=== PATIENT | male | born 1940 | race Caucasian/White ===

== ENCOUNTER 2018-06-17 09:38 | Inpatient (IN) | payer MEDICARE, OTHER ==
[~2018-06-17] VITALS: Ht 170.2 cm; Wt 83.5 kg
--- OUTSIDE RECORDS SUMMARY | ~2018-06-17 | XMS | Encounter Summary ---
Demographics + + + | Address | [address] | | | [place] [address] | + + + | Home Phone | | + + + | Preferred Language | Unknown | + + + | Marital Status | Unknown | + + + | Yazidi Affiliation | PRO | + + + | Race | White | + + + | Ethnic Group | Not or | + + + Author + + + | Author | [facility] | + + + | Organization | [facility] | + + + | Address | Unknown | + + + | Phone | Unavailable | + + + Support + + +---------+ + | Name | Relationship | Address | Phone | + + +---------+ + | FATUMA MAS | ECON | Unknown | | + + +---------+ + Care Team Providers + +------+ + | Care Bolt Header Name | Role | Phone | + +------+ + | Gilberto Estrada MD | PCP | | + +------+ + Encounter Details +--------+ + + + + | Date | Type | Department | Care Team | Description | +--------+ + + + + | 06/12/ | Anesthesia | 6A Intra [facility] | Princess Ward MD | | | 2018 | Event | [facility] | [address] | | | | | Admitting Desk | [facility] | | | | | Located on the [address] | [place], [place] | | | | | floor [address] | [address] | | | | | [facility] | [phone] | | | | | [place], [place] | | | | | | [address] | | | +--------+ + + + + Anesthesia Record + + + + + | Procedure Name | Responsible | Anesthesia Start | Anesthesia Stop Time | | | Anesthesiologist | Time | | + + + + + | KNEE INCISION AND | | | | | DRAINAGE WITH | | | | | ANTIBIOTIC SPACER | | | | | PLACEMENT (Right ) | | | | + + + + + +----+---+ + + | Da | T | Event | Comment | | te | i | | | | | m | | | | | e | | | +----+---+ + + | 08 | 1 | Quick Note | Wrong patient MRN (patient has 2 MRN/charts). Case was done under | | /1 | 4 | | another posting with correct patient MRN/chart. | | 7/ | 5 | | | | 20 | 0 | | | | 18 | | | | +----+---+ + + +------+ | Meds | +------+ + + + No medications | on file. | + + + + + | No agents on file. | + + + + | No blood administrations on file. | + + +--------+ + +---------+ | Type | Details | Placement | Removal | +--------+ + +---------+ | Wound | 06/11/18; 2229; Yes; Left; | 06/11/182229 by | | | | Medial; leg; Ulceration | Chichi Mackey | | | | | FLY | | +--------+ + +---------+ | Incisi | 06/12/18; 1414; [place]; Right; | 06/12/18 1414 by | | | on | knee | Lauren Vega RN | | +--------+ + +---------+ | PICC - | 06/16/18; 1450; Frances Boo RN; | 06/16/18 1450 by | | | | Valved; Right; Arm; Basilic; 4 | Christina March RN | | | Single | Fr; 1:Purple; Yes; [email or web address] | | | | Lumen | | | | +--------+ + +---------+ in this encounter Social History + +-------+ [...] as of this encounter Plan of Treatment +--------+---------+ + + + | Date | Type | Specialty | Care Team | Description | +--------+---------+ + + + | 07/23/ | Office | Orthopedics | Sandoval Hyde, | | | 2017 | Visit | | [address] | | | | | | [address] | | | | | | [place], [place] | | | | | | [address] | | | | | | [phone] | | | | | | | | +--------+---------+ + + + as of this encounter Visit Diagnoses Not on filein this encounter"
--- OUTSIDE RECORDS SUMMARY | ~2018-06-17 | XMS | Encounter Summary ---
Demographics + + + | Address | [address] | | | [place] [address] | + + + | Home Phone [...] Team Providers + +------+ + | Care Continuing Education Specialist Name | Role | Phone | + +------+ + | Gilma Culver MD | PCP | | + +------+ [...] 06/12/ | Surgery | 6A Intra Op [facility] | Sandoval Hyde, | RIGHT KNEE I&D, POLY | | 2017 | | [facility] | MD [address] | EXCHANGE MICRO x 7 | | | | Admitting Desk | [facility] | PATH x 2 | | | | Located on the | [place], [place] | | | | | floor [address] | [address] | | | | | [facility] | [phone] | | | | | [place], [place] | | | | | | [address] | | | +--------+---------+ + + + [...] + + + as of this encounter Last Filed Vital Signs + + + + | Vital Sign | Reading | Time Taken | + + + + | Blood Pressure | 119/47 | 06/17/2018 10:02 AM PDT | + + + + | Pulse | 76 | 06/17/2018 10:02 AM PDT | + + + + | Temperature | 36.7 C (98.1 F) | 06/17/2018 3:48 AM PDT | + + + + | Respiratory Rate | 14 | 06/17/2018 3:48 AM PDT | + + + + | Oxygen Saturation | 99% | 06/17/2018 10:02 AM PDT | + + + + | Inhaled Oxygen | - | - | | Concentration | | | + + + + | Weight | 89.9 kg (198 lb 3.2 | 06/17/2018 7:35 AM PDT | | | oz) | | + + + + | Height | 170.2 cm (5' 7") | 06/12/2018 9:33 PM PDT | + + + + | Body Mass Index | 31.04 | 06/17/2018 7:35 AM PDT | + + + + in this encounter Functional Status + + [...] + + + as of this encounter Discharge Summaries Zack Mahmood MD - 06/16/2018 5:49 PM PDTFormatting of this note may be different from the original. Clinical Hospitalist Discharge Summary PCP: Gilma Culver MD Author: Zack Mahmood MD Discharging Physician: Zack Mahmood MD Admission Date: 06/11/2018 Discharge Date: [...] polyethylene exchange on 06/12/18 Reason For Admission: Duane Mas is a 78 y.o. 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 He will F/U with Dr. Hyde (orthopedic surgery) on 07/23/18 at 10:40am. ID will arran ge a follow-up appointment for that day as well. He has been receiving Tylenol #3 for pain c ontrol with excellent response. He will continue PT/OT at [facility] swing bed unit. Per orthopedic surgery, [...] superior vena cava Consultants: Orthopedic surgery- Dr. Sandoval Hyde ID- Dr. Ishaan Villalobos Outstanding labs/studies: none Code Status: Full POLST completed: no Core Measures: Diagnosis of CHF: Yes. Patient is not on an OMID-I/ARB because of renal og lure. Patient is [...] I-CAPS 280-10-2 mg Cap Generic drug: antiox.mv no.[id number] Take 1 capsule by mouth once daily. [...] (Non-Steroidal Anti-Inflammatory Drug) Renal Failure Avoid per Health Promotion Manager recommendations Sulfa (Sulfonamide Antibiotics) Rash Vital Signs [...] for after-discharge care Discharge Destination IP [facility] . Specialty: Acute Care Hospital Contact information [address] [place] [address] [place] Location: [facility] swing bed unit Appointments: Dr. Hyde on 07/23/18 at 10:40am. The discharge note was forwarded to the PCP for review. Discharging Physician: Zack Mahmood MD Suggested CPT: 33487 Discharge Management > 30 minute I spent more than 35 minutes gryj-cc-uapy with the patient of which 70% was spent counselin g the patient about plans for discharge and F/U with ortho and ID, and coordinating care wit h nursing, ortho, ID and case management. in this encounter Discharge Instructions Padmini Magaña RN - 06/17/2018Patient Education Materials: AVS Additional Instructions: None Discharge Nurse: PADMINI MAGAÑA RN Date: 06/17/2018 Discharge Time: 10:58 AM in this encounter Medications at Time of Discharge + + + +---------+ + + | Medication | Sig. | Disp. | Refills | Start | End Date [...] | Take 1 tablet by | | | | | | acetaminophen-codein | mouth every six | | | | | | e 300-30 mg oral | hours as needed. | | | | | | tablet | | | | | | + + + +---------+ + + | allopurinol 300 mg | Take 150 mg by mouth | | | | | | oral tablet | once daily. | | | | | + + + +---------+ + + | allopurinol 300 mg | Take 300 mg by mouth | | | | | | oral tablet | once daily. | | | | | + + + +---------+ + + | antiox.mv | Take 1 capsule by | | | | | | no.[id number] | mouth once daily. | | | | | | (I-CAPS) 280-10-2 | | | | | | | mg oral capsule | | | | | | + + + +---------+ + + | carvedilol 12.5 mg | Take 12.5 mg by | | | | | | oral tablet | mouth two times | | | | | | | daily. Administer | | | | | | | with food. | | | | | + + + +---------+ + + | carvedilol 12.5 mg | Take 12.5 mg by | | | | | | oral tablet | mouth two times | | | | | | | daily. Administer | | | | | | | with food. | | | | | + + + +---------+ + + | ceFAZolin | Inject 2,000 mg into | 180 g | 1 | 06/17/20 | | | injection recon | the vein (IV) every | | | 18 | 8 | | solnIndications: | eight hours. To be | | | | | | bone/joint infection | admixed per infusion | | | | | | | pharmacy standard | | | | | | | policy and/or | | | | | | | procedure. | | | | | | | Indications: | | | | | | | bone/joint infection | | | | | + + + +---------+ + + | cephALEXin 500 mg | Take 500 mg by mouth | | | | | | oral capsule | every six hours. | | | | | + + + +---------+ + + | cholecalciferol | Take 1,000 Units by | | | | | | (Vitamin D3) 1,000 | mouth once daily. | | | | | | unit oral tablet | | | | | | + + + +---------+ + + | colchicine 0.6 mg | Take 0.6 mg by mouth | | | | | | oral tablet | two times daily. | | | | | + + + +---------+ + + | colchicine 0.6 mg | Take 0.6 mg by mouth | | | | | | oral tablet | once daily as | | | | | | | needed (gout flare). | | | | | | | | | | | | + + + +---------+ + + | doxycycline | Take 100 mg by mouth | | | | | | hyclate 100 mg oral | every twelve hours. | | | | | | tablet | (Pharmacist to | | | | | | | substitute salt form | | | | | | | as needed) | | | | | + + + +---------+ + + | eplerenone 25 mg | Take 12.5 mg by | | | | | | oral tablet | mouth once daily. | | | | | + + + +---------+ + + | | Inhale 1 puff two | | | | | | fluticasone-salmeter | times daily. | | | | | | ol 250-50 mcg/dose | | | | | | | inhalation blister | | | | | | | with device | | | | | | + + + +---------+ + + | folic acid 0.4 mg | Take 400 mcg by | | | | | | oral tablet | mouth once daily. | | | | | + + + +---------+ + + | folic acid 0.4 mg | Take 400 mcg by | | | | | | oral tablet | mouth once daily. | | | | | + + + +---------+ + + | glimepiride 4 mg | Take 4 mg by mouth | | | | | | oral tablet | once daily with | | | | | | | breakfast. | | | | | + + + +---------+ + + | glimepiride 4 mg | Take 4 mg by mouth | | | | | | oral tablet | once daily with | | | | | | | breakfast. | | | | | + + [...] Thrombosis | | | | | | Deep Vein | Prevention | | | | | | Thrombosis | | | | | | | Prevention | | | | | | + + + +---------+ + + | isosorbide | Take 60 mg by mouth | | | | | | mononitrate CR 60 mg | once daily. | | | | | | oral tablet | | | | | | | extended release 24 | | | | | | | hr | | | | | | + + + +---------+ + + | magnesium oxide | Take 400 mg by mouth | | | | | | 400 mg oral tablet | once daily. | | | | | + + + +---------+ + + | magnesium oxide | Take 400 mg by mouth | | | | | | 400 mg oral tablet | once daily. | | | | | + + + +---------+ + + | metFORMIN 500 mg | Take 500 mg by mouth | | | | | | oral tablet | two times daily. | | | | | + + + +---------+ + + | metFORMIN SR 500 | Take 1,000 mg by | | | | | | mg oral tablet | mouth two times | | | | | | extended release 24 | daily with meals. | | | | | | hr | Administer with | | | | | | | evening meal. | | | | | + + + +---------+ + + | methotrexate 2.5 | Take 15 mg by mouth | | | | | | mg oral tablet | every seven days. | | | | | + + + +---------+ + + | methotrexate 2.5 | Take 2.5 mg by mouth | | | | | | mg oral tablet | every seven days. | | | | | + + + +---------+ + + | multivitamin oral | Take 1 tablet by | | | | | | tablet | mouth once daily. | | | | | + + + +---------+ + + | mupirocin 2 % | three times daily. | | | | | | topical ointment | Apply to affected | | | | | | | area. | | | | | + + + +---------+ + + | niacin 500 mg oral | Take 500 mg by mouth | | | | | | tablet | once daily in the | | | | | | | evening. | | | | | + + + +---------+ + + | Niacinamide 500 mg | Take 1 tablet by | | | | | | oral tablet | mouth three times | | | | | | | daily. | | | | | + + + +---------+ + + | omega | Take by mouth. | | | | | | 2-gnx-lhl-fish oil | | | | | | | (FISH OIL) | | | | | | | 100-160-1,000 mg | | | | | | | oral capsule | | | | | | + + + +---------+ + + | omega-3 fatty | Take 1 capsule by | | | | | | acids (FISH OIL | mouth once daily. | | | | | | ORAL) | | | | | | + + + +---------+ + + | senna-docusate | Take 1 tablet by | 60 | 0 | 06/16/20 | | | 8.6-50 mg oral | mouth two times | tablet | | 18 | | | tablet | daily. | | | | | + + + +---------+ + + | simvastatin 40 mg | Take 40 mg by mouth | | | | | | oral tablet | once daily in the | | | | | | | evening. | | | | | + + + +---------+ + + | torsemide 20 mg | Take 20 mg by mouth | | | | | | oral tablet | once daily. | | | | | + + + +---------+ + + | torsemide 20 mg | Take 20 mg by mouth | | | | | | oral tablet | two times daily. | | | | | + + + +---------+ + + | triamcinolone | Apply to affected | | | | | | acetonide 0.1 % [...] Take 2.5 mg by mouth | | | | | | oral tablet | once daily. | | | | | + + + +---------+ + + | warfarin 2.5 mg | Take 2 tablets by | | | | | | oral tablet | mouth every | | | | | | | Friday. Take 1 | | | | | | | tablet by mouth all | | | | | | | other days of the | | | | | | | week. | | | | | + + + +---------+ + + as of this encounter Progress Notes Elias Soriano MD - 06/17/2018 7:56 AM PDTFormatting of this note may be different from the original. 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 Orthopaedic Procedure(s) & Date(s): 06/13/2018 1. Right knee arthrotomy with drainage for infection and polyethylene exchange 2. Application TINO disposible negative pressure wound therapy dressing right knee [id number] Subjective: Doing ok overall. No CP/SOB. Tolerating [...] refill < 2 seconds Assessment & Plan: Duane Mas is a 78 y.o.M with the orthopaedic diagnoses and procedures listed above. Today's specific concerns include: Recovering well. PICC placed yesterday. ID final recs for 6 weeks of IV ceftriaxone. Dispo: Plan to DC today to SNF in [place]. SNF can pull sutures at 2 weeks from operat kai date (June 27 is 2 weeks post op). Plan to return to Dr. Hyde' clinic 6 weeks an d also have ID clinic visit on that day. Appreciate [facility] and ID help in managing this [...] knee at that time. Elias Soriano MD [facility] Department of Orthopaedics and Rehabilitation PGY-1 Pager [phone] Zack Mahmood MD - 06/16/2018 4:42 PM PDTFormatting of this note may be different from the original. HOSPITALIST INPATIENT PROGRESS NOTE Author: Zack Mahmood MD PCP: Gilma Culver MD Hospital Day:5 24h Events: Changed from [...] lower superior vena cava Assessment and plan: Duane Mas is a 78 y.o. 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 systolic heart failure (EF 45%) [...] eta afua, statin, aldosterone antagonist, without recent OMID inbitor / ARB use given prog ressive [...] Dispo: Anticipate discharge tomorrow to [facility] bed unit if renal function is s table Code status: Full code Diet: Regular diet Prophy: warfarin and heparin Zack Mahmood MD Bed Control Specialistpainting department supervisor Clinical Hospitalist and Medicine Teaching Services [facility] Pager [phone] Suggested CPT: 67906 Subsequent Visit Detailed/High complexity 35 min I spent 37 minutes ouhs-kx-hkho with the patient of which 78% was spent counseling the kassy ent about his infection, kidneys and heart and talking about discharge plans, and in coordin ation of care with nursing, pharmacy and case management. Elias Soriano MD - 06/16/2018 9:24 AM PDTFormatting of this note may be different from the original. 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 Orthopaedic Procedure(s) & Date(s): 06/13/2018 1. Right knee arthrotomy with drainage for infection and polyethylene exchange 2. Application TINO disposible negative pressure wound therapy dressing right knee [id number] Subjective: Doing ok overall. No CP/SOB. Tolerating [...] neuropathy baseline "whole foot is numb" (per massiel chris). Unchanged sensation to deep/superficial peroneal, lateral/medial plantar distributio ns Vascular: digits warm & well perfused, capillary refill < 2 seconds Assessment & Plan: Duane Mas is a 78 y.o.M with the [...] to home as t ransporting back to [place] may present the patient and family undo hardship. 6. Dressings/Drains: Pulled yesterday? 7. Dispo/Discharge: Anticipate discharge to SNF in next 1-3 days if all criteria met. 8. Follow-up: Please call the clinic to make a follow up appointment in approximately 2 wee ks with ORTHO TRAUMA & FRACTURE, . AP and lateral of R knee at that time. Elias Soriano MD [facility] Department of Orthopaedics and Rehabilitation PGY-1 Pager [phone] Tanvir Ayala - 06/16/2018 8:20 AM PDTFormatting of this note may be different from the natalia ginal. INPATIENT INFECTIOUS DISEASE PROGRESS NOTE ID TEAM: B Patient: Duane Mas PCP: Gilma Culver MD Author: Tanvir Ayala Date of Admission: [...] three and a half hours away from [place]. At this time, we are unsur e of his ability to follow up with an OPAT clinic or if there is a provider near [place], where the patient resides. 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 This patient was staffed [facility] Dr. Villalobos, who agrees with the above assessment and plan unless otherwise documented. Tanvir Ayala, [facility] P SUBJECTIVE Interval Events: No acute events overnight S: patient reports he is feeling well this morning. States he was able to meet with a director case and had decided to go to a [...] 5 mg 5 mg oral QPM Stephan Mercado MD - 06/15/2018 8:18 AM PDTFormatting of this note may be different from the original. HOSPITALIST INPATIENT PROGRESS NOTE Author: Dona Mercado MD PCP: Gilma Culver MD Hospital Day:4 ID:This is an 78 [...] beta afua, statin, aldosterone antagonist, without recent OMID inb itor / ARB use given progressive renal dysfunction. Also uses torsemide 20 mg bid at home. W ill likely need to restart diuretics once patient begins taking in more PO. - Lift Na/fluid restriction today - daily weights, strict I/Os - hold diuretics for now (torsemide, spironolactone) - cont carvedilol 12.5 mg bid - no OMID/ARB given renal dysfunction #DM2 - Non-insulin dependent. [...] Dona Mercado MD Division of Hospital Medicine [facility] Pager [phone] I spent more than 35 minutes njis-wq-jnud with the patient of which greater than 50% was sp ent counseling the patient or in coordination of care. Sisi Pablo, AGACNP - 06/15/2018 7:40 AM PDTFormatting of this note may be different from the original. 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 Orthopaedic Procedure(s) & Date(s): 06/13/2018 1. Right knee arthrotomy with drainage for infection and polyethylene exchange 2. Application TINO disposible negative pressure wound therapy dressing right knee [id number] Subjective: Doing ok overall, not too much pain in right knee. Looking forward to getting insulation board back tender to home, "My wants to [...] neuropathy baseline "whole foot is numb" (per massiel chris) Vascular: digits warm & well perfused, capillary refill < 2 seconds Assessment & Plan: Duane Mas is a 78 y.o.M with the [...] to home as t ransporting back to [place] may present the patient and family undo hardship. 6. Dressings/Drains: Continue drain 7. Dispo/Discharge: Anticipate discharge to SNF in next 1-3 days if all criteria met. 8. Follow-up: Please call the clinic to make a follow up appointment in approximately 2 wee ks with ORTHO TRAUMA & FRACTURE, . AP and lateral of R knee at that time. Sisi Pablo, [facility] Orthopaedic Trauma Surgery Pager [phone] Stephan Mercado MD - 06/14/2018 8:59 AM PDTFormatting of this note may be different from the original. HOSPITALIST INPATIENT PROGRESS NOTE Author: Dona Mercado MD PCP: Gilma Culver MD Hospital Day:3 ID:This is an 78 [...] afua, statin, aldosterone antagon ist, without recent OMID inbitor / ARB use given progressive renal dysfunction. Also uses tor semide 20 mg bid at home. Will likely need to restart diuretics once patient begins taking i n more PO. - Na/fluid restriction, daily weights, strict I/Os - no diuretics for now (torsemide, spironolactone) - cont carvedilol 12.5 mg bid - no OMID/ARB given renal dysfunction #DM2 - Non-insulin dependent. [...] Dona Mercado MD Division of Hospital Medicine [facility] Pager [phone] I spent more than 35 minutes [id number] with the patient of which greater than 50% was sp ent counseling the patient or in coordination of care. Serenity Pleitez MD - 06/14/2018 8:53 AM PDTFormatting of this note may be different fro m the original. 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 Orthopaedic Procedure(s) & Date(s): 06/13/2018 1. Right knee arthrotomy with drainage for infection and polyethylene exchange 2. Application TINO disposible negative pressure wound therapy dressing right knee [id number] Subjective: Pain improving in R knee. Objective: [...] refill < 2 seconds Assessment & Plan: Duane Mas is a 78 y.o.M with the [...] a follow [facility] 2 [facility] with ORTHO TRAUMA & FRACTURE, . AP and lateral of R knee at that time. SERENITY PLEITEZ MD Pager [phone] Stephan Mercado MD - 06/13/2018 9:51 AM PDTFormatting of this note may be different from the original. HOSPITALIST INPATIENT PROGRESS NOTE Author: Dona Mercado MD PCP: Gilma Culver MD Hospital Day:2 ID: This is an [...] beta afua, statin, aldosterone antagonist, without recent OMID inbi tor / ARB use given progressive renal dysfunction. Also uses torsemide 20 mg bid at home. Wi ll likely need to restart diuretics once patient begins taking in more PO. - Na/fluid restriction, daily weights, strict I/Os - no diuretics for now (torsemide, spironolactone) - cont carvedilol 12.5 mg bid - no OMID/ARB given renal dysfunction #DM2 - Non-insulin dependent. [...] Dona Mercado MD Division of Hospital Medicine [facility] Pager [phone] I spent more than 35 minutes xmrt-rk-kzno with the patient of which greater than 50% was sp ent counseling the patient or in coordination of care. Serenity Pleitez MD - 06/13/2018 8:20 AM PDTFormatting of this note may be different fro m the original. 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 Orthopaedic Procedure(s) & Date(s): 06/13/2018 1. Right knee arthrotomy with drainage for infection and polyethylene exchange 2. Application TINO disposible negative pressure wound therapy dressing right knee [id number] Subjective: Painful in R knee today, but [...] refill < 2 seconds Assessment & Plan: Duane Mas is a 78 y.o.M with the [...] lateral of R knee at that time. SERENITY PLEITEZ MD Pager [phone] Stephan Mercado MD - 06/12/2018 1:24 PM PDTFormatting of this note may be different from the original. HOSPITALIST INPATIENT PROGRESS NOTE Author: Dona Mercado MD PCP: Gilma Culver MD Hospital Day:1 ID: This is an [...] well. Ready for surgery today. Current Medications: [DEC Hold] dextrose 5%-NaCl 0.45% IV infusion, 50 mL/hr, intravenous, CONTINUOUS [DEC Hold] dextrose 50 % in water IV 25 mL, 25 mL, intravenous, PRN [DEC Hold] glucagon (GLUCAGEN) injection 1 mg, 1 mg, intramuscular, PRN [DEC Hold] glucose chewable tablet 16 g, 16 g, oral, PRN [DEC Hold] insulin lispro (HUMALOG) injection, , subcutaneous, [...] beta afua, statin, aldosterone antagonist, without recent OMID inbi tor / ARB use given progressive renal dysfunction. Also uses torsemide 20 mg bid at home. - Na/fluid restriction, daily weights, strict I/Os - no diuretics for now - cont carvedilol 12.5 mg bid - hold spironolactone for now - no OMID/ARB given renal dysfunction #DM2 - Non-insulin dependent. [...] Dona Mercado MD Division of Hospital Medicine [facility] Pager [phone] I spent more than 35 minutes [id number]-kz-[id number] with the patient of which greater than 50% was sp ent counseling the patient or in coordination of care. in this encounter Plan of Treatment +--------+---------+ + + + | Date | Type | Specialty | Care Team | Description | +--------+---------+ + + + | 07/23/ | Office | Orthopedics | Sandoval Hyde, | | | 2019 | Visit | | [address] | | | | | | [address] | | | | | | [place], [place] | | | | | | [address] | | | | | | [phone] | | | | | | | | +--------+---------+ + + + + +--------+ + + | Name | Priori | Associated Diagnoses | Date/Time | | | ty | | | + +--------+ + + | CULTURE, BLOOD BACTI & YEAST | Urgent | | 06/11/2018 10:29 PM | | | | | PDT | + +--------+ + + | CULTURE, BLOOD BACTI & YEAST | Urgent | | 06/11/2018 10:29 PM | | | | | PDT | + +--------+ + + | CULTURE, BLOOD BACTI & YEAST [facility] | Urgent | | 06/11/2018 10:29 PM | | | | | PDT | + +--------+ + + | CULTURE, BLOOD BACTI & YEAST [facility] | Urgent | | 06/11/2018 10:29 PM | | | | | PDT | + +--------+ + + | TYPE AND SCREEN | Urgent | | 06/12/2018 10:23 PM | | | | | PDT | + +--------+ + + | CULTURE, BODY FLUID | Urgent | | 06/12/2018 1:43 PM | | | | | PDT | + +--------+ + + | CULTURE, TISSUE-PROSTHETIC JOINT | Routin | | 06/12/2018 1:54 PM | | INFECTION AER AND MARIELOS | e | | PDT | + +--------+ + + | CULTURE, TISSUE-PROSTHETIC JOINT | Routin | | 06/12/2018 1:54 PM | | INFECTION AER AND MARIELOS | e | | PDT | + +--------+ + + | CULTURE, TISSUE-PROSTHETIC JOINT | Routin | | 06/12/2018 1:54 PM | | INFECTION AER AND MARIELOS | e | | PDT | + +--------+ + + | CULTURE, TISSUE-PROSTHETIC JOINT | Routin | | 06/12/2018 1:54 PM | | INFECTION AER AND MARIELOS | e | | PDT | + +--------+ + + | CULTURE, TISSUE-PROSTHETIC JOINT | Routin | | 06/12/2018 1:54 PM | | INFECTION AER AND MARIELOS | e | | PDT | + +--------+ + + + +--------+ + + | Name | Priori | Associated Diagnoses | Order Schedule | | | ty | | | + +--------+ + + | CULTURE, BLOOD BACTI & YEAST | Urgent | | One Time for 1 | | | | | Occurrences starting | | | | | 06/11/2018 until | | | | | 06/11/2018 | + +--------+ + + | CULTURE, BLOOD BACTI & YEAST | Urgent | | One Time for 1 | | | | | Occurrences starting | | | | | 06/11/2018 until | | | | | 06/11/2018 | + +--------+ + + | TYPE AND SCREEN | Urgent | | One Time for 1 | | | | | Occurrences starting | | | | | 06/12/2018 until | | | | | 06/12/2018 | + +--------+ + + | ANTIBODY SCREEN | Urgent | | Once for 1 | | | | | Occurrences starting | | | | | 06/12/2018 until | | | | | 06/12/2018 | + +--------+ + + | BASIC METABOLIC SET (NA, K, CL, | Routin | | Daily, default to | | TCO2, BUN, CR, GLU, CA) | e | | 0500. until | | | | | discontinued | | | | | starting 06/15/2018, | | | | | 3 completed | + +--------+ + + | INR | Routin | | Daily, default to | | | e | | 0500. until | | | | | discontinued | | | | | starting 06/16/2018, | | | | | 2 completed | + +--------+ + + | X-RAY PORTABLE CHEST PICC LINE | Routin | | As Needed for 3 | | CHECK | e | | Occurrences starting | | | | | 06/15/2018 | + +--------+ + + as of this encounter Procedures + +--------+ + + + | Procedure Name | Priori | Date/Time | Associated Diagnosis | Comments | | | ty | | | | + +--------+ + + + | KNEE INCISION AND | Urgent | 06/12/2018 | RIGHT KNEE | | | DRAINAGE WITH | | 2:15 PM | PROSTHETIC JOINT | | | ANTIBIOTIC SPACER | Surgic | PDT | INFECTION | | | PLACEMENT | al | | | | + +--------+ + + + in this encounter Results CAPILLARY BLOOD GLUCOSE (NO CHG), POC (06/17/2018 8:59 AM) + +---------+ + | Component | Value | Ref Range | + +---------+ + | BLOOD GLUCOSE, POC | 135 (H) | 70 - 99 mg/dL | + +---------+ + + + + | Specimen | Performing Laboratory | + + + | | [facility], POINT OF CARE TESTS [address] | | | [place] [address] | + + + INR (06/17/2018 3:59 AM) + + + + | Component | Value | Ref Range | + + + + | INR | 1.78 (H) | 0.90 - 1.20 INR | + + + + + + + | Specimen | Performing Laboratory | + + + | Blood | [facility], CORE [address] | | | [place] [address] | + + + + + | Narrative | + + | INR Therapeutic ranges for full anticoagulation: INR for Venous | | Thromboembolism (2.0 - 3.0) INR INR for most patients with | | mech. valves (2.5 - 3.5) INR | + + BASIC METABOLIC SET (NA, K, CL, TCO2, BUN, CR, GLU, CA) (06/17/2018 3:59 AM) + + + + | Component | Value | Ref Range | + + + + | GLUCOSE, PLASMA | 154 (H) | 70 - 99 mg/dL | | (LAB) | | | + + + + | BUN, PLASMA (LAB) | 40 (H) | 6 - 20 mg/dL | + + + + | CREATININE PLASMA | 1.73 (H) | 0.70 - 1.30 mg/dL | | (LAB) | | | + + + + | EGFR - | 46 (L) | >60 mL/min | | PARAGUAYAN | | | + + + + | EGFR NON | 38 (L) | >60 mL/min | | -PARAGUAYAN | | | + + + + | SODIUM, PLASMA (LAB) | 138 | 136 - 145 mmol/L | + + + + | POTASSIUM, PLASMA | 4.0 | 3.4 - 5.0 mmol/L | | (LAB) | | | + + + + | CHLORIDE, PLASMA | 101 | 97 - 108 mmol/L | | (LAB) | | | + + + + | TOTAL CO2, PLASMA | 32 | 21 - 32 mmol/L | | (LAB) | | | + + + + | CALCIUM, PLASMA | 8.5 (L) | 8.6 - 10.2 mg/dL | | (LAB) | | | + + + + | ANION GAP | 5 | 4 - 11 mmol/L | + + + + | POTASSIUM CMNT | No Hemo | | + + + + + + + | Specimen | Performing Laboratory | + + + | Blood | [facility], CORE [address] | | | [place] [address] | + + + + + | Narrative | + + | GFR is estimated using the MDRD equation recommended by the National Kidney Disease | | Education Program. Estimated GFR Interpretive Information: <60 mL/min/1.73 sq | | m Chronic Kidney Disease <15 mL/min/1.73 sq | | m Kidney Failure Estimated GFR greater that 60 mL/min/1.73 | | sq m is of limited clinical value. The MDRD equation is not valid in the following | | situations: - Patients under 18 years of age - Severe malnutrition or obesity - | | Vegetarian diet - Rapidly changing kidney function - Amputees, paraplegics, or other | | muscle-wasting diseses | + + CAPILLARY BLOOD GLUCOSE (NO CHG), POC (06/16/2018 11:20 PM) + +---------+ + | Component | Value | Ref Range | + +---------+ + | BLOOD GLUCOSE, POC | 204 (H) | 70 - 99 mg/dL | + +---------+ + + + + | Specimen | Performing Laboratory | + + + | | [facility], POINT OF CARE TESTS [address] | | | [place] [address] | + + + CAPILLARY BLOOD GLUCOSE (NO CHG), POC (06/16/2018 6:31 PM) + +---------+ + | Component | Value | Ref Range | + +---------+ + | BLOOD GLUCOSE, POC | 284 (H) | 70 - 99 mg/dL | + +---------+ + + + + | Specimen | Performing Laboratory | + + + | | [facility], POINT OF CARE TESTS [address] | | | [place] [address] | + + + X-RAY PORTABLE CHEST 1 VIEW (06/16/2018 4:29 PM) + + + | Specimen | Performing Laboratory | + + + | | [facility] VOICE RECOGNITION 2 | + + + + + | Narrative | + + | EXAM: SC CHEST 1 VIEW HISTORY: PICC placement. Prosthetic knee infection. | | COMPARISON: None. FINDINGS: Right upper extremity PICC is obscured by pacer | | leads although tip is likely in the mid or lower superior vena cava.. Dual lead | | pacemaker is in place over the left chest with intact leads. Sternotomy wires are | | intact. The cardiomediastinal contour is normal. Minimal bibasilar | | atelectasis/scarring evident. There is blunting of both costophrenic angles, either | | pleural fluid or thickening. There is no pneumothorax. IMPRESSION: Right upper | | extremity PICC obscured by pacer leads with tip in either the mid or lower superior vena | | cava. I have personally reviewed the images and, if necessary, edited the report. I | | agree with the report as now presented. Final signature: Woody Ortez MD | | 06/16/2018 4:43 PM Preliminary: Claribel Byrnes MD Dictation initiated: Claribel Byrnes MD 06/16/2018 4:27 PM | + + + + | Procedure Note | + + | Service Account, [employer] Res In Interface - 06/16/2018 4:44 PM PDT EXAM: SC CHEST 1 | | VIEW HISTORY: PICC [...] MD 06/16/2018 4:27 PM | + + PICC LINE (06/16/2018 3:40 PM) + + | Narrative | + + | Alina Mayberry RN 06/16/2018 3:44 PM PICC LINE Performed by: CRISTINA | | ALINA Authorized by: ZACK MAHMOOD PICC/Midline Insertion Procedure Note | | Indications:Administration IV fluids and meds, Antibiotics and Frequent lab draws | | Procedure location: Unit:[facility] Room: 14 Providers: Attending name: Attending | | physically present: No PICC Nurse name: Alina Fair RN BSN VAT Assisted by | | Christina March RN BSN VAT Pre-Procedure Consent: written consent obtained Consent | | given by: Patient Patient identity confirmed per protocol: Yes Team Pause: | | Immediatly prior to the procedure a pause per protocol was called. A pause verifies | | correct patient, procedure, equipment, system support specialist and site/side marked as required. | | CLABSI Prevention Bundle: Skin preparation: Chloraprep Protective | | barrier: Cap, Mask, Hand scrub, Gown, Gloves and Full body drape. Cap and mask | | worn by assistive personnel.Sterile Ultrasound techniques (sterile gel, and sterile | | probe cover) used Dressing: Dressing applied prior | | of removal of full barrier drape and hemostatic agent applied Procedure Details | | Patient was placed in appropriate position The vascular anatomy was identified by | | Ultrasound Guidance.wire through the needle, introducer over the wire, then catheter | | through the introducer Tip was placed using TLS (Tip Locating System) and TPS (Tip | | Positioning System). . A non-tunneled PICC Single lumen 4 Fr was placed in the | | Right Arm area Basilic vein. Catheter lot number: [id number] with a length of 55 cm | | was selected and trimmed 14 to a remaining length of 41 cm All ports | | aspirated for blood and flushed with saline Procedure comments: Vessel diameter | | measured without tourniquet at 0.45cm Upper arm measured 10cm above the AC at 30.5cm | | Power-injectable line: yes Attempts 1 attempt(s) were made Complications None | | PICC catheter tip location Chest radiograph ordered to verify placement and Line | | verified by radiograph Adjustments made after chest film obtained: None External | | measurement of catheter exposed: 0 cm. PICC catheter tip location: Distal SVC | | Estimated blood loss: <10mL | + + VAT: PICC INSERTION W/US (06/16/2018 2:15 PM) + + | Narrative | + + | See procedure note. | + + CAPILLARY BLOOD GLUCOSE (NO CHG), POC (06/16/2018 9:03 AM) + +---------+ + | Component | Value | Ref Range | + +---------+ + | BLOOD GLUCOSE, POC | 123 (H) | 70 - 99 mg/dL | + +---------+ + + + + | Specimen | Performing Laboratory | + + + | | [facility] TEST[facility] [address] | | | [place] [address] | + + + INR (06/16/2018 4:23 AM) + + + + | Component | Value | Ref Range | + + + + | INR | 1.51 (H) | 0.90 - 1.20 INR | + + + + + + + | Specimen | Performing Laboratory | + + + | Blood | [facility], CORE [address] | | | [place] [address] | + + + + + | Narrative | + + | INR Therapeutic ranges for full anticoagulation: INR for Venous | | Thromboembolism (2.0 - 3.0) INR INR for most patients with | | mech. valves (2.5 - 3.5) INR | + + BASIC METABOLIC SET (NA, K, CL, TCO2, BUN, CR, GLU, CA) (06/16/2018 4:23 AM) + + + + | Component | Value | Ref Range | + + + + | GLUCOSE, PLASMA | 122 (H) | 70 - 99 mg/dL | | (LAB) | | | + + + + | BUN, PLASMA (LAB) | 45 (H) | 6 - 20 mg/dL | + + + + | CREATININE PLASMA | 2.03 (H) | 0.70 - 1.30 mg/dL | | (LAB) | | | + + + + | EGFR - | 38 (L) | >60 mL/min | | PARAGUAYAN | | | + + + + | EGFR NON | 32 (L) | >60 mL/min | | -PARAGUAYAN | | | + + + + | SODIUM, PLASMA (LAB) | 135 (L) | 136 - 145 mmol/L | + + + + | POTASSIUM, PLASMA | 3.7 | 3.4 - 5.0 mmol/L | | (LAB) | | | + + + + | CHLORIDE, PLASMA | 99 | 97 - 108 mmol/L | | (LAB) | | | + + + + | TOTAL CO2, PLASMA | 32 | 21 - 32 mmol/L | | (LAB) | | | + + + + | CALCIUM, PLASMA | 8.2 (L) | 8.6 - 10.2 mg/dL | | (LAB) | | | + + + + | ANION GAP | 4 | 4 - 11 mmol/L | + + + + | POTASSIUM CMNT | No Hemo | | + + + + + + + | Specimen | Performing Laboratory | + + + | Blood | [facility], CORE [address] | | | [place] [address] | + + + + + | Narrative | + + | GFR is estimated using the MDRD equation recommended by the National Kidney Disease | | Education Program. Estimated GFR Interpretive Information: <60 mL/min/1.73 sq | | m Chronic Kidney Disease <15 mL/min/1.73 sq | | m Kidney Failure Estimated GFR greater that 60 mL/min/1.73 | | sq m is of limited clinical value. The MDRD equation is not valid in the following | | situations: - Patients under 18 years of age - Severe malnutrition or obesity - | | Vegetarian diet - Rapidly changing kidney function - Amputees, paraplegics, or other | | muscle-wasting diseses | + + CAPILLARY BLOOD GLUCOSE (NO CHG), POC (06/15/2018 10:26 PM) + +---------+ + | Component | Value | Ref Range | + +---------+ + | BLOOD GLUCOSE, POC | 208 (H) | 70 - 99 mg/dL | + +---------+ + + + + | Specimen | Performing Laboratory | + + + | | [facility], POINT OF CARE TESTS [address] | | | [place] [address] | + + + CAPILLARY BLOOD GLUCOSE (NO CHG), POC (06/15/2018 6:52 PM) + +---------+ + | Component | Value | Ref Range | + +---------+ + | BLOOD GLUCOSE, POC | 264 (H) | 70 - 99 mg/dL | + +---------+ + + + + | Specimen | Performing Laboratory | + + + | | [facility] POINT [facility] CARE TESTS [address] | | | [place] [address] | + + + CAPILLARY BLOOD GLUCOSE (NO CHG), POC (06/15/2018 9:29 AM) + +---------+ + | Component | Value | Ref Range | + +---------+ + | BLOOD GLUCOSE, POC | 134 (H) | 70 - 99 mg/dL | + +---------+ + + + + | Specimen | Performing Laboratory | + + + | | [facility], POINT OF CARE TESTS [address] | | | [place] [address] | + + + CBC AND AUTO DIFF (06/15/2018 7:04 AM) + + + + | Component | Value | Ref Range | + + + + | WHITE CELL COUNT | 10.00 | 3.50 - 10.80 K/cu mm | + + + + | RED CELL COUNT | 3.10 (L) | 4.50 - 6.00 M/cu mm | + + + + | HEMOGLOBIN | 9.5 (L) | 13.5 - 17.5 g/dL | + + + + | HEMATOCRIT | 28.8 (L) | 41.0 - 53.0 % | + + + + | MCV | 92.9 | 80.0 - 100.0 fL | + + + + | MCHC | 33.0 | 32.0 - 36.0 g/dL | + + + + | RDW SD | 61.3 (H) | 35.1 - 46.3 fL | + + + + | PLATELET COUNT | 216 | 150 - 400 K/cu mm | + + + + | MPV | 9.4 (L) | 9.7 - 12.3 fL | + + + + | NRBC% | 0.0 | 0.0 - 0.3 % | + + + + | NRBC# | 0.00 | 0.00 - 0.02 K/cu mm | + + + + | NEUTROPHIL % | 66.7 | 50.0 - 70.0 % | + + + + | LYMPHOCYTE % | 21.4 | 18.0 - 42.0 % | + + + + | MONOCYTE % | 10.5 (H) | 3.5 - 9.0 % | + + + + | EOS % | 0.7 (L) | 1.0 - 3.0 % | + + + + | BASO % | 0.2 | 0.0 - 2.0 % | + + + + | IG% | 0.5Comment: Increased immature granulocytes | 0.0 - 1.0 % | | | (IG) define a left shift. Immature | | | | granulocytes (IG) are an automated count of | | | | metamyelocytes, myelocytes and | | | | promyelocytes. Bands are not included in | | | | the IG count. Bands are included in the | | | | neutrophil count. | | + + + + | NEUTROPHIL # | 6.67 | 1.80 - 7.70 K/cu mm | + + + + | LYMPHOCYTE # | 2.14 | 1.00 - 4.80 K/cu mm | + + + + | MONOCYTE # | 1.05 (H) | 0.10 - 0.90 K/cu mm | + + + + | EOS # | 0.07 | 0.00 - 0.50 K/cu mm | + + + + | BASO # | 0.02 | 0.00 - 0.10 K/cu mm | + + + + | IG# | 0.05 | 0.00 - 0.10 K/cu mm | + + + + + + + | Specimen | Performing Laboratory | + + + | Blood | [facility], CORE [address] | | | [place] [address] | + + + + + | Narrative | + + | New pediatric reference ranges for Lymphocyte % in effect April 09, 2018. New | | reference ranges for MCV, MCHC, PLT, IG% and IG# effective 03/05/2018 Increased | | immature granulocytes (IG) define a left shift. Immature granulocytes (IG) are an | | automated count of metamyelocytes, myelocytes and promyelocytes. Bands are not included | | in the IG count. Bands are included in the neutrophil count. | + + CBC, WITH DIFFERENTIAL (06/15/2018 7:04 AM) + + + | Specimen | Performing Laboratory | + + + | Blood | | + + + + + | Narrative | + + | The following orders were created for panel order CBC, WITH DIFFERENTIAL. | | Procedure | | Abnormality Status | | --------- | | ------ CBC AND AUTO | | DIFF[[id number]] Abnormal Final | | result Please view results for these tests on the | | individual orders. | + + BASIC METABOLIC SET (NA, K, CL, TCO2, BUN, CR, GLU, CA) (06/15/2018 7:04 AM) + + + + | Component | Value | Ref Range | + + + + | GLUCOSE, PLASMA | 118 (H) | 70 - 99 mg/dL | | (LAB) | | | + + + + | BUN, PLASMA (LAB) | 44 (H) | 6 - 20 mg/dL | + + + + | CREATININE PLASMA | 2.10 (H) | 0.70 - 1.30 mg/dL | | (LAB) | | | + + + + | EGFR - | 37 (L) | >60 mL/min | | PARAGUAYAN | | | + + + + | EGFR NON | 31 (L) | >60 mL/min | | -PARAGUAYAN | | | + + + + | SODIUM, PLASMA (LAB) | 135 (L) | 136 - 145 mmol/L | + + + + | POTASSIUM, PLASMA | 4.0 | 3.4 - 5.0 mmol/L | | (LAB) | | | + + + + | CHLORIDE, PLASMA | 97 | 97 - 108 mmol/L | | (LAB) | | | + + + + | TOTAL CO2, PLASMA | 29 | 21 - 32 mmol/L | | (LAB) | | | + + + + | CALCIUM, PLASMA | 8.2 (L) | 8.6 - 10.2 mg/dL | | (LAB) | | | + + + + | ANION GAP | 9 | 4 - 11 mmol/L | + + + + | POTASSIUM CMNT | No Hemo | | + + + + + + + | Specimen | Performing Laboratory | + + + | Blood | [facility], CORE [address] | | | [place] [address] | + + + + + | Narrative | + + | GFR is estimated using the MDRD equation recommended by the National Kidney Disease | | Education Program. Estimated GFR Interpretive Information: <60 mL/min/1.73 sq | | m Chronic Kidney Disease <15 mL/min/1.73 sq | | m Kidney Failure Estimated GFR greater that 60 mL/min/1.73 | | sq m is of limited clinical value. The MDRD equation is not valid in the following | | situations: - Patients under 18 years of age - Severe malnutrition or obesity - | | Vegetarian diet - Rapidly changing kidney function - Amputees, paraplegics, or other | | muscle-wasting diseses | + + EOSINOPHILS, URINE (SPOT) (06/15/2018 6:49 AM) + +-------+ + | Component | Value | Ref Range | + +-------+ + | URINE EOSINOPHILS | <1 | <1 % | + +-------+ + + + + | Specimen | Performing Laboratory | + + + | Urine | [facility], CORE [address] [place] [address] | | | [place] [address] | + + + UREA NITROGEN, URINE (06/15/2018 6:49 AM) + +--------+ + | Component | Value | Ref Range | + +--------+ + | UREA NITRO CONC UR | 743 | mg/dL | + +--------+ + | URINE INTERVAL | Random | | + +--------+ + | URINE VOLUME | Spot | | + +--------+ + + + + | Specimen | Performing Laboratory | + + + | Urine | [facility], CORE [address] | | | [place] [address] | + + + + + | Narrative | + + | Reference range based on 24 hour collection time. Patient results are calculated | | from actual collection time. | + + CREATININE, URINE (06/15/2018 6:49 AM) + +--------+ + | Component | Value | Ref Range | + +--------+ + | CREATININE CONC UR | 269.00 | mg/dL | + +--------+ + | URINE INTERVAL | Random | | + +--------+ + | URINE VOLUME | Spot | | + +--------+ + + + + | Specimen | Performing Laboratory | + + + | Urine | [facility], CORE [address] | | | [facility] [address] | + + + + + | Narrative | + + | Reference range based on 24 hour collection time. Patient results are calculated | | from actual collection time. | + + SODIUM TOTAL, URINE (06/15/2018 6:49 AM) + +--------+ + | Component | Value | Ref Range | + +--------+ + | SODIUM CONC URINE | 5 | mmol/L | + +--------+ + | URINE INTERVAL | Random | | + +--------+ + | URINE VOLUME | Spot | | + +--------+ + + + + | Specimen | Performing Laboratory | + + + | Urine | [facility], CORE [address] | | | [place] [address] | + + + + + | Narrative | + + | Reference range based on 24 hour collection time. Patient results are calculated | | from actual collection time. | + + CARDIOLOGY (06/15/2018)CAPILLARY BLOOD GLUCOSE (NO CHG), POC (06/14/2018 9:30 PM) + +---------+ + | Component | Value | Ref Range | + +---------+ + | BLOOD GLUCOSE, POC | 203 (H) | 70 - 99 mg/dL | + +---------+ + + + + | Specimen | Performing Laboratory | + + + | | [facility], POINT OF CARE TESTS [address] | | | [place] [address] | + + + BASIC METABOLIC SET (NA, K, CL, TCO2, BUN, CR, GLU, CA) (06/14/2018 6:00 PM) + + + + | Component | Value | Ref Range | + + + + | GLUCOSE, PLASMA | 192 (H) | 70 - 99 mg/dL | | (LAB) | | | + + + + | BUN, PLASMA (LAB) | 38 (H) | 6 - 20 mg/dL | + + + + | CREATININE PLASMA | 2.17 (H) | 0.70 - 1.30 mg/dL | | (LAB) | | | + + + + | EGFR - | 36 (L) | >60 mL/min | | PARAGUAYAN | | | + + + + | EGFR NON | 29 (L) | >60 mL/min | | -PARAGUAYAN | | | + + + + | SODIUM, PLASMA (LAB) | 135 (L) | 136 - 145 mmol/L | + + + + | POTASSIUM, PLASMA | 4.1 | 3.4 - 5.0 mmol/L | | (LAB) | | | + + + + | CHLORIDE, PLASMA | 97 | 97 - 108 mmol/L | | (LAB) | | | + + + + | TOTAL CO2, PLASMA | 34 (H) | 21 - 32 mmol/L | | (LAB) | | | + + + + | CALCIUM, PLASMA | 8.0 (L) | 8.6 - 10.2 mg/dL | | (LAB) | | | + + + + | ANION GAP | 4 | 4 - 11 mmol/L | + + + + | POTASSIUM CMNT | No Hemo | | + + + + + + + | Specimen | Performing Laboratory | + + + | Blood | [facility], CORE [address] | | | [place] [address] | + + + + + | Narrative | + + | Please draw vancomycin trough immediately prior to 18:00 dose on 06/14/18. Hold dose | | until Pharmacist confirms level is appropriate. Page [phone] or [phone] with | | questions. Thank you. GFR is estimated using the MDRD equation recommended by the | | National Kidney Disease Education Program. Estimated GFR Interpretive Information: | | <60 mL/min/1.73 sq m Chronic Kidney Disease <15 mL/min/1.73 | | sq m Kidney Failure Estimated GFR greater that 60 | | mL/min/1.73 sq m is of limited clinical value. The MDRD equation is not valid in the | | following situations: - Patients under 18 years of age - Severe malnutrition or | | obesity - Vegetarian diet - Rapidly changing kidney function - Amputees, paraplegics, | | or other muscle-wasting diseses | + + INR (06/14/2018 6:00 PM) + + + + | Component | Value | Ref Range | + + + + | INR | 1.44 (H) | 0.90 - 1.20 INR | + + + + + + + | Specimen | Performing Laboratory | + + + | Blood | [facility], [address]ORE [address] | | | [place] [address] | + + + + + | Narrative | + + | INR Therapeutic ranges for full anticoagulation: INR for Venous | | Thromboembolism (2.0 - 3.0) INR INR for most patients with | | mech. valves (2.5 - 3.5) INR | + + VANCOMYCIN, TROUGH (06/14/2018 6:00 PM) + +-------+ + | Component | Value | Ref Range | + +-------+ + | VANCOMYCIN, TROUGH | 12.9 | 10.0 - 20.0 ug/mL | + +-------+ + + + + | Specimen | Performing Laboratory | + + + | Blood | [facility], [address] | | | [place] [address] | + + + + + | Narrative | + + | Please draw vancomycin trough immediately prior to 18:00 dose on 06/14/18. Hold dose | | until Pharmacist confirms level is appropriate. Page [phone] or [phone] with | | questions. Thank you. | + + CAPILLARY BLOOD GLUCOSE (NO CHG), POC (06/14/2018 3:38 PM) + +---------+ + | Component | Value | Ref Range | + +---------+ + | BLOOD GLUCOSE, POC | 216 (H) | 70 - 99 mg/dL | + +---------+ + + + + | Specimen | Performing Laboratory | + + + | | [facility], POINT OF CARE TESTS [address] | | | [place] [address] | + + + CAPILLARY BLOOD GLUCOSE (NO CHG), POC (06/14/2018 9:52 AM) + +--------+ + | Component | Value | Ref Range | + +--------+ + | BLOOD GLUCOSE, POC | 59 (L) | 70 - 99 mg/dL | + +--------+ + + + + | Specimen | Performing Laboratory | + + + | | [facility], POINT OF CARE TESTS [address] | | | [place] [address] | + + + CBC (HEMOGRAM) ONLY (06/14/2018 5:24 AM) + + + + | Component | Value | Ref Range | + + + + | WHITE CELL COUNT | 12.05 (H) | 3.50 - 10.80 K/cu mm | + + + + | RED CELL COUNT | 3.23 (L) | 4.50 - 6.00 M/cu mm | + + + + | HEMOGLOBIN | 9.9 (L) | 13.5 - 17.5 g/dL | + + + + | HEMATOCRIT | 30.1 (L) | 41.0 - 53.0 % | + + + + | MCV | 93.2 | 80.0 - 100.0 fL | + + + + | MCHC | 32.9 | 32.0 - 36.0 g/dL | + + + + | RDW SD | 61.1 (H) | 35.1 - 46.3 fL | + + + + | PLATELET COUNT | 186 | 150 - 400 K/cu mm | + + + + | MPV | 9.4 (L) | 9.7 - 12.3 fL | + + + + | NRBC% | 0.0 | 0.0 - 0.3 % | + + + + | NRBC# | 0.00 | 0.00 - 0.02 K/cu mm | + + + + + + + | Specimen | Performing Laboratory | + + + | Blood | [facility], [address] | | | [place] [address] | + + + + + | Narrative | + + | New reference ranges for MCV, MCHC, PLT, IG% and IG# effective 03/05/2018 | + + CBC ONLY (06/14/2018 5:24 AM) + + + | Specimen | Performing Laboratory | + + + | Blood | | + + + + + | Narrative | + + | The following orders were created for panel order CBC ONLY. | | Procedure | | Abnormality Status | | --------- | | ------ CBC (HEMOGRAM) | | ONLY[[id number]] Abnormal Final | | result Please view results for these tests on the | | individual orders. | + + COMPLETE METABOLIC SET (NA,K,CL,CO2,BUN,CREAT,GLUC,CA,AST,ALT,BILI TOTAL,ALK PHOS,ALB,PROT TOTAL) (06/14/2018 5:24 AM) + + + + | Component | Value | Ref Range | + + + + | GLUCOSE, PLASMA | 81 | 70 - 99 mg/dL | | (LAB) | | | + + + + | BUN, PLASMA (LAB) | 23 (H) | 6 - 20 mg/dL | + + + + | CREATININE PLASMA | 2.08 (H) | 0.70 - 1.30 mg/dL | | (LAB) | | | + + + + | EGFR - | 37 (L) | >60 mL/min | | [facility] | | | + + + + | EGFR NON | 31 (L) | >60 mL/min | | -[facility]AN | | | + + + + | SODIUM, PLASMA (LAB) | 136 | 136 - 145 mmol/L | + + + + | POTASSIUM, PLASMA | 3.6 | 3.4 - 5.0 mmol/L | | (LAB) | | | + + + + | CHLORIDE, PLASMA | 98 | 97 - 108 mmol/L | | (LAB) | | | + + + + | TOTAL CO2, PLASMA | 34 (H) | 21 - 32 mmol/L | | (LAB) | | | + + + + | CALCIUM, PLASMA | 8.0 (L) | 8.6 - 10.2 mg/dL | | (LAB) | | | + + + + | CALCIUM(ALB | 9.5 | 8.6 - 10.2 mg/dL | | CORRECTED) | | | + + + + | BILIRUBIN TOTAL | 0.9 | 0.3 - 1.2 mg/dL | + + + + | TOTAL PROTEIN, | 6.0 (L) | 6.4 - 8.2 g/dL | | PLASMA (LAB) | | | + + + + | ALBUMIN, PLASMA | 2.1 (L) | 3.5 - 4.7 g/dL | | (LAB) | | | + + + + | ALK PHOS | 42 (L) | 56 - 119 U/L | + + + + | AST(SGOT) | 26 | <=41 U/L | + + + + | ALT (SGPT) | 29 | <=60 U/L | + + + + | ANION GAP | 4 | 4 - 11 mmol/L | + + + + | ANION GAP(ALB | 8 | 4 - 11 mmol/L | | CORRECTED) | | | + + + + | POTASSIUM CMNT | No Hemo | | + + + + | BILI T CMNT | No Hemo | | + + + + | AST CMNT | No Hemo | | + + + + + + + | Specimen | Performing Laboratory | + + + | Blood | [facility], [place] [address] [place] [address] | | | [place] [id number] | + + + + + | Narrative | + + | GFR is estimated using the MDRD equation recommended by the National Kidney Disease | | Education Program. Estimated GFR Interpretive Information: <60 mL/min/1.73 sq | | m Chronic Kidney Disease <15 mL/min/1.73 sq | | m Kidney Failure Estimated GFR greater that 60 mL/min/1.73 | | sq m is of limited clinical value. The MDRD equation is not valid in the following | | situations: - Patients under 18 years of age - Severe malnutrition or obesity - | | Vegetarian diet - Rapidly changing kidney function - Amputees, paraplegics, or other | | muscle-wasting diseses | + + CAPILLARY BLOOD GLUCOSE (NO CHG), POC (06/13/2018 9:36 PM) + +---------+ + | Component | Value | Ref Range | + +---------+ + | BLOOD GLUCOSE, POC | 162 (H) | 70 - 99 mg/dL | + +---------+ + + + + | Specimen | Performing Laboratory | + + + | | [facility], POINT OF CARE TESTS [address] | | | [place] [address] | + + + CAPILLARY BLOOD GLUCOSE (NO CHG), POC (06/13/2018 5:21 PM) + +---------+ + | Component | Value | Ref Range | + +---------+ + | BLOOD GLUCOSE, POC | 139 (H) | 70 - 99 mg/dL | + +---------+ + + + + | Specimen | Performing Laboratory | + + + | | [facility], POINT OF CARE TESTS [address] | | | [place] [address] | + + + CAPILLARY BLOOD GLUCOSE (NO CHG), POC (06/13/2018 1:32 PM) + +---------+ + | Component | Value | Ref Range | + +---------+ + | BLOOD GLUCOSE, POC | 130 (H) | 70 - 99 mg/dL | + +---------+ + + + + | Specimen | Performing Laboratory | + + + | | [facility], POINT OF CARE TESTS [address] | | | [place] [address] | + + + 12 LEAD ECG (06/13/2018 10:28 AM) + + + + | Component | Value | Ref Range | + + + + | VENTRICULAR RATE | 95 | bpm | + + + + | ATRIAL RATE | 96 | ms | + + + + | P-R INTERVAL | 211 | ms | + + + + | P AXIS | 58 | deg | + + + + | QRS DURATION | 149 | ms | + + + + | QT | 339 | ms | + + + + | QTCB | 428 | ms | + + + + | R AXIS | 168 | deg | + + + + | T AXIS | -70 | deg | + + + + | ECG IMPRESSION | Sinus rhythm | | + + + + | ECG IMPRESSION | Ventricular premature complex | | + + + + | ECG IMPRESSION | Borderline prolonged SC interval | | + + + + | ECG IMPRESSION | Right bundle branch block | | + + + + | ECG IMPRESSION | Inferior infarct, age indeterminate- | | | | ABNORMAL ECG - | | + + + + | ECG IMPRESSION | Electronically signed by: SHAI SILVA | | | | 06-13-2018 11:04:56 | | + + + + + + + | Specimen | Performing Laboratory | + + + | | [facility] [address] [place] [address] | | | [place] [address] | + + + CAPILLARY BLOOD GLUCOSE (NO CHG), POC (06/13/2018 8:17 AM) + +-------+ + | Component | Value | Ref Range | + +-------+ + | BLOOD GLUCOSE, POC | 86 | 70 - 99 mg/dL | + +-------+ + + + + | Specimen | Performing Laboratory | + + + | | [facility], POINT OF CARE TESTS [address] | | | [place] [address] | + + + CBC (HEMOGRAM) ONLY (06/13/2018 4:36 AM) + + + + | Component | Value | Ref Range | + + + + | WHITE CELL COUNT | 11.11 (H) | 3.50 - 10.80 K/cu mm | + + + + | RED CELL COUNT | 3.80 (L) | 4.50 - 6.00 M/cu mm | + + + + | HEMOGLOBIN | 11.7 (L) | 13.5 - 17.5 g/dL | + + + + | HEMATOCRIT | 35.2 (L) | 41.0 - 53.0 % | + + + + | MCV | 92.6 | 80.0 - 100.0 fL | + + + + | MCHC | 33.2 | 32.0 - 36.0 g/dL | + + + + | RDW SD | 62.4 (H) | 35.1 - 46.3 fL | + + + + | PLATELET COUNT | 136 (L) | 150 - 400 K/cu mm | + + + + | MPV | 9.9 | 9.7 - 12.3 fL | + + + + | NRBC% | 0.0 | 0.0 - 0.3 % | + + + + | NRBC# | 0.00 | 0.00 - 0.02 K/cu mm | + + + + + + + | Specimen | Performing Laboratory | + + + | Blood | [facility] [place] [address] | | | [place] [address] | + + + + + | Narrative | + + | New reference ranges for MCV, MCHC, PLT, IG% and IG# effective 03/05/2018 | + + CBC ONLY (06/13/2018 4:36 AM) + + + | Specimen | Performing Laboratory | + + + | Blood | | + + + + + | Narrative | + + | The following orders were created for panel order CBC ONLY. | | Procedure | | Abnormality Status | | --------- | | ------ CBC (HEMOGRAM) | | ONLY[[id number]] Abnormal Final | | result Please view results for these tests on the | | individual orders. | + + COMPLETE METABOLIC SET (NA,K,CL,CO2,BUN,CREAT,GLUC,CA,AST,ALT,BILI TOTAL,ALK PHOS,ALB,PROT TOTAL) (06/13/2018 4:36 AM) + + + + | Component | Value | Ref Range | + + + + | GLUCOSE, PLASMA | 94 | 70 - 99 mg/dL | | (LAB) | | | + + + + | BUN, PLASMA (LAB) | 27 (H) | 6 - 20 mg/dL | + + + + | CREATININE PLASMA | 1.66 (H) | 0.70 - 1.30 mg/dL | | (LAB) | | | + + + + | EGFR - | 48 (L) | >60 mL/min | | PARAGUAYAN | | | + + + + | EGFR NON | 40 (L) | >60 mL/min | | -PARAGUAYAN | | | + + + + | SODIUM, PLASMA (LAB) | 136 | 136 - 145 mmol/L | + + + + | POTASSIUM, PLASMA | 4.4 | 3.4 - 5.0 mmol/L | | (LAB) | | | + + + + | CHLORIDE, PLASMA | 103 | 97 - 108 mmol/L | | (LAB) | | | + + + + | TOTAL CO2, PLASMA | 25 | 21 - 32 mmol/L | | (LAB) | | | + + + + | CALCIUM, PLASMA | 8.2 (L) | 8.6 - 10.2 mg/dL | | (LAB) | | | + + + + | CALCIUM(ALB | 9.6 | 8.6 - 10.2 mg/dL | | CORRECTED) | | | + + + + | BILIRUBIN TOTAL | 1.1 | 0.3 - 1.2 mg/dL | + + + + | TOTAL PROTEIN, | 6.6 | 6.4 - 8.2 g/dL | | PLASMA (LAB) | | | + + + + | ALBUMIN, PLASMA | 2.3 (L) | 3.5 - 4.7 g/dL | | (LAB) | | | + + + + | ALK PHOS | 44 (L) | 56 - 119 U/L | + + + + | AST(SGOT) | 60 (H) | <=41 U/L | + + + + | ALT (SGPT) | 48 | <=60 U/L | + + + + | ANION GAP | 8 | 4 - 11 mmol/L | + + + + | ANION GAP(ALB | 12 (H) | 4 - 11 mmol/L | | CORRECTED) | | | + + + + | POTASSIUM CMNT | Sl Hemo | | + + + + | AST CMNT | Sl Hemo | | + + + + + + + | Specimen | Performing Laboratory | + + + | Blood | [facility], CORE [address] | | | [place] [address] | + + + + + | Narrative | + + | Sample hemolyzed. Results for K, Total Bili, Direct Bili, AST, LDH, or HDL may be | | inaccurate. Refer to comment under test result. GFR is estimated using the MDRD | | equation recommended by the National Kidney Disease Education Program. Estimated GFR | | Interpretive Information: <60 mL/min/1.73 sq m Chronic | | Kidney Disease <15 mL/min/1.73 sq m Kidney Failure | | Estimated GFR greater that 60 mL/min/1.73 sq m is of limited clinical value. The | | MDRD equation is not valid in the following situations: - Patients under 18 years of | | age - Severe malnutrition or obesity - Vegetarian diet - Rapidly changing kidney | | function - Amputees, paraplegics, or other muscle-wasting diseses | + + MAGNESIUM, PLASMA (06/12/2018 10:24 PM) + +-------+ + | Component | Value | Ref Range | + +-------+ + | MAGNESIUM,PLASMA | 1.8 | 1.6 - 2.6 mg/dL | + +-------+ + + + + | Specimen | Performing Laboratory | + + + | Blood | [facility], CORE [address] | | | [place] [address] | + + + + + | Narrative | + + | Reference range change effective 06/10/17. | + + COMPLETE METABOLIC SET (NA,K,CL,CO2,BUN,CREAT,GLUC,CA,AST,ALT,BILI TOTAL,ALK PHOS,ALB,PROT TOTAL) (06/12/2018 10:24 PM) + + + + | Component | Value | Ref Range | + + + + | GLUCOSE, PLASMA | 136 (H) | 70 - 99 mg/dL | | (LAB) | | | + + + + | BUN, PLASMA (LAB) | 28 (H) | 6 - 20 mg/dL | + + + + | CREATININE PLASMA | 1.55 (H) | 0.70 - 1.30 mg/dL | | (LAB) | | | + + + + | EGFR - | 52 (L) | >60 mL/min | | PARAGUAYAN | | | + + + + | EGFR NON | 43 (L) | >60 mL/min | | -PARAGUAYAN | | | + + + + | SODIUM, PLASMA (LAB) | 139 | 136 - 145 mmol/L | + + + + | POTASSIUM, PLASMA | 3.7 | 3.4 - 5.0 mmol/L | | (LAB) | | | + + + + | CHLORIDE, PLASMA | 100 | 97 - 108 mmol/L | | (LAB) | | | + + + + | TOTAL CO2, PLASMA | 33 (H) | 21 - 32 mmol/L | | (LAB) | | | + + + + | CALCIUM, PLASMA | 8.6 | 8.6 - 10.2 mg/dL | | (LAB) | | | + + + + | CALCIUM(ALB | 9.7 | 8.6 - 10.2 mg/dL | | CORRECTED) | | | + + + + | BILIRUBIN TOTAL | 1.0 | 0.3 - 1.2 mg/dL | + + + + | TOTAL PROTEIN, | 6.9 | 6.4 - 8.2 g/dL | | PLASMA (LAB) | | | + + + + | ALBUMIN, PLASMA | 2.6 (L) | 3.5 - 4.7 g/dL | | (LAB) | | | + + + + | ALK PHOS | 48 (L) | 56 - 119 U/L | + + + + | AST(SGOT) | 40 | <=41 U/L | + + + + | ALT (SGPT) | 52 | <=60 U/L | + + + + | ANION GAP | 6 | 4 - 11 mmol/L | + + + + | ANION GAP(ALB | 9 | 4 - 11 mmol/L | | CORRECTED) | | | + + + + | POTASSIUM CMNT | No Hemo | | + + + + | BILI T CMNT | No Hemo | | + + + + | AST CMNT | No Hemo | | + + + + + + + | Specimen | Performing Laboratory | + + + | Blood | [facility], CORE [address] | | | [place] [address] | + + + + + | Narrative | + + | GFR is estimated using the MDRD equation recommended by the National Kidney Disease | | Education Program. Estimated GFR Interpretive Information: <60 mL/min/1.73 sq | | m Chronic Kidney Disease <15 mL/min/1.73 sq | | m Kidney Failure Estimated GFR greater that 60 mL/min/1.73 | | sq m is of limited clinical value. The MDRD equation is not valid in the following | | situations: - Patients under 18 years of age - Severe malnutrition or obesity - | | Vegetarian diet - Rapidly changing kidney function - Amputees, paraplegics, or other | | muscle-wasting diseses | + + CONFIRMATORY ABO/RH (06/12/2018 10:23 PM) + + + + | Component | Value | Ref Range | + + + + | ABO Group | A | | + + + + | Rh Type | Positive | | + + + + + + + | Specimen | Performing Laboratory | + + + | Blood | [facility], [facility] [address] [place] [address] | | | [place] [address] | + + + ANTIBODY SCREEN (06/12/2018 10:23 PM) + + + + | Component | Value | Ref Range | + + + + | Antibody Screen | Negative | | + + + + + + + | Specimen | Performing Laboratory | + + + | Blood | [facility], [facility]ICINE [address] [place] [address] | | | [place] [address] | + + + CBC (HEMOGRAM) ONLY (06/12/2018 10:23 PM) + + + + | Component | Value | Ref Range | + + + + | WHITE CELL COUNT | 11.67 (H) | 3.50 - 10.80 K/cu mm | + + + + | RED CELL COUNT | 3.64 (L) | 4.50 - 6.00 M/cu mm | + + + + | HEMOGLOBIN | 11.4 (L) | 13.5 - 17.5 g/dL | + + + + | HEMATOCRIT | 34.2 (L) | 41.0 - 53.0 % | + + + + | MCV | 94.0 | 80.0 - 100.0 fL | + + + + | MCHC | 33.3 | 32.0 - 36.0 g/dL | + + + + | RDW SD | 63.3 (H) | 35.1 - 46.3 fL | + + + + | PLATELET COUNT | 216 | 150 - 400 K/cu mm | + + + + | MPV | 9.3 (L) | 9.7 - 12.3 fL | + + + + | NRBC% | 0.0 | 0.0 - 0.3 % | + + + + | NRBC# | 0.00 | 0.00 - 0.02 K/cu mm | + + + + + + + | Specimen | Performing Laboratory | + + + | Blood | [facility], CORE [address] | | | [place] [address] | + + + + + | Narrative | + + | New reference ranges for MCV, MCHC, PLT, IG% and IG# effective 03/05/2018 | + + ABO & RH TYPE (06/12/2018 10:23 PM) + + + + | Component | Value | Ref Range | + + + + | ABO Group | A | | + + + + | Rh Type | Positive | | + + + + + + + | Specimen | Performing Laboratory | + + + | Blood | [facility], [facility]SF[facility] MEDICINE [address] | | | [place] [address] | + + + CBC ONLY (06/12/2018 10:23 PM) + + + | Specimen | Performing Laboratory | + + + | Blood | | + + + + + | Narrative | + + | The following orders were created for panel order CBC ONLY. | | Procedure | | Abnormality Status | | --------- | | ------ CBC (HEMOGRAM) | | ONLY[[id number]] Abnormal Final | | result Please view results for these tests on the | | individual orders. | + + INR (06/12/2018 10:23 PM) + + + + | Component | Value | Ref Range | + + + + | INR | 1.42 (H) | 0.90 - 1.20 INR | + + + + + + + | Specimen | Performing Laboratory | + + + | Blood | [facility], CORE [address] | | | [place] [address] | + + + + + | Narrative | + + | INR Therapeutic ranges for full anticoagulation: INR for Venous | | Thromboembolism (2.0 - 3.0) INR INR for most patients with | | mech. valves (2.5 - 3.5) INR | + + PROCEDURE NOTE (06/12/2018 10:09 PM)CAPILLARY BLOOD GLUCOSE (NO CHG), POC (06/12/2018 9:41 PM) + +---------+ + | Component | Value | Ref Range | + +---------+ + | BLOOD GLUCOSE, POC | 120 (H) | 70 - 99 mg/dL | + +---------+ + + + + | Specimen | Performing Laboratory | + + + | | [facility], POINT OF CARE TESTS [address] | | | [place] [address] | + + + COMPLETE METABOLIC SET (NA,K,CL,CO2,BUN,CREAT,GLUC,CA,AST,ALT,BILI TOTAL,ALK PHOS,ALB,PROT TOTAL) (06/12/2018 4:27 PM) + + + + | Component | Value | Ref Range | + + + + | GLUCOSE, PLASMA | 127 (H) | 70 - 99 mg/dL | | (LAB) | | | + + + + | BUN, PLASMA (LAB) | 30 (H) | 6 - 20 mg/dL | + + + + | CREATININE PLASMA | 1.63 (H) | 0.70 - 1.30 mg/dL | | (LAB) | | | + + + + | EGFR - | 50 (L) | >60 mL/min | | PARAGUAYAN | | | + + + + | EGFR NON | 41 (L) | >60 mL/min | | -PARAGUAYAN | | | + + + + | SODIUM, PLASMA (LAB) | 138 | 136 - 145 mmol/L | + + + + | POTASSIUM, PLASMA | 3.6 | 3.4 - 5.0 mmol/L | | (LAB) | | | + + + + | CHLORIDE, PLASMA | 100 | 97 - 108 mmol/L | | (LAB) | | | + + + + | TOTAL CO2, PLASMA | 34 (H) | 21 - 32 mmol/L | | (LAB) | | | + + + + | CALCIUM, PLASMA | 8.6 | 8.6 - 10.2 mg/dL | | (LAB) | | | + + + + | CALCIUM(ALB | 9.8 | 8.6 - 10.2 mg/dL | | CORRECTED) | | | + + + + | BILIRUBIN TOTAL | 1.0 | 0.3 - 1.2 mg/dL | + + + + | TOTAL PROTEIN, | 7.0 | 6.4 - 8.2 g/dL | | PLASMA (LAB) | | | + + + + | ALBUMIN, PLASMA | 2.5 (L) | 3.5 - 4.7 g/dL | | (LAB) | | | + + + + | ALK PHOS | 46 (L) | 56 - 119 U/L | + + + + | AST(SGOT) | 46 (H) | <=41 U/L | + + + + | ALT (SGPT) | 57 | <=60 U/L | + + + + | ANION GAP | 4 | 4 - 11 mmol/L | + + + + | ANION GAP(ALB | 7 | 4 - 11 mmol/L | | CORRECTED) | | | + + + + | POTASSIUM CMNT | No Hemo | | + + + + | BILI T CMNT | No Hemo | | + + + + | AST CMNT | No Hemo | | + + + + + + + | Specimen | Performing Laboratory | + + + | Blood | [facility], CORE [address] | | | [place] [address] | + + + + + | Narrative | + + | GFR is estimated using the MDRD equation recommended by the National Kidney Disease | | Education Program. Estimated GFR Interpretive Information: <60 mL/min/1.73 sq | | m Chronic Kidney Disease <15 mL/min/1.73 sq | | m Kidney Failure Estimated GFR greater that 60 mL/min/1.73 | | sq m is of limited clinical value. The MDRD equation is not valid in the following | | situations: - Patients under 18 years of age - Severe malnutrition or obesity - | | Vegetarian diet - Rapidly changing kidney function - Amputees, paraplegics, or other | | muscle-wasting diseses | + + PHOSPHORUS, PLASMA (06/12/2018 4:27 PM) + +-------+ + | Component | Value | Ref Range | + +-------+ + | PHOSPHORUS, PLASMA | 3.7 | 2.4 - 4.7 mg/dL | | (LAB) | | | + +-------+ + + + + | Specimen | Performing Laboratory | + + + | Blood | [facility], CORE [address] | | | [place] [address] | + + + CAPILLARY BLOOD GLUCOSE (NO CHG), POC (06/12/2018 3:40 PM) + +---------+ + | Component | Value | Ref Range | + +---------+ + | BLOOD GLUCOSE, POC | 130 (H) | 70 - 99 mg/dL | + +---------+ + + + + | Specimen | Performing Laboratory | + + + | | [facility], POINT OF CARE TESTS 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 | | Postoperative Diagnosis: same Procedures Performed: 1. Right knee arthrotomy | | with drainage for infection and polyethylene exchange 2. Application TINO disposible | | negative pressure wound therapy dressing right knee [id number] Anesthesia: General | | endotracheal anesthesia. Implants: excahgned alisha triathalon poly size 15, 13mm | | EBL: 50 Complications: None Specimens: 6 cultures, 1 path Indication For | | Procedure: Solo Alves was transferred to [facility] for sepsis after previosuly having | | been treated with a right total knee. He ws medically unstable and transferred to | | the medical service. An apsirate was positive. I would recommend returning to | | the operating room for poly exchange and debridement. We discussed the procedure, | | alternatives, risks at length with the patient and family and answered all their | | questions to their satisfaction. A consent form was signed and leg marked. | | Procedure In Detail: The patient was identified in the preoperative holding area by | | name, date, medical record number, and was transported to the operating room and | | transferred to the operating table where general endotracheal anesthesia was | | induced without difficulty. We then prepped and draped his right lower extremity in | | the usual sterile fashion. At this time, a time-out procedure was undertaken during | | which he was identified and the consent form was reviewed as well as the site marking. | | It was verified that he had received his preoperative antibiotics as well as the | | placement of a pneumatic compression device in his right lower extremity, which was on | | and working. Everyone in the room was in agreement that the correct side, site, and | | procedure were to take place and the procedure began. After the placement of the | | tourniquet, his incisions were then marked out and we began with the typical medial | | parapatellar arthrotomy incision. We followed along the medial cortex of the patella. | | A skin incision was made with a 15 blade scalpel and dissection was carried down to | | the level of the knee capsule with electrocautery. An arthrotomy was made in the | | medial parapatellar knee. Grossly purlent tissue was encounteered. A standrad | | set of ortho biopsies were obtained. The arhtrotomy was extended such that a finger | | could be place about the knee to break up loculations in the suprapatellar pouch, | | medial and lateral gutters and notch of the knee. The femoral and tibial | | componenets of the toal kne were stable. synoviuim was excised as completely as | | possible. AN osteotome was used to remove the poly liner. The back of the knee | | was then debrided. The knee was lavaged with 6 liters of sterile saline. A | | betadine wash was performed. The knee was then flexed and a new alisha triathalon | | CR poly, size 5 with 13mm height was implnated into the tibial baseplate. IT was | | stable. The knee was much cleanere appearing at this point. The knee was lavaged | | with 10 l of sterile saline under gravity drainage. A drain was placed in the | | knee. The knee casule was closed with 0 vicryl suture, and skin closed with 2-0 | | Biosyn and 3-0 nylon. Due to the risk of postop hematoma and drainage a TINO | | disopsible negative pressure dressing was applied over the incision. This measured | | 10x30 cm. Sticky drapes were placed around the incision to protect the skin. | | Sticky drapes were applied over this. Suction was applied and held | | appropriately. Suction will be set postoperatively to 100 mm Hg. The vac should | | be removed in approximately 7 days. Sterile Webril was then wrapped, as well as a | | large Omid wrap. He was then awoken from anesthesia and transported back to the | | postanesthesia care unit. Postoperative Plan: The patient be full weightbearing | | on his right lower extremity He will follow up in approximately 2-3 weeks with | | Licha Luna for wound inspection in clinic. At that visit he should have xrays | | ap/lateral of the right knee. He can have his sutures removed. He will be on likely | | PICC line IV antibiotics. He can start physical therapy for knee motion at the | | two week postop visit. In accordance with medicare guidelines I was present for | | the critical portion of the procedure. Sandoval Hyde MD | | ADDENDUM: (06/17/2018): The date listed above is incorrect. The correct date | | of surgery was 06/12/2018. The remainder of the operative note is correct as it | | stands. Sandoval Hyde MD, MPH [place] [facility], Dept. of Orthopaedics | | [facility] [address] | | [place] [address] [email or web address] | + + CAPILLARY BLOOD GLUCOSE (NO CHG), POC (06/12/2018 2:42 PM) + +---------+ + | Component | Value | Ref Range | + +---------+ + | BLOOD GLUCOSE, POC | 134 (H) | 70 - 99 mg/dL | + +---------+ + + + + | Specimen | Performing Laboratory | + + + | | [facility], POINT OF CARE TESTS [address] | | | [place] [address] | + + + CAPILLARY BLOOD GLUCOSE (NO CHG), POC (06/12/2018 2:08 PM) + +--------+ + | Component | Value | Ref Range | + +--------+ + | BLOOD GLUCOSE, POC | 68 (L) | 70 - 99 mg/dL | + +--------+ + + + + | Specimen | Performing Laboratory | + + + | | [facility], POINT OF CARE TESTS [address] | | | [place] [address] | + + + SURGICAL PATHOLOGY (06/12/2018 1:53 PM) + + + + | Component | Value | Ref Range | + + + + | Clinical History | RIGHT KNEE PROSTHETIC JOINT INFECTION | | + + + + | Final Pathologic | A. Soft tissue, right knee, biopsy: | | | Diagnosis | Fibrous soft tissue and skeletal muscle, | | | | negative for significant acute inflammation | | | | B. Knee, infected right total knee | | | | polyethylene: Medical hardware (gross | | | | only) Case seen by:Christina Singletary MD | | | | | | | | | | | | Surgical Pathology FellowIsaac Witt MD, | | | | PhD | | | | | | | | Pathologist My electronic signature | | | | indicates that I have personally reviewed | | | | all diagnostic slides, the gross and/or | | | | microscopic portion of this report and | | | | formulated the final diagnosis. | | + + + + | Gross Description | Received are 2 specimens fresh in | | | | containers labeled with the patient's name | | | | (initials GR) and medical record number | | | | [id number]. A. Knee, right knee r/o | | | | infection: Received labeled "right knee | | | | rule out infection | | | | | | | | 1" is a 2.1 x 0.9 x 0.5 cm oh | | | | | | | | white soft tissue fragment. Specimen is | | | | submitted entirely in A1. B. Knee, infected | | | | right total knee polyethylene: Received | | | | labeled "infected right total knee | | | | polyethylene | | | | | | | | 2 is a plastic white orthopedic medical | | | | device (7.5 x 5.0 x 1.9 cm) serial #[id number] | | | | | | | | G | | | | | | | | 513. There is an associated 5.5 cm bent | | | | metal pin. Submitted for gross diagnosis | | | | only. () | | + + + + | ANCILLARY | Analyte specific reagents are used in many | | | INFORMATION | laboratory tests necessary for standard | | | | medical care. This test was developed and | | | | its performance characteristics determined | | | | by [facility] [employer]. It has not been | | | | cleared or approved by the US Food and Drug | | | | Administration (FDA). FDA does not | | | | require this test to go through premarket | | | | FDA review. This test is used for clinical | | | | purposes. It should not be regarded as | | | | investigational or for research. This | | | | laboratory is certified under the Clinical | | | | Laboratory Improvement Amendments (CLIA) as | | | | qualified to perform high complexity | | | | clinical laboratory testing. | | + + + + + + + | Specimen | Performing Laboratory | + + + | Tissue - Knee | [facility] DEPARTMENT OF PATHOLOGY [address] | | | [place] [address] | + + + CAPILLARY BLOOD GLUCOSE (NO CHG), POC (06/12/2018 10:53 AM) + +-------+ + | Component | Value | Ref Range | + +-------+ + | BLOOD GLUCOSE, POC | 91 | 70 - 99 mg/dL | + +-------+ + + + + | Specimen | Performing Laboratory | + + + | | [facility] [address] | | | [place] [address] | + + + CAPILLARY BLOOD GLUCOSE (NO CHG), POC (06/12/2018 9:24 AM) + +-------+ + | Component | Value | Ref Range | + +-------+ + | BLOOD GLUCOSE, POC | 85 | 70 - 99 mg/dL | + +-------+ + + + + | Specimen | Performing Laboratory | + + + | | [facility], POINT OF CARE TESTS [address] | | | [place] [address] | + + + CAPILLARY BLOOD GLUCOSE (NO CHG), POC (06/12/2018 9:02 AM) + +--------+ + | Component | Value | Ref Range | + +--------+ + | BLOOD GLUCOSE, POC | 61 (L) | 70 - 99 mg/dL | + +--------+ + + + + | Specimen | Performing Laboratory | + + + | | [facility], POINT OF CARE TESTS [address] | | | [place] [address] | + + + CARDIOLOGY (06/12/2018)X-RAY KNEE 2 VIEWS RIGHT (06/11/2018 6:58 PM) + + + | Specimen | Performing Laboratory | + + + | | [facility] RADIOLOGY VOICE RECOGNITION 2 | + + + + + | Narrative | + + | EXAM: KNEE 2 VIEWS RIGHT HISTORY: knee pain. History of gout. Total knee | | arthroplasty in 2012. 2 weeks of knee pain. Concern for septic prosthetic knee with | | arthrocentesis at outside hospital today demonstrating fluid white blood cell count | | 78,000 with 95% neutrophils; no crystals. COMPARISON: None available. FINDINGS: | | Total knee arthroplasty is noted. 1.5 mm of lucency is seen along the anterior | | aspect of the femoral component. No lucency at the tibial component is identified. | | Heterogeneous lytic and sclerotic appearance of the patella with calcification of the | | quadriceps and patellar tendons. No acute fracture identified. Kd-Stieda lesion | | noted. Mild osteopenia of the femur and patella adjacent to the arthroplasties. Moderate | | suprapatellar joint effusion. Calcified atherosclerotic disease. Moderate soft tissue | | swelling. IMPRESSION: Moderate suprapatellar joint effusion, representing known | | septic effusion given recent aspiration. Discussed with Dr. Valle at time of dictation. | | Lytic and sclerotic appearance to the patella. Comparison with prior radiographs | | would be helpful to determine chronicity if there is concern for osteomyelitis; | | radiograph is insensitive for acute osteomyelitis. Moderate soft tissue swelling. | | I have personally reviewed the images and, if necessary, edited the report. I agree | | with the report as now presented. Final signature: Riky Lewis MD 06/11/2018 | | 8:30 PM Preliminary: Riky Lewis MD Dictation initiated: Riky Lewis | | 06/11/2018 8:14 PM | + + + + | Procedure Note [...] MD 06/11/2018 8:14 PM | + + CBC AND AUTO DIFF (06/11/2018 6:12 PM) + + + + | Component | Value | Ref Range | + + + + | WHITE CELL COUNT | 9.95 | 3.50 - 10.80 K/cu mm | + + + + | RED CELL COUNT | 3.44 (L) | 4.50 - 6.00 M/cu mm | + + + + | HEMOGLOBIN | 10.8 (L) | 13.5 - 17.5 g/dL | + + + + | HEMATOCRIT | 31.7 (L) | 41.0 - 53.0 % | + + + + | MCV | 92.2 | 80.0 - 100.0 fL | + + + + | MCHC | 34.1 | 32.0 - 36.0 g/dL | + + + + | RDW SD | 62.1 (H) | 35.1 - 46.3 fL | + + + + | PLATELET COUNT | 188 | 150 - 400 K/cu mm | + + + + | MPV | 9.3 (L) | 9.7 - 12.3 fL | + + + + | NRBC% | 0.2 | 0.0 - 0.3 % | + + + + | NRBC# | 0.02 | 0.00 - 0.02 K/cu mm | + + + + | NEUTROPHIL % | 65.9 | 50.0 - 70.0 % | + + + + | LYMPHOCYTE % | 21.3 | 18.0 - 42.0 % | + + + + | MONOCYTE % | 11.4 (H) | 3.5 - 9.0 % | + + + + | EOS % | 0.3 (L) | 1.0 - 3.0 % | + + + + | BASO % | 0.3 | 0.0 - 2.0 % | + + + + | IG% | 0.8Comment: Increased immature granulocytes | 0.0 - 1.0 % | | | (IG) define a left shift. Immature | | | | granulocytes (IG) are an automated count of | | | | metamyelocytes, myelocytes and | | | | promyelocytes. Bands are not included in | | | | the IG count. Bands are included in the | | | | neutrophil count. | | + + + + | NEUTROPHIL # | 6.56 | 1.80 - 7.70 K/cu mm | + + + + | LYMPHOCYTE # | 2.12 | 1.00 - 4.80 K/cu mm | + + + + | MONOCYTE # | 1.13 (H) | 0.10 - 0.90 K/cu mm | + + + + | EOS # | 0.03 | 0.00 - 0.50 K/cu mm | + + + + | BASO # | 0.03 | 0.00 - 0.10 K/cu mm | + + + + | IG# | 0.08 | 0.00 - 0.10 K/cu mm | + + + + + + + | Specimen | Performing Laboratory | + + + | Blood | [facility], CORE [address] | | | [place] [address] | + + + + + | Narrative | + + | New pediatric reference ranges for Lymphocyte % in effect April 09, 2018. New | | reference ranges for MCV, MCHC, PLT, IG% and IG# effective 03/05/2018 Increased | | immature granulocytes (IG) define a left shift. Immature granulocytes (IG) are an | | automated count of metamyelocytes, myelocytes and promyelocytes. Bands are not included | | in the IG count. Bands are included in the neutrophil count. | + + RAINBOW HOLD TUBE - RED TOP (06/11/2018 6:12 PM) + + + | Specimen | Performing Laboratory | + + + | Blood | [facility], CORE [address] | | | [place] [address] | + + + BLOOD BANK HOLD TUBE - DON T PROCESS (06/11/2018 6:12 PM) + + + + | Component | Value | Ref Range | + + + + | SPECIMEN COLLECTED, | Sample received with adeq label/volume to | | | HELD | process | | + + + + + + + | Specimen | Performing Laboratory | + + + | Blood | [facility], TRANSFUSION MEDICINE [address] | | | [place] [address] | + + + RAINBOW HOLD TUBE - BLUE TOP (06/11/2018 6:12 PM) + + + | Specimen | Performing Laboratory | + + + | Blood | [facility], CORE [address] | | | [place] [address] | + + + COMPLETE METABOLIC SET (NA,K,CL,CO2,BUN,CREAT,GLUC,CA,AST,ALT,BILI TOTAL,ALK PHOS,ALB,PROT TOTAL) (06/11/2018 6:12 PM) + + + + | Component | Value | Ref Range | + + + + | GLUCOSE, PLASMA | 199 (H) | 70 - 99 mg/dL | | (LAB) | | | + + + + | BUN, PLASMA (LAB) | 37 (H) | 6 - 20 mg/dL | + + + + | CREATININE PLASMA | 2.01 (H) | 0.70 - 1.30 mg/dL | | (LAB) | | | + + + + | EGFR - | 39 (L) | >60 mL/min | | PARAGUAYAN | | | + + + + | EGFR NON | 32 (L) | >60 mL/min | | -PARAGUAYAN | | | + + + + | SODIUM, PLASMA (LAB) | 135 (L) | 136 - 145 mmol/L | + + + + | POTASSIUM, PLASMA | 3.8 | 3.4 - 5.0 mmol/L | | (LAB) | | | + + + + | CHLORIDE, PLASMA | 99 | 97 - 108 mmol/L | | (LAB) | | | + + + + | TOTAL CO2, PLASMA | 31 | 21 - 32 mmol/L | | (LAB) | | | + + + + | CALCIUM, PLASMA | 8.5 (L) | 8.6 - 10.2 mg/dL | | (LAB) | | | + + + + | CALCIUM(ALB | 9.5 | 8.6 - 10.2 mg/dL | | CORRECTED) | | | + + + + | BILIRUBIN TOTAL | 0.7 | 0.3 - 1.2 mg/dL | + + + + | TOTAL PROTEIN, | 7.3 | 6.4 - 8.2 g/dL | | PLASMA (LAB) | | | + + + + | ALBUMIN, PLASMA | 2.8 (L) | 3.5 - 4.7 g/dL | | (LAB) | | | + + + + | ALK PHOS | 51 (L) | 56 - 119 U/L | + + + + | AST(SGOT) | 49 (H) | <=41 U/L | + + + + | ALT (SGPT) | 65 (H) | <=60 U/L | + + + + | ANION GAP | 5 | 4 - 11 mmol/L | + + + + | ANION GAP(ALB | 8 | 4 - 11 mmol/L | | CORRECTED) | | | + + + + | POTASSIUM CMNT | No Hemo | | + + + + | BILI T CMNT | No Hemo | | + + + + | AST CMNT | No Hemo | | + + + + + + + | Specimen | Performing Laboratory | + + + | Blood | [facility], CORE [address] [place] [address] | | | [place] [address] | + + + + + | Narrative | + + | GFR is estimated using the MDRD equation recommended by the National Kidney Disease | | Education Program. Estimated GFR Interpretive Information: <60 mL/min/1.73 sq | | m Chronic Kidney Disease <15 mL/min/1.73 sq | | m Kidney Failure Estimated GFR greater that 60 mL/min/1.73 | | sq m is of limited clinical value. The MDRD equation is not valid in the following | | situations: - Patients under 18 years of age - Severe malnutrition or obesity - | | Vegetarian diet - Rapidly changing kidney function - Amputees, paraplegics, or other | | muscle-wasting diseses | + + CBC, WITH DIFFERENTIAL (06/11/2018 6:12 PM) + + + | Specimen | Performing Laboratory | + + + | Blood | | + + + + + | Narrative | + + | The following orders were created for panel order CBC, WITH DIFFERENTIAL. | | Procedure | | Abnormality Status | | --------- | | ------ CBC AND AUTO | | DIFF[[id number]] Abnormal Final | | result Please view results for these tests on the | | individual orders. | + + APTT (ACT. PART. THROMBO TIME) (06/11/2018 6:12 PM) + + + + | Component | Value | Ref Range | + + + + | APTT | 36.5 (H) | 26.0 - 36.0 seconds | + + + + + + + | Specimen | Performing Laboratory | + + + | Blood | [facility], CORE [address] | | | [place] [address] | + + + + + | Narrative | + + | APTT values for monitoring heparin therapy may be affected by specimens | | processed >1 hour after collection. APTT Therapeutic | | Range: (75 - 120) sec Heparin levels of | | 0.35 - 0.7 U/mL | + + INR (06/11/2018 6:12 PM) + + + + | Component | Value | Ref Range | + + + + | INR | 1.31 (H) | 0.90 - 1.20 INR | + + + + + + + | Specimen | Performing Laboratory | + + + | Blood | [facility], CORE [address] | | | [place] [address] | + + + + + | Narrative | + + | INR Therapeutic ranges for full anticoagulation: INR for Venous | | Thromboembolism (2.0 - 3.0) INR INR for most patients with | | mech. valves (2.5 - 3.5) INR | + + C-REACTIVE PROTEIN (06/11/2018 6:12 PM) + + + + | Component | Value | Ref Range | + + + + | C-REACTIVE PROTEIN | 143.0 (H) | <10.0 mg/L | + + + + + + + | Specimen | Performing Laboratory | + + + | Blood | [facility], CORE [address] | | | [place] [address] | + + + + + | Narrative | + + | New method, new reference range and new reporting units as of 03/30/2014. | + + SEDIMENTATION RATE (06/11/2018 6:12 PM) + +--------+ + | Component | Value | Ref Range | + +--------+ + | SEDIMENTATION RATE | 87 (H) | 0 - 20 mm/hr | + +--------+ + + + + | Specimen | Performing Laboratory | + + + | Blood | [facility], CORE [address] | | | [place] [address] | + + + + + | Narrative | + + | Conditions such as cold agglutinins, anemia, hemolysis, icterus or lipemia may affect | | sedimentation rate. | + + ED INFORMATION EXCHANGE (06/11/2018 6:04 PM) + + + | Specimen | Performing Laboratory | + + + | | [employer] [address] [place] [address] | + + + + + | Narrative | + + | [id number] This patient has registered at the [facility] and | | [facility] Emergency Department For more information visit: | | [email or web address] Security | | Events No recent Security Events currently on file ED Care Guidelines There are | | currently no ED Care Guidelines in DANIEL for this patient. Please check your facility's | | medical records system. Recent Emergency Department Visit Summary Admit Date | | Facility City State Type Major Type Diagnoses or Chief Complaint Jun 11, 2018 [place] | | [facility] [place] Emergency Emergency 10,800. REF | | Recent Inpatient Visit Summary No recorded inpatient visits. E.D. Visit | | Count (12 mo.) Facility Visits [facility] 1 Total 1 | | Note: Visits indicate total known visits. PDMP Report Rx Details (6 Mo.) Fill | | Date Drug Description Qty. Prescriber CS MED 2018-04-28 ACETAMINOPHEN-COD #3 TABLET 60 | | GILMA CULVER MD 3 9 2018-03-02 ACETAMINOPHEN-COD #3 TABLET 60 LOLI STEVENS MD 3 | | 9 2018-01-27 ACETAMINOPHEN-COD #3 TABLET 60 LOLI STEVENS MD 3 9 Rx Summary (12 | | Mo.) Metric Count CS II-V Rx 7 CS-II Rx 0 Quantity Dispensed 420 Unique | | Prescribers 2 Unique Pharmacies 1 Benzos 0 Opioids 7 Long Acting Opioids 0 | | The above information is provided for the sole purpose of patient treatment. Use of | | this information beyond the terms of Data Sharing Memorandum of Understanding and | | License Agreement is prohibited. In certain cases not all visits may be represented. | | Consult the aforementioned facilities for additional information. 2018 [employer] | | [employer] - [place], [place] - [email or web address] | + + + + | Procedure Note | + + | Service Account, Rtf Results Inbound - 06/11/2018 6:06 PM PDT Formatting of this | | note may be different from the original.[id number] patient has | | registered at the [facility] Emergency Department For more | | information visit: | | [email or web address] Security | | EventsNo recent Security Events currently on fileED Care GuidelinesThere are currently | | no ED Care Guidelines in DANIEL for this patient. Please check your facility's medical | | records system.Recent Emergency Department Visit SummaryAdmit Date Facility [facility] State | | Type Major Type Diagnoses or Chief Complaint Jun 11, 2018 [facility] | | [facility] [place] Emergency Emergency 10,800. REF Recent Inpatient Visit | | SummaryNo recorded inpatient visits. E.D. Visit Count (12 mo.)Facility Visits [place] | | [facility] 1 Total 1 Note: Visits indicate total known visits. PDMP | | ReportRx Details (6 Mo.)Fill Date Drug Description Qty. Prescriber CS MED 2018-04-28 | | ACETAMINOPHEN-COD #3 TABLET 60 GILMA CULVER MD 3 9 2018-03-02 ACETAMINOPHEN-COD #3 | [...] | | aforementioned facilities for additional information. 2018 [employer] | | [employer] - [place], [place] - [email or web address] | |Facility Visits | |[facility] 1 | |Total 1 | |Note: Visits indicate total known visits. | | | |PDMP Report | |Rx Details (6 Mo.) | |Fill Date Drug Description Qty. Prescriber CS MED | |2018-04-28 ACETAMINOPHEN-COD #3 TABLET 60 GILMA CULVER MD 3 9 | |2018-03-02 ACETAMINOPHEN-COD #3 [...] the aforementioned facilities for additional information. | |2018 [employer] - [place], [place] - [email or web address] | + + in this encounter Visit Diagnoses Not on filein this encounter Admitting Diagnoses + + | Diagnosis | + + | Pyogenic arthritis of right knee joint, due to unspecified organism (HCC) | + + | RIGHT KNEE PROSTHETIC JOINT INFECTION | + + Administered Medications + +--------+ + +------+------+ | Medication Order | MAR | Action | Dose | Rate | Site | | | Action | Date | | | | + +--------+ + +------+------+ | acetaminophen-codeine (TYLENOL | Given | | 1 tablet | | | | #3) 300-30 mg 1 tablet 1 tablet, | | 8 15:57 | | | | | oral, EVERY 6 HOURS NEEDED, | | PDT | | | | | Starting 06/13/18 at 1822, | | | | | | | Until Discontinued, moderate pain | | | | | | + +--------+ + +------+------+ +-------+ + +---+---+ | Given | | 1 tablet | | | | | 8 22:06 | | | | | | PDT | | | | +-------+ + +---+---+ | Given | | 1 tablet | | | | | 8 03:56 | | | | | | PDT | | | | +-------+ + +---+---+ +---+---+ | | | +---+---+ + +-------+ +--------+---+---+ | allopurinol (ZYLOPRIM) tablet | Given | | 300 mg | | | | 300 mg 300 mg, oral, DAILY, | | 8 09:53 | | | | | First dose on 06/14/18 at | | PDT | | | | | 1000, Until Discontinued | | | | | | + +-------+ +--------+---+---+ +-------+ +--------+---+---+ | Given | | 300 mg | | | | | 8 09:46 | | | | | | PDT | | | | +-------+ +--------+---+---+ | Given | | 300 mg | | | | | 8 09:59 | | | | | | PDT | | | | +-------+ +--------+---+---+ +---+---+ | | | +---+---+ + +-------+ +---------+---+---+ | carvedilol (COREG) tablet 12.5 | Given | | 12.5 mg | | | | mg 12.5 mg, oral, TWICE DAILY, | | 8 09:47 | | | | | First dose on Fri06/12/18 at | | PDT | | | | | 2145, Until Discontinued | | | | | | + +-------+ +---------+---+---+ +-------+ +---------+---+---+ | Given | | 12.5 mg | | | | | 8 21:37 | | | | | | PDT | | | | +-------+ +---------+---+---+ | Given | | 12.5 mg | | | | | 8 10:02 | | | | | | PDT | | | | +-------+ +---------+---+---+ +---+---+ | | | +---+---+ + +---------+ +-----+---+---+ | ceFAZolin IV 2 gram in dextrose | New Bag | | 2 g | | | | (RTU) 2 g, intravenous, EVERY 8 | | 8 23:31 | | | | | HOURS, First dose on Fri06/17/18 | | PDT | | | | | at 0000, Until Discontinued | | | | | | + +---------+ +-----+---+---+ +---------+ +-----+---+---+ | New Bag | | 2 g | | | | | 8 08:04 | | | | | | PDT | | | | +---------+ +-----+---+---+ +---+---+ | | | +---+---+ + +-------+ +--------+---+---+ | cholecalciferol (Vitamin D3) | Given | | 1,000 | | | | (VITAMIN D-3) tablet 1,000 Units | | 8 09:53 | Units | | | | 1,000 Units, oral, DAILY, First | | PDT | | | | | dose on 06/13/18 at 0900, | | | | | | | Until Discontinued | | | | | | + +-------+ +--------+---+---+ +-------+ +--------+---+---+ | Given | | 1,000 | | | | | 8 09:47 | Units | | | | | PDT | | | | +-------+ +--------+---+---+ | Given | | 1,000 | | | | | 8 09:59 | Units | | | | | PDT | | | | +-------+ +--------+---+---+ + +---+ | | | + +---+ | dextrose 50 % in water IV 25 mL | | | 25 mL, intravenous, NEEDED, | | | Starting Zandra 06/11/18 at 2306, | | | Until Discontinued, CBG less than | | | 70 mg/dL if patient unable to | | | take PO, per Adult Hypoglycemia | | | Protocol | | + +---+ | | | + +---+ + +-------+ +---------+---+---+ | fluticasone (FLONASE) 50 | Given | | 1 spray | | | | mcg/actuation nasal spray 1 spray | | 8 18:32 | | | | | 1 spray, both nostrils, TWICE | | PDT | | | | | DAILY NEEDED, Starting Sat | | | | | | | 06/13/18 at 1821, Until | | | | | | | Discontinued, allergy symptoms | | | | | | + +-------+ +---------+---+---+ +---+---+ | | | +---+---+ + +-------+ +--------+---+---+ | folic acid (FOLVITE) tablet 0.4 | Given | | 0.4 mg | | | | mg 0.4 mg (400 mcg), oral, | | 8 09:53 | | | | | DAILY, First dose on 06/13/18 | | PDT | | | | | at 0900, Until Discontinued | | | | | | + +-------+ +--------+---+---+ +-------+ +--------+---+---+ | Given | | 0.4 mg | | | | | 8 09:47 | | | | | | PDT | | | | +-------+ +--------+---+---+ | Given | | 0.4 mg | | | | | 8 09:59 | | | | | | PDT | | | | +-------+ +--------+---+---+ + +---+ | | | + +---+ | glucagon (GLUCAGEN) injection 1 | | | mg 1 mg, intramuscular, | | | NEEDED, Starting [facility] 06/11/18 at | | | 2306, Until Discontinued, CBG | | | less than 70 mg/dL per Adult | | | Hypoglycemia Protocol | | + +---+ | | | + +---+ | glucose chewable tablet 16 g | | | 16 g, oral, NEEDED, Starting | | | Zandra 06/11/18 at 2306, Until | | | Discontinued, CBG less than 70 | | | mg/dL per Adult Hypoglycemia | | | Protocol | | + +---+ | | | + +---+ + +-------+ +--------+---+---------+ | heparin, porcine (PF) injection | Given | | 5,000 | | Abdomen | | 5,000 Units 5,000 Units, | | 8 15:57 | Units | | | | subcutaneous, EVERY 8 HOURS, | | PDT | | | | | First dose on 06/13/18 at | | | | | | | 1400, Until Discontinued | | | | | | + +-------+ +--------+---+---------+ +-------+ +--------+---+---------+ | Given | | 5,000 | | Abdomen | | | 8 22:06 | Units | | | | | PDT | | | | +-------+ +--------+---+---------+ | Given | | 5,000 | | Abdomen | | | 8 05:33 | Units | | | | | PDT | | | | +-------+ +--------+---+---------+ +---+---+ | | | +---+---+ + +-------+ +---------+---+ + | insulin lispro (HUMALOG) | Given | | 2 Units | | Left Arm | | injection subcutaneous, WITH | | 8 22:32 | | | | | MEALS AND BEDTIME, First dose on | | PDT | | | | | 06/12/18 at 0800, Until | | | | | | | Discontinued | | | | | | + +-------+ +---------+---+ + +-------+ +---------+---+--------+ | Given | | 6 Units | | Right | | | 8 18:38 | | | Arm | | | PDT | | | | +-------+ +---------+---+--------+ | Given | | 2 Units | | Right | | | 8 23:23 | | | Arm | | | PDT | | | | +-------+ +---------+---+--------+ +---+---+ | | | +---+---+ + +-------+ + +---+---+ | multivitamin (THERA VITAMIN) 1 | Given | | 1 tablet | | | | tablet 1 tablet, oral, DAILY, | | 8 09:49 | | | | | First dose on 06/13/18 at | | PDT | | | | | 0900, Until Discontinued | | | | | | + +-------+ + +---+---+ +-------+ + +---+---+ | Given | | 1 tablet | | | | | 8 09:47 | | | | | | PDT | | | | +-------+ + +---+---+ | Given | | 1 tablet | | | | | 8 09:59 | | | | | | PDT | | | | +-------+ + +---+---+ +---+---+ | | | +---+---+ + +-------+ +------+---+---+ | polyethylene glycol (MIRALAX) | Given | | 17 g | | | | packet 17 g 17 g, oral, THREE | | 8 23:41 | | | | | TIMES DAILY NEEDED, Starting | | PDT | | | | | Fri06/12/18 at 2131, Until | | | | | | | Discontinued, 1st line - for no | | | | | | | BM for 2 days | | | | | | + +-------+ +------+---+---+ +---+---+ | | | +---+---+ + +-------+ + +---+---+ | senna-docusate (SENOKOT S) | Given | | 1 tablet | | | | 8.6-50 mg 1 tablet 1 tablet, | | 8 09:47 | | | | | oral, TWICE DAILY, First dose on | | PDT | | | | | Fri06/12/18 at 2145, Until | | | | | | | Discontinued | | | | | | + +-------+ + +---+---+ +-------+ + +---+---+ | Given | | 1 tablet | | | | | 8 21:37 | | | | | | PDT | | | | +-------+ + +---+---+ | Given | | 1 tablet | | | | | 8 09:59 | | | | | | PDT | | | | +-------+ + +---+---+ +---+---+ | | | +---+---+ + +-------+ +-------+---+---+ | torsemide (DEMADEX) tablet 20 | Given | | 20 mg | | | | mg 20 mg, oral, TWICE DAILY | | 8 17:36 | | | | | (DIURETIC), First dose on Fri | | PDT | | | | | 06/16/18 at 1700, Until | | | | | | | Discontinued | | | | | | + +-------+ +-------+---+---+ +-------+ +-------+---+---+ | Given | | 20 mg | | | | | 8 08:04 | | | | | | PDT | | | | +-------+ +-------+---+---+ +---+---+ | | | +---+---+ + +-------+ +--------+---+---+ | warfarin (COUMADIN) tablet 2.5 | Given | | 2.5 mg | | | | mg 2.5 mg, oral, EVERY EVENING, | | 8 21:37 | | | | | First dose on Fri06/16/18 at | | PDT | | | | | 2100, Until Discontinued | | | | | | + +-------+ +--------+---+---+ +---+---+ | | | +---+---+ in this encounter
--- OUTSIDE RECORDS SUMMARY | ~2018-06-17 | XMS | Encounter Summary ---
Demographics + + + | Address | [address] | | | [place] [address] | + + + | Home Phone | | + + + | Preferred Language | Unknown | + + + | Marital Status | | + + + | Caodaism Affiliation | 1077 | + + + | Race | Unknown | + + + | Ethnic Group | Unknown | + + + Author + + + | Author | [facility] [employer] | + + + | Organization | [facility] | + + + | Address | Unknown | + + + | Phone | Unavailable | + + + Support + + +---------+ + | Name | Relationship | Address | Phone | + + +---------+ + | Beth Mas | ECON | Unknown | | + + +---------+ + Care Team Providers + +------+ + | Care Optimization Engineer Name | Role | Phone | + +------+ + | Cesar Christopher MD | PCP | | + +------+ + Encounter Details +--------+ + + + + | Date | Type | Department | Care Team | Description | +--------+ + + + + | 05/20/ | Lab | [facility] | Judith Zhang | Essential | | 2018 | Requisition | [address] | I, Cell Room Supervisor | hypertension with | | | | [place] [address] | | goal blood pressure | | | | [phone] | | less than 130/85; | | [...] [address] | | | | | | [place] [address] | | | | | | [phone] | | | | | | | [...] + + + | [facility] | [address] | [place] [address] | [phone] | | LABORATORY | [address]vd[address] | | [...] | + + + + + | [facility] | [address] | [place] [address] | [phone] | | LABORATORY | Blvd. | | [...] | + + + + + | [facility] | [address] | [place] [address] | [phone] | | LABORATORY | Blvd. | | [...] + + + + + | Specific [place], [place] | 1.008 | 1.002 - 1.030 [...] + + + | [facility] | [address] | [place] [address] | [phone] | | LABORATORY | Blvd. | | [...] + + + | [facility] | [address] | [place] [address] | [phone] | | LABORATORY | Blvd. | | [...] | [address] | [place] [address] | [phone] | | LABORATORY | Blvd. | | [...] + + + | [facility] | [address] | [place] [address] | [phone] | | LABORATORY | Blvd. | | [...] (H) | 0.70 - 1.30 mg/dL | [facility] | | | | | LABORATORY | + + + + + | CALCIUM | 9.4 | 8.5 - 10.5 mg/dL | [facility] | | | | | LABORATORY | + + + + + | Albumin | 3.6 | 3.3 - 4.8 g/dL | [facility] | | | | | LABORATORY | + + + + + | PHOSPHORUS | 2.8 | 2.3 - 4.8 mg/dL | [facility] | | | | | LABORATORY | + + + + + | EGFR | 37 (L)Comment: GFR <60: | >60 mL/min/1.73_m2 | [facility] [employer] [facility] | | | CHRONIC KIDNEY DISEASE, | [...] | | | | using the MDRD IDKY | | | | | traceable equation. | | | + + + + + + + | Specimen | + + | Blood | + + + + + + + | Performing | Address | City/State/Zipcode | Phone Number | | Organization | | | | + + + + + | [facility] | [address] | [place] [address] | [phone] | | LABORATORY | [address] | | [...]
--- OUTSIDE RECORDS SUMMARY | ~2018-06-17 | XMS | Encounter Summary ---
Demographics + + + | Address | [address] | | | [place] [address] | + + + | Home Phone [...] Team Providers + +------+ + | Care Archeology Faculty Member Name | Role | Phone | + +------+ + | Gilberto Estrada MD | PCP | | + +------+ + Encounter Details +--------+ + + + + | Date | Type | Department | Care Team | Description | +--------+ + + + + | 06/12/ | Procedure | [facility]A Intra [facility] | | | | 2017 | Pass | [facility] | | | | | | Admitting Desk | | | | | | Located on the 9th | | | | | | floor [address] | | | | | | [facility] | | | | | | [place], [place] | | | | | | [address] | | | +--------+ + + + [...] | 07/23/ | Office | Orthopedics | [place], | | | 2017 | Visit | | [address] | | | | | | [address] | | | | | | [place], [place] | | | | | | [address] | | | | | | [phone] | | | | | | | | +--------+---------+ + + + as of this encounter Visit Diagnoses Not on filein this encounter"
--- OUTSIDE RECORDS SUMMARY | ~2018-06-17 | XMS | Encounter Summary ---
Demographics + + + | Address | [address] | | | [place] [address] | + + + | Home Phone | | + + + | Preferred Language | Unknown | + + + | Marital Status | | + + + | Confucianism Affiliation | 1077 | + + + | Race | Unknown | + + + | Ethnic Group | Unknown | + + + Author + + + | Author | [facility] [employer] | + + + | Organization | [facility] | + + + | Address | Unknown | + + + | Phone | Unavailable | + + + Support + + +---------+ + | Name | Relationship | Address | Phone | + + +---------+ + | Beth Mas | ECON | Unknown | | + + +---------+ + Care Team Providers + +------+ + | Care Optics Engineer Name | Role | Phone | + +------+ + | Cesar Christopher MD | PCP | | + +------+ + Encounter Details +--------+---------+ + + + | Date | Type | Department | Care Team | Description | +--------+---------+ + + + | 05/26/ | Office | [facility] | Mikal Calix MD | CKD (chronic kidney | | 2018 | Visit | [address] | [address] | disease), stage III | | | | [address] | [address] [place], [place] | (Primary Dx); | | | | [place] [address] | [address] | Bilateral leg edema; | | | | [phone] | | Type 2 diabetes | | | | | | mellitus without | | | | | | complication, | | | | | | without long-term | | | | | | current use of | | | | | | insulin (HCC); | | | | | | Secondary | | | | | | hyperparathyroidism | | | | | | (HCC) | +--------+---------+ + + + Social History [...] + + + | Blood Pressure | 113/65 | 05/26/2018 11:25 AM PDT | + + + + | Pulse | 80 | 05/26/2018 11:25 AM PDT | + + + + | Temperature | 36.4 C (97.5 F) | 05/26/2018 11:25 AM PDT | + + + + | Respiratory Rate | - | - | + + + + | Oxygen Saturation | 97% | 05/26/2018 11:25 AM PDT | + + + + | Inhaled Oxygen | - | - | | Concentration | | | + + + + | Weight | 89 kg (196 lb 4.8 | 05/26/2018 11:25 AM PDT | | | oz) | | + + + + | Height | 170.2 cm (5' 7") | 05/26/2018 11:25 AM PDT | + + + + | Body Mass Index | 30.74 | 05/26/2018 11:25 AM PDT | + + + + in this encounter Instructions Patient Instructions - Mikal Calix MD - 05/26/2018 11:10 AM PDTDiscussions/Recommendatio ns: I discussed today with Mr. Mas the meaning of his CKD & recent GFR decline and the int eraction of that with his hemodynamics. I stressed the importance of keeping his BP & BG controlled and avoiding getting dehydra dilcia if we are to have a chance at helping preserve his renal function; however, he knows champ t in the setting of his chronic heart failure, he needs to be very careful with over-hydrati on. He showed good understanding. I gave him instructions on how to chart his blood pressure in the appropriate manner at home. He is to call us if they fall outside of the optimal provided range. He will bring his sphygmomanometer for validation once a year. He will strictly abide by a low salt diet and will avoid all kinds of NSAIDs for analges ia. Also: I will not change any of his vasoactive meds today. He will report back to me his home BP readings if they fall outside of the optimal provi ded range. At that time, I will decide whether any change to his vasoactive regimen is warra nted. I asked him to elevate his legs for 1 hour twice a day. He knows that he still needs to be active and ambulatory carefully as possible. He will F/U with the Cardiology team closely. He will continue to F/U with your office regularly. He will have a RFP, Magnesium, CBC, intact PTH, urinalysis, Urine total fdcgeig-li-gqpfp inine ratio before he comes back in 4 months.in this encounter Progress Notes Mikal Calix MD - 05/26/2018 11:10 AM PDTFormatting of this note may be different from th e original. Patient Active Problem List Diagnosis CAD (coronary artery disease) Essential hypertension with goal blood pressure less than 130/85 Hyperlipidemia DVT (deep venous thrombosis) Type 2 diabetes mellitus without complication (HCC) Sleep apnea, obstructive Pacemaker Venous insufficiency of both lower extremities Skin lesions, generalized Morbid obesity due to excess calories (HCC) History of gout Type 2 diabetes mellitus without complication, without long-term current use of insulin (HCC) CKD (chronic kidney disease), stage III Bilateral leg edema Dear Dr Estrada: I saw your patient Mr. Mas in the office today. As you are familiar with his case, I oleg l not state his past history in detail. Briefly, he is a 78 y.o. male patient with past his tory as delineated above. he is here to be evaluated for a recent decline in his GFR. In , his sCr & eGFR were 1.73 & 38; in 03/2017: 1.6 & 42; in 08/2017: 1.86 & 35; 12/2017: 2.1 & 31. He tells me he's had acute bronchitis/pharyngitis since 10/2017. He was on 2 diffe rent Abx courses; the latest of which ended in late 11/2017. The patient has history of hypertension since ~1997, Diabetes Mellitus since ~1997; his BG and BP control has been reportedly adequate; he denies any history of prolonged exposure t o NSAIDs or recent exposure to known nephrotoxins. he denies any recurrent nephrolithiasis o r pyelonephritis. he tells me that he's had no history of urinary retention, gross hematuria or dysuria. he has mild urge incontinence symptoms. No symptoms of UTI. No history of frequ ency, nocturia, weak urinary stream, hesitancy, intermittence, incomplete emptying or urgenc y; he has 1-2 times nightly nocturia. No history of passing kidney stones. he has no foamy urine either. his baseline Creatinine is TBD. There is no family history of renal genetic d iseases such as PKD. he says that he feels 'good ' today. he denies any blurred vision tinnitus, headache, feve r, chills, or cough. No nausea, vomiting, abdominal pain, diarrhea, melena, or hematochezia . He has postural dizziness; no LOC; no falls. No chest pain, palpitation, loss of consciou sness, orthopnea, paroxysmal nocturnal dyspnea; but he has MATUTE, chronic, for which he F/U's with your office & with the Cardiology team; he has chronic leg edema. 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 The following portions of the patient's history were reviewed and updated as appropriate: a llergies, current medications, past medical history, past social history, past surgical hist ory, family history and problem list. *I also reviewed with him the report of his U/S from 02/2018, showing no evidence of any si gnificant renal anatomic abnormalities. As in History of Present Illness & in Assessment. All the pertinent systems were reviewed a nd were otherwise negative. Current Outpatient Prescriptions Medication Sig Dispense Refill acetaminophen-codeine (TYLENOL #3) 300-30 MG per tablet Take by mouth every 4 (four) h ours as needed for Pain. allopurinol (ZYLOPRIM) 300 MG tablet Take 300 mg by mouth daily. carvedilol (COREG) 12.5 MG tablet TAKE ONE TABLET BY MOUTH TWICE DAILY 180 tablet 2 cholecalciferol (VITAMIN D-3) 1000 UNITS tablet Take 1,000 Units by mouth daily. colchicine 0.6 MG tablet Take 0.6 mg by mouth daily as needed. Doxycycline Monohydrate 150 MG CAPS Take 100 mg by mouth 2 (two) times daily. eplerenone (INSPRA) 25 MG tablet Take 0.5 tablets by mouth daily. 30 tablet 6 folic acid (FOLVITE) 400 MCG tablet Take 400 mcg by mouth daily. glimepiride (AMARYL) 4 MG tablet Take 4 mg by mouth every morning before breakfast. isosorbide mononitrate (IMDUR) 60 MG 24 hr tablet Take 1 tablet by mouth daily. 90 tabl et 3 magnesium oxide (MAG-OX) 400 MG tablet Take 1 tablet by mouth daily. 30 tablet 2 metFORMIN (GLUCOPHAGE) 500 MG tablet Take 500 mg by mouth 2 (two) times daily with meal s. Multiple Vitamins-Minerals (EYE VITAMINS) CAPS Take 1 tablet by mouth. nystatin-triamcinolone (MYCOLOG) ointment Apply topically 2 (two) times daily as neede d. Corona-3 Fatty Acids (FISH OIL) 1200 MG CAPS Take 1,200 mg by mouth 2 (two) times daily. simvastatin (ZOCOR) 40 MG tablet Take 40 mg by mouth nightly. torsemide (DEMADEX) 20 MG tablet Take 20 mg by mouth 2 (two) times daily. warfarin (COUMADIN) 2.5 MG tablet Take 2.5 mg by mouth daily. Dr. Christopher regulates PTs No current facility-administered medications for this visit. Physical Exam: BP 113/65 (BP Location: Left upper arm, Patient Position: Sitting) | Pulse 80 | Temp 97.5 F (36.4 C) (Temporal) | Ht 1.702 m (5' 7") | Wt 89 kg (196 lb 4.8 oz) | SpO2 97% | BMI 30.74 kg/m General appearance: Pleasant, not in acute distress. Neck: Supple without tracheal deviation or jugular venous distension. Head and ENT: Head is atraumatic. The oropharynx is without erythema or thrush. Eyes: Anicteric. The extraocular muscle movements are normal. Lungs: Clear to auscultation bilaterally. There are no wheezes. Heart: Regular rate and rhythm without any rub, gallop. No murmur. Abdominal exam: Obese. Soft and nontender with normal bowel sounds. Midline ventral + an u mbilical hernia noted. Musculoskeletal: No costovertebral angle tenderness bilaterally. Extremities: Warm to touch with 1+ leg edema. There is no cyanosis. Skin: There are no rashes, petechiae, or ecchymosis. But he has changes of stasis dermatit is in the lower legs. Neurological: Awake, alert, and oriented to time, place, and person. Normal gross motor po wer. There is no asterixis. Psychiatric: The patient s behavior is normal. Judgment and thought content are normal. Lab Results Component Value Date BUN 40 (H) 05/20/2018 CREATININE 1.8 (H) 05/20/2018 EGFR 37 (L) 05/20/2018 NA 141 05/20/2018 K 3.6 05/20/2018 CL 98 (L) 05/20/2018 CO2 35 (H) 05/20/2018 CA 9.4 05/20/2018 PHOS 2.8 05/20/2018 MG 2.3 05/20/2018 ALB 3.6 05/20/2018 HGB 13.3 05/20/2018 URICACID 5.0 02/12/2018 WBC 5.91 05/20/2018 HCT 38.5 (L) 05/20/2018 LABPROT 0.163 05/20/2018 [id number] 01/12/2018 Assessment: Mr. Mas is a 78 y.o. male patient with stage III CKD on a background of diabetes & hypert ension. The most likely pathology here is that of diabetic nephropathy +/- hypertensive neph rosclerosis/arteriolosclerosis. RENAL FUNCTION: Better vs 12/2017. His GFR was lower in 12/2017, likely in the setting of a lingering URI + the use of Abx then BLOOD PRESSURE: Acceptable given his chronic HF BLOOD SUGAR: Reports it controlled ELECTROLYTES: Acceptable; but he has a mild met alkalosis (from a bout of diarrhea that w as limited on the day before lab day) ANEMIA: none VITAMIN D: To be checked thru your office PARATHYROID HORMONE: Mildly up URIC ACID: ok PROTEINURIA: Very mild now URINALYSIS: No UTI or hematuria VOLUME STATUS: Euvolumic. Discussions/Recommendations: I discussed today with Mr. Mas the meaning of his CKD & recent GFR decline and the int eraction of that with his hemodynamics. I stressed the importance of keeping his BP & BG controlled and avoiding getting dehydra dilcia if we are to have a chance at helping preserve his renal function; however, he knows champ t in the setting of his chronic heart failure, he needs to be very careful with over-hydrati on. He showed good understanding. I gave him instructions on how to chart his blood pressure in the appropriate manner at home. He is to call us if they fall outside of the optimal provided range. He will bring his sphygmomanometer for validation once a year. He will strictly abide by a low salt diet and will avoid all kinds of NSAIDs for analges ia. Also: I will not change any of his vasoactive meds today. He will report back to me his home BP readings if they fall outside of the optimal provi ded range. At that time, I will decide whether any change to his vasoactive regimen is warrshruti nthugo. I asked him to elevate his legs for 1 hour twice a day. He knows that he still needs to be active and ambulatory carefully as possible. He will F/U with the Cardiology team closely. He will continue to F/U with your office regularly. He will have a RFP, Magnesium, CBC, intact PTH, urinalysis, Urine total jxlfman-th-xlefp inine ratio before he comes back in 4 months. 15 minutes of this 25-minute visit was spent in education and counseling. Thank you Dr Estrada for the opportunity to see this patient in F/U today. Please do not he sitate to call me at any time with questions or concerns. Truly yours, MD KATYA KraftP RADHA LOPEZ in this encounter Plan of Treatment +--------+ + + + + | Date | Type | Specialty | Care Team | Description | +--------+ + + + + | 07/22/ | Documentati | Cardiology | | | | 2017 | on Only | | | | +--------+ + + + + | 09/24/ | Office | Nephrology | Gutierrez Prado, | | | 2017 | Visit | | [address] | | | | | | [address] | | | | | | [place] [address] | | | | | | [phone] | | | | | | | [...] Stage III (moderate) | + + | Bilateral leg edema | + + | Edema | + + | Type 2 diabetes mellitus without complication, without long-term current use of insulin | | (HCC) | + + | Secondary hyperparathyroidism (HCC) | + + | Secondary hyperparathyroidism (of renal origin) | + +
--- OUTSIDE RECORDS SUMMARY | ~2018-06-17 | XMS | Encounter Summary ---
Demographics + + + | Address | [address] | | | [place] [address] | + + + | Home Phone | | + + + | Preferred Language | Unknown | + + + | Marital Status | | + + + | Restoration Affiliation | 1077 | + + + | Race | Unknown | + + + | Ethnic Group | Unknown | + + + Author + + + | Author | [facility] [employer] | + + + | Organization | [facility] [employer] [facility] | + + + | Address | Unknown | + + + | Phone | Unavailable | + + + Support + + +---------+ + | Name | Relationship | Address | Phone | + + +---------+ + | Beth Mas | ECON | Unknown | | + + +---------+ + Care Team Providers + +------+ + | Care Prototype Assembler Electronics Name | Role | Phone | + +------+ + | Cesar Christopher MD | PCP | | + +------+ + Encounter Details +--------+ + + + + | Date | Type | Department | Care Team | Description | +--------+ + + + + | 04/27/ | Telephone | [facility] | [address] | | | 2017 | | [facility] [place] | | | | | | [address] | | | | | | [place] | | | | | | [address] | | | | | | [phone] | | | +--------+ + + + [...] | | | | | [place] [address] | | | | | | [phone] | | | | | | | | +--------+ + + + + | 10/21/ | Documentati | Cardiology | | | | 2018 | on Only | | | | +--------+ + + + + as of this encounter Visit Diagnoses Not on filein this encounter"
--- OUTSIDE RECORDS SUMMARY | ~2018-06-17 | XMS | Encounter Summary ---
Demographics + + + | Address | [address] | | | [place] [address] | + + + | Home Phone | | + + + | Preferred Language | Unknown | + + + | Marital Status | Unknown | + + + | Shinto Affiliation | PRO | + + + | Race | White | + + + | Ethnic Group | Not or | + + + Author + + + | Author | [facility] | + + + | Organization | [facility] | + + + | Address | Unknown | + + + | Phone | Unavailable | + + + Support + + +---------+ + | Name | Relationship | Address | Phone | + + +---------+ + | FATUMA MAS | ECON | Unknown | | + + +---------+ + Care Team Providers + +------+ + | Care Tank Pumper Name | Role | Phone | + +------+ + | Gilberto Estrada MD | PCP | | + +------+ + Encounter Details +--------+---------+ + + + | Date | Type | Department | Care Team | Description | +--------+---------+ + + + | 06/12/ | Surgery | 6A Intra Op [facility] | [place], | RIGHT KNEE I&D, | | 2017 | | [facility] | [address] | POSSIBLE COMPONENT | | | | Admitting Desk | [facility] | EXCHANGE, POSSIBLE | | | | Located on the | [facility] [place] | REVISION | | | | floor [address] | [address] | | | | | [facility] | [phone] | | | | | [place], [place] | | | | | | [address] | | | +--------+---------+ + + + [...] + + + as of this encounter Medications at Time [...] by | | | | | | [id number] | mouth once daily. | | | [...] mouth. | | | | | | [id number]-[id number]-fish oil | | | | | | [...] +---------+ + + as of this encounter Plan of Treatment +--------+---------+ + + + | Date | Type | Specialty | Care Team | Description | +--------+---------+ + + + | 07/23/ | Office | Orthopedics | [place], | | | 2017 | Visit | | [address] | | | | | | [address] | | | | | | [place], [place] | | | | | | [address] | | | | | | [phone] | | | | | | | [...] | | DRAINAGE WITH | ve | 11:10 AM | PROSTHETIC JOINT | | | ANTIBIOTIC SPACER | Surgic | PDT | INFECTION | | | PLACEMENT | al | | | | + +--------+ + + + in this encounter Visit Diagnoses Not on filein this encounter Admitting Diagnoses + + | Diagnosis | + + | RIGHT KNEE PROSTHETIC JOINT INFECTION | + +"
--- OUTSIDE RECORDS SUMMARY | ~2018-06-17 | XMS | Clinical Summary ---
Demographics + + + | Address | [address] | | | [place] [address] | + + + | Home Phone | | + + + | Preferred Language | Unknown | + + + | Marital Status | | + + + | Holiness Affiliation | 1077 | + + + | Race | Unknown | + + + | Ethnic Group | Unknown | + + + Author + + + | Author | [facility] | + + + | Organization | [facility] | + + + | Address | Unknown | + + + | Phone | Unavailable | + + + Support + + +---------+ + | Name | Relationship | Address | Phone | + + +---------+ + | Beth Mas | ECON | Unknown | | + + +---------+ + Care Team Providers + +------+ + | Care Lead Principal Technical Architect Name | Role | Phone | [...] | | | + + +--------+---------+------+------+-------+ | Black Diamond-3 Fatty | Take 1,200 mg by | [...] + | Overview: He is seen a vineyard worker because of generalized | | skin lesions [...] + + | Overview: 1. Pulse generator: Stylect. Model number [id number], | | serial number [id number]. Placed because of symptomatic sinus | | [...] block.2. RV | | lead: Medtronic, model #041915, serial number [id number]. RA | | lead: Medtronic, model #256264, serial number [id number]. This | | is an Medtronic MRI [...] is planning to | | go to [place] after . He is on warfarin at [...] distal | | inferior-apical ischemia, LVEF 53%.[employer], | | 10/10/2016: sinus rhythm, with frequent PVC's, no VT, however, | | 1st degree AVB, 2nd degree AVB (Type 1 and 2), 3.5sec asystole, | | bundle branch block.ECG, 09/12/2016: sinus rhythm, 78bpm, 1st | | degree AVB, old inferior IN, RBBB/LAFB. | + + + + + [...] | 2017 | Requisition | | I, Vba Programmer | hypertension with | | | | [...] [address] | | | | | | [place] [address] | | | | | | [phone] | | | | | | | [...] | Rhythm | | | | | [address] | | Mikal Ha MD | | [...] | Rhythm | | | | | [address] | | Mikal Ha MD | | | | | | / | | | Manage | | | | | | | | ment | | | | | | + +--------+-------+ +--------+--------+--------+ | Advis[address] Dr Mri | Pacema | Chest | MEDTRONIC [...] | | 2017 | -500 | | [id number]: Qty: 1 on | | | | | | /[id number] | | 09/07/2013 by Aris, | | | | | | 500 | | Drew Napoles MD | | | | | | /[id number] | + +--------+-------+ +--------+--------+--------+ | Patella Triathlon 38mm 11mm | | | | | 04/25/ | 5551-G | | Height - [id number]: | | | | | 2017 | [...] | | 2017 | -402 | | [id number]: Qty: 1 on | | | | [...] - | | | | | | /[id number] | | [id number]: Qty: 1 on | | | | | | 001 | | 09/07/2013 by Aris, | | | | | | /[id number] | | Drew Napoles MD | | | | | | 1 | + +--------+-------+ +--------+--------+--------+ | Insert Tibial Triathlon Cs Sz | | | | | 01/23/ | 5531-G | | 5 13mm - [id number]: | | | | | 2017 | [...] + + + | [facility] | [address] | [place] [address] | [phone] | | LABORATORY | Blvd. | | [...] + + + | [facility] | [address] | [place] [address] | [phone] | | LABORATORY | Blvd. | | [...] + + + | [facility] | [address] | [place] [address] | [phone] | | LABORATORY | Blvd. | | [...] + + + + + | Specific [place], [place] | 1.008 | 1.002 - 1.030 [...] | [address] | [place] [address] | [phone] | | LABORATORY | Blvd. | | [...] + + + | [facility] | [address] | [place] [address] | [phone] | | LABORATORY | Blvd. | | [...] + + + | [facility] | [address] | [place] [address] | [phone] | | LABORATORY | Blvd. | | [...] + + + | [facility] | [address] | [place] [address] | [phone] | | LABORATORY | Blvd. | | [...] 9.4 | 8.5 - 10.5 mg/dL | [facility] | | | | | LABORATORY | + + + + + | Albumin | 3.6 | 3.3 - 4.8 g/dL | [facility] | | | | | LABORATORY | + + + + + | PHOSPHORUS | 2.8 | 2.3 - 4.8 mg/dL | [facility] | | | | | LABORATORY | + + + + + | EGFR | 37 (L)Comment: GFR <60: | >60 mL/min/1.73_m2 | [facility] | | | CHRONIC KIDNEY DISEASE, | [...] + + + | [facility] | [address] | [place] [address] | [phone] | | LABORATORY | Blvd. | | [...] +------+-------+ + | MEDICARE | MEDICA | [id number] | | | [address] | | | [place] | | | | [place] [address] | | | IP-OP | | | | | + +--------+ +------+-------+ + | CIGNA | CIGNA | [id number] | | | | | | - [...] | + +--------+ +--------+ + + | MAXWELL,JÚNIOR L | Person | Self [birth year] | Home: | [address] | | | al/Fam | | [phone] | [phone] [place] [address] | | | afshan | | | [phone] | | + +--------+ +--------+ + +
--- OUTSIDE RECORDS SUMMARY | ~2018-06-17 | XMS | Encounter Summary ---
Demographics + + + | Address | [address] | | | [place] [address] | + + + | Home Phone | | + + + | Preferred Language | Unknown | + + + | Marital Status | | + + + | Yazdanism Affiliation | 1077 | + + + | Race | Unknown | + + + | Ethnic Group | Unknown | + + + Author + + + | Author | [facility] | + + + | Organization | [facility] | + + + | Address | Unknown | + + + | Phone | Unavailable | + + + Support + + +---------+ + | Name | Relationship | Address | Phone | + + +---------+ + | Bteh Mas | ECON | Unknown | | + + +---------+ + Care Team Providers + +------+ + | Care Viscosity Worker Name | Role | Phone | [...] Other (Blood | | 2017 | | [address] | | Pressure Check) | | | | [address] | | | | | | [place] [address] | | | | | | [phone] | | | +--------+ + + + [...] | | | | | [place] [address] | | | | | | [phone] | | | | | | | | +--------+ + + + + | 10/21/ | Documentati | Cardiology | | | | 2017 | on Only | | | | +--------+ + + + + as of this encounter Visit Diagnoses Not on filein this encounter"
--- OUTSIDE RECORDS SUMMARY | ~2018-06-17 | XMS | Encounter Summary ---
Demographics + + + | Address | [address] | | | [place] [address] | + + + | Home Phone [...] Team Providers + +------+ + | Care Central Office Worker Name | Role | Phone | [...] | | | | | associated | [address] | | | | | | with | [address] | | | | | | internal | [address] | | | | | | right knee | [place], [place] | | | | | | prosthesis, | [address] | | | | | | subsequent | Phone: | | | | | | encounter | [phone] | | | | | | Procedures | Fax: | | | | | | OCCUPATIONAL | [phone] | | | | | | THERAPY [...] | | | | | associated | [address] | | | | | | with | [address] | | | | | | internal | Mary Norris | | | | | | right knee | [place], [place] | | | | | | prosthesis, | [address] | | | | | | subsequent | Phone: | | | | | | encounter | [phone] | | | | | | Procedures | Fax: | | | | | | PHYSICAL | [phone] | | | | | | THERAPY [...] | | | [address] | [address] | | | 06/17/ | | [place] [address] | [place], [place] | | | 2018 | | [phone] | [address] | | | | | | [phone] | | | | | | | | | | | | Edyta Demarco MD | | | | | | [address] | | | | | | [address] | | | | | | [facility] [place] | | | | | | [address] | | | | | | [phone] | | | | | | | | | | | | Dean Ugarte MD | | | | | | [address] | | | | | | [address] [facility], | | | | | | [place] [address] | | | | | | [phone] | | | | | | | | | | | | [place] Mercado MD | | | | | | Flaquita Valverde | | | | | | MD Xavier Walton, | | | | | | MD Hugh [address] | | | | | | [address] | | | | | | [place], [place] | | | | | | [address] | | | | | | [phone] | | | | | | | | | | | | Ann Mahmood MD | | | | | | [address] | | | | | | [address] | | | | | | [place], [place] | | | | | | [address] | | | | | | [phone] | | | | | | | [...] (s/p PCI x3, CABG x2) complicated by laboratory engineer erich systolic heart failure (EF 45%) [...] excellent response. He will continue PT/OT at [facility] swing bed unit. Per orthopedic surgery, [...] I-CAPS 280-10-2 mg Cap Generic drug: antiox.mv no.74-mags5e-hrgofek2e-jjx-ldn Take 1 capsule by mouth once daily. [...] (Non-Steroidal Anti-Inflammatory Drug) Renal Failure Avoid per Floorleader recommendations Sulfa (Sulfonamide Antibiotics) Rash Vital Signs [...] for after-discharge care Discharge Destination IP [facility] . Specialty: Acute Care Hospital Contact information [address] [place] [address] [place] Location: [facility] swing bed unit Appointments: Dr. Hyde on 07/23/18 at 10:40am. The discharge note was forwarded to the PCP for review. Discharging Physician: Ann Mahmood MD Suggested CPT: 03514 Discharge Management > 30 minute I spent more than 35 minutes ijgz-ru-upwz with the patient of which 70% was [...] by | | | | | | no.50-vtkf0o-ioezeix5i-ugy-tve | mouth once daily. | | | [...] mouth. | | | | | | 1-msx-fqc-fish oil | | | | | | [...] tablet by | 60 | 0 | 08/21/20 | | | 8.6-50 mg oral | [...] negative pressure wound therapy dressing right knee [id number] Subjective: Doing ok overall. No CP/SOB. Tolerating [...] < 2 seconds Assessment & Plan: Duane Chace is a 78 y.o.M with the orthopaedic diagnoses and procedures listed above. Today's specific concerns include: Recovering well. PICC placed yesterday. ID final recs for 6 weeks of IV ceftriaxone. Dispo: Plan to DC today to SNF in [place]. SNF can pull sutures at 2 weeks from operat kai date (June 27 is 2 weeks post op). Plan to return to Dr. Hyde' clinic 6 weeks an d also have ID clinic visit on that day. Appreciate [facility] and ID help in managing this [...] knee at that time. Elias Soriano MD [facility] Department of Orthopaedics and Rehabilitation PGY-1 Pager [phone] Ann Mahmood MD - 06/16/2018 4:42 PM [...] (s/p PCI x3, CABG x2) complicated by laboratory engineer erich systolic heart failure (EF 45%) [...] mg daily Dispo: Anticipate discharge tomorrow to [facility] bed unit if renal function is s table Code status: Full code Diet: Regular diet Prophy: warfarin and heparin Ann Mahmood MD Car Fillermixologist Clinical Hospitalist and Medicine Teaching Services [facility] Pager [phone] Suggested CPT: 88896 Subsequent Visit Detailed/High complexity 35 min I spent 37 minutes bdxc-qm-ftgh with the patient of which 78% was [...] negative pressure wound therapy dressing right knee [id number] Subjective: Doing ok overall. No CP/SOB. Tolerating [...] to home as t ransporting back to [place] may present the patient and family undo hardship. 6. Dressings/Drains: Pulled yesterday? 7. Dispo/Discharge: Anticipate discharge to SNF in next 1-3 days if all criteria met. 8. Follow-up: Please call the clinic to make a follow up appointment in approximately 2 wee ks with ORTHO TRAUMA & FRACTURE, . AP and lateral of R knee at that time. Elias Soriano MD [facility] Department of Orthopaedics and Rehabilitation PGY-1 Pager [phone] Tanvir Ayala - 06/16/2018 8:20 AM PDTFormatting [...] three and a half hours away from [place]. At this time, we are unsur e of his ability to follow up with an OPAT clinic or if there is a provider near [place], where the patient resides. 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 This patient was staffed [facility] Dr. Villalobos, who agrees with the above assessment and plan unless otherwise documented. EVERARDO Edouard P SUBJECTIVE Interval Events: No acute events [...] Outs: Intake/Output Summary (Last 24 hours) at 08/20/18 0818 Last data filed at 06/15/18 0646 [...] (or 3 results): Recent Labs 06/12/18 1627 06/12/184 06/14/18 0524 06/14/18 1800 06/15/18 0704 NA [...] 72 hours (or 3 results) Recent Labs 06/12/184 06/13/18 0436 06/14/18 0524 AST 40 60* [...] Dona Mercado MD Division of Hospital Medicine [facility] Pager [phone] I spent more than 35 minutes usft-ce-typw with the patient of which greater than [...] negative pressure wound therapy dressing right knee [id number] Subjective: Doing ok overall, not too much pain in right knee. Looking forward to getting tube backer to home, "My wants to get back [...] to home as t ransporting back to [place] may present the patient and family undo hardship. 6. Dressings/Drains: Continue drain 7. Dispo/Discharge: Anticipate discharge to SNF in next 1-3 days if all criteria met. 8. Follow-up: Please call the clinic to make a follow up appointment in approximately 2 wee ks with ORTHO TRAUMA & FRACTURE, . AP and lateral of R knee at that time. Sisi Pablo, [facility] Orthopaedic Trauma Surgery Pager [phone] Stephan Mercado MD - 06/14/2018 8:59 AM [...] 72 hours (or 3 results) Recent Labs 06/12/184 06/13/18 0436 06/14/18 0524 AST 40 60* [...] Andrichard Mercado MD Division of Hospital Medicine [facility] Pager [phone] I spent more than 35 minutes dofn-jp-lumc with the patient of which greater than [...] negative pressure wound therapy dressing right knee [id number] Subjective: Pain improving in R knee. Objective: [...] at that time. SEBAS PLEITEZ MD Pager [phone] Stephan Mercado MD - 06/13/2018 9:51 AM [...] 72 hours (or 3 results) Recent Labs 08/16181106/12/18222206/13/18 0436 WBC 9.95 11.67* 11.11* HB 10.8* 11.4* 11.7* HCT 31.7* 34.2* 35.2* PLT 188 216 136* NEUTROPERC 65.9 -- -- LYMPHPERC 21.3 -- -- MONOPERC 11.4* -- -- BASOPERC 0.3 -- -- EOSPERC 0.3* -- -- Chemistries last 72 Hours (or 3 results): Recent Labs 06/12/18162606/12/18222306/13/18 0436 NA 138 139 136 K 3.6 [...] Andrichard Mercado MD Division of Hospital Medicine [facility] Pager [phone] I spent more than 35 minutes bhdi-pu-hvsy with the patient of which greater than [...] negative pressure wound therapy dressing right knee [id number] Subjective: Painful in R knee today, but [...] at that time. SEBAS PLEITEZ MD Pager [phone] Stephan Mercado MD - 06/12/2018 1:24 PM [...] Dona Mercado MD Division of Hospital Medicine [facility] Pager [phone] I spent more than 35 minutes mzkn-mq-sosw with the patient of which greater than 50% was sp ent counseling the patient or in coordination of care. in this encounter Plan of Treatment +--------+---------+ + + + | Date | Type | Specialty | Care Team | Description | +--------+---------+ + + + | 07/23/ | Office | Orthopedics | Sandoval Hyde, | | | 2017 | Visit | | [address] | | | | | | [address] | | | | | | [place], [place] | | | | | | [address] | | | | | | [phone] | | | | | | | [...] LOZADA, POINT OF CARE TESTS [address] | | | [place] [address] | + + + INR (06/17/2018 3:59 AM) + + + + | Component | Value | Ref Range | + + + + | INR | 1.78 (H) | 0.90 - 1.20 INR | + + + + + + + | Specimen | Performing Laboratory | + + + | Blood | [facility], CORE [address] | | | [place] [address] | + + + + + | [...] 46 (L) | >60 mL/min | | CONGOLESE | | | + + + + | EGFR NON | 38 (L) | >60 mL/min | | -CONGOLESE | | | + + + + [...] | + + + | Blood | [facility], CORE [address] | | | [place] [address] | + + + + + | [...] Laboratory | + + + | | [facility] DARSHANA [facility]TON, POINT OF CARE TESTS [address] | | | [place] [address] | + + + CAPILLARY BLOOD GLUCOSE [...] WHITNEY LOZADA POINT OF CARE TESTS [address] | | | [place] [address] | + + + X-RAY PORTABLE CHEST 1 VIEW (06/16/2018 4:29 PM) + + + | Specimen | Performing Laboratory | + + + | | [facility] RADIOLOGY VOICE RECOGNITION 2 | + + + + + | Narrative | + + | EXAM: ME CHEST 1 VIEW HISTORY: PICC placement. Prosthetic [...] Preliminary: Claribel Byrnes MD Dictation initiated: Claribel | Skye Byrnes MD 06/16/2018 4:27 PM | + + + + | Procedure Note | + + | Service Account, [email or web address] Res In Interface - 06/16/2018 4:44 PM PDT EXAM: ME CHEST 1 | | VIEW HISTORY: PICC [...] + | Narrative | + + | Frances Mayberry RN 06/16/2018 3:44 PM PICC LINE Performed by: CRISTINA | | FRANCES Authorized by: ANN MAHMOOD PICC/Midline Insertion Procedure Note | | Indications:Administration IV fluids and meds, Antibiotics and Frequent lab draws | | Procedure location: Unit:9 V Room: 14 Providers: Attending name: Attending | | physically present: No PICC Nurse name: Frances Manjula QUILTER FIXER VAT Assisted by | | Christina March QUILTER FIXER VAT Pre-Procedure Consent: written consent obtained Consent | | given by: Patient Patient identity confirmed per protocol: Yes Team Pause: | | Immediatly prior to the procedure a pause per protocol was called. A pause verifies | | correct patient, procedure, equipment, learning support specialist and site/side marked as required. [...] Arm area Basilic vein. Catheter lot number: [id number] with a length of 55 cm | [...] Laboratory | + + + | | [facility] DARSHANA LOZADA, POINT OF CARE TESTS [address] | | | [place] [address] | + + + INR (06/16/2018 4:23 AM) + + + + | Component | Value | Ref Range | + + + + | INR | 1.51 (H) | 0.90 - 1.20 INR | + + + + + + + | Specimen | Performing Laboratory | + + + | Blood | [facility], CORE [address] | | | [place] [address] | + + + + + | [...] 38 (L) | >60 mL/min | | CONGOLESE | | | + + + + | EGFR NON | 32 (L) | >60 mL/min | | -CONGOLESE | | | + + + + [...] | + + + | Blood | [facility], CORE [address] | | | [place] [address] | + + + + + | [...] + + + | | [facility] [place], POINT OF CARE TESTS [address] | | | [place] [address] | + + + CAPILLARY BLOOD GLUCOSE (NO CHG), POC (06/15/2018 6:52 PM) + +---------+ + | Component | Value | Ref Range | + +---------+ + | BLOOD GLUCOSE, POC | 264 (H) | 70 - 99 mg/dL | + +---------+ + + + + | Specimen | Performing Laboratory | + + + | | [facility] BERNAAM MILTON, POINT OF CARE TESTS [address] | | | [facility] [address] | + + + CAPILLARY BLOOD GLUCOSE [...] LOZADA POINT OF CARE TESTS [address] | | | [place] [address] | + + + CBC AND AUTO [...] | + + + | Blood | [facility], [address] | | | [place] [address] | + + + + + | [...] | ------ CBC AND AUTO | | DIFF[[id number]] Abnormal Final | | result Please view [...] 37 (L) | >60 mL/min | | CONGOLESE | | | + + + + | EGFR NON | 31 (L) | >60 mL/min | | -CONGOLESE | | | + + + + [...] | + + + | Blood | [facility], CORE [address] | | | [place] [address] | + + + + + | [...] | + + + | Urine | [facility], CORE [address] [facility] | | | [place] [address] | + + + UREA NITROGEN, URINE [...] | + + + | Urine | [facility], CORE [address] | | | [place] [address] | + + + + + | [...] | + + + | Urine | [facility], CORE [address] | | | [place] [address] | + + + + + | [...] | + + + | Urine | [facility], CORE [address] | | | [place] [address] | + + + + + | [...] Laboratory | + + + | | [facility], POINT OF CARE TESTS [address] | | | [place] [address] | + + + BASIC METABOLIC SET [...] 36 (L) | >60 mL/min | | CONGOLESE | | | + + + + | EGFR NON | 29 (L) | >60 mL/min | | -CONGOLESE | | | + + + + [...] | + + + | Blood | [facility], CORE [address] | | | [place] [address] | + + + + + | Narrative | + + | Please draw vancomycin trough immediately prior to 18:00 dose on 06/14/18. Hold dose | | until Pharmacist confirms level is appropriate. Page [phone] or call [phone] with | | questions. Thank you. GFR [...] | + + + | Blood | [facility], CORE [address] | | | [place] [address] | + + + + + | [...] | + + + | Blood | [facility], CORE [facility] | | | [place] [address] | + + + + + | Narrative | + + | Please draw vancomycin trough immediately prior to 18:00 dose on 06/14/18. Hold dose | | until Pharmacist confirms level is appropriate. Page [phone] or [phone] with | | questions. Thank you. | + + CAPILLARY BLOOD GLUCOSE (NO CHG), POC (06/14/2018 3:38 PM) + +---------+ + | Component | Value | Ref Range | + +---------+ + | BLOOD GLUCOSE, POC | 216 (H) | 70 - 99 mg/dL | + +---------+ + + + + | Specimen | Performing Laboratory | + + + | | [facility], POINT OF CARE TESTS [address] | | | [place] [address] | + + + CAPILLARY BLOOD GLUCOSE (NO CHG), POC (06/14/2018 9:52 AM) + +--------+ + | Component | Value | Ref Range | + +--------+ + | BLOOD GLUCOSE, POC | 59 (L) | 70 - 99 mg/dL | + +--------+ + + + + | Specimen | Performing Laboratory | + + + | | [facility] DARSHANA [facility]TON, POINT OF CARE TESTS [address] | | | [place] [address] | + + + CBC (HEMOGRAM) ONLY [...] | + + + | Blood | [facility], CORE [address] [place] [address] | | | [place] [address] | + + + + + | [...] | | ------ CBC (HEMOGRAM) | | ONLY[[id number]] Abnormal Final | | result Please view [...] 37 (L) | >60 mL/min | | CONGOLESE | | | + + + + | EGFR NON | 31 (L) | >60 mL/min | | -CONGOLESE | | | + + + + [...] | + + + | Blood | [facility], CORE [address] | | | [place] [address] | + + + + + | [...] Laboratory | + + + | | [facility], POINT OF CARE TESTS [address] | | | [place] [address] | + + + CAPILLARY BLOOD GLUCOSE [...] LOZADA POINT OF CARE TESTS [address] | | | [place] [address] | + + + CAPILLARY BLOOD GLUCOSE [...] LOZADA, POINT OF CARE TESTS [address] | | | [place] [address] | + + + 12 LEAD ECG [...] + | ECG IMPRESSION | Borderline prolonged ME interval | | + + + + [...] Laboratory | + + + | | [facility] [address] [place] [address] | | | [place] [address] | + + + CAPILLARY BLOOD GLUCOSE [...] LOZADA, POINT OF CARE TESTS [address] | | | [place] [address] | + + + CBC (HEMOGRAM) ONLY [...] | + + + | Blood | [facility], CORE [address] [facility] | | | [place] [address] | + + + + + | [...] | | ------ CBC (HEMOGRAM) | | ONLY[[id number]] Abnormal Final | | result Please view [...] 48 (L) | >60 mL/min | | CONGOLESE | | | + + + + | EGFR NON | 40 (L) | >60 mL/min | | -CONGOLESE | | | + + + + [...] | + + + | Blood | [facility], CORE [address] | | | [place] [address] | + + + + + | [...] | + + + | Blood | [facility], CORE [address] [place] [address] | | | [facility] [address] | + + + + + | [...] 52 (L) | >60 mL/min | | CONGOLESE | | | + + + + | EGFR NON | 43 (L) | >60 mL/min | | -CONGOLESE | | | + + + + [...] | + + + | Blood | [facility], [facility] [address] | | | [place] [address] | + + + + + | [...] | + + + | Blood | [facility], TRANSF[facility]ION MEDICINE [address] [facility] | | | [place] [address] | + + + ANTIBODY SCREEN (06/12/2018 10:23 PM) + + + + | Component | Value | Ref Range | + + + + | Antibody Screen | Negative | | + + + + + + + | Specimen | Performing Laboratory | + + + | Blood | [facility], TRANSF[facility]ION MEDICINE [address] [facility] | | | [place] [address] | + + + CBC (HEMOGRAM) ONLY [...] | + + + | Blood | [facility], CORE [address] [place] [address] | | | [facility] [place] [address] | + + + + + | [...] | + + + | Blood | [facility], TRANSFUSION MEDICINE [address] [place] [address] | | | [place] [address] | + + + CBC ONLY (06/12/2018 10:23 PM) + + + | Specimen | Performing Laboratory | + + + | Blood | | + + + + + | Narrative | + + | The following orders were created for panel order CBC ONLY. | | Procedure | | Abnormality Status | | --------- | | ------ CBC (HEMOGRAM) | | ONLY[[id number]] Abnormal Final | | result Please view [...] | + + + | Blood | [facility], CORE [address] | | | [place] [address] | + + + + + | [...] LOZADA, POINT OF CARE TESTS [address] | | | [place] [address] | + + + COMPLETE METABOLIC SET [...] 50 (L) | >60 mL/min | | CONGOLESE | | | + + + + | EGFR NON | 41 (L) | >60 mL/min | | -CONGOLESE | | | + + + + [...] | + + + | Blood | [facility], CORE [address] | | | [place] [address] | + + + + + | [...] | + + + | Blood | [facility], CORE [address] | | | [place] [address] | + + + CAPILLARY BLOOD GLUCOSE [...] LOZADA POINT OF CARE TESTS [address] | | | [place] [address] | + + + PROCEDURE NOTE (06/12/2018 2:57 PM) + + | Narrative | + + | Sandoval Hyde MD 06/17/2018 2:15 PM Date of Service: 08/01/2015 | | Attending Surgeon: Sandoval Hyde MD Squeegee Finisher(s): mesfin thompson MD | | Preoperative Diagnosis: 1. right total knee prosthetic joint infection. | | Postoperative Diagnosis: same Procedures Performed: 1. Right knee arthrotomy | | with drainage for infection and polyethylene exchange 2. Application TINO disposible | | negative pressure wound therapy dressing right knee [id number] Anesthesia: General | | endotracheal anesthesia. Implants: excahgned alisha triathalon poly size 15, 13mm | | EBL: 50 Complications: None Specimens: 6 cultures, 1 path Indication For | | Procedure: Solo Alves was transferred to [facility] for sepsis after previosuly having | | [...] as well as a | | large Daija wrap. He was then awoken [...] | | stands. Sandoval Hyde MD, MPH Varitype Operator, Dept. of Orthopaedics | | [facility] [address] | | [place] [address] [email or web address] | + + CAPILLARY BLOOD GLUCOSE (NO CHG), POC (06/12/2018 2:42 PM) + +---------+ + | Component | Value | Ref Range | + +---------+ + | BLOOD GLUCOSE, POC | 134 (H) | 70 - 99 mg/dL | + +---------+ + + + + | Specimen | Performing Laboratory | + + + | | [facility], POINT OF CARE TESTS [address] | | | [place] [address] | + + + CAPILLARY BLOOD GLUCOSE (NO CHG), POC (06/12/2018 2:08 PM) + +--------+ + | Component | Value | Ref Range | + +--------+ + | BLOOD GLUCOSE, POC | 68 (L) | 70 - 99 mg/dL | + +--------+ + + + + | Specimen | Performing Laboratory | + + + | | [facility], POINT OF CARE TESTS [address] | | | [place] [address] | + + + SURGICAL PATHOLOGY (06/12/2018 [...] medical record number | | | | [id number]. A. Knee, right knee r/o | | [...] gross diagnosis | | | | only. (EH) | | + + + + | ANCILLARY | Analyte specific reagents are used in many | | | INFORMATION | laboratory tests necessary for standard | | | | medical care. This test was developed and | | | | its performance characteristics determined | | | | by [employer]. It has not been | | | [...] + + | Tissue - Knee | [facility] DEPARTMENT OF PATHOLOGY [address] | | | [place] [address] | + + + CAPILLARY BLOOD GLUCOSE [...] LOZADA, POINT OF CARE TESTS [address] | | | [place] [address] | + + + CAPILLARY BLOOD GLUCOSE (NO CHG), POC (06/12/2018 9:24 AM) + +-------+ + | Component | Value | Ref Range | + +-------+ + | BLOOD GLUCOSE, POC | 85 | 70 - 99 mg/dL | + +-------+ + + + + | Specimen | Performing Laboratory | + + + | | [facility], POINT OF CARE TESTS [address] | | | [place] [address] | + + + CAPILLARY BLOOD GLUCOSE (NO CHG), POC (06/12/2018 9:02 AM) + +--------+ + | Component | Value | Ref Range | + +--------+ + | BLOOD GLUCOSE, POC | 61 (L) | 70 - 99 mg/dL | + +--------+ + + + + | Specimen | Performing Laboratory | + + + | | [facility], POINT OF CARE TESTS [address] | | | [place] [address] | + + + CARDIOLOGY (06/12/2018)X-RAY KNEE 2 VIEWS RIGHT (06/11/2018 6:58 PM) + + + | Specimen | Performing Laboratory | + + + | | [facility] RADIOLOGY VOICE RECOGNITION 2 | + + + + + | Narrative | + + | EXAM: KNEE 2 VIEWS RIGHT HISTORY: knee pain. History of gout. Total knee | | arthroplasty in 2013. 2 weeks of knee [...] | + + + | Blood | [facility], CORE [address] [place] [address] RD | | | [place] [address] | + + + + + | [...] | + + + | Blood | [facility], CORE [address] | | | [place] [address] | + + + BLOOD BANK HOLD [...] | + + + | Blood | [facility], TRANSFUSION MEDICINE [address] | | | [place] [address] | + + + RAINBOW HOLD TUBE - BLUE TOP (06/11/2018 6:12 PM) + + + | Specimen | Performing Laboratory | + + + | Blood | [facility], CORE [address] [place] [address] | | | [place] [address] | + + + COMPLETE METABOLIC SET [...] 39 (L) | >60 mL/min | | CONGOLESE | | | + + + + | EGFR NON | 32 (L) | >60 mL/min | | -CONGOLESE | | | + + + + [...] | + + + | Blood | [facility], CORE [address] [facility] [address] | | | [place] [address] | + + + + + | [...] | ------ CBC AND AUTO | | DIFF[[id number]] Abnormal Final | | result Please view [...] | + + + | Blood | [facility], CORE [address] | | | [place] [address] | + + + + + | [...] | + + + | Blood | [facility], CORE [address] | | | [place] [address] | + + + + + | [...] | + + + | Blood | [facility], [facility] [address] | | | [place] [address] | + + + + + | [...] | + + + | Blood | [facility], CORE [address] | | | [place] [address] | + + + + + | Narrative | + + | Conditions such as cold agglutinins, anemia, hemolysis, icterus or lipemia may affect | | sedimentation rate. | + + ED INFORMATION EXCHANGE (06/11/2018 6:04 PM) + + + | Specimen | Performing Laboratory | + + + | | [facility] [address] | | | [address] [place] [address] | + + + + + | Narrative | + + | [id number] This patient has registered at the [facility] and | | [facility] Emergency Department For more information visit: | | [email or web address] Security | | Events No recent Security Events currently on file ED Care Guidelines There are | | currently no ED Care Guidelines in DANIEL for this patient. Please check your facility's | | medical records system. Recent Emergency Department Visit Summary Admit Date | | Facility City State Type Major Type Diagnoses or Chief Complaint Jun 11, 2018 [place] | | [facility] [place] Emergency Emergency 10,800. REF | | Recent Inpatient Visit Summary No recorded inpatient visits. E.D. Visit | | Count (12 mo.) Facility Visits [facility] 1 Total 1 | | Note: Visits indicate total known visits. PDMP Report Rx Details (6 Mo.) Fill | | Date Drug Description Qty. Prescriber MED 2018-04-28 ACETAMINOPHEN-COD #3 TABLET 60 | [...] for additional information. 2018 [employer] | | [facility] - [place], [place] - [email or web address] | + + + + | Procedure Note | + + | Service Account, Rtf Results Inbound - 06/11/2018 6:06 PM PDT Formatting of this | | note may be different from the original.[id number] patient has | | registered at the [facility] Emergency Department For more | | information visit: | | [email or web address] Security | | EventsNo recent Security Events currently on fileED Care GuidelinesThere are currently | | no ED Care Guidelines in DANIEL for this patient. Please check your facility's medical | | records system.Recent Emergency Department Visit SummaryAdmit Date Facility [facility] | | Type Major Type Diagnoses or Chief Complaint Jun 11, 2018 [facility] | | [facility] [place] Emergency Emergency 10,800. REF Recent Inpatient Visit | | SummaryNo recorded inpatient visits. E.D. Visit Count (12 mo.)Facility Visits [place] | | [facility] 1 Total 1 Note: Visits indicate total known visits. PDMP | | ReportRx Details (6 Mo.)Fill Date Drug Description Qty. Prescriber CS MED 2018-04-28 | | ACETAMINOPHEN-COD #3 TABLET 60 GILMA CULVER MD 3 2018-03-02 ACETAMINOPHEN-COD #3 | | TABLET 60 LOLI STEVENS MD 3 2018-01-27 ACETAMINOPHEN-COD #3 TABLET 60 LOLI STEVENS [...] | aforementioned facilities for additional information. 2018 [employer] | | [facility], [place] - [email or web address] | |Facility Visits | |[facility] 1 | |Total 1 | |Note: [...] aforementioned facilities for additional information. | |2018 [facility] 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 | [...] mg, intramuscular, | | | NEEDED, Starting [facility] 06/11/18 at | | | 2306, Until [...] | | | | | Fri06/12/18 at 0800, Until | | | | [...] +-------+ +--------+---+---+ +---+---+ | | | +---+---+ +---+ | | +---+ + +--------+ +--------+------+------+ | Medication Order | MAR | Action | Dose | Rate | Site | | | Action | Date | | | | + +--------+ +--------+------+------+ | allopurinol (ZYLOPRIM) tablet | Given | | 300 mg | | | | 300 mg 300 mg, oral, DAILY, | | 8 13:16 | | | | | First dose on 06/13/18 at | | PDT | | | | | 1200, Until Discontinued | | | | | | + +--------+ +--------+------+------+ +---+---+ | | | +---+---+ + +---------+ +-----+---+---+ | ceFAZolin IV 2 gram in dextrose | New Bag | | 2 g | | | | (RTU) 2 g, intravenous, EVERY 8 | | 8 22:29 | | | | | HOURS, First dose on 06/15/18 | | PDT | | | | [...] +-----+-------+---+ +---+---+ | | | +---+---+ + +-------+ [...] +-------+ +------+---+---+ +-------+ +------+---+---+ | Given | | 5 mg | | | | | 8 20:54 | | | | | | PDT | | | | +-------+ +------+---+---+ +---+---+ | | | +---+---+ in this encounter
--- OUTSIDE RECORDS SUMMARY | ~2018-06-17 | XMS | Encounter Summary ---
Demographics + + + | Address | [address] | | | [place] [address] | + + + | Home Phone [...] Team Providers + +------+ + | Care Technical Coordinator Name | Role | Phone | [...] Diseases at [facility] | RN [address] | (OPAT); Infectious | | | | Floor [address] | [facility] | disease | | | | [facility] | [place], [place] | | | | | Mailcode: L457 | [address] | | | | | [facility] | | | | | | [place], [place] | | | | | | [address] | | | | | | [phone] | | | +--------+ + + + [...] [address] | | | | | | [place] | | | | | | [address] | | | | | | [phone] | | | | | | | | +--------+---------+ + + + as of this encounter Visit Diagnoses Not on filein this encounter"
--- OUTSIDE RECORDS SUMMARY | ~2018-06-17 | XMS | Encounter Summary ---
Demographics + + + | Address | [address] | | | [place] [address] | + + + | Home Phone [...] Author + + + | Author | [facility] | + + + | Organization | [facility] | + + + | Address | Unknown | + + + | Phone | Unavailable | + + + Support + + +---------+ + | Name | Relationship | Address | Phone | + + +---------+ + | FATUMA MAS | ECON | Unknown | | + + +---------+ + Care Team Providers + +------+ + | Care Coal Picker Name | Role | Phone | + [...] | | | | | [place], | | | | | | [place] [address] | | | +--------+--------+ + + + [...] [address] | | | | | | [place], [place] | | | | | | [address] | | | | | | [phone] | | | | | | | | +--------+---------+ + + + as of this encounter Visit Diagnoses Not on filein this encounter"
--- OUTSIDE RECORDS SUMMARY | ~2018-06-17 | XMS | Encounter Summary ---
Demographics + + + | Address | [address] | | | [place] [address] | + + + | Home Phone [...] Team Providers + +------+ + | Care Wound Treatment Rn Name | Role | Phone | + +------+ + | Gilberto Estrada MD | PCP | | + +------+ + Encounter Details +--------+ + + + + | Date | Type | Department | Care Team | Description | +--------+ + + + + | 06/12/ | Procedure | 6A Intra Op [facility] | | | | 2017 | Pass | [facility] | | | | | | Admitting Desk | | | | | | Located on the 9th | | | | | | floor [address] [facility] | | | | | | [facility] | | | | | | [place], [place] | | | | | | [address] | | | +--------+ + + + [...] Rd | | | | | | [place], [place] | | | | | | [address] | | | | | | [phone] | | | | | | | | +--------+---------+ + + + as of this encounter Visit Diagnoses Not on filein this encounter"
--- OUTSIDE RECORDS SUMMARY | ~2018-06-17 | XMS | Encounter Summary ---
Demographics + + + | Address | [address] | | | [place] [address] | + + + | Home Phone [...] Providers + +------+ + | Care Chief Operating Officer Name | Role | Phone | [...] | | | [address] | [facility] | | | | | [facility] | [place], [place] | | | | | [place] [address] | [address] | | | | | [phone] | [phone] | | | | | | | [...] by | | | | | | [id number] | mouth once daily. | | | [...] mouth. | | | | | | 0-oxl-xmn-fish oil | | | | | | [...] | | 2017 | Visit | | [address] | | | | | | [address] | | | | | | [place], [place] | | | | | | [address] | | | | | | [phone] | | | | | | | [...]
--- OUTSIDE RECORDS SUMMARY | ~2018-06-17 | XMS | Clinical Summary ---
Demographics + + + | Address | [address] | | | [place] [address] | + + + | Home Phone [...] Team Providers + +------+ + | Care Secondary Teacher Name | Role | Phone | [...] | 07/22/2017 | + + + | [facility] current use of anticoagulant - COUMADIN | 07/22/2017 | + + + | Beta Blockers - Daily Use | 07/22/2017 | + + + | Diabetes mellitus, type II - ORAL Control | 07/22/2017 | + + + | Wisio-ub-Fxrryt lying flat | 07/22/2017 | + + [...] +--------+ +---------+ | CIGNA | CIGNA | [phone] | Indemn | [phone] | | | | MDCR | | ity | [phone] | | | | SUPPLE | | | | | | | MENT | | | | | | | SOLUTI | | | | | | | ONS | | | | | + +--------+ +--------+ +---------+ | MEDICARE | MEDICA | [id number] | Medica | [phone] | | | RE | | [...] | Self | [birth year] Home: | [address] | | | al/Fam | | 1940 | [phone] | [place] [address] | | | afshan | | | [address] | | + +--------+ +--------+ + +
--- OUTSIDE RECORDS SUMMARY | ~2018-06-17 | XMS | Encounter Summary ---
Demographics + + + | Address | [address] | | | [place] [address] | + + + | Home Phone [...] + +------+ + | Care Provider Network Manager Name | Role | Phone | [...] | | | 2018 | Event | [facility] | [address] [facility] | | | | | Admitting Desk | [facility] | | | | | Located on the 9 | [place], [place] | | | | | floor [address] [place] [address] | [address] | | | | | [facility] | [phone] | | | | | [place], [place] | | | | | | [address] | | | +--------+ + + + [...] Line | Standard; Left; 20g; 06/12/18; | STOCK PITCHER | | | | 1617; Per order | | | +--------+ + + + | Periph | 06/12/18; 1323; Right; Wrist; 20 | 06/12/18 1323 by | 06/14/181999 by | | eral | g; 06/14/181999 | Robel Page, | Gabriel Zapata RN | | IV | | STOCK PITCHER | | +--------+ + + + | [...] | 2017 | Visit | | [address] | | | | | | [address] | | | | | | [place], [place] | | | | | | [address] | | | | | | [phone] | | | | | | | | +--------+---------+ + + + as of this encounter Results ANE ART LINE (06/12/2018 1:52 PM) + + | Narrative | + + | Robel Page CRNA 06/12/2018 1:57 PM Procedure ART LINE Procedure | | Information Inserted: Before Induction 5 minutes to perform. Type Catheter: Arrow kit | | Indications: Beat to beat blood pressure monitoring Location Performed: [place] | | Informed Consent: Included in anesthesia consent Protective Barrier: Cap, Mask and | | Sterile Gloves Skin Prep: Chloraprep Draped: Partially draped Anesthesia Method: | | Local infiltration w/lidocaine Insertion side: Left Access device: 20g Line | | secured by:Dressing Applied and StatLock Assessment Number of attempts: 1st | | Complications: None Assessment: Catheter connected to pressure line and flushed, | | catheter manually flushed, Tolerated procedure well and Perfusion checked distal to | | catheter Attending physically present Attending Name: PRINCESS WARD Performed by | | AGUSTIN VELEZ Name: ROBEL PAGE Performed by Laureen GRAHAM. | + + ANE LMA (06/12/2018 1:48 PM) + + | Narrative | + + | Robel Page CRNA 06/12/2018 1:52 PM Procedure Reason for Intubation: | | For surgical procedure, Location Performed: [place] , Patient was preoxygenated Mask | | Ventilation Grade 1 - Ventilated by mask ETT SGA Atraumatic Placement: Yes | | LMA Type: Air-Q LMA Size: 4.5LMA Size: 4.5 LMA positive for Etco2 Breath | | Sounds Auscultated: Bilateral and equal Narrative Attending physically present | | Performed by Laureen GRAHAM. | + + in this encounter Visit [...] | | | | Starting 06/12/18 at 1255, | | | | | | | Until 06/12/18 [...] 12:05 | | | | | Starting Fri06/12/18 at 1205, | | PDT | | [...] 14:30 | | | | | Starting Fri06/12/18 at 1430, | | PDT | | | | | Until Fri06/12/18 at 1529 | | | | | | + +-------+ +------+---+---+ +---+---+ | | | +---+---+ + +-------+ +---------+---+---+ | PHENYLEPHrine 100 mcg/mL IV | Given | | 100 mcg | | | | syringe INTRAPROCEDURE PRN, | | 8 13:21 | | | | | Starting Fri06/12/18 at 1318, | | PDT | | [...]
--- OUTSIDE RECORDS SUMMARY | ~2018-06-17 | XMS | Encounter Summary ---
Demographics + + + | Address | [address] | | | [place] [address] | + + + | Home Phone | | + + + | Preferred Language | Unknown | + + + | Marital Status | | + + + | Alevism Affiliation | 1077 | + + + | Race | Unknown | + + + | Ethnic Group | Unknown | + + + Author + + + | Author | [facility] [facility] | + + + | Organization | [facility] [facility] | + + + | Address | Unknown | + + + | Phone | Unavailable | + + + Support + + +---------+ + | Name | Relationship | Address | Phone | + + +---------+ + | Beth Mas | ECON | Unknown | | + + +---------+ + Care Team Providers + +------+ + | Care Lead Recreation Assistant Name | Role | Phone | [...] | | | | | [place] [address] | | | | | | [phone] | | | +--------+ + + + [...] [address] | | | | | | [place] [address] | | | | | | [phone] | | | | | | | [...] of | | | | | insulin ([facility]) CKD | | | | | (chronic kidney | | | | | disease), stage III | | | | | Secondary | | | | | hyperparathyroidism | | | | | ([facility]) | | + +--------+ + + | [...] | hyperparathyroidism | | | | | ([facility]) | | + +--------+ + + | [...]
--- OUTSIDE RECORDS SUMMARY | ~2018-06-17 | XMS | Clinical Summary ---
Demographics + + + | Address | [address] | | | [place] [address] | + + + | Home Phone [...] Team Providers + +------+ + | Care Tree Inspector Name | Role | Phone | + +------+ + | Gilma Culver MD | PP | | + +------+ + Source Comments WHITNEY is fully live on both [facility] Ambulatory and [facility] InPatient.[facility] Allergies + + + + + + | Active Allergy | Reactions | Severity | Noted | Comments | | | | | Date | | + + + + + + | Nsaids | Renal Failure | High | 06/14/20 | Avoid per | | (Non-Steroidal | | | 18 | Social Worker Assistant | | Anti-Inflammatory | | | | [...] | | | | Activ | | 6-qbm-irw-fish oil | | | | | | e | | (FISH OIL) | | | | | | | | 100-160-1,000 mg | | | | | | | | oral capsule | | | | | | | + + + +---------+------+------+-------+ | antiox.mv | Take 1 capsule by | | | | | Activ | | no.34-ptod1x-[id number]-xnj-kjl | mouth once daily. | | | [...] | | + + + +---------+------+------+-------+ | ceFAZolin | Inject 2,000 mg into | 180 g | 1 | 08/2 | 09/2 | Activ | | injection recon | the vein (IV) every | | | 2/ | / | e | | solnIndications: | eight hours. 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 | | | OSA12. Gout | | [...] | | | placement | | | 2015, | | | Afib, HLD, | | [...] | | | St[facility] | | | [facility] | | | swing bed | | [...] | | Anemia: Ac | | | aniak to | | | subacute, | | [...] | History of | | | DVT: Wall | | | ked DVT in | [...] | | | Encounters: | | | 06/15/18 | | | 84.1 kg | | | (185 lb 6.5 | | | oz) | | | Pertinent | | | Findings:La | | | bs at | | | discharge: | | | sodium 138, | | | potassium | | | 4, | | | creatinine | | | 1.73INR | | | 1.78Micro: | | | 8/ Knee | | | cx: Staph | [...] | SR 500 mg | | | [id number] | | | y known as: | [...] | CR 60 mg | | | Ol99Sozshra | | | y known as: | [...] | | IP ST | | | [facility] . | | | Specialty: | | | Acute | | | Care | | | HospitalCon | | | tact | | | information | | | [address] | | | [address] | | | n [place] | | | [address] | | | [phone] | | | [place] | | | Location: | | | [facility] | [facility] | | | swing bed | | | unitAppoint | | | ments: | | | Friess on | | | 07/23/18 at | | | 10:40am. | | | The | | | discharge | | | note was | | | forwarded | | | to the PCP | | | for review. | | | | | | Discharging | | | Physician: | | | Zack | | | MD Timoteo | | | Suggested | | | CPT: 23266 | | | Discharge | | | [...] | 06/11/ | Emergency | | Sandoval Hyde, | | | 2017 | | | MD | | +--------+ +---+ +-----+ | 06/11/ | Intake | | | N/A | | 2017 | | | | | +--------+ +---+ [...] + + + + Plan of Treatment +--------+---------+ + + + | Date | Type | Specialty | Care Team | Description | +--------+---------+ + + + | 07/23/ | Office | | Sandoval Hyde, | | | 2018 | Visit | | [address] | | | | | | [address] | | | | | | [place], [place] | | | | | | [address] | | | | | | [phone] | | | | | | | | +--------+---------+ + + + + + + + [...] Right: | MARIALUISA | | 11/26/ | 1130-G | | 13mm Implanted: Qty: 1 on [...] time period is included. + +---------+ + | Component | Value | Ref Range | + +---------+ + | BLOOD GLUCOSE, POC | 135 (H) | 70 - 99 mg/dL | + +---------+ + + + + | Specimen | Performing Laboratory | + + + | | [facility], POINT OF CARE TESTS [address] | | | [place] [address] | + + + INR (06/17/2018 3:59 AM)Only the most recent of 5 results within the time period is includ ed. + + + + | Component | Value | Ref Range | + + + + | INR | 1.78 (H) | 0.90 - 1.20 INR | + + + + + + + | Specimen | Performing Laboratory | + + + | Blood | [facility], CORE [address] | | | [place] [address] | + + + + + | [...] period is included. + + + + | Component | [...] 46 (L) | >60 mL/min | | ENGLISH | | | + + + + | EGFR NON | 38 (L) | >60 mL/min | | -ENGLISH | | | + + + + [...] | + + + | Blood | [facility], CORE [address] | | | [place] [address] | + + + + + | [...] | | muscle-wasting diseses | + + X-RAY PORTABLE CHEST 1 VIEW (06/16/2018 4:29 PM) + + + | Specimen | Performing Laboratory | + + + | | [facility] VOICE RECOGNITION 2 | + + + + + | Narrative | + + | EXAM: KS CHEST 1 VIEW HISTORY: PICC placement. Prosthetic [...] Note | + + | Service Account, AnibalJLGOV Res In Interface - 06/16/2018 4:44 PM PDT EXAM: KS CHEST 1 | | VIEW HISTORY: PICC [...] Frequent lab draws | | Procedure location: Unit:[facility] Room: 14 Providers: Attending name: [...] verifies | | correct patient, procedure, equipment, net application support specialist and site/side marked as required. [...] Arm area Basilic vein. Catheter lot number: [id number] with a length of 55 cm | [...] | See procedure note. | + + CBC AND AUTO DIFF (06/15/2018 7:04 AM)Only the most recent of 2 results within the time ajay espinal is included. + + + + | Component | [...] | + + + | Blood | [facility], CORE [address] [address] | | | [place] [address] | + + + + + | [...] + + CBC, WITH DIFFERENTIAL (06/15/2018 7:04 AM)Only the most recent of 2 results within the ti me period is included. + + + | Specimen | Performing Laboratory | + + + | Blood | | + + + + + | Narrative | + + | The following orders were created for panel order CBC, WITH DIFFERENTIAL. | | Procedure | | Abnormality Status | | --------- | | ------ CBC AND AUTO | | DIFF[[id number]] Abnormal Final | | result Please view results for these tests on the | | individual orders. | + + SODIUM TOTAL, URINE (06/15/2018 [...] | + + + | Urine | [facility], CORE [address] | | | [place] [address] | + + + + + | Narrative | + + | Reference range based on 24 hour collection time. Patient results are calculated | | from actual collection time. | + + EOSINOPHILS, URINE (SPOT) (06/15/2018 6:49 AM) + +-------+ + | Component | Value | Ref Range | + +-------+ + | URINE EOSINOPHILS | <1 | <1 % | + +-------+ + + + + | Specimen | Performing Laboratory | + + + | Urine | [facility], CORE [address] [facility] | | | [place] [address] | + + + UREA NITROGEN, URINE [...] + + + | Urine | [facility], CORE [address] [place] [address] | | | [place] [address] | + + + + + | [...] | + + + | Urine | [facility], [place] [address] | | | [place] [address] | + + + + + | Narrative | + + | Reference range based on 24 hour collection time. Patient results are calculated | | from actual collection time. | + + CARDIOLOGY (06/15/2018)Only the most recent of 2 results within the time period is included .VANCOMYCIN, TROUGH (06/14/2018 6:00 PM) + +-------+ + | Component | Value | Ref Range | + +-------+ + | VANCOMYCIN, TROUGH | 12.9 | 10.0 - 20.0 ug/mL | + +-------+ + + + + | Specimen | Performing Laboratory | + + + | Blood | [facility], CORE [address] | | | [place] [address] | + + + + + | Narrative | + + | Please draw vancomycin trough immediately prior to 18:00 dose on 06/14/18. Hold dose | | until Pharmacist confirms level is appropriate. Page [phone] or [phone] with | | questions. Thank you. | + + CBC (HEMOGRAM) ONLY (06/14/2018 5:24 AM)Only the most recent of 3 results within the time period is included. + + + + | Component | [...] | + + + | Blood | [facility], CORE [address] | | | [place] [address] | + + + + + | Narrative | + + | New reference ranges for MCV, MCHC, PLT, IG% and IG# effective 03/05/2018 | + + COMPLETE METABOLIC SET (NA,K,CL,CO2,BUN,CREAT,GLUC,CA,AST,ALT,BILI TOTAL,ALK PHOS,ALB,PROT TOTAL) (06/14/2018 5:24 AM)Only the most recent of 5 results within the time period is incl uded. + + + + | Component | [...] 37 (L) | >60 mL/min | | ENGLISH | | | + + + + | EGFR NON | 31 (L) | >60 mL/min | | -ENGLISH | | | + + + + [...] | + + + | Blood | [facility], CORE [address] | | | [place] [address] | + + + + + | [...] | | muscle-wasting diseses | + + CBC ONLY (06/14/2018 5:24 AM)Only the most recent of 3 results within the time period is i ncluded. + + + | Specimen | Performing Laboratory | + + + | Blood | | + + + + + | Narrative | + + | The following orders were created for panel order CBC ONLY. | | Procedure | | Abnormality Status | | --------- | | ------ CBC (HEMOGRAM) | | ONLY[[id number]] Abnormal Final | | result Please view results for these tests on the | | individual orders. | + + 12 LEAD ECG (06/13/2018 10:28 [...] + | ECG IMPRESSION | Borderline prolonged KS interval | | + + + + [...] Laboratory | + + + | | [facility] [address] [place] [address] | | | [place] [address] | + + + MAGNESIUM, PLASMA (06/12/2018 10:24 PM) + +-------+ + | Component | Value | Ref Range | + +-------+ + | MAGNESIUM,PLASMA | 1.8 | 1.6 - 2.6 mg/dL | + +-------+ + + + + | Specimen | Performing Laboratory | + + + | Blood | [facility], CORE [address] [address] | | | [place] [address] | + + + + + | Narrative | + + | Reference range change effective 06/10/17. | + + CONFIRMATORY ABO/RH (06/12/2018 10:23 PM) + + + + | Component | Value | Ref Range | + + + + | ABO Group | A | | + + + + | Rh Type | Positive | | + + + + + + + | Specimen | Performing Laboratory | + + + | Blood | [facility], TRANSFUSION MEDICINE [address] | | | [place] [address] | + + + ANTIBODY SCREEN (06/12/2018 10:23 PM) + + + + | Component | Value | Ref Range | + + + + | Antibody Screen | Negative | | + + + + + + + | Specimen | Performing Laboratory | + + + | Blood | [facility], TRANSFUSION MEDICINE [address] | | | [place] [address] | + + + ABO & RH TYPE (06/12/2018 10:23 PM) + + + + | Component | Value | Ref Range | + + + + | ABO Group | A | | + + + + | Rh Type | Positive | | + + + + + + + | Specimen | Performing Laboratory | + + + | Blood | [facility], TRANSFUSION MEDICINE [address] [place] [address] | | | [place] [address] | + + + PROCEDURE NOTE (06/12/2018 10:09 PM)Only the most recent of 2 results within the time perio d is included.PHOSPHORUS, PLASMA (06/12/2018 4:27 PM) + +-------+ + | Component | Value | Ref Range | + +-------+ + | PHOSPHORUS, PLASMA | 3.7 | 2.4 - 4.7 mg/dL | | (LAB) | | | + +-------+ + + + + | Specimen | Performing Laboratory | + + + | Blood | [facility], CORE [address] [facility] | | | [place] [address] | + + + SURGICAL PATHOLOGY (06/12/2018 [...] | | | only) Case seen by:Christina Signletary MD | | | | | | [...] medical record number | | | | [id number]. A. Knee, right knee r/o | | [...] characteristics determined | | | | by [facility]. It has not been | | | [...] + + | Tissue - Knee | [facility] DEPARTMENT OF PATHOLOGY [address] | | | [place] [address] | + + + ANE ART LINE (06/12/2018 [...] Performed by Laureen GRAHAM. | + + X-RAY KNEE 2 VIEWS RIGHT (06/11/2018 6:58 PM) + + + | Specimen | Performing Laboratory | + + + | | [facility] RAD[facility] VOICE RECOGNITION 2 | + + [...] MD 06/11/2018 8:14 PM | + + RAINBOW HOLD TUBE - RED TOP (06/11/2018 6:12 PM) + + + | Specimen | Performing Laboratory | + + + | Blood | [facility], CORE [address] | | | [place] [address] | + + + RAINBOW HOLD TUBE - BLUE TOP (06/11/2018 6:12 PM) + + + | Specimen | Performing Laboratory | + + + | Blood | [facility], CORE [address] | | | [place] [address] | + + + BLOOD BANK HOLD [...] | + + + | Blood | [facility], TRANSFUSION MEDICINE [address] | | | [place] [address] | + + + C-REACTIVE PROTEIN (06/11/2018 6:12 PM) + + + + | Component | Value | Ref Range | + + + + | C-REACTIVE PROTEIN | 143.0 (H) | <10.0 mg/L | + + + + + + + | Specimen | Performing Laboratory | + + + | Blood | [facility], CORE [address] [facility] [address] | | | [place] [address] | + + + + + | Narrative | + + | New method, new reference range and new reporting units as of 03/30/2014. | + + APTT (ACT. PART. THROMBO TIME) (06/11/2018 6:12 PM) + + + + | Component | Value | Ref Range | + + + + | APTT | 36.5 (H) | 26.0 - 36.0 seconds | + + + + + + + | Specimen | Performing Laboratory | + + + | Blood | [facility], CORE [address] | | | [place] [address] | + + + + + | Narrative | + + | APTT values for monitoring heparin therapy may be affected by specimens | | processed >1 hour after collection. APTT Therapeutic | | Range: (75 - 120) sec Heparin levels of | | 0.35 - 0.7 U/mL | + + SEDIMENTATION RATE (06/11/2018 6:12 PM) + +--------+ + | Component | Value | Ref Range | + +--------+ + | SEDIMENTATION RATE | 87 (H) | 0 - 20 mm/hr | + +--------+ + + + + | Specimen | Performing Laboratory | + + + | Blood | [facility], CORE [address] [facility] | | | [place] [address] | + + + + + | Narrative | + + | Conditions such as cold agglutinins, anemia, hemolysis, icterus or lipemia may affect | | sedimentation rate. | + + ED INFORMATION EXCHANGE (06/11/2018 6:04 PM) + + + | Specimen | Performing Laboratory | + + + | | [facility] [address] | | | [address] [place] [address] | + + + + + | Narrative | + + | [id number] This patient has registered at the [facility] and | [facility] Emergency Department For more information visit: | | [email or web address] Security | | Events No recent Security Events currently on file ED Care Guidelines There are | | currently no ED Care Guidelines in DANIEL for this patient. Please check your facility's | | medical records system. Recent Emergency Department Visit Summary Admit Date | | Facility City State Type Major Type Diagnoses or Chief Complaint Jun 11, 2018 [facility] | | [facility] [place] Emergency Emergency 10,800. REF | | Recent Inpatient Visit Summary No recorded inpatient visits. E.D. Visit | | Count (12 mo.) Facility Visits [facility] 1 Total 1 | | Note: Visits [...] for additional information. 2018 [employer] | | [employer]. - [place], [place] - [email or web address] | + + + + | Procedure Note | + + | Service Account, Rtf Results Inbound - 06/11/2018 6:06 PM PDT Formatting of this | | note may be different from the original.[id number] patient has | | registered at the [facility] [place] Emergency Department For more | | information visit: | | [email or web address] Security | | EventsNo recent Security Events currently on fileED Care GuidelinesThere are currently | | no ED Care Guidelines in DANIEL for this patient. Please check your facility's medical | | records system.Recent Emergency Department Visit SummaryAdmit Date Facility [facility] State | | Type Major Type Diagnoses or Chief Complaint Jun 11, 2018 [facility] | | [facility] [place] Emergency Emergency 10,800. REF Recent Inpatient Visit | | SummaryNo recorded inpatient visits. E.D. Visit Count (12 mo[address] [facility] | | [facility] 1 Total 1 Note: Visits indicate [...] | aforementioned facilities for additional information. 2018 [employer] | | [employer]. - [place], [place] - [email or web address] | |Facility Visits | |[facility] 1 | |Total 1 | |Note: Visits [...] aforementioned facilities for additional information. | |2018 [employer] - [place], [place] - [email or web address] | + + from Last 3 Months Insurance [...] | MEDICA | xxxxxxxxxxx | Medica | [phone] | [address] | | | RE A & | | re | [phone] | [place] [address] | | | B | | | [...] | Self | [birth year] | Home: | [address] | | | al/Jamin | | 1940 | [phone] | [place] [address] | | | afshan | | | [address] | | + +--------+ +--------+ + +
[~2018-06-17 09:38] MED LIST: ALLOPURINOL300 MG PO; AMARYL4 MG PO; CARVEDILOL3.125 MG PO; COLCRYS0.6 MG PO; COUMADIN2.5 MG PO; FISH OIL 1,0001 EAC3 PO; FOLIC ACID1 MG PO; ICAPS TABLET1 EACH PO; ISOSORBIDE MONO30 MG PO; LASIX20 MG PO; METFORMIN HCL500 MG PO; METOLAZONE2.5 MG PO; POTASSIUM CHLO10 MEQ PO; VITAMIN D1000 UNIT PO; ZOCOR40 MG PO
[2018-06-18] MEDS ORDERED: WARFARIN SODIUM5 MG PO (08:42)
[2018-06-18] MEDS ORDERED: DULCOLAX10 MG PR (09:14)
[2018-06-18] MEDS ORDERED: COREG12.5 MG PO (09:15)
[2018-06-18] MEDS ORDERED: FLONASE ALLERG9.9 ML NAS (09:19)
[2018-06-18] MEDS ORDERED: FOLIC ACID0.4 MG PO (09:20)
[2018-06-18] MEDS ORDERED: DAILY MULTIPLE1 EACH PO (10:38)
[2018-06-18] MEDS ORDERED: MIRALAX17 GM PO (10:39)
[2018-06-18] MEDS ORDERED: SENNA-DOCUSATE1 EAC1 PO (10:40)
[2018-06-18] MEDS ORDERED: DEMADEX20 MG PO (10:41)
[2018-06-18] MEDS ORDERED: ISOSORBIDE MONO60 MG PO (11:08)
[2018-06-18] MEDS ORDERED: MAG-OXIDE400 MG PO (11:09)
[2018-06-18] MEDS ORDERED: METHOTREXATE2.5 MG PO (11:10)
[2018-06-18] MEDS ORDERED: ADVAIR 250-501 EACH INH (11:14)
[2018-06-18] MEDS ORDERED: KLOR-CON M1010 MEQ PO (14:02)
[2018-06-18] MEDS ORDERED: COZAAR50 MG PO (14:04)
[2018-06-18] MEDS ORDERED: NIACIN500 M3 PO (14:06)
[2018-06-18] MEDS ORDERED: TYLENOL WITH C1 EACH PO (14:09)
--- NOTE | 2018-06-22 13:52 | EKG ---
[facility] [address] [place] [address] Signed Sinus rhythm with 1st degree AV block Left axis deviation Right bundle branch block T wave abnormality, consider lateral ischemia Abnormal ECG No previous ECGs available Confirmed by JENNIFER PACHECO MD ([id number]) on 06/22/2018 1:51:50 PM Electronically Signed By: JENNIFER PACHECO MD 06/22/18 1352 PATIENT NAME: MAXWELLJÚNIOR Electrocardiogram DATE OF : 36 PHYSICIAN: JENNIFER PACHECO MD REPORT #: [id number] REPORT IS CONFIDENTIAL AND NOT TO BE RELEASED WITHOUT AUTHORIZATION
[2018-06-23] MEDS ORDERED: LOSARTAN POTASS50 MG PO (09:41)
[2018-06-26] MEDS ORDERED: CEFAZOLIN2 GM/20 M1 IV (09:55)
== END 2018-06-26 12:10 | disposition home or self-care (01) | DRG 560 ==
LOC: MS 09:38
PROVIDERS: ADMIT Student in an Organized Health Care Education/Training Program
DX: T84.53XA Infection and inflammatory reaction due to internal right knee prosthesis, initial encounter (principal); I13.0 Hypertensive heart and chronic kidney disease with heart failure and stage 1 through stage 4 chronic kidney disease, or unspecified chronic kidney disease; I50.22 Chronic systolic (congestive) heart failure; I25.10 Atherosclerotic heart disease of native coronary artery without angina pectoris; M06.9 Rheumatoid arthritis, unspecified; N18.3 Chronic kidney disease, stage 3 (moderate); I25.5 Ischemic cardiomyopathy; E78.5 Hyperlipidemia, unspecified; M10.9 Gout, unspecified; E11.22 Type 2 diabetes mellitus with diabetic chronic kidney disease; I48.91 Unspecified atrial fibrillation; T46.6X5A Adverse effect of antihyperlipidemic and antiarteriosclerotic drugs, initial encounter; Z79.4 Long term (current) use of insulin; Z79.01 Long term (current) use of anticoagulants; Z86.718 Personal history of other venous thrombosis and embolism
CPT/HCPCS: 36415; 80053; 85025; 85610; 93005; 93010; 97032; 97110; 97116; 97163; 97165; 97530; 97535; J0690; J1644; J1815

== ENCOUNTER 2018-07-13 22:14 | Emergency (ER) | payer MEDICARE, OTHER ==
[~2018-07-13] VITALS: Ht 170.2 cm; Wt 88.0 kg
--- OUTSIDE RECORDS SUMMARY | ~2018-07-13 | XMS | Encounter Summary ---
Demographics + + + | Address | [address] | | | [place] [address] | + + + | Home Phone | | + + + | Preferred Language | Unknown | + + + | Marital Status | | + + + | Islam Affiliation | 1077 | + + + | Race | Unknown | + + + | Ethnic Group | Unknown | + + + Author + + + | Author | [facility] | + + + | Organization | [facility] | + + + | Address | Unknown | + + + | Phone | Unavailable | + + + Support + + +---------+ + | Name | Relationship | Address | Phone | + + +---------+ + | Beth Mas | ECON | Unknown | | + + +---------+ + Care Team Providers + +------+ + | Care Instruments Sales Representative Name | Role | Phone | + +------+ + | Cesar Christopher MD | PCP | | + +------+ + Encounter Details +--------+ + + + + | Date | Type | Department | Care Team | Description | +--------+ + + + + | 05/20/ | Lab | [facility] | Judith Zhnag | Essential | | 2018 | Requisition | [address] | I, 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 Instructor | hypertension with | | | | [place] [address] | | goal blood pressure | | | | [phone] | | less than 130/85; | | | | | | Type 2 diabetes | | | | | | mellitus without | | | | | | complication, | | | | | | without long-term | | | | | | current use of | | | | | | insulin (HCC); CKD | | | | | | (chronic kidney | | | | | | disease), stage III; | | | | | | Mixed | | | | | | hyperlipidemia | +--------+ + + + + Social History + +-------+ +--------+ + | Tobacco Use | Types | Packs/Day | Years | Date | | | | | Used | | + +-------+ +--------+ + | Former Smoker | Pipe | | 40 | Quit: 10/27/1997 | + +-------+ +--------+ + + +---+---+---+ | Smokeless Tobacco: | | | | | Never Used | | | | + +---+---+---+ + + +---------+ + | Alcohol Use | Drinks/We | oz/Week | Comments | | | ek | | | + + +---------+ + | Yes | 0 | 0.0 | rarely | | | Standard | | | | | drinks or | | | | | | | | | | equivalen | | | | | t | | | + + +---------+ + + + + | Sex Assigned at | Date Recorded | | | | + + + | Not on file | | + + + as of this encounter Plan of Treatment +--------+ + + + + | Date | Type | Specialty | Care Team | Description | +--------+ + + + + | 07/22/ | Documentati | Cardiology | | | | 2018 | on Only | | | | +--------+ + + + + | 09/24/ | Office | Nephrology | Gutierrez Prado, | | | 2018 | Visit | | [address] | | | | | | [address] | | | | | | [place] [address] | | | | | | [phone] | | | | | | | | +--------+ + + + + | 10/21/ | Documentati | Cardiology | | | | 2017 | on Only | | | | +--------+ + + + + as of this encounter Procedures + +--------+ + + + | Procedure Name | Priori | Date/Time | Associated Diagnosis | Comments | | | ty | | | | + +--------+ + + + | PROTEIN / CREATININE | Routin | 05/20/2018 | [facility] | Results for this | | RATIO, URINE | e | 8:42 AM | hypertension with | procedure are in the | | | | PDT | goal blood pressure | results section. | | | | | less than 130/85 | | | | | | Type 2 diabetes | | | | | | mellitus without | | | | | | complication, | | | | | | without long-term | | | | | | current use of | | | | | | insulin (HCC) CKD | | | | | | (chronic kidney | | | | | | disease), stage III | | | | | | Mixed | | | | | | hyperlipidemia | | + +--------+ + + + | PROTEIN, URINE, | Routin | 05/20/2018 | | Results for this | | RANDOM | e | 8:42 AM | | procedure are in the | | | | PDT | | results section. | + +--------+ + + + | CREATININE, URINE, | Routin | 05/20/2018 | | Results for this | | RANDOM | e | 8:42 AM | | procedure are in the | | | | PDT | | results section. | + +--------+ + + + | URINALYSIS (REFLEX | Routin | 05/20/2018 | [facility] | Results for this | | TO MICRO) | e | 8:41 AM | hypertension with | procedure are in the | | | | PDT | goal blood pressure | results section. | | | | | less than 130/85 | | | | | | Type 2 diabetes | | | | | | mellitus without | | | | | | complication, | | | | | | without long-term | | | | | | current use of | | | | | | insulin (HCC) CKD | | | | | | (chronic kidney | | | | | | disease), stage III | | | | | | Mixed | | | | | | hyperlipidemia | | + +--------+ + + + | CBC W/AUTO DIFF | Routin | 05/20/2018 | [facility] | Results for this | | (REFLEX TO MANUAL) | e | 8:21 AM | hypertension with | procedure are in the | | | | PDT | goal blood pressure | results section. | | | | | less than 130/85 | | | | | | Type 2 diabetes | | | | | | mellitus without | | | | | | complication, | | | | | | without long-term | | | | | | current use of | | | | | | insulin (HCC) CKD | | | | | | (chronic kidney | | | | | | disease), stage III | | | | | | Mixed | | | | | | hyperlipidemia | | + +--------+ + + + | PTH INTACT NO | Routin | 05/20/2018 | [facility] | Results for this | | CALCIUM | e | 8:21 AM | hypertension with | procedure are in the | | | | PDT | goal blood pressure | results section. | | | | | less than 130/85 | | | | | | Type 2 diabetes | | | | | | mellitus without | | | | | | complication, | | | | | | without long-term | | | | | | current use of | | | | | | insulin (HCC) CKD | | | | | | (chronic kidney | | | | | | disease), stage III | | | | | | Mixed | | | | | | hyperlipidemia | | + +--------+ + + + | MAGNESIUM | Routin | 05/20/2018 | Essential | Results for this | | | e | 8:21 AM | hypertension with | procedure are in the | | | | PDT | goal blood pressure | results section. | | | | | less than 130/85 | | | | | | Type 2 diabetes | | | | | | mellitus without | | | | | | complication, | | | | | | without long-term | | | | | | current use of | | | | | | insulin (HCC) CKD | | | | | | (chronic kidney | | | | | | disease), stage III | | | | | | Mixed | | | | | | hyperlipidemia | | + +--------+ + + + | RENAL FUNCTION PANEL | Routin | 05/20/2018 | [facility] | Results for this | | | e | 8:21 AM | hypertension with | procedure are in the | | | | PDT | goal blood pressure | results section. | | | | | less than 130/85 | | | | | | Type 2 diabetes | | | | | | mellitus without | | | | | | complication, | | | | | | without long-term | | | | | | current use of | | | | | | insulin (HCC) CKD | | | | | | (chronic kidney | | | | | | disease), stage III | | | | | | Mixed | | | | | | hyperlipidemia | | + +--------+ + + + in this encounter Results Protein, urine, random (05/20/2018 8:42 AM) + + + + + | Component | Value | Ref Range | Performed At | + + + + + | UR PROTEIN,RANDOM | 7Comment: NO NORMAL | mg/dL | [facility] | | | [facility] | | LABORATORY | + + + + + + + + + + | Performing | Address | City/State/Zipcode | Phone Number | | Organization | | | | + + + + + | [facility] | [address] | [place] [address] | [phone] | | LABORATORY | [address] | | | + + + + + Creatinine, urine, random (05/20/2018 8:42 AM) + + + + + | Component | Value | Ref Range | Performed At | + + + + + | UR CREAT,RANDOM | 43.0Comment: NO NORMAL | mg/dL | [facility] | | | [facility] | | LABORATORY | + + + + + + + + + + | Performing | Address | City/State/Zipcode | Phone Number | | Organization | | | | + + + + + | [facility] | [address] | [place] [address] | [phone] | | LABORATORY | [address] | | | + + + + + Protein / creatinine ratio, urine (05/20/2018 8:42 AM) + +-------+ + + | Component | Value | Ref Range | Performed At | + +-------+ + + | UR | 0.163 | | [facility] | | PROTEIN/CREATININE | | | LABORATORY | + +-------+ + + + + | Specimen | + + | Urine - Urine, | | Unspecified Source | + + + + + + + | Performing | Address | City/State/Zipcode | Phone Number | | Organization | | | | + + + + + | [facility] | [address] | [place] [address] | [phone] | | LABORATORY | [address] | | | + + + + + Urinalysis (reflex to micro) (05/20/2018 8:41 AM) + + + + + | Component | Value | Ref Range | Performed At | + + + + + | COLOR UA | YELLOW | | [facility] | | | | | LABORATORY | + + + + + | CLARITY | CLEAR | | [facility] | | | | | LABORATORY | + + + + + | Specific [place], UA | 1.008 | 1.002 - 1.030 | [facility] | | | | | LABORATORY | + + + + + | LEUKOCYTE ESTERASE | NEGATIVEComment: | NEG^NEGATIVE | [facility] | | | | | LABORATORY | + + + + + | NITRITE | NEGATIVE | NEG^NEGATIVE | [facility] | | | | | LABORATORY | + + + + + | UROBILINOGEN | NORMAL | <1.1 mg/dL | [facility] | | | | | LABORATORY | + + + + + | PROTEIN | NEGATIVE | NEG^NEGATIVE mg/dL | [facility] | | | | | LABORATORY | + + + + + | PH,URINE | 5.0 | 5.0 - 8.0 | [facility] | | | | | LABORATORY | + + + + + | BLOOD | NEGATIVE | NEG^NEGATIVE | [facility] | | | | | LABORATORY | + + + + + | KETONES | NEGATIVE | NEG^NEGATIVE mg/dL | [facility] | | | | | LABORATORY | + + + + + | BILIRUBIN | NEGATIVE | NEG^NEGATIVE | [facility] | | | | | LABORATORY | + + + + + | GLUCOSE | NEGATIVE | NEG^NEGATIVE mg/dL | [facility] | | | | | LABORATORY | + + + + + + + | Specimen | + + | Urine | + + + + + + + | Performing | Address | City/State/Zipcode | Phone Number | | Organization | | | | + + + + + | [facility] | [address] | [place] [address] | [phone] | | LABORATORY | [address] | | | + + + + + PTH intact no calcium (05/20/2018 8:21 AM) + + + + + | Component | Value | Ref Range | Performed At | + + + + + | PTH INTACT NO | 115.6 (H) | 12 - 88 pg/mL | [facility] | | CALCIUM | | | LABORATORY | + + + + + + + | Specimen | + + | Blood | + + + + + + + | Performing | Address | City/State/Zipcode | Phone Number | | Organization | | | | + + + + + | [facility] | [address] | [place] [address] | [phone] | | LABORATORY | [address] | | | + + + + + CBC W/Auto Diff (Reflex to Manual) (05/20/2018 8:21 AM) + + + + + | Component | Value | Ref Range | Performed At | + + + + + | WBC | 5.91 | 3.80 - 11.00 10*3/uL | [facility] | | | | | LABORATORY | + + + + + | RBC | 4.19 (L) | 4.20 - 5.70 10*6/uL | [facility] | | | | | LABORATORY | + + + + + | HGB | 13.3 | 13.2 - 17.0 g/dL | [facility] | | | | | LABORATORY | + + + + + | HCT | 38.5 (L) | 39.0 - 50.0 % | [facility] | | | | | LABORATORY | + + + + + | MCV | 91.9 | 80.0 - 100.0 fL | [facility] | | | | | LABORATORY | + + + + + | MCH | 31.7 | 27.0 - 34.0 pg | [facility] | | | | | LABORATORY | + + + + + | MCHC | 34.5 | 32.0 - 35.5 g/dL | [facility] | | | | | LABORATORY | + + + + + | RDW SD | 67.4 (H) | 37 - 53 fL | [facility] | | | | | LABORATORY | + + + + + | PLT | 139 (L) | 150 - 400 10*3/uL | [facility] | | | | | LABORATORY | + + + + + | MPV | 8.4 | fL | [facility] | | | | | LABORATORY | + + + + + | DIFF TYPE | AUTOMATED | | [facility] | | | | | LABORATORY | + + + + + | NEUTROPHILS | 62.45 | % | [facility] | | | | | LABORATORY | + + + + + | LYMPHOCYTES | 25.07 | % | [facility] | | | | | LABORATORY | + + + + + | MONOCYTES | 7.50 | % | [facility] | | | | | LABORATORY | + + + + + | EOSINOPHILS | 4.01 | % | [facility] | | | | | LABORATORY | + + + + + | BASOPHILS | 0.97 | % | [facility] | | | | | LABORATORY | + + + + + | NEUTROPHILS ABS | 3.69 | 1.90 - 7.40 10*3/uL | [facility] | | | | | LABORATORY | + + + + + | LYMPHOCYTES ABS | 1.48 | 1.00 - 3.90 10*3/uL | [facility] | | | | | LABORATORY | + + + + + | MONOCYTES ABS | 0.44 | 0.00 - 0.80 10*3/uL | [facility] | | | | | LABORATORY | + + + + + | EOSINOPHILS ABS | 0.24 | 0.00 - 0.50 10*3/uL | [facility] | | | | | LABORATORY | + + + + + | BASOPHILS ABS | 0.06 | 0.00 - 0.10 10*3/uL | [facility] | | | | | LABORATORY | + + + + + | MORPHOLOGY | 3+ | | [facility] | | | | | LABORATORY | + + + + + | MORPHOLOGY | ANISO | | [facility] | | | | | LABORATORY | + + + + + + + | Specimen | + + | Blood | + + + + + + + | Performing | Address | City/State/Zipcode | Phone Number | | Organization | | | | + + + + + | [facility] | [address] | [place] [address] | [phone] | | LABORATORY | [address] | | | + + + + + Magnesium (05/20/2018 8:21 AM) + +-------+ + + | Component | Value | Ref Range | Performed At | + +-------+ + + | MAGNESIUM | 2.3 | 1.7 - 2.4 mg/dL | [facility] | | | | | LABORATORY | + +-------+ + + + + | Specimen | + + | Blood | + + + + + + + | Performing | Address | City/State/Zipcode | Phone Number | | Organization | | | | + + + + + | [facility] | [address] | [place] [address] | [phone] | | LABORATORY | [address] | | | + + + + + Renal function panel (05/20/2018 8:21 AM) + + + + + | Component | Value | Ref Range | Performed At | + + + + + | SODIUM | 141 | 135 - 145 mmol/L | [facility] | | | | | LABORATORY | + + + + + | POTASSIUM | 3.6 | 3.5 - 4.9 mmol/L | [facility] | | | | | LABORATORY | + + + + + | CHLORIDE | 98 (L) | 99 - 109 mmol/L | [facility] | | | | | LABORATORY | + + + + + | CO2 | 35 (H) | 23 - 32 mmol/L | [facility] | | | | | LABORATORY | + + + + + | ANION GAP AGAP | 12 | 5 - 20 mmol/L | [facility] | | | | | LABORATORY | + + + + + | GLUCOSE | 173 (H) | 65 - 99 mg/dL | [facility] | | | | | LABORATORY | + + + + + | BUN | 40 (H) | 8 - 25 mg/dL | [facility] | | | | | LABORATORY | + + + + + | CREATININE | 1.8 (H) | 0.70 - 1.30 mg/dL | [facility] | | | | | LABORATORY | + + + + + | CALCIUM | 9.4 | 8.5 - 10.5 mg/dL | [facility] | | | | | LABORATORY | + + + + + | Albumin | 3.6 | 3.3 - 4.8 g/dL | [facility] | | | | | LABORATORY | + + + + + | PHOSPHORUS | 2.8 | 2.3 - 4.8 mg/dL | [facility] | | | | | LABORATORY | + + + + + | EGFR | 37 (L)Comment: GFR <60: | >60 mL/min/1.73_m2 | [facility] | | | CHRONIC KIDNEY DISEASE, | | LABORATORY | | | IF FOUND OVER A 3 MONTH | | | | | PERIOD. GFR <15: KIDNEY | | | | | FAILURE. FOR | | | | | AMERICANS, MULTIPLY THE | | | | | CALCULATED GFR BY 1.210. | | | | | This eGFR is calculated | | | | | using the MDRD IDUT | | | | | traceable equation. | | | + + + + + + + | Specimen | + + | Blood | + + + + + + + | Performing | Address | City/State/Zipcode | Phone Number | | Organization | | | | + + + + + | [facility] | [address] | [place] [address] | [phone] | | LABORATORY | [address] | | | + + + + + in this encounter Visit Diagnoses + + | Diagnosis | + + | Essential hypertension with goal blood pressure less than 130/85 | + + | Type 2 diabetes mellitus without complication, without long-term current use of insulin | | (HCC) | + + | CKD (chronic kidney disease), stage III | + + | Chronic kidney disease, Stage III (moderate) | + + | Mixed hyperlipidemia | + +"
--- OUTSIDE RECORDS SUMMARY | ~2018-07-13 | XMS | Encounter Summary ---
Demographics + + + | Address | [address] | | | [place] [address] | + + + | Home Phone | | + + + | Preferred Language | Unknown | + + + | Marital Status | Unknown | + + + | Sabianist Affiliation | PRO | + + + | Race | White | + + + | Ethnic Group | Not or | + + + Author + + + | Author | [facility] | + + + | Organization | [facility] | + + + | Address | Unknown | + + + | Phone | Unavailable | + + + Support + + +---------+ + | Name | Relationship | Address | Phone | + + +---------+ + | FATUMA MAS | ECON | Unknown | | + + +---------+ + Care Team Providers + +------+ + | Care Director Fraud Name | Role | Phone | + +------+ + | Gilberto Estrada MD | PCP | | + +------+ + Reason for Visit + + + | Reason | Comments | + + + | Laboratory Test | | | Result Abnormal | | + + + Encounter Details +--------+ + + + + | Date | Type | Department | Care Team | Description | +--------+ + + + + | 07/03/ | Documentati | Infectious | Abril Shields, | Laboratory Test | | 2018 | on | Diseases at [facility] | [address] [facility] [address] | Result Abnormal | | | | Floor [address] | [facility] | | | | | [facility] | [place], [place] | | | | | Mailcode: [id number] | [address] | | | | | [facility] | [phone] | | | | | [place], [place] | | | | | | [address] | | | | | | [phone] | | | +--------+ + + + [...] | | + + +---------+ + | No | | | | + + +---------+ + + + + | Sex Assigned at | Date Recorded | | | | + + + | Not on file | | + + + as of this encounter Functional Status + [...] | | | + + + + as of this encounter Plan of Treatment +--------+ + + + + | Date | Type | Specialty | Care Team | Description | +--------+ + + + + | 07/14/ | Appointment | Radiology | [place], | | | 2017 | | | [address] | | | | | | [address] | | | | | | [place] | | | | | | [address] | | | | | | [phone] | | | | | | | | +--------+ + + + + | 07/15/ | Office | Infectious Disease | Abril Shields, | | | 2017 | Visit | | [facility] [address] [address] | | | | | | [address] | | | | | | [place] | | | | | | [address] | | | | | | [phone] | | | | | | | | +--------+ + + + + as of this encounter Visit Diagnoses Not on filein this encounter"
--- OUTSIDE RECORDS SUMMARY | ~2018-07-13 | XMS | Encounter Summary ---
Demographics + + + | Address | [address] | | | [place] [address] | + + + | Home Phone | | + + + | Preferred Language | Unknown | + + + | Marital Status | | + + + | Yarsani Affiliation | 1077 | + + + | Race | Unknown | + + + | Ethnic Group | Unknown | + + + Author + + + | Author | [facility] | + + + | Organization | [facility] | + + + | Address | Unknown | + + + | Phone | Unavailable | + + + Support + + +---------+ + | Name | Relationship | Address | Phone | + + +---------+ + | Beth Mas | ECON | Unknown | | + + +---------+ + Care Team Providers + +------+ + | Care Senior Merchandiser Name | Role | Phone | + +------+ + | Cesar Christopher MD | PCP | | + +------+ + Encounter Details +--------+ + + + + | Date | Type | Department | Care Team | Description | +--------+ + + + + | 04/27/ | Telephone | [facility] | [facility] | | | 2017 | | [facility] [place] | | | | | | [address] | | | | | | [place] | | | | | | [address] | | | | | | [phone] | | | +--------+ + + + [...] | 2018 | Visit | | [facility] | | | | | | [address] | | | | | | [place] [address] | | | | | | [phone] | | | | | | | | +--------+ + + + + | 10/21/ | Documentati | Cardiology | | | | 2018 | on Only | | | | +--------+ + + + + as of this encounter Visit Diagnoses Not on filein this encounter"
--- OUTSIDE RECORDS SUMMARY | ~2018-07-13 | XMS | Encounter Summary ---
Demographics + + + | Address | [address] | | | [place] [address] | + + + | Home Phone | | + + + | Preferred Language | Unknown | + + + | Marital Status | Unknown | + + + | Yazidism Affiliation | PRO | + + + | Race | White | + + + | Ethnic Group | Not or | + + + Author + + + | Author | [facility] | + + + | Organization | [facility] | + + + | Address | Unknown | + + + | Phone | Unavailable | + + + Support + + +---------+ + | Name | Relationship | Address | Phone | + + +---------+ + | FATUAM MAS | ECON | Unknown | | + + +---------+ + Care Team Providers + +------+ + | Care Concrete Mixer Truck Driver Name | Role | Phone | + [...] | 2018 | Event | [facility] | [address] [facility] | | | | | Admitting Desk | [facility] | | | | | Located on the 9 | [place], [place] | | | | | floor [address] [place] [address] | [address] | | | | | [facility] | [phone] | | | | | [place], [place] | | | | | | [address] | | | +--------+ + + + + Anesthesia Record + + + + + | Procedure Name | Responsible | Anesthesia Start | Anesthesia Stop Time | | | Anesthesiologist | Time | | + + + + + | KNEE INCISION AND | Sen Jameson | 06/12/18 1301 | 06/12/18 1536 | | DRAINAGE WITH | MD Dean | | | | ANTIBIOTIC SPACER | | | | | PLACEMENT (Right | | | | | Knee) [...] +----+---+ + + | | 1 | Pause | | | | 3 | | [...] + + | Incisi | 06/12/18; 1414; Barrett; Right; | 06/12/18 1414 by | | | on | knee | Lauren Vega RN | | +--------+ + + + | Periph | 06/11/18; 1812; Right; | 06/11/181812 by | 06/15/181838 by | | eral | Antecubital; 20 g; 06/15/18; | Birgit Gomez RN | Padmini Magaña RN | | IV | 1839; Occluded | | | +--------+ + + + | Periph | 06/11/18; 1816; Right; | 06/11/18 1816 by | 06/17/18 105 by | | eral | Antecubital; 20 g; Positive; | Jesenia Miller, | Padmini Magaña RN | | IV | 06/17/18; 1058 | RN | | +--------+ + + + | Arteri | 06/12/18; 0112 (created via | 06/12/18 011 by | 06/12/18 161 by | | al | procedure documentation); | Robel Page, | Kelli Bain RN | | Line | Standard; Left; 20g; 06/12/18; | TRIMMER AND REINFORCER | | | | 1617; Per order | | | +--------+ + + + | Periph | 06/12/18; 1323; Right; Wrist; 20 | 06/12/18 1323 by | 06/14/181999 by | | eral | g; 06/14/181999 | Robel Page, | Gabriel Zapata RN | | IV | | [employer]MER [employer] REINFORCER | | +--------+ + + + | Drain | 06/12/18; 1422; Barrett AGUILAR; | 06/12/18 1422 by | 06/16/18 0000 by | | | Hemovac; Right; knee; 06/16/18; | Lauren Vega RN | Padmini Magaña RN | | | No longer present | | | +--------+ + + + in this encounter Social History + +-------+ [...] Radiology | Sandoval Hyde, | | | 2018 | | | [address] | | | | | | [address] | | | | | | [place], [place] | | | | | | [address] | | | | | | [phone] | | | | | | | | +--------+ + + + + | 07/15/ | Office | Infectious Disease | Abril Shields, | | | 2017 | Visit | | [address] [facility] | | | | | | [address] | | | | | | [facility] [place] | | | | | | [address] | | | | | | [phone] | | | | | | | | +--------+ + + + + as of this encounter Results LAZARO DALLAS (06/12/2018 1:52 PM) + + + | Narrative | Performed At | + + + Skye Page CRNA 06/12/2018 1:57 PM Procedure ART | | | LINE Procedure Information Inserted: Before Induction 5 [...] | StatLock Assessment Number of attempts: 1st | | | Complications: None Assessment: Catheter connected to pressure line | | | and flushed, catheter manually flushed, Tolerated procedure well and | | | Perfusion checked distal to catheter Attending physically present | | | Attending Name: PRINCESS WARD Performed by AGUSTIN VELEZ Name: | | | ROBEL PAGE Performed by Laureen GRAHAM. | | + + + ANE LMA (06/12/2018 1:48 PM) + + + | Narrative | Performed At | + + + | Robel Page CRNA 06/12/2018 1:52 PM Procedure | | | Reason for Intubation: For surgical procedure, Location Performed: [place] | | | , Patient was preoxygenated Mask Ventilation Grade 1 - Ventilated | | | by mask ETT SGA Atraumatic Placement: Yes LMA Type: | | | Air-Q LMA Size: 4.5LMA Size: 4.5 LMA positive for | | | Etco2 Breath Sounds Auscultated: Bilateral and equal Narrative | | | Attending physically present Performed by Laureen GRAHAM. | | + + + in this encounter Visit Diagnoses Not on filein this encounter Administered Medications + +--------+ +-------+------+------+ | Medication Order | MAR | Action | Dose | Rate | Site | | | Action | Date | | | | + +--------+ +-------+------+------+ | bupivacaine (PF) | Given | | 20 mL | | | | (MARCAINE,SENSORCAINE-MPF) | | 8 12:55 | | | | | injection INTRAPROCEDURE PRN, | | PDT | | | | | Starting Fri06/12/18 at 1255, | | | | | | | Until 8/17/18 at 1529 | | | | | | + +--------+ +-------+------+------+ +---+---+ | | | +---+---+ + +-------+ + +---+---+ | ceFAZolin (ANCEF) injection | Given | | 2,000 mg | | | | INTRAPROCEDURE PRN, Starting Fri | | 8 14:01 | | | | | 06/12/18 at 1401, Until Fri | | PDT | | | | | 06/12/18 at 1529 | | | | | | + +-------+ + +---+---+ +---+---+ | | | +---+---+ + +-------+ +--------+---+---+ | dextrose in water injection | Given | | 12.5 g | | | | INTRAPROCEDURE PRN, Starting Fri | | 8 14:11 | | | | | 06/12/18 at 1411, Until Fri | | PDT | | | | | 06/12/18 at 1529 | | | | | | + +-------+ +--------+---+---+ +---+---+ | | | +---+---+ + +-------+ +--------+---+---+ | fentaNYL (SUBLIMAZE) injection | Given | | 25 mcg | | | | intravenous, INTRAPROCEDURE PRN, | | 8 12:45 | | | | | Starting 06/12/18 at 1245, | | PDT | | | | | Until 06/12/18 at 1529 | | | | | | + +-------+ +--------+---+---+ +-------+ +--------+---+---+ | Given | | 75 mcg | | | | | 8 13:21 | | | | | | PDT | | | | +-------+ +--------+---+---+ | Given | | 50 mcg | | | | | 8 13:59 | | | | | | PDT | | | | +-------+ +--------+---+---+ +---+---+ | | | +---+---+ + +---------+ +---+---+---+ | lactated Ringers IV | New Bag | | | | | | INTRAPROCEDURE CONTINUOUS PRN, | | 8 12:05 | | | | | Starting 06/12/18 at 1205, | | PDT | | | | | Until 06/12/18 at 1529 | | | | | | + +---------+ +---+---+---+ + + +---+---+---+ | given by anesthesiology | | | | | | | 8 14:30 | | | | | | PDT | | | | + + +---+---+---+ +---+---+ | | | +---+---+ + +-------+ +-------+---+---+ | lidocaine PF (XYLOCAINE MPF) 20 | Given | | 60 mg | | | | mg/mL (2 %) injection | | 8 13:18 | | | | | INTRAPROCEDURE PRN, Starting Fri | | PDT | | | | | 06/12/18 at 1318, Until Fri | | | | | | | 06/12/18 at 1529 | | | | | | + +-------+ +-------+---+---+ +---+---+ | | | +---+---+ + +-------+ +------+---+---+ | ondansetron (ZOFRAN) injection | Given | | 4 mg | | | | intravenous, INTRAPROCEDURE PRN, | | 8 14:30 | | | | | Starting 06/12/18 at 1430, | | PDT | | | | | Until 06/12/18 at 1529 | | | | | | + +-------+ +------+---+---+ +---+---+ | | | +---+---+ + +-------+ +---------+---+---+ | PHENYLEPHrine 100 mcg/mL IV | Given | | 100 mcg | | | | syringe INTRAPROCEDURE PRN, | | 8 13:21 | | | | | Starting 06/12/18 at 1318, | | PDT | | | | | Until 06/12/18 at 1529 | | | | | | + +-------+ +---------+---+---+ +-------+ +---------+---+---+ | Given | | 100 mcg | | | | | 8 13:28 | | | | | | PDT | | | | +-------+ +---------+---+---+ | Given | | 50 mcg | | | | | 8 14:48 | | | | | | PDT | | | | +-------+ +---------+---+---+ +---+---+ | | | +---+---+ + +---------+ +--------+---+---+ | propofol (DIPRIVAN) 200 mg | New Bag | | 100 mg | | | | intravenous, INTRAPROCEDURE | | 8 13:18 | | | | | CONTINUOUS PRN, Starting Fri | | PDT | | | | | 06/12/18 at 1318, Until Fri | | | | | | | 06/12/18 at 1529 | | | | | | + +---------+ +--------+---+---+ +---+---+ | | | +---+---+ in this encounter"
--- OUTSIDE RECORDS SUMMARY | ~2018-07-13 | XMS | Encounter Summary ---
Demographics + + + | Address | [address] | | | [place] [address] | + + + | Home Phone | | + + + | Preferred Language | Unknown | + + + | Marital Status | | + + + | Alevism Affiliation | 1077 | + + + | Race | Unknown | + + + | Ethnic Group | Unknown | + + + Author + + + | Author | [facility] | + + + | Organization | [facility] | + + + | Address | Unknown | + + + | Phone | Unavailable | + + + Support + + +---------+ + | Name | Relationship | Address | Phone | + + +---------+ + | Beth Mas | ECON | Unknown | | + + +---------+ + Care Team Providers + +------+ + | Care Embedded Software Test Engineer Name | Role | Phone | + +------+ + | Cesar Christopher MD | PCP | | + +------+ + Encounter Details +--------+ + + + + | Date | Type | Department | Care Team | Description | +--------+ + + + + | 05/26/ | Telephone | [facility] | Carmelita Hernandez CMA | | | 2017 | | [place] [address] | | | | | | [address] | | | | | | [place] [address] | | | | | | [phone] | | | +--------+ + + + [...] [address] | | | | | | [place] [address] | | | | | | [phone] | | | | | | | | +--------+ + + + + | 10/21/ | Documentati | Cardiology | | | | 2017 | on Only | | | | +--------+ + + + + + +--------+ + + | Name | Priori | Associated Diagnoses | Order Schedule | | | ty | | | + +--------+ + + | Renal function panel | Routin | Mixed | Expected: | | | e | hyperlipidemia Type | 09/14/2018, Expires: | | | | 2 diabetes mellitus | 05/26/2019 | | | | without | | | | | complication, | | | | | without long-term | | | | | current use of | | | | | insulin (HCC) CKD | | | | | (chronic kidney | | | | | disease), stage III | | | | | Secondary | | | | | hyperparathyroidism | | | | | (HCC) | | + +--------+ + + | Magnesium | Routin | Mixed | Expected: | | | e | hyperlipidemia Type | 09/14/2018, Expires: | | | | 2 diabetes mellitus | 05/26/2019 | | | | without | | | | | complication, | | | | | without long-term | | | | | current use of | | | | | insulin ([facility]) CKD | | | | | (chronic kidney | | | | | disease), stage III | | | | | Secondary | | | | | hyperparathyroidism | | | | | ([facility]) | | + +--------+ + + | CBC W/Auto Diff (Reflex to | Routin | Mixed | Expected: | | Manual) | e | hyperlipidemia Type | 09/14/2018, Expires: | | | | 2 diabetes mellitus | 05/26/2019 | | | | without | | | | | complication, | | | | | without long-term | | | | | current use of | | | | | insulin (HCC) CKD | | | | | (chronic kidney | | | | | disease), stage III | | | | | Secondary | | | | | hyperparathyroidism | | | | | ([facility]) | | + +--------+ + + | PTH intact no calcium | Routin | Mixed | Expected: | | | e | hyperlipidemia Type | 09/14/2018, Expires: | | | | 2 diabetes mellitus | 05/26/2019 | | | | without | | | | | complication, | | | | | without long-term | | | | | current use of | | | | | insulin (HCC) CKD | | | | | (chronic kidney | | | | | disease), stage III | | | | | Secondary | | | | | hyperparathyroidism | | | | | (HCC) | | + +--------+ + + | Urinalysis (reflex to micro) | Routin | Mixed | Expected: | | | e | hyperlipidemia Type | 09/14/2018, Expires: | | | | 2 diabetes mellitus | 05/26/2019 | | | | without | | | | | complication, | | | | | without long-term | | | | | current use of | | | | | insulin (HCC) CKD | | | | | (chronic kidney | | | | | disease), stage III | | | | | Secondary | | | | | hyperparathyroidism | | | | | (HCC) | | + +--------+ + + | Protein / creatinine ratio, urine | Routin | Mixed | Expected: | | | e | hyperlipidemia Type | 09/14/2018, Expires: | | | | 2 diabetes mellitus | 05/26/2019 | | | | without | | | | | complication, | | | | | without long-term | | | | | current use of | | | | | insulin (HCC) CKD | | | | | (chronic kidney | | | | | disease), stage III | | | | | Secondary | | | | | hyperparathyroidism | | | | | (HCC) | | + +--------+ + + as of this encounter Visit Diagnoses + + | Diagnosis | + + | CKD (chronic kidney disease), stage III - Primary | + + | Chronic kidney disease, Stage III (moderate) | + + | Mixed hyperlipidemia | + + | Type 2 diabetes mellitus without complication, without long-term current use of insulin | | (HCC) | + + | Secondary hyperparathyroidism (HCC) | + + | Secondary hyperparathyroidism (of renal origin) | + +"
--- OUTSIDE RECORDS SUMMARY | ~2018-07-13 | XMS | Encounter Summary ---
Demographics + + + | Address | [address] | | | [place] [address] | + + + | Home Phone | | + + + | Preferred Language | Unknown | + + + | Marital Status | Unknown | + + + | Confucianism Affiliation | PRO | + + + | Race | White | + + + | Ethnic Group | Not or | + + + Author + + + | Author | [facility] | + + + | Organization | [facility] | + + + | Address | Unknown | + + + | Phone | Unavailable | + + + Support + + +---------+ + | Name | Relationship | Address | Phone | + + +---------+ + | FATUMA MAS | ECON | Unknown | | + + +---------+ + Care Team Providers + +------+ + | Care Auto Wheel Alignment Specialist Name | Role | Phone | + +------+ + | Gilberto Estrada MD | PCP | | + +------+ + Encounter Details +--------+--------+ + + + | Date | Type | Department | Care Team | Description | +--------+--------+ + + + | 06/11/ | Intake | Transfer Center | | N/A | | 2018 | | [address] | | | | | | [place], | | | | | | [place] [address] | | | +--------+--------+ + + + [...] | | | 2017 | | | [address] | | | | | | [address] | | | | | | [place], [place] | | | | | | [address] | | | | | | [phone] | | | | | | | | +--------+ + + + + | 07/15/ | Office | Infectious Disease | Abril Shields, | | | 2017 | Visit | | [address] | | | | | | [address] | | | | | | [place] | | | | | | [address] | | | | | | [phone] | | | | | | | | +--------+ + + + + as of this encounter Visit Diagnoses Not on filein this encounter"
--- OUTSIDE RECORDS SUMMARY | ~2018-07-13 | XMS | Encounter Summary ---
Demographics + + + | Address | [address] | | | [place] [address] | + + + | Home Phone [...] Author + + + | Author | [facility] | + + + | Organization | [facility] | + + + | Address | Unknown | + + + | Phone | Unavailable | + + + Support + + +---------+ + | Name | Relationship | Address | Phone | + + +---------+ + | FATUMA MAS | ECON | Unknown | | + + +---------+ + Care Team Providers + +------+ + | Care Warehouse Hand Name | Role | Phone | + +------+ + | Gilberto Estrada MD | PCP | | + +------+ + Encounter Details +--------+ + + + + | Date | Type | Department | Care Team | Description | +--------+ + + + + | 06/12/ | Procedure | 6A Intra [facility] | | | | 2017 | Pass | [facility] | | | | | | Admitting Desk | | | | | | Located on the 9th | | | | | | floor [address] [facility] | | | | | | [facility] | | | | | | [place], [place] | | | | | | [address] | | | +--------+ + + + [...] [address] | | | | | | [facility] [place] | | | | | | [address] | | | | | | [phone] | | | | | | | | +--------+ + + + + | 07/15/ | Office | Infectious Disease | Abril Shields, | | | 2017 | Visit | | MD [address] | | | | | | [address] | | | | | | [facility] [place] | | | | | | [address] | | | | | | [phone] | | | | | | | | +--------+ + + + + as of this encounter Visit Diagnoses Not on filein this encounter"
--- OUTSIDE RECORDS SUMMARY | ~2018-07-13 | XMS | Encounter Summary ---
Demographics + + + | Address | [address] | | | [place] [address] | + + + | Home Phone | | + + + | Preferred Language | Unknown | + + + | Marital Status | Unknown | + + + | Orthodox Affiliation | PRO | + + + [...] Team Providers + +------+ + | Care Operations Manager Name | Role | Phone | + +------+ + | Gilberto Estrada MD | PCP | | + +------+ + Reason for Visit + + + | Reason | Comments | + + + | Transitional Care | | | Management | | + + + | Infectious disease | | + + + Encounter Details +--------+ + + + + | Date | Type | Department | Care Team | Description | +--------+ + + + + | 09/05/ | Telephone | Infectious | Celia Hawthorne, RN | Transitional Care | | 2018 | | Diseases at [facility] | [address] | Management; | | | | Floor [address] | [facility] | Infectious disease | | | | [facility] | [place], [place] | | | | | Mailcode: L457 | [address] | | | | | [facility] | [phone] | | | | | [place], [place] | | | | | | [address] | | | | | | [phone] | | | +--------+ + + + [...] Rd | | | | | | [facility] [place] | | | | | | [address] | | | | | | [phone] | | | | | | | | +--------+ + + + + | 07/15/ | Office | Infectious Disease | Abril Shields, | | | 2017 | Visit | | MD [address] | | | | | | [address] | | | | | | [place], [place] | | | | | | [address] | | | | | | [phone] | | | | | | | | +--------+ + + + + as of this encounter Visit Diagnoses Not on filein this encounter"
--- OUTSIDE RECORDS SUMMARY | ~2018-07-13 | XMS | Encounter Summary ---
Demographics + + + | Address | [address] | | | [place] [address] | + + + | Home Phone [...] Author + + + | Author | [facility] | + + + | Organization | [facility] | + + + | Address | Unknown | + + + | Phone | Unavailable | + + + Support + + +---------+ + | Name | Relationship | Address | Phone | + + +---------+ + | FATUMA MAS | ECON | Unknown | | + + +---------+ + Care Team Providers + +------+ + | Care Telecommunications Field Technician Name | Role | Phone | + +------+ + | Gilberto Estrada MD | PCP | | + +------+ + Reason for Visit + + + | Reason | Comments | + + + | RN Care Management | correct cefazolin orders | + + + Encounter Details +--------+ + + + + | Date | Type | Department | Care Team | Description | +--------+ + + + + | 07/02/ | Documentati | Infectious | Jaye Winchester, | RN Care Management | | 2018 | on | [facility] at [facility] | RN [address] | (correct cefazolin | | | | Floor [address] | [facility] [address] | orders) | | | | [facility] | [place], [place] | | | | | Mailcode: L457 | [address] | | | | | [facility] | | | | | | [place], [place] | | | | | | [address] | | | | | | [phone] | | | +--------+ + + + [...] Rd | | | | | | [place], [place] | | | | | | [address] | | | | | | [phone] | | | | | | | | +--------+ + + + + | 07/15/ | Office | Infectious Disease | Abril Shields, | | | 2017 | Visit | | MD [address] | | | | | | [address] | | | | | | [place], [place] | | | | | | [address] | | | | | | [phone] | | | | | | | | +--------+ + + + + as of this encounter Visit Diagnoses + + | Diagnosis | + + | Infection associated with internal right knee prosthesis, subsequent encounter | + +"
--- OUTSIDE RECORDS SUMMARY | ~2018-07-13 | XMS | Encounter Summary ---
Demographics + + + | Address | [address] | | | [place] [address] | + + + | Home Phone [...] Author + + + | Author | [facility] | + + + | Organization | [facility] | + + + | Address | Unknown | + + + | Phone | Unavailable | + + + Support + + +---------+ + | Name | Relationship | Address | Phone | + + +---------+ + | FATUMA MAS | ECON | Unknown | | + + +---------+ + Care Team Providers + +------+ + | Care Watershed Coordinator Name | Role | Phone | + +------+ + | Gilberto Estrada MD | PCP | | + +------+ + Reason for Visit + + + | Reason | Comments | + + + | Transitional Care | [facility] | | Management | | + + + | Infectious disease | | + + + Encounter Details +--------+ + + + + | Date | Type | Department | Care Team | Description | +--------+ + + + + | 06/24/ | Telephone | Infectious | Ranulfo Jaye, | Transitional Care | | 2018 | | Diseases at [facility] | RN [address] | Management ([facility]); | | | | Floor [address] | [facility] | Infectious disease | | | | [facility] | [place], [place] | | | | | Mailcode: L457 | [address] | | | | | [facility] | | | | | | [place], [place] | | | | | | [address] | | | | | | [phone] | | | +--------+ + + + [...] Rd | | | | | | [facility] [place] | | | | | | [address] | | | | | | [phone] | | | | | | | | +--------+ + + + + | 07/15/ | Office | Infectious Disease | Abril Shields, | | | 2017 | Visit | | MD [address] | | | | | | [address] | | | | | | [place], [place] | | | | | | [address] | | | | | | [phone] | | | | | | | | +--------+ + + + + as of this encounter Visit Diagnoses Not on filein this encounter"
--- OUTSIDE RECORDS SUMMARY | ~2018-07-13 | XMS | Encounter Summary ---
Demographics + + + | Address | [address] | | | [place] [address] | + + + | Home Phone [...] Team Providers + +------+ + | Care Instrumentation Technician Name | Role | Phone | [...] | Floor [address] | [facility] | Infectious disease | | | | [facility] | [place], [place] | | | | | Mailcode: L457 | [address] | | | | | [facility] | [phone] | | | | | [place], [place] | | | | | | [address] | | | | | | [phone] | | | +--------+ + + + [...] Rd | | | | | | [facility] [place] | | | | | | [address] | | | | | | [phone] | | | | | | | | +--------+ + + + + | 07/15/ | Office | Infectious Disease | Abril Shields, | | | 2017 | Visit | | MD [address] | | | | | | [address] | | | | | | [place], [place] | | | | | | [address] | | | | | | [phone] | | | | | | | | +--------+ + + + + as of this encounter Visit Diagnoses Not on filein this encounter"
--- OUTSIDE RECORDS SUMMARY | ~2018-07-13 | XMS | Encounter Summary ---
Demographics + + + | Address | [address] | | | [place] [address] | + + + | Home Phone | | + + + | Preferred Language | Unknown | + + + | Marital Status | | + + + | Synagogue Affiliation | 1077 | + + + | Race | Unknown | + + + | Ethnic Group | Unknown | + + + Author + + + | Author | [facility] | + + + | Organization | [facility] | + + + | Address | Unknown | + + + | Phone | Unavailable | + + + Support + + +---------+ + | Name | Relationship | Address | Phone | + + +---------+ + | Beth Mas | ECON | Unknown | | + + +---------+ + Care Team Providers + +------+ + | Care Metal Bed Assembler Name | Role | Phone | + +------+ + | Cesar Christopher MD | PCP | | + +------+ + Reason for Visit +--------+ + | Reason | Comments | +--------+ + | Other | Blood Pressure Check | +--------+ + Encounter Details +--------+ + + + + | Date | Type | Department | Care Team | Description | +--------+ + + + + | 05/20/ | Telephone | [facility] | Carmelita Hernandez CMA | Other (Blood | | 2017 | | [place] [address] | | Pressure Check) | | | | [address] | | | | | | [place] [address] | | | | | | [phone] | | | +--------+ + + + [...] | 09/24/ | Office | Nephrology | [place], Gutierrez, | | | 2018 | Visit | | [address] | | | | | | [address] | | | | | | [place] [address] | | | | | | [phone] | | | | | | | | +--------+ + + + + | 10/21/ | Documentati | Cardiology | | | | 2017 | on Only | | | | +--------+ + + + + as of this encounter Visit Diagnoses Not on filein this encounter"
--- OUTSIDE RECORDS SUMMARY | ~2018-07-13 | XMS | Clinical Summary ---
Demographics + + + | Address | [address] | | | [place] [address] | + + + | Home Phone | | + + + | Preferred Language | Unknown | + + + | Marital Status | | + + + | Latter-Day Affiliation | 1077 | + + + | Race | Unknown | + + + | Ethnic Group | Unknown | + + + Author + + + | Author | [facility] | + + + | Organization | [facility] | + + + | Address | Unknown | + + + | Phone | Unavailable | + + + Support + + +---------+ + | Name | Relationship | Address | Phone | + + +---------+ + | Beth Mas | ECON | Unknown | | + + +---------+ + Care Team Providers + +------+ + | Care Fleshing Machine Operator Name | Role | Phone | + +------+ + | Cesar Christopher MD | PP | | + +------+ + Allergies + + + + + + | Active Allergy | Reactions | Severity | Noted | Comments | | | | | Date | | + + + + + + | Sulfa Antibiotics | Hives | High | 09/03/20 | | | | | | 13 | | + + + + + + Current Medications + + +--------+---------+------+------+-------+ | Prescription | Sig. | Disp. | Refills | Star | End | Statu | | | | | | t | Date | s | | | | | | Date | | | + + +--------+---------+------+------+-------+ | allopurinol | Take 300 mg by mouth | | | | | Activ | | (ZYLOPRIM) 300 MG | daily. | | | | | e | | tablet | | | | | | | + + +--------+---------+------+------+-------+ | metFORMIN | Take 500 mg by mouth | | | | | Activ | | (GLUCOPHAGE) 500 MG | 2 (two) times daily | | | | | e | | tablet | with meals. | | | | | | + + +--------+---------+------+------+-------+ | colchicine 0.6 MG | Take 0.6 mg by mouth | | | | | Activ | | tablet | daily as needed. | | | | | e | + + +--------+---------+------+------+-------+ | simvastatin | Take 40 mg by mouth | | | | | Activ | | (ZOCOR) 40 MG tablet | nightly. | | | | | e | + + +--------+---------+------+------+-------+ | | Apply topically 2 | | | | | Activ | | nystatin-triamcinolo | (two) times daily as | | | | | e | | ne (MYCOLOG) | needed. | | | | | | | ointment | | | | | | | + + +--------+---------+------+------+-------+ | warfarin | Take 2.5 mg by mouth | | | | | Activ | | (COUMADIN) 2.5 MG | daily. Dr. Christopher | | | | | e | | tablet | regulates PTs | | | | | | + + +--------+---------+------+------+-------+ | cholecalciferol | Take 1,000 Units by | | | | | Activ | | (VITAMIN D-3) 1000 | mouth daily. | | | | | e | | UNITS tablet | | | | | | | + + +--------+---------+------+------+-------+ | folic acid | Take 400 mcg by | | | | | Activ | | (FOLVITE) 400 MCG | mouth daily. | | | | | e | | tablet | | | | | | | + + +--------+---------+------+------+-------+ | Freedom-3 Fatty | Take 1,200 mg by | | | | | Activ | | Acids (FISH OIL) | mouth 2 (two) times | | | | | e | | 1200 MG CAPS | daily. | | | | | | + + +--------+---------+------+------+-------+ | glimepiride | Take 4 mg by mouth | | | | | Activ | | (AMARYL) 4 MG tablet | every morning before | | | | | e | | | breakfast. | | | | | | + + +--------+---------+------+------+-------+ | Multiple | Take 1 tablet by | | | | | Activ | | Vitamins-Minerals | mouth. | | | | | e | | (EYE VITAMINS) CAPS | | | | | | | + + +--------+---------+------+------+-------+ | magnesium oxide | Take 1 tablet by | 30 | 2 | 02/1 | | Activ | | (MAG-OX) 400 MG | mouth daily. | tablet | | 3/20 | | e | | tablet | | | | 17 | | | + + +--------+---------+------+------+-------+ | | Take by mouth every | | | | | Activ | | acetaminophen-codein | 4 (four) hours as | | | | | e | | e (TYLENOL #3) | needed for Pain. | | | | | | | 300-30 MG per tablet | | | | | | | + + +--------+---------+------+------+-------+ | Doxycycline | Take 100 mg by mouth | | | | | Activ | | Monohydrate 150 MG | 2 (two) times | | | | | e | | CAPS | daily. | | | | | | + + +--------+---------+------+------+-------+ | eplerenone | Take 0.5 tablets by | 30 | 6 | 07/2 | | Activ | | (INSPRA) 25 MG | mouth daily. | tablet | | 6/20 | | e | | tablet | | | | 17 | | | + + +--------+---------+------+------+-------+ | torsemide | Take 20 mg by mouth | | | | | Activ | | (DEMADEX) 20 MG | 2 (two) times daily. | | | | | e | | tablet | | | | | | | + + +--------+---------+------+------+-------+ | isosorbide | Take 1 tablet by | 90 | 3 | 04/1 | | Activ | | mononitrate (IMDUR) | mouth daily. | tablet | | 0/20 | | e | | 60 MG 24 hr tablet | | | | 18 | | | + + +--------+---------+------+------+-------+ | carvedilol (COREG) | TAKE ONE TABLET BY | 180 | 2 | 04/0 | | Activ | | 12.5 MG tablet | MOUTH TWICE DAILY | tablet | | 20 | | e | | | | | | 18 | | | + + +--------+---------+------+------+-------+ Active Problems + + + | Problem | Noted Date | + + + | Secondary hyperparathyroidism (HCC) | 05/26/2018 | + + + | CKD (chronic kidney disease), stage III | 02/23/2018 | + + + | Bilateral leg edema | 02/23/2018 | + + + | History of gout | 02/09/2017 | + + + + + | Overview: He is on allopurinol 300 mg per day. Also on | | colchicine as needed. | + + + + + | Type 2 diabetes mellitus without complication, without long-term | 02/09/2017 | | current use of insulin (HCC) | | + + + + + | Overview: On metformin and glimepramide. | + + + + + | Venous insufficiency of both lower extremities | 01/31/2017 | + + + + + | Overview: He has chronic venous insufficiency with venous | | stasis bilaterally. On high-dose diuretics and feeling very | | thirsty. Clinically seems to be dehydrated. Last Assessment & | | Plan: Use Omid wraps for the lower extremities bilaterally. | | Decrease Lasix to 20 mg per day and stop metalazone and | | potassium. Add spironolactone 12.5 mg per day. Hold Lasix for one | | day | + + + + + | Skin lesions, generalized | 01/31/2017 | + + + + + | Overview: He is seen a church history teacher because of generalized | | skin lesions that start with redness and then form a blister and | | then a blood blister. Now on doxycycline. | + + + + + | Morbid obesity due to excess calories (HCC) | 01/31/2017 | + + + + + | Last Assessment & Plan: Weight loss of 1-2 pounds per week | | was encouraged. | + + + + + | Pacemaker | 01/24/2017 | + + + + + | Overview: 1. Pulse generator: [employer]. Model number [id number], | | serial number [id number]. Placed because of symptomatic sinus | | [...] block.2. RV | | lead: Medtronic, model #753042, serial number [id number]. RA | | lead: Medtronic, model #609496, serial number [id number]. This | | is an Medtronic MRI compatible pacemaker. Placed in September | | 2015. Dr Ha.01/13/2018Changes this session: A. Amp increased | | to 1.00v from 0.75v, and upper sensor rate was decreased to 115 | | BPM from 130 BPM.AVWB OCCURRED AT 100 bpm today. Last Assessment | | & Plan: The right ventricular lead is not working properly | | because of markedly elevated pacing threshold of 0.5 ms at 8 V. | | The RV lead was programmed to 8 V and 1.2 ms today which is the | | highest output that can be achieved. AV wencheback occurred at | | 100 bpm. The device was programmed to an AAIR pacing mode with | | managed ventricular pacing algorithm. The atrial pacing threshold | | today was excellent (0.2 ms at 0.75 V). It was left at 0.75 V at | | 0.6 ms.I think the risks of change out [...] | + + + + + | Sleep apnea, obstructive | 11/25/2016 | + + + + + | Overview: He snores loudly. Sleeps in a chair (has done that | | for 10 years). A sleep study has apparently been ordered but he | | has not gotten it done yet. He does not want to take CPAP and | | has no intentions of doing that. Last Assessment & Plan: I | | encouraged him to get the sleep study done REGINA. | + + + + + | DVT (deep venous thrombosis) | 10/13/2014 | + + + + + | Last Assessment & Plan: Hx DVT, right leg, chronic venous | | insufficiency. On warfarin, managed by PCP.Arterial US, lower | | Ext, 10/09/2015: TDS, calcification of trifurcation vessels, | | mild-moderate disease in upper vessels. | + + + + + | Type 2 diabetes mellitus without complication (HCC) | 10/13/2014 | + + + + + | Last Assessment & Plan: DM2, managed by PCP. | + + + + + | CAD (coronary artery disease) | 10/12/2013 | + + + + [...] fraction was 53%.January 13, 2018: He is asymptomatic. Last | | Assessment & Plan: 2V-CAD, Hx [...] is planning to | | go to [place] after . He is on warfarin at [...] distal | | inferior-apical ischemia, LVEF 53%.[employer] [facility], | | 10/10/2016: sinus rhythm, with frequent PVC's, no VT, however, | | 1st degree AVB, 2nd degree AVB (Type 1 and 2), 3.5sec asystole, | | bundle branch block.ECG, 09/12/2016: sinus rhythm, 78bpm, 1st | | degree AVB, old inferior OR, RBBB/LAFB. | + + + + + | Hyperlipidemia | 10/12/2013 | + + + + + | Overview: On statin therapy (simvastatin 40 mg per day). | | Last Assessment & Plan: Hyperlipidemia, at goal, continue [...] ESR: | | 18 | + + Resolved Problems + + + + | Problem | Noted | Resolved | | | Date | Date | + + + + | Essential hypertension with goal blood pressure less than 130/85 | 10/12/20 | | | | 13 | 8 | + + + + + + | Overview: On losartan 50 mg per day and carvedilol 6.25 mg | | bid. Mild LV systolic dysfunction with ejection fraction 45-55 | | percent on various studies.01/13/2018Blood pressure log revealed a | | systolic rate between 110-120. Current therapy will be | | continued. Last Assessment & Plan: He has some orthostatic | | hypotension intermittently. Have asked him to change losartan to | | 50 mg at bedtime and to increase the carvedilol to 12.5 mg bid. | | Stop metalazone since he seems to be dry, and decrease Lasix from | | 80 to 20 mg per day. Stop potassium and use low-dose | | spironolactone, starting with 12.5 g per day, since he has | | diabetes. This plan was discussed with Dr. Rothman. | + + Encounters +--------+ + + + + | Date | Type | Specialty | Care Team | Description | +--------+ + + + + | 05/26/ | Office | | Mikal Calix MD | CKD (chronic kidney | | 2018 | Visit | | | disease), stage III | | | | | | (Primary Dx); | | | | | | Bilateral leg edema; | | | | | | Type [...] | | | | | (HCC) | +--------+ + + + + | 05/26/ | Telephone | | Carmelita Hernandez CMA | | | 2017 | | | | | +--------+ + + + + | 05/20/ | Telephone | | Carmelita Hernandez CMA | Other (Blood | | 2017 | | | | Pressure Check) | +--------+ + + + + | 05/20/ | Lab | | Judith Zhang | Essential | | 2017 | Requisition | | I, Accounting Coordinator | hypertension with | | | | | | goal blood pressure | | | | | | less than 130/85; | | [...] hyperlipidemia | +--------+ + + + + | 04/27/ | Telephone | | Su Méndez | | | 2017 | | | | | +--------+ + [...] 82) | | + +------+ + + Social [...] + | Respiratory Rate | 18 | 12/09/2016 2:48 PM PST | + + + + | Oxygen [...] AM PDT | + + + + Plan of Treatment +--------+ + + + + | Date | Type | Specialty | Care Team | Description | +--------+ + + + + | 07/22/ | Documentati | | | | | 2017 | on Only | | | | +--------+ + + + + | 09/24/ | Office | | Gutierrez Prado, | | | 2017 | Visit | | [address] | | | | | | [address] | | | | | | [address] | | | | | | [phone] | | | | | | | | +--------+ + + + + | 10/21/ | Documentati | | | | | 2017 | on Only | | | | +--------+ + + + + + + + + + | Health Maintenance | Due Date | Last Done | Comments | + + + + + | Diabetic Eye Exam | | | | | | 8 | | | + + + + + | Diabetic Foot Exam | | | | | | 8 | | | + + + + + | Microalbumin | | | | | Screening | 8 | | | + + + + + | Vaccine: | | | | | Dtap/Tdap/Td (1 - | 7 | | | | Tdap) | | | | + + + + + | Vaccine: Zoster (1 | | | | | of 2) | 8 | | | + + + + + | Vaccine: | | | | | Pneumococcal 65+ | 3 | | | | Low/Medium Risk (1 | | | | | of 2 - PCV13) | | | | + + + + + | Vaccine: Influenza | | | | | (#1) | 8 | | | + + + + + | Hemoglobin A1c | | 01/12/2018, 09/03/2013 | | | | 8 | | | + + + + + Implants + +--------+-------+ +--------+--------+--------+ | Implanted | Type | Area | Manufacture | Device | Expira | Model | | | | | r | | tion | / | | | | | | Identi | Date | Serial | | | | | | fier | | / Lot | + +--------+-------+ +--------+--------+--------+ | Capsurefix | Cardia | Heart | MEDTRONIC - | | | [id number] | | Nov-10/24/2016Implanted: | c | | MEDT | | | /[id number] | | Qty: 1 on 10/24/2016 by | Rhythm | | | | | [id number] | | Mikal Ha MD | | | | | | / | | | Manage | | | | | | | | ment | | | | | | + +--------+-------+ +--------+--------+--------+ | Capsurefix | Cardia | Heart | MEDTRONIC - | | | [id number] | | Novus-10/24/2016Implanted: | c | | MEDT | | | /[id number] | | Qty: 1 on 10/24/2016 by | Rhythm | | | | | [id number] | | Mikal Ha MD | | | | | | / | | | Manage | | | | | | | | ment | | | | | | + +--------+-------+ +--------+--------+--------+ | Advisa Mri | Pacema | Chest | MEDTRONIC - | | | [id number] | | Surescan-10/24/2016Implanted: | ker | | MEDT | | | | | Qty: 1 on 10/24/2016 by | | | | | | /[id number] | | Mikal Ha MD | | | | | | [id number] | | | | | | | | / | + +--------+-------+ +--------+--------+--------+ | Tibial Baseplate Triathlon | | | | | 05/25/ | [id number] | | Cemented Sz 5 - | | | | | 2017 | -500 | | [id number]: Qty: 1 on | | | | | | /[id number] | | 09/07/2013 by Aris, | | | | | | 500 | | Drew Napoles MD | | | | | | /[id number] | + +--------+-------+ +--------+--------+--------+ | Patella Triathlon 38mm 11mm | | | | | 04/25/ | 5551-G | | Height - [id number]: | | | | | 2017 | -381 | | Qty: 1 on 09/07/2013 by | | | | | | /[id number] | | Drew Hurst MD | | | | | | 381 | | | | | | | | /[id number] | + +--------+-------+ +--------+--------+--------+ | Femoral Comp Triathlon Cr | | | | | 02/23/ | 5517-F | | Beaded Sz 4 Rt - | | | | | 2017 | -402 | | [id number]: Qty: 1 on | | | | | | /[id number] | | 09/07/2013 by Aris, | | | | | | 402 | | Drew Napoles MD | | | | | | /[id number] | + +--------+-------+ +--------+--------+--------+ | Cement Bone Antibiotic | | | | | 09/25/ | 6197-9 | | Tobramycin Simplex P 150mg | | | | | 2013 | -001 | | [id number] Single Pk - | | | | | | /[id number] | | [id number]: Qty: 1 on | | | | | | 001 | | 09/07/2013 by Aris, | | | | | | /[id number] | | Drew Napoles MD | | | | | | 1 | + +--------+-------+ +--------+--------+--------+ | Insert Tibial Triathlon Cs Sz | | | | | 01/23/ | 5531-G | | 5 13mm - [id number]: | | | | | 2017 | -513 | | Qty: 1 on 09/07/2013 by | | | | | | /[id number] | | Drew Hurst MD | | | | | | 513 | | | | | | | | /[id number] | | | | | | | | 0 | + +--------+-------+ +--------+--------+--------+ Procedures + +--------+ + + + [...] | | + +--------+ + + + from Last 3 Months Results Protein / creatinine ratio, urine (05/20/2018 8:42 [...] + + + | [facility] | [address] | [place] [address] | [phone] | | LABORATORY | [address] | | | + + + + + Protein, urine, random (05/20/2018 8:42 AM) + [...] | + + + + + | [facility] | [address] | [place] [address] | [phone] | | LABORATORY | [address]vd[address] | | [...] + + + | [facility] | [address] | [place] [address] | [phone] | | LABORATORY | Blvd[address] | | [...] + + + + + | Specific [place], UA | 1.008 | 1.002 - 1.030 [...] + + + | [facility] | [address] | [place] [address] | [phone] | | LABORATORY | Blvd[address] | | [...] + + + | [facility] | [address] | [place] [address] | [phone] | | LABORATORY | Blvd[address] | | [...] + + + | [facility] | [address] | [place] [address] | [phone] | | LABORATORY | Blvd[address] | | [...] + + + + | [facility] | [address] | [place] [address] | [phone] | | LABORATORY | [address] | | [...] (H) | 0.70 - 1.30 mg/dL | [facility] | | | | | LABORATORY | + + + + + | CALCIUM | 9.4 | 8.5 - 10.5 mg/dL | [facility] | | | | | LABORATORY | + + + + + | Albumin | 3.6 | 3.3 - 4.8 g/dL | [facility] | | | | | LABORATORY | + + + + + | PHOSPHORUS | 2.8 | 2.3 - 4.8 mg/dL | [facility] | | | | | LABORATORY | + + + + + | EGFR | 37 (L)Comment: GFR <60: | >60 mL/min/1.73_m2 | [facility] | | | CHRONIC KIDNEY DISEASE, | [...] MDRD IDMS | | | | | traceable equation. | | | + + + + + + + | Specimen | + + | Blood | + + + + + + + | Performing | Address | City/State/Zipcode | Phone Number | | Organization | | | | + + + + + | [facility] | [address] | [place] [address] | [phone] | | LABORATORY | [place] | | | + + + + + from Last 3 Months Insurance + +--------+ +------+-------+ + | Payer | Benefi | Subscriber | Type | Phone | Address | | | t Plan | ID | | | | | | / | | | | | | | Group | | | | | + +--------+ +------+-------+ + | MEDICARE | MEDICA | [id number] | | | [address] | | | [place] | | | | [place] [id number] | | | IP-OP | | | | | + +--------+ +------+-------+ + | CIGNA | CIGNA | [id number] | | | | | | - | | | | | | | GENERI | | | | | | | C | | | | | + +--------+ +------+-------+ + + +--------+ +--------+ + + | Guarantor Name | Accoun | Relation to | Date | Phone | Billing Address | | | t Type | Patient | of | | | | | | | | | | + +--------+ +--------+ + + | JÚNIOR MAS | Person | Self | [birth year] | Home: | [address] | | | al/Fam | | 1940 | [phone] | [place] [address] | | | afshan | | | [phone] | | + +--------+ +--------+ + +
--- OUTSIDE RECORDS SUMMARY | ~2018-07-13 | XMS | Encounter Summary ---
Demographics + + + | Address | [address] | | | [place] [address] | + + + | Home Phone [...] Providers + +------+ + | Care Top Icer Name | Role | Phone | + [...] | | | 2018 | Event | [facility] | [address] [facility] | | | | | Admitting Desk | [facility] | | | | | Located on the 9 | [place], [place] | | | | | floor [address] [place] [address] | [address] | | | | | [facility] | [phone] | | | | | [place], [place] | | | | | | [address] | | | +--------+ + + + [...] Line | Standard; Left; 20g; 06/12/18; | RN MENTAL HEALTH | | | | 1617; Per order | | | +--------+ + + + | Periph | 06/12/18; 1323; Right; Wrist; 20 | 06/12/18 1323 by | 06/14/181999 by | | eral | g; 06/14/181999 | Robel Page, | Gabriel Zapata RN | | IV | | RN MENTAL HEALTH | | +--------+ + + + | [...] Rd | | | | | | [place], [place] | | | | | | [address] | | | | | | [phone] | | | | | | | | +--------+ + + + + | 07/15/ | Office | Infectious Disease | Abril Shields, | | | 2017 | Visit | | [address] [facility] | | | | | | [address] | | | | | | [facility] [place] | | | | | | [address] | | | | | | [phone] | | | | | | | [...]
--- OUTSIDE RECORDS SUMMARY | ~2018-07-13 | XMS | Encounter Summary ---
Demographics + + + | Address | [address] | | | [place] [address] | + + + | Home Phone [...] Author + + + | Author | [facility] | + + + | Organization | [facility] | + + + | Address | Unknown | + + + | Phone | Unavailable | + + + Support + + +---------+ + | Name | Relationship | Address | Phone | + + +---------+ + | FATUMA MAS | ECON | Unknown | | + + +---------+ + Care Team Providers + +------+ + | Care Rotor Pilot Name | Role | Phone | + [...] I&D, POLY | | 2017 | | [facility] | MD [address] | EXCHANGE MICRO x 7 | | | | Admitting Desk | [facility] | PATH x 2 | | | | Located on the | [place], [place] | | | | | floor [address] | [address] | | | | | [facility] | [phone] | | | | | [place], [place] | | | | | | [address] | | | +--------+---------+ + + + [...] + as of this encounter Discharge Summaries Ann Mahmood MD - 06/16/2018 5:49 PM PDTFormatting of this note may be different from the original. Clinical Hospitalist Discharge Summary PCP: Gilma Culver MD Author: Ann Mahmood MD Discharging Physician: [...] (s/p PCI x3, CABG x2) complicated by chrome cleaner erich systolic heart failure (EF 45%) due [...] excellent response. He will continue PT/OT at [facility] swing bed unit. Per orthopedic surgery, [...] CHF: Yes. Patient is not on an DAIJA-I/ARB because of renal og lure. Patient is [...] I-CAPS 280-10-2 mg Cap Generic drug: antiox.mv no.[id number]-[id number] Take 1 capsule by mouth once daily. [...] (Non-Steroidal Anti-Inflammatory Drug) Renal Failure Avoid per Produce Clerk recommendations Sulfa (Sulfonamide Antibiotics) Rash Vital Signs [...] information for after-discharge care [facility] . Specialty: Acute Care Hospital Contact information [address] [facility] [place] [address] [place] Location: [facility] swing bed unit Appointments: Dr. Hyde on 07/23/18 at 10:40am. The discharge note was forwarded to the PCP for review. Discharging Physician: Ann Mahmood MD Suggested CPT: 75982 Discharge Management > 30 minute I spent more than 35 minutes rwpa-xv-syyz with the patient of which 70% was [...] by | | | | | | no.[id number] | mouth once daily. | | | [...] mouth. | | | | | | 5-mct-lco-fish oil | | | | | | [...] negative pressure wound therapy dressing right knee 48x50gm Subjective: Doing ok overall. No CP/SOB. Tolerating [...] Plan to DC today to SNF in [place]. SNF can pull sutures at 2 weeks from operat kai date (June 27 is 2 weeks post op). Plan to return to Dr. Hyde' clinic 6 weeks an d also have ID clinic visit on that day. Appreciate [facility] and ID help in managing this [...] time. Elias Soriano MD [facility] Department of Orthopaedics and Rehabilitation PGY-1 Pager [phone] Ann Mahmood MD - 06/16/2018 4:42 PM PDTFormatting of this note may be different from the original. 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, and chronic venous insufficiency, w abiola was admitted from the ED to the [...] eta afua, statin, aldosterone antagonist, without recent DAIJA inbitor / ARB use given prog ressive [...] mg daily Dispo: Anticipate discharge tomorrow to [facility] swing bed unit if renal function is s table Code status: Full code Diet: Regular diet Prophy: warfarin and heparin Ann Mahmood MD Java Lead Engineerband maker Clinical Hospitalist and Medicine Teaching Services [facility] Pager [phone] Suggested CPT: 05989 Subsequent Visit Detailed/High complexity 35 min I spent 37 minutes bpcw-ln-jhks with the patient of which 78% was [...] negative pressure wound therapy dressing right knee [id number] Subjective: Doing ok overall. No CP/SOB. Tolerating [...] to home as t ransporting back to [place] may present the patient and family undo hardship. 6. Dressings/Drains: Pulled yesterday? 7. Dispo/Discharge: Anticipate discharge to SNF in next 1-3 days if all criteria met. 8. Follow-up: Please call the clinic to make a follow up appointment in approximately 2 wee dc with ORTHO TRAUMA & FRACTURE, . AP and lateral of R knee at that time. Elias Soriano MD [facility] Department of Orthopaedics and Rehabilitation PGY-1 Pager [phone] Tanvir Ayala - 06/16/2018 8:20 AM PDTFormatting of this note may be different from the natalia benjie. INPATIENT INFECTIOUS DISEASE PROGRESS NOTE ID TEAM: [...] three and a half hours away from [place]. At this time, we are unsur e of his ability to follow up with an OPAT clinic or if there is a provider near [place], where the patient resides. 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 This patient was staffed [facility] Dr. Villalobos, who agrees with the above assessment and plan unless otherwise documented. Tanvir Ayala, [facility] P SUBJECTIVE Interval Events: No acute events overnight S: patient reports he is feeling well this morning. States he was able to meet with a correctional casework specialist and had decided to go to a [...] beta afua, statin, aldosterone antagonist, without recent DAIJA inb itor / ARB use given progressive renal dysfunction. Also uses torsemide 20 mg bid at home. W ill likely need to restart diuretics once patient begins taking in more PO. - Lift Na/fluid restriction today - daily weights, strict I/Os - hold diuretics for now (torsemide, spironolactone) - cont carvedilol 12.5 mg bid - no DAIJA/ARB given renal dysfunction #DM2 - Non-insulin dependent. [...] MD Division of Hospital Medicine [facility] Pager [phone] I spent more than 35 minutes onqd-ox-qiqa with the patient of which greater than 50% was sp ent counseling the patient or in coordination of care. Sisi Pabol, AGACNP - 06/15/2018 7:40 AM PDTFormatting of this note may be different from the original. 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 Orthopaedic Procedure(s) & Date(s): 06/13/2018 1. Right knee arthrotomy with drainage for infection and polyethylene exchange 2. Application TINO disposible negative pressure wound therapy dressing right knee [id number] Subjective: Doing ok overall, not too much pain in right knee. Looking forward to getting backbreaker to home, "My wants to get back [...] final ID recs and PICC placement Appreciate [facility] and ID help in managing this [...] to home as t ransporting back to [place] may present the patient and family undo hardship. 6. Dressings/Drains: Continue drain 7. Dispo/Discharge: Anticipate discharge to SNF in next 1-3 days if all criteria met. 8. Follow-up: Please call the clinic to make a follow up appointment in approximately 2 wee ks with ORTHO TRAUMA & FRACTURE, . AP and lateral of R knee at that time. Sisi Pablo, [facility] Orthopaedic Trauma Surgery Pager [phone] Stephan Mercado MD - 06/14/2018 8:59 AM [...] 72 hours (or 3 results) Recent Labs 06/12/18222306/13/18 0436 06/14/18 0524 AST 40 60* 26 [...] afua, statin, aldosterone antagon ist, without recent DAIJA inbitor / ARB use given progressive renal dysfunction. Also uses tor semide 20 mg bid at home. Will likely need to restart diuretics once patient begins taking i n more PO. - Na/fluid restriction, daily weights, strict I/Os - no diuretics for now (torsemide, spironolactone) - cont carvedilol 12.5 mg bid - no DAIJA/ARB given renal dysfunction #DM2 - Non-insulin dependent. [...] MD Division of Hospital Medicine [facility] Pager [phone] I spent more than 35 minutes tudk-qg-vvnd with the patient of which greater than 50% was sp ent counseling the patient or in coordination of care. Sebas Pleitez MD - 06/14/2018 8:53 AM PDTFormatting [...] negative pressure wound therapy dressing right knee [id number] Subjective: Pain improving in R knee. Objective: [...] at that time. SEBAS PLEITEZ MD Pager [phone] Stephan Mercado MD - 06/13/2018 9:51 AM [...] Hours (or 3 results): Recent Labs 06/12/18 16206/12/18 2224 06/13/18 0436 NA 138 139 136 K 3.6 3.7 4.4 CL 100 100 103 BICARB 34* 33* 25 BUN 30* 28* 27* CR 1.63* 1.55* 1.66* CA 8.6 8.6 8.2* MG -- 1.8 -- PO4 3.7 -- -- Liver panel last 72 hours (or 3 results) Recent Labs 06/12/18 16206/12/18 2224 06/13/18 0436 AST 46* 40 60* [...] beta afua, statin, aldosterone antagonist, without recent DAIJA inbi tor / ARB use given progressive renal dysfunction. Also uses torsemide 20 mg bid at home. Wi ll likely need to restart diuretics once patient begins taking in more PO. - Na/fluid restriction, daily weights, strict I/Os - no diuretics for now (torsemide, spironolactone) - cont carvedilol 12.5 mg bid - no DAIJA/ARB given renal dysfunction #DM2 - Non-insulin dependent. [...] MD Division of Hospital Medicine [facility] Pager [phone] I spent more than 35 minutes kuqj-ka-amaw with the patient of which greater than 50% was sp ent counseling the patient or in coordination of care. Sebas Pleitez MD - 06/13/2018 8:20 AM PDTFormatting [...] negative pressure wound therapy dressing right knee [id number] Subjective: Painful in R knee today, but [...] at that time. SEBAS PLEITEZ MD Pager [phone] Stephan Mercado MD - 06/12/2018 1:24 PM [...] DM2 (a1c 6.2), CKD (baseline Cr ~1.7), ESUN, severe cervical stenosis, hx of DVT 2013 [...] beta afua, statin, aldosterone antagonist, without recent DAIJA inbi tor / ARB use given progressive renal dysfunction. Also uses torsemide 20 mg bid at home. - Na/fluid restriction, daily weights, strict I/Os - no diuretics for now - cont carvedilol 12.5 mg bid - hold spironolactone for now - no DAIJA/ARB given renal dysfunction #DM2 - Non-insulin dependent. [...] MD Division of Hospital Medicine [facility] Pager [phone] I spent more than 35 minutes fngk-jr-fzrb with the patient of which greater than 50% was sp ent counseling the patient or in coordination of care. in this encounter Plan of Treatment +--------+ + + + + | Date | Type | Specialty | Care Team | Description | +--------+ + + + + | 07/14/ | Appointment | Radiology | Sandoval Hyde, | | | 2017 | | | [address] | | | | | | [address] | | | | | | [place], [place] | | | | | | [address] | | | | | | [phone] | | | | | | | | +--------+ + + + + | 07/15/ | Office | Infectious Disease | Abril Shields, | | | 2017 | Visit | | [address] [facility] | | | | | | [address] | | | | | | [place], [place] | | | | | | [address] | | | | | | [phone] | | | | | | | | +--------+ + + + + + +--------+ + + | Name | Priori | Associated Diagnoses | Date/Time | | | ty | | | + +--------+ + + | TYPE AND SCREEN | Urgent | | 06/12/2018 10:23 PM | | | | | PDT | + +--------+ + + + +--------+ + + | Name | Priori | Associated Diagnoses | Order Schedule | | | ty | | | + +--------+ + + | TYPE [...] | 06/12/2018 | + +--------+ + + as of [...] section. | + +--------+ + + + in this encounter Results CAPILLARY BLOOD GLUCOSE (NO CHG), POC (06/17/2018 8:59 AM) + +---------+ + + | Component | Value | Ref Range | Performed At | + +---------+ + + | BLOOD GLUCOSE, POC | 135 (H) | 70 - 99 mg/dL | [facility] | | | | | [facility] | | | | | CARE TESTS | + +---------+ + + + + + + + | Performing | Address | City/State/Zipcode | Phone Number | | Organization | | | | + + + + + | [facility] | [address] | [place], [place] | | | [facility] | [address] | [address] | | | TESTS | | | | + + + + + INR (06/17/2018 3:59 AM) + + + + + | Component | Value | Ref Range | Performed At | + + + + + | INR | 1.78 (H) | 0.90 - 1.20 INR | [facility] | | | | | SERVICES, CORE | + + + + + + + | Specimen | + + | Blood - Blood | + + + + + | Narrative | Performed At | + + + | INR Therapeutic ranges for full anticoagulation: INR for | [facility] | | Venous Thromboembolism (2.0 - 3.0) INR INR | LABORATORY | | for most patients with mech. valves (2.5 - 3.5) INR | [facility] | + + + + + + + + | Performing | Address | City/State/Zipcode | Phone Number | | Organization | | | | + + + + + | [facility] | [address] | [place] [address] | | | SERVICES, [facility] | [address] | | | + + + + + BASIC METABOLIC SET (NA, K, CL, TCO2, BUN, CR, GLU, CA) (06/17/2018 3:59 AM) + + + + + | Component | Value | Ref Range | Performed At | + + + + + | GLUCOSE, PLASMA | 154 (H) | 70 - 99 mg/dL | [facility] | | (LAB) | | | SERVICES, CORE | + + + + + | BUN, PLASMA (LAB) | 40 (H) | 6 - 20 mg/dL | [facility] | | | | | SERVICES, CORE | + + + + + | CREATININE PLASMA | 1.73 (H) | 0.70 - 1.30 mg/dL | [facility] | | (LAB) | | | SERVICES, CORE | + + + + + | EGFR - | 46 (L) | >60 mL/min | [facility] | | DUTCH | | | SERVICES, CORE | + + + + + | EGFR NON | 38 (L) | >60 mL/min | [facility] | | -DUTCH | | | SERVICES, CORE | + + + + + | SODIUM, PLASMA (LAB) | 138 | 136 - 145 mmol/L | [facility] | | | | | SERVICES, CORE | + + + + + | POTASSIUM, PLASMA | 4.0 | 3.4 - 5.0 mmol/L | [facility] | | (LAB) | | | SERVICES, CORE | + + + + + | CHLORIDE, PLASMA | 101 | 97 - 108 mmol/L | [facility] | | (LAB) | | | SERVICES, CORE | + + + + + | TOTAL CO2, PLASMA | 32 | 21 - 32 mmol/L | [facility] | | (LAB) | | | SERVICES, CORE | + + + + + | CALCIUM, PLASMA | 8.5 (L) | 8.6 - 10.2 mg/dL | [facility] | | (LAB) | | | SERVICES, CORE | + + + + + | ANION GAP | 5 | 4 - 11 mmol/L | [facility] | | | | | SERVICES, CORE | + + + + + | POTASSIUM CMNT | No Hemo | | [facility] | | | | | SERVICES, CORE | + + + + + + + | Specimen | + + | Blood - Blood | + + + + + | Narrative | Performed At | + + + | GFR is estimated using the MDRD equation recommended by the | [facility] | | National Kidney Disease Education Program. Estimated GFR | LABORATORY | | Interpretive Information: <60 mL/min/1.73 sq | SERVICES, CORE | | m Chronic Kidney Disease <15 mL/min/1.73 | | | sq m Kidney Failure Estimated GFR greater | | | that 60 mL/min/1.73 sq m is of limited clinical value. The MDRD | | | equation is not valid in the following situations: - Patients under | | | 18 years of age - Severe malnutrition or obesity - Vegetarian diet | | | - Rapidly changing kidney function - Amputees, paraplegics, or other | | | muscle-wasting diseses | | + + + + + + + + | Performing | Address | City/State/Zipcode | Phone Number | | Organization | | | | + + + + + | [facility] | [address] | [place] [address] | | | SERVICES, CORE | [address] | | | + + + + + CAPILLARY BLOOD GLUCOSE (NO CHG), POC (06/16/2018 11:20 PM) + +---------+ + + | Component | Value | Ref Range | Performed At | + +---------+ + + | BLOOD GLUCOSE, POC | 204 (H) | 70 - 99 mg/dL | [facility] | | | | | [facility] | | | | | CARE TESTS | + +---------+ + + + + + + + | Performing | Address | City/State/Zipcode | Phone Number | | Organization | | | | + + + + + | [facility] | [address] | [place], [place] | | | [facility] | [address] | [address] | | | TESTS | | | | + + + + + CAPILLARY BLOOD GLUCOSE (NO CHG), POC (06/16/2018 6:31 PM) + +---------+ + + | Component | Value | Ref Range | Performed At | + +---------+ + + | BLOOD GLUCOSE, POC | 284 (H) | 70 - 99 mg/dL | [facility] | | | | | [facility] | | | | | CARE TESTS | + +---------+ + + + + + + + | Performing | Address | City/State/Zipcode | Phone Number | | Organization | | | | + + + + + | [facility] | [address] | [place], [place] | | | [facility] | [address] | [phone] | | | TESTS | | | | + + + + + X-RAY PORTABLE CHEST 1 VIEW (06/16/2018 4:29 PM) + + + | Narrative | Performed At | + + + | EXAM: CA CHEST 1 VIEW HISTORY: PICC placement. Prosthetic [...] Pérez 06/16/2018 4:43 PM Preliminary: Claribel Byrnes | | | Dictation initiated: Claribel Byrnes MD 06/16/2018 4:27 | | | PM | | + + + + + | Procedure Note | + + | Service Account, [facility] - 06/16/2018 4:44 PM PDT EXAM: CA CHEST 1 | | VIEW HISTORY: PICC [...] +---------+ + + PICC LINE (06/16/2018 3:40 PM) + + + | Narrative | Performed At | + + + | Frances Evans RN 06/16/2018 3:44 PM PICC LINE Performed | | | by: FRANCES EVANS Authorized by: ANN MAHMOOD PICC/Stacey | | | Insertion Procedure Note Indications:Administration IV fluids and | | | meds, Antibiotics and Frequent lab draws Procedure location: | | | Unit:9 KPV Room: 14 Providers: Attending name: Attending | [...] | | | correct patient, procedure, equipment, shipping support clerk and site/side | | | marked as required. CLABSI Prevention Bundle: Skin | | | preparation: Chloraprep Protective barrier: Cap, Mask, | | | Hand scrub, Gown, Gloves and Full body drape. Cap and mask worn by | | | assistive personnel.Sterile Ultrasound techniques (sterile gel, and | | | sterile probe cover) used | | | Dressing: Dressing applied prior of | | | removal of full barrier drape and hemostatic agent applied | | | Procedure Details Patient was placed in appropriate position The | | | vascular anatomy was identified by Ultrasound Guidance.wire through | | | the needle, introducer over the wire, then catheter through the | | | introducer Tip was placed using TLS (Tip Locating System) and TPS | | | (Tip Positioning System). . A non-tunneled PICC Single lumen 4 | | | Fr was placed in the Right Arm area Basilic vein. Catheter lot | | | number: [id number] with a length of 55 cm was selected and trimmed | | | 14 to a remaining length of 41 cm All ports aspirated for | | | blood and flushed with saline Procedure comments: Vessel diameter | | | measured without tourniquet at 0.45cm Upper arm measured 10cm above | | | the AC at 30.5cm Power-injectable line: yes Attempts 1 attempt(s) | | | were made Complications None PICC catheter tip location Chest | | | radiograph ordered to verify placement and Line verified by | | | radiograph Adjustments made after chest film obtained: None External | | | measurement of catheter exposed: 0 cm. PICC catheter tip location: | | | Distal SVC Estimated blood loss: <10mL | | + + + VAT: PICC INSERTION W/US (06/16/2018 2:15 PM) + + + | Narrative | Performed At | + + + | See procedure note. | | + + + CAPILLARY BLOOD GLUCOSE (NO CHG), POC (06/16/2018 9:03 AM) + +---------+ + + | Component | Value | Ref Range | Performed At | + +---------+ + + | BLOOD GLUCOSE, POC | 123 (H) | 70 - 99 mg/dL | [facility] | | | | | [facility] | | | | | CARE TESTS | + +---------+ + + + + + + + | Performing | Address | City/State/Zipcode | Phone Number | | Organization | | | | + + + + + | [facility] | [address] | [place], [place] | | | [facility] | [address] | [address] | | | TESTS | | | | + + + + + INR (06/16/2018 4:23 AM) + + + + + | Component | Value | Ref Range | Performed At | + + + + + | INR | 1.51 (H) | 0.90 - 1.20 INR | [facility] | | | | | SERVICES, CORE | + + + + + + + | Specimen | + + | Blood - Blood | + + + + + | Narrative | Performed At | + + + | INR Therapeutic ranges for full anticoagulation: INR for | [facility] | | Venous Thromboembolism (2.0 - 3.0) INR INR | LABORATORY | | for most patients with mech. valves (2.5 - 3.5) INR | [facility] | + + + + + + + + | Performing | Address | City/State/Zipcode | Phone Number | | Organization | | | | + + + + + | [facility] | [address] | [place] [address] | | | [facility] | [address] | | | + + + + + BASIC METABOLIC SET (NA, K, CL, TCO2, BUN, CR, GLU, CA) (06/16/2018 4:23 AM) + + + + + | Component | Value | Ref Range | Performed At | + + + + + | GLUCOSE, PLASMA | 122 (H) | 70 - 99 mg/dL | [facility] | | (LAB) | | | SERVICES, CORE | + + + + + | BUN, PLASMA (LAB) | 45 (H) | 6 - 20 mg/dL | [facility] | | | | | SERVICES, CORE | + + + + + | CREATININE PLASMA | 2.03 (H) | 0.70 - 1.30 mg/dL | [facility] | | (LAB) | | | SERVICES, CORE | + + + + + | EGFR - | 38 (L) | >60 mL/min | [facility] | | DUTCH | | | SERVICES, CORE | + + + + + | EGFR NON | 32 (L) | >60 mL/min | [facility] | | -DUTCH | | | SERVICES, CORE | + + + + + | SODIUM, PLASMA (LAB) | 135 (L) | 136 - 145 mmol/L | [facility] | | | | | SERVICES, CORE | + + + + + | POTASSIUM, PLASMA | 3.7 | 3.4 - 5.0 mmol/L | [facility] | | (LAB) | | | SERVICES, CORE | + + + + + | CHLORIDE, PLASMA | 99 | 97 - 108 mmol/L | [facility] | | (LAB) | | | SERVICES, CORE | + + + + + | TOTAL CO2, PLASMA | 32 | 21 - 32 mmol/L | [facility] | | (LAB) | | | SERVICES, CORE | + + + + + | CALCIUM, PLASMA | 8.2 (L) | 8.6 - 10.2 mg/dL | [facility] | | (LAB) | | | SERVICES, CORE | + + + + + | ANION GAP | 4 | 4 - 11 mmol/L | [facility] | | | | | SERVICES, CORE | + + + + + | POTASSIUM CMNT | No Hemo | | [facility] | | | | | SERVICES, CORE | + + + + + + + | Specimen | + + | Blood - Blood | + + + + + | Narrative | Performed At | + + + | GFR is estimated using the MDRD equation recommended by the | [facility] | | National Kidney Disease Education Program. Estimated GFR | LABORATORY | | Interpretive Information: <60 mL/min/1.73 sq | SERVICES, CORE | | m Chronic Kidney Disease <15 mL/min/1.73 | | | sq m Kidney Failure Estimated GFR greater | | | that 60 mL/min/1.73 sq m is of limited clinical value. The MDRD | | | equation is not valid in the following situations: - Patients under | | | 18 years of age - Severe malnutrition or obesity - Vegetarian diet | | | - Rapidly changing kidney function - Amputees, paraplegics, or other | | | muscle-wasting diseses | | + + + + + + + + | Performing | Address | City/State/Zipcode | Phone Number | | Organization | | | | + + + + + | [facility] | [address] | [place] [address] | | | SERVICES, CORE | [address] | | | + + + + + CAPILLARY BLOOD GLUCOSE (NO CHG), POC (06/15/2018 10:26 PM) + +---------+ + + | Component | Value | Ref Range | Performed At | + +---------+ + + | BLOOD GLUCOSE, POC | 208 (H) | 70 - 99 mg/dL | [facility] | | | | | [facility] | | | | | CARE TESTS | + +---------+ + + + + + + + | Performing | Address | City/State/Zipcode | Phone Number | | Organization | | | | + + + + + | [facility] | [address] | [place], [place] | | | [facility] CARE | [facility] | [phone] | | | TESTS | | | | + + + + + CAPILLARY BLOOD GLUCOSE (NO CHG), POC (06/15/2018 6:52 PM) + +---------+ + + | Component | Value | Ref Range | Performed At | + +---------+ + + | BLOOD GLUCOSE, POC | 264 (H) | 70 - 99 mg/dL | [facility] | | | | | [facility] | | | | | CARE TESTS | + +---------+ + + + + + + + | Performing | Address | City/State/Zipcode | Phone Number | | Organization | | | | + + + + + | [facility] | [address] | [place], [place] | | | [facility] | [facility] | [phone] | | | TESTS | | | | + + + + + CAPILLARY BLOOD GLUCOSE (NO CHG), POC (06/15/2018 9:29 AM) + +---------+ + + | Component | Value | Ref Range | Performed At | + +---------+ + + | BLOOD GLUCOSE, POC | 134 (H) | 70 - 99 mg/dL | [facility] | | | | | [facility] | | | | | CARE TESTS | + +---------+ + + + + + + + | Performing | Address | City/State/Zipcode | Phone Number | | Organization | | | | + + + + + | [facility] | [address] [address] | [place], [place] | | | [facility] | [address] | [address] | | | TESTS | | | | + + + + + CBC AND AUTO DIFF (06/15/2018 7:04 AM) + + + + + | Component | Value | Ref Range | Performed At | + + + + + | WHITE CELL COUNT | 10.00 | 3.50 - 10.80 K/cu mm | [facility] | | | | | SERVICES, CORE | + + + + + | RED CELL COUNT | 3.10 (L) | 4.50 - 6.00 M/cu mm | [facility] | | | | | SERVICES, CORE | + + + + + | HEMOGLOBIN | 9.5 (L) | 13.5 - 17.5 g/dL | [facility] | | | | | SERVICES, CORE | + + + + + | HEMATOCRIT | 28.8 (L) | 41.0 - 53.0 % | [facility] | | | | | SERVICES, CORE | + + + + + | MCV | 92.9 | 80.0 - 100.0 fL | [facility] | | | | | SERVICES, CORE | + + + + + | MCHC | 33.0 | 32.0 - 36.0 g/dL | [facility] | | | | | SERVICES, CORE | + + + + + | RDW SD | 61.3 (H) | 35.1 - 46.3 fL | [facility] | | | | | SERVICES, CORE | + + + + + | PLATELET COUNT | 216 | 150 - 400 K/cu mm | [facility] | | | | | SERVICES, CORE | + + + + + | MPV | 9.4 (L) | 9.7 - 12.3 fL | [facility] | | | | | SERVICES, CORE | + + + + + | NRBC% | 0.0 | 0.0 - 0.3 % | [facility] | | | | | SERVICES, CORE | + + + + + | NRBC# | 0.00 | 0.00 - 0.02 K/cu mm | [facility] | | | | | SERVICES, CORE | + + + + + | NEUTROPHIL % | 66.7 | 50.0 - 70.0 % | [facility] | | | | | SERVICES, CORE | + + + + + | LYMPHOCYTE % | 21.4 | 18.0 - 42.0 % | [facility] | | | | | SERVICES, CORE | + + + + + | MONOCYTE % | 10.5 (H) | 3.5 - 9.0 % | [facility] | | | | | SERVICES, CORE | + + + + + | EOS % | 0.7 (L) | 1.0 - 3.0 % | [facility] | | | | | SERVICES, CORE | + + + + + | BASO % | 0.2 | 0.0 - 2.0 % | [facility] | | | | | SERVICES, CORE | + + + + + | IG% | 0.5Comment: Increased | 0.0 - 1.0 % | [facility] | | | immature granulocytes | | SERVICES, CORE | | | (IG) define a left | | | | | shift. Immature | | | | | granulocytes (IG) are an | | | | | automated count of | | | | | metamyelocytes, | | | | | myelocytes and | | | | | promyelocytes. Bands | | | | | are not included in the | | | | | IG count. Bands are | | | | | included in the | | | | | neutrophil count. | | | + + + + + | NEUTROPHIL # | 6.67 | 1.80 - 7.70 K/cu mm | [facility] | | | | | SERVICES, CORE | + + + + + | LYMPHOCYTE # | 2.14 | 1.00 - 4.80 K/cu mm | [facility] | | | | | SERVICES, CORE | + + + + + | MONOCYTE # | 1.05 (H) | 0.10 - 0.90 K/cu mm | [facility] | | | | | SERVICES, CORE | + + + + + | EOS # | 0.07 | 0.00 - 0.50 K/cu mm | [facility] | | | | | SERVICES, CORE | + + + + + | BASO # | 0.02 | 0.00 - 0.10 K/cu mm | [facility] | | | | | SERVICES, CORE | + + + + + | IG# | 0.05 | 0.00 - 0.10 K/cu mm | [facility] | | | | | SERVICES, CORE | + + + + + + + | Specimen | + + | Blood - Blood | + + + + + | [...] | + + + + + | [facility] | [address] | [place] [address] | | | SERVICES, CORE | [address] | | | + + + + + BASIC METABOLIC SET (NA, K, CL, TCO2, BUN, CR, GLU, CA) (06/15/2018 7:04 AM) + + + + + | Component | Value | Ref Range | Performed At | + + + + + | GLUCOSE, PLASMA | 118 (H) | 70 - 99 mg/dL | [facility] | | (LAB) | | | STEF, CORE | + + + + + | BUN, PLASMA (LAB) | 44 (H) | 6 - 20 mg/dL | [facility] | | | | | SERVICES, CORE | + + + + + | CREATININE PLASMA | 2.10 (H) | 0.70 - 1.30 mg/dL | [facility] | | (LAB) | | | STEF, CORE | + + + + + | EGFR - | 37 (L) | >60 mL/min | [facility] | | DUTCH | | | STEF, [facility] | + + + + + | EGFR NON | 31 (L) | >60 mL/min | [facility] | | -DUTCH | | | STEF, CORE | + + + + + | SODIUM, PLASMA (LAB) | 135 (L) | 136 - 145 mmol/L | [facility] | | | | | SERVICES, CORE | + + + + + | POTASSIUM, PLASMA | 4.0 | 3.4 - 5.0 mmol/L | [facility] | | (LAB) | | | SERVICES, CORE | + + + + + | CHLORIDE, PLASMA | 97 | 97 - 108 mmol/L | [facility] | | (LAB) | | | SERVICES, CORE | + + + + + | TOTAL CO2, PLASMA | 29 | 21 - 32 mmol/L | [facility] | | (LAB) | | | SERVICES, CORE | + + + + + | CALCIUM, PLASMA | 8.2 (L) | 8.6 - 10.2 mg/dL | [facility] | | (LAB) | | | SERVICES, CORE | + + + + + | ANION GAP | 9 | 4 - 11 mmol/L | [facility] | | | | | SERVICES, CORE | + + + + + | POTASSIUM CMNT | No Hemo | | [facility] | | | | | SERVICES, CORE | + + + + + + + | Specimen | + + | Blood - Blood | + + + + + | Narrative | Performed At | + + + | GFR is estimated using the MDRD equation recommended by the | [facility] | | National Kidney Disease Education Program. Estimated GFR | LABORATORY | | Interpretive Information: <60 mL/min/1.73 sq | SERVICES, CORE | | m Chronic Kidney Disease <15 mL/min/1.73 | | | sq m Kidney Failure Estimated GFR greater | | | that 60 mL/min/1.73 sq m is of limited clinical value. The MDRD | | | equation is not valid in the following situations: - Patients under | | | 18 years of age - Severe malnutrition or obesity - Vegetarian diet | | | - Rapidly changing kidney function - Amputees, paraplegics, or other | | | muscle-wasting diseses | | + + + + + + + + | Performing | Address | City/State/Zipcode | Phone Number | | Organization | | | | + + + + + | [facility] | [address] | [place] [address] | | | K[facility] FINCH | [address] | | | + + + + + EOSINOPHILS, URINE (SPOT) (06/15/2018 6:49 AM) + +-------+ + + | Component | Value | Ref Range | Performed At | + +-------+ + + | URINE EOSINOPHILS | <1 | <1 % | [facility] | | | | | SERVICES, CORE | + +-------+ + + + + | Specimen | + + | Urine - Urine | + + + + + + + | Performing | Address | City/State/Zipcode | Phone Number | | Organization | | | | + + + + + | [facility] | [address] | [place] [address] | | | KAREEM FINCH | [address] | | | + + + + + UREA NITROGEN, URINE (06/15/2018 6:49 AM) + +--------+ + + | Component | Value | Ref Range | Performed At | + +--------+ + + | UREA NITRO CONC UR | 743 | mg/dL | [facility] | | | | | SERVICES, CORE | + +--------+ + + | URINE INTERVAL | Random | | [facility] | | | | | SERVICES, CORE | + +--------+ + + | URINE VOLUME | Spot | | [facility] | | | | | SERVICES, CORE | + +--------+ + + + + | Specimen | + + | Urine - Urine | + + + + + | [...] [facility] | [address] | [place] [address] | | | SERVICESKAREEM | [address] | | | + + + + + CREATININE, URINE (06/15/2018 6:49 AM) + +--------+ + + | Component | Value | Ref Range | Performed At | + +--------+ + + | CREATININE CONC UR | 269.00 | mg/dL | [facility] | | | | | SERVICES, CORE | + +--------+ + + | URINE INTERVAL | Random | | [facility] | | | | | SERVICES, CORE | + +--------+ + + | URINE VOLUME | Spot | | [facility] | | | | | SERVICES, CORE | + +--------+ + + + + | Specimen | + + | Urine - Urine | + + + + + | [...] | + + + + + | [facility] | [address] | [place] [address] | | | KAREEM FINCH | [address] | | | + + + + + SODIUM TOTAL, URINE (06/15/2018 6:49 AM) + +--------+ + + | Component | Value | Ref Range | Performed At | + +--------+ + + | SODIUM CONC URINE | 5 | mmol/L | [facility] | | | | | [facility] | + +--------+ + + | URINE INTERVAL | Random | | [facility] | | | | | SERVICES, CORE | + +--------+ + + | URINE VOLUME | Spot | | [facility] | | | | | SERVICES, CORE | + +--------+ + + + + | Specimen | + + | Urine - Urine | + + + + + | [...] | + + + + + | [facility] | [address] | [place] [address] | | | SERVICES, CORE | [address] | | | + + + + + CARDIOLOGY (06/15/2018) + + + | Narrative | Performed At | + + + | | | + + + CAPILLARY BLOOD GLUCOSE (NO CHG), POC (06/14/2018 9:30 PM) + +---------+ + + | Component | Value | Ref Range | Performed At | + +---------+ + + | BLOOD GLUCOSE, POC | 203 (H) | 70 - 99 mg/dL | [facility] | | | | | [facility] | | | | | [facility]ARE TESTS | + +---------+ + + + + + + + | Performing | Address | City/State/Zipcode | Phone Number | | Organization | | | | + + + + + | [facility] | [address] | [place], [place] | | | [facility] | [address] | [address] | | | TESTS | | | | + + + + + BASIC METABOLIC SET (NA, K, CL, TCO2, BUN, CR, GLU, CA) (06/14/2018 6:00 PM) + + + + + | Component | Value | Ref Range | Performed At | + + + + + | GLUCOSE, PLASMA | 192 (H) | 70 - 99 mg/dL | [facility] | | (LAB) | | | SERVICES, CORE | + + + + + | BUN, PLASMA (LAB) | 38 (H) | 6 - 20 mg/dL | [facility] | | | | | SERVICES, CORE | + + + + + | CREATININE PLASMA | 2.17 (H) | 0.70 - 1.30 mg/dL | [facility] | | (LAB) | | | SERVICES, CORE | + + + + + | EGFR - | 36 (L) | >60 mL/min | [facility] | | DUTCH | | | SERVICES, CORE | + + + + + | EGFR NON | 29 (L) | >60 mL/min | [facility] | | -DUTCH | | | SERVICES, CORE | + + + + + | SODIUM, PLASMA (LAB) | 135 (L) | 136 - 145 mmol/L | [facility] | | | | | SERVICES, CORE | + + + + + | POTASSIUM, PLASMA | 4.1 | 3.4 - 5.0 mmol/L | [facility] | | (LAB) | | | SERVICES, CORE | + + + + + | CHLORIDE, PLASMA | 97 | 97 - 108 mmol/L | [facility] | | (LAB) | | | SERVICES, CORE | + + + + + | TOTAL CO2, PLASMA | 34 (H) | 21 - 32 mmol/L | [facility] | | (LAB) | | | SERVICES, CORE | + + + + + | CALCIUM, PLASMA | 8.0 (L) | 8.6 - 10.2 mg/dL | [facility] | | (LAB) | | | SERVICES, CORE | + + + + + | ANION GAP | 4 | 4 - 11 mmol/L | [facility] | | | | | SERVICES, CORE | + + + + + | POTASSIUM CMNT | No Hemo | | [facility] | | | | | SERVICES, CORE | + + + + + + + | Specimen | + + | Blood - Blood | + + + + + | Narrative | Performed At | + + + | Please draw vancomycin trough immediately prior to 18:00 dose on | [facility] | | 06/14/18. Hold dose until Pharmacist confirms level is appropriate. | LABORATORY | | Page [phone] or [phone] with questions. Thank you. GFR is | SERVICES, CORE | | estimated using the MDRD equation recommended by the National Kidney | | | Disease Education Program. Estimated GFR Interpretive Information: | | | <60 mL/min/1.73 sq m Chronic Kidney | | | Disease <15 mL/min/1.73 sq m Kidney | | | Failure Estimated GFR greater that 60 mL/min/1.73 sq m is of limited | | | clinical value. The MDRD equation is not valid in the following | | | situations: - Patients under 18 years of age - Severe malnutrition | | | or obesity - Vegetarian diet - Rapidly changing kidney function - | | | Amputees, paraplegics, or other muscle-wasting diseses | | + + + + + + + + | Performing | Address | City/State/Zipcode | Phone Number | | Organization | | | | + + + + + | [facility] | [address] | [place] [address] | | | KAREEM FINCH | [address] | | | + + + + + INR (06/14/2018 6:00 PM) + + + + + | Component | Value | Ref Range | Performed At | + + + + + | INR | 1.44 (H) | 0.90 - 1.20 INR | [facility] | | | | | SERVICES, CORE | + + + + + + + | Specimen | + + | Blood - Blood | + + + + + | Narrative | Performed At | + + + | INR Therapeutic ranges for full anticoagulation: INR for | [facility] | | Venous Thromboembolism (2.0 - 3.0) INR INR | LABORATORY | | for most patients with mech. valves (2.5 - 3.5) INR | SERVICES, CORE | + + + + + + + + | Performing | Address | City/State/Zipcode | Phone Number | | Organization | | | | + + + + + | [facility] | [address] | [place] [address] | | | SERVICES, CORE | [address] | | | + + + + + VANCOMYCIN, TROUGH (06/14/2018 6:00 PM) + +-------+ + + | Component | Value | Ref Range | Performed At | + +-------+ + + | VANCOMYCIN, TROUGH | 12.9 | 10.0 - 20.0 ug/mL | [facility] | | | | | SERVICES, CORE | + +-------+ + + + + | Specimen | + + | Blood - Blood | + + + + + | Narrative | Performed At | + + + | Please draw vancomycin trough immediately prior to 18:00 dose on | [facility] | | 06/14/18. Hold dose until Pharmacist confirms level is appropriate. | LABORATORY | | Page [phone] or [phone] with questions. Thank you. | SERVICES, CORE | + + + + + + + + | Performing | Address | City/State/Zipcode | Phone Number | | Organization | | | | + + + + + | [facility] | [address] | [place] [address] | | | SERVICES, CORE | [address] | | | + + + + + CAPILLARY BLOOD GLUCOSE (NO CHG), POC (06/14/2018 3:38 PM) + +---------+ + + | Component | Value | Ref Range | Performed At | + +---------+ + + | BLOOD GLUCOSE, POC | 216 (H) | 70 - 99 mg/dL | [facility] | | | | | [facility] | | | | | CARE TESTS | + +---------+ + + + + + + + | Performing | Address | City/State/Zipcode | Phone Number | | Organization | | | | + + + + + | [facility] | [address] | [place], [place] | | | [facility] | [address] | [address] | | | TESTS | | | | + + + + + CAPILLARY BLOOD GLUCOSE (NO CHG), POC (06/14/2018 9:52 AM) + +--------+ + + | Component | Value | Ref Range | Performed At | + +--------+ + + | BLOOD GLUCOSE, POC | 59 (L) | 70 - 99 mg/dL | [facility] | | | | | [facility] | | | | | CARE TESTS | + +--------+ + + + + + + + | Performing | Address | City/State/Zipcode | Phone Number | | Organization | | | | + + + + + | [facility] | [address] | [place], [place] | | | [facility] | [address] | [address] | | | TESTS | | | | + + + + + CBC (HEMOGRAM) ONLY (06/14/2018 5:24 AM) + + + + + | Component | Value | Ref Range | Performed At | + + + + + | WHITE CELL COUNT | 12.05 (H) | 3.50 - 10.80 K/cu mm | [facility] | | | | | SERVICES CORE | + + + + + | RED CELL COUNT | 3.23 (L) | 4.50 - 6.00 M/cu mm | [facility] | | | | | SERVICES, CORE | + + + + + | HEMOGLOBIN | 9.9 (L) | 13.5 - 17.5 g/dL | [facility] | | | | | SERVICES, CORE | + + + + + | HEMATOCRIT | 30.1 (L) | 41.0 - 53.0 % | [facility] | | | | | SERVICES, CORE | + + + + + | MCV | 93.2 | 80.0 - 100.0 fL | [facility] | | | | | SERVICES, CORE | + + + + + | MCHC | 32.9 | 32.0 - 36.0 g/dL | [facility] | | | | | SERVICES, CORE | + + + + + | RDW SD | 61.1 (H) | 35.1 - 46.3 fL | [facility] | | | | | SERVICES, CORE | + + + + + | PLATELET COUNT | 186 | 150 - 400 K/cu mm | [facility] | | | | | SERVICES, CORE | + + + + + | MPV | 9.4 (L) | 9.7 - 12.3 fL | [facility] | | | | | SERVICES, CORE | + + + + + | NRBC% | 0.0 | 0.0 - 0.3 % | [facility] | | | | | SERVICES, CORE | + + + + + | NRBC# | 0.00 | 0.00 - 0.02 K/cu mm | [facility] | | | | | SERVICES, CORE | + + + + + + + | Specimen | + + | Blood - Blood | + + + + + | [...] + + + + + | [facility] | [address] | [place] [address] | | | KAREEM FINCH | [address] | | | + + + + + COMPLETE METABOLIC SET (NA,K,CL,CO2,BUN,CREAT,GLUC,CA,AST,ALT,BILI TOTAL,ALK PHOS,ALB,PROT TOTAL) (06/14/2018 5:24 AM) + + + + + | Component | Value | Ref Range | Performed At | + + + + + | GLUCOSE, PLASMA | 81 | 70 - 99 mg/dL | [facility] | | (LAB) | | | SERVICES, CORE | + + + + + | BUN, PLASMA (LAB) | 23 (H) | 6 - 20 mg/dL | [facility] | | | | | SERVICES, CORE | + + + + + | CREATININE PLASMA | 2.08 (H) | 0.70 - 1.30 mg/dL | [facility] | | (LAB) | | | SERVICES, CORE | + + + + + | EGFR - | 37 (L) | >60 mL/min | [facility] | | DUTCH | | | SERVICES, CORE | + + + + + | EGFR NON | 31 (L) | >60 mL/min | [facility] | | -DUTCH | | | SERVICES, CORE | + + + + + | SODIUM, PLASMA (LAB) | 136 | 136 - 145 mmol/L | [facility] | | | | | SERVICES, CORE | + + + + + | POTASSIUM, PLASMA | 3.6 | 3.4 - 5.0 mmol/L | [facility] | | (LAB) | | | SERVICES, CORE | + + + + + | CHLORIDE, PLASMA | 98 | 97 - 108 mmol/L | [facility] | | (LAB) | | | SERVICES, CORE | + + + + + | TOTAL CO2, PLASMA | 34 (H) | 21 - 32 mmol/L | [facility] | | (LAB) | | | SERVICES, CORE | + + + + + | CALCIUM, PLASMA | 8.0 (L) | 8.6 - 10.2 mg/dL | [facility] | | (LAB) | | | SERVICES, CORE | + + + + + | CALCIUM(ALB | 9.5 | 8.6 - 10.2 mg/dL | [facility] | | CORRECTED) | | | SERVICES, CORE | + + + + + | BILIRUBIN TOTAL | 0.9 | 0.3 - 1.2 mg/dL | [facility] | | | | | SERVICES, CORE | + + + + + | TOTAL PROTEIN, | 6.0 (L) | 6.4 - 8.2 g/dL | [facility] | | PLASMA (LAB) | | | SERVICES, CORE | + + + + + | ALBUMIN, PLASMA | 2.1 (L) | 3.5 - 4.7 g/dL | [facility] | | (LAB) | | | SERVICES, CORE | + + + + + | ALK PHOS | 42 (L) | 56 - 119 U/L | [facility] | | | | | SERVICES, CORE | + + + + + | AST(SGOT) | 26 | <=41 U/L | [facility] | | | | | SERVICES, CORE | + + + + + | ALT (SGPT) | 29 | <=60 U/L | [facility] | | | | | SERVICES, CORE | + + + + + | ANION GAP | 4 | 4 - 11 mmol/L | [facility] | | | | | SERVICES, CORE | + + + + + | ANION GAP(ALB | 8 | 4 - 11 mmol/L | [facility] | | CORRECTED) | | | SERVICES, CORE | + + + + + | POTASSIUM CMNT | No Hemo | | [facility] | | | | | SERVICES, CORE | + + + + + | YAMILA Faustin CMNT | No Hemo | | [facility] | | | | | SERVICES, CORE | + + + + + | AST CMNT | No Hemo | | [facility] | | | | | SERVICES, CORE | + + + + + + + | Specimen | + + | Blood - Blood | + + + + + | Narrative | Performed At | + + + | GFR is estimated using the MDRD equation recommended by the | [facility] | | National Kidney Disease Education Program. Estimated GFR | LABORATORY | | Interpretive Information: <60 mL/min/1.73 sq | SERVICES, CORE | | m Chronic Kidney Disease <15 mL/min/1.73 | | | sq m Kidney Failure Estimated GFR greater | | | that 60 mL/min/1.73 sq m is of limited clinical value. The MDRD | | | equation is not valid in the following situations: - Patients under | | | 18 years of age - Severe malnutrition or obesity - Vegetarian diet | | | - Rapidly changing kidney function - Amputees, paraplegics, or other | | | muscle-wasting diseses | | + + + + + + + + | Performing | Address | City/State/Zipcode | Phone Number | | Organization | | | | + + + + + | [facility] | [address] | [place] [address] | | | SERVICES, CORE | [address] | | | + + + + + CAPILLARY BLOOD GLUCOSE (NO CHG), POC (06/13/2018 9:36 PM) + +---------+ + + | Component | Value | Ref Range | Performed At | + +---------+ + + | BLOOD GLUCOSE, POC | 162 (H) | 70 - 99 mg/dL | [facility] | | | | | [facility] | | | | | CARE TESTS | + +---------+ + + + + + + + | Performing | Address | City/State/Zipcode | Phone Number | | Organization | | | | + + + + + | [facility] | [address] | [place], [place] | | | [facility] | [address] | [address] | | | TESTS | | | | + + + + + CAPILLARY BLOOD GLUCOSE (NO CHG), POC (06/13/2018 5:21 PM) + +---------+ + + | Component | Value | Ref Range | Performed At | + +---------+ + + | BLOOD GLUCOSE, POC | 139 (H) | 70 - 99 mg/dL | [facility] | | | | | [facility] | | | | | CARE TESTS | + +---------+ + + + + + + + | Performing | Address | City/State/Zipcode | Phone Number | | Organization | | | | + + + + + | [facility] | [address] | [place], [place] | | | [facility] | [facility] | [address] | | | TESTS | | | | + + + + + CAPILLARY BLOOD GLUCOSE (NO CHG), POC (06/13/2018 1:32 PM) + +---------+ + + | Component | Value | Ref Range | Performed At | + +---------+ + + | BLOOD GLUCOSE, POC | 130 (H) | 70 - 99 mg/dL | [facility] | | | | | [facility] | | | | | CARE TESTS | + +---------+ + + + + + + + | Performing | Address | City/State/Zipcode | Phone Number | | Organization | | | | + + + + + | [facility] | [address] | [place], [place] | | | [facility] | [address] | [address] | | | TESTS | | | | + + + + + 12 LEAD ECG (06/13/2018 10:28 AM) + + + + + | Component | Value | Ref Range | Performed At | + + + + + | VENTRICULAR RATE | 95 | bpm | [facility] | | | | | [facility]IOLOG[facility] | + + + + + | ATRIAL RATE | 96 | ms | [facility] | | | | | [facility]OLOG[facility] | + + + + + | P-R INTERVAL | 211 | ms | [facility] | | | | | [facility]ARD[facility]OLOG[facility] | + + + + + | P AXIS | 58 | deg | [facility] | | | | | [facility]ARDIOLOG[facility] | + + + + + | QRS DURATION | 149 | ms | [facility] | | | | | [facility]ARDIOLOG[facility] | + + + + + | QT | 339 | ms | [facility] | | | | | [facility]ARDIOLOGY | + + + + + | QTCB | 428 | ms | [facility] | | | | | [facility]ARDIOLOGY | + + + + + | R AXIS | 168 | deg | [facility] | | | | | [facility]ARDIOLOGY | + + + + + | T AXIS | -70 | deg | [facility] | | | | | CARDIOLOGY | + + + + + | ECG IMPRESSION | Sinus rhythm | | [facility] | | | | | CARDIOLOGY | + + + + + | ECG IMPRESSION | Ventricular premature | | [facility] | | | complex | | CARDIOLOGY | + + + + + | ECG IMPRESSION | Borderline prolonged CA | | [facility] | | | interval | | CARDIOLOGY | + + + + + | ECG IMPRESSION | Right bundle branch | | [facility] | | | block | | CARDIOLOGY | + + + + + | ECG IMPRESSION | Inferior infarct, age | | [facility] | | | indeterminate- ABNORMAL | | CARDIOLOGY | | | ECG - | | | + + + + + | ECG IMPRESSION | Electronically signed | | [facility] | | | by: SHAI SILVA | | CARDIOLOGY | | | 06-13-2018 11:04:56 | | | + + + + + + + + | Narrative | Performed At | + + + | | | + + + + + + + + | Performing | Address | City/State/Zipcode | Phone Number | | Organization | | | | + + + + + | [facility] | [address] | [place], [place] | | | CARDIOLOGY | [address] | [address] | | + + + + + CAPILLARY BLOOD GLUCOSE (NO CHG), POC (06/13/2018 8:17 AM) + +-------+ + + | Component | Value | Ref Range | Performed At | + +-------+ + + | BLOOD GLUCOSE, POC | 86 | 70 - 99 mg/dL | [facility] | | | | | [facility] | | | | | CARE TESTS | + +-------+ + + + + + + + | Performing | Address | City/State/Zipcode | Phone Number | | Organization | | | | + + + + + | [facility] | [address] | [place], [place] | | | [facility] | [facility] | [address] | | | TESTS | | | | + + + + + CBC (HEMOGRAM) ONLY (06/13/2018 4:36 AM) + + + + + | Component | Value | Ref Range | Performed At | + + + + + | WHITE CELL COUNT | 11.11 (H) | 3.50 - 10.80 K/cu mm | [facility] | | | | | SERVICES, CORE | + + + + + | RED CELL COUNT | 3.80 (L) | 4.50 - 6.00 M/cu mm | [facility] | | | | | SERVICES, CORE | + + + + + | HEMOGLOBIN | 11.7 (L) | 13.5 - 17.5 g/dL | [facility] | | | | | SERVICES, CORE | + + + + + | HEMATOCRIT | 35.2 (L) | 41.0 - 53.0 % | [facility] | | | | | SERVICES, CORE | + + + + + | MCV | 92.6 | 80.0 - 100.0 fL | [facility] | | | | | SERVICES, CORE | + + + + + | MCHC | 33.2 | 32.0 - 36.0 g/dL | [facility] | | | | | SERVICES, CORE | + + + + + | RDW SD | 62.4 (H) | 35.1 - 46.3 fL | [facility] | | | | | SERVICES, CORE | + + + + + | PLATELET COUNT | 136 (L) | 150 - 400 K/cu mm | [facility] | | | | | SERVICES, CORE | + + + + + | MPV | 9.9 | 9.7 - 12.3 fL | [facility] | | | | | SERVICES, CORE | + + + + + | NRBC% | 0.0 | 0.0 - 0.3 % | [facility] | | | | | SERVICES, CORE | + + + + + | NRBC# | 0.00 | 0.00 - 0.02 K/cu mm | [facility] | | | | | SERVICES, CORE | + + + + + + + | Specimen | + + | Blood - Blood | + + + + + | Narrative | Performed At | + + + | New reference ranges for MCV, MCHC, PLT, IG% and IG# effective | [facility] | | 03/05/2018 | LABORATORY | | | SERVICES, CORE | + + + + + + + + | Performing | Address | City/State/Zipcode | Phone Number | | Organization | | | | + + + + + | [facility] | [address] | [place] [address] | | | SERVICES, CORE | [address] | | | + + + + + COMPLETE METABOLIC SET (NA,K,CL,CO2,BUN,CREAT,GLUC,CA,AST,ALT,BILI TOTAL,ALK PHOS,ALB,PROT TOTAL) (06/13/2018 4:36 AM) + + + + + | Component | Value | Ref Range | Performed At | + + + + + | GLUCOSE, PLASMA | 94 | 70 - 99 mg/dL | [facility] | | (LAB) | | | SERVICES, CORE | + + + + + | BUN, PLASMA (LAB) | 27 (H) | 6 - 20 mg/dL | [facility] | | | | | SERVICES, CORE | + + + + + | CREATININE PLASMA | 1.66 (H) | 0.70 - 1.30 mg/dL | [facility] | | (LAB) | | | STEF, CORE | + + + + + | EGFR - | 48 (L) | >60 mL/min | [facility] | | DUTCH | | | STEF, CORE | + + + + + | EGFR NON | 40 (L) | >60 mL/min | [facility] | | -DUTCH | | | SERVICES, CORE | + + + + + | SODIUM, PLASMA (LAB) | 136 | 136 - 145 mmol/L | [facility] | | | | | SERVICES, CORE | + + + + + | POTASSIUM, PLASMA | 4.4 | 3.4 - 5.0 mmol/L | [facility] | | (LAB) | | | SERVICES, CORE | + + + + + | CHLORIDE, PLASMA | 103 | 97 - 108 mmol/L | [facility] | | (LAB) | | | SERVICES, CORE | + + + + + | TOTAL CO2, PLASMA | 25 | 21 - 32 mmol/L | [facility] | | (LAB) | | | SERVICES, CORE | + + + + + | CALCIUM, PLASMA | 8.2 (L) | 8.6 - 10.2 mg/dL | [facility] | | (LAB) | | | SERVICES, CORE | + + + + + | CALCIUM(ALB | 9.6 | 8.6 - 10.2 mg/dL | [facility] | | CORRECTED) | | | SERVICES, CORE | + + + + + | BILIRUBIN TOTAL | 1.1 | 0.3 - 1.2 mg/dL | [facility] | | | | | SERVICES, CORE | + + + + + | TOTAL PROTEIN, | 6.6 | 6.4 - 8.2 g/dL | [facility] | | PLASMA (LAB) | | | SERVICES, CORE | + + + + + | ALBUMIN, PLASMA | 2.3 (L) | 3.5 - 4.7 g/dL | [facility] | | (LAB) | | | SERVICES, CORE | + + + + + | ALK PHOS | 44 (L) | 56 - 119 U/L | [facility] | | | | | SERVICES, CORE | + + + + + | AST(SGOT) | 60 (H) | <=41 U/L | [facility] | | | | | SERVICES, CORE | + + + + + | ALT (SGPT) | 48 | <=60 U/L | [facility] | | | | | SERVICES, CORE | + + + + + | ANION GAP | 8 | 4 - 11 mmol/L | [facility] | | | | | SERVICES, CORE | + + + + + | ANION GAP(ALB | 12 (H) | 4 - 11 mmol/L | [facility] | | CORRECTED) | | | SERVICES, CORE | + + + + + | POTASSIUM CMNT | Sl Hemo | | [facility] | | | | | SERVICES, CORE | + + + + + | AST CMNT | Sl Hemo | | [facility] | | | | | SERVICES, CORE | + + + + + + + | Specimen | + + | Blood - Blood | + + + + + | [...] | Information: <60 mL/min/1.73 sq m Chronic | | | Kidney Disease <15 mL/min/1.73 sq m | [...] | + + + + + | [facility] | [address] | [place] [address] | | | SERVICES, [facility] | [address] | | | + + + + + MAGNESIUM, PLASMA (06/12/2018 10:24 PM) + +-------+ + + | Component | Value | Ref Range | Performed At | + +-------+ + + | MAGNESIUM,PLASMA | 1.8 | 1.6 - 2.6 mg/dL | [facility] | | | | | SERVICES, CORE | + +-------+ + + + + | Specimen | + + | Blood - Blood | + + + + + | [...] + + + | [facility] | [address] | [place] [address] | | | SERVICES, CORE | [address] | | | + + + + + COMPLETE METABOLIC SET (NA,K,CL,CO2,BUN,CREAT,GLUC,CA,AST,ALT,BILI TOTAL,ALK PHOS,ALB,PROT TOTAL) (06/12/2018 10:24 PM) + + + + + | Component | Value | Ref Range | Performed At | + + + + + | GLUCOSE, PLASMA | 136 (H) | 70 - 99 mg/dL | [facility] | | (LAB) | | | SERVICES, CORE | + + + + + | BUN, PLASMA (LAB) | 28 (H) | 6 - 20 mg/dL | [facility] | | | | | SERVICES, CORE | + + + + + | CREATININE PLASMA | 1.55 (H) | 0.70 - 1.30 mg/dL | [facility] | | (LAB) | | | SERVICES, CORE | + + + + + | EGFR - | 52 (L) | >60 mL/min | [facility] | | DUTCH | | | SERVICES, CORE | + + + + + | EGFR NON | 43 (L) | >60 mL/min | [facility] | | -DUTCH | | | STEF, CORE | + + + + + | SODIUM, PLASMA (LAB) | 139 | 136 - 145 mmol/L | [facility] | | | | | SERVICES, CORE | + + + + + | POTASSIUM, PLASMA | 3.7 | 3.4 - 5.0 mmol/L | [facility] | | (LAB) | | | SERVICES, CORE | + + + + + | CHLORIDE, PLASMA | 100 | 97 - 108 mmol/L | [facility] | | (LAB) | | | SERVICES, CORE | + + + + + | TOTAL CO2, PLASMA | 33 (H) | 21 - 32 mmol/L | [facility] | | (LAB) | | | SERVICES, CORE | + + + + + | CALCIUM, PLASMA | 8.6 | 8.6 - 10.2 mg/dL | [facility] | | (LAB) | | | SERVICES, CORE | + + + + + | CALCIUM(ALB | 9.7 | 8.6 - 10.2 mg/dL | [facility] | | CORRECTED) | | | SERVICES, CORE | + + + + + | BILIRUBIN TOTAL | 1.0 | 0.3 - 1.2 mg/dL | [facility] | | | | | SERVICES, CORE | + + + + + | TOTAL PROTEIN, | 6.9 | 6.4 - 8.2 g/dL | [facility] | | PLASMA (LAB) | | | SERVICES, CORE | + + + + + | ALBUMIN, PLASMA | 2.6 (L) | 3.5 - 4.7 g/dL | [facility] | | (LAB) | | | SERVICES, CORE | + + + + + | ALK PHOS | 48 (L) | 56 - 119 U/L | [facility] | | | | | SERVICES, CORE | + + + + + | AST(SGOT) | 40 | <=41 U/L | [facility] | | | | | SERVICES, CORE | + + + + + | ALT (SGPT) | 52 | <=60 U/L | [facility] | | | | | SERVICES, CORE | + + + + + | ANION GAP | 6 | 4 - 11 mmol/L | [facility] | | | | | SERVICES, CORE | + + + + + | ANION GAP(ALB | 9 | 4 - 11 mmol/L | [facility] | | CORRECTED) | | | SERVICES, CORE | + + + + + | POTASSIUM CMNT | No Hemo | | [facility] | | | | | SERVICES, CORE | + + + + + | BILI T CMNT | No Hemo | | [facility] | | | | | SERVICES, CORE | + + + + + | AST CMNT | No Hemo | | [facility] | | | | | SERVICES, CORE | + + + + + + + | Specimen | + + | Blood - Blood | + + + + + | Narrative | Performed At | + + + | GFR is estimated using the MDRD equation recommended by the | [facility] | | National Kidney Disease Education Program. Estimated GFR | LABORATORY | | Interpretive Information: <60 mL/min/1.73 sq | SERVICES, CORE | | m Chronic Kidney Disease <15 mL/min/1.73 | | | sq m Kidney Failure Estimated GFR greater | | | that 60 mL/min/1.73 sq m is of limited clinical value. The MDRD | | | equation is not valid in the following situations: - Patients under | | | 18 years of age - Severe malnutrition or obesity - Vegetarian diet | | | - Rapidly changing kidney function - Amputees, paraplegics, or other | | | muscle-wasting diseses | | + + + + + + + + | Performing | Address | City/State/Zipcode | Phone Number | | Organization | | | | + + + + + | [facility] | [address] | [place] [address] | | | SERVICES, CORE | [address] | | | + + + + + CONFIRMATORY ABO/RH (06/12/2018 10:23 PM) + + + + + | Component | Value | Ref Range | Performed At | + + + + + | ABO Group | A | | [facility] | | | | | SERVICES, | | | | | TRANSFUSION | | | | | MEDICINE | + + + + + | Rh Type | Positive | | [facility] | | | | | SERVICES, | | | | | TRANSFUSION | | | | | MEDICINE | + + + + + + + | Specimen | + + | Blood - Blood | + + + + + + + | Performing | Address | City/State/Zipcode | Phone Number | | Organization | | | | + + + + + | [facility] | [address] | [place] [address] | | | SERVICES, | [address] | | | | TRANSFUSION MEDICINE | | | | + + + + + ANTIBODY SCREEN (06/12/2018 10:23 PM) + + + + + | Component | Value | Ref Range | Performed At | + + + + + | Antibody Screen | Negative | | [facility] | | | | | SERVICES, | | | | | TRANSFUSION | | | | | MEDICINE | + + + + + + + | Specimen | + + | Blood - Blood | + + + + + + + | Performing | Address | City/State/Zipcode | Phone Number | | Organization | | | | + + + + + | [facility] | [address] | [place] [address] | | | SERVICES, | [address] | | | | TRANSFUSION MEDICINE | | | | + + + + + CBC (HEMOGRAM) ONLY (06/12/2018 10:23 PM) + + + + + | Component | Value | Ref Range | Performed At | + + + + + | WHITE CELL COUNT | 11.67 (H) | 3.50 - 10.80 K/cu mm | [facility] | | | | | SERVICES, CORE | + + + + + | RED CELL COUNT | 3.64 (L) | 4.50 - 6.00 M/cu mm | [facility] | | | | | SERVICES, CORE | + + + + + | HEMOGLOBIN | 11.4 (L) | 13.5 - 17.5 g/dL | [facility] | | | | | SERVICES, CORE | + + + + + | HEMATOCRIT | 34.2 (L) | 41.0 - 53.0 % | [facility] | | | | | SERVICES, CORE | + + + + + | MCV | 94.0 | 80.0 - 100.0 fL | [facility] | | | | | SERVICES, CORE | + + + + + | MCHC | 33.3 | 32.0 - 36.0 g/dL | [facility] | | | | | SERVICES, CORE | + + + + + | RDW SD | 63.3 (H) | 35.1 - 46.3 fL | [facility] | | | | | SERVICES, CORE | + + + + + | PLATELET COUNT | 216 | 150 - 400 K/cu mm | [facility] | | | | | SERVICES, CORE | + + + + + | MPV | 9.3 (L) | 9.7 - 12.3 fL | [facility] | | | | | SERVICES, CORE | + + + + + | NRBC% | 0.0 | 0.0 - 0.3 % | [facility] | | | | | SERVICES, CORE | + + + + + | NRBC# | 0.00 | 0.00 - 0.02 K/cu mm | [facility] | | | | | SERVICES, CORE | + + + + + + + | Specimen | + + | Blood - Blood | + + + + + | [...] | + + + + + | [facility] | [address] | [place] [address] | | | KAREEM [facility] | [address] | | | + + + + + ABO & RH TYPE (06/12/2018 10:23 PM) + + + + + | Component | Value | Ref Range | Performed At | + + + + + | ABO Group | A | | [facility] | | | | | SERVICES, | | | | | TRANSFUSION | | | | | MEDICINE | + + + + + | Rh Type | Positive | | [facility] | | | | | SERVICES, | | | | | TRANSFUSION | | | | | MEDICINE | + + + + + + + | Specimen | + + | Blood - Blood | + + + + + + + | Performing | Address | City/State/Zipcode | Phone Number | | Organization | | | | + + + + + | [facility] | [address] | [place] [id number] | | | SERVICES, | [address] | | | | TRANSFUSION MEDICINE | | | | + + + + + INR (06/12/2018 10:23 PM) + + + + + | Component | Value | Ref Range | Performed At | + + + + + | INR | 1.42 (H) | 0.90 - 1.20 INR | [facility] | | | | | STEF, CORE | + + + + + + + | Specimen | + + | Blood - Blood | + + + + + | Narrative | Performed At | + + + | INR Therapeutic ranges for full anticoagulation: INR for | [facility] | | Venous Thromboembolism (2.0 - 3.0) INR INR | LABORATORY | | for most patients with mech. valves (2.5 - 3.5) INR | [facility] | + + + + + + + + | Performing | Address | City/State/Zipcode | Phone Number | | Organization | | | | + + + + + | [facility] | [address] | [place] [address] | | | SERVICES, K[place] | [address] | | | + + + + + PROCEDURE NOTE (06/12/2018 10:09 PM)CAPILLARY BLOOD GLUCOSE (NO CHG), POC (06/12/2018 9:41 PM) + +---------+ + + | Component | Value | Ref Range | Performed At | + +---------+ + + | BLOOD GLUCOSE, POC | 120 (H) | 70 - 99 mg/dL | [facility] | | | | | [place] [facility] | | | | | CARE TESTS | + +---------+ + + + + + + + | Performing | Address | City/State/Zipcode | Phone Number | | Organization | | | | + + + + + | [facility] | [address] | [place], [place] | | | OP[facility]IA [facility]ADA OF [facility] | [address] | [address] | | | TESTS | | | | + + + + + COMPLETE METABOLIC SET (NA,K,CL,CO2,BUN,CREAT,GLUC,CA,AST,ALT,BILI TOTAL,ALK PHOS,ALB,PROT TOTAL) (06/12/2018 4:27 PM) + + + + + | Component | Value | Ref Range | Performed At | + + + + + | GLUCOSE, PLASMA | 127 (H) | 70 - 99 mg/dL | [facility] | | (LAB) | | | SERVICES, CORE | + + + + + | BUN, PLASMA (LAB) | 30 (H) | 6 - 20 mg/dL | [facility] | | | | | SERVICES, CORE | + + + + + | CREATININE PLASMA | 1.63 (H) | 0.70 - 1.30 mg/dL | [facility] | | (LAB) | | | SERVICES, CORE | + + + + + | EGFR - | 50 (L) | >60 mL/min | [facility] | | DUTCH | | | SERVICES, CORE | + + + + + | EGFR NON | 41 (L) | >60 mL/min | [facility] | | -DUTCH | | | SERVICES, CORE | + + + + + | SODIUM, PLASMA (LAB) | 138 | 136 - 145 mmol/L | [facility] | | | | | SERVICES, CORE | + + + + + | POTASSIUM, PLASMA | 3.6 | 3.4 - 5.0 mmol/L | [facility] | | (LAB) | | | SERVICES, CORE | + + + + + | CHLORIDE, PLASMA | 100 | 97 - 108 mmol/L | [facility] | | (LAB) | | | SERVICES, CORE | + + + + + | TOTAL CO2, PLASMA | 34 (H) | 21 - 32 mmol/L | [facility] | | (LAB) | | | SERVICES, CORE | + + + + + | CALCIUM, PLASMA | 8.6 | 8.6 - 10.2 mg/dL | [facility] | | (LAB) | | | SERVICES, CORE | + + + + + | CALCIUM(ALB | 9.8 | 8.6 - 10.2 mg/dL | [facility] | | CORRECTED) | | | SERVICES, CORE | + + + + + | BILIRUBIN TOTAL | 1.0 | 0.3 - 1.2 mg/dL | [facility] | | | | | SERVICES, CORE | + + + + + | TOTAL PROTEIN, | 7.0 | 6.4 - 8.2 g/dL | [facility] | | PLASMA (LAB) | | | SERVICES, CORE | + + + + + | ALBUMIN, PLASMA | 2.5 (L) | 3.5 - 4.7 g/dL | [facility] | | (LAB) | | | SERVICES, CORE | + + + + + | ALK PHOS | 46 (L) | 56 - 119 U/L | [facility] | | | | | SERVICES, CORE | + + + + + | AST(SGOT) | 46 (H) | <=41 U/L | [facility] | | | | | SERVICES, CORE | + + + + + | ALT (SGPT) | 57 | <=60 U/L | [facility] | | | | | SERVICES, CORE | + + + + + | ANION GAP | 4 | 4 - 11 mmol/L | [facility] | | | | | SERVICES, CORE | + + + + + | ANION GAP(ALB | 7 | 4 - 11 mmol/L | [facility] | | CORRECTED) | | | SERVICES, CORE | + + + + + | POTASSIUM CMNT | No Hemo | | [facility] | | | | | SERVICES, CORE | + + + + + | BILI T CMNT | No Hemo | | [facility] | | | | | SERVICES, CORE | + + + + + | AST CMNT | No Hemo | | [facility] | | | | | SERVICES, CORE | + + + + + + + | Specimen | + + | Blood - Blood | + + + + + | Narrative | Performed At | + + + | GFR is estimated using the MDRD equation recommended by the | [facility] | | National Kidney Disease Education Program. Estimated GFR | LABORATORY | | Interpretive Information: <60 mL/min/1.73 sq | SERVICES, CORE | | m Chronic Kidney Disease <15 mL/min/1.73 | | | sq m Kidney Failure Estimated GFR greater | | | that 60 mL/min/1.73 sq m is of limited clinical value. The MDRD | | | equation is not valid in the following situations: - Patients under | | | 18 years of age - Severe malnutrition or obesity - Vegetarian diet | | | - Rapidly changing kidney function - Amputees, paraplegics, or other | | | muscle-wasting diseses | | + + + + + + + + | Performing | Address | City/State/Zipcode | Phone Number | | Organization | | | | + + + + + | [facility] | [address] | [place] [address] | | | SERVICES, K[place] | [address] | | | + + + + + PHOSPHORUS, PLASMA (06/12/2018 4:27 PM) + +-------+ + + | Component | Value | Ref Range | Performed At | + +-------+ + + | PHOSPHORUS, PLASMA | 3.7 | 2.4 - 4.7 mg/dL | [facility] | | (LAB) | | | SERVICES, CORE | + +-------+ + + + + | Specimen | + + | Blood - Blood | + + + + + + + | Performing | Address | City/State/Zipcode | Phone Number | | Organization | | | | + + + + + | [facility] | [address] | [place] [address] | | | SERVICES, CORE | [address] | | | + + + + + CAPILLARY BLOOD GLUCOSE (NO CHG), POC (06/12/2018 3:40 PM) + +---------+ + + | Component | Value | Ref Range | Performed At | + +---------+ + + | BLOOD GLUCOSE, POC | 130 (H) | 70 - 99 mg/dL | [facility] | | | | | [facility] OF | | | | | CARE TESTS | + +---------+ + + + + + + + | Performing | Address | City/State/Zipcode | Phone Number | | Organization | | | | + + + + + | [facility] | [address] | [place], [place] | | | KIERRA COMSTOCK OF [facility] | [address] | [phone] | | | TESTS | | | | + + + + + PROCEDURE NOTE (06/12/2018 2:57 PM) + + + | Narrative | Performed At | + + + | Sandoval Hyde MD 06/17/2018 2:15 PM Date of Service: | | | 08/01/2015 Attending Surgeon: Sandoval Hyde MD | | | Commercial Drafter(s): mesfin thompson MD Preoperative Diagnosis: 1. 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 Postoperative Diagnosis: | | | same Procedures Performed: 1. Right knee arthrotomy with | | | drainage for infection and polyethylene exchange 2. Application | | | TINO disposible negative pressure wound therapy dressing right knee | | | [id number] Anesthesia: General endotracheal anesthesia. | | | Implants: excahgned alisha triathalon poly size 15, 13mm EBL: 50 | | | Complications: None Specimens: 6 cultures, 1 path | | | Indication For Procedure: Solo Alves was transferred to [facility] for | | | sepsis after previosuly having been treated with a right total | | | knee. He ws medically unstable and transferred to the medical | | | service. An apsirate was positive. I would recommend | | | returning to the operating room for poly exchange and | | | debridement. We discussed the procedure, alternatives, risks at | | | length with the patient and family and answered all their questions | | | to their satisfaction. A consent form was signed and leg marked. | | | Procedure In Detail: The patient was identified in the | | | preoperative holding area by name, date, medical record | | | number, and was transported to the operating room and transferred to | | | the operating table where general endotracheal anesthesia was | | | induced without difficulty. We then prepped and draped his right | | | lower extremity in the usual sterile fashion. At this time, a | | | time-out procedure was undertaken during which he was identified and | | | the consent form was reviewed as well as the site marking. It was | | | verified that he had received his preoperative antibiotics as well | | | as the placement of a pneumatic compression device in his right | | | lower extremity, which was on and working. Everyone in the room was | | | in agreement that the correct side, site, and procedure were to take | | | place and the procedure began. After the placement of the | | | tourniquet, his incisions were then marked out and we began with the | | | typical medial parapatellar arthrotomy incision. We followed along | | | the medial cortex of the patella. A skin incision was made with a 15 | | | blade scalpel and dissection was carried down to the level of the | | | knee capsule with electrocautery. An arthrotomy was made in the | | | medial parapatellar knee. Grossly purlent tissue was | | | encounteered. A standrad set of ortho biopsies were | | | obtained. The arhtrotomy was extended such that a finger could be | | | place about the knee to break up loculations in the suprapatellar | | | pouch, medial and lateral gutters and notch of the knee. The | | | femoral and tibial componenets of the toal [...] wash was performed. The knee was then | | | flexed and a new alisha triathalon CR poly, size 5 with 13mm height | | | was implnated into the tibial baseplate. IT was stable. The | | | knee was much cleanere appearing at this point. The knee was | | | lavaged with 10 l of sterile saline under gravity drainage. A | | | drain was placed in the knee. The knee casule was closed with 0 | | | vicryl suture, and skin closed with 2-0 Biosyn and 3-0 nylon. | | | Due to the risk of postop hematoma and drainage a TINO disopsible | | | negative pressure dressing was applied over the incision. This | | | measured 10x30 cm. Sticky drapes were placed around the incision | | | to protect the skin. Sticky drapes were applied over this. | | | Suction was applied and held appropriately. Suction will be set | | | postoperatively to 100 mm Hg. The vac should be removed in | | | approximately 7 days. Sterile Webril was then wrapped, as well as | | | a large Daija wrap. He was then awoken from anesthesia and | | | transported back to the postanesthesia care unit. Postoperative | | | Plan: The patient be full weightbearing on his right lower | | | extremity He will follow up in approximately 2-3 weeks with Licha | | | Jeremy for wound inspection in clinic. At that visit he should | | | have xrays ap/lateral of the right knee. He can have his sutures | | | removed. He will be on likely PICC line IV antibiotics. He | | | can start physical therapy for knee motion at the two week postop | | | visit. In accordance with medicare guidelines I was present | | | for the critical portion of the procedure. Sandoval Hyde MD | | | ADDENDUM: (06/17/2018): The date listed above is | | | incorrect. The correct date of surgery was 06/12/2018. The | | | remainder of the operative note is correct as it stands. | | | Sandoval Hyde MD, MPH Latin Teacher, Dept. of Orthopaedics | | | [address] | | | [address] [address] | | | [email or web address] | | + + + CAPILLARY BLOOD GLUCOSE (NO CHG), POC (06/12/2018 2:42 PM) + +---------+ + + | Component | Value | Ref Range | Performed At | + +---------+ + + | BLOOD GLUCOSE, POC | 134 (H) | 70 - 99 mg/dL | [facility] | | | | | [place] [facility] | | | | | CARE TESTS | + +---------+ + + + + + + + | Performing | Address | City/State/Zipcode | Phone Number | | Organization | | | | + + + + + | [facility] | [address] | [place], [place] | | | [facility] | [address] | [phone] | | | TESTS | | | | + + + + + CAPILLARY BLOOD GLUCOSE (NO CHG), POC (06/12/2018 2:08 PM) + +--------+ + + | Component | Value | Ref Range | Performed At | + +--------+ + + | BLOOD GLUCOSE, POC | 68 (L) | 70 - 99 mg/dL | [facility] | | | | | OP[facility]IA LOZADA OF | | | | | CARE TESTS | + +--------+ + + + + + + + | Performing | Address | City/State/Zipcode | Phone Number | | Organization | | | | + + + + + | [facility] | [address] | [place], [place] | | | [facility] | [address] | [address] | | | TESTS | | | | + + + + + CULTURE, TISSUE-PROSTHETIC JOINT INFECTION AER AND MARIELOS (06/12/2018 1:54 PM) + + + + + | Component | Value | Ref Range | Performed At | + + + + + | CULTURE RESULT | Staphylococcus | | [facility] | | | epidermidis (A) | | [facility] - | | | | | [place] | + + + + + + + | Specimen | + + | Tissue - Knee - | | right | + + + + + | [...] + | [facility] | [address] | [place] [address] | | | [facility] | | | | + + + + + CULTURE, TISSUE-PROSTHETIC JOINT INFECTION [facility] AND MARIELOS (06/12/2018 1:54 PM) + + + + + | Component | Value | Ref Range | Performed At | + + + + + | CULTURE RESULT | Staphylococcus | | [facility] | | | epidermidis (A) | | [facility] - | | | | | [place] | + + + + + + + | Specimen | + + | Tissue - Knee - | | right | + + + + + | [...] + | [facility] | [address] | [place] [address] | | | [place] | | | | + + + + + CULTURE, TISSUE-PROSTHETIC JOINT INFECTION [facility] AND MARIELOS (06/12/2018 1:54 PM) + + + + + | Component | Value | Ref Range | Performed At | + + + + + | CULTURE RESULT | Staphylococcus | | [facility] | | | epidermidis (A) | | [facility] - | | | | | [place] | + + + + + + + | Specimen | + + | Tissue - Knee - | | right | + + + + + | [...] + | [facility] | [address] | [place] [address] | | | [place] | | | | + + + + + CULTURE, TISSUE-PROSTHETIC JOINT INFECTION [facility]ER AND MARIELOS (06/12/2018 1:54 PM) + + + + + | Component | Value | Ref Range | Performed At | + + + + + | CULTURE RESULT | Staphylococcus | | [facility] | | | epidermidis (A) | | [facility] - | | | | | [place] | + + + + + + + | Specimen | + + | Tissue - Knee - | | right | + + + + + | Narrative | Performed At | + + + | Culture Report: Staphylococcus epidermidis Refer to culture | [facility] - | | collected on 06/12/18 at 1:54 PM for susceptibilities Unable to | [facility] - | | continue culture for Propionibacterium due to growth of other | [facility] | | organsims. Gram Stain: No squamous epithelial cells Many | | | polymorphonuclear cells No organisms seen | | + + + + + + + + | Performing | Address | City/State/Zipcode | Phone Number | | Organization | | | | + + + + + | [facility] | [address] | [place] [address] | | | [place] | | | | + + + + + CULTURE, TISSUE-PROSTHETIC JOINT INFECTION [facility] (06/12/2018 1:54 PM) + + + + + | Component | Value | Ref Range | Performed At | + + + + + | CULTURE RESULT | Staphylococcus | | [facility] | | epidermidis (A) | | [facility] - | | | | | [place] | + + + + + + + | Specimen | + + | Tissue - Knee - | | right | + + + + + | Narrative | Performed At | + + + | Culture Report: Staphylococcus epidermidis Refer to culture | [facility] | | collected on 06/12/18 at 1:54 PM for susceptibilities Unable to | [facility] | | continue culture for Propionibacterium due to growth of other | [facility] | | organsims. Gram Stain: No squamous epithelial cells Rare | | | polymorphonuclear cells No organisms seen | | + + + + + + + + | Performing | Address | City/State/Zipcode | Phone Number | | Organization | | | | + + + + + | [facility] | [address] | [place] [address] | | | [place] | | | | + + + + + SURGICAL PATHOLOGY (06/12/2018 1:53 PM) + + + + + | Component | Value | Ref Range | Performed At | + + + + + | Clinical History | RIGHT KNEE PROSTHETIC | | [facility] | | | JOINT INFECTION | | OF PATHOLOGY | + + + + + | Final Pathologic | A. Soft tissue, right | | [facility] | | Diagnosis | knee, biopsy: Fibrous | | OF PATHOLOGY | | | soft tissue and skeletal | | | | | muscle, negative for | | | | | significant acute | | | | | inflammationB. Knee, | | | | | infected right total | | | | | knee polyethylene: | | | | | Medical hardware (gross | | | | | only)Case seen by:Christina | | | | | MD Gemini | | | | | | | | | | Surgical Pathology | | | | | FellowIsaac Witt MD, | | | | | PhD | | | | | | | | | | PathologistMy | | | | | electronic signature | | | | | indicates that I have | | | | | personally reviewed all | | | | | diagnostic slides, the | | | | | gross and/or microscopic | | | | | portion of this report | | | | | and formulated the final | | | | | diagnosis. | | | + + + + + | Gross Description | Received are 2 specimens | | [facility] | | | fresh in containers | | OF PATHOLOGY | | | labeled with the | | | | | patient's name (initials | | | | | GR) and medical record | | | | | number [id number]. Knee, | | | | | right knee r/o | | | | | infection: Received | | | | | labeled "right knee rule | | | | | out infection | | | | | | | | | | 1" is a 2.1 x 0.9 x 0.5 | | | | | cm oh | | | | | | | | | | white soft tissue | | | | | fragment. Specimen is | | | | | submitted entirely in | | | | | A1.B. Knee, infected | | | | | right total knee | | | | | polyethylene: Received | | | | | labeled "infected right | | | | | total knee | | | | | polyethylene | | | | | | | | | | 2 is a plastic white | | | | | orthopedic medical | | | | | device (7.5 x 5.0 x 1.9 | | | | | cm) serial #[id number] | | | | | | | | | | G | | | | | | | | | | 513. There is an | | | | | associated 5.5 cm bent | | | | | metal pin. Submitted for | | | | | gross diagnosis | | | | | only.(EH) | | | + + + + + | ANCILLARY | Analyte specific | | [facility] | | INFORMATION | reagents are used in | | OF PATHOLOGY | | | many laboratory tests | | | | | necessary for standard | | | | | medical care. This test | | | | | was developed and its | | | | | performance | | | | | characteristics | | | | | determined by [facility] | | | | | laboratories. It has | | | | | not been cleared or | | | | | approved by the US Food | | | | | and Drug Administration | | | | | (FDA). FDA does not | | | | | require this test to go | | | | | through premarket FDA | | | | | review. This test is | | | | | used for clinical | | | | | purposes. It should not | | | | | be regarded as | | | | | investigational or for | | | | | research. This | | | | | laboratory is certified | | | | | under the Clinical | | | | | Laboratory Improvement | | | | | Amendments (CLIA) as | | | | | qualified to perform | | | | | high complexity clinical | | | | | laboratory testing. | | | + + + + + + + | Specimen | + + | Tissue - Knee | + + + + + + + | Performing | Address | City/State/Zipcode | Phone Number | | Organization | | | | + + + + + | [facility] | [address] | [place] [address] | | | PATHOLOGY | [address] | | | + + + + + CULTURE, BODY FLUID (06/12/2018 1:43 PM) + + + + + | Component | Value | Ref Range | Performed At | + + + + + | CULTURE RESULT | Staphylococcus | | [facility] | | | epidermidis (A) | | [facility] - | | | | | [place] | + + + + + + + | Specimen | + + | Fluid - Knee | + + + + + | [...] + | [facility] - | [address] | [place] [address] | | | [place] | | | | + + + + + CAPILLARY BLOOD GLUCOSE (NO CHG), POC (06/12/2018 10:53 AM) + +-------+ + + | Component | Value | Ref Range | Performed At | + +-------+ + + | BLOOD GLUCOSE, POC | 91 | 70 - 99 mg/dL | [facility] | | | | | [facility] | | | | | CARE TESTS | + +-------+ + + + + + + + | Performing | Address | City/State/Zipcode | Phone Number | | Organization | | | | + + + + + | [facility] | [address] | [place], [place] | | | [facility] OF CARE | [address] | [address] | | | TESTS | | | | + + + + + CAPILLARY BLOOD GLUCOSE (NO CHG), POC (06/12/2018 9:24 AM) + +-------+ + + | Component | Value | Ref Range | Performed At | + +-------+ + + | BLOOD GLUCOSE, POC | 85 | 70 - 99 mg/dL | [facility] | | | | | [facility] | | | | | CARE TESTS | + +-------+ + + + + + + + | Performing | Address | City/State/Zipcode | Phone Number | | Organization | | | | + + + + + | [facility] | [address] | [place], [place] | | | [facility] | [facility] | [address] | | | TESTS | | | | + + + + + CAPILLARY BLOOD GLUCOSE (NO CHG), POC (06/12/2018 9:02 AM) + +--------+ + + | Component | Value | Ref Range | Performed At | + +--------+ + + | BLOOD GLUCOSE, POC | 61 (L) | 70 - 99 mg/dL | [facility] | | | | | [facility] | | | | | CARE TESTS | + +--------+ + + + + + + + | Performing | Address | City/State/Zipcode | Phone Number | | Organization | | | | + + + + + | [facility] | [address] | [place], [place] | | | [facility] OF [facility] | [address] | [address] | | | TESTS | | | | + + + + + CARDIOLOGY (06/12/2018) + + + | Narrative | Performed At | + + + | | | + + + CULTURE, BLOOD BACTI & YEAST [facility] (06/11/2018 10:29 PM) + + + + + | Component | Value | Ref Range | Performed At | + + + + + | CULTURE RESULT | Final Report:No Bacteria | | [facility] | | | or Yeast isolated at 5 | | SERVICES, [facility] | | | days. | | | + + + + + + + | Specimen | + + | Blood | + + + + + + + | Performing | Address | City/State/Zipcode | Phone Number | | Organization | | | | + + + + + | [facility] | [address] | [place] [address] | | | SERVICES, CORE | [address] | | | + + + + + CULTURE, BLOOD BACTI & YEAST [facility] (06/11/2018 10:29 PM) + + + + + | Component | Value | Ref Range | Performed At | + + + + + | CULTURE RESULT | Final Report:No Bacteria | | [facility] | | | or Yeast isolated at 5 | | [facility] | | | days. | | | + + + + + + + | Specimen | + + | Blood - Hand - right | + + + + + + + | Performing | Address | City/State/Zipcode | Phone Number | | Organization | | | | + + + + + | [facility] | [address] | [place] [address] | | | SERVICES, CORE | [address] | | | + + + + + X-RAY KNEE 2 VIEWS RIGHT (06/11/2018 6:58 PM) + + + | Narrative | Performed At | + + + | EXAM: KNEE 2 VIEWS RIGHT HISTORY: knee pain. History of gout. | [facility] | | Total knee arthroplasty in 2013. 2 weeks of knee pain. Concern for [...] Riky Lewis MD 06/11/2018 8:30 PM | | | Preliminary: Riky Lewis MD Dictation initiated: Riky Beltre | | | MD Joshua 06/11/2018 8:14 PM | | + + + + + | Procedure Note | + + | Service Account, [facility] - 06/11/2018 8:31 PM PDT [...] (06/11/2018 6:12 PM) + + + + + | Component | Value | Ref Range | Performed At | + + + + + | WHITE CELL COUNT | 9.95 | 3.50 - 10.80 K/cu mm | [facility] | | | | | SERVICES, CORE | + + + + + | RED CELL COUNT | 3.44 (L) | 4.50 - 6.00 M/cu mm | [facility] | | | | | SERVICES, CORE | + + + + + | HEMOGLOBIN | 10.8 (L) | 13.5 - 17.5 g/dL | [facility] | | | | | SERVICES, CORE | + + + + + | HEMATOCRIT | 31.7 (L) | 41.0 - 53.0 % | [facility] | | | | | SERVICES, CORE | + + + + + | MCV | 92.2 | 80.0 - 100.0 fL | [facility] | | | | | SERVICES, CORE | + + + + + | MCHC | 34.1 | 32.0 - 36.0 g/dL | [facility] | | | | | SERVICES, CORE | + + + + + | RDW SD | 62.1 (H) | 35.1 - 46.3 fL | [facility] | | | | | SERVICES, CORE | + + + + + | PLATELET COUNT | 188 | 150 - 400 K/cu mm | [facility] | | | | | SERVICES, CORE | + + + + + | MPV | 9.3 (L) | 9.7 - 12.3 fL | [facility] | | | | | SERVICES, CORE | + + + + + | NRBC% | 0.2 | 0.0 - 0.3 % | [facility] | | | | | SERVICES, CORE | + + + + + | NRBC# | 0.02 | 0.00 - 0.02 K/cu mm | [facility] | | | | | SERVICES, CORE | + + + + + | NEUTROPHIL % | 65.9 | 50.0 - 70.0 % | [facility] | | | | | SERVICES, CORE | + + + + + | LYMPHOCYTE % | 21.3 | 18.0 - 42.0 % | [facility] | | | | | SERVICES, CORE | + + + + + | MONOCYTE % | 11.4 (H) | 3.5 - 9.0 % | [facility] | | | | | SERVICES, CORE | + + + + + | EOS % | 0.3 (L) | 1.0 - 3.0 % | [facility] | | | | | SERVICES, CORE | + + + + + | BASO % | 0.3 | 0.0 - 2.0 % | [facility] | | | | | SERVICES, CORE | + + + + + | IG% | 0.8Comment: Increased | 0.0 - 1.0 % | [facility] | | | immature granulocytes | | SERVICES, CORE | | | (IG) define a left | | | | | shift. Immature | | | | | granulocytes (IG) are an | | | | | automated count of | | | | | metamyelocytes, | | | | | myelocytes and | | | | | promyelocytes. Bands | | | | | are not included in the | | | | | IG count. Bands are | | | | | included in the | | | | | neutrophil count. | | | + + + + + | NEUTROPHIL # | 6.56 | 1.80 - 7.70 K/cu mm | [facility] | | | | | SERVICES, CORE | + + + + + | LYMPHOCYTE # | 2.12 | 1.00 - 4.80 K/cu mm | [facility] | | | | | SERVICES, CORE | + + + + + | MONOCYTE # | 1.13 (H) | 0.10 - 0.90 K/cu mm | [facility] | | | | | SERVICES, CORE | + + + + + | EOS # | 0.03 | 0.00 - 0.50 K/cu mm | [facility] | | | | | SERVICES, CORE | + + + + + | BASO # | 0.03 | 0.00 - 0.10 K/cu mm | [facility] | | | | | SERVICES, CORE | + + + + + | IG# | 0.08 | 0.00 - 0.10 K/cu mm | [facility] | | | | | SERVICES, CORE | + + + + + + + | Specimen | + + | Blood - Blood | + + + + + | [...] | + + + + + | [facility] | [address] | [place] [address] | | | SERVICES, CORE | [address] | | | + + + + + RAINBOW HOLD TUBE - RED TOP (06/11/2018 6:12 PM) + + | Specimen | + + | Blood | + + + + + + + | Performing | Address | City/State/Zipcode | Phone Number | | Organization | | | | + + + + + | [facility] | [address] | [place] [address] | | | SERVICES, CORE | [address] | | | + + + + + BLOOD BANK HOLD TUBE - DON T PROCESS (06/11/2018 6:12 PM) + + + + + | Component | Value | Ref Range | Performed At | + + + + + | SPECIMEN COLLECTED, | Sample received with | | [facility] | | HELD | adeq label/volume to | | SERVICES, | | | process | | TRANSFUSION | | | | | MEDICINE | + + + + + + + | Specimen | + + | Blood - Blood | + + + + + + + | Performing | Address | City/State/Zipcode | Phone Number | | Organization | | | | + + + + + | [facility] | [address] | [place] [address] | | | SERVICES, | [address] | | | | TRANSFUSION MEDICINE | | | | + + + + + RAINBOW HOLD TUBE - BLUE TOP (06/11/2018 6:12 PM) + + | Specimen | + + | Blood | + + + + + + + | Performing | Address | City/State/Zipcode | Phone Number | | Organization | | | | + + + + + | [facility] | [address] | [place] [address] | | | SERVICES, CORE | [address] | | | + + + + + COMPLETE METABOLIC SET (NA,K,CL,CO2,BUN,CREAT,GLUC,CA,AST,ALT,BILI TOTAL,ALK PHOS,ALB,PROT TOTAL) (06/11/2018 6:12 PM) + + + + + | Component | Value | Ref Range | Performed At | + + + + + | GLUCOSE, PLASMA | 199 (H) | 70 - 99 mg/dL | [facility] | | (LAB) | | | [facility] | + + + + + | BUN, PLASMA (LAB) | 37 (H) | 6 - 20 mg/dL | [facility] | | | | | SERVICES, CORE | + + + + + | CREATININE PLASMA | 2.01 (H) | 0.70 - 1.30 mg/dL | [facility] | | (LAB) | | | STEF, [facility] | + + + + + | EGFR - | 39 (L) | >60 mL/min | [facility] | | DUTCH | | | STEF, [facility] | + + + + + | EGFR NON | 32 (L) | >60 mL/min | [facility] | | -DUTCH | | | [facility], [facility] | + + + + + | SODIUM, PLASMA (LAB) | 135 (L) | 136 - 145 mmol/L | [facility] | | | | | SERVICES, [facility] | + + + + + | POTASSIUM, PLASMA | 3.8 | 3.4 - 5.0 mmol/L | [facility] | | (LAB) | | | SERVICES, CORE | + + + + + | CHLORIDE, PLASMA | 99 | 97 - 108 mmol/L | [facility] | | (LAB) | | | SERVICES, CORE | + + + + + | TOTAL CO2, PLASMA | 31 | 21 - 32 mmol/L | [facility] | | (LAB) | | | SERVICES, CORE | + + + + + | CALCIUM, PLASMA | 8.5 (L) | 8.6 - 10.2 mg/dL | [facility] | | (LAB) | | | SERVICES, CORE | + + + + + | CALCIUM(ALB | 9.5 | 8.6 - 10.2 mg/dL | [facility] | | CORRECTED) | | | SERVICES, CORE | + + + + + | BILIRUBIN TOTAL | 0.7 | 0.3 - 1.2 mg/dL | [facility] | | | | | SERVICES, CORE | + + + + + | TOTAL PROTEIN, | 7.3 | 6.4 - 8.2 g/dL | [facility] | | PLASMA (LAB) | | | SERVICES, CORE | + + + + + | ALBUMIN, PLASMA | 2.8 (L) | 3.5 - 4.7 g/dL | [facility] | | (LAB) | | | SERVICES, CORE | + + + + + | ALK PHOS | 51 (L) | 56 - 119 U/L | [facility] | | | | | SERVICES, CORE | + + + + + | AST(SGOT) | 49 (H) | <=41 U/L | [facility] | | | | | SERVICES, CORE | + + + + + | ALT (SGPT) | 65 (H) | <=60 U/L | [facility] | | | | | SERVICES, CORE | + + + + + | ANION GAP | 5 | 4 - 11 mmol/L | [facility] | | | | | SERVICES, CORE | + + + + + | ANION GAP(ALB | 8 | 4 - 11 mmol/L | [facility] | | CORRECTED) | | | SERVICES, CORE | + + + + + | POTASSIUM CMNT | No Hemo | | [facility] | | | | | SERVICES, CORE | + + + + + | BILI T CMNT | No Hemo | | [facility] | | | | | SERVICES, CORE | + + + + + | AST CMNT | No Hemo | | [facility] | | | | | SERVICES, CORE | + + + + + + + | Specimen | + + | Blood - Blood | + + + + + | Narrative | Performed At | + + + | GFR is estimated using the MDRD equation recommended by the | [facility] | | National Kidney Disease Education Program. Estimated GFR | LABORATORY | | Interpretive Information: <60 mL/min/1.73 sq | [facility], CORE | | m Chronic Kidney Disease <15 mL/min/1.73 | | | sq m Kidney Failure Estimated GFR greater | | | that 60 mL/min/1.73 sq m is of limited clinical value. The MDRD | | | equation is not valid in the following situations: - Patients under | | | 18 years of age - Severe malnutrition or obesity - Vegetarian diet | | | - Rapidly changing kidney function - Amputees, paraplegics, or other | | | muscle-wasting diseses | | + + + + + + + + | Performing | Address | City/State/Zipcode | Phone Number | | Organization | | | | + + + + + | [facility] | [address] | [place] [address] | | | [facility] | [address] | | | + + + + + APTT (ACT. PART. THROMBO TIME) (06/11/2018 6:12 PM) + + + + + | Component | Value | Ref Range | Performed At | + + + + + | APTT | 36.5 (H) | 26.0 - 36.0 seconds | [facility] | | | | | SERVICES, CORE | + + + + + + + | Specimen | + + | Blood - Blood | + + + + + | Narrative | Performed At | + + + | APTT values for monitoring heparin therapy may be affected by | [facility] | | specimens processed >1 hour after collection. APTT Therapeutic | LABORATORY | | Range: (75 - 120) sec | [facility] | | Heparin levels of 0.35 - 0.7 U/mL | | + + + + + + + + | Performing | Address | City/State/Zipcode | Phone Number | | Organization | | | | + + + + + | [facility] | [address] | [place] [address] | | | [facility] | [address] | | | + + + + + INR (06/11/2018 6:12 PM) + + + + + | Component | Value | Ref Range | Performed At | + + + + + | INR | 1.31 (H) | 0.90 - 1.20 INR | [facility] | | | | | SERVICES, CORE | + + + + + + + | Specimen | + + | Blood - Blood | + + + + + | Narrative | Performed At | + + + | INR Therapeutic ranges for full anticoagulation: INR for | [facility] | | Venous Thromboembolism (2.0 - 3.0) INR INR | LABORATORY | | for most patients with mech. valves (2.5 - 3.5) INR | SERVICES, CORE | + + + + + + + + | Performing | Address | City/State/Zipcode | Phone Number | | Organization | | | | + + + + + | [facility] | [address] | [place] [address] | | | SERVICES, CORE | [address] | | | + + + + + C-REACTIVE PROTEIN (06/11/2018 6:12 PM) + + + + + | Component | Value | Ref Range | Performed At | + + + + + | C-REACTIVE PROTEIN | 143.0 (H) | <10.0 mg/L | [facility] | | | | | SERVICES, CORE | + + + + + + + | Specimen | + + | Blood - Blood | + + + + + | Narrative | Performed At | + + + | New method, new reference range and new reporting units as of | [facility] | | 03/30/2014. | LABORATORY | | | SERVICES, CORE | + + + + + + + + | Performing | Address | City/State/Zipcode | Phone Number | | Organization | | | | + + + + + | [facility] | [address] | [place] [address] | | | SERVICES, K[facility] | [address] | | | + + + + + SEDIMENTATION RATE (06/11/2018 6:12 PM) + +--------+ + + | Component | Value | Ref Range | Performed At | + +--------+ + + | SEDIMENTATION RATE | 87 (H) | 0 - 20 mm/hr | [facility] | | | | | SERVICES, CORE | + +--------+ + + + + | Specimen | + + | Blood - Blood | + + + + + | [...] | + + + + + | [facility] | [address] | [place] [address] | | | STEF, KAREEM | [address] | | | + + + + + ED INFORMATION EXCHANGE (06/11/2018 6:04 PM) + + + | Narrative | Performed At | + + + | [id number] This patient has registered at the [place] | COLLECTIVE | | [facility] [place] [facility] For more | MEDICAL | | information visit: | TECH[employer]OLOGIES | | [id number] | | | 35ffec Security Events No [...] Complaint Aug | | | 2017 [facility] [place] Emergency | | | Emergency 10,800. REF Recent Inpatient Visit | | | Summary No recorded inpatient visits. E.D. Visit Count (12 mo.) | | | Facility Visits [facility] 1 Total 1 | | | Note: Visits indicate total known visits. PDMP Report Rx | | | Details (6 Mo.) Fill Date Drug Description Qty. Prescriber CS MED | | | 2018-04-28 ACETAMINOPHEN-COD #3 TABLET 60 GILMA CULVER MD 3 9 | | | 2018-03-02 [...] | | facilities for additional information. 2018 [employer] | | | [employer] - [place], [place] - | | | [email or web address] | | + + + + + | Procedure Note | + + | Service Account, Rtf Results Inbound - 06/11/2018 6:06 PM PDT Formatting of this | | note may be different from the original.[id number] patient has | | registered at the [facility] [place] [facility] For more | | information visit: | | [email or web address] Security | | EventsNo recent Security Events currently on fileED Care GuidelinesThere are currently | | no ED Care Guidelines in [place] for this patient. Please check your facility's medical | | records system.Recent Emergency Department Visit SummaryAdmit Date Facility [facility] State | | Type Major Type Diagnoses or Chief Complaint Jun 11, 2018 [facility] | | [facility] [place] Emergency Emergency 10,800. REF Recent Inpatient Visit | | SummaryNo recorded inpatient visits. E.D. Visit Count (12 mo.)Facility Visits [place] | | [facility] 1 Total 1 Note: Visits [...] | aforementioned facilities for additional information. 2018 [employer] | | [employer] [facility], [place] - [email or web address] | |Facility Visits | |[facility] [...] aforementioned facilities for additional information. | |2018 [employer] - [place], [place] - [email or web address] | + + + + + + + | Performing | Address | City/State/Zipcode | Phone Number | | Organization | | | | + + + + + | [facility] | [address], | [place], [place] | [phone] | | TECHNOLOGIES | [address] | [address] | | + + + + + [...] | | | HOURS, First dose on 06/17/18 | | PDT | | | | [...] | | Zandra 06/11/18 at 2306, Until Fri | | | 06/17/18 at 1718, CBG [...]
--- OUTSIDE RECORDS SUMMARY | ~2018-07-13 | XMS | Encounter Summary ---
Demographics + + + | Address | [address] | | | [place] [address] | + + + | Home Phone [...] Team Providers + +------+ + | Care Plastics Plater Name | Role | Phone | + +------+ + | Gilberto Estrada MD | PCP | | + +------+ + Encounter Details +--------+ + + + + | Date | Type | Department | Care Team | Description | +--------+ + + + + | 06/26/ | Telephone | Infectious | Abril Shields S, | | | 2018 | | Diseases at [facility] | [address] | | | | | Floor [address] | [facility] | | | | | [facility] | [place], [place] | | | | | Mailcode: L457 | [address] | | | | | [facility] | [phone] | | | | | [place], [place] | | | | | | [address] | | | | | | [phone] | | | +--------+ + + + [...] | | 2017 | | | [address] [facility] | | | | | | [facility] | | | | | | [place], [place] | | | | | | [address] | | | | | | [phone] | | | | | | | | +--------+ + + + + | 07/15/ | Office | Infectious Disease | Abril Shields, | | | 2017 | Visit | | [address] | | | | | | [address] | | | | | | [place], [place] | | | | | | [address] | | | | | | [phone] | | | | | | | | +--------+ + + + + as of this encounter Visit Diagnoses + + | Diagnosis | + + | Infection associated with internal right knee prosthesis, subsequent encounter - Primary | + +"
--- OUTSIDE RECORDS SUMMARY | ~2018-07-13 | XMS | Encounter Summary ---
Demographics + + + | Address | [address] | | | [place] [address] | + + + | Home Phone [...] Team Providers + +------+ + | Care Child Care Associate Name | Role | Phone | [...] | Floor [address] | [facility] | | | | | [facility] | [place], [place] | | | | | Mailcode: [address]457 | [address] | | | | | [facility] | [phone] | | | | | [place], [place] | | | | | | [address] | | | | | | [phone] | | | +--------+ + + + [...] | | 2017 | | | [address] [facility] | | | | | | [address] | | | | | | [place], [place] | | | | | | [address] | | | | | | [phone] | | | | | | | | +--------+ + + + + | 07/15/ | Office | Infectious Disease | Abril Shields, | | | 2017 | Visit | | [address] | | | | | | [address] | | | | | | [place], [place] | | | | | | [address] | | | | | | [phone] | | | | | | | | +--------+ + + + + as of this encounter Visit Diagnoses Not on filein this encounter"
--- OUTSIDE RECORDS SUMMARY | ~2018-07-13 | XMS | Encounter Summary ---
Demographics + + + | Address | [address] | | | [place] [address] | + + + | Home Phone | | + + + | Preferred Language | Unknown | + + + | Marital Status | | + + + | Faith Affiliation | 1077 | + + + | Race | Unknown | + + + | Ethnic Group | Unknown | + + + Author + + + | Author | [facility] [employer] [facility] | + + + | Organization | [facility] | + + + | Address | Unknown | + + + | Phone | Unavailable | + + + Support + + +---------+ + | Name | Relationship | Address | Phone | + + +---------+ + | Beth Mas | ECON | Unknown | | + + +---------+ + Care Team Providers + +------+ + | Care Bull Bucker Name | Role | Phone | + [...] disease), stage III | | | | [address] | [address] [place], [place] | (Primary Dx); | | | | [place] [id number] | [id number] | Bilateral leg edema; | | | | [phone] | | Type 2 diabetes | | [...] Magnesium, CBC, intact PTH, urinalysis, Urine total vlajpwc-oy-lkwkk inine ratio before he comes back in [...] 2 (two) times daily as neede d. [facility]-3 Fatty Acids (FISH OIL) 1200 MG CAPS [...] HCT 38.5 (L) 05/20/2018 LABPROT 0.163 05/20/2018 [id number] 01/12/2018 Assessment: Mr. Mas is a [...] Magnesium, CBC, intact PTH, urinalysis, Urine total agefpum-gl-frndi inine ratio before he comes back in [...] [address] | | | | | | [place] [address] | | | | | | [phone] | | | | | | | [...]
--- OUTSIDE RECORDS SUMMARY | ~2018-07-13 | XMS | Encounter Summary ---
Demographics + + + | Address | [address] | | | [place] [address] | + + + | Home Phone | | + + + | Preferred Language | Unknown | + + + | Marital Status | Unknown | + + + | Sabianism Affiliation | PRO | + + + [...] Team Providers + +------+ + | Care Washhouse Worker Name | Role | Phone | + +------+ + | Gilberto Estrada MD | PCP | | + +------+ + Reason for Visit + + + | Reason | Comments | + + + | RN Care Management | Resumed care at home post DC from [facility] | + + + | Infectious disease | | + + + Encounter Details +--------+ + + + + | Date | Type | Department | Care Team | Description | +--------+ + + + + | 07/09/ | Telephone | Infectious | Jaye Winchester, | RN Care Management | | 2018 | | [facility] at [facility] | RN [address] | (Resumed care at | | | | Floor [address] | [facility] | home post DC from | | | | [facility] | [place], [place] | [facility]); | | | | Mailcode: [id number] | [id number] | Infectious disease | | | | [facility] | | | | | | [place], [place] | | | | | | [address] | | | | | | [phone] | | | +--------+ + + + [...] Rd | | | | | | [facility] [place] | | | | | | [address] | | | | | | [phone] | | | | | | | | +--------+ + + + + | 07/15/ | Office | Infectious Disease | Abril Shields, | | | 2017 | Visit | | MD Roslyn Jerome | | | | | | [address] | | | | | | [place], [place] | | | | | | [address] | | | | | | [phone] | | | | | | | | +--------+ + + + + as of this encounter Visit Diagnoses Not on filein this encounter"
--- OUTSIDE RECORDS SUMMARY | ~2018-07-13 | XMS | Encounter Summary ---
Demographics + + + | Address | [address] | | | [place] [address] | + + + | Home Phone | | + + + | Preferred Language | Unknown | + + + | Marital Status | | + + + | Spiritism Affiliation | 1077 | + + + | Race | Unknown | + + + | Ethnic Group | Unknown | + + + Author + + + | Author | [facility] | + + + | Organization | [facility] | + + + | Address | Unknown | + + + | Phone | Unavailable | + + + Support + + +---------+ + | Name | Relationship | Address | Phone | + + +---------+ + | Beth Mas | ECON | Unknown | | + + +---------+ + Care Team Providers + +------+ + | Care Switch Engineer Name | Role | Phone | + +------+ + | Cesar Christopher MD | PCP | | + +------+ + Encounter Details +--------+ + + + + | Date | Type | Department | Care Team | Description | +--------+ + + + + | 04/27/ | Telephone | [facility] | [facility] | | | 2017 | | [facility] [place] | | | | | | [address] | | | | | | [place] | | | | | | [address] | | | | | | [phone] | | | +--------+ + + + [...] | | | | | [place] [address] | | | | | | [phone] | | | | | | | | +--------+ + + + + | 10/21/ | Documentati | Cardiology | | | | 2018 | on Only | | | | +--------+ + + + + as of this encounter Visit Diagnoses Not on filein this encounter"
--- OUTSIDE RECORDS SUMMARY | ~2018-07-13 | XMS | Clinical Summary ---
Demographics + + + | Address | [address] | | | [place] [address] | + + + | Home Phone | | + + + | Preferred Language | Unknown | + + + | Marital Status | | + + + | Restorationist Affiliation | 1076 | + + + | Race | Unknown | + + + | Ethnic Group | Unknown | + + + Author + + + | Author | [facility] | | | and [facility] | + + + | Organization | [facility] | | | and [place] | + + + | Address | Unknown | + + + | Phone | Unavailable | + + + Support + + +---------+ + | Name | Relationship | Address | Phone | + + +---------+ + | Beth [place] | ECON | Unknown | | + + +---------+ + | LARRY HAWK | ECON | Unknown | | + + +---------+ + Care Team Providers + +------+ + | Care Concession Stand Attendant Name | Role | Phone | + +------+ + | Erin Forrester MD | PP | | + +------+ + Allergies + + + + + + | Active Allergy | Reactions | Severity | Noted | Comments | | | | | Date | | + + + + + + | Sulfa Antibiotics | | | 07/21/20 | | | | | | 17 | | + + + + + + Current Medications + + +-------+---------+------+------+-------+ | Prescription | Sig. | Disp. | Refills | Star | End | Statu | | | | | | t | Date | s | | | | | | Date | | | + + +-------+---------+------+------+-------+ | | Take 1 tablet by | | | | | Activ | | acetaminophen-codein | mouth every 4 hours | | | | | e | | e (TYLENOL #2) | as needed for Pain. | | | | | | | 300-15 MG per tablet | | | | | | | + + +-------+---------+------+------+-------+ | allopurinol | Take 300 mg by mouth | | | | | Activ | | (ZYLOPRIM) 300 mg | Daily. | | | | | e | | tablet | | | | | | | + + +-------+---------+------+------+-------+ | cholecalciferol | Take 1,000 Units by | | | | | Activ | | (VITAMIN D-3) 1000 | mouth Daily. | | | | | e | | units TABS | | | | | | | + + +-------+---------+------+------+-------+ | folic acid | Take 400 mcg by | | | | | Activ | | (FOLVITE) 400 MCG | mouth Daily. | | | | | e | | tablet | | | | | | | + + +-------+---------+------+------+-------+ | glimepiride | Take 4 mg by mouth | | | | | Activ | | (AMARYL) 4 mg tablet | every morning | | | | | e | | | (before breakfast). | | | | | | + + +-------+---------+------+------+-------+ | isosorbide | Take 60 mg by mouth | | | | | Activ | | mononitrate (IMDUR) | Daily. | | | | | e | | 60 mg ER tablet | | | | | | | + + +-------+---------+------+------+-------+ | losartan (COZAAR) | Take 50 mg by mouth | | | | | Activ | | 50 mg tablet | Daily. | | | | | e | + + +-------+---------+------+------+-------+ | metFORMIN | Take 500 mg by mouth | | | | | Activ | | (GLUCOPHAGE) 500 mg | Daily. | | | | | e | | tablet | | | | | | | + + +-------+---------+------+------+-------+ | metOLazone | Take 2.5 mg by mouth | | | | | Activ | | (ZAROXOLYN) 2.5 mg | Daily. | | | | | e | | tablet | | | | | | | + + +-------+---------+------+------+-------+ | Multiple | Take 1 tablet by | | | | | Activ | | Vitamins-Minerals | mouth Daily. | | | | | e | | (ADULT MULTIVITAMIN | | | | | | | | WITH MINERALS/IRON) | | | | | | | | TABS | | | | | | | + + +-------+---------+------+------+-------+ | | Apply topically | | | | | Activ | | nystatin-triamcinolo | Twice daily as | | | | | e | | ne (MYCOLOG II) | needed. | | | | | | | ointment | | | | | | | + + +-------+---------+------+------+-------+ | fish oil 1,000 mg | Take 1,200 mg by | | | | | Activ | | capsule | mouth 2 times daily. | | | | | e | + + +-------+---------+------+------+-------+ | simvastatin | Take 40 mg by mouth | | | | | Activ | | (ZOCOR) 40 mg tablet | nightly. | | | | | e | + + +-------+---------+------+------+-------+ | warfarin | Take 2.5 mg by mouth | | | | | Activ | | (COUMADIN) 2.5 mg | Daily. | | | | | e | | tablet | | | | | | | + + +-------+---------+------+------+-------+ | carvedilol (COREG) | Take 6.25 mg by | | | | | Activ | | 6.25 mg tablet | mouth 2 times daily | | | | | e | | | (with breakfast & | | | | | | | | dinner). | | | | | | + + +-------+---------+------+------+-------+ | furosemide (LASIX) | Take 40 mg by mouth | | | | | Activ | | 40 mg tablet | 2 times daily. | | | | | e | + + +-------+---------+------+------+-------+ | magnesium oxide | Take 400 mg by mouth | | | | | Activ | | (MAG-OX) 400 mg | Daily. | | | | | e | | tablet | | | | | | | + + +-------+---------+------+------+-------+ | potassium chloride | Take 20 mEq by mouth | | | | | Activ | | (K-DUR) 20 mEq ER | 2 times daily. | | | | | e | | tablet | | | | | | | + + +-------+---------+------+------+-------+ Active Problems + + + | Problem | Noted Date | + + + | SEUN (obstructive sleep apnea) | 07/22/2017 | + + + | Ankylosing spondylitis (HCC) | 07/22/2017 | + + + | Dysphagia | 07/22/2017 [...] | 07/22/2017 | + + + | custodial current use of anticoagulant - COUMADIN | 07/22/2017 | + + + | Beta Blockers - Daily Use | 07/22/2017 | + + + | Diabetes mellitus, type II - ORAL Control | 07/22/2017 | + + + | Wchmj-sd-Romfvn lying flat | 07/22/2017 | + + + Social History + +-------+ [...] | Blood Pressure | 108/56 | 07/31/2017 1300 PDT | + + + + | Pulse | 64 | 07/31/2017 1300 PDT | + + + + | Temperature | 37.4 C (99.3 F) | 07/31/2017 1239 PDT | + + + + | Respiratory Rate | 13 | 07/31/20171299 PDT | + + + + | Oxygen Saturation | 95% | 07/31/2017 1300 PDT | + + + + | Inhaled Oxygen | - | - | | Concentration | | | + + + + | Weight | 97.1 kg (214 lb) | 07/31/20171124 PDT | + + + + | Height | 172.7 cm (5' 8") | 07/31/20171124 PDT | + + + + | Body Mass Index | 32.54 | 07/31/20171124 PDT | + + + + Plan [...] | | + + + + + Results Not on filefrom Last 3 Months Insurance + +--------+ +--------+ +---------+ | Payer | Benefi | Subscriber | Type | Phone | Address | | | t Plan | ID | | | | | | / | | | | | | | Group | | | | | + +--------+ +--------+ +---------+ | CIGNA | CIGNA | [id number] | Indemn | [phone] | | | | MDCR | | ity | [id number] | | | | SUPPLE | | | | | | | MENT | | | | | | | SOLUTI | | | | | | | ONS | | | | | + +--------+ +--------+ +---------+ | MEDICARE | MEDICA | [id number] | Medica | [phone] | | | | RE | | re | [phone] | | | | PART A | | | | | | | AND B | | | | | + +--------+ +--------+ +---------+ + +--------+ +--------+ + + | Guarantor Name | Accoun | Relation to | Date | Phone | Billing Address | | | t Type | Patient | of | | | | | | | | | | + +--------+ +--------+ + + | JÚNIOR MAS | Person | Self [birth year] Home: | [address] | | | al/Fam | | 1940 | [phone] | [place] [address] | | | afshan | | | [phone] | | + +--------+ +--------+ + +
--- OUTSIDE RECORDS SUMMARY | ~2018-07-13 | XMS | Encounter Summary ---
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 | Ann Napoles MD | | | | | | associated | [address] | | | | | | with | [address] | | | | | | internal | [address] | | | | | | right knee | [place], [place] | | | | | | prosthesis, | [address] | | | | | | subsequent | Phone: | | | | | | encounter | [phone] | | | | | | Procedures | Fax: | | | | | | OCCUPATIONAL | [phone] | | | | | | THERAPY | | | | | | | REFERRAL | | | + +--------+ + + + + Physical Therapy (Routine) + +--------+ + + + + | Status | Reason | Specialty | Diagnoses / | Referred By | Referred To | | | | | Procedures | Contact | Contact | + +--------+ + + + + | New Request | | Physical | Diagnoses | Timoteo, | | | | | 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 | Ann Napoles MD | | | | | | associated | [address] | | | | | | with | [address] | | | | | | internal | [address] | | | | | | right knee | [place], [place] | | | | | | prosthesis, | [id number] | | | | | | subsequent | Phone: | | | | | | encounter | [phone] | | | | | | Procedures | Fax: | | | | | | PHYSICAL | [phone] | | | | | | THERAPY | | | | | | | REFERRAL | | | + +--------+ + + + + Reason for Visit [...] + + | 06/11/ | Hospital | [facility] [address] | Sandra Valle MD | | | 2018 - | Encounter | [address] | [address] | | | | | [place] [place] | [address] | | | 06/17/ | | [place] [address] | [place], [place] | | | 2018 | | [phone] | [address] | | | | | | [phone] | | | | | | | | | | | | Edyta Demarco MD | | | | | | [address] | | | | | | [address] | | | | | | [facility], [place] | | | | | | [address] | | | | | | [phone] | | | | | | | | | | | | Dean Ugarte MD | | | | | | [address] | | | | | | [address] [facility], | | | | | | [place] [address] | | | | | | [phone] | | | | | | | | | | | | Stephan Mercado MD | | | | | | Flaquita Valverde | | | | | | MD Xavier Walton, | | | | | | MD Hugh [address] | | | | | | [address] | | | | | | [place], [place] | | | | | | [address] | | | | | | [phone] | | | | | | | | | | | | Ann Mahmood MD | | | | | | [address] | | | | | | [address] | | | | | | [place], [place] | | | | | | [address] | | | | | | [phone] | | | | | | | [...] (s/p PCI x3, CABG x2) complicated by health administrator erich systolic heart failure (EF 45%) due [...] excellent response. He will continue PT/OT at [facility] swing bed unit. Per orthopedic surgery, stitches [...] I-CAPS 280-10-2 mg Cap Generic drug: antiox.mv no.[id number]-vpi Take 1 capsule by mouth once daily. [...] (Non-Steroidal Anti-Inflammatory Drug) Renal Failure Avoid per Unit Director recommendations Sulfa (Sulfonamide Antibiotics) Rash Vital Signs [...] for after-discharge care Discharge Destination IP [facility] . Specialty: Acute Care Hospital Contact information [address] [place] [address] [place] Location: [facility] swing bed unit Appointments: Dr. Hyde on 07/23/18 at 10:40am. The discharge note was forwarded to the PCP for review. Discharging Physician: Ann Mahmood MD Suggested CPT: 10559 Discharge Management > 30 minute I spent more than 35 minutes prhv-db-tfsl with the patient of which 70% was [...] by | | | | | | no.[id number]-jgd-eol | mouth once daily. | | | [...] mouth. | | | | | | 7-mtm-rns-fish oil | | | | | | [...] negative pressure wound therapy dressing right knee [id number] Subjective: Doing ok overall. No CP/SOB. Tolerating [...] Plan to DC today to SNF in [place]. SNF can pull sutures at 2 weeks from operat kai date (June 27 is 2 weeks post op). Plan to return to Dr. Hyde' clinic 6 weeks an d also have ID clinic visit on that day. Appreciate [facility] and ID help in managing this [...] that time. Elias Soriano MD [facility] Department of Orthopaedics and Rehabilitation PGY-1 Pager [phone] Ann Mahmood MD - 06/16/2018 4:42 PM [...] (s/p PCI x3, CABG x2) complicated by health administrator erich systolic heart failure (EF 45%) due [...] mg daily Dispo: Anticipate discharge tomorrow to [facility] bed unit if renal function is s table Code status: Full code Diet: Regular diet Prophy: warfarin and heparin Ann Mahmood MD [employer] Manufacturing Technicianlead esthetician Clinical Hospitalist and Medicine Teaching Services [facility] Pager [phone] Suggested CPT: 41806 Subsequent Visit Detailed/High complexity 35 min I spent 37 minutes vgjl-es-jcjv with the patient of which 78% was [...] negative pressure wound therapy dressing right knee [id number] Subjective: Doing ok overall. No CP/SOB. Tolerating [...] to home as t ransporting back to [place] may present the patient and family undo hardship. 6. Dressings/Drains: Pulled yesterday? 7. Dispo/Discharge: Anticipate discharge to SNF in next 1-3 days if all criteria met. 8. Follow-up: Please call the clinic to make a follow up appointment in approximately 2 wee ks with ORTHO TRAUMA & FRACTURE, . AP and lateral of R knee at that time. Elias Soriano MD [facility] Department of Orthopaedics and Rehabilitation PGY-1 Pager [phone] Tanvir Ayala - 06/16/2018 8:20 AM PDTFormatting [...] three and a half hours away from [place]. At this time, we are unsur e of his ability to follow up with an OPAT clinic or if there is a provider near [place], where the patient resides. 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 This patient was [facility]ed [facility] Villalobos, who agrees with the above assessment and plan unless otherwise documented. Tanvir Ayala, [facility] P SUBJECTIVE Interval Events: No acute events overnight S: patient reports he is feeling well this morning. States he was able to meet with a sample case porter and had decided to go to a [...] MD Division of Hospital Medicine [facility] Pager [phone] I spent more than 35 minutes wmjf-rd-wxvp with the patient of which greater than 50% was sp ent counseling the patient or in coordination of care. Sisi Pablo [facility] - 06/15/2018 7:40 AM PDTFormatting of this note may be different from the original. 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 Orthopaedic Procedure(s) & Date(s): 06/13/2018 1. Right knee arthrotomy with drainage for infection and polyethylene exchange 2. Application TINO disposible negative pressure wound therapy dressing right knee [id number] Subjective: Doing ok overall, not too much pain in right knee. Looking forward to getting back winder to home, "My wants to get back [...] to home as t ransporting back to [place] may present the patient and family undo hardship. 6. Dressings/Drains: Continue drain 7. Dispo/Discharge: Anticipate discharge to SNF in next 1-3 days if all criteria met. 8. Follow-up: Please call the clinic to make a follow up appointment in approximately 2 wee nd with ORTHO TRAUMA & FRACTURE, . AP and lateral of R knee at that time. Sisi Pablo, [facility] Orthopaedic Trauma Surgery Pager [phone] Stephan Mercado MD - 06/14/2018 8:59 AM [...] MD Division of Hospital Medicine [facility] Pager [phone] I spent more than 35 minutes fofw-om-yfjf with the patient of which greater than [...] negative pressure wound therapy dressing right knee [id number] Subjective: Pain improving in R knee. Objective: [...] at that time. SEBAS PLEITEZ MD Pager [phone] Stephan Mercado MD - 06/13/2018 9:51 AM [...] MD Division of Hospital Medicine [facility] Pager [phone] I spent more than 35 minutes rnwp-jr-jvek with the patient of which greater than [...] negative pressure wound therapy dressing right knee [id number] Subjective: Painful in R knee today, but [...] at that time. SEBAS PLEITEZ MD Pager [phone] Stephan Mercado MD - 06/12/2018 1:24 PM [...] MD Division of Hospital Medicine [facility] Pager [phone] I spent more than 35 minutes inxn-lf-ahkd with the patient of which greater than [...] Rd | | | | | | [place], [place] | | | | | | [address] | | | | | | [phone] | | | | | | | | +--------+ + + + + | 07/15/ | Office | Infectious Disease | Abril Shields, | | | 2017 | Visit | | [address] | | | | | | [address] | | | | | | [place], [place] | | | | | | [address] | | | | | | [phone] | | | | | | | [...] organism | | | | | | ([facility]) | | + +--------+ + + + [...] organism | | | | | | ([facility]) | | + +--------+ + + + [...] organism | | | | | | ([facility]) | | + +--------+ + + + [...] organism | | | | | | ([facility]) | | + +--------+ + + + [...] + + + + + | [facility] | [address] | [place], [place] | | | [place] [facility] | [address] | [address] | | | TESTS | | | | + + + + + INR (06/17/2018 3:59 AM) + + + + + | Component | Value | Ref Range | Performed At | + + + + + | INR | 1.78 (H) | 0.90 - 1.20 INR | [facility] | | | | | SERVICES, [...] [facility] | [address] | [place] [address] | | | SERVICES, CORE | [address] [...] LABORATORY | | (LAB) | | | [facility], CORE | + + + + + | EGFR - | 46 (L) | >60 mL/min | [facility] | | [place] | | | STEF, CORE | + + + + + | EGFR NON | 38 (L) | >60 mL/min | [facility] | | -[place] | | | STEF, [facility] [place] | + + + + + | [...] POTASSIUM CMNT | No Hemo | | [facility] | | | | | SERVICES, [...] | + + + + + | [facility] | [address] | [place] [address] | | | SERVICES, KARE[place] | [address] | | | + + + + + CAPILLARY BLOOD GLUCOSE (NO CHG), POC (06/16/2018 11:20 PM) + +---------+ + + | Component | Value | Ref Range | Performed At | + +---------+ + + | BLOOD GLUCOSE, POC | 204 (H) | 70 - 99 mg/dL | [facility] | | | | | [facility] OF | | | | | CARE TESTS | + +---------+ + + + + + + + | Performing | Address | City/State/Zipcode | Phone Number | | Organization | | | | + + + + + | [facility] | [address] | [place] | | | [place]INT OF CARE | [address] | [address] | | | TESTS | | | [...] + | [facility] | [address] | [place], [place] | | | [place]ARE | [address] | [address] | | | TESTS | | | | + + + + + X-RAY PORTABLE CHEST 1 VIEW (06/16/2018 4:29 PM) + + + | Narrative | Performed At | + + + | EXAM: LA CHEST 1 VIEW HISTORY: PICC placement. Prosthetic [...] | MD Pérez 06/16/2018 4:43 PM Preliminary: Skye Frye | Dictation initiated: Claribel Byrnes MD 06/16/2018 4:27 | | | PM | | + + + + + | Procedure Note | + + | Service Account, Radiant Res In Interface - 06/16/2018 4:44 PM PDT EXAM: LA CHEST 1 | | VIEW HISTORY: PICC [...] | | | correct patient, procedure, equipment, biomedical equipment support specialist and site/side | | | marked as [...] vein. Catheter lot | | | number: [id number] with a length of 55 cm was [...] - [facility] | [address] | [place], [place] | | | [place] CARE | [address] | [address] | | | TESTS | | | | + + + + + INR (06/16/2018 4:23 AM) + + + + + | Component | Value | Ref Range | Performed At | + + + + + | INR | 1.51 (H) | 0.90 - 1.20 INR | [facility] | | | | | SERVICES, [...] [facility] | [address] | [place] [address] | | | SERVICES, CORE | [address] [...] >60 mL/min | [facility] | | [place] | | | STEF, [facility] [place] | + + + + + | EGFR NON | 32 (L) | >60 mL/min | [facility] | | -[place] | | | STEF, CORE | + + + + + | SODIUM, PLASMA (LAB) | 135 (L) | 136 - 145 mmol/L | [facility] | | | | | STEF, [...] POTASSIUM CMNT | No Hemo | | [facility] | | | | | SERVICES, CORE | + + + + + + + | Specimen | + + | Blood - Blood | + + + + + | Narrative | Performed At | + + + | GFR is estimated using the MDRD equation recommended by the | [facility] | | National Kidney Disease Education [...] | + + + + + | [facility] | [address] | [place] [address] | | | SERVICES, CORE | [address]ARY [...] [place] | | | | | [facility] OL[facility]ADA OF | | | | | CARE TESTS | + +---------+ + + + + + + + | Performing | Address | City/State/Zipcode | Phone Number | | Organization | | | | + + + + + | [facility] | [address] | [place], [place] | | | [place]ARE | [address] | [address] | | | TESTS | | | [...] [facility] | [address] | [place], [place] | | | [place], POINT OF CARE | [address] | [address] | | | TESTS | | | [...] [facility] | [address] | [place], [place] | | | [place] [facility] | [address] | [address] | | | TESTS | | | | + + + + + CBC AND AUTO DIFF (06/15/2018 7:04 AM) + + + + + | Component | Value | Ref Range | Performed At | + + + + + | WHITE CELL COUNT | 10.00 | 3.50 - 10.80 K/cu mm | [facility] | | | | | SERVICES, [...] (H) | 35.1 - 46.3 fL | [facility] | | | | | SERVICES, [...] (L) | 1.0 - 3.0 % | [facility] | | | | | SERVICES, CORE | + + + + + | BASO % | 0.2 | 0.0 - 2.0 % | [facility] | | | | | SERVICES, CORE | + + + + + | IG% | 0.5Comment: Increased | 0.0 - 1.0 % | [facility] | | | immature granulocytes | [...] | + + + + + | [facility] | [address] | [place] [address] | | | SERVICES, CORE | [address] [...] >60 mL/min | [facility] | | [place] | | | SERVICES, CORE | + + + + + | EGFR NON | 31 (L) | >60 mL/min | [facility] | | -[place] | | | SERVICES, CORE | + [...] | + + + + + | [facility] | [address] | [place] [address] | | | SERVICES, CORE | [address] | | | + + + + + EOSINOPHILS, URINE (SPOT) (06/15/2018 6:49 AM) + +-------+ + + | Component | Value | Ref Range | Performed At | + +-------+ + + | URINE EOSINOPHILS | <1 | <1 % | [facility] | | | | | SERVICES, CORE | + +-------+ + + + + | Specimen | + + | Urine - Urine | + + + + + + + | Performing | Address | City/State/Zipcode | Phone Number | | Organization | | | | + + + + + | [facility] | [address] | [place] [address] | | | KAREEM FINCH | [address]ARY [...] | + + + + + | [facility] | [address] | [place] [address] | | | SERVICES, CORE | [address] | | | + + + + + CREATININE, URINE (06/15/2018 6:49 AM) + +--------+ + + | Component | Value | Ref Range | Performed At | + +--------+ + + | CREATININE CONC UR | 269.00 | mg/dL | [facility] | | | | | SERVICES, CORE | + +--------+ + + | URINE INTERVAL | Random | | [facility] | | | | | SERVICES, CORE | + +--------+ + + | URINE VOLUME | Spot | | [facility] | | | | | SERVICES, [...] | + + + + + | [facility] | [address] | [place] [address] | | | KAREEM FINCH | [address]ARY [...] [facility] | [address] | [place] [address] | | | KAREEM FINCH | [address]ARY [...] [facility] | [address] | [place], [place] | | | [place]INT OF CARE | [address] | [address] | | | TESTS | | | [...] >60 mL/min | [facility] | | [place] | | | STEF CORE | + + + + + | EGFR NON | 29 (L) | >60 mL/min | [facility] | | -[place] | | | SERVICES, CORE | + [...] (L) | 8.6 - 10.2 mg/dL | [facility] | | (LAB) | | | SERVICES, CORE | + + + + + | ANION GAP | 4 | 4 - 11 mmol/L | [facility] | | | | | SERVICES, CORE | + + + + + | POTASSIUM CMNT | No Hemo | | [facility] | | | | | SERVICES, [...] is appropriate. | LABORATORY | | Page [phone] or [phone] with questions. Thank you. GFR is | [...] | + + + + + | [facility] | [address] | [place] [address] | | | SERVICES, CORE | [address] | | | + + + + + INR (06/14/2018 6:00 PM) + + + + + | Component | Value | Ref Range | Performed At | + + + + + | INR | 1.44 (H) | 0.90 - 1.20 INR | [facility] | | | | | SERVICES, [...] [facility] | [address] | [place] [address] | | | SERVICES, KAREEM | [address] | | | + + + + + VANCOMYCIN, TROUGH (06/14/2018 6:00 PM) + +-------+ + + | Component | Value | Ref Range | Performed At | + +-------+ + + | VANCOMYCIN, TROUGH | 12.9 | 10.0 - 20.0 ug/mL | [facility] | | | | | SERVICES, [...] is appropriate. | LABORATORY | | Page [phone] or call [phone] with questions. Thank you. | K[facility] FINCH | + + + + + + + + | Performing | Address | City/State/Zipcode | Phone Number | | Organization | | | | + + + + + | [facility] | [address] | [place] [address] | | | KAREEM FINCH | [address]ARY [...] + + + | [facility] | [address] | [place], [place] | | | [place]INT OF CARE | [address] | [address] | | | TESTS | | | [...] [facility] | [address] | [place], [place] | | | [place] [facility] | [address] | [address] | | | TESTS | | | | + + + + + CBC (HEMOGRAM) ONLY (06/14/2018 5:24 AM) + + + + + | Component | Value | Ref Range | Performed At | + + + + + | WHITE CELL COUNT | 12.05 (H) | 3.50 - 10.80 K/cu mm | [facility] | | | | | SERVICES, CORE | + + + + + | RED CELL COUNT | 3.23 (L) | 4.50 - 6.00 M/cu mm | [facility] | | | | | SERVICES, CORE | + + + + + | HEMOGLOBIN | 9.9 (L) | 13.5 - 17.5 g/dL | [facility] | | | | | SERVICES, CORE | + + + + + | HEMATOCRIT | 30.1 (L) | 41.0 - 53.0 % | [facility] | | | | | SERVICES, CORE | + + + + + | MCV | 93.2 | 80.0 - 100.0 fL | [facility] | | | | | SERVICES, CORE | + + + + + | MCHC | 32.9 | 32.0 - 36.0 g/dL | [facility] | | | | | SERVICES, [...] MCHC, PLT, IG% and IG# effective | [facility] | | 03/05/2018 | LABORATORY | | | SERVICES, CORE | + + + + + + + + | Performing | Address | City/State/Zipcode | Phone Number | | Organization | | | | + + + + + | [facility] | [address] | [place] [address] | | | SERVICES, CORE | [address] [...] (H) | 6 - 20 mg/dL | [facility] | | | | | SERVICES, CORE | + + + + + | CREATININE PLASMA | 2.08 (H) | 0.70 - 1.30 mg/dL | [facility] | | (LAB) | | | SERVICES, CORE | + + + + + | EGFR - | 37 (L) | >60 mL/min | [facility] | | [place] | | | STEF, CORE | + + + + + | EGFR NON | 31 (L) | >60 mL/min | [facility] | | -[place] | | | [facility] [place] [place] | + + + + + | [...] | + + + + + | LUDYI T CMNT | No Hemo | | [facility] | | | | | SERVICES, CORE | + + + + + | AST CMNT | No Hemo | | [facility] | | | | | SERVICES, CORE | + + + + + + + | Specimen | + + | Blood - Blood | + + + + + | Narrative | Performed At | + + + | GFR is estimated using the MDRD equation recommended by the | [facility] | | National Kidney Disease Education [...] | + + + + + | [facility] | [address] | [place] [address] | | | SERVICES, KAREEM | [address] | | | + + + + + CAPILLARY BLOOD GLUCOSE (NO CHG), POC (06/13/2018 9:36 PM) + +---------+ + + | Component | Value | Ref Range | Performed At | + +---------+ + + | BLOOD GLUCOSE, POC | 162 (H) | 70 - 99 mg/dL | [facility] | | | | | [facility] LO[facility] OF | | | | | CARE TESTS | + +---------+ + + + + + + + | Performing | Address | City/State/Zipcode | Phone Number | | Organization | | | | + + + + + | [facility] | [address] | [place], [place] | | | OPHELIA LOZADA OF CARE | [address] | [address] | | | TESTS | | | [...] [facility] | [address] | [place], [place] | | | ROSARIO LOZADA | [facility] | [address] | | | TESTS | | | [...] - [facility] | [address] | [place], [place] | | | [place]INT OF CARE | [address] | [address] | | | TESTS | | | [...] + | ECG IMPRESSION | Borderline prolonged LA | | [facility] | | [...] ECG IMPRESSION | Electronically signed | | [facility] | | | by: SHAI [...] DEPT OF | [address] | [place], [place] | | | CARDIOLOGY | [address] | [address] | | + + + + + [...] [facility] | [address] | [place], [place] | | | [place]INT OF CARE | [address] | [address] | | | TESTS | | | [...] 92.6 | 80.0 - 100.0 fL | [facility] | | | | | SERVICES, [...] 9.9 | 9.7 - 12.3 fL | [facility] | | | | | SERVICES, [...] + | [facility] | [address] | [place] [address] | | | KAREEM FINCH | [address]ARY [...] >60 mL/min | [facility] | | [place] | | | SERVICES, CORE | + + + + + | EGFR NON | 40 (L) | >60 mL/min | [facility] | | -[place] | | | SERVICES, CORE | + [...] LABORATORY | | CORRECTED) | | | [facility], CORE | + + + + + [...] | + + + + + | [facility] | [address] | [place] [address] | | | SERVICES, CORE | [address] | | | + + + + + MAGNESIUM, PLASMA (06/12/2018 10:24 PM) + +-------+ + + | Component | Value | Ref Range | Performed At | + +-------+ + + | MAGNESIUM,PLASMA | 1.8 | 1.6 - 2.6 mg/dL | [facility] | | | | | KAREEM FINCH | + +-------+ + + + + [...] [facility] | [address] | [place] [address] | | | SERVICES, KAREEM | [address]ARY [...] >60 mL/min | [facility] | | [place] | | | SERVICES, CORE | + + + + + | EGFR NON | 43 (L) | >60 mL/min | [facility] | | -[place] | | | SERVICES, CORE | + [...] LABORATORY | | CORRECTED) | | | [facility] [place] [place] | + + + + + | [...] | + + + + + | LUDYI Roxie CMNT | No Hemo | | [facility] [...] | + + + + + | [facility] | [address] | [place] [address] | | | SERVICES, CORE | [address] | | | + + + + + CONFIRMATORY ABO/RH (06/12/2018 10:23 PM) + + + + + | Component | Value | Ref Range | Performed At | + + + + + | ABO Group | A | | [facility] | | | | | SERVICES, [...] [facility] | [address] | [place] [address] | | | SERVICES, | [address] | | | | TRANSFUSION MEDICINE | | | | + + + + + ANTIBODY SCREEN (06/12/2018 10:23 PM) + + + + + | Component | Value | Ref Range | Performed At | + + + + + | Antibody Screen | Negative | | [facility] | | | [...] [facility] | [address] | [place] [address] | | | SERVICES, | [address] | | | | TRANSFUSION MEDICINE | | | | + + + + + CBC (HEMOGRAM) ONLY (06/12/2018 10:23 PM) + + + + + | Component | Value | Ref Range | Performed At | + + + + + | WHITE CELL COUNT | 11.67 (H) | 3.50 - 10.80 K/cu mm | [facility] | | | | | SERVICES, [...] [facility] | [address] | [place] [address] | | | SERVICES, CORE | MARY [...] | + + + + + | [facility] | [address] | [place] [address] | | | SERVICES, | [address] | | | | TRANSFUSION MEDICINE | | | | + + + + + INR (06/12/2018 10:23 PM) + + + + + | Component | Value | Ref Range | Performed At | + + + + + | INR | 1.42 (H) | 0.90 - 1.20 INR | [facility] | | | | | SERVICES, [...] | + + + + + | [facility] | [address] | [place] [address] | | | SERVICES, CORE | MARY [...] [place] | [address] | [place], [place] | | | [place], POINT OF CARE | [address] | [address] | | | TESTS | | | [...] [facility] | | | | | STEF, CORE | + + + + + | CREATININE PLASMA | 1.63 (H) | 0.70 - 1.30 mg/dL | [facility] | | (LAB) | | | STEF, CORE | + + + + + | EGFR - | 50 (L) | >60 mL/min | [facility] | | [place] | | | STEF, CORE | + + + + + | EGFR NON | 41 (L) | >60 mL/min | [facility] | | -[place] | | | STEF, CORE | + [...] 1.0 | 0.3 - 1.2 mg/dL | [facility] | | | | | SERVICES, CORE | + + + + + | TOTAL PROTEIN, | 7.0 | 6.4 - 8.2 g/dL | [facility] | | PLASMA (LAB) | | | [facility], CORE | + + + + + | ALBUMIN, PLASMA | 2.5 (L) | 3.5 - 4.7 g/dL | [facility] | | (LAB) | | | [...] | + + + + + | [facility] | [address] | [place] [address] | | | STEF, KAREEM | [address] | | | + + + + + PHOSPHORUS, PLASMA (06/12/2018 4:27 PM) + +-------+ + + | Component | Value | Ref Range | Performed At | + +-------+ + + | PHOSPHORUS, PLASMA | 3.7 | 2.4 - 4.7 mg/dL | [facility] | | (LAB) | | | KAREEM FINCH | + +-------+ + + + + | Specimen | + + | Blood - Blood | + + + + + + + | Performing | Address | City/State/Zipcode | Phone Number | | Organization | | | | + + + + + | [facility] | [address] | [place] [address] | | | SERVICES, CORE | MARY [...] [place] | [address] | [place], [place] | | | [place] POINT OF CARE | [address] | [address] | | | TESTS | | | | + + + + + PROCEDURE NOTE (06/12/2018 2:57 PM) + + + | Narrative | Performed At | + + + | Sandoval Hyde MD 06/17/2018 2:15 PM Date of Service: | | | 08/01/2015 Attending Surgeon: Sandoval Hyde MD | | | Housing Assistant Property Manager(s): mesfin [email or web address] MD Preoperative Diagnosis: 1. 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 Postoperative Diagnosis: | | | same Procedures Performed: 1. Right knee arthrotomy with | | | drainage for infection and polyethylene exchange 2. Application | | | TINO disposible negative pressure wound therapy dressing right knee | | | [id number] Anesthesia: General endotracheal anesthesia. | | | Implants: excahgned alisha triathalon poly size 15, 13mm EBL: 50 | | | Complications: None Specimens: 6 cultures, 1 path | | | Indication For Procedure: Solo Alves was transferred to [facility] for | | | sepsis after previosuly [...] | | | Sandoval Hyde MD, MPH [employer] [employer], Dept. of Orthopaedics | | | [address] | | | [facility] [place] [address] | | | [email or web address] | | + + + CAPILLARY BLOOD [...] [facility] | [address] | [place], [place] | | | [place] POINT OF CARE | [facility] | [address] | | | TESTS | | | [...] + + + + | [facility] | [address] | [place] | | | [place] POINT OF CARE | [address] | [address] | | | TESTS | | | [...] Propionibacterium due to growth of other | [facility] | | organsims. Gram Stain: No squamous epithelial cells Moderate | | | polymorphonuclear cells No organisms seen | | + + + + + + + + | Performing | Address | City/State/Zipcode | Phone Number | | Organization | | | | + + + + + | [facility] | [address] | [place] [address] | | | [place] | | | | + + + [...] Propionibacterium due to growth of other | [place] | | organsims. Gram Stain: No squamous epithelial cells No | | | polymorphonuclear cells No organisms seen | | + + + + + + + + | Performing | Address | City/State/Zipcode | Phone Number | | Organization | | | | + + + + + | [facility] | [address] | [place] [address] | | | [facility] | | | | + + + + + CULTURE, TISSUE-PROSTHETIC JOINT INFECTION [facility] (06/12/2018 1:54 PM) + + + + + | Component | Value | Ref Range | Performed At | + + + + + | CULTURE RESULT | Staphylococcus | | [facility] | | | epidermidis (A) | | [facility] - | | | | | [place] | + + + + + + [...] + | [facility] - | [address] | [place] [address] | | | [place] | | | [...] Propionibacterium due to growth of other | [place] | | organsims. Gram Stain: No squamous epithelial cells Many | | | polymorphonuclear cells No organisms seen | | + + + + + + + + | Performing | Address | City/State/Zipcode | Phone Number | | Organization | | | | + + + + + | [facility] | [address] | [place] [address] | | | [place] | | | [...] | + + + + + | [facility] - | [address] | [place] [address] | | | [place] | | | | + + + + + SURGICAL PATHOLOGY (06/12/2018 1:53 PM) + + + + + | Component | Value | Ref Range | Performed At | + + + + + | Clinical History | RIGHT KNEE PROSTHETIC | | [facility] | | | JOINT INFECTION | | OF PATHOLOGY | + + + + + | Final Pathologic | A. Soft tissue, right | | [facility] | | Diagnosis | knee, biopsy: [...] | Received are 2 specimens | | [facility] | | | fresh in containers | | OF PATHOLOGY | | | labeled with the | | | | | patient's name (initials | | | | | GR) and medical record | | | | | number [id number].A. Knee, | | | | | right [...] | ANCILLARY | Analyte specific | | [facility] | | INFORMATION | reagents are [...] | | | | | determined by [facility] | | | | | laboratories. It [...] | + + + + + | [facility] | [address] | [place] [address] | | | PATHOLOGY | [address] [...] | + + + + + | [facility] - | [address] | [place] [address] | | | [place] | | | [...] [facility] | [address] | [place], [place] | | | OPHELIA LOZADA OF CARE | [address] | [address] | | | TESTS | | | [...] [facility] | [address] | [place], [place] | | | [place] POINT OF CARE | [address] | [address] | | | TESTS | | | [...] [facility] | [address] | [place], [place] | | | OPHELIA LOZADA OF [place] | [address] | [address] | | | TESTS | | | | + + + + + CARDIOLOGY (06/12/2018) + + + | Narrative | Performed At | + + + | | | + + + CULTURE, BLOOD BACTI & YEAST [facility] (06/11/2018 10:29 PM) + + + + + | Component | Value | Ref Range | Performed At | + + + + + | CULTURE RESULT | Final Report:No Bacteria | | [facility] | | | or Yeast isolated at 5 | | SERVICES, CORE | | | days. | | | + + + + + + + | Specimen | + + | Blood | + + + + + + + | Performing | Address | City/State/Zipcode | Phone Number | | Organization | | | | + + + + + | [facility] | [address] | [place] [address] | | | KAREEM FINCH | [address] | | | + + + + + CULTURE, BLOOD BACTI & YEAST [facility] (06/11/2018 10:29 PM) + + + + + | Component | Value | Ref Range | Performed At | + + + + + | CULTURE RESULT | Final Report:No Bacteria | | [facility] | | | or Yeast isolated at 5 | | SERVICES CORE | | | days. | | | + + + + + + + | Specimen | + + | Blood - Hand - right | + + + + + + + | Performing | Address | City/State/Zipcode | Phone Number | | Organization | | | | + + + + + | [facility] | [address] | [place] [address] | | | SERVICES, CORE | MARY [...] | 3.50 - 10.80 K/cu mm | [facility] | | | | | SERVICES, [...] (H) | 35.1 - 46.3 fL | [facility] | | | | | SERVICES, CORE | + + + + + | PLATELET COUNT | 188 | 150 - 400 K/cu mm | [facility] | | | | | SERVICES, CORE | + + + + + | MPV | 9.3 (L) | 9.7 - 12.3 fL | [facility] | | | | | SERVICES, CORE | + + + + + | NRBC% | 0.2 | 0.0 - 0.3 % | [facility] | | | | | SERVICES, CORE | + + + + + | NRBC# | 0.02 | 0.00 - 0.02 K/cu mm | [facility] | | | | | SERVICES, [...] (L) | 1.0 - 3.0 % | [facility] | | | | | SERVICES, CORE | + + + + + | BASO % | 0.3 | 0.0 - 2.0 % | [facility] | | | | | SERVICES, CORE | + + + + + | IG% | 0.8Comment: Increased | 0.0 - 1.0 % | [facility] | | | immature granulocytes | [...] | + + + + + | [facility] | [address] | [place] [address] | | | SERVICES, CORE | MARY [...] | + + + + + | [facility] | [address] | [place] [address] | | | SERVICES, CORE | [address] | | | + + + + + BLOOD BANK HOLD TUBE - DON T PROCESS (06/11/2018 6:12 PM) + + + + + | Component | Value | Ref Range | Performed At | + + + + + | SPECIMEN COLLECTED, | Sample received with | | [facility] | | HELD | tyree label/volume to | | SERVICES, | | [...] [facility] | [address] | [place] [address] | | | SERVICES, | [address] [...] | + + + + + | [facility] | [address] | [place] [address] | | | SERVICES, KAREEM | [address] | | | + + + [...] >60 mL/min | [facility] | | [place] | | | SERVICES, CORE | + + + + + | EGFR NON | 32 (L) | >60 mL/min | [facility] | | -[place] | | | STEF, CORE | + [...] AST CMNT | No Hemo | | [facility] | | | | | SERVICES, [...] | + + + + + | [facility] | [address] | [place] [address] | | | SERVICES, CORE | [address] | | | + + + + + APTT (ACT. PART. THROMBO TIME) (06/11/2018 6:12 PM) + + + + + | Component | Value | Ref Range | Performed At | + + + + + | APTT | 36.5 (H) | 26.0 - 36.0 seconds | [facility] | | | | | KAREEM [...] | Range: (75 - 120) sec | SERVICES, CORE | | Heparin levels of 0.35 - 0.7 U/mL | | + + + + + + + + | Performing | Address | City/State/Zipcode | Phone Number | | Organization | | | | + + + + + | [facility] | [address] | [place] [address] | | | SERVICES, KAREEM | [address] | | | + + + + + INR (06/11/2018 6:12 PM) + + + + + | Component | Value | Ref Range | Performed At | + + + + + | INR | 1.31 (H) | 0.90 - 1.20 INR | [facility] | | | | | STEF, [...] + | [facility] | [address] | [place] [address] | | | SERVICES, KAREEM | [address] | | | + + + + + C-REACTIVE PROTEIN (06/11/2018 6:12 PM) + + + + + | Component | Value | Ref Range | Performed At | + + + + + | C-REACTIVE PROTEIN | 143.0 (H) | <10.0 mg/L | [facility] | | | | | SERVICES, CORE | + + + + + + + | Specimen | + + | Blood - Blood | + + + + + | Narrative | Performed At | + + + | New method, new reference range and new reporting units as of | [facility] | | 03/30/2014. | [facility]ORATORY | | | KAREEM [address] | + + + + + + + + | Performing | Address | City/State/Zipcode | Phone Number | | Organization | | | | + + + + + | [facility] | [address] | [place] [address] | | | SERVICES, KAREEM | [address] | | | + + + + + SEDIMENTATION RATE (06/11/2018 6:12 PM) + +--------+ + + | Component | Value | Ref Range | Performed At | + +--------+ + + | SEDIMENTATION RATE | 87 (H) | 0 - 20 mm/hr | [facility] | | | | [...] | + + + + + | [facility] | [address] | [place] [address] | | | SERVICES, CORE | [address] | | | + + + + + ED INFORMATION EXCHANGE (06/11/2018 6:04 PM) + + + | Narrative | Performed At | + + + | [id number] This patient has registered at the [place] | [facility] | | [facility] Emergency Department For more | MEDICAL | | information visit: | TECHNOLOGIES | | [email or web address] | | | 35ffec Security Events No [...] Type Major Type Diagnoses or Chief Complaint May | | | 2017 [facility] [place] Emergency | | | Emergency 10,800. REF Recent Inpatient Visit | | | Summary No recorded inpatient visits. E.D. Visit Count (12 mo.) | | | Facility Visits [facility] 1 Total 1 | | | [...] | | facilities for additional information. 2018 [facility] | | | [facility] - [place], [place] - | | | [email or web address] | | + + + + + | Procedure Note | + + | Service Account, Rtf Results Inbound - 06/11/2018 6:06 PM PDT Formatting of this | | note may be different from the original.[id number] patient has | | registered at the [facility] Emergency Department For more | | information visit: | | [email or web address] Security | | EventsNo recent Security Events currently on fileED Care GuidelinesThere are currently | | no ED Care Guidelines in DANIEL for this patient. Please check your facility's medical | | records system.Recent Emergency Department Visit SummaryAdmit Date Facility [facility] | | Type Major Type Diagnoses or Chief Complaint Jun 11, 2018 [facility] | | [facility] [place] Emergency Emergency 10,800. REF Recent Inpatient Visit | | SummaryNo recorded inpatient visits. E.D. Visit Count (12 mo.)Facility Visits [place] | | [facility] 1 Total 1 Note: Visits indicate total [...] | aforementioned facilities for additional information. 2018 [email or web address] | | [facility] - [place], [place] - [email or web address] | |Facility Visits | |[facility] 1 | |Total 1 | |Note: [...] aforementioned facilities for additional information. | |2018 [facility] - [place], [place] - [email or web address] | + + + + + + + | Performing | Address | City/State/Zipcode | Phone Number | | Organization | | | | + + + + + | [facility] | [address], | [place], [place] | [phone] | | TECHNOLOGIES | [address] | [address] | | + + + + + [...] angina pectoris | + + | Hypertension | + + | Unspecified essential hypertension | + + | Ischemic cardiomyopathy | + + | Other specified forms of chronic ischemic heart disease | + + | Systolic heart failure (HCC) | + + | Obstructive sleep apnea | + + | Obstructive sleep apnea (adult) (pediatric) | + + | Atrial fibrillation (HCC) | + + | Atrial fibrillation | + + | Hyperlipidemia | + + | Other and unspecified hyperlipidemia | + + | Heart block | + + | Conduction disorder, unspecified | + + | Pacemaker-dependent due to [place] cardiac rhythm insufficient to support life | + + | 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) | + + | Type II or unspecified type diabetes mellitus without mention of complication, not | | stated as uncontrolled | + + | Morbid obesity (HCC) | + + | Morbid obesity | + + | CKD (chronic kidney disease), stage III | + + | Chronic kidney disease, Stage III (moderate) | + + | 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 (HCC) | + + | Chronic anticoagulation | + + | Encounter for long-term (current) use of anticoagulants | + + | Encounter for long-term (current) use of antibiotics | + + Admitting Diagnoses + + | Diagnosis | [...] 300 mg, oral, DAILY, | | 8 13:16 | | | | | First dose on 06/13/18 at | | PDT | | | | | 1200, [...] g, intravenous, EVERY 8 | | 8 22:29 | | | | | HOURS, First dose on Fri06/15/18 | | PDT | | | | | at 2200, Until Discontinued | | | | | | + +---------+ +-----+---+---+ +---------+ +-----+-------+---+ | New Bag | | 2 g | 200 | | | | 8 06:05 | | mL/hr | | | | PDT | | | | +---------+ +-----+-------+---+ | New Bag | | 2 g | | | | | 8 15:57 | | | | | | PDT | | | | +---------+ +-----+-------+---+ [...] fentaNYL (SUBLIMAZE) injection | Given | | 50 mcg | | | | 50 mcg 50 mcg, intravenous, | | 8 15:52 | | | | | POSTPROCEDURE PRN, 4 doses, | | PDT | | | | [...] 06/11/18 at | | | 2306, Until 06/17/18 at 1718, | | | CBG less [...] +--------+---+---+ | HYDROmorphone (DILAUDID) | Given | | 0.2 mg | | | | injection 0.2-0.5 mg 0.2-0.5 mg, | | 8 17:45 | | | | | intravenous, POSTPROCEDURE PRN, | | PDT | | | | | Starting Fri06/12/18 at 1403, | | | | | | | Until Fri06/12/18 at 2127, | | | | | | | moderate pain while in Phase I | | | | | | | Recovery | | | | | | + +-------+ +--------+---+---+ +-------+ +--------+---+---+ | Given | | 0.3 mg | | | | | 8 17:57 | | | | | | PDT | | | | +-------+ +--------+---+---+ | Given | | 0.5 mg | | | | | 8 18:15 | | | | | | PDT [...] +---------+---+--------+ +---+---+ | | | +---+---+ + +---------+ +--------+---+---+ | lactated Ringers IV 500 mL, | New Bag | | 500 mL | | | | intravenous, ONCE, 1 dose, Mon | | 8 09:54 | | | | | 06/15/18 at 0930 | | PDT | | | | + +---------+ [...] | | +---+---+ + +-------+ +--------+---+---+ | oxyCODONE (immediate release) | Given | | 2.5 mg | | | | (ROXICODONE) tablet 2.5-5 mg | | 8 21:51 | | | | | 2.5-5 mg, oral, EVERY 6 HOURS | | PDT | | | | | NEEDED, Starting 06/12/18 at | | | | | | | 1618, Until 06/13/18 at 1823, | | | | | | | severe pain | | | | | | + +-------+ +--------+---+---+ +-------+ +------+---+---+ | Given | | 5 mg | | | | | 8 04:05 | | | | | | PDT | | | | +-------+ +------+---+---+ +---+---+ | | | +---+---+ + +---------+ +---------+---+---+ | piperacillin-tazobactam (ZOSYN) | New Bag | | 3.375 g | | | | IV (minibag+) 3.375 g 3.375 g, | | 8 04:06 | | | | | intravenous, EVERY 8 HOURS, First | | PDT | | | | | dose on 06/13/18 at 0400, | | | | | | | Until Discontinued | | | | | | + +---------+ +---------+---+---+ +---------+ +---------+---+---+ | New Bag | | 3.375 g | | | | | 8 13:16 | | | | | | PDT | | | | +---------+ +---------+---+---+ +---+---+ | | | +---+---+ + +---------+ +-------+---+---+ | piperacillin-tazobactam (ZOSYN) | New Bag | | 4.5 g | | | | IV (minibag+) 4.5 g 4.5 g, | | 8 22:19 | | | | | intravenous, ONCE, 1 dose, Fri | | PDT | | | [...] simvastatin (ZOCOR) tablet 40 | Given | | 40 mg | | | | mg 40 mg, oral, EVERY EVENING, | | 8 21:51 | | | | | First dose on Fri06/12/18 at | | PDT | | | | | 2145, Until Discontinued | | | | | | + +-------+ +-------+---+---+ +-------+ +-------+---+---+ | Given | | 40 mg | | | | | 8 21:43 | | | | | | PDT [...] (VANCOCIN) IV 1,000 | New Bag | | 1,000 mg | | | | mg 1,000 mg, intravenous, ONCE, | | 8 22:58 | | | | | 1 dose, 06/12/18 at 2300 | | PDT | | | | + +---------+ + +---+---+ +---+---+ | | | +---+---+ + +---------+ + +---+---+ | vancomycin (VANCOCIN) IV 1,250 | New Bag | | 1,250 mg | | | | mg 1,250 mg, intravenous, EVERY | | 8 18:06 | | | | | 24 HOURS, First dose on Sat | | PDT | | | | | 06/13/18 at 1800, Until | | | | | | | Discontinued | | | | | | + +---------+ + +---+---+ +---------+ + +---+---+ | New Bag | | 1,250 mg | | | | | 8 18:55 | | | | | | PDT | | | | +---------+ + +---+---+ +---+---+ | | | +---+---+ + +-------+ +--------+---+---+ | warfarin (COUMADIN) tablet 2.5 | Given | | 2.5 mg | | | | mg 2.5 mg, oral, EVERY EVENING, | | 8 21:37 | | | | | First dose on 06/16/18 at | | PDT | | | | | 2100, Until Discontinued | | | | | | + +-------+ +--------+---+---+ +---+---+ | | | +---+---+ + +-------+ +------+---+---+ | warfarin (COUMADIN) tablet 5 mg | Given | | 5 mg | | | | 5 mg, oral, EVERY EVENING, | | 8 21:38 | | | | | First dose on 06/14/18 at | | PDT | | | | | 2100, Until Discontinued | | | | | | + +-------+ +------+---+---+ +-------+ +------+---+---+ | Given | 06/15/ | 5 mg | | | | | 8 20:54 | | | | | | PDT | | | | +-------+ +------+---+---+ +---+---+ | | | +---+---+ in this encounter
--- OUTSIDE RECORDS SUMMARY | ~2018-07-13 | XMS | Clinical Summary ---
Demographics + + + | Address | [address] | | | [place] [address] | + + + | Home Phone [...] Team Providers + +------+ + | Care Fence Erector Supervisor Name | Role | Phone | + +------+ + | Gilma Culver MD | PP | | + +------+ + Source Comments [facility] is fully live on both [facility] and [facility] Allergies + + + + + + | Active Allergy | Reactions | Severity | Noted | Comments | | | | | Date | | + + + + + + | Nsaids | Renal Failure | High | 06/14/20 | Avoid per | | (Non-Steroidal | | | 18 | Electric Switch Tester | | Anti-Inflammatory | | | | [...] + + + Current Medications + + + +---------+------+------+-------+ | Prescription | Sig. | Disp. | Refills | Star | End | Statu | | | | | | t | Date | s | | | | | | Date | | | + + + +---------+------+------+-------+ | torsemide 20 mg | Take 20 mg by mouth | | | | | Activ | | oral tablet | two times daily. | | | | | e | + + + +---------+------+------+-------+ | carvedilol 12.5 mg | Take 12.5 mg by | | | | | Activ | | oral tablet | mouth two times | | | | | e | | | daily. Administer | | | | | | | | with food. | | | | | | + + + +---------+------+------+-------+ | allopurinol 300 mg | Take 300 mg by mouth | | | | | Activ | | oral tablet | once daily. | | | | | e | + + + +---------+------+------+-------+ | colchicine 0.6 mg | Take 0.6 mg by mouth | | | | | Activ | | oral tablet | once daily as | | | | | e | | | needed (gout flare). | | | | | | | | | | | | | | + + + +---------+------+------+-------+ | warfarin 2.5 mg | Take 2 tablets by | | | | | Activ | | oral tablet | mouth every | | | | | e | | | Friday. Take 1 | | | | | | | | tablet by mouth all | | | | | | | | other days of the | | | | | | | | week. | | | | | | + + + +---------+------+------+-------+ | cholecalciferol | Take 1,000 Units by | | | | | Activ | | (Vitamin D3) 1,000 | mouth once daily. | | | | | e | | unit oral tablet | | | | | | | + + + +---------+------+------+-------+ | folic acid 0.4 mg | Take 400 mcg by | | | | | Activ | | oral tablet | mouth once daily. | | | | | e | + + + +---------+------+------+-------+ | multivitamin oral | Take 1 tablet by | | | | | Activ | | tablet | mouth once daily. | | | | | e | + + + +---------+------+------+-------+ | magnesium oxide | Take 400 mg by mouth | | | | | Activ | | 400 mg oral tablet | once daily. | | | | | e | + + + +---------+------+------+-------+ | | Take 1 tablet by | | | | | Activ | | acetaminophen-codein | mouth every six | | | | | e | | e 300-30 mg oral | hours as needed. | | | | | | | tablet | | | | | | | + + + +---------+------+------+-------+ | | Inhale 1 puff two | | | | | Activ | | fluticasone-salmeter | times daily. | | | | | e | | ol 250-50 mcg/dose | | | | | | | | inhalation blister | | | | | | | | with device | | | | | | | + + + +---------+------+------+-------+ | allopurinol 300 mg | Take 150 mg by mouth | | | | | Activ | | oral tablet | once daily. | | | | | e | + + + +---------+------+------+-------+ | carvedilol 12.5 mg | Take 12.5 mg by | | | | | Activ | | oral tablet | mouth two times | | | | | e | | | daily. Administer | | | | | | | | with food. | | | | | | + + + +---------+------+------+-------+ | colchicine 0.6 mg | Take 0.6 mg by mouth | | | | | Activ | | oral tablet | two times daily. | | | | | e | + + + +---------+------+------+-------+ | warfarin 2.5 mg | Take 2.5 mg by mouth | | | | | Activ | | oral tablet | once daily. | | | | | e | + + + +---------+------+------+-------+ | doxycycline | Take 100 mg by mouth | | | | | Activ | | hyclate 100 mg oral | every twelve hours. | | | | | e | | tablet | (Pharmacist to | | | | | | | | substitute salt form | | | | | | | | as needed) | | | | | | + + + +---------+------+------+-------+ | folic acid 0.4 mg | Take 400 mcg by | | | | | Activ | | oral tablet | mouth once daily. | | | | | e | + + + +---------+------+------+-------+ | glimepiride 4 mg | Take 4 mg by mouth | | | | | Activ | | oral tablet | once daily with | | | | | e | | | breakfast. | | | | | | + + + +---------+------+------+-------+ | isosorbide | Take 60 mg by mouth | | | | | Activ | | mononitrate CR 60 mg | once daily. | | | | | e | | oral tablet | | | | | | | | extended release 24 | | | | | | | | hr | | | | | | | + + + +---------+------+------+-------+ | cephALEXin 500 mg | Take 500 mg by mouth | | | | | Activ | | oral capsule | every six hours. | | | | | e | + + + +---------+------+------+-------+ | magnesium oxide | Take 400 mg by mouth | | | | | Activ | | 400 mg oral tablet | once daily. | | | | | e | + + + +---------+------+------+-------+ | metFORMIN 500 mg | Take 500 mg by mouth | | | | | Activ | | oral tablet | two times daily. | | | | | e | + + + +---------+------+------+-------+ | methotrexate 2.5 | Take 2.5 mg by mouth | | | | | Activ | | mg oral tablet | every seven days. | | | | | e | + + + +---------+------+------+-------+ | mupirocin 2 % | three times daily. | | | | | Activ | | topical ointment | Apply to affected | | | | | e | | | area. | | | | | | + + + +---------+------+------+-------+ | niacin 500 mg oral | Take 500 mg by mouth | | | | | Activ | | tablet | once daily in the | | | | | e | | | evening. | | | | | | + + + +---------+------+------+-------+ | torsemide 20 mg | Take 20 mg by mouth | | | | | Activ | | oral tablet | once daily. | | | | | e | + + + +---------+------+------+-------+ | triamcinolone | Apply to affected | | | | | Activ | | acetonide 0.1 % | area three times | | | | | e | | topical cream | daily. Apply thin | | | | | | | | film to affected | | | | | | | | areas. | | | | | | + + + +---------+------+------+-------+ | omega | Take by mouth. | | | | | Activ | | 0-awe-bpp-fish oil | | | | | | e | | (FISH OIL) | | | | | | | | 100-160-1,000 mg | | | | | | | | oral capsule | | | | | | | + + + +---------+------+------+-------+ | antiox.mv | Take 1 capsule by | | | | | Activ | | no.09-[id number]-tzy-dln | mouth once daily. | | | | | e | | (I-CAPS) 280-10-2 | | | | | | | | mg oral capsule | | | | | | | + + + +---------+------+------+-------+ | omega-3 fatty | Take 1 capsule by | | | | | Activ | | acids (FISH OIL | mouth once daily. | | | | | e | | ORAL) | | | | | | | + + + +---------+------+------+-------+ | glimepiride 4 mg | Take 4 mg by mouth | | | | | Activ | | oral tablet | once daily with | | | | | e | | | breakfast. | | | | | | + + + +---------+------+------+-------+ | Niacinamide 500 mg | Take 1 tablet by | | | | | Activ | | oral tablet | mouth three times | | | | | e | | | daily. | | | | | | + + + +---------+------+------+-------+ | methotrexate 2.5 | Take 15 mg by mouth | | | | | Activ | | mg oral tablet | every seven days. | | | | | e | + + + +---------+------+------+-------+ | metFORMIN SR 500 | Take 1,000 mg by | | | | | Activ | | mg oral tablet | mouth two times | | | | | e | | extended release 24 | daily with meals. | | | | | | | hr | Administer with | | | | | | | | evening meal. | | | | | | + + + +---------+------+------+-------+ | | Take 1 tablet by | 30 | 0 | 08/2 | | Activ | | acetaminophen-codein | mouth every six | tablet | | 1/20 | | e | | e 300-30 mg oral | hours as needed for | | | 18 | | | | tablet | severe pain. | | | | | | + + + +---------+------+------+-------+ | senna-docusate | Take 1 tablet by | 60 | 0 | 08/2 | | Activ | | 8.6-50 mg oral | mouth two times | tablet | | 1/20 | | e | | tablet | daily. | | | 18 | | | + + + +---------+------+------+-------+ | simvastatin 40 mg | Take 40 mg by mouth | | | | | Activ | | oral tablet | once daily in the | | | | | e | | | evening. | | | | | | + + + +---------+------+------+-------+ | eplerenone 25 mg | Take 12.5 mg by | | | | | Activ | | oral tablet | mouth once daily. | | | | | e | + + + +---------+------+------+-------+ | ceFAZolin | Inject 2,000 mg into | 138 g | 0 | 09/0 | 09/2 | Activ | | injection recon | the vein (IV) every | | | 03/15 | 06/15 | e | | solnIndications: | eight hours for 23 | | | 18 | 18 | | | bone/joint infection | days. To be admixed | | | | | | | | per infusion | | | | | | | | pharmacy standard | | | | | | | | policy and/or | | | | | | | | procedure. | | | | | | | | Indications: | | | | | | | | bone/joint infection | | | | | | + + + +---------+------+------+-------+ | heparin | Inject 0.5 mL under | 6 each | 0 | 08/2 | 082 | Expir | | sodium,porcine/PF | the skin (SUBC) | | | 12/16 | 02/13 | ed | | (HEPARIN, PORCINE | every eight hours | | | 18 | 18 | | | (PF)) 5,000 unit/0.5 | for 2 days. 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) | 06/16/2018 | + + + | Pyogenic arthritis of right knee joint, due to unspecified | 06/12/2018 | | organism (HCC) | | + + + | Pyogenic arthritis of right knee joint (HCC) | 06/11/2018 | + + + | Coronary artery disease involving coronary bypass graft without | 06/11/2018 | | angina pectoris | | + + + | Hypertension | 06/11/2018 | + + + | Ischemic cardiomyopathy | 06/11/2018 | + + + | Systolic heart failure (HCC) | 06/11/2018 | + + + | Obstructive sleep apnea | 06/11/2018 | + + + | Atrial fibrillation (HCC) | 06/11/2018 | + + + | Hyperlipidemia | 06/11/2018 | + + + | Heart block | 06/11/2018 | + + + | 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 to | 06/11/2018 | | support life | | + + + | 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); | | | | | | Infectious disease | +--------+ + + + + | 07/08/ | Documentati | | Abril Shields, | | | 2017 | on | | MD | | +--------+ + + + + | 07/03/ | Documentati | | Abril Shields, | Laboratory Test | | 2017 | on | | MD | Result Abnormal | +--------+ + + + + | 07/02/ | Documentati | | Jaye Winchester, | RN Care Management | | 2017 | on | | RN | (correct cefazolin | | | | | | orders) | +--------+ + + + + | 07/01/ | Telephone | | Celia Hawthorne RN | Transitional Care | | 2017 | | | | Management; | | | | | | Infectious disease | +--------+ + + + + | 06/26/ | Telephone | | Abril Shields, | | | 2017 | | | MD | | +--------+ + + + + | 06/24/ | Telephone | | Jaye Winchester, | Transitional Care | | 2017 | | | RN | Management (OPAT); | | | | | | Infectious disease | +--------+ + + + + | 06/17/ | Documentati | | Jaye Winchester, | RN Care Management | | 2017 | on | | RN | (OPAT); Infectious | | | | | | disease | +--------+ + + + + | 06/12/ | Procedure | | | | | 2017 | Pass | | | | +--------+ + + + + | 06/12/ | Surgery | | Sandoval Hyde, | RIGHT KNEE I&D, | | 2017 | | | MD | POSSIBLE COMPONENT | | | | | | EXCHANGE, POSSIBLE | | | | | | REVISION | +--------+ + + + + | 06/12/ | Anesthesia | | Princess Ward MD | | | 2017 | Event | | | | +--------+ + + + + | 06/12/ | Procedure | | | | | 2018 | Pass | | | | +--------+ + + + + | 06/12/ | Surgery | | Sandoval Hyde, | RIGHT KNEE I&D, POLY | | 2017 | | | MD | EXCHANGE MICRO x 7 | | | | | | PATH x 2 | +--------+ + + + + | 06/11/ | Hospital | | Sandra Valle MD | | | 2018 - | Encounter | | Edyta Demarco, | | | | | | Dean Naik, | | | 06/17/ | | | Stephan Pimentel | | | 2017 | | | MD Nicolle Perdomo, | | | | | | Flaquita Walton MD | | | | | | Hugh Park MD | | | | | | Ann Mahmood, | | | | | | MD | | +--------+ + + + + +---+ + | | Discharge | | | Summaries | | | - Timoteo, | | | Ann Napoles, | | | MD - | | | 06/16/2018 | | | 5:49 PM | | | PDT | | | Formatting | | | of this | | | note may be | | | different | | | from the | | | original.Cl | | | inical | | | Hospitalist | | | Discharge | | | SummaryPCP: | | | Gilma | | | MD Sean | | | Author: | | | Ann | | | Timoteo, | | | MDDischargi | | | ng | | | Physician: | | | Ann | | | MD Timoteo | | | Admission | | | Date: | | | 06/11/2018 | | | Discharge | | | Date: | | | 06/17/2018 | | | Diagnoses | | | Principal | | | Final | | | Diagnosis: | | | 1. Right | | | prosthetic | | | knee joint | | | infection2. 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 Acute on | | | chronic | | | kidney | | | injury | | | stage III4. | | | Chronic | | | systolic | | | heart | | | failure5. | | | Ischemic | | | cardiomyopa | | | thy6. | | | Diabetes | | | mellitus | | | type 27. | | | Normocytic | | | anemia8. | | | Bilateral | | | lower | | | extremity | | | edema9. | | | History of | | | DVT10. | | | Coronary | | | artery | | | zbmitpm12. | | | OSA12. Gout | | | | | | Procedures: | | | Procedures | | | 1. Right | | | knee | | | washout | | | with | | | polyethylen | | | e exchange | | | on 06/12/18 | | | Reason For | | | Admission: | | | Júnior | | | Chace is a | | | 78 y.o. | | | Male with | | | history of | | | CAD (s/p | | | PCI x3, | | | CABG x2) | | | complicated | | | by chronic | | | systolic | | | heart | | | failure (EF | | | 45%) due | | | to ICM, | | | sinus node | | | dysfunction | | | s/p | | | pacemaker | | | placement | | | 2016, | | | Afib, HLD, | | | DM2 (a1c | | | 6.2), CKD | | | stage III | | | (baseline | | | Cr ~1.7), | | | SEUN, severe | | | cervical | | | stenosis, | | | prior DVT, | | | R knee OA | | | s/p total | | | knee | | | replacement | | | 2012, and | | | chronic | | | venous | | | insufficien | | | cy, who was | | | admitted | | | from the ED | | | to the | | | medicine | | | service on | | | 06/11/2018 | | | for | | | management | | | of a | | | prosthetic | | | right knee | | | joint | | | infection | | | s/p washout | | | and | | | polyethylen | | | e exchange. 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 | | | Cultures | | | grew Staph | | | epidermidis | | | . Per ID, | | | he was | | | transitione | | | d from | | | vancomycin | | | to | | | cefazolin | | | on 06/16 | | | with plans | | | for an 6 | | | week course | | | of | | | therapy. | | | Treatment | | | failure is | | | possible | | | due to | | | retained | | | hardware | | | and the | | | patient | | | understands | | | that he | | | may still | | | require | | | repeat | | | surgery. | | | PICC was | | | placed 06/16 | | | for | | | antibiotic | | | administrat | | | ion. He | | | will F/U | | | with Dr. | | | Friess | | | (orthopedic | | | surgery) | | | on 07/23/18 | | | at 10:40am. | | | ID will | | | arrange a | | | follow-up | | | appointment | | | for that | | | day as | | | well. He | | | has been | | | receiving | | | Tylenol #3 | | | for pain | | | control | | | with | | | excellent | | | response. | | | He will | | | continue | | | PT[facility]OT [facility] | | [facility] | | | [facility]. Per | | | orthopedic | | | surgery, | | | stitches in | | | his knee | | | can be | | | removed in | | | 2 weeks | | | after | | | surgery | | | (06/26/18). | | | # Acute on | | | chronic | | | kidney | | | injury | | | stage III: | | | He likely | | | has CKD | | | stage III | | | with a | | | baseline | | | creatinine | | | of 1.7. His | | | creatinine | | | had been | | | back to | | | baseline | | | before | | | acutely | | | rising to | | | 2.17. Urine | | | sodium is | | | 5 with FENa | | | <1%, | | | suggesting | | | prerenal | | | injury - | | | likely | | | either | | | intravascul | | | ar | | | hypovolemia | | | or | | | cardiorenal | | | . He | | | received a | | | fluid bolus | | | with | | | modest | | | improvement | | | . He was | | | restarted | | | on | | | torsemide | | | on 06/16 and | | | his renal | | | function | | | returned to | | | baseline. | | | He will | | | need repeat | | | labs at | | | the end of | | | this week | | | to ensure | | | stability. | | | # | | | Chronic | | | systolic | | | heart | | | failure# | | | Ischemic | | | cardiomyopa | | | thy:He has | | | chronic | | | systolic | | | heart | | | failure | | | secondary | | | to ischemic | | | | | | cardiomyopa | | | thy. He was | | | continued | | | on his home | | | | | | carvedilol, | | | but | | | torsemide, | | | isosorbide | | | and | | | eplerenone | | | were held | | | due to ALVINO | | | and low | | | blood | | | pressures. | | | He was | | | restarted | | | on | | | torsemide | | | prior to | | | discharge. | | | It appears | | | that he was | | | previously | | | on | | | losartan, | | | but may not | | | be able to | | | tolerate | | | this | | | medication | | | going | | | forward. He | | | was | | | restarted | | | on | | | eplerenone | | | 12.5mg | | | daily at | | | discharge. | | | # | | | Diabetes | | | mellitus | | | type 2: | | | Non-insulin | | | dependent | | | diabetes. | | | He uses | | | metformin | | | and | | | glimepiride | | | at home. | | | Hemoglobin | | | A1c 6.2 | | | suggesting | | | good | | | control at | | | home. These | | | oral | | | agents were | | | held in | | | the | | | hospital | | | and | | | restarted | | | at | | | discharge. | | | # | | | Normocytic | | | Anemia: Ac | | | stevie to | | | subacute, | | | mild, | | | normocytic. | | | Suspect | | | anemia of | | | inflammatio | | | n. His Hgb | | | remained | | | stable. # | | | Bilateral | | | LE edema: | | | He had | | | evidence of | | | chronic | | | venous | | | insufficien | | | cy and may | | | have some | | | degree of | | | chronic | | | edema | | | related to | | | heart | | | failure. | | | Compression | | | wraps were | | | continued. | | | # | | | History of | | | DVT: [place] | | | ked DVT in | | | 2012, but | | | he has been | | | on | | | warfarin | | | since that | | | time. Held | | | for | | | surgery. | | | Unclear if | | | there is | | | an | | | additional | | | indication | | | for | | | warfarin as | | | provoked | | | DVT would | | | have only | | | required | | | 3-6 months | | | of therapy. | | | There was | | | some chart | | | history of | | | Afib, so | | | perhaps | | | that is the | | | | | | indication. | | | ECG here | | | showed | | | sinus | | | rhythm. | | | Restarted | | | warfarin | | | this | | | admission | | | and bridged | | | with | | | subcutaneou | | | s heparin | | | to prevent | | | blood clots | | | after | | | surgery. | | | Will defer | | | need for | | | long-term | | | therapy to | | | PCP. # | | | CAD: Stable | | | with no | | | evidence of | | | acute | | | ischemia. | | | He was | | | restarted | | | on his home | | | | | | simvastasti | | | n. # | | | SEUN: Nonco | | | mpliant | | | with | | | BiPAP. # | | | Gout: No | | | evidence of | | | an acute | | | gout flare. | | | He was | | | continued | | | on | | | allopurinol | | | 300 mg | | | daily. | | | Discharge | | | physical | | | examVital | | | Signs at | | | discharge:B | | | P: 105/55 | | | | | | (06/16/18 | | | 1551) | | | Pulse: 89 | | | | | | (06/16/18 | | | 1551) | | | Resp: 16 | | | | | | (06/16/18 | | | 0226) | | | Weight: | | | 84.1 kg | | | (185 lb 6.5 | | | oz) | | | (new bed | | | since | | | yesterday) | | | | | | (06/15/18 | | | 0630) Body | | | mass index | | | is 29.04 | | | kg/m .Gene | | | ral: Awake, | | | alert and | | | oriented. | | | NAD. | | | Well-appear | | | ing. | | | Sitting up | | | in a | | | chairNeck: | | | JVP 2cm | | | above the | | | clavicle | | | sitting | | | upright | | | with | | | HJRCardiova | | | scular: | | | RRR, nl | | | S1/S2, no | | | murmursResp | | | iratory: A | | | few | | | crackles, | | | greatest in | | | the | | | basesAbdome | | | n: +BS, | | | soft, | | | non-tender, | | | | | | non-distend | | | ed. Ext: | | | warm, | | | pulses | | | present. | | | Chronic | | | venous | | | stasis with | | | 1+ | | | edemaSkin: | | | no rashes | | | or | | | lesionsMusc | | | ulo: Right | | | knee with | | | bandaged | | | incision | | | and wound | | | vac in | | | place. No | | | drainsDisch | | | arge | | | weight: Wt | | | Readings | | | from Last 1 | | | | | | Encounters: | | | 06/15/ | | | 84.1 kg | | | (185 lb 6.5 | | | oz) | | | Pertinent | | | Findings:[place] | | | bs at | | | discharge: | | | sodium 138, | | | potassium | | | 4, | | | creatinine | | | 1.73INR | | | 1.78Micro: | | | 06/12 Knee | | | cx: Staph | | | epidermidis | | | Imaging: | | | CXR today: | | | Right upper | | | extremity | | | PICC | | | obscured by | | | pacer | | | leads with | | | tip in | | | either the | | | mid or | | | lower | | | superior | | | vena | | | cavaConsult | | | ants: | | | Orthopedic | | | surgery- | | | Dr. Nick | | | FriessID- | | | Dr. Quiros | | | CurlinOutst | | | anding | | | labs/studie | | | s: none | | | Code | | | Status: | | | FullPOLST | | | completed: | | | noCore | | | Measures: | | | Diagnosis | | | of CHF: | | | Yes. | | | Patient is | | | not on an | | | DAIJA-I/ARB | | | because of | | | renal | | | failure. | | | Patient is | | | on a | | | beta-blocke | | | r at | | | discharge. | | | Medication | | | List | | | START | | | taking | | | these | | | medications | | | ceFAZolin | | | | | | SolrCommonl | | | y known as: | | | | | | ANCEFInject | | | 2,000 mg | | | into the | | | vein (IV) | | | every eight | | | hours. To | | | be admixed | | | per | | | infusion | | | pharmacy | | | standard | | | policy | | | and/or | | | procedure. | | | Indications | | | : | | | bone/joint | | | infection | | | heparin, | | | porcine | | | (PF) 5,000 | | | unit/0.5 mL | | | SolnInject | | | 0.5 mL | | | under the | | | skin (SUBC) | | | every | | | eight hours | | | for 2 | | | days. | | | Indications | | | : Deep Vein | | | Thrombosis | | | Prevention | | | | | | senna-docus | | | ate 8.6-50 | | | mg | | | TabCommonly | | | known as: | | | SENOKOT | | | STake 1 | | | tablet by | | | mouth two | | | times | | | daily. | | | CHANGE how | | | you take | | | these | | | medications | | | | | | acetaminoph | | | en-codeine | | | 300-30 mg | | | TabCommonly | | | known as: | | | TYLENOL | | | #3Take 1 | | | tablet by | | | mouth every | | | six hours | | | as needed | | | for severe | | | pain.What | | | changed: | | | when to | | | take this | | | CONTINUE | | | taking | | | these | | | medications | | | | | | allopurinol | | | 300 mg | | | TabCommonly | | | known as: | | | | | | ZYLOPRIMTak | | | e 300 mg by | | | mouth once | | | daily. | | | carvedilol | | | 12.5 mg | | | TabCommonly | | | known as: | | | COREGTake | | | 12.5 mg by | | | mouth two | | | times | | | daily. | | | Administer | | | with food. | | | cholecalcif | | | fernanda | | | (Vitamin | | | D3) 1,000 | | | unit | | | TabCommonly | | | known as: | | | VITAMIN | | | D-3Take | | | 1,000 Units | | | by mouth | | | once daily. | | | colchicine | | | 0.6 mg | | | TabTake 0.6 | | | mg by | | | mouth once | | | daily as | | | needed | | | (gout | | | flare). | | | eplerenone | | | 25 mg | | | TabCommonly | | | known as: | | | INSPRATake | | | 12.5 mg by | | | mouth once | | | daily. | | | FISH OIL | | | ORALTake 1 | | | capsule by | | | mouth once | | | daily. | | | folic acid | | | 0.4 mg | | | TabCommonly | | | known as: | | | | | | FOLVITETake | | | 400 mcg by | | | mouth once | | | daily. | | | glimepiride | | | 4 mg | | | TabCommonly | | | known as: | | | AMARYLTake | | | 4 mg by | | | mouth once | | | daily with | | | breakfast. | | | I-CAPS | | | 280-10-2 mg | | | CapGeneric | | | drug: | | | antiox.mv | | | no.10-omeg3 | | | s-lut-zeaTa | | | ke 1 | | | capsule by | | | mouth once | | | daily. | | | magnesium | | | oxide 400 | | | mg | | | TabCommonly | | | known as: | | | MAG-OXTake | | | 400 mg by | | | mouth once | | | daily. | | | metFORMIN | | | SR 500 mg | | | [id number] | | | y known as: | | | | | | GLUCOPHAGE | | | XRTake | | | 1,000 mg by | | | mouth two | | | times daily | | | with | | | meals. | | | Administer | | | with | | | evening | | | meal. | | | methotrexat | | | e 2.5 mg | | | TabTake 15 | | | mg by mouth | | | every | | | seven days. | | | | | | multivitami | | | n | | | TabCommonly | | | known as: | | | THERA | | | VITAMINTake | | | 1 tablet | | | by mouth | | | once daily. | | | | | | Niacinamide | | | 500 mg | | | TabTake 1 | | | tablet by | | | mouth three | | | times | | | daily. | | | simvastatin | | | 40 mg | | | TabCommonly | | | known as: | | | ZOCORTake | | | 40 mg by | | | mouth once | | | daily in | | | the | | | evening. | | | torsemide | | | 20 mg | | | TabCommonly | | | known as: | | | | | | DEMADEXTake | | | 20 mg by | | | mouth two | | | times | | | daily. | | | warfarin | | | 2.5 mg | | | TabCommonly | | | known as: | | | | | | COUMADINTak | | | e 2 tablets | | | by mouth | | | every | | | Friday. | | | Take 1 | | | tablet by | | | mouth all | | | other days | | | of the | | | week. STOP | | | taking | | | these | | | medications | | | | | | isosorbide | | | mononitrate | | | CR 60 mg | | | [id number] | | | y known as: | | | IMDUR | | | losartan 50 | | | mg | | | TabCommonly | | | known as: | | | COZAAR | | | potassium | | | chloride SR | | | 10 mEq | | | TbtqCommonl | | | y known as: | | | K-DUR | | | Rationale | | | for | | | Medication | | | Changes: | | | Stopped his | | | home ISMN | | | and | | | losartan | | | due to low | | | blood | | | pressures | | | and issues | | | with | | | AKIStarted | | | cefazolin | | | for | | | treatment | | | of his | | | infectionAl | | | lergies: | | | Allergies | | | Allergen | | | Reactions | | | | | | Nsaids | | | (Non-Steroi | | | trish | | | Anti-Inflam | | | matory | | | Drug) Renal | | | Failure | | | Avoid per | | | Nephrologis | | | t | | | recommendat | | | ions | | | Sulfa | | | (Sulfonamid | | | e | | | Antibiotics | | | ) Rash | | | Vital Signs | | | Per policy | | | PPD for | | | Facility | | | Administer | | | PPD upon | | | arrival | | | Weigh | | | Patient | | | Daily Weigh | | | yourself | | | daily and | | | keep a | | | record of | | | your | | | weight. | | | Diet | | | Regular | | | Regular | | | diet- There | | | are no | | | restriction | | | s to your | | | diet. You | | | may eat or | | | drink | | | whatever | | | you prefer, | | | though | | | healthy | | | food | | | choices are | | | | | | recommended | | | . Activity | | | No | | | activity | | | restriction | | | s Contact | | | | | | information | | | for | | | after-disch | | | arge care | | | Discharge | | | Destination | | | IP ST | | | [facility] | | | Specialty: | | | Acute | | | Care | | | [facility] | | | tact | | | information | | | [address] | | | [address] | | | n [place] | | | [address] | | | [phone] | | | [place] | | | Location: | | | [facility] | | | swing bed | | | unitAppoint | | | ments: Dr. | | | Friess on | | | 07/23/18 at | | | 10:40am. | | | The | | | discharge | | | note was | | | forwarded | | | to the PCP | | | for review. | | | | | | Discharging | | | Physician: | | | Ann | | | MD Timoteo | | | Suggested | | | CPT: 32992 | | | Discharge | | | Management | | | > 30 | | | minuteI | | | spent more | | | than 35 | | | minutes | | | face-to-fac | | | e with the | | | patient of | | | which 70% | | | was spent | | | counseling | | | the patient | | | about | | | plans for | | | discharge | | | and F/U | | | with ortho | | | and ID, and | | | | | | coordinatin | | | g care with | | | nursing, | | | ortho, ID | | | and case | | | management. | +---+ + +--------+ +---+ +-----+ | 06/11/ | Anesthesia | | Princess Ward MD | | | 2018 | Event | | | | +--------+ +---+ +-----+ | 06/11/ | Emergency | | Sandoval Hyed, | | | 2018 | | | | | +--------+ +---+ +-----+ | 06/11/ | Intake | | | N/A | | 2018 | | | | | +--------+ +---+ +-----+ from Last 3 Months Social History + +-------+ +--------+------+ | Tobacco [...] + + | 07/14/ | Appointment | | Sandoval Hyde, | | | 2017 | | | MD [facility] | | | | | | [address] | | | | | | [place], [place] | | | | | | [address] | | | | | | [phone] | | | | | | | | +--------+ + + + + | 07/15/ | Office | | Abril Shields, | | | 2017 | Visit | | MD [facility] | | | | | | [address] | | | | | | [place], [place] | | | | | | [address] | | | | | | [phone] | | | | | | | | +--------+ + + + + + + + + + | Health Maintenance | Due Date | Last Done | Comments | + + + + + | Pneumococcal (Adult) | | 07/24/2009 | | | (2 of 2 - PCV13) | 0 | | | + + + + + | INFLUENZA VACCINE | | 09/10/2016, 08/17/2014, | | | (FLU SHOT) | 8 | 07/08/2009 | | + + + + + Implants + +------+--------+ +--------+--------+--------+ | Implanted | Type | Area | Manufacture | Device | Expira | Model | | | | | r | | tion | / | | | | | | Identi | Date | Serial | | | | | | fier | | / Lot | + +------+--------+ +--------+--------+--------+ | Tibial Bearing Insert Size 5 | | Right: | MARIALUISA | | 11/26/ | [id number] | | 13mm Implanted: Qty: 1 on | | Knee | | | 2019 | -51 / | | 06/12/2018 by Sandoval Hyde | | | | | | | | M, MD | | | | | | /[id number] | | | | | | | | 3 | + +------+--------+ +--------+--------+--------+ Procedures + +--------+ + + + [...] | + +--------+ + + + | LAZARO PNB SS | Routin | 06/12/2018 | | | | | e | 12:59 PM | | | | | | PDT | | | + +--------+ + + + +---+--------+ | | | | | Proced | | | ure | | | Note - | | | | | | Janneth | | | l, | | | Jovan | | | t | | | Willia | | | m, MD | | | - | | | 08/17/ | | | 2018 | | | [...] | | | t | | | JANNETH | | | L, | | | [...] images | | | . | +---+--------+ + +--------+ + + + | KNEE [...] + + from Last 3 Months Results CAPILLARY BLOOD GLUCOSE (NO CHG), POC (06/17/2018 8:59 AM)Only the most recent of 21 resul ts within the time period is included. + +---------+ + + | Component | [...] | [facility] | [address] | [place], [place] | | | [facility] | [address] | [address] | | | TESTS | | | | + + + + + INR (06/17/2018 3:59 AM)Only the most recent of 5 results within the time period is includ ed. + + + + + | Component | Value | Ref Range | Performed At | + + + + + | INR | 1.78 (H) | 0.90 - 1.20 INR | [facility] | | | | | SERVICES, CORE | + + + + + + + | Specimen | + + | Blood - Blood | + + + + + | Narrative | Performed At | + + + | INR Therapeutic ranges for full anticoagulation: INR for | [facility] | | Venous Thromboembolism (2.0 - 3.0) INR INR | LABORATORY | | for most patients with mech. valves (2.5 - 3.5) INR | STEF, CORE | + + + + + + + + | Performing | Address | City/State/Zipcode | Phone Number | | Organization | | | | + + + + + | [facility] | [address] | [place] [address] | | | SERVICES, CORE | [address] | | | + + + + + BASIC METABOLIC SET (NA, K, CL, TCO2, BUN, CR, GLU, CA) (06/17/2018 3:59 AM)Only the most recent of 4 results within the time period is included. + + + + + | Component [...] [facility] | | | | | STEF CORE | + + + + + | CREATININE PLASMA | 1.73 (H) | 0.70 - 1.30 mg/dL | [facility] | | (LAB) | | | SERVICES, CORE | + + + + + | EGFR - | 46 (L) | >60 mL/min | [facility] | | [facility] | | | STEF, CORE | + + + + + | EGFR NON | 38 (L) | >60 mL/min | [facility] | | -[facility] | | | SERVICES, CORE | + [...] (L) | 8.6 - 10.2 mg/dL | [facility] | | (LAB) | | | SERVICES, CORE | + + + + + | ANION GAP | 5 | 4 - 11 mmol/L | [facility] | | | | | SERVICES, CORE | + + + + + | POTASSIUM CMNT | No Hemo | | [facility] | | | | | SERVICES, [...] | + + + + + | [facility] | [address] | [place] [address] | | | SERVICES, [facility] | [address] | | | + + + + + X-RAY PORTABLE CHEST 1 VIEW (06/16/2018 4:29 PM) + + + | Narrative | Performed At | + + + | EXAM: [place] CHEST 1 VIEW HISTORY: PICC placement. Prosthetic [...] 06/16/2018 4:43 PM Preliminary: Skye Frye | | Dictation initiated: Claribel Byrnes MD 06/16/2018 4:27 | | | PM | | + + + + + | Procedure Note | + + | Service Account, Radiant Res In Interface - 06/16/2018 4:44 PM PDT EXAM: [place] CHEST 1 | | VIEW HISTORY: PICC [...] | | | correct patient, procedure, equipment, student support services director and site/side | | | marked as [...] vein. Catheter lot | | | number: [id number] with a length of 55 cm was [...] procedure note. | | + + + CBC AND AUTO DIFF (06/15/2018 7:04 AM)Only the most recent of 2 results within the time ajay espinal is included. + + + + + | Component | Value | Ref Range | Performed At | + + + + + | WHITE CELL COUNT | 10.00 | 3.50 - 10.80 K/cu mm | [facility] | | | | | SERVICES, CORE | + + + + + | RED CELL COUNT | 3.10 (L) | 4.50 - 6.00 M/cu mm | [facility] | | | | | SERVICES, CORE | + + + + + | HEMOGLOBIN | 9.5 (L) | 13.5 - 17.5 g/dL | [facility] | | | | | SERVICES, CORE | + + + + + | HEMATOCRIT | 28.8 (L) | 41.0 - 53.0 % | [facility] | | | | | SERVICES, [...] (H) | 35.1 - 46.3 fL | [facility] | | | | | SERVICES, CORE | + + + + + | PLATELET COUNT | 216 | 150 - 400 K/cu mm | [facility] | | | | | SERVICES, CORE | + + + + + | MPV | 9.4 (L) | 9.7 - 12.3 fL | [facility] | | | | | SERVICES, [...] (L) | 1.0 - 3.0 % | [facility] | | | | | SERVICES, CORE | + + + + + | BASO % | 0.2 | 0.0 - 2.0 % | [facility] | | | | | SERVICES, CORE | + + + + + | IG% | 0.5Comment: Increased | 0.0 - 1.0 % | [facility] | | | immature granulocytes | [...] | 0.00 - 0.10 K/cu mm | [facility] | | | | | SERVICES, CORE | + + + + + | IG# | 0.05 | 0.00 - 0.10 K/cu mm | [facility] | | | | [...] | + + + + + | [facility] | [address] | [place] [address] | | | SERVICES, CORE | [address] [...] + + | [facility] | [address] | [place] [address] | | | KAREEM FINCH | [address] [...] [facility] | [address] | [place] [address] | | | KAREEM FINCH | [address] | | | + + + + + UREA NITROGEN, URINE (06/15/2018 6:49 AM) + +--------+ + + | Component | Value | Ref Range | Performed At | + +--------+ + + | UREA NITRO CONC UR | 743 | mg/dL | [facility] | | | | | STEF CORE | + +--------+ + + | URINE INTERVAL | Random | | [facility] | | | | | STEF, CORE | + +--------+ + + | [...] + + | [facility] | [address] | [place] [address] | | | SERVICESKAREEM | [address] | | | + [...] | + + + + + | [facility] | [address] | [place] [address] | | | SERVICES, CORE | [address] | | | + + + + + CARDIOLOGY (06/15/2018)Only the most recent of 2 results within the time period is included . + + + | Narrative | Performed At | + + + | | | + + + VANCOMYCIN, TROUGH (06/14/2018 6:00 PM) + +-------+ + + | Component | Value | Ref Range | Performed At | + +-------+ + + | VANCOMYCIN, TROUGH | 12.9 | 10.0 - 20.0 ug/mL | [facility] | | | | | SERVICES, [...] is appropriate. | LABORATORY | | Page [phone] or [phone] with questions. Thank you. | KAREEM FINCH | + + + + + + + + | Performing | Address | City/State/Zipcode | Phone Number | | Organization | | | | + + + + + | [facility] | [address] | [place] [address] | | | KAREEM FINCH | [address] | | | + + + + + CBC (HEMOGRAM) ONLY (06/14/2018 5:24 AM)Only the most recent of 3 results within the time period is included. + + + + + | Component | Value | Ref Range | Performed At | + + + + + | WHITE CELL COUNT | 12.05 (H) | 3.50 - 10.80 K/cu mm | [facility] | | | | | SERVICES CORE | + + + + + | RED CELL COUNT | 3.23 (L) | 4.50 - 6.00 M/cu mm | [facility] | | | | | SERVICES, [...] (L) | 9.7 - 12.3 fL | [facility] | | | | | SERVICES, CORE | + + + + + | NRBC% | 0.0 | 0.0 - 0.3 % | [facility] | | | | | SERVICES, CORE | + + + + + | NRBC# | 0.00 | 0.00 - 0.02 K/cu mm | [facility] | | | | | SERVICES, [...] [facility] | [address] | [place] [address] | | | KAREEM FINCH | [address] | | | + + + + + COMPLETE METABOLIC SET (NA,K,CL,CO2,BUN,CREAT,GLUC,CA,AST,ALT,BILI TOTAL,ALK PHOS,ALB,PROT TOTAL) (06/14/2018 5:24 AM)Only the most recent of 5 results within the time period is incl uded. + + + + + | Component [...] >60 mL/min | [facility] | | [facility] | | | SERVICES, CORE | + + + + + | EGFR NON | 31 (L) | >60 mL/min | [facility] | | -[facility] | | | SERVICES, CORE | + [...] + + | [facility] | [address] | [place] [address] | | | SERVICES, CORE | [address] [...] + | ECG IMPRESSION | Borderline prolonged [place] | | [facility] | | [...] + + + + + | [facility] | [address] | [place], [place] | | | CARDIOLOGY | [address] | [address] | | + + + + + MAGNESIUM, PLASMA (06/12/2018 10:24 PM) + +-------+ + + | Component | Value | Ref Range | Performed At | + +-------+ + + | MAGNESIUM,PLASMA | 1.8 | 1.6 - 2.6 mg/dL | [facility] | | | | | SERVICES, [...] | + + + + + | [facility] | [address] | [place] [address] | | | SERVICES, CORE | [address] | | | + + + + + CONFIRMATORY ABO/RH (06/12/2018 10:23 PM) + + + + + | Component | Value | Ref Range | Performed At | + + + + + | ABO Group | A | | [facility] | | | | | SERVICES, [...] [facility] | [address] | [place] [address] | | | SERVICES, | [address] | | | | TRANSFUSION MEDICINE | | | | + + + + + ANTIBODY SCREEN (06/12/2018 10:23 PM) + + + + + | Component | Value | Ref Range | Performed At | + + + + + | Antibody Screen | Negative | | [facility] | | | | | SERVICES, [...] | + + + + + | [facility] | [address] | [place] [address] | | | SERVICES, | [address] [...] | + + + + + | [facility] | [address] | [place] [address] | | | SERVICES, | [address] | | | | TRANSFUSION MEDICINE | | | | + + + + + PROCEDURE NOTE (06/12/2018 10:09 PM)PHOSPHORUS, PLASMA (06/12/2018 4:27 PM) + +-------+ + + | Component | Value | Ref Range | Performed At | + +-------+ + + | PHOSPHORUS, PLASMA | 3.7 | 2.4 - 4.7 mg/dL | [facility] | | (LAB) | | | SERVICES, CORE | + +-------+ + + + + | Specimen | + + | Blood - Blood | + + + + + + + | Performing | Address | City/State/Zipcode | Phone Number | | Organization | | | | + + + + + | [facility] | [address] | [place] [address] | | | SERVICES, CORE | [address] | | | + + + + + PROCEDURE NOTE (06/12/2018 2:57 PM) + + + | Narrative | Performed At | + + + | Sandoval Hyde MD 06/17/2018 2:15 PM Date of Service: | | | 08/01/2015 Attending Surgeon: Sandoval Hyde MD | | | Electrical Lineworker(s): mesfin thompson MD Preoperative Diagnosis: 1. 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 Postoperative Diagnosis: | | | same Procedures Performed: 1. Right knee arthrotomy with | | | drainage for infection and polyethylene exchange 2. Application | | | TINO disposible negative pressure wound therapy dressing right knee | | | [id number] Anesthesia: General endotracheal anesthesia. | | | Implants: excahgned marialuisa triathalon poly size 15, 13mm EBL: 50 | | | Complications: None Specimens: 6 cultures, 1 path | | | Indication For Procedure: Solo Alves was transferred to [facility] for | | | sepsis after previosuly [...] | | | flexed and a new marialuisa triathalon CR poly, size 5 with 13mm [...] risk of postop hematoma and drainage a TION disopsible | | | negative pressure dressing [...] | | | Sandoval Hyde MD, MPH Evp, Dept. of Orthopaedics | | | [address] | | | [facility] [place] [address] | | | [email or web address] | | + + + CULTURE, TISSUE-PROSTHETIC JOINT INFECTION AER AND MARIELOS (06/12/2018 1:54 PM)Only the most r ecent of 5 results within the time period is included. + + + + + | Component [...] | + + + + + | [facility] - | [address] | [place] [address] | | | [place] | | | | + + + + + SURGICAL PATHOLOGY (06/12/2018 1:53 PM) + + + + + | Component | Value | Ref Range | Performed At | + + + + + | Clinical History | RIGHT KNEE PROSTHETIC | | [facility] | | | JOINT INFECTION | | OF PATHOLOGY | + + + + + | Final Pathologic | A. Soft tissue, right | | [facility] | | Diagnosis | knee, biopsy: [...] | Received are 2 specimens | | [facility] | | | fresh in containers | | OF PATHOLOGY | | | labeled with the | | | | | patient's name (initials | | | | | GR) and medical record | | | | | number [id number].A. Knee, | | | | | right [...] | ANCILLARY | Analyte specific | | [facility] | | INFORMATION | reagents are [...] | | | | | determined by [facility] | | | | | laboratories. It [...] | + + + + + | [facility] | [address] | [place] [address] | | | PATHOLOGY | [address] | | | + + + + + ANE ART LINE (06/12/2018 1:52 PM) + + + | Narrative | Performed At | + + + | Addie Page CRNA 06/12/2018 1:57 PM Procedure ART [...] by AGUSTIN VELEZ Name: | | | ADDIE PAGE Performed by Laureen GRAHAM. | | + + + ANE LMA (06/12/2018 1:48 PM) + + + | Narrative | Performed At | + + + | Addie Page CRNA 06/12/2018 1:52 PM Procedure | [...] Laureen GRAHAM. | | + + + CULTURE, BODY FLUID (06/12/2018 [...] | + + + + + | [facility] - | [address] | [place] [address] | | | [place] | | | | + + + + + CULTURE, BLOOD BACTI & YEAST [facility] (06/11/2018 10:29 PM)Only the most recent of 2 results wi thin the time period is included. + + + + + | Component | Value | Ref Range | Performed At | + + + + + | CULTURE RESULT | Final Report:No Bacteria | | [facility] | | | or Yeast isolated [...] | + + + + + | [facility] | [address] | [place] [address] | | | STEF, KAREEM | [address] [...] | | | + +---------+ + + RAINBOW HOLD TUBE - RED TOP (06/11/2018 6:12 PM) + + | Specimen | + + | Blood | + + + + + + + | Performing | Address | City/State/Zipcode | Phone Number | | Organization | | | | + + + + + | [facility] | [address] | [place] [address] | | | KAREEM FINCH | [address] [...] | + + + + + | [facility] | [address] | [place] [address] | | | SERVICES, CORE | [address] | | | + + + + + BLOOD BANK HOLD TUBE - DON T PROCESS (06/11/2018 6:12 PM) + + + + + | Component | Value | Ref Range | Performed At | + + + + + | SPECIMEN COLLECTED, | Sample received with | | [facility] | | HELD | adeq label/volume [...] [facility] | [address] | [place] [address] | | | SERVICES, | [address] | | | | TRANSFUSION MEDICINE | | | | + + + + + C-REACTIVE PROTEIN (06/11/2018 6:12 PM) + + + + + | Component | Value | Ref Range | Performed At | + + + + + | C-REACTIVE PROTEIN | 143.0 (H) | <10.0 mg/L | [facility] | | | | | SERVICES, CORE | + + + + + + + | Specimen | + + | Blood - Blood | + + + + + | Narrative | Performed At | + + + | New method, new reference range and new reporting units as of | [facility] | | 03/30/2014. | LABORATORY | | | SERVICESKAREEM | + + + + + + + + | Performing | Address | City/State/Zipcode | Phone Number | | Organization | | | | + + + + + | [facility] | [address] | [place] [address] | | | SERVICES, KAREEM | [address] | | | + + + + + APTT (ACT. PART. THROMBO TIME) (06/11/2018 6:12 PM) + + + + + | Component | Value | Ref Range | Performed At | + + + + + | APTT | 36.5 (H) | 26.0 - 36.0 seconds | [facility] | | | | | SERVICES, [...] + + | [facility] | [address] | [place] [address] | | | KAREEM FINCH | [address] [...] | + + + + + | [facility] | [address] | [place] [address] | | | SERVICES, CORE | [address] | | | + + + + + ED INFORMATION EXCHANGE (06/11/2018 6:04 PM) + + + | Narrative | Performed At | + + + | [id number] This patient has registered at the [place] | [facility] | | [facility] Emergency Department For more | MEDICAL | | information visit: | TECH[employer]OLOGIES | | [email or web address] | | | 35ffec Security Events No [...] | | facilities for additional information. 2018 [facility] | | | [employer]. [place], [place] - | | | | | + + + + + | Procedure Note | + + | Service Account, Rtf Results Inbound - 06/11/2018 6:06 PM PDT Formatting of this | | note may be different from the original.[id number] patient has | | registered at the [facility] Emergency Department For more | | information visit: | | [email or web address] Security | | EventsNo recent Security Events currently on fileED Care GuidelinesThere are currently | | no ED Care Guidelines in [place]ANI[place] for this patient. Please check your facility's medical | | records system.Recent Emergency Department Visit SummaryAdmit Date Facility [facility] State | | Type Major Type Diagnoses or Chief Complaint Jun 11, 2018 [facility] | | [facility]. [place] Emergency Emergency 10,800. REF Recent Inpatient Visit | | SummaryNo recorded inpatient visits. E.D. Visit Count (12 mo.)Facility Visits [place] | | [facility] 1 Total 1 Note: Visits [...] | aforementioned facilities for additional information. 2018 [employer] | | [employer]. - [place], [place] - [email or web address] | |Facility Visits | |[facility] [...] aforementioned facilities for additional information. | |2018 [facility] - [place], [place] - [email or web address] | + + + + + + + | Performing | Address | City/State/Zipcode | Phone Number | | Organization | | | | + + + + + | [facility] | [address], | [place], [place] | [phone] | | [employer] | [address] | [address] | | + + + + + from Last 3 Months Insurance + +--------+ +--------+ + + | Payer | Benefi | Subscriber | Type | Phone | Address | | | t Plan | ID | | | | | | / | | | | | | | Group | | | | | + +--------+ +--------+ + + | MEDICARE | MEDICA | xxxxxxxxxxx | Medica | [phone]- | [address] | | | RE A & | | re | [phone] | [place] [address] | | | B | | | | | + +--------+ +--------+ + + | COMMERCIAL GROUP | COMMER | xxxxxxxxxx | Indemn | | | | | CIAL | | ity | | | | | GROUP | | | | | + +--------+ +--------+ + + + +--------+ +--------+ + + | Guarantor Name | Accoun | Relation to | Date | Phone | Billing Address | | | t Type | Patient | of | | | | | | | | | | + +--------+ +--------+ + + | JÚNIOR MAS | Person | Self [birth year] Home: | [address] | | | al/Fam | | 1940 | [phone] | [place] [address] | | | afshan | | | [phone] | | + +--------+ +--------+ + +
--- OUTSIDE RECORDS SUMMARY | ~2018-07-13 | XMS | Encounter Summary ---
Demographics + + + | Address | [address] | | | [place] [address] | + + + | Home Phone | | + + + | Preferred Language | Unknown | + + + | Marital Status | Unknown | + + + | Synagogue Affiliation | PRO | + + + [...] Team Providers + +------+ + | Care Bolter Helper Name | Role | Phone | [...] | Floor [address] | [facility] [address] | orders) | | | | [facility] | [place], [place] | | | | | Mailcode: [id number] | [address] | | | | | [facility] | | | | | | [place], [place] | | | | | | [address] | | | | | | [phone] | | | +--------+ + + + [...] Rd | | | | | | [place], [place] | | | | | | [address] | | | | | | [phone] | | | | | | | | +--------+ + + + + | 07/15/ | Office | Infectious Disease | Abril Shields, | | | 2017 | Visit | | MD Roslyn Jerome | | | | | | [address] | | | | | | [place], [place] | | | | | | [address] | | | | | | [phone] | | | | | | | | +--------+ + + + + as of this encounter Visit Diagnoses + + | Diagnosis | + + | Infection associated with internal right knee prosthesis, subsequent encounter | + +"
--- OUTSIDE RECORDS SUMMARY | ~2018-07-13 | XMS | Encounter Summary ---
Demographics + + + | Address | [address] | | | [place] [address] | + + + | Home Phone [...] Team Providers + +------+ + | Care Grooving Lathe Tender Name | Role | Phone | + +------+ + | Gilberto Estrada MD | PCP | | + +------+ + Encounter Details +--------+ + + + + | Date | Type | Department | Care Team | Description | +--------+ + + + + | 06/12/ | Procedure | 6A Intra Op [facility] | | | | 2017 | Pass | [facility] | | | | | | Admitting Desk | | | | | | Located on the 9th | | | | | | floor [address] [facility] | | | | | | [facility] | | | | | | [place], [place] | | | | | | [address] | | | +--------+ + + + [...] Rd | | | | | | [facility] [place] | | | | | | [address] | | | | | | [phone] | | | | | | | | +--------+ + + + + | 07/15/ | Office | Infectious Disease | Abril Shields, | | | 2017 | Visit | | MD Roslyn Jerome | | | | | | [address] | | | | | | [facility] [place] | | | | | | [address] | | | | | | [phone] | | | | | | | | +--------+ + + + + as of this encounter Visit Diagnoses Not on filein this encounter"
--- OUTSIDE RECORDS SUMMARY | ~2018-07-13 | XMS | Encounter Summary ---
Demographics + + + | Address | [address] | | | [place] [address] | + + + | Home Phone [...] + +------+ + | Care Professor Of Business Administration Name | Role | Phone | + +------+ + | Gilberto Estrada MD | PCP | | + +------+ + Encounter Details +--------+ + + + + | Date | Type | Department | Care Team | Description | +--------+ + + + + | 06/11/ | Emergency | [facility] | Sandoval Hyde, | | | 2017 | | Department [address] | [address] | | | | | [address] | [facility] | | | | | [facility] | [place], [place] | | | | | [place] [address] | [address] | | | | | [phone] | [phone] | | | | | | | [...] by | | | | | | [id number]-tep | mouth once daily. | | | [...] mouth. | | | | | | 0-lwo-zda-fish oil | | | | | | [...] Rd | | | | | | [place] | | | | | | [address] | | | | | | [phone] | | | | | | | | +--------+ + + + + | 07/15/ | Office | Infectious Disease | Abril Shields, | | | 2017 | Visit | | MD Roslyn Jerome | | | | | | [address] | | | | | | [place], [place] | | | | | | [address] | | | | | | [phone] | | | | | | | [...]
--- OUTSIDE RECORDS SUMMARY | ~2018-07-13 | XMS | Encounter Summary ---
Demographics + + + | Address | [address] | | | [place] [address] | + + + | Home Phone | | + + + | Preferred Language | Unknown | + + + | Marital Status | | + + + | Rastafari Affiliation | 1077 | + + + | Race | Unknown | + + + | Ethnic Group | Unknown | + + + Author + + + | Author | [facility] [employer] | + + + | Organization | [facility] | + + + | Address | Unknown | + + + | Phone | Unavailable | + + + Support + + +---------+ + | Name | Relationship | Address | Phone | + + +---------+ + | Beth Mas | ECON | Unknown | | + + +---------+ + Care Team Providers + +------+ + | Care Receiving Coordinator Name | Role | Phone | [...] | | | | | [place] [address] | | | | | | [phone] | | | +--------+ + + + [...] [address] | | | | | | [place] [address] | | | | | | [phone] | | | | | | | [...] of | | | | | insulin ([facility]) CKD | | | | | (chronic kidney | | | | | disease), stage III | | | | | Secondary | | | | | hyperparathyroidism | | | | | ([facility]) | | + +--------+ + + [...] | hyperparathyroidism | | | | | ([facility]) | | + +--------+ + + [...]
--- OUTSIDE RECORDS SUMMARY | ~2018-07-13 | XMS | Encounter Summary ---
Demographics + + + | Address | [address] | | | [place] [address] | + + + | Home Phone [...] Team Providers + +------+ + | Care Hired Help Name | Role | Phone | + +------+ + | Gilberto Estrada MD | PCP | | + +------+ + Encounter Details +--------+---------+ + + + | Date | Type | Department | Care Team | Description | +--------+---------+ + + + | 06/12/ | Surgery | 6A Intra Op [facility] | Sandoval Hyde, | RIGHT KNEE I&D, | | 2017 | | [facility] | [address] | POSSIBLE COMPONENT | | | | Admitting Desk | [facility] | EXCHANGE, POSSIBLE | | | | Located on the | [facility] [place] | REVISION | | | | floor [address] [facility] | [address] | | | | | [facility] | [phone] | | | | | [place], [place] | | | | | | [address] | | | +--------+---------+ + + + [...] by | | | | | | no.[id number]-lrm-fzc | mouth once daily. | | | [...] mouth. | | | | | | 5-iox-pnv-fish oil | | | | | | [...] Rd | | | | | | [place], [place] | | | | | | [address] | | | | | | [phone] | | | | | | | | +--------+ + + + + | 07/15/ | Office | Infectious Disease | Abril Shields, | | | 2017 | Visit | | MD Roslyn Jerome | | | | | | [address] | | | | | | [place], [place] | | | | | | [address] | | | | | | [phone] | | | | | | | [...]
--- OUTSIDE RECORDS SUMMARY | ~2018-07-13 | XMS | Encounter Summary ---
Demographics + + + | Address | [address] | | | [place] [address] | + + + | Home Phone | | + + + | Preferred Language | Unknown | + + + | Marital Status | | + + + | Lutheran Affiliation | 1077 | + + + | Race | Unknown | + + + | Ethnic Group | Unknown | + + + Author + + + | Author | [facility] [employer] | + + + | Organization | [facility] | + + + | Address | Unknown | + + + | Phone | Unavailable | + + + Support + + +---------+ + | Name | Relationship | Address | Phone | + + +---------+ + | Beth Mas | ECON | Unknown | | + + +---------+ + Care Team Providers + +------+ + | Care Circulation Manager Name | Role | Phone | [...] disease), stage III | | | | [facility] [address] | [address] [place], [place] | (Primary Dx); | | | | [place] [address] | [address] | Bilateral leg edema; | | | | [phone] | | Type 2 diabetes | | [...] Magnesium, CBC, intact PTH, urinalysis, Urine total stmdkma-hx-ybmhu inine ratio before he comes back in [...] 2 (two) times daily as neede d. [place]-3 Fatty Acids (FISH OIL) 1200 MG CAPS [...] HCT 38.5 (L) 05/20/2018 LABPROT 0.163 05/20/2018 [id number] 32 01/12/2018 Assessment: Mr. Mas is a [...] Magnesium, CBC, intact PTH, urinalysis, Urine total pcqfern-dd-trkbt inine ratio before he comes back in [...] [address] | | | | | | [place] [address] | | | | | | [phone] | | | | | | | [...]
--- OUTSIDE RECORDS SUMMARY | ~2018-07-13 | XMS | Encounter Summary ---
Demographics + + + | Address | [address] | | | [place] [address] | + + + | Home Phone [...] Team Providers + +------+ + | Care Brooch Maker Novelty Name | Role | Phone | + +------+ + | Gilberto Estrada MD | PCP | | + +------+ + Encounter Details +--------+ + + + + | Date | Type | Department | Care Team | Description | +--------+ + + + + | 06/11/ | Emergency | [facility] Emergency | Sandoval Hyde, | | | 2017 | | Department [address] | [address] | | | | | [address] | [facility] | | | | | [facility] | [place], [place] | | | | | [place] [address] | [address] | | | | | [phone] | [phone] | | | | | | | [...] by | | | | | | no.[id number]-pai | mouth once daily. | | | [...] mouth. | | | | | | 2-pje-lkz-fish oil | | | | | | [...] Rd | | | | | | [place] | | | | | | [address] | | | | | | [phone] | | | | | | | | +--------+ + + + + | 07/15/ | Office | Infectious Disease | Abril Shields, | | | 2017 | Visit | | MD Roslyn Jerome | | | | | | [address] | | | | | | [place], [place] | | | | | | [address] | | | | | | [phone] | | | | | | | [...]
--- OUTSIDE RECORDS SUMMARY | ~2018-07-13 | XMS | Encounter Summary ---
Demographics + + + | Address | [address] | | | [place] [address] | + + + | Home Phone | | + + + | Preferred Language | Unknown | + + + | Marital Status | | + + + | Muslim Affiliation | 1077 | + + + | Race | Unknown | + + + | Ethnic Group | Unknown | + + + Author + + + | Author | [facility] [employer] | + + + | Organization | [facility] | + + + | Address | Unknown | + + + | Phone | Unavailable | + + + Support + + +---------+ + | Name | Relationship | Address | Phone | + + +---------+ + | Beth Mas | ECON | Unknown | | + + +---------+ + Care Team Providers + +------+ + | Care Track Layer Name | Role | Phone | + [...] Other (Blood | | 2017 | | [address] | | Pressure Check) | | | | [address] | | | | | | [place] [address] | | | | | | [phone] | | | +--------+ + + + [...] | | | | | [place] [address] | | | | | | [phone] | | | | | | | | +--------+ + + + + | 10/21/ | Documentati | Cardiology | | | | 2017 | on Only | | | | +--------+ + + + + as of this encounter Visit Diagnoses Not on filein this encounter"
--- OUTSIDE RECORDS SUMMARY | ~2018-07-13 | XMS | Encounter Summary ---
Demographics + + + | Address | [address] | | | [place] [address] | + + + | Home Phone [...] Team Providers + +------+ + | Care Computing Tutor Name | Role | Phone | + [...] | | | | | [place], | | | | | | [place] [address] | | | +--------+--------+ + + + [...] Rd | | | | | | [place], [place] | | | | | | [address] | | | | | | [phone] | | | | | | | | +--------+ + + + + | 07/15/ | Office | Infectious Disease | Abril Shields, | | | 2017 | Visit | | [address] | | | | | | [address] | | | | | | [place] | | | | | | [address] | | | | | | [phone] | | | | | | | | +--------+ + + + + as of this encounter Visit Diagnoses Not on filein this encounter"
--- OUTSIDE RECORDS SUMMARY | ~2018-07-13 | XMS | Encounter Summary ---
Demographics + + + | Address | [address] | | | [place] [address] | + + + | Home Phone [...] Team Providers + +------+ + | Care Showroom Executive Director Name | Role | Phone | [...] | Floor [address] | [facility] | disease | | | | [facility] | [place], [place] | | | | | Mailcode: [id number] | [address] | | | | | [facility] | | | | | | [place], [place] | | | | | | [address] | | | | | | [phone] | | | +--------+ + + + [...] Rd | | | | | | [place], [place] | | | | | | [address] | | | | | | [phone] | | | | | | | | +--------+ + + + + | 07/15/ | Office | Infectious Disease | Abril Shields, | | | 2017 | Visit | | MD Roslyn Jerome | | | | | | [address] | | | | | | [place], [place] | | | | | | [address] | | | | | | [phone] | | | | | | | | +--------+ + + + + as of this encounter Visit Diagnoses Not on filein this encounter"
--- OUTSIDE RECORDS SUMMARY | ~2018-07-13 | XMS | Encounter Summary ---
Demographics + + + | Address | [address] | | | [place] [address] | + + + | Home Phone [...] Team Providers + +------+ + | Care Er Medical Technician Name | Role | Phone | [...] | Diseases at [facility] | [address] [facility] | Result Abnormal | | | | Floor [address] | [facility] | | | | | [facility] | [place], [place] | | | | | Mailcode: [id number] | [address] | | | | | [facility] [place] | [phone] | | | | | [place], [place] | | | | | | [address] | | | | | | [phone] | | | +--------+ + + + [...] Rd | | | | | | [place] | | | | | | [address] | | | | | | [phone] | | | | | | | | +--------+ + + + + | 07/15/ | Office | Infectious Disease | Abril Shields, | | | 2017 | Visit | | MD Roslyn Jerome | | | | | | [address] | | | | | | [place] | | | | | | [address] | | | | | | [phone] | | | | | | | | +--------+ + + + + as of this encounter Visit Diagnoses Not on filein this encounter"
--- OUTSIDE RECORDS SUMMARY | ~2018-07-13 | XMS | Encounter Summary ---
Demographics + + + | Address | [address] | | | [place] [address] | + + + | Home Phone | | + + + | Preferred Language | Unknown | + + + | Marital Status | | + + + | Tenriism Affiliation | 1077 | + + + | Race | Unknown | + + + | Ethnic Group | Unknown | + + + Author + + + | Author | [facility] [employer] | + + + | Organization | [facility] [employer] [facility] | + + + | Address | Unknown | + + + | Phone | Unavailable | + + + Support + + +---------+ + | Name | Relationship | Address | Phone | + + +---------+ + | Beth Mas | ECON | Unknown | | + + +---------+ + Care Team Providers + +------+ + | Care Observer Helper Name | Role | Phone | [...] Requisition | [address] | I, Roll Changer | hypertension with | | | | [place] [address] | | goal blood pressure | | | | [phone] | | less than 130/85; | | [...] [address] | | | | | | [place] [address] | | | | | | [phone] | | | | | | | [...] + + + | [facility] | [address] | [place] [address] | [phone] | | LABORATORY | [address] | | [...] | + + + + + | [facility] | [address] | [place] [address] | [phone] | | LABORATORY | [address]vd[address] | | [...] + + + | [facility] | [address] | [place] [address] | [phone] | | LABORATORY | [address]vd[address] | | [...] + + + + + | Specific [place], [place] | 1.008 | 1.002 - 1.030 [...] + + + | [facility] | [address] | [place] [address] | [phone] | | LABORATORY | [address]vd[address] | | [...] + + + | [facility] | [address] | [place] [address] | [phone] | | LABORATORY | Blvd[address] | | [...] | [address] | [place] [address] | [phone] | | LABORATORY | Blvd. | | [...] + + + | [facility] | [address] | [place] [address] | [phone] | | LABORATORY | Blvd[address] | | [...] (H) | 0.70 - 1.30 mg/dL | [facility] | | | | | LABORATORY | + + + + + | CALCIUM | 9.4 | 8.5 - 10.5 mg/dL | [facility] | | | | | LABORATORY | + + + + + | Albumin | 3.6 | 3.3 - 4.8 g/dL | [facility] | | | | | LABORATORY | + + + + + | PHOSPHORUS | 2.8 | 2.3 - 4.8 mg/dL | [facility] | | | | | LABORATORY | + + + + + | EGFR | 37 (L)Comment: GFR <60: | >60 mL/min/1.73_m2 | [employer] | | | CHRONIC KIDNEY DISEASE, | [...] | | | | using the MDRD IDSC | | | | | traceable equation. | | | + + + + + + + | Specimen | + + | Blood | + + + + + + + | Performing | Address | City/State/Zipcode | Phone Number | | Organization | | | | + + + + + | [facility] | [address] | [place] [address] | [phone] | | LABORATORY | [place] | | [...]
--- OUTSIDE RECORDS SUMMARY | ~2018-07-13 | XMS | Encounter Summary ---
Demographics + + + | Address | [address] | | | [place] [address] | + + + | Home Phone [...] Team Providers + +------+ + | Care Efficiency Analyst Name | Role | Phone | [...] | | | | | associated | [address] | | | | | | with | [address] | | | | | | internal | Mary Alexis | | | | | | right knee | [place], [place] | | | | | | prosthesis, | [address] | | | | | | subsequent | Phone: | | | | | | encounter | [phone] | | | | | | Procedures | Fax: | | | | | | OCCUPATIONAL | [phone] | | | | | | THERAPY [...] | | | | | associated | [address] | | | | | | with | [address] | | | | | | internal | Mary Alexis | | | | | | right knee | [place], [place] | | | | | | prosthesis, | [address] | | | | | | subsequent | Phone: | | | | | | encounter | [phone] | | | | | | Procedures | Fax: | | | | | | PHYSICAL | [phone] | | | | | | THERAPY [...] 2018 - | Encounter | [address] | [address] | | | | | [place] | [address] | | | 06/17/ | | [place] [address] | [place], [place] | | | 2018 | | [phone] | [address] | | | | | | [phone] | | | | | | | | | | | | Edyta Demarco MD | | | | | | [address] | | | | | | [address] | | | | | | [facility], [place] | | | | | | [address] | | | | | | [phone] | | | | | | | | | | | | Dean Ugarte MD | | | | | | [address] | | | | | | [address] 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 He will continue PT/OT at [facility] swing bed unit. Per orthopedic [...] I-CAPS 280-10-2 mg Cap Generic drug: antiox.mv no.[id number]-ajh-rzn Take 1 capsule by mouth once daily. [...] (Non-Steroidal Anti-Inflammatory Drug) Renal Failure Avoid per Explosives Mixer Operator recommendations Sulfa (Sulfonamide Antibiotics) Rash Vital [...] information for after-discharge care Discharge Destination IP [facility] . Specialty: Acute Care Hospital Contact information [address] [place] [address] [place] Location: [facility] swing bed unit Appointments: Dr. Hyde on 07/23/18 at 10:40am. The discharge note was forwarded to the PCP for review. Discharging Physician: Ann Mahmood MD Suggested CPT: 11550 Discharge Management > 30 minute I spent more than 35 minutes afza-bw-wpbl with the patient of which 70% was [...] by | | | | | | no.[id number]-xzn | mouth once daily. | | | [...] mouth. | | | | | | 3-kzq-kri-fish oil | | | | | | [...] negative pressure wound therapy dressing right knee [id number] Subjective: Doing ok overall. No CP/SOB. Tolerating [...] Plan to DC today to SNF in [place]. SNF can pull sutures at 2 weeks from operat kai date (June 27 is 2 weeks post op). Plan to return to Dr. Hyde' clinic 6 weeks an d also have ID clinic visit on that day. Appreciate [facility] and ID help in managing [...] that time. 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 No CP/SOB. Tolerating [...] to home as t ransporting back to [place] may present the patient and family undo hardship. 6. Dressings/Drains: Pulled yesterday? 7. Dispo/Discharge: Anticipate discharge to SNF in next 1-3 days if all criteria met. 8. Follow-up: Please call the clinic to make a follow up appointment in approximately 2 wee ks with ORTHO TRAUMA & FRACTURE, . AP and lateral of R knee at that time. Elias Soriano MD [facility] Department of Orthopaedics and Rehabilitation PGY-1 Pager [phone] Tanvir Ayala - 06/16/2018 8:20 AM PDTFormatting [...] three and a half hours away from [place]. At this time, we are unsur e of his ability to follow up with an OPAT clinic or if there is a provider near [place], where the patient resides. 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 This patient was staffed [facility] Villalobos, who agrees with the above assessment and plan unless otherwise documented. Tanvir Ayala, [facility] P SUBJECTIVE Interval Events: No acute events overnight S: patient reports he is feeling well this morning. States he was able to meet with a case resolution specialist and had decided to go to [...] MD Division of Hospital Medicine [facility] Pager [phone] I spent more than 35 minutes yhoi-vy-xtjb with the patient of which greater than 50% was sp ent counseling the patient or in coordination of care. Sisi Pablo [facility] - 06/15/2018 7:40 AM PDTFormatting of this note may be different from the original. 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 Orthopaedic Procedure(s) & Date(s): 06/13/2018 1. Right knee arthrotomy with drainage for infection and polyethylene exchange 2. Application TINO disposible negative pressure wound therapy dressing right knee [id number] Subjective: Doing ok overall, not too much pain in right knee. Looking forward to getting manager background to home, "My wants to get back [...] to home as t ransporting back to [place] may present the patient and family undo hardship. 6. Dressings/Drains: Continue drain 7. Dispo/Discharge: Anticipate discharge to SNF in next 1-3 days if all criteria met. 8. Follow-up: Please call the clinic to make a follow up appointment in approximately 2 wee mi with ORTHO TRAUMA & FRACTURE, . AP and lateral of R knee at that time. Sisi Pablo, [facility] Orthopaedic Trauma Surgery Pager [phone] Stephan Mercado MD - 06/14/2018 8:59 AM [...] MD Division of Hospital Medicine [facility] Pager [phone] I spent more than 35 minutes hcso-gt-afmk with the patient of which greater than [...] negative pressure wound therapy dressing right knee [id number] Subjective: Pain improving in R knee. Objective: [...] at that time. SEBAS PLEITEZ MD Pager [phone] Stephan Mercado MD - 06/13/2018 9:51 AM [...] MD Division of Hospital Medicine [facility] Pager [phone] I spent more than 35 minutes wmak-xn-xnbu with the patient of which greater than [...] negative pressure wound therapy dressing right knee [id number] Subjective: Painful in R knee today, but [...] at that time. SEBAS PLEITEZ MD Pager [phone] Stephan Mercado MD - 06/12/2018 1:24 PM [...] MD Division of Hospital Medicine [facility] Pager [phone] I spent more than 35 minutes qjyp-cs-ebjj with the patient of which greater than [...] Rd | | | | | | [place], [place] | | | | | | [address] | | | | | | [phone] | | | | | | | | +--------+ + + + + | 07/15/ | Office | Infectious Disease | Abril Shields, | | | 2017 | Visit | | [address] | | | | | | [address] | | | | | | [place], [place] | | | | | | [address] | | | | | | [phone] | | | | | | | [...] | | | | | ([facility]) | | + +--------+ + + [...] | | | | | ([facility]) | | + +--------+ + + [...] | | | | | ([facility]) | | + +--------+ + + [...] | | | | | ([facility]) | | + +--------+ + + [...] [place] | [address] | [place], [place] | | | [place] OF [facility] | [address] | [address] | | | TESTS | | | | + + + + + INR (06/17/2018 3:59 AM) + + + + + | Component | Value | Ref Range | Performed At | + + + + + | INR | 1.78 (H) | 0.90 - 1.20 INR | [facility] | | | | | [...] [facility] | [address] | [place] [address] | | | SERVICES, CORE | [address] [...] LABORATORY | | (LAB) | | | [facility], CORE | + + + + + | EGFR - | 46 (L) | >60 mL/min | [facility] | | [address] | | | STEF, CORE | + + + + + | EGFR NON | 38 (L) | >60 mL/min | [facility] | | -[place] | | | STEF, [facility] | + + + + + | [...] POTASSIUM CMNT | No Hemo | | [facility] | | | | | [...] + + + + | [facility] | [address] | [place] [address] | | | SERVICES, KAREEM | MARY [...] [place] | [address] | [place] | | | [place] POINT OF CARE | [address] | [address] | | | TESTS | | | [...] - [place] | [address] | [place], [place] | | | [place] POINT OF CARE | [address] | [address] | | | TESTS | | | | + + + + + X-RAY PORTABLE CHEST 1 VIEW (06/16/2018 4:29 PM) + + + | Narrative | Performed At | + + + | EXAM: DE CHEST 1 VIEW HISTORY: PICC placement. Prosthetic [...] Interface - 06/16/2018 4:44 PM PDT EXAM: DE CHEST 1 | | VIEW HISTORY: PICC [...] | | | correct patient, procedure, equipment, ict support technicians and site/side | | | marked as [...] vein. Catheter lot | | | number: [id number] with a length of 55 cm was [...] - DARSHANA | [address] | [place], [place] | | | [place] POINT OF CARE | [address] | [address] | | | TESTS | | | | + + + + + INR (06/16/2018 4:23 AM) + + + + + | Component | Value | Ref Range | Performed At | + + + + + | INR | 1.51 (H) | 0.90 - 1.20 INR | [facility] | | | | | [...] [facility] | [address] | [place] [address] | | | SERVICES, CORE | PARK [...] >60 mL/min | [facility] | | [address] | | | STEF, [facility] | + + + + + | EGFR NON | 32 (L) | >60 mL/min | [facility] | | -[place] | | | STEF, CORE | + [...] POTASSIUM CMNT | No Hemo | | [facility] | | | | | SERVICES, CORE | + + + + + + + | Specimen | + + | Blood - Blood | + + + + + | Narrative | Performed At | + + + | GFR is estimated using the MDRD equation recommended by the | [facility] | | National Kidney Disease [...] + + + + | [facility] | [address] | [place] [address] | | | SERVICES, CORE | MARY [...] [place] | [address] | [place] | | | [place] POINT OF CARE | [address] | [address] | | | TESTS | | | [...] [place] | [address] | [place], [place] | | | [place], POINT OF CARE | [address] | [address] | | | TESTS | | | [...] DARSHANA | [address] | [place] | | | [place] [facility] | [address] | [address] | | | TESTS | | | | + + + + + CBC AND AUTO DIFF (06/15/2018 7:04 AM) + + + + + | Component | Value | Ref Range | Performed At | + + + + + | WHITE CELL COUNT | 10.00 | 3.50 - 10.80 K/cu mm | [facility] | | | | | [...] (H) | 35.1 - 46.3 fL | [facility] | | | | | SERVICES, [...] (L) | 1.0 - 3.0 % | [facility] | | | | | SERVICES, CORE | + + + + + | BASO % | 0.2 | 0.0 - 2.0 % | [facility] | | | | | SERVICES, CORE | + + + + + | IG% | 0.5Comment: Increased | 0.0 - 1.0 % | [facility] | | | immature granulocytes | [...] + + + | [facility] | [address] | [place] [address] | | | SERVICES, CORE | MARY [...] >60 mL/min | [facility] | | [place] | | | SERVICES, CORE | + + + + + | EGFR NON | 31 (L) | >60 mL/min | [facility] | | -[place] | | | SERVICES, CORE | + [...] | + + + + + | [facility] | [address] | [place] [address] | | | SERVICES, CORE | [address] | | | + + + + + EOSINOPHILS, URINE (SPOT) (06/15/2018 6:49 AM) + +-------+ + + | Component | Value | Ref Range | Performed At | + +-------+ + + | URINE EOSINOPHILS | <1 | <1 % | [facility] | | | | | SERVICES, CORE | + +-------+ + + + + | Specimen | + + | Urine - Urine | + + + + + + + | Performing | Address | City/State/Zipcode | Phone Number | | Organization | | | | + + + + + | [facility] | [address] | [place] [address] | | | KAREEM FIN[address] | MARY [...] + + + + | [facility] | [address] | [place] [address] | | | SERVICES, CORE | [address] | | | + + + + + CREATININE, URINE (06/15/2018 6:49 AM) + +--------+ + + | Component | Value | Ref Range | Performed At | + +--------+ + + | CREATININE CONC UR | 269.00 | mg/dL | [facility] | | | | | SERVICES, CORE | + +--------+ + + | URINE INTERVAL | Random | | [facility] | | | | | SERVICES, CORE | + +--------+ + + | URINE VOLUME | Spot | | [facility] | | | | | [...] + + + | [facility] | [address] | [place] [address] | | | KAREEM FINCH | MARY [...] [facility] | [address] | [place] [address] | | | KAREEM FINCH | MARY [...] [place] | [address] | [place], [place] | | | [place] POINT OF CARE | [address] | [address] | | | TESTS | | | [...] >60 mL/min | [facility] | | [address] | | | STEF CORE | + + + + + | EGFR NON | 29 (L) | >60 mL/min | [facility] | | -[place] | | | SERVICES, CORE | + [...] (L) | 8.6 - 10.2 mg/dL | [facility] | | (LAB) | | | SERVICES, CORE | + + + + + | ANION GAP | 4 | 4 - 11 mmol/L | [facility] | | | | | SERVICES, CORE | + + + + + | POTASSIUM CMNT | No Hemo | | [facility] | | | | | [...] is appropriate. | LABORATORY | | Page [phone] or [phone] with questions. Thank you. GFR is | [...] | + + + + + | [facility] | [address] | [place] [address] | | | SERVICES, CORE | PARK [...] [facility] | [address] | [place] [address] | | | SERVICES, KAREEM | [address] | | | + + + + + VANCOMYCIN, TROUGH (06/14/2018 6:00 PM) + +-------+ + + | Component | Value | Ref Range | Performed At | + +-------+ + + | VANCOMYCIN, TROUGH | 12.9 | 10.0 - 20.0 ug/mL | [facility] | | | | | [...] is appropriate. | LABORATORY | | Page [phone] or [phone] with questions. Thank you. | KAREEM FINCH | + + + + + + + + | Performing | Address | City/State/Zipcode | Phone Number | | Organization | | | | + + + + + | [facility] | [address] | [place] [address] | | | KAREEM FINCH | MARY [...] + + + | [facility] [place] | [address] | [place] | | | [place] POINT OF CARE | [address] | [address] | | | TESTS | | | [...] D[place] | [address] | [place] | | | [place] [facility] | [address] | [address] | | | TESTS | | | | + + + + + CBC (HEMOGRAM) ONLY (06/14/2018 5:24 AM) + + + + + | Component | Value | Ref Range | Performed At | + + + + + | WHITE CELL COUNT | 12.05 (H) | 3.50 - 10.80 K/cu mm | [facility] | | | | | SERVICES, CORE | + + + + + | RED CELL COUNT | 3.23 (L) | 4.50 - 6.00 M/cu mm | [facility] | | | | | SERVICES, CORE | + + + + + | HEMOGLOBIN | 9.9 (L) | 13.5 - 17.5 g/dL | [facility] | | | | | SERVICES, CORE | + + + + + | HEMATOCRIT | 30.1 (L) | 41.0 - 53.0 % | [facility] | | | | | SERVICES, CORE | + + + + + | MCV | 93.2 | 80.0 - 100.0 fL | [facility] | | | | | SERVICES, CORE | + + + + + | MCHC | 32.9 | 32.0 - 36.0 g/dL | [facility] | | | | | SERVICES, [...] [facility] | [address] | [place] [address] | | | SERVICES, CORE | [address] [...] (H) | 6 - 20 mg/dL | [facility] | | | | | SERVICES, CORE | + + + + + | CREATININE PLASMA | 2.08 (H) | 0.70 - 1.30 mg/dL | [facility] | | (LAB) | | | SERVICES, CORE | + + + + + | EGFR - | 37 (L) | >60 mL/min | [facility] | | [address] | | | STEF, CORE | + + + + + | EGFR NON | 31 (L) | >60 mL/min | [facility] | | -[place] | | | [facility] | + + + + + | [...] AST CMNT | No Hemo | | [facility] | | | | | SERVICES, CORE | + + + + + + + | Specimen | + + | Blood - Blood | + + + + + | Narrative | Performed At | + + + | GFR is estimated using the MDRD equation recommended by the | [facility] | | National Kidney Disease [...] + + + + | [facility] | [address] | [place] [address] | | | SERVICES, KAREEM | MARY [...] [place] | [address] | [place], [place] | | | OP[place]IA LOZADA OF CARE | [address] | [address] | | | TESTS | | | [...] [place] | [address] | [place] | | | ROSARIO LOZADA | [facility] | [address] | | | TESTS | | | [...] - DARSHANA | [address] | [place], [place] | | | [place] POINT OF CARE | [address] | [address] | | | TESTS | | | [...] + | ECG IMPRESSION | Borderline prolonged DE | | [facility] | | [...] DEPT OF | [address] | [place], [place] | | | CARDIOLOGY | [address] | [address] | | + + + + + [...] DARSHANA | [address] | [place], [place] | | | [place] POINT OF CARE | [address] | [address] | | | TESTS | | | [...] 92.6 | 80.0 - 100.0 fL | [facility] | | | | | SERVICES, [...] 9.9 | 9.7 - 12.3 fL | [facility] | | | | | [...] [facility] | [address] | [place] [address] | | | KAREEM FINCH | MARY [...] >60 mL/min | [facility] | | [address] | | | SERVICES, CORE | + + + + + | EGFR NON | 40 (L) | >60 mL/min | [facility] | | -[place] | | | SERVICES, CORE | + [...] LABORATORY | | CORRECTED) | | | [facility], CORE | + + + + [...] | + + + + + | [facility] | [address] | [place] [address] | | | SERVICES, CORE | [address] | | | + + + + + MAGNESIUM, PLASMA (06/12/2018 10:24 PM) + +-------+ + + | Component | Value | Ref Range | Performed At | + +-------+ + + | MAGNESIUM,PLASMA | 1.8 | 1.6 - 2.6 mg/dL | [facility] | | | | | KAREEM [...] [facility] | [address] | [place] [address] | | | SERVICES, KAREEM | MARY [...] >60 mL/min | [facility] | | [address] | | | SERVICES, CORE | + + + + + | EGFR NON | 43 (L) | >60 mL/min | [facility] | | -[place] | | | SERVICES, CORE | + [...] LABORATORY | | CORRECTED) | | | [facility] | + + + + + | [...] | + + + + + | [facility] | [address] | [place] [address] | | | SERVICES, CORE | [address] | | | + + + + + CONFIRMATORY ABO/RH (06/12/2018 10:23 PM) + + + + + | Component | Value | Ref Range | Performed At | + + + + + | [facility] Group | A | | [facility] | | | | | SERVICES, [...] [facility] | [address] | [place] [address] | | | SERVICES, | [address] [...] [facility] | [address] | [place] [address] | | | SERVICES, | [address] | | | | TRANSFUSION MEDICINE | | | | + + + + + CBC (HEMOGRAM) ONLY (06/12/2018 10:23 PM) + + + + + | Component | Value | Ref Range | Performed At | + + + + + | WHITE CELL COUNT | 11.67 (H) | 3.50 - 10.80 K/cu mm | [facility] | | | | | SERVICES, [...] [facility] | [address] | [place] [address] | | | SERVICES, CORE | MARY [...] | + + + + + | [facility] | [address] | [place] [address] | | | SERVICES, | [address] | | | | TRANSFUSION MEDICINE | | | | + + + + + INR (06/12/2018 10:23 PM) + + + + + | Component | Value | Ref Range | Performed At | + + + + + | INR | 1.42 (H) | 0.90 - 1.20 INR | [facility] | | | | | [...] + + + + | [facility] | [address] | [place] [address] | | | SERVICES, CORE | MARY [...] [place] | [address] | [place], [place] | | | [place], POINT OF CARE | [address] | [address] | | | TESTS | | | [...] >60 mL/min | [facility] | | [address] | | | STEF, CORE | + + + + + | EGFR NON | 41 (L) | >60 mL/min | [facility] | | -[place] | | | STEF, CORE | + [...] 1.0 | 0.3 - 1.2 mg/dL | [facility] | | | | | SERVICES, CORE | + + + + + | TOTAL PROTEIN, | 7.0 | 6.4 - 8.2 g/dL | [facility] | | PLASMA (LAB) | | | [facility], CORE | + + + + + | ALBUMIN, PLASMA | 2.5 (L) | 3.5 - 4.7 g/dL | [facility] | | (LAB) | | [...] | Interpretive Information: <60 mL/min/1.73 sq | [facility], CORE | | m Chronic Kidney [...] + + + | [facility] | [address] | [place] [address] | | | STEF, KAREEM | [address] | | | + + + + + PHOSPHORUS, PLASMA (06/12/2018 4:27 PM) + +-------+ + + | Component | Value | Ref Range | Performed At | + +-------+ + + | PHOSPHORUS, PLASMA | 3.7 | 2.4 - 4.7 mg/dL | [facility] | | (LAB) | | | KAREEM FINCH | + +-------+ + + + + | Specimen | + + | Blood - Blood | + + + + + + + | Performing | Address | City/State/Zipcode | Phone Number | | Organization | | | | + + + + + | [facility] | [address] | [place] [address] | | | SERVICES, CORE | MARY [...] [place] | [address] | [place], [place] | | | [facility] | [address] | [address] | | | TESTS | | | | + + + + + PROCEDURE NOTE (06/12/2018 2:57 PM) + + + | Narrative | Performed At | + + + | Sandoval Hyde MD 06/17/2018 2:15 PM Date of Service: | | | 08/01/2015 Attending Surgeon: Sandoval Hyde MD | | | Mobile Tester(s): mesfin thompson MD Preoperative Diagnosis: 1. 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 Postoperative Diagnosis: | | | same Procedures Performed: 1. Right knee arthrotomy with | | | drainage for infection and polyethylene exchange 2. Application | | | TINO disposible negative pressure wound therapy dressing right knee | | | [id number] Anesthesia: General endotracheal anesthesia. | | | Implants: excahgned alisha triathalon poly size 15, 13mm EBL: 50 | | | Complications: None Specimens: 6 cultures, 1 path | | | Indication For Procedure: Solo Alves was transferred to [facility] for | | | sepsis after [...] | | | Sandoval Hyde MD, MPH Section [employer], Dept. of Orthopaedics | | | [address] | | | [facility] [place] [address] | | | [email or web address] [...] [place] | [address] | [place], [place] | | | [facility] | [facility] | [address] | | | TESTS | | | [...] [place] | [address] | [place] | | | [facility] | [address] | [address] | | | TESTS | | | [...] + | [facility] - | [address] | [place] [address] | | | [place] | | | | + + + [...] Propionibacterium due to growth of other | [place] | | organsims. Gram Stain: No squamous epithelial cells No | | | polymorphonuclear cells No organisms seen | | + + + + + + + + | Performing | Address | City/State/Zipcode | Phone Number | | Organization | | | | + + + + + | [facility] - | [address] | [place] [address] | | | [facility] | | | | + + + [...] + | [facility] - | [address] | [place] [address] | | | [place] | | | [...] Propionibacterium due to growth of other | [place] | | organsims. Gram Stain: No squamous epithelial cells Many | | | polymorphonuclear cells No organisms seen | | + + + + + + + + | Performing | Address | City/State/Zipcode | Phone Number | | Organization | | | | + + + + + | [facility] - | [address] | [place] [address] | | | [place] | | | [...] | + + + + + | [facility] - | [address] | [place] [address] | | | [place] | | | | + + + [...] | A. Soft tissue, right | | [facility] | | Diagnosis | knee, biopsy: [...] | Received are 2 specimens | | [facility] | | | fresh in containers | | OF PATHOLOGY | | | labeled with the | | | | | patient's name (initials | | | | | GR) and medical record | | | | | number [id number]. Knee, | | | | | right [...] | ANCILLARY | Analyte specific | | [facility] | | INFORMATION | reagents [...] | | | | | determined by [facility] | | | | | laboratories. [...] + + + + + | [facility] | [address] | [place] [address] | | | PATHOLOGY | [address] [...] | + + + + + | [facility] - | [address] | [place] [address] | | | [place] | | | [...] [facility] | [address] | [place], [place] | | | [facility] | [address] | [address] | | | TESTS | | | [...] [place] | [address] | [place] | | | [facility] | [address] | [address] | | | TESTS | | | [...] [place] | [address] | [place], [place] | | | [facility] | [address] | [address] | | | TESTS | | | | + + + + + CARDIOLOGY (06/12/2018) + + + | Narrative | Performed At | + + + | | | + + + CULTURE, BLOOD BACTI & YEAST [facility] (06/11/2018 10:29 PM) + + + + + | Component | Value | Ref Range | Performed At | + + + + + | CULTURE RESULT | Final Report:No Bacteria | | [facility] | | | or Yeast [...] + + + | [facility] | [address] | [place] [address] | | | [facility] | [address] | | | + [...] + + + + | [facility] | [address] | [place] [address] | | | SERVICES, CORE | MARY [...] | 3.50 - 10.80 K/cu mm | [facility] | | | | | [...] (H) | 35.1 - 46.3 fL | [facility] | | | | | SERVICES, CORE | + + + + + | PLATELET COUNT | 188 | 150 - 400 K/cu mm | [facility] | | | | | SERVICES, CORE | + + + + + | MPV | 9.3 (L) | 9.7 - 12.3 fL | [facility] | | | | | SERVICES, CORE | + + + + + | NRBC% | 0.2 | 0.0 - 0.3 % | [facility] | | | | | SERVICES, CORE | + + + + + | NRBC# | 0.02 | 0.00 - 0.02 K/cu mm | [facility] | | | | | [...] (L) | 1.0 - 3.0 % | [facility] | | | | | SERVICES, CORE | + + + + + | BASO % | 0.3 | 0.0 - 2.0 % | [facility] | | | | | SERVICES, CORE | + + + + + | IG% | 0.8Comment: Increased | 0.0 - 1.0 % | [facility] | | | immature granulocytes | [...] + + + | [facility] | [address] | [place] [address] | | | SERVICES, CORE | MARY [...] + + + + | [facility] | [address] | [place] [address] | | | SERVICES, CORE | MARY [...] [facility] | [address] | [place] [address] | | | SERVICES, | [address] [...] + + + + | [facility] | [address] | [place] [address] | | | SERVICES, KARE[place] | MARY [...] >60 mL/min | [facility] | | [place] | | | SERVICES, CORE | + + + + + | EGFR NON | 32 (L) | >60 mL/min | [facility] | | -[place] | | | STEF, CORE | + [...] AST CMNT | No Hemo | | [facility] | | | | | SERVICES, [...] + + + | [facility] | [address] | [place] [address] | | | SERVICES, CORE | [address] | | | + + + + + APTT (ACT. PART. THROMBO TIME) (06/11/2018 6:12 PM) + + + + + | Component | Value | Ref Range | Performed At | + + + + + | APTT | 36.5 (H) | 26.0 - 36.0 seconds | [facility] | | | | | KAREEM [...] | + + + + + | [facility] | [address] | [place] [address] | | | SERVICES, KAREEM | [address] [...] + | [facility] | [address] | [place] [address] | | | SERVICES, KAREEM | [address] | | | + + + + + C-REACTIVE PROTEIN (06/11/2018 6:12 PM) + + + + + | Component | Value | Ref Range | Performed At | + + + + + | C-REACTIVE PROTEIN | 143.0 (H) | <10.0 mg/L | [facility] | | | | | [...] + + + | [facility] | [address] | [place] [address] | | | SERVICES, KAREEM | [address] [...] + + + + | [facility] | [address] | [place] [address] | | | SERVICES, CORE | [address] | | | + + + + + ED INFORMATION EXCHANGE (06/11/2018 6:04 PM) + + + | Narrative | Performed At | + + + | [id number] This patient has registered at the [place] | [facility] | | [facility] Emergency Department For more | MEDICAL | | information visit: | [employer]OLOG[employer] | | [email or web address] | | | 35ffec Security Events No [...] Chief Complaint May | | | 2017 [facility] [place] Emergency | | | Emergency 10,800. REF Recent Inpatient Visit | | | Summary No recorded inpatient visits. E.D. Visit Count (12 mo.) | | | Facility Visits [facility] 1 Total 1 | | | [...] | | facilities for additional information. 2018 [facility] | | | [email or web address] - [place], [place] - | | | [email or web address] | | + + + + + | Procedure Note | + + | Service Account, Rtf Results Inbound - 06/11/2018 6:06 PM PDT Formatting of this | | note may be different from the original.[id number] patient has | | registered at the [facility] Emergency Department For more | | information visit: | | [email or web address] | | EventsNo recent Security Events currently on fileED Care GuidelinesThere are currently | | no ED Care Guidelines in [place]ANI[place] for this patient. Please check your facility's medical | | records system.Recent Emergency Department Visit SummaryAdmit Date Facility [facility] | | Type Major Type Diagnoses or Chief Complaint Jun 11, 2018 [facility] | | [facility] [place] Emergency Emergency 10,800. REF Recent Inpatient Visit | | SummaryNo recorded inpatient visits. E.D. Visit Count (12 mo.)Facility Visits [place] | | [facility] 1 [...] | aforementioned facilities for additional information. 2018 [employer] | | [email or web address] - [place], [place] - [email or web address] | |Facility Visits | |[facility] 1 | |Total 1 | |Note: [...] aforementioned facilities for additional information. | |2018 [employer] - [place], [place] - [email or web address] | + + + + + + + | Performing | Address | City/State/Zipcode | Phone Number | | Organization | | | | + + + + + | [facility] | [address], | [place], [place] | [phone] | | TECH[employer] | [address] | [address] | | + + + + + [...] | + + | Pacemaker-dependent due to [place] cardiac rhythm insufficient to support life | [...]
--- OUTSIDE RECORDS SUMMARY | ~2018-07-13 | XMS | Encounter Summary ---
Demographics + + + | Address | [address] | | | [place] [address] | + + + | Home Phone [...] Team Providers + +------+ + | Care Missile And Missile Checkout Technician Name | Role | Phone | [...] | | | 2018 | Event | [facility] | [address] | | | | | Admitting Desk | [facility] | | | | | Located on the 9 | [place], [place] | | | | | floor [address] | [address] | | | | | [facility] | [phone] | | | | | | | | | | | [address] | | | +--------+ + + + [...] | | Single | Fr; 1:Purple; Yes; [id number] | | | | Lumen | | [...] Rd | | | | | | | | | | | | [address] | | | | | | [phone] | | | | | | | | +--------+ + + + + | 07/15/ | Office | Infectious Disease | Abril Shields, | | | 2017 | Visit | | MD Roslyn Jermoe | | | | | | [address] | | | | | | [facility] [place] | | | | | | [address] | | | | | | [phone] | | | | | | | | +--------+ + + + + as of this encounter Visit Diagnoses Not on filein this encounter"
--- OUTSIDE RECORDS SUMMARY | ~2018-07-13 | XMS | Encounter Summary ---
Demographics + + + | Address | [address] | | | [place] [address] | + + + | Home Phone | | + + + | Preferred Language | Unknown | + + + | Marital Status | Unknown | + + + | Protestant Affiliation | PRO | + + + [...] Team Providers + +------+ + | Care Yard Switcher Name | Role | Phone | + [...] I&D, POLY | | 2017 | | [facility] | MD [address] | EXCHANGE MICRO x 7 | | | | Admitting Desk | [facility] | PATH x 2 | | | | Located on the | [place], [place] | | | | | floor [address] | [address] | | | | | [facility] | [phone] | | | | | [place], [place] | | | | | | [address] | | | +--------+---------+ + + + [...] (s/p PCI x3, CABG x2) complicated by event specialist erich systolic heart failure (EF 45%) [...] excellent response. He will continue PT/OT at [facility] swing bed unit. Per orthopedic surgery, stitches [...] CHF: Yes. Patient is not on an ADIJA-I/ARB because of renal og lure. Patient is [...] I-CAPS 280-10-2 mg Cap Generic drug: antiox.mv no.70-pwte7a-kybvbxb5m-fay-poh Take 1 capsule by mouth once daily. [...] (Non-Steroidal Anti-Inflammatory Drug) Renal Failure Avoid per Graphics Programmer recommendations Sulfa (Sulfonamide Antibiotics) Rash Vital Signs [...] information for after-discharge care Discharge Destination IP [facility] . Specialty: Acute Care Hospital Contact information [address] [facility] [place] [address] [place] Location: [facility] swing bed unit Appointments: Dr. Hyde on 07/23/18 at 10:40am. The discharge note was forwarded to the PCP for review. Discharging Physician: Ann Mahmood MD Suggested CPT: 97287 Discharge Management > 30 minute I spent more than 35 minutes iocg-nw-eluk with the patient of which 70% was [...] by | | | | | | no.79-lnel7l-vimpppx1h-bft-iqh | mouth once daily. | | | [...] mouth. | | | | | | 5-fbg-fim-fish oil | | | | | | [...] negative pressure wound therapy dressing right knee [id number] Subjective: Doing ok overall. No CP/SOB. Tolerating [...] Plan to DC today to SNF in [place]. SNF can pull sutures at 2 weeks from operat kai date (June 27 is 2 weeks post op). Plan to return to Dr. Hyde' clinic 6 weeks an d also have ID clinic visit on that day. Appreciate [facility] and ID help in managing this [...] knee at that time. Elias Soriano MD [facility] Department of Orthopaedics and Rehabilitation PGY-1 Pager [phone] Ann Mahmood MD - 06/16/2018 4:42 PM [...] (s/p PCI x3, CABG x2) complicated by event specialist erich systolic heart failure (EF 45%) [...] mg daily Dispo: Anticipate discharge tomorrow to [facility] swing bed unit if renal function is s table Code status: Full code Diet: Regular diet Prophy: warfarin and heparin Ann Mahmood MD Admitting Interviewerprocurement internship Clinical Hospitalist and Medicine Teaching Services [facility] Pager [phone] Suggested CPT: 88478 Subsequent Visit Detailed/High complexity 35 min I spent 37 minutes iuqg-yb-jztl with the patient of which 78% was [...] negative pressure wound therapy dressing right knee [id number] Subjective: Doing ok overall. No CP/SOB. Tolerating [...] to home as t ransporting back to [place] may present the patient and family undo hardship. 6. Dressings/Drains: Pulled yesterday? 7. Dispo/Discharge: Anticipate discharge to SNF in next 1-3 days if all criteria met. 8. Follow-up: Please call the clinic to make a follow up appointment in approximately 2 wee dc with ORTHO TRAUMA & FRACTURE, . AP and lateral of R knee at that time. Elias Soriano MD [facility] Department of Orthopaedics and Rehabilitation PGY-1 Pager [phone] Tanvir Ayala - 06/16/2018 8:20 AM PDTFormatting [...] three and a half hours away from [place]. At this time, we are unsur e of his ability to follow up with an OPAT clinic or if there is a provider near [place], where the patient resides. 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 This patient was staffed [facility] Dr. Villalobos, who agrees with the above assessment and plan unless otherwise documented. Tanvir Ayala, [facility] P SUBJECTIVE Interval Events: No acute events overnight S: patient reports he is feeling well this morning. States he was able to meet with a pillowcase cleaner and had decided to go to a [...] Dona Mercado MD Division of Hospital Medicine [facility] Pager [phone] I spent more than 35 minutes afnl-sn-dijl with the patient of which greater than [...] negative pressure wound therapy dressing right knee [id number] Subjective: Doing ok overall, not too much pain in right knee. 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 6. Dressings/Drains: Continue drain 7. Dispo/Discharge: Anticipate discharge to SNF in next 1-3 days if all criteria met. 8. Follow-up: Please call the clinic to make a follow up appointment in approximately 2 wee ks with ORTHO TRAUMA & FRACTURE, . AP and lateral of R knee at that time. Sisi Pablo, [facility] Orthopaedic Trauma Surgery Pager [phone] Stephan Mercado MD - 06/14/2018 8:59 AM [...] Dona Mercado MD Division of Hospital Medicine [facility] Pager [phone] I spent more than 35 minutes arik-yh-cqyk with the patient of which greater than [...] negative pressure wound therapy dressing right knee [id number] Subjective: Pain improving in R knee. Objective: [...] at that time. SEBAS PLEITEZ MD Pager [phone] Stephan Mercado MD - 06/13/2018 9:51 AM [...] Dona Mercado MD Division of Hospital Medicine [facility] Pager [phone] I spent more than 35 minutes vpls-jk-abne with the patient of which greater than [...] negative pressure wound therapy dressing right knee 11w20af Subjective: Painful in R knee today, but [...] at that time. SEBAS PLEITEZ MD Pager [phone] Stephan Mercado MD - 06/12/2018 1:24 PM [...] Dona Mercado MD Division of Hospital Medicine [facility] Pager [phone] I spent more than 35 minutes sjgs-ee-lukk with the patient of which greater than 50% was sp ent counseling the patient or in coordination of care. in this encounter Plan of Treatment +--------+ + + + + | Date | Type | Specialty | Care Team | Description | +--------+ + + + + | 07/14/ | Appointment | Radiology | Sandvoal Hyde, | | | 2019 | | | [address] | | | | | | [address] | | | | | | [place], [place] | | | | | | [address] | | | | | | [phone] | | | | | | | | +--------+ + + + + | 07/15/ | Office | Infectious Disease | Abril Shields, | | | 2017 | Visit | | [address] [facility] | | | | | | [address] | | | | | | [place], [place] | | | | | | [address] | | | | | | [phone] | | | | | | | [...] | | | | | ([facility]) | | + +--------+ + + [...] + + + | [facility] | [address] | [place], [place] | | | KIERRA OPHELIA OF [facility] | [address] | [address] | | | TESTS | | | [...] + | [facility] | [address] | [place] [address] | | | SERVICES, KAREEM | [address] | | | + + + [...] >60 mL/min | [facility] | | SPANISH | | | SERVICES, CORE | + + + + + | EGFR NON | 38 (L) | >60 mL/min | [facility] | | -SPANISH | | | SERVICES, CORE | + [...] | + + + + + | [facility] | [address] | [place] [address] | | | SERVICES, CORE | DANI [...] [place] | [address] | [place], [place] | | | KIERRA POINT OF CARE | [address] | [address] | | | TESTS | | | [...] [facility] | [address] | [place], [place] | | | OPHELIA LOZADA OF CHRIS | [address] | [address] | | | TESTS | | | | + + + + + X-RAY PORTABLE CHEST 1 VIEW (06/16/2018 4:29 PM) + + + | Narrative | Performed At | + + + | EXAM: [place] CHEST 1 VIEW HISTORY: PICC placement. Prosthetic [...] Note | + + | Service Account, FX Bridge In Interface - 06/16/2018 4:44 PM PDT EXAM: [place] CHEST 1 | | VIEW HISTORY: PICC [...] | | correct patient, procedure, equipment, support manager and site/side | | | [...] vein. Catheter lot | | | number: [id number] with a length of 55 cm was [...] [facility] | [address] | [place], [place] | | | KIERRA POINT OF CARE | [address] | [address] | | | TESTS | | | [...] [facility] | [address] | [place] [address] | | | KAREEM FINCH | DANI [...] >60 mL/min | [facility] | | SPANISH | | | SERVICES, CORE | + + + + + | EGFR NON | 32 (L) | >60 mL/min | [facility] | | -SPANISH | | | SERVICES, CORE | + [...] | + + + + + | [facility] | [address] | [place] [address] | | | SERVICES, CORE | DANI [...] [place] | [address] | [place], [place] | | | OPHELIA LOZADA OF CARE | [facility] | [address] | | | TESTS | | | [...] [place] | [address] | [place], [place] | | | KIERRA POINT OF CARE | [facility] | [address] | | | TESTS | | | [...] D[facility] | [address] | [place], [place] | | | KIERRA POINT OF CARE | [address] | [address] | | | TESTS | | | [...] 92.9 | 80.0 - 100.0 fL | [facility] | | | | | SERVICES, [...] | + + + + + | [facility] | [address] | [place] [address] | | | SERVICES, CORE | DANI [...] >60 mL/min | [facility] | | SPANISH | | | STEF, [facility] | + + + + + | EGFR NON | 31 (L) | >60 mL/min | [facility] | | -SPANISH | | | STEF, CORE | + [...] | [facility] | [address] | [place] [address] | | | KAREEM FINCH | DANI [...] [facility] | [address] | [place] [address] | | | KAREEM FINCH | [address] [...] [facility] | [address] | [place] [address] | | | SERVICESKAREEM | [address] [...] | + + + + + | [facility] | [address] | [place] [address] | | | KAREEM FINCH | [address] [...] | + + + + + | [facility] | [address] | [place] [address] | | | SERVICES, CORE | DANI [...] [place] | [address] | [place], [place] | | | KIERRA OSNABROCK OF [facility] | [address] | [address] | | | TESTS | | | [...] >60 mL/min | [facility] | | SPANISH | | | SERVICES, CORE | + + + + + | EGFR NON | 29 (L) | >60 mL/min | [facility] | | -SPANISH | | | SERVICES, CORE | + [...] immediately prior to 18:00 dose on | [facility] | | 06/14/18. Hold dose until Pharmacist confirms level is appropriate. | LABORATORY | | Page [phone] or [phone] with questions. Thank you. GFR is | [...] | + + + + + | [facility] | [address] | [place] [address] | | | KAREEM FINCH | DANI [...] ranges for full anticoagulation: INR for | [facility] | | Venous Thromboembolism (2.0 - 3.0) INR INR | LABORATORY | | for most patients with mech. valves (2.5 - 3.5) INR | SERVICES, CORE | + + + + + + + + | Performing | Address | City/State/Zipcode | Phone Number | | Organization | | | | + + + + + | [facility] | [address] | [place] [address] | | | SERVICES, CORE | DANI [...] is appropriate. | LABORATORY | | Page [phone] or call [phone] with questions. Thank you. | SERVICES, CORE | + + + + + + + + | Performing | Address | City/State/Zipcode | Phone Number | | Organization | | | | + + + + + | [facility] | [address] | [place] [address] | | | SERVICES, CORE | [address] [...] [place] | [address] | [place], [place] | | | KIERRA POINT OF CARE | [address] | [address] | | | TESTS | | | [...] DARSHANA | [address] | [place], [place] | | | KIERRA POINT OF CARE | [address] | [address] | | | TESTS | | | [...] 93.2 | 80.0 - 100.0 fL | [facility] | | | | | SERVICES, CORE | + + + + + | MCHC | 32.9 | 32.0 - 36.0 g/dL | [facility] | | | | | SERVICES, CORE | + + + + + | RDW SD | 61.1 (H) | 35.1 - 46.3 fL | [facility] | | | | | SERVICES, [...] 0.0 | 0.0 - 0.3 % | [facility] | | | | | SERVICES, CORE | + + + + + | NRBC# | 0.00 | 0.00 - 0.02 K/cu mm | [facility] | | | | | SERVICES, [...] [facility] | [address] | [place] [address] | | | KAREEM FINCH | DANI [...] >60 mL/min | [facility] | | SPANISH | | | SERVICES, CORE | + + + + + | EGFR NON | 31 (L) | >60 mL/min | [facility] | | -SPANISH | | | SERVICES, CORE | + [...] | + + + + + | [facility] | [address] | [place] [address] | | | SERVICES, CORE | PARK [...] [place] | | | | | LUCIA LOZDAA | | | | | CARE TESTS | + +---------+ + + + + + + + | Performing | Address | City/State/Zipcode | Phone Number | | Organization | | | | + + + + + | [facility] | [address] | [place], [place] | | | OPHELIA LOZADA OF CARE | [address] | [address] | | | TESTS | | | [...] [place] | [address] | [place], [place] | | | KIERRA POINT OF CARE | [facility] | [address] | | | TESTS | | | [...] [facility] | [address] | [place], [place] | | | KIERRA POINT OF CARE | [address] | [address] | | | TESTS | | | [...] + | ECG IMPRESSION | Borderline prolonged [place] | | [facility] | | [...] + | [facility] | [address] [facility] [facility] | [place], [place] | | | CARDIOLOGY | [address] | [address] | | + + + + + [...] [facility] | [address] | [place], [place] | | | OPHELIA LOZADA OF [facility] | [facility] | [address] | | | TESTS | | | [...] (H) | 35.1 - 46.3 fL | [facility] | | | | | SERVICES, CORE | + + + + + | PLATELET COUNT | 136 (L) | 150 - 400 K/cu mm | [facility] | | | | | SERVICES, CORE | + + + + + | MPV | 9.9 | 9.7 - 12.3 fL | [facility] | | | | | SERVICES, CORE | + + + + + | NRBC% | 0.0 | 0.0 - 0.3 % | [facility] | | | | | SERVICES, [...] | + + + + + | [facility] | [address] | [place] [address] | | | SERVICES, CORE | [address] [...] >60 mL/min | [facility] | | SPANISH | | | STEF, CORE | + + + + + | EGFR NON | 40 (L) | >60 mL/min | [facility] | | -SPANISH | | | SERVICES, CORE | + [...] | + + + + + | [facility] | [address] | [place] [address] | | | SERVICES, [facility] | [address] | | | + [...] | [facility] | [address] | [place] [address] | | | SERVICES, CORE | [address] [...] >60 mL/min | [facility] | | SPANISH | | | SERVICES, CORE | + + + + + | EGFR NON | 43 (L) | >60 mL/min | [facility] | | -SPANISH | | | STEF, CORE | + [...] [facility] | [address] | [place] [address] | | | SERVICES, CORE | DANI [...] | + + + + + | [facility] | [address] | [place] [address] | | | SERVICES, | [address] | | | | TRANSFUSION MEDICINE | | | | + + + + + ANTIBODY SCREEN (06/12/2018 10:23 PM) + + + + + | Component | Value | Ref Range | Performed At | + + + + + | Antibody Screen | Negative | | [facility] | | | | | SERVICES, [...] | + + + + + | [facility] | [address] | [place] [address] | | | SERVICES, | [address] [...] | 4.50 - 6.00 M/cu mm | [facility] | | | | | SERVICES, [...] (H) | 35.1 - 46.3 fL | [facility] | | | | | SERVICES, [...] | + + + + + | [facility] | [address] | [place] [address] | | | KAREEM FINCH | DANI [...] [facility] | [address] | [place] [id number] | | | SERVICES, | [address] [...] + + + | [facility] | [address] | [place] [address] | | | SERVICES, KAREME | [address] | | | + [...] + + | [facility] | [address] | [place], [place] | | | OPHELIA LOZADA OF [facility] | [address] | [address] | | | TESTS | | | [...] >60 mL/min | [facility] | | SPANISH | | | SERVICES, CORE | + + + + + | EGFR NON | 41 (L) | >60 mL/min | [facility] | | -SPANISH | | | SERVICES, CORE | + [...] | + + + + + | [facility] | [address] | [place] [address] | | | SERVICES, KAREEM | [address] | | | + + + + + PHOSPHORUS, PLASMA (06/12/2018 4:27 PM) + +-------+ + + | Component | Value | Ref Range | Performed At | + +-------+ + + | PHOSPHORUS, PLASMA | 3.7 | 2.4 - 4.7 mg/dL | [facility] | | (LAB) | | | SERVICES, CORE | + +-------+ + + + + | Specimen | + + | Blood - Blood | + + + + + + + | Performing | Address | City/State/Zipcode | Phone Number | | Organization | | | | + + + + + | [facility] | [address] | [place] [address] | | | SERVICES, CORE | PARK [...] + | [facility] | [address] [address] | [place], [place] | | | KIERRA OSNABROCK OF [facility] | [address] | [address] | | | TESTS | | | | + + + + + PROCEDURE NOTE (06/12/2018 2:57 PM) + + + | Narrative | Performed At | + + + | Sandoval Hyde MD 06/17/2018 2:15 PM Date of Service: | | | 08/01/2015 Attending Surgeon: Sandoval Hyde MD | | | Federal Agent(s): mesfin thompson MD Preoperative Diagnosis: 1. 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 Postoperative Diagnosis: | | | same Procedures Performed: 1. Right knee arthrotomy with | | | drainage for infection and polyethylene exchange 2. Application | | | TINO disposible negative pressure wound therapy dressing right knee | | | [id number] Anesthesia: General endotracheal anesthesia. | | | [...] follow up in approximately 2-3 weeks with [facility] | | | Jeremy for wound inspection [...] | | | Sandoval Hyde MD, MPH Table Worker, Dept. of Orthopaedics | | | [address] | | | [address] [address] | | | [email or web address] | | + + + CAPILLARY BLOOD [...] [facility] | [address] | [place], [place] | | | KIRERA POINT OF CARE | [address] | [address] | | | TESTS | | | [...] [facility] | [address] | [place], [place] | | | KIERRA POINT OF CARE | [address] | [address] | | | TESTS | | | [...] + | [facility] | [address] [place] [address] | [place] [address] | | | [facility] | | | | + + + [...] + | [facility] | [address] | [place] [address] | | | [place] | | | [...] + | [facility] | [address] | [place] [address] | | | [place] | | | | + + + [...] Propionibacterium due to growth of other | [place] | | organsims. Gram Stain: No squamous epithelial cells Many | | | polymorphonuclear cells No organisms seen | | + + + + + + + + | Performing | Address | City/State/Zipcode | Phone Number | | Organization | | | | + + + + + | [facility] | [address] | [place] [address] | | | [place] | | | [...] Propionibacterium due to growth of other | [facility] | | organsims. Gram Stain: No squamous epithelial cells Rare | | | polymorphonuclear cells No organisms seen | | + + + + + + + + | Performing | Address | City/State/Zipcode | Phone Number | | Organization | | | | + + + + + | [facility] | [address] | [place] [address] | | | [place] | | | [...] record | | | | | number [id number]. Knee, | | | | | right [...] | + + + + + | [facility] | [address] | [place] [address] | | | PATHOLOGY | [address] [...] AIRPORT - | | | | | [place] | + + + + + + [...] + | [facility] | [address] | [place] [address] | | | [place] | | | | + + + [...] [facility] | [address] | [place], [place] | | | OPHELIA LOZADA OF CARE | [address] | [address] | | | TESTS | | | [...] [facility] | [address] | [place], [place] | | | KIERRA POINT OF CARE | [facility] | [address] | | | TESTS | | | [...] [place] | [address] | [place], [place] | | | OPHELIA LOZADA OF [facility] | [address] | [address] | | | TESTS | | | [...] RESULT | Final Report:No Bacteria | | [facility] | | | or Yeast isolated at 5 | | SERVICES, [facility] | | | days. | | | + + + + + + + | Specimen | + + | Blood | + + + + + + + | Performing | Address | City/State/Zipcode | Phone Number | | Organization | | | | + + + + + | [facility] | [address] | [place] [address] | | | SERVICES, CORE | DANI [...] | + + + + + | [facility] | [address] | [place] [address] | | | SERVICES, CORE | [address] [...] Note | + + | Service Account, FX Bridge In Interface - 06/11/2018 8:31 PM PDT [...] 92.2 | 80.0 - 100.0 fL | [facility] | | | | | SERVICES, [...] 0.2 | 0.0 - 0.3 % | [facility] | | | | | SERVICES, [...] | 0.00 - 0.50 K/cu mm | [facility] | | | | | SERVICES, [...] | + + + + + | [facility] | [address] | [place] [address] | | | SERVICES, CORE | DANI [...] [facility]STITUTE [facility] | [address] | [place] [address] | | | SERVICES, CORE | PARK [...] | + + + + + | [facility] | [address] | [place] [address] | | | SERVICES, | [address] [...] [facility] | [address] | [place] [address] | | | SERVICES, CORE | PARK [...] | | (LAB) | | | STEF, [facility] | + + + + + | EGFR - | 39 (L) | >60 mL/min | [facility] | | SPANISH | | | STEF, [facility] | + + + + + | EGFR NON | 32 (L) | >60 mL/min | [facility] | | -SPANISH | | | [facility], [facility] | + + + + + | SODIUM, PLASMA (LAB) | 135 (L) | 136 - 145 mmol/L | [facility] | | | | | SERVICES, [facility] | + + + + + | [...] | Interpretive Information: <60 mL/min/1.73 sq | [facility], CORE | | m Chronic [...] | + + + + + | [facility] | [address] | [place] [address] | | | KAREEM FINCH | DANI [...] [facility]STITUTE [facility] | [address] | [place] [address] | | | KAREEM FINCH | DANI [...] | + + + + + | [facility] | [address] | [place] [address] | | | SERVICES, CORE | PARK [...] | + + + + + | [facility] | [address] | [place] [address] | | | SERVICES, KAREEM | [address] | | | + + + + + SEDIMENTATION RATE (06/11/2018 6:12 PM) + +--------+ + + | Component | Value | Ref Range | Performed At | + +--------+ + + | SEDIMENTATION RATE | 87 (H) | 0 - 20 mm/hr | [facility] | | | | | SERVICES, [...] | + + + + + | [facility] | [address] | [place] [address] | | | STEF, KAREEM | [address] | | | + + + + + ED INFORMATION EXCHANGE (06/11/2018 6:04 PM) + + + | Narrative | Performed At | + + + | [id number] This patient has registered at the [place] | COLLECTIVE | | [facility] [place] [facility] For more | MEDICAL | | information visit: | TECHNOLOGIES | | [email or web address] | | | 35ffec Security Events No [...] Chief Complaint Aug | | | 2017 [facility] [place] Emergency | | | Emergency [phone]. REF Recent Inpatient Visit | | | Summary No recorded inpatient visits. E.D. Visit Count (12 mo.) | | | Facility Visits [facility] 1 Total 1 | [...] | | facilities for additional information. 2018 117go | | | [email or web address] - [place], [place] - | | | [email or web address] | | + + + + + | Procedure Note | + + | Service Account, Rtf Results Inbound - 06/11/2018 6:06 PM PDT Formatting of this | | note may be different from the original.[id number] patient has | | registered at the [facility] [place] [facility] For more | | information visit: | | [email or web address] Security | | EventsNo recent Security Events currently on fileED Care GuidelinesThere are currently | | no ED Care Guidelines in DANIEL for this patient. Please check your facility's medical | | records system.Recent Emergency Department Visit SummaryAdmit Date Facility [facility] State | | Type Major Type Diagnoses or Chief Complaint Jun 11, 2018 [facility] | | [facility]. [place] Emergency Emergency 10,800. REF Recent Inpatient Visit | | SummaryNo recorded inpatient visits. E.D. Visit Count (12 mo.)Facility Visits [place] | | [facility] [...] | aforementioned facilities for additional information. 2018 117go | | [employer], [place] - [email or web address] | |Facility Visits | |[facility] 1 | |Total 1 [...] aforementioned facilities for additional information. | |2018 [employer] - [place], [place] - [email or web address] | + + + + + + + | Performing | Address | City/State/Zipcode | Phone Number | | Organization | | | | + + + + + | [employer] | [address], | [place], [place] | [phone] | | [employer] | [address] | [address] | | + + + + + [...] mg, intramuscular, | | | NEEDED, Starting [facility] 06/11/18 at | | | 2306, Until [...]
--- OUTSIDE RECORDS SUMMARY | ~2018-07-13 | XMS | Clinical Summary ---
Demographics + + + | Address | [address] | | | [place] [address] | + + + | Home Phone | | + + + | Preferred Language | Unknown | + + + | Marital Status | | + + + | Congregation Affiliation | 1077 | + + + | Race | Unknown | + + + | Ethnic Group | Unknown | + + + Author + + + | Author | [employer] | + + + | Organization | [facility] [employer] | + + + | Address | Unknown | + + + | Phone | Unavailable | + + + Support + + +---------+ + | Name | Relationship | Address | Phone | + + +---------+ + | Beth Mas | ECON | Unknown | | + + +---------+ + Care Team Providers + +------+ + | Care Life Insurance Sales Name | Role | Phone | + [...] | | | + + +--------+---------+------+------+-------+ | [place]-3 Fatty | Take 1,200 mg by | [...] + | Overview: He is seen a beauty culturist because of generalized | | skin lesions [...] + + | Overview: 1. Pulse generator: [employer]. Model number [id number], | | serial number [id number]. Placed because of symptomatic sinus | | [...] block.2. RV | | lead: Medtronic, model #610472, serial number [id number]. RA | | lead: Medtronic, model #394944, serial number [id number]. This | | is an Medtronic MRI [...] is planning to | | go to [place] after . 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 | + + + + + [...] | 2017 | Requisition | | I, Ordering Machine Operator | hypertension with | | | | [...] [address] | | | | | | [place] [address] | | | | | | [phone] | | | | | | | [...] | Rhythm | | | | | [address] | | Mikal Ha MD | | [...] | Rhythm | | | | | [address] | | Mikal Ha MD | | [...] | | 2017 | -500 | | [id number]: Qty: 1 on | | | | | | /[id number] | | 09/07/2013 by Aris, | | | | | | 500 | | Drew Napoles MD | | | | | | /[id number] | + +--------+-------+ +--------+--------+--------+ | Patella Triathlon 38mm 11mm | | | | | 04/25/ | 5551-G | | Height - [id number]: | | | | | 2017 | [...] | | 2017 | -402 | | [id number]: Qty: 1 on | | | | [...] - | | | | | | /[id number] | | [id number]: Qty: 1 on | | | | | | 001 | | 09/07/2013 by Aris, | | | | | | /[id number] | | Drew Napoles MD | | | | | | 1 | + +--------+-------+ +--------+--------+--------+ | Insert Tibial Triathlon Cs Sz | | | | | 01/23/ | 5531-G | | 5 13mm - [id number]: | | | | | 2017 | [...] | [address] | [place] [address] | [phone] | | LABORATORY | Blvd. | | [...] | + + + + + | [facility] | [address] | [place] [address] | [phone] | | LABORATORY | Blvd. | | [...] [facility] | [address] | [place] [address] | [phone] | | LABORATORY | Blvd. | | [...] + + + + + | Specific [place], UA | 1.008 | 1.002 - 1.030 [...] | [address] | [place] [address] | [phone] | | LABORATORY | Blvd. | | [...] [facility] | [address] | [place] [address] | [phone] | | LABORATORY | Blvd. | | [...] [facility] | [address] | [place] [address] | [phone] | | LABORATORY | Blvd. | | [...] + + + + | [facility] | [address] | [place] [address] | [phone] | | LABORATORY | Blvd. | | [...] 9.4 | 8.5 - 10.5 mg/dL | [facility] | | | | | LABORATORY | + + + + + | Albumin | 3.6 | 3.3 - 4.8 g/dL | [facility] | | | | | LABORATORY | + + + + + | PHOSPHORUS | 2.8 | 2.3 - 4.8 mg/dL | [facility] | | | | | LABORATORY | + + + + + | EGFR | 37 (L)Comment: GFR <60: | >60 mL/min/1.73_m2 | [facility] | | | CHRONIC KIDNEY DISEASE, | [...] [facility] | [address] | [place] [address] | [phone] | | LABORATORY | [place] | | [...] +------+-------+ + | MEDICARE | MEDICA | [id number] | | | [address] | | | RE | | | | [place] [address] | | | IP-OP | | | | | + +--------+ +------+-------+ + | CIGNA | CIGNA | [id number] | | | | | | - [...] | Self | [birth year] | Home: | [address] | | | al/Fam | | 1940 | [phone] | [place] [address] | | | afshan | | | [phone] | | + +--------+ +--------+ + +
--- OUTSIDE RECORDS SUMMARY | ~2018-07-13 | XMS | Encounter Summary ---
Demographics + + + | Address | [address] | | | [place] [address] | + + + | Home Phone [...] Team Providers + +------+ + | Care Gwot Ia/Ilo Intelligence Support Name | Role | Phone | + +------+ + | Gilberto Estrada MD | PCP | | + +------+ + Encounter Details +--------+ + + + + | Date | Type | Department | Care Team | Description | +--------+ + + + + | 06/12/ | Procedure | 6A Intra Op [facility] | | | | 2017 | Pass | [facility] | | | | | | Admitting Desk | | | | | | Located on the 9th | | | | | | floor [address] [facility] | | | | | | [facility] | | | | | | [place], [place] | | | | | | [address] | | | +--------+ + + + [...] | | | | | | [facility] [place] | | | | | | [address] | | | | | | [phone] | | | | | | | | +--------+ + + + + | 07/15/ | Office | Infectious Disease | Abril Shields, | | | 2017 | Visit | | MD Roslyn Jerome | | | | | | [address] | | | | | | [facility] [place] | | | | | | [address] | | | | | | [phone] | | | | | | | | +--------+ + + + + as of this encounter Visit Diagnoses Not on filein this encounter"
--- OUTSIDE RECORDS SUMMARY | ~2018-07-13 | XMS | Encounter Summary ---
Demographics + + + | Address | [address] | | | [place] [address] | + + + | Home Phone [...] Team Providers + +------+ + | Care Pressure Dispatcher Name | Role | Phone | [...] | | 2018 | | Diseases at [facility] 3rd | RN [address] | Management (OPAT); | | | | Floor [address] | [facility] | Infectious disease | | | | [facility] | [place], [place] | | | | | Mailcode: L457 | [address] | | | | | [facility] | | | | | | [place], [place] | | | | | | [address] | | | | | | [phone] | | | +--------+ + + + [...] Rd | | | | | | [facility] [place] | | | | | | [address] | | | | | | [phone] | | | | | | | | +--------+ + + + + | 07/15/ | Office | Infectious Disease | Abril Shields, | | | 2017 | Visit | | MD Roslyn Jerome | | | | | | [address] | | | | | | [place], [place] | | | | | | [address] | | | | | | [phone] | | | | | | | | +--------+ + + + + as of this encounter Visit Diagnoses Not on filein this encounter"
--- OUTSIDE RECORDS SUMMARY | ~2018-07-13 | XMS | Encounter Summary ---
Demographics + + + | Address | [address] | | | [place] [address] | + + + | Home Phone [...] Providers + +------+ + | Care High School Foreign Language Teacher Name | Role | Phone | [...] KNEE I&D, | | 2017 | | [facility] | [address] | POSSIBLE COMPONENT | | | | Admitting Desk | [facility] | EXCHANGE, POSSIBLE | | | | Located on the | [facility] [place] | REVISION | | | | floor [address] [facility] | [address] | | | | | [facility] | [phone] | | | | | [place], [place] | | | | | | [address] | | | +--------+---------+ + + + [...] by | | | | | | no.41-sibg0m-hkfdjyq5f-viv-kpt | mouth once daily. | | | [...] mouth. | | | | | | 8-tzj-rqe-fish oil | | | | | | [...] Rd | | | | | | [place], [place] | | | | | | [address] | | | | | | [phone] | | | | | | | | +--------+ + + + + | 07/15/ | Office | Infectious Disease | Abril Shields, | | | 2017 | Visit | | MD Roslyn Jerome | | | | | | [address] | | | | | | [place], [place] | | | | | | [address] | | | | | | [phone] | | | | | | | [...]
--- OUTSIDE RECORDS SUMMARY | ~2018-07-13 | XMS | Clinical Summary ---
Demographics + + + | Address | [address] | | | [place] [address] | + + + | Home Phone | | + + + | Preferred Language | Unknown | + + + | Marital Status | | + + + | Evangelical Affiliation | 1076 | + + + [...] Team Providers + +------+ + | Care Molasses Feed Mixer Name | Role | Phone | [...] | 07/22/2017 | + + + | snf current use of anticoagulant - COUMADIN | 07/22/2017 | + + + | Beta Blockers - Daily Use | 07/22/2017 | + + + | Diabetes mellitus, type II - ORAL Control | 07/22/2017 | + + + | Gozsy-ad-Kyfibf lying flat | 07/22/2017 | + + [...] +--------+ +---------+ | CIGNA | CIGNA | [id number] | Indemn | [phone] | | | | MDCR | | ity | 3211 | | | | SUPPLE | | | | | | | MENT | | | | | | | SOLUTI | | | | | | | ONS | | | | | + +--------+ +--------+ +---------+ | MEDICARE | MEDICA | [id number] | Medica | +1- | | | [...] | Self | [birth year] | Home: | [address] | | | al/Fam | | 1940 | [phone] | [place] [address] | | | afshan | | | [phone] | | + +--------+ +--------+ + +
--- OUTSIDE RECORDS SUMMARY | ~2018-07-13 | XMS | Encounter Summary ---
Demographics + + + | Address | [address] | | | [place] [address] | + + + | Home Phone [...] Team Providers + +------+ + | Care Hydroelectric Mechanic Name | Role | Phone | [...] | | | 2018 | Event | [facility] | [address] | | | | | Admitting Desk | [facility] | | | | | Located on the 9 | [place], [place] | | | | | floor [address] | [address] | | | | | [facility] | [phone] | | | | | [place], [place] | | | | | | [address] | | | +--------+ + + + [...] | | Single | Fr; 1:Purple; Yes; [id number] | | | | Lumen | | [...] Rd | | | | | | [place], [place] | | | | | | [address] | | | | | | [phone] | | | | | | | | +--------+ + + + + | 07/15/ | Office | Infectious Disease | Abril Shields, | | | 2017 | Visit | | MD Roslyn Jerome | | | | | | [address] | | | | | | [facility] [place] | | | | | | [address] | | | | | | [phone] | | | | | | | | +--------+ + + + + as of this encounter Visit Diagnoses Not on filein this encounter"
--- OUTSIDE RECORDS SUMMARY | ~2018-07-13 | XMS | Encounter Summary ---
Demographics + + + | Address | [address] | | | [place] [address] | + + + | Home Phone [...] Providers + +------+ + | Care Oil Field Worker Name | Role | Phone | + +------+ + | Gilberto Estrada MD | PCP | | + +------+ + Encounter Details +--------+ + + + + | Date | Type | Department | Care Team | Description | +--------+ + + + + | 06/12/ | Procedure | 6A Intra Op [facility] | | | | 2017 | Pass | [facility] | | | | | | Admitting Desk | | | | | | Located on the 9th | | | | | | floor [address] [facility] | | | | | | [facility] | | | | | | [place], [place] | | | | | | [address] | | | +--------+ + + + [...] [place] | | | | | | [address] | | | | | | [phone] | | | | | | | | +--------+ + + + + | 07/15/ | Office | Infectious Disease | Abril Shields, | | | 2017 | Visit | | MD Roslyn Jerome | | | | | | [address] | | | | | | [facility] [place] | | | | | | [address] | | | | | | [phone] | | | | | | | | +--------+ + + + + as of this encounter Visit Diagnoses Not on filein this encounter"
--- OUTSIDE RECORDS SUMMARY | ~2018-07-13 | XMS | Encounter Summary ---
Demographics + + + | Address | [address] | | | [place] [address] | + + + | Home Phone [...] Team Providers + +------+ + | Care Book Critic Name | Role | Phone | + [...] | Floor [address] | [facility] | | | | | [facility] | [place], [place] | | | | | Mailcode: L457 | [address] | | | | | [facility] | [phone] | | | | | [place], [place] | | | | | | [address] | | | | | | [phone] | | | +--------+ + + + [...] | 2017 | | | [address] [facility] | | | | | | [facility] | | | | | | [place], [place] | | | | | | [address] | | | | | | [phone] | | | | | | | | +--------+ + + + + | 07/15/ | Office | Infectious Disease | Abril Shields, | | | 2017 | Visit | | [address] | | | | | | [address] | | | | | | [place], [place] | | | | | | [address] | | | | | | [phone] | | | | | | | | +--------+ + + + + as of this encounter Visit Diagnoses + + | Diagnosis | + + | Infection associated with internal right knee prosthesis, subsequent encounter - Primary | + +"
--- OUTSIDE RECORDS SUMMARY | ~2018-07-13 | XMS | Clinical Summary ---
Demographics + + + | Address | [address] | | | [place] [address] | + + + | Home Phone [...] Team Providers + +------+ + | Care Feeder Operator Automatic Name | Role | Phone | + +------+ + | Gilma Culver MD | PP | | + +------+ + Source Comments [facility] is fully live on both [facility] and [facility] InPatient.[facility] Allergies + + + + + + | Active Allergy | Reactions | Severity | Noted | Comments | | | | | Date | | + + + + + + | Nsaids | Renal Failure | High | 06/14/20 | Avoid per | | (Non-Steroidal | | | 18 | Compounding Scaler | | Anti-Inflammatory | | | | [...] | | | | Activ | | 7-htj-iep-fish oil | | | | | | e | | (FISH OIL) | | | | | | | | 100-160-1,000 mg | | | | | | | | oral capsule | | | | | | | + + + +---------+------+------+-------+ | antiox.mv | Take 1 capsule by | | | | | Activ | | no.23-lbht5j-sbnnffo6h-pef-dxn | mouth once daily. 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 | | | OSA12. Gout | | [...] | History of | | | DVT: [place] | | | ked DVT in | [...] | SR 500 mg | | | Ae39Bkyrebl | | | y known as: | [...] | CR 60 mg | | | Lj72Agxebyu | | | y known as: | [...] | | [address] | | | n [place] | | | [address] | | | [phone] | | | [...] | | Suggested | | | CPT: 99173 | | | Discharge | | | [...] Rd | | | | | | [place], [place] | | | | | | [address] | | | | | | [phone] | | | | | | | | +--------+ + + + + | 07/15/ | Office | | Abril Shields, | | | 2017 | Visit | | MD Roslyn Jerome | | | | | | [address] | | | | | | [place], [place] | | | | | | [address] | | | | | | [phone] | | | | | | | [...] [facility] | [address] | [place], [place] | | | [facility] | [address] | [address] | | | TESTS | | | | + + + + + INR (06/17/2018 3:59 AM)Only the most recent of 5 results within the time period is includ ed. + + + + + | Component | Value | Ref Range | Performed At | + + + + + | INR | 1.78 (H) | 0.90 - 1.20 INR | [facility] | | | | | SERVICES, CORE | + + + + + + + | Specimen | + + | Blood - Blood | + + + + + | Narrative | Performed At | + + + | INR Therapeutic ranges for full anticoagulation: INR for | [facility] | | Venous Thromboembolism (2.0 - 3.0) INR INR | LABORATORY | | for most patients with mech. valves (2.5 - 3.5) INR | STEF, CORE | + + + + + + + + | Performing | Address | City/State/Zipcode | Phone Number | | Organization | | | | + + + + + | [facility] | [address] | [place] [address] | | | SERVICES, CORE | DANI [...] >60 mL/min | [facility] | | NIUEAN | | | STEF, CORE | + + + + + | EGFR NON | 38 (L) | >60 mL/min | [facility] | | -NIUEAN | | | SERVICES, CORE | + [...] (L) | 8.6 - 10.2 mg/dL | [facility] | | (LAB) | | | SERVICES, CORE | + + + + + | ANION GAP | 5 | 4 - 11 mmol/L | [facility] | | | | | SERVICES, CORE | + + + + + | POTASSIUM CMNT | No Hemo | | [facility] | | | | | SERVICES, [...] + + + + + | [facility] | [address] | [place] [address] | | | SERVICES, [facility] | [address] | | | + + + + + X-RAY PORTABLE CHEST 1 VIEW (06/16/2018 4:29 PM) + + + | Narrative | Performed At | + + + | EXAM: AL CHEST 1 VIEW HISTORY: PICC placement. Prosthetic [...] Interface - 06/16/2018 4:44 PM PDT EXAM: AL CHEST 1 | | VIEW HISTORY: PICC [...] | | | correct patient, procedure, equipment, health support specialist and site/side | | | [...] vein. Catheter lot | | | number: [id number] with a length of 55 cm was [...] | 3.50 - 10.80 K/cu mm | [facility] | | | | | SERVICES, CORE | + + + + + | RED CELL COUNT | 3.10 (L) | 4.50 - 6.00 M/cu mm | [facility] | | | | | SERVICES, CORE | + + + + + | HEMOGLOBIN | 9.5 (L) | 13.5 - 17.5 g/dL | [facility] | | | | | SERVICES, CORE | + + + + + | HEMATOCRIT | 28.8 (L) | 41.0 - 53.0 % | [facility] | | | | | SERVICES, [...] (H) | 35.1 - 46.3 fL | [facility] | | | | | SERVICES, CORE | + + + + + | PLATELET COUNT | 216 | 150 - 400 K/cu mm | [facility] | | | | | SERVICES, CORE | + + + + + | MPV | 9.4 (L) | 9.7 - 12.3 fL | [facility] | | | | | SERVICES, [...] (L) | 1.0 - 3.0 % | [facility] | | | | | SERVICES, CORE | + + + + + | BASO % | 0.2 | 0.0 - 2.0 % | [facility] | | | | | SERVICES, CORE | + + + + + | IG% | 0.5Comment: Increased | 0.0 - 1.0 % | [facility] | | | immature granulocytes | [...] | 0.00 - 0.10 K/cu mm | [facility] | | | | | SERVICES, [...] + + + + + | [facility] | [address] | [place] [address] | | | SERVICES, CORE | [address] [...] [facility] | [address] | [place] [address] | | | KAREEM FINCH | [address] [...] [facility] | [address] | [place] [address] | | | KAREEM FINCH | DANI [...] [facility] | [address] | [place] [address] | | | SERVICESKAREEM | [address] [...] | + + + + + | [facility] | [address] | [place] [address] | | | SERVICES, CORE | DANI [...] 12.9 | 10.0 - 20.0 ug/mL | [facility] | | | | | SERVICES, [...] is appropriate. | LABORATORY | | Page [phone] or [phone] with questions. Thank you. | KAREEM FINCH | + + + + + + + + | Performing | Address | City/State/Zipcode | Phone Number | | Organization | | | | + + + + + | [facility] | [address] | [place] [address] | | | KAREEM FINCH | DANI [...] | 3.50 - 10.80 K/cu mm | [facility] | | | | | SERVICES CORE | + + + + + | RED CELL COUNT | 3.23 (L) | 4.50 - 6.00 M/cu mm | [facility] | | | | | SERVICES, [...] (L) | 9.7 - 12.3 fL | [facility] | | | | | SERVICES, CORE | + + + + + | NRBC% | 0.0 | 0.0 - 0.3 % | [facility] | | | | | SERVICES, CORE | + + + + + | NRBC# | 0.00 | 0.00 - 0.02 K/cu mm | [facility] | | | | | SERVICES, [...] [facility] | [address] | [place] [address] | | | KAREEM FINCH | DANI [...] >60 mL/min | [facility] | | NIUEAN | | | SERVICES, CORE | + + + + + | EGFR NON | 31 (L) | >60 mL/min | [facility] | | -NIUEAN | | | SERVICES, CORE | + [...] + + | [facility] | [address] [address] | [place] [address] | | | SERVICES, CORE | DANI [...] + | ECG IMPRESSION | Borderline prolonged AL | | [facility] | | [...] DEPT OF | [address] | [place], [place] | | | CARDIOLOGY | [address] | [address] | | + + + + + MAGNESIUM, PLASMA (06/12/2018 10:24 PM) + +-------+ + + | Component | Value | Ref Range | Performed At | + +-------+ + + | MAGNESIUM,PLASMA | 1.8 | 1.6 - 2.6 mg/dL | [facility] | | | | | SERVICES, [...] | + + + + + | [facility] | [address] | [place] [address] | | | SERVICES, CORE | [address] | | | + + + + + CONFIRMATORY ABO/RH (06/12/2018 10:23 PM) + + + + + | Component | Value | Ref Range | Performed At | + + + + + | [facility] | A | | [facility] | | | | | SERVICES, [...] [facility] | [address] | [place] [address] | | | SERVICES, | [address] | | | | TRANSFUSION MEDICINE | | | | + + + + + ANTIBODY SCREEN (06/12/2018 10:23 PM) + + + + + | Component | Value | Ref Range | Performed At | + + + + + | Antibody Screen | Negative | | [facility] | | | | | SERVICES, [...] | + + + + + | [facility] | [address] | [place] [address] | | | SERVICES, | [address] [...] | + + + + + | [facility] | [address] | [place] [address] | | | SERVICES, | [address] [...] | + + + + + | [facility] | [address] | [place] [address] | | | SERVICES, CORE | [address] | | | + + + + + PROCEDURE NOTE (06/12/2018 2:57 PM) + + + | Narrative | Performed At | + + + | Sandoval Hyde MD 06/17/2018 2:15 PM Date of Service: | | | 08/01/2015 Attending Surgeon: Sandoval Hyde MD | | | Messaging Architect(s): mesfin thompson MD Preoperative Diagnosis: 1. 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 Postoperative Diagnosis: | | | same Procedures Performed: 1. Right knee arthrotomy with | | | drainage for infection and polyethylene exchange 2. Application | | | TINO disposible negative pressure wound therapy dressing right knee | | | [id number] Anesthesia: General endotracheal anesthesia. | | | Implants: excahgned marialuisa triathalon poly size 15, 13mm EBL: 50 | | | Complications: None Specimens: 6 cultures, 1 path | | | Indication For Procedure: Solo Alves was transferred to [facility] for | | | sepsis after previosuly [...] | | | Sandoval Hyde MD, MPH [facility], Dept. of Orthopaedics | | | [address] | | | [facility] [place] [address] | | | [email or web address] | | + + + CULTURE, TISSUE-PROSTHETIC [...] | + + + + + | [facility] - | [address] | [place] [address] | | | [place] | | | | + + + + + SURGICAL PATHOLOGY (06/12/2018 1:53 PM) + + + + + | Component | Value | Ref Range | Performed At | + + + + + | Clinical History | RIGHT KNEE PROSTHETIC | | [facility] | | | JOINT INFECTION | | OF PATHOLOGY | + + + + + | Final Pathologic | A. Soft tissue, right | | [facility] | | Diagnosis | knee, biopsy: [...] | Received are 2 specimens | | [facility] | | | fresh in containers | | OF PATHOLOGY | | | labeled with the | | | | | patient's name (initials | | | | | GR) and medical record | | | | | number [id number].A. Knee, | | | | | right [...] | ANCILLARY | Analyte specific | | [facility] | | INFORMATION | reagents are [...] | | | | | determined by [facility] | | | | | laboratories. It [...] | + + + + + | [facility] | [address] | [place] [address] | | | PATHOLOGY | [address] [...] | + + + + + | [facility] - | [address] | [place] [address] | | | [place] | | | | + + + + + CULTURE, BLOOD BACTI & YEAST [facility] (06/11/2018 10:29 PM)Only the most recent of 2 results wi thin the time period is included. + + + + + | Component | Value | Ref Range | Performed At | + + + + + | CULTURE RESULT | Final Report:No Bacteria | | [facility] | | | or Yeast isolated [...] | + + + + + | [facility] | [address] | [place] [address] | | | STEF, KAREEM | [address]ANI [...] [facility] | [address] | [place] [address] | | | AKREEM FINCH | [address] | | | + + + + + RAINBOW HOLD TUBE - BLUE TOP (06/11/2018 6:12 PM) + + | Specimen | + + | Blood | + + + + + + + | Performing | Address | City/State/Zipcode | Phone Number | | Organization | | | | + + + + + | [facility] | [address] | [place] [address] | | | SERVICES, CORE | [address] | | | + + + + + BLOOD BANK HOLD TUBE - DON T PROCESS (06/11/2018 6:12 PM) + + + + + | Component | Value | Ref Range | Performed At | + + + + + | SPECIMEN COLLECTED, | Sample received with | | [facility] | | HELD | adeq label/volume [...] [facility] | [address] | [place] [address] | | | SERVICES, | [address] | | | | TRANSFUSION MEDICINE | | | | + + + + + C-REACTIVE PROTEIN (06/11/2018 6:12 PM) + + + + + | Component | Value | Ref Range | Performed At | + + + + + | C-REACTIVE PROTEIN | 143.0 (H) | <10.0 mg/L | [facility] | | | | | SERVICES, [...] + + + + + | [facility] | [address] [facility] | [place] [address] | | | SERVICES, KAREEM | [address] | | | + + + + + APTT (ACT. PART. THROMBO TIME) (06/11/2018 6:12 PM) + + + + + | Component | Value | Ref Range | Performed At | + + + + + | APTT | 36.5 (H) | 26.0 - 36.0 seconds | [facility] | | | | | SERVICES, [...] + + | [facility] | [address] [facility] [address] | [place] [address] | | | KAREEM FINCH | [address] [...] | + + + + + | [facility] | [address] [address] | [place] [address] | | | SERVICES, CORE | [address] | | | + + + + + ED INFORMATION EXCHANGE (06/11/2018 6:04 PM) + + + | Narrative | Performed At | + + + | [id number] This patient has registered at the [place] | [facility] | | [facility] Emergency Department For more | MEDICAL | | information visit: | TECH[employer]OLOGIES | | [email or web address] | | | 35ffec Security Events No [...] | | facilities for additional information. 2018 [facility] | | | [employer]. [place], [place] - | | | | | + + + + + | Procedure Note | + + | Service Account, Rtf Results Inbound - 06/11/2018 6:06 PM PDT Formatting of this | | note may be different from the original.[id number] patient has | | registered at the [facility] Emergency Department For more | | information visit: | | [email or web address] Security | | EventsNo recent Security Events currently on fileED Care GuidelinesThere are currently | | no ED Care Guidelines in DANI[place] for this patient. Please check your facility's medical | | records system.Recent Emergency Department Visit SummaryAdmit Date Facility [facility] | | Type Major Type Diagnoses or Chief Complaint Jun 11, 2018 [facility] | | [facility]. [place] Emergency Emergency 10,800. REF Recent Inpatient Visit | | SummaryNo recorded inpatient visits. E.D. Visit Count (12 mo.)Facility Visits [place] | | [facility] 1 Total [...] | aforementioned facilities for additional information. 2018 [employer] | | [employer]. - [place], [place] - [email or web address] | |Facility Visits | |[facility] [...] aforementioned facilities for additional information. | |2018 [employer]. - [place], [place] - [email or web address] | + + + + + + + | Performing | Address | City/State/Zipcode | Phone Number | | Organization | | | | + + + + + | [employer] | [address], | [place], [place] | [phone] | | [employer] | [address] | [address] | | + + + + + [...] | re | [address] | [place] [address] | | | B | | | [...] | Self | [birth year] Home: | [address] | | | al/Fam | | 1940 | [phone] | [place] [address] | | | afshan | | | [address] | | + +--------+ +--------+ + +
--- OUTSIDE RECORDS SUMMARY | ~2018-07-13 | XMS | Encounter Summary ---
Demographics + + + | Address | [address] | | | [place] [address] | + + + | Home Phone [...] Providers + +------+ + | Care Process Worker Name | Role | Phone | [...] | Floor [address] | [facility] | home post DC from | | | | [facility] | [place], [place] | [facility]); | | | | Mailcode: [id number] | [address] | Infectious disease | | | | [facility] [place] | | | | | | [place], [place] | | | | | | [address] | | | | | | [phone] | | | +--------+ + + + [...] Rd | | | | | | [facility] [place] | | | | | | [address] | | | | | | [phone] | | | | | | | | +--------+ + + + + | 07/15/ | Office | Infectious Disease | Abril Shields, | | | 2017 | Visit | | MD Roslyn Jerome | | | | | | [address] | | | | | | [place], [place] | | | | | | [address] | | | | | | [phone] | | | | | | | | +--------+ + + + + as of this encounter Visit Diagnoses Not on filein this encounter"
--- OUTSIDE RECORDS SUMMARY | ~2018-07-13 | XMS | Encounter Summary ---
Demographics + + + | Address | [address] | | | [place] [address] | + + + | Home Phone [...] Providers + +------+ + | Care Inspector Elevators Name | Role | Phone | + [...] | Floor [address] | [facility] | | | | | [facility] | [place], [place] | | | | | Mailcode: [id number] | [address] | | | | | [facility] [place] | [phone] | | | | | [place], [place] | | | | | | [address] | | | | | | [phone] | | | +--------+ + + + [...] | | 2017 | | | [address] [facility] | | | | | | [address] | | | | | | [place], [place] | | | | | | [address] | | | | | | [phone] | | | | | | | | +--------+ + + + + | 07/15/ | Office | Infectious Disease | Abril Shields, | | | 2017 | Visit | | [address] | | | | | | [address] | | | | | | [place], [place] | | | | | | [address] | | | | | | [phone] | | | | | | | | +--------+ + + + + as of this encounter Visit Diagnoses Not on filein this encounter"
--- OUTSIDE RECORDS SUMMARY | ~2018-07-13 | XMS | Encounter Summary ---
Demographics + + + | Address | [address] | | | [place] [address] | + + + | Home Phone [...] Team Providers + +------+ + | Care Asset Manager Name | Role | Phone | [...] | Floor [address] | [facility] | disease | | | | [facility] | [place], [place] | | | | | Mailcode: L457 | [address] | | | | | [facility] | | | | | | [place], [place] | | | | | | [address] | | | | | | [phone] | | | +--------+ + + + [...] Rd | | | | | | [place], [place] | | | | | | [address] | | | | | | [phone] | | | | | | | | +--------+ + + + + | 07/15/ | Office | Infectious Disease | Abril Shields, | | | 2017 | Visit | | MD Roslyn Jerome | | | | | | [address] | | | | | | [place], [place] | | | | | | [address] | | | | | | [phone] | | | | | | | | +--------+ + + + + as of this encounter Visit Diagnoses Not on filein this encounter"
[~2018-07-13 22:14] MED LIST changes: +ADVAIR 250-501 EACH INH; +CEFAZOLIN2 GM/20 M1 IV; +COREG12.5 MG PO; +COZAAR50 MG PO; +DAILY MULTIPLE1 EACH PO; +DEMADEX20 MG PO; +DULCOLAX10 MG PR; +FLONASE ALLERG9.9 ML NAS; +FOLIC ACID0.4 MG PO; +ISOSORBIDE MONO60 MG PO; +KLOR-CON M1010 MEQ PO; +LOSARTAN POTASS50 MG PO; +MAG-OXIDE400 MG PO; +METHOTREXATE2.5 MG PO; +METOPROLOL SUCC25 MG PO; +MIRALAX17 GM PO; +NIACIN500 M3 PO; +SENNA-DOCUSATE1 EAC1 PO; +TYLENOL WITH C1 EACH PO; +WARFARIN SODIUM5 MG PO
--- OUTSIDE RECORDS SUMMARY | 2018-07-13 22:18 | XMS ---
PreManage Notification: JÚNIOR ARREOLA Security Shipping Specialist Events No recent Security Events currently on file CRITERIA MET - [facility] - 2 Visits in 30 Days CARE PROVIDERS GILMA CULVER [facility] 07/03/2018-Current PHONE: [phone] Jameson Christopher MD Primary Care Current PHONE: Unknown tomeka Case or Programmer Analyst Current PHONE: Unknown Glenna has no Care Guidelines for this patient. E.D. VISIT COUNT (12 MO.) 1 [facility] 2 MARVIN Serrano TOTAL 3 NOTE: Visits indicate total known visits. ED/UCC VISIT TRACKING (12 MO.) 07/13/2018 22:14 [facility] [place] TYPE: Emergency COMPLAINT: - PIKE PROBLEM 07/02/2018 11:49 [facility] [place] TYPE: Emergency COMPLAINT: - BLOOD SUGAR PROBLEM 06/11/2018 18:18 [facility] TYPE: Emergency DIAGNOSES: 23312. REF [id number]. Pyogenic arthritis, unspecified INPATIENT VISIT TRACKING (12 MO.) 06/11/2018 18:18 [facility] TYPE: Inpatient DIAGNOSES: 55653. Pyogenic arthritis, unspecified 74905. Infection and inflammatory reaction due to internal right knee prosthesis, subsequent encounter [email or web address]
== END 2018-07-13 22:56 | disposition home or self-care (01) ==
LOC: ED 22:14
DX: T82.898A Other specified complication of vascular prosthetic devices, implants and grafts, initial encounter (principal); E11.9 Type 2 diabetes mellitus without complications; I11.0 Hypertensive heart disease with heart failure; I50.9 Heart failure, unspecified; Z88.2 Allergy status to sulfonamides; Z79.899 Other long term (current) drug therapy
CPT/HCPCS: 99283

== ENCOUNTER 2020-06-19 18:28 | Emergency (ER) | payer MEDICARE, OTHER ==
[~2020-06-19] VITALS: Ht 170.2 cm; Wt 88.3 kg
--- OUTSIDE RECORDS SUMMARY | ~2020-06-19 | XMS | Encounter Summary ---
Demographics + + + | Address | [address] | | | [place] [address] | + + + | Home Phone | | + + + | Preferred Language | Unknown | + + + | Marital Status | Unknown | + + + | Restorationist Affiliation | PRO | + + + | Race | White | + + + | Ethnic Group | Not or | + + + Author + + + | Author | [facility] | + + + | Organization | [facility] | + + + | Address | Unknown | + + + | Phone | Unavailable | + + + Support + + +---------+ + | Name | Relationship | Address | Phone | + + +---------+ + | Beth Mas | ECON | Unknown | | + + +---------+ + Care Team Providers + +------+ + | Care Roll Forming Machine Set Up Mechanic Name | Role | Phone | + +------+ + | Gilberto Estrada MD | PCP | | + +------+ + Encounter Details +--------+ + + + + | Date | Type | Department | Care Team | Description | +--------+ + + + + | 07/21/ | Documentati | Infectious | Abril Shields, | | | 2018 | on | Diseases at [facility] | [address] | | | | | [address] | [address] | | | | | Loop Physician[facility] | [place], [place] | | | | | [place], [facility] floor | [address] | | | | | [place], [place] | [phone] | | | | | [address] | | | | | | [phone] | | | +--------+ + + + [...]
--- OUTSIDE RECORDS SUMMARY | ~2020-06-19 | XMS | Encounter Summary ---
Demographics + + + | Address | [address] | | | [place] [address] | + + + | Home Phone | | + + + | Preferred Language | Unknown | + + + | Marital Status | | + + + | Restoration Affiliation | 1077 | + + + | Race | White | + + + | Ethnic Group | Not or | + + + Author + + + | Author | [facility] | | | and [place] | + + + | Organization | [facility] | | [...] Team Providers + +------+ + | Care Judicial Clerk Name | Role | Phone | + +------+ + | Erin Forrester MD | PCP | | + +------+ + Encounter Details +--------+ + + + + | Date | Type | Department | Care Team | Description | +--------+ + + + + | 12/06/ | Orders Only | [facility] | Conversion | | | 2017 | | CARDIOLOGY [facility] | Transaction, | | | | | [address] | Provider Unknown | | | | | [place] | [phone] | | | | | [address] | | | | | | [phone] | | | +--------+ + + + [...] | +--------+ + + + + | 06/21/ | Procedure | Cardiology | | | [...] + + | MAGNESIUM | Routin | 12/06/2016 | | Results for this | | | e | 9:53 AM | | procedure are in the | | | | PST | | results section. | + +--------+ + + + | COMPREHENSIVE | Routin | 12/06/2016 | | Results for this | | METABOLIC PANEL | e | 9:53 AM | | procedure are in the | | | | PST | | results section. | + +--------+ + + + documented in this encounter Results Magnesium (12/06/2016 9:53 AM PST) + +-------+ + + + | Component | Value | Ref Range | Performed | Pathologist | | | | | At | Signature | + +-------+ + + + | Magnesium | 1.7 | 1.7 - 2.5 mg/dL | EXTERNAL | | | | [...] + +---------+ + + Comprehensive Metabolic Panel (12/06/2016 9:53 AM PST) + + + + + + | Component | Value | Ref Range | Performed | Pathologist | | | | | At | Signature | + + + + + + | Glucose, | 114 (A) | 70 - 100 mg/dL | EXTERNAL | | | Fasting | | | LAB | | + + + + + + | BUN | 36 (A) | 6 - 23 mg/dL | EXTERNAL | | | | | | LAB | | + + + + + + | Creatinine | 1.36 (A) | 0.70 - 1.18 | EXTERNAL | | | | | mg/dL | LAB | | + + + + + + | BUN/Creatin | 26.5 | 6.0 - 28.6 | EXTERNAL | | | ine Ratio | | | LAB | | + + + + + + | Calcium | 9.0 | 8.4 - 10.2 | EXTERNAL | | | | | mg/dL | LAB | | + + + + + + | Protein, | 6.8 | 6.0 - 8.0 g/dL | EXTERNAL | | | Total | | | LAB | | + + + + + + | Albumin | 4.0 | 3.5 - 5.0 | EXTERNAL | | | | | | LAB | | + + + + + + | Globulin | 2.8 | 1.8 - 3.5 | EXTERNAL | | | | | | LAB | | + + + + + + | A/G Ratio | 1.4 | 1.1 - 2.4 | EXTERNAL | | | | | | LAB | | + + + + + + | Bilirubin | 0.9 | 0.0 - 1.2 mg/dL | EXTERNAL | | | Total | | | LAB | | + + + + + + | ALP, | 46 | 31 - 120 | EXTERNAL | | | External | | | LAB | | + + + + + + | ALT | 17 | 7 - 52 U/L | EXTERNAL | | | | | | LAB | | + + + + + + | AST | 19 | 13 - 39 U/L | EXTERNAL [...] + + + + | Cl | 97 | 95 - 112 mmol/L | EXTERNAL | | | | | | LAB | | + + + + + + | CO2 | 34 (A) | 19 - 31 mmol/L | EXTERNAL | | | | | | LAB | | + + + + + + | Anion Gap | 13.8 | 7 - 21 mmol/L | EXTERNAL | | | | | | LAB | | + + + + + + | Estimated | 51 (A) | 60 mg/dL | EXTERNAL | [...]
--- OUTSIDE RECORDS SUMMARY | ~2020-06-19 | XMS | Encounter Summary ---
Demographics + + + | Address | [address] | | | [place] [address] | + + + | Home Phone | | + + + | Preferred Language | Unknown | + + + | Marital Status | | + + + | Restorationism Affiliation | 1077 | + + + | Race | White | + + + | Ethnic Group | Not or | + + + Author + + + | Author | [facility] | | | and [place] | + + + | Organization | [facility] | | [...] Team Providers + +------+ + | Care Service Parts Coordinator Name | Role | Phone | + +------+ + | Erin Forrester MD | PCP | | + +------+ + Encounter Details +--------+ + + + + | Date | Type | Department | Care Team | Description | +--------+ + + + + | 11/18/ | Orders Only | [facility] | Mikal Calix MD | | | 2019 | | [address] | [address] [facility] | | | | | [address] | [address] [facility] | | | | | [address] | [address] | | | | | [phone] | | | +--------+ + + + [...] + + | PROTEIN/CREATININE | Routin | 11/18/2018 | | Results for this | | RATIO, URINE | e | 8:01 AM | | procedure are in the | | | | PST | | results section. | + +--------+ + + + | PROTEIN, URINE, | Routin | 11/18/2018 | | Results for this | | RANDOM | e | 8:01 AM | | procedure are in the | | | | PST | | results section. | + +--------+ + + + | CREATININE, URINE, | Routin | 11/18/2018 | | Results for this | | RANDOM | e | 8:01 AM | | procedure are in the | | | | PST | | results section. | + +--------+ + + + | URINALYSIS WITH | Routin | 11/18/2018 | | Results for this | | MICROSCOPIC IF | e | 8:00 AM | | procedure are in the | | INDICATED | | PST | | results section. | + +--------+ + + + | EXTERNAL LAB: CBC | Routin | 11/18/2018 | | Results for this | | | e | 7:57 AM | | procedure are in the | | | | PST | | results section. | + +--------+ + + + | PARATHYROID HORMONE, | Routin | 11/18/2018 | | Results for this | | INTACT | e | 7:57 AM | | procedure are in the | | | | PST | | results section. | + +--------+ + + + | MAGNESIUM | Routin | 11/18/2018 | | Results for this | | | e | 7:57 AM | | procedure are in the | | | | PST | | results section. | + +--------+ + + + | RENAL FUNCTION PANEL | Routin | 11/18/2018 | | Results for this | | | e | 7:57 AM | | procedure are in the | | | | PST | | results section. | + +--------+ + + + documented in this encounter Results Protein/Creatinine Ratio, Urine (11/18/2018 8:01 AM PST) + +-------+ + + + | Component | Value | Ref Range | Performed | Pathologist | | | | | At | Signature | + +-------+ + + + | Protein/Cre | 0.200 | | EXTERNAL | | | at Ratio | | | LAB | | + +-------+ + + + + + | Specimen | + + | Urine specimen | | (specimen) | + + + +---------+ + + | Performing | Address | City/State/Zipcode | Phone Number | | Organization | | | | + +---------+ + + | EXTERNAL LAB | | | | + +---------+ + + Protein, Urine, Random (11/18/2018 8:01 AM PST) + + + + + + | Component | Value | Ref Range | Performed | Pathologist | | | | | At | Signature | + + + + + + | Protein, | 11Comment: NO NORMAL | mg/dL | EXTERNAL | | | Urine | RANGE ESTABLISHED | | LAB | | + + + + + + + + | Specimen | + + | | + + + +---------+ + + | Performing | Address | City/State/Zipcode | Phone Number | | Organization | | | | + +---------+ + + | EXTERNAL LAB | | | | + +---------+ + + Creatinine, Urine, Random (11/18/2018 8:01 AM PST) + + + + + + | Component | Value | Ref Range | Performed | Pathologist | | | | | At | Signature | + + + + + + | Creatinine, | 55.0Comment: NO NORMAL | mg/dL | EXTERNAL | | | Urine | RANGE ESTABLISHED | | LAB | | + + + + + + + + | Specimen | + + | | + + + +---------+ + + | Performing | Address | City/State/Zipcode | Phone Number | | Organization | | | | + +---------+ + + | EXTERNAL LAB | | | | + +---------+ + + Urinalysis with Microscopic if Indicated (11/18/2018 8:00 AM PST) + + + + + + | Component | Value | Ref Range | Performed | Pathologist | | | | | At | Signature | + + + + + + | Color | YELLOW | | EXTERNAL | | | | | | LAB | | + + + + + + | Clarity, | CLEAR | | EXTERNAL | | | Urine | | | LAB | | + + + + + + | Specific | 1.009 | 1.002 - 1.030 | EXTERNAL | | | [place], | | | LAB | | | Urine | | | | | + + + + + + | Leukocyte | NEGATIVEComment: | | EXTERNAL | | | Esterase, | | | LAB | | | Urine | | | | | + + + + + + | Nitrite, | NEGATIVE | | EXTERNAL | | | Urine | | | LAB | | + + + + + + | Urobilinoge | NORMAL | mg/dL | EXTERNAL | | | n, Urine | | | LAB | | + + + + + + | Protein, | NEGATIVE | mg/dL | EXTERNAL | | | Urine | | | LAB | | + + + + + + | pH, Urine | 5.0 | 5.0 - 8.0 | EXTERNAL | | | | | | LAB | | + + + + + + | Blood, | NEGATIVE | | EXTERNAL | | | Urine | | | LAB | | + + + + + + | Ketones | NEGATIVE | mg/dL | EXTERNAL | | | | | | LAB | | + + + + + + | Bilirubin, | NEGATIVE | | EXTERNAL | | | Urine | | | LAB | | + + + + + + | Glucose, | 50 (A) | mg/dL | EXTERNAL | | | Urine | [...] + +---------+ + + External Lab: CBC (11/18/2018 7:57 AM PST) + + + + + + | Component | Value | Ref Range | Performed | Pathologist | | | | | At | Signature | + + + + + + | WBC | 7.32 | 3.80 - 11.00 | EXTERNAL | | | | | 10*3/uL | LAB | | + + + + + + | Non- | 4.42 | 4.20 - 5.70 | EXTERNAL | | | Red Blood | | 10*6/uL | LAB | | | Cells | | | | | | Counted | | | | | + + + + + + | Hemoglobin | 12.9 (L) | 13.2 - 17.0 | EXTERNAL | | | | | g/dL | LAB | | + + + + + + | Hematocrit, | 39.5 | 39.0 - 50.0 % | EXTERNAL | | | POC | | | LAB | | + + + + + + | MCV | 89.5 | 80.0 - 100.0 fL | EXTERNAL | | | | | | LAB | | + + + + + + | MCH | 29.1 | 27.0 - 34.0 pg | EXTERNAL | | | | | | LAB | | + + + + + + | MCHC | 32.5 | 32.0 - 35.5 | EXTERNAL | | | | | g/dL | LAB | | + + + + + + | RDW-CV | 52.9 | 37 - 53 fL | EXTERNAL | | | | | | LAB | | + + + + + + | Platelet | 154 | 150 - 400 | EXTERNAL | | | Count | | 10*3/uL | LAB | | | Plasma | | | | | + + + + + + | MPV | 8.2 | fL | EXTERNAL | | | | | | LAB | | + + + + + + | Differentia | AUTOMATED | | EXTERNAL | | | l Type | | | LAB | | + + + + + + | % Segmented | 61.07 | % | EXTERNAL | | | | | | LAB | | | Neutrophils | | | | | + + + + + + | % | 24.74 | % | EXTERNAL | | | Lymphocytes | | | LAB | | + + + + + + | % Monocytes | 8.78 | % | EXTERNAL | | | | | | LAB | | + + + + + + | % | 4.67 | % | EXTERNAL | | | Eosinophils | | | LAB | | + + + + + + | % Basophils | 0.74 | % | EXTERNAL | | | | | | LAB | | + + + + + + | Absolute | 4.47 | 1.90 - 7.40 | EXTERNAL | | | Segmented | | 10*3/uL | LAB | | | Neutrophils | | | | | + + + + + + | Absolute | 1.81 | 1.00 - 3.90 | EXTERNAL | | | Lymphocytes | | 10*3/uL | LAB | | + + + + + + | Absolute | 0.64 | 0.00 - 0.80 | EXTERNAL | | | Monocytes | | 10*3/uL | LAB | | + + + + + + | Absolute | 0.34 | 0.00 - 0.50 | EXTERNAL | | | Eosinophils | | 10*3/uL | LAB | | + + + + + + | Absolute | 0.05 | 0.00 - 0.10 | EXTERNAL | | | Basophils | | 10*3/uL | LAB | | + + + + + + + + | Specimen | + + | Blood specimen | | (specimen) | + + + +---------+ + + | Performing | Address | City/State/Zipcode | Phone Number | | Organization | | | | + +---------+ + + | EXTERNAL LAB | | | | + +---------+ + + Parathyroid Hormone, Intact (11/18/2018 7:57 AM PST) + + + + + + | Component | Value | Ref Range | Performed | Pathologist | | | | | At | Signature | + + + + + + | PTH INTACT | 157.6 (H) | 12 - 88 pg/mL | EXTERNAL | | | | | [...] | | | + +---------+ + + Magnesium (11/18/2018 7:57 AM PST) + +-------+ + + + | Component | Value | Ref Range | Performed | Pathologist | | | | | At | Signature | + +-------+ + + + | Magnesium | 2.3 | 1.7 - 2.4 mg/dL | EXTERNAL | | | | [...] | | | + +---------+ + + Renal Function Panel (11/18/2018 7:57 AM PST) + + + + + + | Component | Value | Ref Range | Performed | Pathologist | | | | | At | Signature | + + + + + + | Na | 140 | 135 - 145 | EXTERNAL | | | | | mmol/L | LAB | | + + + + + + | K | 3.9 | 3.5 - 4.9 | EXTERNAL | | | | | mmol/L | LAB | | + + + + + + | Cl | 97 (L) | 99 - 109 mmol/L | EXTERNAL | | | | | | LAB | | + + + + + + | CO2 | 35 (H) | 23 - 32 mmol/L | EXTERNAL | | | | | | LAB | | + + + + + + | Anion Gap | 12 | 5 - 20 mmol/L | EXTERNAL | | | | | | LAB | | + + + + + + | Glucose, | 276 (H) | 65 - 99 mg/dL | EXTERNAL | | | Fasting | | | LAB | | + + + + + + | BUN | 52 (H) | 8 - 25 mg/dL | EXTERNAL | | | | | | LAB | | + + + + + + | Creatinine | 2.8 (H) | 0.70 - 1.30 | EXTERNAL | | | | | mg/dL | LAB | | + + + + + + | Calcium | 8.8 | 8.5 - 10.5 | EXTERNAL | | | | | mg/dL | LAB | | + + + + + + | Albumin | 3.6 | 3.3 - 4.8 g/dL | EXTERNAL | | | | | | LAB | | + + + + + + | PHOSPHORUS | 4.1 | 2.3 - 4.8 mg/dL | EXTERNAL | | | | [...] | | | | using the MDRD IDND | | | | | | traceable [...]
--- OUTSIDE RECORDS SUMMARY | ~2020-06-19 | XMS | Encounter Summary ---
Demographics + + + | Address | [address] | | | [place] [address] | + + + | Home Phone | | + + + | Preferred Language | Unknown | + + + | Marital Status | Unknown | + + + | Quaker Affiliation | PRO | + + + | Race | White | + + + | Ethnic Group | Not or | + + + Author + + + | Author | [facility] | + + + | Organization | [facility] | + + + | Address | Unknown | + + + | Phone | Unavailable | + + + Support + + +---------+ + | Name | Relationship | Address | Phone | + + +---------+ + | Beth Mas | ECON | Unknown | | + + +---------+ + Care Team Providers + +------+ + | Care Senior Scheduler Name | Role | Phone | + +------+ + | Gilberto Estrada MD | PCP | | + +------+ + Encounter Details +--------+ + + + + | Date | Type | Department | Care Team | Description | +--------+ + + + + | 06/12/ | Procedure | [id number] | | | | 2017 | Pass | [facility] | | | | | | [facility] | | | | | [facility] Ad[facility] | | | | | | Desk Located on the | | | | | | 9th floor | | | | | | [place], [place] | | | | | | [address] | | | +--------+ + + + [...]
--- OUTSIDE RECORDS SUMMARY | ~2020-06-19 | XMS | Encounter Summary ---
Demographics + + + | Address | [address] | | | [place] [address] | + + + | Home Phone | | + + + | Preferred Language | Unknown | + + + | Marital Status | Unknown | + + + | Catholic Affiliation | PRO | + + + | Race | White | + + + | Ethnic Group | Not or | + + + Author + + + | Author | [facility] | + + + | Organization | [facility] | + + + | Address | Unknown | + + + | Phone | Unavailable | + + + Support + + +---------+ + | Name | Relationship | Address | Phone | + + +---------+ + | Beth Mas | ECON | Unknown | | + + +---------+ + Care Team Providers + +------+ + | Care Senior Dynamics Crm Developer Name | Role | Phone | + [...] Surgery | 6A Intra Op 3181 | Ghassan Sherman, | RIGHT KNEE I&D, POLY | | 2017 | | [address] | [address] | EXCHANGE MICRO x 7 | | | | Rd [facility] | [place], [place] | PATH x 2 | | | | Hospital Admitting | [address] | | | | | Desk Located on the | [phone] | | | | | 9th floor | | | | | | [place], [place] | | | | | | [address] | | | +--------+---------+ + + + [...] of DVT 10. Coronary artery disease 11. ESUN 12. Gout Procedures: Procedures 1. Right knee washout with polyethylene exchange on 06/12/18 Reason For Admission: Júnior Mas is a 78 y.o. Male with history of CAD (s/p PCI x3, CABG x2) complicated by nursing program chair erich systolic heart failure (EF 45%) due to ICM, sinus node dysfunction s/p pacemaker placeme nt 2016, Afib,HLD, DM2 (a1c 6.2), CKD stage III (baseline Cr ~1.7), ESUN, severe cervical s tenosis, prior DVT, R [...] excellent response. He will continue PT/OT at [facility] swing bed unit. Per orthopedic surgery, stitches [...] breakfast. I-CAPS 280-10-2 mg Cap Generic drug: antiox.mv no.38-tpky6z-wuohwzm4c-lov-pwc Take 1 capsule by mouth once daily. [...] (Non-Steroidal Anti-Inflammatory Drug) Renal Failure Avoid per [employer] recommendations Sulfa (Sulfonamide Antibiotics) Rash Vital Signs [...] information for after-discharge care Discharge Destination IP [facility] . Specialty: Acute Care Hospital Contact information [address] [place] [id number] [place] Location: [facility] swing bed unit Appointments: Dr. Sherman on 07/23/18 at 10:40am. The discharge note was forwarded to the PCP for review. Discharging Physician: Ann Mahmood MD Suggested CPT: 21808 Discharge Management > 30 minute I spent more than 35 minutes benx-bs-scwv with the patient of which 70% was [...] | | 0 | | | | no.09-tenv9v-djahvfa8a-ocu-xey | mouth once daily. | | | [...] this note might be different from wojciech hernandez. Orthopaedic Surgery Progress Note Date: 06/17/2018 Hospital Day: 6 Orthopaedic Attending: Ghassan Sherman MD Diagnosis(es): Right total knee prosthetic joint infection. Orthopaedic Procedure(s) & Date(s): 06/13/2018 1. Right knee arthrotomy with drainage for infection and polyethylene exchange 2. Application TINO disposible negative pressure wound therapy dressing right knee [id number] Subjective: Doing ok overall. No CP/SOB. Tolerating [...] Plan to DC today to SNF in [place]. SNF can pull sutures at 2 weeks from operat kai date (June 27 is 2 weeks post op). Plan to return to Dr. Sherman' clinic 6 weeks an d also have ID clinic visit on that day. Appreciate [facility] and ID help in managing this complex [...] knee at that time. Elias Soriano MD [facility] Department of Orthopaedics and Rehabilitation PGY-1 Pager [phone] Ann Vang MD - 4:42 PM PDT [...] (s/p PCI x3, CABG x2) complicated by nursing program chair erich systolic heart failure (EF 45%) due [...] mg daily Dispo: Anticipate discharge tomorrow to [facility] bed unit if renal function is s table Code status: Full code Diet: Regular diet Prophy: warfarin and heparin Ann Mahmood MD Groundskeeperconsultant internship Clinical Hospitalist and Medicine Teaching Services [facility] Pager [phone] Suggested CPT: 15621 Subsequent Visit Detailed/High complexity 35 min I spent 37 minutes agqu-jy-oxsf with the patient of which 78% was [...] negative pressure wound therapy dressing right knee [id number] Subjective: Doing ok overall. No CP/SOB. Tolerating [...] to home as t ransporting back to [place] may present the patient and family undo hardship. 6. Dressings/Drains: Pulled yesterday? 7. Dispo/Discharge: Anticipate discharge to SNF in next 1-3 days if all criteria met. 8. Follow-up: Please call the clinic to make a follow up appointment in approximately 2 wee ks with ORTHO TRAUMA & FRACTURE, . AP and lateral of R knee at that time. Elias Soriano MD [facility] Department of Orthopaedics and Rehabilitation PGY-1 Pager [phone] atel, Tanvir - 06/16/2018 8:20 AM PDT [...] three and a half hours away from [place]. At this time, we are unsur e of his ability to follow up with an OPAT clinic or if there is a provider near [place], where the patient resides. 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 This patient was staffed [facility] Dr. Villalobos, who agrees with the above assessment and plan unless otherwise documented. Tanvir Ayala, [facility] P SUBJECTIVE Interval Events: No acute events overnight S: patient reports he is feeling well this morning. States he was able to meet with a spring encaser and had decided to go to a [...] knee replacement 2012, and chronic venous insufficien , who was admitted from the ED [...] Intake/Output Summary (Last 24 hours) at 06/15/18 0818 Last data filed at 06/15/18 0646 Gross [...] 72 hours (or 3 results) Recent Labs 06/13/1843506/14/18 0524 06/15/18 0704 WBC 11.11* 12.05* 10.00 HB 11.7* 9.9* 9.5* HCT 35.2* 30.1* 28.8* PLT 136* 186 216 NEUTROPERC -- -- 66.7 LYMPHPERC -- -- 21.4 MONOPERC -- -- 10.5* BASOPERC -- -- 0.2 EOSPERC -- -- 0.7* Chemistries last 72 Hours (or 3 results): Recent Labs 06/12/18 16206/12/18222306/14/18 0524 06/14/18 1800 06/15/18 0704 NA 138 [...] 72 hours (or 3 results) Recent Labs 06/12/18222306/13/186 06/14/18 0524 AST 40 60* 26 ALT [...] Dona Mercado MD Division of Hospital Medicine [facility] Pager [phone] I spent more than 35 minutes mjbr-pj-jzqw with the patient of which greater than 50% was sp ent counseling the patient or in coordination of care. FaheemSisi A IZABELANP - 06/15/2018 7:40 AM PDT Orthopaedic Surgery Progress Note Date: 06/15/2018 Hospital Day: 4 Orthopaedic Attending: Ghassan Sherman MD Diagnosis(es): Right total knee prosthetic joint infection. Orthopaedic Procedure(s) & Date(s): 06/13/2018 1. Right knee arthrotomy with drainage for infection and polyethylene exchange 2. Application TINO disposible negative pressure wound therapy dressing right knee [id number] Subjective: Doing ok overall, not too much pain in right knee. Looking forward to getting playback operator to home, "My wants to get back [...] to home as t ransporting back to [place] may present the patient and family undo hardship. 6. Dressings/Drains: Continue drain 7. Dispo/Discharge: Anticipate discharge to SNF in next 1-3 days if all criteria met. 8. Follow-up: Please call the clinic to make a follow up appointment in approximately 2 wee ks with ORTHO TRAUMA & FRACTURE, . AP and lateral of R knee at that time. JATIN Dent Orthopaedic Trauma Surgery Pager [phone] Stephan Aguirre MD - 06/14/2018 8:59 AM [...] Dona Mercado MD Division of Hospital Medicine [facility] Pager [phone] I spent more than 35 minutes nbgn-ok-qnyt with the patient of which greater than [...] negative pressure wound therapy dressing right knee [id number] Subjective: Pain improving in R knee. Objective: [...] at that time. SEBAS PLEITEZ MD Pager [phone] tephan Mercado M D - 06/13/2018 9:51 AM PDT [...] Hours (or 3 results): Recent Labs 06/12/18 16206/12/18222306/13/18 0436 NA 138 139 136 K 3.6 3.7 4.4 CL 100 100 103 BICARB 34* 33* 25 BUN 30* 28* 27* CR 1.63* 1.55* 1.66* CA 8.6 8.6 8.2* MG -- 1.8 -- PO4 3.7 -- -- Liver panel last 72 hours (or 3 results) Recent Labs 06/12/18162606/12/18222306/13/18 0436 AST 46* 40 60* ALT 57 [...] sinus node dysfunction s/p pacemaker place ment 2016, Afib, HLD, DM2 (a1c 6.2), CKD (baseline Cr ~1.7), SEUN, severe cervical stenosis, hx of DVT 2014 now on chronic AC, R knee OA [...] anticipated date of discharge at this time Andrichard Mercado MD Division of Hospital Medicine [facility] Pager [phone] I spent more than 35 minutes pqcs-fr-ldnv with the patient of which greater than [...] negative pressure wound therapy dressing right knee [id number] Subjective: Painful in R knee today, but [...] at that time. SEBAS PLEITEZ MD Pager [phone] Stephan Aguirre M D - 06/12/2018 1:24 [...] 0.45% IV infusion, 50 mL/hr, intravenous, CONTINUOUS [MAR Hold] dextrose 50 % in water IV 25 mL, 25 mL, intravenous, PRN [MAR Hold] glucagon (GLUCAGEN) injection 1 mg, 1 mg, intramuscular, PRN [MAR Hold] glucose chewable tablet 16 g, 16 [...] anticipated date of discharge at this time Andrichard Mercado MD Division of Hospital Medicine [facility] Pager [phone] I spent more than 35 minutes pdrm-us-aktp with the patient of which greater than [...] Mellitus, Severe Right Knee Oste oarthritis requiring 2013 Total Knee Replacement who has suffered from [...] total arthroplasty. Nika martinez was referred to [facility] for joint revision, and presented emergently to [facility] ED from [facility] ([place], [place]). Prior to presentation patient states that [...] IV (baseline cr 1.8-2.0), has had prior ID, no CVA. For his right lower extremity [...] mild distal inferior-apical ischemia, LVEF 53%. -10/2015 [facility] with 90% ostial first diagonal, 85% ostial second diagonal, occluded stent of proximal RCA with left to right coronary collaterals, Patent SVG to LAD Ischemic Cardiomyopathy c/b Chronic Systolic Heart Failure and Diastolic Heart Failure -10/2015 [facility] with EF 45% and inferiobasal akinesia Obstructive [...] po daily Carvedilol 12.5mg po daily -Y Tennga-3 fatty acid 1,200mg po bid Acetaminophen-codeine po [...] the Social Hx as appropriate. Lives in [place], [place], Greater than 40 PYH tobacco use, [...] 3 results) - Refreshable Recent Labs 06/11/181811 NA 135* K 3.8 CL 99 BICARB 31 BUN 37* EGFRAFRICAN 39* CR 2.01* GLU 199* CA 8.5* 05/20/2018 BMP: CO2 35, cr 1.8, Ca 9.4, phos 2.8 Liver Tests: Last 72 hours (or 3 results) Recent Labs 06/11/181811 AST 49* ALT 65* TBILI 0.7 AP [...] cardiomyopathy and chronic systolic heart failure (2015 E F 45%), Chronic anticoagulation with warfarin after 2013 DVT, Sinus Node Dysfunction s/p 2015 Medtronic Pacemaker Placement, Non-Insulin Dependent Diabetes Mellitus, Severe Right Kn ee Osteoarthritis requiring 2012 Total Knee Replacement who presents to [facility] with septic arthritis of right knee and 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 medicine service with orthopedic sugery service consulting. [...] on going soft tisuse infection. -would consult leather dresser for enhanced nutrition in post-operative period Non-Insulin [...] as unclear why patient was placed on mcc anticoagulation after prior provoked DVT. Dean Ugarte MD Clinical Hospitalist Services [facility] Pager [phone] 06/11/2018 10:44 PM [facility] DEPARTMENT: Hosp ([facility]) - [phone] Place of Service: [facility] [id number] Date of Service: 07/25/2016 [facility] [id number] Modifiers:GC Resident Involved: No Service: PRIMARY HOSPITALIST Suggested CPT: 77378 Initial Visit Comp/High Complexity 70 min I [...] Antibiotics and Frequent lab draws Procedure location: Unit:[facility] Room: 14 Providers: Attending name: Attending physically present: No PICC Nurse name: Frances Fair RN BSN VAT Assisted by Christina March RN BSN VAT Pre-Procedure Consent: written consent obtained Consent given by: Patient Patient identity confirmed per protocol: Yes Team Pause: Immediatly prior to the procedure a pause per protocol was called. A pause veri fies correct patient, procedure, equipment, support team member and site/side marked as required. CLABSI Prevention [...] area Basilic vein. Cat heter lot number: [id number] with a length of 55 cm was [...] Service: 08/01/2015 Attending Surgeon: Ghassan Sherman MD Sap Ppm Consultant(s): mesfin thompson MD Preoperative Diagnosis: 1. right total knee prosthetic joint infection. Postoperative Diagnosis: same Procedures Performed: 1. Right knee arthrotomy with drainage for infection and polyethylene exchange 2. Application TNIO disposible negative pressure wound therapy dressing right knee [id number] Anesthesia: General endotracheal anesthesia. Implants: excahgned alisha triathalon poly size 15, 13mm EBL: 50 Complications: None Specimens: 6 cultures, 1 path Indication For Procedure: Solo Alves was transferred to [facility] for sepsis after previosuly having been treated with a right total knee. He ws medically unstable and transferred to [facility] medical service. An apsirate was positive. [...] Patricia wrap. He was then awoken from [facility] and transported back to the postanesthesia care [...] as it stands. Ghassan Sherman MD, MPH Calculation Reviewer, Dept. of Orthopaedics [address] [place] [address] [email or web address] mented in this encounter Consult Notes [...] patient will need to follow up at [facility] on July 23 with orthopedics. During t hat time,we will cooridnate so that he may follow up with ID/OPAT in regards to his treatmen t. He will be discharged to [facility] to receive inpatient therapy and OPAT. 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 at [facility]. If patient is discharged fr om there, [...] the primary team. This patient was staffed [facility] Dr. Villalobos, who agrees with the above assessment and plan unless otherwise documented. Tanvir Ayala, [facility] P SUBJECTIVE Interval Events: No acute events [...] 07/24/18 to be continued via OPAT at [facility] Microbiology Data: Source Date Results Tissue cultures [...] tablet allopurinol 300 mg oral tablet antiox.mv no.82-nrbr7n-pzixxuw1j-hjw-eit (I-CAPS) 280-10-2 mg oral capsule carvedilol 12.5 [...] oral tablet warfarin 2.5 mg oral tablet ashard Jacob - 06/17 6:54 AM PDT Pharmacy Services: [...] Anticoagulation Clinic/Provider: New PCP Dr. Don Estrada ([phone]) Date INR Warfarin Dose 06/17/2018 1.78 2.5 [...] make recommendations. Please page clinical ph armacist (#[phone]) or call central inpatient pharmacy ([phone]) with questions. Rashard Jacob Pharm. D. Candidate Associated attestation - Mary Wade [facility] - 06/17/2018 11:14 AM PDT--I have reviewed the note written by pharmacy technician assistant Rashard Jacob and I agree with the content and his plan for warfarin on this patient. Thank you, Mary Mauro [facility]. Pager [phone] Wade Mary [facility] - 06/16/2018 1:26 PM PDTFormatting [...] Anticoagulation Clinic/Provider: new PCP Dr. Don Estrada ([phone]) Date INR Warfarin Dose 06/16/2018 1.51 2.5mg [...] make recommendations. Please page clinical ph armacist (#[phone]) or call central inpatient pharmacy ([phone]) with questions. Thank you for consult, Mary Wade [facility]. Pager [phone] Trish Blankenship MD - 10:46 AM PDTAssociated Order(s): IP CONSULT TO INFECTIOUS DISEASESFormatting of thi s note might be different from the original. [facility] Infectious Diseases OPAT Referral for Discharge Planning Team B: OPAT RN Jaye Young, Office: [phone], Pager: [phone] ID Diagnosis: PJI Antibiotic agent and dosing: [...] provider (pt has an ortho appointment 10:40 ) Delineator: For all patients requiring IV antibiotic therapy, please route your OPAT [place] n of Care Note (.CMOPAT) to [facility] "p OPAT/Infectious Diseases clinic" Pool at discharge. Ple ase communicate to primary team that you will be notifying Infectious Diseases of the OPAT P quin of Care. Rashard Prince - 06/15/2018 11:10 AM PDT Pharmacy Services: [...] and make recommendations. Please page clinical pharmacist (#[phone]) or call central inpatient pharmacy ([phone]) with questions. Subjective/Objective: Allergies: Nsaids (non-steroidal anti-inflammatory [...] by his new PCP Don Estrada MD ([phone]). The patient reports Dr Estrada wanted him to stopped warfarin but he was later told by another p herb to restart it recently (patient could not remember which provider had him restart th erapy). Currently unclear whether the patient needs to continue chronic therapy or not, he w ill follow-up with his PCP after discharge Assessment/Plan: Added to top of note Rashard Bell D. 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 We will discuss [facility] OPAT vs outside providers. Formalized recs pending Recommendations were communicated directly to the primary team. This patient was staffed [facility] Dr. Villalobos, who agrees with the above assessment and plan unless otherwise documented. Thank you for the consult, we will follow along with you. Tanvir EVERARDO Ayala P SUBJECTIVE HPI: Júnior Mas is a 78 y.o. gentleman with a past medical history significant for coronary art arvind disease (s/p PCI x3 and 2000 CABG x2) c/b ischemic cardiomyopathy and chronic systolic h eart failure (2015 EF 45%), Chronic anticoagulation with warfarin after 2013 DVT, Sinus Node Dysfunction s/p 09/2016 Medtronic Pacemaker Placement, Non-Insulin Dependent Diabetes Caryli tus, Severe Right Knee Osteoarthritis requiring 2012 Total Knee Replacement , who presented with [...] arthritis. The patient was then transferred from [place] to [facility] for fu rther evaluation. While here, imaging [...] hypertension Past Surgical History: R TKA in 2012 11/2 chronic osteoarthritis Washout on 06/12/2017 Prior Medications: Prescriptions Prior to Admission Medication Sig Dispense Refill acetaminophen-codeine 300-30 mg oral tablet Take 1 tablet by mouth twice daily as neede d for severe pain. allopurinol 300 mg oral tablet Take 300 mg by mouth once daily. antiox. no.10-rqbs1y-hvlrtvi5o-aeg-ped (I-CAPS) 280-10-2 mg oral capsule Take 1 [...] mouth every Friday. Take 1 tablet by mo uth all other days of the week. Current [...] (Non-Steroidal Anti-Inflammatory Drug) Renal Failure Avoid per [employer] recommendations Sulfa (Sulfonamide Antibiotics) Rash Social History [...] Value Date CRP 143.0 06/11/2018 Microbiology Data: 06/12 tissue cultures x 5 positive for staphylococcus [...] couns eling and/or coordination of care. Ishaan Villaloobs MD Division of Infectious DiseasesBarstow, Ramon, PharmD - 06/14/2018 7:36 PM PDT Pharmacy [...] lab draw. - Please page clinical pharmacist (#[phone]) or call central inpatient pharmacy ([phone]) wit h questions. Subjective/Objective: Júnior Mas, a [...] CULTURE, TISSUE-PROSTHETIC JOINT INFECTION AER AND MARIELOS [[id number]] (Abnormal) KP LAB Collec dilcia: 06/12/18 1354 Lab Status: Preliminary result Specimen: Tissue from Knee - right Updated: 06/14/18 1344 CULTURE RESULT LAB Staphylococcus epidermidis (A) Ref Range: Narrative: Culture Report: Staphylococcus epidermidis Gram Stain: No squamous epithelial cells Rare polymorphonuclear cells No organisms seen Thank you, Ramon Mercado, PharmD, [facility] Clinical Pharmacist alickn, Torey Adame rmD - 06/14/2018 11:41 AM [...] and make recommendations. Please page clinical pharmacist (#[phone]) or call central inpatient pharmacy ([phone]) with questions. Subjective/Objective: Júnior Mas, a 78 [...] by his new PCP Don Estrada MD ([phone]). The patient reports Dr Estrada wanted him [...] you for the consult, Evgeny Akers PharmD, [facility] Pager [phone] Evgeny Robles PharmD - 06/13/2018 8:41 AM [...] on stable regimen. Please page clinical pharmacist (#[phone]) or call central inpatient pharmacy ([phone]) with q uestions. Subjective/Objective: Indication: infectious disorder of joint Therapy start date: 06/12/18 Anticipated duration: TBD Goal trough: ~15 mg/L Urine output: unavailable for most of the past 24 hours Renal function: stable , current SCr 1.66 (Baseline SCr 1.6-1.8) Actual body weight: Weight: 86.7 kg (191 lb 1.6 oz) (06/13/18 5668) Pertinent cultures/sensitivities: 06/12/18 blood and tissue cultures - in process Thank you for the consult, Evgeny Akers PharmD, [facility] Pager [phone] Harley Echols MD - 06/11/2018 7:27 PM PDT [facility] [place] DEPARTMENT OF ORTHOPAEDICS & REHABILITATION HISTORY & PHYSICAL EXAMINATION Patient: Júnior Mas Encounter Date: 06/11/2018 Attending Physician: Maral Leon MD HISTORY OF PRESENT ILLNESS: Júnior Mas is a 78 year old male with CHF, gout, CAD with prior ID, DMII, HTN who presents with 2 weeks of progressive right knee pain, stiffness, fevers and malaise. He had his tota l knee arthroplasty done in [address] Hurst at [facility] for advance d DJD. He's had no problems with his knee replacement until 2 weeks ago. Denies any trauma, recent infection, colonoscopy or dental procedure. He has chronic venous stasis with blister formation on the RLE. He denies any pain or complaints elsewhere. He presents as a transfer from an [facility] where there was a concern for a septic prost hetic knee. ESR was 112, CRP 159 and WBC count of 8. An arthrocentesis was performed today w hich demonstrated 78K WBC (95% PMN), 90K RBCs, no crystal and no organisms seen with culture s pending. He was transferred to [facility] for further management of a septic prosthetic knee. Implants: [employer] Triathlon Total Knee System 1. Size 4 [...] consented and added on to the OR ryan edu. Admitted to hospitalist service; keep NPO. PLAN: Disposition: admit to clinical hospitalist service Surgery: yes, I&D with staged revision tomorrow Diet: npo effective now Further Imaging: no additional at this time Supervision: Plan has been discussed with Dr. Leon. Follow up:Please call the clinic to make a follow up appointment in approximately [address] [facility] ORTHO TRAUMA & FRACTURE, The orthopaedics consult pager is #[phone], please call with questions. Harley Weaver MD Resident Department of Orthopaedics Pager [phone] [facility] Department of Orthopaedics & Rehabilitation [phone] [facility] Mail Code: OP31 [facility] [id number] Associated attestation - Ghassan Sherman MD - [...] call me for questions. GHASSAN SHERMAN MD [facility] [phone] [address] [id number] [place] [address] documented in this encounter ED Notes Carla Diaz RN - 06/12/2018 10:50 AM PDTSBAR given to RN in PACU. Carla Carvajal RN - 06/12/2018 9:29 AM P DTMD paged regarding low CBG. 9:2 9 AM Carla Carvajal RN - 06/12/2018 9:05 AM PDTPt given one 4 oz juice. Pt AOx4. Will recheck in 15 mins arla Argueta RN - 06/12/2018 8:58 AM PDTMD scott called back and acknowledged page. No furt her orders. Will get in touch with Ortho to confirm plan of care Carla Carvajal RN - 06/12/2018 8:55 AM PDTMD pa ged regarding plan of care. Carla Carvajal RN - 06/12/2018 7:59 AM PDTI have assumed care of this patient. DAREN Cadet RN Chichi Knott RN - 06/12/2018 7:25 AM PDTI have relinquished care of this patient to Edilma saucedo RN. Huseyin Landrum MD - 06/12/2018 7:04 AM PDTFormatting of this note might be different from the orig inal. IPAS(S) Handoff Note I received sign-out and accepted care of this patient from the departing resident and kirill ding at 7:04 AM. Please see the [...] (H) 0.70 - 1.30 mg/dL EGFR - NAMIBIAN 39 (L) >60 mL/min EGFR NON -NAMIBIAN 32 (L) >60 mL/min SODIUM, PLASMA (LAB) [...] RAVI MD P DT Associated attestation - Dayna Valverde MD - 06/13/2018 10:04 PM Deonte [...] Neuro, Cards/tele and Res p assessment): A&Ox4, 2 right knee pain, VSS, lung sounds clear. [...] documentatio n in the provider SBAR note. Мария Camp RN - 06/11/2018 10:20 PM PDTRN Admission/Transfer Note [...] BILL in OBS unit. report called? yes Chichi Sanchez RN - 06/11/2018 10:10 PM PDTI have assumed care of this patient. I received SBAR report pawan Hsieh RN. Patient transported to unit via stretcher and moved from stretcher to bed wit h 2 assist. Patient oriented to call light and bed controls. Bed in low locked position; marycruz l light within patient reach. Gilma Siegel - 06/11/2018 8:22 PM PDTFormatting of this [...] 95 Temp: 37.1 C 36.7 C Resp: 16 16 SpO2: 97% 96% Gen: NAD, alert and [...] was previously worked up by orthopedic jennifero linda as outpatient who completed labs and arthrocentesis [...] of this patient. Report from Lo Acosta Sandra Mcrae MD - 06/11/2018 6:35 PM PDT ED Individual Provider Note, Sandra Valle MD: HPI Mr. Mas is an 78-yo M w/ hx of CAD, congestive heart failure, non-insulin dependent diabe jed mellitus, hypertension, who p/w right knee pain x 2 weeks associated with fever up to 10 1F. He has a history of a right total knee replacement in 2013 done in [facility]. Right k nee also became more swollen at that time, though without any warmth or redness. Pain worse with any movement and better at rest. He was evaluated by his PCP and started on coumadin for question of DVT, though RLE ultraso und was negative. Seen by Dr. René Yen (orthopedics) in [place] 06/09 with the following labs. 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 Laboratory and imaging results including ESR, CRP were reviewed and interpreted, and notabl e for the following: - significantly elevated ESR and CRP - arthrocentesis at [place] with 79,000 WBCs The patient received the following in the emergency department (including medications, inte rventions, consultations, and reassessments): - orthopedics consultation, plan for OR tomorrow Given this, patient required admission for further care. We spoke to [facility] service, who accepted patient to their [...] Information: Patient discharging to swing bed at [facility] in [facility]. Reviewed DC to SNF AVS with patient and family, all questions answered, reinforced fo llow up appointments per AVS. PICC line in RUE with dressing CDI at discharge. TINO dressing CDI with green light flashing at discharge. Telephone report given to FLY Vanegas at [facility] at 1125. Transportation provided by family in private vehicle. Patient dischar ged in stable condition with all belongings. Discharge Nurse: PADMINI MAGAÑA RN andoff - Galina Varela RN - 06/16/2018 11:09 PM PDTNursing Handoff Patient Daily Goal: rest (06/16/18 0945) Patient Specific Preferences: When asked if pt moves while he is in a recliner, he states " no, once I'm there I stay", education provided on importance of repositioning for pressure i njury prevention even in recliner chair. (06/15/18 0940) [facility] IP NURSE HANDOFF: [facility] hospital course events: [...] njury prevention even in recliner chair. (06/15/18 0768) [facility] IP NURSE HANDOFF: [facility] hospital course events: [...] 1L and 2L. MD restarted torsemide this evening. Mild crackles in [...] bed tomorrow pending renal function lan of Candace Anthony RN - 06/16/2018 2:52 PM PDTProblem: Case Management Goals Goal: Discharge Needs Met Case Management OPAT Plan of Care: [facility] hospital discharge date: 06/17/2018 This patient will be followed for all post hospital OPAT care needs by: [facility] OPAT/[facility], ; IV antibiotic orders were provided to: Other vendor facility, Name: [facility] Sw[facility] ng Bed, , , Attn: Emily or Blue, Vascular Access proce deepthi note faxed to facility Parenteral supportive orders for labs and vascular access care were provided to: Same as yesika lopez Other details pertinent to OPAT Plan of care: n/a Candace Maldonado RN, 06/16/2018 2:52 PM: lan of Fuad Corona Toi Joyelle - 06/16/2018 10:24 AM PDTFormatting of this [...] throughout session other than pt and therapist: rehabilitation tech Current unit: 9k Brief Hospital Course:Júnior Mas [...] with FWW: minimum assist, 15 feet with rehabilitation tech stand by assist and follow ing with wheelchair. Chair to chair transfer front wheeled walker and minimum assist Pt left up in recliner chair, call light/urinal and belongings all in reach. [facility] BASIC MOBILITY Difficulty turning over in bed [...] to do/total assistance - Total/Dependen t Assist [facility] Basic Mobility Total Score 14 Interpretation of [facility] Short Form - Basic Mobility: CMS Modifier [...] care Equipment recommendations: to be determined . Umm Joy, BRICE [id number] andoff - Emily Covarrubias RN - 06/16/2018 [...] njury prevention even in recliner chair. (06/15/18 5809) [facility] IP NURSE HANDOFF: [facility] hospital course events: [...] As evidenced by: Poor intake tonight from 0137-6601 despite encouragement. He states that his water [...] SNF in 1-2 days andoff - Marek Magaña, RN - 06/15/2018 5:43 PM PDTNursing Handoff [...] njury prevention even in recliner chair. (06/15/18 0995) [facility] IP NURSE HANDOFF: [facility] hospital course events: [...] progress walking with PT LAST TIME MOBILIZED: BS around 184 PAIN: T-3 Q6H last at 09. ORDER FOLLOW-UP: - Poor appetite- encourage meals. -meds with applesauce (whole) -ween from oxygen as able -strict I and O -daily weight EDUCATION NEEDS: Ongoing D/C PLAN: TBD - likely to SNF in 1-2 days lan of Care - Umm Joy - 06/15/2018 1:02 PM [...] throughout session other than pt and therapist: rehabilitation tech and student observer Current unit: 9k Brief Hospital Course: Júnior Mas is a [...] cell phone and water all in reach. [facility] BASIC MOBILITY Difficulty turning over in bed [...] to do/total assistance - Total/Dependen t Assist [facility] Basic Mobility Total Score 9 Interpretation of [facility] Short Form - Basic Mobility: CMS Modifier [...] Equipment recommendations: to be determined [place] [id number] andoff - Maria Dolores Gurrola RN - [...] njury prevention even in recliner chair. (06/15/18 5217) [facility] IP NURSE HANDOFF: [facility] hospital course events: [...] at EOB finishing breakfast with family at [facility]. Recliner found and placed in room for [...] nutrient distribution type or amount Nutrition Assessment: cylinder steamer received. Pt does not like food here, [...] intake Following, Ivana Mendez, MS, RD, LD, [facility] Pager #: [phone] Comments: Júnior Mas is a 78 y.o. 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 At change of shift 1529, ordered peaches and m eatloaf- cbg 215. [...] encourage meals. Monitor UOP- no ouput from 6212-1465. [facility] notified- BMS ordered. encourage fluids. MOBILITY: 2pa [...] RN - 06/14/2018 2:13 PM PDTNursing Handoff [place] IP NURSE HANDOFF: [facility] hospital course events: [...] D/C PLAN: lan of Care - Adrianna Lazar PT - 06/14/2018 1:34 PM PDT Physical Therapy Evaluation and Treatment [id number] [facility] Day: 3 Date of : 1940 Start [...] than therapist and pt: patient and son; PABLO eddy sted with mobility portion of session. Consulted/Discussed patient's [...] going down ramp) Vision/Hearing: hearing aids (very [place]; states he refuses hearing aids) Patient / Family Goal: patient will not state; patient : For patient to return home. Language: Hebrew. Barriers: Very [place], not fully attentive. Pain: "lots"; refuses to quantify despite repeated requests from PT. Vital signs: Patient denies dizziness, denies nausea. O2 sats 97% before and after activit y on 1L O2. Cognitive Screen Level of alertness: lethargic. Orientation: Oriented to self, location. Not fully aware of situation. Stated it was Zandra (it's Friday), 1917 later stated 1817. Quality [...] assist after focus on m idline. PT, PRODUCTION STAGE MANAGER and patient encourage patient to get up to a chair, with assistance, patient r efused 4 times. Outcome Measure(s): 5 Time Sit to Stand: unable. >15 seconds predicts recurrent fallers [facility] BASIC MOBILITY Difficulty turning over in bed [...] to do/total assistance - Total/Dependen t Assist [facility] Basic Mobility Total Score 9 Interpretation of [facility] Short Form - Basic Mobility: CMS Modifier [...] underestimate Ended session: Patient supine in bed. PRODUCTION STAGE MANAGER attending to patient. ASSESSMENT: Patient presents s/p [...] goals. Goals discussed and agreed upon with Júnior and family. This patient has good rehabilitation [...] Patient will score 20 >/= 24/24 on AM-PAC Basic Mobility outcomes measure upon discharge. Outcome: [...] Consulted with: patient nurse re: recommendations Adrianna Costello, PT Should this patient discharge from the hospital prior to the next physical therapy treatmen t, this note shall serve as the discharge summary. Gabriel Morales RN - 06/14/2018 2:37 AM PDTNursing Handoff [facility] IP NURSE HANDOFF: [facility] hospital course events: [...] RN - 06/13/2018 1:32 AM PDTNursing Handoff [facility] IP NURSE HANDOFF: [facility] hospital course events: [...] O -daily weight EDUCATION NEEDS: D/C PLAN: andoff - Saige Rivera RN - 06/12/2018 8:36 [facility] Criteria (Stable For Transfer): [...] information: see anesthesia record Functional Epidural: No METAL RIVET MACHINE OPERATOR: No Respiratory: RR: 17, O2 Sat: 98 %, O2 Delivery: Nasal cannula Breath Sounds: WDL Except (SEUN - not diagnosed) TAYLOR: LLL: RUL: RLL: SEUN No Comment: none Cardiac: BP: 113/47 HR: 94 GI: Nausea/Vomiting Status: No Signs/Symptoms: Interventions: Assessment: Comments: toleratingPO : Last void: at 1900 Contact Name: Beth Contact Number: [phone] Family contacted: Yes Comment:updated family Belongings:none in [facility] - Rahel Shaw RN - 06/12/2018 1:22 [...] in the provider note. Sandra Valle MD [facility] ransfer Note - Arnie Busby ANP - 06/11/2018 3:19 PM PDT Call from Dr. Eric Yen, [place] [facility] Pt with hx of CHF with significant fluid retention, right knee replacement, chronic leg ulc ers has infected total knee. Presented to clinic today with right knee swelling and pain. Right knee aspirate today: 79k white cells Markedly elevated CRP and sed rate Temp 99.4, vitals stable and normal Spoke with [facility] orthopedic surgeon Dr. Leon who advised transfer to [facility] ED Pt coming now via POV [facility] Rita Sandhu - 06/11/2018 3:19 PM PDTPt with post procedure infection, R total knee. Connected ref with ROCAEL Sanders. [facility] Rita Barker - 06/11/2018 2:09 PM PDTRef previously consulted [facility] ortho Dr. Maral Leon who advised PT to come to [facility] ED. Advised Dr. Yen to call ED [...] | | results section. | | AND MRAIELOS | | | | | + +--------+ [...] + + + | [facility] | [address] | [place], [place] | | | OP[facility]IA LOZADA OF CARE | [address] | [address] | | | TESTS | | | [...] + + + + + | [facility] | [address] | [place] [address] | | | SERVICES, CORE | [address] | | | + + + [...] | | | LABORATORY | | | NAMIBIAN | | | SERVICES, | | | [...] + + + + + | [facility] | [address] | [place] [address] | | | SERVICES, CORE | [address] | | | + + + [...] [facility] | [address] | [place], [place] | | | OPHELIA LOZADA OF FUAD | [address] | [address] | | | TESTS | | | [...] | [facility] | [address] | [place], [place] | | | [facility] | [address] | [address] | | | TESTS | | | | + + + + + X-RAY PORTABLE CHEST 1 VIEW (06/16/2018 4:29 PM PDT) + + | Specimen | + + | | + + + + + | Narrative | Performed At | + + + | EXAM: VA CHEST 1 VIEW HISTORY: PICC placement. Prosthetic [...] Service Account, Radiant Res In Interface - 06/16/2018 4:44 PM PDT EXAM: VA CHEST 1 | | VIEW HISTORY: PICC [...] draws Procedure location: | | | Unit:9 [facility] Room: 14 Providers: Attending name: Attending | | | physically present: No PICC Nurse name: Frances Fair RN BSN | | | VAT Assisted by Christina March RN BSN VAT Pre-Procedure Consent: | | | written consent obtained Consent given by: Patient Patient | | | identity confirmed per protocol: Yes Team Pause: Immediatly prior to | | | the procedure a pause per protocol was called. A pause verifies | | | correct patient, procedure, equipment, support team member and site/side | | | marked as [...] | area Basilic vein. Catheter lot number: [id number] with a length of 55 | | [...] | [facility] | [address] | [place], [place] | | | [facility] OF CARE | [address] | [address] | | | TESTS | | | [...] + + + + + | [facility] | [address] | [place] [address] | | | SERVICES, CORE | [address] | | | + + + [...] | | | LABORATORY | | | NAMIBIAN | | | SERVICES, | | | [...] + + + + + | [facility] | [address] | [place] [address] | | | SERVICES, CORE | [address] | | | + + + [...] [facility] | [address] | [place], [place] | | | [facility] LO[facility] OF CARE | [address] | [address] | | | TESTS | | | [...] [facility] | [address] | [place], [place] | | | OP[facility] LO[facility] OF CARE | [address] | [address] | | | TESTS | | | [...] (H) | 70 - 99 mg/dL | [facility] - | | | GLUCOSE, | | [...] | [facility] | [address] | [place], [place] | | | [facility] CARE | [address] | [address] | | | TESTS | | | [...] ranges for Lymphocyte % in effect April 09, | [facility] | | 2018. New reference [...] | + + + + + | [facility] | [address] | [place] [address] | | | SERVICES, CORE | [address] | | | + + + [...] | | | LABORATORY | | | NAMIBIAN | | | SERVICES, | | | [...] | + + + + + | [facility] [employer] | [address] | [place] [address] | | | SERVICES, CORE | [address] | | | + + + [...] + | [facility] | [address] | [place] [address] | | | SERVICES, CORE | [address] [...] + | [facility] | [address] | [place] [address] | | | SERVICES, CORE | [address] [...] + + + + + | [facility] | [address] | [place] [address] | | | SERVICES, CORE | [address] [...] + | [facility] | [address] | [place] [address] | | | KAREEM FINCH | [address] | | | + + + [...] | [facility] | [address] | [place], [place] | | | [facility] | [facility] | [address] | | | TESTS | | | [...] | | | LABORATORY | | | NAMIBIAN | | | SERVICES, | | | [...] is appropriate. | LABORATORY | | Page [phone] or call [phone] with questions. Thank you. GFR is | [...] | + + + + + | [facility] [employer] | [address] | [place] [address] | | | SERVICES, CORE | [address] | | | + + + + [...] | + + + + + | [facility] | [address] | [place] [address] | | | SERVICES, KAREEM | [address] | | | + + + [...] is appropriate. | LABORATORY | | Page [phone] or [phone] with questions. Thank you. | SERVICES, CORE | + + + + + + + + | Performing | Address | City/State/Zipcode | Phone Number | | Organization | | | | + + + + + | [facility] | [address] | [place] [address] | | | SERVICES, KAREEM | [address] [...] [facility] | [address] | [place], [place] | | | [facility] LOZADA OF CARE | [address] | [address] | | | TESTS | | | [...] [facility] | [address] | [place], [place] | | | [facility] | [address] | [address] | | | TESTS | | | [...] | + + + + + | [facility] | [address] | [place] [address] | | | SERVICES, CORE | [address] | | | + + + [...] | | | LABORATORY | | | NAMIBIAN | | | SERVICES, | | | [...] + + + + + | [facility] | [address] | [place] [address] | | | KAREEM FINCH | [address] | | | + + + [...] [facility] | [address] | [place], [place] | | | [facility]ARE | [address] | [address] | | | TESTS | | | [...] (H) | 70 - 99 mg/dL | [place] - | | | GLUCOSE, | | [...] | [facility] | [address] | [place], [place] | | | [facility] | [address] | [address] | | | TESTS | | | [...] [facility] | [address] | [place], [place] | | | [facility] OF CARE | [address] | [address] | | | TESTS | | | [...] + + | ECG | Borderline prolonged VA | | [facility] | | | [...] | + + + + + | [facility] | [address] | [place], [place] | | | CARDIOLOGY | [address] | [address] | | + + + + + [...] | | | POC | | | [facility] | | | | | | [...] [facility] | [address] | [place], [place] | | | [facility] | [facility] | [address] | | | TESTS | | | [...] + + + + + | [facility] | [address] | [place] [address] | | | SERVICES, CORE | [address] [...] | | | LABORATORY | | | NAMIBIAN | | | SERVICES, | | | [...] | + + + + + | [facility] [employer] | [address] | [place] [address] | | | SERVICES, CORE | [address] | | | + + + + + MAGNESIUM, PLASMA (06/12/2018 10:24 PM PDT) + +-------+ + + + | Component | Value | Ref Range | Performed | Pathologist | | | | | At | Signature | + +-------+ + + + | MAGNESIUM,P | 1.8 | 1.6 - 2.6 mg/dL | [facility] | | | LASMA | | | [...] | Reference range change effective 06/10/17. | [facility] | | | LABORATORY | | | SERVICES, CORE | + + + + + + + + | Performing | Address | City/State/Zipcode | Phone Number | | Organization | | | | + + + + + | [facility] | [address] | [place] [address] | | | SERVICES, CORE | [address] | | | + + + [...] | | | LABORATORY | | | NAMIBIAN | | | SERVICES, | | | [...] + + + + + | [facility] | [address] | [place] [address] | | | SERVICES, CORE | [address] [...] + | [facility] | [address] | [place] [address] | | | SERVICES, | [address] [...] | + + + + + | [facility] | [address] | [place] [address] | | | SERVICES, | [address] | | | | TRANSFUSION MEDICINE [...] MCHC, PLT, IG% and IG# effective | [facility] | | 03/05/2018 | LABORATORY | | | [facility] | + + + + + + + + | Performing | Address | City/State/Zipcode | Phone Number | | Organization | | | | + + + + + | [facility] | [address] | [place] [address] | | | KAREEM FINCH | [address] | | | + [...] + | [facility] | [address] | [place] [address] | | | SERVICES, | [address] [...] | + + + + + | [facility] | [address] | [place] [address] | | | SERVICES, CORE | [address] | | | + + + [...] (H) | 70 - 99 mg/dL | [facility] - | | | GLUCOSE, | | [...] + + | [facility] | [address] | [place], [place] | | | [facility] | [address] | [address] | | | TESTS | | | [...] | | | LABORATORY | | | NAMIBIAN | | | SERVICES, | | | [...] + + + + + | [facility] | [address] | [place] [address] | | | KAREEM FINCH | [address] | | | + + + [...] | + + + + + | [facility] | [address] | [place] [address] | | | SERVICES, CORE | [address] | | | + + + + + CAPILLARY BLOOD GLUCOSE (NO CHG), POC (06/12/2018 3:40 PM PDT) + +---------+ + + + | Component | Value | Ref Range | Performed | Pathologist | | | | | At | Signature | + +---------+ + + + | BLOOD | 130 (H) | 70 - 99 mg/dL | [facility] - | | | GLUCOSE, | | [...] | [facility] | [address] | [place], [place] | | | [facility] | [address] | [address] | | | TESTS | | | | + + + + + PROCEDURE NOTE (06/12/2018 2:57 PM PDT) + + + | Narrative | Performed At | + + + | Ghassan Sherman MD 06/17/2018 2:15 PM Date of Service: | | | 08/01/2015 Attending Surgeon: Ghassan Sherman MD | | | Sap Ppm Consultant(s): mesfin thompson MD Preoperative Diagnosis: 1. 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 Postoperative Diagnosis: | | | same Procedures Performed: 1. Right knee arthrotomy with | | | drainage for infection and polyethylene exchange 2. Application | | | TINO disposible negative pressure wound therapy dressing right knee | | | [id number] Anesthesia: General endotracheal anesthesia. | | | Implants: excahgned alisha triathalon poly size 15, 13mm EBL: 50 | | | Complications: None Specimens: 6 cultures, 1 path Indication | | | For Procedure: Solo Alves was transferred to [facility] for sepsis | | | after previosuly [...] of the | | | procedure. Ghassan Sherman MD ADDENDUM: (06/17/2018): The | | | date listed above is incorrect. The correct date of surgery was | | | 06/12/2018. The remainder of the operative note is correct as it | | | stands. Ghassan Sherman MD, MPH Calculation Reviewer, Dept. of | | | Orthopaedics [place] [address] [address] | | | [address]. [address] [place] [address] | | | [email or web address] | | + + + CAPILLARY BLOOD [...] [facility] | [address] | [place], [place] | | | [facility] LO[facility] OF CARE | [address] | [address] | | | TESTS | | | [...] | [facility] | [address] | [place], [place] | | | [facility] OF [facility] | [address] | [address] | | | TESTS | | | [...] - | | | | | | [place] | | + + + + + [...] Propionibacterium due to growth of other | [facility] | | organsims. Gram Stain: No squamous epithelial cells Moderate | | | polymorphonuclear cells No organisms seen | | + + + + + + + + | Performing | Address | City/State/Zipcode | Phone Number | | Organization | | | | + + + + + | [facility] | [address] | [place] [address] | | | [place] | | | [...] + | [facility] | [address] | [place] [address] | | | [place] | | | [...] + | [facility] | [address] | [place] [address] | | | [place] | | | [...] + | [facility] | [address] | [place] [address] | | | [place] | | | [...] | + + + + + | [facility] | [address] | [place] [address] | | | [place] | | | [...] Pathology | | | | | | FellowTerjuana Witt MD, | | | | | [...] | | | | | | number [id number]. Knee, | | | | | | right knee r/o | | | | | | infection: Received | | | | | | labeled "right knee rule | | | | | | out infection | | | | | | | | | | | | 1" is a 2.1 x 0.9 x 0.5 | | | | | | cm ho | | | | | | | [...] | + + + + + | [facility] | [address] | [place] [address] | | | PATHOLOGY | [address] [...] - | | | | | | [place] | | + + + + + [...] + | [facility] | [address] | [place] [address] | | | [place] | | | | + + + [...] [facility] | [address] | [place], [place] | | | [facility] OF CARE | [facility] | [address] | | | TESTS | | | [...] [facility] | [address] | [place], [place] | | | [facility] OF CARE | [facility] | [address] | | | TESTS | | | [...] | [facility] | [address] | [place], [place] | | | [facility] | [address] | [address] | | | TESTS | | | | + + + + + CARDIOLOGY (06/12/2018 12:00 AM PDT) + + + | Narrative | Performed At | + + + | | | + + + CULTURE, BLOOD BACTI & YEAST [facility] (06/11/2018 10:29 PM PDT) + + + [...] | + + + + + | [facility] | [address] | [place] [address] | | | SERVICES, CORE | [address] | | | + + + [...] + | [facility] | [address] | [place] [address] | | | STEF, CORE | [address] | | | [...] Note | + + | Service Account, Codi Res In Interface - 06/11/2018 8:31 PM [...] ranges for Lymphocyte % in effect April 09, | [facility] | | 2017. New reference ranges for MCV, MCHC, PLT, [...] | + + + + + | [facility] | [address] | [place] [address] | | | SERVICES, CORE | [address] [...] + + + + + | [facility] | [address] | [place] [address] | | | SERVICES, CORE | [address] | | | + + + [...] | + + + + + | [facility] | [address] | [place] [address] | | | STEF | [address] | | | | TRANSFUSION MEDICINE | [...] | + + + + + | [facility] | [address] | [place] [address] | | | KAREEM FINCH | [address] | | | + + + [...] | | | LABORATORY | | | NAMIBIAN | | | SERVICES, | | | [...] the MDRD equation recommended by the | [facility] | | National Kidney Disease Education Program. [...] + | [facility] | [address] | [place] [address] | | | SERVICES, CORE | [address] | | | + + + + + APTT (ACT. PART. THROMBO TIME) (06/11/2018 6:12 PM PDT) + + + + + + | Component | Value | Ref Range | Performed | Pathologist | | | | | At | Signature | + + + + + + | APTT | 36.5 (H) | 26.0 - 36.0 | [facility] | | | | | seconds | [...] Range: (75 - 120) sec Heparin | SERVICES, CORE | | levels of 0.35 - 0.7 U/mL | | + + + + + + + + | Performing | Address | City/State/Zipcode | Phone Number | | Organization | | | | + + + + + | [facility] | [address] | [place] [address] | | | SERVICES, CORE | [address] [...] (H) | 0.90 - 1.20 INR | [facility] | | | | | | LABORATORY [...] + | [facility] | [address] | [place] [address] | | | SERVICES, CORE | [address] [...] + | [facility] | [address] | [place] [address] | | | SERVICES, CORE | [address] [...] sedimentation rate. | LABORATORY | | | KAREEM FINCH | + + + + + + + + | Performing | Address | City/State/Zipcode | Phone Number | | Organization | | | | + + + + + | [facility] | [address] | [place] [address] | | | SERVICES, KAREEM | [address] | | | + + + + + ED INFORMATION EXCHANGE (06/11/2018 6:04 PM PDT) + + | Specimen | + + | | + + + + + | Narrative | Performed At | + + + | [id number] This patient has registered at the [place] | [facility] | | [facility] Emergency Department For more | MEDICAL | | information visit: | TECHNOLOGIES | | [email or web address] | | | 35ffec Security Events No [...] Chief Complaint Aug | | | 2017 [facility] [place] Emergency | | | Emergency 10,800. REF Recent Inpatient Visit | | | Summary No recorded inpatient visits. E.D. Visit Count (12 mo.) | | | Facility Visits [facility] 1 Total 1 | | | Note: [...] | | facilities for additional information. 2018 [employer] | | | [employer]. - [place], [place] - | | | [email or web address] | | + + + + + | Procedure Note | + + | Service Account, Rtf Results Inbound - 06/11/2018 6:06 PM PDT Formatting of this | | note might be different from the original.DANIEL?NOTIFICATION?06/11/2018 18:04?MAXWELL | | JÚNIOR? patient has registered at the [facility] [employer] | | [place] [facility] For more information visit: | | [email or web address] Security | | EventsNo recent Security Events currently on fileED Care GuidelinesThere are currently | | no ED Care Guidelines in DANIEL for this patient. Please check your facility's medical | | records system.Recent Emergency Department Visit SummaryAdmit Date Facility [facility] State | | Type Major Type Diagnoses or Chief Complaint Jun 11, 2018 [facility] | | [facility] Emergency Emergency 10,800. REF Recent Inpatient Visit | | SummaryNo recorded inpatient visits. E.D. Visit Count (12 mo.)Facility Visits [place] | | [facility] 1 Total 1 Note: Visits indicate total known visits. PDMP | | ReportRx Details (6 Mo.)Fill Date Drug Description Qty. Prescriber CS MED 2018-04-28 | | ACETAMINOPHEN-COD #3 TABLET 60 GILMA ESTRADA MD 3 9 2018-03-02 ACETAMINOPHEN-COD #3 | | TABLET 60 LOLI STEVENS MD 3 9 2018-01-27 ACETAMINOPHEN-COD #3 TABLET 60 LOLI STEVENS, | | 3 9 Rx Summary (12 [...] aforementioned facilities for additional information. ? 2018 [employer] | | [employer]. [facility], [place] - [email or web address] | |Facility Visits | |[facility] 1 | |Total 1 | |Note: Visits [...] facilities for additional information. | |? 2018 [employer] - [place], [place] - [email or web address] | + + + + + + + | Performing | Address | City/State/Zipcode | Phone Number | | Organization | | | | + + + + + | [facility] | [address] | [place], [place] | [phone] | | TECHNOLOGIES | [address] | [address] | | + + + + + [...] 06/11/18 at 2306, | | | Until 06/17/18 at 1718, CBG | | | less than 70 mg/dL if patient | | | unable to take PO, per Adult | | | Hypoglycemia Protocol | | + +---+ | | | + +---+ + +-------+ +---------+---+---+ | fluticasone (FLONASE) 50 [...] mg, intramuscular, | | | NEEDED, Starting Zandra 06/11/18 at | | | 2306, Until Fri06/17/18 at 1718, | | | CBG less than 70 mg/dL per Adult | | | Hypoglycemia Protocol | | + +---+ | | | + +---+ | glucose chewable tablet 16 g | | | 16 g, oral, NEEDED, Starting | | | [facility] 06/11/18 at 2306, Until Wed | | [...] + +---+---+ | | | +---+---+ + +-------+ [...] AM PDT | | | | | 06/12/18 at 2145, Until | | | | [...] +-------+ +--------+---+---+ +---+---+ | | | +---+---+ documented in this encounter
--- OUTSIDE RECORDS SUMMARY | ~2020-06-19 | XMS | Encounter Summary ---
Demographics + + + | Address | [address] | | | [place] [address] | + + + | Home Phone | | + + + | Preferred Language | Unknown | + + + | Marital Status | Unknown | + + + | Buddhist Affiliation | PRO | + + + | Race | White | + + + | Ethnic Group | Not or | + + + Author + + + | Author | [facility] | + + + | Organization | [facility] | + + + | Address | Unknown | + + + | Phone | Unavailable | + + + Support + + +---------+ + | Name | Relationship | Address | Phone | + + +---------+ + | Beth Mas | ECON | Unknown | | + + +---------+ + Care Team Providers + +------+ + | Care Desulfurizer Hand Name | Role | Phone | + +------+ + | Gilberto Estrada MD | PCP | | + +------+ + Reason for Visit + +--------+ + | Reason | Onset | Comments | | | Date | | + +--------+ + | Transitional Care | 06/24/ | OPAT | | Management | 2017 | | + +--------+ + | Infectious disease | 06/24/ | | | | 2018 | | + +--------+ + Encounter Details +--------+ + + + + | Date | Type | Department | Care Team | Description | +--------+ + + + + | 06/24/ | Telephone | Infectious | Jaye Winchester, | Transitional Care | | 2018 | | Diseases at [facility] | RN [address] | Management (OPAT); | | | | [address] | [address] | Infectious disease | | | | [address] | [place], [place] | | | | | [address], [address]rd floor | [address] | | | | | [place], [place] | [phone] | | | | | [address] | | | | | | [phone] | | | +--------+ + + + [...] this encounter Miscellaneous Notes Telephone Encounter - Jaye Winchester RN - 06/24/2018 9:43 AM [facility] check in - Transitional Care Management Note ASSESSMENT Spoke with nurse Aguilera at [facility] at [phone]. Verified fax number: [phone] She stated that infusions of Cefazolin 2gm IV have been administered a s scheduled at 0600/1400/2200. Denies any s/s of complication of infection, PICC problems or medication adverse reactions. PICC dressing change done on Tuesdays and labs drawn on . Confirmed follow up appointment on Next Appointment in [facility] INFECT DIS 3 [facility] is on 07/22/18 at 12:00 pm with Abril Shields MD. Verified patient's OPAT medications are accurately listed in current medication list. I have no concerns at this time. PLAN Continue cefazolin q8hrs. Continue weekly labs and PICC dressing changes. Keep follow up appointment as scheduled with Dr. Shields on 07/22/18. Encouraged nurse to call with any questions or concerns with IV abx or PICC line. She has n esa. Will fax updated lab orders to include CRP to [phone]. NURSING OUTCOME EVALUATION Previous nursing concern(s): no previous concern(s). The primary barriers to care identified are: None I believe this patient's NURSING STABILITY is Moderately Stable. During this encounter, patient/caregiver verbalizes or demonstrates understanding of educat ion provided. PERCENT OF NURSE'S TIME DEDICATED TO PATIENT CARE I spent 50% of time on patient/caregiver education And 50% of time on medication management RESULTS OF NURSING INTERVENTIONS Interventions during this encounter resulted in call completed without provider involvement Jaye Winchester RN [facility] INFECTIOUS DISEASE [facility] INFECTIOUS DISEASES AT [facility] 3RD FLOOR [address] [place] [address] documented in this en counter Plan of Treatment Not on filedocumented as of this encounter Visit Diagnoses Not on filedocumented in this encounter"
--- OUTSIDE RECORDS SUMMARY | ~2020-06-19 | XMS | Encounter Summary ---
Demographics + + + | Address | [address] | | | [place] [address] | + + + | Home Phone | | + + + | Preferred Language | Unknown | + + + | Marital Status | | + + + | Spiritism Affiliation | [phone] | + + + | Race | White | + + + | Ethnic Group | Not or | + + + Author + + + | Author | [facility] | | | and [place] | + + + | Organization | [facility] | | | [...] Team Providers + +------+ + | Care Emergency Manager Name | Role | Phone | + +------+ + PCP | Unavailable | + +------+ + Encounter Details +--------+ + + + + | Date | Type | Department | Care Team | Description | +--------+ + + + + | 09/17/ | Hospital | [facility] | Zay Francis, | | | 1996 - | Encounter | [facility] | [address] | | | | | CARDIAC TELEMETRY | HÉCTOR BROOKS | | | 09/21/ | | [address] | [place] [address] | | | 1998 | | [place] | [phone] | | | | | [address] | | | | | | [phone] | | | +--------+ + + + [...]
--- OUTSIDE RECORDS SUMMARY | ~2020-06-19 | XMS | Encounter Summary ---
Demographics + + + | Address | [address] | | | [place] [address] | + + + | Home Phone [...] Team Providers + +------+ + | Care Booster Station Operator Name | Role | Phone | [...]
--- OUTSIDE RECORDS SUMMARY | ~2020-06-19 | XMS | Encounter Summary ---
Demographics + + + | Address | [address] | | | [place] [address] | + + + | Home Phone | | + + + | Preferred Language | Unknown | + + + | Marital Status | Unknown | + + + | Yarsanism Affiliation | PRO | + + + [...] Team Providers + +------+ + | Care Fretted Instrument Maker Hand Name | Role | Phone | + +------+ + | Gilberto Estrada MD | PCP | | + +------+ + Reason for Visit + + + | Reason | Comments | + + + | RN Care Management | OPAT | + + + | Infectious disease | | + + + Encounter Details +--------+ + + + + | Date | Type | Department | Care Team | Description | +--------+ + + + + | 06/17/ | Documentati | Infectious | Jaye Winchester, | RN Care Management | | 2018 | on | Diseases at [facility] | RN [address] | (OPAT); Infectious | | | | [address] | [address] | disease | | | | [address] | [place], [place] | | | | | Pavilion, 3rd floor | [address] | | | | | [place], [place] | [phone] | | | | | [address] | | | | | | [phone] | | | +--------+ + + + [...] this encounter Miscellaneous Notes Telephone Encounter - Saige Cottrell Ma - 06/24/2018 12:16 PM PDTThis [facility] system of care. Please contact [facility] ID at phone: [phone]; fa x: [phone] with any questions or concerns regarding this patient's infectious disease t reatment plan. elephone Encounter - Cortney Carr, RN - 06/24/2018 10:58 AM Kristen Shields: JOCELYN regarding OPAT appointment. ID MAs: Please add patient to lab list. Cortney Villafana, RN elephone Encounter - Layne Huang - 06/24/2018 9:39 AM PDTAn appointment has been arranged as follows: Next Appointment in [facility] INFECT DIS 3 [facility] is on 07/22/18 at 12:00 pm with Abril Shields MD. Transportation Notes: Scheduled w/ pt's who will help w/ transportation. She stated sh e is fine w/ coming to [place] twice in a week as there were unsuccessful attempts at setti ng up joint appt. Care Coordination issues needing clarification: none when asked. elephone Encounter - Layne Huang - 06/18/2018 4:10 PM PDTDr. Rinkuwilliam only sees pts at [facility] on '. Could a provide r see the pt as a joint on , 07/23? elephone Encounter - Jaye Winchester RN - 06/17/2018 1:05 PM PDTFormatting o f this note might be different from the original. 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, , Fax: Line & Lab Provider: " Line Type: Single-Lumen PICC (Comment: Valved Right Arm Basilic ) Line Placed (date): 06/16/18 Discharge Service: Internal Medicine Discharge Service Provider: Ann Mahmood MD Consult Service: Orthopedic Transport Rn: Sandoval Hyde MD Notes: Follow Up: ID clinic 07/23 with any available provider (pt has an ortho appointment 1 0:40 same day) Special considerations: Cefazolin dose may need to be adjusted based on renal function. Multiple blood cultures from 06/11 tissue from knee on 06/12 pending. All other cultures final. elephone Encounter - Jaye Winchester RN - 06/17/2018 12:21 PM PDTLast ID Consult Recs: Date of Service: 06/17/18 Tanvir Ayala Assessment: Mr. 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 He is now s/p I&D and polyethylene linie r exchange with hardware retention. Clinically, the patient is improving upon administration of IV antibiotics, and will likely require 6 weeks of IV Cefazolin from the date of his I&D (06/12). It was discussed with the patient the possibility of treatment failure given the on e-stage partial revision and retained hardware. At this time, the patient has been cleared for discharge. It was discussed with the family that the patient will need to follow up at [facility] on July 23 with orthopedics. During t hat time,we will cooridnate so that he may follow up with ID/OPAT in regards to his treatmen t. He will be discharged to [facility] to receive inpatient therapy and OPAT. Recommendations: 1. Change Cefazolin 2g IV q8 hours, with renal adjustments as required 2. Tentative duration of Cefazolin will be 6 weeks from the time of surgery (SOT: 06/12 - [place] T: 07/24) 3. Discussed with patient that OPAT can cont. at [facility]. If patient is discharged fr om there, his family is available to administer his abx therapy. 4. Patient has follow up appt on 07/24 with orthopedics. We will plan to coordinate an ID vi sit during that time. 5. Infectious Disease will sign-off at this time. Thank you for the consult. If there any q uestions are concerns, please re-consult as required documented in this en counter Plan of Treatment Not on filedocumented as of this encounter Visit Diagnoses Not on filedocumented in this encounter
--- OUTSIDE RECORDS SUMMARY | ~2020-06-19 | XMS | Encounter Summary ---
Demographics + + + | Address | [address] | | | [place] [address] | + + + | Home Phone [...] + + | Author | [facility] | | | and [place] | + + + | Organization | [facility] | | | and [...] Team Providers + +------+ + | Care Carrier Loader Name | Role | Phone | + +------+ + | Erin Forrester MD | PCP | | + +------+ + Encounter Details +--------+ + + + + | Date | Type | Department | Care Team | Description | +--------+ + + + + | 03/08/ | Orders Only | [facility] | Conversion | | | 2019 | | NEPHROLOGY [facility] | Transaction, | | | | | [address] | Provider Unknown | | | | | [address] | [phone] | | | | | [address] | | | | | | [phone] | | | +--------+ + + + [...] | EXTERNAL LAB: CBC | Routin | 03/08/2019 | | Results for this | | | e | 1:40 PM | | procedure are in the | | | | PDT | | results section. | + +--------+ + + + | PROTEIN/CREATININE | Routin | 03/08/2019 | | Results for this | | RATIO, URINE | e | 1:40 PM | | procedure are in the | | | | PDT | | results section. | + +--------+ + + + | BASIC METABOLIC | Routin | 03/08/2019 | | Results for this | | PANEL | e | 1:40 PM | | procedure are in the | | | | PDT | | results section. | + +--------+ + + + documented in this encounter Results Protein/Creatinine Ratio, Urine (03/08/2019 1:40 PM PDT) + +-------+ + + + | Component | Value | Ref Range | Performed | Pathologist | | | | | At | Signature | + +-------+ + + + | Protein/Cre | 0.212 | 0 - 0.325 | EXTERNAL | | | at Ratio [...] + +---------+ + + External Lab: CBC (03/08/2019 1:40 PM PDT) + + + + + + | Component | Value | Ref Range | Performed | Pathologist | | | | | At | Signature | + + + + + + | WBC | 8.7 | 4.5 - 11.0 10 | EXTERNAL | | | | | | LAB | | + + + + + + | Non- | 4.6 | 4.2 - 6.2 10 | EXTERNAL | | | Red Blood | | | LAB | | | Cells | | | | | | Counted | | | | | + + + + + + | Hemoglobin | 14.1 | 13.5 - 17.5 | EXTERNAL | | | | | g/dL | LAB | | + + + + + + | Hematocrit, | 41.3 | 40.0 - 50.0 % | EXTERNAL | | | POC | | | LAB | | + + + + + + | MCV | 89.8 | 80 - 100 fL | EXTERNAL | | | | | | LAB | | + + + + + + | MCH | 30.7 | 25 - 34 pg | EXTERNAL | | | | | | LAB | | + + + + + + | MCHC | 34.2 | 32.0 - 36.0 | EXTERNAL | | | | | g/dL | LAB | | + + + + + + | Platelet | 127 (A) | 150 - 450 K/ L | EXTERNAL | | | Count | | | LAB | | | Plasma | | | | | + + + + + + | RDW-CV | 17.4 (A) | 11.5 - 15.5 % | EXTERNAL | | | | [...] + + + | % Segmented | 75.3 (A) | 40 - 70 % | EXTERNAL | | | | | | LAB | | | Neutrophils | | | | | + + + + + + | % | 17.3 (A) | 25 - 45 % | EXTERNAL | | | Lymphocytes | | | LAB | | + + + + + + | % Monocytes | 6.4 | 0 - 10 % | EXTERNAL | | | | | | LAB | | + + + + + + | % | 0.7 | 0 - 3 % | EXTERNAL | | | Eosinophils | | | LAB | | + + + + + + | % Basophils | 0.3 | 0 - 3 % | EXTERNAL | | | | | | LAB | | + + + + + + | Absolute | 6.5 | 1.8 - 7.7 / L | EXTERNAL | | | Segmented | | | LAB | | | Neutrophils | | | | | + + + + + + | Absolute | 1.5 | 1.0 - 4.8 / L | EXTERNAL | | | Lymphocytes | | | LAB | | + + + + + + | Absolute | 0.6 | 0.0 - 0.8 / L | EXTERNAL | | | Monocytes | | | LAB | | + + + + + + | Absolute | 0.1 | 0.0 - 0.45 / L | EXTERNAL | | | Eosinophils | | | LAB | | + + + + + + | Absolute | 0.0 | 0.0 - 0.20 / L | EXTERNAL | | | [...] + +---------+ + + Basic Metabolic Panel (03/08/2019 1:40 PM PDT) + + + + + + | Component | Value | Ref Range | Performed | Pathologist | | | | | At | Signature | + + + + + + | Glucose, | 237 (A) | 84 - 110 mg/dL | EXTERNAL | | | Fasting | | | LAB | | + + + + + + | BUN | 39 (A) | 8.4 - 21 mg/dL | EXTERNAL | | | | | | LAB | | + + + + + + | Creatinine | 2.40 (A) | 0.64 - 1.27 | EXTERNAL | | | | | mg/dL | LAB | | + + + + + + | BUN/Creatin | | | EXTERNAL | | | ine Ratio | | | LAB | | + + + + + + | Calcium | 9.3 | 8.4 - 10.8 | EXTERNAL | | | | | mg/dL | LAB | | + + + + + + | Na | 141 | 136 - 145 | EXTERNAL | | | | | mmol/L | LAB | | + + + + + + | K | 3.7 | 3.5 - 4.5 | EXTERNAL | | | | | mmol/L | LAB | | + + + + + + | Cl | 97 (A) | 98 - 107 mmol/L | EXTERNAL | | | | | | LAB | | + + + + + + | CO2 | 33 (A) | 22 - 32 mmol/L | EXTERNAL | | | | | | LAB | | + + + + + + | Anion Gap | 11.0 | 5 - 12 mmol/L | EXTERNAL | | | | | | LAB | | + + + + + + | Estimated | 26 (A) | 60 - 140 mg/dL | EXTERNAL | | | GFR [...]
--- OUTSIDE RECORDS SUMMARY | ~2020-06-19 | XMS | Encounter Summary ---
Demographics + + + | Address | [address] | | | [place] [address] | + + + | Home Phone | | + + + | Preferred Language | Unknown | + + + | Marital Status | | + + + | Rastafari Affiliation | 1077 | + + + [...] Team Providers + +------+ + | Care Band Builder Name | Role | Phone | + +------+ + PCP | Unavailable | + +------+ + Encounter Details +--------+ + + + + | Date | Type | Department | Care Team | Description | +--------+ + + + + | 10/08/ | Hospital | [facility] | Olaf Nicole | | | 1998 - | Encounter | [facility] | MD [address] | | | | | CARDIAC TELEMETRY | [address] | | | 10/09/ | | [address] | [place] [address] | | | 2000 | | [address] | [phone] | | | | | [address] | | | | | | [phone] | | | +--------+ + + + [...]
--- OUTSIDE RECORDS SUMMARY | ~2020-06-19 | XMS | Encounter Summary ---
Demographics + + + | Address | [address] | | | [place] [address] | + + + | Home Phone | | + + + | Preferred Language | Unknown | + + + | Marital Status | | + + + | Caodaism Affiliation | 1077 | + + + | Race | White | + + + | Ethnic Group | Not or | + + + Author + + + | Author | [facility] | | | and [place] | + + + | Organization | [facility] | | | [...] Team Providers + +------+ + | Care Sports Reporter Name | Role | Phone | + [...] 2019 | | [address] | STAFF MINE WARFARE OFFICER [address] | | | | | [address] [address] | [place] | | | | | [address] | [place] | | | | | [phone] | [address] | | | | | | [phone] | | | | | | | [...]
--- OUTSIDE RECORDS SUMMARY | ~2020-06-19 | XMS | Encounter Summary ---
Demographics + + + | Address | [address] | | | [place] [address] | + + + | Home Phone | | + + + | Preferred Language | Unknown | + + + | Marital Status | | + + + | Judaism Affiliation | 1077 | + + + [...] Team Providers + +------+ + | Care Heat Sealing Machine Operator Name | Role | Phone | + +------+ + PCP | Unavailable | + +------+ + Encounter Details +--------+ + + + + | Date | Type | Department | Care Team | Description | +--------+ + + + + | 10/12/ | Hospital | [facility] | Olaf Nicole | | | 1997 - | Encounter | [facility] | MD [address] | | | | | CARDIAC TRANSPLANT | [address] | | | 10/13/ | | [address] | [place] [address] | | | 1999 | | [address] [address] | [phone] | | | | | [address] | | | | | | [phone] | | | +--------+ + + + [...]
--- OUTSIDE RECORDS SUMMARY | ~2020-06-19 | XMS | Encounter Summary ---
Demographics + + + | Address | [address] | | | [place] [address] | + + + | Home Phone | | + + + | Preferred Language | Unknown | + + + | Marital Status | Unknown | + + + | Mormon Affiliation | PRO | + + + | Race | White | + + + | Ethnic Group | Not or | + + + Author + + + | Author | [facility] | + + + | Organization | [facility] | + + + | Address | Unknown | + + + | Phone | Unavailable | + + + Support + + +---------+ + | Name | Relationship | Address | Phone | + + +---------+ + | Beth Mas | ECON | Unknown | | + + +---------+ + Care Team Providers + +------+ + | Care Manufacturing Engineer Name | Role | Phone | [...] | | | | [address] | [place], [place] | chronicity (Primary | | | | [address] | [address] | Dx); Infection | | | | [place], [place] | [phone] | associated with | | | | [address] | | internal right knee | | | | [phone] | | prosthesis, | | | | [...] Ghassan Sherman MD - 07/14/2018 1:25 PM [facility] 06/12/18 Right TKA [...] tknee ap/laterall GHASSAN SHERMAN MD [facility] [place] [address] [place] [address] No orders of the defined [...]
--- OUTSIDE RECORDS SUMMARY | ~2020-06-19 | XMS | Encounter Summary ---
Demographics + + + | Address | [address] | | | [place] [address] | + + + | Home Phone | | + + + | Preferred Language | Unknown | + + + | Marital Status | | + + + | Adventist Affiliation | 1077 | + + + | Race | White | + + + | Ethnic Group | Not or | + + + Author + + + | Author | [facility] | | | and [place] | + + + | Organization | [facility] | | | [...] Team Providers + +------+ + | Care Clinical Provider Trainer Name | Role | Phone | + +------+ + | Erin Forrester MD | PCP | | + +------+ + Encounter Details +--------+ + + + + | Date | Type | Department | Care Team | Description | +--------+ + + + + | 06/08/ | Orders Only | [facility] | Conversion | | | 2019 | | NEPRHOLOGY [place] | Transaction, | | | | | [address] | Provider Unknown | | | | | [address] | [phone] | | | | | [address] | | | | | | [phone] | | | +--------+ + + + [...] | EXTERNAL LAB: CBC | Routin | 06/08/2019 | | Results for this | | | e | 3:33 PM | | procedure are in the | | | | PDT | | results section. | + +--------+ + + + | PROTEIN/CREATININE | Routin | 06/08/2019 | | Results for this | | RATIO, URINE | e | 3:33 PM | | procedure are in the | | | | PDT | | results section. | + +--------+ + + + | URIC ACID | Routin | 06/08/2019 | | Results for this | | | e | 3:33 PM | | procedure are in the | | | | PDT | | results section. | + +--------+ + + + | MAGNESIUM | Routin | 06/08/2019 | | Results for this | | | e | 3:33 PM | | procedure are in the | | | | PDT | | results section. | + +--------+ + + + | RENAL FUNCTION PANEL | Routin | 06/08/2019 | | Results for this | | | e | 3:33 PM | | procedure are in the | | | | PDT | | results section. | + +--------+ + + + documented in this encounter Results Protein/Creatinine Ratio, Urine (06/08/2019 3:33 PM PDT) + +-------+ + + + | Component | Value | Ref Range | Performed | Pathologist | | | | | At | Signature | + +-------+ + + + | Protein/Cre | 121.0 | 0 - 150 | EXTERNAL | | | at Ratio [...] + +---------+ + + External Lab: CBC (06/08/2019 3:33 PM PDT) + + + + + + | Component | Value | Ref Range | Performed | Pathologist | | | | | At | Signature | + + + + + + | WBC | 7.3 | 4.5 - 11.0 10 | EXTERNAL | | | | | | LAB | | + + + + + + | Non- | 4.51 | 4.3 - 5.7 10 | EXTERNAL [...] + + + + | Hematocrit, | 39.4 (A) | 41 - 50 % | EXTERNAL | | | POC | | | LAB | | + + + + + + | MCV | 87.4 | 81 - 99 fL | EXTERNAL | | | | | | LAB | | + + + + + + | MCH | 30 | 27 - 33 pg | EXTERNAL | | | | | | LAB | | + + + + + + | MCHC | 34 | 30 - 36 g/dL | EXTERNAL | | | | | | LAB | | + + + + + + | Platelet | 134 (A) | 140 - 440 K/?L | EXTERNAL | | | Count | | | LAB | | | Plasma | | | | | + + + + + + | RDW-CV | 15.9 (A) | 10.5 - 15.0 % | [...] + + + | % Segmented | 62.4 | 39 - 80 % | EXTERNAL | | | | | | LAB | | | Neutrophils | | | | | + + + + + + | % | 26.0 | 24 - 44 % | EXTERNAL | | | Lymphocytes | | | LAB | | + + + + + + | % Monocytes | 8.7 | 0 - 12 % | EXTERNAL | | | | | | LAB | | + + + + + + | % | 2.4 | 0 - 6 % | EXTERNAL | | | Eosinophils | | | LAB | | + + + + + + | % Basophils | 0.5 | 0 - 2 % | EXTERNAL | | | | | | LAB | | + + + + + + | Absolute | | /?L | EXTERNAL | | | Segmented | | | LAB | | | Neutrophils | | | | | + + + + + + | Absolute | | /?L | EXTERNAL | | | Lymphocytes | | | LAB | | + + + + + + | Absolute | | /?L | EXTERNAL | | | Monocytes | | | LAB | | + + + + + + | Absolute | | /?L | EXTERNAL | | | Eosinophils | | | LAB | | + + + + + + | Absolute | | /?L | EXTERNAL | | | Basophils | [...] | + +---------+ + + Uric Acid (06/08/2019 3:33 PM PDT) + +---------+ + + + | Component | Value | Ref Range | Performed | Pathologist | | | | | At | Signature | + +---------+ + + + | Uric Acid | 9.5 (A) | 4.4 - 7.6 | EXTERNAL | [...] | | + +---------+ + + Magnesium (06/08/2019 3:33 PM PDT) + +-------+ + + + | Component | Value | Ref Range | Performed | Pathologist | | | | | At | Signature | + +-------+ + + + | Magnesium | 2.1 | 1.7 - 2.5 mg/dL | EXTERNAL [...] + +---------+ + + Renal Function Panel (06/08/2019 3:33 PM PDT) + + + + + + | Component | Value | Ref Range | Performed | Pathologist | | | | | At | Signature | + + + + + + | Glucose, | 241 (A) | 70 - 100 mg/dL | EXTERNAL | | | Fasting | | | LAB | | + + + + + + | BUN | 44 (A) | 6 - 23 mg/dL | EXTERNAL | | | | | | LAB | | + + + + + + | Creatinine | 2.11 (A) | 0.70 - 1.11 | EXTERNAL | | | | | mg/dL | LAB | | + + + + + + | PHOSPHORUS | 3.3 | 2.5 - 5.0 mg/dL | EXTERNAL | | | | | | LAB | | + + + + + + | Albumin | 3.9 | 3.5 - 5.0 | EXTERNAL | | | | | | LAB | | + + + + + + | Na | 140 | 132 - 143 | EXTERNAL | | | | | mmol/L | LAB | | + + + + + + | K | 4.0 | 3.6 - 5.1 | EXTERNAL | | | | | mmol/L | LAB | | + + + + + + | Cl | 100 | 95 - 112 mmol/L | EXTERNAL | | | | | | LAB | | + + + + + + | CO2 | 31 | 19 - 31 mmol/L | EXTERNAL | | | | | | LAB | | + + + + + + | Anion Gap | 13.0 | 7 - 21 mmol/L | EXTERNAL | | | | | | LAB | | + + + + + + | eGFR, | | | EXTERNAL | | | non- | | | LAB | | | [place] | | | | | + + + + + + | Phosphorus, | | | EXTERNAL | | | Inorganic | | | LAB | | + + + + + + | BUN/Creatin | 20.9 | 6.0 - 28.6 | EXTERNAL | | | ine Ratio | | | LAB | | + + + + + + | Calcium | 8.9 | 8.56 - 10.3 | EXTERNAL | | | | | mg/dL | LAB | | + + + + + + | Estimated | 30 (A) | 60 - 140 mg/dL | [...]
--- OUTSIDE RECORDS SUMMARY | ~2020-06-19 | XMS | Encounter Summary ---
Demographics + + + | Address | [address] | | | [place] [address] | + + + | Home Phone | | + + + | Preferred Language | Unknown | + + + | Marital Status | Unknown | + + + | Islam Affiliation | PRO | + + + [...] Team Providers + +------+ + | Care Jewel Corner Brushing Machine Operator Name | Role | Phone [...] | | | | and | | [address] | | | | | inflammatory | | [address] | | | | | reaction | | [address] [place], | | | | | due to | | [place] | | | | | internal | | [address] | | | | | right knee | | Phone: | | | | | prosthesis, | | [phone] | | | | | initial | | Fax: | | | | | encounter | | [phone] | +--------+--------+ + + + + Encounter Details +--------+---------+ + + + | Date | Type | Department | Care Team | Description | +--------+---------+ + + + | 08/18/ | Office | Infectious | Abril Shields, | Infection associated | | 2018 | Visit | [facility] | [address] | with internal right | | | | [address] [place] | [address] | knee prosthesis, | | | | Loop Physician's | [facility] [place] | subsequent encounter | | | | [place], 3rd floor | [address] | (Primary Dx); Long | | | | [place], [place] | [phone] | term (current) use | | | | [address] | | of antibiotics | | | | [phone] | | | +--------+---------+ + + + [...] + + + | Blood Pressure | 123/65 | 08/18/2018 12:08 PM | | | | | PDT | | + + + + + | Pulse | 92 | 08/18/2018 12:08 PM | | | | | PDT | | + + + + + | Temperature | 36.6 C (97.9 F) | 08/18/2018 12:08 PM | | | | | PDT | | + + + + + | Respiratory Rate | - | - | | + + + + + | Oxygen Saturation | 99% | 08/18/2018 12:08 PM | | | | | PDT | | + + + + + | Inhaled Oxygen | - | - | | | Concentration | | | | + + + + + | Weight | 82.3 kg (181 lb 6.4 | 08/18/2018 12:08 PM | | | | oz) | PDT | | + + + + + | Height | 172.7 cm (5' 8") | 08/18/2018 12:08 PM | | | | | PDT | | + + + + + | Body Mass Index | 27.58 | 08/18/2018 12:08 PM | | | | | PDT [...] Instructions Patient Instructions Abril Shields MD - 08/18/2018 12:00 PM PDTPlease review your medi cations with Dr. Estrada at your next appointment with him. documented in this encounter Progress Notes Abril Shields MD - 08/18/2018 12:00 PM PDTFormatting of this note might be different f rom the original. Reason for visit: follow-up R knee PJI S: Mr. Mas presents for routine follow-up of ADELA R knee PJI now on suppressive cephalexin . Following his last visit with me, the area of redness at the superior aspect of his incisi on worsened and grew Pseudomonas on cx of drainage per report from Dr. Estrada. He completed a course of fluoroquinolone and this has since resolved. He denies n/v/d on cephalexin. His LE edema is now much better than it was and he is back on torsemide. ROS: as above Current Outpatient Prescriptions: acetaminophen-codeine 300-30 mg oral tablet, Take 1 table t by mouth every six hours as needed for severe pain. (Patient taking differently: Take 1 ta blet by mouth twice daily as needed for severe pain. ), Disp: 30 tablet, Rfl: 0 ALLOPURINOL ORAL, Take by mouth., Disp: , Rfl: antiox. no.38-[id number]-vmf (I-CAPS) 280-10-2 mg oral capsule, Take 1 capsule by mouth o nce daily., Disp: , Rfl: cephALEXin 500 mg oral capsule, Take 1 capsule by mouth every eight hours. Indications: bon e/joint infection, Disp: 90 capsule, Rfl: 3 cholecalciferol (Vitamin D3) 1,000 unit oral tablet, [...] Rfl: glipiZIDE 10 mg oral tablet, Take 10 mg by mouth once daily., Disp: , Rfl: LUTEIN-ZEAXANTHIN ORAL, Take by mouth., Disp: , Rfl: magnesium oxide 400 mg oral tablet, Take 400 mg by mouth once daily., Disp: , Rfl: multivitamin oral tablet, Take 1 tablet by mouth once daily., Disp: , Rfl: niacin 500 mg oral tablet, Take 500 mg by mouth once daily in the evening., Disp: , Rfl: Niacinamide 500 mg oral tablet, Take 1 tablet by mouth three times daily., Disp: , Rfl: omega-3 fatty acids (FISH OIL ORAL), Take by mouth two times daily., Disp: , Rfl: potassium chloride SR 10 mEq oral capsule, extended release, Take 20 mEq by mouth two times daily., Disp: , Rfl: senna-docusate 8.6-50 mg oral tablet, Take 1 tablet by mouth two times daily., Disp: 60 tab let, Rfl: 0 simvastatin 40 mg oral tablet, Take 40 mg by mouth once daily in the evening., Disp: , Rfl: torsemide 20 mg oral tablet, Take 20 [...] the week., Disp: , Rfl: Filed Vitals: 08/18/2018 12:08 PM Height: 1.727 m (5' 8") Weight: 82.3 kg (181 lb 6.4 oz) BP: 123/65 Pulse: 92 Temp: 36.6 C (97.9 F) TempSrc: Forehead SpO2: 99% PainSc: 0 - Zero BMI: 27.58 kg/(m^2) Gen: NAD, well-appearing, sitting in chair Skin: see Media tab; ~1cm scab at superior aspect of R knee incision without erythema or dr jesus manuel; faint erythema over anterior knee cap without increased warmth or fluctuance; law erythematous skin changes over both shins Ext: wwp Lungs/chest: respirations nonlabored Labs: 07/22 WBC 6.5 07/20 Cr 2.22, high-sens CRP 24 (ref 0.01-3.0) Assessment: 78yo man with a h/o CAD s/p CABG, ICM, sinus node dysfunction s/p PM, afib, DM, CKD, DVT on chronic anticoagulation, chronic venous insufficiency and 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 He is currently tolerating cephalexin well. Will need monitoring of scabbed area at superior aspect of knee incision. Recommendations: 1. Continue cephalexin 500mg PO TID; plan for indefinite suppressive therapy as tolerated 2. Counseled pt on risk of C diff; he should call ID if he develops diarrhea >/=3 times in a day; if he develops f/c/s, redness, drainage or opening of his incision or other concernin g sxs he should contact ortho and ID 3. Reviewed medication bottles with pt for medication reconciliation; recommended pt review his medications with his PCP given discrepancies with pill bottles and most recent Epic med list 4. RTC in coordination with next ortho appt; if no ortho follow-up needed, will contact pt' s PCP to discuss possibility of following chronic suppressive antibiotics locally Abril Shields MD Infectious Diseases [phone] documented in this encounter Plan of Treatment Not on filedocumented as of this encounter Visit Diagnoses + + | Diagnosis | + + | Infection associated with internal right knee prosthesis, subsequent encounter - | | Primary | + + | emt intermediate (current) use of antibiotics | + + documented in this encounter
--- OUTSIDE RECORDS SUMMARY | ~2020-06-19 | XMS | Encounter Summary ---
Demographics + + + | Address | [address] | | | [place] [address] | + + + | Home Phone | | + + + | Preferred Language | Unknown | + + + | Marital Status | Unknown | + + + | Cheondoism Affiliation | PRO | + + + [...] Team Providers + +------+ + | Care Preschool Disability Teacher Name | Role | Phone | + +------+ + | Gilberto Estrada MD | PCP | | + +------+ + Encounter Details +--------+ + + + + | Date | Type | Department | Care Team | Description | +--------+ + + + + | 06/12/ | Anesthesia | 6A Intra Op [id number] | Princess Ward MD | | | 2018 | Event | [address] [facility] | [address] | | | | | Jr [facility] | [facility] | | | | | Hospital Admitting | [place], [place] | | | | | Desk Located on the | [address] | | | | | 9th floor | [phone] | | | | | [place], [place] | | | | | | [address] | | | +--------+ + + + + Anesthesia Record + + + + + | Procedure Name | Responsible | Anesthesia Start | Anesthesia Stop Time | | | Anesthesiologist | Time | | + + + + + | RIGHT KNEE I&D, | | | | | POSSIBLE COMPONENT | | | | | EXCHANGE, POSSIBLE | | | | | REVISION (Right ) | | | | + [...] +--------+ + +---------+ | Wound | 06/11/18; 2230; Yes; Left; | 06/11/182229 by | | | | Medial; leg; Ulceration | Chichi Mackey, | | | | | RN | | +--------+ + +---------+ | Incisi | 06/12/18; 1414; [place]; Right; | 06/12/18 1414 by | | | on | knee | Lauren Vega RN | | +--------+ + +---------+ documented in this encounter Social History + [...] documented as of this encounter Miscellaneous Notes PMC/ANE PreOp Note - Princess Ward MD - 06/12/2018 10:09 AM PDTROS: HPI: Please see patient's other for more information. R TKA 2013 Cardiovascular: Cath October 2015: 70% proximal LAD [...] sinus node dysfunction)/ICD Type: Implant able Pacemaker Renal: renal failure Type: CKD Endo: Diabetes: Endocrine Other Parathyroid: hyperparathyroidism Heme/Onc: On warfarin for h/o DVT documented in this en counter Plan of Treatment Not on filedocumented as of this encounter Visit Diagnoses Not on filedocumented in this encounter"
--- OUTSIDE RECORDS SUMMARY | ~2020-06-19 | XMS | Encounter Summary ---
Demographics + + + | Address | [address] | | | [place] [address] | + + + | Home Phone | | + + + | Preferred Language | Unknown | + + + | Marital Status | | + + + | Evangelical Affiliation | 1077 | + + + [...] Team Providers + +------+ + | Care Receiving Specialist Name | Role | Phone | + +------+ + PCP | Unavailable | + +------+ + Encounter Details +--------+ + + + + | Date | Type | Department | Care Team | Description | +--------+ + + + + | 05/18/ | Hospital | [facility] | Olaf Nicole | | | 2000 - | Encounter | HEART MED CTR | MD [address] | | | | | CARDIAC TRANSPLANT | [address] | | | 05/19/ | | [address] | [place] [address] | | | 2000 | | [address] | [phone] | | | | | [address] | | | | | | [phone] | | | +--------+ + + + [...]
--- OUTSIDE RECORDS SUMMARY | ~2020-06-19 | XMS | Encounter Summary ---
Demographics + + + | Address | [address] | | | [place] [address] | + + + | Home Phone [...] Author + + + | Author | [facility] | + + + | Organization | [facility] | + + + | Address | Unknown | + + + | Phone | Unavailable | + + + Support + + +---------+ + | Name | Relationship | Address | Phone | + + +---------+ + | Beth Mas | ECON | Unknown | | + + +---------+ + Care Team Providers + +------+ + | Care Gluer And Slicer Hand Name | Role | Phone | [...] | | | [address] | [facility] | | | | | Loop Physician's | [place], [place] | | | | | [place], [address] [place] [address] | [address] | | | | | [place], [place] | [phone] | | | | | [address] | | | | | | [phone] | | | +--------+ + + + [...] received orders. Confirmed with RN KARLA at [facility] that they will pull patient's [...]
--- OUTSIDE RECORDS SUMMARY | ~2020-06-19 | XMS | Encounter Summary ---
Demographics + + + | Address | [address] | | | [place] [address] | + + + | Home Phone [...] Providers + +------+ + | Care Surgical Garment Inspector Name | Role | Phone | + [...] Provider Unknown | | | | | [place] | | | | | | [address] | (Fax) | | | | | [phone] | | | +--------+ + + + [...] | Procedure Note | + + | Rocky Jonathan Alvarez - 06/09/2019 11:43 PM PDT This is a non-reportable procedure | | without a radiologist report and isused for image storage only | + + documented in this encounter Visit Diagnoses + + | Diagnosis | + + | Pain Generalized pain | + + documented in this encounter"
--- OUTSIDE RECORDS SUMMARY | ~2020-06-19 | XMS | Encounter Summary ---
Demographics + + + | Address | [address] | | | [place] [address] | + + + | Home Phone | | + + + | Preferred Language | Unknown | + + + | Marital Status | | + + + | Congregation Affiliation | 1077 | + + + | Race | White | + + + | Ethnic Group | Not or | + + + Author + + + | Author | [facility] | | | and [place] | + + + | Organization | [facility] | | | [...] Team Providers + +------+ + | Care Software Quality Automation Engineer Name | Role | Phone | + +------+ + | Erin Forrester MD | PCP | | + +------+ + Encounter Details +--------+ + + + + | Date | Type | Department | Care Team | Description | +--------+ + + + + | 02/12/ | Orders Only | [facility] | Mikal Calix MD | | | 2018 | | NEPRHOLOGY [place] | [address] | | | | | [address] | [address] [place], [place] | | | | | [address] [place], [place] | [address] | | | | | [address] | | | | | | [phone] | | | +--------+ + + + [...] + +---------+ + + External Lab: CBC (02/12/2018 12:00 AM PDT) + + + [...]
--- OUTSIDE RECORDS SUMMARY | ~2020-06-19 | XMS | Encounter Summary ---
Demographics + + + | Address | [address] | | | [place] [address] | + + + | Home Phone [...] Team Providers + +------+ + | Care Flow Floor Attendant Name | Role | Phone | + +------+ + | Erin Forrester MD | PCP | | + +------+ + Encounter Details +--------+ + + + + | Date | Type | Department | Care Team | Description | +--------+ + + + + | 10/09/ | Orders Only | [facility] | Robel Ricci | | | 2014 | | CARDIOLOGY [place] | [address] | | | | | [place] [address] | [address] | | | | | [address] | [place] [address] | | | | | [address] | [phone] | | | | | [phone] | | | +--------+ + + + [...] | with evidence of 1-49% stenosis. Right CAUSTIC PLANT WORKER: The right common femoral | | | [...] patent with evidence of 1-49% stenosis. Left CAUSTIC PLANT WORKER: | | | The left common femoral [...] GOPAL PS: 82.62 cm/s | | | CAUSTIC PLANT WORKER AC: 28 deg CAUSTIC PLANT WORKER AC: 39 deg CAUSTIC PLANT WORKER PS: 82.56 cm/s CAUSTIC PLANT WORKER PS: | | | 91.14 cm/s NADIYA [...] | | cm/s Pop PS: 66.08 cm/s BOTTOM LOADER AC: 60 deg BOTTOM LOADER AC: 54 deg | | | BOTTOM LOADER PS: 104.11 cm/s BOTTOM LOADER PS: 70.22 cm/s SFA AC: 60 deg [...] AO | | | mid-dist: 1.83 cm Make Ready Mechanic: MANDEEP Authenticated by: | | | Betina Falk MD Report Date/Time: -- | | | [id number] | | + + + + + | Procedure Note | + + | Rocky, Rad Conversion - 06/17/2019 11:57 PM PDT Patient Name: Carolyn MAS of | | : 1940 Performing Physician: Betina Falk | | INDICATIONS C | | laudication, peripheral arterial [...] with evidence of 1-49% | | stenosis.Right CAUSTIC PLANT WORKER: The right common femoral artery is patent [...] patent with evidence of 1-49% stenosis. Left CAUSTIC PLANT WORKER: The | | left common femoral artery [...] | | 0.92 cmAO mid-dist: 1.83 cm Make Ready Mechanic: DHAuthenticated by: Abdelazim Hashim | | MDReport Date/Time: -[id number] IMPRESSION: 1. This was a technically | [...] medial calcification of the trifurcation vessels. | |CAUSTIC PLANT WORKER AC: 39 deg | |CAUSTIC PLANT WORKER PS: 82.56 cm/s | |CAUSTIC PLANT WORKER PS: 91.14 cm/s | |NADIYA AC: 60 [...] cm/s | |Pop PS: 66.08 cm/s | |BOTTOM LOADER AC: 60 deg | |BOTTOM LOADER AC: 54 deg | |BOTTOM LOADER PS: 104.11 cm/s | |BOTTOM LOADER PS: 70.22 cm/s | |SFA AC: 60 [...] |AO mid-dist: 1.83 cm | | | |Make Ready Mechanic: MANDEEP | |Authenticated by: Betina Falk MD | |Report Date/Time: -- [id number] | | | |IMPRESSION: | |1. This [...]
--- OUTSIDE RECORDS SUMMARY | ~2020-06-19 | XMS | Encounter Summary ---
Demographics + + + | Address | [address] | | | [place] [address] | + + + | Home Phone | | + + + | Preferred Language | Unknown | + + + | Marital Status | | + + + | Buddhism Affiliation | 1077 | + + + [...] Team Providers + +------+ + | Care Yarn Cleaner Name | Role | Phone | + [...] | | | | | | | MO | | | | | | | ESOPHAGOGAST | | | | | | | RODUODENOSCO | | | | | | | PY TRANSORAL | | | | | | | DIAGNOSTIC | | | | | | | MO EGD | | | | | | | BALLOON | | | | | | | DILATION | | | | | | | ESOPHAGUS | | | | | | | <30 MM DIAM | | | | | | | MO | | | | | | | [...] + + | 07/31/ | Hospital | [facility] | Willow Colin MD | | | 2017 | Encounter | MED CTR MP INTRA OP | [address] | | | | | [address] | [address] [place], | | | | | [place] | [place] [address] | | | | | [address] | [phone] | | | | | [phone] | | | +--------+ + + + [...] fluids. 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 makeup editor omeprazole at [place], [place]. documented in this encounter Medications at [...] Electronically signed Willow Colin MD 07/31/2017 14:06 [facility] 2:1 1 PM PDTOp Note - [...] ST. | [address] | [place], [place] | [phone] | | [facility] | | [address] | | | - LABORATORY | | [...] Negative for Helicobacter pylori with HE stain. [facility]:caw:C2NR GROSS | | | DESCRIPTION: A. The [...] technical and professional components were performed by [employer] | | | Check, [address] [place] [address] | | | (Structural Metal Worker: Don Morrell D.O.; [facility]#: [id number]). | | | Diagnostician: Gavin Michaud MD [...] ONCE PRN, Wheezing, | | | Starting [facility] 07/31/17 at 1242, | | | For [...]
--- OUTSIDE RECORDS SUMMARY | ~2020-06-19 | XMS | Encounter Summary ---
Demographics + + + | Address | [address] | | | [place] [address] | + + + | Home Phone [...] Team Providers + +------+ + | Care Circular Head Saw Operator Name | Role | Phone | [...] [address] | | | | | [address] | [address] | | | | | Loop Physician[address] | [place], [place] | | | | | [place], [facility] hospital floor | [address] | | | | | [place], [place] | [phone] | | | | | [address] | | | | | | [phone] | | | +--------+ + + + [...]
--- OUTSIDE RECORDS SUMMARY | ~2020-06-19 | XMS | Encounter Summary ---
Demographics + + + | Address | [address] | | | [place] [address] | + + + | Home Phone | | + + + | Preferred Language | Unknown | + + + | Marital Status | Unknown | + + + | Hindu Affiliation | PRO | + + + [...] Team Providers + +------+ + | Care Securities Sales Associate Name | Role | Phone | + [...] | | | | and | | [address] | | | | | inflammatory | | [address] | | | | | reaction | | Rd [place], | | | | | due to | | [place] | | | | | internal | | [address] | | | | | right knee | | Phone: | | | | | prosthesis, | | [phone] | | | | | initial | | Fax: | | | | | encounter | | [phone] | +--------+--------+ + + + + Encounter [...] | | | [address] | [facility] | joint, subsequent | | | | Loop Physician's | [place], [place] | encounter (Primary | | | | [place], 3rd floor | [address] | Dx); [facility] | | | | [place], [place] | [phone] | (current) use of | | | | [address] | | antibiotics | | | | [phone] | | | +--------+---------+ + + + [...] ), Disp: 30 tablet, Rfl: 0 antiox. no.13-adrw2l-ievnwsd2s-dag-jti (I-CAPS) 280-10-2 mg oral capsule, Take 1 [...] Pt has no other follow-up needed at [facility] at this time so will contact his PCP to see if continued prescribing of cephalexin can be managed locally Abril Shields MD Infectious Diseases documented in this encounter Plan of Treatment Not on filedocumented as of this encounter Visit Diagnoses + + | Diagnosis | + + | Infection of prosthetic knee joint, subsequent encounter - Primary | + + | [facility] (current) use of antibiotics | + + documented in this encounter"
--- OUTSIDE RECORDS SUMMARY | ~2020-06-19 | XMS | Encounter Summary ---
Demographics + + + | Address | [address] | | | [place] [address] | + + + | Home Phone | | + + + | Preferred Language | Unknown | + + + | Marital Status | Unknown | + + + | Scientology Affiliation | PRO | + + + [...] Providers + +------+ + | Care Tank Setter Helper Name | Role | Phone | [...] floor | | | | | | [place], [place] | | | | | | [address] | | | +--------+ + + + [...]
--- OUTSIDE RECORDS SUMMARY | ~2020-06-19 | XMS | Encounter Summary ---
Demographics + + + | Address | [address] | | | [place] [address] | + + + | Home Phone [...] Team Providers + +------+ + | Care Real Estate Loan Processor Name | Role | Phone | [...] [address] | | | | | | [facility] | | | | | | and Healing, | | | | | | Building [address], 5th | | | | | | Floor [place], [place] | | | | | | [address] | | | | | | [phone] | | | +--------+ + + + [...] Dear | | | | | | [place]: In | | | | | | [...] [address] | [place] [address] | | | DERMATOPATHOLOGY | [address] | | | + + + + + | [facility] | [address] | [place] [address] | | | DERMATOPATHOLOGY | [address] | | | + + + + + documented in this encounter Visit Diagnoses Not on filedocumented in this encounter"
--- OUTSIDE RECORDS SUMMARY | ~2020-06-19 | XMS | Encounter Summary ---
Demographics + + + | Address | [address] | | | [place] [address] | + + + | Home Phone [...] Team Providers + +------+ + | Care Certified Novell Engineer Name | Role | Phone | [...] 2017 | Encounter | at [facility] | [address] | | | | | [address] | [place], [place] | | | | | [facility] [address] | [address] | | | | | [place], [place] | [phone] | | | | | [address] | | | | | | [phone] | | | +--------+ + + + [...] | | 0 | | | | no.58-ummk3h-bycftys2m-aem-fwx | mouth once daily. | | | [...]
--- OUTSIDE RECORDS SUMMARY | ~2020-06-19 | XMS | Encounter Summary ---
Demographics + + + | Address | [address] | | | [place] [address] | + + + | Home Phone | | + + + | Preferred Language | Unknown | + + + | Marital Status | | + + + | Samaritan Affiliation | 1077 | + + + | Race | White | + + + | Ethnic Group | Not or | + + + Author + + + | Author | [facility] | | | and [place] | + + + | Organization | [facility] | | | [...] Team Providers + +------+ + | Care Construction Safety Consultant Name | Role | Phone | + +------+ + PCP | Unavailable | + +------+ + Encounter Details +--------+ + + + + | Date | Type | Department | Care Team | Description | +--------+ + + + + | 09/29/ | Hospital | [facility] | Zeb Giang | | | 2000 - | Encounter | HEART MED CTR | [address] [place] | | | | | CARDIAC TELEMETRY | [address] [place], [place] | | | 10/04/ | | [address] | [address] | | | 2000 | | [place] | | | | | | [address] | | | | | | [phone] | | | +--------+ + + + [...]
--- OUTSIDE RECORDS SUMMARY | ~2020-06-19 | XMS | Encounter Summary ---
Demographics + + + | Address | [address] | | | [place] [address] | + + + | Home Phone | | + + + | Preferred Language | Unknown | + + + | Marital Status | | + + + | Druze Affiliation | 1077 | + + + [...] Team Providers + +------+ + | Care Founder And President Name | Role | Phone | [...] | [address] | [address] [facility] | | | | | [place] | [address] | | | | | [address] | [address] | | | | | [phone] | | | +--------+ + + + [...] - 1.030 | EXTERNAL | | | [place], | | | LAB | | | [...]
--- OUTSIDE RECORDS SUMMARY | ~2020-06-19 | XMS | Encounter Summary ---
Demographics + + + | Address | [address] | | | [place] [address] | + + + | Home Phone | | + + + | Preferred Language | Unknown | + + + | Marital Status | | + + + | Anglican Affiliation | 1077 | + + + | Race | White | + + + | Ethnic Group | Not or | + + + Author + + + | Author | [facility] | | | and [place] | + + + | Organization | [facility] | | | [...] Team Providers + +------+ + | Care Dictating Machine Transcriber Name | Role | Phone | + +------+ + | Erin Forrester MD | PCP | | + +------+ + Encounter Details +--------+ + + + + | Date | Type | Department | Care Team | Description | +--------+ + + + + | 01/12/ | Orders Only | [facility] | Conversion | | | 2017 | | NEPHROLOGY [place] | Transaction, | | | | | [address] | Provider Unknown | | | | | [address] | [phone] | | | | | [address] | | | | | | [phone] | | | +--------+ + + + [...] - 1.030 | EXTERNAL | | | [place], | | | LAB | | | [...]
--- OUTSIDE RECORDS SUMMARY | ~2020-06-19 | XMS | Encounter Summary ---
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 No signs of bleeding were noted upon dis continuation of TR band. Pt given discharge paperwork however left this behind. Pt VSS. P t denies pain. Pt discharged to home with spouse. onver zoe Transaction, Provider Unknown - 10/31/2015 1:58 PM PST Progress Notes by Allan Julio RPH at 10/31/15 5425 Author: Allan Julio RPH Service: (none) Author Type: Pharmacist Filed: 10/31/15 2486 Date of Service: 10/31/151357 Status: Signed Audio Visual Collections Coordinator: lAlan Julio RPH (Pharmacist) Renal Dosing Monitoring: Duane [...] Date of Service: 10/31/15 1102 Status: Signed Audio Visual Collections Coordinator: Alex Villegas MD (Physician) [facility] Service: Cardiology Pre-Operative History & Physical Interval [...] 1133 Note Time: 10/18/15 0950 Status: Signed Audio Visual Collections Coordinator: Robel Ricci DO (Physician) Expand All Collapse [...] current dose (simvastatin). DVT (deep venous thrombosis) ([facility]) Hx DVT, right leg, chronic venous insufficiency. On warfarin, managed by PCP. Arterial US, lower Ext, 10/09/2015: TDS, calcification of trifurcation vessels, mild-modera te disease in upper vessels. Diabetes mellitus, type 2 ([facility]) DM2, managed by PCP. F/U with TITA [...] 2 (two) times daily as need ed. 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
--- OUTSIDE RECORDS SUMMARY | ~2020-06-19 | XMS | Clinical Summary ---
Demographics + + + | Address | [address] | | | [place] [address] | + + + | Home Phone [...] Team Providers + +------+ + | Care Feather Cutting Machine Feeder Name | Role | Phone | + [...] + + +---------+------+------+-------+ | nystatin | nystatin [id number] | | 0 | | | Activ [...] | | + + + +---------+------+------+-------+ | Madison-3 Fatty | Madison 3 | | 0 | | | Activ | | Acids (OMEGA 3 PO) | | | | | | e | + + + +---------+------+------+-------+ | Madison-3 Fatty | Take by mouth two | [...] | | + + + +---------+------+------+-------+ | Madison-3 Fatty | Take 1,200 mg by | [...] + + + | 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 Pulse generator: Bazaart. Model number [id number], | | serial number [id number]. Placed because of symptomatic sinus | | [...] block.2. RV | | lead: Medtronic, model #334674, serial number [id number]. RA | | lead: Medtronic, model #099401, serial number [id number]. This | | is an Medtronic MRI [...] is planning to | | go to [place] after [place]. 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 | + + Family History + [...] + | Med Mgmt: eGFR | | 08/13/20 | | | | 0 | 19, [...] | | 2017 | -500 | | [id number]: Qty: 1 on | | | | | | /[id number] | | 09/07/2013 by Aris, | | | | | | 500 | | Drew Mendoza MD | | | | | | /[id number] | + +------+------+ +--------+--------+--------+ | Patella Triathlon 38mm 11mm | | | | | 04/25/ | 5551-G | | Height - [id number]: | | | | | 2017 | [...] | | 2017 | -402 | | [id number]: Qty: 1 on | | | | [...] - | | | | | | /76100 | | [id number]: Qty: 1 on | | | | | | 001 | | 09/07/2013 by Aris, | | | | | | /[id number] | | Drew Mendoza MD | | | | | | 1 | + +------+------+ +--------+--------+--------+ | Insert Tibial Ricardo Rivers | | | | | 01/23/ | 5531-G | | 5 13mm - [id number]: | | | | | 2017 | [...] +--------+ +---------+--------+ | CIGNA | CIGNA | [id number] | 10/27/19 | [phone] | | Indemn [...] +--------+ +---------+--------+ | MEDICARE | MEDICA | [id number] | 01/26/20 | [phone] | | Medica | | | RE | | 15-Pre | 5 | | re | | | PART A | | sent | | | | | | AND B | | | | | | + +--------+ +--------+ +---------+--------+ | MEDICARE | MEDICA | [id number] | 04/26/20 | [phone] | | Medica | | | RE | | 03-Pre | 5 | | re | | | PART A | | sent | | | | | | AND B | | | | | | + +--------+ +--------+ +---------+--------+ | CIGNA | CIGNA | [id number] | 10/27/19 | [phone] | | Indemn [...] Person | Self | [birth year] | | [address] | | | al/Fam | | 1940 | [phone] | [place] [address] | | | afshan | | | 4 (Home) | | + +--------+ +--------+ + + | Duane Mas | Person | Self | [birth year] | | [address] | | | al/Fam | | 1940 | [phone] | [place] [address] | | | afshan | | | 4 (Home) | | + +--------+ +--------+ + + Advance Directives + + + + + | Type | Date Recorded | Patient | Explanation | | | | Construction Safety Consultant | | + + + + + | Power of | | | | | Childcare Worker | | | | + + + + + | Advance | 07/31/2017 10:59 | | | | Directive | AM | | | + + + + +
--- OUTSIDE RECORDS SUMMARY | ~2020-06-19 | XMS | Encounter Summary ---
Demographics + + + | Address | [address] | | | [place] [address] | + + + | Home Phone [...] Team Providers + +------+ + | Care Woodyard Operator Name | Role | Phone | [...] [address] | | | | | [address] | [address] | | | | | Loop Physician's | [place], [place] | | | | | [place] floor | [address] | | | | | [place], [place] | [phone] | | | | | [address] | | | | | | [phone] | | | +--------+ + + + [...]
--- OUTSIDE RECORDS SUMMARY | ~2020-06-19 | XMS | Encounter Summary ---
Demographics + + + | Address | [address] | | | [place] [address] | + + + | Home Phone | | + + + | Preferred Language | Unknown | + + + | Marital Status | Unknown | + + + | Scientologist Affiliation | PRO | + + + [...] Providers + +------+ + | Care Electronic Prepress Operator Name | Role | Phone | + +------+ + | Gilberto Estrada MD | PCP | | + +------+ + Reason for Visit + +--------+ + | Reason | Onset | Comments | | | Date | | + +--------+ + | RN Care Management | 07/09/ | Resumed care at home post DC from [place] | | | 2017 | | + [...] at | | | | [address] [facility] [address] | [facility] | home post DC from | | | | Loop Physician[address] | [place], [place] | [facility]); | | | | [place], 3rd floor | [address] | Infectious disease | | | | [place], [place] | [phone] | | | | | [address] | | | | | | [phone] | | | +--------+ + + + [...] RN - 07/09/2018 2:39 PM Luca, from [facility] , called to inform us that the patient was DC'd from [facility] yesterday and is back on service [...]
--- OUTSIDE RECORDS SUMMARY | ~2020-06-19 | XMS | Encounter Summary ---
Demographics + + + | Address | [address] | | | [place] [address] | + + + | Home Phone | | + + + | Preferred Language | Unknown | + + + | Marital Status | | + + + | Confucianist Affiliation | 1077 | + + + | Race | White | + + + | Ethnic Group | Not or | + + + Author + + + | Author | [facility] | | | and [place] | + + + | Organization | [facility] | | | [...] Team Providers + +------+ + | Care Index Editor Name | Role | Phone | + [...] | | | | | | | IA | | | | | | | ESOPHAGOGAST | | | | | | | RODUODENOSCO | | | | | | | PY TRANSORAL | | | | | | | DIAGNOSTIC | | | | | | | IA EGD | | | | | | | TRANSORAL | | | | | | | BIOPSY | | | | | | | SINGLE/MULTI | | | | | | | PLE IA EGD | | | | | | | BALLOON | | | | | | | DILATION | | | | | | | ESOPHAGUS | | | | | | | <30 MM DIAM | | | | | | | IA | | | | | | | [...] | 02/10/ | Hospital | [facility] | Willow Colin MD | | | 2019 | Encounter | MED CTR MP INTRA OP | [address] | | | | | [address] | [address] [place], | | | | | [place] | [place] [address] | | | | | [address] | [phone] | | | | | [phone] | | | +--------+ + + + [...] You can't be awakened Date Last Reviewed: 08/13/201619991559-2077 [employer]. [address] [place] [address]. All righ ts reserved. This information is [...] you take. This includes prescription medicines, o mjb-ceg-fikmsya medicines, herbs, vitamins, and other supplements. Be [...] icine to relax you. The procedure takes kklbr07xfbpuxq. It does not cause trouble breath ing. [...] Black, tarry, or bloodystools Date Last Reviewed: 04/26/201619993427-8850 [employer]. [address] [place] [address], [place] [address]. All righ ts reserved. This information is [...] prescription medicines Herbs, vitamins, and other supplements Wpbd-bwp-smlyrgy medicines such as aspirin or ibuprofen Street [...] heart or lung disease Date Last Reviewed: 05/27/201719996518-4317 [employer]. [address] [place] [address]. All righ ts reserved. This information is [...] by: Willow Colin MD, 02/10/2019 13:00 [facility] signed by Willow Colin [...] | + + + + + | [address] | [address] [facility] | [place] [address] | [phone] | | [address] | | | [...] ST. | [address] | [place], [place] | [phone] | | [facility] | | [address] | | | - LABORATORY | | | | + + + + + Surgical Pathology Exam (02/10/2019 12:00 AM PDT) + + | Specimen | + + | | + + + + + | Narrative | Performed At | + + + | SPECIMEN(S): A GASTRIC BIOPSY SPECIMEN SOURCE: [facility] | [facility] | | BIOPSY CLINICAL HISTORY: R13.10 [...] technical and professional components were performed by [employer] | | | [employer], [address] [place] [address] | | | (Ribbon Hand: Don Morrell D.O.; CLIA#: [id number]). | | | Diagnostician: Gely Cerna MD [...]
--- OUTSIDE RECORDS SUMMARY | ~2020-06-19 | XMS | Encounter Summary ---
Demographics + + + | Address | [address] | | | [place] [address] | + + + | Home Phone | | + + + | Preferred Language | Unknown | + + + | Marital Status | Unknown | + + + | Latter-Day Affiliation | PRO | + + + [...] Team Providers + +------+ + | Care Mussel Farmer Name | Role | Phone | + [...] | | | | | [place], | | | | | | [place] [address] | | | +--------+--------+ + + + [...]
--- OUTSIDE RECORDS SUMMARY | ~2020-06-19 | XMS | Encounter Summary ---
Demographics + + + | Address | [address] | | | [place] [address] | + + + | Home Phone [...] Team Providers + +------+ + | Care Network Programmer Name | Role | Phone | + [...]
--- OUTSIDE RECORDS SUMMARY | ~2020-06-19 | XMS | Encounter Summary ---
Demographics + + + | Address | [address] | | | [place] [address] | + + + | Home Phone | | + + + | Preferred Language | Unknown | + + + | Marital Status | Unknown | + + + | Mandaeism Affiliation | PRO | + + + | Race | White | + + + | Ethnic Group | Not or | + + + Author + + + | Author | [facility] | + + + | Organization | [facility] | + + + | Address | Unknown | + + + | Phone | Unavailable | + + + Support + + +---------+ + | Name | Relationship | Address | Phone | + + +---------+ + | Beth Mas | ECON | Unknown | | + + +---------+ + Care Team Providers + +------+ + | Care Diploma Pharmacy Technician Name | Role | Phone | [...] PPV | RN [address] | (correct cefazolin | | | | [address] | [facility] [address] | orders) | | | | Loop Physician's | [place], [place] | | | | | [place], [facility] floor | [address] | | | | | [place], [place] | [phone] | | | | | [address] | | | | | | [phone] | | | +--------+ + + + [...] Telephone Encounter - Jaye Winchester RN - 07/02/2018 10:26 AM PDTCoram pharmacist Rosalind cedeñoed to clarify cefazolin dose. Orders sent with correct dosing of 2gm q8. Jaye Winchester RN documented in this en counter Plan of Treatment Not on filedocumented as of this encounter Visit Diagnoses + + | Diagnosis | + + | Infection associated with internal right knee prosthesis, subsequent encounter | + + documented in this encounter"
--- OUTSIDE RECORDS SUMMARY | ~2020-06-19 | XMS | Encounter Summary ---
Demographics + + + | Address | [address] | | | [place] [address] | + + + | Home Phone [...] +------+ + | Care Associate Professor Of Geology Name | Role | Phone | + [...] | | | | | [address] [facility] | | | | | | [place] | | | | | | [address] | | | | | | | [...] | DERMATOPATH | | | MNT) | [address] CLIN[address] | | OLOGY | | | [...] + + + + + | [facility] DEPARTMENT | [address] | [place] [address] | | | PATHOLOGY | [address] | | | + + + + + | [facility] | [address] | [place] [address] | | | DERMATOPATHOLOGY | [address] | | | + + + + + documented in this encounter Visit Diagnoses Not on filedocumented in this encounter"
--- OUTSIDE RECORDS SUMMARY | ~2020-06-19 | XMS | Encounter Summary ---
Demographics + + + | Address | [address] | | | [place] [address] | + + + | Home Phone | | + + + | Preferred Language | Unknown | + + + | Marital Status | | + + + | Shinto Affiliation | 1077 | + + + [...] Providers + +------+ + | Care Production [place] Name | Role | Phone | + [...] + + | 09/29/ | Telephone | [facility] | Kristie De Los Santos ANP | Patient Concerns | | 2019 | | CARDIOLOGY [place] | [address] | | | | | [address] | [place], [place] | | | | | [place], [place] | [address] | | | | | [address] | | | | | | [phone] | | | +--------+ + + + [...]
--- OUTSIDE RECORDS SUMMARY | ~2020-06-19 | XMS | Encounter Summary ---
Demographics + + + | Address | [address] | | | [place] [address] | + + + | Home Phone [...] Team Providers + +------+ + | Care Turner In Name | Role | Phone | + [...] [facility] | | | | | | [facility] | | | | | | and Healing, | | | | | | Building [address]th | | | | | | Floor [place], [place] | | | | | | [address] | | | | | | [phone] | | | +--------+ + + + [...] [facility] | [address] | [place] [address] | | | DERMATOPATHOLOGY | [address] | | | + + + + + | [facility] | Mary [address] | [place] [address] | | | DERMATOPATHOLOGY | [address] | | | + + + + + documented in this encounter Visit Diagnoses Not on filedocumented in this encounter"
--- OUTSIDE RECORDS SUMMARY | ~2020-06-19 | XMS | Encounter Summary ---
Demographics + + + | Address | [address] | | | [place] [address] | + + + | Home Phone [...] Team Providers + +------+ + | Care Applications Consultant Name | Role | Phone | + +------+ + | Erin Forrester MD | PCP | | + +------+ + Encounter Details +--------+ + + + + | Date | Type | Department | Care Team | Description | +--------+ + + + + | 10/09/ | Orders Only | [facility] | Robel Ricci | | | 2014 | | CARDIOLOGY [place]ON | [address] | | | | | NUC MED [address] | Kiran Chou | | | | | KIRAN [address]ALLO | [place] [address] [address] | | | | | [place], [place] | [phone] | | | | | [address] | | | | | | [phone] | | | +--------+ + + + [...] Performed At | + + + | [facility] CARDIOLOGY Nuclear Lexiscan Stress Test [...] Hidalgo Conversion - 06/17/2019 11:57 PM PDT [facility] | | Lexiscan Stress Test History:75 Year [...]
--- OUTSIDE RECORDS SUMMARY | ~2020-06-19 | XMS | Encounter Summary ---
Demographics + + + | Address | [address] | | | [place] [address] | + + + | Home Phone [...] Providers + +------+ + | Care Senior Instrumentation Engineer Name | Role | Phone | + +------+ + PCP | Unavailable | + +------+ + Encounter Details +--------+ + + + + | Date | Type | Department | Care Team | Description | +--------+ + + + + | 09/07/ | Hospital | [facility] | Drew Hurst | | | 2012 - | Encounter | C[facility] SUR[facility] [address] | [address] | | | | | [address] | [address] | | | 09/09/ | [facility] | [place] [address] [address] | | | 2012 | | [address] | [phone] | | | | | [phone] | | | +--------+ + + + [...] Summaries by Drew Hurst MD at 09/09/13 1305 Author: Drew Hurst MD Service: Orthopedic Surgery Author Type: Physician Filed: 09/09/13 0941 Date of Service: 09/09/13 0939 Status: Signed Marine Oiler: Drew Hurst MD (Physician) [facility] Service: Orthopedic Surgery Discharge Summary Date of Admission: 09/07/2013 Date of Discharge: 09/09/2013 Discharge Physician: DREW HURST MD Treatment Team: Admitting Provider: Drew Hurst MD Discharge Diagnoses: Active Problems: * No active hospital problems. * Resolved Problems: * No resolved hospital problems. * Procedures: Procedure(s) with comments: KNEE - TOTAL - alsiha component alisha navigation HOSPITAL COURSE: Pt was [...] - TOTAL; Surgeon: Drew Hurst MD; Location: [facility] MAIN OR; Servic e: Orthopedics; [...] up: 7-10 days with Drew Hurst MD (physician assistant Alison Tompkins) [facility] [address] [place] [id number] . 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 All discharge instructions to includ e medications and appointments reviewed with patient and his . Prescriptions given to wi fe. PIV removed, catheter intact, bandage applied. All questions answered. onver zoe Transaction, Provider Unknown - 09/09/2013 11:37 AM PST Case Management by Rita Borja RN at 09/09/13 399 Author: Rita Borja RN Service: (none) Author Type: Registered Nurse Filed: 09/09/13 1138 Date of Service: 09/09/131136 Status: Signed Marine Oiler: Rita Borja RN (Registered Nurse) HEMANT Iqbal [...] Date of Service: 09/09/13 1032 Status: Signed Marine Oiler: Marta Lopez RN (Registered Nurse) CHF education completed with patient and his , packet given to patient. All questions a nswered onver zoe Transaction, Provider Unknown - 09/09/2013 10:10 AM PST Progress Notes by Shayla Hennessy LPN at 09/09/13 1010 Author: Shayla Hennessy LPN Service: (none) Author Type: Registered Nurse Filed: 09/09/13 1010 Date of Service: 09/09/13 1010 Status: Signed Marine Oiler: Shayla Hennessy LPN (Registered Nurse) Visited with pt this am regarding warfarin education. [facility]. Pt has no questions regarding warfarin at this time. onver zoe Transaction, Provider Unknown - 09/09/2013 9:55 AM PST Progress Notes by Irina Cooley PTA at 09/09/13 0955 Author: Irina Cooley PTA Service: (none) Author Type: Garment Finisher Filed: 09/09/13 1310 Date of Service: 09/09/13 0955 Status: Signed Marine Oiler: Irina Cooley PTA (Garment Finisher) 09/09/13 0955 PT Last Visit PT Received [...] 09/09/13938 Date of Service: 09/09/13937 Status: Signed Marine Oiler: Drew Hurst MD (Physician) Subjective: Post-Operative Day: [...] Will get INR checked on Friday in [place]. DREW HURST MD 09/09/2013 9:38 AM onversio n Transaction, Provider Unknown - 09/08/2013 1:16 PM PSTFormatting of this note might be di fferent from the original. Progress Notes by Ale Yee RD, CDE at 09/08/13 1316 Author: Ale Yee RD, VEDA Service: (none) Author Type: Moving Consultant Filed: 09/08/13 8175 Date of Service: 09/08/131315 Status: Signed Marine Oiler: Ale Yee RD, CDE (Moving Consultant) Met with pt and spouse. Reports he [...] and metformin. Ale Yee RD, MPH, CDE, Moving Consultant 09/08/2013 1:39 PM onver zoe Transaction, Provider Unknown - 09/08/2013 12:35 PM PST Progress Notes by Mireya Hoyos PT at 09/08/13 1235 Author: Mireya Hoyos PT Service: (none) Author Type: Physical Therapist Filed: 09/08/13 1410 Date of Service: 09/08/13 1235 Status: Signed Marine Oiler: Mireya Hoyos PT (Physical Therapist) 09/08/13 1235 PT Last Visit PT Received On 09/08/13 Reason for Treatment Knee replacement Requires PT Follow Up Yes Follow up PT Only? No Assistance Required 1 person Memorial Designer Needed No Precautions LE Precaution(s) RLE (WBAT [...] exercise: Marching, LAQ, Heel raises, Glut squeezes: [id number] Standing exercise: Marching, Hip Abd, Hip ext: [id number] Patients actively encouraged each other throughout activities [...] Orthopedic Surgery Author Type: Physician Filed: 09/08/13 1149 Date of Service: 09/08/13 1143 Status: Signed Marine Oiler: Drew Hurst MD (Physician) Subjective: Post-Operative Day: [...] Author: ABBIE Delgado Service: (none) Author Type: Hospital Aide Filed: 09/08/1347 Date of Service: 09/08/13845 Status: Signed Marine Oiler: ABBIE Delgado (Hospital Aide) CM met with pt for discharge planning. Pt is 73 years old and lives with his in a 2-le alan home with a ramp at the main entrance. Pt has a lqrg-uh-wkfuhc. Pt owns a walker. Pt's w mike will assist with his daily living activities including personal hygiene, grooming, dress ing, feeding, cooking, transportation and ambulation. Pt had no resource concerns at this ti me. CM will continue to follow as needed. Discharge Plan: Home. Eric Sanabria TRAP PULLER 09/08/13 0846 Discharge Planning Evaluation Admitting Diagnosis [...] 8:35 AM PST Progress Notes by Mireya oHyos PT at 09/08/13 0809 Author: Mireya Hoyos PT Service: (none) Author Type: Physical Therapist Filed: 09/08/13 3376 Date of Service: 09/08/13 0852 Status: Signed Marine Oiler: Mireya Hoyos PT (Physical Therapist) 09/08/13 0865 PT Last Visit PT Received On 09/08/13 Reason for Treatment Knee replacement Requires PT Follow Up Yes Follow up PT Only? No Assistance Required 1 person Memorial Designer Needed No Precautions LE Precaution(s) RLE (WBAT [...] 09/07/132032 Date of Service: 09/07/132030 Status: Signed Marine Oiler: Jeimy Ayala RN (Registered Nurse) Spoke with [...] 161 Date of Service: 09/07/131610 Status: Signed Marine Oiler: ILSA Wallace (Occupational Therapist) 09/07/13 1343 Plan Requires OT Follow Up Unavailable (Pt with PT ) Pt unavailable upon OT arrival. Plan to re-attempt evaluation/treatment as census permits ILSA Wallace 09/07/2013 onver zoe Transaction, Provider Unknown - 09/07/2013 1:25 PM PST Progress Notes by Gilberto Carl, PT at 09/07/13 1325 Author: Gilberto Carl PT Service: (none) Author Type: Physical Therapist Filed: 09/07/13 6778 Date of Service: 09/07/13 1325 Status: Signed Marine Oiler: Gilberto Carl PT (Physical Therapist) 09/07/13 1325 PT Last Visit PT Received On 09/07/13 Reason for Treatment Knee replacement Requires PT Follow Up Yes PT Eval/Reassessment Date 09/07/13 Memorial Designer Needed No Precautions LE Precaution(s) RLE (WBAT) [...] chair with back Prior Function Level of [place] Modified independent with functional mobility (Pt used SPC prior to sx) Lives With Spouse Employment Retired for age ([employer] full-time) RUE Assessment RUE Assessment WFL (rotator [...] Follow Up Yes PT Eval/Reassessment Date 09/07/13 Memorial Designer Needed No Precautions LE Precaution(s) RLE (WBAT) [...] Toilet seat raised;Shower chair with back onver zeo Transaction, Provider Unknown - 09/07/2013 12:57 PM PST Progress Notes by Shelly Rojo RPH at 09/07/13 1257 Author: Shelly Rojo RPH Service: (none) Author Type: Pharmacist Filed: 09/07/13 1257 Date of Service: 09/07/13 1257 Status: Signed Marine Oiler: Shelly Rojo RPH (Pharmacist) Renal Dosing Monitoring: [...] H&P by Drew Hurst MD at 09/06/13 4011 Author: Drew Hurst MD Service: Orthopedic Surgery Author Type: Physician Filed: 09/06/13 0576 Date of Service: 09/06/131624 Status: Signed Marine Oiler: Drew Hurst MD (Physician) Subjective: Patient is [...] Patient has been treat ed conservatively with fjaz-hwe-olauszk NSAIDs and activity modification. Patient currently rates [...] 12:36 PM PST Plan of Care by eJimy Ayala RN at 09/07/13 1231 Author: Jeimy Ayala RN Service: (none) Author Type: Registered Nurse Filed: 09/07/13 1232 Date of Service: 09/07/131235 Status: Signed Marine Oiler: Jeimy Ayala RN (Registered Nurse) Problem: Safety [...] 1001 Date of Service: 09/07/13957 Status: Signed Marine Oiler: Drew Hurst MD (Physician) [facility] Service: Orthopedic Surgery Operative Report PREOPERATIVE DIAGNOSIS: right knee DJD POSTOPERATIVE DIAGNOSIS: right knee DJD PROCEDURE: right total knee arthroplasty with navigation SURGEON: Drew Hurst MD TIMBER FRAMER HELPER: Kaur Del Angel MD ANESTHESIA: General ANESTHESIOLOGIST: Gopal AGUILAR FLUIDS: 1500cc ESTIMATED BLOOD LOSS: minimal TOURNIQUET TIME: 90 min Right thigh URINE OUTPUT: 250cc COMPLICATIONS: none IMPLANTS: [place] Triathlon Total Knee system 1- Size 4 [...] cutting block and made my cuts: anterior, county administrator ior, anterior chamfer, and posterior chamfer. I removed the bony fragments, then placed a l aminar rn private duty in the flexion gap and removed the [...] of three liters sterile saline with pulse director employee safety and health. There was no patellar maltracking. Floseal was [...] extubated. The patient was placed back to [facility] bed, and taken to the recovery room in stable condition. All counts were correct. There were no complications. DREW HURST MD 09/07/2013 9:58 AM dogenesis smith in this encounter Plan of Treatment [...]
--- OUTSIDE RECORDS SUMMARY | ~2020-06-19 | XMS | Encounter Summary ---
Demographics + + + | Address | [address] | | | [place] [address] | + + + | Home Phone [...] Providers + +------+ + | Care Manager Medical Writing Name | Role | Phone | + [...] | | | | JOSE Arreaga | [place], [place] | chronicity (Primary | | | | [address] | [address] | Dx) | | | | [place], [place] | [phone] | | | | | [address] | | | | | | [phone] | | | +--------+---------+ + + + [...] might be different fr om the original. [facility] Today's date: 08/18/18 Date [...] as listed. GHASSAN SHERMAN MD ORTHOPAEDICS AT [address] [place] [phone] Orders Placed This Encounter X-RAY KNEE 2 [...]
--- OUTSIDE RECORDS SUMMARY | ~2020-06-19 | XMS | Encounter Summary ---
Demographics + + + | Address | [address] | | | [place] [address] | + + + | Home Phone [...] Team Providers + +------+ + | Care Reporter Anchor Name | Role | Phone | + +------+ + | Gilberto Estrada MD | PCP | | + +------+ + Encounter Details +--------+ + + + + | Date | Type | Department | Care Team | Description | +--------+ + + + + | 06/11/ | Emergency | [facility] Emergency | [place], | | | 2017 | | Department [address] | [address] | | | | | [address] | [place], [place] | | | | | [facility] | [address] | | | | | [place], [place] | [phone] | | | | | [address] | | | | | | [phone] | | | +--------+ + + + [...] | | 0 | | | | [id number] | mouth once daily. | | | [...]
--- OUTSIDE RECORDS SUMMARY | ~2020-06-19 | XMS | Encounter Summary ---
Demographics + + + | Address | [address] | | | [place] [address] | + + + | Home Phone [...] Team Providers + +------+ + | Care Vascular Technologist Name | Role | Phone | [...] | | | | [facility] | [place], [place] | | | | | [place], 3rd floor | [address] | | | | | [place], [place] | [phone] | | | | | [address] | | | | | | [phone] | | | +--------+ + + + [...]
--- OUTSIDE RECORDS SUMMARY | ~2020-06-19 | XMS | Encounter Summary ---
Demographics + + + | Address | [address] | | | [place] [address] | + + + | Home Phone [...] Team Providers + +------+ + | Care Memorial Marker Designer Name | Role | Phone | + [...] | | | | | | | [place] | | | | | | | ESOPHAGOGAST | | | | | | | RODUODENOSCO | | | | | | | PY TRANSORAL | | | | | | | DIAGNOSTIC | | | | | | | VA EGD | | | | | | | TRANSORAL | | | | | | | BIOPSY | | | | | | | SINGLE/MULTI | | | | | | | PLE VA EGD | | | | | | | BALLOON | | | | | | | DILATION | | | | | | | ESOPHAGUS | | | | | | | <30 MM DIAM | | | | | | | [place] | | | | | | | [...] | | | | | [address] | [address] [place] | | | | | [place] | [address] | | | | | [address] | [phone] | | | | | [phone] | | | +--------+ + + + [...] explained and consent obtained. Patient transported to [facility], | | | 7 | | Monitors [...] 02/10/19 1400 by | | eral | [id number] catheter system; | Neyda Johnson RN | [...] Duane L Maxwell 78 y.o. male 1940 [id number] Procedure(s) EGD WITH DILITATION (N/A Mouth) Cooperates? [...] signed by Thang Sarmiento MD 02/10/2019 14:13 [facility] nesthesia Preprocedure Evaluation - Thang Sarmiento MD - 2018 7:36 AM PDT ANESTHESIA PREANESTHESIA EVALUATION Duane Mas 78 y.o. 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 (+) congestive heart failure. . Pulmonary [...] Diabetes mellitus, type II - ORAL Control Kmyho-yu-Htudze lying flat DAIJA II Inhibitors - Daily Use Chronic renal insufficiency, stage 4 (severe) . Electronically Signed by: Thang Sarmiento MD ESi date/time: 02/10/2019 7:36 documented in [facility] s encounter Miscellaneous Notes Addendum Note - Thang Sarmiento MD - 02/10/2019 2:50 PM PDTFormatting of this note mi ght be different from the original. Addendum created 02/10/19 5700 by Thang Sarmiento MD SmartForm saved documented [...] | | | | Intravenous, PRN, Starting Fri | | 19 1:25 | | | [...]
--- OUTSIDE RECORDS SUMMARY | ~2020-06-19 | XMS | Encounter Summary ---
Demographics + + + | Address | [address] | | | [place] [address] | + + + | Home Phone [...] Team Providers + +------+ + | Care Burrer Operator Name | Role | Phone | [...] + + | 07/29/ | Telephone | [facility] | Britni Alcazar RN | Follow-up (Call to | | 2018 | | CARDIOLOGY [facility] | | schedule follow up | | | | [address] | | appt. ) | | | | [place] | | | | | | [address] | | | | | | [phone] | | | +--------+ + + + [...]
--- OUTSIDE RECORDS SUMMARY | ~2020-06-19 | XMS | Encounter Summary ---
Demographics + + + | Address | [address] | | | [place] [address] | + + + | Home Phone [...] Author + + + | Author | [facility] | + + + | Organization | [facility] | + + + | Address | Unknown | + + + | Phone | Unavailable | + + + Support + + +---------+ + | Name | Relationship | Address | Phone | + + +---------+ + | Beth Mas | ECON | Unknown | | + + +---------+ + Care Team Providers + +------+ + | Care Canal Superintendent Name | Role | Phone | + [...] | | | | [facility] | [place], [place] | | | | | [place], [facility] floor | [address] | | | | | [place], [place] | [phone] | | | | | [address] | | | | | | [phone] | | | +--------+--------+ + + + [...]
--- OUTSIDE RECORDS SUMMARY | ~2020-06-19 | XMS | Encounter Summary ---
Demographics + + + | Address | [address] | | | [place] [address] | + + + | Home Phone [...] Team Providers + +------+ + | Care Trimming Operator Name | Role | Phone | [...] [address] | | | | | [address] | [address] | | | | | [address] [facility] | [place], [place] | | | | | [place], [facility] floor | [address] | | | | | [place], [place] | [phone] | | | | | [address] | | | | | | [phone] | | | +--------+ + + + [...]
--- OUTSIDE RECORDS SUMMARY | ~2020-06-19 | XMS | Encounter Summary ---
Demographics + + + | Address | [address] | | | [place] [address] | + + + | Home Phone | | + + + | Preferred Language | Unknown | + + + | Marital Status | Unknown | + + + | Pentecostalism Affiliation | PRO | + + + [...] Team Providers + +------+ + | Care Raw Scales Operator Name | Role | Phone | [...]
--- OUTSIDE RECORDS SUMMARY | ~2020-06-19 | XMS | Encounter Summary ---
Demographics + + + | Address | [address] | | | [place] [address] | + + + | Home Phone [...] Team Providers + +------+ + | Care Swing Frame Grinder Operator Name | Role | Phone | [...] | | | | | associated | [address] | | | | | | with | [address] | | | | | | internal | Mary Norris | | | | | | right knee | [place], [place] | | | | | | prosthesis, | [address] | | | | | | subsequent | Phone: | | | | | | encounter | [phone] | | | | | | Procedures | Fax: | | | | | | OCCUPATIONAL | [phone] | | | | | | THERAPY [...] | | | | | associated | [address] | | | | | | with | [address] | | | | | | internal | Mary Norris | | | | | | right knee | [place], [place] | | | | | | prosthesis, | [address] | | | | | | subsequent | Phone: | | | | | | encounter | [phone] | | | | | | Procedures | Fax: | | | | | | PHYSICAL | [phone] | | | | | | THERAPY [...] + + | 06/11/ | Hospital | [facility] [address] | Sandra Valle MD | | | 2018 - | Encounter | [address] | [address] | | | | | [place], | [address] | | | 06/17/ | | [place] [address] | [place], [place] | | | 2018 | | [phone] | [address] | | | | | | [phone] | | | | | | | | | | | | Edyta Demarco MD | | | | | | [address] | | | | | | [address] | | | | | | [place], [place] | | | | | | [address] | | | | | | [phone] | | | | | | | | | | | | Dean Ugarte MD | | | | | | [address] | | | | | | [address] [place], | | | | | | [place] [address] | | | | | | [phone] | | | | | | | | | | | | Stephan Mercado MD | | | | | | [address] | | | | | | [address] | | | | | | [place], [place] | | | | | | [address] | | | | | | [phone] | | | | | | | | | | | | Dayan Valverde, | | | | | | [address] | | | | | | [address] | | | | | | [place], [place] | | | | | | [address] | | | | | | [phone] | | | | | | | | | | | | Hugh Park MD | | | | | | [address] | | | | | | [place], | | | | | | [place] [address] | | | | | | [phone] | | | | | | | | | | | | Ann Mahmood MD | | | | | | [address] | | | | | | [address] | | | | | | [place], [place] | | | | | | [address] | | | | | | [phone] | | | | | | | [...] (s/p PCI x3, CABG x2) complicated by cushion padder erich systolic heart failure (EF 45%) due [...] excellent response. He will continue PT/OT at [facility] swing bed unit. Per orthopedic [...] I-CAPS 280-10-2 mg Cap Generic drug: antiox. no.59-onzp5i-vurmjny9n-tuv-zsu Take 1 capsule by mouth once daily. [...] (Non-Steroidal Anti-Inflammatory Drug) Renal Failure Avoid per Drier Tender Naphthalene recommendations Sulfa (Sulfonamide Antibiotics) Rash Vital Signs [...] . Specialty: Acute Care Hospital Contact information [address] [facility] [address] [place] Location: [facility] swing bed unit Appointments: Dr. Sherman on 07/23/18 at 10:40am. The discharge note was forwarded to the PCP for review. Discharging Physician: Ann Mahmood MD Suggested CPT: 95267 Discharge Management > 30 minute I spent more than 35 minutes dclh-fq-eetq with the patient of which 70% was [...] | | 0 | | | | no.25-mmvo6u-ixringu2m-upt-mjn | mouth once daily. | | | [...] negative pressure wound therapy dressing right knee [id number] Subjective: Doing ok overall. No CP/SOB. Tolerating [...] Plan to DC today to SNF in [place]. SNF can pull sutures at 2 weeks from operat kai date (June 27 is 2 weeks post op). Plan to return to Dr. Sherman' clinic 6 weeks an d also have ID clinic visit on that day. Appreciate [facility] and ID help in managing this [...] knee at that time. Elias Soriano MD [facility] Department of Orthopaedics and Rehabilitation PGY-1 Pager [phone] Ann Vang MD - 4:42 PM PDT HOSPITALIST INPATIENT PROGRESS NOTE Author: Ann Mahmood MD PCP: Gilam Estrada MD Hospital Day:5 24h Events: Changed [...] (s/p PCI x3, CABG x2) complicated by cushion padder erich systolic heart failure (EF 45%) due [...] mg daily Dispo: Anticipate discharge tomorrow to [facility] bed unit if renal function is s table Code status: Full code Diet: Regular diet Prophy: warfarin and heparin Ann Mahmood MD [employer] Naturalistrobotic machine tender production Clinical Hospitalist and Medicine Teaching Services [facility] Pager [phone] Suggested CPT: 02510 Subsequent Visit Detailed/High complexity 35 min I spent 37 minutes sqbj-ra-hsdc with the patient of which 78% was [...] negative pressure wound therapy dressing right knee [id number] Subjective: Doing ok overall. No CP/SOB. Tolerating [...] refill < 2 seconds Assessment & Plan: Júinor Mas is a 78 y.o.M with the [...] to home as t ransporting back to [place] may present the patient and family undo hardship. 6. Dressings/Drains: Pulled yesterday? 7. Dispo/Discharge: Anticipate discharge to SNF in next 1-3 days if all criteria met. 8. Follow-up: Please call the clinic to make a follow up appointment in approximately 2 wee ks with ORTHO TRAUMA & FRACTURE, . AP and lateral of R knee at that time. Elias Soriano MD [facility] Department of Orthopaedics and Rehabilitation PGY-1 Pager [phone] atel, Tanvir - 06/16/2018 8:20 AM PDT [...] three and a half hours away from [place]. At this time, we are unsur e of his ability to follow up with an OPAT clinic or if there is a provider near [place], where the patient resides. 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 This patient was staffed [facility] Villalobos, who agrees with the above assessment and plan unless otherwise documented. Tanvir [facility] P SUBJECTIVE Interval Events: No acute events overnight S: patient reports he is feeling well this morning. States he was able to meet with a case packer and had decided to go to a [...] Dona Mercado MD Division of Hospital Medicine [facility] Pager [phone] I spent more than 35 minutes mafv-qd-wwei with the patient of which greater than [...] negative pressure wound therapy dressing right knee [id number] Subjective: Doing ok overall, not too much pain in right knee. Looking forward to getting rounding and backing machine operator to home, "My wants to get [...] neuropathy baseline "whole foot is numb" (per roceal chris) Vascular: digits warm & well perfused, [...] to home as t ransporting back to [place] may present the patient and family undo hardship. 6. Dressings/Drains: Continue drain 7. Dispo/Discharge: Anticipate discharge to SNF in next 1-3 days if all criteria met. 8. Follow-up: Please call the clinic to make a follow up appointment in approximately 2 wee ks with ORTHO TRAUMA & FRACTURE, . AP and lateral of R knee at that time. Sisi Pablo [facility] Orthopaedic Trauma Surgery Pager [phone] Stephan Aguirre MD - 06/14/2018 8:59 AM [...] Dona Mercado MD Division of Hospital Medicine [facility] Pager [phone] I spent more than 35 minutes vgml-oj-fojg with the patient of which greater than [...] negative pressure wound therapy dressing right knee [id number] Subjective: Pain improving in R knee. Objective: [...] [facility] & FRACTURE, . AP and lateral of R knee at that time. SEBAS PLEITEZ MD Pager [phone] Stephan Aguirre M D - 06/13/2018 9:51 [...] Dona Mercado MD Division of Hospital Medicine [facility] Pager [phone] I spent more than 35 minutes brtk-wm-knyz with the patient of which greater than [...] negative pressure wound therapy dressing right knee [id number] Subjective: Painful in R knee today, but [...] [facility] & FRACTURE, . AP and lateral of R knee at that time. SEBAS PLEITEZ MD Pager [phone] Stephan Aguirre M D - 06/12/2018 1:24 [...] Dona Mercado MD Division of Hospital Medicine [facility] Pager [phone] I spent more than 35 minutes fdwj-tm-vhhx with the patient of which greater than [...] total arthroplasty. Nika martinez was referred to [facility] for joint revision, and presented emergently to [facility] ED from [facility] ([place], [place]). Prior to presentation patient states that [...] IV (baseline cr 1.8-2.0), has had prior MD, no CVA. For his right lower extremity [...] inferior-apical ischemia, LVEF 53%. -10/2015 [facility] with 90% ostial first diagonal, 85% ostial second diagonal, occluded stent of proximal RCA with left to right coronary collaterals, Patent SVG to LAD Ischemic Cardiomyopathy c/b Chronic Systolic Heart Failure and Diastolic Heart Failure -10/2015 [facility] with EF 45% and inferiobasal akinesia Obstructive [...] po daily Carvedilol 12.5mg po daily -Y [place]-3 fatty acid 1,200mg po bid Acetaminophen-codeine po [...] the Social Hx as appropriate. 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 -would consult alarm mechanism adjuster for enhanced nutrition in post-operative period [...] unclear why patient was placed on superintendent marine oil terminal anticoagulation after prior provoked DVT. Dean Ugarte MD Clinical Hospitalist Services [facility] Pager [phone] 06/11/2018 10:44 PM [facility] DEPARTMENT: Hosp ([facility]) - [phone] Place of Service: Date of Service: 07/25/2016 [facility] [phone] Modifiers:GC Resident Involved: No Service: PRIMARY HOSPITALIST Suggested CPT: 13975 Initial Visit Comp/High Complexity 70 min I [...] and Frequent lab draws Procedure location: Unit:[facility] Room: 14 Providers: Attending name: Attending physically present: No PICC Nurse name: Frances Fair RN BSN VAT Assisted by Christina March RN BSN VAT Pre-Procedure Consent: written consent obtained Consent given by: Patient Patient identity confirmed per protocol: Yes Team Pause: Immediatly prior to the procedure a pause per protocol was called. A pause veri fies correct patient, procedure, equipment, bioinformatics support specialist and site/side marked as required. CLABSI Prevention [...] area Basilic vein. Cat heter lot number: [id number] with a length of 55 cm was [...] Service: 08/01/2015 Attending Surgeon: Ghassan Sherman MD Entry Level Web Developer(s): mesfin thompson MD Preoperative Diagnosis: 1. right total knee prosthetic joint infection. Postoperative Diagnosis: same Procedures Performed: 1. Right knee arthrotomy with drainage for infection and polyethylene exchange 2. Application TINO disposible negative pressure wound therapy dressing right knee [id number] Anesthesia: General endotracheal anesthesia. Implants: excahgned alisha triathalon poly size 15, 13mm EBL: 50 Complications: None Specimens: 6 cultures, 1 path Indication For Procedure: Solo Alves was transferred to [facility] for sepsis after previosuly having been treated with a right total knee. He ws medically unstable and transferred to [facility] medical service. An apsirate was positive. [...] Patricia wrap. He was then aw[facility] from [facility] and transported back to the postanesthesia [...] as it stands. Ghassan Sherman MD, MPH Guard Lieutenant, [place] [address] [email or web address] docu mented in this encounter [...] patient will need to follow up at [facility] on July 23 with orthopedics. During t hat time,we will cooridnate so that he may follow up with ID/OPAT in regards to his treatmen t. He will be discharged to [facility] to receive inpatient therapy and OPAT. 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 at [facility]. If patient is discharged fr [...] the primary team. This patient was staffed [facility]. Villalobos, who agrees with the above assessment and plan unless otherwise documented. Tanvir [facility] P SUBJECTIVE Interval Events: No [...] tablet allopurinol 300 mg oral tablet antiox.mv no.59-pgsn3k-lseyefc2r-kfl-vac (I-CAPS) 280-10-2 mg oral capsule carvedilol 12.5 [...] Anticoagulation Clinic/Provider: New PCP Dr. Don Estrada ([phone]) Date INR Warfarin Dose 06/17/2018 1.78 2.5 [...] make recommendations. Please page clinical ph armacist (#[phone]) or call central inpatient pharmacy ([phone]) with questions. Rashard Jacob Pharm. D. Candidate Associated attestation - Mary Wade [facility] - 06/17/2018 11:14 AM PDT--I have reviewed the note written by pharmacy account director Rashard Jacob and I agree with the content and his plan for warfarin on this patient. Thank you, Mary Wade [facility]. Pager [phone] Mary Wade [facility] - 06/16/2018 1:26 PM PDTFormatting [...] Anticoagulation Clinic/Provider: new PCP Dr. Don Estrada ([phone]) Date INR Warfarin Dose 06/16/2018 1.51 2.5mg [...] make recommendations. Please page clinical ph armacist (#[phone]) or call central inpatient pharmacy ([phone]) with questions. Thank you for consult, Mary Wade [facility]. Pager [phone] Trish Blankenship MD - 10:46 AM PDTAssociated Order(s): IP CONSULT TO INFECTIOUS DISEASESFormatting of [facility] s note might be different from the original. [facility] Infectious Diseases OPAT Referral for Discharge Planning Team B: OPAT RN Jaye Winchester, Office: [phone], Pager: [phone] ID Diagnosis: PJI Antibiotic agent and dosing: [...] has an ortho appointment 10:40 sa day) Clinical Pharmacy Specialist: For all patients requiring IV antibiotic therapy, please route your OPAT [place] n of Care Note (.CMOPAT) to [facility] "p OPAT/Infectious Diseases clinic" Pool at [...] and make recommendations. Please page clinical pharmacist (#[phone]) or call central inpatient pharmacy ([phone]) with questions. Subjective/Objective: Allergies: Nsaids (non-steroidal anti-inflammatory [...] by his new PCP Don Estrada MD ([phone]). The patient reports Dr Estrada wanted him [...] Carrington. 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 We will discuss [facility] OPAT vs outside providers. Formalized recs pending Recommendations were communicated directly to the primary team. This patient was staffed [facility] Villalobos, who agrees with the above assessment and plan unless otherwise documented. Thank you for the consult, we will follow along with you. Tanvir [facility] P SUBJECTIVE HPI: Júnior Mas is [...] arthritis. The patient was then transferred from [place] to [facility] for fu rther evaluation. While here, [...] 300 mg by mouth once daily. antiox. no.84-fypl0q-iscrchp5s-ihx-qhg (I-CAPS) 280-10-2 mg oral capsule Take 1 [...] mouth every Friday. Take 1 tablet by [facility] all other days of the week. Current [...] (Non-Steroidal Anti-Inflammatory Drug) Renal Failure Avoid per Drier Tender Naphthalene recommendations Sulfa (Sulfonamide Antibiotics) Rash Social History [...] assessment and plan, and I have documen dilcai any additions or exceptions. Mr. Mas is [...] care. Ishaan Villalobos MD [facility], PharmD - 06/14/2018 7:36 PM PDT [...] lab draw. - Please page clinical pharmacist (#[phone]) or call central inpatient pharmacy ([phone]) wit h questions. Subjective/Objective: Júnior aMs, a 78yo male on empiric vancomycin IV. [...] CULTURE, TISSUE-PROSTHETIC JOINT INFECTION AER AND MARIELOS [[id number]] (Abnormal) [facility] Collec dilcia: 06/12/18 1354 Lab Status: Preliminary result Specimen: Tissue from Knee - right Updated: 06/14/18 1344 CULTURE RESULT [facility] Staphylococcus epidermidis (A) Ref Range: Narrative: Culture Report: Staphylococcus epidermidis Gram Stain: No squamous epithelial cells Rare polymorphonuclear cells No organisms seen Thank you, Ramon Mercado, PharmD, [facility] Clinical Pharmacist elphine, Torey Adame [...] and make recommendations. Please page clinical pharmacist (#[phone]) or call central inpatient pharmacy ([phone]) with questions. Subjective/Objective: Júnior Mas, a 78 [...] by his new PCP Don Estrada MD ([phone]). The patient reports Dr Estrada wanted him [...] you for the consult, Evgeny Akers PharmD, [facility] Pager [phone] Evgeny Robles PharmD - 06/13/2018 8:41 AM [...] on stable regimen. Please page clinical pharmacist (#[phone]) or call central inpatient pharmacy ([phone]) with q uestions. Subjective/Objective: Indication: infectious disorder of joint Therapy start date: 06/12/18 Anticipated duration: TBD Goal trough: ~15 mg/L Urine output: unavailable for most of the past 24 hours Renal function: stable , current SCr 1.66 (Baseline SCr 1.6-1.8) Actual body weight: Weight: 86.7 kg (191 lb 1.6 oz) (06/13/18 4933) Pertinent cultures/sensitivities: 06/12/18 blood and tissue cultures - in process Thank you for the consult, Evgeny Akers PharmD, [facility] Pager [phone] Harley Echols MD - 06/11/2018 7:27 PM PDT [facility] DEPARTMENT OF ORTHOPAEDICS & REHABILITATION HISTORY & PHYSICAL EXAMINATION Patient: Júnior Mas Encounter Date: 06/11/2018 Attending Physician: Maral Leon MD HISTORY OF PRESENT ILLNESS: Júnior Mas is a 78 year old male with CHF, gout, CAD with prior MD, DMII, HTN who presents with 2 weeks of progressive right knee pain, stiffness, fevers and malaise. He had his tota l knee arthroplasty done in [address] Hurst at [facility] for advance d DJD. He's had [...] culture s pending. He was transferred to [facility] for further management of a septic prosthetic knee. Implants: [place] Triathlon Total Knee System 1. Size 4 [...] up appointment in approximately 2 [facility] ORTHO TRAUMA & FRACTURE, The orthopaedics consult pager is [phone], please call with questions. Harley Weaver MD Resident Department of Orthopaedics Pager [phone] [facility] Department of Orthopaedics & Rehabilitation [phone] [facility] Mail Code: OP31 [facility] [address] Associated attestation - Ghassan hSerman MD - 06/12/2018 2:57 PM PDTORTHO STAFF [...] call me for questions. GHASSAN SHERMAN MD [facility] [address] [address] [place] [address] documented in this encounter ED [...] (H) 0.70 - 1.30 mg/dL EGFR - CYMRO 39 (L) >60 mL/min EGFR NON -CYMRO 32 (L) >60 mL/min SODIUM, PLASMA (LAB) [...] total knee replacement in 2012 done in [facility]. Right k nee also became more swollen at that time, though without any warmth or redness. Pain worse with any movement and better at rest. He was evaluated by his PCP and started on coumadin for question of DVT, though RLE ultraso und was negative. Seen by Dr. René Yen (orthopedics) in [place] 06/09 with the following labs. 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 Laboratory and imaging results including ESR, CRP were reviewed and interpreted, and notabl e for the following: - significantly elevated ESR and CRP - arthrocentesis at [place] with 79,000 WBCs The patient received the [...] Information: Patient discharging to swing bed at [facility] in [facility]. Reviewed DC to SNF AVS with patient and family, all questions answered, reinforced fo llow up appointments per AVS. PICC line in RUE with dressing CDI at discharge. TINO dressing CDI with green light flashing at discharge. Telephone report given to FLY Vanegas at [facility] facility at 1125. Transportation provided by family in private vehicle. Patient dischar taye in stable condition with all belongings. Discharge Nurse: PADMINI MAGAÑA RN andoff - Galina Varela RN - 06/16/2018 11:09 PM PDTNursing Handoff Patient Daily Goal: rest (06/16/18 6545) Patient Specific Preferences: When asked if pt moves while he is in a recliner, he states " no, once I'm there I stay", education provided on importance of repositioning for pressure i njury prevention even in recliner chair. (06/15/18 3698) [facility] IP NURSE HANDOFF: [facility] course [...] njury prevention even in recliner chair. (06/15/18 4812) [facility] IP NURSE HANDOFF: [facility] hospital course [...] Met Case Management OPAT Plan of Care: [facility] hospital discharge date: 06/17/2018 This patient will be followed for all post hospital OPAT care needs by: [facility] OPAT/Infectiou s Diseases Clinic, ; IV antibiotic orders were provided to: Other vendor facility, Name: [facility] Swi ng Bed, , , Attn: [...] throughout session other than pt and therapist: prevocational/rehabilitation counselor Current unit: 9k Brief Hospital Course:Júnior Mas [...] with FWW: minimum assist, 15 feet with prevocational/rehabilitation counselor stand by assist and follow ing with wheelchair. Chair to chair transfer front wheeled walker and minimum assist Pt left up in recliner chair, call light/urinal and belongings all in reach. [facility] BASIC MOBILITY Difficulty turning over in [...] to do/total assistance - Total/Dependen t Assist [facility] Basic Mobility Total Score 14 Interpretation of [facility] Short Form - Basic Mobility: CMS [...] recommendations: to be determined . BRICE Blount 14120 andoff - Emily Covarrubias RN - 06/16/2018 [...] prevention even in recliner chair. (06/15/18 0953) [facility] IP NURSE HANDOFF: [facility] hospital course [...] As evidenced by: Poor intake tonight from 2141-3395 despite encouragement. He states that his water [...] njury prevention even in recliner chair. (06/15/18 5117) [facility] IP NURSE HANDOFF: [facility] hospital course [...] throughout session other than pt and therapist: prevocational/rehabilitation counselor and student observer Current unit: 9k [facility] Hospital Course: Júnior Mas is a [...] cell phone and water all in reach. [facility] BASIC MOBILITY Difficulty turning over in [...] to do/total assistance - Total/Dependen t Assist [facility] Basic Mobility Total Score 9 Interpretation of [facility] Short Form - Basic Mobility: CMS [...] Equipment recommendations: to be determined BRICE Blount [address] andoff - Maria Dolores Gurrola RN - [...] njury prevention even in recliner chair. (06/15/18 3428) [facility] IP NURSE HANDOFF: [facility] course [...] nutrient distribution type or amount Nutrition Assessment: rounding and backing machine operator received. Pt does not like [...] Mendez, MS, RD, LD, CNSC Pager #: [phone] Comments: Júnior Mas is a 78 y.o. 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 al medicine service with orthopedic sugery [...] 29.04 kg/m2 AdjBW: 71.5 kg Estimated needs: 9898-6449 kcal/day (25-30 kcal/kg AdjBW); 72-107 g protein/day (1-1.5 g/kg AdjBW) [place] - Justus Zapata, RN - 06/15/2018 3:49 AM PDTNursing Handoff [facility] IP NURSE HANDOFF: [facility] hospital course [...] RN - 06/14/2018 5:38 PM PDTNursing Handoff [facility] IP NURSE HANDOFF: [facility] hospital course [...] encourage meals. Monitor UOP- no ouput from 7915-2277. CHS notified- BMS ordered. encourage fluids. MOBILITY: [...] RN - 06/14/2018 2:13 PM PDTNursing Handoff [facility] IP NURSE HANDOFF: [facility] hospital course [...] PM PDT Physical Therapy Evaluation and Treatment [id number] JÚNIOR MAS [place] Day: 3 Date of : 1940 [...] than therapist and pt: patient and son; REGISTERED NURSE NURSERY surjit hylton with mobility portion of session. [...] going down ramp) Vision/Hearing: hearing aids (very ELIM IRA; states he refuses hearing aids) Patient / Family Goal: patient will not state; patient : For patient to return home. Language: Israeli. Barriers: Very ELIM IRA, not fully attentive. Pain: "lots"; refuses to [...] assist after focus on m idline. PT, REGISTERED NURSE NURSERY and patient encourage patient to get up to a chair, with assistance, patient r efused 4 times. Outcome Measure(s): 5 Time Sit to Stand: unable. >15 seconds predicts recurrent fallers [facility] BASIC MOBILITY Difficulty turning over in [...] to do/total assistance - Total/Dependen t Assist [facility] Basic Mobility Total Score 9 Interpretation of [facility] Short Form - Basic Mobility: CMS [...] underestimate Ended session: Patient supine in bed. REGISTERED NURSE NURSERY attending to patient. ASSESSMENT: Patient presents s/p [...] Patient will score 20 >/= 24/24 on AM-[facility] Basic Mobility outcomes measure upon discharge. [...] RN - 06/14/2018 2:37 AM PDTNursing Handoff [facility] IP NURSE HANDOFF: [facility] hospital course [...] RN - 06/13/2018 1:32 AM PDTNursing Handoff [facility] IP NURSE HANDOFF: [facility] hospital course [...] information: see anesthesia record Functional Epidural: No RECRUITMENT INTERN: No Respiratory: RR: 17, O2 Sat: 98 %, O2 Delivery: Nasal cannula Breath Sounds: WDL Except (SEUN - not diagnosed) TAYLOR: LLL: RUL: RLL: SEUN No Comment: none Cardiac: BP: 113/47 HR: 94 GI: Nausea/Vomiting Status: No Signs/Symptoms: Interventions: Assessment: Comments: toleratingPO : Last void: at 1900 Contact Name: Beth Contact Number: [phone] Family contacted: Yes Comment:updated family Belongings:none in PACU [facility] - Rahle Shaw RN - 06/12/2018 1:22 AM PDTTCRN [...] in the provider note. Sandra Valle MD [employer] ransfer Note - Arnie Busby ANP - 06/11/2018 3:19 PM PDT Call from Dr. Eric Yen, [facility] Pt with hx of CHF with significant fluid retention, right knee replacement, chronic leg ulc ers has infected total knee. Presented to clinic today with right knee swelling and pain. Right knee aspirate today: 79k white cells Markedly elevated CRP and sed rate Temp 99.4, vitals stable and normal Spoke with [facility] orthopedic surgeon Dr. Leon who advised transfer to [facility] ED Pt coming now via POV [facility] Rita Alex - 06/11/2018 3:19 PM PDTPt with post procedure infection, R total knee. Connected ref with ROCAEL Sanders. [facility] Rita Barker - 06/11/2018 2:09 PM PDTRef previously consulted [facility] ortho Dr. Maral Leon who advised PT to come to [facility] ED. Advised Dr. Yen to call [...] organism | | | | | | ([facility]) | | + +--------+ + + [...] organism | | | | | | ([facility]) | | + +--------+ + + [...] organism | | | | | | ([facility]) | | + +--------+ + + [...] - DARSHANA | [address] | [place], [place] | | | KIERRA POINT OF CARE | [address] | [address] | | | TESTS | | | [...] [facility] | [address] | [place] [address] | | | SERVICES, CORE | PARK [...] | | | LABORATORY | | | CYMRO | | | SERVICES, | | | [...] the MDRD equation recommended by the | [facility] | | National Kidney Disease Education [...] | + + + + + | [facility] | [address] [facility] | [place] [address] | | | SERVICES, CORE | MARY [...] [facility] | [address] | [place], [place] | | | OPHELIA LOZADA OF CARE | [facility] | [address] | | | TESTS | | | [...] [facility] | [address] | [place], [place] | | | KIERRA POINT OF CARE | [address] | [address] | | | TESTS | | | | + + + + + X-RAY PORTABLE CHEST 1 VIEW (06/16/2018 4:29 PM PDT) + + | Specimen | + + | | + + + + + | Narrative | Performed At | + + + | EXAM: CT CHEST 1 VIEW HISTORY: PICC placement. Prosthetic [...] Note | + + | Service Account, Netli In Interface - 06/16/2018 4:44 PM PDT EXAM: CT CHEST 1 | | VIEW HISTORY: PICC [...] necessary, edited the report. I agree with [facility] report as now presented. | | [...] draws Procedure location: | | | Unit:9 [facility] Room: 14 Providers: Attending name: Attending | | | physically present: No PICC Nurse name: Frances Fair CUT TO LENGTH OPERATOR | | | VAT Assisted by Christina March RN BSN VAT Pre-Procedure Consent: | | | written consent obtained Consent given by: Patient Patient | | | identity confirmed per protocol: Yes Team Pause: Immediatly prior to | | | the procedure a pause per protocol was called. A pause verifies | | | correct patient, procedure, equipment, bioinformatics support specialist and site/side | | | [...] | area Basilic vein. Catheter lot number: [id number] with a length of 55 | | [...] - BERNAAM | [address] | [place], [place] | | | KIERRA POINT OF CARE | [address] | [address] | | | TESTS | | | [...] [facility] | [address] | [place] [address] | | | SERVICES, CORE | PARK [...] | | | LABORATORY | | | CYMRO | | | SERVICES, | | | [...] | + + + + + | [facility] | [address] | [place] [address] | | | SERVICES, KAREEM | MARY [...] (H) | 70 - 99 mg/dL | [facility] - | | | GLUCOSE, | [...] [place] | [address] | [place], [place] | | | OPHELIA LOZADA OF FUAD | [facility] | [address] | | | TESTS | | | [...] [place] | [address] | [place], [place] | | | OPHELIA LOZADA OF FUAD | [address] | [address] | | | TESTS | | | [...] D[facility]SHANA | [address] | [place], [place] | | | KIERRA [facility] | [facility] | [address] | | | TESTS | | | [...] | + + + + + | [facility] | [address] | [place] [address] | | | SERVICES, CORE | MARY [...] | | | LABORATORY | | | CYMRO | | | SERVICES, | | | [...] | + + + + + | [facility] | [address] | [place] [address] | | | SERVICES, CORE | PARK [...] | + + + + + | [facility] | [address] | [place] [address] | | | SERVICES, CORE | PARK [...] [facility] | [address] | [place] [address] | | | KAREEM FINCH | MARY [...] [facility] | [address] | [place] [address] | | | SERVICES, CORE | PARK [...] | + + + + + | [facility] | [address] | [place] [address] | | | SERVICES, CORE | MARY [...] + + + + | [facility] | [address] | [place], [place] | | | [facility] | [address] | [address] | | | TESTS | | | [...] | | | LABORATORY | | | CYMRO | | | SERVICES, | | | [...] is appropriate. | LABORATORY | | Page [phone] or call [phone] with questions. Thank you. GFR is | [...] | + + + + + | [facility] | [address] | [place] [address] | | | SERVICES, CORE | PARK [...] | + + + + + | [facility] | [address] | [place] [address] | | | SERVICES, CORE | PARK [...] is appropriate. | LABORATORY | | Page [phone] or call [phone] with questions. Thank you. | SERVICES, CORE | + + + + + + + + | Performing | Address | City/State/Zipcode | Phone Number | | Organization | | | | + + + + + | [facility] | [address] | [place] [address] | | | SERVICES, CORE | MARY [...] (H) | 70 - 99 mg/dL | [facility] - | | | GLUCOSE, | [...] [place] | [address] | [place], [place] | | | OPHELIA LOZADA OF CARE | [address] | [address] | | | TESTS | | | [...] MARQU[facility] | [address] | [place], [place] | | | OPHELIA LOZADA OF CARE | [address] | [address] | | | TESTS | | | [...] [facility] | [address] | [place] [address] | | | SERVICES, CORE | PARK [...] | | | LABORATORY | | | CYMRO | | | SERVICES, | | | [...] | + + + + + | [facility] | [address] | [place] [address] | | | SERVICES, CORE | PARK [...] [place] | [address] | [place], [place] | | | OPHELIA LOZADA OF FUAD | [facility] | [address] | | | TESTS | | | [...] BER[place]AM | [address] | [place], [place] | | | OPHELIA LOZADA OF CARE | [facility] | [address] | | | TESTS | | | [...] (H) | 70 - 99 mg/dL | [facility] - | | | GLUCOSE, | [...] [place] | [address] | [place], [place] | | | OPHELIA LOZADA OF CARE | [address] | [address] | | | TESTS | | | [...] + + | ECG | Borderline prolonged CT | | [facility] | | | [...] DEPT OF | [address] | [place], [place] | | | CARDIOLOGY | [address] | [address] | | + + + + + [...] + + + | [facility] | [address] | [place], [place] | | | KIERRA POINT OF CARE | [address] | [address] | | | TESTS | | | [...] | + + + + + | [facility] | [address] | [place] [address] | | | SERVICES, CORE | PARK [...] | | | LABORATORY | | | CYMRO | | | SERVICES, | | | [...] | + + + + + | [facility] | [address] | [place] [address] | | | SERVICES, CORE | [address] | | | + + + + + MAGNESIUM, PLASMA (06/12/2018 10:24 PM PDT) + +-------+ + + + | Component | Value | Ref Range | Performed | Pathologist | | | | | At | Signature | + +-------+ + + + | MAGNESIUM,P | 1.8 | 1.6 - 2.6 mg/dL | [facility] | | | LASMA | | | [...] [facility] | [address] | [place] [address] | | | SERVICES, KAREEM | MARY [...] | | | LABORATORY | | | CYMRO | | | SERVICES, | | | [...] the MDRD equation recommended by the | [facility] | | National Kidney Disease Education Program. [...] [facility] | [address] | [place] [address] | | | SERVICES, CORE | MARY [...] | + + + + + | [facility] | [address] | [place] [address] | | | SERVICES, | [address] [...] [facility] | [address] | [place] [address] | | | SERVICES, | [address] [...] [facility] | [address] | [place] [address] | | | SERVICES, CORE | PARK [...] [facility] | [address] | [place] [address] | | | SERVICES, | [address] [...] | + + + + + | [facility] | [address] | [place] [address] | | | KAREEM FINCH | MARY [...] [facility] | [address] | [place], [place] | | | KIERRA POINT OF CARE | [address] | [address] | | | TESTS | | | [...] | | | LABORATORY | | | CYMRO | | | SERVICES, | | | [...] [facility] | [address] | [place] [address] | | | SERVICES, CORE | PARK [...] | + + + + + | [facility] | [address] | [place] [address] | | | SERVICES, KAREEM | PARK [...] + | [facility] | [address] [facility] | [place], [place] | | | KIERRA [facility] | [address] | [address] | | | TESTS | | | | + + + + + PROCEDURE NOTE (06/12/2018 2:57 PM PDT) + + + | Narrative | Performed At | + + + | Ghassan Sherman MD 06/17/2018 2:15 PM Date of Service: | | | 08/01/2015 Attending Surgeon: Ghassan Sherman MD | | | Entry Level Web Developer(s): mesfin thompson MD Preoperative Diagnosis: 1. 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 Postoperative Diagnosis: | | | same Procedures Performed: 1. Right knee arthrotomy with | | | drainage for infection and polyethylene exchange 2. Application | | | TINO disposible negative pressure wound therapy dressing right knee | | | [id number] Anesthesia: General endotracheal anesthesia. | | | Implants: excahgned alisha triathalon poly size 15, 13mm EBL: 50 | | | Complications: None Specimens: 6 cultures, 1 path Indication | | | For Procedure: Solo Alves was transferred to [facility] for sepsis | | | after [...] | | stands. Ghassan Sherman MD, MPH Guard Lieutenant, Dept. of | | | Orthopaedics [facility] [address] | | | [address]ic[address]. [address] [place] [address] | | | [email or web address] | | + + + CAPILLARY BLOOD GLUCOSE (NO CHG), POC (06/12/2018 2:42 PM PDT) + +---------+ + + + | Component | Value | Ref Range | Performed | Pathologist | | | | | At | Signature | + +---------+ + + + | BLOOD | 134 (H) | 70 - 99 mg/dL | [facility] - | | | GLUCOSE, | [...] [place] | [address] | [place], [place] | | | OPHELIA LOZADA OF CARE | [address] | [address] | | | TESTS | | | [...] D[facility]NA | [address] | [place], [place] | | | OPHELIA LOZADA OF FUAD | [address] | [address] | | | TESTS | | | [...] Propionibacterium due to growth of other | [facility] | | organsims. Gram Stain: No squamous epithelial cells Moderate | | | polymorphonuclear cells No organisms seen | | + + + + + + + + | Performing | Address | City/State/Zipcode | Phone Number | | Organization | | | | + + + + + | [facility] | [address] | [place] [address] | | | [place] | | | [...] - | | | | | | [facility] | | + + + [...] Propionibacterium due to growth of other | [place] | | organsims. Gram Stain: No squamous epithelial cells No | | | polymorphonuclear cells No organisms seen | | + + + + + + + + | Performing | Address | City/State/Zipcode | Phone Number | | Organization | | | | + + + + + | [facility] | [address] | [place] [address] | | | [place] | | | [...] - | | | | | | [place] | | + + + + + [...] + | [facility] - | [address] | [place] [address] | | | [place] | | | | + + + [...] - | | | | | | [facility] | | + + + [...] | + + + + + | [facility] - | [address] | [place] [address] | | | [place] | | | | + + + [...] | + + + + + | [facility] - | [address] | [place] [address] | | | [place] | | | | + + + [...] | | | | | | number [phone].A. Knee, | | | | | | [...] | + + + + + | [facility] | [address] | [place] [address] | | | PATHOLOGY | [address] [...] | + + + + + | [facility] - | [address] | [place] [address] | | | [place] | | | | + + + [...] [place] | [address] | [place], [place] | | | OPHELIA LOZADA OF CARE | [address] | [address] | | | TESTS | | | [...] [facility] | [address] | [place], [place] | | | KIERRA POINT OF CARE | [address] | [address] | | | TESTS | | | [...] + + | [facility] | [address] [facility] [address] | [place], [place] | | | [facility] | [address] | [address] | | | TESTS | | | [...] [facility] | [address] | [place] [address] | | | SERVICES, KAREEM | PARK [...] | + + + + + | [facility] | [address] | [place] [address] | | | SERVICES, CORE | MARY [...] | + + + + + | [email or web address] | [address] | [place] [address] | | | SERVICES, CORE | MARY [...] [facility] | [address] | [place] [address] | | | SERVICES, CORE | PARK [...] | + + + + + | [facility] | [address] | [place] [address] | | | SERVICES, | [address] [...] | + + + + + | [facility] | [address] [facility] | [place] [address] | | | SERVICES, CORE | MARY [...] | | | LABORATORY | | | CYMRO | | | SERVICES, | | | [...] | + + + + + | [facility] | [address] [facility] | [place] [address] | | | SERVICES, CORE | MARY [...] | + + + + + | [facility] | [address] [facility] | [place] [address] | | | KAREEM FINCH | MARY [...] | + + + + + | [facility] | [address] | [place] [address] | | | SERVICES, KAREEM | MARY [...] | + + + + + | [facility] | [address] | [place] [address] | | | SERVICES, CORE | PARK [...] | + + + + + | [facility] | [address] | [place] [address] | | | SERVICES, CORE | [address] | | | + + + + + ED INFORMATION EXCHANGE (06/11/2018 6:04 PM PDT) + + | Specimen | + + | | + + + + + | Narrative | Performed At | + + + | [id number] This patient has registered at the [place] | [facility] | | [facility] For more | MEDICAL | | information visit: | TECHNOLOGIES | | [email or web address] | | | 35ffec Security Events No [...] Chief Complaint Aug | | | 2017 [facility] [place] Emergency | | | Emergency 10,800. REF Recent Inpatient Visit | | | Summary No recorded inpatient visits. E.D. Visit Count (12 mo.) | | | Facility Visits [facility] 1 Total 1 | | [...] | | facilities for additional information. 2018 [employer] | | | [employer] - [place], [place] - | | | [email or web address] | | + + + + + | Procedure Note | + + | Service Account, Rtf Results Inbound - 06/11/2018 6:06 PM PDT Formatting of this | | note might be different from the original.DANIEL?NOTIFICATION?06/11/2018 18:04?MAXWELL, | | JÚNIOR? patient has registered at the [facility] | | [place] [facility] For more information visit: | | [email or web address] | | EventsNo recent Security Events currently on fileED Care GuidelinesThere are currently | | no ED Care Guidelines in DANIEL for this patient. Please check your facility's medical | | records system.Recent Emergency Department Visit SummaryAdmit Date Facility [facility] | | Type Major Type Diagnoses or Chief Complaint Jun 11, 2018 [facility] | | [facility] [place] Emergency Emergency 10,800. REF Recent Inpatient Visit | | SummaryNo recorded inpatient visits. E.D. Visit Count (12 mo.)Facility Visits [place] | | [facility] 1 Total 1 Note: Visits indicate total [...] aforementioned facilities for additional information. ? 2018 [employer] | | [employer] - [place], [place] - [email or web address] | |Facility Visits | |[facility] 1 | |Total 1 | [...] facilities for additional information. | |? 2018 [employer]. 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
--- OUTSIDE RECORDS SUMMARY | ~2020-06-19 | XMS | Encounter Summary ---
Demographics + + + | Address | [address] | | | [place] [address] | + + + | Home Phone [...] Team Providers + +------+ + | Care Commissary Assistant Name | Role | Phone | [...] | | | | Loop [facility] | [place], [place] | | | | | [place], [facility] floor | [address] | | | | | [place], [place] | [phone] | | | | | [address] | | | | | | [phone] | | | +--------+ + + + [...] PSTDr. Dimitri Sidhu, pt's de ntist in [place], called stating pt is having burning sensation in his mouth. Dr. Sidhu i nquired about which medication should be presciribd that won't interfere with Keflex. He can be reached at: [phone] [email or web address] signed by Layne Huang at 10/07/2018 5:01 PM PSTdocumented in this encounter Plan of Treatment Not on filedocumented as of this encounter Visit Diagnoses Not on filedocumented in this encounter"
--- OUTSIDE RECORDS SUMMARY | ~2020-06-19 | XMS | Encounter Summary ---
Demographics + + + | Address | [address] | | | [place] [address] | + + + | Home Phone | | + + + | Preferred Language | Unknown | + + + | Marital Status | Unknown | + + + | Episcopal Affiliation | PRO | + + + [...] + +------+ + | Care Embedded Software Manager Name | Role | Phone | [...] | | | | and | | [address] | | | | | inflammatory | | [place] [address] | | | | | reaction | | [address] [place], | | | | | due to | | [place] | | | | | internal | | [address] | | | | | right knee | | Phone: | | | | | prosthesis, | | [phone] | | | | | initial | | Fax: | | | | | encounter | | [phone] | +--------+--------+ + + + + Encounter [...] | | | | Loop [facility] | [facility] [place] | subsequent encounter | | | | [place], 3rd floor | [address] | (Primary Dx); Long | | | | [place], [place] | [phone] | term (current) use | | | | [address] | | of antibiotics | | | | [phone] | | | +--------+---------+ + + + [...] he was briefly hospitalized since discharge from [facility] for ALVINO. Cr now back at [...] mouth once daily., Disp: , Rfl: antiox. 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
--- OUTSIDE RECORDS SUMMARY | ~2020-06-19 | XMS | Encounter Summary ---
Demographics + + + | Address | [address] | | | [place] [address] | + + + | Home Phone [...] Team Providers + +------+ + | Care Broadcast Supervisor Name | Role | Phone | [...] | | | | Loop Physician[facility] | [place], [place] | | | | | Pavilion, 3rd floor | [address] | | | | | [place], [place] | [phone] | | | | | [address] | | | | | | [phone] | | | +--------+ + + + [...] 07/27/2018 9:17 AM PDTSpoke with Cierra fernando [facility] [phone] and she confirmed that the patient's PICC line is being pulled t his morning. I will call back to for confirmation this afternoon. documented in this encounter Plan of Treatment Not on filedocumented as of this encounter Visit Diagnoses Not on filedocumented in this encounter"
--- OUTSIDE RECORDS SUMMARY | ~2020-06-19 | XMS | Encounter Summary ---
Demographics + + + | Address | [address] | | | [place] [address] | + + + | Home Phone [...] Team Providers + +------+ + | Care Lime Mixer Name | Role | Phone | [...] | | | | Loop Physician's | [place], [place] | | | | | [place], [facility] floor | [address] | | | | | [place], [place] | [phone] | | | | | [address] | | | | | | [phone] | | | +--------+ + + + [...] that the patient has been admitted to [facility] as of yesterday. He is in [...]
--- OUTSIDE RECORDS SUMMARY | ~2020-06-19 | XMS | Encounter Summary ---
Demographics + + + | Address | [address] | | | [place] [address] | + + + | Home Phone [...] Team Providers + +------+ + | Care Ophthalmic Assistant Name | Role | Phone | [...] | | | | Loop Physician's | [place], [place] | | | | | [place], [facility], [place] floor | [address] | | | | | [place], [place] | [phone] | | | | | [address] | | | | | | [phone] | | | +--------+--------+ + + + [...]
--- OUTSIDE RECORDS SUMMARY | ~2020-06-19 | XMS | Encounter Summary ---
Demographics + + + | Address | [address] | | | [place] [address] | + + + | Home Phone | | + + + | Preferred Language | Unknown | + + + | Marital Status | | + + + | Pentecostal Affiliation | 1077 | + + + | Race | White | + + + | Ethnic Group | Not or | + + + Author + + + | Author | [facility] | | | and [place] | + + + | Organization | [facility] | | [...] Providers + +------+ + | Care Drop Clipper Name | Role | Phone | + [...] 02/08/ | [facility] | [facility] | Willow Colin MD | | | 2019 | Encounter | MED CTR OR PRE OP | [address] | | | | | [address] | [address], | | | | | [place] [address] | [place] [address] | | | | | [phone] | [phone] | | | | | | | [...] | | | Oral Anticoagulation | | [place] | | | | Range: 2.0 [...] + + | [facility] | [address] | [place] | [phone] | | [facility] | | [address] | | | - LABORATORY | | [...] ONCE PRN, | | | Wheezing, Starting Fri02/08/19 at | | | 1516, For 1 [...] glucose < 50, | | | Starting Fri02/08/19 at 1516, | | | Repeat in [...] | mL/hr | | | CONTINUOUS, Starting 4/15/19 | | PM PDT | | | | | at 1545, TKO., Pre-op | | | | | | + +---------+ +---+-------+---+ +---+---+ | | | +---+---+ documented in this encounter
--- OUTSIDE RECORDS SUMMARY | ~2020-06-19 | XMS | Clinical Summary ---
Demographics + + + | Address | [address] | | | [place] [address] | + + + | Home Phone [...] Team Providers + +------+ + | Care Hydrogen Treater Name | Role | Phone | + +------+ + | Gilberto Estrada MD | PCP | | + +------+ + Source Comments WHITNEY is fully live on both [facility] Ambulatory and [facility] InPatient.Count Includes [facility] Allergies + + + + + + | Active Allergy | Reactions | Severity | Noted | Comments | | | | | Date | | + + + + + + | Nsaids | Renal Failure | High | 06/14/20 | Avoid per | | (Non-Steroidal | | | 18 | Stone Rigger | | Anti-Inflammatory | | | | [...] 0 | | | Activ | | no.[id number] | mouth once daily. 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 to | 06/11/2018 | [...] Right: | MARIALUISA | | 11/26/ | 6930-[id number] | | 13mm Implanted: Qty: 1 on | | Knee | | | 2019 | -51 / | | 06/12/2018 by Sandoval Hyde | | | | | | | | MD Leanne at [facility] RE[facility] | | | | | [...] + +--------+ | MEDICARE | MEDICA | [id number] | 01/26/20 | [phone] | [address] | Medica | | | RE A & | | 15-Pre | 1 | [phone] | re | | | B | | sent | | [place] | | | | | | | | [phone] | | + +--------+ +--------+ + +--------+ | COMMERCIAL GROUP | COMMER | [id number] | 10/27/19 | | | Indemn | [...] Person | Self | [birth year] | | [address] | | | al/Jamin | | 1940 | [phone] | [place] [address] | | | afshan | | | [...]
--- OUTSIDE RECORDS SUMMARY | ~2020-06-19 | XMS | Encounter Summary ---
Demographics + + + | Address | [address] | | | [place] [address] | + + + | Home Phone | | + + + | Preferred Language | Unknown | + + + | Marital Status | | + + + | Gnosticism Affiliation | 1077 | + + + | Race | White | + + + | Ethnic Group | Not or | + + + Author + + + | Author | [facility] | | | and [place] | + + + | Organization | [facility] | | [...] Team Providers + +------+ + | Care Slurry Man Name | Role | Phone | + [...] | | | | | | | ID | | | | | | | ESOPHAGOGAST | | | | | | | RODUODENOSCO | | | | | | | PY TRANSORAL | | | | | | | DIAGNOSTIC | | | | | | | ID EGD | | | | | | | BALLOON | | | | | | | DILATION | | | | | | | ESOPHAGUS | | | | | | | <30 MM DIAM | | | | | | | ID | | | | | | | [...] + + | 07/31/ | Surgery | [facility] | Willow Colin MD | EGD with Dilation | | 2017 | | MED CTR MP INTRA OP | [address] | | | | | [address] | [address], | | | | | [place], [place] | [place] [address] | | | | | [address] | [phone] | | | | | [phone] | | | +--------+---------+ + + + [...] fluids. 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 operations support representative omeprazole at [place]. documented in this encounter Medications at [...] Electronically signed Willow Colin MD 07/31/2017 14:06 [facility] 2:1 1 PM PDTOp Note - Willow [...] [address] | [place] | [phone] | | [facility] | | [address] | | | - LABORATORY | | [...] Negative for Helicobacter pylori with HE stain. [facility]:caw:[id number] GROSS | | | DESCRIPTION: A. [...] technical and professional components were performed by [employer] | | | [place], [address] [place] [address] | | | (Outpatient Clerk: Don Morrell D.O.; [facility]#: [id number]). | | | Diagnostician: Gavin Michaud MD [...]
--- OUTSIDE RECORDS SUMMARY | ~2020-06-19 | XMS | Encounter Summary ---
Demographics + + + | Address | [address] | | | [place] [address] | + + + | Home Phone [...] Team Providers + +------+ + | Care Fish And Wildlife Technician Name | Role | Phone | [...] | | | | Loop Physician's | [place], [place] | | | | | [place], [facility] floor | [address] | | | | | [place], [place] | [phone] | | | | | [address] | | | | | | [phone] | | | +--------+--------+ + + + [...]
--- OUTSIDE RECORDS SUMMARY | ~2020-06-19 | XMS | Encounter Summary ---
Demographics + + + | Address | [address] | | | [place] [address] | + + + | Home Phone [...] Team Providers + +------+ + | Care Rock Lather Name | Role | Phone | + [...] | | | | | [address] | [place] | | | | | [place] | [address] | | | | | [address] | | | | | | [phone] | | | +--------+ + + + [...] 1300 by | | eral | Hand; ofez-kbx-cwulrt catheter | Fred Mendoza RN | Fred [...] EVALUATION Duane Mas 77 y.o. male 1940 [id number] Procedure(s) EGD with Dilation (N/A Mouth) Cooperates? [...] by Ld Corado MD 07/31/2017 12:[address] [facility] signed by Ld Corado MD at 02/2017 12:45 PM PDTAnesthesia Preprocedure Evaluation - Ld Corado MD - 07/30/2017 11: 41 AM PDT ANESTHESIA PREANESTHESIA EVALUATION Duane aMs 77 y.o. male 1940 [id number] Procedure(s): EGD with Dilation (N/A Mouth) Medical [...] | propofol (DIPRIVAN) injection | Given | 07/31/20 | 20 mg | | | | Intravenous, PRN, Starting Zandra | | 17 12:32 | | | | | 07/31/17 at 1228, Anesthesia | | PM PDT | | | | | Intra-op | | | | | | + +-------+ +-------+---+---+ +-------+ +-------+---+---+ | Given | 10/20 | 20 mg | | | | | 17 12:30 | | | | | | PM PDT | | | | +-------+ +-------+---+---+ | Given | 20 | 70 mg | | | | | 17 12:28 | | | | | | PM PDT | | | | +-------+ +-------+---+---+ +---+---+ | | | +---+---+ documented in this encounter"
--- OUTSIDE RECORDS SUMMARY | ~2020-06-19 | XMS | Encounter Summary ---
Demographics + + + | Address | [address] | | | [place] [address] | + + + | Home Phone [...] Team Providers + +------+ + | Care Forest Fire Lookout Name | Role | Phone | + +------+ + PCP | Unavailable | + +------+ + Encounter Details +--------+ + + + + | Date | Type | Department | Care Team | Description | +--------+ + + + + | 10/25/ | Emergency | [facility] | Syed Winchester | Fever, unspecified | | 2016 | | MEDICAL CENTER | DO Don [address] | fever cause; | | | | EMERGENCY CENTER | [address] | Leukocytosis, | | | | [address] | [place] | unspecified type | | | | [facility] [place] | [address] | | | | | [address] | [phone] | | | | | [phone] | | | +--------+ + + + [...] 0313 Date of Service: 10/25/162035 Status: Signed Glue Maker: Syed Winchester DO (Physician) [facility] Department of Emergency Medicine 8:37 PM History [...] - TOTAL; Surgeon: Drew Hurst MD; Location: [facility] [place]; Serv e: Orthopedics; Laterality: Right; [...] (two) times daily as needed. Historical Provider [place]-3 Fatty Acids (FISH OIL) 1200 MG CAPS [...] 10:40 PM Discussed case with Dr. Ha, Drapery Inspector, who requests that the patient be st [...] Date/Time Urinalysis (reflex to microscopic/reflex to culture) [[id number]] (Abnormal) Collected: 10/25/162218 Order Status: Completed Specimen Information: Urine, Clean Catch Updated: 10/25/16 22 34 COLOR UA YELLOW CLARITY CLEAR Specific [place], UA 1.020 1.002 - 1.030 LEUKOCYTE ESTERASE NEGATIVE NEGATIVE NITRITE NEGATIVE NEGATIVE UROBILINOGEN NORMAL <1.1 mg/dL PROTEIN NEGATIVE NEGATIVE mg/dL PH,URINE 5.0 5.0 - 8.0 BLOOD NEGATIVE NEGATIVE KETONES NEGATIVE NEGATIVE mg/dL BILIRUBIN NEGATIVE NEGATIVE GLUCOSE 50 (A) NEGATIVE mg/dL Influenza Antigen [[id number]] Collected: 10/25/162104 Order Status: Completed Specimen Information: Nasopharyngeal from Nasopharyngeal Cultur e Updated: 10/25/162141 INFLUENZA A NEGATIVE NEGATIVE INFLUENZA B NEGATIVE NEGATIVE Complete Metabolic Panel [[id number]] (Abnormal) Collected: 10/25/162102 Order Status: Completed Specimen [...] (L) >60 mL/min/1.73m2 CBC w Auto Diff [[id number]] (Abnormal) Collected: 10/25/162102 Order Status: Completed Specimen [...] fol low up and evaluation [address] [facility][note 2] [address] Tita Christopher MD Call in 1 week As needed for further follow up and evaluation [address] [facility] [address] [place] [phone] [facility] Emergency Department If symptoms worsen [address] [facility] [address] Discharge Medications: Discharge Medication List as of [...] Rocky, Rad Conversion - 06/10/2019 6:48 PM PDT JÚNIOR [id number] yearsXR CHEST | | 2 VIEW FRONTAL AND VEHEZXR6810/25/2016 10:32 PM INDICATION: Fever. TECHNIQUE: 2 views [...] EXTERNAL | | | | performed at [facility];[address] | | LAB | | | | [address];[place] | | | | | | [address] | | | | + + + + + + | Clarity, | CLEARComment: Testing | | EXTERNAL | | | Urine | performed at [facility];[address] | | LAB | | | | [address];[place] | | | | | | [address] | | | | + + + + + + | Specific | 1.020Comment: Testing | 1.002 - 1.030 | EXTERNAL | | | [place], | performed at [facility];[address] | | LAB | | | Urine | [address];[place] | | | | | | [address] | | | | + + + + + + | Leukocyte | NEGATIVEComment: Testing | | EXTERNAL | | | Esterase, | performed at [facility];[address] | | LAB | | | Urine | [address];[place] | | | | | | [address] | | | | + + + + + + | Nitrite, | NEGATIVEComment: Testing | | EXTERNAL | | | Urine | performed at [facility];[address] | | LAB | | | | [address];[place] | | | | | | [address] | | | | + + + + + + | Urobilinoge | NORMALComment: Testing | mg/dL | EXTERNAL | | | n, Urine | performed at [facility];[address] | | LAB | | | | [address];[place] | | | | | | [address] | | | | + + + + + + | Protein, | NEGATIVEComment: Testing | mg/dL | EXTERNAL | | | Urine | performed at [facility];[address] | | LAB | | | | [address];[place] | | | | | | [address] | | | | + + + + + + | pH, Urine | 5.0Comment: Testing | 5.0 - 8.0 | EXTERNAL | | | | performed at [facility];[address] | | LAB | | | | [address];[place] | | | | | | [address] | | | | + + + + + + | Blood, | NEGATIVEComment: Testing | | EXTERNAL | | | Urine | performed at [facility];[address] | | LAB | | | | [address];[place] | | | | | | [address] | | | | + + + + + + | Ketones | NEGATIVEComment: Testing | mg/dL | EXTERNAL | | | | performed at [facility];[address] | | LAB | | | | [address];[place] | | | | | | [address] | | | | + + + + + + | Bilirubin, | NEGATIVEComment: Testing | | EXTERNAL | | | Urine | performed at [facility];[address] | | LAB | | | | [address];[place] | | | | | | [address] | | | | + + + + + + | Glucose, | 50 (A)Comment: Testing | mg/dL | EXTERNAL | | | Urine | performed at [facility];[address] | | LAB | | | | [address];[place] | | | | | | [address] | | | | + + + [...] | performed by ICA Testing performed at [facility];[address] [place] [address];[place], [place] | | | [address] INFLUENZA B NEGATIVE | | | Testing performed by ICA Testing performed at [facility];[address] | | | [facility];[place] [address] | | + + + + +---------+ + + | Performing | Address | City/State/Zipcode | Phone Number | | Organization | | | | + +---------+ + + | EXTERNAL LAB | | | | + +---------+ + + External Lab: [facility] (10/25/2016 9:03 PM PST) + + + + + + | Component | Value | Ref Range | Performed | Pathologist | | | | | At | Signature | + + + + + + | WBC | 12.07 (H)Comment: | 3.80 - 11.00 | EXTERNAL | | | | Testing performed at | K/uL | LAB | | | | [facility];[address];[place] [address] | | | | + + + + + + | Non- | 5.15Comment: Testing | 4.20 - 5.70 | EXTERNAL | | | Red Blood | performed at [facility];[address] | M/uL | LAB | | | Cells | [address];[place] | | | | | Counted | [address] | | | | + + + + + + | Hemoglobin | 15.7Comment: Testing | 13.2 - 17.0 | EXTERNAL | | | | performed at [facility];[address] | g/dL | LAB | | | | [address];[place] | | | | | | [address] | | | | + + + + + + | Hematocrit, | 46.2Comment: Testing | 39.0 - 50.0 % | EXTERNAL | | | POC | performed at [facility];[address] | | LAB | | | | [address];[place] | | | | | | [address] | | | | + + + + + + | MCV | 89.6Comment: Testing | 80.0 - 100.0 fl | EXTERNAL | | | | performed at [facility];[address] | | LAB | | | | [address];[place] | | | | | | [address] | | | | + + + + + + | MCH | 30.4Comment: Testing | 27.0 - 34.0 pg | EXTERNAL | | | | performed at [facility];[address] | | LAB | | | | [address];[place] | | | | | | [address] | | | | + + + + + + | MCHC | 33.9Comment: Testing | 32.0 - 35.5 | EXTERNAL | | | | performed at [facility];888 | g/dL | LAB | | | | [address];[place] | | | | | | [address] | | | | + + + + + + | RDW-CV | 48.1Comment: Testing | 37 - 53 fl | EXTERNAL | | | | performed at [facility];[address] | | LAB | | | | [address];[place] | | | | | | [address] | | | | + + + + + + | Platelet | 99 (L)Comment: Testing | 150 - 400 K/uL | EXTERNAL | | | Count | performed at [facility];[address] | | LAB | | | Plasma | [address];[place] | | | | | | [address] | | | | + + + + + + | MPV | 8.7Comment: Testing | fl | EXTERNAL | | | | performed at [facility];[address] | | LAB | | | | [address];[place] | | | | | | [address] | | | | + + + + + + | Differentia | AUTOMATEDComment: | | EXTERNAL | | | l Type | Testing performed at | | LAB | | | | [facility];[address];[place] [address] | | | | + + + + + + | % Segmented | 83.01Comment: Testing | % | EXTERNAL | | | | performed at [facility];[address] | | LAB | | | Neutrophils | [address];[place] | | | | | | [address] | | | | + + + + + + | % | 8.29Comment: Testing | % | EXTERNAL | | | Lymphocytes | performed at [facility];[address] | | LAB | | | | [address];[place] | | | | | | [address] | | | | + + + + + + | % Monocytes | 7.46Comment: Testing | % | EXTERNAL | | | | performed at [facility];[address] | | LAB | | | | [address] | | | | | | [address] | | | | + + + + + + | % | 0.85Comment: Testing | % | EXTERNAL | | | Eosinophils | performed at [facility];[address] | | LAB | | | | [address];[place] | | | | | | [address] | | | | + + + + + + | % Basophils | 0.39Comment: Testing | % | EXTERNAL | | | | performed at [facility];[address] | | LAB | | | | [address];[place] | | | | | | [address] | | | | + + + + + + | Absolute | 10.02 (H)Comment: | 1.90 - 7.40 | EXTERNAL | | | Segmented | Testing performed at | K/uL | LAB | | | Neutrophils | [facility];[address];[place] [address] | | | | + + + + + + | Absolute | 1.00Comment: Testing | 1.00 - 3.90 | EXTERNAL | | | Lymphocytes | performed at [facility];[address] | K/uL | LAB | | | | [address];[place] | | | | | | [address] | | | | + + + + + + | Absolute | 0.90 (H)Comment: Testing | 0.00 - 0.80 | EXTERNAL | | | Monocytes | performed at [facility];[address] | K/uL | LAB | | | | [address];[place] | | | | | | [address] | | | | + + + + + + | Absolute | 0.10Comment: Testing | 0.00 - 0.50 | EXTERNAL | | | Eosinophils | performed at [facility];[address] | K/uL | LAB | | | | [address];[place] | | | | | | [address] | | | | + + + + + + | Absolute | 0.05Comment: Testing | 0.00 - 0.10 | EXTERNAL | | | Basophils | performed at [facility];[address] | K/uL | LAB | | | | [address];[place], [place] | | | | | | [address] | | | | + + + [...] EXTERNAL | | | | performed at [facility];888 | mmol/L | LAB | | | | [address];[place] | | | | | | [address] | | | | + + + + + + | K | 3.6Comment: Testing | 3.5 - 4.9 | EXTERNAL | | | | performed at [facility];[address] | mmol/L | LAB | | | | [address];[place] | | | | | | [address] | | | | + + + + + + | Cl | 95 (L)Comment: Testing | 99 - 109 mmol/L | EXTERNAL | | | | performed at [facility];[address] | | LAB | | | | [address];[place] | | | | | | [address] | | | | + + + + + + | CO2 | 29Comment: Testing | 23 - 32 mmol/L | EXTERNAL | | | | performed at [facility];[address] | | LAB | | | | [address];[place] | | | | | | [address] | | | | + + + + + + | Anion Gap | 17Comment: Testing | 5 - 20 mmol/L | EXTERNAL | | | | performed at [facility];[address] | | LAB | | | | [address] | | | | | | [address] | | | | + + + + + + | Glucose, | 117 (H)Comment: Testing | 65 - 99 mg/dL | EXTERNAL | | | Fasting | performed at [facility];[address] | | LAB | | | | [address] | | | | | | [address] | | | | + + + + + + | BUN | 25Comment: Testing | 8 - 25 mg/dL | EXTERNAL | | | | performed at [facility];[address] | | LAB | | | | [address];[place] | | | | | | [address] | | | | + + + + + + | Creatinine | 1.6 (H)Comment: Testing | 0.70 - 1.30 | EXTERNAL | | | | performed at [facility];888 | mg/dL | LAB | | | | [address];[place] | | | | | | [address] | | | | + + + + + + | BUN/Creatin | 16Comment: Testing | | EXTERNAL | | | ine Ratio | performed at [facility];[address] | | LAB | | | | [address];[place] | | | | | | [address] | | | | + + + + + + | Calcium | 8.4 (L)Comment: Testing | 8.5 - 10.5 | EXTERNAL | | | | performed at [facility];888 | mg/dL | LAB | | | | [address];[place] | | | | | | [address] | | | | + + + + + + | Protein, | 7.7Comment: Testing | 6.3 - 8.2 g/dL | EXTERNAL | | | Total | performed at [facility];[address] | | LAB | | | | [address];[place] | | | | | | [address] | | | | + + + + + + | Albumin | 3.5Comment: Testing | 3.3 - 4.8 g/dL | EXTERNAL | | | | performed at [facility];[address] | | LAB | | | | [address];[place] | | | | | | [id number] | | | | + + + + + + | Globulin | 4.2Comment: Testing | 1.3 - 4.9 g/dL | EXTERNAL | | | | performed at [facility] [place];[address] | | LAB | | | | [address];[place] | | | | | | [id number] | | | | + + + + + + | A/G Ratio | 0.8 (L)Comment: Testing | 1.0 - 2.4 | EXTERNAL | | | | performed at [facility] [place];[address] | | LAB | | | | [address];[place] | | | | | | [address] | | | | + + + + + + | Bilirubin | 1.4Comment: Testing | 0.1 - 1.5 mg/dL | EXTERNAL | | | Total | performed at [facility] [place];[address] | | LAB | | | | [address];[place] | | | | | | [address] | | | | + + + + + + | ALP, | 52Comment: Testing | 35 - 115 U/L | EXTERNAL | | | External | performed at [facility] [place];[address] | | LAB | | | | [address];[place] | | | | | | [address] | | | | + + + + + + | AST | 24Comment: Testing | 10 - 45 U/L | EXTERNAL | | | | performed at [facility] [place];[address] | | LAB | | | | [address];[place] | | | | | | [address] | | | | + + + + + + | ALT | 23Comment: Testing | 10 - 65 U/L | EXTERNAL | | | | performed at [facility] [place];[address] | | LAB | | | | [address];[place] | | | | | | [address] | | | | + + + [...] | | | | | | at [facility] [place];[address] | | | | | | [address];[place] [phone] | | | | + + + [...]
--- OUTSIDE RECORDS SUMMARY | ~2020-06-19 | XMS | Encounter Summary ---
Demographics + + + | Address | [address] | | | [place] [address] | + + + | Home Phone | | + + + | Preferred Language | Unknown | + + + | Marital Status | | + + + | Taoist Affiliation | 1077 | + + + | Race | White | + + + | Ethnic Group | Not or | + + + Author + + + | Author | [facility] | | | and [place] | + + + | Organization | [facility] | | [...] Team Providers + +------+ + | Care Injection Molding Machine Operator Name | Role | Phone [...] + + | 12/08/ | Telephone | [facility] | Kristie De Los Santos ANP | Device Check | | 2020 | | [facility] [place] | [address] | | | | | [address] | [place], [place] | | | | | [place], [place] | [address] | | | | | [address] | | | | | | [phone] | | | +--------+ + + + [...] 2019. Device: Medtronic pacemaker [facility] Plan of Treatment +--------+ [...]
--- OUTSIDE RECORDS SUMMARY | ~2020-06-19 | XMS | Encounter Summary ---
Demographics + + + | Address | [address] | | | [place] [address] | + + + | Home Phone [...] Team Providers + +------+ + | Care Gold Plater Name | Role | Phone | [...] | | | | Loop Phys[facility] | [place], [place] | | | | | [place], [facility] floor | [address] | | | | | [place], [place] | [phone] | | | | | [address] | | | | | | [phone] | | | +--------+ + + + [...] [place], FLY - 06/30/2018 2:09 PM [facility] and was informed that the patient left their facility on 06/26/18 because he met h is PT needs. We were not notified. Pt is now under the care of [facility] P [phone] F [phone] and [facility] P [phone] F [phone]. I called and spoke to Joslyn at [facility]. She stated that the patient had his PICC dress ing changed today but that they have not drawn labs as they do not have orders yet. She also said that [facility] is providing the IV cefazolin. I called Diana and spoke to Jaquelin, who said that this patient is not on service with them. She recommended calling the [facility] office in [place]. I called and spoke to Rosalind, pharmacist at [place] office who confirmed that they have the p atient on their service. Abx/PMSO have been faxed to both [facility] and [facility]. Jaye [place] RN elephone Encounter - [...]
--- OUTSIDE RECORDS SUMMARY | ~2020-06-19 | XMS | Encounter Summary ---
Demographics + + + | Address | [address] | | | [place] [address] | + + + | Home Phone | | + + + | Preferred Language | Unknown | + + + | Marital Status | | + + + | Samaritan Affiliation | 1077 | + + + | Race | White | + + + | Ethnic Group | Not or | + + + Author + + + | Author | [facility] | | | and [place] | + + + | Organization | [facility] | | | [...] Team Providers + +------+ + | Care Mergers And Acquisitions Manager Name | Role | Phone | + +------+ + PCP | Unavailable | + +------+ + Encounter Details +--------+ + + + + | Date | Type | Department | Care Team | Description | +--------+ + + + + | 10/24/ | Hospital | [facility] | Conversion | Asystole ([facility]) | | 2016 - | Encounter | MEDICAL CENTER | Transaction, | | | | | CLINICAL DECISION | Provider Unknown | | | 10/25/ | | [address] [facility] | | | | 2016 | | [place] | | | | | | [address] | Robel Ricci Ken | | | | | [phone] | MD [address] | | | | | | [address] | | | | | | [place] [address] | | | | | | [phone] | | | | | | | [...] 1742 Date of Service: 10/25/16956 Status: Signed Press Clipper: Mikal Ha MD (Physician) [facility] Service: Cardiology Discharge Summary Date [...] Date of Service: 10/24/16 1631 Status: Signed Press Clipper: Ariana Johnson RN (Registered Nurse) Arm sling applied to left arm. docume nted in this encounter H&P Notes Mikal Ha - 10/24/2016 1:01 PM PST H&P by Mikal Ha MD at 10/24/16 1301 Author: Mikal Ha MD Service: Cardiology Author Type: Physician Filed: 10/24/16 1301 Date of Service: 10/24/16 1301 Status: Signed Press Clipper: Mikal Ha MD (Physician) [facility] Service: Cardiology Pre-Operative History & [...] this, however is planning to go to [place] after . He is on warf mustapha [...] mild distal inferior-apical ischemia, LVEF 53%. 14-Day Ingredient Handler, 10/10/2016: sinus rhythm, with frequent PVC's, no VT, however, 1st degree AVB, 2nd degree AVB (Type 1 and 2), 3.5sec asystole, bundle branch block. ECG, 09/12/2016: sinus rhythm, 78bpm, 1st degree AVB, old inferior IN, RBBB/LAFB. Essential hypertension Hypertension, controlled, continue current [...] this, however is planning to go to [place] after . He is on warfarin at [...] topically 2 (two) times daily as needed. [place]-3 Fatty Acids (FISH OIL) 1200 MG CAPS [...] (none) Author Type: Registered Nurse Filed: 10/25/16 1026 Date of Service: 10/25/16 1027 Status: Signed Press Clipper: Amy Broderick RN (Registered Nurse) Daily care [...] 10/24/162316 Date of Service: 10/24/162316 Status: Signed Press Clipper: Erick Ramos RN (Registered Nurse) No falls [...] 10/24/162315 Date of Service: 10/24/162315 Status: Signed Press Clipper: Erick Ramos RN (Registered Nurse) Daily care [...] Rad Conversion - 06/10/2019 6:48 PM PDT HISTORY:Device [...] | + + | Jonathan Hidalgo - 06/16/2019 3:00 PM PDT This Point [...] | | | Fingerstick | performed at [facility];[address] | | LAB | | | | [address];[place], [place] | | | | | | [address] | | | | + + + + + + + + | Specimen | + + | | + + + +---------+ + + | Performing | Address | City/State/Zipcode | Phone Number | | Organization | | | | + +---------+ + + | EXTERNAL LAB | | | | + +---------+ + + MRSA NAAT (10/24/2016 1:00 PM PST) + + | Specimen | + + | | + + + + + | Narrative | Performed At | + + + | SOURCE NARES(NOSE) | EXTERNAL LAB | | Testing performed at [facility];[address] [place] [address];[place] [address] MRSA PCR | | | NEGATIVE Testing performed at | | | [address];[place] [address] | | + + + + +---------+ [...] | | | | | performed at [facility] | | | | | | [facility] [facility];[place], [place] | | | | | | [address] | | | | + + + [...] EXTERNAL | | | | performed at [facility];[address] | K/uL | LAB | | | | [address];[place] | | | | | | [address] | | | | + + + + + + | Non- | 5.01Comment: Testing | 4.20 - 5.70 | EXTERNAL | | | Red Blood | performed at [facility];[address] | M/uL | LAB | | | Cells | [address];[place] | | | | | Counted | [address] | | | | + + + + + + | Hemoglobin | 15.0Comment: Testing | 13.2 - 17.0 | EXTERNAL | | | | performed at [facility];888 | g/dL | LAB | | | | [address];[place] | | | | | | [address] | | | | + + + + + + | Hematocrit, | 44.8Comment: Testing | 39.0 - 50.0 % | EXTERNAL | | | POC | performed at [facility];[address] | | LAB | | | | [address];[place] | | | | | | [address] | | | | + + + + + + | MCV | 89.6Comment: Testing | 80.0 - 100.0 fl | EXTERNAL | | | | performed at [facility];[address] | | LAB | | | | [address];[place] | | | | | | [address] | | | | + + + + + + | MCH | 29.9Comment: Testing | 27.0 - 34.0 pg | EXTERNAL | | | | performed at [facility];[address] | | LAB | | | | [address];[place] | | | | | | [address] | | | | + + + + + + | MCHC | 33.4Comment: Testing | 32.0 - 35.5 | EXTERNAL | | | | performed at [facility];888 | g/dL | LAB | | | | [address];[place] | | | | | | [address] | | | | + + + + + + | RDW-CV | 50.3Comment: Testing | 37 - 53 fl | EXTERNAL | | | | performed at [facility];[address] | | LAB | | | | [address];[place] | | | | | | [address] | | | | + + + + + + | Platelet | 111 (L)Comment: Testing | 150 - 400 K/uL | EXTERNAL | | | Count | performed at [facility];[address] | | LAB | | | Plasma | [address];[place] | | | | | | [address] | | | | + + + + + + | MPV | 9.1Comment: Testing | fl | EXTERNAL | | | | performed at [facility];[address] | | LAB | | | | [address];[place] | | | | | | [address] | | | | + + + + + + | Differentia | AUTOMATEDComment: | | EXTERNAL | | | l Type | Testing performed at | | LAB | | | | [facility];[address];[place] [address] | | | | + + + + + + | % Segmented | 63.78Comment: Testing | % | EXTERNAL | | | | performed at [facility];[address] | | LAB | | | Neutrophils | [address];[place] | | | | | | [address] | | | | + + + + + + | % | 24.36Comment: Testing | % | EXTERNAL | | | Lymphocytes | performed at [facility];[address] | | LAB | | | | [address];[place] | | | | | | [address] | | | | + + + + + + | % Monocytes | 8.57Comment: Testing | % | EXTERNAL | | | | performed at [facility];[address] | | LAB | | | | [address];[place] | | | | | | [address] | | | | + + + + + + | % | 2.68Comment: Testing | % | EXTERNAL | | | Eosinophils | performed at [facility];[address] | | LAB | | | | [address];[place] | | | | | | [address] | | | | + + + + + + | % Basophils | 0.61Comment: Testing | % | EXTERNAL | | | | performed at [facility];[address] | | LAB | | | | [address];[place] | | | | | | [address] | | | | + + + + + + | Absolute | 5.19Comment: Testing | 1.90 - 7.40 | EXTERNAL | | | Segmented | performed at [facility];[address] | K/uL | LAB | | | Neutrophils | [address];[place] | | | | | | [address] | | | | + + + + + + | Absolute | 1.98Comment: Testing | 1.00 - 3.90 | EXTERNAL | | | Lymphocytes | performed at [facility];[address] | K/uL | LAB | | | | [address];[place] | | | | | | [address] | | | | + + + + + + | Absolute | 0.70Comment: Testing | 0.00 - 0.80 | EXTERNAL | | | Monocytes | performed at [facility];[address] | K/uL | LAB | | | | [address];[place] | | | | | | [address] | | | | + + + + + + | Absolute | 0.22Comment: Testing | 0.00 - 0.50 | EXTERNAL | | | Eosinophils | performed at [facility];[address] | K/uL | LAB | | | | [address];[place] | | | | | | [address] | | | | + + + + + + | Absolute | 0.05Comment: Testing | 0.00 - 0.10 | EXTERNAL | | | Basophils | performed at [facility];[address] | K/uL | LAB | | | | [address];[place] | | | | | | [address] | | | | + + + [...] EXTERNAL | | | | performed at [facility];888 | mmol/L | LAB | | | | [address];[place] | | | | | | [address] | | | | + + + + + + | K | 3.9Comment: Testing | 3.5 - 4.9 | EXTERNAL | | | | performed at [facility];888 | mmol/L | LAB | | | | [address];[place] | | | | | | [address] | | | | + + + + + + | Cl | 103Comment: Testing | 99 - 109 mmol/L | EXTERNAL | | | | performed at [facility];[address] | | LAB | | | | [address];[place] | | | | | | [address] | | | | + + + + + + | CO2 | 32Comment: Testing | 23 - 32 mmol/L | EXTERNAL | | | | performed at [facility];[address] | | LAB | | | | [address];[place] | | | | | | [address] | | | | + + + + + + | Anion Gap | 9Comment: Testing | 5 - 20 mmol/L | EXTERNAL | | | | performed at [facility];[address] | | LAB | | | | [address];[place] | | | | | | [address] | | | | + + + + + + | Glucose, | 121 (H)Comment: Testing | 65 - 99 mg/dL | EXTERNAL | | | Fasting | performed at [facility];[address] | | LAB | | | | [address];[place] | | | | | | [address] | | | | + + + + + + | BUN | 24Comment: Testing | 8 - 25 mg/dL | EXTERNAL | | | | performed at [facility];[address] | | LAB | | | | [address];[place] | | | | | | [address] | | | | + + + + + + | Creatinine | 1.2Comment: Testing | 0.70 - 1.30 | EXTERNAL | | | | performed at [facility];888 | mg/dL | LAB | | | | [address];[place] | | | | | | [address] | | | | + + + + + + | BUN/Creatin | 20Comment: Testing | | EXTERNAL | | | ine Ratio | performed at [facility];[address] | | LAB | | | | [address];[place] | | | | | | [address] | | | | + + + + + + | Calcium | 8.7Comment: Testing | 8.5 - 10.5 | EXTERNAL | | | | performed at [facility];888 | mg/dL | LAB | | | | [address];[place] | | | | | | [address] | | | | + + + [...] | | | | | | at [facility];[address] [place] [address] | | | | | | [facility];[place] [address] | | | | + + + [...]
--- OUTSIDE RECORDS SUMMARY | ~2020-06-19 | XMS | Encounter Summary ---
Demographics + + + | Address | [address] | | | [place] [address] | + + + | Home Phone [...] Team Providers + +------+ + | Care Carpentry Teacher Name | Role | Phone | + +------+ + PCP | Unavailable | + +------+ + Encounter Details +--------+ + + + + | Date | Type | Department | Care Team | Description | +--------+ + + + + | 09/12/ | Hospital | [facility] | Olaf Nicole | | | 1997 - | Encounter | [facility] | MD [address] | | | | | CARDIAC TELEMETRY | [address] | | | 09/14/ | | [address] | [place] [address] | | | 1999 | | [place] | [phone] | | | | | [address] | | | | | | [phone] | | | +--------+ + + + [...]
--- OUTSIDE RECORDS SUMMARY | ~2020-06-19 | XMS | Encounter Summary ---
Demographics + + + | Address | [address] | | | [place] [address] | + + + | Home Phone [...] Providers + +------+ + | Care Service Center Supervisor Name | Role | Phone | + +------+ + PCP | Unavailable | + +------+ + Encounter Details +--------+ + + + + | Date | Type | Department | Care Team | Description | +--------+ + + + + | 09/16/ | Hospital | [facility] | Olaf Nicole | | | 2000 | Encounter | [facility] | MD [address] | | | | | GENERIC CONV DEPT | [address] | | | | | [address] | [place] [address] | | | | | [place] | [phone] | | | | | [address] | | | | | | [phone] | | | +--------+ + + + [...]
--- OUTSIDE RECORDS SUMMARY | ~2020-06-19 | XMS | Encounter Summary ---
Demographics + + + | Address | [address] | | | [place] [address] | + + + | Home Phone [...] Providers + +------+ + | Care Social Media Assistant Name | Role | Phone | + +------+ + PCP | Unavailable | + +------+ + Encounter Details +--------+ + + + + | Date | Type | Department | Care Team | Description | +--------+ + + + + | 05/02/ | [facility] | [facility] | Olaf [place] | | | 2000 - | Encounter | [facility] | MD Amy [address] | | | | | CARDIAC TRANSPLANT | [address] | | | 05/03/ | | [address] | [place] [address] | | | 2000 | | [place] | [phone] | | | | | [address] | | | | | | [phone] | | | +--------+ + + + [...]
--- OUTSIDE RECORDS SUMMARY | ~2020-06-19 | XMS | Encounter Summary ---
Demographics + + + | Address | [address] | | | [place] [address] | + + + | Home Phone [...] Team Providers + +------+ + | Care Regulatory Affairs Portfolio Leader Name | Role | Phone | + [...] ALEX HANDY | | | | | [facility] | [place] [address] | | | | | [address] | [phone] | | | | | [phone] | | | +--------+ + + + [...] TR Vmax: | | | 2.03 m/s Osd Clerk: CAROLYN Authenticated by: López Rothman | | | Report Date/Time: 08-07-2017 17:18:39 | | + + + + + | Procedure Note | + + | Jonathan Hidalgo Conversion - 06/17/2019 6:59 PM PDT Patient Name: [...] cmLVIDd: 5.53 cmLVPWd: 0.81 cmLVOT Area: 3.93 qi8NDPE Diam: 2.23 | | cm%FS: 24.16 %EF(Teich): 47.55 %ESV(Teich): 78.38 mlLVIDs: 4.19 cmSV(Teich): | | 71.06 mlRVIDd: 3.43 cmLVEF MOD A2C: 47.07 %SV MOD A2C: 71.24 mlLVEDV MOD A2C: | | 151.33 mlLVLd A2C: 8.47 cmLVEDV MOD A4C: 149.39 mlLVLd A4C: 8.40 cmLVESV MOD A2C: | | 80.08 mlLVLs A2C: 6.93 cmLAESV(A-L): 51.54 mlLAESV Index (A-L): 24.66 ml/m2LAAs | | A2C: 14.93 mg2YFIHP A-L A2C: 40.51 mlLALs A2C: 4.67 cmLAAs A4C: 18.74 dc0AZZPK | | A-L A4C: 64.72 mlLALs A4C: 4.60 cmRAAs: 18.61 we2JHKOE A-L: 72.61 mlRAESV MOD: | | 64.47 mlRALs: 4.04 cmTAPSE: 1.97 cmAV maxP.48 mmHgAV meanP.71 mmHgAV | | Vmax: 1.27 m/Nikita Vmean: 0.91 m/Nikita VTI: 27.28 cmAVA Vmax: 2.66 cm2AVA (VTI): | | 2.84 js0VSVE Vmax: 0.00 cm2/m2AVAI (VTI): 0.00 cm2/m2LVOT maxP.96 mmHgLVOT | | meanP.79 mmHgLVSI Dopp: 37.08 ml/m2LVSV Dopp: 77.51 mlLVOT Vmax: 0.86 | | m/sLVOT Vmean: 0.64 m/sLVOT VTI: 19.68 cmMV A Tramaine: 0.83 m/sMV DecT: 148.14 msMV | | E Traamine: 0.67 m/sMV E/A Ratio: 0.81MV PHT: 42.96 msMVA By PHT: 5.12 ug5Asqiju e': | | 0.05 m/sSeptal E/e': 11.72Lateral e': 0.10 m/sLateral E/e': 6.21RAP: 5 | | mmHgRVSP: 21.63 mmHgTR maxP.63 mmHgTR Vmax: 2.03 m/s Osd Clerk: | | DBSAuthenticated by: López [facility] Date/Time: 08-07-2017 17:18:39 IMPRESSION: | | 1. [...] |TR Vmax: 2.03 m/s | | | |Osd Clerk: DBS | |Authenticated by: López Rothman [...]
--- OUTSIDE RECORDS SUMMARY | ~2020-06-19 | XMS | Encounter Summary ---
Demographics + + + | Address | [address] | | | [place] [address] | + + + | Home Phone [...] [facility] [place] | | | and [place] | + [...] Team Providers + +------+ + | Care Desktop Publishing Associate Name | Role | Phone | + +------+ + PCP | Unavailable | + +------+ + Encounter Details +--------+ + + + + | Date | Type | Department | Care Team | Description | +--------+ + + + + | 09/03/ | Hospital | [facility] | Conversion | | | 2012 | Encounter | CENTER [facility] | Transaction, | | | | | CLINIC [address] | Provider Unknown | | | | | [place], [place] | | | | | | [address] | (Fax) | | | | | [phone] | | | +--------+ + + + [...] 09/03/131419 Date of Service: 09/03/131419 Status: Signed Scheduling Clerk: Manasa Andrade RN (Registered Nurse) Uses abimael Usman giordano in this encounter Plan of Treatment [...] EXTERNAL LAB | | Testing performed at [facility];[address];[place] [address] MRSA PCR | | | NEGATIVE Testing performed at | | | [facility];[address];[place] [address] | | + + + + +---------+ + + | Performing | Address | City/State/Zipcode | Phone Number | | Organization | | | | + +---------+ + + | EXTERNAL LAB | | | | + +---------+ + + documented in this encounter Visit Diagnoses Not on filedocumented in this encounter"
--- OUTSIDE RECORDS SUMMARY | ~2020-06-19 | XMS | Encounter Summary ---
Demographics + + + | Address | [address] | | | [place] [address] | + + + | Home Phone [...] Team Providers + +------+ + | Care Nipple Maker Name | Role | Phone | [...] 2017 | Encounter | at [facility] | [address] | | | | | [address] | [place], [place] | | | | | [facility] [address] | [address] | | | | | [place], [place] | [phone] | | | | | [address] | | | | | | [phone] | | | +--------+ + + + [...] | | 0 | | | | no.51-otct1c-iovzjam2i-dun-mxh | mouth once daily. | | | [...]
--- OUTSIDE RECORDS SUMMARY | ~2020-06-19 | XMS | Encounter Summary ---
Demographics + + + | Address | [address] | | | [place] [address] | + + + | Home Phone [...] Team Providers + +------+ + | Care Radio Engineer Name | Role | Phone | [...] | | | | | | PLE TX EGD | | | | | [...] + + | 02/10/ | Surgery | [facility] | Willow Colin MD | EGD WITH DILITATION | | 2019 | | MED CTR [facility] OP | [address] | | | | | [address] | [address] [place], | | | | | [place] | [place] [address] | | | | | [address] | [phone] | | | | | [phone] | | | +--------+---------+ + + + [...] You can't be awakened Date Last Reviewed: 08/13/201619992691-9918 [employer]. [address] [place] [address]. All [facility] ts reserved. This information is not [...] you take. This includes prescription medicines, o fng-mqy-xiijmov medicines, herbs, vitamins, and other supplements. Be [...] icine to relax you. The procedure takes busmn82nzjumrj. It does not cause trouble breath ing. [...] Black, tarry, or bloodystools Date Last Reviewed: 04/26/201619990522-6282 [employer]. [address] [place] [address], [place] [address]. All righ ts reserved. This information is [...] prescription medicines Herbs, vitamins, and other supplements Eoii-jdn-nuyktgq medicines such as aspirin or ibuprofen Street [...] heart or lung disease Date Last Reviewed: 05/27/201719993198-2816 [employer]. [address] [place] [address]. All righ ts reserved. This information is [...] signed by: Willow Colin MD, 02/10/2019 13:00 [facility] signed by Willow Colin MD at [...] + + | Instrument | | | [facility] | | | ID | | | [facility] | | | | | | CORE [...] + + | [address] | [address] [place] | [place] [address] | [phone] | | [facility] | | | [...] [address] | [place] | [phone] | | [facility] | | [address] | | | - LABORATORY | | | | + + + + + Surgical Pathology Exam (02/10/2019 12:00 AM PDT) + + | Specimen | + + | | + + + + + | Narrative | Performed At | + + + | SPECIMEN(S): A GASTRIC BIOPSY SPECIMEN SOURCE: [facility] | | BIOPSY CLINICAL HISTORY: R13.10 [...] technical and professional components were performed by [employer] | | | [employer], [address] [place] [address] | | | (Senior Java Data Architect: Don Morrell D.O.; IA#: [id number]). | | | Diagnostician: Gely Cerna MD Pathologist Electronically | | | Signed 02/12/2019 | | + + + + +---------+ + + | Performing | Address | City/State/[facility] | Phone Number | | Organization [...]
--- OUTSIDE RECORDS SUMMARY | ~2020-06-19 | XMS | Encounter Summary ---
Demographics + + + | Address | [address] | | | [place] [address] | + + + | Home Phone [...] Team Providers + +------+ + | Care Refuse Collector Name | Role | Phone | + [...] [address] | | | | | [address] | [address] | | | | | Loop Physician's | [place], [place] | | | | | [place], [facility] floor | [address] | | | | | [place], [place] | [phone] | | | | | [address] | | | | | | [phone] | | | +--------+ + + + [...]
--- OUTSIDE RECORDS SUMMARY | ~2020-06-19 | XMS | Encounter Summary ---
Demographics + + + | Address | [address] | | | [place] [address] | + + + | Home Phone [...] Team Providers + +------+ + | Care Online Marketing Strategist Name | Role | Phone | [...] | | | | | [facility] | [address] | | | | | Hospital Admitting | | | | | | Desk Located on the | [address] | | | | | 9th floor | [phone] | | | | | [facility] [place] | | | | | | [address] | Princess Ward MD | | | | | | [address] | | | | | | [place], | | | | | | [place] [address] | | | | | | [phone] | | | | | | | [...] Line | Standard; Left; 20g; 06/12/18; | HOUSING DIRECTOR | | | | 1617; Per order | | | +--------+ + + + | Periph | 06/12/18; 1323; Right; Wrist; 20 | 06/12/18 1323 by | 06/14/181999 by | | eral | g; 06/14/18; 1999 | Robel Page, | Gabriel Zapata RN | | IV | | HOUSING DIRECTOR | | +--------+ + + + | [...] be different from the original. Duane Mas [id number] Allergies Allergen Reactions Sulfa (Sulfonamide Antibiotics) Rash [...] e different from the original. Duane Crabtreede [id number] Allergies Allergen Reactions Sulfa (Sulfonamide Antibiotics) Rash [...] 06/11/2018 No results found for: RATE, ATRIALRATE, TN, QRS, QT, QTC, PAXIS, RAXIS, TAXIS, EKGDX [...]
--- OUTSIDE RECORDS SUMMARY | ~2020-06-19 | XMS | Encounter Summary ---
Demographics + + + | Address | [address] | | | [place] [address] | + + + | Home Phone [...] Providers + +------+ + | Care Switch Tender Name | Role | Phone | [...] | 2018 | | PADMINI Hernandez | [address] | POSSIBLE COMPONENT | | | | Rd [facility] Main | [facility] [place] | EXCHANGE, POSSIBLE | | | | Hospital Admitting | [address] | REVISION | | | | Desk Located on the | [phone] | | | | | 9th floor | | | | | | [place], [place] | | | | | | [address] | | | +--------+---------+ + + + [...] | | 0 | | | | [id number] | mouth once daily. | | | [...] who advised PT to come to [facility] ED. Advised Dr. Yen to call [...]
--- OUTSIDE RECORDS SUMMARY | ~2020-06-19 | XMS | Encounter Summary ---
Demographics + + + | Address | [address] | | | [place] [address] | + + + | Home Phone [...] Team Providers + +------+ + | Care Vision Specialist Name | Role | Phone | + +------+ + | Erin Forrester MD | PCP | | + +------+ + Encounter Details +--------+ + + + + | Date | Type | Department | Care Team | Description | +--------+ + + + + | 09/12/ | Orders Only | [facility] | Robel Ricci | | | 2015 | | CARDIOLOGY AARON | MD [address] | | | | | [address] | [address] | | | | | [address] | [place] [address] | | | | | [address] | [phone] | | | | | [phone] | | | +--------+ + + + [...] | | | | | by [facility] Read Only, | | | | | | [facility] ([id number]), | | | | | | restaurant expeditor Demetri Norton | | | | | | ([id number]) on 10/08/2016 | | | | | | 8:28:04 AM | | | | + + + + + + + + | Specimen | + + | | + + + + + | Narrative | Performed At | + + + | Historically converted procedure from [facility] | EXTERNAL LAB | + + + + +---------+ + + | Performing | Address | City/State/Zipcode | Phone Number | | Organization | | | | + +---------+ + + | EXTERNAL LAB | | | | + +---------+ + + documented in this encounter Visit Diagnoses Not on filedocumented in this encounter"
--- OUTSIDE RECORDS SUMMARY | ~2020-06-19 | XMS | Encounter Summary ---
Demographics + + + | Address | [address] | | | [place] [address] | + + + | Home Phone [...] Team Providers + +------+ + | Care Line Out Man Name | Role | Phone | [...] | | | | | [address] | [address] | | | | | [address] | [place] [address] | | | | | [address] | [phone] | | | | | [phone] | | | +--------+ + + + [...] EVALUATION Duane Mas 78 y.o. male 1940 [id number] Procedure(s): EGD DIL (N/A Mouth) Medical,anesthesia, drug, allergy histories reviewed, NPO status verified. ECG reviewed. Labs reviewed. (+) perioperative beta-afau/statin given/taken. . Review of Systems / Med History Anesthesia History EGD in 2017 - did well with TIVA. 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 (+) congestive heart failure. . Pulmonary [...]
--- OUTSIDE RECORDS SUMMARY | ~2020-06-19 | XMS | Encounter Summary ---
Demographics + + + | Address | [address] | | | [place] [address] | + + + | Home Phone [...] + + + | Author | [facility] | | | and [place] | + + + | Organization | [facility] | | | [...] Team Providers + +------+ + | Care Tactical Air Control Party Name | Role | Phone | + [...] + + | 03/01/ | Telephone | [facility] | Kristie De Los Santos ANP | Device Check | | 2020 | | CARDIOLOGY HARDIN | [address] | | | | | [address] | [place], [place] | | | | | [place], [place] | [address] | | | | | [address] | | | | | | [phone] | | | +--------+ + + + [...]
--- OUTSIDE RECORDS SUMMARY | ~2020-06-19 | XMS | Encounter Summary ---
Demographics + + + | Address | [address] | | | [place] [address] | + + + | Home Phone [...] Providers + +------+ + | Care Clinical Account Specialist Name | Role | Phone | [...] [id number] | | | | | | [facility] | | | | | | and Healing, | | | | | | Building [address], [address]th | | | | | | Floor [place], [place] | | | | | | [address] | | | | | | [phone] | | | +--------+ + + + [...] punch | | | | | | [id number]-qye skin, | | | | | | [...] [facility] | [address] | [place] | | | DERMATOPATHOLOGY | [address] | | | + + + + + | [facility] | [address] | [place] [address] | | | DERMATOPATHOLOGY | [address] | | | + + + + + documented in this encounter Visit Diagnoses + + | Diagnosis | + + | Other specified dermatitis | + + documented in this encounter
--- OUTSIDE RECORDS SUMMARY | ~2020-06-19 | XMS | Encounter Summary ---
Demographics + + + | Address | [address] | | | [place] [address] | + + + | Home Phone [...] Providers + +------+ + | Care Direct Marketing Analyst Name | Role | Phone | [...] | | | | [facility] | [place], [place] | | | | | Pavilion, 3rd floor | [address] | | | | | [place], [place] | [phone] | | | | | [address] | | | | | | [phone] | | | +--------+ + + + [...] Celia Hawthorne RN - 07/01/[address] [facility] check in - Transitional Care Management Note ASSESSMENT Spoke with Beth Mas, of patient who is , at [phone]. Beth stated that infusi ons of cefazolin [...] without provider involvement . CELIA HAWTHORNE RN [facility] INFECTIOUS DISEASE PPV INFECTIOUS DISEASES AT [facility] 3RD FLOOR [address] [facility] [place] [address] documented in this enc ounter Plan of Treatment Not on filedocumented as of this encounter Visit Diagnoses Not on filedocumented in this encounter"
--- OUTSIDE RECORDS SUMMARY | ~2020-06-19 | XMS | Encounter Summary ---
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 | 2 diabetes mellitus | | | | [address] [place], [place] | [place] [address] | without | | | | [address] | | complications (HCC); | | | | [phone] | | Chronic kidney | | | [...]
[~2020-06-19 18:28] MED LIST changes: +CIPROFLOXACIN250 MG PO; +DULCOLAX5 MG PO; +GLIPIZIDE10 MG PO; +KEFLEX500 MG PO; +LUTEIN 15 MG S1 EACH PO; +MEDROL2 MG PO; +MEDROL4 M1 PO; +TORSEMIDE20 MG PO; -VITAMIN D1000 UNIT PO; +VITAMIN D3125 MC2 PO
== END 2020-06-19 22:35 | disposition home or self-care (01) ==
LOC: ED 18:28
DX: R50.9 Fever, unspecified (principal); I11.0 Hypertensive heart disease with heart failure; I50.9 Heart failure, unspecified; I25.2 Old myocardial infarction; E11.9 Type 2 diabetes mellitus without complications; Z87.891 Personal history of nicotine dependence; Z88.2 Allergy status to sulfonamides; Z79.899 Other long term (current) drug therapy
CPT/HCPCS: 71045; 80053; 81001; 83605; 85025; 96360; 99284-25; J7030

== ENCOUNTER 2020-06-27 20:49 | Emergency (ER) | payer MEDICARE, OTHER ==
[~2020-06-27] VITALS: Ht 170.2 cm; Wt 81.8 kg
--- OUTSIDE RECORDS SUMMARY | ~2020-06-27 | XMS | Encounter Summary ---
Demographics + + + | Address | [address] | | | [place] [address] | + + + | Home Phone | | + + + | Preferred Language | Unknown | + + + | Marital Status | | + + + | [employer] Affiliation | 1077 | + + + | Race | White | + + + | Ethnic Group | Not or | + + + Author + + + | Author | [facility] | | | and [place] | + + + | Organization | [facility] | | | [...] Team Providers + +------+ + | Care Boning Room Worker Name | Role | Phone | + +------+ + PCP | Unavailable | + +------+ + Encounter Details +--------+ + + + + | Date | Type | Department | Care Team | Description | +--------+ + + + + | 10/24/ | Hospital | [facility] | Conversion | [facility] ([facility]) | | 2016 - | Encounter | MEDICAL CENTER | Transaction, | | | | | CLINICAL DECISION | Provider Unknown | | | 10/25/ | | [address] [facility] | | | | 2016 | | [place] | | | | | | [address] | Robel Ricci Ken | | | | | [phone] | MD [address] | | | | | | [address] | | | | | | [place] [address] | | | | | | [phone] | | | | | | | | +--------+ + + + + Social History + +-------+ +--------+------+ | Tobacco Use | Types | Packs/Day | Years | Date | | | | | Used | | + +-------+ +--------+------+ | Never Assessed | | | | | + +-------+ +--------+------+ + + + | Sex Assigned at | Date Recorded | | | | + + + | Not on file | | + + + documented as of this encounter Last Filed Vital Signs + + + + + | Vital Sign | Reading | Time Taken | Comments | + + + + + | Blood Pressure | 121/62 | 10/25/2016 7:40 AM | | | | | PST | | + + + + + | Pulse | 73 | 10/25/2016 7:40 AM | | | | | PST | | + + + + + | Temperature | 36.3 C (97.4 F) | 10/25/2016 7:40 AM | | | | | PST | | + + + + + | Respiratory Rate | 18 | 10/25/2016 7:40 AM | | | | | PST | | + + + + + | Oxygen Saturation | - | - | | + + + + + | Inhaled Oxygen | - | - | | | Concentration | | | | + + + + + | Weight | 99.8 kg (220 lb) | 10/25/2016 7:40 AM | | | | | PST | | + + + + + | Height | 172.7 cm (5' 8") | 10/25/2016 7:40 AM | | | | | PST | | + + + + + | Body Mass Index | 33.45 | 10/25/2016 7:40 AM | | | | | PST | | + + + + + documented in this encounter Discharge Summaries Mikal Ha - 10/25/2016 9:57 AM PST Discharge Summaries by Mikal Ha MD at 10/25/16956 Author: Mikal Ha MD Service: Cardiology Author Type: Physician Filed: 10/25/16 1742 Date of Service: 10/25/16956 Status: Signed Marina Porter: Mikal Ha MD (Physician) [facility] Service: Cardiology Discharge Summary Date of Admission: 10/24/2016 Date of Discharge: 10/25/2016 Discharge Physician: Mikal Ha MD PROCEDURES: Insertion of dual chamber permanent MRI compatible pacemaker, Medtronic unit. HOSPITAL COURSE: Mr. Mas is a 76 years old gentleman who was referred by Dr. Ricci for implantation of dual -chamber pacemaker for symptomatic bradycardia with dizziness and lightheadedness. Monitor s howed the a few episodes of possible more than 3.5 seconds. He had successful implantation of dual-chamber MRI compatible Medtronic pacemaker. He was observed overnight without complications. Next morning chest x-ray showed good position of the pacemaker without complications. Inter rogation of the pacemaker showed satisfactory results. He was discharged in stable condition. DISCHARGE EXAM Vital Signs: BP 121/62 mmHg | Pulse 73 | Temp(Src) 97.4 F (36.3 C) (Oral) | Resp 18 | Ht 1.727 m (5' 8") | Wt 99.791 kg (220 lb) | BMI 33.46 kg/m2 | SpO2 94% HEENT: No xanthelasmas. Extraocular movements were intact. No jaundice. NECK: no JVD, lymphadenopathy. Trachea is at midline. Thyroid is not palpable. CARDIAC: There is normal S1 and S2. No added sounds, murmurs, gallop, or rub. CHEST: Normal bilateral symmetrical chest excursion. Good bilateral air entry with bilatera l basilar crackles, improved with cough. ABDOMEN: Soft and lax. No tenderness. No palpable organs. Active bowel sounds. EXTREMITIES: No lower extremities edema. NEURO: Alert and oriented times three with no focal deficit. Cranial nerves are grossly no rmal. SKIN: No bruises or rash. DATA: Recent Labs Lab 10/24/16 1300 NA 140 K 3.9 CO2 32 BUN 24 CREATININE 1.2 No results for input(s): CKTOTAL, CKMB, CKMBINDEX, TROPONINI in the last 168 hours. Recent Labs Lab 10/24/16 1300 WBC 8.14 HGB 15.0 HCT 44.8 MCV 89.6 PLT 111* PLAN: Follow-up in the clinic in 2 weeks for wound check. Establish care with the pacemaker clinic. DISCHARGE MEDICATIONS: Medication List CONTINUE taking these medications acetaminophen-codeine 300-15 MG per tablet Refills: 0 Commonly known as: TYLENOL #2 allopurinol 300 MG tablet Refills: 0 Commonly known as: ZYLOPRIM carvedilol 3.125 MG tablet Refills: 0 Commonly known as: COREG cholecalciferol 1000 UNITS tablet Refills: 0 Commonly known as: VITAMIN D-3 colchicine 0.6 MG tablet Refills: 0 EYE VITAMINS Caps Refills: 0 Fish Oil 1200 MG Caps Refills: 0 folic acid 400 MCG tablet Refills: 0 Commonly known as: FOLVITE furosemide 20 MG tablet Refills: 0 Commonly known as: LASIX glimepiride 4 MG tablet Refills: 0 Commonly known as: AMARYL isosorbide mononitrate 60 MG 24 hr tablet QTY: 90 tablet Refills: 3 Commonly known as: IMDUR Take 1 tablet by mouth daily. losartan 50 MG tablet QTY: 90 tablet Refills: 3 Commonly known as: COZAAR Take 1 tablet by mouth daily. metFORMIN 500 MG tablet Refills: 0 Commonly known as: GLUCOPHAGE metolazone 2.5 MG tablet QTY: 90 tablet Refills: 3 Commonly known as: ZAROXOLYN Take 1 tablet by mouth daily. nystatin-triamcinolone ointment Refills: 0 Commonly known as: MYCOLOG potassium chloride 10 MEQ tablet Refills: 0 Commonly known as: K-DUR simvastatin 40 MG tablet Refills: 0 Commonly known as: ZOCOR warfarin 2.5 MG tablet Refills: 0 Commonly known as: COUMADIN Disposition: Home Condition: Stable Code Status: Full Code Discharge took 20 minutes, to include final examination, discussion of admission, and prepa ration of prescriptions, instructions for on-going care, follow-up and documentation of disc harge summary. Mikal Ha MD 10/25/2016 documented in this encount er Progress Notes Conversion Transaction, Provider Unknown - 10/24/2016 4:31 PM PSTFormatting of this note m ight be different from the original. Progress Notes by Ariana Johnson RN at 10/24/16 1631 Author: Ariana Johnson RN Service: Cardiac, Thoracic, and Vascular Surgery Author Typ e: Registered Nurse Filed: 10/24/16 1632 Date of Service: 10/24/16 1631 Status: Signed Marina Porter: Ariana Johnson RN (Registered Nurse) Arm sling applied to left arm. docume nted in this encounter H&P Notes Mikal Ha - 10/24/2016 1:01 PM PST H&P by Mikal Ha MD at 10/24/16 1301 Author: Mikal Ha MD Service: Cardiology Author Type: Physician Filed: 10/24/16 1301 Date of Service: 10/24/16 1301 Status: Signed Marina Porter: Mikal Ha MD (Physician) [facility] Service: Cardiology Pre-Operative History & Physical Interval Update There have been no significant clinical changes since the completion of the above H&P. Moderate Sedation Presedation Assessment completed. ASA Classification: ASA 2: Patient with a mild systemic disease Mikal Ha MD 10/24/2016 *CORE MEASURES REMINDER: If the patient has a known or suspected infection prior to surger y, please add diagnosis to the problem list (consider: Infection 136.9). Duane Martina [address] 1940 Date of Service: 10/16/2016 Chief Complaint: Chief Complaint Patient presents with Results Assessment/Plan ASSESSMENT/PLAN: CAD (coronary artery disease) 2V-CAD, Hx PCI/stent, Hx CABG, LVEF 50-60%. 76yo WM, reporting 2 episodes o f lightheadedness, associated with a slow heart rate, in the 30s. Both times, he was sitti ng at his computer, felt lightheaded, used his pulse oximeter to assess his pulse, both time s reading in the 30's. These episodes are brief, no syncope. He remains modestly active, a dmits chronic stable angina with shortness of breath, but there is no significant orthopnea or PND, no chest discomfort at rest. His angina appears to be stable. Denies any palpita tions. Denies any new visual disturbances, dysarthria, dysphasia, lateralizing signs or sy mptoms. No significant bleeding or bruising. ECG shows the trifascicular block, not a ne w finding. Cardiac event monitor reveal 2 episodes of pauses, 3.5sec. Pacemaker recommen ded, he is open to this, however is planning to go to [place] after . He is on warf mustapha at this time, and also on carvedilol. We discussed a possibility of delaying his emelyn el vs having a pacemaker and plantation delayed. He has not had a syncopal episode, electe d to suspend his carvedilol for now, and allow him to travel. Up on his return, will suspe nd his warfarin and schedule him for pacemaker implantation, after which the carvedilol can be resumed. If he has any worsening of his symptoms, he is to seek medical attention immed iately. Hx CAB, CABG*2 (SVG to LAD, SVG to PDA). Hx PCI/stent: stents*3 prior to CABG (specifics unknown). Hx Pacemaker/ICD: no Last Cath, 10/31/2015: left main OK, 70% prox-LAD, 90% osteal D1, 85% osteal D2, 40% ramus, L Cx/OM's OK, prox-RCA occ (previous stent), extensive L->R collaterals. SVG to LAD patent, SVG to RCA occluded. LVEF 45%, infero-basal akinesis. Last Echo, 01/23/2012: LV enlarged, LVEF 45-50%, mild LAE, trace MR, trace TR. Last stress test, 10/09/2015: Lexiscan, mild distal inferior-apical ischemia, LVEF 53%. [employer], 10/10/2016: sinus rhythm, with frequent PVC's, no VT, however, 1st degree AVB, 2nd degree AVB (Type 1 and 2), 3.5sec asystole, bundle branch block. ECG, 09/12/2016: sinus rhythm, 78bpm, 1st degree AVB, old inferior ID, RBBB/LAFB. Essential hypertension Hypertension, controlled, continue current meds, at current dose (furosemide, losartan, met olazone). Hyperlipidemia Hyperlipidemia, at goal, continue current meds at current dose (simvastatin). Labs review ed with patient. Lab, 09/23/2016: T Chol: 105, LDL-Chol: 36, HDL-Chol: 40, Tri Liver enzymes NML, K: 4.1, BUN/Cr: 2 30/1.4 (GFR 50), glu: 126 TSH: 2.24, HgbA1c: 6.5, WBC: 7.3, H/ H: 14.9/45.4, plt: 114, ESR: 18 DVT (deep venous thrombosis) (HCC) Hx DVT, right leg, chronic venous insufficiency. On warfarin, managed by PCP. Arterial US, lower Ext, 10/09/2015: TDS, calcification of trifurcation vessels, mild-modera te disease in upper vessels. Type 2 diabetes mellitus without complication (HCC) DM2, managed by PCP. F/U with TITA CHRISTOPHER, RTC Return in about 1 month (around 11/16/2016), or if symptoms worsen or fail to improve.. SUBJECTIVE: 76yo WM, reporting 2 episodes of lightheadedness, associated with a slow heart rate, in the 30s. Both times, he was sitting at his computer, felt lightheaded, used his pulse oximete r to assess his pulse, both times reading in the 30's. These episodes are brief, no syncop e. He remains modestly active, admits chronic stable angina with shortness of breath, but th ere is no significant orthopnea or PND, no chest discomfort at rest. His angina appears to be stable. Denies any palpitations. Denies any new visual disturbances, dysarthria, dys phasia, lateralizing signs or symptoms. No significant bleeding or bruising. ECG shows t he trifascicular block, not a new finding. Cardiac event monitor reveal 2 episodes of paus es, 3.5sec. Pacemaker recommended, he is open to this, however is planning to go to [place] after . He is on warfarin at this time, and also on carvedilol. We discussed a possibility of delaying his travel vs having a pacemaker and plantation delayed. He has no t had a syncopal episode, elected to suspend his carvedilol for now, and allow him to travel . Up on his return, will suspend his warfarin and schedule him for pacemaker implantation, after which the carvedilol can be resumed. If he has any worsening of his symptoms, he is to seek medical attention immediately. Allergies Allergen Reactions Sulfa Antibiotics Hives Encounter Medications Outpatient Encounter Prescriptions as of 10/16/2016 Medication Sig Dispense Refill acetaminophen-codeine (TYLENOL #2) 300-15 MG per tablet Take 1 tablet by mouth ever y 4 (four) hours as needed. allopurinol (ZYLOPRIM) 300 MG tablet Take 300 mg by mouth daily. betamethasone dipropionate (DIPROLENE) 0.05 % cream Apply topically 2 (two) times daily as needed. cholecalciferol (VITAMIN D-3) 1000 UNITS tablet Take 1,000 Units by mouth daily. colchicine 0.6 MG tablet Take 0.6 mg by mouth daily as needed. folic acid (FOLVITE) 400 MCG tablet Take 400 mcg by mouth daily. furosemide (LASIX) 20 MG tablet Take 20 mg by mouth daily. glimepiride (AMARYL) 4 MG tablet Take 4 mg by mouth every morning before breakfast. isosorbide mononitrate (IMDUR) 60 MG 24 hr tablet Take 1 tablet by mouth daily. 9 0 tablet 3 losartan (COZAAR) 50 MG tablet Take 1 tablet by mouth daily. 90 tablet 3 metFORMIN (GLUCOPHAGE) 500 MG tablet Take 500 mg by mouth Before eavning meal. metolazone (ZAROXOLYN) 2.5 MG tablet Take 1 tablet by mouth daily. 90 tablet 3 nystatin-triamcinolone (MYCOLOG) ointment Apply topically 2 (two) times daily as needed. [place]-3 Fatty Acids (FISH OIL) 1200 MG CAPS Take 1,200 mg by mouth 2 (two) times da afshan. potassium chloride (K-DUR) 10 MEQ tablet Take 10 mEq by mouth 2 (two) times daily. simvastatin (ZOCOR) 40 MG tablet Take 40 mg by mouth nightly. warfarin (COUMADIN) 2.5 MG tablet Take 2.5 mg by mouth daily. Dr. Christopher regulates PT s [DISCONTINUED] carvedilol (COREG) 3.125 MG tablet Take 3.125 mg by mouth 2 (two) ti mes daily with meals. No facility-administered encounter medications on file as of 10/16/2016. Social History Substance Use Topics Smoking status: Former Smoker -- 40 years Types: Pipe Quit date: 10/27/1997 Smokeless tobacco: Never Used Alcohol Use: 0.0 oz/week 0 Standard drinks or equivalent per week Comment: rarely Review of Systems Constitutional: Negative for fever. HENT: Negative for nosebleeds. Eyes: Negative for blurred vision and double vision. Respiratory: Positive for shortness of breath. Negative for cough, hemoptysis, sputum produ ction and wheezing. Cardiovascular: Positive for claudication. Negative for chest pain. Gastrointestinal: Negative for heartburn, nausea, vomiting, abdominal pain, diarrhea, const ipation, blood in stool and melena. Genitourinary: Negative for dysuria and hematuria. Musculoskeletal: Negative for myalgias. Skin: Negative for rash. Neurological: Negative for dizziness, tingling, sensory change, speech change, focal weakne ss, seizures, loss of consciousness, weakness and headaches. Endo/Heme/Allergies: Does not bruise/bleed easily. Psychiatric/Behavioral: Negative for depression. The following portions of the patient's history were reviewed and updated as appropriate: a llergies, current medications, past family history, past medical history, past social histor y, past surgical history and problem list. OBJECTIVE: Vitals Filed Vitals: 10/16/16 1410 BP: 126/50 Pulse: 82 Resp: 18 Height: 1.702 m (5' 7") Weight: 102.694 kg (226 lb 6.4 oz) SpO2: 95% Physical Exam Constitutional: He is oriented to person, place, and time and well-developed, well-nourishe d, and in no distress. Eyes: EOM are normal. Neck: No JVD present. Cardiovascular: Normal rate, regular rhythm, S1 normal, S2 normal and intact distal pulses. No extrasystoles are present. PMI is not displaced. Exam reveals no S3, no S4 and no friction rub. No murmur heard. No systolic murmur is present No diastolic murmur is present Pulses: Carotid pulses are 2+ on the right side, and 2+ on the left side. Radial pulses are 2+ on the right side, and 2+ on the left side. Femoral pulses are 2+ on the right side, and 2+ on the left side. Dorsalis pedis pulses are 1+ on the right side, and 1+ on the left side. Posterior tibial pulses are 1+ on the right side, and 1+ on the left side. Pulmonary/Chest: No respiratory distress. He has no wheezes. He has no rales. He exhibits n o tenderness. Sternotomy healed, no crepitus. Abdominal: Bowel sounds are normal. He exhibits no distension and no mass. There is no tend erness. Musculoskeletal: He exhibits edema (1+ PTE, eugene, with stasis changes. Left leg donor. ). 1 plus edema with stasis changes both legs Neurological: He is alert and oriented to person, place, and time. Skin: Skin is warm and dry. No bruising, no ecchymosis and no rash noted. No cyanosis. Nail s show no clubbing. This note prepared with voice recognition software, if any questions concerning spelling an d/or grammar, please call. Negro Winter documented in this encount er Miscellaneous Notes Plan of Care - Conversion Transaction, Provider Unknown - 10/25/2016 10:27 AM PST Plan of Care by Amy Broderick RN at 10/25/16 1027 Author: Amy Broderick RN Service: (none) Author Type: Registered Nurse Filed: 10/25/16 1020 Date of Service: 10/25/16 1027 Status: Signed Marina Porter: Amy Broderick RN (Registered Nurse) Daily care needs are met Completed Patient's discharge needs are met Completed Patient will remain free of falls: Low Risk ([place] 25-50) Completed Patient's pain/discomfort is manageable Completed Demonstrates ability to cope with hospitalization/illness Completed Collaborate with patient/family/caregiver to identify patient specific goals for this hospi talization Completed No falls during hospitalization Completed Patient will be injury free during hospitalization Completed Charlotte Broderick RN 10/25/2016 10:28 AM lan o f Care - Conversion Transaction, Provider Unknown - 10/24/2016 11:17 PM PSTFormatting of thi s note might be different from the original. Plan of Care by Erick Ramos RN at 10/24/162316 Author: Erick Ramos RN Service: (none) Author Type: Registered Nurse Filed: 10/24/162316 Date of Service: 10/24/162316 Status: Signed Marina Porter: Erick Ramos RN (Registered Nurse) No falls during hospitalization Progressing Patient remain free of falls: Standard Risk ([place] 0-24) Progressing Patient will remain free of falls: Low Risk ([place] 25-50) Progressing Patient will remain free from falls: High Risk ([place] 51+) Progressing lan o f Care - Conversion Transaction, Provider Unknown - 10/24/2016 11:16 PM PSTFormatting of thi s note might be different from the original. Plan of Care by Erick Ramos RN at 10/24/162315 Author: Erick Ramos RN Service: (none) Author Type: Registered Nurse Filed: 10/24/162315 Date of Service: 10/24/162315 Status: Signed Marina Porter: Erick aRmos RN (Registered Nurse) Daily care needs are met Progressing Patient's discharge needs are met Progressing Patient's pain/discomfort is manageable Progressing Demonstrates ability to cope with hospitalization/illness Progressing Collaborate with patient/family/caregiver to identify patient specific goals for this hospi talization Progressing Patient will be injury free during hospitalization Progressing docume nted in this encounter Plan of Treatment +--------+ + [...] | + +--------+ + + + | XR CHEST 2 VIEWS | Routin | 10/25/2016 | | Results for this | | | e | 6:45 AM | | procedure are in the | | | | PST | | results section. | + +--------+ + + + | CV VASCULAR | Routin | 10/24/2016 | | Results for this | | PROCEDURE | e | 4:36 PM | | procedure are in the | | | | PST | | results section. | + +--------+ + + + | POC GLUCOSE | Routin | 10/24/2016 | | Results for this | | | e | 1:01 PM | | procedure are in the | | | | PST | | results section. | + +--------+ + + + | EXTERNAL LAB: CBC | Routin | 10/24/2016 | | Results for this | | | e | 1:00 PM | | procedure are in the | | | | PST | | results section. | + +--------+ + + + | MRSA NAAT | Timed | 10/24/2016 | | Results for this | | | | 1:00 PM | | procedure are in the | | | | PST | | results section. | + +--------+ + + + | PROTIME INR | Routin | 10/24/2016 | | Results for this | | | e | 1:00 PM | | procedure are in the | | | | PST | | results section. | + +--------+ + + + | BASIC METABOLIC | Routin | 10/24/2016 | | Results for this | | PANEL | e | 1:00 PM | | procedure are in the | | | | PST | | results section. | + +--------+ + + + documented in this encounter Results XR Chest 2 Vws (10/25/2016 6:45 AM PST) + + | Specimen | + + | | + + + + + | Impressions | Performed At | + + + | 1. Sequential pacer placement over the left chest wall with leads | | | to the right atrium and ventricle in appropriate position. 2. No | | | pneumothorax. 3. Probable subpleural fat bilateral mid to lower | | | lung zones laterally. 4. Fusion of most of the thoracic spine. | | | Correlate to exclude ankylosing spondylitis. | | + + + + + + | Narrative | Performed At | + + + | HISTORY: Device placement. Question pneumothorax. COMPARISON: | | | None. TECHNIQUE: PA and lateral films of the chest. FINDINGS: | | | Median sternotomy. Heart size is normal. Pleural thickening along | | | the lateral mid to lower lung zones bilaterally probably due to | | | subpleural fat. No pneumothorax. Heart size is normal. Minimal strandy | | | change on the lateral film posteriorly probably due to mild | | | atelectasis in the medial lung bases. There is fusion of most of the | | | thoracic spine. Correlate for ankylosing spondylitis. | | + + + + + | Procedure Note | + + | Jonathan Hidalgo Conversion - 06/10/2019 6:48 PM PDT HISTORY:Device placement. Question | | pneumothorax. COMPARISON:None. TECHNIQUE:PA and lateral films of the chest. | | FINDINGS:Median sternotomy. Heart size is normal. Pleural thickening along the lateral | | mid to lower lung zones bilaterally probably due to subpleural fat. No pneumothorax. | | Heart size is normal. Minimal strandy change on the lateral film posteriorly probably | | due to mild atelectasis in the medial lung bases. There is fusion of most of the | | thoracic spine. Correlate for ankylosing spondylitis. IMPRESSION: 1. Sequential pacer | | placement over the left chest wall with leads to the right atrium and ventricle in | | appropriate position.2. No pneumothorax.3. Probable subpleural fat bilateral mid to | | lower lung zones laterally.4. Fusion of most of the thoracic spine. Correlate to | | exclude ankylosing spondylitis. | | 7:32 AM | |to mild atelectasis in the medial lung bases. There is fusion of most of the thoracic spine . Correlate for ankylosing spondylitis. | | | |IMPRESSION: | |1. Sequential pacer placement over the left chest wall with leads to the right atrium and ventricle in appropriate position. | |2. No pneumothorax. | |3. Probable subpleural fat bilateral mid to lower lung zones laterally. | |4. Fusion of most of the thoracic spine. Correlate to exclude ankylosing spondylitis. | | | | | + + CV VASCULAR PROCEDURE (10/24/2016 4:36 PM PST) + + | Specimen | + + | | + + + + + | Narrative | Performed At | + + + | This Point of Care (POC) ultrasound image has been reviewed and | | | interpreted by the physician identified as the performing physician in | | | the associated interpretation and report. | | + + + + + | Procedure Note | + + | Jonathan Hidalgo Conversion - 06/16/2019 3:00 PM PDT This Point of Care (POC) ultrasound | | image has been reviewed andinterpreted by the physician identified as the performing | | physician in theassociated interpretation and report. | | | + + POC Glucose (10/24/2016 1:01 PM PST) + + + + + + | Component | Value | Ref Range | Performed | Pathologist | | | | | At | Signature | + + + + + + | Glucose, | 114 (H)Comment: Testing | 65 - 99 mg/dL | EXTERNAL | | | Fingerstick | performed at [facility];[address] | | LAB | | | | [address];[place], [place] | | | | | | [address] | | | | + + + + + + + + | Specimen | + + | | + + + +---------+ + + | Performing | Address | City/State/Zipcode | Phone Number | | Organization | | | | + +---------+ + + | EXTERNAL LAB | | | | + +---------+ + + [facility] (10/24/2016 1:00 PM PST) + + | Specimen | + + | | + + + + + | Narrative | Performed At | + + + | [facility](NOSE) | EXTERNAL LAB | | Testing performed at [facility];[address] [place] [address];[place] [address] MRSA PCR | | | NEGATIVE Testing performed at | | | [facility];[address] [place] [address];[place] [address] | | + + + + +---------+ + + | Performing | Address | City/State/Zipcode | Phone Number | | Organization | | | | + +---------+ + + | EXTERNAL LAB | | | | + +---------+ + + Protime INR (10/24/2016 1:00 PM PST) + + + + + + | Component | Value | Ref Range | Performed | Pathologist | | | | | At | Signature | + + + + + + | INR | 1.1Comment: REFERENCE | | EXTERNAL | | | | RANGE:0.9 - 1.2 | | LAB | | | | NON-ANTICOAGULATED2.0 | | | | | | - 3.0 ALL OTHER | | | | | | THERAPEUTIC | | | | | | INDICATIONS2.5 - 3.5 | | | | | | MECHANICAL HEART VALVES, | | | | | | RECURRENT OR SYSTEMIC | | | | | | EMBOLISMTesting | | | | | | performed at [facility] | | | | | | [address];[place], [place] | | | | | | [address] | | | | + + + + + + + + | Specimen | + + | Blood specimen | | (specimen) | + + + +---------+ + + | Performing | Address | City/State/Zipcode | Phone Number | | Organization | | | | + +---------+ + + | EXTERNAL LAB | | | | + +---------+ + + External Lab: CBC (10/24/2016 1:00 PM PST) + + + + + + | Component | Value | Ref Range | Performed | Pathologist | | | | | At | Signature | + + + + + + | WBC | 8.14Comment: Testing | 3.80 - 11.00 | EXTERNAL | | | | performed at [facility];888 | K/uL | LAB | | | | [address];[place] | | | | | | [address] | | | | + + + + + + | Non- | 5.01Comment: Testing | 4.20 - 5.70 | EXTERNAL | | | Red Blood | performed at [facility];888 | M/uL | LAB | | | Cells | [address];[place] | | | | | Counted | [address] | | | | + + + + + + | Hemoglobin | 15.0Comment: Testing | 13.2 - 17.0 | EXTERNAL | | | | performed at [facility];888 | g/dL | LAB | | | | [address];[place] | | | | | | [address] | | | | + + + + + + | Hematocrit, | 44.8Comment: Testing | 39.0 - 50.0 % | EXTERNAL | | | POC | performed at [facility];[address] | | LAB | | | | [address];[place] | | | | | | [address] | | | | + + + + + + | MCV | 89.6Comment: Testing | 80.0 - 100.0 fl | EXTERNAL | | | | performed at [facility];888 | | LAB | | | | [address];[place] | | | | | | [address] | | | | + + + + + + | MCH | 29.9Comment: Testing | 27.0 - 34.0 pg | EXTERNAL | | | | performed at [facility];[address] | | LAB | | | | [address];[place] | | | | | | [address] | | | | + + + + + + | MCHC | 33.4Comment: Testing | 32.0 - 35.5 | EXTERNAL | | | | performed at [facility];888 | g/dL | LAB | | | | [address];[place] | | | | | | [address] | | | | + + + + + + | RDW-CV | 50.3Comment: Testing | 37 - 53 fl | EXTERNAL | | | | performed at [facility];[address] | | LAB | | | | [address];[place] | | | | | | [address] | | | | + + + + + + | Platelet | 111 (L)Comment: Testing | 150 - 400 K/uL | EXTERNAL | | | Count | performed at [facility];888 | | LAB | | | Plasma | [address];[place] | | | | | | [address] | | | | + + + + + + | MPV | 9.1Comment: Testing | fl | EXTERNAL | | | | performed at [facility];[address] | | LAB | | | | [address];[place] | | | | | | [address] | | | | + + + + + + | Differentia | AUTOMATEDComment: | | EXTERNAL | | | l Type | Testing performed at | | LAB | | | | KM;[address] | [address];[place] [address] | | | | + + + + + + | % Segmented | 63.78Comment: Testing | % | EXTERNAL | | | | performed at [facility];888 | | LAB | | | Neutrophils | [address];[place] | | | | | | [address] | | | | + + + + + + | % | 24.36Comment: Testing | % | EXTERNAL | | | Lymphocytes | performed at [facility];888 | | LAB | | | | [address];[place] | | | | | | [address] | | | | + + + + + + | % Monocytes | 8.57Comment: Testing | % | EXTERNAL | | | | performed at [facility];[address] | | LAB | | | | [address];[place] | | | | | | [address] | | | | + + + + + + | % | 2.68Comment: Testing | % | EXTERNAL | | | Eosinophils | performed at [facility];[address] | | LAB | | | | [address];[place] | | | | | | [address] | | | | + + + + + + | % Basophils | 0.61Comment: Testing | % | EXTERNAL | | | | performed at [facility];[address] | | LAB | | | | [address];[place] | | | | | | [address] | | | | + + + + + + | Absolute | 5.19Comment: Testing | 1.90 - 7.40 | EXTERNAL | | | Segmented | performed at [facility];888 | K/uL | LAB | | | Neutrophils | [address];[place] | | | | | | [address] | | | | + + + + + + | Absolute | 1.98Comment: Testing | 1.00 - 3.90 | EXTERNAL | | | Lymphocytes | performed at [facility];888 | K/uL | LAB | | | | [address];[place] | | | | | | [address] | | | | + + + + + + | Absolute | 0.70Comment: Testing | 0.00 - 0.80 | EXTERNAL | | | Monocytes | performed at [facility];888 | K/uL | LAB | | | | [address];[place] | | | | | | [address] | | | | + + + + + + | Absolute | 0.22Comment: Testing | 0.00 - 0.50 | EXTERNAL | | | Eosinophils | performed at [facility];888 | K/uL | LAB | | | | [address];[place] | | | | | | [address] | | | | + + + + + + | Absolute | 0.05Comment: Testing | 0.00 - 0.10 | EXTERNAL | | | Basophils | performed at [facility];888 | K/uL | LAB | | | | [address];[place] | | | | | | [address] | | | | + + + + + + + + | Specimen | + + | Blood specimen | | (specimen) | + + + +---------+ + + | Performing | Address | City/State/Zipcode | Phone Number | | Organization | | | | + +---------+ + + | EXTERNAL LAB | | | | + +---------+ + + Basic Metabolic Panel (10/24/2016 1:00 PM PST) + + + + + + | Component | Value | Ref Range | Performed | Pathologist | | | | | At | Signature | + + + + + + | Na | 140Comment: Testing | 135 - 145 | EXTERNAL | | | | performed at [facility];888 | mmol/L | LAB | | | | [address];[place] | | | | | | [address] | | | | + + + + + + | K | 3.9Comment: Testing | 3.5 - 4.9 | EXTERNAL | | | | performed at [facility];888 | mmol/L | LAB | | | | [address];[place] | | | | | | [address] | | | | + + + + + + | Cl | 103Comment: Testing | 99 - 109 mmol/L | EXTERNAL | | | | performed at [facility];[address] | | LAB | | | | [address];[place] | | | | | | [address] | | | | + + + + + + | CO2 | 32Comment: Testing | 23 - 32 mmol/L | EXTERNAL | | | | performed at [facility];[address] | | LAB | | | | [address];[place] | | | | | | [address] | | | | + + + + + + | Anion Gap | 9Comment: Testing | 5 - 20 mmol/L | EXTERNAL | | | | performed at [facility];[address] | | LAB | | | | [address] | | | | | | [address] | | | | + + + + + + | Glucose, | 121 (H)Comment: Testing | 65 - 99 mg/dL | EXTERNAL | | | Fasting | performed at [facility];[address] | | LAB | | | | [address];[place] | | | | | | [address] | | | | + + + + + + | BUN | 24Comment: Testing | 8 - 25 mg/dL | EXTERNAL | | | | performed at [facility];[address] | | LAB | | | | [address];[place] | | | | | | [address] | | | | + + + + + + | Creatinine | 1.2Comment: Testing | 0.70 - 1.30 | EXTERNAL | | | | performed at [facility];888 | mg/dL | LAB | | | | [address];[place] | | | | | | [address] | | | | + + + + + + | BUN/Creatin | 20Comment: Testing | | EXTERNAL | | | ine Ratio | performed at [facility];[address] | | LAB | | | | [address];[place] | | | | | | [address] | | | | + + + + + + | Calcium | 8.7Comment: Testing | 8.5 - 10.5 | EXTERNAL | | | | performed at [facility];888 | mg/dL | LAB | | | | [address];[place] | | | | | | [address] | | | | + + + + + + | Estimated | >60Comment: GFR <60: | mL/min/1.73m2 | EXTERNAL | | | GFR | CHRONIC KIDNEY DISEASE, | | LAB | | | | IF FOUND OVER A 3 MONTH | | | | | | PERIOD.GFR <15: KIDNEY | | | | | | FAILURE.FOR | | | | | | AMERICANS, MULTIPLY THE | | | | | | CALCULATED GFR BY | | | | | | 1.210.Testing performed | | | | | | at [facility];[address] [place] [address] | | | | | | [facility];[place] [address] | | | | + + + [...] + documented in this encounter Visit Diagnoses + + | Diagnosis | + + | Asystole (HCC) Cardiac arrest | + + documented in this encounter
--- OUTSIDE RECORDS SUMMARY | ~2020-06-27 | XMS | Encounter Summary ---
Demographics + + + | Address | [address] | | | [place] [address] | + + + | Home Phone | | + + + | Preferred Language | Unknown | + + + | Marital Status | Unknown | + + + | Tenriism Affiliation | PRO | + + + | Race | White | + + + | Ethnic Group | Not or | + + + Author + + + | Author | [facility] | + + + | Organization | [facility] | + + + | Address | Unknown | + + + | Phone | Unavailable | + + + Support + + +---------+ + | Name | Relationship | Address | Phone | + + +---------+ + | Beth Mas | ECON | Unknown | | + + +---------+ + Care Team Providers + +------+ + | Care Engineer Soils Name | Role | Phone | + +------+ + PCP | Unavailable | + +------+ + Encounter Details +--------+ + + + + | Date | Type | Department | Care Team | Description | +--------+ + + + + | 09/15/ | Results | NON-[facility] | Deni Hernandez V, | | | 2008 | Only | Department | [facility] | | | | | | [facility] Derm[facility]ology | | | | | | [address] [facility] | | | | | | [place] | | | | | | [id number] | | | | | | | [...] | + +--------+ + + + | DERMATOPATHOLOGY(WET | Routin | 09/15/2009 | | Results for this | | [facility]) | e | | | procedure are in the | | | | | | results section. | + +--------+ + + + documented in this encounter Results DERMATOPATHOLOGY(WET [place]) (09/15/2009) + + + + + + | Component | Value | Ref Range | Performed | Pathologist | | | | | At | Signature | + + + + + + | DERMATOPATH | SOURCE OF SPECIMEN:A | | [facility] | | | OLOGY(WET | FIRST TISSUE LEVEL IV | | DERMATOPATH | | | MNT) | [id number] CLINICAL | | OLOGY | | | | DESCRIPTION:Punch, 6mm, | | | | | | rt. abdomen; 6 x 5 mm | | | | | | variegated blue and | | | | | | brown semi-firmpapule; | | | | | | R/O melanoma vs vascular | | | | | | neoplasm. GROSS | | | | | | DESCRIPTION:Rt. abdomen. | | | | | | The specimen is | | | | | | received in formalin, | | | | | | labeled rt. abdomen,with | | | | | | the patient's name and | | | | | | consists of a oh and | | | | | | black punch | | | | | | biopsymeasuring 0.6 x | | | | | | 0.9 cm. The specimen | | | | | | is bisected and entirely | | | | | | submitted inone | | | | | | cassette. | | | | | | MICROSCOPIC | | | | | | DESCRIPTION:There is a | | | | | | small and well | | | | | | circumscribed papular | | | | | | neoplasm characterized | | | | | | by aproliferation of | | | | | | thin-walled moderately | | | | | | large endothelial-lined | | | | | | vessels,many of them | | | | | | filled with red cells. | | | | | | There is adnexal | | | | | | epithelia | | | | | | partiallyencircled some | | | | | | of the vessels as well | | | | | | as hyperkeratosis. | | | | | | | | | | | | DIAGNOSIS:ANGIOKERATOMA. | | | | | | CRW:emr09/20/09 | | | | | | My electronic | | | | | | signature indicates that | | | | | | I have personally | | | | | | reviewed alldiagnostic | | | | | | slides, the gross and/or | | | | | | microscopic portion of | | | | | | thisreport and | | | | | | formulated the final | | | | | | diagnosis. | | | | | | Rendering Diagnostician: | | | | | | Jeff Romero Jr., | | | | | | | | | | | | Yesii | | | | | | melida Signed 09/20/2009 | | | | + + + + + + + + | Specimen | + + | Other | + + + + + + + | Performing | Address | City/State/Zipcode | Phone Number | | Organization | | | | + + + + + | [facility] | [address] | [place] [address] | | | PATHOLOGY | [address] | | | + + + + + | [facility] | [address] | [place] [address] | | | DERMATOPATHOLOGY | [address] | | | + + + + + documented in this encounter Visit Diagnoses Not on filedocumented in this encounter"
--- OUTSIDE RECORDS SUMMARY | ~2020-06-27 | XMS | Encounter Summary ---
Demographics + + + | Address | [address] | | | [place] [address] | + + + | Home Phone | | + + + | Preferred Language | Unknown | + + + | Marital Status | | + + + | Baptism Affiliation | 1077 | + + + | Race | White | + + + | Ethnic Group | Not or | + + + Author + + + | Author | [facility] | | | and [place] | + + + | Organization | [facility] | | | [...] Team Providers + +------+ + | Care Lot Attendant Name | Role | Phone | + +------+ + PCP | Unavailable | + +------+ + Encounter Details +--------+ + + + + | Date | Type | Department | Care Team | Description | +--------+ + + + + | 09/12/ | Hospital | [facility] | Olaf Nicole | | | [facility] - | Encounter | [facility] | MD [address] | | | | | CARDIAC TELEMETRY | [address] | | | 09/14/ | | [address] | [place] [address] | | | 1999 | | [place] | [phone] | | | | | [address] | | | | | | [phone] | | | +--------+ + + + [...]
--- OUTSIDE RECORDS SUMMARY | ~2020-06-27 | XMS | Encounter Summary ---
Demographics + + + | Address | [address] | | | [place] [address] | + + + | Home Phone | | + + + | Preferred Language | Unknown | + + + | Marital Status | Unknown | + + + | Presybeterian Affiliation | PRO | + + + | Race | White | + + + | Ethnic Group | Not or | + + + Author + + + | Author | [facility] | + + + | Organization | [facility] | + + + | Address | Unknown | + + + | Phone | Unavailable | + + + Support + + +---------+ + | Name | Relationship | Address | Phone | + + +---------+ + | Beth Mas | ECON | Unknown | | + + +---------+ + Care Team Providers + +------+ + | Care Air Lift Operator Name | Role | Phone | + +------+ + | Gilberto Estrada MD | PCP | | + +------+ + Encounter Details +--------+ + + + + | Date | Type | Department | Care Team | Description | +--------+ + + + + | 02/20/ | Documentati | NON[facility] | Unknown . | | | 2020 | on | Department | | | +--------+ + + + [...]
--- OUTSIDE RECORDS SUMMARY | ~2020-06-27 | XMS | Encounter Summary ---
Demographics + + + | Address | [address] | | | [place] [address] | + + + | Home Phone | | + + + | Preferred Language | Unknown | + + + | Marital Status | | + + + | Muslim Affiliation | 1077 | + + + | Race | White | + + + | Ethnic Group | Not or | + + + Author + + + | Author | [facility] | | | and [place] | + + + | Organization | [facility] | | | and [...] Team Providers + +------+ + | Care Lens Mold Setter Name | Role | Phone | + +------+ + | Erin Forrester MD | PCP | | + +------+ + Encounter Details +--------+ + + + + | Date | Type | Department | Care Team | Description | +--------+ + + + + | 10/09/ | Orders Only | [facility] | Robel Ricci | | | 2014 | | CARDIOLOGY [place] | [address] | | | | | [facility] [address] | [address] | | | | | [address] | [place] [address] | | | | | [place], [place] | [phone] | | | | | [address] | | | | | | [phone] | | | +--------+ + + + [...] Performed At | + + + | [facility] CARDIOLOGY Nuclear Lexiscan Stress Test [...] [place], Rad Conversion - 06/17/2019 11:57 PM [facility] | | Lexiscan Stress Test History:75 Year [...]
--- OUTSIDE RECORDS SUMMARY | ~2020-06-27 | XMS | Encounter Summary ---
Demographics + + + | Address | [address] | | | [place] [address] | + + + | Home Phone | | + + + | Preferred Language | Unknown | + + + | Marital Status | | + + + | Jain Affiliation | 1077 | + + + | Race | White | + + + | Ethnic Group | Not or | + + + Author + + + | Author | [facility] | | | and [place] | + + + | Organization | [facility] | | | and [...] Team Providers + +------+ + | Care Policy Service Coordinator Name | Role | Phone | + +------+ + | Erin Forrester MD | PCP | | + +------+ + Reason for Visit + +--------+ + | Reason | Onset | Comments | | | Date | | + +--------+ + | Follow-up | 07/29/ | Call to schedule follow up appt. | | | 2018 | | + +--------+ + Encounter Details +--------+ + + + + | Date | Type | Department | Care Team | Description | +--------+ + + + + | 07/29/ | Telephone | [facility] | Britni Alcazar RN | Follow-up (Call to | | 2018 | | CARDIOLOGY [place] | | schedule follow up | | | | [address] | | appt. ) | | | | [place] | | | | | | [address] | | | | | | [phone] | | | +--------+ + + + [...] this encounter Miscellaneous Notes Telephone Encounter - Britni Alcazar RN - 07/29/2019 3:54 PM PDTCalled patient at home to schedule in patient appointment with Dr. Gupta or Kristie De Los Santos. Have not seen patient in offic e since 12/2017. Patient answered and scheduled for 09/02/19 with Kristie De Los Santos for follow up an d pacemaker check in office. Patient agreeable to plan. documented in this enc ounter Plan of [...]
--- OUTSIDE RECORDS SUMMARY | ~2020-06-27 | XMS | Encounter Summary ---
Demographics + + + | Address | [address] | | | [place] [address] | + + + | Home Phone | | + + + | Preferred Language | Unknown | + + + | Marital Status | | + + + | Tenriism Affiliation | 1077 | + + + | Race | White | + + + | Ethnic Group | Not or | + + + Author + + + | Author | [facility] | | | and [place] | + + + | Organization | [facility] | | [...] Team Providers + +------+ + | Care Armature And Rotor Winder Name | Role | Phone | + [...] | [address] | [address] [facility] | | | | | [place] | [address] [facility] | | | | | [address] | [address] | | | | | [phone] | | | +--------+ + + + [...] - 1.030 | EXTERNAL | | | [place], | | | LAB | | | [...] | | | | using the MDRD IDMS | | | | | | traceable [...]
--- OUTSIDE RECORDS SUMMARY | ~2020-06-27 | XMS | Encounter Summary ---
Demographics + + + | Address | [address] | | | [place] [address] | + + + | Home Phone | | + + + | Preferred Language | Unknown | + + + | Marital Status | | + + + | Bahai Affiliation | 1077 | + + + | Race | White | + + + | Ethnic Group | Not or | + + + Author + + + | Author | [facility] | | | and [place] | + + + | Organization | [facility] | | [...] Team Providers + +------+ + | Care Diesel Mechanic Helper Name | Role | Phone | + +------+ + | Erin Forrester MD | PCP | | + +------+ + Reason for Visit + +--------+ + | Reason | Onset | Comments | | | Date | | + +--------+ + | Device Check | 03/01/ | | | | 2020 | | + +--------+ + Encounter Details +--------+ + + + + | Date | Type | Department | Care Team | Description | +--------+ + + + + | 03/01/ | Telephone | [facility] | Kristie De Los Santos ANP | Device Check | | 2020 | | CARDIOLOGY [place] | [address] | | | | | [address] | [place], [place] | | | | | [place], [place] | [address] | | | | | [address] | | | | | | [phone] | | | +--------+ + + + [...] this encounter Miscellaneous Notes Telephone Encounter - June Tarango V - 03/01/2020 10:11 AM PDTLeft message for patient to reschedule device check in February. documented in this encounter Plan of Treatment +--------+ [...]
--- OUTSIDE RECORDS SUMMARY | ~2020-06-27 | XMS | Encounter Summary ---
Demographics + + + | Address | [address] | | | [place] [address] | + + + | Home Phone | | + + + | Preferred Language | Unknown | + + + | Marital Status | | + + + | Taoist Affiliation | 1077 | + + + | Race | White | + + + | Ethnic Group | Not or | + + + Author + + + | Author | [facility] | | | and [place] | + + + | Organization | [facility] | | | [...] Team Providers + +------+ + | Care Document Imaging Manager Name | Role | Phone | + +------+ + PCP | Unavailable | + +------+ + Encounter Details +--------+ + + + + | Date | Type | Department | Care Team | Description | +--------+ + + + + | 10/25/ | Emergency | [facility] | Syed Winchester | Fever, unspecified | | 2016 | | MEDICAL CENTER | DO [address] | fever cause; | | | | EMERGENCY CENTER | [address] | Leukocytosis, | | | | [address] | [place] | unspecified type | | | | [facility] [place] | [address] | | | | | [address] | [phone] | | | | | [phone] | | | +--------+ + + + [...] + + + | Blood Pressure | 131/60 | 10/25/2016 10:55 PM | | | | | PST | | + + + + + | Pulse | 99 | 10/25/2016 10:55 PM | | | | | PST | | + + + + + | Temperature | 38.6 C (101.5 F) | 10/25/2016 10:55 PM | | | | | PST | | + + + + + | Respiratory Rate | 16 | 10/25/2016 10:55 PM | | | | | PST | | + + + + + | Oxygen Saturation | - | - | | + + + + + | Inhaled Oxygen | - | - | | | Concentration | | | | + + + + + | Weight | - | - | | + + + + + | Height | - | - | | + + + + + | Body Mass Index | - | - | | + + + + + documented in this encounter ED Notes Syed Winchester DO - 10/25/2016 8:36 PM PSTFormatting of this note might be differen t from the original. ED Provider Notes by Syed Winchester DO at 10/25/162035 Author: Syed Winchester DO Service: Emergency Department Author Type: Physician Filed: 10/26/16 0313 Date of Service: 10/25/162035 Status: Signed Consultant Nurse: Syed Winchester DO (Physician) [facility] Department of Emergency Medicine 8:37 PM History of Present Illness Patient Identification Júnior Mas is a 76 y.o. male. Patient information was obtained from patient. History/Exam limitations: none. Patient presented to the Emergency Department by: Car History of Presenting Illness The patient is a 76 y.o. male presenting with Chief Complaint Patient presents with Fever- 9 Weeks To 72 Years "it was right at 100" Diarrhea Post-op Problem pacemaker placed yesterday Location- General Onset- Today Duration- Constant Severity/Character- Moderate Worse with- Nothing reported Better with- Nothing reported Radiation- None Denies- nausea, emesis, chest pain Admits- diarrhea (3 episodes), dry mouth, lightheadedness, shortness of breath Context-76 year old male presents to the ED with chief complaint of fever. Patient was disc harged from the hospital this morning, he had a pacemaker placed yesterday because his heart would skip beats up to 6 seconds.Patient reports that the fever was 100 F at home. He took 3 Tylenol around noon with temporary relief. PCP: TITA CHRISTOPHER Specialists: Past Medical History Diagnosis Date Atrial fibrillation (HCC) Chronic kidney disease Other chronic pain CHF (congestive heart failure) (HCC) Coronary artery disease Deep vein thrombosis (DVT) (HCC) Diabetes mellitus type II Hyperlipidemia Hypertension Joint pain Old myocardial infarction Neuromuscular disorder (HCC) Unspecified visual disturbance Other specified forms of chronic ischemic heart disease Arthritis Past Surgical History Procedure Laterality Date Abdominal surgery Coronary artery bypass graft Cardiac catheterization Cataract extraction Colonoscopy Eye surgery Tonsillectomy Appendectomy Sinus surgery Vasectomy Knee surgery Right 09/07/2013 Procedure: KNEE - TOTAL; Surgeon: Drew Hurst MD; Location: [facility] OR; Serv e: Orthopedics; Laterality: Right; alisha component alisha navigation Prior to Admission medications Medication Sig Start Date End Date Taking? Authorizing Provider acetaminophen-codeine (TYLENOL #2) 300-15 MG per tablet Take 1 tablet by mouth every 4 (fou r) hours as needed. Historical Provider allopurinol (ZYLOPRIM) 300 MG tablet Take 300 mg by mouth daily. Historical Provider carvedilol (COREG) 3.125 MG tablet Take 3.125 mg by mouth 2 (two) times daily with meals. Historical Provider cholecalciferol (VITAMIN D-3) 1000 UNITS tablet Take 1,000 Units by mouth daily. Histori marycruz Provider colchicine 0.6 MG tablet Take 0.6 mg by mouth daily as needed. Historical Provider folic acid (FOLVITE) 400 MCG tablet Take 400 mcg by mouth daily. Historical Provider furosemide (LASIX) 20 MG tablet Take 20 mg by mouth daily. Historical Provider glimepiride (AMARYL) 4 MG tablet Take 4 mg by mouth every morning before breakfast. Hist orical Provider isosorbide mononitrate (IMDUR) 60 MG 24 hr tablet Take 1 tablet by mouth daily. 10/18/15 Robel Ricci DO losartan (COZAAR) 50 MG tablet Take 1 tablet by mouth daily. 10/19/14 Mikal Ha MD metFORMIN (GLUCOPHAGE) 500 MG tablet Take 500 mg by mouth Before eavning meal. Historica l Provider metolazone (ZAROXOLYN) 2.5 MG tablet Take 1 tablet by mouth daily. 09/16/16 09/16/17 Luis Eduardo Ricci DO Multiple Vitamins-Minerals (EYE VITAMINS) CAPS Take 1 tablet by mouth. Historical Provid er nystatin-triamcinolone (MYCOLOG) ointment Apply topically 2 (two) times daily as needed. Historical Provider [place]-3 Fatty Acids (FISH OIL) 1200 MG CAPS Take 1,200 mg by mouth 2 (two) times daily. Historical Provider potassium chloride (K-DUR) 10 MEQ tablet Take 10 mEq by mouth 2 (two) times daily. Histo rical Provider simvastatin (ZOCOR) 40 MG tablet Take 40 mg by mouth nightly. Historical Provider warfarin (COUMADIN) 2.5 MG tablet Take 2.5 mg by mouth daily. Dr. Christopher regulates PTs His torical Provider Allergies Allergen Reactions Sulfa Antibiotics Hives Social History Social History Marital Status: Spouse Name: N/A Number of Children: N/A Years of Education: N/A Occupational History [employer] Social History Main Topics Smoking status: Former Smoker -- 40 years Types: Pipe Quit date: 10/27/1997 Smokeless tobacco: Never Used Alcohol Use: 0.0 oz/week 0 Standard drinks or equivalent per week Comment: rarely Drug Use: No Sexual Activity: Not on file Other Topics Concern Not on file Social History Narrative Family History Problem Relation Age of Onset Heart disease Mother I have personally reviewed the social history, pertinent history has been addressed. Review of Systems Constitutional: Positive for fever Negative for chills Eyes: Negative for vision changes Nose: Negative for congestion, nosebleeds Throat: Positive for dry mouth Negative for sore throat CV/Resp: Positive for shortness of breath Negative for chest pain, cough GI: Positive for diarrhea Negative for abdominal pain, nausea, vomiting : Negative for urinary problems Musculoskeletal: Negative for back pain, joint pain Skin: Negative for rash Neuro/Psych: Positive for lightheadedness Negative for headache Endo/heme/Lymph: Negative for swollen lymph nodes, easy bruising Physical Exam BP 133/62 mmHg | Pulse 102 | Temp(Src) 99.6 F (37.6 C) (Oral) | Resp 16 | SpO2 91% Vital signs interpretation: Tachycardic, otherwise within normal limits. Pulse Oximetry interpretation: Hypoxemic General: Alert, in no apparent distress Eyes: Normal inspection, pupils equal and round, non-icteric ENT: Ears normal Nose normal Moist mucous membranes Oropharynx clear Neck: Normal inspection Supple Cardiovasc: Rate and rhythm normal No murmurs 2+ pulses all 4 extremities Respiratory: Breath sounds normal bilaterally No rales, wheezing or rhonchi Abdomen: Soft, non-tender, non-distended No guarding or rebound No peritoneal sign Genitourinary: Deferred Rectal exam: Deferred Back: Normal inspection Extremities: No swelling or redness Skin: Color normal Warm and dry No rash Neuro: Alert, no AMS No gross motor/sensory deficits Moving all extremities Medical Decision Making and Emergency Department Course ED Department Course 76 y.o. male presents to the ED with a chief complaints of fever. Patient had a pacemaker placed yesterday and was discharged this morning. Will get labs, CXR, and reevaluate the pat ient. Review of vitals BP 133/62 mmHg | Pulse 102 | Temp(Src) 99.6 F (37.6 C) (Oral) | Resp 1 6 | SpO2 91% 9:51 PM Labs reviewed. Influenza swab is negative. Results are otherwise unremarkable. 10:30 PM CXR imaging reviewed. CXR is unremarkable. 10:36 PM Patient reevaluation. 10:40 PM Discussed case with Dr. aH, Digitizer Operator, who requests that the patient be st arted on antibiotics and can continue with outpatient follow up. 10:42 PM Patient is stable and feeling better at this time. I discussed all ED results and my clinical impression with the patient. Patient is ready for discharge. I advised patient t o follow up with a PCP and we discussed the emergent signs and symptoms that would necessita te a return to ED. The patient understands and agrees with the plan. All questions and branden rns addressed. Will discharge home with Rx for Levaquin. DDx: I considered meningitis, pharyngitis, otitis, UTI, gastroenteritis, bronchitis, pneumo kristen, viral URI, cellulitis, appendicitis, bacteremia, among others in my differential and wo rkup. Pt with fever, labs show mild leukocytosis started on abx and d/c'd home. Records Reviewed Old medical records. Nursing notes. Laboratory Evaluation Results Procedure Component Value Ref Range Date/Time Urinalysis (reflex to microscopic/reflex to culture) [[id number]] (Abnormal) Collected: 10/25/162218 Order Status: Completed Specimen Information: Urine, Clean Catch Updated: 10/25/16 22 34 COLOR UA YELLOW CLARITY CLEAR Specific [place], UA 1.020 1.002 - 1.030 LEUKOCYTE ESTERASE NEGATIVE NEGATIVE NITRITE NEGATIVE NEGATIVE UROBILINOGEN NORMAL <1.1 mg/dL PROTEIN NEGATIVE NEGATIVE mg/dL PH,URINE 5.0 5.0 - 8.0 BLOOD NEGATIVE NEGATIVE KETONES NEGATIVE NEGATIVE mg/dL BILIRUBIN NEGATIVE NEGATIVE GLUCOSE 50 (A) NEGATIVE mg/dL Influenza Antigen [[id number]] Collected: 10/25/162104 Order Status: Completed Specimen Information: Nasopharyngeal from Nasopharyngeal Cultur e Updated: 10/25/162141 INFLUENZA A NEGATIVE NEGATIVE INFLUENZA B NEGATIVE NEGATIVE Complete Metabolic Panel [[id number]] (Abnormal) Collected: 10/25/162102 Order Status: Completed Specimen Information: Blood Updated: 10/25/162132 SODIUM 138 135 - 145 mmol/L POTASSIUM 3.6 3.5 - 4.9 mmol/L CHLORIDE 95 (L) 99 - 109 mmol/L CO2 29 23 - 32 mmol/L ANION GAP AGAP 17 5 - 20 mmol/L GLUCOSE 117 (H) 65 - 99 mg/dL BUN 25 8 - 25 mg/dL CREATININE 1.6 (H) 0.70 - 1.30 mg/dL BUN/CREAT 16 CALCIUM 8.4 (L) 8.5 - 10.5 mg/dL TOTAL PROTEIN 7.7 6.3 - 8.2 g/dL Albumin 3.5 3.3 - 4.8 g/dL GLOBULIN 4.2 1.3 - 4.9 g/dL A/G 0.8 (L) 1.0 - 2.4 TBIL 1.4 0.1 - 1.5 mg/dL ALK PHOS 52 35 - 115 U/L AST 24 10 - 45 U/L ALT 23 10 - 65 U/L EGFR 45 (L) >60 mL/min/1.73m2 CBC w Auto Diff [[id number]] (Abnormal) Collected: 10/25/162102 Order Status: Completed Specimen Information: Blood Updated: 10/25/162115 WBC 12.07 (H) 3.80 - 11.00 K/uL RBC 5.15 4.20 - 5.70 M/uL HGB 15.7 13.2 - 17.0 g/dL HCT 46.2 39.0 - 50.0 % MCV 89.6 80.0 - 100.0 fl MCH 30.4 27.0 - 34.0 pg MCHC 33.9 32.0 - 35.5 g/dL RDW SD 48.1 37 - 53 fl PLT 99 (L) 150 - 400 K/uL MPV 8.7 fl DIFF TYPE AUTOMATED NEUTROPHILS 83.01 % LYMPHOCYTES 8.29 % MONOCYTES 7.46 % EOSINOPHILS 0.85 % BASOPHILS 0.39 % NEUTROPHILS ABS 10.02 (H) 1.90 - 7.40 K/uL LYMPHOCYTES ABS 1.00 1.00 - 3.90 K/uL MONOCYTES ABS 0.90 (H) 0.00 - 0.80 K/uL EOSINOPHILS ABS 0.10 0.00 - 0.50 K/uL BASOPHILS ABS 0.05 0.00 - 0.10 K/uL I personally reviewed the lab results and they have been posted to the chart. Pertinent po sitive and negative findings have been addressed appropriately and I have discussed any abno rmal labs with the patient. Radiology and EKG Evaluation Imaging Results XR Chest PA and Lateral (Final result) Result time: 10/25/16 22:35:50 Final result by Rad Results In [place] (10/25/16 22:35:50) Impression: 1. No acute cardiopulmonary process noted. Narrative: JNÚIOR MAS 1940 76 years XR CHEST 2 VIEW FRONTAL AND LATERAL 10/25/2016 10:32 PM INDICATION: Fever. TECHNIQUE: 2 views COMPARISON: Chest x-rays 10/15/2016 at 6:40 AM FINDINGS: Pacemaker generator seen overlying the left upper lung. The visualized lungs rui ear clear. Cardiomediastinal silhouette appears unremarkable. No pleural effusion seen. 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 ED Diagnoses Final diagnoses Fever, unspecified fever cause History of recent surgery Leukocytosis, unspecified type Disposition: ED Disposition Orders Discharge Condition at discharge: Stable Follow-up Information Follow up With Details Comments Contact Info Mikal Ha MD Call On Friday to schedule the next available appointment for further fol low up and evaluation [address] [facility] [address] Tita Christopher MD Call in 1 week As needed for further follow up and evaluation [address] [facility] [address] [place] [id number] [facility] Emergency Department If symptoms worsen [address] [facility] [address] Discharge Medications: Discharge Medication List as of 10/25/2016 10:57 PM START taking these medications Details levofloxacin (LEVAQUIN) 750 MG tablet Take 1 tablet by mouth daily., Starting 10/25/2016, U ntil Fri11/01/16, Print Procedures Additional Documentation Procedures Attending Note: Documentation assistance provided by Ktahy Hernandez (Scribe). Information recorded by the scribe has been reviewed and validated by me. I frieda lombardo with its contents. DO Syed Eaton DO 10/26/16 0313 documented in t his encounter Plan of Treatment +--------+ + + [...] for this | | | e | 10:32 PM | | procedure are in the | | | | PST | | results section. | + +--------+ + + + | URINALYSIS, REFLEX | Routin | 10/25/2016 | | Results for this | | MICROSCOPIC AND/OR | e | 10:19 PM | | procedure are in the | | CULTURE | | PST | | results section. | + +--------+ + + + | INFLUENZA A AND B | STAT | 10/25/2016 | | Results for this | | [place], [place] | | 9:05 PM | | procedure are in the | | | | PST | | results section. | + +--------+ + + + | EXTERNAL LAB: CBC | Routin | 10/25/2016 | | Results for this | | | e | 9:03 PM | | procedure are in the | | | | PST | | results section. | + +--------+ + + + | COMPREHENSIVE | Routin | 10/25/2016 | | Results for this | | METABOLIC PANEL | e | 9:03 PM | | procedure are in the | | | | PST | | results section. | + +--------+ + + + documented in this encounter Results XR Chest 2 Vws (10/25/2016 10:32 PM PST) + + | Specimen | + + | | + + + + + | Impressions | Performed At | + + + | 1. No acute cardiopulmonary process noted. Electronically | | | signed by David Sosa MD on 10/25/2016 10:35 PM | | + + + + + + | Narrative | Performed At | + + + | JÚNIOR MAS 1940 76 years XR CHEST 2 VIEW FRONTAL AND | | | LATERAL 10/25/2016 10:32 PM INDICATION: Fever. TECHNIQUE: 2 | | | views COMPARISON: Chest x-rays 10/15/2016 at 6:40 AM FINDINGS: | | | Pacemaker generator seen overlying the left upper lung. The | | | visualized lungs appear clear. Cardiomediastinal silhouette appears | | | unremarkable. No pleural effusion seen. Potential ankylosis involving | | | the thoracic spine. | | + + + + + | Procedure Note | + + | [place], Rad Conversion - 06/10/2019 6:48 PM TOMMIE [id number] yearsXR CHEST | | 2 VIEW FRONTAL AND [id number]/25/2016 10:32 PM INDICATION: Fever. TECHNIQUE: 2 views | | COMPARISON: Chest x-rays 10/15/2016 at 6:40 AM FINDINGS: Pacemaker generator seen | | overlying the left upper lung. The visualized lungs appear clear. Cardiomediastinal | | silhouette appears unremarkable. No pleural effusion seen. Potential ankylosis involving | | the thoracic spine. IMPRESSION: 1. No acute cardiopulmonary process noted. | | | | | |TECHNIQUE: 2 views | | | |COMPARISON: Chest x-rays 10/15/2016 at 6:40 AM | | | |FINDINGS: Pacemaker generator seen overlying the left upper lung. The visualized lungs rui ear clear. Cardiomediastinal silhouette appears unremarkable. No pleural effusion seen. 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 | | | |IMPRESSION: | |1. No acute cardiopulmonary process noted. | | | | | + + Urinalysis, Reflex Microscopic and/or Culture (10/25/2016 10:19 PM PST) + + + + + + | Component | Value | Ref Range | Performed | Pathologist | | | | | At | Signature | + + + + + + | Color | YELLOWComment: Testing | | EXTERNAL | | | | performed at [facility];[address] | | LAB | | | | [address];[place] | | | | | | [address] | | | | + + + + + + | Clarity, | CLEARComment: Testing | | EXTERNAL | | | Urine | performed at [facility];[address] | | LAB | | | | [address];[place] | | | | | | [address] | | | | + + + + + + | Specific | 1.020Comment: Testing | 1.002 - 1.030 | EXTERNAL | | | [place], | performed at [facility];[address] | | LAB | | | Urine | [address];[place] | | | | | | [address] | | | | + + + + + + | Leukocyte | NEGATIVEComment: Testing | | EXTERNAL | | | Esterase, | performed at [facility];[address] | | LAB | | | Urine | [address];[place] | | | | | | [address] | | | | + + + + + + | Nitrite, | NEGATIVEComment: Testing | | EXTERNAL | | | Urine | performed at [facility];[address] | | LAB | | | | [address];[place] | | | | | | [address] | | | | + + + + + + | Urobilinoge | NORMALComment: Testing | mg/dL | EXTERNAL | | | n, Urine | performed at [facility];[address] | | LAB | | | | [address];[place] | | | | | | [address] | | | | + + + + + + | Protein, | NEGATIVEComment: Testing | mg/dL | EXTERNAL | | | Urine | performed at [facility];[address] | | LAB | | | | [address];[place] | | | | | | [address] | | | | + + + + + + | pH, Urine | 5.0Comment: Testing | 5.0 - 8.0 | EXTERNAL | | | | performed at [facility];[address] | | LAB | | | | [address];[place] | | | | | | [address] | | | | + + + + + + | Blood, | NEGATIVEComment: Testing | | EXTERNAL | | | Urine | performed at [facility];[address] | | LAB | | | | [address];[place] | | | | | | [address] | | | | + + + + + + | Ketones | NEGATIVEComment: Testing | mg/dL | EXTERNAL | | | | performed at [facility];[address] | | LAB | | | | [address];[place] | | | | | | [address] | | | | + + + + + + | Bilirubin, | NEGATIVEComment: Testing | | EXTERNAL | | | Urine | performed at [facility];[address] | | LAB | | | | [address];[place] | | | | | | [address] | | | | + + + + + + | Glucose, | 50 (A)Comment: Testing | mg/dL | EXTERNAL | | | Urine | performed at [facility];[address] | | LAB | | | | [address];[place] | | | | | | [address] | | | | + + + + + + + + | Specimen | + + | | + + + +---------+ + + | Performing | Address | City/State/Zipcode | Phone Number | | Organization | | | | + +---------+ + + | EXTERNAL LAB | | | | + +---------+ + + Influenza A and B YANET Mcneal (10/25/2016 9:05 PM PST) + + | Specimen | + + | | + + + + + | Narrative | Performed At | + + + | INFLUENZA A NEGATIVE Testing | EXTERNAL LAB | | performed by [facility] Testing performed at [facility];[address] [facility];[place], [place] | | | [address] INFLUENZA B NEGATIVE | | | Testing performed by [facility] Testing performed at [facility];[address] [facility] | | | [facility];[place] [address] | | + + + + +---------+ + + | Performing | Address | City/State/Zipcode | Phone Number | | Organization | | | | + +---------+ + + | EXTERNAL LAB | | | | + +---------+ + + External Lab: CBC (10/25/2016 9:03 PM PST) + + + + + + | Component | Value | Ref Range | Performed | Pathologist | | | | | At | Signature | + + + + + + | WBC | 12.07 (H)Comment: | 3.80 - 11.00 | EXTERNAL | | | | Testing performed at | K/uL | LAB | | | | [place];[address];[place] [address] | | | | + + + + + + | Non- | 5.15Comment: Testing | 4.20 - 5.70 | EXTERNAL | | | Red Blood | performed at [facility];[address] | M/uL | LAB | | | Cells | [address];[place] | | | | | Counted | [address] | | | | + + + + + + | Hemoglobin | 15.7Comment: Testing | 13.2 - 17.0 | EXTERNAL | | | | performed at [facility];[address] | g/dL | LAB | | | | [address];[place] | | | | | | [address] | | | | + + + + + + | Hematocrit, | 46.2Comment: Testing | 39.0 - 50.0 % | EXTERNAL | | | POC | performed at [facility];[address] | | LAB | | | | [address];[place] | | | | | | [address] | | | | + + + + + + | MCV | 89.6Comment: Testing | 80.0 - 100.0 fl | EXTERNAL | | | | performed at [facility];[address] | | LAB | | | | [address];[place] | | | | | | [address] | | | | + + + + + + | MCH | 30.4Comment: Testing | 27.0 - 34.0 pg | EXTERNAL | | | | performed at [facility];[address] | | LAB | | | | [address];[place] | | | | | | [address] | | | | + + + + + + | MCHC | 33.9Comment: Testing | 32.0 - 35.5 | EXTERNAL | | | | performed at [facility];[address] | g/dL | LAB | | | | [address];[place] | | | | | | [address] | | | | + + + + + + | RDW-CV | 48.1Comment: Testing | 37 - 53 fl | EXTERNAL | | | | performed at [facility];[address] | | LAB | | | | [address];[place] | | | | | | [address] | | | | + + + + + + | Platelet | 99 (L)Comment: Testing | 150 - 400 K/uL | EXTERNAL | | | Count | performed at [facility];[address] | | LAB | | | Plasma | [address];[place] | | | | | | [address] | | | | + + + + + + | MPV | 8.7Comment: Testing | fl | EXTERNAL | | | | performed at [facility];[address] | | LAB | | | | [address];[place] | | | | | | [address] | | | | + + + + + + | Differentia | AUTOMATEDComment: | | EXTERNAL | | | l Type | Testing performed at | | LAB | | | | [facility];[address];[place] [address] | | | | + + + + + + | % Segmented | 83.01Comment: Testing | % | EXTERNAL | | | | performed at [facility];[address] | | LAB | | | Neutrophils | [address];[place] | | | | | | [address] | | | | + + + + + + | % | 8.29Comment: Testing | % | EXTERNAL | | | Lymphocytes | performed at [facility];[address] | | LAB | | | | [address];[place] | | | | | | [address] | | | | + + + + + + | % Monocytes | 7.46Comment: Testing | % | EXTERNAL | | | | performed at [facility];[address] | | LAB | | | | [address];[place] | | | | | | [address] | | | | + + + + + + | % | 0.85Comment: Testing | % | EXTERNAL | | | Eosinophils | performed at [facility];[address] | | LAB | | | | [address];[place] | | | | | | [address] | | | | + + + + + + | % Basophils | 0.39Comment: Testing | % | EXTERNAL | | | | performed at [facility];[address] | | LAB | | | | [address];[place] | | | | | | [address] | | | | + + + + + + | Absolute | 10.02 (H)Comment: | 1.90 - 7.40 | EXTERNAL | | | Segmented | Testing performed at | K/uL | LAB | | | Neutrophils | [facility];[address];[place] [address] | | | | + + + + + + | Absolute | 1.00Comment: Testing | 1.00 - 3.90 | EXTERNAL | | | Lymphocytes | performed at [facility];[address] | K/uL | LAB | | | | [address];[place] | | | | | | [address] | | | | + + + + + + | Absolute | 0.90 (H)Comment: Testing | 0.00 - 0.80 | EXTERNAL | | | Monocytes | performed at [facility];[address] | K/uL | LAB | | | | [address];[place] | | | | | | [address] | | | | + + + + + + | Absolute | 0.10Comment: Testing | 0.00 - 0.50 | EXTERNAL | | | Eosinophils | performed at [facility];[address] | K/uL | LAB | | | | [address];[place] | | | | | | [address] | | | | + + + + + + | Absolute | 0.05Comment: Testing | 0.00 - 0.10 | EXTERNAL | | | Basophils | performed at [facility];888 | K/uL | LAB | | | | [address];[place] | | | | | | [address] | | | | + + + [...] + +---------+ + + Comprehensive Metabolic Panel (10/25/2016 9:03 PM PST) + + + + + + | Component | Value | Ref Range | Performed | Pathologist | | | | | At | Signature | + + + + + + | Na | 138Comment: Testing | 135 - 145 | EXTERNAL | | | | performed at [facility];888 | mmol/L | LAB | | | | [address];[place] | | | | | | [address] | | | | + + + + + + | K | 3.6Comment: Testing | 3.5 - 4.9 | EXTERNAL | | | | performed at [facility];888 | mmol/L | LAB | | | | [address];[place] | | | | | | [address] | | | | + + + + + + | Cl | 95 (L)Comment: Testing | 99 - 109 mmol/L | EXTERNAL | | | | performed at [facility];[address] | | LAB | | | | [address];[place] | | | | | | [address] | | | | + + + + + + | CO2 | 29Comment: Testing | 23 - 32 mmol/L | EXTERNAL | | | | performed at [facility];[address] | | LAB | | | | [address];[place] | | | | | | [address] | | | | + + + + + + | Anion Gap | 17Comment: Testing | 5 - 20 mmol/L | EXTERNAL | | | | performed at [facility];[address] | | LAB | | | | [address];[place] | | | | | | [address] | | | | + + + + + + | Glucose, | 117 (H)Comment: Testing | 65 - 99 mg/dL | EXTERNAL | | | Fasting | performed at [facility];[address] | | LAB | | | | [address];[place] | | | | | | [address] | | | | + + + + + + | BUN | 25Comment: Testing | 8 - 25 mg/dL | EXTERNAL | | | | performed at [facility];[address] | | LAB | | | | [address];[place] | | | | | | [address] | | | | + + + + + + | Creatinine | 1.6 (H)Comment: Testing | 0.70 - 1.30 | EXTERNAL | | | | performed at [facility];888 | mg/dL | LAB | | | | [address];[place] | | | | | | [address] | | | | + + + + + + | BUN/Creatin | 16Comment: Testing | | EXTERNAL | | | ine Ratio | performed at [facility];[address] | | LAB | | | | [address];[place] | | | | | | [address] | | | | + + + + + + | Calcium | 8.4 (L)Comment: Testing | 8.5 - 10.5 | EXTERNAL | | | | performed at [facility];888 | mg/dL | LAB | | | | [address];[place] | | | | | | [address] | | | | + + + + + + | Protein, | 7.7Comment: Testing | 6.3 - 8.2 g/dL | EXTERNAL | | | Total | performed at [facility];[address] | | LAB | | | | [address];[place] | | | | | | [address] | | | | + + + + + + | Albumin | 3.5Comment: Testing | 3.3 - 4.8 g/dL | EXTERNAL | | | | performed at [facility];[address] | | LAB | | | | [address];[place] | | | | | | [address] | | | | + + + + + + | Globulin | 4.2Comment: Testing | 1.3 - 4.9 g/dL | EXTERNAL | | | | performed at [facility];[address] | | LAB | | | | [address];[place] | | | | | | [address] | | | | + + + + + + | A/G Ratio | 0.8 (L)Comment: Testing | 1.0 - 2.4 | EXTERNAL | | | | performed at [facility];[address] | | LAB | | | | [address];[place] | | | | | | [address] | | | | + + + + + + | Bilirubin | 1.4Comment: Testing | 0.1 - 1.5 mg/dL | EXTERNAL | | | Total | performed at [facility];[address] | | LAB | | | | [address];[place] | | | | | | [address] | | | | + + + + + + | ALP, | 52Comment: Testing | 35 - 115 U/L | EXTERNAL | | | External | performed at [facility];[address] | | LAB | | | | [address];[place] | | | | | | [address] | | | | + + + + + + | AST | 24Comment: Testing | 10 - 45 U/L | EXTERNAL | | | | performed at [facility];[address] | | LAB | | | | [address];[place] | | | | | | [address] | | | | + + + + + + | ALT | 23Comment: Testing | 10 - 65 U/L | EXTERNAL | | | | performed at [facility];[address] | | LAB | | | | [address];[place] | | | | | | [address] | | | | + + + + + + | Estimated | 45 (L)Comment: GFR <60: | mL/min/1.73m2 | EXTERNAL | [...] | | | | | | at [facility];[address];[place] [address] | | | | + + + [...] + | Diagnosis | + + | Fever, unspecified fever cause | + + | Leukocytosis, unspecified type | + + documented in this encounter
--- OUTSIDE RECORDS SUMMARY | ~2020-06-27 | XMS | Encounter Summary ---
Demographics + + + | Address | [address] | | | [place] [address] | + + + | Home Phone [...] Author + + + | Author | [facility] | + + + | Organization | [facility] | + + + | Address | Unknown | + + + | Phone | Unavailable | + + + Support + + +---------+ + | Name | Relationship | Address | Phone | + + +---------+ + | Beth Mas | ECON | Unknown | | + + +---------+ + Care Team Providers + +------+ + | Care Yacht Builder Name | Role | Phone | + [...] floor | | | | | | [place], [place] | | | | | | [address] | | | +--------+ + + + [...]
--- OUTSIDE RECORDS SUMMARY | ~2020-06-27 | XMS | Encounter Summary ---
Demographics + + + | Address | [address] | | | [place] [address] | + + + | Home Phone | | + + + | Preferred Language | Unknown | + + + | Marital Status | Unknown | + + + | Temple Affiliation | PRO | + + + [...] Team Providers + +------+ + | Care Silk Screen Printer Helper Name | Role | Phone | [...] | at [facility] | [address] | | | | | [address] | [place], [place] | | | | | [facility] [address] | [address] | | | | | [place], [place] | [phone] | | | | | [address] | | | | | | [phone] | | | +--------+ + + + [...] | | 0 | | | | [id number] | mouth once daily. | | | [...]
--- OUTSIDE RECORDS SUMMARY | ~2020-06-27 | XMS | Encounter Summary ---
Demographics + + + | Address | [address] | | | [place] [address] | + + + | Home Phone [...] Team Providers + +------+ + | Care Histotechnologist Supervisor Name | Role | Phone | + [...] | 2018 | | PADMINI Hernandez | [address] | POSSIBLE COMPONENT | | | | Rd [facility] Main | [facility] [place] | EXCHANGE, POSSIBLE | | | | Hospital Admitting | [address] | REVISION | | | | Desk Located on the | [phone] | | | | | 9th floor | | | | | | [place], [place] | | | | | | [address] | | | +--------+---------+ + + + [...] | | 0 | | | | [id number] | mouth once daily. | | | [...] Leon who advised PT to come to [facility] ED. Advised Dr. Yen to [...]
--- OUTSIDE RECORDS SUMMARY | ~2020-06-27 | XMS | Encounter Summary ---
Demographics + + + | Address | [address] | | | [place] [address] | + + + | Home Phone | | + + + | Preferred Language | Unknown | + + + | Marital Status | | + + + | Anabaptist Affiliation | 1077 | + + + | Race | White | + + + | Ethnic Group | Not or | + + + Author + + + | Author | [facility] | | | and [place] | + + + | Organization | [facility] | | | and [...] Team Providers + +------+ + | Care Graduate Student Instructor Name | Role | Phone | + +------+ + PCP | Unavailable | + +------+ + Encounter Details +--------+ + + + + | Date | Type | Department | Care Team | Description | +--------+ + + + + | 10/31/ | Hospital | [facility] | Conversion | 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 No signs of bleeding were noted upon dis continuation of TR band. Pt given discharge paperwork however left this behind. Pt VSS. P t denies pain. Pt discharged to home with spouse. onver zoe Transaction, Provider Unknown - 10/31/2015 1:58 PM PST Progress Notes by Allan Julio RPH at 10/31/15 0398 Author: Allan Julio RPH Service: (none) Author Type: Pharmacist Filed: 10/31/15 7104 Date of Service: 10/31/151357 Status: Signed Tattoo Artist: Allan Julio RPH (Pharmacist) Renal Dosing Monitoring: [...] Date of Service: 10/31/15 1102 Status: Signed Tattoo Artist: Alex Villegas MD (Physician) [facility] Service: Cardiology Pre-Operative History & Physical Interval [...] 1133 Note Time: 10/18/15 0950 Status: Signed Tattoo Artist: Robel Ricci DO (Physician) Expand All Collapse [...] current dose (simvastatin). DVT (deep venous thrombosis) ([facility]) Hx DVT, right leg, chronic venous insufficiency. On warfarin, managed by PCP. Arterial US, lower Ext, 10/09/2015: TDS, calcification of trifurcation vessels, mild-modera te disease in upper vessels. Diabetes mellitus, type 2 ([facility]) DM2, managed by PCP. F/U with TITA [...] 2 (two) times daily as need ed. 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
--- OUTSIDE RECORDS SUMMARY | ~2020-06-27 | XMS | Encounter Summary ---
Demographics + + + | Address | [address] | | | [place] [address] | + + + | Home Phone | | + + + | Preferred Language | Unknown | + + + | Marital Status | Unknown | + + + | Roman Catholic Affiliation | PRO | + + + | Race | White | + + + | Ethnic Group | Not or | + + + Author + + + | Author | [facility] | + + + | Organization | [facility] | + + + | Address | Unknown | + + + | Phone | Unavailable | + + + Support + + +---------+ + | Name | Relationship | Address | Phone | + + +---------+ + | Beth Mas | ECON | Unknown | | + + +---------+ + Care Team Providers + +------+ + | Care Surgical Consultant Name | Role | Phone | + +------+ + | Gilberto Estrada MD | PCP | | + +------+ + Reason for Visit + +--------+ + | Reason | Onset | Comments | | | Date | | + +--------+ + | Refill Request | 04/12/ | | | | 2019 | | + +--------+ + Encounter Details +--------+--------+ + + + | Date | Type | Department | Care Team | Description | +--------+--------+ + + + | 04/12/ | Refill | Infectious | Sukerman, Abril S, | Refill Request | | 2019 | | [facility] at [facility] | MD [address] | | | | | [address] | [address] | | | | | Loop Physician's | [place], [place] | | | | | [place] floor | [address] | | | | | [place], [place] | [phone] | | | | | [address] | | | | | | [phone] | | | +--------+--------+ + + + [...]
--- OUTSIDE RECORDS SUMMARY | ~2020-06-27 | XMS | Encounter Summary ---
Demographics + + + | Address | [address] | | | [place] [address] | + + + | Home Phone | | + + + | Preferred Language | Unknown | + + + | Marital Status | | + + + | Yazidi Affiliation | 1077 | + + + [...] Team Providers + +------+ + | Care Speech Language Pathologist Travel Name | Role | Phone | + +------+ + | Erin Forrester MD | PCP | | + +------+ + Encounter Details +--------+ + + + + | Date | Type | Department | Care Team | Description | +--------+ + + + + | 03/08/ | Orders Only | [facility] | Conversion | | | 2019 | | [facility]PHR[facility] | Transaction, | | | | | [address] | Provider Unknown | | | | | [address] | [phone] | | | | | [address] | | | | | | [phone] | | | +--------+ + + + [...]
--- OUTSIDE RECORDS SUMMARY | ~2020-06-27 | XMS | Encounter Summary ---
Demographics + + + | Address | [address] | | | [place] [address] | + + + | Home Phone [...] Author | [facility] | + + + | Organization | [facility] | + + + | Address | Unknown | + + + | Phone | Unavailable | + + + Support + + +---------+ + | Name | Relationship | Address | Phone | + + +---------+ + | Beth Mas | ECON | Unknown | | + + +---------+ + Care Team Providers + +------+ + | Care Hearing Health Technician Name | Role | Phone | [...] pain, | | 2018 | Visit | [facility] [address] | MD [address] | unspecified | | | | [address] | [place], [place] | chronicity (Primary | | | | [address] | [address] | Dx) | | | | [place], [place] | [phone] | | | | | [address] | | | | | | [phone] | | | +--------+---------+ + + + [...] might be different fr om the original. [facility] Today's date: [...] listed. GHASSAN SHERMAN MD ORTHOPAEDICS AT [address] [place] [phone] Orders Placed This Encounter X-RAY KNEE 2 [...]
--- OUTSIDE RECORDS SUMMARY | ~2020-06-27 | XMS | Encounter Summary ---
Demographics + + + | Address | [address] | | | [place] [address] | + + + | Home Phone | | + + + | Preferred Language | Unknown | + + + | Marital Status | Unknown | + + + | Methodist Affiliation | PRO | + + + | Race | White | + + + | Ethnic Group | Not or | + + + Author + + + | Author | [facility] | + + + | Organization | [facility] | + + + | Address | Unknown | + + + | Phone | Unavailable | + + + Support + + +---------+ + | Name | Relationship | Address | Phone | + + +---------+ + | Beth Mas | ECON | Unknown | | + + +---------+ + Care Team Providers + +------+ + | Care Bindery Machine Tender Name | Role | Phone [...] | | | | | associated | [address] | | | | | | with | [address] | | | | | | internal | Mary Norris | | | | | | right knee | [place], [place] | | | | | | prosthesis, | [address] | | | | | | subsequent | Phone: | | | | | | encounter | [phone] | | | | | | Procedures | Fax: | | | | | | OCCUPATIONAL | [phone] | | | | | | THERAPY [...] | | | | | associated | [address] | | | | | | with | [address] | | | | | | internal | Mary Norris | | | | | | right knee | [place], [place] | | | | | | prosthesis, | [address] | | | | | | subsequent | Phone: | | | | | | encounter | [phone] | | | | | | Procedures | Fax: | | | | | | PHYSICAL | [phone] | | | | | | THERAPY [...] + + | 06/11/ | Hospital | [facility] [address] | Sandra Valle MD | | | 2018 - | Encounter | [address] | [address] | | | | | [place], | [address] | | | 06/17/ | | [place] [address] | [place], [place] | | | 2018 | | [phone] | [phone] | | | | | | [phone] | | | | | | | | | | | | Edyta Demarco MD | | | | | | [address] | | | | | | [address] | | | | | | [place], [place] | | | | | | [address] | | | | | | [phone] | | | | | | | | | | | | Dean Ugarte MD | | | | | | [address] | | | | | | [address] [place], | | | | | | [place] [address] | | | | | | [phone] | | | | | | | | | | | | Stephan Mercado MD | | | | | | [address] | | | | | | [address] | | | | | | [place], [place] | | | | | | [address] | | | | | | [phone] | | | | | | | | | | | | Dayan Valverde, | | | | | | [address] | | | | | | [address] | | | | | | [place], [place] | | | | | | [address] | | | | | | [phone] | | | | | | | | | | | | Hugh Park MD | | | | | | [address] | | | | | | [place], | | | | | | [place] [address] | | | | | | [phone] | | | | | | | | | | | | Ann Mahmood MD | | | | | | [address] | | | | | | [address] | | | | | | [place], [place] | | | | | | [address] | | | | | | [phone] | | | | | | | [...] (s/p PCI x3, CABG x2) complicated by product delivery specialist erich systolic heart failure (EF 45%) due [...] excellent response. He will continue PT/OT at [facility] swing bed unit. Per orthopedic surgery, [...] I-CAPS 280-10-2 mg Cap Generic drug: antiox. no.59-wdab2s-dabnxxv1m-pxb-ree Take 1 capsule by mouth once daily. [...] (Non-Steroidal Anti-Inflammatory Drug) Renal Failure Avoid per Denier Control Operator recommendations Sulfa (Sulfonamide Antibiotics) Rash Vital [...] information for after-discharge care Discharge Destination IP [place] [facility] . Specialty: Acute Care Hospital Contact information [address] [facility] [address] ID Location: [facility] swing bed unit Appointments: Dr. Sherman on 07/23/18 at 10:40am. The discharge note was forwarded to the PCP for review. Discharging Physician: Ann Mahmood MD Suggested CPT: 48779 Discharge Management > 30 minute I spent more than 35 minutes mcdr-tz-ozag with the patient of which 70% was [...] | | 0 | | | | no.77-ceha3i-lbqleel9z-nsf-tzj | mouth once daily. | | | [...] negative pressure wound therapy dressing right knee [id number] Subjective: Doing ok overall. No CP/SOB. Tolerating [...] Plan to DC today to SNF in [place]. SNF can pull sutures at 2 weeks from operat kai date (June 27 is 2 weeks post op). Plan to return to Dr. Sherman' clinic 6 weeks an d also have ID clinic visit on that day. Appreciate [facility] and ID help in managing this complex [...] knee at that time. Elias Soriano MD [facility] Department of Orthopaedics and Rehabilitation PGY-1 Pager [phone] Ann Vang MD - 4:42 PM PDT [...] (s/p PCI x3, CABG x2) complicated by product delivery specialist erich systolic heart failure (EF 45%) due [...] mg daily Dispo: Anticipate discharge tomorrow to [facility] bed unit if renal function is s table Code status: Full code Diet: Regular diet Prophy: warfarin and heparin Ann Mahmood MD Living Supervisorfur nailer Clinical Hospitalist and Medicine Teaching Services [facility] Pager [phone] Suggested CPT: 38527 Subsequent Visit Detailed/High complexity 35 min I spent 37 minutes vjqm-wu-mdbf with the patient of which 78% was [...] negative pressure wound therapy dressing right knee [id number] Subjective: Doing ok overall. No CP/SOB. Tolerating [...] to home as t ransporting back to [place] may present the patient and family undo hardship. 6. Dressings/Drains: Pulled yesterday? 7. Dispo/Discharge: Anticipate discharge to SNF in next 1-3 days if all criteria met. 8. Follow-up: Please call the clinic to make a follow up appointment in approximately 2 wee ks with ORTHO TRAUMA & FRACTURE, . AP and lateral of R knee at that time. Elias Soriano MD [facility] Department of Orthopaedics and Rehabilitation PGY-1 Pager [phone] atel, Tanvir - 06/16/2018 8:20 AM PDT [...] three and a half hours away from [place]. At this time, we are unsur e of his ability to follow up with an OPAT clinic or if there is a provider near [place], where the patient resides. 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 This patient was staffed [facility] Dr. Villalobos, who agrees with the above assessment and plan unless otherwise documented. Tanvir Ayala [facility] P SUBJECTIVE Interval Events: No acute events overnight S: patient reports he is feeling well this morning. States he was able to meet with a caseworker and had decided to go to [...] Dona Mercado MD Division of Hospital Medicine [facility] Pager [phone] I spent more than 35 minutes janb-yj-mrud with the patient of which greater than [...] negative pressure wound therapy dressing right knee [id number] Subjective: Doing ok overall, not too much pain in right knee. Looking forward to getting cloth washer back tender to home, "My wants to get back [...] to home as t ransporting back to [place] may present the patient and family undo hardship. 6. Dressings/Drains: Continue drain 7. Dispo/Discharge: Anticipate discharge to SNF in next 1-3 days if all criteria met. 8. Follow-up: Please call the clinic to make a follow up appointment in approximately 2 wee ks with ORTHO TRAUMA & FRACTURE, . AP and lateral of R knee at that time. Sisi Pablo [facility] Orthopaedic Trauma Surgery Pager [phone] Stepahn Aguirre MD - 06/14/2018 8:59 AM PDT [...] Dona Mercado MD Division of Hospital Medicine [facility] Pager [phone] I spent more than 35 minutes zdrr-br-vqpa with the patient of which greater than [...] negative pressure wound therapy dressing right knee [id number] Subjective: Pain improving in R knee. Objective: [...] a follow up appointment in approximately 2 [facility] with ORTHO TRAUMA & FRACTURE, . AP and lateral of R knee at that time. SEBAS PLEITEZ MD Pager [phone] Stephan Aguirre M D - 06/13/2018 9:51 [...] Dona Mercado MD Division of Hospital Medicine [facility] Pager [phone] I spent more than 35 minutes bzxq-hj-laby with the patient of which greater than [...] negative pressure wound therapy dressing right knee [id number] Subjective: Painful in R knee today, but [...] a follow up appointment in approximately 2 [facility] with ORTHO TRAUMA & FRACTURE, . AP and lateral of R knee at that time. SEBAS PLEITEZ MD Pager [phone] Stephan Aguirre M D - 06/12/2018 1:24 [...] Dona Mercado MD Division of Hospital Medicine [facility] Pager [phone] I spent more than 35 minutes dose-km-gycb with the patient of which greater than [...] total arthroplasty. Nika martinez was referred to [facility] for joint revision, and presented emergently to [facility] ED from [facility] ([place], [place]). Prior to presentation patient states that [...] IV (baseline cr 1.8-2.0), has had prior UT, no CVA. For his right lower extremity [...] mild distal inferior-apical ischemia, LVEF 53%. -10/2015 [facility] with 90% ostial first diagonal, 85% ostial second diagonal, occluded stent of proximal RCA with left to right coronary collaterals, Patent SVG to LAD Ischemic Cardiomyopathy c/b Chronic Systolic Heart Failure and Diastolic Heart Failure -10/2015 [facility] with EF 45% and inferiobasal akinesia [...] po daily Carvedilol 12.5mg po daily -Y [place]-3 fatty acid 1,200mg po bid Acetaminophen-codeine po [...] the Social Hx as appropriate. 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 -would consult shipping associate for enhanced nutrition in post-operative period Non-Insulin [...] as unclear why patient was placed on exterminator termite anticoagulation after prior provoked DVT. Dean Ugarte MD Clinical Hospitalist Services [facility] Pager [phone] 06/11/2018 10:44 PM [facility] DEPARTMENT: Hosp ([facility]) - [id number] Place of Service: Date of Service: 07/25/2016 [facility] [id number] Modifiers:GC Resident Involved: No Service: PRIMARY HOSPITALIST Suggested CPT: 87777 Initial Visit Comp/High Complexity 70 min I [...] Antibiotics and Frequent lab draws Procedure location: Unit:[facility] Room: 14 Providers: Attending name: Attending physically present: No PICC Nurse name: Frances Fair RN BSN VAT Assisted by Christina March RN BSN VAT Pre-Procedure Consent: written consent obtained Consent given by: Patient Patient identity confirmed per protocol: Yes Team Pause: Immediatly prior to the procedure a pause per protocol was called. A pause veri fies correct patient, procedure, equipment, therapeutic support staff and site/side marked as required. CLABSI Prevention [...] area Basilic vein. Cat heter lot number: [id number] with a length of 55 cm was [...] Service: 08/01/2015 Attending Surgeon: Ghassan Sherman MD Process Control Programmer(s): mesfin thompson MD Preoperative Diagnosis: 1. right total knee prosthetic joint infection. Postoperative Diagnosis: same Procedures Performed: 1. Right knee arthrotomy with drainage for infection and polyethylene exchange 2. Application TINO disposible negative pressure wound therapy dressing right knee [id number] Anesthesia: General endotracheal anesthesia. Implants: excahgned alisha triathalon poly size 15, 13mm EBL: 50 Complications: None Specimens: 6 cultures, 1 path Indication For Procedure: Solo Alves was transferred to [facility] for sepsis after previosuly having been treated with a right total knee. He ws medically unstable and transferred to [facility] medical service. An apsirate was positive. [...] Patricia wrap. He was then awoken from [facility] and transported back to the postanesthesia care [...] as it stands. Ghassan Sherman MD, MPH Geophysical E Logger, [place] [address] [email or web address] mented in this encounter Consult Notes [...] patient will need to follow up at [facility] on July 23 with orthopedics. During t hat time,we will cooridnate so that he may follow up with ID/OPAT in regards to his treatmen t. He will be discharged to [facility] to receive inpatient therapy and OPAT. 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 at [facility]. If patient is discharged fr om [...] the primary team. This patient was staffed [facility] Villalobos, who agrees with the above assessment and plan unless otherwise documented. Tanvir Ayala [facility] P SUBJECTIVE Interval Events: No acute [...] 07/24/18 to be continued via OPAT at [facility] Microbiology Data: Source Date Results [...] tablet allopurinol 300 mg oral tablet antiox.mv no.02-iiof1y-uchlewf6b-wrl-tdt (I-CAPS) 280-10-2 mg oral capsule carvedilol 12.5 [...] Anticoagulation Clinic/Provider: New PCP Dr. Don Estrada ([phone]) Date INR Warfarin Dose 06/17/2018 1.78 2.5 [...] make recommendations. Please page clinical ph armacist (#[phone]) or call central inpatient pharmacy ([phone]) with questions. Rashard Jacob Pharm. D. Candidate Associated attestation - Mary Wade [facility] - 06/17/2018 11:14 AM PDT--I have reviewed the note written by pharmacy operations manager Rashard Jacob and I agree with the content and his plan for warfarin on this patient. Thank you, Mary Wade [facility]. Pager [phone] Mary Wade [facility] - 06/16/2018 1:26 PM [...] Anticoagulation Clinic/Provider: new PCP Dr. Don Estrada ([phone]) Date INR Warfarin Dose 06/16/2018 1.51 2.5mg [...] make recommendations. Please page clinical ph armacist (#[phone]) or call central inpatient pharmacy ([phone]) with questions. Thank you for consult, Mary Wade [facility]. Pager [phone] Trish Blankenship MD - 10:46 AM PDTAssociated Order(s): IP CONSULT TO INFECTIOUS DISEASESFormatting of [facility] note might be different from the original. [facility] Infectious Diseases OPAT Referral for Discharge Planning Team B: OPAT RN Jaye Winchester, Office: [phone], Pager: [phone] ID Diagnosis: PJI Antibiotic agent and dosing: [...] has an ortho appointment 10:40 sa day) Wireless Store Manager: For all patients requiring IV antibiotic therapy, please route your OPAT [place] n of Care Note (.CMOPAT) to [facility] "p OPAT/Infectious Diseases clinic" Pool at discharge. [...] and make recommendations. Please page clinical pharmacist (#[phone]) or call central inpatient pharmacy ([phone]) with questions. Subjective/Objective: Allergies: Nsaids (non-steroidal anti-inflammatory [...] by his new PCP Don Estrada MD ([phone]). 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 We will discuss [facility] OPAT vs outside providers. Formalized recs pending Recommendations were communicated directly to the primary team. This patient was staffed [facility] Dr[facility] Villalobos, who agrees with the above assessment and plan unless otherwise documented. Thank you for the consult, we will follow along with you. Tanvir Ayala [facility] P SUBJECTIVE HPI: Júnior Mas is [...] arthritis. The patient was then transferred from [place] to [facility] for fu rther evaluation. While here, imaging [...] 300 mg by mouth once daily. antiox. no.35-fjjh7v-xndybqs8f-wxm-xxh (I-CAPS) 280-10-2 mg oral capsule Take 1 [...] mouth every Friday. Take 1 tablet by [facility] all other days of the week. Current [...] (Non-Steroidal Anti-Inflammatory Drug) Renal Failure Avoid per Denier Control Operator recommendations Sulfa (Sulfonamide Antibiotics) Rash Social [...] care. Ishaan Villalobos MD [facility], PharmD - 06/14/2018 7:36 PM [...] lab draw. - Please page clinical pharmacist (#[phone]) or call central inpatient pharmacy ([phone]) wit h questions. Subjective/Objective: Júnior Mas, a [...] CULTURE, TISSUE-PROSTHETIC JOINT INFECTION AER AND MARIELOS [[id number]] (Abnormal) [facility] Collec dilcia: 06/12/18 1354 Lab Status: Preliminary result Specimen: Tissue from Knee - right Updated: 06/14/18 1344 CULTURE RESULT [facility] Staphylococcus epidermidis (A) Ref Range: Narrative: Culture Report: Staphylococcus epidermidis Gram Stain: No squamous epithelial cells Rare polymorphonuclear cells No organisms seen Thank you, Ramon Mercado, PharmD, [facility] Clinical Pharmacist elphine, Torey Adame [...] and make recommendations. Please page clinical pharmacist (#[phone]) or call central inpatient pharmacy ([phone]) with questions. Subjective/Objective: Júnior Mas, a 78 [...] by his new PCP Don Estrada MD ([phone]). The patient reports Dr Estrada wanted him [...] you for the consult, Evgeny Akers PharmD, [facility] Pager [phone] Evgeny Robles PharmD - 06/13/2018 8:41 AM [...] on stable regimen. Please page clinical pharmacist (#[phone]) or call central inpatient pharmacy ([phone]) with q uestions. Subjective/Objective: Indication: infectious disorder of joint Therapy start date: 06/12/18 Anticipated duration: TBD Goal trough: ~15 mg/L Urine output: unavailable for most of the past 24 hours Renal function: stable , current SCr 1.66 (Baseline SCr 1.6-1.8) Actual body weight: Weight: 86.7 kg (191 lb 1.6 oz) (06/13/18 8520) Pertinent cultures/sensitivities: 06/12/18 blood and tissue cultures - in process Thank you for the consult, Evgeny Akers PharmD, [facility] Pager [phone] Harley Echols MD - 06/11/2018 7:27 PM PDT REPLACED BY [facility] DEPARTMENT OF ORTHOPAEDICS & REHABILITATION HISTORY & PHYSICAL EXAMINATION Patient: Júnior Mas Encounter Date: 06/11/2018 Attending Physician: Maral Leon MD HISTORY OF PRESENT ILLNESS: Júnior Mas is a 78 year old male with CHF, gout, CAD with prior UT, DMII, HTN who presents with 2 weeks of progressive right knee pain, stiffness, fevers and malaise. He had his tota l knee arthroplasty done in [address] Hurst at [facility] for advance d DJD. He's had [...] culture s pending. He was transferred to [facility] for further management of a septic prosthetic knee. Implants: Slovan Triathlon Total Knee System 1. Size 4 [...] consented and added on to the [place] [facility] edu. Admitted to hospitalist service; keep NPO. PLAN: Disposition: admit to clinical hospitalist service Surgery: yes, I&D with staged revision tomorrow Diet: npo effective now Further Imaging: no additional at this time Supervision: Plan has been discussed with Dr. Leon. Follow up:Please call the clinic to make a follow up appointment in approximately 2 weeks w [facility] ORTHO TRAUMA & FRACTURE, The orthopaedics consult pager is #[phone], please call with questions. Harley Weaver MD Resident Department of Orthopaedics Pager [phone] [facility] Department of Orthopaedics & Rehabilitation [address] Mail Code: OP31 [facility] [id number] Associated attestation - Ghassan Sherman MD - [...] call me for questions. GHASSAN SHERMAN MD [facility] [address] [id number] [place] [address] documented in this encounter ED [...] (H) 0.70 - 1.30 mg/dL EGFR - EMIRATI 39 (L) >60 mL/min EGFR NON -EMIRATI 32 (L) >60 mL/min SODIUM, PLASMA (LAB) [...] total knee replacement in 2012 done in [facility]. Right k nee also became more swollen at that time, though without any warmth or redness. Pain worse with any movement and better at rest. He was evaluated by his PCP and started on coumadin for question of DVT, though RLE ultraso und was negative. Seen by Dr. René Yen (orthopedics) in [place] 06/09 with the following labs. - WBC [...] 06/11/2018 Heart block 06/11/2018 Pacemaker-dependent due to [place] cardiac rhythm insufficient to support life 8 [...] exam, work-up with his orthopedic surgeon and [place], he has a right knee prosthetic joint infection. Laboratory and imaging results including ESR, CRP were reviewed and interpreted, and notabl e for the following: - significantly elevated ESR and CRP - arthrocentesis at [place] with 79,000 WBCs The patient received the following in the emergency department (including medications, inte rventions, consultations, and reassessments): - orthopedics consultation, plan for [place] tomorrow Given this, patient required admission for further care. We spoke to the [facility] ist service, who accepted patient to their [...] Information: Patient discharging to swing bed at [facility] in [facility]. Reviewed DC to SNF AVS with patient and family, all questions answered, reinforced fo llow up appointments per AVS. PICC line in RUE with dressing CDI at discharge. TINO dressing CDI with green light flashing at discharge. Telephone report given to FLY Vanegas at [facility] facility at 1125. Transportation provided by family in private vehicle. Patient dischar taye in stable condition with all belongings. Discharge Nurse: PADMINI MAGAÑA RN andoff - Galina Varela RN - 06/16/2018 11:09 PM PDTNursing Handoff Patient Daily Goal: rest (06/16/18 1545) Patient Specific Preferences: When asked if pt moves while he is in a recliner, he states " no, once I'm there I stay", education provided on importance of repositioning for pressure i njury prevention even in recliner chair. (06/15/18 2962) [facility] IP NURSE HANDOFF: [facility] hospital course events: [...] njury prevention even in recliner chair. (06/15/18 2006) [facility] IP NURSE HANDOFF: [facility] hospital course events: [...] Met Case Management OPAT Plan of Care: [facility] hospital discharge date: 06/17/2018 This patient will be followed for all post hospital OPAT care needs by: [facility] OPAT/Infectiou s Diseases Clinic, ; IV antibiotic orders were provided to: Other vendor facility, Name: [facility] Sw[facility], , , Attn: Emily Mcarthur, Vascular Access proce deepthi note faxed to facility Parenteral supportive orders for labs and vascular access care were provided to: Same as yesika lopez Other details pertinent to OPAT Plan of care: n/a Candace Maldonado RN, 06/16/2018 2:52 PM: lan of [facility] - Umm oJy - 06/16/2018 10:24 AM PDTFormatting of this [...] throughout session other than pt and therapist: rn cardiac rehab Current unit: 9k Brief Hospital Course:Júnior Mas [...] with FWW: minimum assist, 15 feet with rn cardiac rehab stand by assist and follow ing with wheelchair. Chair to chair transfer front wheeled walker and minimum assist Pt left up in recliner chair, call light/urinal and belongings all in reach. [facility] Difficulty turning over in bed [...] to do/total assistance - Total/Dependen t Assist [facility] Basic Mobility Total Score 14 Interpretation of [facility] Short Form - Basic Mobility: CMS Modifier [...] recommendations: to be determined . BRICE Blount 30557 andoff - Emily Covarrubias RN - 06/16/2018 [...] prevention even in recliner chair. (06/15/18 0953) [facility] IP NURSE HANDOFF: [facility] hospital course events: [...] As evidenced by: Poor intake tonight from 9064-1901 despite encouragement. He states that his water [...] njury prevention even in recliner chair. (06/15/18 7547) [facility] IP NURSE HANDOFF: [facility] hospital course events: [...] throughout session other than pt and therapist: rn cardiac rehab and student observer Current unit: 9k [facility] Hospital Course: Júnior Mas is a [...] cell phone and water all in reach. [facility] BASIC MOBILITY Difficulty turning over in bed [...] to do/total assistance - Total/Dependen t Assist [facility] Basic Mobility Total Score 9 Interpretation of [facility] Short Form - Basic Mobility: CMS Modifier [...] Equipment recommendations: to be determined BRICE Blount 88684 andoff - Maria Dolores Gurrola RN - [...] njury prevention even in recliner chair. (06/15/18 4840) [facility] IP NURSE HANDOFF: [facility] hospital course events: [...] nutrient distribution type or amount Nutrition Assessment: marketing services specialist received. Pt does not like food here, [...] Mendez, MS, RD, LD, CNSC Pager #: [phone] Comments: Júnior Mas is a 78 y.o. 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 Monitor UOP- no ouput from 7517-1855. CHS notified- BMS ordered. encourage fluids. MOBILITY: [...] RN - 06/14/2018 2:13 PM PDTNursing Handoff [facility] IP NURSE HANDOFF: [facility] hospital course events: [...] PM PDT Physical Therapy Evaluation and Treatment [id number] JÚNIOR MAS [facility] Day: 3 Date of : [...] than therapist and pt: patient and son; SHOT HOLE DRILLER surjit hylton with mobility portion of session. [...] going down ramp) Vision/Hearing: hearing aids (very CREEK; states he refuses hearing aids) Patient / Family Goal: patient will not state; patient : For patient to return home. Language: Malaysian. Barriers: Very [place], not fully attentive. Pain: "lots"; refuses [...] assist after focus on m idline. PT, SHOT HOLE DRILLER and patient encourage patient to get up to a chair, with assistance, patient r efused 4 times. Outcome Measure(s): 5 Time Sit to Stand: unable. >15 seconds predicts recurrent fallers [facility] BASIC MOBILITY Difficulty turning over in bed [...] to do/total assistance - Total/Dependen t Assist [facility] Basic Mobility Total Score 9 Interpretation of [facility] Short Form - Basic Mobility: CMS Modifier [...] underestimate Ended session: Patient supine in bed. SHOT HOLE DRILLER attending to patient. ASSESSMENT: Patient presents s/p [...] Patient will score 20 >/= 24/24 on [facility] Basic Mobility outcomes measure upon discharge. [...] RN - 06/14/2018 2:37 AM PDTNursing Handoff [facility] IP NURSE HANDOFF: [facility] hospital course events: [...] RN - 06/13/2018 1:32 AM PDTNursing Handoff [facility] IP NURSE HANDOFF: [facility] hospital course events: [...] information: see anesthesia record Functional Epidural: No ANALYTIC PROGRAMMER: No Respiratory: RR: 17, O2 Sat: 98 %, O2 Delivery: Nasal cannula Breath Sounds: WDL Except (SEUN - not diagnosed) TAYLOR: LLL: RUL: RLL: SEUN No Comment: none Cardiac: BP: 113/47 HR: 94 GI: Nausea/Vomiting Status: No Signs/Symptoms: Interventions: Assessment: Comments: toleratingPO : Last void: at 1900 Contact Name: Beth Contact Number: [phone] Family contacted: Yes Comment:updated family Belongings:none in [...] in the provider note. Sandra Valle MD [facility] [employer] ransfer Note - Arnie Busby ANP - 06/11/2018 3:19 PM PDT Call from Dr. Eric eYn, [facility] Pt with hx of CHF with significant fluid retention, right knee replacement, chronic leg ulc ers has infected total knee. Presented to clinic today with right knee swelling and pain. Right knee aspirate today: 79k white cells Markedly elevated CRP and sed rate Temp 99.4, vitals stable and normal Spoke with [facility] orthopedic surgeon Dr. Leon who advised transfer to [facility] ED [facility] Rita Alex - 06/11/2018 3:19 PM PDTPt with post procedure infection, R total knee. Connected ref with ROCAEL Sanders. [facility] Rita Barker - 06/11/2018 2:09 PM PDTRef previously [facility] Dr. Maral Leon who advised PT to come to [facility] ED. Advised Dr. Yen to call ED [...] organism | | | | | | ([facility]) | | + +--------+ + + [...] organism | | | | | | ([facility]) | | + +--------+ + + [...] organism | | | | | | ([facility]) | | + +--------+ + + [...] - DARSHANA | [address] | [place], [place] | | | KIERRA POINT OF CARE | [address] | [address] | | | TESTS | | | [...] [facility] | [address] | [place] [address] | | | SERVICES, CORE | PARK [...] | | | LABORATORY | | | EMIRATI | | | SERVICES, | | | [...] the MDRD equation recommended by the | [facility] | | National Kidney Disease Education Program. [...] + + + + + | [facility] | [address] [facility] | [place] [address] | | | SERVICES, CORE | MARY [...] [facility] | [address] | [place], [place] | | | OPHELIA LOZADA OF CARE | [facility] | [address] | | | TESTS | | | [...] [place] | [address] | [place], [place] | | | KIERRA POINT OF CARE | [address] | [address] | | | TESTS | | | | + + + + + X-RAY PORTABLE CHEST 1 VIEW (06/16/2018 4:29 PM PDT) + + | Specimen | + + | | + + + + + | Narrative | Performed At | + + + | EXAM: DC CHEST 1 VIEW HISTORY: PICC placement. Prosthetic [...] Note | + + | Service Account, Med[employer] In Interface - 06/16/2018 4:44 PM PDT EXAM: DC CHEST 1 | | VIEW HISTORY: PICC [...] necessary, edited the report. I agree with [facility] report as now presented. | [...] draws Procedure location: | | | Unit:9 [facility] Room: 14 Providers: Attending name: Attending | | | physically present: No PICC Nurse name: Frances Fair LEASING SPECIALIST | | | VAT Assisted by Christina March RN BSN VAT Pre-Procedure Consent: | | | written consent obtained Consent given by: Patient Patient | | | identity confirmed per protocol: Yes Team Pause: Immediatly prior to | | | the procedure a pause per protocol was called. A pause verifies | | | correct patient, procedure, equipment, therapeutic support staff and site/side | | | marked as [...] | area Basilic vein. Catheter lot number: [id number] with a length of 55 | | [...] - BERNAAM | [address] | [place], [place] | | | KIERRA POINT OF CARE | [address] | [address] | | | TESTS | | | [...] [facility] | [address] | [place] [address] | | | SERVICES, CORE | PARK [...] | | | LABORATORY | | | EMIRATI | | | SERVICES, | | | [...] + + + + + | [facility] | [address] | [place] [address] | | | SERVICES, KAREEM | MARY [...] (H) | 70 - 99 mg/dL | [facility] - | | | GLUCOSE, | | [...] MARQUAM | [address] | [place], [place] | | | OPHELIA LOZADA OF FUAD | [facility] | [address] | | | TESTS | | | [...] [place] | [address] | [place], [place] | | | OPHELIA LOZADA OF FUAD | [address] | [address] | | | TESTS | | | [...] DARSHANA | [address] | [place], [place] | | | KIERRA [facility] | [facility] | [address] | | | TESTS | | | [...] + + + + + | [facility] | [address] | [place] [address] | | | SERVICES, CORE | MARY [...] | | | LABORATORY | | | EMIRATI | | | SERVICES, | | | [...] + + + + + | [facility] | [address] | [place] [address] | | | SERVICES, CORE | PARK [...] | + + + + + | [employer] [facility] | [address] | [place] [address] | | | SERVICES, CORE | PARK [...] [facility] | [address] | [place] [address] | | | KAREEM FINCH | MARY [...] [facility] | [address] | [place] [address] | | | SERVICES, CORE | PARK [...] | + + + + + | [facility] | [address] | [place] [address] | | | SERVICES, CORE | MARY [...] - DARSHANA | [address] | [place], [place] | | | [facility] | [address] | [address] | | | TESTS | | | [...] | | | LABORATORY | | | EMIRATI | | | SERVICES, | | | [...] is appropriate. | LABORATORY | | Page [phone] or [phone] with questions. Thank you. GFR is | [...] + + + + + | [facility] | [address] | [place] [address] | | | SERVICES, CORE | PARK [...] + + + + + | [facility] | [address] | [place] [address] | | | SERVICES, CORE | PARK [...] is appropriate. | LABORATORY | | Page [phone] or call [phone] with questions. Thank you. | SERVICES, CORE | + + + + + + + + | Performing | Address | City/State/Zipcode | Phone Number | | Organization | | | | + + + + + | [facility] | [address] | [place] [address] | | | SERVICES, CORE | [address] | | | + + + + + CAPILLARY BLOOD GLUCOSE (NO CHG), POC (06/14/2018 3:38 PM PDT) + +---------+ + + + | Component | Value | Ref Range | Performed | Pathologist | | | | | At | Signature | + +---------+ + + + | BLOOD | 216 (H) | 70 - 99 mg/dL | [facility] - | | | GLUCOSE, | | [...] [place] | [address] | [place], [place] | | | OPHELIA LOZADA OF CARE | [address] | [address] | | | TESTS | | | [...] MARQUAM | [address] | [place], [place] | | | OPHELIA LOZADA OF CARE | [address] | [address] | | | TESTS | | | [...] [facility] | [address] | [place] [address] | | | SERVICES, CORE | PARK [...] | | | LABORATORY | | | EMIRATI | | | SERVICES, | | | [...] + + + + + | [facility] | [address] | [place] [address] | | | SERVICES, CORE | PARK [...] | WH[facility]NEY [place] | [address] | [place], [place] | | | OPHELIA LOZADA OF FUAD | [facility] | [address] | | | TESTS | | | [...] BERNAAM | [address] | [place], [place] | | | OPHELIA LOZADA OF CARE | [facility] | [address] | | | TESTS | | | [...] (H) | 70 - 99 mg/dL | [facility] - | | | GLUCOSE, | | [...] + | WH[facility]NEY [place] | [address] | [place], [place] | | | OPHELIA LOZADA OF CARE | [address] | [address] | | | TESTS | | | [...] + + | ECG | Borderline prolonged DC | | [facility] | | | [...] DEPT OF | [address] | [place], [place] | | | CARDIOLOGY | [address] | [address] | | + + + + + [...] + + + | [facility] [place] | [address] | [place], [place] | | | KIERRA POINT OF CARE | [address] | [address] | | | TESTS | | | [...] + + + + + | [facility] | [address] | [place] [address] | | | SERVICES, CORE | PARK [...] | | | LABORATORY | | | EMIRATI | | | SERVICES, | | | [...] + + + + + | [facility] | [address] | [place] [address] | | | SERVICES, CORE | [address] | | | + + + + + MAGNESIUM, PLASMA (06/12/2018 10:24 PM PDT) + +-------+ + + + | Component | Value | Ref Range | Performed | Pathologist | | | | | At | Signature | + +-------+ + + + | MAGNESIUM,P | 1.8 | 1.6 - 2.6 mg/dL | [facility] | | | LASMA | | | [...] [facility] | [address] | [place] [address] | | | SERVICES, KAREEM | MARY [...] | | | LABORATORY | | | EMIRATI | | | SERVICES, | | | [...] the MDRD equation recommended by the | [facility] | | National Kidney Disease Education Program. [...] [facility] | [address] | [place] [address] | | | SERVICES, CORE | MARY [...] | + + + + + | [facility] | [address] | [place] [address] | | | SERVICES, | [address] [...] [facility] | [address] | [place] [address] | | | SERVICES, | [address] [...] [facility] | [address] | [place] [address] | | | SERVICES, CORE | PARK [...] [facility] | [address] | [place] [address] | | | SERVICES, | [address] [...] + + + + + | [facility] | [address] | [place] [address] | | | KAREEM FINCH | MARY [...] DARSHANA | [address] | [place], [place] | | | KIERRA POINT OF CARE | [address] | [address] | | | TESTS | | | [...] | | | LABORATORY | | | EMIRATI | | | SERVICES, | | | [...] [facility] | [address] | [place] [address] | | | SERVICES, CORE | PARK [...] | + + + + + | [facility] | [address] | [place] [address] | | | SERVICES, KAREEM | PARK [...] [facility] | [address] [facility] | [place], [place] | | | KIERRA [facility] | [address] | [address] | | | TESTS | | | | + + + + + PROCEDURE NOTE (06/12/2018 2:57 PM PDT) + + + | Narrative | Performed At | + + + | Ghassan Sherman MD 06/17/2018 2:15 PM Date of Service: | | | 08/01/2015 Attending Surgeon: Ghassan Sherman MD | | | Process Control Programmer(s): mesfin thompson MD Preoperative Diagnosis: 1. 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 Postoperative Diagnosis: | | | same Procedures Performed: 1. Right knee arthrotomy with | | | drainage for infection and polyethylene exchange 2. Application | | | TINO disposible negative pressure wound therapy dressing right knee | | | 40t85st Anesthesia: General endotracheal anesthesia. | | | Implants: excahgned alisha triathalon poly size 15, 13mm EBL: 50 | | | Complications: None Specimens: 6 cultures, 1 path Indication | | | For Procedure: Solo Alves was transferred to [facility] for sepsis | | | after previosuly [...] | | stands. Ghassan Sherman MD, MPH Geophysical E Logger, Dept. of | | | Orthopaedics [facility] [address] | | | Maricel [address]. [address] [place] [address] | | | [email or web address] | | + + + CAPILLARY BLOOD GLUCOSE (NO CHG), POC (06/12/2018 2:42 PM PDT) + +---------+ + + + | Component | Value | Ref Range | Performed | Pathologist | | | | | At | Signature | + +---------+ + + + | BLOOD | 134 (H) | 70 - 99 mg/dL | [facility] - | | | GLUCOSE, | | [...] [place] | [address] | [place], [place] | | | OPHELIA LOZADA OF CARE | [address] | [address] | | | TESTS | | | [...] D[facility]SHANA | [address] | [place], [place] | | | OPHELIA LOZADA OF FUAD | [address] | [address] | | | TESTS | | | [...] Propionibacterium due to growth of other | [facility] | | organsims. Gram Stain: No squamous epithelial cells Moderate | | | polymorphonuclear cells No organisms seen | | + + + + + + + + | Performing | Address | City/State/Zipcode | Phone Number | | Organization | | | | + + + + + | [facility] | [address] | [place] [address] | | | [place] | | | [...] - | | | | | | [facility] | | + + + + + [...] Propionibacterium due to growth of other | [place] | | organsims. Gram Stain: No squamous epithelial cells No | | | polymorphonuclear cells No organisms seen | | + + + + + + + + | Performing | Address | City/State/Zipcode | Phone Number | | Organization | | | | + + + + + | [facility] | [address] | [place] [address] | | | [place] | | | [...] - | | | | | | [place] | | + + + + + [...] + | [facility] | [address] | [place] [address] | | | [place] | | | | + + + [...] - | | | | | | [facility] | | + + + + + [...] | + + + + + | [facility] - | [address] | [place] [address] | | | [place] | | | | + + + [...] | + + + + + | [facility] - | [address] | [place] [address] | | | [place] | | | | + + + [...] | | | | | | number [phone].A. Knee, | | | | | | [...] | + + + + + | [facility] | [address] | [place] [address] | | | PATHOLOGY | [address] [...] | + + + + + | [facility] - | [address] | [place] [address] | | | [place] | | | | + + + [...] [place] | [address] | [place], [place] | | | OPHELIA LOZADA OF CARE | [address] | [address] | | | TESTS | | | [...] [facility] | [address] | [place], [place] | | | KIERRA POINT OF CARE | [address] | [address] | | | TESTS | | | [...] + + | [facility] [place] | [address] [facility] [address] | [place], [place] | | | [facility] | [address] | [address] | | | TESTS | | | [...] [facility] | [address] | [place] [address] | | | SERVICES, KAREEM | PARK [...] | + + + + + | [facility] | [address] | [place] [address] | | | SERVICES, CORE | MARY [...] | + + + + + | [facility] | [address] | [place] [address] | | | SERVICES, CORE | MARY [...] [facility] | [address] | [place] [address] | | | SERVICES, CORE | PARK [...] | + + + + + | [facility] | [address] | [place] [address] | | | SERVICES, | [address] [...] | + + + + + | [facility] | [address] [facility] | [place] [address] | | | SERVICES, CORE | MARY [...] | | | LABORATORY | | | EMIRATI | | | SERVICES, | | | [...] + + + + + | [facility] [employer] | [address] [facility] | [place] [address] | | | SERVICES, CORE | MARY [...] | + + + + + | [facility] | [address] [facility] | [place] [address] | | | KAREEM FINCH | MARY [...] + + + + + | [facility] | [address] | [place] [address] | | | SERVICES, KAREEM | MARY [...] + + + + + | [facility] | [address] | [place] [address] | | | SERVICES, CORE | PARK [...] | + + + + + | [employer] | [address] | [place] [address] | | | SERVICES, CORE | [address] | | | + + + + + ED INFORMATION EXCHANGE (06/11/2018 6:04 PM PDT) + + | Specimen | + + | | + + + + + | Narrative | Performed At | + + + | [id number] This patient has registered at the [facility] | [facility] | | [facility] Emergency Department For more | MEDICAL | | information visit: | TECH[employer]OLOGIES | | [email or web address] | | | 35ffec Security Events No [...] Chief Complaint Aug | | | 2017 [facility] [place] Emergency | | | Emergency 10,800. REF Recent Inpatient Visit | | | Summary No recorded inpatient visits. E.D. Visit Count (12 mo.) | | | Facility Visits [facility] 1 Total 1 | | | Note: [...] | | facilities for additional information. 2018 [employer] | | | [employer] - [place], [place] - | | | [email or web address] | | + + + + + | Procedure Note | + + | Service Account, Rtf Results Inbound - 06/11/2018 6:06 PM PDT Formatting of this | | note might be different from the original.DANIEL?NOTIFICATION?06/11/2018 18:04?CHACE, | | JÚNIOR? patient has registered at the [facility] | | [place] [facility] For more information visit: | | [email or web address] Security | | EventsNo recent Security Events currently on fileED Care GuidelinesThere are currently | | no ED Care Guidelines in DANIEL for this patient. Please check your facility's medical | | records system.Recent Emergency Department Visit SummaryAdmit Date [facility] | | Type Major Type Diagnoses or Chief Complaint Jun 11, 2018 [facility] | | [facility] [place] Emergency Emergency 10,800. REF Recent Inpatient Visit | | SummaryNo recorded inpatient visits. E.D. Visit Count (12 mo.)Facility Visits [facility] | | [facility] 1 Total 1 Note: Visits [...] aforementioned facilities for additional information. ? 2018 [employer] | | [employer] - [place], [place] - [email or web address] | |Facility Visits | |[facility] 1 | |Total 1 | |Note: Visits [...] facilities for additional information. | |? 2018 [employer] - [place], [place] - [email or web address] | + + + + + + + | Performing | Address | City/State/Zipcode | Phone Number | | Organization | | | | + + + + + | [facility] | [address] | [place], [place] | [phone] | | TE[employer] | [address] | [address] | | + + + + + [...] | + + | Pacemaker-dependent due to [place] cardiac rhythm insufficient to support life | [...] mg, intramuscular, | | | NEEDED, Starting [facility] 06/11/18 at | | | 2306, Until [...]
--- OUTSIDE RECORDS SUMMARY | ~2020-06-27 | XMS | Encounter Summary ---
Demographics + + + | Address | [address] | | | [place] [address] | + + + | Home Phone [...] Team Providers + +------+ + | Care Sample Prep Technician Name | Role | Phone | + +------+ + | Gilberto Estrada MD | PCP | | + +------+ + Encounter Details +--------+ + + + + | Date | Type | Department | Care Team | Description | +--------+ + + + + | 07/22/ | Documentati | Infectious | Abril Shields, | | | 2018 | on | Diseases at [facility] | [address] | | | | | [address] | [address] | | | | | Loop Physician's | [place], [place] | | | | | [place], [facility] floor | [address] | | | | | [place], [place] | [phone] | | | | | [address] | | | | | | [phone] | | | +--------+ + + + [...]
--- OUTSIDE RECORDS SUMMARY | ~2020-06-27 | XMS | Encounter Summary ---
Demographics + + + | Address | [address] | | | [place] [address] | + + + | Home Phone [...] Team Providers + +------+ + | Care Meatcutter Name | Role | Phone | + [...] | | | | | | | [place] | | | | | | | ESOPHAGOGAST | | | | | | | RODUODENOSCO | | | | | | | PY TRANSORAL | | | | | | | DIAGNOSTIC | | | | | | | [place] EGD | | | | | | | BALLOON | | | | | | | DILATION | | | | | | | ESOPHAGUS | | | | | | | <30 MM DIAM | | | | | | | [place] | | | | | | | [...] + + | 07/31/ | Hospital | [facility] | Willow Colin MD | | | 2017 | Encounter | [facility] | [address] | | | | | [address] | [address], | | | | | [place] | [place] [address] | | | | | [address] | [phone] | | | | | [phone] | | | +--------+ + + + [...] fluids. 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 documented in this encounter Medications at [...] Electronically signed Willow Colin MD 07/31/2017 14:06 [facility] 2:1 1 PM PDTOp Note - [...] (H) | 70 - 109 mg/dL | SIOBHANE | | | POC | | | [facility] | | | | [...] + | [facility] | [address] | [place] | [phone] | | [facility] | | [id number] | | | - LABORATORY | | [...] | | squamocolumnar junction. - Negative for Self's goblet cell | | | metaplasia or dysplasia. B. Stomach, biopsy: - Benign gastric | | | mucosa with patchy vascular congestion. - Negative for significant | | | inflammation, atrophy, intestinal metaplasia or dysplasia. - | | | Negative for Helicobacter pylori with HE stain. [facility] [place]:caw:[id number] GROSS | | | DESCRIPTION: A. The specimen, received in formalin, labeled | | | "Paul Mas," further designated "distal esophageal biopsies," consists | | | of two oh tissues, 0.2 and 0.4 cm. Submitted in (A1). B. The | | | specimen, received in formalin, labeled "Hernan Mas," further | | | designated "gastric biopsies," consists of three oh tissues averaging | | | 0.3 cm. Submitted in (B1). tn:NEFTALI: PERFORMING LABORATORY: The | | | technical and professional components were performed by [facility] | | | [facility] [employer], [address] [place] [address] | | | (Railroad Construction Director: Don Morrell D.O.; IA#: [id number]). | | | Diagnostician: Gavin Michaud MD Pathologist Electronically | | | Signed 08/01/2017 | | + + + + +---------+ + + | Performing | Address | City/State/Zipcode | Phone Number | | Organization | | | | + +---------+ + + | [facility] | | | | | [facility] [...] ONCE PRN, Wheezing, | | | Starting [facility] 07/31/17 at 1242, | | | For [...]
--- OUTSIDE RECORDS SUMMARY | ~2020-06-27 | XMS | Encounter Summary ---
Demographics + + + | Address | [address] | | | [place] [address] | + + + | Home Phone | | + + + | Preferred Language | Unknown | + + + | Marital Status | Unknown | + + + | Nondenominational Affiliation | PRO | + + + [...] Team Providers + +------+ + | Care Twist Tester Name | Role | Phone | [...] 2017 | | SW Justus Hernandez | [address] | EXCHANGE MICRO x 7 | | | | Rd [facility] | [place], [place] | PATH x 2 | | | | Hospital Admitting | [address] | | | | | Desk Located on the | [phone] | | | | | 9th floor | | | | | | [place], [place] | | | | | | [address] | | | +--------+---------+ + + + [...] (s/p PCI x3, CABG x2) 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 He will continue PT/OT at [facility] swing bed unit. Per orthopedic [...] I-CAPS 280-10-2 mg Cap Generic drug: antiox.mv no.67-atjf2h-pmmjybd9k-jrp-nun Take 1 capsule by mouth once daily. [...] (Non-Steroidal Anti-Inflammatory Drug) Renal Failure Avoid per Stress Analyst recommendations Sulfa (Sulfonamide Antibiotics) Rash Vital Signs [...] information for after-discharge care Discharge Destination IP [facility] . Specialty: Acute Care Hospital Contact information [address] [place] [id number] [place] Location: [facility] swing bed unit Appointments: Dr. Sherman on 07/23/18 at 10:40am. The discharge note was forwarded to the PCP for review. Discharging Physician: Ann Mahmood MD Suggested CPT: 65762 Discharge Management > 30 minute I spent more than 35 minutes zcva-fd-ldgl with the patient of which 70% was [...] | | 0 | | | | no.17-kkur1o-cepcdhc6l-nbt-frp | mouth once daily. | | | [...] negative pressure wound therapy dressing right knee [id number] Subjective: Doing ok overall. No CP/SOB. Tolerating [...] Plan to DC today to SNF in [place]. SNF can pull sutures at 2 weeks [...] knee at that time. 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 erich systolic heart failure (EF 45%) due [...] mg daily Dispo: Anticipate discharge tomorrow to [facility] bed unit if renal function is s table Code status: Full code Diet: Regular diet Prophy: warfarin and heparin Ann Mahmood MD Home Care Assistantvocational nurse lvn Clinical Hospitalist and Medicine Teaching Services [facility] Pager [phone] Suggested CPT: 92052 Subsequent Visit Detailed/High complexity 35 min I spent 37 minutes ugns-cw-sutm with the patient of which 78% was [...] negative pressure wound therapy dressing right knee [id number] Subjective: Doing ok overall. No CP/SOB. Tolerating [...] to home as t ransporting back to [place] may present the patient and family undo hardship. 6. Dressings/Drains: Pulled yesterday? 7. Dispo/Discharge: Anticipate discharge to SNF in next 1-3 days if all criteria met. 8. Follow-up: Please call the clinic to make a follow up appointment in approximately 2 wee ks with ORTHO TRAUMA & FRACTURE, . AP and lateral of R knee at that time. Elias Soriano MD [facility] Department of Orthopaedics and Rehabilitation PGY-1 Pager [phone] atel, Tanvir - 06/16/2018 8:20 AM PDT [...] three and a half hours away from [place]. At this time, we are unsur e of his ability to follow up with an OPAT clinic or if there is a provider near [place], where the patient resides. 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 This patient was staffed [facility] Dr. Villalobos, who agrees with the above assessment and plan unless otherwise documented. Tanvir Ayala, [facility] P SUBJECTIVE Interval Events: No acute events overnight S: patient reports he is feeling well this morning. States he was able to meet with a upper caser and had decided to go to [...] Dona Mercado MD Division of Hospital Medicine [facility] Pager [phone] I spent more than 35 minutes kggb-nn-celg with the patient of which greater than [...] negative pressure wound therapy dressing right knee [id number] Subjective: Doing ok overall, not too much pain in right knee. Looking forward to getting dry cans back tender to home, "My wants to [...] to home as t ransporting back to [place] may present the patient and family undo [...] time. JATIN Dent Orthopaedic Trauma Surgery Pager [phone] Stephan Aguirre MD - 06/14/2018 8:59 AM [...] Dona Mercado MD Division of Hospital Medicine [facility] Pager [phone] I spent more than 35 minutes cnfd-mk-uzwj with the patient of which greater than [...] negative pressure wound therapy dressing right knee [id number] Subjective: Pain improving in R knee. Objective: [...] at that time. SEBAS PLEITEZ MD Pager [phone] tephan Mercado M D - 06/13/2018 9:51 [...] Andrichard Mercado MD Division of Hospital Medicine [facility] Pager [phone] I spent more than 35 minutes coeo-lc-oycw with the patient of which greater than [...] negative pressure wound therapy dressing right knee [id number] Subjective: Painful in R knee today, but [...] at that time. SEBAS PLEITEZ MD Pager [phone] Stephan Aguirre M D - 06/12/2018 1:24 [...] Andrichard Mercado MD Division of Hospital Medicine [facility] Pager [phone] I spent more than 35 minutes rnjk-mm-aanl with the patient of which greater than [...] to [facility] ED from [facility] ([place], [place]). Prior to presentation patient states that [...] IV (baseline cr 1.8-2.0), has had prior [place], no CVA. For his right lower extremity [...] mild distal inferior-apical ischemia, LVEF 53%. -10/2015 [facility] with 90% ostial first diagonal, 85% ostial second diagonal, occluded stent of proximal RCA with left to right coronary collaterals, Patent SVG to LAD Ischemic Cardiomyopathy c/b Chronic Systolic Heart Failure and Diastolic Heart Failure -10/2015 [facility] with EF 45% and inferiobasal [...] po daily Carvedilol 12.5mg po daily -Y [place]-3 fatty acid 1,200mg po bid Acetaminophen-codeine po [...] the Social Hx as appropriate. 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 -would consult green meat packer for enhanced nutrition in post-operative period Non-Insulin [...] as unclear why patient was placed on penitentiary anticoagulation after prior provoked DVT. Dean Ugarte MD Clinical Hospitalist Services [facility] Pager [phone] 06/11/2018 10:44 PM [facility] DEPARTMENT: Hosp ([facility]) - [id number] Place of Service: [facility] [id number] Date of Service: 07/25/2016 [facility] [id number] Modifiers:GC Resident Involved: No Service: PRIMARY HOSPITALIST Suggested CPT: 26932 Initial Visit Comp/High Complexity 70 min I [...] Antibiotics and Frequent lab draws Procedure location: Unit:[facility] Room: 14 Providers: Attending name: Attending physically present: No PICC Nurse name: Frances Fair RN BSN VAT Assisted by Christina March RN BSN VAT Pre-Procedure Consent: written consent obtained Consent given by: Patient Patient identity confirmed per protocol: Yes Team Pause: Immediatly prior to the procedure a pause per protocol was called. A pause veri fies correct patient, procedure, equipment, clinical support tech and site/side marked as required. CLABSI Prevention [...] area Basilic vein. Cat heter lot number: [id number] with a length of 55 cm was [...] NOTEDate of Service: 08/01/2015 Attending Surgeon: Ghassan Sehrman MD Copper Flotation Operator(s): mesfin thompson MD Preoperative Diagnosis: 1. right total knee prosthetic joint infection. Postoperative Diagnosis: same Procedures Performed: 1. Right knee arthrotomy with drainage for infection and polyethylene exchange 2. Application TINO disposible negative pressure wound therapy dressing right knee [id number] Anesthesia: General endotracheal anesthesia. Implants: excahgned alisha triathalon poly size 15, 13mm EBL: 50 Complications: None Specimens: 6 cultures, 1 path Indication For Procedure: Solo Alves was transferred to [facility] for sepsis after previosuly having been treated with a right total knee. He ws medically unstable and transferred to [facility] medical service. An apsirate was positive. I [...] Patricia wrap. He was then awoken from [facility] and transported back to the [...] as it stands. Ghassan Sherman MD, MPH Sagger Filler, Dept. of Orthopaedics [address] [place] [address] [email or web address] docu mented in this encounter Consult Notes Tanvir Ayala - 06/17/2018 11:12 AM PDTFormatting of this note might be different from the o riginal. INPATIENT INFECTIOUS DISEASE PROGRESS NOTE ID TEAM: B Patient: Júnior Mas PCP: Gilma Estrada MD Author: aTnvir Ayala Date of Admission: 06/11/2018 Hospital Day: [...] treatmen t. He will be discharged to [facility] to receive inpatient therapy and OPAT. 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 at [facility]. If patient is discharged fr [...] the primary team. This patient was staffed [facility] Dr. Villalobos, who agrees with the above assessment and plan unless otherwise documented. Tanvir Ayala, [facility] P SUBJECTIVE Interval Events: No [...] 07/24/18 to be continued via OPAT at [facility] Microbiology Data: Source Date Results Tissue [...] tablet allopurinol 300 mg oral tablet antiox.mv no.11-tunz5w-fdhztue0s-jnp-rff (I-CAPS) 280-10-2 mg oral capsule carvedilol 12.5 [...] Anticoagulation Clinic/Provider: New PCP Dr. Don Estrada ([phone]) Date INR Warfarin Dose 06/17/2018 1.78 2.5 [...] make recommendations. Please page clinical ph armacist (#[phone]) or call central inpatient pharmacy ([phone]) with questions. Rashard Jacob Pharm. D. Candidate Associated attestation - Mary Wade [facility] - 06/17/2018 11:14 AM PDT--I have reviewed the note written by pharmacy intake technician Rashard Jacob and I agree with the content and his plan for warfarin on this patient. Thank you, Mary Mauro [facility]. Pager [phone] Wade Mary [facility] - 06/16/2018 1:26 PM PDTFormatting of this [...] Anticoagulation Clinic/Provider: new PCP Dr. Don Estrada ([phone]) Date INR Warfarin Dose 06/16/2018 1.51 2.5mg [...] make recommendations. Please page clinical ph armacist (#[phone]) or call central inpatient pharmacy ([phone]) with questions. Thank you for consult, Mary Wade [facility]. Pager [phone] Trish Blankenship MD - 10:46 AM PDTAssociated Order(s): IP CONSULT TO INFECTIOUS DISEASESFormatting of thi s note might be different from the original. [facility] Infectious Diseases OPAT Referral for Discharge Planning Team B: OPAT RN Jaye Young, Office: [phone], Pager: [phone] ID Diagnosis: PJI Antibiotic agent and dosing: [...] (pt has an ortho appointment 10:40 ) Public Service Representative: For all patients requiring IV antibiotic therapy, [...] and make recommendations. Please page clinical pharmacist (#[phone]) or call central inpatient pharmacy ([phone]) with questions. Subjective/Objective: Allergies: Nsaids (non-steroidal anti-inflammatory [...] by his new PCP Don Estrada MD ([phone]). The patient reports Dr Estrada wanted him [...] D. 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 This patient was staffed [facility] Dr. Villalobos, who agrees with [...] arthritis. The patient was then transferred from [place] to [facility] for fu [...] 300 mg by mouth once daily. antiox. no.86-cpeq6m-xemyghn9r-jig-knv (I-CAPS) 280-10-2 mg oral capsule Take 1 [...] (Non-Steroidal Anti-Inflammatory Drug) Renal Failure Avoid per Stress Analyst recommendations Sulfa (Sulfonamide Antibiotics) Rash Social History [...] care. Ishaan Villalobos MD Division of Infectious DiseasesDecatur, Ramon, PharmD - 06/14/2018 7:36 PM PDT [...] lab draw. - Please page clinical pharmacist (#[phone]) or call central inpatient pharmacy ([phone]) wit h questions. Subjective/Objective: Júnior Mas, a [...] CULTURE, TISSUE-PROSTHETIC JOINT INFECTION AER AND MARIELOS [[id number]] (Abnormal) KP LAB Collec dilcia: 06/12/18 1354 Lab Status: Preliminary result Specimen: Tissue from Knee - right Updated: 06/14/18 1344 CULTURE RESULT LAB Staphylococcus epidermidis (A) Ref Range: Narrative: Culture Report: Staphylococcus epidermidis Gram Stain: No squamous epithelial cells Rare polymorphonuclear cells No organisms seen Thank you, Ramon Mercado, PharmD, [facility] Clinical Pharmacist alickn, Torey Adame [...] and make recommendations. Please page clinical pharmacist (#[phone]) or call central inpatient pharmacy ([phone]) with questions. Subjective/Objective: Júnior Mas, a 78 [...] by his new PCP Don Estrada MD ([phone]). The patient reports Dr Estrada wanted him [...] you for the consult, Evgeny Akers PharmD, [facility] Pager [phone] Evgeny Robles PharmD - 06/13/2018 8:41 AM [...] on stable regimen. Please page clinical pharmacist (#[phone]) or call central inpatient pharmacy ([phone]) with q uestions. Subjective/Objective: Indication: infectious disorder of joint Therapy start date: 06/12/18 Anticipated duration: TBD Goal trough: ~15 mg/L Urine output: unavailable for most of the past 24 hours Renal function: stable , current SCr 1.66 (Baseline SCr 1.6-1.8) Actual body weight: Weight: 86.7 kg (191 lb 1.6 oz) (06/13/18 8298) Pertinent cultures/sensitivities: 06/12/18 blood and tissue cultures - in process Thank you for the consult, Evgeny Akers PharmD, [facility] Pager [phone] Harley Echols MD - 06/11/2018 7:27 PM PDT [facility] DEPARTMENT OF ORTHOPAEDICS & REHABILITATION HISTORY & PHYSICAL EXAMINATION Patient: Jnúior Mas Encounter Date: 06/11/2018 Attending Physician: Maral Leon MD HISTORY OF PRESENT ILLNESS: Júnior Mas is a 78 year old male with CHF, gout, CAD with prior IL, DMII, HTN who presents with 2 weeks of progressive right knee pain, stiffness, fevers and malaise. He had his tota l knee arthroplasty done in [address] Hurst at [facility] for advance d DJD. He's had no problems with his knee replacement until 2 weeks ago. Denies any trauma, recent infection, colonoscopy or dental procedure. He has chronic venous stasis with blister formation on the RLE. He denies any pain or complaints elsewhere. He presents as a transfer from an [facility] where there was a concern [...] management of a septic prosthetic knee. Implants: Hollister Triathlon Total Knee System 1. Size 4 [...] up appointment in approximately 2 weeks w [facility] ORTHO TRAUMA & FRACTURE, The orthopaedics consult pager is [phone], please call with questions. Harley Weaver MD Resident Department of Orthopaedics Pager [phone] [facility] [place] Department of Orthopaedics & Rehabilitation [address] Mail Code: OP31 [facility] [id number] Associated attestation - Ghassan Sherman MD - [...] SHERMAN MD [facility] [address] [id number]/[id number] [place] [address] documented in this encounter ED Notes Carla [...] (H) 0.70 - 1.30 mg/dL EGFR - YEMENI 39 (L) >60 mL/min EGFR NON -YEMENI 32 (L) >60 mL/min SODIUM, PLASMA (LAB) [...] report as now presented. Final sig nature: Rkiy Lewis MD 06/11/2018 8:30 PM Preliminary: Riky [...] total knee replacement in 2013 done in [facility]. Right k nee also became more swollen at that time, though without any warmth or redness. Pain worse with any movement and better at rest. He was evaluated by his PCP and started on coumadin for question of DVT, though RLE ultraso und was negative. Seen by Dr. René Yen (orthopedics) in [place] 06/09 with the following labs. 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 Laboratory and imaging results including ESR, CRP were reviewed and interpreted, and notabl e for the following: - significantly elevated ESR and CRP - arthrocentesis at [place] with 79,000 WBCs The patient received the following in the emergency department (including medications, inte rventions, consultations, and reassessments): - orthopedics consultation, plan for [place] tomorrow Given this, patient required admission for further care. We spoke to the [facility] ist service, who accepted patient [...] Information: Patient discharging to swing bed at [facility] in [facility]. Reviewed DC to SNF AVS with patient and family, all questions answered, reinforced fo llow up appointments per AVS. PICC line in RUE with dressing CDI at discharge. TINO dressing CDI with green light flashing at discharge. Telephone report given to FLY Vanegas at [facility] at [phone]. Transportation provided by family in [...] njury prevention even in recliner chair. (06/15/18 0985) [facility] IP NURSE HANDOFF: [...] njury prevention even in recliner chair. (06/15/18 6778) [facility] IP NURSE HANDOFF: [...] were provided to: Other vendor facility, Name: [facility] Swi ng Bed, , , [...] throughout session other than pt and therapist: clinical rehabilitation liaison Current unit: 9k Brief Hospital Course:Júnior Mas [...] with FWW: minimum assist, 15 feet with clinical rehabilitation liaison stand by assist and follow ing with wheelchair. Chair to chair transfer front wheeled walker and minimum assist Pt left up in recliner chair, call light/urinal and belongings all in reach. [facility] BASIC MOBILITY Difficulty turning over in bed [...] to do/total assistance - Total/Dependen t Assist [facility] Basic Mobility Total Score 14 Interpretation of [facility] Short Form - Basic Mobility: CMS Modifier [...] to be determined . Umm Joy, BRICE [id number] andoff - Emily Covarrubias RN - 06/16/2018 [...] njury prevention even in recliner chair. (06/15/18 7344) [facility] IP NURSE HANDOFF: [...] As evidenced by: Poor intake tonight from 5216-7112 despite encouragement. He states that his water [...] njury prevention even in recliner chair. (06/15/18 0976) [facility] IP NURSE HANDOFF: [...] throughout session other than pt and therapist: clinical rehabilitation liaison and student observer Current unit: 9k Brief [...] cell phone and water all in reach. [facility] BASIC MOBILITY Difficulty turning over in bed [...] to do/total assistance - Total/Dependen t Assist [facility] Basic Mobility Total Score 9 Interpretation of [facility] Short Form - Basic Mobility: CMS Modifier [...] Equipment recommendations: to be determined BRICE Blount [address] andoff - Maria Dolores Gurrola RN - [...] njury prevention even in recliner chair. (06/15/18 7155) [facility] IP NURSE HANDOFF: [...] at EOB finishing breakfast with family at [facility]. Recliner found and placed in room [...] nutrient distribution type or amount Nutrition Assessment: terra cotta roofer helper received. Pt does not like food here, [...] intake Following, Ivana Mendez, MS, RD, LD, [facility] Pager #: [phone] Comments: Júnior Mas is a 78 y.o. [...] 2012 Total Knee Replacement who presents to [facility] with septic a rthritis of [...] 29.04 kg/m2 AdjBW: 71.5 kg Estimated needs: 0514-5483 kcal/day (25-30 kcal/kg AdjBW); 72-107 g protein/day [...] encourage meals. Monitor UOP- no ouput from 9710-9898. [facility] notified- BMS ordered. encourage fluids. MOBILITY: 2pa [...] PM PDT Physical Therapy Evaluation and Treatment [id number] [facility] Day: 3 Date of : [...] going down ramp) Vision/Hearing: hearing aids (very EGEGIK; states he refuses hearing aids) Patient / Family Goal: patient will not state; patient : For patient to return home. Language: Portuguese. Barriers: Very EGEGIK, not fully attentive. Pain: "lots"; refuses to [...] assist after focus on m idline. PT, MEASURER and patient encourage patient to get up to a chair, with assistance, patient r efused 4 times. Outcome Measure(s): 5 Time Sit to Stand: unable. >15 seconds predicts recurrent fallers [facility] BASIC MOBILITY Difficulty turning over in bed [...] to do/total assistance - Total/Dependen t Assist [facility] Basic Mobility Total Score 9 Interpretation of [facility] Short Form - Basic Mobility: CMS Modifier [...] underestimate Ended session: Patient supine in bed. MEASURER attending to patient. ASSESSMENT: Patient presents s/p [...] Saige Rivera RN - 06/12/2018 8:36 PM [facility] (Stable For [...] information: see anesthesia record Functional Epidural: No MEDIA PLANNER / BUYER: No Respiratory: RR: 17, O2 Sat: 98 %, O2 Delivery: Nasal cannula Breath Sounds: WDL Except (SEUN - not diagnosed) TAYLOR: LLL: RUL: RLL: SEUN No Comment: none Cardiac: BP: 113/47 HR: 94 GI: Nausea/Vomiting Status: No Signs/Symptoms: Interventions: Assessment: Comments: toleratingPO : Last void: at 1900 Contact Name: Beth Contact Number: [phone] Family contacted: Yes Comment:updated family Belongings:[facility] in [facility] - Rahel Shaw RN - 06/12/2018 [...] in the provider note. Sandra Valle MD [facility] ransfer Note - Arnie Busby ANP - 06/11/2018 3:19 PM PDT Call from Dr. Eric Yen, [place] [facility] Pt with hx of CHF with [...] [facility]PITAL ED [facility] Rita Sandhu - 06/11/2018 3:19 PM PDTPt with post procedure infection, R total knee. Connected ref with ROCAEL Sanders. [facility] Rita Barker - 06/11/2018 2:09 PM PDTRef previously consulted [facility] ortho Dr. Maral Leon who [...] + + + | [facility] | [address] | [place], [place] | | | OPHELIA LOZADA OF CARE | [address] | [address] | | | TESTS | | | [...] | + + + + + | [facility] | [address] | [place] [address] | | | SERVICES, CORE | DANI [...] | | | LABORATORY | | | YEMENI | | | SERVICES, | | | [...] | + + + + + | [facility] | [address] | [place] [address] | | | SERVICES, CORE | DANI [...] DARSHANA | [address] | [place], [place] | | | OPHELIA LOZADA OF FUAD | [address] | [address] | | | TESTS | | | [...] [facility] | [address] | [place], [place] | | | KIERRA [place] OF [facility] | [address] | [address] | | | TESTS | | | | + + + + + X-RAY PORTABLE CHEST 1 VIEW (06/16/2018 4:29 PM PDT) + + | Specimen | + + | | + + + + + | Narrative | Performed At | + + + | EXAM: NV CHEST 1 VIEW HISTORY: PICC placement. Prosthetic [...] Interface - 06/16/2018 4:44 PM PDT EXAM: NV CHEST 1 | | VIEW HISTORY: PICC [...] draws Procedure location: | | | Unit:9 [facility] Room: 14 Providers: Attending name: Attending | [...] | | | correct patient, procedure, equipment, clinical support tech and site/side | | | marked as [...] | area Basilic vein. Catheter lot number: [id number] with a length of 55 | | [...] [facility] | [address] | [place], [place] | | | KIERRA POINT OF CARE | [address] | [address] | | | TESTS | | | [...] | + + + + + | [facility] | [address] [facility] | [place] [address] | | | SERVICES, CORE | DANI [...] | | | LABORATORY | | | YEMENI | | | SERVICES, | | | [...] | + + + + + | [facility] | [address] | [place] [address] | | | SERVICES, CORE | DANI [...] MARQU[facility] | [address] | [place], [place] | | | OPHELIA LOZADA OF CARE | [address] | [address] | | | TESTS | | | [...] DARSHANA | [address] | [place], [place] | | | OPHELIA LOZADA OF CARE | [address] | [address] | | | TESTS | | | [...] [facility] | [address] | [place], [place] | | | OPHELIA LOZADA OF CARE | [address] | [address] | | | TESTS | | | [...] [facility] | [address] [facility] | [place] [address] | | | SERVICES, CORE | DANI [...] | | | LABORATORY | | | YEMENI | | | SERVICES, | | | [...] + + | [facility] [facility] | [address] [facility] | [place] [address] | | | SERVICES, CORE | DANI [...] [facility] | [address] | [place] [address] | | | SERVICES, CORE | PARK [...] [facility] | [address] | [place] [address] | | | SERVICES, CORE | PARK [...] | + + + + + | [facility] | [address] [facility] | [place] [address] | | | SERVICES, CORE | [address]ARK [...] [facility] | [address] | [place] [address] | | | KAREEM FINCH | DANI [...] [facility] | [address] | [place], [place] | | | KIERRA POINT OF CARE | [facility] | [address] | | | TESTS | | | [...] | | | LABORATORY | | | YEMENI | | | SERVICES, | | | [...] is appropriate. | LABORATORY | | Page [phone] or call [phone] with questions. Thank you. GFR is | [...] + + | [facility] [employer] | [address] | [place] [address] | | | SERVICES, CORE | DANI [...] + + | [facility] | [address] [facility] | [place] [address] | | | SERVICES, KAREEM | DANI [...] is appropriate. | LABORATORY | | Page [phone] or call [phone] with questions. Thank you. | SERVICES, CORE | + + + + + + + + | Performing | Address | City/State/Zipcode | Phone Number | | Organization | | | | + + + + + | [facility] | [address] | [place] [address] | | | SERVICES, KAREEM | [address] [...] [facility] | [address] | [place], [place] | | | OPHELIA LOZADA OF CARE | [address] | [address] | | | TESTS | | | [...] DARSHANA | [address] | [place], [place] | | | [place] [facility] | [address] | [address] | | | TESTS | | | [...] [facility] | [address] [facility] | [place] [address] | | | SERVICES, CORE | DANI [...] | | | LABORATORY | | | YEMENI | | | SERVICES, | | | [...] | + + + + + | [facility] | [address] | [place] [address] | | | KAREEM FINCH | DANI [...] [facility] | [address] | [place], [place] | | | KIERRA POINT OF CARE | [address] | [address] | | | TESTS | | | [...] [facility] | [address] | [place], [place] | | | OPHELIA LOZADA OF [facility] | [address] | [address] | | | TESTS | | | [...] [facility] | [address] | [place], [place] | | | OPHELIA LOZADA OF CARE | [address] | [address] | | | TESTS | | | [...] + + | ECG | Borderline prolonged NV | | [facility] | | | [...] + + | [facility] DEPT OF | [address] | [place], [place] | | | CARDIOLOGY | [address] | [address] | | + + + + + [...] DARSHANA | [address] | [place], [place] | | | OPHELIA LOZADA OF CARE | [facility] | [address] | | | TESTS | | | [...] | + + + + + | [facility] | [address] [facility] | [place] [address] | | | SERVICES, CORE | [address] [...] | | | LABORATORY | | | YEMENI | | | SERVICES, | | | [...] + + | [facility] [employer] | [address] | [place] [address] | | | SERVICES, CORE | PARK [...] [facility] | [address] | [place] [address] | | | SERVICES, CORE | DANI [...] | | | LABORATORY | | | YEMENI | | | SERVICES, | | | [...] | + + + + + | [facility] | [address] | [place] [address] | | | SERVICES, CORE | [address] [...] [facility] | [address] | [place] [address] | | | SERVICES, | [address] [...] [facility] | [address] | [place] [address] | | | SERVICES, | [address] [...] [facility] | [address] | [place] [address] | | | KAREEM FINCH | [address] [...] [facility] | [address] | [place] [address] | | | SERVICES, | [address] [...] [facility] | [address] | [place] [address] | | | SERVICES, CORE | DANI [...] [facility] | [address] | [place], [place] | | | KIERRA POINT OF CARE | [address] | [address] | | | TESTS | | | [...] | | | LABORATORY | | | YEMENI | | | SERVICES, | | | [...] | + + + + + | [facility] | [address] | [place] [address] | | | KAREEM FINCH | DANI [...] [facility] | [address] | [place] [address] | | | SERVICES, CORE | DANI [...] [facility] | [address] | [place], [place] | | | OPHELIA LOZADA OF [facility] | [address] | [address] | | | TESTS | | | | + + + + + PROCEDURE NOTE (06/12/2018 2:57 PM PDT) + + + | Narrative | Performed At | + + + | Ghassan Sherman MD 06/17/2018 2:15 PM Date of Service: | | | 08/01/2015 Attending Surgeon: Ghassan Sherman MD | | | Copper Flotation Operator(s): mesfin thompson MD Preoperative Diagnosis: 1. 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 Postoperative Diagnosis: | | | same Procedures Performed: 1. Right knee arthrotomy with | | | drainage for infection and polyethylene exchange 2. Application | | | TINO disposible negative pressure wound therapy dressing right knee | | | [id number] Anesthesia: General endotracheal anesthesia. | | | [...] | | stands. Ghassan Sherman MD, MPH [facility], Dept. of | | | Orthopaedics [place] [address] [address] | | | Maricel [address]. [address] [place] [address] | | | [email or web address] | | + + [...] [facility] | [address] | [place], [place] | | | OPHELIA LOZADA OF CARE | [address] | [address] | | | TESTS | | | [...] [facility] | [address] | [place], [place] | | | OPHELIA LOZADA OF [facility] | [address] | [address] | | | TESTS | | | [...] - | | | | | | [place] | | + + + + + [...] Propionibacterium due to growth of other | [facility] | | organsims. Gram Stain: No squamous epithelial cells Moderate | | | polymorphonuclear cells No organisms seen | | + + + + + + + + | Performing | Address | City/State/Zipcode | Phone Number | | Organization | | | | + + + + + | [facility] | [address] | [place] [address] | | | [place] | | | [...] + | [facility] | [address] | [place] [address] | | | [place] | | | [...] + | [facility] | [address] | [place] [address] | | | [place] | | | [...] + | [facility] | [address] | [place] [address] | | | [place] | | | [...] | + + + + + | [facility] | [address] | [place] [address] | | | [place] | | | [...] | | | | | | number [phone].[id number]. Knee, | | | | | | [...] | + + + + + | [facility] | [address] | [place] [address] | | | PATHOLOGY | [address] [...] - | | | | | | [place] | | + + + + + [...] + | [facility] | [address] | [place] [address] | | | [place] | | | | + + + [...] [facility] | [address] | [place], [place] | | | OPHELIA LOZADA OF CARE | [facility] | [address] | | | TESTS | | | [...] [facility] | [address] | [place], [place] | | | OPHELIA LOZADA OF CARE | [facility] | [address] | | | TESTS | | | [...] [facility] | [address] | [place], [place] | | | KIERRA POINT OF CARE | [address] | [address] | | | TESTS | | | [...] [facility] | [address] | [place] [address] | | | SERVICES, CORE | DANI [...] [facility] | [address] | [place] [address] | | | STEF, CORE | [address] [...] Lewis MD | | Dictation initiated: Riky Leiws MD 06/11/2018 8:14 PM | |Moderate soft [...] [facility] | [address] | [place] [address] | | | SERVICES, CORE | PARK [...] | + + + + + | [facility] | [address] | [place] [address] | | | SERVICES, CORE | DANI [...] | + + + + + | [facility] | [address] | [place] [address] | | | STEF | DANI ALEXIS [...] | + + + + + | [facility] | [address] | [place] [address] | | | KAREEM FINCH | DANI [...] | | | LABORATORY | | | YEMENI | | | SERVICES, | | | [...] the MDRD equation recommended by the | [facility] | | National Kidney Disease Education Program. [...] [facility] | [address] | [place] [address] | | | SERVICES, CORE | DANI [...] 36.5 (H) | 26.0 - 36.0 | [facility] | | | | | seconds [...] | + + + + + | [facility] | [address] | [place] [address] | | | SERVICES, CORE | [address] [...] (H) | 0.90 - 1.20 INR | [facility] | | | | | | LABORATORY [...] [facility] | [address] | [place] [address] | | | SERVICES, CORE | [address] [...] [facility] | [address] | [place] [address] | | | SERVICES, CORE | [address] [...] [facility] | [address] | [place] [address] | | | SERVICES, KAREEM | [address] | | | + + + + + ED INFORMATION EXCHANGE (06/11/2018 6:04 PM PDT) + + | Specimen | + + | | + + + + + | Narrative | Performed At | + + + | [id number] This patient has registered at the [place] | [facility] | | [facility] Emergency Department For more | MEDICAL | | information visit: | TECH[employer]OLOGIES | | [email or web address] | | | 35ffec Security Events No [...] Complaint Aug | | | 2017 [facility] [place] Emergency | | | Emergency 10,800. REF Recent Inpatient Visit | | | Summary No recorded inpatient visits. E.D. Visit Count (12 mo.) | | | Facility Visits [facility] 1 Total 1 | | | [...] | | facilities for additional information. 2018 [employer] | | | Applico. - [place], [place] - | | | [email or web address] | | + + + + + | Procedure Note | + + | Service Account, Rtf Results Inbound - 06/11/2018 6:06 PM PDT Formatting of this | | note might be different from the original.DANIEL?NOTIFICATION?06/11/2018 18:04?CHACE | | JÚNIOR? patient has registered at the [facility] [place] | | [place] Emergency Department For more information visit: | | [email or web address] Security | | EventsNo recent Security Events currently on fileED Care GuidelinesThere are currently | | no ED Care Guidelines in DANIEL for this patient. Please check your facility's medical | | records system.Recent Emergency Department Visit SummaryAdmit Date Facility [facility] State | | Type Major Type Diagnoses or Chief Complaint Jun 11, 2018 [facility] | | [facility] Emergency Emergency 10,800. REF Recent Inpatient Visit | | SummaryNo recorded inpatient visits. E.D. Visit Count (12 mo.)Facility Visits [place] | | [facility] 1 Total 1 Note: Visits indicate [...] aforementioned facilities for additional information. ? 2018 [employer] | | Applico. [facility], [place] - [email or web address] | |Facility Visits | |[facility] 1 | |Total 1 | |Note: [...] facilities for additional information. | |? 2018 [employer] - [place], [place] - [email or web address] | + + + + + + + | Performing | Address | City/State/Zipcode | Phone Number | | Organization | | | | + + + + + | [facility] | [address] | [place], [place] | [phone] | | TECH[employer]OLOGIES | [address] | [address] | | + + + + + [...] g, oral, NEEDED, Starting | | | [facility] 06/11/18 at 2306, Until Wed | [...]
--- OUTSIDE RECORDS SUMMARY | ~2020-06-27 | XMS | Encounter Summary ---
Demographics + + + | Address | [address] | | | [place] [address] | + + + | Home Phone [...] Team Providers + +------+ + | Care Luggage Maker Name | Role | Phone | + +------+ + | Gilberto Estrada MD | PCP | | + +------+ + Reason for Visit + +--------+ + | Reason | Onset | Comments | | | Date | | + +--------+ + | Refill Request | 08/30/ | | | | 2019 | | + +--------+ + Encounter Details +--------+--------+ + + + | Date | Type | Department | Care Team | Description | +--------+--------+ + + + | 08/30/ | Refill | Infectious | Sukerman, Abril S, | Refill Request | | 2019 | | [facility] | MD [address] | | | | | [address] | [address] | | | | | [address] | [place], [place] | | | | | [place], rust floor | [address] | | | | | [place], [place] | [phone] | | | | | [address] | | | | | | [phone] | | | +--------+--------+ + + + [...]
--- OUTSIDE RECORDS SUMMARY | ~2020-06-27 | XMS | Encounter Summary ---
Demographics + + + | Address | [address] | | | [place] [address] | + + + | Home Phone [...] Team Providers + +------+ + | Care Administrative Aide Name | Role | Phone | + +------+ + | Erin Forrester MD | PCP | | + +------+ + Encounter Details +--------+ + + + + | Date | Type | Department | Care Team | Description | +--------+ + + + + | 02/12/ | Orders Only | [facility] | Mikal Calix MD | | | 2018 | | NEPRHOLOGY [place] | [address] | | | | | [address] | [address] [place], [place] | | | | | [address] [place], [place] | [address] | | | | | [address] | | | | | | [phone] | | | +--------+ + + + [...]
--- OUTSIDE RECORDS SUMMARY | ~2020-06-27 | XMS | Encounter Summary ---
Demographics + + + | Address | [address] | | | [place] [address] | + + + | Home Phone [...] + | Author | [facility] | | | and [place] | + + + | Organization | [facility] | | | and [...] Team Providers + +------+ + | Care Crude Unit Operator Name | Role | Phone | [...] | | | | | | | [place] | | | | | | | ESOPHAGOGAST | | | | | | | RODUODENOSCO | | | | | | | PY TRANSORAL | | | | | | | DIAGNOSTIC | | | | | | | NH EGD | | | | | | | BALLOON | | | | | | | DILATION | | | | | | | ESOPHAGUS | | | | | | | <30 MM DIAM | | | | | | | [place] | | | | | | | [...] + + | 07/31/ | Surgery | [facility] | Willow Colin MD | EGD with Dilation | | 2017 | | MED CTR [facility] INTRA OP | [address] | | | | | [address] | [address], | | | | | [place], [place] | [place] [address] | | | | | [address] | [phone] | | | | | [phone] | | | +--------+---------+ + + + [...] fluids. 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 inspection supervisor omeprazole at [place], [place]. documented in this encounter Medications at [...] Electronically signed Willow Colin MD 07/31/2017 14:06 [facility] 2:1 1 PM PDTOp Note - [...] [address] | [place] | [phone] | | [facility] | | [address] | | | - LABORATORY | | [...] Negative for Helicobacter pylori with HE stain. [facility]:caw:C2NR GROSS | | | DESCRIPTION: A. The specimen, received in formalin, labeled | | | "Chace, Shruti.," further designated "distal esophageal biopsies," consists | [...] technical and professional components were performed by [employer] | | | H?REL, [address] [place] [address] | | | (Hospice Liaison: Don Morrell D.O.; [facility]#: [id number]). | | | Diagnostician: Gavin Michaud MD [...]
--- OUTSIDE RECORDS SUMMARY | ~2020-06-27 | XMS | Encounter Summary ---
Demographics + + + | Address | [address] | | | [place] [address] | + + + | Home Phone | | + + + | Preferred Language | Unknown | + + + | Marital Status | Unknown | + + + | Jew Affiliation | PRO | + + + [...] Team Providers + +------+ + | Care Acquisition Consultant Name | Role | Phone | + +------+ + | Gilberto Estrada MD | PCP | | + +------+ + Encounter Details +--------+ + + + + | Date | Type | Department | Care Team | Description | +--------+ + + + + | 07/08/ | Documentati | Infectious | Abril Shields, | | | 2018 | on | [facility] | [address] | | | | | [address] | [address] | | | | | Loop Phys[address] | [place], [place] | | | | | [place], [facility] | [address] | | | | | [place], [place] | [phone] | | | | | [address] | | | | | | [phone] | | | +--------+ + + + [...]
--- OUTSIDE RECORDS SUMMARY | ~2020-06-27 | XMS | Encounter Summary ---
Demographics + + + | Address | [address] | | | [place] [address] | + + + | Home Phone [...] Team Providers + +------+ + | Care Half Sole Fitter Name | Role | Phone | + +------+ + PCP | Unavailable | + +------+ + Encounter Details +--------+ + + + + | Date | Type | Department | Care Team | Description | +--------+ + + + + | 05/18/ | Hospital | [facility] | Olaf Nicole | | | 1998 - | Encounter | [facility] | MD [address] | | | | | CARDIAC TRANSPLANT | [address] | | | 05/19/ | | [address] | [place] [address] | | | 2000 | | [place] | [phone] | | | | | [address] | | | | | | [phone] | | | +--------+ + + + [...]
--- OUTSIDE RECORDS SUMMARY | ~2020-06-27 | XMS | Clinical Summary ---
Demographics + + + | Address | [address] | | | [place] [address] | + + + | Home Phone [...] Author + + + | Author | [facility] | + + + | Organization | [facility] | + + + | Address | Unknown | + + + | Phone | Unavailable | + + + Support + + +---------+ + | Name | Relationship | Address | Phone | + + +---------+ + | Beth Mas | ECON | Unknown | | + + +---------+ + Care Team Providers + +------+ + | Care Mapping Technician Name | Role | Phone | + +------+ + | Gilberto Estrada MD | PCP | | + +------+ + Source Comments [facility] is fully live on both [facility] and [facility] InPatient.Pending Sale To [facility] Allergies + + + + + + | Active Allergy | Reactions | Severity | Noted | Comments | | | | | Date | | + + + + + + | Nsaids | Renal Failure | High | 06/14/20 | Avoid per | | (Non-Steroidal | | | 18 | Netezza Architect | | Anti-Inflammatory | | | | recommendations | | Drug) | | | | | + + + + + + | Sulfa (Sulfonamide | Rash | High | 06/11/20 | | | Antibiotics) | | | 18 | | + + + + + + | Sulfa (Sulfonamide | Rash | | 06/12/20 | | | Antibiotics) | | | 18 | | + + + + + + Medications + + + +---------+------+------+-------+ | Medication | Sig | Dispensed | Refills | Star | End | Statu | | | | | | t | Date | s | | | | | | Date | | | + + + +---------+------+------+-------+ | colchicine 0.6 mg | Take 0.6 mg by mouth | | 0 | | | Activ | | oral tablet | once daily as | | | | | e | | | needed (gout flare). | | | | | | | | | | | | | | + + + +---------+------+------+-------+ | cholecalciferol | Take 1,000 Units by | | 0 | | | Activ | | (Vitamin D3) 1,000 | mouth two times | | | | | e | | unit oral tablet | daily. | | | | | | + + + +---------+------+------+-------+ | folic acid 0.4 mg | Take 400 mcg by | | 0 | | | Activ | | oral tablet | mouth once daily. | | | | | e | + + + +---------+------+------+-------+ | magnesium oxide | Take 400 mg by mouth | | 0 | | | Activ | | 400 mg oral tablet | once daily. | | | | | e | + + + +---------+------+------+-------+ | | Inhale 1 puff two | | 0 | | | Activ | | fluticasone-salmeter | times daily. | | | | | e | | ol 250-50 mcg/dose | | | | | | | | inhalation blister | | | | | | | | with device | | | | | | | + + + +---------+------+------+-------+ | warfarin 2.5 mg | Take 2.5 mg by mouth | | 0 | | | Activ | | oral tablet | once daily. | | | | | e | + + + +---------+------+------+-------+ | triamcinolone | Apply to affected | | 0 | | | Activ | | acetonide 0.1 % | area three times | | | | | e | | topical cream | daily. Apply thin | | | | | | | | film to affected | | | | | | | | areas. | | | | | | + + + +---------+------+------+-------+ | antiox.mv | Take 1 capsule by | | 0 | | | Activ | | no.[id number]-[id number] | mouth once daily. | | | | | e | | (I-CAPS) 280-10-2 | | | | | | | | mg oral capsule | | | | | | | + + + +---------+------+------+-------+ | Niacinamide 500 mg | Take 1 tablet by | | 0 | | | Activ | | oral tablet | mouth two times | | | | | e | | | daily. | | | | | | + + + +---------+------+------+-------+ | | Take 1 tablet by | 30 | 0 | 08/ | | Activ | | acetaminophen-codein | mouth every six | tablet | | 11/15 | | e | | e 300-30 mg oral | hours as needed for | | | 18 | | | | tablet | severe pain. | | | | | | + + + +---------+------+------+-------+ +---+ + | | Additional | | | InformationPatient | | | taking differently: | | | 1 tablet oral TWICE | | | DAILY NEEDED, | | | severe pain, | | | Reported on | | | 08/18/2018 12:35 PM | +---+ + + + +---------+----+------+---+-------+ | senna-docusate | Take 1 tablet by | 60 | 0 | 08/2 | | Activ | | 8.6-50 mg oral | mouth two times | tablet | | 1/20 | | e | | tablet | daily. | | | 18 | | | + + +---------+----+------+---+-------+ | eplerenone 25 mg | Take 12.5 mg by | | 0 | | | Activ | | oral tablet | mouth once daily. | | | | | e | + + +---------+----+------+---+-------+ | torsemide 20 mg | Take 20 mg by mouth | | 0 | | | Activ | | oral tablet | two times daily. | | | | | e | + + +---------+----+------+---+-------+ | glipiZIDE 10 mg | Take 15 mg by mouth | | 0 | | | Activ | | oral | once daily. | | | | | e | | tabletIndications: | Indications: type 2 | | | | | | | type 2 diabetes | diabetes mellitus | | | | | | | mellitus | | | | | | | + + +---------+----+------+---+-------+ | potassium chloride | Take 20 mEq by mouth | | 0 | | | Activ | | SR 10 mEq oral | two times daily. | | | | | e | | capsule, extended | | | | | | | | release | | | | | | | + + +---------+----+------+---+-------+ | LUTEIN-ZEAXANTHIN | Take by mouth. | | 0 | | | Activ | | ORAL | | | | | | e | + + +---------+----+------+---+-------+ | cephALEXin 500 mg | Take 1 capsule by | 60 | 11 | 11/0 | | Activ | | oral | mouth two times | capsule | | 4/20 | | e | | capsuleIndications: | daily. Indications: | | | 19 | | | | bone/joint infection | bone/joint infection | | | | | | + + +---------+----+------+---+-------+ Active Problems + + + | Problem | Noted Date | + + + | Encounter for long-term (current) use of antibiotics | 06/17/2018 | + + + | Infection of prosthetic right knee joint | 06/16/2018 | + + + | Coronary artery disease involving coronary bypass graft without | 06/11/2018 | | angina pectoris | | + + + | Hypertension | 06/11/2018 | + + + | Ischemic cardiomyopathy | 06/11/2018 | + + + | Systolic heart failure | 06/11/2018 | + + + | Obstructive sleep apnea | 06/11/2018 | + + + | Atrial fibrillation | 06/11/2018 | + + + | Hyperlipidemia | 06/11/2018 | + + + | Heart block | 06/11/2018 | + + + | 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 | 06/11/2018 | | support life | | + + + | Non-insulin dependent type 2 diabetes mellitus | 06/11/2018 | + + + | Morbid obesity | 06/11/2018 | + + + | CKD (chronic kidney disease), stage III | 06/11/2018 | + + + | 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 | 06/11/2018 | + + + | Chronic anticoagulation | 06/11/2018 | + + + Resolved Problems + + + + | Problem | Noted | Resolved | | | Date | Date | + + + + | Pyogenic arthritis of right knee joint, due to unspecified | 06/12/20 | | | organism | 18 | 8 | + + + + | Pyogenic arthritis of right knee joint | 06/11/20 | | | | 18 | 8 | + + + + | Septic arthritis of knee, right | 06/11/20 | | | | 18 | 8 | + + + + Social History + [...] + + + + Plan of Treatment + + + + + | Health Maintenance | Due Date | Last | Comments | | | | Done | | + + + + + | Pneumococcal | | 07/24/20 | | | vaccination (2 of 2 | 0 | 09 | | | - PCV13) | | | | + + + + + | Influenza (Flu) | | 08/19/20 | | | vaccination (#1) | 9 | 18, | | | | | 08/07/20 | | | | | 17, | | | | | 09/10/20 | | | | | 16, | | | | | Addition | | | | | al | | | | | history | | | | | exists | | + + + + + Implants + +------+--------+ +--------+--------+--------+ | Implanted | Type | Area | Manufacture | Device | Shelf | Model | | | | | r | | Expira | / | | | | | | Identi | tion | Serial | | | | | | fier | Date | / Lot | + +------+--------+ +--------+--------+--------+ | Tibial Bearing Insert Size 5 | | Right: | MARIALUISA | | 11/26/ | [id number] | | 13mm Implanted: Qty: 1 on | | Knee | | | 2019 | -51 / | | 06/12/2018 by Sandoval Hyde | | | | | | | | MD Leanne at [facility] | | | | | | /[id number] | | LOC | | | | | | 3 | + +------+--------+ +--------+--------+--------+ Results Not on filefrom Last 3 Months Insurance + +--------+ +--------+ + +--------+ | Payer | Benefi | Subscriber | Effect | Phone | Address | Type | | | t Plan | ID | kai | | | | | | / | | Dates | | | | | | Group | | | | | | + +--------+ +--------+ + +--------+ | MEDICARE | MEDICA | [id number] | 01/26/20 | [phone] | [address] | Medica | | | RE A & | | 15-Pre | 1 | [phone] | re | | | B | | sent | | [place] | | | | | | | | [phone] | | + +--------+ +--------+ + +--------+ | COMMERCIAL GROUP | COMMER | [id number] | 10/27/19 | | | Indemn | | | CIAL | | 15-Pre | | | ity | | | GROUP | | sent | | | | + +--------+ +--------+ + +--------+ + +--------+ +--------+ + + | Guarantor Name | Accoun | Relation to | Date | Phone | Billing Address | | | t Type | Patient | of | | | | | | | | | | + +--------+ +--------+ + + | Duane Mas | Person | Self | [birth year] | [address] | | | al/Jamin | | 1940 | [phone] | [place] [address] | | | afshan | | | 4 (Home) | | + +--------+ +--------+ + + Advance Directives + + + + + | Code Status | Date | Date | Comments | | | Activated | Inactivated | | + + + + + | Full Code | 06/12/2018 | 06/17/2018 | | | | 9:31 PM | 5:23 PM | | + + + + +
--- OUTSIDE RECORDS SUMMARY | ~2020-06-27 | XMS | Encounter Summary ---
Demographics + + + | Address | [address] | | | [place] [address] | + + + | Home Phone | | + + + | Preferred Language | Unknown | + + + | Marital Status | | + + + | Yazidism Affiliation | 1077 | + + + | Race | White | + + + | Ethnic Group | Not or | + + + Author + + + | Author | [facility] | | | and [place] | + + + | Organization | [facility] | | | [...] + +------+ + | Care Public Relations Name | Role | Phone | + [...] + + | 12/08/ | Telephone | [facility] | Kristie De Los Santos ANP | Device Check | | 2020 | | CARDIOLOGY [place] | [address] | | | | | [address] | [place], [place] | | | | | [place], [place] | [address] | | | | | [address] | | | | | | [phone] | | | +--------+ + + + [...] 2019. Device: Medtronic pacemaker documented in this [facility] [place] [facility] Plan of Treatment +--------+ + + + [...]
--- OUTSIDE RECORDS SUMMARY | ~2020-06-27 | XMS | Encounter Summary ---
Demographics + + + | Address | [address] | | | [place] [address] | + + + | Home Phone [...] Team Providers + +------+ + | Care Union Organiser Name | Role | Phone | + +------+ + | Gilberto Estrada MD | PCP | | + +------+ + Encounter Details +--------+ + + + + | Date | Type | Department | Care Team | Description | +--------+ + + + + | 02/24/ | Documentati | [facility] | Unknown . | | | 2017 | on | Department | | | [...]
--- OUTSIDE RECORDS SUMMARY | ~2020-06-27 | XMS | Encounter Summary ---
Demographics + + + | Address | [address] | | | [place] [address] | + + + | Home Phone | | + + + | Preferred Language | Unknown | + + + | Marital Status | | + + + | Presybeterian Affiliation | 1077 | + + + | Race | White | + + + | Ethnic Group | Not or | + + + Author + + + | Author | [facility] | | | and [place] | + + + | Organization | [facility] | | [...] Team Providers + +------+ + | Care Poultry Pinner Name | Role | Phone | + [...] + + | 09/29/ | Telephone | [facility] | Kristie De Los Santos ANP | Patient Concerns | | 2019 | | CARDIOLOGY [place] | [address] | | | | | [address] | [place], [place] | | | | | [place], [place] | [address] | | | | | [address] | | | | | | [phone] | | | +--------+ + + + [...]
--- OUTSIDE RECORDS SUMMARY | ~2020-06-27 | XMS | Clinical Summary ---
Demographics + + + | Address | [address] | | | [place] [address] | + + + | Home Phone | | + + + | Preferred Language | Unknown | + + + | Marital Status | | + + + | Scientology Affiliation | 1077 | + + + [...] Team Providers + +------+ + | Care Academic Affairs Vice President Name | Role | Phone | + [...] + + +---------+------+------+-------+ | nystatin | nystatin [id number] | | 0 | | | Activ [...] | | + + + +---------+------+------+-------+ | Galloway-3 Fatty | Galloway 3 | | 0 | | | Activ | | Acids (OMEGA 3 PO) | | | | | | e | + + + +---------+------+------+-------+ | Galloway-3 Fatty | Take by mouth two | [...] | | + + + +---------+------+------+-------+ | Galloway-3 Fatty | Take 1,200 mg by | [...] + + + | 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 Pulse generator: ReTargeter. Model number [id number], | | serial number [id number]. Placed because of symptomatic sinus | | [...] block.2. RV | | lead: Medtronic, model #283534, serial number [id number]. RA | | lead: Medtronic, model #526886, serial number [id number]. This | | is an Medtronic MRI [...] is planning to | | go to [place] after [place]. 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 | + + Family History + [...] | | 2017 | -500 | | [id number]: Qty: 1 on | | | | | | /[id number] | | 09/07/2013 by Aris, | | | | | | 500 | | Drew Mendoza MD | | | | | | /[id number] | + +------+------+ +--------+--------+--------+ | Patella Triathlon 38mm 11mm | | | | | 04/25/ | 5551-G | | Height - [id number]: | | | | | 2017 | [...] | | 2017 | -402 | | [id number]: Qty: 1 on | | | | [...] - | | | | | | /[id number] | | [id number]: Qty: 1 on | | | | | | 001 | | 09/07/2013 by Aris, | | | | | | /[id number] | | Drew Mendoza MD | | | | | | 1 | + +------+------+ +--------+--------+--------+ | Insert Tibial Ricardo Rivers | | | | | 01/23/ | 5531-G | | 5 13mm - [id number]: | | | | | 2017 | [...] +--------+ +---------+--------+ | CIGNA | CIGNA | [id number] | 10/27/19 | [phone] | | Indemn [...] +--------+ +---------+--------+ | MEDICARE | MEDICA | [id number] | 01/26/20 | [phone] | | Medica | | | RE | | 15-Pre | 5 | | re | | | PART A | | sent | | | | | | AND B | | | | | | + +--------+ +--------+ +---------+--------+ | MEDICARE | MEDICA | [id number] | 04/26/20 | [phone] | | Medica | | | RE | | 03-Pre | 5 | | re | | | PART A | | sent | | | | | | AND B | | | | | | + +--------+ +--------+ +---------+--------+ | CIGNA | CIGNA | [id number] | 10/27/19 | [phone] | | Indemn [...] Person | Self | [birth year] | | [address] | | | al/Fam | | 1940 | [phone] | [place] [address] | | | afshan | | | 4 (Home) | | + +--------+ +--------+ + + | Duane Mas | Person | Self | [birth year] | | [address] | | | al/Fam | | 1940 | [phone] | [place] [address] | | | afshan | | | 4 (Home) | | + +--------+ +--------+ + + Advance Directives + + + + + | Type | Date Recorded | Patient | Explanation | | | | Drone Pilot | | + + + + + | Power of | | | | | Ranger Aide | | | | + + + + + | Advance | 07/31/2017 10:59 | | | | Directive | AM | | | + + + + +
--- OUTSIDE RECORDS SUMMARY | ~2020-06-27 | XMS | Encounter Summary ---
Demographics + + + | Address | [address] | | | [place] [address] | + + + | Home Phone [...] Team Providers + +------+ + | Care Cottage Parent Name | Role | Phone | + [...] | | | | [address] | [place], [place] | chronicity (Primary | | | | [address] | [address] | Dx); Infection | | | | [place], [place] | [phone] | associated with | | | | [address] | | internal right knee | | | | [phone] | | prosthesis, | | | | [...] Ghassan Sherman MD - 07/14/2018 1:25 PM [facility] 06/12/18 Right TKA [...] tknee ap/laterall GHASSAN SHERMAN MD [facility] [place] [address] [facility] [address] [place] [address] No orders of the defined [...]
--- OUTSIDE RECORDS SUMMARY | ~2020-06-27 | XMS | Encounter Summary ---
Demographics + + + | Address | [address] | | | [place] [address] | + + + | Home Phone [...] Author + + + | Author | [facility] | + + + | Organization | [facility] | + + + | Address | Unknown | + + + | Phone | Unavailable | + + + Support + + +---------+ + | Name | Relationship | Address | Phone | + + +---------+ + | Beth Mas | E[place] | Unknown | | + + +---------+ + Care Team Providers + +------+ + | Care Guest Services Attendant Name | Role | Phone | + +------+ + | Gilberto Estrada MD | PCP | | + +------+ + Encounter Details +--------+ + + + + | Date | Type | Department | Care Team | Description | +--------+ + + + + | 07/14/ | Hospital | Radiology/Imaging | Sandoval Hyde, | | | 2017 | Encounter | at [facility] | [address] | | | | | [address] | [place], [place] | | | | | [facility] [address] | [address] | | | | | [place], [place] | [phone] | | | | | [address] | | | | | | [phone] | | | +--------+ + + + [...] | | 0 | | | | [id number] | mouth once daily. | | | [...]
--- OUTSIDE RECORDS SUMMARY | ~2020-06-27 | XMS | Encounter Summary ---
Demographics + + + | Address | [address] | | | [place] [address] | + + + | Home Phone [...] Providers + +------+ + | Care Poultry Farm Laborer Name | Role | Phone | + +------+ + PCP | Unavailable | + +------+ + Encounter Details +--------+ + + + + | Date | Type | Department | Care Team | Description | +--------+ + + + + | 09/29/ | Hospital | [facility] | Zeb Giang | | | 2000 - | Encounter | [facility] | [address] [place] | | | | | CARDIAC TELEMETRY | [address] [place], [place] | | | 10/04/ | | [address] | [address] | | | 2000 | | [place] | | | | | | [address] | | | | | | [phone] | | | +--------+ + + + [...]
--- OUTSIDE RECORDS SUMMARY | ~2020-06-27 | XMS | Encounter Summary ---
Demographics + + + | Address | [address] | | | [place] [address] | + + + | Home Phone [...] + + + | Author | [facility] | | | and [place] | + + + | Organization | [facility] | | | and [...] Providers + +------+ + | Care Rn Coronary Care Unit Name | Role | Phone | + +------+ + PCP | Unavailable | + +------+ + Encounter Details +--------+ + + + + | Date | Type | Department | Care Team | Description | +--------+ + + + + | 09/03/ | Hospital | [facility] | Conversion | | | 2012 | Encounter | [facility] | Transaction, | | | | | CLINIC [address] | Provider Unknown | | | | | [place], [place] | | | | | | [address] | (Fax) | | | | | [phone] | | | +--------+ + + + [...] 09/03/131419 Date of Service: 09/03/131419 Status: Signed Cantilever Crane Operator: Manasa Andrade RN (Registered Nurse) Uses abimael [...] EXTERNAL LAB | | Testing performed at [facility];[address] [place] [address];[place] [address] MRSA PCR | | | NEGATIVE Testing performed at | | | [facility];[address] [place] [address];[place] [address] | | + + + + +---------+ + + | Performing | Address | City/State/Zipcode | Phone Number | | Organization | | | | + +---------+ + + | EXTERNAL LAB | | | | + +---------+ + + documented in this encounter Visit Diagnoses Not on filedocumented in this encounter"
--- OUTSIDE RECORDS SUMMARY | ~2020-06-27 | XMS | Encounter Summary ---
Demographics + + + | Address | [address] | | | [place] [address] | + + + | Home Phone [...] + + + | Author | [facility] | + + + | Organization | [facility] | + + + | Address | Unknown | + + + | Phone | Unavailable | + + + Support + + +---------+ + | Name | Relationship | Address | Phone | + + +---------+ + | Beth Mas | [place] | Unknown | | + + +---------+ + Care Team Providers + +------+ + | Care Credit And Collections Representative Name | Role | Phone | [...] [id number] | | | | | | [facility] | | | | | | and Healing, | | | | | | Building [address]th | | | | | | Floor [place], [place] | | | | | | [address] | | | | | | [phone] | | | +--------+ + + + [...] Dear | | | | | | [place]: [place] | | | | | | [...] [address] | [place] [address] | | | DERMATOPATHOLOGY | [address] | | | + + + + + | [facility] | Mailcode [address] | [place] [address] | | | DERMATOPATHOLOGY | [address] | | | + + + + + documented in this encounter Visit Diagnoses Not on filedocumented in this encounter"
--- OUTSIDE RECORDS SUMMARY | ~2020-06-27 | XMS | Encounter Summary ---
Demographics + + + | Address | [address] | | | [place] [address] | + + + | Home Phone [...] Providers + +------+ + | Care Technology Teacher Name | Role | Phone | + +------+ + PCP | Unavailable | + +------+ + Encounter Details +--------+ + + + + | Date | Type | Department | Care Team | Description | +--------+ + + + + | 05/02/ | [facility] | Olaf Nicole | | | 1998 - | Encounter | [facility]ART MED CTR | MD [address] | | | | | CARDIAC TRANSPLANT | [address] | | | 05/03/ | | [address] | [place] [address] | | | 1998 | | [place] | [phone] | | | | | [address] | | | | | | [phone] | | | +--------+ + + + [...]
--- OUTSIDE RECORDS SUMMARY | ~2020-06-27 | XMS | Encounter Summary ---
Demographics + + + | Address | [address] | | | [place] [address] | + + + | Home Phone | | + + + | Preferred Language | Unknown | + + + | Marital Status | Unknown | + + + | Oriental Orthodox Affiliation | PRO | + + [...] Team Providers + +------+ + | Care Cardboard Inserter Name | Role | Phone | + [...] 2017 | | [facility] | [address] | | | | | [address] | [address] | | | | | Loop Physician's | [place], [place] | | | | | [place], [facility] floor | [address] | | | | | [place], [place] | [phone] | | | | | [address] | | | | | | [phone] | | | +--------+ + + + [...] PSTDr. Dimitri Sidhu, pt's de ntist in [place], called stating pt is having burning sensation in his mouth. Dr. Sidhu i nquired about which medication should be presciribd that won't interfere with Keflex. He can be reached at: [phone] Idiodxqoxzcrix signed by Layne Huang at 10/07/2018 5:01 PM PSTdocumented in this encounter Plan of Treatment Not on filedocumented as of this encounter Visit Diagnoses Not on filedocumented in this encounter"
--- OUTSIDE RECORDS SUMMARY | ~2020-06-27 | XMS | Encounter Summary ---
Demographics + + + | Address | [address] | | | [place] [address] | + + + | Home Phone [...] + + + | Author | [facility] | | | and [place] | + + + | Organization | [facility] | | [...] Team Providers + +------+ + | Care Wax Pattern Repairer Name | Role | Phone | + +------+ + | Erin Forrester MD | PCP | | + +------+ + Encounter Details +--------+ + + + + | Date | Type | Department | Care Team | Description | +--------+ + + + + | 09/12/ | Orders Only | [facility] | Robel Ricci | | | 2015 | | CARDIOLOGY [place] | MD [address] | | | | | [address] | [address] | | | | | [address] | [place] [address] | | | | | [address] | [phone] | | | | | [phone] | | | +--------+ + + + [...] | | | | | by [facility] [place] Read Only, | | | | | | [facility] Kiran (502), | | | | | | staff editor Demetri Norton | | | | | | (253) on 10/08/2016 | | | | | | 8:28:04 AM | | | | + + + + + + + + | Specimen | + + | | + + + + + | Narrative | Performed At | + + + | Historically converted procedure from [facility] environment | EXTERNAL LAB | [...]
--- OUTSIDE RECORDS SUMMARY | ~2020-06-27 | XMS | Encounter Summary ---
Demographics + + + | Address | [address] | | | [place] [address] | + + + | Home Phone [...] Author + + + | Author | [facility] | + + + | Organization | [facility] | + + + | Address | Unknown | + + + | Phone | Unavailable | + + + Support + + +---------+ + | Name | Relationship | Address | Phone | + + +---------+ + | Beth Mas | ECON | Unknown | | + + +---------+ + Care Team Providers + +------+ + | Care Veterinary Radiologist Name | Role | Phone | + [...] [address]ADMINI Jerome | | | | | [address] | [address] | | | | | Loop Physician's | [place], [place] | | | | | [place], [facility] floor | [address] | | | | | [place], [place] | [phone] | | | | | [address] | | | | | | [phone] | | | +--------+ + + + [...]
--- OUTSIDE RECORDS SUMMARY | ~2020-06-27 | XMS | Encounter Summary ---
Demographics + + + | Address | [address] | | | [place] [address] | + + + | Home Phone | | + + + | Preferred Language | Unknown | + + + | Marital Status | Unknown | + + + | Zoroastrianism Affiliation | PRO | + + + [...] Providers + +------+ + | Care Insurance Auditor Name | Role | Phone | [...] | | | | and | | [address] | | | | | inflammatory | | [address] | | | | | reaction | | Rd [place], | | | | | due to | | [place] | | | | | internal | | [address] | | | | | right knee | | Phone: | | | | | prosthesis, | | [phone] | | | | | initial | | Fax: | | | | | encounter | | [phone] | +--------+--------+ + + + + Encounter [...] | | | [address] | [facility] | joint, subsequent | | | | Loop Physician's | [place], [place] | encounter (Primary | | | | [place], 3rd floor | [address] | Dx); detention | | | | [place], [place] | [phone] | (current) use of | | | | [address] | | antibiotics | | | | [phone] | | | +--------+---------+ + + + [...] ), Disp: 30 tablet, Rfl: 0 antiox. no.26-qsrc5g-hnppgwu2r-nvv-thv (I-CAPS) 280-10-2 mg oral capsule, Take 1 [...] Pt has no other follow-up needed at [facility] at this time so will contact his PCP to see if continued prescribing of cephalexin can be managed locally Abril Shields MD Infectious Diseases documented in this encounter Plan of Treatment Not on filedocumented as of this encounter Visit Diagnoses + + | Diagnosis | + + | Infection of prosthetic knee joint, subsequent encounter - Primary | + + | detention (current) use of antibiotics | + + documented in this encounter"
--- OUTSIDE RECORDS SUMMARY | ~2020-06-27 | XMS | Encounter Summary ---
Demographics + + + | Address | [address] | | | [place] [address] | + + + | Home Phone [...] Team Providers + +------+ + | Care Bleach Boiler Puller Name | Role | Phone | + [...] PADMINI Jerome | | | | | [address] | [address] | | | | | Loop Physician's | [place], [place] | | | | | [place], [facility] floor | [address] | | | | | [place], [place] | [phone] | | | | | [address] | | | | | | [phone] | | | +--------+ + + + [...]
--- OUTSIDE RECORDS SUMMARY | ~2020-06-27 | XMS | Encounter Summary ---
Demographics + + + | Address | [address] | | | [place] [address] | + + + | Home Phone [...] + + + | Author | [facility] | + + + | Organization | [facility] | + + + | Address | Unknown | + + + | Phone | Unavailable | + + + Support + + +---------+ + | Name | Relationship | Address | Phone | + + +---------+ + | Beth Mas | ECON | Unknown | | + + +---------+ + Care Team Providers + +------+ + | Care Forestry Fire Aid Name | Role | Phone | + [...] | | | | and | | [address] | | | | | inflammatory | | [address] | | | | | reaction | | Rd [place], | | | | | due to | | [place] | | | | | internal | | [address] | | | | | right knee | | Phone: | | | | | prosthesis, | | [phone] | | | | | initial | | Fax: | | | | | encounter | | [phone] | +--------+--------+ + + + + Encounter [...] | | | | Loop Physician's | [facility] [place] | subsequent encounter | | | | [place], 3rd floor | [address] | (Primary Dx); Long | | | | [place], [place] | [phone] | term (current) use | | | | [address] | | of antibiotics | | | | [phone] | | | +--------+---------+ + + + [...] he was briefly hospitalized since discharge from [facility] for ALVINO. Cr now back at [...] mouth once daily., Disp: , Rfl: antiox. no.89-phyj3s-uypabap8r-dov-duq (I-CAPS) 280-10-2 mg oral capsule, Take 1 [...] three times daily., Disp: , Rfl: omega 0-dwm-aul-fish oil (FISH OIL) 100-160-1,000 mg oral capsule, [...] prn Abril Shields MD Infectious Diseases [phone] documented in this encounter Plan of Treatment Not on filedocumented as of this encounter Visit Diagnoses + + | Diagnosis | + + | Infection associated with internal right knee prosthesis, subsequent encounter - | | Primary | + + | termite renewal inspector (current) use of antibiotics | + + documented in this encounter"
--- OUTSIDE RECORDS SUMMARY | ~2020-06-27 | XMS | Encounter Summary ---
Demographics + + + | Address | [address] | | | [place] [address] | + + + | Home Phone [...] Providers + +------+ + | Care Information Services Consultant Name | Role | Phone | [...] Provider Unknown | | | | | [place] | | | | | | [address] | (Fax) | | | | | [phone] | | | +--------+ + + + [...]
--- OUTSIDE RECORDS SUMMARY | ~2020-06-27 | XMS | Encounter Summary ---
Demographics + + + | Address | [address] | | | [place] [address] | + + + | Home Phone [...] Team Providers + +------+ + | Care Dipper Clock And Watch Hands Name | Role | Phone | + [...] | | | [address] | [facility] | | | | | Loop Physician's | [place], [place] | | | | | [place], [address] [place] [address] | [address] | | | | | [place], [place] | [phone] | | | | | [address] | | | | | | [phone] | | | +--------+ + + + [...] received orders. Confirmed with RN KARLA at [facility] that they will pull patient's [...]
--- OUTSIDE RECORDS SUMMARY | ~2020-06-27 | XMS | Encounter Summary ---
Demographics + + + | Address | [address] | | | [place] [address] | + + + | Home Phone | | + + + | Preferred Language | Unknown | + + + | Marital Status | Unknown | + + + | Episcopalian Affiliation | PRO | + + + [...] Providers + +------+ + | Care Rn Discharge Name | Role | Phone | + +------+ + | Gilberto Estrada MD | PCP | | + +------+ + Reason for Visit + +--------+ + | Reason | Onset | Comments | | | Date | | + +--------+ + | RN Care Management | 07/09/ | Resumed care at home post DC from [facility] | | | 2017 | | + [...] at | | | | [address] [facility] [address] | [facility] | home post DC from | | | | Loop Physician's | [place], [place] | [facility]); | | | | [place], 3rd floor | [address] | Infectious disease | | | | [place], [place] | [phone] | | | | | [address] | | | | | | [phone] | | | +--------+ + + + [...] RN - 07/09/2018 2:39 PM Luca, from [facility] , called to inform us that the patient was DC'd from [facility] yesterday and is back on service [...]
--- OUTSIDE RECORDS SUMMARY | ~2020-06-27 | XMS | Encounter Summary ---
Demographics + + + | Address | [address] | | | [place] [address] | + + + | Home Phone | | + + + | Preferred Language | Unknown | + + + | Marital Status | | + + + | Episcopal Affiliation | 1077 | + + + | Race | White | + + + | Ethnic Group | Not or | + + + Author + + + | Author | [facility] | | | and [place] | + + + | Organization | [facility] | | | and [...] Team Providers + +------+ + | Care Water Service Dispatcher Name | Role | Phone | + [...] | | | | | [address] | [address] | | | | | [place] | [place] [address] | | | | | [address] | [phone] | | | | | [phone] | | | +--------+ + + + [...] EVALUATION Duane Mas 78 y.o. male 1940 [id number] Procedure(s): EGD DIL (N/A Mouth) Medical,anesthesia, drug, allergy histories reviewed, NPO status verified. ECG reviewed. Labs reviewed. (+) perioperative beta-afua/statin given/taken. . Review of Systems / Med History Anesthesia History EGD in 2017 - did well with TIVA. Cardiovascular (+) orthopnea, pacemaker (Medtronic) (+) Dysrhythmias: (+) hypertension, (+) coronary fior ry disease (s/p PTCA and CABG) of [place] artery. (+) congestive heart failure. . Pulmonary [...]
--- OUTSIDE RECORDS SUMMARY | ~2020-06-27 | XMS | Encounter Summary ---
Demographics + + + | Address | [address] | | | [place] [address] | + + + | Home Phone [...] Team Providers + +------+ + | Care Green Chain Puller Name | Role | Phone | [...] ALEX [facility]Y | | | | | [facility] | [place] [address] | | | | | [address] | [phone] | | | | | [phone] | | | +--------+ + + + [...] m/s LVOT VTI: 19.68 cm MV A Tarmaine: 0.83 m/s MV DecT: | | | [...] TR Vmax: | | | 2.03 m/s Gate Agent: CAROLYN Authenticated by: López Rothman | | [...] cmLVIDd: 5.53 cmLVPWd: 0.81 cmLVOT Area: 3.93 [id number] Diam: 2.23 | | cm%FS: 24.16 %EF(Teich): 47.55 %ESV(Teich): 78.38 mlLVIDs: 4.19 cmSV(Teich): | | 71.06 mlRVIDd: 3.43 cmLVEF MOD A2C: 47.07 %SV MOD A2C: 71.24 mlLVEDV MOD A2C: | | 151.33 mlLVLd A2C: 8.47 cmLVEDV MOD A4C: 149.39 mlLVLd A4C: 8.40 cmLVESV MOD A2C: | | 80.08 mlLVLs A2C: 6.93 cmLAESV(A-L): 51.54 mlLAESV Index (A-L): 24.66 ml/m2LAAs | | A2C: 14.93 ul2AQBMV A-L A2C: 40.51 mlLALs A2C: 4.67 cmLAAs A4C: 18.74 [id number] | | A-L A4C: 64.72 mlLALs A4C: 4.60 cmRAAs: 18.61 [id number] A-L: 72.61 mlRAESV MOD: | | 64.47 mlRALs: 4.04 cmTAPSE: 1.97 cmAV maxP.48 mmHgAV meanP.71 mmHgAV | | Vmax: 1.27 m/Nikita Vmean: 0.91 m/Nikita VTI: 27.28 cmAVA Vmax: 2.66 cm2AVA (VTI): | | 2.84 [id number] Vmax: 0.00 cm2/m2AVAI (VTI): 0.00 cm2/m2LVOT maxP.96 mmHgLVOT | | meanP.79 mmHgLVSI Dopp: 37.08 ml/m2LVSV Dopp: 77.51 mlLVOT Vmax: 0.86 | | m/sLVOT Vmean: 0.64 m/sLVOT VTI: 19.68 cmMV A Tramaine: 0.83 m/sMV DecT: 148.14 msMV | | E Tramaine: 0.67 m/sMV E/A Ratio: 0.81MV PHT: 42.96 msMVA By PHT: 5.12 yr7Ajbtfr e': | | 0.05 m/sSeptal E/e': 11.72Lateral e': 0.10 m/sLateral E/e': 6.21RAP: 5 | | mmHgRVSP: 21.63 mmHgTR maxP.63 mmHgTR Vmax: 2.03 m/s Gate Agent: | | DBSAuthenticated by: López [facility] Date/Time: 08-07-2017 17:18:39 IMPRESSION: | [...] |TR Vmax: 2.03 m/s | | | |Gate Agent: DBS | |Authenticated by: López Rothman | [...]
--- OUTSIDE RECORDS SUMMARY | ~2020-06-27 | XMS | Encounter Summary ---
Demographics + + + | Address | [address] | | | [place] [address] | + + + | Home Phone [...] Team Providers + +------+ + | Care Division Chief Name | Role | Phone | + [...] | | | | | | | MS | | | | | | | ESOPHAGOGAST | | | | | | | RODUODENOSCO | | | | | | | PY TRANSORAL | | | | | | | DIAGNOSTIC | | | | | | | MS EGD | | | | | | | TRANSORAL | | | | | | | BIOPSY | | | | | | | SINGLE/MULTI | | | | | | | PLE MS EGD | | | | | | | BALLOON | | | | | | | DILATION | | | | | | | ESOPHAGUS | | | | | | | <30 MM DIAM | | | | | | | MS | | | | | | | [...] | | | | | [address] | [address] [place] | | | | | [place] | [address] | | | | | [address] | [phone] | | | | | [phone] | | | +--------+ + + + [...] explained and consent obtained. Patient transported to [facility], | | | 7 | | Monitors [...] 02/10/19 1400 by | | eral | tgsw-wev-ytcqur catheter system; | Neyda Johnson RN | [...] Duane L [place] 78 y.o. male 1940 [id number] Procedure(s) EGD WITH DILITATION (N/A Mouth) Cooperates? [...] signed by Thang Sarmiento MD 02/10/2019 14:13 [facility] nesthesia Preprocedure Evaluation - Thang Sarmiento MD - 2018 7:36 AM PDT ANESTHESIA PREANESTHESIA EVALUATION Duane Mas 78 y.o. 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 (+) congestive heart failure. . Pulmonary [...] situ - MEDTRONIC Class I, BMI 30-34.9 penitentiary current use of anticoagulant - COUMADIN Beta Blockers - Daily Use Diabetes mellitus, type II - ORAL Control Tznfv-kj-Zpuqrn lying flat DAIJA II Inhibitors - Daily Use Chronic renal insufficiency, stage 4 (severe) . Electronically Signed by: Thang Sarmiento MD ESi date/time: 02/10/2019 7:36 [facility] Miscellaneous Notes Addendum Note - Thang Sarmiento MD - 02/10/2019 2:50 PM PDTFormatting of this note mi ght be different from the original. Addendum created 02/10/19 2560 by Thang Sarmiento MD SmartForm saved documented [...]
--- OUTSIDE RECORDS SUMMARY | ~2020-06-27 | XMS | Encounter Summary ---
Demographics + + + | Address | [address] | | | [place] [address] | + + + | Home Phone [...] Team Providers + +------+ + | Care Vacuum Evaporation Operator Name | Role | Phone | [...] | | | | | [place], | | | | | | [place] [address] | | | +--------+--------+ + + + [...]
--- OUTSIDE RECORDS SUMMARY | ~2020-06-27 | XMS | Encounter Summary ---
Demographics + + + | Address | [address] | | | [place] [address] | + + + | Home Phone [...] + + + | Author | [facility] | | | and [place] | + + + | Organization | [facility] | | | [...] Providers + +------+ + | Care Director Index Name | Role | Phone | + +------+ + | Erin Forrester MD | PCP | | + +------+ + Encounter Details +--------+ + + + + | Date | Type | Department | Care Team | Description | +--------+ + + + + | 10/09/ | Orders Only | [facility] | Robel Ricci | | | 2014 | | CARDIOLOGY AARON | [address] | | | | | [place] [address] | [address] | | | | | [place] [address] | [place] [address] | | | | | [address] | [phone] | | | | | [phone] | | | +--------+ + + + [...] | with evidence of 1-49% stenosis. Right CLINICAL BIOSTATISTICIAN: The right common femoral | | | [...] patent with evidence of 1-49% stenosis. Left CLINICAL BIOSTATISTICIAN: | | | The left common femoral [...] GOPAL PS: 82.62 cm/s | | | CLINICAL BIOSTATISTICIAN AC: 28 deg CLINICAL BIOSTATISTICIAN AC: 39 deg CLINICAL BIOSTATISTICIAN PS: 82.56 cm/s CLINICAL BIOSTATISTICIAN PS: | | | 91.14 cm/s NADIYA [...] | | cm/s Pop PS: 66.08 cm/s DIRECTOR OF HOME HEALTH SERVICES AC: 60 deg DIRECTOR OF HOME HEALTH SERVICES AC: 54 deg | | | DIRECTOR OF HOME HEALTH SERVICES PS: 104.11 cm/s DIRECTOR OF HOME HEALTH SERVICES PS: 70.22 cm/s SFA AC: 60 deg [...] AO | | | mid-dist: 1.83 cm Director Of Religious Activities: MANDEEP Authenticated by: | | | Betina Falk MD Report Date/Time: -- | | | [id number] | | + + + + + [...] with evidence of 1-49% | | stenosis.Right CLINICAL BIOSTATISTICIAN: The right common femoral artery is patent [...] patent with evidence of 1-49% stenosis. Left CLINICAL BIOSTATISTICIAN: The | | left common femoral artery [...] | | 0.92 cmAO mid-dist: 1.83 cm Director Of Religious Activities: FEMIuthenticated by: Betina Falk | | MDReport Date/Time: -- [id number] IMPRESSION: 1. This was a technically | [...] medial calcification of the trifurcation vessels. | |CLINICAL BIOSTATISTICIAN AC: 39 deg | |CLINICAL BIOSTATISTICIAN PS: 82.56 cm/s | |CLINICAL BIOSTATISTICIAN PS: 91.14 cm/s | |NADIYA AC: 60 [...] cm/s | |Pop PS: 66.08 cm/s | |DIRECTOR OF HOME HEALTH SERVICES AC: 60 deg | |DIRECTOR OF HOME HEALTH SERVICES AC: 54 deg | |DIRECTOR OF HOME HEALTH SERVICES PS: 104.11 cm/s | |DIRECTOR OF HOME HEALTH SERVICES PS: 70.22 cm/s | |SFA AC: 60 [...] |AO mid-dist: 1.83 cm | | | |Director Of Religious Activities: MANDEEP | |Authenticated by: Betina Falk MD | |Report Date/Time: -- [id number]:26 | | | |IMPRESSION: | |1. This [...]
--- OUTSIDE RECORDS SUMMARY | ~2020-06-27 | XMS | Encounter Summary ---
Demographics + + + | Address | [address] | | | [place] [address] | + + + | Home Phone [...] Providers + +------+ + | Care Metal Sheet Roller Operator Name | Role | Phone | [...] | | | | Loop Physician's | [place], [place] | | | | | [place], [facility] floor | [address] | | | | | [place], [place] | [phone] | | | | | [address] | | | | | | [phone] | | | +--------+ + + + [...] [place], FLY - 06/30/2018 2:09 PM [facility] was informed that the patient left their facility on 06/26/18 because he met h is PT needs. We were not notified. Pt is now under the care of [facility] P [phone] F [phone] and [facility] P [phone] F [phone]. I called and spoke to Joslyn at [facility]. She stated that the patient had his PICC dress ing changed today but that they have not drawn labs as they do not have orders yet. She also said that [facility] is providing the IV cefazolin. I called [facility] and spoke to Jaquelin, who said that this patient is not on service with them. She recommended calling the [facility] office in [place]. I called and spoke to Rosalind, pharmacist at [place] office who confirmed that they have the p atient on their service. Abx/PMSO have been faxed to both [facility] and [facility]. Jaye [place] RN elephone Encounter - [...]
--- OUTSIDE RECORDS SUMMARY | ~2020-06-27 | XMS | Encounter Summary ---
Demographics + + + | Address | [address] | | | [place] [address] | + + + | Home Phone [...] Providers + +------+ + | Care Control Systems Engineer Name | Role | Phone | [...] | | | [address] | [facility] [address] | orders) | | | | Loop Physician's | [place], [place] | | | | | [place], [facility] floor | [address] | | | | | [place], [place] | [phone] | | | | | [address] | | | | | | [phone] | | | +--------+ + + + [...]
--- OUTSIDE RECORDS SUMMARY | ~2020-06-27 | XMS | Encounter Summary ---
Demographics + + + | Address | [address] | | | [place] [address] | + + + | Home Phone | | + + + | Preferred Language | Unknown | + + + | Marital Status | | + + + | Orthodoxy Affiliation | 1077 | + + + [...] Team Providers + +------+ + | Care Plating Operator Name | Role | Phone | [...] | | | | | | | [place] | | | | | | | ESOPHAGOGAST | | | | | | | RODUODENOSCO | | | | | | | PY TRANSORAL | | | | | | | DIAGNOSTIC | | | | | | | [place] EGD | | | | | | | TRANSORAL | | | | | | | BIOPSY | | | | | | | SINGLE/MULTI | | | | | | | PLE [place] EGD | | | | | | | BALLOON | | | | | | | DILATION | | | | | | | ESOPHAGUS | | | | | | | <30 MM DIAM | | | | | | | [place] | | | | | | | [...] + + | 02/10/ | Hospital | [facility] | Willow Colin MD | | | 2019 | Encounter | [facility] | [address] | | | | | [address] | [address] [place], | | | | | [place] | [place] [address] | | | | | [address] | [phone] | | | | | [phone] | | | +--------+ + + + [...] You can't be awakened Date Last Reviewed: 08/13/201619998493-9364 [employer]. [address] [place] [address]. All righ ts reserved. This information is [...] occurs when acid from your stomach flows shaed k up into the esophagus. Stomach acid [...] you take. This includes prescription medicines, o iin-wbc-sbuvksg medicines, herbs, vitamins, and other supplements. Be [...] icine to relax you. The procedure takes zsptm23fwvxecn. It does not cause trouble breath ing. [...] Black, tarry, or bloodystools Date Last Reviewed: 04/26/201619996533-0220 [employer]. [address] [place] [address], [place] [address]. All righ ts reserved. This information is [...] prescription medicines Herbs, vitamins, and other supplements Yqun-muz-iahhdmp medicines such as aspirin or ibuprofen Street [...] heart or lung disease Date Last Reviewed: 05/27/201719991672-1131 [employer]. [address] [place] [address]. All righ ts reserved. This information is [...] by: Willow Colin MD, 02/10/2019 13:00 [facility]ronically signed by Willow Colin MD at [...] + + + | [address] | [address] [place] [address] [place] | [place] [address] | [phone] | | [facility] | | | [...] + | [facility] | [address] | [place] | [phone] | | [facility] | | [address] | | | - LABORATORY | | [...] performed by [facility] | | | [facility]ostics, [address] [place] [address] | | | (Web Software Engineer: Don Morrell D.O.; IA#: [id number]). | | | Diagnostician: Gely Cerna MD [...]
--- OUTSIDE RECORDS SUMMARY | ~2020-06-27 | XMS | Encounter Summary ---
Demographics + + + | Address | [address] | | | [place] [address] | + + + | Home Phone | | + + + | Preferred Language | Unknown | + + + | Marital Status | | + + + | Adventism Affiliation | 1077 | + + + [...] Providers + +------+ + | Care Top Knitter Name | Role | Phone | + +------+ + PCP | Unavailable | + +------+ + Encounter Details +--------+ + + + + | Date | Type | Department | Care Team | Description | +--------+ + + + + | 09/07/ | Hospital | [facility] | Drew Hurst | | | 2012 - | Encounter | [facility] [address] | [address] | | | | | [address] | [address] | | | 09/09/ | [facility] | [address] [address] | | | 2012 | | [address] | [phone] | | | | | [phone] | | | +--------+ + + + [...] Summaries by Drew Hurst MD at 09/09/13 1709 Author: Drew Hurst MD Service: Orthopedic Surgery Author Type: Physician Filed: 09/09/13 0941 Date of Service: 09/09/13 0939 Status: Signed Mobile Phlebotomist: Drew Hurst MD (Physician) Located Within [facility] Service: Orthopedic Surgery Discharge Summary [...] - TOTAL; Surgeon: Drew Hurst MD; Location: [facility] MAIN OR; Servic e: Orthopedics; Laterality: [...] up: 7-10 days with Drew Hurst MD (learning support assistant Alison Tompkins) [facility] [address] [place] [address] . 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 All discharge instructions to includ e medications and appointments reviewed with patient and his . Prescriptions given to wi fe. PIV removed, catheter intact, bandage applied. All questions answered. onver zoe Transaction, Provider Unknown - 09/09/2013 11:37 AM PST Case Management by Rita Borja RN at 09/09/13 648 Author: Rita Borja RN Service: (none) Author Type: Registered Nurse Filed: 09/09/13 1138 Date of Service: 09/09/131136 Status: Signed Mobile Phlebotomist: Rita Borja RN (Registered Nurse) HEMANT Iqbal [...] Date of Service: 09/09/13 1032 Status: Signed Mobile Phlebotomist: Marta Lopez RN (Registered Nurse) CHF education completed with patient and his , packet given to patient. All questions a nswered onver zoe Transaction, Provider Unknown - 09/09/2013 10:10 AM PST Progress Notes by Shayla Hennessy LPN at 09/09/13 1010 Author: Shayla Hennessy LPN Service: (none) Author Type: Registered Nurse Filed: 09/09/13 1010 Date of Service: 09/09/13 1010 Status: Signed Mobile Phlebotomist: Shayla Hennessy LPN (Registered Nurse) Visited with pt this am regarding warfarin education. [facility]. Pt has no questions regarding warfarin at this time. onver zoe Transaction, Provider Unknown - 09/09/2013 9:55 AM PST Progress Notes by Irina Cooley PTA at 09/09/13 0955 Author: Irina Cooley PTA Service: (none) Author Type: Announcer Filed: 09/09/13 1310 Date of Service: 09/09/13 0955 Status: Signed Mobile Phlebotomist: Irina Cooley PTA (Announcer) 09/09/13 0955 PT Last Visit PT Received [...] 09/09/13938 Date of Service: 09/09/13937 Status: Signed Mobile Phlebotomist: Drew Hurst MD (Physician) Subjective: Post-Operative Day: [...] Will get INR checked on Friday in Christmas. DREW HURST MD 09/09/2013 9:38 AM onversio n Transaction, Provider Unknown - 09/08/2013 1:16 PM PSTFormatting of this note might be di fferent from the original. Progress Notes by Ale Yee RD, CDE at 09/08/13 1316 Author: Ale Yee RD, VEDA Service: (none) Author Type: Records And Information Manager Filed: 09/08/13 5568 Date of Service: 09/08/131315 Status: Signed Mobile Phlebotomist: Ale Yee RD, CDE (Records And Information Manager) Met with pt and spouse. Reports he [...] and metformin. Ale Yee RD, MPH, CDE, Records And Information Manager 09/08/2013 1:39 PM onver zoe Transaction, Provider Unknown - 09/08/2013 12:35 PM PST Progress Notes by Mireya Hoyos PT at 09/08/13 1235 Author: Mireya Hoyos PT Service: (none) Author Type: Physical Therapist Filed: 09/08/13 1410 Date of Service: 09/08/13 1235 Status: Signed Mobile Phlebotomist: Mireya Hoyos PT (Physical Therapist) 09/08/13 1235 PT Last Visit PT Received On 09/08/13 Reason for Treatment Knee replacement Requires PT Follow Up Yes Follow up PT Only? No Assistance Required 1 person Board Of Directors Needed No Precautions LE Precaution(s) RLE (WBAT [...] exercise: Marching, LAQ, Heel raises, Glut squeezes: [id number] Standing exercise: Marching, Hip Abd, Hip ext: [id number] Patients actively encouraged each other throughout activities [...] Orthopedic Surgery Author Type: Physician Filed: 09/08/13 114 Date of Service: 09/08/13 1143 Status: Signed Mobile Phlebotomist: Derw Hurst MD (Physician) Subjective: Post-Operative Day: 1 [...] Author: ABBIE Delgado Service: (none) Author Type: Education Courses Sales Representative Filed: 09/08/1347 Date of Service: 09/08/13845 Status: Signed Mobile Phlebotomist: ABBIE Delgado (Education Courses Sales Representative) CM met with pt for discharge planning. Pt is 73 years old and lives with his in a 2-le alan home with a ramp at the main entrance. Pt has a rkrr-un-erkgfv. Pt owns a walker. Pt's w mike will assist with his daily living activities including personal hygiene, grooming, dress ing, feeding, cooking, transportation and ambulation. Pt had no resource concerns at this ti me. CM will continue to follow as needed. Discharge Plan: Home. Eric Sanabria SCHEDULER MAINTENANCE 09/08/13 0846 Discharge Planning Evaluation Admitting Diagnosis [...] Notes by Mireya Hoyos PT at 09/08/13 0889 Author: Mireya Hoyos PT Service: (none) Author Type: Physical Therapist Filed: 09/08/13 2218 Date of Service: 09/08/13 0866 Status: Signed Mobile Phlebotomist: Mireya Hoyos PT (Physical Therapist) 09/08/13 0847 PT Last Visit PT Received On 09/08/13 Reason for Treatment Knee replacement Requires PT Follow Up Yes Follow up PT Only? No Assistance Required 1 person Board Of Directors Needed No Precautions LE Precaution(s) RLE (WBAT [...] 09/07/132032 Date of Service: 09/07/132030 Status: Signed Mobile Phlebotomist: Jeimy Ayala RN (Registered Nurse) Spoke with [...] 161 Date of Service: 09/07/131610 Status: Signed Mobile Phlebotomist: ILSA Wallace (Occupational Therapist) 09/07/13 1343 Plan Requires OT Follow Up Unavailable (Pt with PT ) Pt unavailable upon OT arrival. Plan to re-attempt evaluation/treatment as census permits ILSA Wallace 09/07/2013 onver zoe Transaction, Provider Unknown - 09/07/2013 1:25 PM PST Progress Notes by Gilberto Carl, PT at 09/07/13 1325 Author: Gilberto Carl PT Service: (none) Author Type: Physical Therapist Filed: 09/07/13 4983 Date of Service: 09/07/13 1325 Status: Signed Mobile Phlebotomist: Gilberto Carl PT (Physical Therapist) 09/07/13 1325 PT Last Visit PT Received On 09/07/13 Reason for Treatment Knee replacement Requires PT Follow Up Yes PT Eval/Reassessment Date 09/07/13 Board Of Directors Needed No Precautions LE Precaution(s) RLE (WBAT) [...] chair with back Prior Function Level of [place] Modified independent with functional mobility (Pt used SPC prior to sx) Lives With Spouse Employment Retired for age ([employer] full-time) RUE Assessment RUE Assessment WFL (rotator [...] Follow Up Yes PT Eval/Reassessment Date 09/07/13 Board Of Directors Needed No Precautions LE Precaution(s) RLE (WBAT) [...] Date of Service: 09/07/13 1257 Status: Signed Mobile Phlebotomist: Shelly Rojo RPH (Pharmacist) Renal Dosing Monitoring: [...] H&P by Drew Hurst MD at 09/06/13 0763 Author: Drew Hurst MD Service: Orthopedic Surgery Author Type: Physician Filed: 09/06/13 7145 Date of Service: 09/06/131624 Status: Signed Mobile Phlebotomist: Drew Hurst MD (Physician) Subjective: Patient is [...] Patient has been treat ed conservatively with yacp-ypm-mtnqwlx NSAIDs and activity modification. Patient currently rates [...] 1237 Date of Service: 09/07/131235 Status: Signed Mobile Phlebotomist: Jeimy Ayala RN (Registered Nurse) Problem: Safety [...] 1001 Date of Service: 09/07/13957 Status: Signed Mobile Phlebotomist: Drew Hurst MD (Physician) Located Within [facility] Service: Orthopedic Surgery Operative Report PREOPERATIVE DIAGNOSIS: right knee DJD POSTOPERATIVE DIAGNOSIS: right knee DJD PROCEDURE: right total knee arthroplasty with navigation SURGEON: Drew Hurst MD MAINTENANCE ENGINEER OIL FIELD: Kaur Del Angel MD ANESTHESIA: General ANESTHESIOLOGIST: Gopal AGUILAR FLUIDS: 1500cc ESTIMATED BLOOD LOSS: minimal TOURNIQUET TIME: 90 min Right thigh URINE OUTPUT: 250cc COMPLICATIONS: none IMPLANTS: [place] Triathlon Total Knee system 1- Size 4 [...] cutting block and made my cuts: anterior, firer kiln ior, anterior chamfer, and posterior chamfer. I removed the bony fragments, then placed a l aminar document controller in the flexion gap and removed the [...] of three liters sterile saline with pulse ballet soloist. There was no patellar maltracking. Floseal was [...] extubated. The [facility], and taken to the recovery [...]
--- OUTSIDE RECORDS SUMMARY | ~2020-06-27 | XMS | Encounter Summary ---
Demographics + + + | Address | [address] | | | [place] [address] | + + + | Home Phone [...] Providers + +------+ + | Care Community Service Officer Coordinator Name | Role | Phone | [...] | | | | | | | MT | | | | | | | ESOPHAGOGAST | | | | | | | RODUODENOSCO | | | | | | | PY TRANSORAL | | | | | | | DIAGNOSTIC | | | | | | | MT EGD | | | | | | | TRANSORAL | | | | | | | BIOPSY | | | | | | | SINGLE/MULTI | | | | | | | PLE MT EGD | | | | | | | BALLOON | | | | | | | DILATION | | | | | | | ESOPHAGUS | | | | | | | <30 MM DIAM | | | | | | | MT | | | | | | | [...] + + + | 02/08/ | [facility] | [facility] | Willow Colin MD | | | 2019 | Encounter | MED CTR OR PRE OP | [address] | | | | | [address] | [address] [place], | | | | | [place] [address] | [place] [address] | | | | | [phone] | [phone] | | | | | | | [...] encounter Miscellaneous Notes Sedation Documentation - Licha Aadir RN - 02/08/2019 4:39 PM PDTProcedure cancelled [...] [address] | [place] | [phone] | | [facility] | | [address] | | | - LABORATORY | | [...]
--- OUTSIDE RECORDS SUMMARY | ~2020-06-27 | XMS | Encounter Summary ---
Demographics + + + | Address | [address] | | | [place] [address] | + + + | Home Phone [...] Team Providers + +------+ + | Care Catshovel Driver Name | Role | Phone | [...] | | | | Loop Physician's | [place], [place] | | | | | Pavilion, 3rd floor | [address] | | | | | [place], [place] | [phone] | | | | | [address] | | | | | | [phone] | | | +--------+ + + + [...] Cottrell Ma - 06/24/2018 12:16 PM PDTThis [facility] into the [facility] system of care. Please contact [facility] ID at phone: [phone]; fa x: [phone] with any questions or concerns regarding this [...] sh e is fine w/ coming to [place] twice in a week as there were unsuccessful attempts at setti ng up joint appt. Care Coordination issues needing clarification: none when asked. elephone Encounter - Layne Huang - 06/18/2018 4:10 PM PDTDr. Rinkuwilliam only sees pts at [facility] on '. Could a provide r see the pt as a joint on , 07/23? elephone Encounter - Jaye Winchester RN - 06/17/2018 1:05 PM PDTFormatting o f this note might be different from the original. 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 During t hat time,we will cooridnate so that he may follow up with ID/OPAT in regards to his treatmen t. He will be discharged to [facility] to receive inpatient therapy and OPAT. Recommendations: 1. Change Cefazolin 2g IV q8 hours, with renal adjustments as required 2. Tentative duration of Cefazolin will be 6 weeks from the time of surgery (SOT: 06/12 - [place] T: 07/24) 3. Discussed with patient that OPAT can cont. at [facility]. If patient is discharged [...]
--- OUTSIDE RECORDS SUMMARY | ~2020-06-27 | XMS | Encounter Summary ---
Demographics + + + | Address | [address] | | | [place] [address] | + + + | Home Phone [...] Team Providers + +------+ + | Care Ultrasound Supervisor Name | Role | Phone | [...] | | | | Loop Physician[facility] | [place], [place] | | | | | [place], 3rd floor | [address] | | | | | [place], [place] | [phone] | | | | | [address] | | | | | | [phone] | | | +--------+ + + + [...]
--- OUTSIDE RECORDS SUMMARY | ~2020-06-27 | XMS | Encounter Summary ---
Demographics + + + | Address | [address] | | | [place] [address] | + + + | Home Phone [...] Team Providers + +------+ + | Care Truck Greaser Name | Role | Phone | + [...] 2019 | | [address] | [address] | | | | | [place] | [place] | | | | | [address] | [place] | | | | | [phone] | [address] | | | | | | [phone] | | | | | | | [...] | | | | using the MDRD IDPR | | | | | | traceable [...]
--- OUTSIDE RECORDS SUMMARY | ~2020-06-27 | XMS | Encounter Summary ---
Demographics + + + | Address | [address] | | | [place] [address] | + + + | Home Phone [...] Team Providers + +------+ + | Care Flight Reservations Manager Name | Role | Phone | [...] | | | | Loop Physician's | [place], [place] | | | | | Pavilion, 3rd floor | [address] | | | | | [place], [place] | [phone] | | | | | [address] | | | | | | [phone] | | | +--------+ + + + [...] Celia Hawthorne RN - 07/01/2018 1:36 PM [facility] check in - Transitional Care Management Note ASSESSMENT Spoke with Beth Mas, of patient who is , at [phone]. Beth stated that infusi ons of cefazolin [...] without provider involvement . CELIA HAWTHORNE RN [facility] INFECTIOUS DISEASE PPV INFECTIOUS DISEASES AT [facility] 3RD FLOOR [address] [facility] [place] [address] documented in this enc ounter Plan of Treatment Not on filedocumented as of this encounter Visit Diagnoses Not on filedocumented in this encounter"
--- OUTSIDE RECORDS SUMMARY | ~2020-06-27 | XMS | Encounter Summary ---
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
--- OUTSIDE RECORDS SUMMARY | ~2020-06-27 | XMS | Encounter Summary ---
Demographics + + + | Address | [address] | | | [place] [address] | + + + | Home Phone | | + + + | Preferred Language | Unknown | + + + | Marital Status | | + + + | Nondenominational Affiliation | 1077 | + + + | Race | White | + + + | Ethnic Group | Not or | + + + Author + + + | Author | [facility] | | | and [place] | + + + | Organization | [facility] | | | [...] Team Providers + +------+ + | Care Duty Officer Name | Role | Phone | [...] | | | | | [address] | [address] [place] | | | | | [place] | [address] | | | | | [address] | | | | | | [phone] | | | +--------+ + + + [...] 1300 by | | eral | Hand; owpm-hqr-nskemz catheter | Fred Mendoza RN | Ferd Mendoza RN | | IV | system; [...] EVALUATION Duane Mas 77 y.o. male 1940 [id number] Procedure(s) EGD with Dilation (N/A Mouth) Cooperates? [...] by Ld Corado MD 07/31/2017 12:45 [facility] signed by Ld Corado MD at 02/2017 12:45 PM PDTAnesthesia Preprocedure Evaluation - Ld Corado MD - 07/30/2017 11: 41 AM PDT ANESTHESIA PREANESTHESIA EVALUATION Duane Mas 77 y.o. male 1940 [id number] Procedure(s): EGD with Dilation (N/A Mouth) Medical [...]
--- OUTSIDE RECORDS SUMMARY | ~2020-06-27 | XMS | Encounter Summary ---
Demographics + + + | Address | [address] | | | [place] [address] | + + + | Home Phone [...] Team Providers + +------+ + | Care Dermatologist And Dermatopathologist Name | Role | Phone | + [...] Abnormal | | | | [address] | [address] | | | | | Loop Physician's | [place], [place] | | | | | [place], [facility] floor | [address] | | | | | [place], [place] | [phone] | | | | | [address] | | | | | | [phone] | | | +--------+ + + + [...] that the patient has been admitted to [facility] as of yesterday. He is in [...]
--- OUTSIDE RECORDS SUMMARY | ~2020-06-27 | XMS | Encounter Summary ---
Demographics + + + | Address | [address] | | | [place] [address] | + + + | Home Phone [...] Team Providers + +------+ + | Care Freight Router Name | Role | Phone | + [...] floor | | | | | | [place], [place] | | | | | | [address] | | | +--------+ + + + [...]
--- OUTSIDE RECORDS SUMMARY | ~2020-06-27 | XMS | Encounter Summary ---
Demographics + + + | Address | [address] | | | [place] [address] | + + + | Home Phone [...] Providers + +------+ + | Care Financial Administrator Name | Role | Phone | [...] | | | | Loop Phys[facility] | [place], [place] | | | | | [place], 3rd floor | [address] | | | | | [place], [place] | [phone] | | | | | [address] | | | | | | [phone] | | | +--------+ + + + [...] Jaye Winchester RN - 06/24/2018 9:43 AM [facility] check in - Transitional Care Management Note ASSESSMENT Spoke with nurse Aguilera at [facility] at [phone]. Verified fax number: [phone] She stated that infusions of Cefazolin 2gm [...] updated lab orders to include CRP to [phone]. NURSING OUTCOME EVALUATION Previous nursing concern(s): no [...] completed without provider involvement Jaye Winchester RN [facility] INFECTIOUS DISEASE PPV INFECTIOUS DISEASES AT [facility] 3RD FLOOR [address] [facility] [place] [address] documented in this en counter Plan of Treatment Not on filedocumented as of this encounter Visit Diagnoses Not on filedocumented in this encounter"
--- OUTSIDE RECORDS SUMMARY | ~2020-06-27 | XMS | Encounter Summary ---
Demographics + + + | Address | [address] | | | [place] [address] | + + + | Home Phone [...] Providers + +------+ + | Care Fur Designer Name | Role | Phone | [...] [address] | | | | | [address] | [address] | | | | | Loop Physician's | [place], [place] | | | | | [place], [facility] floor | [address] | | | | | [place], [place] | [phone] | | | | | [address] | | | | | | [phone] | | | +--------+ + + + [...]
--- OUTSIDE RECORDS SUMMARY | ~2020-06-27 | XMS | Encounter Summary ---
Demographics + + + | Address | [address] | | | [place] [address] | + + + | Home Phone [...] Team Providers + +------+ + | Care Natural Science Manager Name | Role | Phone | [...] + + | 02/10/ | Surgery | [facility] | Willow Colin MD | EGD WITH DILITATION | | 2019 | | MED CTR MP INTRA OP | [address] | | | | | [address] | [address] [place], | | | | | [place] | [place] [address] | | | | | [address] | [phone] | | | | | [phone] | | | +--------+---------+ + + + [...] You can't be awakened Date Last Reviewed: 08/13/201619999539-7291 [employer]. [address] [place] [address]. All [facility] ts reserved. This information is not [...] you take. This includes prescription medicines, o ovk-gnb-mqmfmks medicines, herbs, vitamins, and other supplements. Be [...] icine to relax you. The procedure takes thlho99egykzwc. It does not cause trouble breath ing. [...] Black, tarry, or bloodystools Date Last Reviewed: 04/26/201619991343-8027 [employer]. [address] [place] [address], [place] [address]. All righ ts reserved. This information is [...] prescription medicines Herbs, vitamins, and other supplements Gavn-sfr-dvjucch medicines such as aspirin or ibuprofen Street [...] heart or lung disease Date Last Reviewed: 05/27/201719996768-2060 [employer]. [address] [place] [address]. All righ ts reserved. This information is [...] signed by: Willow Colin MD, 02/10/2019 13:00 [facility] by Willow Colin MD at [...] Raciel Mccurdy | 0.9 - 1.2 | [facility] | | | | notified of result. [...] + + | [address] | [address] [facility] [address] | [place] [address] | [phone] | | [place] | | | [...] [address] | [place] | [phone] | | [facility] | | [address] | | | - LABORATORY | | [...] technical and professional components were performed by [employer] | | | Alerts, [address] [place] [address] | | | (Spine Supervisor: Don Morrell D.O.; [facility]#: [id number]). | | | Diagnostician: Gely Cerna MD [...]
--- OUTSIDE RECORDS SUMMARY | ~2020-06-27 | XMS | Encounter Summary ---
Demographics + + + | Address | [address] | | | [place] [address] | + + + | Home Phone [...] + +------+ + | Care Operating Room Assistant Name | Role | Phone | + +------+ + | Erin Forrester MD | PCP | | + +------+ + Encounter Details +--------+ + + + + | Date | Type | Department | Care Team | Description | +--------+ + + + + | 12/06/ | Orders Only | [facility] | Conversion | | | 2017 | | CARDIOLOGY [facility] | Transaction, | | | | | [address] | Provider Unknown | | | | | [place] | [phone] | | | | | [address] | | | | | | [phone] | | | +--------+ + + + [...]
--- OUTSIDE RECORDS SUMMARY | ~2020-06-27 | XMS | Encounter Summary ---
Demographics + + + | Address | [address] | | | [place] [address] | + + + | Home Phone | | + + + | Preferred Language | Unknown | + + + | Marital Status | | + + + | Catholic Affiliation | 1077 | + + + | Race | White | + + + | Ethnic Group | Not or | + + + Author + + + | Author | [facility] | | | and [place] | + + + | Organization | [facility] | | | [...] Team Providers + +------+ + | Care Platform Inspector Name | Role | Phone | + +------+ + | Erin Forrester MD | PCP | | + +------+ + Encounter Details +--------+ + + + + | Date | Type | Department | Care Team | Description | +--------+ + + + + | 06/08/ | Orders Only | [facility] | Conversion | | | 2019 | | NEPRHOLOGY [place] | Transaction, | | | | | [address] | Provider Unknown | | | | | [address] [place] | [phone] | | | | | [address] | | | | | | [phone] | | | +--------+ + + + [...] | | | LAB | | | Chinese | | | | | + + [...]
--- OUTSIDE RECORDS SUMMARY | ~2020-06-27 | XMS | Encounter Summary ---
Demographics + + + | Address | [address] | | | [place] [address] | + + + | Home Phone [...] Team Providers + +------+ + | Care Glue Specialty Supervisor Name | Role | Phone | [...] | | | | Loop Physician's | [place], [place] | | | | | Pavilion, 3rd floor | [address] | | | | | [place], [place] | [phone] | | | | | [address] | | | | | | [phone] | | | +--------+ + + + [...] 07/27/2018 9:17 AM PDTSpoke with Cierra fernando [facility] [phone] and she confirmed that the patient's PICC line is being pulled t his morning. I will call back to for confirmation this afternoon. documented in this encounter Plan of Treatment Not on filedocumented as of this encounter Visit Diagnoses Not on filedocumented in this encounter"
--- OUTSIDE RECORDS SUMMARY | ~2020-06-27 | XMS | Encounter Summary ---
Demographics + + + | Address | [address] | | | [place] [address] | + + + | Home Phone [...] Team Providers + +------+ + | Care Film Drying Machine Operator Name | Role | Phone [...] CH16D | | | | | | [facility] | | | | | | and Healing, | | | | | | Building [address], 5th | | | | | | Floor [place], [place] | | | | | | [address] | | | | | | [phone] | | | +--------+ + + + [...] punch | | | | | | savkvao-rici-acp skin, | | | | | | [...] [facility] | Mail[address] | [place] | | | DERMATOPATHOLOGY | [address] | | | + + + + + | [facility] | Mailcode [address] | [place] [address] | | | DERMATOPATHOLOGY | [address] | | | + + + + + documented in this encounter Visit Diagnoses + + | Diagnosis | + + | Other specified dermatitis | + + documented in this encounter
--- OUTSIDE RECORDS SUMMARY | ~2020-06-27 | XMS | Encounter Summary ---
Demographics + + + | Address | [address] | | | [place] [address] | + + + | Home Phone [...] Team Providers + +------+ + | Care Harp Action Assembler Name | Role | Phone | + +------+ + PCP | Unavailable | + +------+ + Encounter Details +--------+ + + + + | Date | Type | Department | Care Team | Description | +--------+ + + + + | 09/16/ | Hospital | [facility] | Olaf Nicole | | | 2000 | Encounter | [facility] MED CTR | MD Amy [address] | | | | | GENERIC CONV DEPT | [address] | | | | | [address] | [place] [address] | | | | | [place] | [phone] | | | | | [address] | | | | | | [phone] | | | +--------+ + + + [...]
--- OUTSIDE RECORDS SUMMARY | ~2020-06-27 | XMS | Encounter Summary ---
Demographics + + + | Address | [address] | | | [place] [address] | + + + | Home Phone [...] Team Providers + +------+ + | Care Eeg Technician Name | Role | Phone | + +------+ + | Gilberto Estrada MD | PCP | | + +------+ + Encounter Details +--------+ + + + + | Date | Type | Department | Care Team | Description | +--------+ + + + + | 06/11/ | Emergency | [facility] Emergency | [place], | | | 2017 | | Department [address] | [address] | | | | | [address] | [place], [place] | | | | | [facility] | [address] | | | | | [place], [place] | [phone] | | | | | [address] | | | | | | [phone] | | | +--------+ + + + [...] | | 0 | | | | [id number] | mouth once daily. | | | [...] Leon who advised PT to come to [facility] ED. Advised Dr. Yen to [...]
--- OUTSIDE RECORDS SUMMARY | ~2020-06-27 | XMS | Encounter Summary ---
Demographics + + + | Address | [address] | | | [place] [address] | + + + | Home Phone [...] Team Providers + +------+ + | Care Diversified Crops Ii Farmworker Name | Role | Phone | + [...]
--- OUTSIDE RECORDS SUMMARY | ~2020-06-27 | XMS | Encounter Summary ---
Demographics + + + | Address | [address] | | | [place] [address] | + + + | Home Phone [...] Team Providers + +------+ + | Care Landscape Photographer Name | Role | Phone | + +------+ + PCP | Unavailable | + +------+ + Encounter Details +--------+ + + + + | Date | Type | Department | Care Team | Description | +--------+ + + + + | 10/08/ | Hospital | [facility] | Olaf Nicole | | | 1998 - | Encounter | HEART MED CTR | MD [address] | | | | | CARDIAC TELEMETRY | [address] | | | 10/09/ | | [address] | [place] [address] | | | 1998 | | [place] | [phone] | | | | | [address] | | | | | | [phone] | | | +--------+ + + + [...]
--- OUTSIDE RECORDS SUMMARY | ~2020-06-27 | XMS | Encounter Summary ---
Demographics + + + | Address | [address] | | | [place] [address] | + + + | Home Phone [...] Providers + +------+ + | Care Sample Maker Original Name | Role | Phone | + [...] Jerome | | | | | Jr [facility] | [address] | | | | | Hospital Admitting | [place], [place] | | | | | Desk Located on the | [address] | | | | | 9th floor | [phone] | | | | | [facility] [place] | | | | | | [address] | Princess Ward MD | | | | | | [address] | | | | | | [place], | | | | | | [place] [address] | | | | | | [phone] | | | | | | | [...] Line | Standard; Left; 20g; 06/12/18; | SMALL BUSINESS CONSULTANT | | | | 1617; Per order | | | +--------+ + + + | Periph | 06/12/18; 1323; Right; Wrist; 20 | 06/12/18 1323 by | 06/14/181999 by | | eral | g; 06/14/18; 1999 | Robel Page, | Gabriel Zapata RN | | IV | | SMALL BUSINESS CONSULTANT | | +--------+ + + + | Drain | 06/12/18; 1422; Barrett AGUILAR; | 06/12/18 1422 by | 06/16/18 0000 by | | | Hemovac; Right; knee; 06/16/18; | Lauren eVga RN | Padmini Magaña RN | | [...] be different from the original. Duane Mas [id number] Allergies Allergen Reactions Sulfa (Sulfonamide Antibiotics) Rash [...] e different from the original. 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
--- OUTSIDE RECORDS SUMMARY | ~2020-06-27 | XMS | Encounter Summary ---
Demographics + + + | Address | [address] | | | [place] [address] | + + + | Home Phone [...] Team Providers + +------+ + | Care Lining Parts Sewer Name | Role | Phone | + [...] CH16D | | | | | | [facility] | | | | | | and Healing, | | | | | | Building 1, 5th | | | | | | Floor [place], [place] | | | | | | [address] | | | | | | [phone] | | | +--------+ + + + [...] [facility] | [address]andra [address] | [place] [address] | | | DERMATOPATHOLOGY | [address] | | | + + + + + | [facility] | Mary [address] | [place] [address] | | | DERMATOPATHOLOGY | [address] | | | + + + + + documented in this encounter Visit Diagnoses Not on filedocumented in this encounter"
--- OUTSIDE RECORDS SUMMARY | ~2020-06-27 | XMS | Encounter Summary ---
Demographics + + + | Address | [address] | | | [place] [address] | + + + | Home Phone [...] Team Providers + +------+ + | Care Dinkey Brakeman Name | Role | Phone | + [...] | 2018 | Event | [address] [facility] | [address] | | | | | Jr [facility] | [facility] | | | | | Hospital Admitting | [place], [place] | | | | | Desk Located on the | [address] | | | | | 9th floor | [phone] | | | | | [place], [place] | | | | | | [address] | | | +--------+ + + + [...]
--- OUTSIDE RECORDS SUMMARY | ~2020-06-27 | XMS | Encounter Summary ---
Demographics + + + | Address | [address] | | | [place] [address] | + + + | Home Phone | | + + + | Preferred Language | Unknown | + + + | Marital Status | | + + + | Druze Affiliation | 1077 | + + + | Race | White | + + + | Ethnic Group | Not or | + + + Author + + + | Author | [facility] | | | and [place] | + + + | Organization | [facility] | | [...] Team Providers + +------+ + | Care Picc Nurse Name | Role | Phone | + +------+ + PCP | Unavailable | + +------+ + Encounter Details +--------+ + + + + | Date | Type | Department | Care Team | Description | +--------+ + + + + | 10/12/ | Hospital | [facility] | Olaf Nicole | | | 1997 - | Encounter | HEART MED CTR | MD [address] | | | | | CARDIAC TRANSPLANT | [address] | | | 10/13/ | | [address] | [place] [address] | | | 1997 | | [place] | [phone] | | | | | [address] | | | | | | [phone] | | | +--------+ + + + [...]
--- OUTSIDE RECORDS SUMMARY | ~2020-06-27 | XMS | Encounter Summary ---
Demographics + + + | Address | [address] | | | [place] [address] | + + + | Home Phone [...] + + + | Author | [facility] | | | and [place] | + + + | Organization | [facility] | | | [...] Providers + +------+ + | Care Lead Project Manager Name | Role | Phone | + +------+ + | Erin Forrester MD | PCP | | + +------+ + Encounter Details +--------+ + + + + | Date | Type | Department | Care Team | Description | +--------+ + + + + | 01/12/ | Orders Only | [facility] | Conversion | | | 2017 | | NEPHROLOGY [place] | Transaction, | | | | | [address] | Provider Unknown | | | | | [address] | [phone] | | | | | [address] | | | | | | [phone] | | | +--------+ + + + [...] - 1.030 | EXTERNAL | | | [place], | | | LAB | | | [...]
--- OUTSIDE RECORDS SUMMARY | ~2020-06-27 | XMS | Encounter Summary ---
Demographics + + + | Address | [address] | | | [place] [address] | + + + | Home Phone [...] Team Providers + +------+ + | Care Purifying Plant Operator Name | Role | Phone | [...] | [address] | [address] [facility] | | | | | [place] | [address] [place] | | | | | [address] | [address] | | | | | [phone] | | | +--------+ + + + [...] - 1.030 | EXTERNAL | | | [place], | | | LAB | | | [...]
--- OUTSIDE RECORDS SUMMARY | ~2020-06-27 | XMS | Encounter Summary ---
Demographics + + + | Address | [address] | | | [place] [address] | + + + | Home Phone [...] Providers + +------+ + | Care Cardiology Manager Name | Role | Phone | + +------+ + PCP | Unavailable | + +------+ + Encounter Details +--------+ + + + + | Date | Type | Department | Care Team | Description | +--------+ + + + + | 09/17/ | Hospital | [facility] | Zay Francis, | | | 1996 - | Encounter | HEART MED CTR | [address] | | | | | CARDIAC TELEMETRY | [address] | | | 09/21/ | | [address] | [place] [address] | | | 1998 | | [place] | [phone] | | | | | [address] | | | | | | [phone] | | | +--------+ + + + [...]
--- OUTSIDE RECORDS SUMMARY | ~2020-06-27 | XMS | Encounter Summary ---
Demographics + + + | Address | [address] | | | [place] [address] | + + + | Home Phone [...] Team Providers + +------+ + | Care Art Psychotherapist Or Therapist Name | Role | Phone | [...] | | | | Loop Physician's | [place], [place] | | | | | [place], [facility] floor | [address] | | | | | [place], [place] | [phone] | | | | | [address] | | | | | | [phone] | | | +--------+--------+ + + + [...]
--- OUTSIDE RECORDS SUMMARY | ~2020-06-27 | XMS | Encounter Summary ---
Demographics + + + | Address | [address] | | | [place] [address] | + + + | Home Phone [...] Providers + +------+ + | Care Corporate Responsibility Officer Name | Role | Phone | [...] | | | | and | | [address] | | | | | inflammatory | | [address] | | | | | reaction | | [address] [place], | | | | | due to | | [place] | | | | | internal | | [address] | | | | | right knee | | Phone: | | | | | prosthesis, | | [phone] | | | | | initial | | Fax: | | | | | encounter | | [phone] | +--------+--------+ + + + + Encounter [...] | | | | Loop Physician's | [facility] [place] | subsequent encounter | | | | [place], 3rd floor | [address] | (Primary Dx); Long | | | | [place], [place] | [phone] | term (current) use | | | | [address] | | of antibiotics | | | | [phone] | | | +--------+---------+ + + + [...] Take by mouth., Disp: , Rfl: antiox. no.[id number] (I-CAPS) 280-10-2 mg oral capsule, Take 1 [...] locally Abril Shields MD Infectious Diseases [phone] documented in this encounter Plan of Treatment [...]
--- OUTSIDE RECORDS SUMMARY | 2020-06-27 20:52 | XMS ---
PreManage Notification: JÚNIOR ARREOLA Security Blockmason Events No recent Security Events currently on file CRITERIA MET - [facility] - 2 Visits in 30 Days CARE PROVIDERS GILMA CULVER [facility] 07/03/2018-Current PHONE: [phone] Glenna has no Care Guidelines for this patient. Alexis VISIT COUNT (12 MO.) 3 [facility] TOTAL 3 NOTE: Visits indicate total known visits. ED/UCC VISIT TRACKING (12 MO.) 06/27/2020 20:50 [facility] [place] TYPE: Emergency COMPLAINT: - POSSIBLE COVID 06/19/2020 18:29 [facility] [place] TYPE: Emergency COMPLAINT: - SOB/FEVER DIAGNOSES: - Old myocardial infarction - Other exterminator helper termite (current) drug therapy - Heart failure, unspecified - Personal history of nicotine dependence - Fever, unspecified - Hypertensive heart disease with heart failure - Type 2 diabetes mellitus without complications - Allergy status to sulfonamides status 12/19/2019 23:12 [facility] [place] TYPE: Emergency COMPLAINT: - CONSTIPATION/ FEVER/URINE PROBLEM INPATIENT VISIT TRACKING (12 MO.) 12/19/2019 23:13 [facility] [place] TYPE: Observation COMPLAINT: - UTI DIAGNOSES: - Personal history of nicotine dependence - ferry terminal agent (current) use of systemic steroids - MCC (current) use of oral hypoglycemic drugs - Personal history of other diseases of the circulatory system - Chronic kidney disease, unspecified - Unspecified staphylococcus as the cause of diseases classifie - ferry terminal agent (current) use of antibiotics - Heart failure, unspecified - Old myocardial infarction - Unspecified osteoarthritis, unspecified site - Hypertensive heart and chronic kidney disease with heart fail - Other mcc (current) drug therapy - Urinary tract infection, site not specified - Atherosclerotic heart disease of [place] coronary artery witho - Type 2 diabetes mellitus with diabetic chronic kidney disease - Allergy status to sulfonamides status - Infection and inflammatory reaction due to internal right kne [id number]
[2020-06-27] MEDS ORDERED: JANUVIA50 MG PO (22:06)
[2020-06-27] MEDS ORDERED: LUTEIN-ZEAXANT1 EAC1 PO (22:08)
[2020-06-27] MEDS ORDERED: VITAMIN C500 M5 PO (22:08)
[2020-06-27] MEDS ORDERED: VITAMIN B122500 MCG PO (22:09)
[2020-06-27] MEDS ORDERED: GLIPIZIDE10 MG PO (22:10)
[2020-06-27] MEDS ORDERED: NIACIN500 M1 PO (22:10)
[2020-06-27] MEDS ORDERED: KEFLEX500 MG PO (22:11)
[2020-06-27] MEDS ORDERED: MEDROL2 MG PO (22:12)
[2020-06-27] MEDS ORDERED: COLCHICINE0.6 M1 PO (22:13)
--- NOTE | 2020-06-28 10:30 | EKG ---
[facility] [address] [facility] [place] [address] Signed Sinus tachycardia with 1st degree AV block with premature atrial complexes with aberrant conduction Right bundle branch block Inferior infarct , age undetermined Abnormal ECG When compared with ECG of 20-JUN-2018 20:39, aberrant conduction is now present T wave inversion no longer evident in Anterolateral leads Confirmed by ANIBAL VARGAS DO ([id number]) on 06/28/2020 10:29:50 AM Electronically Signed By: ANIBAL VARGAS DO 06/28/20 1030 PATIENT NAME: JÚNIOR ARREOLA Electrocardiogram DATE OF : 36 PHYSICIAN: ANIBAL VARGAS DO REPORT #: [id number] REPORT IS CONFIDENTIAL AND NOT TO BE RELEASED WITHOUT AUTHORIZATION
--- NOTE | 2020-06-28 17:47 | PATH ---
[facility] [address] [place], [place] [address] Signed ORDERING PHYSICIAN: Benny Silver MD PATIENT NAME: JÚNIOR ARREOLA GENDER: M : 1940 SPECIMEN(S): CLINICAL HISTORY: Routine Pap Smear MOLECULAR PATHOLOGY RESULTS: SARS-CoV-2 DETECTED ADDITIONAL NOTES.: The Mereta Fusion SARS-CoV-2 Assay is a multiplex real-time PCR (RT-PCR) in vitro diagnostic test intended for the qualitative detection of RNA from SARS-CoV-2 from individuals who meet COVID-19 clinical and/or epidemiological criteria. In general, SARS-CoV-2 RNA can be detected during the acute phase of infection. Positive results indicate the presence of SARS-CoV-2 RNA. Clinical correlation with patient history and other diagnostic information is necessary to determine patient infection status. Positive results do not rule out bacterial infection or co-infection with other viruses. Negative results do not preclude SARS-CoV-2 infection and should not be used as the sole basis for patient management decisions. Negative results must be combined with other clinical observations, patient history, and epidemiological information. The Mereta Fusion SARS-CoV-2 Assay is not yet approved or cleared by the [place] FDA. When there are no FDA-approved or cleared tests available, and other criteria are met, FDA can make tests available under an emergency access mechanism called an Emergency Use Authorization (EUA). The EUA for this test is supported by the [place] of Health and Human Service's (HHS's) declaration that circumstances exist to justify the emergency use of in vitro diagnostics for the detection and/or diagnosis of the virus that causes COVID-19. This EUA will remain in effect for the duration of the COVID-19 declaration justifying emergency of IVDs, unless it is terminated or revoked by FDA, after which the test may no longer be used. The Mereta Fusion SARS-CoV-2 Assay is for use only under EUA in US laboratories certified under the Clinical Laboratory Improvement PATIENT NAME: JÚNIOR ARREOLA PATHOLOGY DATE OF : 36 REPORT #: [id number] PHYSICIAN: COLT MITCHELL PCP: GILMA CULVER MD REPORT IS CONFIDENTIAL AND NOT TO BE RELEASED WITHOUT AUTHORIZATION [address] [address] Signed Amendments of 1988 (CLIA) to perform high complexity tests. [facility] is certified under CLIA to perform high complexity clinical laboratory testing. PERFORMING LABORATORY.: Molecular testing was performed by [facility] [address] [place], [place] [address] [address] (Interface Engineer: Don Morrell D.O.; CLIA#: [id number]) Diagnostician: System Interface Pathologist Electronically Signed 06/28/2020 Copies: ~ PATIENT NAME: JÚNIOR ARREOLA PATHOLOGY DATE OF : 36 REPORT #: [id number] PHYSICIAN: COLT MITCHELL PCP: GILMA CULVER MD REPORT IS CONFIDENTIAL AND NOT TO BE RELEASED WITHOUT AUTHORIZATION
== END 2020-06-27 22:48 | disposition home or self-care (01) ==
LOC: ED 20:49
DX: U07.1 COVID-19 (principal); I11.0 Hypertensive heart disease with heart failure; I50.9 Heart failure, unspecified; I25.2 Old myocardial infarction; E11.9 Type 2 diabetes mellitus without complications; Z87.891 Personal history of nicotine dependence; Z79.899 Other long term (current) drug therapy
CPT/HCPCS: 71045; 80053; 81001; 85025; 93005; 93010; 96360; 99285-25; C9803; J7030

== ENCOUNTER 2020-06-30 12:47 | Emergency (ER) | payer MEDICARE, OTHER ==
[~2020-06-30] VITALS: Ht 170.2 cm; Wt 81.8 kg
--- OUTSIDE RECORDS SUMMARY | ~2020-06-30 | XMS | Encounter Summary ---
Demographics + + + | Address | [address] | | | [place] [address] | + + + | Home Phone | | + + + | Preferred Language | Unknown | + + + | Marital Status | | + + + | Sikhism Affiliation | [id number] | + + + | Race | White | + + + | Ethnic Group | Not or | + + + Author + + + | Author | [facility] | | | and [place] | + + + | Organization | [facility] | | | [...] Team Providers + +------+ + | Care High Climber Name | Role | Phone | + +------+ + | Erin Forrester MD | PCP | | + +------+ + Encounter Details +--------+ + + + + | Date | Type | Department | Care Team | Description | +--------+ + + + + | 10/09/ | Orders Only | [facility] | Robel Ricci | | | 2014 | | CARDIOLOGY [facility] | MD [address] | | | | | NUC MED [address] | Kir[address]ou | | | | | [address] | [address] [address] | | | | | [place], [place] | [phone] | | | | | [address] | | | | | | [phone] | | | +--------+ + + + [...] | + +--------+ + + + | NM NUCLEAR STRESS | Routin | 10/09/2015 | | Results for this | | TEST (PHARMACOLOGIC | e | 10:18 AM | | procedure are in the | | - VASODILATOR) | | PST | | results section. | + +--------+ + + + documented in this encounter Results NM Nuclear Stress Test (Vasodilator) (10/09/2015 10:18 AM PST) + + | Specimen | + + | | + + + + + | Impressions | Performed At | + + + | 1. Abnormal study. Mild distal inferior and apical ischemia. | | | LVEF 53 % 2. Stress ECG: Negative for Lexiscan-induced ischemia. | | | 3. No arrhythmias detected. 4. No Lexiscan induced chest pain. | | | 5. No previous test for comparison. | | + + + + + + | Narrative | Performed At | + + + | [facility] CARDIOLOGY Nuclear Lexiscan Stress Test History: | | | 75 Year old male being evaluated for coronary artery disease. | | | Rest Data: HR: 63 bpm BP: 98 /50 Baseline ECG: sinus rhythm, 1st | | | degree AVB, RBBB/LAFB. Stress Data: HR: 94 bpm BP: 111/40 | | | Reaction to Lexiscan: shortness of breath, chest tightness 6/10, | | | 1-2/10 Stress ECG: Negative for Lexiscan-induced ischemia. | | | Arrhythmias: none Myocardial Perfusion: Images are adequate for | | | interpretation. No significant RV or lung uptake A mild apical and | | | moderate inferior perfusion defect seen on the stress images, to a | | | lesser degree on the resting images. SSS: 11 SRS: 5 SDS: 6 TID: 1.09 | | | Gated Images: Rest EDV: 125 mL Rest ESV: 59 mL Rest EF: 53 % | | | Stress EDV: 134 mL Stress ESV: 63 mL Stress EF: 53 % No evidence of | | | regional wall motion abnormality Procedure: 12.0 mCi of 99m Tc | | | Myoview was given intravenously for rest images. 31.3 mCi of 99m Tc | | | Myoview was given intravenously for stress images at 0:35. Effective | | | Dose Equivalent 14.9 mSv The patient received 0.4mg Lexiscan | | | intravenously. | | + + + + + | Procedure Note | + + | Rocky, Rad Conversion - 06/17/2019 11:57 PM [facility] | | Lexiscan Stress Test History:75 Year old male being evaluated for coronary artery | | disease. Rest Data:HR: 63 bpm BP: 98 /50Baseline ECG: sinus rhythm, 1st degree AVB, | | RBBB/LAFB. Stress Data:HR: 94 bpm BP: 111/40Reaction to Lexiscan: shortness of breath, | | chest tightness 6/10, 1-2/10Stress ECG: Negative for Lexiscan-induced | | ischemia.Arrhythmias: none Myocardial Perfusion:Images are adequate for | | interpretation.No significant RV or lung uptakeA mild apical and moderate inferior | | perfusion defect seen on the stress images, to a lesser degree on the resting | | images.SSS: 11 SRS: 5 SDS: 6 TID: 1.09 Gated Images:Rest EDV: 125 mL Rest ESV: 59 mL | | Rest EF: 53 %Stress EDV: 134 mL Stress ESV: 63 mL Stress EF: 53 %No evidence of regional | | wall motion abnormality Procedure:12.0 mCi of 99m Tc Myoview was given intravenously | | for rest images.31.3 mCi of 99m Tc Myoview was given intravenously for stress images at | | 0:35.Effective Dose Equivalent 14.9 mSvThe patient received 0.4mg Lexiscan | | intravenously. IMPRESSION: 1. Abnormal study. Mild distal inferior and apical | | ischemia. LVEF 53 %2. Stress ECG: Negative for Lexiscan-induced ischemia.3. No | | arrhythmias detected.4. No Lexiscan induced chest pain.5. No previous test for | | comparison. | |Images are adequate for interpretation. | |No significant RV or lung uptake | |A mild apical and moderate inferior perfusion defect seen on the stress images, to a lesser degree on the resting images. | |SSS: 11 SRS: 5 SDS: 6 TID: 1.09 | | | |Gated Images: | |Rest EDV: 125 mL Rest ESV: 59 mL Rest EF: 53 % | |Stress EDV: 134 mL Stress ESV: 63 mL Stress EF: 53 % | |No evidence of regional wall motion abnormality | | | |Procedure: | |12.0 mCi of 99m Tc Myoview was given intravenously for rest images. | |31.3 mCi of 99m Tc Myoview was given intravenously for stress images at 0:35. | |Effective Dose Equivalent 14.9 mSv | |The patient received 0.4mg Lexiscan intravenously. | | | |IMPRESSION: | |1. Abnormal study. Mild distal inferior and apical ischemia. LVEF 53 % | |2. Stress ECG: Negative for Lexiscan-induced ischemia. | |3. No arrhythmias detected. | |4. No Lexiscan induced chest pain. | |5. No previous test for comparison. | | | | | + + documented in this encounter Visit Diagnoses Not on filedocumented in this encounter"
--- OUTSIDE RECORDS SUMMARY | ~2020-06-30 | XMS | Encounter Summary ---
Demographics + + + | Address | [address] | | | [place] [address] | + + + | Home Phone | | + + + | Preferred Language | Unknown | + + + | Marital Status | Unknown | + + + | Rastafarian Affiliation | PRO | + + + | Race | White | + + + | Ethnic Group | Not or | + + + Author + + + | Author | [facility] | + + + | Organization | [facility] | + + + | Address | Unknown | + + + | Phone | Unavailable | + + + Support + + +---------+ + | Name | Relationship | Address | Phone | + + +---------+ + | Beth Mas | ECON | Unknown | | + + +---------+ + Care Team Providers + +------+ + | Care Host And Hostess Name | Role | Phone | + +------+ + | Gilma Estrada MD | PCP | | + +------+ + Reason for Referral Occupational Therapy (Routine) +--------+--------+ + + + + | Status | Reason | Specialty | Diagnoses / | Referred By | Referred To | | | | | Procedures | Contact | Contact | +--------+--------+ + + + + | Closed | | Occupational | Diagnoses | [facility], | | | | | 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 | Ann Napoles MD | | | | | | associated | [address] | | | | | | with | [address] | | | | | | internal | [place] | | | | | | right knee | [place], [place] | | | | | | prosthesis, | [address] | | | | | | subsequent | Phone: | | | | | | encounter | [phone] | | | | | | Procedures | Fax: | | | | | | OCCUPATIONAL | [phone] | | | | | | THERAPY | | | | | | | REFERRAL | | | +--------+--------+ + + + + Physical Therapy (Routine) +--------+--------+ + + + + | Status | Reason | Specialty | Diagnoses / | Referred By | Referred To | | | | | Procedures | Contact | Contact | +--------+--------+ + + + + | Closed | | Physical | Diagnoses | [facility], | | | | | 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 | Ann Napoles MD | | | | | | associated | [address] | | | | | | with | [address] | | | | | | internal | [address] [place] | | | | | | right knee | [place], [place] | | | | | | prosthesis, | [address] | | | | | | subsequent | Phone: | | | | | | encounter | [phone] | | | | | | Procedures | Fax: | | | | | | PHYSICAL | [phone] | | | | | | THERAPY | | | | | | | REFERRAL | | | +--------+--------+ + + + + Reason for Visit + + + | Reason | Comments | + + + | Referral | | + + + | Knee Swelling | | + + + AUTH/CERT +--------+--------+ + + + + | Status | Reason | Specialty | Diagnoses / | Referred By | Referred To | | | | | Procedures | Contact | Contact | +--------+--------+ + + + + | | | | | | | +--------+--------+ + + + + Encounter Details +--------+ + + + + | Date | Type | Department | Care Team | Description | +--------+ + + + + | 06/11/ | Hospital | [facility] [address] | Sandra Valle MD | | | 2018 - | Encounter | [address] | [address] | | | | | [place], | [address] | | | 06/17/ | | [place] [address] | [place], [place] | | | 2018 | | [phone] | [address] | | | | | | [phone] | | | | | | | | | | | | Edyta Demarco MD | | | | | | [address] | | | | | | [address] | | | | | | [place], [place] | | | | | | [address] | | | | | | [phone] | | | | | | | | | | | | Dean Ugarte MD | | | | | | [address] | | | | | | [address] [place], | | | | | | [place] [address] | | | | | | [phone] | | | | | | | | | | | | Stephan Mercado MD | | | | | | [address] | | | | | | [address] | | | | | | [place], [place] | | | | | | [address] | | | | | | [phone] | | | | | | | | | | | | Dayan Valverde, | | | | | | [address] | | | | | | [address] | | | | | | [place], [place] | | | | | | [address] | | | | | | [phone] | | | | | | | | | | | | Hugh Park MD | | | | | | [address] | | | | | | [place], | | | | | | [place] [address] | | | | | | [phone] | | | | | | | | | | | | Ann Mahmood MD | | | | | | [address] | | | | | | [address] | | | | | | [place], [place] | | | | | | [address] | | | | | | [phone] | | | | | | | [...] + + + | Blood Pressure | 119/47 | 06/17/2018 10:02 AM | | | | | PDT | | + + + + + | Pulse | 76 | 06/17/2018 10:02 AM | | | | | PDT | | + + + + + | Temperature | 36.7 C (98.1 F) | 06/17/2018 3:48 AM | | | | | PDT | | + + + + + | Respiratory Rate | 14 | 06/17/2018 3:48 AM | | | | | PDT | | + + + + + | Oxygen Saturation | 99% | 06/17/2018 10:02 AM | | | | | PDT | | + + + + + | Inhaled Oxygen | - | - | | | Concentration | | | | + + + + + | Weight | 89.9 kg (198 lb 3.2 | 06/17/2018 7:35 AM | | | | oz) | PDT | | + + + + + | Height | 170.2 cm (5' 7") | 06/12/2018 9:33 PM | | | | | PDT | | + + + + + | Body Mass Index | 31.04 | 06/12/2018 9:33 PM | | | [...] + + documented as of this encounter Discharge Summaries Ann Mahmood MD - 06/16/2018 5:49 PM PDTFormatting of this note might be different fr om the original. Clinical Hospitalist Discharge Summary PCP: Gilma Estrada MD Author: Ann Mahmood MD Discharging Physician: Ann Mahmood MD Admission Date: 06/11/2018 Discharge Date: 06/17/2018 Diagnoses Principal Final Diagnosis: 1. Right prosthetic knee joint infection 2. 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 Acute on chronic kidney injury stage III 4. Chronic systolic heart failure 5. Ischemic cardiomyopathy 6. Diabetes mellitus type 2 7. Normocytic anemia 8. Bilateral lower extremity edema 9. History of DVT 10. Coronary artery disease 11. SEUN 12. Gout Procedures: Procedures 1. Right knee washout with polyethylene exchange on 06/12/18 Reason For Admission: Júnior Mas is a 78 y.o. Male with history of CAD (s/p PCI x3, CABG x2) complicated by coke burner erich systolic heart failure (EF 45%) due to ICM, sinus node dysfunction s/p pacemaker placeme nt 2015, Afib,HLD, DM2 (a1c 6.2), CKD stage III (baseline Cr ~1.7), SEUN, severe cervical s tenosis, prior DVT, R knee OA s/p total knee replacement 2012, and chronic venous insufficie ncy, who was admitted from the ED to the medicine service on 06/11/2018 for management of a p rosthetic right knee joint infection s/p washout and polyethylene exchange. Hospital Course: # Right prosthetic knee joint infection: # Patellar osteomyelitis due to Staph epidermidis: He presented with evidence of right knee infection and underwent right knee washout with po lyethylene exchange on 06/12 with retention of hardware. Cultures grew Staph epidermidis. Per ID, he was transitioned from vancomycin to cefazolin on 06/16 with plans for an 6 week cours e of therapy. Treatment failure is possible due to retained hardware and the patient underst ands that he may still require repeat surgery. PICC was placed 06/16 for antibiotic administr ation. He will F/U with Dr. Sherman (orthopedic surgery) on 07/23/18 at 10:40am. ID will arran ge a follow-up appointment for that day as well. He has been receiving Tylenol #3 for pain c ontrol with excellent response. He will continue PT/OT at [facility] swing bed unit. Per orthopedic surgery, stitches in his knee can be removed in 2 weeks after surgery (06/26/18). # Acute on chronic kidney injury stage III: He likely has CKD stage III with a baseline cre atinine of 1.7. His creatinine had been back to baseline before acutely rising to 2.17. Urin e sodium is 5 with FENa <1%, suggesting prerenal injury - likely either intravascular hypovo lemia or cardiorenal. He received a fluid bolus with modest improvement. He was restarted on torsemide on 06/16 and his renal function returned to baseline. He will need repeat labs at the end of this week to ensure stability. # Chronic systolic heart failure # Ischemic cardiomyopathy: He has chronic systolic heart failure secondary to ischemic cardiomyopathy. He was continue d on his home carvedilol, but torsemide, isosorbide and eplerenone were held due to ALVINO and low blood pressures. He was restarted on torsemide prior to discharge. It appears that he wa s previously on losartan, but may not be able to tolerate this medication going forward. He was restarted on eplerenone 12.5mg daily at discharge. # Diabetes mellitus type 2: Non-insulin dependent diabetes. He uses metformin and glimepiri de at home. Hemoglobin A1c 6.2 suggesting good control at home. These oral agents were held in the hospital and restarted at discharge. # Normocytic Anemia:Acute to subacute, mild, normocytic. Suspect anemia of inflammation. His Hgb remained stable. # Bilateral LE edema: He had evidence of chronic venous insufficiency and may have some deg ree of chronic edema related to heart failure. Compression wraps were continued. # History of DVT:Provoked DVT in 2012, but he has been on warfarin since that time. Held for surgery. Unclear if thereis an additional indication for warfarin as provoked DVT woul d have only required 3-6 months of therapy. There was some chart history of Afib, so perhaps that is the indication. ECG here showed sinus rhythm. Restartedwarfarin this admission an d bridged with subcutaneous heparin to prevent blood clots after surgery. Will defer need fo r long-term therapy to PCP. # CAD: Stable with no evidence of acute ischemia. He was restarted on his home simvastastin . # SEUN:Noncompliant with BiPAP. # Gout:No evidence of an acute gout flare. He was continued on allopurinol 300 mg daily. Discharge physical exam Vital Signs at discharge: BP: 105/55 (06/16/18 1551) Pulse: 89 (06/16/18 1551) Resp: 16 ( 0226) Weight: 84.1 kg (185 lb 6.5 oz) (new bed since yesterday) (06/15/18 06 30) Body mass index is 29.04 kg/m. General: Awake, alert and oriented. NAD. Well-appearing. Sitting up in a chair Neck: JVP 2cm above the clavicle sitting upright with HJR Cardiovascular: RRR, nl S1/S2, no murmurs Respiratory: A few crackles, greatest in the bases Abdomen: +BS, soft, non-tender, non-distended. Ext: warm, pulses present. Chronic venous stasis with 1+ edema Skin: no rashes or lesions Musculo: Right knee with bandaged incision and wound vac in place. No drains Discharge weight: Wt Readings from Last 1 Encounters: 06/15/18 84.1 kg (185 lb 6.5 oz) Pertinent Findings: Labs at discharge: sodium 138, potassium 4, creatinine 1.73 INR 1.78 Micro: 06/12 Knee cx: Staph epidermidis Imaging: CXR today: Right upper extremity PICC obscured by pacer leads with tip in either t he mid or lower superior vena cava Consultants: Orthopedic surgery- Dr. Ghassan Sherman ID- Dr. Ishaan Villalobos Outstanding labs/studies: none Code Status: Full POLST completed: no Core Measures: Diagnosis of CHF: Yes. Patient is not on an PATRICIA-I/ARB because of renal og lure. Patient is on a beta-afua at discharge. Medication List START taking these medications ceFAZolin Solr Commonly known as: ANCEF Inject 2,000 mg into the vein (IV) every eight hours. To be admixed per infusion pharmacy s tandard policy and/or procedure. Indications: bone/joint infection heparin, porcine (PF) 5,000 unit/0.5 mL Soln Inject 0.5 mL under the skin (SUBC) every eight hours for 2 days. Indications: Deep Vein Th rombosis Prevention senna-docusate 8.6-50 mg Tab Commonly known as: SENOKOT S Take 1 tablet by mouth two times daily. CHANGE how you take these medications acetaminophen-codeine 300-30 mg Tab Commonly known as: TYLENOL #3 Take 1 tablet by mouth every six hours as needed for severe pain. What changed: when to take this CONTINUE taking these medications allopurinol 300 mg Tab Commonly known as: ZYLOPRIM Take 300 mg by mouth once daily. carvedilol 12.5 mg Tab Commonly known as: COREG Take 12.5 mg by mouth two times daily. Administer with food. cholecalciferol (Vitamin D3) 1,000 unit Tab Commonly known as: VITAMIN D-3 Take 1,000 Units by mouth once daily. colchicine 0.6 mg Tab Take 0.6 mg by mouth once daily as needed (gout flare). eplerenone 25 mg Tab Commonly known as: INSPRA Take 12.5 mg by mouth once daily. FISH OIL ORAL Take 1 capsule by mouth once daily. folic acid 0.4 mg Tab Commonly known as: FOLVITE Take 400 mcg by mouth once daily. glimepiride 4 mg Tab Commonly known as: AMARYL Take 4 mg by mouth once daily with breakfast. I-CAPS 280-10-2 mg Cap Generic drug: antiox. [id number] Take 1 capsule by mouth once daily. magnesium oxide 400 mg Tab Commonly known as: MAG-OX Take 400 mg by mouth once daily. metFORMIN SR 500 mg Tb24 Commonly known as: GLUCOPHAGE XR Take 1,000 mg by mouth two times daily with meals. Administer with evening meal. methotrexate 2.5 mg Tab Take 15 mg by mouth every seven days. multivitamin Tab Commonly known as: THERA VITAMIN Take 1 tablet by mouth once daily. Niacinamide 500 mg Tab Take 1 tablet by mouth three times daily. simvastatin 40 mg Tab Commonly known as: ZOCOR Take 40 mg by mouth once daily in the evening. torsemide 20 mg Tab Commonly known as: DEMADEX Take 20 mg by mouth two times daily. warfarin 2.5 mg Tab Commonly known as: COUMADIN Take 2 tablets by mouth every Friday. Take 1 tablet by mouth all other days of the week. STOP taking these medications isosorbide mononitrate CR 60 mg Tb24 Commonly known as: IMDUR losartan 50 mg Tab Commonly known as: COZAAR potassium chloride SR 10 mEq Tbtq Commonly known as: K-DUR Rationale for Medication Changes: Stopped his home ISMN and losartan due to low blood pressures and issues with ALVINO Started cefazolin for treatment of his infection Allergies: Allergies Allergen Reactions Nsaids (Non-Steroidal Anti-Inflammatory Drug) Renal Failure Avoid per Frame Operator recommendations Sulfa (Sulfonamide Antibiotics) Rash Vital Signs Per policy PPD for Facility Administer PPD upon arrival Weigh Patient Daily Weigh yourself daily and keep a record of your weight. Diet Regular Regular diet- There are no restrictions to your diet. You may eat or drink whatever you pr efer, though healthy food choices are recommended. Activity No activity restrictions Contact information for after-discharge care Discharge Destination IP [facility] . Specialty: Acute Care Hospital Contact information [address] [facility] [address] [place] Location: [facility] [place] swing bed unit Appointments: Dr. Sherman on 07/23/18 at 10:40am. The discharge note was forwarded to the PCP for review. Discharging Physician: Ann Mahmood MD Suggested CPT: 73186 Discharge Management > 30 minute I spent more than 35 minutes [id number] with the patient of which 70% was spent counselin g the patient about plans for discharge and F/U with ortho and ID, and coordinating care wit h nursing, ortho, ID and case management. documented in this e ncounter Discharge Instructions Instructions Padmini Magaña RN - 06/17/2018Patient Education Materials: AVS Additional Instructions: None Discharge Nurse: PADMINI MAGAÑA RN Date: 06/17/2018 Discharge Time: 10:58 AM documented in this encounter Medications at Time of Discharge [...] | | 0 | | | | [id number] | mouth once daily. | | | [...] + + documented as of this encounter Progress Notes Elias Soriano MD - 06/17/2018 7:56 AM PDTFormatting of this note might be different from wojciech olivares original. Orthopaedic Surgery Progress Note Date: 06/17/2018 Hospital Day: 6 Orthopaedic Attending: Ghassan Sherman MD Diagnosis(es): Right total knee prosthetic joint infection. Orthopaedic Procedure(s) & Date(s): 06/13/2018 1. Right knee arthrotomy with drainage for infection and polyethylene exchange 2. Application TINO disposible negative pressure wound therapy dressing right knee [id number] Subjective: Doing ok overall. No CP/SOB. Tolerating PO. Up to bedside chair. Objective: 24 hour Vitals: Temp Av.5 C (97.7 F) Min: 36.2 C (97.2 F) Max: 36.7 C (98.1 F) Systolic (24hrs), Av , Min:91 , Max:116 Diastolic (24hrs), Av, Min:45, Max:63 Pulse Av.2 Min: 72 Max: 89 SpO2 Av.3 % Min: 96 % Max: 98 % Lab Results Component Value Date HCT 28.8 06/15/2018 HCT 30.1 06/14/2018 HCT 35.2 06/13/2018 Lab Results Component Value Date WBC 10.00 06/15/2018 HB 9.5 06/15/2018 HCT 28.8 06/15/2018 PLT 216 06/15/2018 MCV 92.9 06/15/2018 RDW 61.3 06/15/2018 Lab Results Component Value Date NA 138 06/17/2018 K 4.0 06/17/2018 CL 101 06/17/2018 BICARB 32 06/17/2018 BUN 40 06/17/2018 EGFRAFRICAN 46 06/17/2018 EGFRNONAFR 38 06/17/2018 CR 1.73 06/17/2018 GLU 154 06/17/2018 CA 8.5 06/17/2018 ANIONGAP 5 06/17/2018 ANIONALBCOR 8 06/14/2018 Intake/Output Summary (Last 24 hours) at 06/17/18 0756 Last data filed at 06/17/18 0430 Gross per 24 hour Intake 605 ml Output 1360 ml Net -755 ml Drains: 110ml/24hr Exam: General: appropriate, oriented RIGHT LOWER EXTREMITY: Inspection: Some strikethrough on TINO --No change from previous exam. TINO holding suctio n. Palpation: unremarkable Motor: fires tibialis anterior, fires gastrocsoleus complex, fires EHL, fires FHL, fire s quads, fires hamstrings Sensory: grossly intact to light touch, Unchanged sensation to deep/superficial peroneal , lateral/medial plantar distributions Vascular: digits warm & well perfused, capillary refill < 2 seconds Assessment & Plan: Júnior Mas is a 78 y.o.M with the orthopaedic diagnoses and procedures listed above. Today's specific concerns include: Recovering well. PICC placed yesterday. ID final recs for 6 weeks of IV ceftriaxone. Dispo: Plan to DC today to SNF in [place]. SNF can pull sutures at 2 weeks from operat kai date (June 27 is 2 weeks post op). Plan to return to Dr. Sherman' clinic 6 weeks an d also have ID clinic visit on that day. Appreciate [facility] and ID help in managing this complex patient. Care Protocol Items: 1. Activity: 1. Weight bearing: weight bearing as tolerated, right upper extremity 2. ROM: as tolerated, motion encouraged 2. VTE prophylaxis: high risk, warfarin, titrate to goal INR 2-3, with pharmacist consult, bridging with heparin 5000u SC TID until reaches therapeutic level, sequential compression d evices 3. Pain management: oral analgesia and IV analgesia, wean as possible 4. Antibiotics: IV ceftriaxone x 6 weeks per ID. 5. Special Concerns: None 6. Dressings/Drains: Drain pulled. TINO to remain on until battery falls off. 7. Dispo/Discharge: Dc today. 8. Follow-up: Please call the clinic to make a follow up appointment in approximately 6 we eks with ORTHO TRAUMA & FRACTURE, . AP and lateral of R knee at that time. Elias Soriano MD [facility] Department of Orthopaedics and Rehabilitation PGY-1 Pager [phone] Ann Vang MD - 4:42 PM PDT HOSPITALIST INPATIENT PROGRESS NOTE Author: Ann Mahmood MD PCP: Gilma Estrada MD Hospital Day:5 24h Events: Changed from vancomycin to cefazolin Subj: Feels pretty good. Finally got a bed bath today and feels much better. Noticed a alisia le difficulty breathing and chest congestion today. Feels all full of fluid. Current Medications: acetaminophen-codeine (TYLENOL #3) 300-30 mg 1 tablet, 1 tablet, oral, Q6H PRN allopurinol (ZYLOPRIM) tablet 300 mg, 300 mg, oral, DAILY bisacodyl (DULCOLAX) suppository 10 mg, 10 mg, rectal, DAILY PRN carvedilol (COREG) tablet 12.5 mg, 12.5 mg, oral, BID ceFAZolin IV 2 gram in dextrose (RTU), 2 g, intravenous, Q8H cholecalciferol (Vitamin D3) (VITAMIN D-3) tablet 1,000 Units, 1,000 Units, oral, DAILY dextrose 5%-NaCl 0.45% IV infusion, 50 mL/hr, intravenous, CONTINUOUS dextrose 50 % in water IV 25 mL, 25 mL, intravenous, PRN fluticasone (FLONASE) 50 mcg/actuation nasal spray 1 spray, 1 spray, both nostrils, BID PRN folic acid (FOLVITE) tablet 0.4 mg, 400 mcg, oral, DAILY glucagon (GLUCAGEN) injection 1 mg, 1 mg, intramuscular, PRN glucose chewable tablet 16 g, 16 g, oral, PRN heparin, porcine (PF) injection 5,000 Units, 5,000 Units, subcutaneous, Q8H insulin lispro (HUMALOG) injection, , subcutaneous, MEALS and HS multivitamin (THERA VITAMIN) 1 tablet, 1 tablet, oral, DAILY polyethylene glycol (MIRALAX) packet 17 g, 17 g, oral, TID PRN senna-docusate (SENOKOT S) 8.6-50 mg 1 tablet, 1 tablet, oral, BID torsemide (DEMADEX) tablet 20 mg, 20 mg, oral, BID ( and ) warfarin (COUMADIN) tablet 2.5 mg, 2.5 mg, oral, QPM Vitals: Last 24 hour min/max Temp: 36.2 C (97.2 F) Temp Min: 36.2 C (97.2 F) Max: 36.7 C (98.1 F) Heart Rate: 72 Pulse Min: 72 Max: 80 Resp: 16 Resp Min: 16 Max: 16 BP: 104/45 BP Min: 91/63 Max: 119/36 SpO2: 97 % SpO2 Min: 95 % Max: 97 % Body mass index is 29.04 kg/m. Ins and Outs: Intake/Output Summary (Last 24 hours) at 06/16/18 1642 Last data filed at 06/16/18 1400 Gross per 24 hour Intake 350 ml Output 570 ml Net -220 ml Exam: General: Awake, alert and oriented. NAD. Well-appearing. Sitting up in a chair Neck: JVP 2cm above the clavicle sitting upright with HJR Cardiovascular: RRR, nl S1/S2, no murmurs Respiratory: A few crackles, greatest in the bases Abdomen: +BS, soft, non-tender, non-distended. Ext: warm, pulses present. Chronic venous stasis with 1+ edema Skin: no rashes or lesions Musculo: Right knee with bandaged incision and wound vac in place. No drains Laboratory Interpretation: CBC with diff last 72 hours (or 3 results) Recent Labs 06/14/18 0524 06/15/18 0704 WBC 12.05* 10.00 HB 9.9* 9.5* HCT 30.1* 28.8* PLT 186 216 NEUTROPERC -- 66.7 LYMPHPERC -- 21.4 MONOPERC -- 10.5* BASOPERC -- 0.2 EOSPERC -- 0.7* Chemistries last 72 Hours (or 3 results): Recent Labs 06/14/18 1800 06/15/18 0704 06/16/18 0423 NA 135* 135* 135* K 4.1 4.0 3.7 CL 97 97 99 BICARB 34* 29 32 BUN 38* 44* 45* CR 2.17* 2.10* 2.03* CA 8.0* 8.2* 8.2* Liver panel last 72 hours (or 3 results) Recent Labs 06/14/18 0524 AST 26 ALT 29 TBILI 0.9 AP 42* ALB 2.1* TP 6.0* Micro: 06/12 Knee cx: Staph epidermidis Imaging: CXR today: Right upper extremity PICC obscured by pacer leads with tip in either t he mid or lower superior vena cava Assessment and plan: Júnior Mas is a 78 y.o. Male with history of CAD (s/p PCI x3, CABG x2) complicated by coke burner erich systolic heart failure (EF 45%) due to ICM, sinus node dysfunction s/p pacemaker placeme nt 2015, Afib,HLD, DM2 (a1c 6.2), CKD stage III (baseline Cr ~1.7), SEUN, severe cervical s tenosis, DVT, R knee OA s/p total knee replacement 2012, and chronic venous insufficiency, w ho was admitted from the ED to the medicine service on 06/11/2018 for management of a prosthe tic R knee joint infection s/p washout and polyethylene exchange. # Right prosthetic knee joint infection: # Patellar osteomyelitis due to Staph epidermidis: He underwent right knee washout with polyethylene exchange on 06/12 with retention of hardwa re. Cultures grew Staph epi. Per ID, he was transitioned from vancomycin to cefazolin with p lans for an 6 week course of therapy. Treatment failure is possible due to retained hardware and the patient understands that he may still require repeat surgery. PICC was placed today for antibiotic administration. -Cont cefazolin 2g IV q8hr (06/12-07/24)- pharmacy recommended q8 dosing due to CrCl -Cont Tylenol #3 1 tablet q6hr prn -Cont PT -Appreciate ID's assistance # Acute on chronic kidney injury stage III: He likely has CKD stage III with a baseline cre atinine of 1.7. His creatinine had been back to baseline before acutely rising to 2.17. Urin e sodium is 5 with FENa <1%, suggesting prerenal injury - likely either intravascular hypovo lemia or cardiorenal. He received a fluid bolus yesterday with modest improvement but his JV P is clearly elevated today. Will stop all IV fluids and restart his home torsemide. Will ne ed to monitor his creatinine closely. -Restart torsemide -Monitor creatinine closely with daily BMP # Chronic systolic heart failure # Ischemic cardiomyopathy: He has chronic systolic heart failure secondary to ICM. Patient is medically optimized on b eta afua, statin, aldosterone antagonist, without recent PATRICIA inbitor / ARB use given prog ressive renal dysfunction. He appears compensated but mildly volume overloaded today. Will r estart his home torsemide and monitor his renal function closely. -Restart torsemide 20mg BID -Cont carvedilol 12.5mg BID -Holding losartan -Holding spironolactone -Regular diet -Strict I/O's -daily weights # Diabetes Mellitus type 2: Non-insulin dependent diabetes. He uses metformin and glimepiri de at home. Hemoglobin A1c 6.2 suggesting good control at home. We are holding oral agents i n the hospital and covering with sliding scale. -Cont sliding scale insulin -Hold oral agents # Normocytic Anemia:Acute to subacute, mild, normocytic. Suspect anemia of inflammation. -Recheck CBC tomorrow # Bilateral LE edema: He has evidence of chronic venous insufficiency and may have some deg ree of chronic edema related to heart failure. -Cont compression wraps -Restart torsemide as above # History of DVT:Provoked DVT in 2012, but he has been on warfarin since that time. Held for surgery. Unclear if thereis an additional indication for warfarin as provoked DVT woul d have only required 3-6 months of therapy. There is some chart history of Afib, so perhaps that is the indication. ECG here shows sinus rhythm. Ortho not planning any additional proce dures so have restarted warfarin. Will defer need for long-term therapy to PCP. -Cont warfarin for INR 2-3 -Cont SC heparin (prophy dosing) until INR therapeutic -Daily INR # CAD: Stable with no evidence of acute ischemia. He does not appear to have been on either an aspirin or a statin as an outpatient. Will clarify with the patient and pharmacy tomorro w. # SEUN:Noncompliant with BiPAP. # Gout:No evidence of an acute gout flare. -Cont allopurinol 300 mg daily Dispo: Anticipate discharge tomorrow to [facility] bed [facility] if renal function is s table Code status: Full code Diet: Regular diet Prophy: warfarin and heparin Ann Mahmood MD [employer] Straightenercement finisher Clinical Hospitalist and Medicine Teaching Services [facility] Pager [phone] Suggested CPT: 12193 Subsequent Visit Detailed/High complexity 35 min I spent 37 minutes [id number] with the patient of which 78% was spent counseling the kassy ent about his infection, kidneys and heart and talking about discharge plans, and in coordin ation of care with nursing, pharmacy and case management. Elias Neville MD - 9:24 AM PDT Orthopaedic Surgery Progress Note Date: 06/16/2018 Hospital Day: 5 Orthopaedic Attending: Ghassan Sherman MD Diagnosis(es): Right total knee prosthetic joint infection. Orthopaedic Procedure(s) & Date(s): 06/13/2018 1. Right knee arthrotomy with drainage for infection and polyethylene exchange 2. Application TINO disposible negative pressure wound therapy dressing right knee [id number] Subjective: Doing ok overall. No CP/SOB. Tolerating PO. Up to bedside chair Objective: 24 hour Vitals: Temp Av.4 C (97.6 F) Min: 36.2 C (97.2 F) Max: 36.7 C (98.1 F) Systolic (24hrs), Av , Min:91 , Max:119 Diastolic (24hrs), Av, Min:36, Max:63 Pulse Av.5 Min: 72 Max: 80 SpO2 Av.3 % Min: 95 % Max: 97 % Lab Results Component Value Date HCT 28.8 06/15/2018 HCT 30.1 06/14/2018 HCT 35.2 06/13/2018 Lab Results Component Value Date WBC 10.00 06/15/2018 HB 9.5 06/15/2018 HCT 28.8 06/15/2018 PLT 216 06/15/2018 MCV 92.9 06/15/2018 RDW 61.3 06/15/2018 Lab Results Component Value Date NA 135 06/16/2018 K 3.7 06/16/2018 CL 99 06/16/2018 BICARB 32 06/16/2018 BUN 45 06/16/2018 EGFRAFRICAN 38 06/16/2018 EGFRNONAFR 32 06/16/2018 CR 2.03 06/16/2018 GLU 123 06/16/2018 CA 8.2 06/16/2018 ANIONGAP 4 06/16/2018 ANIONALBCOR 8 06/14/2018 Intake/Output Summary (Last 24 hours) at 06/16/18 0924 Last data filed at 06/16/18 0635 Gross per 24 hour Intake 525 ml Output 570 ml Net -45 ml Drains: 110ml/24hr Exam: General: appropriate, oriented RIGHT LOWER EXTREMITY: Inspection: Some strikethrough on TINO --minimal change from previous exam.. Holding sucti on. Hemovac no longer in place. Palpation: unremarkable Motor: fires tibialis anterior, fires gastrocsoleus complex, fires EHL, fires FHL, fire s quads, fires hamstrings Sensory: grossly intact to light touch, neuropathy baseline "whole foot is numb" (per rocael chris). Unchanged sensation to deep/superficial peroneal, lateral/medial plantar distributio ns Vascular: digits warm & well perfused, capillary refill < 2 seconds Assessment & Plan: Júnior Mas is a 78 y.o.M with the orthopaedic diagnoses and procedures listed above. Today's specific concerns include: Painful, but recovering well. Drain pulled yesterday. No one from orthopedic trauma team pulled yesterday, however, we were planning to pull today. Waiting for final ID recs and PICC placement Appreciate CHS and ID help in managing this complex patient. Care Protocol Items: 1. Activity: 1. Weight bearing: weight bearing as tolerated, right upper extremity 2. ROM: as tolerated, motion encouraged 2. VTE prophylaxis: high risk, warfarin, titrate to goal INR 2-3, with pharmacist consult, bridging with heparin 5000u SC TID until reaches therapeutic level, sequential compression d evices 3. Pain management: oral analgesia and IV analgesia, wean as possible 4. Antibiotics: vancomycin, until ID narrows 5. Special Concerns: Will ask ortho team if ok for patient to follow up closer to home as t ransporting back to [place] may present the patient and family undo hardship. 6. Dressings/Drains: Pulled yesterday? 7. Dispo/Discharge: Anticipate discharge to SNF in next 1-3 days if all criteria met. 8. Follow-up: Please call the clinic to make a follow up appointment in approximately 2 wee ks with ORTHO TRAUMA & FRACTURE, . AP and lateral of R knee at that time. Elias Soriano MD [facility] Department of Orthopaedics and Rehabilitation PGY-1 Pager [phone] atel, Tanvir - 06/16/2018 8:20 AM PDT INPATIENT INFECTIOUS DISEASE PROGRESS NOTE ID TEAM: B Patient: Júnior Mas PCP: Gilma Estrada MD Author: Tanvir Ayala Date of Admission: 06/11/2018 Hospital Day: 5 Chief Complaint: Pyogenic arthritis of right knee joint, due to unspecified organism (HCC) ASSESSMENT AND PLAN Assessment: Mr. 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 He is now s/p I&D and polyethylene lini er exchange with hardware retention. Clinically, the patient is improving upon administratio n of IV antibiotics, and will likely require 6 weeks of IV Cefazolin from the date of his I& D (06/12). It was discussed with the patient the possibility of treatment failure given the o ne-stage partial revision and retained hardware. The patient does live [place] half hours away from [place]. At this time, we are unsur e of his ability to follow up with an OPAT clinic or if there is a provider near [place], where the patient resides. If this is not feasible, we can consider home administration give n he has home support to accommodate this. If this is the case, he may benefit from Ceftriax one 2g q24hrs. Problem list: Principal Problem: Pyogenic arthritis of right knee joint, due to unspecified organism (HCC) Active Problems: Pyogenic arthritis of right knee joint (HCC) Coronary artery disease involving coronary bypass graft without angina pectoris Hypertension Ischemic cardiomyopathy Systolic heart failure (HCC) Obstructive sleep apnea Atrial fibrillation (HCC) Hyperlipidemia Heart block Pacemaker-dependent due to [place] cardiac rhythm insufficient to support life 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) Morbid obesity (HCC) CKD (chronic kidney disease), stage III 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 (HCC) Chronic anticoagulation Septic arthritis of knee, right (HCC) Recommendations: 1. Cont. Cefazolin 2g IV q12 hours, with renal adjustments as required 2. Tentative duration of Cefazolin will be 6 weeks from the time of surgery (06/12) 3. Discussed with patient that OPAT can cont. at his SNF. 4. If SNF is unable to administer Abx therapy q12 hours, can switch patient to ceftriaxone q24. Recommendations were communicated directly to the primary team. This [facility] Villalobos, who agrees with the above assessment and plan unless otherwise documented. Tanvir Ayala [facility] P SUBJECTIVE Interval Events: No acute events overnight S: patient reports he is feeling well this morning. States he was able to meet with a counter caser and had decided to go to a SNF while receiving antibiotics, much to his dismay. Denied: Fevers/Chills N/V/D Abdominal Pain SOB/Cough/Chest pain OBJECTIVE Physical exam: Last Vitals: BP 98/44 | Pulse 72 | Temp 36.7 C (98.1 F) | RR 16 | Ht 1.702 m (5' 7") | Wt 84.1 kg (185 lb 6.5 oz) | SpO2 95% | BMI 29.04 kg/(m^2) 24 Hour Vital Min/Max: Systolic (24hrs), Av , Min:98 , Max:119 Diastolic (24hrs), Av, Min:36, Max:55 Pulse Min: 72 Max: 90 Temp Min: 36.3 C (97.3 F) Max: 36.7 C (98.1 F) Resp Min: 16 Max: 16 SpO2 Min: 95 % Max: 97 % Intake/Output Summary (Last 24 hours) at 06/16/18 0820 Last data filed at 06/16/18 0635 Gross per 24 hour Intake 525 ml Output 570 ml Net -45 ml General: NAD, sitting in chair, eating breakfast HEENT: No scleral icterus, no conjunctival injection. Normal oral mucosa. Respiratory: Normal respiratory effort; clear to auscultation bilaterally; no wheezes, no c rackles. Cardiovascular: Regular Rhythm, normal rate; no murmurs; peripheral pulses are symmetric. GI: Soft,nontender, non-distended; normal bowel sounds. Extremities: Full ROM, no edema. Knee with bandaging covering incision. c/w/I. Pigtail drai n removed Lymph Nodes: no appreciable lymphadenopathy Skin: no rashes Neuro: Alert, oriented x 3, no focal neurological deficits Lines: peripherals IV x 1. PICC x 1 Antimicrobial Medications Antibiotics Start Date Stop Date Comments: Cefazolin 2g IV 06/12/18 06/12/18 Zosyn 4.5 g IV 06/12/18 06/13/18 Vancomycin 1 g IV 06/12/18 06/12/18 Vancomycin 1250 mg 06/13/18 06/15/18 Cefazolin 2g IV 06/15/18 Microbiology Data: Source Date Results Tissue cultures 06/12 X 5 positive for staphylococcus epidermidis Body fluid culture 06/12 body fluid cultures x 1 positive for s. Epidermidis Blood cultures 06/11 blood cultures x 2 NGTD New Imaging Since Last ID Note: None Laboratory Data: Recent Labs 06/11/18 1812 06/13/18 0436 06/14/18 0524 06/15/18 0704 WBC 9.95 < > 11.11* 12.05* 10.00 RBC 3.44* < > 3.80* 3.23* 3.10* HB 10.8* < > 11.7* 9.9* 9.5* HCT 31.7* < > 35.2* 30.1* 28.8* PLT 188 < > 136* 186 216 NEUTROPERC 65.9 -- -- -- 66.7 LYMPHPERC 21.3 -- -- -- 21.4 MONOPERC 11.4* -- -- -- 10.5* BASOPERC 0.3 -- -- -- 0.2 EOSPERC 0.3* -- -- -- 0.7* < > = values in this interval not displayed. Recent Labs 06/14/18 1800 06/15/18 0704 06/15/18 1852 06/15/18 2226 06/16/18 0423 NA 135* -- 135* -- -- -- 135* K 4.1 -- 4.0 -- -- -- 3.7 CL 97 -- 97 -- -- -- 99 BICARB 34* -- 29 -- -- -- 32 BUN 38* -- 44* -- -- -- 45* CR 2.17* -- 2.10* -- -- -- 2.03* GLU 192* < > 118* < > 264* 208* 122* CA 8.0* -- 8.2* -- -- -- 8.2* < > = values in this interval not displayed. Lab Results Lab Test Name Results Date/Time AST 26 06/14/18 ALT 29 06/14/18 AP 42 06/14/18 TBILI 0.9 06/14/18 TP 6.0 06/14/18 ALB 2.1 06/14/18 Lab Results Lab Test Name Results Date/Time APTT 36.5 06/11/18 Lab Results Lab Test Name Value Date ESR 87 06/11/2018 Lab Results Lab Test Name Value Date CRP 143.0 06/11/2018 Medications: Current Facility-Administered Medications Medication Dose Route Frequency acetaminophen-codeine (TYLENOL #3) 300-30 mg 1 tablet 1 tablet oral Q6H PRN allopurinol (ZYLOPRIM) tablet 300 mg 300 mg oral DAILY bisacodyl (DULCOLAX) suppository 10 mg 10 mg rectal DAILY PRN carvedilol (COREG) tablet 12.5 mg 12.5 mg oral BID ceFAZolin IV 2 gram in dextrose (RTU) 2 g intravenous Q8H cholecalciferol (Vitamin D3) (VITAMIN D-3) tablet 1,000 Units 1,000 Units oral DAILY dextrose 5%-NaCl 0.45% IV infusion 50 mL/hr intravenous CONTINUOUS dextrose 50 % in water IV 25 mL 25 mL intravenous PRN fluticasone (FLONASE) 50 mcg/actuation nasal spray 1 spray 1 spray both nostrils BID P RN folic acid (FOLVITE) tablet 0.4 mg 400 mcg oral DAILY glucagon (GLUCAGEN) injection 1 mg 1 mg intramuscular PRN glucose chewable tablet 16 g 16 g oral PRN heparin, porcine (PF) injection 5,000 Units 5,000 Units subcutaneous Q8H insulin lispro (HUMALOG) injection subcutaneous MEALS and HS multivitamin (THERA VITAMIN) 1 tablet 1 tablet oral DAILY polyethylene glycol (MIRALAX) packet 17 g 17 g oral TID PRN senna-docusate (SENOKOT S) 8.6-50 mg 1 tablet 1 tablet oral BID warfarin (COUMADIN) tablet 5 mg 5 mg oral QPM Stephan Aguirre MD - 06/15/2018 8:18 AM PDT HOSPITALIST INPATIENT PROGRESS NOTE Author: Dona Mercado MD PCP: Gilma Estrada MD Hospital Day:4 ID:This is an 78 y/o man with a history of CAD (s/p PCI x3, CABG x2) c/b ICM with chronic systolic heart failure (EF 45%), sinus node dysfunction s/p pacemaker placement 2015, Afib, HLD, DM2 (a1c 6.2), CKD (baseline Cr ~1.7), SEUN, severe cervical stenosis, hx of DVT 2013 now on chronic AC, R knee OA s/p total knee replacement 2012, and chronic venous insufficien cy, who was admitted from the ED to the medicine service on 06/11/2018 for management of a pr osthetic R knee joint infection (S epi), now s/p washout and polyethylene exchange. 24h Events: - urine output low yesterday with rising SCr Subj:Pt feels well today. Looking forward to continuing rehab and getting his strength ba ck. Does not like the food here. Current Medications: acetaminophen-codeine (TYLENOL #3) 300-30 mg 1 tablet, 1 tablet, oral, Q6H PRN allopurinol (ZYLOPRIM) tablet 300 mg, 300 mg, oral, DAILY bisacodyl (DULCOLAX) suppository 10 mg, 10 mg, rectal, DAILY PRN carvedilol (COREG) tablet 12.5 mg, 12.5 mg, oral, BID cholecalciferol (Vitamin D3) (VITAMIN D-3) tablet 1,000 Units, 1,000 Units, oral, DAILY dextrose 5%-NaCl 0.45% IV infusion, 50 mL/hr, intravenous, CONTINUOUS dextrose 50 % in water IV 25 mL, 25 mL, intravenous, PRN fluticasone (FLONASE) 50 mcg/actuation nasal spray 1 spray, 1 spray, both nostrils, BID PRN folic acid (FOLVITE) tablet 0.4 mg, 400 mcg, oral, DAILY glucagon (GLUCAGEN) injection 1 mg, 1 mg, intramuscular, PRN glucose chewable tablet 16 g, 16 g, oral, PRN heparin, porcine (PF) injection 5,000 Units, 5,000 Units, subcutaneous, Q8H insulin lispro (HUMALOG) injection, , subcutaneous, MEALS and HS multivitamin (THERA VITAMIN) 1 tablet, 1 tablet, oral, DAILY polyethylene glycol (MIRALAX) packet 17 g, 17 g, oral, TID PRN senna-docusate (SENOKOT S) 8.6-50 mg 1 tablet, 1 tablet, oral, BID vancomycin (VANCOCIN) IV 1,250 mg, 1,250 mg, intravenous, Q24H warfarin (COUMADIN) tablet 5 mg, 5 mg, oral, QPM Vitals: Last Vitals: BP 129/57 | Pulse 92 | Temp 36.8 C (98.2 F) | RR 16 | Ht 1.702 m (5' 7") | Wt 84.1 kg (185 lb 6.5 oz) | SpO2 96% | BMI 29.04 kg/(m^2) 24 Hour Vital Min/Max: Systolic (24hrs), Av , Min:113 , Max:131 Diastolic (24hrs), Av, Min:42, Max:57 Pulse Av.3 Min: 69 Max: 100 Temp Av.1 C (98.8 F) Min: 36.8 C (98.2 F) Max: 37.4 C (99.3 F) Resp Av.3 Min: 16 Max: 17 SpO2 Av.9 % Min: 90 % Max: 100 % Ins and Outs: Intake/Output Summary (Last 24 hours) at 06/15/18 08 Last data filed at 06/15/18 0646 Gross per 24 hour Intake 1428 ml Output 755 ml Net 673 ml Exam: General: Awake, alert and oriented. NAD Cardiovascular: normal rate, regular rhythm, distant heart sounds; JVP ~ 6-8 cm H2O with re spiratory variation Respiratory: CTAB anteriorly Abdomen: +BS, soft, non-tender, non-distended. No hepatosplenomegaly. Ext: warm, pulses present. Chronic venous stasis changes are present bilaterally with 1+ pitting edema Skin: R knee with overlying incision with wound vac and drain in place Basic Labs: CBC with diff last 72 hours (or 3 results) Recent Labs 06/13/18 0436 06/14/18 0524 06/15/18 0704 WBC 11.11* 12.05* 10.00 HB 11.7* 9.9* 9.5* HCT 35.2* 30.1* 28.8* PLT 136* 186 216 NEUTROPERC -- -- 66.7 LYMPHPERC -- -- 21.4 MONOPERC -- -- 10.5* BASOPERC -- -- 0.2 EOSPERC -- -- 0.7* Chemistries last 72 Hours (or 3 results): Recent Labs 06/12/18 1627 06/12/18 2224 06/14/18 0524 06/14/18 1800 06/15/18 0704 NA 138 139 < > 136 135* 135* K 3.6 3.7 < > 3.6 4.1 4.0 CL 100 100 < > 98 97 97 BICARB 34* 33* < > 34* 34* 29 BUN 30* 28* < > 23* 38* 44* CR 1.63* 1.55* < > 2.08* 2.17* 2.10* CA 8.6 8.6 < > 8.0* 8.0* 8.2* MG -- 1.8 -- -- -- -- PO4 3.7 -- -- -- -- -- < > = values in this interval not displayed. Liver panel last 72 hours (or 3 results) Recent Labs 06/12/18 2224 06/13/18 0436 06/14/18 0524 AST 40 60* 26 ALT 52 48 29 TBILI 1.0 1.1 0.9 AP 48* 44* 42* ALB 2.6* 2.3* 2.1* TP 6.9 6.6 6.0* Micro: Blood cx x2 (06/11): NGTD. Tissue cx (06/12): Staphylococcus epidermidis (no sensitivity data available yet) Imaging:No new. Assessment and plan:This is an 78 y/o man with a history of CAD (s/p PCI x3, CABG x2) c/b ICM with chronic systolic heart failure (EF 45%), sinus node dysfunction s/p pacemaker plac ement 2015, Afib,HLD, DM2 (a1c 6.2), CKD (baseline Cr ~1.7), SEUN, severe cervical stenosis , hx of DVT 2013 now on chronic AC, R knee OA s/p total knee replacement 2012, and chronic v enous insufficiency, who was admitted from the ED to the medicine service on 06/11/2018 for m anagement of a prosthetic R knee joint infection (S epi), now s/p washout and polyethylene e xchange. #R prosthetic knee joint infection - Now s/p right knee washout with polyethylene exchange on 06/12. Culture data showing Staph epi, no sensitivities yet. Will continue vancomycin for now pending culture data. Once we have that information we can talk to ID about optimal agen t and duration of therapy (anticipate 6 weeks of IV antibiotics from date of surgery [06/12]) . - follow-up sensitivity data - cont vanco for now - acetaminophen prn pain - oxycodone 2.5-5 mg PO q6H prn pain - PT - will need PICC placement prior to DC for long-term IV antibiotics #Kidney injury - Acute on chronic (baseline Cr ~1.7 best I can tell from [facility]). H ad been back to baseline, but another bump over past 2 days with decreasing urine output. Ur ine sodium is 5 with FENa <1%, suggesting prerenal injury - likely either intravascular hypo volemia or cardiorenal (we have been holding diuretics). On exam, JVP does not appear low, b ut it is not elevated either. And the patient has not had robust PO intake after surgery. Gi yayo these finding, I think intravascular hypovolemia is most likely. Will give a small bolus of crystalloid today and encourage PO intake. - encourage PO intake (will liberalize diet from diabetic [with fluid/Na restriction] to r egular) - 500 ml LR bolus today - daily BMP #Heart failure -Chronic systolic heart failure 2/2 ICM. Currently compensated. Patient is medically optimized on beta afua, statin, aldosterone antagonist, without recent PATRICIA inb itor / ARB use given progressive renal dysfunction. Also uses torsemide 20 mg bid at home. W ill likely need to restart diuretics once patient begins taking in more PO. - Lift Na/fluid restriction today - daily weights, strict I/Os - hold diuretics for now (torsemide, spironolactone) - cont carvedilol 12.5 mg bid - no PATRICIA/ARB given renal dysfunction #DM2 - Non-insulin dependent. Pt uses metformin and glimepiride at home. Hemoglobin a1c 6.2 suggesting good control at home. - liberalize diet to encourage PO intake - hold oral agents while inhouse - ISS (moderate) #Anemia -Acute to subacute, mild, normocytic. Suspect anemia of inflammation. - monitor #Bilateral LE edema- Chronic. Likely combination of heart failure and venous insufficienc y.Holding torsmide and lower extremity compression wraps after recent infections. - hold torsmide for now as per above - will likely need torestart prior to discharge - hold compression wraps in perioperative period, will likely n eed restart prior to discharge #Hx of DVT -Provoked (occurred at time of 2012 R TKA). Has been on warfarin since that ti me. Held for surgery. Unclear if there is an additional indication for warfarin as provoked DVT would have only required 3-6 months of therapy. There is some chart history of Afib, so perhaps that is the indication. ECG here shows sinus rhythm. Ortho not planning any addition al procedures so have restarted warfarin. Will defer need for long-term therapy to PCP. - warfarin for INR 2-3 - cont SC heparin (prophy dosing) until INR therapeutic - daily INR #CAD - Stable. - cont ASA, statin #SEUN -Noncompliant with BiPAP. #Gout -No acute concerns. - cont allopurinol 300 mg daily Diet:Regular to encourage PO intake (had been on diabetic diet with Na/fluid restriction) Prophy:SC hep + warfarin FEN/GI:no issues Lines:PIVs Code status: full Dispo:I think he will be medically ready for SNF in the next 24-72H. I have alerted CM. Dona Mercado MD Division of Hospital Medicine [facility] Pager [phone] I spent more than 35 minutes [id number] with the patient of which greater than 50% was sp ent counseling the patient or in coordination of care. Sisi Mayen A GACNP - 06/15/2018 7:40 AM PDT Orthopaedic Surgery Progress Note Date: 06/15/2018 Hospital Day: 4 Orthopaedic Attending: Ghassan Sherman MD Diagnosis(es): Right total knee prosthetic joint infection. Orthopaedic Procedure(s) & Date(s): 06/13/2018 1. Right knee arthrotomy with drainage for infection and polyethylene exchange 2. Application TINO disposible negative pressure wound therapy dressing right knee [id number] Subjective: Doing ok overall, not too much pain in right knee. 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, "My wants to get back home." Objective: 24 hour Vitals: Temp Av.1 C (98.8 F) Min: 36.8 C (98.2 F) Max: 37.4 C (99.3 F) Systolic (24hrs), Av , Min:113 , Max:131 Diastolic (24hrs), Av, Min:42, Max:57 Pulse Av.3 Min: 69 Max: 100 SpO2 Av.9 % Min: 90 % Max: 100 % Lab Results Component Value Date HCT 30.1 06/14/2018 HCT 35.2 06/13/2018 HCT 34.2 06/12/2018 Lab Results Component Value Date WBC 12.05 06/14/2018 HB 9.9 06/14/2018 HCT 30.1 06/14/2018 PLT 186 06/14/2018 MCV 93.2 06/14/2018 RDW 61.1 06/14/2018 Lab Results Component Value Date NA 135 06/15/2018 K 4.0 06/15/2018 CL 97 06/15/2018 BICARB 29 06/15/2018 BUN 44 06/15/2018 EGFRAFRICAN 37 06/15/2018 EGFRNONAFR 31 06/15/2018 CR 2.10 06/15/2018 GLU 118 06/15/2018 CA 8.2 06/15/2018 ANIONGAP 9 06/15/2018 ANIONALBCOR 8 06/14/2018 Intake/Output Summary (Last 24 hours) at 06/15/18 0741 Last data filed at 06/15/18 0646 Gross per 24 hour Intake 1428 ml Output 755 ml Net 673 ml Drains: 110ml/24hr Exam: General: appropriate, oriented RIGHT LOWER EXTREMITY: Inspection: Some strikethrough on TINO. Holding suction. Drain in place with serosanguinou s output. Palpation: unremarkable Motor: fires tibialis anterior, fires gastrocsoleus complex, fires EHL, fires FHL, fire s quads, fires hamstrings Sensory: grossly intact to light touch, neuropathy baseline "whole foot is numb" (per rocael chris) Vascular: digits warm & well perfused, capillary refill < 2 seconds Assessment & Plan: Júnior Mas is a 78 y.o.M with the orthopaedic diagnoses and procedures listed above. Today's specific concerns include: Painful, but recovering well. Will maintain drain another day. Patient should mobilize t kd with PT. Waiting for final ID recs and PICC placement Appreciate CHS and ID help in managing this complex patient. Care Protocol Items: 1. Activity: 1. Weight bearing: weight bearing as tolerated, right upper extremity 2. ROM: as tolerated, motion encouraged 2. VTE prophylaxis: high risk, warfarin, titrate to goal INR 2-3, with pharmacist consult, bridging with heparin 5000u SC TID until reaches therapeutic level, sequential compression d evices 3. Pain management: oral analgesia and IV analgesia, wean as possible 4. Antibiotics: vancomycin, until ID narrows 5. Special Concerns: Will ask ortho team if ok for patient to follow up closer to home as t ransporting back to [place] may present the patient and family undo hardship. 6. Dressings/Drains: Continue drain 7. Dispo/Discharge: Anticipate discharge to SNF in next 1-3 days if all criteria met. 8. Follow-up: Please call the clinic to make a follow up appointment in approximately 2 wee ks with ORTHO TRAUMA & FRACTURE, . AP and lateral of R knee at that time. Sisi Pablo [facility] Orthopaedic Trauma Surgery Pager [phone] Stephan Aguirre MD - 06/14/2018 8:59 AM PDT HOSPITALIST INPATIENT PROGRESS NOTE Author: Dona Mercado MD PCP: Gilma Estrada MD Hospital Day:3 ID:This is an 78 y/o man with a history of CAD (s/p PCI x3, CABG x2) c/b ICM with chronic systolic heart failure (EF 45%), sinus node dysfunction s/p pacemaker placement 2015, Afib, HLD, DM2 (a1c 6.2), CKD (baseline Cr ~1.7), SEUN, severe cervical stenosis, hx of DVT 2013 now on chronic AC, R knee OA s/p total knee replacement 2012, and chronic venous insufficien cy, who was admitted from the ED to the medicine service on 06/11/2018 for management of a se ptic prosthetic R knee joint. 24h Events: - Staph epi growing from intraop cultures - pip/marquez stopped, vancomycin continued Subj:Pain is well managed. No other issues. Current Medications: acetaminophen-codeine (TYLENOL #3) 300-30 mg 1 tablet, 1 tablet, oral, Q6H PRN allopurinol (ZYLOPRIM) tablet 300 mg, 300 mg, oral, DAILY bisacodyl (DULCOLAX) suppository 10 mg, 10 mg, rectal, DAILY PRN carvedilol (COREG) tablet 12.5 mg, 12.5 mg, oral, BID cholecalciferol (Vitamin D3) (VITAMIN D-3) tablet 1,000 Units, 1,000 Units, oral, DAILY dextrose 5%-NaCl 0.45% IV infusion, 50 mL/hr, intravenous, CONTINUOUS dextrose 50 % in water IV 25 mL, 25 mL, intravenous, PRN fluticasone (FLONASE) 50 mcg/actuation nasal spray 1 spray, 1 spray, both nostrils, BID PRN folic acid (FOLVITE) tablet 0.4 mg, 400 mcg, oral, DAILY glucagon (GLUCAGEN) injection 1 mg, 1 mg, intramuscular, PRN glucose chewable tablet 16 g, 16 g, oral, PRN heparin, porcine (PF) injection 5,000 Units, 5,000 Units, subcutaneous, Q8H insulin lispro (HUMALOG) injection, , subcutaneous, MEALS and HS multivitamin (THERA VITAMIN) 1 tablet, 1 tablet, oral, DAILY polyethylene glycol (MIRALAX) packet 17 g, 17 g, oral, TID PRN senna-docusate (SENOKOT S) 8.6-50 mg 1 tablet, 1 tablet, oral, BID simvastatin (ZOCOR) tablet 40 mg, 40 mg, oral, QPM vancomycin (VANCOCIN) IV 1,250 mg, 1,250 mg, intravenous, Q24H Vitals: Last Vitals: BP 118/51 | Pulse 90 | Temp 36.7 C (98.1 F) | RR 16 | Ht 1.702 m (5' 7") | Wt 94.2 kg (207 lb 10.8 oz) | SpO2 100% | BMI 32.53 kg/(m^2) 24 Hour Vital Min/Max: Systolic (24hrs), Av , Min:118 , Max:132 Diastolic (24hrs), Av, Min:48, Max:58 Pulse Av.2 Min: 87 Max: 100 Temp Av.9 C (98.5 F) Min: 36.7 C (98.1 F) Max: 37.3 C (99.1 F) Resp Av.3 Min: 16 Max: 18 SpO2 Av.5 % Min: 96 % Max: 100 % Ins and Outs: Intake/Output Summary (Last 24 hours) at 06/14/18 0859 Last data filed at 06/14/18 0446 Gross per 24 hour Intake 360 ml Output 715 ml Net -355 ml Exam: General: Awake, alert and oriented. NAD Cardiovascular: normal rate, regular rhythm, distant heart sounds; JVP ~ 12 cm H2O with res piratory variation Respiratory: CTAB anteriorly Abdomen: +BS, soft, non-tender, non-distended. No hepatosplenomegaly. Ext: warm, pulses present. Chronic venous stasis changes are present bilaterally with 1+ pitting edema Skin: R knee with overlying incision with wound vac and drain in place Basic Labs: CBC with diff last 72 hours (or 3 results) Recent Labs 06/11/18 1812 06/12/18 2223 06/13/18 0436 06/14/18 0524 WBC 9.95 11.67* 11.11* 12.05* HB 10.8* 11.4* 11.7* 9.9* HCT 31.7* 34.2* 35.2* 30.1* PLT 188 216 136* 186 NEUTROPERC 65.9 -- -- -- LYMPHPERC 21.3 -- -- -- MONOPERC 11.4* -- -- -- BASOPERC 0.3 -- -- -- EOSPERC 0.3* -- -- -- Chemistries last 72 Hours (or 3 results): Recent Labs 06/12/18 1627 06/12/18 2224 06/13/18 0436 06/14/18 0524 NA 138 139 136 136 K 3.6 3.7 4.4 3.6 CL 100 100 103 98 BICARB 34* 33* 25 34* BUN 30* 28* 27* 23* CR 1.63* 1.55* 1.66* 2.08* CA 8.6 8.6 8.2* 8.0* MG -- 1.8 -- -- PO4 3.7 -- -- -- Liver panel last 72 hours (or 3 results) Recent Labs 06/12/18 2224 06/13/18 0436 06/14/18 0524 AST 40 60* 26 ALT 52 48 29 TBILI 1.0 1.1 0.9 AP 48* 44* 42* ALB 2.6* 2.3* 2.1* TP 6.9 6.6 6.0* Micro: Blood cx x2 (06/11): In process. Imaging: X-ray R knee (06/11): IMPRESSION: Moderate suprapatellar joint effusion, representing known septic effusion given recent aspiration. Discussed with Dr. Valle at time of dictation. Assessment and plan:This is an 78 y/o man with a history of CAD (s/p PCI x3, CABG x2) c/b ICM with chronic systolic heart failure (EF 45%), sinus node dysfunction s/p pacemaker plac ement 2015, Afib,HLD, DM2 (a1c 6.2), CKD (baseline Cr ~1.7), SEUN, severe cervical stenosis , hx of DVT 2013 now on chronic AC, R knee OA s/p total knee replacement 2012, and chronic v enous insufficiency, who was admitted from the ED to the medicine service on 06/11/2018 for m anagement of a septic prosthetic R knee joint. #R knee arthritis - Acute, inflammatory, with 72K WBCs in synovial fluid. Now s/p right kne e washout with polyethylene exchange on 06/12. Culture data showing Staph epi, no sensitiviti es yet. Will continue vancomycin for now pending culture data. Once we have that information we can talk to ID about agent and duration of therapy (anticipate 6 weeks of IV antibiotics from date of surgery [06/12]). - follow-up sensitivity data - cont vanco for now - acetaminophen prn pain - oxycodone 2.5-5 mg PO q6H prn pain - PT - will need PICC placement prior to DC #Heart failure -Chronic systolic heart failure 2/2 ICM. Currently compensated, though JVP is trending up. Patient is medically optimized on beta afua, statin, aldosterone antagon ist, without recent PATRICIA inbitor / ARB use given progressive renal dysfunction. Also uses tor semide 20 mg bid at home. Will likely need to restart diuretics once patient begins taking i n more PO. - Na/fluid restriction, daily weights, strict I/Os - no diuretics for now (torsemide, spironolactone) - cont carvedilol 12.5 mg bid - no PATRICIA/ARB given renal dysfunction #DM2 - Non-insulin dependent. Pt uses metformin and glimepiride at home. Hemoglobin a1c 6.2 suggesting good control at home. - diabetic diet - hold oral agents while inhouse - ISS (moderate) #Kidney injury - Acute on chronic (baseline Cr ~1.7 best I can tell from [facility]where). H ad been back to baseline, but another bump this morning. Could be vanc related. Will monitor . - daily BMP #Anemia -Acute to subacute, mild, normocytic. Suspect anemia of inflammation. - monitor #Bilateral LE edema- Chronic. Likely combination of heart failure and venous insufficienc y.Holding torsmide and lower extremity compression wraps after recent infections. - hold torsmide in perioperative period - will likely need torestart prior to discharge - hold compression wraps in perioperative period, will likely n eed restart prior to discharge #Hx of DVT -Provoked (occurred at time of 2012 R TKA). Has been on warfarin since that ti me. Held for surgery. Unclear if there is an additional indication for warfarin as provoked DVT would have only required 3-6 months of therapy. There is some chart history of Afib, so perhaps that is the indication. ECG here shows sinus rhythm. Ortho not planning any addition al procedures so will restart warfarin and defer long-term therapy to PCP. - restart warfarin for INR 2-3 - cont SC heparin (prophy dosing) until INR therapeutic #CAD - Stable. - cont ASA, statin #SEUN -Noncompliant with BiPAP. #Gout -No acute concerns. - cont allopurinol 300 mg daily Diet:Diabetic diet with Na/fluid restriction Prophy:SC hep + warfarin FEN/GI:no issues Lines:PIVs Code status: full Dispo:no anticipated date of discharge at this time Dona Mercado MD Division of Hospital Medicine [facility] Pager [phone] I spent more than 35 minutes [id number] with the patient of which greater than 50% was sp ent counseling the patient or in coordination of care. Sebas Rodriguez M D - 06/14/2018 8:53 AM PDT Orthopaedic Surgery Progress Note Date: 06/14/2018 Hospital Day: 3 Orthopaedic Attending: Ghassan Sherman MD Diagnosis(es): Right total knee prosthetic joint infection. Orthopaedic Procedure(s) & Date(s): 06/13/2018 1. Right knee arthrotomy with drainage for infection and polyethylene exchange 2. Application TINO disposible negative pressure wound therapy dressing right knee [id number] Subjective: Pain improving in R knee. Objective: 24 hour Vitals: Temp Av.9 C (98.5 F) Min: 36.7 C (98.1 F) Max: 37.3 C (99.1 F) Systolic (24hrs), Av , Min:118 , Max:132 Diastolic (24hrs), Av, Min:48, Max:58 Pulse Av.2 Min: 87 Max: 100 SpO2 Av.5 % Min: 96 % Max: 100 % Lab Results Component Value Date HCT 30.1 06/14/2018 HCT 35.2 06/13/2018 HCT 34.2 06/12/2018 Lab Results Component Value Date WBC 12.05 06/14/2018 HB 9.9 06/14/2018 HCT 30.1 06/14/2018 PLT 186 06/14/2018 MCV 93.2 06/14/2018 RDW 61.1 06/14/2018 Lab Results Component Value Date NA 136 06/14/2018 K 3.6 06/14/2018 CL 98 06/14/2018 BICARB 34 06/14/2018 BUN 23 06/14/2018 EGFRAFRICAN 37 06/14/2018 EGFRNONAFR 31 06/14/2018 CR 2.08 06/14/2018 GLU 81 06/14/2018 CA 8.0 06/14/2018 ANIONGAP 4 06/14/2018 ANIONALBCOR 8 06/14/2018 Intake/Output Summary (Last 24 hours) at 06/14/18 0853 Last data filed at 06/14/18 0446 Gross per 24 hour Intake 360 ml Output 715 ml Net -355 ml Drains: 190 out overnight Exam: General: appropriate, oriented RIGHT LOWER EXTREMITY: Inspection: Some strikethrough on TINO. Holding suction. Drain in place with serosanguinou s output. Palpation: unremarkable Motor: fires tibialis anterior, fires gastrocsoleus complex, fires EHL, fires FHL, fire s quads, fires hamstrings Sensory: grossly intact to light touch, medial, lateral, dorsal, 1st dorsal web space, p lantar Vascular: digits warm & well perfused, capillary refill < 2 seconds Assessment & Plan: Júnior Mas is a 78 y.o.M with the orthopaedic diagnoses and procedures listed above. Today's specific concerns include: Painful, but recovering well. Will maintain drain today. Patient should mobilize today w ith PT. Cultures with GPC and staph epidermidis. Sensitivities pending. Care Protocol Items: 1. Activity: 1. Weight bearing: weight bearing as tolerated, right upper extremity 2. ROM: as tolerated, motion encouraged 2. VTE prophylaxis: high risk, lovenox SC 40mg daily or by weight, sequential compression d evices 3. Pain management: oral analgesia and IV analgesia, wean as possible 4. Antibiotics: vancomycin, until ID narrows 5. Special Concerns: 6. Dressings/Drains: Continue drain 7. Dispo/Discharge: Continue acute inpatient care 8. Follow-up: Please call the [facility], . AP and lateral of R knee at that time. SEBAS PLEITEZ MD Pager [phone] Stephan Aguirre M D - 06/13/2018 9:51 AM PDT HOSPITALIST INPATIENT PROGRESS NOTE Author: Dona Mercado MD PCP: Gilma Estrada MD Hospital Day:2 ID: This is an 78 y/o man with a history of CAD (s/p PCI x3, CABG x2) c/b ICM with chronic systolic heart failure (EF 45%), sinus node dysfunction s/p pacemaker placement 2015, Afib, HLD, DM2 (a1c 6.2), CKD (baseline Cr ~1.7), SEUN, severe cervical stenosis, hx of DVT 2013 no w on chronic AC, R knee OA s/p total knee replacement 2012, and chronic venous insufficiency , who was admitted from the ED to the medicine service on 06/11/2018 for management of a sept ic prosthetic R knee joint. 24h Events: - underwent right knee washout with polyethylene exchange - started on pip/marquez and vanco Subj: Pt has some pain around the R knee with movement. Well controlled with current pain r egimen. No new issues. Current Medications: acetaminophen (TYLENOL) tablet 650 mg, 650 mg, oral, Q6H PRN bisacodyl (DULCOLAX) suppository 10 mg, 10 mg, rectal, DAILY PRN carvedilol (COREG) tablet 12.5 mg, 12.5 mg, oral, BID cholecalciferol (Vitamin D3) (VITAMIN D-3) tablet 1,000 Units, 1,000 Units, oral, DAILY dextrose 5%-NaCl 0.45% IV infusion, 50 mL/hr, intravenous, CONTINUOUS dextrose 50 % in water IV 25 mL, 25 mL, intravenous, PRN folic acid (FOLVITE) tablet 0.4 mg, 400 mcg, oral, DAILY glucagon (GLUCAGEN) injection 1 mg, 1 mg, intramuscular, PRN glucose chewable tablet 16 g, 16 g, oral, PRN insulin lispro (HUMALOG) injection, , subcutaneous, MEALS and HS multivitamin (THERA VITAMIN) 1 tablet, 1 tablet, oral, DAILY oxyCODONE (immediate release) (ROXICODONE) tablet 2.5-5 mg, 2.5-5 mg, oral, Q6H PRN piperacillin-tazobactam (ZOSYN) IV (minibag+) 3.375 g, 3.375 g, intravenous, Q8H polyethylene glycol (MIRALAX) packet 17 g, 17 g, oral, TID PRN senna-docusate (SENOKOT S) 8.6-50 mg 1 tablet, 1 tablet, oral, BID simvastatin (ZOCOR) tablet 40 mg, 40 mg, oral, QPM vancomycin (VANCOCIN) IV 1,250 mg, 1,250 mg, intravenous, Q24H Vitals: Last Vitals: BP 139/63 | Pulse 170 | Temp 37.5 C (99.5 F) | RR 16 | Ht 1.702 m (5' 7") | Wt 86.7 kg (191 lb 1.6 oz) | SpO2 97% | BMI 29.93 kg/(m^2) 24 Hour Vital Min/Max: Systolic (24hrs), Av , Min:108 , Max:162 Diastolic (24hrs), Av, Min:47, Max:84 Pulse Av.2 Min: 77 Max: 170 Temp Av.2 C (98.9 F) Min: 36.6 C (97.9 F) Max: 37.7 C (99.9 F) Resp Av.4 Min: 11 Max: 31 SpO2 Av.3 % Min: 94 % Max: 100 % Ins and Outs: Intake/Output Summary (Last 24 hours) at 06/13/18 0951 Last data filed at 06/13/18 0843 Gross per 24 hour Intake 1625 ml Output 765 ml Net 860 ml Exam: General: Awake, alert and oriented. NAD Cardiovascular: normal rate, regular rhythm, distant heart sounds; JVP ~ 8 cmH2O with respi ratory variation Respiratory: CTAB anteriorly Abdomen: +BS, soft, non-tender, non-distended. No hepatosplenomegaly. Ext: warm, pulses present. Chronic venous stasis changes are present bilaterally with 1+ p itting edema Skin: R knee with overlying incision with wound vac and drain in place Basic Labs: CBC with diff last 72 hours (or 3 results) Recent Labs 06/11/18 1812 06/12/18 2223 06/13/18 0436 WBC 9.95 11.67* 11.11* HB 10.8* 11.4* 11.7* HCT 31.7* 34.2* 35.2* PLT 188 216 136* NEUTROPERC 65.9 -- -- LYMPHPERC 21.3 -- -- MONOPERC 11.4* -- -- BASOPERC 0.3 -- -- EOSPERC 0.3* -- -- Chemistries last 72 Hours (or 3 results): Recent Labs 06/12/18 1627 06/12/18 2224 06/13/18 0436 NA 138 139 136 K 3.6 3.7 4.4 CL 100 100 103 BICARB 34* 33* 25 BUN 30* 28* 27* CR 1.63* 1.55* 1.66* CA 8.6 8.6 8.2* MG -- 1.8 -- PO4 3.7 -- -- Liver panel last 72 hours (or 3 results) Recent Labs 06/12/18 1627 06/12/18 2224 06/13/18 0436 AST 46* 40 60* ALT 57 52 48 TBILI 1.0 1.0 1.1 AP 46* 48* 44* ALB 2.5* 2.6* 2.3* TP 7.0 6.9 6.6 Micro: Blood cx x2 (06/11): In process. Imaging: X-ray R knee (06/11): IMPRESSION: Moderate suprapatellar joint effusion, representing known septic effusion given recent aspiration. Discussed with Dr. Valle at time of dictation. Assessment and plan: This is an 78 y/o man with a history of CAD (s/p PCI x3, CABG x2) c/b ICM with chronic systolic heart failure (EF 45%), sinus node dysfunction s/p pacemaker place ment 2015, Afib, HLD, DM2 (a1c 6.2), CKD (baseline Cr ~1.7), SEUN, severe cervical stenosis, hx of DVT 2013 now on chronic AC, R knee OA s/p total knee replacement 2012, and chronic yayo ous insufficiency, who was admitted from the ED to the medicine service on 06/11/2018 for man agement of a septic prosthetic R knee joint. #R knee arthritis - Acute, inflammatory, with 72K WBCs in synovial fluid. Now s/p right kne e washout with polyethylene exchange. Culture data pending. Started on pip/marquez and vancomyci n following the procedure, which can be narrowed pending culture data. - follow-up outside records (synovial fluid Gram stain and culture) - follow-up intraoperative Gram stain and culture - cont pip/marquez + vanco for now, narrow when culture results return - acetaminophen prn pain - oxycodone 2.5-5 mg PO q6H prn pain #Heart failure - Chronic systolic heart failure 2/2 ICM. Currently compensated. Patient is medically optimized on beta afua, statin, aldosterone antagonist, without recent PATRICIA inbi tor / ARB use given progressive renal dysfunction. Also uses torsemide 20 mg bid at home. Wi ll likely need to restart diuretics once patient begins taking in more PO. - Na/fluid restriction, daily weights, strict I/Os - no diuretics for now (torsemide, spironolactone) - cont carvedilol 12.5 mg bid - no PATRICIA/ARB given renal dysfunction #DM2 - Non-insulin dependent. Pt uses metformin and glimepiride at home. Hemoglobin a1c 6.2 suggesting good control at home. - diabetic diet - hold oral agents while inhouse - ISS (moderate) #Kidney injury - Acute on chronic (baseline Cr ~1.7 best I can tell from [facility]where). N ow back to baseline. - daily BMP #Anemia - Acute to subacute, mild, normocytic. Suspect anemia of inflammation. - monitor #Bilateral LE edema - Chronic. Likely combination of heart failure and venous insufficiency .Holding torsmide and lower extremity compression wraps after recent infections. - hold torsmide in perioperative period - will likely need to restart prior to discharge - hold compression wraps in perioperative period, will likely need restart pr ior to discharge #Hx of DVT - Provoked (occurred at time of 2012 R TKA). Has been on warfarin since that chris e. Holding for surgery. Will discuss with PCP if there is an additional indication for warfa rin as provoked DVT would have only required 3-6 months of therapy. There is some chart hist ory of Afib, so perhaps that is the indication. ECG pending. Will clarify timing of restarti ng AC with ortho. - hold AC for now - discuss with PCP - ECG pending - discuss need for additional procedures/timing of restarting AC with ortho #CAD - Stable. - cont ASA, statin #SEUN - Noncompliant with BiPAP. #Gout - No acute concerns. - cont allopurinol (renally dosed) Diet: Diabetic diet with Na/fluid restriction Prophy: SC hep FEN/GI: no issues Lines: PIVs Code status: full Dispo: no anticipated date of discharge at this time Dona Mercado MD Division of Hospital Medicine [facility] Pager [phone] I spent more than 35 minutes [id number] with the patient of which greater than 50% was sp ent counseling the patient or in coordination of care. Sebas Rodriguez M D - 06/13/2018 8:20 AM PDT Orthopaedic Surgery Progress Note Date: 06/13/2018 Hospital Day: 2 Orthopaedic Attending: Ghassan Sherman MD Diagnosis(es): Right total knee prosthetic joint infection. Orthopaedic Procedure(s) & Date(s): 06/13/2018 1. Right knee arthrotomy with drainage for infection and polyethylene exchange 2. Application TINO disposible negative pressure wound therapy dressing right knee [id number] Subjective: Painful in R knee today, but overall doing well. Has not mobilized yet, but agr eeable to starting today. Objective: 24 hour Vitals: Temp Av.2 C (98.9 F) Min: 36.6 C (97.9 F) Max: 37.7 C (99.9 F) Systolic (24hrs), Av , Min:108 , Max:162 Diastolic (24hrs), Av, Min:47, Max:84 Pulse Av.2 Min: 77 Max: 170 SpO2 Av.3 % Min: 94 % Max: 100 % Lab Results Component Value Date HCT 35.2 06/13/2018 HCT 34.2 06/12/2018 HCT 31.7 06/11/2018 Lab Results Component Value Date WBC 11.11 06/13/2018 HB 11.7 06/13/2018 HCT 35.2 06/13/2018 PLT 136 06/13/2018 MCV 92.6 06/13/2018 RDW 62.4 06/13/2018 Lab Results Component Value Date NA 136 06/13/2018 K 4.4 06/13/2018 CL 103 06/13/2018 BICARB 25 06/13/2018 BUN 27 06/13/2018 EGFRAFRICAN 48 06/13/2018 EGFRNONAFR 40 06/13/2018 CR 1.66 06/13/2018 GLU 94 06/13/2018 CA 8.2 06/13/2018 ANIONGAP 8 06/13/2018 ANIONALBCOR 12 06/13/2018 Intake/Output Summary (Last 24 hours) at 06/13/18 0821 Last data filed at 06/13/18 0509 Gross per 24 hour Intake 1125 ml Output 765 ml Net 360 ml Drains: 190 out overnight Exam: General: appropriate, oriented RIGHT LOWER EXTREMITY: Inspection: Some strikethrough on TINO. Holding suction. Drain in place with serosanguinou s output. Palpation: unremarkable Motor: fires tibialis anterior, fires gastrocsoleus complex, fires EHL, fires FHL, fire s quads, fires hamstrings Sensory: grossly intact to light touch, medial, lateral, dorsal, 1st dorsal web space, p lantar Vascular: digits warm & well perfused, capillary refill < 2 seconds Assessment & Plan: Júnior Mas is a 78 y.o.M with the orthopaedic diagnoses and procedures listed above. Today's specific concerns include: Painful, but recovering well. Will maintain drain today. Patient should mobilize today w ith PT. Appears vancomycin was ordered as a "once" order in our postoperative orders. I continue d the vancomycin to Q12H until ID narrows antibiotic selection. Continue zosyn Care Protocol Items: 1. Activity: 1. Weight bearing: weight bearing as tolerated, right upper extremity 2. ROM: as tolerated, motion encouraged 2. VTE prophylaxis: high risk, lovenox SC 40mg daily or by weight, sequential compression d evices 3. Pain management: oral analgesia and IV analgesia, wean as possible 4. Antibiotics: vancomycin, piperacillin/tazobactam, until ID narrows 5. Special Concerns: 6. Dressings/Drains: Continue drain 7. Dispo/Discharge: Continue acute inpatient care 8. Follow-up: Please call the [facility], . AP and lateral of R knee at that time. SEBAS PLEITEZ MD Pager [phone] Stephan Aguirre M D - 06/12/2018 1:24 PM PDT HOSPITALIST INPATIENT PROGRESS NOTE Author: Dona Mercado MD PCP: Gilma Estrada MD Hospital Day:1 ID: This is an 78 y/o man with a history of CAD (s/p PCI x3, CABG x2) c/b ICM with chronic systolic heart failure (EF 45%), sinus node dysfunction s/p pacemaker placement 2016, Afib, HLD, DM2 (a1c 6.2), CKD (baseline Cr ~1.7), SEUN, severe cervical stenosis, hx of DVT 2013 no w on chronic AC, R knee OA s/p total knee replacement 2012, and chronic venous insufficiency , who was admitted from the ED to the medicine service on 06/11/2018 for management of a sept ic prosthetic R knee joint. 24h Events: - admitted - antibiotics held - taken to OR for washout procedure today Subj: Pt feels well. Ready for surgery today. Current Medications: [MAR Hold] dextrose 5%-NaCl 0.45% IV infusion, 50 mL/hr, intravenous, CONTINUOUS [DEC Hold] dextrose 50 % in water IV 25 mL, 25 mL, intravenous, PRN [DEC Hold] glucagon (GLUCAGEN) injection 1 mg, 1 mg, intramuscular, PRN [DEC Hold] glucose chewable tablet 16 g, 16 g, oral, PRN [MAR Hold] insulin lispro (HUMALOG) injection, , subcutaneous, MEALS and HS bupivacaine (PF) (MARCAINE,SENSORCAINE-MPF) injection, , , INTRAPROCEDURE PRN fentaNYL (SUBLIMAZE) injection, , intravenous, INTRAPROCEDURE PRN lactated Ringers IV, , , PRN Vitals: Last Vitals: BP 135/63 | Pulse 88 | Temp 36.7 C (98.1 F) | RR 16 | Wt 88.9 kg (196 lb) | SpO2 94% 24 Hour Vital Min/Max: Systolic (24hrs), Av , Min:114 , Max:140 Diastolic (24hrs), Av, Min:55, Max:72 Pulse Av.5 Min: 88 Max: 96 Temp Av.9 C (98.5 F) Min: 36.7 C (98.1 F) Max: 37.3 C (99.1 F) Resp Av.4 Min: 16 Max: 18 SpO2 Av.3 % Min: 93 % Max: 97 % Ins and Outs: Intake/Output Summary (Last 24 hours) at 06/12/18 1324 Last data filed at 06/12/18 0410 Gross per 24 hour Intake 0 ml Output 275 ml Net -275 ml Exam: General: Awake, alert and oriented. NAD Cardiovascular: normal rate, regular rhythm, distant heart sounds; JVP ~ 8 cmH2O Respiratory: CTAB anteriorly Abdomen: +BS, soft, non-tender, non-distended. No hepatosplenomegaly. Ext: warm, pulses present. Chronic venous stasis changes are present bilaterally with 1+ p itting edema Skin: R knee with overlying scar and increased warmth Basic Labs: No new. Micro: Blood cx x2 (06/11): In process. Imaging: X-ray R knee (06/11): IMPRESSION: Moderate suprapatellar joint effusion, representing known septic effusion given recent aspiration. Discussed with Dr. Valle at time of dictation. Assessment and plan: This is an 78 y/o man with a history of CAD (s/p PCI x3, CABG x2) c/b ICM with chronic systolic heart failure (EF 45%), sinus node dysfunction s/p pacemaker place ment 2015, Afib, HLD, DM2 (a1c 6.2), CKD (baseline Cr ~1.7), SEUN, severe cervical stenosis, hx of DVT 2013 now on chronic AC, R knee OA s/p total knee replacement 2012, and chronic yayo ous insufficiency, who was admitted from the ED to the medicine service on 06/11/2018 for man agement of a septic prosthetic R knee joint. #R knee arthritis - Acute, inflammatory, with 72K WBCs in synovial fluid. There may be asso ciated osteomyelitis based on imaging. It's not clear who aspirated the knee yesterday or wh ere the Gram stain (and culture) results are. I have asked for those records to be tracked d own. Going to OR now for washout (plus additional revision if necessary). Will obtain Gram s tain and culture from OR. Can start empiric antibiotics following the procedure or sooner if clinically indicated. - NPO for washout procedure today (and possibly additional procedures) - follow-up outside records request - Intraop patellar biopsy and synovial fluid Gram stain and culture - acetaminophen prn pain - oxycodone 2.5-5 mg PO q6H prn pain #Heart failure - Chronic systolic heart failure 2/2 ICM. Currently compensated. Patient is medically optimized on beta afua, statin, aldosterone antagonist, without recent PATRICIA inbi tor / ARB use given progressive renal dysfunction. Also uses torsemide 20 mg bid at home. - Na/fluid restriction, daily weights, strict I/Os - no diuretics for now - cont carvedilol 12.5 mg bid - hold spironolactone for now - no PATRICIA/ARB given renal dysfunction #DM2 - Non-insulin dependent. Pt uses metformin and glimepiride at home. Hemoglobin a1c 6.2 suggesting good control at home. - diabetic diet - hold oral agents while inhouse - ISS (moderate) #Kidney injury - Acute on chronic (baseline Cr ~1.7 best I can tell from [facility]where). A cute component likely related to active infection. - daily BMP #Anemia - Acute to subacute, mild, normocytic. Suspect anemia of inflammation. - monitor #Bilateral LE edema - Chronic. Likely combination of heart failure and venous insufficiency . Holding torsmide and lower extremity compression wraps after recent infections. - hold torsmide in perioperative period - will likely need to restart prior to discharge - hold compression wraps in perioperative period, will likely need restart prior to discha rge #Hx of DVT - Provoked (occurred at time of 2012 R TKA). Has been on warfarin since that chris e. Holding for surgery. Will discuss with PCP if there is an additional indication for warfa rin as provoked DVT would have only required 3-6 months of therapy. There is some chart hist ory of Afib, so perhaps that is the indication. There is no ECG here, will check one now. - hold AC for now - discuss with PCP - ECG #CAD - Stable. - cont ASA, statin #SEUN - Noncompliant with BiPAP. #Gout - No acute concerns. Allopurinol and colchicine held on admission. Would restart allo purinol as acute changes in serum uric acid (in either direction) could provoke a gout flare . - restart allopurinol (renally dosed) - OK to hold colchicine Diet: NPO for now (diabetic diet with Na/fluid restriction after OR) Prophy: holding for surgery FEN/GI: no issues Lines: PIVs Code status: full Dispo: no anticipated date of discharge at this time Dona Mercado MD Division of Hospital Medicine [facility] Pager [phone] I spent more than 35 minutes [id number] with the patient of which greater than 50% was sp ent counseling the patient or in coordination of care. documented in this e ncounter H&P Notes Dean Ugarte MD - 06/11/2018 8:40 PM PDTFormatting of this note might be different fro m the original. Internal Medicine History and Physical Attending Physician: Dean Ugarte MD Chief Complaint: Septic Arthritis of Right Knee HPI: Júnior Mas is a 78 y.o. male with pmh sig for coronary artery disease (s/p PCI x3 and 2000 CABG x2) c/b ischemic cardiomyopathy and chronic systolic heart failure (2015 EF 45%), Chronic anticoagulation with warfarin after 2013 DVT, Sinus Node Dysfunction s/p 09/2016 Me dtronic Pacemaker Placement, Non-Insulin Dependent Diabetes Mellitus, Severe Right Knee Oste oarthritis requiring 2012 Total Knee Replacement who has suffered from longstanding lower ex tremity edema, related venous stasis changes of lower extremities with skin tears and soft t issue infections. Patient's right lower extremity edema had been improving with localized w ound care and compressive dressings, prior to recent two weeks of worsening lower extremity and right knee edema associated with right knee warmth, subjective fevers and increasing rig ht lower extremity pain preventing patient from placing weight on affected knee. Patient re ceived 06/11 arthrocentesis by his outpatient orthopedist with 72,000 WBCs and aspiration of pustular material concerning for septic arthritis of prior right knee total arthroplasty. Nika martinez was referred to [facility] for joint revision, and presented emergently to [facility] ED from formerly [facility] ([place], [place]). Prior to presentation patient states that at baseline he can walk up flight of stairs with increased work of breathing after reaching the top, but no chest pain / pressure. He is not able to ambulate four city blocks due to increased work of breathing and lower extremity we akness. States that lower extremity pain is not primary barrier to increased ambulation. He denies chest pain / pressure, palpitations, increase in lower extremity edema or orthopnea. He has known CKD stage IV (baseline cr 1.8-2.0), has had prior OR, no CVA. For his right lower extremity discomfort, patient has taken acetaminophen-codeine 300-15mg tablets approximately one a day at max and has not used NSAIDs. His pain is currently well controlled at time of evaluation and he denies recent fever, chills, diaphoresis, confusion or altered mental status. Patient x-rays showing "Moderate suprapatellar joint effusion, wit h lytic and sclerotic patella concerning for osteomyelitis," and had not received medication s at time of admission to hospital medicine service for need of right knee total joint repla cement by orthopedic surgery team. Past Medical History: I have updated the Problem List with the patient's relevant diagnoses. Past Medical History Pyogenic arthritis of right knee joint (HCC) Hypertension Coronary Artery Disease -prior to 2000 - PCI with stent placement x3 (to proximal RCA) -2000 -CABG x2 (SVG to LAD, SVG to PDA -10/09/2015 stress test: mild distal inferior-apical ischemia, LVEF 53%. 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 No pertinent past surgical history. PCI with stent placement x3 - unclear date CABG x2 (SVG to LAD, SVG to PDA)- 2000 Medtronic Pacemaker Placement - 09/2016 Cataract Extraction Tonsillectomy Appendectomy Sinus Surgery VAsectomy 09/07/2013 - right total knee replacement Home Medications: I have obtained and documented the prior to admission medication list and it is accurate. None simvasatin 40mg po daily Eplerenone 12.5mg po daily Torsemide 20mg po bid - x Isosorbide mononitrate 60mg po daily Carvedilol 12.5mg po daily -Y [place]-3 fatty acid 1,200mg po bid Acetaminophen-codeine po q4h prn allopurinol 300mg daily colchicine 0.6mg po daily prn Metformin 500mg po bid Glimepiride 4mg po qd Warfarin 2.5mg po daily Cholecalciferol 1000mg po daily Folic acid 400mg po qd Multivitamin 1mg po daily Magnesium oxide 1 tablet po qd Allergies I have reviewed and updated the allergy list. Allergies Allergen Reactions Sulfa (Sulfonamide Antibiotics) Rash Social History I have updated the Social Hx as appropriate. Lives in [place], [place], Greater than 40 PYH tobacco use, pipe, no ETOH, or illicit substance use Family History I have updated the Family Hx as appropriate. Father - age 42 from accident Mother - at age 84 from heart disease Review of Systems: Review of Systems Constitutional: Negative for chills, fever, malaise/fatigue and weight loss. No history of complications from anesthesia / post operative nausea / vomiting HENT: Negative for hearing loss and sore throat. Eyes: Negative for double vision and photophobia. Respiratory: Negative for cough, shortness of breath and wheezing. Cardiovascular: Positive for leg swelling. Negative for chest pain, palpitations, orthopnea , claudication and PND. Gastrointestinal: Positive for diarrhea. Negative for abdominal pain, blood in stool, melen a, nausea and vomiting. Chronic loose stool on metformin Genitourinary: Negative for flank pain, frequency and urgency. Musculoskeletal: Positive for joint pain and neck pain. Negative for back pain, falls and m yalgias. Chronic cervical stenosis. Presentation for septic arthritis of right knee Skin: Positive for rash. Bilateral lower extremity venous stasis changes R>L Neurological: Negative for dizziness, sensory change, speech change, focal weakness, seizur es, loss of consciousness, weakness and headaches. Endo/Heme/Allergies: Bruises/bleeds easily. Warfarin use at time of admission Psychiatric/Behavioral: Negative for depression and substance abuse. ROS otherwise normal. Physical Exam: Last 24 hour min/max Temp: 36.7 C (98.1 F) Temp Min: 36.7 C (98.1 F) Max: 37.1 C (98.8 F) Heart Rate: (!) 95 Pulse Min: 95 Max: 96 Resp: 16 Resp Min: 16 Max: 16 BP: 125/70 BP Min: 125/70 Max: 140/55 SpO2: 96 % SpO2 Min: 96 % Max: 97 % There is no height or weight on file to calculate BMI. General Appearance: obese male, appears stated age, cooperative with examination HEENT: OP, mallampati 3, tounge midline, OP without exudate or erythema Neck: severe restriction of range of motion of neck to centimeters in all directions, JVP 4 cm above sternal notch Respiratory: Cardiovascular: Gastrointestinal: Lymphatic: Musculoskeletal: Skin: Neurologic: Psychiatric: Laboratory Interpretation: Chemistries: Last 72 Hours (or 3 results) - Refreshable Recent Labs 06/11/18 1812 NA 135* K 3.8 CL 99 BICARB 31 BUN 37* EGFRAFRICAN 39* CR 2.01* GLU 199* CA 8.5* 05/20/2018 BMP: CO2 35, cr 1.8, Ca 9.4, phos 2.8 Liver Tests: Last 72 hours (or 3 results) Recent Labs 06/11/18 181 AST 49* ALT 65* TBILI 0.7 AP 51* ALB 2.8* TP 7.3 CBC with diff last 72 hours (or 3 results) - Refreshable Recent Labs 06/11/181811 WBC 9.95 HB 10.8* HCT 31.7* PLT 188 NEUTROPERC 65.9 LYMPHPERC 21.3 MONOPERC 11.4* BASOPERC 0.3 EOSPERC 0.3* 06/11/2018 INR 1.31 05/20/2018 PTH: 115.6 01/12/2018 hemoglobin 6.2 Imaging Interpretation: 06/11/2018 Right Knee X-Rays: Moderate suprapatellar joint effusion, representing known septic effusion given recent aspi ration. Discussed with Dr. Valle at time of dictation. Lytic and sclerotic appearance to the patella. Comparison with prior radiographs would be h elpful to determine chronicity if there is concern for osteomyelitis; radiograph is insensit kai for acute osteomyelitis. Moderate soft tissue swelling. Cardiology Studies: 08/06/2017 Echocardiogram: 1. The left ventricle cavity size is normal in size, mild systolic impaired function EF 40- 45%, inferior and inferobasal hypokinesis. 2. The diastolic filling pattern indicates impaired relaxation consistent with mild dysfunc tion (Grade I). 3. The right ventricle is mildly enlarged with mildly impaired systolic function. 4. Mild degenerative changes in the aortic and mitral valves. 5. There is no pericardial effusion. Assessment: Júnior Mas is a 78 y.o. male with pmh sig for coronary artery disease (s/p PCI x3 and 2000 CABG x2) c/b ischemic cardiomyopathy and chronic systolic heart failure (2016 E F 45%), Chronic anticoagulation with warfarin after 2013 DVT, Sinus Node Dysfunction s/p 2015 Medtronic Pacemaker Placement, Non-Insulin Dependent Diabetes Mellitus, Severe Right Kn ee Osteoarthritis requiring 2012 Total Knee Replacement who presents to [facility] with septic arthritis of right knee and concern for patellar osteomyelitis at time of admission to [facility] medicine service with orthopedic sugery service consulting. I discussed patient's increased risk of morbidity / mortality in surgery. At this time pat ient appears to be optimized from cardiac perspective with ability to achieve 4 METs (abilit y to ambulate up flight of stairs). Despite his above expected exercise tolerance, his risk in surgery is still extremely high. I explicitly discussed patient's Perez risk of MACE 2. 8% and NSQIP risk of 11.7 risk for serious complications, with 1.5% risk of from surge ry with patient who has elected to continue to operating room, after assessment of risks / b enefits of revision without additional workup. Given Patient's severe cervical spinal steno sis and known cardiac risks, I would advocate for evaluation by anesthesia for peripheral sp inal block with conscious sedation over general anesthesia. Plan: Septic Right Total Knee Replacemenet Radiographic Concern for Patellar Osteomyelitis: Patient with high risk for soft tissue infection, Staph vs Strep, from right lower extremit y skin tear and soft tissue infection as precipitating event prior to septic arthritis of ri ght TKA. High clinical concern for osteomyelitis places subacute need for surgical interven tion. Will obtain blood cultures, pathology culture from expected 06/12 operative interventi on prior to involvement of ID and evaluation for broad spectrum antibiotics in hemodynamical ly stable patient. -hold on antibiotics in perioperative period -if patient with clinical decompensation would start vancomycin 20mg/kg x1 with additional doses by level via pharmacy -blood cultures x2 -please obtain biopsy from patella and right TKA for pathology / microbiology -awaiting 06/12 operative intervention -acetaminophen 650mg po q6h prn pain / fever, and oxycodone 2.5-5mg po q6h prn pain -appreciate orthopedics assistance with this complicated patient Cardiovascular Risk Assessment: Patient with ability to achieve 4 METS. Without concern for acute cardiac condition, and a ppears medically optimized with surgery of subacute need in setting of septic arthritis. Lal ve discussed patient's perioperative risk of MACE per above calculators and would suggest pr oceeding to surgery without additional cardiovascular workup per 2014 AHA/ACC guidelines wit h the following recommendations -Medications to continue in perioperative period: carvedilol 12.5mg po bid, isosorbide din itrate 60mg daily -Medications to hold in perioperative period: warfarin, omega 3 fatty acid, colchicine, ep lerenone, glimepiride, metformin, torsemide -Caitlyn-procedural Antibiotics: per primary team, no hx of prior MRSA to merit empiric use o f vancomycin prior to surgical intervention -please obtain biopsy specimens as above Severe Cervical Stenosis Patient with severe cervical stenosis, ability to move neck only few centimeters in all dir ections. Is high risk for complications with intubation and would have patient evaluated by anesthesia prior to procedure for utlity of spinal anesthesia with conscious sedation. -high risk for hyper-extension injury with placement of endotracheal tube meriting evaluati on by anesthesia prior to procedure. Obstructive Sleep Apnea Respiratory Alkalosis -Patient is higher risk for hypercarbic respiratory failure than average patient in post-op erative period given chronic obstructive sleep apnea and non-concordance with BiPAP. He tre uld closely be monitored for respiratory decompensation and transitioned to higher level of care if he has signs of respiratory decompensation in perioperative period -if with somnolence post-operatively would have low threshold for VBG and empiric trial of BiPAP Coronary Artery Disease c/b Ischemic Cardiomyopathy and Chronic Systolic Heart Failure (EF 45%) Patient with significant coronary artery disease history as above PCI x3, CABG x2 with rece nt ability to achieve 4 METs, no recent chest pain or clinical hypervolemia concerning for a ctive cardiac condition meriting delay of surgical intervention. Patient is medically optim ized on beta afua, statin, aldosterone antagonist, without recent PATRICIA inbitor / ARB use g iven progressive renal dysfunction -will continue carvedilol 12.5mg po bid in perioperative period -will hold eplerenone -PATRICIA inhibitor / ARB contraindicated in setting of renal dysfunction -OK To continue simvastatin 40mg in perioperative period Bilateral Lower Extremity Edema Protein-Calorie Malnutrition: Patient with longstanding lower extremity edema related to cardiovascular disease, and with likely contribution from on going soft tisuse infection. -would consult spinner fixer for enhanced nutrition in post-operative period Non-Insulin Dependent Diabetes Mellitus Patient with metformin, glimpeiride use at home, dysglycemia on admission likely related to acute infection. Recent hemoglobin A1C of 6.2 suggesting good control. -moderate dose SSI while inpatient -hold metformin / glimepiride for concern of lactic acidosis / hypoglycemia CKD stage IV Secondary Hyperparathyroidism Patient with CKD stage IV, secondary hyperparathyroidism in setting of active soft tissue i nfection, no evidence of sepsis. No current indication for calcium binder and calcium phos p roduct < 40 -bmp / phos daily -closely monitor intake and output -avoid nephrotoxic agents -renally dose medications Transaminitis AST and ALT in 40-60 range likely related to shock liver physiology in setting of septic ar thritis in patient with known systolic dysfunction. -treat infection as above Sinus Node Dysfunction Requiring use of Medtronic Pacemaker Known trifasicular heart block requiring placement of MRI compatable pacemaker. Recent 04/27 018 device check was normal Chronic Bilateral Lower Extremity Edema Venous Stasis Changes c/b Skin Tears and Recent Soft Tissue Infections: Bilateral lower extremity edmea likely related to systolic heart failure with R>L related t o recurrent infections. Holding torsmide and lower extremity compression wraps after recent infections. -hold torsmide in perioperative period -will likely need restart of this agent prior to discharge -hold compression wraps in perioperative period, will likely need restart prior to discharg e Chronic Medical Problems: 2013 Right Lower Extremity Provoked DVT on Chronic Anticoagulation with Warfarin: Unclear w hy patient has been continued on warfarin after DVT in post-operative period after 2012 righ t knee TKA. Would discuss with outpatient provider prior to restarting anticoagulation. Gout: no current indication for allopurinol, colchicine holding these medications on admiss ion F: PO Intake E: daily N: 2g Na, low potassium, low phosphorus, 2L volume restricted diet until midnight, then NPO for procedure PPX: SCDs on right lower extremity in perioperative period Code status: Full, confirmed with patient on admission Isolation: none, no hx of MRSA or MSSA Medication Reconciliation: completed by Dean Ugarte MD on admission Disposition: pending surgical intervention, high risk for need of rehabilitation at time of discharge, will need to review use of anticoagulation with patient's PCP prior to discharge as unclear why patient was placed on lobsterman anticoagulation after prior provoked DVT. Dean Ugarte MD Clinical Hospitalist Services [facility] Pager [phone] 06/11/2018 10:44 PM [facility] DEPARTMENT: Hosp ([facility]) - [id number] Place of Service: Date of Service: 07/25/2016 [facility] [id number] Modifiers:GC Resident Involved: No Service: PRIMARY HOSPITALIST Suggested CPT: 69085 Initial Visit Comp/High Complexity 70 min I spent 90 minutes in the care of this patient. Greater than 50% of the time was spent cou nseling and coordination of care, including discussing risk of surgery, management of antico agulation and diuretics with patient in perioperative period. documented in this en counter Procedure Notes Frances Mayberry RN - 06/16/2018 3:40 PM PDTAssociated Order(s): PICC LINE PICC LINE Performed by: FRANCES MAYBERRY Authorized by: ANN MAHMOOD PICC/Midline Insertion Procedure Note Indications:Administration IV fluids and meds, Antibiotics and Frequent lab draws Procedure location: Unit:[facility] Room: 14 Providers: Attending name: Attending physically present: No PICC Nurse name: Frances Fair RN BSN VAT Assisted by Christina March RN BSN VAT Pre-Procedure Consent: written consent obtained Consent given by: Patient Patient identity confirmed per protocol: Yes Team Pause: Immediatly prior to the procedure a pause per protocol was called. A pause veri fies correct patient, procedure, equipment, business support and site/side marked as required. CLABSI Prevention Bundle: Skin preparation: Chloraprep Protective barrier: Cap, Mask, Hand scrub, Gown, Gloves and Full body drape. Cap and mask worn by assistive personnel.Sterile Ultrasound techniques (sterile gel, and sterile probe c over) used Dressing: Dressing applied prior of removal of full barrier drape and hemost atic agent applied Procedure Details Patient was placed in appropriate position The vascular anatomy was identified by Ultrasound Guidance.wire through the needle, introdu cer over the wire, then catheter through the introducer Tip was placed using TLS (Tip Locati ng System) and TPS (Tip Positioning System). . A non-tunneled PICC Single lumen 4 Fr was placed in the Right Arm area Basilic vein. Cat heter lot number: [id number] with a length of 55 cm was selected and trimmed 14 to a remain ing length of 41 cm All ports aspirated for blood and flushed with saline Procedure comments: Vessel diameter measured without tourniquet at 0.45cm Upper arm measured 10cm above the AC at 30.5cm Power-injectable line: yes Attempts 1 attempt(s) were made Complications None PICC catheter tip location Chest radiograph ordered to verify placement and Line verified by radiograph Adjustments made after chest film obtained: None External measurement of catheter exposed: 0 cm. PICC catheter tip location: Distal SVC Estimated blood loss: <10mL Frances Fair RN BSN VAT 3:4 4 PM Ghassan Pineda MD - 06/12/2018 2:57 PM PDTAssociated Order(s): PROCEDURE NOTEDate of Service: 08/01/2015 Attending Surgeon: Ghassan Sherman MD Hand Sewer(s): mesfin thompson MD Preoperative Diagnosis: 1. right total knee prosthetic joint infection. Postoperative Diagnosis: same Procedures Performed: 1. Right knee arthrotomy with drainage for infection and polyethylene exchange 2. Application TINO disposible negative pressure wound therapy dressing right knee [id number] Anesthesia: General endotracheal anesthesia. Implants: excahgned alisha triathalon poly size 15, 13mm EBL: 50 Complications: None Specimens: 6 cultures, 1 path Indication For Procedure: Solo Alves was transferred to [facility] for sepsis after previosuly having been treated with a right total knee. He ws medically unstable and transferred to [facility] medical service. An apsirate was positive. I would recommend returning to the operatin g room for poly exchange and debridement. We discussed the procedure, alternatives, risks a t length with the patient and family and answered all their questions to their satisfaction. A consent form was signed and leg marked. Procedure In Detail: The patient was identified in the preoperative holding area by name, b irth date, medical record number, and was transported to the operating room and transferred to the operating table where general endotracheal anesthesia was induced without difficulty. We then prepped and draped his right lower extremity in the usual sterile fashion. At this time, a time-out procedure was undertaken during which he was identified and the consent fo rm was reviewed as well as the site marking. It was verified that he had received his preope rative antibiotics as well as the placement of a pneumatic compression device in his right l ower extremity, which was on and working. Everyone in the room was in agreement that the cor rect side, site, and procedure were to take place and the procedure began. After the placem ent of the tourniquet, his incisions were then marked out and we began with the typical medi al parapatellar arthrotomy incision. We followed along the medial cortex of the patella. A s kin incision was made with a 15 blade scalpel and dissection was carried down to the level o f the knee capsule with electrocautery. An arthrotomy was made in the medial parapatellar k nee. Grossly purlent tissue was encounteered. A standrad set of ortho biopsies were obtain ed. The arhtrotomy was extended such that a finger could be place about the knee to break u p loculations in the suprapatellar pouch, medial and lateral gutters and notch of the knee. The femoral and tibial componenets of the toal kne were stable. synoviuim was excised as c ompletely as possible. AN osteotome was used to remove the poly liner. The back of the kne e was then debrided. The knee was lavaged with 6 liters of sterile saline. A betadine wash was performed. The knee was then flexed and a new alisha triathalon CR poly, size 5 with 13mm height was implnated into the tibial baseplate. IT was stable. The knee was much vicky alf appearing at this point. The knee was lavaged with 10 l of sterile saline under gravit y drainage. A drain was placed in the knee. The knee casule was closed with 0 vicryl sutu re, and skin closed with 2-0 Biosyn and 3-0 nylon. Due to the risk of postop hematoma and drainage a TINO disopsible negative pressure dressin g was applied over the incision. This measured 10x30 cm. Sticky drapes were placed around t he incision to protect the skin. Sticky drapes were applied over this. Suction was applie d and held appropriately. Suction will be set postoperatively to 100 mm Hg. The vac should be removed in approximately 7 days. Sterile Webril was then wrapped, as well as a large Patricia wrap. He was then awoken from [facility] and transported back to the postanesthesia care unit. Postoperative Plan: The patient be full weightbearing on his right lower extremity He will follow up in approximately 2-3 weeks with Licha Luna for wound inspection in clinic. At that visit he should have xrays ap/lateral of the right knee. He can have his sutures remov ed. He will be on likely PICC line IV antibiotics. He can start physical therapy for knee motion at the two week postop visit. In accordance with medicare guidelines I was present for the critical portion of the proced ure. Ghassan Sherman MD ADDENDUM: (06/17/2018): The date listed above is incorrect. The correct date of surgery w as 06/12/2018. The remainder of the operative note is correct as it stands. Ghassan Sherman MD, MPH Repair Specialist, [place] [address] [email or web address] docu mented in this encounter Consult Notes Tanvir Ayala - 06/17/2018 11:12 AM PDTFormatting of this note might be different from the o riginal. INPATIENT INFECTIOUS DISEASE PROGRESS NOTE ID TEAM: B Patient: Júnior Mas PCP: Gilma Estrada MD Author: Tanvir Ayala Date of Admission: 06/11/2018 Hospital Day: 6 Chief Complaint: Pyogenic arthritis of right knee joint, due to unspecified organism (HCC) ASSESSMENT AND PLAN Assessment: Mr. 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 He is now s/p I&D and polyethylene li nier exchange with hardware retention. Clinically, the patient is improving upon administrat ion of IV antibiotics, and will likely require 6 weeks of IV Cefazolin from the date of his I&D (06/12). It was discussed with the patient the possibility of treatment failure given the one-stage partial revision and retained hardware. At this time, the patient has been cleared for discharge. It was discussed with the family that the patient will need to follow up at [facility] on July 23 with orthopedics. During t hat time,we will cooridnate so that he may follow up with ID/OPAT in regards to his treatmen t. He will be discharged to [facility] to receive inpatient therapy and OPAT. 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 Change Cefazolin 2gIV q8 hours, with renal adjustments as required 2. Tentative duration of Cefazolin will be 6 weeks from the time of surgery (SOT: 06/12 - EO T: 07/24) 3. Discussed with patient that OPAT can cont. at [facility]. If patient is discharged fr om there, his family is available to administer his abx therapy. 4. Patient has follow up appt on 07/24 with orthopedics. We will plan to coordinate an ID vi sit during that time. 5. Infectious Disease will sign-off at this time. Thank you for the consult. If there any q uestions are concerns, please re-consult as required Recommendations were communicated directly to the primary team. [facility] Villalobos, who agrees with the above assessment and plan unless otherwise documented. Tanvir Ayala [facility] P SUBJECTIVE Interval Events: No acute events overnight S: Patient reports he feels ready to go home and work on his therapy. No acute issues notes Denied: Fevers/Chills N/V/D Abdominal Pain SOB/Cough/Chest pain OBJECTIVE Physical exam: Last Vitals: BP 119/47 | Pulse 76 | Temp 36.7 C (98.1 F) | RR 14 | Ht 1.702 m (5' 7") | Wt 89.9 kg (198 lb 3.2 oz) | SpO2 99% | BMI 31.04 kg/(m^2) 24 Hour Vital Min/Max: Systolic (24hrs), Av , Min:101 , Max:119 Diastolic (24hrs), Av, Min:46, Max:55 Pulse Min: 72 Max: 89 Temp Min: 36.5 C (97.7 F) Max: 36.7 C (98.1 F) Resp Min: 14 Max: 15 SpO2 Min: 96 % Max: 99 % Intake/Output Summary (Last 24 hours) at 06/17/18 1114 Last data filed at 06/17/18 1002 Gross per 24 hour Intake 710 ml Output 2310 ml Net -1600 ml General: NAD, sitting in bedside chair, chatting with nurse HEENT: No scleral icterus, no conjunctival injection. Normal oral mucosa. Respiratory: Normal respiratory effort; clear to auscultation bilaterally; no wheezes, no c rackles. Cardiovascular: Regular Rhythm, normal rate; no murmurs; peripheral pulses are symmetric. GI: Soft,nontender, non-distended; normal bowel sounds. Extremities: Full ROM, no edema. R knee with bandage. Wound c/d/I. w.o drainage or erythema Lymph Nodes: no appreciable lymphadenopathy Skin: no rashes Neuro: Alert, oriented x 3, no focal neurological deficits Lines: PICC Antimicrobial Medications Antibiotics Start Date Stop Date Comments: Cefazolin 2g IV 06/12/18 06/12/18 Zosyn 4.5 g IV 06/12/18 06/13/18 Vancomycin 1 g IV 06/12/18 06/12/18 Vancomycin 1250 mg 06/13/18 06/15/18 Cefazolin 2g IV 06/15/18 07/24/18 to be continued via OPAT at [facility] Microbiology Data: Source Date Results Tissue cultures 06/12 X 5 positive for staphylococcus epidermidis Body fluid culture 06/12 body fluid cultures x 1 positive for s. Epidermidis Blood cultures 06/11 blood cultures x 2 NGTD New Imaging Since Last ID Note: None Laboratory Data: Recent Labs 06/11/18 1812 06/13/18 0436 06/14/18 0524 06/15/18 0704 WBC 9.95 < > 11.11* 12.05* 10.00 RBC 3.44* < > 3.80* 3.23* 3.10* HB 10.8* < > 11.7* 9.9* 9.5* HCT 31.7* < > 35.2* 30.1* 28.8* PLT 188 < > 136* 186 216 NEUTROPERC 65.9 -- -- -- 66.7 LYMPHPERC 21.3 -- -- -- 21.4 MONOPERC 11.4* -- -- -- 10.5* BASOPERC 0.3 -- -- -- 0.2 EOSPERC 0.3* -- -- -- 0.7* < > = values in this interval not displayed. Recent Labs 06/15/18 0704 06/16/18 0423 06/16/18 2320 06/17/18 0359 06/17/18 0859 NA 135* -- 135* -- -- 138 -- K 4.0 -- 3.7 -- -- 4.0 -- CL 97 -- 99 -- -- 101 -- BICARB 29 -- 32 -- -- 32 -- BUN 44* -- 45* -- -- 40* -- CR 2.10* -- 2.03* -- -- 1.73* -- GLU 118* < > 122* < > 204* 154* 135* CA 8.2* -- 8.2* -- -- 8.5* -- < > = values in this interval not displayed. Lab Results Lab Test Name Results Date/Time AST 26 06/14/18 ALT 29 06/14/18 AP 42 06/14/18 TBILI 0.9 06/14/18 TP 6.0 06/14/18 ALB 2.1 06/14/18 Lab Results Lab Test Name Results Date/Time APTT 36.5 06/11/18 Lab Results Lab Test Name Value Date ESR 87 06/11/2018 Lab Results Lab Test Name Value Date CRP 143.0 06/11/2018 Medications: Current Facility-Administered Medications Medication Dose Route Frequency acetaminophen-codeine (TYLENOL #3) 300-30 mg 1 tablet 1 tablet oral Q6H PRN allopurinol (ZYLOPRIM) tablet 300 mg 300 mg oral DAILY bisacodyl (DULCOLAX) suppository 10 mg 10 mg rectal DAILY PRN carvedilol (COREG) tablet 12.5 mg 12.5 mg oral BID ceFAZolin IV 2 gram in dextrose (RTU) 2 g intravenous Q8H cholecalciferol (Vitamin D3) (VITAMIN D-3) tablet 1,000 Units 1,000 Units oral DAILY dextrose 50 % in water IV 25 mL 25 mL intravenous PRN fluticasone (FLONASE) 50 mcg/actuation nasal spray 1 spray 1 spray both nostrils BID P RN folic acid (FOLVITE) tablet 0.4 mg 400 mcg oral DAILY glucagon (GLUCAGEN) injection 1 mg 1 mg intramuscular PRN glucose chewable tablet 16 g 16 g oral PRN heparin, porcine (PF) injection 5,000 Units 5,000 Units subcutaneous Q8H insulin lispro (HUMALOG) injection subcutaneous MEALS and HS multivitamin (THERA VITAMIN) 1 tablet 1 tablet oral DAILY polyethylene glycol (MIRALAX) packet 17 g 17 g oral TID PRN senna-docusate (SENOKOT S) 8.6-50 mg 1 tablet 1 tablet oral BID torsemide (DEMADEX) tablet 20 mg 20 mg oral BID ( and ) warfarin (COUMADIN) tablet 2.5 mg 2.5 mg oral QPM Current Inpatient Medications Medication acetaminophen-codeine 300-30 mg oral tablet allopurinol 300 mg oral tablet antiox.mv [id number] (I-CAPS) 280-10-2 mg oral capsule carvedilol 12.5 mg oral tablet ceFAZolin injection recon soln cholecalciferol (Vitamin D3) 1,000 unit oral tablet colchicine 0.6 mg oral tablet eplerenone 25 mg oral tablet folic acid 0.4 mg oral tablet glimepiride 4 mg oral tablet heparin sodium,porcine/PF (HEPARIN, PORCINE (PF)) 5,000 unit/0.5 mL injection solution magnesium oxide 400 mg oral tablet metFORMIN SR 500 mg oral tablet extended release 24 hr methotrexate 2.5 mg oral tablet multivitamin oral tablet Niacinamide 500 mg oral tablet omega-3 fatty acids (FISH OIL ORAL) senna-docusate 8.6-50 mg oral tablet simvastatin 40 mg oral tablet torsemide 20 mg oral tablet warfarin 2.5 mg oral tablet Rashard Prince - 06/17 6:54 AM PDT Pharmacy Services: Warfarin Anticoagulation Note - Indication: deep venous thrombosis - INR goal: 2-3 - Warfarin: 2.5 mg by mouth tonight at 2100 - Therapeutic bridging: DVT prophylaxis with heparin SC per treatment team - Patient education: Patient education/educational assessment documented in the patient edu cation activity this admission on 06/14/18 - Home Regimen: 5mg on Saturdays and 2.5mg on all other days of the week. - Anticoagulation Clinic/Provider: New PCP Dr. Don Estrada ([phone]) Date INR Warfarin Dose 06/17/2018 1.78 2.5 mg Monitoring - Drug interactions: Vancomycin may increase the risk of bleeding - Changes to diet: Yes - patient only eating about 15% of meals, as of 06/14/18 - Patient receiving continuous tube feedings: No - Bruising or bleeding report: None noted; 50 mL on 06/12/18 - Events affecting anticoagulation (vitamin K, FFP, PRBC administration): None INR (INR) Date Value Warfarin Dose 06/17/2018 1.78 (H) 2.5 mg scheduled 06/16/2018 1.51 (H) 2.5 mg 06/15/2018 -- 5 mg 06/14/2018 1.44 (H) 5 mg 06/12/2018 1.42 (H) None 06/11/2018 1.31 (H) None HEMOGLOBIN (g/dL) Date Value 06/15/2018 9.5 (L) 06/14/2018 9.9 (L) 06/13/2018 11.7 (L) HEMATOCRIT (%) Date Value 06/15/2018 28.8 (L) 06/14/2018 30.1 (L) 06/13/2018 35.2 (L) PLATELET COUNT (K/cu mm) Date Value 06/15/2018 216 06/14/2018 186 06/13/2018 136 (L) Current medications: acetaminophen-codeine (TYLENOL #3) 300-30 mg 1 tablet, 1 tablet, oral, Q6H PRN allopurinol (ZYLOPRIM) tablet 300 mg, 300 mg, oral, DAILY bisacodyl (DULCOLAX) suppository 10 mg, 10 mg, rectal, DAILY PRN carvedilol (COREG) tablet 12.5 mg, 12.5 mg, oral, BID ceFAZolin IV 2 gram in dextrose (RTU), 2 g, intravenous, Q8H cholecalciferol (Vitamin D3) (VITAMIN D-3) tablet 1,000 Units, 1,000 Units, oral, DAILY dextrose 50 % in water IV 25 mL, 25 mL, intravenous, PRN fluticasone (FLONASE) 50 mcg/actuation nasal spray 1 spray, 1 spray, both nostrils, BID PRN folic acid (FOLVITE) tablet 0.4 mg, 400 mcg, oral, DAILY glucagon (GLUCAGEN) injection 1 mg, 1 mg, intramuscular, PRN glucose chewable tablet 16 g, 16 g, oral, PRN heparin, porcine (PF) injection 5,000 Units, 5,000 Units, subcutaneous, Q8H insulin lispro (HUMALOG) injection, , subcutaneous, MEALS and HS multivitamin (THERA VITAMIN) 1 tablet, 1 tablet, oral, DAILY polyethylene glycol (MIRALAX) packet 17 g, 17 g, oral, TID PRN senna-docusate (SENOKOT S) 8.6-50 mg 1 tablet, 1 tablet, oral, BID torsemide (DEMADEX) tablet 20 mg, 20 mg, oral, BID ( and ) warfarin (COUMADIN) tablet 2.5 mg, 2.5 mg, oral, QPM Pharmacy Services will continue to follow and make recommendations. Please page clinical ph armacist [phone]) or call central inpatient pharmacy ([phone]) with questions. Rashard Jacob Pharm. D. Candidate Associated attestation - [facility] - 06/17/2018 11:14 AM PDT--I have reviewed the note written by pharmacy resident Rashard Jacob and I agree with the content and his plan for warfarin on this patient. Thank you, [facility]. Pager [phone] [facility] - 06/16/2018 1:26 PM PDTFormatting of this note might be different fro m the original. Pharmacy Services: Warfarin Anticoagulation Note - Indication: deep venous thrombosis - INR goal: 2-3 - Warfarin: 2.5 mg by mouth tonight at 2100 - Therapeutic bridging: DVT prophylaxis with heparin SC per treatment team - Patient education: Patient education/educational assessment documented in the patient edu cation activity this admission on 06/14/18 - Home Regimen: 5mg on Saturdays and 2.5mg on all other days of the week. - Anticoagulation Clinic/Provider: new PCP Dr. Don Estrada ([phone]) Date INR Warfarin Dose 06/16/2018 1.51 2.5mg Monitoring - Drug interactions: vancomycin may increase the risk of bleeding with warfarin - Changes to diet: Yes - patient only eating about 15% of meals - Patient receiving continuous tube feedings: No - Bruising or bleeding report: None noted - Events affecting anticoagulation (vitamin K, FFP, PRBC administration): None INR (INR) Date Value Warfarin dose 06/16/2018 1.51 (H) 2.5mg scheduled 06/15/2018 -- 5mg 06/14/2018 1.44 (H) 5mg 06/12/2018 1.42 (H) 06/11/2018 1.31 (H) HEMOGLOBIN (g/dL) Date Value 06/15/2018 9.5 (L) 06/14/2018 9.9 (L) 06/13/2018 11.7 (L) HEMATOCRIT (%) Date Value 06/15/2018 28.8 (L) 06/14/2018 30.1 (L) 06/13/2018 35.2 (L) PLATELET COUNT (K/cu mm) Date Value 06/15/2018 216 06/14/2018 186 06/13/2018 136 (L) Current medications: acetaminophen-codeine (TYLENOL #3) 300-30 mg 1 tablet, 1 tablet, oral, Q6H PRN allopurinol (ZYLOPRIM) tablet 300 mg, 300 mg, oral, DAILY bisacodyl (DULCOLAX) suppository 10 mg, 10 mg, rectal, DAILY PRN carvedilol (COREG) tablet 12.5 mg, 12.5 mg, oral, BID ceFAZolin IV 2 gram in dextrose (RTU), 2 g, intravenous, Q8H cholecalciferol (Vitamin D3) (VITAMIN D-3) tablet 1,000 Units, 1,000 Units, oral, DAILY dextrose 5%-NaCl 0.45% IV infusion, 50 mL/hr, intravenous, CONTINUOUS dextrose 50 % in water IV 25 mL, 25 mL, intravenous, PRN fluticasone (FLONASE) 50 mcg/actuation nasal spray 1 spray, 1 spray, both nostrils, BID PRN folic acid (FOLVITE) tablet 0.4 mg, 400 mcg, oral, DAILY glucagon (GLUCAGEN) injection 1 mg, 1 mg, intramuscular, PRN glucose chewable tablet 16 g, 16 g, oral, PRN heparin, porcine (PF) injection 5,000 Units, 5,000 Units, subcutaneous, Q8H insulin lispro (HUMALOG) injection, , subcutaneous, MEALS and HS multivitamin (THERA VITAMIN) 1 tablet, 1 tablet, oral, DAILY polyethylene glycol (MIRALAX) packet 17 g, 17 g, oral, TID PRN senna-docusate (SENOKOT S) 8.6-50 mg 1 tablet, 1 tablet, oral, BID warfarin (COUMADIN) tablet 5 mg, 5 mg, oral, QPM Pharmacy Services will continue to follow and make recommendations. Please page clinical ph armacist [phone]) or call central inpatient pharmacy ([phone]) with questions. Thank you for consult, [facility]. Pager [phone] Trish Blankenship MD - 10:46 AM PDTAssociated Order(s): IP CONSULT TO INFECTIOUS DISEASESFormatting of [facility] s note might be different from the original. [facility] Infectious Diseases OPAT Referral for Discharge Planning Team B: OPAT RN Jaye Winchester, Office: [phone], Pager: [phone] ID Diagnosis: PJI Antibiotic agent and dosing: Antimicrobials Antibiotic Dose, route, frequency Duration Effective Start Date Anticipated Stop Date date calculator Comments cefazolin 2g IV Q 8 h 6 weeks 06/12/18 07/24/18 Dose will have to be adjusted based on renal function OPAT labs: weekly CBC with Differential, CMP and CRP Potential safe infusion settings from ID perspective Yes: Home infusion Yes : Infusion center Yes : SNF Yes : LTACH Yes : In hospital N/A : Hemodialysis Barriers to safe OPAT: poor mobility Vascular Access: PICC (to be placed) Follow Up: ID clinic 07/23 with any available provider (pt has an ortho appointment 10:40 sa day) Cloth Classer: For all patients requiring IV antibiotic therapy, please route your OPAT [place] n of Care Note (.CMOPAT) to [facility] "p OPAT/Infectious Diseases clinic" Pool at discharge. Ple ase communicate to primary team that you will be notifying Infectious Diseases of the OPAT P quin of Care. GreyRashard davis - 06/15/2018 11:10 AM PDT Pharmacy Services: Warfarin Anticoagulation Note Assessment/Plan: Júnior Mas, a 78 year old male newly restarted on 06/14/18 on indefinite treatment with wa rfarin for deep venous thrombosis and vaguely documented history of atrial fibrillation with an INR target of 2-3 - INR is below the therapeutic range. Last INR of 1.44 was taken on 06/14/18. Received first dose of 5 mg @ 2100 on 06/14/18. Will continue current regimen until INR is therapeutic. - Warfarin: Continue warfarin regimen at dose of 5 mg tonight @ 2100 - Therapeutic Bridging: Continue SC heparin for DVT and Stroke prophylaxis until INR therap eutic. Discussed with primary treatment team, given historical DVT and unclear atrial fibril lation diagnosis do not feel patient warrants full therapeutic bridging at this time - Next INR ordered for tomorrow morning with labs - Monitor for signs and symptoms of bleeding - Patient Education: Patient education/educational assessment documented in the patient edu cation activity this admission on 06/14/18 - Pharmacy Services will continue to follow and make recommendations. Please page clinical pharmacist [phone]) or call central inpatient pharmacy ([phone]) with questions. Subjective/Objective: Allergies: Nsaids (non-steroidal anti-inflammatory drug) and Sulfa (sulfonamide antibiotics ) Diet: Reports changes to diet: Yes - patient reports minimal dietary intake this admission, breakfast yesterday was his first full meal, ate very little of his dinner Patient is receiving continuous tube feedings: No Bruising or bleeding report: None noted Labs: Hemoglobin/hematocrit/platelets:9.5/28.8/216 ALBUMIN, PLASMA (LAB) (g/dL) Date Value 06/14/2018 2.1 (L) CREATININE PLASMA (LAB) (mg/dL) Date Value 06/15/2018 2.10 (H) INR (INR) Date Value Warfarin Dose 06/15/2018 -- 5 mg Scheduled 06/14/2018 1.44 (H) 5 mg 06/12/2018 1.42 (H) None 06/11/2018 1.31 (H) None Current medications: acetaminophen-codeine (TYLENOL #3) 300-30 mg 1 tablet, 1 tablet, oral, Q6H PRN allopurinol (ZYLOPRIM) tablet 300 mg, 300 mg, oral, DAILY bisacodyl (DULCOLAX) suppository 10 mg, 10 mg, rectal, DAILY PRN carvedilol (COREG) tablet 12.5 mg, 12.5 mg, oral, BID cholecalciferol (Vitamin D3) (VITAMIN D-3) tablet 1,000 Units, 1,000 Units, oral, DAILY dextrose 5%-NaCl 0.45% IV infusion, 50 mL/hr, intravenous, CONTINUOUS dextrose 50 % in water IV 25 mL, 25 mL, intravenous, PRN fluticasone (FLONASE) 50 mcg/actuation nasal spray 1 spray, 1 spray, both nostrils, BID PRN folic acid (FOLVITE) tablet 0.4 mg, 400 mcg, oral, DAILY glucagon (GLUCAGEN) injection 1 mg, 1 mg, intramuscular, PRN glucose chewable tablet 16 g, 16 g, oral, PRN heparin, porcine (PF) injection 5,000 Units, 5,000 Units, subcutaneous, Q8H insulin lispro (HUMALOG) injection, , subcutaneous, MEALS and HS multivitamin (THERA VITAMIN) 1 tablet, 1 tablet, oral, DAILY polyethylene glycol (MIRALAX) packet 17 g, 17 g, oral, TID PRN senna-docusate (SENOKOT S) 8.6-50 mg 1 tablet, 1 tablet, oral, BID vancomycin (VANCOCIN) IV 1,250 mg, 1,250 mg, intravenous, Q24H warfarin (COUMADIN) tablet 5 mg, 5 mg, oral, QPM Patient reports missing warfarin doses: Yes - held 06/12-06/13 (last dose the morning of 06/11, note INR subtherapeutic at admission though) Current medication interactions: Yes - vancomycin may enhance the anticoagulation effects o f warfarin. All other interactions currently accounted for as chronic concomitant therapy. Events affecting anticoagulation (vitamin K, FFP, PRBC administration): None Other anticoagulants/anti-platelet agents: Yes - prophylactic SC heparin Home warfarin regimen: warfarin 5 mg on Friday and 2.5 mg all other days of the week per patient report. He is currently managed by his new PCP Don Estrada MD ([phone]). The patient reports Dr Estrada wanted him to stopped warfarin but he was later told by another nika estevez to restart it recently (patient could not remember which provider had him restart th erapy). Currently unclear whether the patient needs to continue chronic therapy or not, he w ill follow-up with his PCP after discharge Assessment/Plan: Added to top of note Rashard Carrington. Candidate Associated attestation - Iris Tavera [facility] - 06/15/2018 11:39 AM PDTI have reviewed and agree with the pharmacy resident's documentation and have documented any additions or exceptions. Thank You, Iris Tavera Pharm.D. Tanvir Ayala - 06/15/2018 11:05 AM PDTFormatting of this note might be different from the o riginal. INPATIENT INFECTIOUS DISEASE CONSULT NOTE Infectious Disease Team B Patient: Júnior Mas Room/Bed: 09/11 Requesting Provider: Sandra Valle MD at bedside 6:20 PM 06/11/18 DAYAN VALVERDE MD at bedside 7:04 AM 06/12/18 ID Attending Physician: Ishaan Villalobos MD PCP: Gilma Estrada MD Author: Tanvir Ayala Date of Admission: 06/11/2018 Hospital Day: 4 Date of Service: 06/15/2018 Chief Complaint/Reason for Consult: Septic Arthritis of the Right Knee/ R patellar osteomyelitis ASSESSMENT AND PLAN Assessment: Mr. 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 He is now s/p washout and polyethylene exchange (06/12), however he stil l has retained hardware. Considering his sensitivities, we recommend the patient be switched from vancomycin to cefazolin (renally adjusted dosing) for an estimated 6 weeks of therapy. We will follow inflammatory markers and clinical progression. Considered adding rifampin as additional agent to help treat for biofilm, but patient currently on warfarin for anticoagu lation, and this would increase risk of patient's chance of bleeding. 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 Please place picc line 2. Please d/c vancomycin 1250mg IV daily 3. Please start Cefazolin 2g IV q12 hours, with renal adjustments as required 4. Tentative duration of Cefazolin will be 6 weeks from the time of surgery (06/12) 5. Please discuss home infusion with case management 6. We will discuss [facility] vs outside providers. Formalized recs pending Recommendations were communicated directly to the primary team. This patient was staff[facility] Dr[facility] Villalobos, who agrees with the above assessment and plan unless otherwise documented. Thank you for the consult, we will follow along with you. Tanvir Ayala [facility] P SUBJECTIVE HPI: Júnior Mas is a 78 y.o. 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 He presented these symptoms to his outpatient orthopedist on 06/11 who then performed an art hrocentesis of his R Knee. This was found to have leukocytosis, with pustular aspiration con cerning for septic arthritis. The patient was then transferred from [place] to [facility] for fu rther evaluation. While here, imaging of his knee found findings concerning for patellar ost eomyelitis. Ortho evaluated the patient and performed a R knee arthrotomy with drainage and polyethylene exchange. A wound vac was also applied and no hardware was removed. Standard ti ssue cultures were obtained and grew Staphylococcus epidermidis. The patient was started on vancomycin 200mg/kg. Today, Mr. Mas states he is doing well. Has some tenderness at his right knee, but this i s now resolving. He would like to walk more. ROS: Patient reports no headache, nausea, vomiting, or diarrhea. Currently denies fever. Reports numbness of his legs. A 12-point ROS was performed and negative except as detailed above. PMH: Past Medical History: Diagnosis Date Congestive heart failure (HCC) Coronary atherosclerosis Diabetes mellitus (HCC) Essential hypertension Past [place] [address] chronic osteoarthritis Washout on 06/12/2017 Prior Medications: Prescriptions Prior to Admission Medication Sig Dispense Refill acetaminophen-codeine 300-30 mg oral tablet Take 1 tablet by mouth twice daily as neede d for severe pain. allopurinol 300 mg oral tablet Take 300 mg by mouth once daily. antiox. [id number] (I-CAPS) 280-10-2 mg oral capsule Take 1 capsule by mout h once daily. carvedilol 12.5 mg oral tablet Take 12.5 mg by mouth two times daily. Administer with f ood. cholecalciferol (Vitamin D3) 1,000 unit oral tablet Take 1,000 Units by mouth once russell y. colchicine 0.6 mg oral tablet Take 0.6 mg by mouth once daily as needed (gout flare). folic acid 0.4 mg oral tablet Take 400 mcg by mouth once daily. glimepiride 4 mg oral tablet Take 4 mg by mouth once daily with breakfast. isosorbide mononitrate CR 60 mg oral tablet extended release 24 hr Take 30 mg by mouth once daily. losartan 50 mg oral tablet Take 50 mg by mouth once daily. magnesium oxide 400 mg oral tablet Take 400 mg by mouth once daily. metFORMIN SR 500 mg oral tablet extended release 24 hr Take 1,000 mg by mouth two times daily with meals. Administer with evening meal. methotrexate 2.5 mg oral tablet Take 15 mg by mouth every seven days. multivitamin oral tablet Take 1 tablet by mouth once daily. Niacinamide 500 mg oral tablet Take 1 tablet by mouth three times daily. omega-3 fatty acids (FISH OIL ORAL) Take 1 capsule by mouth once daily. potassium chloride SR 10 mEq oral tablet,ER particles/crystals Take 20 mEq by mouth two times daily. torsemide 20 mg oral tablet Take 20 mg by mouth two times daily. warfarin 2.5 mg oral tablet Take 2 tablets by mouth every Friday. Take 1 tablet by [facility] all other days of the week. Current Medications: Current Facility-Administered Medications Medication Dose Route Frequency acetaminophen-codeine (TYLENOL #3) 300-30 mg 1 tablet 1 tablet oral Q6H PRN allopurinol (ZYLOPRIM) tablet 300 mg 300 mg oral DAILY bisacodyl (DULCOLAX) suppository 10 mg 10 mg rectal DAILY PRN carvedilol (COREG) tablet 12.5 mg 12.5 mg oral BID cholecalciferol (Vitamin D3) (VITAMIN D-3) tablet 1,000 Units 1,000 Units oral DAILY dextrose 5%-NaCl 0.45% IV infusion 50 mL/hr intravenous CONTINUOUS dextrose 50 % in water IV 25 mL 25 mL intravenous PRN fluticasone (FLONASE) 50 mcg/actuation nasal spray 1 spray 1 spray both nostrils BID P RN folic acid (FOLVITE) tablet 0.4 mg 400 mcg oral DAILY glucagon (GLUCAGEN) injection 1 mg 1 mg intramuscular PRN glucose chewable tablet 16 g 16 g oral PRN heparin, porcine (PF) injection 5,000 Units 5,000 Units subcutaneous Q8H insulin lispro (HUMALOG) injection subcutaneous MEALS and HS multivitamin (THERA VITAMIN) 1 tablet 1 tablet oral DAILY polyethylene glycol (MIRALAX) packet 17 g 17 g oral TID PRN senna-docusate (SENOKOT S) 8.6-50 mg 1 tablet 1 tablet oral BID vancomycin (VANCOCIN) IV 1,250 mg 1,250 mg intravenous Q24H warfarin (COUMADIN) tablet 5 mg 5 mg oral QPM Antimicrobial Medications Antibiotics Start Date Stop Date Comments: Cefazolin 2g IV 06/12/18 06/12/19 Zosyn 4.5 g IV 06/12/19 06/13/19 Vancomycin 1 g IV 06/12/19 06/12/19 Vancomycin 1250 mg 06/13/19 Allergies Allergies Allergen Reactions Nsaids (Non-Steroidal Anti-Inflammatory Drug) Renal Failure Avoid per Frame Operator recommendations Sulfa (Sulfonamide Antibiotics) Rash Social History Social History Substance Use Topics Smoking status: Never Smoker Smokeless tobacco: Never Used Alcohol use No Social History Narrative None on file Family History: No family history on file. OBJECTIVE Physical Exam: BP 110/55 | Pulse 90 | Temp 36.4 C (97.5 F) | RR 16 | Ht 1.702 m (5' 7") | Wt 84.1 kg ( 185 lb 6.5 oz) | SpO2 96% | BMI 29.04 kg/(m^2) Systolic (24hrs), Av , Min:110 , Max:131 Diastolic (24hrs), Av, Min:53, Max:57 Pulse Av.3 Min: 69 Max: 100 Temp Av C (98.6 F) Min: 36.4 C (97.5 F) Max: 37.4 C (99.3 F) Resp Av.2 Min: 16 Max: 17 SpO2 Av.2 % Min: 90 % Max: 100 % General Appearance: comfortable, NAD, laying in bed-side seat watching televison HEENT: EOMI, no conjunctival petechiae, no scleral icterus Neck: supple, no neck masses noted Lymph Nodes: no palpable lymphadenopathy of cervical, submandibular, or supraclavicular leland ins Respiratory: good respiratory effort; CTAB, no wheezes, crackles or rales Cardiovascular: regular rhythm; normal rate, no murmurs, no rubs Gastrointestinal: +BS, soft, non tender, non distended, no hepatosplenomegally Skin: Warm, well perfused, stasis dermatitis present on b/l LE Extremities: warm & well perfused, R knee edematous with wound vac in place: c/d/I. MARCOS in lateral thigh draining serosanguinous fluid Neurologic: Oriented to person, place, date and situation. Lines/drains: PIV x 2. MARCOS as above Data: Recent Labs 06/11/18 1812 06/13/18 0436 06/14/18 0524 06/15/18 0704 WBC 9.95 < > 11.11* 12.05* 10.00 RBC 3.44* < > 3.80* 3.23* 3.10* HB 10.8* < > 11.7* 9.9* 9.5* HCT 31.7* < > 35.2* 30.1* 28.8* PLT 188 < > 136* 186 216 NEUTROPERC 65.9 -- -- -- 66.7 LYMPHPERC 21.3 -- -- -- 21.4 MONOPERC 11.4* -- -- -- 10.5* BASOPERC 0.3 -- -- -- 0.2 EOSPERC 0.3* -- -- -- 0.7* < > = values in this interval not displayed. Recent Labs 06/14/18 0524 06/14/18 1800 06/14/18 2130 06/15/18 0704 06/15/18 0929 NA 136 -- 135* -- 135* -- K 3.6 -- 4.1 -- 4.0 -- CL 98 -- 97 -- 97 -- BICARB 34* -- 34* -- 29 -- BUN 23* -- 38* -- 44* -- CR 2.08* -- 2.17* -- 2.10* -- GLU 81 < > 192* 203* 118* 134* CA 8.0* -- 8.0* -- 8.2* -- < > = values in this interval not displayed. Recent Labs 06/12/18 2224 06/13/18 0436 06/14/18 0524 AST 40 60* 26 ALT 52 48 29 AP 48* 44* 42* TBILI 1.0 1.1 0.9 TP 6.9 6.6 6.0* ALB 2.6* 2.3* 2.1* Lab Results Lab Test Name Results Date/Time APTT 36.5 06/11/18 Lab Results Lab Test Name Value Date ESR 87 06/11/2018 Lab Results Lab Test Name Value Date CRP 143.0 06/11/2018 Microbiology Data: 8/17 tissue cultures x 5 positive for staphylococcus epidermidis 06/12 body fluid cultures x 1 positive for s. Epidermidis 06/11 blood cultures x 2 NGTD Imaging: R knee x-ray, 2 views: Lytic and sclerotic appearance to the patella with possible concern for osteomyelitis Associated attestation - Ishaan Villalobos MD - 06/16/2018 12:22 AM PDTINFECTIOUS DISEASES ATTENDING CONSULTATION NOTE I have examined the patient, reviewed the chart on 15-Jun-18, discussed the patient and hav e formulated the assessment and plan with the infectious diseases team. The consultation not e provided by medical student Tanvir Ayala reflect my assessment and plan, and I have documen dilcia any additions or exceptions. Mr. 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 He is now three days status post I&D, and polyethylene liner exchange wi th retention of hardware, and is clinically stable on antibiotics with mild local symptoms a nd no evidence of systemic infection. Agree with recommendations for six weeks of intravenou s antibiotic therapy with cefazolin as outlined. We have discussed with patient the possibil ity of treatment failure requiring repeat surgery, due to the one stage partial revision a pproach with presence of retained hardware. I have spent 60 minutes in management of this patient, including greater than 50% in couns eling and/or coordination of care. Ishaan Villalobos MD [facility], Pharm[facility] - 06/14/2018 7:36 PM PDT Pharmacy Services: Pharmacist-Dosed Vancomycin - Monitoring Note Assessment/Plan: - Vancomycin trough level was drawn at 1800 today, 06/14/18. Level was drawn approximately 2 4 hours after the first dose of 1250mg q24h (and initial dose of 1000mg given in OR). At 12. 9 mg/L, the level is within the therapeutic range for Right total knee prosthetic joint infe ction s/p drainage and polyethylene exchange 06/13 (goal ~15 mg/L). - Continue with current regimen of 1250 mg (13mg/kg) IV every 24 hours. Pharmacist will f ollow renal labs/urine output and reassess daily for need to recheck trough and place order when appropriate to assure correct timing of lab draw. - Please page clinical pharmacist [phone]) or call central inpatient pharmacy ([phone]) wit h questions. Subjective/Objective: Júnior Mas, a 78yo male on empiric vancomycin IV. Estimated Creatinine Clearance: 30mL/min Renal function: worsening UOP: ~900mL in last 24 hours Actual body weight: Weight: 94.2 kg (207 lb 10.8 oz) (06/14/18 0557) Labs: CREATININE PLASMA (mg/dL) Date Value 06/14/2018 2.17 (H) 06/14/2018 2.08 (H) 06/13/2018 1.66 (H) BUN, PLASMA (mg/dL) Date Value 06/14/2018 38 (H) 06/14/2018 23 (H) 06/13/2018 27 (H) WHITE CELL COUNT (K/cu mm) Date Value 06/14/2018 12.05 (H) 06/13/2018 11.11 (H) 06/12/2018 11.67 (H) VANCOMYCIN, TROUGH (ug/mL) Date Value 06/14/2018 12.9 Pertinent cultures/sensitivities: CULTURE, TISSUE-PROSTHETIC JOINT INFECTION AER AND MARIELOS [[id number]] (Abnormal) [facility] Collec dilcia: 06/12/18 1354 Lab Status: Preliminary result Specimen: Tissue from Knee - right Updated: 06/14/18 1344 CULTURE RESULT [facility] Staphylococcus epidermidis (A) Ref Range: Narrative: Culture Report: Staphylococcus epidermidis Gram Stain: No squamous epithelial cells Rare polymorphonuclear cells No organisms seen Thank you, Ramon Mercado, PharmD, [facility] Clinical Pharmacist elphine, Torey Adame rmD - 06/14/2018 11:41 AM PDT Pharmacy Services: Warfarin Anticoagulation Note Assessment/Plan: - Therapy Start Date: restarted home therapy on 06/14/18 - Indication: history of provoked deep venous thrombosis in 2013 and vaguely documented his tory of atrial fibrillation, continue until outpatient follow-up - Goal INR Range: 2-3 - Duration of Therapy: TBD - patient to follow-up with PCP regarding continued need for war farin - Latest INR: subtherapeutic at 1.42 today on 06/12/18 after missing several doses of warfar in. - Next INR ordered for tomorrow this evening with vancomycin trough - Warfarin Regimen: Recommend warfarin 5 mg by mouth tonight at 21:00. - Therapeutic Bridge: continue SC heparin for DVT and Stroke prophylaxis until INR therapeu tic. Discussed with primary treatment team, given historical DVT and unclear atrial fibrilla tion diagnosis do not feel patient warrants full therapeutic bridging at this time - Monitor for signs and symptoms of bleeding - Patient Education: Patient education/educational assessment documented in the patient edu cation activity this admission on 06/14/18. - Pharmacy Services will continue to follow and make recommendations. Please page clinical pharmacist [phone]) or call central inpatient pharmacy ([phone]) with questions. Subjective/Objective: Júnior Mas, a 78 year old male admitted 06/11/18 for septic prosthetic R knee joint. Diet: Reports changes to diet: Yes - patient reports minimal dietary intake this admission, breakfast today was his first full meal Patient is receiving continuous tube feedings: No Bruising or bleeding report: None noted Labs: ALBUMIN, PLASMA (LAB) (g/dL) Date Value 06/14/2018 2.1 (L) 06/13/2018 2.3 (L) 06/12/2018 2.6 (L) HEMATOCRIT (%) Date Value 06/14/2018 30.1 (L) 06/13/2018 35.2 (L) 06/12/2018 34.2 (L) HEMOGLOBIN (g/dL) Date Value 06/14/2018 9.9 (L) 06/13/2018 11.7 (L) 06/12/2018 11.4 (L) PLATELET COUNT (K/cu mm) Date Value 06/14/2018 186 06/13/2018 136 (L) 06/12/2018 216 INR (INR) Date Value 06/12/2018 1.42 (H) 06/11/2018 1.31 (H) Patient reports missing warfarin doses: Yes - held 06/12-06/13 (last dose the morning of 06/11, note INR subtherapeutic at admission though) Current medication interactions: Yes - vancomycin may enhance the anticoagulation effects o f warfarin. All other interactions currently accounted for as chronic concomitant therapy. Events affecting anticoagulation (vitamin K, FFP, PRBC administration): None Other anticoagulants/anti-platelet agents: Yes - prophylactic SC heparin Home warfarin regimen: warfarin 5 mg on Friday and 2.5 mg all other days of the week per patient report. He is currently managed by his new PCP Don Estrada MD ([phone]). The patient reports Dr Estrada wanted him to stopped warfarin but he was later told by another p rovider to restart it recently (patient could not remember which provider had him restart th erapy). Currently unclear whether the patient needs to continue chronic therapy or not, he w ill follow-up with his PCP after discharge. Assessment/Plan: Added to top of note Thank you for the consult, Evgeny Akers PharmD, [facility] Pager [phone] Evgeny Robles PharmD - 06/13/2018 8:41 AM PDTPharmacist Managed Vancomycin: Initial Therapy Note Assessment/Plan: - Start vancomyin 1250 mg (~15 mg/kg) IV every 24 hours. First dose to be given at 18:00 to day (~20 hours after 1000 mg dose given in OR yesterday). - Pharmacist will order a trough level prior to dose of vancomycin on 06/14/18. Monitor serum creatinine, BUN and urine output daily until stable regimen determined. Can d ecrease serum creatinine and BUN monitoring to weekly once on stable regimen. Please page clinical pharmacist [phone]) or call central inpatient pharmacy ([phone]) with q uestions. Subjective/Objective: Indication: infectious disorder of joint Therapy start date: 06/12/18 Anticipated duration: TBD Goal trough: ~15 mg/L Urine output: unavailable for most of the past 24 hours Renal function: stable , current SCr 1.66 (Baseline SCr 1.6-1.8) Actual body weight: Weight: 86.7 kg (191 lb 1.6 oz) (06/13/18 2407) Pertinent cultures/sensitivities: 06/12/18 blood and tissue cultures - in process Thank you for the consult, Evgeny Akers PharmD, [facility] Pager [phone] Harley Echols MD - 06/11/2018 7:27 PM PDT [facility] DEPARTMENT OF ORTHOPAEDICS & REHABILITATION HISTORY & PHYSICAL EXAMINATION Patient: Júnior Mas Encounter Date: 06/11/2018 Attending Physician: Maral Leon MD HISTORY OF PRESENT ILLNESS: Júnior Mas is a 78 year old male with CHF, gout, CAD with prior OR, DMII, HTN who presents with 2 weeks of progressive right knee pain, stiffness, fevers and malaise. He had his tota l knee arthroplasty done in [address] Hurst at [facility] for advance d DJD. He's had no problems with his knee replacement until 2 weeks ago. Denies any trauma, recent infection, colonoscopy or dental procedure. He has chronic venous stasis with blister formation on the RLE. He denies any pain or complaints elsewhere. He presents as a transfer from an [facility] hospital where there was a concern for a septic prost hetic knee. ESR was 112, CRP 159 and WBC count of 8. An arthrocentesis was performed today w hich demonstrated 78K WBC (95% PMN), 90K RBCs, no crystal and no organisms seen with culture s pending. He was transferred to [facility] for further management of a septic prosthetic knee. Implants: [employer] Triathlon Total Knee System 1. Size 4 beaded press fit femoral component 2. Size 5 tibial tray 3. Size 5x13mm tibial insert 4. Size 38 asymmetric polyethylene patellar button PAST MEDICAL HISTORY: No date: Congestive heart failure (HCC) No date: Coronary atherosclerosis No date: Diabetes mellitus (HCC) No date: Essential hypertension PAST SURGICAL HISTORY: No past surgical history on file. SOCIAL HISTORY: reports that he has never smoked. He has never used smokeless tobacco., reports that he d oes not drink alcohol., reports that he does not use drugs. MEDICATIONS: None ALLERGIES: is allergic to sulfa (sulfonamide antibiotics). FAMILY HISTORY: reviewed REVIEW OF SYSTEMS: A 10 point review of systems was completed and the pertinent positives and negatives are no dilcia above in the history of present illness. PHYSICAL EXAMINATION VITALS: Pulse: 96 BP: 140/55 Temp: 37.1 C (98.8 F) SpO2: 97 % Resp: 16 GENERAL: appropriate, oriented CARD/PULM: appropriate effort, not auscultated NECK: not in cervical collar PELVIS: not evaluated RIGHT LOWER EXTREMITY: Inspection: Midline incision over knee well healed, chronic venous stasis skin changes wit h ulcerations at mid tibia Palpation: Warm to touch around knee, TTP over lateral and medial tibial joint line ROM: full A/ROM ankle, foot, toes; passive flexion of knee to 80 degrees mildly painful Motor: fires tibialis anterior, fires gastrocsoleus complex, fires EHL, fires FHL, fire s quads, fires hamstrings, fires hip flexors Sensory: grossly intact to light touch, medial, lateral, dorsal, 1st dorsal web space, p lantar Vascular: digits warm & well perfused, capillary refill < 2 seconds Reflexes: not performed LABORATORY DATA: Lab Results Component Value Date/Time NA 135 (L) 06/11/2018 06:12 PM K 3.8 06/11/2018 06:12 PM CR 2.01 (H) 06/11/2018 06:12 PM HCT 31.7 (L) 06/11/2018 06:12 PM WBC 9.95 06/11/2018 06:12 PM PLT 188 06/11/2018 06:12 PM DIAGNOSTIC IMAGING: XR right knee, per my read demonstrate: small radiolucency at anterior femur along femoral component, no radiolucency around tibial component, no fracture appreciated, patella with ly tic lesions. ASSESSMENT: Júnior Mas is a 78 y.o. M with the following orthopaedic injuries/concerns: right knee pro sthetic joint infection. The patient is stable. ESR and CRP are both elevated and synovial f luids analysis is suggestive of infection with 78K WBC and no crystals seen. Given the tempo rality of surgery and infection being 5 years apart, the patient will likely need an I&D and staged revision of his right TKA. The has been marked, consented and added on to the OR [facility] edu. Admitted to hospitalist service; keep NPO. PLAN: Disposition: admit to clinical hospitalist service Surgery: yes, I&D with staged revision tomorrow Diet: npo effective now Further Imaging: no additional at this time Supervision: Plan has been discussed with Dr. Leon. Follow up:Please call the clinic to make a follow up appointment in approximately [address] [facility] ORTHO TRAUMA & FRACTURE, The orthopaedics consult pager is #[phone], please call with questions. Harley Weaver MD Resident Department of Orthopaedics Pager [phone] [facility] [place] Department of Orthopaedics & Rehabilitation [address] [facility] Mail Code: [id number] [facility] [id number] Associated attestation - Ghassan Sherman MD - 06/12/2018 2:57 PM PDTORTHO STAFF NOTE I have personally seen, examined, and performed and independent history and physical exam o n Júnior Mas today. I have discussed the findings with the orthopaedic trauma team resident s and agree with the full plan as detailed in the note above. Júnior Mas is a 78 y.o. male presents with an infected right TKA. We discussed this. On exam the right knee is painful with midl swelling. He has distal venous staris changes with an ulcer. This may be the source of the infection. His symptoms have been present for less than three weeks. He lal significant medical morbid ity to surgery. We discused options including antibiotics alone, I&D/poly exchange, single stage revision and two satage revision. I think given his medical issues and chronicity of infection perhaps he would be best served by an I&D with poly exchange. Full pARQ held. W ill proceed. I discussed the diagnosis, imaging studies, treatment plan and prognosis with the patient and resident. I have reviewed and the above note and agree with the plan. Please do not he sitate to call me for questions. GHASSAN SHERMAN MD [facility] [address] [id number] [place] [address] documented in this encounter ED Notes Carla Diaz RN - 06/12/2018 10:50 AM PDTSBAR given to RN in PACU. arla Diaz RN - 06/12/2018 9:29 AM P DTMD paged regarding low CBG. 9:2 9 AM PDTCarla Diaz RN - 06/12/2018 9:05 AM PDTPt given one 4 oz juice. Pt AOx4. Will recheck in 15 mins ndCarla moyer RN - 06/12/2018 8:58 AM PDTMD scott called back and acknowledged page. No furt her orders. Will get in touch with Ortho to confirm plan of care arla Diaz RN - 06/12/2018 8:55 AM PDTMD rankin geluis regarding plan of care. arla Diaz RN - 06/12/2018 7:59 AM PDTI have assumed care of this patient. SBAR from FLY Cadet hichi Harry RN - 06/12/2018 7:25 AM PDTI have relinquished care of this patient to Edilma saucedo RN. Huseyin Landrum MD - 06/12/2018 7:04 AM PDTFormatting of this note might be different from the orig inal. IPAS(S) Handoff Note I received sign-out and accepted care of this patient from the departing resident and atten ding at 7:04 AM. Please see the primary providers note for complete elements of the histo ry, physical exam, and ED course. Illness Severity: Stable Patient Summary: Most recent vital signs: BP 130/72 | Pulse 95 | Temp 37.3 C | RR 16 | Wt 88.9 kg (196 lb) | SpO2 96% Júnior Mas is a 78 y.o. male presented to the ED with R knee arthroplasty infection. Ld g for washout in AM and possible revision tomorrow. Boarding with Hospitalist. Lab and imaging results: Lab Results Results for orders placed or performed during the hospital encounter of 06/11/18 COMPLETE METABOLIC SET (NA,K,CL,CO2,BUN,CREAT,GLUC,CA,AST,ALT,BILI TOTAL,ALK PHOS,ALB,PROT TOTAL) Result Value Ref Range GLUCOSE, PLASMA (LAB) 199 (H) 70 - 99 mg/dL BUN, PLASMA (LAB) 37 (H) 6 - 20 mg/dL CREATININE PLASMA (LAB) 2.01 (H) 0.70 - 1.30 mg/dL EGFR - [place] 39 (L) >60 mL/min EGFR NON -[place] 32 (L) >60 mL/min SODIUM, PLASMA (LAB) 135 (L) 136 - 145 mmol/L POTASSIUM, PLASMA (LAB) 3.8 3.4 - 5.0 mmol/L CHLORIDE, PLASMA (LAB) 99 97 - 108 mmol/L TOTAL CO2, PLASMA (LAB) 31 21 - 32 mmol/L CALCIUM, PLASMA (LAB) 8.5 (L) 8.6 - 10.2 mg/dL CALCIUM(ALB CORRECTED) 9.5 8.6 - 10.2 mg/dL BILIRUBIN TOTAL 0.7 0.3 - 1.2 mg/dL TOTAL PROTEIN, PLASMA (LAB) 7.3 6.4 - 8.2 g/dL ALBUMIN, PLASMA (LAB) 2.8 (L) 3.5 - 4.7 g/dL ALK PHOS 51 (L) 56 - 119 U/L AST(SGOT) 49 (H) <=41 U/L ALT (SGPT) 65 (H) <=60 U/L ANION GAP 5 4 - 11 mmol/L ANION GAP(ALB CORRECTED) 8 4 - 11 mmol/L POTASSIUM CMNT No Hemo BILI T CMNT No Hemo AST CMNT No Hemo BLOOD BANK HOLD TUBE - DON T PROCESS Result Value Ref Range SPECIMEN COLLECTED, HELD Sample received with adeq label/volume to process SEDIMENTATION RATE Result Value Ref Range SEDIMENTATION RATE 87 (H) 0 - 20 mm/hr C-REACTIVE PROTEIN Result Value Ref Range C-REACTIVE PROTEIN 143.0 (H) <10.0 mg/L INR Result Value Ref Range INR 1.31 (H) 0.90 - 1.20 INR APTT (ACT. PART. THROMBO TIME) Result Value Ref Range APTT 36.5 (H) 26.0 - 36.0 seconds CBC AND AUTO DIFF Result Value Ref Range WHITE CELL COUNT 9.95 3.50 - 10.80 K/cu mm RED CELL COUNT 3.44 (L) 4.50 - 6.00 M/cu mm HEMOGLOBIN 10.8 (L) 13.5 - 17.5 g/dL HEMATOCRIT 31.7 (L) 41.0 - 53.0 % MCV 92.2 80.0 - 100.0 fL MCHC 34.1 32.0 - 36.0 g/dL RDW SD 62.1 (H) 35.1 - 46.3 fL PLATELET COUNT 188 150 - 400 K/cu mm MPV 9.3 (L) 9.7 - 12.3 fL NRBC% 0.2 0.0 - 0.3 % NRBC# 0.02 0.00 - 0.02 K/cu mm NEUTROPHIL % 65.9 50.0 - 70.0 % LYMPHOCYTE % 21.3 18.0 - 42.0 % MONOCYTE % 11.4 (H) 3.5 - 9.0 % EOS % 0.3 (L) 1.0 - 3.0 % BASO % 0.3 0.0 - 2.0 % IG% 0.8 0.0 - 1.0 % NEUTROPHIL # 6.56 1.80 - 7.70 K/cu mm LYMPHOCYTE # 2.12 1.00 - 4.80 K/cu mm MONOCYTE # 1.13 (H) 0.10 - 0.90 K/cu mm EOS # 0.03 0.00 - 0.50 K/cu mm BASO # 0.03 0.00 - 0.10 K/cu mm IG# 0.08 0.00 - 0.10 K/cu mm Imaging Results (last 24 hours) X-ray Knee 2 Views Right Result Date: 06/11/2018 EXAM: KNEE 2 VIEWS RIGHT HISTORY: knee pain. History of gout. Total knee arthroplasty in 2 013. 2 weeks of knee pain. Concern for septic prosthetic knee with arthrocentesis at outside hospital today demonstrating fluid white blood cell count 78,000 with 95% neutrophils; no c rystals. COMPARISON: None available. FINDINGS: Total knee arthroplasty is noted. 1.5 mm o f lucency is seen along the anterior aspect of the femoral component. No lucency at the tibi al component is identified. Heterogeneous lytic and sclerotic appearance of the patella with calcification of the quadriceps and patellar tendons. No acute fracture identified. Pellegr ini-Stieda lesion noted. Mild osteopenia of the femur and patella adjacent to the arthroplas ties. Moderate suprapatellar joint effusion. Calcified atherosclerotic disease. Moderate sof t tissue swelling. IMPRESSION: Moderate suprapatellar joint effusion, representing known s eptic effusion given recent aspiration. Discussed with Dr. Valle at time of dictation. Lytic and sclerotic appearance to the patella. Comparison with prior radiographs would be helpful to determine chronicity if there is concern for osteomyelitis; radiograph is insensitive fo r acute osteomyelitis. Moderate soft tissue swelling. I have personally reviewed the image s and, if necessary, edited the report. I agree with the report as now presented. Final sig nature: Riky Lewis MD 06/11/2018 8:30 PM Preliminary: Riky Lewis MD Dictation in itiated: Riky Lewis MD 06/11/2018 8:14 PM Action plan (To Do): - ntd ED Course Following Sign Out: No significant events throughout shift. SHAGGY RAVI MD P DT Associated attestation - Dayan Valverde MD - 06/13/2018 10:04 PM Deonte Valverde MD, Faculty Note: I received sign-out and accepted care of this patient from the preceding team. I continued to participate in the care of the patient and discussed the diagnosis, management, and inte rpretation of results with the resident, Dr. Ravi. I have reviewed and agree with the do cumentation in the provider note. Chichi Mackey RN - 06/12/2018 6:05 AM PDTED Nursing Handoff Report Primary focus of stay:Septic arthritis of prosthetic R Knee Pertinent physical findings (Focused assessment, Pain/discomfort, Neuro, Cards/tele and Res p assessment): A&Ox4, 2/10 right knee pain, VSS, lung sounds clear. PMH: right total knee re placement 5 years ago, DM, HTN. Patient presented to ED 06/11 for increased swelling in right knee.R knee aspirated outpatient and abnormal labs included: " ESR, CRP elevated, WBC 79K". Plan for OR for right knee hardware removal and washout. Patient concern (Primary reason for coming to the ED): right knee swelling Psych/social assessment & interventions: No pertinent issues noted. No interventions needed . Safety risks: fall risk Isolation status None Legal status: Voluntary Medical/psychosocial stability: Moderately Stable Transition concerns as related to stability: none Alarm parameter changes: none Care R/T comfort, hygiene, education (i.e., activity, environment, toileting, skin, ADLs, e tc.): Patient up with walker and one assist. Patient BLE red, 2+ edema with chronic ulcers. Orders to follow up on: none Anticipated/pending procedures or disposition: OR Education provided to the patient/family: Patient educated on plan of careElectronically si gned by Chichi Mackey RN at 06/12/2018 6:09 AM Chichi Sanchez RN - 018 4:10 AM PDTPatient assisted to toilet with walker. Call light within patient reach.Elec tronically signed by Chichi Mackey RN at 06/12/2018 4:16 AM Maribel Palencia MD - 06/11/2018 11:16 PM PDTIPAS(S) Handoff Note I received sign-out and accepted care of this patient from the departing resident and atten ding at 11:16 PM. Please see the primary providers note for complete elements of the hist ory, physical exam, and ED course. Illness Severity: Stable Patient Summary: Most recent vital signs: BP 124/55 | Pulse 95 | Temp 37.3 C | RR 16 | Wt 88.9 kg (196 lb) | SpO2 96% Júnior Mas is a 78 y.o. male presented to the ED with R knee arthroplasty infection. Ld huerta for washout in AM and possible revision tomorrow. Boarding with Hospitalist. Action plan (To Do): NTD ED Course Following Sign Out: There were no acute events during my shift. Patient was signed out to the on-coming team in stable condition. MARIBEL JANE MD T Associated attestation - Opal Pepper MD - 06/13/2018 4:20 PM Leanne Haywood Transfer of Care Attestation: Discussed the management with the resident. I have reviewed and agree with the documentatio n in the provider SBAR note. Zoë RN, Мария - 06/11/2018 10:20 PM PDTRN Admission/Transfer Note Reason for admission: Septic arthritis of prosthetic R Knee Pertinent physical findings (Focused assessment, Pain/discomfort, Neuro, Cards/tele and Res p assessment): Pt arrives as a referral c/o right knee pain x2 weeks, HX of right knee place ment x5 years ago. R knee aspirated outpatient and abnormal labs included: " ESR, CRP elevated, WBC 79K" Neuro: A&Ox4, calm and cooperative, agrees with plan of care, dinner ordered and consumed 1 00%, swallow adequate, stand by assist, leg bearing as tolerable, uses a urinal in bed. Skin/Musculoskeletal: R knee swollen, red, painful, pain currently 3/10, tolerable at this time, partial weight bearing, prefers right knee to be elevate with pillow. Stasis dermatiti s bilateral lower extremities. Resp: RR even and unlabored, lungs clear bilateral, O2 sat 96-98% RA. Cardiac: WNL, Edema bilateral, 2+, pulses palpable bilat Pertinent PMHx (See also Code Status, MAR, Results, Allergies, Medication reconciliation & Medical History): Allergies Sulfa PMHX: CAD, CHF, non insulin dependent DM, HTN Restrictions: Regular diet, NPO after midnight Psych/social assessment & interventions: Family involved in care, went home for the night Safety risks (Identify patient triggers/safety concerns & effective interventions): fall ri sk Isolation status: None Legal status: Voluntary Medical/psychosocial stability: Moderately Stable Transport/transitions concerns as related to stability: None Orders to follow up on: transfer to OBS until bed is ready, Surgery in the AM Belongings check: Completed; Unsecured Report called to: Ariana BILL in OBS unit. report called? yes hCichi Sanchez RN - 06/11/2018 10:10 PM PDTI have assumed care of this patient. I received SBAR report pawan Hsieh RN. Patient transported to unit via stretcher and moved from stretcher to bed wit h 2 assist. Patient oriented to call light and bed controls. Bed in low locked position; marycruz l light within patient reach. ilma Jacobo - 06/11/2018 8:22 PM PDTFormatting of this note might be differen t from the original. MEDICAL STUDENT EMERGENCY DEPARTMENT NOTE -- FOR EDUCATIONAL PURPOSES ONLY CC: R Knee pain x 2 weeks HPI: Júnior Mas is a 78 y.o. M with a PMH of CAD, CHF, DM2, and knee osteoarthritis s/p R total knee replacement 5 years ago who presents to the ED for R knee pain for 2 weeks. He lal s experienced worsening stiffness, pain, and fevers which prompted him to see his PCP 1 week ago, who subsequently referred him to his orthopedist who completed an arthrocentesis/labs on that showed elevated ESR, CRP, and synovial fluid with 78K WBC. He was subsequentl y sent here for treatment of presumed infection of his prosthetic knee. He usually ambulates independently but has been needing to use a walker in these last 2 weeks. Has chronic stasis dermatitis of his lower extremities with some ulcers, but has not notice d any recent infection or other illness. States his blood glucose runs ~120s. Last meal at 12 PM today. Last drink was water prior to presentation. PMH: Does not recall last echo or EF. Past Medical History: Diagnosis Date Congestive heart failure (HCC) Coronary atherosclerosis Diabetes mellitus (HCC) Essential hypertension Meds: No current facility-administered medications on file prior to encounter. No current outpatient prescriptions on file prior to encounter. All: Allergies Allergen Reactions Sulfa (Sulfonamide Antibiotics) Rash SH: PCP is Gilma Estrada MD. Never smoker, drinker, or drug user. FH: Noncontributory ROS: Eyes/vision: negative ENT: negative Neuro: negative CV: negative Resp: negative GI: +diarrhea : negative Psych: negative MSK: +knee pain/stiffness Heme: negative Infectious/allergic: +fevers Physical Exam: Filed Vitals: 06/11/2018 6:07 PM 06/11/2018 6:08 PM 06/11/2018 7:51 PM Weight: 88.9 kg (196 lb) BP: 140/55 125/70 Pulse: 96 95 Temp: 37.1 C 36.7 C Resp: SpO2: 97% 96% Gen: NAD, alert and oriented. Head: NCAT EENT: MMM Neck: Supple CV: RRR, no murmur Lungs: CTAB Abd: Obese, soft, NTND. NBS. Ext: Pressure dressing applied to R leg. R knee with well healed prepatellar surgical scar with no overlying erythema, crepitus, or masses. R knee joint has no obvious increased warmt h or erythema compared with left. No popliteal lymph nodes palpable. No lymphangitis evident . Skin: Stasis dermatitis/darkening of skin to distal lower extremities bilaterally. Small pr essure ulcer draining serosanguinous fluid on L larose with no purulence. Psych: Euthymic, appropriate. ED Course/Medical Decision-Making/Results: Patient triaged to 16/16 and nurses notes reviewed. The patient was staffed with Dr. Juancho huerta who was involved in all pertinent aspects of this case. Júnior Mas is a 78 y.o. M with a prosthetic R knee who presents for suspected R knee septi c arthritis. VS stable, he has been afebrile in the ED. He was previously worked up by orthopedic jennifero n as outpatient who completed labs and arthrocentesis concerning for septic arthritis in his R prosthetic knee. Source is difficult to ascertain, but bacteremia from chronic leg wounds are plausible. Diabetes is controlled with metformin only, and he states his sugars typical ly run ~120s and are under control. Low suspicion for sepsis or systemic infection at this t nisha. Cant rule out osteomyelitis at this time. Chemistry remarkable for elevated creatinine, BUN, ESR, CRP, and low albumin. Blood glucose elevated to 199. CBC remarkable for normal WBC 9.95, mild normocytic anemia. Knee X-rays remarkable for soft tissue swelling. No additional ED treatments were given. Orthopedic surgery and internal medicine was consulted who accepted the patient for admissi on. A: ALVINO Septic arthritis of prosthetic R knee P: Admit to internal medicine w/ orthopedic consult Patient expressed understanding 9: 28 AM Мария Chang RN - 06/11/2018 8:15 PM PDTDinner ordered Мария Chang RN - 06/11/2018 7:21 PM PDT I have assumed care of this patient. Report from Lo Acosta ang, Sandra Mack MD - 06/11/2018 6:35 PM PDT ED Individual Provider Note, Sandra Valle MD: HPI Mr. Mas is an 78-yo M w/ hx of CAD, congestive heart failure, non-insulin dependent diabe jed mellitus, hypertension, who p/w right knee pain x 2 weeks associated with fever up to 10 1F. He has a history of a right total knee replacement in 2012 done in [facility]. Right k nee also became more swollen at that time, though without any warmth or redness. Pain worse with any movement and better at rest. He was evaluated by his PCP and started on coumadin for question of DVT, though RLE ultraso und was negative. Seen by Dr. René Yen (orthopedics) in [place] 06/09 with the following labs. - WBC 8.6 - ESR 112 - CRP 159.1 - procalcitonin 0.14 Due to concern for a prosthetic joint infection, he went back today and had right knee arth rocentesis, with 72,000 WBCs. Subsequently transferred here for evaluation by orthopedics. PCP: Gilma Estrada MD Patient Active Problem List Diagnosis Date Noted Pyogenic arthritis of right knee joint, due to unspecified organism (HCC) 06/12/2018 Pyogenic arthritis of right knee joint (HCC) 06/11/2018 Coronary artery disease involving coronary bypass graft without angina pectoris 018 Hypertension 06/11/2018 Ischemic cardiomyopathy 06/11/2018 Systolic heart failure (HCC) 06/11/2018 Obstructive sleep apnea 06/11/2018 Atrial fibrillation (HCC) 06/11/2018 Hyperlipidemia 06/11/2018 Heart block 06/11/2018 Pacemaker-dependent due to [place] cardiac rhythm insufficient to support life 8 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) 06/11/2018 Morbid obesity (HCC) 06/11/2018 CKD (chronic kidney disease), stage III 06/11/2018 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 (HCC) 06/11/2018 Chronic anticoagulation 06/11/2018 Septic arthritis of knee, right (HCC) 06/11/2018 Past Medical History Diagnosis Date Congestive heart failure (HCC) Diabetes mellitus (HCC) Essential hypertension Coronary atherosclerosis Past Surgical History: - right total knee replacement - cataract surgery - PCI Medications Prior to Admission Medications Prescriptions Last Dose Informant Patient Reported? Taking? Isosorbide Dinitrate 40 mg oral capsule, extended release 06/11/2018 at Unknown time Yes Ye s Sig: Take 60 mg by mouth once daily. acetaminophen with codeine (ACETAMINOPHEN-CODEINE) 300-15 mg oral tablet 06/11/2018 at Unkno wn time Yes Yes Sig: Take 1 tablet by mouth every six hours as needed for severe pain. allopurinol 300 mg oral tablet 06/11/2018 at Unknown time Yes Yes Sig: Take 300 mg by mouth once daily. carvedilol 12.5 mg oral tablet 06/11/2018 at Unknown time Yes Yes Sig: Take 12.5 mg by mouth two times daily. Administer with food. cholecalciferol (Vitamin D3) 1,000 unit oral tablet 06/11/2018 at Unknown time Yes Yes Sig: Take 1,000 Units by mouth once daily. colchicine 0.6 mg oral tablet Within last 7 days at Unknown time Yes Yes Sig: Take 0.6 mg by mouth once daily as needed. eplerenone 25 mg oral tablet 06/11/2018 at Unknown time Yes Yes Sig: Take 12.5 mg by mouth once daily. folic acid 0.4 mg oral tablet 06/11/2018 at Unknown time Yes Yes Sig: Take 400 mcg by mouth once daily. glimepiride 0.5 mg oral tablet Within last 30 days at Unknown time Yes Yes Sig: Take by mouth once daily with breakfast. magnesium oxide 400 mg oral tablet 06/11/2018 at Unknown time Yes Yes Sig: Take 400 mg by mouth once daily. metFORMIN 500 mg oral tablet 06/11/2018 at Unknown time Yes Yes Sig: Take 1,000 mg by mouth two times daily. multivitamin oral tablet 06/11/2018 at Unknown time Yes Yes Sig: Take 1 tablet by mouth once daily. simvastatin 40 mg oral tablet 06/11/2018 at Unknown time Yes Yes Sig: Take 40 mg by mouth once daily in the evening. torsemide 20 mg oral tablet 06/11/2018 at Unknown time Yes Yes Sig: Take 20 mg by mouth two times daily. warfarin 2.5 mg oral tablet 06/11/2018 at Unknown time Yes Yes Sig: Take 2.5 mg by mouth once daily. Facility-Administered Medications: None Allergies Allergen Reactions Sulfa (Sulfonamide Antibiotics) Rash Social History reports that he has never used tobacco. He reports that he does not currently drink alcoh ol or use drugs. Family History: non-contributory Review of Systems Complete ROS performed and negative except as noted in HPI. ED Triage Vitals BP Temp Heart Rate Pulse - Plethysmograph Resp SpO2 06/11/18 1808 06/11/18 1808 06/11/18 1808 06/11/18 1951 06/11/18 1807 06/11/18 1808 (!) 140/55 37.1 C (!) 96 95 pulses/min 16 97 % Physical Exam Constitutional: He is oriented to person, place, and time. He appears well-developed and we ll-nourished. HENT: Head: Normocephalic and atraumatic. Mouth/Throat: Oropharynx is clear and moist. Eyes: Conjunctivae and EOM are normal. Neck: Normal range of motion. Neck supple. Cardiovascular: Normal rate, regular rhythm, normal heart sounds and intact distal pulses. Pulmonary/Chest: Effort normal and breath sounds normal. Abdominal: Soft. He exhibits no distension. There is no tenderness. There is no rebound and no guarding. Musculoskeletal: He exhibits edema and tenderness. Well-healed incision over anterior right knee, swelling of knee without warmth/erythema, pa in with passive/active ROM; chronic venous stasis changes of bilateral LEs Neurological: He is alert and oriented to person, place, and time. Skin: Skin is warm and dry. Psychiatric: He has a normal mood and affect. His behavior is normal. Nursing note and vitals reviewed. ED COURSE AND MEDICAL DECISION MAKING: Júnior Mas is a 78 y.o. male presenting with a right knee prosthetic joint infection The vitals and physical exam were notable for the following: swelling and tenderness of rig ht knee. A review of some of the patient s prior medical records was performed using chart review and Care Everywhere. Given the patient's history and exam, work-up with his orthopedic surgeon and [place], he has a right knee prosthetic joint infection. Laboratory and imaging results including ESR, CRP were reviewed and interpreted, and notabl e for the following: - significantly elevated ESR and CRP - arthrocentesis at [place] with 79,000 WBCs The patient received the following in the emergency department (including medications, inte rventions, consultations, and reassessments): - orthopedics consultation, plan for OR tomorrow Given this, patient required admission for further care. We spoke to the [facility] ist service, who accepted patient to their service. ED Medication Administration from 06/11/2018 1804 to 06/12/2018 1030 None Admit Requested: Jun 11, 2018 7:30 PM IMPRESSION: M00.9 Pyogenic arthritis of right knee joint, due to unspecified organism (HCC) PLAN, DISPOSITION AND FOLLOW-UP: Admit. To OR tomorrow. Current Discharge Medication List Birgit Viveros RN - 06/11/2018 6:07 PM PDTSee referral. Coming from orthopedist, c/o R knee swelling and pain s rosa May 27 - diagnostic tap showing 79K white cells, elevated CRP and ESR. Reports low grade fevers - 100F at home. Tdocumented in this encounter Miscellaneous Notes Plan of Care - Padmini Magaña RN - 06/17/2018 10:59 AM PDTNursing Discharge Note Discharge Date: 06/17/2018 Additional Discharge Information: Patient discharging to swing bed at [facility] in [facility]. Reviewed DC to SNF AVS with patient and family, all questions answered, reinforced fo llow up appointments per AVS. PICC line in RUE with dressing CDI at discharge. TINO dressing CDI with green light flashing at discharge. Telephone report given to FLY Vanegas at [facility] facility at 1125. Transportation provided by family in private vehicle. Patient dischar taye in stable condition with all belongings. Discharge Nurse: PADMINI MAGAÑA RN andoff - Galina Varela RN - 06/16/2018 11:09 PM PDTNursing Handoff Patient Daily Goal: rest (06/16/18 5645) Patient Specific Preferences: When asked if pt moves while he is in a recliner, he states " no, once I'm there I stay", education provided on importance of repositioning for pressure i njury prevention even in recliner chair. (06/15/18 1228) [facility] IP NURSE HANDOFF: Araujo hospital course events: 06/12 KNEE INCISION AND DRAINAGE WITH ANT IBIOTIC SPACER PLACEMENT - RIGHT KNEE I&D, POLY EXCHANGE History: DM 2, CHF, CAD, HTN COMFORT/ANXIETY/BEHAVIOR Patient/Family Target: Pt's pain will be controlled to allow for rest, mobilization. Progress to Target: Improving As evidenced by: Júnior continues with Tylenol #3, one tab PO Q6 PRN. He reported mild pain since while sit ting in the recliner, repositioning, and mobilization. RESTORATIVE MEASURES/SELF-MANAGEMENT Patient/Family Target: Pt will wean off of oxygen, back to baseline of maintaining sats >90% on RA. Progress to Target: No Change As evidenced by: Pt still requiring oxygen since surgery. Oxygen requirements fluctuate between 1L and 2L. MD restarted torsemide this yesterday. Mild crackles in bases. Cont to monitor. HEALTH PROMOTION Patient/Family Target: Increase PO intake. Bertrand will have a BM Progress to Target: No Change As evidenced by: Poor PO intake despite encouragement. He states that his water "goes stale so fast and do esn't taste good anymore" so it was refreshed frequently. Júnior stated nothing sounds good to eat or tastes good. He states he doesn't have much of an appetite. Family often brings fo od per Júnior's preference. Bertrand reports that he is unsure of his last BM but believes it was "last " (06/11). H is bowel tones are slow but he is passing gas and denies discomfort. Stool softener and Rios alax given. NURSING ASSESSMENT & RECOMMENDATIONS FORWARD Nursing Assessment of Patient Stability Risk: Moderately unstable Recommendations Forward: Monitor UOP- low urine output since surgery CHS notified- BMS ordered. encourage fluids. PICC in E is central and clear to use. MOBILITY: 1p FWW pivot MOBILITY PLAN:plan to progress walking with PT LAST TIME MOBILIZED: BSC and chair PAIN: T-3 Q6H, last @ 0530 ORDER FOLLOW-UP: - Poor appetite- encourage meals. -meds with applesauce (whole) -wean from oxygen as able -strict I and O -daily weight EDUCATION NEEDS: Ongoing D/C PLAN: Likely to swing bed tomorrow pending renal function andoff - Yesika Magaña RN - 06/16/2018 6:58 PM PDTNursing Handoff Patient Daily Goal: "To get in a recliner, thats what I live in at home." (06/15/18 0 953) Patient Specific Preferences: When asked if pt moves while he is in a recliner, he states " no, once I'm there I stay", education provided on importance of repositioning for pressure i njury prevention even in recliner chair. (06/15/18 8099) [facility] IP NURSE HANDOFF: [facility] hospital course events: 06/12 KNEE INCISION AND DRAINAGE WITH ANT IBIOTIC SPACER PLACEMENT - RIGHT KNEE I&D, POLY EXCHANGE History: DM 2, CHF, CAD, HTN COMFORT/ANXIETY/BEHAVIOR Patient/Family Target: Pt's pain will be controlled to allow for rest, mobilization. Progress to Target: Improving As evidenced by: Júnior continues with Tylenol #3, one tab PO Q6 PRN. He reported mild pain since while sit ting in the recliner, repositioning, and mobilization. RESTORATIVE MEASURES/SELF-MANAGEMENT Patient/Family Target: Pt will wean off of oxygen, back to baseline of maintaining sats >90% on RA. Progress to Target: No Change As evidenced by: Pt still requiring oxygen since surgery. Oxygen requirements fluctuate between 1L and 2L. restarted torsemide this evening. Mild crackles in bases. Cont to monitor. HEALTH PROMOTION Patient/Family Target: Increase PO intake. Progress to Target: No Change As evidenced by: Poor PO intake this shift despite encouragement. He states that his water "goes stale so fast and doesn't taste good anymore" so it was refreshed frequently. Júnior stated nothing s ounds good to eat or tastes good. He states he doesn't have much of an appetite. Family ofte n brings food per Júnior's preference. NURSING ASSESSMENT & RECOMMENDATIONS FORWARD Nursing Assessment of Patient Stability Risk: Moderately unstable Recommendations Forward: Monitor UOP- low urine output since surgery CHS notified- BMS ordered. encourage fluids. PICC placed today in RUE MOBILITY: 1p FWW pivot MOBILITY PLAN:plan to progress walking with PT LAST TIME MOBILIZED: BSC and chair around 1730 PAIN: T-3 Q6H, last @ 1600 ORDER FOLLOW-UP: - Poor appetite- encourage meals. -meds with applesauce (whole) -wean from oxygen as able -strict I and O -daily weight EDUCATION NEEDS: Ongoing D/C PLAN: Likely to swing bed tomorrow pending renal function lan of Care - Candace Gallegos RN - 06/16/2018 2:52 PM PDTProblem: Case Management Goals Goal: Discharge Needs Met Case Management OPAT Plan of Care: [facility] hospital discharge date: 06/17/2018 This patient will be followed for all post hospital OPAT care needs by: [facility] OPAT/[facility], ; IV antibiotic orders were provided to: Other vendor facility, Name: [facility], , , Attn: Emily Mcarthur, Vascular Access proce deepthi note faxed to facility Parenteral supportive orders for labs and vascular access care were provided to: Same as yesika lopez Other details pertinent to OPAT Plan of care: n/a Candace Maldonado RN, 06/16/2018 2:52 PM: lan of [place] - Umm Joy - 06/16/2018 10:24 AM PDTFormatting of this note might be different from the origin al. 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 (spoke with ortho team prior to session; no need for knee immobilizer). Subjective: pt agreeable to PT Pain: did not rate/10 Objective: Upon arrival to room pt found sitting in recliner Chair, not use the bed, sleep s in recliner at home. Sit to/from stand from recliner, wheelchair and bedside commode minimum assist Gait training with FWW: minimum assist, 15 feet with director of rehabilitative services stand by assist and follow ing with wheelchair. Chair to chair transfer front wheeled walker and minimum assist Pt left up in recliner chair, call light/urinal and belongings all in reach. [facility] BASIC MOBILITY Difficulty turning over in bed 3 - A Little - Minimal/Contact Guard Assist/Supervision Difficulty sitting/standing from chair w/ arms 3 - A Little - Minimal/Contact Guard Assist/ Suervision Difficulty moving from supine to sitting on edge of bed 2 - Alot - Maximum/Moderate Assista nce Help needed moving from /to chair/wheelchair 2 - Alot - Maximum/Moderate Assistance Help needed walking in hospital room 3 - A Little - Minimal/Contact Guard assist/Supervisio n Help needed climbing 3-5 steps w/railing 1 - Unable to do/total assistance - Total/Dependen t Assist [facility] Basic Mobility Total Score 14 Interpretation of [facility] Short Form - Basic Mobility: CMS Modifier (G-Code) Score (in points) % of Functional Impairment, Limitation, or Restriction CN 6 100% impaired, limited, restricted CM 7-9 At least 80%, but less than 100% impaired, limited, or restricted CL 10-14 At least 60%, but less than 80% impaired, limited, or restricted CK 15-19 At least 40%, but less than 60% impaired, limited, or restricted CJ 20-22 At least 20%, but less than 40% impaired, limited, or restricted CI 23 At least 1%, but less than 20% impaired, limited, or restricted CH 24 0% impaired, limited, or restricted Assessment: pt making gradual progress See care plan for goals. Updated Plan & Recommendations: Continue per plan of care toward goals progression of gait Frequency 6x per week Discharge Recommendations: 24 hour skilled care;Continued PT at next level of care Equipment recommendations: to be determined . BRICE Blount [id number] andoff - Emily Covarrubias RN - 06/16/2018 6:48 AM PDTNursing Handoff Patient Daily Goal: "To get in a recliner, thats what I live in at home." (06/15/18 0 953) Patient Specific Preferences: When asked if pt moves while he is in a recliner, he states " no, once I'm there I stay", education provided on importance of repositioning for pressure i njury prevention even in recliner chair. (06/15/18 0953) [facility] IP NURSE HANDOFF: [facility] hospital course events: 06/12 KNEE INCISION AND DRAINAGE WITH ANT IBIOTIC SPACER PLACEMENT - RIGHT KNEE I&D, POLY EXCHANGE History: DM 2, CHF, CAD, HTN COMFORT/ANXIETY/BEHAVIOR Patient/Family Target: Pt's pain will be controlled to allow for rest, mobilization. Progress to Target: Improving As evidenced by: Júnior started on Tylenol #3, one tab PO Q6 PRN. He reported mild pain since while sitting in the recliner, repositioning, and mobilization. RESTORATIVE MEASURES/SELF-MANAGEMENT Patient/Family Target: Pt will wean off of oxygen, back to baseline of maintaining sats >90% on RA. Progress to Target: No Change As evidenced by: Pt still requiring oxygen since surgery. Oxygen requirements fluctuate between 1L and 2L overnight depending on if pt is sleeping or not. At one point pt's oxygen went down to 70 pe rcent, needed to be on 3.5 L to get above 90 percent. Rayo AGUILAR had remote pulse ox ordered t o closely monitor pt. Pt also has slight wheezes inspiratory, encouraged IS and cough/ deep breathing. He remained on 1L NC tonight with saturations in the 90s. HEALTH PROMOTION Patient/Family Target: Increase PO intake. Progress to Target: Improving As evidenced by: Poor intake tonight from [id number] despite encouragement. He states that his water "goes stale so fast and doesn't taste good anymore" so it was refreshed frequently. Low UO continu es. Had CBG of 59 on 06/14 am. Júnior stated nothing sounds good to eat or tastes good. He state s he doesn't have much of an appetite. Nutrition consulted placed. NURSING ASSESSMENT & RECOMMENDATIONS FORWARD Nursing Assessment of Patient Stability Risk: Moderately unstable Recommendations Forward: Monitor UOP- low urine output since surgery CHS notified- BMS ordered. encourage fluids. [place] constance of 500 LR given yesterday per Dr. Mercado. MOBILITY: 1p FWW pivot MOBILITY PLAN:plan to progress walking with PT LAST TIME MOBILIZED: BSC around 0300 PAIN: T-3 Q6H ORDER FOLLOW-UP: - Poor appetite- encourage meals. -meds with applesauce (whole) -ween from oxygen as able -strict I and O -daily weight EDUCATION NEEDS: Ongoing D/C PLAN: TBD - likely to SNF in 1-2 days andoff - Marek Magaña RN - 06/15/2018 5:43 PM PDTNursing Handoff Patient Daily Goal: "To get in a recliner, thats what I live in at home." (06/15/18 0 953) Patient Specific Preferences: When asked if pt moves while he is in a recliner, he states " no, once I'm there I stay", education provided on importance of repositioning for pressure i njury prevention even in recliner chair. (06/15/18 1292) [facility] IP NURSE HANDOFF: [facility] hospital course events: 06/12 KNEE INCISION AND DRAINAGE WITH ANT IBIOTIC SPACER PLACEMENT - RIGHT KNEE I&D, POLY EXCHANGE History: DM 2, CHF, CAD, HTN COMFORT/ANXIETY/BEHAVIOR Patient/Family Target: Pt's pain will be controlled to allow him to get up to recliner today Progress to Target: Improving As evidenced by: Júnior started on Tylenol #3, one tab PO Q6 PRN. Received one dose at 1000, has denied maynor n since while sitting in the recliner. Per patient he will want another dose this evening. RESTORATIVE MEASURES/SELF-MANAGEMENT Patient/Family Target: Pt will ween off of oxygen, back to baseline of maintaining sats >90% on RA. Progress to Target: No Change As evidenced by: Pt still requiring oxygen since surgery. Oxygen requirements fluctuate between 1L and 2L overnight depending on if pt is sleeping or not. At one point pt's oxygen went down to 70 pe rcent, needed to be on 3.5 L to get above 90 percent. Rayo AGUILAR had remote pulse ox ordered t o closely monitor pt. Pt also has slight wheezes inspiratory, encouraged IS and cough/ deep breathing. HEALTH PROMOTION Patient/Family Target: Increase PO intake. Progress to Target: Improving As evidenced by: Had CBG of 59 on 8 am. Júnior stated nothing sounds good to eat or tastes good. He sta jed he doesn't have much of an appetite. Nutrition consulted placed. Family brought in food this evening. CBG check after he had already eaten, gave lower dose SSI as his CBGs have bee n lower when checked prior to meals. Monitor at HS check. NURSING ASSESSMENT & RECOMMENDATIONS FORWARD Nursing Assessment of Patient Stability Risk: Moderately unstable Recommendations Forward: Monitor UOP- low urine output since surgery CHS notified- BMS ordered. encourage fluids. [place] constance of 500 LR given today per Dr. Mercado. MOBILITY: 1p FWW pivot MOBILITY PLAN:plan to progress walking with PT LAST TIME MOBILIZED: BSC around 1845 PAIN: T-3 Q6H last at 0925. ORDER FOLLOW-UP: - Poor appetite- encourage meals. -meds with applesauce (whole) -ween from oxygen as able -strict I and O -daily weight EDUCATION NEEDS: Ongoing D/C PLAN: TBD - likely to SNF in 1-2 days lan of [facility] - Umm Joy - 06/15/2018 1:02 PM PDTFormatting of this note might be different from the orig inal. Physical Therapy 06/15/2018 1:02 PM Admitted on 06/11/2018, hospital day 4 Time in 1255 , time out 122 Patient was seen for a total of 24 minutes of direct one on one skilled physical therapy wh ich included 24 minutes of therapeutic activity Present throughout session other than pt and therapist: director of rehabilitative services and student observer Current unit: [facility] [place] Hospital Course: Júnior Mas is a 78 year old, who is s/p right knee arthrotomy with drainage for infection and polyethylene exchange, due to right total knee prosthetic joint infection, on 06/12/18 Relevant Precautions: Per Ghassan Sherman surgical note: full weightbearing on his right l ower extremity; can start physical therapy for knee motion at the two week postop visit. (s poke with ortho team prior to session; no need for knee immobilizer). Subjective: the pain will go up to 10 when I move Pain: 0/10 when not moving Objective: Upon arrival to room pt found reclined back in chair right lower extremity eleva dilcia on pillow and foot rest. assist pt in lowering chair to place feet on the floor. Sit exercise : moderate assist long arc quads right , dorsiflexion , platar flexion all x 1 0 Sit to/from stand minimum assist of 2 and front wheeled walker Pre-gait activity: static stand, steps forward/backwards right lower extremity x 10, left l ower extremity forward back x 5 the 2 steps forward and 2 steps back. Pt fatigued and ready to sit. Return to sitting and prior position, sequential compressio devices donned, pillow under ri ght lower extremity , call light, cell phone and water all in reach. [facility] BASIC MOBILITY Difficulty turning over in bed 2 - Alot - Maximum/Moderate Assistance Difficulty sitting/standing from chair w/ arms 2 - Alot - Maximum/Moderate Assistance Difficulty moving from supine to sitting on edge of bed 2 - Alot - Maximum/Moderate Assista nce Help needed moving from /to chair/wheelchair 1 - Unable to do/total assistance - total/Dep endent Assist Help needed walking in hospital room 1 - Unable to do/total assistance - Total/Dependent As sist Help needed climbing 3-5 steps w/railing 1 - Unable to do/total assistance - Total/Dependen t Assist [facility] Basic Mobility Total Score 9 Interpretation of [facility] Short Form - Basic Mobility: CMS Modifier (G-Code) Score (in points) % of Functional Impairment, Limitation, or Restriction CN 6 100% impaired, limited, restricted CM 7-9 At least 80%, but less than 100% impaired, limited, or restricted CL 10-14 At least 60%, but less than 80% impaired, limited, or restricted CK 15-19 At least 40%, but less than 60% impaired, limited, or restricted CJ 20-22 At least 20%, but less than 40% impaired, limited, or restricted CI 23 At least 1%, but less than 20% impaired, limited, or restricted CH 24 0% impaired, limited, or restricted Assessment: pt making gradual progress. Good participation today See care plan for goals. Updated Plan & Recommendations: Continue per plan of care toward goals gait Frequency 6x per week Discharge Recommendations: 24 hour skilled care;Continued PT at next level of care Equipment recommendations: to be determined BRICE Blount [id number] andoff - Maria Dolores Gurrola RN - 06/15/2018 11:11 AM PDTNursing Handoff Patient Daily Goal: "To get in a recliner, thats what I live in at home." (06/15/18 0 953) Patient Specific Preferences: When asked if pt moves while he is in a recliner, he states " no, once I'm there I stay", education provided on importance of repositioning for pressure i njury prevention even in recliner chair. (06/15/18 0722) [facility] IP NURSE HANDOFF: [facility] hospital course events: 06/12 KNEE INCISION AND DRAINAGE WITH ANT IBIOTIC SPACER PLACEMENT - RIGHT KNEE I&D, POLY EXCHANGE History: DM 2, CHF, CAD, HTN COMFORT/ANXIETY/BEHAVIOR Patient/Family Target: Pt's pain will be controlled to allow him to get up to recliner this AM. Progress to Target: Improving As evidenced by: Bertrand states "I've taken Tylenol 3s at home for over 10 years and they work just fine. Nayana mckeon has sat up to EOB twice this AM, currently at EOB finishing breakfast with family at bedsi de. Recliner found and placed in room for him to sit up in after he is done eating. RESTORATIVE MEASURES/SELF-MANAGEMENT Patient/Family Target: Pt will ween off of oxygen, back to baseline of maintaining sats >90% on RA. Progress to Target: No Change As evidenced by: Pt still requiring oxygen since surgery. Oxygen requirements fluctuate between 1L and 2L overnight depending on if pt is sleeping or not. At one point pt's oxygen went down to 70 pe rcent, needed to be on 3.5 L to get above 90 percent. Rayo AGUILAR had remote pulse ox ordered t o closely monitor pt. Pt also has slight wheezes inspiratory, encouraged IS and cough/ deep breathing. HEALTH PROMOTION Patient/Family Target: Increase PO intake. Progress to Target: Improving As evidenced by: Had CBG of 59 on 06/14 am. Júnior stated nothing sounds good to eat or tastes good. He sta jed he doesn't have much of an appetite. Nutrition consulted placed. Family brought in food this AM his CBG was 134, on moderate sliding scale, did well eating breakfast. NURSING ASSESSMENT & RECOMMENDATIONS FORWARD Nursing Assessment of Patient Stability Risk: Moderately unstable Recommendations Forward: Monitor UOP- low urine output since surgery CHS notified- BMS ordered. encourage fluids. [place] constance of 500 LR given now per Dr. Mercado. MOBILITY: 2pa to edge of bed. Stood and took a couple side steps. MOBILITY PLAN:plan to progress walking with PT LAST TIME MOBILIZED: at EOB 1030 PAIN: T-3 Q6H last at 0925. ORDER FOLLOW-UP: - Poor appetite- encourage meals. -meds with applesauce (whole) -ween from oxygen as able -strict I and O -daily weight EDUCATION NEEDS: D/C PLAN: TBD lan of Care - Ivana Mendez RD - 06/15/2018 11:11 AM PDTProblem: Nutrition Interventions Intervention: Food and nutrient distribution type or amount Nutrition Assessment: research instructor received. Pt does not like food here, but states his appetite is fine. He is on a consistent carbohydrate diet here, but states his has been bringing some food in for him. He does not think his PO or appetite is a concern right now. Noted pt is on HF list as well. He has a hx of CABG, HF (reduced EF in 2016). Pt states he does not currently monitor sodium very carefully, but has changed his diet a lot recently. H e states he has lost 40 lbs intentionally in the past year. Per chart review, he has previou sly followed a low sodium diet. Pt was having issues w/ IV, needing to move to chair, they d id not wish to review diet education at this time. Noted he is on warfarin, per chart this i s not a new med. Nutrition dx: Inadequate oral intake related to dislike of hospital food as evidenced by pt report Recs: - Continue current diet, may benefit from 2 gm Na restriction, but if he is not eating food provided here, this will not make a difference - Encourage po intake as tolerated - Can offer oral supplements prn - Continue MVI - Monitor lytes, replete prn - Bowel regimen prn Goal of nutrition care: To promote adequate po intake Following, Ivana Mendez, MS, RD, LD, CNSC Pager #: [phone] Comments: Júnior Mas is a 78 y.o. 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 Food allergies/intolerances: none noted Diet order: diabetic; PO: 15% of 1 meal yesterday, does not like the food here; his br ought him food from home Labs reviewed Pertinent Meds: 1000 units cholecalciferol, folic acid, MVI, senna, abx, warfarin GI: no BM documented Skin: rt knee incision, left medial leg ulceration Ht: 67" Admit Wt: 84.1 kg IBW: 67.3 kg BMI: 29.04 kg/m2 AdjBW: 71.5 kg Estimated needs: 3447-8637 kcal/day (25-30 kcal/kg AdjBW); 72-107 g protein/day (1-1.5 g/kg AdjBW) [place] - Justus Zapata, RN - 06/15/2018 3:49 AM PDTNursing Handoff [facility] IP NURSE HANDOFF: [facility] hospital course events: 06/12 KNEE INCISION AND DRAINAGE WITH ANT IBIOTIC SPACER PLACEMENT - RIGHT KNEE I&D, POLY EXCHANGE History: DM 2, CHF, CAD, HTN COMFORT/ANXIETY/BEHAVIOR Patient/Family Target: Pt's pain will be controlled to allow for sleep in between cares. Progress to Target: Improving As evidenced by: Pt states pain is tolerable at rest, Júnior has tylenol 3 Q6H available. None needed duri ng night. Sleeping in between cares. RESTORATIVE MEASURES/SELF-MANAGEMENT Patient/Family Target: Pt will ween off of oxygen, back to baseline of maintaining sats >90% on RA. Progress to Target: No Change As evidenced by: Pt still requiring oxygen since surgery. Oxygen requirements fluctuate between 1L and 2L overnight depending on if pt is sleeping or not. At one point pt's oxygen went down to 70 pe rcent, needed to be on 3.5 L to get above 90 percent. Rayo AGUILAR had remote pulse ox ordered t o closely monitor pt. Pt also has slight wheezes inspiratory, encouraged IS and cough/ deep breathing. HEALTH PROMOTION Patient/Family Target: Increase PO intake Progress to Target: Improving As evidenced by: Had CBG of 59 on 06/14 am. Júnior stated nothing sounds good to eat or tastes good. He sta jed he doesn't have much of an appetite. Nutrition consulted placed. NURSING ASSESSMENT & RECOMMENDATIONS FORWARD Nursing Assessment of Patient Stability Risk: Moderately unstable Recommendations Forward: Monitor UOP- low urine output since surgery CHS notified- BMS ordered. encourage fluids. MOBILITY: 2pa to edge of bed. Stood and took a couple side steps. MOBILITY PLAN:plan to progress walking with PT LAST TIME MOBILIZED: up to commode at 0630 PAIN: T-3 Q6H ORDER FOLLOW-UP: - Poor appetite- encourage meals. -meds with applesauce -ween from oxygen as able -strict I and O -daily weight EDUCATION NEEDS: D/C PLAN: TBD Lizette Kamara RN - 06/14/2018 5:38 PM PDTNursing Handoff [facility] IP NURSE HANDOFF: [facility] hospital course events: 06/12 KNEE INCISION AND DRAINAGE WITH ANT IBIOTIC SPACER PLACEMENT - RIGHT KNEE I&D, POLY EXCHANGE History: DM 2, CHF, CAD, HTN COMFORT/ANXIETY/BEHAVIOR Patient/Family Target: Pt's pain will be controlled to allow for sleep in between cares. Progress to Target: Improving As evidenced by: Pt states pain is tolerable at rest, Júnior has tylenol 3 Q6H available. None needed on d ayshift. Sleeping in between cares. HEALTH PROMOTION Patient/Family Target: Increase PO intake Progress to Target: Improving As evidenced by: Had CBG of 59 in am. Did not order lunch. At change of shift 0, ordered peaches and m eatloaf- cbg 215. Júnior stated nothing sounds good to eat or tastes good. He states he doesn 't have much of an appetite. Nutrition consulted placed. For dinner ate peachs, bite of vipul tloaf, OJ and half chicken soup brought in. NURSING ASSESSMENT & RECOMMENDATIONS FORWARD Nursing Assessment of Patient Stability Risk: Moderately unstable Recommendations Forward: Poor appetite- encourage meals. Monitor UOP- no ouput from 2145-3430. CHS notified- BMS ordered. encourage fluids. MOBILITY: 2pa to edge of bed. Stood and took a couple side steps. Dangled for dinner nging 1800 dose. -meds with applesauce -pt has been tachycardic in 100s MOBILITY PLAN:plan to progress walking with PT LAST TIME MOBILIZED: Sat EOB reported to have stood at EOB at 1730 PAIN: T-3 Q6H ORDER FOLLOW-UP: -strict I and O -daily weight EDUCATION NEEDS: D/C PLAN: TBD andoff - Nitesh Mccarthy RN - 06/14/2018 2:13 PM PDTNursing Handoff [facility] IP NURSE HANDOFF: [facility] hospital course events: 06/12 right knee I and D History: DM 2, CHF, CAD, HTN COMFORT/ANXIETY/BEHAVIOR Patient/Family Target: Pt's pain will be controlled to allow for sleep in between cares. Progress to Target: Improving As evidenced by: Pt states pain is tolerable at rest, Júnior has tylenol 3 Q6H available. None needed on d ayshift. Sleeping in between cares. NURSING ASSESSMENT & RECOMMENDATIONS FORWARD Nursing Assessment of Patient Stability Risk: Moderately unstable Recommendations Forward: MOBILITY: A struggle with 2 PA, sat EOB with PT. MOBILITY PLAN:plan to progress walking with PT LAST TIME MOBILIZED: Sat EOB reported to have stood at EOB at 0500 06/13 PAIN: T-3 Q6H ORDER FOLLOW-UP: Vanco trough before 1800 dose. Wait for Pharmacist to verify dose before h anging 1800 dose. -meds with applesauce -pt has been tachycardic in 100s -strict I and O -daily weight EDUCATION NEEDS: D/C PLAN: lan of Care - Adrianna Lazar, PT - 06/14/2018 1:34 PM PDT Physical Therapy Evaluation and Treatment [id number] JÚNIOR MAS [facility] Day: 3 Date of : 1940 Start of care: 06/14/2018 Attending Practitioner: Stephan Mercado MD Primary/Referral Diagnosis/ICD-9: M00.9 Pyogenic arthritis of right knee joint, due to unsp ecified organism (HCC) Insurance: Payor: MEDICARE / Plan: MEDICARE A & B / Product Type: Medicare / Service period from: 06/14/2018 to 09/12/2018 Time in: 1030 Time out: 1106 Patient status: Inpatient. Patient was seen for a total of 36 minutes of direct one on one skilled physical therapy wh ich included 10 minutes of therapeutic activity. Pt seen on 9K Individuals present for session other than therapist and pt: patient and son; [employer] WORKER surjit hylton with mobility portion of session. Consulted/Discussed patient's care with: patient nurse. Brief Hospital Course: Júnior Mas is a 78 year old, who is s/p right knee arthrotomy with drainage for infection and polyethylene exchange, due to right total knee prosthetic joint infection, on 06/12/18 Relevant Precautions: Per Ghassan Sherman surgical note: full weightbearing on his right l ower extremity; can start physical therapy for knee motion at the two week postop visit. (s poke with ortho team prior to session; no need for knee immobilizer). Indication for PT Evaluation: Instruction for safety with mobility following surgery or inj ury Past Medical History: Diagnosis Date Congestive heart failure (HCC) Coronary atherosclerosis Diabetes mellitus (HCC) Essential hypertension No past surgical history on file. Subjective: Initially refuses to participate with PT. Then agreeable. Refused to stand. Refused to get up to chair. Living Environment: Lives With: spouse Living Arrangements: house Home Accessibility: stairs to enter home;ramps present at home Number of Stairs To Enter Home: 2 (may use a ramp, but fell down ramp prior to admission ) Number of Stairs Within Home: 1 (into shower) Transportation Available: car;family or friend will provide Prior level of function: Bed Mobility/Transfers: independent Ambulation Skills: independent Transfer Skills: independent (using walker past few weeks due to LE pain) Stair Skills: Independent ADL Skills: independent Work/Leisure Activity: independent Equipment available at home: walker History of Falls: yes (fell prior to admission going down ramp) Vision/Hearing: hearing aids (very [place]; states he refuses hearing aids) Patient / Family Goal: patient will not state; patient : For patient to return home. Language: Chadian. Barriers: Very [place], not fully attentive. Pain: "lots"; refuses to quantify despite repeated requests from PT. Vital signs: Patient denies dizziness, denies nausea. O2 sats 97% before and after activit y on 1L O2. Cognitive Screen Level of alertness: lethargic. Orientation: Oriented to self, location. Not fully aware of situation. Stated it was Fri (it's Friday), 1917 later stated 1817. Quality of responses: delayed; not always appropriate. Command following: delayed; Able to follow 1 steps commands but not 2 steps commands. Judgment / safety awareness: Poor. Physical Assessment ROM: bilateral upper extremities WFL; left lower extremity WFL; right lower extremity limi dilcia knee flexion and extension otherwise WFL. Strength: Bilateral upper extremities 5/5. Left lower extremity 5/5. Right lower extremity difficult to assess due to patient pain: Able to wiggle toes, dorsif rose and plantar flex, poor quad set. Edema: right lower extremity. Skin Integrity: right lower extremity with bandage and patricia wrap over knee. Posture: increased thoracic kyphosis, forward head and rounded shoulders. Neurological Function Sensation: unable to assess as patient not following directions; denies numbness. Muscle Tone: impaired right lower extremity. Gross Motor: impaired right lower extremity. Fine Motor: not assessed. Balance: Sitting static: contact guard assist. Sitting dynamic: moderate assistance. Standing static: maximum assistance, with front wheeled walker, unable to reach full stand ing posture. Standing dynamic: unable. Mobility & Transfers: Supine to sit: maximum assistance of 2. Sit to supine: maximum assistance of 2. Sit to stand: maximum assistance of 2, with front wheeled walker, unable to reach full sta nding posture. Stand to sit: maximum assistance with front wheeled walker. Scoot: maximum assistance. Stand pivot transfer: unable. Gait: unable. Treatment and education provided this date: Educated on right lower extremity weight bearing, posture, safety, importance of mobility, use of front wheeled walker for sit to stand transfers. Sat at edge of bed, maximum assistance progressing to contact guard assist after focus on m idline. PT, [employer] WORKER and patient encourage patient to get up to a chair, with assistance, patient r efused 4 times. Outcome Measure(s): 5 Time Sit to Stand: unable. >15 seconds predicts recurrent fallers [facility] BASIC MOBILITY Difficulty turning over in bed 2 - Alot - Maximum/Moderate Assistance Difficulty sitting/standing from chair w/ arms 2 - Alot - Maximum/Moderate Assistance Difficulty moving from supine to sitting on edge of bed 2 - Alot - Maximum/Moderate Assista nce Help needed moving from /to chair/wheelchair 1 - Unable to do/total assistance - total/Dep endent Assist Help needed walking in hospital room 1 - Unable to do/total assistance - Total/Dependent As sist Help needed climbing 3-5 steps w/railing 1 - Unable to do/total assistance - Total/Dependen t Assist [facility] Basic Mobility Total Score 9 Interpretation of [facility] Short Form - Basic Mobility: CMS Modifier (G-Code) Score (in points) % of Functional Impairment, Limitation, or Restriction CN 6 100% impaired, limited, restricted CM 7-9 At least 80%, but less than 100% impaired, limited, or restricted CL 10-14 At least 60%, but less than 80% impaired, limited, or restricted CK 15-19 At least 40%, but less than 60% impaired, limited, or restricted CJ 20-22 At least 20%, but less than 40% impaired, limited, or restricted CI 23 At least 1%, but less than 20% impaired, limited, or restricted CH 24 0% impaired, limited, or restricted *This score not officially observed but is implied based on other components of patient's m obility and may be an underestimate Ended session: Patient supine in bed. [employer] WORKER attending to patient. ASSESSMENT: Patient presents s/p right knee arthrotomy with drainage for infection and poly ethylene exchange . Patient baseline level of function is independent, he was using a front wheeled walker the past few weeks due to right lower extremity pain. Additionally he fell d own the ramp at home prior to admission. Upon evaluation today, patient presents with confu zoe, limited cooperation, pain, and right lower extremity weakness. He is not fully orient to time or his current situation. He currently requires assistance with bed mobility. He was able to partially stand, with use of a front wheeled walker, with assist of 2 staff. He would benefit from skilled inpatient physical therapy services to address these impairments and maximize his independence and safety with functional mobility in order to facilitate a s afe return home. Personal factors/Comorbidities; High - 3 or more personal factors. Behavior: Impaired ability to follow commands and Unfocused affect Learning Factors: Cognitive, Coping skills, Appears anxious/dissociated, Ineffective listen ing, Impairment of eye/ear/speech, Difficulty answering conditions regarding treatment. Social Issues: Medical conditions and Housing situation impacts discharge Medical Conditions Impacting Care: Multiple co-morbidities, Geriatric, Cardiac, Obesity, Ph ysically deconditioned, Challenged integumentary system and Orthopedic Body Systems Elements: High - 4 or more elements Body structures & functions: Pain, Strength and Endurance Activity limitations: Impaired bed mobility, Impaired transfers, Impaired gait, Difficulty with stairs and Difficulty with activities of daily living Participation restrictions: Driving and Community activities. Clinical Presentation: High - Unstable: Pain response, Atypical presentation of condition, Expected slow progression of recovery and Rapid decline of current condition leading to hosp italization Clinical decision making: High Complexity: Multiple problems requiring prioritizing interve ntions Complexity: high Júnior's knowledge of disease process: Fair. The patient requires services that can be safely and effectively performed only by a qualif ied therapist to address the aforementioned and highlighted problems and goals. Goals discussed and agreed upon with Újnior and family. This patient has good rehabilitation potential to achieve stated goals and requires continu ed rehabilitation services, given the patient's medical condition is such that the skills of a therapist are required for monitoring and adjustment of interventions. PLAN: Bed mobility, gait and transfer training, balance training, stair training, therapeut ic exercises, patient and family education, ongoing discharge planning and durable medical e quipment evaluation as appropriate. Frequency: 6 times per week Duration: 2 week(s) Goals: Problem: PT Goals- Adult Goal: Functional Mobility Goal - Patient will be independent with supine to sit and sit to supine from a flat bed, no use of bed rails. - Patient will be modified independent sit to stand and stand to sit with front wheeled wal ker. - Patient will ambulate 50 ft modified independent with front wheeled walker. - Patient will safely ascend/descend 2 step(s) stand by assist with front wheeled walker. - Patient will be independent with therapeutic exercise program as prescribed by PT. - Patient will score 20 >/= 24/24 on [facility] Basic Mobility outcomes measure upon discharge. Outcome: Gradual progress toward goal Activity Recommendations for Nursing partners: *Nursing to re-assess per shift as needed.* - Lights on and curtains open during day hours. - Up to chair for meals or 3x/day with sling lift and 2 person assist. - Dangle at edge of bed, 2-3 times a day with assist of 2. DISCHARGE RECOMMENDATIONS: 24 hour skilled care;Continued PT at next level of care Consulted with: patient nurse re: recommendations Adrianna Costello PT Should this patient discharge from the hospital prior to the next physical therapy treatmen t, this note shall serve as the discharge summary. andoff - Gabriel Zapata RN - 06/14/2018 2:37 AM PDTNursing Handoff [facility] IP NURSE HANDOFF: Araujo hospital course events: 06/12 right knee I and D History: DM 2, CHF, CAD, HTN COMFORT/ANXIETY/BEHAVIOR Patient/Family Target: Pt's pain will be controlled to allow for sleep in between cares. Progress to Target: Improving As evidenced by: Pt states pain is tolerable at rest, taking tylenol 3 Q6H. Sleeping in between cares. NURSING ASSESSMENT & RECOMMENDATIONS FORWARD Nursing Assessment of Patient Stability Risk: Moderately unstable Recommendations Forward: MOBILITY: asst of 2, stood at EOB MOBILITY PLAN:plan to progress walking with PT LAST TIME MOBILIZED:stood at EOB at 0500 06/13 PAIN: 5 mg of oxycodone Q6H ORDER FOLLOW-UP: -meds with applesauce -pt has been tachycardic in 100s -strict I and O -daily weight EDUCATION NEEDS: D/C PLAN: Sa jessie Morales RN - 06/13/2018 1:32 AM PDTNursing Handoff [facility] IP NURSE HANDOFF: Araujo hospital course events: 06/12 right knee I and D History: DM 2, CHF, CAD, HTN COMFORT/ANXIETY/BEHAVIOR Patient/Family Target: Pt's pain will be controlled to allow for sleep in between cares. Progress to Target: Improving As evidenced by: Pt rating pain 8/10 when received from PACU. Medicated with 2.5 mg of oxycodone, sleeping upon reassessment. Pt wanted to increase to 5 mg with next administration, able to stand at bedside after, but had a large increase in pain. NURSING ASSESSMENT & RECOMMENDATIONS FORWARD Nursing Assessment of Patient Stability Risk: Moderately unstable Recommendations Forward: MOBILITY: asst of 2, stood at EOB MOBILITY PLAN:plan to progress walking with PT LAST TIME MOBILIZED:stood at EOB at 0500 PAIN: 5 mg of oxycodone Q6H ORDER FOLLOW-UP: -meds with applesauce -pt has been tachycardic in 100s -strict I and O -daily weight EDUCATION NEEDS: D/C PLAN: Saige Mata RN - 06/12/2018 8:36 PM PDTMegrant Phase I Discharge Criteria (Stable For Transfer): Yes Major deviations/events or pertinent findings of caitlyn-operative stay: hemovac, tino Anticipated post-op needs/devices/follow up: pain mgt * No Diagnosis Codes entered * Surgical Procedure Planned - Actual Procedure Performed: Procedure(s) with comments: KNEE INCISION AND DRAINAGE WITH ANTIBIOTIC SPACER PLACEMENT - RIGHT KNEE I&D, POLY EXCHANGE MICRO x 7 PATH x 2 Anesthesia: General Length of procedure: In Room/Out of Room: 2 Hr 25 Min 49 Sec Surgeon(s) and Role: * Ghassan Sherman MD - Primary OR positioning comments: see OR note Neuro: POSS Sedation Level: Slighty Drowsy Last pain medication given: Pain medication totals: none in PACU Additional pain medication information: see anesthesia record Functional Epidural: No FRONT MAN: No Respiratory: RR: 17, O2 Sat: 98 %, O2 Delivery: Nasal cannula Breath Sounds: WDL Except (SEUN - not diagnosed) TAYLOR: LLL: RUL: RLL: SEUN No Comment: none Cardiac: BP: 113/47 HR: 94 GI: Nausea/Vomiting Status: No Signs/Symptoms: Interventions: Assessment: Comments: toleratingPO : Last void: at 1900 Contact Name: Beth Contact Number: [phone] Family contacted: Yes Comment:updated family Belongings:none in PACU [facility] - Rahel Shaw RN - 06/12/2018 1:22 AM PDTTCRN screened for appropriateness of transfer [facility] if admission or extended OBS stay indicated. May meet clinical inclusion cr iteria but need for orthopedic service may limit options. TCRN to follow up with providers i n AM. D Teaching Not es - Sandra Valle MD - 06/11/2018 6:35 PM PDTSandra Valle MD, Faculty Note: I saw and evaluated the patient and discussed the diagnosis, management, and interpretation of results with the resident. I performed and confirmed the araujo portions of the service. I have reviewed and agree with the documentation in the provider note. Sandra Valle MD [facility] [employer] ransfer Note - Arnie Busby ANP - 06/11/2018 3:19 PM PDT Call from Dr. 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 Presented to clinic today with right knee swelling and pain. Right knee aspirate today: 79k white cells Markedly elevated CRP and sed rate Temp 99.4, vitals stable and normal Spoke with [facility] orthopedic surgeon Dr. Leon who advised transfer to [facility] ED [facility] Rita Alex - 06/11/2018 3:19 PM PDTPt with post procedure infection, R total knee. Connected ref with ROCA[facility] Sanders. [facility] Rita Barker - 06/11/2018 2:09 PM PDTRef previously [facility] ortho Dr[facility] Marla Leon who advised PT to come to [facility] ED. Advised Dr. Yen to call ED to give report when available. Dr. Yen is currently scrubbi ng in for surgery and unable to give report at this time. C/O Infected right knee total replacement. documented in this enc ounter Plan of Treatment Not on filedocumented as of this encounter Procedures + +--------+ + + + | Procedure Name | Priori | Date/Time | Associated Diagnosis | Comments | | | ty | | | | + +--------+ + + + | CAPILLARY BLOOD | Routin | 06/17/2018 | Infection | Results for this | | GLUCOSE (NO CHG), | e | 8:59 AM | associated with | procedure are in the | | POC | | PDT | internal right knee | results section. | | | | | prosthesis, | | | | | | subsequent encounter | | + +--------+ + + + | INR | Routin | 06/17/2018 | | Results for this | | | e | 3:59 AM | | procedure are in the | | | | PDT | | results section. | + +--------+ + + + | BASIC METABOLIC SET | Routin | 06/17/2018 | | Results for this | | (NA, K, CL, TCO2, | e | 3:59 AM | | procedure are in the | | BUN, CR, GLU, CA) | | PDT | | results section. | + +--------+ + + + | CAPILLARY BLOOD | Routin | 06/16/2018 | Infection | Results for this | | GLUCOSE (NO CHG), | e | 11:20 PM | associated with | procedure are in the | | POC | | PDT | internal right knee | results section. | | | | | prosthesis, | | | | | | subsequent encounter | | + +--------+ + + + | CAPILLARY BLOOD | Routin | 06/16/2018 | Infection | Results for this | | GLUCOSE (NO CHG), | e | 6:31 PM | associated with | procedure are in the | | POC | | PDT | internal right knee | results section. | | | | | prosthesis, | | | | | | subsequent encounter | | + +--------+ + + + | X-RAY PORTABLE CHEST | Urgent | 06/16/2018 | | Results for this | | 1 VIEW | | 4:29 PM | | procedure are in the | | | | PDT | | results section. | + +--------+ + + + | PICC LINE | Routin | 06/16/2018 | | Results for this | | | e | 3:40 PM | | procedure are in the | | | | PDT | | results section. | + +--------+ + + + | VAT: PICC INSERTION | Routin | 06/16/2018 | | Results for this | | W/US | e | 2:15 PM | | procedure are in the | | | | PDT | | results section. | + +--------+ + + + | CAPILLARY BLOOD | Routin | 06/16/2018 | Pyogenic arthritis | Results for this | | GLUCOSE (NO CHG), | e | 9:03 AM | of right knee | procedure are in the | | POC | | PDT | joint, due to | results section. | | | | | unspecified organism | | | | | | (HCC) | | + +--------+ + + + | INR | Routin | 06/16/2018 | | Results for this | | | e | 4:23 AM | | procedure are in the | | | | PDT | | results section. | + +--------+ + + + | BASIC METABOLIC SET | Routin | 06/16/2018 | | Results for this | | (NA, K, CL, TCO2, | e | 4:23 AM | | procedure are in the | | BUN, CR, GLU, CA) | | PDT | | results section. | + +--------+ + + + | CAPILLARY BLOOD | Routin | 06/15/2018 | Pyogenic arthritis | Results for this | | GLUCOSE (NO CHG), | e | 10:26 PM | of right knee | procedure are in the | | POC | | PDT | joint, due to | results section. | | | | | unspecified organism | | | | | | (HCC) | | + +--------+ + + + | CAPILLARY BLOOD | Routin | 06/15/2018 | Pyogenic arthritis | Results for this | | GLUCOSE (NO CHG), | e | 6:52 PM | of right knee | procedure are in the | | POC | | PDT | joint, due to | results section. | | | | | unspecified organism | | | | | | (HCC) | | + +--------+ + + + | CAPILLARY BLOOD | Routin | 06/15/2018 | Pyogenic arthritis | Results for this | | GLUCOSE (NO CHG), | e | 9:29 AM | of right knee | procedure are in the | | POC | | PDT | joint, due to | results section. | | | | | unspecified organism | | | | | | (HCC) | | + +--------+ + + + | CBC AND AUTO DIFF | Routin | 06/15/2018 | | Results for this | | | e | 7:04 AM | | procedure are in the | | | | PDT | | results section. | + +--------+ + + + | CBC, WITH | Routin | 06/15/2018 | | Results for this | | DIFFERENTIAL | e | 7:04 AM | | procedure are in the | | | | PDT | | results section. | + +--------+ + + + | BASIC METABOLIC SET | Routin | 06/15/2018 | | Results for this | | (NA, K, CL, TCO2, | e | 7:04 AM | | procedure are in the | | BUN, CR, GLU, CA) | | PDT | | results section. | + +--------+ + + + | SODIUM TOTAL, URINE | Routin | 06/15/2018 | | Results for this | | | e | 6:49 AM | | procedure are in the | | | | PDT | | results section. | + +--------+ + + + | EOSINOPHILS, URINE | Routin | 06/15/2018 | | Results for this | | (SPOT) | e | 6:49 AM | | procedure are in the | | | | PDT | | results section. | + +--------+ + + + | UREA NITROGEN, URINE | Routin | 06/15/2018 | | Results for this | | | e | 6:49 AM | | procedure are in the | | | | PDT | | results section. | + +--------+ + + + | CREATININE, URINE | Routin | 06/15/2018 | | Results for this | | | e | 6:49 AM | | procedure are in the | | | | PDT | | results section. | + +--------+ + + + | CARDIOLOGY | | 06/15/2018 | | Results for this | | | | 12:00 AM | | procedure are in the | | | | PDT | | results section. | + +--------+ + + + | CAPILLARY BLOOD | Routin | 06/14/2018 | Pyogenic arthritis | Results for this | | GLUCOSE (NO CHG), | e | 9:30 PM | of right knee | procedure are in the | | POC | | PDT | joint, due to | results section. | | | | | unspecified organism | | | | | | (HCC) | | + +--------+ + + + | INR | Routin | 06/14/2018 | | Results for this | | | e | 6:00 PM | | procedure are in the | | | | PDT | | results section. | + +--------+ + + + | VANCOMYCIN, TROUGH | Routin | 06/14/2018 | | Results for this | | | e | 6:00 PM | | procedure are in the | | | | PDT | | results section. | + +--------+ + + + | BASIC METABOLIC SET | Routin | 06/14/2018 | | Results for this | | (NA, K, CL, TCO2, | e | 6:00 PM | | procedure are in the | | BUN, CR, GLU, CA) | | PDT | | results section. | + +--------+ + + + | CAPILLARY BLOOD | Routin | 06/14/2018 | Pyogenic arthritis | Results for this | | GLUCOSE (NO CHG), | e | 3:38 PM | of right knee | procedure are in the | | POC | | PDT | joint, due to | results section. | | | | | unspecified organism | | | | | | (HCC) | | + +--------+ + + + | CAPILLARY BLOOD | Routin | 06/14/2018 | Pyogenic arthritis | Results for this | | GLUCOSE (NO CHG), | e | 9:52 AM | of right knee | procedure are in the | | POC | | PDT | joint, due to | results section. | | | | | unspecified organism | | | | | | (HCC) | | + +--------+ + + + | CBC (HEMOGRAM) ONLY | Urgent | 06/14/2018 | | Results for this | | | | 5:24 AM | | procedure are in the | | | | PDT | | results section. | + +--------+ + + + | COMPLETE METABOLIC | Urgent | 06/14/2018 | | Results for this | | SET | | 5:24 AM | | procedure are in the | | (NA,K,CL,CO2,BUN,CRE | | PDT | | results section. | | AT,GLUC,CA,AST,ALT,B | | | | | | ELSA TOTAL,ALK | | | | | | PHOS,ALB,PROT TOTAL) | | | | | + +--------+ + + + | CBC ONLY | Urgent | 06/14/2018 | | Results for this | | | | 5:24 AM | | procedure are in the | | | | PDT | | results section. | + +--------+ + + + | CAPILLARY BLOOD | Routin | 06/13/2018 | Pyogenic arthritis | Results for this | | GLUCOSE (NO CHG), | e | 9:36 PM | of right knee | procedure are in the | | POC | | PDT | joint, due to | results section. | | | | | unspecified organism | | | | | | (HCC) | | + +--------+ + + + | CAPILLARY BLOOD | Routin | 06/13/2018 | Pyogenic arthritis | Results for this | | GLUCOSE (NO CHG), | e | 5:21 PM | of right knee | procedure are in the | | POC | | PDT | joint, due to | results section. | | | | | unspecified organism | | | | | | (HCC) | | + +--------+ + + + | CAPILLARY BLOOD | Routin | 06/13/2018 | Pyogenic arthritis | Results for this | | GLUCOSE (NO CHG), | e | 1:32 PM | of right knee | procedure are in the | | POC | | PDT | joint, due to | results section. | | | | | unspecified organism | | | | | | ([facility]) | | + +--------+ + + + | 12 LEAD ECG | Routin | 06/13/2018 | | Results for this | | | e | 10:28 AM | | procedure are in the | | | | PDT | | results section. | + +--------+ + + + | CAPILLARY BLOOD | Routin | 06/13/2018 | Pyogenic arthritis | Results for this | | GLUCOSE (NO CHG), | e | 8:17 AM | of right knee | procedure are in the | | POC | | PDT | joint, due to | results section. | | | | | unspecified organism | | | | | | ([facility]) | | + +--------+ + + + | CBC (HEMOGRAM) ONLY | Urgent | 06/13/2018 | | Results for this | | | | 4:36 AM | | procedure are in the | | | | PDT | | results section. | + +--------+ + + + | COMPLETE METABOLIC | Urgent | 06/13/2018 | | Results for this | | SET | | 4:36 AM | | procedure are in the | | (NA,K,CL,CO2,BUN,CRE | | PDT | | results section. | | AT,GLUC,CA,AST,ALT,B | | | | | | ELSA TOTAL,ALK | | | | | | PHOS,ALB,PROT TOTAL) | | | | | + +--------+ + + + | CBC ONLY | Urgent | 06/13/2018 | | Results for this | | | | 4:36 AM | | procedure are in the | | | | PDT | | results section. | + +--------+ + + + | COMPLETE METABOLIC | Urgent | 06/12/2018 | | Results for this | | SET | | 10:24 PM | | procedure are in the | | (NA,K,CL,CO2,BUN,CRE | | PDT | | results section. | | AT,GLUC,CA,AST,ALT,B | | | | | | ELSA TOTAL,ALK | | | | | | PHOS,ALB,PROT TOTAL) | | | | | + +--------+ + + + | MAGNESIUM, PLASMA | Urgent | 06/12/2018 | | Results for this | | | | 10:24 PM | | procedure are in the | | | | PDT | | results section. | + +--------+ + + + | CBC (HEMOGRAM) ONLY | Urgent | 06/12/2018 | | Results for this | | | | 10:23 PM | | procedure are in the | | | | PDT | | results section. | + +--------+ + + + | CONFIRMATORY ABO/RH | Routin | 06/12/2018 | | Results for this | | | e | 10:23 PM | | procedure are in the | | | | PDT | | results section. | + +--------+ + + + | INR | Urgent | 06/12/2018 | | Results for this | | | | 10:23 PM | | procedure are in the | | | | PDT | | results section. | + +--------+ + + + | CBC ONLY | Urgent | 06/12/2018 | | Results for this | | | | 10:23 PM | | procedure are in the | | | | PDT | | results section. | + +--------+ + + + | ANTIBODY SCREEN | Routin | 06/12/2018 | | Results for this | | | e | 10:23 PM | | procedure are in the | | | | PDT | | results section. | + +--------+ + + + | TYPE AND SCREEN | Urgent | 06/12/2018 | | Results for this | | | | 10:23 PM | | procedure are in the | | | | PDT | | results section. | + +--------+ + + + | ABO & RH TYPE | Urgent | 06/12/2018 | | Results for this | | | | 10:23 PM | | procedure are in the | | | | PDT | | results section. | + +--------+ + + + | PROCEDURE NOTE | Routin | 06/12/2018 | | Results for this | | | e | 10:09 PM | | procedure are in the | | | | PDT | | results section. | + +--------+ + + + | CAPILLARY BLOOD | Routin | 06/12/2018 | Pyogenic arthritis | Results for this | | GLUCOSE (NO CHG), | e | 9:41 PM | of right knee | procedure are in the | | POC | | PDT | joint, due to | results section. | | | | | unspecified organism | | | | | | (HCC) | | + +--------+ + + + | COMPLETE METABOLIC | Urgent | 06/12/2018 | | Results for this | | SET | | 4:27 PM | | procedure are in the | | (NA,K,CL,CO2,BUN,CRE | | PDT | | results section. | | AT,GLUC,CA,AST,ALT,B | | | | | | ELSA TOTAL,ALK | | | | | | PHOS,ALB,PROT TOTAL) | | | | | + +--------+ + + + | PHOSPHORUS, PLASMA | Urgent | 06/12/2018 | | Results for this | | | | 4:27 PM | | procedure are in the | | | | PDT | | results section. | + +--------+ + + + | CAPILLARY BLOOD | Routin | 06/12/2018 | Pyogenic arthritis | Results for this | | GLUCOSE (NO CHG), | e | 3:40 PM | of right knee | procedure are in the | | POC | | PDT | joint, due to | results section. | | | | | unspecified organism | | | | | | (HCC) | | + +--------+ + + + | PROCEDURE NOTE | Routin | 06/12/2018 | | Results for this | | | e | 2:57 PM | | procedure are in the | | | | PDT | | results section. | + +--------+ + + + | CAPILLARY BLOOD | Routin | 06/12/2018 | Pyogenic arthritis | Results for this | | GLUCOSE (NO CHG), | e | 2:42 PM | of right knee | procedure are in the | | POC | | PDT | joint, due to | results section. | | | | | unspecified organism | | | | | | (HCC) | | + +--------+ + + + | CAPILLARY BLOOD | Routin | 06/12/2018 | Pyogenic arthritis | Results for this | | GLUCOSE (NO CHG), | e | 2:08 PM | of right knee | procedure are in the | | POC | | PDT | joint, due to | results section. | | | | | unspecified organism | | | | | | (HCC) | | + +--------+ + + + | CULTURE, | Routin | 06/12/2018 | | Results for this | | TISSUE-PROSTHETIC | e | 1:54 PM | | procedure are in the | | JOINT INFECTION AER | | PDT | | results section. | | AND [facility]IEL[facility] | | | | | + +--------+ + + + | CULTURE, | Routin | 06/12/2018 | | Results for this | | TISSUE-PROSTHETIC | e | 1:54 PM | | procedure are in the | | JOINT INFECTION AER | | PDT | | results section. | | AND [facility] | | | | | + +--------+ + + + | CULTURE, | Routin | 06/12/2018 | | Results for this | | TISSUE-PROSTHETIC | e | 1:54 PM | | procedure are in the | | JOINT INFECTION AER | | PDT | | results section. | | AND [facility] | | | | | + +--------+ + + + | CULTURE, | Routin | 06/12/2018 | | Results for this | | TISSUE-PROSTHETIC | e | 1:54 PM | | procedure are in the | | JOINT INFECTION AER | | PDT | | results section. | | AND [facility] | | | | | + +--------+ + + + | CULTURE, | Routin | 06/12/2018 | | Results for this | | TISSUE-PROSTHETIC | e | 1:54 PM | | procedure are in the | | JOINT INFECTION AER | | PDT | | results section. | | AND [facility] | | | | | + +--------+ + + + | SURGICAL PATHOLOGY | Routin | 06/12/2018 | | Results for this | | | e | 1:53 PM | | procedure are in the | | | | PDT | | results section. | + +--------+ + + + | CULTURE, BODY FLUID | Urgent | 06/12/2018 | | Results for this | | | | 1:43 PM | | procedure are in the | | | | PDT | | results section. | + +--------+ + + + | KNEE INCISION AND | Urgent | 06/12/2018 | RIGHT KNEE | | | DRAINAGE WITH | | 1:03 PM | PROSTHETIC JOINT | | | ANTIBIOTIC SPACER | Surgic | PDT | INFECTION | | | PLACEMENT | al | | | | + +--------+ + + + | CAPILLARY BLOOD | Routin | 06/12/2018 | Pyogenic arthritis | Results for this | | GLUCOSE (NO CHG), | e | 10:53 AM | of right knee | procedure are in the | | POC | | PDT | joint, due to | results section. | | | | | unspecified organism | | | | | | (HCC) | | + +--------+ + + + | CAPILLARY BLOOD | Routin | 06/12/2018 | Pyogenic arthritis | Results for this | | GLUCOSE (NO CHG), | e | 9:24 AM | of right knee | procedure are in the | | POC | | PDT | joint, due to | results section. | | | | | unspecified organism | | | | | | (HCC) | | + +--------+ + + + | CAPILLARY BLOOD | Routin | 06/12/2018 | Pyogenic arthritis | Results for this | | GLUCOSE (NO CHG), | e | 9:02 AM | of right knee | procedure are in the | | POC | | PDT | joint, due to | results section. | | | | | unspecified organism | | | | | | ([facility]) | | + +--------+ + + + | CARDIOLOGY | | 06/12/2018 | | Results for this | | | | 12:00 AM | | procedure are in the | | | | PDT | | results section. | + +--------+ + + + | CULTURE, BLOOD BACTI | Urgent | 06/11/2018 | | Results for this | | & YEAST [facility] | | 10:29 PM | | procedure are in the | | | | PDT | | results section. | + +--------+ + + + | CULTURE, BLOOD BACTI | Urgent | 06/11/2018 | | Results for this | | & YEAST [facility] | | 10:29 PM | | procedure are in the | | | | PDT | | results section. | + +--------+ + + + | CULTURE, BLOOD BACTI | Urgent | 06/11/2018 | | Results for this | | & YEAST | | 10:29 PM | | procedure are in the | | | | PDT | | results section. | + +--------+ + + + | CULTURE, BLOOD BACTI | Urgent | 06/11/2018 | | Results for this | | & YEAST | | 10:29 PM | | procedure are in the | | | | PDT | | results section. | + +--------+ + + + | X-RAY KNEE 2 VIEWS | Urgent | 06/11/2018 | | Results for this | | RIGHT | | 6:58 PM | | procedure are in the | | | | PDT | | results section. | + +--------+ + + + | RAINBOW HOLD TUBE - | Urgent | 06/11/2018 | | | | RED TOP | | 6:12 PM | | | | | | PDT | | | + +--------+ + + + | RAINBOW HOLD TUBE - | Urgent | 06/11/2018 | | | | BLUE TOP | | 6:12 PM | | | | | | PDT | | | + +--------+ + + + | CBC AND AUTO DIFF | Urgent | 06/11/2018 | | Results for this | | | | 6:12 PM | | procedure are in the | | | | PDT | | results section. | + +--------+ + + + | CBC, WITH | Urgent | 06/11/2018 | | Results for this | | DIFFERENTIAL | | 6:12 PM | | procedure are in the | | | | PDT | | results section. | + +--------+ + + + | COMPLETE METABOLIC | Urgent | 06/11/2018 | | Results for this | | SET | | 6:12 PM | | procedure are in the | | (NA,K,CL,CO2,BUN,CRE | | PDT | | results section. | | AT,GLUC,CA,AST,ALT,B | | | | | | ELSA TOTAL,ALK | | | | | | PHOS,ALB,PROT TOTAL) | | | | | + +--------+ + + + | BLOOD BANK HOLD TUBE | Urgent | 06/11/2018 | | Results for this | | - DON | | 6:12 PM | | procedure are in the | | | | PDT | | results section. | | T PROCESS | | | | | + +--------+ + + + | INR | Urgent | 06/11/2018 | | Results for this | | | | 6:12 PM | | procedure are in the | | | | PDT | | results section. | + +--------+ + + + | C-REACTIVE PROTEIN | Urgent | 06/11/2018 | | Results for this | | | | 6:12 PM | | procedure are in the | | | | PDT | | results section. | + +--------+ + + + | APTT (ACT. PART. | Urgent | 06/11/2018 | | Results for this | | THROMBO TIME) | | 6:12 PM | | procedure are in the | | | | PDT | | results section. | + +--------+ + + + | SEDIMENTATION RATE | Urgent | 06/11/2018 | | Results for this | | | | 6:12 PM | | procedure are in the | | | | PDT | | results section. | + +--------+ + + + | ED INFORMATION | Routin | 06/11/2018 | | Results for this | | EXCHANGE | e | 6:04 PM | | procedure are in the | | | | PDT | | results section. | + +--------+ + + + documented in this encounter Results CAPILLARY BLOOD GLUCOSE (NO CHG), POC (06/17/2018 8:59 AM PDT) + +---------+ + + + | Component | Value | Ref Range | Performed | Pathologist | | | | | At | Signature | + +---------+ + + + | BLOOD | 135 (H) | 70 - 99 mg/dL | [facility] | | | GLUCOSE, | | | [facility] | | | POC | | | [facility] | | | | | | OF CARE | | | | | | TESTS | | + +---------+ + + + + + | Specimen | + + | | + + + + + + + | Performing | Address | City/State/Zipcode | Phone Number | | Organization | | | | + + + + + | [facility] | [address] | [place], [place] | | | [facility] | [address] | [address] | | | TESTS | | | | + + + + + INR (06/17/2018 3:59 AM PDT) + + + + + + | Component | Value | Ref Range | Performed | Pathologist | | | | | At | Signature | + + + + + + | INR | 1.78 (H) | 0.90 - 1.20 INR | [facility] | | | | | | LABORATORY | | | | | | SERVICES, | | | | | | CORE | | + + + + + + + + | Specimen | + + | Blood - Blood | | (substance) | + + + + + | Narrative | Performed At | + + + | INR Therapeutic ranges for full anticoagulation: INR for | [facility] | | Venous Thromboembolism (2.0 - 3.0) INR INR for | LABORATORY | | most patients with mech. valves (2.5 - 3.5) INR | SERVICES, CORE | + + + + + + + + | Performing | Address | City/State/Zipcode | Phone Number | | Organization | | | | + + + + + | [facility] | [address] | [place] [address] | | | SERVICES, CORE | [address] | | | + + + + + BASIC METABOLIC SET (NA, K, CL, TCO2, BUN, CR, GLU, CA) (06/17/2018 3:59 AM PDT) + + + + + + | Component | Value | Ref Range | Performed | Pathologist | | | | | At | Signature | + + + + + + | GLUCOSE, | 154 (H) | 70 - 99 mg/dL | [facility] | | | PLASMA | | | LABORATORY | | | (LAB) | | | SERVICES, | | | | | | CORE | | + + + + + + | BUN, PLASMA | 40 (H) | 6 - 20 mg/dL | [facility] | | | (LAB) | | | LABORATORY | | | | | | SERVICES, | | | | | | CORE | | + + + + + + | CREATININE | 1.73 (H) | 0.70 - 1.30 | [facility] | | | PLASMA | | mg/dL | LABORATORY | | | (LAB) | | | SERVICES, | | | | | | CORE | | + + + + + + | EGFR | 46 (L) | >60 mL/min | [facility] | | | - | | | LABORATORY | | | [place] [employer] | | | SERVICES, | | | | | | CORE | | + + + + + + | EGFR NON | 38 (L) | >60 mL/min | [facility] | | | -[facility] | | | LABORATORY | | | [place] | | | SERVICES, | | | | | | CORE | | + + + + + + | SODIUM, | 138 | 136 - 145 | [facility] | | | PLASMA | | mmol/L | LABORATORY | | | (LAB) | | | SERVICES, | | | | | | CORE | | + + + + + + | POTASSIUM, | 4.0 | 3.4 - 5.0 | [facility] | | | PLASMA | | mmol/L | LABORATORY | | | (LAB) | | | SERVICES, | | | | | | CORE | | + + + + + + | CHLORIDE, | 101 | 97 - 108 mmol/L | [facility] | | | PLASMA | | | LABORATORY | | | (LAB) | | | SERVICES, | | | | | | CORE | | + + + + + + | TOTAL CO2, | 32 | 21 - 32 mmol/L | [facility] | | | PLASMA | | | LABORATORY | | | (LAB) | | | SERVICES, | | | | | | CORE | | + + + + + + | CALCIUM, | 8.5 (L) | 8.6 - 10.2 | [facility] | | | PLASMA | | mg/dL | LABORATORY | | | (LAB) | | | SERVICES, | | | | | | CORE | | + + + + + + | ANION GAP | 5 | 4 - 11 mmol/L | [facility] | | | | | | LABORATORY | | | | | | SERVICES, | | | | | | CORE | | + + + + + + | POTASSIUM | No Hemo | | [facility] | | | CMNT | | | LABORATORY | | | | | | SERVICES, | | | | | | CORE | | + + + + + + + + | Specimen | + + | Blood - Blood | | (substance) | + + + + + | Narrative | Performed At | + + + | GFR is estimated using the MDRD equation recommended by the | [facility] | | National Kidney Disease Education Program. Estimated GFR | LABORATORY | | Interpretive Information: <60 mL/min/1.73 sq m | SERVICES, CORE | | Chronic Kidney Disease <15 mL/min/1.73 sq m | | | Kidney Failure Estimated GFR greater that 60 mL/min/1.73 sq m is of | | | limited clinical value. The MDRD equation is not valid in the | | | following situations: - Patients under 18 years of age - Severe | | | malnutrition or obesity - Vegetarian diet - Rapidly changing kidney | | | function - Amputees, paraplegics, or other muscle-wasting diseses | | + + + + + + + + | Performing | Address | City/State/Zipcode | Phone Number | | Organization | | | | + + + + + | [facility] | [address] | [place] [address] | | | SERVICES, CORE | [address] | | | + + + + + CAPILLARY BLOOD GLUCOSE (NO CHG), POC (06/16/2018 11:20 PM PDT) + +---------+ + + + | Component | Value | Ref Range | Performed | Pathologist | | | | | At | Signature | + +---------+ + + + | BLOOD | 204 (H) | 70 - 99 mg/dL | [facility] | | | GLUCOSE, | | | [facility] | | | POC | | | [facility] | | | | | | OF CARE | | | | | | TESTS | | + +---------+ + + + + + | Specimen | + + | | + + + + + + + | Performing | Address | City/State/Zipcode | Phone Number | | Organization | | | | + + + + + | [facility] | [address] | [place], [place] | | | [facility] | [facility] | [address] | | | TESTS | | | | + + + + + CAPILLARY BLOOD GLUCOSE (NO CHG), POC (06/16/2018 6:31 PM PDT) + +---------+ + + + | Component | Value | Ref Range | Performed | Pathologist | | | | | At | Signature | + +---------+ + + + | BLOOD | 284 (H) | 70 - 99 mg/dL | [facility] - | | | GLUCOSE, | | | [facility] | | | POC | | | [facility] | | | | | | OF CARE | | | | | | TESTS | | + +---------+ + + + + + | Specimen | + + | | + + + + + + + | Performing | Address | City/State/Zipcode | Phone Number | | Organization | | | | + + + + + | [facility] | [address] | [place], [place] | | | [facility] | [address] | [phone] | | | TESTS | | | | + + + + + X-RAY PORTABLE CHEST 1 VIEW (06/16/2018 4:29 PM PDT) + + | Specimen | + + | | + + + + + | Narrative | Performed At | + + + | EXAM: [place] CHEST 1 VIEW HISTORY: PICC placement. 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 COMPARISON: None. FINDINGS: Right upper | RADIOLOGY VOICE | | extremity PICC is obscured by pacer leads although tip is likely in | RECOGNITION 2 | | the mid or lower superior vena cava.. Dual lead pacemaker is in place | | | over the left chest with intact leads. Sternotomy wires are intact. | | | The cardiomediastinal contour is normal. Minimal bibasilar | | | atelectasis/scarring evident. There is blunting of both costophrenic | | | angles, either pleural fluid or thickening. There is no pneumothorax. | | | IMPRESSION: Right upper extremity PICC obscured by pacer leads | | | with tip in either the mid or lower superior vena cava. I have | | | personally reviewed the images and, if necessary, edited the report. I | | | agree with the report as now presented. Final signature: Woody | | | MD Pérez 06/16/2018 4:43 PM Preliminary: Claribel Byrnes MD | | | Dictation initiated: Claribel Byrnes MD 06/16/2018 4:27 PM | | + + + + + | Procedure Note | + + | Service Account, [employer] In Interface - 06/16/2018 4:44 PM PDT EXAM: NH CHEST 1 | | VIEW HISTORY: PICC placement. Prosthetic knee infection. COMPARISON: None. FINDINGS: | | Right upper extremity PICC is obscured by pacer leads although tip is likely in the mid | | or lower superior vena cava.. Dual lead pacemaker is in place over the left chest with | | intact leads. Sternotomy wires are intact. The cardiomediastinal contour is normal. | | Minimal bibasilar atelectasis/scarring evident. There is blunting of both costophrenic | | angles, either pleural fluid or thickening. There is no pneumothorax. IMPRESSION: Right | | upper extremity PICC obscured by pacer leads with tip in either the mid or lower | | superior vena cava. I have personally reviewed the images and, if necessary, edited the | | report. I agree with the report as now presented. Final signature: Woody Ortez MD | | 06/16/2018 4:43 PM Preliminary: Claribel Byrnes MD Dictation initiated: Claribel Byrnes MD | | 06/16/2018 4:27 PM | |IMPRESSION: | | | |Right upper extremity PICC obscured by pacer leads with tip in either the mid or lower supe rior vena cava. | | | |I have personally reviewed the images and, if necessary, edited the report. I agree with [facility] report as now presented. | | | |Final signature: Woody Ortez MD 06/16/2018 4:43 PM | |Preliminary: Claribel Byrnes MD | |Dictation initiated: Claribel Byrnes MD 06/16/2018 4:27 PM | + + + +---------+ + + | Performing | Address | City/State/Zipcode | Phone Number | | Organization | | | | + +---------+ + + | [facility] | | | | | VOICE RECOGNITION 2 | | | | + +---------+ + + PICC LINE (06/16/2018 3:40 PM PDT) + + + | Narrative | Performed At | + + + | Frances Mayberry RN 06/16/2018 3:44 PM PICC LINE Performed | | | by: FRANCES MAYBERRY Authorized by: ANN MAHMOOD PICC/Stacey | | | Insertion Procedure Note Indications:Administration IV fluids and | | | meds, Antibiotics and Frequent lab draws Procedure location: | | | Unit:9 [facility] [place] Room: 14 Providers: Attending name: Attending | | | physically present: No PICC Nurse name: Frances Fair BI APPLICATION DEVELOPER | | | VAT Assisted by Christina March RN BSN VAT Pre-Procedure Consent: | | | written consent obtained Consent given by: Patient Patient | | | identity confirmed per protocol: Yes Team Pause: Immediatly prior to | | | the procedure a pause per protocol was called. A pause verifies | | | correct patient, procedure, equipment, business support and site/side | | | marked as required. CLABSI Prevention Bundle: Skin preparation: | | | Chloraprep Protective barrier: Cap, Mask, Hand scrub, Gown, | | | Gloves and Full body drape. Cap and mask worn by assistive | | | personnel.Sterile Ultrasound techniques (sterile gel, and sterile | | | probe cover) used Dressing: Dressing | | | applied prior of removal of full barrier drape and hemostatic agent | | | applied Procedure Details Patient was placed in appropriate | | | position The vascular anatomy was identified by Ultrasound | | | Guidance.wire through the needle, introducer over the wire, then | | | catheter through the introducer Tip was placed using TLS (Tip | | | Locating System) and TPS (Tip Positioning System). . A | | | non-tunneled PICC Single lumen 4 Fr was placed in the Right Arm | | | area Basilic vein. Catheter lot number: [id number] with a length of 55 | | | cm was selected and trimmed 14 to a remaining length of 41 cm | | | All ports aspirated for blood and flushed with saline Procedure | | | comments: Vessel diameter measured without tourniquet at 0.45cm Upper | | | arm measured 10cm above the AC at 30.5cm Power-injectable line: yes | | | Attempts 1 attempt(s) were made Complications None PICC | | | catheter tip location Chest radiograph ordered to verify placement | | | and Line verified by radiograph Adjustments made after chest film | | | obtained: None External measurement of catheter exposed: 0 cm. PICC | | | catheter tip location: Distal SVC Estimated blood loss: <10mL | | + + + VAT: PICC INSERTION W/US (06/16/2018 2:15 PM PDT) + + | Specimen | + + | | + + + + + | Narrative | Performed At | + + + | See procedure note. | | + + + CAPILLARY BLOOD GLUCOSE (NO CHG), POC (06/16/2018 9:03 AM PDT) + +---------+ + + + | Component | Value | Ref Range | Performed | Pathologist | | | | | At | Signature | + +---------+ + + + | BLOOD | 123 (H) | 70 - 99 mg/dL | [facility] - | | | GLUCOSE, | | | [facility] | | | POC | | | [facility] | | | | | | OF CARE | | | | | | TESTS | | + +---------+ + + + + + | Specimen | + + | | + + + + + + + | Performing | Address | City/State/Zipcode | Phone Number | | Organization | | | | + + + + + | [facility] | [address] | [place], [place] | | | [facility] | [address] | [phone] | | | TESTS | | | | + + + + + INR (06/16/2018 4:23 AM PDT) + + + + + + | Component | Value | Ref Range | Performed | Pathologist | | | | | At | Signature | + + + + + + | INR | 1.51 (H) | 0.90 - 1.20 INR | [facility] | | | | | | LABORATORY | | | | | | SERVICES, | | | | | | CORE | | + + + + + + + + | Specimen | + + | Blood - Blood | | (substance) | + + + + + | Narrative | Performed At | + + + | INR Therapeutic ranges for full anticoagulation: INR for | [facility] | | Venous Thromboembolism (2.0 - 3.0) INR INR for | LABORATORY | | most patients with mech. valves (2.5 - 3.5) INR | SERVICES, CORE | + + + + + + + + | Performing | Address | City/State/Zipcode | Phone Number | | Organization | | | | + + + + + | [facility] | [address] | [place] [address] | | | SERVICES, CORE | [address] | | | + + + + + BASIC METABOLIC SET (NA, K, CL, TCO2, BUN, CR, GLU, CA) (06/16/2018 4:23 AM PDT) + + + + + + | Component | Value | Ref Range | Performed | Pathologist | | | | | At | Signature | + + + + + + | GLUCOSE, | 122 (H) | 70 - 99 mg/dL | [facility] | | | PLASMA | | | LABORATORY | | | (LAB) | | | SERVICES, | | | | | | CORE | | + + + + + + | BUN, PLASMA | 45 (H) | 6 - 20 mg/dL | [facility] | | | (LAB) | | | LABORATORY | | | | | | SERVICES, | | | | | | CORE | | + + + + + + | CREATININE | 2.03 (H) | 0.70 - 1.30 | [facility] | | | PLASMA | | mg/dL | LABORATORY | | | (LAB) | | | SERVICES, | | | | | | CORE | | + + + + + + | EGFR | 38 (L) | >60 mL/min | [facility] | | | - | | | LABORATORY | | | [employer] [employer] | | | SERVICES, | | | | | | CORE | | + + + + + + | EGFR NON | 32 (L) | >60 mL/min | [facility] | | | -[facility] | | | LABORATORY | | | [place] | | | SERVICES, | | | | | | CORE | | + + + + + + | SODIUM, | 135 (L) | 136 - 145 | [facility] | | | PLASMA | | mmol/L | LABORATORY | | | (LAB) | | | SERVICES, | | | | | | CORE | | + + + + + + | POTASSIUM, | 3.7 | 3.4 - 5.0 | [facility] | | | PLASMA | | mmol/L | LABORATORY | | | (LAB) | | | SERVICES, | | | | | | CORE | | + + + + + + | CHLORIDE, | 99 | 97 - 108 mmol/L | [facility] | | | PLASMA | | | LABORATORY | | | (LAB) | | | SERVICES, | | | | | | CORE | | + + + + + + | TOTAL CO2, | 32 | 21 - 32 mmol/L | [facility] | | | PLASMA | | | LABORATORY | | | (LAB) | | | SERVICES, | | | | | | CORE | | + + + + + + | CALCIUM, | 8.2 (L) | 8.6 - 10.2 | [facility] | | | PLASMA | | mg/dL | LABORATORY | | | (LAB) | | | SERVICES, | | | | | | CORE | | + + + + + + | ANION GAP | 4 | 4 - 11 mmol/L | [facility] | | | | | | LABORATORY | | | | | | SERVICES, | | | | | | CORE | | + + + + + + | POTASSIUM | No Hemo | | [facility] | | | [facility] | | | LABORATORY | | | | | | SERVICES, | | | | | | CORE | | + + + + + + + + | Specimen | + + | Blood - Blood | | (substance) | + + + + + | Narrative | Performed At | + + + | GFR is estimated using the MDRD equation recommended by the | [facility] | | National Kidney Disease Education Program. Estimated GFR | LABORATORY | | Interpretive Information: <60 mL/min/1.73 sq m | SERVICES, CORE | | Chronic Kidney Disease <15 mL/min/1.73 sq m | | | Kidney Failure Estimated GFR greater that 60 mL/min/1.73 sq m is of | | | limited clinical value. The MDRD equation is not valid in the | | | following situations: - Patients under 18 years of age - Severe | | | malnutrition or obesity - Vegetarian diet - Rapidly changing kidney | | | function - Amputees, paraplegics, or other muscle-wasting diseses | | + + + + + + + + | Performing | Address | City/State/Zipcode | Phone Number | | Organization | | | | + + + + + | [facility] | [address] | [place] [address] | | | SERVICES, [place] | [address] | | | + + + + + CAPILLARY BLOOD GLUCOSE (NO CHG), POC (06/15/2018 10:26 PM PDT) + +---------+ + + + | Component | Value | Ref Range | Performed | Pathologist | | | | | At | Signature | + +---------+ + + + | BLOOD | 208 (H) | 70 - 99 mg/dL | [facility] - | | | GLUCOSE, | | | [place] | | | POC | | | OPHEL[facility] LO[facility] | | | | | | OF CARE | | | | | | TESTS | | + +---------+ + + + + + | Specimen | + + | | + + + + + + + | Performing | Address | City/State/Zipcode | Phone Number | | Organization | | | | + + + + + | [facility] | [address] | [place], [place] | | | OPHELIA LOZADA [facility] [place] | [facility] | [address] | | | TESTS | | | | + + + + + CAPILLARY BLOOD GLUCOSE (NO CHG), POC (06/15/2018 6:52 PM PDT) + +---------+ + + + | Component | Value | Ref Range | Performed | Pathologist | | | | | At | Signature | + +---------+ + + + | BLOOD | 264 (H) | 70 - 99 mg/dL | [facility] | | | GLUCOSE, | | | [place] | | | POC | | | [facility] | | | | | | OF CARE | | | | | | TESTS | | + +---------+ + + + + + | Specimen | + + | | + + + + + + + | Performing | Address | City/State/Zipcode | Phone Number | | Organization | | | | + + + + + | [facility] | [address] | [place], [place] | | | OP[facility] LOZADA [facility] [place] | [address] | [address] | | | TESTS | | | | + + + + + CAPILLARY BLOOD GLUCOSE (NO CHG), POC (06/15/2018 9:29 AM PDT) + +---------+ + + + | Component | Value | Ref Range | Performed | Pathologist | | | | | At | Signature | + +---------+ + + + | BLOOD | 134 (H) | 70 - 99 mg/dL | [facility] - | | | GLUCOSE, | | | [place] | | | POC | | | [place] | | | | | | OF CARE | | | | | | TESTS | | + +---------+ + + + + + | Specimen | + + | | + + + + + + + | Performing | Address | City/State/Zipcode | Phone Number | | Organization | | | | + + + + + | [facility] | [address] | [place], [place] | | | [facility] OF [facility] | [facility] | [address] | | | TESTS | | | | + + + + + CBC AND AUTO DIFF (06/15/2018 7:04 AM PDT) + + + + + + | Component | Value | Ref Range | Performed | Pathologist | | | | | At | Signature | + + + + + + | WHITE CELL | 10.00 | 3.50 - 10.80 | [facility] | | | COUNT | | K/cu mm | LABORATORY | | | | | | SERVICES, | | | | | | CORE | | + + + + + + | RED CELL | 3.10 (L) | 4.50 - 6.00 | [facility] | | | COUNT | | M/cu mm | LABORATORY | | | | | | SERVICES, | | | | | | CORE | | + + + + + + | HEMOGLOBIN | 9.5 (L) | 13.5 - 17.5 | [facility] | | | | | g/dL | LABORATORY | | | | | | SERVICES, | | | | | | CORE | | + + + + + + | HEMATOCRIT | 28.8 (L) | 41.0 - 53.0 % | [facility] | | | | | | LABORATORY | | | | | | SERVICES, | | | | | | CORE | | + + + + + + | MCV | 92.9 | 80.0 - 100.0 fL | [facility] | | | | | | LABORATORY | | | | | | SERVICES, | | | | | | CORE | | + + + + + + | MCHC | 33.0 | 32.0 - 36.0 | [facility] | | | | | g/dL | LABORATORY | | | | | | SERVICES, | | | | | | CORE | | + + + + + + | RDW SD | 61.3 (H) | 35.1 - 46.3 fL | [facility] | | | | | | LABORATORY | | | | | | SERVICES, | | | | | | CORE | | + + + + + + | PLATELET | 216 | 150 - 400 K/cu | [facility] | | | COUNT | | mm | LABORATORY | | | | | | SERVICES, | | | | | | CORE | | + + + + + + | MPV | 9.4 (L) | 9.7 - 12.3 fL | [facility] | | | | | | LABORATORY | | | | | | SERVICES, | | | | | | CORE | | + + + + + + | NRBC% | 0.0 | 0.0 - 0.3 % | [facility] | | | | | | LABORATORY | | | | | | SERVICES, | | | | | | CORE | | + + + + + + | NRBC# | 0.00 | 0.00 - 0.02 | [facility] | | | | | K/cu mm | LABORATORY | | | | | | SERVICES, | | | | | | CORE | | + + + + + + | NEUTROPHIL | 66.7 | 50.0 - 70.0 % | [facility] | | | % | | | LABORATORY | | | | | | SERVICES, | | | | | | CORE | | + + + + + + | LYMPHOCYTE | 21.4 | 18.0 - 42.0 % | [facility] | | | % | | | LABORATORY | | | | | | SERVICES, | | | | | | CORE | | + + + + + + | MONOCYTE % | 10.5 (H) | 3.5 - 9.0 % | [facility] | | | | | | LABORATORY | | | | | | SERVICES, | | | | | | CORE | | + + + + + + | EOS % | 0.7 (L) | 1.0 - 3.0 % | [facility] | | | | | | LABORATORY | | | | | | SERVICES, | | | | | | CORE | | + + + + + + | BASO % | 0.2 | 0.0 - 2.0 % | [facility] | | | | | | LABORATORY | | | | | | SERVICES, | | | | | | CORE | | + + + + + + | IG% | 0.5Comment: Increased | 0.0 - 1.0 % | [facility] | | | | immature granulocytes | | LABORATORY | | | | (IG) define a left | | SERVICES, | | | | shift. Immature | | CORE | | | | granulocytes (IG) are an | | | | | | automated count of | | | | | | metamyelocytes, | | | | | | myelocytes and | | | | | | promyelocytes. Bands | | | | | | are not included in the | | | | | | IG count. Bands are | | | | | | included in the | | | | | | neutrophil count. | | | | + + + + + + | NEUTROPHIL | 6.67 | 1.80 - 7.70 | [facility] | | | # | | K/cu mm | LABORATORY | | | | | | SERVICES, | | | | | | CORE | | + + + + + + | LYMPHOCYTE | 2.14 | 1.00 - 4.80 | [facility] | | | # | | K/cu mm | LABORATORY | | | | | | SERVICES, | | | | | | CORE | | + + + + + + | MONOCYTE # | 1.05 (H) | 0.10 - 0.90 | [facility] | | | | | K/cu mm | LABORATORY | | | | | | SERVICES, | | | | | | CORE | | + + + + + + | EOS # | 0.07 | 0.00 - 0.50 | [facility] | | | | | K/cu mm | LABORATORY | | | | | | SERVICES, | | | | | | CORE | | + + + + + + | BASO # | 0.02 | 0.00 - 0.10 | [facility] | | | | | K/cu mm | LABORATORY | | | | | | SERVICES, | | | | | | CORE | | + + + + + + | IG# | 0.05 | 0.00 - 0.10 | [facility] | | | | | K/cu mm | LABORATORY | | | | | | SERVICES, | | | | | | CORE | | + + + + + + + + | Specimen | + + | Blood - Blood | | (substance) | + + + + + | Narrative | Performed At | + + + | New pediatric reference ranges for Lymphocyte % in effect April 09 | [facility] | | 2018. New reference ranges for MCV, MCHC, PLT, IG% and IG# | LABORATORY | | effective 03/05/2018 Increased immature granulocytes (IG) define a | SERVICES, CORE | | left shift. Immature granulocytes (IG) are an automated count of | | | metamyelocytes, myelocytes and promyelocytes. Bands are not included | | | in the IG count. Bands are included in the neutrophil count. | | + + + + + + + + | Performing | Address | City/State/Zipcode | Phone Number | | Organization | | | | + + + + + | [facility] | [address] | [place] [address] | | | SERVICES, CORE | [address] | | | + + + + + BASIC METABOLIC SET (NA, K, CL, TCO2, BUN, CR, GLU, CA) (06/15/2018 7:04 AM PDT) + + + + + + | Component | Value | Ref Range | Performed | Pathologist | | | | | At | Signature | + + + + + + | GLUCOSE, | 118 (H) | 70 - 99 mg/dL | [facility] | | | PLASMA | | | LABORATORY | | | (LAB) | | | SERVICES, | | | | | | CORE | | + + + + + + | BUN, PLASMA | 44 (H) | 6 - 20 mg/dL | [facility] | | | (LAB) | | | LABORATORY | | | | | | SERVICES, | | | | | | CORE | | + + + + + + | CREATININE | 2.10 (H) | 0.70 - 1.30 | [facility] | | | PLASMA | | mg/dL | LABORATORY | | | (LAB) | | | SERVICES, | | | | | | CORE | | + + + + + + | EGFR | 37 (L) | >60 mL/min | [facility] | | | - | | | LABORATORY | | | [place] [employer] | | | SERVICES, | | | | | | CORE | | + + + + + + | EGFR NON | 31 (L) | >60 mL/min | [facility] | | | -[facility] | | | LABORATORY | | | [place] | | | SERVICES, | | | | | | CORE | | + + + + + + | SODIUM, | 135 (L) | 136 - 145 | [facility] | | | PLASMA | | mmol/L | LABORATORY | | | (LAB) | | | SERVICES, | | | | | | CORE | | + + + + + + | POTASSIUM, | 4.0 | 3.4 - 5.0 | [facility] | | | PLASMA | | mmol/L | LABORATORY | | | (LAB) | | | SERVICES, | | | | | | CORE | | + + + + + + | CHLORIDE, | 97 | 97 - 108 mmol/L | [facility] | | | PLASMA | | | LABORATORY | | | (LAB) | | | SERVICES, | | | | | | CORE | | + + + + + + | TOTAL CO2, | 29 | 21 - 32 mmol/L | [facility] | | | PLASMA | | | LABORATORY | | | (LAB) | | | SERVICES, | | | | | | CORE | | + + + + + + | CALCIUM, | 8.2 (L) | 8.6 - 10.2 | [facility] | | | PLASMA | | mg/dL | LABORATORY | | | (LAB) | | | SERVICES, | | | | | | CORE | | + + + + + + | ANION GAP | 9 | 4 - 11 mmol/L | [facility] | | | | | | LABORATORY | | | | | | SERVICES, | | | | | | CORE | | + + + + + + | POTASSIUM | No Hemo | | [facility] | | | CMNT | | | LABORATORY | | | | | | SERVICES, | | | | | | CORE | | + + + + + + + + | Specimen | + + | Blood - Blood | | (substance) | + + + + + | Narrative | Performed At | + + + | GFR is estimated using the MDRD equation recommended by the | [facility] | | National Kidney Disease Education Program. Estimated GFR | LABORATORY | | Interpretive Information: <60 mL/min/1.73 sq m | SERVICES, CORE | | Chronic Kidney Disease <15 mL/min/1.73 sq m | | | Kidney Failure Estimated GFR greater that 60 mL/min/1.73 sq m is of | | | limited clinical value. The MDRD equation is not valid in the | | | following situations: - Patients under 18 years of age - Severe | | | malnutrition or obesity - Vegetarian diet - Rapidly changing kidney | | | function - Amputees, paraplegics, or other muscle-wasting diseses | | + + + + + + + + | Performing | Address | City/State/Zipcode | Phone Number | | Organization | | | | + + + + + | [facility] | [address] | [place] [address] | | | SERVICES, CORE | [address] | | | + + + + + EOSINOPHILS, URINE (SPOT) (06/15/2018 6:49 AM PDT) + +-------+ + + + | Component | Value | Ref Range | Performed | Pathologist | | | | | At | Signature | + +-------+ + + + | URINE | <1 | <1 % | [facility] | | | EOSINOPHILS | | | LABORATORY | | | | | | SERVICES, | | | | | | CORE | | + +-------+ + + + + + | Specimen | + + | Urine - Urine | | (substance) | + + + + + + + | Performing | Address | City/State/Zipcode | Phone Number | | Organization | | | | + + + + + | [facility] | [address] | [place] [address] | | | SERVICES, CORE | [address] | | | + + + + + UREA NITROGEN, URINE (06/15/2018 6:49 AM PDT) + +--------+ + + + | Component | Value | Ref Range | Performed | Pathologist | | | | | At | Signature | + +--------+ + + + | UREA NITRO | 743 | mg/dL | [facility] | | | CONC UR | | | LABORATORY | | | | | | SERVICES, | | | | | | CORE | | + +--------+ + + + | URINE | Random | | [facility] | | | INTERVAL | | | LABORATORY | | | | | | SERVICES, | | | | | | CORE | | + +--------+ + + + | URINE | Spot | | [facility] | | | VOLUME | | | LABORATORY | | | | | | SERVICES, | | | | | | CORE | | + +--------+ + + + + + | Specimen | + + | Urine - Urine | | (substance) | + + + + + | Narrative | Performed At | + + + | Reference range based on 24 hour collection time. Patient results | [facility] | | are calculated from actual collection time. | LABORATORY | | | KAREEM FINCH | + + + + + + + + | Performing | Address | City/State/Zipcode | Phone Number | | Organization | | | | + + + + + | [facility] | [address] | [place] [address] | | | KAREEM FINCH | [address] | | | + + + + + CREATININE, URINE (06/15/2018 6:49 AM PDT) + +--------+ + + + | Component | Value | Ref Range | Performed | Pathologist | | | | | At | Signature | + +--------+ + + + | CREATININE | 269.00 | mg/dL | [facility] | | | CONC UR | | | LABORATORY | | | | | | SERVICES, | | | | | | CORE | | + +--------+ + + + | URINE | Random | | [facility] | | | INTERVAL | | | LABORATORY | | | | | | SERVICES, | | | | | | CORE | | + +--------+ + + + | URINE | Spot | | [facility] | | | VOLUME | | | LABORATORY | | | | | | SERVICES, | | | | | | CORE | | + +--------+ + + + + + | Specimen | + + | Urine - Urine | | (substance) | + + + + + | Narrative | Performed At | + + + | Reference range based on 24 hour collection time. Patient results | [facility] | | are calculated from actual collection time. | LABORATORY | | | SERVICES, CORE | + + + + + + + + | Performing | Address | City/State/Zipcode | Phone Number | | Organization | | | | + + + + + | [facility] | [address] | [place] [address] | | | SERVICES, CORE | [address] | | | + + + + + SODIUM TOTAL, URINE (06/15/2018 6:49 AM PDT) + +--------+ + + + | Component | Value | Ref Range | Performed | Pathologist | | | | | At | Signature | + +--------+ + + + | SODIUM CONC | 5 | mmol/L | [facility] | | | URINE | | | LABORATORY | | | | | | SERVICES, | | | | | | CORE | | + +--------+ + + + | URINE | Random | | [facility] | | | INTERVAL | | | LABORATORY | | | | | | SERVICES, | | | | | | CORE | | + +--------+ + + + | URINE | Spot | | [facility] | | | VOLUME | | | LABORATORY | | | | | | SERVICES, | | | | | | CORE | | + +--------+ + + + + + | Specimen | + + | Urine - Urine | | (substance) | + + + + + | Narrative | Performed At | + + + | Reference range based on 24 hour collection time. Patient results | [facility] | | are calculated from actual collection time. | LABORATORY | | | SERVICES, CORE | + + + + + + + + | Performing | Address | City/State/Zipcode | Phone Number | | Organization | | | | + + + + + | [facility] | [address] | [place] [address] | | | SERVICES, CORE | [address] | | | + + + + + CARDIOLOGY (06/15/2018 12:00 AM PDT) + + + | Narrative | Performed At | + + + | | | + + + CAPILLARY BLOOD GLUCOSE (NO CHG), POC (06/14/2018 9:30 PM PDT) + +---------+ + + + | Component | Value | Ref Range | Performed | Pathologist | | | | | At | Signature | + +---------+ + + + | BLOOD | 203 (H) | 70 - 99 mg/dL | [facility] - | | | GLUCOSE, | | | [place] | | | POC | | | [facility] | | | | | | OF CARE | | | | | | TESTS | | + +---------+ + + + + + | Specimen | + + | | + + + + + + + | Performing | Address | City/State/Zipcode | Phone Number | | Organization | | | | + + + + + | [facility] | [address] | [place], [place] | | | [place] [facility] | [address] | [address] | | | TESTS | | | | + + + + + BASIC METABOLIC SET (NA, K, CL, TCO2, BUN, CR, GLU, CA) (06/14/2018 6:00 PM PDT) + + + + + + | Component | Value | Ref Range | Performed | Pathologist | | | | | At | Signature | + + + + + + | GLUCOSE, | 192 (H) | 70 - 99 mg/dL | [facility] | | | PLASMA | | | LABORATORY | | | (LAB) | | | SERVICES, | | | | | | CORE | | + + + + + + | BUN, PLASMA | 38 (H) | 6 - 20 mg/dL | [facility] | | | (LAB) | | | LABORATORY | | | | | | SERVICES, | | | | | | CORE | | + + + + + + | CREATININE | 2.17 (H) | 0.70 - 1.30 | [facility] | | | PLASMA | | mg/dL | LABORATORY | | | (LAB) | | | SERVICES, | | | | | | CORE | | + + + + + + | EGFR | 36 (L) | >60 mL/min | [facility] | | | - | | | LABORATORY | | | [employer] [employer] | | | SERVICES, | | | | | | CORE | | + + + + + + | EGFR NON | 29 (L) | >60 mL/min | [facility] | | | -[facility] | | | LABORATORY | | | [place] | | | SERVICES, | | | | | | CORE | | + + + + + + | SODIUM, | 135 (L) | 136 - 145 | [facility] | | | PLASMA | | mmol/L | LABORATORY | | | (LAB) | | | SERVICES, | | | | | | CORE | | + + + + + + | POTASSIUM, | 4.1 | 3.4 - 5.0 | [facility] | | | PLASMA | | mmol/L | LABORATORY | | | (LAB) | | | SERVICES, | | | | | | CORE | | + + + + + + | CHLORIDE, | 97 | 97 - 108 mmol/L | [facility] | | | PLASMA | | | LABORATORY | | | (LAB) | | | SERVICES, | | | | | | CORE | | + + + + + + | TOTAL CO2, | 34 (H) | 21 - 32 mmol/L | [facility] | | | PLASMA | | | LABORATORY | | | (LAB) | | | SERVICES, | | | | | | CORE | | + + + + + + | CALCIUM, | 8.0 (L) | 8.6 - 10.2 | [facility] | | | PLASMA | | mg/dL | LABORATORY | | | (LAB) | | | SERVICES, | | | | | | CORE | | + + + + + + | ANION GAP | 4 | 4 - 11 mmol/L | [facility] | | | | | | LABORATORY | | | | | | SERVICES, | | | | | | CORE | | + + + + + + | POTASSIUM | No Hemo | | [facility] | | | CMNT | | | LABORATORY | | | | | | SERVICES, | | | | | | CORE | | + + + + + + + + | Specimen | + + | Blood - Blood | | (substance) | + + + + + | Narrative | Performed At | + + + | Please draw vancomycin trough immediately prior to 18:00 dose on | [facility] | | 06/14/18. Hold dose until Pharmacist confirms level is appropriate. | LABORATORY | | Page [phone] or [phone] with questions. Thank you. GFR is | SERVICES, CORE | | estimated using the MDRD equation recommended by the National Kidney | | | Disease Education Program. Estimated GFR Interpretive Information: | | | <60 mL/min/1.73 sq m Chronic Kidney Disease | | | <15 mL/min/1.73 sq m Kidney Failure Estimated | | | GFR greater that 60 mL/min/1.73 sq m is of limited clinical value. | | | The MDRD equation is not valid in the following situations: - | | | Patients under 18 years of age - Severe malnutrition or obesity - | | | Vegetarian diet - Rapidly changing kidney function - Amputees, | | | paraplegics, or other muscle-wasting diseses | | + + + + + + + + | Performing | Address | City/State/Zipcode | Phone Number | | Organization | | | | + + + + + | [facility] | [address] | [place] [address] | | | SERVICES, CORE | [address] | | | + + + + + INR (06/14/2018 6:00 PM PDT) + + + + + + | Component | Value | Ref Range | Performed | Pathologist | | | | | At | Signature | + + + + + + | INR | 1.44 (H) | 0.90 - 1.20 INR | [facility] | | | | | | LABORATORY | | | | | | SERVICES, | | | | | | CORE | | + + + + + + + + | Specimen | + + | Blood - Blood | | (substance) | + + + + + | Narrative | Performed At | + + + | INR Therapeutic ranges for full anticoagulation: INR for | [facility] | | Venous Thromboembolism (2.0 - 3.0) INR INR for | LABORATORY | | most patients with mech. valves (2.5 - 3.5) INR | SERVICES, CORE | + + + + + + + + | Performing | Address | City/State/Zipcode | Phone Number | | Organization | | | | + + + + + | [facility] | [address] | [place] [address] | | | SERVICES, CORE | [address] | | | + + + + + VANCOMYCIN, TROUGH (06/14/2018 6:00 PM PDT) + +-------+ + + + | Component | Value | Ref Range | Performed | Pathologist | | | | | At | Signature | + +-------+ + + + | VANCOMYCIN, | 12.9 | 10.0 - 20.0 | [facility] | | | TROUGH | | ug/mL | LABORATORY | | | | | | SERVICES, | | | | | | CORE | | + +-------+ + + + + + | Specimen | + + | Blood - Blood | | (substance) | + + + + + | Narrative | Performed At | + + + | Please draw vancomycin trough immediately prior to 18:00 dose on | [facility] | | 06/14/18. Hold dose until Pharmacist confirms level is appropriate. | LABORATORY | | Page [phone] or call [phone] with questions. Thank you. | SERVICES, CORE | + + + + + + + + | Performing | Address | City/State/Zipcode | Phone Number | | Organization | | | | + + + + + | [facility] | [address] | [place] [address] | | | SERVICES, CORE | [address] | | | + + + + + CAPILLARY BLOOD GLUCOSE (NO CHG), POC (06/14/2018 3:38 PM PDT) + +---------+ + + + | Component | Value | Ref Range | Performed | Pathologist | | | | | At | Signature | + +---------+ + + + | BLOOD | 216 (H) | 70 - 99 mg/dL | [facility] - | | | GLUCOSE, | | | [facility] | | | POC | | | [facility] | | | | | | OF CARE | | | | | | TESTS | | + +---------+ + + + + + | Specimen | + + | | + + + + + + + | Performing | Address | City/State/Zipcode | Phone Number | | Organization | | | | + + + + + | [facility] | [address] | [place], [place] | | | [facility] CARE | [address] | [address] | | | TESTS | | | | + + + + + CAPILLARY BLOOD GLUCOSE (NO CHG), POC (06/14/2018 9:52 AM PDT) + +--------+ + + + | Component | Value | Ref Range | Performed | Pathologist | | | | | At | Signature | + +--------+ + + + | BLOOD | 59 (L) | 70 - 99 mg/dL | [facility] - | | | GLUCOSE, | | | [facility] | | | POC | | | [facility] | | | | | | OF CARE | | | | | | TESTS | | + +--------+ + + + + + | Specimen | + + | | + + + + + + + | Performing | Address | City/State/Zipcode | Phone Number | | Organization | | | | + + + + + | [facility] | [address] | [place], [place] | | | [facility] CARE | [address] | [phone] | | | TESTS | | | | + + + + + CBC (HEMOGRAM) ONLY (06/14/2018 5:24 AM PDT) + + + + + + | Component | Value | Ref Range | Performed | Pathologist | | | | | At | Signature | + + + + + + | WHITE CELL | 12.05 (H) | 3.50 - 10.80 | [facility] | | | COUNT | | K/cu mm | LABORATORY | | | | | | SERVICES, | | | | | | CORE | | + + + + + + | RED CELL | 3.23 (L) | 4.50 - 6.00 | [facility] | | | COUNT | | M/cu mm | LABORATORY | | | | | | SERVICES, | | | | | | CORE | | + + + + + + | HEMOGLOBIN | 9.9 (L) | 13.5 - 17.5 | [facility] | | | | | g/dL | LABORATORY | | | | | | SERVICES, | | | | | | CORE | | + + + + + + | HEMATOCRIT | 30.1 (L) | 41.0 - 53.0 % | [facility] | | | | | | LABORATORY | | | | | | SERVICES, | | | | | | CORE | | + + + + + + | MCV | 93.2 | 80.0 - 100.0 fL | [facility] | | | | | | LABORATORY | | | | | | SERVICES, | | | | | | CORE | | + + + + + + | MCHC | 32.9 | 32.0 - 36.0 | [facility] | | | | | g/dL | LABORATORY | | | | | | SERVICES, | | | | | | CORE | | + + + + + + | RDW SD | 61.1 (H) | 35.1 - 46.3 fL | [facility] | | | | | | LABORATORY | | | | | | SERVICES, | | | | | | CORE | | + + + + + + | PLATELET | 186 | 150 - 400 K/cu | [facility] | | | COUNT | | mm | LABORATORY | | | | | | SERVICES, | | | | | | CORE | | + + + + + + | MPV | 9.4 (L) | 9.7 - 12.3 fL | [facility] | | | | | | LABORATORY | | | | | | SERVICES, | | | | | | CORE | | + + + + + + | NRBC% | 0.0 | 0.0 - 0.3 % | [facility] | | | | | | LABORATORY | | | | | | SERVICES, | | | | | | CORE | | + + + + + + | NRBC# | 0.00 | 0.00 - 0.02 | [facility] | | | | | K/cu mm | LABORATORY | | | | | | SERVICES, | | | | | | CORE | | + + + + + + + + | Specimen | + + | Blood - Blood | | (substance) | + + + + + | Narrative | Performed At | + + + | New reference ranges for MCV, MCHC, PLT, IG% and IG# effective | [facility] | | 03/05/2018 | LABORATORY | | | SERVICES, CORE | + + + + + + + + | Performing | Address | City/State/Zipcode | Phone Number | | Organization | | | | + + + + + | [facility] | [id number] | [place] [address] | | | SERVICES, CORE | [address] | | | + + + + + COMPLETE METABOLIC SET (NA,K,CL,CO2,BUN,CREAT,GLUC,CA,AST,ALT,BILI TOTAL,ALK PHOS,ALB,PROT TOTAL) (06/14/2018 5:24 AM PDT) + + + + + + | Component | Value | Ref Range | Performed | Pathologist | | | | | At | Signature | + + + + + + | GLUCOSE, | 81 | 70 - 99 mg/dL | [facility] | | | PLASMA | | | LABORATORY | | | (LAB) | | | SERVICES, | | | | | | CORE | | + + + + + + | BUN, PLASMA | 23 (H) | 6 - 20 mg/dL | [facility] | | | (LAB) | | | LABORATORY | | | | | | SERVICES, | | | | | | CORE | | + + + + + + | CREATININE | 2.08 (H) | 0.70 - 1.30 | [facility] | | | PLASMA | | mg/dL | LABORATORY | | | (LAB) | | | SERVICES, | | | | | | CORE | | + + + + + + | EGFR | 37 (L) | >60 mL/min | [facility] | | | - | | | LABORATORY | | | [employer] | | | SERVICES, | | | | | | CORE | | + + + + + + | EGFR NON | 31 (L) | >60 mL/min | [facility] | | | -[facility] | | | LABORATORY | | | [place] | | | SERVICES, | | | | | | CORE | | + + + + + + | SODIUM, | 136 | 136 - 145 | [facility] | | | PLASMA | | mmol/L | LABORATORY | | | (LAB) | | | SERVICES, | | | | | | CORE | | + + + + + + | POTASSIUM, | 3.6 | 3.4 - 5.0 | [facility] | | | PLASMA | | mmol/L | LABORATORY | | | (LAB) | | | SERVICES, | | | | | | CORE | | + + + + + + | CHLORIDE, | 98 | 97 - 108 mmol/L | [facility] | | | PLASMA | | | LABORATORY | | | (LAB) | | | SERVICES, | | | | | | CORE | | + + + + + + | TOTAL CO2, | 34 (H) | 21 - 32 mmol/L | [facility] | | | PLASMA | | | LABORATORY | | | (LAB) | | | SERVICES, | | | | | | CORE | | + + + + + + | CALCIUM, | 8.0 (L) | 8.6 - 10.2 | [facility] | | | PLASMA | | mg/dL | LABORATORY | | | (LAB) | | | SERVICES, | | | | | | CORE | | + + + + + + | CALCIUM(ALB | 9.5 | 8.6 - 10.2 | [facility] | | | CORRECTED) | | mg/dL | LABORATORY | | | | | | SERVICES, | | | | | | CORE | | + + + + + + | BILIRUBIN | 0.9 | 0.3 - 1.2 mg/dL | [facility] | | | TOTAL | | | LABORATORY | | | | | | SERVICES, | | | | | | CORE | | + + + + + + | TOTAL | 6.0 (L) | 6.4 - 8.2 g/dL | [facility] | | | PROTEIN, | | | LABORATORY | | | PLASMA | | | SERVICES, | | | (LAB) | | | CORE | | + + + + + + | ALBUMIN, | 2.1 (L) | 3.5 - 4.7 g/dL | [facility] | | | PLASMA | | | LABORATORY | | | (LAB) | | | SERVICES, | | | | | | CORE | | + + + + + + | ALK PHOS | 42 (L) | 56 - 119 U/L | [facility] | | | | | | LABORATORY | | | | | | SERVICES, | | | | | | CORE | | + + + + + + | AST(SGOT) | 26 | <=41 U/L | [facility] | | | | | | LABORATORY | | | | | | SERVICES, | | | | | | CORE | | + + + + + + | ALT (SGPT) | 29 | <=60 U/L | [facility] | | | | | | LABORATORY | | | | | | SERVICES, | | | | | | CORE | | + + + + + + | ANION GAP | 4 | 4 - 11 mmol/L | [facility] | | | | | | LABORATORY | | | | | | SERVICES, | | | | | | CORE | | + + + + + + | ANION | 8 | 4 - 11 mmol/L | [facility] | | | GAP(ALB | | | LABORATORY | | | CORRECTED) | | | SERVICES, | | | | | | CORE | | + + + + + + | POTASSIUM | No Hemo | | [facility] | | | CMNT | | | LABORATORY | | | | | | SERVICES, | | | | | | CORE | | + + + + + + | BILI T CMNT | No Hemo | | [facility] | | | | | | LABORATORY | | | | | | SERVICES, | | | | | | CORE | | + + + + + + | AST CMNT | No Hemo | | [facility] | | | | | | LABORATORY | | | | | | SERVICES, | | | | | | CORE | | + + + + + + + + | Specimen | + + | Blood - Blood | | (substance) | + + + + + | Narrative | Performed At | + + + | GFR is estimated using the MDRD equation recommended by the | [facility] | | National Kidney Disease Education Program. Estimated GFR | LABORATORY | | Interpretive Information: <60 mL/min/1.73 sq m | SERVICES, CORE | | Chronic Kidney Disease <15 mL/min/1.73 sq m | | | Kidney Failure Estimated GFR greater that 60 mL/min/1.73 sq m is of | | | limited clinical value. The MDRD equation is not valid in the | | | following situations: - Patients under 18 years of age - Severe | | | malnutrition or obesity - Vegetarian diet - Rapidly changing kidney | | | function - Amputees, paraplegics, or other muscle-wasting diseses | | + + + + + + + + | Performing | Address | City/State/Zipcode | Phone Number | | Organization | | | | + + + + + | [facility] | [address] | [place] [address] | | | SERVICES, CORE | [address] | | | + + + + + CAPILLARY BLOOD GLUCOSE (NO CHG), POC (06/13/2018 9:36 PM PDT) + +---------+ + + + | Component | Value | Ref Range | Performed | Pathologist | | | | | At | Signature | + +---------+ + + + | BLOOD | 162 (H) | 70 - 99 mg/dL | [facility] - | | | GLUCOSE, | | | [facility] | | | POC | | | [facility] | | | | | | OF CARE | | | | | | TESTS | | + +---------+ + + + + + | Specimen | + + | | + + + + + + + | Performing | Address | City/State/Zipcode | Phone Number | | Organization | | | | + + + + + | [facility] | [address] | [place], [place] | | | [facility] | [facility] | [address] | | | TESTS | | | | + + + + + CAPILLARY BLOOD GLUCOSE (NO CHG), POC (06/13/2018 5:21 PM PDT) + +---------+ + + + | Component | Value | Ref Range | Performed | Pathologist | | | | | At | Signature | + +---------+ + + + | BLOOD | 139 (H) | 70 - 99 mg/dL | [facility] - | | | GLUCOSE, | | | [facility] | | | POC | | | [place] | | | | | | OF CARE | | | | | | TESTS | | + +---------+ + + + + + | Specimen | + + | | + + + + + + + | Performing | Address | City/State/Zipcode | Phone Number | | Organization | | | | + + + + + | [facility] | [address] | [place], [place] | | | [facility] | [facility] | [address] | | | TESTS | | | | + + + + + CAPILLARY BLOOD GLUCOSE (NO CHG), POC (06/13/2018 1:32 PM PDT) + +---------+ + + + | Component | Value | Ref Range | Performed | Pathologist | | | | | At | Signature | + +---------+ + + + | BLOOD | 130 (H) | 70 - 99 mg/dL | [facility] - | | | GLUCOSE, | | | [place] | | | POC | | | [facility] | | | | | | OF CARE | | | | | | TESTS | | + +---------+ + + + + + | Specimen | + + | | + + + + + + + | Performing | Address | City/State/Zipcode | Phone Number | | Organization | | | | + + + + + | [facility] | [address] | [place], [place] | | | [facility] CARE | [address] | [address] | | | TESTS | | | | + + + + + 12 LEAD ECG (06/13/2018 10:28 AM PDT) + + + + + + | Component | Value | Ref Range | Performed | Pathologist | | | | | At | Signature | + + + + + + | VENTRICULAR | 95 | bpm | [facility] | | | RATE | | | OF | | | | | | CARDIOLOGY | | + + + + + + | ATRIAL RATE | 96 | ms | [facility] | | | | | | OF | | | | | | CARDIOLOGY | | + + + + + + | P-R | 211 | ms | [facility] | | | INTERVAL | | | OF | | | | | | CARDIOLOGY | | + + + + + + | P AXIS | 58 | deg | [facility] | | | | | | OF | | | | | | CARDIOLOGY | | + + + + + + | QRS | 149 | ms | [facility] | | | DURATION | | | OF | | | | | | CARDIOLOGY | | + + + + + + | QT | 339 | ms | [facility] | | | | | | OF | | | | | | CARDIOLOGY | | + + + + + + | QTC-BAZETT | 428 | ms | [facility] | | | | | | OF | | | | | | CARDIOLOGY | | + + + + + + | R AXIS | 168 | deg | [facility] | | | | | | OF | | | | | | CARDIOLOGY | | + + + + + + | T AXIS | -70 | deg | [facility] | | | | | | OF | | | | | | CARDIOLOGY | | + + + + + + | ECG | Sinus rhythm | | [facility] | | | IMPRESSION | | | OF | | | | | | CARDIOLOGY | | + + + + + + | ECG | Ventricular premature | | [facility] | | | IMPRESSION | complex | | OF | | | | | | CARDIOLOGY | | + + + + + + | ECG | Borderline prolonged NH | | [facility] | | | IMPRESSION | interval | | OF | | | | | | CARDIOLOGY | | + + + + + + | ECG | Right bundle branch | | [facility] | | | IMPRESSION | block | | OF | | | | | | CARDIOLOGY | | + + + + + + | ECG | Inferior infarct, age | | [facility] | | | IMPRESSION | indeterminate- ABNORMAL | | OF | | | | ECG - | | CARDIOLOGY | | + + + + + + | ECG | Electronically signed | | [facility] | | | IMPRESSION | by: SHAI SILVA | | OF | | | | 06-13-2018 11:04:56 | | CARDIOLOGY | | + + + + + [...] + + + + + | [facility] | [address] | [place], [place] | | | CARDIOLOGY | [address] | [address] | | + + + + + CAPILLARY BLOOD GLUCOSE (NO CHG), POC (06/13/2018 8:17 AM PDT) + +-------+ + + + | Component | Value | Ref Range | Performed | Pathologist | | | | | At | Signature | + +-------+ + + + | BLOOD | 86 | 70 - 99 mg/dL | [facility] - | | | GLUCOSE, | | | [facility] | | | POC | | | [facility] | | | | | | OF CARE | | | | | | TESTS | | + +-------+ + + + + + | Specimen | + + | | + + + + + + + | Performing | Address | City/State/Zipcode | Phone Number | | Organization | | | | + + + + + | [facility] | [address] | [place], [place] | | | [facility] CARE | [address] | [address] | | | TESTS | | | | + + + + + CBC (HEMOGRAM) ONLY (06/13/2018 4:36 AM PDT) + + + + + + | Component | Value | Ref Range | Performed | Pathologist | | | | | At | Signature | + + + + + + | WHITE CELL | 11.11 (H) | 3.50 - 10.80 | [facility] | | | COUNT | | K/cu mm | LABORATORY | | | | | | SERVICES, | | | | | | CORE | | + + + + + + | RED CELL | 3.80 (L) | 4.50 - 6.00 | [facility] | | | COUNT | | M/cu mm | LABORATORY | | | | | | SERVICES, | | | | | | CORE | | + + + + + + | HEMOGLOBIN | 11.7 (L) | 13.5 - 17.5 | [facility] | | | | | g/dL | LABORATORY | | | | | | SERVICES, | | | | | | CORE | | + + + + + + | HEMATOCRIT | 35.2 (L) | 41.0 - 53.0 % | [facility] | | | | | | LABORATORY | | | | | | SERVICES, | | | | | | CORE | | + + + + + + | MCV | 92.6 | 80.0 - 100.0 fL | [facility] | | | | | | LABORATORY | | | | | | SERVICES, | | | | | | CORE | | + + + + + + | MCHC | 33.2 | 32.0 - 36.0 | [facility] | | | | | g/dL | LABORATORY | | | | | | SERVICES, | | | | | | CORE | | + + + + + + | RDW SD | 62.4 (H) | 35.1 - 46.3 fL | [facility] | | | | | | LABORATORY | | | | | | SERVICES, | | | | | | CORE | | + + + + + + | PLATELET | 136 (L) | 150 - 400 K/cu | [facility] | | | COUNT | | mm | LABORATORY | | | | | | SERVICES, | | | | | | CORE | | + + + + + + | MPV | 9.9 | 9.7 - 12.3 fL | [facility] | | | | | | LABORATORY | | | | | | SERVICES, | | | | | | CORE | | + + + + + + | NRBC% | 0.0 | 0.0 - 0.3 % | [facility] | | | | | | LABORATORY | | | | | | SERVICES, | | | | | | CORE | | + + + + + + | NRBC# | 0.00 | 0.00 - 0.02 | [facility] | | | | | K/cu mm | LABORATORY | | | | | | SERVICES, | | | | | | CORE | | + + + + + + + + | Specimen | + + | Blood - Blood | | (substance) | + + + + + | Narrative | Performed At | + + + | New reference ranges for MCV, MCHC, PLT, IG% and IG# effective | [facility] | | 03/05/2018 | LABORATORY | | | SERVICES, CORE | + + + + + + + + | Performing | Address | City/State/Zipcode | Phone Number | | Organization | | | | + + + + + | [facility] | [address] | [place] [address] | | | SERVICES, CORE | [address] | | | + + + + + COMPLETE METABOLIC SET (NA,K,CL,CO2,BUN,CREAT,GLUC,CA,AST,ALT,BILI TOTAL,ALK PHOS,ALB,PROT TOTAL) (06/13/2018 4:36 AM PDT) + + + + + + | Component | Value | Ref Range | Performed | Pathologist | | | | | At | Signature | + + + + + + | GLUCOSE, | 94 | 70 - 99 mg/dL | [facility] | | | PLASMA | | | LABORATORY | | | (LAB) | | | SERVICES, | | | | | | CORE | | + + + + + + | BUN, PLASMA | 27 (H) | 6 - 20 mg/dL | [facility] | | | (LAB) | | | LABORATORY | | | | | | SERVICES, | | | | | | CORE | | + + + + + + | CREATININE | 1.66 (H) | 0.70 - 1.30 | [facility] | | | PLASMA | | mg/dL | LABORATORY | | | (LAB) | | | SERVICES, | | | | | | CORE | | + + + + + + | EGFR | 48 (L) | >60 mL/min | [facility] | | | - | | | LABORATORY | | | [employer] [employer] | | | SERVICES, | | | | | | CORE | | + + + + + + | EGFR NON | 40 (L) | >60 mL/min | [facility] | | | -[facility] | | | LABORATORY | | | [place] | | | SERVICES, | | | | | | CORE | | + + + + + + | SODIUM, | 136 | 136 - 145 | [facility] | | | PLASMA | | mmol/L | LABORATORY | | | (LAB) | | | SERVICES, | | | | | | CORE | | + + + + + + | POTASSIUM, | 4.4 | 3.4 - 5.0 | [facility] | | | PLASMA | | mmol/L | LABORATORY | | | (LAB) | | | SERVICES, | | | | | | CORE | | + + + + + + | CHLORIDE, | 103 | 97 - 108 mmol/L | [facility] | | | PLASMA | | | LABORATORY | | | (LAB) | | | SERVICES, | | | | | | CORE | | + + + + + + | TOTAL CO2, | 25 | 21 - 32 mmol/L | [facility] | | | PLASMA | | | LABORATORY | | | (LAB) | | | SERVICES, | | | | | | CORE | | + + + + + + | CALCIUM, | 8.2 (L) | 8.6 - 10.2 | [facility] | | | PLASMA | | mg/dL | LABORATORY | | | (LAB) | | | SERVICES, | | | | | | CORE | | + + + + + + | CALCIUM(ALB | 9.6 | 8.6 - 10.2 | [facility] | | | CORRECTED) | | mg/dL | LABORATORY | | | | | | SERVICES, | | | | | | CORE | | + + + + + + | BILIRUBIN | 1.1 | 0.3 - 1.2 mg/dL | [facility] | | | TOTAL | | | LABORATORY | | | | | | SERVICES, | | | | | | CORE | | + + + + + + | TOTAL | 6.6 | 6.4 - 8.2 g/dL | [facility] | | | PROTEIN, | | | LABORATORY | | | PLASMA | | | SERVICES, | | | (LAB) | | | CORE | | + + + + + + | ALBUMIN, | 2.3 (L) | 3.5 - 4.7 g/dL | [facility] | | | PLASMA | | | LABORATORY | | | (LAB) | | | SERVICES, | | | | | | CORE | | + + + + + + | ALK PHOS | 44 (L) | 56 - 119 U/L | [facility] | | | | | | LABORATORY | | | | | | SERVICES, | | | | | | CORE | | + + + + + + | AST(SGOT) | 60 (H) | <=41 U/L | [facility] | | | | | | LABORATORY | | | | | | SERVICES, | | | | | | CORE | | + + + + + + | ALT (SGPT) | 48 | <=60 U/L | [facility] | | | | | | LABORATORY | | | | | | SERVICES, | | | | | | CORE | | + + + + + + | ANION GAP | 8 | 4 - 11 mmol/L | [facility] | | | | | | LABORATORY | | | | | | SERVICES, | | | | | | CORE | | + + + + + + | ANION | 12 (H) | 4 - 11 mmol/L | [facility] | | | GAP(ALB | | | LABORATORY | | | CORRECTED) | | | SERVICES, | | | | | | CORE | | + + + + + + | POTASSIUM | Sl Hemo | | [facility] | | | CMNT | | | LABORATORY | | | | | | SERVICES, | | | | | | CORE | | + + + + + + | AST CMNT | Sl Hemo | | [facility] | | | | | | LABORATORY | | | | | | SERVICES, | | | | | | CORE | | + + + + + + + + | Specimen | + + | Blood - Blood | | (substance) | + + + + + | Narrative | Performed At | + + + | Sample hemolyzed. Results for K, Total Bili, Direct Bili, AST, | [facility] | | LDH, or HDL may be inaccurate. Refer to comment under test result. | LABORATORY | | GFR is estimated using the MDRD equation recommended by the National | SERVICES, CORE | | Kidney Disease Education Program. Estimated GFR Interpretive | | | Information: <60 mL/min/1.73 sq m Chronic Kidney | | | Disease <15 mL/min/1.73 sq m Kidney Failure | | | Estimated GFR greater that 60 mL/min/1.73 sq m is of limited clinical | | | value. The MDRD equation is not valid in the following situations: | | | - Patients under 18 years of age - Severe malnutrition or obesity | | | - Vegetarian diet - Rapidly changing kidney function - Amputees, | | | paraplegics, or other muscle-wasting diseses | | + + + + + + + + | Performing | Address | City/State/Zipcode | Phone Number | | Organization | | | | + + + + + | [facility] | [address] | [place] [address] | | | SERVICES, CORE | [address] | | | + + + + + MAGNESIUM, PLASMA (06/12/2018 10:24 PM PDT) + +-------+ + + + | Component | Value | Ref Range | Performed | Pathologist | | | | | At | Signature | + +-------+ + + + | MAGNESIUM,P | 1.8 | 1.6 - 2.6 mg/dL | [facility] | | | LASMA | | | LABORATORY | | | | | | STEF, | | | | | | CORE | | + +-------+ + + + + + | Specimen | + + | Blood - Blood | | (substance) | + + + + + | Narrative | Performed At | + + + | Reference range change effective 06/10/17. | [facility] | | | LABORATORY | | | KAREEM FINCH | + + + + + + + + | Performing | Address | City/State/Zipcode | Phone Number | | Organization | | | | + + + + + | [facility] | [address] | [place] [address] | | | SERVICES, KAREEM | [address] | | | + + + + + COMPLETE METABOLIC SET (NA,K,CL,CO2,BUN,CREAT,GLUC,CA,AST,ALT,BILI TOTAL,ALK PHOS,ALB,PROT TOTAL) (06/12/2018 10:24 PM PDT) + + + + + + | Component | Value | Ref Range | Performed | Pathologist | | | | | At | Signature | + + + + + + | GLUCOSE, | 136 (H) | 70 - 99 mg/dL | [facility] | | | PLASMA | | | LABORATORY | | | (LAB) | | | SERVICES, | | | | | | CORE | | + + + + + + | BUN, PLASMA | 28 (H) | 6 - 20 mg/dL | [facility] | | | (LAB) | | | LABORATORY | | | | | | SERVICES, | | | | | | CORE | | + + + + + + | CREATININE | 1.55 (H) | 0.70 - 1.30 | [facility] | | | PLASMA | | mg/dL | LABORATORY | | | (LAB) | | | SERVICES, | | | | | | CORE | | + + + + + + | EGFR | 52 (L) | >60 mL/min | [facility] | | | - | | | LABORATORY | | | [employer] [employer] | | | SERVICES, | | | | | | CORE | | + + + + + + | EGFR NON | 43 (L) | >60 mL/min | [facility] | | | -[facility] | | | LABORATORY | | | RICAN | | | SERVICES, | | | | | | CORE | | + + + + + + | SODIUM, | 139 | 136 - 145 | [facility] | | | PLASMA | | mmol/L | LABORATORY | | | (LAB) | | | SERVICES, | | | | | | CORE | | + + + + + + | POTASSIUM, | 3.7 | 3.4 - 5.0 | [facility] | | | PLASMA | | mmol/L | LABORATORY | | | (LAB) | | | SERVICES, | | | | | | CORE | | + + + + + + | CHLORIDE, | 100 | 97 - 108 mmol/L | [facility] | | | PLASMA | | | LABORATORY | | | (LAB) | | | SERVICES, | | | | | | CORE | | + + + + + + | TOTAL CO2, | 33 (H) | 21 - 32 mmol/L | [facility] | | | PLASMA | | | LABORATORY | | | (LAB) | | | SERVICES, | | | | | | CORE | | + + + + + + | CALCIUM, | 8.6 | 8.6 - 10.2 | [facility] | | | PLASMA | | mg/dL | LABORATORY | | | (LAB) | | | SERVICES, | | | | | | CORE | | + + + + + + | CALCIUM(ALB | 9.7 | 8.6 - 10.2 | [facility] | | | CORRECTED) | | mg/dL | LABORATORY | | | | | | SERVICES, | | | | | | CORE | | + + + + + + | BILIRUBIN | 1.0 | 0.3 - 1.2 mg/dL | [facility] | | | TOTAL | | | LABORATORY | | | | | | SERVICES, | | | | | | CORE | | + + + + + + | TOTAL | 6.9 | 6.4 - 8.2 g/dL | [facility] | | | PROTEIN, | | | LABORATORY | | | PLASMA | | | SERVICES, | | | (LAB) | | | CORE | | + + + + + + | ALBUMIN, | 2.6 (L) | 3.5 - 4.7 g/dL | [facility] | | | PLASMA | | | LABORATORY | | | (LAB) | | | SERVICES, | | | | | | CORE | | + + + + + + | ALK PHOS | 48 (L) | 56 - 119 U/L | [facility] | | | | | | LABORATORY | | | | | | SERVICES, | | | | | | CORE | | + + + + + + | AST(SGOT) | 40 | <=41 U/L | [facility] | | | | | | LABORATORY | | | | | | SERVICES, | | | | | | CORE | | + + + + + + | ALT (SGPT) | 52 | <=60 U/L | [facility] | | | | | | LABORATORY | | | | | | SERVICES, | | | | | | CORE | | + + + + + + | ANION GAP | 6 | 4 - 11 mmol/L | [facility] | | | | | | LABORATORY | | | | | | SERVICES, | | | | | | CORE | | + + + + + + | ANION | 9 | 4 - 11 mmol/L | [facility] | | | GAP(ALB | | | LABORATORY | | | CORRECTED) | | | SERVICES, | | | | | | CORE | | + + + + + + | POTASSIUM | No Hemo | | [facility] | | | CMNT | | | LABORATORY | | | | | | SERVICES, | | | | | | CORE | | + + + + + + | BILI T CMNT | No Hemo | | [facility] | | | | | | LABORATORY | | | | | | SERVICES, | | | | | | CORE | | + + + + + + | AST CMNT | No Hemo | | [facility] | | | | | | LABORATORY | | | | | | SERVICES, | | | | | | CORE | | + + + + + + + + | Specimen | + + | Blood - Blood | | (substance) | + + + + + | Narrative | Performed At | + + + | GFR is estimated using the MDRD equation recommended by the | [facility] | | National Kidney Disease Education Program. Estimated GFR | LABORATORY | | Interpretive Information: <60 mL/min/1.73 sq m | SERVICES, CORE | | Chronic Kidney Disease <15 mL/min/1.73 sq m | | | Kidney Failure Estimated GFR greater that 60 mL/min/1.73 sq m is of | | | limited clinical value. The MDRD equation is not valid in the | | | following situations: - Patients under 18 years of age - Severe | | | malnutrition or obesity - Vegetarian diet - Rapidly changing kidney | | | function - Amputees, paraplegics, or other muscle-wasting diseses | | + + + + + + + + | Performing | Address | City/State/Zipcode | Phone Number | | Organization | | | | + + + + + | [facility] | [address] | [place] [address] | | | SERVICES, CORE | [address] | | | + + + + + CONFIRMATORY ABO/RH (06/12/2018 10:23 PM PDT) + + + + + + | Component | Value | Ref Range | Performed | Pathologist | | | | | At | Signature | + + + + + + | ABO Group | A | | [facility] | | | | | | LABORATORY | | | | | | SERVICES, | | | | | | TRANSFUSION | | | | | | MEDICINE | | + + + + + + | Rh Type | Positive | | [facility] | | | | | | LABORATORY | | | | | | SERVICES, | | | | | | TRANSFUSION | | | | | | MEDICINE | | + + + + + + + + | Specimen | + + | Blood - Blood | | (substance) | + + + + + + + | Performing | Address | City/State/Zipcode | Phone Number | | Organization | | | | + + + + + | [facility] | [address] | [place] [address] | | | SERVICES, | [address] | | | | TRANSFUSION MEDICINE | | | | + + + + + ANTIBODY SCREEN (06/12/2018 10:23 PM PDT) + + + + + + | Component | Value | Ref Range | Performed | Pathologist | | | | | At | Signature | + + + + + + | Antibody | Negative | | [facility] | | | Screen | | | LABORATORY | | | | | | SERVICES, | | | | | | TRANSFUSION | | | | | | MEDICINE | | + + + + + + + + | Specimen | + + | Blood - Blood | | (substance) | + + + + + + + | Performing | Address | City/State/Zipcode | Phone Number | | Organization | | | | + + + + + | [facility] | [address] | [place] [address] | | | SERVICES, | [address] | | | | TRANSFUSION MEDICINE | | | | + + + + + CBC (HEMOGRAM) ONLY (06/12/2018 10:23 PM PDT) + + + + + + | Component | Value | Ref Range | Performed | Pathologist | | | | | At | Signature | + + + + + + | WHITE CELL | 11.67 (H) | 3.50 - 10.80 | [facility] | | | COUNT | | K/cu mm | LABORATORY | | | | | | SERVICES, | | | | | | CORE | | + + + + + + | RED CELL | 3.64 (L) | 4.50 - 6.00 | [facility] | | | COUNT | | M/cu mm | LABORATORY | | | | | | SERVICES, | | | | | | CORE | | + + + + + + | HEMOGLOBIN | 11.4 (L) | 13.5 - 17.5 | [facility] | | | | | g/dL | LABORATORY | | | | | | SERVICES, | | | | | | CORE | | + + + + + + | HEMATOCRIT | 34.2 (L) | 41.0 - 53.0 % | [facility] | | | | | | LABORATORY | | | | | | SERVICES, | | | | | | CORE | | + + + + + + | MCV | 94.0 | 80.0 - 100.0 fL | [facility] | | | | | | LABORATORY | | | | | | SERVICES, | | | | | | CORE | | + + + + + + | MCHC | 33.3 | 32.0 - 36.0 | [facility] | | | | | g/dL | LABORATORY | | | | | | SERVICES, | | | | | | CORE | | + + + + + + | RDW SD | 63.3 (H) | 35.1 - 46.3 fL | [facility] | | | | | | LABORATORY | | | | | | SERVICES, | | | | | | CORE | | + + + + + + | PLATELET | 216 | 150 - 400 K/cu | [facility] | | | COUNT | | mm | LABORATORY | | | | | | SERVICES, | | | | | | CORE | | + + + + + + | MPV | 9.3 (L) | 9.7 - 12.3 fL | [facility] | | | | | | LABORATORY | | | | | | SERVICES, | | | | | | CORE | | + + + + + + | NRBC% | 0.0 | 0.0 - 0.3 % | [facility] | | | | | | LABORATORY | | | | | | SERVICES, | | | | | | CORE | | + + + + + + | NRBC# | 0.00 | 0.00 - 0.02 | [facility] | | | | | K/cu mm | LABORATORY | | | | | | SERVICES, | | | | | | CORE | | + + + + + + + + | Specimen | + + | Blood - Blood | | (substance) | + + + + + | Narrative | Performed At | + + + | New reference ranges for MCV, MCHC, PLT, IG% and IG# effective | [facility] | | 03/05/2018 | LABORATORY | | | SERVICES, CORE | + + + + + + + + | Performing | Address | City/State/Zipcode | Phone Number | | Organization | | | | + + + + + | [facility] | [address] | [place] [address] | | | SERVICES, CORE | [address] | | | + + + + + ABO & RH TYPE (06/12/2018 10:23 PM PDT) + + + + + + | Component | Value | Ref Range | Performed | Pathologist | | | | | At | Signature | + + + + + + | ABO Group | A | | [facility] | | | | | | LABORATORY | | | | | | SERVICES, | | | | | | TRANSFUSION | | | | | | MEDICINE | | + + + + + + | Rh Type | Positive | | [facility] | | | | | | LABORATORY | | | | | | SERVICES, | | | | | | TRANSFUSION | | | | | | MEDICINE | | + + + + + + + + | Specimen | + + | Blood - Blood | | (substance) | + + + + + + + | Performing | Address | City/State/Zipcode | Phone Number | | Organization | | | | + + + + + | [facility] | [address] | [place] [address] | | | SERVICES, | [address] | | | | TRANSFUSION MEDICINE | | | | + + + + + INR (06/12/2018 10:23 PM PDT) + + + + + + | Component | Value | Ref Range | Performed | Pathologist | | | | | At | Signature | + + + + + + | INR | 1.42 (H) | 0.90 - 1.20 INR | [facility] | | | | | | LABORATORY | | | | | | SERVICES, | | | | | | CORE | | + + + + + + + + | Specimen | + + | Blood - Blood | | (substance) | + + + + + | Narrative | Performed At | + + + | INR Therapeutic ranges for full anticoagulation: INR for | [facility] | | Venous Thromboembolism (2.0 - 3.0) INR INR for | LABORATORY | | most patients with mech. valves (2.5 - 3.5) INR | [facility] | + + + + + + + + | Performing | Address | City/State/Zipcode | Phone Number | | Organization | | | | + + + + + | [facility] | [address] | [place] [address] | | | [facility] FIN[facility] | [address] | | | + + + + + PROCEDURE NOTE (06/12/2018 10:09 PM PDT)CAPILLARY BLOOD GLUCOSE (NO CHG), POC (06/12/2018 9:41 PM PDT) + +---------+ + + + | Component | Value | Ref Range | Performed | Pathologist | | | | | At | Signature | + +---------+ + + + | BLOOD | 120 (H) | 70 - 99 mg/dL | [facility] - | | | GLUCOSE, | | | [facility] | | | POC | | | [facility] | | | | | | OF CARE | | | | | | TESTS | | + +---------+ + + + + + | Specimen | + + | | + + + + + + + | Performing | Address | City/State/Zipcode | Phone Number | | Organization | | | | + + + + + | [facility] | [address] | [place], [place] | | | [facility] | [address] | [phone] | | | TESTS | | | | + + + + + COMPLETE METABOLIC SET (NA,K,CL,CO2,BUN,CREAT,GLUC,CA,AST,ALT,BILI TOTAL,ALK PHOS,ALB,PROT TOTAL) (06/12/2018 4:27 PM PDT) + + + + + + | Component | Value | Ref Range | Performed | Pathologist | | | | | At | Signature | + + + + + + | GLUCOSE, | 127 (H) | 70 - 99 mg/dL | [facility] | | | PLASMA | | | LABORATORY | | | (LAB) | | | SERVICES, | | | | | | CORE | | + + + + + + | BUN, PLASMA | 30 (H) | 6 - 20 mg/dL | [facility] | | | (LAB) | | | LABORATORY | | | | | | SERVICES, | | | | | | CORE | | + + + + + + | CREATININE | 1.63 (H) | 0.70 - 1.30 | [facility] | | | PLASMA | | mg/dL | LABORATORY | | | (LAB) | | | SERVICES, | | | | | | CORE | | + + + + + + | EGFR | 50 (L) | >60 mL/min | [facility] | | | - | | | LABORATORY | | | [place] | | | SERVICES, | | | | | | CORE | | + + + + + + | EGFR NON | 41 (L) | >60 mL/min | [facility] | | | -[facility] | | | LABORATORY | | | [place] | | | SERVICES, | | | | | | CORE | | + + + + + + | SODIUM, | 138 | 136 - 145 | [facility] | | | PLASMA | | mmol/L | LABORATORY | | | (LAB) | | | SERVICES, | | | | | | CORE | | + + + + + + | POTASSIUM, | 3.6 | 3.4 - 5.0 | [facility] | | | PLASMA | | mmol/L | LABORATORY | | | (LAB) | | | SERVICES, | | | | | | CORE | | + + + + + + | CHLORIDE, | 100 | 97 - 108 mmol/L | [facility] | | | PLASMA | | | LABORATORY | | | (LAB) | | | SERVICES, | | | | | | CORE | | + + + + + + | TOTAL CO2, | 34 (H) | 21 - 32 mmol/L | [facility] | | | PLASMA | | | LABORATORY | | | (LAB) | | | SERVICES, | | | | | | CORE | | + + + + + + | CALCIUM, | 8.6 | 8.6 - 10.2 | [facility] | | | PLASMA | | mg/dL | LABORATORY | | | (LAB) | | | SERVICES, | | | | | | CORE | | + + + + + + | CALCIUM(ALB | 9.8 | 8.6 - 10.2 | [facility] | | | CORRECTED) | | mg/dL | LABORATORY | | | | | | SERVICES, | | | | | | CORE | | + + + + + + | BILIRUBIN | 1.0 | 0.3 - 1.2 mg/dL | [facility] | | | TOTAL | | | LABORATORY | | | | | | SERVICES, | | | | | | CORE | | + + + + + + | TOTAL | 7.0 | 6.4 - 8.2 g/dL | [facility] | | | PROTEIN, | | | LABORATORY | | | PLASMA | | | SERVICES, | | | (LAB) | | | CORE | | + + + + + + | ALBUMIN, | 2.5 (L) | 3.5 - 4.7 g/dL | [facility] | | | PLASMA | | | LABORATORY | | | (LAB) | | | SERVICES, | | | | | | CORE | | + + + + + + | ALK PHOS | 46 (L) | 56 - 119 U/L | [facility] | | | | | | LABORATORY | | | | | | SERVICES, | | | | | | CORE | | + + + + + + | AST(SGOT) | 46 (H) | <=41 U/L | [facility] | | | | | | LABORATORY | | | | | | SERVICES, | | | | | | CORE | | + + + + + + | ALT (SGPT) | 57 | <=60 U/L | [facility] | | | | | | LABORATORY | | | | | | SERVICES, | | | | | | CORE | | + + + + + + | ANION GAP | 4 | 4 - 11 mmol/L | [facility] | | | | | | LABORATORY | | | | | | SERVICES, | | | | | | CORE | | + + + + + + | ANION | 7 | 4 - 11 mmol/L | [facility] | | | GAP(ALB | | | LABORATORY | | | CORRECTED) | | | SERVICES, | | | | | | CORE | | + + + + + + | POTASSIUM | No Hemo | | [facility] | | | CMNT | | | LABORATORY | | | | | | SERVICES, | | | | | | CORE | | + + + + + + | BILI T CMNT | No Hemo | | [facility] | | | | | | LABORATORY | | | | | | SERVICES, | | | | | | CORE | | + + + + + + | AST CMNT | No Hemo | | [facility] | | | | | | LABORATORY | | | | | | SERVICES, | | | | | | CORE | | + + + + + + + + | Specimen | + + | Blood - Blood | | (substance) | + + + + + | Narrative | Performed At | + + + | GFR is estimated using the MDRD equation recommended by the | [facility] | | National Kidney Disease Education Program. Estimated GFR | LABORATORY | | Interpretive Information: <60 mL/min/1.73 sq m | SERVICES, CORE | | Chronic Kidney Disease <15 mL/min/1.73 sq m | | | Kidney Failure Estimated GFR greater that 60 mL/min/1.73 sq m is of | | | limited clinical value. The MDRD equation is not valid in the | | | following situations: - Patients under 18 years of age - Severe | | | malnutrition or obesity - Vegetarian diet - Rapidly changing kidney | | | function - Amputees, paraplegics, or other muscle-wasting diseses | | + + + + + + + + | Performing | Address | City/State/Zipcode | Phone Number | | Organization | | | | + + + + + | [facility] | [address] | [place] [address] | | | SERVICES, CORE | [address] | | | + + + + + PHOSPHORUS, PLASMA (06/12/2018 4:27 PM PDT) + +-------+ + + + | Component | Value | Ref Range | Performed | Pathologist | | | | | At | Signature | + +-------+ + + + | PHOSPHORUS, | 3.7 | 2.4 - 4.7 mg/dL | [facility] | | | PLASMA | | | LABORATORY | | | (LAB) | | | SERVICES, | | | | | | CORE | | + +-------+ + + + + + | Specimen | + + | Blood - Blood | | (substance) | + + + + + + + | Performing | Address | City/State/Zipcode | Phone Number | | Organization | | | | + + + + + | [facility] | [phone] | [place] [address] | | | SERVICES, [place] | [address] | | | + + + + + CAPILLARY BLOOD GLUCOSE (NO CHG), POC (06/12/2018 3:40 PM PDT) + +---------+ + + + | Component | Value | Ref Range | Performed | Pathologist | | | | | At | Signature | + +---------+ + + + | BLOOD | 130 (H) | 70 - 99 mg/dL | [facility] - | | | GLUCOSE, | | | [place] | | | POC | | | [place] | | | | | | OF CARE | | | | | | TESTS | | + +---------+ + + + + + | Specimen | + + | | + + + + + + + | Performing | Address | City/State/Zipcode | Phone Number | | Organization | | | | + + + + + | [facility] | [address] | [place], [place] | | | [facility] | [address] | [address] | | | TESTS | | | | + + + + + PROCEDURE NOTE (06/12/2018 2:57 PM PDT) + + + | Narrative | Performed At | + + + | Ghassan Sherman MD 06/17/2018 2:15 PM Date of Service: | | | 08/01/2015 Attending Surgeon: Ghassan Sherman MD | | | Hand Sewer(s): mesfin thompson MD Preoperative Diagnosis: 1. 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 Postoperative Diagnosis: | | | same Procedures Performed: 1. Right knee arthrotomy with | | | drainage for infection and polyethylene exchange 2. Application | | | TINO disposible negative pressure wound therapy dressing right knee | | | [id number] Anesthesia: General endotracheal anesthesia. | | | Implants: excahgned alisha triathalon poly size 15, 13mm EBL: 50 | | | Complications: None Specimens: 6 cultures, 1 path Indication | | | For Procedure: Solo Alves was transferred to [facility] for sepsis | | | after previosuly having been treated with a right total knee. He | | | ws medically unstable and transferred to the medical service. An | | | apsirate was positive. I would recommend returning to the | | | operating room for poly exchange and debridement. We discussed the | | | procedure, alternatives, risks at length with the patient and | | | family and answered all their questions to their satisfaction. A | | | consent form was signed and leg marked. Procedure In Detail: | | | The patient was identified in the preoperative holding area by name, | | | date, medical record number, and was transported to the | | | operating room and transferred to the operating table where general | | | endotracheal anesthesia was induced without difficulty. We then | | | prepped and draped his right lower extremity in the usual sterile | | | fashion. At this time, a time-out procedure was undertaken during | | | which he was identified and the consent form was reviewed as well as | | | the site marking. It was verified that he had received his | | | preoperative antibiotics as well as the placement of a pneumatic | | | compression device in his right lower extremity, which was on and | | | working. Everyone in the room was in agreement that the correct | | | side, site, and procedure were to take place and the procedure | | | began. After the placement of the tourniquet, his incisions were | | | then marked out and we began with the typical medial parapatellar | | | arthrotomy incision. We followed along the medial cortex of the | | | patella. A skin incision was made with a 15 blade scalpel and | | | dissection was carried down to the level of the knee capsule with | | | electrocautery. An arthrotomy was made in the medial parapatellar | | | knee. Grossly purlent tissue was encounteered. A standrad set of | | | ortho biopsies were obtained. The arhtrotomy was extended such | | | that a finger could be place about the knee to break up loculations | | | in the suprapatellar pouch, medial and lateral gutters and notch of | | | the knee. The femoral and tibial componenets of the toal kne were | | | stable. synoviuim was excised as completely as possible. AN | | | osteotome was used to remove the poly liner. The back of the knee | | | was then debrided. The knee was lavaged with 6 liters of sterile | | | saline. A betadine wash was performed. The knee was then flexed | | | and a new alisha triathalon CR poly, size 5 with 13mm height was | | | implnated into the tibial baseplate. IT was stable. The knee was | | | much cleanere appearing at this point. The knee was lavaged with | | | 10 l of sterile saline under gravity drainage. A drain was placed | | | in the knee. The knee casule was closed with 0 vicryl suture, and | | | skin closed with 2-0 Biosyn and 3-0 nylon. Due to the risk | | | of postop hematoma and drainage a TINO disopsible negative pressure | | | dressing was applied over the incision. This measured 10x30 cm. | | | Sticky drapes were placed around the incision to protect the skin. | | | Sticky drapes were applied over this. Suction was applied and | | | held appropriately. Suction will be set postoperatively to 100 mm | | | Hg. The vac should be removed in approximately 7 days. | | | Sterile Webril was then wrapped, as well as a large Patricia wrap. He | | | was then awoken from anesthesia and transported back to the | | | postanesthesia care unit. Postoperative Plan: The patient be full | | | weightbearing on his right lower extremity He will follow up in | | | approximately 2-3 weeks with Licha Luna for wound inspection in | | | clinic. At that visit he should have xrays ap/lateral of the right | | | knee. He can have his sutures removed. He will be on likely PICC | | | line IV antibiotics. He can start physical therapy for knee | | | motion at the two week postop visit. In accordance with | | | medicare guidelines I was present for the critical portion of the | | | procedure. Ghassan Shreman MD ADDENDUM: (06/17/2018): The | | | date listed above is incorrect. The correct date of surgery was | | | 06/12/2018. The remainder of the operative note is correct as it | | | stands. Ghassan Sherman MD, MPH Repair Specialist, Dept. of | | | Orthopaedics [facility] [address] | | | [address]icel [address]. [address] [place] [id number] | | | [email or web address] | | + + + CAPILLARY BLOOD GLUCOSE (NO CHG), POC (06/12/2018 2:42 PM PDT) + +---------+ + + + | Component | Value | Ref Range | Performed | Pathologist | | | | | At | Signature | + +---------+ + + + | BLOOD | 134 (H) | 70 - 99 mg/dL | [facility] - | | | GLUCOSE, | | | [place] | | | POC | | | [facility] | | | | | | OF CARE | | | | | | TESTS | | + +---------+ + + + + + | Specimen | + + | | + + + + + + + | Performing | Address | City/State/Zipcode | Phone Number | | Organization | | | | + + + + + | [facility] | [address] | [place], [place] | | | [facility] [facility] CARE | [address] | [address] | | | TESTS | | | | + + + + + CAPILLARY BLOOD GLUCOSE (NO CHG), POC (06/12/2018 2:08 PM PDT) + +--------+ + + + | Component | Value | Ref Range | Performed | Pathologist | | | | | At | Signature | + +--------+ + + + | BLOOD | 68 (L) | 70 - 99 mg/dL | [facility] - | | | GLUCOSE, | | | [place] | | | POC | | | [facility] | | | | | | OF CARE | | | | | | TESTS | | + +--------+ + + + + + | Specimen | + + | | + + + + + + + | Performing | Address | City/State/Zipcode | Phone Number | | Organization | | | | + + + + + | [facility] | [address] | [place], [place] | | | [facility] [place] OF [facility] | [address] | [address] | | | TESTS | | | | + + + + + CULTURE, TISSUE-PROSTHETIC JOINT INFECTION [facility] (06/12/2018 1:54 PM PDT) + + + + + + | Component | Value | Ref Range | Performed | Pathologist | | | | | At | Signature | + + + + + + | CULTURE | Staphylococcus | | [facility] - | | | RESULT | epidermidis (A) | | [facility] - | | | | | | [place] | | + + + + + + + + | Specimen | + + | Tissue - Structure | | of right knee region | | (body structure) | + + + + + | Narrative | Performed At | + + + | Culture Report: Staphylococcus epidermidis Refer to culture | [facility] - | | collected on 06/12/18 at 1:54 PM for susceptibilities Unable to | [facility] - | | continue culture for Propionibacterium due to growth of other | [facility] | | organsims. Gram Stain: No squamous epithelial cells Moderate | | | polymorphonuclear cells No organisms seen | | + + + + + + + + | Performing | Address | City/State/Zipcode | Phone Number | | Organization | | | | + + + + + | [facility] | [address] | [place] [address] | | | [place] | | | | + + + + + CULTURE, TISSUE-PROSTHETIC JOINT INFECTION [facility] (06/12/2018 1:54 PM PDT) + + + + + + | Component | Value | Ref Range | Performed | Pathologist | | | | | At | Signature | + + + + + + | CULTURE | Staphylococcus | | [facility] - | | | RESULT | epidermidis (A) | | [facility] - | | | | | | [facility] | | + + + + + + + + | Specimen | + + | Tissue - Structure | | of right knee region | | (body structure) | + + + + + | Narrative | Performed At | + + + | Culture Report: Staphylococcus epidermidis Refer to culture | [facility] - | | collected on 06/12/18 at 1:54 PM for susceptibilities Unable to | [facility] - | | continue culture for Propionibacterium due to growth of other | [place] | | organsims. Gram Stain: No squamous epithelial cells No | | | polymorphonuclear cells No organisms seen | | + + + + + + + + | Performing | Address | City/State/Zipcode | Phone Number | | Organization | | | | + + + + + | [facility] | [address] | [place] [address] | | | [place] | | | | + + + + + CULTURE, TISSUE-PROSTHETIC JOINT INFECTION [facility] (06/12/2018 1:54 PM PDT) + + + + + + | Component | Value | Ref Range | Performed | Pathologist | | | | | At | Signature | + + + + + + | CULTURE | Staphylococcus | | [facility] - | | | RESULT | epidermidis (A) | | [facility] - | | | | | | [place] | | + + + + + + + + | Specimen | + + | Tissue - Structure | | of right knee region | | (body structure) | + + + + + | Narrative | Performed At | + + + | Culture Report: Staphylococcus epidermidis Unable to continue | [facility] - | | culture for Propionibacterium due to growth of other organsims. | [facility] - | | Gram Stain: No squamous epithelial cells Few polymorphonuclear | [place] | | cells No organisms seen | | + + + + + + + + | Organism | Antibiotic | Method | Susceptibility | + + + + + | Staphylococcus | Cefazolin | [place] | Sensitive | | epidermidis | | | | + + + + + | Staphylococcus | Clindamycin | [place] | Sensitive | | epidermidis | | | | + + + + + | Staphylococcus | Erythromycin | [place] | Sensitive | | epidermidis | | | | + + + + + | Staphylococcus | Oxacillin | [place] | Sensitive | | epidermidis | | | | + + + + + | Staphylococcus | Trimethoprim/Sulfa | [place] | Sensitive | | epidermidis | | | | + + + + + | Staphylococcus | Tetracycline | [place] | Resistant | | epidermidis | | | | + + + + + | Staphylococcus | Vancomycin | [place] | Sensitive | | epidermidis | | | | + + + + + + + + + + | Performing | Address | City/State/Zipcode | Phone Number | | Organization | | | | + + + + + | [facility] | [address] | [place] [address] | | | [place]PUBL[place] | | | | + + + + + CULTURE, TISSUE-PROSTHETIC JOINT INFECTION [facility] (06/12/2018 1:54 PM PDT) + + + + + + | Component | Value | Ref Range | Performed | Pathologist | | | | | At | Signature | + + + + + + | CULTURE | Staphylococcus | | [facility] - | | | RESULT | epidermidis (A) | | [facility] - | | | | | | [facility] | | + + + + + + + + | Specimen | + + | Tissue - Structure | | of right knee region | | (body structure) | + + + + + | Narrative | Performed At | + + + | Culture Report: Staphylococcus epidermidis Refer to culture | [facility] - | | collected on 06/12/18 at 1:54 PM for susceptibilities Unable to | [facility] - | | continue culture for Propionibacterium due to growth of other | [place] | | organsims. Gram Stain: No squamous epithelial cells Many | | | polymorphonuclear cells No organisms seen | | + + + + + + + + | Performing | Address | City/State/Zipcode | Phone Number | | Organization | | | | + + + + + | [facility] - | [address] | [place] [address] | | | [place]PUBLIC | | | | + + + + + CULTURE, TISSUE-PROSTHETIC JOINT INFECTION [facility]EL[facility] (06/12/2018 1:54 PM PDT) + + + + + + | Component | Value | Ref Range | Performed | Pathologist | | | | | At | Signature | + + + + + + | CULTURE | Staphylococcus | | [facility] - | | | RESULT | epidermidis (A) | | [facility] - | | | | | | [place] | | + + + + + + + + | Specimen | + + | Tissue - Structure | | of right knee region | | (body structure) | + + + + + | Narrative | Performed At | + + + | Culture Report: Staphylococcus epidermidis Refer to culture | [facility] - | | collected on 06/12/18 at 1:54 PM for susceptibilities Unable to | [facility] - | | continue culture for Propionibacterium due to growth of other | [place] | | organsims. Gram Stain: No squamous epithelial cells Rare | | | polymorphonuclear cells No organisms seen | | + + + + + + + + | Performing | Address | City/State/Zipcode | Phone Number | | Organization | | | | + + + + + | [facility] - | [address] | [place] [address] | | | REPUBLIC | | | | + + + + + SURGICAL PATHOLOGY (06/12/2018 1:53 PM PDT) + + + + + + | Component | Value | Ref Range | Performed | Pathologist | | | | | At | Signature | + + + + + + | Clinical | RIGHT KNEE PROSTHETIC | | [facility] | | | History | JOINT INFECTION | | DEPARTMENT | | | | | | OF | | | | | | PATHOLOGY | | + + + + + + | Final | A. Soft tissue, right | | [facility] | Electronically | | Pathologic | knee, biopsy: Fibrous | | DEPARTMENT | signed by Isaac | | Diagnosis | soft tissue and skeletal | | OF | Alexsander Witt MD | | | muscle, negative for | | PATHOLOGY | on 06/16/2018 at | | | significant acute | | | 4:19 PM | | | inflammationB. Knee, | | | | | | infected right total | | | | | | knee polyethylene: | | | | | | Medical hardware (gross | | | | | | only)Case seen by:Christina | | | | | | MD [facility] | | | | | | | | | | | | Surgical Pathology | | | | | | Scooter Witt MD, | | | | | | PhD | | | | | | | | | | | | PathologistMy | | | | | | electronic signature | | | | | | indicates that I have | | | | | | personally reviewed all | | | | | | diagnostic slides, the | | | | | | gross and/or microscopic | | | | | | portion of this report | | | | | | and formulated the final | | | | | | diagnosis. | | | | + + + + + + | Gross | Received are 2 specimens | | [facility] | | | Description | fresh in containers | | DEPARTMENT | | | | labeled with the | | OF | | | | patient's name (initials | | PATHOLOGY | | | | GR) and medical record | | | | | | number [id number]. Knee, | | | | | | right knee r/o | | | | | | infection: Received | | | | | | labeled "right knee rule | | | | | | out infection | | | | | | | | | | | | 1" is a 2.1 x 0.9 x 0.5 | | | | | | cm oh | | | | | | | | | | | | white soft tissue | | | | | | fragment. Specimen is | | | | | | submitted entirely in | | | | | | A1.B. Knee, infected | | | | | | right total knee | | | | | | polyethylene: Received | | | | | | labeled "infected right | | | | | | total knee | | | | | | polyethylene | | | | | | | | | | | | 2 is a plastic white | | | | | | orthopedic medical | | | | | | device (7.5 x 5.0 x 1.9 | | | | | | cm) serial #[id number] | | | | | | | | | | | | G | | | | | | | | | | | | 513. There is an | | | | | | associated 5.5 cm bent | | | | | | metal pin. Submitted for | | | | | | gross diagnosis | | | | | | only.(EH) | | | | + + + + + + | Ancillary | Analyte specific | | [facility] | | | Information | reagents are used in | | DEPARTMENT | | | | many laboratory tests | | OF | | | | necessary for standard | | PATHOLOGY | | | | medical care. This test | | | | | | was developed and its | | | | | | performance | | | | | | characteristics | | | | | | determined by [facility] | | | | | | laboratories. It has | | | | | | not been cleared or | | | | | | approved by the [place] Food | | | | | | and Drug Administration | | | | | | (FDA). FDA does not | | | | | | require this test to go | | | | | | through premarket FDA | | | | | | review. This test is | | | | | | used for clinical | | | | | | purposes. It should not | | | | | | be regarded as | | | | | | investigational or for | | | | | | research. This | | | | | | laboratory is certified | | | | | | under the Clinical | | | | | | Laboratory Improvement | | | | | | Amendments (CLIA) as | | | | | | qualified to perform | | | | | | high complexity clinical | | | | | | laboratory testing. | | | | + + + + + + + + | Specimen | + + | Tissue - Knee region | | structure (body | | structure) | + + | Tissue - Knee region | | structure (body | | structure) | + + + + + + + | Performing | Address | City/State/Zipcode | Phone Number | | Organization | | | | + + + + + | [facility] | [address] | [place] [address] | | | PATHOLOGY | [address] | | | + + + + + CULTURE, BODY FLUID (06/12/2018 1:43 PM PDT) + + + + + + | Component | Value | Ref Range | Performed | Pathologist | | | | | At | Signature | + + + + + + | CULTURE | Staphylococcus | | [facility] - | | | RESULT | epidermidis (A) | | [facility] - | | | | | | [place] | | + + + + + + + + | Specimen | + + | Fluid - Knee region | | structure (body | | structure) | + + + + + | Narrative | Performed At | + + + | Culture Report: Staphylococcus epidermidis No anaerobic | [facility] - | | organisms isolated | [facility] - | | | [place] | + + + + + + + + | Organism | Antibiotic | Method | Susceptibility | + + + + + | Staphylococcus | Cefazolin | [place] | Sensitive | | epidermidis | | | | + + + + + | Staphylococcus | Clindamycin | [place] | Sensitive | | epidermidis | | | | + + + + + | Staphylococcus | Erythromycin | [place] | Sensitive | | epidermidis | | | | + + + + + | Staphylococcus | Oxacillin | [place] | Sensitive | | epidermidis | | | | + + + + + | Staphylococcus | Trimethoprim/Sulfa | [place] | Sensitive | | epidermidis | | | | + + + + + | Staphylococcus | Tetracycline | [place] | Resistant | | epidermidis | | | | + + + + + | Staphylococcus | Vancomycin | [place] | Sensitive | | epidermidis | | | | + + + + + + + + + + | Performing | Address | City/State/Zipcode | Phone Number | | Organization | | | | + + + + + | [facility] - | [address] | [place] [address] | | | REPUBLIC | | | | + + + + + CAPILLARY BLOOD GLUCOSE (NO CHG), POC (06/12/2018 10:53 AM PDT) + +-------+ + + + | Component | Value | Ref Range | Performed | Pathologist | | | | | At | Signature | + +-------+ + + + | BLOOD | 91 | 70 - 99 mg/dL | [facility] - | | | GLUCOSE, | | | [place] | | | POC | | | [facility] | | | | | | OF CARE | | | | | | TESTS | | + +-------+ + + + + + | Specimen | + + | | + + + + + + + | Performing | Address | City/State/Zipcode | Phone Number | | Organization | | | | + + + + + | [facility] | [address] | [place] | | | [facility] OF CARE | [address] | [address] | | | TESTS | | | | + + + + + CAPILLARY BLOOD GLUCOSE (NO CHG), POC (06/12/2018 9:24 AM PDT) + +-------+ + + + | Component | Value | Ref Range | Performed | Pathologist | | | | | At | Signature | + +-------+ + + + | BLOOD | 85 | 70 - 99 mg/dL | [facility] - | | | GLUCOSE, | | | [place] | | | POC | | | [facility] | | | | | | OF CARE | | | | | | TESTS | | + +-------+ + + + + + | Specimen | + + | | + + + + + + + | Performing | Address | City/State/Zipcode | Phone Number | | Organization | | | | + + + + + | [facility] | [address] | [place], [place] | | | [facility] CARE | [address] | [phone] | | | TESTS | | | | + + + + + CAPILLARY BLOOD GLUCOSE (NO CHG), POC (06/12/2018 9:02 AM PDT) + +--------+ + + + | Component | Value | Ref Range | Performed | Pathologist | | | | | At | Signature | + +--------+ + + + | BLOOD | 61 (L) | 70 - 99 mg/dL | [facility] - | | | GLUCOSE, | | | [place] | | | POC | | | [facility] | | | | | | OF CARE | | | | | | TESTS | | + +--------+ + + + + + | Specimen | + + | | + + + + + + + | Performing | Address | City/State/Zipcode | Phone Number | | Organization | | | | + + + + + | [facility] | [address] | [place], [place] | | | [facility] | [address] | [address] | | | TESTS | | | | + + + + + CARDIOLOGY (06/12/2018 12:00 AM PDT) + + + | Narrative | Performed At | + + + | | | + + + CULTURE, BLOOD BACTI & YEAST [facility] (06/11/2018 10:29 PM PDT) + + + + + + | Component | Value | Ref Range | Performed | Pathologist | | | | | At | Signature | + + + + + + | CULTURE | Final Report:No Bacteria | | [facility] | | | RESULT | or Yeast isolated at 5 | | LABORATORY | | | | days. | | SERVICES, | | | | | | CORE | | + + + + + + + + | Specimen | + + | Blood | + + + + + + + | Performing | Address | City/State/Zipcode | Phone Number | | Organization | | | | + + + + + | [facility] | [address] | [place] [address] | | | SERVICES, [place] | [address] | | | + + + + + CULTURE, BLOOD BACTI & YEAST [facility] (06/11/2018 10:29 PM PDT) + + + + + + | Component | Value | Ref Range | Performed | Pathologist | | | | | At | Signature | + + + + + + | CULTURE | Final Report:No Bacteria | | [facility] | | | RESULT | or Yeast isolated at 5 | | LABORATORY | | | | days. | | SERVICES, | | | | | | CORE | | + + + + + + + + | Specimen | + + | Blood - Structure of | | right hand (body | | structure) | + + + + + + + | Performing | Address | City/State/Zipcode | Phone Number | | Organization | | | | + + + + + | [facility] | [address] | [place] [address] | | | SERVICES, CORE | [address] | | | + + + + + X-RAY KNEE 2 VIEWS RIGHT (06/11/2018 6:58 PM PDT) + + | Specimen | + + | | + + + + + | Narrative | Performed At | + + + | EXAM: KNEE 2 VIEWS RIGHT HISTORY: knee pain. History of gout. | [facility] | | Total knee arthroplasty in 2012. 2 weeks of knee pain. Concern for | RADIOLOGY VOICE | | septic prosthetic knee with arthrocentesis at outside hospital today | RECOGNITION 2 | | demonstrating fluid white blood cell count 78,000 with 95% | | | neutrophils; no crystals. COMPARISON: None available. | | | FINDINGS: Total knee arthroplasty is noted. 1.5 mm of lucency is | | | seen along the anterior aspect of the femoral component. No lucency at | | | the tibial component is identified. Heterogeneous lytic and sclerotic | | | appearance of the patella with calcification of the quadriceps and | | | patellar tendons. No acute fracture identified. Kd-Stieda | | | lesion noted. Mild osteopenia of the femur and patella adjacent to the | | | arthroplasties. Moderate suprapatellar joint effusion. Calcified | | | atherosclerotic disease. Moderate soft tissue swelling. | | | IMPRESSION: Moderate suprapatellar joint effusion, representing | | | known septic effusion given recent aspiration. Discussed with Dr. Valle | | | at time of dictation. Lytic and sclerotic appearance to the | | | patella. Comparison with prior radiographs would be helpful to | | | determine chronicity if there is concern for osteomyelitis; radiograph | | | is insensitive for acute osteomyelitis. Moderate soft tissue | | | swelling. I have personally reviewed the images and, if necessary, | | | edited the report. I agree with the report as now presented. | | | Final signature: Riky Lewis MD 06/11/2018 8:30 PM Preliminary: | | | Riky Lewis MD Dictation initiated: Riky Lewis MD | | | 06/11/2018 8:14 PM | | + + + + + | Procedure Note | + + | Service Account, Radiant Res In Interface - 06/11/2018 8:31 PM PDT EXAM: KNEE 2 | | VIEWS RIGHT HISTORY: knee pain. History of gout. Total knee arthroplasty in 2012. 2 | | weeks of knee pain. Concern for septic prosthetic knee with arthrocentesis at outside | | hospital today demonstrating fluid white blood cell count 78,000 with 95% neutrophils; | | no crystals. COMPARISON: None available. FINDINGS: Total knee arthroplasty is noted. 1.5 | | mm of lucency is seen along the anterior aspect of the femoral component. No lucency at | | the tibial component is identified. Heterogeneous lytic and sclerotic appearance of the | | patella with calcification of the quadriceps and patellar tendons. No acute fracture | | identified. Kd-Stieda lesion noted. Mild osteopenia of the femur and patella | | adjacent to the arthroplasties. Moderate suprapatellar joint effusion. Calcified | | atherosclerotic disease. Moderate soft tissue swelling. IMPRESSION: Moderate | | suprapatellar joint effusion, representing known septic effusion given recent | | aspiration. Discussed with Dr. Valle at time of dictation. Lytic and sclerotic appearance | | to the patella. Comparison with prior radiographs would be helpful to determine | | chronicity if there is concern for osteomyelitis; radiograph is insensitive for acute | | osteomyelitis. Moderate soft tissue swelling. I have personally reviewed the images and, | | if necessary, edited the report. I agree with the report as now presented. Final | | signature: Riky Lewis MD 06/11/2018 8:30 PM Preliminary: Riky Lewis MD | | Dictation initiated: Riky Lewis MD 06/11/2018 8:14 PM | |Moderate soft tissue swelling. | | | |I have personally reviewed the images and, if necessary, edited the report. I agree with th e report as now presented. | | | |Final signature: Riky Lewis MD 06/11/2018 8:30 PM | |Preliminary: Riky Lewis MD | |Dictation initiated: Riky Lewis MD 06/11/2018 8:14 PM | + + + +---------+ + + | Performing | Address | City/State/Zipcode | Phone Number | | Organization | | | | + +---------+ + + | [facility] | | | | | VOICE RECOGNITION 2 | | | | + +---------+ + + CBC AND AUTO DIFF (06/11/2018 6:12 PM PDT) + + + + + + | Component | Value | Ref Range | Performed | Pathologist | | | | | At | Signature | + + + + + + | WHITE CELL | 9.95 | 3.50 - 10.80 | [facility] | | | COUNT | | K/cu mm | LABORATORY | | | | | | SERVICES, | | | | | | CORE | | + + + + + + | RED CELL | 3.44 (L) | 4.50 - 6.00 | [facility] | | | COUNT | | M/cu mm | LABORATORY | | | | | | SERVICES, | | | | | | CORE | | + + + + + + | HEMOGLOBIN | 10.8 (L) | 13.5 - 17.5 | [facility] | | | | | g/dL | LABORATORY | | | | | | SERVICES, | | | | | | CORE | | + + + + + + | HEMATOCRIT | 31.7 (L) | 41.0 - 53.0 % | [facility] | | | | | | LABORATORY | | | | | | SERVICES, | | | | | | CORE | | + + + + + + | MCV | 92.2 | 80.0 - 100.0 fL | [facility] | | | | | | LABORATORY | | | | | | SERVICES, | | | | | | CORE | | + + + + + + | MCHC | 34.1 | 32.0 - 36.0 | [facility] | | | | | g/dL | LABORATORY | | | | | | SERVICES, | | | | | | CORE | | + + + + + + | RDW SD | 62.1 (H) | 35.1 - 46.3 fL | [facility] | | | | | | LABORATORY | | | | | | SERVICES, | | | | | | CORE | | + + + + + + | PLATELET | 188 | 150 - 400 K/cu | [facility] | | | COUNT | | mm | LABORATORY | | | | | | SERVICES, | | | | | | CORE | | + + + + + + | MPV | 9.3 (L) | 9.7 - 12.3 fL | [facility] | | | | | | LABORATORY | | | | | | SERVICES, | | | | | | CORE | | + + + + + + | NRBC% | 0.2 | 0.0 - 0.3 % | [facility] | | | | | | LABORATORY | | | | | | SERVICES, | | | | | | CORE | | + + + + + + | NRBC# | 0.02 | 0.00 - 0.02 | [facility] | | | | | K/cu mm | LABORATORY | | | | | | SERVICES, | | | | | | CORE | | + + + + + + | NEUTROPHIL | 65.9 | 50.0 - 70.0 % | [facility] | | | % | | | LABORATORY | | | | | | SERVICES, | | | | | | CORE | | + + + + + + | LYMPHOCYTE | 21.3 | 18.0 - 42.0 % | [facility] | | | % | | | LABORATORY | | | | | | SERVICES, | | | | | | CORE | | + + + + + + | MONOCYTE % | 11.4 (H) | 3.5 - 9.0 % | [facility] | | | | | | LABORATORY | | | | | | SERVICES, | | | | | | CORE | | + + + + + + | EOS % | 0.3 (L) | 1.0 - 3.0 % | [facility] | | | | | | LABORATORY | | | | | | SERVICES, | | | | | | CORE | | + + + + + + | BASO % | 0.3 | 0.0 - 2.0 % | [facility] | | | | | | LABORATORY | | | | | | SERVICES, | | | | | | CORE | | + + + + + + | IG% | 0.8Comment: Increased | 0.0 - 1.0 % | [facility] | | | | immature granulocytes | | LABORATORY | | | | (IG) define a left | | SERVICES, | | | | shift. Immature | | CORE | | | | granulocytes (IG) are an | | | | | | automated count of | | | | | | metamyelocytes, | | | | | | myelocytes and | | | | | | promyelocytes. Bands | | | | | | are not included in the | | | | | | IG count. Bands are | | | | | | included in the | | | | | | neutrophil count. | | | | + + + + + + | NEUTROPHIL | 6.56 | 1.80 - 7.70 | [facility] | | | # | | K/cu mm | LABORATORY | | | | | | SERVICES, | | | | | | CORE | | + + + + + + | LYMPHOCYTE | 2.12 | 1.00 - 4.80 | [facility] | | | # | | K/cu mm | LABORATORY | | | | | | SERVICES, | | | | | | CORE | | + + + + + + | MONOCYTE # | 1.13 (H) | 0.10 - 0.90 | [facility] | | | | | K/cu mm | LABORATORY | | | | | | SERVICES, | | | | | | CORE | | + + + + + + | EOS # | 0.03 | 0.00 - 0.50 | [facility] | | | | | K/cu mm | LABORATORY | | | | | | SERVICES, | | | | | | CORE | | + + + + + + | BASO # | 0.03 | 0.00 - 0.10 | [facility] | | | | | K/cu mm | LABORATORY | | | | | | SERVICES, | | | | | | CORE | | + + + + + + | IG# | 0.08 | 0.00 - 0.10 | [facility] | | | | | K/cu mm | LABORATORY | | | | | | SERVICES, | | | | | | CORE | | + + + + + + + + | Specimen | + + | Blood - Blood | | (substance) | + + + + + | Narrative | Performed At | + + + | New pediatric reference ranges for Lymphocyte % in effect April 09 | [facility] | | 2018. New reference ranges for MCV, MCHC, PLT, IG% and IG# | LABORATORY | | effective 03/05/2018 Increased immature granulocytes (IG) define a | SERVICES, CORE | | left shift. Immature granulocytes (IG) are an automated count of | | | metamyelocytes, myelocytes and promyelocytes. Bands are not included | | | in the IG count. Bands are included in the neutrophil count. | | + + + + + + + + | Performing | Address | City/State/Zipcode | Phone Number | | Organization | | | | + + + + + | [facility] | [address] | [place] [address] | | | SERVICES, CORE | [address] | | | + + + + + RAINBOW HOLD TUBE - RED TOP (06/11/2018 6:12 PM PDT) + + | Specimen | + + | Blood - Blood | | (substance) | + + + + + + + | Performing | Address | City/State/Zipcode | Phone Number | | Organization | | | | + + + + + | [facility] | [address] | [place] [address] | | | SERVICES, CORE | [address] | | | + + + + + BLOOD BANK HOLD TUBE - DON T PROCESS (06/11/2018 6:12 PM PDT) + + + + + + | Component | Value | Ref Range | Performed | Pathologist | | | | | At | Signature | + + + + + + | SPECIMEN | Sample received with | | [facility] | | | COLLECTED, | adeq label/volume to | | LABORATORY | | | HELD | process | | SERVICES, | | | | | | TRANSFUSION | | | | | | MEDICINE | | + + + + + + + + | Specimen | + + | Blood - Blood | | (substance) | + + + + + + + | Performing | Address | City/State/Zipcode | Phone Number | | Organization | | | | + + + + + | [facility] | [address] | [place] [address] | | | SERVICES, | [address] | | | | TRANSFUSION MEDICINE | | | | + + + + + RAINBOW HOLD TUBE - BLUE TOP (06/11/2018 6:12 PM PDT) + + | Specimen | + + | Blood - Blood | | (substance) | + + + + + + + | Performing | Address | City/State/Zipcode | Phone Number | | Organization | | | | + + + + + | [facility] | [address] | [place] [address] | | | SERVICES, CORE | [address] | | | + + + + + COMPLETE METABOLIC SET (NA,K,CL,CO2,BUN,CREAT,GLUC,CA,AST,ALT,BILI TOTAL,ALK PHOS,ALB,PROT TOTAL) (06/11/2018 6:12 PM PDT) + + + + + + | Component | Value | Ref Range | Performed | Pathologist | | | | | At | Signature | + + + + + + | GLUCOSE, | 199 (H) | 70 - 99 mg/dL | [facility] | | | PLASMA | | | LABORATORY | | | (LAB) | | | SERVICES, | | | | | | CORE | | + + + + + + | BUN, PLASMA | 37 (H) | 6 - 20 mg/dL | [facility] | | | (LAB) | | | LABORATORY | | | | | | SERVICES, | | | | | | CORE | | + + + + + + | CREATININE | 2.01 (H) | 0.70 - 1.30 | [facility] | | | PLASMA | | mg/dL | LABORATORY | | | (LAB) | | | SERVICES, | | | | | | CORE | | + + + + + + | EGFR | 39 (L) | >60 mL/min | [facility] | | | - | | | LABORATORY | | | [place] | | | SERVICES, | | | | | | CORE | | + + + + + + | EGFR NON | 32 (L) | >60 mL/min | [facility] | | | -MAYDA | | | LABORATORY | | | RICAN | | | SERVICES, | | | | | | CORE | | + + + + + + | SODIUM, | 135 (L) | 136 - 145 | [facility] | | | PLASMA | | mmol/L | LABORATORY | | | (LAB) | | | SERVICES, | | | | | | CORE | | + + + + + + | POTASSIUM, | 3.8 | 3.4 - 5.0 | [facility] | | | PLASMA | | mmol/L | LABORATORY | | | (LAB) | | | SERVICES, | | | | | | CORE | | + + + + + + | CHLORIDE, | 99 | 97 - 108 mmol/L | [facility] | | | PLASMA | | | LABORATORY | | | (LAB) | | | SERVICES, | | | | | | CORE | | + + + + + + | TOTAL CO2, | 31 | 21 - 32 mmol/L | [facility] | | | PLASMA | | | LABORATORY | | | (LAB) | | | SERVICES, | | | | | | CORE | | + + + + + + | CALCIUM, | 8.5 (L) | 8.6 - 10.2 | [facility] | | | PLASMA | | mg/dL | LABORATORY | | | (LAB) | | | SERVICES, | | | | | | CORE | | + + + + + + | CALCIUM(ALB | 9.5 | 8.6 - 10.2 | [facility] | | | CORRECTED) | | mg/dL | LABORATORY | | | | | | SERVICES, | | | | | | CORE | | + + + + + + | BILIRUBIN | 0.7 | 0.3 - 1.2 mg/dL | [facility] | | | TOTAL | | | LABORATORY | | | | | | SERVICES, | | | | | | CORE | | + + + + + + | TOTAL | 7.3 | 6.4 - 8.2 g/dL | [facility] | | | PROTEIN, | | | LABORATORY | | | PLASMA | | | SERVICES, | | | (LAB) | | | CORE | | + + + + + + | ALBUMIN, | 2.8 (L) | 3.5 - 4.7 g/dL | [facility] | | | PLASMA | | | LABORATORY | | | (LAB) | | | SERVICES, | | | | | | CORE | | + + + + + + | ALK PHOS | 51 (L) | 56 - 119 U/L | [facility] | | | | | | LABORATORY | | | | | | SERVICES, | | | | | | CORE | | + + + + + + | AST(SGOT) | 49 (H) | <=41 U/L | [facility] | | | | | | LABORATORY | | | | | | SERVICES, | | | | | | CORE | | + + + + + + | ALT (SGPT) | 65 (H) | <=60 U/L | [facility] | | | | | | LABORATORY | | | | | | SERVICES, | | | | | | CORE | | + + + + + + | ANION GAP | 5 | 4 - 11 mmol/L | [facility] | | | | | | LABORATORY | | | | | | SERVICES, | | | | | | CORE | | + + + + + + | ANION | 8 | 4 - 11 mmol/L | [facility] | | | GAP(ALB | | | LABORATORY | | | CORRECTED) | | | SERVICES, | | | | | | CORE | | + + + + + + | POTASSIUM | No Hemo | | [facility] | | | CMNT | | | LABORATORY | | | | | | SERVICES, | | | | | | CORE | | + + + + + + | BILI T CMNT | No Hemo | | [facility] | | | | | | LABORATORY | | | | | | SERVICES, | | | | | | CORE | | + + + + + + | AST CMNT | No Hemo | | [facility] | | | | | | LABORATORY | | | | | | SERVICES, | | | | | | CORE | | + + + + + + + + | Specimen | + + | Blood - Blood | | (substance) | + + + + + | Narrative | Performed At | + + + | GFR is estimated using the MDRD equation recommended by the | [facility] | | National Kidney Disease Education Program. Estimated GFR | LABORATORY | | Interpretive Information: <60 mL/min/1.73 sq m | SERVICES, CORE | | Chronic Kidney Disease <15 mL/min/1.73 sq m | | | Kidney Failure Estimated GFR greater that 60 mL/min/1.73 sq m is of | | | limited clinical value. The MDRD equation is not valid in the | | | following situations: - Patients under 18 years of age - Severe | | | malnutrition or obesity - Vegetarian diet - Rapidly changing kidney | | | function - Amputees, paraplegics, or other muscle-wasting diseses | | + + + + + + + + | Performing | Address | City/State/Zipcode | Phone Number | | Organization | | | | + + + + + | [facility] | [address] | [place] [address] | | | SERVICES, CORE | [address] | | | + + + + + APTT (ACT. PART. THROMBO TIME) (06/11/2018 6:12 PM PDT) + + + + + + | Component | Value | Ref Range | Performed | Pathologist | | | | | At | Signature | + + + + + + | APTT | 36.5 (H) | 26.0 - 36.0 | [facility] | | | | | seconds | LABORATORY | | | | | | SERVICES, | | | | | | CORE | | + + + + + + + + | Specimen | + + | Blood - Blood | | (substance) | + + + + + | Narrative | Performed At | + + + | APTT values for monitoring heparin therapy may be affected by | [facility] | | specimens processed >1 hour after collection. APTT Therapeutic | LABORATORY | | Range: (75 - 120) sec Heparin | STEF, CORE | | levels of 0.35 - 0.7 U/mL | | + + + + + + + + | Performing | Address | City/State/Zipcode | Phone Number | | Organization | | | | + + + + + | [facility] | [address] | [place] [address] | | | KAREEM FINCH | [address] | | | + + + + + INR (06/11/2018 6:12 PM PDT) + + + + + + | Component | Value | Ref Range | Performed | Pathologist | | | | | At | Signature | + + + + + + | INR | 1.31 (H) | 0.90 - 1.20 INR | [facility] | | | | | | LABORATORY | | | | | | SERVICES, | | | | | | CORE | | + + + + + + + + | Specimen | + + | Blood - Blood | | (substance) | + + + + + | Narrative | Performed At | + + + | INR Therapeutic ranges for full anticoagulation: INR for | [facility] | | Venous Thromboembolism (2.0 - 3.0) INR INR for | LABORATORY | | most patients with mech. valves (2.5 - 3.5) INR | STEF, KAREEM | + + + + + + + + | Performing | Address | City/State/Zipcode | Phone Number | | Organization | | | | + + + + + | [facility] | [address] | [place] [address] | | | SERVICES, KAREEM | [address] | | | + + + + + C-REACTIVE PROTEIN (06/11/2018 6:12 PM PDT) + + + + + + | Component | Value | Ref Range | Performed | Pathologist | | | | | At | Signature | + + + + + + | C-REACTIVE | 143.0 (H) | <10.0 mg/L | [facility] | | | PROTEIN | | | LABORATORY | | | | | | SERVICES, | | | | | | CORE | | + + + + + + + + | Specimen | + + | Blood - Blood | | (substance) | + + + + + | Narrative | Performed At | + + + | New method, new reference range and new reporting units as of | [facility] | | 03/30/2014. | LABORATORY | | | SERVICES, CORE | + + + + + + + + | Performing | Address | City/State/Zipcode | Phone Number | | Organization | | | | + + + + + | [facility] | [address] | [place] [address] | | | SERVICES, CORE | [address] | | | + + + + + SEDIMENTATION RATE (06/11/2018 6:12 PM PDT) + +--------+ + + + | Component | Value | Ref Range | Performed | Pathologist | | | | | At | Signature | + +--------+ + + + | SEDIMENTATI | 87 (H) | 0 - 20 mm/hr | [facility] | | | ON RATE | | | LABORATORY | | | | | | SERVICES, | | | | | | CORE | | + +--------+ + + + + + | Specimen | + + | Blood - Blood | | (substance) | + + + + + | Narrative | Performed At | + + + | Conditions such as cold agglutinins, anemia, hemolysis, icterus or | [facility] | | lipemia may affect sedimentation rate. | LABORATORY | | | SERVICES, CORE | + + + + + + + + | Performing | Address | City/State/Zipcode | Phone Number | | Organization | | | | + + + + + | [facility] | [address] | [place] [address] | | | SERVICES, CORE | [address] | | | + + + + + ED INFORMATION EXCHANGE (06/11/2018 6:04 PM PDT) + + | Specimen | + + | | + + + + + | Narrative | Performed At | + + + | [id number] This patient has registered at the [place] | [facility] | | [facility] Emergency Department For more | MEDICAL | | information visit: | [facility]OLOGIES | | [email or web address] | | | 35ffec Security Events No recent Security Events currently on file | | | ED Care Guidelines There are currently no ED Care Guidelines in | | | DANIEL for this patient. Please check your facility's medical records | | | system. Recent Emergency Department Visit Summary Admit Date | | | Facility City State Type Major Type Diagnoses or Chief Complaint Aug | | | 2017 [facility] [place] Emergency | | | Emergency 10,800. REF Recent Inpatient Visit | | | Summary No recorded inpatient visits. E.D. Visit Count (12 mo.) | | | Facility Visits [facility] 1 Total 1 | | | Note: Visits indicate total known visits. PDMP Report Rx | | | Details (6 Mo.) Fill Date Drug Description Qty. Prescriber CS MED | | | 2018-04-28 ACETAMINOPHEN-COD #3 TABLET 60 GILMA ESTRADA MD 3 9 | | | 2018-03-02 ACETAMINOPHEN-COD #3 TABLET 60 LOLI STEVENS MD 3 9 | | | 2018-01-27 ACETAMINOPHEN-COD #3 TABLET 60 LOLI STEVENS MD 3 9 Rx | | | Summary (12 Mo.) Metric Count CS II-V Rx 7 CS-II Rx 0 Quantity | | | Dispensed 420 Unique Prescribers 2 Unique Pharmacies 1 Benzos 0 | | | Opioids 7 Long Acting Opioids 0 The above information is | | | provided for the sole purpose of patient treatment. Use of this | | | information beyond the terms of Data Sharing Memorandum of | | | Understanding and License Agreement is prohibited. In certain cases | | | not all visits may be represented. Consult the aforementioned | | | facilities for additional information. 2018 [employer] | | | [facility]. - [place], [place] - | | | [email or web address] | | + + + + + | Procedure Note | + + | Service Account, Rtf Results Inbound - 06/11/2018 6:06 PM PDT Formatting of this | | note might be different from the original.DANIEL?NOTIFICATION?06/11/2018 18:04?CHACE, | | JÚNIOR? patient has registered at the [facility] | | [place] Emergency Department For more information visit: | | [email or web address] Security | | EventsNo recent Security Events currently on fileED Care GuidelinesThere are currently | | no ED Care Guidelines in DANIEL for this patient. Please check your facility's medical | | records system.Recent Emergency Department Visit SummaryAdmit Date Facility [facility] | | Type Major Type Diagnoses or Chief Complaint Jun 11, 2018 [facility] | | [facility] [place] Emergency Emergency 10,800. REF Recent Inpatient Visit | | SummaryNo recorded inpatient visits. E.D. Visit Count (12 mo.)Facility Visits [place] | | [facility] 1 Total 1 Note: Visits indicate total known visits. PDMP | | ReportRx Details (6 Mo.)Fill Date Drug Description Qty. Prescriber CS MED 2018-04-28 | | ACETAMINOPHEN-COD #3 TABLET 60 GILMA ESTRADA MD 3 9 2018-03-02 ACETAMINOPHEN-COD #3 | | TABLET 60 LOLI STEVENS MD 3 9 2018-01-27 ACETAMINOPHEN-COD #3 TABLET 60 LOLI STEVENS | | 3 9 Rx Summary (12 Mo.)Metric Count CS II-V Rx 7 CS-II Rx 0 Quantity Dispensed 420 | | [facility] Pres[facility] 2 Unique Pharmacies 1 Benzos 0 Opioids 7 Long Acting Opioids 0 The | | above information is provided for the sole purpose of patient treatment. Use of this | | information beyond the terms of Data Sharing Memorandum of Understanding and License | | Agreement is prohibited. In certain cases not all visits may be represented. Consult the | | aforementioned facilities for additional information. ? 2018 [employer] | | Layer. - [place], [place] - [email or web address] | |Facility Visits | |[facility] 1 | |Total 1 | |Note: Visits indicate total known visits. | | | |PDMP Report | |Rx Details (6 Mo.) | |Fill Date Drug Description Qty. Prescriber CS MED | |2018-04-28 ACETAMINOPHEN-COD #3 TABLET 60 GILMA ESTRADA MD 3 9 | |2018-03-02 ACETAMINOPHEN-COD #3 TABLET 60 LOLI STEVENS MD 3 9 | |2018-01-27 ACETAMINOPHEN-COD #3 TABLET 60 LOLI STEVENS MD 3 9 | | | |Rx Summary (12 Mo.) | |Metric Count | |CS II-V Rx 7 | |CS-II Rx 0 | |Quantity Dispensed 420 | |Unique Prescribers 2 | |Unique Pharmacies 1 | |Benzos 0 | |Opioids 7 | |Long Acting Opioids 0 | | | | | |The above information is provided for the sole purpose of patient treatment. Use of this in formation beyond the terms of Data Sharing Memorandum of Understanding and License Agreement is prohibited. In | |certain cases not all visits may be represented. Consult the aforementioned facilities for additional information. | |? 2018 [employer] - [place], [place] - [email or web address] | + + + + + + + | Performing | Address | City/State/Zipcode | Phone Number | | Organization | | | | + + + + + | [facility] | [address] | [place], [place] | [phone] | | TECHNOLOGIES | [address] | [address] | | + + + + + documented in this encounter Visit Diagnoses + + | Diagnosis | + + | Pyogenic arthritis of right knee joint, due to unspecified organism (HCC) - Primary | + + | Infection associated with internal right knee prosthesis, subsequent encounter | + + | Coronary artery disease involving coronary bypass graft without angina pectoris | + + | Hypertension Unspecified essential hypertension | + + | Ischemic cardiomyopathy Other specified forms of chronic ischemic heart disease | + + | Systolic heart failure (HCC) | + + | Obstructive sleep apnea Obstructive sleep apnea (adult) (pediatric) | + + | Atrial fibrillation (HCC) Atrial fibrillation | + + | Hyperlipidemia Other and unspecified hyperlipidemia | + + | Heart block Conduction disorder, unspecified | + + | Pacemaker-dependent due to [place] cardiac rhythm insufficient to support life | + + | 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) Type II or unspecified type | | diabetes mellitus without mention of complication, not stated as uncontrolled | + + | Morbid obesity (HCC) Morbid obesity | + + | CKD (chronic kidney disease), stage III (HCC) Chronic kidney disease, Stage III | | (moderate) | + + | 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 (HCC) | + + | Chronic anticoagulation Encounter for long-term (current) use of anticoagulants | + + | Encounter for long-term (current) use of antibiotics | + + documented in this encounter Administered Medications + +--------+ + +------+------+ | Medication Order | MAR | Action | Dose | Rate | Site | | | Action | Date | | | | + +--------+ + +------+------+ | acetaminophen-codeine (TYLENOL | Given | 06/17/20 | 1 tablet | | | | #3) 300-30 mg 1 tablet 1 tablet, | | 18 3:56 | | | | | oral, EVERY 6 HOURS NEEDED, | | AM PDT | | | | | Starting 06/13/18 at 1822, | | | | | | | Until 06/17/18 at 1718, | | | | | | | moderate pain | | | | | | + +--------+ + +------+------+ +-------+ + +---+---+ | Given | 06/16/20 | 1 tablet | | | | | 18 10:06 | | | | | | PM PDT | | | | +-------+ + +---+---+ | Given | 06/16/20 | 1 tablet | | | | | 18 3:57 | | | | | | PM PDT | | | | +-------+ + +---+---+ +---+---+ | | | +---+---+ + +-------+ +--------+---+---+ | allopurinol (ZYLOPRIM) tablet | Given | 06/13/20 | 300 mg | | | | 300 mg 300 mg, oral, DAILY, | | 18 1:16 | | | | | First dose on 06/13/18 at | | PM PDT | | | | | 1200, Until Discontinued | | | | | | + +-------+ +--------+---+---+ +---+---+ | | | +---+---+ + +-------+ +--------+---+---+ | allopurinol (ZYLOPRIM) tablet | Given | 06/17/20 | 300 mg | | | | 300 mg 300 mg, oral, DAILY, | | 18 9:59 | | | | | First dose (after last | | AM PDT | | | | | modification) on 06/14/18 at | | | | | | | 1000, Until Discontinued | | | | | | + +-------+ +--------+---+---+ +-------+ +--------+---+---+ | Given | 06/16/20 | 300 mg | | | | | 18 9:46 | | | | | | AM PDT | | | | +-------+ +--------+---+---+ | Given | 06/15/20 | 300 mg | | | | | 18 9:53 | | | | | | AM PDT | | | | +-------+ +--------+---+---+ +---+---+ | | | +---+---+ + +-------+ +---------+---+---+ | carvedilol (COREG) tablet 12.5 | Given | 06/17/20 | 12.5 mg | | | | mg 12.5 mg, oral, TWICE DAILY, | | 18 10:02 | | | | | First dose on Fri06/12/18 at | | AM PDT | | | | | 2145, Until Discontinued | | | | | | + +-------+ +---------+---+---+ +-------+ +---------+---+---+ | Given | 06/16/20 | 12.5 mg | | | | | 18 9:37 | | | | | | PM PDT | | | | +-------+ +---------+---+---+ | Given | 06/16/20 | 12.5 mg | | | | | 18 9:47 | | | | | | AM PDT | | | | +-------+ +---------+---+---+ +---+---+ | | | +---+---+ + +---------+ +-----+---+---+ | ceFAZolin IV 2 gram in dextrose | New Bag | 06/16/20 | 2 g | | | | (RTU) 2 g, intravenous, EVERY 8 | | 18 3:57 | | | | | HOURS, First dose on Fri06/15/18 | | PM PDT | | | | | at 2200, Until Discontinued | | | | | | + +---------+ +-----+---+---+ +---------+ +-----+-------+---+ | New Bag | 06/16/20 | 2 g | 200 | | | | 18 6:05 | | mL/hr | | | | AM PDT | | | | +---------+ +-----+-------+---+ | New Bag | 06/15/20 | 2 g | | | | | 18 10:29 | | | | | | PM PDT | | | | +---------+ +-----+-------+---+ +---+---+ | | | +---+---+ + +---------+ +-----+---+---+ | ceFAZolin IV 2 gram in dextrose | New Bag | 06/17/20 | 2 g | | | | (RTU) 2 g, intravenous, EVERY 8 | | 18 8:04 | | | | | HOURS, First dose (after last | | AM PDT | | | | | modification) on 06/17/18 at | | | | | | | 0000, Until Discontinued | | | | | | + +---------+ +-----+---+---+ +---------+ +-----+---+---+ | New Bag | 06/16/20 | 2 g | | | | | 18 11:31 | | | | | | PM PDT | | | | +---------+ +-----+---+---+ +---+---+ | | | +---+---+ + +-------+ +--------+---+---+ | cholecalciferol (Vitamin D3) | Given | 06/17/20 | 1,000 | | | | (VITAMIN D-3) tablet 1,000 Units | | 18 9:59 | Units | | | | 1,000 Units, oral, DAILY, First | | AM PDT | | | | | dose on 06/13/18 at 0900, | | | | | | | Until Discontinued | | | | | | + +-------+ +--------+---+---+ +-------+ +--------+---+---+ | Given | 06/16/20 | 1,000 | | | | | 18 9:47 | Units | | | | | AM PDT | | | | +-------+ +--------+---+---+ | Given | 06/15/20 | 1,000 | | | | | 18 9:53 | Units | | | | | AM PDT | | | | +-------+ +--------+---+---+ + +---+ | | | + +---+ | dextrose 50 % in water IV 25 mL | | | 25 mL, intravenous, NEEDED, | | | Starting [facility] 06/11/18 at 2306, | | | Until Fri06/17/18 at 1718, CBG | | | less than 70 mg/dL if patient | | | unable to take PO, per Adult | | | Hypoglycemia Protocol | | + +---+ | | | + +---+ + +-------+ +--------+---+---+ | fentaNYL (SUBLIMAZE) injection | Given | 06/12/20 | 50 mcg | | | | 50 mcg 50 mcg, intravenous, | | 18 3:52 | | | | | POSTPROCEDURE PRN, 4 doses, | | PM PDT | | | | | Starting Fri06/12/18 at 1403, | | | | | | | Until Fri06/12/18 at 2127, severe | | | | | | | pain while in Phase I Recovery | | | | | | + +-------+ +--------+---+---+ +---+---+ | | | +---+---+ + +-------+ +---------+---+---+ | fluticasone (FLONASE) 50 | Given | 06/13/20 | 1 spray | | | | mcg/actuation nasal spray 1 spray | | 18 6:32 | | | | | 1 spray, both nostrils, TWICE | | PM PDT | | | | | DAILY NEEDED, Starting Sat | | | | | | | 06/13/18 at 1821, Until Wed | | | | | | | 06/17/18 at 1718, allergy symptoms | | | | | | + +-------+ +---------+---+---+ +---+---+ | | | +---+---+ + +-------+ +--------+---+---+ | folic acid (FOLVITE) tablet 0.4 | Given | 06/17/20 | 0.4 mg | | | | mg 0.4 mg (400 mcg), oral, | | 18 9:59 | | | | | DAILY, First dose on 06/13/18 | | AM PDT | | | | | at 0900, Until Discontinued | | | | | | + +-------+ +--------+---+---+ +-------+ +--------+---+---+ | Given | 06/16/20 | 0.4 mg | | | | | 18 9:47 | | | | | | AM PDT | | | | +-------+ +--------+---+---+ | Given | 06/15/20 | 0.4 mg | | | | | 18 9:53 | | | | | | AM PDT | | | | +-------+ +--------+---+---+ + +---+ | | | + +---+ | glucagon (GLUCAGEN) injection 1 | | | mg 1 mg, intramuscular, | | | NEEDED, Starting [facility] 06/11/18 at | | | 2306, Until Fri06/17/18 at 1718, | | | CBG less than 70 mg/dL per Adult | | | Hypoglycemia Protocol | | + +---+ | | | + +---+ | glucose chewable tablet 16 g | | | 16 g, oral, NEEDED, Starting | | | Zandra 06/11/18 at 2306, Until Wed | | | 06/17/18 at 1718, CBG less than 70 | | | mg/dL per Adult Hypoglycemia | | | Protocol | | + +---+ | | | + +---+ + +-------+ +--------+---+---------+ | heparin, porcine (PF) injection | Given | 06/17/20 | 5,000 | | Abdomen | | 5,000 Units 5,000 Units, | | 18 5:33 | Units | | | | subcutaneous, EVERY 8 HOURS, | | AM PDT | | | | | First dose on 06/13/18 at | | | | | | | 1400, Until Discontinued | | | | | | + +-------+ +--------+---+---------+ +-------+ +--------+---+---------+ | Given | 06/16/20 | 5,000 | | Abdomen | | | 18 10:06 | Units | | | | | PM PDT | | | | +-------+ +--------+---+---------+ | Given | 06/16/20 | 5,000 | | Abdomen | | | 18 3:57 | Units | | | | | PM PDT | | | | +-------+ +--------+---+---------+ +---+---+ | | | +---+---+ + +-------+ +--------+---+---+ | HYDROmorphone (DILAUDID) | Given | 06/12/20 | 0.5 mg | | | | injection 0.2-0.5 mg 0.2-0.5 mg, | | 18 6:15 | | | | | intravenous, POSTPROCEDURE PRN, | | PM PDT | | | | | Starting Fri06/12/18 at 1403, | | | | | | | Until Fri06/12/18 at 2127, | | | | | | | moderate pain while in Phase I | | | | | | | Recovery | | | | | | + +-------+ +--------+---+---+ +-------+ +--------+---+---+ | Given | 06/12/20 | 0.3 mg | | | | | 18 5:57 | | | | | | PM PDT | | | | +-------+ +--------+---+---+ | Given | 06/12/20 | 0.2 mg | | | | | 18 5:45 | | | | | | PM PDT | | | | +-------+ +--------+---+---+ +---+---+ | | | +---+---+ + +-------+ +---------+---+--------+ | insulin lispro (HUMALOG) | Given | 06/16/20 | 2 Units | | Right | | injection subcutaneous, WITH | | 18 11:23 | | | Arm | | MEALS AND BEDTIME, First dose on | | PM PDT | | | | | 06/12/18 at 0800, Until | | | | | | | Discontinued | | | | | | + +-------+ +---------+---+--------+ +-------+ +---------+---+ + | Given | 06/16/20 | 6 Units | | Right | | | 18 6:38 | | | Arm | | | PM PDT | | | | +-------+ +---------+---+ + | Given | 06/15/20 | 2 Units | | Left Arm | | | 18 10:32 | | | | | | PM PDT | | | | +-------+ +---------+---+ + +---+---+ | | | +---+---+ + +---------+ +--------+---+---+ | lactated Ringers IV 500 mL, | New Bag | 06/15/20 | 500 mL | | | | intravenous, ONCE, 1 dose, Mon | | 18 9:54 | | | | | 06/15/18 at 0930 | | AM PDT | | | | + +---------+ +--------+---+---+ +---+---+ | | | +---+---+ + +-------+ + +---+---+ | multivitamin (THERA VITAMIN) 1 | Given | 06/17/20 | 1 tablet | | | | tablet 1 tablet, oral, DAILY, | | 18 9:59 | | | | | First dose on 06/13/18 at | | AM PDT | | | | | 0900, Until Discontinued | | | | | | + +-------+ + +---+---+ +-------+ + +---+---+ | Given | 06/16/20 | 1 tablet | | | | | 18 9:47 | | | | | | AM PDT | | | | +-------+ + +---+---+ | Given | 06/15/20 | 1 tablet | | | | | 18 9:49 | | | | | | AM PDT | | | | +-------+ + +---+---+ +---+---+ | | | +---+---+ + +-------+ +------+---+---+ | oxyCODONE (immediate release) | Given | 06/13/20 | 5 mg | | | | (ROXICODONE) tablet 2.5-5 mg | | 18 4:05 | | | | | 2.5-5 mg, oral, EVERY 6 HOURS | | AM PDT | | | | | NEEDED, Starting Fri06/12/18 at | | | | | | | 1618, Until 06/13/18 at 1823, | | | | | | | severe pain | | | | | | + +-------+ +------+---+---+ +-------+ +--------+---+---+ | Given | 06/12/20 | 2.5 mg | | | | | 18 9:51 | | | | | | PM PDT | | | | +-------+ +--------+---+---+ +---+---+ | | | +---+---+ + +---------+ +---------+---+---+ | piperacillin-tazobactam (ZOSYN) | New Bag | 06/13/20 | 3.375 g | | | | IV (minibag+) 3.375 g 3.375 g, | | 18 1:16 | | | | | intravenous, EVERY 8 HOURS, First | | PM PDT | | | | | dose (after last reorder) on Sat | | | | | | | 06/13/18 at 0400, Until | | | | | | | Discontinued | | | | | | + +---------+ +---------+---+---+ +---------+ +---------+---+---+ | New Bag | 06/13/20 | 3.375 g | | | | | 18 4:06 | | | | | | AM PDT | | | | +---------+ +---------+---+---+ +---+---+ | | | +---+---+ + +---------+ +-------+---+---+ | piperacillin-tazobactam (ZOSYN) | New Bag | 06/12/20 | 4.5 g | | | | IV (minibag+) 4.5 g 4.5 g, | | 18 10:19 | | | | | intravenous, ONCE, 1 dose, Fri | | PM PDT | | | | | 06/12/18 at 2145 | | | | | | + +---------+ +-------+---+---+ +---+---+ | | | +---+---+ + +-------+ +------+---+---+ | polyethylene glycol (MIRALAX) | Given | 06/16/20 | 17 g | | | | packet 17 g 17 g, oral, THREE | | 18 11:41 | | | | | TIMES DAILY NEEDED, Starting | | PM PDT | | | | | 06/12/18 at 2131, Until Wed | | | | | | | 06/17/18 at 1718, 1st line - for | | | | | | | no BM for 2 days | | | | | | + +-------+ +------+---+---+ +---+---+ | | | +---+---+ + +-------+ + +---+---+ | senna-docusate (SENOKOT S) | Given | 06/17/20 | 1 tablet | | | | 8.6-50 mg 1 tablet 1 tablet, | | 18 9:59 | | | | | oral, TWICE DAILY, First dose on | | AM PDT | | | | | Fri06/12/18 at 2145, Until | | | | | | | Discontinued | | | | | | + +-------+ + +---+---+ +-------+ + +---+---+ | Given | 06/16/20 | 1 tablet | | | | | 18 9:37 | | | | | | PM PDT | | | | +-------+ + +---+---+ | Given | 06/16/20 | 1 tablet | | | | | 18 9:47 | | | | | | AM PDT | | | | +-------+ + +---+---+ +---+---+ | | | +---+---+ + +-------+ +-------+---+---+ | simvastatin (ZOCOR) tablet 40 | Given | 06/13/20 | 40 mg | | | | mg 40 mg, oral, EVERY EVENING, | | 18 9:43 | | | | | First dose on Fri06/12/18 at | | PM PDT | | | | | 2145, Until Discontinued | | | | | | + +-------+ +-------+---+---+ +-------+ +-------+---+---+ | Given | 06/12/20 | 40 mg | | | | | 18 9:51 | | | | | | PM PDT | | | | +-------+ +-------+---+---+ +---+---+ | | | +---+---+ + +-------+ +-------+---+---+ | torsemide (DEMADEX) tablet 20 | Given | 06/17/20 | 20 mg | | | | mg 20 mg, oral, TWICE DAILY | | 18 8:04 | | | | | (DIURETIC), First dose on Fri | | AM PDT | | | | | 06/16/18 at 1700, Until | | | | | | | Discontinued | | | | | | + +-------+ +-------+---+---+ +-------+ +-------+---+---+ | Given | 06/16/20 | 20 mg | | | | | 18 5:36 | | | | | | PM PDT | | | | +-------+ +-------+---+---+ +---+---+ | | | +---+---+ + +---------+ + +---+---+ | vancomycin (VANCOCIN) IV 1,000 | New Bag | 06/12/20 | 1,000 mg | | | | mg 1,000 mg, intravenous, ONCE, | | 18 10:58 | | | | | 1 dose, [facility] 06/12/18 at 2300 | | PM PDT | | | | + +---------+ + +---+---+ +---+---+ | | | +---+---+ + +---------+ + +---+---+ | vancomycin (VANCOCIN) IV 1,250 | New Bag | 06/14/20 | 1,250 mg | | | | mg 1,250 mg, intravenous, EVERY | | 18 6:55 | | | | | 24 HOURS, First dose on Sat | | PM PDT | | | | | 06/13/18 at 1800, Until | | | | | | | Discontinued | | | | | | + +---------+ + +---+---+ +---------+ + +---+---+ | New Bag | 06/13/20 | 1,250 mg | | | | | 18 6:06 | | | | | | PM PDT | | | | +---------+ + +---+---+ +---+---+ | | | +---+---+ + +-------+ +--------+---+---+ | warfarin (COUMADIN) tablet 2.5 | Given | 06/16/20 | 2.5 mg | | | | mg 2.5 mg, oral, EVERY EVENING, | | 18 9:37 | | | | | First dose (after last | | PM PDT | | | | | modification) on Fri06/16/18 at | | | | | | | 2100, Until Discontinued | | | | | | + +-------+ +--------+---+---+ +---+---+ | | | +---+---+ + +-------+ +------+---+---+ | warfarin (COUMADIN) tablet 5 mg | Given | 06/15/20 | 5 mg | | | | 5 mg, oral, EVERY EVENING, | | 18 8:54 | | | | | First dose on Fri06/14/18 at | | PM PDT | | | | | 2100, Until Discontinued | | | | | | + +-------+ +------+---+---+ +-------+ +------+---+---+ | Given | 06/14/20 | 5 mg | | | | | 18 9:38 | | | | | | PM PDT | | | | +-------+ +------+---+---+ +---+---+ | | | +---+---+ documented in this encounter
--- OUTSIDE RECORDS SUMMARY | ~2020-06-30 | XMS | Encounter Summary ---
Demographics + + + | Address | [address] | | | [place] [address] | + + + | Home Phone | | + + + | Preferred Language | Unknown | + + + | Marital Status | | + + + | Restorationism Affiliation | 1077 | + + + | Race | White | + + + | Ethnic Group | Not or | + + + Author + + + | Author | [facility] | | | and [place] | + + + | Organization | [facility] | | | [...] Team Providers + +------+ + | Care Resident Care Manager Rn Name | Role | Phone | + [...] | | | | | | | Pacemaker | | | | | | | Dysphagia, | | | | | | | unspecified | | | | | | | type | | | | | | | [R13.10], | | | | | | | Pacemaker | | | | | | | [Z95.0] | | | | | | | Procedures | | | | | | | DE | | | | | | | ESOPHAGOGAST | | | | | | | RODUODENOSCO | | | | | | | PY TRANSORAL | | | | | | | DIAGNOSTIC | | | | | | | DE EGD | | | | | | | TRANSORAL | | | | | | | BIOPSY | | | | | | | SINGLE/MULTI | | | | | | | PLE DE EGD | | | | | | | BALLOON | | | | | | | DILATION | | | | | | | ESOPHAGUS | | | | | | | <30 MM DIAM | | | | | | | DE | | | | | | | ANESTHESIA | | | | | | | UPPER GI | | | | | | | ENDOSCOPIC | | | | | | | PX NOS EGD | | | | | | | WITH | | | | | | | DILITATION | | | +--------+--------+ + + + + Encounter Details +--------+---------+ + + + | Date | Type | Department | Care Team | Description | +--------+---------+ + + + | 02/10/ | Surgery | [facility] | Willow Colin MD | EGD WITH DILITATION | | 2019 | | [facility] | [address] | | | | | [address] | [address], | | | | | [place] | [place] [address] | | | | | [address] | [phone] | | | | | [phone] | | | +--------+---------+ + + + [...] + + + | Blood Pressure | 132/62 | 02/10/2019 12:32 PM | | | | | PDT | | + + + + + | Pulse | 90 | 02/10/2019 12:32 PM | | | | | PDT | | + + + + + | Temperature | 36.3 C (97.3 F) | 02/10/2019 12:32 PM | | | | | PDT | | + + + + + | Respiratory Rate | 16 | 02/10/2019 12:32 PM | | | | | PDT | | + + + + + | Oxygen Saturation | 94% | 02/10/2019 12:32 PM | | | | | PDT | | + + + + + | Inhaled Oxygen | - | - | | | Concentration | | | | + + + + + | Weight | 88.1 kg (194 lb 3.6 | 02/10/2019 12:32 PM | | | | oz) | PDT | | + + + + + | Height | 170.2 cm (5' 7") | 02/10/2019 12:32 PM | | | | | PDT | | + + + + + | Body Mass Index | 30.42 | 02/10/2019 12:32 PM | | | | | PDT | | + + + + + documented in this encounter Discharge Instructions Instructions Wanda Alvarez RN - 02/10/2019Formatting of this note might be different fro m the original. Recovery After Procedural Sedation (Adult) You have been given medicine by vein to make you sleep during your procedure. This may have included both a pain medicine and sleeping medicine. Most of the effects have worn off. But you may still have some drowsiness for the next 6 to 8 hours. Home care Follow these guidelines when you get home: For the next 8 hours, you should be watched by a responsible adult. This person should m matheus sure your condition is not getting worse. Don't drink any alcoholfor the next [address], operate dangerous machinery,make important business or personal decisions , or sign legal documentsduring the next 24 hours. Note: Your healthcare provider may tell you not to take any medicine by mouth for pain or s leep in the next 4 hours. These medicines may react with the medicines you were given in the hospital. This could cause a much stronger response than usual. Follow-up care Follow up with your healthcare provider if you are not alert and back to your usual level o f activity within 12 hours. When to seek medical advice Call your healthcare provider right away if any of these occur: Drowsiness gets worse Weakness or dizziness gets worse Repeated vomiting You can't be awakened Date Last Reviewed: 08/13/201619991714-7946 [employer]. [address] [place] [address]. All [facility] ts reserved. This information is not intended as a substitute for professional medical care. Always follow your healthcare professional's instructions. Esophageal Dilation A balloon dilator may be used to widen a stricture in the esophagus. Anesophageal dilation is a procedureused to widen a narrowed section of your esophagus. This is the tube that leads from your throat to your stomach. Narrowing (stricture) of the esophagus can cause problems. These include trouble swallowing. This sheet explains what to expect with esophageal dilation. Whyesophageal dilation is needed Several problems can be treated withesophageal dilation. They include: Peptic stricture.This is caused by reflux esophagitis. With this problem, the esophagu s is irritated by acid reflux (heartburn). This occurs when acid from your stomach flows shade k up into the esophagus. Stomach acid damages the lining of the esophagus. This leads to a b uildup of scar tissue. As a result, the esophagus is narrowed. Schatzki s ring.This is an abnormal ring of tissue. It forms where the esophagus godfrey ts the stomach. It can cause trouble swallowing. It can also cause food to get stuck in the esophagus. The cause of this condition is not known. Achalasia.This condition stops food and liquids from moving into your stomach from the esophagus. It affects the lower esophageal sphincter (LES). The LES is a muscular ring that opens (relaxes) when you swallow. With achalasia, the LES does not relax. This condition ca n also cause problems with peristalsis. This is the normal muscular action of the esophagus that moves food into the stomach. Eosinophilic esophagitis. This is a redness and swelling (inflammation) in the esophagus . It is caused by an environmental trigger such as a food allergy. It can lead to pain, trou ble swallowing, and strictures. Less common causes of stricture. Other causes of stricture include radiation treatment a nd cancer. Before you have esophageal dilation Tell your provider about any medicines you take. This includes prescription medicines, o lgl-uay-fjuhmzx medicines, herbs, vitamins, and other supplements. Be sure to mention aspiri n or any blood thinners you re taking. Let your provider know if you need to take antibiotics before dental procedures. You may need to take them beforeesophageal dilation as well. Tell your provider about any health conditions you have, such as heart or lung disease. Also mention any allergies to medicines. You ll need to have an empty stomach for the procedure. Follow your provider s instr uctions for not eating and drinking before the procedure. Arrange to have a family member or friend drive you home after the procedure. During the procedure You may be given local anesthesia to numb your throat. You ll also likely be given med icine to relax you. The procedure takes [id number]. It does not cause trouble breath ing. A tube called an endoscope (scope)is used. This is a narrow tube with a tiny light and camera at the end. The scope is inserted through your mouth and into your esophagus. It let s your provider see inside your esophagus. To help guide your provider, an imaging method ca lled fluoroscopy may also be used. This creates a moving X-ray image on a computer screen. Next, special tiny tools are carefully guided through your mouth and down into the esoph suly. Theywiden the stricture and are then removed. Different types of instruments are use d. The type used depends on the size and cause of the stricture. Types include: ? Balloon dilator.A tiny empty balloon is put into the stricture using an endoscope. The balloon is slowly filled with air. The air is removed from the balloon when the stricture is widened to the right size. Balloon dilators are used to treat many types of strictures. ? Guided wire dilator.A thin wire is eased down the esophagus. A small tube that s wide r on one end is guided down the wire. It is put into the stricture to stretch it. These dila tors are used to treat all kinds of strictures. ? Bougies.These are weighted, cone-shaped tubes. Starting with smaller cones, your provid er uses increasingly larger cones until the stricture is stretched the right amount. Bougies are often used to treat strictures that are simple (short, straight, and not very narrow). After the procedure You ll be watched closely until your provider says you re ready to go home. You ll need to have a friend or family member drive you home. You may have a sore throat for the rest of the day. You may have pain behind your breastbone for a short time afterwards. You can start drinking fluids again after the numbness in your throat goes away. You can resume eating thesame day or thenext day. Risks and possible complications Risks and possible complications for esophageal dilation include: Infection A tear or hole in the esophagus lining, causing bleeding and possibly needing surgery to fix Risks of anesthesia Follow-up You may need to have the procedure repeated one or more times. This depends on the cause an d extent of the narrowing. Repeat procedurescan allow the dilation to take place more slow ly. This reduces the risks of the procedure. If your stricture was caused by reflux esophagitis, you ll likely need to take medicine t o treat that condition. Your provider will tell you more. When to call your provider Call your healthcare provider right away if you have any of the following after the procedu re: Fever of 100.4F (38.0C) Chest pain Trouble swallowing Vomiting blood or material that looks like coffee grounds Bleeding Black, tarry, or bloodystools Date Last Reviewed: 04/26/201619997134-4939 [employer]. [address] [place] [address], [place] [address]. All righ ts reserved. This information is not intended as a substitute for professional medical care. Always follow your healthcare professional's instructions. Upper GI Endoscopy with Biopsy Upper GI endoscopy is a test that looks inside your upper GI (gastrointestinal) tract. This includes your food pipe (esophagus), stomach, and duodenum (the first part of your small in testine). The test is also known as EGD (esophagogastroduodenoscopy). It is done using a too l called an endoscope. This is a long, thin, flexible tube with a tiny camera at one end. Th e test helps find problems such as ulcers, infection, or growths.It can evaluate for jacquie c disease, gastritis, and esophagitis.During the test, tissue samples (biopsies) may be ta josh and studied for problems. With the aid of an endoscope, the doctor can view the inside of the upper GI tract and also take small tissue samples. Getting ready for your procedure Follow any instructions from your healthcare provider. Tell your healthcare provider about any medicines you are taking. You may need to stop taki ng all or some of these before the test. This includes: All prescription medicines Herbs, vitamins, and other supplements Mlqy-ofw-jiotzzx medicines such as aspirin or ibuprofen Street drugs Follow any directions you re given for not eating or drinking before the procedure. The day of the procedure The procedure takes about 20 minutes. You will go home the same day. Before the procedure begins: You may be given medicine to help you relax or sleep (sedation). This is given through an I V line placed in a vein in your arm or hand. Your throat may be numbed with a spray or liqui d. You will be given a small plastic guard to protect your teeth. During the procedure: You lie on your left side. The endoscope is placed in your mouth, and it moves down your throat. Air is used to expandyour GI tract so the lining can be seen more clearly. You may fee l pressure or mild pain from the air. The scope sends pictures of your GI tract to a computerscreen. The esophagus, stomach, and duodenum are viewed. Problems, such as bleeding, redness or swelling (inflammation), or growths may be seen. Using tools inserted through the endoscope, small samples of tissue can be taken. In some ca ses, small growths can be removed. The endoscope is then removed. After the procedure: The healthcare provider will talk with you afterward about the results. You ll rest until you can go home. Have an adult family member or friend drive you. Relax for the rest of the day. If you had a biopsy, the results will be ready in about 7 days. Recovering at home You ll likely feel drowsy after the test. A mild sore throat and mild gas and bloating ar e normal. Once home, follow any instructions you have been given. If you had sedation, do no t drive, operate machinery, or make major decisions until the next day. Call your healthcare provider if you have any of the following: Fever of 100.4F (38C) or higher, or as directed by your healthcare provider Chest pain Dark-colored stools Severe abdominal pain that doesn't go away when passing gas Sore throat that doesn t go away Trouble swallowing Vomiting, especially with blood Any other signs or symptoms indicated by your healthcare provider Follow-up If you had a biopsy, the results will be ready in about 7 days. Your healthcare provider wi ll talk with you about anymore testing or treatment that is needed. Risks and possible complications include: Sore throat or hoarseness Bloating Nausea Allergic reaction to the sedative or numbing medicine Bleeding during or after the procedure Too much bleeding from the biopsy site (if a biopsy is done) A hole or tear (perforation) in the lining of the digestive tract Inhaling food or fluid into the lungs (aspiration) Irregular heartbeat or cardiac arrest in someone with heart or lung disease Date Last Reviewed: 05/27/201719997212-2260 [employer]. [address] [place] [address]. All righ ts reserved. This information is not intended as a substitute for professional medical care. Always follow your healthcare professional's instructions. documented in this encounter Medications at Time of Discharge + + + +---------+ + + | Medication | Sig | Dispensed | Refills | Start | End Date | | | | | | Date | | + + + +---------+ + + | | Take 1 tablet by | | 0 | | | | acetaminophen-codein | mouth every 4 hours | | | | | | e (TYLENOL #2) | as needed for Pain. | | | | | | 300-15 MG per tablet | | | | | | + + + +---------+ + + | | acetaminophen 300 | | 0 | 06/16/20 | | | acetaminophen-codein | mg-codeine 30 mg | | | 18 | | | e (TYLENOL #3) | tablet Take 1 tablet | | | | | | 300-30 mg per tablet | every 6 hours by | | | | | | | oral route. not on | | | | | + + + +---------+ + + | | | | 0 | 11/26/19 | | | acetaminophen-codein | | | | 19 | | | e (TYLENOL #3) | | | | | | | 300-30 MG per tablet | | | | | | + + + +---------+ + + | | Take 1 tablet by | | 0 | | | | acetaminophen-codein | mouth every 4 hours | | | | | | e (TYLENOL #3) | as needed for Pain. | | | | | | 300-30 mg per tablet | | | | | | + + + +---------+ + + | allopurinol | Take 300 mg by mouth | | 0 | | | | (ZYLOPRIM) 300 mg | Daily. | | | | | | tablet | | | | | | + + + +---------+ + + | allopurinol | | | 0 | 09/08/20 | | | (ZYLOPRIM) 300 mg | | | | 18 | | | tablet | | | | | | + + + +---------+ + + | amoxicillin | | | 0 | 09/28/20 | | | (AMOXIL) 500 MG | | | | 18 | | | capsule | | | | | | + + + +---------+ + + | carvedilol (COREG) | TAKE ONE TABLET BY | | 0 | 02/03/20 | | | 12.5 mg tablet | MOUTH TWICE DAILY | | | 18 | | + + + +---------+ + + | carvedilol (COREG) | Take 6.25 mg by | | 0 | | | | 6.25 mg tablet | mouth 2 times daily | | | | | | | (with breakfast & | | | | | | | dinner). | | | | | + + + +---------+ + + | cephalexin | Take 500 mg by mouth | | 0 | | | | (KEFLEX) 500 mg | 2 times daily. | | | | | | capsule | | | | | | + + + +---------+ + + | cephalexin | | | 0 | 01/12/20 | | | (KEFLEX) 500 mg | | | | 19 | | | capsule | | | | | | + + + +---------+ + + | cephalexin | Take 1 capsule by | | 0 | // | | | (KEFLEX) 500 mg | mouth every eight | | | 19 | | | capsule | hours. Indications: | | | | | | | bone/joint infection | | | | | + + + +---------+ + + | cholecalciferol | Take 1,000 Units by | | 0 | | | | (VITAMIN D-3) 1000 | mouth Daily. | | | | | | units TABS | | | | | | + + + +---------+ + + | ciprofloxacin | | | 0 | 07/20/20 | | | (CIPRO) 250 mg | | | | 18 | | | tablet | | | | | | + + + +---------+ + + | docusate-senna | Take 1 tablet by | | 0 | 06/16/20 | | | (SENOKOT-S) 50-8.6 | mouth two times | | | 18 | | | mg per tablet | daily. | | | | | + + + +---------+ + + | eplerenone | Take 12.5 mg by | | 0 | 05/21/20 | | | (INSPRA) 25 mg | mouth once daily. | | | 17 | | | tablet | | | | | | + + + +---------+ + + | fish oil 1,000 mg | Take 1,200 mg by | | 0 | | | | capsule | mouth 2 times daily. | | | | | + + + +---------+ + + | folic acid | Take 400 mcg by | | 0 | | | | (FOLVITE) 400 MCG | mouth Daily. | | | | | | tablet | | | | | | + + + +---------+ + + | furosemide (LASIX) | Take 40 mg by mouth | | 0 | | | | 40 mg tablet | 2 times daily. | | | | | + + + +---------+ + + | glimepiride | Take 4 mg by mouth | | 0 | | | | (AMARYL) 4 mg tablet | every morning | | | | | | | (before breakfast). | | | | | + + + +---------+ + + | glipiZIDE | | | 0 | //20 | | | (GLUCOTROL) 10 MG | | | | 19 | | | tablet | | | | | | + + + +---------+ + + | glipiZIDE | | | 0 | 10/10/20 | | | (GLUCOTROL) 5 mg | | | | 18 | | | tablet | | | | | | + + + +---------+ + + | isosorbide | Take 60 mg by mouth | | 0 | | | | mononitrate (IMDUR) | Daily. | | | | | | 60 mg ER tablet | | | | | | + + + +---------+ + + | isosorbide | | | 0 | 07/25/20 | | | mononitrate 60 mg ER | | | | 18 | | | tablet | | | | | | + + + +---------+ + + | isosorbide | Take 1 tablet by | | 0 | 02/04/20 | | | mononitrate 60 mg ER | mouth daily. | | | 18 | | | tablet | | | | | | + + + +---------+ + + | losartan (COZAAR) | Take 50 mg by mouth | | 0 | | | | 50 mg tablet | Daily. | | | | | + + + +---------+ + + | losartan (COZAAR) | | | 0 | 09/08/20 | | | 50 mg tablet | | | | 18 | | + + + +---------+ + + | magnesium oxide | Take 400 mg by mouth | | 0 | | | | (MAG-OX) 400 mg | Daily. | | | | | | tablet | | | | | | + + + +---------+ + + | MEDROL 2 MG tablet | | | 0 | 01/29/20 | | | | | | | 19 | | + + + +---------+ + + | metFORMIN | Take 500 mg by mouth | | 0 | | | | (GLUCOPHAGE) 500 mg | Daily. | | | | | | tablet | | | | | | + + + +---------+ + + | methotrexate 2.5 | | | 0 | 12/01/19 | | | mg tablet | | | | 19 | | + + + +---------+ + + | methylPREDNISolone | Take 1 mg by mouth | | 0 | 01/29/20 | | | (MEDROL) 2 MG | daily. | | | 19 | | | tablet | | | | | | + + + +---------+ + + | methylPREDNISolone | | | 0 | 01/12/20 | | | (MEDROL) 4 mg | | | | 19 | | | tablet | | | | | | + + + +---------+ + + | metOLazone | Take 2.5 mg by mouth | | 0 | | | | (ZAROXOLYN) 2.5 mg | Daily. | | | | | | tablet | | | | | | + + + +---------+ + + | metoprolol | | | 0 | 02/01/20 | | | succinate | | | | 19 | | | (TOPROL-XL) 25 mg 24 | | | | | | | hr tablet | | | | | | + + + +---------+ + + | Multiple | Take 1 tablet by | | 0 | | | | Vitamins-Minerals | mouth Daily. | | | | | | (ADULT MULTIVITAMIN | | | | | | | WITH MINERALS/IRON) | | | | | | | TABS | | | | | | + + + +---------+ + + | nystatin | | | 0 | 09/29/20 | | | (MYCOSTATIN) 100,000 | | | | 18 | | | units/mL suspension | | | | | | + + + +---------+ + + | | Apply topically | | 0 | | | | nystatin-triamcinolo | Twice daily as | | | | | | ne (MYCOLOG II) | needed. | | | | | | ointment | | | | | | + + + +---------+ + + | omeprazole | | | 0 | 02/11/20 | | | (PRILOSEC) 20 mg | | | | 19 | | | capsule | | | | | | + + + +---------+ + + | potassium chloride | Take 20 mEq by mouth | | 0 | | | | (K-DUR) 20 mEq ER | 2 times daily. | | | | | | tablet | | | | | | + + + +---------+ + + | potassium chloride | | | 0 | 07/03/20 | | | (KLOR-CON) 10 mEq | | | | 18 | | | CR tablet | | | | | | + + + +---------+ + + | potassium chloride | | | 0 | 01/13/20 | | | (KLOR-CON) 10 MEQ | | | | 19 | | | ER tablet | | | | | | + + + +---------+ + + | potassium chloride | Take 10 mEq by mouth | | 0 | 11/19/19 | | | (KLOR-CON) 10 MEQ | daily. Pt is taking | | | 19 | | | ER tablet | 3 tablets daily. | | | | | + + + +---------+ + + | potassium chloride | | | 0 | 07/23/20 | | | 20 mEq CR tablet | | | | 18 | | + + + +---------+ + + | | | | 2 | 11/26/19 | | | promethazine-codeine | | | | 19 | | | (PHENERGAN WITH | | | | | | | CODEINE) 6.25-10 | | | | | | | mg/5 mL liquid | | | | | | + + + +---------+ + + | simvastatin | Take 40 mg by mouth | | 0 | | | | (ZOCOR) 40 mg tablet | nightly. | | | | | + + + +---------+ + + | torsemide | | | 0 | 12/19/19 | | | (DEMADEX) 20 mg | | | | 19 | | | tablet | | | | | | + + + +---------+ + + | torsemide | Take 1 tablet by | | 0 | 11/19/19 | | | (DEMADEX) 20 mg | mouth daily. | | | 19 | | | tablet | | | | | | + + + +---------+ + + | UNABLE TO FIND | | | 0 | 07/09/20 | | | | | | | 18 | | + + + +---------+ + + | UNABLE TO FIND | | | 0 | 07/16/20 | | | | | | | 18 | | + + + +---------+ + + | warfarin | Take 2.5 mg by mouth | | 0 | | | | (COUMADIN) 2.5 mg | Daily. | | | | | | tablet | | | | | | + + + +---------+ + + | warfarin | | | 0 | 02/01/20 | | | (COUMADIN) 2.5 mg | | | | 19 | | | tablet | | | | | | + + + +---------+ + + documented as of this encounter H&P Notes Willow Colin MD - 02/10/2019 12:59 PM PDTSURGICAL INTERIM HISTORY & PHYSICAL UPDATE Pt. Name/Age/: Duane Mas 78 y.o. 1940 Date of admission: 02/10/2019 The current H&P was reviewed. The patient was reexamined. Re-evaluation of the patient co nfirms the necessity for the scheduled procedure. No change has occurred in the patient s condition since the H&P was completed less than 30 days ago. VERIFICATION OF CONSENT (PARQ) The patient counseled regarding the procedure, its indications, risks, potential complicati ons and alternatives. Any questions were answered. Consent was obtained. Electronically signed by: Willow Colin MD, 02/10/2019 13:00 [facility] Willow Colin MD at 02/10 1:00 PM PDTdocumented in this encounter Miscellaneous Notes Op Note - Willow Colin MD - 02/10/2019 1:19 PM PDT PROCEDURE NOTE PATIENT: Duane Mas DATE OF : 1940 DATE OF PROCEDURE: 02/10/19 PROCEDURE PERFORMED: EGD with savory dilation And biopsy INDICATION: dysphagia ENDOSCOPIST: Cristi Thompson MD ANESTHESIA provided by Dr. Gilbert Sarmiento DESCRIPTION OF PROCEDURE: After the risks, benefits and alternatives of the procedure were thoroughly explained, info rmed consent was obtained. The Olympus upper endoscope was introduced through the oropharyn x, and advanced to the descending duodenum. The instrument was then slowly withdrawn as t he mucosa was fully examined. 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 LA Grade A Esophagitis. Z line was seen at 41 cm. T Multiple erosion in gastric body. Bi opsies were obtained from gastric body and antrum for H. pylori. Retroflexion shows normal view of the fundus and cardia. The duodenal bulb and descending duodenum appear normal. A 54 FR savory dilator was passed COMPLICATIONS: None. DIAGNOSTIC IMPRESSION: 1. 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 Gastric erosion 3. S/p savory dilation RECOMMENDATIONS: Omeprazole 20mg once a day Call Dr. Colin's office if you develop increasing abdominal pain, fever, or vomiting of bloo d after the procedure. REPEAT EXAM: if patient has recurrence of dysphagia CC: Dakota Estrada documented in this enc ounter Plan of Treatment +--------+ + + + [...] | + +--------+ + + + | EGD | | 02/10/2019 | Dysphagia, | | | | | 1:20 PM | unspecified type | | | | | PDT | Pacemaker | | + +--------+ + + + | POCT FINGERSTICK INR | STAT | 02/10/2019 | | Results for this | | | | 1:10 PM | | procedure are in the | | | | PDT | | results section. | + +--------+ + + + | POC GLUCOSE | Routin | 02/10/2019 | | Results for this | | | e | 12:46 PM | | procedure are in the | | | | PDT | | results section. | + +--------+ + + + | SURGICAL PATHOLOGY | Routin | 02/10/2019 | | Results for this | | EXAM | e | 12:00 AM | | procedure are in the | | | | PDT | | results section. | + +--------+ + + + documented in this encounter Results POC Fingerstick INR (02/10/2019 1:10 PM PDT) + + + + + + | Component | Value | Ref Range | Performed | Pathologist | | | | | At | Signature | + + + + + + | INR, POC | 1.5 (A)Comment: Raciel Mccurdy | 0.9 - 1.2 | [facility] | | | | notified of result. | | [facility] | | | | | | CORE | | | | | | LABORATORY | | + + + + + + | Instrument | | | [facility] | | | ID | | | [facility] | | | | | | CORE | | | | | | LABORATORY | | + + + + + + + + | Specimen | + + | Blood | + + + + + + + | Performing | Address | City/State/Zipcode | Phone Number | | Organization | | | | + + + + + | [facility] | [address] | [place] [address] | [phone] | | [facility] | | | | | LABORATORY | | | | + + + + + POC Glucose (02/10/2019 12:46 PM PDT) + +---------+ + + + | Component | Value | Ref Range | Performed | Pathologist | | | | | At | Signature | + +---------+ + + + | Glucose, | 196 (H) | 70 - 109 mg/dL | [facility] | [facility] | [facility] - | | | | | | LABORATORY | | + +---------+ + + + + + | Specimen | + + | Blood | + + + + + + + | Performing | Address | City/State/Zipcode | Phone Number | | Organization | | | | + + + + + | [facility] | [address] | [place] | [phone] | | [facility] | | [address] | | | - LABORATORY | | | | + + + + + Surgical Pathology Exam (02/10/2019 12:00 AM PDT) + + | Specimen | + + | | + + + + + | Narrative | Performed At | + + + | SPECIMEN(S): A GASTRIC BIOPSY SPECIMEN SOURCE: A. GASTRIC | [facility] | | BIOPSY CLINICAL HISTORY: R13.10 (dysphagia, unspecified). | [facility] | | MICROSCOPIC DESCRIPTION: Histologic sections of all submitted blocks | | | are examined by light microscopy. These findings, together with the | | | gross examination, support the pathologic diagnosis. 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 - Proton pump inhibitor effect suggestive of early | | | fundic gland polyps. - Negative for H. pylori on HE stain. | | | SWC:glc:C2NR GROSS DESCRIPTION: The specimen is received in | | | formalin, labeled and designated "Chace, gastric biopsy," and consists | | | of two fragments of oh soft tissue, both 0.6 cm and submitted | | | entirely in (A1). nz:NEFTALI:serafin PERFORMING LABORATORY: The | | | technical and professional components were performed by [email or web address] | | | [employer], [address] [place] [address] | | | (Underwater Hunter: Don Morrell D.O.; [facility]#: [id number]). | | | Diagnostician: Gely Cerna MD Pathologist Electronically | | | Signed 02/12/2019 | | + + + + +---------+ + + | Performing | Address | City/State/Zipcode | Phone Number | | Organization | | | | + +---------+ + + | [facility] | | | | | [facility] | | | | + +---------+ + + documented in this encounter Visit Diagnoses + + | Diagnosis | + + | Dysphagia, unspecified type | + + | Pacemaker Cardiac pacemaker in situ | + + documented in this encounter Administered Medications + +--------+---------+------+------+------+ | Medication Order | MAR | Action | Dose | Rate | Site | | | Action | Date | | | | + +--------+---------+------+------+------+ + +---+ | albuterol 2.5 mg/3 mL nebulizer | | | solution 2.5 mg 2.5 mg, | | | Nebulization, ONCE PRN, Wheezing, | | | Starting Fri02/10/19 at 1342, | | | For 1 dose, Notify anesthesia if | | | patient is wheezing and does not | | | have a history of asthma or COPD | | | or current smoking., | | | Recovery/Phase I | | + +---+ | | | + +---+ | albuterol 2.5 mg/3 mL nebulizer | | | solution 2.5 mg 2.5 mg, | | | Nebulization, ONCE PRN, Wheezing, | | | Starting Fri02/10/19 at 1342, | | | For 1 dose, Notify anesthesia if | | | patient is wheezing and does not | | | have a history of asthma or COPD | | | or current smoking., | | | Recovery/Phase I | | + +---+ | | | + +---+ | albuterol-ipratropium 2.5-0.5 | | | mg/3 mL nebulizer solution 3 mL | | | 3 mL, Nebulization, ONCE PRN, | | | Wheezing, Shortness of Breath, | | | Starting Fri02/10/19 at 1342, For | | | 1 dose, Recovery/Phase I | | + +---+ | | | + +---+ + +-------+ +---------+---+---+ | benzocaine (HURRICAINE) 20% | Given | 02/11/20 | 1 spray | | | | non-aerosol spray PRN, Starting | | 19 1:23 | | | | | Fri02/10/19 at 1323 | | PM PDT | | | | + +-------+ +---------+---+---+ + +---+ | | | + +---+ | dextrose 50% injection 12.5-25 | | | g 12.5-25 g, Intravenous, EVERY | | | 15 MIN PRN, Low Blood Sugar, For | | | hypoglycemia. Give 12.5g (25ml) | | | IV if blood glucose 50-69 | | | mg/dL. Give 25g (50ml) IV if | | | blood glucose < 50, Starting Wed | | | 02/10/19 at 1342, Give over 2 min. | | | Repeat in 15 min if blood | | | glucose remains < 70 mg/dL. | | | Repeat blood glucose in 30 min | | | once blood glucose > 70., | | | Recovery/Phase I | | + +---+ | | | + +---+ | ePHEDrine 50 mg/mL injection 5 | | | mg 5 mg, Intravenous, EVERY 5 | | | MIN PRN, if SBP <90., Starting | | | 02/10/19 at 1342, Hold if HR > | | | 100. Maximum total dose 20mg., | | | Recovery/Phase I | | + +---+ | | | + +---+ | fentaNYL (PF) injection 25-50 | | | mcg 25-50 mcg, Intravenous, | | | EVERY 5 MIN PRN, Pain, Starting | | | Fri02/10/19 at 1342, Maximum | | | total dose 250 mcg. PACU IV | | | Narcotic Priority: Only use | | | fentanyl for immediate post-op | | | pain (one dose) or breakthrough | | | pain when any other IV narcotics | | | ordered have been ineffective (if | | | ordered). If both morphine and | | | hydromorphone are ordered, use | | | morphine first, and use | | | hydromorphone if morphine | | | ineffective., Recovery/Phase I | | + +---+ | | | + +---+ + +---------+ +---+---+---+ | lactated ringers (LR) infusion | New Bag | 02/11/20 | | | | | at 100 mL/hr, Intravenous, | | 19 1:08 | | | | | CONTINUOUS, Starting Fri02/10/19 | | PM PDT | | | | | at 1300, Pre-op | | | | | | + +---------+ +---+---+---+ + +---+ | | | + +---+ | metoclopramide (REGLAN) 5 mg/mL | | | injection 10 mg 10 mg, | | | Intravenous, ONCE PRN, Nausea, | | | Vomiting, Starting 02/10/19 at | | | 1342, For 1 dose, Protect from | | | light., Recovery/Phase I | | + +---+ | | | + +---+ | ondansetron (ZOFRAN) injection | | | 4 mg 4 mg, Intravenous, ONCE | | | PRN, Nausea, Starting 02/10/19 | | | at 1342, For 1 dose, | | | Recovery/Phase I | | + +---+ | | | + +---+ | ondansetron (ZOFRAN) injection | | | 4 mg 4 mg, Intravenous, ONCE | | | PRN, Nausea, Starting 02/10/19 | | | at 1342, For 1 dose, | | | Recovery/Phase I | | + +---+ | | | + +---+ | promethazine (PHENERGAN) (IV | | | ONLY) injection 6.25 mg 6.25 mg, | | | Intravenous, EVERY 15 MIN PRN, | | | Nausea, Vomiting, Starting Wed | | | 02/10/19 at 1342, For 4 doses, | | | TAKE PRECAUTIONS WHEN | | | ADMINISTERING Dilute to 10-20mL | | | with NS. Give over 2-3 minutes | | | into large vein. Use ondansetron | | | first if both are ordered., | | | Recovery/Phase I | | + +---+ | | | + +---+ documented in this encounter
--- OUTSIDE RECORDS SUMMARY | ~2020-06-30 | XMS | Encounter Summary ---
Demographics + + + | Address | [address] | | | [place] [address] | + + + | Home Phone | | + + + | Preferred Language | Unknown | + + + | Marital Status | Unknown | + + + | Congregational Affiliation | PRO | + + + | Race | White | + + + | Ethnic Group | Not or | + + + Author + + + | Author | [facility] | + + + | Organization | [facility] | + + + | Address | Unknown | + + + | Phone | Unavailable | + + + Support + + +---------+ + | Name | Relationship | Address | Phone | + + +---------+ + | Beth Mas | ECON | Unknown | | + + +---------+ + Care Team Providers + +------+ + | Care Erp Pm Name | Role | Phone | + [...] P[address] | | | | | [address] | [address] | | | | | Loop Physician[address] | [place], [place] | | | | | [place], [facility] floor | [address] | | | | | [place], [place] | [phone] | | | | | [address] | | | | | | [phone] | | | +--------+ + + + [...]
--- OUTSIDE RECORDS SUMMARY | ~2020-06-30 | XMS | Encounter Summary ---
Demographics + + + | Address | [address] | | | [place] [address] | + + + | Home Phone | | + + + | Preferred Language | Unknown | + + + | Marital Status | Unknown | + + + | Yarsani Affiliation | PRO | + + + [...] Team Providers + +------+ + | Care Dental Ceramist Assistant Name | Role | Phone | + +------+ + | Gilberto Estrada MD | PCP | | + +------+ + Reason for Visit +---------+ + | Reason | Comments | +---------+ + | Post Op | Right knee arthotomy with drainage for infection and polyethylene | | | exchange | +---------+ + Encounter Details +--------+---------+ + + + | Date | Type | Department | Care Team | Description | +--------+---------+ + + + | 08/18/ | Office | Orthopaedics at | Ghassan Sherman, | Right knee pain, | | 2018 | Visit | [facility] [address] | MD [address] | unspecified | | | | [address] | [place], [place] | chronicity (Primary | | | | [address] | [address] | Dx) | | | | [place], [place] | [phone] | | | | | [address] | | | | | | [phone] | | | +--------+---------+ + + + [...] + + + | Blood Pressure | - | - | | + + + + + | Pulse | - | - | | + + + + + | Temperature | - | - | | + + + + + | Respiratory Rate | - | - | | + + + + + | Oxygen Saturation | - | - | | + + + + + | Inhaled Oxygen | - | - | | | Concentration | | | | + + + + + | Weight | 83 kg (183 lb) | 08/18/2018 3:20 PM | | | | | PDT | | + + + + + | Height | 172.7 cm (5' 8") | 08/18/2018 3:20 PM | | | | | PDT | | + + + + + | Body Mass Index | 27.83 | 08/18/2018 3:20 PM | | | [...] documented as of this encounter Progress Notes Veronica Ortega MD - 08/18/2018 4:05 PM PDTFormatting of this note might be different fr om the original. [facility] Orthopaedic Trauma Clinic Today's date: 08/18/18 Date of Surgery: 06/12/2018 Surgery performed: Right knee irrigation and debridement with poly exchange S:Mr. Duane Mas is a 78 year old male. he is now 2 month (s) since the aforementioned s urgery. Currently he is WBAT. Pain management consists of none. Patient states pain is 0 ou t of 10. He denies any pain at the knee. His IV antibiotics were discontinued approximately 2 weeks ago at 6 weeks postop. He is now on keflex. He reports that he has quit smoking. He has never used smokeless tobacco. Controlled Medications - Schedule II and III Medication Sig Dispense Refill OrderDate EndDate acetaminophen-codeine 300-30 mg oral tablet Take 1 tablet by mouth every six hours as n eeded for severe pain. 30 tablet 0 06/16/2018 ROS: he is not complaining of any syncope, chest pain, SOB, abdominal pain, nausea, bowel or bladder issues. O: Vitals: Ht 1.727 m (5' 8") | Wt 83 kg (183 lb) | BMI 27.83 kg/(m^2) General- Awake & alert male; No acute distress; Alert & oriented to person/place/time; Appr opriate pleasant affect Gait-normal RLE: knee ROM 0-110, incision well healed with small eschar at proximal most extent of inci zoe, no erythema XRAYS: My independent review of images shows intact total knee without lucency ASSESSMENT: Right knee pain, unspecified chronicity (primary encounter diagnosis) PLAN: Agree with continue abx suppression per ID. He can continue activity as tolerated. Di scussed signs and symptoms of recurrent infection. 1. Activity: As tolerated 2. Medication changes: None 3. F/U: As needed 4. Repeat pre clinic x-rays: None VERONICA ORTEGA MD I have seen the patient and performed and independent history and physical exam. I discuss ed the diagnosis, imaging studies, treatment plan and prognosis with the patient and residen t. I have reviewed and edited the above note and agree with the plan as listed. GHASSAN SHERMAN MD ORTHOPAEDICS AT [address] [place] [id number] Orders Placed This Encounter X-RAY KNEE 2 VIEWS RIGHT documented in this en counter Plan of Treatment Not on filedocumented as of this encounter Results X-RAY KNEE 2 VIEWS [...] Regan MD Dictation initiated: Song | | Skye Regan MD 08/18/2018 3:18 PM | | + + [...] unspecified chronicity - Primary | + + documented in this encounter
--- OUTSIDE RECORDS SUMMARY | ~2020-06-30 | XMS | Encounter Summary ---
Demographics + + + | Address | [address] | | | [place] [address] | + + + | Home Phone [...] + + + | Author | [facility] | + + + | Organization | [facility] | + + + | Address | Unknown | + + + | Phone | Unavailable | + + + Support + + +---------+ + | Name | Relationship | Address | Phone | + + +---------+ + | Beth Mas | ECON | Unknown | | + + +---------+ + Care Team Providers + +------+ + | Care Fall Intern Name | Role | Phone | + [...] | | | | and | | [address] | | | | | inflammatory | | [address] | | | | | reaction | | [address] [place], | | | | | due to | | [place] | | | | | internal | | [address] | | | | | right knee | | Phone: | | | | | prosthesis, | | [phone] | | | | | initial | | Fax: | | | | | encounter | | [phone] | +--------+--------+ + + + + Encounter [...] | | | | Loop Phys[facility] | [facility] [place] | subsequent encounter | | | | [place], 3rd floor | [address] | (Primary Dx); Long | | | | [place], [place] | [phone] | term (current) use | | | | [address] | | of antibiotics | | | | [phone] | | | +--------+---------+ + + + [...] he was briefly hospitalized since discharge from [facility] for ALVINO. Cr now back at prev [...] mouth once daily., Disp: , Rfl: antiox. 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
--- OUTSIDE RECORDS SUMMARY | ~2020-06-30 | XMS | Encounter Summary ---
Demographics + + + | Address | [address] | | | [place] [address] | + + + | Home Phone [...] Team Providers + +------+ + | Care Hammerer Helper Name | Role | Phone | + +------+ + | Erin Forrester MD | PCP | | + +------+ + Encounter Details +--------+ + + + + | Date | Type | Department | Care Team | Description | +--------+ + + + + | 03/08/ | Orders Only | [facility] | Conversion | | | 2019 | | NEPHROLOGY [place] | Transaction, | | | | | [address] | Provider Unknown | | | | | [address] | [phone] | | | | | [address] | | | | | | [phone] | | | +--------+ + + + [...]
--- OUTSIDE RECORDS SUMMARY | ~2020-06-30 | XMS | Encounter Summary ---
Demographics + + + | Address | [address] | | | [place] [address] | + + + | Home Phone [...] Team Providers + +------+ + | Care Underwriting Support Specialist Name | Role | Phone | [...] | 2018 | | P[address]I [address] | [address] | POSSIBLE COMPONENT | | | | Rd [facility] Main | [facility] [place] | EXCHANGE, POSSIBLE | | | | Hospital Admitting | [address] | REVISION | | | | Desk Located on the | [phone] | | | | | 9th floor | | | | | | [place], [place] | | | | | | [address] | | | +--------+---------+ + + + [...] | | 0 | | | | [id number] | mouth once daily. | | | [...] Leon who advised PT to come to [facility] ED. Advised Dr. Yen to [...]
--- OUTSIDE RECORDS SUMMARY | ~2020-06-30 | XMS | Encounter Summary ---
Demographics + + + | Address | [address] | | | [place] [address] | + + + | Home Phone | | + + + | Preferred Language | Unknown | + + + | Marital Status | Unknown | + + + | Caodaism Affiliation | PRO | + + + [...] Team Providers + +------+ + | Care Oil And Gas Specialist Name | Role | Phone | [...] | | | | Loop Physician's | [place], [place] | | | | | [place], [facility] floor | [address] | | | | | [place], [place] | [phone] | | | | | [address] | | | | | | [phone] | | | +--------+--------+ + + + [...]
--- OUTSIDE RECORDS SUMMARY | ~2020-06-30 | XMS | Encounter Summary ---
Demographics + + + | Address | [address] | | | [place] [address] | + + + | Home Phone [...] Author | [facility] | + + + | Organization | [facility] | + + + | Address | Unknown | + + + | Phone | Unavailable | + + + Support + + +---------+ + | Name | Relationship | Address | Phone | + + +---------+ + | Beth Mas | ECON | Unknown | | + + +---------+ + Care Team Providers + +------+ + | Care Merchant Mariner Name | Role | Phone | + [...] | | | | [address] | [place], [place] | chronicity (Primary | | | | [address] | [address] | Dx); Infection | | | | [place], [place] | [phone] | associated with | | | | [address] | | internal right knee | | | | [phone] | | prosthesis, | | | | [...] Ghassan Sherman MD - 07/14/2018 1:25 PM [facility] Orthopaedic Trauma Clinic 06/12/18 Right TKA [...] tknee ap/laterall GHASSAN SHERMAN MD ORTHOPAEDICS AT [place] [address] [address] [place] [address] No orders of the defined [...]
--- OUTSIDE RECORDS SUMMARY | ~2020-06-30 | XMS | Encounter Summary ---
Demographics + + + | Address | [address] | | | [place] [address] | + + + | Home Phone [...] Team Providers + +------+ + | Care Volunteer Firefighter Name | Role | Phone | + +------+ + | Erin Forrester MD | PCP | | + +------+ + Encounter Details +--------+ + + + + | Date | Type | Department | Care Team | Description | +--------+ + + + + | 10/09/ | Orders Only | [facility] | Robel Ricci | | | 2014 | | CARDIOLOGY [facility] | [address] | | | | | [place] [address] | [address] | | | | | [place] [address] | [place] [address] | | | | | [address] | [phone] | | | | | [phone] | | | +--------+ + + + [...] | with evidence of 1-49% stenosis. Right FLIGHT TEST DATA ACQUISITION TECHNICIAN: The right common femoral | | | [...] patent with evidence of 1-49% stenosis. Left FLIGHT TEST DATA ACQUISITION TECHNICIAN: | | | The left common femoral [...] GOPAL PS: 82.62 cm/s | | | FLIGHT TEST DATA ACQUISITION TECHNICIAN AC: 28 deg FLIGHT TEST DATA ACQUISITION TECHNICIAN AC: 39 deg FLIGHT TEST DATA ACQUISITION TECHNICIAN PS: 82.56 cm/s FLIGHT TEST DATA ACQUISITION TECHNICIAN PS: | | | 91.14 cm/s NADIYA [...] | | cm/s Pop PS: 66.08 cm/s ROTOPRINTER AC: 60 deg ROTOPRINTER AC: 54 deg | | | ROTOPRINTER PS: 104.11 cm/s ROTOPRINTER PS: 70.22 cm/s SFA AC: 60 deg [...] AO | | | mid-dist: 1.83 cm Office Manager Receptionist: MANDEEP Authenticated by: | | | Betina Falk MD Report Date/Time: -- | | | [id number]:26 | | + + + + + [...] with evidence of 1-49% | | stenosis.Right FLIGHT TEST DATA ACQUISITION TECHNICIAN: The right common femoral artery is patent [...] patent with evidence of 1-49% stenosis. Left FLIGHT TEST DATA ACQUISITION TECHNICIAN: The | | left common femoral artery [...] cm/Ricco dist: 83.77 cm/Ricco dist: 1.48 cmLt. NADIYA: 1.24 cmAO prox: 2.51 cmRt. NADIYA: | | 0.92 cmAO mid-dist: 1.83 cm Office Manager Receptionist: FEMIuthenticated by: Betina Falk | | MDReport Date/Time: -- [id number]:45:26 IMPRESSION: 1. This was a technically | [...] medial calcification of the trifurcation vessels. | |FLIGHT TEST DATA ACQUISITION TECHNICIAN AC: 39 deg | |FLIGHT TEST DATA ACQUISITION TECHNICIAN PS: 82.56 cm/s | |FLIGHT TEST DATA ACQUISITION TECHNICIAN PS: 91.14 cm/s | |NADIYA AC: 60 [...] cm/s | |Pop PS: 66.08 cm/s | |ROTOPRINTER AC: 60 deg | |ROTOPRINTER AC: 54 deg | |ROTOPRINTER PS: 104.11 cm/s | |ROTOPRINTER PS: 70.22 cm/s | |SFA AC: 60 [...] |AO mid-dist: 1.83 cm | | | |Office Manager Receptionist: MANDEEP | |Authenticated by: Betina Falk MD | |Report Date/Time: -- [id number]:45:26 | | | |IMPRESSION: | |1. This [...]
--- OUTSIDE RECORDS SUMMARY | ~2020-06-30 | XMS | Encounter Summary ---
Demographics + + + | Address | [address] | | | [place] [address] | + + + | Home Phone [...] + + | Author | [facility] | + + + | Organization | [facility] | + + + | Address | Unknown | + + + | Phone | Unavailable | + + + Support + + +---------+ + | Name | Relationship | Address | Phone | + + +---------+ + | Beth Mas | ECON | Unknown | | + + +---------+ + Care Team Providers + +------+ + | Care Acid Loader Name | Role | Phone | [...] | | | | | [address] [facility] | | | | | | [place] | | | | | | [address] | | | | | | | [...] | DERMATOPATH | | | MNT) | [address] CLINICAL | | OLOGY | | | [...] | + + + + + | [facility] DEPARTMENT | [address] | [place] [address] | | | PATHOLOGY | [address] | | | + + + + + | [facility] | [address] | [place] [address] | | | DERMATOPATHOLOGY | [address] | | | + + + + + documented in this encounter Visit Diagnoses Not on filedocumented in this encounter"
--- OUTSIDE RECORDS SUMMARY | ~2020-06-30 | XMS | Encounter Summary ---
Demographics + + + | Address | [address] | | | [place] [address] | + + + | Home Phone [...] + + + | Author | [facility] | | | and [place] | + + + | Organization | [facility] | | [...] Team Providers + +------+ + | Care Rope Cutter Name | Role | Phone | + [...] Provider Unknown | | | | | [place] | | | | | | [address] | (Fax) | | | | | [phone] | | | +--------+ + + + [...]
--- OUTSIDE RECORDS SUMMARY | ~2020-06-30 | XMS | Encounter Summary ---
Demographics + + + | Address | [address] | | | [place] [address] | + + + | Home Phone [...] Author + + + | Author | [facility] | + + + | Organization | [facility] | + + + | Address | Unknown | + + + | Phone | Unavailable | + + + Support + + +---------+ + | Name | Relationship | Address | Phone | + + +---------+ + | Beth Mas | ECON | Unknown | | + + +---------+ + Care Team Providers + +------+ + | Care Small Lot Operator Name | Role | Phone | + +------+ + | Gilberto Estrada MD | PCP | | + +------+ + Encounter Details +--------+ + + + + | Date | Type | Department | Care Team | Description | +--------+ + + + + | 06/11/ | Emergency | [facility] Emergency | [place], | | | 2017 | | Department [address] | [address] | | | | | [address] | [place], [place] | | | | | [facility] | [address] | | | | | [place], [place] | [phone] | | | | | [address] | | | | | | [phone] | | | +--------+ + + + [...] | | 0 | | | | [id number] | mouth once daily. | | | [...] Leon who advised PT to come to [facility] ED. Advised Dr. Yen to call ED [...]
--- OUTSIDE RECORDS SUMMARY | ~2020-06-30 | XMS | Encounter Summary ---
Demographics + + + | Address | [address] | | | [place] [address] | + + + | Home Phone | | + + + | Preferred Language | Unknown | + + + | Marital Status | | + + + | Mandaeism Affiliation | [id number] | + + + [...] Team Providers + +------+ + | Care Top Case Assembler Name | Role | Phone | + +------+ + | Erin Forrester MD | PCP | | + +------+ + Encounter Details +--------+ + + + + | Date | Type | Department | Care Team | Description | +--------+ + + + + | 06/08/ | Orders Only | [facility] | Conversion | | | 2019 | | NEPRHOLOGY [place] | Transaction, | | | | | [address] | Provider Unknown | | | | | [address] [place] | [phone] | | | | | [address] | | | | | | [phone] | | | +--------+ + + + [...] | | | LAB | | | Cuban | | | | | + + [...]
--- OUTSIDE RECORDS SUMMARY | ~2020-06-30 | XMS | Encounter Summary ---
Demographics + + + | Address | [address] | | | [place] [address] | + + + | Home Phone [...] Providers + +------+ + | Care Warehouse Driver Name | Role | Phone | + +------+ + | Gilberto Estrada MD | PCP | | + +------+ + Encounter Details +--------+ + + + + | Date | Type | Department | Care Team | Description | +--------+ + + + + | 08/18/ | Hospital | Radiology/Imaging | Sandoval Hyde, | | | 2017 | Encounter | at [facility] | [address] | | | | | [address] | [place], [place] | | | | | [facility] [address] | [address] | | | | | [place], [place] | [phone] | | | | | [address] | | | | | | [phone] | | | +--------+ + + + [...] | | 0 | | | | [id number] | mouth once daily. | | | [...]
--- OUTSIDE RECORDS SUMMARY | ~2020-06-30 | XMS | Encounter Summary ---
Demographics + + + | Address | [address] | | | [place] [address] | + + + | Home Phone | | + + + | Preferred Language | Unknown | + + + | Marital Status | | + + + | Scientologist Affiliation | [id number] | + + + [...] Providers + +------+ + | Care Sports Book Board Attendant Name | Role | Phone | + +------+ + PCP | Unavailable | + +------+ + Encounter Details +--------+ + + + + | Date | Type | Department | Care Team | Description | +--------+ + + + + | 09/07/ | Hospital | [facility] | Drew Hurst | | | 2012 - | Encounter | [facility] [address] | [address] | | | | | [address] | [address] | | | 09/09/ | | [facility] | [address] [address] | | | 2012 | | [address] | [phone] | | | | | [phone] | | | +--------+ + + + [...] Summaries by Drew Hurst MD at 09/09/13 1036 Author: Drew Hurst MD Service: Orthopedic Surgery Author Type: Physician Filed: 09/09/13 0941 Date of Service: 09/09/13 0939 Status: Signed Steam Shovelman: Drew Hurst MD (Physician) [facility] Service: Orthopedic Surgery Discharge Summary Date of [...] - TOTAL; Surgeon: Drew Hurst MD; Location: [facility] MAIN OR; Servic e: Orthopedics; [...] 7-10 days with Drew Hurst MD (assistant manager quality management Alison Tompkins) [facility] [address] [place] [phone] . 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 All discharge instructions to includ e medications and appointments reviewed with patient and his . Prescriptions given to wi fe. PIV removed, catheter intact, bandage applied. All questions answered. onver zoe Transaction, Provider Unknown - 09/09/2013 11:37 AM PST Case Management by Rita Borja RN at 09/09/13 556 Author: Rita Borja RN Service: (none) Author Type: Registered Nurse Filed: 09/09/13 1138 Date of Service: 09/09/131136 Status: Signed Steam Shovelman: Rita Borja RN (Registered Nurse) HEMANT Iqbal [...] Date of Service: 09/09/13 1032 Status: Signed Steam Shovelman: Marta Lopez RN (Registered Nurse) CHF education completed with patient and his , packet given to patient. All questions a nswered onver zoe Transaction, Provider Unknown - 09/09/2013 10:10 AM PST Progress Notes by Shayla Hennessy LPN at 09/09/13 1010 Author: Shayla Hennessy LPN Service: (none) Author Type: Registered Nurse Filed: 09/09/13 1010 Date of Service: 09/09/13 1010 Status: Signed Steam Shovelman: Shayla Hennessy LPN (Registered Nurse) Visited with pt this am regarding warfarin education. [facility]. Pt has no questions regarding warfarin at this time. onver zoe Transaction, Provider Unknown - 09/09/2013 9:55 AM PST Progress Notes by Irina Cooley PTA at 09/09/13 0955 Author: Irina Cooley PTA Service: (none) Author Type: Vice Investigator Filed: 09/09/13 1310 Date of Service: 09/09/13 0955 Status: Signed Steam Shovelman: Irina Cooley PTA (Vice Investigator) 09/09/13 0955 PT Last Visit PT Received [...] 09/09/13938 Date of Service: 09/09/13937 Status: Signed Steam Shovelman: Drew Hurst MD (Physician) Subjective: Post-Operative Day: [...] Will get INR checked on Friday in [place]. DREW HURST MD 09/09/2013 9:38 AM onversio n Transaction, Provider Unknown - 09/08/2013 1:16 PM PSTFormatting of this note might be di fferent from the original. Progress Notes by Ale Yee RD, CDE at 09/08/13 1316 Author: Ale Yee RD, VEDA Service: (none) Author Type: Supervisor Metal Furniture Fabrication Filed: 09/08/13 2110 Date of Service: 09/08/131315 Status: Signed Steam Shovelman: Ale Yee RD, CDE (Supervisor Metal Furniture Fabrication) Met with pt and spouse. Reports he [...] and metformin. Ale Yee RD, MPH, CDE, Supervisor Metal Furniture Fabrication 09/08/2013 1:39 PM onver zoe Transaction, Provider Unknown - 09/08/2013 12:35 PM PST Progress Notes by Mireya Hoyos PT at 09/08/13 1235 Author: Mireya Hoyos PT Service: (none) Author Type: Physical Therapist Filed: 09/08/13 1410 Date of Service: 09/08/13 1235 Status: Signed Steam Shovelman: Mireya Hoyos PT (Physical Therapist) 09/08/13 1235 PT Last Visit PT Received On 09/08/13 Reason for Treatment Knee replacement Requires PT Follow Up Yes Follow up PT Only? No Assistance Required 1 person Office Inspector Needed No Precautions LE Precaution(s) RLE (WBAT [...] exercise: Marching, LAQ, Heel raises, Glut squeezes: [id number] Standing exercise: Marching, Hip Abd, Hip ext: [id number] Patients actively encouraged each other throughout activities [...] Orthopedic Surgery Author Type: Physician Filed: 09/08/13 1145 Date of Service: 09/08/13 1143 Status: Signed Steam Shovelman: Drew Hurst MD (Physician) Subjective: Post-Operative Day: [...] Author: ABBIE Delgado Service: (none) Author Type: Costuming Supervisor Filed: 09/08/1347 Date of Service: 09/08/13845 Status: Signed Steam Shovelman: ABBIE Delgado (Costuming Supervisor) CM met with pt for discharge planning. Pt is 73 years old and lives with his in a 2-le alan home with a ramp at the main entrance. Pt has a [id number]. Pt owns a walker. Pt's w mike will assist with his daily living activities including personal hygiene, grooming, dress ing, feeding, cooking, transportation and ambulation. Pt had no resource concerns at this ti me. CM will continue to follow as needed. Discharge Plan: Home. Eric Sanabria CLINICAL APPLICATION CONSULTANT 09/08/13 0846 Discharge Planning Evaluation Admitting Diagnosis [...] Notes by Mireya Hoyos PT at 09/08/13 0836 Author: Mireya Hoyos PT Service: (none) Author Type: Physical Therapist Filed: 09/08/13 3886 Date of Service: 09/08/13 0875 Status: Signed Steam Shovelman: Mireya Hoyos PT (Physical Therapist) 09/08/13 0846 PT Last Visit PT Received On 09/08/13 Reason for Treatment Knee replacement Requires PT Follow Up Yes Follow up PT Only? No Assistance Required 1 person Office Inspector Needed No Precautions LE Precaution(s) RLE (WBAT [...] 09/07/132032 Date of Service: 09/07/132030 Status: Signed Steam Shovelman: Jeimy Ayala RN (Registered Nurse) Spoke with [...] 161 Date of Service: 09/07/131610 Status: Signed Steam Shovelman: ILSA Walalce (Occupational Therapist) 09/07/13 1343 Plan Requires OT Follow Up Unavailable (Pt with PT ) Pt unavailable upon OT arrival. Plan to re-attempt evaluation/treatment as census permits ILSA Wallace 09/07/2013 onver zoe Transaction, Provider Unknown - 09/07/2013 1:25 PM PST Progress Notes by Gilberto Carl, PT at 09/07/13 1325 Author: Gilberto Carl PT Service: (none) Author Type: Physical Therapist Filed: 09/07/13 6813 Date of Service: 09/07/13 1325 Status: Signed Steam Shovelman: Gilberto Carl PT (Physical Therapist) 09/07/13 1325 PT Last Visit PT Received On 09/07/13 Reason for Treatment Knee replacement Requires PT Follow Up Yes PT Eval/Reassessment Date 09/07/13 Office Inspector Needed No Precautions LE Precaution(s) RLE (WBAT) [...] chair with back Prior Function Level of Dent Modified independent with functional mobility (Pt used SPC prior to sx) Lives With Spouse Employment Retired for age ([employer] full-time) RUE Assessment RUE Assessment WFL (rotator [...] Follow Up Yes PT Eval/Reassessment Date 09/07/13 Office Inspector Needed No Precautions LE Precaution(s) RLE (WBAT) [...] Date of Service: 09/07/13 1257 Status: Signed Steam Shovelman: Shelly Rojo RPH (Pharmacist) Renal Dosing Monitoring: [...] H&P by Drew Hurst MD at 09/06/13 6172 Author: Drew Hurst MD Service: Orthopedic Surgery Author Type: Physician Filed: 09/06/13 1574 Date of Service: 09/06/131624 Status: Signed Steam Shovelman: Drew Hurst MD (Physician) Subjective: Patient is [...] Patient has been treat ed conservatively with [id number] NSAIDs and activity modification. Patient currently rates [...] Care by Jeimy Ayala RN at 09/07/13 1233 Author: Jeimy Ayala RN Service: (none) Author Type: Registered Nurse Filed: 09/07/13 1234 Date of Service: 09/07/131235 Status: Signed Steam Shovelman: Jeimy Ayala RN (Registered Nurse) Problem: Safety [...] 1001 Date of Service: 09/07/13957 Status: Signed Steam Shovelman: Drew Hurst MD (Physician) [facility] Service: Orthopedic Surgery Operative Report PREOPERATIVE DIAGNOSIS: right knee DJD POSTOPERATIVE DIAGNOSIS: right knee DJD PROCEDURE: right total knee arthroplasty with navigation SURGEON: Drew Hurst MD BUILDING SERVICES COORDINATOR: Kaur Del Angel MD ANESTHESIA: General ANESTHESIOLOGIST: Gopal AGUILAR FLUIDS: 1500cc ESTIMATED BLOOD LOSS: minimal TOURNIQUET TIME: 90 min Right thigh URINE OUTPUT: 250cc COMPLICATIONS: none IMPLANTS: Nuevo Triathlon Total Knee system 1- Size 4 [...] cutting block and made my cuts: anterior, environmental protection geologist ior, anterior chamfer, and posterior chamfer. I removed the bony fragments, then placed a l aminar irrigation installation specialist in the flexion gap and removed the [...] of three liters sterile saline with pulse vice president of manufacturing. There was no patellar maltracking. Floseal was [...] extubated. The patient was placed back to [facility] bed, and taken to the recovery room [...]
--- OUTSIDE RECORDS SUMMARY | ~2020-06-30 | XMS | Encounter Summary ---
Demographics + + + | Address | [address] | | | [place] [address] | + + + | Home Phone [...] Team Providers + +------+ + | Care Electronic Semiconductor Processor Name | Role | Phone | + +------+ + PCP | Unavailable | + +------+ + Encounter Details +--------+ + + + + | Date | Type | Department | Care Team | Description | +--------+ + + + + | 10/25/ | Emergency | [facility] | Syed Winchester | Fever, unspecified | | 2016 | | MEDICAL CENTER | DO Don [address] | fever cause; | | | | EMERGENCY CENTER | [address] | Leukocytosis, | | | | [address] | [place] | unspecified type | | | | [facility] [place] | [address] | | | | | [address] | [phone] | | | | | [phone] | | | +--------+ + + + [...] 0313 Date of Service: 10/25/162035 Status: Signed Prevention Specialist: Syed Winchester DO (Physician) [facility] Department of Emergency Medicine 8:37 [...] - TOTAL; Surgeon: Drew Hurst MD; Location: [facility] MAIN OR; Serv e: Orthopedics; Laterality: Right; [...] (two) times daily as needed. Historical Provider Ingalls-3 Fatty Acids (FISH OIL) 1200 MG CAPS [...] 10:40 PM Discuss[address] case with Dr. Ha, Music Engraver, who requests that the patient be st [...] Date/Time Urinalysis (reflex to microscopic/reflex to culture) [[id number]] (Abnormal) Collected: 10/25/162218 Order Status: Completed Specimen Information: Urine, Clean Catch Updated: 10/25/16 22 34 COLOR UA YELLOW CLARITY CLEAR Specific [place], UA 1.020 1.002 - 1.030 LEUKOCYTE ESTERASE NEGATIVE NEGATIVE NITRITE NEGATIVE NEGATIVE UROBILINOGEN NORMAL <1.1 mg/dL PROTEIN NEGATIVE NEGATIVE mg/dL PH,URINE 5.0 5.0 - 8.0 BLOOD NEGATIVE NEGATIVE KETONES NEGATIVE NEGATIVE mg/dL BILIRUBIN NEGATIVE NEGATIVE GLUCOSE 50 (A) NEGATIVE mg/dL Influenza Antigen [[id number]] Collected: 10/25/162104 Order Status: Completed Specimen Information: Nasopharyngeal from Nasopharyngeal Cultur e Updated: 10/25/162141 INFLUENZA A NEGATIVE NEGATIVE INFLUENZA B NEGATIVE NEGATIVE Complete Metabolic Panel [[id number]] (Abnormal) Collected: 10/25/162102 Order Status: Completed Specimen [...] (L) >60 mL/min/1.73m2 CBC w Auto Diff [[id number]] (Abnormal) Collected: 10/25/162102 Order Status: Completed Specimen [...] fol low up and evaluation [address] [facility] [address] Tita Christopher MD Call in 1 week As needed for further follow up and evaluation [address] [facility] [address] [place] [phone] [facility] Emergency Department If symptoms worsen [address] [facility] [address] Discharge Medications: Discharge Medication List as of [...] Rad Conversion - 06/10/2019 6:48 PM TOMMIE [id number] yearsXR CHEST | | 2 VIEW FRONTAL AND COUQILF6410/25/2016 10:32 PM INDICATION: Fever. TECHNIQUE: 2 views [...] | | | | performed at [facility];[address] | | LAB | | | | [address];[place] | | | | | | [address] | | | | + + + + + + | Clarity, | CLEARComment: Testing | | EXTERNAL | | | Urine | performed at [facility];[address] | | LAB | | | | [address];[place] | | | | | | [address] | | | | + + + + + + | Specific | 1.020Comment: Testing | 1.002 - 1.030 | EXTERNAL | | | [place], | performed at [facility];[address] | | LAB | | | Urine | [address];[place] | | | | | | [address] | | | | + + + + + + | Leukocyte | NEGATIVEComment: Testing | | EXTERNAL | | | Esterase, | performed at [facility];888 | | LAB | | | Urine | [address];[place] | | | | | | [address] | | | | + + + + + + | Nitrite, | NEGATIVEComment: Testing | | EXTERNAL | | | Urine | performed at [facility];[address] | | LAB | | | | [address];[place] | | | | | | [address] | | | | + + + + + + | Urobilinoge | NORMALComment: Testing | mg/dL | EXTERNAL | | | n, Urine | performed at [facility];[address] | | LAB | | | | [address] | | | | | | [address] | | | | + + + + + + | Protein, | NEGATIVEComment: Testing | mg/dL | EXTERNAL | | | Urine | performed at [facility];[address] | | LAB | | | | [address];[place] | | | | | | [address] | | | | + + + + + + | pH, Urine | 5.0Comment: Testing | 5.0 - 8.0 | EXTERNAL | | | | performed at [facility];[address] | | LAB | | | | [address];[place] | | | | | | [address] | | | | + + + + + + | Blood, | NEGATIVEComment: Testing | | EXTERNAL | | | Urine | performed at [facility];[address] | | LAB | | | | [address];[place] | | | | | | [address] | | | | + + + + + + | Ketones | NEGATIVEComment: Testing | mg/dL | EXTERNAL | | | | performed at [facility];[address] | | LAB | | | | [address];[place] | | | | | | [address] | | | | + + + + + + | Bilirubin, | NEGATIVEComment: Testing | | EXTERNAL | | | Urine | performed at [facility];[address] | | LAB | | | | [address];[place] | | | | | | [address] | | | | + + + + + + | Glucose, | 50 (A)Comment: Testing | mg/dL | EXTERNAL | | | Urine | performed at [facility];[address] | | LAB | | | | [address];[place] | | | | | | [address] | | | | + + + [...] | performed by ICA Testing performed at [facility];[address] [facility];[place], [place] | | | [address] INFLUENZA B NEGATIVE | | | Testing performed by [employer] Testing performed at [facility];[address] [facility] | | | [facility];[place] [address] | | + + + + +---------+ [...] | | | | | [address];[place] [address] | | | | + + + + + + | Non- | 5.15Comment: Testing | 4.20 - 5.70 | EXTERNAL | | | Red Blood | performed at [facility];888 | M/uL | LAB | | | Cells | [address];[place] | | | | | Counted | [address] | | | | + + + + + + | Hemoglobin | 15.7Comment: Testing | 13.2 - 17.0 | EXTERNAL | | | | performed at [facility];888 | g/dL | LAB | | | | [address];[place] | | | | | | [address] | | | | + + + + + + | Hematocrit, | 46.2Comment: Testing | 39.0 - 50.0 % | EXTERNAL | | | POC | performed at [facility];[address] | | LAB | | | | [address];[place] | | | | | | [address] | | | | + + + + + + | MCV | 89.6Comment: Testing | 80.0 - 100.0 fl | EXTERNAL | | | | performed at [facility];[address] | | LAB | | | | [address];[place] | | | | | | [address] | | | | + + + + + + | MCH | 30.4Comment: Testing | 27.0 - 34.0 pg | EXTERNAL | | | | performed at [facility];[address] | | LAB | | | | [address];[place] | | | | | | [address] | | | | + + + + + + | MCHC | 33.9Comment: Testing | 32.0 - 35.5 | EXTERNAL | | | | performed at [facility];888 | g/dL | LAB | | | | [address];[place] | | | | | | [address] | | | | + + + + + + | RDW-CV | 48.1Comment: Testing | 37 - 53 fl | EXTERNAL | | | | performed at [facility];[address] | | LAB | | | | [address];[place] | | | | | | [address] | | | | + + + + + + | Platelet | 99 (L)Comment: Testing | 150 - 400 K/uL | EXTERNAL | | | Count | performed at [facility];[address] | | LAB | | | Plasma | [address];[place] | | | | | | [address] | | | | + + + + + + | MPV | 8.7Comment: Testing | fl | EXTERNAL | | | | performed at [facility];[address] | | LAB | | | | [address];[place] | | | | | | [address] | | | | + + + + + + | Differentia | AUTOMATEDComment: | | EXTERNAL | | | l Type | Testing performed at | | LAB | | | | [facility];[address];[place] [address] | | | | + + + + + + | % Segmented | 83.01Comment: Testing | % | EXTERNAL | | | | performed at [facility];[address] | | LAB | | | Neutrophils | [address] | | | | | | [address] | | | | + + + + + + | % | 8.29Comment: Testing | % | EXTERNAL | | | Lymphocytes | performed at [facility];[address] | | LAB | | | | [address];[place] | | | | | | [address] | | | | + + + + + + | % Monocytes | 7.46Comment: Testing | % | EXTERNAL | | | | performed at [facility];[address] | | LAB | | | | [address];[place] | | | | | | [address] | | | | + + + + + + | % | 0.85Comment: Testing | % | EXTERNAL | | | Eosinophils | performed at [facility];[address] | | LAB | | | | [address];[place] | | | | | | [address] | | | | + + + + + + | % Basophils | 0.39Comment: Testing | % | EXTERNAL | | | | performed at [facility];[address] | | LAB | | | | [address];[place] | | | | | | [address] | | | | + + + + + + | Absolute | 10.02 (H)Comment: | 1.90 - 7.40 | EXTERNAL | | | Segmented | Testing performed at | K/uL | LAB | | | Neutrophils | [facility];[address];[place] [address] | | | | + + + + + + | Absolute | 1.00Comment: Testing | 1.00 - 3.90 | EXTERNAL | | | Lymphocytes | performed at [facility];888 | K/uL | LAB | | | | [address];[place] | | | | | | [address] | | | | + + + + + + | Absolute | 0.90 (H)Comment: Testing | 0.00 - 0.80 | EXTERNAL | | | Monocytes | performed at [facility];888 | K/uL | LAB | | | | [address];[place] | | | | | | [address] | | | | + + + + + + | Absolute | 0.10Comment: Testing | 0.00 - 0.50 | EXTERNAL | | | Eosinophils | performed at [facility];888 | K/uL | LAB | | | | [address];[place] | | | | | | [address] | | | | + + + + + + | Absolute | 0.05Comment: Testing | 0.00 - 0.10 | EXTERNAL | | | Basophils | performed at [facility];[address] | K/uL | LAB | | | | [address];[place] | | | | | | [address] | | | | + + + [...] | | | | performed at [facility];888 | mmol/L | LAB | | | | [address];[place] | | | | | | [address] | | | | + + + + + + | K | 3.6Comment: Testing | 3.5 - 4.9 | EXTERNAL | | | | performed at [facility];888 | mmol/L | LAB | | | | [address] | | | | | | [address] | | | | + + + + + + | Cl | 95 (L)Comment: Testing | 99 - 109 mmol/L | EXTERNAL | | | | performed at [facility];[address] | | LAB | | | | [address];[place] | | | | | | [address] | | | | + + + + + + | CO2 | 29Comment: Testing | 23 - 32 mmol/L | EXTERNAL | | | | performed at [facility];[address] | | LAB | | | | [address];[place] | | | | | | [address] | | | | + + + + + + | Anion Gap | 17Comment: Testing | 5 - 20 mmol/L | EXTERNAL | | | | performed at [facility];[address] | | LAB | | | | [address] | | | | | | [address] | | | | + + + + + + | Glucose, | 117 (H)Comment: Testing | 65 - 99 mg/dL | EXTERNAL | | | Fasting | performed at [facility];[address] | | LAB | | | | [address];[place] | | | | | | [address] | | | | + + + + + + | BUN | 25Comment: Testing | 8 - 25 mg/dL | EXTERNAL | | | | performed at [facility];[address] | | LAB | | | | [address];[place] | | | | | | [address] | | | | + + + + + + | Creatinine | 1.6 (H)Comment: Testing | 0.70 - 1.30 | EXTERNAL | | | | performed at [facility];888 | mg/dL | LAB | | | | [address];[place] | | | | | | [address] | | | | + + + + + + | BUN/Creatin | 16Comment: Testing | | EXTERNAL | | | ine Ratio | performed at [facility];[address] | | LAB | | | | [address];[place] | | | | | | [address] | | | | + + + + + + | Calcium | 8.4 (L)Comment: Testing | 8.5 - 10.5 | EXTERNAL | | | | performed at [facility];888 | mg/dL | LAB | | | | [address];[place] | | | | | | [address] | | | | + + + + + + | Protein, | 7.7Comment: Testing | 6.3 - 8.2 g/dL | EXTERNAL | | | Total | performed at [facility];[address] | | LAB | | | | [address];[place] | | | | | | [address] | | | | + + + + + + | Albumin | 3.5Comment: Testing | 3.3 - 4.8 g/dL | EXTERNAL | | | | performed at [facility];[address] | | LAB | | | | [address];[place] | | | | | | [address] | | | | + + + + + + | Globulin | 4.2Comment: Testing | 1.3 - 4.9 g/dL | EXTERNAL | | | | performed at [facility];[address] | | LAB | | | | [address] | | | | | | [address] | | | | + + + + + + | A/G Ratio | 0.8 (L)Comment: Testing | 1.0 - 2.4 | EXTERNAL | | | | performed at [facility];[address] | | LAB | | | | [address];[place] | | | | | | [address] | | | | + + + + + + | Bilirubin | 1.4Comment: Testing | 0.1 - 1.5 mg/dL | EXTERNAL | | | Total | performed at [facility];[address] | | LAB | | | | [address] | | | | | | [address] | | | | + + + + + + | ALP, | 52Comment: Testing | 35 - 115 U/L | EXTERNAL | | | External | performed at [facility];[address] | | LAB | | | | [address];[place] | | | | | | [address] | | | | + + + + + + | AST | 24Comment: Testing | 10 - 45 U/L | EXTERNAL | | | | performed at [facility];[address] | | LAB | | | | [address];[place] | | | | | | [phone] | | | | + + + + + + | ALT | 23Comment: Testing | 10 - 65 U/L | EXTERNAL | | | | performed at [facility];[address] | | LAB | | | | [address];[place] | | | | | | [phone] | | | | + + + [...] | | | | | at [facility];[address];[place] [address] | | | | + + + [...]
--- OUTSIDE RECORDS SUMMARY | ~2020-06-30 | XMS | Encounter Summary ---
Demographics + + + | Address | [address] | | | [place] [address] | + + + | Home Phone | | + + + | Preferred Language | Unknown | + + + | Marital Status | | + + + | Mandaeism Affiliation | 1077 | + + + | Race | White | + + + | Ethnic Group | Not or | + + + Author + + + | Author | [facility] | | | and [place] | + + + | Organization | [facility] | | [...] Team Providers + +------+ + | Care Permastone Installer Name | Role | Phone | + +------+ + PCP | Unavailable | + +------+ + Encounter Details +--------+ + + + + | Date | Type | Department | Care Team | Description | +--------+ + + + + | 05/02/ | Hospital | [facility] | Olaf Nicole | | | 1998 - | Encounter | [facility] | MD [address] | | | | | CARDIAC TRANSPLANT | [address] | | | 05/03/ | | [address] | [place] [address] | | | 2000 | | [place] | [phone] | | | | | [address] | | | | | | [phone] | | | +--------+ + + + [...]
--- OUTSIDE RECORDS SUMMARY | ~2020-06-30 | XMS | Encounter Summary ---
Demographics + + + | Address | [address] | | | [place] [address] | + + + | Home Phone [...] Team Providers + +------+ + | Care Barker Operator Name | Role | Phone | [...]
--- OUTSIDE RECORDS SUMMARY | ~2020-06-30 | XMS | Encounter Summary ---
Demographics + + + | Address | [address] | | | [place] [address] | + + + | Home Phone [...] Team Providers + +------+ + | Care Technology Integration Specialist Name | Role | Phone | [...] [address] | | | | | [address] | [address] | | | | | Loop Physician's | [place], [place] | | | | | [place], [facility] floor | [address] | | | | | [place], [place] | [phone] | | | | | [address] | | | | | | [phone] | | | +--------+ + + + [...]
--- OUTSIDE RECORDS SUMMARY | ~2020-06-30 | XMS | Encounter Summary ---
Demographics + + + | Address | [address] | | | [place] [address] | + + + | Home Phone | | + + + | Preferred Language | Unknown | + + + | Marital Status | | + + + | Rastafarian Affiliation | 1077 | + + + | Race | White | + + + | Ethnic Group | Not or | + + + Author + + + | Author | [facility] | | | and [place] | + + + | Organization | [facility] | | | [...] Team Providers + +------+ + | Care Contract Preparer Name | Role | Phone | + +------+ + | Erin Forrester MD | PCP | | + +------+ + Encounter Details +--------+ + + + + | Date | Type | Department | Care Team | Description | +--------+ + + + + | 08/06/ | Orders Only | [facility] | Christina Hurd | | | 2017 | | CONVERSION [address] | | | | | [address] | [address] | | | | | [facility] | [place] [address] | | | | | [address] | [phone] | | | | | [phone] | | | +--------+ + + + [...] + +--------+ + + + | [facility] INTERPRETATION | Routin | 08/06/2017 | | Results for this | | OF OUTSIDE FILMS | e | 10:50 AM | | procedure are in the | | | | PDT | | results section. | + +--------+ + + + documented in this encounter Results [facility] Interpretation of Outside Films (08/06/2017 10:50 AM PDT) + + | Specimen | + + | | + + + + + | Impressions | Performed At | + + + | 1. The left ventricle cavity size is normal in size, mild systolic | | | impaired function EF 40-45%, inferior and inferobasal hypokinesis. 2. | | | The diastolic filling pattern indicates impaired relaxation | | | consistent with mild dysfunction (Grade I). 3. The right ventricle is | | | mildly enlarged with mildly impaired systolic function. 4. Mild | | | degenerative changes in the aortic and mitral valves. 5. There is no | | | pericardial effusion. | | + + + + + + | Narrative | Performed At | + + + | Patient Name: JÚNIOR MAS Date of : 1940 | | | Performing Physician: López Rothman | | | | | | INDICATIONS cad s/p cabg, chf, pacemaker CONCLUSIONS | | | 1. The left ventricle cavity size is normal in size, | | | mild systolic impaired function EF 40-45%, inferior and inferobasal | | | hypokinesis. 2. The diastolic filling pattern indicates impaired | | | relaxation consistent with mild dysfunction (Grade I). 3. The right | | | ventricle is mildly enlarged with mildly impaired systolic function. | | | 4. Mild degenerative changes in the aortic and mitral valves. 5. | | | There is no pericardial effusion. FINDINGS -------- ECG rhythm: | | | Sinus rhythm. Study: A 2-dimensional transthoracic echocardiogram | | | with m-mode, spectral and color flow Doppler was perfomed. Study: | | | This was a technically adequate study. Left Ventricle: Overall left | | | ventricular systolic function is mild-moderately impaired with, an EF | | | between 40 - 45 %. Left Ventricle: The left ventricle cavity size is | | | normal. Left Ventricle: Left ventricular wall thickness is normal. | | | Left Ventricle: There is paradoxical/dysynergic septal motion | | | consistent with RV pacing. Left Ventricle: The diastolic filling | | | pattern indicates impaired relaxation consistent with mild dysfunction | | | (Grade I). Left Ventricle: Inferior and inferobasal segement | | | hypokinesis. Left Ventricle: Poor endocardial border definition | | | prevents accurate regional wall motion abnormality identification. | | | Right Ventricle: The right ventricle is mildly enlarged measuring | | | between 3.4 - 3.7 cm. Right Ventricle: The right ventricular systolic | | | function is mildly impaired. Right Ventricle: Pacer/ICD wire seen. | | | Left Atrium: The left atrium is normal in size. Right Atrium: The | | | right atrium is mildly enlarged. Right Atrium: Pacemaker wire seen in | | | the right atrial cavity. Aortic Valve: The aortic valve is | | | trileaflet. Aortic Valve: There is mild aortic valve sclerosis | | | without stenosis. Aortic Valve: There is no evidence of aortic | | | regurgitation. Aortic Valve: There is no evidence of aortic stenosis. | | | Mitral Valve: There is trace mitral regurgitation. Mitral Valve: | | | Mild mitral annular calcification present. Tricuspid Valve: The | | | tricuspid valve appears structurally normal. Tricuspid Valve: Trace | | | tricuspid regurgitation present. Tricuspid Valve: There is no | | | evidence of pulmonary hypertension. Tricuspid Valve: The right | | | ventricular systolic pressure (pulmonary artery systolic pressure), as | | | measured by Doppler, is 21.64mmHg. Pulmonic Valve: The pulmonic | | | valve was not well visualized. Pulmonic Valve: Trace pulmonic | | | regurgitation. Pulmonic Valve: Mild degenerative changes in the | | | aortic and mitral valves. Pericardium: There is no pericardial | | | effusion. Pericardium: No pleural effusion seen. IVC/Hepatic Veins: | | | The inferior vena cava is normal in size and collapses > 50 % with | | | sniff, indicating normal central venous pressures. Aorta: The aortic | | | root, ascending aorta are within normal dimensions. MEASUREMENTS | | | Ao asc: 2.91 cm Ao sinus: 2.[address] junct: | | | 2.88 cm LA Diam: 3.77 cm EDV(Teich): 149.44 ml IVSd: | | | 0.92 cm LVIDd: 5.53 cm LVPWd: 0.81 cm LVOT Area: 3.93 cm2 | | | LVOT Diam: 2.23 cm %FS: 24.16 % EF(Teich): 47.55 % | | | ESV(Teich): 78.38 ml LVIDs: 4.19 cm SV(Teich): 71.06 ml | | | RVIDd: 3.43 cm LVEF MOD A2C: 47.07 % SV MOD A2C: 71.24 ml | | | LVEDV MOD A2C: 151.33 ml LVLd A2C: 8.47 cm LVEDV MOD A4C: | | | 149.39 ml LVLd A4C: 8.40 cm LVESV MOD A2C: 80.08 ml LVLs A2C: | | | 6.93 cm LAESV(A-L): 51.54 ml LAESV Index (A-L): 24.66 | | | ml/m2 LAAs A2C: 14.93 cm2 LAESV A-L A2C: 40.51 ml LALs A2C: | | | 4.67 cm LAAs A4C: 18.74 cm2 LAESV A-L A4C: 64.72 ml LALs | | | A4C: 4.60 cm RAAs: 18.61 cm2 RAESV A-L: 72.61 ml RAESV | | | MOD: 64.47 ml RALs: 4.04 cm TAPSE: 1.97 cm AV maxPG: | | | 6.48 mmHg AV meanP.71 mmHg AV Vmax: 1.27 m/s AV Vmean: | | | 0.91 m/s AV VTI: 27.28 cm XUAN Vmax: 2.66 cm2 XUAN (VTI): | | | 2.84 cm2 AVAI Vmax: 0.00 cm2/m2 AVAI (VTI): 0.00 cm2/m2 LVOT | | | maxP.96 mmHg LVOT meanP.79 mmHg LVSI Dopp: 37.08 | | | ml/m2 LVSV Dopp: 77.51 ml LVOT Vmax: 0.86 m/s LVOT Vmean: | | | 0.64 m/s LVOT VTI: 19.68 cm MV A Tramaine: 0.83 m/s MV DecT: | | | 148.14 ms MV E Tramaine: 0.67 m/s MV E/A Ratio: 0.81 MV PHT: | | | 42.96 ms MVA By PHT: 5.12 cm2 Septal e': 0.05 m/s Septal | | | E/e': 11.72 Lateral e': 0.10 m/s Lateral E/e': 6.21 RAP: | | | 5 mmHg RVSP: 21.63 mmHg TR maxP.63 mmHg TR Vmax: | | | 2.03 m/s [address] Reporter: CAROLYN Authenticated by: López Rothman | | | Report Date/Time: 08-07-2017 17:18:39 | | + + + + + | Procedure Note | + + | Jonathan Hidalgo - 06/17/2019 6:59 PM PDT Patient Name: Carolyn MAS of | | : 1940 Performing Physician: López | | Stephan INDICATIONS------ | | -----cad s/p cabg, chf, pacemaker CONCLUSIONS 1. The left ventricle cavity | | size is normal in size, mild systolic impaired function EF 40-45%, inferior and | | inferobasal hypokinesis.2. The diastolic filling pattern indicates impaired relaxation | | consistent with mild dysfunction (Grade I).3. The right ventricle is mildly enlarged | | with mildly impaired systolic function.4. Mild degenerative changes in the aortic and | | mitral valves.5. There is no pericardial effusion. FINDINGS--------ECG rhythm: Sinus | | rhythm.Study: A 2-dimensional transthoracic echocardiogram with m-mode, spectral and | | color flow Doppler was perfomed.Study: This was a technically adequate study.Left | | Ventricle: Overall left ventricular systolic function is mild-moderately impaired with, | | an EF between 40 - 45 %.Left Ventricle: The left ventricle cavity size is normal.Left | | Ventricle: Left ventricular wall thickness is normal.Left Ventricle: There is | | paradoxical/dysynergic septal motion consistent with RV pacing.Left Ventricle: The | | diastolic filling pattern indicates impaired relaxation consistent with mild dysfunction | | (Grade I).Left Ventricle: Inferior and inferobasal segement hypokinesis.Left Ventricle: | | Poor endocardial border definition prevents accurate regional wall motion abnormality | | identification.Right Ventricle: The right ventricle is mildly enlarged measuring between | | 3.4 - 3.7 cm.Right Ventricle: The right ventricular systolic function is mildly | | impaired.Right Ventricle: Pacer/ICD wire seen.Left Atrium: The left atrium is normal in | | size.Right Atrium: The right atrium is mildly enlarged.Right Atrium: Pacemaker wire seen | | in the right atrial cavity.Aortic Valve: The aortic valve is trileaflet.Aortic Valve: | | There is mild aortic valve sclerosis without stenosis.Aortic Valve: There is no evidence | | of aortic regurgitation.Aortic Valve: There is no evidence of aortic stenosis.Mitral | | Valve: There is trace mitral regurgitation.Mitral Valve: Mild mitral annular | | calcification present.Tricuspid Valve: The tricuspid valve appears structurally | | normal.Tricuspid Valve: Trace tricuspid regurgitation present.Tricuspid Valve: There is | | no evidence of pulmonary hypertension.Tricuspid Valve: The right ventricular systolic | | pressure (pulmonary artery systolic pressure), as measured by Doppler, is | | 21.64mmHg.Pulmonic Valve: The pulmonic valve was not well visualized.Pulmonic Valve: | | Trace pulmonic regurgitation.Pulmonic Valve: Mild degenerative changes in the aortic | | and mitral valves.Pericardium: There is no pericardial effusion.Pericardium: No pleural | | effusion seen.IVC/Hepatic Veins: The inferior vena cava is normal in size and collapses | | > 50 % with sniff, indicating normal central venous pressures.Aorta: The aortic root, | | ascending aorta are within normal dimensions. MEASUREMENTS Ao asc: 2.91 | | cmAo sinus: 2.[address] junct: 2.88 cmLA Diam: 3.77 cmEDV(Teich): 149.44 | | mlIVSd: 0.92 cmLVIDd: 5.53 cmLVPWd: 0.81 cmLVOT Area: 3.93 [id number] Diam: 2.23 | | cm%FS: 24.16 %EF(Teich): 47.55 %ESV(Teich): 78.38 mlLVIDs: 4.19 cmSV(Teich): | | 71.06 mlRVIDd: 3.43 cmLVEF MOD A2C: 47.07 %SV MOD A2C: 71.24 mlLVEDV MOD A2C: | | 151.33 mlLVLd A2C: 8.47 cmLVEDV MOD A4C: 149.39 mlLVLd A4C: 8.40 cmLVESV MOD A2C: | | 80.08 mlLVLs A2C: 6.93 cmLAESV(A-L): 51.54 mlLAESV Index (A-L): 24.66 ml/m2LAAs | | A2C: 14.93 [id number] A-L A2C: 40.51 mlLALs A2C: 4.67 cmLAAs A4C: 18.74 [id number] | | A-L A4C: 64.72 mlLALs A4C: 4.60 cmRAAs: 18.61 [id number] A-L: 72.61 mlRAESV MOD: | | 64.47 mlRALs: 4.04 cmTAPSE: 1.97 cmAV maxP.48 mmHgAV meanP.71 mmHgAV | | Vmax: 1.27 m/Nikita Vmean: 0.91 m/Nikita VTI: 27.28 cmAVA Vmax: 2.66 cm2AVA (VTI): | | 2.84 [id number] Vmax: 0.00 cm2/m2AVAI (VTI): 0.00 cm2/m2LVOT maxP.96 mmHgLVOT | | meanP.79 mmHgLVSI Dopp: 37.08 ml/m2LVSV Dopp: 77.51 mlLVOT Vmax: 0.86 | | m/sLVOT Vmean: 0.64 m/sLVOT VTI: 19.68 cmMV A Tramaine: 0.83 m/sMV DecT: 148.14 msMV | | E Tramaine: 0.67 m/sMV E/A Ratio: 0.81MV PHT: 42.96 msMVA By PHT: 5.12 [id number] e': | | 0.05 m/sSeptal E/e': 11.72Lateral e': 0.10 m/sLateral E/e': 6.21RAP: 5 | | mmHgRVSP: 21.63 mmHgTR maxP.63 mmHgTR Vmax: 2.03 m/s [address] Reporter: | | DBSAuthenticated by: [facility] Date/Time: 08-07-2017 17:18:39 IMPRESSION: | | 1. The left ventricle cavity size is normal in size, mild systolic impaired function EF | | 40-45%, inferior and inferobasal hypokinesis.2. The diastolic filling pattern indicates | | impaired relaxation consistent with mild dysfunction (Grade I).3. The right ventricle is | | mildly enlarged with mildly impaired systolic function.4. Mild degenerative changes in | | the aortic and mitral valves.5. There is no pericardial effusion. | |Ao asc: 2.91 cm | |Ao sinus: 2.99 cm | |Ao st junct: 2.88 cm | |LA Diam: 3.77 cm | |EDV(Teich): 149.44 ml | |IVSd: 0.92 cm | |LVIDd: 5.53 cm | |LVPWd: 0.81 cm | |LVOT Area: 3.93 cm2 | |LVOT Diam: 2.23 cm | |%FS: 24.16 % | |EF(Teich): 47.55 % | |ESV(Teich): 78.38 ml | |LVIDs: 4.19 cm | |SV(Teich): 71.06 ml | |RVIDd: 3.43 cm | |LVEF MOD A2C: 47.07 % | |SV MOD A2C: 71.24 ml | |LVEDV MOD A2C: 151.33 ml | |LVLd A2C: 8.47 cm | |LVEDV MOD A4C: 149.39 ml | |LVLd A4C: 8.40 cm | |LVESV MOD A2C: 80.08 ml | |LVLs A2C: 6.93 cm | |LAESV(A-L): 51.54 ml | |LAESV Index (A-L): 24.66 ml/m2 | |LAAs A2C: 14.93 cm2 | |LAESV A-L A2C: 40.51 ml | |LALs A2C: 4.67 cm | |LAAs A4C: 18.74 cm2 | |LAESV A-L A4C: 64.72 ml | |LALs A4C: 4.60 cm | |RAAs: 18.61 cm2 | |RAESV A-L: 72.61 ml | |RAESV MOD: 64.47 ml | |RALs: 4.04 cm | |TAPSE: 1.97 cm | |AV maxP.48 mmHg | |AV meanP.71 mmHg | |AV Vmax: 1.27 m/s | |AV Vmean: 0.91 m/s | |AV VTI: 27.28 cm | |XUAN Vmax: 2.66 cm2 | |XUAN (VTI): 2.84 cm2 | |AVAI Vmax: 0.00 cm2/m2 | |AVAI (VTI): 0.00 cm2/m2 | |LVOT maxP.96 mmHg | |LVOT meanP.79 mmHg | |LVSI Dopp: 37.08 ml/m2 | |LVSV Dopp: 77.51 ml | |LVOT Vmax: 0.86 m/s | |LVOT Vmean: 0.64 m/s | |LVOT VTI: 19.68 cm | |MV A Tramaine: 0.83 m/s | |MV DecT: 148.14 ms | |MV E Tramaine: 0.67 m/s | |MV E/A Ratio: 0.81 | |MV PHT: 42.96 ms | |MVA By PHT: 5.12 cm2 | |Septal e': 0.05 m/s | |Septal E/e': 11.72 | |Lateral e': 0.10 m/s | |Lateral E/e': 6.21 | |RAP: 5 mmHg | |RVSP: 21.63 mmHg | |TR maxP.63 mmHg | |TR Vmax: 2.03 m/s | | | |Court Reporter: DBS | |Authenticated by: López Rothman | |Report Date/Time: 08-07-2017 17:18:39 | | | |IMPRESSION: | |1. The left ventricle cavity size is normal in size, mild systolic impaired function EF 40- 45%, inferior and inferobasal hypokinesis. | |2. The diastolic filling pattern indicates impaired relaxation consistent with mild dysfunc tion (Grade I). | |3. The right ventricle is mildly enlarged with mildly impaired systolic function. | |4. Mild degenerative changes in the aortic and mitral valves. | |5. There is no pericardial effusion. | + + documented in this encounter Visit Diagnoses Not on filedocumented in this encounter"
--- OUTSIDE RECORDS SUMMARY | ~2020-06-30 | XMS | Encounter Summary ---
Demographics + + + | Address | [address] | | | [place] [address] | + + + | Home Phone [...] Team Providers + +------+ + | Care Garment Patternmaker Name | Role | Phone | + [...] | [address] | [address] [facility] | | | | | [place] | [address] [facility] | | | | | [address] | [address] | | | | | [phone] | | | +--------+ + + + [...] - 1.030 | EXTERNAL | | | [place], | | | LAB | | | [...]
--- OUTSIDE RECORDS SUMMARY | ~2020-06-30 | XMS | Encounter Summary ---
Demographics + + + | Address | [address] | | | [place] [address] | + + + | Home Phone [...] Team Providers + +------+ + | Care Betting Agency Counter Clerk Name | Role | Phone | + +------+ + PCP | Unavailable | + +------+ + Encounter Details +--------+ + + + + | Date | Type | Department | Care Team | Description | +--------+ + + + + | 09/17/ | Hospital | [facility] | Zay Francis, | | | 1998 - | Encounter | [facility] | [address] | | | | | CARDIAC TELEMETRY | [address] | | | 09/21/ | | [address] | [place] [address] | | | 1998 | | [place] | [phone] | | | | | [address] | | | | | | [phone] | | | +--------+ + + + [...]
--- OUTSIDE RECORDS SUMMARY | ~2020-06-30 | XMS | Encounter Summary ---
Demographics + + + | Address | [address] | | | [place] [address] | + + + | Home Phone [...] + + + | Author | [facility] | + + + | Organization | [facility] | + + + | Address | Unknown | + + + | Phone | Unavailable | + + + Support + + +---------+ + | Name | Relationship | Address | Phone | + + +---------+ + | Beth Mas | E[place] | Unknown | | + + +---------+ + Care Team Providers + +------+ + | Care Grapple Operator Name | Role | Phone | [...] | | | | Loop Physician's | [place], [place] | | | | | [place], [facility] floor | [address] | | | | | [place], [place] | [phone] | | | | | [address] | | | | | | [phone] | | | +--------+ + + + [...] that the patient has been admitted to [facility] as of yesterday. He is in room [...]
--- OUTSIDE RECORDS SUMMARY | ~2020-06-30 | XMS | Encounter Summary ---
Demographics + + + | Address | [address] | | | [place] [address] | + + + | Home Phone [...] Providers + +------+ + | Care Public Safety Officer Name | Role | Phone | [...] | | | | | | | NM | | | | | | | ESOPHAGOGAST | | | | | | | RODUODENOSCO | | | | | | | PY TRANSORAL | | | | | | | DIAGNOSTIC | | | | | | | NM EGD | | | | | | | TRANSORAL | | | | | | | BIOPSY | | | | | | | SINGLE/MULTI | | | | | | | PLE NM EGD | | | | | | | BALLOON | | | | | | | DILATION | | | | | | | ESOPHAGUS | | | | | | | <30 MM DIAM | | | | | | | NM | | | | | | | [...] + + + + | 02/10/ | Hospital | [facility] | Willow Colin MD | | | 2019 | Encounter | [facility] | [address] | | | | | [address] | [address], | | | | | [place] | [place] [address] | | | | | [address] | [phone] | | | | | [phone] | | | +--------+ + + + [...] + + + | Blood Pressure | 133/87 | 02/10/2019 1:52 PM | | | | | PDT | | + + + + + | Pulse | 94 | 02/10/2019 1:52 PM | | | [...] + documented in this encounter Discharge Instructions Wanda Barakat RN - 02/10/2019Formatting of this note might [...] You can't be awakened Date Last Reviewed: 08/13/201619999484-0918 [employer] [address] [place] [address]. All righ ts reserved. This information is [...] you take. This includes prescription medicines, o uxd-ucx-gnhvgit medicines, herbs, vitamins, and other supplements. Be [...] icine to relax you. The procedure takes [id number]. It does not cause trouble breath ing. [...] throat goes away. You can resume eating the or thenex. Risks and possible complications Risks and possible [...] Black, tarry, or bloodystools Date Last Reviewed: 04/26/201619995718-8102 [employer] [address] [place] [address], [place] [address]. All righ ts reserved. This information is [...] are taking. You may need to stop billy ng all or some of these before the test. This includes: All prescription medicines Herbs, vitamins, and other supplements Rrpc-kuf-whugkpy medicines such as aspirin or ibuprofen Street [...] heart or lung disease Date Last Reviewed: 05/27/201719993877-8042 [employer] [address] [place] [address]. All righ ts reserved. This information is [...] | glipiZIDE | | | 0 | // | | | (GLUCOTROL) 10 MG | | | | 19 | | | tablet | | | | | | + + + +---------+ + + | glipiZIDE | | | 0 | /08/15 | | | (GLUCOTROL) 5 mg | [...] + documented as of this encounter H&P Willow Vicente MD - 02/10/2019 12:59 PM PDTSURGICAL INTERIM [...] by: Willow Colin MD, 02/10/2019 13:00 [facility] signed by Willow Colin MD at 02/10 [...] Raciel Mccurdy | 0.9 - 1.2 | [facility] | | | | notified of result. | | [facility] | | | | | | CORE | | | | | | LABORATORY | | + + + + + + | Instrument | | | [facility] | | | ID | | | [...] + + + | [facility] [address] | [address] [place] [address] NE | [place] [address] | [phone] | | [facility] | | | | | LABORATORY | | | | + + + + + POC Glucose (02/10/2019 12:46 PM PDT) + +---------+ + + + | Component | Value | Ref Range | Performed | Pathologist | | | | | At | Signature | + +---------+ + + + | Glucose, | 196 (H) | 70 - 109 mg/dL | [facility] | | | POC | | | [...] + | [facility] | [address] | [place] | [phone] | | [facility] | | [address] | | | - LABORATORY | | [...] technical and professional components were performed by [facility] | | | [facility], [address] [place] [address] | | | (Machine Adjuster Helper: Don Morrell D.O.; IA#: [id number]). | | | Diagnostician: Gely Cerna MD [...] + | Diagnosis | + + | Dysphagia - Primary Dysphagia, unspecified | + + | SEUN (obstructive sleep apnea) Obstructive sleep apnea (adult) (pediatric) | + + | Hypertension Unspecified essential hypertension | + + | GERD (gastroesophageal reflux disease) Esophageal reflux | + + | Diabetes mellitus, type II - ORAL Control Type II or unspecified type diabetes | | mellitus without mention of complication, not stated as uncontrolled | + + | Chronic renal insufficiency, stage 4 (severe) (HCC) | + + documented in this [...] Shortness of Breath, | | | Starting 02/10/19 at 1342, For | | | 1 [...] if SBP <90., Starting | | | Fri02/10/19 at 1342, Hold if HR > | [...] ONCE | | | PRN, Nausea, Starting Fri02/10/19 | | | at 1342, For 1 dose, | | | Recovery/Phase I | | + +---+ | | | + +---+ | ondansetron (ZOFRAN) injection | | | 4 mg 4 mg, Intravenous, ONCE | | | PRN, Nausea, Starting Fri02/10/19 | | | at 1342, For 1 [...]
--- OUTSIDE RECORDS SUMMARY | ~2020-06-30 | XMS | Encounter Summary ---
Demographics + + + | Address | [address] | | | [place] [address] | + + + | Home Phone [...] Team Providers + +------+ + | Care Faculty Dean Name | Role | Phone | [...]
--- OUTSIDE RECORDS SUMMARY | ~2020-06-30 | XMS | Encounter Summary ---
Demographics + + + | Address | [address] | | | [place] [address] | + + + | Home Phone [...] + + + | Author | [facility] | | | and [place] | + + + | Organization | [facility] | | | [...] Providers + +------+ + | Care Senior Product Development Scientist Name | Role | Phone | + [...] | | | | | | | [place] | | | | | | | ESOPHAGOGAST | | | | | | | RODUODENOSCO | | | | | | | PY TRANSORAL | | | | | | | DIAGNOSTIC | | | | | | | LA EGD | | | | | | | BALLOON | | | | | | | DILATION | | | | | | | ESOPHAGUS | | | | | | | <30 MM DIAM | | | | | | | [place] | | | | | | | [...] + + | 07/31/ | Surgery | [facility] | Willow Colin MD | EGD with Dilation | | 2017 | | [facility] | [address] | | | | | [address] | [address] [place], | | | | | [place], [place] | [place] [address] | | | | | [address] | [phone] | | | | | [phone] | | | +--------+---------+ + + + [...] fluids. 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 fiberglass pipe covering supervisor omeprazole at [place], [place]. documented in this encounter Medications at [...] Electronically signed Willow Colin MD 07/31/2017 14:06 [facility] 2:1 1 PM PDTOp Note - Willow [...] [address] | [place] | [phone] | | [facility] | | [address] | | | - LABORATORY | | [...] for Helicobacter pylori with HE stain. [facility]:caw:[id number] GROSS | | | DESCRIPTION: [...] technical and professional components were performed by [facility] [employer] | | | [employer], [address] [place] [address] | | | (Boat Washer: Don Morrell D.O.; [facility]#: [id number]). | | | Diagnostician: Gavin Michaud MD [...]
--- OUTSIDE RECORDS SUMMARY | ~2020-06-30 | XMS | Encounter Summary ---
Demographics + + + | Address | [address] | | | [place] [address] | + + + | Home Phone | | + + + | Preferred Language | Unknown | + + + | Marital Status | | + + + | Mormonism Affiliation | [id number] | + + + [...] + +------+ + | Care Business Continuity Management Director Name | Role | Phone [...] + + | 12/08/ | Telephone | [facility] | Kristie De Los Santos ANP | Device Check | | 2020 | | [facility] [place] | [address] | | | | | [address] | [address] [place], [place] | | | | | [place], [place] | [address] | | | | | [address] | | | | | | [phone] | | | +--------+ + + + [...] 2019. Device: Medtronic pacemaker [facility] Treatment +--------+ + + [...]
--- OUTSIDE RECORDS SUMMARY | ~2020-06-30 | XMS | Encounter Summary ---
Demographics + + + | Address | [address] | | | [place] [address] | + + + | Home Phone [...] Team Providers + +------+ + | Care Gizzard Skin Remover Name | Role | Phone | + [...] | | | | | | | [place] | | | | | | | ESOPHAGOGAST | | | | | | | RODUODENOSCO | | | | | | | PY TRANSORAL | | | | | | | DIAGNOSTIC | | | | | | | IN EGD | | | | | | | BALLOON | | | | | | | DILATION | | | | | | | ESOPHAGUS | | | | | | | <30 MM DIAM | | | | | | | IN | | | | | | [...] + + | 07/31/ | Hospital | [facility] | Willow Colin MD | | | 2017 | Encounter | [facility] | [address] | | | | | [address] | [address], | | | | | [place] | [place] [address] | | | | | [address] | [phone] | | | | | [phone] | | | +--------+ + + + [...] fluids. 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 documented in this encounter Medications at [...] Electronically signed Willow Colin MD 07/31/2017 14:06 [facility] 2:1 1 PM PDTOp Note - Willow [...] if patient has recurrence of dysphagia CC: Ceasr Christopher documented in this enc ounter Plan [...] + | [facility] | [address] | [place] | [phone] | | [facility] | | [address] | | | - LABORATORY | | [...] Negative for Helicobacter pylori with HE stain. [facility]:caw:C2NR GROSS | | | DESCRIPTION: [...] technical and professional components were performed by [employer] | | | [employer], [address] [place] [address] | | | (Artificial Teeth Inspector: Don Morrell D.O.; [place]#: [id number]). | | | Diagnostician: Gavin Michaud MD Pathologist Electronically | | | Signed 08/01/2017 | | + + + + +---------+ + + | Performing | Address | City/State/Zipcode | Phone Number | | Organization | | | | + +---------+ + + | [facility] | | | | | [facility] [...] ONCE PRN, Wheezing, | | | Starting [facility] 07/31/17 at 1242, | | [...]
--- OUTSIDE RECORDS SUMMARY | ~2020-06-30 | XMS | Encounter Summary ---
Demographics + + + | Address | [address] | | | [place] [address] | + + + | Home Phone | | + + + | Preferred Language | Unknown | + + + | Marital Status | Unknown | + + + | Lutheran Affiliation | PRO | + + + [...] Team Providers + +------+ + | Care Streetcar Repairer Helper Name | Role | Phone | [...]
--- OUTSIDE RECORDS SUMMARY | ~2020-06-30 | XMS | Encounter Summary ---
Demographics + + + | Address | [address] | | | [place] [address] | + + + | Home Phone [...] Team Providers + +------+ + | Care Densitometrist Name | Role | Phone | + [...] | | | | | | | [place] | | | | | | | ESOPHAGOGAST | | | | | | | RODUODENOSCO | | | | | | | PY TRANSORAL | | | | | | | DIAGNOSTIC | | | | | | | [place] EGD | | | | | | | BALLOON | | | | | | | DILATION | | | | | | | ESOPHAGUS | | | | | | | <30 MM DIAM | | | | | | | [place] | | | | | | | [...] | | | | | [address] | [address] | | | | | [place] | [address] | | | | | [address] | | | | | | [phone] | | | +--------+ + + + [...] [address] by | | eral | Hand; [id number] catheter | Fred Mendoza RN | Fred [...] different from the original. ANESTHESIA POSTANESTHESIA EVALUATION Daune Mas 77 y.o. male 1940 [id number] Procedure(s) EGD with Dilation (N/A Mouth) Cooperates? [...] by Ld Corado MD 07/31/2017 12:45 [facility] Ld Corado MD at 02/2017 12:45 PM PDTAnesthesia Preprocedure Evaluation - Ld Corado MD - 07/30/2017 11: 41 AM PDT ANESTHESIA PREANESTHESIA EVALUATION Duane Mas 77 y.o. male 1940 [id number] Procedure(s): EGD with Dilation (N/A Mouth) Medical [...]
--- OUTSIDE RECORDS SUMMARY | ~2020-06-30 | XMS | Encounter Summary ---
Demographics + + + | Address | [address] | | | [place] [address] | + + + | Home Phone | | + + + | Preferred Language | Unknown | + + + | Marital Status | Unknown | + + + | Sikhism Affiliation | PRO | + + + [...] Team Providers + +------+ + | Care Tableau Developer Name | Role | Phone | [...] 2017 | | SW Justus Hernandez | [address] | EXCHANGE MICRO x 7 | | | | Rd [facility] | [place], [place] | PATH x 2 | | | | Hospital Admitting | [address] | | | | | Desk Located on the | [phone] | | | | | 9th floor | | | | | | [place], [place] | | | | | | [address] | | | +--------+---------+ + + + [...] (s/p PCI x3, CABG x2) complicated by editor magazine erich systolic heart failure (EF 45%) due [...] excellent response. He will continue PT/OT at [facility] swing bed unit. Per orthopedic surgery, [...] I-CAPS 280-10-2 mg Cap Generic drug: antiox.mv no.10-frko2z-rrmllvh5p-uof-okj Take 1 capsule by mouth once daily. [...] (Non-Steroidal Anti-Inflammatory Drug) Renal Failure Avoid per Spot Welder recommendations Sulfa (Sulfonamide Antibiotics) Rash Vital Signs [...] for after-discharge care Discharge Destination IP [facility] . Specialty: Acute Care Hospital Contact information [address] [place] [id number] [place] Location: [facility] swing bed unit Appointments: Dr. Sherman on 07/23/18 at 10:40am. The discharge note was forwarded to the PCP for review. Discharging Physician: Ann Mahmood MD Suggested CPT: 23318 Discharge Management > 30 minute I spent more than 35 minutes bxws-ol-hwmd with the patient of which 70% was [...] | | 0 | | | | no.25-fwlk8m-evipedd0h-gyz-etm | mouth once daily. | | | [...] negative pressure wound therapy dressing right knee [id number] Subjective: Doing ok overall. No CP/SOB. Tolerating [...] Plan to DC today to SNF in [place]. SNF can pull sutures at 2 weeks from operat kai date (June 27 is 2 weeks post op). Plan to return to Dr. Sherman' clinic 6 weeks an d also have ID clinic visit on that day. Appreciate [facility] and ID help in managing this complex [...] at that time. Elias Soriano MD [facility] Department of Orthopaedics and Rehabilitation PGY-1 Pager [phone] Ann Vang MD - 4:42 PM PDT [...] (s/p PCI x3, CABG x2) complicated by editor magazine erich systolic heart failure (EF 45%) due [...] mg daily Dispo: Anticipate discharge tomorrow to [facility] bed unit if renal function is s table Code status: Full code Diet: Regular diet Prophy: warfarin and heparin Ann Mahmood MD Plunger Shovel Operatorastrophysics teacher Clinical Hospitalist and Medicine Teaching Services [facility] Pager [phone] Suggested CPT: 65303 Subsequent Visit Detailed/High complexity 35 min I spent 37 minutes yfpb-ww-pfol with the patient of which 78% was [...] negative pressure wound therapy dressing right knee [id number] Subjective: Doing ok overall. No CP/SOB. Tolerating [...] baseline "whole foot is numb" (per rocael chrsi). Unchanged sensation to deep/superficial peroneal, lateral/medial plantar [...] to home as t ransporting back to [place] may present the patient and family undo hardship. 6. Dressings/Drains: Pulled yesterday? 7. Dispo/Discharge: Anticipate discharge to SNF in next 1-3 days if all criteria met. 8. Follow-up: Please call the clinic to make a follow up appointment in approximately 2 wee ks with ORTHO TRAUMA & FRACTURE, . AP and lateral of R knee at that time. Elias Soriano MD [facility] Department of Orthopaedics and Rehabilitation PGY-1 Pager [phone] atel, Tanvir - 06/16/2018 8:20 AM PDT [...] three and a half hours away from [place]. At this time, we are unsur e of his ability to follow up with an OPAT clinic or if there is a provider near [place], where the patient resides. 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 This patient was [facility] Villalobos, who agrees with the above assessment and plan unless otherwise documented. Tanvir Ayala, [facility] P SUBJECTIVE Interval Events: No acute events overnight S: patient reports he is feeling well this morning. States he was able to meet with a shelter case manager and had decided to go [...] Mercado MD Division of Hospital Medicine [facility] Pager [phone] I spent more than 35 minutes gcgy-tq-jlfl with the patient of which greater than [...] negative pressure wound therapy dressing right knee [id number] Subjective: Doing ok overall, not too much pain in right knee. Looking forward to getting talkback host to home, "My wants to get back [...] to home as t ransporting back to [place] may present the patient and family undo [...] time. JATIN Dent Orthopaedic Trauma Surgery Pager [phone] Stephan Aguirre MD - 06/14/2018 8:59 AM [...] Dona Mercado MD Division of Hospital Medicine [facility] Pager [phone] I spent more than 35 minutes tsft-un-ywuk with the patient of which greater than [...] negative pressure wound therapy dressing right knee [id number] Subjective: Pain improving in R knee. Objective: [...] at that time. SEBAS PLEITEZ MD Pager [phone] tephan Mercado M D - 06/13/2018 9:51 [...] Andrichard Mercado MD Division of Hospital Medicine [facility] Pager [phone] I spent more than 35 minutes drqa-tg-mheb with the patient of which greater than [...] negative pressure wound therapy dressing right knee [id number] Subjective: Painful in R knee today, but [...] at that time. SEBAS PLEITEZ MD Pager [phone] Stephan Aguirre M D - 06/12/2018 1:24 [...] Andrichard Mercado MD Division of Hospital Medicine [facility] Pager [phone] I spent more than 35 minutes kmyl-dh-cgkp with the patient of which greater than [...] total arthroplasty. Nika martinez was referred to [facility] for joint revision, and presented emergently to [facility] ED from [facility] ([place], [place]). Prior to presentation patient states that [...] IV (baseline cr 1.8-2.0), has had prior IA, no CVA. For his right lower extremity [...] mild distal inferior-apical ischemia, LVEF 53%. -10/2015 [facility] with 90% ostial first diagonal, 85% ostial second diagonal, occluded stent of proximal RCA with left to right coronary collaterals, Patent SVG to LAD Ischemic Cardiomyopathy c/b Chronic Systolic Heart Failure and Diastolic Heart Failure -10/2015 [facility] with EF 45% and inferiobasal akinesia [...] po daily Carvedilol 12.5mg po daily -Y [place]-3 fatty acid 1,200mg po bid Acetaminophen-codeine po [...] the Social Hx as appropriate. Lives in [place], [place], Greater than 40 PYH tobacco use, [...] 2012 Total Knee Replacement who presents 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 -would consult grain sacker for enhanced nutrition in post-operative period Non-Insulin [...] DVT. Dean Ugarte MD Clinical Hospitalist Services [facility] Pager [phone] 06/11/2018 10:44 PM [facility] DEPARTMENT: Hosp ([facility]) - [phone] Place of Service: [facility] [id number] Date of Service: 07/25/2016 [facility] [id number] Modifiers:GC Resident Involved: No Service: PRIMARY HOSPITALIST Suggested CPT: 17084 Initial Visit Comp/High Complexity 70 min I [...] Frequent lab draws Procedure location: Unit:[facility] Room: 14 Providers: Attending name: Attending physically present: No PICC Nurse name: Frances Fair RN BSN VAT Assisted by Christina March RN BSN VAT Pre-Procedure Consent: written consent obtained Consent given by: Patient Patient identity confirmed per protocol: Yes Team Pause: Immediatly prior to the procedure a pause per protocol was called. A pause veri fies correct patient, procedure, equipment, administrative support assistant and site/side marked as required. CLABSI Prevention [...] area Basilic vein. 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 Postoperative Diagnosis: same Procedures Performed: 1. Right knee arthrotomy with drainage for infection and polyethylene exchange 2. Application TINO disposible negative pressure wound therapy dressing right knee [id number] Anesthesia: General endotracheal anesthesia. Implants: excahgned alisha triathalon poly size 15, 13mm EBL: 50 Complications: None Specimens: 6 cultures, 1 path Indication For Procedure: Solo Alves was transferred to [facility] for sepsis after previosuly having been treated with a right total knee. He ws medically unstable and transferred to [facility] medical service. An apsirate was positive. I [...] Patricia wrap. He was then [facility] and transported back to the postanesthesia [...] as it stands. Ghassan Sherman MD, MPH Grout Machine Operator, Dept. of Orthopaedics [address] [place] [address] [email or web address] docu mented in this encounter [...] patient will need to follow up at [facility] on July 23 with orthopedics. During t hat time,we will cooridnate so that he may follow up with ID/OPAT in regards to his treatmen t. He will be discharged to [facility] to receive inpatient therapy and OPAT. 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 at [facility]. If patient is discharged fr om [...] the primary team. This patient was [facility]ed [facility] [address] Villalobos, who agrees with the above assessment and plan unless otherwise documented. Tanvir Ayala, [facility] P SUBJECTIVE Interval Events: No acute [...] 07/24/18 to be continued via OPAT at [facility] Microbiology Data: Source Date Results [...] tablet allopurinol 300 mg oral tablet antiox.mv no.34-rnis2k-rlbnchy8r-cqm-zsi (I-CAPS) 280-10-2 mg oral capsule carvedilol 12.5 [...] Anticoagulation Clinic/Provider: New PCP Dr. Don Estrada ([phone]) Date INR Warfarin Dose 06/17/2018 1.78 2.5 [...] make recommendations. Please page clinical ph armacist (#[phone]) or call central inpatient pharmacy ([phone]) with questions. Rashard Jacob Pharm. D. Candidate Associated attestation - Mary Wade [facility] - 06/17/2018 11:14 AM PDT--I have reviewed the note written by compounding pharmacy technician Rashard Jacob and I agree with the content and his plan for warfarin on this patient. Thank you, Mary Mauro [facility]. Pager [phone] Wade Mary [facility] - 06/16/2018 1:26 PM PDTFormatting [...] Anticoagulation Clinic/Provider: new PCP Dr. Don Estrada ([phone]) Date INR Warfarin Dose 06/16/2018 1.51 2.5mg [...] make recommendations. Please page clinical ph armacist (#[phone]) or call central inpatient pharmacy ([phone]) with questions. Thank you for consult, Mary Wade [facility]. Pager [phone] Trish Blankenship MD - 10:46 AM PDTAssociated Order(s): IP CONSULT TO INFECTIOUS DISEASESFormatting of thi s note might be different from the original. [facility] Infectious Diseases OPAT Referral for Discharge Planning Team B: OPAT RN Jaye Young, Office: [phone], Pager: [phone] ID Diagnosis: PJI Antibiotic agent and dosing: [...] (pt has an ortho appointment 10:40 ) Rocket Propellant Plant Supervisor: For all patients requiring IV antibiotic therapy, please route your OPAT [place] n of Care Note (.CMOPAT) to [facility] "p OPAT/Infectious Diseases clinic" Pool at [...] and make recommendations. Please page clinical pharmacist (#[phone]) or call central inpatient pharmacy ([phone]) with questions. Subjective/Objective: Allergies: Nsaids (non-steroidal anti-inflammatory [...] by his new PCP Don Estrada MD ([phone]). The patient reports Dr Estrada wanted him [...] D. 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 We will discuss [facility] OPAT vs outside providers. Formalized recs pending Recommendations were communicated directly to the primary team. This patient was [facility]ed [facility] Vill[facility]os, who agrees with [...] arthritis. The patient was then transferred from [place] to [facility] for fu rther evaluation. While here, [...] 300 mg by mouth once daily. antiox. no.84-gkgr4g-jgzfsnj2w-pjw-fbw (I-CAPS) 280-10-2 mg oral capsule Take 1 [...] (Non-Steroidal Anti-Inflammatory Drug) Renal Failure Avoid per Spot Welder recommendations Sulfa (Sulfonamide Antibiotics) Rash Social History [...] documen dilcia any additions or exceptions. Mr. Msa is an 78-year-old male currently admitted for [...] care. Ishaan Villalobos MD Division of Infectious DiseasesRedding, Ramon, PharmD - 06/14/2018 7:36 PM PDT [...] lab draw. - Please page clinical pharmacist (#[phone]) or call central inpatient pharmacy ([phone]) wit h questions. Subjective/Objective: Júnior Mas, a [...] CULTURE, TISSUE-PROSTHETIC JOINT INFECTION AER AND MARIELOS [[id number]] (Abnormal) KP LAB Collec dilcia: 06/12/18 1354 Lab Status: Preliminary result Specimen: Tissue from Knee - right Updated: 06/14/18 1344 CULTURE RESULT LAB Staphylococcus epidermidis (A) Ref Range: Narrative: Culture Report: Staphylococcus epidermidis Gram Stain: No squamous epithelial cells Rare polymorphonuclear cells No organisms seen Thank you, Ramon Mercado, PharmD, [facility] Clinical Pharmacist alickn, Torey Adame rmD - [...] and make recommendations. Please page clinical pharmacist (#[phone]) or call central inpatient pharmacy ([phone]) with questions. Subjective/Objective: Júnior Mas, a 78 [...] by his new PCP Don Estrada MD ([phone]). The patient reports Dr Estrada wanted him [...] Akers PharmD, [facility] Pager [phone] Evgeny Robles PharmD - 06/13/2018 8:41 AM [...] on stable regimen. Please page clinical pharmacist (#[phone]) or call central inpatient pharmacy ([phone]) with q uestions. Subjective/Objective: Indication: infectious disorder of joint Therapy start date: 06/12/18 Anticipated duration: TBD Goal trough: ~15 mg/L Urine output: unavailable for most of the past 24 hours Renal function: stable , current SCr 1.66 (Baseline SCr 1.6-1.8) Actual body weight: Weight: 86.7 kg (191 lb 1.6 oz) (06/13/18 9008) Pertinent cultures/sensitivities: 06/12/18 blood and tissue cultures - in process Thank you for the consult, Evgeny Akers PharmD, [facility] Pager [phone] Harley Echols MD - 06/11/2018 7:27 PM PDT [facility] DEPARTMENT OF ORTHOPAEDICS & REHABILITATION HISTORY & PHYSICAL EXAMINATION Patient: Júnior Mas Encounter Date: 06/11/2018 Attending Physician: Maral Leon MD HISTORY OF PRESENT ILLNESS: Júnior Mas is a 78 year old male with CHF, gout, CAD with prior IA, DMII, HTN who presents with 2 weeks of progressive right knee pain, stiffness, fevers and malaise. He had his tota l knee arthroplasty done in [address] Hurst at [facility] for advance d DJD. He's had no problems with his knee replacement until 2 weeks ago. Denies any trauma, recent infection, colonoscopy or dental procedure. He has chronic venous stasis with blister formation on the RLE. He denies any pain or complaints elsewhere. He presents as a transfer from an [facility] where there was a concern for a septic prost hetic knee. ESR was 112, CRP 159 and WBC count of 8. An arthrocentesis was performed today w hich demonstrated 78K WBC (95% PMN), 90K RBCs, no crystal and no organisms seen with culture s pending. He was transferred to [facility] for further management of a septic prosthetic knee. Implants: [place] Triathlon Total Knee System 1. Size 4 [...] up appointment in approximately 2 weeks w [facility] ORTHO TRAUMA & FRACTURE, The orthopaedics consult pager is #[phone], please call with questions. Harley Weaver MD Resident Department of Orthopaedics Pager [phone] [facility] Department of Orthopaedics & Rehabilitation [phone] [facility] Mail Code: OP31 [facility] [id number] Associated attestation - Ghassan Sherman MD - [...] call me for questions. GHASSAN SHERMAN MD [facility] [address] [id number]/[id number] [place] [address] documented in this encounter ED Notes Carla [...] (H) 0.70 - 1.30 mg/dL EGFR - MARTINIQUAIS 39 (L) >60 mL/min EGFR NON -MARTINIQUAIS 32 (L) >60 mL/min SODIUM, PLASMA (LAB) [...] total knee replacement in 2013 done in [facility]. Right k nee also became more swollen at that time, though without any warmth or redness. Pain worse with any movement and better at rest. He was evaluated by his PCP and started on coumadin for question of DVT, though RLE ultraso und was negative. Seen by Dr. René Yen (orthopedics) in [place] 06/09 with the following labs. 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 Laboratory and imaging results including ESR, CRP were reviewed and interpreted, and notabl e for the following: - significantly elevated ESR and CRP - arthrocentesis at [place] with 79,000 WBCs The patient received the following in the emergency department (including medications, inte rventions, consultations, and reassessments): - orthopedics consultation, plan for [place] tomorrow Given this, patient required admission for further care. We spoke to the [facility] ist service, who accepted patient to [...] Information: Patient discharging to swing bed at [facility] in [facility]. Reviewed DC to SNF AVS with patient and family, all questions answered, reinforced fo llow up appointments per AVS. PICC line in RUE with dressing CDI at discharge. TINO dressing CDI with green light flashing at discharge. Telephone report given to FYL Vanegas at [facility] at 1125. Transportation provided by family [...] njury prevention even in recliner chair. (06/15/18 0946) [facility] IP NURSE HANDOFF: [facility] [...] njury prevention even in recliner chair. (06/15/18 6826) [facility] IP NURSE HANDOFF: [facility] hospital course [...] Met Case Management OPAT Plan of Care: [facility] hospital discharge date: 06/17/2018 This patient will be followed for all post hospital OPAT care needs by: [facility] OPAT/Infectiou s Diseases Clinic, ; IV antibiotic orders were provided to: Other vendor facility, Name: [facility], , , Attn: [...] throughout session other than pt and therapist: rehab nursing tech Current unit: 9k Brief Hospital Course:Júnior [...] with FWW: minimum assist, 15 feet with rehab nursing tech stand by assist and follow ing with wheelchair. Chair to chair transfer front wheeled walker and minimum assist Pt left up in recliner chair, call light/urinal and belongings all in reach. [facility] BASIC MOBILITY Difficulty turning over in [...] to do/total assistance - Total/Dependen t Assist [facility] Basic Mobility Total Score 14 Interpretation of [facility] Short Form - Basic Mobility: CMS [...] to be determined . Umm Joy, BRICE [id number] andoff - Emily Covarrubias RN - 06/16/2018 [...] njury prevention even in recliner chair. (06/15/18 9412) [facility] IP NURSE HANDOFF: [facility] hospital course [...] As evidenced by: Poor intake tonight from [id number] despite encouragement. He states that his water [...] njury prevention even in recliner chair. (06/15/18 0922) [facility] IP NURSE HANDOFF: [facility] course [...] throughout session other than pt and therapist: rehab nursing tech and student observer Current unit: 9k [...] cell phone and water all in reach. [facility] BASIC MOBILITY Difficulty turning over in [...] to do/total assistance - Total/Dependen t Assist [facility] Basic Mobility Total Score 9 Interpretation of [facility] Short Form - Basic Mobility: CMS [...] Equipment recommendations: to be determined [place] [id number] andoff - Maria Dolores Gurrola RN - [...] njury prevention even in recliner chair. (06/15/18 6855) [facility] IP NURSE HANDOFF: [facility] course [...] at EOB finishing breakfast with family at [facility]. Recliner found and placed in room [...] nutrient distribution type or amount Nutrition Assessment: parking inspector received. Pt does not like food here, [...] intake Following, Ivana Mendez, MS, RD, LD, [facility] Pager #: [phone] Comments: Júnior Mas is a 78 y.o. [...] 2012 Total Knee Replacement who presents to 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 Monitor UOP- no ouput from 3060-0152. [facility] notified- BMS ordered. encourage fluids. MOBILITY: 2pa [...] PM PDT Physical Therapy Evaluation and Treatment [id number] [facility] Day: 3 Date of : 1940 [...] going down ramp) Vision/Hearing: hearing aids (very CACHIL DEHE; states he refuses hearing aids) Patient / Family Goal: patient will not state; patient : For patient to return home. Language: Wolof. Barriers: Very CACHIL DEHE, not fully attentive. Pain: "lots"; refuses to [...] assist after focus on m idline. PT, INTERNAL GRINDER SET UP OPERATOR and patient encourage patient to get up to a chair, with assistance, patient r efused 4 times. Outcome Measure(s): 5 Time Sit to Stand: unable. >15 seconds predicts recurrent fallers [facility] BASIC MOBILITY Difficulty turning over in [...] to do/total assistance - Total/Dependen t Assist [facility] Basic Mobility Total Score 9 Interpretation of [facility] Short Form - Basic Mobility: CMS [...] underestimate Ended session: Patient supine in bed. INTERNAL GRINDER SET UP OPERATOR attending to patient. ASSESSMENT: Patient presents s/p [...] RN - 06/14/2018 2:37 AM PDTNursing Handoff [facility] IP NURSE HANDOFF: [facility] course [...] RN - 06/13/2018 1:32 AM PDTNursing Handoff [facility] IP NURSE HANDOFF: [facility] hospital course [...] Saige Rivera RN - 06/12/2018 8:36 PM [facility] Dis[facility] Criteria (Stable For [...] information: see anesthesia record Functional Epidural: No INFORMATION LEAD: No Respiratory: RR: 17, O2 Sat: 98 %, O2 Delivery: Nasal cannula Breath Sounds: WDL Except (SEUN - not diagnosed) TAYLOR: LLL: RUL: RLL: SEUN No Comment: none Cardiac: BP: 113/47 HR: 94 GI: Nausea/Vomiting Status: No Signs/Symptoms: Interventions: Assessment: Comments: toleratingPO : Last void: at 1900 Contact Name: Beth Contact Number: [phone] Family contacted: Yes Comment:updated family Belongings:[facility] Rahel Shaw RN - 06/12/2018 [...] in the provider note. Sandra Valle MD [facility] ransfer Note - Arnie Busby ANP - 06/11/2018 3:19 PM PDT Call from Dr. Eric Yen, [facility] Pt with hx of CHF with significant fluid retention, right knee replacement, chronic leg ulc ers has infected total knee. Presented to clinic today with right knee swelling and pain. Right knee aspirate today: 79k white cells Markedly elevated CRP and sed rate Temp 99.4, vitals stable and normal Spoke with [facility] orthopedic surgeon Dr. Leon who advised transfer to [facility] ED Pt coming now via POV [facility] Rita Sandhu - 06/11/2018 3:19 PM PDTPt with post procedure infection, R total knee. Connected ref with ROCAEL Sanders. [facility] Rita Barker - 06/11/2018 2:09 PM PDTRef [facility] ortho Dr. Maral Leon who advised PT to come to [facility] ED. Advised Dr. Yen to call [...] + + + | [facility] | [address] | [place], [place] | | | OPHELIA LOZADA OF CARE | [address] | [address] | | | TESTS | | | [...] | + + + + + | [facility] | [address] | [place] [address] | | | SERVICES, CORE | DANI [...] | | | LABORATORY | | | [place] | | | SERVICES, | | | [...] | + + + + + | [facility] | [address] | [place] [address] | | | SERVICES, CORE | DANI [...] [facility] | [address] | [place], [place] | | | OPHELIA LOZADA OF FUAD | [address] | [address] | | | TESTS | | | [...] [facility] | [address] | [place], [place] | | | KIERRA DICKSON OF [facility] | [address] | [address] | | | TESTS | | | [...] draws Procedure location: | | | Unit:9 [facility] Room: 14 Providers: Attending name: Attending [...] | | | correct patient, procedure, equipment, administrative support assistant and site/side | | | marked as [...] | area Basilic vein. Catheter lot number: [id number] with a length of 55 | | [...] [facility] | [address] | [place], [place] | | | KIERRA POINT OF CARE | [address] | [address] | | | TESTS | | | [...] | + + + + + | [facility] | [address] | [place] [address] | | | SERVICES, CORE | DANI [...] | | | LABORATORY | | | [place] | | | SERVICES, | | | [...] | + + + + + | [facility] | [address] | [place] [address] | | | SERVICES, CORE | DANI [...] [facility] | [address] | [place], [place] | | | OPHELIA LOZADA OF CARE | [address] | [address] | | | TESTS | | | [...] DARSHANA | [address] | [place], [place] | | | OPHELIA LOZADA OF CARE | [address] | [address] | | | TESTS | | | [...] (H) | 70 - 99 mg/dL | [facility] - | | | GLUCOSE, | [...] [facility] | [address] | [place], [place] | | | OPHELIA LOZADA OF CARE | [address] | [address] | | | TESTS | | | [...] | + + + + + | [facility]ATORY | [address] | [place] [address] | | | SERVICES, CORE | DANI [...] | | | LABORATORY | | | [place]IS | | | SERVICES, | | | [...] | + + + + + | [facility] | [address] | [place] [address] | | | SERVICES, CORE | DANI [...] [facility] | [address] | [place] [address] | | | SERVICES, CORE | PARK [...] [facility] | [address] | [place] [address] | | | SERVICES, CORE | PARK [...] | + + + + + | [facility] | [address] | [place] [address] | | | SERVICES, CORE | PARK [...] [facility] | [address] | [place] [address] | | | KAREEM FINCH | DANI [...] [facility] | [address] | [place], [place] | | | KIERRA POINT OF CARE | [facility] | [address] | | | TESTS | | | [...] | | | LABORATORY | | | [place] | | | SERVICES, | | | [...] is appropriate. | LABORATORY | | Page [phone] or call [phone] with questions. Thank you. GFR is | [...] | + + + + + | [facility] | [address] | [place] [address] | | | SERVICES, CORE | DANI [...] + + | [facility] | [address] | [place] [address] | | | SERVICES, KAREEM | DANI [...] is appropriate. | LABORATORY | | Page [phone] or call [phone] with questions. Thank you. | SERVICES, CORE | + + + + + + + + | Performing | Address | City/State/Zipcode | Phone Number | | Organization | | | | + + + + + | [facility] | [address] | [place] [address] | | | SERVICES, KAREEM | [address] [...] [facility] | [address] | [place], [place] | | | OPHELIA LOZADA OF CARE | [address] | [address] | | | TESTS | | | [...] DARSHANA | [address] | [place], [place] | | | [place] OF [facility] | [address] | [address] | | | TESTS | | | [...] | + + + + + | [facility] | [address] | [place] [address] | | | SERVICES, CORE | DANI [...] | | | LABORATORY | | | [place] | | | SERVICES, | | | [...] | + + + + + | [facility] | [address] | [place] [address] | | | KAREEM FINCH | DANI [...] [facility] | [address] | [place], [place] | | | KIERRA POINT OF CARE | [address] | [address] | | | TESTS | | | [...] [facility] | [address] | [place], [place] | | | OPHELIA LOZADA OF [facility] | [address] | [address] | | | TESTS | | | [...] [facility] | [address] | [place], [place] | | | OPHELIA LOZADA OF CARE | [address] | [address] | | | TESTS | | | [...] | + + + + + | [facility] DEPT OF | [address] | [place], [place] | | | CARDIOLOGY | [address] | [address] | | + + + + + [...] D[facility] | [address] | [place], [place] | | | OPHELIA LOZADA OF CARE | [facility] | [address] | | | TESTS | | | [...] | + + + + + | [facility] | [address] | [place] [address] | | | SERVICES, CORE | PARK [...] | | | LABORATORY | | | [place] | | | SERVICES, | | | [...] | + + + + + | [facility] | [address] | [place] [address] | | | SERVICES, CORE | PARK [...] | + + + + + | [facility] | [address] | [place] [address] | | | SERVICES, CORE | DANI [...] | | | LABORATORY | | | [place] | | | SERVICES, | | | [...] | + + + + + | [facility] | [address] | [place] [address] | | | SERVICES, CORE | PARK [...] [facility] | [address] | [place] [address] | | | SERVICES, | [address] [...] | + + + + + | [facility] | [address] | [place] [address] | | | SERVICES, | [address] [...] | + + + + + | [facility] | [address] | [place] [address] | | | KAREEM FINCH | [address] [...] [facility] | [address] | [place] [address] | | | SERVICES, | [address] [...] | + + + + + | [facility] | [address] | [place] [address] | | | SERVICES, CORE | DANI [...] (H) | 70 - 99 mg/dL | [facility] - | | | GLUCOSE, | [...] [facility] | [address] | [place], [place] | | | KIERRA POINT OF CARE | [address] | [address] | | | TESTS | | | [...] | | | LABORATORY | | | [place] | | | SERVICES, | | | [...] | + + + + + | [facility] | [address] | [place] [address] | | | KAREEM FINCH | DANI [...] | + + + + + | [facility] | [address] | [place] [address] | | | SERVICES, CORE | DANI [...] (H) | 70 - 99 mg/dL | [facility] - | | | GLUCOSE, | [...] [facility] | [address] | [place], [place] | | | OPHELIA LOZADA OF [facility] | [address] | [address] | | | TESTS | | | | + + + + + PROCEDURE NOTE (06/12/2018 2:57 PM PDT) + + + | Narrative | Performed At | + + + | Ghassan Sherman MD 06/17/2018 2:15 PM Date of Service: | | | 08/01/2015 Attending Surgeon: Ghassan Sherman MD | | | Scratcher(s): mesfin thompson MD Preoperative Diagnosis: 1. 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 Postoperative Diagnosis: | | | same Procedures Performed: 1. Right knee arthrotomy with | | | drainage for infection and polyethylene exchange 2. Application | | | TINO disposible negative pressure wound therapy dressing right knee | | | [id number] Anesthesia: General endotracheal anesthesia. | | | Implants: excahgned alisha triathalon poly size 15, 13mm EBL: 50 | | | Complications: None Specimens: 6 cultures, 1 path Indication | | | For Procedure: Solo Alves was transferred to [facility] for sepsis | | | after [...] | | stands. Ghassan Sherman MD, MPH Grout Machine Operator, Dept. of | | | Orthopaedics [place] [address] [address] | | | Maricel [address]. [address] [place] [address] | | | [email or web address] | | + + + [...] [facility] | [address] | [place], [place] | | | OPHELIA LOZADA OF CARE | [address] | [address] | | | TESTS | | | [...] [facility] | [address] | [place], [place] | | | OPHELIA LOZADA OF [facility] | [address] | [address] | | | TESTS | | | [...] - | | | | | | [place] | | + + + + + [...] Propionibacterium due to growth of other | [facility] | | organsims. Gram Stain: No squamous epithelial cells Moderate | | | polymorphonuclear cells No organisms seen | | + + + + + + + + | Performing | Address | City/State/Zipcode | Phone Number | | Organization | | | | + + + + + | [facility] | [address] | [place] [address] | | | [place] | | | [...] + | [facility] | [address] | [place] [address] | | | [place] | | | [...] + | [facility] | [address] | [place] [address] | | | [place] | | | [...] + | [facility] | [address] | [place] [address] | | | [place] | | | [...] | + + + + + | [facility] | [address] | [place] [address] | | | [place] | | | [...] | | | | | | number [phone].A. Knee, | | | | | | [...] + + + + + | [facility] | [address] | [place] [address] | | | PATHOLOGY | [address] [...] - | | | | | | [place] | | + + + + + [...] + | [facility] | [address] | [place] [address] | | | [place] | | | | + + + [...] [facility] | [address] | [place], [place] | | | OPHELIA LOZADA OF CARE | [facility] | [address] | | | TESTS | | | [...] [facility] | [address] | [place], [place] | | | OPHELIA LOZADA OF CARE | [facility] | [address] | | | TESTS | | | [...] [facility] | [address] | [place], [place] | | | KIERRA POINT OF CARE | [address] | [address] | | | TESTS | | | [...] | + + + + + | [facility] | [address] | [place] [address] | | | SERVICES, CORE | DANI [...] [facility] | [address] | [place] [address] | | | STEF, CORE | PARK [...] | + + + + + | [facility] | [address] | [place] [address] | | | SERVICES, CORE | PARK [...] | + + + + + | [facility] | [address] | [place] [address] | | | SERVICES, CORE | DANI [...] | + + + + + | [facility] | [address] | [place] [address] | | | STEF | DANI ALEXIS [...] | + + + + + | [facility] | [address] | [place] [address] | | | KAREEM FINCH | DANI [...] | | | LABORATORY | | | [place] | | | SERVICES, | | | [...] the MDRD equation recommended by the | [facility] | | National Kidney Disease Education Program. [...] [facility] | [address] | [place] [address] | | | SERVICES, CORE | DANI [...] 36.5 (H) | 26.0 - 36.0 | [facility] | | | | | seconds | [...] | + + + + + | [facility] | [address] | [place] [address] | | | SERVICES, CORE | [address] [...] (H) | 0.90 - 1.20 INR | [facility] | | | | | | LABORATORY [...] [facility] | [address] | [place] [address] | | | SERVICES, CORE | [address]ARK [...] [facility] | [address] | [place] [address] | | | SERVICES, CORE | PARK [...] [facility] | [address] | [place] [address] | | | SERVICES, KAREEM | [address] | | | + + + + + ED INFORMATION EXCHANGE (06/11/2018 6:04 PM PDT) + + | Specimen | + + | | + + + + + | Narrative | Performed At | + + + | [id number] This patient has registered at the [place] | [facility] | | [facility] Emergency Department For more | MEDICAL | | information visit: | TECHNOLOGIES | | [email or web address] | | | 35ffec Security Events No [...] Chief Complaint Aug | | | 2017 [facility] [place] Emergency | | | Emergency 10,800. REF Recent Inpatient Visit | | | Summary No recorded inpatient visits. E.D. Visit Count (12 mo.) | | | Facility Visits [facility] 1 Total 1 | | | [...] | | facilities for additional information. 2018 [employer] | | | Business Lab. - [place], [place] - | | | [email or web address] | | + + + + + | Procedure Note | + + | Service Account, Rtf Results Inbound - 06/11/2018 6:06 PM PDT Formatting of this | | note might be different from the original.DANIEL?NOTIFICATION?06/11/2018 18:04?CHACE | | JÚNIOR? patient has registered at the [facility] [employer] | | [facility] For more information visit: | | [email or web address] Security | | EventsNo recent Security Events currently on fileED Care GuidelinesThere are currently | | no ED Care Guidelines in DANIEL for this patient. Please check your facility's medical | | records system.Recent Emergency Department Visit SummaryAdmit Date Facility [facility] State | | Type Major Type Diagnoses or Chief Complaint Jun 11, 2018 [facility] | | [facility] Emergency Emergency 10,800. REF Recent Inpatient Visit | | SummaryNo recorded inpatient visits. E.D. Visit Count (12 mo.)Facility Visits [place] | | [facility] 1 Total 1 Note: Visits [...] aforementioned facilities for additional information. ? 2018 [employer] | | Business Lab. [facility], [place] - [email or web address] | |Facility Visits | |[facility] 1 | |Total 1 | |Note: [...] facilities for additional information. | |? 2018 [employer] - [place], [place] - [email or web address] | + + + + + + + | Performing | Address | City/State/Zipcode | Phone Number | | Organization | | | | + + + + + | [facility] | [address] | [place], [place] | [phone] | | TECHNOLOGIES | [address] | [address] | | + + + + + [...] oral, NEEDED, Starting | | | [facility] 06/11/18 at 2306, Until Wed | [...]
--- OUTSIDE RECORDS SUMMARY | ~2020-06-30 | XMS | Encounter Summary ---
Demographics + + + | Address | [address] | | | [place] [address] | + + + | Home Phone | | + + + | Preferred Language | Unknown | + + + | Marital Status | | + + + | Worship Affiliation | 1077 | + + + | Race | White | + + + | Ethnic Group | Not or | + + + Author + + + | Author | [facility] | | | and [place] | + + + | Organization | [facility] | [...] Team Providers + +------+ + | Care Department Sales Manager Name | Role | Phone | + +------+ + | Erin Forrester MD | PCP | | + +------+ + Encounter Details +--------+ + + + + | Date | Type | Department | Care Team | Description | +--------+ + + + + | 09/12/ | Orders Only | [facility] | Robel Ricci | | | 2015 | | CARDIOLOGY AARON | MD [address] | | | | | [address] | Kiran Singh [address] | | | | | [address] | [place] [address] | | | | | [address] | [phone] | | | | | [phone] | | | +--------+ + + + [...] | | | | | by ICA Buckner Read Only, | | | | | | ICA Kiran (502), | | | | | | legal editor Demetri Norton | | | | | | (253) on 10/08/2016 | | | | | | 8:28:04 AM | | | | + + + + + + + + | Specimen | + + | | + + + + + | Narrative | Performed At | + + + | Historically converted procedure from [facility] environment | EXTERNAL LAB | + + + + +---------+ + + | Performing | Address | City/State/Zipcode | Phone Number | | Organization | | | | + +---------+ + + | EXTERNAL LAB | | | | + +---------+ + + documented in this encounter Visit Diagnoses Not on filedocumented in this encounter"
--- OUTSIDE RECORDS SUMMARY | ~2020-06-30 | XMS | Encounter Summary ---
Demographics + + + | Address | [address] | | | [place] [address] | + + + | Home Phone [...] Providers + +------+ + | Care Director Of Land Acquisition Name | Role | Phone | + +------+ + | Erin Forrester MD | PCP | | + +------+ + Encounter Details +--------+ + + + + | Date | Type | Department | Care Team | Description | +--------+ + + + + | 12/06/ | Orders Only | [facility] | Conversion | | | 2017 | | CARDIOLOGY AARON | Transaction, | | | | | [address] | Provider Unknown | | | | | [address] | [phone] | | | | | [address] | | | | | | [phone] | | | +--------+ + + + [...]
--- OUTSIDE RECORDS SUMMARY | ~2020-06-30 | XMS | Encounter Summary ---
Demographics + + + | Address | [address] | | | [place] [address] | + + + | Home Phone [...] + + + | Author | [facility] | | | and [place] | + + + | Organization | [facility] | [...] Team Providers + +------+ + | Care Geophysical Prospecting Surveyor Name | Role | Phone | + +------+ + | Erin Forrester MD | PCP | | + +------+ + Encounter Details +--------+ + + + + | Date | Type | Department | Care Team | Description | +--------+ + + + + | 01/12/ | Orders Only | [facility] | Conversion | | | 2017 | | NEPHROLOGY [place] | Transaction, | | | | | [address] | Provider Unknown | | | | | [address] | [phone] | | | | | [address] | | | | | | [phone] | | | +--------+ + + + [...] - 1.030 | EXTERNAL | | | [place], | | | LAB | | | [...]
--- OUTSIDE RECORDS SUMMARY | ~2020-06-30 | XMS | Encounter Summary ---
Demographics + + + | Address | [address] | | | [place] [address] | + + + | Home Phone [...] Team Providers + +------+ + | Care Fan Blade Truer Name | Role | Phone | + [...] | | | | | | | MA | | | | | | | ESOPHAGOGAST | | | | | | | RODUODENOSCO | | | | | | | PY TRANSORAL | | | | | | | DIAGNOSTIC | | | | | | | MA EGD | | | | | | | TRANSORAL | | | | | | | BIOPSY | | | | | | | SINGLE/MULTI | | | | | | | PLE MA EGD | | | | | | | BALLOON | | | | | | | DILATION | | | | | | | ESOPHAGUS | | | | | | | <30 MM DIAM | | | | | | | MA | | | | | | | [...] + + + + | 02/08/ | [facility] | [facility] | Willow Colin MD | | | 2019 | Encounter | MED CTR OR PRE OP | [address] | | | | | [address] | [address], | | | | | [place] [address] | [place] [address] | | | | | [phone] | [phone] | | | | | | | [...] | cephalexin | | | 0 | /18/20 | | | (KEFLEX) 500 mg | | | | 19 | | | capsule | | | | | | + + + +---------+ + + | cephalexin | Take 1 capsule by | | 0 | //20 | | | (KEFLEX) 500 mg | [...] | ciprofloxacin | | | 0 | 07/20/ | | | (CIPRO) 250 mg | [...] [address] | [address] | [phone] | | [facility] | | [address] | | | - LABORATORY | | [...]
--- OUTSIDE RECORDS SUMMARY | ~2020-06-30 | XMS | Encounter Summary ---
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, | disease involving | | | | CLINICAL DECISION | Provider Unknown | coronary bypass | | | | [address] [facility] | | graft of tuscarora | | | | [place], [place] | (Fax) | heart with angina | | | | [phone] | Robel Ricci | pectoris ([facility]) | | | | [phone] | MD [address] | | | | | | [address] | | | | | | [place] [address] | | | | | | [phone] | | | | | | | [...] 10/31/151751 Date of Service: 10/31/151749 Status: Signed Side Laster: Karolyn Ronquillo RN (Registered Nurse) Pt discharged once discharge parameters were met. No signs of bleeding were noted upon dis continuation of TR band. Pt given discharge paperwork however left this behind. Pt VSS. P t denies pain. Pt discharged to home with spouse. onver zoe Transaction, Provider Unknown - 10/31/2015 1:58 PM PST Progress Notes by Allan Julio RPH at 10/31/15 9996 Author: Allan Julio RPH Service: (none) Author Type: Pharmacist Filed: 10/31/15 1002 Date of Service: 10/31/151357 Status: Signed Side Laster: Allan Julio RPH (Pharmacist) Renal Dosing Monitoring: [...] Date of Service: 10/31/15 1102 Status: Signed Side Laster: Alex Villegas MD (Physician) [facility] Service: Cardiology Pre-Operative History & Physical [...] 1133 Note Time: 10/18/15 0950 Status: Signed Side Laster: Robel Ricci DO (Physician) Expand All Collapse [...] DVT (deep venous thrombosis) ([facility]) Hx DVT, right leg, chronic venous insufficiency. On warfarin, managed by PCP. Arterial US, lower Ext, 10/09/2015: TDS, calcification of trifurcation vessels, mild-modera te disease in upper vessels. Diabetes mellitus, type 2 ([facility]) DM2, managed by PCP. F/U with TITA [...] 2 (two) times daily as need ed. 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
--- OUTSIDE RECORDS SUMMARY | ~2020-06-30 | XMS | Encounter Summary ---
Demographics + + + | Address | [address] | | | [place] [address] | + + + | Home Phone [...] Team Providers + +------+ + | Care Novelty Balloon Assembler And Packer Name | Role | Phone | + [...] | | | | and | | [address] | | | | | inflammatory | | [address] | | | | | reaction | | Rd [place], | | | | | due to | | [place] | | | | | internal | | [address] | | | | | right knee | | Phone: | | | | | prosthesis, | | [phone] | | | | | initial | | Fax: | | | | | encounter | | [phone] | +--------+--------+ + + + + Encounter [...] | | | [address] | [facility] | joint, subsequent | | | | Loop Physician's | [place], [place] | encounter (Primary | | | | [place], 3rd floor | [address] | Dx); [facility] | | | | [place], [place] | [phone] | (current) use of | | | | [address] | | antibiotics | | | | [phone] | | | +--------+---------+ + + + [...] ), Disp: 30 tablet, Rfl: 0 antiox. no.85-[id number]-[id number]-[id number]-rtl (I-CAPS) 280-10-2 mg oral capsule, Take 1 [...] Pt has no other follow-up needed at [facility] at this time so will contact his PCP to see if continued prescribing of cephalexin can be managed locally Abril Shields MD Infectious Diseases documented in this encounter Plan of Treatment Not on filedocumented as of this encounter Visit Diagnoses + + | Diagnosis | + + | Infection of prosthetic knee joint, subsequent encounter - Primary | + + | [facility] (current) use of antibiotics | + + documented in this encounter"
--- OUTSIDE RECORDS SUMMARY | ~2020-06-30 | XMS | Encounter Summary ---
Demographics + + + | Address | [address] | | | [place] [address] | + + + | Home Phone [...] Phone | + + +---------+ + | eBth Mas | ECON | Unknown | | + + +---------+ + Care Team Providers + +------+ + | Care Unemployment Examiner Name | Role | Phone | + +------+ + | Gilberto Estrada MD | PCP | | + +------+ + Reason for Visit + +--------+ + | Reason | Onset | Comments | | | Date | | + +--------+ + | RN Care Management | 07/09/ | Resumed care at home post DC from [facility] | | | 2017 | | + [...] at | | | | [address] | [facility] | home post DC from | | | | Loop Physician's | [place], [place] | [facility]); | | | | [place], 3rd floor | [address] | Infectious disease | | | | [place], [place] | [phone] | | | | | [address] | | | | | | [phone] | | | +--------+ + + + [...] encounter Miscellaneous Notes Telephone Encounter - Jaye Wicnhester RN - 07/09/2018 2:39 PM Luca, from [facility] , called to inform us that the patient was DC'd from [facility] yesterday and is back on service [...]
--- OUTSIDE RECORDS SUMMARY | ~2020-06-30 | XMS | Encounter Summary ---
Demographics + + + | Address | [address] | | | [place] [address] | + + + | Home Phone [...] Team Providers + +------+ + | Care Instructional Systems Specialist Name | Role | Phone | [...] | | | | Loop Physician's | [place], [place] | | | | | [place], [facility] floor | [address] | | | | | [place], [place] | [phone] | | | | | [address] | | | | | | [phone] | | | +--------+--------+ + + + [...]
--- OUTSIDE RECORDS SUMMARY | ~2020-06-30 | XMS | Encounter Summary ---
Demographics + + + | Address | [address] | | | [place] [address] | + + + | Home Phone [...] Providers + +------+ + | Care Diesel Crane Operator Name | Role | Phone | [...] | | | | | | | [place] | | | | | | | ESOPHAGOGAST | | | | | | | RODUODENOSCO | | | | | | | PY TRANSORAL | | | | | | | DIAGNOSTIC | | | | | | | NV EGD | | | | | | | TRANSORAL | | | | | | | BIOPSY | | | | | | | SINGLE/MULTI | | | | | | | PLE NV EGD | | | | | | | BALLOON | | | | | | | DILATION | | | | | | | ESOPHAGUS | | | | | | | <30 MM DIAM | | | | | | | [place] | | | | | | | [...] | | | | | [address] | [address] | | | | | [place] | [place] [address] | | | | | [address] | [phone] | | | | | [phone] | | | +--------+ + + + [...] EVALUATION Duane Mas 78 y.o. male 1940 [id number] Procedure(s): EGD DIL (N/A Mouth) Medical,anesthesia, drug, allergy histories reviewed, NPO status verified. ECG reviewed. Labs reviewed. (+) perioperative beta-afua/statin given/taken. . Review of Systems / Med History Anesthesia History EGD in 2017 - did well with TIVA. 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 (+) congestive heart failure. . Pulmonary [...]
--- OUTSIDE RECORDS SUMMARY | ~2020-06-30 | XMS | Encounter Summary ---
Demographics + + + | Address | [address] | | | [place] [address] | + + + | Home Phone [...] Team Providers + +------+ + | Care Baggage Screener Name | Role | Phone | + [...] | | | | Loop Phys[facility]'s | [place], [place] | | | | | [place], 3rd floor | [address] | | | | | [place], [place] | [phone] | | | | | [address] | | | | | | [phone] | | | +--------+ + + + [...]
--- OUTSIDE RECORDS SUMMARY | ~2020-06-30 | XMS | Encounter Summary ---
Demographics + + + | Address | [address] | | | [place] [address] | + + + | Home Phone [...] Providers + +------+ + | Care Outdoor Fitness Trainer Name | Role | Phone | [...] 2017 | Encounter | at [facility] | [address] | | | | | [address] | [place], [place] | | | | | [facility] [address] | [address] | | | | | [place], [place] | [phone] | | | | | [address] | | | | | | [phone] | | | +--------+ + + + [...] | | 0 | | | | no.77-[id number]-mghkoyq2r-[id number]-adg | mouth once daily. | | | [...]
--- OUTSIDE RECORDS SUMMARY | ~2020-06-30 | XMS | Encounter Summary ---
Demographics + + + | Address | [address] | | | [place] [address] | + + + | Home Phone [...] Team Providers + +------+ + | Care Impregnator Operator Name | Role | Phone | [...] [address] | | | | | [address] | [address] | | | | | Loop Physician's | [place], [place] | | | | | [place], [facility] floor | [address] | | | | | [place], [place] | [phone] | | | | | [address] | | | | | | [phone] | | | +--------+ + + + [...]
--- OUTSIDE RECORDS SUMMARY | ~2020-06-30 | XMS | Encounter Summary ---
Demographics + + + | Address | [address] | | | [place] [address] | + + + | Home Phone [...] Author + + + | Author | [facility] | + + + | Organization | [facility] | + + + | Address | Unknown | + + + | Phone | Unavailable | + + + Support + + +---------+ + | Name | Relationship | Address | Phone | + + +---------+ + | Beth Mas | ECON | Unknown | | + + +---------+ + Care Team Providers + +------+ + | Care Echocardiography Tech Name | Role | Phone | [...] | | | | Loop Physician's | [place], [place] | | | | | [place], [facility] floor | [address] | | | | | [place], [place] | [phone] | | | | | [address] | | | | | | [phone] | | | +--------+ + + + [...] [place], FLY - 06/30/2018 2:09 [facility] was informed that the patient left their facility on 06/26/18 because he met h is PT needs. We were not notified. Pt is now under the care of [facility] P [phone] F [phone] and [facility] P [phone] F [phone]. I called and spoke to Joslyn at [facility]. She stated that the patient had his PICC dress ing changed today but that they have not drawn labs as they do not have orders yet. She also said that [facility] is providing the IV cefazolin. I called Diana and spoke to Jaquelin, who said that this patient is not on service with them. She recommended calling the [facility] office in [place]. I called and spoke to Rosalind, pharmacist at [place] office who confirmed that they have the p atient on their service. Abx/PMSO have been faxed to both [facility] and [facility]. Jaye Winchester RN elephone Encounter - [...]
--- OUTSIDE RECORDS SUMMARY | ~2020-06-30 | XMS | Encounter Summary ---
Demographics + + + | Address | [address] | | | [place] [address] | + + + | Home Phone [...] Team Providers + +------+ + | Care Splitting Machine Operator Name | Role | Phone | + +------+ + PCP | Unavailable | + +------+ + Encounter Details +--------+ + + + + | Date | Type | Department | Care Team | Description | +--------+ + + + + | 10/08/ | Hospital | [facility] | Olaf Nicole | | | 1998 - | Encounter | [facility] MED CTR | MD [address] | | | | | CARDIAC TELEMETRY | [address] | | | 10/09/ | | [address] | [place] [address] | | | 2000 | | [place] | [phone] | | | | | [address] | | | | | | [phone] | | | +--------+ + + + [...]
--- OUTSIDE RECORDS SUMMARY | ~2020-06-30 | XMS | Encounter Summary ---
Demographics + + + | Address | [address] | | | [place] [address] | + + + | Home Phone | | + + + | Preferred Language | Unknown | + + + | Marital Status | Unknown | + + + | Mormonism Affiliation | PRO | + + + [...] Phone | + + +---------+ + | Beht Mas | ECON | Unknown | | + + +---------+ + Care Team Providers + +------+ + | Care Lathe Set Up Person Name | Role | Phone | [...] | | | | | [place], | | | | | | [place] [address] | | | +--------+--------+ + + + [...]
--- OUTSIDE RECORDS SUMMARY | ~2020-06-30 | XMS | Encounter Summary ---
Demographics + + + | Address | [address] | | | [place] [address] | + + + | Home Phone | | + + + | Preferred Language | Unknown | + + + | Marital Status | | + + + | Voodoo Affiliation | 1077 | + + + [...] Team Providers + +------+ + | Care Screen Printing Inspector Name | Role | Phone | + +------+ + | Erin Forrester MD | PCP | | + +------+ + Encounter Details +--------+ + + + + | Date | Type | Department | Care Team | Description | +--------+ + + + + | 02/12/ | Orders Only | [facility] | Mikal Calix MD | | | 2018 | | NEPRHOLOGY AARON | [address] | | | | | [address] | [address] [place], [place] | | | | | [address] [place], [place] | [address] | | | | | [address] | | | | | | [phone] | | | +--------+ + + + [...]
--- OUTSIDE RECORDS SUMMARY | ~2020-06-30 | XMS | Encounter Summary ---
Demographics + + + | Address | [address] | | | [place] [address] | + + + | Home Phone [...] Team Providers + +------+ + | Care Groundskeeper Porter Name | Role | Phone | + +------+ + PCP | Unavailable | + +------+ + Encounter Details +--------+ + + + + | Date | Type | Department | Care Team | Description | +--------+ + + + + | 12/30/ | Hospital | Dermatopathology | | | | 2016 | Encounter | [address] | | | | | | Mailcode: CH16D | | | | | | [facility] | | | | | | and Healing, | | | | | | Building [address], 5th | | | | | | Floor [place], [place] | | | | | | [address] | | | | | | [phone] | | | +--------+ + + + [...] [facility] | [address] | [place] [address] | | | DERMATOPATHOLOGY | [address] | | | + + + + + | [facility] | Mary [address] | [place] [address] | | | DERMATOPATHOLOGY | [address] | | | + + + + + documented in this encounter Visit Diagnoses Not on filedocumented in this encounter"
--- OUTSIDE RECORDS SUMMARY | ~2020-06-30 | XMS | Encounter Summary ---
Demographics + + + | Address | [address] | | | [place] [address] | + + + | Home Phone [...] Team Providers + +------+ + | Care Dub Room Engineer Name | Role | Phone | [...] [address] Jerome | | | | | [address] | [address] | | | | | Loop Physician's | [place], [place] | | | | | [place], [facility] floor | [address] | | | | | [place], [place] | [phone] | | | | | [address] | | | | | | [phone] | | | +--------+ + + + [...]
--- OUTSIDE RECORDS SUMMARY | ~2020-06-30 | XMS | Encounter Summary ---
Demographics + + + | Address | [address] | | | [place] [address] | + + + | Home Phone [...] + + + | Author | [facility] | + + + | Organization | [facility] | + + + | Address | Unknown | + + + | Phone | Unavailable | + + + Support + + +---------+ + | Name | Relationship | Address | Phone | + + +---------+ + | Beth Mas | ECON | Unknown | | + + +---------+ + Care Team Providers + +------+ + | Care Vp Integration Name | Role | Phone | + [...] | | | | Loop Physician's | [place], [place] | | | | | [place], [facility] floor | [address] | | | | | [place], [place] | [phone] | | | | | [address] | | | | | | [phone] | | | +--------+--------+ + + + [...]
--- OUTSIDE RECORDS SUMMARY | ~2020-06-30 | XMS | Encounter Summary ---
Demographics + + + | Address | [address] | | | [place] [address] | + + + | Home Phone | | + + + | Preferred Language | Unknown | + + + | Marital Status | | + + + | Christianity Affiliation | 1077 | + + + [...] Team Providers + +------+ + | Care Umbrella Repairer Name | Role | Phone | [...] | | | | | | PLE [facility] EGD | | | | | [...] | | | | | [address] | [address] [place] [address] | | | | | [place] | [address] | | | | | [address] | [phone] | | | | | [phone] | | | +--------+ + + + [...] explained and consent obtained. Patient transported to [facility], | | | 7 | [...] 02/10/19 1400 by | | eral | iigc-hzu-cfislz catheter system; | Neyda Johnson RN | [...] Duane L Maxwell 78 y.o. male 1940 [id number] Procedure(s) EGD WITH DILITATION (N/A Mouth) Cooperates? [...] signed by Thang Sarmiento MD 02/10/2019 14:13 [facility] nesthesia Preprocedure Evaluation - Thang Sarmiento MD - 2018 7:36 AM PDT ANESTHESIA PREANESTHESIA EVALUATION Duane Mas 78 y.o. 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 (+) congestive heart failure. . Pulmonary [...] situ - MEDTRONIC Class I, BMI 30-34.9 alf current use of anticoagulant - COUMADIN Beta Blockers - Daily Use Diabetes mellitus, type II - ORAL Control Mxtal-uy-Jlonaa lying flat DAIJA II Inhibitors - Daily Use Chronic renal insufficiency, stage 4 (severe) . Electronically Signed by: Thang Sarmiento MD ESi date/time: 02/10/2019 7:36 documented in [facility] s encounter Miscellaneous Notes Addendum Note - Thang Sarmiento MD - 02/10/2019 2:50 PM PDTFormatting of this note mi ght be different from the original. Addendum created 02/10/19 0530 by Thang Sarmiento MD SmartForm saved documented [...]
--- OUTSIDE RECORDS SUMMARY | ~2020-06-30 | XMS | Encounter Summary ---
Demographics + + + | Address | [address] | | | [place] [address] | + + + | Home Phone | | + + + | Preferred Language | Unknown | + + + | Marital Status | Unknown | + + + | Gnosticist Affiliation | PRO | + + + [...] Providers + +------+ + | Care Senior Internal Auditor Name | Role | Phone | [...] | | | | Loop Physician's | [place], [place] | | | | | Pavilion, 3rd floor | [address] | | | | | [place], [place] | [phone] | | | | | [address] | | | | | | [phone] | | | +--------+ + + + [...] Celia Hawthorne RN - 07/01/2018 1:36 PM [facility] check in - Transitional Care Management Note ASSESSMENT Spoke with Beth Mas, of patient who is , at [phone]. Beth stated that infusi ons of cefazolin [...] without provider involvement . CELIA HAWTHORNE RN [facility] INFECTIOUS DISEASE PPV INFECTIOUS DISEASES AT [facility] 3RD FLOOR [address] [place] [address] documented in this enc ounter Plan of Treatment Not on filedocumented as of this encounter Visit Diagnoses Not on filedocumented in this encounter"
--- OUTSIDE RECORDS SUMMARY | ~2020-06-30 | XMS | Encounter Summary ---
Demographics + + + | Address | [address] | | | [place] [address] | + + + | Home Phone [...] Providers + +------+ + | Care Supervisor Real Estate Office Name | Role | Phone | + [...] | 2018 | Event | [facility] | [address] | | | | | Jr [facility] | [facility] | | | | | Hospital Admitting | [place], [place] | | | | | Desk Located on the | [address] | | | | | 9th floor | [phone] | | | | | [place], [place] | | | | | | [address] | | | +--------+ + + + [...]
--- OUTSIDE RECORDS SUMMARY | ~2020-06-30 | XMS | Encounter Summary ---
Demographics + + + | Address | [address] | | | [place] [address] | + + + | Home Phone [...] Team Providers + +------+ + | Care Graphics Specialist Name | Role | Phone | [...] 2019 | | [address] | [address] | | | | | [place] [address] | [place] | | | | | [address] | [place] | | | | | [phone] | [address] | | | | | | [phone] | | | | | | | [...] | | | | using the MDRD IDOR | | | | | | traceable [...]
--- OUTSIDE RECORDS SUMMARY | ~2020-06-30 | XMS | Encounter Summary ---
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 | 2 diabetes mellitus | | | | [address] [place], [place] | [place] [address] | without | | | | [address] | | complications (HCC); | | | | [phone] | | Chronic kidney | | | [...]
--- OUTSIDE RECORDS SUMMARY | ~2020-06-30 | XMS | Encounter Summary ---
Demographics + + + | Address | [address] | | | [place] [address] | + + + | Home Phone [...] Team Providers + +------+ + | Care Driver Education Road Instructor Name | Role | Phone | [...] + + | 09/29/ | Telephone | [facility] | Kristie De Los Santos ANP | Patient Concerns | | 2019 | | CARDIOLOGY [place] | [address] | | | | | [address] | [place], [place] | | | | | [place], [place] | [address] | | | | | [address] | | | | | | [phone] | | | +--------+ + + + [...]
--- OUTSIDE RECORDS SUMMARY | ~2020-06-30 | XMS | Encounter Summary ---
Demographics + + + | Address | [address] | | | [place] [address] | + + + | Home Phone [...] Team Providers + +------+ + | Care Learning Coordinator Name | Role | Phone | [...] [place] | [facility] | | | | | Loop Physician's | [place], [place] | | | | | [place], [address] [place] [address] | [address] | | | | | [place], [place] | [phone] | | | | | [address] | | | | | | [phone] | | | +--------+ + + + [...] received orders. Confirmed with RN KARLA at [facility] alth that they will pull patient's [...]
--- OUTSIDE RECORDS SUMMARY | ~2020-06-30 | XMS | Encounter Summary ---
Demographics + + + | Address | [address] | | | [place] [address] | + + + | Home Phone [...] + + + | Author | [facility] | | | and [place] | + + + | Organization | [facility] | | [...] Team Providers + +------+ + | Care Van Owner Operator Name | Role | Phone | + +------+ + PCP | Unavailable | + +------+ + Encounter Details +--------+ + + + + | Date | Type | Department | Care Team | Description | +--------+ + + + + | 09/16/ | Hospital [facility] | Olaf Nicole | | | 2000 | Encounter | HEART MED CTR | [address] | | | | | GENERIC CONV DEPT | [address] | | | | | [address] | [place] [address] | | | | | [place] | [phone] | | | | | [address] | | | | | | [phone] | | | +--------+ + + + [...]
--- OUTSIDE RECORDS SUMMARY | ~2020-06-30 | XMS | Encounter Summary ---
Demographics + + + | Address | [address] | | | [place] [address] | + + + | Home Phone [...] Team Providers + +------+ + | Care Share Holder Name | Role | Phone | + +------+ + PCP | Unavailable | + +------+ + Encounter Details +--------+ + + + + | Date | Type | Department | Care Team | Description | +--------+ + + + + | 09[facility]12/ | Hospital [facility] | Olaf Nicole | | | 1997 - | Encounter | [facility] MED CTR | MD [address] [place] | | | | | CARDIAC TELEMETRY | [address] | | | 09/14/ | | [address] | [place] [address] | | | 1999 | | [place] | [phone] | | | | | [address] | | | | | | [phone] | | | +--------+ + + + [...]
--- OUTSIDE RECORDS SUMMARY | ~2020-06-30 | XMS | Encounter Summary ---
Demographics + + + | Address | [address] | | | [place] [address] | + + + | Home Phone | | + + + | Preferred Language | Unknown | + + + | Marital Status | Unknown | + + + | Denominational Affiliation | PRO | + + + [...] Providers + +------+ + | Care Warehouse Packer Name | Role | Phone | [...] | | | [address] | [facility] | orders) | | | | Loop Physician's | [place], [place] | | | | | [place], [facility] floor | [address] | | | | | [place], [place] | [phone] | | | | | [address] | | | | | | [phone] | | | +--------+ + + + [...]
--- OUTSIDE RECORDS SUMMARY | ~2020-06-30 | XMS | Encounter Summary ---
Demographics + + + | Address | [address] | | | [place] [address] | + + + | Home Phone [...] | [address] | [address] [facility] | | | | | [place] [address] | [address] | | | | | [address] | [address] | | | | | [phone] | | | +--------+ + + + [...] 1.030 | EXTERNAL | | | [place], | | | LAB | | | [...]
--- OUTSIDE RECORDS SUMMARY | ~2020-06-30 | XMS | Clinical Summary ---
Demographics + + + | Address | [address] | | | [place] [address] | + + + | Home Phone [...] Team Providers + +------+ + | Care Measuring Clerk Name | Role | Phone | [...] + + +---------+------+------+-------+ | nystatin | nystatin [id number] | | 0 | | | Activ [...] | | + + + +---------+------+------+-------+ | [place]-3 Fatty | [place] 3 | | 0 | | | Activ | | Acids (OMEGA 3 PO) | | | | | | e | + + + +---------+------+------+-------+ | [place]-3 Fatty | Take by mouth two | [...] | | + + + +---------+------+------+-------+ | [place]-3 Fatty | Take 1,200 mg by | [...] + + + | 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 Pulse generator: TVplus. Model number [id number], | | serial number [id number]. Placed because of symptomatic sinus | | [...] block.2. RV | | lead: Medtronic, model #859625, serial number [id number]. RA | | lead: Medtronic, model #538368, serial number [id number]. This | | is an Medtronic MRI [...] is planning to | | go to [place] after [place]. He is on warfarin at [...] distal | | inferior-apical ischemia, LVEF 53%.14-Day Physician Office Secretary, | | 10/10/2016: sinus rhythm, with frequent [...] | | 2017 | -500 | | [id number]: Qty: 1 on | | | | | | /[id number] | | 09/07/2013 by Aris, | | | | | | 500 | | Drew Mendoza MD | | | | | | /[id number] | + +------+------+ +--------+--------+--------+ | Patella Triathlon 38mm 11mm | | | | | 04/25/ | 5551-G | | Height - [id number]: | | | | | 2017 | [...] | | 2017 | -402 | | [id number]: Qty: 1 on | | | | [...] - | | | | | | /[id number] | | [id number]: Qty: 1 on | | | | | | 001 | | 09/07/2013 by Aris, | | | | | | /[id number] | | Drew Mendoza MD | | | | | | 1 | + +------+------+ +--------+--------+--------+ | Insert Tibial Ricardo Rivers | | | | | 01/23/ | 5531-G | | 5 13mm - [id number]: | | | | | 2017 | [...] +--------+ +---------+--------+ | CIGNA | CIGNA | [id number] | 10/27/19 | [phone] | | Indemn [...] +--------+ +---------+--------+ | MEDICARE | MEDICA | [id number] | 01/26/20 | [phone] | | Medica | | | RE | | 15-Pre | 5 | | re | | | PART A | | sent | | | | | | AND B | | | | | | + +--------+ +--------+ +---------+--------+ | MEDICARE | MEDICA | [id number] | 04/26/20 | [phone] | | Medica | | | RE | | 03-Pre | 5 | | re | | | PART A | | sent | | | | | | AND B | | | | | | + +--------+ +--------+ +---------+--------+ | CIGNA | CIGNA | [id number] | 10/27/19 | [phone] | | Indemn [...] Person | Self | [birth year] | [address] | | | al/Fam | | 1940 | [phone] | [place] [address] | | | afshan | | | 4 (Home) | | + +--------+ +--------+ + + | Duane Mas | Person | Self | [birth year] | | [address] | | | al/Fam | | 1940 | [phone] | [place] [address] | | | afshan | | | 4 (Home) | | + +--------+ +--------+ + + | Duane Mas | Person | Self | [birth year] | | [address] | | | al/Fam | | 1940 | [phone] | [place] [address] | | | afshan | | | 4 (Home) | | + +--------+ +--------+ + + Advance Directives + + + + + | Type | Date Recorded | Patient | Explanation | | | | Survey Technician | | + + + + + | Power of | | | | | Policy Writer | | | | + + + + + | Advance | 07/31/2017 10:59 | | | | Directive | AM | | | + + + + +
--- OUTSIDE RECORDS SUMMARY | ~2020-06-30 | XMS | Encounter Summary ---
Demographics + + + | Address | [address] | | | [place] [address] | + + + | Home Phone [...] Team Providers + +------+ + | Care Operating Room Manager Name | Role | Phone | [...] floor | | | | | | [place], [place] | | | | | | [address] | | | +--------+ + + + [...]
--- OUTSIDE RECORDS SUMMARY | ~2020-06-30 | XMS | Encounter Summary ---
Demographics + + + | Address | [address] | | | [place] [address] | + + + | Home Phone [...] Team Providers + +------+ + | Care Patient Navigator Name | Role | Phone | + +------+ + PCP | Unavailable | + +------+ + Encounter Details +--------+ + + + + | Date | Type | Department | Care Team | Description | +--------+ + + + + | 05/18/ | Hospital | [facility] | Olaf Nicole | | | 1998 - | Encounter | [facility] | MD Amy [address] | | | | | CARDIAC TRANSPLANT | [address] | | | 05/19/ | | [address] | [place] [address] | | | 2000 | | [place] | [phone] | | | | | [address] | | | | | | [phone] | | | +--------+ + + + [...]
--- OUTSIDE RECORDS SUMMARY | ~2020-06-30 | XMS | Encounter Summary ---
Demographics + + + | Address | [address] | | | [place] [address] | + + + | Home Phone [...] Team Providers + +------+ + | Care Marketing Information Coordinator Name | Role | Phone | + +------+ + PCP | Unavailable | + +------+ + Encounter Details +--------+ + + + + | Date | Type | Department | Care Team | Description | +--------+ + + + + | 10/24/ | Hospital | [facility] | Conversion | [facility] ([facility]) | | 2016 - | Encounter | MEDICAL CENTER | Transaction, | | | | | CLINICAL DECISION | Provider Unknown | | | 10/25/ | | [address] [facility] | | | | 2016 | | [place] | | | | | | [address] | Robel Ricci Ken | | | | | [phone] | MD [address] | | | | | | [address] | | | | | | [place] [address] | | | | | | [phone] | | | | | | | [...] 1742 Date of Service: 10/25/16956 Status: Signed Gaming Associate: Mikal Ha MD (Physician) [facility] Service: Cardiology Discharge Summary Date of Admission: [...] Date of Service: 10/24/16 1631 Status: Signed Gaming Associate: Ariana Johnson RN (Registered Nurse) Arm sling applied to left arm. docume nted in this encounter H&P Notes Mikal Ha - 10/24/2016 1:01 PM PST H&P by Mikal Ha MD at 10/24/16 1301 Author: Mikal Ha MD Service: Cardiology Author Type: Physician Filed: 10/24/16 1301 Date of Service: 10/24/16 1301 Status: Signed Gaming Associate: Mikal Ha MD (Physician) [facility] Service: Cardiology Pre-Operative History & [...] this, however is planning to go to [place] after . He is on warf mustapha [...] mild distal inferior-apical ischemia, LVEF 53%. 14-Day Forestry Pilot, 10/10/2016: sinus rhythm, with frequent PVC's, no VT, however, 1st degree AVB, 2nd degree AVB (Type 1 and 2), 3.5sec asystole, bundle branch block. ECG, 09/12/2016: sinus rhythm, 78bpm, 1st degree AVB, old inferior DC, RBBB/LAFB. Essential hypertension Hypertension, controlled, continue current [...] this, however is planning to go to [place] after . He is on warfarin at [...] topically 2 (two) times daily as needed. [place]-3 Fatty Acids (FISH OIL) 1200 MG CAPS [...] Date of Service: 10/25/16 1027 Status: Signed Gaming Associate: Amy Broderick RN (Registered Nurse) Daily care [...] 10/24/162316 Date of Service: 10/24/162316 Status: Signed Gaming Associate: Erick Ramos RN (Registered Nurse) No falls [...] 10/24/162315 Date of Service: 10/24/162315 Status: Signed Gaming Associate: Erick Ramos RN (Registered Nurse) Daily care [...] | | | Fingerstick | performed at [facility];[address] | | LAB | | | | [address];[place], [place] | | | | | | [address] | | | | + + + [...] EXTERNAL LAB | | Testing performed at [facility];[address] [place] [address];[place] [address] MRSA PCR | | | NEGATIVE Testing performed at | | | [facility];[address] [place] [address];[place] [address] | | + + + + +---------+ [...] | | | | | performed at [facility] | | | | | | [address];[place], [place] | | | | | | [address] | | | | + + + [...] EXTERNAL | | | | performed at [facility];[address] | K/uL | LAB | | | | [address];[place] | | | | | | [address] | | | | + + + + + + | Non- | 5.01Comment: Testing | 4.20 - 5.70 | EXTERNAL | | | Red Blood | performed at [facility];[address] | M/uL | LAB | | | Cells | [address];[place] | | | | | Counted | [address] | | | | + + + + + + | Hemoglobin | 15.0Comment: Testing | 13.2 - 17.0 | EXTERNAL | | | | performed at [facility];888 | g/dL | LAB | | | | [address];[place] | | | | | | [address] | | | | + + + + + + | Hematocrit, | 44.8Comment: Testing | 39.0 - 50.0 % | EXTERNAL | | | POC | performed at [facility];[address] | | LAB | | | | [address];[place] | | | | | | [address] | | | | + + + + + + | MCV | 89.6Comment: Testing | 80.0 - 100.0 fl | EXTERNAL | | | | performed at [facility];[address] | | LAB | | | | [address];[place] | | | | | | [address] | | | | + + + + + + | MCH | 29.9Comment: Testing | 27.0 - 34.0 pg | EXTERNAL | | | | performed at [facility];[address] | | LAB | | | | [address];[place] | | | | | | [address] | | | | + + + + + + | MCHC | 33.4Comment: Testing | 32.0 - 35.5 | EXTERNAL | | | | performed at [facility];888 | g/dL | LAB | | | | [address];[place] | | | | | | [address] | | | | + + + + + + | RDW-CV | 50.3Comment: Testing | 37 - 53 fl | EXTERNAL | | | | performed at [facility];[address] | | LAB | | | | [address];[place] | | | | | | [address] | | | | + + + + + + | Platelet | 111 (L)Comment: Testing | 150 - 400 K/uL | EXTERNAL | | | Count | performed at [facility];[address] | | LAB | | | Plasma | [address];[place] | | | | | | [address] | | | | + + + + + + | MPV | 9.1Comment: Testing | fl | EXTERNAL | | | | performed at [facility];[address] | | LAB | | | | [address];[place] | | | | | | [address] | | | | + + + + + + | Differentia | AUTOMATEDComment: | | EXTERNAL | | | l Type | Testing performed at | | LAB | | | | [place];[address] | [address];[place] [address] | | | | + + + + + + | % Segmented | 63.78Comment: Testing | % | EXTERNAL | | | | performed at [facility];[address] | | LAB | | | Neutrophils | [address];[place] | | | | | | [address] | | | | + + + + + + | % | 24.36Comment: Testing | % | EXTERNAL | | | Lymphocytes | performed at [facility];[address] | | LAB | | | | [address];[place] | | | | | | [address] | | | | + + + + + + | % Monocytes | 8.57Comment: Testing | % | EXTERNAL | | | | performed at [facility];[address] | | LAB | | | | [address];[place] | | | | | | [address] | | | | + + + + + + | % | 2.68Comment: Testing | % | EXTERNAL | | | Eosinophils | performed at [facility];[address] | | LAB | | | | [address];[place] | | | | | | [address] | | | | + + + + + + | % Basophils | 0.61Comment: Testing | % | EXTERNAL | | | | performed at [facility];[address] | | LAB | | | | [address];[place] | | | | | | [address] | | | | + + + + + + | Absolute | 5.19Comment: Testing | 1.90 - 7.40 | EXTERNAL | | | Segmented | performed at [facility];[address] | K/uL | LAB | | | Neutrophils | [address];[place] | | | | | | [address] | | | | + + + + + + | Absolute | 1.98Comment: Testing | 1.00 - 3.90 | EXTERNAL | | | Lymphocytes | performed at [facility];[address] | K/uL | LAB | | | | [address];[place] | | | | | | [address] | | | | + + + + + + | Absolute | 0.70Comment: Testing | 0.00 - 0.80 | EXTERNAL | | | Monocytes | performed at [facility];[address] | K/uL | LAB | | | | [address];[place] | | | | | | [address] | | | | + + + + + + | Absolute | 0.22Comment: Testing | 0.00 - 0.50 | EXTERNAL | | | Eosinophils | performed at [facility];[address] | K/uL | LAB | | | | [address];[place] | | | | | | [address] | | | | + + + + + + | Absolute | 0.05Comment: Testing | 0.00 - 0.10 | EXTERNAL | | | Basophils | performed at [facility];[address] | K/uL | LAB | | | | [address];[place] | | | | | | [address] | | | | + + + [...] EXTERNAL | | | | performed at [facility];[address] | mmol/L | LAB | | | | [address];[place] | | | | | | [address] | | | | + + + + + + | K | 3.9Comment: Testing | 3.5 - 4.9 | EXTERNAL | | | | performed at [facility];888 | mmol/L | LAB | | | | [address];[place] | | | | | | [address] | | | | + + + + + + | Cl | 103Comment: Testing | 99 - 109 mmol/L | EXTERNAL | | | | performed at [facility];[address] | | LAB | | | | [address];[place] | | | | | | [address] | | | | + + + + + + | CO2 | 32Comment: Testing | 23 - 32 mmol/L | EXTERNAL | | | | performed at [facility];[address] | | LAB | | | | [address];[place] | | | | | | [address] | | | | + + + + + + | Anion Gap | 9Comment: Testing | 5 - 20 mmol/L | EXTERNAL | | | | performed at [facility];[address] | | LAB | | | | [address];[place] | | | | | | [address] | | | | + + + + + + | Glucose, | 121 (H)Comment: Testing | 65 - 99 mg/dL | EXTERNAL | | | Fasting | performed at [facility];[address] | | LAB | | | | [address];[place] | | | | | | [address] | | | | + + + + + + | BUN | 24Comment: Testing | 8 - 25 mg/dL | EXTERNAL | | | | performed at [facility];[address] | | LAB | | | | [address];[place] | | | | | | [address] | | | | + + + + + + | Creatinine | 1.2Comment: Testing | 0.70 - 1.30 | EXTERNAL | | | | performed at [facility];[address] | mg/dL | LAB | | | | [address];[place] | | | | | | [address] | | | | + + + + + + | BUN/Creatin | 20Comment: Testing | | EXTERNAL | | | ine Ratio | performed at [facility];[address] | | LAB | | | | [address];[place] | | | | | | [address] | | | | + + + + + + | Calcium | 8.7Comment: Testing | 8.5 - 10.5 | EXTERNAL | | | | performed at [facility];888 | mg/dL | LAB | | | | [address];[place] | | | | | | [address] | | | | + + + [...] | | | | | | at [facility];[address] [place] [address] | | | | | | [facility];[place] [address] | | | | + + + [...]
--- OUTSIDE RECORDS SUMMARY | ~2020-06-30 | XMS | Encounter Summary ---
Demographics + + + | Address | [address] | | | [place] [address] | + + + | Home Phone [...] Providers + +------+ + | Care Senior Engineering Tech Name | Role | Phone | + +------+ + PCP | Unavailable | + +------+ + Encounter Details +--------+ + + + + | Date | Type | Department | Care Team | Description | +--------+ + + + + | 09/03/ | Hospital | [facility] | Conversion | | | 2012 | Encounter | [facility] | Transaction, | | | | | CLINIC [address] | Provider Unknown | | | | | [place], [place] | | | | | | [address] | (Fax) | | | | | [phone] | | | +--------+ + + + [...] 09/03/131419 Date of Service: 09/03/131419 Status: Signed Rug Clipper: Manasa Andrade RN (Registered Nurse) Uses abimael [...] EXTERNAL LAB | | Testing performed at [facility];[address] [place] [address];[place] [address] MRSA PCR | | | NEGATIVE Testing performed at | | | [facility];[address] [place] [address];[place] [address] | | + + + + +---------+ + + | Performing | Address | City/State/Zipcode | Phone Number | | Organization | | | | + +---------+ + + | EXTERNAL LAB | | | | + +---------+ + + documented in this encounter Visit Diagnoses Not on filedocumented in this encounter"
--- OUTSIDE RECORDS SUMMARY | ~2020-06-30 | XMS | Encounter Summary ---
Demographics + + + | Address | [address] | | | [place] [address] | + + + | Home Phone [...] Providers + +------+ + | Care Chief Juvenile Probation Officer Name | Role | Phone | [...] + + | 03/01/ | Telephone | [facility] | Kristie De Los Santos ANP | Device Check | | 2020 | | [facility] [place] | [address] | | | | | [address] | [place], [place] | | | | | [place], [place] | [address] | | | | | [address] | | | | | | [phone] | | | +--------+ + + + [...]
--- OUTSIDE RECORDS SUMMARY | ~2020-06-30 | XMS | Encounter Summary ---
Demographics + + + | Address | [address] | | | [place] [address] | + + + | Home Phone [...] Team Providers + +------+ + | Care Geologist Petroleum Name | Role | Phone | + [...] | | | | Loop Physician's | [place], [place] | | | | | Pavilion, 3rd floor | [address] | | | | | [place], [place] | [phone] | | | | | [address] | | | | | | [phone] | | | +--------+ + + + [...] Cottrell Ma - 06/24/2018 12:16 PM PDTThis [facility] into the [facility] system of care. Please contact [facility] ID at phone: [phone]; fa x: [phone] with any questions or concerns regarding this [...] sh e is fine w/ coming to [place] twice in a week as there were unsuccessful attempts at setti ng up joint appt. Care Coordination issues needing clarification: none when asked. elephone Encounter - Layne Huang - 06/18/2018 4:10 PM PDTDr. Rinukwilliam only sees pts at [facility] on '. Could a provide r see the pt as a joint on , 07/23? elephone Encounter - Jaye Winchester RN - 06/17/2018 1:05 PM PDTFormatting o f this note might be different from the original. 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 During t hat time,we will cooridnate so that he may follow up with ID/OPAT in regards to his treatmen t. He will be discharged to [facility] to receive inpatient therapy and OPAT. Recommendations: 1. Change Cefazolin 2g IV q8 hours, with renal adjustments as required 2. Tentative duration of Cefazolin will be 6 weeks from the time of surgery (SOT: 06/12 - [place] T: 07/24) 3. Discussed with patient that OPAT can cont. at [facility]. If patient is discharged fr [...]
--- OUTSIDE RECORDS SUMMARY | ~2020-06-30 | XMS | Encounter Summary ---
Demographics + + + | Address | [address] | | | [place] [address] | + + + | Home Phone [...] Providers + +------+ + | Care Retail Service Representative Name | Role | Phone | + +------+ + PCP | Unavailable | + +------+ + Encounter Details +--------+ + + + + | Date | Type | Department | Care Team | Description | +--------+ + + + + | 09/29/ | Hospital [facility] | Zeb Giang | | | [facility] - | Encounter | [facility] | [address] [place] | | | | | CARDIAC TELEMETRY | [address] [place], [place] | | | 10/04/ | | [address] | [address] | | | 2000 | | [place] | | | | | | [address] | | | | | | [phone] | | | +--------+ + + + [...]
--- OUTSIDE RECORDS SUMMARY | ~2020-06-30 | XMS | Encounter Summary ---
Demographics + + + | Address | [address] | | | [place] [address] | + + + | Home Phone [...] Team Providers + +------+ + | Care English As A Second Language Teacher Name | Role | Phone [...] floor | | | | | | [place], [place] | | | | | | [address] | | | +--------+ + + + [...]
--- OUTSIDE RECORDS SUMMARY | ~2020-06-30 | XMS | Encounter Summary ---
Demographics + + + | Address | [address] | | | [place] [address] | + + + | Home Phone [...] Team Providers + +------+ + | Care Automotive Professional Name | Role | Phone | [...] | | | | and | | [address] | | | | | inflammatory | | [address] | | | | | reaction | | [address] [place], | | | | | due to | | [place] | | | | | internal | | [address] | | | | | right knee | | Phone: | | | | | prosthesis, | | [phone] | | | | | initial | | Fax: | | | | | encounter | | [phone] | +--------+--------+ + + + + Encounter [...] | | | Loop Physician's | [facility] [place] | subsequent encounter | | | | [place], 3rd floor | [address] | (Primary Dx); Long | | | | [place], [place] | [phone] | term (current) use | | | | [address] | | of antibiotics | | | | [phone] | | | +--------+---------+ + + + [...] Take by mouth., Disp: , Rfl: antiox. no.[id number] (I-CAPS) 280-10-2 mg oral capsule, Take 1 [...] locally Abril Shields MD Infectious Diseases p [phone] documented in this encounter Plan of Treatment Not on filedocumented as of this encounter Visit Diagnoses + + | Diagnosis | + + | Infection associated with internal right knee prosthesis, subsequent encounter - | | Primary | + + | intermediate designer (current) use of antibiotics | + + documented in this encounter
--- OUTSIDE RECORDS SUMMARY | ~2020-06-30 | XMS | Encounter Summary ---
Demographics + + + | Address | [address] | | | [place] [address] | + + + | Home Phone [...] Team Providers + +------+ + | Care Tail Board Worker Name | Role | Phone | [...] Jerome | | | | | Jr [facility] | [address] | | | | | Hospital Admitting | [place], [place] | | | | | Desk Located on the | [address] | | | | | 9th floor | [phone] | | | | | [facility] [place] | | | | | | [address] | Princess Ward MD | | | | | | [address] | | | | | | [place], | | | | | | [place] [address] | | | | | | [phone] | | | | | | | [...] Line | Standard; Left; 20g; 06/12/18; | SLITTER CUT OFF OPERATOR | | | | 1617; Per order | | | +--------+ + + + | Periph | 06/12/18; 1323; Right; Wrist; 20 | 06/12/18 1323 by | 06/14/181999 by | | eral | g; 06/14/18; 1999 | Robel Page, | Gabriel Zapata RN | | IV | | SLITTER CUT OFF OPERATOR | | +--------+ + + + | [...] be different from the original. Duane Mas [id number] Allergies Allergen Reactions Sulfa (Sulfonamide Antibiotics) Rash [...] e different from the original. 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
--- OUTSIDE RECORDS SUMMARY | ~2020-06-30 | XMS | Encounter Summary ---
Demographics + + + | Address | [address] | | | [place] [address] | + + + | Home Phone [...] Team Providers + +------+ + | Care Drier Attendant Name | Role | Phone | [...] | | | | Loop [facility] | [place], [place] | | | | | [place], 3rd floor | [address] | | | | | [place], [place] | [phone] | | | | | [address] | | | | | | [phone] | | | +--------+ + + + [...] Jaye Winchester RN - 06/24/2018 9:43 AM [facility] check in - Transitional Care Management Note ASSESSMENT Spoke with nurse Aguilera at [facility] at [phone]. Verified fax number: [phone] She stated that infusions of Cefazolin 2gm [...] updated lab orders to include CRP to [phone]. NURSING OUTCOME EVALUATION Previous nursing concern(s): no [...] completed without provider involvement Jaye Winchester RN [facility] AT [facility] 3RD FLOOR [address] [place] [address] documented in this en counter Plan of Treatment Not on filedocumented as of this encounter Visit Diagnoses Not on filedocumented in this encounter"
--- OUTSIDE RECORDS SUMMARY | ~2020-06-30 | XMS | Encounter Summary ---
Demographics + + + | Address | [address] | | | [place] [address] | + + + | Home Phone [...] Team Providers + +------+ + | Care Mill Tender Second Operator Name | Role | Phone | [...] [address] | | | | | [address] | [address] | | | | | Loop [facility] | [place], [place] | | | | | [place], [facility] floor | [address] | | | | | [place], [place] | [phone] | | | | | [address] | | | | | | [phone] | | | +--------+ + + + [...]
--- OUTSIDE RECORDS SUMMARY | ~2020-06-30 | XMS | Encounter Summary ---
Demographics + + + | Address | [address] | | | [place] [address] | + + + | Home Phone [...] Team Providers + +------+ + | Care Workshop Manager Name | Role | Phone | [...] | | | | Loop [facility] | [place], [place] | | | | | Pavilion, 3rd floor | [address] | | | | | [place], [place] | [phone] | | | | | [address] | | | | | | [phone] | | | +--------+ + + + [...] 07/27/2018 9:17 AM PDTSpoke with Cierra fernando [facility] [phone] and she confirmed that the patient's PICC line is being pulled t his morning. I will call back to for confirmation this afternoon. documented in this encounter Plan of Treatment Not on filedocumented as of this encounter Visit Diagnoses Not on filedocumented in this encounter"
--- OUTSIDE RECORDS SUMMARY | ~2020-06-30 | XMS | Encounter Summary ---
Demographics + + + | Address | [address] | | | [place] [address] | + + + | Home Phone [...] Providers + +------+ + | Care Clinical Material Handler Name | Role | Phone | + +------+ + PCP | Unavailable | + +------+ + Encounter Details +--------+ + + + + | Date | Type | Department | Care Team | Description | +--------+ + + + + | 10/12/ | Hospital | [facility] | Olaf Nicole | | | 1997 - | Encounter | [facility] | MD Amy [address] | | | | | CARDIAC TRANSPLANT | [address] | | | 10/13/ | | [address] | [place] [id number] | | | 1999 | | [place] | [phone] | | | | | [address] | | | | | | [phone] | | | +--------+ + + + [...]
--- OUTSIDE RECORDS SUMMARY | ~2020-06-30 | XMS | Encounter Summary ---
Demographics + + + | Address | [address] | | | [place] [address] | + + + | Home Phone [...] Team Providers + +------+ + | Care Veterans' Counselor Name | Role | Phone | [...] [facility] | | | | | | [facility] | | | | | | and Healing, | | | | | | Building [address], 5th | | | | | | Floor [place], [place] | | | | | | [address] | | | | | | [phone] | | | +--------+ + + + [...] Dear | | | | | | [place]: In | | | | | | [...] [address]andra [address] | [place] [address] | | | DERMATOPATHOLOGY | [address] | | | + + + + + | [facility] | Mailcode [address] | [place] [address] | | | DERMATOPATHOLOGY | [address] | | | + + + + + documented in this encounter Visit Diagnoses Not on filedocumented in this encounter"
--- OUTSIDE RECORDS SUMMARY | ~2020-06-30 | XMS | Encounter Summary ---
Demographics + + + | Address | [address] | | | [place] [address] | + + + | Home Phone [...] Providers + +------+ + | Care Senior Quality Assurance Analyst Name | Role | Phone | [...] + + | 07/29/ | Telephone | [facility] | Britni Alcazar RN | Follow-up (Call to | | 2018 | | [facility] [place] | | schedule follow up | | | | [address] | | appt. ) | | | | [place] | | | | | | [address] | | | | | | [phone] | | | +--------+ + + + [...]
--- OUTSIDE RECORDS SUMMARY | ~2020-06-30 | XMS | Clinical Summary ---
Demographics + + + | Address | [address] | | | [place] [address] | + + + | Home Phone [...] Team Providers + +------+ + | Care Materials Handling Coordinator Name | Role | Phone | + +------+ + | Gilberto Estrada MD | PCP | | + +------+ + Source Comments WHITNEY is fully live on both [facility] Ambulatory and [facility] InPatient.[facility] Allergies + + + + + + | Active Allergy | Reactions | Severity | Noted | Comments | | | | | Date | | + + + + + + | Nsaids | Renal Failure | High | 06/14/20 | Avoid per | | (Non-Steroidal | | | 18 | Seed Mill Superintendent | | Anti-Inflammatory | | | | [...] 0 | | | Activ | | [id number] | mouth once daily. 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 to | 06/11/2018 | [...] Right: | MARIALUISA | | 11/26/ | [id number] | | 13mm Implanted: Qty: 1 on | | Knee | | | 2019 | -51 / | | 06/12/2018 by Sandoval Hyde | | | | | | | | MD Leanne at [facility] RE[facility] | | | | | | [...] + +--------+ | MEDICARE | MEDICA | [id number] | 01/26/20 | [phone] | [address] | Medica | | | RE A & | | 15-Pre | 1 | [phone] | re | | | B | | sent | | [place] [address] | | | | | | | | [phone] | | + +--------+ +--------+ + +--------+ | COMMERCIAL GROUP | COMMER | [id number] | 10/27/19 | | | Indemn | [...] Person | Self | [birth year] | [address] | | | al/Jamin | | 1940 | [phone] | [place] [address] | | | afshan | | | [...]
--- OUTSIDE RECORDS SUMMARY | ~2020-06-30 | XMS | Encounter Summary ---
Demographics + + + | Address | [address] | | | [place] [address] | + + + | Home Phone [...] Team Providers + +------+ + | Care Psychologist Clinical Name | Role | Phone | + [...] [facility] | | | | | | [facility] | | | | | | and Healing, | | | | | | Building [address], 5th | | | | | | Floor [place], [place] | | | | | | [address] | | | | | | [phone] | | | +--------+ + + + [...] punch | | | | | | [id number] skin, | | | | | | [...] [facility] | Mailcode [address] | [place] | | | DERMATOPATHOLOGY | [address] | | | + + + + + | [facility] | Mailcode [address] | [place] [address] | | | DERMATOPATHOLOGY | [address] | | | + + + + + documented in this encounter Visit Diagnoses + + | Diagnosis | + + | Other specified dermatitis | + + documented in this encounter
--- OUTSIDE RECORDS SUMMARY | ~2020-06-30 | XMS | Encounter Summary ---
Demographics + + + | Address | [address] | | | [place] [address] | + + + | Home Phone [...] Team Providers + +------+ + | Care Logistician Name | Role | Phone | + [...] 2017 | | [facility] at [facility] | [address] | | | | | [address] | [address] | | | | | Loop Physician's | [place], [place] | | | | | [place], [facility] floor | [address] | | | | | [place], [place] | [phone] | | | | | [address] | | | | | | [phone] | | | +--------+ + + + [...] PSTDr. Dimitri Sidhu, pt's de ntist in [place], called stating pt is having burning sensation in his mouth. Dr. Sidhu i nquired about which medication should be presciribd that won't interfere with Keflex. He can be reached at: [phone] [id number] signed by Layne Huang at 10/07/2018 5:01 PM PSTdocumented in this encounter Plan of Treatment Not on filedocumented as of this encounter Visit Diagnoses Not on filedocumented in this encounter"
[~2020-06-30 12:47] MED LIST changes: +COLCHICINE0.6 M1 PO; +JANUVIA50 MG PO; +LUTEIN-ZEAXANT1 EAC1 PO; +NIACIN500 M1 PO; +VITAMIN B122500 MCG PO; +VITAMIN C500 M5 PO
--- OUTSIDE RECORDS SUMMARY | 2020-06-30 12:50 | XMS ---
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 Alexis VISIT COUNT (12 MO.) 4 [facility] TOTAL 4 NOTE: Visits indicate total known visits. 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 - senior living (current) use of oral hypoglycemic drugs - Personal history of other diseases of the circulatory system - Chronic kidney disease, unspecified - Unspecified staphylococcus as the cause of diseases classifie - terminal 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 operator (current) use of antibiotics - Heart failure, unspecified - Old myocardial infarction - Unspecified osteoarthritis, unspecified site - Hypertensive heart and chronic kidney disease with heart fail - Other longterm (current) drug therapy - Urinary tract infection, site not specified - Atherosclerotic heart disease of [place] coronary artery witho - Type 2 diabetes mellitus with diabetic chronic kidney disease - Allergy status to sulfonamides status - Infection and inflammatory reaction due to internal right kne [email or web address]
[2020-06-30] MEDS ORDERED: ZITHROMAX250 MG PO (16:55)
--- NOTE | 2020-06-30 22:32 | EKG ---
[facility] [address] [facility] [place] [place] [address] Signed Sinus rhythm with frequent premature ventricular complexes Right bundle branch block Inferior infarct (cited on or before 27-JUN-2020) Abnormal ECG When compared with ECG of 27-JUN-2020 21:16, premature ventricular complexes are now present aberrant conduction is no longer present Nonspecific T wave abnormality now evident in Anterolateral leads QT has lengthened Confirmed by RONAL SMALLS MD ([id number]) on 06/30/2020 10:32:47 PM Electronically Signed By: RONAL SMALLS MD 06/30/20 2232 PATIENT NAME: JÚNIOR ARREOLA Electrocardiogram DATE OF : 36 PHYSICIAN: RONAL SMALLS MD REPORT #: [id number] REPORT IS CONFIDENTIAL AND NOT TO BE RELEASED WITHOUT AUTHORIZATION
== END 2020-06-30 17:45 | disposition home or self-care (01) ==
LOC: ED 12:47
DX: U07.1 COVID-19 (principal); J18.9 Pneumonia, unspecified organism; R05 Cough; E86.0 Dehydration; R06.02 Shortness of breath; R07.9 Chest pain, unspecified; E11.9 Type 2 diabetes mellitus without complications; I11.0 Hypertensive heart disease with heart failure; I50.9 Heart failure, unspecified; I25.2 Old myocardial infarction
CPT/HCPCS: 71045; 80048; 84484; 85025; 85610; 93005; 93010; 94640; 94664; 96360; 99284-25; J1100; J7030

== ENCOUNTER 2020-07-16 08:23 | Inpatient (IN) | payer MEDICARE, OTHER ==
[~2020-07-16] VITALS: Ht 170.2 cm; Wt 78.5 kg
--- NOTE | ~2020-07-16 | EKG ---
[facility] [address] [place], [place] [address] Draft EK completed, results pending confirmation PATIENT NAME: MAXWELLJÚNIOR Electrocardiogram DATE OF : 36 PHYSICIAN: PRELIMINARY REPORT #: [id number] REPORT IS CONFIDENTIAL AND NOT TO BE RELEASED WITHOUT AUTHORIZATION
--- OUTSIDE RECORDS SUMMARY | ~2020-07-16 | XMS | Encounter Summary ---
Demographics + + + | Address | [address] | | | [place] [address] | + + + | Home Phone | | + + + | Preferred Language | Unknown | + + + | Marital Status | Unknown | + + + | Worship Affiliation | PRO | + + + | Race | White | + + + | Ethnic Group | Not or | + + + Author + + + | Author | [facility] | + + + | Organization | [facility] | + + + | Address | Unknown | + + + | Phone | Unavailable | + + + Support + + +---------+ + | Name | Relationship | Address | Phone | + + +---------+ + | Beth Mas | ECON | Unknown | | + + +---------+ + Care Team Providers + +------+ + | Care Unix Consultant Name | Role | Phone | + +------+ + | Gilberto Estrada MD | PCP | | + +------+ + Reason for Visit + +--------+ + | Reason | Onset | Comments | | | Date | | + +--------+ + | RN Care Management | 07/27/ | | | | 2017 | | + +--------+ + | Infectious disease | 07/27/ | | | | 2017 | | + +--------+ + Encounter Details +--------+ + + + + | Date | Type | Department | Care Team | Description | +--------+ + + + + | 07/27/ | Telephone | Infectious | Celia Hawthorne, RN | RN Care Management; | | 2017 | | [facility] | [address] | Infectious disease | | | | [address] | [address] | | | | | Loop [facility]'s | [place], [place] | | | | | Pavilion, 3rd floor | [address] | | | | | [place], [place] | [phone] | | | | | [address] | | | | | | [phone] | | | +--------+ + + + [...] this encounter Miscellaneous Notes Telephone Encounter - Cortney Villafana RN - 07/29/2018 9:59 AM PDTConfirmed with Dave brewer Home Health nurse that PICC line was pulled 07/27/18. Cortney Villafana, RN el ephone Encounter - Celia Hawthorne RN - 07/27/2018 9:17 AM PDTSpoke with Cierra [facility]ernando [facility] [phone] and she confirmed that the patient's PICC line is being pulled t his morning. I will call back to for confirmation this afternoon. documented in this encounter Plan of Treatment Not on filedocumented as of this encounter Visit Diagnoses Not on filedocumented in this encounter"
--- OUTSIDE RECORDS SUMMARY | ~2020-07-16 | XMS | Encounter Summary ---
Demographics + + + | Address | [address] | | | [place] [address] | + + + | Home Phone | | + + + | Preferred Language | Unknown | + + + | Marital Status | | + + + | Holiness Affiliation | 1077 | + + + | Race | White | + + + | Ethnic Group | Not or | + + + Author + + + | Author | [facility] | | | and [place] | + + + | Organization | [facility] | | | and [...] Team Providers + +------+ + | Care Product Strategy Director Name | Role | Phone | + +------+ + | Erin Forrester MD | PCP | | + +------+ + Reason for Visit Auth/Cert +--------+--------+ + + + + | Status | Reason | Specialty | Diagnoses / | Referred By | Referred To | | | | | Procedures | Contact | Contact | +--------+--------+ + + + + | | | | Diagnoses | | | | | | | Dysphagia, | | | | | | | unspecified | | | | | | | type | | | | | | | Presence of | | | | | | | cardiac | | | | | | | pacemaker | | | | | | | Presence of | | | | | | | cardiac | | | | | | | pacemaker | | | | | | | [Z95.0]Dysph | | | | | | | agia, | | | | | | | unspecified | | | | | | | type | | | | | | | [R13.10] | | | | | | | Procedures | | | | | | | [place] | | | | | | | ESOPHAGOGAST | | | | | | | RODUODENOSCO | | | | | | | PY TRANSORAL | | | | | | | DIAGNOSTIC | | | | | | | AK EGD | | | | | | | BALLOON | | | | | | | DILATION | | | | | | | ESOPHAGUS | | | | | | | <30 MM DIAM | | | | | | | AK | | | | | | | LAP,ESOPHAGU | | | | | | | S,OTHER PROC | | | | | | | EGD with | | | | | | | Dilation | | | +--------+--------+ + + + + Encounter Details +--------+ + + + + | Date | Type | Department | Care Team | Description | +--------+ + + + + | 07/31/ | Anesthesia | [facility] | Ld Corado, | | | 2017 | Event | [facility] | [address] | | | | | [address] | [place] | | | | | [place] | [address] | | | | | [address] | | | | | | [phone] | | | +--------+ + + + + Anesthesia Record + + + + + | Procedure Name | Responsible | Anesthesia Start | Anesthesia Stop Time | | | Anesthesiologist | Time | | + + + + + | EGD with Dilation | Ld Corado MD | 07/31/17 1221 | 07/31/17 1240 | | (N/A Ann) | | | | + + + + + +----+---+ + + | Da | T | Event | Comment | | te | i | | | | | m | | | | | e | | | +----+---+ + + | 10 | 1 | | | | /0 | 2 | | | | 5/ | 1 | | | | 20 | 0 | | | | 17 | | | | +----+---+ + + | | 1 | An Checkout | Pre-use anesthesia machine/equipment checkout. | | | 2 | | | | | 1 | | | | | 3 | | | +----+---+ + + | | 1 | An Start | Reassessment prior to anesthesia induction/procedure. | | | 2 | | | | | 2 | | | | | 1 | | | +----+---+ + + | | 1 | AN | Per surgeon request | | | 2 | Antibiotic | | | | 2 | declined | | | | 2 | | | +----+---+ + + | | 1 | Pre-Procedu | | | | 2 | ral Timeout | | | | 2 | Completed | | | | 5 | | | +----+---+ + + | | 1 | An | | | | 2 | Induction | | | | 2 | | | | | 8 | | | +----+---+ + + | | 1 | First | | | | 2 | Inc/Proc St | | | | 2 | | | | | 9 | | | +----+---+ + + | | 1 | Breathing | | | | 2 | Spontaneous | | | | 2 | ly | | | | 9 | | | +----+---+ + + | | 1 | an stop | | | | 2 | data | | | | 3 | | | | | 7 | | | +----+---+ + + | | 1 | An Stop | Patient handed off to recovery nurse. | | | 4 | | | | | 0 | | | +----+---+ + + +------+ | Meds | +------+ + +--------+ | Name | Total | + +--------+ | lidocaine 2% | 100 mg | + +--------+ | propofol | 110 mg | + +--------+ | lactated ringers (LR) infusion | 400 mL | + +--------+ + + | Name | + + | O2 Flow Rate (L/Min) | + + + + | No blood administrations on file. | + + +--------+ + + + | Type | Details | Placement | Removal | +--------+ + + + | Periph | 07/31/17; 1155; Right; Proximal; | 07/31/17 1155 by | 07/31/17 1300 by | | eral | Hand; orxt-soy-jccyhq catheter | rFed Mendoza RN | Fred Mendoza RN | | IV | system; 20 gauge; topical | | | | | anesthetic spray applied, appears | | | | | comfortable; no longer | | | | | indicated; healing within | | | | | expectations; 07/31/17; 1300 | | | +--------+ + + + documented in this encounter Social History + +-------+ +--------+ + | [...] + + documented as of this encounter [place] Notes Anesthesia Postprocedure Evaluation - Ld Corado MD - 07/31/2017 12:45 PM PDTFormatti ng of this note might be different from the original. ANESTHESIA POSTANESTHESIA EVALUATION Duane Mas 77 y.o. male 1940 [id number] Procedure(s) EGD with Dilation (N/A Mouth) Cooperates? Yes Mental Status Performs simple tasks. Respiratory Satisfactory - Airway patent (self maintained). Cardiovascular Satisfactory - Blood pressure and heart rate acceptable Temperature Satisfactory Pain Satisfactory N/V Control Satisfactory Hydration Satisfactory - No signs of dehydration Complications None apparent Vitals: 07/31/17 1125 07/31/17 1239 BP: 115/57 104/55 Pulse: 72 64 Temp: 36.6 C (97.9 F) 37.4 C (99.3 F) Resp: 15 16 SpO2: 93% 95% Electronically signed by Ld Coardo MD 07/31/2017 12:45 [facility] CAR[facility]ron[facility] signed by Ld Corado MD at 02/2017 12:45 PM PDTAnesthesia Preprocedure Evaluation - Ld Corado MD - 07/30/2017 11: 41 AM PDT ANESTHESIA PREANESTHESIA EVALUATION Duane Mas 77 y.o. male 1940 [id number] Procedure(s): EGD with Dilation (N/A Mouth) Medical history, anesthesia, medications, allergy, NPO status verified histories reviewed. Labs reviewed. Review of Systems / Med History Cardiovascular (+) hypertension, CAD (s/p PTCA and CABG), CHF, pacemaker (Medtronic) Pulmonary (+) shortness of breath (Laying flat)(+) sleep apnea: known Endocrine (+) obesity: BMI (30-39) Other (+) arthritis (Ankylosing spondylitis), coagulopathy (Long-term coumadin) Physical Exam Airway MP II, TM >3 FB, Mouth opening <2 FB. Neck: limited ROM, extends <30 degrees. Dental Grossly normal except where noted below.; CV Rhythm regular. Rate Normal. (-) murmur. Pulm Clear to auscultation bilaterally. Neuro Grossly normal. Anesthesia Plan ASA 3 (CAD, SEUN, Ankylosing Spondylitis) Type: Total IV anesthesia and general. Induction: Intravenous. Potential problems: None anticipated, difficult airway. Monitors: Standard ASA monitors. Consent statement:Anesthetic plan, alternatives, risks and benefits discussed with patient. Risks discussed included (but were not limited to): perioperative CV events, sore throat, h eart problems, respiratory events, nausea, . Consenting person understands and agrees to proceed. PARQ. TIVA/IVGA w/ propofol.. documented in this en counter Plan of Treatment +--------+ + + + [...] + + documented as of this encounter Visit Diagnoses Not on filedocumented in this encounter Administered Medications + +--------+ +--------+------+------+ | Medication Order | MAR | Action | Dose | Rate | Site | | | Action | Date | | | | + +--------+ +--------+------+------+ | lidocaine (PF) 2% injection | Given | 07/31/20 | 100 mg | | | | Intravenous, PRN, Starting Zandra | | 17 12:28 | | | | | 07/31/17 at 1228, Anesthesia | | PM PDT | | | | | Intra-op | | | | | | + +--------+ +--------+------+------+ +---+---+ | | | +---+---+ + +-------+ +-------+---+---+ | propofol (DIPRIVAN) injection | Given | 07/31/ | 20 mg | | | | Intravenous, PRN, Starting Zandra | | 17 12:32 | | | | | 07/31/17 at 1228, Anesthesia | | PM PDT | | | | | Intra-op | | | | | | + +-------+ +-------+---+---+ +-------+ +-------+---+---+ | Given | 07/31/20 | 20 mg | | | | | 17 12:30 | | | | | | PM PDT | | | | +-------+ +-------+---+---+ | Given | 07/31/20 | 70 mg | | | | | 17 12:28 | | | | | | PM PDT | | | | +-------+ +-------+---+---+ +---+---+ | | | +---+---+ documented in this encounter"
--- OUTSIDE RECORDS SUMMARY | ~2020-07-16 | XMS | Encounter Summary ---
Demographics + + + | Address | [address] | | | [place] [address] | + + + | Home Phone | | + + + | Preferred Language | Unknown | + + + | Marital Status | | + + + | Church Affiliation | 1077 | + + + | Race | White | + + + | Ethnic Group | Not or | + + + Author + + + | Author | [facility] | | | and [place] | + + + | Organization | [facility] | | | and [...] Team Providers + +------+ + | Care Test Bore Helper Name | Role | Phone | + +------+ + | Erin Forrester MD | PCP | | + +------+ + Encounter Details +--------+ + + + + | Date | Type | Department | Care Team | Description | +--------+ + + + + | 02/12/ | Orders Only | [facility] | Mikal Calix MD | | | 2018 | | NEPRHOLOGY [place] | [address] | | | | | [address] | [address] [place], [place] | | | | | [address] [place], [place] | [address] | | | | | [address] | | | | | | [phone] | | | +--------+ + + + [...] + | URINALYSIS WITH | Routin | 02/19/2018 | | Results for this | | MICROSCOPIC IF | e | 12:00 AM | | procedure are in the | | INDICATED | | PDT | | results section. | + +--------+ + + + | EXTERNAL LAB: CBC | Routin | 02/12/2018 | | Results for this | | | e | 12:00 AM | | procedure are in the | | | | PDT | | results section. | + +--------+ + + + | PROTEIN/CREATININE | Routin | 02/12/2018 | | Results for this | | RATIO, URINE | e | 12:00 AM | | procedure are in the | | | | PDT | | results section. | + +--------+ + + + | URIC ACID | Routin | 02/12/2018 | | Results for this | | | e | 12:00 AM | | procedure are in the | | | | PDT | | results section. | + +--------+ + + + | BASIC METABOLIC | Routin | 02/12/2018 | | Results for this | | PANEL | e | 12:00 AM | | procedure are in the | | | | PDT | | results section. | + +--------+ + + + documented in this encounter Results Urinalysis with Microscopic if Indicated (02/19/2018 12:00 AM PDT) + + + + + + | Component | Value | Ref Range | Performed | Pathologist | | | | | At | Signature | + + + + + + | Color | Light Yellow | | EXTERNAL | | | | | | LAB | | + + + + + + | Clarity, | Clear | | EXTERNAL | | | Urine | | | LAB | | + + + + + + | Spec Grav, | 1.006 | 1.005 - 1.030 | EXTERNAL | | | Fluid | | | LAB | | + [...] + + + + + + | Total | neg | | EXTERNAL | | | Protein | | | LAB | | + [...] + + + + | Ketones | neg | | EXTERNAL | | | | | | LAB | | + + + + + + | Bilirubin, | Negative | | EXTERNAL | | | Urine | | | LAB | | + + + + + + | Glucose, | Comment: small | | EXTERNAL | | | Urine [...] | | | + +---------+ + + Protein/Creatinine Ratio, Urine (02/12/2018 12:00 AM PDT) + + + + + + | Component | Value | Ref Range | Performed | Pathologist | | | | | At | Signature | + + + + + + | Protein/Cre | Comment: not performed | | EXTERNAL | | | at Ratio | urine to total protein | | LAB | | | | verified repeat analysis | | | | + + + + + + + + | Specimen | + + | Urine specimen | | (specimen) | + + + + + | Narrative | Performed At | + + + | PROTEIN, URINE - <4 - 0.0 - 50.0 CREATININE, URINE - 31 | EXTERNAL LAB | + + + + +---------+ + + | Performing | Address | City/State/Zipcode | Phone Number | | Organization | | | | + +---------+ + + | EXTERNAL LAB | | | | + +---------+ + + External Lab: [facility] (02/12/2018 12:00 AM PDT) + + + + + + | Component | Value | Ref Range | Performed | Pathologist | | | | | At | Signature | + + + + + + | WBC | 7.1 | 4.5 - 11.0 10 | EXTERNAL | | | | | | LAB | | + + + + + + | Non- | 4.18 (A) | 4.3 - 5.7 10 | [...] + + + + | Hematocrit, | 40.1 (A) | 41 - 50 % | EXTERNAL | | | POC | | | LAB | | + + + + + + | MCV | 95.9 | 81 - 99 fL | EXTERNAL | | | | | | LAB | | + + + + + + | MCH | 32 | 27 - 33 pg | EXTERNAL | | | | | | LAB | | + + + + + + | MCHC | 33 | 30 - 36 g/dL | EXTERNAL | | | | | | LAB | | + + + + + + | Platelet | 128 (A) | 140 - 440 K/ L | EXTERNAL | | | Count | | | LAB | | | Plasma | | | | | + + + + + + | RDW-CV | 19.1 (A) | 10.5 - 15.0 % | [...] + + + | % Segmented | 60.7 | 39 - 80 % | EXTERNAL | | | | | | LAB | | | Neutrophils | | | | | + + + + + + | % | 24.6 | 24 - 44 % | EXTERNAL | | | Lymphocytes | | | LAB | | + + + + + + | % Monocytes | 12.0 | 0 - 12 % | EXTERNAL | | | | | | LAB | | + + + + + + | % | 1.9 | 0 - 6 % | EXTERNAL | | | Eosinophils | | | LAB | | + + + + + + | % Basophils | 0.8 | 0 - 2 % | EXTERNAL | | | | [...] | + +---------+ + + Uric Acid (02/12/2018 12:00 AM PDT) + +-------+ + + + | Component | Value | Ref Range | Performed | Pathologist | | | | | At | Signature | + +-------+ + + + | Uric Acid | 5.0 | 4.4 - 7.6 | EXTERNAL | [...] + +---------+ + + Basic Metabolic Panel (02/12/2018 12:00 AM PDT) + + + + + + | Component | Value | Ref Range | Performed | Pathologist | | | | | At | Signature | + + + + + + | Glucose, | 239 (A) | 70 - 100 mg/dL | EXTERNAL | | | Fasting | | | LAB | | + + + + + + | BUN | 38 (A) | 6 - 23 mg/dL | EXTERNAL | | | | | | LAB | | + + + + + + | Creatinine | 1.67 (A) | 0.70 - 1.18 | EXTERNAL | | | | | mg/dL | LAB | | + + + + + + | BUN/Creatin | 22.8 | 6.0 - 28.6 | EXTERNAL | | | ine Ratio | | | LAB | | + + + + + + | Calcium | 9.2 | 8.4 - 10.2 | EXTERNAL | | | | | mg/dL | LAB | | + + + + + + | Na | 140 | 132 - 143 | EXTERNAL | | | | | mmol/L | LAB | | + + + + + + | K | 3.8 | 3.6 - 5.1 | EXTERNAL | | | | | mmol/L | LAB | | + + + + + + | Cl | 96 | 95 - 112 mmol/L | EXTERNAL | | | | | | LAB | | + + + + + + | CO2 | 32 (A) | 19 - 31 mmol/L | EXTERNAL | | | | | | LAB | | + + + + + + | Anion Gap | 15.8 | 7 - 21 mmol/L | EXTERNAL | | | | | | LAB | | + + + + + + | Estimated | 40 | mg/dL | EXTERNAL | | | GFR [...]
--- OUTSIDE RECORDS SUMMARY | ~2020-07-16 | XMS | Encounter Summary ---
Demographics + + + | Address | [address] | | | [place] [address] | + + + | Home Phone | | + + + | Preferred Language | Unknown | + + + | Marital Status | Unknown | + + + | Rastafari Affiliation | PRO | + + + | Race | White | + + + | Ethnic Group | Not or | + + + Author + + + | Organization | Unknown | + + + | Address | Unknown | + + + | Phone | Unavailable | + + + Support + + +---------+ + | Name | Relationship | Address | Phone | + + +---------+ + | Beth Cheung ECON | Unknown | | + + +---------+ + Care Team Providers + +------+ + | Care Collar Padder Blindstitch Name | Role | Phone | + +------+ + | Gilberto Estrada MD | PCP | | + +------+ + Encounter Details +--------+--------+ + + + | Date | Type | Department | Care Team | Description | +--------+--------+ + + + | 04/27/ | Travel | | | | | 2019 | | | | | +--------+--------+ + + + Social History + +-------+ [...]
--- OUTSIDE RECORDS SUMMARY | ~2020-07-16 | XMS | Encounter Summary ---
Demographics + + + | Address | [address] | | | [place] [address] | + + + | Home Phone | | + + + | Preferred Language | Unknown | + + + | Marital Status | | + + + | Moravian Affiliation | 1077 | + + + | Race | White | + + + | Ethnic Group | Not or | + + + Author + + + | Author | [facility] | | | and [place] | + + + | Organization | [facility] | | | [...] Team Providers + +------+ + | Care Wind Turbine Service Technician Name | Role | Phone | + +------+ + | Erin Forrester MD | PCP | | + +------+ + Reason for Visit + +--------+ + | Reason | Onset | Comments | | | Date | | + +--------+ + | Device Check | 12/08/ | | | | 2020 | | + +--------+ + Encounter Details +--------+ + + + + | Date | Type | Department | Care Team | Description | +--------+ + + + + | 12/08/ | Telephone | [facility] | Kristie De Los Santos ANP | Device Check | | 2020 | | CARDIOLOGY [place] | [address] | | | | | [address] | [place], [place] | | | | | [place], [place] | [address] | | | | | [address] | | | | | | [phone] | | | +--------+ + + + [...] Telephone Encounter - June Tarango V - 12/08/2019 12:05 PM PSTLeft message for patient to schedule follow up with Kristie De Los Santos and device clinic. Patient no showed in August 2019. Device: Medtronic [facility] Plan of Treatment +--------+ + + + [...]
--- OUTSIDE RECORDS SUMMARY | ~2020-07-16 | XMS | Encounter Summary ---
Demographics + + + | Address | [address] | | | [place] [address] | + + + | Home Phone | | + + + | Preferred Language | Unknown | + + + | Marital Status | Unknown | + + + | Faith Affiliation | PRO | + + + | Race | White | + + + | Ethnic Group | Not or | + + + Author + + + | Author | [facility] | + + + | Organization | [facility] | + + + | Address | Unknown | + + + | Phone | Unavailable | + + + Support + + +---------+ + | Name | Relationship | Address | Phone | + + +---------+ + | Beth Mas | ECON | Unknown | | + + +---------+ + Care Team Providers + +------+ + | Care Earth Auger Operator Name | Role | Phone | [...] | | | | and | | [address] | | | | | inflammatory | | [place] [address] | | | | | reaction | | [address] [place], | | | | | due to | | [place] | | | | | internal | | [address] | | | | | right knee | | Phone: | | | | | prosthesis, | | [phone] | | | | | initial | | Fax: | | | | | encounter | | [phone] | +--------+--------+ + + + + Encounter [...] | | | | Loop Phys[facility] | [facility] [place] | subsequent encounter | | | | [place], [address] floor | [address] | (Primary Dx); Long | | | | [place], [place] | [phone] | term (current) use | | | | [address] | | of antibiotics | | | | [phone] | | | +--------+---------+ + + + [...] he was briefly hospitalized since discharge from [facility] for ALVINO. Cr now back at [...] mouth once daily., Disp: , Rfl: antiox. no.06-[id number]-[id number]-cyx-ctk (I-CAPS) 280-10-2 mg oral capsule, Take 1 [...] three times daily., Disp: , Rfl: omega 2-yxc-tol-fish oil (FISH OIL) 100-160-1,000 mg oral capsule, [...] prn Abril Shields MD Infectious Diseases p [phone] documented in this encounter Plan of Treatment Not on filedocumented as of this encounter Visit Diagnoses + + | Diagnosis | + + | Infection associated with internal right knee prosthesis, subsequent encounter - | | Primary | + + | manager intermediate (current) use of antibiotics | + + documented in this encounter"
--- OUTSIDE RECORDS SUMMARY | ~2020-07-16 | XMS | Encounter Summary ---
Demographics + + + | Address | [address] | | | [place] [address] | + + + | Home Phone | | + + + | Preferred Language | Unknown | + + + | Marital Status | | + + + | Protestant Affiliation | 1077 | + + + | Race | White | + + + | Ethnic Group | Not or | + + + Author + + + | Author | [facility] | | | and [place] | + + + | Organization | [facility] | | | and [...] Team Providers + +------+ + | Care Medical Biller/Coder Name | Role | Phone | + [...] | | | | | | | [place] | | | | | | | ESOPHAGOGAST | | | | | | | RODUODENOSCO | | | | | | | PY TRANSORAL | | | | | | | DIAGNOSTIC | | | | | | | CA EGD | | | | | | | TRANSORAL | | | | | | | BIOPSY | | | | | | | SINGLE/MULTI | | | | | | | PLE CA EGD | | | | | | | BALLOON | | | | | | | DILATION | | | | | | | ESOPHAGUS | | | | | | | <30 MM DIAM | | | | | | | [place] | | | | | | | [...] + + + + | 02/08/ | [facility] | [facility] | Willow Colin MD | | | 2019 | Encounter | MED CTR [facility] | [address] | | | | | [address] | [address], | | | | | [place] [address] | [place] [address] | | | | | [phone] | [phone] | | | | | | | [...] | Time | | seconds | [facility] | | | | | | MEDICAL [...] + + | [facility] | [address] | [place] | [phone] | | [facility] | | [address] | | | - LABORATORY | | [...]
--- OUTSIDE RECORDS SUMMARY | ~2020-07-16 | XMS | Encounter Summary ---
Demographics + + + | Address | [address] | | | [place] [address] | + + + | Home Phone | | + + + | Preferred Language | Unknown | + + + | Marital Status | | + + + | Jehovah'S Witness Affiliation | 1077 | + + + | Race | White | + + + | Ethnic Group | Not or | + + + Author + + + | Author | [facility] | | | and [place] | + + + | Organization | [facility] | | | [...] Providers + +------+ + | Care Medical Or Surgical Instrument Maker Name | Role | Phone | + +------+ + PCP | Unavailable | + +------+ + Encounter Details +--------+ + + + + | Date | Type | Department | Care Team | Description | +--------+ + + + + | 10/25/ | Emergency | [facility] | Syed Winchester | Fever, unspecified | | 2016 | | MEDICAL CENTER | DO Don [address] | fever cause; | | | | EMERGENCY CENTER | [address] | Leukocytosis, | | | | [address] | [place] | unspecified type | | | | [facility] [place] | [address] | | | | | [address] | [phone] | | | | | [phone] | | | +--------+ + + + [...] 0313 Date of Service: 10/25/162035 Status: Signed Slate Cutter Operator: Syed W[place] DO (Physician) [facility] Department of Emergency Medicine 8:37 PM History [...] - TOTAL; Surgeon: Drew Hurst MD; Location: [facility] MAIN OR; Serv e: Orthopedics; Laterality: Right; [...] 1 tablet by mouth daily. 10/18/15 Robel iRcci DO losartan (COZAAR) 50 MG tablet Take [...] (two) times daily as needed. Historical Provider [facility]-3 Fatty Acids (FISH OIL) 1200 MG CAPS [...] reevaluation. 10:40 PM Discussed case with Dr. Ha, Sales Expert, who requests that the patient be st [...] Date/Time Urinalysis (reflex to microscopic/reflex to culture) [[id number]] (Abnormal) Collected: 10/25/162218 Order Status: Completed Specimen Information: Urine, Clean Catch Updated: 10/25/16 22 34 COLOR UA YELLOW CLARITY CLEAR Specific [place], UA 1.020 1.002 - 1.030 LEUKOCYTE ESTERASE NEGATIVE NEGATIVE NITRITE NEGATIVE NEGATIVE UROBILINOGEN NORMAL <1.1 mg/dL PROTEIN NEGATIVE NEGATIVE mg/dL PH,URINE 5.0 5.0 - 8.0 BLOOD NEGATIVE NEGATIVE KETONES NEGATIVE NEGATIVE mg/dL BILIRUBIN NEGATIVE NEGATIVE GLUCOSE 50 (A) NEGATIVE mg/dL Influenza Antigen [[id number]] Collected: 10/25/162104 Order Status: Completed Specimen Information: Nasopharyngeal from Nasopharyngeal Cultur e Updated: 10/25/162141 INFLUENZA A NEGATIVE NEGATIVE INFLUENZA B NEGATIVE NEGATIVE Complete Metabolic Panel [[id number]] (Abnormal) Collected: 10/25/162102 Order Status: Completed Specimen [...] (L) >60 mL/min/1.73m2 CBC w Auto Diff [[id number]] (Abnormal) Collected: 10/25/162102 Order Status: Completed Specimen [...] 1. No acute cardiopulmonary process noted. Narrative: JÚNIOR MAS 1940 76 years XR CHEST [...] fol low up and evaluation [address] [facility] [address] Tita Christopher MD Call in 1 week As needed for further follow up and evaluation [address] [facility] [address] [place] [id number] [facility] Emergency Department If symptoms worsen [address] [facility] [address] Discharge Medications: Discharge Medication List as of 10/25/2016 10:57 PM START taking these medications Details levofloxacin (LEVAQUIN) 750 MG tablet Take 1 tablet by mouth daily., Starting 10/25/2016, U ntil Fri11/01/16, Print Procedures Additional Documentation Procedures Attending Note: Documentation assistance provided by Kathy Hernandez (Scribe). Information recorded by the scribe [...] Rad Conversion - 06/10/2019 6:48 PM TOMMIE [id number] yearsXR CHEST | | 2 VIEW FRONTAL AND JQBWKKH6710/25/2016 10:32 PM INDICATION: Fever. TECHNIQUE: 2 views [...] EXTERNAL | | | | performed at [facility];888 | | LAB | | | | [address];[place] | | | | | | [address] | | | | + + + + + + | Clarity, | CLEARComment: Testing | | EXTERNAL | | | Urine | performed at [facility];[address] | | LAB | | | | [address];[place] | | | | | | [address] | | | | + + + + + + | Specific | 1.020Comment: Testing | 1.002 - 1.030 | EXTERNAL | | | [place], | performed at [facility];[address] | | LAB | | | Urine | [address];[place] | | | | | | [address] | | | | + + + + + + | Leukocyte | NEGATIVEComment: Testing | | EXTERNAL | | | Esterase, | performed at [facility];888 | | LAB | | | Urine | [address];[place] | | | | | | [address] | | | | + + + + + + | Nitrite, | NEGATIVEComment: Testing | | EXTERNAL | | | Urine | performed at [facility];[address] | | LAB | | | | [address];[place] | | | | | | [address] | | | | + + + + + + | Urobilinoge | NORMALComment: Testing | mg/dL | EXTERNAL | | | n, Urine | performed at [facility];[address] | | LAB | | | | [address];[place] | | | | | | [address] | | | | + + + + + + | Protein, | NEGATIVEComment: Testing | mg/dL | EXTERNAL | | | Urine | performed at [facility];[address] | | LAB | | | | [address];[place] | | | | | | [address] | | | | + + + + + + | pH, Urine | 5.0Comment: Testing | 5.0 - 8.0 | EXTERNAL | | | | performed at [facility];[address] | | LAB | | | | [address];[place] | | | | | | [address] | | | | + + + + + + | Blood, | NEGATIVEComment: Testing | | EXTERNAL | | | Urine | performed at [facility];[address] | | LAB | | | | [address];[place] | | | | | | [address] | | | | + + + + + + | Ketones | NEGATIVEComment: Testing | mg/dL | EXTERNAL | | | | performed at [facility];[address] | | LAB | | | | [address];[place] | | | | | | [address] | | | | + + + + + + | Bilirubin, | NEGATIVEComment: Testing | | EXTERNAL | | | Urine | performed at [facility];[address] | | LAB | | | | [address];[place] | | | | | | [address] | | | | + + + + + + | Glucose, | 50 (A)Comment: Testing | mg/dL | EXTERNAL | | | Urine | performed at [facility];[address] | | LAB | | | | [address];[place] | | | | | | [address] | | | | + + + [...] | performed by ICA Testing performed at [facility];8 [facility];[place], [place] | | | [address] INFLUENZA B NEGATIVE | | | Testing performed by ICA Testing performed at [facility];8 [facility] | | | [facility];[place] [address] | | + + + + +---------+ [...] | | | | | [address];[place] [address] | | | | + + + + + + | Non- | 5.15Comment: Testing | 4.20 - 5.70 | EXTERNAL | | | Red Blood | performed at [facility];888 | M/uL | LAB | | | Cells | [address];[place] | | | | | Counted | [address] | | | | + + + + + + | Hemoglobin | 15.7Comment: Testing | 13.2 - 17.0 | EXTERNAL | | | | performed at [facility];888 | g/dL | LAB | | | | [address];[place] | | | | | | [address] | | | | + + + + + + | Hematocrit, | 46.2Comment: Testing | 39.0 - 50.0 % | EXTERNAL | | | POC | performed at [facility];[address] | | LAB | | | | [address];[place] | | | | | | [address] | | | | + + + + + + | MCV | 89.6Comment: Testing | 80.0 - 100.0 fl | EXTERNAL | | | | performed at [facility];[address] | | LAB | | | | [address];[place] | | | | | | [address] | | | | + + + + + + | MCH | 30.4Comment: Testing | 27.0 - 34.0 pg | EXTERNAL | | | | performed at [facility];[address] | | LAB | | | | [address];[place] | | | | | | [address] | | | | + + + + + + | MCHC | 33.9Comment: Testing | 32.0 - 35.5 | EXTERNAL | | | | performed at [facility];888 | g/dL | LAB | | | | [address];[place] | | | | | | [address] | | | | + + + + + + | RDW-CV | 48.1Comment: Testing | 37 - 53 fl | EXTERNAL | | | | performed at [facility];[address] | | LAB | | | | [address];[place] | | | | | | [address] | | | | + + + + + + | Platelet | 99 (L)Comment: Testing | 150 - 400 K/uL | EXTERNAL | | | Count | performed at [facility];[address] | | LAB | | | Plasma | [address];[place] | | | | | | [address] | | | | + + + + + + | MPV | 8.7Comment: Testing | fl | EXTERNAL | | | | performed at [facility];[address] | | LAB | | | | [address];[place] | | | | | | [address] | | | | + + + + + + | Differentia | AUTOMATEDComment: | | EXTERNAL | | | l Type | Testing performed at | | LAB | | | | [facility];[address];[place] [address] | | | | + + + + + + | % Segmented | 83.01Comment: Testing | % | EXTERNAL | | | | performed at [facility];[address] | | LAB | | | Neutrophils | [address];[place] | | | | | | [address] | | | | + + + + + + | % | 8.29Comment: Testing | % | EXTERNAL | | | Lymphocytes | performed at [facility];[address] | | LAB | | | | [address];[place] | | | | | | [address] | | | | + + + + + + | % Monocytes | 7.46Comment: Testing | % | EXTERNAL | | | | performed at [facility];[address] | | LAB | | | | [address];[place] | | | | | | [address] | | | | + + + + + + | % | 0.85Comment: Testing | % | EXTERNAL | | | Eosinophils | performed at [facility];[address] | | LAB | | | | [address];[place] | | | | | | [address] | | | | + + + + + + | % Basophils | 0.39Comment: Testing | % | EXTERNAL | | | | performed at [facility];[address] | | LAB | | | | [address];[place] | | | | | | [address] | | | | + + + + + + | Absolute | 10.02 (H)Comment: | 1.90 - 7.40 | EXTERNAL | | | Segmented | Testing performed at | K/uL | LAB | | | Neutrophils | [facility];[address] | [address];[place] [address] | | | | + + + + + + | Absolute | 1.00Comment: Testing | 1.00 - 3.90 | EXTERNAL | | | Lymphocytes | performed at [facility];888 | K/uL | LAB | | | | [address];[place] | | | | | | [address] | | | | + + + + + + | Absolute | 0.90 (H)Comment: Testing | 0.00 - 0.80 | EXTERNAL | | | Monocytes | performed at [facility];888 | K/uL | LAB | | | | [address];[place] | | | | | | [address] | | | | + + + + + + | Absolute | 0.10Comment: Testing | 0.00 - 0.50 | EXTERNAL | | | Eosinophils | performed at [facility];888 | K/uL | LAB | | | | [address];[place] | | | | | | [address] | | | | + + + + + + | Absolute | 0.05Comment: Testing | 0.00 - 0.10 | EXTERNAL | | | Basophils | performed at [facility];888 | K/uL | LAB | | | | [address];[place] | | | | | | [address] | | | | + + + [...] EXTERNAL | | | | performed at [facility];888 | mmol/L | LAB | | | | [address] | | | | | | [address] | | | | + + + + + + | K | 3.6Comment: Testing | 3.5 - 4.9 | EXTERNAL | | | | performed at [facility];888 | mmol/L | LAB | | | | [address];[place] | | | | | | [address] | | | | + + + + + + | Cl | 95 (L)Comment: Testing | 99 - 109 mmol/L | EXTERNAL | | | | performed at [facility];[address] | | LAB | | | | [address];[place] | | | | | | [address] | | | | + + + + + + | CO2 | 29Comment: Testing | 23 - 32 mmol/L | EXTERNAL | | | | performed at [facility];[address] | | LAB | | | | [address];[place] | | | | | | [address] | | | | + + + + + + | Anion Gap | 17Comment: Testing | 5 - 20 mmol/L | EXTERNAL | | | | performed at [facility];[address] | | LAB | | | | [address];[place] | | | | | | [address] | | | | + + + + + + | Glucose, | 117 (H)Comment: Testing | 65 - 99 mg/dL | EXTERNAL | | | Fasting | performed at [facility];[address] | | LAB | | | | [address] | | | | | | [address] | | | | + + + + + + | BUN | 25Comment: Testing | 8 - 25 mg/dL | EXTERNAL | | | | performed at [facility];[address] | | LAB | | | | [address];[place] | | | | | | [address] | | | | + + + + + + | Creatinine | 1.6 (H)Comment: Testing | 0.70 - 1.30 | EXTERNAL | | | | performed at [facility];888 | mg/dL | LAB | | | | [address];[place] | | | | | | [address] | | | | + + + + + + | BUN/Creatin | 16Comment: Testing | | EXTERNAL | | | ine Ratio | performed at [facility];[address] | | LAB | | | | [address];[place] | | | | | | [address] | | | | + + + + + + | Calcium | 8.4 (L)Comment: Testing | 8.5 - 10.5 | EXTERNAL | | | | performed at [facility];888 | mg/dL | LAB | | | | [address];[place] | | | | | | [address] | | | | + + + + + + | Protein, | 7.7Comment: Testing | 6.3 - 8.2 g/dL | EXTERNAL | | | Total | performed at [facility];[address] | | LAB | | | | [address];[place] | | | | | | [address] | | | | + + + + + + | Albumin | 3.5Comment: Testing | 3.3 - 4.8 g/dL | EXTERNAL | | | | performed at [facility];[address] | | LAB | | | | [address];[place] | | | | | | [address] | | | | + + + + + + | Globulin | 4.2Comment: Testing | 1.3 - 4.9 g/dL | EXTERNAL | | | | performed at [facility];[address] | | LAB | | | | [address];[place] | | | | | | [address] | | | | + + + + + + | A/G Ratio | 0.8 (L)Comment: Testing | 1.0 - 2.4 | EXTERNAL | | | | performed at [facility];[address] | | LAB | | | | [address];[place] | | | | | | [address] | | | | + + + + + + | Bilirubin | 1.4Comment: Testing | 0.1 - 1.5 mg/dL | EXTERNAL | | | Total | performed at [facility];[address] | | LAB | | | | [address];[place] | | | | | | [address] | | | | + + + + + + | ALP, | 52Comment: Testing | 35 - 115 U/L | EXTERNAL | | | External | performed at [facility];[address] | | LAB | | | | [address];[place] | | | | | | [address] | | | | + + + + + + | AST | 24Comment: Testing | 10 - 45 U/L | EXTERNAL | | | | performed at [facility];[address] | | LAB | | | | [address];[place] | | | | | | [address] | | | | + + + + + + | ALT | 23Comment: Testing | 10 - 65 U/L | EXTERNAL | | | | performed at [facility];[address] | | LAB | | | | [address];[place] | | | | | | [address] | | | | + + + [...] | | | | | | at [facility];[address];[place] [address] | | | | + + + [...]
--- OUTSIDE RECORDS SUMMARY | ~2020-07-16 | XMS | Encounter Summary ---
Demographics + + + | Address | [address] | | | [place] [address] | + + + | Home Phone | | + + + | Preferred Language | Unknown | + + + | Marital Status | Unknown | + + + | Jain Affiliation | PRO | + + + [...] Team Providers + +------+ + | Care Global Marketing Operations Manager Name | Role | Phone | [...] floor | | | | | | [place], [place] | | | | | | [address] | | | +--------+ + + + [...]
--- OUTSIDE RECORDS SUMMARY | ~2020-07-16 | XMS | Encounter Summary ---
Demographics + + + | Address | [address] | | | [place] [address] | + + + | Home Phone | | + + + | Preferred Language | Unknown | + + + | Marital Status | Unknown | + + + | Jainism Affiliation | PRO | + + + | Race | White | + + + | Ethnic Group | Not or | + + + Author + + + | Author | [facility] | + + + | Organization | [facility] | + + + | Address | Unknown | + + + | Phone | Unavailable | + + + Support + + +---------+ + | Name | Relationship | Address | Phone | + + +---------+ + | Beth Mas | ECON | Unknown | | + + +---------+ + Care Team Providers + +------+ + | Care Treasury Management Sales Consultant Name | Role | Phone | [...] floor | | | | | | [place], [place] | | | | | | [address] | | | +--------+ + + + [...]
--- OUTSIDE RECORDS SUMMARY | ~2020-07-16 | XMS | Encounter Summary ---
Demographics + + + | Address | [address] | | | [place] [address] | + + + | Home Phone | | + + + | Preferred Language | Unknown | + + + | Marital Status | Unknown | + + + | Samaritan Affiliation | PRO | + + + | Race | White | + + + | Ethnic Group | Not or | + + + Author + + + | Author | [facility] | + + + | Organization | [facility] | + + + | Address | Unknown | + + + | Phone | Unavailable | + + + Support + + +---------+ + | Name | Relationship | Address | Phone | + + +---------+ + | Beth Mas | ECON | Unknown | | + + +---------+ + Care Team Providers + +------+ + | Care Paper Cone Machine Tender Name | Role | Phone | + +------+ + | Gilberto Estrada MD | PCP | | + +------+ + Encounter Details +--------+ + + + + | Date | Type | Department | Care Team | Description | +--------+ + + + + | 10/07/ | Telephone | Infectious | Abril Shields S, | | | 2017 | | [facility] at [facility] | [address] | | | | | [address] | [address] | | | | | Loop Physician[address] | [place], [place] | | | | | [place], [facility] floor | [address] | | | | | [place], [place] | [phone] | | | | | [address] | | | | | | [phone] | | | +--------+ + + + [...] this encounter Miscellaneous Notes Telephone Encounter - Abril Shields MD - 10/07/2018 5:[address] Sidhu. He evaluated pt on 09/29 and pt noted burning sensation under his upper lip. No oral mucosal ulcers or evidence of thrush on exam at that time. Sxs have not improved despite 7d of nyst atin so thrush seems less likely. Unclear etiology of his sxs. Other infectious consideratio ns could be mild gingivostomatitis 2/2 HSV although I do not know if pt has any hx of HSV-1 and lack of ulcerative lesions argues against this. I have a low suspicion this is a direct side effect of cephalexin so wouldn't recommend stopping it or changing to alternate suppres sive antibiotic at this time. Suggested pt follow-up with his PCP since there is no clear de ntal etiology of these sxs. elephone Encounter - Layne Huang - 10/07/2018 4:[address] Dimitri Sidhu, pt's de ntist in [place], called stating pt is having burning sensation in his mouth. Dr. Sidhu i nquired about which medication should be presciribd that won't interfere with Keflex. He can be reached at: [phone] [email or web address] signed by Layne Huang at 10/07/2018 5:01 PM PSTdocumented in this encounter Plan of Treatment Not on filedocumented as of this encounter Visit Diagnoses Not on filedocumented in this encounter"
--- OUTSIDE RECORDS SUMMARY | ~2020-07-16 | XMS | Encounter Summary ---
Demographics + + + | Address | [address] | | | [place] [address] | + + + | Home Phone | | + + + | Preferred Language | Unknown | + + + | Marital Status | Unknown | + + + | Gnosticism Affiliation | PRO | + + + [...] Team Providers + +------+ + | Care Stone Setter Apprentice Name | Role | Phone | + [...] [address] | | | | | [address] | [address] | | | | | Loop Physician[address] | [place], [place] | | | | | [place], [facility] floor | [address] | | | | | [place], [place] | [phone] | | | | | [address] | | | | | | [phone] | | | +--------+ + + + [...]
--- OUTSIDE RECORDS SUMMARY | ~2020-07-16 | XMS | Encounter Summary ---
Demographics + + + | Address | [address] | | | [place] [address] | + + + | Home Phone | | + + + | Preferred Language | Unknown | + + + | Marital Status | | + + + | Lutheran Affiliation | 1077 | + + + | Race | White | + + + | Ethnic Group | Not or | + + + Author + + + | Author | [facility] | | | and [place] | + + + | Organization | [facility] | | [...] Team Providers + +------+ + | Care Direct Chill Casting Operator Name | Role | Phone | + +------+ + PCP | Unavailable | + +------+ + Encounter Details +--------+ + + + + | Date | Type | Department | Care Team | Description | +--------+ + + + + | 09/12/ | Hospital | [facility] | Olaf Nicole | | | 1997 - | Encounter | [facility] | MD [address] | | | | | CARDIAC TELEMETRY | [address] | | | 09/14/ | | [address] | [place] [address] | | | 1999 | | [place] | [phone] | | | | | [address] | | | | | | [phone] | | | +--------+ + + + [...]
--- OUTSIDE RECORDS SUMMARY | ~2020-07-16 | XMS | Encounter Summary ---
Demographics + + + | Address | [address] | | | [place] [address] | + + + | Home Phone | | + + + | Preferred Language | Unknown | + + + | Marital Status | | + + + | Latter Day Affiliation | 1077 | + + + | Race | White | + + + | Ethnic Group | Not or | + + + Author + + + | Author | [facility] | | | and [place] | + + + | Organization | [facility] | | | [...] Team Providers + +------+ + | Care Payroll Supervisor Name | Role | Phone | [...] + + | 09/29/ | Telephone | [facility] | Kristie De Los Santos ANP | Patient Concerns | | 2019 | | [facility] [place] | [address] | | | | | [address] | [place], [place] | | | | | [place], [place] | [address] | | | | | [address] | | | | | | [phone] | | | +--------+ + + + [...]
--- OUTSIDE RECORDS SUMMARY | ~2020-07-16 | XMS | Encounter Summary ---
Demographics + + + | Address | [address] | | | [place] [address] | + + + | Home Phone [...] + + + | Author | [facility] | | | and [place] | + + + | Organization | [facility] | | [...] Team Providers + +------+ + | Care Spares Scheduler Name | Role | Phone | + +------+ + PCP | Unavailable | + +------+ + Encounter Details +--------+ + + + + | Date | Type | Department | Care Team | Description | +--------+ + + + + | 09/03/ | Hospital | [facility] | Conversion | | | 2012 | Encounter | [facility] | Transaction, | | | | | CLINIC [address] | Provider Unknown | | | | | [place], [place] | | | | | | [address] | (Fax) | | | | | [phone] | | | +--------+ + + + [...] + + documented as of this encounter Procedure Notes Conversion Transaction, Provider Unknown - 09/03/2013 2:20 PM PSTFormatting of this note m ight be different from the original. Pre-Procedure Instructions by Manasa Andrade RN at 09/03/131419 Author: Manasa Andrade RN Service: (none) Author Type: Registered Nurse Filed: 09/03/131419 Date of Service: 09/03/131419 Status: Signed Mat Repairer: Manasa Andrade RN (Registered Nurse) Uses abimael IEdojae giordano in this encounter Plan of Treatment +--------+ [...] + + + | MRSA NAAT | STAT | 09/03/2013 | | Results for this | | | | 1:50 PM | | procedure are in the | | | | PST | | results section. | + +--------+ + + + documented in this encounter Results MRSA NAAT (09/03/2013 1:50 PM PST) + + | Specimen | + + | | + + + + + | Narrative | Performed At | + + + | [facility]) | EXTERNAL LAB | | [place] performed at [facility] [place] [place] [address];[place] [address] MRSA PCR | | | NEGATIVE Testing performed at | | | [facility] [place];[address] [place] [address];[place] [address] | | + + + + +---------+ + + | Performing | Address | City/State/Zipcode | Phone Number | | Organization | | | | + +---------+ + + | EXTERNAL LAB | | | | + +---------+ + + documented in this encounter Visit Diagnoses Not on filedocumented in this encounter"
--- OUTSIDE RECORDS SUMMARY | ~2020-07-16 | XMS | Encounter Summary ---
Demographics + + + | Address | [address] | | | [place] [address] | + + + | Home Phone | | + + + | Preferred Language | Unknown | + + + | Marital Status | Unknown | + + + | Confucianist Affiliation | PRO | + + + | Race | White | + + + | Ethnic Group | Not or | + + + Author + + + | Author | [facility] | + + + | Organization | [facility] | + + + | Address | Unknown | + + + | Phone | Unavailable | + + + Support + + +---------+ + | Name | Relationship | Address | Phone | + + +---------+ + | Beth Mas | ECON | Unknown | | + + +---------+ + Care Team Providers + +------+ + | Care Tubing Supervisor Name | Role | Phone | [...] | 2018 | | [address] Hernandez | [address] | POSSIBLE COMPONENT | | | | Rd [facility] Main | [facility] [place] | EXCHANGE, POSSIBLE | | | | Hospital Admitting | [address] | REVISION | | | | Desk Located on the | [phone] | | | | | 9th floor | | | | | | [place], [place] | | | | | | [address] | | | +--------+---------+ + + + [...] | | 0 | | | | [id number] | mouth once daily. | | | [...] Leon who advised PT to come to [facility] ED. Advised Dr. Yen to call ED [...]
--- OUTSIDE RECORDS SUMMARY | ~2020-07-16 | XMS | Encounter Summary ---
Demographics + + + | Address | [address] | | | [place] [address] | + + + | Home Phone | | + + + | Preferred Language | Unknown | + + + | Marital Status | | + + + | Presybeterian Affiliation | 1077 | + + + | Race | White | + + + | Ethnic Group | Not or | + + + Author + + + | Author | [facility] | | | and [place] | + + + | Organization | [facility] | | [...] Providers + +------+ + | Care Chief Information Security Officer Name | Role | Phone | + +------+ + PCP | Unavailable | + +------+ + Encounter Details +--------+ + + + + | Date | Type | Department | Care Team | Description | +--------+ + + + + | 10/08/ | Hospital | [facility] | Olaf Nicole | | | 1998 - | Encounter | [facility] | MD [address] | | | | | CARDIAC TELEMETRY | [address] | | | 10/09/ | | [address] | [place] [address] | | | 2000 | | [place] | [phone] | | | | | [address] | | | | | | [phone] | | | +--------+ + + + [...]
--- OUTSIDE RECORDS SUMMARY | ~2020-07-16 | XMS | Encounter Summary ---
Demographics + + + | Address | [address] | | | [place] [address] | + + + | Home Phone | | + + + | Preferred Language | Unknown | + + + | Marital Status | | + + + | Advent Affiliation | 1077 | + + + | Race | White | + + + | Ethnic Group | Not or | + + + Author + + + | Author | [facility] | | | and [place] | + + + | Organization | [facility] | | | [...] Team Providers + +------+ + | Care Fur Scraper Name | Role | Phone | + [...] | [address] | [address] [facility] | | | | | [place] | [address] | | | | | [address] | [address] | | | | | [phone] | | | +--------+ + + + [...] - 1.030 | EXTERNAL | | | [place], | | | LAB | | | [...]
--- OUTSIDE RECORDS SUMMARY | ~2020-07-16 | XMS | Encounter Summary ---
Demographics + + + | Address | [address] | | | [place] [address] | + + + | Home Phone | | + + + | Preferred Language | Unknown | + + + | Marital Status | | + + + | Worship Affiliation | 1077 | + + + | Race | White | + + + | Ethnic Group | Not or | + + + Author + + + | Author | [facility] | | | and [place] | + + + | Organization | [facility] | | [...] Team Providers + +------+ + | Care Drafting Technician Name | Role | Phone | + +------+ + PCP | Unavailable | + +------+ + Encounter Details +--------+ + + + + | Date | Type | Department | Care Team | Description | +--------+ + + + + | 09/29/ | Hospital | [facility] | Zeb Giang | | | 2000 - | Encounter | [facility] | [address] [place] | | | | | CARDIAC TELEMETRY | [address] [place], [place] | | | 10/04/ | | [address] | [address] | | | 2000 | | [place] | | | | | | [address] | | | | | | [phone] | | | +--------+ + + + [...]
--- OUTSIDE RECORDS SUMMARY | ~2020-07-16 | XMS | Encounter Summary ---
Demographics + + + | Address | [address] | | | [place] [address] | + + + | Home Phone [...] + + + | Author | [facility] | + + + | Organization | [facility] | + + + | Address | Unknown | + + + | Phone | Unavailable | + + + Support + + +---------+ + | Name | Relationship | Address | Phone | + + +---------+ + | Beth Msa | ECON | Unknown | | + + +---------+ + Care Team Providers + +------+ + | Care Public Speaking Instructor Name | Role | Phone | + +------+ + | Gilberto Estrada MD | PCP | | + +------+ + Reason for Visit + + + | Reason | Comments | + + + | Care Coordination | | + + + Encounter Details +--------+ + + + + | Date | Type | Department | Care Team | Description | +--------+ + + + + | 07/24/ | Documentati | Infectious | Abril Shields, | Care Coordination | | 2018 | on | [facility] at [facility] | [address] | | | | | [address] | [facility] | | | | | [facility] | [place], [place] | | | | | [place], [address] [place] [address] | [address] | | | | | [place], [place] | [phone] | | | | | [address] | | | | | | [phone] | | | +--------+ + + + [...] this encounter Miscellaneous Notes Telephone Encounter - Mary Ramey PharmD - 07/24/2018 1:49 PM PDTSpoke with patient a nd his about cephalexin prescription to begin once IV therapy is complete. Confirmed ap pointment scheduled with Dr. Shields on 08/18 and encouraged them to call with any further questions. LARA Arzola PharmD 1 :52 PM PDTTelephone Encounter - Cortney Villafana RN - 07/24/2018 12:49 PM PDTConfirmed with Steve Ortiz that they have received orders. Confirmed with RN KARLA at [facility] that they will pull patient's line this afternoon. Cortney Villafana RN el ephone Encounter - Abril Shields MD - 07/24/2018 10:00 AM PDTFaxed orders to dc cefazol in and remove PICC. Sent prescription for cephalexin 500mg TID for chronic oral suppression to pt's pharmacy. doc umented in this encounter Plan of Treatment Not on filedocumented as of this encounter Visit Diagnoses Not on filedocumented in this encounter"
--- OUTSIDE RECORDS SUMMARY | ~2020-07-16 | XMS | Clinical Summary ---
Demographics + + + | Address | [address] | | | [place] [address] | + + + | Home Phone | | + + + | Preferred Language | Unknown | + + + | Marital Status | | + + + | Orthodox Affiliation | 1077 | + + + [...] Team Providers + +------+ + | Care Foxing Painter Name | Role | Phone | + +------+ + | Erin Forrester MD | PCP | | + +------+ + Allergies + [...] 0 | | | Activ | | acetaminophen-codein | mouth every 4 hours | | | | | e | | e (TYLENOL #2) | as needed for Pain. | | | | | | | 300-15 MG per tablet | | | | | | | + + + +---------+------+------+-------+ | allopurinol | Take 300 mg by mouth | | 0 | | | Activ | | (ZYLOPRIM) 300 mg | Daily. | | | | | e | | tablet | | | | | | | + + + +---------+------+------+-------+ | cholecalciferol | Take 1,000 Units by | | 0 | | | Activ | | (VITAMIN D-3) 1000 | mouth Daily. | | | | | e | | units TABS | | | | | | | + + + +---------+------+------+-------+ | folic acid | Take 400 mcg by | | 0 | | | Activ | | (FOLVITE) 400 MCG | mouth Daily. | | | | | e | | tablet | | | | | | | + + + +---------+------+------+-------+ | glimepiride | Take 4 mg by mouth | | 0 | | | Activ | | (AMARYL) 4 mg tablet | every morning | | | | | e | | | (before breakfast). | | | | | | + + + +---------+------+------+-------+ | isosorbide | Take 60 mg by mouth | | 0 | | | Activ | | mononitrate (IMDUR) | Daily. | | | | | e | | 60 mg ER tablet | | | | | | | + + + +---------+------+------+-------+ | losartan (COZAAR) | Take 50 mg by mouth | | 0 | | | Activ | | 50 mg tablet | Daily. | | | | | e | + + + +---------+------+------+-------+ | metFORMIN | Take 500 mg by mouth | | 0 | | | Activ | | (GLUCOPHAGE) 500 mg | Daily. | | | | | e | | tablet | | | | | | | + + + +---------+------+------+-------+ | metOLazone | Take 2.5 mg by mouth | | 0 | | | Activ | | (ZAROXOLYN) 2.5 mg | Daily. | | | | | e | | tablet | | | | | | | + + + +---------+------+------+-------+ | Multiple | Take 1 tablet by | | 0 | | | Activ | | Vitamins-Minerals | mouth Daily. | | | | | e | | (ADULT MULTIVITAMIN | | | | | | | | WITH MINERALS/IRON) | | | | | | | | TABS | | | | | | | + + + +---------+------+------+-------+ | | Apply topically | | 0 | | | Activ | | nystatin-triamcinolo | Twice daily as | | | | | e | | ne (MYCOLOG II) | needed. | | | | | | | ointment | | | | | | | + + + +---------+------+------+-------+ | fish oil 1,000 mg | Take 1,200 mg by | | 0 | | | Activ | | capsule | mouth 2 times daily. | | | | | e | + + + +---------+------+------+-------+ | simvastatin | Take 40 mg by mouth | | 0 | | | Activ | | (ZOCOR) 40 mg tablet | nightly. | | | | | e | + + + +---------+------+------+-------+ | warfarin | Take 2.5 mg by mouth | | 0 | | | Activ | | (COUMADIN) 2.5 mg | Daily. | | | | | e | | tablet | | | | | | | + + + +---------+------+------+-------+ | carvedilol (COREG) | Take 6.25 mg by | | 0 | | | Activ | | 6.25 mg tablet | mouth 2 times daily | | | | | e | | | (with breakfast & | | | | | | | | dinner). | | | | | | + + + +---------+------+------+-------+ | furosemide (LASIX) | Take 40 mg by mouth | | 0 | | | Activ | | 40 mg tablet | 2 times daily. | | | | | e | + + + +---------+------+------+-------+ | magnesium oxide | Take 400 mg by mouth | | 0 | | | Activ | | (MAG-OX) 400 mg | Daily. | | | | | e | | tablet | | | | | | | + + + +---------+------+------+-------+ | potassium chloride | Take 20 mEq by mouth | | 0 | | | Activ | | (K-DUR) 20 mEq ER | [...] 0 | | | Activ | | acetaminophen-codein | mouth every 4 hours | | | | | e | | e (TYLENOL #3) | as needed for Pain. | | | | | | | 300-30 mg per tablet | | | | | | | + + + +---------+------+------+-------+ | | acetaminophen 300 | | 0 | 08/2 | | Activ | | acetaminophen-codein | mg-codeine 30 mg | | | 20 | | e | | e (TYLENOL #3) | tablet Take 1 tablet | | | 18 | | | | 300-30 mg per tablet | every 6 hours by | | | | | | | | oral route. not on | | | | | | + + + +---------+------+------+-------+ | | acetaminophen/codein | | 0 | | | Activ | | acetaminophen-codein | e #3 300-30 mgtabs | | | | | e | | e (TYLENOL #3) | | | | | | | | 300-30 mg per tablet | | | | | | | + + + +---------+------+------+-------+ | | acetaminophen/codein | | 0 | | | Activ | | acetaminophen-codein | e 300-30 mg tabs | | | | | e | | e (TYLENOL #3) | | | | | | | | 300-30 MG per tablet | | | | | | | + + + +---------+------+------+-------+ | | | | 0 | 01/3 | | Activ | | acetaminophen-codein | | | | 1/20 | | e | | e (TYLENOL #3) | | | | 19 | | | | 300-30 MG per tablet | | | | | | | + + + +---------+------+------+-------+ | | advair diskus 250-50 | | 0 | | | Activ | | fluticasone-salmeter | mcg/dose aepb | | | | | e | | ol (ADVAIR DISKUS) | | | | | | | | 250-50 mcg/puff | | | | | | | | diskus inhaler | | | | | | | + + + +---------+------+------+-------+ | allopurinol | allopurinol 300 mg | | 0 | | | Activ | | (ZYLOPRIM) 300 mg | tabs | | | | | e | | tablet | | | | | | | + + + +---------+------+------+-------+ | allopurinol | | | 0 | 11/1 | | Activ | | (ZYLOPRIM) 300 mg | | | | 3/20 | | e | | tablet | | | | 18 | | | + + + +---------+------+------+-------+ | ALLOPURINOL PO | Take by mouth. | | 0 | | | Activ | | | | | | | | e | + + + +---------+------+------+-------+ | amoxicillin | amoxicillin 500 mg | | 0 | | | Activ | | (AMOXIL) 500 MG | caps | | | | | e | | capsule | | | | | | | + + + +---------+------+------+-------+ | amoxicillin | | | 0 | 12/0 | | Activ | | (AMOXIL) 500 MG | | | | 3/20 | | e | | capsule | | | | 18 | | | + + + +---------+------+------+-------+ | | amoxicillin/clavulan | | 0 | | | Activ | | amoxicillin-clavulan | ate potassium | | | | | e | | ate (AUGMENTIN) | 875-125 mg tabs not | | | | | | | 875-125 mg per | on | | | | | | | tablet | | | | | | | + + + +---------+------+------+-------+ | azithromycin | azithromycin 250 mg | | 0 | | | Activ | | (ZITHROMAX) 250 mg | tabs not on | | | | | e | | tablet | | | | | | | + + + +---------+------+------+-------+ | carvedilol (COREG) | carvedilol 12.5 mg | | 0 | | | Activ | | 12.5 mg tablet | tabs | | | | | e | + + + +---------+------+------+-------+ | carvedilol (COREG) | carvedilol 3.125 mg | | 0 | | | Activ | | 3.125 mg tablet | tabs | | | | | e | + + + +---------+------+------+-------+ | UNABLE TO FIND | cefazolin sodium 1 | | 0 | | | Activ | | | gm solr | | | | | e | + + + +---------+------+------+-------+ | UNABLE TO FIND | | | 0 | 09/1 | | Activ | | | | | | 3/20 | | e | | | | | | 18 | | | + + + +---------+------+------+-------+ | UNABLE TO FIND | cefazolin sodium 10 | | 0 | | | Activ | | | gm solr | | | | | e | + + + +---------+------+------+-------+ | UNABLE TO FIND | | | 0 | 09/2 | | Activ | | | | | | 0/20 | | e | | | | | | 18 | | | + + + +---------+------+------+-------+ | cephalexin | cephalexin 500 mg | | 0 | | | Activ | | (KEFLEX) 500 mg | caps | | | | | e | | capsule | | | | | | | + + + +---------+------+------+-------+ | cephalexin | | | 0 | 03/1 | | Activ | | (KEFLEX) 500 mg | | | | 8/20 | | e | | capsule | | | | 19 | | | + + + +---------+------+------+-------+ | ciprofloxacin | ciprofloxacin hcl | | 0 | | | Activ | | (CIPRO) 250 mg | 250 mg tabs | | | | | e | | tablet | | | | | | | + + + +---------+------+------+-------+ | ciprofloxacin | | | 0 | 09/2 | | Activ | | (CIPRO) 250 mg | | | | 4/20 | | e | | tablet | | | | 18 | | | + + + +---------+------+------+-------+ | | Inhale into the | | 0 | | | Activ | | fluticasone-salmeter | lungs. | | | | | e | | ol (ADVAIR, WIXELA | | | | | | | | INHUB) 250-50 | | | | | | | | mcg/puff diskus | | | | | | | | inhaler | | | | | | | + + + +---------+------+------+-------+ | furosemide (LASIX) | furosemide 20 mg | | 0 | | | Activ | | 20 mg tablet | tabs | | | | | e | + + + +---------+------+------+-------+ | glimepiride | glimepiride 4 mg | | 0 | | | Activ | | (AMARYL) 4 mg tablet | tabs | | | | | e | + + + +---------+------+------+-------+ | glipiZIDE | glipizide 10 mg tabs | | 0 | | | Activ | | (GLUCOTROL) 10 MG | | | | | | e | | tablet | | | | | | | + + + +---------+------+------+-------+ | glipiZIDE | | | 0 | 03/2 | | Activ | | (GLUCOTROL) 10 MG | | | | 3/20 | | e | | tablet | | | | 19 | | | + + + +---------+------+------+-------+ | glipiZIDE | glipizide 5 mg tabs | | 0 | | | Activ | | (GLUCOTROL) 5 mg | | | | | | e | | tablet | | | | | | | + + + +---------+------+------+-------+ | glipiZIDE | | | 0 | 10/1 | | Activ | | (GLUCOTROL) 5 mg | | | | 0/20 | | e | | tablet | | | | 18 | | | + + + +---------+------+------+-------+ | glyBURIDE | glyburide 2.5 mg | | 0 | | | Activ | | (DIABETA) 2.5 mg | tabs | | | | | e | | tablet | | | | | | | + + + +---------+------+------+-------+ | Multiple | ICaps AREDS | | 0 | | | Activ | | Vitamins-Minerals | | | | | | e | | (ICAPS AREDS 2 PO) | | | | | | | + + + +---------+------+------+-------+ | isosorbide | isosorbide | | 0 | | | Activ | | mononitrate (IMDUR) | mononitrate er 30 mg | | | | | e | | 30 mg ER tablet | tb24 | | | | | | + + + +---------+------+------+-------+ | isosorbide | isosorbide | | 0 | | | Activ | | mononitrate 60 mg ER | mononitrate er 60 mg | | | | | e | | tablet | tb24 | | | | | | + + + +---------+------+------+-------+ | isosorbide | | | 0 | 09/2 | | Activ | | mononitrate 60 mg ER | | | | 9/20 | | e | | tablet | | | | 18 | | | + + + +---------+------+------+-------+ | losartan (COZAAR) | losartan potassium | | 0 | | | Activ | | 50 mg tablet | 50 mg tabs | | | | | e | + + + +---------+------+------+-------+ | losartan (COZAAR) | | | 0 | 11/1 | | Activ | | 50 mg tablet | | | | 3/20 | | e | | | | | | 18 | | | + + + +---------+------+------+-------+ | LUTEIN-ZEAXANTHIN | Take by mouth. | | 0 | | | Activ | | PO | | | | | | e | + + + +---------+------+------+-------+ | MEDROL 2 MG tablet | | | 0 | 04/0 | | Activ | | | | | | 4/20 | | e | | | | | | 19 | | | + + + +---------+------+------+-------+ | metFORMIN | metformin hcl er 500 | | 0 | | | Activ | | (GLUCOPHAGE-XR) 500 | mg tb24 | | | | | e | | mg 24 hr tablet | | | | | | | + + + +---------+------+------+-------+ | metFORMIN | metformin | | 0 | | | Activ | | (GLUCOPHAGE-XR) 500 | hydrochloride er 500 | | | | | e | | mg 24 hr tablet | mg tb24 | | | | | | + + + +---------+------+------+-------+ | methotrexate 2.5 | methotrexate 2.5 mg | | 0 | | | Activ | | mg tablet | tabs | | | | | e | + + + +---------+------+------+-------+ | methotrexate 2.5 | | | 0 | 02/0 | | Activ | | mg tablet | | | | 5/20 | | e | | | | | | 19 | | | + + + +---------+------+------+-------+ | methylPREDNISolone | methylprednisolone 4 | | 0 | | | Activ | | (MEDROL) 4 mg | mg tabs | | | | | e | | tablet | | | | | | | + + + +---------+------+------+-------+ | methylPREDNISolone | | | 0 | 03/1 | | Activ | | (MEDROL) 4 mg | | | | 8/20 | | e | | tablet | | | | 19 | | | + + + +---------+------+------+-------+ | metOLazone 2.5 mg | metolazone 2.5 mg | | 0 | | | Activ | | tablet | tabs | | | | | e | + + + +---------+------+------+-------+ | metoprolol | metoprolol succinate | | 0 | | | Activ | | succinate | er 25 mg tb24 | | | | | e | | (TOPROL-XL) 25 mg 24 | | | | | | | | hr tablet | | | | | | | + + + +---------+------+------+-------+ | metoprolol | | | 0 | 04/0 | | Activ | | succinate | | | | 7/20 | | e | | (TOPROL-XL) 25 mg 24 | | | | 19 | | | | hr tablet | | | | | | | + + + +---------+------+------+-------+ | Multiple | Take by mouth. | | 0 | | | Activ | | Vitamins-Minerals | | | | | | e | | (MULTIVITAMIN PO) | | | | | | | + + + +---------+------+------+-------+ | niacin 500 mg | Take by mouth. | | 0 | | | Activ | | tablet | | | | | | e | + + + +---------+------+------+-------+ | nystatin | nystatin [id number] | | 0 | | | Activ | | (MYCOSTATIN) 100,000 | unit/ml susp | | | | | e | | units/mL suspension | | | | | | | + + + +---------+------+------+-------+ | nystatin | | | 0 | 12/0 | | Activ | | (MYCOSTATIN) 100,000 | | | | 4/20 | | e | | units/mL suspension | | | | 18 | | | + + + +---------+------+------+-------+ | Grygla-3 Fatty | Grygla 3 | | 0 | | | Activ | | Acids (OMEGA 3 PO) | | | | | | e | + + + +---------+------+------+-------+ | Grygla-3 Fatty | Take by mouth two | | 0 | | | Activ | | Acids (FISH OIL PO) | times daily. | | | | | e | + + + +---------+------+------+-------+ | omeprazole | omeprazole 20 mg | | 0 | | | Activ | | (PRILOSEC) 20 mg | cpdr | | | | | e | | capsule | | | | | | | + + + +---------+------+------+-------+ | potassium chloride | potassium chloride | | 0 | | | Activ | | (KLOR-CON) 10 MEQ | cr 10 meq tbcr | | | | | e | | ER tablet | | | | | | | + + + +---------+------+------+-------+ | potassium chloride | | | 0 | 03/1 | | Activ | | (KLOR-CON) 10 MEQ | | | | 9/20 | | e | | ER tablet | | | | 19 | | | + + + +---------+------+------+-------+ | potassium chloride | potassium chloride | | 0 | | | Activ | | (KLOR-CON) 10 mEq | er 10 meq tbcr | | | | | e | | CR tablet | | | | | | | + + + +---------+------+------+-------+ | potassium chloride | | | 0 | 09/0 | | Activ | | (KLOR-CON) 10 mEq | | | | 7/20 | | e | | CR tablet | | | | 18 | | | + + + +---------+------+------+-------+ | potassium chloride | potassium chloride | | 0 | | | Activ | | 20 mEq CR tablet | er 20 meq tbcr | | | | | e | + + + +---------+------+------+-------+ | potassium chloride | | | 0 | 09/2 | | Activ | | 20 mEq CR tablet | | | | 7/20 | | e | | | | | | 18 | | | + + + +---------+------+------+-------+ | simvastatin | simvastatin 40 mg | | 0 | | | Activ | | (ZOCOR) 40 mg tablet | tabs | | | | | e | + + + +---------+------+------+-------+ | torsemide | torsemide 20 mg tabs | | 0 | | | Activ | | (DEMADEX) 20 mg | | | | | | e | | tablet | | | | | | | + + + +---------+------+------+-------+ | torsemide | | | 0 | 02/2 | | Activ | | (DEMADEX) 20 mg | | | | 3/20 | | e | | tablet | | | | 19 | | | + + + +---------+------+------+-------+ | Cholecalciferol | Vitamin D | | 0 | | | Activ | | (VITAMIN D PO) | | | | | | e | + + + +---------+------+------+-------+ | warfarin | warfarin sodium 2.5 | | 0 | | | Activ | | (COUMADIN) 2.5 mg | mg tabs | | | | | e | | tablet | | | | | | | + + + +---------+------+------+-------+ | warfarin | | | 0 | 04/0 | | Activ | | (COUMADIN) 2.5 mg | | | | 05/15 | | e | | tablet | | | | 19 | | | + + + +---------+------+------+-------+ | clotrimazole | clotrimazole 1 % | | 0 | | | Activ | | (LOTRIMIN) 1% cream | topical cream APPLY | | | | | e | | | TO THE AFFECTED AND | | | | | | | | SURROUNDING AREAS OF | | | | | | | | SKIN BY TOPICAL | | | | | | | | ROUTE 2 TIMES PER | | | | | | | | DAY IN THE MORNING | | | | | | | | AND EVENING not on | | | | | | + + + +---------+------+------+-------+ | colchicine | Colcrys 0.6 mg | | 0 | | | Activ | | (COLCRYS) 0.6 mg | tablet Take 1 tablet | | | | | e | | tablet | every day by oral | | | | | | | | route. prn | | | | | | + + + +---------+------+------+-------+ | DOCOSAHEXAENOIC | Take 1 capsule by | | 0 | | | Activ | | ACID PO | mouth once daily. | | | | | e | + + + +---------+------+------+-------+ | Doxycycline | Take 100 mg by mouth | | 0 | | | Activ | | Monohydrate 150 MG | 2 (two) times | | | | | e | | CAPS | daily. | | | | | | + + + +---------+------+------+-------+ | eplerenone | Take 12.5 mg by | | 0 | 07/2 | | Activ | | (INSPRA) 25 mg | mouth once daily. | | | 6/20 | | e | | tablet | | | | 17 | | | + + + +---------+------+------+-------+ | | Inhale 1 puff into | | 0 | | | Activ | | fluticasone-salmeter | the lungs 2 (two) | | | | | e | | ol (ADVAIRPREMAELA | times daily. | | | | | | | INHUB) 250-50 | | | | | | | | mcg/puff diskus | | | | | | | | inhaler | | | | | | | + + + +---------+------+------+-------+ | glipiZIDE | Take 10 mg by mouth | | 0 | | | Activ | | (GLUCOTROL) 10 MG | 2 (two) times daily | | | | | e | | tablet | before meals. | | | | | | + + + +---------+------+------+-------+ | methylPREDNISolone | Take 1 mg by mouth | | 0 | 04/0 | | Activ | | (MEDROL) 2 MG | daily. | | | 4/20 | | e | | tablet | | | | 19 | | | + + + +---------+------+------+-------+ | metoprolol | Take 25 mg by mouth | | 0 | | | Activ | | succinate (KAPSPARGO | daily. | | | | | e | | SPRINKLE) 25 mg ER | | | | | | | | capsule | | | | | | | + + + +---------+------+------+-------+ | niacinamide 500 MG | Take 500 mg by mouth | | 0 | | | Activ | | tablet | 2 (two) times daily | | | | | e | | | with meals. | | | | | | + + + +---------+------+------+-------+ | omeprazole | | | 0 | 04/1 | | Activ | | (PRILOSEC) 20 mg | | | | 05/15 | | e | | capsule | | | | 19 | | | + + + +---------+------+------+-------+ | potassium chloride | potassium chloride | | 0 | | | Activ | | (MICRO-K) 10 mEq CR | ER 10 mEq | | | | | e | | capsule | capsule,extended | | | | | | | | release Take 3 | | | | | | | | capsules every day | | | | | | | | by oral route. | | | | | | + + + +---------+------+------+-------+ | | | | 2 | 01/3 | | Activ | | promethazine-codeine | | | | 11/15 | | e | | (PHENERGAN WITH | | | | 19 | | | | CODEINE) 6.25-10 | | | | | | | | mg/5 mL liquid | | | | | | | + + + +---------+------+------+-------+ | docusate-senna | Take 1 tablet by | | 0 | 08/2 | | Activ | | (SENOKOT-S) 50-8.6 | mouth two times | | | 1/20 | | e | | mg per tablet | daily. | | | 18 | | | + + + +---------+------+------+-------+ | torsemide | Take 1 tablet by | | 0 | 01/2 | | Activ | | (DEMADEX) 20 mg | mouth daily. | | | 4/20 | | e | | tablet | | | | 19 | | | + + + +---------+------+------+-------+ | triamcinolone | Apply to affected | | 0 | | | Activ | | (KENALOG) 0.1% cream | area three times | | | | | e | | | daily. Apply thin | | | | | | | | film to affected | | | | | | | | areas. | | | | | | + + + +---------+------+------+-------+ | allopurinol | allopurinol 300 mg | | 0 | | | Activ | | (ZYLOPRIM) 300 mg | tablet Take 1 tablet | | | | | e | | tablet | every day by oral | | | | | | | | route. current | | | | | | + + + +---------+------+------+-------+ | carvedilol (COREG) | TAKE ONE TABLET BY | | 0 | 04/0 | | Activ | | 12.5 mg tablet | MOUTH TWICE DAILY | | | 9/20 | | e | | | | | | 18 | | | + + + +---------+------+------+-------+ | carvedilol (COREG) | carvedilol 3.125 mg | | 0 | | | Activ | | 3.125 mg tablet | tabs | | | | | e | + + + +---------+------+------+-------+ | cephalexin | Take 1 capsule by | | 0 | 03/1 | | Activ | | (KEFLEX) 500 mg | mouth every eight | | | 8/20 | | e | | capsule | hours. Indications: | | | 19 | | | | | bone/joint infection | | | | | | + + + +---------+------+------+-------+ | cholecalciferol | Take 1,000 Units by | | 0 | | | Activ | | (CHOLECALCIFEROL) | mouth once daily. | | | | | e | | 1000 units TABS | | | | | | | + + + +---------+------+------+-------+ | cholecalciferol | Take 1,000 Units by | | 0 | | | Activ | | (CHOLECALCIFEROL) | mouth daily. | | | | | e | | 1000 units TABS | | | | | | | + + + +---------+------+------+-------+ | folic acid 1 mg | folic acid 1 mg | | 0 | | | Activ | | tablet | tablet Take 1 tablet | | | | | e | | | every day by oral | | | | | | | | route. current | | | | | | + + + +---------+------+------+-------+ | furosemide (LASIX) | furosemide 20 mg | | 0 | | | Activ | | 20 mg tablet | tabs | | | | | e | + + + +---------+------+------+-------+ | glimepiride | glimepiride 4 mg | | 0 | | | Activ | | (AMARYL) 4 mg tablet | tablet Take 1 tablet | | | | | e | | | every day by oral | | | | | | | | route. current | | | | | | + + + +---------+------+------+-------+ | isosorbide | Take 1 tablet by | | 0 | 04/1 | | Activ | | mononitrate 60 mg ER | mouth daily. | | | 0/20 | | e | | tablet | | | | 18 | | | + + + +---------+------+------+-------+ | isosorbide | isosorbide | | 0 | | | Activ | | mononitrate (IMDUR) | mononitrate ER 30 mg | | | | | e | | 30 mg ER tablet | tablet,extended | | | | | | | | release 24 hr Take 1 | | | | | | | | tablet every day by | | | | | | | | oral route. | | | | | | + + + +---------+------+------+-------+ | losartan (COZAAR) | losartan potassium | | 0 | | | Activ | | 50 mg tablet | 50 mg tabs | | | | | e | + + + +---------+------+------+-------+ | metFORMIN | Take 500 mg by mouth | | 0 | | | Activ | | (GLUCOPHAGE) 500 mg | 2 (two) times daily | | | | | e | | tablet | with meals. | | | | | | + + + +---------+------+------+-------+ | metFORMIN | metformin ER 500 mg | | 0 | | | Activ | | (GLUMETZA) 500 MG 24 | 24 hr | | | | | e | | hr tablet | tablet,extended | | | | | | | | release Take 1 | | | | | | | | tablet every day by | | | | | | | | oral route. | | | | | | + + + +---------+------+------+-------+ | metOLazone 2.5 mg | metolazone 2.5 mg | | 0 | | | Activ | | tablet | tablet Take 1 tablet | | | | | e | | | every day by oral | | | | | | | | route. | | | | | | + + + +---------+------+------+-------+ | Multiple | Take 1 tablet by | | 0 | | | Activ | | Vitamins-Minerals | mouth. | | | | | e | | (EYE VITAMINS) CAPS | | | | | | | + + + +---------+------+------+-------+ | | Apply topically 2 | | 0 | | | Activ | | nystatin-triamcinolo | (two) times daily as | | | | | e | | ne (MYCOLOG II) | needed. | | | | | | | ointment | | | | | | | + + + +---------+------+------+-------+ | | nystatin-triamcinolo | | 0 | | | Activ | | nystatin-triamcinolo | ne 100,000 | | | | | e | | ne (MYCOLOG II) | unit/g-0.1 % topical | | | | | | | cream | cream APPLY TO THE | | | | | | | | AFFECTED AREA(S) BY | | | | | | | | TOPICAL ROUTE 2 | | | | | | | | TIMES PER DAY IN | | | | | | | | THEMORNING AND | | | | | | | | EVENING prn | | | | | | + + + +---------+------+------+-------+ | Grygla-3 Fatty | Take 1,200 mg by | | 0 | | | Activ | | Acids (FISH OIL) | mouth 2 (two) times | | | | | e | | 1200 MG CAPS | daily. | | | | | | + + + +---------+------+------+-------+ | potassium chloride | Take 10 mEq by mouth | | 0 | 01/2 | | Activ | | (KLOR-CON) 10 MEQ | daily. Pt is taking | | | 4/20 | | e | | ER tablet | 3 tablets daily. | | | 19 | | | + + + +---------+------+------+-------+ | simvastatin | simvastatin 40 mg | | 0 | | | Activ | | (ZOCOR) 40 mg tablet | tablet Take 1 tablet | | | | | e | | | every day by oral | | | | | | | | route. | | | | | | + + + +---------+------+------+-------+ | warfarin | Coumadin 2.5 mg | | 0 | | | Activ | | (COUMADIN) 2.5 mg | tablet Take 1 tablet | | | | | e | | tablet | every day by oral | | | | | | | | route. 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 Pulse generator: [employer]. Model number A2DR01, | | serial number [id number]. Placed because of symptomatic sinus | | [...] block.2. RV | | lead: Medtronic, model #047806, serial number [id number]. RA | | lead: Medtronic, model #046463, serial number [id number]. This | | is an Medtronic MRI compatible pacemaker. Placed in September | | 2016. Dr Ha.01/13/2018Changes this session: A. Amp increased [...] is planning to | | go to [place] after [place]. He is on warfarin at this time, [...] distal | | inferior-apical ischemia, LVEF 53%.[employer], | | 10/10/2016: sinus rhythm, with frequent PVC's, no VT, however, | | 1st degree AVB, 2nd degree AVB (Type 1 and 2), 3.5sec asystole, | | bundle branch block.ECG, 09/12/2016: sinus rhythm, 78bpm, 1st | | degree AVB, old inferior NV, RBBB/LAFB. | + + Family History + + +------+ + | [...] + + + | Blood Pressure | 130/70 | 03/10/2019 9:44 AM | | | | | PDT | | + + + + + | Pulse | 79 | 03/10/2019 9:44 AM | | | | | PDT | | + + + + + | Temperature | 36.3 C (97.3 F) | 02/10/2019 1:37 PM | | | | | PDT | | + + + + + | Respiratory Rate | 16 | 02/10/2019 1:52 PM | | | | | PDT | | + + + + + | Oxygen Saturation | 97% | 02/10/2019 1:52 PM | | | | | PDT | | + + + + + | Inhaled Oxygen | - | - | | | Concentration | | | | + + + + + | Weight | 87.8 kg (193 lb 8 | 03/10/2019 9:44 AM | | | | oz) | PDT | | + + + + + | Height | 170.2 cm (5' 7") | 02/10/2019 12:32 PM | | | | | PDT | | + + + + + | Body Mass Index | 30.31 | 02/10/2019 12:32 PM | | | [...] + + + + | Medication | 05/25/ | | | | Management | 8 [...] + + + + | Med Mgmt: ALT | | 01/13/20 | | | | 8 | 18, | | | | | 11/17/19 | | | | | 18, | | | | | 02/10/20 | | | | | 17, | | | | | Addition | | | | | al | | | | | history | | | | | exists | | + + + + + | Med Mgmt: AST | | 01/13/20 | | | | 8 | 18, | | | | | 11/17/19 | | | | | 18, | | | | | 12/06/19 | | | | | 17, | [...] + | Med Mgmt: INR | | 02/11/20 | | | | 9 | 19, | | | | | 02/09/20 | | | | | 19, | | | | | 10/24/20 | | | | | 16, | | | | | Addition | | | | | al | | | | | history | | | | | exists | | + + + + + | Adult Annual | | | | | Wellness Visit | 9 | | | + + + + + | Med Mgmt: Cr | | 06/08/20 | | | | 9 | 19, | | | | | 03/08/20 | | | | | 19, | | | | | 11/26/19 | | | | | 19, | | | | | Addition | | | | | al | | | | | history | | | | | exists | | + + + + + | Med Mgmt: HCT | | 06/08/20 | | | | 9 | 19, | | | | | 03/08/20 | | | | | 19, | | | | | 11/18/19 | | | | | 19, | | | | | Addition | | | | | al | | | | | history | | | | | exists | | + + + + + | Med Mgmt: HGB | | 06/08/20 | | | | 9 | 19, | | | | | 03/08/20 | | | | | 19, | | | | | 11/18/19 | | | | | 19, | | | | | Addition | | | | | al | | | | | history | | | | | exists | | + + + + + | Med Mgmt: PLT | | 06/08/20 | | | | 9 | 19, | | | | | 03/08/20 | | | | | 19, | | | | | 11/18/19 | | | | | 19, | | | | | Addition | | | | | al | | | | | history | | | | | exists | | + + + + + | Med Mgmt: RBC | | 06/08/20 | | | | 9 | 19, | | | | | 03/08/20 | | | | | 19, | | | | | 11/18/19 | | | | | 19, | | | | | Addition | | | | | al | | | | | history | | | | | exists | | + + + + + | Med Mgmt: WBC | | 06/08/20 | | | | 9 | 19, | | | | | 03/08/20 | | | | | 19, | | | | | 11/18/19 | | | | | 19, | | | | | Addition | | | | | al | | | | | history | | | | | exists | | + + + + + | Med Mgmt: K | | 06/08/20 | | | | 0 | 19, | | | | | 03/08/20 | | | | | 19, | | | | | 11/26/19 | | | | | 19, | | | | | Addition | | | | | al | | | | | history | | | | | exists | | + + + + + | Med Mgmt: Na | | 06/08/20 | | | | 0 | 19, | | | | | 03/08/20 | | | | | 19, | | | | | 11/26/19 | | | | | 19, | | | | | Addition | | | | | al | | | | | history | | | | | exists | | + + + + + | Med Mgmt: Uric Acid | | 06/08/20 | | | | 0 | 19, | | | | | 02/13/20 | | | | | 18, | | | | | 01/13/20 | | | | | 18 | | + + + + + | Med Mgmt: eGFR | | 06/08/20 | | | | 0 | 19, | | | | | 03/08/20 | | | | | 19, | | | | | 11/26/19 | | | | | 19, | | | | | Addition | [...] | | 2017 | -500 | | [id number]: Qty: 1 on | | | | | | /[id number] | | 09/07/2013 by Aris, | | | | | | 500 | | Drew Mendoza MD | | | | | | /[id number] | + +------+------+ +--------+--------+--------+ | Patella Triathlon 38mm 11mm | | | | | 04/25/ | 5551-G | | Height - [id number]: | | | | | 2017 | [...] | | 2017 | -402 | | [id number]: Qty: 1 on | | | | [...] - | | | | | | /[id number] | | [id number]: Qty: 1 on | | | | | | 001 | | 09/07/2013 by Aris, | | | | | | /[id number] | | Drew Mendoza MD | | | | | | 1 | + +------+------+ +--------+--------+--------+ | Insert Tibial Ricardo Rivers | | | | | 01/23/ | 5531-G | | 5 13mm - [id number]: | | | | | 2017 | -513 | | Qty: 1 on 09/07/2013 by | | | | | | /[id number] | | Drew Hurst MD | | | | | | 513 | | | | | | | | /[id number] | | | | | | | | 0 | + +------+------+ +--------+--------+--------+ Results Not on filefrom Last 3 Months Insurance + +--------+ +--------+ +---------+--------+ | Payer | Benefi | Subscriber | Effect | Phone | Address | Type | | | t Plan | ID | kai | | | | | | / | | Dates | | | | | | Group | | | | | | + +--------+ +--------+ +---------+--------+ | CIGNA | CIGNA | [id number] | 10/27/19 | [phone] | | Indemn [...] +--------+ +---------+--------+ | MEDICARE | MEDICA | [id number] | 01/26/20 | [phone] | | Medica | | | RE | | 15-Pre | 5 | | re | | | PART A | | sent | | | | | | AND B | | | | | | + +--------+ +--------+ +---------+--------+ | MEDICARE | MEDICA | [id number] | 04/26/20 | [phone] | | Medica | | | RE | | 03-Pre | 5 | | re | | | PART A | | sent | | | | | | AND B | | | | | | + +--------+ +--------+ +---------+--------+ | CIGNA | CIGNA | [id number] | 10/27/19 | [phone] | | Indemn [...] Person | Self | [birth year] | [address] | | | al/Fam | | 1940 | [phone] | [place] [address] | | | afshan | | | 4 (Home) | | + +--------+ +--------+ + + | Duane Mas | Person | Self [birth year] | | [address] | | | al/Fam | | 1940 | [phone] | [place] [address] | | | afshan | | | 4 (Home) | | + +--------+ +--------+ + + | Duane Mas | Person | Self | [birth year] | | [address] | | | al/Fam | | 1940 | [phone] | [place] [address] | | | afshan | | | 4 (Home) | | + +--------+ +--------+ + + Advance Directives + + + + + | Type | Date Recorded | Patient | Explanation | | | | Adjusto Writer Operator | | + + + + + | Power of | | | | | Cargo And Ramp Services Manager | | | | + + + + + | Advance | 07/31/2017 10:59 | | | | Directive | AM | | | + + + + +
--- OUTSIDE RECORDS SUMMARY | ~2020-07-16 | XMS | Encounter Summary ---
Demographics + + + | Address | [address] | | | [place] [address] | + + + | Home Phone | | + + + | Preferred Language | Unknown | + + + | Marital Status | | + + + | Jew Affiliation | 1077 | + + + | Race | White | + + + | Ethnic Group | Not or | + + + Author + + + | Author | [facility] | | | and [place] | + + + | Organization | [facility] | | | and [...] Team Providers + +------+ + | Care Assistant To The Dean Name | Role | Phone | + +------+ + PCP | Unavailable | + +------+ + Encounter Details +--------+ + + + + | Date | Type | Department | Care Team | Description | +--------+ + + + + | 09/07/ | Hospital [facility] | Drew Hurst | | | 2012 - | Encounter | [facility] [address] | [address] | | | | | [address] | [place] | | | 09/09/ | | [facility] | JANINA [place]OWERS [address] | | | 2012 | | [address] | [phone] | | | | | [phone] | | | +--------+ + + + [...] Summaries by Drew Hurst MD at 09/09/13 8493 Author: Drew Hurst MD Service: Orthopedic Surgery Author Type: Physician Filed: 09/09/13 0941 Date of Service: 09/09/13 0939 Status: Signed Correctional Nurse: Drew Hurst MD (Physician) [facility] Service: Orthopedic Surgery Discharge Summary Date of [...] - TOTAL; Surgeon: Drew Hurst MD; Location: [facility] MAIN OR; Servic e: Orthopedics; Laterality: Right; [...] up: 7-10 days with Drew Hurst MD (engineer third assistant Alison Tompkins) [facility] [address] [place] [address] . 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 All discharge instructions to includ e medications and appointments reviewed with patient and his . Prescriptions given to wi fe. PIV removed, catheter intact, bandage applied. All questions answered. onver zoe Transaction, Provider Unknown - 09/09/2013 11:37 AM PST Case Management by Rita Borja RN at 09/09/13 455 Author: Rita Borja RN Service: (none) Author Type: Registered Nurse Filed: 09/09/13 1138 Date of Service: 09/09/131136 Status: Signed Correctional Nurse: Rita Borja RN (Registered Nurse) HEMANT Iqbal [...] Date of Service: 09/09/13 1032 Status: Signed Correctional Nurse: Marta Lopez RN (Registered Nurse) CHF education completed with patient and his , packet given to patient. All questions a nswered onver zoe Transaction, Provider Unknown - 09/09/2013 10:10 AM PST Progress Notes by Shayla Hennessy LPN at 09/09/13 1010 Author: Shayla Hennessy LPN Service: (none) Author Type: Registered Nurse Filed: 09/09/13 1010 Date of Service: 09/09/13 1010 Status: Signed Correctional Nurse: Shayla Hennessy LPN (Registered Nurse) Visited with pt this am regarding warfarin education. [facility]. Pt has no questions regarding warfarin at this time. onver zoe Transaction, Provider Unknown - 09/09/2013 9:55 AM PST Progress Notes by Irina Cooley PTA at 09/09/13 0955 Author: Irina Cooley PTA Service: (none) Author Type: Mobile Device Developer Filed: 09/09/13 1310 Date of Service: 09/09/13 0955 Status: Signed Correctional Nurse: Irina Cooley PTA (Mobile Device Developer) 09/09/13 0955 PT Last Visit PT Received [...] 09/09/13938 Date of Service: 09/09/13937 Status: Signed Correctional Nurse: Drew uHrst MD (Physician) Subjective: Post-Operative Day: 2 Status [...] Will get INR checked on Friday in [place]. DREW HURST MD 09/09/2013 9:38 AM onversio n Transaction, Provider Unknown - 09/08/2013 1:16 PM PSTFormatting of this note might be di fferent from the original. Progress Notes by Ale Yee RD, CDE at 09/08/13 1316 Author: Ale Yee RD, VEDA Service: (none) Author Type: Learning And Development Analyst Filed: 09/08/13 3022 Date of Service: 09/08/131315 Status: Signed Correctional Nurse: Ale Yee RD, CDE (Learning And Development Analyst) Met with pt and spouse. Reports he [...] and metformin. Ale Yee RD, MPH, CDE, Learning And Development Analyst 09/08/2013 1:39 PM onver zoe Transaction, Provider Unknown - 09/08/2013 12:35 PM PST Progress Notes by Mireya Hoyos PT at 09/08/13 1235 Author: Mireya Hoyos PT Service: (none) Author Type: Physical Therapist Filed: 09/08/13 1410 Date of Service: 09/08/13 1235 Status: Signed Correctional Nurse: Mireya Hoyos PT (Physical Therapist) 09/08/13 1235 PT Last Visit PT Received On 09/08/13 Reason for Treatment Knee replacement Requires PT Follow Up Yes Follow up PT Only? No Assistance Required 1 person Cloth Desizing Range Tender Needed No Precautions LE Precaution(s) RLE (WBAT [...] exercise: Marching, LAQ, Heel raises, Glut squeezes: [id number] Standing exercise: Marching, Hip Abd, Hip ext: [id number] Patients actively encouraged each other throughout activities [...] Orthopedic Surgery Author Type: Physician Filed: 09/08/13 1140 Date of Service: 09/08/13 1143 Status: Signed Correctional Nurse: Drew Hurst MD (Physician) Subjective: Post-Operative Day: [...] Author: ABBIE Delgado Service: (none) Author Type: Plumber Gasfitter Filed: 09/08/1347 Date of Service: 09/08/13845 Status: Signed Correctional Nurse: ABBIE Delgado (Plumber Gasfitter) CM met with pt for discharge planning. Pt is 73 years old and lives with his in a 2-le alan home with a ramp at the main entrance. Pt has a [id number]-yxhoxi. Pt owns a walker. Pt's w mike will assist with his daily living activities including personal hygiene, grooming, dress ing, feeding, cooking, transportation and ambulation. Pt had no resource concerns at this ti me. CM will continue to follow as needed. Discharge Plan: Home. Eric Sanabria FIRE BEHAVIOR ANALYST 09/08/13 0846 Discharge Planning Evaluation Admitting Diagnosis [...] Notes by Mireya Hoyos PT at 09/08/13 0803 Author: Mireya Hoyos PT Service: (none) Author Type: Physical Therapist Filed: 09/08/13 9466 Date of Service: 09/08/13 0890 Status: Signed Correctional Nurse: Mireya Hoyos PT (Physical Therapist) 09/08/13 0875 PT Last Visit PT Received On 09/08/13 Reason for Treatment Knee replacement Requires PT Follow Up Yes Follow up PT Only? No Assistance Required 1 person Cloth Desizing Range Tender Needed No Precautions LE Precaution(s) RLE (WBAT [...] 09/07/132032 Date of Service: 09/07/132030 Status: Signed Correctional Nurse: Jeimy Ayala RN (Registered Nurse) Spoke with [...] 161 Date of Service: 09/07/131610 Status: Signed Correctional Nurse: ILSA Wallace (Occupational Therapist) 09/07/13 1343 Plan Requires OT Follow Up Unavailable (Pt with PT ) Pt unavailable upon OT arrival. Plan to re-attempt evaluation/treatment as census permits ILSA Wallace 09/07/2013 onver zoe Transaction, Provider Unknown - 09/07/2013 1:25 PM PST Progress Notes by Gilberto Carl, PT at 09/07/13 1325 Author: Gilberto Carl PT Service: (none) Author Type: Physical Therapist Filed: 09/07/13 2545 Date of Service: 09/07/13 1325 Status: Signed Correctional Nurse: Gilberto Carl PT (Physical Therapist) 09/07/13 1325 PT Last Visit PT Received On 09/07/13 Reason for Treatment Knee replacement Requires PT Follow Up Yes PT Eval/Reassessment Date 09/07/13 Cloth Desizing Range Tender Needed No Precautions LE Precaution(s) RLE (WBAT) [...] chair with back Prior Function Level of [place] Modified independent with functional mobility (Pt used SPC prior to sx) Lives With Spouse Employment Retired for age ([employer] full-time) RUE Assessment RUE Assessment WFL (rotator [...] Follow Up Yes PT Eval/Reassessment Date 09/07/13 Cloth Desizing Range Tender Needed No Precautions LE Precaution(s) RLE (WBAT) [...] Date of Service: 09/07/13 1257 Status: Signed Correctional Nurse: Shelly Rojo RPH (Pharmacist) Renal Dosing Monitoring: [...] H&P by Drew Hurst MD at 09/06/13 5171 Author: Drew Hurst MD Service: Orthopedic Surgery Author Type: Physician Filed: 09/06/13 9926 Date of Service: 09/06/131624 Status: Signed Correctional Nurse: Drew Hurst MD (Physician) Subjective: Patient is [...] Patient has been treat ed conservatively with buly-chc-wdikmrv NSAIDs and activity modification. Patient currently rates [...] Care by Jeimy Ayala RN at 09/07/13 1239 Author: Jeimy Ayala RN Service: (none) Author Type: Registered Nurse Filed: 09/07/13 1234 Date of Service: 09/07/131235 Status: Signed Correctional Nurse: Jeimy Ayala RN (Registered Nurse) Problem: Safety [...] 1001 Date of Service: 09/07/13957 Status: Signed Correctional Nurse: Drew Hurst MD (Physician) [facility] Service: Orthopedic Surgery Operative Report PREOPERATIVE DIAGNOSIS: right knee DJD POSTOPERATIVE DIAGNOSIS: right knee DJD PROCEDURE: right total knee arthroplasty with navigation SURGEON: Drew Hurst MD SBA BUSINESS DEVELOPMENT OFFICER: Kaur Del Angel MD ANESTHESIA: General ANESTHESIOLOGIST: Gopal AGUILAR FLUIDS: 1500cc ESTIMATED BLOOD LOSS: minimal TOURNIQUET TIME: 90 min Right thigh URINE OUTPUT: 250cc COMPLICATIONS: none IMPLANTS: [place] Triathlon Total Knee system 1- Size 4 [...] cutting block and made my cuts: anterior, acidity tester ior, anterior chamfer, and posterior chamfer. I removed the bony fragments, then placed a l aminar white shoe examiner in the flexion gap and removed the [...] of three liters sterile saline with pulse polo coach. There was no patellar maltracking. Floseal was [...] extubated. The patient was placed [facility] bed, and taken to the recovery room [...]
--- OUTSIDE RECORDS SUMMARY | ~2020-07-16 | XMS | Encounter Summary ---
Demographics + + + | Address | [address] | | | [place] [address] | + + + | Home Phone | | + + + | Preferred Language | Unknown | + + + | Marital Status | | + + + | Cheondoism Affiliation | 1077 | + + + | Race | White | + + + | Ethnic Group | Not or | + + + Author + + + | Author | [facility] | | | and [place] | + + + | Organization | [facility] | | | [...] Team Providers + +------+ + | Care Excellence Manager Name | Role | Phone | + +------+ + PCP | Unavailable | + +------+ + Encounter Details +--------+ + + + + | Date | Type | Department | Care Team | Description | +--------+ + + + + | 09/12/ | Hospital [facility] | Olaf Nicole | | | 1999 - | Encounter | [facility] | MD [address] | | | | | CARDIAC TELEMETRY | [address] | | | 09/14/ | | [address] | [place] [address] | | | 1999 | | [place] | [phone] | | | | | [address] | | | | | | [phone] | | | +--------+ + + + [...]
--- OUTSIDE RECORDS SUMMARY | ~2020-07-16 | XMS | Encounter Summary ---
Demographics + + + | Address | [address] | | | [place] [address] | + + + | Home Phone [...] Team Providers + +------+ + | Care Drop Tester Name | Role | Phone | + +------+ + | Gilberto Estrada MD | PCP | | + +------+ + Reason for Visit + +--------+ + | Reason | Onset | Comments | | | Date | | + +--------+ + | RN Care Management | 07/09/ | Resumed care at home post [facility] from [facility] | | | 2017 | | + +--------+ + | Infectious disease | 07/09/ | | | | 2018 | | + +--------+ + Encounter Details +--------+ + + + + | Date | Type | Department | Care Team | Description | +--------+ + + + + | 07/09/ | Telephone | Infectious | Jaye Winchester, | RN Care Management | | 2018 | | Diseases at [facility] | RN [address] | (Resumed care at | | | | [address] | [facility] | home post DC from | | | | [facility] | [place], [place] | [facility]); | | | | [place], 3rd floor | [address] | Infectious disease | | | | [place], [place] | [phone] | | | | | [address] | | | | | | [phone] | | | +--------+ + + + [...] Telephone Encounter - Jaye Winchester RN - 07/09/2018 2:39 PM Luca, from [facility] , called to inform us that the patient was DC'd from [facility] yesterday and is back on service with them. The frequency of cefazolin was changed to q12 hours due to increa sed kidney functions on q8 dosing. Dr. Shields is aware and is fine with this change. She w ill see the patient in clinic on the . No other changes to the plan need to be made. Jaye Winchester RN documented in this en counter Plan of Treatment Not on filedocumented as of this encounter Visit Diagnoses Not on filedocumented in this encounter"
--- OUTSIDE RECORDS SUMMARY | ~2020-07-16 | XMS | Encounter Summary ---
Demographics + + + | Address | [address] | | | [place] [address] | + + + | Home Phone | | + + + | Preferred Language | Unknown | + + + | Marital Status | Unknown | + + + | Baptist Affiliation | PRO | + + + [...] Providers + +------+ + | Care Title Department Manager Name | Role | Phone | [...] | | | | | [address] [facility] | | | | | | [place] | | | | | | [id number] | | | | | | | [...] | DERMATOPATH | | | MNT) | [address] CLINICAL | | OLOGY | | | [...] + + + + + | [facility] DEPARTMENT | [address] | [place] [address] | | | PATHOLOGY | [address] | | | + + + + + | [facility] | [address] | [place] [address] | | | DERMATOPATHOLOGY | [address] | | | + + + + + documented in this encounter Visit Diagnoses Not on filedocumented in this encounter"
--- OUTSIDE RECORDS SUMMARY | ~2020-07-16 | XMS | Encounter Summary ---
Demographics + + + | Address | [address] | | | [place] [address] | + + + | Home Phone [...] Team Providers + +------+ + | Care Burring Machine Operator Name | Role | Phone | + +------+ + | Gilberto Estrada MD | PCP | | + +------+ + Encounter Details +--------+ + + + + | Date | Type | Department | Care Team | Description | +--------+ + + + + | 06/11/ | Emergency | [facility] Emergency | [place], | | | 2017 | | Department [address] | [address] | | | | | [address] | [place], [place] | | | | | [facility] | [address] | | | | | [place], [place] | [phone] | | | | | [address] | | | | | | [phone] | | | +--------+ + + + [...] | | 0 | | | | [id number] | mouth once daily. | | | [...] Leon who advised PT to come to [facility] ED. Advised Dr. Yen to call [...]
--- OUTSIDE RECORDS SUMMARY | ~2020-07-16 | XMS | Encounter Summary ---
Demographics + + + | Address | [address] | | | [place] [address] | + + + | Home Phone [...] Team Providers + +------+ + | Care Center Consultant Name | Role | Phone | + +------+ + | Gilberto Estrada MD | PCP | | + +------+ + Encounter Details +--------+ + + + + | Date | Type | Department | Care Team | Description | +--------+ + + + + | 07/14/ | Hospital | Radiology/Imaging | [place], | | | 2017 | Encounter | at [facility] | [address] | | | | | [address] | [place], [place] | | | | | [facility] [address] | [address] | | | | | [place], [place] | [phone] | | | | | [address] | | | | | | [phone] | | | +--------+ + + + [...] | | 0 | | | | [id number] | mouth once daily. | | | [...] Dictation initiated: Patricia | | | MD Frnaces 07/14/2018 1:17 PM | | + + [...]
--- OUTSIDE RECORDS SUMMARY | ~2020-07-16 | XMS | Encounter Summary ---
Demographics + + + | Address | [address] | | | [place] [address] | + + + | Home Phone [...] Providers + +------+ + | Care Fur Stretcher Name | Role | Phone | + +------+ + | Erin Forrester MD | PCP | | + +------+ + Encounter Details +--------+ + + + + | Date | Type | Department | Care Team | Description | +--------+ + + + + | 09/12/ | Orders Only | [facility] | Robel Ricci | | | 2015 | | CARDIOLOGY [place] | MD [address] | | | | | [address] | [address] | | | | | [place] | [place] [address] | | | | | [address] | [phone] | | | | | [phone] | | | +--------+ + + + [...] | | | | | by ICA Furman Read Only, | | | | | | ICA Kiran (502), | | | | | | make up editor Demetri Norton | | | | | | (253) on 10/08/2016 | | | | | | 8:28:04 AM | | | | + + + + + + + + | Specimen | + + | | + + + + + | Narrative | Performed At | + + + | Historically converted procedure from [facility] environment | EXTERNAL LAB | + + + + +---------+ + + | Performing | Address | City/State/Zipcode | Phone Number | | Organization | | | | + +---------+ + + | EXTERNAL LAB | | | | + +---------+ + + documented in this encounter Visit Diagnoses Not on filedocumented in this encounter"
--- OUTSIDE RECORDS SUMMARY | ~2020-07-16 | XMS | Encounter Summary ---
Demographics + + + | Address | [address] | | | [place] [address] | + + + | Home Phone | | + + + | Preferred Language | Unknown | + + + | Marital Status | | + + + | Anglican Affiliation | 1077 | + + + | Race | White | + + + | Ethnic Group | Not or | + + + Author + + + | Author | [facility] | | | and [place] | + + + | Organization | [facility] | | [...] Team Providers + +------+ + | Care Echocardiographer Name | Role | Phone | + [...] 02/10/ | Anesthesia | JOSE RILEY | Domingo Manny | | | 2019 | Event | [facility] | MD [place] [address] | | | | | [address] | [address] | | | | | [address] [address] | [place] [address] | | | | | [address] | [phone] | | | | | [phone] | | | +--------+ + + + + Anesthesia Record + + + + + | Procedure Name | Responsible | Anesthesia Start | Anesthesia Stop Time | | | Anesthesiologist | Time | | + + + + + | EGD DIL (N/A Mouth) | | | | + + + + + + + | No events on file. | + + +------+ | Meds | +------+ + +-------+ | Name | Total | + +-------+ | lactated ringers (LR) infusion | 0 mL | + +-------+ + + | No agents on file. | + + + + | No blood administrations on file. | + + + + | No LDAs on file. | + + documented in this encounter Social [...] as of this encounter [place] Notes Anesthesia Preprocedure Evaluation - Manny Lane MD - 02/08/2019 4:34 PM PDTFor matting of this note might be different from the original. ANESTHESIA PREANESTHESIA EVALUATION Duane Mas 78 y.o. male 1940 [id number] Procedure(s): EGD DIL (N/A Mouth) Medical,anesthesia, drug, allergy histories reviewed, NPO status verified. ECG reviewed. Labs reviewed. (+) perioperative beta-afua/statin given/taken. . Review of Systems / Med History Anesthesia History EGD in 2017 - did well with TIVA. Cardiovascular (+) orthopnea, pacemaker (Medtronic) (+) Dysrhythmias: (+) hypertension, (+) coronary fior ry disease (s/p PTCA and CABG) of elim ira artery. (+) congestive heart failure. . Pulmonary (+) shortness of breath (Laying flat). (+) sleep apnea. (+) Sleep apnea history/interventio ns: known. Endocrine (+) obesity: BMI (30-39) (+) Diabetes: [...] Other Pacemaker in place Anesthesia Plan ASA 3 (CAD, CHF, SEUN, Pacemaker) Type: TIVA, general. Induction: Intravenous. Potential problems: None anticipated. Monitors: Standard ASA monitors. Consent statement:Anesthetic plan, alternatives, risks and benefits discussed with patient and spouse. Risks discussed included (but were not limited to): pain, respiratory events, voice injury, dental injury, perioperative CV events, sore throat, nausea, heart problems,. Consenting person understands and agrees to proceed . PARQ. All questions answered in pre-op area before proceeding to GI suite - agrees to plan of TI VA with possibility of advanced airway if clinically indicated. Risk of aspiration and hypoxia with endoscopy under TIVA explicitly discussed and patient d esires to proceed. Tolerated previous EGD with nasal canula, low threshold for POM mask. INR 1.8 today, just upper margin of desired level for Dr. Smyth. Patient aware of potential increased risk of dilation (as discussed with Dr. Smyth) and he wishes to proceed. UPDATE - JUST BEFORE PROCEDURE, DR. SMYTH DECIDING TO POST-PONE AND RESCHEDULE PATIENT FOR THIS COMING WED . Electronically Signed by: Manny Lane MD ESig date/time: 02/08/2019 16:33 documented in t his encounter Plan of [...]
--- OUTSIDE RECORDS SUMMARY | ~2020-07-16 | XMS | Encounter Summary ---
Demographics + + + | Address | [address] | | | [place] [address] | + + + | Home Phone [...] Team Providers + +------+ + | Care Rn Immunology Name | Role | Phone | + [...] | | | | | [address] | [address] | | | | | [address] | [place] [address] | | | | | [address] | [phone] | | | | | [phone] | | | +--------+ + + + [...] EVALUATION Duane Mas 78 y.o. male 1940 [id number] Procedure(s): EGD DIL (N/A Mouth) Medical,anesthesia, drug, allergy histories reviewed, NPO status verified. ECG reviewed. Labs reviewed. (+) perioperative beta-afua/statin given/taken. . Review of Systems / Med History Anesthesia History EGD in 2017 - did well with TIVA. Cardiovascular (+) orthopnea, pacemaker (Medtronic) (+) Dysrhythmias: (+) hypertension, (+) coronary fior ry disease (s/p PTCA and CABG) of [place] artery. (+) congestive heart failure. . Pulmonary [...]
--- OUTSIDE RECORDS SUMMARY | ~2020-07-16 | XMS | Encounter Summary ---
Demographics + + + | Address | [address] | | | [place] [address] | + + + | Home Phone | | + + + | Preferred Language | Unknown | + + + | Marital Status | Unknown | + + + | Buddhism Affiliation | PRO | + + + | Race | White | + + + | Ethnic Group | Not or | + + + Author + + + | Author | [facility] | + + + | Organization | [facility] | + + + | Address | Unknown | + + + | Phone | Unavailable | + + + Support + + +---------+ + | Name | Relationship | Address | Phone | + + +---------+ + | Beth Mas | ECON | Unknown | | + + +---------+ + Care Team Providers + +------+ + | Care Tunnel Worker Name | Role | Phone | [...] [address] | | | | | [address] | [address] | | | | | [address] | [place], [place] | | | | | [place], [facility] floor | [address] | | | | | [place], [place] | [phone] | | | | | [address] | | | | | | [phone] | | | +--------+ + + + [...]
--- OUTSIDE RECORDS SUMMARY | ~2020-07-16 | XMS | Encounter Summary ---
Demographics + + + | Address | [address] | | | [place] [address] | + + + | Home Phone [...] Team Providers + +------+ + | Care Naturalization Examiner Name | Role | Phone | + [...] [facility] | | | | | | [facility] | | | | | | and Healing, | | | | | | Building [address], [address]th | | | | | | Floor [place], [place] | | | | | | [address] | | | | | | [phone] | | | +--------+ + + + [...] Dear | | | | | | [place]: [place] | | | | | | [...] [address] | [place] [address] | | | DERMATOPATHOLOGY | [address] | | | + + + + + | [facility] | Mail[address] | [place] [address] | | | DERMATOPATHOLOGY | [address] | | | + + + + + documented in this encounter Visit Diagnoses Not on filedocumented in this encounter"
--- OUTSIDE RECORDS SUMMARY | ~2020-07-16 | XMS | Encounter Summary ---
Demographics + + + | Address | [address] | | | [place] [address] | + + + | Home Phone | | + + + | Preferred Language | Unknown | + + + | Marital Status | | + + + | Rastafari Affiliation | 1077 | + + + | Race | White | + + + | Ethnic Group | Not or | + + + Author + + + | Author | [facility] | | | and [place] | + + + | Organization | [facility] | | [...] Team Providers + +------+ + | Care Airport Ramp Agent Name | Role | Phone | + [...] | | | | | | MD | | | | | | | ESOPHAGOGAST | | | | | | | RODUODENOSCO | | | | | | | PY TRANSORAL | | | | | | | DIAGNOSTIC | | | | | | | MD EGD | | | | | | | BALLOON | | | | | | | DILATION | | | | | | | ESOPHAGUS | | | | | | | <30 MM DIAM | | | | | | | MD | | | | | | [...] + + | 07/31/ | Hospital | [facility] | Willow Colin MD | | | 2017 | Encounter | [facility] CTR [facility] | [address] | | | | | [address] | [address] [place], | | | | | [place] | [place] [address] | | | | | [address] | [phone] | | | | | [phone] | | | +--------+ + + + [...] fluids. 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 electronic page makeup system operator omeprazole at [place], [place]. documented in this encounter Medications at [...] Electronically signed Willow Colin MD 07/31/2017 14:06 [facility] 2:1 1 PM PDTOp Note - [...] + | [facility] | [address] | [place] | [phone] | | [facility] | | [address] | | | - LABORATORY | | [...] Negative for Helicobacter pylori with HE stain. [facility]:caw:[id number] GROSS | | | DESCRIPTION: [...] technical and professional components were performed by [employer] | | | [employer], [address] [place] [address] | | | (Caddie: Don Morrell D.O.; IA#: [id number]). | | | Diagnostician: Gavin Michaud MD Pathologist Electronically | | | Signed 08/01/2017 | | + + + + +---------+ + + | Performing | Address | City/State/Zipcode | Phone Number | | Organization | | | | + +---------+ + + | [facility] | | | | | [facility] [...] ONCE PRN, Wheezing, | | | Starting [facility] 07/31/17 at 1242, | | [...]
--- OUTSIDE RECORDS SUMMARY | ~2020-07-16 | XMS | Encounter Summary ---
Demographics + + + | Address | [address] | | | [place] [address] | + + + | Home Phone | | + + + | Preferred Language | Unknown | + + + | Marital Status | | + + + | Adventist Affiliation | 1077 | + + + | Race | White | + + + | Ethnic Group | Not or | + + + Author + + + | Author | [facility] | | | and [place] | + + + | Organization | [facility] | | [...] Team Providers + +------+ + | Care Digital Media Director Name | Role | Phone | [...] 2018 | | [address] | [address] [facility] | | | | | [place] | [address] | | | | | [address] | [address] | | | | | [phone] | | | +--------+ + + + [...] - 1.030 | EXTERNAL | | | [place], | | | LAB | | | [...]
--- OUTSIDE RECORDS SUMMARY | ~2020-07-16 | XMS | Encounter Summary ---
Demographics + + + | Address | [address] | | | [place] [address] | + + + | Home Phone [...] Team Providers + +------+ + | Care Button Clamper Name | Role | Phone | + +------+ + | Erin Forrester MD | PCP | | + +------+ + Encounter Details +--------+ + + + + | Date | Type | Department | Care Team | Description | +--------+ + + + + | 12/06/ | Orders Only | [facility] | Conversion | | | 2017 | | CARDIOLOGY [facility] | Transaction, | | | | | [address] | Provider Unknown | | | | | [place] | [phone] | | | | | [address] | | | | | | [phone] | | | +--------+ + + + [...]
--- OUTSIDE RECORDS SUMMARY | ~2020-07-16 | XMS | Encounter Summary ---
Demographics + + + | Address | [address] | | | [place] [address] | + + + | Home Phone [...] Team Providers + +------+ + | Care Control Technician Name | Role | Phone | [...] | | | | [address] | [place], [place] | | | | | [place], [facility] floor | [address] | | | | | [place], [place] | [phone] | | | | | [address] | | | | | | [phone] | | | +--------+--------+ + + + [...]
--- OUTSIDE RECORDS SUMMARY | ~2020-07-16 | XMS | Encounter Summary ---
Demographics + + + | Address | [address] | | | [place] [address] | + + + | Home Phone | | + + + | Preferred Language | Unknown | + + + | Marital Status | | + + + | Sabianist Affiliation | 1077 | + + + | Race | White | + + + | Ethnic Group | Not or | + + + Author + + + | Author | [facility] | | | and [place] | + + + | Organization | [facility] | | | [...] Team Providers + +------+ + | Care Cashier Assistant Name | Role | Phone | [...] 2019 | | [address] | BUILDING INSULATION SUPERVISOR [address] | | | | | [place] | [place] | | | | | [address] | [place] | | | | | [phone] | [address] | | | | | | [phone] | | | | | | | [...] | | | | using the MDRD IDMD | | | | | | traceable [...]
--- OUTSIDE RECORDS SUMMARY | ~2020-07-16 | XMS | Encounter Summary ---
Demographics + + + | Address | [address] | | | [place] [address] | + + + | Home Phone [...] + + + | Author | [facility] | | | and [place] | + + + | Organization | [facility] | | | [...] Team Providers + +------+ + | Care Can Technician Name | Role | Phone | [...] | | | | | | | NE | | | | | | | ESOPHAGOGAST | | | | | | | RODUODENOSCO | | | | | | | PY TRANSORAL | | | | | | | DIAGNOSTIC | | | | | | | NE EGD | | | | | | | TRANSORAL | | | | | | | BIOPSY | | | | | | | SINGLE/MULTI | | | | | | | PLE NE EGD | | | | | | | BALLOON | | | | | | | DILATION | | | | | | | ESOPHAGUS | | | | | | | <30 MM DIAM | | | | | | | NE | | | | | | | [...] + + + + | 02/08/ | [facility] | [facility] | Willow Colin MD | | | 2019 | Encounter | MED CTR [place] PRE OP | [address] | | | | | [address] | [address] [place], | | | | | [place] [address] | [place] [address] | | | | | [phone] | [phone] | | | | | | | [...] [address] | [place] | [phone] | | [facility] | | [address] | | | - LABORATORY | | [...]
--- OUTSIDE RECORDS SUMMARY | ~2020-07-16 | XMS | Encounter Summary ---
Demographics + + + | Address | [address] | | | [place] [address] | + + + | Home Phone | | + + + | Preferred Language | Unknown | + + + | Marital Status | | + + + | Oriental Orthodox Affiliation | 1077 | + + + | Race | White | + + + | Ethnic Group | Not or | + + + Author + + + | Author | [facility] | | | and [place] | + + + | Organization | [facility] | [...] Team Providers + +------+ + | Care Basket Patcher Name | Role | Phone | + +------+ + PCP | Unavailable | + +------+ + Encounter Details +--------+ + + + + | Date | Type | Department | Care Team | Description | +--------+ + + + + | 10/12/ | Hospital | [facility] | Olaf Nicole | | | 1997 - | Encounter | [facility] | MD [address] | | | | | CARDIAC TRANSPLANT | [address] | | | 10/13/ | | [address] | [place] [address] | | | 1997 | | [place] | [phone] | | | | | [address] | | | | | | [phone] | | | +--------+ + + + [...]
--- OUTSIDE RECORDS SUMMARY | ~2020-07-16 | XMS | Encounter Summary ---
Demographics + + + | Address | [address] | | | [place] [address] | + + + | Home Phone | | + + + | Preferred Language | Unknown | + + + | Marital Status | Unknown | + + + | Religion Affiliation | PRO | + + + | Race | White | + + + | Ethnic Group | Not or | + + + Author + + + | Author | [facility] | + + + | Organization | [facility] | + + + | Address | Unknown | + + + | Phone | Unavailable | + + + Support + + +---------+ + | Name | Relationship | Address | Phone | + + +---------+ + | Beth Mas | ECON | Unknown | | + + +---------+ + Care Team Providers + +------+ + | Care Stone Cutter Name | Role | Phone | [...] [address] | | | | | [address] | [address] | | | | | [address] | [place], [place] | | | | | [place], [facility] floor | [address] | | | | | [place], [place] | [phone] | | | | | [address] | | | | | | [phone] | | | +--------+ + + + [...]
--- OUTSIDE RECORDS SUMMARY | ~2020-07-16 | XMS | Encounter Summary ---
Demographics + + + | Address | [address] | | | [place] [address] | + + + | Home Phone | | + + + | Preferred Language | Unknown | + + + | Marital Status | Unknown | + + + | Advent Affiliation | PRO | + + + | Race | White | + + + | Ethnic Group | Not or | + + + Author + + + | Author | [facility] | + + + | Organization | [facility] | + + + | Address | Unknown | + + + | Phone | Unavailable | + + + Support + + +---------+ + | Name | Relationship | Address | Phone | + + +---------+ + | Beth Mas | ECON | Unknown | | + + +---------+ + Care Team Providers + +------+ + | Care Mortgage Assistant Name | Role | Phone | [...] [address] | | | | | [address] | [address] | | | | | [address] | [place], [place] | | | | | [place], [facility] floor | [address] | | | | | [place], [place] | [phone] | | | | | [address] | | | | | | [phone] | | | +--------+ + + + [...]
--- OUTSIDE RECORDS SUMMARY | ~2020-07-16 | XMS | Encounter Summary ---
Demographics + + + | Address | [address] | | | [place] [address] | + + + | Home Phone [...] + + + | Author | [facility] | | | and [place] | + + + | Organization | [facility] | | | [...] Team Providers + +------+ + | Care Theater Usher Name | Role | Phone | + +------+ + PCP | Unavailable | + +------+ + Encounter Details +--------+ + + + + | Date | Type | Department | Care Team | Description | +--------+ + + + + | 09/07/ | Hospital | [facility] | Drew Hurst | | | 2012 - | Encounter | [facility] [address] | [address] | | | | | [place] | [address] | | | 09/09/ | [facility] | [address] [address] | | | 2012 | | [address] | [phone] | | | | | [phone] | | | +--------+ + + + [...] Summaries by Drew Hurst MD at 09/09/13 4263 Author: Drew Hurst MD Service: Orthopedic Surgery Author Type: Physician Filed: 09/09/13 0941 Date of Service: 09/09/13 0939 Status: Signed Email Designer: Drew Hurst MD (Physician) [facility] Service: Orthopedic Surgery Discharge Summary [...] - TOTAL; Surgeon: Drew Hurst MD; Location: [facility] MAIN OR; Servic e: Orthopedics; [...] up: 7-10 days with Drew Hurst MD (acute care assistant Alison Tompkins) [facility] [address] [place] [id number] . 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 All discharge instructions to includ e medications and appointments reviewed with patient and his . Prescriptions given to wi fe. PIV removed, catheter intact, bandage applied. All questions answered. onver zoe Transaction, Provider Unknown - 09/09/2013 11:37 AM PST Case Management by Rita Borja RN at 09/09/13 153 Author: Rita Borja RN Service: (none) Author Type: Registered Nurse Filed: 09/09/13 1138 Date of Service: 09/09/131136 Status: Signed Email Designer: Rita Borja RN (Registered Nurse) HEMANT Iqbal [...] Date of Service: 09/09/13 1032 Status: Signed Email Designer: Marta Lopez RN (Registered Nurse) CHF education completed with patient and his , packet given to patient. All questions a nswered onver zoe Transaction, Provider Unknown - 09/09/2013 10:10 AM PST Progress Notes by Shayla Hennessy LPN at 09/09/13 1010 Author: Shayla Hennessy LPN Service: (none) Author Type: Registered Nurse Filed: 09/09/13 1010 Date of Service: 09/09/13 1010 Status: Signed Email Designer: Shayla Hennessy LPN (Registered Nurse) Visited with pt this am regarding warfarin education. [facility]. Pt has no questions regarding warfarin at this time. onver zoe Transaction, Provider Unknown - 09/09/2013 9:55 AM PST Progress Notes by Irina Cooley PTA at 09/09/13 0955 Author: Irina Cooley PTA Service: (none) Author Type: Dish Stacker Filed: 09/09/13 1310 Date of Service: 09/09/13 0955 Status: Signed Email Designer: Irina Cooley PTA (Dish Stacker) 09/09/13 0955 PT Last Visit PT Received [...] 09/09/13938 Date of Service: 09/09/13937 Status: Signed Email Designer: Drew Hurst MD (Physician) Subjective: Post-Operative Day: [...] Will get INR checked on Friday in [place]. DREW HURST MD 09/09/2013 9:38 AM onversio n Transaction, Provider Unknown - 09/08/2013 1:16 PM PSTFormatting of this note might be di fferent from the original. Progress Notes by Ale Yee RD, CDE at 09/08/13 1316 Author: Ale Yee RD, VEDA Service: (none) Author Type: Wholesale Loan Processor Filed: 09/08/13 2845 Date of Service: 09/08/131315 Status: Signed Email Designer: Ale Yee RD, CDE (Wholesale Loan Processor) Met with pt and spouse. Reports he [...] and metformin. Ale Yee RD, MPH, CDE, Wholesale Loan Processor 09/08/2013 1:39 PM onver zoe Transaction, Provider Unknown - 09/08/2013 12:35 PM PST Progress Notes by Mireya Hoyos PT at 09/08/13 1235 Author: Mireya Hoyos PT Service: (none) Author Type: Physical Therapist Filed: 09/08/13 1410 Date of Service: 09/08/13 1235 Status: Signed Email Designer: Mireya Hoyos PT (Physical Therapist) 09/08/13 1235 PT Last Visit PT Received On 09/08/13 Reason for Treatment Knee replacement Requires PT Follow Up Yes Follow up PT Only? No Assistance Required 1 person Epic Anesthesia Analyst Needed No Precautions LE Precaution(s) RLE (WBAT [...] exercise: Marching, LAQ, Heel raises, Glut squeezes: [id number] Standing exercise: Marching, Hip Abd, Hip ext: [id number] Patients actively encouraged each other throughout activities [...] Orthopedic Surgery Author Type: Physician Filed: 09/08/13 1146 Date of Service: 09/08/13 1143 Status: Signed Email Designer: Drew Hurst MD (Physician) Subjective: Post-Operative Day: [...] Author: ABBIE Delgado Service: (none) Author Type: Seat Cover Maker Filed: 09/08/1347 Date of Service: 09/08/13845 Status: Signed Email Designer: ABBIE Delgado (Seat Cover Maker) CM met with pt for discharge planning. Pt is 73 years old and lives with his in a 2-le alan home with a ramp at the main entrance. Pt has a [id number]. Pt owns a walker. Pt's w mike will assist with his daily living activities including personal hygiene, grooming, dress ing, feeding, cooking, transportation and ambulation. Pt had no resource concerns at this ti me. CM will continue to follow as needed. Discharge Plan: Home. Eric Sanabria CARDIAC REHABILITATION SPECIALIST 09/08/13 0846 Discharge Planning Evaluation Admitting Diagnosis [...] (none) Author Type: Physical Therapist Filed: 09/08/13 8379 Date of Service: 09/08/13 0861 Status: Signed Email Designer: Mireya Hoyos PT (Physical Therapist) 09/08/13 0833 PT Last Visit PT Received On 09/08/13 Reason for Treatment Knee replacement Requires PT Follow Up Yes Follow up PT Only? No Assistance Required 1 person Epic Anesthesia Analyst Needed No Precautions LE Precaution(s) RLE (WBAT [...] 09/07/132032 Date of Service: 09/07/132030 Status: Signed Email Designer: Jeimy Ayala RN (Registered Nurse) Spoke with [...] 161 Date of Service: 09/07/131610 Status: Signed Email Designer: ILSA Wallace (Occupational Therapist) 09/07/13 1343 Plan Requires OT Follow Up Unavailable (Pt with PT ) Pt unavailable upon OT arrival. Plan to re-attempt evaluation/treatment as census permits ILSA Wallace 09/07/2013 onver zoe Transaction, Provider Unknown - 09/07/2013 1:25 PM PST Progress Notes by Gilberto Carl, PT at 09/07/13 1325 Author: Gilberto Carl PT Service: (none) Author Type: Physical Therapist Filed: 09/07/13 8925 Date of Service: 09/07/13 1325 Status: Signed Email Designer: Gilberto Carl PT (Physical Therapist) 09/07/13 1325 PT Last Visit PT Received On 09/07/13 Reason for Treatment Knee replacement Requires PT Follow Up Yes PT Eval/Reassessment Date 09/07/13 Epic Anesthesia Analyst Needed No Precautions LE Precaution(s) RLE (WBAT) [...] chair with back Prior Function Level of [place] Modified independent with functional mobility (Pt used SPC prior to sx) Lives With Spouse Employment Retired for age ([employer] full-time) RUE Assessment RUE Assessment WFL (rotator [...] Follow Up Yes PT Eval/Reassessment Date 09/07/13 Epic Anesthesia Analyst Needed No Precautions LE Precaution(s) RLE (WBAT) [...] Date of Service: 09/07/13 1257 Status: Signed Email Designer: Shelly Rojo RPH (Pharmacist) Renal Dosing Monitoring: [...] H&P by Drew Hurst MD at 09/06/13 3899 Author: Drew Hurst MD Service: Orthopedic Surgery Author Type: Physician Filed: 09/06/13 9762 Date of Service: 09/06/131624 Status: Signed Email Designer: Drew Hurst MD (Physician) Subjective: Patient is [...] Patient has been treat ed conservatively with xayr-tdq-[id number] NSAIDs and activity modification. Patient currently rates [...] Care by Jeimy Ayala RN at 09/07/13 1234 Author: Jeimy Ayala RN Service: (none) Author Type: Registered Nurse Filed: 09/07/13 1230 Date of Service: 09/07/131235 Status: Signed Email Designer: Jeimy Ayala RN (Registered Nurse) Problem: Safety [...] 1001 Date of Service: 09/07/13957 Status: Signed Email Designer: Drew Hurst MD (Physician) [facility] Service: Orthopedic Surgery Operative Report PREOPERATIVE DIAGNOSIS: right knee DJD POSTOPERATIVE DIAGNOSIS: right knee DJD PROCEDURE: right total knee arthroplasty with navigation SURGEON: Drew Hurst MD INSTRUMENT MAKER AND REPAIRER: Kaur Del Angel MD ANESTHESIA: General ANESTHESIOLOGIST: Gopal AGUILAR FLUIDS: 1500cc ESTIMATED BLOOD LOSS: minimal TOURNIQUET TIME: 90 min Right thigh URINE OUTPUT: 250cc COMPLICATIONS: none IMPLANTS: [place] Triathlon Total Knee system 1- Size 4 [...] cutting block and made my cuts: anterior, stoneworker ior, anterior chamfer, and posterior chamfer. I removed the bony fragments, then placed a l aminar career guidance technician in the flexion gap and removed [...] of three liters sterile saline with pulse academic affairs specialist. There was no patellar maltracking. Floseal was [...] extubated. The patient was [facility], and taken to the recovery [...]
--- OUTSIDE RECORDS SUMMARY | ~2020-07-16 | XMS | Encounter Summary ---
Demographics + + + | Address | [address] | | | [place] [address] | + + + | Home Phone | | + + + | Preferred Language | Unknown | + + + | Marital Status | Unknown | + + + | Holiness Affiliation | PRO | + + + [...] Team Providers + +------+ + | Care Sludge Filtration Operator Name | Role | Phone | [...] floor | | | | | | [place], [place] | | | | | | [address] | | | +--------+ + + + [...]
--- OUTSIDE RECORDS SUMMARY | ~2020-07-16 | XMS | Encounter Summary ---
Demographics + + + | Address | [address] | | | [place] [address] | + + + | Home Phone [...] Team Providers + +------+ + | Care Cushion Gum Applicator Name | Role | Phone | + +------+ + PCP | Unavailable | + +------+ + Encounter Details +--------+ + + + + | Date | Type | Department | Care Team | Description | +--------+ + + + + | 10/24/ | Hospital | [facility] | Conversion | Asystole ([facility]) | | 2016 - | Encounter | MEDICAL CENTER | Transaction, | | | | | CLINICAL DECISION | Provider Unknown | | | 10/25/ | | [address] [facility] | | | | 2016 | | [place] | | | | | | [address] | Robel Ricci Ken | | | | | [phone] | MD [address] | | | | | | [address] | | | | | | [place] [address] | | | | | | [phone] | | | | | | | [...] 1742 Date of Service: 10/25/16956 Status: Signed Outside Cutter: Mikal Ha MD (Physician) [facility] Service: Cardiology Discharge Summary Date of [...] Date of Service: 10/24/16 1631 Status: Signed Outside Cutter: Ariana Johnson RN (Registered Nurse) Arm sling applied to left arm. docume nted in this encounter H&P Notes Mikal Ha - 10/24/2016 1:01 PM PST H&P by Mikal Ha MD at 10/24/16 1301 Author: Mikal Ha MD Service: Cardiology Author Type: Physician Filed: 10/24/16 1301 Date of Service: 10/24/16 1301 Status: Signed Outside Cutter: Mikal Ha MD (Physician) [facility] Service: Cardiology Pre-Operative History & Physical [...] this, however is planning to go to [place] after . He is on warf mustapha [...] mild distal inferior-apical ischemia, LVEF 53%. 14-Day Equipment Engineering Technician, 10/10/2016: sinus rhythm, with frequent PVC's, no VT, however, 1st degree AVB, 2nd degree AVB (Type 1 and 2), 3.5sec asystole, bundle branch block. ECG, 09/12/2016: sinus rhythm, 78bpm, 1st degree AVB, old inferior NE, RBBB/LAFB. Essential hypertension Hypertension, controlled, continue current [...] this, however is planning to go to [place] after . He is on warfarin at [...] topically 2 (two) times daily as needed. Turrell-3 Fatty Acids (FISH OIL) 1200 MG CAPS [...] (none) Author Type: Registered Nurse Filed: 10/25/16 1021 Date of Service: 10/25/16 1027 Status: Signed Outside Cutter: Amy Broderick RN (Registered Nurse) Daily care [...] 10/24/162316 Date of Service: 10/24/162316 Status: Signed Outside Cutter: Erick Ramos RN (Registered Nurse) No falls [...] 10/24/162315 Date of Service: 10/24/162315 Status: Signed Outside Cutter: Erick Ramos RN (Registered Nurse) Daily care [...] | | | Fingerstick | performed at [facility];[address] | | LAB | | | | [address];[place], [place] | | | | | | [address] | | | | + + + [...] EXTERNAL LAB | | Testing performed at [facility];[address] [place] [address];[place] [address] MRSA PCR | | | NEGATIVE Testing performed at | | | [facility];[address] [place] [address];[place] [address] | | + + + + +---------+ [...] | | | | | performed at [facility] | | | | | | [address];[place], [place] | | | | | | [address] | | | | + + + [...] EXTERNAL | | | | performed at [facility];[address] | K/uL | LAB | | | | [address];[place] | | | | | | [address] | | | | + + + + + + | Non- | 5.01Comment: Testing | 4.20 - 5.70 | EXTERNAL | | | Red Blood | performed at [facility];[address] | M/uL | LAB | | | Cells | [address];[place] | | | | | Counted | [address] | | | | + + + + + + | Hemoglobin | 15.0Comment: Testing | 13.2 - 17.0 | EXTERNAL | | | | performed at [facility];888 | g/dL | LAB | | | | [address];[place] | | | | | | [address] | | | | + + + + + + | Hematocrit, | 44.8Comment: Testing | 39.0 - 50.0 % | EXTERNAL | | | POC | performed at [facility];[address] | | LAB | | | | [address];[place] | | | | | | [address] | | | | + + + + + + | MCV | 89.6Comment: Testing | 80.0 - 100.0 fl | EXTERNAL | | | | performed at [facility];[address] | | LAB | | | | [address];[place] | | | | | | [address] | | | | + + + + + + | MCH | 29.9Comment: Testing | 27.0 - 34.0 pg | EXTERNAL | | | | performed at [facility];[address] | | LAB | | | | [address];[place] | | | | | | [address] | | | | + + + + + + | MCHC | 33.4Comment: Testing | 32.0 - 35.5 | EXTERNAL | | | | performed at [facility];888 | g/dL | LAB | | | | [address];[place] | | | | | | [address] | | | | + + + + + + | RDW-CV | 50.3Comment: Testing | 37 - 53 fl | EXTERNAL | | | | performed at [facility];[address] | | LAB | | | | [address];[place] | | | | | | [address] | | | | + + + + + + | Platelet | 111 (L)Comment: Testing | 150 - 400 K/uL | EXTERNAL | | | Count | performed at [facility];[address] | | LAB | | | Plasma | [address];[place] | | | | | | [address] | | | | + + + + + + | MPV | 9.1Comment: Testing | fl | EXTERNAL | | | | performed at [facility];[address] | | LAB | | | | [address];[place] | | | | | | [address] | | | | + + + + + + | Differentia | AUTOMATEDComment: | | EXTERNAL | | | l Type | Testing performed at | | LAB | | | | [address];[address];[place] [address] | | | | + + + + + + | % Segmented | 63.78Comment: Testing | % | EXTERNAL | | | | performed at [facility];[address] | | LAB | | | Neutrophils | [address];[place] | | | | | | [address] | | | | + + + + + + | % | 24.36Comment: Testing | % | EXTERNAL | | | Lymphocytes | performed at [facility];[address] | | LAB | | | | [address];[place] | | | | | | [address] | | | | + + + + + + | % Monocytes | 8.57Comment: Testing | % | EXTERNAL | | | | performed at [facility];[address] | | LAB | | | | [address];[place] | | | | | | [address] | | | | + + + + + + | % | 2.68Comment: Testing | % | EXTERNAL | | | Eosinophils | performed at [facility];[address] | | LAB | | | | [address];[place] | | | | | | [address] | | | | + + + + + + | % Basophils | 0.61Comment: Testing | % | EXTERNAL | | | | performed at [facility];[address] | | LAB | | | | [address];[place] | | | | | | [address] | | | | + + + + + + | Absolute | 5.19Comment: Testing | 1.90 - 7.40 | EXTERNAL | | | Segmented | performed at [facility];[address] | K/uL | LAB | | | Neutrophils | [address];[place] | | | | | | [address] | | | | + + + + + + | Absolute | 1.98Comment: Testing | 1.00 - 3.90 | EXTERNAL | | | Lymphocytes | performed at [facility];[address] | K/uL | LAB | | | | [address];[place] | | | | | | [address] | | | | + + + + + + | Absolute | 0.70Comment: Testing | 0.00 - 0.80 | EXTERNAL | | | Monocytes | performed at [facility];[address] | K/uL | LAB | | | | [address];[place] | | | | | | [address] | | | | + + + + + + | Absolute | 0.22Comment: Testing | 0.00 - 0.50 | EXTERNAL | | | Eosinophils | performed at [facility];[address] | K/uL | LAB | | | | [address];[place] | | | | | | [address] | | | | + + + + + + | Absolute | 0.05Comment: Testing | 0.00 - 0.10 | EXTERNAL | | | Basophils | performed at [facility];[address] | K/uL | LAB | | | | [address];[place] | | | | | | [address] | | | | + + + [...] EXTERNAL | | | | performed at [facility];888 | mmol/L | LAB | | | | [address];[place] | | | | | | [address] | | | | + + + + + + | K | 3.9Comment: Testing | 3.5 - 4.9 | EXTERNAL | | | | performed at [facility];[address] | mmol/L | LAB | | | | [address];[place] | | | | | | [address] | | | | + + + + + + | Cl | 103Comment: Testing | 99 - 109 mmol/L | EXTERNAL | | | | performed at [facility];[address] | | LAB | | | | [address];[place] | | | | | | [address] | | | | + + + + + + | CO2 | 32Comment: Testing | 23 - 32 mmol/L | EXTERNAL | | | | performed at [facility];[address] | | LAB | | | | [address];[place] | | | | | | [address] | | | | + + + + + + | Anion Gap | 9Comment: Testing | 5 - 20 mmol/L | EXTERNAL | | | | performed at [facility];[address] | | LAB | | | | [address];[place] | | | | | | [address] | | | | + + + + + + | Glucose, | 121 (H)Comment: Testing | 65 - 99 mg/dL | EXTERNAL | | | Fasting | performed at [facility];[address] | | LAB | | | | [address];[place] | | | | | | [address] | | | | + + + + + + | BUN | 24Comment: Testing | 8 - 25 mg/dL | EXTERNAL | | | | performed at [facility];[address] | | LAB | | | | [address];[place] | | | | | | [address] | | | | + + + + + + | Creatinine | 1.2Comment: Testing | 0.70 - 1.30 | EXTERNAL | | | | performed at [facility];[address] | mg/dL | LAB | | | | [address];[place] | | | | | | [address] | | | | + + + + + + | BUN/Creatin | 20Comment: Testing | | EXTERNAL | | | ine Ratio | performed at [facility];[address] | | LAB | | | | [address];[place] | | | | | | [address] | | | | + + + + + + | Calcium | 8.7Comment: Testing | 8.5 - 10.5 | EXTERNAL | | | | performed at [facility];[address] | mg/dL | LAB | | | | [address];[place] | | | | | | [address] | | | | + + + [...] | | | | | | at [facility];[address] [place] [address] | | | | | | [facility];[place] [address] | | | | + + + [...]
--- OUTSIDE RECORDS SUMMARY | ~2020-07-16 | XMS | Encounter Summary ---
Demographics + + + | Address | [address] | | | [place] [address] | + + + | Home Phone [...] Team Providers + +------+ + | Care Gang Mower Operator Name | Role | Phone | + +------+ + | Gilberto Estrada MD | PCP | | + +------+ + Encounter Details +--------+ + + + + | Date | Type | Department | Care Team | Description | +--------+ + + + + | 07/14/ | Documentati | Infectious | Abril Shields, | | | 2018 | on | Diseases at [facility] | [address] | | | | | [address] | [address] | | | | | Loop Physician[address] | [place], [place] | | | | | [place], [facility] floor | [address] | | | | | [place], [place] | [phone] | | | | | [address] | | | | | | [phone] | | | +--------+ + + + [...]
--- OUTSIDE RECORDS SUMMARY | ~2020-07-16 | XMS | Encounter Summary ---
Demographics + + + | Address | [address] | | | [place] [address] | + + + | Home Phone | | + + + | Preferred Language | Unknown | + + + | Marital Status | | + + + | Buddhist Affiliation | 1077 | + + + [...] Providers + +------+ + | Care Can Vacuum Tester Name | Role | Phone | + +------+ + | Erin Forrester MD | PCP | | + +------+ + Encounter Details +--------+ + + + + | Date | Type | Department | Care Team | Description | +--------+ + + + + | 01/12/ | Orders Only | [facility] | Conversion | | | 2017 | | NEPHROLOGY [place] | Transaction, | | | | | [address] | Provider Unknown | | | | | [address] | [phone] | | | | | [address] | | | | | | [phone] | | | +--------+ + + + [...] - 1.030 | EXTERNAL | | | [place], | | | LAB | | | [...]
--- OUTSIDE RECORDS SUMMARY | ~2020-07-16 | XMS | Encounter Summary ---
Demographics + + + | Address | [address] | | | [place] [address] | + + + | Home Phone [...] Team Providers + +------+ + | Care Curtain Hemmer Automatic Name | Role | Phone | [...] | | | | Loop Physician[address] | [place], [place] | | | | | [place], 3rd floor | [address] | | | | | [place], [place] | [phone] | | | | | [address] | | | | | | [phone] | | | +--------+ + + + [...] Jaye Winchester RN - 06/24/2018 9:43 AM [facility] check in - Transitional Care Management Note ASSESSMENT Spoke with nurse Aguilera at [facility] at [phone]. Verified fax number: [phone] She stated that infusions of Cefazolin 2gm [...] updated lab orders to include CRP to [phone]. NURSING OUTCOME EVALUATION Previous nursing concern(s): no [...] completed without provider involvement Jaye Winchester RN [facility] INFECTIOUS DISEASE [facility] INFECTIOUS DISEASES AT [facility] 3RD FLOOR [address] [facility] [place] [address] documented in this en counter Plan of Treatment Not on filedocumented as of this encounter Visit Diagnoses Not on filedocumented in this encounter"
--- OUTSIDE RECORDS SUMMARY | ~2020-07-16 | XMS | Encounter Summary ---
Demographics + + + | Address | [address] | | | [place] [address] | + + + | Home Phone | | + + + | Preferred Language | Unknown | + + + | Marital Status | Unknown | + + + | Bahai Affiliation | PRO | + + + [...] Team Providers + +------+ + | Care Shrub Planter Name | Role | Phone | + +------+ + | Gilberto Estrada MD | PCP | | + +------+ + Encounter Details +--------+--------+ + + + | Date | Type | Department | Care Team | Description | +--------+--------+ + + + | 06/11/ | Intake | Transfer Center | | | | 2018 | | [address] | | | | | | [place], | | | | | | [place] [address] | | | +--------+--------+ + + + [...]
--- OUTSIDE RECORDS SUMMARY | ~2020-07-16 | XMS | Encounter Summary ---
Demographics + + + | Address | [address] | | | [place] [address] | + + + | Home Phone [...] + + | Author | [facility] | + + + | Organization | [facility] | + + + | Address | Unknown | + + + | Phone | Unavailable | + + + Support + + +---------+ + | Name | Relationship | Address | Phone | + + +---------+ + | Beth Mas | ECON | Unknown | | + + +---------+ + Care Team Providers + +------+ + | Care Knowledge Architect Name | Role | Phone | + +------+ + | Gilberto Estrada MD | PCP | | + +------+ + Encounter Details +--------+ + + + + | Date | Type | Department | Care Team | Description | +--------+ + + + + | 06/11/ | Emergency | [facility] | [place], | | | 2017 | | Department [address] | [address] | | | | | [address] | [place], [place] | | | | | [facility] | [address] | | | | | [place], [place] | [phone] | | | | | [address] | | | | | | [phone] | | | +--------+ + + + [...] | | 0 | | | | [id number] | mouth once daily. | | | [...] Leon who advised PT to come to [facility] ED. Advised Dr. Yen to call [...]
--- OUTSIDE RECORDS SUMMARY | ~2020-07-16 | XMS | Encounter Summary ---
Demographics + + + | Address | [address] | | | [place] [address] | + + + | Home Phone [...] Team Providers + +------+ + | Care Veterinary Technician Name | Role | Phone | [...] | | | | | associated | [address] | | | | | | with | [address] | | | | | | internal | Mary Norris | | | | | | right knee | [place], [place] | | | | | | prosthesis, | [address] | | | | | | subsequent | Phone: | | | | | | encounter | [phone] | | | | | | Procedures | Fax: | | | | | | OCCUPATIONAL | [phone] | | | | | | THERAPY [...] | | | | | associated | [address] | | | | | | with | [address] | | | | | | internal | Mary Norris | | | | | | right knee | [place], [place] | | | | | | prosthesis, | [address] | | | | | | subsequent | Phone: | | | | | | encounter | [phone] | | | | | | Procedures | Fax: | | | | | | PHYSICAL | [phone] | | | | | | THERAPY [...] + + | 06/11/ | Hospital | [facility] [address] | Sandra Valle MD | | | 2018 - | Encounter | [address] | [address] | | | | | [place], | [address] | | | 06/17/ | | [place] [address] | [place], [place] | | | 2018 | | [phone] | [address] | | | | | | [phone] | | | | | | | | | | | | Edyta Demarco MD | | | | | | [address] | | | | | | [address] | | | | | | [place], [place] | | | | | | [address] | | | | | | [phone] | | | | | | | | | | | | Dean Ugarte MD | | | | | | [address] | | | | | | [address] [place], | | | | | | [place] [address] | | | | | | [phone] | | | | | | | | | | | | Stephan Mercado MD | | | | | | [address] | | | | | | [address] | | | | | | [place], [place] | | | | | | [address] | | | | | | [phone] | | | | | | | | | | | | Dayan Valverde, | | | | | | [address] | | | | | | [address] | | | | | | [place], [place] | | | | | | [address] | | | | | | [phone] | | | | | | | | | | | | Hugh Park MD | | | | | | [address] | | | | | | [place], | | | | | | [place] [address] | | | | | | [phone] | | | | | | | | | | | | Ann Mahmood MD | | | | | | [address] | | | | | | [address] | | | | | | [place], [place] | | | | | | [address] | | | | | | [phone] | | | | | | | [...] PCI x3, CABG x2) complicated by chronometer adjuster erich systolic heart failure (EF 45%) due [...] excellent response. He will continue PT/OT at [facility] swing bed unit. Per orthopedic surgery, stitches [...] I-CAPS 280-10-2 mg Cap Generic drug: antiox. no.77-iqns9y-ghmobgq6r-rxw-dcd Take 1 capsule by mouth once daily. [...] (Non-Steroidal Anti-Inflammatory Drug) Renal Failure Avoid per Md Psychiatry recommendations Sulfa (Sulfonamide Antibiotics) Rash Vital Signs [...] information for after-discharge care Discharge Destination IP [facility] . Specialty: Acute Care Hospital Contact information [address] [facility] [address] [place] Location: [facility] swing bed unit Appointments: Dr. Sherman on 07/23/18 at 10:40am. The discharge note was forwarded to the PCP for review. Discharging Physician: Ann Mahmood MD Suggested CPT: 37492 Discharge Management > 30 minute I spent more than 35 minutes zwlj-tu-wicd with the patient of which 70% was [...] | | 0 | | | | no.57-rdzh1q-imgmjjh5r-hml-yoo | mouth once daily. | | | [...] negative pressure wound therapy dressing right knee [id number] Subjective: Doing ok overall. No CP/SOB. Tolerating [...] Plan to DC today to SNF in [place]. SNF can pull sutures at 2 weeks from operat kai date (June 27 is 2 weeks post op). Plan to return to Dr. Sherman' clinic 6 weeks an d also have ID clinic visit on that day. Appreciate [facility] and ID help in managing this [...] knee at that time. Elias Soriano MD [facility] Department of Orthopaedics and Rehabilitation PGY-1 Pager [phone] Ann Vang MD - 4:42 PM PDT HOSPITALIST INPATIENT PROGRESS NOTE Author: Ann Mahmood MD PCP: Gilma Etsrada MD Hospital Day:5 24h Events: Changed from [...] PCI x3, CABG x2) complicated by chronometer adjuster erich systolic heart failure (EF 45%) due [...] mg daily Dispo: Anticipate discharge tomorrow to [facility] bed unit if renal function is s table Code status: Full code Diet: Regular diet Prophy: warfarin and heparin Ann Mahmood MD Business Development Specialistfruit receiver Clinical Hospitalist and Medicine Teaching Services [facility] Pager [phone] Suggested CPT: 42346 Subsequent Visit Detailed/High complexity 35 min I spent 37 minutes xuml-rh-gkzx with the patient of which 78% was [...] negative pressure wound therapy dressing right knee [id number] Subjective: Doing ok overall. No CP/SOB. Tolerating [...] to home as t ransporting back to [place] may present the patient and family undo hardship. 6. Dressings/Drains: Pulled yesterday? 7. Dispo/Discharge: Anticipate discharge to SNF in next 1-3 days if all criteria met. 8. Follow-up: Please call the clinic to make a follow up appointment in approximately 2 wee ks with ORTHO TRAUMA & FRACTURE, . AP and lateral of R knee at that time. Elias Soriano MD [facility] Department of Orthopaedics and Rehabilitation PGY-1 Pager [phone] atel, Tanvir - 06/16/2018 8:20 AM PDT [...] three and a half hours away from [place]. At this time, we are unsur e of his ability to follow up with an OPAT clinic or if there is a provider near [place], where the patient resides. 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 This patient was staffed [facility] Dr[facility] Villalobos, who agrees with the above assessment and plan unless otherwise documented. Tanvir Ayala [facility] P SUBJECTIVE Interval Events: No acute [...] beta afua, statin, aldosterone antagonist, without recent PATRICAI inb itor / ARB use given progressive [...] Dona Mercado MD Division of Hospital Medicine [facility] Pager [phone] I spent more than 35 minutes llpi-bs-sdvn with the patient of which greater than [...] negative pressure wound therapy dressing right knee [id number] Subjective: Doing ok overall, not too much pain in right knee. Looking forward to getting back feeder plywood layup line to home, "My wants to get back [...] to home as t ransporting back to [place] may present the patient and family undo hardship. 6. Dressings/Drains: Continue drain 7. Dispo/Discharge: Anticipate discharge to SNF in next 1-3 days if all criteria met. 8. Follow-up: Please call the clinic to make a follow up appointment in approximately 2 wee ks with ORTHO TRAUMA & FRACTURE, . AP and lateral of R knee at that time. Sisi Pablo [facility] Orthopaedic Trauma Surgery Pager [phone] Stephan Aguirre MD - 06/14/2018 8:59 AM [...] Dona Mercado MD Division of Hospital Medicine [facility] Pager [phone] I spent more than 35 minutes ytbj-zk-umou with the patient of which greater than [...] negative pressure wound therapy dressing right knee [id number] Subjective: Pain improving in R knee. Objective: [...] [facility], . AP and lateral of R knee at that time. SEBAS PLEITEZ MD Pager [phone] Stephan Aguirre M D - 06/13/2018 9:51 [...] Dona Mercado MD Division of Hospital Medicine [facility] Pager [phone] I spent more than 35 minutes uatj-fc-mjnc with the patient of which greater than [...] negative pressure wound therapy dressing right knee [id number] Subjective: Painful in R knee today, but [...] a [facility] F[facility]CT[facility], . AP and lateral of R knee at that time. SEBAS PLEITEZ MD Pager [phone] Stephan Aguirre M D - 06/12/2018 1:24 [...] Dona Mercado MD Division of Hospital Medicine [facility] Pager [phone] I spent more than 35 minutes upjz-aa-pwch with the patient of which greater than [...] total arthroplasty. Nika martinez was referred to [facility] for joint revision, and presented emergently to [facility] ED from [facility] ([place], [place]). Prior to presentation patient states that [...] IV (baseline cr 1.8-2.0), has had prior [place], no CVA. For his right lower extremity [...] distal inferior-apical ischemia, LVEF 53%. -10/2015 [facility] with 90% ostial first diagonal, 85% ostial second diagonal, occluded stent of proximal RCA with left to right coronary collaterals, Patent SVG to LAD Ischemic Cardiomyopathy c/b Chronic Systolic Heart Failure and Diastolic Heart Failure -10/2015 [facility] with EF 45% and inferiobasal akinesia [...] po daily Carvedilol 12.5mg po daily -Y Tilden-3 fatty acid 1,200mg po bid Acetaminophen-codeine po [...] the Social Hx as appropriate. 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 -would consult feed mill tender for enhanced nutrition in post-operative period Non-Insulin [...] as unclear why patient was placed on superintendent terminal anticoagulation after prior provoked DVT. Dean Ugarte MD Clinical Hospitalist Services [facility] Pager [phone] 06/11/2018 10:44 PM [facility] DEPARTMENT: Hosp ([facility]) - [phone] Place of Service: Date of Service: 07/25/2016 [facility] [phone] Modifiers:GC Resident Involved: No Service: PRIMARY HOSPITALIST Suggested CPT: 17451 Initial Visit Comp/High Complexity 70 min I [...] Antibiotics and Frequent lab draws Procedure location: Unit:[facility] Room: 14 Providers: Attending name: Attending physically present: No PICC Nurse name: Frances Fair RN BSN VAT Assisted by Christina March RN BSN VAT Pre-Procedure Consent: written consent obtained Consent given by: Patient Patient identity confirmed per protocol: Yes Team Pause: Immediatly prior to the procedure a pause per protocol was called. A pause veri fies correct patient, procedure, equipment, product support representative and site/side marked as required. CLABSI Prevention [...] area Basilic vein. Cat heter lot number: [id number] with a length of 55 cm was [...] Service: 08/01/2015 Attending Surgeon: Ghassan Sherman MD Supervisor Fertilizer(s): mesfin thompson MD Preoperative Diagnosis: 1. right total knee prosthetic joint infection. Postoperative Diagnosis: same Procedures Performed: 1. Right knee arthrotomy with drainage for infection and polyethylene exchange 2. Application TINO disposible negative pressure wound therapy dressing right knee [id number] Anesthesia: General endotracheal anesthesia. Implants: excahgned alisha triathalon poly size 15, 13mm EBL: 50 Complications: None Specimens: 6 cultures, 1 path Indication For Procedure: Solo Alves was transferred to [facility] for sepsis after previosuly having been treated with a right total knee. He ws medically unstable and transferred to [facility] medical service. An apsirate was positive. [...] Patricia wrap. He was then awoken from [facility] and transported back to the postanesthesia [...] as it stands. Ghassan Sherman MD, MPH Public Policy Mediator, [place] [address] [email or web address] in this encounter [...] patient will need to follow up at [facility] on July 23 with orthopedics. During t hat time,we will cooridnate so that he may follow up with ID/OPAT in regards to his treatmen t. He will be discharged to [facility] to receive inpatient therapy and OPAT. 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 at [facility]. If patient is discharged fr om there, [...] the primary team. This patient was staffed [facility] Dr. Villalobos, who agrees with the above assessment and plan unless otherwise documented. Tanvir Ayala [facility] P SUBJECTIVE Interval Events: No acute [...] 07/24/18 to be continued via OPAT at [facility] Microbiology Data: Source Date Results [...] tablet allopurinol 300 mg oral tablet antiox.mv no.31-ulxg0j-sgwfhte5s-pnq-jdu (I-CAPS) 280-10-2 mg oral capsule carvedilol 12.5 [...] Anticoagulation Clinic/Provider: New PCP Dr. Don Estrada ([phone]) Date INR Warfarin Dose 06/17/2018 1.78 2.5 [...] make recommendations. Please page clinical ph armacist (#[phone]) or call central inpatient pharmacy ([phone]) with questions. Rashard Jacob Pharm. D. Candidate Associated attestation - Mary Wade [facility] - 06/17/2018 11:14 AM PDT--I have reviewed the note written by compounding pharmacy technician Rashard Jacob and I agree with the content and his plan for warfarin on this patient. Thank you, Mary Wade [facility]. Pager [phone] Mary Wade [facility] - 06/16/2018 1:26 PM PDTFormatting of [...] Anticoagulation Clinic/Provider: new PCP Dr. Don Estrada ([phone]) Date INR Warfarin Dose 06/16/2018 1.51 2.5mg [...] make recommendations. Please page clinical ph armacist (#[phone]) or call central inpatient pharmacy ([phone]) with questions. Thank you for consult, Mary Wade [facility]. Pager [phone] Trish Blankenship MD - 10:46 AM PDTAssociated Order(s): IP CONSULT TO INFECTIOUS DISEASESFormatting of [facility] s note might be different from the original. [facility] Infectious Diseases OPAT Referral for Discharge Planning Team B: OPAT RN Jaye Winchester, Office: [phone], Pager: [phone] ID Diagnosis: PJI Antibiotic agent and dosing: [...] has an ortho appointment 10:40 sa day) Speed Reading Teacher: For all patients requiring IV antibiotic therapy, please route your OPAT [place] n of Care Note (.CMOPAT) to [facility] "p OPAT/Infectious Diseases clinic" Pool [...] and make recommendations. Please page clinical pharmacist (#[phone]) or call central inpatient pharmacy ([phone]) with questions. Subjective/Objective: Allergies: Nsaids (non-steroidal anti-inflammatory [...] by his new PCP Don Estrada MD ([phone]). The patient reports Dr Estrada wanted him [...] Carrington. 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 We will discuss [facility] OPAT vs outside providers. Formalized recs pending Recommendations were communicated directly to the primary team. This patient was staffed [facility] Dr[facility] Villalobos, who agrees with the above assessment and plan unless otherwise documented. Thank you for the consult, we will follow along with you. Tanvir Ayala [facility] P SUBJECTIVE HPI: Júnior Mas is [...] arthritis. The patient was then transferred from [place] to [facility] for fu rther evaluation. While [...] 300 mg by mouth once daily. antiox. no.33-syma3t-hvglojc5z-dob-vyk (I-CAPS) 280-10-2 mg oral capsule Take 1 [...] mouth every Friday. Take 1 tablet by [facility] all other days of the week. Current [...] (Non-Steroidal Anti-Inflammatory Drug) Renal Failure Avoid per Md Psychiatry recommendations Sulfa (Sulfonamide Antibiotics) Rash Social History [...] care. Ishaan Villalobos MD [facility], PharmD - 06/14/2018 7:36 PM PDT Pharmacy [...] lab draw. - Please page clinical pharmacist [phone]) or call central inpatient pharmacy ([phone]) wit h questions. Subjective/Objective: Júnior Mas, a [...] CULTURE, TISSUE-PROSTHETIC JOINT INFECTION AER AND MARIELOS [[id number]] (Abnormal) [facility] Collec dilcia: 06/12/18 1354 Lab Status: Preliminary result Specimen: Tissue from Knee - right Updated: 06/14/18 1344 CULTURE RESULT [facility] Staphylococcus epidermidis (A) Ref Range: Narrative: Culture Report: Staphylococcus epidermidis Gram Stain: No squamous epithelial cells Rare polymorphonuclear cells No organisms seen Thank you, Ramon Mercado, PharmD, [facility] Clinical Pharmacist elphine, Torey Adame rmD [...] and make recommendations. Please page clinical pharmacist (#[phone]) or call central inpatient pharmacy ([phone]) with questions. Subjective/Objective: Júnior Mas, a 78 [...] by his new PCP Don Estrada MD ([phone]). The patient reports Dr Estrada wanted him [...] consult, Evgeny Akers PharmD, [facility] Pager [phone] Evgeny Robles PharmD - 06/13/2018 8:41 AM [...] on stable regimen. Please page clinical pharmacist (#[phone]) or call central inpatient pharmacy ([phone]) with q uestions. Subjective/Objective: Indication: infectious disorder of joint Therapy start date: 06/12/18 Anticipated duration: TBD Goal trough: ~15 mg/L Urine output: unavailable for most of the past 24 hours Renal function: stable , current SCr 1.66 (Baseline SCr 1.6-1.8) Actual body weight: Weight: 86.7 kg (191 lb 1.6 oz) (06/13/18 2949) Pertinent cultures/sensitivities: 06/12/18 blood and tissue cultures - in process Thank you for the consult, Evgeny Akers PharmD, [facility] Pager [phone] Harley Echols MD - 06/11/2018 7:27 PM PDT [facility] DEPARTMENT OF ORTHOPAEDICS & REHABILITATION HISTORY & PHYSICAL EXAMINATION Patient: Júnior Mas Encounter Date: 06/11/2018 Attending Physician: Maral Leon MD HISTORY OF PRESENT ILLNESS: Júnior Mas is a 78 year old male with CHF, gout, CAD with prior WI, DMII, HTN who presents with 2 weeks of progressive right knee pain, stiffness, fevers and malaise. He had his tota l knee arthroplasty done in [address] Hurst at [facility] for advance d DJD. He's had no [...] culture s pending. He was transferred to [facility] for further management of a septic prosthetic knee. Implants: [employer] Triathlon Total Knee System 1. Size 4 [...] consented and added on to the [facility]. Admitted to hospitalist service; keep NPO. PLAN: Disposition: admit to clinical hospitalist service Surgery: yes, I&D with staged revision tomorrow Diet: npo effective now Further Imaging: no additional at this time Supervision: Plan has been discussed with Dr. Leon. Follow up:Please call the clinic to make a follow up appointment in approximately 2 weeks w [facility] ORTHO TRAUMA & FRACTURE, The orthopaedics consult pager is [phone], please call with questions. Harley Weaver MD Resident Department of Orthopaedics Pager [phone] [facility] Department of Orthopaedics & Rehabilitation [phone] [facility] Mail Code: OP31 [facility] [address] Associated attestation - Ghassan Sherman MD - [...] call me for questions. GHASSAN SHERMAN MD [facility] [address] [address] [place] [address] documented in this encounter ED [...] (H) 0.70 - 1.30 mg/dL EGFR - TURKISH 39 (L) >60 mL/min EGFR NON -TURKISH 32 (L) >60 mL/min SODIUM, PLASMA (LAB) [...] check: Completed; Unsecured Report called to: Ariana IBLL in OBS unit. report called? yes Chichi [...] total knee replacement in 2012 done in [facility]. Right k nee also became more swollen at that time, though without any warmth or redness. Pain worse with any movement and better at rest. He was evaluated by his PCP and started on coumadin for question of DVT, though RLE ultraso und was negative. Seen by Dr. René Yen (orthopedics) in [place] 06/09 with the following labs. - WBC [...] 06/11/2018 Heart block 06/11/2018 Pacemaker-dependent due to [place] cardiac rhythm insufficient to support life 8 [...] exam, work-up with his orthopedic surgeon and [place], he has a right knee prosthetic joint infection. Laboratory and imaging results including ESR, CRP were reviewed and interpreted, and notabl e for the following: - significantly elevated ESR and CRP - arthrocentesis at [place] with 79,000 WBCs The patient received the following in the emergency department (including medications, inte rventions, consultations, and reassessments): - orthopedics consultation, plan for OR tomorrow Given this, patient required admission for further care. We spoke to the [facility] ist service, who accepted patient to [...] Information: Patient discharging to swing bed at [facility] in [facility]. Reviewed DC to SNF AVS [...] PDTNursing Handoff Patient Daily Goal: rest (06/16/18 2645) Patient Specific Preferences: When asked if pt moves while he is in a recliner, he states " no, once I'm there I stay", education provided on importance of repositioning for pressure i njury prevention even in recliner chair. (06/15/18 8692) [facility] IP NURSE HANDOFF: [facility] [...] njury prevention even in recliner chair. (06/15/18 7140) [facility] IP NURSE HANDOFF: [facility] [...] Met Case Management OPAT Plan of Care: [facility] hospital discharge date: 06/17/2018 This patient will be followed for all post hospital OPAT care needs by: [facility] OPAT/Infectiou s Diseases Clinic, ; IV antibiotic orders were provided to: Other vendor facility, Name: [facility] Swi ng Bed, , , Attn: [...] session other than pt and therapist: rehabilitation psychologist Current unit: 9k Brief Hospital Course:Júnior Mas [...] FWW: minimum assist, 15 feet with rehabilitation psychologist stand by assist and follow ing with wheelchair. Chair to chair transfer front wheeled walker and minimum assist Pt left up in recliner chair, call light/urinal and belongings all in reach. [facility] BASIC MOBILITY Difficulty turning over in [...] to do/total assistance - Total/Dependen t Assist [facility] Basic Mobility Total Score 14 Interpretation of [facility] Short Form - Basic Mobility: CMS [...] recommendations: to be determined . BRICE Blount [address] andoff - Emily Covarrubias RN - 06/16/2018 [...] prevention even in recliner chair. (06/15/18 0953) [facility] IP NURSE HANDOFF: [facility] [...] As evidenced by: Poor intake tonight from 6469-2593 despite encouragement. He states that his water [...] njury prevention even in recliner chair. (06/15/18 4579) [facility] IP NURSE HANDOFF: [facility] [...] session other than pt and therapist: rehabilitation psychologist and student observer Current unit: 9k [facility] Course: Júnior Mas is a 78 [...] cell phone and water all in reach. [facility] BASIC MOBILITY Difficulty turning over in [...] to do/total assistance - Total/Dependen t Assist [facility] Basic Mobility Total Score 9 Interpretation of [facility] Short Form - Basic Mobility: CMS [...] Equipment recommendations: to be determined BRICE Blount [address] andoff - Maria Dolores Gurrola RN - [...] njury prevention even in recliner chair. (06/15/18 9934) [facility] IP NURSE HANDOFF: [facility] [...] nutrient distribution type or amount Nutrition Assessment: flatlock sewing machine operator received. Pt does not like food here, [...] Mendez, MS, RD, LD, CNSC Pager #: [phone] Comments: Júnior Msa is a 78 y.o. 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 Ryao AGUILAR had remote pulse ox ordered t [...] RN - 06/14/2018 5:38 PM PDTNursing Handoff [facility] IP NURSE HANDOFF: [facility] [...] encourage meals. Monitor UOP- no ouput from [id number]. CHS notified- BMS ordered. encourage fluids. MOBILITY: [...] RN - 06/14/2018 2:13 PM PDTNursing Handoff [facility] IP NURSE HANDOFF: [facility] [...] PM PDT Physical Therapy Evaluation and Treatment [id number] JÚNIOR MAS [facility] Day: 3 Date of : 1940 [...] than therapist and pt: patient and son; SPINNER OPEN END surjit hylton with mobility portion of session. [...] going down ramp) Vision/Hearing: hearing aids (very [place]; states he refuses hearing aids) Patient / Family Goal: patient will not state; patient : For patient to return home. Language: Eritrean. Barriers: Very [place], not fully attentive. Pain: "lots"; refuses to [...] assist after focus on m idline. PT, SPINNER OPEN END and patient encourage patient to get up to a chair, with assistance, patient r efused 4 times. Outcome Measure(s): 5 Time Sit to Stand: unable. >15 seconds predicts recurrent fallers [facility] BASIC MOBILITY Difficulty turning over in [...] to do/total assistance - Total/Dependen t Assist [facility] Basic Mobility Total Score 9 Interpretation of [facility] Short Form - Basic Mobility: CMS [...] underestimate Ended session: Patient supine in bed. SPINNER OPEN END attending to patient. ASSESSMENT: Patient presents s/p [...] 20 >/= 24/24 on [facility] Basic Mobility outcomes measure upon discharge. Outcome: [...] RN - 06/14/2018 2:37 AM PDTNursing Handoff [facility] IP NURSE HANDOFF: [facility] [...] RN - 06/13/2018 1:32 AM PDTNursing Handoff [facility] IP NURSE HANDOFF: [facility] [...] information: see anesthesia record Functional Epidural: No FINANCIAL SERVICES COUNSELOR: No Respiratory: RR: 17, O2 Sat: 98 %, O2 Delivery: Nasal cannula Breath Sounds: WDL Except (SEUN - not diagnosed) TAYLOR: LLL: RUL: RLL: SEUN No Comment: none Cardiac: BP: 113/47 HR: 94 GI: Nausea/Vomiting Status: No Signs/Symptoms: Interventions: Assessment: Comments: toleratingPO : Last void: at 1900 Contact Name: Beth Contact Number: [phone] Family contacted: Yes Comment:updated family Belongings:none in [...] in the provider note. Sandra Valle MD [facility] ransfer Note - Arnie Busby ANP - 06/11/2018 3:19 PM PDT Call from Dr. Eric Yen, [facility] Pt with hx of CHF with significant fluid retention, right knee replacement, chronic leg ulc ers has infected total knee. Presented to clinic today with right knee swelling and pain. Right knee aspirate today: 79k white cells Markedly elevated CRP and sed rate Temp 99.4, vitals stable and normal Spoke with [facility] orthopedic surgeon Dr. Leon who advised transfer to [facility] ED Pt coming [facility] Rita Alex - 06/11/2018 3:19 PM PDTPt with post procedure infection, R total knee. Connected ref with ROCA[facility] Sanders. [facility] Rita Barker - 06/11/2018 2:09 PM PDTRef [facility] ortho Dr. Maral Leon who advised [...] | | | | | | ([facility]) | | + +--------+ + [...] | | | | | | ([facility]) | | + +--------+ + [...] | | | | | | ([facility]) | | + +--------+ + [...] - D[facility]SHANA | [address] | [place], [place] | | | KIERRA POINT OF CARE | [address] | [address] | | | TESTS | | | [...] [facility] | [address] | [place] [address] | | | SERVICES, CORE | PARK [...] | | | LABORATORY | | | TURKISH | | | SERVICES, | | | [...] the MDRD equation recommended by the | [facility] | | National Kidney Disease [...] | + + + + + | [facility] | [address] [facility] [address] [facility] | [place] [address] | | | SERVICES, CORE | MARY [...] [facility] | [address] | [place], [place] | | | OPHELIA LOZADA OF CARE | [facility] | [address] | | | TESTS | | | [...] [facility] | [address] | [place], [place] | | | KIERRA POINT OF CARE | [address] | [address] | | | TESTS | | | | + + + + + X-RAY PORTABLE CHEST 1 VIEW (06/16/2018 4:29 PM PDT) + + | Specimen | + + | | + + + + + | Narrative | Performed At | + + + | EXAM: MS CHEST 1 VIEW HISTORY: PICC placement. Prosthetic [...] Note | + + | Service Account, [email or web address] - 06/16/2018 4:44 PM PDT EXAM: MS CHEST 1 | | VIEW HISTORY: PICC [...] necessary, edited the report. I agree with [facility] report as now presented. | | [...] draws Procedure location: | | | Unit:9 [facility] Room: 14 Providers: Attending name: Attending | | | physically present: No PICC Nurse name: Frances Fair CLINICAL DIETETIC TECHNICIAN | | | VAT Assisted by Christina March RN BSN VAT Pre-Procedure Consent: | | | written consent obtained Consent given by: Patient Patient | | | identity confirmed per protocol: Yes Team Pause: Immediatly prior to | | | the procedure a pause per protocol was called. A pause verifies | | | correct patient, procedure, equipment, product support representative and site/side | | | marked as [...] | area Basilic vein. Catheter lot number: [id number] with a length of 55 | | [...] - BERNAAM | [address] | [place], [place] | | | KIERRA POINT OF CARE | [address] | [address] | | | TESTS | | | [...] [facility] | [address] | [place] [address] | | | SERVICES, CORE | PARK [...] | | | LABORATORY | | | TURKISH | | | SERVICES, | | | [...] | + + + + + | [facility] | [address] | [place] [address] | | | SERVICES, KAREEM | MARY [...] (H) | 70 - 99 mg/dL | [facility] - | | | GLUCOSE, [...] [place] | [address] | [place], [place] | | | OPHELIA LOZADA OF FUAD | [facility] | [address] | | | TESTS | | | [...] [place] | [address] | [place], [place] | | | OPHELIA LOZADA OF FUAD | [address] | [address] | | | TESTS | | | [...] DARSHANA | [address] | [place], [place] | | | KIERRA [place] OF [facility] | [facility] | [address] | | | TESTS | | | [...] | + + + + + | [facility] | [address] | [place] [address] | | | SERVICES, CORE | MARY [...] | | | LABORATORY | | | TURKISH | | | SERVICES, | | | [...] | + + + + + | [facility] | [address] | [place] [address] | | | SERVICES, CORE | PARK [...] | + + + + + | [facility] | [address] | [place] [address] | | | SERVICES, CORE | PARK [...] [facility] | [address] | [place] [address] | | | KAREEM FINCH | MARY [...] [facility] | [address] | [place] [address] | | | SERVICES, CORE | PARK [...] | + + + + + | [facility] | [address] | [place] [address] | | | SERVICES, CORE | MARY [...] - DARSHANA | [address] | [place], [place] | | | K[place] POINT OF [facility] | [address] | [address] | | | TESTS | | | [...] | | | LABORATORY | | | TURKISH | | | SERVICES, | | | [...] is appropriate. | LABORATORY | | Page [phone] or call [phone] with questions. Thank you. GFR is | [...] | + + + + + | [facility] | [address] | [place] [address] | | | SERVICES, CORE | PARK [...] | + + + + + | [facility] | [address] | [place] [address] | | | SERVICES, CORE | PARK [...] is appropriate. | LABORATORY | | Page [phone] or [phone] with questions. Thank you. | SERVICES, CORE | + + + + + + + + | Performing | Address | City/State/Zipcode | Phone Number | | Organization | | | | + + + + + | [facility] | [address] | [place] [address] | | | SERVICES, CORE | MARY [...] (H) | 70 - 99 mg/dL | [facility] - | | | GLUCOSE, [...] [place] | [address] | [place], [place] | | | OPHELIA LOZADA OF CARE | [address] | [address] | | | TESTS | | | [...] [place] | [address] | [place], [place] | | | OPHELIA LOZADA OF CARE | [address] | [address] | | | TESTS | | | [...] [facility] | [address] | [place] [address] | | | SERVICES, CORE | PARK [...] | | | LABORATORY | | | TURKISH | | | SERVICES, | | | [...] | + + + + + | [facility] | [address] | [place] [address] | | | SERVICES, CORE | PARK [...] [place] | [address] | [place], [place] | | | OPHELIA LOZADA OF FUAD | [facility] | [address] | | | TESTS | | | [...] BERNAAM | [address] | [place], [place] | | | OPHELIA LOZADA OF CARE | [facility] | [address] | | | TESTS | | | [...] (H) | 70 - 99 mg/dL | [facility] - | | | GLUCOSE, [...] [place] | [address] | [place], [place] | | | OPHELIA LOZADA OF CARE | [address] | [address] | | | TESTS | | | [...] + + | ECG | Borderline prolonged MS | | [facility] | | | [...] DEPT OF | [address] | [place], [place] | | | CARDIOLOGY | [address] | [address] | | + + + + + [...] + + + | [facility] | [address] | [place], [place] | | | KIERRA POINT OF CARE | [address] | [address] | | | TESTS | | | [...] | + + + + + | [facility] | [address] | [place] [address] | | | SERVICES, CORE | PARK [...] | | | LABORATORY | | | TURKISH | | | SERVICES, | | | [...] | + + + + + | [facility] | [address] | [place] [address] | | | SERVICES, CORE | [address] | | | + + + + + MAGNESIUM, PLASMA (06/12/2018 10:24 PM PDT) + +-------+ + + + | Component | Value | Ref Range | Performed | Pathologist | | | | | At | Signature | + +-------+ + + + | MAGNESIUM,P | 1.8 | 1.6 - 2.6 mg/dL | [facility] | | | LASMA | | | [...] [facility] | [address] | [place] [address] | | | SERVICES, KAREEM | MARY [...] | | | LABORATORY | | | TURKISH | | | SERVICES, | | | [...] the MDRD equation recommended by the | [facility] | | National Kidney Disease Education Program. [...] [facility] | [address] | [place] [address] | | | SERVICES, CORE | MARY [...] | + + + + + | [facility] | [address] | [place] [address] | | | SERVICES, | [address] [...] [facility] | [address] | [place] [address] | | | SERVICES, | [address] [...] [facility] | [address] | [place] [address] | | | SERVICES, CORE | PARK [...] [facility] | [address] | [place] [address] | | | SERVICES, | [address] [...] | + + + + + | [facility] | [address] | [place] [address] | | | KAREEM FINCH | MARY [...] D[facility]SHANA | [address] | [place], [place] | | | KIERRA POINT OF CARE | [address] | [address] | | | TESTS | | | [...] | | | LABORATORY | | | TURKISH | | | SERVICES, | | | [...] [facility] | [address] | [place] [address] | | | SERVICES, CORE | PARK [...] | + + + + + | [facility] | [address] | [place] [address] | | | SERVICES, KAREEM | PARK [...] | [facility] | [address] [facility] | [place], [place] | | | KIERRA [place] OF [facility] | [address] | [address] | | | TESTS | | | | + + + + + PROCEDURE NOTE (06/12/2018 2:57 PM PDT) + + + | Narrative | Performed At | + + + | Ghassan Sherman MD 06/17/2018 2:15 PM Date of Service: | | | 08/01/2015 Attending Surgeon: Ghassan Sherman MD | | | Supervisor Fertilizer(s): mesfin thompson MD Preoperative Diagnosis: 1. 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 Postoperative Diagnosis: | | | same Procedures Performed: 1. Right knee arthrotomy with | | | drainage for infection and polyethylene exchange 2. Application | | | TINO disposible negative pressure wound therapy dressing right knee | | | [id number] Anesthesia: General endotracheal anesthesia. | | | Implants: excahgned alisha triathalon poly size 15, 13mm EBL: 50 | | | Complications: None Specimens: 6 cultures, 1 path Indication | | | For Procedure: Solo Alves was transferred to [facility] for sepsis | | | [...] | | stands. Ghassan Sherman MD, MPH Public Policy Mediator, Dept. of | | | Orthopaedics [facility] [address] | | | Maricel [address]. [address] [place] [address] | | | [email or web address] | | + + + CAPILLARY BLOOD GLUCOSE (NO CHG), POC (06/12/2018 2:42 PM PDT) + +---------+ + + + | Component | Value | Ref Range | Performed | Pathologist | | | | | At | Signature | + +---------+ + + + | BLOOD | 134 (H) | 70 - 99 mg/dL | [facility] - | | | GLUCOSE, [...] [facility] | [address] | [place], [place] | | | OPHELIA LOZADA OF CARE | [address] | [address] | | | TESTS | | | [...] D[facility]NA | [address] | [place], [place] | | | OPHELIA LOZADA OF FUAD | [address] | [address] | | | TESTS | | | [...] Propionibacterium due to growth of other | [facility] | | organsims. Gram Stain: No squamous epithelial cells Moderate | | | polymorphonuclear cells No organisms seen | | + + + + + + + + | Performing | Address | City/State/Zipcode | Phone Number | | Organization | | | | + + + + + | [facility] | [address] | [place] [address] | | | [place] | | | [...] - | | | | | | [facility] | | + + + + + [...] Propionibacterium due to growth of other | [place] | | organsims. Gram Stain: No squamous epithelial cells No | | | polymorphonuclear cells No organisms seen | | + + + + + + + + | Performing | Address | City/State/Zipcode | Phone Number | | Organization | | | | + + + + + | [facility] | [address] | [place] [address] | | | [place] | | | [...] - | | | | | | [place] | | + + + + + [...] + | [facility] | [address] | [place] [address] | | | [place] | | | | + + + [...] - | | | | | | [facility] | | + + + + + [...] | + + + + + | [facility] - | [address] | [place] [address] | | | [place] | | | | + + + [...] | + + + + + | [facility] - | [address] | [place] [address] | | | [place] | | | | + + + [...] | | | | | | number [phone].[id number]. Knee, | | | | | | [...] + + + + | [facility] | [address] | [place] [address] | | | PATHOLOGY | [address] [...] | + + + + + | [facility] - | [address] | [place] [address] | | | [place] | | | | + + + [...] [place] | [address] | [place], [place] | | | OPHELIA LOZADA OF CARE | [address] | [address] | | | TESTS | | | [...] [facility] | [address] | [place] | | | KIERRA POINT OF CARE | [address] | [address] | | | TESTS | | | [...] + + | [facility] | [address] [email or web address] [address] | [place] | | | IKERRA POINT OF [facility] | [address] | [address] | | | TESTS | | | [...] [facility] | [address] | [place] [address] | | | SERVICES, KAREEM | PARK [...] | + + + + + | [facility] | [address] | [place] [address] | | | SERVICES, CORE | MARY [...] | + + + + + | [facility] | [address] | [place] [address] | | | SERVICES, CORE | MARY [...] [facility] | [address] | [place] [address] | | | SERVICES, CORE | PARK [...] | + + + + + | [facility] | [address] | [place] [address] | | | SERVICES, | [address] [...] | + + + + + | [facility] | [address] [facility] | [place] [address] | | | SERVICES, CORE | MARY [...] | | | LABORATORY | | | TURKISH | | | SERVICES, | | | [...] | + + + + + | [facility] [place] | [address] [facility] | [place] [address] | | | SERVICES, CORE | MARY [...] | + + + + + | [facility] | [address] [facility] | [place] [address] | | | KAREEM FINCH | MARY [...] | + + + + + | [facility] | [address] | [place] [address] | | | SERVICES, KAREEM | MARY [...] | + + + + + | [facility] | [address] | [place] [address] | | | SERVICES, CORE | PARK [...] | + + + + + | [facility] | [address] | [place] [address] | | | SERVICES, CORE | [address] | | | + + + + + ED INFORMATION EXCHANGE (06/11/2018 6:04 PM PDT) + + | Specimen | + + | | + + + + + | Narrative | Performed At | + + + | [id number] This patient has registered at the [place] | [facility] | | [facility] Emergency Department For more | MEDICAL | | information visit: | TECHNOLOGIES | | [email or web address] | | | 35ffec Security Events No [...] Chief Complaint Aug | | | 2017 [facility] [place] Emergency | | | Emergency 10,800. REF Recent Inpatient Visit | | | Summary No recorded inpatient visits. E.D. Visit Count (12 mo.) | | | Facility Visits [facility] 1 Total 1 | | | Note: [...] | | facilities for additional information. 2018 [employer] | | | [employer] - [place], [place] - | | | [email or web address] | | + + + + + | Procedure Note | + + | Service Account, Rtf Results Inbound - 06/11/2018 6:06 PM PDT Formatting of this | | note might be different from the original.DANIEL?NOTIFICATION?06/11/2018 18:04?MAXWELL, | | JÚNIOR? patient has registered at the [facility] | | [place] Emergency Department For more information visit: | | [email or web address] Security | | EventsNo recent Security Events currently on fileED Care GuidelinesThere are currently | | no ED Care Guidelines in DANIEL for this patient. Please check your facility's medical | | records system.Recent Emergency Department Visit SummaryAdmit Date Facility [facility] | | Type Major Type Diagnoses or Chief Complaint Jun 11, 2018 [facility] | | [facility] [place] Emergency Emergency 10,800. REF Recent Inpatient Visit | | SummaryNo recorded inpatient visits. E.D. Visit Count (12 mo.)Facility Visits [place] | | [facility] 1 Total 1 Note: Visits [...] aforementioned facilities for additional information. ? 2018 [employer] | | [employer] - [place], [place] - [email or web address] | |Facility Visits | |[facility] 1 | |Total 1 | |Note: Visits [...] facilities for additional information. | |? 2018 [employer] - [place], [place] - [email or web address] | + + + + + + + | Performing | Address | City/State/Zipcode | Phone Number | | Organization | | | | + + + + + | [facility] | [address] | [place], [place] | [phone] | | TECHNOLOGIES | [address] | [address] | | + + + + + [...] | + + | Pacemaker-dependent due to [place] cardiac rhythm insufficient to support life | [...] mg, intramuscular, | | | NEEDED, Starting [facility] 06/11/18 at | | | 2306, [...]
--- OUTSIDE RECORDS SUMMARY | ~2020-07-16 | XMS | Encounter Summary ---
Demographics + + + | Address | [address] | | | [place] [address] | + + + | Home Phone | | + + + | Preferred Language | Unknown | + + + | Marital Status | | + + + | Restorationism Affiliation | 1077 | + + + | Race | White | + + + | Ethnic Group | Not or | + + + Author + + + | Author | [facility] | | | and [place] | + + + | Organization | [facility] | | | [...] Providers + +------+ + | Care Supervisor Endless Track Vehicle Name | Role | Phone | + +------+ + PCP | Unavailable | + +------+ + Encounter Details +--------+ + + + + | Date | Type | Department | Care Team | Description | +--------+ + + + + | 10/12/ | Hospital | [facility] | Olaf Nicole | | | 1997 - | Encounter | [facility] | MD [address] | | | | | CARDIAC TRANSPLANT | [address] | | | 10/13/ | | [address] | [place] [address] | | | 1999 | | [place] | [phone] | | | | | [address] | | | | | | [phone] | | | +--------+ + + + [...]
--- OUTSIDE RECORDS SUMMARY | ~2020-07-16 | XMS | Encounter Summary ---
Demographics + + + | Address | [address] | | | [place] [address] | + + + | Home Phone [...] + +------+ + | Care Community Health Worker Name | Role | Phone | [...]
--- OUTSIDE RECORDS SUMMARY | ~2020-07-16 | XMS | Encounter Summary ---
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
--- OUTSIDE RECORDS SUMMARY | ~2020-07-16 | XMS | Encounter Summary ---
Demographics + + + | Address | [address] | | | [place] [address] | + + + | Home Phone [...] Team Providers + +------+ + | Care Snailer Name | Role | Phone | + [...] ALEX HANDY | | | | | [facility] | [place] [address] | | | | | [address] | [phone] | | | | | [phone] | | | +--------+ + + + [...] TR Vmax: | | | 2.03 m/s Kennel Keeper: CAROLYN Authenticated by: López Rothman | | [...] cmLVIDd: 5.53 cmLVPWd: 0.81 cmLVOT Area: 3.93 di5THCC Diam: 2.23 | | cm%FS: 24.16 %EF(Teich): 47.55 %ESV(Teich): 78.38 mlLVIDs: 4.19 cmSV(Teich): | | 71.06 mlRVIDd: 3.43 cmLVEF MOD A2C: 47.07 %SV MOD A2C: 71.24 mlLVEDV MOD A2C: | | 151.33 mlLVLd A2C: 8.47 cmLVEDV MOD A4C: 149.39 mlLVLd A4C: 8.40 cmLVESV MOD A2C: | | 80.08 mlLVLs A2C: 6.93 cmLAESV(A-L): 51.54 mlLAESV Index (A-L): 24.66 ml/m2LAAs | | A2C: 14.93 [id number] A-L A2C: 40.51 mlLALs A2C: 4.67 cmLAAs A4C: 18.74 [id number] | | A-L A4C: 64.72 mlLALs A4C: 4.60 cmRAAs: 18.61 fi0KHDFV A-L: 72.61 mlRAESV MOD: | | 64.47 mlRALs: 4.04 cmTAPSE: 1.97 cmAV maxP.48 mmHgAV meanP.71 mmHgAV | | Vmax: 1.27 m/Nikita Vmean: 0.91 m/Nikita VTI: 27.28 cmAVA Vmax: 2.66 cm2AVA (VTI): | | 2.84 [id number] Vmax: 0.00 cm2/m2AVAI (VTI): 0.00 cm2/m2LVOT maxP.96 mmHgLVOT | | meanP.79 mmHgLVSI Dopp: 37.08 ml/m2LVSV Dopp: 77.51 mlLVOT Vmax: 0.86 | | m/sLVOT Vmean: 0.64 m/sLVOT VTI: 19.68 cmMV A Tramaine: 0.83 m/sMV DecT: 148.14 msMV | | E Tramaine: 0.67 m/sMV E/A Ratio: 0.81MV PHT: 42.96 msMVA By PHT: 5.12 jp0Aufiqo e': | | 0.05 m/sSeptal E/e': 11.72Lateral e': 0.10 m/sLateral E/e': 6.21RAP: 5 | | mmHgRVSP: 21.63 mmHgTR maxP.63 mmHgTR Vmax: 2.03 m/s Kennel Keeper: | | DBSAuthenticated by: López [facility] Date/Time: 08-07-2017 17:18:39 IMPRESSION: | | [...] |TR Vmax: 2.03 m/s | | | |Kennel Keeper: DBS | |Authenticated by: López Rothman | [...]
--- OUTSIDE RECORDS SUMMARY | ~2020-07-16 | XMS | Encounter Summary ---
Demographics + + + | Address | [address] | | | [place] [address] | + + + | Home Phone [...] + + + | Author | [facility] | | | and [place] | + + + | Organization | [facility] | | [...] Providers + +------+ + | Care Director Insurance Name | Role | Phone | + [...] | | | | | | | [place] | | | | | | | ESOPHAGOGAST | | | | | | | RODUODENOSCO | | | | | | | PY TRANSORAL | | | | | | | DIAGNOSTIC | | | | | | | [place] EGD | | | | | | | BALLOON | | | | | | | DILATION | | | | | | | ESOPHAGUS | | | | | | | <30 MM DIAM | | | | | | | [place] | | | | | | | [...] + + | 07/31/ | Hospital | [facility] | Willow Colin MD | | | 2017 | Encounter | [facility] | [address] | | | | | [address] | [address], | | | | | [place] | [place] [address] | | | | | [address] | [phone] | | | | | [phone] | | | +--------+ + + + [...] fluids. 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 documented in this encounter Medications at [...] Electronically signed Willow Colin MD 07/31/2017 14:06 [facility] 2:1 1 PM PDTOp Note - [...] + | [facility] | [address] | [place] | [phone] | | [facility] | | [address] | | | - LABORATORY | | [...] Negative for Helicobacter pylori with HE stain. [facility]:caw:C2NR GROSS | | | DESCRIPTION: A. [...] technical and professional components were performed by [employer] | | | [employer], [address] [place] [address] | | | (Inker And Opaquer: Don Morrell D.O.; IA#: [id number]). | | | Diagnostician: Gavin Michaud MD Pathologist Electronically | | | Signed 08/01/2017 | | + + + + +---------+ + + | Performing | Address | City/State/Zipcode | Phone Number | | Organization | | | | + +---------+ + + | [place] [facility] | | | | | [employer] [...] ONCE PRN, Wheezing, | | | Starting [facility] 07/31/17 at 1242, | | | [...]
--- OUTSIDE RECORDS SUMMARY | ~2020-07-16 | XMS | Clinical Summary ---
Demographics + + + | Address | [address] | | | [place] [address] | + + + | Home Phone [...] Team Providers + +------+ + | Care Flexographic Printing Press Operator Name | Role | Phone | [...] + + +---------+------+------+-------+ | nystatin | nystatin [id number] | | 0 | | | Activ [...] | | + + + +---------+------+------+-------+ | Maryknoll-3 Fatty | Maryknoll 3 | | 0 | | | Activ | | Acids (OMEGA 3 PO) | | | | | | e | + + + +---------+------+------+-------+ | Maryknoll-3 Fatty | Take by mouth two | [...] | | + + + +---------+------+------+-------+ | Maryknoll-3 Fatty | Take 1,200 mg by | [...] + + + | 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 Pulse generator: Akella. Model number [id number], | | serial number [id number]. Placed because of symptomatic sinus | | [...] block.2. RV | | lead: Medtronic, model #297303, serial number [id number]. RA | | lead: Medtronic, model #334815, serial number [id number]. This | | is an Medtronic MRI [...] planning to | | go to [place] after Si[place]. 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 | + + Family History + [...] | | 2017 | -500 | | [id number]: Qty: 1 on | | | | | | /[id number] | | 09/07/2013 by Aris, | | | | | | 500 | | Drew Mendoza MD | | | | | | /[id number] | + +------+------+ +--------+--------+--------+ | Patella Triathlon 38mm 11mm | | | | | 04/25/ | 5551-G | | Height - [id number]: | | | | | 2017 | [...] | | 2017 | -402 | | [id number]: Qty: 1 on | | | | [...] - | | | | | | /[id number] | | [id number]: Qty: 1 on | | | | | | 001 | | 09/07/2013 by Aris, | | | | | | /[id number] | | Drew Mendoza MD | | | | | | 1 | + +------+------+ +--------+--------+--------+ | Insert Tibial Ricardo Rivers | | | | | 01/23/ | 5531-G | | 5 13mm - [id number]: | | | | | 2017 | [...] +--------+ +---------+--------+ | CIGNA | CIGNA | [id number] | 10/27/19 | [phone] | | Indemn [...] +--------+ +---------+--------+ | MEDICARE | MEDICA | [id number] | 01/26/20 | [phone] | | Medica | | | RE | | 15-Pre | 5 | | re | | | PART A | | sent | | | | | | AND B | | | | | | + +--------+ +--------+ +---------+--------+ | MEDICARE | MEDICA | [id number] | 04/26/20 | [phone] | | Medica | | | RE | | 03-Pre | 5 | | re | | | PART A | | sent | | | | | | AND B | | | | | | + +--------+ +--------+ +---------+--------+ | CIGNA | CIGNA | [id number] | 10/27/19 | [phone] | | Indemn [...] Person | Self | [birth year] | | [address] | | | al/Fam | | 1940 | [phone] | [place] [address] | | | afshan | | | 4 (Home) | | + +--------+ +--------+ + + | Duane Mas | Person | Self [birth year] | | [address] | | | al/Fam | | 1940 | [phone] | [place] [address] | | | afshan | | | 4 (Home) | | + +--------+ +--------+ + + | Duane Mas | Person | Self | [birth year] | | [address] | | | al/Fam | | 1940 | [phone] | [place] [address] | | | afshan | | | 4 (Home) | | + +--------+ +--------+ + + Advance Directives + + + + + | Type | Date Recorded | Patient | Explanation | | | | Coppersmith Helper | | + + + + + | Power of | | | | | Lan/Wan Engineer | | | | + + + + + | Advance | 07/31/2017 10:59 | | | | Directive | AM | | | + + + + +
--- OUTSIDE RECORDS SUMMARY | ~2020-07-16 | XMS | Encounter Summary ---
Demographics + + + | Address | [address] | | | [place] [address] | + + + | Home Phone [...] Providers + +------+ + | Care Customs Compliance Analyst Name | Role | Phone | [...] 2017 | Encounter | at [facility] | [address] | | | | | [address] | [place], [place] | | | | | [facility] [address] | [address] | | | | | [place], [place] | [phone] | | | | | [address] | | | | | | [phone] | | | +--------+ + + + [...] | | 0 | | | | no.48-vdxf1p-eoxesxs1i-tao-zwe | mouth once daily. | | | [...] Daniels MD 07/14/2018 3:26 PM Dictation initiated: Patriica | | | MD Frances 07/14/2018 1:17 [...]
--- OUTSIDE RECORDS SUMMARY | ~2020-07-16 | XMS | Encounter Summary ---
Demographics + + + | Address | [address] | | | [place] [address] | + + + | Home Phone [...] + + + | Author | [facility] | + + + | Organization | [facility] | + + + | Address | Unknown | + + + | Phone | Unavailable | + + + Support + + +---------+ + | Name | Relationship | Address | Phone | + + +---------+ + | Beth Mas | ECON | Unknown | | + + +---------+ + Care Team Providers + +------+ + | Care Vaccinator Name | Role | Phone | + [...] [address] | | | | | [address] | [address] | | | | | Loop Physician[address] | [place], [place] | | | | | [place], [facility] floor | [address] | | | | | [place], [place] | [phone] | | | | | [address] | | | | | | [phone] | | | +--------+ + + + [...]
--- OUTSIDE RECORDS SUMMARY | ~2020-07-16 | XMS | Encounter Summary ---
Demographics + + + | Address | [address] | | | [place] [address] | + + + | Home Phone | | + + + | Preferred Language | Unknown | + + + | Marital Status | | + + + | Anabaptist Affiliation | 1077 | + + + | Race | White | + + + | Ethnic Group | Not or | + + + Author + + + | Author | [facility] | | | and [place] | + + + | Organization | [facility] | | | [...] Team Providers + +------+ + | Care Provider Network Analyst Name | Role | Phone | [...] + + | 12/08/ | Telephone | [facility] | Kristie De Los Santos ANP | Device Check | | 2020 | | CARDIOLOGY GU[facility] | [address] | | | | | [address] | [address] [place], [place] | | | | | [place], [place] | [address] | | | | | [address] | | | | | | [phone] | | | +--------+ + + + [...] 2019. Device: Medtronic pacemaker [facility] Plan of Treatment +--------+ + + [...]
--- OUTSIDE RECORDS SUMMARY | ~2020-07-16 | XMS | Encounter Summary ---
Demographics + + + | Address | [address] | | | [place] [address] | + + + | Home Phone | | + + + | Preferred Language | Unknown | + + + | Marital Status | Unknown | + + + | Judaism Affiliation | PRO | + + + [...] Providers + +------+ + | Care Public Health Administrator Name | Role | Phone | + [...]
--- OUTSIDE RECORDS SUMMARY | ~2020-07-16 | XMS | Encounter Summary ---
Demographics + + + | Address | [address] | | | [place] [address] | + + + | Home Phone [...] Team Providers + +------+ + | Care Lighting Adviser Name | Role | Phone | + [...] 2017 | | [facility] | [address] | | | | | [address] | [address] | | | | | Loop Physician[address] | [place], [place] | | | | | [place], rust floor | [address] | | | | | [place], [place] | [phone] | | | | | [address] | | | | | | [phone] | | | +--------+ + + + [...] PSTDr. Dimitri Sidhu, pt's de ntist in [place], called stating pt is having burning sensation in his mouth. Dr. Sidhu i nquired about which medication should be presciribd that won't interfere with Keflex. He can be reached at: [phone] Dvcmpsaerkswem signed by Layne Huang at 10/07/2018 5:01 PM PSTdocumented in this encounter Plan of Treatment Not on filedocumented as of this encounter Visit Diagnoses Not on filedocumented in this encounter"
--- OUTSIDE RECORDS SUMMARY | ~2020-07-16 | XMS | Encounter Summary ---
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
--- OUTSIDE RECORDS SUMMARY | ~2020-07-16 | XMS | Encounter Summary ---
Demographics + + + | Address | [address] | | | [place] [address] | + + + | Home Phone | | + + + | Preferred Language | Unknown | + + + | Marital Status | | + + + | Moravian Affiliation | 1077 | + + + | Race | White | + + + | Ethnic Group | Not or | + + + Author + + + | Author | [facility] | | | and [place] | + + + | Organization | [facility] | | [...] Team Providers + +------+ + | Care Steel Melter Name | Role | Phone | + [...] | | | | | | | [place] | | | | | | | ESOPHAGOGAST | | | | | | | RODUODENOSCO | | | | | | | PY TRANSORAL | | | | | | | DIAGNOSTIC | | | | | | | [place] EGD | | | | | | | TRANSORAL | | | | | | | BIOPSY | | | | | | | SINGLE/MULTI | | | | | | | PLE [place] EGD | | | | | | | BALLOON | | | | | | | DILATION | | | | | | | ESOPHAGUS | | | | | | | <30 MM DIAM | | | | | | | [place] | | | | | | [...] | | | | | [address] | [address] [place] | | | | | [place] | [address] | | | | | [address] | [phone] | | | | | [phone] | | | +--------+ + + + [...] 02/10/19 1400 by | | eral | psnt-lrn-rxfpev catheter system; | Neyda Johnson RN | [...] Duane L Maxwell 78 y.o. male 1940 [id number] Procedure(s) EGD WITH DILITATION (N/A Mouth) Cooperates? [...] signed by Thang Sarmiento MD 02/10/2019 14:13 [facility] nesthesia Preprocedure Evaluation - hTang Sarmiento MD - 2018 7:36 AM PDT ANESTHESIA PREANESTHESIA EVALUATION Duane Mas 78 y.o. 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 . Pulmonary [...] situ - MEDTRONIC Class I, BMI 30-34.9 halfway current use of anticoagulant - COUMADIN Beta Blockers - Daily Use Diabetes mellitus, type II - ORAL Control Yindz-rr-Cutdrx lying flat DAIJA II Inhibitors - Daily Use Chronic renal insufficiency, stage 4 (severe) . Electronically Signed by: Thang Sarmiento MD ESi date/time: 02/10/2019 7:36 documented in [facility] s encounter Miscellaneous Notes Addendum Note - Thang Sarmiento MD - 02/10/2019 2:50 PM PDTFormatting of this note mi ght be different from the original. Addendum created 02/10/19 2200 by Thang Sarmiento MD SmartForm saved documented [...]
--- OUTSIDE RECORDS SUMMARY | ~2020-07-16 | XMS | Encounter Summary ---
Demographics + + + | Address | [address] | | | [place] [address] | + + + | Home Phone [...] Team Providers + +------+ + | Care Flute Polisher Name | Role | Phone | + +------+ + PCP | Unavailable | + +------+ + Encounter Details +--------+ + + + + | Date | Type | Department | Care Team | Description | +--------+ + + + + | 09/16/ | Hospital | [facility] | Olaf Nicole | | | 2000 | Encounter | [facility] | MD Amy [address] | | | | | GENERIC CONV DEPT | [address] | | | | | [address] | [place] [address] | | | | | [place] | [phone] | | | | | [address] | | | | | | [phone] | | | +--------+ + + + [...]
--- OUTSIDE RECORDS SUMMARY | ~2020-07-16 | XMS | Encounter Summary ---
Demographics + + + | Address | [address] | | | [place] [address] | + + + | Home Phone [...] Providers + +------+ + | Care Assistant Credit Manager Name | Role | Phone | [...] | | | | | [place], | | | | | | [place] [address] | | | +--------+--------+ + + + [...]
--- OUTSIDE RECORDS SUMMARY | ~2020-07-16 | XMS | Encounter Summary ---
Demographics + + + | Address | [address] | | | [place] [address] | + + + | Home Phone [...] Team Providers + +------+ + | Care Capsule Inspector Name | Role | Phone | [...] | | | | Loop Physician[address] | [place], [place] | | | | | Pavilion, 3rd floor | [address] | | | | | [place], [place] | [phone] | | | | | [address] | | | | | | [phone] | | | +--------+ + + + [...] Cottrell Ma - 06/24/2018 12:16 PM PDTThis [facility] has been entered into the [facility] system of care. Please contact [facility] ID at phone: [phone]; fa x: [phone] with any questions or concerns regarding this [...] sh e is fine w/ coming to [place] twice in a week as there were unsuccessful attempts at setti ng up joint appt. Care Coordination issues needing clarification: none when asked. elephone Encounter - Layne Huang - 06/18/2018 4:10 [address] PDTDr. Rinkuwilliam only sees pts at [facility] on '. Could a provide r see the pt as a joint on , 07/23? elephone Encounter - Jaye Winchester RN - 06/17/2018 1:05 PM PDTFormatting o f this note might be different from the original. 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 During t hat time,we will cooridnate so that he may follow up with ID/OPAT in regards to his treatmen t. He will be discharged to [facility] to receive inpatient therapy and OPAT. Recommendations: 1. Change Cefazolin 2g IV q8 hours, with renal adjustments as required 2. Tentative duration of Cefazolin will be 6 weeks from the time of surgery (SOT: 06/12 - [place] T: 07/24) 3. Discussed with patient that OPAT can cont. at [facility]. If patient is discharged fr om [...]
--- OUTSIDE RECORDS SUMMARY | ~2020-07-16 | XMS | Encounter Summary ---
Demographics + + + | Address | [address] | | | [place] [address] | + + + | Home Phone | | + + + | Preferred Language | Unknown | + + + | Marital Status | | + + + | Muslim Affiliation | 1077 | + + + | Race | White | + + + | Ethnic Group | Not or | + + + Author + + + | Author | [facility] | | | and [place] | + + + | Organization | [facility] | | [...] Providers + +------+ + | Care Medical Transcription Name | Role | Phone | + [...] + + | 03/01/ | Telephone | [facility] | Kristie De Los Santos ANP | Device Check | | 2020 | | CARDIOLOGY [place] | [address] | | | | | [address] | [address] [place], [place] | | | | | [place], [place] | [address] | | | | | [address] | | | | | | [phone] | | | +--------+ + + + [...]
--- OUTSIDE RECORDS SUMMARY | ~2020-07-16 | XMS | Encounter Summary ---
Demographics + + + | Address | [address] | | | [place] [address] | + + + | Home Phone [...] Author + + + | Author | [facility] | + + + | Organization | [facility] | + + + | Address | Unknown | + + + | Phone | Unavailable | + + + Support + + +---------+ + | Name | Relationship | Address | Phone | + + +---------+ + | Beth Mas | ECON | Unknown | | + + +---------+ + Care Team Providers + +------+ + | Care Sewing Machine Repairer Name | Role | Phone | [...] [facility] | | | | | | [facility] | | | | | | and Healing, | | | | | | Building [address]th | | | | | | Floor [place], [place] | | | | | | [address] | | | | | | [phone] | | | +--------+ + + + [...] Yesii | | | | | | emlida Signed 01/07/2017 | | | | | [...] [facility] | [address] | [place] [address] | | | DERMATOPATHOLOGY | [address] | | | + + + + + | [facility] | Mary [address] | [place] [address] | | | DERMATOPATHOLOGY | [address] | | | + + + + + documented in this encounter Visit Diagnoses Not on filedocumented in this encounter"
--- OUTSIDE RECORDS SUMMARY | ~2020-07-16 | XMS | Encounter Summary ---
Demographics + + + | Address | [address] | | | [place] [address] | + + + | Home Phone [...] Providers + +------+ + | Care Global Transportation Manager Name | Role | Phone | [...]
--- OUTSIDE RECORDS SUMMARY | ~2020-07-16 | XMS | Encounter Summary ---
Demographics + + + | Address | [address] | | | [place] [address] | + + + | Home Phone | | + + + | Preferred Language | Unknown | + + + | Marital Status | | + + + | Scientology Affiliation | 1077 | + + + | Race | White | + + + | Ethnic Group | Not or | + + + Author + + + | Author | [facility] | | | and [place] | + + + | Organization | [facility] | | | [...] Providers + +------+ + | Care Production Or Plant Engineer Name | Role | Phone | [...] [address] | | | | | [facility] | [place] [address] | | | | | [address] | [phone] | | | | | [phone] | | | +--------+ + + + [...] TR Vmax: | | | 2.03 m/s Temporary Help Agency Referral Clerk: CAROLYN Authenticated by: López Rothman | | [...] cmLVIDd: 5.53 cmLVPWd: 0.81 cmLVOT Area: 3.93 yz0MKOP Diam: 2.23 | | cm%FS: 24.16 %EF(Teich): 47.55 %ESV(Teich): 78.38 mlLVIDs: 4.19 cmSV(Teich): | | 71.06 mlRVIDd: 3.43 cmLVEF MOD A2C: 47.07 %SV MOD A2C: 71.24 mlLVEDV MOD A2C: | | 151.33 mlLVLd A2C: 8.47 cmLVEDV MOD A4C: 149.39 mlLVLd A4C: 8.40 cmLVESV MOD A2C: | | 80.08 mlLVLs A2C: 6.93 cmLAESV(A-L): 51.54 mlLAESV Index (A-L): 24.66 ml/m2LAAs | | A2C: 14.93 [id number] A-L A2C: 40.51 mlLALs A2C: 4.67 cmLAAs A4C: 18.74 gz7VKFVG | | A-L A4C: 64.72 mlLALs A4C: 4.60 cmRAAs: 18.61 qr5PWXIE A-L: 72.61 mlRAESV MOD: | | 64.47 mlRALs: 4.04 cmTAPSE: 1.97 cmAV maxP.48 mmHgAV meanP.71 mmHgAV | | Vmax: 1.27 m/Nikita Vmean: 0.91 m/Nikita VTI: 27.28 cmAVA Vmax: 2.66 cm2AVA (VTI): | | 2.84 bq8OEHL Vmax: 0.00 cm2/m2AVAI (VTI): 0.00 cm2/m2LVOT maxP.96 mmHgLVOT | | meanP.79 mmHgLVSI Dopp: 37.08 ml/m2LVSV Dopp: 77.51 mlLVOT Vmax: 0.86 | | m/sLVOT Vmean: 0.64 m/sLVOT VTI: 19.68 cmMV A Tramaine: 0.83 m/sMV DecT: 148.14 msMV | | E Tramaine: 0.67 m/sMV E/A Ratio: 0.81MV PHT: 42.96 msMVA By PHT: 5.12 qk3Cjucdm e': | | 0.05 m/sSeptal E/e': 11.72Lateral e': 0.10 m/sLateral E/e': 6.21RAP: 5 | | mmHgRVSP: 21.63 mmHgTR maxP.63 mmHgTR Vmax: 2.03 m/s Temporary Help Agency Referral Clerk: | | DBSAuthenticated by: [facility] Date/Time: 08-07-2017 17:18:39 IMPRESSION: | | 1. [...] |TR Vmax: 2.03 m/s | | | |Temporary Help Agency Referral Clerk: DBS | |Authenticated by: López Rothman | [...]
--- OUTSIDE RECORDS SUMMARY | ~2020-07-16 | XMS | Encounter Summary ---
Demographics + + + | Address | [address] | | | [place] [address] | + + + | Home Phone [...] Team Providers + +------+ + | Care Hydraulic Press Servicer Name | Role | Phone | + +------+ + | Gilberto Estrada MD | PCP | | + +------+ + Reason for Visit + +--------+ + | Reason | Onset | Comments | | | Date | | + +--------+ + | RN Care Management | 07/09/ | Resumed care at home post DC from [facility] | | | 2017 | | + [...] at | | | | [address] | [facility] | home post DC from | | | | [facility] | [place], [place] | [facility]); | | | | [place], [address] floor | [address] | Infectious disease | | | | [place], [place] | [phone] | | | | | [address] | | | | | | [phone] | | | +--------+ + + + [...] RN - 07/09/2018 2:39 PM Luca, from [facility] , called to inform us that the patient was DC'd from [facility] yesterday and is back on service [...]
--- OUTSIDE RECORDS SUMMARY | ~2020-07-16 | XMS | Encounter Summary ---
Demographics + + + | Address | [address] | | | [place] [address] | + + + | Home Phone | | + + + | Preferred Language | Unknown | + + + | Marital Status | | + + + | Mu-Ism Affiliation | [id number] | + + + [...] + +------+ + | Care Director Of Primary Name | Role | Phone | + [...] + + | 03/01/ | Telephone | [facility] | Kristie De Los Santos ANP | Device Check | | 2020 | | [facility] [place] | [address] | | | | | [address] | [place], [place] | | | | | [place], [place] | [address] | | | | | [address] | | | | | | [phone] | | | +--------+ + + + [...]
--- OUTSIDE RECORDS SUMMARY | ~2020-07-16 | XMS | Encounter Summary ---
Demographics + + + | Address | [address] | | | [place] [address] | + + + | Home Phone [...] Team Providers + +------+ + | Care Apparatus Repair Mechanic Name | Role | Phone | [...] | | | | [facility] | [place], [place] | | | | | [place], [address] floor | [address] | | | | | [place], [place] | [phone] | | | | | [address] | | | | | | [phone] | | | +--------+ + + + [...]
--- OUTSIDE RECORDS SUMMARY | ~2020-07-16 | XMS | Encounter Summary ---
Demographics + + + | Address | [address] | | | [place] [address] | + + + | Home Phone [...] Providers + +------+ + | Care Plant Operations Engineer Name | Role | Phone | [...] 2017 | | SW Justus Hernandez | [address] | EXCHANGE MICRO x 7 | | | | Rd [facility] | [place], [place] | PATH x 2 | | | | Hospital Admitting | [address] | | | | | Desk Located on the | [phone] | | | | | 9th floor | | | | | | [place], [place] | | | | | | [address] | | | +--------+---------+ + + + [...] (s/p PCI x3, CABG x2) complicated by property portfolio officer erich systolic heart failure (EF 45%) due [...] excellent response. He will continue PT/OT at [facility] swing bed unit. Per orthopedic [...] I-CAPS 280-10-2 mg Cap Generic drug: antiox.mv no.49-myhw1c-ljapfzd8l-fuf-ixh Take 1 capsule by mouth once daily. [...] (Non-Steroidal Anti-Inflammatory Drug) Renal Failure Avoid per Molecular Biology Director recommendations Sulfa (Sulfonamide Antibiotics) Rash Vital [...] for after-discharge care Discharge Destination IP [facility] . Specialty: Acute Care Hospital Contact information [address] [place] [id number] [place] Location: [facility] swing bed unit Appointments: Dr. Sherman on 07/23/18 at 10:40am. The discharge note was forwarded to the PCP for review. Discharging Physician: Ann Mahmood MD Suggested CPT: 75918 Discharge Management > 30 minute I spent more than 35 minutes xedl-sz-ydey with the patient of which 70% was [...] | | 0 | | | | no.86-kjtb2y-fmzqvxn6w-inq-sxa | mouth once daily. | | | [...] negative pressure wound therapy dressing right knee [id number] Subjective: Doing ok overall. No CP/SOB. Tolerating [...] Plan to DC today to SNF in [place]. SNF can pull sutures at 2 weeks from operat kai date (June 27 is 2 weeks post op). Plan to return to Dr. Sherman' clinic 6 weeks an d also have ID clinic visit on that day. Appreciate [facility] and ID help in managing this complex [...] Elias Soriano MD [facility] Department of Orthopaedics and Rehabilitation PGY-1 Pager [phone] Ann Vang MD - 4:42 PM PDT [...] lower superior vena cava Assessment and plan: Júinor Mas is a 78 y.o. Male with history of CAD (s/p PCI x3, CABG x2) complicated by property portfolio officer erich systolic heart failure (EF 45%) due [...] mg daily Dispo: Anticipate discharge tomorrow to [facility] bed unit if renal function is s table Code status: Full code Diet: Regular diet Prophy: warfarin and heparin Ann Mahmood MD Creel Operatorgang bore operator Clinical Hospitalist and Medicine Teaching Services [facility] Pager [phone] Suggested CPT: 78337 Subsequent Visit Detailed/High complexity 35 min I spent 37 minutes cire-yd-uzez with the patient of which 78% was [...] negative pressure wound therapy dressing right knee [id number] Subjective: Doing ok overall. No CP/SOB. Tolerating [...] to home as t ransporting back to [place] may present the patient and family undo [...] Soriano MD [facility] Department of Orthopaedics and Rehabilitation PGY-1 Pager [phone] atel, Tanvir - 06/16/2018 8:20 AM PDT INPATIENT INFECTIOUS DISEASE PROGRESS NOTE ID TEAM: B Patient: Júnior Mas PCP: Gimla Estrada MD Author: Tanvir Ayala Date of [...] three and a half hours away from [place]. At this time, we are unsur e of his ability to follow up with an OPAT clinic or if there is a provider near [place], where the patient resides. 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 This patient was staffed [facility] Dr. Villalobos, who agrees with the above assessment and plan unless otherwise documented. Tanvir Ayala, [facility] P SUBJECTIVE Interval Events: No acute events overnight S: patient reports he is feeling well this morning. States he was able to meet with a patient case manager and had decided to go [...] Hospital Medicine [facility] Pager [phone] I spent more than 35 minutes lvaa-ca-zodt with the patient of which greater than [...] negative pressure wound therapy dressing right knee [id number] Subjective: Doing ok overall, not too much pain in right knee. Looking forward to getting netbackup administrator to home, "My wants to get back [...] to home as t ransporting back to [place] may present the patient and family undo [...] time. JATIN Dent Orthopaedic Trauma Surgery Pager [phone] Stephan Aguirre MD - 06/14/2018 8:59 AM [...] cont carvedilol 12.5 mg bid - no PATIRCIA/ARB given renal dysfunction #DM2 - Non-insulin dependent. [...] Dona Mercado MD Division of Hospital Medicine [facility] Pager [phone] I spent more than 35 minutes bqhm-bl-nmug with the patient of which greater than [...] negative pressure wound therapy dressing right knee [id number] Subjective: Pain improving in R knee. Objective: [...] at that time. SEBAS PLEITEZ MD Pager [phone] tephan Mercado M D - 06/13/2018 9:51 [...] Hospital Medicine [facility] Pager [phone] I spent more than 35 minutes asrv-cu-qqao with the patient of which greater than [...] negative pressure wound therapy dressing right knee [id number] Subjective: Painful in R knee today, but [...] at that time. SEBAS PLEITEZ MD Pager [phone] Stephan Aguirre M D - 06/12/2018 1:24 [...] Hospital Medicine [facility] Pager [phone] I spent more than 35 minutes wmbm-ct-awfc with the patient of which greater than [...] total arthroplasty. Nika martinez was referred to [facility] for joint revision, and presented emergently to [facility] ED from [facility] ([place], [place]). Prior to presentation patient states that [...] IV (baseline cr 1.8-2.0), has had prior KS, no CVA. For his right lower extremity [...] mild distal inferior-apical ischemia, LVEF 53%. -10/2015 [facility] with 90% ostial first diagonal, 85% ostial second diagonal, occluded stent of proximal RCA with left to right coronary collaterals, Patent SVG to LAD Ischemic Cardiomyopathy c/b Chronic Systolic Heart Failure and Diastolic Heart Failure -10/2015 [facility] with EF 45% and inferiobasal [...] po daily Carvedilol 12.5mg po daily -Y [place]-3 fatty acid 1,200mg po bid Acetaminophen-codeine po [...] the Social Hx as appropriate. Lives in [place], [place], Greater than 40 PYH tobacco [...] 2012 Total Knee Replacement who presents to [facility] with septic arthritis of right knee [...] on going soft tisuse infection. -would consult account adjuster for enhanced nutrition in post-operative period Non-Insulin [...] as unclear why patient was placed on longterm anticoagulation after prior provoked DVT. Dean Ugarte MD Clinical Hospitalist Services [facility] Pager [phone] 06/11/2018 10:44 PM [facility] DEPARTMENT: Hosp ([facility]) - [id number] Place of Service: [facility] [id number] Date of Service: 07/25/2016 [facility] [id number] Modifiers:GC Resident Involved: No Service: PRIMARY HOSPITALIST Suggested CPT: 86206 Initial Visit Comp/High Complexity 70 min I [...] Frequent lab draws Procedure location: Unit:[facility] Room: 14 Providers: Attending name: Attending [...] area Basilic vein. Cat heter lot number: [id number] with a length of 55 cm was [...] Fair RN BSN VAT 3:4 4 PM Ghassna Pineda MD - 06/12/2018 2:57 PM PDTAssociated Order(s): PROCEDURE NOTEDate of Service: 08/01/2015 Attending Surgeon: Ghassan Sherman MD Boom Master(s): mesfin thompson MD Preoperative Diagnosis: 1. right total knee prosthetic joint infection. Postoperative Diagnosis: same Procedures Performed: 1. Right knee arthrotomy with drainage for infection and polyethylene exchange 2. Application TINO disposible negative pressure wound therapy dressing right knee [id number] Anesthesia: General endotracheal anesthesia. Implants: excahgned alisha triathalon poly size 15, 13mm EBL: 50 Complications: None Specimens: 6 cultures, 1 path Indication For Procedure: Solo Alves was transferred to [facility] for sepsis after previosuly having been treated with a right total knee. He ws medically unstable and transferred to [facility] medical service. An apsirate was positive. I [...] Patricia wrap. He was then awoken from [facility] and transported back to the postanesthesia [...] as it stands. Ghassan Sherman MD, MPH [employer]er, Dept. of Orthopaedics [address] [place] [address] [email or web address] docu mented in this encounter Consult Notes [...] patient will need to follow up at [facility] on July 23 with orthopedics. During t hat time,we will cooridnate so that he may follow up with ID/OPAT in regards to his treatmen t. He will be discharged to [facility] to receive inpatient therapy and OPAT. 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 at [facility]. If patient is discharged fr [...] the primary team. This patient was staffed [facility] Dr. Villalobos, who agrees with the above assessment and plan unless otherwise documented. Tanvir Ayala, [facility] P SUBJECTIVE Interval Events: No acute [...] to be continued via OPAT at [facility] Microbiology Data: Source Date Results Tissue cultures [...] tablet allopurinol 300 mg oral tablet antiox.mv no.47-kxmk6y-dmxnddx2q-twe-gmn (I-CAPS) 280-10-2 mg oral capsule carvedilol 12.5 [...] Anticoagulation Clinic/Provider: New PCP Dr. Don Estrada ([phone]) Date INR Warfarin Dose 06/17/2018 1.78 2.5 [...] make recommendations. Please page clinical ph armacist (#[phone]) or call central inpatient pharmacy ([phone]) with questions. Rashard Jacob Pharm. D. Candidate Associated attestation - Mary Wade [facility] - 06/17/2018 11:14 AM PDT--I have reviewed the note written by pharmacy innovation assistant Rashard Jacob and I agree with the content and his plan for warfarin on this patient. Thank you, Mary Mauro [facility]. Pager [phone] Wade Mary [facility] - 06/16/2018 1:26 PM PDTFormatting of this [...] Anticoagulation Clinic/Provider: new PCP Dr. Don Estrada ([phone]) Date INR Warfarin Dose 06/16/2018 1.51 2.5mg [...] make recommendations. Please page clinical ph armacist (#[phone]) or call central inpatient pharmacy ([phone]) with questions. Thank you for consult, Mayr Wade [facility]. Pager [phone] Trish Blankenship MD - 10:46 AM PDTAssociated Order(s): IP CONSULT TO INFECTIOUS DISEASESFormatting of thi s note might be different from the original. [facility] Infectious Diseases OPAT Referral for Discharge Planning Team B: OPAT RN Jaye Young, Office: [phone], Pager: [phone] ID Diagnosis: PJI Antibiotic agent and dosing: [...] (pt has an ortho appointment 10:40 ) Boom Master: For all patients requiring IV antibiotic therapy, please route your OPAT [place] n of Care Note (.CMOPAT) to [facility] "p OPAT/Infectious Diseases clinic" Pool at discharge. [...] and make recommendations. Please page clinical pharmacist (#[phone]) or call central inpatient pharmacy ([phone]) with questions. Subjective/Objective: Allergies: Nsaids (non-steroidal anti-inflammatory [...] by his new PCP Don Estrada MD ([phone]). The patient reports Dr Estrada wanted him [...] D. 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 We will discuss [facility] OPAT vs outside providers. Formalized recs pending Recommendations were communicated directly to the primary team. This patient was staffed [facility] Dr. Villalobos, who agrees with the [...] arthritis. The patient was then transferred from [place] to [facility] for fu rther evaluation. While here, imaging [...] 300 mg by mouth once daily. antiox. no.51-salw3a-mdjwzbm8k-mtz-liz (I-CAPS) 280-10-2 mg oral capsule Take 1 [...] (Non-Steroidal Anti-Inflammatory Drug) Renal Failure Avoid per Molecular Biology Director recommendations Sulfa (Sulfonamide Antibiotics) Rash Social History [...] care. Ishaan Villalobos MD Division of Infectious DiseasesVesta, Ramon, PharmD - 06/14/2018 7:36 PM PDT [...] lab draw. - Please page clinical pharmacist (#[phone]) or call central inpatient pharmacy ([phone]) wit h questions. Subjective/Objective: Júnior Mas, a [...] CULTURE, TISSUE-PROSTHETIC JOINT INFECTION AER AND MARIELOS [[id number]] (Abnormal) KP LAB Collec dilcia: 06/12/18 1354 Lab Status: Preliminary result Specimen: Tissue from Knee - right Updated: 06/14/18 1344 CULTURE RESULT LAB Staphylococcus epidermidis (A) Ref Range: Narrative: Culture Report: Staphylococcus epidermidis Gram Stain: No squamous epithelial cells Rare polymorphonuclear cells No organisms seen Thank you, Ramon Mercado, PharmD, [facility] Clinical Pharmacist alickn, Torey Adame rmD - [...] and make recommendations. Please page clinical pharmacist (#[phone]) or call central inpatient pharmacy ([phone]) with questions. Subjective/Objective: Júnior Mas, a 78 [...] by his new PCP Don Estrada MD ([phone]). The patient reports Dr Estrada wanted him [...] you for the consult, Evgeny Akers PharmD, [facility] Pager [phone] Evgeny Robles PharmD - 06/13/2018 8:41 AM [...] on stable regimen. Please page clinical pharmacist (#[phone]) or call central inpatient pharmacy ([phone]) with q uestions. Subjective/Objective: Indication: infectious disorder of joint Therapy start date: 06/12/18 Anticipated duration: TBD Goal trough: ~15 mg/L Urine output: unavailable for most of the past 24 hours Renal function: stable , current SCr 1.66 (Baseline SCr 1.6-1.8) Actual body weight: Weight: 86.7 kg (191 lb 1.6 oz) (06/13/18 7788) Pertinent cultures/sensitivities: 06/12/18 blood and tissue cultures - in process Thank you for the consult, Evgeny Akers PharmD, [facility] Pager [phone] Harley Echols MD - 06/11/2018 7:27 PM PDT [facility] DEPARTMENT OF ORTHOPAEDICS & REHABILITATION HISTORY & PHYSICAL EXAMINATION Patient: Júnior Mas Encounter Date: 06/11/2018 Attending Physician: Maral Leon MD HISTORY OF PRESENT ILLNESS: Júnior Mas is a 78 year old male with CHF, gout, CAD with prior KS, DMII, HTN who presents with 2 weeks of progressive right knee pain, stiffness, fevers and malaise. He had his tota l knee arthroplasty done in [address] Hurst at [facility] for advance d DJD. He's had no problems with his knee replacement until 2 weeks ago. Denies any trauma, recent infection, colonoscopy or dental procedure. He has chronic venous stasis with blister formation on the RLE. He denies any pain or complaints elsewhere. He presents as a transfer from an [facility] hospital where there was a concern for a septic prost hetic knee. ESR was 112, CRP 159 and WBC count of 8. An arthrocentesis was performed today w hich demonstrated 78K WBC (95% PMN), 90K RBCs, no crystal and no organisms seen with culture s pending. He was transferred to [facility] for further management of a septic prosthetic knee. Implants: [place] Triathlon Total Knee System 1. Size 4 [...] up appointment in approximately 2 weeks w [facility] ORTHO TRAUMA & FRACTURE, The orthopaedics consult pager is #[phone], please call with questions. Harley Weaver MD Resident Department of Orthopaedics Pager [phone] [facility] Department of Orthopaedics & Rehabilitation [phone] [facility] Mail Code: OP31 [facility] [phone] Associated attestation - Ghassan Sherman MD - [...] call me for questions. GHASSAN SHERMAN MD [facility] [address] [address]/[id number] [place] [address] documented in this encounter ED Notes Carla [...] (H) 0.70 - 1.30 mg/dL EGFR - MACANESE 39 (L) >60 mL/min EGFR NON -MACANESE 32 (L) >60 mL/min SODIUM, PLASMA (LAB) [...] the ED with R knee arthroplasty infection. dL huerta for washout in AM and possible [...] total knee replacement in 2013 done in [facility]. Right k nee also became more swollen at that time, though without any warmth or redness. Pain worse with any movement and better at rest. He was evaluated by his PCP and started on coumadin for question of DVT, though RLE ultraso und was negative. Seen by Dr. René Yen (orthopedics) in [place] 06/09 with the following labs. - WBC [...] Heart block 06/11/2018 Pacemaker-dependent due to [place] cardiac rhythm insufficient to support life 8 [...] exam, work-up with his orthopedic surgeon and [place], he has a right knee prosthetic joint infection. Laboratory and imaging results including ESR, CRP were reviewed and interpreted, and notabl e for the following: - significantly elevated ESR and CRP - arthrocentesis at [place] with 79,000 WBCs The patient received the [...] Information: Patient discharging to swing bed at [facility] in [facility]. Reviewed DC to SNF AVS with patient and family, all questions answered, reinforced fo llow up appointments per AVS. PICC line in RUE with dressing CDI at discharge. TINO dressing CDI with green light flashing at discharge. [facility] Transportation provided by [...] prevention even in recliner chair. (06/15/18 0940) [facility] IP NURSE HANDOFF: [facility] course events: [...] njury prevention even in recliner chair. (06/15/18 7925) [facility] IP NURSE HANDOFF: [facility] hospital course events: [...] Met Case Management OPAT Plan of Care: [facility] hospital discharge date: 06/17/2018 This patient will be followed for all post hospital OPAT care needs by: [facility] OPAT/Infectiou s Diseases Clinic, ; IV antibiotic orders were provided to: Other vendor facility, Name: [facility] Swi ng Bed, , , [...] throughout session other than pt and therapist: rehabilitator Current unit: 9k Brief Hospital Course:Júnior Mas [...] with FWW: minimum assist, 15 feet with rehabilitator stand by assist and follow ing with wheelchair. Chair to chair transfer front wheeled walker and minimum assist Pt left up in recliner chair, call light/urinal and belongings all in reach. [facility] BASIC MOBILITY Difficulty turning over in bed [...] to do/total assistance - Total/Dependen t Assist [facility] Basic Mobility Total Score 14 Interpretation of [facility] Short Form - Basic Mobility: CMS Modifier [...] to be determined . Umm Joy, BRICE [id number] andoff - Emily Covarrubias RN - 06/16/2018 [...] njury prevention even in recliner chair. (06/15/18 5252) [facility] IP NURSE HANDOFF: [facility] hospital course events: [...] As evidenced by: Poor intake tonight from 4806-3729 despite encouragement. He states that his water [...] njury prevention even in recliner chair. (06/15/18 0972) [facility] IP NURSE HANDOFF: [facility] hospital course events: [...] throughout session other than pt and therapist: rehabilitator and student observer Current unit: 9k Brief [...] cell phone and water all in reach. [facility] BASIC MOBILITY Difficulty turning over in bed [...] to do/total assistance - Total/Dependen t Assist [facility] Basic Mobility Total Score 9 Interpretation of [facility] Short Form - Basic Mobility: CMS Modifier [...] Equipment recommendations: to be determined [place] Blount [id number] andoff - Maria Dolores Gurrola RN - [...] njury prevention even in recliner chair. (06/15/18 8851) [facility] IP NURSE HANDOFF: [facility] hospital course events: [...] at EOB finishing breakfast with family at [facility]. Recliner found and placed in [...] nutrient distribution type or amount Nutrition Assessment: core microarchitect received. Pt does not like food here, [...] intake Following, Ivana Mendez, MS, RD, LD, [facility] Pager #: [phone] Comments: Júnior Mas is a 78 y.o. 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 Monitor UOP- no ouput from 6089-0309. [facility] notified- BMS ordered. encourage fluids. MOBILITY: 2pa [...] PM PDT Physical Therapy Evaluation and Treatment [id number] [facility] Day: 3 Date [...] going down ramp) Vision/Hearing: hearing aids (very [place]; states he refuses hearing aids) Patient / Family Goal: patient will not state; patient : For patient to return home. Language: Urdu. Barriers: Very [place], not fully attentive. Pain: "lots"; refuses to [...] assist after focus on m idline. PT, PET CARE ASSOCIATE and patient encourage patient to get up to a chair, with assistance, patient r efused 4 times. Outcome Measure(s): 5 Time Sit to Stand: unable. >15 seconds predicts recurrent fallers [facility] BASIC MOBILITY Difficulty turning over in bed [...] to do/total assistance - Total/Dependen t Assist [facility] Basic Mobility Total Score 9 Interpretation of [facility] Short Form - Basic Mobility: CMS Modifier [...] underestimate Ended session: Patient supine in bed. PET CARE ASSOCIATE attending to patient. ASSESSMENT: Patient presents s/p [...] RN - 06/14/2018 2:37 AM PDTNursing Handoff [facility] IP NURSE HANDOFF: [facility] hospital course events: [...] RN - 06/13/2018 1:32 AM PDTNursing Handoff [facility] IP NURSE HANDOFF: [facility] hospital course events: [...] Saige Rivera RN - 06/12/2018 8:36 PM [facility] Discharge Criteria (Stable For Transfer): [...] information: see anesthesia record Functional Epidural: No OPERATIONS PROGRAM MANAGER: No Respiratory: RR: 17, O2 Sat: 98 %, O2 Delivery: Nasal cannula Breath Sounds: WDL Except (SEUN - not diagnosed) TAYLOR: LLL: RUL: RLL: SEUN No Comment: none Cardiac: BP: 113/47 HR: 94 GI: Nausea/Vomiting Status: No Signs/Symptoms: Interventions: Assessment: Comments: toleratingPO : Last void: at 1900 Contact Name: Beth Contact Number: [phone] Family contacted: Yes Comment:updated family Belongings:none in PACU [facility] - Rahel Shaw RN - 06/12/2018 [...] Valle MD [facility] ransfer Note - Arnie Busby ANP - 06/11/2018 3:19 PM PDT Call from Dr. Eric Yen, [facility] Pt with hx of CHF with significant fluid retention, right knee replacement, chronic leg ulc ers has infected total knee. Presented to clinic today with right knee swelling and pain. Right knee aspirate today: 79k white cells Markedly elevated CRP and sed rate Temp 99.4, vitals stable and normal Spoke with [facility] orthopedic surgeon Dr. Leon who advised transfer to [facility] ED Pt coming now via POV [facility] Rita Sandhu - 06/11/2018 3:19 PM PDTPt with post procedure infection, R total knee. Connected ref with ROCAEL Sanders. [facility] Rita Barker - 06/11/2018 2:09 PM PDTRef previously consulted [facility] ortho Dr. Maral Leon who advised PT to come to [facility] ED. Advised Dr. Yen to call ED [...] | + + + + + | [facility] | [address] | [place], [place] | | | OPHELIA LOZADA OF CARE | [address] | [address] | | | TESTS | | | [...] | + + + + + | [facility] | [address] | [place] [address] | | | SERVICES, CORE | DANI [...] | | | LABORATORY | | | MACANESE | | | SERVICES, | | | [...] | + + + + + | [facility] | [address] | [place] [address] | | | SERVICES, CORE | DANI [...] D[facility] | [address] | [place], [place] | | | OPHELIA LOZADA OF FUAD | [address] | [address] | | | TESTS | | | [...] [facility] | [address] | [place], [place] | | | KIERRA CLEMSON OF [facility] | [address] | [address] | | | TESTS | | | [...] draws Procedure location: | | | Unit:[facility] Room: 14 Providers: Attending name: Attending | [...] | area Basilic vein. Catheter lot number: [id number] with a length of 55 | | [...] [facility] | [address] | [place], [place] | | | KIERRA POINT OF CARE | [address] | [address] | | | TESTS | | | [...] | + + + + + | [facility] | [address] | [place] [address] | | | SERVICES, CORE | DANI [...] | | | LABORATORY | | | MACANESE | | | SERVICES, | | | [...] | + + + + + | [facility] | [address] | [place] [address] | | | SERVICES, CORE | DANI [...] [facility] | [address] | [place], [place] | | | OPHELIA LOZADA OF CARE | [address] | [address] | | | TESTS | | | [...] DARSHANA | [address] | [place], [place] | | | OPHELIA LOZADA OF CARE | [address] | [address] | | | TESTS | | | [...] (H) | 70 - 99 mg/dL | [facility] - | | | GLUCOSE, | | [...] [facility] | [address] | [place], [place] | | | OPHELIA LOZADA OF CARE | [address] | [address] | | | TESTS | | | [...] | + + + + + | [facility] | [address] | [place] [address] | | | SERVICES, CORE | DANI [...] | | | LABORATORY | | | MACANESE | | | SERVICES, | | | [...] | + + + + + | [facility] | [address] | [place] [address] | | | SERVICES, CORE | DANI [...] [facility] | [address] | [place] [address] | | | SERVICES, CORE | PARK [...] [facility] | [address] | [place] [address] | | | SERVICES, CORE | PARK [...] | + + + + + | [facility] | [address] | [place] [address] | | | SERVICES, CORE | PARK [...] [facility] | [address] | [place] [address] | | | KAREEM FINCH | DANI [...] [facility] | [address] | [place], [place] | | | KIERRA POINT OF CARE | [facility] | [address] | | | TESTS | | | [...] | | | LABORATORY | | | MACANESE | | | SERVICES, | | | [...] is appropriate. | LABORATORY | | Page [phone] or call [phone] with questions. Thank you. GFR is | [...] | + + + + + | [facility] | [address] | [place] [address] | | | SERVICES, CORE | DANI [...] + + | [facility] | [address] | [place] [address] | | | SERVICES, KAREEM | DANI [...] is appropriate. | LABORATORY | | Page [phone] or call [phone] with questions. Thank you. | SERVICES, CORE | + + + + + + + + | Performing | Address | City/State/Zipcode | Phone Number | | Organization | | | | + + + + + | [facility] | [address] | [place] [address] | | | SERVICES, KAREEM | [address] [...] [facility] | [address] | [place], [place] | | | OPHELIA LOZADA OF CARE | [address] | [address] | | | TESTS | | | [...] DARSHANA | [address] | [place], [place] | | | LINCOLN PARK POINT OF [facility] | [address] | [address] | | | TESTS | | | [...] | + + + + + | [facility] | [address] | [place] [address] | | | SERVICES, CORE | DANI [...] | | | LABORATORY | | | MACANESE | | | SERVICES, | | | [...] | + + + + + | [facility] | [address] | [place] [address] | | | KAREEM FINCH | DANI [...] [facility] | [address] | [place], [place] | | | KIERRA POINT OF CARE | [address] | [address] | | | TESTS | | | [...] [facility] | [address] | [place], [place] | | | OPHELIA LOZADA OF [facility] | [address] | [address] | | | TESTS | | | [...] [facility] | [address] | [place], [place] | | | OPHELIA LOZADA OF CARE | [address] | [address] | | | TESTS | | | [...] | + + + + + | [facility] | [address] | [place], [place] | | | CARDIOLOGY | [address] | [address] | | + + + + + [...] D[facility]SHANA | [address] | [place], [place] | | | OPHELIA LOZADA OF CARE | [facility] | [address] | | | TESTS | | | [...] | + + + + + | [facility] | [address] | [place] [address] | | | SERVICES, CORE | [address] [...] | | | LABORATORY | | | MACANESE | | | SERVICES, | | | [...] | + + + + + | [facility] | [address] | [place] [address] | | | SERVICES, CORE | PARK [...] | + + + + + | [facility] | [address] | [place] [address] | | | SERVICES, CORE | DANI [...] | | | LABORATORY | | | MACANESE | | | SERVICES, | | | [...] | + + + + + | [facility] | [address] | [place] [address] | | | SERVICES, CORE | PARK [...] + + | [facility] | [address] | [place] [address] | | | SERVICES, | [address] [...] | + + + + + | [facility] | [address] | [place] [address] | | | SERVICES, | [address] [...] | + + + + + | [facility] | [address] | [place] [address] | | | KAREEM FINCH | [address] [...] [facility] | [address] | [place] [address] | | | SERVICES, | [address] [...] | + + + + + | [facility] | [address] | [place] [address] | | | SERVICES, CORE | DANI [...] (H) | 70 - 99 mg/dL | [facility] - | | | GLUCOSE, | | [...] [facility] | [address] | [place], [place] | | | KIERRA POINT OF CARE | [address] | [address] | | | TESTS | | | [...] | | | LABORATORY | | | MACANESE | | | SERVICES, | | | [...] | + + + + + | [facility] | [address] | [place] [address] | | | KAREEM FINCH | DANI [...] | + + + + + | [facility] | [address] | [place] [address] | | | SERVICES, CORE | DANI [...] (H) | 70 - 99 mg/dL | [facility] - | | | GLUCOSE, | | [...] [facility] | [address] | [place], [place] | | | OPHELIA LOZADA OF [facility] | [address] | [address] | | | TESTS | | | | + + + + + PROCEDURE NOTE (06/12/2018 2:57 PM PDT) + + + | Narrative | Performed At | + + + | Ghassan Sherman MD 06/17/2018 2:15 PM Date of Service: | | | 08/01/2015 Attending Surgeon: Ghassan Sherman MD | | | Boom Master(s): mesfin thompson MD Preoperative Diagnosis: 1. 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 Postoperative Diagnosis: | | | same Procedures Performed: 1. Right knee arthrotomy with | | | drainage for infection and polyethylene exchange 2. Application | | | TINO disposible negative pressure wound therapy dressing right knee | | | [id number] Anesthesia: General endotracheal anesthesia. | | | Implants: excahgned alisha triathalon poly size 15, 13mm EBL: 50 | | | Complications: None Specimens: 6 cultures, 1 path Indication | | | For Procedure: Solo Alves was transferred to [facility] for sepsis | | | after previosuly [...] | | stands. Ghassan Sherman MD, MPH Mash Tub Cooker, Dept. of | | | Orthopaedics [place] [address] [address] | | | Maricel [address]aga. [address] [place] [address] | | | [email or web address] | | + + + CAPILLARY BLOOD [...] [facility] | [address] | [place], [place] | | | OPHELIA LOZADA OF CARE | [address] | [address] | | | TESTS | | | [...] [facility] | [address] | [place], [place] | | | OPHELIA LOZADA OF [facility] | [address] | [address] | | | TESTS | | | [...] - | | | | | | [place] | | + + + + + [...] due to growth of other | [facility] | | organsims. Gram Stain: No squamous epithelial cells Moderate | | | polymorphonuclear cells No organisms seen | | + + + + + + + + | Performing | Address | City/State/Zipcode | Phone Number | | Organization | | | | + + + + + | [facility] | [address] | [place] [address] | | | [place] | | | [...] + | [facility] | [address] | [place] [address] | | | [place] | | | [...] + | [facility] | [address] | [place] [address] | | | [place] | | | [...] + | [facility] | [address] | [place] [address] | | | [place] | | | [...] | + + + + + | [facility] | [address] | [place] [address] | | | [place] | | | [...] | | | | | | number [phone].A. Knee, | | | | | | [...] | + + + + + | [facility] | [address] | [place] [address] | | | PATHOLOGY | [address] [...] - | | | | | | [place] | | + + + + + [...] + | [facility] | [address] | [place] [address] | | | [place] | | | | + + + [...] [facility] | [address] | [place], [place] | | | OPHELIA LOZADA OF CARE | [facility] | [address] | | | TESTS | | | [...] [facility] | [address] | [place], [place] | | | OPHELIA LOZADA OF CARE | [facility] | [address] | | | TESTS | | | [...] [facility] | [address] | [place], [place] | | | KIERRA POINT OF CARE | [address] | [address] | | | TESTS | | | [...] | + + + + + | [facility] | [address] | [place] [address] | | | SERVICES, CORE | DANI [...] [facility] | [address] | [place] [address] | | | STEF, CORE | PARK [...] | + + + + + | [facility] | [address] | [place] [address] | | | SERVICES, CORE | PARK [...] | + + + + + | [facility] | [address] | [place] [address] | | | SERVICES, CORE | DANI [...] | + + + + + | [facility] | [address] | [place] [address] | | | STEF | DANI ALEXIS [...] | + + + + + | [facility] | [address] | [place] [address] | | | KAREEM FINCH | DANI [...] | | | LABORATORY | | | MACANESE | | | SERVICES, | | | [...] the MDRD equation recommended by the | [employer] | | National Kidney Disease Education Program. [...] [facility] | [address] | [place] [address] | | | SERVICES, CORE | DANI [...] 36.5 (H) | 26.0 - 36.0 | [facility] | | | | | seconds | [...] | + + + + + | [facility] | [address] | [place] [address] | | | SERVICES, CORE | [address] [...] (H) | 0.90 - 1.20 INR | [facility] | | | | | | LABORATORY [...] [facility] | [address] | [place] [address] | | | SERVICES, CORE | [address] [...] [facility] | [address] | [place] [address] | | | SERVICES, CORE | [address] [...] [facility] | [address] | [place] [address] | | | SERVICES, KAREEM | [address] | | | + + + + + ED INFORMATION EXCHANGE (06/11/2018 6:04 PM PDT) + + | Specimen | + + | | + + + + + | Narrative | Performed At | + + + | [id number] This patient has registered at the [place] | [facility] | | [facility] Emergency Department For more | MEDICAL | | information visit: | TECHNOLOGIES | | [email or web address] | | | 35ffec Security Events No [...] | 2017 [facility] [place] Emergency | | | Emergency 10,800. REF Recent Inpatient Visit | | | Summary No recorded inpatient visits. E.D. Visit Count (12 mo.) | | | Facility Visits [facility] 1 Total 1 | | | Note: [...] | | facilities for additional information. 2018 [employer] | | | [employer] - [place], [place] - | | | [email or web address] | | + + + + + | Procedure Note | + + | Service Account, Rtf Results Inbound - 06/11/2018 6:06 PM PDT Formatting of this | | note might be different from the original.DANIEL?NOTIFICATION?06/11/2018 18:04?MAXWELL | | JÚNIOR? patient has registered at the [facility] | | [place] Emergency Department For more information visit: | | [email or web address] Security | | EventsNo recent Security Events currently on fileED Care GuidelinesThere are currently | | no ED Care Guidelines in DANIEL for this patient. Please check your facility's medical | | records system.Recent Emergency Department Visit SummaryAdmit Date Facility [facility] State | | Type Major Type Diagnoses or Chief Complaint Jun 11, 2018 [facility] | | [facility] Emergency Emergency 10,800. REF Recent Inpatient Visit | | SummaryNo recorded inpatient visits. E.D. Visit Count (12 mo.)Facility Visits [place] | | [facility] 1 Total 1 Note: Visits [...] aforementioned facilities for additional information. ? 2018 [employer] | | [facility], [place] - [email or web address] | |Facility Visits | |[facility] 1 | |Total 1 | |Note: Visits [...] facilities for additional information. | |? 2018 [employer] - [place], [place] - [email or web address] | + + + + + + + | Performing | Address | City/State/Zipcode | Phone Number | | Organization | | | | + + + + + | [facility] | [address] | [place], [place] | [phone] | | TECHNOLOGIES | [address] | [address] | | + + + + + [...] g, oral, NEEDED, Starting | | | [facility] 06/11/18 at 2306, Until Wed | | [...]
--- OUTSIDE RECORDS SUMMARY | ~2020-07-16 | XMS | Encounter Summary ---
Demographics + + + | Address | [address] | | | [place] [address] | + + + | Home Phone [...] + + + | Author | [facility] | + + + | Organization | [facility] | + + + | Address | Unknown | + + + | Phone | Unavailable | + + + Support + + +---------+ + | Name | Relationship | Address | Phone | + + +---------+ + | Beth Mas | ECON | Unknown | | + + +---------+ + Care Team Providers + +------+ + | Care Interventional Sale Consultant Name | Role | Phone | [...] | 2018 | Event | [address] | [address] | | | | | Jr [facility] | [facility] | | | | | Hospital Admitting | [place], [place] | | | | | Desk Located on the | [address] | | | | | 9th floor | [phone] | | | | | [place], [place] | | | | | | [address] | | | +--------+ + + + [...]
--- OUTSIDE RECORDS SUMMARY | ~2020-07-16 | XMS | Encounter Summary ---
Demographics + + + | Address | [address] | | | [place] [address] | + + + | Home Phone [...] Team Providers + +------+ + | Care Electroneurodiagnostic Technologist Name | Role | Phone | + [...] | | | | | | | HI | | | | | | | ESOPHAGOGAST | | | | | | | RODUODENOSCO | | | | | | | PY TRANSORAL | | | | | | | DIAGNOSTIC | | | | | | | HI EGD | | | | | | | BALLOON | | | | | | | DILATION | | | | | | | ESOPHAGUS | | | | | | | <30 MM DIAM | | | | | | | HI | | | | | | | [...] + + | 07/31/ | Surgery | [facility] | Willow Colin MD | EGD with Dilation | | 2017 | | MED CTR MP INTRA OP | [address] | | | | | [address] | [address], | | | | | [place], [place] | [place] [address] | | | | | [address] | [phone] | | | | | [phone] | | | +--------+---------+ + + + [...] fluids. 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 primer supervisor omeprazole at [place]. documented in this encounter Medications at [...] Electronically signed Willow Colin MD 07/31/2017 14:06 [facility] 2:1 1 PM PDTOp Note - [...] [address] | [place] | [phone] | | [facility] | | [address] | | | - LABORATORY | | [...] Negative for Helicobacter pylori with HE stain. [facility]:caw:C2NR GROSS | | | DESCRIPTION: [...] technical and professional components were performed by [employer] | | | [employer], [address] [place] [address] | | | (Environmental Tech: Don Morrell D.O.; [facility]#: [id number]). | | | Diagnostician: Gavin Michaud MD [...]
--- OUTSIDE RECORDS SUMMARY | ~2020-07-16 | XMS | Encounter Summary ---
Demographics + + + | Address | [address] | | | [place] [address] | + + + | Home Phone [...] Team Providers + +------+ + | Care Combat Systems Operator Name | Role | Phone | + +------+ + PCP | Unavailable | + +------+ + Encounter Details +--------+ + + + + | Date | Type | Department | Care Team | Description | +--------+ + + + + | 09/16/ | Hospital | [facility] | Olaf Nicole | | | 2000 | Encounter | [facility] | MD [address] | | | | | GENERIC CONV DEPT | [address] | | | | | [address] | [place] [address] | | | | | [place] | [phone] | | | | | [address] | | | | | | [phone] | | | +--------+ + + + [...]
--- OUTSIDE RECORDS SUMMARY | ~2020-07-16 | XMS | Encounter Summary ---
Demographics + + + | Address | [address] | | | [place] [address] | + + + | Home Phone [...] Team Providers + +------+ + | Care Conveyor Weigher Operator Name | Role | Phone | [...] | | | | | | | SD | | | | | | | ESOPHAGOGAST | | | | | | | RODUODENOSCO | | | | | | | PY TRANSORAL | | | | | | | DIAGNOSTIC | | | | | | | SD EGD | | | | | | | TRANSORAL | | | | | | | BIOPSY | | | | | | | SINGLE/MULTI | | | | | | | PLE SD EGD | | | | | | | BALLOON | | | | | | | DILATION | | | | | | | ESOPHAGUS | | | | | | | <30 MM DIAM | | | | | | | SD | | | | | | | [...] | | | | | [address] | [address], | | | | | [place] | [place] [address] | | | | | [address] | [phone] | | | | | [phone] | | | +--------+---------+ + + + [...] You can't be awakened Date Last Reviewed: 08/13/201619991363-2651 [employer]. [address] [place] [address]. All [facility] ts reserved. This information is not [...] you take. This includes prescription medicines, o ukl-jlz-denixea medicines, herbs, vitamins, and other supplements. Be [...] icine to relax you. The procedure takes mbuis10nwytwwa. It does not cause trouble breath ing. [...] Black, tarry, or bloodystools Date Last Reviewed: 04/26/201619999763-5988 [employer]. [address] [place] [address], [place] [address]. All righ ts reserved. This information is [...] prescription medicines Herbs, vitamins, and other supplements Yxps-zbm-ixofouu medicines such as aspirin or ibuprofen Street [...] heart or lung disease Date Last Reviewed: 05/27/201719993246-1144 [employer]. [address] [place] [address]. All righ ts reserved. This information is [...] losartan (COZAAR) | | | 0 | 11/13/20 | | | 50 mg tablet | [...] signed by: Willow Colin MD, 02/10/2019 13:00 [facility] by Willow Colin MD [...] + + | [address] | [address] [facility] [address] | [place] [address] | [phone] | | [place] | | | [...] [address] | [place] | [phone] | | [facility] | | [address] | | | - LABORATORY | | [...] technical and professional components were performed by [employer] | | | [employer], [address] [place] [address] | | | (Cash Posting Clerk: Don Morrell D.O.; [facility]#: [id number]). | | | Diagnostician: Gely Cerna MD [...]
--- OUTSIDE RECORDS SUMMARY | ~2020-07-16 | XMS | Encounter Summary ---
Demographics + + + | Address | [address] | | | [place] [address] | + + + | Home Phone [...] Team Providers + +------+ + | Care Shoddy Mill Worker Name | Role | Phone | + +------+ + | Erin Forrester MD | PCP | | + +------+ + Encounter Details +--------+ + + + + | Date | Type | Department | Care Team | Description | +--------+ + + + + | 12/06/ | Orders Only | [facility] | Conversion | | | 2017 | | CARDIOLOGY [place] | Transaction, | | | | | [address] | Provider Unknown | | | | | [place] | [phone] | | | | | [address] | | | | | | [phone] | | | +--------+ + + + [...]
--- OUTSIDE RECORDS SUMMARY | ~2020-07-16 | XMS | Encounter Summary ---
Demographics + + + | Address | [address] | | | [place] [address] | + + + | Home Phone [...] Providers + +------+ + | Care Supervisor Fine Grading Name | Role | Phone | + [...] | | | | and | | [address] | | | | | inflammatory | | [address] | | | | | reaction | | [address] [place], | | | | | due to | | [place] | | | | | internal | | [address] | | | | | right knee | | Phone: | | | | | prosthesis, | | [phone] | | | | | initial | | Fax: | | | | | encounter | | [phone] | +--------+--------+ + + + + Encounter [...] | | | [address] | [facility] | joint, subsequent | | | | Loop Physician's | [place], [place] | encounter (Primary | | | | [place], 3rd floor | [address] | Dx); care home | | | | [place], [place] | [phone] | (current) use of | | | | [address] | | antibiotics | | | | [phone] | | | +--------+---------+ + + + [...] ), Disp: 30 tablet, Rfl: 0 antiox. no.97-vzch5j-rybqdhk2o-czu-bkh (I-CAPS) 280-10-2 mg oral capsule, Take 1 [...] Pt has no other follow-up needed at [facility] at this time so will contact his PCP to see if continued prescribing of cephalexin can be managed locally Abril Shields MD Infectious Diseases documented in this encounter Plan of Treatment Not on filedocumented as of this encounter Visit Diagnoses + + | Diagnosis | + + | Infection of prosthetic knee joint, subsequent encounter - Primary | + + | care home (current) use of antibiotics | + + documented in this encounter"
--- OUTSIDE RECORDS SUMMARY | ~2020-07-16 | XMS | Encounter Summary ---
Demographics + + + | Address | [address] | | | [place] [address] | + + + | Home Phone | | + + + | Preferred Language | Unknown | + + + | Marital Status | | + + + | Alevism Affiliation | 1077 | + + + | Race | White | + + + | Ethnic Group | Not or | + + + Author + + + | Author | [facility] | | | and [place] | + + + | Organization | [facility] | | [...] + +------+ + | Care Director Of Early Childhood Name | Role | Phone | + [...] + + | 09/29/ | Telephone | [facility] | Kristie De Los Santos ANP | Patient Concerns | | 2019 | | [facility] [place] | [address] | | | | | [address] | [place], [place] | | | | | [place], [place] | [address] | | | | | [address] | | | | | | [phone] | | | +--------+ + + + [...]
--- OUTSIDE RECORDS SUMMARY | ~2020-07-16 | XMS | Encounter Summary ---
Demographics + + + | Address | [address] | | | [place] [address] | + + + | Home Phone [...] Team Providers + +------+ + | Care Belly Packer Name | Role | Phone | + +------+ + | Gilebrto Estrada MD | PCP | | + [...] | | | | [facility] | [place], [place] | | | | | [place], 3rd floor | [address] | | | | | [place], [place] | [phone] | | | | | [address] | | | | | | [phone] | | | +--------+ + + + [...] Jaye Winchester RN - 06/24/2018 9:43 AM [facility] check in - Transitional Care Management Note ASSESSMENT Spoke with nurse Aguilera at [facility] at [phone]. Verified fax number: [phone] She stated that infusions of Cefazolin 2gm [...] updated lab orders to include CRP to [phone]. NURSING OUTCOME EVALUATION Previous nursing concern(s): no [...] CENTER INFECTIOUS DISEASE PPV INFECTIOUS DISEASES AT [facility] 3RD FLOOR [address] [place] [address] documented in this en counter Plan of Treatment Not on filedocumented as of this encounter Visit Diagnoses Not on filedocumented in this encounter"
--- OUTSIDE RECORDS SUMMARY | ~2020-07-16 | XMS | Encounter Summary ---
Demographics + + + | Address | [address] | | | [place] [address] | + + + | Home Phone [...] Team Providers + +------+ + | Care Delicatessen Manager Name | Role | Phone | [...] [address]ADMIN[address] | | | | | [address] | [address] | | | | | [facility] | [place], [place] | | | | | [place], [facility] floor | [address] | | | | | [place], [place] | [phone] | | | | | [address] | | | | | | [phone] | | | +--------+ + + + [...]
--- OUTSIDE RECORDS SUMMARY | ~2020-07-16 | XMS | Encounter Summary ---
Demographics + + + | Address | [address] | | | [place] [address] | + + + | Home Phone | | + + + | Preferred Language | Unknown | + + + | Marital Status | | + + + | Amish Affiliation | 1077 | + + + | Race | White | + + + | Ethnic Group | Not or | + + + Author + + + | Author | [facility] | | | and [place] | + + + | Organization | [facility] | | [...] Team Providers + +------+ + | Care College Sports Coach Name | Role | Phone | [...] + + | 02/10/ | Hospital | [facility] | Willow Colin MD | | | 2019 | Encounter | [facility] | [address] | | | | | [address] | [address] [place], | | | | | [place] | [place] [address] | | | | | [address] | [phone] | | | | | [phone] | | | +--------+ + + + [...] You can't be awakened Date Last Reviewed: 08/13/201619994600-0138 [employer] [place] [address]. All righ ts reserved. This information is [...] you take. This includes prescription medicines, o cxa-hwk-yplongu medicines, herbs, vitamins, and other supplements. Be [...] icine to relax you. The procedure takes [id number]. It does not cause trouble breath ing. [...] Black, tarry, or bloodystools Date Last Reviewed: 04/26/201619999980-4501 [employer] [address] [place] [address], [place] [address]. All righ ts reserved. This information is [...] prescription medicines Herbs, vitamins, and other supplements Plqi-dre-iudzlfa medicines such as aspirin or ibuprofen Street [...] heart or lung disease Date Last Reviewed: 05/27/201719998808-6441 [employer] [address] [place] [address]. All righ ts reserved. This information is [...] by: Willow Colin MD, 02/10/2019 13:00 [facility]ronically signed by Willow Colin MD at 02/10 [...] + + + | [address] | [address] [place] [address] NE | [place] [address] | [phone] | | [facility] | | | [...] + | [facility] | [address] | [place] | [phone] | | [facility] | | [address] | | | - LABORATORY | | [...] performed by [facility] | | | [facility], [address] [place] [address] | | | (And Taxi Instructor Bus Trolley: Don Morrell D.O.; IA#: [id number]). | | | Diagnostician: Gely Cerna MD [...]
--- OUTSIDE RECORDS SUMMARY | ~2020-07-16 | XMS | Encounter Summary ---
Demographics + + + | Address | [address] | | | [place] [address] | + + + | Home Phone [...] Team Providers + +------+ + | Care Access Lead Name | Role | Phone | + [...] | Office | Orthopaedics at | Ghassan hSerman, | Right knee pain, | | 2018 | Visit | [address] | [address] | unspecified | | | | [address] | [place], [place] | chronicity (Primary | | | | [address] | [address] | Dx); Infection | | | | [place], [place] | [phone] | associated with | | | | [address] | | internal right knee | | | | [phone] | | prosthesis, | | | | [...] Ghassan Sherman MD - 07/14/2018 1:25 PM [facility] 06/12/18 Right TKA I&D, [...] tknee ap/laterall GHASSAN SHERMAN MD OR[facility]OPAEDICS AT [place] [address] [facility] [address] [place] [address] No orders of the defined [...]
--- OUTSIDE RECORDS SUMMARY | ~2020-07-16 | XMS | Encounter Summary ---
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
--- OUTSIDE RECORDS SUMMARY | ~2020-07-16 | XMS | Encounter Summary ---
Demographics + + + | Address | [address] | | | [place] [address] | + + + | Home Phone [...] Providers + +------+ + | Care Manager Care Name | Role | Phone | + [...] [facility] | | | | | | [facility] | | | | | | and Healing, | | | | | | Building [address], 5th | | | | | | Floor [place], [place] | | | | | | [address] | | | | | | [phone] | | | +--------+ + + + [...] Dear | | | | | | [place]: In | | | | | | [...] [address] | [place] [address] | | | DERMATOPATHOLOGY | [address] | | | + + + + + | [facility] | Mail[address] | [place] [address] | | | DERMATOPATHOLOGY | [address] | | | + + + + + documented in this encounter Visit Diagnoses Not on filedocumented in this encounter"
--- OUTSIDE RECORDS SUMMARY | ~2020-07-16 | XMS | Encounter Summary ---
Demographics + + + | Address | [address] | | | [place] [address] | + + + | Home Phone | | + + + | Preferred Language | Unknown | + + + | Marital Status | | + + + | Confucianist Affiliation | 1077 | + + + | Race | White | + + + | Ethnic Group | Not or | + + + Author + + + | Author | [facility] | | | and [place] | + + + | Organization | [facility] | | [...] Team Providers + +------+ + | Care Fireworks Assembler Name | Role | Phone | + +------+ + | Erin Forrester MD | PCP | | + +------+ + Encounter Details +--------+ + + + + | Date | Type | Department | Care Team | Description | +--------+ + + + + | 02/12/ | Orders Only | [facility] | Mikal Calix MD | | | 2018 | | NEPRHOLOGY [place] | [address] | | | | | [address] | [address] [place], [place] | | | | | [address] [place], [place] | [address] | | | | | [address] | | | | | | [phone] | | | +--------+ + + + [...]
--- OUTSIDE RECORDS SUMMARY | ~2020-07-16 | XMS | Encounter Summary ---
Demographics + + + | Address | [address] | | | [place] [address] | + + + | Home Phone [...] Team Providers + +------+ + | Care Copy And Print Associate Name | Role | Phone | [...] 2019 | | [address] | SE[address]ATOR TEND[address] | | | | | [place] | [place] | | | | | [address] | [place] | | | | | [phone] | [address] | | | | | | [phone] | | | | | | | [...] | | | | using the MDRD IDNV | | | | | | traceable [...]
--- OUTSIDE RECORDS SUMMARY | ~2020-07-16 | XMS | Encounter Summary ---
Demographics + + + | Address | [address] | | | [place] [address] | + + + | Home Phone [...] Providers + +------+ + | Care Certified Forklift Operator Name | Role | Phone | [...] | | | Loop [facility] | [place], [place] | | | | | Pavilion, 3rd floor | [address] | | | | | [place], [place] | [phone] | | | | | [address] | | | | | | [phone] | | | +--------+ + + + [...] Celia Hawthorne RN - 07/01/2018 1:36 PM [facility] check in - Transitional Care Management Note ASSESSMENT Spoke with Beth Mas, of patient who is , at [phone]. Beth stated that infusi ons of cefazolin [...] without provider involvement . CELIA HAWTHORNE RN [facility] INFECTIOUS DISEASE PPV INFECTIOUS DISEASES AT [facility] 3RD FLOOR [address] [facility] [place] [address] documented in this enc ounter Plan of Treatment Not on filedocumented as of this encounter Visit Diagnoses Not on filedocumented in this encounter"
--- OUTSIDE RECORDS SUMMARY | ~2020-07-16 | XMS | Encounter Summary ---
Demographics + + + | Address | [address] | | | [place] [address] | + + + | Home Phone [...] Team Providers + +------+ + | Care Gypsum Block Setter Name | Role | Phone | [...] 2017 | | SW Justus Hernandez | [address] | EXCHANGE MICRO x 7 | | | | Rd [facility] | [place], [place] | PATH x 2 | | | | Hospital Admitting | [address] | | | | | Desk Located on the | [phone] | | | | | 9th floor | | | | | | [place], [place] | | | | | | [address] | | | +--------+---------+ + + + [...] (s/p PCI x3, CABG x2) complicated by trauma manager erich systolic heart failure (EF 45%) due [...] excellent response. He will continue PT/OT at [facility] swing bed unit. Per orthopedic [...] I-CAPS 280-10-2 mg Cap Generic drug: antiox.mv no.94-xhqo6o-eveyogn6k-ayk-hpc Take 1 capsule by mouth once daily. [...] (Non-Steroidal Anti-Inflammatory Drug) Renal Failure Avoid per Manager Unit recommendations Sulfa (Sulfonamide Antibiotics) Rash Vital Signs [...] information for after-discharge care Discharge Destination IP [facility] . Specialty: Acute Care Hospital Contact information [address] [place] [id number] [place] Location: [facility] swing bed unit Appointments: Dr. Sherman on 07/23/18 at 10:40am. The discharge note was forwarded to the PCP for review. Discharging Physician: Ann Mahmood MD Suggested CPT: 12526 Discharge Management > 30 minute I spent more than 35 minutes vsiw-nv-uywv with the patient of which 70% was [...] | | 0 | | | | no.10-opoz9b-xjavcxl2m-kth-cpt | mouth once daily. | | | [...] negative pressure wound therapy dressing right knee [id number] Subjective: Doing ok overall. No CP/SOB. Tolerating [...] Plan to DC today to SNF in [place]. SNF can pull sutures at 2 weeks from operat kai date (June 27 is 2 weeks post op). Plan to return to Dr. Sherman' clinic 6 weeks an d also have ID clinic visit on that day. Appreciate [facility] and ID help in managing this [...] Special Concerns: None 6. Dressings/Drains: Drain pulled. TION to remain on until battery falls off. 7. Dispo/Discharge: Dc today. 8. Follow-up: Please call the clinic to make a follow up appointment in approximately 6 we eks with ORTHO TRAUMA & FRACTURE, . AP and lateral of R knee at that time. Elias Soriano MD [facility] Department of Orthopaedics and Rehabilitation PGY-1 Pager [phone] Ann Vang MD - 4:42 PM PDT [...] (s/p PCI x3, CABG x2) complicated by trauma manager erich systolic heart failure (EF 45%) due [...] mg daily Dispo: Anticipate discharge tomorrow to [facility] bed unit if renal function is s table Code status: Full code Diet: Regular diet Prophy: warfarin and heparin Ann Mahmood MD Energy Raterassisted living coordinator Clinical Hospitalist and Medicine Teaching Services [facility] Pager [phone] Suggested CPT: 85031 Subsequent Visit Detailed/High complexity 35 min I spent 37 minutes snne-pw-lity with the patient of which 78% was [...] negative pressure wound therapy dressing right knee [id number] Subjective: Doing ok overall. No CP/SOB. Tolerating [...] to home as t ransporting back to [place] may present the patient and family undo hardship. 6. Dressings/Drains: Pulled yesterday? 7. Dispo/Discharge: Anticipate discharge to SNF in next 1-3 days if all criteria met. 8. Follow-up: Please call the clinic to make a follow up appointment in approximately 2 wee ks with ORTHO TRAUMA & FRACTURE, . AP and lateral of R knee at that time. Elias Soriano MD [facility] [place] Department of Orthopaedics and Rehabilitation PGY-1 Pager [phone] atel, Tanvir - 06/16/2018 8:20 AM PDT [...] three and a half hours away from [place]. At this time, we are unsur e of his ability to follow up with an OPAT clinic or if there is a provider near [place], where the patient resides. 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 This patient was staffed [facility] Dr. Villalobos, who agrees with the above assessment and plan unless otherwise documented. Tanvir Ayala, [facility] P SUBJECTIVE Interval Events: No acute events overnight S: patient reports he is feeling well this morning. States he was able to meet with a case technician and had decided to go to a [...] Dona Mercado MD Division of Hospital Medicine [facility] Pager [phone] I spent more than 35 minutes dcvd-rv-lkui with the patient of which greater than [...] negative pressure wound therapy dressing right knee [id number] Subjective: Doing ok overall, not too much pain in right knee. Looking forward to getting quarter backer to home, "My wants to get [...] to home as t ransporting back to [place] may present the patient and family undo [...] time. JATIN Dent Orthopaedic Trauma Surgery Pager [phone] Stephan Aguirre MD - 06/14/2018 8:59 AM [...] Dona Mercado MD Division of Hospital Medicine [facility] Pager [phone] I spent more than 35 minutes yhta-lf-kybd with the patient of which greater than [...] negative pressure wound therapy dressing right knee [id number] Subjective: Pain improving in R knee. Objective: [...] at that time. SEBAS PLEITEZ MD Pager [phone] tephan Mercado M D - 06/13/2018 9:51 [...] Andrichard Mercado MD Division of Hospital Medicine [facility] Pager [phone] I spent more than 35 minutes ltsy-ud-cleu with the patient of which greater than [...] negative pressure wound therapy dressing right knee [id number] Subjective: Painful in R knee today, but [...] at that time. SEBAS PLEITEZ MD Pager [phone] Stephan Aguirre M D - 06/12/2018 1:24 [...] Andrichard Mercado MD Division of Hospital Medicine [facility] Pager [phone] I spent more than 35 minutes fzes-rw-bdkz with the patient of which greater than [...] total arthroplasty. Nika martinez was referred to [facility] for joint revision, and presented emergently to [facility] ED from [facility] ([place], [place]). Prior to presentation patient states that [...] IV (baseline cr 1.8-2.0), has had prior MO, no CVA. For his right lower extremity [...] mild distal inferior-apical ischemia, LVEF 53%. -10/2015 [facility] with 90% ostial first diagonal, 85% ostial second diagonal, occluded stent of proximal RCA with left to right coronary collaterals, Patent SVG to LAD Ischemic Cardiomyopathy c/b Chronic Systolic Heart Failure and Diastolic Heart Failure -10/2015 [facility] with EF 45% and inferiobasal [...] po daily Carvedilol 12.5mg po daily -Y Bison-3 fatty acid 1,200mg po bid Acetaminophen-codeine po [...] the Social Hx as appropriate. Lives in [place], [place], Greater than 40 PYH tobacco use, [...] 2012 Total Knee Replacement who presents to [facility] 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 [...] on going soft tisuse infection. -would consult board of directors for enhanced nutrition in post-operative period Non-Insulin [...] as unclear why patient was placed on fci anticoagulation after prior provoked DVT. Dean Ugarte MD Clinical Hospitalist Services [facility] Pager [phone] 06/11/2018 10:44 PM [facility] DEPARTMENT: Hosp ([facility]) - [phone] Place of Service: [facility] [id number] Date of Service: 07/25/[address] [facility] [id number] Modifiers:GC Resident Involved: No Service: PRIMARY HOSPITALIST Suggested CPT: 01611 Initial Visit Comp/High Complexity 70 min I [...] Antibiotics and Frequent lab draws Procedure location: Unit:[facility] Room: 14 Providers: Attending name: Attending physically present: No PICC Nurse name: Frances Fair RN BSN VAT Assisted by Christina March RN BSN VAT Pre-Procedure Consent: written consent obtained Consent given by: Patient Patient identity confirmed per protocol: Yes Team Pause: Immediatly prior to the procedure a pause per protocol was called. A pause veri fies correct patient, procedure, equipment, behaviour support teacher and site/side marked as required. CLABSI Prevention [...] area Basilic vein. Cat heter lot number: [id number] with a length of 55 cm was [...] Service: 08/01/2015 Attending Surgeon: Ghassan Sherman MD Public Utilities Sales Representative(s): mesfin thompson MD Preoperative Diagnosis: 1. right total knee prosthetic joint infection. Postoperative Diagnosis: same Procedures Performed: 1. Right knee arthrotomy with drainage for infection and polyethylene exchange 2. Application TINO disposible negative pressure wound therapy dressing right knee [id number] Anesthesia: General endotracheal anesthesia. Implants: excahgned alisha triathalon poly size 15, 13mm EBL: 50 Complications: None Specimens: 6 cultures, 1 path Indication For Procedure: Solo Alves was transferred to [facility] for sepsis after previosuly having been treated with a right total knee. He ws medically unstable and transferred to [facility] medical service. An apsirate was positive. [...] Patricia wrap. He was then awoken from [facility] and transported back to the postanesthesia [...] as it stands. Ghassan Sherman MD, MPH Big Data Solutions Architect, Dept. of Orthopaedics [address] [place] [address] [email or web address] docu mented in this encounter Consult Notes [...] patient will need to follow up at [facility] on July 23 with orthopedics. During t hat time,we will cooridnate so that he may follow up with ID/OPAT in regards to his treatmen t. He will be discharged to [facility] to receive inpatient therapy and OPAT. 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 at [facility]. If patient is discharged fr [...] the primary team. This patient was staffed cook hospital Dr. Villalobos, who agrees with the above assessment and plan unless otherwise documented. Tanvir Ayala, [facility] P SUBJECTIVE Interval Events: No [...] to be continued via OPAT at [facility] Microbiology Data: Source Date Results Tissue [...] tablet allopurinol 300 mg oral tablet antiox.mv no.65-dvwk4z-gzxmqcb3t-tyr-ksm (I-CAPS) 280-10-2 mg oral capsule carvedilol 12.5 [...] Anticoagulation Clinic/Provider: New PCP Dr. Don Estrada ([phone]) Date INR Warfarin Dose 06/17/2018 1.78 2.5 [...] make recommendations. Please page clinical ph armacist (#[phone]) or call central inpatient pharmacy ([phone]) with questions. Rashard Jacob Pharm. D. Candidate Associated attestation - Mary Wade [facility] - 06/17/2018 11:14 AM PDT--I have reviewed the note written by pharmacy consultant Rashard Jacob and I agree with the content and his plan for warfarin on this patient. Thank you, Mary Mauro [facility]. Pager [phone] Wade Mary [facility] - [...] Anticoagulation Clinic/Provider: new PCP Dr. Don Estrada ([phone]) Date INR Warfarin Dose 06/16/2018 1.51 2.5mg [...] make recommendations. Please page clinical ph armacist (#[phone]) or call central inpatient pharmacy ([phone]) with questions. Thank you for consult, Mary Wade [facility]. Pager [phone] Trish Blankenship MD - 10:46 AM PDTAssociated Order(s): IP CONSULT TO INFECTIOUS DISEASESFormatting of thi s note might be different from the original. [facility] Infectious Diseases OPAT Referral for Discharge Planning Team B: OPAT RN Jaye Young, Office: [phone], Pager: [phone] ID Diagnosis: PJI Antibiotic agent and dosing: [...] (pt has an ortho appointment 10:40 ) Sample Cutter: For all patients requiring IV antibiotic therapy, please route your OPAT [place] n of Care Note (.CMOPAT) to [facility] "p OPAT/Infectious Diseases clinic" Pool at [...] and make recommendations. Please page clinical pharmacist (#[phone]) or call central inpatient pharmacy ([phone]) with questions. Subjective/Objective: Allergies: Nsaids (non-steroidal anti-inflammatory [...] by his new PCP Don Estrada MD ([phone]). The patient reports Dr Estrada wanted him [...] Bell D. 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 We will discuss [facility] OPAT vs outside providers. Formalized recs pending Recommendations were communicated directly to the primary team. This patient was staffed cook hospital Dr. Villalobos, who agrees with the [...] arthritis. The patient was then transferred from [place] to [facility] for fu rther evaluation. While here, [...] 300 mg by mouth once daily. antiox. no.00-vhpi7z-rjhugwn5s-wpd-cze (I-CAPS) 280-10-2 mg oral capsule Take 1 [...] (Non-Steroidal Anti-Inflammatory Drug) Renal Failure Avoid per Manager Unit recommendations Sulfa (Sulfonamide Antibiotics) Rash Social History [...] care. Ishaan Villalobos MD Division of Infectious DiseasesAlicia, Ramon, PharmD - 06/14/2018 7:36 PM PDT [...] lab draw. - Please page clinical pharmacist (#[phone]) or call central inpatient pharmacy ([phone]) wit h questions. Subjective/Objective: Júnior Mas, a [...] CULTURE, TISSUE-PROSTHETIC JOINT INFECTION AER AND MARIELOS [[id number]] (Abnormal) KP LAB Collec dilcia: 06/12/18 1354 Lab Status: Preliminary result Specimen: Tissue from Knee - right Updated: 06/14/18 1344 CULTURE RESULT LAB Staphylococcus epidermidis (A) Ref Range: Narrative: Culture Report: Staphylococcus epidermidis Gram Stain: No squamous epithelial cells Rare polymorphonuclear cells No organisms seen Thank you, Ramon Mercado, PharmD, [facility] Clinical Pharmacist alickn, Torey Adame [...] and make recommendations. Please page clinical pharmacist (#[phone]) or call central inpatient pharmacy ([phone]) with questions. Subjective/Objective: Júnior Mas, a 78 [...] by his new PCP Don Estrada MD ([phone]). The patient reports Dr Estrada wanted him [...] you for the consult, Evgeny Akers PharmD, [facility] Pager [phone] Evgeny Robles PharmD - 06/13/2018 8:41 AM [...] on stable regimen. Please page clinical pharmacist (#[phone]) or call central inpatient pharmacy ([phone]) with q uestions. Subjective/Objective: Indication: infectious disorder of joint Therapy start date: 06/12/18 Anticipated duration: TBD Goal trough: ~15 mg/L Urine output: unavailable for most of the past 24 hours Renal function: stable , current SCr 1.66 (Baseline SCr 1.6-1.8) Actual body weight: Weight: 86.7 kg (191 lb 1.6 oz) (06/13/18 8738) Pertinent cultures/sensitivities: 06/12/18 blood and tissue cultures - in process Thank you for the consult, Evgeny Akers PharmD, [facility] Pager [phone] Harley Echols MD - 06/11/2018 7:27 PM PDT [facility] [place] DEPARTMENT OF ORTHOPAEDICS & REHABILITATION HISTORY & PHYSICAL EXAMINATION Patient: Júnior Mas Encounter Date: 06/11/2018 Attending Physician: Maral Leon MD HISTORY OF PRESENT ILLNESS: Júnior Mas is a 78 year old male with CHF, gout, CAD with prior MO, DMII, HTN who presents with 2 weeks of progressive right knee pain, stiffness, fevers and malaise. He had his tota l knee arthroplasty done in [address] Hurst at [facility] for advance d DJD. He's had no problems with his knee replacement until 2 weeks ago. Denies any trauma, recent infection, colonoscopy or dental procedure. He has chronic venous stasis with blister formation on the RLE. He denies any pain or complaints elsewhere. He presents as a transfer from an [facility] hospital where there was a concern for a septic prost hetic knee. ESR was 112, CRP 159 and WBC count of 8. An arthrocentesis was performed today w hich demonstrated 78K WBC (95% PMN), 90K RBCs, no crystal and no organisms seen with culture s pending. He was transferred to [facility] for further management of a septic prosthetic knee. Implants: Ava Triathlon Total Knee System 1. Size 4 [...] up appointment in approximately 2 weeks w [facility] ORTHO TRAUMA & FRACTURE, The orthopaedics consult pager is #[phone], please call with questions. Harley Weaver MD Resident Department of Orthopaedics Pager [phone] [facility] [place] Department of Orthopaedics & Rehabilitation [phone] [facility] Mail Code: OP31 [facility] [address] Associated attestation - Ghassan Sherman MD - [...] call me for questions. GHASSAN SHERMAN MD [facility] [address] [address]/[id number] [place] [address] documented in this encounter ED Notes Carla [...] (H) 0.70 - 1.30 mg/dL EGFR - RWANDAN 39 (L) >60 mL/min EGFR NON -RWANDAN 32 (L) >60 mL/min SODIUM, PLASMA (LAB) [...] Seen by Dr. René Yen (orthopedics) in [place] 06/09 with the following labs. 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 Laboratory and imaging results including ESR, CRP were reviewed and interpreted, and notabl e for the following: - significantly elevated ESR and CRP - arthrocentesis at [place] with 79,000 WBCs The patient received the following in the emergency department (including medications, inte rventions, consultations, and reassessments): - orthopedics consultation, plan for [place] tomorrow Given this, patient required admission for further care. We spoke to the [facility] ist service, who accepted patient to [...] Information: Patient discharging to swing bed at [facility] in [facility]. Reviewed DC to SNF AVS with patient and family, all questions answered, reinforced fo llow up appointments per AVS. PICC line in RUE with dressing CDI at discharge. TINO dressing CDI with green light flashing at discharge. Telephone report given to FLY Vanegas at [facility] at 1125. Transportation provided by family in private vehicle. Patient dischar ged in stable condition with all belongings. Discharge Nurse: PADMINI MAGAÑA RN andoff - Galian Varela RN - 06/16/2018 11:09 PM PDTNursing Handoff Patient Daily Goal: rest (06/16/18 0945) Patient Specific Preferences: When asked if pt moves while he is in a recliner, he states " no, once I'm there I stay", education provided on importance of repositioning for pressure i njury prevention even in recliner chair. (06/15/18 0957) [facility] IP NURSE HANDOFF: [facility] [...] njury prevention even in recliner chair. (06/15/18 5216) [facility] IP NURSE HANDOFF: [facility] course [...] Met Case Management OPAT Plan of Care: [facility] hospital discharge date: 06/17/2018 This patient will be followed for all post hospital OPAT care needs by: [facility] OPAT/Infectiou s Diseases Clinic, ; IV antibiotic orders were provided to: Other vendor facility, Name: [facility] Swi ng Bed, , , Attn: [...] throughout session other than pt and therapist: cardiac rehabilitation program director Current unit: 9k Brief Hospital Course:Júnior Mas [...] with FWW: minimum assist, 15 feet with cardiac rehabilitation program director stand by assist and follow ing with wheelchair. Chair to chair transfer front wheeled walker and minimum assist Pt left up in recliner chair, call light/urinal and belongings all in reach. [facility] BASIC MOBILITY Difficulty turning over in [...] to do/total assistance - Total/Dependen t Assist [facility] Basic Mobility Total Score 14 Interpretation of [facility] Short Form - Basic Mobility: CMS [...] to be determined . Umm Joy, BRICE [id number] andoff - Emily Covarrubias RN - 06/16/2018 [...] njury prevention even in recliner chair. (06/15/18 0916) [facility] IP NURSE HANDOFF: [facility] course [...] As evidenced by: Poor intake tonight from 3296-6952 despite encouragement. He states that his water [...] njury prevention even in recliner chair. (06/15/18 0902) [facility] IP NURSE HANDOFF: [facility] [...] throughout session other than pt and therapist: cardiac rehabilitation program director and student observer Current unit: 9k Brief [...] cell phone and water all in reach. [facility] BASIC MOBILITY Difficulty turning over in [...] to do/total assistance - Total/Dependen t Assist [facility] Basic Mobility Total Score 9 Interpretation of [facility] Short Form - Basic Mobility: CMS [...] Equipment recommendations: to be determined BRICE Blount [id number] andoff - Maria Dolores Gurrola RN - [...] njury prevention even in recliner chair. (06/15/18 2283) [facility] IP NURSE HANDOFF: [facility] course [...] at EOB finishing breakfast with family at [facility]. Recliner found and placed in [...] nutrient distribution type or amount Nutrition Assessment: hot mill observer received. Pt does not like food here, [...] intake Following, Ivana Mendez, MS, RD, LD, [facility] Pager #: [phone] Comments: Júnior Mas is a 78 y.o. [...] 2012 Total Knee Replacement who presents to [facility] 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 IP NURSE HANDOFF: [facility] [...] RN - 06/14/2018 5:[address] [facility] IP NURSE HANDOFF: [facility] course [...] encourage meals. Monitor UOP- no ouput from 1346-7324. [facility] notified- BMS ordered. encourage fluids. MOBILITY: [...] PM PDT Physical Therapy Evaluation and Treatment [id number] [facility] Day: 3 Date of : 1940 [...] going down ramp) Vision/Hearing: hearing aids (very KOI; states he refuses hearing aids) Patient / Family Goal: patient will not state; patient : For patient to return home. Language: Japanese. Barriers: Very KOI, not fully attentive. Pain: "lots"; refuses to [...] assist after focus on m idline. PT, DIRECTOR OF PARTNERSHIPS and patient encourage patient to get up to a chair, with assistance, patient r efused 4 times. Outcome Measure(s): 5 Time Sit to Stand: unable. >15 seconds predicts recurrent fallers [facility] BASIC MOBILITY Difficulty turning over in [...] to do/total assistance - Total/Dependen t Assist [facility] Basic Mobility Total Score 9 Interpretation of [facility] Short Form - Basic Mobility: CMS [...] underestimate Ended session: Patient supine in bed. DIRECTOR OF PARTNERSHIPS attending to patient. ASSESSMENT: Patient presents s/p [...] RN - 06/14/2018 2:[address] [facility] IP NURSE HANDOFF: [facility] [...] RN - 06/13/2018 1:[address] [facility] IP NURSE HANDOFF: [facility] hospital course [...] information: see anesthesia record Functional Epidural: No STALLION MANAGER: No Respiratory: RR: 17, O2 Sat: 98 %, O2 Delivery: Nasal cannula Breath Sounds: WDL Except (SEUN - not diagnosed) TAYLOR: LLL: RUL: RLL: SEUN No Comment: none Cardiac: BP: 113/47 HR: 94 GI: Nausea/Vomiting Status: No Signs/Symptoms: Interventions: Assessment: Comments: toleratingPO : Last void: at 1900 Contact Name: Beth Contact Number: [phone] Family contacted: Yes Comment:updated family Belongings:none in PACU [facility] - Rahel Shaw RN - 06/12/2018 [...] in the provider note. Sandra Valle MD [facility] ransfer Note - Arnie Busby ANP - 06/11/2018 3:19 PM PDT Call from Dr. Eric Yen, [place] [facility] Pt with hx of CHF with significant fluid retention, right knee replacement, chronic leg ulc ers has infected total knee. Presented to clinic today with right knee swelling and pain. Right knee aspirate today: 79k white cells Markedly elevated CRP and sed rate Temp 99.4, vitals stable and normal Spoke with [facility] orthopedic surgeon Dr. Leon who advised transfer to [facility] ED Pt coming now via POV [facility] Rita Sandhu - 06/11/2018 3:19 PM PDTPt with post procedure infection, R total knee. Connected ref with ROCAEL Sanders. [facility] Rita Barker - 06/11/2018 2:09 PM PDTRef [facility]o Dr. Maral Leon who advised PT to come to [facility] ED. Advised Dr. Yen to [...] + + + | [facility] | [address] | [place], [place] | | | OPHELIA LOZADA OF CARE | [address] | [address] | | | TESTS | | | [...] | + + + + + | [facility] | [address] | [place] [address] | | | SERVICES, CORE | DANI [...] | | | LABORATORY | | | RWANDAN | | | SERVICES, | | | [...] | + + + + + | [facility] | [address] | [place] [address] | | | SERVICES, CORE | DANI [...] [facility] | [address] | [place], [place] | | | OPHELIA LOZADA OF FUAD | [address] | [address] | | | TESTS | | | [...] [facility] | [address] | [place], [place] | | | KIERRA GLEN JEAN OF [facility] | [address] | [address] | | | TESTS | | | | + + + + + X-RAY PORTABLE CHEST 1 VIEW (06/16/2018 4:29 PM PDT) + + | Specimen | + + | | + + + + + | Narrative | Performed At | + + + | EXAM: MA CHEST 1 VIEW HISTORY: PICC placement. Prosthetic [...] Interface - 06/16/2018 4:44 PM PDT EXAM: MA CHEST 1 | | VIEW HISTORY: PICC [...] draws Procedure location: | | | Unit:9 [facility] Room: 14 Providers: Attending name: Attending [...] | | | correct patient, procedure, equipment, behaviour support teacher and site/side | | | marked as [...] | area Basilic vein. Catheter lot number: [id number] with a length of 55 | | [...] [facility] | [address] | [place], [place] | | | KIERRA POINT OF CARE | [address] | [address] | | | TESTS | | | [...] | + + + + + | [facility] | [address] [facility] | [place] [address] | | | SERVICES, CORE | DANI [...] | | | LABORATORY | | | RWANDAN | | | SERVICES, | | | [...] | + + + + + | [facility] | [address] | [place] [address] | | | SERVICES, CORE | DANI [...] [facility] | [address] | [place], [place] | | | OPHELIA LOZADA OF CARE | [address] | [address] | | | TESTS | | | [...] DARSHANA | [address] | [place], [place] | | | OPHELIA LOZADA OF CARE | [address] | [address] | | | TESTS | | | [...] (H) | 70 - 99 mg/dL | [facility] - | | | GLUCOSE, | | | [facility] | | | POC | | | POHELIA LOZADA | | | | | | [...] [facility] | [address] | [place], [place] | | | OPHELIA LOZADA OF CARE | [address] | [address] | | | TESTS | | | [...] + + + + | [facility] | [address] [facility] | [place] [address] | | | SERVICES, CORE | DANI [...] | | | LABORATORY | | | RWANDAN | | | SERVICES, | | | [...] + + + + | [facility] Diligent Board Member Services | [address] [facility] | [place] [address] | | | SERVICES, CORE | DANI [...] [facility] | [address] | [place] [address] | | | SERVICES, CORE | PARK [...] [facility] | [address] | [place] [address] | | | SERVICES, CORE | PARK [...] | + + + + + | [facility] | [address] [facility] | [place] [address] | | | SERVICES, CORE | PARK [...] + + | [facility] | [address] | [place] [address] | | | KAREEM FINCH | DANI [...] [facility] | [address] | [place], [place] | | | KIERRA POINT OF CARE | [facility] | [address] | | | TESTS | | | [...] | | | LABORATORY | | | RWANDAN | | | SERVICES, | | | [...] is appropriate. | LABORATORY | | Page [phone] or call [phone] with questions. Thank you. GFR is | [...] + + + + | [facility] Diligent [facility] Member Services | [address] | [place] [address] | | | SERVICES, CORE | DANI [...] | [facility] | [address] [facility] | [place] [address] | | | SERVICES, KAREEM | DANI [...] is appropriate. | LABORATORY | | Page [phone] or call [phone] with questions. Thank you. | SERVICES, CORE | + + + + + + + + | Performing | Address | City/State/Zipcode | Phone Number | | Organization | | | | + + + + + | [facility] | [address] | [place] [address] | | | SERVICES, KAREEM | [address] [...] [facility] | [address] | [place], [place] | | | OPHELIA LOZADA OF CARE | [address] | [address] | | | TESTS | | | [...] DARSHANA | [address] | [place], [place] | | | [place]INT OF [facility] | [address] | [address] | | | TESTS | | | [...] + + + + | [facility] | [address] [facility] | [place] [address] | | | SERVICES, CORE | DANI [...] | | | LABORATORY | | | RWANDAN | | | SERVICES, | | | [...] | + + + + + | [facility] | [address] | [place] [address] | | | KAREEM FINCH | DANI [...] [facility] | [address] | [place], [place] | | | KIERRA POINT OF CARE | [address] | [address] | | | TESTS | | | [...] [facility] | [address] | [place], [place] | | | OPHELIA LOZADA OF [facility] | [address] | [address] | | | TESTS | | | [...] [facility] | [address] | [place], [place] | | | OPHELIA LOZADA OF CARE | [address] | [address] | | | TESTS | | | [...] + + | ECG | Borderline prolonged MA | | [facility] DE[facility] | | | [...] + + + + | [facility] DEPT OF | [address] | [place], [place] | | | CARDIOLOGY | [address] | [address] | | + + + + + [...] [facility] | [address] | [place], [place] | | | OPHELIA LOZADA OF CARE | [facility] | [address] | | | TESTS | | | [...] | + + + + + | [facility] | [address] [facility] | [place] [address] | | | SERVICES, CORE | [address]ARK [...] | | | LABORATORY | | | RWANDAN | | | SERVICES, | | | [...] + + + + | [facility] Diligent Board Member Services | [address] | [place] [address] | | | SERVICES, CORE | PARK [...] + + + + | [facility] | [address] | [place] [address] | | | SERVICES, CORE | DANI [...] | | | LABORATORY | | | RWANDAN | | | SERVICES, | | | [...] | + + + + + | [facility] | [address] | [place] [address] | | | SERVICES, CORE | PARK [...] [facility] | [address] | [place] [address] | | | SERVICES, | [address] [...] + + + + | [facility] | [address] | [place] [address] | | | SERVICES, | [address] [...] + + + + | [facility] | [address] | [place] [address] | | | KAREEM FINCH | [address] [...] [facility] | [address] | [place] [address] | | | SERVICES, | [address] [...] + + + + | [facility] | [address] | [place] [address] | | | SERVICES, CORE | DANI [...] (H) | 70 - 99 mg/dL | [facility] - | | | GLUCOSE, | [...] [facility] | [address] | [place], [place] | | | KIERRA POINT OF CARE | [address] | [address] | | | TESTS | | | [...] | | | LABORATORY | | | RWANDAN | | | SERVICES, | | | [...] | + + + + + | [facility] | [address] | [place] [address] | | | KAREEM FINCH | DANI [...] + + + + | [facility] | [address] | [place] [address] | | | SERVICES, CORE | DANI [...] (H) | 70 - 99 mg/dL | [facility] - | | | GLUCOSE, | [...] [facility] | [address] | [place], [place] | | | OPHELIA LOZADA OF [facility] | [address] | [address] | | | TESTS | | | | + + + + + PROCEDURE NOTE (06/12/2018 2:57 PM PDT) + + + | Narrative | Performed At | + + + | Ghassan Sherman MD 06/17/2018 2:15 PM Date of Service: | | | 08/01/2015 Attending Surgeon: Ghassan Sherman MD | | | Public Utilities Sales Representative(s): mesfin thompson MD Preoperative Diagnosis: 1. 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 Postoperative Diagnosis: | | | same Procedures Performed: 1. Right knee arthrotomy with | | | drainage for infection and polyethylene exchange 2. Application | | | TINO disposible negative pressure wound therapy dressing right knee | | | [id number] Anesthesia: General endotracheal anesthesia. | | | Implants: excahgned alisha triathalon poly size 15, 13mm EBL: 50 | | | Complications: None Specimens: 6 cultures, 1 path Indication | | | For Procedure: Solo Alves was transferred to [facility] for sepsis | | | after [...] | | stands. Ghassan Sherman MD, MPH Big Data Solutions Architect, Dept. of | | | Orthopaedics [place] [address] [address] | | | Maricel Ar[address]aga. [address] [place] [address] | | | [email or web address] | | + + + CAPILLARY BLOOD [...] [facility] | [address] | [place], [place] | | | OPHELIA LOZADA OF CARE | [address] | [address] | | | TESTS | | | [...] [facility] | [address] | [place], [place] | | | OPHELIA LOZADA OF [facility] | [address] | [address] | | | TESTS | | | [...] - | | | | | | [place] | | + + + + + [...] Propionibacterium due to growth of other | [email or web address] | | organsims. Gram Stain: No squamous epithelial cells Moderate | | | polymorphonuclear cells No organisms seen | | + + + + + + + + | Performing | Address | City/State/Zipcode | Phone Number | | Organization | | | | + + + + + | [facility] | [address] | [place] [address] | | | [place] | | | [...] + | [facility] | [address] | [place] [address] | | | [place] | | | [...] + | [facility] | [address] | [place] [address] | | | [place] | | | [...] + | [facility] | [address] | [place] [address] | | | [place] | | | [...] | + + + + + | [facility] | [address] | [place] [address] | | | [place] | | | [...] | | | | | | number [phone].[id number]. Knee, | | | | | | [...] | + + + + + | [facility] | [address] | [place] [address] | | | PATHOLOGY | [address] [...] - | | | | | | [place] | | + + + + + [...] + | [facility] | [address] | [place] [address] | | | [place] | | | | + + + [...] | | POC | | | OPHELIA LZOADA | | | | | | OF [...] [facility] | [address] | [place], [place] | | | OPHELIA LOZADA OF CARE | [facility] | [address] | | | TESTS | | | [...] [facility] | [address] | [place], [place] | | | OPHELIA LOZADA OF CARE | [facility] | [address] | | | TESTS | | | [...] [facility] | [address] | [place], [place] | | | KIERRA POINT OF CARE | [address] | [address] | | | TESTS | | | [...] + + + + | [facility] | [address] | [place] [address] | | | SERVICES, CORE | DANI [...] [facility] | [address] | [place] [address] | | | STEF, CORE | PARK [...] + + + + | [facility] | [address] | [place] [address] | | | SERVICES, CORE | PARK [...] | + + + + + | [facility] | [address] | [place] [address] | | | SERVICES, CORE | DANI [...] | + + + + + | [facility] | [address] | [place] [address] | | | STEF | DANI ALEXIS [...] | + + + + + | [facility] | [address] | [place] [address] | | | KAREEM FINCH | DANI [...] | | | LABORATORY | | | RWANDAN | | | SERVICES, | | | [...] the MDRD equation recommended by the | [facility] | | National Kidney Disease Education Program. [...] [facility] | [address] | [place] [address] | | | SERVICES, CORE | DANI [...] 36.5 (H) | 26.0 - 36.0 | [facility] | | | | | seconds [...] | + + + + + | [facility] | [address] | [place] [address] | | | SERVICES, CORE | [address] [...] (H) | 0.90 - 1.20 INR | [facility] | | | | | | LABORATORY [...] [facility] | [address] | [place] [address] | | | SERVICES, CORE | [address]ARK [...] [facility] | [address] | [place] [address] | | | SERVICES, CORE | PARK [...] [facility] | [address] | [place] [address] | | | SERVICES, KAREEM | [address] | | | + + + + + ED INFORMATION EXCHANGE (06/11/2018 6:04 PM PDT) + + | Specimen | + + | | + + + + + | Narrative | Performed At | + + + | [id number] This patient has registered at the [place] | [facility] | | [facility] Emergency Department For more | MEDICAL | | information visit: | TECHNOLOGIES | | [email or web address] | | | 35ffec Security Events No [...] Chief Complaint Aug | | | 2017 [facility] [place] Emergency | | | Emergency 10,800. REF Recent Inpatient Visit | | | Summary No recorded inpatient visits. E.D. Visit Count (12 mo.) | | | Facility Visits [facility] 1 Total 1 | | [...] | | facilities for additional information. 2018 [facility] | | | [facility] - [place], [place] - | | | [email or web address] | | + + + + + | Procedure Note | + + | Service Account, Rtf Results Inbound - 06/11/2018 6:06 PM PDT Formatting of this | | note might be different from the original.DANIEL?NOTIFICATION?06/11/2018 18:04?MAXWELL | | JÚNIOR? patient has registered at the [facility] | | [place] Emergency Department For more information visit: | | [email or web address] | | EventsNo recent Security Events currently on fileED Care GuidelinesThere are currently | | no ED Care Guidelines in DANIEL for this patient. Please check your facility's medical | | records system.Recent Emergency Department Visit SummaryAdmit Date Facility [facility] State | | Type Major Type Diagnoses or Chief Complaint Jun 11, 2018 [facility] | | [facility] Emergency Emergency 10,800. REF Recent Inpatient Visit | | SummaryNo recorded inpatient visits. E.D. Visit Count (12 mo.)Facility Visits [place] | | [facility] 1 Total 1 Note: Visits indicate [...] aforementioned facilities for additional information. ? 2018 [facility] | | [facility], [place] - [email or web address] | |Facility Visits | |[facility] 1 | |Total 1 | [...] facilities for additional information. | |? 2018 [employer] - [place], [place] - [email or web address] | + + + + + + + | Performing | Address | City/State/Zipcode | Phone Number | | Organization | | | | + + + + + | [facility] | [address] | [place], [place] | [phone] | | TECHNOLOGIES | [address] | [address] | | + + + + + [...] g, oral, NEEDED, Starting | | | [facility] 06/11/18 at 2306, Until Wed | [...]
--- OUTSIDE RECORDS SUMMARY | ~2020-07-16 | XMS | Encounter Summary ---
Demographics + + + | Address | [address] | | | [place] [address] | + + + | Home Phone [...] Team Providers + +------+ + | Care Quality Associate Name | Role | Phone | + +------+ + | Erin Forrester MD | PCP | | + +------+ + Encounter Details +--------+ + + + + | Date | Type | Department | Care Team | Description | +--------+ + + + + | 06/08/ | Orders Only | [facility] | Conversion | | | 2019 | | NEPRHOLOGY [place] | Transaction, | | | | | [address] | Provider Unknown | | | | | [address] [place] | [phone] | | | | | [address] | | | | | | [phone] | | | +--------+ + + + [...] | | | LAB | | | Indonesian | | | | | + + [...]
--- OUTSIDE RECORDS SUMMARY | ~2020-07-16 | XMS | Clinical Summary ---
Demographics + + + | Address | [address] | | | [place] [address] | + + + | Home Phone [...] Providers + +------+ + | Care Diesel Truck Mechanic Name | Role | Phone | + +------+ + | Gilberto Estrada MD | PCP | | + +------+ + Source Comments [facility] is fully live on both [facility] and [facility] InPatient.[facility] Allergies + + + + + + | Active Allergy | Reactions | Severity | Noted | Comments | | | | | Date | | + + + + + + | Nsaids | Renal Failure | High | 06/14/20 | Avoid per | | (Non-Steroidal | | | 18 | Wool Grower | | Anti-Inflammatory | | | | [...] 0 | | | Activ | | no.05-[id number]-[id number]-zhb-nqb | mouth once daily. 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 to | 06/11/2018 | [...] Right: | MARIALUISA | | 11/26/ | [id number] | | 13mm Implanted: Qty: 1 on | | Knee | | | 2019 | -513 / | | 06/12/2018 by Sandoval Hyde | | | | | | | | MD Leanne at [facility] REV | | | | | [...] + +--------+ | MEDICARE | MEDICA | [id number] | 01/26/20 | [phone] | [address] | [employer]ica | | | RE A & | | 15-Pre | 1 | [phone] | re | | | B | | sent | | [place] | | | | | | | | [phone] | | + +--------+ +--------+ + +--------+ | COMMERCIAL GROUP | COMMER | [id number] | 10/27/19 | | | Indemn | [...] Person | Self | [birth year] | [address] | | | al/Fam | | 1940 | [phone] | [place] [address] | | | afshan | | | [...]
--- OUTSIDE RECORDS SUMMARY | ~2020-07-16 | XMS | Encounter Summary ---
Demographics + + + | Address | [address] | | | [place] [address] | + + + | Home Phone [...] Providers + +------+ + | Care Garment Examiner Name | Role | Phone | [...] [facility] | | | | | | [facility] | | | | | | and Healing, | | | | | | Building [address]th | | | | | | Floor [place], [place] | | | | | | [address] | | | | | | [phone] | | | +--------+ + + + [...] punch | | | | | | tbtaxvb-qndt-bui skin, | | | | | | [...] [facility] | [address]code [address] | [place] | | | DERMATOPATHOLOGY | [address] | | | + + + + + | [facility] | Mailcode [address] | [place] [address] | | | DERMATOPATHOLOGY | [address] | | | + + + + + documented in this encounter Visit Diagnoses + + | Diagnosis | + + | Other specified dermatitis | + + documented in this encounter
--- OUTSIDE RECORDS SUMMARY | ~2020-07-16 | XMS | Encounter Summary ---
Demographics + + + | Address | [address] | | | [place] [address] | + + + | Home Phone [...] Team Providers + +------+ + | Care Pile Driving Nozzleman Name | Role | Phone | [...] | | | | | [address] | [place] | | | | | [place] | [address] | | | | | [address] | | | | | | [phone] | | | +--------+ + + + [...] [address] | | eral | Hand; hych-ofr-rmikgd catheter | Fred Mendoza RN | Fred [...] EVALUATION Duane Mas 77 y.o. male 1940 [id number] Procedure(s) EGD with Dilation (N/A Mouth) Cooperates? [...] by Ld Corado MD 07/31/2017 12:[address] [facility] Ld Corado MD at 02/2017 12:45 PM PDTAnesthesia Preprocedure Evaluation - Ld Corado MD - 07/30/2017 11: 41 AM PDT ANESTHESIA PREANESTHESIA EVALUATION Duane Mas 77 y.o. male 1940 [id number] Procedure(s): EGD with Dilation (N/A Mouth) Medical [...]
--- OUTSIDE RECORDS SUMMARY | ~2020-07-16 | XMS | Encounter Summary ---
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 No signs of bleeding were noted upon dis continuation of TR band. Pt given discharge paperwork however left this behind. Pt VSS. P t denies pain. Pt discharged to home with spouse. onver zoe Transaction, Provider Unknown - 10/31/2015 1:58 PM PST Progress Notes by Allan Julio RPH at 10/31/15 0818 Author: Allan Julio RPH Service: (none) Author Type: Pharmacist Filed: 10/31/15 2815 Date of Service: 10/31/151357 Status: Signed Surgery Nurse: Allan Julio RPH (Pharmacist) Renal Dosing Monitoring: [...] Date of Service: 10/31/15 1102 Status: Signed Surgery Nurse: Alex Villegas MD (Physician) [facility] Service: Cardiology Pre-Operative History & Physical [...] 1133 Note Time: 10/18/15 0950 Status: Signed Surgery Nurse: Robel Ricci DO (Physician) Expand All Collapse [...] 2 (two) times daily as need ed. [place]-3 Fatty Acids (FISH OIL) 1200 MG CAPS [...] | | | | | performed at 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
--- OUTSIDE RECORDS SUMMARY | ~2020-07-16 | XMS | Encounter Summary ---
Demographics + + + | Address | [address] | | | [place] [address] | + + + | Home Phone [...] Providers + +------+ + | Care Supervisor Lending Activities Name | Role | Phone | + [...] Jerome | | | | | Jr [facility] | [address] | | | | | Hospital Admitting | [place], [place] | | | | | Desk Located on the | [address] | | | | | 9th floor | [phone] | | | | | [facility] [place] | | | | | | [address] | Princess Ward MD | | | | | | [address] | | | | | | [place], | | | | | | [place] [address] | | | | | | [phone] | | | | | | | [...] Line | Standard; Left; 20g; 06/12/18; | HANDBOOK WRITER | | | | 1617; Per order | | | +--------+ + + + | Periph | 06/12/18; 1323; Right; Wrist; 20 | 06/12/18 1323 by | 06/14/181999 by | | eral | g; 06/14/18; 1999 | Robel Page, | Gabriel Zapata RN | | IV | | HANDBOOK WRITER | | +--------+ + + + | [...] be different from the original. Duane Mas [id number] Allergies Allergen Reactions Sulfa (Sulfonamide Antibiotics) Rash [...] e different from the original. 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
--- OUTSIDE RECORDS SUMMARY | ~2020-07-16 | XMS | Encounter Summary ---
Demographics + + + | Address | [address] | | | [place] [address] | + + + | Home Phone [...] Team Providers + +------+ + | Care Publisher Assistant Name | Role | Phone | [...] | | | | and | | [address] | | | | | inflammatory | | [address] | | | | | reaction | | [address] [place], | | | | | due to | | [place] | | | | | internal | | [address] | | | | | right knee | | Phone: | | | | | prosthesis, | | [phone] | | | | | initial | | Fax: | | | | | encounter | | [phone] | +--------+--------+ + + + + Encounter [...] | | | [place], 3rd floor | [address] | (Primary Dx); Long | | | | [place], [place] | [phone] | term (current) use | | | | [address] | | of antibiotics | | | | [phone] | | | +--------+---------+ + + + [...] Take by mouth., Disp: , Rfl: antiox. no.61-[id number]-[id number]-kta-tvr (I-CAPS) 280-10-2 mg oral capsule, Take 1 [...] locally Abril Shields MD Infectious Diseases p [phone] documented in this encounter Plan of Treatment Not on filedocumented as of this encounter Visit Diagnoses + + | Diagnosis | + + | Infection associated with internal right knee prosthesis, subsequent encounter - | | Primary | + + | termination clerk (current) use of antibiotics | + + documented in this encounter
--- OUTSIDE RECORDS SUMMARY | ~2020-07-16 | XMS | Encounter Summary ---
Demographics + + + | Address | [address] | | | [place] [address] | + + + | Home Phone [...] + + + | Author | [facility] | + + + | Organization | [facility] | + + + | Address | Unknown | + + + | Phone | Unavailable | + + + Support + + +---------+ + | Name | Relationship | Address | Phone | + + +---------+ + | Beth Mas | ECON | Unknown | | + + +---------+ + Care Team Providers + +------+ + | Care Web Sizer Name | Role | Phone | + [...] Jerome | | | | | Jr [facility] | [address] | | | | | Hospital Admitting | [place], [place] | | | | | Desk Located on the | [address] | | | | | 9th floor | [phone] | | | | | [facility] [place] | | | | | | [address] | Princess Ward MD | | | | | | [address] | | | | | | [place], | | | | | | [place] [address] | | | | | | [phone] | | | | | | | [...] Line | Standard; Left; 20g; 06/12/18; | STATE EPIDEMIOLOGIST | | | | 1617; Per order | | | +--------+ + + + | Periph | 06/12/18; 1323; Right; Wrist; 20 | 06/12/18 1323 by | 06/14/181999 by | | eral | g; 06/14/18; 1999 | Robel Page, | Gabriel Zapata RN | | IV | | STATE EPIDEMIOLOGIST | | +--------+ + + + | [...] be different from the original. Duane Mas [id number] Allergies Allergen Reactions Sulfa (Sulfonamide Antibiotics) Rash [...] e different from the original. 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
--- OUTSIDE RECORDS SUMMARY | ~2020-07-16 | XMS | Encounter Summary ---
Demographics + + + | Address | [address] | | | [place] [address] | + + + | Home Phone [...] Team Providers + +------+ + | Care Lance Crewmember/Mlrs Sergeant Name | Role | Phone | + [...] Provider Unknown | | | | | [place] | | | | | | [address] | (Fax) | | | | | [phone] | | | +--------+ + + + [...]
--- OUTSIDE RECORDS SUMMARY | ~2020-07-16 | XMS | Encounter Summary ---
Demographics + + + | Address | [address] | | | [place] [address] | + + + | Home Phone [...] Providers + +------+ + | Care Senior Geologist Name | Role | Phone | + +------+ + PCP | Unavailable | + +------+ + Encounter Details +--------+ + + + + | Date | Type | Department | Care Team | Description | +--------+ + + + + | 09/29/ | [facility] | Zeb Giang | | | 2000 - | Encounter | [facility] | [address] [place] | | | | | CARDIAC TELEMETRY | [address] [place] | | | 10/04/ | | [address] | [address] | | | 2000 | | [place] | | | | | | [address] | | | | | | [phone] | | | +--------+ + + + [...]
--- OUTSIDE RECORDS SUMMARY | ~2020-07-16 | XMS | Encounter Summary ---
Demographics + + + | Address | [address] | | | [place] [address] | + + + | Home Phone [...] Team Providers + +------+ + | Care Knurling Machine Tender Name | Role | Phone [...] | | | [address] | [facility] | | | | | Loop Physician's | [place], [place] | | | | | [place], [address] [place] [address] | [address] | | | | | [place], [place] | [phone] | | | | | [address] | | | | | | [phone] | | | +--------+ + + + [...] received orders. Confirmed with RN KARLA at [facility] He alth that they will pull [...]
--- OUTSIDE RECORDS SUMMARY | ~2020-07-16 | XMS | Encounter Summary ---
Demographics + + + | Address | [address] | | | [place] [address] | + + + | Home Phone | | + + + | Preferred Language | Unknown | + + + | Marital Status | | + + + | Taoism Affiliation | 1077 | + + + [...] Team Providers + +------+ + | Care Interior Design Program Chair Name | Role | Phone | + +------+ + PCP | Unavailable | + +------+ + Encounter Details +--------+ + + + + | Date | Type | Department | Care Team | Description | +--------+ + + + + | 10/08/ | Hospital | [facility] | Olaf Nicole | | | 1998 - | Encounter | HEART MED CTR | MD [address] | | | | | CARDIAC TELEMETRY | [address] | | | 10/09/ | | [address] | [place] [address] | | | 2000 | | [place] | [phone] | | | | | [address] | | | | | | [phone] | | | +--------+ + + + [...]
--- OUTSIDE RECORDS SUMMARY | ~2020-07-16 | XMS | Encounter Summary ---
Demographics + + + | Address | [address] | | | [place] [address] | + + + | Home Phone [...] Providers + +------+ + | Care Auto Customize Painter Name | Role | Phone | [...] | | | | Loop Physician's | [place], [place] | | | | | [place], [facility] floor | [address] | | | | | [place], [place] | [phone] | | | | | [address] | | | | | | [phone] | | | +--------+ + + + [...] that the patient has been admitted to [facility] as of yesterday. He is in [...]
--- OUTSIDE RECORDS SUMMARY | ~2020-07-16 | XMS | Encounter Summary ---
Demographics + + + | Address | [address] | | | [place] [address] | + + + | Home Phone [...] Team Providers + +------+ + | Care Diabetes Trainer Name | Role | Phone | [...] | | | Loop Physician's | [place], [place] | | | | | [place], [facility] floor | [address] | | | | | [place], [place] | [phone] | | | | | [address] | | | | | | [phone] | | | +--------+--------+ + + + [...]
--- OUTSIDE RECORDS SUMMARY | ~2020-07-16 | XMS | Encounter Summary ---
Demographics + + + | Address | [address] | | | [place] [address] | + + + | Home Phone [...] + + | Author | [facility] | | | and [place] | + + + | Organization | [facility] | | | [...] Team Providers + +------+ + | Care Car Washer Name | Role | Phone | [...] + + | 07/31/ | Surgery | [facility] | Willow Colin MD | EGD with Dilation | | 2017 | | MED CTR MP INTRA OP | [address] | | | | | [address] | [address] [place], | | | | | [place], [place] | [place] [address] | | | | | [address] | [phone] | | | | | [phone] | | | +--------+---------+ + + + [...] 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 superintendent tests omeprazole at [place], [place]. documented in this encounter Medications at [...] Electronically signed Willow Colin MD 07/31/2017 14:06 [facility] 2:1 1 PM PDTOp Note - [...] [address] | [place] | [phone] | | [facility] | | [address] | | | - LABORATORY | | [...] Negative for Helicobacter pylori with HE stain. [facility]:caw:[id number] GROSS | | | DESCRIPTION: [...] technical and professional components were performed by [employer] | | | [employer], [address] [place] [address] | | | (Grinding Machine Operator Automatic: Don Morrell D.O.; [facility]#: [id number]). | | | Diagnostician: Gavin Michaud MD [...]
--- OUTSIDE RECORDS SUMMARY | ~2020-07-16 | XMS | Encounter Summary ---
Demographics + + + | Address | [address] | | | [place] [address] | + + + | Home Phone [...] Team Providers + +------+ + | Care Form Builder Name | Role | Phone | [...] + + | 07/29/ | Telephone | [facility] | Britni Alcazar RN | Follow-up (Call to | | 2018 | | CARDIOLOGY [place] | | schedule follow up | | | | [address] | | appt. ) | | | | [place] | | | | | | [address] | | | | | | [phone] | | | +--------+ + + + [...]
--- OUTSIDE RECORDS SUMMARY | ~2020-07-16 | XMS | Encounter Summary ---
Demographics + + + | Address | [address] | | | [place] [address] | + + + | Home Phone [...] Team Providers + +------+ + | Care Chemical Process Analyst Name | Role | Phone | + +------+ + PCP | Unavailable | + +------+ + Encounter Details +--------+ + + + + | Date | Type | Department | Care Team | Description | +--------+ + + + + | 09/17/ | Hospital | [facility] | Zay Francis, | | | 1996 - | Encounter | HEART MED CTR | [address] | | | | | CARDIAC TELEMETRY | [address] [place] | | | 09/21/ | | [address] | [address] | | | 1998 | | [place] | [phone] | | | | | [address] | | | | | | [phone] | | | +--------+ + + + [...]
--- OUTSIDE RECORDS SUMMARY | ~2020-07-16 | XMS | Encounter Summary ---
Demographics + + + | Address | [address] | | | [place] [address] | + + + | Home Phone [...] Providers + +------+ + | Care Rubber Goods Inspector Tester Name | Role | Phone | [...] | 2018 | Visit | [facility] | MD [address] | unspecified | | | | [address] | [place], [place] | chronicity (Primary | | | | [address] | [address] | Dx) | | | | [place], [place] | [phone] | | | | | [address] | | | | | | [phone] | | | +--------+---------+ + + + [...] might be different fr om the original. [facility] Today's date: 08/18/18 [...] as listed. GHASSAN SHERMAN MD ORTHOPAEDICS AT [address] [place] [address] Orders Placed This Encounter X-RAY KNEE 2 [...]
--- OUTSIDE RECORDS SUMMARY | ~2020-07-16 | XMS | Encounter Summary ---
Demographics + + + | Address | [address] | | | [place] [address] | + + + | Home Phone [...] Team Providers + +------+ + | Care Licensing Worker Name | Role | Phone | + +------+ + PCP | Unavailable | + +------+ + Encounter Details +--------+ + + + + | Date | Type | Department | Care Team | Description | +--------+ + + + + | 05/02/ | [facility] | Olaf Nicole | | | 1998 - | Encounter | HEART MED CTR | MD [address] | | | | | CARDIAC TRANSPLANT | [address] | | | 05/03/ | | [address] | [place] [address] | | | 2000 | | [place] | [phone] | | | | | [address] | | | | | | [phone] | | | +--------+ + + + [...]
--- OUTSIDE RECORDS SUMMARY | ~2020-07-16 | XMS | Encounter Summary ---
Demographics + + + | Address | [address] | | | [place] [address] | + + + | Home Phone [...] Team Providers + +------+ + | Care Machine Heel Seat Laster Name | Role | Phone | + [...] | | | | Loop Physician's | [place], [place] | | | | | [place], [facility] floor | [address] | | | | | [place], [place] | [phone] | | | | | [address] | | | | | | [phone] | | | +--------+ + + + [...] that the patient has been admitted to [facility] as of yesterday. He is in [...]
--- OUTSIDE RECORDS SUMMARY | ~2020-07-16 | XMS | Encounter Summary ---
Demographics + + + | Address | [address] | | | [place] [address] | + + + | Home Phone [...] Team Providers + +------+ + | Care Eyeglass Lens Grinder Name | Role | Phone | + [...] | | | | Loop Physician's | [place], [place] | | | | | [place], [facility] floor | [address] | | | | | [place], [place] | [phone] | | | | | [address] | | | | | | [phone] | | | +--------+ + + + [...] [place], FLY - 06/30/2018 2:09 PM [facility] and was informed that the patient left their facility on 06/26/18 because he met h is PT needs. We were not notified. Pt is now under the care of [facility] [place] P [phone] F [phone] and [facility] P [phone] F [phone]. I called and spoke to Joslyn at [facility]. She stated that the patient had his PICC dress ing changed today but that they have not drawn labs as they do not have orders yet. She also said that [place] is providing the IV cefazolin. I called [facility] and spoke to Jaquelin, who said that this patient is not on service with them. She recommended calling the [place] office in [place]. I called and spoke to Rosalind, pharmacist at [place] office who confirmed that they have the p atient on their service. Abx/PMSO have been faxed to both [facility] and [facility]. Jaye [place] RN elephone Encounter - [...]
--- OUTSIDE RECORDS SUMMARY | ~2020-07-16 | XMS | Clinical Summary ---
Demographics + + + | Address | [address] | | | [place] [address] | + + + | Home Phone [...] Providers + +------+ + | Care Tableau Architect Name | Role | Phone | + +------+ + | Gilberto Estrada MD | PCP | | + +------+ + Source Comments WHITNEY is fully live on both [facility] Ambulatory and [facility] InPatient.[facility] Allergies + + + + + + | Active Allergy | Reactions | Severity | Noted | Comments | | | | | Date | | + + + + + + | Nsaids | Renal Failure | High | 06/14/20 | Avoid per | | (Non-Steroidal | | | 18 | Middleware Developer | | Anti-Inflammatory | | | | [...] 0 | | | Activ | | no.30-lsvp8a-mfzvkcp6k-bzd-aaz | mouth once daily. 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 | 06/11/2018 | [...] Right: | MARIALUISA | | 11/26/ | 1670-G | | 13mm Implanted: Qty: 1 on | | Knee | | | 2019 | -513 / | | 06/12/2018 by Snadoval [place] | | | | | | | | MD Leanne at [facility] RE[facility] | | | | | | [...] + +--------+ | MEDICARE | MEDICA | [id number] | 01/26/20 | [phone] | [address] | Medica | | | RE A & | | 15-Pre | 1 | [address] | re | | | B | | sent | | [place] | | | | | | | | [address] | | + +--------+ +--------+ + +--------+ | COMMERCIAL GROUP | COMMER | [id number] | 10/27/19 | | | Indemn | [...] Person | Self | [birth year] | [address] | | | al/Fam | | 1940 | [phone] | [place] [address] | | | afshan | | | [...]
--- OUTSIDE RECORDS SUMMARY | ~2020-07-16 | XMS | Encounter Summary ---
Demographics + + + | Address | [address] | | | [place] [address] | + + + | Home Phone [...] Team Providers + +------+ + | Care Permit Technician Name | Role | Phone | + +------+ + | Gilberto Estrada MD | PCP | | + +------+ + Encounter Details +--------+ + + + + | Date | Type | Department | Care Team | Description | +--------+ + + + + | 08/18/ | Hospital | Radiology/Imaging | [place], | | | 2017 | Encounter | at [facility] | [address] | | | | | [address] | [place], [place] | | | | | [facility] [address] | [address] | | | | | [place], [place] | [phone] | | | | | [address] | | | | | | [phone] | | | +--------+ + + + [...] | | 0 | | | | no.[id number]-pnk | mouth once daily. | | | [...]
--- OUTSIDE RECORDS SUMMARY | ~2020-07-16 | XMS | Encounter Summary ---
Demographics + + + | Address | [address] | | | [place] [address] | + + + | Home Phone [...] Team Providers + +------+ + | Care Skiver Sock Linings Name | Role | Phone | + +------+ + | Erin Forrester MD | PCP | | + +------+ + Encounter Details +--------+ + + + + | Date | Type | Department | Care Team | Description | +--------+ + + + + | 09/12/ | Orders Only | [facility] | Robel Ricci | | | 2015 | | CARDIOLOGY [place] | MD [address] | | | | | [address] | Kiran Singh F | | | | | [place] | [place] [address] | | | | | [address] | [phone] | | | | | [phone] | | | +--------+ + + + [...] | | | | | by [facility] Read Only, | | | | | [...]
--- OUTSIDE RECORDS SUMMARY | ~2020-07-16 | XMS | Encounter Summary ---
Demographics + + + | Address | [address] | | | [place] [address] | + + + | Home Phone [...] Team Providers + +------+ + | Care Burial Agent Name | Role | Phone | [...] | | [address] | [place] [address] | | | | | [place], [place] | [phone] | | | | | [address] | | | | | | [phone] | | | +--------+ + + + [...] Performed At | + + + | [facility] CARDIOLOGY Nuclear Lexiscan Stress Test History: [...] Rocky, Rad Conversion - 06/17/2019 11:57 PM [facility] | | Lexiscan Stress Test History:75 [...]
--- OUTSIDE RECORDS SUMMARY | ~2020-07-16 | XMS | Encounter Summary ---
Demographics + + + | Address | [address] | | | [place] [address] | + + + | Home Phone [...] Team Providers + +------+ + | Care Plan Checker Name | Role | Phone | + [...] + + | 07/29/ | Telephone | [facility] | Brinti Alcazar RN | Follow-up (Call to | | 2018 | | CARDIOLOGY [place] | | schedule follow up | | | | [address] | | appt. ) | | | | [place] | | | | | | [address] | | | | | | [phone] | | | +--------+ + + + [...]
--- OUTSIDE RECORDS SUMMARY | ~2020-07-16 | XMS | Encounter Summary ---
Demographics + + + | Address | [address] | | | [place] [address] | + + + | Home Phone [...] Team Providers + +------+ + | Care Family Law Legal Assistant Name | Role | Phone | [...] | 2018 | | [address] | [address] | POSSIBLE COMPONENT | | | | Rd [facility] Main | [facility] [place] | EXCHANGE, POSSIBLE | | | | Hospital Admitting | [address] | REVISION | | | | Desk Located on the | [phone] | | | | | 9th floor | | | | | | [place], [place] | | | | | | [address] | | | +--------+---------+ + + + [...] | | 0 | | | | no.67-[id number]-vpemmqr8w-byh-jld | mouth once daily. | | | [...] Leon who advised PT to come to [facility] ED. Advised Dr. Yen to call [...]
--- OUTSIDE RECORDS SUMMARY | ~2020-07-16 | XMS | Encounter Summary ---
Demographics + + + | Address | [address] | | | [place] [address] | + + + | Home Phone [...] Team Providers + +------+ + | Care Submersible Pilot Name | Role | Phone | [...] [facility] | | | | | | [facility] | | | | | | and Healing, | | | | | | Building [address], 5th | | | | | | Floor [place], [place] | | | | | | [address] | | | | | | [phone] | | | +--------+ + + + [...] punch | | | | | | bkgnbny-glvx-adi skin, | | | | | | [...] [facility] | Mail[address] | [place] | | | DERMATOPATHOLOGY | [address] | | | + + + + + | [facility] | Mailcode [address] | [place] [address] | | | DERMATOPATHOLOGY | [address] | | | + + + + + documented in this encounter Visit Diagnoses + + | Diagnosis | + + | Other specified dermatitis | + + documented in this encounter
--- OUTSIDE RECORDS SUMMARY | ~2020-07-16 | XMS | Encounter Summary ---
Demographics + + + | Address | [address] | | | [place] [address] | + + + | Home Phone [...] + + | Author | [facility] | | | and [place] | + + + | Organization | [facility] | | | and [...] Providers + +------+ + | Care Inspector Hairspring Truing Name | Role | Phone | + +------+ + PCP | Unavailable | + +------+ + Encounter Details +--------+ + + + + | Date | Type | Department | Care Team | Description | +--------+ + + + + | 10/25/ | Emergency | [facility] | Syed Winchester | Fever, unspecified | | 2016 | | MEDICAL CENTER | DO [address] | fever cause; | | | | EMERGENCY CENTER | [address] | Leukocytosis, | | | | [address] | [place] | unspecified type | | | | [facility] [place] | [address] | | | | | [address] | [phone] | | | | | [phone] | | | +--------+ + + + [...] 0313 Date of Service: 10/25/162035 Status: Signed Supervisor Scrap Preparation: Syed Winchester DO (Physician) [facility] Department of Emergency Medicine 8:37 PM [...] - TOTAL; Surgeon: Drew Hurst MD; Location: [facility] MAIN OR; Serv e: Orthopedics; [...] (two) times daily as needed. Historical Provider [place]-3 Fatty Acids (FISH OIL) 1200 MG CAPS [...] 10:40 PM Discuss[address] case with Dr. Ha, Cloth Reeler, who requests that the patient be st [...] Date/Time Urinalysis (reflex to microscopic/reflex to culture) [[id number]] (Abnormal) Collected: 10/25/162218 Order Status: Completed Specimen Information: Urine, Clean Catch Updated: 10/25/16 22 34 COLOR UA YELLOW CLARITY CLEAR Specific [place], UA 1.020 1.002 - 1.030 LEUKOCYTE ESTERASE NEGATIVE NEGATIVE NITRITE NEGATIVE NEGATIVE UROBILINOGEN NORMAL <1.1 mg/dL PROTEIN NEGATIVE NEGATIVE mg/dL PH,URINE 5.0 5.0 - 8.0 BLOOD NEGATIVE NEGATIVE KETONES NEGATIVE NEGATIVE mg/dL BILIRUBIN NEGATIVE NEGATIVE GLUCOSE 50 (A) NEGATIVE mg/dL Influenza Antigen [[id number]] Collected: 10/25/162104 Order Status: Completed Specimen Information: Nasopharyngeal from Nasopharyngeal Cultur e Updated: 10/25/162141 INFLUENZA A NEGATIVE NEGATIVE INFLUENZA B NEGATIVE NEGATIVE Complete Metabolic Panel [[id number]] (Abnormal) Collected: 10/25/162102 Order Status: Completed Specimen [...] (L) >60 mL/min/1.73m2 CBC w Auto Diff [[id number]] (Abnormal) Collected: 10/25/162102 Order Status: Completed Specimen [...] fol low up and evaluation [address] [facility] [address] Tita Christopher MD Call in 1 week As needed for further follow up and evaluation [address] [facility] [address] [place] [id number] [facility] Emergency Department If symptoms worsen [address] [facility] [address] Discharge Medications: Discharge Medication List as of [...] Rad Conversion - 06/10/2019 6:48 PM TOMMIE [id number] yearsXR CHEST | | 2 VIEW FRONTAL AND XPZFNVF0810/25/2016 10:32 PM INDICATION: Fever. TECHNIQUE: 2 views [...] EXTERNAL | | | | performed at [facility];888 | | LAB | | | | [address];[place] | | | | | | [address] | | | | + + + + + + | Clarity, | CLEARComment: Testing | | EXTERNAL | | | Urine | performed at [facility];[address] | | LAB | | | | [address];[place] | | | | | | [address] | | | | + + + + + + | Specific | 1.020Comment: Testing | 1.002 - 1.030 | EXTERNAL | | | [place], | performed at [facility];[address] | | LAB | | | Urine | [address];[place] | | | | | | [address] | | | | + + + + + + | Leukocyte | NEGATIVEComment: Testing | | EXTERNAL | | | Esterase, | performed at [facility];888 | | LAB | | | Urine | [address];[place] | | | | | | [address] | | | | + + + + + + | Nitrite, | NEGATIVEComment: Testing | | EXTERNAL | | | Urine | performed at [facility];[address] | | LAB | | | | [address];[place] | | | | | | [address] | | | | + + + + + + | Urobilinoge | NORMALComment: Testing | mg/dL | EXTERNAL | | | n, Urine | performed at [facility];[address] | | LAB | | | | [address];[place] | | | | | | [address] | | | | + + + + + + | Protein, | NEGATIVEComment: Testing | mg/dL | EXTERNAL | | | Urine | performed at [facility];[address] | | LAB | | | | [address];[place] | | | | | | [address] | | | | + + + + + + | pH, Urine | 5.0Comment: Testing | 5.0 - 8.0 | EXTERNAL | | | | performed at [facility];[address] | | LAB | | | | [address];[place] | | | | | | [address] | | | | + + + + + + | Blood, | NEGATIVEComment: Testing | | EXTERNAL | | | Urine | performed at [facility];[address] | | LAB | | | | [address];[place] | | | | | | [address] | | | | + + + + + + | Ketones | NEGATIVEComment: Testing | mg/dL | EXTERNAL | | | | performed at [facility];[address] | | LAB | | | | [address];[place] | | | | | | [address] | | | | + + + + + + | Bilirubin, | NEGATIVEComment: Testing | | EXTERNAL | | | Urine | performed at [facility];[address] | | LAB | | | | [address];[place] | | | | | | [address] | | | | + + + + + + | Glucose, | 50 (A)Comment: Testing | mg/dL | EXTERNAL | | | Urine | performed at [facility];[address] | | LAB | | | | [address];[place] | | | | | | [address] | | | | + + + [...] | performed by ICA Testing performed at [facility];[address] [facility];[place], [place] | | | [address] INFLUENZA B NEGATIVE | | | Testing performed by I[facility] Testing performed at [facility];[address] [facility] | | | [facility];[place] [address] | | + + + + +---------+ [...] | | | | | [address];[place] [address] | | | | + + + + + + | Non- | 5.15Comment: Testing | 4.20 - 5.70 | EXTERNAL | | | Red Blood | performed at [facility];888 | M/uL | LAB | | | Cells | [address];[place] | | | | | Counted | [address] | | | | + + + + + + | Hemoglobin | 15.7Comment: Testing | 13.2 - 17.0 | EXTERNAL | | | | performed at [facility];888 | g/dL | LAB | | | | [address];[place] | | | | | | [address] | | | | + + + + + + | Hematocrit, | 46.2Comment: Testing | 39.0 - 50.0 % | EXTERNAL | | | POC | performed at [facility];[address] | | LAB | | | | [address];[place] | | | | | | [address] | | | | + + + + + + | MCV | 89.6Comment: Testing | 80.0 - 100.0 fl | EXTERNAL | | | | performed at [facility];[address] | | LAB | | | | [address];[place] | | | | | | [address] | | | | + + + + + + | MCH | 30.4Comment: Testing | 27.0 - 34.0 pg | EXTERNAL | | | | performed at [facility];[address] | | LAB | | | | [address];[place] | | | | | | [address] | | | | + + + + + + | MCHC | 33.9Comment: Testing | 32.0 - 35.5 | EXTERNAL | | | | performed at [facility];888 | g/dL | LAB | | | | [address];[place] | | | | | | [address] | | | | + + + + + + | RDW-CV | 48.1Comment: Testing | 37 - 53 fl | EXTERNAL | | | | performed at [facility];[address] | | LAB | | | | [address];[place] | | | | | | [address] | | | | + + + + + + | Platelet | 99 (L)Comment: Testing | 150 - 400 K/uL | EXTERNAL | | | Count | performed at [facility];[address] | | LAB | | | Plasma | [address];[place] | | | | | | [address] | | | | + + + + + + | MPV | 8.7Comment: Testing | fl | EXTERNAL | | | | performed at [facility];[address] | | LAB | | | | [address];[place] | | | | | | [address] | | | | + + + + + + | Differentia | AUTOMATEDComment: | | EXTERNAL | | | l Type | Testing performed at | | LAB | | | | [facility];[address];[place] [address] | | | | + + + + + + | % Segmented | 83.01Comment: Testing | % | EXTERNAL | | | | performed at [facility];[address] | | LAB | | | Neutrophils | [address];[place] | | | | | | [address] | | | | + + + + + + | % | 8.29Comment: Testing | % | EXTERNAL | | | Lymphocytes | performed at [facility];[address] | | LAB | | | | [address];[place] | | | | | | [address] | | | | + + + + + + | % Monocytes | 7.46Comment: Testing | % | EXTERNAL | | | | performed at [facility];[address] | | LAB | | | | [address];[place] | | | | | | [address] | | | | + + + + + + | % | 0.85Comment: Testing | % | EXTERNAL | | | Eosinophils | performed at [facility];[address] | | LAB | | | | [address];[place] | | | | | | [address] | | | | + + + + + + | % Basophils | 0.39Comment: Testing | % | EXTERNAL | | | | performed at [facility];[address] | | LAB | | | | [address];[place] | | | | | | [address] | | | | + + + + + + | Absolute | 10.02 (H)Comment: | 1.90 - 7.40 | EXTERNAL | | | Segmented | Testing performed at | K/uL | LAB | | | Neutrophils | [facility];[address] | | | | | [address];[place] [address] | | | | + + + + + + | Absolute | 1.00Comment: Testing | 1.00 - 3.90 | EXTERNAL | | | Lymphocytes | performed at [facility];[address] | K/uL | LAB | | | | [address];[place] | | | | | | [address] | | | | + + + + + + | Absolute | 0.90 (H)Comment: Testing | 0.00 - 0.80 | EXTERNAL | | | Monocytes | performed at [facility];888 | K/uL | LAB | | | | [address];[place] | | | | | | [address] | | | | + + + + + + | Absolute | 0.10Comment: Testing | 0.00 - 0.50 | EXTERNAL | | | Eosinophils | performed at [facility];[address] | K/uL | LAB | | | | [address];[place] | | | | | | [address] | | | | + + + + + + | Absolute | 0.05Comment: Testing | 0.00 - 0.10 | EXTERNAL | | | Basophils | performed at [facility];[address] | K/uL | LAB | | | | [address];[place] | | | | | | [address] | | | | + + + [...] EXTERNAL | | | | performed at [facility];888 | mmol/L | LAB | | | | [address];[place] | | | | | | [address] | | | | + + + + + + | K | 3.6Comment: Testing | 3.5 - 4.9 | EXTERNAL | | | | performed at [facility];888 | mmol/L | LAB | | | | [address];[place] | | | | | | [address] | | | | + + + + + + | Cl | 95 (L)Comment: Testing | 99 - 109 mmol/L | EXTERNAL | | | | performed at [facility];[address] | | LAB | | | | [address];[place] | | | | | | [address] | | | | + + + + + + | CO2 | 29Comment: Testing | 23 - 32 mmol/L | EXTERNAL | | | | performed at [facility];[address] | | LAB | | | | [address];[place] | | | | | | [address] | | | | + + + + + + | Anion Gap | 17Comment: Testing | 5 - 20 mmol/L | EXTERNAL | | | | performed at [facility];[address] | | LAB | | | | [address];[place] | | | | | | [address] | | | | + + + + + + | Glucose, | 117 (H)Comment: Testing | 65 - 99 mg/dL | EXTERNAL | | | Fasting | performed at [facility];[address] | | LAB | | | | [address];[place] | | | | | | [address] | | | | + + + + + + | BUN | 25Comment: Testing | 8 - 25 mg/dL | EXTERNAL | | | | performed at [facility];[address] | | LAB | | | | [address];[place] | | | | | | [address] | | | | + + + + + + | Creatinine | 1.6 (H)Comment: Testing | 0.70 - 1.30 | EXTERNAL | | | | performed at [facility];888 | mg/dL | LAB | | | | [address];[place] | | | | | | [address] | | | | + + + + + + | BUN/Creatin | 16Comment: Testing | | EXTERNAL | | | ine Ratio | performed at [facility];[address] | | LAB | | | | [address];[place] | | | | | | [address] | | | | + + + + + + | Calcium | 8.4 (L)Comment: Testing | 8.5 - 10.5 | EXTERNAL | | | | performed at [facility];888 | mg/dL | LAB | | | | [address];[place] | | | | | | [address] | | | | + + + + + + | Protein, | 7.7Comment: Testing | 6.3 - 8.2 g/dL | EXTERNAL | | | Total | performed at [facility];[address] | | LAB | | | | [address];[place] | | | | | | [address] | | | | + + + + + + | Albumin | 3.5Comment: Testing | 3.3 - 4.8 g/dL | EXTERNAL | | | | performed at [facility];[address] | | LAB | | | | [address];[place] | | | | | | [address] | | | | + + + + + + | Globulin | 4.2Comment: Testing | 1.3 - 4.9 g/dL | EXTERNAL | | | | performed at [facility];[address] | | LAB | | | | [address];[place] | | | | | | [address] | | | | + + + + + + | A/G Ratio | 0.8 (L)Comment: Testing | 1.0 - 2.4 | EXTERNAL | | | | performed at [facility];[address] | | LAB | | | | [address];[place] | | | | | | [address] | | | | + + + + + + | Bilirubin | 1.4Comment: Testing | 0.1 - 1.5 mg/dL | EXTERNAL | | | Total | performed at [facility];[address] | | LAB | | | | [address];[place] | | | | | | [address] | | | | + + + + + + | ALP, | 52Comment: Testing | 35 - 115 U/L | EXTERNAL | | | External | performed at [facility];[address] | | LAB | | | | [address];[place] | | | | | | [address] | | | | + + + + + + | AST | 24Comment: Testing | 10 - 45 U/L | EXTERNAL | | | | performed at [facility];[address] | | LAB | | | | [address];[place] | | | | | | [address] | | | | + + + + + + | ALT | 23Comment: Testing | 10 - 65 U/L | EXTERNAL | | | | performed at [facility];[address] | | LAB | | | | [address];[place] | | | | | | [address] | | | | + + + [...] | | | | | | at [facility];[address];[place] [address] | | | | + + + [...]
--- OUTSIDE RECORDS SUMMARY | ~2020-07-16 | XMS | Encounter Summary ---
Demographics + + + | Address | [address] | | | [place] [address] | + + + | Home Phone [...] Providers + +------+ + | Care Credit Verifier Name | Role | Phone | + [...] PADMINI Jerome | | | | | [address] | [address] | | | | | Loop Physician[address] | [place], [place] | | | | | [place], [facility] floor | [address] | | | | | [place], [place] | [phone] | | | | | [address] | | | | | | [phone] | | | +--------+ + + + [...]
--- OUTSIDE RECORDS SUMMARY | ~2020-07-16 | XMS | Encounter Summary ---
Demographics + + + | Address | [address] | | | [place] [address] | + + + | Home Phone [...] Team Providers + +------+ + | Care Framework Developer Name | Role | Phone | [...] | | | | and | | [address] | | | | | inflammatory | | [address] | | | | | reaction | | [address] [place], | | | | | due to | | [place] | | | | | internal | | [address] | | | | | right knee | | Phone: | | | | | prosthesis, | | [phone] | | | | | initial | | Fax: | | | | | encounter | | [phone] | +--------+--------+ + + + + Encounter [...] | | | [place], [address] floor | [address] | (Primary Dx); Long | | | | [place], [place] | [phone] | term (current) use | | | | [address] | | of antibiotics | | | | [phone] | | | +--------+---------+ + + + [...] Take by mouth., Disp: , Rfl: antiox. no.[id number] (I-CAPS) 280-10-2 mg oral capsule, Take 1 [...] locally Abril Shields MD Infectious Diseases p [phone] documented in this encounter Plan of Treatment Not on filedocumented as of this encounter Visit Diagnoses + + | Diagnosis | + + | Infection associated with internal right knee prosthesis, subsequent encounter - | | Primary | + + | rodent exterminator (current) use of antibiotics | + + documented in this encounter
--- OUTSIDE RECORDS SUMMARY | ~2020-07-16 | XMS | Encounter Summary ---
Demographics + + + | Address | [address] | | | [place] [address] | + + + | Home Phone [...] Team Providers + +------+ + | Care Professional Golf Tournament Player Name | Role | Phone | + [...] | | | | and | | [address] | | | | | inflammatory | | [address] | | | | | reaction | | Rd [place], | | | | | due to | | [place] | | | | | internal | | [address] | | | | | right knee | | Phone: | | | | | prosthesis, | | [phone] | | | | | initial | | Fax: | | | | | encounter | | [phone] | +--------+--------+ + + + + Encounter [...] | | | [address] | [facility] | joint, subsequent | | | | Loop Physician's | [place], [place] | encounter (Primary | | | | [place], [address] floor | [address] | Dx); snf | | | | [place], [place] | [phone] | (current) use of | | | | [address] | | antibiotics | | | | [phone] | | | +--------+---------+ + + + [...] ), Disp: 30 tablet, Rfl: 0 antiox. no.39-[id number] (I-CAPS) 280-10-2 mg oral capsule, Take 1 [...] Pt has no other follow-up needed at [facility] at this time so will contact his PCP to see if continued prescribing of cephalexin can be managed locally Abril Shields MD Infectious Diseases documented in this encounter Plan of Treatment Not on filedocumented as of this encounter Visit Diagnoses + + | Diagnosis | + + | Infection of prosthetic knee joint, subsequent encounter - Primary | + + | snf (current) use of antibiotics | + + documented in this encounter"
--- OUTSIDE RECORDS SUMMARY | ~2020-07-16 | XMS | Encounter Summary ---
Demographics + + + | Address | [address] | | | [place] [address] | + + + | Home Phone [...] Providers + +------+ + | Care Senior Electrical Project Manager Name | Role | Phone [...] | [address] | [address] [facility] | | | | | [place] | [address] | | | | | [address] | [address] | | | | | [phone] | | | +--------+ + + + [...] - 1.030 | EXTERNAL | | | [place], | | | LAB | | | [...]
--- OUTSIDE RECORDS SUMMARY | ~2020-07-16 | XMS | Encounter Summary ---
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 No signs of bleeding were noted upon dis continuation of TR band. Pt given discharge paperwork however left this behind. Pt VSS. P t denies pain. Pt discharged to home with spouse. onver zoe Transaction, Provider Unknown - 10/31/2015 1:58 PM PST Progress Notes by Allan Julio RPH at 10/31/15 3572 Author: Allan Julio RPH Service: (none) Author Type: Pharmacist Filed: 10/31/15 2688 Date of Service: 10/31/151357 Status: Signed Home Office Claims Examiner: Allan Julio RPH (Pharmacist) Renal Dosing Monitoring: [...] Date of Service: 10/31/15 1102 Status: Signed Home Office Claims Examiner: Alex Villegas MD (Physician) [facility] Service: Cardiology Pre-Operative History & [...] 1133 Note Time: 10/18/15 0950 Status: Signed Home Office Claims Examiner: Robel Ricci DO (Physician) Expand All Collapse [...] current dose (simvastatin). DVT (deep venous thrombosis) ([facility]) Hx DVT, right leg, chronic venous insufficiency. On warfarin, managed by PCP. Arterial US, lower Ext, 10/09/2015: TDS, calcification of trifurcation vessels, mild-modera te disease in upper vessels. Diabetes mellitus, type 2 ([facility]) DM2, managed by PCP. F/U with [...] 2 (two) times daily as need ed. 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
--- OUTSIDE RECORDS SUMMARY | ~2020-07-16 | XMS | Encounter Summary ---
Demographics + + + | Address | [address] | | | [place] [address] | + + + | Home Phone [...] Team Providers + +------+ + | Care Record Librarian Name | Role | Phone | + [...] PADMINI Jerome | | | | | [address] | [address] | | | | | Loop Physician's | [place], [place] | | | | | [place], [facility] floor | [address] | | | | | [place], [place] | [phone] | | | | | [address] | | | | | | [phone] | | | +--------+ + + + [...]
--- OUTSIDE RECORDS SUMMARY | ~2020-07-16 | XMS | Encounter Summary ---
Demographics + + + | Address | [address] | | | [place] [address] | + + + | Home Phone [...] Team Providers + +------+ + | Care Pattern And Chain Maker Name | Role | Phone | + +------+ + PCP | Unavailable | + +------+ + Encounter Details +--------+ + + + + | Date | Type | Department | Care Team | Description | +--------+ + + + + | 09/17/ | Hospital | [facility] | Zay Francis, | | | 1998 - | Encounter | [facility] | [address] | | | | | CARDIAC TELEMETRY | [address] [place] | | | 09/21/ | | [address] | [address] | | | 1998 | | [place] | [phone] | | | | | [address] | | | | | | [phone] | | | +--------+ + + + [...]
--- OUTSIDE RECORDS SUMMARY | ~2020-07-16 | XMS | Encounter Summary ---
Demographics + + + | Address | [address] | | | [place] [address] | + + + | Home Phone [...] Providers + +------+ + | Care Human Resources Administrator Name | Role | Phone | [...]
--- OUTSIDE RECORDS SUMMARY | ~2020-07-16 | XMS | Encounter Summary ---
Demographics + + + | Address | [address] | | | [place] [address] | + + + | Home Phone [...] Team Providers + +------+ + | Care Compressed Yeast Supervisor Name | Role | Phone | + +------+ + | Erin Forrester MD | PCP | | + +------+ + Encounter Details +--------+ + + + + | Date | Type | Department | Care Team | Description | +--------+ + + + + | 06/08/ | Orders Only | [facility] | Conversion | | | 2019 | | [facility] [place] | Transaction, | | | | | [address] | Provider Unknown | | | | | [address] [place] | [phone] | | | | | [address] | | | | | | [phone] | | | +--------+ + + + [...] | | | LAB | | | [facility] | | | | | + + [...]
--- OUTSIDE RECORDS SUMMARY | ~2020-07-16 | XMS | Encounter Summary ---
Demographics + + + | Address | [address] | | | [place] [address] | + + + | Home Phone [...] Team Providers + +------+ + | Care Coremaking Machine Operator Name | Role | Phone [...] | | | | Loop Physician's | [place], [place] | | | | | [place], [facility] floor | [address] | | | | | [place], [place] | [phone] | | | | | [address] | | | | | | [phone] | | | +--------+ + + + [...] [place], FLY - 06/30/2018 2:09 PM [facility] was informed that the patient left their facility on 06/26/18 because he met h is PT needs. We were not notified. Pt is now under the care of [facility] P [phone] F [phone] and [facility] P [phone] F [phone]. I called and spoke to Joslyn at [facility]. She stated that the patient had his PICC dress ing changed today but that they have not drawn labs as they do not have orders yet. She also said that [facility] is providing the IV cefazolin. I called Diana and spoke to Jaquelin, who said that this patient is not on service with them. She recommended calling the [facility] office in [place]. I called and spoke to Rosalind, pharmacist at [place] office who confirmed that they have the p atient on their service. Abx/PMSO have been faxed to both [facility] and [facility]. Jaye [place] RN elephone Encounter - [...]
--- OUTSIDE RECORDS SUMMARY | ~2020-07-16 | XMS | Encounter Summary ---
Demographics + + + | Address | [address] | | | [place] [address] | + + + | Home Phone [...] Providers + +------+ + | Care Drop Forger Name | Role | Phone | + [...] | | | | | | PLE MO EGD | | | | | [...] | | | | | [address] [place] | | | | | [place] | [address] | | | | | [address] | [phone] | | | | | [phone] | | | +--------+ + + + + Anesthesia Record + + + + + | Procedure Name | Responsible | Anesthesia Start | Anesthesia Stop Time | | | Anesthesiologist | Time | | + + + + + | EGD WITH DILITATION | Thagn Sarmiento, | 02/10/19 1317 | 02/10/19 1337 [...] and consent obtained. Patient transported to [facility], | | | 7 | [...] 02/10/19 1400 by | | eral | srei-cpw-oteohp catheter system; | Neyda Johnson RN | [...] Duane L Maxwell 78 y.o. male 1940 [id number] Procedure(s) EGD WITH DILITATION (N/A Mouth) Cooperates? [...] signed by Thang Sarmiento MD 02/10/2019 14:13 [facility] nesthesia Preprocedure Evaluation - Thang Sarmiento MD - 2018 7:36 AM PDT ANESTHESIA PREANESTHESIA EVALUATION Duane Mas 78 y.o. 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 . Pulmonary [...] Diabetes mellitus, type II - ORAL Control Njpdn-qy-Fejdkj lying flat DAIJA II Inhibitors - Daily Use Chronic renal insufficiency, stage 4 (severe) . Electronically Signed by: Thang Sarmiento MD ESi date/time: 02/10/2019 7:36 documented in [facility] s encounter Miscellaneous Notes Addendum Note - Thang Sarmiento MD - 02/10/2019 2:50 PM PDTFormatting of this note mi ght be different from the original. Addendum created 02/10/19 4140 by Thang Sarmiento MD SmartForm saved documented [...]
--- OUTSIDE RECORDS SUMMARY | ~2020-07-16 | XMS | Encounter Summary ---
Demographics + + + | Address | [address] | | | [place] [address] | + + + | Home Phone [...] Team Providers + +------+ + | Care Transport Nurse Name | Role | Phone | + +------+ + | Erin Forrester MD | PCP | | + +------+ + Encounter Details +--------+ + + + + | Date | Type | Department | Care Team | Description | +--------+ + + + + | 10/09/ | Orders Only | [facility] | Robel Ricci | | | 2014 | | CARDIOLOGY AARON | [address] | | | | | [place] [address] | [address] | | | | | [place] | [place] [address] | | | | | [address] | [phone] | | | | | [phone] | | | +--------+ + + + [...] | with evidence of 1-49% stenosis. Right SAFETY DIRECTOR: The right common femoral | | | [...] patent with evidence of 1-49% stenosis. Left SAFETY DIRECTOR: | | | The left common femoral [...] GOPAL PS: 82.62 cm/s | | | SAFETY DIRECTOR AC: 28 deg SAFETY DIRECTOR AC: 39 deg SAFETY DIRECTOR PS: 82.56 cm/s SAFETY DIRECTOR PS: | | | 91.14 cm/s NADIYA [...] | | cm/s Pop PS: 66.08 cm/s POTATO SPOTTER AC: 60 deg POTATO SPOTTER AC: 54 deg | | | POTATO SPOTTER PS: 104.11 cm/s POTATO SPOTTER PS: 70.22 cm/s SFA AC: 60 deg [...] AO | | | mid-dist: 1.83 cm Head Buyer Tobacco: MANDEEP Authenticated by: | | | Betina Falk MD Report Date/Time: -- | | | [id number] | | + + + + + [...] with evidence of 1-49% | | stenosis.Right SAFETY DIRECTOR: The right common femoral artery is patent [...] patent with evidence of 1-49% stenosis. Left SAFETY DIRECTOR: The | | left common femoral artery [...] | | 0.92 cmAO mid-dist: 1.83 cm Head Buyer Tobacco: FEMIuthenticated by: Betina Falk | | MDReport Date/Time: -- [id number] IMPRESSION: 1. This was a technically | [...] medial calcification of the trifurcation vessels. | |SAFETY DIRECTOR AC: 39 deg | |SAFETY DIRECTOR PS: 82.56 cm/s | |SAFETY DIRECTOR PS: 91.14 cm/s | |NADIYA AC: 60 [...] cm/s | |Pop PS: 66.08 cm/s | |POTATO SPOTTER AC: 60 deg | |POTATO SPOTTER AC: 54 deg | |POTATO SPOTTER PS: 104.11 cm/s | |POTATO SPOTTER PS: 70.22 cm/s | |SFA AC: 60 [...] |AO mid-dist: 1.83 cm | | | |Head Buyer Tobacco: MANDEEP | |Authenticated by: Betina Falk MD | |Report Date/Time: -- [id number] | | | |IMPRESSION: | |1. This [...]
--- OUTSIDE RECORDS SUMMARY | ~2020-07-16 | XMS | Encounter Summary ---
Demographics + + + | Address | [address] | | | [place] [address] | + + + | Home Phone [...] Team Providers + +------+ + | Care Jar Capper Name | Role | Phone | + [...] | | | | Loop Physician's | [place], [place] | | | | | [place], [facility] floor | [address] | | | | | [place], [place] | [phone] | | | | | [address] | | | | | | [phone] | | | +--------+--------+ + + + [...]
--- OUTSIDE RECORDS SUMMARY | ~2020-07-16 | XMS | Encounter Summary ---
Demographics + + + | Address | [address] | | | [place] [address] | + + + | Home Phone [...] Team Providers + +------+ + | Care Ferry Engineer Name | Role | Phone | + +------+ + PCP | Unavailable | + +------+ + Encounter Details +--------+ + + + + | Date | Type | Department | Care Team | Description | +--------+ + + + + | 10/24/ | Hospital | [facility] | Conversion | Asystole ([facility]) | | 2016 - | Encounter | MEDICAL CENTER | Transaction, | | | | | CLINICAL DECISION | Provider Unknown | | | 10/25/ | | [address] [facility] | | | | 2016 | | [place] | | | | | | [address] | Robel Ricci Ken | | | | | [phone] | [address] | | | | | | [address] | | | | | | [place] [address] | | | | | | [phone] | | | | | | | [...] 1742 Date of Service: 10/25/16956 Status: Signed Process Eng: Mikal Ha MD (Physician) [facility] Service: Cardiology Discharge Summary Date of [...] Date of Service: 10/24/16 1631 Status: Signed Process Eng: Ariana Johnson RN (Registered Nurse) Arm sling applied to left arm. docume nted in this encounter H&P Notes Mikal Ha - 10/24/2016 1:01 PM PST H&P by Mikal Ha MD at 10/24/16 1301 Author: Mikal Ha MD Service: Cardiology Author Type: Physician Filed: 10/24/16 1301 Date of Service: 10/24/16 1301 Status: Signed Process Eng: Mikal Ha MD (Physician) [facility] Service: Cardiology Pre-Operative History & Physical [...] this, however is planning to go to [place] after . He is on warf mustapha [...] mild distal inferior-apical ischemia, LVEF 53%. 14-Day Service Restorer Emergency, 10/10/2016: sinus rhythm, with frequent PVC's, no VT, however, 1st degree AVB, 2nd degree AVB (Type 1 and 2), 3.5sec asystole, bundle branch block. 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 Essential hypertension Hypertension, controlled, continue current [...] this, however is planning to go to [place] after . He is on warfarin at [...] topically 2 (two) times daily as needed. Chacon-3 Fatty Acids (FISH OIL) 1200 MG CAPS [...] (none) Author Type: Registered Nurse Filed: 10/25/16 1025 Date of Service: 10/25/16 1027 Status: Signed Process Eng: Amy Broderick RN (Registered Nurse) Daily care [...] 10/24/162316 Date of Service: 10/24/162316 Status: Signed Process Eng: Erick Ramos RN (Registered Nurse) No falls [...] from the original. Plan of Care by rEick Ramos RN at 10/24/162315 Author: Erick Ramos RN Service: (none) Author Type: Registered Nurse Filed: 10/24/162315 Date of Service: 10/24/162315 Status: Signed Process Eng: Erick Ramos RN (Registered Nurse) Daily care [...] | | Fingerstick | performed at [facility];[address] | | LAB | | | | [address];[place], [place] | | | | | | [address] | | | | + + + + + + + + | Specimen | + + | | + + + +---------+ + + | Performing | Address | City/State/Zipcode | Phone Number | | Organization | | | | + +---------+ + + | EXTERNAL LAB | | | | + +---------+ + + CURTIS D ELA CRUZ (10/24/2016 1:00 PM PST) + + | Specimen | + + | | + + + + + | Narrative | Performed At | + + + | SOURCE NARES(NOSE) | EXTERNAL LAB | | Testing performed at [facility];[address] [place] [address];[place] [address] MRSA PCR | | | NEGATIVE Testing performed at | | | [facility];[address] [place] [address];[place] [address] | | + + + + +---------+ [...] | | | | performed at [facility] | | | | | | [address];[place], [place] | | | | | | [address] | | | | + + + [...] | | | | performed at [facility];[address] | K/uL | LAB | | | | [address];[place] | | | | | | [address] | | | | + + + + + + | Non- | 5.01Comment: Testing | 4.20 - 5.70 | EXTERNAL | | | Red Blood | performed at [facility];[address] | M/uL | LAB | | | Cells | [address];[place] | | | | | Counted | [address] | | | | + + + + + + | Hemoglobin | 15.0Comment: Testing | 13.2 - 17.0 | EXTERNAL | | | | performed at [facility];888 | g/dL | LAB | | | | [address];[place] | | | | | | [address] | | | | + + + + + + | Hematocrit, | 44.8Comment: Testing | 39.0 - 50.0 % | EXTERNAL | | | POC | performed at [facility];[address] | | LAB | | | | [address];[place] | | | | | | [address] | | | | + + + + + + | MCV | 89.6Comment: Testing | 80.0 - 100.0 fl | EXTERNAL | | | | performed at [facility];[address] | | LAB | | | | [address];[place] | | | | | | [address] | | | | + + + + + + | MCH | 29.9Comment: Testing | 27.0 - 34.0 pg | EXTERNAL | | | | performed at [facility];[address] | | LAB | | | | [address];[place] | | | | | | [address] | | | | + + + + + + | MCHC | 33.4Comment: Testing | 32.0 - 35.5 | EXTERNAL | | | | performed at [facility];888 | g/dL | LAB | | | | [address];[place] | | | | | | [address] | | | | + + + + + + | RDW-CV | 50.3Comment: Testing | 37 - 53 fl | EXTERNAL | | | | performed at [facility];[address] | | LAB | | | | [address];[place] | | | | | | [address] | | | | + + + + + + | Platelet | 111 (L)Comment: Testing | 150 - 400 K/uL | EXTERNAL | | | Count | performed at [facility];[address] | | LAB | | | Plasma | [address];[place] | | | | | | [address] | | | | + + + + + + | MPV | 9.1Comment: Testing | fl | EXTERNAL | | | | performed at [facility];[address] | | LAB | | | | [address];[place] | | | | | | [address] | | | | + + + + + + | Differentia | AUTOMATEDComment: | | EXTERNAL | | | l Type | Testing performed at | | LAB | | | | [place];[address];[place] [address] | | | | + + + + + + | % Segmented | 63.78Comment: Testing | % | EXTERNAL | | | | performed at [facility];[address] | | LAB | | | Neutrophils | [address];[place] | | | | | | [address] | | | | + + + + + + | % | 24.36Comment: Testing | % | EXTERNAL | | | Lymphocytes | performed at [facility];[address] | | LAB | | | | [address];[place] | | | | | | [address] | | | | + + + + + + | % Monocytes | 8.57Comment: Testing | % | EXTERNAL | | | | performed at [facility];[address] | | LAB | | | | [address];[place] | | | | | | [address] | | | | + + + + + + | % | 2.68Comment: Testing | % | EXTERNAL | | | Eosinophils | performed at [facility];[address] | | LAB | | | | [address];[place] | | | | | | [address] | | | | + + + + + + | % Basophils | 0.61Comment: Testing | % | EXTERNAL | | | | performed at [facility];[address] | | LAB | | | | [address];[place] | | | | | | [address] | | | | + + + + + + | Absolute | 5.19Comment: Testing | 1.90 - 7.40 | EXTERNAL | | | Segmented | performed at [facility];[address] | K/uL | LAB | | | Neutrophils | [address];[place] | | | | | | [address] | | | | + + + + + + | Absolute | 1.98Comment: Testing | 1.00 - 3.90 | EXTERNAL | | | Lymphocytes | performed at [facility];[address] | K/uL | LAB | | | | [address];[place] | | | | | | [address] | | | | + + + + + + | Absolute | 0.70Comment: Testing | 0.00 - 0.80 | EXTERNAL | | | Monocytes | performed at [facility];[address] | K/uL | LAB | | | | [address];[place] | | | | | | [address] | | | | + + + + + + | Absolute | 0.22Comment: Testing | 0.00 - 0.50 | EXTERNAL | | | Eosinophils | performed at [facility];[address] | K/uL | LAB | | | | [address];[place] | | | | | | [address] | | | | + + + + + + | Absolute | 0.05Comment: Testing | 0.00 - 0.10 | EXTERNAL | | | Basophils | performed at [facility];[address] | K/uL | LAB | | | | [address] | | | | | | [address] | | | | + + + [...] | | | | performed at [facility];888 | mmol/L | LAB | | | | [address];[place] | | | | | | [address] | | | | + + + + + + | K | 3.9Comment: Testing | 3.5 - 4.9 | EXTERNAL | | | | performed at [facility];888 | mmol/L | LAB | | | | [address];[place] | | | | | | [address] | | | | + + + + + + | Cl | 103Comment: Testing | 99 - 109 mmol/L | EXTERNAL | | | | performed at [facility];[address] | | LAB | | | | [address];[place] | | | | | | [address] | | | | + + + + + + | CO2 | 32Comment: Testing | 23 - 32 mmol/L | EXTERNAL | | | | performed at [facility];[address] | | LAB | | | | [address];[place] | | | | | | [address] | | | | + + + + + + | Anion Gap | 9Comment: Testing | 5 - 20 mmol/L | EXTERNAL | | | | performed at [facility];[address] | | LAB | | | | [address];[place] | | | | | | [address] | | | | + + + + + + | Glucose, | 121 (H)Comment: Testing | 65 - 99 mg/dL | EXTERNAL | | | Fasting | performed at [facility];[address] | | LAB | | | | [address];[place] | | | | | | [address] | | | | + + + + + + | BUN | 24Comment: Testing | 8 - 25 mg/dL | EXTERNAL | | | | performed at [facility];[address] | | LAB | | | | [address];[place] | | | | | | [address] | | | | + + + + + + | Creatinine | 1.2Comment: Testing | 0.70 - 1.30 | EXTERNAL | | | | performed at [facility];888 | mg/dL | LAB | | | | [address];[place] | | | | | | [address] | | | | + + + + + + | BUN/Creatin | 20Comment: Testing | | EXTERNAL | | | ine Ratio | performed at [facility];[address] | | LAB | | | | [address];[place] | | | | | | [address] | | | | + + + + + + | Calcium | 8.7Comment: Testing | 8.5 - 10.5 | EXTERNAL | | | | performed at [facility];888 | mg/dL | LAB | | | | [address];[place] | | | | | | [address] | | | | + + + [...] | | | | | at [facility];[address] [place] [address] | | | | | | [facility];[place] [address] | | | | + + + [...]
--- OUTSIDE RECORDS SUMMARY | ~2020-07-16 | XMS | Encounter Summary ---
Demographics + + + | Address | [address] | | | [place] [address] | + + + | Home Phone [...] Team Providers + +------+ + | Care Pizza Delivery Name | Role | Phone | + [...] | | | | Loop Physician's | [place], [place] | | | | | [place], [facility] floor | [address] | | | | | [place], [place] | [phone] | | | | | [address] | | | | | | [phone] | | | +--------+--------+ + + + [...]
--- OUTSIDE RECORDS SUMMARY | ~2020-07-16 | XMS | Encounter Summary ---
Demographics + + + | Address | [address] | | | [place] [address] | + + + | Home Phone [...] Team Providers + +------+ + | Care Pathology Lab Technician Name | Role | Phone | + +------+ + | Erin Forrester MD | PCP | | + +------+ + Encounter Details +--------+ + + + + | Date | Type | Department | Care Team | Description | +--------+ + + + + | 10/09/ | Orders Only | [facility] | Robel Ricci | | | 2014 | | CARDIOLOGY AARON | [address] | | | | | [place] [address] | [address] | | | | | [place] [address] | [place] [address] | | | | | [address] | [phone] | | | | | [phone] | | | +--------+ + + + [...] | with evidence of 1-49% stenosis. Right HOOKING MACHINE OPERATOR: The right common femoral | | | [...] patent with evidence of 1-49% stenosis. Left HOOKING MACHINE OPERATOR: | | | The left common femoral [...] GOPAL PS: 82.62 cm/s | | | HOOKING MACHINE OPERATOR AC: 28 deg HOOKING MACHINE OPERATOR AC: 39 deg HOOKING MACHINE OPERATOR PS: 82.56 cm/s HOOKING MACHINE OPERATOR PS: | | | 91.14 cm/s NADIYA [...] | | cm/s Pop PS: 66.08 cm/s NATUROPATHIC PHYSICIAN AC: 60 deg NATUROPATHIC PHYSICIAN AC: 54 deg | | | NATUROPATHIC PHYSICIAN PS: 104.11 cm/s NATUROPATHIC PHYSICIAN PS: 70.22 cm/s SFA AC: 60 deg [...] AO | | | mid-dist: 1.83 cm Treasury Management Sales Consultant: MANDEEP Authenticated by: | | | Betina Falk MD Report Date/Time: -- | | | [id number] | | + + + + + [...] with evidence of 1-49% | | stenosis.Right HOOKING MACHINE OPERATOR: The right common femoral artery is patent [...] patent with evidence of 1-49% stenosis. Left HOOKING MACHINE OPERATOR: The | | left common femoral artery [...] | | 0.92 cmAO mid-dist: 1.83 cm Treasury Management Sales Consultant: FEMIuthenticated by: Betina Falk | | MDReport Date/Time: -- [id number] IMPRESSION: 1. This was a technically | [...] medial calcification of the trifurcation vessels. | |HOOKING MACHINE OPERATOR AC: 39 deg | |HOOKING MACHINE OPERATOR PS: 82.56 cm/s | |HOOKING MACHINE OPERATOR PS: 91.14 cm/s | |NADIYA AC: 60 [...] cm/s | |Pop PS: 66.08 cm/s | |NATUROPATHIC PHYSICIAN AC: 60 deg | |NATUROPATHIC PHYSICIAN AC: 54 deg | |NATUROPATHIC PHYSICIAN PS: 104.11 cm/s | |NATUROPATHIC PHYSICIAN PS: 70.22 cm/s | |SFA AC: 60 [...] |AO mid-dist: 1.83 cm | | | |Treasury Management Sales Consultant: MANDEEP | |Authenticated by: Betina Falk MD | |Report Date/Time: -- [id number] | | | |IMPRESSION: | |1. This [...]
--- OUTSIDE RECORDS SUMMARY | ~2020-07-16 | XMS | Encounter Summary ---
Demographics + + + | Address | [address] | | | [place] [address] | + + + | Home Phone [...] Team Providers + +------+ + | Care Scrubber System Attendant Name | Role | Phone | + +------+ + | Erin Forrester MD | PCP | | + +------+ + Encounter Details +--------+ + + + + | Date | Type | Department | Care Team | Description | +--------+ + + + + | 03/08/ | Orders Only | [facility] | Conversion | | | 2019 | | NEPHROLOGY [place] | Transaction, | | | | | [address] | Provider Unknown | | | | | [address] | [phone] | | | | | [address] | | | | | | [phone] | | | +--------+ + + + [...]
--- OUTSIDE RECORDS SUMMARY | ~2020-07-16 | XMS | Encounter Summary ---
Demographics + + + | Address | [address] | | | [place] [address] | + + + | Home Phone [...] Team Providers + +------+ + | Care Front Facer Name | Role | Phone | + [...] | | | | Loop Physician's | [place], [place] | | | | | [place], [address] floor | [address] | | | | | [place], [place] | [phone] | | | | | [address] | | | | | | [phone] | | | +--------+ + + + [...]
--- OUTSIDE RECORDS SUMMARY | ~2020-07-16 | XMS | Encounter Summary ---
Demographics + + + | Address | [address] | | | [place] [address] | + + + | Home Phone [...] Team Providers + +------+ + | Care Process Treater Name | Role | Phone | [...] | | 2018 | Visit | [facility] [address] | MD [address] | unspecified | | | | [address] | [place], [place] | chronicity (Primary | | | | [address] | [address] | Dx) | | | | [place], [place] | [phone] | | | | | [address] | | | | | | [phone] | | | +--------+---------+ + + + [...] might be different fr om the original. [facility] Today's date: 08/18/18 [...] as listed. GHASSAN SHERMAN MD ORTHOPAEDICS AT [address] [place] [address] Orders Placed This Encounter X-RAY KNEE 2 [...]
--- OUTSIDE RECORDS SUMMARY | ~2020-07-16 | XMS | Encounter Summary ---
Demographics + + + | Address | [address] | | | [place] [address] | + + + | Home Phone [...] Team Providers + +------+ + | Care Opticianry Teacher Name | Role | Phone | [...] | | | | and | | [address] | | | | | inflammatory | | [address] | | | | | reaction | | [address] [place], | | | | | due to | | [place] | | | | | internal | | [address] | | | | | right knee | | Phone: | | | | | prosthesis, | | [phone] | | | | | initial | | Fax: | | | | | encounter | | [phone] | +--------+--------+ + + + + Encounter [...] | | | | Loop Physician's | [facility] [place] | subsequent encounter | | | | [place], [address] floor | [address] | (Primary Dx); Long | | | | [place], [place] | [phone] | term (current) use | | | | [address] | | of antibiotics | | | | [phone] | | | +--------+---------+ + + + [...] he was briefly hospitalized since discharge from [facility] for ALVINO. Cr now back at prev [...] mouth once daily., Disp: , Rfl: antiox. [id number] (I-CAPS) 280-10-2 mg oral capsule, Take 1 [...] three times daily., Disp: , Rfl: omega 2-iwo-wqx-fish oil (FISH OIL) 100-160-1,000 mg oral capsule, [...] prn Abril Shields MD Infectious Diseases p [phone] documented in this encounter Plan of Treatment Not on filedocumented as of this encounter Visit Diagnoses + + | Diagnosis | + + | Infection associated with internal right knee prosthesis, subsequent encounter - | | Primary | + + | director long term care (current) use of antibiotics | + + documented in this encounter"
--- OUTSIDE RECORDS SUMMARY | ~2020-07-16 | XMS | Encounter Summary ---
Demographics + + + | Address | [address] | | | [place] [address] | + + + | Home Phone [...] Team Providers + +------+ + | Care Reverberatory Furnace Supervisor Name | Role | Phone | + +------+ + | Erin Forrester MD | PCP | | + +------+ + Encounter Details +--------+ + + + + | Date | Type | Department | Care Team | Description | +--------+ + + + + | 10/09/ | Orders Only | [facility] | Robel Ricci | | | 2014 | | CARDIOLOGY AARON | MD [address] | | | | | NUC MED [address] | Kiran Chou | | | | | KIRAN DIALLO | [place] [address] | | | | | [place], [place] | [phone] | | | | | [address] | | | | | | [phone] | | | +--------+ + + + [...] Performed At | + + + | [facility] CARDIOLOGY Nuclear Lexiscan Stress Test History: [...] Rocky, Rad Conversion - 06/17/2019 11:57 PM [facility] | | Lexiscan Stress Test History:75 Year [...]
--- OUTSIDE RECORDS SUMMARY | ~2020-07-16 | XMS | Encounter Summary ---
Demographics + + + | Address | [address] | | | [place] [address] | + + + | Home Phone [...] Team Providers + +------+ + | Care It Software Engineer Name | Role | Phone | + +------+ + | Erin Forrester MD | PCP | | + +------+ + Encounter Details +--------+ + + + + | Date | Type | Department | Care Team | Description | +--------+ + + + + | 03/08/ | Orders Only | [facility] | Conversion | | | 2019 | | NEPHROLOGY RAMBO | Transaction, | | | | | [address] | Provider Unknown | | | | | [address] | [phone] | | | | | [address] | | | | | | [phone] | | | +--------+ + + + [...]
--- OUTSIDE RECORDS SUMMARY | ~2020-07-16 | XMS | Encounter Summary ---
Demographics + + + | Address | [address] | | | [place] [address] | + + + | Home Phone [...] Providers + +------+ + | Care Seed Sales Manager Name | Role | Phone [...] | 2018 | Event | [facility] | [address] | | | | | Jr [facility] | [facility] | | | | | Hospital Admitting | [place], [place] | | | | | Desk Located on the | [address] | | | | | 9th floor | [phone] | | | | | [place], [place] | | | | | | [address] | | | +--------+ + + + [...]
--- OUTSIDE RECORDS SUMMARY | ~2020-07-16 | XMS | Encounter Summary ---
Demographics + + + | Address | [address] | | | [place] [address] | + + + | Home Phone [...] Team Providers + +------+ + | Care Cnc Applications Engineer Name | Role | Phone | [...] | | | | Loop Phys[address] | [place], [place] | | | | | Pavilion, 3rd floor | [address] | | | | | [place], [place] | [phone] | | | | | [address] | | | | | | [phone] | | | +--------+ + + + [...] 07/27/2018 9:17 AM PDTSpoke with Cierra fernando [facility] [phone] and she confirmed that the patient's PICC line is being pulled t his morning. I will call back to for confirmation this afternoon. documented in this encounter Plan of Treatment Not on filedocumented as of this encounter Visit Diagnoses Not on filedocumented in this encounter"
--- OUTSIDE RECORDS SUMMARY | ~2020-07-16 | XMS | Encounter Summary ---
Demographics + + + | Address | [address] | | | [place] [address] | + + + | Home Phone [...] Providers + +------+ + | Care Clinical Genetics Laboratory Chief Name | Role | Phone | + +------+ + | Gilberto Estrada MD | PCP | | + +------+ + Encounter Details +--------+ + + + + | Date | Type | Department | Care Team | Description | +--------+ + + + + | 08/18/ | Hospital | Radiology/Imaging | Sandoval Hyde, | | | 2017 | Encounter | at [facility] | [address] | | | | | [address] | [place], [place] | | | | | [facility] [address] | [address] | | | | | [place], [place] | [phone] | | | | | [address] | | | | | | [phone] | | | +--------+ + + + [...] | | 0 | | | | [id number] | mouth once daily. | | | [...]
--- OUTSIDE RECORDS SUMMARY | ~2020-07-16 | XMS | Encounter Summary ---
Demographics + + + | Address | [address] | | | [place] [address] | + + + | Home Phone [...] Team Providers + +------+ + | Care Engineering Technical Writer Name | Role | Phone | + [...] [facility] | | | | | [address] | [address] | | | | | Loop Phys[address] | [place], [place] | | | | | [place], [facility] floor | [address] | | | | | [place], [place] | [phone] | | | | | [address] | | | | | | [phone] | | | +--------+ + + + [...]
--- OUTSIDE RECORDS SUMMARY | ~2020-07-16 | XMS | Encounter Summary ---
Demographics + + + | Address | [address] | | | [place] [address] | + + + | Home Phone [...] Team Providers + +------+ + | Care Tower Attendant Name | Role | Phone | + +------+ + | Erin Forrester MD | PCP | | + +------+ + Encounter Details +--------+ + + + + | Date | Type | Department | Care Team | Description | +--------+ + + + + | 01/12/ | Orders Only | [facility] | Conversion | | | 2017 | | NEPHROLOGY [place] | Transaction, | | | | | [address] | Provider Unknown | | | | | [address] | [phone] | | | | | [address] | | | | | | [phone] | | | +--------+ + + + [...] - 1.030 | EXTERNAL | | | [place], | | | LAB | | | [...]
--- OUTSIDE RECORDS SUMMARY | ~2020-07-16 | XMS | Encounter Summary ---
Demographics + + + | Address | [address] | | | [place] [address] | + + + | Home Phone [...] Team Providers + +------+ + | Care Grinder Set Up Operator Thread Name | Role | Phone | + [...] + + | 02/10/ | Hospital | [facility] | Willow Colin MD | | | 2019 | Encounter | [facility] | [address] | | | | | [address] | [address] [place], | | | | | [place] | [place] [address] | | | | | [address] | [phone] | | | | | [phone] | | | +--------+ + + + [...] You can't be awakened Date Last Reviewed: 08/13/201619993615-0582 [facility]. [address] [place] [address]. All righ ts reserved. This information is [...] you take. This includes prescription medicines, o ggv-muh-vqiezzo medicines, herbs, vitamins, and other supplements. Be [...] icine to relax you. The procedure takes yxyzr63aoamtea. It does not cause trouble breath ing. [...] Black, tarry, or bloodystools Date Last Reviewed: 04/26/201619992805-2133 [facility]. [address] [place] [address], [place] [address]. All righ ts reserved. This information is [...] prescription medicines Herbs, vitamins, and other supplements Ykrz-koz-ynhsvpf medicines such as aspirin or ibuprofen Street [...] heart or lung disease Date Last Reviewed: 05/27/201719993080-6935 [facility]. [address] [place] [address]. All righ ts reserved. This information is [...] by: Willow Colin MD, 02/10/2019 13:00 [facility] signed by Willow Colin MD at 02/10 [...] + + + | [address] | [address] [place] [address] NE | [place] [address] | [phone] | | [facility] | | | [...] + | [facility] | [address] | [place] | [phone] | | [facility] | | [address] | | | - LABORATORY | | [...] performed by [facility] | | | Diagnostics, [address] [place] [address] | | | (Color Artist: Don Morrell D.O.; IA#: [id number]). | | | Diagnostician: Gely Cerna MD [...]
--- OUTSIDE RECORDS SUMMARY | ~2020-07-16 | XMS | Encounter Summary ---
Demographics + + + | Address | [address] | | | [place] [address] | + + + | Home Phone [...] Team Providers + +------+ + | Care Squaring Machine Operator Name | Role | Phone [...] | | | [address] | [facility] [address] | orders) | | | | Loop Physician's | [place], [place] | | | | | [place], [facility] floor | [address] | | | | | [place], [place] | [phone] | | | | | [address] | | | | | | [phone] | | | +--------+ + + + [...] RN - 07/02/2018 10:26 AM PDTCoram pharmacist Rosalnid cedeñoed to clarify cefazolin dose. Orders sent [...]
--- OUTSIDE RECORDS SUMMARY | ~2020-07-16 | XMS | Encounter Summary ---
Demographics + + + | Address | [address] | | | [place] [address] | + + + | Home Phone [...] Providers + +------+ + | Care It Applications Developer Name | Role | Phone | [...] | | | | | [address] [facility] | | | | | | [place] | | | | | | [address] | | | | | | | [...] | DERMATOPATH | | | MNT) | [address] CLINICAL | | OLOGY | | | [...] | + + + + + | [facility] DEPARTMENT | [address] | [place] [address] | | | PATHOLOGY | [address] | | | + + + + + | [facility] | [address] | [place] [address] | | | DERMATOPATHOLOGY | [address] | | | + + + + + documented in this encounter Visit Diagnoses Not on filedocumented in this encounter"
--- OUTSIDE RECORDS SUMMARY | ~2020-07-16 | XMS | Encounter Summary ---
Demographics + + + | Address | [address] | | | [place] [address] | + + + | Home Phone [...] Providers + +------+ + | Care It Network Engineer Name | Role | Phone | + +------+ + PCP | Unavailable | + +------+ + Encounter Details +--------+ + + + + | Date | Type | Department | Care Team | Description | +--------+ + + + + | 09/03/ | Hospital | [facility] | Conversion | | | 2012 | Encounter | CENTER [facility] | Transaction, | | | | | CLINIC [address] | Provider Unknown | | | | | [place], [place] | | | | | | [address] | (Fax) | | | | | [phone] | | | +--------+ + + + [...] 09/03/131419 Date of Service: 09/03/131419 Status: Signed Clinical Team Lead: Manasa Andrade RN (Registered Nurse) Uses abimael [...] EXTERNAL LAB | | Testing performed at [facility];[address] [place] [address];[place] [address] MRSA PCR | | | NEGATIVE Testing performed at | | | [facility];[address] [place] [address];[place] [address] | | + + + + +---------+ + + | Performing | Address | City/State/Zipcode | Phone Number | | Organization | | | | + +---------+ + + | EXTERNAL LAB | | | | + +---------+ + + documented in this encounter Visit Diagnoses Not on filedocumented in this encounter"
--- OUTSIDE RECORDS SUMMARY | ~2020-07-16 | XMS | Encounter Summary ---
Demographics + + + | Address | [address] | | | [place] [address] | + + + | Home Phone [...] Providers + +------+ + | Care Supervisor Microfilm Duplicating Unit Name | Role | Phone | [...] | | | | Loop Physician's | [place], [place] | | | | | Pavilion, 3rd floor | [address] | | | | | [place], [place] | [phone] | | | | | [address] | | | | | | [phone] | | | +--------+ + + + [...] Celia Hawthorne RN - 07/01/2018 1:36 PM [facility] check in - Transitional Care Management Note ASSESSMENT Spoke with Beth Mas, of patient who is , at [phone]. Beth stated that infusi ons of cefazolin [...] without provider involvement . CELIA HAWTHORNE RN [facility] INFECTIOUS DISEASE PPV INFECTIOUS DISEASES AT [facility] 3RD FLOOR [address] [facility] [place] [address] documented in this enc ounter Plan of Treatment Not on filedocumented as of this encounter Visit Diagnoses Not on filedocumented in this encounter"
--- OUTSIDE RECORDS SUMMARY | ~2020-07-16 | XMS | Encounter Summary ---
Demographics + + + | Address | [address] | | | [place] [address] | + + + | Home Phone [...] Team Providers + +------+ + | Care Ladies' Locker Room Attendant Name | Role | Phone | [...]
--- OUTSIDE RECORDS SUMMARY | ~2020-07-16 | XMS | Encounter Summary ---
Demographics + + + | Address | [address] | | | [place] [address] | + + + | Home Phone [...] Providers + +------+ + | Care Production Supply Equipment Tender Name | Role | Phone | [...] | [address] | [address] [facility] | | | | | [place] | [address] [facility] | | | | | [address] | [address] | | | | | [phone] | | | +--------+ + + + [...] 1.030 | EXTERNAL | | | [place], | | | LAB | | | [...]
--- OUTSIDE RECORDS SUMMARY | ~2020-07-16 | XMS | Encounter Summary ---
Demographics + + + | Address | [address] | | | [place] [address] | + + + | Home Phone [...] Team Providers + +------+ + | Care Label Paster Name | Role | Phone | + [...] | | | | Loop Physician's | [place], [place] | | | | | Pavilion, 3rd floor | [address] | | | | | [place], [place] | [phone] | | | | | [address] | | | | | | [phone] | | | +--------+ + + + [...] Cottrell Ma - 06/24/2018 12:16 PM PDTThis [facility] into the [facility] system of care. Please contact [facility] ID at phone: [phone]; fa x: [phone] with any questions or concerns regarding this [...] sh e is fine w/ coming to [place] twice in a week as there were unsuccessful attempts at setti ng up joint appt. Care Coordination issues needing clarification: none when asked. elephone Encounter - Layne Huang - 06/18/2018 4:10 PM PDTDr. Rinkuwilliam only sees pts at [facility] on '. Could a provide r see the pt as a joint on , 07/23? elephone Encounter - Jaye Winchester RN - 06/17/2018 1:05 PM PDTFormatting o f this note might be different from the original. 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 During t hat time,we will cooridnate so that he may follow up with ID/OPAT in regards to his treatmen t. He will be discharged to [facility] to receive inpatient therapy and OPAT. Recommendations: 1. Change Cefazolin 2g IV q8 hours, with renal adjustments as required 2. Tentative duration of Cefazolin will be 6 weeks from the time of surgery (SOT: 06/12 - [place] T: 07/24) 3. Discussed with patient that OPAT can cont. at [facility]. If patient is discharged fr om there, [...]
--- OUTSIDE RECORDS SUMMARY | ~2020-07-16 | XMS | Encounter Summary ---
Demographics + + + | Address | [address] | | | [place] [address] | + + + | Home Phone [...] Team Providers + +------+ + | Care Scrap Dealer Name | Role | Phone | + [...] floor | | | | | | [place], [place] | | | | | | [address] | | | +--------+ + + + [...]
--- OUTSIDE RECORDS SUMMARY | ~2020-07-16 | XMS | Encounter Summary ---
Demographics + + + | Address | [address] | | | [place] [address] | + + + | Home Phone [...] Team Providers + +------+ + | Care Dehydrator Name | Role | Phone | + [...] [address] | | | | | | [facility] | | | | | | and Healing, | | | | | | Building [address], 5th | | | | | | Floor [place], [place] | | | | | | [address] | | | | | | [phone] | | | +--------+ + + + [...] [facility] | [address] | [place] [address] | | | DERMATOPATHOLOGY | [address] | | | + + + + + | [facility] | Mary [address] | [place] [address] | | | DERMATOPATHOLOGY | [address] | | | + + + + + documented in this encounter Visit Diagnoses Not on filedocumented in this encounter"
--- OUTSIDE RECORDS SUMMARY | ~2020-07-16 | XMS | Encounter Summary ---
Demographics + + + | Address | [address] | | | [place] [address] | + + + | Home Phone [...] Team Providers + +------+ + | Care Material Coordinator Name | Role | Phone | [...] | | | | | associated | [address] | | | | | | with | [address] | | | | | | internal | Mary Norris | | | | | | right knee | [place], [place] | | | | | | prosthesis, | [address] | | | | | | subsequent | Phone: | | | | | | encounter | [phone] | | | | | | Procedures | Fax: | | | | | | OCCUPATIONAL | [phone] | | | | | | THERAPY [...] | | | | | associated | [address] | | | | | | with | [address] | | | | | | internal | Mary Norris | | | | | | right knee | [place], [place] | | | | | | prosthesis, | [address] | | | | | | subsequent | Phone: | | | | | | encounter | [phone] | | | | | | Procedures | Fax: | | | | | | PHYSICAL | [phone] | | | | | | THERAPY [...] + + | 06/11/ | Hospital | [facility] [address] | Sandra Valle MD | | | 2018 - | Encounter | [address] | [address] | | | | | [place], | [address] | | | 06/17/ | | [place] [address] | [place], [place] | | | 2018 | | [phone] | [address] | | | | | | [phone] | | | | | | | | | | | | Edyta Demarco MD | | | | | | [address] | | | | | | [address] | | | | | | [place], [place] | | | | | | [address] | | | | | | [phone] | | | | | | | | | | | | Dean Ugarte MD | | | | | | [address] | | | | | | [address] [place], | | | | | | [place] [address] | | | | | | [phone] | | | | | | | | | | | | Stephan Mercado MD | | | | | | [address] | | | | | | [address] | | | | | | [place], [place] | | | | | | [address] | | | | | | [phone] | | | | | | | | | | | | Dayan Valverde, | | | | | | [address] | | | | | | [address] | | | | | | [place], [place] | | | | | | [address] | | | | | | [phone] | | | | | | | | | | | | Hugh Park MD | | | | | | [address] | | | | | | [place], | | | | | | [place] [address] | | | | | | [phone] | | | | | | | | | | | | Ann Mahmood MD | | | | | | [address] | | | | | | [address] | | | | | | [place], [place] | | | | | | [address] | | | | | | [phone] | | | | | | | [...] (s/p PCI x3, CABG x2) complicated by reed dipper erich systolic heart failure (EF 45%) due [...] excellent response. He will continue PT/OT at [facility] swing bed unit. Per orthopedic surgery, [...] I-CAPS 280-10-2 mg Cap Generic drug: antiox. no.49-ibnp8k-romrasn8w-ons-bch Take 1 capsule by mouth once daily. [...] (Non-Steroidal Anti-Inflammatory Drug) Renal Failure Avoid per Plate Mounter recommendations Sulfa (Sulfonamide Antibiotics) Rash Vital Signs [...] information for after-discharge care Discharge Destination IP [facility] . Specialty: Acute Care Hospital Contact information [address] [facility] [address] [place] Location: [facility] swing bed unit Appointments: Dr. Sherman on 07/23/18 at 10:40am. The discharge note was forwarded to the PCP for review. Discharging Physician: Ann Mahmood MD Suggested CPT: 28959 Discharge Management > 30 minute I spent more than 35 minutes rkxx-qs-rtmt with the patient of which 70% was [...] | | 0 | | | | no.76-kmba2a-fvjfcss8l-mwo-ygv | mouth once daily. | | | [...] negative pressure wound therapy dressing right knee [id number] Subjective: Doing ok overall. No CP/SOB. Tolerating [...] Plan to DC today to SNF in [place]. SNF can pull sutures at 2 weeks from operat kai date (June 27 is 2 weeks post op). Plan to return to Dr. Sherman' clinic 6 weeks an d also have ID clinic visit on that day. Appreciate [facility] and ID help in managing this [...] knee at that time. Elias Soriano MD [facility] Department of Orthopaedics and Rehabilitation PGY-1 Pager [phone] Ann Vang MD - 4:42 PM PDT [...] (s/p PCI x3, CABG x2) complicated by reed dipper erich systolic heart failure (EF 45%) due [...] mg daily Dispo: Anticipate discharge tomorrow to [facility] bed unit if renal function is s table Code status: Full code Diet: Regular diet Prophy: warfarin and heparin Ann Mahmood MD Strategy Execution Consultantmacaroni maker Clinical Hospitalist and Medicine Teaching Services [facility] [place] [place] Pager [phone] Suggested CPT: 11199 Subsequent Visit Detailed/High complexity 35 min I spent 37 minutes snzr-pq-mxjd with the patient of which 78% was [...] negative pressure wound therapy dressing right knee [id number] Subjective: Doing ok overall. No CP/SOB. Tolerating [...] to home as t ransporting back to [place] may present the patient and family undo hardship. 6. Dressings/Drains: Pulled yesterday? 7. Dispo/Discharge: Anticipate discharge to SNF in next 1-3 days if all criteria met. 8. Follow-up: Please call the clinic to make a follow up appointment in approximately 2 wee ks with ORTHO TRAUMA & FRACTURE, . AP and lateral of R knee at that time. Elias Soriano MD [facility] Department of Orthopaedics and Rehabilitation PGY-1 Pager [phone] atel, Tanvir - 06/16/2018 8:20 AM PDT INPATIENT INFECTIOUS DISEASE PROGRESS NOTE ID TEAM: B Patient: Júnior Mas PCP: Gilam Estrada MD Author: Tanvir Ayala Date of [...] three and a half hours away from [place]. At this time, we are unsur e of his ability to follow up with an OPAT clinic or if there is a provider near [place], where the patient resides. 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 This patient was staffed [facility] Dr. Villalobos, who agrees with the above assessment and plan unless otherwise documented. Tanvir Ayala [facility] P SUBJECTIVE Interval Events: No acute events overnight S: patient reports he is feeling well this morning. States he was able to meet with a clinical case manager and had decided to go [...] MD Division of Hospital Medicine [facility] Pager [phone] I spent more than 35 minutes ftrr-ml-oyin with the patient of which greater than [...] negative pressure wound therapy dressing right knee [id number] Subjective: Doing ok overall, not too much pain in right knee. Looking forward to getting back padder to home, "My wants to get back [...] to home as t ransporting back to [place] may present the patient and family undo hardship. 6. Dressings/Drains: Continue drain 7. Dispo/Discharge: Anticipate discharge to SNF in next 1-3 days if all criteria met. 8. Follow-up: Please call the clinic to make a follow up appointment in approximately 2 wee ks with ORTHO TRAUMA & FRACTURE, . AP and lateral of R knee at that time. Sisi Pablo [facility] Orthopaedic Trauma Surgery Pager [phone] Stephan Aguirre MD - 06/14/2018 8:59 AM [...] MD Division of Hospital Medicine [facility] [place] [place] Pager [phone] I spent more than 35 minutes vsiv-yw-tesm with the patient of which greater than [...] negative pressure wound therapy dressing right knee [id number] Subjective: Pain improving in R knee. Objective: [...] [facility] FRACTURE, . AP and lateral of R knee at that time. SEBAS PLEITEZ MD Pager [phone] Stephan Aguirre M D - 06/13/2018 9:51 [...] MD Division of Hospital Medicine [facility] Pager [phone] I spent more than 35 minutes gdrq-xv-autz with the patient of which greater than [...] negative pressure wound therapy dressing right knee [id number] Subjective: Painful in R knee today, but [...] a [facility] FRACTURE, . AP and lateral of R knee at that time. SEBAS PLEITEZ MD Pager [phone] Stephan Aguirre M D - 06/12/2018 1:24 [...] MD Division of Hospital Medicine [facility] Pager [phone] I spent more than 35 minutes gzmy-gp-pjqa with the patient of which greater than [...] total arthroplasty. Nika martinez was referred to [facility] for joint revision, and presented emergently to [facility] ED from [facility] ([place], [place]). Prior to presentation patient states that [...] IV (baseline cr 1.8-2.0), has had prior CT, no CVA. For his right lower extremity [...] 53%. -10/2015 [facility] with 90% ostial first diagonal, 85% ostial second diagonal, occluded stent of proximal RCA with left to right coronary collaterals, Patent SVG to LAD Ischemic Cardiomyopathy c/b Chronic Systolic Heart Failure and Diastolic Heart Failure -10/2015 [facility] with EF 45% and inferiobasal akinesia [...] po daily Carvedilol 12.5mg po daily -Y [place]-3 fatty acid 1,200mg po bid Acetaminophen-codeine po [...] the Social Hx as appropriate. Lives in [place], [place], Greater than 40 PYH tobacco use, [...] patellar osteomyelitis at [facility] with orthopedic sugery service consulting. [...] on going soft tisuse infection. -would consult pilot submersible for enhanced nutrition in post-operative period Non-Insulin [...] as unclear why patient was placed on buttermaker helper anticoagulation after prior provoked DVT. Dean Ugarte MD Clinical Hospitalist Services [facility] Pager [phone] 06/11/2018 10:44 PM [place] DEPARTMENT: Hosp ([facility]) - [id number] Place of Service: Date of Service: 07/25/2016 [facility] [id number] Modifiers:GC Resident Involved: No Service: PRIMARY HOSPITALIST Suggested CPT: 54641 Initial Visit Comp/High Complexity 70 min I [...] Antibiotics and Frequent lab draws Procedure location: Unit:[facility] Room: 14 Providers: Attending name: Attending physically present: No PICC Nurse name: Frances Fair RN BSN VAT Assisted by Christina March RN BSN VAT Pre-Procedure Consent: written consent obtained Consent given by: Patient Patient identity confirmed per protocol: Yes Team Pause: Immediatly prior to the procedure a pause per protocol was called. A pause veri fies correct patient, procedure, equipment, direct support professional caregiver and site/side marked as required. CLABSI Prevention [...] area Basilic vein. Cat heter lot number: [id number] with a length of 55 cm was [...] Service: 08/01/2015 Attending Surgeon: Ghassan Sherman MD Evaluation Engineer(s): mesfin thompson MD Preoperative Diagnosis: 1. right total knee prosthetic joint infection. Postoperative Diagnosis: same Procedures Performed: 1. Right knee arthrotomy with drainage for infection and polyethylene exchange 2. Application TINO disposible negative pressure wound therapy dressing right knee [id number] Anesthesia: General endotracheal anesthesia. Implants: excahgned alisha triathalon poly size 15, 13mm EBL: 50 Complications: None Specimens: 6 cultures, 1 path Indication For Procedure: Solo Alves was transferred to [facility] for sepsis after previosuly having been treated with a right total knee. He ws medically unstable and transferred to [facility]. An apsirate was positive. I [...] Patricia wrap. He was then awoken from [facility] and transported back to the postanesthesia care [...] as it stands. Ghassan Sherman MD, MPH Dental Practice Manager, [place] [address] [email or web address] docu mented in this encounter Consult [...] patient will need to follow up at [facility] on July 23 with orthopedics. During t hat time,we will cooridnate so that he may follow up with ID/OPAT in regards to his treatmen t. He will be discharged to [facility] to receive inpatient therapy and OPAT. 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 at [facility]. If patient is discharged fr om [...] primary team. This patient was staffed [facility] Dr. Villalobos, who agrees with the above assessment and plan unless otherwise documented. Tanvir Ayala [facility] P SUBJECTIVE Interval Events: No acute [...] continued via OPAT at [facility] Microbiology Data: Source Date Results Tissue [...] tablet allopurinol 300 mg oral tablet antiox.mv no.77-aykx9u-srmjrya7q-tsp-myi (I-CAPS) 280-10-2 mg oral capsule carvedilol 12.5 [...] Anticoagulation Clinic/Provider: New PCP Dr. Don Estrada ([phone]) Date INR Warfarin Dose 06/17/2018 1.78 2.5 [...] make recommendations. Please page clinical ph armacist (#[phone]) or call central inpatient pharmacy ([phone]) with questions. Rashard Jacob Pharm. D. Candidate Associated attestation - Mary Wade [facility] - 06/17/2018 11:14 AM PDT--I have reviewed the note written by retail pharmacy manager Rashard Jacob and I agree with the content and his plan for warfarin on this patient. Thank you, Mary Wade [facility]. Pager [phone] Mary Wade [facility] - 06/16/2018 1:26 PM PDTFormatting of this [...] Anticoagulation Clinic/Provider: new PCP Dr. Don Estrada ([phone]) Date INR Warfarin Dose 06/16/2018 1.51 2.5mg [...] make recommendations. Please page clinical ph armacist (#[phone]) or call central inpatient pharmacy ([phone]) with questions. Thank you for consult, Mary Wade [facility]. Pager [phone] Trish Blankenship MD - 10:46 AM PDTAssociated Order(s): IP CONSULT TO INFECTIOUS DISEASESFormatting of [facility] s note might be different from the original. [facility] Infectious Diseases OPAT Referral for Discharge Planning Team B: OPAT RN Jaye Winchester, Office: [phone], Pager: [phone] ID Diagnosis: PJI Antibiotic agent and dosing: [...] has an ortho appointment 10:40 sa day) Anesthesiologist Physician: For all patients requiring IV antibiotic therapy, please route your OPAT [place] n of Care Note (.CMOPAT) to [facility] "p OPAT/Infectious Diseases clinic" Pool at [...] and make recommendations. Please page clinical pharmacist (#[phone]) or call central inpatient pharmacy ([phone]) with questions. Subjective/Objective: Allergies: Nsaids (non-steroidal anti-inflammatory [...] by his new PCP Don Estrada MD ([phone]). 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 We will discuss [facility] OPAT vs outside providers. Formalized recs pending Recommendations were communicated directly to the primary team. This patient was staffed [facility] Dr. Villalobos, who agrees with the above assessment and plan unless otherwise documented. Thank you for the consult, we will follow along with you. Tanvir Ayala [facility] P SUBJECTIVE HPI: Júnior Mas is [...] arthritis. The patient was then transferred from [place] to [facility] for fu rther evaluation. While here, [...] 300 mg by mouth once daily. antiox. no.05-qrnt9g-pkahepo1v-yby-mcg (I-CAPS) 280-10-2 mg oral capsule Take 1 [...] mouth every Friday. Take 1 tablet by [facility] all other days of the week. Current [...] (Non-Steroidal Anti-Inflammatory Drug) Renal Failure Avoid per Plate Mounter recommendations Sulfa (Sulfonamide Antibiotics) Rash Social History [...] Ishaan Villalobos MD [facility], Pharm[facility] - 06/14/2018 7:36 PM PDT [...] lab draw. - Please page clinical pharmacist (#[phone]) or call central inpatient pharmacy ([phone]) wit h questions. Subjective/Objective: Júnior Mas, a [...] CULTURE, TISSUE-PROSTHETIC JOINT INFECTION AER AND MARIELOS [[id number]] (Abnormal) [facility] Collec dilcia: 06/12/18 1354 Lab Status: Preliminary result Specimen: Tissue from Knee - right Updated: 06/14/18 1344 CULTURE RESULT [facility] Staphylococcus epidermidis (A) Ref Range: Narrative: Culture Report: Staphylococcus epidermidis Gram Stain: No squamous epithelial cells Rare polymorphonuclear cells No organisms seen Thank you, Ramon Mercado, PharmD, [facility] Clinical Pharmacist elphine, Torey Adame [...] and make recommendations. Please page clinical pharmacist (#[phone]) or call central inpatient pharmacy ([phone]) with questions. Subjective/Objective: Júnior Mas, a 78 [...] by his new PCP Don Estrada MD ([phone]). The patient reports Dr Estrada wanted him [...] for the consult, Evgeny Akers PharmD, [facility] Pager [phone] Evgeny Robles PharmD - 06/13/2018 8:41 AM [...] on stable regimen. Please page clinical pharmacist (#[phone]) or call central inpatient pharmacy ([phone]) with q uestions. Subjective/Objective: Indication: infectious disorder of joint Therapy start date: 06/12/18 Anticipated duration: TBD Goal trough: ~15 mg/L Urine output: unavailable for most of the past 24 hours Renal function: stable , current SCr 1.66 (Baseline SCr 1.6-1.8) Actual body weight: Weight: 86.7 kg (191 lb 1.6 oz) (06/13/18 8797) Pertinent cultures/sensitivities: 06/12/18 blood and tissue cultures - in process Thank you for the consult, Evgeny Akers PharmD, [facility] Pager [phone] Harley Echols MD - 06/11/2018 7:27 PM PDT [facility] DEPARTMENT OF ORTHOPAEDICS & REHABILITATION HISTORY & PHYSICAL EXAMINATION Patient: Júnior Mas Encounter Date: 06/11/2018 Attending Physician: Maral Leon MD HISTORY OF PRESENT ILLNESS: Júnior Mas is a 78 year old male with CHF, gout, CAD with prior CT, DMII, HTN who presents with 2 weeks of progressive right knee pain, stiffness, fevers and malaise. He had his tota l knee arthroplasty done in [address] Hurst at [facility] for advance d DJD. He's had [...] culture s pending. He was transferred to [facility] for further management of a septic prosthetic knee. Implants: [place] Triathlon Total Knee System 1. Size 4 [...] consented and added on to the [place] [facility] edu. Admitted to hospitalist service; keep [...] & FRACTURE, The orthopaedics consult pager is #[phone], please call with questions. Harley Weaver MD Resident Department of Orthopaedics Pager [phone] [facility] [place] [place] Department of Orthopaedics & Rehabilitation [address] Mail Code: OP31 [facility] [phone] Associated attestation - Ghassan Sherman MD - [...] call me for questions. GHASSAN SHERMAN MD [facility] [address] [id number]/[id number] [place] [address] documented in this encounter ED [...] (H) 0.70 - 1.30 mg/dL EGFR - [place] 39 (L) >60 mL/min EGFR NON -[place] 32 (L) >60 mL/min SODIUM, PLASMA (LAB) [...] total knee replacement in 2012 done in [facility]. Right k nee also became more swollen at that time, though without any warmth or redness. Pain worse with any movement and better at rest. He was evaluated by his PCP and started on coumadin for question of DVT, though RLE ultraso und was negative. Seen by Dr. René Yen (orthopedics) in [place] 06/09 with the following labs. - WBC [...] 06/11/2018 Heart block 06/11/2018 Pacemaker-dependent due to [place] cardiac rhythm insufficient to support life 8 [...] exam, work-up with his orthopedic surgeon and [place], he has a right knee prosthetic joint infection. Laboratory and imaging results including ESR, CRP were reviewed and interpreted, and notabl e for the following: - significantly elevated ESR and CRP - arthrocentesis at [place] with 79,000 WBCs The patient received the following in the emergency department (including medications, inte rventions, consultations, and reassessments): - orthopedics consultation, plan for [place] tomorrow Given this, patient required admission for further care. We spoke to the [facility] ist service, who accepted patient to their [...] Information: Patient discharging to swing bed at [facility] in [facility]. Reviewed DC to SNF AVS with patient and family, all questions answered, reinforced fo llow up appointments per AVS. PICC line in [place] with dressing CDI at discharge. TINO dressing CDI with green light flashing at discharge. Telephone report given to FLY Vanegas at [facility] facility at 1125. Transportation provided by family in private vehicle. Patient dischar taye in stable condition with all belongings. Discharge Nurse: PADMINI MAGAÑA RN andoff - Galina Varela RN - 06/16/2018 11:09 PM PDTNursing Handoff Patient Daily Goal: rest (06/16/18 4745) Patient Specific Preferences: When asked if pt moves while he is in a recliner, he states " no, once I'm there I stay", education provided on importance of repositioning for pressure i njury prevention even in recliner chair. (06/15/18 6104) [facility] IP NURSE HANDOFF: [facility] [...] njury prevention even in recliner chair. (06/15/18 8801) [facility] IP NURSE HANDOFF: [facility] hospital course [...] Met Case Management OPAT Plan of Care: [facility] hospital discharge date: 06/17/2018 This patient will be followed for all post hospital OPAT care needs by: [facility] OPAT/Infectiou s Diseases Clinic, ; IV antibiotic orders were provided to: Other vendor facility, Name: [facility] Swi ng Bed, , , Attn: [...] call light/urinal and belongings all in reach. [facility] BASIC MOBILITY Difficulty turning over in [...] to do/total assistance - Total/Dependen t Assist [facility] Basic Mobility Total Score 14 Interpretation of [facility] Short Form - Basic Mobility: CMS [...] recommendations: to be determined . [place] [id number] andoff - Emily Covarrubias RN - 06/16/2018 [...] prevention even in recliner chair. (06/15/18 0953) [facility] IP NURSE HANDOFF: [facility] hospital course [...] As evidenced by: Poor intake tonight from 8460-1082 despite encouragement. He states that his water "goes stale so fast and doesn't taste good anymore" so it was refreshed frequently. Low UO continu es. Had CBG of 59 on 06/14 am. Júnoir stated nothing sounds good to eat or [...] njury prevention even in recliner chair. (06/15/18 7176) [facility] IP NURSE HANDOFF: [facility] hospital course [...] to SNF in 1-2 days lan of [facility] Umm Joy - 06/15/2018 1:02 PM [...] rehab and student observer Current unit: 9k [facility] Hospital Course: Júnior Mas is a [...] cell phone and water all in reach. [facility] BASIC MOBILITY Difficulty turning over in [...] to do/total assistance - Total/Dependen t Assist [facility] Basic Mobility Total Score 9 Interpretation of [facility] Short Form - Basic Mobility: CMS [...] Equipment recommendations: to be determined [place] [id number] andoff - Maria Dolores Gurrola RN - [...] njury prevention even in recliner chair. (06/15/18 5897) [facility] IP NURSE HANDOFF: [facility] [...] nutrient distribution type or amount Nutrition Assessment: radio journalist received. Pt does not like food here, [...] Mendez, MS, RD, LD, CNSC Pager #: [phone] Comments: Júnior Mas is a 78 y.o. [...] 2013 Total Knee Replacement who presents to blue [...] 29.04 kg/m2 AdjBW: 71.5 kg Estimated needs: 9503-1176 kcal/day (25-30 kcal/kg AdjBW); 72-107 g protein/day (1-1.5 g/kg AdjBW) Catrachita - Justus Zapata, RN - 06/15/2018 3:49 AM PDTNursing Handoff [facility] IP NURSE HANDOFF: [facility] [...] RN - 06/14/2018 5:38 PM PDTNursing Handoff [facility] IP NURSE HANDOFF: [facility] course [...] encourage meals. Monitor UOP- no ouput from 2795-3260. CHS notified- BMS ordered. encourage fluids. MOBILITY: [...] RN - 06/14/2018 2:13 PM PDTNursing Handoff [facility] IP NURSE HANDOFF: [facility] course [...] PM PDT Physical Therapy Evaluation and Treatment [id number] J[facility]NIOR MAS [facility] Hospital Day: 3 Date of : 1940 [...] than therapist and pt: patient and son; DIRECTOR OF DANCE surjit hylton with mobility portion of session. [...] going down ramp) Vision/Hearing: hearing aids (very [place]; states he refuses hearing aids) Patient / Family Goal: patient will not state; patient : For patient to return home. Language: [place]. Barriers: Very [place], not fully attentive. Pain: "lots"; refuses to [...] focus on m idline. PT, DIRECTOR OF DANCE and patient encourage patient to get up to a chair, with assistance, patient r efused 4 times. Outcome Measure(s): 5 Time Sit to Stand: unable. >15 seconds predicts recurrent fallers [facility] BASIC MOBILITY Difficulty turning over in [...] to do/total assistance - Total/Dependen t Assist [facility] Basic Mobility Total Score 9 Interpretation of [facility] Short Form - Basic Mobility: CMS [...] session: Patient supine in bed. DIRECTOR OF DANCE attending to patient. ASSESSMENT: Patient presents s/p [...] Patient will score 20 >/= 24/24 on AM-[facility] Basic Mobility outcomes measure upon discharge. [...] RN - 06/14/2018 2:37 AM PDTNursing Handoff [facility] IP NURSE HANDOFF: [facility] course [...] RN - 06/13/2018 1:32 AM PDTNursing Handoff [facility] IP NURSE HANDOFF: [facility] course [...] information: see anesthesia record Functional Epidural: No TUNNEL FORM PLACING SUPERVISOR: No Respiratory: RR: 17, O2 Sat: 98 %, O2 Delivery: Nasal cannula Breath Sounds: WDL Except (SEUN - not diagnosed) TAYLOR: LLL: RUL: RLL: SEUN No Comment: none Cardiac: BP: 113/47 HR: 94 GI: Nausea/Vomiting Status: No Signs/Symptoms: Interventions: Assessment: Comments: toleratingPO : Last void: at 1900 Contact Name: Beth Contact Number: [phone] Family contacted: Yes Comment:updated family Belongings:none in [...] in the provider note. Sandra Valle MD [facility] [employer] ransfer Note - Arnie Busby ANP - 06/11/2018 3:19 PM PDT Call from Dr. Eric Yen, [facility] Pt with hx of CHF with significant fluid retention, right knee replacement, chronic leg ulc ers has infected total knee. Presented to clinic today with right knee swelling and pain. Right knee aspirate today: 79k white cells Markedly elevated CRP and sed rate Temp 99.4, vitals stable and normal Spoke with [facility] orthopedic surgeon Dr. Leon who advised transfer to [facility] ED Pt coming now [facility] Rita Alex - 06/11/2018 3:19 PM PDTPt with post procedure infection, R total knee. Connected ref with ROCAEL Sanders. [facility] Rita Barker - 06/11/2018 2:09 PM PDTRef previously consulted [facility] ortho Dr. Maral Leon who advised PT to come to [facility] ED. Advised Dr. Yen to call [...] organism | | | | | | ([facility]) | | + +--------+ + [...] organism | | | | | | ([facility]) | | + +--------+ + [...] organism | | | | | | ([facility]) | | + +--------+ + [...] - DARSHANA | [address] | [place], [place] | | | KIERRA POINT OF CARE | [address] | [address] | | | TESTS | | | [...] [facility] | [address] | [place] [address] | | | SERVICES, CORE | PARK [...] | | | LABORATORY | | | [place] | | | SERVICES, | | | [...] the MDRD equation recommended by the | [facility] | | National Kidney Disease Education [...] | + + + + + | [facility] | [address] [facility] | [place] [address] | | | SERVICES, CORE | MARY [...] [facility] | [address] | [place], [place] | | | OPHELIA LOZADA OF CARE | [facility] | [address] | | | TESTS | | | [...] [facility] | [address] | [place], [place] | | | KIERRA POINT OF CARE | [address] | [address] | | | TESTS | | | [...] Note | + + | Service Account, myParcelDelivery In Interface - 06/16/2018 4:44 PM PDT [...] necessary, edited the report. I agree with [facility] report as now presented. | | | [...] draws Procedure location: | | | Unit:9 [facility] Room: 14 Providers: Attending name: Attending | | | physically present: No PICC Nurse name: Frances Fair INWARD TOLL OPERATOR | | | VAT Assisted by Christina March RN BSN VAT Pre-Procedure Consent: | | | written consent obtained Consent given by: Patient Patient | | | identity confirmed per protocol: Yes Team Pause: Immediatly prior to | | | the procedure a pause per protocol was called. A pause verifies | | | correct patient, procedure, equipment, direct support professional caregiver and site/side | | | marked as [...] | area Basilic vein. Catheter lot number: [id number] with a length of 55 | | [...] - BERNAAM | [address] | [place], [place] | | | KIERRA POINT OF CARE | [address] | [address] | | | TESTS | | | [...] [facility] | [address] | [place] [address] | | | SERVICES, CORE | PARK [...] | | | LABORATORY | | | [place] | | | SERVICES, | | | [...] | + + + + + | [facility] | [address] | [place] [address] | | | SERVICES, KAREEM | MARY [...] (H) | 70 - 99 mg/dL | [facility] - | | | GLUCOSE, | [...] [facility] | [address] | [place], [place] | | | OPHELIA LOZADA OF FUAD | [facility] | [address] | | | TESTS | | | [...] [place] | [address] | [place], [place] | | | OPHELIA LOZADA OF FUAD | [address] | [address] | | | TESTS | | | [...] DARSHANA | [address] | [place], [place] | | | KIERRA [place] OF [facility] | [facility] | [address] | | | TESTS | | | [...] | + + + + + | [facility] | [address] | [place] [address] | | | SERVICES, CORE | MARY [...] | | | LABORATORY | | | [place] | | | SERVICES, | | | [...] | + + + + + | [facility] | [address] | [place] [address] | | | SERVICES, CORE | PARK [...] | + + + + + | [facility] | [address] | [place] [address] | | | SERVICES, CORE | PARK [...] [facility] | [address] | [place] [address] | | | KAREEM FINCH | MARY [...] [facility] | [address] | [place] [address] | | | SERVICES, CORE | PARK [...] | + + + + + | [facility] | [address] | [place] [address] | | | SERVICES, CORE | MARY [...] - DARSHANA | [address] | [place], [place] | | | IONIA POINT OF [facility] | [address] | [address] | | | TESTS | | | [...] | | | LABORATORY | | | [place] | | | SERVICES, | | | [...] is appropriate. | LABORATORY | | Page [phone] or [phone] with questions. Thank you. GFR is | [...] | + + + + + | [facility] | [address] | [place] [address] | | | SERVICES, CORE | PARK [...] | + + + + + | [facility] | [address] | [place] [address] | | | SERVICES, CORE | PARK [...] is appropriate. | LABORATORY | | Page [phone] or call [phone] with questions. Thank you. | SERVICES, CORE | + + + + + + + + | Performing | Address | City/State/Zipcode | Phone Number | | Organization | | | | + + + + + | [facility] | [address] | [place] [address] | | | SERVICES, CORE | MARY [...] (H) | 70 - 99 mg/dL | [facility] - | | | GLUCOSE, | [...] [place] | [address] | [place], [place] | | | OPHELIA LOZADA OF CARE | [address] | [address] | | | TESTS | | | [...] [place] | [address] | [place], [place] | | | OPHELIA LOZADA OF CARE | [address] | [address] | | | TESTS | | | [...] [facility] | [address] | [place] [address] | | | SERVICES, CORE | PARK [...] | | | LABORATORY | | | [place] | | | SERVICES, | | | [...] | + + + + + | [facility] | [address] | [place] [address] | | | SERVICES, CORE | PARK [...] [place] | [address] | [place], [place] | | | OPHELIA LOZADA OF FUAD | [facility] | [address] | | | TESTS | | | [...] BERNAAM | [address] | [place], [place] | | | OPHELIA LOZADA OF CARE | [facility] | [address] | | | TESTS | | | [...] (H) | 70 - 99 mg/dL | [facility] - | | | GLUCOSE, | [...] [place] | [address] | [place], [place] | | | OPHELIA LOZADA OF CARE | [address] | [address] | | | TESTS | | | [...] + + | ECG | Borderline prolonged [place] | | [facility] | | | [...] DEPT OF | [address] | [place], [place] | | | CARDIOLOGY | [address] | [address] | | + + + + + [...] + + + | [facility] | [address] | [place], [place] | | | KIERRA POINT OF CARE | [address] | [address] | | | TESTS | | | [...] | + + + + + | [facility] | [address] | [place] [address] | | | SERVICES, CORE | PARK [...] | | | LABORATORY | | | [place] | | | SERVICES, | | | [...] | + + + + + | [facility] | [address] | [place] [address] | | | SERVICES, CORE | [address] | | | + + + + + MAGNESIUM, PLASMA (06/12/2018 10:24 PM PDT) + +-------+ + + + | Component | Value | Ref Range | Performed | Pathologist | | | | | At | Signature | + +-------+ + + + | MAGNESIUM,P | 1.8 | 1.6 - 2.6 mg/dL | [facility] | | | LASMA | | | [...] [facility] | [address] | [place] [address] | | | SERVICES, KAREEM | MARY [...] | | | LABORATORY | | | [place] | | | SERVICES, | | | [...] the MDRD equation recommended by the | [facility] | | National Kidney Disease Education Program. [...] [facility] | [address] | [place] [address] | | | SERVICES, CORE | MARY [...] | + + + + + | [facility] | [address] | [place] [address] | | | SERVICES, | [address] [...] [facility] | [address] | [place] [address] | | | SERVICES, | [address] [...] [facility] | [address] | [place] [address] | | | SERVICES, CORE | PARK [...] [facility] | [address] | [place] [address] | | | SERVICES, | [address] [...] | + + + + + | [facility] | [address] | [place] [address] | | | KAREEM FINCH | MARY [...] D[facility]SHANA | [address] | [place], [place] | | | KIERRA POINT OF CARE | [address] | [address] | | | TESTS | | | [...] | | | LABORATORY | | | [place] | | | SERVICES, | | | [...] [facility] | [address] | [place] [address] | | | SERVICES, CORE | PARK [...] | + + + + + | [facility] | [address] | [place] [address] | | | SERVICES, KAREEM | PARK [...] + | [facility] | [address] [facility] | [place], [place] | | | KIERRA [place] [facility] | [address] | [address] | | | TESTS | | | | + + + + + PROCEDURE NOTE (06/12/2018 2:57 PM PDT) + + + | Narrative | Performed At | + + + | Ghassan Sherman MD 06/17/2018 2:15 PM Date of Service: | | | 08/01/2015 Attending Surgeon: Ghassan Sherman MD | | | Evaluation Engineer(s): mesfin thompson MD Preoperative Diagnosis: 1. 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 Postoperative Diagnosis: | | | same Procedures Performed: 1. Right knee arthrotomy with | | | drainage for infection and polyethylene exchange 2. Application | | | TINO disposible negative pressure wound therapy dressing right knee | | | [id number] Anesthesia: General endotracheal anesthesia. | | | Implants: excahgned alisha triathalon poly size 15, 13mm EBL: 50 | | | Complications: None Specimens: 6 cultures, 1 path Indication | | | For Procedure: Solo Alves was transferred to [facility] for sepsis | | | after [...] | | stands. Ghassan Sherman MD, MPH Dental Practice Manager, Dept. of | | | Orthopaedics [facility] [address] | | | Maricel [address]. [address] [place] [address] | | | [email or web address] | | + + + CAPILLARY BLOOD GLUCOSE (NO CHG), POC (06/12/2018 2:42 PM PDT) + +---------+ + + + | Component | Value | Ref Range | Performed | Pathologist | | | | | At | Signature | + +---------+ + + + | BLOOD | 134 (H) | 70 - 99 mg/dL | [facility] - | | | GLUCOSE, | [...] [facility] | [address] | [place], [place] | | | OPHELIA LOZADA OF CARE | [address] | [address] | | | TESTS | | | [...] D[facility]NA | [address] | [place], [place] | | | OPHELIA LOZADA OF FUAD | [address] | [address] | | | TESTS | | | [...] + | [facility] | [address] | [place] [address] | | | [place] | | | [...] - | | | | | | [facility] | | + + + + [...] Propionibacterium due to growth of other | [place] | | organsims. Gram Stain: No squamous epithelial cells No | | | polymorphonuclear cells No organisms seen | | + + + + + + + + | Performing | Address | City/State/Zipcode | Phone Number | | Organization | | | | + + + + + | [facility] | [address] | [place] [address] | | | [place] | | | [...] - | | | | | | [place] | | + + + + + [...] + | [facility] - | [address] | [place] [address] | | | [place] | | | | + + + [...] - | | | | | | [facility] | | + + + + [...] | + + + + + | [facility] - | [address] | [place] [address] | | | [place] | | | | + + + [...] | + + + + + | [facility] - | [address] | [place] [address] | | | [place] | | | | + + + [...] | | | | | | number [id number].[phone]. Knee, | | | | | | [...] + + + | [facility] | [address] | [place] [address] | | | PATHOLOGY | [address] [...] + + | Staphylococcus | Vancomycin | SUSCEPTIBILITY-YK | Sensitive | | epidermidis | | | | + + + + + + + + + + | Performing | Address | City/State/Zipcode | Phone Number | | Organization | | | | + + + + + | [facility] - | [address] | [place] [address] | | | [place] | | | | + + + [...] [facility] | [address] | [place], [place] | | | OPHELIA LOZADA OF CARE | [address] | [address] | | | TESTS | | | [...] [facility] | [address] | [place], [place] | | | KIERRA POINT OF CARE | [address] | [address] | | | TESTS | | | [...] + + | [facility] | [address] [facility] [address] | [place], [place] | | | KIERRA POINT OF [facility] | [address] | [address] | | | TESTS | | | [...] [facility] | [address] | [place] [address] | | | SERVICES, KAREEM | PARK [...] | + + + + + | [facility] | [address] | [place] [address] | | | SERVICES, CORE | MARY [...] | + + + + + | [facility] | [address] | [place] [address] | | | SERVICES, CORE | MARY [...] [facility] | [address] | [place] [address] | | | SERVICES, CORE | PARK [...] | + + + + + | [facility] | [address] | [place] [address] | | | SERVICES, | [address] [...] | + + + + + | [facility] | [address] [facility] | [place] [address] | | | SERVICES, CORE | MARY [...] | | | LABORATORY | | | [place] | | | SERVICES, | | | [...] | + + + + + | [facility] | [address] [facility] | [place] [address] | | | SERVICES, CORE | MARY [...] | + + + + + | [facility] | [address] [facility] | [place] [address] | | | KAREEM FINCH | MARY [...] | + + + + + | [facility] | [address] | [place] [address] | | | SERVICES, KAREEM | MARY [...] | + + + + + | [facility] | [address] | [place] [address] | | | SERVICES, CORE | PARK [...] | + + + + + | [facility] | [address] | [place] [address] | | | SERVICES, CORE | [address] | | | + + + + + ED INFORMATION EXCHANGE (06/11/2018 6:04 PM PDT) + + | Specimen | + + | | + + + + + | Narrative | Performed At | + + + | [id number] This patient has registered at the [place] | [facility] | | [facility] Emergency Department For more | MEDICAL | | information visit: | TECHNOLOGIES | | [email or web address] | | | 35ffec Security Events No [...] Complaint Aug | | | 2017 [facility] [place] Emergency | | | Emergency 10,800. REF Recent Inpatient Visit | | | Summary No recorded inpatient visits. E.D. Visit Count (12 mo.) | | | Facility Visits [facility] 1 Total 1 | | | [...] | | facilities for additional information. 2018 [email or web address] | | | [employer] - [place], [place] - | | | [email or web address] | | + + + + + | Procedure Note | + + | Service Account, Rtf Results Inbound - 06/11/2018 6:06 PM PDT Formatting of this | | note might be different from the original.DANIEL?NOTIFICATION?06/11/2018 18:04?[place], | | JÚNIOR? patient has registered at the [facility] | | [place] Emergency Department For more information visit: | | [email or web address] | | EventsNo recent Security Events currently on fileED Care GuidelinesThere are currently | | no ED Care Guidelines in DNAIEL for this patient. Please check your facility's medical | | records system.Recent Emergency Department Visit SummaryAdmit Date Facility [facility] | | Type Major Type Diagnoses or Chief Complaint Jun 11, 2018 [facility] | | [facility] [place] Emergency Emergency 10,800. REF Recent Inpatient Visit | | SummaryNo recorded inpatient visits. E.D. Visit Count (12 mo.)Facility Visits [place] | | [facility] 1 Total 1 Note: Visits indicate [...] aforementioned facilities for additional information. ? 2018 [email or web address] | | [employer] - [place], [place] - [email or web address] | |Facility Visits | |[facility] 1 | |Total 1 | |Note: [...] facilities for additional information. | |? 2018 [employer] - [place], [place] - [email or web address] | + + + + + + + | Performing | Address | City/State/Zipcode | Phone Number | | Organization | | | | + + + + + | [facility] | [address] | [place], [place] | [phone] | | TECHNOLOGIES | [address] | [address] | | + + + + + [...] | + + | Pacemaker-dependent due to [place] cardiac rhythm insufficient to support life | [...] mg, intramuscular, | | | NEEDED, Starting [facility] 06/11/18 at | | | 2306, [...]
--- OUTSIDE RECORDS SUMMARY | ~2020-07-16 | XMS | Encounter Summary ---
Demographics + + + | Address | [address] | | | [place] [address] | + + + | Home Phone [...] Providers + +------+ + | Care Erp Implementation Consultant Name | Role | Phone | [...] | | | | Loop Physician's | [place], [place] | | | | | [place], [facility] floor | [address] | | | | | [place], [place] | [phone] | | | | | [address] | | | | | | [phone] | | | +--------+--------+ + + + [...]
--- OUTSIDE RECORDS SUMMARY | ~2020-07-16 | XMS | Encounter Summary ---
Demographics + + + | Address | [address] | | | [place] [address] | + + + | Home Phone [...] Providers + +------+ + | Care Healthcare Consulting Manager Name | Role | Phone | + +------+ + PCP | Unavailable | + +------+ + Encounter Details +--------+ + + + + | Date | Type | Department | Care Team | Description | +--------+ + + + + | 05/18/ | Hospital | [facility] | Olaf Nicole | | | 1998 - | Encounter | [facility] | MD [address] | | | | | CARDIAC TRANSPLANT | [address] | | | 05/19/ | | [address] | [place] [address] | | | 2000 | | [place] | [phone] | | | | | [address] | | | | | | [phone] | | | +--------+ + + + [...]
--- OUTSIDE RECORDS SUMMARY | ~2020-07-16 | XMS | Encounter Summary ---
Demographics + + + | Address | [address] | | | [place] [address] | + + + | Home Phone [...] Providers + +------+ + | Care Screen Printer Name | Role | Phone | + +------+ + PCP | Unavailable | + +------+ + Encounter Details +--------+ + + + + | Date | Type | Department | Care Team | Description | +--------+ + + + + | 05/18/ | Hospital | [facility] | Olaf Nicole | | | 1998 - | Encounter | [facility] | MD [address] | | | | | CARDIAC TRANSPLANT | [address] | | | 05/19/ | | [address] | [place] [address] | | | 2000 | | [place] | [phone] | | | | | [address] | | | | | | [phone] | | | +--------+ + + + [...]
--- OUTSIDE RECORDS SUMMARY | ~2020-07-16 | XMS | Encounter Summary ---
Demographics + + + | Address | [address] | | | [place] [address] | + + + | Home Phone [...] Providers + +------+ + | Care Band Head Saw Operator Name | Role | [...] | | | Loop Physician's | [place], [place] | | | | | [place], [facility] floor | [address] | | | | | [place], [place] | [phone] | | | | | [address] | | | | | | [phone] | | | +--------+--------+ + + + [...]
--- OUTSIDE RECORDS SUMMARY | ~2020-07-16 | XMS | Encounter Summary ---
Demographics + + + | Address | [address] | | | [place] [address] | + + + | Home Phone [...] Team Providers + +------+ + | Care Dairy Grazer Name | Role | Phone | + +------+ + PCP | Unavailable | + +------+ + Encounter Details +--------+ + + + + | Date | Type | Department | Care Team | Description | +--------+ + + + + | 05/02/ | [facility] | Olaf Nicole | | | 2000 - | Encounter | [facility] | MD Amy [address] | | | | | CARDIAC TRANSPLANT | [address] | | | 05/03/ | | [address] | [place] [address] | | | 2000 | | [place] | [phone] | | | | | [address] | | | | | | [phone] | | | +--------+ + + + [...]
--- OUTSIDE RECORDS SUMMARY | ~2020-07-16 | XMS | Encounter Summary ---
Demographics + + + | Address | [address] | | | [place] [address] | + + + | Home Phone | | + + + | Preferred Language | Unknown | + + + | Marital Status | | + + + | Sikh Affiliation | 1077 | + + + | Race | White | + + + | Ethnic Group | Not or | + + + Author + + + | Author | [facility] | | | and [place] | + + + | Organization | [facility] | | | and [...] Providers + +------+ + | Care Forestry And Wildlife Manager Name | Role | Phone | [...] Provider Unknown | | | | | [place] | | | | | | [address] | (Fax) | | | | | [phone] | | | +--------+ + + + [...]
--- OUTSIDE RECORDS SUMMARY | ~2020-07-16 | XMS | Encounter Summary ---
Demographics + + + | Address | [address] | | | [place] [address] | + + + | Home Phone [...] Providers + +------+ + | Care Manager Cardiac Name | Role | Phone | + [...] | | | | | | | [place] | | | | | | | ESOPHAGOGAST | | | | | | | RODUODENOSCO | | | | | | | PY TRANSORAL | | | | | | | DIAGNOSTIC | | | | | | | [place] EGD | | | | | | | TRANSORAL | | | | | | | BIOPSY | | | | | | | SINGLE/MULTI | | | | | | | PLE IL EGD | | | | | | | BALLOON | | | | | | | DILATION | | | | | | | ESOPHAGUS | | | | | | | <30 MM DIAM | | | | | | | [place] | | | | | | | [...] + + | 02/10/ | Surgery | [facility] | Willow Colin MD | EGD WITH DILITATION | | 2019 | | MED CTR [facility] INTRA OP | [address] | | | | | [address] | [address], | | | | | [place] | [place] [address] | | | | | [address] | [phone] | | | | | [phone] | | | +--------+---------+ + + + [...] You can't be awakened Date Last Reviewed: 08/13/201619997632-0258 [employer]. [address] [place] [address]. All [facility] ts reserved. This information is not intended [...] you take. This includes prescription medicines, o kgk-kll-adougip medicines, herbs, vitamins, and other supplements. Be [...] icine to relax you. The procedure takes [id number]. It does not cause trouble breath ing. [...] Black, tarry, or bloodystools Date Last Reviewed: 04/26/201619999295-0132 [employer]. [address] [place] [address], [place] [address]. All righ ts reserved. This information is [...] prescription medicines Herbs, vitamins, and other supplements Nzqh-ofm-rbwcvku medicines such as aspirin or ibuprofen Street [...] heart or lung disease Date Last Reviewed: 05/27/201719993545-4692 [employer]. [address] [place] [address]. All righ ts reserved. This information is [...] signed by: Willow Colin MD, 02/10/2019 13:00 [facility] by Willow Colin MD at [...] + + | [address] | [address] [facility] [address] | [place] [address] | [phone] | | [place] | | | [...] [address] | [place] | [phone] | | [facility] | | [address] | | | - LABORATORY | | [...] technical and professional components were performed by [employer] | | | [place], [address] [place] [address] | | | (Director Non Profit: Don Morrell D.O.; [facility]#: [id number]). | | | Diagnostician: Gely Cerna MD [...]
--- OUTSIDE RECORDS SUMMARY | ~2020-07-16 | XMS | Encounter Summary ---
Demographics + + + | Address | [address] | | | [place] [address] | + + + | Home Phone [...] Providers + +------+ + | Care Psychologist Experimental Name | Role | Phone | + [...] | | | [address] | [address] | orders) | | | | [address] [facility] | [place], [place] | | | | | [place], [facility] floor | [address] | | | | | [place], [place] | [phone] | | | | | [phone] | | | | | | [phone] | | | +--------+ + + + [...]
[~2020-07-16 08:23] MED LIST changes: -NIACIN500 M1 PO; -VITAMIN D3125 MC2 PO; +VITAMIN D350 MC3 PO; +ZITHROMAX250 MG PO
--- OUTSIDE RECORDS SUMMARY | 2020-07-16 08:26 | XMS ---
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 Alexis VISIT COUNT ([address] [facility] TOTAL 5 NOTE: Visits indicate total known visits. ED/UCC VISIT TRACKING (12 MO.) 07/16/2020 08:24 [facility] [place] TYPE: Emergency COMPLAINT: - LOW BLOOD SUGAR 06/30/2020 12:48 [facility] [place] TYPE: Emergency COMPLAINT: - FEVER, COUGH, SOB, DEHYDRATED DIAGNOSES: - COVID-19 - Hypertensive heart disease with heart failure - Chest pain, unspecified - Cough - Shortness of breath - Dehydration - Old myocardial infarction - Type 2 diabetes mellitus without complications - Heart failure, unspecified - Pneumonia, unspecified organism 06/27/2020 20:50 [facility] [place] TYPE: Emergency COMPLAINT: - POSSIBLE COVID DIAGNOSES: - COVID-19 - Hypertensive heart disease with heart failure - Personal history of nicotine dependence - Weakness - Old myocardial infarction - Heart failure, unspecified - Type 2 diabetes mellitus without complications - Other custodial (current) drug therapy 06/19/2020 18:29 [facility] [place] TYPE: Emergency COMPLAINT: - SOB/FEVER DIAGNOSES: - Old myocardial infarction - Other remote computer terminal operator (current) drug therapy - Heart failure, unspecified [...] - Personal history of nicotine dependence - detention (current) use of systemic steroids - 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 - Personal history of other diseases of the circulatory system - Chronic kidney disease, unspecified - Unspecified staphylococcus as the cause of diseases classifie - ferry terminal supervisor (current) use of antibiotics - Heart failure, unspecified - Old myocardial infarction - Unspecified osteoarthritis, unspecified site - Hypertensive heart and chronic kidney disease with heart fail - Other remote computer terminal operator (current) drug therapy - Urinary tract infection, site not specified - Atherosclerotic heart disease of [place] coronary artery witho - Type 2 diabetes mellitus with diabetic chronic kidney disease - Allergy status to sulfonamides status - Infection and inflammatory reaction due to internal right kne [email or web address]
--- NOTE | 2020-07-16 16:40 | NUR ---
NEW ADMIT TO THE FLOOR, PT ALERT AND ORIENTED X4, VSS, INITIAL ASSESSMENT COMPLETED. PT ORIENTED TO ROOM AND CALL LIGHT. PT NOTED TO BE FEBRILE, 101.7F. DR SMALLS MADE AWARE AT THIS TIME, VERBALIZED PLAN TO ADMINISTER TYLENOL FOR THIS. TORB FROM DR SMALLS TO STOP D5 FLUIDS. REPORTED TO DR SMALLS THAT PTS HR ELEVATED TO 132BPM WHILE UP ON COMMODE. DR SMALLS REQUESTING R LOWER LEG DRESSING TO BE REMOVED WHICH WAS PRESENT UPON ADMIT. IV D5 STOPPED AT THIS TIME. D5 1/2 NS W 20K STILL INFUSING.
[2020-07-16] MEDS ORDERED: HYDROXYCHLOROQ200 MG PO (16:44)
--- NOTE | 2020-07-16 17:21 | NUR ---
Tylenol 650mg po admin for elevated temp 101.7f. Dinner ordered at this time. Pt reports he has no needs. Personal supplies and call light within reach. Bed alarm intact. Pt verbalized he will call staff prior to getting up out of bed.
--- NOTE | 2020-07-16 18:01 | NUR ---
Entered pt room in proper PPE following protocol. Brought pt his dinner tray. Checked his blood glucose (110). Repositioned pt in bed. Pt reports still feeling constipated and unable to have BM. Pt sitting up in bed, side table and dinner tray above his lap. Pt demonstrates ability to feed himself and swallow safely. Pt reports no pain or further needs at this time. I also looked again at the pts mouth to assess for airway closing, airway looks infected but not near swollen closed. Pt confirms that he has no trouble breathing at this time and is having no trouble swallowing his food. pt left sitting up in bed, having dinner, food water phone and call light within reach. Pt re-educated on s/sx of hypoglycemia and instructed to call us for any assistance.
--- NOTE | 2020-07-16 18:23 | NUR ---
RIGHT LOWER DRESSING REMOVED FROM PT'S LEG PER DR. SMALLS'S REQUEST. RIGHT LOWER EXT SKIN IS EXCORIATED, DUSKY WITH SCALING SKIN. SCANT DRY OLD DRAINAGE NOTED TO REMOVED DRESSING. WOUND CLEANSER USED TO SOFTLY PAD SKIN TO LOWER EXT. PT REPORTS CHRONIC NUMBNESS AND TINGLING TO LEFT/RIGHT EXT'S. PEDAL PULSE INTACT; FAINT AND THREADY. PILLOW PLACED UNDER LEGS FOR ELEVATION.
--- NOTE | 2020-07-16 18:36 | NUR ---
Entered pt room to help pt call his on the telephone, take his vitals, and reassess his temperature (which was 100.8). Repositioned pt in bed. Pt reports no pain (other than discomfort of constipation) and has no further needs at this time. Pt left lying in bed, stating he's comfortable, side rails up, bed in lowest position, call light and phone and table within reach.
--- NOTE | 2020-07-16 19:30 | NUR ---
RECEIVED REPORT FROM SKINNY RN. pt RESTING IN BED. NO REQUESTS AT THIS TIME. CALL LIGHT WITHIN REACH.
--- NOTE | 2020-07-16 19:49 | EKG ---
[facility] [address] [facility] [facility] [place], [place] [address] Signed Wide QRS rhythm with occasional premature ventricular complexes Left axis deviation Right bundle branch block Inferior infarct , age undetermined Abnormal ECG When compared with ECG of 16-JUL-2020 08:51, (Unconfirmed) Wide QRS rhythm has replaced Sinus rhythm Confirmed by RONAL SMALLS MD ([id number]) on 07/16/2020 7:49:33 PM Electronically Signed By: RONAL SMALLS MD 07/16/20 194 PATIENT NAME: JÚNIOR ARREOLA Electrocardiogram DATE OF : 36 PHYSICIAN: RONAL SMALLS MD REPORT #: [id number] REPORT IS CONFIDENTIAL AND NOT TO BE RELEASED WITHOUT AUTHORIZATION
--- NOTE | 2020-07-16 20:00 | NUR ---
IN TO DO BLOOD SUGAR CHECK. ASSESSMENT DONE. DISCUSSED PLAN OF CARE. pt COMPLAINED OF CONSTIPATION. DISCUSSED MEDICATIONS pt HAD RECEIVED. CALL LIGHT WITHIN REACH. BED ALARM ON.
--- NOTE | 2020-07-16 21:00 | NUR ---
IN TO DO BLOOD SUGAR. pt UP TO COMMODE, HARD FORMED BM. UNMEASURED VOID. pt UNSTEADY ON FEET. PIVOT TO BED. ADJUSTED FOAM PAD FOR COCCYX. VITALS AND I&O RECORDED. BED ALARM ON. CALL LIGHT IN HAND.
--- NOTE | 2020-07-16 22:00 | NUR ---
pt BLOOD SUGAR SLIGHTLY LOW, ENCOURAGED pt TO EAT PUDDING, pt AGREED. NEW BAG OF FLUIDS HUNG. pt USED URINAL IN BED. ASSISTED TO REPOSITION IN BED. FRESH WATER PROVIDED. pt REPORTED "I FEEL PRETTY GOOD RIGHT NOW." NO FURTHER REQUESTS CALL LIGHT WITHIN REACH.
--- NOTE | 2020-07-16 23:01 | NUR ---
pt MOVING, IN TO ASSESS, pt REPORTED URGENT NEED TO URINATE. ASSISTED WITH URINAL. BLOOD SUGAR TAKEN, IMPROVED. pt RESTING IN BED. NO FURTHER REQUESTS AT THIS TIME. CALL LIGHT WITHIN REACH.
--- NOTE | 2020-07-16 23:41 | NUR ---
CALL LIGHT ON. ASSISTED pt TO USE URINAL. NO FURTHER REQUESTS AT THIS TIME. DURING MOVEMENT HR INCREASED TO 130'S-140'S. DECREASED TO 120'S WITH REST. MULTIPLE PVCS. NO FURTHER REQUESTS AT THIS TIME. CALL LIGHT WITHIN REACH.
--- NOTE | 2020-07-17 00:04 | NUR ---
discussed pts heart rate being more consistently 110-120 and frequent pvcs with pts primary nurse and charge nurse on medical floor.
--- NOTE | 2020-07-17 00:19 | NUR ---
provided asst to rn to boost pt up in the bed, bed alarm is reset
--- NOTE | 2020-07-17 00:48 | NUR ---
pt HR IN 110'S - 120'S WHILE AT REST. 130'S - 140'S WHEN USING URINAL. TEMP ELEVATED. MD UPDATED ON pt CONDITION. NO NEW ORDERS AT THIS TIME.
--- NOTE | 2020-07-17 01:08 | NUR ---
IN TO DO BLOOD SUGAR, pt REPORTED URGENT NEED TO URINATE. ASSISTED WITH URINAL. NO FURTHER REQUESTS AT THIS TIME. CALL LIGHT IN HAND
--- NOTE | 2020-07-17 02:10 | NUR ---
IN TO DO BLOOD SUGAR CHECK, pt RESTING WITH EYES CLOSED, RESPIRATIONS REGULAR HR 110'S. RECHECKED TEMPERATURE, WNL. CALL LIGHT IN HAND.
--- NOTE | 2020-07-17 02:36 | NUR ---
HR INCREASED TO 130'S, ROUNDED ON pt. pt REPORTED NEED TO URINATE. IN TO ASSIST. FRESH DEPENDS IN PLACE. pt REPORTED HE STILL FEELS LIKE HE HAS A FEVER. DISCUSSED NEXT DOSE OF TYLENOL. NO FURTHER REQUESTS AT THIS TIME. CALL LIGHT IN HAND.
--- NOTE | 2020-07-17 03:00 | NUR ---
BLOOD SUGAR TAKEN. CALL LIGHT IN HAND
--- NOTE | 2020-07-17 04:03 | NUR ---
BLOOD SUGAR CHECK DONE. pt RESTING WITH EYES CLOSED, RESPIRATIONS REGULAR AND UNLABORED, RATE 24. HR 112. CALL LIGHT IN HAND.
--- NOTE | 2020-07-17 04:39 | NUR ---
HR INCREASING, IN TO ASSESS. pt REPORTED NEED TO URINATE. IN TO ASSIST. pt COMPLAINED OF CONSTIPATION, DISCUSSED DOCTORS PLAN FOR REST TONIGHT THEN MEDS IN THE MORNING. CALL LIGHT IN HAND.
--- NOTE | 2020-07-17 05:20 | NUR ---
IN TO DO BLOOD SUGAR CHECK. VITALS AND I&O RECORDED. pt CONSENTED TO HAVING INJURIES PHOTOGRAPHED FOR THE CHART, UNABLE TO SIGN CONSENT DUE TO INJURY IN LEFT ARM. PHOTOS TAKEN. BLOOD DRAW DONE. FRESH ICE WATER PROVIDED. NO FURTHER REQUESTS AT THIS TIME. CALL LIGHT WITHIN REACH.
--- NOTE | 2020-07-17 06:10 | NUR ---
BLOOD SUGAR CHECK DONE. NEW BAG OF IV FLUIDS HUNG. CALL LIGHT WITHIN REACH.
--- NOTE | 2020-07-17 06:48 | NUR ---
HR INCREASING, ROUNDED ON pt. REQUESTED TO VOID. ASSISTED. GAVE PRN TYLENOL TEMP IS MILDLY INCREASED AND HR IS TRENDING UP. NO FURTHER REQUESTS AT THIS TIME. CALL LIGHT IN HAND
--- NOTE | 2020-07-17 07:09 | NUR ---
IN TO DO BLOOD SUGAR CHECK. NO REQUESTS AT THIS TIME. CALL LIGHT WITHIN REACH.
--- NOTE | 2020-07-17 07:53 | NUR ---
Patient in bed trying to void, heart rate noted to be increased in the low 120's. Patient reports his mouth hurts due to the "sores". Vital signs and blood sugar taken at this time. right lower leg elevated on pillow. Pt has no needs at this time. Suppository ordered for reported constipation.
--- NOTE | 2020-07-17 08:45 | NUR ---
Suppository bisacodyl admin x1 per pt request for continued constipation. Pt tolerated administration well. Bed alarm intact. Instructed patient to call staff when he needs to her up to commode. Call light within reach.
--- NOTE | 2020-07-17 08:47 | NUR ---
PT LAYING IN BED AWAKE AND ALERT. PT TOLERATED MEDICATION ADMINISTRATION WELL. PT STATES STOMACH IS ALREADY FEELING "BUBBLY" AFTER RECEIVING HIS STOOL SOFTENERS. PT ALSO STATES THAT MOUTH FEELS RAW AND THAT HE WILL LIKELY NOT BE ABLE TO FINISH HIS ENSURE SHAKE. IV INFUSING ORDERED. BED IN LOWEST POSITION. WILL CONTINUE TO MONITOR THE PT.
--- NOTE | 2020-07-17 09:16 | NUR ---
PATIENT IN BED RESTING. FRESH WATER GIVEN. PATIENT SAID SHOWER MAYBE LATER. CALL LIGHT IN REACH. NO FURTHER NEEDS AT THIS TIME.
--- NOTE | 2020-07-17 10:20 | NUR ---
PT USED CALL LIGHT TO INFORM US THAT HE HAD TO USE THE BEDSIDE COMMODE. PT IS 2 PERSON ASSIST AND WAS HELPED UP OFF OF BED. PT HR WAS IN THE 120'S AND SPO2 AT 93% WHILE ON COMMODE. BED BATH DONE, BEDDING CHANGED. PT ASSISTED BACK INTO BED WHILE HE USED A WALKER TO MOVE OVER TO THE BED. PT REPORTS FEELING BETTER AFTER LARGE BOWEL MOVEMENT. IV FLUIDS INFUSING ORDERED, BED IN LOWEST POSITION, CALL ON PT. RIGHT SIDE WITHIN REACH. WILL CONTNUE TO MONITOR THE PT.
--- NOTE | 2020-07-17 11:35 | NUR ---
PT LAYING IN BED AWAKE. IV ABX STARTED AND INFUSING ORDERED. PT REPORTS NO NEEDS AT THIS TIME ASIDE FROM ORDERING LUNCH. PT LAYING IN BED, EYES CLOSED, CALL LIGHT WITHIN REACH, BED IN LOWEST POSITION. WILL CONTINUE TO MONITOR THE PT.
--- NOTE | 2020-07-17 12:17 | NUR ---
PT AWAKE LAYING IN BED. 1 UNIT INSULIN GIVEN PER SLIDING SCALE. PT SAT UP ON BEDSIDE TO EAT LUNCH. PT STATES EATING FOOD IS UNCOMFORTABLE. IV ABX INFUSING ORDERED. CALL LIGHT IS WITHIN REACH ON PT BED. WILL CONTINUE TO MONITOR THE PT.
--- NOTE | 2020-07-17 12:54 | NUR ---
ASSISTED PT TO SITTING POSITION TO EAT LUNCH; CONSUMED APPROX 50% OF IT. PT VOIDED WITH A SMALL BM WELL. PT VERY WEAK, UNSTEADY GAIT WHEN HE STOOD. PT BACK TO BED, ALARM LEFT INTACT. PT PROVIDED WITH A WARM BLANKET HE IS AFEBRILE AT THIS TIME. ENCOURAGED PT TO CALL STAFF FOR HIS SAFETY PRIOR TO GETTING OUT OF BED; PT VERBALIZED HIS UNDERSTANDING. NO NEEDS AT THIS TIME. CALL LIGHT WITHIIN REACH.
--- NOTE | 2020-07-17 13:05 | NUR ---
REPORT RECVD MAURO GRIFFITH RN FOR RN TO RELIEVE FOR LUNCH BREAK. UPON REVIEW CCU RN STATES SHE HAD NOTED AN INCREASE IN PATIENT HR AND PVC NOTED ON TELEMETRY. CALL BY THIS RN TO MS TO REQUEST PT BE ASSESSED. MSG LEFT WITH CODY PANCHAL.
--- NOTE | 2020-07-17 13:12 | NUR ---
CALL TO MS PATIENT HAS HAD SUSTAINED HR 130'S TO 150'S DISPITE ARTIFACT IN TELEMETRY LEADS. PER CODY PANCHAL, RN IN ROUTE TO PATIENT ROOM TO ASSESS. WILL CONTINUE TO MONITOR TELE.
--- NOTE | 2020-07-17 13:19 | NUR ---
CAME TO CHECK ON PATIENT WHEN HEART RATE WAS ELIVATED, PATIENT WAS TRYING TO SIT UP ON EDGE OF BED TO URINATE. ASSITED PATIENT AND IS NOW BACK TO BED. CALL LIGHT IN REACH. BED ALARM ON. NO FURTHER NEEDS AT THIS TIME.
--- NOTE | 2020-07-17 13:26 | NUR ---
UNABLE TO VISIT PT AT THIS TIME DUE TO RESTRICTIONS. WILL FOLLOW NEEDED
--- NOTE | 2020-07-17 13:35 | NUR ---
PT WITH SUSTAINED HR OF 145-150 AFTER GETTING OUT OF BED TO USE URINAL WITH FINISHING LAB TECHNICIAN, VITAL SIGNS ASSESSED. DR. SMALLS NOTIFIED, ORDER TO CONTINUE TO MONITOR.
[2020-07-17] MEDS ORDERED: METOPROLOL SUCC25 MG PO (13:49)
--- NOTE | 2020-07-17 14:08 | NUR ---
PT HR WAS IN THE 150'S, TEMPERATURE WAS 102.1. PT WAS GIVEN ORDERED METOPROLOL AND ACETAMINOPHIN. DR SMALLS WAS NOTIFIED OF PT'S ELEVATED HR. IV FLUIDS INFUSING ORDERED, PT LAYING IN BED, BED IN LOWEST POSITION, CALL LIGHT WITHIN REACH. WILL CONTINUE TO MONITOR THE PT.
--- NOTE | 2020-07-17 14:11 | NUR ---
HR sustaining in the 150's with occassional intermittent spikes to the 160's noted. Call to MS by this RN. ANSLEY Hernandez states that Dr. Palacio is being updated at this time. Will continue to monitor.
--- NOTE | 2020-07-17 14:58 | NUR ---
DR SMALLS NOTIFIED OF PT'S 5 BEATS OF VTACH WHICH OCCURED AT 1442. WILL CONTINUE TO MONITOR THE PT.
--- NOTE | 2020-07-17 15:10 | NUR ---
Attempted to contact pt x 2. Unable to reach by phone. Spoke with aid and she states he isn't feeling well. She is gowning and going into pt room. Asked if she would let pt know I will contact him tomorrow.
--- NOTE | 2020-07-17 15:18 | NUR ---
Transfer orders acknowledged
--- NOTE | 2020-07-17 15:38 | NUR ---
TEMP PROBE THOMAS INSERTED PER ORDER, 700 ML OF CLEAR URINE DRAINED INTO BAG. PT TOLERATED PROCEDURE WELL.
--- NOTE | 2020-07-17 15:41 | NUR ---
Report received from FLY Souza. Orders acknowledged.
--- NOTE | 2020-07-17 15:43 | NUR ---
REPORTED OFF TO FLY CHEEMA IN CCU. ALL QUESTIONS ANSWERED AT THIS TIME.
--- NOTE | 2020-07-17 16:07 | NUR ---
PT BROUGHT TO CCU FROM [facility] BY HOSPITAL BED. FLUIDS INFUSING ORDERED. VITAL SIGNS TAKEN, ASSESSMENT COMPLETE. PT AWAKE AND LAYING IN BED WITH EYES CLOSED. PT STATES THAT HIS "KIDNEYS HURT". 775ML OF YELLOW URINE EMPTIED FROM THOMAS. BLOOD GLUCOSE OF 191 OBTAINED. WILL CONTINUE TO MONITOR THE PT.
--- NOTE | 2020-07-17 17:20 | NUR ---
PT LAYING SITTING UP IN BED IN ORDER TO EAT. 3 UNITS OF INSULIN ADMINISTERED PER SLIDING SCALE. PT STATES HE'S FEELING BETTER. STATES THAT ABDOMEN NO LONGER FEELS SENSITIVE IT DID. HAS NO COMPLAINTS OF PAIN IN ABDOMEN OR BACK. STATES "PROBABLY" HAS SOME NUMBNESS AND TINGLING IN LEFT ARM. HR MAINTAINED AT 124 BPM AT REST. IV FLUIDS INFUSING ORDERED. WILL CONTINUE TO MONITOR THE PT.
--- NOTE | 2020-07-17 18:00 | NUR ---
Patient laying in bed on back. Vital signs taken, oral temp of 100.3 noted. Patient reports "I feel really chilly." One warm blanket provided. Manual blood pressure of 100/42. Medium semi-soft liquid stool cleaned and new attends placed. HR increased to 120's with activity of rolling in bed . Diane emptied of 35 mls of yellow urine. Prior to leaving the room, patient reports feeling hot and removes the blanket. Patient denies pain or SOB. Call light within reach.
--- NOTE | 2020-07-17 19:42 | NUR ---
DISCUSSED PATIENT'S POSITIVE COVID STATUS WITH REQUESTED MAGIC MOUTHWASH FOR PATIENT'S ORAL SORES, MD ORDERED TO USE TID PRN.
--- NOTE | 2020-07-17 20:48 | NUR ---
PATIENT RESTING WITH EYES CLOSED. OPEN EYES TO TOUCH. PATIENT REPORTS BEING COLD. ORAL TEMP 99.7 F. PATIENT DECLINES TYLENOL. WARM BLANKET PROVIDED. PATIENT IS ORIENTED TO SELF AND SURROUNDINGS, NOT DATE OR EVENT. PATIENT DOES NOT PROVIDE MORE THAN 1 WORD ANSWERS. APPEARS DISINTERESTED VERSE DISORIENTED. ORAL MUCOSA IS DRY AND ULCERED. ORAL CARE KIT USED TO CLEAN MOUTH AND PROVIDED MOISTURIZER. PATIENT REPORTS PAIN. LARGE AMOUNT OF BLACK/OMALLEY SEDIMENT REMOVED FROM MOUTH. PATIENT TOLERATING ROOM AIR, LUNG SOUNDS ARE DIM. ABD IS SOFT, BOWEL SOUNDS ACTIVE. ADEQUATE URINE OUTPUT. THOMAS CARE DONE. HEEL PROTECTORS PLACED. PATIENT DENIED ANY NEEDS. HOB ELEVTED TO 30 DEGREES. CALL LIGHT IN REACH.
--- NOTE | 2020-07-17 22:00 | NUR ---
PATIENT PROVIDED WITH MAGIC MOUTHWASH. PATIENT DID NOT FOLLOW INSTRUCTIONS TO SWALLOW AND HELD IN MOUTH FOR SEVERAL MINS. PATIENT DID SWALLOW PART OF THE DOSE AND SPIT THE REST OUT. PATIENT IS ORIENTED TO THE YEAR AND HIS SURROUNDINGS BUT DOES NOT TRACK CONVERSATION WELL AND STATED HE WAS HERE FOR A . PATIENT IS ARGUMENTATIVE AND DISAGREES WITH BEING REORIENTED. POSITIONED THE PATIENT FOR COMFORT. LEFT ARM CUSHIONED ON PILLOWS.
--- NOTE | 2020-07-17 23:51 | NUR ---
PATIENT APPEARS RESTLESS IN BED. UNABLE TO VERBALIZE ANY NEEDS. PATIENT INCONTINENT OF A LIQUID BM. ATTENDS AND LINEN CHANGED. PATIENT FEELS HOT TO THE TOUCH, ORAL TEMP 100.7 F. TYLENOL GIVEN PER PRN ORDERS. PATIENT DID NOT FOLLOW INSTRUCTIONS TO SWALLOW PILLS WELL, INSTEAD HE CHEWED THEM. SEVERAL SIPS OF WATER PROVIDED. PATIENT POSITIONED WITH HOB ELEVATED AND TURNED SLGIHTLY TO HIS RIGHT SIDE. COOL WASH CLOTH PLACED ON FOREHEAD.
--- NOTE | 2020-07-18 01:00 | NUR ---
PATIENT IS RESTLESS AND PULLING AT LEADS. STAFF ENTERED ROOM. PATIENT IS MORE DROWSY THAN PREVIOUS. CONTINUES TO BE ORIENTED TO SELF AND SURROUNDINGS. REPOSITIONED PATIENT IN THE BED. ATTENDS ARE CLEAN. GOOD URINE OUTPUT. BP SOFT, MANUAL BP DONE. 88/38 WITH HR 105. IV SITE IN RIGHT ARM LEAKING. 3RD SITE STARTED IN RIGHT FOREARM BY CLAYTON BILL. ORAL TEMP 99.7 F. DISCUSSED WITH . ORDERS FOR 500 ML BOLUD RECEIVED AND STARTED.
--- NOTE | 2020-07-18 02:30 | NUR ---
IV BOLUS FINSIHED. BP IMPROVED TO 90'S SYSTOLIC. PATIENT APPEARS TO BE RESTING MORE PEACEFULLY. REPOSITIONED PATIENT FOR COMFORT.
--- NOTE | 2020-07-18 05:00 | NUR ---
PATIENT'S HR IMPROVED TO 80'S. BP 90-100 SYSTOLIC. PATIENT APPEARS TO BE SLEEPING MORE SOUNDLY WITH PERIODS OF POSSIBLE SLEEP APNEA, HOWEVER TOLERATING ROOM AIR. PATIENT WAKES BREIFLY TO VOICE BUT CLOSES EYES AGAIN. LABS DRAWN. PATIENT REPOSITIONED. ATTENDS CLEAN. GOOD URINE OUTPUT, THOMAS EMPTIED AT THIS TIME. IV FLUIDS PER ORDER, SITE WNL.
--- NOTE | 2020-07-18 06:40 | NUR ---
DISCUSSED PATIENT'S LAB RESULTS WITH NO NEW ORDERS
--- NOTE | 2020-07-18 07:30 | NUR ---
REPORT RECEIVED FROM NIGHTSHIFT RN. CARE OF PT. RESUMED AT THIS TIME.
[2020-07-18] MEDS ORDERED: ACETAMINOPHEN-1 EAC1 PO (08:15)
[2020-07-18] MEDS ORDERED: DESONIDE15 G1 TOP (08:16)
--- NOTE | 2020-07-18 08:30 | NUR ---
PT LAYIING IN BED ON BACK. IV ABX INFUSING ORDERED. PT COMPLAINS OF PAIN WHEN HIS ABDOMEN IS PALPATED. PT ALSO STATED THAT HIS ARM WAS BURNING DURING A BLOOD PRESSURE. THE IV WAS CHECKED AND WNL, THE BLOOD PRESSURE CUFF WAS REPOSITIONED HIGHER ON HIS ARM. WILL CONTINUE TO MONITOR
--- NOTE | 2020-07-18 09:15 | NUR ---
PT DID NOT TOLERATE PO MEDICATIONS THIS MORNING. ORAL CARE COMPLETED PRIOR TO MEDS BEING GIVEN. MOON RN GAVE PO MEDS WITH WATER AND PT COUGHED UP 2 OF THE 3.5 PILLS GIVEN. WILL HOLD OFF ON FURTHER PO MEDS FOR NOW UNTIL SWALLOW EVAL DONE BY SPEECH THERAPY.
--- NOTE | 2020-07-18 09:30 | NUR ---
SPOKE WITH DR. SMALLS ABOUT PT LOW BP'S 80'S/50'S, MANUAL BP 80/58. ORDERS TO START ON LEVOPHED DRIP AND BOLUS OF LR 250 ML @ 250 MLS/HR. ORDERED SWALLOW EVALUATION FROM SPEECH THERAPY.
--- NOTE | 2020-07-18 09:42 | NUR ---
PT IN BED AWAKE. IF ABX INFUSING ORDERED. TEMPERATURE AFTER TYLENOL ADMINISTRATION WAS 98.6. THOMAS CARE DONE, PERICARE DONE, PT REPOSITIONED ON BED, SACRAL PAD UNDERNEATH PT. ALLEVYN DRESSINGS PLACED OVER OPENED BLISTERS. PT IS CURRENTLY SLEEPING, CALL LIGHT WITHIN REACH, BED IN LOWEST POSITION. WILL CONTINUE TO MONITOR THE PT.
--- NOTE | 2020-07-18 10:28 | NUR ---
PT LAYING IN BED ASLEEP. 250ML BOLUS OF LR AND LEVOPHED DRIP INITIATED. PT STATES BLOOD PRESSURE ON LEFT SIDE WAS NOT BOTHERSOME. PT REPORTS NO NEEDS AT THIS TIME AND WILL GO BACK TO SLEEP. CALL LIGHT WITHIN REACH, BED IN LOWEST POSITION, WILL CONTINUE TO MONITOR THE PT.
[2020-07-18] MEDS ORDERED: FISH OIL 1,0001 EAC2 PO (11:06)
[2020-07-18] MEDS ORDERED: MAGNESIUM OXID420 MG PO (11:07)
--- NOTE | 2020-07-18 11:07 | NUR ---
MED REC COMPLETE
--- NOTE | 2020-07-18 11:22 | NUR ---
PT LAYING IN BED SLEEPING. PT REPORTED NO PAIN OR NEEDS WHEN ASKED. IV LEVOPHED STILL INFUSING AT 2MCG/MIN LAST BP 95/62 (73). IV FLUID INFUSING ORDERED. BED IN LOWEST POSITION, CALL LIGHT WITHIN REACH, WILL CONTINUE TO MONITOR THE PT.
--- NOTE | 2020-07-18 12:20 | NUR ---
PT LAYING IN BED ASLEEP. WHEN ASKED ABOUT PAIN PT STATES HE HAS NONE. PT STATES HE DOES NOT FEEL WELL. PT IS ALERT AND ORIENTED X3. PT DENIES FOOD AT THIS TIME HE STATES "I DONT HAVE AN APPETITE". IV FLUIDS INFUSING ORDERED. LEVOPHED CURRENTLY AT 2MCG/MIN. LAST BP WAS 100/51 (66). CALL LIGHT WITHIN REACH, BED IN LOWEST POSITION, WILL CONTINUE TO MONITOR THE PT.
--- NOTE | 2020-07-18 12:49 | NUR ---
PT LAYING IN BED AWAKE AND WIPING MOUTH WITH COLD WASH CLOTH. PT HAS NO COMPLAINTS ASIDE FROM TENDERNESS IN THE ABDOMEN WHEN PALPATED. PT STATES HE HAS SOME NUMBNESS IN HIS LEFT ARM BUT NO PAIN WHEN RESTING. PT TOLERATED MAGIC MOUTH RINSE WELL BUT STARTED HAVING WET COUGHS WHEN FOLLOWING THE RINSE WITH WATER. PT BACK IN SEMIFOWLERS AWAKE AND ORIENTED. LEVOPHED TITRATING AT 2MCG/MIN. LAST BP WAS 102/60 (72). IV FLUIDS INFUSING ORDERED. PT BED IN LOWEST POSITION, CALL LIGHT ON PT BED WITHIN REACH. WILL CONTINUE TO MONITOR THE PT.
--- NOTE | 2020-07-18 13:00 | NUR ---
Pt not feeling well and unable to complete assessment for CM. Notified by Dr. Palacio pt will be shipped to [facility] due to declining status and need for higher level of care.
--- NOTE | 2020-07-18 13:35 | NUR ---
DR. SMALLS IN TO SEE PT AND GIVE HIM AN UPDATE. WHEN ASKED IF HE WANTS TO TRANSFER PT THOUGHT IT OVER. 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 PT AGREED TO TRANSFER TO A HIGHER ACUITY FACILITY. PT LAYING IN BED, BED IN LOWEST POSITION, CALL LIGHT WITHIN REACH. PT WAS STARTING TO CALL ON CELL PHONE WHEN EXITING THE ROOM. WILL CONTINUE TO MONITOR THE PT.
--- NOTE | 2020-07-18 14:24 | NUR ---
PT HAD A PHONE CALL WITH DR SMALLS HE WAS HESITANT ON HIS TRANSFER. AFTER CLARIFICATION FROM THE DR. THE PT HAS DECIDED TO GO THROUGH WITH THE DR. PATIENT STATES HE IS "WILLING TO DO EVERYTHING". IV FLUIDS INFUSING ORDERED, LEVOPHED DRIP ON STILL ON 2MCG/MIN. LAST BP 116/67 (82). WILL CONTINUE TO MONITOR THE PT.
--- NOTE | 2020-07-18 14:42 | NUR ---
PT ON PRECAUTINS, PT ASLEEP, RN MU SAID PT IS STILL VERY ILL. WILL FOLLOW NEEDED
--- NOTE | 2020-07-18 14:55 | NUR ---
REPORT GIVEN TO LIFENMIGHT RN. PT AWAKE AND ALERT DURING TRANSFER. PT LEFT ON 2L O2 NC, 2MCG/MIN OF LEVOPHED, AND 100 ML/HR OF D5 1/2 NS + 20 KCL. PT TRANSFERRED VIA [facility] TO [facility]. REPORT GIVEN TO FLY ZIMMERMAN AT [facility] AT 1520.
--- NOTE | 2020-07-19 15:12 | PATH ---
[facility] [address] [place], [place] [address] Signed ORDERING PHYSICIAN: Jay Ordaz MD PATIENT NAME: JÚNIOR ARREOLA GENDER: Leanne : 1940 SPECIMEN(S): No Source Given MOLECULAR PATHOLOGY RESULTS: SARS-CoV-2 DETECTED ADDITIONAL NOTES.: The [employer] Fusion SARS-CoV-2 Assay is a multiplex real-time PCR (RT-PCR) in vitro diagnostic test intended for the qualitative detection of RNA from SARS-CoV-2 from individuals who meet COVID-19 clinical and/or epidemiological criteria. In general, SARS-CoV-2 RNA can be detected during the acute phase of infection. Positive results indicate the presence of SARS-CoV-2 RNA. Clinical correlation with patient history and other diagnostic information is necessary to determine patient infection status. Positive results do not rule out bacterial infection or co-infection with other viruses. Negative results do not preclude SARS-CoV-2 infection and should not be used as the sole basis for patient management decisions. Negative results must be combined with other clinical observations, patient history, and epidemiological information. The [employer] Fusion SARS-CoV-2 Assay is not yet approved or cleared by the [place] FDA. When there are no FDA-approved or cleared tests available, and other criteria are met, FDA can make tests available under an emergency access mechanism called an Emergency Use Authorization (EUA). The EUA for this test is supported by the Logging Engineer of Health and Human Service's (HHS's) declaration that circumstances exist to justify the emergency use of in vitro diagnostics for the detection and/or diagnosis of the virus that causes COVID-19. This EUA will remain in effect for the duration of the COVID-19 declaration justifying emergency of IVDs, unless it is terminated or revoked by FDA, after which the test may no longer be used. The Harriman Fusion SARS-CoV-2 Assay is for use only under EUA in US laboratories certified under the Clinical Laboratory Improvement Amendments of 1988 (CLIA) to perform high complexity tests. [facility] is certified under CLIA to perform high complexity PATIENT NAME: JÚNIOR ARREOLA PATHOLOGY DATE OF : 36 REPORT #: [id number] PHYSICIAN: COLT MITCHELL PCP: GILMA CULVER MD REPORT IS CONFIDENTIAL AND NOT TO BE RELEASED WITHOUT AUTHORIZATION [address] [address] Signed clinical laboratory testing. PERFORMING LABORATORY.: Molecular testing was performed by [facility] [address] [place], [place] [address], [place] [address] (Children'S Author: Don Morrell D.O.; CLIA#: [id number]) Diagnostician: System Interface Pathologist Electronically Signed 07/17/2020 Copies: ~ PATIENT NAME: JÚNIOR ARREOLA PATHOLOGY DATE OF : 36 REPORT #: [id number] PHYSICIAN: COLT PATHOLOGY PCP: GILMA CULVER MD REPORT IS CONFIDENTIAL AND NOT TO BE RELEASED WITHOUT AUTHORIZATION
== END 2020-07-18 15:04 | disposition short-term general hospital (02) | DRG 557 ==
LOC: ED 08:23 → MS 14:11 → CCU 07-17 15:35
PROVIDERS: ADMIT Internal Medicine; ATTEND Internal Medicine
PROC: 3E033XZ Introduction of Vasopressor into Peripheral Vein, Percutaneous Approach (ICD-10-PCS; principal; 2020-07-18)
DX: M62.82 Rhabdomyolysis (principal); U07.1 COVID-19; I47.2 Ventricular tachycardia; I50.22 Chronic systolic (congestive) heart failure; I42.0 Dilated cardiomyopathy; I25.2 Old myocardial infarction; E11.649 Type 2 diabetes mellitus with hypoglycemia without coma; I11.0 Hypertensive heart disease with heart failure; J02.9 Acute pharyngitis, unspecified; I95.9 Hypotension, unspecified; I25.10 Atherosclerotic heart disease of native coronary artery without angina pectoris; T84.53XD Infection and inflammatory reaction due to internal right knee prosthesis, subsequent encounter; Z88.2 Allergy status to sulfonamides; Z79.899 Other long term (current) drug therapy; Z79.2 Long term (current) use of antibiotics; Z79.01 Long term (current) use of anticoagulants; Z79.84 Long term (current) use of oral hypoglycemic drugs; Z95.1 Presence of aortocoronary bypass graft; Z95.0 Presence of cardiac pacemaker
CPT/HCPCS: 71045; 80048; 80053; 81001; 82550; 83605; 83735; 83880; 84484; 85025; 85610; 85651; 86695; 86696; 92610; 93005; 93010; 93306; 99285-25; C9803; J0456; J1815; J3480; J7030; J7060; J7070; J7121; Q9957

== ENCOUNTER 2020-07-26 14:17 | Inpatient (IN) | payer MEDICARE, OTHER ==
[~2020-07-26] VITALS: Ht 170.2 cm; Wt 80.2 kg
--- OUTSIDE RECORDS SUMMARY | ~2020-07-26 | XMS | Encounter Summary ---
Demographics + + + | Address | [address] | | | [place] [address] | + + + | Home Phone | | + + + | Preferred Language | Unknown | + + + | Marital Status | | + + + | Jainism Affiliation | 1077 | + + + | Race | White | + + + | Ethnic Group | Not or | + + + Author + + + | Author | [facility] | | | and [place] | + + + | Organization | [facility] | | | and [place] | + + + | Address | Unknown | + + + | Phone | Unavailable | + + + Support + + +---------+ + | Name | Relationship | Address | Phone | + + +---------+ + | Beth Mas | ECON | Unknown | | + + +---------+ + Care Team Providers + +------+ + | Care Adaptive Physical Educator Name | Role | Phone | + +------+ + | Erin Forrester MD | PCP | | + +------+ + Encounter Details +--------+ + + + + | Date | Type | Department | Care Team | Description | +--------+ + + + + | 11/26/ | Orders Only | [facility] | Gutierrez Prado, | | | 2019 | | [address] | PHOTONICS TECHNICIAN [address] | | | | [address] | [place] | | | | | [address] | [place] | | | | | [phone] | [address] | | | | | | [phone] | | | | | | | | +--------+ + + + + Social History + +-------+ +--------+ + | Tobacco Use | Types | Packs/Day | Years | Date | | | | | Used | | + +-------+ +--------+ + | Former Smoker | Pipe | | | Quit: 10/27/1996 | + +-------+ +--------+ + + +---+---+---+ | Smokeless Tobacco: | | | | | Never Used | | | | + +---+---+---+ + + +---------+ + | Alcohol Use | Drinks/Week | oz/Week | Comments | + + +---------+ + | No | | | | + + +---------+ + + + + | Sex Assigned at | Date Recorded | | | | + + + | Not on file | | + + + documented as of this encounter Plan of Treatment +--------+ + + + + | Date | Type | Specialty | Care Team | Description | +--------+ + + + + | 09/20/ | Procedure | Cardiology | | | | 2019 | visit | | | | +--------+ + + + + | 12/20/ | Procedure | Cardiology | | | | 2020 | visit | | | | +--------+ + + + + documented as of this encounter Procedures + +--------+ + + + | Procedure Name | Priori | Date/Time | Associated Diagnosis | Comments | | | ty | | | | + +--------+ + + + | BASIC METABOLIC | Routin | 11/26/2018 | | Results for this | | PANEL | e | 12:44 PM | | procedure are in the | | | | PST | | results section. | + +--------+ + + + documented in this encounter Results Basic Metabolic Panel (11/26/2018 12:44 PM PST) + + + + + + | Component | Value | Ref Range | Performed | Pathologist | | | | | At | Signature | + + + + + + | Na | 139 | 135 - 145 | EXTERNAL | | | | | mmol/L | LAB | | + + + + + + | K | 4.0 | 3.5 - 4.9 | EXTERNAL | | | | | mmol/L | LAB | | + + + + + + | Cl | 95 (L) | 99 - 109 mmol/L | EXTERNAL | | | | | | LAB | | + + + + + + | CO2 | 31 | 23 - 32 mmol/L | EXTERNAL | | | | | | LAB | | + + + + + + | Anion Gap | 17 | 5 - 20 mmol/L | EXTERNAL | | | | | | LAB | | + + + + + + | Glucose, | 185 (H) | 65 - 99 mg/dL | EXTERNAL | | | Fasting | | | LAB | | + + + + + + | BUN | 48 (H) | 8 - 25 mg/dL | EXTERNAL | | | | | | LAB | | + + + + + + | Creatinine | 2.8 (H) | 0.70 - 1.30 | EXTERNAL | | | | | mg/dL | LAB | | + + + + + + | BUN/Creatin | 17 | | EXTERNAL | | | ine Ratio | | | LAB | | + + + + + + | Calcium | 8.6 | 8.5 - 10.5 | EXTERNAL | | | | | mg/dL | LAB | | + + + + + + | Estimated | 22 (L)Comment: GFR <60: | mL/min/1.73_m2 | EXTERNAL | | | GFR | CHRONIC KIDNEY DISEASE, | | LAB | | | | IF FOUND OVER A 3 MONTH | | | | | | PERIOD. GFR <15: KIDNEY | | | | | | FAILURE. FOR | | | | | | AMERICANS, MULTIPLY THE | | | | | | CALCULATED GFR BY 1.210. | | | | | | This eGFR is calculated | | | | | | using the MDRD IDTN | | | | | | traceable equation. | | | | + + + + + + + + | Specimen | + + | Blood specimen | | (specimen) | + + + +---------+ + + | Performing | Address | City/State/Zipcode | Phone Number | | Organization | | | | + +---------+ + + | EXTERNAL LAB | | | | + +---------+ + + documented in this encounter Visit Diagnoses Not on filedocumented in this encounter"
--- OUTSIDE RECORDS SUMMARY | ~2020-07-26 | XMS | Encounter Summary ---
Demographics + + + | Address | [address] | | | [place] [address] | + + + | Home Phone | | + + + | Preferred Language | Unknown | + + + | Marital Status | | + + + | Methodist Affiliation | 1077 | + + + | Race | White | + + + | Ethnic Group | Not or | + + + Author + + + | Author | [facility] | | | and [place] | + + + | Organization | [facility] | | | and [...] Team Providers + +------+ + | Care Community Health Consultant Name | Role | Phone | + +------+ + PCP | Unavailable | + +------+ + Encounter Details +--------+ + + + + | Date | Type | Department | Care Team | Description | +--------+ + + + + | 10/31/ | Hospital | [facility] | Conversion | Coronary artery | | 2016 | Encounter | [facility] | Transaction, | disease involving | | | | CLINICAL DECISION | Provider Unknown | coronary bypass | | | | [address] [facility] | | graft of [place] | | | | [place], [place] | (Fax) | heart with angina | | | | [address] | Robel Ricci | pectoris ([facility]) | | | | [phone] | MD [address] | | | | | | [address] | | | | | | [place] [address] | | | | | | [phone] | | | | | | | [...] + + + | Blood Pressure | 137/76 | 10/31/2015 5:06 PM | | | | | PST | | + + + + + | Pulse | 64 | 10/31/2015 5:06 PM | | | | | PST | | + + + + + | Temperature | 36.5 C (97.7 F) | 10/31/2015 5:06 PM | | | | | PST | | + + + + + | Respiratory Rate | 14 | 10/31/2015 5:06 PM | | | | | PST | | + + + + + | Oxygen Saturation | - | - | | + + + + + | Inhaled Oxygen | - | - | | | Concentration | | | | + + + + + | Weight | 99.8 kg (220 lb) | 10/31/2015 5:06 PM | | | | | PST | | + + + + + | Height | 170.2 cm (5' 7") | 10/31/2015 5:06 PM | | | | | PST | | + + + + + | Body Mass Index | 34.46 | 10/31/2015 5:06 PM | | | | | PST | | + + + + + documented in this encounter Progress Notes Conversion Transaction, Provider Unknown - 10/31/2015 5:50 PM PSTFormatting of this note m ight be different from the original. Nurse Progress Note by Karolyn Ronquillo RN at 10/31/151749 Author: Karolyn Ronquillo RN Service: (none) Author Type: Registered Nurse Filed: 10/31/151751 Date of Service: 10/31/151749 Status: Signed Lighter Captain: Karolyn Ronquillo RN (Registered Nurse) Pt discharged once discharge parameters were met. No signs of bleeding were noted upon dis continuation of TR band. Pt given discharge paperwork however left this behind. Pt VSS. P t denies pain. Pt discharged to home with spouse. onver zoe Transaction, Provider Unknown - 10/31/2015 1:58 PM PST Progress Notes by Allan Julio RPH at 10/31/15 5328 Author: Allan Julio RPH Service: (none) Author Type: Pharmacist Filed: 10/31/15 9036 Date of Service: 10/31/151357 Status: Signed Lighter Captain: Allan Julio RPH (Pharmacist) Renal Dosing Monitoring: Duane Mas 75 y.o. male Pharmacy dosing for renal function per Dr. Villegas Medication(s): unable to calculate CrCl no recent labwork reported Plan per protocol: Medication / Dose: will revisit when information available Pharmacy will continue monitoring patient for appropriate dosing per renal function. 10/31/2015 1:56 PM Pharmacist: ALLAN JULIO docume nted in this encounter H&P Notes Alex Villegas - 10/31/2015 11:02 AM PSTFormatting of this note might be different from the o riginal. H&P by Alex Villegas MD at 10/31/15 1102 Author: Alex Villegas MD Service: Cardiology Author Type: Physician Filed: 10/31/15 1104 Date of Service: 10/31/15 1102 Status: Signed Lighter Captain: Alex Villegas MD (Physician) [facility] Service: Cardiology Pre-Operative History & Physical Interval Update Mr. Duane Mas presented for the prescheduled cardiac catheterization. For details rega rding the presentation kindly refer to Dr. Ricci's following notes. Alex Villegas MD 10/31/2015 11:02 AM *CORE MEASURES REMINDER: If the patient has a known or suspected infection prior to surger y, please add diagnosis to the problem list (consider: Infection 136.9). Author: Robel Ricci DO Service: (none) Author Type: Physician Filed: 10/18/15 1133 Note Time: 10/18/15 0950 Status: Signed Lighter Captain: Robel Ricci DO (Physician) Expand All Collapse All Duane Mas 1940 Date of Service: 10/18/2015 Chief Complaint: Chief Complaint Patient presents with Results lexiscan and US Assessment/Plan ASSESSMENT/PLAN: CAD (coronary artery disease) 2V-CAD, Hx CABG, LVEF 50-60%. 75yo WM, doing relatively well, he is modestly active, admits exertional chest discomfort and shortness of breath, but there is no significant orthopnea or PND, no chest discomfort at rest. Recent nuclear perfusion study discussed with patient, there is some degree of anterior ischemia, this is a not unexpected considering the duration of his bypass surgery. He's tolerating the Imdur, today we increased it to 60 mg daily. Den ies any palpitations. No significant bleeding or bruising. After lengthy discussion with the patient, we've arranged for him to have elective coronary angiography after the holidays. T his and benefits explained, informed consent is obtained. Hx CAB, CABG*2 (SVG to LAD, SVG to PDA). Hx PCI/stent: stents*3 prior to CABG (specifics unknown). Hx Pacemaker/ICD: no Last Cath, 09/16/2001: left main OK, 50% mid-LAD, 90% D1, LCX non-dominant, prox-RCA occ, L VEF 59%. Last Echo, 01/23/2012: LV enlarged, LVEF 45-50%, mild LAE, trace MR, trace TR. Last stress test, 10/09/2015: Lexiscan, mild distal inferior-apical ischemia, LVEF 53%. ECG, 06/26/2015 (Dr Christopher): sinus rhythm, 1st degree AVB, RBBB/LAFB. Hypertension HTN, controlled, continue current meds, at current dose (carvedilol, furosemide, losartan, metolazone). Hyperlipidemia Hyperlipidemia, at goal, continue current meds at current dose (simvastatin). DVT (deep venous thrombosis) ([facility]) Hx DVT, right leg, chronic venous insufficiency. On warfarin, managed by PCP. Arterial US, lower Ext, 10/09/2015: TDS, calcification of trifurcation vessels, mild-modera te disease in upper vessels. Diabetes mellitus, type 2 ([facility]) DM2, managed by PCP. F/U with TITA CHRISTOPHER, RTC Return in about 1 month (around 11/18/2015), or if symptoms worsen or fail to improve.. SUBJECTIVE: 75yo WM, doing relatively well, he is modestly active, admits exertional chest discomfort a nd shortness of breath, but there is no significant orthopnea or PND, no chest discomfort at rest. Recent nuclear perfusion study discussed with patient, there is some degree of anteri or ischemia, this is a not unexpected considering the duration of his bypass surgery. He's t olerating the Imdur, today we increased it to 60 mg daily. Denies any palpitations. No signi ficant bleeding or bruising. After lengthy discussion with the patient, we've arranged for h im to have elective coronary angiography after the holidays. This and benefits explained, in formed consent is obtained. Allergies Allergen Reactions Sulfa Antibiotics Hives Encounter Medications Outpatient Encounter Prescriptions as of 10/18/2015 Medication Sig Dispense Refill acetaminophen-codeine (TYLENOL #2) 300-15 MG per tablet Take 1 tablet by mouth every 4 (four) hours as needed. allopurinol (ZYLOPRIM) 300 MG tablet Take 300 mg by mouth daily. betamethasone dipropionate (DIPROLENE) 0.05 % cream Apply topically 2 (two) times princess ly as needed. carvedilol (COREG) 3.125 MG tablet Take 3.125 mg by mouth 2 (two) times daily with me als. cholecalciferol (VITAMIN D-3) 1000 UNITS tablet Take [...] Take 1 tablet by mouth daily. 90 t ablet 3 losartan (COZAAR) 50 MG tablet Take 1 tablet by mouth daily. 90 tablet 3 metFORMIN (GLUCOPHAGE) 500 MG tablet Take 500 mg by mouth Before eavning meal. metolazone (ZAROXOLYN) 2.5 MG tablet Take 1 tablet by mouth daily. 90 tablet 3 nystatin-triamcinolone (MYCOLOG) ointment Apply topically 2 (two) times daily as need ed. Isom-3 Fatty Acids (FISH OIL) 1200 MG CAPS Take 1,200 mg by mouth 2 (two) times russell y. potassium chloride (K-DUR) 10 MEQ tablet Take 10 mEq by mouth 2 (two) times daily. simvastatin (ZOCOR) 40 MG tablet Take 40 mg by mouth nightly. warfarin (COUMADIN) 2.5 MG tablet Take 2.5 mg by mouth daily. Dr. Christopher regulates PTs [DISCONTINUED] isosorbide mononitrate (IMDUR) 30 MG 24 hr tablet Take 1 tablet by kimi th daily. 90 tablet 3 [DISCONTINUED] isosorbide mononitrate (IMDUR) 60 MG 24 hr tablet Take 1 tablet by kimi th daily. 90 tablet 3 nitroGLYCERIN (NITROSTAT) 0.[address] 1 tablet under the tongue every 5 (f kai) minutes as needed for Chest pain. 25 tablet 12 No facility-administered encounter medications on file as of 10/18/2015. History Substance Use Topics Smoking status: Former Smoker -- 40 years Types: Pipe Quit date: 10/27/1997 Smokeless tobacco: Never Used Alcohol Use: 0.0 oz/week 0 Not specified per week Comment: rarely Review of Systems Constitutional: Negative for fever. HENT: Negative for nosebleeds. Eyes: Negative for blurred vision and double vision. Respiratory: Positive for shortness of breath. Negative for cough, hemoptysis, sputum produ ction and wheezing. Cardiovascular: Positive for chest pain and claudication. Gastrointestinal: Negative for heartburn, nausea, vomiting, abdominal [...] and problem list. OBJECTIVE: Vitals Filed Vitals: 10/18/15 0940 BP: 122/68 Pulse: 60 Resp: 18 Height: 1.715 m (5' 7.5") Weight: 101.969 kg (224 lb 12.8 oz) SpO2: 96% Physical Exam Constitutional: He is oriented to person, place, and time and well-developed, well-nourishe d, and in no distress. Eyes: EOM are normal. Neck: No JVD present. Cardiovascular: Normal rate, regular rhythm, S1 normal and S2 normal. No extrasystoles are present. PMI is not [...] no tend erness. Musculoskeletal: He exhibits edema (2+ PTE, eugene, with stasis changes. Left leg donor.). Neurological: He is alert and oriented to person, place, and time. Skin: Skin is warm and dry. No bruising, no ecchymosis and no rash noted. No cyanosis. Nail s show no clubbing. This note prepared with voice recognition software, if any questions concerning spelling an d/or grammar, please call. Robel Ricci D.O. [facility] documented in this encounte r Plan of Treatment +--------+ + + + [...] | + +--------+ + + + | ECG 12 LEAD | Routin | 10/31/2015 | | Results for this | | | e | 2:20 PM | | procedure are in the | | | | PST | | results section. | + +--------+ + + + | PROTIME INR | Routin | 10/31/2015 | | Results for this | | | e | 10:27 AM | | procedure are in the | | | | PST | | results section. | + +--------+ + + + documented in this encounter Results ECG 12 lead (10/31/2015 2:20 PM PST) + + + + + + | Component | Value | Ref Range | Performed | Pathologist | | | | | At | Signature | + + + + + + | DIAGNOSIS: | Sinus rhythm with 1st | | EXTERNAL | | | | degree A-V blockRight | | LAB | | | | bundle branch | | | | | | blockInferior infarct , | | | | | | age undeterminedAbnormal | | | | | | ECGWhen compared with | | | | | | ECG of 09-OCT-2015 | | | | | | 09:31,No significant | | | | | | change since previous | | | | | | ECG Confirmed by GALI | | | | | | ESTER ([id number]) on 11/01/2015 | | | | | | 11:21:42 AM | | | | + + + + + + + + | Specimen | + + | | + + + + + | Narrative | Performed At | + + + | Historically converted procedure from [facility] environment | EXTERNAL LAB | + + + + +---------+ + + | Performing | Address | City/State/Zipcode | Phone Number | | Organization | | | | + +---------+ + + | EXTERNAL LAB | | | | + +---------+ + + Martha PRYOR (10/31/2015 10:27 AM PST) + + + + + + | Component | Value | Ref Range | Performed | Pathologist | | | | | At | Signature | + + + + + + | INR | 1.6Comment: REFERENCE | | EXTERNAL | | | [...] | | | | | performed at [facility] | | | | | | [facility];[place], [place] | | | | | | [address] | | | | + + + [...] + | Diagnosis | + + | Coronary artery disease involving coronary bypass graft of [place] heart with angina | | pectoris (HCC) | + + documented in this encounter
--- OUTSIDE RECORDS SUMMARY | ~2020-07-26 | XMS | Encounter Summary ---
Demographics + + + | Address | [address] | | | [place] [address] | + + + | Home Phone | | + + + | Preferred Language | Unknown | + + + | Marital Status | Unknown | + + + | Anabaptist Affiliation | PRO | + + + | Race | White | + + + | Ethnic Group | Not or | + + + Author + + + | Author | [facility] | + + + | Organization | [facility] | + + + | Address | Unknown | + + + | Phone | Unavailable | + + + Support + + +---------+ + | Name | Relationship | Address | Phone | + + +---------+ + | Beth Mas | ECON | Unknown | | + + +---------+ + Care Team Providers + +------+ + | Care Bunk House Worker Name | Role | Phone | + +------+ + | Gilberto Estrada MD | PCP | | + +------+ + Encounter Details +--------+---------+ + + + | Date | Type | Department | Care Team | Description | +--------+---------+ + + + | 06/12/ | Surgery | [address] Op [id number] | Sandoval Hyde, | RIGHT KNEE I&D, | | 2018 | | [address] | [address] | POSSIBLE COMPONENT | | | | Rd [facility] Main | [facility] [place] | EXCHANGE, POSSIBLE | | | | Hospital Admitting | [address] | REVISION | | | | Desk Located on the | [phone] | | | | | 9th floor | | | | | | [place], [place] | | | | | | [address] | | | +--------+---------+ + + + Social History + +-------+ [...] + + documented as of this encounter Medications at Time of Discharge + + + +---------+ + + | Medication | Sig | Dispensed | Refills | Start | End Date | | | | | | Date | | + + + +---------+ + + | | Take 1 tablet by | 30 | 0 | 06/16/20 | | | acetaminophen-codein | mouth every six | tablet | | 18 | | | e 300-30 mg oral | hours as needed for | | | | | | tablet | severe pain. | | | | | + + + +---------+ + + | antiox.mv | Take 1 capsule by | | 0 | | | | no.[id number] | mouth once daily. | | | | | | (I-CAPS) 280-10-2 | | | | | | | mg oral capsule | | | | | | + + + +---------+ + + | eplerenone 25 mg | Take 12.5 mg by | | 0 | | | | oral tablet | mouth once daily. | | | | | + + + +---------+ + + | | Inhale 1 puff two | | 0 | | | | fluticasone-salmeter | times daily. | | | | | | ol 250-50 mcg/dose | | | | | | | inhalation blister | | | | | | | with device | | | | | | + + + +---------+ + + | Niacinamide 500 mg | Take 1 tablet by | | 0 | | | | oral tablet | mouth two times | | | | | | | daily. | | | | | + + + +---------+ + + | senna-docusate | Take 1 tablet by | 60 | 0 | 06/16/20 | | | 8.6-50 mg oral | mouth two times | tablet | | 18 | | | tablet | daily. | | | | | + + + +---------+ + + | triamcinolone | Apply to affected | | 0 | | | | acetonide 0.1 % | area three times | | | | | | topical cream | daily. Apply thin | | | | | | | film to affected | | | | | | | areas. | | | | | + + + +---------+ + + | warfarin 2.5 mg | Take 2.5 mg by mouth | | 0 | | | | oral tablet | once daily. | | | | | + + + +---------+ + + | heparin | Inject 0.5 mL under | 6 each | 0 | 06/17/20 | | | sodium,porcine/PF | the skin (SUBC) | | | 18 | 8 | | (HEPARIN, PORCINE | every eight hours | | | | | | (PF)) 5,000 unit/0.5 | for 2 days. | | | | | | mL injection | Indications: Deep | | | | | | solutionIndications: | Vein Thrombosis | | | | | | deep vein | Prevention | | | | | | thrombosis | | | | | | | prevention | | | | | | + + + +---------+ + + documented as of this encounter Miscellaneous Notes Comm Ny Ritter - 06/11/2018 2:09 PM PDTRef previously consulted with ortho Dr. Maral Leon who advised PT to come to [facility] ED. Advised Dr. Yen to call ED to give report when available. Dr. Yen is currently scrubbi ng in for surgery and unable to give report at this time. C/O Infected right knee total replacement. documented in this encounter Plan of Treatment Not on filedocumented as of this encounter Procedures + +--------+ + + + | Procedure Name | Priori | Date/Time | Associated Diagnosis | Comments | | | ty | | | | + +--------+ + + + | KNEE INCISION AND | Electi | 06/12/2018 | RIGHT KNEE | | | DRAINAGE WITH | ve | 7:10 PM | PROSTHETIC JOINT | | | ANTIBIOTIC SPACER | Surgic | PDT | INFECTION | | | PLACEMENT | al | | | | + +--------+ + + + documented in this encounter Visit Diagnoses Not on filedocumented in this encounter"
--- OUTSIDE RECORDS SUMMARY | ~2020-07-26 | XMS | Encounter Summary ---
Demographics + + + | Address | [address] | | | [place] [address] | + + + | Home Phone | | + + + | Preferred Language | Unknown | + + + | Marital Status | Unknown | + + + | Pentecostal Affiliation | PRO | + + + | Race | White | + + + | Ethnic Group | Not or | + + + Author + + + | Author | [facility] | + + + | Organization | [facility] | + + + | Address | Unknown | + + + | Phone | Unavailable | + + + Support + + +---------+ + | Name | Relationship | Address | Phone | + + +---------+ + | Beth Mas | ECON | Unknown | | + + +---------+ + Care Team Providers + +------+ + | Care Traffic I Manager Name | Role | Phone | + +------+ + | Gilberto Estrada MD | PCP | | + +------+ + Reason for Visit Office Visit - E/M Services (Routine) +--------+--------+ + + + + | Status | Reason | Specialty | Diagnoses / | Referred By | Referred To | | | | | Procedures | Contact | Contact | +--------+--------+ + + + + | Closed | | Infectious | Diagnoses | Non-[facility] | Cornelius, | | | | Disease | Infection | Epic Dept | Abril Veloz MD | | | | | and | | [address] | | | | | inflammatory | | [address] | | | | | reaction | | [address] [place], | | | | | due to | | [place] | | | | | internal | | [address] | | | | | right knee | | Phone: | | | | | prosthesis, | | [phone] | | | | | initial | | Fax: | | | | | encounter | | [phone] | +--------+--------+ + + + + Encounter Details +--------+---------+ + + + | Date | Type | Department | Care Team | Description | +--------+---------+ + + + | 07/15/ | Office | Infectious | Abril Shields, | Infection associated | | 2018 | Visit | [facility] at [facility] | [address] | with internal right | | | | [address] [place] | [address] | knee prosthesis, | | | | [facility] | [facility] [place] | subsequent encounter | | | | [place], 3rd floor | [address] | (Primary Dx); Long | | | | [place], [place] | [phone] | term (current) use | | | | [address] | | of antibiotics | | | | [phone] | | | +--------+---------+ + + + [...] + + + | Blood Pressure | 131/64 | 07/15/2018 10:39 AM | | | | | PDT | | + + + + + | Pulse | 94 | 07/15/2018 10:39 AM | | | | | PDT | | + + + + + | Temperature | 36.2 C (97.2 F) | 07/15/2018 10:39 AM | | | | | PDT | | + + + + + | Respiratory Rate | - | - | | + + + + + | Oxygen Saturation | 100% | 07/15/2018 10:39 AM | | | | | PDT | | + + + + + | Inhaled Oxygen | - | - | | | Concentration | | | | + + + + + | Weight | 96.9 kg (213 lb 9.6 | 07/15/2018 10:39 AM | | | | oz) | PDT | | + + + + + | Height | - | - | | + + + + + | Body Mass Index | 33.45 | 06/12/2018 9:33 PM | | | | | PDT | | + + + + + documented in this encounter Functional Status + + + [...] + + documented as of this encounter Patient Instructions Patient Instructions Abril Shields MD - 07/15/2018 10:30 AM PDTPlease make an appointm ent to see me in 1 month. I will also work on setting up a joint appt with Dr. Norman shirley. After you finish your IV antibiotics I recommend that you start an oral antibiotic called c ephalexin. I will send this prescription to your pharmacy. Please call me and Dr. Hyde if you have any worsening redness of your knee or any drainag e from your incision or any fevers. You should also call me if you have watery diarrhea 3 ti mes a day or more. If this happens, we will need to collect a stool sample to rule out infec tious diarrhea. documented in this encounter Progress Notes Abril Shields MD - 07/15/2018 10:30 AM PDTFormatting of this note might be different f rom the original. Reason for visit: follow-up R knee PJI S: Mr. 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 He is overall feeling well. He notes an area of redness near the superior aspect of his R knee incision without drainage. He also reports a faint area of redness and pain over his medial R knee. No f/c/s. No n/v/d. His PICC is work ing normally. Of note, he was briefly hospitalized since discharge from [facility] for ALVINO. Cr now back at prev ious baseline. He is off his water pills and notes BLE edema which is causing skin breakdown . ROS: as above Current Outpatient Prescriptions: acetaminophen-codeine 300-30 mg oral tablet, Take 1 table t by mouth every six hours as needed for severe pain., Disp: 30 tablet, Rfl: 0 allopurinol 300 mg oral tablet, Take 150 mg by mouth once daily., Disp: , Rfl: allopurinol 300 mg oral tablet, Take 300 mg by mouth once daily., Disp: , Rfl: antiox. no.[id number] (I-CAPS) 280-10-2 mg oral capsule, Take 1 capsule by mouth o nce daily., Disp: , Rfl: ceFAZolin injection recon soln, Inject 2,000 mg into the vein (IV) every eight hours for 23 days. To be admixed per infusion pharmacy standard policy and/or procedure. Indications: brittany ne/joint infection, Disp: 138 g, Rfl: 0 cephALEXin 500 mg oral capsule, Take 500 mg by mouth every six hours., Disp: , Rfl: cholecalciferol (Vitamin D3) 1,000 unit oral tablet, Take 1,000 Units by mouth once daily., Disp: , Rfl: colchicine 0.6 mg oral tablet, Take 0.6 mg by mouth two times daily., Disp: , Rfl: colchicine 0.6 mg oral tablet, Take 0.6 mg by mouth once daily as needed (gout flare). , Di sp: , Rfl: eplerenone 25 mg oral tablet, Take 12.5 mg by mouth once daily., Disp: , Rfl: fluticasone-salmeterol 250-50 mcg/dose inhalation blister with device, Inhale 1 puff two ti mes daily., Disp: , Rfl: folic acid 0.4 mg oral tablet, Take 400 mcg by mouth once daily., Disp: , Rfl: magnesium oxide 400 mg oral tablet, Take 400 mg by mouth once daily., Disp: , Rfl: multivitamin oral tablet, Take 1 tablet by mouth once daily., Disp: , Rfl: mupirocin 2 % topical ointment, three times daily. Apply to affected area., Disp: , Rfl: niacin 500 mg oral tablet, Take 500 mg by mouth once daily in the evening., Disp: , Rfl: Niacinamide 500 mg oral tablet, Take 1 tablet by mouth three times daily., Disp: , Rfl: omega 5-rww-okt-fish oil (FISH OIL) 100-160-1,000 mg oral capsule, Take by mouth., Disp: , Rfl: senna-docusate 8.6-50 mg oral tablet, Take 1 tablet by mouth two times daily., Disp: 60 tab let, Rfl: 0 simvastatin 40 mg oral tablet, Take 40 mg by mouth once daily in the evening., Disp: , Rfl: triamcinolone acetonide 0.1 % topical cream, Apply to affected area three times daily. Appl y thin film to affected areas., Disp: , Rfl: warfarin 2.5 mg oral tablet, Take 2.5 mg by mouth once daily., Disp: , Rfl: warfarin 2.5 mg oral tablet, Take 2 tablets by mouth every Friday. Take 1 tablet by mouth all other days of the week., Disp: , Rfl: Filed Vitals: 07/15/2018 10:39 AM Weight: 96.9 kg (213 lb 9.6 oz) BP: 131/64 Pulse: 94 Temp: 36.2 C (97.2 F) TempSrc: Forehead SpO2: 100% PainSc: 02 - Mild PainLoc: Generalized BMI: 33.45 kg/(m^2) Gen: NAD, well-appearing, sitting in chair Skin: ~2-3cm area of erythema with scabbing at superior aspect of R knee incision without d rainage; remainder of R knee incision well-healed; faint erythema, increased warmth to touch and mild ttp over R medial knee HEENT: nl sclera, MMM Lungs/chest: respirations nonlabored Labs: 07/13: Cr 2.01 WBC 7.0 CRP 06/11/18 143.0 R knee XR 07/14/18: Right total knee arthroplasty in normal alignment without evidence of new hardware complica tion. Extensive soft tissue swelling surrounding the knee with large joint effusion. Assessment: 78yo man with a h/o CAD s/p CABG, ICM, sinus node dysfunction s/p PM, afib, DM, CKD, DVT on chronic anticoagulation, chronic venous insufficiency and OA s/p R TKA 2012 c/b MSSE R PJI s/p I&D with poly exchange 06/12/18 being treated with cefazolin. I am concerned about the possibility of developing recurrent infection of the R knee in the setting of jenny ined hardware - exam notable for 2 areas of erythema as noted above. Recommendations: 1. Continue cefazolin 2g Q12h through 07/24 to complete a 6 week course 2. Faxed order for repeat CRP to be checked with next OPAT labs 3. Will plan to transition to chronic suppression with cephalexin 500mg PO TID following co mpletion of cefazolin 4. Pt counseled to monitor for f/c/s, worsening redness, drainage or dehiscence of R knee i ncision, worsening pain or swelling of R knee; if these or other concerning sxs occur, he sh ould contact ortho and ID 5. 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
--- OUTSIDE RECORDS SUMMARY | ~2020-07-26 | XMS | Encounter Summary ---
Demographics + + + | Address | [address] | | | [place] [address] | + + + | Home Phone | | + + + | Preferred Language | Unknown | + + + | Marital Status | | + + + | Sikh Affiliation | [phone] | + + + | Race | White | + + + | Ethnic Group | Not or | + + + Author + + + | Author | [facility] | | | and [place] | + + + | Organization | [facility] | | [...] Team Providers + +------+ + | Care Chief Engineer Name | Role | Phone | + +------+ + PCP | Unavailable | + +------+ + Encounter Details +--------+ + + + + | Date | Type | Department | Care Team | Description | +--------+ + + + + | 09/12/ | [facility] | Olaf Nicole | | | [facility] - | Encounter | [facility] | MD [address] | | | | | CARDIAC TELEMETRY | [address] | | | 09/14/ | | [address] | [place] [address] | | | 1999 | | [place] | [phone] | | | | | [address] | | | | | | [phone] | | | +--------+ + + + [...]
--- OUTSIDE RECORDS SUMMARY | ~2020-07-26 | XMS | Encounter Summary ---
Demographics + + + | Address | [address] | | | [place] [address] | + + + | Home Phone | | + + + | Preferred Language | Unknown | + + + | Marital Status | Unknown | + + + | Zoroastrian Affiliation | PRO | + + + | Race | White | + + + | Ethnic Group | Not or | + + + Author + + + | Author | [facility] | + + + | Organization | [facility] | + + + | Address | Unknown | + + + | Phone | Unavailable | + + + Support + + +---------+ + | Name | Relationship | Address | Phone | + + +---------+ + | Beth Mas | ECON | Unknown | | + + +---------+ + Care Team Providers + +------+ + | Care Supervisor Webbing Name | Role | Phone | + +------+ + | Gilberto Estrada MD | PCP | | + +------+ + Encounter Details +--------+ + + + + | Date | Type | Department | Care Team | Description | +--------+ + + + + | 08/18/ | Hospital | Radiology/Imaging | Sandoval Hyde, | | | 2017 | Encounter | at [facility] | [address] | | | | | [address] | [place], [place] | | | | | [facility] [address] | [address] | | | | | [place], [place] | [phone] | | | | | [address] | | | | | | [phone] | | | +--------+ + + + [...] | | 0 | | | | no.[id number] | mouth once daily. | | | | | | (I-CAPS) 280-10-2 | | | | | | | mg oral capsule | | | | | | + + + +---------+ + + | cholecalciferol | Take 1,000 Units by | | 0 | | | | (Vitamin D3) 1,000 | mouth two times | | | | | | unit oral tablet | daily. | | | | | + + + +---------+ + + | colchicine 0.6 mg | Take 0.6 mg by mouth | | 0 | | | | oral tablet | once daily as | | | | | | | needed (gout flare). | | | | | | | [...] + + + +---------+ + + | folic acid 0.4 mg | Take 400 mcg by | | 0 | | | | oral tablet | mouth once daily. | | | | | + + + +---------+ + + | glipiZIDE 10 mg | Take 15 mg by mouth | | 0 | | | | oral | once daily. | | | | | | tabletIndications: | Indications: type 2 | | | | | | type 2 diabetes | diabetes mellitus | | | | | | mellitus | | | | | | + + + +---------+ + + | LUTEIN-ZEAXANTHIN | Take by mouth. | | 0 | | | | ORAL | | | | | | + + + +---------+ + + | magnesium oxide | Take 400 mg by mouth | | 0 | | | | 400 mg oral tablet | once daily. | | | | | + + + +---------+ + + | Niacinamide 500 mg | Take 1 tablet by | | 0 | | | | oral tablet | mouth two times | | | | | | | daily. | | | | | + + + +---------+ + + | potassium chloride | Take 20 mEq by mouth | | 0 | | | | SR 10 mEq oral | two times daily. | | | | | | capsule, extended | | | | | | | release | | | | | | + + + +---------+ + + | senna-docusate | Take 1 tablet by | 60 | 0 | 06/16/ | | | 8.6-50 mg oral | mouth two times | tablet | | 18 | | | tablet | daily. | | | | | + + + +---------+ + + | torsemide 20 mg | Take 20 mg by mouth | | 0 | | | | oral tablet | two times daily. | | | | | + [...] | + +--------+ + + + | X-RAY KNEE 2 VIEWS | Routin | 08/18/2018 | Right knee pain, | Results for this | | RIGHT | e | 3:17 PM | unspecified | procedure are in the | | | | PDT | chronicity | results section. | + +--------+ + + + documented in this encounter Results X-RAY KNEE 2 VIEWS RIGHT (08/18/2018 3:17 PM PDT) + + | Specimen | + + | | + + + + + | Narrative | Performed At | + + + | EXAM: KNEE 2 VIEWS RIGHT HISTORY: BONE PAIN, KNEE | [facility] | | COMPARISON: Right knee radiograph 07/14/2018 FINDINGS: The | RADIOLOGY VOICE | | right total knee arthroplasty is intact and unchanged alignment. There | RECOGNITION 2 | | is no hardware loosening or periprosthetic fracture. There is | | | unchanged ossification along the medial femoral condyle, likely | | | related to chronic MCL injury. There is quadriceps and patellar tendon | | | enthesopathy. There are vascular calcifications. There is decreasing | | | soft tissue swelling and no significant joint effusion. | | | IMPRESSION: Intact right total knee arthroplasty with unchanged | | | alignment. I have personally reviewed the images and, if | | | necessary, edited the report. I agree with the report as now | | | presented. Final signature: Ugo Zepeda MD 08/18/2018 | | | 3:26 PM Preliminary: Song Regan MD Dictation initiated: Song | | | MD Shereen 08/18/2018 3:18 PM | | + + + + + | Procedure Note | + + | Service Account, Radiant Res In Interface - 08/18/2018 3:27 PM PDT EXAM: KNEE 2 | | VIEWS RIGHT HISTORY: BONE PAIN, KNEE COMPARISON: Right knee radiograph 07/14/2018 | | FINDINGS: The right total knee arthroplasty is intact and unchanged alignment. There is | | no hardware loosening or periprosthetic fracture. There is unchanged ossification along | | the medial femoral condyle, likely related to chronic MCL injury. There is quadriceps | | and patellar tendon enthesopathy. There are vascular calcifications. There is decreasing | | soft tissue swelling and no significant joint effusion. IMPRESSION: Intact right total | | knee arthroplasty with unchanged alignment. I have personally reviewed the images and, | | if necessary, edited the report. I agree with the report as now presented. Final | | signature: Ugo Zepeda MD 08/18/2018 3:26 PM Preliminary: Song Regan MD | | Dictation initiated: Song Regan MD 08/18/2018 3:18 PM | |IMPRESSION: | | | |Intact right total knee arthroplasty with unchanged alignment. | | | |I have personally reviewed the images and, if necessary, edited the report. I agree with e report as now presented. | | | |Final signature: Ugo Zepeda MD 08/18/2018 3:26 PM | |Preliminary: Song Regan MD | |Dictation initiated: Song Regan MD 08/18/2018 3:18 PM | + + + +---------+ + + | Performing | Address | City/State/Zipcode | Phone Number | | Organization | | | | + +---------+ + + | [facility] | | | | | VOICE RECOGNITION 2 | | | | + +---------+ + + documented in this encounter Visit Diagnoses + + | Diagnosis | + + | Right knee pain, unspecified chronicity | + + documented in this encounter"
--- OUTSIDE RECORDS SUMMARY | ~2020-07-26 | XMS | Encounter Summary ---
Demographics + + + | Address | [address] | | | [place] [address] | + + + | Home Phone | | + + + | Preferred Language | Unknown | + + + | Marital Status | Unknown | + + + | Church Affiliation | PRO | + + + | Race | White | + + + | Ethnic Group | Not or | + + + Author + + + | Author | [facility] | + + + | Organization | [facility] | + + + | Address | Unknown | + + + | Phone | Unavailable | + + + Support + + +---------+ + | Name | Relationship | Address | Phone | + + +---------+ + | Beth Mas | ECON | Unknown | | + + +---------+ + Care Team Providers + +------+ + | Care Public Relations Coordinator Name | Role | Phone | + +------+ + | Gilberto Estrada MD | PCP | | + +------+ + Encounter Details +--------+ + + + + | Date | Type | Department | Care Team | Description | +--------+ + + + + | 06/11/ | Emergency | [facility] Emergency | Sandoval Hyde, | | | 2017 | | Department [address] | [address] | | | | | [address] | [place], [place] | | | | | [facility] | [address] | | | | | [place], [place] | [phone] | | | | | [address] | | | | | | [phone] | | | +--------+ + + + [...] | | 0 | | | | no.[id number] | mouth once daily. | | | [...] Leon who advised PT to come to [facility] ED. Advised Dr. Yen to call ED [...]
--- OUTSIDE RECORDS SUMMARY | ~2020-07-26 | XMS | Encounter Summary ---
Demographics + + + | Address | [address] | | | [place] [address] | + + + | Home Phone | | + + + | Preferred Language | Unknown | + + + | Marital Status | Unknown | + + + | Orthodoxy Affiliation | PRO | + + + | Race | White | + + + | Ethnic Group | Not or | + + + Author + + + | Author | [facility] | + + + | Organization | [facility] | + + + | Address | Unknown | + + + | Phone | Unavailable | + + + Support + + +---------+ + | Name | Relationship | Address | Phone | + + +---------+ + | Beth Mas | ECON | Unknown | | + + +---------+ + Care Team Providers + +------+ + | Care Metal Tester Name | Role | Phone | + [...] | | | | and | | [address] | | | | | inflammatory | | [address] | | | | | reaction | | [address] [place], | | | | | due to | | [place] | | | | | internal | | [address] | | | | | right knee | | Phone: | | | | | prosthesis, | | [phone] | | | | | initial | | Fax: | | | | | encounter | | [phone] | +--------+--------+ + + + + Encounter Details +--------+---------+ + + + | Date | Type | Department | Care Team | Description | +--------+---------+ + + + | 04/27/ | Office | Infectious | Abril Shields, | Infection of | | 2019 | Visit | [facility] at [facility] | MD [address] | prosthetic knee | | | | [address] | [facility] | joint, subsequent | | | | [facility] | [place], [place] | encounter (Primary | | | | [place], [address] floor | [address] | Dx); residential | | | | [place], [place] | [phone] | (current) use of | | | | [address] | | antibiotics | | | | [phone] | | | +--------+---------+ + + + [...] + + + | Blood Pressure | 134/74 | 04/27/2019 9:48 AM | | | | | PDT | | + + + + + | Pulse | 89 | 04/27/2019 9:48 AM | | | | | PDT | | + + + + + | Temperature | 36.6 C (97.9 F) | 04/27/2019 9:48 AM | | | | | PDT | | + + + + + | Respiratory Rate | - | - | | + + + + + | Oxygen Saturation | 95% | 04/27/2019 9:48 AM | | | | | PDT | | + + + + + | Inhaled Oxygen | - | - | | | Concentration | | | | + + + + + | Weight | 90.3 kg (199 lb) | 04/27/2019 9:48 AM | | | | | PDT | | + + + + + | Height | - | - | | + + + + + | Body Mass Index | 30.26 | 08/18/2018 3:20 PM | | | | | PDT [...] Instructions Patient Instructions Abril Shields MD - 04/27/2019 10:00 AM PDTPlease continue to take your cephalexin twice a day. If Dr. Estrada is comfortable taking over prescribing this med ication, I don't need to see you back for follow-up unless you are having problems with your knee. documented in this encounter Progress Notes Abril Shields MD - 04/27/2019 10:00 AM PDTFormatting of this note might be different f rom the original. Reason for visit: hx MSSE knee PJI S: Mr. Mas presents for routine follow-up for hx of MSSE R knee PJI on suppressive cephal exin. He is tolerating cephalexin without issues. His knee incision is healed and he has no scabbing anymore. No drainage from his knee. No f/c/s, n/v/d. +hoarse voice and cough with minimal green sputum that started recently; eating seems to ex acerbate these sxs +leg edema; managing with diuretics and compression devices ROS: as above Current Outpatient Medications: acetaminophen-codeine 300-30 mg oral tablet, Take 1 tablet by mouth every six hours as needed for severe pain. (Patient taking differently: Take 1 tabl et by mouth twice daily as needed for severe pain. ), Disp: 30 tablet, Rfl: 0 antiox. [id number] (I-CAPS) 280-10-2 mg oral capsule, Take 1 capsule by mouth o nce daily., Disp: , Rfl: cephALEXin 500 mg oral capsule, Take 1 capsule by mouth every eight hours. Indications: bon e/joint infection (Patient taking differently: Take 500 mg by mouth two times daily. Indica tions: bone/joint infection), Disp: 90 capsule, Rfl: 2 cholecalciferol (Vitamin D3) 1,000 unit oral tablet, Take 1,000 Units by mouth two times da afshan. , Disp: , Rfl: colchicine 0.6 mg oral [...] by mouth once daily., Disp: , Rfl: glipiZIDE 10 mg oral tablet, Take 15 mg by mouth once daily. Indications: type 2 diabetes mellitus, Disp: , Rfl: LUTEIN-ZEAXANTHIN ORAL, Take by mouth., Disp: , Rfl: magnesium oxide 400 mg oral tablet, Take 400 mg by mouth once daily., Disp: , Rfl: Niacinamide 500 mg oral tablet, Take 1 tablet by mouth two times daily. , Disp: , Rfl: potassium chloride SR 10 mEq oral capsule, extended release, Take 20 mEq by mouth two times daily., Disp: , Rfl: senna-docusate 8.6-50 mg oral tablet, Take 1 tablet by mouth two times daily., Disp: 60 tab let, Rfl: 0 torsemide 20 mg oral tablet, Take 20 mg by mouth two times daily., Disp: , Rfl: triamcinolone acetonide 0.1 % topical cream, Apply to affected area three times daily. Appl y thin film to affected areas., Disp: , Rfl: warfarin 2.5 mg oral tablet, Take 2.5 mg by mouth once daily., Disp: , Rfl: Vitals: 04/27/19 0948 BP: 134/74 BP Location: Left upper arm Patient Position: Sitting Pulse: 89 Temp: 36.6 C (97.9 F) TempSrc: Oral SpO2: 95% Weight: 90.3 kg (199 lb) PainSc: 0 - Zero Gen: NAD, well-appearing Skin: well-healed scar over R knee without scabbing, drainage or erythema MSK: no ttp over R knee HEENT: nl sclera, MMM Lungs/chest: respirations nonlabored Labs: 03/08/19 WBC 8.7, hgb 14.1, plt 127 Cr 2.4 Assessment: 78yo man with a h/o CAD s/p CABG, ICM, sinus node dysfunction s/p PM, afib, DM, CKD, DVT on chronic anticoagulation, chronic venous insufficiency and 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 He continues to tolerate cephalexin without issues. Scabbing over knee present a t last visit has resolved. Recommendations: 1. Continue cephalexin but decrease to 500mg BID given renal function; plan for indefinite suppressive therapy as tolerated 2. Again discussed risk of C diff; pt should contact ID office if he experiences >/=3 episo kecia per day watery diarrhea without any clear alternative explanation 3. Pt has no other follow-up needed at [facility] at this time so will contact his PCP to see if continued prescribing of cephalexin can be managed locally Abril Shields MD Infectious Diseases documented in this encounter Plan of Treatment Not on filedocumented as of this encounter Visit Diagnoses + + | Diagnosis | + + | Infection of prosthetic knee joint, subsequent encounter - Primary | + + | residential (current) use of antibiotics | + + documented in this encounter"
--- OUTSIDE RECORDS SUMMARY | ~2020-07-26 | XMS | Encounter Summary ---
Demographics + + + | Address | [address] | | | [place] [address] | + + + | Home Phone | | + + + | Preferred Language | Unknown | + + + | Marital Status | | + + + | Yarsani Affiliation | [id number] | + + + | Race | White | + + + | Ethnic Group | Not or | + + + Author + + + | Author | [facility] | | | and [place] | + + + | Organization | [facility] | | [...] Team Providers + +------+ + | Care Airplane Pilot Helper Name | Role | Phone | + +------+ + | rEin Forrester MD | PCP | | + +------+ + Encounter Details +--------+ + + + + | Date | Type | Department | Care Team | Description | +--------+ + + + + | 10/09/ | Orders Only | [facility] | Robel Ricci | | | 2014 | | CARDIOLOGY [facility] | MD [address] | | | | | [place] [address] | [address] | | | | | [address] | [place] [address] | | | | | [address] | [phone] | | | | | [phone] | | | +--------+ + + + [...] + +--------+ + + + | VAS AORTA ILIAC | Routin | 10/09/2015 | | Results for this | | DUPLEX COMPLETE | e | 12:38 PM | | procedure are in the | | | | PST | | results section. | + +--------+ + + + documented in this encounter Results VAS Aorta Iliac Duplex Complete (10/09/2015 12:38 PM PST) + + | Specimen | + + | | + + + + + | Impressions | Performed At | + + + | 1. This was a technically difficult abdominal and pelvic portion of | | | the study secondary to vessel depth and bowel gas. 2. The abdominal | | | aorta is poorly visualized but with no evidence of significant | | | stenosis or aneurysm. 3. Minimal atherosclerotic changes in the | | | bilateral femoropopliteal arteries. 4. Spuriously elevated pressures | | | in the bilateral lower extremities suggest medial calcification of | | | the trifurcation vessels. | | + + + + + + | Narrative | Performed At | + + + | Patient Name: JÚNIOR MAS Date of : 1940 | | | Performing Physician: Betina Falk MD | | | | | | INDICATIONS Claudication, peripheral arterial disease | | | CONCLUSIONS 1. This was a technically difficult | | | abdominal and pelvic portion of the study secondary to vessel depth | | | and bowel gas. 2. The abdominal aorta is poorly visualized but with | | | no evidence of significant stenosis or aneurysm. 3. Minimal | | | atherosclerotic changes in the bilateral femoropopliteal arteries. 4. | | | Spuriously elevated pressures in the bilateral lower extremities | | | suggest medial calcification of the trifurcation vessels. FINDINGS | | | -------- Study quality: This was a technically difficult abdominal | | | and pelvic portion of the study secondary to vessel depth and bowel | | | gas. Aorta: The abdominal aorta is poorly visualized but with no | | | evidence of significant stenosis or aneurysm. Right Illiac: The | | | right common iliac artery is poorly visualized secondary to overlying | | | bowel gas. Right Illiac: The right external iliac artery is patent | | | with evidence of 1-49% stenosis. Right STAFFING AND SCHEDULING COORDINATOR: The right common femoral | | | artery is patent with 1-49% stenosis. Right PFA: Normal right | | | profunda artery flow. Right SFA: The right superficial femoral artery | | | is patent with 1-49% stenosis. Right POP: The right popliteal artery | | | is patent with 1-49% stenosis. Right trifurcation vessels: | | | Atherosclerotic changes in the trifurcation vessels but with no | | | evidence of significant trifurcation disease. There is suspicion of | | | medial calcification secondary to elevated pressures at the ankle. | | | Left Illiac: The left common iliac artery is poorly visualized | | | secondary to overlying bowel gas. Left Illiac: The left external | | | iliac artery is patent with evidence of 1-49% stenosis. Left STAFFING AND SCHEDULING COORDINATOR: | | | The left common femoral artery is patent with 1-49% stenosis. Left | | | PFA: The left profunda femoris artery demonstrates 1-49% stenosis. | | | Left SFA: The left superficial femoral artery is patent with 1-49% | | | stenosis. Left Popliteal: The left popliteal artery is patent with | | | 1-49% stenosis. Left trifurcation vessels: Atherosclerotic changes in | | | the trifurcation vessels but with no evidence of significant | | | trifurcation disease. MEASUREMENTS GOPAL AC: 55 | | | deg GOPAL AC: 10 deg GOPAL PS: 74.04 cm/s GOPAL PS: 82.62 cm/s | | | STAFFING AND SCHEDULING COORDINATOR AC: 28 deg STAFFING AND SCHEDULING COORDINATOR AC: 39 deg STAFFING AND SCHEDULING COORDINATOR PS: 82.56 cm/s STAFFING AND SCHEDULING COORDINATOR PS: | | | 91.14 cm/s NADIYA AC: 60 deg NADIYA AC: 60 deg NADIYA PS: 151.48 | | | cm/s NADIYA PS: 134.24 cm/s DFA PS: 96.31 cm/s DFA PS: 70.61 | | | cm/s EIA AC: 16 deg EIA AC: 60 deg EIA AC: 60 deg EIA | | | AC: 5 deg EIA PS: 76.82 cm/s EIA PS: 181.34 cm/s EIA PS: | | | 119.32 cm/s EIA PS: 91.45 cm/s Pop AC: 60 deg Pop AC: | | | 60 deg Pop PS: 56.46 cm/s Pop PS: 60.01 cm/s Pop PS: 66.34 | | | cm/s Pop PS: 66.08 cm/s SUPERVISOR TYPE BAR AND SEGMENT AC: 60 deg SUPERVISOR TYPE BAR AND SEGMENT AC: 54 deg | | | SUPERVISOR TYPE BAR AND SEGMENT PS: 104.11 cm/s SUPERVISOR TYPE BAR AND SEGMENT PS: 70.22 cm/s SFA AC: 60 deg SFA | | | PS: 91.13 cm/s SFA PS: 76.77 cm/s SFA PS: 115.14 cm/s SFA | | | PS: 97.24 cm/s SFA PS: 100.83 cm/s SFA PS: 85.17 cm/s AO | | | prox PS: 76.47 cm/s AO dist: 83.77 cm/s AO dist: 1.48 cm | | | Lt. NADIYA: 1.24 cm AO prox: 2.51 cm Rt. NADIYA: 0.92 cm AO | | | mid-dist: 1.83 cm Materials Management Supervisor: MANDEEP Authenticated by: | | | Betina Falk MD Report Date/Time: -- | | | [id number] | | + + + + + | Procedure Note | + + | Jonathan Hidalgo Conversion - 06/17/2019 11:57 PM PDT Patient Name: JÚNIOR MASNorbert of | | : 1940 Performing Physician: Betina Falk | | MD INDICATIONS C | | laudication, peripheral arterial disease CONCLUSIONS 1. This was a technically | | difficult abdominal and pelvic portion of the study secondary to vessel depth and bowel | | gas.2. The abdominal aorta is poorly visualized but with no evidence of significant | | stenosis or aneurysm. 3. Minimal atherosclerotic changes in the bilateral | | femoropopliteal arteries. 4. Spuriously elevated pressures in the bilateral lower | | extremities suggest medial calcification of the trifurcation vessels. | | FINDINGS--------Study quality: This was a technically difficult abdominal and pelvic | | portion of the study secondary to vessel depth and bowel gas.Aorta: The abdominal aorta | | is poorly visualized but with no evidence of significant stenosis or aneurysm. Right | | Illiac: The right common iliac artery is poorly visualized secondary to overlying bowel | | gas. Right Illiac: The right external iliac artery is patent with evidence of 1-49% | | stenosis.Right STAFFING AND SCHEDULING COORDINATOR: The right common femoral artery is patent with 1-49% stenosis.Right | | PFA: Normal right profunda artery flow.Right SFA: The right superficial femoral artery | | is patent with 1-49% stenosis.Right POP: The right popliteal artery is patent with 1-49% | | stenosis.Right trifurcation vessels: Atherosclerotic changes in the trifurcation | | vessels but with no evidence of significant trifurcation disease. There is suspicion of | | medial calcification secondary to elevated pressures at the ankle. Left Illiac: The left | | common iliac artery is poorly visualized secondary to overlying bowel gas. Left Illiac: | | The left external iliac artery is patent with evidence of 1-49% stenosis. Left STAFFING AND SCHEDULING COORDINATOR: The | | left common femoral artery is patent with 1-49% stenosis.Left PFA: The left profunda | | femoris artery demonstrates 1-49% stenosis.Left SFA: The left superficial femoral artery | | is patent with 1-49% stenosis.Left Popliteal: The left popliteal artery is patent with | | 1-49% stenosis.Left trifurcation vessels: Atherosclerotic changes in the trifurcation | | vessels but with no evidence of significant trifurcation disease. | | MEASUREMENTS GOPAL AC: 55 degATA AC: 10 degATA PS: 74.04 cm/sATA PS: | | 82.62 cm/sCFA AC: 28 degCFA AC: 39 degCFA PS: 82.56 cm/sCFA PS: 91.14 cm/sCIA | | AC: 60 degCIA AC: 60 degCIA PS: 151.48 cm/sCIA PS: 134.24 cm/sDFA PS: 96.31 | | cm/sDFA PS: 70.61 cm/sEIA AC: 16 degEIA AC: 60 degEIA AC: 60 degEIA AC: 5 | | degEIA PS: 76.82 cm/sEIA PS: 181.34 cm/sEIA PS: 119.32 cm/sEIA PS: 91.45 cm/sPop | | AC: 60 degPop AC: 60 degPop PS: 56.46 cm/sPop PS: 60.01 cm/sPop PS: 66.34 | | cm/sPop PS: 66.08 cm/sPTA AC: 60 degPTA AC: 54 degPTA PS: 104.11 cm/sPTA PS: | | 70.22 cm/sSFA AC: 60 degSFA PS: 91.13 cm/sSFA PS: 76.77 cm/sSFA PS: 115.14 | | cm/sSFA PS: 97.24 cm/sSFA PS: 100.83 cm/sSFA PS: 85.17 cm/Ricco prox PS: 76.47 | | cm/Ricco dist: 83.77 cm/Ricco dist: 1.48 cmLt. NAIDYA: 1.24 cmAO prox: 2.51 cmRt. NADIYA: | | 0.92 cmAO mid-dist: 1.83 cm Materials Management Supervisor: FEMIuthenticated by: Betina Falk | | MDReport Date/Time: -- [id number] IMPRESSION: 1. This was a technically | | difficult abdominal and pelvic portion of the study secondary to vessel depth and bowel | | gas.2. The abdominal aorta is poorly visualized but with no evidence of significant | | stenosis or aneurysm. 3. Minimal atherosclerotic changes in the bilateral | | femoropopliteal arteries. 4. Spuriously elevated pressures in the bilateral lower | | extremities suggest medial calcification of the trifurcation vessels. | |STAFFING AND SCHEDULING COORDINATOR AC: 39 deg | |STAFFING AND SCHEDULING COORDINATOR PS: 82.56 cm/s | |STAFFING AND SCHEDULING COORDINATOR PS: 91.14 cm/s | |NADIYA AC: 60 deg | |NADIYA AC: 60 deg | |NADIYA PS: 151.48 cm/s | |NADIYA PS: 134.24 cm/s | |DFA PS: 96.31 cm/s | |DFA PS: 70.61 cm/s | |EIA AC: 16 deg | |EIA AC: 60 deg | |EIA AC: 60 deg | |EIA AC: 5 deg | |EIA PS: 76.82 cm/s | |EIA PS: 181.34 cm/s | |EIA PS: 119.32 cm/s | |EIA PS: 91.45 cm/s | |Pop AC: 60 deg | |Pop AC: 60 deg | |Pop PS: 56.46 cm/s | |Pop PS: 60.01 cm/s | |Pop PS: 66.34 cm/s | |Pop PS: 66.08 cm/s | |SUPERVISOR TYPE BAR AND SEGMENT AC: 60 deg | |SUPERVISOR TYPE BAR AND SEGMENT AC: 54 deg | |SUPERVISOR TYPE BAR AND SEGMENT PS: 104.11 cm/s | |SUPERVISOR TYPE BAR AND SEGMENT PS: 70.22 cm/s | |SFA AC: 60 deg | |SFA PS: 91.13 cm/s | |SFA PS: 76.77 cm/s | |SFA PS: 115.14 cm/s | |SFA PS: 97.24 cm/s | |SFA PS: 100.83 cm/s | |SFA PS: 85.17 cm/s | |AO prox PS: 76.47 cm/s | |AO dist: 83.77 cm/s | |AO dist: 1.48 cm | |Lt. NADIYA: 1.24 cm | |AO prox: 2.51 cm | |Rt. NADIYA: 0.92 cm | |AO mid-dist: 1.83 cm | | | |Materials Management Supervisor: MANDEEP | |Authenticated by: Betina Falk MD | |Report Date/Time: -- [id number] | | | |IMPRESSION: | |1. This was a technically difficult abdominal and pelvic portion of the study secondary to vessel depth and bowel gas. | |2. The abdominal aorta is poorly visualized but with no evidence of significant stenosis or aneurysm. 3. Minimal atherosclerotic changes in the bilateral femoropopliteal arteries. 4. Spuriously elevated pressures in the bilateral lower extremities | |suggest medial calcification of the trifurcation vessels. | + + documented in this encounter Visit Diagnoses Not on filedocumented in this encounter"
--- OUTSIDE RECORDS SUMMARY | ~2020-07-26 | XMS | Encounter Summary ---
Demographics + + + | Address | [address] | | | [place] [address] | + + + | Home Phone | | + + + | Preferred Language | Unknown | + + + | Marital Status | | + + + | Sabianism Affiliation | 1077 | + + + | Race | White | + + + | Ethnic Group | Not or | + + + Author + + + | Author | [facility] | | | and [place] | + + + | Organization | [facility] | | [...] Team Providers + +------+ + | Care Pearl Digger Name | Role | Phone | + +------+ + PCP | Unavailable | + +------+ + Encounter Details +--------+ + + + + | Date | Type | Department | Care Team | Description | +--------+ + + + + | 09/07/ | Hospital | [facility] | Drew Hurst | | | 2012 - | Encounter | [facility] | MD [address] | | | | | [place] | [place]NA[place]O [place]LE | | | 09/09/ | | [facility] | JANINA BOWERS [id number] | | | 2012 | | [id number] | [phone] | | | | | [phone] | | | +--------+ + + + [...] documented as of this encounter Discharge Summaries Drew Hurst MD - 09/09/2013 9:39 AM PSTFormatting of this note might be differe nt from the original. Discharge Summaries by Drew Hurst MD at 09/09/13 2774 Author: Drew Hurst MD Service: Orthopedic Surgery Author Type: Physician Filed: 09/09/13 0941 Date of Service: 09/09/13 0939 Status: Signed Commercial Service Technician: Drew Hurst MD (Physician) [facility] Service: Orthopedic Surgery Discharge Summary Date of Admission: 09/07/2013 Date of Discharge: 09/09/2013 Discharge Physician: DREW HURST MD Treatment Team: Admitting Provider: Drew Hurst MD Discharge Diagnoses: Active Problems: * No active hospital problems. * Resolved Problems: * No resolved hospital problems. * Procedures: Procedure(s) with comments: KNEE - TOTAL - alisha component alisha navigation HOSPITAL COURSE: Pt was up and ambulating post-op day 1. Foss cath was removed post-op day 1. Pt required no transfusion. Patient was tolerating a general diet and cleared by PT for disch arge to home. Past Medical History Diagnosis Date Atrial fibrillation Chronic kidney disease Other chronic pain CHF (congestive heart failure) Coronary artery disease Deep vein thrombosis (DVT) Diabetes mellitus type II Hyperlipidemia Hypertension Joint pain Old myocardial infarction Neuromuscular disorder Unspecified visual disturbance Past Surgical History Procedure Date Abdominal surgery Coronary artery bypass graft Cardiac catheterization Cataract extraction Colonoscopy Eye surgery Tonsillectomy Knee surgery 09/07/2013 Procedure: KNEE - TOTAL; Surgeon: Drew Hurst MD; Location: [facility] OR; Servic e: Orthopedics; Laterality: Right; alisha component alisha navigation Allergies Allergen Reactions Sulfa Antibiotics Hives Prescriptions prior to admission Medication Sig Dispense Refill acetaminophen-codeine (TYLENOL #2) 300-15 MG per tablet Take 1 tablet by mouth every 4 (four) hours as needed. allopurinol (ZYLOPRIM) 300 MG tablet Take 300 mg by mouth daily. betamethasone dipropionate (DIPROLENE) 0.05 % cream Apply topically 2 (two) times russell y. carvedilol (COREG) 3.125 MG tablet Take 3.125 mg by mouth 2 (two) times daily with meal s. colchicine 0.6 MG tablet Take 0.6 mg by mouth daily. fish oil-omega-3 fatty acids 1000 MG capsule Take 2 g by mouth daily. folic acid (FOLVITE) 1 MG tablet Take 1 mg by mouth daily. furosemide (LASIX) 20 MG tablet Take 20 mg by mouth 2 (two) times daily. glyBURIDE (DIABETA) 2.5 MG tablet Take 2.5 mg by mouth daily with breakfast. losartan (COZAAR) 25 MG tablet Take 25 mg by mouth daily. metFORMIN (GLUCOPHAGE) 500 MG tablet Take 500 mg by mouth 2 (two) times daily with meal s. Multiple Vitamins-Minerals (MULTIVITAMIN WITH MINERALS) tablet Take 1 tablet by mouth d aily. nystatin-triamcinolone (MYCOLOG II) cream Apply topically 4 (four) times daily. nystatin-triamcinolone (MYCOLOG) ointment Apply topically 2 (two) times daily. potassium chloride (K-DUR) 10 MEQ tablet Take 10 mEq by mouth 2 (two) times daily. simvastatin (ZOCOR) 40 MG tablet Take 40 mg by mouth nightly. warfarin (COUMADIN) 5 MG tablet Take 5 mg by mouth daily. DATA PLAN Discharge home on ususal Coumadin dose post-op. Will F/U in 10 days for wound check and re-evaluation. Disposition: Home Condition: Stable Code Status: Full Code No discharge procedures on file. Follow up: 7-10 days with Drew Hurst MD (salon shampoo assistant Alison Tompkins) [facility] [address] [place] [id number] . Current Discharge Medication List CONTINUE these medications which have NOT CHANGED Details acetaminophen-codeine (TYLENOL #2) 300-15 MG per tablet Take 1 tablet by mouth every 4 (fou r) hours as needed. allopurinol (ZYLOPRIM) 300 MG tablet Take 300 mg by mouth daily. betamethasone dipropionate (DIPROLENE) 0.05 % cream Apply topically 2 (two) times daily. carvedilol (COREG) 3.125 MG tablet Take 3.125 mg by mouth 2 (two) times daily with meals. colchicine 0.6 MG tablet Take 0.6 mg by mouth daily. fish oil-omega-3 fatty acids 1000 MG capsule Take 2 g by mouth daily. folic acid (FOLVITE) 1 MG tablet Take 1 mg by mouth daily. furosemide (LASIX) 20 MG tablet Take 20 mg by mouth 2 (two) times daily. glyBURIDE (DIABETA) 2.5 MG tablet Take 2.5 mg by mouth daily with breakfast. losartan (COZAAR) 25 MG tablet Take 25 mg by mouth daily. metFORMIN (GLUCOPHAGE) 500 MG tablet Take 500 mg by mouth 2 (two) times daily with meals. Multiple Vitamins-Minerals (MULTIVITAMIN WITH MINERALS) tablet Take 1 tablet by mouth daily . nystatin-triamcinolone (MYCOLOG II) cream Apply topically 4 (four) times daily. nystatin-triamcinolone (MYCOLOG) ointment Apply topically 2 (two) times daily. potassium chloride (K-DUR) 10 MEQ tablet Take 10 mEq by mouth 2 (two) times daily. simvastatin (ZOCOR) 40 MG tablet Take 40 mg by mouth nightly. warfarin (COUMADIN) 5 MG tablet Take 5 mg by mouth daily. Discharge took 20 minutes, to include final examination, discussion of admission, and prepa ration of prescriptions, instructions for on-going care, follow-up and documentation of disc harge summary. DREW HURST MD 09/09/2013 9:39 AM documente d in this encounter Progress Notes Conversion Transaction, Provider Unknown - 09/09/2013 4:28 PM PSTFormatting of this note m ight be different from the original. Progress Notes by ILSA Wallace at 09/09/131627 Author: ILSA Wallace Service: (none) Author Type: Occupational Therapist Filed: 09/09/131627 Date of Service: 09/09/131627 Status: Signed Commercial Service Technician: ILSA Wallace (Occupational Therapist) 09/09/13 9104 Precautions LE Precaution(s) RLE (WBAT ) Home Environment Type of Home Home two story (daylight basement; pt does not need to access basement ) Home Exterior Layout Ramp Home Interior Layout Lives on main level with bedroom/bathroom Bathroom Shower/Tub Shower unit with threshold Bathroom Toilet Standard Bathroom Equipment Grab bars in shower/bath Bathroom Accessibility Accessible via walker Home Equipment Walker front wheeled;Cane single point Prior Function Level of Price Modified independent with functional mobility Lives With Spouse Receives Help From Family ADL Assistance Independent Home ADL's Independent 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 Pt's was present and is able to assist pt upon d/c prn. Pt and pt's provided w ith AE handout including recommendations including sock aid and shower chair. Pain Screening Currently in Pain No/denies Vision-Basic Assessment Current Vision Reading glasses Cognition Overall Cognitive Status WFL Orientation Level Oriented Sensation Light Touch No apparent deficits RUE Assessment RUE Assessment WFL LUE Assessment LUE Assessment WFL Hand Function Gross Grasp Functional Functional Gross Grasp Able to hold objects in non-dominant hand;Able to hold objects in do minant hand Coordination Functional Assessment Assessment Decreased ADL status;Decreased endurance Prognosis Good;With family onver zoe Transaction, Provider Unknown - 09/09/2013 3:34 PM PST Progress Notes by Marta Lopez RN at 09/09/13 1534 Author: Marta Lopez RN Service: (none) Author Type: Registered Nurse Filed: 09/09/13 1536 Date of Service: 09/09/131533 Status: Signed Commercial Service Technician: Marta Lopez RN (Registered Nurse) Patient discharged to home in company of , via . All discharge instructions to includ e medications and appointments reviewed with patient and his . Prescriptions given to wi fe. PIV removed, catheter intact, bandage applied. All questions answered. onver zoe Transaction, Provider Unknown - 09/09/2013 11:37 AM PST Case Management by Rita Borja RN at 09/09/13 165 Author: Rita Borja RN Service: (none) Author Type: Registered Nurse Filed: 09/09/13 1138 Date of Service: 09/09/131136 Status: Signed Commercial Service Technician: Rita Borja RN (Registered Nurse) HEMANT Iqbal Has written d/c order for home. Pt and family comfortable with care as home is wel l set up for this and family/pt capable. onver zoe Transaction, Provider Unknown - 09/09/2013 10:32 AM PST Progress Notes by Marta Lopez RN at 09/09/13 1032 Author: Marta Lopez RN Service: (none) Author Type: Registered Nurse Filed: 09/09/13 1033 Date of Service: 09/09/13 1032 Status: Signed Commercial Service Technician: Marta Lopez RN (Registered Nurse) CHF education completed with patient and his , packet given to patient. All questions a nswered onver zoe Transaction, Provider Unknown - 09/09/2013 10:10 AM PST Progress Notes by Shayla Hennessy LPN at 09/09/13 1010 Author: Shayla Hennessy LPN Service: (none) Author Type: Registered Nurse Filed: 09/09/13 1010 Date of Service: 09/09/13 1010 Status: Signed Commercial Service Technician: Shayla Hennessy LPN (Registered Nurse) Visited with pt this am regarding warfarin education. [facility]. Pt has no questions regarding warfarin at this time. onver zoe Transaction, Provider Unknown - 09/09/2013 9:55 AM PST Progress Notes by Irina Cooley PTA at 09/09/13 0955 Author: Irina Cooley PTA Service: (none) Author Type: Food Processor Filed: 09/09/13 1310 Date of Service: 09/09/13 0955 Status: Signed Commercial Service Technician: rIina Cooley PTA (Food Processor) 09/09/13 0955 PT Last Visit PT Received On 09/09/13 Requires PT Follow Up Yes Follow up PT Only? No Assistance Required 1 person Precautions LE Precaution(s) RLE (WBAT) Cognition Overall Cognitive Status WFL Orientation Level Oriented Bed Mobility Supine to Sit Min assist (1 LE OOB) Scooting Standby assist Transfers Sit to/from Stand Minimal assist (steadying/contact guard);Verbal instruction Mobility Weight Bearing Status WBAT RLE Ambulation Assistance Minimal assist;Verbal instruction Maximal Ambulation Distance (feet) 120 Total Ambulation Distance (feet) 120 Distance limited by? Patient's ability Pattern Decreased farshad;Step to;Left swing foot doesn't pass stance foot Assistive Device Walker front wheeled Activity Tolerance Activity Tolerance Patient limited by fatigue Nurse Made Aware RN aware Plan Treatment/Interventions Continue per Primary PT POC Progress Progressing toward goals Recommendation Recommendations Return to prior living situation [email or web address] , Drew Mendoza MD - 09/09/2013 9:38 AM PST Progress Notes by Drew Hurst MD at 09/09/13937 Author: Drew Hurst MD Service: Orthopedic Surgery Author Type: Physician Filed: 09/09/13938 Date of Service: 09/09/13937 Status: Signed Commercial Service Technician: Drew Hurst MD (Physician) Subjective: Post-Operative Day: 2 Status Post right Total Knee Arthroplasty Systemic or Specific Complaints:No Complaints Objective: Patient Vitals for the past 24 hrs: BP Temp Temp src Pulse Resp SpO2 Weight 09/09/13 0810 111/53 mmHg 97.8 F (36.6 C) Oral 73 17 97 % - 09/09/13 0550 - - - - - 97 % - 09/09/13 0519 - - - - - - 103.2 kg (227 lb 8.2 oz) 09/09/13 0301 121/59 mmHg 97.5 F (36.4 C) Oral 78 16 96 % - 09/08/13 2313 - - - - - 93 % - 09/08/13 2309 124/58 mmHg 97.8 F (36.6 C) Oral 81 18 90 % - 09/08/13 2009 134/60 mmHg 98.1 F (36.7 C) Oral 88 18 92 % - 09/08/13 1200 127/61 mmHg 97.5 F (36.4 C) Oral 88 18 97 % - 09/08/13 1148 127/61 mmHg 97.5 F (36.4 C) Oral 88 18 97 % - General: alert, appears stated age and cooperative Wound: Wound clean and dry no evidence of infection. Motion: Extension: Full Extension DVT Exam: No evidence of DVT seen on physical exam. Data Review CBC: Lab Results Component Value Date WBC 10.6 09/08/2013 RBC 3.73* 09/08/2013 HGB 11.5* 09/08/2013 HCT 33.5* 09/08/2013 PLT 110* 09/08/2013 Assessment: Status Post right Total Knee Arthroplasty. Doing well postoperatively. Plan: Discharge today, Return to Clinic: 10 days. Resume Warfarin dose. Will get INR checked on Friday in [place]. DREW HURST MD 09/09/2013 9:38 AM onversio n Transaction, Provider Unknown - 09/08/2013 1:16 PM PSTFormatting of this note might be di fferent from the original. Progress Notes by Ale Yee RD, CDE at 09/08/13 1316 Author: Ale Yee RD, VEDA Service: (none) Author Type: Dinker Filed: 09/08/13 2700 Date of Service: 09/08/131315 Status: Signed Commercial Service Technician: Ale Yee RD, CDE (Dinker) Met with pt and spouse. Reports he follows up regularly with his pcp. States his HbA1c wa s 6.4 earlier this year. He takes Glyburide and Metformin at home. Checks his blood sugar fairly regularly at home. Has had diabetes education and feels like he understands carbohyd rates and portion sizes. Has everything he needs to take care of his diabetes at home and p lans to follow up with his pcp. Elevated blood sugars here, most likely stress related. Has been started on medium dose co rrectional scale insulin and metformin. Ale Yee RD, MPH, CDE, Dinker 09/08/2013 1:39 PM onver zoe Transaction, Provider Unknown - 09/08/2013 12:35 PM PST Progress Notes by Mireya Hoyos PT at 09/08/13 1235 Author: Mireya Hoyos PT Service: (none) Author Type: Physical Therapist Filed: 09/08/13 1410 Date of Service: 09/08/13 1235 Status: Signed Commercial Service Technician: Mireya Hoyos PT (Physical Therapist) 09/08/13 1235 PT Last Visit PT Received On 09/08/13 Reason for Treatment Knee replacement Requires PT Follow Up Yes Follow up PT Only? No Assistance Required 1 person Termite Exterminator Needed No Precautions LE Precaution(s) RLE (WBAT ) Other Comments Comments Please see group note attached, pt amb to group session w/PT, pt supine in bed upo n arrival. Cognition Overall Cognitive Status WFL Orientation Level Oriented Modalities Modalities Other therapy Other Therapy Ed on mobility techniques and car transfer techniques Activity Tolerance Activity Tolerance Patient limited by pain Plan Treatment/Interventions Continue per Primary PT POC Progress Progressing toward goals Recommendation Recommendations Continue acute care therapy Group Session: Therapy session in group setting today to promote education, socialization, & motivation. T kd s session included: Seated exercise: Marching, LAQ, Heel raises, Glut squeezes: [id number] Standing exercise: Marching, Hip Abd, Hip ext: [id number] Patients actively encouraged each other throughout activities and motivated each other thro h discussion of goals/plans after discharge. Educated pt on car transfer technique with demonstration. Pt ambulated to group session and back to room w/PT. Mireya Hoyos PT,DPT, 09/08/2013, 12:35PM Drew Snyder MD - 09/08/2013 11:43 AM PST Progress Notes by Drew Hurst MD at 09/08/13 1143 Author: Drew Hurst MD Service: Orthopedic Surgery Author Type: Physician Filed: 09/08/13 1147 Date of Service: 09/08/13 1143 Status: Signed Commercial Service Technician: Drew Hurst MD (Physician) Subjective: Post-Operative Day: 1 Status Post right Total Knee Arthroplasty Systemic or Specific Complaints:No Complaints Objective: Patient Vitals for the past 24 hrs: BP Temp Temp src Pulse Resp SpO2 09/08/13 0804 110/54 mmHg 97.6 F (36.4 C) Oral 66 18 98 % 09/08/13 0411 121/60 mmHg 98 F (36.7 C) Axillary 65 18 96 % 09/07/13 2346 116/56 mmHg 97.7 F (36.5 C) Oral 82 18 96 % 09/07/132009 137/64 mmHg 97.6 F (36.4 C) Oral 86 14 97 % 09/07/13 1700 - - - 61 - - 09/07/13 1600 116/56 mmHg - - 58 - - 09/07/13 1500 - - - 78 - - 09/07/13 1202 123/54 mmHg 97.5 F (36.4 C) - 84 13 99 % 09/07/13 1200 123/54 mmHg - - 76 12 94 % 09/07/13 1155 144/52 mmHg - - 70 13 96 % 09/07/13 1150 144/64 mmHg - - 72 13 95 % 09/07/13 1145 - - - 74 14 95 % General: alert, appears stated age and cooperative Wound: Wound clean and dry no evidence of infection. Motion: Extension: Full Extension DVT Exam: No evidence of DVT seen on physical exam. Data Review CBC: Lab Results Component Value Date WBC 10.6 09/08/2013 RBC 3.73* 09/08/2013 HGB 11.5* 09/08/2013 HCT 33.5* 09/08/2013 PLT 110* 09/08/2013 CB-300s. Assessment: Status Post right Total Knee Arthroplasty. Doing well postoperatively. Plan: Continues current post-op course. Discontinue foss. High Dose Correctional insulin sco re. DREW HURST MD 09/08/2013 11:43 AM onversio n Transaction, Provider Unknown - 09/08/2013 8:46 AM PSTFormatting of this note might be di fferent from the original. Case Management by ABBIE Delgado at 09/08/13845 Author: ABBIE Delgado Service: (none) Author Type: Tool Polisher Filed: 09/08/1347 Date of Service: 09/08/13845 Status: Signed Commercial Service Technician: ABBIE Delgado (Tool Polisher) CM met with pt for discharge planning. Pt is 73 years old and lives with his in a 2-le alan home with a ramp at the main entrance. Pt has a [id number]. Pt owns a walker. Pt's w mike will assist with his daily living activities including personal hygiene, grooming, dress ing, feeding, cooking, transportation and ambulation. Pt had no resource concerns at this ti me. CM will continue to follow as needed. Discharge Plan: Home. Eric Sanabria AUTO VINYL TOP INSTALLER 09/08/13 0846 Discharge Planning Evaluation Admitting Diagnosis Knee replacement Readmission No Living Arrangements Spouse/significant other Support Systems Spouse/significant other Type of Residence Private residence House type House 2 story Steps to enter Other (comment) (ramp) Bathrooms on 1st Floor 2-Full Caregiver after Discharge Yes Relationship to Patient spouse Mental Status Oriented Anticipated Discharge Plan Post Acute Care Needs None at this time Resources Financial concerns No Transportation issues No Patient/Family concerns No Prescription Plan Yes Met with: Patient and discussed discharge planning, Pt is a 73 y.o., male Patient's PCP is: TITA CHRISTOPHER Patient's insurance: Medicare Coverage concerns: None Medication coverage/concerns: None Community resources utilized / needed: None Assistance in transportation: Not needed. Identification of any specific education / training: None Barriers to Discharge / Alternative housing needed: None Anticipated DCP: Home onver zoe [place] Provider Unknown - 09/08/2013 8:35 AM PST Progress Notes by Mireya Hoyos PT at 09/08/13 0894 Author: Mireya Hoyos PT Service: (none) Author Type: Physical Therapist Filed: 09/08/13 5124 Date of Service: 09/08/13 0850 Status: Signed Commercial Service Technician: Mireya Hoyos PT (Physical Therapist) 09/08/13 0811 PT Last Visit PT Received On 09/08/13 Reason for Treatment Knee replacement Requires PT Follow Up Yes Follow up PT Only? No Assistance Required 1 person Termite Exterminator Needed No Precautions LE Precaution(s) RLE (WBAT ) Other Comments Comments Pt seated in chair upon arrival, agreeable to therapy, sit-stand SBA, pt amb 100ft Dmitry w/FWW, pt seated in chair @ end of session. Cognition Overall Cognitive Status WFL Orientation Level Oriented Transfers Sit to/from Stand Standby assist Mobility Weight Bearing Status WBAT RLE;WBAT LLE Ambulation Assistance Minimal assist Maximal Ambulation Distance (feet) 100ft Total Ambulation Distance (feet) 100ft Distance limited by? Patient's ability Pattern Decreased farshad Assistive Device Walker front wheeled Modalities Modalities Other therapy Other Therapy Ed on mobility techniques Activity Tolerance Activity Tolerance Patient limited by fatigue;Patient limited by pain Nurse Made Aware RN aware Plan Treatment/Interventions Continue per Primary PT POC Progress Progressing toward goals Recommendation Recommendations Continue acute care therapy;Return to prior living situation onver zoe Transaction, Provider Unknown - 09/07/2013 8:31 PM PST Progress Notes by Jeimy Ayala RN at 09/07/132030 Author: Jeimy Ayala RN Service: (none) Author Type: Registered Nurse Filed: 09/07/132032 Date of Service: 09/07/132030 Status: Signed Commercial Service Technician: Jeimy Ayala RN (Registered Nurse) Spoke with Dr. Hurst in regards to creams and ointments ordered. Pt. States that he only u ses as needed and the order has been clarified and changed per pt. Request and Dr. Hurst ap proval. (See MAR) onver zoe Transaction, Provider Unknown - 09/07/2013 4:11 PM PST Progress Notes by ILSA Wallace at 09/07/131610 Author: ILSA Wallace Service: (none) Author Type: Occupational Therapist Filed: 09/07/13 161 Date of Service: 09/07/131610 Status: Signed Commercial Service Technician: ILSA Wallace (Occupational Therapist) 09/07/13 1343 Plan Requires OT Follow Up Unavailable (Pt with PT ) Pt unavailable upon OT arrival. Plan to re-attempt evaluation/treatment as census permits ILSA Wallace 09/07/2013 onver zoe Transaction, Provider Unknown - 09/07/2013 1:25 PM PST Progress Notes by Gilberto Carl, PT at 09/07/13 1325 Author: Gilberto Carl PT Service: (none) Author Type: Physical Therapist Filed: 09/07/13 3534 Date of Service: 09/07/13 1325 Status: Signed Commercial Service Technician: Gilberto Carl PT (Physical Therapist) 09/07/13 1325 PT Last Visit PT Received On 09/07/13 Reason for Treatment Knee replacement Requires PT Follow Up Yes PT Eval/Reassessment Date 09/07/13 Termite Exterminator Needed No Precautions LE Precaution(s) RLE (WBAT) Plan Treatment/Interventions Bed mobility training;Family training;Gait training;Monitor vital s igns;Review HEP;Review precautions;Therapeutic exercise;Transfer training PT Frequency Twice a day;Once per day Care Duration (# of days) 7 # of days Home Environment Type of Home Home two story (daylight basement) Home Exterior Layout Entry steps none;1-3 steps;Ramp Home Interior Layout Lives on main level with bedroom/bathroom Bathroom Shower/Tub Shower unit with threshold Bathroom Toilet Standard Bathroom Equipment Grab bars in shower/bath Bathroom Accessibility Accessible via walker Home Equipment Walker front wheeled;Cane single point Recommendation Recommendations Return to prior living situation;Outpatient PT Equipment Recommended Toilet seat raised;Shower chair with back Prior Function Level of Price Modified independent with functional mobility (Pt used SPC prior to sx) Lives With Spouse Employment Retired for age ([employer] full-time) RUE Assessment RUE Assessment WFL (rotator cuff pain limits GH elevation) LUE Assessment LUE Assessment WFL RLE Assessment RLE Assessment (s/p TKA, active knee ext present but weak, unable to SLR) LLE Assessment LLE Assessment WFL Cognition Overall Cognitive Status WFL Orientation Level Oriented Sensation Light Touch No apparent deficits Vision-Basic Assessment Current Vision Reading glasses Assessment of Patient Status Assessment of Patient Status Decreased LE strength;Decreased LE ROM;Decreased functional m obility;Pain;Precautions Prognosis Should progress with skilled therapy intervention Safety Devices Safety Devices in Place (call light) Restraints Initially in Place No 09/07/13 1325 PT Last Visit PT Received On 09/07/13 Reason for Treatment Knee replacement Requires PT Follow Up Yes PT Eval/Reassessment Date 09/07/13 Termite Exterminator Needed No Precautions LE Precaution(s) RLE (WBAT) Other Comments Comments Chart reviewed, PT eval completed, Pt is a 73 yo male s/p R TKA. Pt educated jennifer meeks transfers, PT POC, goals. was present for eval. Cognition Overall Cognitive Status WFL Orientation Level Oriented Bed Mobility Supine to Sit Min assist (1 LE OOB) Sit to Supine Min assist (1 LE into bed);Verbal instruction Scooting Standby assist Transfers Sit to/from Stand Minimal assist (steadying/contact guard);Verbal instruction Mobility Weight Bearing Status WBAT RLE Ambulation Assistance Minimal assist Maximal Ambulation Distance (feet) 25 Total Ambulation Distance (feet) 25 Distance limited by? Patient's ability Pattern Decreased farshad;Step to;Left swing foot doesn't pass stance foot Assistive Device Walker front wheeled Supine Supine-Exercise Type Ankle pumps;Quad sets;Glut sets;Short arc quads;SLR;ABD/ADD;Heel slide s;Heel prop Supine-Exercise Comments 10 reps each with help of a handout Activity Tolerance Activity Tolerance (lightheadedness) Nurse Made Aware mob status, pt is not to rest his R knee in bent position Safety Devices Safety Devices in Place (call light) Restraints Initially in Place No Plan Treatment/Interventions Bed mobility training;Family training;Gait training;Monitor vital s igns;Review HEP;Review precautions;Therapeutic exercise;Transfer training PT Frequency Twice a day;Once per day Care Duration (# of days) 7 # of days Recommendation Recommendations Return to prior living situation;Outpatient PT Equipment Recommended Toilet seat raised;Shower chair with back onver zoe Transaction, Provider Unknown - 09/07/2013 12:57 PM PST Progress Notes by Shelly Rojo RPH at 09/07/13 1257 Author: Shelly Rojo RPH Service: (none) Author Type: Pharmacist Filed: 09/07/13 1257 Date of Service: 09/07/13 1257 Status: Signed Commercial Service Technician: Shelly Rojo RPH (Pharmacist) Renal Dosing Monitoring: Duane Mas 73 y.o. male Pharmacy dosing for renal function per Dr. Hurst Scr=1.58 Crcl~47ml/min Plan per protocol: Medication / Dose: no medications need adjustments at this time. Pharmacy will continue monitoring patient for appropriate dosing per renal function. 09/07/2013 12:55 PM Pharmacist: Shelly Rojo docume nted in this encounter H&P Notes Drew Hurst MD - 09/06/2013 4:25 PM PSTFormatting of this note might be differe nt from the original. H&P by Drew Hurst MD at 09/06/13 4060 Author: Drew Hurst MD Service: Orthopedic Surgery Author Type: Physician Filed: 09/06/13 3014 Date of Service: 09/06/131624 Status: Signed Commercial Service Technician: Drew Hurst MD (Physician) Subjective: Patient is admitted for right total knee arthroplasty. Patient is a 73 y.o. male presented with a history of pain in the right knee. Onset of symp toms was gradual starting 3 years ago with gradually worsening course since that time. Patie nt has failed antiinflamatories as they no longer work to relieve pain. Injections are no longer helpful. The patient noted no past surgery on the right knee. Patient has been treat ed conservatively with ofoo-heu-ixxabyn NSAIDs and activity modification. Patient currently rates pain in the knee at 8 out of 10 with activity. There is no pain at night.. There are no active problems to display for this patient. Past Medical History Diagnosis Date Atrial fibrillation Chronic kidney disease Other chronic pain CHF (congestive heart failure) Coronary artery disease Deep vein thrombosis (DVT) Diabetes mellitus type II Hyperlipidemia Hypertension Joint pain Old myocardial infarction Neuromuscular disorder Unspecified visual disturbance Past Surgical History Procedure Date Abdominal surgery Coronary artery bypass graft Cardiac catheterization Cataract extraction Colonoscopy Eye surgery Tonsillectomy No prescriptions prior to admission Allergies Allergen Reactions Sulfa Antibiotics Hives History Substance Use Topics Smoking status: Not on file Smokeless tobacco: Never Used Alcohol Use: No No family history on file. Review of Systems Pertinent items are noted in HPI. Objective: No data found. General appearance: alert, appears stated age and cooperative Lungs: clear to auscultation bilaterally Heart: regular rate and rhythm, S1, S2 normal, no murmur, click, rub or gallop Musculoskeletal: There is no redness, warmth, or swelling of the joints. Full range of mo tion noted. Motor strength is 5 out of 5 all extremities bilaterally. Tone is normal. Imaging Review Plain radiographs demonstrate severe degenerative joint disease of the right knee. The over all alignment is mild varus. The bone quality appears to be good for age and reported activi ty level. Assessment: End stage arthritis, right knee Plan: The patient history, physical examination and imaging studies are consistent with advanced degenerative joint disease of the right knee. The patient has failed all non-operative and conservative measures for pain relief. Patient has failed PT, injections, and anti-inflama tories for over 3 months time. The treatment options including medical management, injection therapy arthroscopy and arthroplasty were discussed at length. The risks and benefits of to jenny knee arthroplasty were presented and reviewed. The risks due to aseptic loosening, infec tion, stiffness, patella tracking problems, thromboembolic complications among others were d iscussed. The araujo components of total knee navigation were also discussed and risk of femur /tibia fracture were discussed. The patient acknowledged the explanation, agreed to proceed with the plan and a consent was signed. DREW HURST MD 09/06/2013 4:25 PM documente d in this encounter Miscellaneous Notes Plan of Care - Conversion Transaction, Provider Unknown - 09/07/2013 12:36 PM PST Plan of Care by Jeimy Ayala RN at 09/07/13 1237 Author: Jeimy Ayala RN Service: (none) Author Type: Registered Nurse Filed: 09/07/13 1237 Date of Service: 09/07/131235 Status: Signed Commercial Service Technician: Jeimy Ayala RN (Registered Nurse) Problem: Safety Goal: Patient will be injury free during hospitalization Assess and monitor vitals signs, neurological status including level of consciousness and o rientation. Assess patient s risk for falls and implement fall prevention plan of care and interventions per hospital policy. Ensure arm band on, uncluttered walking paths in room, adequate room lighting, call light a nd overbed table within reach, bed in low position, wheels locked, side rails up per policy, and non-skid footwear provided. Intervention: Provide and maintain safe environment Pt. Is alert and oriented. Bed is in the lowest position with wheels locked. Bedside table, call light and phone are within reach. Non-skid socks have been provided and on. Adequate l ighting is used and walkways are free of clutter. Staff will continue to monitor and maintai n safe environment. p Not e - Drew Hurst MD - 09/07/2013 9:58 AM PSTFormatting of this note might be diff erent from the original. Op Note by Drew Hurst MD at 09/07/13957 Author: Drew Hurst MD Service: Orthopedic Surgery Author Type: Physician Filed: 09/07/13 1001 Date of Service: 09/07/13957 Status: Signed Commercial Service Technician: Drew Hurst MD (Physician) [facility] Service: Orthopedic Surgery Operative Report PREOPERATIVE DIAGNOSIS: right knee DJD POSTOPERATIVE DIAGNOSIS: right knee DJD PROCEDURE: right total knee arthroplasty with navigation SURGEON: Drew Hurst MD [employer]: Kaur Del Angel MD ANESTHESIA: General ANESTHESIOLOGIST: Gopal AGUILAR FLUIDS: 1500cc ESTIMATED BLOOD LOSS: minimal TOURNIQUET TIME: 90 min Right thigh URINE OUTPUT: 250cc COMPLICATIONS: none IMPLANTS: [place] [employer] Total Knee system 1- Size 4 beaded press-fit femoral component 2- Size 5 tibial tray 3- Size 4x13mm tibial insert 4- Size 38 asymmetric polyethylene patellar button NAVIGATION: Pre- 8 degrees varus 8 degrees flexion Post- 0 degrees varus/valgus 3 degrees flexion INDICATION: PROCEDURE: After proper identification of the patient in the preop holding area, I personally marked t he operative extremity, and the patient then was taken to the operating room and placed supi ne on the operating room table. Following induction of satisfactory general anesthesia, a p neumatic tourniquet was placed high on the thigh, and the right lower extremity was then pre pped and draped in the usual sterile orthopaedic fashion. A timeout was then performed, conf irming patient identity, procedure to be performed, and that perioperative antibiotics had b een given. Radiographs were posted and implants were available outside the room. The incis ion then was marked in the typical anterior midline approach to the knee, the percutaneous s tab wounds for the navigation pins were marked four fingerbreadths distal and proximal to th e patella. I first made the percutaneous stab wounds, and then placed the tibial and femoral pins for the navigation apparatus. I assembled the navigation apparatus. The extremity was then exs anguinated, and the tourniquet elevated to 250 mm Hg for 90 minutes. The skin incision was made and carried down to the prepatellar fascia. A median parapatellar arthrotomy was made a nd the patella was subluxed laterally. While subluxing the patella I measure the patella wi th a caliper, and then made the patellar cut to appropriate thickness for a 38 mm patellar b utton. I then navigated the pre-procedure points for hip flexion, hip center, distal femur, proximal tibia, and ankle. I turned my attention first to the tibia. Using the extramedullary tibial alignment helen an d the navigation unit, I placed the tibial cutting block, assuring correct rotation, varus/v algus alignment, posterior tibial slope, and depth of cut. I then pinned the cutting block in place and made the tibial cut. I then removed the tibial wafer and cutting block. Then, using the ligament tensioning device, I checked flexion/extension gaps, assuring it was symm etric. I then turned my attention to the femur. Again using the navigation unit, I positioned the distal femoral cutting block, assuring appropriate varus/valgus alignment, flexion, rotatio n, and depth of cut. I then pinned the block in place and made the distal cut. After remov ing the bone fragments and cutting block, I sized the distal femur and found it to be a size 4. I then placed the size 4 femoral speed cutting block and made my cuts: anterior, experimental rocketsled mechanic ior, anterior chamfer, and posterior chamfer. I removed the bony fragments, then placed a l aminar calendering machine operator in the flexion gap and removed the soft tissue including medial and lateral menisci, and the ACL. I then removed posterior osteophytes from the femur and tibia. I the n again placed the ligament tensioner, and assured appropriate ligamentous tension in flexio n and extension as well as symmetric flexion and extension gaps. I then sized the tibia, and placed the size 5 trial, pinned it in place, and punched the ti bial keel. I then place the trial poly insert, then the femoral component. I drilled for t he femoral lugs. I then obtained navigation points with the trials and found that we had co rrected the flexion to 3 degrees and the varus/valgus to 0 degrees. These components were then selected and opened on the back table. I then sized the patella, drilled for the encinas la pegs and selected and opened the patella button. I then removed the trial components, brought the knee back into extension, and treated the posterior, medial, and lateral capsule with the Aquamantys bipolar system. I then irrigated the joint, while the cement was being mixed on the back table. When the cement had reached proper consistency, I cemented the tibial component in place (utilizing navigation), then r emoved excess cement. I then placed the tibial polyethylene; then impacted the press-fit fe mur component. Due to the patient s good bone quality, I elected to press-fit the femur. I then cemented the patellar button, and removed excess cement. Navigation confirmed both fl exion/extension alignment and these values were recorded. 10 cc Floseal was placed in the k nee and a combination of Toradol/Ketamine/marcaine was introduced about the knee capsule. The tourniquet was then deflated, and hemostasis was obtained. I treated the anterior caps ule with the Aquamantys bipolar system. I then thoroughly irrigated the joint, with a total of three liters sterile saline with pulse outdoor pursuits instructor. There was no patellar maltracking. Floseal was placed and the Marcaine/Morphine/Toradol mixture was injected around the entire knee. When the cement had fully cured, the arthrotomy was then repaired with #1 Ethibond. T he subcutaneous tissues were then irrigated with sterile saline, and deep fat layer was clos ed with #0 vicryl, followed by subcutaneous wound closure with #2-0 vicryl. The skin was cl osed with grant. The percutaneous stab wounds were also closed with grant The skin was then thoroughly cleaned, and a sterile dressing was applied. Drapes were then removed, and a clean Omid wrap was then applied from above the knee down to the ankle. Gener al anesthesia was reversed, and the patient was extubated. The patient was placed back to [facility] bed, and taken to the recovery room in stable condition. All counts were correct. There were no complications. DREW HURST MD 09/07/2013 9:58 AM docupily smith in this encounter Plan of Treatment +--------+ [...]
--- OUTSIDE RECORDS SUMMARY | ~2020-07-26 | XMS | Encounter Summary ---
Demographics + + + | Address | [address] | | | [place] [address] | + + + | Home Phone | | + + + | Preferred Language | Unknown | + + + | Marital Status | Unknown | + + + | Latter Day Affiliation | PRO | + + + [...] Team Providers + +------+ + | Care Information Technology Data Analyst Name | Role | Phone | + +------+ + | Gilberto Estrada MD | PCP | | + +------+ + Reason for Visit AUTH/CERT +--------+--------+ + + + + | [...] | +--------+ + + + + | 06/12/ | Anesthesia | 6A Intra Op 3181 | Sen Owens, | | | 2018 | Event | [address] | [address] | | | | | Jr [facility] | [address] | | | | | Hospital Admitting | [place], [place] | | | | | Desk Located on the | [address] | | | | | 9th floor | [phone] | | | | | [facility] [place] | | | | | | [address] | Princess Ward MD | | | | | | [address] | | | | | | [place], | | | | | | [place] [address] | | | | | | [phone] | | | | | | | | +--------+ + + + + Anesthesia Record + + + + + | Procedure Name | Responsible | Anesthesia Start | Anesthesia Stop Time | | | Anesthesiologist | Time | | + + + + + | RIGHT KNEE I&D, POLY | Sen Owens MD | 06/12/18 1301 | 06/12/18 1536 | | EXCHANGE MICRO x 7 | | | | | PATH x 2 (Right | | | | | Knee) | | | | + + + + + +----+---+ + + | Da | T | Event | Comment | | te | i | | | | | m | | | | | e | | | +----+---+ + + | 08 | 1 | Eq Check | Anesthesia machine checked Equipment verified | | /1 | 2 | | | | 7/ | 0 | | | | 20 | 5 | | | | 18 | | | | +----+---+ + + | | 1 | Pt. Check | Prior to anesthesia start, pt. Identified, examined, chart | | | 2 | | reviewed, PARQ held, anesthetic plan made or approved by | | | 1 | | attending anesthesiologist. NPO status confirmed as appropriate | | | 6 | | for procedure Preoperative evaluation: unchanged | +----+---+ + + | | 1 | Block Pause | | | | 2 | | | | | 4 | | | | | 2 | | | +----+---+ + + | | 1 | Start PNB | | | | 2 | SS | | | | 5 | | | | | 0 | | | +----+---+ + + | | 1 | PNB SS Stop | | | | 2 | | | | | 5 | | | | | 8 | | | +----+---+ + + | | 1 | An Start | | | | 3 | | | | | 0 | | | | | 1 | | | +----+---+ + + | | 1 | An Start | | | | 3 | Data | | | | 0 | | | | | 3 | | | +----+---+ + + | | 1 | Vitals | Monitors applied Vital signs checked Patient ready for anesthesia | | | 3 | Checked | | | | 0 | | | | | 6 | | | +----+---+ + + | | 1 | Art Line | | | | 3 | | | | | 1 | | | | | 2 | | | +----+---+ + + | | 1 | SGA | | | | 3 | | | | | 2 | | | | | 1 | | | +----+---+ + + | | 1 | Ready | | | | 3 | | | | | 2 | | | | | 2 | | | +----+---+ + + | | 1 | Abx held | Contraindicated, or not indicated for this procedure, or already | | | 3 | Medical or | receiving antibiotics | | | 2 | Surgical | | | | 7 | Reason | | +----+---+ + + | | 1 | Timeout | | | | 3 | | | | | 4 | | | | | 2 | | | +----+---+ + + | | 1 | An Tourn | | | | 3 | Inflated | | | | 4 | | | | | 4 | | | +----+---+ + + | | 1 | Incision | | | | 3 | | | | | 4 | | | | | 6 | | | +----+---+ + + | | 1 | Abx | Held until cultures were obtained | | | 4 | Administere | | | | 0 | d | | | | 1 | | | +----+---+ + + | | 1 | Quick Note | POC Glucose check, 68 | | | 4 | | | | | 1 | | | | | 0 | | | +----+---+ + + | | 1 | An Tourn | | | | 4 | Deflated | | | | 4 | | | | | 5 | | | +----+---+ + + | | 1 | Surgery end | | | | 5 | | | | | 1 | | | | | 9 | | | +----+---+ + + | | 1 | An Extubate | Neuromuscular function Intact. Pharynx suctioned. Patient obeys | | | 5 | | commands. Adequate pulmonary mechanics. | | | 1 | | | | | 9 | | | +----+---+ + + | | 1 | an stop | | | | 5 | data | | | | 2 | | | | | 9 | | | +----+---+ + + | | 1 | PACU Rpt | | | | 5 | Given | | | | 3 | | | | | 6 | | | +----+---+ + + | | 1 | Anesthesia | | | | 5 | End | | | | 3 | | | | | 6 | | | +----+---+ + + +------+ | Meds | +------+ + + + | Name | Total | + + + | lidocaine 2% | 60 mg | + + + | propofol (DIPRIVAN) 200 mg | 100 mg | + + + | fentaNYL | 150 mcg | + + + | ondansetron | 4 mg | + + + | ceFAZolin | 2,000 mg | + + + | bupivacaine 0.5% | 20 mL | + + + | PHENYLEPHrine | 350 mcg | + + + | dextrose 50% | 12.5 g | + + + | LR | 500 mL | + + + + + | Name | + + | O2 FR Avance (Total Liters) | + + | Air FR Avance (l/min) | + + | Insp Sevo | + + | Et Sevo | + + + + | No blood administrations on file. | + + +--------+ + + + | Type | Details | Placement | Removal | +--------+ + + + | Wound | 06/11/18; 2229; Yes; Left; | 06/11/182229 by | | | | Medial; leg; Ulceration | Chichi Mackey, | | | | | RN | | +--------+ + + + | Incisi | 06/12/18; 1414; Friess; Right; | 06/12/18 1414 by | | | on | knee | Lauren Vega RN | | +--------+ + + + | Periph | 06/11/18; 1813; Right; | 06/11/181812 by | 06/15/181838 by | | eral | Antecubital; 20 g; 06/15/18; | Birgit Gomez RN | Padmini Magaña RN | | IV | 1839; Occluded | | | +--------+ + + + | Periph | 06/11/18; 1815; Right; | 06/11/181815 by | 06/17/18 1058 by | | eral | Antecubital; 20 g; Positive; | Jesenia Miller, | Padmini Magaña RN | | IV | 06/17/18; 1058 | RN | | +--------+ + + + | Arteri | 06/12/18; 0112 (created via | 06/12/18 0112 by | 06/12/18 1617 by | | al | procedure documentation); | Robel Page, | Kelli Bain RN | | Line | Standard; Left; 20g; 06/12/18; | SHIPMASTER | | | | 1617; Per order | | | +--------+ + + + | Periph | 06/12/18; 1323; Right; Wrist; 20 | 06/12/18 1323 by | 06/14/181999 by | | eral | g; 06/14/18; 1999 | Robel Page, | Gabriel Zapata RN | | IV | | SHIPMASTER | | +--------+ + + + | Drain | 06/12/18; 1422; Barrett AGUILAR; | 06/12/18 1422 by | 06/16/18 0000 by | | | Hemovac; Right; knee; 06/16/18; | Lauren Vega RN | Padmini Magaña RN | | | No longer present | | | +--------+ + + + documented in this encounter Social History + +-------+ +--------+------+ | Tobacco Use | Types | Packs/Day | Years | Date | | | | | Used | | + +-------+ +--------+------+ | Never Smoker | | | | | + [...] encounter OR Notes Anesthesia Postprocedure Evaluation - Riky Barry CRNA - 06/12/2018 4:12 PM PDTForma tting of this note might be different from the original. Duane Mas [id number] Allergies Allergen Reactions Sulfa (Sulfonamide Antibiotics) Rash History reviewed. No pertinent past surgical history. Temp: 36.6 C (97.9 F) Heart Rate: 77 Resp: 22 BP: 141/71 SpO2: 99 % Evaluation Patient personally seen and evaluated for recovery from anesthesia care, ROS including Card s, Resp, Neuro, and GI w/o evidence of adverse effects, VS (BP, HR, RR, SpO2, and Temp) and hydration status are stable no PONV Pain controlled No Altered mental status Complications No adverse events nesthesia Procedu re Notes - Robel Page CRNA - 06/12/2018 1:52 PM PDTAssociated Order(s): ANE ART LINE Procedure ART LINE Procedure Information Inserted: Before Induction 5 minutes to perform. Type Catheter: Arrow kit Indications: Beat to beat blood pressure monitoring Location Performed: [place] Informed Consent: Included in anesthesia consent Protective Barrier: Cap, Mask and Sterile Gloves Skin Prep: Chloraprep Draped: Partially draped Anesthesia Method: Local infiltration w/lidocaine Insertion side: Left Access device: 20g Line secured by:Dressing Applied and StatLock Assessment Number of attempts: 1st Complications: None Assessment: Catheter connected to pressure line and flushed, catheter manually flushed, Debbie erated procedure well and Perfusion checked distal to catheter Attending physically present Attending Name: PRINCESS WARD Performed by AGUSTIN VELEZ Name: ROBEL PAGE Performed by Laureen GRAHAM. nesthesia Procedure N otes - Robel Page CRNA - 06/12/2018 1:48 PM PDTAssociated Order(s): ANE LMAProcedure Reason for Intubation: For surgical procedure, Location Performed: [place] , Patient was preoxyg enated Mask Ventilation Grade 1 - Ventilated by mask ETT SGA Atraumatic Placement: Yes LMA Type: Air-Q LMA Size: 4.5LMA Size: 4.5 LMA positive for Et co2 Breath Sounds Auscultated: Bilateral and equal Narrative Attending physically present Performed by Laureen GRAHAM. nesthesia Procedure N otashley - Sen Owens MD - 06/12/2018 12:59 PM PDTAssociated Order(s): ANE PNB SSSingle-S hot Type Type femoral block Technique used ultrasound guided Side right Block indication: Have recei jeremie and accepted request from attending surgeon to offer advanced acute pain management serv ices to the patient Pre-Op The patient was identified, the site marked, full PARQ Done Procedure Pt. Position Supine, Monitors used NIBP, SpO2 and EKG Supplimental O2 used Single Shot Pre p: ChloraPrep Ultrasound Spread Characteristics: full spread around nerve/plexus Image printed and placed in patient s chart Guidance: Needle tip visualized Needle Needle type: Short-bevel Gauge: 21 G Length: 4 in No, Aspiration was Negative for blood Nerve Stimulator Assessment test dose Ist attempt Result: Block not evaluated prior to induction Complications: None, Technical difficulty: Easy Intended analgesia: deferred Attending physically present Regional fellow performed, Attending present SEN OWENS Block performed by regional fellow, supervised by attending Stone. A procedural pause verifying correct patient, medical record number, date of , allergi es, and surgical site/orientation was performed immediately prior to beginning the procedure . Prior to pause, a formal PARQ discussion was held with patient who consents to procedure a nd understands risks/benefits of nerve block. After visual anatomical identification of landmarks, site was thoroughly cleaned with Chlor aprep. Skin anesthestized with 1% lidocaine. Ultrasound visualization of femoral nerve anato my was good. Local anesthetic was injected after negative aspiration in divided doses with repeat aspira tion after every 5 mL for total for 20 mL. See anesthetic record for medication dose documen tation. No paresthesias or pain with injection noted. Injection pressures normal. The procedure was well tolerated and without observed complication. See patient's medical record for images. nesthesia Preproced ure Evaluation - Princess Ward MD - 06/12/2018 12:01 PM PDTFormatting of this note might b e different from the original. 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 No pertinent past surgical history. Current Medication List Name Sig Last Dose ACETAMINOPHEN 300 MG-CODEINE 15 MG TABLET Take 1 tablet by mouth every six hours as needed for severe pain. 06/11/2018 ALLOPURINOL 300 MG TABLET Take 300 mg by mouth once daily. 06/11/2018 CARVEDILOL 12.5 MG TABLET Take 12.5 mg by mouth two times daily. Administer with food. 06/11 CHOLECALCIFEROL (VITAMIN D3) 1,000 UNIT TABLET Take 1,000 Units by mouth once daily. 018 COLCHICINE 0.6 MG TABLET Take 0.6 mg by mouth once daily as needed. Within last 7 days EPLERENONE 25 MG TABLET Take 12.5 mg by mouth once daily. 06/11/2018 FOLIC ACID 400 MCG TABLET Take 400 mcg by mouth once daily. 06/11/2018 GLIMEPIRIDE 0.5 MG ORAL DOSE Take by mouth once daily with breakfast. Within last 30 days ISOSORBIDE DINITRATE ER 40 MG CAPSULE,EXTENDED RELEASE Take 60 mg by mouth once daily. 06/11 MAGNESIUM OXIDE 400 MG TABLET Take 400 mg by mouth once daily. 06/11/2018 METFORMIN 500 MG TABLET Take 1,000 mg by mouth two times daily. 06/11/2018 MULTIVITAMIN TABLET (THERAPEUTIC) Take 1 tablet by mouth once daily. 06/11/2018 SIMVASTATIN 40 MG TABLET Take 40 mg by mouth once daily in the evening. 06/11/2018 TORSEMIDE 20 MG TABLET Take 20 mg by mouth two times daily. 06/11/2018 WARFARIN 2.5 MG TABLET Take 2.5 mg by mouth once daily. 06/11/2018 No results found for: RATE, ATRIALRATE, ID, QRS, QT, QTC, PAXIS, RAXIS, TAXIS, EKGDX Preoperative Adult Anesthesia Plan Last edited 06/12/18 1201 by Princess Ward MD ROS: HPI: Severe cervical stenosis Pulmonary: Dx of sleep apnea Declines BiPap/CPAP Cardiovascular: Cath October 2015: 70% proximal LAD lesion, 90% ostial first diagonal, 85% ostial second diagonal, 40% ramus intermedius, and the proximal RCA was occluded (previous stenting). The circumflex looked good. There were extensive left to right coronary collaterals. The saphenous vein graft to the LAD was patent and the graft to the RCA was occluded. The ejection fraction was 45%, with inferobasal akinesia CHF hypertension CAD Sx (CABG x2 2000) CABG cardiac stents pacemaker (placed 2015 for symptomatic sinus node dysfunction)/ICD Type: Implantable Pacemaker Denies chest pain with walking, limited by knee pain. Sleeps sitting up in chair Functional Capacity: Low CHF EF by Echo: 40-45 hypertension CAD Sx (CABGx2 2000) CABG cardiac stents pacemaker (placed 2015 for symptomatic sinus node dysfunction)/ICD CHERYL: Not Likely (surgery inferior to umbilicus, or monopolar electrosurgery will not be used, and no other sources of CHERYL anticipated) GI/Hepatic: no GERD Renal: renal failure Type: CKD Endo: Diabetes: oral hypoglycemics Endocrine Other Parathyroid: hyperparathyroidism Neuro/Psych: Spine Conditions Heme/Onc: On wafarin for h/o DVT. Last dose yesterday morning? Physical Exam General: Appearance: Healthy and No distress HEENT: Normocephalic/Atraumatic Airway: Dentition: dentition is normal Mallampati: 1 Mouth Opening: > 3 cm TM Distance:> 6 cm Huynh: No C-Spine ROM: Fixed C-Spine comments: extremely limited neck mobility 2/2 arthritis Neck Anatomy: Normal Jaw Protrusion: Normal (lower incisors go above upper incisors) Pulmonary: Respiratory: pulmonary exam normal Breath Sounds: breath sounds normal Cardiovascular: Rhythm: Regular Rate: Normal 1201 Anesthesia Plan Comments ASA ASA 3 NPO Status NPO Status: NPO by protocol Monitors/Lines to be used Standard and Art line Anesthetic Consideration Preop antibiotics and PONV prophylaxis Induction intravenous induction Anesthetic Technique Given patient's comorbidities, would prefer spinal with femoral nerve block over GA. 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 Will chec k INR and attempt spinal placement if INR levels wnl. GA as backup plan with awake art line. General, Nerve Block and Spinal; Block Type: AnestheticBlock Additional Information: femoral block and single shot Obstetric Anesthesia Post-Op Pain Plan IV analgesics and Peripheral Nerve Block; Blood Products T and S; Informed Consent PARQ discussed with: patient and spouse, Procedures, Alternatives, Risks, and Questions di scussed and Risk/benefit of anesthesia plan and blood product discussed Dental Risk discussed with patient ; ; Date Consent Series Given: 06/12/2018 12:02 PM Code status in OR Patients Code Status in OR: FULL 06/12 12:19 PM documented in this enc ounter Miscellaneous Notes PMC/ANE PreOp Note - Princess Ward MD - 06/12/2018 11:30 AM PDTROS: HPI: Severe cervical stenosis Pulmonary: Dx of sleep apnea Declines BiPap/CPAP Cardiovascular: Cath October 2015: 70% proximal LAD lesion, 90% ostial first diagonal, 85% ostial second di agonal, 40% ramus intermedius, and the proximal RCA was occluded (previous stenting). The ci rcumflex looked good. There were extensive left to right coronary collaterals. The saphenous vein graft to the LAD was patent and the graft to the RCA was occluded. The ejection fracti on was 45%, with inferobasal akinesia CHF hypertension CAD Sx (CABG x2 2000) CABG cardia c stents pacemaker (placed 2015 for symptomatic sinus node dysfunction)/ICD Type: Implant able Pacemaker Denies chest pain with walking, limited by knee pain. Sleeps sitting up in chair Functional Capacity: Low CHF EF by Echo: 40-45 hypertension CAD Sx (CABGx2 2000) CABG cardiac sten ts pacemaker (placed 2015 for symptomatic sinus node dysfunction)/ICD CHERYL: Not Likely (alejandro rgery inferior to umbilicus, or monopolar electrosurgery will not be used, and no other sour anne marie of CHERYL anticipated) GI/Hepatic: no GERD Renal: renal failure Type: CKD Endo: Diabetes: oral hypoglycemics Endocrine Other Parathyroid: hyperparathyroidism Neuro/Psych: Spine Conditions Heme/Onc: On wafarin for h/o DVT. Last dose yesterday morning? Physical Exam General: Appearance: Healthy and No distress HEENT: Normocephalic/Atraumatic Airway: Dentition: dentition is normal Mallampati: 1 Mouth Opening: > 3 cm TM Distance:> 6 cm Huynh: No C-Spine ROM: Fixed C-Spine comments: extremely limited neck mobility 2/2 arthritis Neck Anatomy: Normal Jaw Protrusion: Normal (lower incisors go above upper incisors) Pulmonary: Respiratory: pulmonary exam normal Breath Sounds: breath sounds normal Cardiovascular: Rhythm: Regular Rate: Normal documented in this enc ounter Plan of Treatment Not on filedocumented as of this encounter Procedures + +--------+ + + + | Procedure Name | Priori | Date/Time | Associated Diagnosis | Comments | | | ty | | | | + +--------+ + + + | ANE ART LINE | Routin | 06/12/2018 | | Results for this | | | e | 1:52 PM | | procedure are in the | | | | PDT | | results section. | + +--------+ + + + | ANE LMA | Routin | 06/12/2018 | | Results for this | | | e | 1:48 PM | | procedure are in the | | | | PDT | | results section. | + +--------+ + + + | ANE PNB SS | Routin | 06/12/2018 | | | | | e | 12:59 PM | | | | | | PDT | | | + +--------+ + + + +---+--------+ | | | | | Proced | | | ure | | | Note - | | | | | | Aayush | | | l, | | | Jovan | | | t, MD | | | - | | | | | | 2018 | | | 12:59 | | | PM PDT | | | | | | Single | | | -Shot | | | TypeTy | | | pe | | | femora | | | l | | | block | | | Techni | | | que | | | used | | | ultras | | | ound | | | guided | | | Side | | | right | | | Block | | | indica | | | tion: | | | Have | | | receiv | | | ed and | | | | | | accept | | | ed | | | reques | | | t from | | | | | | attend | | | ing | | | surgeo | | | n to | | | offer | | | advanc | | | ed | | | acute | | | pain | | | manage | | | ment | | | servic | | | es to | | | the | | | patien | | | t | | | Pre-Op | | | The | | | patien | | | t was | | | identi | | | fied, | | | the | | | site | | | marked | | | , full | | | PARQ | | | DonePr | | | ocedur | | | ePt. | | | Positi | | | on | | | Supine | | | , | | | Monito | | | rs | | | used | | | NIBP, | | | SpO2 | | | and | | | EKG | | | Suppli | | | mental | | | O2 | | | used | | | Single | | | Shot | | | Prep: | | | Chlora | | | Prep | | | | | | Ultras | | | oundSp | | | read | | | Charac | | | terist | | | ics: | | | full | | | spread | | | | | | around | | | | | | nerve/ | | | plexus | | | Image | | | | | | printe | | | d and | | | placed | | | in | | | patien | | | ts | | | chart | | | Guidan | | | ce: | | | Needle | | | tip | | | visual | | | izedNe | | | edleNe | | | edle | | | type: | | | Short- | | | bevel | | | Gauge: | | | 21 G | | | | | | Length | | | : 4 | | | in No, | | | | | | Aspira | | | tion | | | was | | | Negati | | | ve for | | | | | | bloodN | | | erve | | | Stimul | | | atorAs | | | sessme | | | nttest | | | dose | | | Ist | | | attemp | | | t | | | Result | | | : | | | Block | | | not | | | evalua | | | dilcia | | | prior | | | to | | | induct | | | ion | | | Compli | | | cation | | | s: | | | None, | | | | | | Techni | | | marycruz | | | diffic | | | ulty: | | | Easy | | | | | | Intend | | | ed | | | analge | | | enmanuel: | | | deferr | | | ed | | | Attend | | | ing | | | physic | | | ally | | | presen | | | t | | | Region | | | al | | | fellow | | | | | | perfor | | | med, | | | Attend | | | ing | | | presen | | | t | | | AAYUSH | | | L, | | | JOVAN | | | T | | | WILLIA | | | M | | | Block | | | perfor | | | med by | | | | | | region | | | al | | | fellow | | | , | | | superv | | | ised | | | by | | | attend | | | ing | | | Gonzal | | | ez.A | | | proced | | | ural | | | pause | | | verify | | | ing | | | correc | | | t | | | patien | | | t, | | | medica | | | l | | | record | | | | | | number | | | , date | | | of | | | , | | | | | | allerg | | | ies, | | | and | | | surgic | | | al | | | site/o | | | rienta | | | tion | | | was | | | perfor | | | med | | | immedi | | | ately | | | prior | | | to | | | beginn | | | ing | | | the | | | proced | | | ure. | | | Prior | | | to | | | pause, | | | a | | | formal | | | PARQ | | | discus | | | zoe | | | was | | | held | | | with | | | patien | | | t who | | | consen | | | ts to | | | proced | | | ure | | | and | | | unders | | | tands | | | risks/ | | | benefi | | | ts of | | | nerve | | | block. | | | Afte | | | r | | | visual | | | | | | anatom | | | ical | | | identi | | | ficati | | | on of | | | landma | | | rks, | | | site | | | was | | | thorou | | | ghly | | | cleane | | | d with | | | | | | Chlora | | | prep. | | | Skin | | | anesth | | | estize | | | d with | | | 1% | | | lidoca | | | ine. | | | Ultras | | | ound | | | visual | | | izatio | | | n of | | | femora | | | l | | | nerve | | | anatom | | | y was | | | good. | | | Local | | | anesth | | | etic | | | was | | | inject | | | ed | | | after | | | negati | | | ve | | | aspira | | | tion | | | in | | | divide | | | d | | | doses | | | with | | | repeat | | | | | | aspira | | | tion | | | after | | | every | | | 5 mL | | | for | | | total | | | for 20 | | | mL. | | | See | | | anesth | | | etic | | | record | | | for | | | medica | | | tion | | | dose | | | docume | | | ntatio | | | n. No | | | | | | parest | | | hesias | | | or | | | pain | | | with | | | inject | | | ion | | | noted. | | | | | | Inject | | | ion | | | pressu | | | res | | | normal | | | . The | | | proced | | | ure | | | was | | | well | | | tolera | | | dilcia | | | and | | | withou | | | t | | | observ | | | ed | | | compli | | | cation | | | . See | | | | | | patien | | | t's | | | medica | | | l | | | record | | | for | | | images | | | . | +---+--------+ documented in this encounter Results ANE ART LINE (06/12/2018 1:52 PM PDT) + + + | Narrative | Performed At | + + + | Robel Paeg CRNA 06/12/2018 1:57 PM Procedure ART LINE | | | Procedure Information Inserted: Before Induction 5 minutes to | | | perform. Type Catheter: Arrow kit Indications: Beat to beat blood | | | pressure monitoring Location Performed: [place] Informed Consent: | | | Included in anesthesia consent Protective Barrier: Cap, Mask and | | | Sterile Gloves Skin Prep: Chloraprep Draped: Partially draped | | | Anesthesia Method: Local infiltration w/lidocaine Insertion side: | | | Left Access device: 20g Line secured by:Dressing Applied and | | | StatLock Assessment Number of attempts: 1st Complications: | | | None Assessment: Catheter connected to pressure line and flushed, | | | catheter manually flushed, Tolerated procedure well and Perfusion | | | checked distal to catheter Attending physically present Attending | | | Name: PRINCESS WARD Performed by AGUSTIN VELEZ Name: ROBEL PAGE | | Anton Performed by Laureen GRAHAM. | | + + + ANE LMA (06/12/2018 1:48 PM PDT) + + + | Narrative | Performed At | + + + | Robel Page CRNA 06/12/2018 1:52 PM Procedure Reason | | | for Intubation: For surgical procedure, Location Performed: [place] , | | | Patient was preoxygenated Mask Ventilation Grade 1 - Ventilated by | | | mask ETT SGA Atraumatic Placement: Yes LMA Type: Air-Q LMA | | | Size: 4.5LMA Size: 4.5 LMA positive for Etco2 Breath Sounds | | | Auscultated: Bilateral and equal Narrative Attending physically | | | present Performed by Laureen GRAHAM. | | + + + documented in this encounter Visit Diagnoses Not on filedocumented in this encounter Administered Medications + +--------+ +-------+------+------+ | Medication Order | MAR | Action | Dose | Rate | Site | | | Action | Date | | | | + +--------+ +-------+------+------+ | bupivacaine (PF) | Given | 06/12/20 | 20 mL | | | | (MARCAINE,SENSORCAINE-MPF) | | 18 12:55 | | | | | injection INTRAPROCEDURE PRN, | | PM PDT | | | | | Starting Fri06/12/18 at 1255, | | | | | | | Until Fri06/12/18 at 1529 | | | | | | + +--------+ +-------+------+------+ +---+---+ | | | +---+---+ + +-------+ + +---+---+ | ceFAZolin (ANCEF) injection | Given | 06/12/20 | 2,000 mg | | | | INTRAPROCEDURE PRN, Starting Fri | | 18 2:01 | | | | | 06/12/18 at 1401, Until Fri | | PM PDT | | | | | 06/12/18 at 1529 | | | | | | + +-------+ + +---+---+ +---+---+ | | | +---+---+ + +-------+ +--------+---+---+ | dextrose in water injection | Given | 06/12/20 | 12.5 g | | | | INTRAPROCEDURE PRN, Starting Fri | | 18 2:11 | | | | | 06/12/18 at 1411, Until Fri | | PM PDT | | | | | 06/12/18 at 1529 | | | | | | + +-------+ +--------+---+---+ +---+---+ | | | +---+---+ + +-------+ +--------+---+---+ | fentaNYL (SUBLIMAZE) injection | Given | 06/12/20 | 50 mcg | | | | intravenous, INTRAPROCEDURE PRN, | | 18 1:59 | | | | | Starting Fri06/12/18 at 1245, | | PM PDT | | | | | Until Fri06/12/18 at 1529 | | | | | | + +-------+ +--------+---+---+ +-------+ +--------+---+---+ | Given | 06/12/20 | 75 mcg | | | | | 18 1:21 | | | | | | PM PDT | | | | +-------+ +--------+---+---+ | Given | 06/12/20 | 25 mcg | | | | | 18 12:45 | | | | | | PM PDT | | | | +-------+ +--------+---+---+ +---+---+ | | | +---+---+ + + + +---+---+---+ | lactated Ringers IV | given by | 06/12/20 | | | | | INTRAPROCEDURE CONTINUOUS PRN, | | 18 2:30 | | | | | Starting Fri06/12/18 at 1205, | anesthes | PM PDT | | | | | Until Fri06/12/18 at 1529 | iology | | | | | + + + +---+---+---+ +---------+ +---+---+---+ | New Bag | 06/12/20 | | | | | | 18 12:05 | | | | | | PM PDT | | | | +---------+ +---+---+---+ +---+---+ | | | +---+---+ + +-------+ +-------+---+---+ | lidocaine PF (XYLOCAINE MPF) 20 | Given | 06/12/20 | 60 mg | | | | mg/mL (2 %) injection | | 18 1:18 | | | | | INTRAPROCEDURE PRN, Starting Fri | | PM PDT | | | | | 06/12/18 at 1318, Until Fri | | | | | | | 06/12/18 at 1529 | | | | | | + +-------+ +-------+---+---+ +---+---+ | | | +---+---+ + +-------+ +------+---+---+ | ondansetron (ZOFRAN) injection | Given | 06/12/20 | 4 mg | | | | intravenous, INTRAPROCEDURE PRN, | | 18 2:30 | | | | | Starting Fri06/12/18 at 1430, | | PM PDT | | | | | Until Fri06/12/18 at 1529 | | | | | | + +-------+ +------+---+---+ +---+---+ | | | +---+---+ + +-------+ +--------+---+---+ | PHENYLEPHrine 100 mcg/mL IV | Given | 06/12/20 | 50 mcg | | | | syringe INTRAPROCEDURE PRN, | | 18 2:48 | | | | | Starting Fri06/12/18 at 1318, | | PM PDT | | | | | Until Fri06/12/18 at 1529 | | | | | | + +-------+ +--------+---+---+ +-------+ +---------+---+---+ | Given | 06/12/20 | 100 mcg | | | | | 18 1:28 | | | | | | PM PDT | | | | +-------+ +---------+---+---+ | Given | 06/12/20 | 100 mcg | | | | | 18 1:21 | | | | | | PM PDT | | | | +-------+ +---------+---+---+ +---+---+ | | | +---+---+ + +---------+ +--------+---+---+ | propofol (DIPRIVAN) 200 mg | New Bag | 06/12/20 | 100 mg | | | | intravenous, INTRAPROCEDURE | | 18 1:18 | | | | | CONTINUOUS PRN, Starting Fri | | PM PDT | | | | | 06/12/18 at 1318, Until Fri | | | | | | | 06/12/18 at 1529 | | | | | | + +---------+ +--------+---+---+ +---+---+ | | | +---+---+ documented in this encounter
--- OUTSIDE RECORDS SUMMARY | ~2020-07-26 | XMS | Encounter Summary ---
Demographics + + + | Address | [address] | | | [place] [address] | + + + | Home Phone | | + + + | Preferred Language | Unknown | + + + | Marital Status | | + + + | Hoahaoism Affiliation | 1077 | + + + | Race | White | + + + | Ethnic Group | Not or | + + + Author + + + | Author | [facility] | | | and [place] | + + + | Organization | [facility] | | | [...] Team Providers + +------+ + | Care Financial Quantitative Analyst Name | Role | Phone | [...] | | | | | | | [facility] | | | | | | | ESOPHAGOGAST | | | | | | | RODUODENOSCO | | | | | | | PY TRANSORAL | | | | | | | DIAGNOSTIC | | | | | | | UT EGD | | | | | | | TRANSORAL | | | | | | | BIOPSY | | | | | | | SINGLE/MULTI | | | | | | | PLE UT EGD | | | | | | | BALLOON | | | | | | | DILATION | | | | | | | ESOPHAGUS | | | | | | | <30 MM DIAM | | | | | | | UT | | | | | | | ANESTHESIA | | | | | | | UPPER GI | | | | | | | ENDOSCOPIC | | | | | | | PX NOS EGD | | | | | | | DIL | | | +--------+--------+ + + + + Encounter Details +--------+ + + + + | Date | Type | Department | Care Team | Description | +--------+ + + + + | 02/08/ | [facility] | [facility] | Willow Colin MD | | | 2019 | Encounter | MED CTR [facility] | [address] | | | | | [address] | [address], | | | | | [place] [address] | [place] [address] | | | | | [phone] | [phone] | | | | | | | [...] + + + | Blood Pressure | 146/68 | 02/08/2019 3:11 PM | | | | | PDT | | + + + + + | Pulse | 90 | 02/08/2019 3:11 PM | | | | | PDT | | + + + + + | Temperature | 37 C (98.6 F) | 02/08/2019 3:11 PM | | | | | PDT | | + + + + + | Respiratory Rate | 18 | 02/08/2019 3:11 PM | | | | | PDT | | + + + + + | Oxygen Saturation | 93% | 02/08/2019 3:11 PM | | | | | PDT | | + + + + + | Inhaled Oxygen | - | - | | | Concentration | | | | + + + + + | Weight | 88.8 kg (195 lb 12.3 | 02/08/2019 3:11 PM | | | | oz) | PDT | | + + + + + | Height | 170.2 cm (5' 7") | 02/08/2019 3:11 PM | | | | | PDT | | + + + + + | Body Mass Index | 30.66 | 02/08/2019 3:11 PM | | | | | PDT | | + + + + + documented in this encounter Medications at Time of Discharge + + + +---------+ + + | Medication | Sig | Dispensed | Refills | Start | End Date | | | | | | Date | | + + + +---------+ + + | | Take 1 tablet by | | 0 | 11/26/19 | | | acetaminophen-codein | mouth Twice daily | | | 19 | | | e (TYLENOL #3) | as needed for Pain . | | | | | | 300-30 [...] every 4 hours | | | | 0 | | e (TYLENOL #2) | as needed for Pain. | | | | | | 300-15 MG per tablet | | | | | | + + + +---------+ + + | | Take 1 tablet by | | 0 | | | | acetaminophen-codein | mouth every 4 hours | | | | 0 | | e (TYLENOL #3) | as needed for Pain. | | | | | | 300-30 mg per tablet | | | | | | + + + +---------+ + + | | acetaminophen 300 | | 0 | 06/16/20 | | | acetaminophen-codein | mg-codeine 30 mg | | | 18 | 0 | | e (TYLENOL #3) | tablet [...] mg | | | | 18 | 0 | | tablet | | | | | | + + + +---------+ + + | allopurinol | Take 300 mg by mouth | | 0 | | | | (ZYLOPRIM) 300 mg | Daily. | | | | 0 | | tablet | | | | | | + + + +---------+ + + | amoxicillin | | | 0 | 09/28/20 | | | (AMOXIL) 500 MG | | | | 18 | 0 | | capsule | | | | | | + + + +---------+ + + | carvedilol (COREG) | TAKE ONE TABLET BY | | 0 | 02/03/20 | | | 12.5 mg tablet | MOUTH TWICE DAILY | | | 18 | 0 | + + + +---------+ + + | carvedilol (COREG) | Take 6.25 mg by | | 0 | | | | 6.25 mg tablet | mouth 2 times daily | | | | 0 | | | (with breakfast & | | | | | | | dinner). | | | | | + + + +---------+ + + | cephalexin | | | 0 | 01/12/20 | | | (KEFLEX) 500 mg | | | | 19 | 0 | | capsule | | | | | | + + + +---------+ + + | cephalexin | Take 1 capsule by | | 0 | 01/12/20 | | | (KEFLEX) 500 mg | mouth every eight | | | 19 | 0 | | capsule | hours. Indications: | | | | | | | bone/joint infection | | | | | + + + +---------+ + + | cholecalciferol | Take 1,000 Units by | | 0 | | | | (VITAMIN D-3) 1000 | mouth Daily. | | | | 0 | | units TABS | | | | | | + + + +---------+ + + | ciprofloxacin | | | 0 | 07/20/20 | | | (CIPRO) 250 mg | | | | 18 | 0 | | tablet | | | | | | + + + +---------+ + + | docusate-senna | Take 1 tablet by | | 0 | 06/16/20 | | | (SENOKOT-S) 50-8.6 | mouth two times | | | 18 | 0 | | mg per tablet | daily. | | | | | + + + +---------+ + + | eplerenone | Take 12.5 mg by | | 0 | 05/21/20 | | | (INSPRA) 25 mg | mouth once daily. | | | 17 | 0 | | tablet | | | | | | + + + +---------+ + + | fish oil 1,000 mg | Take 1,200 mg by | | 0 | | | | capsule | mouth 2 times daily. | | | | 0 | + + + +---------+ + + | folic acid | Take 400 mcg by | | 0 | | | | (FOLVITE) 400 MCG | mouth Daily. | | | | 0 | | tablet | | | | | | + + + +---------+ + + | furosemide (LASIX) | Take 40 mg by mouth | | 0 | | | | 40 mg tablet | 2 times daily. | | | | 0 | + + + +---------+ + + | glimepiride | Take 4 mg by mouth | | 0 | | | | (AMARYL) 4 mg tablet | every morning | | | | 0 | | | (before breakfast). | | | | | + + + +---------+ + + | glipiZIDE | | | 0 | 01/17/20 | | | (GLUCOTROL) 10 MG | | | | 19 | 0 | | tablet | | | | | | + + + +---------+ + + | glipiZIDE | | | 0 | 08/05/20 | | | (GLUCOTROL) 5 mg | | | | 18 | 0 | | tablet | | | | | | + + + +---------+ + + | isosorbide | Take 60 mg by mouth | | 0 | | | | mononitrate (IMDUR) | Daily. | | | | 0 | | 60 mg ER tablet | | | | | | + + + +---------+ + + | isosorbide | | | 0 | 07/25/20 | | | mononitrate 60 mg ER | | | | 18 | 0 | | tablet | | | | | | + + + +---------+ + + | isosorbide | Take 1 tablet by | | 0 | 02/04/20 | | | mononitrate 60 mg ER | mouth daily. | | | 18 | 0 | | tablet | | | | | | + + + +---------+ + + | losartan (COZAAR) | | | 0 | 09/08/20 | | | 50 mg tablet | | | | 18 | 0 | + + + +---------+ + + | losartan (COZAAR) | Take 50 mg by mouth | | 0 | | | | 50 mg tablet | Daily. | | | | 0 | + + + +---------+ + + | magnesium oxide | Take 400 mg by mouth | | 0 | | | | (MAG-OX) 400 mg | Daily. | | | | 0 | | tablet | | | | | | + + + +---------+ + + | MEDROL 2 MG tablet | | | 0 | 01/29/20 | | | | | | | 19 | 0 | + + + +---------+ + + | metFORMIN | Take 500 mg by mouth | | 0 | | | | (GLUCOPHAGE) 500 mg | Daily. | | | | 0 | | tablet | | | | | | + + + +---------+ + + | methotrexate 2.5 | | | 0 | 12/01/19 | | | mg tablet | | | | 19 | 0 | + + + +---------+ + + | methylPREDNISolone | Take 1 mg by mouth | | 0 | 01/29/20 | | | (MEDROL) 2 MG | daily. | | | 19 | 0 | | tablet | | | | | | + + + +---------+ + + | methylPREDNISolone | | | 0 | 01/12/20 | | | (MEDROL) 4 mg | | | | 19 | 0 | | tablet | | | | | | + + + +---------+ + + | metOLazone | Take 2.5 mg by mouth | | 0 | | | | (ZAROXOLYN) 2.5 mg | Daily. | | | | 0 | | tablet | | | | | | + + + +---------+ + + | metoprolol | | | 0 | 02/01/20 | | | succinate | | | | 19 | 0 | | (TOPROL-XL) 25 mg 24 | | | | | | | hr tablet | | | | | | + + + +---------+ + + | Multiple | Take 1 tablet by | | 0 | | | | Vitamins-Minerals | mouth Daily. | | | | 0 | | (ADULT MULTIVITAMIN | | | | | | | WITH MINERALS/IRON) | | | | | | | TABS | | | | | | + + + +---------+ + + | nystatin | | | 0 | 09/29/20 | | | (MYCOSTATIN) 100,000 | | | | 18 | 0 | | units/mL suspension | | | | | | + + + +---------+ + + | | Apply topically | | 0 | | | | nystatin-triamcinolo | Twice daily as | | | | 0 | | ne (MYCOLOG II) | needed. | | | | | | ointment | | | | | | + + + +---------+ + + | potassium chloride | Take 20 mEq by mouth | | 0 | | | | (K-DUR) 20 mEq ER | 2 times daily. | | | | 0 | | tablet | | | | | | + + + +---------+ + + | potassium chloride | | | 0 | 07/03/20 | | | (KLOR-CON) 10 mEq | | | | 18 | 0 | | CR tablet | | | | | | + + + +---------+ + + | potassium chloride | | | 0 | 01/13/20 | | | (KLOR-CON) 10 MEQ | | | | 19 | 0 | | ER tablet | | | | | | + + + +---------+ + + | potassium chloride | Take 10 mEq by mouth | | 0 | 11/19/19 | | | (KLOR-CON) 10 MEQ | daily. Pt is taking | | | 19 | 0 | | ER tablet | 3 tablets daily. | | | | | + + + +---------+ + + | potassium chloride | | | 0 | 07/23/20 | | | 20 mEq CR tablet | | | | 18 | 0 | + + + +---------+ + + | | | | 2 | 11/26/19 | | | promethazine-codeine | | | | 19 | 0 | | (PHENERGAN WITH | | | | | | | CODEINE) 6.25-10 | | | | | | | mg/5 mL liquid | | | | | | + + + +---------+ + + | simvastatin | Take 40 mg by mouth | | 0 | | | | (ZOCOR) 40 mg tablet | nightly. | | | | 0 | + + + +---------+ + + | torsemide | | | 0 | 12/19/19 | | | (DEMADEX) 20 mg | | | | 19 | 0 | | tablet | | | | | | + + + +---------+ + + | torsemide | Take 1 tablet by | | 0 | 11/19/19 | | | (DEMADEX) 20 mg | mouth daily. | | | 19 | 0 | | tablet | | | | | | + + + +---------+ + + | UNABLE TO FIND | | | 0 | 07/09/20 | | | | | | | 18 | 0 | + + + +---------+ + + | UNABLE TO FIND | | | 0 | 07/16/20 | | | | | | | 18 | 0 | + + + +---------+ + + | warfarin | | | 0 | 02/01/20 | | | (COUMADIN) 2.5 mg | | | | 19 | 0 | | tablet | | | | | | + + + +---------+ + + | warfarin | Take 2.5 mg by mouth | | 0 | | | | (COUMADIN) 2.5 mg | Daily. | | | | 0 | | tablet | | | | | | + + + +---------+ + + documented as of this encounter Miscellaneous Notes Sedation Documentation - Licha Adair RN - 02/08/2019 4:39 PM PDTProcedure cancelled pr ior to coming to Endo d/t increased INR. Will reschedule for Sunday, February 10, 2019Ele ctronically signed by Licha Adair RN at 02/08/2019 4:40 PM PDTdocumented in this encount er Plan of Treatment +--------+ + + + [...] + | PROTIME INR | STAT | 02/08/2019 | | Results for this | | | | 3:42 PM | | procedure are in the | | | | PDT | | results section. | + +--------+ + + + documented in this encounter Results Protime INR (02/08/2019 3:42 PM PDT) + + + + + + | Component | Value | Ref Range | Performed | Pathologist | | | | | At | Signature | + + + + + + | Prothrombin | 20.3 (H) | 11.3 - 13.9 | [facility] | | | Time | | seconds | [facility] | | | | | | [facility] | | | | | | [facility] - | | | | | | LABORATORY | | + + + + + + | INR | 1.8 (H)Comment: Usual | 0.9 - 1.1 | [facility] | | | | Oral Anticoagulation | | [facility] | | | | Range: 2.0 - | | MEDICAL | | | | 3.0High Level Oral | | CENTER - | | | | Anticoagulation Range: | | LABORATORY | | | | 2.5 - 3.5 | | | | + + + + + + + + | Specimen | + + | Blood | + + + + + + + | Performing | Address | City/State/Zipcode | Phone Number | | Organization | | | | + + + + + | [facility] | [address] | [place] | [phone] | | [facility] | | [address] | | | - LABORATORY | | | | + + + + + documented in this encounter Visit Diagnoses Not on filedocumented in this encounter Administered Medications + +--------+---------+------+------+------+ | Medication Order | MAR | Action | Dose | Rate | Site | | | Action | Date | | | | + +--------+---------+------+------+------+ + +---+ | albuterol 2.5 mg/3 mL nebulizer | | | solution 2.5 mg 2.5 mg, | | | Nebulization, ONCE PRN, Wheezing, | | | Starting 02/08/19 at 1516, | | | For 1 dose, RT will administer., | | | Pre-op | | + +---+ | | | + +---+ | albuterol-ipratropium 2.5-0.5 | | | mg/3 mL nebulizer solution 3 mL | | | 3 mL, Nebulization, ONCE PRN, | | | Wheezing, Starting 02/08/19 at | | | 1516, For 1 dose, Pre-op | | + +---+ | | | + +---+ | dextrose 50% injection 12.5-25 | | | g 12.5-25 g, Intravenous, EVERY | | | 15 MIN PRN, Low Blood Sugar, Give | | | 12.5g (25 mL) IV if blood | | | glucose 50-69 mg/dL. Give 25g | | | (50 mL) IV if blood glucose < 50, | | | Starting 02/08/19 at 1516, | | | Repeat in 15 min if blood glucose | | | remains < 70 mg/dL. Repeat | | | blood glucose in 30 min once | | | blood glucose > 70., Pre-op | | + +---+ | | | + +---+ + +---------+ +---+-------+---+ | lactated ringers (LR) infusion | New Bag | 02/09/20 | | 100 | | | at 10-100 mL/hr, Intravenous, | | 19 3:37 | | mL/hr | | | CONTINUOUS, Starting 02/08/19 | | PM PDT | | | | | at 1545, TKO., Pre-op | | | | | | + +---------+ +---+-------+---+ +---+---+ | | | +---+---+ documented in this encounter
--- OUTSIDE RECORDS SUMMARY | ~2020-07-26 | XMS | Encounter Summary ---
Demographics + + + | Address | [address] | | | [place] [address] | + + + | Home Phone | | + + + | Preferred Language | Unknown | + + + | Marital Status | Unknown | + + + | Spiritism Affiliation | PRO | + + + | Race | White | + + + | Ethnic Group | Not or | + + + Author + + + | Author | [facility] | + + + | Organization | [facility] | + + + | Address | Unknown | + + + | Phone | Unavailable | + + + Support + + +---------+ + | Name | Relationship | Address | Phone | + + +---------+ + | Beth Mas | ECON | Unknown | | + + +---------+ + Care Team Providers + +------+ + | Care Ager Tender Name | Role | Phone | + [...] on | [facility] at [facility] | [address] | Result Abnormal | | | | [address] [place] | [address] | | | | | Loop Physician's | [place], [place] | | | | | [place], [facility] floor | [address] | | | | | [place], [place] | [phone] | | | | | [address] | | | | | | [phone] | | | +--------+ + + + [...] Telephone Encounter - Jaye Winchester RN - 07/03/2018 11:33 AM Luca, Pharmacist from [facility], called to let us know that the patient has been admitted to [facility] as of yesterday. He is in room 129. Rosalind gave the nurse our phone number and asked that we be kep t in the loop. Jaye Winchester RN elephone Encounter - Abril Shields MD - 07/03/2018 11:18 AM PDTIncrease in cr from 1.7 to nearly 4 noted on [facility] labs drawn 07/02. [facility] was not notified directly re these results. Based on scanned lab results, it appears he may have been counseled to go the ED for evaluation. Attempted to marycruz l patient to recommend urgent evaluation - no answer so voicemail left with call back number . documented in this encounter Plan of Treatment Not on filedocumented as of this encounter Visit Diagnoses Not on filedocumented in this encounter"
--- OUTSIDE RECORDS SUMMARY | ~2020-07-26 | XMS | Encounter Summary ---
Demographics + + + | Address | [address] | | | [place] [address] | + + + | Home Phone | | + + + | Preferred Language | Unknown | + + + | Marital Status | | + + + | Jewish Affiliation | 1077 | + + + [...] Team Providers + +------+ + | Care Color Technician Name | Role | Phone | + +------+ + PCP | Unavailable | + +------+ + Encounter Details +--------+ + + + + | Date | Type | Department | Care Team | Description | +--------+ + + + + | 01/26/ | Hospital | [facility] | Conversion | Pain | | 2017 | Encounter | CONVERSION DEP [address] | Transaction, | | | | | [address] | Provider Unknown | | | | | [place] | | | | | | [address] | (Fax) | | | | | [phone] | | | +--------+ + + + [...] XR CHEST 2 VIEWS | Routin | 01/24/2017 | | Results for this | | | e | 1:44 AM | | procedure are in the | | | | PDT | | results section. | + +--------+ + + + documented in this encounter Results XR Chest 2 Vws (01/24/2017 1:44 AM PDT) + + | Specimen | + + | | + + + + + | Narrative | Performed At | + + + | This is a non-reportable procedure without a radiologist report and | | | is used for image storage only | | + + + + + | Procedure Note | + + | Jonathan Hidalgo Kim - 06/09/2019 11:43 PM PDT This is a non-reportable procedure | | without a radiologist report and isused for image storage only | + + documented in this encounter Visit Diagnoses + + | Diagnosis | + + | Pain Generalized pain | + + documented in this encounter"
--- OUTSIDE RECORDS SUMMARY | ~2020-07-26 | XMS | Encounter Summary ---
Demographics + + + | Address | [address] | | | [place] [address] | + + + | Home Phone | | + + + | Preferred Language | Unknown | + + + | Marital Status | Unknown | + + + | Adventist Affiliation | PRO | + + + [...] Team Providers + +------+ + | Care Shellac Polisher Name | Role | Phone | + [...]
--- OUTSIDE RECORDS SUMMARY | ~2020-07-26 | XMS | Encounter Summary ---
Demographics + + + | Address | [address] | | | [place] [address] | + + + | Home Phone | | + + + | Preferred Language | Unknown | + + + | Marital Status | | + + + | Episcopalian Affiliation | 1077 | + + + | Race | White | + + + | Ethnic Group | Not or | + + + Author + + + | Author | [facility] | | | and [place] | + + + | Organization | [facility] | | [...] Team Providers + +------+ + | Care Nursing Techn Name | Role | Phone | + +------+ + PCP | Unavailable | + +------+ + Encounter Details +--------+ + + + + | Date | Type | Department | Care Team | Description | +--------+ + + + + | 05/18/ | Hospital | [facility] | Olaf Nicole | | | 1998 - | Encounter | [facility] | MD [address] | | | | | CARDIAC TRANSPLANT | [address] | | | 05/19/ | | [address] | [place] [address] | | | 2000 | | [place] | [phone] | | | | | [address] | | | | | | [phone] | | | +--------+ + + + [...]
--- OUTSIDE RECORDS SUMMARY | ~2020-07-26 | XMS | Encounter Summary ---
Demographics + + + | Address | [address] | | | [place] [address] | + + + | Home Phone | | + + + | Preferred Language | Unknown | + + + | Marital Status | | + + + | Latter-Day Affiliation | 1077 | + + + | Race | White | + + + | Ethnic Group | Not or | + + + Author + + + | Author | [facility] | | | and [place] | + + + | Organization | [facility] | | [...] Team Providers + +------+ + | Care Associate Professor Of English Name | Role | Phone | + [...] | | | | | | | MI | | | | | | | ESOPHAGOGAST | | | | | | | RODUODENOSCO | | | | | | | PY TRANSORAL | | | | | | | DIAGNOSTIC | | | | | | | MI EGD | | | | | | | TRANSORAL | | | | | | | BIOPSY | | | | | | | SINGLE/MULTI | | | | | | | PLE MI EGD | | | | | | | BALLOON | | | | | | | DILATION | | | | | | | ESOPHAGUS | | | | | | | <30 MM DIAM | | | | | | | MI | | | | | | | [...] + + | 02/10/ | Surgery | [facility] | Willow Colin MD | EGD WITH DILITATION | | 2019 | | [facility] | [address] | | | | | [address] | [address], | | | | | [place] | [place] [address] | | | | | [address] | [phone] | | | | | [phone] | | | +--------+---------+ + + + [...] You can't be awakened Date Last Reviewed: 08/13/201619997918-3900 [employer]. [address] [place] [address]. All [facility] ts reserved. This information is not intended [...] you take. This includes prescription medicines, o kqc-cpq-pzxsmdx medicines, herbs, vitamins, and other supplements. Be [...] icine to relax you. The procedure takes [id number]. It does not cause trouble breath ing. [...] Black, tarry, or bloodystools Date Last Reviewed: 04/26/201619991720-5220 [employer]. [address] [place] [address], [place] [address]. All righ ts reserved. This information is [...] prescription medicines Herbs, vitamins, and other supplements Oxtk-nom-mstzvpw medicines such as aspirin or ibuprofen Street [...] heart or lung disease Date Last Reviewed: 05/27/201719996844-1856 [employer]. [address] [place] [address]. All righ ts reserved. This information is [...] signed by: Willow Colin MD, 02/10/2019 13:[address] [facility] Willow Colin MD at [...] Raciel Mccurdy | 0.9 - 1.2 | [facility] | | | | notified of result. [...] + + + + + | [facility] | [address] [place] [address] | [place] [address] | [phone] | | [facility] | | | | | LABORATORY | [...] | | | POC | | | [facility] | | | | | | MEDICAL [...] + + + + + | [facility] | [address] | [place] | [phone] | | [facility] | | [address] | | | - LABORATORY | | | | + + + + + Surgical Pathology Exam (02/10/2019 12:00 AM PDT) + + | Specimen | + + | | + + + + + | Narrative | Performed At | + + + | SPECIMEN(S): A GASTRIC BIOPSY SPECIMEN SOURCE: A. GASTRIC | [facility] | | BIOPSY CLINICAL HISTORY: R13.10 [...] submitted | | | entirely in (A1). greg:NEFTALI:serafin PERFORMING LABORATORY: The | | | technical and professional components were performed by [facility] | | | [facility], [address] [place] [address] | | | (Hot Baller: Don Morrell D.O.; CLIA#: [id number]). | | | Diagnostician: Gely Cerna MD [...] ONCE PRN, Wheezing, | | | Starting 02/10/19 at 1342, | | | For 1 [...] ONCE PRN, Wheezing, | | | Starting 02/10/19 at 1342, | | | For 1 [...] 19 1:23 | | | | | 02/10/19 at 1323 | | PM PDT | [...] MIN PRN, Pain, Starting | | | 02/10/19 at 1342, Maximum | | | total [...] PRN, Nausea, | | | Vomiting, Starting Fri02/10/19 at | | | 1342, For 1 [...]
--- OUTSIDE RECORDS SUMMARY | ~2020-07-26 | XMS | Encounter Summary ---
Demographics + + + | Address | [address] | | | [place] [address] | + + + | Home Phone | | + + + | Preferred Language | Unknown | + + + | Marital Status | | + + + | Quaker Affiliation | 1077 | + + + | Race | White | + + + | Ethnic Group | Not or | + + + Author + + + | Author | [facility] | | | and [place] | + + + | Organization | [facility] | | | [...] Team Providers + +------+ + | Care Terrazzo Roller Name | Role | Phone | + +------+ + | Erin Forrester MD | PCP | | + +------+ + Encounter Details +--------+ + + + + | Date | Type | Department | Care Team | Description | +--------+ + + + + | 02/12/ | Orders Only | [facility] | Mikal Calix MD | | | 2018 | | NEPRHOLOGY [facility] | [address] | | | | | [address] | [address] [place], [place] | | | | | [address] [place], [place] | [address] | | | | | [address] | | | | | | [phone] | | | +--------+ + + + [...]
--- OUTSIDE RECORDS SUMMARY | ~2020-07-26 | XMS | Encounter Summary ---
Demographics + + + | Address | [address] | | | [place] [address] | + + + | Home Phone | | + + + | Preferred Language | Unknown | + + + | Marital Status | Unknown | + + + | Taoism Affiliation | PRO | + + + | Race | White | + + + | Ethnic Group | Not or | + + + Author + + + | Author | [facility] | + + + | Organization | [facility] | + + + | Address | Unknown | + + + | Phone | Unavailable | + + + Support + + +---------+ + | Name | Relationship | Address | Phone | + + +---------+ + | Beth Mas | ECON | Unknown | | + + +---------+ + Care Team Providers + +------+ + | Care Doubling Machine Operator Name | Role | Phone | [...] | | | | | associated | [address] | | | | | | with | [address] | | | | | | internal | Mary Norris | | | | | | right knee | [place], [place] | | | | | | prosthesis, | [address] | | | | | | subsequent | Phone: | | | | | | encounter | [phone] | | | | | | Procedures | Fax: | | | | | | OCCUPATIONAL | [phone] | | | | | | THERAPY [...] | | | | | associated | [address] | | | | | | with | [address] | | | | | | internal | Mary Norris | | | | | | right knee | [place], [place] | | | | | | prosthesis, | [address] | | | | | | subsequent | Phone: | | | | | | encounter | [phone] | | | | | | Procedures | Fax: | | | | | | PHYSICAL | [phone] | | | | | | THERAPY [...] + + | 06/11/ | Hospital | [facility] [address] | Sandra Valle MD | | | 2018 - | Encounter | [address] | [address] | | | | | [place], | [address] | | | 06/17/ | | [place] [address] | [place], [place] | | | 2018 | | [phone] | [address] | | | | | | [phone] | | | | | | | | | | | | Edyta Demarco MD | | | | | | [address] | | | | | | [address] | | | | | | [place], [place] | | | | | | [address] | | | | | | [phone] | | | | | | | | | | | | Dean Ugarte MD | | | | | | [address] | | | | | | [address] [place], | | | | | | [place] [address] | | | | | | [phone] | | | | | | | | | | | | Stephan Mercado MD | | | | | | [address] | | | | | | [address] | | | | | | [place], [place] | | | | | | [address] | | | | | | [phone] | | | | | | | | | | | | Dayan Valverde, | | | | | | [address] | | | | | | [address] | | | | | | [place], [place] | | | | | | [address] | | | | | | [phone] | | | | | | | | | | | | Hugh Park MD | | | | | | [address] | | | | | | [place], | | | | | | [place] [address] | | | | | | [phone] | | | | | | | | | | | | Ann Mahmood MD | | | | | | [address] | | | | | | [address] | | | | | | [place], [place] | | | | | | [address] | | | | | | [phone] | | | | | | | [...] (s/p PCI x3, CABG x2) complicated by chronometer assembler erich systolic heart failure (EF 45%) due [...] excellent response. He will continue PT/OT at [facility] swing bed unit. Per orthopedic surgery, stitches [...] I-CAPS 280-10-2 mg Cap Generic drug: antiox. no.13-skzd7l-bptgerv9q-tdx-jwx Take 1 capsule by mouth once daily. [...] (Non-Steroidal Anti-Inflammatory Drug) Renal Failure Avoid per Metal Drawer recommendations Sulfa (Sulfonamide Antibiotics) Rash Vital Signs [...] information for after-discharge care Discharge Destination IP [facility] . Specialty: Acute Care Hospital Contact information [address] [facility] [address] [place] Location: [facility] swing bed unit Appointments: Dr. Sherman on 07/23/18 at 10:40am. The discharge note was forwarded to the PCP for review. Discharging Physician: Ann Mahmood MD Suggested CPT: 11903 Discharge Management > 30 minute I spent more than 35 minutes wsce-ha-dncj with the patient of which 70% was [...] | | 0 | | | | no.74-peqy4y-qhmspla1z-nih-rib | mouth once daily. | | | [...] negative pressure wound therapy dressing right knee [id number] Subjective: Doing ok overall. No CP/SOB. Tolerating [...] Plan to DC today to SNF in [place]. SNF can pull sutures at 2 weeks from operat kai date (June 27 is 2 weeks post op). Plan to return to Dr. Sherman' clinic 6 weeks an d also have ID clinic visit on that day. Appreciate [facility] and ID help in managing [...] knee at that time. Elias Soriano MD [facility] Department of Orthopaedics and Rehabilitation PGY-1 Pager [phone] Ann Vang MD - 4:42 PM PDT [...] (s/p PCI x3, CABG x2) complicated by chronometer assembler erich systolic heart failure (EF 45%) due [...] mg daily Dispo: Anticipate [facility] if renal function is s table Code status: Full code Diet: Regular diet Prophy: warfarin and heparin Ann Mahmood MD [employer] administrative assistant Clinical Hospitalist and Medicine Teaching Services [facility] Pager [phone] Suggested CPT: 02086 Subsequent Visit Detailed/High complexity 35 min I spent 37 minutes kaey-hj-bfmf with the patient of which 78% was [...] negative pressure wound therapy dressing right knee [id number] Subjective: Doing ok overall. No CP/SOB. Tolerating [...] to home as t ransporting back to [place] may present the patient and family undo hardship. 6. Dressings/Drains: Pulled yesterday? 7. Dispo/Discharge: Anticipate discharge to SNF in next 1-3 days if all criteria met. 8. Follow-up: Please call the clinic to make a follow up appointment in approximately 2 wee ks with ORTHO TRAUMA & FRACTURE, . AP and lateral of R knee at that time. Elias Soriano MD [facility] Department of Orthopaedics and Rehabilitation PGY-1 Pager [phone] atel, Tanvir - 06/16/2018 8:20 AM PDT [...] three and a half hours away from [place]. At this time, we are unsur e of his ability to follow up with an OPAT clinic or if there is a provider near [place], where the patient resides. 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 This patient was staffed [facility] Dr. Villalobos, who agrees with the above assessment and plan unless otherwise documented. Tanvir Ayala [facility] P SUBJECTIVE Interval Events: No acute events overnight S: patient reports he is feeling well this morning. States he was able to meet with a family caseworker and had decided to go to a [...] Dona Mercado MD Division of Hospital Medicine [facility] Pager [phone] I spent more than 35 minutes hfup-ys-qjxs with the patient of which greater than [...] negative pressure wound therapy dressing right knee [id number] Subjective: Doing ok overall, not too much pain in right knee. Looking forward to getting backup engineer to home, "My wants to get back [...] to home as t ransporting back to [place] may present the patient and family undo hardship. 6. Dressings/Drains: Continue drain 7. Dispo/Discharge: Anticipate discharge to SNF in next 1-3 days if all criteria met. 8. Follow-up: Please call the clinic to make a follow up appointment in approximately 2 wee ks with ORTHO TRAUMA & FRACTURE, . AP and lateral of R knee at that time. Sisi Pablo [facility] Orthopaedic Trauma Surgery Pager [phone] Stephan Aguirre MD - 06/14/2018 8:59 AM [...] Dona Mercado MD Division of Hospital Medicine [facility] Pager [phone] I spent more than 35 minutes pkuj-gl-psgq with the patient of which greater than [...] negative pressure wound therapy dressing right knee [id number] Subjective: Pain improving in R knee. Objective: [...] [facility]CT[facility], . AP and lateral of R knee at that time. SEBAS PLEITEZ MD Pager [phone] Stephan Aguirre M D - 06/13/2018 9:51 [...] date of discharge at this time Dona Meracdo MD Division of Hospital Medicine [facility] Pager [phone] I spent more than 35 minutes jdhz-yb-hena with the patient of which greater than 50% was sp ent counseling the patient or in coordination of care. Sebas Rordiguez M D - 06/13/2018 8:20 AM PDT Orthopaedic Surgery Progress Note Date: 06/13/2018 Hospital Day: 2 Orthopaedic Attending: Ghassan Sherman MD Diagnosis(es): Right total knee prosthetic joint infection. Orthopaedic Procedure(s) & Date(s): 06/13/2018 1. Right knee arthrotomy with drainage for infection and polyethylene exchange 2. Application TINO disposible negative pressure wound therapy dressing right knee [id number] Subjective: Painful in R knee today, but [...] a [facility] FRACT[facility], . AP and lateral of R knee at that time. SEBAS PLEITEZ MD Pager [phone] Stephan Aguirre M D - 06/12/2018 1:24 [...] Dona Mercado MD Division of Hospital Medicine [facility] Pager [phone] I spent more than 35 minutes fixk-hc-iasx with the patient of which greater than [...] total arthroplasty. Nika martinez was referred to [facility] for joint revision, and presented emergently to [facility] ED from [facility] ([place], [place]). Prior to presentation patient states that [...] IV (baseline cr 1.8-2.0), has had prior [place], no CVA. For his right lower extremity [...] mild distal inferior-apical ischemia, LVEF 53%. -10/2015 [facility] with 90% ostial first diagonal, 85% ostial second diagonal, occluded stent of proximal RCA with left to right coronary collaterals, Patent SVG to LAD Ischemic Cardiomyopathy c/b Chronic Systolic Heart Failure and Diastolic Heart Failure -10/2015 [facility] with EF 45% and inferiobasal akinesia Obstructive [...] po daily Carvedilol 12.5mg po daily -Y Celina-3 fatty acid 1,200mg po bid Acetaminophen-codeine po [...] the Social Hx as appropriate. 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 -would consult facilities engineer for enhanced nutrition in post-operative period Non-Insulin [...] as unclear why patient was placed on intermediate card tender anticoagulation after prior provoked DVT. Dena Ugarte MD Clinical Hospitalist Services [facility] Pager [phone] 06/11/2018 10:44 PM [facility] DEPARTMENT: Hosp ([facility]) - [id number] Place of Service: Date of Service: 07/25/2016 [facility] [id number] Modifiers:GC Resident Involved: No Service: PRIMARY HOSPITALIST Suggested CPT: 31938 Initial Visit Comp/High Complexity 70 min I [...] Antibiotics and Frequent lab draws Procedure location: Unit:[facility] Room: 14 Providers: Attending name: Attending physically present: No PICC Nurse name: Frances Fair RN BSN VAT Assisted by Christina March RN BSN VAT Pre-Procedure Consent: written consent obtained Consent given by: Patient Patient identity confirmed per protocol: Yes Team Pause: Immediatly prior to the procedure a pause per protocol was called. A pause veri fies correct patient, procedure, equipment, technical support manager and site/side marked as required. CLABSI Prevention [...] area Basilic vein. Cat heter lot number: [id number] with a length of 55 cm was [...] Service: 08/01/2015 Attending Surgeon: Ghassan Sherman MD Animal Scientist(s): mesfin thompson MD Preoperative Diagnosis: 1. right total knee prosthetic joint infection. Postoperative Diagnosis: same Procedures Performed: 1. Right knee arthrotomy with drainage for infection and polyethylene exchange 2. Application TINO disposible negative pressure wound therapy dressing right knee [id number] Anesthesia: General endotracheal anesthesia. Implants: excahgned alisha triathalon poly size 15, 13mm EBL: 50 Complications: None Specimens: 6 cultures, 1 path Indication For Procedure: Solo Alves was transferred to [facility] for sepsis after previosuly having been treated with a right total knee. He ws medically unstable and transferred to [facility]. An apsirate was positive. I [...] Patricia wrap. He was then awoken from [facility] and transported back to the postanesthesia care [...] as it stands. Ghassan Sherman MD, MPH Traveling Phlebotomist, [place] [address] [email or web address] mented in this encounter Consult [...] patient will need to follow up at [facility] on July 23 with orthopedics. During t hat time,we will cooridnate so that he may follow up with ID/OPAT in regards to his treatmen t. He will be discharged to [facility] to receive inpatient therapy and OPAT. 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 at [facility]. If patient is discharged fr om there, [...] the primary team. This patient was staffed [facility] Dr. Villalobos, who agrees with the above assessment and plan unless otherwise documented. Tanvir Ayala [facility] P SUBJECTIVE Interval Events: No acute [...] 07/24/18 to be continued via OPAT at [facility] Microbiology Data: Source Date Results Tissue cultures [...] tablet allopurinol 300 mg oral tablet antiox.mv no.62-ecpm6v-awpumto7v-ang-arn (I-CAPS) 280-10-2 mg oral capsule carvedilol 12.5 [...] Anticoagulation Clinic/Provider: New PCP Dr. Don Estrada ([phone]) Date INR Warfarin Dose 06/17/2018 1.78 2.5 [...] make recommendations. Please page clinical ph armacist (#[phone]) or call central inpatient pharmacy ([phone]) with questions. Rashard Jacob Pharm. D. Candidate Associated attestation - Mary Wade [facility] - 06/17/2018 11:14 AM PDT--I have reviewed the note written by pharmacy benefit manager Rashard Jacob and I agree with the content and his plan for warfarin on this patient. Thank you, Mary Wade [facility]. Pager [phone] Mary Wade [facility] - 06/16/2018 1:26 PM PDTFormatting of this [...] Anticoagulation Clinic/Provider: new PCP Dr. Don Estrada ([phone]) Date INR Warfarin Dose 06/16/2018 1.51 2.5mg [...] make recommendations. Please page clinical ph armacist (#[phone]) or call central inpatient pharmacy ([phone]) with questions. Thank you for consult, Mary Wade [facility]. Pager [phone] Trish Blankenship MD - 10:46 AM PDTAssociated Order(s): IP CONSULT TO INFECTIOUS DISEASESFormatting of [facility] s note might be different from the original. [facility] Infectious Diseases OPAT Referral for Discharge Planning Team B: OPAT RN Jaye Winchester, Office: [phone], Pager: [phone] ID Diagnosis: PJI Antibiotic agent and dosing: [...] has an ortho appointment 10:40 sa day) Wash Crew Person: For all patients requiring IV antibiotic therapy, please route your OPAT [place] n of Care Note (.CMOPAT) to [facility] "p OPAT/Infectious Diseases clinic" Pool at [...] and make recommendations. Please page clinical pharmacist (#[phone]) or call central inpatient pharmacy ([phone]) with questions. Subjective/Objective: Allergies: Nsaids (non-steroidal anti-inflammatory [...] by his new PCP Don Estrada MD ([phone]). The patient reports Dr Estrada wanted him [...] Carrington. 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 We will discuss [facility] OPAT vs outside providers. Formalized recs pending Recommendations were communicated directly to the primary team. This patient was staffed [facility] Dr. Villalobos, who agrees with the above assessment and plan unless otherwise documented. Thank you for the consult, we will follow along with you. Tanvir Ayala [facility] P SUBJECTIVE HPI: Júnior Mas is [...] arthritis. The patient was then transferred from [place] to [facility] for fu rther evaluation. While here, [...] 300 mg by mouth once daily. antiox. no.43-pqsp2r-lvxyrhe3v-fwt-wgq (I-CAPS) 280-10-2 mg oral capsule Take 1 [...] mouth every Friday. Take 1 tablet by [facility] all other days of the week. Current [...] (Non-Steroidal Anti-Inflammatory Drug) Renal Failure Avoid per Metal Drawer recommendations Sulfa (Sulfonamide Antibiotics) Rash Social History [...] care. Ishaan Villalobos MD [facility], Pharm[facility] - 06/14/2018 7:36 PM PDT Pharmacy [...] lab draw. - Please page clinical pharmacist (#[phone]) or call central inpatient pharmacy ([phone]) wit h questions. Subjective/Objective: Júnior Mas, a [...] CULTURE, TISSUE-PROSTHETIC JOINT INFECTION AER AND MARIELOS [[id number]] (Abnormal) [facility] Collec dilcia: 06/12/18 1354 Lab Status: Preliminary result Specimen: Tissue from Knee - right Updated: 06/14/18 1344 CULTURE RESULT [facility] Staphylococcus epidermidis (A) Ref Range: Narrative: Culture Report: Staphylococcus epidermidis Gram Stain: No squamous epithelial cells Rare polymorphonuclear cells No organisms seen Thank you, Ramon Mercado, PharmD, [facility] Clinical Pharmacist elphine, Torey Adame [...] and make recommendations. Please page clinical pharmacist (#[phone]) or call central inpatient pharmacy ([phone]) with questions. Subjective/Objective: Júnior Mas, a 78 [...] by his new PCP Don Estrada MD ([phone]). The patient reports Dr Estrada wanted him [...] you for the consult, Evgeny Akers PharmD, [facility] Pager [phone] Evgeny Robles PharmD - 06/13/2018 8:41 AM [...] on stable regimen. Please page clinical pharmacist (#[phone]) or call central inpatient pharmacy ([phone]) with q uestions. Subjective/Objective: Indication: infectious disorder of joint Therapy start date: 06/12/18 Anticipated duration: TBD Goal trough: ~15 mg/L Urine output: unavailable for most of the past 24 hours Renal function: stable , current SCr 1.66 (Baseline SCr 1.6-1.8) Actual body weight: Weight: 86.7 kg (191 lb 1.6 oz) (06/13/18 1315) Pertinent cultures/sensitivities: 06/12/18 blood and tissue cultures - in process Thank you for the consult, Evgeny Akers PharmD, [facility] Pager [phone] Harley Echols MD - 06/11/2018 7:27 PM PDT [facility] DEPARTMENT OF ORTHOPAEDICS & REHABILITATION HISTORY & PHYSICAL EXAMINATION Patient: Júnior Mas Encounter Date: 06/11/2018 Attending Physician: Maral Leon MD HISTORY OF PRESENT ILLNESS: Júnior Mas is a 78 year old male with CHF, gout, CAD with prior [place], DMII, HTN who presents with 2 weeks of progressive right knee pain, stiffness, fevers and malaise. He had his tota l knee arthroplasty done in [address] Hurst at [facility] for advance d DJD. He's had no [...] culture s pending. He was transferred to [facility] for further management of a septic prosthetic knee. Implants: [place] Triathlon Total Knee System 1. Size 4 [...] consented and added on to the [facility]. Admitted to hospitalist service; keep NPO. PLAN: Disposition: admit to clinical hospitalist service Surgery: yes, I&D with staged revision tomorrow Diet: npo effective now Further Imaging: no additional at this time Supervision: Plan has been discussed with Dr. Leon. Follow up:Please call the clinic to make a follow up appointment in approximately 2 weeks w [facility] ORTHO TRAUMA & FRACTURE, The orthopaedics consult pager is [phone], please call with questions. Harley Weaver MD Resident Department of Orthopaedics Pager [phone] [facility] Department of Orthopaedics & Rehabilitation [phone] [facility] Mail Code: OP31 [facility] [id number] Associated attestation - Ghassan Sherman MD - [...] call me for questions. GHASSAN SHERMAN MD [facility] [address] [place] [address]/[address] [place] [address] documented in this encounter ED [...] (H) 0.70 - 1.30 mg/dL EGFR - [place] 39 (L) >60 mL/min EGFR NON -[place] 32 (L) >60 mL/min SODIUM, PLASMA (LAB) [...] total knee replacement in 2012 done in [facility]. Right k nee also became more swollen at that time, though without any warmth or redness. Pain worse with any movement and better at rest. He was evaluated by his PCP and started on coumadin for question of DVT, though RLE ultraso und was negative. Seen by Dr. René Yen (orthopedics) in [place] 06/09 with the following labs. - WBC [...] 06/11/2018 Heart block 06/11/2018 Pacemaker-dependent due to [place] cardiac rhythm insufficient to support life 8 [...] exam, work-up with his orthopedic surgeon and [place], he has a right knee prosthetic joint infection. Laboratory and imaging results including ESR, CRP were reviewed and interpreted, and notabl e for the following: - significantly elevated ESR and CRP - arthrocentesis at [place] with 79,000 WBCs The patient received the following in the emergency department (including medications, inte rventions, consultations, and reassessments): - orthopedics consultation, plan for [place] tomorrow Given this, patient required admission for further care. We spoke to the [facility] ist service, who accepted patient to their [...] Information: Patient discharging to swing bed at [facility] in [place]. Reviewed DC to SNF AVS with patient and family, all questions answered, reinforced fo llow up appointments per AVS. PICC line in RUE with dressing CDI at discharge. TINO dressing CDI with green light flashing at discharge. Telephone report given to FLY Vanegas at [facility] facility at 1125. Transportation provided by family in private vehicle. Patient dischar taye in stable condition with all belongings. Discharge Nurse: PADMINI MAGAÑA RN andoff - Galina Varela RN - 06/16/2018 11:09 PM PDTNursing Handoff Patient Daily Goal: rest (06/16/18 7145) Patient Specific Preferences: When asked if pt moves while he is in a recliner, he states " no, once I'm there I stay", education provided on importance of repositioning for pressure i njury prevention even in recliner chair. (06/15/18 6627) [facility] IP NURSE HANDOFF: [facility] [...] njury prevention even in recliner chair. (06/15/18 2698) [facility] IP NURSE HANDOFF: [facility] hospital course [...] Met Case Management OPAT Plan of Care: [facility] hospital discharge date: 06/17/2018 This patient will be followed for all post hospital OPAT care needs by: [facility] OPAT/Infectiou s Diseases Clinic, ; IV antibiotic orders were provided to: Other vendor facility, Name: [facility], , , Attn: [...] session other than pt and therapist: rehabilitation medicine physician Current unit: 9k Brief Hospital Course:Júnior Mas [...] FWW: minimum assist, 15 feet with rehabilitation medicine physician stand by assist and follow ing with wheelchair. Chair to chair transfer front wheeled walker and minimum assist Pt left up in recliner chair, call light/urinal and belongings all in reach. [facility] BASIC MOBILITY Difficulty turning over in bed [...] to do/total assistance - Total/Dependen t Assist [facility] Basic Mobility Total Score 14 Interpretation of [facility] Short Form - Basic Mobility: CMS Modifier [...] recommendations: to be determined . BRICE Blount [id number] andoff - Emily Covarrubias RN - 06/16/2018 [...] prevention even in recliner chair. (06/15/18 0953) [facility] IP NURSE HANDOFF: Ara[facility]jo hospital course [...] As evidenced by: Poor intake tonight from 1513-7078 despite encouragement. He states that his water [...] njury prevention even in recliner chair. (06/15/18 4837) [facility] IP NURSE HANDOFF: Araujo hospital course [...] to SNF in 1-2 days [facility] - Umm Joy - 06/15/2018 1:02 PM [...] session other than pt and therapist: rehabilitation medicine physician and student observer Current unit: 9k [facility] Hospital Course: Júnior Mas is a 78 [...] cell phone and water all in reach. [facility] BASIC MOBILITY Difficulty turning over in bed [...] to do/total assistance - Total/Dependen t Assist [facility] Basic Mobility Total Score 9 Interpretation of [facility] Short Form - Basic Mobility: CMS Modifier [...] Equipment recommendations: to be determined BRICE Blount [address] andoff - Maria Dolores Gurrola RN - [...] njury prevention even in recliner chair. (06/15/18 2370) [facility] IP NURSE HANDOFF: Araujo hospital course [...] nutrient distribution type or amount Nutrition Assessment: physics tutor received. Pt does not like food here, [...] Mendez, MS, RD, LD, CNSC Pager #: [phone] Comments: Júnior Mas is a 78 y.o. 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 Monitor UOP- no ouput from 9771-2163. CHS notified- BMS ordered. encourage fluids. MOBILITY: [...] RN - 06/14/2018 2:13 PM PDTNursing Handoff [facility] IP NURSE HANDOFF: Araujo hospital course [...] PM PDT Physical Therapy Evaluation and Treatment [id number] JÚNIOR MAS [facility] Day: 3 Date of : [...] than therapist and pt: patient and son; REPAIRER VENEER SHEET surjit hylton with mobility portion of session. [...] going down ramp) Vision/Hearing: hearing aids (very GALENA; states he refuses hearing aids) Patient / Family Goal: patient will not state; patient : For patient to return home. Language: Lebanese. Barriers: Very GALENA, not fully attentive. Pain: "lots"; refuses to [...] assist after focus on m idline. PT, REPAIRER VENEER SHEET and patient encourage patient to get up to a chair, with assistance, patient r efused 4 times. Outcome Measure(s): 5 Time Sit to Stand: unable. >15 seconds predicts recurrent fallers [facility] BASIC MOBILITY Difficulty turning over in bed [...] to do/total assistance - Total/Dependen t Assist [facility] Basic Mobility Total Score 9 Interpretation of [facility] Short Form - Basic Mobility: CMS Modifier [...] underestimate Ended session: Patient supine in bed. REPAIRER VENEER SHEET attending to patient. ASSESSMENT: Patient presents s/p [...] Patient will score 20 >/= 24/24 on AM-[facility] Basic Mobility outcomes measure upon discharge. Outcome: [...] RN - 06/14/2018 2:37 AM PDTNursing Handoff [facility] IP NURSE HANDOFF: Araujo hospital course [...] RN - 06/13/2018 1:32 AM PDTNursing Handoff [facility] IP NURSE HANDOFF: Araujo hospital course [...] information: see anesthesia record Functional Epidural: No HAND PAINTER: No Respiratory: RR: 17, O2 Sat: 98 %, O2 Delivery: Nasal cannula Breath Sounds: WDL Except (SEUN - not diagnosed) TAYLOR: LLL: RUL: RLL: SEUN No Comment: none Cardiac: BP: 113/47 HR: 94 GI: Nausea/Vomiting Status: No Signs/Symptoms: Interventions: Assessment: Comments: toleratingPO : Last void: at 1900 Contact Name: Beth Contact Number: [phone] Family contacted: Yes Comment:updated family Belongings:none in [...] in the provider note. Sandra Valle MD [employer] ransfer Note - Arnie Busby ANP - 06/11/2018 3:19 PM PDT Call from Dr. Eric Yen, [facility] Pt with hx of CHF with significant fluid retention, right knee replacement, chronic leg ulc ers has infected total knee. Presented to clinic today with right knee swelling and pain. Right knee aspirate today: 79k white cells Markedly elevated CRP and sed rate Temp 99.4, vitals stable and normal Spoke with [facility] orthopedic surgeon Dr. Leon who advised transfer to [facility] ED Pt coming now via [facility] Rita Alex - 06/11/2018 3:19 PM PDTPt with post procedure infection, R total knee. Connected ref with [facility] Rita Barker - 06/11/2018 2:09 PM PDTRef previously consulted [facility] ortho Dr. Maral Leon who advised PT to come to [facility] ED. Advised Dr. Yen to call [...] organism | | | | | | ([facility]) | | + +--------+ + [...] organism | | | | | | ([facility]) | | + +--------+ + [...] organism | | | | | | ([facility]) | | + +--------+ + [...] - DARSHANA | [address] | [place], [place] | | | KIERRA POINT OF CARE | [address] | [address] | | | TESTS | | | [...] [facility] | [address] | [place] [address] | | | SERVICES, CORE | PARK [...] | | | LABORATORY | | | [place]LANDER | | | SERVICES, | | | [...] the MDRD equation recommended by the | [facility] | | National Kidney Disease Education Program. [...] | + + + + + | [facility] | [address] [facility] | [place] [address] | | | SERVICES, CORE | MARY [...] [facility] | [address] | [place], [place] | | | OPHELIA LOZADA OF CARE | [facility] | [address] | | | TESTS | | | [...] [place] | [address] | [place], [place] | | | KIERRA POINT OF CARE | [address] | [address] | | | TESTS | | | | + + + + + X-RAY PORTABLE CHEST 1 VIEW (06/16/2018 4:29 PM PDT) + + | Specimen | + + | | + + + + + | Narrative | Performed At | + + + | EXAM: MT CHEST 1 VIEW HISTORY: PICC placement. Prosthetic [...] Note | + + | Service Account, [employer] - 06/16/2018 4:44 PM PDT EXAM: MT CHEST 1 | | VIEW HISTORY: PICC [...] necessary, edited the report. I agree with [facility] report as now presented. | [...] draws Procedure location: | | | Unit:9 [facility] Room: 14 Providers: Attending name: Attending | | | physically present: No PICC Nurse name: Frances Fair GENERAL HOUSE WORKER | | | VAT Assisted by Christina March RN BSN VAT Pre-Procedure Consent: | | | written consent obtained Consent given by: Patient Patient | | | identity confirmed per protocol: Yes Team Pause: Immediatly prior to | | | the procedure a pause per protocol was called. A pause verifies | | | correct patient, procedure, equipment, technical support manager and site/side | | | marked as [...] | area Basilic vein. Catheter lot number: [id number] with a length of 55 | | [...] - B[facility] | [address] | [place], [place] | | | KIRERA POINT OF CARE | [address] | [address] | | | TESTS | | | [...] [facility] | [address] | [place] [address] | | | SERVICES, CORE | PARK [...] | | | LABORATORY | | | CA[place]MAN ISLANDER | | | SERVICES, | | | [...] | + + + + + | [facility] | [address] | [place] [address] | | | SERVICES, KAREEM | MARY [...] (H) | 70 - 99 mg/dL | [facility] - | | | GLUCOSE, | [...] [place] | [address] | [place], [place] | | | OPHELIA LOZADA OF FUAD | [facility] | [address] | | | TESTS | | | [...] [place] | [address] | [place], [place] | | | OPHELIA LOZDAA OF FUAD | [address] | [address] | | | TESTS | | | [...] DARSHANA | [address] | [place], [place] | | | KIERRA [facility] | [facility] | [address] | | | TESTS | | | [...] | + + + + + | [facility] | [address] | [place] [address] | | | SERVICES, CORE | MARY [...] | | | LABORATORY | | | [place] ISLANDER | | | SERVICES, | | | [...] | + + + + + | [facility] | [address] | [place] [address] | | | SERVICES, CORE | PARK [...] | + + + + + | Index | [address] | [place] [address] | | | SERVICES, CORE | PARK [...] [facility] | [address] | [place] [address] | | | KAREEM FINCH | MARY [...] [facility] | [address] | [place] [address] | | | SERVICES, CORE | PARK [...] | + + + + + | [facility] | [address] | [place] [address] | | | SERVICES, CORE | MARY [...] - DARSHANA | [address] | [place], [place] | | | [place] [facility] OF [facility] | [address] | [address] | | | TESTS | | | [...] | | | LABORATORY | | | CA[place]MAN ISLANDER | | | SERVICES, | | | [...] is appropriate. | LABORATORY | | Page [phone] or call [phone] with questions. Thank you. GFR is | [...] | + + + + + | [facility] | [address] | [place] [address] | | | SERVICES, CORE | PARK [...] | + + + + + | [facility] | [address] | [place] [address] | | | SERVICES, CORE | PARK [...] is appropriate. | LABORATORY | | Page [phone] or [phone] with questions. Thank you. | SERVICES, CORE | + + + + + + + + | Performing | Address | City/State/Zipcode | Phone Number | | Organization | | | | + + + + + | [facility] | [address] | [place] [address] | | | SERVICES, CORE | MARY [...] (H) | 70 - 99 mg/dL | [facility] - | | | GLUCOSE, | [...] [place] | [address] | [place], [place] | | | OPHELIA LOZADA OF CARE | [address] | [address] | | | TESTS | | | [...] [place] | [address] | [place], [place] | | | OPHELIA LOZADA OF CARE | [address] | [address] | | | TESTS | | | [...] [facility] | [address] | [place] [address] | | | SERVICES, CORE | PARK [...] | | | LABORATORY | | | [place] ISLANDER | | | SERVICES, | | | [...] | + + + + + | [facility] | [address] | [place] [address] | | | SERVICES, CORE | PARK [...] [place] | [address] | [place], [place] | | | OPHELIA LOZADA OF FUAD | [facility] | [address] | | | TESTS | | | [...] BERNAAM | [address] | [place], [place] | | | OPHELIA LOZADA OF CARE | [facility] | [address] | | | TESTS | | | [...] (H) | 70 - 99 mg/dL | [facility] - | | | GLUCOSE, | [...] [place] | [address] | [place], [place] | | | OPHELIA LOZADA OF CARE | [address] | [address] | | | TESTS | | | [...] + + | ECG | Borderline prolonged MT | | [facility] | | | [...] DEPT OF | [address] | [place], [place] | | | CARDIOLOGY | [address] | [address] | | + + + + + [...] + + + | [facility] | [address] | [place], [place] | | | KIERRA POINT OF CARE | [address] | [address] | | | TESTS | | | [...] | + + + + + | [facility] | [address] | [place] [address] | | | SERVICES, CORE | PARK [...] | | | LABORATORY | | | CAYMAN ISLANDER | | | SERVICES, | | | [...] | + + + + + | [facility] | [address] | [place] [address] | | | SERVICES, CORE | [address] | | | + + + + + MAGNESIUM, PLASMA (06/12/2018 10:24 PM PDT) + +-------+ + + + | Component | Value | Ref Range | Performed | Pathologist | | | | | At | Signature | + +-------+ + + + | MAGNESIUM,P | 1.8 | 1.6 - 2.6 mg/dL | [facility] | | | LASMA | | | [...] [facility] | [address] | [place] [address] | | | SERVICES, KAREEM | MARY [...] | | | LABORATORY | | | CAYMAN ISLANDER | | | SERVICES, | | | [...] the MDRD equation recommended by the | [facility] | | National Kidney Disease Education Program. [...] [facility] | [address] | [place] [address] | | | SERVICES, CORE | MARY [...] | + + + + + | [facility] | [address] | [place] [address] | | | SERVICES, | [address] [...] [facility] | [address] | [place] [address] | | | SERVICES, | [address] [...] [facility] | [address] | [place] [address] | | | SERVICES, CORE | PARK [...] [facility] | [address] | [place] [address] | | | SERVICES, | [address] [...] | + + + + + | [facility] | [address] | [place] [address] | | | KAREEM FINCH | MARY [...] D[facility]SHANA | [address] | [place], [place] | | | KIERRA POINT OF CARE | [address] | [address] | | | TESTS | | | [...] | | | LABORATORY | | | CAYMAN ISLANDER | | | SERVICES, | | | [...] [facility] | [address] | [place] [address] | | | SERVICES, CORE | PARK [...] | + + + + + | [facility] | [address] | [place] [address] | | | SERVICES, KAREEM | PARK [...] + | [facility] | [address] [facility] | [place], [place] | | | KIERRA [facility] | [address] | [address] | | | TESTS | | | | + + + + + PROCEDURE NOTE (06/12/2018 2:57 PM PDT) + + + | Narrative | Performed At | + + + | Ghassan Sherman MD 06/17/2018 2:15 PM Date of Service: | | | 08/01/2015 Attending Surgeon: Ghassan Sherman MD | | | Animal Scientist(s): mesfin thompson MD Preoperative Diagnosis: 1. 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 Postoperative Diagnosis: | | | same Procedures Performed: 1. Right knee arthrotomy with | | | drainage for infection and polyethylene exchange 2. Application | | | TINO disposible negative pressure wound therapy dressing right knee | | | [id number] Anesthesia: General endotracheal anesthesia. | | | Implants: excahgned alisha triathalon poly size 15, 13mm EBL: 50 | | | Complications: None Specimens: 6 cultures, 1 path Indication | | | For Procedure: Solo Alves was transferred to [facility] for sepsis | | | after [...] | | stands. Ghassan Sherman MD, MPH Traveling Phlebotomist, Dept. of | | | Orthopaedics [facility] [address] | | | Maricel [address]. [address] [place] [address] | | | [email or web address] | | + + + CAPILLARY BLOOD GLUCOSE (NO CHG), POC (06/12/2018 2:42 PM PDT) + +---------+ + + + | Component | Value | Ref Range | Performed | Pathologist | | | | | At | Signature | + +---------+ + + + | BLOOD | 134 (H) | 70 - 99 mg/dL | [facility] - | | | GLUCOSE, | [...] [place] | [address] | [place], [place] | | | OPHELIA LOZADA OF CARE | [address] | [address] | | | TESTS | | | [...] D[facility]SHANA | [address] | [place], [place] | | | OPHELIA LOZADA OF FUAD | [address] | [address] | | | TESTS | | | [...] Propionibacterium due to growth of other | [facility] | | organsims. Gram Stain: No squamous epithelial cells Moderate | | | polymorphonuclear cells No organisms seen | | + + + + + + + + | Performing | Address | City/State/Zipcode | Phone Number | | Organization | | | | + + + + + | [facility] | [address] | [place] [address] | | | [place] | | | [...] - | | | | | | [facility] | | + + + + [...] Propionibacterium due to growth of other | [place] | | organsims. Gram Stain: No squamous epithelial cells No | | | polymorphonuclear cells No organisms seen | | + + + + + + + + | Performing | Address | City/State/Zipcode | Phone Number | | Organization | | | | + + + + + | [facility] | [address] | [place] [address] | | | [place] | | | [...] - | | | | | | [place] | | + + + + + [...] + | [facility] - | [address] | [place] [address] | | | [place] | | | | + + + [...] - | | | | | | [facility] | | + + + + [...] | + + + + + | [facility] - | [address] | [place] [address] | | | [place] | | | | + + + [...] | + + + + + | [facility] - | [address] | [place] [address] | | | [place] | | | | + + + [...] | | | | | | number [phone].A. Knee, | | | | | | [...] + + + + + | [facility] | [address] | [place] [address] | | | PATHOLOGY | [address] [...] | + + + + + | [facility] - | [address] | [place] [address] | | | [place] | | | | + + + [...] [place] | [address] | [place], [place] | | | OPHELIA LOZADA OF CARE | [address] | [address] | | | TESTS | | | [...] [facility] | [address] | [place], [place] | | | KIERRA POINT OF CARE | [address] | [address] | | | TESTS | | | [...] + + | [facility] | [address] [facility] [address] | [place], [place] | | | KIERRA [facility] | [address] | [address] | | | TESTS | | | [...] [facility] | [address] | [place] [address] | | | SERVICES, KAREEM | PARK [...] | + + + + + | Index | [address] | [place] [address] | | | SERVICES, CORE | MARY [...] | + + + + + | [facility] | [address] | [place] [address] | | | SERVICES, CORE | MARY [...] [facility] | [address] | [place] [address] | | | SERVICES, CORE | PARK [...] | + + + + + | [facility] | [address] | [place] [address] | | | SERVICES, | [address] [...] | + + + + + | [facility] | [address] [facility] | [place] [address] | | | SERVICES, CORE | MARY [...] | | | LABORATORY | | | CAYMAN ISLANDER | | | SERVICES, | | | [...] | + + + + + | [facility] | [address] [facility] | [place] [address] | | | SERVICES, CORE | MARY [...] | + + + + + | [facility] | [address] [facility] | [place] [address] | | | AKREEM FINCH | [address] | | | [...] | + + + + + | [facility] | [address] | [place] [address] | | | SERVICES, KAREEM | MARY [...] | + + + + + | [facility] | [address] | [place] [address] | | | SERVICES, CORE | PARK [...] | + + + + + | Index | [address] | [place] [address] | | | SERVICES, CORE | [address] | | | + + + + + ED INFORMATION EXCHANGE (06/11/2018 6:04 PM PDT) + + | Specimen | + + | | + + + + + | Narrative | Performed At | + + + | [id number] This patient has registered at the [place] | [facility] | | [facility] Emergency Department For more | MEDICAL | | information visit: | TECH[employer]OLOGIES | | [email or web address] | | | 35ffec Security Events No [...] Chief Complaint Aug | | | 2017 [facility] [place] Emergency | | | Emergency 10,800. REF Recent Inpatient Visit | | | Summary No recorded inpatient visits. E.D. Visit Count (12 mo.) | | | Facility Visits [facility] 1 Total 1 | | | Note: [...] | | facilities for additional information. 2018 [employer] | | | [facility] - [place], [place] - | | | [email or web address] | | + + + + + | Procedure Note | + + | Service Account, Rtf Results Inbound - 06/11/2018 6:06 PM PDT Formatting of this | | note might be different from the original.DANIEL?NOTIFICATION?06/11/2018 18:04?MAXWELL, | | JÚNIOR? patient has registered at the [facility] | | [place] Emergency Department For more information visit: | | [email or web address] Security | | EventsNo recent Security Events currently on fileED Care GuidelinesThere are currently | | no ED Care Guidelines in DANIEL for this patient. Please check your facility's medical | | records system.Recent Emergency Department Visit SummaryAdmit Date Facility [facility] | | Type Major Type Diagnoses or Chief Complaint Jun 11, 2018 [facility] | | [facility] [place] Emergency Emergency 10,800. REF Recent Inpatient Visit | | SummaryNo recorded inpatient visits. E.D. Visit Count (12 mo.)Facility Visits [place] | | [facility] 1 Total 1 Note: Visits indicate total [...] aforementioned facilities for additional information. ? 2018 [employer] | | [facility] - [place], [place] - [email or web address] | |Facility Visits | |[facility] 1 | |Total 1 | |Note: Visits [...] facilities for additional information. | |? 2018 [employer] 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] PM PDT | | | | | Fri06/12/18 at 2131, Until Wed | | | [...] | | | | | 1 dose, Fri06/12/18 at 2300 | | PM PDT | [...] | | | | | modification) on 06/16/18 at | | | | | | [...]
--- OUTSIDE RECORDS SUMMARY | ~2020-07-26 | XMS | Encounter Summary ---
Demographics + + + | Address | [address] | | | [place] [address] | + + + | Home Phone | | + + + | Preferred Language | Unknown | + + + | Marital Status | | + + + | Yarsanism Affiliation | 1077 | + + + | Race | White | + + + | Ethnic Group | Not or | + + + Author + + + | Author | [facility] | | | and [place] | + + + | Organization | [facility] | | | and [...] Team Providers + +------+ + | Care Coal Equipment Operator Name | Role | Phone | [...] | +--------+ + + + + | 02/10/ | Anesthesia | JOSE RILEY | Thang Sarmiento | | | 2019 | Event | [facility] | MD Nika [address] | | | | | [address] | [address] [place] | | | | | [place] | [address] | | | | | [address] | [phone] | | | | | [phone] | | | +--------+ + + + + Anesthesia Record + + + + + | Procedure Name | Responsible | Anesthesia Start | Anesthesia Stop Time | | | Anesthesiologist | Time | | + + + + + | EGD WITH DILITATION | Thang Sarmiento, | 02/10/19 1317 | 02/10/19 1337 | | (N/A Ann) | MD | | | + + + + + +----+---+ + + | Da | T | Event | Comment | | te | i | | | | | m | | | | | e | | | +----+---+ + + | 04 | 1 | | | | /1 | 3 | | | | 7/ | 1 | | | | 20 | 2 | | | | 19 | | | | +----+---+ + + | | 1 | An Checkout | Pre-use anesthesia machine/equipment checkout. | | | 3 | | | | | 1 | | | | | 2 | | | +----+---+ + + | | 1 | An Start | | | | 3 | Data | | | | 1 | | | | | 3 | | | +----+---+ + + | | 1 | An Start | Room ready, anesthesia equipment checked, essential drugs & | | | 3 | | equipment available. Patient Identity checked, anesthesia plan | | | 1 | | explained and consent obtained. Patient transported to [facility], | | | 7 | | Monitors applied. Reassessment prior to anesthesia | | | | | induction/procedure. | +----+---+ + + | | 1 | an tip now | | | | 3 | | | | | 2 | | | | | 0 | | | +----+---+ + + | | 1 | AN | Per surgeon request | | | 3 | Antibiotic | | | | 2 | declined | | | | 1 | | | +----+---+ + + | | 1 | Pre-Procedu | | | | 3 | ral Timeout | | | | 2 | Completed | | | | 2 | | | +----+---+ + + | | 1 | First | | | | 3 | Inc/Proc St | | | | 2 | | | | | 4 | | | +----+---+ + + | | 1 | an tip now | EGD | | | 3 | | | | | 2 | | | | | 5 | | | +----+---+ + + | | 1 | an tip now | Dilation | | | 3 | | | | | 2 | | | | | 8 | | | +----+---+ + + | | 1 | an tip now | | | | 3 | | | | | 3 | | | | | 5 | | | +----+---+ + + | | 1 | an stop | | | | 3 | data | | | | 3 | | | | | 5 | | | +----+---+ + + | | 1 | An Stop | Patient handed off to recovery nurse. | | | 3 | | | | | 7 | | | +----+---+ + + +------+ | Meds | +------+ + + + | Name | Total | + + + | propofol | 120 mg | + + + | propofol | 39.65 mg | + + + | lactated ringers (LR) infusion | 400 mL | + + + + + | Name | + + | O2 Flow Rate (L/Min) | + + + + | No blood administrations on file. | + + +--------+ + + + | Type | Details | Placement | Removal | +--------+ + + + | Periph | 02/10/19; 1300; Right; Hand; | 02/10/19 1300 by | 02/10/19 1400 by | | eral | [id number] catheter system; | Neyda Johnson RN | Wanda Alvarez RN | | IV | 20 gauge, 1 1/4 in length; | | | | | Coagulation; distraction, | | | | | tolerated well, topical | | | | | anesthetic spray applied; | | | | | catheter/device intact, removed | | | | | per policy/procedure, no longer | | | | | indicated, site care per | | | | | policy/procedure; 02/10/19; 1400 | | | +--------+ + + + [...] encounter OR Notes Anesthesia Postprocedure Evaluation - Thang Sarmiento MD - 02/10/2019 2:13 PM PDTForm atting of this note might be different from the original. ANESTHESIA POSTANESTHESIA EVALUATION Duane L Maxwell 78 y.o. male 1940 [id number] Procedure(s) EGD WITH DILITATION (N/A Mouth) Cooperates? Yes Mental Status Performs simple tasks. Respiratory Satisfactory - Airway patent (self maintained). Cardiovascular Satisfactory - Blood pressure and heart rate acceptable Temperature Satisfactory Pain Satisfactory N/V Control Satisfactory Hydration Satisfactory - No signs of dehydration Complications None apparent Vitals Value Taken Time Temp 36.3 C (97.3 F) 02/10/2019 13:37 Pulse 89 02/10/2019 14:00 Resp 16 02/10/2019 13:52 BP 133/87 02/10/2019 13:52 Arterial Line BP Arterial Line BP 2 SpO2 98 % 02/10/2019 14:00 Vitals shown include unvalidated device data. Electronically signed by Thang Sarmiento MD 02/10/2019 14:13 [facility] nesthesia Preprocedure Evaluation - Thang Sarmiento MD - 2018 7:36 AM PDT ANESTHESIA PREANESTHESIA EVALUATION Duane Mas 78 y.o. male 1940 [id number] Procedure(s): EGD WITH DILITATION (N/A Mouth) Medical,anesthesia, drug, allergy histories reviewed, NPO status verified. ECG reviewed. Labs reviewed. (+) perioperative beta-afua/statin given/taken. . Review of Systems / Med History Anesthesia History EGD in 2017 - did well with TIVA. Cardiovascular (+) dyspnea on minimal exertion, orthopnea, pacemaker (Medtronic) (+) Dysrhythmias: , Exer cise tolerance <4 METS (+) hypertension, (+) coronary artery disease (s/p PTCA and CABG) of [place] artery. (+) congestive heart failure. . Pulmonary (+) shortness of breath (Laying flat). (+) sleep apnea. (+) Sleep apnea history/interventio ns: known. Stop Bang Score: 6. Endocrine (+) obesity: BMI (30-39) (+) Diabetes: Hematology/Other (+) coagulopathy (Long-term coumadin - INR 1.8 today). Neurology (+) arthritis (Ankylosing spondylitis). Physical Exam Airway MP II, TM >3 FB, Mouth opening <2 FB. Neck: limited ROM, extends <30 degrees. Jaw prot rusion limited. Dental Grossly normal except where noted below.; CV Rhythm regular. Rate Normal. (-) murmur. Pulm Clear to auscultation bilaterally. Neuro Grossly normal. Other Pacemaker in place Anesthesia Plan ASA 4 Type: TIVA, general. Induction: Intravenous. Potential problems: None anticipated. Monitors: Standard ASA monitors. Consent statement:Anesthetic plan, alternatives, risks and benefits discussed with patient and spouse. Risks discussed included (but were not limited to): pain, respiratory events, voice injury, dental injury, perioperative CV events, sore throat, nausea, heart problems,. Consenting person understands and agrees to proceed . PARQ. TIVA with possibility of advanced airway if clinically indicated. Patient Active Problem List: SEUN (obstructive sleep apnea) Ankylosing spondylitis Dysphagia GERD (gastroesophageal reflux disease) Hypertension CAD (coronary artery disease) H/O CABG H/O PTCA - with Coronary STENT Placement Cardiac pacemaker in situ - MEDTRONIC Class I, BMI 30-34.9 [facility] current use of anticoagulant - COUMADIN Beta Blockers - Daily Use Diabetes mellitus, type II - ORAL Control Jxvdl-do-Hvirux lying flat DAIJA II Inhibitors - Daily Use Chronic renal insufficiency, stage 4 (severe) . Electronically Signed by: Thang Sarmiento MD [facility] date/time: 02/10/2019 7:36 [facility] Miscellaneous Notes Addendum Note - Thang Sarmiento MD - 02/10/2019 2:50 PM PDTFormatting of this note mi ght be different from the original. Addendum created 02/10/19 4100 by Thang Sarmiento MD SmartForm saved documented in th is encounter Plan of Treatment +--------+ + + [...] filedocumented in this encounter Administered Medications + +---------+ +------+------+------+ | Medication Order | MAR | Action | Dose | Rate | Site | | | Action | Date | | | | + +---------+ +------+------+------+ | lactated ringers (LR) infusion | New Bag | 02/11/20 | | | | | at 100 mL/hr, Intravenous, | | 19 1:08 | | | | | CONTINUOUS, Starting 02/10/19 | | PM PDT | | | | | at 1300, Pre-op | | | | | | + +---------+ +------+------+------+ +---+---+ | | | +---+---+ + +-------+ +-------+---+---+ | propofol (DIPRIVAN) injection | Given | 02/11/20 | 40 mg | | | | Intravenous, PRN, Starting Wed | | 19 1:25 | | | | | 02/10/19 at 1323, Anesthesia | | PM PDT | | | | | Intra-op | | | | | | + +-------+ +-------+---+---+ +-------+ +-------+---+---+ | Given | 02/11/20 | 40 mg | | | | | 19 1:24 | | | | | | PM PDT | | | | +-------+ +-------+---+---+ | Given | 02/11/20 | 40 mg | | | | | 19 1:23 | | | | | | PM PDT | | | | +-------+ +-------+---+---+ +---+---+ | | | +---+---+ + +---------+ + +-------+---+ | propofol (DIPRIVAN) injection | New Bag | 02/11/20 | 150 | 79.3 | | | Intravenous, CONTINUOUS PRN, | | 19 1:25 | mcg/kg/m | mL/hr | | | Starting 02/10/19 at 1325, | | PM PDT | in | | | | Anesthesia Intra-op | | | | | | + +---------+ + +-------+---+ +---+---+ | | | +---+---+ documented in this encounter"
--- OUTSIDE RECORDS SUMMARY | ~2020-07-26 | XMS | Encounter Summary ---
Demographics + + + | Address | [address] | | | [place] [address] | + + + | Home Phone | | + + + | Preferred Language | Unknown | + + + | Marital Status | Unknown | + + + | Baptism Affiliation | PRO | + + + | Race | White | + + + | Ethnic Group | Not or | + + + Author + + + | Author | [facility] | + + + | Organization | [facility] | + + + | Address | Unknown | + + + | Phone | Unavailable | + + + Support + + +---------+ + | Name | Relationship | Address | Phone | + + +---------+ + | Beth Mas | ECON | Unknown | | + + +---------+ + Care Team Providers + +------+ + | Care Boat Builder And Repairer Name | Role | Phone | + +------+ + | Gilberto Estrada MD | PCP | | + +------+ + Reason for Visit + +--------+ + | Reason | Onset | Comments | | | Date | | + +--------+ + | Refill Request | 01/11/ | | | | 2019 | | + +--------+ + Encounter Details +--------+--------+ + + + | Date | Type | Department | Care Team | Description | +--------+--------+ + + + | 01/11/ | Refill | Infectious | Sukerman, Abril S, | Refill Request | | 2019 | | [facility] | MD [address] | | | | | [address] | [address] | | | | | [address] [facility] | [place], [place] | | | | | [place] | [address] | | | | | [place], [place] | [phone] | | | | | [address] | | | | | | [phone] | | | +--------+--------+ + + + [...]
--- OUTSIDE RECORDS SUMMARY | ~2020-07-26 | XMS | Encounter Summary ---
Demographics + + + | Address | [address] | | | [place] [address] | + + + | Home Phone | | + + + | Preferred Language | Unknown | + + + | Marital Status | | + + + | Gnosticist Affiliation | 1077 | + + + | Race | White | + + + | Ethnic Group | Not or | + + + Author + + + | Author | [facility] | | | and [place] | + + + | Organization | [facility] | | [...] Team Providers + +------+ + | Care Insurance Policy Clerk Name | Role | Phone | + +------+ + | Erin Forrester MD | PCP | | + +------+ + Encounter Details +--------+ + + + + | Date | Type | Department | Care Team | Description | +--------+ + + + + | 09/12/ | Orders Only | [facility] | Robel Ricci | | | 2015 | | [facility] | MD [address] | | | | | [address] | [address] | | | | | [place] | [place] [address] | | | | | [address] | [phone] | | | | | [phone] | | | +--------+ + + + [...] | ECG 12 LEAD | Routin | 09/12/2016 | | Results for this | | | e | 12:08 PM | | procedure are in the | | | | PST | | results section. | + +--------+ + + + documented in this encounter Results ECG 12 lead (09/12/2016 12:08 PM PST) + + + + + [...] branch | | | | | | blockPossible Inferior | | | | | | infarct (cited on or | | | | | | before | | | | | | 31-OCT-2015)Abnormal | | | | | | ECGWhen compared with | | | | | | ECG of 31-OCT-2015 | | | | | | 14:20,No significant | | | | | | change was foundPlease | | | | | | refer to Providers | | | | | | office visit note for | | | | | | Providers | | | | | | Interpretation.Confirmed | | | | | | by [facility] Read Only, | | | | | | [facility] ([id number]), | | | | | | advertising editor Demetri Norton | | | | | | ([id number]) on 10/08/2016 | | | | | | 8:28:04 AM | | | | + + + + + + + + | Specimen | + + | | + + + + + | Narrative | Performed At | + + + | Historically converted procedure from [facility] environment | EXTERNAL LAB | + + + + +---------+ + + | Performing | Address | City/State/Zipcode | Phone Number | | Organization | | | | + +---------+ + + | EXTERNAL LAB | | | | + +---------+ + + documented in this encounter Visit Diagnoses Not on filedocumented in this encounter"
--- OUTSIDE RECORDS SUMMARY | ~2020-07-26 | XMS | Encounter Summary ---
Demographics + + + | Address | [address] | | | [place] [address] | + + + | Home Phone | | + + + | Preferred Language | Unknown | + + + | Marital Status | | + + + | Cheondoism Affiliation | 1077 | + + + [...] Team Providers + +------+ + | Care Paint Line Operator Name | Role | Phone | + +------+ + PCP | Unavailable | + +------+ + Encounter Details +--------+ + + + + | Date | Type | Department | Care Team | Description | +--------+ + + + + | 05/02/ | [facility] | Olaf Nicole | | | [facility] - | Encounter | [facility] | MD [address] | | | | | CARDIAC TRANSPLANT | [address] | | | 05/03/ | | [address] | [place] [address] | | | 2000 | | [place] | [phone] | | | | | [address] | | | | | | [phone] | | | +--------+ + + + [...]
--- OUTSIDE RECORDS SUMMARY | ~2020-07-26 | XMS | Encounter Summary ---
Demographics + + + | Address | [address] | | | [place] [address] | + + + | Home Phone | | + + + | Preferred Language | Unknown | + + + | Marital Status | Unknown | + + + | Druze Affiliation | PRO | + + + | Race | White | + + + | Ethnic Group | Not or | + + + Author + + + | Author | [facility] | + + + | Organization | [facility] | + + + | Address | Unknown | + + + | Phone | Unavailable | + + + Support + + +---------+ + | Name | Relationship | Address | Phone | + + +---------+ + | Beth Mas | ECON | Unknown | | + + +---------+ + Care Team Providers + +------+ + | Care Joy Operator Name | Role | Phone | [...] | | | | | associated | [address] | | | | | | with | [address] | | | | | | internal | [place] Norris | | | | | | right knee | [place], [place] | | | | | | prosthesis, | [address] | | | | | | subsequent | Phone: | | | | | | encounter | [phone] | | | | | | Procedures | Fax: | | | | | | OCCUPATIONAL | [phone] | | | | | | THERAPY [...] | | | | | associated | [address] | | | | | | with | [address] | | | | | | internal | Mary Norris | | | | | | right knee | [place], [place] | | | | | | prosthesis, | [address] | | | | | | subsequent | Phone: | | | | | | encounter | [phone] | | | | | | Procedures | Fax: | | | | | | PHYSICAL | [phone] | | | | | | THERAPY [...] + + | 06/11/ | Hospital | [facility] [address] | Sandra Valle MD | | | 2018 - | Encounter | [address] | [address] | | | | | [place], | [address] | | | 06/17/ | | [place] [address] | [place], [place] | | | 2018 | | [phone] | [address] | | | | | | [phone] | | | | | | | | | | | | Edyta Demarco MD | | | | | | [address] | | | | | | [address] | | | | | | [place], [place] | | | | | | [address] | | | | | | [phone] | | | | | | | | | | | | Dean Ugarte MD | | | | | | [address] | | | | | | [address] [place], | | | | | | [place] [address] | | | | | | [phone] | | | | | | | | | | | | Stephan Mercado MD | | | | | | [address] | | | | | | [address] | | | | | | [place], [place] | | | | | | [address] | | | | | | [phone] | | | | | | | | | | | | Dayan Valverde, | | | | | | [address] | | | | | | [address] | | | | | | [place], [place] | | | | | | [address] | | | | | | [phone] | | | | | | | | | | | | Hugh Park MD | | | | | | [address] | | | | | | [place] Norris [place], | | | | | | [place] [address] | | | | | | [phone] | | | | | | | | | | | | Ann Mahmood MD | | | | | | [address] | | | | | | [address] | | | | | | [place], [place] | | | | | | [address] | | | | | | [phone] | | | | | | | [...] (s/p PCI x3, CABG x2) complicated by tobacco grader erich systolic heart failure (EF 45%) due [...] excellent response. He will continue PT/OT at [facility] swing bed unit. Per orthopedic [...] I-CAPS 280-10-2 mg Cap Generic drug: antiox. no.47-xemm8g-cmrhnbl3d-yzc-kpd Take 1 capsule by mouth once daily. [...] (Non-Steroidal Anti-Inflammatory Drug) Renal Failure Avoid per Water Pollution Specialist recommendations Sulfa (Sulfonamide Antibiotics) Rash Vital Signs [...] . Specialty: Acute Care Hospital Contact information [address] [facility] [address] [place] Location: [facility] swing bed unit Appointments: Dr. Sherman on 07/23/18 at 10:40am. The discharge note was forwarded to the PCP for review. Discharging Physician: Ann Mahmood MD Suggested CPT: 53986 Discharge Management > 30 minute I spent more than 35 minutes xkvn-jx-jmlc with the patient of which 70% was [...] | | 0 | | | | no.56-agyg6i-ndcjzxp3b-wyk-sfv | mouth once daily. | | | [...] negative pressure wound therapy dressing right knee [id number] Subjective: Doing ok overall. No CP/SOB. Tolerating [...] Plan to DC today to SNF in [place]. SNF can pull sutures at 2 weeks from operat kai date (June 27 is 2 weeks post op). Plan to return to Dr. Sherman' clinic 6 weeks an d also have ID clinic visit on that day. Appreciate [facility] and ID help in managing [...] knee at that time. Elias Soriano MD [facility] Department of Orthopaedics and Rehabilitation PGY-1 Pager [phone] Ann Vang MD - 4:42 PM PDT [...] (s/p PCI x3, CABG x2) complicated by tobacco grader erich systolic heart failure (EF 45%) due [...] mg daily Dispo: Anticipate discharge tomorrow [facility] bed [facility] if renal function is s table Code status: Full code Diet: Regular diet Prophy: warfarin and heparin Ann Mahmood MD Joint Runnerfast food shift lead Clinical Hospitalist and Medicine Teaching Services [facility] [place] Pager [phone] Suggested CPT: 96888 Subsequent Visit Detailed/High complexity 35 min I spent 37 minutes whqz-yk-snkc with the patient of which 78% was [...] negative pressure wound therapy dressing right knee [id number] Subjective: Doing ok overall. No CP/SOB. Tolerating [...] to home as t ransporting back to [place] may present the patient and family undo hardship. 6. Dressings/Drains: Pulled yesterday? 7. Dispo/Discharge: Anticipate discharge to SNF in next 1-3 days if all criteria met. 8. Follow-up: Please call the clinic to make a follow up appointment in approximately 2 wee ks with ORTHO TRAUMA & FRACTURE, . AP and lateral of R knee at that time. Elias Soriano MD [facility] [place] Department of Orthopaedics and Rehabilitation PGY-1 Pager [phone] atel, Tanvir - 06/16/2018 8:20 AM PDT [...] three and a half hours away from [place]. At this time, we are unsur e of his ability to follow up with an OPAT clinic or if there is a provider near [place], where the patient resides. 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 This patient was staffed [facility] Dr. Villalobos, who agrees with the above assessment and plan unless otherwise documented. Tanvir Ayala [facility] P SUBJECTIVE Interval Events: No acute events overnight S: patient reports he is feeling well this morning. States he was able to meet with a case aide and had decided to go to a [...] MD Division of Hospital Medicine [facility] [place] Pager [phone] I spent more than 35 minutes vegm-aj-otdb with the patient of which greater than [...] negative pressure wound therapy dressing right knee [id number] Subjective: Doing ok overall, not too much pain in right knee. Looking forward to getting sofa back upholsterer to home, "My wants to get back [...] to home as t ransporting back to [place] may present the patient and family undo hardship. 6. Dressings/Drains: Continue drain 7. Dispo/Discharge: Anticipate discharge to SNF in next 1-3 days if all criteria met. 8. Follow-up: Please call the clinic to make a follow up appointment in approximately 2 wee ks with ORTHO TRAUMA & FRACTURE, . AP and lateral of R knee at that time. Sisi Pablo [facility] Orthopaedic Trauma Surgery Pager [phone] Stephan Aguirre MD - 06/14/2018 8:59 AM [...] MD Division of Hospital Medicine [facility] [place] Pager [phone] I spent more than 35 minutes fuav-iu-dipq with the patient of which greater than [...] negative pressure wound therapy dressing right knee [id number] Subjective: Pain improving in R knee. Objective: [...] a [facility] FRACTURE, . AP and lateral of R knee at that time. SEBAS PLEITEZ MD Pager [phone] Stephan Aguirre M D - 06/13/2018 9:51 [...] MD Division of Hospital Medicine [facility] Pager [phone] I spent more than 35 minutes zzvw-ah-djna with the patient of which greater than [...] negative pressure wound therapy dressing right knee [id number] Subjective: Painful in R knee today, but [...] a [facility] FRACTURE, . AP and lateral of R knee at that time. SEBAS PLEITEZ MD Pager [phone] Stephan Aguirre M D - 06/12/2018 1:24 [...] MD Division of Hospital Medicine [facility] Pager [phone] I spent more than 35 minutes vbnf-fg-kfzi with the patient of which greater than [...] total arthroplasty. Nika martinez was referred to [facility] for joint revision, and presented emergently to [facility] ED from [facility] ([place], [place]). Prior to presentation patient states that [...] IV (baseline cr 1.8-2.0), has had prior PA, no CVA. For his right lower extremity [...] mild distal inferior-apical ischemia, LVEF 53%. -10/2015 [facility] with 90% ostial first diagonal, 85% ostial second diagonal, occluded stent of proximal RCA with left to right coronary collaterals, Patent SVG to LAD Ischemic Cardiomyopathy c/b Chronic Systolic Heart Failure and Diastolic Heart Failure -10/2015 [facility] with EF 45% and inferiobasal akinesia Obstructive [...] po daily Carvedilol 12.5mg po daily -Y Le[place]-3 fatty acid 1,200mg po bid Acetaminophen-codeine po [...] the Social Hx as appropriate. 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 [...] on going soft tisuse infection. -would consult exterior designer for enhanced nutrition in post-operative period Non-Insulin [...] as unclear why patient was placed on moth exterminator anticoagulation after prior provoked DVT. Dean Ugarte MD Clinical Hospitalist Services [facility] Pager [phone] 06/11/2018 10:44 PM [facility] DEPARTMENT: Hosp ([facility]) - [phone] Place of Service: Date of Service: 07/25/2016 [facility] [id number] Modifiers:GC Resident Involved: No Service: PRIMARY HOSPITALIST Suggested CPT: 34389 Initial Visit Comp/High Complexity 70 min I [...] Antibiotics and Frequent lab draws Procedure location: Unit:[facility] Room: 14 Providers: Attending name: Attending physically present: No PICC Nurse name: Frances Fair RN BSN VAT Assisted by Christina March RN BSN VAT Pre-Procedure Consent: written consent obtained Consent given by: Patient Patient identity confirmed per protocol: Yes Team Pause: Immediatly prior to the procedure a pause per protocol was called. A pause veri fies correct patient, procedure, equipment, manager technical support and site/side marked as required. CLABSI [...] area Basilic vein. Cat heter lot number: [id number] with a length of 55 cm was [...] Service: 08/01/2015 Attending Surgeon: Ghassan Sherman MD Materials Engineering Technician(s): mesfin thompson MD Preoperative Diagnosis: 1. right total knee prosthetic joint infection. Postoperative Diagnosis: same Procedures Performed: 1. Right knee arthrotomy with drainage for infection and polyethylene exchange 2. Application TINO disposible negative pressure wound therapy dressing right knee [id number] Anesthesia: General endotracheal anesthesia. Implants: excahgned alisha triathalon poly size 15, 13mm EBL: 50 Complications: None Specimens: 6 cultures, 1 path Indication For Procedure: Solo Alves was transferred to [facility] for sepsis after previosuly having been treated with a right total knee. He ws medically unstable and transferred [facility]. An apsirate was positive. I [...] Patricia wrap. He was then awoken from [facility] and transported back to the postanesthesia [...] as it stands. Ghassan Sherman MD, MPH Hand Umbrella Tipper, [place] [address] [email or web address] in this encounter Consult [...] patient will need to follow up at [facility] on July 23 with orthopedics. During t hat time,we will cooridnate so that he may follow up with ID/OPAT in regards to his treatmen t. He will be discharged to [facility] to receive inpatient therapy and OPAT. 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 at [facility]. If patient is discharged fr [...] the primary team. This patient was staffed [facility] Dr. Villalobos, who agrees with the above assessment and plan unless otherwise documented. Tanvir Ayala [facility] P SUBJECTIVE Interval Events: [...] 07/24/18 to be continued via OPAT at [facility] Microbiology Data: Source Date Results Tissue cultures [...] tablet allopurinol 300 mg oral tablet antiox.mv no.03-yntt8y-mtllrrz5w-sei-jbv (I-CAPS) 280-10-2 mg oral capsule carvedilol 12.5 [...] Anticoagulation Clinic/Provider: New PCP Dr. Don Estrada ([phone]) Date INR Warfarin Dose 06/17/2018 1.78 2.5 [...] make recommendations. Please page clinical ph armacist (#[phone]) or call central inpatient pharmacy ([phone]) with questions. Rashard Jacob Pharm. D. Candidate Associated attestation - [facility] - 06/17/2018 11:14 AM PDT--I have reviewed the note written by pharmacy intake coordinator Rashard Jacob and I agree with the content and his plan for warfarin on this patient. Thank you, [facility]. Pager [phone] [facility] - 06/16/2018 1:26 PM PDTFormatting [...] Anticoagulation Clinic/Provider: new PCP Dr. Don Estrada ([phone]) Date INR Warfarin Dose 06/16/2018 1.51 2.5mg [...] make recommendations. Please page clinical ph armacist (#[phone]) or call central inpatient pharmacy ([phone]) with questions. Thank you for consult, [facility]. Pager [phone] Trish Blankenship MD - 10:46 AM PDTAssociated Order(s): IP CONSULT TO INFECTIOUS DISEASESFormatting of [facility] s note might be different from the original. [facility] Infectious Diseases OPAT Referral for Discharge Planning Team B: OPAT RN Jaye Winchester, Office: [phone], Pager: [phone] ID Diagnosis: PJI Antibiotic agent and dosing: [...] has an ortho appointment 10:40 sa day) Engine Testing Supervisor: For all patients requiring IV antibiotic therapy, please route your OPAT [place] n of Care Note (.CMOPAT) to [facility] "p OPAT/Infectious Diseases clinic" Pool at [...] and make recommendations. Please page clinical pharmacist (#[phone]) or call central inpatient pharmacy ([phone]) with questions. Subjective/Objective: Allergies: Nsaids (non-steroidal anti-inflammatory [...] by his new PCP Don Estrada MD ([phone]). The patient reports Dr Estrada wanted him [...] Carrington. 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 We will discuss [facility] OPAT vs outside providers. Formalized recs pending Recommendations were communicated directly to the primary team. This patient was staffed [facility] Dr. Villalobos, who agrees with the above assessment and plan unless otherwise documented. Thank you for the consult, we will follow along with you. Tanvir Ayala [facility] P SUBJECTIVE HPI: Júnior Mas is a [...] arthritis. The patient was then transferred from [place] to [facility] for fu rther evaluation. While here, [...] 300 mg by mouth once daily. antiox. no.19-wxxi9b-hjcqobf5d-rje-osd (I-CAPS) 280-10-2 mg oral capsule Take 1 [...] mouth every Friday. Take 1 tablet by [facility] all other days of the week. Current [...] (Non-Steroidal Anti-Inflammatory Drug) Renal Failure Avoid per Water Pollution Specialist recommendations Sulfa (Sulfonamide Antibiotics) Rash Social History [...] care. Ishaan Villalobos MD [facility], Pharm[facility] - 06/14/2018 7:36 PM PDT [...] lab draw. - Please page clinical pharmacist (#[phone]) or call central inpatient pharmacy ([phone]) wit h questions. Subjective/Objective: Júnior Mas, a [...] CULTURE, TISSUE-PROSTHETIC JOINT INFECTION AER AND MARIELOS [[id number]] (Abnormal) [facility] Collec dilcia: 06/12/18 1354 Lab Status: Preliminary result Specimen: Tissue from Knee - right Updated: 06/14/18 1344 CULTURE RESULT [facility] Staphylococcus epidermidis (A) Ref Range: Narrative: Culture Report: Staphylococcus epidermidis Gram Stain: No squamous epithelial cells Rare polymorphonuclear cells No organisms seen Thank you, Ramon Mercado, PharmD, [facility] Clinical Pharmacist elphine, Torey Adame rmD - [...] and make recommendations. Please page clinical pharmacist (#[phone]) or call central inpatient pharmacy ([phone]) with questions. Subjective/Objective: Júnior Mas, a 78 [...] by his new PCP Don Estrada MD ([phone]). The patient reports Dr Estrada wanted him [...] you for the consult, Evgeny Akers PharmD, [facility] Pager [phone] Evgeny Robles PharmD - 06/13/2018 8:41 AM [...] on stable regimen. Please page clinical pharmacist (#[phone]) or call central inpatient pharmacy ([phone]) with q uestions. Subjective/Objective: Indication: infectious disorder of joint Therapy start date: 06/12/18 Anticipated duration: TBD Goal trough: ~15 mg/L Urine output: unavailable for most of the past 24 hours Renal function: stable , current SCr 1.66 (Baseline SCr 1.6-1.8) Actual body weight: Weight: 86.7 kg (191 lb 1.6 oz) (06/13/18 4749) Pertinent cultures/sensitivities: 06/12/18 blood and tissue cultures - in process Thank you for the consult, Evgeny Akers PharmD, [facility] Pager [phone] Harley Echols MD - 06/11/2018 7:27 PM PDT [facility] [place] DEPARTMENT OF ORTHOPAEDICS & REHABILITATION HISTORY & PHYSICAL EXAMINATION Patient: Júnior Mas Encounter Date: 06/11/2018 Attending Physician: Maral Leon MD HISTORY OF PRESENT ILLNESS: Júnior Mas is a 78 year old male with CHF, gout, CAD with prior PA, DMII, HTN who presents with 2 weeks of progressive right knee pain, stiffness, fevers and malaise. He had his tota l knee arthroplasty done in [address] Hurst at [facility] for advance d DJD. He's had no [...] culture s pending. He was transferred to [facility] for further management of a septic prosthetic knee. Implants: Mohler Triathlon Total Knee System 1. Size 4 [...] consented and added on to the OR [facility] edu. Admitted to hospitalist service; keep NPO. PLAN: Disposition: admit to clinical hospitalist service Surgery: yes, I&D with staged revision tomorrow Diet: npo effective now Further Imaging: no additional at this time Supervision: Plan has been discussed with Dr. Leon. Follow up:Please call the clinic to make a follow up appointment in approximately 2 weeks w [facility] ORTHO TRAUMA & FRACTURE, The orthopaedics consult pager is #[phone], please call with questions. Harley Weaver MD Resident Department of Orthopaedics Pager [phone] [facility] [place] Department of Orthopaedics & Rehabilitation [address] [facility] Mail Code: OP31 [facility] [address] Associated attestation - Ghassan Sherman MD - [...] call me for questions. GHASSAN SHERMAN MD [facility] [address] [id number] [place] [address] documented in this encounter ED [...] (H) 0.70 - 1.30 mg/dL EGFR - ENGLISH 39 (L) >60 mL/min EGFR NON -ENGLISH 32 (L) >60 mL/min SODIUM, PLASMA (LAB) [...] total knee replacement in 2012 done in [facility]. Right k nee also became more swollen at that time, though without any warmth or redness. Pain worse with any movement and better at rest. He was evaluated by his PCP and started on coumadin for question of DVT, though RLE ultraso und was negative. Seen by Dr. René Yen (orthopedics) in [place] 06/09 with the following labs. 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 Laboratory and imaging results including ESR, CRP were reviewed and interpreted, and notabl e for the following: - significantly elevated ESR and CRP - arthrocentesis at [place] with 79,000 WBCs The patient received the following in the emergency department (including medications, inte rventions, consultations, and reassessments): - orthopedics consultation, plan for [place] tomorrow Given this, patient required admission for further care. We spoke to the [facility] ist service, who accepted patient to [...] Information: Patient discharging to swing bed at [facility] in [facility]. Reviewed DC to SNF AVS with patient and family, all questions answered, reinforced fo llow up appointments per AVS. PICC line in RUE with dressing CDI at discharge. TINO dressing CDI with green light flashing at discharge. Telephone report given to FLY Vanegas at [facility] facility at 1125. Transportation provided by family in private vehicle. Patient dischar taye in stable condition with all belongings. Discharge Nurse: PADMINI MAGAÑA RN andoff - Galina Varela RN - 06/16/2018 11:09 PM PDTNursing Handoff Patient Daily Goal: rest (06/16/18 0645) Patient Specific Preferences: When asked if pt moves while he is in a recliner, he states " no, once I'm there I stay", education provided on importance of repositioning for pressure i njury prevention even in recliner chair. (06/15/18 3273) [facility] IP NURSE HANDOFF: [facility] hospital course [...] njury prevention even in recliner chair. (06/15/18 0337) [facility] IP NURSE HANDOFF: [facility]jo hospital course [...] Met Case Management OPAT Plan of Care: [facility] hospital discharge date: 06/17/2018 This patient will be followed for all post hospital OPAT care needs by: [facility] OPAT/Infectiou s Diseases Clinic, ; IV antibiotic orders were provided to: Other vendor facility, Name: [facility] Swi ng Bed, , , Attn: Emily [...] throughout session other than pt and therapist: homemaking rehabilitation consultant Current unit: 9k Brief Hospital Course:Júnior Mas [...] with FWW: minimum assist, 15 feet with homemaking rehabilitation consultant stand by assist and follow ing with wheelchair. Chair to chair transfer front wheeled walker and minimum assist Pt left up in recliner chair, call light/urinal and belongings all in reach. [facility] BASIC MOBILITY Difficulty turning over in bed [...] to do/total assistance - Total/Dependen t Assist [facility] Basic Mobility Total Score 14 Interpretation of [facility] Short Form - Basic Mobility: CMS Modifier [...] recommendations: to be determined . BRICE Blount [address] andoff - Emily Covarrubias RN - 06/16/2018 [...] prevention even in recliner chair. (06/15/18 0953) [facility] IP NURSE HANDOFF: [facility] [...] As evidenced by: Poor intake tonight from 6617-2244 despite encouragement. He states that his water [...] njury prevention even in recliner chair. (06/15/18 5853) [facility] IP NURSE HANDOFF: [facility] hospital course [...] to SNF in 1-2 days [facility] [place] - Umm Joy - 06/15/2018 1:02 PM [...] throughout session other than pt and therapist: homemaking rehabilitation consultant and student observer Current unit: 9k [facility] Hospital Course: Júnior Mas is a 78 [...] cell phone and water all in reach. [facility] BASIC MOBILITY Difficulty turning over in bed [...] to do/total assistance - Total/Dependen t Assist [facility] Basic Mobility Total Score 9 Interpretation of [facility] Short Form - Basic Mobility: CMS Modifier [...] Equipment recommendations: to be determined BRICE Blount 07957 andoff - Maria Dolores Gurrola RN - [...] njury prevention even in recliner chair. (06/15/18 8337) [facility] IP NURSE HANDOFF: [facility] course [...] nutrient distribution type or amount Nutrition Assessment: weaver wire loom received. Pt does not like food here, [...] Mendez, MS, RD, LD, CNSC Pager #: [phone] Comments: Júnior Mas is a 78 y.o. [...] 2013 Total Knee Replacement who [facility] septic a rthritis of right knee [...] 29.04 kg/m2 AdjBW: 71.5 kg Estimated needs: 7626-2437 kcal/day (25-30 kcal/kg AdjBW); 72-107 g protein/day (1-1.5 g/kg AdjBW) Catrachita - Justus Zapata, RN - 06/15/2018 3:49 AM PDTNursing Handoff [facility] IP NURSE HANDOFF: [facility] hospital course [...] RN - 06/14/2018 5:38 PM PDTNursing Handoff [facility] IP NURSE HANDOFF: [facility] hospital course [...] ordered peaches and m eatloaf- cbg 215. Júinor stated nothing sounds good to eat or tastes good. He states he doesn 't have much of an appetite. Nutrition consulted placed. For dinner ate peachs, bite of vipul tloaf, OJ and half chicken soup brought in. NURSING ASSESSMENT & RECOMMENDATIONS FORWARD Nursing Assessment of Patient Stability Risk: Moderately unstable Recommendations Forward: Poor appetite- encourage meals. Monitor UOP- no ouput from 5144-3336. CHS notified- BMS ordered. encourage fluids. MOBILITY: [...] RN - 06/14/2018 2:13 PM PDTNursing Handoff [facility] IP NURSE HANDOFF: [facility] hospital course [...] PM PDT Physical Therapy Evaluation and Treatment [id number] JÚNIOR MAS [facility] Day: 3 Date of : 1940 [...] than therapist and pt: patient and son; SAFETY ADMIN ASSISTANT surjit hylton with mobility portion of session. [...] going down ramp) Vision/Hearing: hearing aids (very YAVAPAI-APACHE; states he refuses hearing aids) Patient / Family Goal: patient will not state; patient : For patient to return home. Language: Anguillan. Barriers: Very YAVAPAI-APACHE, not fully attentive. Pain: "lots"; refuses to [...] assist after focus on m idline. PT, SAFETY ADMIN ASSISTANT and patient encourage patient to get up to a chair, with assistance, patient r efused 4 times. Outcome Measure(s): 5 Time Sit to Stand: unable. >15 seconds predicts recurrent fallers [facility] BASIC MOBILITY Difficulty turning over in bed [...] to do/total assistance - Total/Dependen t Assist [facility] Basic Mobility Total Score 9 Interpretation of [facility] Short Form - Basic Mobility: CMS Modifier [...] underestimate Ended session: Patient supine in bed. SAFETY ADMIN ASSISTANT attending to patient. ASSESSMENT: Patient presents s/p [...] Patient will score 20 >/= 24/24 on [facility] Basic Mobility outcomes measure upon discharge. Outcome: [...] RN - 06/14/2018 2:37 AM PDTNursing Handoff [facility] IP NURSE HANDOFF: [facility] hospital course [...] RN - 06/13/2018 1:32 AM PDTNursing Handoff [facility] IP NURSE HANDOFF: [facility] hospital course [...] information: see anesthesia record Functional Epidural: No DEPUTY ATTORNEY GENERAL: No Respiratory: RR: 17, O2 Sat: 98 %, O2 Delivery: Nasal cannula Breath Sounds: WDL Except (SEUN - not diagnosed) TAYLOR: LLL: RUL: RLL: SEUN No Comment: none Cardiac: BP: 113/47 HR: 94 GI: Nausea/Vomiting Status: No Signs/Symptoms: Interventions: Assessment: Comments: toleratingPO : Last void: at 1900 Contact Name: Beth Contact Number: [phone] Family contacted: Yes Comment:updated family Belongings:none in [...] in the provider note. Sandra Valle MD [employer] ransfer Note - Arnie Busby ANP - 06/11/2018 3:19 PM PDT Call from Dr. Eric Yen, [facility] Pt with hx of CHF with significant fluid retention, right knee replacement, chronic leg ulc ers has infected total knee. Presented to clinic today with right knee swelling and pain. Right knee aspirate today: 79k white cells Markedly elevated CRP and sed rate Temp 99.4, vitals stable and normal Spoke with [facility] orthopedic surgeon Dr. Leon who advised transfer to [facility] ED Pt coming now via POV [facility] Rita Alex - 06/11/2018 3:19 PM PDTPt with post procedure infection, R total knee. Connected ref with ROCAEL Sanders. [facility] Rita Barker - 06/11/2018 2:09 PM PDTRef previously [facility] ortho Dr. Maral Leon who advised PT to come to [facility] ED. Advised Dr. Yen to call [...] organism | | | | | | (FORMERLY [facility]) | | + +--------+ + + + [...] organism | | | | | | ([facility]ERLY [facility]) | | + +--------+ + + + [...] organism | | | | | | ([facility]LY [facility]) | | + +--------+ + + + [...] - [facility] | [address] | [place], [place] | | | KIERRA POINT OF CARE | [address] | [address] | | | TESTS | | | [...] [facility] | [address] | [place] [address] | | | SERVICES, CORE | PARK [...] | | | LABORATORY | | | ENGLISH | | | SERVICES, | | | [...] the MDRD equation recommended by the | [facility] | | National Kidney Disease Education [...] | + + + + + | [facility] | [address] | [place] [address] | | | SERVICES, CORE | MARY [...] [facility] | [address] | [place], [place] | | | OPHELIA LOZADA OF CARE | [facility] | [address] | | | TESTS | | | [...] [facility] | [address] | [place], [place] | | | KIERRA POINT OF CARE | [address] | [address] | | | TESTS | | | | + + + + + X-RAY PORTABLE CHEST 1 VIEW (06/16/2018 4:29 PM PDT) + + | Specimen | + + | | + + + + + | Narrative | Performed At | + + + | EXAM: MO CHEST 1 VIEW HISTORY: PICC placement. Prosthetic [...] Note | + + | Service Account, [employer] - 06/16/2018 4:44 PM PDT EXAM: MO CHEST 1 | | VIEW HISTORY: PICC [...] necessary, edited the report. I agree with [facility] report as now presented. | | | [...] draws Procedure location: | | | Unit:9 [facility] Room: 14 Providers: Attending name: Attending | | | physically present: No PICC Nurse name: Frances Fair FITNESS SALES ASSOCIATE | | | VAT Assisted by Christina March RN BSN VAT Pre-Procedure Consent: | | | written consent obtained Consent given by: Patient Patient | | | identity confirmed per protocol: Yes Team Pause: Immediatly prior to | | | the procedure a pause per protocol was called. A pause verifies | | | correct patient, procedure, equipment, manager technical support and site/side | | | marked [...] | area Basilic vein. Catheter lot number: [id number] with a length of 55 | | [...] - [facility] | [address] | [place], [place] | | | KIERRA POINT OF CARE | [address] | [address] | | | TESTS | | | [...] [facility] | [address] | [place] [address] | | | SERVICES, CORE | PARK [...] | | | LABORATORY | | | ENGLISH | | | SERVICES, | | | [...] | + + + + + | [facility] | [address] | [place] [address] | | | SERVICES, KAREEM | MARY [...] (H) | 70 - 99 mg/dL | [facility] - | | | GLUCOSE, | [...] [facility] | [address] | [place], [place] | | | OPHELIA LOZADA OF FUAD | [facility] | [address] | | | TESTS | | | [...] [place] | [address] | [place], [place] | | | OPHELIA LOZADA OF FUAD | [address] | [address] | | | TESTS | | | [...] [facility] | [address] | [place], [place] | | | KIERRA [place] OF [facility] | [facility] | [address] | | | TESTS | | | [...] | + + + + + | [facility] | [address] | [place] [address] | | | SERVICES, CORE | MARY [...] | | | LABORATORY | | | ENGLISH | | | SERVICES, | | | [...] | + + + + + | [facility] | [address] | [place] [address] | | | SERVICES, CORE | PARK [...] | + + + + + | [facility] | [address] | [place] [address] | | | SERVICES, CORE | PARK [...] [facility] | [address] | [place] [address] | | | KAREEM FINCH | MARY [...] [facility] | [address] | [place] [address] | | | SERVICES, CORE | PARK [...] | + + + + + | [facility] | [address] | [place] [address] | | | SERVICES, CORE | MARY [...] - DARSHANA | [address] | [place], [place] | | | [place] POINT OF [facility] | [address] | [address] | | | TESTS | | | [...] | | | LABORATORY | | | ENGLISH | | | SERVICES, | | | [...] is appropriate. | LABORATORY | | Page [phone] or call [phone] with questions. Thank you. GFR is | [...] | + + + + + | [facility] | [address] | [place] [address] | | | SERVICES, CORE | PARK [...] | + + + + + | [facility] | [address] | [place] [address] | | | SERVICES, CORE | PARK [...] is appropriate. | LABORATORY | | Page [phone] or call [phone] with questions. Thank you. | SERVICES, CORE | + + + + + + + + | Performing | Address | City/State/Zipcode | Phone Number | | Organization | | | | + + + + + | [facility] | [address] | [place] [address] | | | SERVICES, CORE | MARY [...] (H) | 70 - 99 mg/dL | [facility] - | | | GLUCOSE, | [...] [place] | [address] | [place], [place] | | | OPHELIA LOZADA OF CARE | [address] | [address] | | | TESTS | | | [...] [facility] | [address] | [place], [place] | | | OPHELIA LOZADA OF CARE | [address] | [address] | | | TESTS | | | [...] [facility] | [address] | [place] [address] | | | SERVICES, CORE | PARK [...] | | | LABORATORY | | | ENGLISH | | | SERVICES, | | | [...] | + + + + + | [facility] | [address] | [place] [address] | | | SERVICES, CORE | PARK [...] [place] | [address] | [place], [place] | | | OPHELIA LOZADA OF FUAD | [facility] | [address] | | | TESTS | | | [...] [facility] | [address] | [place], [place] | | | OPHELIA LOZADA OF CARE | [facility] | [address] | | | TESTS | | | [...] (H) | 70 - 99 mg/dL | [facility] - | | | GLUCOSE, | [...] [place] | [address] | [place], [place] | | | OPHELIA LOZADA OF CARE | [address] | [address] | | | TESTS | | | [...] + + | ECG | Borderline prolonged MO | | [facility] | | | [...] DEPT OF | [address] | [place], [place] | | | CARDIOLOGY | [address] | [address] | | + + + + + [...] + + + | [facility] | [address] | [place], [place] | | | KIERRA POINT OF CARE | [address] | [address] | | | TESTS | | | [...] | + + + + + | [facility] | [address] | [place] [address] | | | SERVICES, CORE | PARK [...] | | | LABORATORY | | | ENGLISH | | | SERVICES, | | | [...] | + + + + + | [facility] | [address] | [place] [address] | | | SERVICES, CORE | [address] | | | + + + + + MAGNESIUM, PLASMA (06/12/2018 10:24 PM PDT) + +-------+ + + + | Component | Value | Ref Range | Performed | Pathologist | | | | | At | Signature | + +-------+ + + + | MAGNESIUM,P | 1.8 | 1.6 - 2.6 mg/dL | [facility] | | | LASMA | | | [...] [facility] | [address] | [place] [address] | | | SERVICES, KAREEM | MARY [...] | | | LABORATORY | | | ENGLISH | | | SERVICES, | | | [...] the MDRD equation recommended by the | [facility] | | National Kidney Disease Education Program. [...] [facility] | [address] | [place] [address] | | | SERVICES, CORE | MARY [...] | + + + + + | [facility] | [address] | [place] [address] | | | SERVICES, | [address] [...] [facility] | [address] | [place] [address] | | | SERVICES, | [address] [...] [facility] | [address] | [place] [address] | | | SERVICES, CORE | PARK [...] + | [facility] | [address] | [place] [address] | | | SERVICES, | [address] [...] | + + + + + | [facility] | [address] | [place] [address] | | | KAREEM FINCH | MARY [...] [facility] | [address] | [place], [place] | | | KIERRA POINT OF CARE | [address] | [address] | | | TESTS | | | [...] | | | LABORATORY | | | ENGLISH | | | SERVICES, | | | [...] [facility] | [address] | [place] [address] | | | SERVICES, CORE | PARK [...] | + + + + + | [facility] | [address] | [place] [address] | | | SERVICES, KAREEM | PARK [...] + | [facility] | [address] | [place], [place] | | | KIERRA [place] OF [facility] | [address] | [address] | | | TESTS | | | | + + + + + PROCEDURE NOTE (06/12/2018 2:57 PM PDT) + + + | Narrative | Performed At | + + + | Ghassan Sherman MD 06/17/2018 2:15 PM Date of Service: | | | 08/01/2015 Attending Surgeon: Ghassan Sherman MD | | | Materials Engineering Technician(s): mesfin thompson MD Preoperative Diagnosis: 1. 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 Postoperative Diagnosis: | | | same Procedures Performed: 1. Right knee arthrotomy with | | | drainage for infection and polyethylene exchange 2. Application | | | TINO disposible negative pressure wound therapy dressing right knee | | | [id number] Anesthesia: General endotracheal anesthesia. | | | Implants: excahgned alisha triathalon poly size 15, 13mm EBL: 50 | | | Complications: None Specimens: 6 cultures, 1 path Indication | | | For Procedure: Solo Alves was transferred to [facility] for sepsis | | | after [...] | | stands. Ghassan Sherman MD, MPH Hand Umbrella Tipper, Dept. of | | | Orthopaedics [facility] [address] | | | [address]. [address] [place] [phone] | | | [email or web address] | | + + + CAPILLARY BLOOD GLUCOSE (NO CHG), POC (06/12/2018 2:42 PM PDT) + +---------+ + + + | Component | Value | Ref Range | Performed | Pathologist | | | | | At | Signature | + +---------+ + + + | BLOOD | 134 (H) | 70 - 99 mg/dL | [facility] - | | | GLUCOSE, | [...] [facility] | [address] | [place], [place] | | | OPHELIA LOZADA OF CARE | [address] | [address] | | | TESTS | | | [...] [facility] | [address] | [place], [place] | | | OPHELIA LOZADA OF FUAD | [address] | [address] | | | TESTS | | | [...] Propionibacterium due to growth of other | [facility] | | organsims. Gram Stain: No squamous epithelial cells Moderate | | | polymorphonuclear cells No organisms seen | | + + + + + + + + | Performing | Address | City/State/Zipcode | Phone Number | | Organization | | | | + + + + + | [facility] | [address] | [place] [address] | | | [place] | | | [...] - | | | | | | [facility] | | + + + + [...] Propionibacterium due to growth of other | [place] | | organsims. Gram Stain: No squamous epithelial cells No | | | polymorphonuclear cells No organisms seen | | + + + + + + + + | Performing | Address | City/State/Zipcode | Phone Number | | Organization | | | | + + + + + | [facility] | [address] | [place] [address] | | | [place] | | | [...] - | | | | | | [place] | | + + + + + [...] + | [facility] - | [address] | [place] [address] | | | [place] | | | | + + + [...] - | | | | | | [facility] | | + + + + [...] | + + + + + | [facility] - | [address] | [place] [address] | | | [place] | | | | + + + [...] | + + + + + | [facility] - | [address] | [place] [address] | | | [place] | | | | + + + [...] | | | | | | number [phone]. Knee, | | | | | | [...] | + + + + + | [facility] | [address] | [place] [address] | | | PATHOLOGY | [address] [...] | + + + + + | [facility] - | [address] | [place] [address] | | | [place] | | | | + + + [...] [place] | [address] | [place], [place] | | | OPHELIA LOZADA OF CARE | [address] | [address] | | | TESTS | | | [...] [facility] | [address] | [place], [place] | | | KIERRA POINT OF CARE | [address] | [address] | | | TESTS | | | [...] + + | [facility] | [address] [facility] [address] [address] | [place], [place] | | | KIERRA POINT OF [facility] | [address] | [address] | | | TESTS | | | [...] [facility] | [address] | [place] [address] | | | SERVICES, KAREEM | PARK [...] | + + + + + | [facility] | [address] | [place] [address] | | | SERVICES, CORE | MARY [...] | + + + + + | [facility] | [address] | [place] [address] | | | SERVICES, CORE | MARY [...] [facility] | [address] | [place] [address] | | | SERVICES, CORE | PARK [...] | + + + + + | [facility] | [address] | [place] [address] | | | SERVICES, | [address] | | | | TRANSFUSION MEDICINE [...] | + + + + + | [facility] | [address] | [place] [address] | | | SERVICES, CORE | MARY [...] | | | LABORATORY | | | ENGLISH | | | SERVICES, | | | [...] | + + + + + | [facility] [employer] [facility] | [address] | [place] [address] | | | SERVICES, CORE | MARY [...] | + + + + + | [facility] | [address] | [place] [address] | | | KAREEM FINCH | MARY [...] | + + + + + | [facility] | [address] | [place] [address] | | | SERVICES, KAREEM | MARY [...] | + + + + + | [facility] | [address] | [place] [address] | | | SERVICES, CORE | PARK [...] | + + + + + | [facility] | [address] | [place] [address] | | | SERVICES, CORE | [address] | | | + + + + + ED INFORMATION EXCHANGE (06/11/2018 6:04 PM PDT) + + | Specimen | + + | | + + + + + | Narrative | Performed At | + + + | [id number] This patient has registered at the [place] | [facility] | | [facility] For more | MEDICAL | | information visit: | TECHNOLOGIES | | [email or web address] | | | 35ffec Security Events No [...] Chief Complaint Aug | | | 2017 [facility] [place] Emergency | | | Emergency 10,800. REF Recent Inpatient Visit | | | Summary No recorded inpatient visits. E.D. Visit Count (12 mo.) | | | Facility Visits [facility] 1 Total 1 | | | [...] | | facilities for additional information. 2018 [employer] | | | [facility] - [place], [place] - | | | [email or web address] | | + + + + + | Procedure Note | + + | Service Account, Rtf Results Inbound - 06/11/2018 6:06 PM PDT Formatting of this | | note might be different from the original.DANIEL?NOTIFICATION?06/11/2018 18:04?MAXWELL, | | JÚNIOR? patient has registered at the [facility] | | [place] [facility] For more information visit: | | [email or web address] Security | | EventsNo recent Security Events currently on fileED Care GuidelinesThere are currently | | no ED Care Guidelines in DANIEL for this patient. Please check your facility's medical | | records system.Recent Emergency Department Visit SummaryAdmit Date Facility [facility] | | Type Major Type Diagnoses or Chief Complaint Jun 11, 2018 [facility] | | [facility] [place] Emergency Emergency 10,800. REF Recent Inpatient Visit | | SummaryNo recorded inpatient visits. E.D. Visit Count (12 mo.)Facility Visits [place] | | [facility] 1 Total 1 Note: Visits indicate total [...] aforementioned facilities for additional information. ? 2018 [employer] | | [facility] - [place], [place] - [email or web address] | |Facility Visits | |[facility] 1 | |Total 1 | |Note: [...] facilities for additional information. | |? 2018 [email or web address] 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
--- OUTSIDE RECORDS SUMMARY | ~2020-07-26 | XMS | Encounter Summary ---
Demographics + + + | Address | [address] | | | [place] [address] | + + + | Home Phone | | + + + | Preferred Language | Unknown | + + + | Marital Status | Unknown | + + + | Anglican Affiliation | PRO | + + + | Race | White | + + + | Ethnic Group | Not or | + + + Author + + + | Author | [facility] | + + + | Organization | [facility] | + + + | Address | Unknown | + + + | Phone | Unavailable | + + + Support + + +---------+ + | Name | Relationship | Address | Phone | + + +---------+ + | Beth Mas | ECON | Unknown | | + + +---------+ + Care Team Providers + +------+ + | Care Reinsurance Accountant Name | Role | Phone | + [...] | | | | Loop Physician's | [place], [place] | | | | | [place], [facility] floor | [address] | | | | | [place], [place] | [phone] | | | | | [address] | | | | | | [phone] | | | +--------+--------+ + + + [...]
--- OUTSIDE RECORDS SUMMARY | ~2020-07-26 | XMS | Encounter Summary ---
Demographics + + + | Address | [address] | | | [place] [address] | + + + | Home Phone | | + + + | Preferred Language | Unknown | + + + | Marital Status | Unknown | + + + | Christian Affiliation | PRO | + + + [...] Team Providers + +------+ + | Care Business Continuity Manager Name | Role | Phone | + +------+ + | Gilberto Estrada MD | PCP | | + +------+ + Encounter Details +--------+ + + + + | Date | Type | Department | Care Team | Description | +--------+ + + + + | 07/14/ | Hospital | Radiology/Imaging | Sandoval Hyde, | | | 2017 | Encounter | at [facility] | [address] | | | | | [address] | [place], [place] | | | | | [facility] [address] | [address] | | | | | [place], [place] | [phone] | | | | | [address] | | | | | | [phone] | | | +--------+ + + + [...] | | 0 | | | | [id number] | mouth once daily. | | | [...]
--- OUTSIDE RECORDS SUMMARY | ~2020-07-26 | XMS | Encounter Summary ---
Demographics + + + | Address | [address] | | | [place] [address] | + + + | Home Phone [...] + + + | Author | [facility] | + + + | Organization | [facility] | + + + | Address | Unknown | + + + | Phone | Unavailable | + + + Support + + +---------+ + | Name | Relationship | Address | Phone | + + +---------+ + | Beth Mas | ECON | Unknown | | + + +---------+ + Care Team Providers + +------+ + | Care Bindery Production Manager Name | Role | Phone | [...] pain, | | 2018 | Visit | [facility] [address] | MD [address] | unspecified | | | | [address] | [place], [place] | chronicity (Primary | | | | [address] | [address] | Dx) | | | | [place], [place] | [phone] | | | | | [address] | | | | | | [phone] | | | +--------+---------+ + + + [...] might be different fr om the original. [facility] Orth[facility] Tra[facility] Today's date: 08/18/18 [...] as listed. GHASSAN SHERMAN MD ORTHOPAEDICS AT [address] [place] [phone] Orders Placed This Encounter X-RAY KNEE 2 [...]
--- OUTSIDE RECORDS SUMMARY | ~2020-07-26 | XMS | Encounter Summary ---
Demographics + + + | Address | [address] | | | [place] [address] | + + + | Home Phone [...] Providers + +------+ + | Care Service Worker Name | Role | Phone | [...] | | | | | | | RI | | | | | | | ESOPHAGOGAST | | | | | | | RODUODENOSCO | | | | | | | PY TRANSORAL | | | | | | | DIAGNOSTIC | | | | | | | RI EGD | | | | | | | BALLOON | | | | | | | DILATION | | | | | | | ESOPHAGUS | | | | | | | <30 MM DIAM | | | | | | | [place] | | | | | | | [...] | | | | | [address] | [place] | | | | | [place] | [address] | | | | | [address] | | | | | | [phone] | | | +--------+ + + + [...] 1300 by | | eral | Hand; vzox-yyl-mhgdhe catheter | Fred Mendoza RN | Fred Mendoza RN | [...] EVALUATION Duane Mas 77 y.o. male 1940 [id number] Procedure(s) EGD with Dilation (N/A Mouth) Cooperates? [...] SpO2: 93% 95% Electronically signed by Ld Corado MD 07/31/2017 12:45 [facility] Cor[facility] MD at 02/2017 12:45 PM PDTAnesthesia Preprocedure Evaluation - Ld Corado MD - 07/30/2017 11: 41 AM PDT ANESTHESIA PREANESTHESIA EVALUATION Duane Mas 77 y.o. male 1940 [id number] Procedure(s): EGD with Dilation (N/A Mouth) Medical [...]
--- OUTSIDE RECORDS SUMMARY | ~2020-07-26 | XMS | Encounter Summary ---
Demographics + + + | Address | [address] | | | [place] [address] | + + + | Home Phone | | + + + | Preferred Language | Unknown | + + + | Marital Status | | + + + | Pentecostalism Affiliation | 1077 | + + + [...] Team Providers + +------+ + | Care Forge Operator Name | Role | Phone | + +------+ + PCP | Unavailable | + +------+ + Encounter Details +--------+ + + + + | Date | Type | Department | Care Team | Description | +--------+ + + + + | 10/08/ | Hospital | [facility] | Olaf Nicole | | | 1998 - | Encounter | [facility] | MD [address] | | | | | CARDIAC TELEMETRY | [address] | | | 10/09/ | | [address] | [place] [address] | | | 2000 | | [place] | [phone] | | | | | [address] | | | | | | [phone] | | | +--------+ + + + [...]
--- OUTSIDE RECORDS SUMMARY | ~2020-07-26 | XMS | Encounter Summary ---
Demographics + + + | Address | [address] | | | [place] [address] | + + + | Home Phone [...] Author + + + | Author | [facility] | + + + | Organization | [facility] | + + + | Address | Unknown | + + + | Phone | Unavailable | + + + Support + + +---------+ + | Name | Relationship | Address | Phone | + + +---------+ + | Beth Mas | ECON | Unknown | | + + +---------+ + Care Team Providers + +------+ + | Care Sports Health Club Membership Advisors Name | Role | Phone | + +------+ + | Gilberto Estrada MD | PCP | | + +------+ + Reason for Visit + +--------+ + | Reason | Onset | Comments | | | Date | | + +--------+ + | Care Coordination | 07/23/ | | | | 2018 | | + +--------+ + Encounter Details +--------+ + + + + | Date | Type | Department | Care Team | Description | +--------+ + + + + | 07/23/ | Telephone | Infectious | Abril Shields, | Care Coordination | | 2018 | | [facility] at [facility] | MD [address] | | | | | [address] [place] | [address] | | | | | [address] [facility] | [place], [place] | | | | | [place], 3rd floor | [address] | | | | | [place], [place] | [phone] | | | | | [address] | | | | | | [phone] | | | +--------+ + + + [...] Telephone Encounter - Abril Shields MD - 07/23/2018 7:35 PM PDTSpoke with pt's PCP, Zeb Estrada re infection at superior aspect of pt's knee incision. A small amount of purulenc e was drained from this area and has now grown Pseudomonas (fluoroquinolone susceptible). He was started on cipro which he has been taking x 3d now. Unknown if erythema and drainage of his incision has resolved. Recommended continuation of ciprofloxacin (renally-dosed) with f ollow-up visit to assess for resolution of sxs prior to stopping therapy. Recommend continua tion of cipro until sxs are clinically resolved. If sxs are persistent or recur following co mpletion of cipro, I would be concerned about the possibility of deeper infection and ortho should be notified. d ocumented in this encounter Plan of Treatment Not on filedocumented as of this encounter Visit Diagnoses Not on filedocumented in this encounter"
--- OUTSIDE RECORDS SUMMARY | ~2020-07-26 | XMS | Encounter Summary ---
Demographics + + + | Address | [address] | | | [place] [address] | + + + | Home Phone | | + + + | Preferred Language | Unknown | + + + | Marital Status | | + + + | Denominational Affiliation | 1077 | + + + [...] Team Providers + +------+ + | Care Foreman/Project Manager Name | Role | Phone | + +------+ + | Erin Forrester MD | PCP | | + +------+ + Encounter Details +--------+ + + + + | Date | Type | Department | Care Team | Description | +--------+ + + + + | 01/12/ | Orders Only | [facility] | Conversion | | | 2017 | | NEPHROLOGY [place] | Transaction, | | | | | [address] | Provider Unknown | | | | | [address] | [phone] | | | | | [address] | | | | | | [phone] | | | +--------+ + + + [...] - 1.030 | EXTERNAL | | | [place], | | | LAB | | | [...]
--- OUTSIDE RECORDS SUMMARY | ~2020-07-26 | XMS | Encounter Summary ---
Demographics + + + | Address | [address] | | | [place] [address] | + + + | Home Phone | | + + + | Preferred Language | Unknown | + + + | Marital Status | Unknown | + + + | Anabaptism Affiliation | PRO | + + + | Race | White | + + + | Ethnic Group | Not or | + + + Author + + + | Author | [facility] | + + + | Organization | [facility] | + + + | Address | Unknown | + + + | Phone | Unavailable | + + + Support + + +---------+ + | Name | Relationship | Address | Phone | + + +---------+ + | Beth Mas | ECON | Unknown | | + + +---------+ + Care Team Providers + +------+ + | Care Alternative Education Teacher Name | Role | Phone | + [...] | | | | Loop [facility] | [place], [place] | | | | | Pavilion, 3rd floor | [address] | | | | | [place], [place] | [phone] | | | | | [address] | | | | | | [phone] | | | +--------+ + + + [...] 07/27/2018 9:17 AM PDTSpoke with Cierra fernando [facility] [phone] and she confirmed that the patient's PICC line is being pulled t his morning. I will call back to for confirmation this afternoon. documented in this encounter Plan of Treatment Not on filedocumented as of this encounter Visit Diagnoses Not on filedocumented in this encounter"
--- OUTSIDE RECORDS SUMMARY | ~2020-07-26 | XMS | Encounter Summary ---
Demographics + + + | Address | [address] | | | [place] [address] | + + + | Home Phone [...] + + + | Author | [facility] | | | and [place] | + + + | Organization | [facility] | | [...] Team Providers + +------+ + | Care Customer Quality Specialist Name | Role | Phone | + +------+ + | Erin Forrester MD | PCP | | + +------+ + Encounter Details +--------+ + + + + | Date | Type | Department | Care Team | Description | +--------+ + + + + | 09/12/ | Orders Only | [facility] | Robel Ricci | | | 2015 | | CARDIOLOGY AARON | MD [address] | | | | | [address] | [address] | | | | | [place] | [place] [address] | | | | | [address] | [phone] | | | | | [phone] | | | +--------+ + + + [...] | | | | | by [facility] Read Only, | | | | | | [facility]an ([id number]), | | | | | | managing editor Demetri Norton | | | | | | (253) on 10/08/2016 | | | | | | 8:28:04 AM | | | | + + + + + + + + | Specimen | + + | | + + + + + | Narrative | Performed At | + + + | Historically converted procedure from [facility] environment | EXTERNAL LAB | + + + + +---------+ + + | Performing | Address | City/State/Zipcode | Phone Number | | Organization | | | | + +---------+ + + | EXTERNAL LAB | | | | + +---------+ + + documented in this encounter Visit Diagnoses Not on filedocumented in this encounter"
--- OUTSIDE RECORDS SUMMARY | ~2020-07-26 | XMS | Encounter Summary ---
Demographics + + + | Address | [address] | | | [place] [address] | + + + | Home Phone | | + + + | Preferred Language | Unknown | + + + | Marital Status | | + + + | Anglican Affiliation | 1077 | + + + [...] Team Providers + +------+ + | Care Content Director Name | Role | Phone | + +------+ + | Erin Forrester MD | PCP | | + +------+ + Encounter Details +--------+ + + + + | Date | Type | Department | Care Team | Description | +--------+ + + + + | 05/19/ | Orders Only | [facility] | Provider, | Mixed | | 2019 | | SYSTEM GENERIC OP | [address] | hyperlipidemia; Type | | | | CONVERSION [address] | [address] | 2 diabetes mellitus | | | | [address] [place], [place] | [place] [address] | without | | | | [address] | | complications (HCC); | | | | [phone] | | Chronic kidney | | | | | | disease, stage III | | | | | | (moderate) (HCC); | | | | | | Localized edema; | | | | | | Secondary | | | | | | hyperparathyroidism | | | | | | of renal origin | | | | | | (HCC); Essential | | | | | | (primary) | | | | | | hypertension; | | | | | | Personal history of | | | | | | other diseases of | | | | | | the musculoskeletal | | | | | | system and | | | | | | connective tissue | +--------+ + + + + Social [...] | +--------+ + + + + + +------+--------+ + + | Name | Type | Priori | Associated Diagnoses | Order Schedule | | | | ty | | | + +------+--------+ + + | Renal Function Panel | Lab | Routin | Mixed | Expected: | | | | e | hyperlipidemia Type | 06/01/2019, Expires: | | | | | 2 diabetes mellitus | 03/09/2020 | | | | | without | | | | | | complications (HCC) | | | | | | Chronic kidney | | | | | | disease, stage III | | | | | | (moderate) (HCC) | | | | | | Localized edema | | | | | | Secondary | | | | | | hyperparathyroidism | | | | | | of renal origin | | | | | | (HCC) Essential | | | | | | (primary) | | | | | | hypertension | | | | | | Personal history of | | | | | | other diseases of | | | | | | the musculoskeletal | | | | | | system and | | | | | | connective tissue | | + +------+--------+ + + | CBC with | Lab | Routin | Mixed | Expected: | | Differential | | e | hyperlipidemia Type | 06/01/2019, Expires: | | | | | 2 diabetes mellitus | 03/09/2020 | | | | | without | | | | | | complications (HCC) | | | | | | Chronic kidney | | | | | | disease, stage III | | | | | | (moderate) (HCC) | | | | | | Localized edema | | | | | | Secondary | | | | | | hyperparathyroidism | | | | | | of renal origin | | | | | | (HCC) Essential | | | | | | (primary) | | | | | | hypertension | | | | | | Personal history of | | | | | | other diseases of | | | | | | the musculoskeletal | | | | | | system and | | | | | | connective tissue | | + +------+--------+ + + | Parathyroid Hormone, | Lab | Routin | Mixed | Expected: | | Intact | | e | hyperlipidemia Type | 06/01/2019, Expires: | | | | | 2 diabetes mellitus | 03/09/2020 | | | | | without | | | | | | complications (HCC) | | | | | | Chronic kidney | | | | | | disease, stage III | | | | | | (moderate) (HCC) | | | | | | Localized edema | | | | | | Secondary | | | | | | hyperparathyroidism | | | | | | of renal origin | | | | | | (HCC) Essential | | | | | | (primary) | | | | | | hypertension | | | | | | Personal history of | | | | | | other diseases of | | | | | | the musculoskeletal | | | | | | system and | | | | | | connective tissue | | + +------+--------+ + + | Protein/Creatinine | Lab | Routin | Mixed | Expected: | | Ratio, Urine | | e | hyperlipidemia Type | 06/01/2019, Expires: | | | | | 2 diabetes mellitus | 03/09/2020 | | | | | without | | | | | | complications (HCC) | | | | | | Chronic kidney | | | | | | disease, stage III | | | | | | (moderate) (HCC) | | | | | | Localized edema | | | | | | Secondary | | | | | | hyperparathyroidism | | | | | | of renal origin | | | | | | (HCC) Essential | | | | | | (primary) | | | | | | hypertension | | | | | | Personal history of | | | | | | other diseases of | | | | | | the musculoskeletal | | | | | | system and | | | | | | connective tissue | | + +------+--------+ + + documented as of this encounter Visit Diagnoses + + | Diagnosis | + + | Mixed hyperlipidemia | + + | 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
--- OUTSIDE RECORDS SUMMARY | ~2020-07-26 | XMS | Encounter Summary ---
Demographics + + + | Address | [address] | | | [place] [address] | + + + | Home Phone | | + + + | Preferred Language | Unknown | + + + | Marital Status | | + + + | Muslim Affiliation | 1077 | + + + | Race | White | + + + | Ethnic Group | Not or | + + + Author + + + | Author | [facility] | | | and [place] | + + + | Organization | [facility] | | | and [...] Team Providers + +------+ + | Care Grocery Clerk Name | Role | Phone | + +------+ + | Erin Forrester MD | PCP | | + +------+ + Encounter Details +--------+ + + + + | Date | Type | Department | Care Team | Description | +--------+ + + + + | 10/09/ | Orders Only | [facility] | Robel Ricci | | | 2014 | | CARDIOLOGY [place]ARON | [address] | | | | | [place] [address] | [address] | | | | | [address] | [place] [address] | | | | | [address] | [phone] | | | | | [phone] | | | +--------+ + + + [...] | with evidence of 1-49% stenosis. Right HAND CROCHETER: The right common femoral | | | [...] patent with evidence of 1-49% stenosis. Left HAND CROCHETER: | | | The left common femoral [...] GOPAL PS: 82.62 cm/s | | | HAND CROCHETER AC: 28 deg HAND CROCHETER AC: 39 deg HAND CROCHETER PS: 82.56 cm/s HAND CROCHETER PS: | | | 91.14 cm/s NADIYA [...] | | cm/s Pop PS: 66.08 cm/s DENTAL AMALGAM PROCESSOR AC: 60 deg DENTAL AMALGAM PROCESSOR AC: 54 deg | | | DENTAL AMALGAM PROCESSOR PS: 104.11 cm/s DENTAL AMALGAM PROCESSOR PS: 70.22 cm/s SFA AC: 60 deg [...] AO | | | mid-dist: 1.83 cm Master Baker: MANDEEP Authenticated by: | | | Betina Falk MD Report Date/Time: -- | | | [id number] | | + + + + + [...] with evidence of 1-49% | | stenosis.Right HAND CROCHETER: The right common femoral artery is patent [...] patent with evidence of 1-49% stenosis. Left HAND CROCHETER: The | | left common femoral artery [...] | | 0.92 cmAO mid-dist: 1.83 cm Master Baker: FEMIuthenticated by: Betina Falk | | MDReport Date/Time: -- [id number] IMPRESSION: 1. This was a technically | [...] medial calcification of the trifurcation vessels. | |HAND CROCHETER AC: 39 deg | |HAND CROCHETER PS: 82.56 cm/s | |HAND CROCHETER PS: 91.14 cm/s | |NADIYA AC: 60 [...] cm/s | |Pop PS: 66.08 cm/s | |DENTAL AMALGAM PROCESSOR AC: 60 deg | |DENTAL AMALGAM PROCESSOR AC: 54 deg | |DENTAL AMALGAM PROCESSOR PS: 104.11 cm/s | |DENTAL AMALGAM PROCESSOR PS: 70.22 cm/s | |SFA AC: 60 [...] |AO mid-dist: 1.83 cm | | | |Master Baker: MANDEEP | |Authenticated by: Betina Falk MD | |Report Date/Time: -- [id number] | | | |IMPRESSION: | |1. This [...]
--- OUTSIDE RECORDS SUMMARY | ~2020-07-26 | XMS | Encounter Summary ---
Demographics + + + | Address | [address] | | | [place] [address] | + + + | Home Phone | | + + + | Preferred Language | Unknown | + + + | Marital Status | | + + + | Bahai Affiliation | 1077 | + + + | Race | White | + + + | Ethnic Group | Not or | + + + Author + + + | Author | [facility] | | | and [place] | + + + | Organization | [facility] | | [...] Providers + +------+ + | Care Customer Retention Representative Name | Role | Phone | [...] + + | 12/08/ | Telephone | [facility] | Kristie De Los Santos ANP | Device Check | | 2020 | | CARDIOLOGY [place] | [address] | | | | | [address] | [place], [place] | | | | | [place], [place] | [address] | | | | | [address] | | | | | | [phone] | | | +--------+ + + + [...] 2019. Device: Medtronic pacemaker [facility] Plan of Treatment +--------+ + + [...]
--- OUTSIDE RECORDS SUMMARY | ~2020-07-26 | XMS | Encounter Summary ---
Demographics + + + | Address | [address] | | | [place] [address] | + + + | Home Phone | | + + + | Preferred Language | Unknown | + + + | Marital Status | | + + + | Hoahaoism Affiliation | 1077 | + + + | Race | White | + + + | Ethnic Group | Not or | + + + Author + + + | Author | [facility] | | | and [place] | + + + | Organization | [facility] | | | and [...] Team Providers + +------+ + | Care Fitness Management Director Name | Role | Phone | + +------+ + PCP | Unavailable | + +------+ + Encounter Details +--------+ + + + + | Date | Type | Department | Care Team | Description | +--------+ + + + + | 09/17/ | Hospital | [facility] | Zay Francis, | | | 1996 - | Encounter | [facility]ART MED CTR | [address] | | | | | CARDIAC TELEMETRY | [address] [place] | | | 09/21/ | | [address] | [address] | | | 1998 | | [place] | [phone] | | | | | [address] | | | | | | [phone] | | | +--------+ + + + [...]
--- OUTSIDE RECORDS SUMMARY | ~2020-07-26 | XMS | Encounter Summary ---
Demographics + + + | Address | [address] | | | [place] [address] | + + + | Home Phone [...] Team Providers + +------+ + | Care Press Washer Name | Role | Phone | + [...] | | | [address] | [facility] | | | | | Loop [facility] | [place], [place] | | | | | [place], [address] [place] [address] | [address] | | | | | [place], [place] | [phone] | | | | | [address] | | | | | | [phone] | | | +--------+ + + + [...] received orders. Confirmed with RN KARLA at [facility] that they will pull [...]
--- OUTSIDE RECORDS SUMMARY | ~2020-07-26 | XMS | Encounter Summary ---
Demographics + + + | Address | [address] | | | [place] [address] | + + + | Home Phone | | + + + | Preferred Language | Unknown | + + + | Marital Status | Unknown | + + + | Alevism Affiliation | PRO | + + + | Race | White | + + + | Ethnic Group | Not or | + + + Author + + + | Author | [facility] | + + + | Organization | [facility] | + + + | Address | Unknown | + + + | Phone | Unavailable | + + + Support + + +---------+ + | Name | Relationship | Address | Phone | + + +---------+ + | Beth Mas | ECON | Unknown | | + + +---------+ + Care Team Providers + +------+ + | Care Community Planning Technician Name | Role | Phone | + +------+ + PCP | Unavailable | + +------+ + Encounter Details +--------+ + + + + | Date | Type | Department | Care Team | Description | +--------+ + + + + | 12/30/ | Hospital | Dermatopathology | | | | 2016 | Encounter | [address] | | | | | | Mailcode: CH16D | | | | | | [facility] | | | | | | and Healing, | | | | | | Building [address], [address]th | | | | | | Floor [place], [place] | | | | | | [address] | | | | | | [phone] | | | +--------+ + + + [...] | + +--------+ + + + | IMMUNOFLUORESCENCE | Routin | 12/30/2016 | | Results for this | | STUDY | e | | | procedure are in the | | | | | | results section. | + +--------+ + + + documented in this encounter Results IMMUNOFLUORESCENCE STUDY (12/30/2016) + + + + + + | Component | Value | Ref Range | Performed | Pathologist | | | | | At | Signature | + + + + + + | IMMUNOFLUOR | SOURCE OF SPECIMEN:A Rt. | | [facility] | | | [facility]ENCE | thigh, punch Direct | | DERMATOPATH | | | STUDY | Immunofluorescence | | OLOGY | | | | CLINICAL INFORMATION:On | | | | | | December 30, 2016, a punch | | | | | | biopsy was taken from | | | | | | perilesional skin of | | | | | | theright thigh for | | | | | | direct | | | | | | immunofluorescence | | | | | | studies from a patient | | | | | | with aseveral month | | | | | | history of a pruritic | | | | | | blistering disease with | | | | | | prior | | | | | | histologysuggestive of | | | | | | bullous pemphigoid, | | | | | | scabies, or a drug | | | | | | eruption. TISSUE | | | | | | PROCESSING:On January 02, | | | | | | 2016, a 3 x 7mm oh and | | | | | | white cylinder of tissue | | | | | | was receivedin direct | | | | | | immunofluorescence | | | | | | holding solution. | | | | | | After washing, the | | | | | | tissuewas frozen in OCT, | | | | | | and cryosectioned onto | | | | | | five separate slides. | | | | | | Thesections were then | | | | | | stained with fluorescein | | | | | | isothiocyanate | | | | | | conjugatedanti-human | | | | | | IgG, IgA, IgM, C3, and | | | | | | fibrinogen, | | | | | | respectively. | | | | | | FINDINGS:There is weak, | | | | | | fine linear deposition | | | | | | of IgG and strong linear | | | | | | depositionof C3 both | | | | | | found along the basement | | | | | | membrane zone. In | | | | | | addition, there | | | | | | ismoderately intense to | | | | | | strong granular | | | | | | deposition of IgM and | | | | | | IgA as well asstrong | | | | | | homogeneous deposition | | | | | | of both C3 and | | | | | | fibrinogen within the | | | | | | savage ofsuperficial | | | | | | dermal blood vessels. | | | | | | | | | | | | COMMENTS/DIAGNOSIS:The | | | | | | above findings are an | | | | | | unusual constellation of | | | | | | changes. 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 The | | | | | | differential diagnosis | | | | | | from animmunopathologic | | | | | | standpoint includes | | | | | | epidermolysis bullosa | | | | | | acquisita,mucous | | | | | | membrane pemphigoid, or | | | | | | bullous lupus. | | | | | | There are also changes | | | | | | supportive of a | | | | | | diagnosis of vasculitis. | | | | | | Thegranular | | | | | | deposition of | | | | | | immunoreactants in | | | | | | vessel savage are a | | | | | | feature | | | | | | ofleukocytoclastic | | | | | | vasculitis which is a | | | | | | distinct process from | | | | | | bullouspemphigoid. | | | | | | Correlation with | | | | | | routine histopathology | | | | | | and a clinicalfindings | | | | | | would be of value in | | | | | | arriving at a final | | | | | | diagnosis. Testing | | | | | | was performed with an | | | | | | appropriate positive and | | | | | | negative control | | | | | | foreach | | | | | | immunoreactant.M:jyi3/ | | | | | | My | | | | | | [...] Diagnostician: | | | | | | Autumn Barker | | | | | | Yesii | | | | | | melida Signed 01/07/2017 | | | | | | 8:07AM | | | | + + + [...] [facility] | [address] | [place] [address] | | | DERMATOPATHOLOGY | [address] | | | + + + + + | [facility] | [address] | [place] [address] | | | DERMATOPATHOLOGY | [address] | | | + + + + + documented in this encounter Visit Diagnoses Not on filedocumented in this encounter"
--- OUTSIDE RECORDS SUMMARY | ~2020-07-26 | XMS | Encounter Summary ---
Demographics + + + | Address | [address] | | | [place] [address] | + + + | Home Phone [...] + + + | Author | [facility] | | | and [place] | + + + | Organization | [facility] | | [...] Providers + +------+ + | Care Financial Professional Name | Role | Phone | + +------+ + PCP | Unavailable | + +------+ + Encounter Details +--------+ + + + + | Date | Type | Department | Care Team | Description | +--------+ + + + + | 09/07/ | Hospital | [facility] | Drew Hurst | | | 2012 - | Encounter | [facility] [address] | [address] | | | | | [address] | [place] | | | 09/09/ | | [facility] | [place] [address] [address] | | | 2012 | | [address] | [phone] | | | | | [phone] | | | +--------+ + + + [...] Summaries by Drew Hurst MD at 09/09/13 1727 Author: Drew Hurst MD Service: Orthopedic Surgery Author Type: Physician Filed: 09/09/13 0941 Date of Service: 09/09/13 0939 Status: Signed Feed Elevator Worker: Drew Hurst MD (Physician) [facility] Service: Orthopedic Surgery Discharge Summary Date [...] - TOTAL; Surgeon: Drew Hurst MD; Location: [facility] MAIN OR; Servic e: Orthopedics; Laterality: [...] up: 7-10 days with Drew Hurst MD (assistant editor Alison Tompkins) [facility] [address] [place] [id number] . 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 All discharge instructions to includ e medications and appointments reviewed with patient and his . Prescriptions given to wi fe. PIV removed, catheter intact, bandage applied. All questions answered. onver zoe Transaction, Provider Unknown - 09/09/2013 11:37 AM PST Case Management by Rita Borja RN at 09/09/13 174 Author: Rita Borja RN Service: (none) Author Type: Registered Nurse Filed: 09/09/13 1138 Date of Service: 09/09/131136 Status: Signed Feed Elevator Worker: Rita Borja RN (Registered Nurse) HEMANT Iqbal [...] Date of Service: 09/09/13 1032 Status: Signed Feed Elevator Worker: Marta Lopez RN (Registered Nurse) CHF education completed with patient and his , packet given to patient. All questions a nswered onver zoe Transaction, Provider Unknown - 09/09/2013 10:10 AM PST Progress Notes by Shayla Hennessy LPN at 09/09/13 1010 Author: Shayla Hennessy LPN Service: (none) Author Type: Registered Nurse Filed: 09/09/13 1010 Date of Service: 09/09/13 1010 Status: Signed Feed Elevator Worker: Shayla Hennessy LPN (Registered Nurse) Visited with pt this am regarding warfarin education. [facility]. Pt has no questions regarding warfarin at this time. onver zoe Transaction, Provider Unknown - 09/09/2013 9:55 AM PST Progress Notes by Irina Cooley PTA at 09/09/13 0955 Author: Irina Cooley PTA Service: (none) Author Type: Electric Pile Driver Operator Filed: 09/09/13 1310 Date of Service: 09/09/13 0955 Status: Signed Feed Elevator Worker: Irina Cooley PTA (Electric Pile Driver Operator) 09/09/13 0955 PT Last Visit PT Received [...] 09/09/13938 Date of Service: 09/09/13937 Status: Signed Feed Elevator Worker: Drew Hurst MD (Physician) Subjective: Post-Operative Day: [...] Will get INR checked on Friday in [place]. DREW HURST MD 09/09/2013 9:38 AM onversio n Transaction, Provider Unknown - 09/08/2013 1:16 PM PSTFormatting of this note might be di fferent from the original. Progress Notes by Ale Yee RD, CDE at 09/08/13 1316 Author: Ale Yee RD, VEDA Service: (none) Author Type: Tobacco Wetter Filed: 09/08/13 4439 Date of Service: 09/08/131315 Status: Signed Feed Elevator Worker: Ale Yee RD, CDE (Tobacco Wetter) Met with pt and spouse. Reports he [...] and metformin. Ale Yee RD, MPH, CDE, Tobacco Wetter 09/08/2013 1:39 PM onver zoe Transaction, Provider Unknown - 09/08/2013 12:35 PM PST Progress Notes by Mireya Hoyos PT at 09/08/13 1235 Author: Mireya Hoyos PT Service: (none) Author Type: Physical Therapist Filed: 09/08/13 1410 Date of Service: 09/08/13 1235 Status: Signed Feed Elevator Worker: Mireya Hoyos PT (Physical Therapist) 09/08/13 1235 PT Last Visit PT Received On 09/08/13 Reason for Treatment Knee replacement Requires PT Follow Up Yes Follow up PT Only? No Assistance Required 1 person Collection Systems Consultant Needed No Precautions LE Precaution(s) RLE (WBAT [...] exercise: Marching, LAQ, Heel raises, Glut squeezes: [id number] Standing exercise: Marching, Hip Abd, Hip ext: [id number] Patients actively encouraged each other throughout activities [...] Orthopedic Surgery Author Type: Physician Filed: 09/08/13 1143 Date of Service: 09/08/13 1143 Status: Signed Feed Elevator Worker: Drew Hurst MD (Physician) Subjective: Post-Operative Day: [...] Author: ABBIE Delgado Service: (none) Author Type: Annual Greenhouse Manager Filed: 09/08/1347 Date of Service: 09/08/13845 Status: Signed Feed Elevator Worker: ABBIE Delgado (Annual Greenhouse Manager) CM met with pt for discharge planning. Pt is 73 years old and lives with his in a 2-le alan home with a ramp at the main entrance. Pt has a [id number]-hcrwjc. Pt owns a walker. Pt's w mike will assist with his daily living activities including personal hygiene, grooming, dress ing, feeding, cooking, transportation and ambulation. Pt had no resource concerns at this ti me. CM will continue to follow as needed. Discharge Plan: Home. Eric Sanabria ROTARY KILN OPERATOR 09/08/13 0846 Discharge Planning Evaluation Admitting Diagnosis [...] Notes by Mireya Hoyos PT at 09/08/13 0876 Author: Mireya Hoyos PT Service: (none) Author Type: Physical Therapist Filed: 09/08/13 7711 Date of Service: 09/08/13 0847 Status: Signed Feed Elevator Worker: Mireya Hoyos PT (Physical Therapist) 09/08/13 0851 PT Last Visit PT Received On 09/08/13 Reason for Treatment Knee replacement Requires PT Follow Up Yes Follow up PT Only? No Assistance Required 1 person Collection Systems Consultant Needed No Precautions LE Precaution(s) RLE (WBAT [...] 09/07/132032 Date of Service: 09/07/132030 Status: Signed Feed Elevator Worker: Jeimy Ayala RN (Registered Nurse) Spoke with [...] 161 Date of Service: 09/07/131610 Status: Signed Feed Elevator Worker: ILSA Wallace (Occupational Therapist) 09/07/13 1343 Plan Requires OT Follow Up Unavailable (Pt with PT ) Pt unavailable upon OT arrival. Plan to re-attempt evaluation/treatment as census permits ILSA Wallace 09/07/2013 onver zoe Transaction, Provider Unknown - 09/07/2013 1:25 PM PST Progress Notes by Gilberto Carl, PT at 09/07/13 1325 Author: Gilberto Carl PT Service: (none) Author Type: Physical Therapist Filed: 09/07/13 1897 Date of Service: 09/07/13 1325 Status: Signed Feed Elevator Worker: Gilberto Carl PT (Physical Therapist) 09/07/13 1325 PT Last Visit PT Received On 09/07/13 Reason for Treatment Knee replacement Requires PT Follow Up Yes PT Eval/Reassessment Date 09/07/13 Collection Systems Consultant Needed No Precautions LE Precaution(s) RLE (WBAT) [...] chair with back Prior Function Level of [place] Modified independent with functional mobility (Pt used SPC prior to sx) Lives With Spouse Employment Retired for age ([employer] full-time) RUE Assessment RUE Assessment WFL (rotator [...] Follow Up Yes PT Eval/Reassessment Date 09/07/13 Collection Systems Consultant Needed No Precautions LE Precaution(s) RLE (WBAT) [...] Date of Service: 09/07/13 1257 Status: Signed Feed Elevator Worker: Shelly Rojo RPH (Pharmacist) Renal Dosing Monitoring: [...] H&P by Drew Hurst MD at 09/06/13 9610 Author: Drew Hurst MD Service: Orthopedic Surgery Author Type: Physician Filed: 09/06/13 8193 Date of Service: 09/06/131624 Status: Signed Feed Elevator Worker: Drew Hurst MD (Physician) Subjective: Patient is [...] Patient has been treat ed conservatively with [id number] NSAIDs and activity modification. Patient currently rates [...] Care by Jeimy Ayala RN at 09/07/13 1230 Author: Jeimy Ayala RN Service: (none) Author Type: Registered Nurse Filed: 09/07/13 123 Date of Service: 09/07/131235 Status: Signed Feed Elevator Worker: Jeimy Ayala RN (Registered Nurse) Problem: Safety [...] 1001 Date of Service: 09/07/13957 Status: Signed Feed Elevator Worker: Drew Hurst MD (Physician) [facility] Service: Orthopedic Surgery Operative Report PREOPERATIVE DIAGNOSIS: right knee DJD POSTOPERATIVE DIAGNOSIS: right knee DJD PROCEDURE: right total knee arthroplasty with navigation SURGEON: Drew Hurst MD OFFICE MACHINE REPAIR SHOP SUPERVISOR: Kaur Del Angel MD ANESTHESIA: General ANESTHESIOLOGIST: Gopal AGUILAR FLUIDS: 1500cc ESTIMATED BLOOD LOSS: minimal TOURNIQUET TIME: 90 min Right thigh URINE OUTPUT: 250cc COMPLICATIONS: none IMPLANTS: [place] [employer] Total Knee system 1- Size 4 [...] cutting block and made my cuts: anterior, digital account coordinator ior, anterior chamfer, and posterior chamfer. I removed the bony fragments, then placed a l aminar zoning technician in the flexion gap and removed the [...] of three liters sterile saline with pulse keyboard instrument repairer. There was no patellar maltracking. Floseal was [...] extubated. The patient was placed back to [facility] bed, and taken to the recovery [...]
--- OUTSIDE RECORDS SUMMARY | ~2020-07-26 | XMS | Clinical Summary ---
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 Pulse generator: Mobee. Model number [id number], | | serial number [id number]. Placed because of symptomatic sinus | | [...] block.2. RV | | lead: Medtronic, model #491016, serial number [id number]. RA | | lead: Medtronic, model #497880, serial number [id number]. This | | is an Medtronic MRI [...] is planning to | | go to [place] after . 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 | + + Encounters +--------+ + + + + | Date | Type | Specialty | Care Team | Description | +--------+ + + + + | 07/18/ | Hospital | Internal Medicine | 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[place] | | | | | | heart without angina | | | | | | pectoris; Cardiac | | | | | | pacemaker in situ; | | | | | | Chronic renal | | | | | | insufficiency, stage | | | | | | 4 (severe) ([facility]); | | | | | [...] | | | | | | tachycardia) ([facility]); | | | | | | Nonsustained | | | | | | ventricular | | | | | | tachycardia ([facility]); | | | | | [...] cardiomyopathy | | | | | | ([facility]); Chronic | | | | | | systolic heart | | | | | | failure ([facility]); SSS | | | | | | (sick sinus | | | | | | syndrome) ([facility]); | | | | | [...] | | 2017 | -500 | | [id number]: Qty: 1 on | | | | | | /[id number] | | 09/07/2013 by Aris, | | | | | | 500 | | Drew Mendoza MD | | | | | | /[id number] | + +------+------+ +--------+--------+--------+ | Patella Triathlon 38mm 11mm | | | | | 04/25/ | 5551-G | | Height - [id number]: | | | | | 2017 | [...] | | 2017 | -402 | | [id number]: Qty: 1 on | | | | [...] - | | | | | | /[id number] | | [id number]: Qty: 1 on | | | | | | 001 | | 09/07/2013 by Aris, | | | | | | /[id number] | | Drew Mendoza MD | | | | | | 1 | + +------+------+ +--------+--------+--------+ | Insert Tibial Triathlon Cs Sz | | | | | 01/23/ | 5531-G | | 5 13mm - [id number]: | | | | | 2018 | [...] Testing | 65 - 99 mg/dL | [facility] | | | POC | performed at [facility];[address] | | LABORATORY | | | | [address];[place], [place] | | | | | | [address] | | | | + + + + + + + + | Specimen | + + | | + + + + + + + | Performing | Address | City/State/Zipcode | Phone Number | | Organization | | | | + + + + + | [facility] | [address] | [place] [address] | [phone] | + + + + + Protime [...] | | | | | performed at [facility] | | | | | | [address];[place], [place] | | | | | | [address] | | | | + + + + + + + + | Specimen | + + | Blood | + + + + + + + | Performing | Address | City/State/Zipcode | Phone Number | | Organization | | | | + + + + + | [facility] | [address] | [place] [address] | [phone] | + + + + + CBC [...] 11.24 (H) | 3.80 - 11.00 | [facility] | | | | | K/uL | [...] RBC | NORMAL RBC MORPHComment: | | [facility] | | | Morphology | Testing performed at | | LABORATORY | | | | [facility], [address] | | | | | | [place] | | | | | | [address] | | | | + + + + + + + + | Specimen | + + | Blood | + + + + + + + | Performing | Address | City/State/Zipcode | Phone Number | | Organization | | | | + + + + + | [facility] | [address] | [place] [address] | [phone] | + + + + + Comprehensive [...] 42 (L)Comment: GFR <60: | >60 | [facility] [...] | | | | | performed at [facility], [address] | | | | | | [address], | | | | | | [place] [address] | | | | + + + + + + + + | Specimen | + + | Blood | + + + + + + + | Performing | Address | City/State/Zipcode | Phone Number | | Organization | | | | + + + + + | [facility] | [address] | [place] [address] | [phone] | + + + + + Basic [...] 7.8 (L) | 8.5 - 10.5 | [facility] | | | | | mg/dL | LABORATORY | | + + + + + + | Estimated | 49 (L)Comment: GFR <60: | >60 | [facility] | | | GFR | CHRONIC KIDNEY [...] | | | | | performed at [facility], [address] | | | | | | [facility], | | | | | | [place] [address] | | | | + + + + + + + + | Specimen | + + | Blood | + + + + + + + | Performing | Address | City/State/Zipcode | Phone Number | | Organization | | | | + + + + + | [facility] | [address] | [place] [address] | [phone] | + + + + + Magnesium [...] Testing | 1.7 - 2.4 mg/dL | [facility] | | | | performed at [facility] | | LABORATORY | | | | [address];[place] | | | | | | [address] | | | | + + + + + + + + | Specimen | + + | Blood | + + + + + + + | Performing | Address | City/State/Zipcode | Phone Number | | Organization | | | | + + + + + | [facility] | [address] | [place] [address] | [phone] | + + + + + CK [...] Testing | 55 - 400 U/L | [facility] | | | | performed at [facility];[address] | | [address]AT[address] | | | | [address];[place], [place] | | | | | | [address] | | | | + + + + + + + + | Specimen | + + | Blood | + + + + + + + | Performing | Address | City/State/Zipcode | Phone Number | | Organization | | | | + + + + + | [facility] | [address] | [place] [address] | [phone] | + + + + + [place] [...] | 38Comment: Testing | <100 mg/dL | [facility] | | | Calculated | performed at [facility], [address] | | LABORATORY | | | | [address], | | | | | | [place] [address] | | | | + + + + + + + + | Specimen | + + | Blood | + + + + + + + | Performing | Address | City/State/Zipcode | Phone Number | | Organization | | | | + + + + + | [facility] | [address] | [place] [address] | [phone] | + + + + + TSH, Reflex Free T4 (07/20/2020 5:53 AM PDT) + + + + + + | Component | Value | Ref Range | Performed | Pathologist | | | | | At | Signature | + + + + + + | TSH | 0.372 (L) | 0.450 - 5.100 | [facility] | | | | | uIU/mL | LABORATORY | | + + + + + + + + | Specimen | + + | Blood | + + + + + + + | Performing | Address | City/State/Zipcode | Phone Number | | Organization | | | | + + + + + | [facility] | [address] | [place] [address] | [phone] | + + + + + T4, Free (07/20/2020 5:53 AM PDT) + + + + + + | Component | Value | Ref Range | Performed | Pathologist | | | | | At | Signature | + + + + + + | FT4 | 1.3Comment: Testing | 0.7 - 1.5 ng/dL | [facility] | | | | performed at [facility] | | LABORATORY | | | | [facility];[place], [place] | | | | | | [address] | | | | + + + + + + + + | Specimen | + + | | + + + + + + + | Performing | Address | City/State/Zipcode | Phone Number | | Organization | | | | + + + + + | [facility] | [address] | [place] [address] | [phone] | + + + + + ECG [...] MD | | | | | | ([id number]) on 07/21/2020 | | | | | [...] 0.249 (L)Comment: | 0.450 - 5.100 | [facility] | | | | Testing performed at | uIU/mL | LABORATORY | | | | [facility];[address];[place] [address] | | | | + + + + + + + + | Specimen | + + | | + + + + + + + | Performing | Address | City/State/Zipcode | Phone Number | | Organization | | | | + + + + + | [facility] | [address] | [place] [address] | [phone] | + + + + + Procalcitonin [...] | 1.38 (H)Comment: | <0.5 ng/mL | [facility] | | | IN | INTERPRETIVE | [...] | | | | | | at [facility];[address] [place] [address] | | | | | | [facility];[place] [address] | | | | + + + + + + + + | Specimen | + + | Blood | + + + + + + + | Performing | Address | City/State/Zipcode | Phone Number | | Organization | | | | + + + + + | [facility] | [address] | [place] [address] | [phone] | + + + + + Phosphorus (07/19/2020 4:23 AM PDT)Only the most recent of 2 results within the time perio d is included. + + + + + + | Component | Value | Ref Range | Performed | Pathologist | | | | | At | Signature | + + + + + + | Phosphorus | 2.4Comment: Testing | 2.3 - 4.8 mg/dL | [facility] | | | | performed at [facility];[address] | | LABORATORY | | | | [address];[place] | | | | | | [address] | | | | + + + + + + + + | Specimen | + + | Blood | + + + + + + + | Performing | Address | City/State/Zipcode | Phone Number | | Organization | | | | + + + + + | [facility] | [address] | [place] [address] | [phone] | + + + + + Troponin [...] 0.815 ()Comment: | 0.00 - 0.04 | [facility] | | | | 0.04 ng/mL or [...] | | | | CALLED TO 10RP PROMOTIONS FIRM ACCOUNTS MANAGER | | | | | | GITA Overton AT 0524 BY | | | | | | MWREAD BACK RESULTS | | | | | | VERIFIEDTesting | | | | | | performed at [facility];[address] | | | | | | [address];[place], [place] | | | | | | [address] | | | | + + + + + + + + | Specimen | + + | Blood | + + + + + + + | Performing | Address | City/State/Zipcode | Phone Number | | Organization | | | | + + + + + | [facility] | [address] | [place] [address] | [phone] | + + + + + CK-MB [...] at | | | | | | [facility];[address] | | | | | | [address];[place] [address] | | | | + + + + + + + + | Specimen | + + | | + + + + + + + | Performing | Address | City/State/Zipcode | Phone Number | | Organization | | | | + + + + + | [facility] | [address] | [place] [address] | [phone] | + + + + + POC RAPID STREP A (07/18/2020 [...] | | | | | performed at [facility];[address] | | | | | | [address];[place], [place] | | | | | | [address] | | | | + + + + + + + + | Specimen | + + | | + + + + + + + | Performing | Address | City/State/Zipcode | Phone Number | | Organization | | | | + + + + + | [facility] | [address] | [place] [address] | [phone] | + + + + + RAPID STREP SWAB COLLECTION (07/18/2020 8:06 PM PDT) + + + + + + | Component | Value | Ref Range | Performed | Pathologist | | | | | At | Signature | + + + + + + | Collection | THROATComment: Testing | | [facility] | | | | performed at [facility];[address] | | LABORATORY | | | | [address];[place] | | | | | | [address] | | | | + + + + + + + + | Specimen | + + | | + + + + + + + | Performing | Address | City/State/Zipcode | Phone Number | | Organization | | | | + + + + + | [facility] | [address] | [place] [address] | [phone] | + + + + + XR [...] Procedure Note | + + | Rocky, [id number] - 07/18/2020 7:35 PM PDT | | [...] | | Final Report Signed by: Negro Palemr Chet | | Sign Date/Time: 07/18/2020 7:32 [...] Procedure Note | + + | Rocky, [id number] - 07/18/2020 7:37 PM PDT | | [...] | | | | | performed at [facility];[address] | | | | | | [address];[place], [place] | | | | | | [address] | | | | + + + + + + + + | Specimen | + + | Blood | + + + + + + + | Performing | Address | City/State/Zipcode | Phone Number | | Organization | | | | + + + + + | [facility] | [address] | [place] [address] | [phone] | + + + + + Culture, Blood (07/18/2020 6:43 PM PDT)Only the most recent of 2 results within the time loren blanchard is included. + + + + + + | Component | Value | Ref Range | Performed | Pathologist | | | | | At | Signature | + + + + + + | Special | LPasuqaleHAND | | [facility] | | | Requests | | | LABORATORY | | + + + + + + | Special | Testing performed at | | [facility] | | | Requests | [facility];[address] [facility] | | LABORATORY | | | | [address];[place] [address] | | | | + + + + + + | Culture | NO GROWTH 6 DAYS | | [facility] | | | | | | LABORATORY | | + + + + + + | Culture | Testing performed at | | [facility] | | | | [facility], [address] [facility] | | LABORATORY | | | | [place], [place] | | | | | | [address]Nebxiso: Testing | | | | | | performed at [facility], [facility] | | | | | | [address], [place] | | | | | | [address] | | | | + + + + + + + + | Specimen | + + | Blood - Peripheral | | blood specimen | | (specimen) | + + + + + + + | Performing | Address | City/State/Zipcode | Phone Number | | Organization | | | | + + + + + | [facility] | [address] | [place] [address] | [phone] | + + + + + PTT (07/18/2020 5:37 PM PDT) + + + + + + | Component | Value | Ref Range | Performed | Pathologist | | | | | At | Signature | + + + + + + | PTT | 54 (H)Comment: Testing | 23 - 32 seconds | [facility] | | | | performed at [facility];[address] | | LABORATORY | | | | [address];[place] | | | | | | [address] | | | | + + + + + + + + | Specimen | + + | | + + + + + + + | Performing | Address | City/State/Zipcode | Phone Number | | Organization | | | | + + + + + | [facility] | [address] | [place] [address] | [phone] | + + + + + B Type Natriuretic Peptide (07/18/2020 5:37 PM PDT) + + + + + + | Component | Value | Ref Range | Performed | Pathologist | | | | | At | Signature | + + + + + + | BNP | 772.50 (H)Comment: | 0 - 100 pg/mL | [facility] | | | | Testing performed at | | LABORATORY | | | | [facility];[address];[place] [address] | | | | + + + + + + + + | Specimen | + + | Blood | + + + + + + + | Performing | Address | City/State/Zipcode | Phone Number | | Organization | | | | + + + + + | [facility] | [address] | [place] [address] | [phone] | + + + + + Coronavirus (COVID-19) NAAT (07/18/2020 5:10 PM PDT) + + + + + + | Component | Value | Ref Range | Performed | Pathologist | | | | | At | Signature | + + + + + + | SARS-CoV-2, | POSITIVE (A)Comment: | NEG | [facility] | | | NAAT | This test was developed | | LABORATORY | | | (COVID-19) | and its performance | | | | | | characteristics | | | | | | [facility]. It | | | | | | [...] | | | | | performed at [facility];[address] | | | | | | [facility];[place], [place] | | | | | | [address] | | | | + + + + + + + + | Specimen | + + | Tissue - Entire | | nasopharynx (body | | structure) | + + + + + + + | Performing | Address | City/State/Zipcode | Phone Number | | Organization | | | | + + + + + | [facility] | [address] | [place] [address] | [phone] | + + + + + Urinalysis [...] - 1.030 | [facility] | | | [place], | | | LABORATORY | | | [...] | | | | | Urine | Blvd;[place] [address] | | | | + + + [...] | + + + + + | [facility] | [address] | [place] [address] | [phone] | + + + + + [place] [...] +--------+ +---------+--------+ | CIGNA | CIGNA | [id number] | 10/27/19 | [phone] | | Indemn [...] +--------+ +---------+--------+ | MEDICARE | MEDICA | [id number] | 01/26/20 | [phone] | | Medica | | | RE | | 15-Pre | 5 | | re | | | PART A | | sent | | | | | | AND B | | | | | | + +--------+ +--------+ +---------+--------+ | MEDICARE | MEDICA | [id number] | 04/26/20 | [phone] | | Medica | | | RE | | 03-Pre | 5 | | re | | | PART A | | sent | | | | | | AND B | | | | | | + +--------+ +--------+ +---------+--------+ | CIGNA | CIGNA | [id number] | 10/27/19 | [phone] | | Indemn [...] Person | Self [birth year] | | [address] | | | al/Fam | | 1940 | [phone] | [place] [address] | | | afshan | | | 4 (Home) | | + +--------+ +--------+ + + | Duane Mas | Person | Self | [birth year] | | [address] | | | al/Fam | | 1940 | [phone] | [place] [address] | | | afshan | | | 4 (Home) | | + +--------+ +--------+ + + Advance Directives + + + + + | Type | Date Recorded | Patient | Explanation | | | | Supervisor Engine Repair | | + + + + + | Power of | | | | | Fruit Buying Grader | | | | + + + [...]
--- OUTSIDE RECORDS SUMMARY | ~2020-07-26 | XMS | Encounter Summary ---
Demographics + + + | Address | [address] | | | [place] [address] | + + + | Home Phone | | + + + | Preferred Language | Unknown | + + + | Marital Status | Unknown | + + + | Jehovah'S Witness Affiliation | PRO | + + + [...] Team Providers + +------+ + | Care Textile Pin Worker Name | Role | Phone | + +------+ + | Gilberto Estrada MD | PCP | | + +------+ + Reason for Visit + +--------+ + | Reason | Onset | Comments | | | Date | | + +--------+ + | RN Care Management | 07/09/ | Resumed care at home [facility] from [place] | | | 2017 | | + [...] at | | | | [address] | [facility] | home post DC from | | | | [facility] | [place], [place] | [facility]); | | | | [place], 3rd floor | [address] | Infectious disease | | | | [place], [place] | [phone] | | | | | [address] | | | | | | [phone] | | | +--------+ + + + [...] RN - 07/09/2018 2:39 PM Luca, from [facility] , called to inform us that the patient was DC'd from [facility] yesterday and is back on service with [...]
--- OUTSIDE RECORDS SUMMARY | ~2020-07-26 | XMS | Encounter Summary ---
Demographics + + + | Address | [address] | | | [place] [address] | + + + | Home Phone [...] Author + + + | Author | [facility] | + + + | Organization | [facility] | + + + | Address | Unknown | + + + | Phone | Unavailable | + + + Support + + +---------+ + | Name | Relationship | Address | Phone | + + +---------+ + | Beth Mas | ECON | Unknown | | + + +---------+ + Care Team Providers + +------+ + | Care Farmworker Fur Name | Role | Phone | + [...] | | | | and | | [address] | | | | | inflammatory | | [place] | | | | | reaction | | [address] [place], | | | | | due to | | [place] | | | | | internal | | [address] | | | | | right knee | | Phone: | | | | | prosthesis, | | [phone] | | | | | initial | | Fax: | | | | | encounter | | [phone] | +--------+--------+ + + + + Encounter [...] | | | | [facility] | [facility] [place] | subsequent encounter | | | | [place], 3rd floor | [address] | (Primary Dx); Long | | | | [place], [place] | [phone] | term (current) use | | | | [address] | | of antibiotics | | | | [phone] | | | +--------+---------+ + + + [...] he was briefly hospitalized since discharge from [facility] for ALVINO. Cr now back at prev [...] mouth once daily., Disp: , Rfl: antiox. no.72-[id number]-qkz-maf (I-CAPS) 280-10-2 mg oral capsule, Take 1 [...] three times daily., Disp: , Rfl: omega 6-bwn-hix-fish oil (FISH OIL) 100-160-1,000 mg oral capsule, [...] prn Abril Shields MD Infectious Diseases p [phone] documented in this encounter Plan of Treatment Not on filedocumented as of this encounter Visit Diagnoses + + | Diagnosis | + + | Infection associated with internal right knee prosthesis, subsequent encounter - | | Primary | + + | intermediate designer (current) use of antibiotics | + + documented in this encounter"
--- OUTSIDE RECORDS SUMMARY | ~2020-07-26 | XMS | Encounter Summary ---
Demographics + + + | Address | [address] | | | [place] [address] | + + + | Home Phone [...] Providers + +------+ + | Care County Court Judge Name | Role | Phone | + +------+ + PCP | Unavailable | + +------+ + Encounter Details +--------+ + + + + | Date | Type | Department | Care Team | Description | +--------+ + + + + | 09/03/ | Hospital | [facility] | Conversion | | | 2012 | Encounter | [facility] | Transaction, | | | | | CLINIC [address] | Provider Unknown | | | | | [place], [place] | | | | | | [address] | (Fax) | | | | | [phone] | | | +--------+ + + + [...] 09/03/131419 Date of Service: 09/03/131419 Status: Signed Pest Control Applicator: Manasa Andrade RN (Registered Nurse) Uses abimael [...] EXTERNAL LAB | | Testing performed at [facility];[address] [place] [address];[place] [address] MRSA PCR | | | NEGATIVE Testing performed at | | | [facility];[address] [place] [address];[place] [address] | | + + + + +---------+ + + | Performing | Address | City/State/Zipcode | Phone Number | | Organization | | | | + +---------+ + + | EXTERNAL LAB | | | | + +---------+ + + documented in this encounter Visit Diagnoses Not on filedocumented in this encounter"
--- OUTSIDE RECORDS SUMMARY | ~2020-07-26 | XMS | Encounter Summary ---
Demographics + + + | Address | [address] | | | [place] [address] | + + + | Home Phone [...] Author + + + | Author | [facility] | + + + | Organization | [facility] | + + + | Address | Unknown | + + + | Phone | Unavailable | + + + Support + + +---------+ + | Name | Relationship | Address | Phone | + + +---------+ + | Beth Mas | ECON | Unknown | | + + +---------+ + Care Team Providers + +------+ + | Care Education Assistant Name | Role | Phone | + +------+ + | Gilberto Estrada MD | PCP | | + +------+ + Encounter Details +--------+ + + + + | Date | Type | Department | Care Team | Description | +--------+ + + + + | 07/14/ | Hospital | Radiology/Imaging | [place], | | | 2017 | Encounter | at [facility] | [address] | | | | | [address] | [place], [place] | | | | | [facility] [address] | [address] | | | | | [place], [place] | [phone] | | | | | [address] | | | | | | [phone] | | | +--------+ + + + [...] | | 0 | | | | [id number] | mouth once daily. | | | [...]
--- OUTSIDE RECORDS SUMMARY | ~2020-07-26 | XMS | Encounter Summary ---
Demographics + + + | Address | [address] | | | [place] [address] | + + + | Home Phone [...] + | Author | [facility] | | [...] Team Providers + +------+ + | Care Personal Injury Law Specialist Name | Role | Phone | + +------+ + PCP | Unavailable | + +------+ + Encounter Details +--------+ + + + + | Date | Type | Department | Care Team | Description | +--------+ + + + + | 10/08/ | Hospital | [facility] | Olaf Nicole | | | 1998 - | Encounter | [facility] | MD [address] | | | | | CARDIAC TELEMETRY | [address] | | | 10/09/ | | [address] | [place] [address] | | | 2000 | | [place] | [phone] | | | | | [address] | | | | | | [phone] | | | +--------+ + + + [...]
--- OUTSIDE RECORDS SUMMARY | ~2020-07-26 | XMS | Encounter Summary ---
Demographics + + + | Address | [address] | | | [place] [address] | + + + | Home Phone [...] Team Providers + +------+ + | Care Plant Sprayer Name | Role | Phone | + +------+ + PCP | Unavailable | + +------+ + Encounter Details +--------+ + + + + | Date | Type | Department | Care Team | Description | +--------+ + + + + | 09/16/ | Hospital | [facility] | Olaf Nicole | | | 2000 | Encounter | [facility] | MD [address] | | | | | GENERIC CONV DEPT | [address] | | | | | [address] | [place] [address] | | | | | [place] | [phone] | | | | | [address] | | | | | | [phone] | | | +--------+ + + + [...]
--- OUTSIDE RECORDS SUMMARY | ~2020-07-26 | XMS | Encounter Summary ---
Demographics + + + | Address | [address] | | | [place] [address] | + + + | Home Phone | | + + + | Preferred Language | Unknown | + + + | Marital Status | | + + + | Zoroastrian Affiliation | 1077 | + + + [...] Team Providers + +------+ + | Care Buffet Waiter/Waitress Name | Role | Phone | + +------+ + PCP | Unavailable | + +------+ + Encounter Details +--------+ + + + + | Date | Type | Department | Care Team | Description | +--------+ + + + + | 10/24/ | Hospital | [facility] | Conversion | [facility] ([facility]) | | 2016 - | Encounter | [facility]ICAL [facility]ENTER | Transaction, | | | | | CLINICAL DECISION | Provider Unknown | | | 10/25/ | | [address] [facility] | | | | 2016 | | [place] | | | | | | [address] | Robel Ricci Ken | | | | | [phone] | MD [address] | | | | | | [address] | | | | | | [place] [address] | | | | | | [phone] | | | | | | | [...] 1742 Date of Service: 10/25/16956 Status: Signed Operations Vocational Instructor: Mikal Ha MD (Physician) [facility] Service: Cardiology Discharge Summary Date of [...] Date of Service: 10/24/16 1631 Status: Signed Operations Vocational Instructor: Ariana Johnson RN (Registered Nurse) Arm sling applied to left arm. docume nted in this encounter H&P Notes Mikal Ha - 10/24/2016 1:01 PM PST H&P by Mikal Ha MD at 10/24/16 1301 Author: Mikal Ha MD Service: Cardiology Author Type: Physician Filed: 10/24/16 1301 Date of Service: 10/24/16 1301 Status: Signed Operations Vocational Instructor: Mikal Ha MD (Physician) [facility] Service: Cardiology Pre-Operative History & Physical [...] this, however is planning to go to [place] after . He is on warf mustapha [...] mild distal inferior-apical ischemia, LVEF 53%. 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 Essential hypertension Hypertension, controlled, continue current [...] this, however is planning to go to [place] after . He is on warfarin at [...] topically 2 (two) times daily as needed. [place]-3 Fatty Acids (FISH OIL) 1200 MG CAPS [...] (none) Author Type: Registered Nurse Filed: 10/25/16 1027 Date of Service: 10/25/16 1027 Status: Signed Operations Vocational Instructor: Amy Broderick RN (Registered Nurse) Daily care [...] 10/24/162316 Date of Service: 10/24/162316 Status: Signed Operations Vocational Instructor: Erick Ramos RN (Registered Nurse) No falls [...] 10/24/162315 Date of Service: 10/24/162315 Status: Signed Operations Vocational Instructor: Erick Ramos RN (Registered Nurse) Daily care [...] | | | Fingerstick | performed at [facility];[address] | | LAB | | | | [address];[place], [place] | | | | | | [address] | | | | + + + [...] EXTERNAL LAB | | Testing performed at [facility];[address] [place] [address];[place] [address] MRSA PCR | | | NEGATIVE Testing performed at | | | [facility];[address] [place] [address];[place] [address] | | + + + + +---------+ [...] | | | | | performed at [facility] | | | | | | [address];[place], [place] | | | | | | [address] | | | | + + + [...] EXTERNAL | | | | performed at [facility];[address] | K/uL | LAB | | | | [address];[place] | | | | | | [address] | | | | + + + + + + | Non- | 5.01Comment: Testing | 4.20 - 5.70 | EXTERNAL | | | Red Blood | performed at [facility];[address] | M/uL | LAB | | | Cells | [address];[place] | | | | | Counted | [address] | | | | + + + + + + | Hemoglobin | 15.0Comment: Testing | 13.2 - 17.0 | EXTERNAL | | | | performed at [facility];888 | g/dL | LAB | | | | [address];[place] | | | | | | [address] | | | | + + + + + + | Hematocrit, | 44.8Comment: Testing | 39.0 - 50.0 % | EXTERNAL | | | POC | performed at [facility];[address] | | LAB | | | | [address];[place] | | | | | | [address] | | | | + + + + + + | MCV | 89.6Comment: Testing | 80.0 - 100.0 fl | EXTERNAL | | | | performed at [facility];[address] | | LAB | | | | [address];[place] | | | | | | [address] | | | | + + + + + + | MCH | 29.9Comment: Testing | 27.0 - 34.0 pg | EXTERNAL | | | | performed at [facility];[address] | | LAB | | | | [address];[place] | | | | | | [address] | | | | + + + + + + | MCHC | 33.4Comment: Testing | 32.0 - 35.5 | EXTERNAL | | | | performed at [facility];888 | g/dL | LAB | | | | [address];[place] | | | | | | [address] | | | | + + + + + + | RDW-CV | 50.3Comment: Testing | 37 - 53 fl | EXTERNAL | | | | performed at [facility];[address] | | LAB | | | | [address];[place] | | | | | | [address] | | | | + + + + + + | Platelet | 111 (L)Comment: Testing | 150 - 400 K/uL | EXTERNAL | | | Count | performed at [facility];[address] | | LAB | | | Plasma | [address];[place] | | | | | | [address] | | | | + + + + + + | MPV | 9.1Comment: Testing | fl | EXTERNAL | | | | performed at [facility];[address] | | LAB | | | | [address];[place] | | | | | | [address] | | | | + + + + + + | Differentia | AUTOMATEDComment: | | EXTERNAL | | | l Type | Testing performed at | | LAB | | | | [address];[place] [address] | | | | + + + + + + | % Segmented | 63.78Comment: Testing | % | EXTERNAL | | | | performed at [facility];[address] | | LAB | | | Neutrophils | [address];[place] | | | | | | [address] | | | | + + + + + + | % | 24.36Comment: Testing | % | EXTERNAL | | | Lymphocytes | performed at [facility];[address] | | LAB | | | | [address];[place] | | | | | | [address] | | | | + + + + + + | % Monocytes | 8.57Comment: Testing | % | EXTERNAL | | | | performed at [facility];[address] | | LAB | | | | [address];[place] | | | | | | [address] | | | | + + + + + + | % | 2.68Comment: Testing | % | EXTERNAL | | | Eosinophils | performed at [facility];[address] | | LAB | | | | [address];[place] | | | | | | [address] | | | | + + + + + + | % Basophils | 0.61Comment: Testing | % | EXTERNAL | | | | performed at [facility];[address] | | LAB | | | | [address];[place] | | | | | | [address] | | | | + + + + + + | Absolute | 5.19Comment: Testing | 1.90 - 7.40 | EXTERNAL | | | Segmented | performed at [facility];[address] | K/uL | LAB | | | Neutrophils | [address];[place] | | | | | | [address] | | | | + + + + + + | Absolute | 1.98Comment: Testing | 1.00 - 3.90 | EXTERNAL | | | Lymphocytes | performed at [facility];[address] | K/uL | LAB | | | | [address];[place] | | | | | | [address] | | | | + + + + + + | Absolute | 0.70Comment: Testing | 0.00 - 0.80 | EXTERNAL | | | Monocytes | performed at [facility];[address] | K/uL | LAB | | | | [address];[place] | | | | | | [address] | | | | + + + + + + | Absolute | 0.22Comment: Testing | 0.00 - 0.50 | EXTERNAL | | | Eosinophils | performed at [facility];[address] | K/uL | LAB | | | | [address];[place] | | | | | | [address] | | | | + + + + + + | Absolute | 0.05Comment: Testing | 0.00 - 0.10 | EXTERNAL | | | Basophils | performed at [facility];[address] | K/uL | LAB | | | | [address];[place] | | | | | | [address] | | | | + + + [...] EXTERNAL | | | | performed at [facility];888 | mmol/L | LAB | | | | [address];[place] | | | | | | [address] | | | | + + + + + + | K | 3.9Comment: Testing | 3.5 - 4.9 | EXTERNAL | | | | performed at [facility];888 | mmol/L | LAB | | | | [address];[place] | | | | | | [address] | | | | + + + + + + | Cl | 103Comment: Testing | 99 - 109 mmol/L | EXTERNAL | | | | performed at [facility];[address] | | LAB | | | | [address];[place] | | | | | | [address] | | | | + + + + + + | CO2 | 32Comment: Testing | 23 - 32 mmol/L | EXTERNAL | | | | performed at [facility];[address] | | LAB | | | | [address];[place] | | | | | | [address] | | | | + + + + + + | Anion Gap | 9Comment: Testing | 5 - 20 mmol/L | EXTERNAL | | | | performed at [facility];[address] | | LAB | | | | [address];[place] | | | | | | [address] | | | | + + + + + + | Glucose, | 121 (H)Comment: Testing | 65 - 99 mg/dL | EXTERNAL | | | Fasting | performed at [facility];[address] | | LAB | | | | [address];[place] | | | | | | [address] | | | | + + + + + + | BUN | 24Comment: Testing | 8 - 25 mg/dL | EXTERNAL | | | | performed at [facility];[address] | | LAB | | | | [address];[place] | | | | | | [address] | | | | + + + + + + | Creatinine | 1.2Comment: Testing | 0.70 - 1.30 | EXTERNAL | | | | performed at [facility];[address] | mg/dL | LAB | | | | [address];[place] | | | | | | [address] | | | | + + + + + + | BUN/Creatin | 20Comment: Testing | | EXTERNAL | | | ine Ratio | performed at [facility];[address] | | LAB | | | | [address];[place] | | | | | | [address] | | | | + + + + + + | Calcium | 8.7Comment: Testing | 8.5 - 10.5 | EXTERNAL | | | | performed at [facility];[address] | mg/dL | LAB | | | | [address];[place] | | | | | | [address] | | | | + + + [...] | | | | | | at [facility];[address] [place] [address] | | | | | | [facility];[place] [address] | | | | + + + [...]
--- OUTSIDE RECORDS SUMMARY | ~2020-07-26 | XMS | Encounter Summary ---
Demographics + + + | Address | [address] | | | [place] [address] | + + + | Home Phone [...] + + + | Author | [facility] | | | and [place] | + + + | Organization | [facility] | | | [...] Team Providers + +------+ + | Care Equipment Tech Name | Role | Phone | + +------+ + | Erin Forrester MD | PCP | | + +------+ + Encounter Details +--------+ + + + + | Date | Type | Department | Care Team | Description | +--------+ + + + + | 12/06/ | Orders Only | [facility] | Conversion | | | 2017 | | CARDIOLOGY [place] | Transaction, | | | | | [address] | Provider Unknown | | | | | [place] | [phone] | | | | | [address] | | | | | | [phone] | | | +--------+ + + + [...]
--- OUTSIDE RECORDS SUMMARY | ~2020-07-26 | XMS | Encounter Summary ---
Demographics + + + | Address | [address] | | | [place] [address] | + + + | Home Phone | | + + + | Preferred Language | Unknown | + + + | Marital Status | | + + + | Tenriism Affiliation | 1077 | + + + | Race | White | + + + | Ethnic Group | Not or | + + + Author + + + | Author | [facility] | | | and [place] | + + + | Organization | [facility] | | | [...] Team Providers + +------+ + | Care Double Needle Stitcher Name | Role | Phone | + [...] + + | 03/01/ | Telephone | [facility] | Kristie De Los Santos ANP | Device Check | | 2020 | | [facility]Y [place] | [address] | | | | | [address] | [place] [address] [place], [place] | | | | | [place], [place] | [address] | | | | | [address] | | | | | | [phone] | | | +--------+ + + + [...]
--- OUTSIDE RECORDS SUMMARY | ~2020-07-26 | XMS | Encounter Summary ---
Demographics + + + | Address | [address] | | | [place] [address] | + + + | Home Phone [...] Author + + + | Author | [facility] | + + + | Organization | [facility] | + + + | Address | Unknown | + + + | Phone | Unavailable | + + + Support + + +---------+ + | Name | Relationship | Address | Phone | + + +---------+ + | Beth Mas | ECON | Unknown | | + + +---------+ + Care Team Providers + +------+ + | Care Odd Job Laborer Name | Role | Phone | [...] | | | | and | | [address] | | | | | inflammatory | | [address] | | | | | reaction | | [address] [place], | | | | | due to | | [place] | | | | | internal | | [address] | | | | | right knee | | Phone: | | | | | prosthesis, | | [phone] | | | | | initial | | Fax: | | | | | encounter | | [phone] | +--------+--------+ + + + + Encounter [...] | | | [address] | [facility] | joint, subsequent | | | | Loop [facility]ician's | [place], [place] | encounter (Primary | | | | [place], [address] floor | [address] | Dx); longterm | | | | [place], [place] | [phone] | (current) use of | | | | [address] | | antibiotics | | | | [phone] | | | +--------+---------+ + + + [...] ), Disp: 30 tablet, Rfl: 0 antiox. no.[id number] (I-CAPS) 280-10-2 mg oral capsule, Take 1 [...] Pt has no other follow-up needed at [facility] at this time so will contact his PCP to see if continued prescribing of cephalexin can be managed locally Abril Shields MD Infectious Diseases documented in this encounter Plan of Treatment Not on filedocumented as of this encounter Visit Diagnoses + + | Diagnosis | + + | Infection of prosthetic knee joint, subsequent encounter - Primary | + + | longterm (current) use of antibiotics | + + documented in this encounter"
--- OUTSIDE RECORDS SUMMARY | ~2020-07-26 | XMS | Encounter Summary ---
Demographics + + + | Address | [address] | | | [place] [address] | + + + | Home Phone [...] Team Providers + +------+ + | [facility] Manager Name | Role | Phone | + +------+ + | Gilberto Estrada | PCP | | | MD | | | + +------+ + Reason for Referral Home Health Care (Routine) + + + + + + + | Status | Reason | Specialty | Diagnoses / | Referred By | Referred To | | | | | Procedures | Contact | Contact | + + + + + + + | Pending | Specialty | Home Health | Diagnoses | Trey, | | | Review | Services | Services | Ischemic | MD Wyatt | | | | Required | | cardiomyopat | [address] | | | | | | [address] | [address] | | | | | | | [facility] [place] | | | | | | | [address] | | | | | | | Phone: | | | | | | | [phone] | | | | | | | Fax: | | | | | | | [phone] | | + + + + + + + Evaluate & Treat (Routine) + + + + + + + | Status | Reason | Specialty | Diagnoses / | Referred By | Referred To | | | | | Procedures | Contact | Contact | + + + + + + + | Pending | Specialty | Cardiology | Diagnoses | Trey, | Sharlene, | | Review | Services | | Coronary | MD Wyatt | Sebas Lopez MD | | | Required | | artery | [address] | [address] | | | | | disease | [address] | [address] | | | | | involving | [facility] [place] | [place] [address] | | | | | [place] | [address] | [place] | | | | | coronary | Phone: | [phone] Phone: | | | | | artery of | [phone] | [phone] | | | | | [place] heart | Fax: | Fax: | | | | | without | [phone] | [phone] | | | | | angina | | | | | | | pectoris | | | | | | | Acute on | | | | | | | chronic | | | | | | | systolic | | | | | | | heart | | | | | | | failure | | | | | | | (HCC) | | | + + + + + + + Encounter Details +--------+ + + + + | Date | Type | Department | Care Team | Description | +--------+ + + + + | 07/18/ | Hospital | [facility] | Stephane, | Acute on chronic | | 2019 - | Encounter | [facility] | MD Corinne | systolic heart | | | | CARE FLOOR [address] | [address] | failure (HCC) | | 07/25/ | | [address] | [place] [address] | (Primary Dx); | | 2020 | | [place], [place] | [phone] | Coronary artery | | | | [address] | | disease involving | | | | [phone] | Gordon Bragg MD | [place] coronary | | | | | [address] | artery of [place] | | | | | [place] [address] | heart without angina | | | | | [phone] | pectoris; Cardiac | | | | | | pacemaker in situ; | | | | | Wyatt Yang MD | Chronic renal | | | | | [address] | insufficiency, stage | | | | | [place] [address] | 4 (severe) (HCC); | | | | | [phone] | COVID-19; Heart | | | | [...] | | | | | | tachycardia) ([facility]); | | | | | | Nonsustained | | | | | | ventricular | | | | | | tachycardia ([facility]); | | | | | [...] cardiomyopathy | | | | | | (HCC); Chronic | | | | | | systolic heart | | | | | | failure ([facility]); SSS | | | | | | (sick sinus | | | | | | syndrome) ([facility]); | | | | | | COVID-19 with | | | | | | multiple | | | | | | comorbidities | +--------+ + + + + Social [...] + documented in this encounter Discharge Summaries Wyatt Yang MD - 07/25/2020 9:03 AM PDT [facility]: Hospitalist Discharge Summary Date of Admission: 07/18/2020 Date of Discharge: 07/25/2020 Discharge Provider: Wyatt Yang MD Treatment Team: Mikal Calix MD Discharge Diagnoses: Principal Problem: Shock Active Problems: CAD (coronary artery disease) Diabetes mellitus, type II - ORAL Control GERD (gastroesophageal reflux disease) Hypertension Atrial fibrillation Heart block Hyperlipidemia Infection of prosthetic right knee joint Ischemic cardiomyopathy Systolic heart failure Pacemaker Coronary artery disease involving coronary bypass graft without angina pectoris COVID-19 Cardiac pacemaker in situ - [employer] Resolved Problems: * No resolved hospital problems. * BRIEF HISTORY OF PRESENTATION: Duane Mas is a 80 y.o. male who history of chronic systolic heart failure diabetes hypertension history of cardiac arrhythmias status post dual-chamber pacemaker/ICD who pres ented to [facility] with complaints of not feeling well was found to be COVID- 19 positive. He had a fall at home but no syncope. He was very hypoglycemic blood sugar in the 40s. Patient was hypotensive requiring Levophed. Patient transferred to [facility] and wa s admitted to the ICU. Patient was weaned off pressors, no bacterial infection identified. Echo showed drop in ejection fraction to 25%. Cardiology was consulted they recommended ou tpatient ischemic work-up. Patient also had acute kidney injury which improved with conserv ative started on Entresto and tolerated that well. Patient was advised to reduce the dose of glipizide to 5 mg daily (was taking 20 twice russell y prior to admission). Patient and his was also advised on less stringent blood sugar control. With his comorbidities and age it is reasonable to maintain A1c between 7 and 8 an d blood sugars between 102 100 is considered acceptable. Medication changes Reduced the dose of glipizide to 5 mg daily before breakfast Started Entresto 1 tablet twice daily Reduced torsemide to 20 mg daily Increased Toprol-XL 50 mg daily Reduced Coumadin to 2 mg daily (had supratherapeutic INR) Aspirin 81 mg daily was added Lipitor 20 mg added Discontinue niacin DISCHARGE EXAM Vital Signs: BP 103/60 | Pulse 107 | Temp 37.4 C (99.4 F) (Axillary) | Resp 16 | Ht 1.702 m (5' 7") | Wt 76.6 kg (168 lb 14.4 oz) | SpO2 94% | BMI 26.45 kg/m Physical Exam General appearance: alert, appears stated age and cooperative Eyes: conjunctivae/corneas clear. PERRL, EOM's intact. Fundi benign. Neck: no JVD Lungs: clear to auscultation bilaterally Heart: regular rate and rhythm, S1, S2 normal, no murmur, click, rub or gallop Abdomen: soft, non-tender; bowel sounds normal; no masses, no organomegaly DATA Recent Labs Lab 07/25/20 0507/24/20 0607/23/20 0529 07/22/20 0706 07/21/20 0640 07/20/20 0553 WBC 11.24* 9.21 8.06 7.24 7.67 9.63 HGB 12.3* 11.5* 11.4* 11.4* 12.0* 12.4* HCT 36.5* 34.5* 34.4* 34.3* 36.6* 36.8* PLT 251 211 175 147* 129* 131* MONOPCT -- -- -- 11.00 12.60 11.40 Recent Labs Lab 07/25/20 0507/24/20 0607/23/20 0507/18/20 1737 NA 141 139 140 < > 133* K 4.3 4.3 4.3 < > 4.2 CL 108 108 109 < > 97* CO2 27 27 23 < > 33* BUN 18 14 16 < > 28* CALCIUM 7.7* 7.8* 7.7* < > 7.6* ALKPHOS 36 -- -- -- 37 ALT 40 -- -- -- 41 AST 55* -- -- -- 140* < > = values in this interval not displayed. Phosphorus: Lab Results Component Value Date PHOS 2.4 07/19/2020 No results for input(s): LABALBU in the last 168 hours. Recent Labs Lab 07/23/20 0507/22/20 0707/21/20 0640 MG 2.0 2.1 2.3 No results for input(s): AMYLASE in the last 168 hours. No results for input(s): PHART, PO2ART, TSN6SRS, Q3OYONPF, BEART in the last 168 hours. Recent Labs Lab 07/25/20 0507/24/20 0607/23/20 0507/18/20 1737 INR 3.6 3.6 4.2 < > 2.6 PTT -- -- -- -- 54* < > = values in this interval not displayed. Recent Labs Lab 07/20/20 0553 07/19/20 1603 TSH 0.372* 0.249* No results for input(s): TROPONINT in the last 168 hours. Invalid input(s): CKTOTAL, TROPONINI, CKMBINDEX Radiology No results found. Disposition: home Condition: Stable Code Status: Full Code Discharge Procedure Orders Ambulatory referral to [facility] Cardiology Referral Priority: Routine Referral Type: Evaluate & Treat Referral Reason: Specialty Services Required Referred to Provider: SEBAS VICKERS Number of Visits Requested: 1 Referral to Home Health Referral Priority: Routine Referral Type: Home Health Care Referral Reason: Specialty Services Required Requested Specialty: Home Health Services Number of Visits Requested: 1 Enroll in COVID-19 Home Monitoring Follow up: Sebas Vickers MD [address] [place] [address] In 2 weeks [facility] [address] [place] [address] Call Referral sent on 07/25. Please call to set up services for Physical Therapy and Nursing care . Gilberto Estrada MD [address] [facility] [address] In 1 week Discharge Medications New Medications Details aspirin 81 mg chewable tablet Chew and swallow 1 tablet Daily. atorvaSTATin 20 mg tablet Take 1 tablet by mouth nightly. aka: LIPITOR sacubitril-valsartan 24-26 mg per tablet Take 1 tablet by mouth 2 times daily. aka: ENTRESTO Changed Medications Details glipiZIDE 5 mg tablet Take 1 tablet by mouth every morning (before breakfast). What changed: medication strength how much to take when to take this aka: GLUCOTROL metoprolol succinate 50 mg 24 hr tablet Take 1 tablet by mouth Daily. What changed: medication strength how much to take aka: TOPROL-XL torsemide 20 mg tablet Take 1 tablet by mouth Daily. What changed: when to take this additional instructions aka: DEMADEX warfarin 2 mg tablet Take 1 tablet by mouth Daily. What changed: medication strength how much to take aka: COUMADIN Unchanged Medications Details acetaminophen-codeine 300-30 MG per tablet Take 1 tablet by mouth Twice daily as needed for Pain . aka: TYLENOL #3 cephalexin 500 mg capsule Take 500 mg by mouth 2 times daily. aka: KEFLEX cholecalciferol 50 mcg (2,000 units) tablet Take 50 mcg by mouth Daily. aka: VITAMIN D-3 EYE MULTIVITAMIN/LUTEIN Tabs Take 1 tablet by mouth Daily. fish oil 1,000 mg capsule Take 1,000 mg by mouth Daily. folic acid 400 MCG tablet Take 400 mcg by mouth Daily. aka: FOLVITE hydroxychloroquine 200 mg tablet Take 200 mg by mouth Daily. aka: PLAQUENIL magnesium oxide 400 mg tablet Take 400 mg by mouth Daily. aka: MAG-OX SITagliptin 50 MG tablet Take 50 mg by mouth Daily. aka: DANEUVIA Discontinued Medications azithromycin 250 mg tablet aka: ZITHROMAX niacin 500 mg tablet Discharge took 35 minutes, to include final examination, discussion of admission, and prepa ration of prescriptions, instructions for on-going care, follow-up and documentation of disc harge summary. Wyatt Yang MD 07/25/2020 10:33 AM PDT documented in this encounter Discharge Instructions Instructions Wyatt Yang MD - 07/25/2020Monitor Blood sugar twice a day Target Blood sugar 90 to 200 If BS drop below 90 discontinue glipizide AttachmentsThe following attachments cannot be sent through Care Everywhere.COVID-19 HOME I NSTRUCTIONS FOR AVSCOVID-19 PATIENT HOME MONITORING DISCHARGE EDUCATION TIP SHEETCOVID-19 ROCAEL [facility] HOME MONITORING VITAL SIGN TRACKER FORMCOVID-19 PATIENT ZOOM SETUP TIP SHEETdocumented in this encounter Medications at Time of [...] + + + +---------+ + + | aspirin 81 mg | Chew and swallow 1 | 30 | 1 | 07/25/20 | | | chewable tablet | tablet Daily. | tablet | | 20 | | + + + +---------+ + + | atorvaSTATin | Take 1 tablet by | 90 | 1 | 07/25/20 | | | (LIPITOR) 20 mg | mouth nightly. | tablet | | 20 | | | tablet | | | | | | + + + +---------+ + + | cephalexin | Take 500 mg by mouth | | 0 | | | | (KEFLEX) 500 mg | 2 times daily. | | | | | | capsule | | | | | | + + + +---------+ + + | cholecalciferol | Take 50 mcg by mouth | | 0 | | | | (VITAMIN D-3) 50 mcg | Daily. | | | | | | (2,000 units) | | | | | | | tablet | | | | | | + + + +---------+ + + | fish oil 1,000 mg | Take 1,000 mg by | | 0 | | | | capsule | mouth Daily. | | | | | + + + +---------+ + + | folic acid | Take 400 mcg by | | 0 | | | | (FOLVITE) 400 MCG | mouth Daily. | | | | | | tablet | | | | | | + + + +---------+ + + | glipiZIDE | Take 1 tablet by | 30 | 1 | 07/25/20 | | | (GLUCOTROL) 5 mg | mouth every morning | tablet | | 20 | | | tablet | (before breakfast). | | | | | + + + +---------+ + + | hydroxychloroquine | Take 200 mg by mouth | | 0 | | | | (PLAQUENIL) 200 mg | Daily. [...] + +---------+ + + | metoprolol | Take 1 tablet by | 90 | 1 | 07/25/20 | | | succinate | mouth Daily. | tablet | | 20 | | | (TOPROL-XL) 50 mg 24 | | | | | | | hr tablet | | | | | | + + + +---------+ + + | Multiple | Take 1 tablet by | | 0 | | | | Vitamins-Minerals | mouth Daily. | | | | | | (EYE | | | | | | | MULTIVITAMIN/LUTEIN) | | | | | | | TABS | | | | | | + + + +---------+ + + | | Take 1 tablet by | 60 | 0 | 07/25/20 | | | sacubitril-valsartan | mouth 2 times daily. | tablet | | 20 | | | (ENTRESTO) 24-26 mg | | | | | | | per tablet | | | | | | + + + +---------+ + + | SITagliptin | Take 50 mg by mouth | | 0 | | | | (JANUVIA) 50 MG | Daily. | | | | | | tablet | | | | | | + + + +---------+ + + | torsemide | Take 1 tablet by | 30 | 1 | 07/25/20 | | | (DEMADEX) 20 mg | mouth Daily. | tablet | | 20 | | | tablet | | | | | | + + + +---------+ + + | warfarin | Take 1 tablet by | 30 | 1 | 07/25/20 | | | (COUMADIN) 2 mg | mouth Daily. | tablet | | 20 | | | tablet | | | | | | + + + +---------+ + + documented as of this encounter Progress Notes Vero Arias RN - 07/25/2020 3:16 PM PDTDischarge information reviewed with pt and . IVs removed. Prescritpion sent with pt. Pt and decline COVID home monitoring at this t nisha. Pt and decline having any further concerns or questions. Pt escorted to vehicle vi a wheelchair. Vero Arias RN 3:1 6 PM Gordon Valdez MD - 07/24/2020 11:01 AM PDTFormatting of this note might be differen t from the original. Service: Hospitalist Progress Note Pt: Duane Mas AGE/SEX: 80 y.o. male ROOM: 8121/8121-01 : 1940 PCP: Erin Forrester MD ADMIT DATE: 07/18/2020 TODAY'S DATE: 07/24/2020 Hospital Day/Hospital Course: LOS: 6 days Per ICU 80 y.o.malewith significant past medical history of DM2, CKD 4, CAD, 2V CABG 2000, SV t o LAD and SV to PDA, SSS s/p medtronic dual chamber PPM/ICD, Ischemic cardiomyopathy,Sever e sigmoid diverticulosiswho presents to [facility] after an episode of fall.Patient was trying to go to bed on07/15when he slid out of his chair and fell down.Apparentl y he was down on the floor for around 9 hours since his was in another room she could n ot hear him.He was lying on the left side on his shoulder.He did not hit his head. Occasionally he went in and out but unable to tell me if he had a complete syncopal episod e.This fall was likely mechanical and he felt dizzy before having this fall.He had n o nausea vomiting patient was also tested positive for COVID in May 2020.He and his w mike attended a at this time and his did not feel good hence both got tested and both were positive for COVID-19.Eventually the patient was found in the morning after w [facility] he presented to the emergency roomon 07/16.He was initially found to be hypoglycem ic with a blood sugar of 40 hence he received D50. initially when patient was admitted to the hospital CK was elevated [id number].Hence kassy ent also received fluid resuscitation for rhabdomyolysis and was kept on maintenance fluid a t 125 cc/h. On 07/17,his CK worsened [id number].His troponin was only 0.014.Also he c ontinued to have soft blood pressures.Hence he was transferred to ICU in [facility] . On 07/18,he was also started on [id number] hypertension.Seems patient was al so continued on torsemide 20 mg twice a day and metoprolol 5 mg IV every 6 hours. TTEdone on07/18/20 Mild dilated left ventricular cavity LV systolic function is severely reduced with EF of 25 to 30%.Severe hypokinesis of all segments.Akinesis of the basal inferior and basal inferolateral segments near akinesis of the mid inferoseptal and apical segments.Grade 1 diastolic dysfunction with normal left atrial pressure.Normal RV size and function. Mild MR.IVC respiratory change in dimension greater than 50% and appears normal Other pertinent labson 07/17,[id number],INR 3.3,creatinine 1.89,hemoglobin 13.5,W BC 11.7,ESR 78. 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 Given his significant cardiac history, TTEshowing severe hypokinesis and EF of 25 to 30%, new pressor requirement,[facility] On [facility] to the [facility] patient is awake alert and oriented x3.He is comfortably resting in bed.Systolic blood pressure 160 heart rate within 70.His main complaint was left shoulder pain." ICU Timeline: 07/18- Admitted to ICU, on pressors. Started on zosyn for empiric coverage due to shock s moss. COVID-19 positive. On 2L NC. SUBJECTIVE: Patient seen and examine. He is awake and alert and talking to me. Not in any kind of dis tress. No chest pain, nausea or vomiting or dizziness or lightheadedness. Scheduled Medications: [id number] mouthwash (ADS admixture) 15 mL Swish & Spit Q4H aspirin 81 mg Oral Daily atorvaSTATin 20 mg Oral Nightly cephalexin 500 mg Oral BID cholecalciferol 2,000 Units Oral Daily docusate sodium 100 mg Oral BID famotidine 20 mg Oral Q48H insulin lispro 0-6 Units Subcutaneous 4x Daily AC and HS metoprolol succinate 50 mg Oral Daily sacubitril-valsartan 1 tablet Oral BID Continuous Infusions dextrose 10% PRN Medications acetaminophen, bisacodyl, Hypoglycemia Management AND POCT Glucose AND dextrose A ND dextrose 10%, ondansetron, polyethylene glycol Allergy: Allergies Allergen Reactions Omeprazole Other (See Comments) Sulfa Antibiotics Rash and Hives OBJECTIVE: Vitals: Patient Vitals for the past 24 hrs: BP Temp Temp src Pulse Resp SpO2 07/24/20 1020 121/62 07/24/20 0730 116/60 37.2 C (99 F) Oral 106 16 94 % 07/24/20 0332 127/58 37.2 C (99 F) Oral 96 16 93 % 07/23/20 2330 139/64 37.6 C (99.6 F) Oral 118 18 94 % 07/23/202003 128/71 37.2 C (99 F) Oral 109 18 93 % 07/23/20 1525 125/65 37.1 C (98.8 F) Oral 95 20 94 % 07/23/20 1129 129/62 36.8 C (98.3 F) Oral 91 20 94 % I&O Detailed Table: Intake/Output Summary (Last 24 hours) at 07/24/2020 1101 Last data filed at 07/24/2020 0331 Gross per 24 hour Intake 400 ml Output 800 ml Net -400 ml Patient Vitals for the past 96 hrs: Weight 07/21/20 0316 77.8 kg (171 lb 9.6 oz) Hemodynamics Last 24hrs: Physical Examination: Constitutional: Alert and talking to me. Not in any kind of distress. HEENT: Neck supple, no JVD, non icteric sclera. Cardiovascular: Normal rate, S1 and S2 Pulmonary/Chest: Clear bilateral. Abdominal: Soft.NT Extremeties/Musculoskeletal: Normal range of motion.exhibits no tenderness. Left arm swell ing and bruising. Neurological: Alert and oriented to person, place, and time. Skin: Skin is warm and dry. No rash noted. No erythema. No pallor. Psychiatric: Has a normal mood and affect. Behavior is normal. Judgment normal. Not suicida l LABS: Recent Labs Lab 07/24/20 0607/23/20 0529 07/22/20 0707/21/20 0640 07/20/20 0553 WBC 9.21 8.06 7.24 7.67 9.63 HGB 11.5* 11.4* 11.4* 12.0* 12.4* HCT 34.5* 34.4* 34.3* 36.6* 36.8* PLT 211 175 147* 129* 131* MONOPCT -- -- 11.00 12.60 11.40 Recent Labs Lab 07/24/20 0606 07/23/20 0529 07/22/20 0706 07/18/20 1737 NA 139 140 138 < > 133* K 4.3 4.3 3.9 < > 4.2 CL 108 109 107 < > 97* CO2 27 23 26 < > 33* BUN 14 16 20 < > 28* CALCIUM 7.8* 7.7* 7.2* < > 7.6* ALKPHOS -- -- -- -- 37 ALT -- -- -- -- 41 AST -- -- -- -- 140* < > = values in this interval not displayed. Phosphorus: Lab Results Component Value Date PHOS 2.4 07/19/2020 Recent Labs Lab 07/23/20 0529 07/22/20 0706 07/21/20 0640 MG 2.0 2.1 2.3 Recent Labs Lab 07/24/20 0606 07/23/20 0529 07/22/20 0706 07/18/20 1737 INR 3.6 4.2 3.9 < > 2.6 PTT -- -- -- -- 54* < > = values in this interval not displayed. Recent Labs Lab 07/20/20 0553 07/19/20 1603 TSH 0.372* 0.249* Diagnostic Imaging: Impressions only: Recent Results (from the past 360 hour(s)) XR Chest AP Portable Impression Minimal linear bibasilar opacities to likely resent atelectasis and/or airspace disease. Question tiny bilateral pleural effusions. Final Report Signed by: Negro Palmer Chet Sign Date/Time: 07/18/2020 7:33 PM XR Shoulder Left 2 + Vw Impression No evidence for fracture. Moderate acromioclavicular joint degenerative change. Final Report Signed by: Negro Palmer Chet Sign Date/Time: 07/18/2020 7:32 PM PROBLEM LIST Principal Problem: Shock Active Problems: CAD (coronary artery disease) Diabetes mellitus, type II - ORAL Control GERD (gastroesophageal reflux disease) Hypertension Atrial fibrillation Heart block Hyperlipidemia Infection of prosthetic right knee joint Ischemic cardiomyopathy Systolic heart failure Pacemaker Coronary artery disease involving coronary bypass graft without angina pectoris COVID-19 Cardiac pacemaker in situ - [employer] Resolved Problems: * No resolved hospital problems. * ASSESSMENT & PLAN 80 y.o.malewith significant past medical history of DM2, CKD 4, CAD, 2V CABG 2000, SV t o LAD and SV to PDA, SSS s/p medtronic dual chamber PPM/ICD, Ischemic cardiomyopathy,Sever e sigmoid diverticulosiswho presents to [facility] after an episode of fall. Principal Problem: Shock He is awake and alert and talking to me. Blood pressure is improving. His cardiogenic sh ock has resolved. He was in cardiogenic shock. That had resolved. No pressors at this chris e. Patient was not septic when came to the hospital. CAD (coronary artery disease) history of paroxysmal atrial fibrillation According to the cardiology angiogram should be done but as outpatient since patient not h aving any anginal symptoms. Will have a follow-up as outpatient.. Stable. After discussion with nephrology and they are thinking that if angiogram is needed we shoul d proceed with angiogram. He had mildly elevated troponin. INR is still high. Need to sta rt on warfarin probably on the day of discharge. Diabetes mellitus, type II - ORAL Control Type 2 diabetes is appropriately controlled. GERD (gastroesophageal reflux disease) On ppi Rhabdomyolysis: CPK down to 792. Hypertension along with paroxysmal atrial fibrillation Along with history of atrial fibrillation . Already on warfarin. Need To restart on anti coagulation on the day of discharge. Heart block Following up with the cardiology. He had a pacemaker. Also had hyperlipidemia Infection of prosthetic right knee joint On chronic Keflex Acute renal failure: More likely volume depletion. I do not think that he is in congestive heart failure. Kid ramiro functions are actually getting better. ischemic cardiomyopathy His dry weight is unknown. Along with chronic systolic heart failure. Seems like well co mpensated. Patient is not in heart failure at this time. Most recent echocardiogram shows ejection fraction of 20 to 25% seems like compensated. Started on Entresto on July 24. Will monitor kidney functions and potassium. COVID-19 He is having a fever. I doubt it is related to the COVID. He was diagnosed with COVID in May. He is status post cardiac pacemaker in situ - [employer] will be need to upgrade to the AICD as outpatient Resolved Problems: * No resolved hospital problems. * Disposition: DC plan probably tomorrow if you are not planning to do angiogram. Communication thread: I called Beth platt # [phone] on July 20 at 1208 and answered all the question I called her on July 21 at 1140 and no answer I called on July 22 at 1040 4 in the morning told her about the plan about kidney func tion and angiogram Called her on July 23 at 942. Told her about the plan. On July 24 at 11:06 AM. All her possible discharge plan tomorrow. Gordon Bragg MD, FACP 07/24/2020 11:01 AM PDT Portions of this chart may have been copied from previous notes for continuity of care purp ose Portions of this chart may have been created with [employer] voice recognition software. Occasi onal wrong-word or sound-alike substitutions may have occurred due to the inherent olson itations of voice recognition software. Please read the chart carefully and recognize, using context, where these substitutions have occurred. ehr, Sebas Lopez MD - 0 07/24/2020 8:02 AM PDT [facility]: Cardiology Progress Note Date of Admission: 07/18/2020 BRIEF CLINICAL HISTORY: 80 y.o. 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 He presented to [facility] 07/16/20 after fall vs sync ope with down time of reportedly 9 hours, found to have rhabdomyolysis CK 1504, acute kidney injury creatinine 1.98, hypoglycemia glum reported 40 (EMS). He does not remember what hap pened, whether he fell or lost consciousness. He reports he just woke up on the floor. He was not found by his for several hours. His initial troponin 0.014. He was also febril e, with oral lesions/erythematous posterior pharynx and COVID19+, although it appears that h e contracted this illness last month after attending a . He was ultimately transferre d to ICU for persistent hypotension requiring IV pressors. His echocardiogram demonstrated a drop in LV systolic function to 25-30% with wall motion abnormalities. [place] [facility] [place]. Telemetry strips from [facility] showed frequent PVC s and nonsustained VT. Upon presentation [place] [facility] his troponin was elevated, 1.265 (now trending down, 0.815) and C K 2937 insistent with rhabdomyolysis. Creatinine 1.95. His BNP was elevated 772 but no signi ficant pulmonary edema or effusion on CXR. Mild thrombocytopenia, PLT 146. INR therapeutic 2 .6. No ECG for review. He is currently in the ICU, transitioned off IV pressors yesterday, S BP 100-140 mmHg today. He is tachycardic, heart rate ~ 100 bpm with appearance of sinus rhyt hm by telemetry with first degree AV block and RBBB. Cardiology has been consulted for furth er evaluation and management due to findings on outside echocardiogram. Review of telemetr y demonstrates frequent ventricular ectopy, nonsustained ventricular tachycardia. He has been noncompliant with cardiology follow-up, he has not been seen in cardiology clin ic since February 2017. He was last seen in EP clinic (his only visit there) in December,, he was followed for known elevated capture threshold on his RV pacemaker lead, present since plantation. His last remote pacemaker interrogation was March 2019. Multiple attempts to co ntact the patient to re-establish have been made by our office since. EVENTS OVERNIGHT: He denies current or recent chest pain/pressure, shortness of breath, or thopnea, palpitations, lightheadedness. Coughing up thick, light brownish sputum. Renal fu nction has improved. Past Medical History: Diagnosis Date Ankylosing spondylitis ([facility]) Arthritis Beta Blockers - Daily Use 07/22/2017 CAD (coronary artery disease) severe multivessel CAD Cardiac pacemaker in situ - MEDTRONIC 10/24/2016 Medtronic - Placed Sep 2016 for sick sinus syndrome Chronic kidney disease Chronic renal insufficiency, stage 4 (severe) ([facility]) 02/10/2019 Chronic sinusitis Coronary artery disease involving autologous artery coronary bypass graft, angina prese nce unspecified 10/31/2015 SVG to the RCA occluded Deep vein thrombosis (DVT) (HCC) Diabetes mellitus type II Diverticulosis Dysphagia GERD (gastroesophageal reflux disease) Hyperlipidemia Hypertension Ischemic cardiomyopathy [facility] current use of anticoagulant - COUMADIN 07/22/2017 HX VTE Neuromuscular disorder (HCC) Old myocardial infarction SEUN (obstructive sleep apnea) 07/22/2017 UNTREATED SEUN. STOP BANG Score 6 (High risk SEUN), does not want a sleep study, would not a ccept CPAP if prescribed. Peripheral neuropathy S/P CABG x 2 SVG to the LAD was patent on cardiac cath 2016 Sick sinus syndrome (HCC) s/p pacemaker Systolic heart failure (HCC) Unspecified visual disturbance Past Surgical History: Procedure Laterality Date ABDOMEN SURGERY APPENDECTOMY CARDIAC CATHERIZATION COLONOSCOPY 2014 COLONOSCOPY CORONARY ANGIOPLASTY WITH STENT PLACEMENT CORONARY ARTERY BYPASS GRAFT CORONARY ARTERY BYPASS GRAFT EYE SURGERY KNEE SURGERY Right 09/07/2013 Procedure: KNEE - TOTAL; Surgeon: Drew Hurst MD; Location: [facility]; Service : Orthopedics; Laterality: Right; alisha component.br OTHER SURGICAL HISTORY CATARACT EXTRACTION OTHER SURGICAL HISTORY PHRENIC NERVE PACEMAKER IMPLANTATION PACEMAKER INSERTION Medtronic SINUS SURGERY TONSILLECTOMY AND ADENOIDECTOMY UPPER GASTROINTESTINAL ENDOSCOPY N/A 07/31/2017 Procedure: EGD with Dilation; Surgeon: Willow Colin MD; Location: [facility] UN[facility] UPPER GASTROINTESTINAL ENDOSCOPY N/A 02/10/2019 Procedure: EGD WITH DILITATION; Surgeon: Willow Colin MD; Location: [facility] UNIT VASECTOMY Allergies Allergen Reactions Omeprazole Other (See Comments) Sulfa Antibiotics Rash and Hives Medications Prior to Admission Medication Sig Dispense Refill acetaminophen-codeine (TYLENOL #3) 300-30 MG per tablet Take 1 tablet by mouth Twice d aily as needed for Pain . [] azithromycin (ZITHROMAX) 250 mg tablet Take 250 mg by mouth Daily 4 days only . cephalexin (KEFLEX) 500 mg capsule Take 500 mg by mouth 2 times daily. cholecalciferol (VITAMIN D-3) 50 mcg (2,000 units) tablet Take 50 mcg by mouth Daily. fish oil 1,000 mg capsule Take 1,000 mg by mouth Daily. folic acid (FOLVITE) 400 MCG tablet Take 400 mcg by mouth Daily. glipiZIDE (GLUCOTROL) 10 MG tablet Take 20 mg by mouth 2 times daily (before meals) . hydroxychloroquine (PLAQUENIL) 200 mg tablet Take 200 mg by mouth Daily. magnesium oxide (MAG-OX) 400 mg tablet Take 400 mg by mouth Daily. metoprolol succinate (TOPROL-XL) 25 mg 24 hr tablet Take 25 mg by mouth Daily. Multiple Vitamins-Minerals (EYE MULTIVITAMIN/LUTEIN) TABS Take 1 tablet by mouth Daily. niacin 500 mg tablet Take 500 mg by mouth 3 times daily (with meals) . SITagliptin (JANUVIA) 50 MG tablet Take 50 mg by mouth Daily. torsemide (DEMADEX) 20 mg tablet Take 20 mg by mouth 2 times daily May take 40 mg BID i f needed. warfarin (COUMADIN) 2.5 mg tablet Take 2.5 mg by mouth Daily . Scheduled Medications [id number] mouthwash (ADS admixture) 15 mL Swish & Spit Q4H aspirin 81 mg Oral Daily atorvaSTATin 20 mg Oral Nightly cephalexin 500 mg Oral BID cholecalciferol 2,000 Units Oral Daily docusate sodium 100 mg Oral BID famotidine 20 mg Oral Q48H insulin lispro 0-6 Units Subcutaneous 4x Daily AC and HS metoprolol succinate 50 mg Oral Daily Continuous Infusions dextrose 10% PRN Medications acetaminophen, bisacodyl, Hypoglycemia Management AND POCT Glucose AND dextrose A ND dextrose 10%, ondansetron, polyethylene glycol PHYSICAL EXAM Vital Signs: BP 116/60 | Pulse 106 | Temp 37.2 C (99 F) (Oral) | Resp 16 | Ht 1.702 m (5' 7") | Wt 77.8 kg (171 lb 9.6 oz) | SpO2 94% | BMI 26.88 kg/m TELEMETRY: NSR, frequent PVCs, ventricular couplets, triplets I/O yesterday: 461 / 700, net +2202 since admission GENERAL: Chronically ill-appearing elderly male, in no distress. Appears approx imately stated age. HEENT: Normocephalic, atraumatic. Caitlyn-oral ulcers, thrush of tongue EYES: PERRL, sclerae anicteric, no xanthelsasmas MOUTH: Oral mucosae moist, dentition adequate, no lesions noted NECK: No JVD, lymphadenopathy, thyromegaly, bruits. Carotid pulses are 2+ bilaterally LUNGS: Left basilar rales, no rhonchi or wheezing noted, respirations unlabored HEART: Left-sided pacemaker pocket appears normal, well-healed sternotomy incision. Nondis placed PMI, mildly tachycardic rate, regular rhythm, S1, S2 normal. No murmurs, rubs or gal lops noted. ABDOMEN: Soft, nontender, no organomegaly, masses or bruits. Bowel sounds are normal in a ll 4 quadrants. The abdominal aortic pulsation is not palpable. EXTREMITIES: Left upper extremity ecchymoses and edema. Radial pulses 2+ bilaterally. Femo ral pulses are 2+ bilaterally without bruits. DP and PT pulses are 2+ bilaterally. SKIN: Warm and dry, capillary refill is normal, marked bilateral pretibial hyperpigmentati on with lknt-tyfpz-yune desquamation. NEUROLOGIC: Awake, alert and oriented x 3. No focal motor deficits. PSYCHIATRIC: Appropriate, affect appears normal DATA Recent Labs Lab 07/24/20 0606 07/23/20 0529 07/22/20 0706 07/21/20 0640 07/20/20 1607 07/20/20 0553 07/19/20 1603 07/19/20 0423 07/19/20 0422 07/18/20 1737 NA 139 140 138 139 -- 137 -- -- 142 -- 133* K 4.3 4.3 3.9 3.9 -- 3.9 -- -- 3.8 -- 4.2 CL 108 109 107 106 -- 102 -- -- 104 -- 97* CO2 27 23 26 29 -- 29 -- -- 28 -- 33* BUN 14 16 20 26* -- 28* -- -- 26* -- 28* CREA 1.40* 1.30 1.35* 1.66* -- 2.08* -- -- 1.81* -- 1.95* EGFR 49* 53* 51* 40* -- 31* -- -- 36* -- 33* GLU 141* 124* 106* 79 -- 88 -- -- 80 -- 132* MG -- 2.0 2.1 2.3 -- 2.3 -- -- 2.1 -- 1.9 CALCIUM 7.8* 7.7* 7.2* 7.5* -- 7.9* -- -- 6.6* -- 7.6* PHOS -- -- -- -- -- -- -- -- 2.4 -- 2.5 AST -- -- -- -- -- -- -- -- -- -- 140* ALT -- -- -- -- -- -- -- -- -- -- 41 ALKPHOS -- -- -- -- -- -- -- -- -- -- 37 ALBUMIN -- -- -- -- -- -- -- -- -- -- 3.2* BNP -- -- -- -- -- -- -- -- -- -- 772.50* CK -- 792* -- 1,270* 1,558* 1,876* 2,359* -- -- 2,174* 2,937* CKMB -- -- -- -- -- -- -- -- -- 2.6 3.0 TSH -- -- -- -- -- 0.372* 0.249* < > -- -- -- CHOL -- -- -- -- -- 94 -- -- -- -- -- HDL -- -- -- -- -- 19* -- -- -- -- -- LDL -- -- -- -- -- 38 -- -- -- -- -- < > = values in this interval not displayed. Recent Labs Lab 07/23/20 0529 07/21/20 0640 07/20/20 1607 07/20/20 0553 07/19/20 1603 07/19/20 0422 07/18/20 1737 TROPONIN -- -- -- -- -- 0.815* 1.265* CK 792* 1,270* 1,558* 1,876* 2,359* 2,174* 2,937* CKMB -- -- -- -- -- 2.6 3.0 Free T4 1.3 ECHO (07/18/20 ([facility]): Mildly dilated left ventricular cavity. Left ventricular systolic function is severely reduced. The ejection fraction is visually e stimated at 25-30%. There is severe hypokinesis of almost all segments, with akinesis of the basal inferior and basal inferolateral segments, near akinesis of the mid inferoseptal and apical septal segments, b ut fairly normal contractility of the basal anteroseptal segment. Grade I diastolic dysfunction with normal left atrial pressure. Normal right ventricular size and function. Mild mitral regurgitation. No prior study available for visual comparison. PCXR (07/18/20): Minimal linear bibasilar opacities to likely resent atelectasis and/or airspace disease. Q uestion tiny bilateral pleural effusions. Echo (08/06/17): 1. The left ventricle cavity size is [...] valves. 5. There is no pericardial effusion. Lexiscan Cardiolite Stress test: (10/10/15): 1. Abnormal study. Mild distal inferior and apical ischemia. LVEF 53 % 2. Stress ECG: Negative for Lexiscan-induced ischemia. 3. No arrhythmias detected. 4. No Lexiscan induced chest pain. 5. No previous test for comparison. Cardiac catheterization (10/31/15): The coronary system was right dominant. 1. Left main bifurcated into LAD and left circumflex. Left main was free of disease. 2. Left anterior descending artery had 70% proximal stenosis followed by widely patent sten t. The LAD then continued and one could see the vein graft to the LAD filling retrograde. The rest of the LAD was free of disease. The first ailyn gonal branch was small and arising from a previously implanted stent and had a 90% tubular s tenosis. The second diagonal branch was a moderate-sized vessel and had an 85% ostial lesion . 3. The ramus branch had a 40% stenosis. 4. Left circumflex coronary artery and the marginal branches were free of disease. Extensiv tylor collaterals were seen from left to right, feeding the PDA and DIANE branches separately. The PDA and DIANE branches bifurcation appeared to be to tally occluded. 5. Right coronary artery was totally occluded and had evidence of previously implanted sten t. The only conus branch could be seen by engagement. VEIN GRAFT ANGIOGRAPHY 1. Vein graft to the RCA was totally occluded. 2. Vein graft to the LAD was widely patent. LEFT VENTRICULOGRAM akinetic inferior basal segment with hypokinetic inferior wall. Ejection fraction of 45%. PROBLEM LIST Principal Problem: Shock Active Problems: CAD (coronary artery disease) Diabetes mellitus, type II - ORAL Control GERD (gastroesophageal reflux disease) Hypertension Atrial fibrillation Heart block Hyperlipidemia Infection of prosthetic right knee joint Ischemic cardiomyopathy Systolic heart failure Pacemaker Coronary artery disease involving coronary bypass graft without angina pectoris COVID-19 Cardiac pacemaker in situ - cWyze ASSESSMENT & PLAN 1. Rhabdomyolysis, s/p fall vs syncope with prolonged down time. He does not remember what happened to him. Significant hypoglycemia was noted on initial evaluation by EMS. His pace maker interrogation 07/19/2020 showed no clinically significant arrhythmias corresponding to that time frame. 2. Hypotension / Shock, resolved, likely multifactorial. 3. Chronic kidney disease, stage III. His current renal function is actually slightly impr herrera compared to labs from 06/08/19, so this may be his baseline. Renal function has improv ed on this admission, will try Entresto and monitor his response. 4. Mild troponin elevation, likely myocardial injury / troponin "leak" from rhabdomyolysis and hypotension. He will require eventual ischemic evaluation, as noted below. 5. Nonsustained ventricular tachycardia, frequent PVCs on telemetry, pacemaker interrogatio n. He will need eventual cardiac catheterization and beta afua therapy as below, but bet a afua was held due to hypotension. His BP will now tolerate it, and he was started on T oprol XL 25 mg, increase to 50 mg daily today. He was advised he is at risk for life-threat ening ventricular arrhythmia/cardiac arrest due to his reduced LV systolic function, and tre uld be considered for an upgrade to an AICD for primary prevention of sudden cardiac i f he fails to respond to medical therapy. 6. SVT noted on pacemaker interrogation, approximately 5 minutes in duration. He will need to re-establish care with EP, this is not an acute issue right now but continue telemetry. 7. Sinus tachycardia, mild, likely compensatory. TSH was low, see #19, below. 8. History of CAD with prior stenting followed by CABG x 2 with vein graft to LAD, vein gra ft to RCA His last cardiac catheterization October 2015 showed both the [place] RCA and its vein graft were occluded. There were liqo-rt-uattr collaterals to the RPDA and RPLA (occlusi on at their bifurcation). The vein graft to the LAD was patent at that time, and there were no significant lesions in the left circumflex system. As he now has worsening LV systolic fu nction, he will ultimately require angiogram to help assess for an underlying ischemic cause of this problem, but need to defer at this time due to other acute issues, specifically his severely compromised renal function. He is on aspirin 81 mg, atorvastatin and Toprol-XL wi ll be increased to 50 mg daily. He appears to have significant infarct based on wall motion abnormalities on echocardiogram and high RV pacing threshold is likely due to RV scarring fr om his inferior RI. Wall motion abnormalities in the RCA territory have been documented prev iously. 9. Ischemic cardiomyopathy, LVEF was 40-45% by his echocardiogram 2016, and is now down to 25-30%. His BNP is elevated, but he has no other signs or symptoms of congestive heart fail ure, and would be classified as having chronic systolic heart failure, class C, NYHA class I . He is not having anginal symptoms, therefore there is no indication for urgent cardiac cat heterization. This can be deferred to the outpatient setting in 2-3 weeks. He does not appe ar volume overloaded at this time. He agreed to come to our [place] office in 2 weeks to arrange for a cardiac cath. 10. Sick sinus syndrome s/p dual chamber Medtronic pacemaker 09/2016, interrogated 0, with chronically elevated RV capture threshold 6V @ 1.2 ms indicating extensive scarring of the myocardium likely from prior myocardial infarction. Otherwise normal device function. Additionally noted was a 1 second run of nonsustained VT on 07/15/20 and SVT x 5 minutes on 07/17/20 with average ventricular rate 158 bpm. 11. History of essential Hypertension. 12. Hyperlipidemia. He was on niacin prior to admission, atorvastatin started, lipid panel shows adequate control on atorvastatin 20 mg, LDL 38, but very low HDL of 19 13. Type II diabetes mellitus - Hypoglycemic on EMS arrival. 14. Prior DVT on warfarin, INR therapeutic 15. Peripheral neuropathy 16. 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 17. Recent COVID19 diagnosis in May, with reported pneumonia on 07/11/20 (from outpatient clinic progress note), not seen on PCXR 07/18/20. He has been afebrile since admission and is likely no longer contagious, but still on precautions. 18. ? Subclinical Hyperthyroidism, TSH 0.249 on 07/19/20, 0.372 on recheck, with a normal fr ee T4 19. Thrush, being treated 20. ? Discharge tomorrow if renal function remains stable, follow up in [place] office in 2 weeks. Code Status: Full Code almariza, Gordon Sheikh MD - 0 07/23/2020 9:38 AM PDT Service: Hospitalist Progress Note Pt: Duane Mas AGE/SEX: 80 y.o. male ROOM: [address] [place] [address] : 1940 PCP: Erin Forrester MD ADMIT DATE: 07/18/2020 TODAY'S DATE: 07/23/2020 Hospital Day/Hospital Course: LOS: 5 days Per ICU 80 y.o.malewith significant past medical history of DM2, CKD 4, CAD, 2V CABG 2000, SV t o LAD and SV to PDA, SSS s/p medtronic dual chamber PPM/ICD, Ischemic cardiomyopathy,Sever e sigmoid diverticulosiswho presents to [facility] after an episode of fall.Patient was trying to go to bed on07/15when he slid out of his chair and fell down.Apparentl y he was down on the floor for around 9 hours since his was in another room she could n ot hear him.He was lying on the left side on his shoulder.He did not hit his head. Occasionally he went in and out but unable to tell me if he had a complete syncopal episod e.This fall was likely mechanical and he felt dizzy before having this fall.He had n o nausea vomiting patient was also tested positive for COVID in May 2020.He and his w mike attended a at this time and his did not feel good hence both got tested and both were positive for COVID-19.Eventually the patient was found in the morning after w hich he presented to the emergency roomon 07/16.He was initially found to be hypoglycem ic with a blood sugar of 40 hence he received D50. initially when patient was admitted to the hospital CK was elevated [id number].Hence kassy ent also received fluid resuscitation for rhabdomyolysis and was kept on maintenance fluid a t 125 cc/h. On 07/17,his CK worsened [id number].His troponin was only 0.014.Also he c ontinued to have soft blood pressures.Hence he was transferred to ICU in [facility] . On 07/18,he was also started on [id number] hypertension.Seems patient was al so continued on torsemide 20 mg twice a day and metoprolol 5 mg IV every 6 hours. TTEdone on07/18/20 Mild dilated left ventricular cavity LV systolic function is severely reduced with EF of 25 to 30%.Severe hypokinesis of all segments.Akinesis of the basal inferior and basal inferolateral segments near akinesis of the mid inferoseptal and apical segments.Grade 1 diastolic dysfunction with normal left atrial pressure.Normal RV size and function. Mild MR.IVC respiratory change in dimension greater than 50% and appears normal Other pertinent labson 07/17,[id number],INR 3.3,creatinine 1.89,hemoglobin 13.5,W BC 11.7,ESR 78. 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 Given his significant cardiac history, TTEshowing severe hypokinesis and EF of 25 to 30%, new pressor requirement,[facility]. [facility] to the [facility] patient is awake alert and oriented x3.He is comfortably resting in bed.Systolic blood pressure 160 heart rate within 70.His main complaint was left shoulder pain." ICU Timeline: 07/18- Admitted to ICU, on pressors. Started on zosyn for empiric coverage due to shock s moss. COVID-19 positive. On 2L NC. SUBJECTIVE: Patient seen and examine. Sitting comfortably eating his breakfast. Declined to have any chest pain or dizziness or lightheadedness. No abdominal pain. Scheduled Medications: aspirin 81 mg Oral Daily atorvaSTATin 20 mg Oral Nightly cephalexin 500 mg Oral BID cholecalciferol 2,000 Units Oral Daily docusate sodium 100 mg Oral BID famotidine 20 mg Oral Q48H insulin lispro 0-6 Units Subcutaneous 4x Daily AC and HS metoprolol succinate 50 mg Oral Daily nystatin 500,000 Units Swish & Swallow 4x Daily Continuous Infusions dextrose 10% PRN Medications acetaminophen, wbdqqgdfojGDCZJ-tmskyo-tdycyqmxi mouthwash (ADS admixture), bisacodyl, Hypog lycemia Management AND POCT Glucose AND dextrose AND dextrose 10%, Magnesium rep lacement - NON ICU AND Magnesium AND magnesium oxide AND magnesium sulfate AND magnesium sulfate, ondansetron, polyethylene glycol, Potassium replacement - NON ICU AN D Potassium AND potassium chloride AND potassium chloride AND potassium chlori de IVPB (other volumes & diluents) AND potassium chloride IVPB (other volumes & diluents ) Allergy: Allergies Allergen Reactions Omeprazole Other (See Comments) Sulfa Antibiotics Rash and Hives OBJECTIVE: Vitals: Patient Vitals for the past 24 hrs: BP Temp Temp src Pulse Resp SpO2 07/23/20 0813 138/63 37.1 C (98.7 F) Oral 95 18 94 % 07/23/20 0415 148/66 37.2 C (98.9 F) Oral 95 20 94 % 07/22/20 2318 136/64 36.9 C (98.5 F) Oral 98 20 (!) 76 % 07/22/20 1936 123/81 37.1 C (98.7 F) Oral 100 20 95 % 07/22/20 1658 121/89 36.9 C (98.5 F) Oral 95 20 97 % 07/22/20 1307 130/65 37.2 C (98.9 F) Oral 92 18 95 % I&O Detailed Table: Intake/Output Summary (Last 24 hours) at 07/23/2020 0938 Last data filed at 07/23/2020 0416 Gross per 24 hour Intake 461 ml Output 700 ml Net -239 ml Patient Vitals for the past 96 hrs: Weight 07/21/20 0316 77.8 kg (171 lb 9.6 oz) Hemodynamics Last 24hrs: Physical Examination: Constitutional: He is awake and alert and talking to me. HEENT: Neck supple, no JVD, non icteric sclera. Cardiovascular: Normal rate, S1 and S2 Pulmonary/Chest: Clear bilateral. Abdominal: Soft.NT Extremeties/Musculoskeletal: Normal range of motion.exhibits no tenderness. Left arm swell ing and bruising. Neurological: Alert and oriented to person, place, and time. Skin: Skin is warm and dry. No rash noted. No erythema. No pallor. Psychiatric: Has a normal mood and affect. Behavior is normal. Judgment normal. Not suicida l LABS: Recent Labs Lab 07/23/2052807/22/2070507/21/20 0607/20/20 0553 WBC 8.06 7.24 7.67 9.63 HGB 11.4* 11.4* 12.0* 12.4* HCT 34.4* 34.3* 36.6* 36.8* PLT 175 147* 129* 131* MONOPCT -- 11.00 12.60 11.40 Recent Labs Lab 07/23/2052807/22/20 0707/21/20 0607/18/20 1737 NA 140 138 139 < > 133* K 4.3 3.9 3.9 < > 4.2 CL 109 107 106 < > 97* CO2 23 26 29 < > 33* BUN 16 20 26* < > 28* CALCIUM 7.7* 7.2* 7.5* < > 7.6* ALKPHOS -- -- -- -- 37 ALT -- -- -- -- 41 AST -- -- -- -- 140* < > = values in this interval not displayed. Phosphorus: Lab Results Component Value Date PHOS 2.4 07/19/2020 Recent Labs Lab 07/23/2052807/22/20 0707/21/20 0640 MG 2.0 2.1 2.3 Recent Labs Lab 07/23/2052807/22/20 0707/21/20 0640 07/18/20 1737 INR 4.2 3.9 3.2 < > 2.6 PTT -- -- -- -- 54* < > = values in this interval not displayed. Recent Labs Lab 07/20/20 0553 07/19/20 1603 TSH 0.372* 0.249* Diagnostic Imaging: Impressions only: Recent Results (from the past 360 hour(s)) XR Chest AP Portable Impression Minimal linear bibasilar opacities to likely resent atelectasis and/or airspace disease. Question tiny bilateral pleural effusions. Final Report Signed by: Negro Palmer, Heladio Sign Date/Time: 07/18/2020 7:33 PM XR Shoulder Left 2 + Vw Impression No evidence for fracture. Moderate acromioclavicular joint degenerative change. Final Report Signed by: Negro Palmer, Heladio Sign Date/Time: 07/18/2020 7:32 PM PROBLEM LIST Principal Problem: Shock Active Problems: CAD (coronary artery disease) Diabetes mellitus, type II - ORAL Control GERD (gastroesophageal reflux disease) Hypertension Atrial fibrillation Heart block Hyperlipidemia Infection of prosthetic right knee joint Ischemic cardiomyopathy Systolic heart failure Pacemaker Coronary artery disease involving coronary bypass graft without angina pectoris COVID-19 Cardiac pacemaker in situ - MEDTRONIC Resolved Problems: * No resolved hospital problems. * ASSESSMENT & PLAN 80 y.o.malewith significant past medical history of DM2, CKD 4, CAD, 2V CABG 2000, SV t o LAD and SV to PDA, SSS s/p medtronic dual chamber PPM/ICD, Ischemic cardiomyopathy,Sever e sigmoid diverticulosiswho presents to [facility] after an episode of fall. Principal Problem: Shock He is awake and alert and talking to me. Blood pressure is improving. His cardiogenic sh ock has resolved. He was in cardiogenic shock. That had resolved. No pressors at this chris e. Patient was not septic when came to the hospital. CAD (coronary artery disease) history of paroxysmal atrial fibrillation According to the cardiology angiogram should be done. His kidney function actually improv ing. After discussion with nephrology and they are thinking that if angiogram is needed we should proceed with angiogram. He had mildly elevated troponin. For now we will continue w ith current treatment plan. I will let the cardiology to decide about the need of angiogram . INR is still on the high side today. Diabetes mellitus, type II - ORAL Control Type 2 diabetes is appropriately controlled. GERD (gastroesophageal reflux disease) On ppi Rhabdomyolysis: CPK down to 792. Hypertension Along with history of atrial fibrillation . Already on warfarin. Heart block Following up with the cardiology. He had a pacemaker. Also had hyperlipidemia Infection of prosthetic right knee joint On chronic Keflex Acute renal failure: More likely volume depletion. I do not think that he is in congestive heart failure. Kid ramiro functions are actually getting better. ischemic cardiomyopathy Along with chronic systolic heart failure. Seems like well compensated. Patient is not i n heart failure at this time. Most recent echocardiogram shows ejection fraction of 20 to 2 5% seems like compensated. I am going to hold anticoagulation if we need left heart cath. COVID-19 He is having a fever. I doubt it is related to the COVID. He was diagnosed with COVID in May. He is status post cardiac pacemaker in situ - MEDTRONIC Resolved Problems: * No resolved hospital problems. * Disposition: DC plan probably couple of days if you are not planning to do angiogram. Communication thread: I called Beth platt # [phone] on July 20 at 1208 and answered all the question I called her on July 21 at 1140 and no answer I called on July 22 at 1040 4 in the morning told her about the plan about kidney func tion and angiogram Called her on July 23 at 942. Told her about the plan. Gordon Bragg MD, FACP 07/23/2020 9:38 AM PDT Portions of this chart may have been copied from previous notes for continuity of care purp ose Portions of this chart may have been created with [employer] voice recognition software. Occasi onal wrong-word or sound-alike substitutions may have occurred due to the inherent olson itations of voice recognition software. Please read the chart carefully and recognize, using context, where these substitutions have occurred. Gordon Valdez MD - 10:39 AM PDT Service: Hospitalist Progress Note Pt: Duane Mas AGE/SEX: 80 y.o. male ROOM: [address] [place] [address] : 1940 PCP: Erin Forrester MD ADMIT DATE: 07/18/2020 TODAY'S DATE: 07/22/2020 Hospital Day/Hospital Course: LOS: 4 days Per ICU 80 y.o.malewith significant past medical history of DM2, CKD 4, CAD, 2V CABG 2000, SV t o LAD and SV to PDA, SSS s/p medtronic dual chamber PPM/ICD, Ischemic cardiomyopathy,Sever e sigmoid diverticulosiswho presents to [facility] after an episode of fall.Patient was trying to go to bed on07/15when he slid out of his chair and fell down.Apparentl y he was down on the floor for around 9 hours since his was in another room she could n ot hear him.He was lying on the left side on his shoulder.He did not hit his head. Occasionally he went in and out but unable to tell me if he had a complete syncopal episod e.This fall was likely mechanical and he felt dizzy before having this fall.He had n o nausea vomiting patient was also tested positive for COVID in May 2020.He and his w mike attended a at this time and his did not feel good hence both got tested and both were positive for COVID-19.Eventually the patient was found in the morning after w [facility] he presented to the emergency roomon 07/16.He was initially found to be hypoglycem ic with a blood sugar of 40 hence he received D50. initially when patient was admitted to the hospital CK was elevated [id number].Hence kassy ent also received fluid resuscitation for rhabdomyolysis and was kept on maintenance fluid a t 125 cc/h. On 07/17,his CK worsened [id number].His troponin was only 0.014.Also he c ontinued to have soft blood pressures.Hence he was transferred to ICU in [facility] . On 07/18,he was also started on Dccvwinu2qlshcc hypertension.Seems patient was al so continued on torsemide 20 mg twice a day and metoprolol 5 mg IV every 6 hours. TTEdone on07/18/20 Mild dilated left ventricular cavity LV systolic function is severely reduced with EF of 25 to 30%.Severe hypokinesis of all segments.Akinesis of the basal inferior and basal inferolateral segments near akinesis of the mid inferoseptal and apical segments.Grade 1 diastolic dysfunction with normal left atrial pressure.Normal RV size and function. Mild MR.IVC respiratory change in dimension greater than 50% and appears normal Other pertinent labson 07/17,[id number],INR 3.3,creatinine 1.89,hemoglobin 13.5,W BC 11.7,ESR 78. 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 Given his significant cardiac history, TTEshowing severe hypokinesis and EF of 25 to 30%, new pressor requirement,[facility] On arrival to the ICU patient is awake alert and oriented x3.He is comfortably resting in bed.Systolic blood pressure 160 heart rate within 70.His main complaint was left shoulder pain." ICU Timeline: 07/18- Admitted to ICU, on pressors. Started on zosyn for empiric coverage due to shock s moss. COVID-19 positive. On 2L NC. SUBJECTIVE: Patient seen and examine. He is awake and alert and talking to me. Dizziness or lighthea dedness. Sitting comfortably. Scheduled Medications: aspirin 81 mg Oral Daily atorvaSTATin 20 mg Oral Nightly cephalexin 500 mg Oral BID cholecalciferol 2,000 Units Oral Daily docusate sodium 100 mg Oral BID famotidine 20 mg Oral Q48H insulin lispro 0-6 Units Subcutaneous 4x Daily AC and HS metoprolol succinate 50 mg Oral Daily nystatin 500,000 Units Swish & Swallow 4x Daily warfarin 1 mg Oral See Admin Instructions warfarin per pharmacy Other Pharmacy Consult Continuous Infusions dextrose 10% sodium chloride 0.9% 75 mL/hr at 07/21/202120 PRN Medications acetaminophen, cnmxofrwkoVAENS-sqobuw-mhbjxuemg mouthwash (ADS admixture), bisacodyl, Hypog lycemia Management AND POCT Glucose AND dextrose AND dextrose 10%, Magnesium rep lacement - NON ICU AND Magnesium AND magnesium oxide AND magnesium sulfate AND magnesium sulfate, ondansetron, polyethylene glycol, Potassium replacement - NON ICU AN D Potassium AND potassium chloride AND potassium chloride AND potassium chlori de IVPB (other volumes & diluents) AND potassium chloride IVPB (other volumes & diluents ) Allergy: Allergies Allergen Reactions Omeprazole Other (See Comments) Sulfa Antibiotics Rash and Hives OBJECTIVE: Vitals: Patient Vitals for the past 24 hrs: BP Temp Temp src Pulse Resp SpO2 07/22/20 0747 113/57 37.1 C (98.7 F) Oral 89 18 92 % 07/22/20 0316 112/55 36.9 C (98.4 F) Oral 85 18 93 % 07/21/20 2346 116/58 36.6 C (97.8 F) Oral 89 20 95 % 07/21/20 2034 119/59 37.2 C (98.9 F) Oral 93 18 94 % 07/21/20 1607 118/59 37 C (98.6 F) 94 20 94 % 07/21/20 1218 143/71 36.9 C (98.4 F) Oral 20 91 % 07/21/20 1102 111/58 36.9 C (98.5 F) Oral 20 95 % I&O Detailed Table: Intake/Output Summary (Last 24 hours) at 07/22/2020 1039 Last data filed at 07/22/2020 0600 Gross per 24 hour Intake 2866.42 ml Output 950 ml Net 1916.42 ml Patient Vitals for the past 96 hrs: Weight 07/21/20 0316 77.8 kg (171 lb 9.6 oz) 07/19/20 0330 77 kg (169 lb 12.1 oz) 07/18/20 1600 83.5 kg (184 lb 1.4 oz) Hemodynamics Last 24hrs: Physical Examination: Constitutional: He is awake and alert and talking to me HEENT: Neck supple, no JVD, non icteric sclera. Cardiovascular: Normal rate, S1 and S2 Pulmonary/Chest: Clear bilateral. Abdominal: Soft.NT Extremeties/Musculoskeletal: Normal range of motion.exhibits no tenderness. Left arm swell ing and bruising. Neurological: Alert and oriented to person, place, and time. Skin: Skin is warm and dry. No rash noted. No erythema. No pallor. Psychiatric: Has a normal mood and affect. Behavior is normal. Judgment normal. Not suicida l LABS: Recent Labs Lab 07/22/20 0706 07/21/20 0640 07/20/20 0553 WBC 7.24 7.67 9.63 HGB 11.4* 12.0* 12.4* HCT 34.3* 36.6* 36.8* PLT 147* 129* 131* MONOPCT 11.00 12.60 11.40 Recent Labs Lab 07/22/20 0706 07/21/20 0640 07/20/20 0553 07/18/20 1737 NA 138 139 137 < > 133* K 3.9 3.9 3.9 < > 4.2 CL 107 106 102 < > 97* CO2 26 29 29 < > 33* BUN 20 26* 28* < > 28* CALCIUM 7.2* 7.5* 7.9* < > 7.6* ALKPHOS -- -- -- -- 37 ALT -- -- -- -- 41 AST -- -- -- -- 140* < > = values in this interval not displayed. Phosphorus: Lab Results Component Value Date PHOS 2.4 07/19/2020 Recent Labs Lab 07/22/20 0707/21/20 0640 07/20/20 0553 MG 2.1 2.3 2.3 Recent Labs Lab 07/22/20 0707/21/20 0640 07/20/20 0553 07/18/20 1737 INR 3.9 3.2 2.7 < > 2.6 PTT -- -- -- -- 54* < > = values in this interval not displayed. Recent Labs Lab 07/20/20 0553 07/19/20 1603 TSH 0.372* 0.249* Diagnostic Imaging: Impressions only: Recent Results (from the past 360 hour(s)) XR Chest AP Portable Impression Minimal linear bibasilar opacities to likely resent atelectasis and/or airspace disease. Question tiny bilateral pleural effusions. Final Report Signed by: Negro Palmer Chet Sign Date/Time: 07/18/2020 7:33 PM XR Shoulder Left 2 + Vw Impression No evidence for fracture. Moderate acromioclavicular joint degenerative change. Final Report Signed by: Negro Palmer Chet Sign Date/Time: 07/18/2020 7:32 PM PROBLEM LIST Principal Problem: Shock Active Problems: CAD (coronary artery disease) Diabetes mellitus, type II - ORAL Control GERD (gastroesophageal reflux disease) Hypertension Atrial fibrillation Heart block Hyperlipidemia Infection of prosthetic right knee joint Ischemic cardiomyopathy Systolic heart failure Pacemaker Coronary artery disease involving coronary bypass graft without angina pectoris COVID-19 Cardiac pacemaker in situ - [employer]TR[employer] Resolved Problems: * No resolved hospital problems. * ASSESSMENT & PLAN 80 y.o.malewith significant past medical history of DM2, CKD 4, CAD, 2V CABG 2000, SV t o LAD and SV to PDA, SSS s/p medtronic dual chamber PPM/ICD, Ischemic cardiomyopathy,Sever e sigmoid diverticulosiswho presents to [facility] after an episode of fall. Principal Problem: Shock His cardiogenic shock has resolved. He was in cardiogenic shock. That had resolved. No pressors at this time. Patient was not septic when came to the hospital. CAD (coronary artery disease) According to the cardiology angiogram should be done. His kidney function actually improv ing. Mildly elevated troponin. Not a Candidate for left heart cath due to renal insufficie ncy. If his kidney function continues to improve will consider doing left heart cath. Diabetes mellitus, type II - ORAL Control Type 2 diabetes is appropriately controlled. GERD (gastroesophageal reflux disease) On ppi Rhabdomyolysis: CPK down to 1200. Recheck kidney function and CPK tomorrow. Hypertension Along with history of atrial fibrillation . Already on warfarin. Heart block Following up with the cardiology. He had a pacemaker. Also had hyperlipidemia Infection of prosthetic right knee joint On chronic Keflex Acute renal failure: More likely volume depletion. I do not think that he is in congestive heart failure. Kid ramiro functions are actually getting better. ischemic cardiomyopathy Along with chronic systolic heart failure. Seems like well compensated. Patient is not i n heart failure at this time. Most recent echocardiogram shows ejection fraction of 20 to 2 5% seems like compensated. I am going to hold anticoagulation if we need left heart cath. COVID-19 He is having a fever. I doubt it is related to the COVID. He was diagnosed with COVID in May. He is status post cardiac pacemaker in situ - [employer] Resolved Problems: * No resolved hospital problems. * Disposition: DC plan 2 to 3 days Communication thread: I called Beth platt # [phone] on July 20 at 1208 and answered all the question I called her on July 21 at 1140 and no answer I called on July 22 at 1040 4 in the morning told her about the plan about kidney func tion and angiogram Gordon Bragg MD, FACP 07/22/2020 10:39 AM PDT Portions of this chart may have been copied from previous notes for continuity of care purp ose Portions of this chart may have been created with [employer] voice recognition software. Occasi onal wrong-word or sound-alike substitutions may have occurred due to the inherent olson itations of voice recognition software. Please read the chart carefully and recognize, using context, where these substitutions have occurred. Alis Moura RN - 07/21/2020 2:46 PM PDT [facility]: Wound Care Consult Note Hospital Day: 3 SUBJECTIVE Patient Summary: Wound care triggered for pressure injury to coccyx and left shoulder damage. OBJECTIVE 07/21/20 1443 Visit Information Visit Type Initial wound assessment Wound 07/18/201199 Other (comment) coccyx moisture damage Placement Date/Time: 07/18/201199 Primary Wound Type: Other (comment) Location: coccyx Wound Subtype: moisture damage Wound WDL ex Base reddened;pink Wound Base Comment MASD to gluteal cleft Periwound Area dry Wound Length (cm) 3 cm Wound Width (cm) 1 cm Wound Surface Area (cm^2) 3 cm^2 Drainage Amount none Wound Cleaning cleansed with (dimethicone wipe) Wound Interventions barrier applied (Zinc Oxide) Dressing open to air Wound 07/16/201199 Traumatic Left upper shoulder Placement Date/Time: 07/16/201199 Primary Wound Type: Traumatic Side: Left Orientation : upper Location: shoulder Wound WDL ex Dressing Appearance moist drainage Base blistered;edematous;ecchymotic Wound Base Comment Cluster of multiple skin tears noted Periwound Area ecchymotic Edges irregular Drainage Characteristics/Odor serosanguineous Drainage Amount moderate Wound Cleaning cleansed with;sterile normal saline Wound Interventions off-loading Dressing dressing changed: (Transfer foam) Wound Image Visit Summary Next Wound/Ostomy Visit Date 07/28/20 PROBLEM LIST Patient Active Problem List Diagnosis SEUN (obstructive sleep apnea) Ankylosing spondylitis Dysphagia GERD (gastroesophageal reflux disease) Hypertension CAD (coronary artery disease) H/O CABG H/O PTCA - with Coronary STENT Placement Cardiac pacemaker in situ - MEDTRONIC Class I, BMI 30-34.9 shelter current use of anticoagulant - COUMADIN Beta Blockers - Daily Use Diabetes mellitus, type II - ORAL Control Htioy-gm-Dimmzj lying flat DAIJA II Inhibitors - Daily Use Chronic renal insufficiency, stage 4 (severe) Atrial fibrillation Bilateral leg edema 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 Chronic sinusitis DVT (deep venous thrombosis) Dyspeptic diarrhea Gout Heart block History of gout Hyperlipidemia Infection of prosthetic right knee joint Ischemic cardiomyopathy Morbid obesity Secondary hyperparathyroidism Systolic heart failure Skin lesions, generalized Pacemaker CKD (chronic kidney disease), stage III Diabetes mellitus Type 2 diabetes mellitus without complication Coronary atherosclerosis Coronary artery disease involving coronary bypass graft without angina pectoris Essential (primary) hypertension Heart disease Pacemaker-dependent due to [place] cardiac rhythm insufficient to support life Venous insufficiency of both lower extremities Chronic anticoagulation Encounter for long-term (current) use of antibiotics Obstructive sleep apnea syndrome Shock COVID-19 ASSESSMENT & PLAN Gluteal Cleft Wound: Blanchable erythema noted. Recommending zinc oxide BID. Left Shoulder Wound: Multiple blistered areas noted. Skin is exceedingly fragile. Recommend ing transfer foam to be changed every other day and PRN. Please use adhesive releaser when removing tape or IVs from patient's skin. Hemosiderin staining noted to bilateral legs. Recommending keeping legs elevated when possi ble. Thank you for allowing me to participate in the care of this patient. I will continue to follow with you. Please call if there are any additional questions. Alis Olivera RN 14:46 PDT Brooks Brown P harmacy Resident - 07/21/2020 2:40 PM PDTFormatting of this note might be different from wojciech olivares original. Pharmacy Warfarin Monitoring: Duane Mas male 80 y.o. admitted on 07/18 for cardiogenic shock, possible septic shock (transfer from [facility]) INDICATION: DVT OTHER ANTICOAGULATION: none identified DRUG INTERACTIONS: no significant DDI (cephalexin [employer]) PATIENT DIET: carb consistent Bleed risk: moderate, recent fall [employer] regimen: 2.5 mg daily - confirmed with patient , Beth, via pill bottle identificat ion and also confirmed with patient pharmacy ([facility]aqu[facility]), and records from MD office [facility] Recent Labs Lab 07/21/20 0640 07/20/20 0553 07/19/20 1603 07/19/20 0423 HGB 12.0* 12.4* -- 12.2* PLT 129* 131* -- 120* INR 3.2 2.7 2.6 -- DATE 07/21 07/20 07/19 07/18 INR 3.2 2.7 2.7 2.6, 2.6 Warfarin Dose Hold 2.5 mg planned 2.5 mg Unknown, dose held Assessment: The INR is Above the target range of 2-3 Will hold one dose and then begin home regiment of 2.5 mg starting tomorrow. May need to lal ve dose reduction to home regiment. Plan: Pharmacy to hold warfarin today INR in am Pharmacy will continue to follow and modify therapy as indicated. Brooks Mccarthy, [facility] 2:34 PM PDT 07/21/2020 Claribel Abdi, REUBEN - 07/21/2020 2:22 PM PDTFormatting of this note might be different from wojciech hernandez. NUTRITION NOTE Summary Assessment for pressure injury and possible dysphagia. Pt is 80 yo M admitted for shock, +C OVID-19. [employer] following, pt scheduled for MBS eval today. Nutrition Intake Current active diet order is: Diet Diet consistent carb; soft and bite-sized (SB6); mildly thick (MT2); Effective Now Poor appetite. 0-50% of meals charted. Nourishments: supplement ordered for pt - Boost Glucose Control BID at snack times Medications Vit D, NS @ 75 mL/hr Nutrition-Focused Physical Findings Digestive System (Mouth to Rectum): mouth sores/lesions Skin: stage I PI - coccyx Anthropometrics Pt is 114% IBW with BMI 26.9 Current Weight: 77.8 kg (171 lb 9.6 oz) Biochemical Data, Medical Test, and Procedures Recent Labs 07/21/20 0640 07/19/20 0423 NA 139 < > 142 K 3.9 < > 3.8 GLU 79 < > 80 BUN 26* < > 26* CREA 1.66* < > 1.81* PHOS -- -- 2.4 MG 2.3 < > 2.1 < > = values in this interval not displayed. Estimated Energy Needs Energy Calorie Requirements: 5220-4943 kcal(25-30 kcal/kg admit 77) Estimated Protein Needs Range Gm Protein (gm): 92-116 g(1.2-1.5 g/kg admit 77) Nutrition Diagnosis Inadequate oral intake related to decreased ability to consume sufficient energy as evidenc ed by reported poor intake/appetite Recommendations Consistent CHO diet with consistencies per [employer] - soft & bite sized, mildly thick House meals Supplements ordered BID - Boost Glucose Control Encourage PO intake Nutritional Risk Required Follow Up: (07/26 M) Claribel Salcido RD 07/21/2020 2:22 PM PDT Gordon Valdez - 2019 11:00 AM PDT Service: Hospitalist Progress Note Pt: Duane Mas AGE/SEX: 80 y.o. male ROOM: 8121/8121-01 : 1940 PCP: Erin Forrester MD ADMIT DATE: 07/18/2020 TODAY'S DATE: 07/21/2020 Hospital Day/Hospital Course: LOS: 3 days Per ICU 80 y.o.malewith significant past medical history of DM2, CKD 4, CAD, 2V CABG 2000, SV t o LAD and SV to PDA, SSS s/p medtronic dual chamber PPM/ICD, Ischemic cardiomyopathy,Sever e sigmoid diverticulosiswho presents to [facility] after an episode of fall.Patient was trying to go to bed on07/15when he slid out of his chair and fell down.Apparentl y he was down on the floor for around 9 hours since his was in another room she could n ot hear him.He was lying on the left side on his shoulder.He did not hit his head. Occasionally he went in and out but unable to tell me if he had a complete syncopal episod e.This fall was likely mechanical and he felt dizzy before having this fall.He had n o nausea vomiting patient was also tested positive for COVID in May 2020.He and his w mike attended a at this time and his did not feel good hence both got tested and both were positive for COVID-19.[facility] roomon [facility].He was initially found to be hypoglycem ic with a blood sugar of 40 hence he received D50. initially when patient was admitted to the hospital CK was elevated [id number].Hence kassy ent also received fluid resuscitation for rhabdomyolysis and was kept on maintenance fluid a t 125 cc/h. On 07/17,his CK worsened [id number].His troponin was only 0.014.Also he c ontinued to have soft blood pressures.Hence he was transferred to ICU in [facility] . On 07/18,he was also started on Ltuornbf1menetw hypertension.Seems patient was al so continued on torsemide 20 mg twice a day and metoprolol 5 mg IV every 6 hours. TTEdone on07/18/20 Mild dilated left ventricular cavity LV systolic function is severely reduced with EF of 25 to 30%.Severe hypokinesis of all segments.Akinesis of the basal inferior and basal inferolateral segments near akinesis of the mid inferoseptal and apical segments.Grade 1 diastolic dysfunction with normal left atrial pressure.Normal RV size and function. Mild MR.IVC respiratory change in dimension greater than 50% and appears normal Other pertinent labson 07/17,[id number],INR 3.3,creatinine 1.89,hemoglobin 13.5,W BC 11.7,ESR 78. 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 Given his significant cardiac history, TTEshowing severe hypokinesis and EF of 25 to 30%, new pressor requirement,[facility] On arrival to the ICU patient is awake alert and oriented x3.He is comfortably resting in bed.Systolic blood pressure 160 heart rate within 70.His main complaint was left shoulder pain." ICU Timeline: 07/18- Admitted to ICU, on pressors. Started on zosyn for empiric coverage due to shock s moss. COVID-19 positive. On 2L NC. SUBJECTIVE: Patient seen and examine. He is awake and alert and talking to me. Not in any kind of di stress. No chest pain shortness of breath dizziness or lightheadedness. Scheduled Medications: aspirin 81 mg Oral Daily atorvaSTATin 20 mg Oral Nightly cephalexin 500 mg Oral BID cholecalciferol 2,000 Units Oral Daily docusate sodium 100 mg Oral BID famotidine 20 mg Oral Q48H insulin lispro 0-6 Units Subcutaneous 4x Daily AC and HS metoprolol succinate 50 mg Oral Daily nystatin 500,000 Units Swish & Swallow 4x Daily warfarin 2.5 mg Oral Daily - Warfarin warfarin per pharmacy Other Pharmacy Consult Continuous Infusions dextrose 10% sodium chloride 0.9% 75 mL/hr at 07/21/20 0809 PRN Medications acetaminophen, zlutocwxgbVGCDN-tymybe-xrkbbonjm mouthwash (ADS admixture), bisacodyl, Hypog lycemia Management AND POCT Glucose AND dextrose AND dextrose 10%, Magnesium rep lacement - NON ICU AND Magnesium AND magnesium oxide AND magnesium sulfate AND magnesium sulfate, ondansetron, polyethylene glycol, Potassium replacement - NON ICU AN D Potassium AND potassium chloride AND potassium chloride AND potassium chlori de IVPB (other volumes & diluents) AND potassium chloride IVPB (other volumes & diluents ) Allergy: Allergies Allergen Reactions Omeprazole Other (See Comments) Sulfa Antibiotics Rash and Hives OBJECTIVE: Vitals: Patient Vitals for the past 24 hrs: BP Temp Temp src Pulse Resp SpO2 Weight 07/21/20 0755 122/61 36.8 C (98.3 F) Oral 92 20 94 % 07/21/20 0316 123/57 36.9 C (98.4 F) Oral 104 24 94 % 77.8 kg (171 lb 9.6 oz) 07/20/20 2355 113/58 37.5 C (99.5 F) Oral 94 22 93 % 07/20/20 2019 117/64 37.4 C (99.4 F) Oral 101 24 94 % 07/20/20 1658 94/66 36.8 C (98.2 F) Oral 101 28 90 % 07/20/20 1417 115/62 99 07/20/20 1144 141/65 37.4 C (99.3 F) Oral 104 23 94 % I&O Detailed Table: Intake/Output Summary (Last 24 hours) at 07/21/2020 1100 Last data filed at 07/21/2020 0716 Gross per 24 hour Intake 2026 ml Output 850 ml Net 1176 ml Patient Vitals for the past 96 hrs: Weight 07/21/20 0316 77.8 kg (171 lb 9.6 oz) 07/19/20 0330 77 kg (169 lb 12.1 oz) 07/18/20 1600 83.5 kg (184 lb 1.4 oz) Hemodynamics Last 24hrs: Physical Examination: Constitutional: Awake and alert and talking to me. HEENT: Neck supple, no JVD, non icteric sclera. Cardiovascular: Normal rate, S1 and S2 Pulmonary/Chest: Clear bilateral. Abdominal: Soft.NT Extremeties/Musculoskeletal: Normal range of motion.exhibits no tenderness. Left arm swell ing and bruising. Neurological: Alert and oriented to person, place, and time. Skin: Skin is warm and dry. No rash noted. No erythema. No pallor. Psychiatric: Has a normal mood and affect. Behavior is normal. Judgment normal. Not suicida l LABS: Recent Labs Lab 07/21/20 0640 07/20/20 0553 07/19/203 WBC 7.67 9.63 9.62 HGB 12.0* 12.4* 12.2* HCT 36.6* 36.8* 37.1* PLT 129* 131* 120* MONOPCT 12.60 11.40 11.10 Recent Labs Lab 07/21/20 0640 07/20/20 0553 07/19/20 0423 07/18/20 1737 NA 139 137 142 133* K 3.9 3.9 3.8 4.2 CL 106 102 104 97* CO2 29 29 28 33* BUN 26* 28* 26* 28* CALCIUM 7.5* 7.9* 6.6* 7.6* ALKPHOS -- -- -- 37 ALT -- -- -- 41 AST -- -- -- 140* Phosphorus: Lab Results Component Value Date PHOS 2.4 07/19/2020 Recent Labs Lab 07/21/20 0640 07/20/20 0553 07/19/20 0423 MG 2.3 2.3 2.1 Recent Labs Lab 07/21/20 0640 07/20/20 0553 07/19/20 1603 07/18/20 1737 INR 3.2 2.7 2.6 2.6 PTT -- -- -- 54* Recent Labs Lab 07/20/20 0553 07/19/20 1603 TSH 0.372* 0.249* Diagnostic Imaging: Impressions only: Recent Results (from the past 360 hour(s)) XR Chest AP Portable Impression Minimal linear bibasilar opacities to likely resent atelectasis and/or airspace disease. Question tiny bilateral pleural effusions. Final Report Signed by: Negro Palmer Chet Sign Date/Time: 07/18/2020 7:33 PM XR Shoulder Left 2 + Vw Impression No evidence for fracture. Moderate acromioclavicular joint degenerative change. Final Report Signed by: Negro Palmer Chet Sign Date/Time: 07/18/2020 7:32 PM PROBLEM LIST Principal Problem: Shock Active Problems: CAD (coronary artery disease) Diabetes mellitus, type II - ORAL Control GERD (gastroesophageal reflux disease) Hypertension Atrial fibrillation Heart block Hyperlipidemia Infection of prosthetic right knee joint Ischemic cardiomyopathy Systolic heart failure Pacemaker Coronary artery disease involving coronary bypass graft without angina pectoris COVID-19 Cardiac pacemaker in situ - MEDTRONIC Resolved Problems: * No resolved hospital problems. * ASSESSMENT & PLAN 80 y.o.malewith significant past medical history of DM2, CKD 4, CAD, 2V CABG 2000, SV t o LAD and SV to PDA, SSS s/p medtronic dual chamber PPM/ICD, Ischemic cardiomyopathy,Sever e sigmoid diverticulosiswho presents to [facility] after an episode of fall. Principal Problem: Shock His cardiogenic shock has resolved. He was in cardiogenic shock. That had resolved. No pressors at this time. CAD (coronary artery disease) Mildly elevated troponin. Not a Candidate for left heart cath due to renal insufficiency. If his kidney function continues to improve will consider doing left heart cath. Diabetes mellitus, type II - ORAL Control Type 2 diabetes is appropriately controlled. GERD (gastroesophageal reflux disease) On ppi Rhabdomyolysis: CPK down to 1200. We will discontinue the hydration at this time. Hypertension Along with history of atrial fibrillation . Already on warfarin. Heart block Following up with the cardiology. He had a pacemaker. Also had hyperlipidemia Infection of prosthetic right knee joint On chronic Keflex Acute renal failure: More likely volume depletion. I do not think that he is in congestive heart failure. Sta rt him on hydration ischemic cardiomyopathy Along with chronic systolic heart failure. Seems like well compensated. Most recent echo cardiogram shows ejection fraction of 20 to 25% seems like compensated. COVID-19 He is having a fever. I doubt it is related to the COVID. He was diagnosed with COVID in May. He is status post cardiac pacemaker in situ - MEDTRONIC Resolved Problems: * No resolved hospital problems. * Disposition: DC plan 2 to 3 days Communication thread: I called Beth platt # [phone] on July 20 at 1208 and answered all the question I called her on July 21 at 1140 and no answer Gordon Bragg MD, FACP 07/21/2020 11:00 AM PDT Portions of this chart may have been copied from previous notes for continuity of care purp ose Portions of this chart may have been created with [employer] voice recognition software. Occasi onal wrong-word or sound-alike substitutions may have occurred due to the inherent olson itations of voice recognition software. Please read the chart carefully and recognize, using context, where these substitutions have occurred. e, Sebas Lopez MD - 020 7:56 AM PDT [facility]: Cardiology Progress Note Date of Admission: 07/18/2020 BRIEF CLINICAL HISTORY: 80 y.o. male with prior history of coronary artery disease/RI wit h prior stenting/2 vessel CABG (remote - vein graft to LAD and RCA, RCA and vein graft to RC A occluded on 10/2015 cardiac cath), ischemic cardiomyopathy LVEF had been 40-45% with inferi or/inferobasal hypokinesis by 08/2017 echocardiogram, sick sinus syndrome s/p dual chamber M edtronic pacemaker 09/2016, hypertension, hyperlipidemia, type II diabetes mellitus, chronic kidney disease, prior DVT on warfarin, peripheral neuropathy, chronic joint infection on pr ophylactic antibiotics, and recent COVID19 diagnosis (with pneumonia per [facility] office note 07/11/20). He presented to [facility] 07/16/20 after fall vs sync ope with down time of reportedly 9 hours, found to have rhabdomyolysis CK 1504, acute kidney injury creatinine 1.98, hypoglycemia glum reported 40 (EMS). He does not remember what hap pened, whether he fell or lost consciousness. He reports he just woke up on the floor. He was not found by his for several hours. His initial troponin 0.014. He was also febril e, with oral lesions/erythematous posterior pharynx and COVID19+, although it appears that oumou olivares contracted this illness last month after attending a . He was ultimately transferre d to ICU for persistent hypotension requiring IV pressors. His echocardiogram demonstrated a drop in LV systolic function to 25-30% with wall motion abnormalities. He was then [place] [facility] [place]. Telemetry strips from [place] showed frequent PVC s and nonsustained VT. Upon presentation [place] [facility], his troponin was elevated, 1.265 (now trending down, 0.815) and C K 2937 insistent with rhabdomyolysis. Creatinine 1.95. His BNP was elevated 772 but no signi ficant pulmonary edema or effusion on CXR. Mild thrombocytopenia, PLT 146. INR therapeutic 2 .6. No ECG for review. He is currently in the ICU, transitioned off IV pressors yesterday, S BP 100-140 mmHg today. He is tachycardic, heart rate ~ 100 bpm with appearance of sinus rhyt hm by telemetry with first degree AV block and RBBB. Cardiology has been consulted for furth er evaluation and management due to findings on outside echocardiogram. Review of telemetr y demonstrates frequent ventricular ectopy, nonsustained ventricular tachycardia. He has been noncompliant with cardiology follow-up, he has not been seen in cardiology clin ic since February 2017. He was last seen in EP clinic (his only visit there) in December,, he was followed for known elevated capture threshold on his RV pacemaker lead, present since im [place]. His last remote pacemaker interrogation was March 2019. Multiple attempts to co ntact the patient to re-establish have been made by our office since. EVENTS OVERNIGHT: He denies current or recent chest pain/pressure, shortness of breath, or thopnea, palpitations, lightheadedness. Past Medical History: Diagnosis Date Ankylosing spondylitis ([facility]) Arthritis Beta Blockers - Daily Use 07/22/2017 CAD (coronary artery disease) severe multivessel CAD Cardiac pacemaker in situ - MEDTRONIC 10/24/2016 Medtronic - Placed Sep 2016 for sick sinus syndrome Chronic kidney disease Chronic renal insufficiency, stage 4 (severe) ([facility]) 02/10/2019 Chronic sinusitis Coronary artery disease involving autologous artery coronary bypass graft, angina prese nce unspecified 10/31/2015 SVG to the RCA occluded Deep vein thrombosis (DVT) ([facility]) Diabetes mellitus type II Diverticulosis Dysphagia GERD (gastroesophageal reflux disease) Hyperlipidemia Hypertension 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 STOP BANG Score 6 (High risk SEUN), does not want a sleep study, would not a ccept CPAP if prescribed. Peripheral neuropathy S/P CABG x 2 SVG to the LAD was patent on cardiac cath 2015 Sick sinus syndrome ([facility]) s/p pacemaker Systolic heart failure ([facility]) Unspecified visual disturbance Past Surgical History: Procedure Laterality Date ABDOMEN SURGERY APPENDECTOMY CARDIAC CATHERIZATION COLONOSCOPY 2014 COLONOSCOPY CORONARY ANGIOPLASTY WITH STENT PLACEMENT CORONARY ARTERY BYPASS GRAFT CORONARY ARTERY BYPASS GRAFT EYE SURGERY KNEE SURGERY Right 09/07/2013 Procedure: KNEE - TOTAL; Surgeon: Drew Hurst MD; Location: [facility]; Service : Orthopedics; Laterality: Right; alisha component.br OTHER SURGICAL HISTORY CATARACT EXTRACTION OTHER SURGICAL HISTORY PHRENIC NERVE PACEMAKER IMPLANTATION PACEMAKER INSERTION Medtronic SINUS SURGERY TONSILLECTOMY AND ADENOIDECTOMY UPPER GASTROINTESTINAL ENDOSCOPY N/A 07/31/2017 Procedure: EGD with Dilation; Surgeon: Willow Colin MD; Location: [facility] UPPER GASTROINTESTINAL ENDOSCOPY N/A 02/10/2019 Procedure: EGD WITH DILITATION; Surgeon: Willow Colin MD; Location: [facility] UN[facility] VASECTOMY Allergies Allergen Reactions Omeprazole Other (See Comments) Sulfa Antibiotics Rash and Hives Medications Prior to Admission Medication Sig Dispense Refill acetaminophen-codeine (TYLENOL #3) 300-30 MG per tablet Take 1 tablet by mouth Twice d aily as needed for Pain . [] azithromycin (ZITHROMAX) 250 mg tablet Take 250 mg by mouth Daily 4 days only . cephalexin (KEFLEX) 500 mg capsule Take 500 mg by mouth 2 times daily. cholecalciferol (VITAMIN D-3) 50 mcg (2,000 units) tablet Take 50 mcg by mouth Daily. fish oil 1,000 mg capsule Take 1,000 mg by mouth Daily. folic acid (FOLVITE) 400 MCG tablet Take 400 mcg by mouth Daily. glipiZIDE (GLUCOTROL) 10 MG tablet Take 20 mg by mouth 2 times daily (before meals) . hydroxychloroquine (PLAQUENIL) 200 mg tablet Take 200 mg by mouth Daily. magnesium oxide (MAG-OX) 400 mg tablet Take 400 mg by mouth Daily. metoprolol succinate (TOPROL-XL) 25 mg 24 hr tablet Take 25 mg by mouth Daily. Multiple Vitamins-Minerals (EYE MULTIVITAMIN/LUTEIN) TABS Take 1 tablet by mouth Daily. niacin 500 mg tablet Take 500 mg by mouth 3 times daily (with meals) . SITagliptin (JANUVIA) 50 MG tablet Take 50 mg by mouth Daily. torsemide (DEMADEX) 20 mg tablet Take 20 mg by mouth 2 times daily May take 40 mg BID i f needed. warfarin (COUMADIN) 2.5 mg tablet Take 2.5 mg by mouth Daily . Scheduled Medications aspirin 81 mg Oral Daily atorvaSTATin 20 mg Oral Nightly cephalexin 500 mg Oral BID cholecalciferol 2,000 Units Oral Daily docusate sodium 100 mg Oral BID famotidine 20 mg Oral Q48H insulin lispro 0-6 Units Subcutaneous 4x Daily AC and HS metoprolol succinate 25 mg Oral Daily nystatin 500,000 Units Swish & Swallow 4x Daily warfarin 2.5 mg Oral Daily - Warfarin warfarin per pharmacy Other Pharmacy Consult Continuous Infusions dextrose 10% sodium chloride 0.9% 75 mL/hr at 07/20/20 1426 PRN Medications acetaminophen, yitfkpqzogSWFWO-lfcqif-cudagihpf mouthwash (ADS admixture), bisacodyl, Hypog lycemia Management AND POCT Glucose AND dextrose AND dextrose 10%, Magnesium rep lacement - NON ICU AND Magnesium AND magnesium oxide AND magnesium sulfate AND magnesium sulfate, ondansetron, polyethylene glycol, Potassium replacement - NON ICU AN D Potassium AND potassium chloride AND potassium chloride AND potassium chlori de IVPB (other volumes & diluents) AND potassium chloride IVPB (other volumes & diluents ) PHYSICAL EXAM Vital Signs: BP 122/61 | Pulse 92 | Temp 36.8 C (98.3 F) (Oral) | Resp 20 | Ht 1.702 m (5' 7") | Wt 77.8 kg (171 lb 9.6 oz) | SpO2 94% | BMI 26.88 kg/m TELEMETRY: Sinus tachycardia, frequent PVCs in a pattern of ventricular trigeminy, ventricu lar couplets I/O yesterday: 700 / 850, + 1326 so far today from IVF, net +526 since admission GENERAL: Chronically ill-appearing elderly male, in no distress. Appears approx imately stated age. HEENT: Normocephalic, atraumatic. Caitlyn-oral ulcers, thrush of tongue EYES: PERRL, sclerae anicteric, no xanthelsasmas MOUTH: Oral mucosae moist, dentition adequate, no lesions noted NECK: No JVD, lymphadenopathy, thyromegaly, bruits. Carotid pulses are 2+ bilaterally LUNGS: Left basilar rales, no rhonchi or wheezing noted, respirations unlabored HEART: Left-sided pacemaker pocket appears normal, well-healed sternotomy incision. Nondis placed PMI, mildly tachycardic rate, regular rhythm, S1, S2 normal. No murmurs, rubs or gal lops noted. ABDOMEN: Soft, nontender, no organomegaly, masses or bruits. Bowel sounds are normal in a ll 4 quadrants. The abdominal aortic pulsation is not palpable. EXTREMITIES: Left upper extremity ecchymoses and edema. Radial pulses 2+ bilaterally. Femo ral pulses are 2+ bilaterally without bruits. DP and PT pulses are 2+ bilaterally. SKIN: Warm and dry, capillary refill is normal, marked bilateral pretibial hyperpigmentati on with xwsw-xfpje-wwmn desquamation. NEUROLOGIC: Awake, alert and oriented x 3. No focal motor deficits. PSYCHIATRIC: Appropriate, affect appears normal DATA Recent Labs Lab 07/20/20160607/20/[id number]/18/20 1737 NA -- 137 -- -- 142 -- 133* K -- 3.9 -- -- 3.8 -- 4.2 CL -- 102 -- -- 104 -- 97* CO2 -- 29 -- -- 28 -- 33* BUN -- 28* -- -- 26* -- 28* CREA -- 2.08* -- -- 1.81* -- 1.95* EGFR -- 31* -- -- 36* -- 33* GLU -- 88 -- -- 80 -- 132* MG -- 2.3 -- -- 2.1 -- 1.9 CALCIUM -- 7.9* -- -- 6.6* -- 7.6* PHOS -- -- -- -- 2.4 -- 2.5 AST -- -- -- -- -- -- 140* ALT -- -- -- -- -- -- 41 ALKPHOS -- -- -- -- -- -- 37 ALBUMIN -- -- -- -- -- -- 3.2* BNP -- -- -- -- -- -- 772.50* CK 1,558* 1,876* 2,359* -- -- 2,174* 2,937* CKMB -- -- -- -- -- 2.6 3.0 TSH -- 0.372* 0.249* < > -- -- -- CHOL -- 94 -- -- -- -- -- HDL -- 19* -- -- -- -- -- LDL -- 38 -- -- -- -- -- < > = values in this interval not displayed. Recent Labs Lab 07/20/[id number]/20/[id number] 1737 TROPONIN -- -- -- 0.815* 1.265* CK 1,558* 1,876* 2,359* 2,174* 2,937* CKMB -- -- -- 2.6 3.0 Free T4 1.3 ECHO (07/18/20 ([facility]): Mildly dilated left ventricular cavity. Left ventricular systolic function is severely reduced. The ejection fraction is visually e stimated at 25-30%. There is severe hypokinesis of almost all segments, with akinesis of the basal inferior and basal inferolateral segments, near akinesis of the mid inferoseptal and apical septal segments, b ut fairly normal contractility of the basal anteroseptal segment. Grade I diastolic dysfunction with normal left atrial pressure. Normal right ventricular size and function. Mild mitral regurgitation. No prior study available for visual comparison. PCXR (07/18/20): Minimal linear bibasilar opacities to likely resent atelectasis and/or airspace disease. Q uestion tiny bilateral pleural effusions. Echo (08/06/17): 1. The left ventricle cavity size is [...] valves. 5. There is no pericardial effusion. Lexiscan Cardiolite Stress test: (10/10/15): 1. Abnormal study. Mild distal inferior and apical ischemia. LVEF 53 % 2. Stress ECG: Negative for Lexiscan-induced ischemia. 3. No arrhythmias detected. 4. No Lexiscan induced chest pain. 5. No previous test for comparison. Cardiac catheterization (10/31/15): The coronary system was right dominant. 1. Left main bifurcated into LAD and left circumflex. Left main was free of disease. 2. Left anterior descending artery had 70% proximal stenosis followed by widely patent sten t. The LAD then continued and one could see the vein graft to the LAD filling retrograde. The rest of the LAD was free of disease. The first ailyn gonal branch was small and arising from a previously implanted stent and had a 90% tubular s tenosis. The second diagonal branch was a moderate-sized vessel and had an 85% ostial lesion . 3. The ramus branch had a 40% stenosis. 4. Left circumflex coronary artery and the marginal branches were free of disease. Extensiv tylor collaterals were seen from left to right, feeding the PDA and DIANE branches separately. The PDA and DIANE branches bifurcation appeared to be to tally occluded. 5. Right coronary artery was totally occluded and had evidence of previously implanted sten t. The only conus branch could be seen by engagement. VEIN GRAFT ANGIOGRAPHY 1. Vein graft to the RCA was totally occluded. 2. Vein graft to the LAD was widely patent. LEFT VENTRICULOGRAM akinetic inferior basal segment with hypokinetic inferior wall. Ejection fraction of 45%. PROBLEM LIST Principal Problem: Shock Active Problems: CAD (coronary artery disease) Diabetes mellitus, type II - ORAL Control GERD (gastroesophageal reflux disease) Hypertension Atrial fibrillation Heart block Hyperlipidemia Infection of prosthetic right knee joint Ischemic cardiomyopathy Systolic heart failure Pacemaker Coronary artery disease involving coronary bypass graft without angina pectoris COVID-19 Cardiac pacemaker in situ - cWyze ASSESSMENT & PLAN 1. Rhabdomyolysis, s/p fall vs syncope with prolonged down time. He does not remember what happened to him. Significant hypoglycemia was noted on initial evaluation by EMS. His pace maker interrogation 07/19/2020 showed no clinically significant arrhythmias corresponding to that time frame. 2. Hypotension / Shock, resolved, likely multifactorial. 3. Chronic kidney disease, stage III-IV. His current renal function is actually slightly i mproved compared to labs from 06/08/19, so this may be his baseline. A nephrology evaluation during this admission is warranted, as his compromised renal function is limiting the use o f Entresto (or ACEI / ARB agents) and coronary angiography, that should otherwise be done.Th ere has been no improvement in his renal function since admission. 4. Mild troponin elevation, likely myocardial injury / troponin "leak" from rhabdomyolysis and hypotension. He will require eventual ischemic evaluation, as noted below. 5. Nonsustained ventricular tachycardia, frequent PVCs on telemetry, pacemaker interrogatio n. He will need eventual cardiac catheterization and beta afua therapy as below, but bet a afua was held due to hypotension. His BP will now tolerate it, and he was started on T oprol XL 25 mg, increase to 50 mg daily today. He was advised he is at risk for life-threat ening ventricular arrhythmia/cardiac arrest due to his reduced LV systolic function, and tre ulluis be considered for an upgrade to an AICD for primary prevention of sudden cardiac i f he fails to respond to medical therapy. 6. SVT noted on pacemaker interrogation, approximately 5 minutes in duration. He will need to re-establish care with EP, this is not an acute issue right now but continue telemetry. 7. Sinus tachycardia, mild, likely compensatory. TSH was low, see #19, below. 8. History of CAD with prior stenting followed by CABG x 2 with vein graft to LAD, vein gra ft to RCA His last cardiac catheterization October 2015 showed both the [place] RCA and its vein graft were occluded. There were anqt-re-flyod collaterals to the RPDA and RPLA (occlusi on at their bifurcation). The vein graft to the LAD was patent at that time, and there were no significant lesions in the left circumflex system. As he now has worsening LV systolic fu nction, he will ultimately require angiogram to help assess for an underlying ischemic cause of this problem, but need to defer at this time due to other acute issues, specifically his severely compromised renal function. He is on aspirin 81 mg, atorvastatin and Toprol-XL wi ll be increased to 50 mg daily. He appears to have significant infarct based on wall motion abnormalities on echocardiogram and high RV pacing threshold is likely due to RV scarring fr om his inferior RI. Wall motion abnormalities in the RCA territory have been documented prev iously. 9. Ischemic cardiomyopathy, LVEF was 40-45% by his echocardiogram 2017, and is now down to 25-30%. His BNP is elevated, but he has no other signs or symptoms of congestive heart fail ure, and would be classified as having chronic systolic heart failure, class C, NYHA class I .. He is not having anginal symptoms, therefore there is no indication for urgent cardiac ca theterization. This will need to be deferred until there is some improvement of his renal f unction. GDMT is currently complicated by ALVINO and recent shock just off pressors since yeste rday. Once his blood pressure proves to be stable and able to tolerate heart failure beta bl chavo will initiate therapy. Once his renal function recovers can consider ACEi/ARB vs Entre sto. He does not appear volume overloaded at this time. 10. Sick sinus syndrome s/p dual chamber Medtronic pacemaker 09/2016, interrogated 0, with chronically elevated RV capture threshold 6V @ 1.2 ms indicating extensive scarring of the myocardium likely from prior myocardial infarction. Otherwise normal device function. Additionally noted was a 1 second run of nonsustained VT on 07/15/20 and SVT x 5 minutes on 07/17/20 with average ventricular rate 158 bpm. 11. History of essential Hypertension. 12. Hyperlipidemia. He was on niacin prior to admission, atorvastatin started, lipid panel shows adequate control on atorvastatin 20 mg, LDL 38, but very low HDL of 19 13. Type II diabetes mellitus - Hypoglycemic on EMS arrival. 14. Prior DVT on warfarin, INR therapeutic 15. Peripheral neuropathy 16. 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 17. Recent COVID19 diagnosis in May, with reported pneumonia on 07/11/20 (from outpatient clinic progress note), not seen on PCXR 07/18/20. He has been afebrile since admission and is likely no longer contagious, but still on precautions. 18. ? Subclinical Hyperthyroidism, TSH 0.249 on 07/19/20, 0.372 on recheck, with a normal fr ee T4 19. Thrush, being treated I will be off this weekend. Manuel Rothman MD, will cover. Code Status: Full Code roctor, Amparo Faustin [facility] - 07/20/2020 3:33 PM PDT Pharmacy Warfarin Monitoring: Duane Mas male 80 y.o. admitted on 07/18 for cardiogenic shock, possible septic shock (transfer from [facility]) INDICATION: DVT OTHER ANTICOAGULATION: none identified DRUG INTERACTIONS: no significant DDI (cephalexin [employer]) PATIENT DIET: carb consistent Bleed risk: moderate, recent fall [employer] regimen: 2.5 mg daily - confirmed with patient , Beth, via pill bottle identificat ion and also confirmed with patient pharmacy (Jaquelin Melissa), and records from MD office [facility] Recent Labs Lab 07/20/20 0553 07/19/20 1603 07/19/20 0423 07/18/20 1737 HGB 12.4* -- 12.2* 13.4 PLT 131* -- 120* 146* INR 2.7 2.6 -- 2.6 DATE 07/20 07/19 07/18 INR 2.7 2.7 2.6, 2.6 Warfarin Dose 2.5 mg planned 2.5 mg Unknown, dose held Assessment: The INR is Within the target range of 2-3 Will continue with [employer] dose of 2.5 mg tonight as long as INR is within range Plan: Warfarin 2.5 mg po today INR in am Pharmacy will continue to follow and modify therapy as indicated. Amparo Clark RPH 3:32 PM PDT 07/20/2020 ordon Bragg U - 07/20/2020 9:59 AM PDT Service: Hospitalist Progress Note Pt: Duane Mas AGE/SEX: 80 y.o. male ROOM: 9106/9106-01 : 1940 PCP: Erin Forrester MD ADMIT DATE: 07/18/2020 TODAY'S DATE: 07/20/2020 Hospital Day/Hospital Course: LOS: 2 days Per ICU 80 y.o.malewith significant past medical history of DM2, CKD 4, CAD, 2V CABG 2000, SV t o LAD and SV to PDA, SSS s/p medtronic dual chamber PPM/ICD, Ischemic cardiomyopathy,Sever e sigmoid diverticulosiswho presents to [facility] after an episode of fall.Patient was trying to go to bed on07/15when he slid out of his chair and fell down.Apparentl y he was down on the floor for around 9 hours since his was in another room she could n ot hear him.He was lying on the left side on his shoulder.He did not hit his head. Occasionally he went in and out but unable to tell me if he had a complete syncopal episod e.This fall was likely mechanical and he felt dizzy before having this fall.He had n o nausea vomiting patient was also tested positive for COVID in May 2020.He and his w mike attended a at this time and his did not feel good hence both got tested and both were positive for COVID-19.Eventually the patient was found in the morning after w kojoh he presented to the emergency roomon 07/16.He was initially found to be hypoglycem ic with a blood sugar of 40 hence he received D50. initially when patient was admitted to the hospital CK was elevated [id number].Hence kassy ent also received fluid resuscitation for rhabdomyolysis and was kept on maintenance fluid a t 125 cc/h. On 07/17,his CK worsened [id number].His troponin was only 0.014.Also he c ontinued to have soft blood pressures.Hence he was transferred to ICU in [facility] . On 07/18,he was also started on [id number] hypertension.Seems patient was al so continued on torsemide 20 mg twice a day and metoprolol 5 mg IV every 6 hours. TTEdone on07/18/20 Mild dilated left ventricular cavity LV systolic function is severely reduced with EF of 25 to 30%.Severe hypokinesis of all segments.Akinesis of the basal inferior and basal inferolateral segments near akinesis of the mid inferoseptal and apical segments.Grade 1 diastolic dysfunction with normal left atrial pressure.Normal RV size and function. Mild MR.IVC respiratory change in dimension greater than 50% and appears normal Other pertinent labson 07/17,[id number],INR 3.3,creatinine 1.89,hemoglobin 13.5,W BC 11.7,ESR 78. 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 Given his significant cardiac history, TTEshowing severe hypokinesis and EF of 25 to 30%, new pressor requirement,[facility] to [facility] patient is awake alert and oriented x3.He is comfortably resting in bed.Systolic blood pressure 160 heart rate within 70.His main complaint was left shoulder pain." ICU Timeline: 07/18- Admitted to ICU, on pressors. Started on zosyn for empiric coverage due to shock s isa. COVID-19 positive. On 2L NC. SUBJECTIVE: Patient seen and examine. No chest pain, SOB, LAL. No cough on recumbency. Had no orthopne a or PND. No Abdominal pain, N/V or fever. Still feeling tired and fatigued. No dizziness or lightheadedness. Scheduled Medications: aspirin 81 mg Oral Daily atorvaSTATin 20 mg Oral Nightly cephalexin 500 mg Oral BID cholecalciferol 2,000 Units Oral Daily docusate sodium 100 mg Oral BID famotidine 20 mg Oral Q48H insulin lispro 0-6 Units Subcutaneous 4x Daily AC and HS nystatin 500,000 Units Swish & Swallow 4x Daily warfarin per pharmacy Other Pharmacy Consult Continuous Infusions dextrose 10% PRN Medications acetaminophen, blzyuevyulESSRT-amjrpy-puntadppb mouthwash (ADS admixture), bisacodyl, Hypog lycemia Management AND POCT Glucose AND dextrose AND dextrose 10%, Magnesium rep lacement - NON ICU AND Magnesium AND magnesium oxide AND magnesium sulfate AND magnesium sulfate, ondansetron, polyethylene glycol, Potassium replacement - NON ICU AN D Potassium AND potassium chloride AND potassium chloride AND potassium chlori de IVPB (other volumes & diluents) AND potassium chloride IVPB (other volumes & diluents ) Allergy: Allergies Allergen Reactions Omeprazole Other (See Comments) Sulfa Antibiotics Rash and Hives OBJECTIVE: Vitals: Patient Vitals for the past 24 hrs: BP Temp Temp src Pulse Resp SpO2 07/20/20 0744 114/62 37.7 C (99.9 F) Oral 105 25 95 % 07/20/20 0503 118/59 37.5 C (99.5 F) Oral 103 24 93 % 07/20/20 0030 108/59 36.8 C (98.3 F) Oral 101 26 93 % 07/19/20 1937 101/59 36.8 C (98.2 F) Oral 106 25 93 % 07/19/20 1600 115/75 (!) 38.2 C (100.8 F) 07/19/20 1515 110 27 91 % 07/19/20 1500 109 26 92 % 07/19/20 1445 108/58 99 25 92 % 07/19/20 1430 100 27 93 % 07/19/20 1415 101 26 92 % 07/19/20 1400 101 23 92 % 07/19/20 1300 105 92 % 07/19/20 1200 106/68 (!) 38.2 C (100.8 F) 104 26 94 % 07/19/20 1145 116 24 07/19/20 1130 112/73 115 27 96 % 07/19/20 1115 103/59 110 28 95 % 07/19/20 1100 104/58 109 26 96 % 07/19/20 1000 109/59 111 25 96 % I&O Detailed Table: Intake/Output Summary (Last 24 hours) at 07/20/2020 0959 Last data filed at 07/20/2020 0500 Gross per 24 hour Intake 200 ml Output 500 ml Net -300 ml Patient Vitals for the past 96 hrs: Weight 07/19/20 0330 77 kg (169 lb 12.1 oz) 07/18/20 1600 83.5 kg (184 lb 1.4 oz) Hemodynamics Last 24hrs: Physical Examination: Constitutional: Alert and oriented to person, place, and time. HEENT: Neck supple, no JVD, non icteric sclera. Cardiovascular: Normal rate, regular rhythm, normal heart sounds with S1 and S2, and intact distal pulses. Exam reveals no gallop and no friction rub. No murmur heard. Pulmonary/Chest: Clear bilateral. Abdominal: Soft. Bowel sounds are normal. exhibits no distension and no mass. There is no t enderness. There is no rebound and no guarding. Extremeties/Musculoskeletal: Normal range of motion.exhibits no tenderness. Left arm swell ing and bruising. Neurological: Alert and oriented to person, place, and time. Skin: Skin is warm and dry. No rash noted. No erythema. No pallor. Psychiatric: Has a normal mood and affect. Behavior is normal. Judgment normal. Not suicida l LABS: Recent Labs Lab 07/20/20 0553 07/19/20 0423 07/18/20 1737 WBC 9.63 9.62 11.17* HGB 12.4* 12.2* 13.4 HCT 36.8* 37.1* 39.7 PLT 131* 120* 146* MONOPCT 11.40 11.10 10.50 Recent Labs Lab 07/20/20 0553 07/19/20 0423 07/18/20 1737 NA 137 142 133* K 3.9 3.8 4.2 CL 102 104 97* CO2 29 28 33* BUN 28* 26* 28* CALCIUM 7.9* 6.6* 7.6* ALKPHOS -- -- 37 ALT -- -- 41 AST -- -- 140* Phosphorus: Lab Results Component Value Date PHOS 2.4 07/19/2020 Recent Labs Lab 07/20/20 0553 07/19/20 0423 07/18/20 1737 MG 2.3 2.1 1.9 Recent Labs Lab 07/20/20 0553 07/19/20 1603 07/18/20 1737 INR 2.7 2.6 2.6 PTT -- -- 54* Recent Labs Lab 07/19/20 1603 TSH 0.249* Diagnostic Imaging: Impressions only: Recent Results (from the past 360 hour(s)) XR Chest AP Portable Impression Minimal linear bibasilar opacities to likely resent atelectasis and/or airspace disease. Question tiny bilateral pleural effusions. Final Report Signed by: Negro Palmer Chet Sign Date/Time: 07/18/2020 7:33 PM XR Shoulder Left 2 + Vw Impression No evidence for fracture. Moderate acromioclavicular joint degenerative change. Final Report Signed by: Negro Palmer Chet Sign Date/Time: 07/18/2020 7:32 PM PROBLEM LIST Principal Problem: Shock Active Problems: CAD (coronary artery disease) Diabetes mellitus, type II - ORAL Control GERD (gastroesophageal reflux disease) Hypertension Atrial fibrillation Heart block Hyperlipidemia Infection of prosthetic right knee joint Ischemic cardiomyopathy Systolic heart failure Pacemaker Coronary artery disease involving coronary bypass graft without angina pectoris COVID-19 Cardiac pacemaker in situ - MEDTRONIC Resolved Problems: * No resolved hospital problems. * ASSESSMENT & PLAN 80 y.o.malewith significant past medical history of DM2, CKD 4, CAD, 2V CABG 2000, SV t o LAD and SV to PDA, SSS s/p medtronic dual chamber PPM/ICD, Ischemic cardiomyopathy,Sever e sigmoid diverticulosiswho presents to [facility] after an episode of fall. Principal Problem: Shock He was in cardiogenic shock. That had resolved. No pressors at this time. Active Proble ms: CAD (coronary artery disease) Mildly elevated troponin. Candidate for left heart cath due to renal insufficiency. Diabetes mellitus, type II - ORAL Control Type 2 diabetes is appropriately controlled. GERD (gastroesophageal reflux disease) On ppi Rhabdomyolysis: CPK close to 2000. Start him on hydration. Hypertension Along with history of atrial fibrillation . Already on warfarin. Heart block Following up with the cardiology. He had a pacemaker. Also had hyperlipidemia Infection of prosthetic right knee joint On chronic Keflex Acute renal failure: More likely volume depletion. I do not think that he is in congestive heart failure. Sta rt him on hydration ischemic cardiomyopathy Along with chronic systolic heart failure . Seems like compensated. COVID-19 He is having a fever. I doubt it is related to the COVID. He was diagnosed with COVID in May. He is status post cardiac pacemaker in situ - MEDTRONIC Resolved Problems: * No resolved hospital problems. * Disposition: DC plan 2 to 3 days Communication thread: I called Beth Kidzloop # [phone] on July 20 at 1208 and answered all the question Gordon Bragg MD, FACP 07/20/2020 9:59 AM PDT Portions of this chart may have been copied from previous notes for continuity of care purp ose Portions of this chart may have been created with [employer] voice recognition software. Occasi onal wrong-word or sound-alike substitutions may have occurred due to the inherent olson itations of voice recognition software. Please read the chart carefully and recognize, using context, where these substitutions have occurred. e, Sebas Lopez MD - 07/20 8:57 AM PDT [facility] Service: Cardiology Progress Note Date of Admission: 07/18/2020 BRIEF CLINICAL HISTORY: 80 y.o. male with prior history of coronary artery disease/RI wit h prior stenting/2 vessel CABG (remote - vein graft to LAD and RCA, RCA and vein graft to RC A occluded on 10/2015 cardiac cath), ischemic cardiomyopathy LVEF had been 40-45% with inferi or/inferobasal hypokinesis by 08/2017 echocardiogram, sick sinus syndrome s/p dual chamber M edtronic pacemaker 09/2016, hypertension, hyperlipidemia, type II diabetes mellitus, chronic kidney disease, prior DVT on warfarin, peripheral neuropathy, chronic joint infection on pr ophylactic antibiotics, and recent COVID19 diagnosis (with [facility] He presented to [facility] 07/16/20 after fall vs sync ope with down time of reportedly 9 hours, found to have rhabdomyolysis CK 1504, acute kidney injury creatinine 1.98, hypoglycemia glum reported 40 (EMS). He does not remember what hap pened, whether he fell or lost consciousness. He reports he just woke up on the floor. He was not found by his for several hours. His initial troponin 0.014. He was also febril e, with oral lesions/erythematous posterior pharynx and COVID19+, although it appears that oumou olivares contracted this illness last month after attending a . He was ultimately transferre d to ICU for persistent hypotension requiring IV pressors. His echocardiogram demonstrated a drop in LV systolic function to 25-30% with wall motion abnormalities. He was then transfer [place] [facility] [place] of [place]. Telemetry strips from [place] showed frequent PVC s and nonsustained VT. Upon presentation to [facility], his troponin was elevated, 1.265 (now trending down, 0.815) and C K 2937 insistent with rhabdomyolysis. Creatinine 1.95. His BNP was elevated 772 but no signi ficant pulmonary edema or effusion on CXR. Mild thrombocytopenia, PLT 146. INR therapeutic 2 .6. No ECG for review. He is currently in the ICU, transitioned off IV pressors yesterday, S BP 100-140 mmHg today. He is tachycardic, heart rate ~ 100 bpm with appearance of sinus rhyt hm by telemetry with first degree AV block and RBBB. Cardiology has been consulted for furth er evaluation and management due to findings on outside echocardiogram. Review of telemetr y demonstrates frequent ventricular ectopy, nonsustained ventricular tachycardia. He has been noncompliant with cardiology follow-up, he has not been seen in cardiology clin ic since February 2017. He was last seen in EP clinic (his only visit there) in December,, he was followed for known elevated capture threshold on his RV pacemaker lead, present since plantation. His last remote pacemaker interrogation was March 2019. Multiple attempts to co ntact the patient to re-establish have been made by our office since. EVENTS OVERNIGHT: He denies current or recent chest pain/pressure, shortness of breath, or thopnea, palpitations, lightheadedness. Past Medical History: Diagnosis Date Ankylosing spondylitis ([facility]) Arthritis Beta Blockers - Daily Use 07/22/2017 CAD (coronary artery disease) severe multivessel CAD Cardiac pacemaker in situ - MEDTRONIC 10/24/2016 Medtronic - Placed Sep 2016 for sick sinus syndrome Chronic kidney disease Chronic renal insufficiency, stage 4 (severe) ([facility]) 02/10/2019 Chronic sinusitis Coronary artery disease involving autologous artery coronary bypass graft, angina prese nce unspecified 10/31/2015 SVG to the RCA occluded Deep vein thrombosis (DVT) ([facility]) Diabetes mellitus type II Diverticulosis Dysphagia GERD (gastroesophageal reflux disease) Hyperlipidemia Hypertension 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 STOP BANG Score 6 (High risk SEUN), does not want a sleep study, would not a ccept CPAP if prescribed. Peripheral neuropathy S/P CABG x 2 SVG to the LAD was patent on cardiac cath 2015 Sick sinus syndrome ([facility]) s/p pacemaker Systolic heart failure ([facility]) Unspecified visual disturbance Past Surgical History: Procedure Laterality Date ABDOMEN SURGERY APPENDECTOMY CARDIAC CATHERIZATION COLONOSCOPY 2014 COLONOSCOPY CORONARY ANGIOPLASTY WITH STENT PLACEMENT CORONARY ARTERY BYPASS GRAFT CORONARY ARTERY BYPASS GRAFT EYE SURGERY KNEE SURGERY Right 09/07/2013 Procedure: KNEE - TOTAL; Surgeon: Drew Hurst MD; Location: [facility]; Service : Orthopedics; Laterality: Right; alisha component.br OTHER SURGICAL HISTORY CATARACT EXTRACTION OTHER SURGICAL HISTORY PHRENIC NERVE PACEMAKER IMPLANTATION PACEMAKER INSERTION Medtronic SINUS SURGERY TONSILLECTOMY AND ADENOIDECTOMY UPPER GASTROINTESTINAL ENDOSCOPY N/A 07/31/2017 Procedure: EGD with Dilation; Surgeon: Willow Colin MD; Location: [facility] UPPER GASTROINTESTINAL ENDOSCOPY N/A 02/10/2019 Procedure: EGD WITH DILITATION; Surgeon: Willow Colin MD; Location: [facility] UN[facility] VASECTOMY Allergies Allergen Reactions Omeprazole Other (See Comments) Sulfa Antibiotics Rash and Hives Medications Prior to Admission Medication Sig Dispense Refill acetaminophen-codeine (TYLENOL #3) 300-30 MG per tablet Take 1 tablet by mouth Twice d aily as needed for Pain . [] azithromycin (ZITHROMAX) 250 mg tablet Take 250 mg by mouth Daily 4 days only . cephalexin (KEFLEX) 500 mg capsule Take 500 mg by mouth 2 times daily. cholecalciferol (VITAMIN D-3) 50 mcg (2,000 units) tablet Take 50 mcg by mouth Daily. fish oil 1,000 mg capsule Take 1,000 mg by mouth Daily. folic acid (FOLVITE) 400 MCG tablet Take 400 mcg by mouth Daily. glipiZIDE (GLUCOTROL) 10 MG tablet Take 20 mg by mouth 2 times daily (before meals) . hydroxychloroquine (PLAQUENIL) 200 mg tablet Take 200 mg by mouth Daily. magnesium oxide (MAG-OX) 400 mg tablet Take 400 mg by mouth Daily. metoprolol succinate (TOPROL-XL) 25 mg 24 hr tablet Take 25 mg by mouth Daily. Multiple Vitamins-Minerals (EYE MULTIVITAMIN/LUTEIN) TABS Take 1 tablet by mouth Daily. niacin 500 mg tablet Take 500 mg by mouth 3 times daily (with meals) . SITagliptin (JANUVIA) 50 MG tablet Take 50 mg by mouth Daily. torsemide (DEMADEX) 20 mg tablet Take 20 mg by mouth 2 times daily May take 40 mg BID i f needed. warfarin (COUMADIN) 2.5 mg tablet Take 2.5 mg by mouth Daily . Scheduled Medications aspirin 81 mg Oral Daily atorvaSTATin 20 mg Oral Nightly cephalexin 500 mg Oral BID cholecalciferol 2,000 Units Oral Daily docusate sodium 100 mg Oral BID famotidine 20 mg Oral Q48H insulin lispro 0-6 Units Subcutaneous 4x Daily AC and HS nystatin 500,000 Units Swish & Swallow 4x Daily warfarin per pharmacy Other Pharmacy Consult Continuous Infusions dextrose 10% PRN Medications acetaminophen, tcddokqhmgBJEJP-[id number] mouthwash (ADS admixture), bisacodyl, Hypog lycemia Management AND POCT Glucose AND dextrose AND dextrose 10%, Magnesium rep lacement - NON ICU AND Magnesium AND magnesium oxide AND magnesium sulfate AND magnesium sulfate, ondansetron, polyethylene glycol, Potassium replacement - NON ICU AN D Potassium AND potassium chloride AND potassium chloride AND potassium chlori de IVPB (other volumes & diluents) AND potassium chloride IVPB (other volumes & diluents ) PHYSICAL EXAM Vital Signs: BP 114/62 | Pulse 105 | Temp 37.7 C (99.9 F) (Oral) | Resp 25 | Ht 1.702 m (5' 7") | Wt 77 kg (169 lb 12.1 oz) | SpO2 95% | BMI 26.59 kg/m TELEMETRY: Sinus tachycardia, frequent PVCs in a pattern of ventricular trigeminy, ventricu lar couplets I/O yesterday: GENERAL: Chronically ill-appearing elderly male, in no distress. Appears approx imately stated age. HEENT: Normocephalic, atraumatic. EYES: PERRL, sclerae anicteric, no xanthelsasmas MOUTH: Oral mucosae moist, dentition adequate, no lesions noted NECK: No JVD, lymphadenopathy, thyromegaly, bruits. Carotid pulses are 2+ bilaterally LUNGS: Left basilar rales, no rhonchi or wheezing noted, respirations unlabored HEART: Left-sided pacemaker pocket appears normal, well-healed sternotomy incision. Nondis placed PMI, mildly tachycardic rate, regular rhythm, S1, S2 normal. No murmurs, rubs or gal lops noted. ABDOMEN: Soft, nontender, no organomegaly, masses or bruits. Bowel sounds are normal in a ll 4 quadrants. The abdominal aortic pulsation is not palpable. EXTREMITIES: Left upper extremity ecchymoses and edema. Radial pulses 2+ bilaterally. Femo ral pulses are 2+ bilaterally without bruits. DP and PT pulses are 2+ bilaterally. SKIN: Warm and dry, capillary refill is normal, marked bilateral pretibial hyperpigmentati on with jrbm-hcfbc-asuo desquamation. NEUROLOGIC: Awake, alert and oriented x 3. No focal motor deficits. PSYCHIATRIC: Appropriate, affect appears normal DATA Recent Labs Lab 07/20/20 0553 07/19/20 1603 07/19/20 0423 07/19/20 04207/18/20 1737 NA 137 -- 142 -- 133* K 3.9 -- 3.8 -- 4.2 CL 102 -- 104 -- 97* CO2 29 -- 28 -- 33* BUN 28* -- 26* -- 28* CREA 2.08* -- 1.81* -- 1.95* EGFR 31* -- 36* -- 33* GLU 88 -- 80 -- 132* MG 2.3 -- 2.1 -- 1.9 CALCIUM 7.9* -- 6.6* -- 7.6* PHOS -- -- 2.4 -- 2.5 AST -- -- -- -- 140* ALT -- -- -- -- 41 ALKPHOS -- -- -- -- 37 ALBUMIN -- -- -- -- 3.2* BNP -- -- -- -- 772.50* CK 1,876* 2,359* -- 2,174* 2,937* CKMB -- -- -- 2.6 3.0 TSH -- 0.249* -- -- -- Recent Labs Lab 07/20/20 0553 07/19/20 1603 07/19/2042107/18/20 1737 TROPONIN -- -- 0.815* 1.265* CK 1,876* 2,359* 2,174* 2,937* CKMB -- -- 2.6 3.0 Recent Labs Lab 07/20/20 0553 07/19/20 1603 07/19/2042207/18/20 1737 WBC 9.63 -- 9.62 11.17* HGB 12.4* -- 12.2* 13.4 HCT 36.8* -- 37.1* 39.7 PLT 131* -- 120* 146* INR 2.7 2.6 -- 2.6 Echocardiogram (07/18/20 - [facility]): Mildly dilated left ventricular cavity. Left ventricular systolic function is severely reduced. The ejection fraction is visually e stimated at 25-30%. There is severe hypokinesis of almost all segments, with akinesis of the basal inferior and basal inferolateral segments, near akinesis of the mid inferoseptal and apical septal segments, but fairly normal contractilit y of the basal anteroseptal segment. Grade I diastolic dysfunction with normal left atrial pressure. Normal right ventricular size and function. Mild mitral regurgitation. No prior study available for visual comparison. Echo (08/06/17): 1. The left ventricle cavity size is [...] valves. 5. There is no pericardial effusion. Lexiscan Cardiolite Stress test: (10/10/15): 1. Abnormal study. Mild distal inferior and apical ischemia. LVEF 53 % 2. Stress ECG: Negative for Lexiscan-induced ischemia. 3. No arrhythmias detected. 4. No Lexiscan induced chest pain. 5. No previous test for comparison. Cardiac catheterization (10/31/15): The coronary system was right dominant. 1. Left main bifurcated into LAD and left circumflex. Left main was free of disease. 2. Left anterior descending artery had 70% proximal stenosis followed by widely patent sten t. The LAD then continued and one could see the vein graft to the LAD filling retrograde. The rest of the LAD was free of disease. The first ailyn gonal branch was small and arising from a previously implanted stent and had a 90% tubular s tenosis. The second diagonal branch was a moderate-sized vessel and had an 85% ostial lesion . 3. The ramus branch had a 40% stenosis. 4. Left circumflex coronary artery and the marginal branches were free of disease. Extensiv tylor collaterals were seen from left to right, feeding the PDA and DIANE branches separately. The PDA and DIANE branches bifurcation appeared to be to tally occluded. 5. Right coronary artery was totally occluded and had evidence of previously implanted sten t. The only conus branch could be seen by engagement. VEIN GRAFT ANGIOGRAPHY 1. Vein graft to the RCA was totally occluded. 2. Vein graft to the LAD was widely patent. LEFT VENTRICULOGRAM akinetic inferior basal segment with hypokinetic inferior wall. Ejection fraction of 45%. PROBLEM LIST Principal Problem: Shock Active Problems: CAD (coronary artery disease) Diabetes mellitus, type II - ORAL Control GERD (gastroesophageal reflux disease) Hypertension Atrial fibrillation Heart block Hyperlipidemia Infection of prosthetic right knee joint Ischemic cardiomyopathy Systolic heart failure Pacemaker Coronary artery disease involving coronary bypass graft without angina pectoris COVID-19 Cardiac pacemaker in situ - LeadformanceTRONIC ASSESSMENT & PLAN 1. Rhabdomyolysis, s/p fall vs syncope with prolonged down time. He does not remember what happened to him. Significant hypoglycemia was noted on initial evaluation by EMS. His pace maker interrogation 07/19/2020 showed no clinically significant arrhythmias corresponding to that time frame. 2. Hypotension / Shock, resolved, likely multifactorial. 3. Chronic kidney disease, stage III-IV. His current renal function is actually slightly i mproved compared to labs from 06/08/19, so this may be his baseline. A nephrology evaluation during this admission is warranted.There has been no improvement in his renal function sinc e admission. 4. Mild troponin elevation, likely myocardial injury / troponin "leak" from rhabdomyolysis and hypotension. He will require eventual ischemic evaluation, as noted below. 5. Nonsustained ventricular tachycardia on telemetry, pacemaker interrogation. He will nee d eventual cardiac catheterization and beta afua therapy as below, but beta afua was h eld due to hypotension. His BP will now tolerate it, and he will be started on Toprol XL 25 mg, with the dose to be tried titrated upwards as his BP allows. He was advised he is at r isk for life-threatening ventricular arrhythmia/cardiac arrest due to his reduced LV systoli c function, and should be considered for an upgrade to an AICD for primary prevention of adan den cardiac if he fails to respond to medical therapy. 6. SVT noted on pacemaker interrogation, approximately 5 minutes in duration. He will need to re-establish care with EP, this is not an acute issue right now but continue telemetry. 7. Sinus tachycardia, mild, likely compensatory. TSH was low, see #19, below. 8. History of CAD with prior stenting followed by CABG x 2 with vein graft to LAD, vein gra ft to RCA His last cardiac catheterization October 2015 showed both the [place] RCA and its vein graft were occluded. There were [id number] collaterals to the RPDA and RPLA (occlusi on at their bifurcation). The vein graft to the LAD was patent at that time, and there were no significant lesions in the left circumflex system. As he now has worsening LV systolic fu nction, he will ultimately require angiogram to help assess for an underlying ischemic cause of this problem, but need to defer at this time due to other acute issues, specifically his severely compromised renal function. He is on aspirin 81 mg, atorvastatin and Toprol-XL is to be started. He appears to have significant infarct based on wall motion abnormalities on echocardiogram and high RV pacing threshold is likely due to RV scarring from his inferior RI. Wall motion abnormalities in the RCA territory have been documented previously. 9. Ischemic cardiomyopathy, LVEF was 40-45% by his echocardiogram 2017, and is now down to 25-30%. His BNP is elevated, but he has no other signs or symptoms of congestive heart fail ure, and would be classified as having chronic systolic heart failure, class C, NYHA class I .. He is not having anginal symptoms, therefore there is no indication for urgent cardiac ca theterization. This will need to be deferred until there is some improvement of his renal f unction. GDMT is currently complicated by ALVINO and recent shock just off pressors since yeste rday. Once his blood pressure proves to be stable and able to tolerate heart failure beta bl toddker will initiate therapy. Once his renal function recovers can consider ACEi/ARB vs Entre sto. He does not appear volume overloaded at this time. 10. Sick sinus syndrome s/p dual chamber Medtronic pacemaker 09/2016, interrogated 0, with chronically elevated RV capture threshold 6V @ 1.2 ms indicating extensive scarring of the myocardium likely from prior myocardial infarction. Otherwise normal device function. Additionally noted was a 1 second run of nonsustained VT on 07/15/20 and SVT x 5 minutes on 07/17/20 with average ventricular rate 158 bpm. 11. History of essential Hypertension. 12. Hyperlipidemia. He was on niacin prior to admission, atorvastatin started, lipid panel pending. 13. Type II diabetes mellitus - Hypoglycemic on EMS arrival. 14. Prior DVT on warfarin, INR therapeutic 15. Peripheral neuropathy 16. Chronic joint infection on antibiotics - He does not seem to know what joint is involve d. 17. Recent COVID19 diagnosis with reported pneumonia on 07/11/20 outpatient clinic progress note 18. ? Hyperthyroidism, TSH 0.249 on 07/19/20, will check free T4 Code Status: Full Code Kane Araujo RN - 4:06 AM PDTPatient slept well throughout shift. Encouraged shifting weight in bed, patient verbalized understanding. Vital signs remain stable. No acute events during hourly rounding. Kane De Los Santos RN Jakob Venegas RN - 07/19/2020 7:38 PM PDTPt arrived to the floor at 1900. Report received over the phone pawan lopez BLOG WRITER. Report given to FLY Middleton who will resume care. JAKOB LYNNE RN Jakob Mazariegos P harmD - 07/19/2020 5:41 PM PDT Pharmacy Warfarin Monitoring: Duane Mas male 80 y.o. 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) PATIENT DIET: carb consistent Bleed risk: moderate, recent fall [employer] regimen: 2.5 mg daily - confirmed with patient , Beth, via pill bottle identificat ion and also confirmed [facility] and records from MD office [facility] Labs Lab 07/19/20 1603 07/19/20 0423 07/18/20 1737 HGB -- 12.2* 13.4 PLT -- 120* 146* INR 2.6 -- 2.6 DATE 07/19 07/18 INR 2.6 2.6, 2.6 Warfarin Dose 2.5 mg planned Unknown, dose held Assessment: The INR is Within the target range of 2-3 Patient likely did not receive dose on 07/18 per review of records prior to patient transfer . Will continue with [employer] dose of 2.5 mg tonight since INR is in range, will be cautious and w atch for potential increase in INR with acute illness Plan: Warfarin 2.5 mg po today INR in am Pharmacy will continue to follow and modify therapy as indicated. Jakob Baum RPH 5:33 PM PDT 07/19/20 roctor, Amparo Faustin RPH - 07/19/2020 3:15 PM PDT Pharmacy Warfarin Monitoring: Duane Mas male 80 y.o. admitted on 07/18 for cardiogenic shock, possible septic shock (transfer from [facility]) INDICATION: DVT OTHER ANTICOAGULATION: none identified DRUG INTERACTIONS: no significant DDI PATIENT DIET: carb consistent Bleed risk: moderate, recent fall [employer] regimen: 2.5 mg daily - confirmed with patient , Beth, via pill bottle identificat ion and also confirmed [facility]), and records from MD office [facility] Labs Lab 07/19/20 0423 07/18/20 1737 HGB 12.2* 13.4 PLT 120* 146* INR -- 2.6 DATE 07/19 07/18 INR - 2.6, 2.6 Warfarin Dose 2.5 mg planned Unknown, dose held Assessment: The INR is Within the target range of 2-3 Patient likely did not receive dose on 07/18 per review of records prior to patient transfer . Will continue with [employer] dose of 2.5 mg tonight as long as INR is within range Plan: Warfarin 2.5 mg po today INR in am Pharmacy will continue to follow and modify therapy as indicated. Amparo Clark RPH 3:09 PM PDT 07/19/2020 asi Duque ARNP - 07/19/2020 9:20 AM PDTFormatting of this note might be different from the origin [facility] Service: Technical Professional Progress Note Duane Mas 80 y.o. Hospital Day: LOS: 1 day Post-Op Day: * No surgery found * Consulting Physicians Treatment Team: Manuel Rothman MD SUBJECTIVE Patient Summary: From Dr. Keith's H&P on 07/18: "The patient is a 80 y.o. male with sig nificant past medical history of DM2, CKD 4, CAD, 2V CABG 2000, SV to LAD and SV to PDA, SSS s/p medtronic dual chamber PPM/ICD, Ischemic cardiomyopathy, Severe sigmoid diverticulosis who presents to [facility] after an episode of fall. Patient was trying to go to bed on when he slid out of his chair and fell down. Apparently he was down on the floor for ar ound 9 hours since his was in another room she could not hear him. He was lying on the left side on his shoulder. He did not hit his head. Occasionally he went in and out but u renettale to tell me if he had a complete syncopal episode. This fall was likely mechanical and he felt dizzy before having this fall. He had no nausea vomiting patient was also tested p ositive for COVID in May 2020. He and his attended a at this time and his w mike did not feel good hence both got tested and both were positive for COVID-19. Eventually the patient was found in the morning after which he presented to the emergency room on 07/16 . He was initially found to be hypoglycemic with a blood sugar of 40 hence he received D50. initially when patient was admitted to the hospital CK was elevated to 1504. Hence patient also received fluid resuscitation for rhabdomyolysis and was kept on maintenance fluid at 1 25 cc/h. On 07/17, his CK worsened to 2936. His troponin was only 0.014. Also he continued to have soft blood pressures. Hence he was transferred to ICU in [facility]. On 07/18, he was also started on Levophed 2mcg for hypertension. Seems patient was also continued on torsemide 20 mg twice a day and metoprolol 5 mg IV every 6 hours. TTE done on 07/18/20 Mild dilated left ventricular cavity LV systolic function is severely reduced with EF of 25 to 30%. Severe hypokinesis of all segments. Akinesis of the basal inferior and basal infe rolateral segments near akinesis of the mid inferoseptal and apical segments. Grade 1 diast olic dysfunction with normal left atrial pressure. Normal RV size and function. Mild MR. I VC respiratory change in dimension greater than 50% and appears normal Other pertinent labs on 07/17, BNP 1740, INR 3.3, creatinine 1.89, hemoglobin 13.5, WBC 11.7 , ESR 78. On 07/18 INR was 2.6, Cr 2.02. Patient has also been on chronic antibiotic suppres zoe with history of joint infection by Keflex at home he was changed to IV azithromycin at the outside hospital for empiric treatment. 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 COVID positive. Given his significant cardiac history, TTE showing severe hypokinesis and EF of 25 to 30%, new pressor requirement, patient was transferred to [facility] for further management. On arrival to the ICU patient is awake alert and oriented x3. He is comfortably resting in bed. Systolic blood pressure 160 heart rate within 70. His main complaint was left should er pain. " ICU Timeline: 07/18- Admitted to ICU, on pressors. Started on zosyn for empiric coverage due to shock s moss. COVID-19 positive. On 2L NC. Events Overnight: T max 100.3, on room air, maintaining MAP >65 off pressors. SCHEDULED MEDICATIONS Reviewed. OBJECTIVE VITAL SIGNS Temp: [37.4 C (99.3 F)-39.2 C (102.6 F)] 37.4 C (99.3 F) Pulse: [89-113] 103 Resp: [19-31] 28 BP: (79-161)/(43-82) 141/66 Intake/Output Summary (Last 24 hours) at 07/19/2020 0920 Last data filed at 07/19/2020 0613 Gross per 24 hour Intake 555 ml Output 905 ml Net -350 ml EXAM GEN: awake, alert, oriented x3, NAD NEURO: PERRLA, EOMI, no facial asymmetry, moves all extremities well GCS: 15 HEENT: sclerae clear, nonicteric, oral mmm, pink, no exudates NECK: supple, trachea midline CV: RRR, S1/S2, no murmur, rub or gallop, peripheral pulses palpable, cap refill brisk LUNGS: clear b/l, no wheezing, rales or rhonchi, symmetric chest expansion, even/unlabored respirations on room air ABD: soft, nondistended, nontender to palpation, bowel tones present EXTR: no edema, clubbing or cyanosis. L shoulder swollen SKIN: warm, dry with chronic venous stasis changes in BLE LINES/TUBES: PIV Diagnostic Studies: Available labs and images have been reviewed and will be addressed as indicated in the assessment and plan. PROBLEM LIST Principal Problem: Shock Active Problems: CAD (coronary artery disease) Diabetes mellitus, type II - ORAL Control GERD (gastroesophageal reflux disease) Hypertension Atrial fibrillation Heart block Hyperlipidemia Infection of prosthetic right knee joint Ischemic cardiomyopathy Systolic heart failure Pacemaker Coronary artery disease involving coronary bypass graft without angina pectoris COVID-19 Cardiac pacemaker in situ - MEDTRONIC Resolved Problems: * No resolved hospital problems. * ASSESSMENT & PLAN NEURO: CAM ICU monitoring No focal deficits CV: Cardiogenic shock - differential includes AMI, decompensated heart failure, antihyperten sive medication induced. Now off pressors. Holding antihypertensives for now. MAP goal >65 History of systolic heart failure - Last EF 45% in 2015, in 2017 40%, hypokinetic inferi or wall. Repeat echocardiogram. Troponin peaked 1.265, trending down. Likely demand ischemia in setting of cardiogenic shock. CAD, 2V CABG 2000, SV to LAD and SV to PDA, Ischemic cardiomyopathy and SSS s/p medtronic dual chamber PPM/ICD History of DVT on warfarin 2.5 mg daily- trend INR Cardiology consulted PULM: Positive for COVID-19, was positive for COVID-19 in May 2020 No respiratory symptoms at this time GI/NUTRITION: Cardiac diet Bowel regimen RENAL/LYTES: CKD stage III with creatinine baseline around 1.9-2 Avoid nephrotoxic medications Monitor I's and O's Rhabdomyolysis with mild elevation in CK, no evidence of ALVINO CK trending down ID: Source of Infection: Sepsis of Unknown Etiology SIRS Criteria: Temp >38 C or < 36 C Acute Organ Dysfunction: Lactic Acidosis (Lactate > 2.0) Shock: Not Present Based on the above findings, the patient has evidence of: Sepsis (Infection + 2 SIRS) 07/18/2020 8:06 PM PDT Total SOFA Score: 3 On chronic Keflex 500 mg BID for history of knee infection followed by ID He was treated with azithromycin as an empiric treatment at outside hospital, chest x-ra y without any evidence of pneumonia Pro-Marycruz is trending down. Resume keflex and stop zosyn He is positive for COVID-19 without any major respiratory symptoms Lactate is 2.1 in the setting of CKD, no evidence of hemodynamic compromise Has ulcers in his mouth, will start Magic mouthwash. HSV and strep neg. Blood cultures x 2 pending 07/19/2020 9:42 AM PDT Total SOFA Score: 4 HEME: Mild leukocytosis no fever - trending down Chronically anticoagulated on warfarin 2.5 mg daily for history of DVTs. Follow INR Pharmacy consult for warfarin dosing ENDO: Diabetes mellitus type 2 on oral meds. Continue SSI. MUSC/SKIN: Patient had fall on the left shoulder, x-ray shows no evidence of fracture Pain and swelling on the left shoulder with restriction of movements will also check vas cular ultrasound to rule out DVT PROPHYLAXIS: Stress ulcer prophylaxis: Famotidine DVT prophylaxis: Coumadin with INR goal 2-3 VAP bundle: N/A Disposition: ICU as above. May be able to transfer out of ICU later today if remains stabl e. Code Status: Full Code *Please bill 45 minutes of critical care time spent evaluating the patient, reviewing the d deisy and formulating a plan exclusive of all other procedures. PADDY Redmond 07/19/2020 Dictation software, Impul[employer], was used which may contain error with similar sound words even after review. Portions of this chart may have been copied from previous notes for continuity of care. Catherine ctronically signed by PADDY Redmond at 07/19/2020 11:19 AM Manuel Man MD - 07/19/2020 8:40 AM PDTPatient was seen by myself only once in 2017. Unsure if he received any cardiology follow up or care else where. Has not been following up with EP, neither with pacemaker checks for more than a year now. Kali Tellez R - 07/19/2020 2:24 AM PDT Pharmacy Warfarin Monitoring: Duane Mas male 80 y.o. Pharmacy consulted to dose warfarin per: Dr Sagar Calderón INDICATION: DVT OTHER ANTICOAGULATION: not that I can find, warfarin is a home medication DRUG INTERACTIONS: patient started on Zosyn 07/18 PATIENT DIET: consistent carb Recent Labs Lab 07/18/20 1737 HGB 13.4 PLT 146* INR 2.6 DATE 07/18 INR 2.6 Warfarin Dose Unknown if received Assessment: The INR is Within the target range of 2-3 I am not giving a dose tonight. He was transferred from [facility] and likely received a dose. I cannot find history so day shift will need to investigate to see if they can get a better idea of home regimen. Plan: Daily INR with AM labs ordered. ICU pharmacist to follow up and get more information regarding home regimen. Pharmacy will continue to follow and modify therapy as indication. KALI NOWAK RPH 2:18 AM PDT 07/19/2020 documented in this encounter H&P Notes Corinne Calderón MD - 07/18/2020 3:58 PM PDTFormatting of this note might be d ifferent from the original. [facility] Service: Technical Professional Admission History & Physical Duane Mas 80 y.o. Date of Admission: 07/18/2020 Indication for ICU Admission: Cardiogenic shock and Septic shock History Obtained From: patient, chart review CHIEF COMPLAINT: fall HISTORY OF PRESENT ILLNESS The patient is a 80 y.o. male with significant past medical history of DM2, CKD 4, CAD, 2V CABG 2000, SV to LAD and SV to PDA, SSS s/p medtronic dual chamber PPM/ICD, Ischemic cardiom yopathy, Severe sigmoid diverticulosis who presents to [facility] after an episode of fall. Patient was trying to go to bed on 07/15 when he slid out of his chair and fell down. Kymberly arently he was down on the floor for around 9 hours since his was in another room she c ould not hear him. He was lying on the left side on his shoulder. He did not hit his head. Occasionally he went in and out but unable to tell me if he had a complete syncopal episod e. This fall was likely mechanical and he felt dizzy before having this fall. He had no na usea vomiting patient was also tested positive for COVID in May 2020. He and his at tended a at this time and his did not feel good hence both got tested and both were positive for COVID-19. Eventually the patient was found in the morning after which he presented to the emergency room on 07/16. He was initially found to be hypoglycemic with a b lood sugar of 40 hence he received D50. initially when patient was admitted to the hospital CK was elevated to 1504. Hence patient also received fluid resuscitation for rhabdomyolysis and was kept on maintenance fluid at 1 25 cc/h. On 07/17, his CK worsened to 2936. His troponin was only 0.014. Also he continued to have soft blood pressures. Hence he was transferred to ICU in [facility]. On 07/18, he was also started on Levophed 2mcg for hypertension. Seems patient was also continued on torsemide 20 mg twice a day and metoprolol 5 mg IV every 6 hours. TTE done on 07/18/20 Mild dilated left ventricular cavity LV systolic function is severely reduced with EF of 25 to 30%. Severe hypokinesis of all segments. Akinesis of the basal inferior and basal infe rolateral segments near akinesis of the mid inferoseptal and apical segments. Grade 1 diast olic dysfunction with normal left atrial pressure. Normal RV size and function. Mild MR. I VC respiratory change in dimension greater than 50% and appears normal Other pertinent labs on 07/17, BNP 1740, INR 3.3, creatinine 1.89, hemoglobin 13.5, WBC 11.7 , ESR 78. On 07/18 INR was 2.6, Cr 2.02. Patient has also been on chronic antibiotic suppres zoe with history of joint infection by Keflex at home he was changed to IV azithromycin at the outside hospital for empiric treatment. 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 COVID positive. Given his significant cardiac history, TTE showing severe hypokinesis and EF of 25 to 30%, new pressor requirement, patient was transferred to [facility] for further management. On arrival to the ICU patient is awake alert and oriented x3. He is comfortably resting in bed. Systolic blood pressure 160 heart rate within 70. His main complaint was left should er pain. Last Cath, 10/31/2015: left main OK, 70% prox-LAD, 90% ostial l D1, 85% ostial D2, 40% ramus, LCx/OM's OK, prox-RCA occ (previous stent), extensive L->R collaterals. SVG to LAD patent , SVG to RCA occluded. LVEF 45%, infero-basal akinesis. Active comorbid conditions include: - dysrhythmias - CAD - CHF - heart block - hypertension - past RI - pacemaker - PVD - sleep apnea - diverticular disease - GERD - obesity; due to excess calories; BMI (30-39) - arthritis REVIEW OF SYSTEMS At least 10 of the 14 systems are reviewed PAST MEDICAL HISTORY Past Medical History: Diagnosis Date DAIJA II Inhibitors - Daily Use 02/10/2019 Ankylosing spondylitis ([facility]) Arthritis Atrial fibrillation ([facility]) Beta Blockers - Daily Use 07/22/2017 Bradycardia CAD (coronary artery disease) Cardiac pacemaker in situ - MEDTRONIC 07/22/2017 Medtronic - Placed Sep 2016 for Symptomatic Bradycardia CHF (congestive heart failure) ([facility]) CHF (congestive heart failure) ([facility]) Chronic kidney disease Chronic renal insufficiency, stage 4 (severe) ([facility]) 02/10/2019 Chronic sinusitis Coronary artery disease Deep vein thrombosis (DVT) ([facility]) Diabetes mellitus type II Diabetes mellitus, type II - ORAL Control 07/22/2017 Diverticulosis Dysphagia GERD (gastroesophageal reflux disease) Hyperlipidemia Hypertension Hypertension, essential 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 STOP BANG Score 6 (High risk SEUN), does not want a sleep study, would not a ccept CPAP if prescribed. Other chronic pain Other specified forms of chronic ischemic heart disease Pacemaker; Medtronic Peripheral neuropathy Sleep apnea, obstructive 11/25/2016 Unspecified visual disturbance PAST SURGICAL HISTORY Past Surgical History: Procedure Laterality Date ABDOMEN SURGERY APPENDECTOMY CARDIAC CATHERIZATION COLONOSCOPY 2014 COLONOSCOPY CORONARY ANGIOPLASTY WITH STENT PLACEMENT CORONARY ARTERY BYPASS GRAFT CORONARY ARTERY BYPASS GRAFT EYE SURGERY KNEE SURGERY Right 09/07/2013 Procedure: KNEE - TOTAL; Surgeon: Drew Hurst MD; Location: [facility] OR; Service : Orthopedics; Laterality: Right; alisha component.br OTHER SURGICAL HISTORY CATARACT EXTRACTION OTHER SURGICAL HISTORY PHRENIC NERVE PACEMAKER IMPLANTATION PACEMAKER INSERTION Medtronic SINUS SURGERY TONSILLECTOMY AND ADENOIDECTOMY UPPER GASTROINTESTINAL ENDOSCOPY N/A 07/31/2017 Procedure: EGD with Dilation; Surgeon: Willow Colin MD; Location: [facility] UNIT UPPER GASTROINTESTINAL ENDOSCOPY N/A 02/10/2019 Procedure: EGD WITH DILITATION; Surgeon: Willow Colin MD; Location: [facility] UNIT VASECTOMY ALLERGIES Allergies Allergen Reactions Omeprazole Other (See Comments) Sulfa Antibiotics Rash and Hives MEDICATIONS PRIOR TO ADMISSION Prior to Admission medications Medication Sig Start Date End Date Taking? Authorizing Provider acetaminophen-codeine (TYLENOL #2) 300-15 MG per tablet Take 1 tablet by mouth every 4 hour s as needed for Pain. Historical Provider, acetaminophen-codeine (TYLENOL #3) 300-30 mg per tablet acetaminophen 300 mg-codeine 30 mg tablet Take 1 tablet every 6 hours by oral route. not on 06/16/18 Historical Provider, acetaminophen-codeine (TYLENOL #3) 300-30 mg per tablet acetaminophen/codeine #3 300-30 mgt abs Historical Provider, acetaminophen-codeine (TYLENOL #3) 300-30 MG per tablet acetaminophen/codeine 300-30 mg tab s Historical Provider, acetaminophen-codeine (TYLENOL #3) 300-30 MG per tablet 11/26/18 Historical Provider, acetaminophen-codeine (TYLENOL #3) 300-30 mg per tablet Take 1 tablet by mouth every 4 hour s as needed for Pain. Historical Provider, allopurinol (ZYLOPRIM) 300 mg tablet allopurinol 300 mg tabs Historical Provider, allopurinol (ZYLOPRIM) 300 mg tablet 09/08/18 Historical Provider, allopurinol (ZYLOPRIM) 300 mg tablet allopurinol 300 mg tablet Take 1 tablet every day by oral route. current Historical Provider, allopurinol (ZYLOPRIM) 300 mg tablet Take 300 mg by mouth Daily. Historical Provider, ALLOPURINOL PO Take by mouth. Historical Provider, amoxicillin (AMOXIL) 500 MG capsule amoxicillin 500 mg caps Historical Provider, amoxicillin (AMOXIL) 500 MG capsule 09/28/18 Historical Provider, amoxicillin-clavulanate (AUGMENTIN) 875-125 mg per tablet amoxicillin/clavulanate potassium 875-125 mg tabs not on Historical Provider, azithromycin (ZITHROMAX) 250 mg tablet azithromycin 250 mg tabs not on Historical Provider, carvedilol (COREG) 12.5 mg tablet carvedilol 12.5 mg tabs Historical Provider, carvedilol (COREG) 12.5 mg tablet TAKE ONE TABLET BY MOUTH TWICE DAILY 02/02/18 Historical Provider, carvedilol (COREG) 3.125 mg tablet carvedilol 3.125 mg tabs Historical ProviderMD carvedilol (COREG) 3.125 mg tablet carvedilol 3.125 mg tabs Historical ProviderMD carvedilol (COREG) 6.25 mg tablet Take 6.25 mg by mouth 2 times daily (with breakfast & din ner). Historical ProviderMD cephalexin (KEFLEX) 500 mg capsule cephalexin 500 mg caps Historical ProviderMD cephalexin (KEFLEX) 500 mg capsule 01/11/19 Historical ProviderMD cephalexin (KEFLEX) 500 mg capsule Take 1 capsule by mouth every eight hours. Indications: bone/joint infection 01/11/19 Historical ProviderMD cephalexin (KEFLEX) 500 mg capsule Take 500 mg by mouth 2 times daily. Historical Provid erMD cholecalciferol (CHOLECALCIFEROL) 1000 units TABS Take 1,000 Units by mouth once daily. Historical ProviderMD cholecalciferol (CHOLECALCIFEROL) 1000 units TABS Take 1,000 Units by mouth daily. Histo rical ProviderMD Cholecalciferol (VITAMIN D PO) Vitamin D Historical ProviderMD cholecalciferol (VITAMIN D-3) 1000 units TABS Take 1,000 Units by mouth Daily. Historica l ProviderMD ciprofloxacin (CIPRO) 250 mg tablet ciprofloxacin hcl 250 mg tabs Historical ProviderLeanne ciprofloxacin (CIPRO) 250 mg tablet 07/20/18 Historical ProviderMD clotrimazole (LOTRIMIN) 1% cream clotrimazole 1 % topical cream APPLY TO THE AFFECTED AND SURROUNDING AREAS OF SKIN BY TOPICAL ROUTE 2 TIMES PER DAY IN MORNING AND EVENING not on Historical ProviderMD colchicine (COLCRYS) 0.6 mg tablet Colcrys 0.6 mg tablet Take 1 tablet every day by oral route. prn Historical ProviderMD DOCOSAHEXAENOIC ACID PO Take 1 capsule by mouth once daily. Historical Provider, docusate-senna (SENOKOT-S) 50-8.6 mg per tablet Take 1 tablet by mouth two times daily. 05/28 11/13 Historical ProviderMD Doxycycline Monohydrate 150 MG CAPS Take 100 mg by mouth 2 (two) times daily. Historical ProviderMD eplerenone (INSPRA) 25 mg tablet Take 12.5 mg by mouth once daily. 05/21/17 Historical Pro viderMD fish oil 1,000 mg capsule Take 1,200 mg by mouth 2 times daily. Historical Provider, fluticasone-salmeterol (ADVAIR DISKUS) 250-50 mcg/puff diskus inhaler advair diskus 250-50 mcg/dose aepb Historical Provider, fluticasone-salmeterol (ADVAIR, WIXELA INHUB) 250-50 mcg/puff diskus inhaler Inhale into t he lungs. Historical Provider, fluticasone-salmeterol (ADVAIR, WIXELA INHUB) 250-50 mcg/puff diskus inhaler Inhale 1 puff into the lungs 2 (two) times daily. Historical Provider, folic acid (FOLVITE) 400 MCG tablet Take 400 mcg by mouth Daily. Historical Provider, folic acid 1 mg tablet folic acid 1 mg tablet Take 1 tablet every day by oral route. current Historical Provider, furosemide (LASIX) 20 mg tablet furosemide 20 mg tabs Historical Provider, furosemide (LASIX) 20 mg tablet furosemide 20 mg tabs Historical Provider, furosemide (LASIX) 40 mg tablet Take 40 mg by mouth 2 times daily. Historical Provider, glimepiride (AMARYL) 4 mg tablet glimepiride 4 mg tabs Historical Provider, glimepiride (AMARYL) 4 mg tablet glimepiride 4 mg tablet Take 1 tablet every day by oral route. current Historical Provider, glimepiride (AMARYL) 4 mg tablet Take 4 mg by mouth every morning (before breakfast). Hi carinical ProviderMD glipiZIDE (GLUCOTROL) 10 MG tablet glipizide 10 mg tabs Historical Provider, glipiZIDE (GLUCOTROL) 10 MG tablet 01/16/19 Historical Provider, glipiZIDE (GLUCOTROL) 10 MG tablet Take 10 mg by mouth 2 (two) times daily before meals. Historical Provider, glipiZIDE (GLUCOTROL) 5 mg tablet glipizide 5 mg tabs Historical Provider, glipiZIDE (GLUCOTROL) 5 mg tablet 08/05/18 Historical Provider, glyBURIDE (DIABETA) 2.5 mg tablet glyburide 2.5 mg tabs Historical ProviderMD isosorbide mononitrate (IMDUR) 30 mg ER tablet isosorbide mononitrate er 30 mg tb24 Hist orical ProviderMD isosorbide mononitrate (IMDUR) 30 mg ER tablet isosorbide mononitrate ER 30 mg tablet,exten ded release 24 hr Take 1 tablet every day by oral route. Historical ProviderMD isosorbide mononitrate (IMDUR) 60 mg ER tablet Take 60 mg by mouth Daily. Historical Pro MD davida isosorbide mononitrate 60 mg ER tablet isosorbide mononitrate er 60 mg tb24 Historical Nika estevez MD isosorbide mononitrate 60 mg ER tablet 07/25/18 Historical ProviderMD isosorbide mononitrate 60 mg ER tablet Take 1 tablet by mouth daily. 02/03/18 Historical Nika estevez MD losartan (COZAAR) 50 mg tablet losartan potassium 50 mg tabs Historical ProviderMD losartan (COZAAR) 50 mg tablet 09/08/18 Historical ProviderMD losartan (COZAAR) 50 mg tablet losartan potassium 50 mg tabs Historical ProviderMD losartan (COZAAR) 50 mg tablet Take 50 mg by mouth Daily. Historical Provider, LUTEIN-ZEAXANTHIN PO Take by mouth. Historical Provider, magnesium oxide (MAG-OX) 400 mg tablet Take 400 mg by mouth Daily. Historical Provider, MEDROL 2 MG tablet 01/28/19 Historical ProviderMD metFORMIN (GLUCOPHAGE) 500 mg tablet Take 500 mg by mouth 2 (two) times daily with meals. Historical ProviderMD metFORMIN (GLUCOPHAGE) 500 mg tablet Take 500 mg by mouth Daily. Historical ProviderMD metFORMIN (GLUCOPHAGE-XR) 500 mg 24 hr tablet metformin hcl er 500 mg tb24 Historical Pr MD arcadio metFORMIN (GLUCOPHAGE-XR) 500 mg 24 hr tablet metformin hydrochloride er 500 mg tb24 His torical Provider, metFORMIN (GLUMETZA) 500 MG 24 hr tablet metformin ER 500 mg 24 hr tablet,extended release Take 1 tablet every day by oral route. Historical ProviderMD methotrexate 2.5 mg tablet methotrexate 2.5 mg tabs Historical ProviderMD methotrexate 2.5 mg tablet 12/01/18 Historical ProviderMD methylPREDNISolone (MEDROL) 2 MG tablet Take 1 mg by mouth daily. 01/28/19 Historical Alexander strange MD methylPREDNISolone (MEDROL) 4 mg tablet methylprednisolone 4 mg tabs Historical Provider , methylPREDNISolone (MEDROL) 4 mg tablet 01/11/19 Laurel ProviderMD metOLazone (ZAROXOLYN) 2.5 mg tablet Take 2.5 mg by mouth Daily. Laurel ProviderMD metOLazone 2.5 mg tablet metolazone 2.5 mg tabs Laurel Marcus MD metOLazone 2.5 mg tablet metolazone 2.5 mg tablet Take 1 tablet every day by oral route. Laurel ProviderMD metoprolol succinate (KAPSPARGO SPRINKLE) 25 mg ER capsule Take 25 mg by mouth daily. Aditya Marcus MD metoprolol succinate (TOPROL-XL) 25 mg 24 hr tablet metoprolol succinate er 25 mg tb24 H summer ProviderMD metoprolol succinate (TOPROL-XL) 25 mg 24 hr tablet 01/31/19 Laurel ProviderMD Multiple Vitamins-Minerals (ADULT MULTIVITAMIN WITH MINERALS/IRON) TABS Take 1 tablet by mo uth Daily. Historical ProviderMD Multiple Vitamins-Minerals (EYE VITAMINS) CAPS Take 1 tablet by mouth. Laurel Provid MD willy Multiple Vitamins-Minerals (ICAPS AREDS 2 PO) ICaps AREDS Historical ProviderMD Multiple Vitamins-Minerals (MULTIVITAMIN PO) Take by mouth. Historical ProviderMD niacin 500 mg tablet Take by mouth. Historical ProviderMD niacinamide 500 MG tablet Take 500 mg by mouth 2 (two) times daily with meals. Luana Marcus MD nystatin (MYCOSTATIN) 100,000 units/mL suspension nystatin 210693 unit/ml susp Luana Marcus MD nystatin (MYCOSTATIN) 100,000 units/mL suspension 09/29/18 Laurel Marcus MD nystatin-triamcinolone (MYCOLOG II) cream nystatin-triamcinolone 100,000 unit/g-0.1 % topic al cream APPLY TO THE AFFECTED AREA(S) BY TOPICAL ROUTE 2 TIMES PER DAY IN THEMORNING AND EVENING prn Laurel Marcus MD nystatin-triamcinolone (MYCOLOG II) ointment Apply topically 2 (two) times daily as needed . Laurel Marcus MD nystatin-triamcinolone (MYCOLOG II) ointment Apply topically Twice daily as needed. Aditya Marcus MD [place]-3 Fatty Acids (FISH OIL PO) Take by mouth two times daily. Historical ProviderMD [place]-3 Fatty Acids (FISH OIL) 1200 MG CAPS Take 1,200 mg by mouth 2 (two) times daily. Historical Provider, [place]-3 Fatty Acids (OMEGA 3 PO) [place] 3 Historical ProviderMD omeprazole (PRILOSEC) 20 mg capsule omeprazole 20 mg cpdr Historical ProviderMD omeprazole (PRILOSEC) 20 mg capsule 02/10/19 Historical ProviderMD potassium chloride (K-DUR) 20 mEq ER tablet Take 20 mEq by mouth 2 times daily. Historic al Provider, potassium chloride (KLOR-CON) 10 mEq CR tablet potassium chloride er 10 meq tbcr Histori marycruz Provider, potassium chloride (KLOR-CON) 10 mEq CR tablet 07/03/18 Historical Provider, potassium chloride (KLOR-CON) 10 MEQ ER tablet potassium chloride cr 10 meq tbcr Histori marycruz Provider, potassium chloride (KLOR-CON) 10 MEQ ER tablet 01/12/19 Historical Provider, potassium chloride (KLOR-CON) 10 MEQ ER tablet Take 10 mEq by mouth daily. Pt is taking 3 t ablets daily. 11/19/18 Historical ProviderMD potassium chloride (MICRO-K) 10 mEq CR capsule potassium chloride ER 10 mEq capsule,extende d release Take 3 capsules every day by oral route. Historical Provider, potassium chloride 20 mEq CR tablet potassium chloride er 20 meq tbcr Historical Provide rMD potassium chloride 20 mEq CR tablet 07/23/18 Historical Provider, promethazine-codeine (PHENERGAN WITH CODEINE) 6.25-10 mg/5 mL liquid 11/26/18 Historical ProviderMD simvastatin (ZOCOR) 40 mg tablet simvastatin 40 mg tabs Historical Provider, simvastatin (ZOCOR) 40 mg tablet simvastatin 40 mg tablet Take 1 tablet every day by oral route. Historical Provider, simvastatin (ZOCOR) 40 mg tablet Take 40 mg by mouth nightly. Historical Provider, torsemide (DEMADEX) 20 mg tablet torsemide 20 mg tabs Historical ProviderMD torsemide (DEMADEX) 20 mg tablet 12/19/18 Historical Provider, torsemide (DEMADEX) 20 mg tablet Take 1 tablet by mouth daily. 11/19/18 Historical Provide rMD triamcinolone (KENALOG) 0.1% cream Apply to affected area three times daily. Apply thin savanah m to affected areas. Historical Provider, UNABLE TO FIND cefazolin sodium 1 gm solr Historical Provider, UNABLE TO FIND 07/09/18 Historical ProviderMD UNABLE TO FIND cefazolin sodium 10 gm solr Historical Provider, UNABLE TO FIND 07/16/18 Historical ProviderMD warfarin (COUMADIN) 2.5 mg tablet warfarin sodium 2.5 mg tabs Historical ProviderMD warfarin (COUMADIN) 2.5 mg tablet 01/31/19 Historical ProviderMD warfarin (COUMADIN) 2.5 mg tablet Coumadin 2.5 mg tablet Take 1 tablet every day by oral route. 4d at 2.5 and 5mg for 3 days M, F, Sun Historical ProviderMD warfarin (COUMADIN) 2.5 mg tablet Take 2.5 mg by mouth Daily. Historical Provider, FAMILY HISTORY OF SIGNIFICANCE Family History Problem Relation Age of Onset Heart disease Mother SOCIAL HISTORY Social History Socioeconomic History Marital status: Spouse name: Not on file Number of children: Not on file Years of education: Not on file Highest education level: Not on file Occupational History Not on file Social Needs Financial resource strain: Not on file Food insecurity Worry: Not on file Inability: Not on file Transportation needs Medical: Not on file Non-medical: Not on file Tobacco Use Smoking status: Former Smoker Types: Pipe Quit date: 10/27/1996 Years since quittin.7 Smokeless tobacco: Never Used Substance and Sexual Activity Alcohol use: No Comment: Alcoholic Drinks/day: rarely Drug use: No Comment: Drug use: No Sexual activity: Not on file Lifestyle Physical activity Days per week: Not on file Minutes per session: Not on file Stress: Not on file Relationships Social connections Talks on phone: Not on file Gets together: Not on file Attends protestant service: Not on file Active member of club or organization: Not on file Attends meetings of clubs or organizations: Not on file Relationship status: Not on file Intimate partner violence Fear of current or ex partner: Not on file Emotionally abused: Not on file Physically abused: Not on file Forced sexual activity: Not on file Other Topics Concern Not on file Social History Narrative Not on file PHYSICAL EXAM VITAL SIGNS EXAM GEN: awake, alert, oriented x3, NAD NEURO: PERRLA, EOMI, no facial asymmetry, moves all extremities well GCS: 15 HEENT: sclerae clear, nonicteric, oral mmm, pink, no exudates NECK: supple, trachea midline CV: RRR, S1/S2, no murmur, rub or gallop, peripheral pulses palpable, cap refill brisk LUNGS: clear b/l, no wheezing, rales or rhonchi, symmetric chest expansion, even/unlabored respirations ABD: soft, nondistended, nontender to palpation, no masses, no hepatosplenomegaly EXTR: no edema, clubbing or cyanosis, left shoulder appears ecchymotic and swollen SKIN: warm, dry. Chronic venous stasis changes in ankles and lower extremities LINES/TUBES: PIVs, Diane catheter (from OSH) Diagnostic Studies: Available labs and images have been reviewed and will be addressed as indicated in the assessment and plan. PROBLEM LIST Active Problems: * No active hospital problems. * Resolved Problems: * No resolved hospital problems. * ASSESSMENT & PLAN NEURO: CAM ICU monitoring No focal deficits CV: Map goal greater than 65 Currently not on pressors, acceptable MAPs Last EF 45% in 2015, in 2017 40%, hypokinetic inferior wall. CAD, 2V CABG 2000, SV to LAD and SV to PDA, SSS s/p medtronic dual chamber PPM/ICD, Isch emic cardiomyopathy Holding anti HTN meds for now given concern for shock Shock most likely related to antihypertensive medications Metoprolol succinate 25mg on hold Torsemide 20mg on hold Patient has been on warfarin 2.5 mg for history of DVT, currently INR is 2.6 Mild elevation in troponin will continue to trend Cardiology consult in the a.m. At home he is on Zocor 40 mg daily will continue Lipitor 20 mg daily PULM: Positive for COVID-19, was positive for COVID-19 in May 2020 No respiratory symptoms at this time We will continue to monitor GI/NUTRITION: Cardiac diet Bowel regimen RENAL/LYTES: CKD stage III with creatinine baseline around 1.9-2 Avoid nephrotoxic medications Monitor I's and O's Rhabdomyolysis with mild elevation in CK, no evidence of ALVINO will check CK level ID: Source of Infection: Sepsis of Unknown Etiology SIRS Criteria: Temp >38 C or < 36 C Acute Organ Dysfunction: Lactic Acidosis (Lactate > 2.0) Shock: Not Present Based on the above findings, the patient has evidence of: Sepsis (Infection + 2 SIRS) 07/18/2020 8:06 PM PDT Total SOFA Score: 3 Patient has been on chronic Keflex for history of knee infection unclear if he is taking currently will verify with pharmacy tomorrow He was treated with azithromycin as an empiric treatment at outside hospital, chest x-ra y without any evidence of pneumonia Pro-Marycruz is elevated, patient also having fevers, will start Zosyn for empiric coverage He is positive for COVID-19 without any major respiratory symptoms Lactate is 2.1 in the setting of CKD, no evidence of hemodynamic compromise Has ulcers in his mouth, will start Magic mouthwash. HSV checked in the outside hospita l negative. We will also check for strep throat. We will check blood cultures 07/18/2020 7:50 PM PDT Total SOFA Score: 3 HEME: Mild leukocytosis no evidence of fever we will continue to monitor On warfarin 2.5 mg daily for history of DVTs currently will continue home INR is 2.6 Pharmacy consult for warfarin dosing ENDO: Has history of diabetes We will continue sliding scale insulin MUSC/SKIN: Patient had fall on the left shoulder, x-ray shows no evidence of fracture Pain and swelling on the left shoulder with restriction of movements will also check vas cular ultrasound to rule out DVT PROPHYLAXIS: Stress ulcer prophylaxis: Famotidine DVT prophylaxis: Coumadin with INR goal 2-3 VAP bundle: N/A Disposition: ICU care as above. Code Status: Full Code Primary Care Physician: Erin Forrester MD *Please bill 90 minutes of critical care time spent evaluating the patient, reviewing the d deisy and formulating a plan exclusive of all other procedures. Corinne Calderón MD 07/18/2020 documente d in this encounter Consult Notes Mellissa Hutchins PA - 07/19/2020 3:09 PM PDTAssociated Order(s): PROVIDER TO PROVID ER CONSULT [facility]: Cardiology Initial Consult Note Name of Home Theater Expert: Mellissa Moy. ROCAEL Hutchins/Dr. Sree Vickers Primary Marine Scientist: None current, last seen by Manuel Rothman 02/2017 (last seen by YE Gupta 12/2017) Reason for Consultation: Worsening cardiomyopathy Requesting Physician: Dr. Thyagarajan, Technical Professional History Obtained From: Patient (poor historian), Chart Review CHIEF COMPLAINT: Fall vs syncope HISTORY OF PRESENT ILLNESS: Duane Mas is a 80 y.o. male with prior history of coronary artery disease/RI with prior stenting/2 vessel CABG (remote - vein graft to LAD and RCA, RCA and vein graft to RCA occlu ded on 10/2015 cardiac cath), ischemic cardiomyopathy LVEF 40-45% with inferior/inferobasal h ypokinesis by 08/2017 echocardiogram, sick sinus syndrome s/p dual chamber Medtronic pacemak er 09/2016, hypertension, hyperlipidemia, type II diabetes mellitus, chronic kidney disease, prior DVT on warfarin, peripheral neuropathy, chronic joint infection on prophylactic antib iotics, and recent COVID19 diagnosis (with pneumonia per [facility] office no te 07/11/20). He presented to [facility] 07/16[facility]20 after fall vs syncope with down ti me of reportedly 9 hours, found to have rhabdomyolysis CK 1504, acute kidney injury creatini ne 1.98, hypoglycemia glum reported 40 (EMS). Initial troponin 0.014. He was also febrile, with oral lesions/erythematous posterior pharynx and COVID19+. He was ultimately transferred to ICU for persistent hypotension requiring IV pressors. Echocardiogram performed, demonstr ated drop in LV systolic function to 25-30% with wall motion abnormalities. [place] then [place] [facility] [place] Telemetry strips from [place] with frequent PVC s and nonsustained VT. Upon [place] [facility] [place] troponin 1.265 and CK 2937. Creatinine 1.95. BNP elevated 772 but no significant pulmonary edema or effusion on CXR. Mild thrombocytopenia, PLT 146. INR ther apeutic 2.6. No ECG for review. He is currently in the ICU, transitioned off IV pressors yes terday, SBP 100-140 mmHg today. He is tachycardic, heart rate ~ 100 bpm with appearance of s inus rhythm by telemetry with first degree AV block and RBBB. Cardiology is consulted for fu rther evaluation and management due to findings on outside echocardiogram. Troponin now tren ding down, 0.815. Review of telemetry demonstrates frequent ventricular ectopy, nonsustaine d ventricular tachycardia. The patient has been noncompliant with cardiology follow-up, he has not been seen in cardio logy clinic since February 2017. Was last seen in EP clinic December 2017, he was followed for know n elevated capture threshold on his RV pacemaker lead. His last remote pacemaker interrogat ion was March 2019. Multiple attempts to contact the patient to re-establish have been made by our office since. Patient denies current or recent chest pain/pressure. He denies shortness of breath, ortho pnea and lower extremity edema. Denies palpitations, lightheadedness. He reports he does n ot remember what happened, whether he fell or lost consciousness. He reports he just woke u p on the floor. He was not found by his for several hours. REVIEW OF SYSTEMS CONSTITUTIONAL: No recent significant weight change, + recent fever/COVID 19+. He notes we akness, fatigue. NEUROLOGIC: No history of CVA, TIA, migraines, seizures. ?Syncope for cause of events lead ing to admission. No current dizziness, lightheadedness. Chronic peripheral neuropathy. EYES: No amaurosis, diplopia, recent visual changes, or glaucoma ENT: + mild hearing loss, no epistaxis. + oral lesions (painful) ENDOCRINE: + history of diabetes, not on insulin prior to admission. No history of thyroid disorders or other endocrine problems. No excessive hunger, thirst. PULMONARY/SLEEP: No dyspnea, orthopnea, paroxysmal nocturnal dyspnea. No history of asthm a, emphysema. Sleep apnea is documented in history tab, patient denies. CARDIOVASCULAR: Denies chest pain, pressure or discomfort. + history of CAD, prior stenti ng and CABG x 2. + history of ischemic cardiomyopathy. No history of cardiac arrhythmias. No palpitations. No history of a heart murmur, rheumatic fever. + history of hypertension, h yperlipidemia. No edema, no claudication symptoms. No h/o an AAA. GASTROINTESTINAL: No recent abdominal pain, nausea, vomiting or diarrhea. Denies PUD, elvis na, hematochezia, hepatitis. RENAL/: + history of chronic kidney disease. No dysuria, hematuria, urinary urgency, he sitancy. HEMATOLOGY/ONCOLOGY: No h/o bleeding disorders. + history DVT, no PE. Denies easy bruisa bility or bleeding. MUSCULOSKELETAL: + arthralgias. CUTANEOUS: No rashes, pruritus, lesions. PSYCHIATRIC: No history of depression, anxiety or other psychiatric problems. PAST MEDICAL & SURGICAL HISTORY Past Medical History: Diagnosis Date Ankylosing spondylitis ([facility]) Arthritis Beta Blockers - Daily Use 07/22/2017 CAD (coronary artery disease) Cardiac pacemaker in situ - MEDTRONIC 10/24/2016 Medtronic - Placed Sep 2016 for sick sinus syndrome Chronic kidney disease Chronic renal insufficiency, stage 4 (severe) ([facility]) 02/10/2019 Chronic sinusitis Deep vein thrombosis (DVT) ([facility]) Diabetes mellitus type II Diverticulosis Dysphagia GERD (gastroesophageal reflux disease) Hyperlipidemia Hypertension Ischemic cardiomyopathy [facility] current use of anticoagulant - 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 STOP BANG Score 6 (High risk SEUN), does not want a sleep study, would not a ccept CPAP if prescribed. Peripheral neuropathy Sick sinus syndrome ([facility]) s/p pacemaker Systolic heart failure ([facility]) Unspecified visual disturbance Past Surgical History: Procedure Laterality Date ABDOMEN SURGERY APPENDECTOMY CARDIAC CATHERIZATION COLONOSCOPY 2014 COLONOSCOPY CORONARY ANGIOPLASTY WITH STENT PLACEMENT CORONARY ARTERY BYPASS GRAFT CORONARY ARTERY BYPASS GRAFT EYE SURGERY KNEE SURGERY Right 09/07/2013 Procedure: KNEE - TOTAL; Surgeon: Drew Hurst MD; Location: [facility]; Service : Orthopedics; Laterality: Right; alisha component.br OTHER SURGICAL HISTORY CATARACT EXTRACTION OTHER SURGICAL HISTORY PHRENIC NERVE PACEMAKER IMPLANTATION PACEMAKER INSERTION Medtronic SINUS SURGERY TONSILLECTOMY AND ADENOIDECTOMY UPPER GASTROINTESTINAL ENDOSCOPY N/A 07/31/2017 Procedure: EGD with Dilation; Surgeon: Willow Colin MD; Location: [facility] MEDICAL PROCEDUR E UNIT UPPER GASTROINTESTINAL ENDOSCOPY N/A 02/10/2019 Procedure: EGD WITH DILITATION; Surgeon: Willow Colin MD; Location: [facility] MEDICAL PROCED URE UNIT VASECTOMY MEDICATIONS Home Medications Medications Prior to Admission Medication Sig Dispense Refill acetaminophen-codeine (TYLENOL #3) 300-30 MG per tablet Take 1 tablet by mouth Twice d aily as needed for Pain . [] azithromycin (ZITHROMAX) 250 mg tablet Take 250 mg by mouth Daily 4 days only . cephalexin (KEFLEX) 500 mg capsule Take 500 mg by mouth 2 times daily. cholecalciferol (VITAMIN D-3) 50 mcg (2,000 units) tablet Take 50 mcg by mouth Daily. fish oil 1,000 mg capsule Take 1,000 mg by mouth Daily. folic acid (FOLVITE) 400 MCG tablet Take 400 mcg by mouth Daily. glipiZIDE (GLUCOTROL) 10 MG tablet Take 20 mg by mouth 2 times daily (before meals) . hydroxychloroquine (PLAQUENIL) 200 mg tablet Take 200 mg by mouth Daily. magnesium oxide (MAG-OX) 400 mg tablet Take 400 mg by mouth Daily. metoprolol succinate (TOPROL-XL) 25 mg 24 hr tablet Take 25 mg by mouth Daily. Multiple Vitamins-Minerals (EYE MULTIVITAMIN/LUTEIN) TABS Take 1 tablet by mouth Daily. niacin 500 mg tablet Take 500 mg by mouth 3 times daily (with meals) . SITagliptin (JANUVIA) 50 MG tablet Take 50 mg by mouth Daily. torsemide (DEMADEX) 20 mg tablet Take 20 mg by mouth 2 times daily May take 40 mg BID i f needed. warfarin (COUMADIN) 2.5 mg tablet Take 2.5 mg by mouth Daily . Inhospital Medications atorvaSTATin 20 mg Oral Nightly cholecalciferol 2,000 Units Oral Daily docusate sodium 100 mg Oral BID [START ON 07/20/2020] famotidine 20 mg Oral Q48H insulin lispro 0-6 Units Subcutaneous 4x Daily AC and HS nystatin 500,000 Units Swish & Swallow 4x Daily warfarin per pharmacy Other Pharmacy Consult dextrose 10% norepinephrine Stopped (07/18/20 1615) ALLERGIES Allergies Allergen Reactions Omeprazole Other (See Comments) Sulfa Antibiotics Rash and Hives FAMILY HISTORY Family History Problem Relation Age of Onset Heart disease Mother SOCIAL HISTORY Social History Socioeconomic History Marital status: Spouse name: Not on file Number of children: Not on file Years of education: Not on file Highest education level: Not on file Occupational History Not on file Social Needs Financial resource strain: Not on file Food insecurity Worry: Not on file Inability: Not on file Transportation needs Medical: Not on file Non-medical: Not on file Tobacco Use Smoking status: Former Smoker Types: Pipe Quit date: 10/27/1996 Years since quittin.7 Smokeless tobacco: Never Used Substance and Sexual Activity Alcohol use: No Comment: Alcoholic Drinks/day: rarely Drug use: No Comment: Drug use: No Sexual activity: Not on file Lifestyle Physical activity Days per week: Not on file Minutes per session: Not on file Stress: Not on file Relationships Social connections Talks on phone: Not on file Gets together: Not on file Attends protestant service: Not on file Active member of club or organization: Not on file Attends meetings of clubs or organizations: Not on file Relationship status: Not on file Intimate partner violence Fear of current or ex partner: Not on file Emotionally abused: Not on file Physically abused: Not on file Forced sexual activity: Not on file Other Topics Concern Not on file Social History Narrative Not on file PHYSICAL EXAM Vital Signs: BP 112/73 | Pulse 101 | Temp (!) 38.2 C (100.8 F) | Resp 23 | Ht 1.702 m (5' 7") | Wt 77 kg (169 lb 12.1 oz) | SpO2 92% | BMI 26.59 kg/m Intake/Output Summary (Last 24 hours) at 07/19/2020 1605 Last data filed at 07/19/2020 1200 Gross per 24 hour Intake 555 ml Output 1080 ml Net -525 ml Physical Exam Constitutional: He is oriented to person, place, and time. He appears well-developed and we ll-nourished. No distress. Patient appears ill, but not toxic HENT: Head: Normocephalic and atraumatic. Eyes: Conjunctivae are normal. No scleral icterus. Neck: Neck supple. No JVD present. Cardiovascular: Regular rhythm and normal heart sounds. Tachycardia present. Exam reveals n o gallop and no friction rub. No murmur heard. Pulses: Radial pulses are 2+ on the right side and 2+ on the left side. Femoral pulses are 2+ on the right side and 2+ on the left side. Dorsalis pedis pulses are 2+ on the right side and 2+ on the left side. Posterior tibial pulses are 2+ on the right side and 2+ on the left side. Pulmonary/Chest: Effort normal and breath sounds normal. No respiratory distress. He has no wheezes. He has no rales. Abdominal: Soft. Bowel sounds are normal. There is abdominal tenderness. Mild diffuse tenderness to palptation Musculoskeletal: General: No deformity or edema. Neurological: He is alert and oriented to person, place, and time. Skin: Skin is warm and dry. He is not diaphoretic. Hyperpigmentation distal bilateral lower extremities Psychiatric: He has a normal mood and affect. His behavior is normal. Nursing note and vitals reviewed. DATA Recent Labs Lab 07/19/2042207/19/2042107/18/201736 NA 142 -- 133* K 3.8 -- 4.2 CL 104 -- 97* CO2 28 -- 33* BUN 26* -- 28* CREA 1.81* -- 1.95* GLU 80 -- 132* MG 2.1 -- 1.9 CALCIUM 6.6* -- 7.6* PHOS 2.4 -- 2.5 AST -- -- 140* ALT -- -- 41 ALKPHOS -- -- 37 ALBUMIN -- -- 3.2* BNP -- -- 772.50* CK -- 2,174* 2,937* CKMB -- 2.6 3.0 Recent Labs Lab 07/19/2042107/18/201736 TROPONIN 0.815* 1.265* CK 2,174* 2,937* CKMB 2.6 3.0 Recent Labs Lab 07/19/2042207/18/201736 WBC 9.62 11.17* HGB 12.2* 13.4 HCT 37.1* 39.7 PLT 120* 146* INR -- 2.6 Recent Labs 07/18/201736 ALT 41 PTT 54* DIGLEVEL:3)@ ECGs reviewed: None available for review DEVICE INTERROGATION: Dual Chamber Medtronic Pacemaker AAIR <=> DDDR 60/130 Sensing, impedance, and capture threshold stable but RV capture threshold chronically eleva dilcia. Estimated battery longevity 5-7.5 years. 16.9% AP and 0.5% FINE ARTIST. 0 AT/AF burden. Episode of 1:1 atrial driven tachycardia 07/17/20 duration 5 min 11 seconds, average V rate 158 bpm. One NSVT episode 07/15/20, < 1 second. No programming changes. Echocardiogram: TTE 07/18/20 ([facility] - Reviewed today) Mildly dilated left ventricular cavity. Left ventricular systolic function is severely reduced. The ejection fraction is visually e stimated at 25-30%. There is severe hypokinesis of almost all segments, with akinesis of the basal inferior and basal inferolateral segments, near akinesis of the mid inferoseptal and apical septal segments, but fairly normal contractilit y of the basal anteroseptal segment. Grade I diastolic dysfunction with normal left atrial pressure. Normal right ventricular size and function. Mild mitral regurgitation. No prior study available for visual comparison. Prior TTE 08/06/17 (reviewed today): CONCLUSIONS 1. The left ventricle cavity size is [...] valves. 5. There is no pericardial effusion. Stress test: Pharmacologic stress with SPECT 10/10/15, reviewed today (prior to cardiac catheterization 10/31/15) IMPRESSION: 1. Abnormal study. Mild distal inferior and apical ischemia. LVEF 53 % 2. Stress ECG: Negative for Lexiscan-induced ischemia. 3. No arrhythmias detected. 4. No Lexiscan induced chest pain. 5. No previous test for comparison. Cardiac catheterization: [facility] 10/31/2015 (reviewed today) CORONARY ANGIOGRAPHY The coronary system was right dominant. 1. Left main bifurcated into LAD and left circumflex. Left main was free of disease. 2. Left anterior descending artery had 70% proximal stenosis followed by widely patent stent. The LAD then continued and one could see the vein graft to the LAD filling retrograde. The rest of the LAD was free of disease. The first diagonal branch was small and arising from a previously implanted stent and had a 90% tubular stenosis. The second diagonal branch was a moderate-sized vessel and had an 85% ostial lesion. 3. The ramus branch had a 40% stenosis. 4. Left circumflex coronary artery and the marginal branches were free of disease. Extensively collaterals were seen from left to right, feeding the PDA and DIANE branches separately. The PDA and DIANE branches bifurcation appeared to be totally occluded. 5. Right coronary artery was totally occluded and had evidence of previously implanted stent. The only conus branch could be seen by engagement. VEIN GRAFT ANGIOGRAPHY 1. Vein graft to the RCA was totally occluded. 2. Vein graft to the LAD was widely patent. LEFT VENTRICULOGRAM Left ventriculogram in BURGER view showed akinetic inferior basal segment with hypokinetic inferior wall. Ejection fraction of 45%. ASSESSMENT & PLAN 1. Rhabdomyolysis - S/P fall vs syncope with prolonged down time. 2. Shock, resolved - Suspect multifactorial. 3. Acute kidney injury - Secondary to rhabdomyolysis. He has underlying CKD. 4. Mild troponin elevation - Likely myocardial injury given rhabdomyolysis. He will require eventual ischemic evaluation as below. No ECG on review of [facility] records or here. Mina l obtain now. 5. Nonsustained ventricular tachycardia on telemetry, pacemaker interrogation - Will need e ventual cardiac catheterization and beta afua therapy as below. No evidence that his fall or possible syncope was related to ventricular arrhythmia based on interrogation of pacemak er. Patient was advised he is at risk for life-threatening ventricular dysrhythmia/cardiac a rrest due to his reduced LV systolic function. 6. SVT noted on pacemaker interrogation - Approximately 5 minute duration. Patient will nee d to re-establish care with EP, this is not an acute issue right now but continue telemetry. 7. Sinus tachycardia - Probably compensatory, but consider another etiology if it does not resolve with recovery of acute issues. Will check TSH. 8. History of coronary artery disease with prior stenting followed by CABG x 2 with vein gr aft to LAD, vein graft to RCA - Last cardiac catheterization October 2018 with RCA and vein graft to RCA occluded. There was left to right collaterals to the RPDA and RPLA (occlusion a t their bifurcation). Vein graft to the LAD was patent at that time, and there was no signif icant lesions in the left circumflex system. Patient now has worsening LVEF, will ultimately require angiogram but need to defer at this time due to other acute issues including ALVINO. S tart aspirin 81 mg. Agree with atorvastatin as below. Beta afua once blood pressure can t olerate. He appears to have significant infarct based on wall motion abnormalities on echoca rdiogram and RV pacing threshold. Wall motion abnormalities in RCA territory previously docu mented. 9. Ischemic cardiomyopathy, LVEF 40-45% by 08/2017 echocardiogram and now 25-30% - Could re present progression of his ischemic heart disease vs nonischemic etiology. He is not having anginal symptoms, no indication for urgent cardiac catheterization. Will need to defer cardi ac catheterization pending improvement of his renal function. GDMT is currently complicated by ALVINO and recent shock just off pressors since yesterday. Once his blood pressure proves to be stable and able to tolerate heart failure beta afua will initiate therapy. Once his r enal function recovers can consider ACEi/ARB vs Entresto. He does not appear volume overload ed at this time, laying supine comfortably in bed. 10. Sick sinus syndrome s/p dual chamber Medtronic pacemaker 09/2016 - Pacemaker interrogat ed today, with chronically elevated RV capture threshold 6V @ 1.2 ms indicating extensive sc arring of the myocardium likely from prior myocardial infarction. Otherwise normal device fu nction. Additionally noted was NSVT x 1 second on 07/15/20 and SVT x 5 minutes on 07/17/20 wit h average ventricular rate 158 bpm. 11. Hypertension - Initially with shock requiring IV pressors, see above. 12. Hyperlipidemia - Appears that he was on niacin prior to admission. Agree with initiatio n of atorvastatin. Will check AM lipid panel. 13. Type II diabetes mellitus - Hypoglycemic on EMS arrival. 14. Chronic kidney disease - With ALVINO as above. 15. Prior DVT on warfarin, INR therapeutic 16. Peripheral neuropathy 17. Chronic joint infection on antibiotics - He does not seem to know what joint is involve d. 18. Recent COVID19 diagnosis with reported pneumonia on 07/11/20 outpatient clinic progress note The patient was seen and all labs, imaging and ECGs were reviewed. Case was discussed and r ecommendations were developed in conjunction with Dr. Sree Vickers. Thank you for allowing me to participate in the care of this patient. Code Status: Full Code Primary Care Physician: Erin Forrester MD This encounter was dictated with voice recognition software and may contain inadvertent rec ognition errors. Mellissa Moy. ROCAEL Hutchins 07/19/2020 Associated attestation - Sebas Vickers MD - 07/19/2020 6:01 PM PDTI have personally int erviewed and examined Duane Mas on 07/19/20 at 17:10. I have personally reviewed the avail able pertinent laboratory and imaging results, pacemaker interrogation strips, and agree wit h what is stated in this note. Although his RV pacing threshold is quite high, 6 mV, I note it has always been high, 7.7 m V at the time of implantation, possibly from RV scarring from his former inferior RI as both the [place] RCA and its graft are occluded. However, he only paces in the ventricle 0.5% of the time, so this is not overly concerning. When his generator reaches PETER (in approximate ly 3 years), placement of a new RV lead should be considered. He is not a candidate for cardiac cath at present due to his renal dysfunction. He seemed quite unconcerned to hear that his heart function has decreased, and a history of noncompliance with follow up is well documented. Sebas Vickers MD documented in this encounter Miscellaneous Notes Plan of Care - Vero Arias RN - 07/25/2020 11:49 AM PDT Problem: Adult Inpatient Plan of Care Goal: Plan of Care Review 07/25/2020 1149 by Vero Arias RN Outcome: Met 07/25/2020 1035 by Vero Arias RN Outcome: Ongoing, progressing Goal: Patient-Specific Goal 07/25/2020 1149 by Vero Arias RN Outcome: Met 07/25/2020 1035 by Vero Arias RN Outcome: Ongoing, progressing Goal: Absence of Hospital-Acquired Illness or Injury 07/25/2020 1149 by Vero Arias RN Outcome: Met 07/25/2020 1035 by Vero Arias RN Outcome: Ongoing, progressing Goal: Optimal Comfort and Wellbeing 07/25/2020 1149 by Vero Arias RN Outcome: Met 07/25/2020 1035 by Vero Arias RN Outcome: Ongoing, progressing Intervention: Provide Person-Centered Care Flowsheets (Taken 07/25/2020 0812) Trust Relationship/Rapport: care explained choices provided emotional support provided empathic listening provided questions answered questions encouraged reassurance provided thoughts/feelings acknowledged Goal: Readiness for Transition of Care 07/25/2020 1149 by Vero Arias RN Outcome: Met 07/25/2020 1035 by Vero Arias RN Outcome: Ongoing, progressing Goal: Rounds/Family Conference 07/25/2020 1149 by Vero Arias RN Outcome: Met 07/25/2020 1035 by Vero Arias RN Outcome: Ongoing, progressing Problem: Fall Injury Risk Goal: Absence of Fall and Fall-Related Injury 07/25/2020 1149 by Vero Arias RN Outcome: Met 07/25/2020 1035 by Vero Arias RN Outcome: Ongoing, progressing Problem: Skin Injury Risk Increased Goal: Skin Health and Integrity 07/25/2020 1149 by Vero Arias RN Outcome: Met 07/25/2020 1035 by Vero Arias RN Outcome: Ongoing, progressing Problem: Hemodynamic Instability (Sepsis/Septic Shock) Goal: Effective Tissue Perfusion 07/25/2020 1149 by Vero Arias RN Outcome: Met 07/25/2020 1035 by Vero Arias RN Outcome: Ongoing, progressing Problem: Infection (Sepsis/Septic Shock) Goal: Absence of Infection Signs/Symptoms 07/25/2020 1149 by Vero Arias RN Outcome: Met 07/25/2020 1035 by Vero Arias RN Outcome: Ongoing, progressing Problem: Glycemic Control Impaired Goal: Blood Glucose Level Within Desired Range 07/25/2020 1149 by Vero Arias RN Outcome: Met 07/25/2020 1035 by Vero Arias RN Outcome: Ongoing, progressing Problem: COVID-19 Confirmed or Rule-Out Description: Resident requires specific care to avoid complications secondary to COVID-19 Goal: Resident will remain free of complications due to COVID-19 Description: 1. Review and update the resident's isolation status in the Isolation activity 2. Keep the resident's door closed at all times and limit movement of the resident outside of the room to medically essential purposes. If applicable, transfer resident to a single-[facility] room 3. Educate and reinforce infection prevention and control practices recommended by CDC 4. Frequently monitor for development of more severe symptoms 5. Use appropriate PPE when providing care for resident 6. Reinforce no visitor policy and non-essential health care personnel policy, except for c ertain compassionate care situations 7. If worsening of symptoms occur, alert the nearest Hospital caring for confirmed COVID-19 patients and arrange for transfer with proper precautions including placing a facemask on t he resident during transfer 8. Communicate information about known or suspected case of COVID-19 to appropraite public health personnel 9. Avoid procedures that are likely to induce coughing (e.g., sputum induction, open suctio heath of airways). If required, do so in a Airborne Infection Isolation Room. The health care provider in the room should wear an N95 or higher-level respirator, eye protection, gloves, and a gown. The number of HCP present during the procedure should be limited to only those essential for resident care and procedure support. Visitors should not be present for the pr ocedure. Clean and disinfect procedure room surfaces promptly 10. Update resident, family, and resident representatives as needed 07/25/2020 1149 by Vero Arias RN Outcome: Met 07/25/2020 1035 by Vero Arias RN Outcome: Ongoing, progressing Problem: Oral Intake Inadequate Goal: Improved Oral Intake Description: Pt will consume >50% meals/snacks/suppl 07/25/2020 1149 by Vero Arias RN Outcome: Met 07/25/2020 1035 by Vero Arias RN Outcome: Ongoing, progressing Problem: Infection Goal: Infection Symptom Resolution 07/25/2020 1149 by Vero Arias RN Outcome: Met 07/25/2020 1035 by Vero Arias RN Outcome: Ongoing, progressing lan of [facility] - Trice Osullivan RN - 07/25/2020 10:49 AM PDTPatient decline patient being enrolled in teleheal th monitoring. COVID specific discharge instructions have been discussed and all questions have been answe red. AVS reviewed with spouse and discharge teaching complete. Discharge medications reviewed an d all questions answered. Local drug take back flyer given to patient in discharge folder. V erified with patient that they have all belongings. Escorted off unit by: staff Transportation via private vehicle provided by: patient's spouse and son lan of Care - Vero Arias RN - 07/25/2020 10:36 AM PDT Problem: Adult Inpatient Plan of Care Goal: Plan of Care Review Outcome: Ongoing, progressing Goal: Patient-Specific Goal Outcome: Ongoing, progressing Goal: Absence of Hospital-Acquired Illness or Injury Outcome: Ongoing, progressing Goal: Optimal Comfort and Wellbeing Outcome: Ongoing, progressing Intervention: Provide Person-Centered Care Flowsheets (Taken 07/25/2020 0812) Trust Relationship/Rapport: care explained choices provided emotional support provided empathic listening provided questions answered questions encouraged reassurance provided thoughts/feelings acknowledged Goal: Readiness for Transition of Care Outcome: Ongoing, progressing Goal: Rounds/Family Conference Outcome: Ongoing, progressing Problem: Fall Injury Risk Goal: Absence of Fall and Fall-Related Injury Outcome: Ongoing, progressing Problem: Skin Injury Risk Increased Goal: Skin Health and Integrity Outcome: Ongoing, progressing Problem: Hemodynamic Instability (Sepsis/Septic Shock) Goal: Effective Tissue Perfusion Outcome: Ongoing, progressing Problem: Infection (Sepsis/Septic Shock) Goal: Absence of Infection Signs/Symptoms Outcome: Ongoing, progressing Problem: Glycemic Control Impaired Goal: Blood Glucose Level Within Desired Range Outcome: Ongoing, progressing Problem: COVID-19 Confirmed or Rule-Out Description: Resident requires specific care to avoid complications secondary to COVID-19 Goal: Resident will remain free of complications due to COVID-19 Description: 1. Review and update the resident's isolation status in the Isolation activity 2. Keep the resident's door closed at all times and limit movement of the resident outside of the room to medically essential purposes. If applicable, [facility] 3. Educate and reinforce infection prevention and control practices recommended by CDC 4. Frequently monitor for development of more severe symptoms 5. Use appropriate PPE when providing care for resident 6. Reinforce no visitor policy and non-essential health care personnel policy, except for c ertain compassionate care situations 7. If worsening of symptoms occur, alert the nearest Hospital caring for confirmed COVID-19 patients and arrange for transfer with proper precautions including placing a facemask on t he resident during transfer 8. Communicate information about known or suspected case of COVID-19 to appropraite public health personnel 9. Avoid procedures that are likely to induce coughing (e.g., sputum induction, open suctio heath of airways). If required, do so in a Airborne Infection Isolation Room. The health care provider in the room should wear an N95 or higher-level respirator, eye protection, gloves, and a gown. The number of HCP present during the procedure should be limited to only those essential for resident care and procedure support. Visitors should not be present for the pr ocedure. Clean and disinfect procedure room surfaces promptly 10. Update resident, family, and resident representatives as needed Outcome: Ongoing, progressing Problem: Oral Intake Inadequate Goal: Improved Oral Intake Description: Pt will consume >50% meals/snacks/suppl Outcome: Ongoing, progressing Problem: Infection Goal: Infection Symptom Resolution Outcome: Ongoing, progressing lan of Care - Joslyn Beatty MSW - 07/25/2020 9:23 AM PDT Care Management Final Discharge Plan Readmission Risk: HIGH Discharge Plan Planned Disposition: Home with Home Health Planned Destination: Private residence PCP: Gilberto Estrada MD Patient/Family Notified: yes Transportation Date/Time: 07/25/20 Community Support Services Current Outpt/Agency/Support Groups: none Community Agency Name: may need home health Equipment Durable Medical Equipment Provider: none Home Equipment at Discharge: none Equipment Used at Home: 4 wheeled walker (4WW) Pharmacy Pharmacy/Medication needs: other (see comments)(pending d/c meds) Notes: MECHANICAL MAINTENANCE SUPERVISOR spoke to pt who requested that CM contact pt's , Beth ([phone]). CM spoke to Beth who reports that pt does not need any DME at home and has all needed DME. Per , pt will be discharge on Coumadin. However, the Coumadin is not new and pt was on Co umadin prior to admission. Pt's confirmed that pt was on Coumadin prior to admission. Beth requested that pt receive home health services. MECHANICAL MAINTENANCE SUPERVISOR faxed referral to [facility]. Per [facility], they have therapy staff available but no nursing staff at this time. Beth reports that Erin Forrester is not pt's PCP any longer. Pt sees Gilberto Estrada MD at [facility]. CM called [facility] to verify that pt is cu rrent. Pt is current. [facility] [address] [place] [address] P: F: [facility] [address] [place] [address] The following added to AVS - Call [facility] Referral sent on 07/25. Please call to set up services for Physical Therapy and Nursing care . [facility] [facility] [address] [place] [address] Pt will discharge on Entresto. Per spouse, pt does have medication insurance. MD will send prescription to [facility] for the 30 day free trial. Pt will follow up with cardiology in 2 weeks. Spouse instructed to speak to animal care provider about medication cost concerns. After e 30 day trial, it will be $47. Electronically signed: ABBIE BYRD 07/25/2020 9:23 AM PDT lan of Comfort Arriaga RN - 07/25/2020 6:36 AM PDTVSS. Pt tolerating entresto throughout the night. No episodes of hypotension. Urinating without complications. No acute changes. Problem: Fall Injury Risk Goal: Absence of Fall and Fall-Related Injury Outcome: Ongoing, progressing Intervention: Promote Injury-Free Environment Note: Bed in low position, non-skid socks in place, call light in reach. lan Evgeny Cormier RN - 07/24/2020 5:30 PM PDTPt A&Ox4, VSS at this time. Pt started on Enres to. Pt had one episode of hypotension with SPBs in 70s 1 hour after taking medication. no tified. Diane cath removed. Otherwise no other acute changes. End of shift audit complete. Evgeny Yung RN lan of Care - Erin Gonzalez Leanne, OTR/L - 07/24/2020 2:10 PM PDTFormatting of this note might be d ifferent from the original. Occupational Therapy Initial Evaluation Note Recommended discharge disposition: home with assist Post discharge occupational therapy recommendation: other (see comment)(TBD) Equipment Recommendations: (TBD) Barriers to community-based discharge Cognitive Impairment, Physical Impairment, Level of assistance for ADLs/mobility, and Fall risk Planned Interventions: ADL retraining, bed mobility training, functional endurance training , strengthening, transfer training Frequency: 3 times/wk for 10 days with reassessment due by 08/03/20 Summary: Initial eval complete. Patient very sleepy and require constant verbal cues for q uestions. patient able to provide history. patient demonstrated ability to move but required moderate verbal to actively participate as he was fatigued. patient with difficulty reachin g his feet. Has a catheter. patient agreeable to participate in order to return home to his prior functioning level. Continue with OT in order for patient to achieve his goals. Living Environment Lives With: spouse Living Arrangements: house(2 story but stays on main level) Transportation Available: family or friend will provide Living Environment Comment: Resides with spouse in [place]. They have 2 adult sons who have be en assisting as both pt and his spouse had Covid-19 in May. 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 2 HÉCTOR. Walk in shower. ` Prior Functional Level Comment: Hx of falls. Mostly indep with mobility/ADLs at baseline.Lal s a walk in shower with shower chair and grab bars. Had 3 children. spouse cleaned and pt re ported assisted with cooking, has a walker and cane at home Precautions Precaution Comment: Skin integrity L shoulder/humerus, monitor heart rate, pt on thickened liquids Precautions/Limitations: aspiration, hard of hearing Cognitive Assessment Cognitive Comments: forgetful, tends to joke around Orientation: person, place Arousal Level: arouses to voice Impairments Found (describe specific impairments): aerobic capacity/endurance, functional e ndurance/activity tolerance, gait, locomotion, and balance Sensory Assessment Sensation Comments: no numbness reported in arms but reports numbness in feet from diabetes Vision Comments: wears reading glasses Lower Body Dressing Assessment/Training LB Dressing Assess/Train, Comment: socks LB Dressing, Level of Randall: maximal assist (25% patient effort) LB Dressing Assess/Train, Position: sitting LB Dressing Impairments: decreased flexibility, ROM decreased, strength decreased Bed Mobility Bed Mobility Comments: needed encouragement to participate Supine to Sit, Level of Randall: minimal assist (75% patient effort) Safety Issues: decreased use of legs for bridging/pushing, decreased use of arms for pushin g/pulling Impairments: strength decreased Transfers Transfers Comments: verbal cues Sit-Stand, Level of Randall: minimal assist (75% patient effort) Stand-Sit, Level of Randall: minimal assist (75% patient effort) [id number], Assistive Device: gait belt Safety Issues: sequencing ability decreased Impairments: strength decreased, impaired balance ROM Comments: Limited LUE mobility due to skin abrasions and moderate swelling Strength Comments: global deconditioning Balance Sitting Balance: Static: good balance Sitting Balance: Dynamic: good balance Standing Balance: Static: fair balance Exercises Exercise Comments: did not want to exercise today, no theraband exercises provided Goals Reflects last filed data and may be from multiple contributors. UB Dressing Goal Most Recent Value LTG Status new at 07/24/2020 1410 LTG Randall Level modified independent at 07/24/2020 1410 LTG Adaptive Equipment none at 07/24/2020 1410 LB Dressing Goal Most Recent Value LTG Status new at 07/24/2020 1410 LTG Randall Level minimum assist (75% patient effort) at 07/24/2020 1410 LTG Adaptive Equipment none at 07/24/2020 1410 lan of Care - Evgeny Pink RN - 07/24/2020 1:31 PM PDTAssess orientation, monitor VS. Pt A&Ox4, VSS at this time. Assist with ADLs as needed. Started on entresto PO. All questions and concerns ad dressed, pt verbalized understanding. Will continue to monitor. Problem: Adult Inpatient Plan of Care Goal: Plan of Care Review 07/24/2020 1331 by Evgeny Yung RN Outcome: Ongoing, progressing Flowsheets (Taken 07/24/2020 1331) Plan of Care Reviewed With: patient 07/24/20201330 by Evgeny Yung RN Outcome: Ongoing, progressing Problem: Adult Inpatient Plan of Care Goal: Optimal Comfort and Wellbeing 07/24/2020 133 by Evgeny Yung RN Outcome: Ongoing, progressing 07/24/20201330 by Evgeny Yung RN Outcome: Ongoing, progressing Intervention: Provide Person-Centered Care Flowsheets (Taken 07/24/2020 133) Trust Relationship/Rapport: care explained choices provided emotional support provided empathic listening provided questions answered thoughts/feelings acknowledged reassurance provided questions encouraged Problem: COVID-19 Confirmed or Rule-Out Description: Resident requires specific care to avoid complications secondary to COVID-19 Goal: Resident will remain free of complications due to COVID-19 Description: 1. Review and update the resident's isolation status in the Isolation activity 2. Keep the resident's door closed at all times and limit movement of the resident outside of the room to medically essential purposes. If applicable, transfer resident to a single-[facility] room 3. Educate and reinforce infection prevention and control practices recommended by CDC 4. Frequently monitor for development of more severe symptoms 5. Use appropriate PPE when providing care for resident 6. Reinforce no visitor policy and non-essential health care personnel policy, except for c ertain compassionate care situations 7. If worsening of symptoms occur, alert the nearest Hospital caring for confirmed COVID-19 patients and arrange for transfer with proper precautions including placing a facemask on t he resident during transfer 8. Communicate information about known or suspected case of COVID-19 to appropraite public health personnel 9. Avoid procedures that are likely to induce coughing (e.g., sputum induction, open suctio heath of airways). If required, do so in a Airborne Infection Isolation Room. The health care provider in the room should wear an N95 or higher-level respirator, eye protection, gloves, and a gown. The number of HCP present during the procedure should be limited to only those essential for resident care and procedure support. Visitors should not be present for the pr ocedure. Clean and disinfect procedure room surfaces promptly 10. Update resident, family, and resident representatives as needed 07/24/20201330 by Evgeny Yung RN Outcome: Ongoing, progressing 07/24/20201330 by Evgeny Yung RN Outcome: Ongoing, progressing lan of Vijaya Brown MS CCC-OPER[employer]ORS SCHO[employer] MANAGER - 07/24/2020 12:00 PM PDTFormatting of this note might be differen t from the original. Speech Therapy Bedside Swallow Treatment Note Swallow Recommendations Recommended Solid Texture: easy to chew (EC7) Recommended Liquid Texture: thin liquids (TN0) Recommended Medication Delivery: crushed pills with puree, if able Recommended Feeding/Eating Techniques: oral care before and after each meal, maintain uprig ht posture during/after eating for 30 mins, cue patient to swallow 2-3 times per bite, one s mall sip or bite at a time, limit distractions Summary: Pt seen with lunch tray. No concerns per RN regardng swallowing solids. Pt wantin g thin liquids. Education regarding aspiration risk and strong recommendations for oral care before/after meals to prevent aspiration pneumonia given to patient. Pt did not recall prec autions from video. Delayed throat clear observed x1 with 3 oz water by cup with burping as well. O[employer] MANAGER to follow. Recommend staff to remind patient to follow swallow precautions. Recommended discharge disposition: cognitive assist Post discharge speech language pathology recommendation: re-evalulate at next level of care Planned Interventions: diet texture modification, compensatory strategies, patient/caregive r education Recommended Frequency: 3 times/wk for pending MBSS results with reassessment due by 020 Education Completed Dysphagia: Explain results of session, speech-language pathology role, plan of care, most s afe diet and swallow precautions Learners: Patient Readiness: Acceptance Method: Explanation Response: Verbalizes Understanding, Needs Reinforcement, and No Evidence of Learning Dysphagia Goal Most Recent Value LTG Status progressing, continued at 07/21/2020 1130 LTG Pt will eat and drink safely by mouth. at 07/21/2020 1130 lan of Kellee Antunez RN - 07/24/2020 1:14 AM PDTPt AOx4. Max temp 99.6f. Max HR 11 8. Other VSS. Afebrile. Diane catheter positioned below bladder. Pt encouraged to drink mild ly thick water. Pt refused scheduled Magic mouthwash pt states "it's not helping." Breathing non-labored. Currently on room air. Denies SOB. Denies pain. Appears comfortable. Bed alarm on. No acute changes from initial shift assessment. Will pass all cares to day shift RN. Chart review complete. Kellee Al RN Problem: Fall Injury Risk Goal: Absence of Fall and Fall-Related Injury Outcome: Ongoing, progressing Note: Patient remains free from falls this shift. Fall prevention measures in place. Visu alized hourly. Problem: Infection (Sepsis/Septic Shock) Goal: Absence of Infection Signs/Symptoms Outcome: Ongoing, progressing Note: Max temp 99.9f. Droplet and contact precautions in place. Aseptic technique in place. Single pt room provided. Problem: Glycemic Control Impaired Goal: Blood Glucose Level Within Desired Range Outcome: Ongoing, progressing Note: Blood sugar monitoring. Problem: COVID-19 Confirmed or Rule-Out Description: Resident requires specific care to avoid complications secondary to COVID-19 Goal: Resident will remain free of complications due to COVID-19 Description: 1. Review and update the resident's isolation status in the Isolation activity 2. Keep the resident's door closed at all times and limit movement of the resident outside of the room to medically essential purposes. If applicable, transfer resident to a single-pe rson room 3. Educate and reinforce infection prevention and control practices recommended by CDC 4. Frequently monitor for development of more severe symptoms 5. Use appropriate PPE when providing care for resident 6. Reinforce no visitor policy and non-essential health care personnel policy, except for c ertain compassionate care situations 7. If worsening of symptoms occur, alert the nearest Hospital caring for confirmed COVID-19 patients and arrange for transfer with proper precautions including placing a facemask on t he resident during transfer 8. Communicate information about known or suspected case of COVID-19 to appropraite public health personnel 9. Avoid procedures that are likely to induce coughing (e.g., sputum induction, open suctio heath of airways). If required, do so in a Airborne Infection Isolation Room. The health care provider in the room should wear an N95 or higher-level respirator, eye protection, gloves, and a gown. The number of HCP present during the procedure should be limited to only those essential for resident care and procedure support. Visitors should not be present for the pr ocedure. Clean and disinfect procedure room surfaces promptly 10. Update resident, family, and resident representatives as needed Outcome: Ongoing, progressing Note: Afebrile. Denies SOB. Problem: Skin Injury Risk Increased Goal: Skin Health and Integrity Outcome: Ongoing, progressing Note: Full skin assessment completed. Skin kept clean and dry. lan of Michele Sullivan RN - 07/23/2020 6:46 PM PDT Problem: Adult Inpatient Plan of Care Goal: Optimal Comfort and Wellbeing Outcome: Ongoing, progressing Problem: Fall Injury Risk Goal: Absence of Fall and Fall-Related Injury Outcome: Ongoing, progressing Problem: Oral Intake Inadequate Goal: Improved Oral Intake Description: Pt will consume >50% meals/snacks/suppl Outcome: Ongoing, progressing Pt A&O, VSS, up to chair X1 for a few hrs, no acute changes this shift, pt resting in bed. Will continue to monitor. Michele Sands RN lan of Ale Garcia RN - 07/23/2020 4:03 AM PDTVSS. Pt appears to be resting comfortably. Denie s pain or discomfort. No acute changes since previous shift. Bed in low locked position, marycruz l light within reach. End of shift review completed by this RN. Ale Rahman RN Problem: Fall Injury Risk Goal: Absence of Fall and Fall-Related Injury Outcome: Ongoing, progressing Problem: Skin Injury Risk Increased Goal: Skin Health and Integrity Outcome: Ongoing, progressing lan of Michele Sullivan RN - 07/22/2020 6:57 PM PDT Problem: Adult Inpatient Plan of Care Goal: Optimal Comfort and Wellbeing Outcome: Ongoing, progressing Problem: Infection (Sepsis/Septic Shock) Goal: Absence of Infection Signs/Symptoms Outcome: Ongoing, progressing Problem: Oral Intake Inadequate Goal: Improved Oral Intake Description: Pt will consume >50% meals/snacks/suppl Outcome: Ongoing, progressing Pt A&O, VSS, no acute changes this shift. Will continue to monitor. Mandaeism J. Sands, RN lan of Care - aldo, Mary Lopez RN - 07/21/2020 9:57 PM PDTPatient resting in bed. Vital signs have been stable. He has been afebrile. No complaints of nausea, vomiting, or pain. No acute changes from previous assessment. Hourly rounding done and needs addressed. End of shift audit done and 24 hour chart check completed. Mary Del Angel RN 07/22/2020 6:34 AM PDT Problem: Adult Inpatient Plan of Care Goal: Plan of Care Review Outcome: Ongoing, progressing Note: Plan of care reviewed with patient. All questions answered and patient stated unders tanding. Problem: Fall Injury Risk Goal: Absence of Fall and Fall-Related Injury Outcome: Ongoing, progressing Note: Patient educated on increased risk for falls while in hospital. Bed in low and lock ed position. Bed alarm on. Call light and personal belongings within reach. Room cleared of extra items. Non skid footwear use encouraged. High risk for fall sign placed outside p atients room. Problem: Skin Injury Risk Increased Goal: Skin Health and Integrity Outcome: Ongoing, progressing Note: Skin kept clean, dry, and intact. Shearing avoided. Pressure to bony prominences rel ieved. Patient encouraged to turn frequently. Problem: COVID-19 Confirmed or Rule-Out Description: Resident requires specific care to avoid complications secondary to COVID-19 Goal: Resident will remain free of complications due to COVID-19 Description: 1. Review and update the resident's isolation status in the Isolation activity 2. Keep the resident's door closed at all times and limit movement of the resident outside of the room to medically essential purposes. If applicable, transfer resident to a single[facility] room 3. Educate and reinforce infection prevention and control practices recommended by CDC 4. Frequently monitor for development of more severe symptoms 5. Use appropriate PPE when providing care for resident 6. Reinforce no visitor policy and non-essential health care personnel policy, except for c ertain compassionate care situations 7. If worsening of symptoms occur, alert the nearest Hospital caring for confirmed COVID-19 patients and arrange for transfer with proper precautions including placing a facemask on t he resident during transfer 8. Communicate information about known or suspected case of COVID-19 to appropraite public health personnel 9. Avoid procedures that are likely to induce coughing (e.g., sputum induction, open suctio heath of airways). If required, do so in a Airborne Infection Isolation Room. The health care provider in the room should wear an N95 or higher-level respirator, eye protection, gloves, and a gown. The number of HCP present during the procedure should be limited to only those essential for resident care and procedure support. Visitors should not be present for the pr ocedure. Clean and disinfect procedure room surfaces promptly 10. Update resident, family, and resident representatives as needed Outcome: Ongoing, progressing lan of Fuad - Michele Santana RN - 07/21/2020 6:51 PM PDT Problem: Adult Inpatient Plan of Care Goal: Optimal Comfort and Wellbeing Outcome: Ongoing, progressing Problem: Fall Injury Risk Goal: Absence of Fall and Fall-Related Injury Outcome: Ongoing, progressing Pt A&O, VSS, IV fluids infusing. No aucte changes, will continue to monitor. Michele he RN lan of Care - Korey Acharya, PT - 07/21/2020 4:34 PM PDTFormatting of this note might be different fr om the original. Physical Therapy Initial Evaluation Note Recommended discharge disposition: home with assist Post discharge physical therapy recommendation: home health Equipment Recommendations: (anticipate none) Barriers to community-based discharge Physical Impairment Impairments Found (describe specific impairments): aerobic capacity/endurance, functional e ndurance/activity tolerance, gait, locomotion, and balance Planned Interventions: balance training, gait training, strengthening, transfer training, s tair training, patient/family education Recommended Frequency: 3 times/wk for 7 days with reassessment due by 07/28/20 Summary: Chart reviewed, evaluation completed. Pt admitted after falling out of his chair at home and being down for several hours. Noted to have significant LUE/L shoulder skin inte grity issues. At rest however, he denies any pain and had no complaints throughout eval. He is also with positive covid 19. Productive cough is noted with exertion. Pt completing most components of mobility with CGA for steadying. He appears to have good support available at home via adult children and spouse. He mobilizes fairly with the SPC, may benefit from trial ing a walker as he does appear to prefer to reach out with his free UE when using hte cane f or extra stability. No loss of balance noted and pt able to stand at sink for several minute s to complete hygiene ADLs without physical assist required. He is in the chair after activi ty. Anticipate home with HH will be feasible. Vitals at rest in supine: HR 88, BP 143/71, Sp o2 94% RA. Living Environment Lives With: spouse Living Arrangements: house Transportation Available: family or friend will provide Living Environment Comment: Resides with spouse in [place]. They have 2 adult sons who have be en assisting as both pt and his spouse had Covid-19 in May. 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 2 HÉCTOR. Walk in shower. ` Prior Functional Level Comment: Hx of falls. Mostly indep with mobility/ADLs at baseline. Precautions Precaution Comment: Skin integrity L shoulder/humerus Precautions/Limitations: falls Cognitive Assessment Mood/Behavior: calm, cooperative Orientation: oriented x 4 Arousal Level: arouses to voice Speech: clear, logical Bed Mobility Additional Documentation: rolling, supine to/from sit Roll Left, Level of Randall: stand by assist Roll Right, Level of Randall: stand by assist Supine to Sit, Level of Randall: minimal assist (75% patient effort) Safety Issues: decreased use of legs for bridging/pushing, decreased use of arms for pushin g/pulling Impairments: strength decreased Transfers Additional Documentation: sit to/from stand Sit-Stand, Level of Randall: contact guard assist Stand-Sit, Level of Randall: contact guard assist [id number], Assistive Device: gait belt Safety Issues: sequencing ability decreased Impairments: strength decreased, impaired balance Gait Level of Randall: contact guard assist Assistive Device: gait belt, cane (straight, single point) Distance (feet): 60 Muscle Tone Assessment Muscle Tone Assessment: within normal limits Sensory Assessment Sensation Comments: Reports numbness in feet from diabetes Range of Motion ROM Comments: Limited LUE mobility due to skin abrasions Strength Strength Comments: Mild deconditioning noted, adequate for functional mobility Balance Sitting Balance: Static: good balance Sitting Balance: Dynamic: good balance Standing Balance: Static: fair balance Standing Balance: Dynamic: fair balance Goals Reflects last filed data and may be from multiple contributors. All Bed Mobility Goal Most Recent Value LTG Randall Level supervised at 07/21/2020 1520 All Transfers Goal Most Recent Value LTG Randall Level supervised at 07/21/2020 1520 Gait Goal Most Recent Value LTG Randall Level supervised at 07/21/2020 1520 LTG Assistive Device other (see comments) [least restrictive device] at 07/21/2020 1520 LTG Distance (feet) 150 at 07/21/2020 1520 lan of Care - [facility] Karissa membreno MA, CCC-[employer] S[employer] MANAGER - 07/21/2020 2:45 PM PDTFormatting of this note might be dif ferent from the original. Speech Therapy Video Fluoroscopy Swallow Study (VFSS) VFSS Evaluation Summary: Pt upright in chair, alert, and following directions during today' s study. Pt with deep penetration to the level of the vocal cords with incomplete retrieval with thin liquids. Pt instructed to cough in attempts to clear residue from laryngeal vestib ule. Cough was not effective. Residue at the level of the vocal cords is seen throughout the study. During puree trial laryngeal residue is observed pass below the level of the vocal c ords and then return to the level of the vocal cords. Compensatory strategies were limited a s pt reports he is unable to move his head up/down or turn side to side d/t previous procedu res he's had. Laryngeal penetration was eliminated when trialing Mildly thick liquid. With r egular solids, pt chewed trial and then requested to spit it out as it was "too dry and hard ." Pt reporting he could no longer continue with study "I feel like I'm going to vomit. We n eed to stop." Study was discontinued. Pt at elevated risk for aspiration with thin liquids a s he is unable to clear residue from laryngeal vestibule. Pt educated re: Mildly thick liqui d and soft and bite size diet. Pt in agreement to trial diet recommendations. Recommended Solid Texture: soft and bite sized (SB6) Recommended Medication Delivery: crushed pills with puree, if able Recommended Liquid Texture: mildly thick liquids (MT2) Recommended Feeding/Eating Techniques: maintain upright posture during/after eating for 30 mins, oral care before and after each meal, monitor for signs of aspiration, cue patient to swallow 2-3 times per bite, single sips, one small sip or bite at a time, limit distractions Thin - VFSS Mode Of Presentation: cup, self fed Oral Phase: posterior spillage Pharyngeal Phase: delayed onset, impaired base of tongue movement, vallecular residue, vall ecular pooling, pyriform residue, pyriform pooling, impaired epiglottic inversion, impaired hyoid excursion, reduction in laryngeal movement Rosenbek's Penetration Aspiration Scale: 5-->contrast contacts vocal cords, visible residue remains (penetration) Mildly Thick - VFSS Mode Of Presentation: cup, self fed Oral Phase: posterior spillage Pharyngeal Phase: impaired hyoid excursion, impaired base of tongue movement, impaired epig lottic inversion, reduction in laryngeal movement, vallecular residue, vallecular pooling, p yriform residue Rosenbek's Penetration Aspiration Scale: 1-->no aspiration, contrast does not enter airway Extremely Thick/Pureed - VFSS Mode Of Presentation: self fed, spoon Oral Phase: posterior spillage Pharyngeal Phase: impaired base of tongue movement, impaired hyoid excursion, vallecular re sidue, vallecular pooling, impaired epiglottic inversion, reduction in laryngeal movement Rosenbek's Penetration Aspiration Scale: 1-->no aspiration, contrast does not enter airway Solid (IDDSI LEVELS 5-7) - VFSS Mode Of Presentation: spoon(soft and bite size ) Oral Phase: slow oral transit time, posterior spillage Pharyngeal Phase: delayed onset, impaired epiglottic inversion, impaired hyoid excursion, i mpaired base of tongue movement, vallecular pooling, reduction in laryngeal movement Rosenbek's Penetration Aspiration Scale: 1-->no aspiration, contrast does not enter airway Recommend Repeat MBSS? yes - date to be completed TBD Recommended Frequency: 3 times/wk for 7 days Education Completed Explained results of MBS, recommendations, safe swallow strategies, and POC. Learners: Patient Readiness: Acceptance Method: Explanation and Demonstration Response: Verbalizes Understanding and Needs Reinforcement Goals Reflects last filed data and may be from multiple contributors. Dysphagia Goal Most Recent Value LTG Status progressing, continued at 07/21/2020 1130 LTG Pt will eat and drink safely by mouth. at 07/21/2020 1130 lan of Care - Nilesh Yung RN - 07/21/2020 6:53 AM PDTPatient is alert and orient, forgetful at times. SBP in the 90's to 100's, other VSS, afebrile and on RA. Repositioned several times during the night to promote skin integrity, encouraged patient to shift positions often. Pat ient compliant with care. No other acute changes from previous assessment. End of shift, audit complete. NILESH YUNG, RN Problem: Skin Injury Risk Increased Goal: Skin Health and Integrity Outcome: Ongoing, progressing Problem: Infection (Sepsis/Septic Shock) Goal: Absence of Infection Signs/Symptoms Outcome: Ongoing, progressing Problem: Glycemic Control Impaired Goal: Blood Glucose Level Within Desired Range Outcome: Ongoing, progressing Problem: COVID-19 Confirmed or Rule-Out Description: Resident requires specific care to avoid complications secondary to COVID-19 Goal: Resident will remain free of complications due to COVID-19 Description: 1. Review and update the resident's isolation status in the Isolation activity 2. Keep the resident's door closed at all times and limit movement of the resident outside of the room to medically essential purposes. If applicable, transfer resident to a single-pe on room 3. Educate and reinforce infection prevention and control practices recommended by CDC 4. Frequently monitor for development of more severe symptoms 5. Use appropriate PPE when providing care for resident 6. Reinforce no visitor policy and non-essential health care personnel policy, except for c ertain compassionate care situations 7. If worsening of symptoms occur, alert the nearest Hospital caring for confirmed COVID-19 patients and arrange for transfer with proper precautions including placing a facemask on t he resident during transfer 8. Communicate information about known or suspected case of COVID-19 to appropraite public health personnel 9. Avoid procedures that are likely to induce coughing (e.g., sputum induction, open suctio heath of airways). If required, do so in a Airborne Infection Isolation Room. The health care provider in the room should wear an N95 or higher-level respirator, eye protection, gloves, and a gown. The number of HCP present during the procedure should be limited to only those essential for resident care and procedure support. Visitors should not be present for the pr ocedure. Clean and disinfect procedure room surfaces promptly 10. Update resident, family, and resident representatives as needed Outcome: Ongoing, progressing lan of Care - Jakob Toure RN - 07/20/2020 6:55 PM PDTPt transferred to the 8th floor by FLY Elias. All belongings with pt. Report given to receiving RN. Diane put out 400mL. NS continued to run o gisela shift. Pt has a very poor appetite. Speech therapy saw pt, will do video swallow tomorro w. No changes to diet. Problem: Skin Injury Risk Increased Goal: Skin Health and Integrity Outcome: Ongoing, progressing Note: Pt turned and repositioned to maintain skin integrity. JAKOB LYNNE RN lan of [facility] - Hussein Lawrence RN - 07/20/2020 6:51 PM PDTPt arrived to floor and placed in bed. Pt AAOx4 calm and cooperative. Diane placed below patient. IV patent and infusing. Cares and report given to oncoming nurse. P M PDTPlan of [facility] - Vijaya Salinas MS [facility] MANAGER - 07/20/2020 4:20 PM PDTFormatting of th is note might be different from the original. Speech Therapy Bedside Swallow Initial Evaluation Note Swallow Recommendations Recommended Solid Texture: regular (RG7) Recommended Liquid Texture: thin liquids (TN0) Recommended Medication Delivery: whole pills with puree, crushed pills with puree, if able Recommended Feeding/Eating Techniques: maintain upright posture during/after eating for 30 mins, oral care before and after each meal, monitor for signs of aspiration Summary: Patient seen at bedside for initial [employer] MA[employer]GER evaluation due to RN report of coughing m ultiple times when drinking water. Pt seen with dinner tray. Coughing observed several times immediately after drinking thin water and then delayed coughing noted after mashed potato t rials. Recommend MBSS to be completed to assess swallow physiology and airway protection. Recommen d obtaining AP view if possible d/t hx of GERD and dysphagia in his chart. Post discharge speech language pathology recommendation: re-evalulate at next level of care Planned Interventions: diet texture modification, compensatory strategies, patient/caregive r education Recommended Frequency: 3 times/wk for pending MBSS results with reassessment due by 0 Education Completed Dysphagia: Explain results of session, speech-language pathology role, plan of care, most s afe diet and swallow precautions Learners: Patient Readiness: Acceptance Method: Explanation Response: Verbalizes Understanding and Needs Reinforcement Dysphagia Goal Most Recent Value LTG Status new at 07/20/2020 1620 LTG Pt will eat and drink safely by mouth. at 07/20/2020 1620 lan of Harley Abebe MSW - 07/20/2020 3:02 PM PDTCare Management Initial Assessment Readmission Risk: HIGH Status Prior to Admission or Illness Arrival From: admitted as an inpatient Lives With: spouse Living Arrangements: house Caregiver For: no one Functional Status: Before hospitalization, Pt was independent at baseline, was driving Caregiving Concerns: Pt sons available at home Home Accessibility: no concerns Transportation Available: family or friend will provide Able to return to prior living: yes Care Management Concerns Readmission Within Last 30 Days: no previous admission in last 30 days PCP: Erin Forrester MD Contact Information Family Contact Information: Name: Beth Mas [place] Needs Assessment Current Outpt/Agency/Support Groups: none Community Agency Name: may need home health Anticipated Changes Related to Illness: inability to care for self Concerns to be Addressed: adjustment to diagnosis/illness concerns Services Anticipated at Discharge: home health care Equipment Used at Home: 4 wheeled walker (4WW) Equipment Needed after Discharge: none Durable Medical Equipment Provider: none Pharmacy/Medication Needs: other (see comments)(pending d/c meds) [facility] Transportation Needs: family or friend will provide Initial Plan Anticipated Discharge Disposition: home with assist, home with home health Expected DC Date: yes Steps Taken Toward Discharge: initial assessment Next Steps: continue to follow for discharge planning Notes: 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 Pt spouse was also hospitalized for PNA. Pt has been receiving assistance from two Adult Son s (Gucci and Nam Mas) who have been assisting with cooking, cleaning and transportation. Pt spouse states Pt was not receiving previous home oxygen, home health, outpatient dialysi s or previous blood thinners. Pt and Pt spouse reside in [place], [place], [place]. Pt may benefit from Home Health PT pending clinical course. Electronically signed: ABBIE CARMICHAEL 07/20/2020 3:02 PM PDT lan of [facility] - Yesika De Los Santos RN - 07/20/2020 4:22 AM PDT Problem: Hemodynamic Instability (Sepsis/Septic Shock) Goal: Effective Tissue Perfusion Outcome: Ongoing, progressing Patient remains hemodynamically stable. SBP remains > 100. Problem: COVID-19 Confirmed or Rule-Out Description: Resident requires specific care to avoid complications secondary to COVID-19 Goal: Resident will remain free of complications due to COVID-19 Description: 1. Review and update the resident's isolation status in the Isolation activity 2. Keep the resident's door closed at all times and limit movement of the resident outside of the room to medically essential purposes. If applicable, transfer resident to a single-pe on room 3. Educate and reinforce infection prevention and control practices recommended by CDC 4. Frequently monitor for development of more severe symptoms 5. Use appropriate PPE when providing care for resident 6. Reinforce no visitor policy and non-essential health care personnel policy, except for c ertain compassionate care situations 7. If worsening of symptoms occur, alert the nearest Hospital caring for confirmed COVID-19 patients and arrange for transfer with proper precautions including placing a facemask on t he resident during transfer 8. Communicate information about known or suspected case of COVID-19 to appropraite public health personnel 9. Avoid procedures that are likely to induce coughing (e.g., sputum induction, open suctio heath of airways). If required, do so in a Airborne Infection Isolation Room. The health care provider in the room should wear an N95 or higher-level respirator, eye protection, gloves, and a gown. The number of HCP present during the procedure should be limited to only those essential for resident care and procedure support. Visitors should not be present for the pr ocedure. Clean and disinfect procedure room surfaces promptly 10. Update resident, family, and resident representatives as needed Outcome: Ongoing, progressing Patient remains on RA. Plan of Care - Clare Duque ARNP - 07/19/2020 4:54 PM PDTPatient stable for transfer to [facility] stable off pressors Abx changed to keflex BID as per outpatient dose for knee infection. To follow up with ID o n discharge. Dr. Vickers has been consulted and will see patient today Signout given to Dr. Bragg who has graciously accepted this patient to the hospitalist [facility]. Orders placed for transfer. PADDY Redmond 07/19/2020 4:55 PM PDT lan of Care - Cathi Damon RN - 07/19/2020 2:42 AM PDT Problem: Hemodynamic Instability (Sepsis/Septic Shock) Goal: Effective Tissue Perfusion Outcome: Ongoing, progressing Pt was transferred to [facility] due to hypotension and TTE showing 25-30%. Pt so far has not ne eded pressors, BP has been stable. Monitoring Q15 mins. Problem: Infection (Sepsis/Septic Shock) Goal: Absence of Infection Signs/Symptoms Outcome: Ongoing, progressing Pt has been spiking temps throughout the past several days, was 102.6F at 2000. Started Zo syn due to LA 2.1, procal elevated, WBCs at 11.7. Pt also COVID positive. Sepsis team follow ing. Problem: Glycemic Control Impaired Goal: Blood Glucose Level Within Desired Range Outcome: Ongoing, progressing Was found down on the with low blood sugar. ACHS checks, was WNL at 2100. Problem: COVID-19 Confirmed or Rule-Out Description: Resident requires specific care to avoid complications secondary to COVID-19 Goal: Resident will remain free of complications due to COVID-19 Description: 1. Review and update the resident's isolation status in the Isolation activity 2. Keep the resident's door closed at all times and limit movement of the resident outside of the room to medically essential purposes. If applicable, transfer resident to a single-pe rson room 3. Educate and reinforce infection prevention and control practices recommended by CDC 4. Frequently monitor for development of more severe symptoms 5. Use appropriate PPE when providing care for resident 6. Reinforce no visitor policy and non-essential health care personnel policy, except for c ertain compassionate care situations 7. If worsening of symptoms occur, alert the nearest Hospital caring for confirmed COVID-19 patients and arrange for transfer with proper precautions including placing a facemask on t he resident during transfer 8. Communicate information about known or suspected case of COVID-19 to [facility] public health personnel 9. Avoid procedures that are likely to induce coughing (e.g., sputum induction, open suctio heath of airways). If required, do so in a Airborne Infection Isolation Room. The health care provider in the room should wear an N95 or higher-level respirator, eye protection, gloves, and a gown. The number of HCP present during the procedure should be limited to only those essential for resident care and procedure support. Visitors should not be present for the pr ocedure. Clean and disinfect procedure room surfaces promptly 10. Update resident, family, and resident representatives as needed Outcome: Ongoing, progressing Pt denies SOB, on 2L NC breathing in 20s. COVID precautions in place. Electronically cameron d by Cathi Ruiz RN at 07/19/2020 2:49 AM PDTdocumented in this encounter Plan of Treatment +--------+ + + + + | Date | Type | Specialty | Care Team | Description | +--------+ + + + + | 09/20/ | Procedure | Cardiology | | | 2019 | visit | | | | +--------+ + + + + | 12/20/ | Procedure | Cardiology | | | | 2020 | visit | | | | +--------+ + + + + + +---------+--------+ + + | Name | Type | Priori | Associated Diagnoses | Date/Time | | | | ty | | | + +---------+--------+ + + | VAS Upper Extremity | Imaging | Routin | | 07/18/2020 8:33 PM | | Venous Left | | e | | PDT | + +---------+--------+ + + + +---------+--------+ + + | Name | Type | Priori | Associated Diagnoses | Order Schedule | | | | ty | | | + +---------+--------+ + + | VAS Upper Extremity | Imaging | Routin | | One time imaging One | | Venous Left | | e | | time imaging for 1 | | | | | | Occurrences starting | | | | | | 07/18/2020 until | | | | | | 07/18/2020 | + +---------+--------+ + + + + +--------+ + + | Name | Type | Priori | Associated Diagnoses | Order Schedule | | | | ty | | | + + +--------+ + + | Ambulatory referral | Outpatient | Routin | Coronary artery | Ordered: 07/25/2020 | | to Located Within [facility]iology | Referral | e | disease involving | | | | | | [place] coronary | | | | | | artery of [place] | | | | | | heart without angina | | | | | | pectoris Acute on | | | | | | chronic systolic | | | | | | heart failure (HCC) | | + + +--------+ + + | Referral to Home | Outpatient | Routin | Ischemic | Ordered: 07/25/2020 | | Health | Referral | e | cardiomyopathy | | + + +--------+ + + documented as of this encounter [...] documented in this encounter Results POC Glucose (07/25/2020 7:28 AM PDT) + + + + + + | Component | Value | Ref Range | Performed | Pathologist | | | | | At | Signature | + + + + + + | Glucose, | 134 (H)Comment: Testing | 65 - 99 mg/dL | [facility] | | | POC | performed at [facility] [place] | | [facility]AT[facility] | | | | [address];[place] | | | | | | [address] | | | | + + + + + + + + | Specimen | + + | | + + + + + + + | Performing | Address | City/State/Zipcode | Phone Number | | Organization | | | | + + + + + | [facility] | [address] | [place] [address] | [phone] | + + + + + CBC with Differential (07/25/2020 5:28 AM PDT) + + + + + [...] LABORATORY | | | | [place], [address] [facility] | | | | | | [place] | | | | | | [address] | | | | + + + + + + + + | Specimen | + + | Blood | + + + + + + + | Performing | Address | City/State/Zipcode | Phone Number | | Organization | | | | + + + + + | [facility] | [address] | [place] [address] | [phone] | + + + + + Protime INR (07/25/2020 5:28 AM PDT) + + + + + + | Component | Value | Ref Range | Performed | Pathologist | | | | | At | Signature | + + + + + + | INR | 3.6Comment: REFERENCE | | [facility] | | | | RANGE:0.9 - 1.2 [...] | | | | | performed at [facility] [place] | | | | | | [address];[place] | | | | | | [address] | | | | + + + + + + + + | Specimen | + + | Blood | + + + + + + + | Performing | Address | City/State/Zipcode | Phone Number | | Organization | | | | + + + + + | [facility] | [address] | [place] [address] | [phone] | + + + + + Comprehensive Metabolic Panel (07/25/2020 5:28 AM PDT) + + + + + [...] | | | | | performed at [facility], [address] | | | | | | [facility], | | | | | | [place] [address] | | | | + + + + + + + + | Specimen | + + | Blood | + + + + + + + | Performing | Address | City/State/Zipcode | Phone Number | | Organization | | | | + + + + + | [facility] | [address] | [place] [address] | [phone] | + + + + + POC Glucose (07/24/2020 8:29 PM PDT) + + + + + + | Component | Value | Ref Range | Performed | Pathologist | | | | | At | Signature | + + + + + + | Glucose, | 136 (H)Comment: Testing | 65 - 99 mg/dL | [facility] | | | POC | performed at [facility] [place];[address] | | LABORATORY | | | | [address];[place] | | | | | | [address] | | | | + + + + + + + + | Specimen | + + | | + + + + + + + | Performing | Address | City/State/Zipcode | Phone Number | | Organization | | | | + + + + + | [facility] | [address] | [place] [address] | [phone] | + + + + + POC Glucose (07/24/2020 4:33 PM PDT) + + + + + + | Component | Value | Ref Range | Performed | Pathologist | | | | | At | Signature | + + + + + + | Glucose, | 167 (H)Comment: Testing | 65 - 99 mg/dL | [facility] | | | POC | performed at [facility] [place];[address] | | LABORATORY | | | | [address];[place], [place] | | | | | | [address] | | | | + + + + + + + + | Specimen | + + | | + + + + + + + | Performing | Address | City/State/Zipcode | Phone Number | | Organization | | | | + + + + + | [facility] | [address] | [place] [address] | [phone] | + + + + + POC Glucose (07/24/2020 12:18 PM PDT) + + + + + + | Component | Value | Ref Range | Performed | Pathologist | | | | | At | Signature | + + + + + + | Glucose, | 139 (H)Comment: Testing | 65 - 99 mg/dL | [facility] | | | POC | performed at [facility] [place] | | LABORATORY | | | | [address];[place] | | | | | | [address] | | | | + + + + + + + + | Specimen | + + | | + + + + + + + | Performing | Address | City/State/Zipcode | Phone Number | | Organization | | | | + + + + + | [facility] | [address] | [place] [address] | [phone] | + + + + + POC Glucose (07/24/2020 7:31 AM PDT) + + + + + + | Component | Value | Ref Range | Performed | Pathologist | | | | | At | Signature | + + + + + + | Glucose, | 129 (H)Comment: Testing | 65 - 99 mg/dL | [facility] | | | POC | performed at [facility] [place] | | LABORATORY | | | | [address];[place] | | | | | | [address] | | | | + + + + + + + + | Specimen | + + | | + + + + + + + | Performing | Address | City/State/Zipcode | Phone Number | | Organization | | | | + + + + + | [facility] | [address] | [place] [address] | [phone] | + + + + + CBC with Differential (07/24/2020 6:06 AM PDT) + + + + + + | Component | Value | Ref Range | Performed | Pathologist | | | | | At | Signature | + + + + + + | WBC | 9.21 | 3.80 - 11.00 | [facility] | | | | | K/uL | LABORATORY | | + + + + + + | Red Blood | 4.13 (L) | 4.20 - 5.70 | [facility] | | | Cells | | M/uL | LABORATORY | | + + + + + + | Hemoglobin | 11.5 (L) | 13.2 - 17.0 | [facility] | | | | | g/dL | LABORATORY | | + + + + + + | Hematocrit | 34.5 (L) | 39.0 - 50.0 % | [facility] | | | | | | LABORATORY | | + + + + + + | MCV | 83.5 | 80.0 - 100.0 fl | [facility] | | | | | | LABORATORY | | + + + + + + | MCH | 27.8 | 27.0 - 34.0 pg | [facility] | | | | | | LABORATORY | | + + + + + + | MCHC | 33.3 | 32.0 - 35.5 | [facility] | | | | | g/dL | LABORATORY | | + + + + + + | RDW-SD | 49.1 | 37 - 53 fl | [facility] | | | | | | LABORATORY | | + + + + + + | Platelet | 211 | 150 - 400 K/uL | [facility] | | | Count | | | LABORATORY | | + + + + + + | MPV | 11.0Comment: NO NORMAL | fl | [facility] | | | | RANGE ESTABLISHED | | LABORATORY | | + + + + + + | Diff Type | MANUAL | | [facility] | | | | | | LABORATORY | | + + + + + + | % Segmented | 78 | % | [facility] | | | | | | LABORATORY | | | Neutrophils | | | | | + + + + + + | % | 2 | % | [facility] | | | Metamyelocy | | | LABORATORY | | | jed | | | | | + + + + + + | % | 1 | % | [facility] | | | Myelocytes | | | LABORATORY | | + + + + + + | % | 9 | % | [facility] | | | Lymphocytes | | | LABORATORY | | + + + + + + | % Monocytes | 10 | % | [facility] | | | | | | LABORATORY | | + + + + + + | Neutrophils | 7.19 | 1.90 - 7.40 | [facility] | | | , Absolute | | K/uL | LABORATORY | | + + + + + + | Absolute | 0.18 (H) | 0.00 K/uL | [facility] | | | Metamyelocy | | | LABORATORY | | | jed | | | | | + + + + + + | Absolute | 0.09 (H) | 0.00 K/uL | [facility] | | | Myelocytes | | | LABORATORY | | + + + + + + | Absolute | 0.83 (L) | 1.00 - 3.90 | [facility] | | | Lymphocytes | | K/uL | LABORATORY | | + + + + + + | Absolute | 0.92 (H) | 0.00 - 0.80 | [facility] | | | Monocytes | | K/uL | LABORATORY | | + + + + + + | RBC | RBC AND PLT MORPHOLOGY | | [facility] | | | Morphology | APPEAR NORMALComment: | | LABORATORY | | | | Testing performed at | | | | | | [facility], [address] | | | | | | [place] | | | | | | [address] | | | | + + + + + + + + | Specimen | + + | Blood | + + + + + + + | Performing | Address | City/State/Zipcode | Phone Number | | Organization | | | | + + + + + | [facility] | [address] | [place] [address] | [phone] | + + + + + Basic Metabolic Panel (07/24/2020 6:06 AM PDT) + + + + + [...] 49 (L)Comment: GFR <60: | >60 | [facility] | | | GFR | CHRONIC KIDNEY [...] | | | | | | [facility] traceable | | | | | | equation.Testing | | | | | | performed at [facility], [address] | | | | | | [facility], | | | | | | [place] [address] | | | | + + + + + + + + | Specimen | + + | Blood | + + + + + + + | Performing | Address | City/State/Zipcode | Phone Number | | Organization | | | | + + + + + | [facility] | [address] | [place] [address] | [phone] | + + + + + Protime INR (07/24/2020 6:06 AM PDT) + + + + + + | Component | Value | Ref Range | Performed | Pathologist | | | | | At | Signature | + + + + + + | INR | 3.6Comment: REFERENCE | | [facility] | | | | RANGE:0.9 - 1.2 [...] | | | | | performed at [facility] [place] | | | | | | [facility];[place] | | | | | | [id number] | | | | + + + + + + + + | Specimen | + + | Blood | + + + + + + + | Performing | Address | City/State/Zipcode | Phone Number | | Organization | | | | + + + + + | [facility] | [address] | [place] [address] | [phone] | + + + + + POC Glucose (07/23/2020 8:02 PM PDT) + + + + + + | Component | Value | Ref Range | Performed | Pathologist | | | | | At | Signature | + + + + + + | Glucose, | 139 (H)Comment: Testing | 65 - 99 mg/dL | [facility] | | | POC | performed at [facility] [place] | | LABORATORY | | | | [address];[place] | | | | | | [address] | | | | + + + + + + + + | Specimen | + + | | + + + + + + + | Performing | Address | City/State/Zipcode | Phone Number | | Organization | | | | + + + + + | [facility] | [address] | [place] [address] | [phone] | + + + + + POC Glucose (07/23/2020 4:48 PM PDT) + + + + + + | Component | Value | Ref Range | Performed | Pathologist | | | | | At | Signature | + + + + + + | Glucose, | 157 (H)Comment: Testing | 65 - 99 mg/dL | [facility] | | | POC | performed at [facility] [place] | | LABORATORY | | | | [address];[place] | | | | | | [address] | | | | + + + + + + + + | Specimen | + + | | + + + + + + + | Performing | Address | City/State/Zipcode | Phone Number | | Organization | | | | + + + + + | [facility] | [address] | [place] [address] | [phone] | + + + + + POC Glucose (07/23/2020 11:29 AM PDT) + + + + + + | Component | Value | Ref Range | Performed | Pathologist | | | | | At | Signature | + + + + + + | Glucose, | 178 (H)Comment: Testing | 65 - 99 mg/dL | [facility] | | | POC | performed at [facility] [place] | | LABORATORY | | | | [address];[place], [place] | | | | | | [address] | | | | + + + + + + + + | Specimen | + + | | + + + + + + + | Performing | Address | City/State/Zipcode | Phone Number | | Organization | | | | + + + + + | [facility] | [address] | [place] [address] | [phone] | + + + + + POC Glucose (07/23/2020 8:10 AM PDT) + + + + + + | Component | Value | Ref Range | Performed | Pathologist | | | | | At | Signature | + + + + + + | Glucose, | 129 (H)Comment: Testing | 65 - 99 mg/dL | [facility] | | | POC | performed at [facility] [place];[address] | | LABORATORY | | | | [address];[place], [place] | | | | | | [address] | | | | + + + + + + + + | Specimen | + + | | + + + + + + + | Performing | Address | City/State/Zipcode | Phone Number | | Organization | | | | + + + + + | [facility] | [address] | [place] [address] | [phone] | + + + + + Magnesium (07/23/2020 5:29 AM PDT) + + + + + + | Component | Value | Ref Range | Performed | Pathologist | | | | | At | Signature | + + + + + + | Magnesium | 2.0Comment: Testing | 1.7 - 2.4 mg/dL | [facility] | | | | performed at [facility] [place];[address] | | LABORATORY | | | | [address];[place] | | | | | | [address] | | | | + + + + + + + + | Specimen | + + | Blood | + + + + + + + | Performing | Address | City/State/Zipcode | Phone Number | | Organization | | | | + + + + + | [facility] | [address] | [place] [address] | [phone] | + + + + + CBC with Differential (07/23/2020 5:29 AM PDT) + + + + + + | Component | Value | Ref Range | Performed | Pathologist | | | | | At | Signature | + + + + + + | WBC | 8.06 | 3.80 - 11.00 | [facility] | | | | | K/uL | LABORATORY | | + + + + + + | Red Blood | 4.06 (L) | 4.20 - 5.70 | [facility] | | | Cells | | M/uL | LABORATORY | | + + + + + + | Hemoglobin | 11.4 (L) | 13.2 - 17.0 | [facility] | | | | | g/dL | LABORATORY | | + + + + + + | Hematocrit | 34.4 (L) | 39.0 - 50.0 % | [facility] | | | | | | LABORATORY | | + + + + + + | MCV | 84.7 | 80.0 - 100.0 fl | [facility] | | | | | | LABORATORY | | + + + + + + | MCH | 28.1 | 27.0 - 34.0 pg | [facility] | | | | | | LABORATORY | | + + + + + + | MCHC | 33.1 | 32.0 - 35.5 | [facility] | | | | | g/dL | LABORATORY | | + + + + + + | RDW-SD | 51.8 | 37 - 53 fl | [facility] | | | | | | LABORATORY | | + + + + + + | Platelet | 175 | 150 - 400 K/uL | [facility] | | | Count | | | LABORATORY | | + + + + + + | MPV | 10.9Comment: NO NORMAL | fl | [facility] | | | | RANGE ESTABLISHED | | LABORATORY | | + + + + + + | Diff Type | MANUAL | | [facility] | | | | | | LABORATORY | | + + + + + + | % Segmented | 75 | % | [facility] | | | | | | LABORATORY | | | Neutrophils | | | | | + + + + + + | % Bands | 5 | % | [facility] | | | [...] + + + + | Neutrophils | 6.04 | 1.90 - 7.40 | [facility] | | | , Absolute | | K/uL | LABORATORY | | + + + + + + | Absolute | 0.40 (H) | 0.00 - 0.20 | [facility] | | | Band | | K/uL | LABORATORY | | | Neutrophils | | | | | + + + + + + | Absolute | 0.89 (L) | 1.00 - 3.90 | [facility] | | | Lymphocytes | | K/uL | LABORATORY | | + + + + + + | Absolute | 0.73 | 0.00 - 0.80 | [facility] | | | Monocytes | | K/uL | LABORATORY | | + + + + + + | RBC | RBC AND PLT MORPHOLOGY | | [facility] | | | Morphology | APPEAR NORMALComment: | | LABORATORY | | | | Testing performed at | | | | | | [facility] [place] [place] [address] | | | | | | Bl;[place] [address] | | | | + + + + + + + + | Specimen | + + | Blood | + + + + + + + | Performing | Address | City/State/Zipcode | Phone Number | | Organization | | | | + + + + + | [facility] | [address] | [place] [address] | [phone] | + + + + + Basic Metabolic Panel (07/23/2020 5:29 AM PDT) + + + + + + | Component | Value | Ref Range | Performed | Pathologist | | | | | At | Signature | + + + + + + | Na | 140 | 135 - 145 | [facility] | | | | | mmol/L | LABORATORY | | + + + + + + | K | 4.3 | 3.5 - 4.9 | [facility] | | | | | mmol/L | LABORATORY | | + + + + + + | Cl | 109 | 99 - 109 mmol/L | [facility] | | | | | | LABORATORY | | + + + + + + | CO2 | 23 | 23 - 32 mmol/L | [facility] | | | | | | LABORATORY | | + + + + + + | Anion Gap | 12 | 5 - 20 mmol/L | [facility] | | | | | | LABORATORY | | + + + + + + | Glucose | 124 (H) | 65 - 99 mg/dL | [facility] | | | | | | LABORATORY | | + + + + + + | BUN | 16 | 8 - 25 mg/dL | [facility] | | | | | | LABORATORY | | + + + + + + | Creatinine | 1.30 | 0.70 - 1.30 | [facility] | | | | | mg/dL | LABORATORY | | + + + + + + | BUN/Creatin | 12 | | [facility] | | | ine Ratio | | | LABORATORY | | + + + + + + | Calcium | 7.7 (L) | 8.5 - 10.5 | [facility] | | | | | mg/dL | LABORATORY | | + + + + + + | Estimated | 53 (L)Comment: GFR <60: | >60 | [facility] | | | GFR | CHRONIC KIDNEY [...] | | | | | | MDRD [facility] traceable | | | | | | equation.Testing | | | | | | performed at [facility], [address] | | | | | [facility], | | | | | | [place] [address] | | | | + + + + + + + + | Specimen | + + | Blood | + + + + + + + | Performing | Address | City/State/Zipcode | Phone Number | | Organization | | | | + + + + + | [facility] | [address] | [place] [address] | [phone] | + + + + + Protime INR (07/23/2020 5:29 AM PDT) + + + + + + | Component | Value | Ref Range | Performed | Pathologist | | | | | At | Signature | + + + + + + | INR | 4.2Comment: REFERENCE | | [facility] | | | | RANGE:0.9 - 1.2 [...] | | | | | performed at [facility] [place];[address] | | | | | | [address];[place] | | | | | | [address] | | | | + + + + + + + + | Specimen | + + | Blood | + + + + + + + | Performing | Address | City/State/Zipcode | Phone Number | | Organization | | | | + + + + + | [facility] | [address] | [place] [address] | [phone] | + + + + + CK Total (07/23/2020 5:29 AM PDT) + + + + + + | Component | Value | Ref Range | Performed | Pathologist | | | | | At | Signature | + + + + + + | CK TOTAL | 792 (H)Comment: Testing | 55 - 400 U/L | [facility] | | | | performed at [facility] [place];[address] | | LABORATORY | | | | [address];[place] | | | | | | [address] | | | | + + + + + + + + | Specimen | + + | Blood | + + + + + + + | Performing | Address | City/State/Zipcode | Phone Number | | Organization | | | | + + + + + | [facility] | [address] | [place] [address] | [phone] | + + + + + POC Glucose (07/22/2020 8:30 PM PDT) + + + + + + | Component | Value | Ref Range | Performed | Pathologist | | | | | At | Signature | + + + + + + | Glucose, | 143 (H)Comment: Testing | 65 - 99 mg/dL | [facility] | | | POC | performed at [facility] [place];[address] | | LABORATORY | | | | [address];[place], [place] | | | | | | [address] | | | | + + + + + + + + | Specimen | + + | | + + + + + + + | Performing | Address | City/State/Zipcode | Phone Number | | Organization | | | | + + + + + | [facility] | [address] | [place] [address] | [phone] | + + + + + POC Glucose (07/22/2020 4:56 PM PDT) + + + + + + | Component | Value | Ref Range | Performed | Pathologist | | | | | At | Signature | + + + + + + | Glucose, | 117 (H)Comment: Testing | 65 - 99 mg/dL | [facility] | | | POC | performed at [facility] [place];[address] | | LABORATORY | | | | [address];[place], [place] | | | | | | [address] | | | | + + + + + + + + | Specimen | + + | | + + + + + + + | Performing | Address | City/State/Zipcode | Phone Number | | Organization | | | | + + + + + | [facility] | [address] | [place] [address] | [phone] | + + + + + POC Glucose (07/22/2020 12:02 PM PDT) + + + + + + | Component | Value | Ref Range | Performed | Pathologist | | | | | At | Signature | + + + + + + | Glucose, | 133 (H)Comment: Testing | 65 - 99 mg/dL | [facility] | | | POC | performed at [facility] [place];[address] | | LABORATORY | | | | [address];[place] | | | | | | [address] | | | | + + + + + + + + | Specimen | + + | | + + + + + + + | Performing | Address | City/State/Zipcode | Phone Number | | Organization | | | | + + + + + | [facility] | [address] | [place] [address] | [phone] | + + + + + POC Glucose (07/22/2020 7:59 AM PDT) + + + + + + | Component | Value | Ref Range | Performed | Pathologist | | | | | At | Signature | + + + + + + | Glucose, | 103 (H)Comment: Testing | 65 - 99 mg/dL | [facility] | | | POC | performed at [facility] [place];[address] | | LABORATORY | | | | [address];[place], [place] | | | | | | [address] | | | | + + + + + + + + | Specimen | + + | | + + + + + + + | Performing | Address | City/State/Zipcode | Phone Number | | Organization | | | | + + + + + | [facility] | [address] | [place] [address] | [phone] | + + + + + Magnesium (07/22/2020 7:06 AM PDT) + + + + + + | Component | Value | Ref Range | Performed | Pathologist | | | | | At | Signature | + + + + + + | Magnesium | 2.1Comment: Testing | 1.7 - 2.4 mg/dL | [facility] | | | | performed at [facility];[address] | | LABORATORY | | | | [address];[place], [place] | | | | | | [address] | | | | + + + + + + + + | Specimen | + + | Blood | + + + + + + + | Performing | Address | City/State/Zipcode | Phone Number | | Organization | | | | + + + + + | [facility] | [address] | [place] [address] | [phone] | + + + + + CBC with Differential (07/22/2020 7:06 AM PDT) + + + + + + | Component | Value | Ref Range | Performed | Pathologist | | | | | At | Signature | + + + + + + | WBC | 7.24 | 3.80 - 11.00 | [facility] | | | | | K/uL | LABORATORY | | + + + + + + | Red Blood | 4.01 (L) | 4.20 - 5.70 | [facility] | | | Cells | | M/uL | LABORATORY | | + + + + + + | Hemoglobin | 11.4 (L) | 13.2 - 17.0 | [facility] | | | | | g/dL | LABORATORY | | + + + + + + | Hematocrit | 34.3 (L) | 39.0 - 50.0 % | [facility] | | | | | | LABORATORY | | + + + + + + | MCV | 85.5 | 80.0 - 100.0 fl | [facility] | | | | | | LABORATORY | | + + + + + + | MCH | 28.4 | 27.0 - 34.0 pg | [facility] | | | | | | LABORATORY | | + + + + + + | MCHC | 33.2 | 32.0 - 35.5 | [facility] | | | | | g/dL | LABORATORY | | + + + + + + | RDW-SD | 52.4 | 37 - 53 fl | [facility] | | | | | | LABORATORY | | + + + + + + | Platelet | 147 (L) | 150 - 400 K/uL | [facility] | | | Count | | | LABORATORY | | + + + + + + | MPV | 10.8Comment: NO NORMAL | fl | [facility] | | | | RANGE ESTABLISHED | | LABORATORY | | + + + + + + | Diff Type | AUTOMATED | | [facility] | | | | | | LABORATORY | | + + + + + + | % nRBC | 0.0 | 0 /100WBC | [facility] | | | | | | LABORATORY | | + + + + + + | % | 68.30 | % | [facility] | | | Neutrophils | | | LABORATORY | | + + + + + + | IMMATURE | 4.80 | % | [facility] | | | GRANULOCYTE | | | LABORATORY | | + + + + + + | % | 13.80 | % | [facility] | | | Lymphocytes | | | LABORATORY | | + + + + + + | Monocyte % | 11.00 | % | [facility] | | | | | | LABORATORY | | + + + + + + | Eosinophils | 1.80 | % | [facility] | | | % | | | LABORATORY | | + + + + + + | Basophils % | 0.30 | % | [facility] | | | | | | LABORATORY | | + + + + + + | Neutrophils | 4.94 | 1.90 - 7.40 | [facility] | | | , Absolute | | K/uL | LABORATORY | | + + + + + + | IMMATURE | 0.35 (H)Comment: NOTE | 0.00 - 0.07 | [facility] | | | GRANS AB | NEW REFERENCE RANGE | K/uL | LABORATORY | | + + + + + + | Absolute | 1.00 | 1.00 - 3.90 | [facility] | | | Lymphocytes | | K/uL | LABORATORY | | + + + + + + | Absolute | 0.80 | 0.00 - 0.80 | [facility] | | | Monocytes | | K/uL | LABORATORY | | + + + + + + | Eosinophils | 0.13 | 0.00 - 0.50 | [facility] | | | , Absolute | | K/uL | LABORATORY | | + + + + + + | Basophils, | 0.02Comment: Testing | 0.00 - 0.10 | [facility] | | | Absolute | performed at [facility] [place];[address] | K/uL | LABORATORY | | | | [address];[place], [place] | | | | | | [address] | | | | + + + + + + + + | Specimen | + + | Blood | + + + + + + + | Performing | Address | City/State/Zipcode | Phone Number | | Organization | | | | + + + + + | [facility] | [address] | [place] [address] | [phone] | + + + + + Basic Metabolic Panel (07/22/2020 7:06 AM PDT) + + + + + + | Component | Value | Ref Range | Performed | Pathologist | | | | | At | Signature | + + + + + + | Na | 138 | 135 - 145 | [facility] | | | | | mmol/L | LABORATORY | | + + + + + + | K | 3.9 | 3.5 - 4.9 | [facility] | | | | | mmol/L | LABORATORY | | + + + + + + | Cl | 107 | 99 - 109 mmol/L | [facility] | | | | | | LABORATORY | | + + + + + + | CO2 | 26 | 23 - 32 mmol/L | [facility] | | | | | | LABORATORY | | + + + + + + | Anion Gap | 9 | 5 - 20 mmol/L | [facility] | | | | | | LABORATORY | | + + + + + + | Glucose | 106 (H) | 65 - 99 mg/dL | [facility] | | | | | | LABORATORY | | + + + + + + | BUN | 20 | 8 - 25 mg/dL | [facility] | | | | | | LABORATORY | | + + + + + + | Creatinine | 1.35 (H) | 0.70 - 1.30 | [facility] | | | | | mg/dL | LABORATORY | | + + + + + + | BUN/Creatin | 15 | | [facility] | | | ine Ratio | | | LABORATORY | | + + + + + + | Calcium | 7.2 (L) | 8.5 - 10.5 | [facility] | | | | mg/dL | LABORATORY | | + + + + + + | Estimated | 51 (L)Comment: GFR <60: | >60 | [facility] | | | GFR | CHRONIC KIDNEY [...] | | | | | | MDRD [facility] traceable | | | | | | equation.Testing | | | | | | performed at [facility] [place];[address] | | | | | | [facility];[place], [place] | | | | | | [address] | | | | + + + + + + + + | Specimen | + + | Blood | + + + + + + + | Performing | Address | City/State/Zipcode | Phone Number | | Organization | | | | + + + + + | [facility] | [address] | [place] [address] | [phone] | + + + + + Protime INR (07/22/2020 7:06 AM PDT) + + + + + + | Component | Value | Ref Range | Performed | Pathologist | | | | | At | Signature | + + + + + + | INR | 3.9Comment: REFERENCE | | [facility] | | | | RANGE:0.9 - 1.2 [...] | | | | | performed at [facility] [place];[address] | | | | | | [address];[place] | | | | | | [address] | | | | + + + + + + + + | Specimen | + + | Blood | + + + + + + + | Performing | Address | City/State/Zipcode | Phone Number | | Organization | | | | + + + + + | [facility] | [address] | [place] [address] | [phone] | + + + + + POC Glucose (07/21/2020 8:33 PM PDT) + + + + + + | Component | Value | Ref Range | Performed | Pathologist | | | | | At | Signature | + + + + + + | Glucose, | 149 (H)Comment: Testing | 65 - 99 mg/dL | [facility] | | | POC | performed at [facility];[address] | | LABORATORY | | | | [address];[place] | | | | | | [address] | | | | + + + + + + + + | Specimen | + + | | + + + + + + + | Performing | Address | City/State/Zipcode | Phone Number | | Organization | | | | + + + + + | [facility] | [address] | [place] [address] | [phone] | + + + + + POC Glucose (07/21/2020 4:30 PM PDT) + + + + + + | Component | Value | Ref Range | Performed | Pathologist | | | | | At | Signature | + + + + + + | Glucose, | 160 (H)Comment: Testing | 65 - 99 mg/dL | [facility] | | | POC | performed at [facility];[address] | | LABORATORY | | | | [address];[place] | | | | | | [address] | | | | + + + + + + + + | Specimen | + + | | + + + + + + + | Performing | Address | City/State/Zipcode | Phone Number | | Organization | | | | + + + + + | [facility] | [address] | [place] [address] | [phone] | + + + + + POC Glucose (07/21/2020 12:39 PM PDT) + + + + + + | Component | Value | Ref Range | Performed | Pathologist | | | | | At | Signature | + + + + + + | Glucose, | 120 (H)Comment: Testing | 65 - 99 mg/dL | [facility] | | | POC | performed at [facility];[address] | | LABORATORY | | | | [address];[place], [place] | | | | | | [address] | | | | + + + + + + + + | Specimen | + + | | + + + + + + + | Performing | Address | City/State/Zipcode | Phone Number | | Organization | | | | + + + + + | [facility] | [address] | [place] [address] | [phone] | + + + + + [place] [...] | | + +---------+ + + POC Glucose (07/21/2020 7:57 AM PDT) + + + + + + | Component | Value | Ref Range | Performed | Pathologist | | | | | At | Signature | + + + + + + | Glucose, | 79Comment: Testing | 65 - 99 mg/dL | [facility] | | | POC | performed at [facility];[address] | | LABORATORY | | | | [address];[place], [place] | | | | | | [address] | | | | + + + + + + + + | Specimen | + + | | + + + + + + + | Performing | Address | City/State/Zipcode | Phone Number | | Organization | | | | + + + + + | [facility] | [address] | [place] [address] | [phone] | + + + + + Magnesium (07/21/2020 6:40 AM PDT) + + + + + + | Component | Value | Ref Range | Performed | Pathologist | | | | | At | Signature | + + + + + + | Magnesium | 2.3Comment: Testing | 1.7 - 2.4 mg/dL | [facility] | | | | performed at [facility];[address] | | LABORATORY | | | | [address];[place] | | | | | | [address] | | | | + + + + + + + + | Specimen | + + | Blood | + + + + + + + | Performing | Address | City/State/Zipcode | Phone Number | | Organization | | | | + + + + + | [facility] | [address] | [place] [address] | [phone] | + + + + + CBC with Differential (07/21/2020 6:40 AM PDT) + + + + + + | Component | Value | Ref Range | Performed | Pathologist | | | | | At | Signature | + + + + + + | WBC | 7.67 | 3.80 - 11.00 | [facility] | | | | | K/uL | LABORATORY | | + + + + + + | Red Blood | 4.23 | 4.20 - 5.70 | [facility] | | | Cells | | M/uL | LABORATORY | | + + + + + + | Hemoglobin | 12.0 (L) | 13.2 - 17.0 | [facility] | | | | | g/dL | LABORATORY | | + + + + + + | Hematocrit | 36.6 (L) | 39.0 - 50.0 % | [facility] | | | | | | LABORATORY | | + + + + + + | MCV | 86.5 | 80.0 - 100.0 fl | [facility] | | | | | | LABORATORY | | + + + + + + | MCH | 28.4 | 27.0 - 34.0 pg | [facility] | | | | | | LABORATORY | | + + + + + + | MCHC | 32.8 | 32.0 - 35.5 | [facility] | | | | | g/dL | LABORATORY | | + + + + + + | RDW-SD | 53.0 | 37 - 53 fl | [facility] | | | | | | LABORATORY | | + + + + + + | Platelet | 129 (L) | 150 - 400 K/uL | [facility] | | | Count | | | LABORATORY | | + + + + + + | MPV | 11.8Comment: NO NORMAL | fl | [facility] | | | | RANGE ESTABLISHED | | LABORATORY | | + + + + + + | Diff Type | AUTOMATED | | [facility] | | | | | | LABORATORY | | + + + + + + | % nRBC | 0.0 | 0 /100WBC | [facility] | | | | | | LABORATORY | | + + + + + + | % | 66.80 | % | [facility] | | | Neutrophils | | | LABORATORY | | + + + + + + | IMMATURE | 3.30 | % | [facility] | | | GRANULOCYTE | | | LABORATORY | | + + + + + + | % | 15.80 | % | [facility] | | | Lymphocytes | | | LABORATORY | | + + + + + + | Monocyte % | 12.60 | % | [facility] | | | | | | LABORATORY | | + + + + + + | Eosinophils | 1.20 | % | [facility] | | | % | | | LABORATORY | | + + + + + + | Basophils % | 0.30 | % | [facility] | | | | | | LABORATORY | | + + + + + + | Neutrophils | 5.13 | 1.90 - 7.40 | [facility] | | | , Absolute | | K/uL | LABORATORY | | + + + + + + | IMMATURE | 0.25 (H)Comment: NOTE | 0.00 - 0.07 | [facility] | | | GRANS AB | NEW REFERENCE RANGE | K/uL | LABORATORY | | + + + + + + | Absolute | 1.21 | 1.00 - 3.90 | [facility] | | | Lymphocytes | | K/uL | LABORATORY | | + + + + + + | Absolute | 0.97 (H) | 0.00 - 0.80 | [facility] | | | Monocytes | | K/uL | LABORATORY | | + + + + + + | Eosinophils | 0.09 | 0.00 - 0.50 | [facility] | | | , Absolute | | K/uL | LABORATORY | | + + + + + + | Basophils, | 0.02Comment: Testing | 0.00 - 0.10 | [facility] | | | Absolute | performed at [facility] [place] | K/uL | LABORATORY | | | | [facility];[place], [place] | | | | | | [id number] | | | | + + + + + + + + | Specimen | + + | Blood | + + + + + + + | Performing | Address | City/State/Zipcode | Phone Number | | Organization | | | | + + + + + | [facility] | [address] | [place] [address] | [phone] | + + + + + Basic Metabolic Panel (07/21/2020 6:40 AM PDT) + + + + + [...] | 3.9 | 3.5 - 4.9 | [facility] | | | | | mmol/L | LABORATORY | | + + + + + + | Cl | 106 | 99 - 109 mmol/L | [facility] | | | | | | LABORATORY | | + + + + + + | CO2 | 29 | 23 - 32 mmol/L | [facility] | | | | | | LABORATORY | | + + + + + + | Anion Gap | 8 | 5 - 20 mmol/L | [facility] | | | | | | LABORATORY | | + + + + + + | Glucose | 79 | 65 - 99 mg/dL | [facility] | | | | | | LABORATORY | | + + + + + + | BUN | 26 (H) | 8 - 25 mg/dL | [facility] | | | | | | LABORATORY | | + + + + + + | Creatinine | 1.66 (H) | 0.70 - 1.30 | [facility] | | | | | mg/dL | LABORATORY | | + + + + + + | BUN/Creatin | 16 | | [facility] | | | ine Ratio | | | LABORATORY | | + + + + + + | Calcium | 7.5 (L) | 8.5 - 10.5 | [facility] | | | | | mg/dL | LABORATORY | | + + + + + + | Estimated | 40 (L)Comment: GFR <60: | >60 | [facility] | | | GFR | CHRONIC KIDNEY [...] | | | | | | MDRD IDSC traceable | | | | | | equation.Testing | | | | | | performed at [facility] [place] | | | | | | [facility];[place], [place] | | | | | | [id number] | | | | + + + + + + + + | Specimen | + + | Blood | + + + + + + + | Performing | Address | City/State/Zipcode | Phone Number | | Organization | | | | + + + + + | [facility] | [address] | [place] [address] | [phone] | + + + + + Protime INR (07/21/2020 6:40 AM PDT) + + + + + + | Component | Value | Ref Range | Performed | Pathologist | | | | | At | Signature | + + + + + + | INR | 3.2Comment: REFERENCE | | [facility] | | | | RANGE:0.9 - 1.2 [...] | | | | | performed at [facility] [place] | | | | | | [address];[place] | | | | | | [id number] | | | | + + + + + + + + | Specimen | + + | Blood | + + + + + + + | Performing | Address | City/State/Zipcode | Phone Number | | Organization | | | | + + + + + | [facility] | [address] | [place] [address] | [phone] | + + + + + CK Total (07/21/2020 6:40 AM PDT) + + + + + + | Component | Value | Ref Range | Performed | Pathologist | | | | | At | Signature | + + + + + + | CK TOTAL | 1,270 (H)Comment: | 55 - 400 U/L | [facility] | | | | Testing performed at | | LABORATORY | | | | [facility];[address];[place] [address] | | | | + + + + + + + + | Specimen | + + | Blood | + + + + + + + | Performing | Address | City/State/Zipcode | Phone Number | | Organization | | | | + + + + + | [facility] | [address] | [place] [address] | [phone] | + + + + + POC Glucose (07/20/2020 8:48 PM PDT) + + + + + + | Component | Value | Ref Range | Performed | Pathologist | | | | | At | Signature | + + + + + + | Glucose, | 105 (H)Comment: Testing | 65 - 99 mg/dL | [facility] | | | POC | performed at [facility] | | LABORATORY | | | | [address];[place] | | | | | | [address] | | | | + + + + + + + + | Specimen | + + | | + + + + + + + | Performing | Address | City/State/Zipcode | Phone Number | | Organization | | | | + + + + + | [facility] | [address] | [place] [address] | [phone] | + + + + + POC Glucose (07/20/2020 4:59 PM PDT) + + + + + + | Component | Value | Ref Range | Performed | Pathologist | | | | | At | Signature | + + + + + + | Glucose, | 113 (H)Comment: Testing | 65 - 99 mg/dL | [facility] | | | POC | performed at [facility];[address] | | LABORATORY | | | | [address];[place], [place] | | | | | | [address] | | | | + + + + + + + + | Specimen | + + | | + + + + + + + | Performing | Address | City/State/Zipcode | Phone Number | | Organization | | | | + + + + + | [facility] | [address] | [place] [address] | [phone] | + + + + + POC Glucose (07/20/2020 4:25 PM PDT) + + + + + + | Component | Value | Ref Range | Performed | Pathologist | | | | | At | Signature | + + + + + + | Glucose, | 111 (H)Comment: Testing | 65 - 99 mg/dL | [facility] | | | POC | performed at [facility];[address] | | LABORATORY | | | | [address];[place] | | | | | | [address] | | | | + + + + + + + + | Specimen | + + | | + + + + + + + | Performing | Address | City/State/Zipcode | Phone Number | | Organization | | | | + + + + + | [facility] | [address] | [place] [address] | [phone] | + + + + + CK Total (07/20/2020 4:07 PM PDT) + + + + + + | Component | Value | Ref Range | Performed | Pathologist | | | | | At | Signature | + + + + + + | CK TOTAL | 1,558 (H)Comment: | 55 - 400 U/L | [facility] | | | | Testing performed at | | LABORATORY | | | | [facility];[address];[place] [address] | | | | + + + + + + + + | Specimen | + + | Blood | + + + + + + + | Performing | Address | City/State/Zipcode | Phone Number | | Organization | | | | + + + + + | [facility] | [address] | [place] [address] | [phone] | + + + + + POC Glucose (07/20/2020 11:43 AM PDT) + + + + + + | Component | Value | Ref Range | Performed | Pathologist | | | | | At | Signature | + + + + + + | Glucose, | 94Comment: Testing | 65 - 99 mg/dL | [facility] | | | POC | performed at [facility];[address] | | LABORATORY | | | | [address];[place], [place] | | | | | | [address] | | | | + + + + + + + + | Specimen | + + | | + + + + + + + | Performing | Address | City/State/Zipcode | Phone Number | | Organization | | | | + + + + + | [facility] | [address] | [place] [address] | [phone] | + + + + + POC Glucose (07/20/2020 7:54 AM PDT) + + + + + + | Component | Value | Ref Range | Performed | Pathologist | | | | | At | Signature | + + + + + + | Glucose, | 89Comment: Testing | 65 - 99 mg/dL | [facility] | | | POC | performed at [facility];[address] | | LABORATORY | | | | [facility];[place], [place] | | | | | | [address] | | | | + + + + + + + + | Specimen | + + | | + + + + + + + | Performing | Address | City/State/Zipcode | Phone Number | | Organization | | | | + + + + + | [facility] | [address] | [place] [address] | [phone] | + + + + + T4, Free (07/20/2020 5:53 AM PDT) + + + + + + | Component | Value | Ref Range | Performed | Pathologist | | | | | At | Signature | + + + + + + | FT4 | 1.3Comment: Testing | 0.7 - 1.5 ng/dL | [facility] | | | | performed at [facility];[address] | | LABORATORY | | | | [address];[place] | | | | | | [address] | | | | + + + + + + + + | Specimen | + + | | + + + + + + + | Performing | Address | City/State/Zipcode | Phone Number | | Organization | | | | + + + + + | [facility] | [address] | [place] [address] | [phone] | + + + + + TSH, Reflex Free T4 (07/20/2020 5:53 AM PDT) + + + + + + | Component | Value | Ref Range | Performed | Pathologist | | | | | At | Signature | + + + + + + | TSH | 0.372 (L) | 0.450 - 5.100 | [facility] | | | | | uIU/mL | LABORATORY | | + + + + + + + + | Specimen | + + | Blood | + + + + + + + | Performing | Address | City/State/Zipcode | Phone Number | | Organization | | | | + + + + + | [facility] | [address] | [place] [address] | [phone] | + + + + + Magnesium (07/20/2020 5:53 AM PDT) + + + + + + | Component | Value | Ref Range | Performed | Pathologist | | | | | At | Signature | + + + + + + | Magnesium | 2.3Comment: Testing | 1.7 - 2.4 mg/dL | [facility] | | | | performed at [facility];[address] | | LABORATORY | | | | [address];[place] | | | | | | [address] | | | | + + + + + + + + | Specimen | + + | Blood | + + + + + + + | Performing | Address | City/State/Zipcode | Phone Number | | Organization | | | | + + + + + | [facility] | [address] | [place] [address] | [phone] | + + + + + CBC with Differential (07/20/2020 5:53 AM PDT) + + + + + + | Component | Value | Ref Range | Performed | Pathologist | | | | | At | Signature | + + + + + + | WBC | 9.63 | 3.80 - 11.00 | [facility] | | | | | K/uL | LABORATORY | | + + + + + + | Red Blood | 4.34 | 4.20 - 5.70 | [facility] | | | Cells | | M/uL | LABORATORY | | + + + + + + | Hemoglobin | 12.4 (L) | 13.2 - 17.0 | [facility] | | | | | g/dL | LABORATORY | | + + + + + + | Hematocrit | 36.8 (L) | 39.0 - 50.0 % | [facility] | | | | | | LABORATORY | | + + + + + + | MCV | 84.8 | 80.0 - 100.0 fl | [facility] | | | | | | LABORATORY | | + + + + + + | MCH | 28.6 | 27.0 - 34.0 pg | [facility] | | | | | | LABORATORY | | + + + + + + | MCHC | 33.7 | 32.0 - 35.5 | [facility] | | | | | g/dL | LABORATORY | | + + + + + + | RDW-SD | 51.0 | 37 - 53 fl | [facility] | | | | | | LABORATORY | | + + + + + + | Platelet | 131 (L) | 150 - 400 K/uL | [facility] | | | Count | | | LABORATORY | | + + + + + + | MPV | 11.9Comment: NO NORMAL | fl | [facility] | | | | RANGE ESTABLISHED | | LABORATORY | | + + + + + + | Diff Type | AUTOMATED | | [facility] | | | | | | LABORATORY | | + + + + + + | % nRBC | 0.0 | 0 /100WBC | [facility] | | | | | | LABORATORY | | + + + + + + | % | 68.90 | % | [facility] | | | Neutrophils | | | LABORATORY | | + + + + + + | IMMATURE | 1.90 | % | [facility] | | | GRANULOCYTE | | | LABORATORY | | + + + + + + | % | 16.90 | % | [facility] | | | Lymphocytes | | | LABORATORY | | + + + + + + | Monocyte % | 11.40 | % | [facility] | | | | | | LABORATORY | | + + + + + + | Eosinophils | 0.60 | % | [facility] | | | % | | | LABORATORY | | + + + + + + | Basophils % | 0.30 | % | [facility] | | | | | | LABORATORY | | + + + + + + | Neutrophils | 6.63 | 1.90 - 7.40 | [facility] | | | , Absolute | | K/uL | LABORATORY | | + + + + + + | IMMATURE | 0.18 (H)Comment: NOTE | 0.00 - 0.07 | [facility] | | | GRANS AB | NEW REFERENCE RANGE | K/uL | LABORATORY | | + + + + + + | Absolute | 1.63 | 1.00 - 3.90 | [facility] | | | Lymphocytes | | K/uL | LABORATORY | | + + + + + + | Absolute | 1.10 (H) | 0.00 - 0.80 | [facility] | | | Monocytes | | K/uL | LABORATORY | | + + + + + + | Eosinophils | 0.06 | 0.00 - 0.50 | [facility] | | | , Absolute | | K/uL | LABORATORY | | + + + + + + | Basophils, | 0.03Comment: Testing | 0.00 - 0.10 | [facility] | | | Absolute | performed at [facility], [address] | [address] | LABORATORY | | | | [address], | | | | | | [place] [address] | | | | + + + + + + + + | Specimen | + + | Blood | + + + + + + + | Performing | Address | City/State/Zipcode | Phone Number | | Organization | | | | + + + + + | [facility] | [address] | [place] [address] | [phone] | + + + + + Basic Metabolic Panel (07/20/2020 5:53 AM PDT) + + + + + + | Component | Value | Ref Range | Performed | Pathologist | | | | | At | Signature | + + + + + + | Na | 137 | 135 - 145 | [facility] | | | | | mmol/L | LABORATORY | | + + + + + + | K | 3.9 | 3.5 - 4.9 | [facility] | | | | | mmol/L | LABORATORY | | + + + + + + | Cl | 102 | 99 - 109 mmol/L | [facility] | | | | | | LABORATORY | | + + + + + + | CO2 | 29 | 23 - 32 mmol/L | [facility] | | | | | | LABORATORY | | + + + + + + | Anion Gap | 10 | 5 - 20 mmol/L | [facility] | | | | | | LABORATORY | | + + + + + + | Glucose | 88 | 65 - 99 mg/dL | [facility] | | | | | | LABORATORY | | + + + + + + | BUN | 28 (H) | 8 - 25 mg/dL | [facility] | | | | | | LABORATORY | | + + + + + + | Creatinine | 2.08 (H) | 0.70 - 1.30 | [facility] | | | | | mg/dL | LABORATORY | | + + + + + + | BUN/Creatin | 13 | | [facility] | | | ine Ratio | | | LABORATORY | | + + + + + + | Calcium | 7.9 (L) | 8.5 - 10.5 | [facility] | | | | | mg/dL | LABORATORY | | + + + + + + | Estimated | 31 (L)Comment: GFR <60: | >60 | [facility] [...] | | | | | performed at [facility] | | | | | | [facility];[place], [place] | | | | | | [address] | | | | + + + + + + + + | Specimen | + + | Blood | + + + + + + + | Performing | Address | City/State/Zipcode | Phone Number | | Organization | | | | + + + + + | [facility] | [address] | [place] [address] | [phone] | + + + + + Noemíime INR (07/20/2020 5:53 AM PDT) + + + + + + | Component | Value | Ref Range | Performed | Pathologist | | | | | At | Signature | + + + + + + | INR | 2.7Comment: REFERENCE | | [facility] | | | | RANGE:0.9 - 1.2 [...] | | | | | performed at [facility];[address] | | | | | | [address];[place], [place] | | | | | | [address] | | | | + + + + + + + + | Specimen | + + | Blood | + + + + + + + | Performing | Address | City/State/Zipcode | Phone Number | | Organization | | | | + + + + + | [facility] | [address] | [place] [address] | [phone] | + + + + + CK Total (07/20/2020 5:53 AM PDT) + + + + + + | Component | Value | Ref Range | Performed | Pathologist | | | | | At | Signature | + + + + + + | CK TOTAL | 1,876 (H)Comment: | 55 - 400 U/L | [facility] | | | | Testing performed at | | LABORATORY | | | | [facility];[address] | | [address];[place] [address] | | | | + + + + + + + + | Specimen | + + | Blood | + + + + + + + | Performing | Address | City/State/Zipcode | Phone Number | | Organization | | | | + + + + + | [facility] | [address] | [place] [address] | [phone] | + + + + + Lipid Panel (07/20/2020 5:53 AM [...] | | | Calculated | performed at [facility], [address] | | LABORATORY | | | | [address], | | | | | | [place] [address] | | | | + + + + + + + + | Specimen | + + | Blood | + + + + + + + | Performing | Address | City/State/Zipcode | Phone Number | | Organization | | | | + + + + + | [facility] | [address] | [place] [address] | [phone] | + + + + + POC Glucose (07/19/2020 7:50 PM PDT) + + + + + + | Component | Value | Ref Range | Performed | Pathologist | | | | | At | Signature | + + + + + + | Glucose, | 110 (H)Comment: Testing | 65 - 99 mg/dL | [facility] | | | POC | performed at [facility];[address] | | LABORATORY | | | | [address];[place], [place] | | | | | | [address] | | | | + + + + + + + + | Specimen | + + | | + + + + + + + | Performing | Address | City/State/Zipcode | Phone Number | | Organization | | | | + + + + + | [facility] | [address] | [place] [address] | [phone] | + + + + + POC Glucose (07/19/2020 5:22 PM PDT) + + + + + + | Component | Value | Ref Range | Performed | Pathologist | | | | | At | Signature | + + + + + + | Glucose, | 115 (H)Comment: Testing | 65 - 99 mg/dL | [facility] | | | POC | performed at [facility];[address] | | LABORATORY | | | | [address];[place], [place] | | | | | | [address] | | | | + + + + + + + + | Specimen | + + | | + + + + + + + | Performing | Address | City/State/Zipcode | Phone Number | | Organization | | | | + + + + + | [facility] | [address] | [place] [address] | [phone] | + + + + + ECG [...] | | | | | by MANUEL ROTHMAN MD | | | | | | [...] | LABORATORY | | | | [facility];[address] [facility] | | | | | | [address];[place] [address] | | | | + + + + + + + + | Specimen | + + | | + + + + + + + | Performing | Address | City/State/Zipcode | Phone Number | | Organization | | | | + + + + + | [facility] | [address] | [place] [address] | [phone] | + + + + + Protime INR (07/19/2020 4:03 PM PDT) + + + + + + | Component | Value | Ref Range | Performed | Pathologist | | | | | At | Signature | + + + + + + | INR | 2.6Comment: REFERENCE | | [facility] | | | | RANGE:0.9 - 1.2 [...] | | | | | performed at [facility];[address] | | | | | | [address];[place] | | | | | | [address] | | | | + + + + + + + + | Specimen | + + | Blood | + + + + + + + | Performing | Address | City/State/Zipcode | Phone Number | | Organization | | | | + + + + + | [facility] | [address] | [place] [address] | [phone] | + + + + + CK Total (07/19/2020 4:03 PM PDT) + + + + + + | Component | Value | Ref Range | Performed | Pathologist | | | | | At | Signature | + + + + + + | CK TOTAL | 2,359 (H)Comment: | 55 - 400 U/L | [facility] | | | | Testing performed at | | LABORATORY | | | | [facility];[address];[place] [address] | | | | + + + + + + + + | Specimen | + + | Blood | + + + + + + + | Performing | Address | City/State/Zipcode | Phone Number | | Organization | | | | + + + + + | [facility] | [address] | [place] [address] | [phone] | + + + + + POC Glucose (07/19/2020 1:11 PM PDT) + + + + + + | Component | Value | Ref Range | Performed | Pathologist | | | | | At | Signature | + + + + + + | Glucose, | 102 (H)Comment: Testing | 65 - 99 mg/dL | [facility] | | | POC | performed at [facility];[address] | | LABORATORY | | | [address];[place] | | | | | | [address] | | | | + + + + + + + + | Specimen | + + | | + + + + + + + | Performing | Address | City/State/Zipcode | Phone Number | | Organization | | | | + + + + + | [facility] | [address] | [place] [address] | [phone] | + + + + + Procalcitonin (07/19/2020 4:23 AM PDT) + + + + [...] | | | | | | at [facility];[address] [place] [address] | | | | | | Blvd;[place] [address] | | | | + + + + + + + + | Specimen | + + | Blood | + + + + + + + | Performing | Address | City/State/Zipcode | Phone Number | | Organization | | | | + + + + + | [facility] | [address] | [place] [address] | [phone] | + + + + + Basic Metabolic Panel (07/19/2020 4:23 AM PDT) + + + + + + | Component | Value | Ref Range | Performed | Pathologist | | | | | At | Signature | + + + + + + | Na | 142 | 135 - 145 | [facility] | | | | | mmol/L | LABORATORY | | + + + + + + | K | 3.8 | 3.5 - 4.9 | [facility] | | | | | mmol/L | LABORATORY | | + + + + + + | Cl | 104 | 99 - 109 mmol/L | [facility] | | | | | | LABORATORY | | + + + + + + | CO2 | 28 | 23 - 32 mmol/L | [facility] | | | | | | LABORATORY | | + + + + + + | Anion Gap | 14 | 5 - 20 mmol/L | [facility] | | | | | | LABORATORY | | + + + + + + | Glucose | 80 | 65 - 99 mg/dL | [facility] | | | | | | LABORATORY | | + + + + + + | BUN | 26 (H) | 8 - 25 mg/dL | [facility] | | | | | | LABORATORY | | + + + + + + | Creatinine | 1.81 (H) | 0.70 - 1.30 | [facility] | | | | | mg/dL | LABORATORY | | + + + + + + | BUN/Creatin | 14 | | [facility] | | | ine Ratio | | | LABORATORY | | + + + + + + | Calcium | 6.6 (L) | 8.5 - 10.5 | [facility] | | | | | mg/dL | LABORATORY | | + + + + + + | Estimated | 36 (L)Comment: GFR <60: | >60 | [facility] | | | GFR | CHRONIC KIDNEY [...] | | | | | performed at [facility];[address] | | | | | | [facility];[place], [place] | | | | | | [address] | | | | + + + + + + + + | Specimen | + + | Blood | + + + + + + + | Performing | Address | City/State/Zipcode | Phone Number | | Organization | | | | + + + + + | [facility] | [address] | [place] [address] | [phone] | + + + + + Phosphorus (07/19/2020 4:23 AM PDT) + + + + + + | Component | Value | Ref Range | Performed | Pathologist | | | | | At | Signature | + + + + + + | Phosphorus | 2.4Comment: Testing | 2.3 - 4.8 mg/dL | [facility] | | | | performed at [facility];[address] | | LABORATORY | | | | [address];[place], [place] | | | | | | [address] | | | | + + + + + + + + | Specimen | + + | Blood | + + + + + + + | Performing | Address | City/State/Zipcode | Phone Number | | Organization | | | | + + + + + | [facility] | [address] | [place] [address] | [phone] | + + + + + Magnesium (07/19/2020 4:23 AM PDT) + + + + + + | Component | Value | Ref Range | Performed | Pathologist | | | | | At | Signature | + + + + + + | Magnesium | 2.1Comment: Testing | 1.7 - 2.4 mg/dL | [facility] | | | | performed at [facility];[address] | | LABORATORY | | | | [facility];[place], [place] | | | | | | [address] | | | | + + + + + + + + | Specimen | + + | Blood | + + + + + + + | Performing | Address | City/State/Zipcode | Phone Number | | Organization | | | | + + + + + | [facility] | [address] | [place] [address] | [phone] | + + + + + CBC with Differential (07/19/2020 4:23 AM PDT) + + + + + + | Component | Value | Ref Range | Performed | Pathologist | | | | | At | Signature | + + + + + + | WBC | 9.62 | 3.80 - 11.00 | [facility] | | | | | K/uL | LABORATORY | | + + + + + + | Red Blood | 4.26 | 4.20 - 5.70 | [facility] | | | Cells | | M/uL | LABORATORY | | + + + + + + | Hemoglobin | 12.2 (L) | 13.2 - 17.0 | [facility] | | | | | g/dL | LABORATORY | | + + + + + + | Hematocrit | 37.1 (L) | 39.0 - 50.0 % | [facility] | | | | | | LABORATORY | | + + + + + + | MCV | 87.1 | 80.0 - 100.0 fl | [facility] | | | | | | LABORATORY | | + + + + + + | MCH | 28.6 | 27.0 - 34.0 pg | [facility] | | | | | | LABORATORY | | + + + + + + | MCHC | 32.9 | 32.0 - 35.5 | [facility] | | | | | g/dL | LABORATORY | | + + + + + + | RDW-SD | 52.4 | 37 - 53 fl | [facility] | | | | | | LABORATORY | | + + + + + + | Platelet | 120 (L) | 150 - 400 K/uL | [facility] | | | Count | | | LABORATORY | | + + + + + + | MPV | 11.4Comment: NO NORMAL | fl | [facility] | | | | RANGE ESTABLISHED | | LABORATORY | | + + + + + + | Diff Type | AUTOMATED | | [facility] | | | | | | LABORATORY | | + + + + + + | % nRBC | 0.0 | 0 /100WBC | [facility] | | | | | | LABORATORY | | + + + + + + | % | 73.50 | % | [facility] | | | Neutrophils | | | LABORATORY | | + + + + + + | IMMATURE | 1.90 | % | [facility] | | | GRANULOCYTE | | | LABORATORY | | + + + + + + | % | 13.10 | % | [facility] | | | Lymphocytes | | | LABORATORY | | + + + + + + | Monocyte % | 11.10 | % | [facility] | | | | | | LABORATORY | | + + + + + + | Eosinophils | 0.10 | % | [facility] | | | % | | | LABORATORY | | + + + + + + | Basophils % | 0.30 | % | [facility] | | | | | | LABORATORY | | + + + + + + | Neutrophils | 7.07 | 1.90 - 7.40 | [facility] | | | , Absolute | | K/uL | LABORATORY | | + + + + + + | IMMATURE | 0.18 (H)Comment: NOTE | 0.00 - 0.07 | [facility] | | | GRANS AB | NEW REFERENCE RANGE | K/uL | LABORATORY | | + + + + + + | Absolute | 1.26 | 1.00 - 3.90 | [facility] | | | Lymphocytes | | K/uL | LABORATORY | | + + + + + + | Absolute | 1.07 (H) | 0.00 - 0.80 | [facility] | | | Monocytes | | K/uL | LABORATORY | | + + + + + + | Eosinophils | 0.01 | 0.00 - 0.50 | [facility] | | | , Absolute | | K/uL | LABORATORY | | + + + + + + | Basophils, | 0.03Comment: Testing | 0.00 - 0.10 | [facility] | | | Absolute | performed at [facility] [place] | K/uL | LABORATORY | | | | [address];[place] | | | | | | [id number] | | | | + + + + + + + + | Specimen | + + | Blood | + + + + + + + | Performing | Address | City/State/Zipcode | Phone Number | | Organization | | | | + + + + + | [facility] | [address] | [place] [address] | [phone] | + + + + + CK-MB (07/19/2020 4:22 AM PDT) + + + + + [...] at | | | | | | [address] | | | | | | [place] [address] | | | | + + + + + + + + | Specimen | + + | | + + + + + + + | Performing | Address | City/State/Zipcode | Phone Number | | Organization | | | | + + + + + | [facility] | [address] | [place] [address] | [phone] | + + + + + CK Total (07/19/2020 4:22 AM PDT) + + + + + + | Component | Value | Ref Range | Performed | Pathologist | | | | | At | Signature | + + + + + + | CK TOTAL | 2,174 (H)Comment: | 55 - 400 U/L | [facility] | | | | Testing performed at | | LABORATORY | | | | [facility] [place];[place] [address] | | | | + + + + + + + + | Specimen | + + | Blood | + + + + + + + | Performing | Address | City/State/Zipcode | Phone Number | | Organization | | | | + + + + + | [facility] | [address] | [place] [address] | [phone] | + + + + + Troponin I (07/19/2020 4:22 AM PDT) + + + + + [...] | | | | CALLED TO [employer] | | | | | | GITA PAREKH 0524 BY | | | | | | Claim Maps BACK RESULTS | | | | | | VERIFIEDTesting | | | | | | performed at [facility] [place] | | | | | | [address];[place] | | | | | | [id number] | | | | + + + + + + + + | Specimen | + + | Blood | + + + + + + + | Performing | Address | City/State/Zipcode | Phone Number | | Organization | | | | + + + + + | [facility] | [address] | [place] [address] | [phone] | + + + + + POC Glucose (07/18/2020 10:09 PM PDT) + + + + + + | Component | Value | Ref Range | Performed | Pathologist | | | | | At | Signature | + + + + + + | Glucose, | 108 (H)Comment: Testing | 65 - 99 mg/dL | [facility] | | | POC | performed at [facility] [place] | | LABORATORY | | | | [address];[place] | | | | | | [address] | | | | + + + + + + + + | Specimen | + + | | + + + + + + + | Performing | Address | City/State/Zipcode | Phone Number | | Organization | | | | + + + + + | [facility] | [address] | [place] [address] | [phone] | + + + + + POC RAPID STREP A (07/18/2020 8:29 PM PDT) + + + + + + | Component | Value | Ref Range | Performed | Pathologist | | | | | At | Signature | + + + + + + | Group A | NEGATIVEComment: Testing | NEG | [facility] | | | Strep, DNA | performed [...] | | | | | performed at [facility] [place] | | [address];[place], [place] | | | | | | [address] | | | | + + + + + + + + | Specimen | + + | | + + + + + + + | Performing | Address | City/State/Zipcode | Phone Number | | Organization | | | | + + + + + | [facility] | [address] | [place] [address] | [phone] | + + + + + RAPID STREP SWAB COLLECTION (07/18/2020 8:06 PM PDT) + + + + + + | Component | Value | Ref Range | Performed | Pathologist | | | | | At | Signature | + + + + + + | Collection | THROATComment: Testing | | [facility] | | | | performed at [facility] [place] | | LABORATORY | | | | [address];[place] | | | | | | [address] | | | | + + + + + + + + | Specimen | + + | | + + + + + + + | Performing | Address | City/State/Zipcode | Phone Number | | Organization | | | | + + + + + | [facility] | [address] | [place] [address] | [phone] | + + + + + XR [...] Procedure Note | + + | Rocky, [id number] - 07/18/2020 7:35 PM PDT | | [...] Procedure Note | + + | Rocky, [id number] - 07/18/2020 7:37 PM PDT | | [...] | | | | | performed at [facility] [place];[address];[place], [place] | | | | | | [address] | | | | + + + + + + + + | Specimen | + + | Blood | + + + + + + + | Performing | Address | City/State/Zipcode | Phone Number | | Organization | | | | + + + + + | [facility] | [address] | [place] [address] | [phone] | + + + + + Culture, Blood (07/18/2020 6:43 PM PDT) + + + + + + | Component | Value | Ref Range | Performed | Pathologist | | | | | At | Signature | + + + + + + | Special | L.HAND | | [facility] | | | Requests | | | LABORATORY | | + + + + + + | Special | Testing performed at | | [facility] | | | Requests | [facility] [place];[address] | | LABORATORY | | | | [address];[place] [address] | | | | + + + + + + | Culture | NO GROWTH 6 DAYS | | [facility] | | | | | | LABORATORY | | + + + + + + | Culture | Testing performed at | | [facility] | | | | [facility], [address] [facility] | | LABORATORY | | | | [address] [place], [place] | | | | | | [id number]: Testing | | | | | | performed at [facility], [address] | | | | | | [address] [place], [place] | | | | | | [address] | | | | + + + + + + + + | Specimen | + + | Blood - Peripheral | | blood specimen | | (specimen) | + + + + + + + | Performing | Address | City/State/Zipcode | Phone Number | | Organization | | | | + + + + + | [facility] | [address] | [place] [address] | [phone] | + + + + + Culture, Blood (07/18/2020 5:38 PM PDT) + + + + + + | Component | Value | Ref Range | Performed | Pathologist | | | | | At | Signature | + + + + + + | Special | LAC | | [facility] | | | Requests | | | LABORATORY | | + + + + + + | Special | Testing performed at | | [facility] | | | Requests | [facility];[address] | | LABORATORY | | | | [address];[place] [address] | | | | + + + + + + | Culture | NO GROWTH 6 DAYS | | [facility] | | | | | | LABORATORY | | + + + + + + | Culture | Testing performed at | | [facility] | | | | [facility], [address] [facility] [facility] | | LABORATORY | | | | [address], [place], [place] | | | | | | [id number]: Testing | | | | | | performed at [facility], [address] | | | | | | [address], [place], [place] | | | | | | [address] | | | | + + + + + + + + | Specimen | + + | Blood - Peripheral | | blood specimen | | (specimen) | + + + + + + + | Performing | Address | City/State/Zipcode | Phone Number | | Organization | | | | + + + + + | [facility] | [address] | [place] [address] | [phone] | + + + + + CK Total (07/18/2020 5:37 PM PDT) + + + + + + | Component | Value | Ref Range | Performed | Pathologist | | | | | At | Signature | + + + + + + | CK TOTAL | 2,937 (H)Comment: | 55 - 400 U/L | [facility] | | | | Testing performed at | | LABORATORY | | | | [facility] [place];[address];[place] [address] | | | | + + + + + + + + | Specimen | + + | Blood | + + + + + + + | Performing | Address | City/State/Zipcode | Phone Number | | Organization | | | | + + + + + | [facility] | [address] | [place] [address] | [phone] | + + + + + Procalcitonin (07/18/2020 5:37 PM PDT) + + + + + + | Component | Value | Ref Range | Performed | Pathologist | | | | | At | Signature | + + + + + + | PROCALCITON | 2.73 (H)Comment: | <0.5 ng/mL | [facility] | [...] | | | | | | at [facility];[address] [facility] | | | | | | [address];[place] [address] | | | | + + + + + + + + | Specimen | + + | | + + + + + + + | Performing | Address | City/State/Zipcode | Phone Number | | Organization | | | | + + + + + | [facility] | [address] | [place] [address] | [phone] | + + + + + PTT (07/18/2020 5:37 PM PDT) + + + + + + | Component | Value | Ref Range | Performed | Pathologist | | | | | At | Signature | + + + + + + | PTT | 54 (H)Comment: Testing | 23 - 32 seconds | [facility] | | | | performed at [facility];[address] | | LABORATORY | | | | [facility];[place], [place] | | | | | | [address] | | | | + + + + + + + + | Specimen | + + | | + + + + + + + | Performing | Address | City/State/Zipcode | Phone Number | | Organization | | | | + + + + + | [facility] | [address] | [place] [address] | [phone] | + + + + + Protime INR (07/18/2020 5:37 PM PDT) + + + + + + | Component | Value | Ref Range | Performed | Pathologist | | | | | At | Signature | + + + + + + | INR | 2.6Comment: REFERENCE | | [facility] | | | | RANGE:0.9 - 1.2 [...] | | | | | performed at [facility];[address] | | | | | | [address];[place], [place] | | | | | | [address] | | | | + + + + + + + + | Specimen | + + | Blood | + + + + + + + | Performing | Address | City/State/Zipcode | Phone Number | | Organization | | | | + + + + + | [facility] | [address] | [place] [address] | [phone] | + + + + + Phosphorus (07/18/2020 5:37 PM PDT) + + + + + + | Component | Value | Ref Range | Performed | Pathologist | | | | | At | Signature | + + + + + + | Phosphorus | 2.5Comment: Testing | 2.3 - 4.8 mg/dL | [facility] | | | | performed at [facility] [place];[facility] | | LABORATORY | | | | [address];[place], [place] | | | | | | [address] | | | | + + + + + + + + | Specimen | + + | Blood | + + + + + + + | Performing | Address | City/State/Zipcode | Phone Number | | Organization | | | | + + + + + | [facility] | [address] | [place] [address] | [phone] | + + + + + Magnesium (07/18/2020 5:37 PM PDT) + + + + + + | Component | Value | Ref Range | Performed | Pathologist | | | | | At | Signature | + + + + + + | Magnesium | 1.9Comment: Testing | 1.7 - 2.4 mg/dL | [facility] | | | | performed at [facility];[address] | | LABORATORY | | | | [address];[place] | | | | | | [address] | | | | + + + + + + + + | Specimen | + + | Blood | + + + + + + + | Performing | Address | City/State/Zipcode | Phone Number | | Organization | | | | + + + + + | [facility] | [address] | [place] [address] | [phone] | + + + + + CBC with Differential (07/18/2020 5:37 PM PDT) + + + + + + | Component | Value | Ref Range | Performed | Pathologist | | | | | At | Signature | + + + + + + | WBC | 11.17 (H) | 3.80 - 11.00 | [facility] | | | | | K/uL | LABORATORY | | + + + + + + | Red Blood | 4.58 | 4.20 - 5.70 | [facility] | | | Cells | | M/uL | LABORATORY | | + + + + + + | Hemoglobin | 13.4 | 13.2 - 17.0 | [facility] | | | | | g/dL | LABORATORY | | + + + + + + | Hematocrit | 39.7 | 39.0 - 50.0 % | [facility] | | | | | | LABORATORY | | + + + + + + | MCV | 86.7 | 80.0 - 100.0 fl | [facility] | | | | | | LABORATORY | | + + + + + + | MCH | 29.3 | 27.0 - 34.0 pg | [facility] | | | | | | LABORATORY | | + + + + + + | MCHC | 33.8 | 32.0 - 35.5 | [facility] | | | | | g/dL | LABORATORY | | + + + + + + | RDW-SD | 53.1 (H) | 37 - 53 fl | [facility] | | | | | | LABORATORY | | + + + + + + | Platelet | 146 (L) | 150 - 400 K/uL | [facility] | | | Count | | | LABORATORY | | + + + + + + | MPV | 11.1Comment: NO NORMAL | fl | [facility] | | | | RANGE ESTABLISHED | | LABORATORY | | + + + + + + | Diff Type | AUTOMATED | | [facility] | | | | | | LABORATORY | | + + + + + + | % nRBC | 0.0 | 0 /100WBC | [facility] | | | | | | LABORATORY | | + + + + + + | % | 75.60 | % | [facility] | | | Neutrophils | | | LABORATORY | | + + + + + + | IMMATURE | 2.10 | % | [facility] | | | GRANULOCYTE | | | LABORATORY | | + + + + + + | % | 11.50 | % | [facility] | | | Lymphocytes | | | LABORATORY | | + + + + + + | Monocyte % | 10.50 | % | [facility] | | | | | | LABORATORY | | + + + + + + | Eosinophils | 0.10 | % | [facility] | | | % | | | LABORATORY | | + + + + + + | Basophils % | 0.20 | % | [facility] | | | | | | LABORATORY | | + + + + + + | Neutrophils | 8.44 (H) | 1.90 - 7.40 | [facility] | | | , Absolute | | K/uL | LABORATORY | | + + + + + + | IMMATURE | 0.24 (H)Comment: NOTE | 0.00 - 0.07 | [facility] | | | GRANS AB | NEW REFERENCE RANGE | K/uL | LABORATORY | | + + + + + + | Absolute | 1.29 | 1.00 - 3.90 | [facility] | | | Lymphocytes | | K/uL | LABORATORY | | + + + + + + | Absolute | 1.17 (H) | 0.00 - 0.80 | [facility] | | | Monocytes | | K/uL | LABORATORY | | + + + + + + | Eosinophils | 0.01 | 0.00 - 0.50 | [facility] | | | , Absolute | | K/uL | LABORATORY | | + + + + + + | Basophils, | 0.02Comment: Testing | 0.00 - 0.10 | [facility] | | | Absolute | performed at [facility];[address] | K/uL | LABORATORY | | | | [facility];[place], [place] | | | | | | [address] | | | | + + + + + + + + | Specimen | + + | Blood | + + + + + + + | Performing | Address | City/State/Zipcode | Phone Number | | Organization | | | | + + + + + | [facility] | [address] | [place] [address] | [phone] | + + + + + Comprehensive Metabolic Panel (07/18/2020 5:37 PM PDT) + + + + + + | Component | Value | Ref Range | Performed | Pathologist | | | | | At | Signature | + + + + + + | Na | 133 (L) | 135 - 145 | [facility] | | | | | mmol/L | LABORATORY | | + + + + + + | K | 4.2 | 3.5 - 4.9 | [facility] | | | | | mmol/L | LABORATORY | | + + + + + + | Cl | 97 (L) | 99 - 109 mmol/L | [facility] | | | | | | LABORATORY | | + + + + + + | CO2 | 33 (H) | 23 - 32 mmol/L | [facility] | | | | | | LABORATORY | | + + + + + + | Anion Gap | 7 | 5 - 20 mmol/L | [facility] | | | | | | LABORATORY | | + + + + + + | Glucose | 132 (H) | 65 - 99 mg/dL | [facility] | | | | | | LABORATORY | | + + + + + + | BUN | 28 (H) | 8 - 25 mg/dL | [facility] | | | | | | LABORATORY | | + + + + + + | Creatinine | 1.95 (H) | 0.70 - 1.30 | [facility] | | | | | mg/dL | LABORATORY | | + + + + + + | BUN/Creatin | 14 | | [facility] | | | ine Ratio | | | LABORATORY | | + + + + + + | Calcium | 7.6 (L) | 8.5 - 10.5 | [facility] | | | | | mg/dL | LABORATORY | | + + + + + + | Protein, | 6.3 | 6.3 - 8.2 g/dL | [facility] | | | Total | | | LABORATORY | | + + + + + + | Albumin | 3.2 (L) | 3.3 - 4.8 g/dL | [facility] | | | | | | LABORATORY | | + + + + + + | Globulin | 3.1 | 1.3 - 4.9 g/dL | [facility] | | | | | | LABORATORY | | + + + + + + | A/G Ratio | 1.0 | 1.0 - 2.4 | [facility] | | | | | | LABORATORY | | + + + + + + | BILIRUBIN, | 0.9 | 0.1 - 1.5 mg/dL | [facility] | | | TOTAL | | | LABORATORY | | + + + + + + | ALK PHOS | 37 | 35 - 115 U/L | [facility] | | | | | | LABORATORY | | + + + + + + | AST | 140 (H) | 10 - 45 U/L | [facility] | | | | | | LABORATORY | | + + + + + + | ALT | 41 | 10 - 65 U/L | [facility] | | | | | | LABORATORY | | + + + + + + | Estimated | 33 (L)Comment: GFR <60: | >60 | [facility] [...] | | | | | performed at [facility] [place] [place] | | | | | | [facility];[place], [place] | | | | | | [address] | | | | + + + + + + + + | Specimen | + + | Blood | + + + + + + + | Performing | Address | City/State/Zipcode | Phone Number | | Organization | | | | + + + + + | [facility] | [address] | [place] [address] | [phone] | + + + + + CK-MB (07/18/2020 5:37 PM PDT) + + + + + + | Component | Value | Ref Range | Performed | Pathologist | | | | | At | Signature | + + + + + + | CK-MB | 3.0 | 0.5 - 3.6 ng/mL | [facility] | | | | | | LABORATORY | | + + + + + + | CK Index | UNABLE TO | | [facility] | | | | CALCULATEComment: | | LABORATORY | | | | Testing performed at | | | | | | [facility] [place];[address] | | | | | | [address];[place] [address] | | | | + + + + + + + + | Specimen | + + | Blood | + + + + + + + | Performing | Address | City/State/Zipcode | Phone Number | | Organization | | | | + + + + + | [facility] | [address] | [place] [address] | [phone] | + + + + + B Type Natriuretic Peptide (07/18/2020 5:37 PM PDT) + + + + + + | Component | Value | Ref Range | Performed | Pathologist | | | | | At | Signature | + + + + + + | BNP | 772.50 (H)Comment: | 0 - 100 pg/mL | [facility] | | | | Testing performed at | | LABORATORY | | | | [facility];[address];[place] [address] | | | | + + + + + + + + | Specimen | + + | Blood | + + + + + + + | Performing | Address | City/State/Zipcode | Phone Number | | Organization | | | | + + + + + | [facility] | [address] | [place] [address] | [phone] | + + + + + Troponin I (07/18/2020 5:37 PM PDT) + + + + + + | Component | Value | Ref Range | Performed | Pathologist | | | | | At | Signature | + + + + + + | Troponin I | 1.265 ()Comment: | 0.00 - 0.04 | [facility] [...] | | | | | | CALLED NURSING UNITREAD | | | | | | BACK RESULTS | | | | | | VERIFIEDCALLED TO ELSIE | | | | | | S. IN 10RP AT 1828 BY | | | | | | LGJTesting performed at | | | | | | [facility];[address] [facility] | | | | | | [address];[place] [address] | | | | + + + + + + + + | Specimen | + + | Blood | + + + + + + + | Performing | Address | City/State/Zipcode | Phone Number | | Organization | | | | + + + + + | [facility] | [address] | [place] [address] | [phone] | + + + + + Urinalysis [...] - 1.030 | [facility] | | | [place], | | | LABORATORY | | | [...] LABORATORY | | | Cells, | [facility];[address] | | Urine | [address];[place] [address] | | | | + + + [...] | + + + + + | [facility] | [address] | [place] [address] | [phone] | + + + + + Coronavirus (COVID-19) NAAT (07/18/2020 5:10 PM PDT) + + + + + + | Component | Value | Ref Range | Performed | Pathologist | | | | | At | Signature | + + + + + + | SARS-CoV-2, | POSITIVE (A)Comment: | NEG | [facility] | | | NAAT | This test [...] | | | | | performed at [facility] | | | | | | [facility];[place], [place] | | | | | | [address] | | | | + + + + + + + + | Specimen | + + | Tissue - Entire | | nasopharynx (body | | structure) | + + + + + + + | Performing | Address | City/State/Zipcode | Phone Number | | Organization | | | | + + + + + | [facility] | [address] | [place] [address] | [phone] | + + + + + POC Glucose (07/18/2020 5:03 PM PDT) + + + + + + | Component | Value | Ref Range | Performed | Pathologist | | | | | At | Signature | + + + + + + | Glucose, | 150 (H)Comment: Testing | 65 - 99 mg/dL | [facility] | | | POC | performed at [facility];[address] | | LABORATORY | | | | [address];[place], [place] | | | | | | [address] | | | | + + + + + + + + | Specimen | + + | | + + + + + + + | Performing | Address | City/State/Zipcode | Phone Number | | Organization | | | | + + + + + | [facility] | [address] | [place] [address] | [phone] | + + + + + documented in this encounter Visit Diagnoses + + | Diagnosis | + + | Shock (HCC) - Primary Shock, unspecified | + + | Coronary artery disease involving chickaloon coronary artery of chickaloon heart without | | angina pectoris | + + | Cardiac pacemaker in situ - MEDTRONIC Cardiac pacemaker in situ | + + | Chronic renal insufficiency, stage 4 (severe) (HCC) | + + | COVID-19 | + + | Heart block Conduction disorder, unspecified | + + | Hx of CABG Postsurgical aortocoronary bypass status | + + | Hyperlipidemia, unspecified hyperlipidemia type | + + | Hypotension, unspecified hypotension type | + + | Ischemic cardiomyopathy Other specified forms of chronic ischemic heart disease | + + | PSVT (paroxysmal supraventricular tachycardia) (HCC) Paroxysmal supraventricular | | tachycardia | + + | Nonsustained ventricular tachycardia (HCC) Paroxysmal ventricular tachycardia | + + | 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 | + + | Ischemic dilated cardiomyopathy (HCC) Other specified forms of chronic ischemic heart | | disease | + + | Chronic systolic heart failure (HCC) Chronic systolic heart failure | + + | SSS (sick sinus syndrome) (HCC) Sinoatrial node dysfunction | + + | Acute on chronic systolic heart failure (HCC) Acute on chronic systolic heart failure | + + | COVID-19 with multiple comorbidities | + + | CAD (coronary artery disease) Coronary atherosclerosis of unspecified type of vessel, | | chickaloon or graft | + + | Diabetes mellitus, type II - ORAL Control Type II or unspecified type diabetes | | mellitus without mention of complication, not stated as uncontrolled | + + | Hypertension Unspecified essential hypertension | + + | GERD (gastroesophageal reflux disease) Esophageal reflux | + + | Atrial fibrillation (HCC) Atrial fibrillation | + + | Pacemaker Cardiac pacemaker in situ | + + | 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) | + + | Systolic heart failure (HCC) Unspecified systolic heart failure | + + documented in this encounter Administered Medications + +--------+ +--------+------+------+ | Medication Order | MAR | Action | Dose | Rate | Site | | | Action | Date | | | | + +--------+ +--------+------+------+ | acetaminophen (TYLENOL) tablet | Given | 07/19/20 | 650 mg | | | | 650 mg 650 mg, Oral, EVERY 4 | | 20 3:52 | | | | | HOURS PRN, Pain, Starting Tue | | PM PDT | | | | | 07/18/20 at 2002 | | | | | | + +--------+ +--------+------+------+ +-------+ +--------+---+---+ | Given | 07/18/20 | 650 mg | | | | | 20 9:08 | | | | | | PM PDT | | | | +-------+ +--------+---+---+ +---+---+ | | | +---+---+ + +-------+ +--------+---+---+ | aluminum & magnesium | Given | 07/19/20 | 15 mLs | | | | hydroxide-simethicone (MAALOX | | 20 3:54 | | | | | PLUS REGULAR STRENGTH) 200-200-20 | | PM PDT | | | | | mg/5 mL 5 mL, diphenhydrAMINE | | | | | | | (BENADRYL) 12.5 mg/5 mL 5 mL, | | | | | | | lidocaine (XYLOCAINE) 2% 5 mL | | | | | | | oral suspension 15 mL, Swish & | | | | | | | Spit, EVERY 4 HOURS PRN, Sore | | | | | | | Throat, Starting 07/18/20 at | | | | | | | 1910 | | | | | | + +-------+ +--------+---+---+ +---+---+ | | | +---+---+ + +-------+ +--------+---+---+ | aluminum & magnesium | Given | 07/25/20 | 15 mLs | | | | hydroxide-simethicone (MAALOX | | 20 7:56 | | | | | PLUS REGULAR STRENGTH) 200-200-20 | | AM PDT | | | | | mg/5 mL 5 mL, diphenhydrAMINE | | | | | | | (BENADRYL) 12.5 mg/5 mL 5 mL, | | | | | | | lidocaine (XYLOCAINE) 2% 5 mL | | | | | | | oral suspension 15 mL, Swish & | | | | | | | Spit, EVERY 4 HOURS, First dose | | | | | | | (after last modification) on Sun | | | | | | | 07/23/20 at 1200 | | | | | | + +-------+ +--------+---+---+ +-------+ +--------+---+---+ | Given | 07/24/20 | 15 mLs | | | | | 20 4:42 | | | | | | PM PDT | | | | +-------+ +--------+---+---+ | Given | 07/24/20 | 15 mLs | | | | | 20 8:10 | | | | | | AM PDT | | | | +-------+ +--------+---+---+ +---+---+ | | | +---+---+ + +-------+ +-------+---+---+ | aspirin chewable tablet 81 mg | Given | 07/25/20 | 81 mg | | | | 81 mg, Oral, DAILY, First dose on | | 20 7:58 | | | | | 07/19/20 at 1700 | | AM PDT | | | | + +-------+ +-------+---+---+ +-------+ +-------+---+---+ | Given | 07/24/20 | 81 mg | | | | | 20 8:09 | | | | | | AM PDT | | | | +-------+ +-------+---+---+ | Given | 07/23/20 | 81 mg | | | | | 20 8:41 | | | | | | AM PDT | | | | +-------+ +-------+---+---+ +---+---+ | | | +---+---+ + +-------+ +-------+---+---+ | atorvaSTATin (LIPITOR) tablet | Given | 07/24/20 | 20 mg | | | | 20 mg 20 mg, Oral, NIGHTLY, | | 20 8:40 | | | | | First dose on Fri07/18/20 at 2100 | | PM PDT | | | | + +-------+ +-------+---+---+ +-------+ +-------+---+---+ | Given | 07/23/20 | 20 mg | | | | | 20 8:10 | | | | | | PM PDT | | | | +-------+ +-------+---+---+ | Given | 07/22/20 | 20 mg | | | | | 20 8:44 | | | | | | PM PDT | | | | +-------+ +-------+---+---+ +---+---+ | | | +---+---+ + +-------+ +--------+---+---+ | barium (VARIBAR PUDDING) 40% | Given | 07/21/20 | 75 mLs | | | | contrast paste 75 mL 75 mL, | | 20 12:30 | | | | | Oral, ONCE, 07/21/20 at 1230, | | PM PDT | | | | | For 1 dose, Radiology | | | | | | + +-------+ +--------+---+---+ +---+---+ | | | +---+---+ + +-------+ +--------+---+---+ | barium (VARIBAR THIN LIQUID) | Given | 07/21/20 | 75 mLs | | | | 40% contrast suspension 75 mL 75 | | 20 12:30 | | | | | mL, Oral, ONCE, 07/21/20 at | | PM PDT | | | | | 1230, For 1 dose, Chris landa., | | | | | | | Radiology | | | | | | + +-------+ +--------+---+---+ + +---+ | | | + +---+ | bisacodyl (DULCOLAX) | | | suppository 10 mg 10 mg, Rectal, | | | DAILY PRN, Constipation, | | | Starting 07/18/20 at 1556, If | | | no BM in prior 48 hours and | | | docusate and Miralax ineffective, | | | | | + +---+ | | | + +---+ + +-------+ +--------+---+---+ | cephalexin (KEFLEX) capsule 500 | Given | 07/25/20 | 500 mg | | | | mg 500 mg, Oral, 2 TIMES DAILY, | | 20 7:58 | | | | | First dose on Fri07/19/20 at | | AM PDT | | | | | 2100, Indications: chronic | | | | | | | suppression for MSSA joint | | | | | | | infection | | | | | | + +-------+ +--------+---+---+ +-------+ +--------+---+---+ | Given | 07/24/20 | 500 mg | | | | | 20 8:40 | | | | | | PM PDT | | | | +-------+ +--------+---+---+ | Given | 07/24/20 | 500 mg | | | | | 20 8:09 | | | | | | AM PDT | | | | +-------+ +--------+---+---+ +---+---+ | | | +---+---+ + +-------+ +--------+---+---+ | cholecalciferol (VITAMIN D-3) | Given | 07/25/20 | 2,000 | | | | tablet 2,000 Units 2,000 Units, | | 20 7:57 | Units | | | | Oral, DAILY, First dose on Fri | | AM PDT | | | | | 07/18/20 at 1730 | | | | | | + +-------+ +--------+---+---+ +-------+ +--------+---+---+ | Given | 07/24/20 | 2,000 | | | | | 20 8:09 | Units | | | | | AM PDT | | | | +-------+ +--------+---+---+ | Given | 07/23/20 | 2,000 | | | | | 20 8:41 | Units | | | | | AM PDT | | | | +-------+ +--------+---+---+ + +---+ | | | + +---+ | dextrose 10% (D10W) infusion | | | at 50 mL/hr, Intravenous, | | | CONTINUOUS PRN, hypoglycemia, | | | Starting 07/18/20 at 1955, | | | Start infusion if unable to | | | maintain blood glucose greater | | | than 70 mg/dL after two rounds of | | | hypoglycemia treatment. Recheck | | | blood glucose 30 minutes after | | | starting D10W then at least | | | hourly and PRN until it is | | | discontinued. Call provider to | | | discuss parameters for D10W | | | discontinuation., | | + +---+ | | | + +---+ | dextrose 50% injection 12.5-25 | | | g 12.5-25 g, Intravenous, PRN, | | | Low Blood Sugar, Starting Tue | | | 07/18/20 at 6, For blood | | | glucose 50-69 mg/dl - give 12.5 g | | | For blood glucose less than 50 | | | mg/dl - give 25 g, | | + +---+ | | | + +---+ + +-------+ +--------+---+---+ | docusate sodium (COLACE) | Given | 07/25/20 | 100 mg | | | | capsule 100 mg 100 mg, Oral, 2 | | 20 7:58 | | | | | TIMES DAILY, First dose on Fri | | AM PDT | | | | | 07/18/20 at 2100, Hold for loose | | | | | | | stools, | | | | | | + +-------+ +--------+---+---+ +-------+ +--------+---+---+ | Given | 07/24/20 | 100 mg | | | | | 20 8:09 | | | | | | AM PDT | | | | +-------+ +--------+---+---+ | Given | 07/21/20 | 100 mg | | | | | 20 8:40 | | | | | | PM PDT | | | | +-------+ +--------+---+---+ +---+---+ | | | +---+---+ + +-------+ +-------+---+---+ | famotidine (PEPCID) tablet 20 | Given | 07/18/20 | 20 mg | | | | mg 20 mg, Oral, 2 TIMES DAILY, | | 20 9:08 | | | | | First dose on Fri07/18/20 at 2100 | | PM PDT | | | | + +-------+ +-------+---+---+ +---+---+ | | | +---+---+ + +-------+ +-------+---+---+ | famotidine (PEPCID) tablet 20 | Given | 07/24/20 | 20 mg | | | | mg 20 mg, Oral, EVERY 48 HOURS, | | 20 8:40 | | | | | First dose (after last | | PM PDT | | | | | modification) on Fri07/20/20 at | | | | | | | 2100, Renal dose adjustment per | | | | | | | P&T, | | | | | | + +-------+ +-------+---+---+ +-------+ +-------+---+---+ | Given | 07/22/20 | 20 mg | | | | | 20 8:44 | | | | | | PM PDT | | | | +-------+ +-------+---+---+ | Given | 07/20/20 | 20 mg | | | | | 20 8:47 | | | | | | PM PDT | | | | +-------+ +-------+---+---+ +---+---+ | | | +---+---+ + +-------+ +---------+---+ + | insulin lispro (humaLOG, | Given | 07/24/20 | 1 Units | | Arm-Righ | | ADMELOG) injection (vial) 0-6 | | 20 4:44 | | | t Upper | | Units Correction Scale: Low Dose | | PM PDT | | | | | (SENSITIVE): Total Daily Dose | | | | | | | less than 40 units, Day/NPO Blood | | | | | | | Glucose (BG) below 150: (units): | | | | | | | 0, Day/NPO BG 150-200: (units): | | | | | | | 1, Day/NPO BG 201-250: (units): | | | | | | | 2, Day/NPO BG 251-300: (units): | | | | | | | 3, Day/NPO BG 301-350: (units): | | | | | | | 4, Day/NPO BG 351-400: (units): | | | | | | | 5, Day/NPO BG above 400: (units): | | | | | | | 6, Night BG below 150: (units): | | | | | | | 0, Night BG 150-200: (units): 0, | | | | | | | Night BG 201-250: (units): 1, | | | | | | | Night BG 251-300: (units): 2, | | | | | | | Night BG 301-350: (units): 3, | | | | | | | Night BG 351-400: (units): 4, | | | | | | | Night BG above 400: (units): 5, | | | | | | | BG above 400 additional | | | | | | | instructions: GIVE DOSE AND CALL | | | | | | | PROVIDER, Subcutaneous, 4 TIMES | | | | | | | DAILY BEFORE MEALS & NIGHTLY, | | | | | | | First dose on Fri07/18/20 at | | | | | | | 2100, Use DAY/NPO DOSE for doses | | | | | | | scheduled: AC, NPO, Daytime | | | | | | | [id number] Use NIGHT DOSE for | | | | | | | doses scheduled: HS, | | | | | | | Nighttime 5618-8351 If the BG is | | | | | | | not checked before the patient | | | | | | | starts eating, do not give | | | | | | | correction insulin. Only for use | | | | | | | with U-100 insulin syringe., | | | | | | + +-------+ +---------+---+ + +-------+ +---------+---+ + | Given | 07/23/20 | 1 Units | | Arm-Righ | | | 20 5:09 | | | t Upper | | | PM PDT | | | | +-------+ +---------+---+ + | Given | 07/23/20 | 1 Units | | Arm-Righ | | | 20 12:13 | | | t Upper | | | PM PDT | | | | +-------+ +---------+---+ + +---+---+ | | | +---+---+ + +---------+ +-----+ +---+ | magnesium sulfate 2 g/50 mL | New Bag | 07/18/20 | 2 g | 25 mL/hr | | | IVPB 2 g 2 g, Intravenous, | | 20 7:49 | | | | | Administer over 120 Minutes, PRN, | | PM PDT | | | | | Per protocol, Starting Tue | | | | | | | 07/18/20 at 1556, ICU Use Only | | | | | | | Protocol NOT recommended if Scr | | | | | | | > 1.8, dialysis patients or CrCl | | | | | | | < 50 mL/min Magnesium = 1-1.9 | | | | | | | mg/dL Give magnesium sulfate 2 | | | | | | | g IV x1 * Check magnesium 2 | | | | | | | hours after infusion is completed | | | | | | | If magnesium still < 1.9 | | | | | | | mg/dL,replace as indicated per | | | | | | | protocol Maximum recommended | | | | | | | infusion rate = 1 gram/hour., | | | | | | + +---------+ +-----+ +---+ +---+---+ | | | +---+---+ + +-------+ +-------+---+---+ | metoprolol succinate | Given | 07/21/20 | 25 mg | | | | (TOPROL-XL) ER tablet 25 mg 25 | | 20 8:09 | | | | | mg, Oral, DAILY, First dose on | | AM PDT | | | | | Zandra 07/20/20 at 1300, Tablet may | | | | | | | be cut where scored but do not | | | | | | | crush., | | | | | | + +-------+ +-------+---+---+ +-------+ +-------+---+---+ | Given | 07/20/20 | 25 mg | | | | | 20 2:17 | | | | | | PM PDT | | | | +-------+ +-------+---+---+ +---+---+ | | | +---+---+ + +-------+ +-------+---+---+ | metoprolol succinate | Given | 07/25/20 | 50 mg | | | | (TOPROL-XL) ER tablet 50 mg 50 | | 20 7:59 | | | | | mg, Oral, DAILY, First dose on | | AM PDT | | | | | 07/21/20 at 0900, Tablet may | | | | | | | be cut where scored but do not | | | | | | | crush., | | | | | | + +-------+ +-------+---+---+ +-------+ +-------+---+---+ | Given | 07/24/20 | 50 mg | | | | | 20 8:10 | | | | | | AM PDT | | | | +-------+ +-------+---+---+ | Given | 07/23/20 | 50 mg | | | | | 20 8:41 | | | | | | AM PDT | | | | +-------+ +-------+---+---+ +---+---+ | | | +---+---+ + +-------+ + +---+---+ | nystatin (MYCOSTATIN) 100,000 | Given | 07/23/20 | 500,000 | | | | units/mL suspension 500,000 Units | | 20 1:25 | Units | | | | 500,000 Units, Swish & Swallow, | | AM PDT | | | | | 4 TIMES DAILY, First dose on Tue | | | | | | | 07/18/20 at 2345, Chris camacho, | | | | | | | Indications: Oropharyngeal | | | | | | | Candidiasis | | | | | | + +-------+ + +---+---+ +-------+ + +---+---+ | Given | 07/22/20 | 500,000 | | | | | 20 2:44 | Units | | | | | PM PDT | | | | +-------+ + +---+---+ | Given | 07/21/20 | 500,000 | | | | | 20 8:46 | Units | | | | | PM PDT | | | | +-------+ + +---+---+ + +---+ | | | + +---+ | ondansetron (ZOFRAN) injection | | | 4 mg 4 mg, Intravenous, EVERY 6 | | | HOURS PRN, Nausea, Starting Tue | | | 07/18/20 at 1556, First line | | | agent, | | + +---+ | | | + +---+ + +---------+ +---------+-------+---+ | piperacillin-tazobactam (ZOSYN) | New Bag | 07/18/20 | 3.375 g | 200 | | | 3.375 g in sodium chloride 0.9% | | 20 9:12 | | mL/hr | | | 100 mL IVPB 3.375 g, | | PM PDT | | | | | Intravenous, Administer over 0.5 | | | | | | | Hours, ONCE, 07/18/20 at 2100, | | | | | | | For 1 dose, Extended-Infusion | | | | | | | Zosyn Protocol: infuse bolus over | | | | | | | 30 minutes, followed in 4 hours | | | | | | | by maintenance dosing. Activate | | | | | | | system and mix before use. | | | | | | | INCOMPATIBLE with Lactated | | | | | | | Ringers (LR)., Indications: SKIN | | | | | | | AND SOFT TISSUE ABSCESS | | | | | | + +---------+ +---------+-------+---+ +---+---+ | | | +---+---+ + +---------+ +---------+ +---+ | piperacillin-tazobactam (ZOSYN) | New Bag | 07/19/20 | 3.375 g | 25 mL/hr | | | 3.375 g in sodium chloride 0.9% | | 20 8:30 | | | | | 100 mL IVPB 3.375 g, | | AM PDT | | | | | Intravenous, Administer over 4 | | | | | | | Hours, EVERY 8 HOURS INTERVAL, | | | | | | | First dose on Fri07/19/20 at | | | | | | | 0030, Extended-Infusion Zosyn | | | | | | | Protocol: infuse over 4 hours | | | | | | | when maintenance dose has a | | | | | | | frequency of Q8H (or Q12H for | | | | | | | renal dose adjustment). Activate | | | | | | | system and mix before use. | | | | | | | INCOMPATIBLE with Lactated | | | | | | | Ringers (LR)., Indications: | | | | | | | SEPSIS OF UNKNOWN ETIOLOGY | | | | | | + +---------+ +---------+ +---+ +---------+ +---------+ +---+ | New Bag | 07/19/20 | 3.375 g | 25 mL/hr | | | | 20 12:46 | | | | | | AM PDT | | | | +---------+ +---------+ +---+ + +---+ | | | + +---+ | polyethylene glycol (MIRALAX) | | | powder 17 g 17 g, Oral, DAILY | | | PRN, Constipation, Starting Tue | | | 07/18/20 at 1556, If docusate | | | ineffective, give Miralax daily | | | until BM, then PRN (start if no | | | BM on day 2). Mix with 8 oz. | | | water., | | + +---+ | | | + +---+ + +-------+ +--------+---+---+ | potassium chloride (KLOR-CON) | Given | 07/22/20 | 20 mEq | | | | ER tablet 20-40 mEq 20-40 mEq, | | 20 8:14 | | | | | Oral, DAILY PRN, Per protocol, | | AM PDT | | | | | Starting 07/19/20 at 1657, | | | | | | | NON-ICU Protocol Replace | | | | | | | potassium once per day based on | | | | | | | morning potassium level. Use | | | | | | | scale below to determine dose. If | | | | | | | further replacement is required | | | | | | | after this morning dose of | | | | | | | potassium, notify provider | | | | | | | Protocol NOT recommended if Scr > | | | | | | | 1.8, dialysis patients or CrCl < | | | | | | | 50 mL/min [K+] =3.6 - 4 mEql/L | | | | | | | Give 20 mEq KCl PO x 1 dose | | | | | | | [K+] 3.0 - 3.5 mEql/L Give 40 | | | | | | | mEq KCl PO x 1 dose [K+] < 3.0 | | | | | | | mEq/L Notify provider * | | | | | | | Recheck K+ 4 hours after | | | | | | | replacement is done. Give either | | | | | | | tablet, liquid, or IV but never | | | | | | | more than one form. If repeat K | | | | | | | is still < 3.5, contact provider | | | | | | | for further instruction. May take | | | | | | | with food to decrease GI upset., | | | | | | | | | | | | | + +-------+ +--------+---+---+ +-------+ +--------+---+---+ | Given | 07/21/20 | 20 mEq | | | | | 20 10:18 | | | | | | AM PDT | | | | +-------+ +--------+---+---+ +---+---+ | | | +---+---+ + +-------+ +--------+---+---+ | potassium chloride (KLOR-CON) | Given | 07/19/20 | 40 mEq | | | | ER tablet 40-60 mEq 40-60 mEq, | | 20 6:17 | | | | | Oral, PRN, Per protocol, Starting | | AM PDT | | | | | 07/18/20 at 1557, ICU Use | | | | | | | Only Protocol NOT recommended | | | | | | | if Scr > 1.8, dialysis patients | | | | | | | or CrCl < 50 mL/min [K+] =3.6 - | | | | | | | 4 mEql/L Give 40 mEq KCl PO x 1 | | | | | | | dose [K+] =3 - 3.5 mEql/L | | | | | | | Give 60 mEq KCl PO x 1 dose [K+] | | | | | | | < 3.0 mEql/L Give 40 mEq KCl | | | | | | | Q2H PO x 2 doses for total of | | | | | | | 80 meq. * Obtain K+ level 4 | | | | | | | hours after replacement is | | | | | | | done. If K+ still < 3.6 mEq/L, | | | | | | | repeat replacement as | | | | | | | indicated per protocol. Give | | | | | | | either tablet, liquid, or IV but | | | | | | | never more than one form. May | | | | | | | take with food to decrease GI | | | | | | | upset., | | | | | | + +-------+ +--------+---+---+ +---+---+ | | | +---+---+ + +-------+ + +---+---+ | sacubitril-valsartan (ENTRESTO) | Given | 07/25/20 | 1 tablet | | | | 24-26 mg per tablet 1 tablet 1 | | 20 8:09 | | | | | tablet, Oral, 2 TIMES DAILY, | | AM PDT | | | | | First dose on Fri07/24/20 at 0900 | | | | | | + +-------+ + +---+---+ +-------+ + +---+---+ | Given | 07/24/20 | 1 tablet | | | | | 20 8:40 | | | | | | PM PDT | | | | +-------+ + +---+---+ | Given | 07/24/20 | 1 tablet | | | | | 20 10:20 | | | | | | AM PDT | | | | +-------+ + +---+---+ +---+---+ | | | +---+---+ + +---------+ +---+ +---+ | sodium chloride 0.9% (NS) | New Bag | 07/21/20 | | 75 mL/hr | | | infusion at 75 mL/hr, | | 20 9:21 | | | | | Intravenous, CONTINUOUS, Starting | | PM PDT | | | | | Zandra 07/20/20 at 1230 | | | | | | + +---------+ +---+ +---+ +---------+ +---+ +---+ | New Bag | 07/21/20 | | 75 mL/hr | | | | 20 8:09 | | | | | | AM PDT | | | | +---------+ +---+ +---+ | New Bag | 07/20/20 | | 75 mL/hr | | | | 20 2:26 | | | | | | PM PDT | | | | +---------+ +---+ +---+ +---+---+ | | | +---+---+ + +-------+ +--------+---+---+ | warfarin (COUMADIN) tablet 2.5 | Given | 07/19/20 | 2.5 mg | | | | mg 2.5 mg, Oral, Once - | | 20 5:57 | | | | | Warfarin, First dose on Fri | | PM PDT | | | | | 07/19/20 at 1800, For 1 dose, | | | | | | | Reproductive Risk: Use | | | | | | | appropriate handling precautions. | | | | | | | Drug education required., | | | | | | + +-------+ +--------+---+---+ +---+---+ | | | +---+---+ + +-------+ +--------+---+---+ | warfarin (COUMADIN) tablet 2.5 | Given | 07/20/20 | 2.5 mg | | | | mg 2.5 mg, Oral, Daily - | | 20 7:10 | | | | | Warfarin, First dose on Fri | | PM PDT | | | | | 07/20/20 at 1800, Reproductive | | | | | | | Risk: Use appropriate handling | | | | | | | precautions. Drug education | | | | | | | required., | | | | | | + +-------+ +--------+---+---+ +---+---+ | | | +---+---+ documented in this encounter Additional Health Concerns + + + + + | Infection | Onset Date | Last Indicated | Resolved Time | + + + + + | Rule out COVID-19 | 07/18/2020 | 07/18/2020 | 07/18/2020 6:40 PM | | | | | PDT | + + + + + | COVID-19 | 07/18/2020 | 07/18/2020 | | + + + + + documented as of this encounter
--- OUTSIDE RECORDS SUMMARY | ~2020-07-26 | XMS | Encounter Summary ---
Demographics + + + | Address | [address] | | | [place] [address] | + + + | Home Phone | | + + + | Preferred Language | Unknown | + + + | Marital Status | | + + + | Quaker Affiliation | 1077 | + + + | Race | White | + + + | Ethnic Group | Not or | + + + Author + + + | Author | [facility] | | | and [place] | + + + | Organization | [facility] | | | and [...] Team Providers + +------+ + | Care Crane Operator Cab Name | Role | Phone | + +------+ + PCP | Unavailable | + +------+ + Encounter Details +--------+ + + + + | Date | Type | Department | Care Team | Description | +--------+ + + + + | 09/29/ | [facility] | [facility] | | | [facility] - | Encounter | [facility] | [address] [place] | | | | | CARDIAC TELEMETRY | [address] [place], [place] | | | 10/04/ | | [address] | [address] | | | 2000 | | [place] | | | | | | [address] | | | | | | [phone] | | | +--------+ + + + [...]
--- OUTSIDE RECORDS SUMMARY | ~2020-07-26 | XMS | Encounter Summary ---
Demographics + + + | Address | [address] | | | [place] [address] | + + + | Home Phone [...] Team Providers + +------+ + | Care Bit Sander Name | Role | Phone | + [...] | | | | | | | [facility] [place] | | | | | | | [address] | | | | | | | Phone: | | | | | | | [phone] | | | | | | | Fax: | | | | | | | [phone] | | + + + + + [...] | | | | | involving | [facility] [place] | [address] [address] | | | | | [place] | [address] | [place] | | | | | coronary | Phone: | [phone] Phone: | | | | | artery of | [phone] | [phone] | | | | | [place] heart | Fax: | Fax: | | | | | without | [phone] | [phone] | | | | | angina | [...] + + | 07/18/ | Hospital | [facility] | Stephane, | Acute on chronic | | 2019 - | Encounter | [facility] | MD Corinne | systolic heart | | | | CARE FLOOR [address] | [address] | failure (HCC) | | 07/25/ | | [address] | [place] [address] | (Primary Dx); | | 2020 | | [place], [place] | [phone] | Coronary artery | | | | [address] | | disease involving | | | | [phone] | Gordon Bragg MD | [place] coronary | | | | | [address] | artery of [place] | | | | | [place] [address] | heart without angina | | | | | [phone] | pectoris; Cardiac | | | | | | pacemaker in situ; | | | | | Wyatt Yang MD | Chronic renal | | | | | [address] | insufficiency, stage | | | | | [place] [address] | 4 (severe) (HCC); | | | | | [phone] | COVID-19; Heart | | | | [...] | | | | | | tachycardia) ([facility]); | | | | | | Nonsustained | | | | | | ventricular | | | | | | tachycardia ([facility]); | | | | | | Coronary [...] | | | | | | failure ([facility]); SSS | | | | | | (sick sinus | | | | | | syndrome) ([facility]); | | | | | | COVID-19 [...] Yang MD - 07/25/2020 9:03 AM PDT [facility] Service: Hospitalist Discharge Summary Date of Admission: [...] post dual-chamber pacemaker/ICD who pres ented to [facility] with complaints of not feeling well was found to be COVID- 19 positive. He had a fall at home but no syncope. He was very hypoglycemic blood sugar in the 40s. Patient was hypotensive requiring Levophed. Patient transferred to [facility] and wa s admitted to the ICU. [...] hours. No results for input(s): PHART, PO2ART, FLL4VHH, Q5LYNRVY, BEART in the last 168 hours. Recent [...] Code Discharge Procedure Orders Ambulatory referral to [facility] Cardiology Referral Priority: Routine Referral Type: Evaluate [...] Sebas Vickers MD [address] [place] [address] In 2 weeks [facility] [address] [place] [id number] Call Referral sent on 07/25. Please call to set up services for Physical Therapy and Nursing care . Gilberto Estrada MD [address] [facility] [id number] In 1 week Discharge Medications [...] Ischemic cardiomyopathy,Sever e sigmoid diverticulosiswho presents to [facility] after an episode of fall.Patient was trying [...] was found in the morning after [facility] he presented to the emergency roomon 07/16.He was initially found to be hypoglycem ic with a blood sugar of 40 hence he received D50. initially when patient was admitted to the hospital CK was elevated [id number].Hence kassy ent also received fluid resuscitation for rhabdomyolysis and was kept on maintenance fluid a t 125 cc/h. On 07/17,his CK worsened [id number].His troponin was only 0.014.Also he c ontinued to have soft blood pressures.Hence he was transferred to ICU in [facility] . On 07/18,he was also started on Nmdstltu5illtoh hypertension.Seems patient was al so continued on [...] 50% and appears normal Other pertinent labson 07/17,[id number],INR 3.3,creatinine 1.89,hemoglobin 13.5,W BC 11.7,ESR 78. On [...] to 30%, new pressor requirement,[facility]. On [facility] to [facility] [...] vomiting or dizziness or lightheadedness. Scheduled Medications: gfqjtsywfzJRCIO-npbowd-wwkbuuhpa mouthwash (ADS admixture) 15 mL Swish & [...] Ischemic cardiomyopathy,Sever e sigmoid diverticulosiswho presents to [facility] after an episode of fall. Principal Problem: [...] Communication thread: I called Beth platt # [phone] on July 20 at 1208 and answered [...] this chart may have been created with InSequent voice recognition software. Occasi onal wrong-word or sound-alike substitutions may have occurred due to the inherent olson itations of voice recognition software. Please read the chart carefully and recognize, using context, where these substitutions have occurred. ehr, Sebas Lopez MD - 0 07/24/2020 8:02 AM PDT [facility] Service: Cardiology Progress Note Date of Admission: 07/18/2020 BRIEF CLINICAL HISTORY: 80 y.o. male with prior history of coronary artery disease/[place] wit h prior stenting/2 vessel CABG (remote [...] and recent COVID19 diagnosis (with pneumonia per [facility] dicine office note 07/11/20). He presented to [facility] 07/16/20 after fall vs sync ope [...] abnormalities. He was then transfer red to [facility] for a higher level of care. Telemetry strips from [facility] showed frequent PVC s and nonsustained VT. Upon presentation to [facility], his troponin was elevated, 1.265 (now trending [...] Past Medical History: Diagnosis Date Ankylosing spondylitis ([facility]) Arthritis Beta Blockers - Daily Use 07/22/2017 CAD (coronary artery disease) severe multivessel CAD Cardiac pacemaker in situ - [employer] 10/24/2016 [employer] - Placed Sep 2016 for sick sinus syndrome Chronic kidney disease Chronic renal insufficiency, stage 4 (severe) ([facility]) 02/10/2019 Chronic sinusitis Coronary artery disease involving autologous artery coronary bypass graft, angina prese nce unspecified 10/31/2015 SVG to the RCA occluded Deep vein thrombosis (DVT) (HCC) Diabetes mellitus type II Diverticulosis Dysphagia GERD (gastroesophageal reflux disease) Hyperlipidemia Hypertension Ischemic cardiomyopathy Joint pain care home current use of anticoagulant - COUMADIN 07/22/2017 [...] - TOTAL; Surgeon: Drew Hurst MD; Location: [facility] MAIN OR; Service : Orthopedics; Laterality: Right; alisha component.br OTHER SURGICAL HISTORY CATARACT EXTRACTION OTHER SURGICAL HISTORY PHRENIC NERVE PACEMAKER IMPLANTATION PACEMAKER INSERTION Medtronic SINUS SURGERY TONSILLECTOMY AND ADENOIDECTOMY UPPER GASTROINTESTINAL ENDOSCOPY N/A 07/31/2017 Procedure: EGD with Dilation; Surgeon: Willow Colin MD; Location: [facility] MEDICAL PROCEDUR E UNIT UPPER GASTROINTESTINAL ENDOSCOPY N/A 02/10/2019 Procedure: EGD WITH DILITATION; Surgeon: Willow Colin MD; Location: [facility] MEDICAL PROCED URE UNIT VASECTOMY Allergies Allergen [...] mg by mouth Daily . Scheduled Medications wbzdrblpdwCQCHM-jobgnu-wiggmoklw mouthwash (ADS admixture) 15 mL Swish & [...] normal, marked bilateral pretibial hyperpigmentati on with ilns-cdedb-uhwx desquamation. NEUROLOGIC: Awake, alert and oriented x [...] 2.6 3.0 Free T4 1.3 [place] (07/18/20 ([facility]): Mildly dilated left ventricular cavity. Left [...] pectoris COVID-19 Cardiac pacemaker in situ - [employer] ASSESSMENT & PLAN 1. Rhabdomyolysis, s/p fall [...] cardiac catheterization October 2015 showed both the [place] RCA and its vein graft were occluded. There were lsnk-bf-lotgq collaterals to the RPDA and RPLA (occlusi [...] to RV scarring fr om his inferior [place]. Wall motion abnormalities in the RCA territory [...] Duane Mas AGE/SEX: 80 y.o. male ROOM: [address] [place] [address] : 1940 PCP: Erin Forrester MD ADMIT DATE: 07/18/2020 TODAY'S DATE: 07/23/2020 Hospital Day/Hospital Course: LOS: 5 days Per ICU 80 y.o.malewith significant past medical history of DM2, CKD 4, CAD, 2V CABG 2000, SV t o LAD and SV to PDA, SSS s/p medtronic dual chamber PPM/ICD, Ischemic cardiomyopathy,Sever e sigmoid diverticulosiswho presents to [facility] after an episode of fall.Patient was trying [...] admitted to the hospital CK was elevated [id number].Hence kassy ent also received fluid resuscitation for rhabdomyolysis and was kept on maintenance fluid a t 125 cc/h. On 07/17,his CK worsened [id number].His troponin was only 0.014.Also he c ontinued to have soft blood pressures.Hence he was transferred to ICU in [facility] . On 07/18,he was also started on Rhuhlypt0xgxaif hypertension.Seems patient was al so continued on [...] 50% and appears normal Other pertinent labson 07/17,[id number],INR 3.3,creatinine 1.89,hemoglobin 13.5,W BC 11.7,ESR 78. On [...] to 30%, new pressor requirement,[facility] On [facility] to the [...] Continuous Infusions dextrose 10% PRN Medications acetaminophen, kqljiftdkwCEIJC-nwedvd-amjkmoufl mouthwash (ADS admixture), bisacodyl, Hypog lycemia Management [...] Ischemic cardiomyopathy,Sever e sigmoid diverticulosiswho presents to [facility] after an episode of fall. Principal Problem: [...] Communication thread: I called Beth platt # [phone] on July 20 at 1208 and answered [...] this chart may have been created with InSequent voice recognition software. Occasi onal wrong-word or sound-alike substitutions may have occurred due to the inherent olson itations of voice recognition software. Please read the chart carefully and recognize, using context, where these substitutions have occurred. Gordon Valdez MD - 10:39 AM PDT Service: Hospitalist Progress Note Pt: Duane Mas AGE/SEX: 80 y.o. male ROOM: [address] [place] [address] : 1940 PCP: Erin Forrester MD ADMIT DATE: 07/18/2020 TODAY'S DATE: 07/22/2020 Hospital Day/Hospital Course: LOS: 4 days Per ICU 80 y.o.malewith significant past medical history of DM2, CKD 4, CAD, 2V CABG 2000, SV t o LAD and SV to PDA, SSS s/p medtronic dual chamber PPM/ICD, Ischemic cardiomyopathy,Sever e sigmoid diverticulosiswho presents to [facility] after an episode of fall.Patient was trying [...] was found in the morning after [facility] he presented to the emergency roomon 07/16.He was initially found to be hypoglycem ic with a blood sugar of 40 hence he received D50. initially when patient was admitted to the hospital CK was elevated [id number].Hence kassy ent also received fluid resuscitation for rhabdomyolysis and was kept on maintenance fluid a t 125 cc/h. On 07/17,his CK worsened [id number].His troponin was only 0.014.Also he c ontinued to have soft blood pressures.Hence he was transferred to ICU in [facility] . On 07/18,he was also started on Sjqecqyw1smmkwk hypertension.Seems patient was al so continued on [...] 50% and appears normal Other pertinent labson 07/17,[id number],INR 3.3,creatinine 1.89,hemoglobin 13.5,W BC 11.7,ESR 78. On [...] to 30%, new pressor requirement,[facility]. On arrival to the [...] 75 mL/hr at 07/21/202120 PRN Medications acetaminophen, hqpcyezwpeAUZFV-kqsnuc-onejzsfvb mouthwash (ADS admixture), bisacodyl, Hypog lycemia Management [...] Ischemic cardiomyopathy,Sever e sigmoid diverticulosiswho presents to [facility] after an episode of fall. Principal Problem: [...] Communication thread: I called Beth platt # [phone] on July 20 at 1208 and answered [...] this chart may have been created with InSequent voice recognition software. Occasi onal wrong-word or sound-alike substitutions may have occurred due to the inherent olson itations of voice recognition software. Please read the chart carefully and recognize, using context, where these substitutions have occurred. 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 Pharmacy Warfarin Monitoring: Duane aMs male 80 y.o. admitted on 07/18 for cardiogenic shock, possible septic shock (transfer from [facility]) INDICATION: DVT OTHER ANTICOAGULATION: none identified DRUG INTERACTIONS: no significant DDI (cephalexin CARD LACER JACQUARD) PATIENT DIET: carb consistent Bleed risk: moderate, recent fall CARD LACER JACQUARD regimen: 2.5 mg daily - confirmed with patient , Beth, via pill bottle identificat ion and also confirmed with patient pharmacy ([facility]), and records from MD office [facility] Recent Labs Lab 07/21/20 0640 07/20/20 0553 [...] and modify therapy as indicated. Brooks Mccarthy, Casino Enforcement Agent 2:34 PM PDT 07/21/2020 Claribel Abdi, REUBEN - 07/21/2020 2:22 PM PDTFormatting of this note might be different from wojciech hernandez. NUTRITION NOTE Summary Assessment for pressure injury and possible dysphagia. Pt is 80 yo M admitted for shock, +C OVID-19. GUN STOCKER following, pt scheduled for MBS eval today. [...] displayed. Estimated Energy Needs Energy Calorie Requirements: 4976-7336 kcal(25-30 kcal/kg admit 77) Estimated Protein Needs Range Gm Protein (gm): 92-116 g(1.2-1.5 g/kg admit 77) Nutrition Diagnosis Inadequate oral intake related to decreased ability to consume sufficient energy as evidenc ed by reported poor intake/appetite Recommendations Consistent CHO diet with consistencies per GUN STOCKER - soft & bite sized, mildly thick [...] Ischemic cardiomyopathy,Sever e sigmoid diverticulosiswho presents to [facility] after an episode of fall.Patient was trying [...] [facility].He was initially found to be hypoglycem ic with a blood sugar of 40 hence he received D50. initially when patient was admitted to the hospital CK was elevated [id number].Hence kassy ent also received fluid resuscitation for rhabdomyolysis and was kept on maintenance fluid a t 125 cc/h. On 07/17,his CK worsened cv6557.His troponin was only 0.014.Also he c ontinued to have soft blood pressures.Hence he was transferred to ICU in [facility] . On 07/18,he was also started on Ibsymcie8cawgyu hypertension.Seems patient was al so continued on [...] 50% and appears normal Other pertinent labson 07/17,[id number],INR 3.3,creatinine 1.89,hemoglobin 13.5,W BC 11.7,ESR 78. On [...] to 30%, new pressor requirement,[facility]. On [facility] to the [...] mL/hr at 07/21/20 0809 PRN Medications acetaminophen, nabsfayufbOZPTM-fuuyhm-kyqmpcdlp mouthwash (ADS admixture), bisacodyl, Hypog lycemia Management [...] Ischemic cardiomyopathy,Sever e sigmoid diverticulosiswho presents to [facility] after an episode of fall. Principal Problem: [...] Communication thread: I called Beth platt # [phone] on July 20 at 1208 and answered all the question I called her on July 21 at 1140 and no answer Gordon Bragg MD, FACP 07/21/2020 11:00 AM PDT Portions of this chart may have been copied from previous notes for continuity of care purp ose Portions of this chart may have been created with InSequent voice recognition software. Occasi onal wrong-word or sound-alike substitutions may have occurred due to the inherent olson itations of voice recognition software. Please read the chart carefully and recognize, using context, where these substitutions have occurred. e, Sebas Lopez MD - 020 7:56 AM PDT [facility] Service: Cardiology Progress Note Date of Admission: 07/18/2020 BRIEF CLINICAL HISTORY: 80 y.o. male with prior history of coronary artery disease/[place] wit h prior stenting/2 vessel CABG (remote [...] and recent COVID19 diagnosis (with pneumonia per [facility] leodan office note 07/11/20). He presented to [facility] 07/16/20 after fall vs sync ope [...] abnormalities. He was then transfer red to [facility] for a higher level of care. Telemetry strips from [place] showed frequent PVC s and nonsustained VT. Upon presentation to [facility], his troponin was elevated, 1.265 (now trending [...] Past Medical History: Diagnosis Date Ankylosing spondylitis ([facility]) Arthritis Beta Blockers - Daily Use 07/22/2017 CAD (coronary artery disease) severe multivessel CAD Cardiac pacemaker in situ - [employer] 10/24/2016 [employer] - Placed Sep 2016 for sick sinus syndrome Chronic kidney disease Chronic renal insufficiency, stage 4 (severe) ([facility]) 02/10/2019 Chronic sinusitis Coronary artery disease involving autologous artery coronary bypass graft, angina prese nce unspecified 10/31/2015 SVG to the RCA occluded Deep vein thrombosis (DVT) ([facility]) Diabetes mellitus type II Diverticulosis Dysphagia GERD (gastroesophageal reflux disease) Hyperlipidemia Hypertension 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 STOP BANG Score 6 (High risk SEUN), does not want a sleep study, would not a ccept CPAP if prescribed. Peripheral neuropathy S/P CABG x 2 SVG to the LAD was patent on cardiac cath 2015 Sick sinus syndrome ([facility]) s/p pacemaker Systolic heart failure ([facility]) Unspecified visual disturbance Past Surgical History: Procedure Laterality Date ABDOMEN SURGERY APPENDECTOMY CARDIAC CATHERIZATION COLONOSCOPY 2014 COLONOSCOPY CORONARY ANGIOPLASTY WITH STENT PLACEMENT CORONARY ARTERY BYPASS GRAFT CORONARY ARTERY BYPASS GRAFT EYE SURGERY KNEE SURGERY Right 09/07/2013 Procedure: KNEE - TOTAL; Surgeon: Drew Hurst MD; Location: [facility] MAIN OR; Service : Orthopedics; Laterality: Right; alisha component.br OTHER SURGICAL HISTORY CATARACT EXTRACTION OTHER SURGICAL HISTORY PHRENIC NERVE PACEMAKER IMPLANTATION PACEMAKER INSERTION [employer] SINUS SURGERY TONSILLECTOMY AND ADENOIDECTOMY UPPER GASTROINTESTINAL ENDOSCOPY N/A 07/31/2017 Procedure: EGD with Dilation; Surgeon: Willow Colin MD; Location: [facility] MEDICAL PROCEDUR E UNIT UPPER GASTROINTESTINAL ENDOSCOPY N/A 02/10/2019 Procedure: EGD WITH DILITATION; Surgeon: Willow Colin MD; Location: [facility] MEDICAL PROCED URE UNIT VASECTOMY Allergies Allergen [...] mL/hr at 07/20/20 1426 PRN Medications acetaminophen, ppzafnlfdvHAXKN-wsfzbo-rwbryfhsi mouthwash (ADS admixture), bisacodyl, Hypog lycemia Management [...] normal, marked bilateral pretibial hyperpigmentati on with wquc-smjyv-jrrm desquamation. NEUROLOGIC: Awake, alert and oriented x [...] 2.6 3.0 Free T4 1.3 ECHO (07/18/20 ([facility]): Mildly dilated left ventricular cavity. Left [...] pectoris COVID-19 Cardiac pacemaker in situ - [employer] ASSESSMENT & PLAN 1. Rhabdomyolysis, s/p fall [...] cardiac catheterization October 2015 showed both the [place] RCA and its vein graft were occluded. There were lbkn-hm-uuhwa collaterals to the RPDA and RPLA (occlusi [...] to RV scarring fr om his inferior [place]. Wall motion abnormalities in the RCA territory [...] Code roctor, Amparo Faustin [facility] - 07/20/2020 3:33 PM PDT Pharmacy Warfarin Monitoring: Duane Mas male 80 y.o. admitted on 07/18 for cardiogenic shock, possible septic shock (transfer from [facility]) INDICATION: DVT OTHER ANTICOAGULATION: none identified DRUG INTERACTIONS: no significant DDI (cephalexin CARD LACER JACQUARD) PATIENT DIET: carb consistent Bleed risk: moderate, recent fall CARD LACER JACQUARD regimen: 2.5 mg daily - confirmed with patient , Beth, via pill bottle identificat ion and also confirmed with patient pharmacy ([facility]), and records from MD office [facility] Recent Labs Lab 07/20/20 0553 07/19/20 1603 07/19/20 0423 07/18/20 1737 HGB 12.4* -- 12.2* 13.4 PLT 131* -- 120* 146* INR 2.7 2.6 -- 2.6 DATE 07/20 07/19 07/18 INR 2.7 2.7 2.6, 2.6 Warfarin Dose 2.5 mg planned 2.5 mg Unknown, dose held Assessment: The INR is Within the target range of 2-3 Will continue with CARD LACER JACQUARD dose of 2.5 mg tonight as long [...] Ischemic cardiomyopathy,Sever e sigmoid diverticulosiswho presents to [facility] after an episode of fall.Patient was trying [...] admitted to the hospital CK was elevated [id number].Hence kassy ent also received fluid resuscitation for rhabdomyolysis and was kept on maintenance fluid a t 125 cc/h. On 07/17,his CK worsened az6237.His troponin was only 0.014.Also he c ontinued to have soft blood pressures.Hence he was transferred to ICU in [facility] . On 07/18,he was also started on [place]dsqas[place] hypertension.Seems patient was al so continued on [...] 50% and appears normal Other pertinent labson 07/17,[id number],INR 3.3,creatinine 1.89,hemoglobin 13.5,W BC 11.7,ESR 78. On [...] to 30%, new pressor requirement,[facility]. On [facility] to the [...] Continuous Infusions dextrose 10% PRN Medications acetaminophen, duqitanhdtCWFZC-sdnbqb-pbostopcy mouthwash (ADS admixture), bisacodyl, Hypog lycemia Management [...] Ischemic cardiomyopathy,Sever e sigmoid diverticulosiswho presents to [facility] after an episode of fall. Principal Problem: [...] 3 days Communication thread: I called Beth BrieFix # [phone] on July 20 at 1208 and answered all the question Gordon Bragg MD, FACP 07/20/2020 9:59 AM PDT Portions of this chart may have been copied from previous notes for continuity of care purp ose Portions of this chart may have been created with [employer]Sequent voice recognition software. Occasi onal wrong-word or sound-alike substitutions may have occurred due to the inherent olson itations of voice recognition software. Please read the chart carefully and recognize, using context, where these substitutions have occurred. e, Sebas Lopez MD - 07/20 8:57 AM PDT [facility] Service: Cardiology Progress Note Date of Admission: 07/18/2020 BRIEF CLINICAL HISTORY: 80 y.o. male with prior history of coronary artery disease/[place] wit h prior stenting/2 vessel CABG (remote [...] and [facility] He presented to [facility] 07/16/20 after fall vs sync ope [...] abnormalities. He was then transfer red to [facility] for a higher level of care. Telemetry strips from [place] showed frequent PVC s and nonsustained VT. Upon presentation to [facility], his troponin was elevated, 1.265 (now trending [...] Past Medical History: Diagnosis Date Ankylosing spondylitis ([facility]) Arthritis Beta Blockers - Daily Use 07/22/2017 CAD (coronary artery disease) severe multivessel CAD Cardiac pacemaker in situ - [employer] 10/24/2016 [employer] - Placed Sep 2016 for sick sinus syndrome Chronic kidney disease Chronic renal insufficiency, stage 4 (severe) ([facility]) 02/10/2019 Chronic sinusitis Coronary artery disease involving autologous artery coronary bypass graft, angina prese nce unspecified 10/31/2015 SVG to the RCA occluded Deep vein thrombosis (DVT) ([facility]) Diabetes mellitus type II Diverticulosis Dysphagia GERD (gastroesophageal reflux disease) Hyperlipidemia Hypertension 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 STOP BANG Score 6 (High risk SEUN), does not want a sleep study, would not a ccept CPAP if prescribed. Peripheral neuropathy S/P CABG x 2 SVG to the LAD was patent on cardiac cath 2015 Sick sinus syndrome ([facility]) s/p pacemaker Systolic heart failure ([facility]) Unspecified visual disturbance Past Surgical History: Procedure Laterality Date ABDOMEN SURGERY APPENDECTOMY CARDIAC CATHERIZATION COLONOSCOPY 2014 COLONOSCOPY CORONARY ANGIOPLASTY WITH STENT PLACEMENT CORONARY ARTERY BYPASS GRAFT CORONARY ARTERY BYPASS GRAFT EYE SURGERY KNEE SURGERY Right 09/07/2013 Procedure: KNEE - TOTAL; Surgeon: Drew Hurst MD; Location: [facility] MAIN OR; Service : Orthopedics; Laterality: Right; alisha component.br OTHER SURGICAL HISTORY CATARACT EXTRACTION OTHER SURGICAL HISTORY PHRENIC NERVE PACEMAKER IMPLANTATION PACEMAKER INSERTION Medtronic SINUS SURGERY TONSILLECTOMY AND ADENOIDECTOMY UPPER GASTROINTESTINAL ENDOSCOPY N/A 07/31/2017 Procedure: EGD with Dilation; Surgeon: Willow Colin MD; Location: [facility] MEDICAL PROCEDUR E UNIT UPPER GASTROINTESTINAL ENDOSCOPY N/A 02/10/2019 Procedure: EGD WITH DILITATION; Surgeon: Willow Colin MD; Location: [facility] MEDICAL PROCED URE UNIT VASECTOMY Allergies Allergen [...] Continuous Infusions dextrose 10% PRN Medications acetaminophen, dzrvozlivcMFEDB-jfoqzq-bkfdfervp mouthwash (ADS admixture), bisacodyl, Hypog lycemia Management [...] normal, marked bilateral pretibial hyperpigmentati on with lfrf-hquic-wtho desquamation. NEUROLOGIC: Awake, alert and oriented x [...] 2.7 2.6 -- 2.6 Echocardiogram (07/18/20 - [facility]): Mildly dilated left ventricular cavity. Left [...] pectoris COVID-19 Cardiac pacemaker in situ - Video RecruitTRONIC ASSESSMENT & PLAN 1. Rhabdomyolysis, s/p fall [...] cardiac catheterization October 2015 showed both the [place] RCA and its vein graft were occluded. There were asqm-um-zyscj collaterals to the RPDA and RPLA (occlusi [...] due to RV scarring from his inferior [place]. Wall motion abnormalities in the RCA territory [...] Report received over the phone pawan lopez PROGRAM DIRECTOR/MORNING SHOW HOST. Report given to FLY Middleton who will resume care. JAKOB LYNNE RN Jakob Mazariegos P harmD - 07/19/2020 5:41 PM PDT Pharmacy Warfarin Monitoring: Duane Mas male 80 y.o. admitted on 07/18 for cardiogenic shock, possible septic shock (transfer from [facility]) INDICATION: DVT OTHER ANTICOAGULATION: none identified DRUG INTERACTIONS: asa, cephalexin (patrol captain meds) PATIENT DIET: carb consistent Bleed risk: moderate, recent fall CARD LACER JACQUARD regimen: 2.5 mg daily - confirmed with patient , Beth, via pill bottle identificat ion and also confirmed with patient pharmacy ([facility]), and records from MD office [facility] 07/19/20 1603 07/19/20 0423 [...] to patient transfer . Will continue with CARD LACER JACQUARD dose of 2.5 mg tonight since INR [...] cardiogenic shock, possible septic shock (transfer from [facility]) INDICATION: DVT OTHER ANTICOAGULATION: none identified DRUG INTERACTIONS: no significant DDI PATIENT DIET: carb consistent Bleed risk: moderate, recent fall CARD LACER JACQUARD regimen: 2.5 mg daily - confirmed with patient , Beth, via pill bottle identificat ion and also confirmed with patient pharmacy ([facility]), and records from MD office [facility] 07/19/20 0423 07/18/20 1737 HGB 12.2* 13.4 PLT 120* 146* INR -- 2.6 DATE 07/19 07/18 INR - 2.6, 2.6 Warfarin Dose 2.5 mg planned Unknown, dose held Assessment: The INR is Within the target range of 2-3 Patient likely did not receive dose on 07/18 per review of records prior to patient transfer . Will continue with CARD LACER JACQUARD dose of 2.5 mg tonight as long as INR is within range Plan: Warfarin 2.5 mg po today INR in am Pharmacy will continue to follow and modify therapy as indicated. Amparo Clark RPH 3:09 PM PDT 07/19/2020 asi Duque ARNP - 07/19/2020 9:20 AM PDTFormatting of this note might be different from the origin [facility] Service: Slurry Mixer Progress Note Duane Mas 80 y.o. Hospital [...] cardiomyopathy, Severe sigmoid diverticulosis who presents to [facility] after an episode of fall. Patient was [...] to ICU in [facility]. On 07/18, he was also started on [...] new pressor requirement, patient was transferred to [facility] for further management. On arrival to the [...] other procedures. PADDY Redmond 07/19/2020 Dictation software, InSequent, was used which may contain error with [...] a dose tonight. He was transferred from [facility] and likely received a dose. I cannot [...] might be d ifferent from the original. [facility] Service: Slurry Mixer Admission History & Physical Duane Mas 80 [...] yopathy, Severe sigmoid diverticulosis who presents to [facility] after an episode of fall. Patient was [...] to ICU in [facility]. On 07/18, he was also started on [...] new pressor requirement, patient was transferred to [facility] for further management. On arrival to the [...] - heart block - hypertension - past [place] - pacemaker - PVD - sleep apnea - diverticular disease - GERD - obesity; due to excess calories; BMI (30-39) - arthritis REVIEW OF SYSTEMS At least 10 of the 14 systems are reviewed PAST MEDICAL HISTORY Past Medical History: Diagnosis Date DAIJA II Inhibitors - Daily Use 02/10/2019 Ankylosing spondylitis ([facility]) Arthritis Atrial fibrillation ([facility]) Beta Blockers - Daily Use 07/22/2017 Bradycardia CAD (coronary artery disease) Cardiac pacemaker in situ - MEDTRONIC 07/22/2017 Medtronic - Placed Sep 2016 for Symptomatic Bradycardia CHF (congestive heart failure) ([facility]) CHF (congestive heart failure) ([facility]) Chronic kidney disease Chronic renal insufficiency, stage 4 (severe) ([facility]) 02/10/2019 Chronic sinusitis Coronary artery disease Deep vein thrombosis (DVT) ([facility]) Diabetes mellitus type II Diabetes mellitus, type II - ORAL Control 07/22/2017 Diverticulosis Dysphagia GERD (gastroesophageal reflux disease) Hyperlipidemia Hypertension Hypertension, essential 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 MEDICAL PROCEDUR E UNIT UPPER GASTROINTESTINAL ENDOSCOPY N/A 02/10/2019 Procedure: EGD WITH DILITATION; Surgeon: Willow Colin MD; Location: [facility] MEDICAL PROCED URE UNIT VASECTOMY ALLERGIES Allergies [...] MD nystatin (MYCOSTATIN) 100,000 units/mL suspension nystatin [id number] unit/ml susp Luana Marcus MD nystatin (MYCOSTATIN) [...] Twice daily as needed. Aditya Marcus MD Slaton-3 Fatty Acids (FISH OIL PO) Take by mouth two times daily. Historical ProviderMD Slaton-3 Fatty Acids (FISH OIL) 1200 MG CAPS Take 1,200 mg by mouth 2 (two) times daily. Historical Provider, Slaton-3 Fatty Acids (OMEGA 3 PO) Slaton 3 Historical ProviderMD omeprazole (PRILOSEC) 20 mg [...] file Gets together: Not on file Attends presybeterian service: Not on file Active member of [...] PDTAssociated Order(s): PROVIDER TO PROVID ER CONSULT [facility] Service: Cardiology Initial Consult Note Name of Sand Temperer: Mellissa Moy. ROCAEL Hutchins/Dr. Sree Vickers Primary Instructor Kindergarten: None current, last seen by Manuel Rothman 02/2017 (last seen by YE Gupta 12/2017) Reason for Consultation: Worsening cardiomyopathy Requesting Physician: Dr. Thyagarajan, Slurry Mixer History Obtained From: Patient (poor historian), Chart Review CHIEF COMPLAINT: Fall vs syncope HISTORY OF PRESENT ILLNESS: Duane Mas is a 80 y.o. male with prior history of coronary artery disease/[place] with prior stenting/2 vessel CABG (remote - [...] and recent COVID19 diagnosis (with pneumonia per [facility] office no te 07/11/20). He presented to [facility] 07/16/20 after fall vs syncope with [...] abnormalities. He was then riggs sferred to [facility] for higher level of care. Telemetry strips from [place] with frequent PVC s and nonsustained VT. Upon presentation to [facility], troponin 1.265 and CK 2937. Creatinine 1.95. [...] Past Medical History: Diagnosis Date Ankylosing spondylitis ([facility]) Arthritis Beta Blockers - Daily Use 07/22/2017 CAD (coronary artery disease) Cardiac pacemaker in situ - MEDTRONIC 10/24/2016 Medtronic - Placed Sep 2016 for sick sinus syndrome Chronic kidney disease Chronic renal insufficiency, stage 4 (severe) ([facility]) 02/10/2019 Chronic sinusitis Deep vein thrombosis (DVT) ([facility]) Diabetes mellitus type II Diverticulosis Dysphagia GERD (gastroesophageal reflux disease) Hyperlipidemia Hypertension Ischemic cardiomyopathy Joint pain care home current use of anticoagulant - COUMADIN 07/22/2017 HX VTE Neuromuscular disorder ([facility]) Old myocardial infarction SEUN (obstructive sleep apnea) 07/22/2017 UNTREATED SEUN. STOP BANG Score 6 (High risk SEUN), does not want a sleep study, would not a ccept CPAP if prescribed. Peripheral neuropathy Sick sinus syndrome ([facility]) s/p pacemaker Systolic heart failure ([facility]) Unspecified visual disturbance Past Surgical History: Procedure Laterality Date ABDOMEN SURGERY APPENDECTOMY CARDIAC CATHERIZATION COLONOSCOPY 2014 COLONOSCOPY CORONARY ANGIOPLASTY WITH STENT PLACEMENT CORONARY ARTERY BYPASS GRAFT CORONARY ARTERY BYPASS GRAFT EYE SURGERY KNEE SURGERY Right 09/07/2013 Procedure: KNEE - TOTAL; Surgeon: Drew Hurst MD; Location: [facility] MAIN OR; Service : Orthopedics; Laterality: Right; alisha component.br OTHER SURGICAL HISTORY CATARACT EXTRACTION OTHER SURGICAL HISTORY PHRENIC NERVE PACEMAKER IMPLANTATION PACEMAKER INSERTION Medtronic SINUS SURGERY TONSILLECTOMY AND ADENOIDECTOMY UPPER GASTROINTESTINAL ENDOSCOPY N/A 07/31/2017 Procedure: EGD with Dilation; Surgeon: Willow Colin MD; Location: [facility] MEDICAL PROCEDUR E UNIT UPPER GASTROINTESTINAL ENDOSCOPY N/A 02/10/2019 Procedure: EGD WITH DILITATION; Surgeon: Willow Colin MD; Location: [facility] MEDICAL PROCED URE UNIT VASECTOMY MEDICATIONS Home [...] file Gets together: Not on file Attends presybeterian service: Not on file Active member of [...] longevity 5-7.5 years. 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 0 AT/AF burden. Episode of 1:1 atrial [...] No previous test for comparison. Cardiac catheterization: [facility] 10/31/2015 (reviewed today) CORONARY ANGIOGRAPHY The coronary [...] as below. No ECG on review of [facility] records or here. Mina l obtain now. [...] arrival. 14. Chronic kidney disease - With AVLINO as above. 15. Prior DVT on warfarin, [...] from RV scarring from his former inferior [place] as both the [place] RCA and its graft are occluded. However, [...] purposes. If applicable, transfer resident [facility] a [facility] 3. Educate and reinforce infection prevention [...] purposes. If applicable, [facility]. Educate and reinforce infection prevention [...] needs: other (see comments)(pending d/c meds) Notes: GEOTHERMAL TECHNICIAN spoke to pt who requested that CM contact pt's , Beth ([phone]). CM spoke to Beth who reports that pt does not need any DME at home and has all needed DME. Per , pt will be discharge on Coumadin. However, the Coumadin is not new and pt was on Co umadin prior to admission. Pt's confirmed that pt was on Coumadin prior to admission. Beth requested that pt receive home health services. GEOTHERMAL TECHNICIAN faxed referral to [facility]. Per [facility], they have therapy staff available but no nursing staff at this time. Beth reports that Erin Forrester is not pt's PCP any longer. Pt sees Gilberto Estrada MD at [facility]. CM called [facility] to verify that pt is cu rrent. Pt is current. [facility] [address] [place] [address] P: F: [facility] [address] [place] [address] The following added to AVS - Call [facility] Referral sent on 07/25. Please call to set up services for Physical Therapy and Nursing care . [facility] [address] [place] [address] Pt will discharge on Entresto. Per spouse, pt does have medication insurance. MD will send prescription to [facility] for the 30 day free trial. Pt will follow up with cardiology in 2 weeks. Spouse instructed to speak to private eye about medication cost concerns. After e 30 [...] Living Environment Comment: Resides with spouse in [place]. They have 2 adult sons who have be en assisting as both pt and his spouse had Covid-19 in May. [place], still [facility] sts somewhat but mostly ran by [...] Assess/Train, Comment: socks LB Dressing, Level of [place]: maximal assist (25% patient effort) LB Dressing Assess/Train, Position: sitting LB Dressing Impairments: decreased flexibility, ROM decreased, strength decreased Bed Mobility Bed Mobility Comments: needed encouragement to participate Supine to Sit, Level of [place]: minimal assist (75% patient effort) Safety Issues: decreased use of legs for bridging/pushing, decreased use of arms for pushin g/pulling Impairments: strength decreased Transfers Transfers Comments: verbal cues Sit-Stand, Level of [place]: minimal assist (75% patient effort) Stand-Sit, Level of [place]: minimal assist (75% patient effort) Cgx-Huxnp-Rab, Assistive Device: gait belt Safety Issues: sequencing [...] LTG Status new at 07/24/2020 1410 LTG [place] Level modified independent at 07/24/2020 1410 LTG Adaptive Equipment none at 07/24/2020 1410 LB Dressing Goal Most Recent Value LTG Status new at 07/24/2020 1410 LTG [place] Level minimum assist (75% patient effort) at [...] purposes. If applicable, transfer [facility] 3. Educate and reinforce infection prevention [...] Ongoing, progressing lan of Vijaya Brown MS CCC-GUN STOCKER - 07/24/2020 12:00 PM PDTFormatting of this [...] water by cup with burping as well. GUN STOCKER to follow. Recommend staff to remind patient [...] changes this shift. Will continue to monitor. Synagogue J. Sands, RN lan of Care - [...] purposes. If applicable, transfer resident [facility] 3. Educate and reinforce infection prevention [...] Living Environment Comment: Resides with spouse in [place]. They have 2 adult sons who have [...] supine to/from sit Roll Left, Level of [place]: stand by assist Roll Right, Level of [place]: stand by assist Supine to Sit, Level of [place]: minimal assist (75% patient effort) Safety Issues: decreased use of legs for bridging/pushing, decreased use of arms for pushin g/pulling Impairments: strength decreased Transfers Additional Documentation: sit to/from stand Sit-Stand, Level of [place]: contact guard assist Stand-Sit, Level of [place]: contact guard assist Dda-Qnpmw-Uda, Assistive Device: gait belt Safety Issues: sequencing ability decreased Impairments: strength decreased, impaired balance Gait Level of [place]: contact guard assist Assistive Device: gait belt, [...] Bed Mobility Goal Most Recent Value LTG [place] Level supervised at 07/21/2020 1520 All Transfers Goal Most Recent Value LTG [place] Level supervised at 07/21/2020 1520 Gait Goal Most Recent Value LTG [place] Level supervised at 07/21/2020 1520 LTG Assistive Device other (see comments) [least restrictive device] at 07/21/2020 1520 LTG Distance (feet) 150 at 07/21/2020 1520 lan of Care - [facility] Karissa membreno MA, CCC-GUN STOCKER - 07/21/2020 2:45 PM PDTFormatting of this [...] The Chronically Ill - Vijaya Salinas MS [facility]-GUN STOCKER - 07/20/2020 4:20 PM PDTFormatting of th [...] Summary: Patient seen at bedside for initial GUN STOCKER evaluation due to RN report of coughing [...] continue to follow for discharge planning Notes: GEOTHERMAL TECHNICIAN p/c with Pt spouse (Beth Mas [phone]) for discharge planning, states they resid e [...] thinners. Pt and Pt spouse reside in [place], [place], [place]. Pt may benefit from Home Health PT [...] accepted this patient to the hospitalist serv [facility]. Orders placed for transfer. PADDY Redmond 07/19/2020 4:55 PM PDT lan of Care - Cathi Damon RN - 07/19/2020 2:42 AM PDT Problem: Hemodynamic Instability (Sepsis/Septic Shock) Goal: Effective Tissue Perfusion Outcome: Ongoing, progressing Pt was transferred to [facility] due to hypotension and TTE showing 25-30%. [...] known or suspected case of COVID-19 to [facility] public health personnel 9. Avoid procedures that [...] artery | Ordered: 07/25/2020 | | to [facility] | Referral | e | disease involving | | | | | | [place] coronary | | | | | | artery of [place] | | | | | | heart [...] | | | POC | performed at [facility];[address] | | LABORATORY | | | | [address];[place] | | | | | | [address] | | | | + + + + + + + + | Specimen | + + | | + + + + + + + | Performing | Address | City/State/Zipcode | Phone Number | | Organization | | | | + + + + + | [facility] | [address] | [place] [address] | [phone] | + + + + + CBC [...] LABORATORY | | | | TCL, [address] [facility] | | | | | | [place] | | | | | | [address] | | | | + + + + + + + + | Specimen | + + | Blood | + + + + + + + | Performing | Address | City/State/Zipcode | Phone Number | | Organization | | | | + + + + + | [facility] | [address] | [place] [address] | [phone] | + + + + + Protime [...] | | | | | performed at [facility];[address] | | | | | | [address];[place] | | | | | | [address] | | | | + + + + + + + + | Specimen | + + | Blood | + + + + + + + | Performing | Address | City/State/Zipcode | Phone Number | | Organization | | | | + + + + + | [facility] | [address] | [place] [address] | [phone] | + + + + + Comprehensive [...] | | | | | performed at [facility], [address] | | | | | | [facility], | | | | | | [place] [address] | | | | + + + + + + + + | Specimen | + + | Blood | + + + + + + + | Performing | Address | City/State/Zipcode | Phone Number | | Organization | | | | + + + + + | [facility] | [address] | [place] [address] | [phone] | + + + + + POC Glucose (07/24/2020 8:29 PM PDT) + + + + + + | Component | Value | Ref Range | Performed | Pathologist | | | | | At | Signature | + + + + + + | Glucose, | 136 (H)Comment: Testing | 65 - 99 mg/dL | [facility] | | | POC | performed at [facility];[address] | | LABORATORY | | | | [address];[place] | | | | | | [address] | | | | + + + + + + + + | Specimen | + + | | + + + + + + + | Performing | Address | City/State/Zipcode | Phone Number | | Organization | | | | + + + + + | [facility] | [address] | [place] [address] | [phone] | + + + + + POC [...] | | | POC | performed at [facility];[address] | | LABORATORY | | | | [address];[place], [place] | | | | | | [address] | | | | + + + + + + + + | Specimen | + + | | + + + + + + + | Performing | Address | City/State/Zipcode | Phone Number | | Organization | | | | + + + + + | [facility] | [address] | [place] [address] | [phone] | + + + + + POC [...] | | | POC | performed at [facility];[address] | | LABORATORY | | | | [address];[place] | | | | | | [address] | | | | + + + + + + + + | Specimen | + + | | + + + + + + + | Performing | Address | City/State/Zipcode | Phone Number | | Organization | | | | + + + + + | [facility] | [address] | [place] [address] | [phone] | + + + + + POC Glucose (07/24/2020 7:31 AM PDT) + + + + + + | Component | Value | Ref Range | Performed | Pathologist | | | | | At | Signature | + + + + + + | Glucose, | 129 (H)Comment: Testing | 65 - 99 mg/dL | [facility] | | | POC | performed at [facility];[address] | | LABORATORY | | | | [address];[place] | | | | | | [address] | | | | + + + + + + + + | Specimen | + + | | + + + + + + + | Performing | Address | City/State/Zipcode | Phone Number | | Organization | | | | + + + + + | [facility] | [address] | [place] [address] | [phone] | + + + + + CBC with Differential (07/24/2020 6:06 AM PDT) + + + + + + | Component | Value | Ref Range | Performed | Pathologist | | | | | At | Signature | + + + + + + | WBC | 9.21 | 3.80 - 11.00 | [facility] | | | | | K/uL | LABORATORY | | + + + + + + | Red Blood | 4.13 (L) | 4.20 - 5.70 | [facility] | | | Cells | | M/uL [...] at | | | | | | [facility], [address] | | | | | | [place] | | | | | | [address] | | | | + + + + + + + + | Specimen | + + | Blood | + + + + + + + | Performing | Address | City/State/Zipcode | Phone Number | | Organization | | | | + + + + + | [facility] | [address] | [place] [address] | [phone] | + + + + + Basic [...] 49 (L)Comment: GFR <60: | >60 | [facility] | | | GFR | CHRONIC KIDNEY [...] | | | | | | MDRD [facility] traceable | | | | | | equation.Testing | | | | | | performed at [facility], [address] | | | | | | [facility], | | | | | | [place] [address] | | | | + + + + + + + + | Specimen | + + | Blood | + + + + + + + | Performing | Address | City/State/Zipcode | Phone Number | | Organization | | | | + + + + + | [facility] | [address] | [place] [address] | [phone] | + + + + + Protime INR (07/24/2020 6:06 AM PDT) + + + + + + | Component | Value | Ref Range | Performed | Pathologist | | | | | At | Signature | + + + + + + | INR | 3.6Comment: REFERENCE | | [facility] | | | | RANGE:0.9 - 1.2 [...] | | | | | performed at [facility];[address] | | | | | | [facility];[place] | | | | | | [address] | | | | + + + + + + + + | Specimen | + + | Blood | + + + + + + + | Performing | Address | City/State/Zipcode | Phone Number | | Organization | | | | + + + + + | [facility] | [address] | [place] [address] | [phone] | + + + + + POC Glucose (07/23/2020 8:02 PM PDT) + + + + + + | Component | Value | Ref Range | Performed | Pathologist | | | | | At | Signature | + + + + + + | Glucose, | 139 (H)Comment: Testing | 65 - 99 mg/dL | [facility] | | | POC | performed at [facility];[address] | | LABORATORY | | | | [address];[place] | | | | | | [address] | | | | + + + + + + + + | Specimen | + + | | + + + + + + + | Performing | Address | City/State/Zipcode | Phone Number | | Organization | | | | + + + + + | [facility] | [address] | [place] [address] | [phone] | + + + + + POC [...] | | | POC | performed at [facility];[address] | | LABORATORY | | | | [address];[place] | | | | | | [address] | | | | + + + + + + + + | Specimen | + + | | + + + + + + + | Performing | Address | City/State/Zipcode | Phone Number | | Organization | | | | + + + + + | [facility] | [address] | [place] [address] | [phone] | + + + + + POC [...] | | | POC | performed at [facility];[address] | | LABORATORY | | | | [address];[place], [place] | | | | | | [address] | | | | + + + + + + + + | Specimen | + + | | + + + + + + + | Performing | Address | City/State/Zipcode | Phone Number | | Organization | | | | + + + + + | [facility] | [address] [facility] | [place] [address] | [phone] | + + + + + POC [...] | | | POC | performed at [facility];[address] | | LABORATORY | | | | [address];[place], [place] | | | | | | [address] | | | | + + + + + + + + | Specimen | + + | | + + + + + + + | Performing | Address | City/State/Zipcode | Phone Number | | Organization | | | | + + + + + | [facility] | [address] | [place] [address] | [phone] | + + + + + Magnesium (07/23/2020 5:29 AM PDT) + + + + + + | Component | Value | Ref Range | Performed | Pathologist | | | | | At | Signature | + + + + + + | Magnesium | 2.0Comment: Testing | 1.7 - 2.4 mg/dL | [facility] | | | | performed at [facility];[address] | | LABORATORY | | | | [address];[place] | | | | | | [address] | | | | + + + + + + + + | Specimen | + + | Blood | + + + + + + + | Performing | Address | City/State/Zipcode | Phone Number | | Organization | | | | + + + + + | [facility] | [address] | [place] [address] | [phone] | + + + + + CBC [...] at | | | | | | [facility];[address] [place] [address] | | | | | | Bl;[place] [address] | | | | + + + + + + + + | Specimen | + + | Blood | + + + + + + + | Performing | Address | City/State/Zipcode | Phone Number | | Organization | | | | + + + + + | [facility] | [address] | [place] [address] | [phone] | + + + + + Basic [...] 53 (L)Comment: GFR <60: | >60 | [facility] | | | GFR | CHRONIC KIDNEY [...] | | | | | | MDRD IDIN traceable | | | | | | equation.Testing | | | | | | performed at [facility], [address] | | | | | | [facility], | | | | | | [place] [address] | | | | + + + + + + + + | Specimen | + + | Blood | + + + + + + + | Performing | Address | City/State/Zipcode | Phone Number | | Organization | | | | + + + + + | [facility] | [address] | [place] [address] | [phone] | + + + + + Protime INR (07/23/2020 5:29 AM PDT) + + + + + + | Component | Value | Ref Range | Performed | Pathologist | | | | | At | Signature | + + + + + + | INR | 4.2Comment: REFERENCE | | [facility] | | | | RANGE:0.9 - 1.2 [...] | | | | | performed at [facility];[address] | | | | | | [address];[place] | | | | | | [address] | | | | + + + + + + + + | Specimen | + + | Blood | + + + + + + + | Performing | Address | City/State/Zipcode | Phone Number | | Organization | | | | + + + + + | [facility] | [address] | [place] [address] | [phone] | + + + + + CK [...] JAZMIN | | | | performed at [facility];[address] | | LABORATORY | | | | [address];[place] | | | | | | [address] | | | | + + + + + + + + | Specimen | + + | Blood | + + + + + + + | Performing | Address | City/State/Zipcode | Phone Number | | Organization | | | | + + + + + | [facility] | [address] | [place] [address] | [phone] | + + + + + POC [...] | | | POC | performed at [facility];[address] | | LABORATORY | | | | [address];[place], [place] | | | | | | [address] | | | | + + + + + + + + | Specimen | + + | | + + + + + + + | Performing | Address | City/State/Zipcode | Phone Number | | Organization | | | | + + + + + | [facility] | [address] | [place] [address] | [phone] | + + + + + POC Glucose (07/22/2020 4:56 PM PDT) + + + + + + | Component | Value | Ref Range | Performed | Pathologist | | | | | At | Signature | + + + + + + | Glucose, | 117 (H)Comment: Testing | 65 - 99 mg/dL | [facility] | | | POC | performed at [facility];[address] | | LABORATORY | | | | [address];[place], [place] | | | | | | [address] | | | | + + + + + + + + | Specimen | + + | | + + + + + + + | Performing | Address | City/State/Zipcode | Phone Number | | Organization | | | | + + + + + | [facility] | [address] | [place] [address] | [phone] | + + + + + POC Glucose (07/22/2020 12:02 PM PDT) + + + + + + | Component | Value | Ref Range | Performed | Pathologist | | | | | At | Signature | + + + + + + | Glucose, | 133 (H)Comment: Testing | 65 - 99 mg/dL | [facility] | | | POC | performed at [facility];[address] | | LABORATORY | | | | [address];[place] | | | | | | [address] | | | | + + + + + + + + | Specimen | + + | | + + + + + + + | Performing | Address | City/State/Zipcode | Phone Number | | Organization | | | | + + + + + | [facility] | [address] | [place] [address] | [phone] | + + + + + POC [...] | | | POC | performed at [facility];[address] | | LABORATORY | | | | [address];[place], [place] | | | | | | [address] | | | | + + + + + + + + | Specimen | + + | | + + + + + + + | Performing | Address | City/State/Zipcode | Phone Number | | Organization | | | | + + + + + | [facility] | [address] | [place] [address] | [phone] | + + + + + Magnesium (07/22/2020 7:06 AM PDT) + + + + + + | Component | Value | Ref Range | Performed | Pathologist | | | | | At | Signature | + + + + + + | Magnesium | 2.1Comment: Testing | 1.7 - 2.4 mg/dL | [facility] | | | | performed at [facility];[address] | | LABORATORY | | | | [address];[place], [place] | | | | | | [address] | | | | + + + + + + + + | Specimen | + + | Blood | + + + + + + + | Performing | Address | City/State/Zipcode | Phone Number | | Organization | | | | + + + + + | [facility] | [address] [facility] [address] [facility] | [place] [address] | [phone] | + + + + + CBC [...] | | | Absolute | performed at [facility];[address] | K/uL | LABORATORY | | | | [address];[place], [place] | | | | | | [address] | | | | + + + + + + + + | Specimen | + + | Blood | + + + + + + + | Performing | Address | City/State/Zipcode | Phone Number | | Organization | | | | + + + + + | [facility] | [address] | [place] [address] | [phone] | + + + + + Basic [...] 51 (L)Comment: GFR <60: | >60 | [facility] | | | GFR | CHRONIC KIDNEY [...] | | | | | | MDRD [facility] traceable | | | | | | equation.Testing | | | | | | performed at [facility];[address] | | | | | | [facility];[place], [place] | | | | | | [address] | | | | + + + + + + + + | Specimen | + + | Blood | + + + + + + + | Performing | Address | City/State/Zipcode | Phone Number | | Organization | | | | + + + + + | [facility] | [address] | [place] [address] | [phone] | + + + + + Protime INR (07/22/2020 7:06 AM PDT) + + + + + + | Component | Value | Ref Range | Performed | Pathologist | | | | | At | Signature | + + + + + + | INR | 3.9Comment: REFERENCE | | [facility] | | | | RANGE:0.9 - 1.2 [...] | | | | | performed at [facility];[address] | | | | | | [address];[place] | | | | | | [address] | | | | + + + + + + + + | Specimen | + + | Blood | + + + + + + + | Performing | Address | City/State/Zipcode | Phone Number | | Organization | | | | + + + + + | [facility] | [address] | [place] [address] | [phone] | + + + + + POC [...] | | | POC | performed at [facility];[address] | | LABORATORY | | | | [address];[place] | | | | | | [address] | | | | + + + + + + + + | Specimen | + + | | + + + + + + + | Performing | Address | City/State/Zipcode | Phone Number | | Organization | | | | + + + + + | [facility] | [address] | [place] [address] | [phone] | + + + + + POC Glucose (07/21/2020 4:30 PM PDT) + + + + + + | Component | Value | Ref Range | Performed | Pathologist | | | | | At | Signature | + + + + + + | Glucose, | 160 (H)Comment: Testing | 65 - 99 mg/dL | [facility] | | | POC | performed at [facility];[address] | | LABORATORY | | | | [address];[place] | | | | | | [address] | | | | + + + + + + + + | Specimen | + + | | + + + + + + + | Performing | Address | City/State/Zipcode | Phone Number | | Organization | | | | + + + + + | [facility] | [address] | [place] [address] | [phone] | + + + + + POC Glucose (07/21/2020 12:39 PM PDT) + + + + + + | Component | Value | Ref Range | Performed | Pathologist | | | | | At | Signature | + + + + + + | Glucose, | 120 (H)Comment: Testing | 65 - 99 mg/dL | [facility] | | | POC | performed at [facility];[address] | | LABORATORY | | | | [address];[place], [place] | | | | | | [address] | | | | + + + + + + + + | Specimen | + + | | + + + + + + + | Performing | Address | City/State/Zipcode | Phone Number | | Organization | | | | + + + + + | [facility] | [address] | [place] [address] | [phone] | + + + + + [place] [...] | | | POC | performed at [facility];[address] | | LABORATORY | | | | [address];[place], [place] | | | | | | [address] | | | | + + + + + + + + | Specimen | + + | | + + + + + + + | Performing | Address | City/State/Zipcode | Phone Number | | Organization | | | | + + + + + | [facility] | [address] | [place] [address] | [phone] | + + + + + Magnesium (07/21/2020 6:40 AM PDT) + + + + + + | Component | Value | Ref Range | Performed | Pathologist | | | | | At | Signature | + + + + + + | Magnesium | 2.3Comment: Testing | 1.7 - 2.4 mg/dL | [facility] | | | | performed at [facility];[address] | | LABORATORY | | | | [address];[place] | | | | | | [address] | | | | + + + + + + + + | Specimen | + + | Blood | + + + + + + + | Performing | Address | City/State/Zipcode | Phone Number | | Organization | | | | + + + + + | [facility] | [address] | [place] [address] | [phone] | + + + + + CBC [...] | | | Absolute | performed at [facility];[address] | K/uL | LABORATORY | | | | [facility];[place], [place] | | | | | | [address] | | | | + + + + + + + + | Specimen | + + | Blood | + + + + + + + | Performing | Address | City/State/Zipcode | Phone Number | | Organization | | | | + + + + + | [facility] | [address] | [place] [address] | [phone] | + + + + + Basic [...] 40 (L)Comment: GFR <60: | >60 | [facility] | | | GFR | CHRONIC KIDNEY [...] | | | | | | MDRD IDIN traceable | | | | | | equation.Testing | | | | | | performed at [facility];[address] | | | | | | [facility];[place], [place] | | | | | | [address] | | | | + + + + + + + + | Specimen | + + | Blood | + + + + + + + | Performing | Address | City/State/Zipcode | Phone Number | | Organization | | | | + + + + + | [facility] | [address] | [place] [address] | [phone] | + + + + + Protime INR (07/21/2020 6:40 AM PDT) + + + + + + | Component | Value | Ref Range | Performed | Pathologist | | | | | At | Signature | + + + + + + | INR | 3.2Comment: REFERENCE | | [facility] | | | | RANGE:0.9 - 1.2 [...] | | | | | performed at [facility];[address] | | | | | | [address];[place] | | | | | | [address] | | | | + + + + + + + + | Specimen | + + | Blood | + + + + + + + | Performing | Address | City/State/Zipcode | Phone Number | | Organization | | | | + + + + + | [facility] | [address] | [place] [address] | [phone] | + + + + + CK [...] [address];[place] [address] | | | | + + + + + + + + | Specimen | + + | Blood | + + + + + + + | Performing | Address | City/State/Zipcode | Phone Number | | Organization | | | | + + + + + | [facility] | [address] | [place] [address] | [phone] | + + + + + POC Glucose (07/20/2020 8:48 PM PDT) + + + + + + | Component | Value | Ref Range | Performed | Pathologist | | | | | At | Signature | + + + + + + | Glucose, | 105 (H)Comment: Testing | 65 - 99 mg/dL | [facility] | | | POC | performed at [facility];[address] | | LABORATORY | | | | [address];[place] | | | | | | [address] | | | | + + + + + + + + | Specimen | + + | | + + + + + + + | Performing | Address | City/State/Zipcode | Phone Number | | Organization | | | | + + + + + | [facility] | [address] | [place] [address] | [phone] | + + + + + POC Glucose (07/20/2020 4:59 PM PDT) + + + + + + | Component | Value | Ref Range | Performed | Pathologist | | | | | At | Signature | + + + + + + | Glucose, | 113 (H)Comment: Testing | 65 - 99 mg/dL | [facility] | | | POC | performed at [facility];[address] | | LABORATORY | | | | [address];[place], [place] | | | | | | [address] | | | | + + + + + + + + | Specimen | + + | | + + + + + + + | Performing | Address | City/State/Zipcode | Phone Number | | Organization | | | | + + + + + | [facility] | [address] | [place] [address] | [phone] | + + + + + POC [...] | | | POC | performed at [facility];[address] | | LABORATORY | | | | [address];[place] | | | | | | [address] | | | | + + + + + + + + | Specimen | + + | | + + + + + + + | Performing | Address | City/State/Zipcode | Phone Number | | Organization | | | | + + + + + | [facility] | [address] | [place] [address] | [phone] | + + + + + CK [...] | | LABORATORY | | | | [facility];[address] | [address];[place] [address] | | | | + + + + + + + + | Specimen | + + | Blood | + + + + + + + | Performing | Address | City/State/Zipcode | Phone Number | | Organization | | | | + + + + + | [facility] | [address] | [place] [address] | [phone] | + + + + + POC Glucose (07/20/2020 11:43 AM PDT) + + + + + + | Component | Value | Ref Range | Performed | Pathologist | | | | | At | Signature | + + + + + + | Glucose, | 94Comment: Testing | 65 - 99 mg/dL | [facility] | | | POC | performed at [facility];[address] | | LABORATORY | | | | [address];[place], [place] | | | | | | [address] | | | | + + + + + + + + | Specimen | + + | | + + + + + + + | Performing | Address | City/State/Zipcode | Phone Number | | Organization | | | | + + + + + | [facility] | [address] | [place] [address] | [phone] | + + + + + POC Glucose (07/20/2020 7:54 AM PDT) + + + + + + | Component | Value | Ref Range | Performed | Pathologist | | | | | At | Signature | + + + + + + | Glucose, | 89Comment: Testing | 65 - 99 mg/dL | [facility] | | | POC | performed at [facility];[address] | | LABORATORY | | | | [address] [facility];[place], [place] | | | | | | [address] | | | | + + + + + + + + | Specimen | + + | | + + + + + + + | Performing | Address | City/State/Zipcode | Phone Number | | Organization | | | | + + + + + | [facility] | [address] | [place] [address] | [phone] | + + + + + T4, Free (07/20/2020 5:53 AM PDT) + + + + + + | Component | Value | Ref Range | Performed | Pathologist | | | | | At | Signature | + + + + + + | FT4 | 1.3Comment: Testing | 0.7 - 1.5 ng/dL | [facility] | | | | performed at [facility];[address] | | LABORATORY | | | | [address];[place] | | | | | | [address] | | | | + + + + + + + + | Specimen | + + | | + + + + + + + | Performing | Address | City/State/Zipcode | Phone Number | | Organization | | | | + + + + + | [facility] | [address] | [place] [address] | [phone] | + + + + + TSH, Reflex Free T4 (07/20/2020 5:53 AM PDT) + + + + + + | Component | Value | Ref Range | Performed | Pathologist | | | | | At | Signature | + + + + + + | TSH | 0.372 (L) | 0.450 - 5.100 | [facility] | | | | | uIU/mL | LABORATORY | | + + + + + + + + | Specimen | + + | Blood | + + + + + + + | Performing | Address | City/State/Zipcode | Phone Number | | Organization | | | | + + + + + | [facility] | [address] | [place] [address] | [phone] | + + + + + Magnesium (07/20/2020 5:53 AM PDT) + + + + + + | Component | Value | Ref Range | Performed | Pathologist | | | | | At | Signature | + + + + + + | Magnesium | 2.3Comment: Testing | 1.7 - 2.4 mg/dL | [facility] | | | | performed at [facility];[address] | | LABORATORY | | | | [address];[place] | | | | | | [address] | | | | + + + + + + + + | Specimen | + + | Blood | + + + + + + + | Performing | Address | City/State/Zipcode | Phone Number | | Organization | | | | + + + + + | [facility] | [address] | [place] [address] | [phone] | + + + + + CBC [...] 0.03Comment: Testing | 0.00 - 0.10 | [facility] | | | Absolute | performed at [facility], [address] | K/uL | LABORATORY | | | | [address], | | | | | | [place] [address] | | | | + + + + + + + + | Specimen | + + | Blood | + + + + + + + | Performing | Address | City/State/Zipcode | Phone Number | | Organization | | | | + + + + + | [facility] | [address] | [place] [address] | [phone] | + + + + + Basic [...] | | | | | performed at [facility] | | | | | | [facility];[place], [place] | | | | | | [address] | | | | + + + + + + + + | Specimen | + + | Blood | + + + + + + + | Performing | Address | City/State/Zipcode | Phone Number | | Organization | | | | + + + + + | [facility] | [address] | [place] [address] | [phone] | + + + + + Noemíime [...] | | | | | performed at [facility];[address] | | | | | | [address];[place], [place] | | | | | | [address] | | | | + + + + + + + + | Specimen | + + | Blood | + + + + + + + | Performing | Address | City/State/Zipcode | Phone Number | | Organization | | | | + + + + + | [facility] | [address] | [place] [address] | [phone] | + + + + + CK [...] | | LABORATORY | | | | [facility];[address];[place] [address] | | | | + + + + + + + + | Specimen | + + | Blood | + + + + + + + | Performing | Address | City/State/Zipcode | Phone Number | | Organization | | | | + + + + + | [facility] | [address] | [place] [address] | [phone] | + + + + + Lipid [...] | | | Calculated | performed at [facility], [address] | | LABORATORY | | | | [address], | | | | | | [place] [address] | | | | + + + + + + + + | Specimen | + + | Blood | + + + + + + + | Performing | Address | City/State/Zipcode | Phone Number | | Organization | | | | + + + + + | [facility] | [address] | [place] [address] | [phone] | + + + + + POC Glucose (07/19/2020 7:50 PM PDT) + + + + + + | Component | Value | Ref Range | Performed | Pathologist | | | | | At | Signature | + + + + + + | Glucose, | 110 (H)Comment: Testing | 65 - 99 mg/dL | [facility] | | | POC | performed at [facility];[address] | | LABORATORY | | | | [address];[place], [place] | | | | | | [address] | | | | + + + + + + + + | Specimen | + + | | + + + + + + + | Performing | Address | City/State/Zipcode | Phone Number | | Organization | | | | + + + + + | [facility] | [address] | [place] [address] | [phone] | + + + + + POC [...] | | | POC | performed at [facility];[address] | | LABORATORY | | | | [address];[place], [place] | | | | | | [address] | | | | + + + + + + + + | Specimen | + + | | + + + + + + + | Performing | Address | City/State/Zipcode | Phone Number | | Organization | | | | + + + + + | [facility] | [address] | [place] [address] | [phone] | + + + + + ECG [...] | LABORATORY | | | | [facility] [facility] | | | | | | [address]vd;[place] [address] | | | | + + + + + + + + | Specimen | + + | | + + + + + + + | Performing | Address | City/State/Zipcode | Phone Number | | Organization | | | | + + + + + | [facility] | [address] | [place] [address] | [phone] | + + + + + Protime INR (07/19/2020 4:03 PM PDT) + + + + + + | Component | Value | Ref Range | Performed | Pathologist | | | | | At | Signature | + + + + + + | INR | 2.6Comment: REFERENCE | | [facility] | | | | RANGE:0.9 - 1.2 [...] | | | | | performed at [facility] | | | | | | [address];[place] | | | | | | [address] | | | | + + + + + + + + | Specimen | + + | Blood | + + + + + + + | Performing | Address | City/State/Zipcode | Phone Number | | Organization | | | | + + + + + | [facility] | [address] | [place] [address] | [phone] | + + + + + [facility] [...] [address];[place] [address] | | | | + + + + + + + + | Specimen | + + | Blood | + + + + + + + | Performing | Address | City/State/Zipcode | Phone Number | | Organization | | | | + + + + + | [facility] | [address] | [place] [address] | [phone] | + + + + + POC Glucose (07/19/2020 1:11 PM PDT) + + + + + + | Component | Value | Ref Range | Performed | Pathologist | | | | | At | Signature | + + + + + + | Glucose, | 102 (H)Comment: Testing | 65 - 99 mg/dL | [facility] | | | POC | performed at [facility] [facility] | | LABORATORY | | | | [address];[place] | | | | | | [address] | | | | + + + + + + + + | Specimen | + + | | + + + + + + + | Performing | Address | City/State/Zipcode | Phone Number | | Organization | | | | + + + + + | [facility] | [address] | [place] [address] | [phone] | + + + + + Procalcitonin [...] | | | | | | at [facility];[address] [place] [address] | | | | | | Blvd;[place] [address] | | | | + + + + + + + + | Specimen | + + | Blood | + + + + + + + | Performing | Address | City/State/Zipcode | Phone Number | | Organization | | | | + + + + + | [facility] | [address] | [place] [address] | [phone] | + + + + + Basic [...] 36 (L)Comment: GFR <60: | >60 | [facility] | | | GFR | CHRONIC KIDNEY [...] | | | | | performed at [facility];[address] | | | | | | [facility];[place], [place] | | | | | | [address] | | | | + + + + + + + + | Specimen | + + | Blood | + + + + + + + | Performing | Address | City/State/Zipcode | Phone Number | | Organization | | | | + + + + + | [facility] | [address] | [place] [address] | [phone] | + + + + + Phosphorus (07/19/2020 4:23 AM PDT) + + + + + + | Component | Value | Ref Range | Performed | Pathologist | | | | | At | Signature | + + + + + + | Phosphorus | 2.4Comment: Testing | 2.3 - 4.8 mg/dL | [facility] | | | | performed at [facility];[address] | | LABORATORY | | | | [address];[place], [place] | | | | | | [address] | | | | + + + + + + + + | Specimen | + + | Blood | + + + + + + + | Performing | Address | City/State/Zipcode | Phone Number | | Organization | | | | + + + + + | [facility] | [address] | [place] [address] | [phone] | + + + + + Magnesium (07/19/2020 4:23 AM PDT) + + + + + + | Component | Value | Ref Range | Performed | Pathologist | | | | | At | Signature | + + + + + + | Magnesium | 2.1Comment: Testing | 1.7 - 2.4 mg/dL | [facility] | | | | performed at [facility];[address] | | LABORATORY | | | | [facility];[place], [place] | | | | | | [address] | | | | + + + + + + + + | Specimen | + + | Blood | + + + + + + + | Performing | Address | City/State/Zipcode | Phone Number | | Organization | | | | + + + + + | [facility] | [address] | [place] [address] | [phone] | + + + + + CBC [...] 0.03Comment: Testing | 0.00 - 0.10 | [facility] | | | Absolute | performed at [facility];[address] | K/uL | LABORATORY | | | | [address];[place] | | | | | | [address] | | | | + + + + + + + + | Specimen | + + | Blood | + + + + + + + | Performing | Address | City/State/Zipcode | Phone Number | | Organization | | | | + + + + + | [facility] | [address] | [place] [address] | [phone] | + + + + + CK-MB [...] | | | | | [address];[place] [address] | | | | + + + + + + + + | Specimen | + + | | + + + + + + + | Performing | Address | City/State/Zipcode | Phone Number | | Organization | | | | + + + + + | [facility] | [address] | [place] [address] | [phone] | + + + + + CK Total (07/19/2020 4:22 AM PDT) + + + + + + | Component | Value | Ref Range | Performed | Pathologist | | | | | At | Signature | + + + + + + | CK TOTAL | 2,174 (H)Comment: | 55 - 400 U/L | [facility] | | | | Testing performed at | | LABORATORY | | | | [facility];[address] | | | | | | [address];[place] [address] | | | | + + + + + + + + | Specimen | + + | Blood | + + + + + + + | Performing | Address | City/State/Zipcode | Phone Number | | Organization | | | | + + + + + | [facility] | [address] | [place] [address] | [phone] | + + + + + Troponin [...] | | | | CALLED TO 10RP UNDER TRIMMER | | | | | | GITA PAREKH 0524 BY | | | | | | [facility] BACK RESULTS | | | | | | VERIFIEDTesting | | | | | | performed at [facility];[address] | | | | | | [address];[place] | | | | | | [address] | | | | + + + + + + + + | Specimen | + + | Blood | + + + + + + + | Performing | Address | City/State/Zipcode | Phone Number | | Organization | | | | + + + + + | [facility] | [address] | [place] [address] | [phone] | + + + + + POC [...] | | | POC | performed at [facility];[address] | | LABORATORY | | | | [address];[place] | | | | | | [address] | | | | + + + + + + + + | Specimen | + + | | + + + + + + + | Performing | Address | City/State/Zipcode | Phone Number | | Organization | | | | + + + + + | [facility] | [address] | [place] [address] | [phone] | + + + + + POC [...] | | | | | performed at [facility];[address] | | | | | | [address];[place], [place] | | | | | | [address] | | | | + + + + + + + + | Specimen | + + | | + + + + + + + | Performing | Address | City/State/Zipcode | Phone Number | | Organization | | | | + + + + + | [facility] | [address] | [place] [address] | [phone] | + + + + + RAPID STREP SWAB COLLECTION (07/18/2020 8:06 PM PDT) + + + + + + | Component | Value | Ref Range | Performed | Pathologist | | | | | At | Signature | + + + + + + | Collection | THROATComment: Testing | | [facility] | | | | performed at [facility] | | LABORATORY | | | | [address];[place] | | | | | | [address] | | | | + + + + + + + + | Specimen | + + | | + + + + + + + | Performing | Address | City/State/Zipcode | Phone Number | | Organization | | | | + + + + + | [facility] | [address] | [place] [address] | [phone] | + + + + + XR [...] Procedure Note | + + | Rocky, [id number] - 07/18/2020 7:35 PM PDT | | [...] Procedure Note | + + | Rocky, [id number] - 07/18/2020 7:37 PM PDT | | [...] | | | | | performed at [facility];[address] | | | | | | [address];[place], [place] | | | | | | [address] | | | | + + + + + + + + | Specimen | + + | Blood | + + + + + + + | Performing | Address | City/State/Zipcode | Phone Number | | Organization | | | | + + + + + | [facility] | [address] | [place] [address] | [phone] | + + + + + Culture, [...] | KR | | | Requests | [facility];[address] | | LABORATORY | | | | [address]vd;[place] [address] | | | | + + + + + + | Culture | NO GROWTH 6 DAYS | | [facility] | | | | | | LABORATORY | | + + + + + + | Culture | Testing performed at | | [facility] | | | | [facility], [address] [facility] | | LABORATORY | | | | [address] [place], [place] | | | | | | [address]Cslwwbs: Testing | | | | | | performed at [facility], [address] | | | | | | [address] [place], [place] | | | | | | [address] | | | | + + + [...] [facility] | [address] | [place] [address] | [phone] | + + + + + Culture, [...] Special | Testing performed at | | [facility] | | | Requests | [facility];[address] | | LABORATORY | | | | [address];[place] [address] | | | | + + + + + + | Culture | NO GROWTH 6 DAYS | | [facility] | | | | | | LABORATORY | | + + + + + + | Culture | Testing performed at | | [facility] | | | | [facility], [address] [facility] | | LABORATORY | | | | [address], [place], [place] | | | | | | [address]Lvlsdex: Testing | | | | | | performed at [facility], [address] | | | | | | [address], [place], [place] | | | | | | [address] | | | | + + + + + + + + | Specimen | + + | Blood - Peripheral | | blood specimen | | (specimen) | + + + + + + + | Performing | Address | City/State/Zipcode | Phone Number | | Organization | | | | + + + + + | [facility] | [address] | [place] [address] | [phone] | + + + + + CK [...] | | LABORATORY | | | | [facility];[address] | | | | | | [address];[place] [address] | | | | + + + + + + + + | Specimen | + + | Blood | + + + + + + + | Performing | Address | City/State/Zipcode | Phone Number | | Organization | | | | + + + + + | [facility] | [address] | [place] [address] | [phone] | + + + + + Procalcitonin [...] | | | | | | at [facility];[address] [facility] | | | | | | [address];[place] [address] | | | | + + + + + + + + | Specimen | + + | | + + + + + + + | Performing | Address | City/State/Zipcode | Phone Number | | Organization | | | | + + + + + | [facility] | [address] | [place] [address] | [phone] | + + + + + PTT (07/18/2020 5:37 PM PDT) + + + + + + | Component | Value | Ref Range | Performed | Pathologist | | | | | At | Signature | + + + + + + | PTT | 54 (H)Comment: Testing | 23 - 32 seconds | [facility] | | | | performed at [facility];[address] | | LABORATORY | | | | [address] [facility];[place], [place] | | | | | | [address] | | | | + + + + + + + + | Specimen | + + | | + + + + + + + | Performing | Address | City/State/Zipcode | Phone Number | | Organization | | | | + + + + + | [facility] | [address] | [place] [address] | [phone] | + + + + + Protime INR (07/18/2020 5:37 PM PDT) + + + + + + | Component | Value | Ref Range | Performed | Pathologist | | | | | At | Signature | + + + + + + | INR | 2.6Comment: REFERENCE | | [facility] | | | | RANGE:0.9 - 1.2 [...] | | | | | performed at [facility];[address] | | | | | | [address];[place], [place] | | | | | | [address] | | | | + + + + + + + + | Specimen | + + | Blood | + + + + + + + | Performing | Address | City/State/Zipcode | Phone Number | | Organization | | | | + + + + + | [facility] | [address] | [place] [address] | [phone] | + + + + + Phosphorus (07/18/2020 5:37 PM PDT) + + + + + + | Component | Value | Ref Range | Performed | Pathologist | | | | | At | Signature | + + + + + + | Phosphorus | 2.5Comment: Testing | 2.3 - 4.8 mg/dL | [facility] | | | | performed at [facility] | | LABORATORY | | | | [address];[place], [place] | | | | | | [address] | | | | + + + + + + + + | Specimen | + + | Blood | + + + + + + + | Performing | Address | City/State/Zipcode | Phone Number | | Organization | | | | + + + + + | [facility] | [address] | [place] [address] | [phone] | + + + + + Magnesium (07/18/2020 5:37 PM PDT) + + + + + + | Component | Value | Ref Range | Performed | Pathologist | | | | | At | Signature | + + + + + + | Magnesium | 1.9Comment: Testing | 1.7 - 2.4 mg/dL | [facility] | | | | performed at [facility];[address] | | LABORATORY | | | | [address];[place] | | | | | | [address] | | | | + + + + + + + + | Specimen | + + | Blood | + + + + + + + | Performing | Address | City/State/Zipcode | Phone Number | | Organization | | | | + + + + + | [facility] | [address] | [place] [address] | [phone] | + + + + + CBC [...] | | | Absolute | performed at [facility];[address] | [address]/u[address] | LABORATORY | | | | [facility];[place], [place] | | | | | | [address] | | | | + + + + + + + + | Specimen | + + | Blood | + + + + + + + | Performing | Address | City/State/Zipcode | Phone Number | | Organization | | | | + + + + + | [facility] | [address] | [place] [address] | [phone] | + + + + + Comprehensive [...] | | | | | performed at [facility];[address] | | | | | | [facility];[place], [place] | | | | | | [address] | | | | + + + + + + + + | Specimen | + + | Blood | + + + + + + + | Performing | Address | City/State/Zipcode | Phone Number | | Organization | | | | + + + + + | [facility] | [address] | [place] [address] | [phone] | + + + + + CK-MB [...] at | | | | | | [facility];[address] | | | | | | [address];[place] [address] | | | | + + + + + + + + | Specimen | + + | Blood | + + + + + + + | Performing | Address | City/State/Zipcode | Phone Number | | Organization | | | | + + + + + | [facility] | [address] | [place] [address] | [phone] | + + + + + B [...] | | LABORATORY | | | | [facility];[address] | | | | | | [address];[place] [address] | | | | + + + + + + + + | Specimen | + + | Blood | + + + + + + + | Performing | Address | City/State/Zipcode | Phone Number | | Organization | | | | + + + + + | [facility] | [address] | [place] [address] | [phone] | + + + + + Troponin [...] at | | | | | | [facility];[address] [facility] | | | | | | [address];[place] [address] | | | | + + + + + + + + | Specimen | + + | Blood | + + + + + + + | Performing | Address | City/State/Zipcode | Phone Number | | Organization | | | | + + + + + | [facility] | [address] | [place] [address] | [phone] | + + + + + Urinalysis [...] - 1.030 | [facility] | | | [place], | | | LABORATORY | | | [...] | | | | | Urine | Blvd;[place] [address] | | | | + + + [...] | + + + + + | [facility] | [address] | [place] [address] | [phone] | + + + + + Coronavirus (COVID-19) NAAT (07/18/2020 5:10 PM PDT) + + + + + + | Component | Value | Ref Range | Performed | Pathologist | | | | | At | Signature | + + + + + + | SARS-CoV-2, | POSITIVE (A)Comment: | NEG | [facility] | | | NAAT | This test [...] | | | | | performed at [facility] | | | | | | [facility];[place], [place] | | | | | | [address] | | | | + + + + + + + + | Specimen | + + | Tissue - Entire | | nasopharynx (body | | structure) | + + + + + + + | Performing | Address | City/State/Zipcode | Phone Number | | Organization | | | | + + + + + | [facility] | [address] | [place] [address] | [phone] | + + + + + POC [...] | | | POC | performed at [facility];[address] | | LABORATORY | | | | [address];[place], [place] | | | | | | [address] | | | | + + + + + + + + | Specimen | + + | | + + + + + + + | Performing | Address | City/State/Zipcode | Phone Number | | Organization | | | | + + + + + | [facility] | [address] | [place] [address] | [phone] | + + + + + documented in this encounter Visit Diagnoses + + | Diagnosis | + + | Shock (HCC) - Primary Shock, unspecified | + + | 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
--- OUTSIDE RECORDS SUMMARY | ~2020-07-26 | XMS | Encounter Summary ---
Demographics + + + | Address | [address] | | | [place] [address] | + + + | Home Phone | | + + + | Preferred Language | Unknown | + + + | Marital Status | | + + + | Mandaen Affiliation | [phone] | + + + [...] Team Providers + +------+ + | Care Boring Machine Set Up Operator Jig Name | Role | Phone | + [...] ALEX HANDY | | | | | [facility] | [place] [address] | | | | | [address] | [phone] | | | | | [phone] | | | +--------+ + + + [...] : 1940 | | | Performing Physician: óLpez Rothman | | | | | | [...] TR Vmax: | | | 2.03 m/s Public Speaking Teacher: CAROLYN Authenticated by: López Rothman | | [...] cmLVIDd: 5.53 cmLVPWd: 0.81 cmLVOT Area: 3.93 [id number] Diam: 2.23 | | cm%FS: 24.16 %EF(Teich): 47.55 %ESV(Teich): 78.38 mlLVIDs: 4.19 cmSV(Teich): | | 71.06 mlRVIDd: 3.43 cmLVEF MOD A2C: 47.07 %SV MOD A2C: 71.24 mlLVEDV MOD A2C: | | 151.33 mlLVLd A2C: 8.47 cmLVEDV MOD A4C: 149.39 mlLVLd A4C: 8.40 cmLVESV MOD A2C: | | 80.08 mlLVLs A2C: 6.93 cmLAESV(A-L): 51.54 mlLAESV Index (A-L): 24.66 ml/m2LAAs | | A2C: 14.93 [id number] A-L A2C: 40.51 mlLALs A2C: 4.67 cmLAAs A4C: 18.74 [id number] | | A-L A4C: 64.72 mlLALs A4C: 4.60 cmRAAs: 18.61 [id number] A-L: 72.61 mlRAESV MOD: | | 64.47 mlRALs: 4.04 cmTAPSE: 1.97 cmAV maxP.48 mmHgAV meanP.71 mmHgAV | | Vmax: 1.27 m/Nikita Vmean: 0.91 m/Nikita VTI: 27.28 cmAVA Vmax: 2.66 cm2AVA (VTI): | | 2.84 [id number] Vmax: 0.00 cm2/m2AVAI (VTI): 0.00 cm2/m2LVOT maxP.96 mmHgLVOT | | meanP.79 mmHgLVSI Dopp: 37.08 ml/m2LVSV Dopp: 77.51 mlLVOT Vmax: 0.86 | | m/sLVOT Vmean: 0.64 m/sLVOT VTI: 19.68 cmMV A Tramaine: 0.83 m/sMV DecT: 148.14 msMV | | E Tramaine: 0.67 m/sMV E/A Ratio: 0.81MV PHT: 42.96 msMVA By PHT: 5.12 [id number] e': | | 0.05 m/sSeptal E/e': 11.72Lateral e': 0.10 m/sLateral E/e': 6.21RAP: 5 | | mmHgRVSP: 21.63 mmHgTR maxP.63 mmHgTR Vmax: 2.03 m/s Public Speaking Teacher: | | DBSAuthenticated by: López [facility] Date/Time: 08-07-2017 17:18:39 IMPRESSION: | | 1. [...] |TR Vmax: 2.03 m/s | | | |Public Speaking Teacher: DBS | |Authenticated by: López Rothman | [...]
--- OUTSIDE RECORDS SUMMARY | ~2020-07-26 | XMS | Encounter Summary ---
Demographics + + + | Address | [address] | | | [place] [address] | + + + | Home Phone [...] + + + | Author | [facility] | + + + | Organization | [facility] | + + + | Address | Unknown | + + + | Phone | Unavailable | + + + Support + + +---------+ + | Name | Relationship | Address | Phone | + + +---------+ + | Beth Mas | ECON | Unknown | | + + +---------+ + Care Team Providers + +------+ + | Care School Commissioner Name | Role | Phone | + [...] PADMINI Jerome | | | | | [address] | [address] | | | | | Loop Physician's | [place], [place] | | | | | [place], [facility] floor | [address] | | | | | [place], [place] | [phone] | | | | | [address] | | | | | | [phone] | | | +--------+ + + + [...]
--- OUTSIDE RECORDS SUMMARY | ~2020-07-26 | XMS | Encounter Summary ---
Demographics + + + | Address | [address] | | | [place] [address] | + + + | Home Phone [...] Team Providers + +------+ + | Care Therapist Radiation Name | Role | Phone | + [...] Unknown | | | | | [place], [place] | | | | | | [address] | (Fax) | | | | | [phone] | | | +--------+ + + + [...] 09/03/131419 Date of Service: 09/03/131419 Status: Signed Customer Care Coordinator: Manasa Andrade RN (Registered Nurse) Uses abimael [...] | | Testing performed at [facility];[address] [place] [address];[place] [address] MRSA PCR | | | NEGATIVE Testing performed at | | | [facility];[address] [place] [address];[place] [address] | | + + + + +---------+ + + | Performing | Address | City/State/Zipcode | Phone Number | | Organization | | | | + +---------+ + + | EXTERNAL LAB | | | | + +---------+ + + documented in this encounter Visit Diagnoses Not on filedocumented in this encounter"
--- OUTSIDE RECORDS SUMMARY | ~2020-07-26 | XMS | Encounter Summary ---
Demographics + + + | Address | [address] | | | [place] [address] | + + + | Home Phone [...] Team Providers + +------+ + | Care Tanbark Laborer Name | Role | Phone | [...] ALEX HANDY | | | | | [facility] | [place] [address] | | | | | [address] | [phone] | | | | | [phone] | | | +--------+ + + + [...] TR Vmax: | | | 2.03 m/s Credit Collection Specialist: CAROLYN Authenticated by: López Rothman | | [...] cmLVIDd: 5.53 cmLVPWd: 0.81 cmLVOT Area: 3.93 [id number] Diam: 2.23 | | cm%FS: 24.16 %EF(Teich): 47.55 %ESV(Teich): 78.38 mlLVIDs: 4.19 cmSV(Teich): | | 71.06 mlRVIDd: 3.43 cmLVEF MOD A2C: 47.07 %SV MOD A2C: 71.24 mlLVEDV MOD A2C: | | 151.33 mlLVLd A2C: 8.47 cmLVEDV MOD A4C: 149.39 mlLVLd A4C: 8.40 cmLVESV MOD A2C: | | 80.08 mlLVLs A2C: 6.93 cmLAESV(A-L): 51.54 mlLAESV Index (A-L): 24.66 ml/m2LAAs | | A2C: 14.93 [id number] A-L A2C: 40.51 mlLALs A2C: 4.67 cmLAAs A4C: 18.74 [id number] | | A-L A4C: 64.72 mlLALs A4C: 4.60 cmRAAs: 18.61 rl0WSUUO A-L: 72.61 mlRAESV MOD: | | 64.47 mlRALs: 4.04 cmTAPSE: 1.97 cmAV maxP.48 mmHgAV meanP.71 mmHgAV | | Vmax: 1.27 m/Nikita Vmean: 0.91 m/Nikita VTI: 27.28 cmAVA Vmax: 2.66 cm2AVA (VTI): | | 2.84 ty3AZXB Vmax: 0.00 cm2/m2AVAI (VTI): 0.00 cm2/m2LVOT maxP.96 mmHgLVOT | | meanP.79 mmHgLVSI Dopp: 37.08 ml/m2LVSV Dopp: 77.51 mlLVOT Vmax: 0.86 | | m/sLVOT Vmean: 0.64 m/sLVOT VTI: 19.68 cmMV A Tramaine: 0.83 m/sMV DecT: 148.14 msMV | | E Tramaine: 0.67 m/sMV E/A Ratio: 0.81MV PHT: 42.96 msMVA By PHT: 5.12 mx5Sovdbj e': | | 0.05 m/sSeptal E/e': 11.72Lateral e': 0.10 m/sLateral E/e': 6.21RAP: 5 | | mmHgRVSP: 21.63 mmHgTR maxP.63 mmHgTR Vmax: 2.03 m/s Credit Collection Specialist: | | DBSAuthenticated by: López [facility] Date/Time: 08-07-2017 17:18:39 IMPRESSION: | | [...] |TR Vmax: 2.03 m/s | | | |Credit Collection Specialist: DBS | |Authenticated by: López Rothman | [...]
--- OUTSIDE RECORDS SUMMARY | ~2020-07-26 | XMS | Encounter Summary ---
Demographics + + + | Address | [address] | | | [place] [address] | + + + | Home Phone | | + + + | Preferred Language | Unknown | + + + | Marital Status | Unknown | + + + | Congregation Affiliation | PRO | + + + [...] Team Providers + +------+ + | Care Condominium Manager Name | Role | Phone | [...] 2017 | | [facility] | [address] | | | | | [address] | [address] | | | | | Loop Physician's | [place], [place] | | | | | [place], [facility] floor | [address] | | | | | [place], [place] | [phone] | | | | | [address] | | | | | | [phone] | | | +--------+ + + + [...] PSTDr. Dimitri Sidhu, pt's de ntist in [place], called stating pt is having burning sensation in his mouth. Dr. Sidhu i nquired about which medication should be presciribd that won't interfere with Keflex. He can be reached at: [phone] [id number] signed by Layne Huang at 10/07/2018 5:01 PM PSTdocumented in this encounter Plan of Treatment Not on filedocumented as of this encounter Visit Diagnoses Not on filedocumented in this encounter"
--- OUTSIDE RECORDS SUMMARY | ~2020-07-26 | XMS | Encounter Summary ---
Demographics + + + | Address | [address] | | | [place] [address] | + + + | Home Phone [...] + + | Author | [facility] | | | and [place] | + + + | Organization | [facility] | | [...] Team Providers + +------+ + | Care Dry Placer Machine Operator Name | Role | Phone [...] | [address] | [address] [facility] | | | | | [address] | [address] | | | | | [address] | [address] | | | | | [phone] | | | +--------+ + + + [...] - 1.030 | EXTERNAL | | | [place], | | | LAB | | | [...]
--- OUTSIDE RECORDS SUMMARY | ~2020-07-26 | XMS | Encounter Summary ---
Demographics + + + | Address | [address] | | | [place] [address] | + + + | Home Phone [...] Team Providers + +------+ + | Care Seed Expert Name | Role | Phone | [...] | | | | and | | [address] | | | | | inflammatory | | [address] | | | | | reaction | | [address] [place], | | | | | due to | | [place] | | | | | internal | | [address] | | | | | right knee | | Phone: | | | | | prosthesis, | | [phone] | | | | | initial | | Fax: | | | | | encounter | | [phone] | +--------+--------+ + + + + Encounter [...] | | | Loop Physician's | [facility] [place] | subsequent encounter | | | | [place], 3rd floor | [address] | (Primary Dx); Long | | | | [place], [place] | [phone] | term (current) use | | | | [address] | | of antibiotics | | | | [phone] | | | +--------+---------+ + + + [...] Take by mouth., Disp: , Rfl: antiox. no.29-[id number]-crd (I-CAPS) 280-10-2 mg oral capsule, Take 1 [...] locally Abril Shields MD Infectious Diseases [phone] documented in this encounter Plan of Treatment Not on filedocumented as of this encounter Visit Diagnoses + + | Diagnosis | + + | Infection associated with internal right knee prosthesis, subsequent encounter - | | Primary | + + | salvage determiner (current) use of antibiotics | + + documented in this encounter
--- OUTSIDE RECORDS SUMMARY | ~2020-07-26 | XMS | Encounter Summary ---
Demographics + + + | Address | [address] | | | [place] [address] | + + + | Home Phone [...] Team Providers + +------+ + | Care Retail Store Assistant Name | Role | Phone | [...]
--- OUTSIDE RECORDS SUMMARY | ~2020-07-26 | XMS | Encounter Summary ---
Demographics + + + | Address | [address] | | | [place] [address] | + + + | Home Phone [...] Providers + +------+ + | Care Air Moving Technician Name | Role | Phone | + +------+ + | Gilberto Estrada MD | PCP | | + +------+ + Reason for Visit + +--------+ + | Reason | Onset | Comments | | | Date | | + +--------+ + | Lab Results | 06/26/ | | | | 2018 | | + +--------+ + Encounter Details +--------+ + + + + | Date | Type | Department | Care Team | Description | +--------+ + + + + | 06/26/ | Telephone | Infectious | Abril Shields, | Lab Results | | 2017 | | Diseases at [facility] | MD [address] | | | | | [address] | [address] | | | | | Loop Physician's | [place], [place] | | | | | [place], [facility] floor | [address] | | | | | [place], [place] | [phone] | | | | | [address] | | | | | | [phone] | | | +--------+ + + + [...] encounter Miscellaneous Notes Telephone Encounter - Jaye Winchester, FLY - 06/30/2018 2:09 PM [facility]TCalled [facility] and was informed that the patient left their facility on 06/26/18 because he met h is PT needs. We were not notified. Pt is now under the care of [facility] P [phone] F [phone] and [facility] P [phone] F [phone]. I called and spoke to Joslyn at [facility]. She stated that the patient had his PICC dress ing changed today but that they have not drawn labs as they do not have orders yet. She also said that [facility] is providing the IV cefazolin. I called Diana and spoke to Jaquelin, who said that this patient is not on service with them. She recommended calling the [facility] office in [place]. I called and spoke to Rosalind, pharmacist at [place] office who confirmed that they have the p atient on their service. Abx/PMSO have been faxed to both [facility] and [facility]. Jaye Winchester RN elephone Encounter - Saige Cottrell Ma - 06/26/2018 5:01 PM PDTNotification: unable to obtain OPAT labs from [facility] after multiple attempts Vendor: [facility] Labs that have not been received: weekly CBC with Differential and CMP Attempt 1: date: 06/26/18, time: 4:58pm, contact name/title: FLY Jerez, conversation detail s: Called and spoke with Nurse requesting labs. She stated the last labs they got was a Pro time done on 06/23. She did not have any record of any other labs being done. I informed her that one of our OPAT RN's would call next week to discuss collection of weekly labs. Sending to OPAT RNs for escalation. documented in this encou nter Plan of Treatment Not on filedocumented as of this encounter Visit Diagnoses + + | Diagnosis | + + | Infection associated with internal right knee prosthesis, subsequent encounter - | | Primary | + + documented in this encounter"
--- OUTSIDE RECORDS SUMMARY | ~2020-07-26 | XMS | Encounter Summary ---
Demographics + + + | Address | [address] | | | [place] [address] | + + + | Home Phone [...] Team Providers + +------+ + | Care Women'S Soccer Coach Name | Role | Phone | + [...] [address] | | | | | [address] | [address] | | | | | Loop Physician's | [place], [place] | | | | | [place], [facility] floor | [address] | | | | | [place], [place] | [phone] | | | | | [address] | | | | | | [phone] | | | +--------+ + + + [...]
--- OUTSIDE RECORDS SUMMARY | ~2020-07-26 | XMS | Encounter Summary ---
Demographics + + + | Address | [address] | | | [place] [address] | + + + | Home Phone [...] Team Providers + +------+ + | Care Named Account Executive Name | Role | Phone | [...] | | | 2018 | | [address] | [address] [facility] | | | | | [place] | [address] | | | | | [address] | [address] | | | | | [phone] | | | +--------+ + + + [...] - 1.030 | EXTERNAL | | | [place], | | | LAB | | | [...]
--- OUTSIDE RECORDS SUMMARY | ~2020-07-26 | XMS | Encounter Summary ---
Demographics + + + | Address | [address] | | | [place] [address] | + + + | Home Phone [...] Team Providers + +------+ + | Care Professor Of Art History Name | Role | Phone | + [...] | | | | Loop Physician's | [place], [place] | | | | | [place], [facility] floor | [address] | | | | | [place], [place] | [phone] | | | | | [address] | | | | | | [phone] | | | +--------+ + + + [...] that the patient has been admitted to [facility] as of yesterday. He is in room [...]
--- OUTSIDE RECORDS SUMMARY | ~2020-07-26 | XMS | Encounter Summary ---
Demographics + + + | Address | [address] | | | [place] [address] | + + + | Home Phone | | + + + | Preferred Language | Unknown | + + + | Marital Status | | + + + | Congregational Affiliation | 1077 | + + + | Race | White | + + + | Ethnic Group | Not or | + + + Author + + + | Author | [facility] | | | and [place] | + + + | Organization | [facility] | | | [...] Team Providers + +------+ + | Care Production Operator Name | Role | Phone | + +------+ + PCP | Unavailable | + +------+ + Encounter Details +--------+ + + + + | Date | Type | Department | Care Team | Description | +--------+ + + + + | 09/12/ | Hospital [facility] | Olaf Nicole | | | 1997 - | Encounter | [facility] MED [facility] | MD [address] | | | | | CARDIAC TELEMETRY | [address] | | | 09/14/ | | [address] | [place] [address] | | | 1999 | | [place] | [phone] | | | | | [address] | | | | | | [phone] | | | +--------+ + + + [...]
--- OUTSIDE RECORDS SUMMARY | ~2020-07-26 | XMS | Encounter Summary ---
Demographics + + + | Address | [address] | | | [place] [address] | + + + | Home Phone [...] + + + | Author | [facility] | | | and [place] | + + + | Organization | [facility] | | | [...] Team Providers + +------+ + | Care Chemistry Lecturer Name | Role | Phone | + [...] | | | | | | | [place] | | | | | | | ESOPHAGOGAST | | | | | | | RODUODENOSCO | | | | | | | PY TRANSORAL | | | | | | | DIAGNOSTIC | | | | | | | [place] EGD | | | | | | | BALLOON | | | | | | | DILATION | | | | | | | ESOPHAGUS | | | | | | | <30 MM DIAM | | | | | | | [place] | | | | | | | [...] + + | 07/31/ | Hospital | [facility] | Willow Colin MD | | | 2017 | Encounter | MED CTR MP INTRA OP | [address] | | | | | [address] | [address] [place], | | | | | [place] | [place] [address] | | | | | [address] | [phone] | | | | | [phone] | | | +--------+ + + + [...] fluids. 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 superintendent menagerie omeprazole at [place], [place]. documented in this encounter Medications at [...] Electronically signed Willow Colin MD 07/31/2017 14:06 [facility] 2:1 1 PM PDTOp Note - [...] ST. | [address] | [place] | [phone] | | [facility] | | [address] | | | - LABORATORY | | [...] Negative for Helicobacter pylori with HE stain. [facility]:caw:C2NR GROSS | | | DESCRIPTION: A. [...] technical and professional components were performed by [employer] | | | [employer], [address] [place] [address] | | | (Drug And Alcohol Counselor: Don Morrell D.O.; IA#: [id number]). | | | Diagnostician: Gavin Michaud MD [...] ONCE PRN, Wheezing, | | | Starting [facility] 07/31/17 at 1242, | | | For [...]
--- OUTSIDE RECORDS SUMMARY | ~2020-07-26 | XMS | Encounter Summary ---
Demographics + + + | Address | [address] | | | [place] [address] | + + + | Home Phone [...] Team Providers + +------+ + | Care Drill Rig Operator Name | Role | Phone | + +------+ + PCP | Unavailable | + +------+ + Encounter Details +--------+ + + + + | Date | Type | Department | Care Team | Description | +--------+ + + + + | 09/16/ | Hospital | [facility] | Olaf Nicole | | | 2000 | Encounter | HEART MED CTR | MD [address] | | | | | GENERIC CONV DEPT | [address] | | | | | [address] | [place] [address] | | | | | [place] | [phone] | | | | | [address] | | | | | | [phone] | | | +--------+ + + + [...]
--- OUTSIDE RECORDS SUMMARY | ~2020-07-26 | XMS | Encounter Summary ---
Demographics + + + | Address | [address] | | | [place] [address] | + + + | Home Phone | | + + + | Preferred Language | Unknown | + + + | Marital Status | | + + + | Temple Affiliation | 1077 | + + + [...] Team Providers + +------+ + | Care Commercial Drafter Name | Role | Phone | + [...] | | | | | | | [place] | | | | | | | ESOPHAGOGAST | | | | | | | RODUODENOSCO | | | | | | | PY TRANSORAL | | | | | | | DIAGNOSTIC | | | | | | | [place] EGD | | | | | | | BALLOON | | | | | | | DILATION | | | | | | | ESOPHAGUS | | | | | | | <30 MM DIAM | | | | | | | [place] | | | | | | | [...] + + | 07/31/ | Surgery | [facility] | Willow Colin MD | EGD with Dilation | | 2017 | | MED CTR MP INTRA OP | [address] | | | | | [address] | [address], | | | | | [place], [place] | [place] [address] | | | | | [address] | [phone] | | | | | [phone] | | | +--------+---------+ + + + [...] fluids. 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 documented in this encounter Medications at [...] Electronically signed Willow Colin MD 07/31/2017 14:06 [facility] 2:1 1 PM PDTOp Note - Willow [...] ST. | [address] | [place], [place] | [phone] | | [facility] | | [address] | | | - LABORATORY | | [...] Negative for Helicobacter pylori with HE stain. [facility]:caw:C2NR GROSS | | | DESCRIPTION: A. [...] technical and professional components were performed by [employer] | | | [employer], [address] [place] [address] | | | (Executive Talent Acquisition Consultant: Don Morrell D.O.; IA#: [id number]). | | | Diagnostician: Gavin Michaud MD [...]
--- OUTSIDE RECORDS SUMMARY | ~2020-07-26 | XMS | Encounter Summary ---
Demographics + + + | Address | [address] | | | [place] [address] | + + + | Home Phone [...] Team Providers + +------+ + | Care Smoking Pipes Cleaner Name | Role | Phone | [...] | | | | | | PLE [place] EGD | | | | | [...] + + | 02/10/ | Hospital | [facility] | Willow Colin MD | | | 2019 | Encounter | MED CTR MP INTRA OP | [address] | | | | | [address] | [address] [place], | | | | | [place] | [place] [address] | | | | | [address] | [phone] | | | | | [phone] | | | +--------+ + + + [...] You can't be awakened Date Last Reviewed: 08/13/201619998875-8005 [employer] [address] [place] [address]. All righ ts reserved. This information is [...] you take. This includes prescription medicines, o dzn-rgq-ayajtsi medicines, herbs, vitamins, and other supplements. Be [...] icine to relax you. The procedure takes [id number]. It does not cause trouble breath ing. [...] Black, tarry, or bloodystools Date Last Reviewed: 04/26/201619990785-7692 [employer] [address] [place] [address], [place] [address]. All righ ts reserved. This information is [...] prescription medicines Herbs, vitamins, and other supplements Qanb-ioe-dgdgmpa medicines such as aspirin or ibuprofen Street [...] heart or lung disease Date Last Reviewed: 05/27/201719990913-4258 [employer] [address] [place] [address]. All righ ts reserved. This information is [...] | 0 | 07/03/20 | | | (SERA) 10 mEq | | | | 18 | 0 | | CR tablet | | | | | | + + + +---------+ + + | potassium chloride | | | 0 | 01/13/20 | | | (CATHYOR-CON) 10 MEQ | | | | 19 [...] by: Willow Colin MD, 02/10/2019 13:00 [facility] at [...] Raciel Mccurdy | 0.9 - 1.2 | [facility] | | | | notified of result. | | [facility] | | | | | | CORE [...] + + + | [address] | [address] [place] [address] | [place] [address] | [phone] | | [facility] | | | [...] (H) | 70 - 109 mg/dL | [facility] | | | POC | | | [...] + | [facility] | [address] | [place] | [phone] | | [facility] | | [address] | | | - LABORATORY | | | | + + + + + Surgical Pathology Exam (02/10/2019 12:00 AM PDT) + + | Specimen | + + | | + + + + + | Narrative | Performed At | + + + | SPECIMEN(S): A GASTRIC BIOPSY SPECIMEN SOURCE: A. GASTRIC | [place] [facility] | | BIOPSY CLINICAL HISTORY: R13.10 [...] technical and professional components were performed by [employer] | | | [employer], [address] [place] [address] | | | (Supervisor Crack Off: Don Morrell D.O.; CLIA#: [id number]). | | | Diagnostician: Gely Cerna MD [...]
--- OUTSIDE RECORDS SUMMARY | ~2020-07-26 | XMS | Encounter Summary ---
Demographics + + + | Address | [address] | | | [place] [address] | + + + | Home Phone [...] Team Providers + +------+ + | Care Program Instructor Name | Role | Phone | [...] | | | | Loop Physician's | [place], [place] | | | | | [address], 3rd floor | [address] | | | | | [place], [place] | [phone] | | | | | [address] | | | | | | [phone] | | | +--------+ + + + [...] Jaye Winchester RN - 06/24/2018 9:43 AM [facility] check in - Transitional Care Management Note ASSESSMENT Spoke with nurse Aguilera at [facility] at [phone]. Verified fax number: [phone] She stated that infusions of Cefazolin 2gm [...] updated lab orders to include CRP to [phone]. NURSING OUTCOME EVALUATION Previous nursing concern(s): no [...] completed without provider involvement Jaye Winchester RN [facility] INFECTIOUS DISEASE [facility] INFECTIOUS DISEASES AT [facility] 3RD FLOOR [address] [facility] [place] [address] documented in this en counter Plan of Treatment Not on filedocumented as of this encounter Visit Diagnoses Not on filedocumented in this encounter"
--- OUTSIDE RECORDS SUMMARY | ~2020-07-26 | XMS | Encounter Summary ---
Demographics + + + | Address | [address] | | | [place] [address] | + + + | Home Phone [...] Team Providers + +------+ + | Care Chili Powder Mixer Name | Role | Phone | [...] | 2018 | Event | [address] [facility] | [address] | | | | | Jr [facility] | [facility] | | | | | Hospital Admitting | [place], [place] | | | | | Desk Located on the | [address] | | | | | 9th floor | [phone] | | | | | [place], [place] | | | | | | [address] | | | +--------+ + + + [...]
--- OUTSIDE RECORDS SUMMARY | ~2020-07-26 | XMS | Encounter Summary ---
Demographics + + + | Address | [address] | | | [place] [address] | + + + | Home Phone [...] Team Providers + +------+ + | Care Field Examiner Name | Role | Phone | + +------+ + PCP | Unavailable | + +------+ + Encounter Details +--------+ + + + + | Date | Type | Department | Care Team | Description | +--------+ + + + + | 05/02/ | [facility] | Olaf Nicole | | | 1998 - | Encounter | HEART MED CTR | [address] | | | | | CARDIAC TRANSPLANT | [address] | | | 05/03/ | | [address] | [place] [address] | | | 2000 | | [place] | [phone] | | | | | [address] | | | | | | [phone] | | | +--------+ + + + [...]
--- OUTSIDE RECORDS SUMMARY | ~2020-07-26 | XMS | Encounter Summary ---
Demographics + + + | Address | [address] | | | [place] [address] | + + + | Home Phone [...] Team Providers + +------+ + | Care Ore Digger Name | Role | Phone | [...] [address] | | | | | [address] | [address] | | | | | Loop Physician's | [place], [place] | | | | | [place], [facility] floor | [address] | | | | | [place], [place] | [phone] | | | | | [address] | | | | | | [phone] | | | +--------+ + + + [...]
--- OUTSIDE RECORDS SUMMARY | ~2020-07-26 | XMS | Encounter Summary ---
Demographics + + + | Address | [address] | | | [place] [address] | + + + | Home Phone [...] Team Providers + +------+ + | Care Extruding Press Adjuster Name | Role | Phone | + +------+ + | Gilberto Estrada MD | PCP | | + +------+ + Encounter Details +--------+ + + + + | Date | Type | Department | Care Team | Description | +--------+ + + + + | 08/18/ | Hospital | Radiology/Imaging | [place], | | | 2017 | Encounter | at [facility] | [address] | | | | | [address] | [place], [place] | | | | | [facility] [address] | [address] | | | | | [place], [place] | [phone] | | | | | [address] | | | | | | [phone] | | | +--------+ + + + [...] | | 0 | | | | no.[id number]-[id number]-pbz | mouth once daily. | | | [...]
--- OUTSIDE RECORDS SUMMARY | ~2020-07-26 | XMS | Encounter Summary ---
Demographics + + + | Address | [address] | | | [place] [address] | + + + | Home Phone [...] + + + | Author | [facility] | | | and [place] | + + + | Organization | [facility] | | [...] Team Providers + +------+ + | Care Branch Credit Counselor Name | Role | Phone | + +------+ + PCP | Unavailable | + +------+ + Encounter Details +--------+ + + + + | Date | Type | Department | Care Team | Description | +--------+ + + + + | 10/24/ | Hospital | [facility] | Conversion | [facility] ([facility]) | | 2016 - | Encounter | MEDICAL CENTER | Transaction, | | | | | CLINICAL DECISION | Provider Unknown | | | 10/25/ | | [address] [facility] | | | | 2016 | | [place] | | | | | | [address] | Robel Ricci Ken | | | | | [phone] | MD [address] | | | | | | [address] | | | | | | [place] [address] | | | | | | [phone] | | | | | | | [...] 1742 Date of Service: 10/25/16956 Status: Signed Health Information Director: Mikal Ha MD (Physician) [facility] Service: Cardiology Discharge Summary Date of Admission: [...] Date of Service: 10/24/16 1631 Status: Signed Health Information Director: Ariana Johnson RN (Registered Nurse) Arm sling applied to left arm. docume nted in this encounter H&P Notes Mikal Ha - 10/24/2016 1:01 PM PST H&P by Mikal Ha MD at 10/24/16 1301 Author: Mikal Ha MD Service: Cardiology Author Type: Physician Filed: 10/24/16 1301 Date of Service: 10/24/16 1301 Status: Signed Health Information Director: Mikal Ha MD (Physician) [facility] Service: Cardiology Pre-Operative History & Physical Interval [...] mild distal inferior-apical ischemia, LVEF 53%. 14-Day Chief Deputy Coroner, 10/10/2016: sinus rhythm, with frequent PVC's, no VT, however, 1st degree AVB, 2nd degree AVB (Type 1 and 2), 3.5sec asystole, bundle branch block. 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 Essential hypertension Hypertension, controlled, continue current [...] topically 2 (two) times daily as needed. Hancock-3 Fatty Acids (FISH OIL) 1200 MG CAPS [...] Date of Service: 10/25/16 1027 Status: Signed Health Information Director: Amy Broderick RN (Registered Nurse) Daily care [...] 10/24/162316 Date of Service: 10/24/162316 Status: Signed Health Information Director: Erick Ramos RN (Registered Nurse) No falls [...] 10/24/162315 Date of Service: 10/24/162315 Status: Signed Health Information Director: Erick Ramos RN (Registered Nurse) Daily care [...] | | | Fingerstick | performed at [facility];[address] | | LAB | | | | [address];[place], [place] | | | | | | [address] | | | | + + + [...] EXTERNAL LAB | | Testing performed at [facility];[address] [place] [address];[place] [address] MRSA PCR | | | NEGATIVE Testing performed at | | | [facility];[address] [place] [address];[place] [address] | | + + + + +---------+ [...] | | | | | performed at [facility] | | | | | | [address];[place], [place] | | | | | | [address] | | | | + + + [...] EXTERNAL | | | | performed at [facility];[address] | K/uL | LAB | | | | [address];[place] | | | | | | [address] | | | | + + + + + + | Non- | 5.01Comment: Testing | 4.20 - 5.70 | EXTERNAL | | | Red Blood | performed at [facility];888 | M/uL | LAB | | | Cells | [address];[place] | | | | | Counted | [address] | | | | + + + + + + | Hemoglobin | 15.0Comment: Testing | 13.2 - 17.0 | EXTERNAL | | | | performed at [facility];888 | g/dL | LAB | | | | [address];[place] | | | | | | [address] | | | | + + + + + + | Hematocrit, | 44.8Comment: Testing | 39.0 - 50.0 % | EXTERNAL | | | POC | performed at [facility];[address] | | LAB | | | | [address];[place] | | | | | | [address] | | | | + + + + + + | MCV | 89.6Comment: Testing | 80.0 - 100.0 fl | EXTERNAL | | | | performed at [facility];[address] | | LAB | | | | [address];[place] | | | | | | [address] | | | | + + + + + + | MCH | 29.9Comment: Testing | 27.0 - 34.0 pg | EXTERNAL | | | | performed at [facility];[address] | | LAB | | | | [address];[place] | | | | | | [address] | | | | + + + + + + | MCHC | 33.4Comment: Testing | 32.0 - 35.5 | EXTERNAL | | | | performed at [facility];888 | g/dL | LAB | | | | [address];[place] | | | | | | [address] | | | | + + + + + + | RDW-CV | 50.3Comment: Testing | 37 - 53 fl | EXTERNAL | | | | performed at [facility];[address] | | LAB | | | | [address];[place] | | | | | | [address] | | | | + + + + + + | Platelet | 111 (L)Comment: Testing | 150 - 400 K/uL | EXTERNAL | | | Count | performed at [facility];[address] | | LAB | | | Plasma | [address];[place] | | | | | | [address] | | | | + + + + + + | MPV | 9.1Comment: Testing | fl | EXTERNAL | | | | performed at [facility];[address] | | LAB | | | | [address];[place] | | | | | | [address] | | | | + + + + + + | Differentia | AUTOMATEDComment: | | EXTERNAL | | | l Type | Testing performed at | | LAB | | | | K[address] | | | [address];[place] [address] | | | | + + + + + + | % Segmented | 63.78Comment: Testing | % | EXTERNAL | | | | performed at [facility];[address] | | LAB | | | Neutrophils | [address];[place] | | | | | | [address] | | | | + + + + + + | % | 24.36Comment: Testing | % | EXTERNAL | | | Lymphocytes | performed at [facility];[address] | | LAB | | | | [address];[place] | | | | | | [address] | | | | + + + + + + | % Monocytes | 8.57Comment: Testing | % | EXTERNAL | | | | performed at [facility];[address] | | LAB | | | | [address];[place] | | | | | | [address] | | | | + + + + + + | % | 2.68Comment: Testing | % | EXTERNAL | | | Eosinophils | performed at [facility];[address] | | LAB | | | | [address];[place] | | | | | | [address] | | | | + + + + + + | % Basophils | 0.61Comment: Testing | % | EXTERNAL | | | | performed at [facility];[address] | | LAB | | | | [address];[place] | | | | | | [address] | | | | + + + + + + | Absolute | 5.19Comment: Testing | 1.90 - 7.40 | EXTERNAL | | | Segmented | performed at [facility];888 | K/uL | LAB | | | Neutrophils | [address];[place] | | | | | | [address] | | | | + + + + + + | Absolute | 1.98Comment: Testing | 1.00 - 3.90 | EXTERNAL | | | Lymphocytes | performed at [facility];888 | K/uL | LAB | | | | [address];[place] | | | | | | [address] | | | | + + + + + + | Absolute | 0.70Comment: Testing | 0.00 - 0.80 | EXTERNAL | | | Monocytes | performed at [facility];888 | K/uL | LAB | | | | [address];[place] | | | | | | [address] | | | | + + + + + + | Absolute | 0.22Comment: Testing | 0.00 - 0.50 | EXTERNAL | | | Eosinophils | performed at [facility];888 | K/uL | LAB | | | | [address];[place] | | | | | | [address] | | | | + + + + + + | Absolute | 0.05Comment: Testing | 0.00 - 0.10 | EXTERNAL | | | Basophils | performed at [facility];888 | K/uL | LAB | | | | [address];[place] | | | | | | [address] | | | | + + + [...] EXTERNAL | | | | performed at [facility];888 | mmol/L | LAB | | | | [address];[place] | | | | | | [address] | | | | + + + + + + | K | 3.9Comment: Testing | 3.5 - 4.9 | EXTERNAL | | | | performed at [facility];888 | mmol/L | LAB | | | | [address];[place] | | | | | | [address] | | | | + + + + + + | Cl | 103Comment: Testing | 99 - 109 mmol/L | EXTERNAL | | | | performed at [facility];[address] | | LAB | | | | [address];[place] | | | | | | [address] | | | | + + + + + + | CO2 | 32Comment: Testing | 23 - 32 mmol/L | EXTERNAL | | | | performed at [facility];[address] | | LAB | | | | [address];[place] | | | | | | [address] | | | | + + + + + + | Anion Gap | 9Comment: Testing | 5 - 20 mmol/L | EXTERNAL | | | | performed at [facility];[address] | | LAB | | | | [address];[place] | | | | | | [address] | | | | + + + + + + | Glucose, | 121 (H)Comment: Testing | 65 - 99 mg/dL | EXTERNAL | | | Fasting | performed at [facility];[address] | | LAB | | | | [address];[place] | | | | | | [address] | | | | + + + + + + | BUN | 24Comment: Testing | 8 - 25 mg/dL | EXTERNAL | | | | performed at [facility];[address] | | LAB | | | | [address];[place] | | | | | | [address] | | | | + + + + + + | Creatinine | 1.2Comment: Testing | 0.70 - 1.30 | EXTERNAL | | | | performed at [facility];888 | mg/dL | LAB | | | | [address];[place] | | | | | | [address] | | | | + + + + + + | BUN/Creatin | 20Comment: Testing | | EXTERNAL | | | ine Ratio | performed at [facility];[address] | | LAB | | | | [address];[place] | | | | | | [address] | | | | + + + + + + | Calcium | 8.7Comment: Testing | 8.5 - 10.5 | EXTERNAL | | | | performed at [facility];888 | mg/dL | LAB | | | | [address];[place] | | | | | | [address] | | | | + + + [...] | | | | | | at [facility];[address] [place] [address] | | | | | | [facility];[place] [address] | | | | + + + [...]
--- OUTSIDE RECORDS SUMMARY | ~2020-07-26 | XMS | Encounter Summary ---
Demographics + + + | Address | [address] | | | [place] [address] | + + + | Home Phone [...] Team Providers + +------+ + | Care Site Interpreter Name | Role | Phone | + +------+ + | Erin Forrester MD | PCP | | + +------+ + Encounter Details +--------+ + + + + | Date | Type | Department | Care Team | Description | +--------+ + + + + | 10/09/ | Orders Only | [facility] | Robel Ricci | | | 2014 | | CARDIOLOGY [place] | [address] | | | | | [address] | [address] | | | | | [address] | [place] [address] | | | | | [place], [place] | [phone] | | | | | [address] | | | | | | [phone] | | | +--------+ + + + [...] Performed At | + + + | [facility] CARDIOLOGY Nuclear Lexiscan Stress Test History: | [...] [place], Rad Conversion - 06/17/2019 11:57 PM [facility] | | Lexiscan Stress Test History:77 [...]
--- OUTSIDE RECORDS SUMMARY | ~2020-07-26 | XMS | Encounter Summary ---
Demographics + + + | Address | [address] | | | [place] [address] | + + + | Home Phone [...] Team Providers + +------+ + | Care Farm Assistant Name | Role | Phone | + +------+ + | Gilberto Esrtada MD | PCP | | + +------+ [...]
--- OUTSIDE RECORDS SUMMARY | ~2020-07-26 | XMS | Encounter Summary ---
Demographics + + + | Address | [address] | | | [place] [address] | + + + | Home Phone [...] + | Author | [facility] | | | and [place] | + + + | Organization | [facility] | | | [...] Team Providers + +------+ + | Care Sustainability Project Manager Name | Role | Phone | + +------+ + | Erin Forrester MD | PCP | | + +------+ + Encounter Details +--------+ + + + + | Date | Type | Department | Care Team | Description | +--------+ + + + + | 06/08/ | Orders Only | [facility] | Conversion | | | 2019 | | NEPRHOLOGY [place] | Transaction, | | | | | [address] | Provider Unknown | | | | | [address] | [phone] | | | | | [address] | | | | | | [phone] | | | +--------+ + + + [...] | | | LAB | | | [place] | | | | | + + [...]
--- OUTSIDE RECORDS SUMMARY | ~2020-07-26 | XMS | Encounter Summary ---
Demographics + + + | Address | [address] | | | [place] [address] | + + + | Home Phone [...] Team Providers + +------+ + | Care Credentialer Name | Role | Phone | + [...] | | | | and | | [address] | | | | | inflammatory | | [address] | | | | | reaction | | [address] [place], | | | | | due to | | [place] | | | | | internal | | [address] | | | | | right knee | | Phone: | | | | | prosthesis, | | [phone] | | | | | initial | | Fax: | | | | | encounter | | [phone] | +--------+--------+ + + + + Encounter [...] | | | | [facility] | [facility] [place] | subsequent encounter | | | | [place], 3rd floor | [address] | (Primary Dx); Long | | | | [place], [place] | [phone] | term (current) use | | | | [address] | | of antibiotics | | | | [phone] | | | +--------+---------+ + + + [...] Take by mouth., Disp: , Rfl: antiox. 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
--- OUTSIDE RECORDS SUMMARY | ~2020-07-26 | XMS | Encounter Summary ---
Demographics + + + | Address | [address] | | | [place] [address] | + + + | Home Phone [...] Team Providers + +------+ + | Care Crib Tender Name | Role | Phone | [...] | | | | | [place], | | | | | | [place] [address] | | | +--------+--------+ + + + [...]
--- OUTSIDE RECORDS SUMMARY | ~2020-07-26 | XMS | Encounter Summary ---
Demographics + + + | Address | [address] | | | [place] [address] | + + + | Home Phone [...] Team Providers + +------+ + | Care [place] Guide Name | Role | Phone | + +------+ + | Gilberto Estrada MD | PCP | | + +------+ + Reason for Visit + +--------+ + | Reason | Onset | Comments | | | Date | | + +--------+ + | RN Care Management | 07/09/ | Resumed care at home post DC from [place] | | | 2017 | | + [...] | | | | [address] [facility] | home post DC from | | | | [facility] | [place], [place] | [facility]); | | | | [place], 3rd floor | [address] | Infectious disease | | | | [place], [place] | [phone] | | | | | [address] | | | | | | [phone] | | | +--------+ + + + [...] RN - 07/09/2018 2:39 PM Luca, from [facility] , called to inform us that the patient was DC'd from [facility] yesterday and is back on [...]
--- OUTSIDE RECORDS SUMMARY | ~2020-07-26 | XMS | Encounter Summary ---
Demographics + + + | Address | [address] | | | [place] [address] | + + + | Home Phone [...] Team Providers + +------+ + | Care Manager Spring Name | Role | Phone | + [...] floor | | | | | | [place], [place] | | | | | | [address] | | | +--------+ + + + [...]
--- OUTSIDE RECORDS SUMMARY | ~2020-07-26 | XMS | Encounter Summary ---
Demographics + + + | Address | [address] | | | [place] [address] | + + + | Home Phone [...] Team Providers + +------+ + | Care Videogame Tester Name | Role | Phone | [...] | 2018 | Event | [address] [facility] | [address] | | | | | Jr [facility] | [facility] | | | | | Hospital Admitting | [place], [place] | | | | | Desk Located on the | [address] | | | | | 9th floor | [phone] | | | | | [place], [place] | | | | | | [address] | | | +--------+ + + + [...]
--- OUTSIDE RECORDS SUMMARY | ~2020-07-26 | XMS | Encounter Summary ---
Demographics + + + | Address | [address] | | | [place] [address] | + + + | Home Phone [...] Team Providers + +------+ + | Care Flanging Machine Operator Name | Role | Phone | + +------+ + | Erin Forrester MD | PCP | | + +------+ + Encounter Details +--------+ + + + + | Date | Type | Department | Care Team | Description | +--------+ + + + + | 02/12/ | Orders Only | [facility] | Mikal Calix MD | | | 2018 | | NEPRHOLOGY [place] | [address] | | | | | [address] | [address] [place], [place] | | | | | [address] [place], [place] | [address] | | | | | [address] | | | | | | [phone] | | | +--------+ + + + [...]
--- OUTSIDE RECORDS SUMMARY | ~2020-07-26 | XMS | Encounter Summary ---
Demographics + + + | Address | [address] | | | [place] [address] | + + + | Home Phone [...] Team Providers + +------+ + | Care Avionics Systems Technician Name | Role | Phone | [...] | | | | [facility] | [place], [place] | | | | | [place], [facility] floor | [address] | | | | | [place], [place] | [phone] | | | | | [address] | | | | | | [phone] | | | +--------+--------+ + + + [...]
--- OUTSIDE RECORDS SUMMARY | ~2020-07-26 | XMS | Encounter Summary ---
Demographics + + + | Address | [address] | | | [place] [address] | + + + | Home Phone [...] Team Providers + +------+ + | Care Time Analysis Clerk Name | Role | Phone | [...] 2017 | | [facility] | [address] | | | | | [address] | [address] | | | | | [facility] | [place], [place] | | | | | [place], [facility] floor | [address] | | | | | [place], [place] | [phone] | | | | | [address] | | | | | | [phone] | | | +--------+ + + + [...] PSTDr. Dimitri Sidhu, pt's de ntist in [place], called stating pt is having burning sensation in his mouth. Dr. Sidhu i nquired about which medication should be presciribd that won't interfere with Keflex. He can be reached at: [phone] [id number] signed by Layne Huang at 10/07/2018 5:01 PM PSTdocumented in this encounter Plan of Treatment Not on filedocumented as of this encounter Visit Diagnoses Not on filedocumented in this encounter"
--- OUTSIDE RECORDS SUMMARY | ~2020-07-26 | XMS | Clinical Summary ---
Demographics + + + | Address | [address] | | | [place] [address] | + + + | Home Phone [...] Team Providers + +------+ + | Care Refrigeration Person Name | Role | Phone | + +------+ + | Gilberto Estrada MD | PCP | | + +------+ + Source Comments WHITNEY is fully live on both [facility] and [facility] InPatient.[facility] Allergies + + + + + + | Active Allergy | Reactions | Severity | Noted | Comments | | | | | Date | | + + + + + + | Nsaids | Renal Failure | High | 06/14/20 | Avoid per | | (Non-Steroidal | | | 18 | Milk Drying Machine Operator | | Anti-Inflammatory | | | | [...] 0 | | | Activ | | no.[id number] | mouth once daily. 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 | 06/11/2018 | [...] 08/19/20 | | | vaccination (#1) | 0 | 18, | | | | | 08/07/20 | | | | | 17, | | | | | 09/10/20 | | | | | 16, | | | | | Addition | | | | | al | | | | | history | | | | | exists | | + + + + + | Pneumococcal | Completed | 07/24/20 | | | vaccination | | 09 | | + + + + + [...] Right: | MARIALUISA | | 11/26/ | 7702-G | | 13mm Implanted: Qty: 1 on | | Knee | | | 2019 | -513 / | | 06/12/2018 by Sandoval Hyde | | | | | | | | MD Leanne at [facility] REV | | | | | [...] + +--------+ | MEDICARE | MEDICA | [id number] | 01/26/20 | [phone] | [address] | Medica | | | RE A & | | 15-Pre | 1 | [address] | re | | | B | | sent | | [place] | | | | | | | | [address] | | + +--------+ +--------+ + +--------+ | COMMERCIAL GROUP | COMMER | [id number] | 10/27/19 | | | Indemn | [...] Person | Self | [birth year] | [address] | | | al/Fam | | 1940 | [phone] | [place] [address] | | | afshan | | | [...]
--- OUTSIDE RECORDS SUMMARY | ~2020-07-26 | XMS | Encounter Summary ---
Demographics + + + | Address | [address] | | | [place] [address] | + + + | Home Phone [...] Team Providers + +------+ + | Care Shutdown Planner Name | Role | Phone | + +------+ + PCP | Unavailable | + +------+ + Encounter Details +--------+ + + + + | Date | Type | Department | Care Team | Description | +--------+ + + + + | 12/19/ | Hospital | Dermatopathology | | | | 2016 | Encounter | [address] | | | | | | Mailcode: [id number] | | | | | | [facility] | | | | | | and Healing, | | | | | | [address] | | | | | | Floor [place], [place] | | | | | | [address] | | | | | | [phone] | | | +--------+ + + + [...] | + +--------+ + + + | DERM PATHOLOGY | Routin | 12/19/2016 | Other specified | Results for this | | | e | | dermatitis | procedure are in the | | | | | | results section. | + +--------+ + + + documented in this encounter Results DERM PATHOLOGY (12/19/2016) + + + + + + | Component | Value | Ref Range | Performed | Pathologist | | | | | At | Signature | + + + + + + | DERMATOPATH | THIS IS AN ADDENDUM | | [facility] | | | OLOGY(WET | REPORT SOURCE OF | | DERMATOPATH | | | MNT) | SPECIMEN:A Lt. lateral | | OLOGY | | | | chest, punch | | | | | | biopsySOURCE OF | | | | | | SPECIMEN:B Lt. volar | | | | | | forearm, punch biopsy | | | | | | CLINICAL | | | | | | DESCRIPTION:A-B: 4 mm | | | | | | punch; r/o drug | | | | | | reaction. GROSS | | | | | | DESCRIPTION:Received in | | | | | | formalin are two | | | | | | specimens labeled Chace, | | | | | | Duane:A: Specimen is | | | | | | labeled "L lateral | | | | | | chest" and consists of a | | | | | | 4mm punch ofwhite-oh | | | | | | skin, cut to a depth of | | | | | | 8mm. The surgical margin | | | | | | is inked black;the | | | | | | tissue is bisected; and | | | | | | entirely submitted in | | | | | | cassette A1.B: Specimen | | | | | | is labeled "L volar | | | | | | forearm" and consists of | | | | | | a 4mm punch | | | | | | owipjlm-yjlq-xkr skin, | | | | | | cut to a depth of 3mm. | | | | | | The surgical margin is | | | | | | inkedblack; the tissue | | | | | | is bisected; and | | | | | | entirely submitted in | | | | | | cassette B1. | | | | | | MICROSCOPIC | | | | | | DESCRIPTION:A: There is | | | | | | a superficial and mid, | | | | | | perivascular and | | | | | | interstitial, | | | | | | mixedinflammatory cell | | | | | | infiltrate, including | | | | | | lymphocytes and | | | | | | multipleeosinophils. | | | | | | Lymphocytes and | | | | | | eosinophils extend into | | | | | | the overlyingepidermis | | | | | | where there is | | | | | | acanthosis, spongiosis, | | | | | | spongioticmicrovesiculat | | | | | | ion, collections of | | | | | | Langerhans cells, and | | | | | | focalparakeratosis.B: | | | | | | There is a superficial | | | | | | and deep, perivascular | | | | | | and interstitial, | | | | | | mixedinflammatory cell | | | | | | infiltrate, including | | | | | | lymphocytes and | | | | | | multipleeosinophils. | | | | | | Lymphocytes and | | | | | | eosinophils extend into | | | | | | the overlyingepidermis | | | | | | where there is | | | | | | acanthosis, spongiosis, | | | | | | basal vacuolar change | | | | | | withrare dyskeratosis, | | | | | | spongiotic | | | | | | microvesiculation, and | | | | | | basket-weave | | | | | | stratumcorneum with | | | | | | focal parakeratosis. 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 | | | | | | NOTE: The differential | | | | | | diagnosis for | | | | | | eosinophilic spongiosis | | | | | | includes drugeruption, | | | | | | arthropod bite reaction, | | | | | | allergic contact | | | | | | dermatitis | | | | | | andpotentially prodromal | | | | | | phase of immunobullous | | | | | | disorder. Additional | | | | | | deepersections in | | | | | | evaluation for scabetic | | | | | | mite parts and PAS | | | | | | stains have | | | | | | beenrequested, the | | | | | | results of which will be | | | | | | reported separately as | | | | | | an addendum. | | | | | | ADDENDUM:PAS stains | | | | | | performed on both the | | | | | | left lateral chest (A) | | | | | | and left volarforearm | | | | | | (B) biopsies are | | | | | | negative for fungal | | | | | | hyphae. Additional | | | | | | deepersections also | | | | | | performed on both | | | | | | biopsies demonstrate | | | | | | similar features tothe | | | | | | initial sections and are | | | | | | negative for scabetic | | | | | | mites, although this | | | | | | aswell as other | | | | | | parasitic or arthropod | | | | | | bite reaction remains in | | | | | | thedifferential | | | | | | diagnosis given the | | | | | | presence of numerous | | | | | | eosinophils, as doesdrug | | | | | | eruption, allergic | | | | | | contact dermatitis, and | | | | | | precursor phase | | | | | | ofimmunobullous disease. | | | | | | Clinical correlation is | | | | | | required. My | | | | | | [...] Diagnostician: | | | | | | Amparo King | | | | | | Marlen | | | | | | MDPathologistElectronica | | | | | | lly Signed 12/30/2016 | | | | | | 7:47AM | | | | + + + [...] + | [facility] | Mailcode [id number] [address] | [place] | | | DERMATOPATHOLOGY | [address] | | | + + + + + | [facility] | Mailcode CH5D [address] | [place] [address] | | | DERMATOPATHOLOGY | [address] | | | + + + + + documented in this encounter Visit Diagnoses + + | Diagnosis | + + | Other specified dermatitis | + + documented in this encounter
--- OUTSIDE RECORDS SUMMARY | ~2020-07-26 | XMS | Encounter Summary ---
Demographics + + + | Address | [address] | | | [place] [address] | + + + | Home Phone [...] Team Providers + +------+ + | Care Annealing Operator Name | Role | Phone | [...]
--- OUTSIDE RECORDS SUMMARY | ~2020-07-26 | XMS | Encounter Summary ---
Demographics + + + | Address | [address] | | | [place] [address] | + + + | Home Phone [...] Team Providers + +------+ + | Care Fabric Inspector Name | Role | Phone | [...] | | | | JOSE Arreaga | [place], [place] | chronicity (Primary | | | | [address] | [address] | Dx); Infection | | | | [place], [place] | [phone] | associated with | | | | [phone] | | internal right knee | | | | [phone] | | prosthesis, | | | | [...] Ghassan Sherman MD - 07/14/2018 1:25 PM [facility] 06/12/18 Right TKA [...] tknee ap/laterall GHASSAN SHERMAN MD [facility] [place] [address] [facility] [address] [place] [address] No orders of the defined [...]
--- OUTSIDE RECORDS SUMMARY | ~2020-07-26 | XMS | Encounter Summary ---
Demographics + + + | Address | [address] | | | [place] [address] | + + + | Home Phone | | + + + | Preferred Language | Unknown | + + + | Marital Status | Unknown | + + + | Hinduism Affiliation | PRO | + + + [...] Providers + +------+ + | Care Equipment Maintenance Supervisor Name | Role | Phone | [...] [address] | | | | | [address] | [address] | | | | | [address] | [place], [place] | | | | | [place], [facility] floor | [address] | | | | | [place], [place] | [phone] | | | | | [address] | | | | | | [phone] | | | +--------+ + + + [...]
--- OUTSIDE RECORDS SUMMARY | ~2020-07-26 | XMS | Encounter Summary ---
Demographics + + + | Address | [address] | | | [place] [address] | + + + | Home Phone | | + + + | Preferred Language | Unknown | + + + | Marital Status | | + + + | [employer] Affiliation | 1077 | + + + | Race | White | + + + | Ethnic Group | Not or | + + + Author + + + | Author | [facility] | | | and [place] | + + + | Organization | [facility] | [...] Providers + +------+ + | Care Rn Case Manager Name | Role | Phone | [...] 2019 | | [address] | [address] | | | | | [address] | [place] | | | | | [address] | [place] | | | | | [phone] | [address] | | | | | | [phone] | | | | | | | [...] | | | | using the MDRD IDMT | | | | | | traceable [...]
--- OUTSIDE RECORDS SUMMARY | ~2020-07-26 | XMS | Encounter Summary ---
Demographics + + + | Address | [address] | | | [place] [address] | + + + | Home Phone [...] Team Providers + +------+ + | Care Delivery Stock Clerk Name | Role | Phone | [...] [facility] | | | | | | [facility] | | | | | | and Healing, | | | | | | [address] | | | | | | Floor [place], [place] | | | | | | [address] | | | | | | [phone] | | | +--------+ + + + [...] punch | | | | | | [id number] skin, | | | | | | [...] [facility] | Mailcode CH5D [address] | [place] | | | DERMATOPATHOLOGY | [address] | | | + + + + + | [facility] | Mailcode CH5D [address] | [place] [address] | | | DERMATOPATHOLOGY | [address] | | | + + + + + documented in this encounter Visit Diagnoses + + | Diagnosis | + + | Other specified dermatitis | + + documented in this encounter
--- OUTSIDE RECORDS SUMMARY | ~2020-07-26 | XMS | Encounter Summary ---
Demographics + + + | Address | [address] | | | [place] [address] | + + + | Home Phone [...] Team Providers + +------+ + | Care Tobacco Stemmer Machine Name | Role | Phone | + [...] | | | [address] | [address] [facility] | | | | | [address] | [address] | | | | | [phone] | | | +--------+ + + + [...] - 1.030 | EXTERNAL | | | [place], | | | LAB | | | [...]
--- OUTSIDE RECORDS SUMMARY | ~2020-07-26 | XMS | Encounter Summary ---
Demographics + + + | Address | [address] | | | [place] [address] | + + + | Home Phone [...] Providers + +------+ + | Care Senior Asp Net Developer Name | Role | Phone | [...] | | | [address] | [address] | orders) | | | | [address] | [place], [place] | | | | | [place], [facility] floor | [address] | | | | | [place], [place] | [phone] | | | | | [address] | | | | | | [phone] | | | +--------+ + + + [...]
--- OUTSIDE RECORDS SUMMARY | ~2020-07-26 | XMS | Encounter Summary ---
Demographics + + + | Address | [address] | | | [place] [address] | + + + | Home Phone [...] Team Providers + +------+ + | Care Tracer Clerk Name | Role | Phone | [...] 2017 | | SW Justus Hernandez | [address] | EXCHANGE MICRO x 7 | | | | Rd [facility] | [place], [place] | PATH x 2 | | | | Hospital Admitting | [address] | | | | | Desk Located on the | [phone] | | | | | 9th floor | | | | | | [place], [place] | | | | | | [address] | | | +--------+---------+ + + + [...] (s/p PCI x3, CABG x2) complicated by associate art director erich systolic heart failure (EF 45%) due [...] excellent response. He will continue PT/OT at [facility] swing bed unit. Per orthopedic [...] Orthopedic surgery- Dr. Ghassan Sherman ID- Dr. Isahan Villalobos Outstanding labs/studies: none Code Status: Full [...] I-CAPS 280-10-2 mg Cap Generic drug: antiox.mv no.19-kkez6c-wuoqsbw3z-idf-kpz Take 1 capsule by mouth once daily. [...] (Non-Steroidal Anti-Inflammatory Drug) Renal Failure Avoid per Data Processor recommendations Sulfa (Sulfonamide Antibiotics) Rash Vital Signs [...] information for after-discharge care Discharge Destination IP [facility] . Specialty: Acute Care Hospital Contact information [address] [place] [phone] [place] Location: [facility] swing bed unit Appointments: Dr. Sherman on 07/23/18 at 10:40am. The discharge note was forwarded to the PCP for review. Discharging Physician: Ann Mahmood MD Suggested CPT: 55206 Discharge Management > 30 minute I spent more than 35 minutes ahye-zy-juaz with the patient of which 70% was [...] | | 0 | | | | no.71-rrpi3x-gyjluob0v-jeb-pnx | mouth once daily. | | | [...] negative pressure wound therapy dressing right knee [id number] Subjective: Doing ok overall. No CP/SOB. Tolerating [...] Plan to DC today to SNF in [place]. SNF can pull sutures at 2 weeks from operat kai date (June 27 is 2 weeks post op). Plan to return to Dr. Sherman' clinic 6 weeks an d also have ID clinic visit on that day. Appreciate [facility] and ID help in managing this complex [...] knee at that time. Elias Soriano MD [facility] Department of Orthopaedics and Rehabilitation PGY-1 Pager [phone] Ann Vang MD - 4:42 PM PDT [...] (s/p PCI x3, CABG x2) complicated by associate art director erich systolic heart failure (EF 45%) due [...] mg daily Dispo: Anticipate discharge tomorrow to [facility] bed unit if renal function is s table Code status: Full code Diet: Regular diet Prophy: warfarin and heparin Ann Mahmood MD Steam Conditioner Operatorrace car driver Clinical Hospitalist and Medicine Teaching Services [facility] Pager [phone] Suggested CPT: 80587 Subsequent Visit Detailed/High complexity 35 min I spent 37 minutes rqdq-pf-diub with the patient of which 78% was [...] negative pressure wound therapy dressing right knee [id number] Subjective: Doing ok overall. No CP/SOB. Tolerating [...] to home as t ransporting back to [place] may present the patient and family undo hardship. 6. Dressings/Drains: Pulled yesterday? 7. Dispo/Discharge: Anticipate discharge to SNF in next 1-3 days if all criteria met. 8. Follow-up: Please call the clinic to make a follow up appointment in approximately 2 wee ks with ORTHO TRAUMA & FRACTURE, . AP and lateral of R knee at that time. Elias Soriano MD [facility] [place] Department of Orthopaedics and Rehabilitation PGY-1 Pager [phone] atel, Tanvir - 06/16/2018 8:20 AM PDT [...] three and a half hours away from [place]. At this time, we are unsur e of his ability to follow up with an OPAT clinic or if there is a provider near [place], where the patient resides. 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 This patient was staffed [facility] Dr. Villalobos, who agrees with the above assessment and plan unless otherwise documented. Tanvir Ayala, [facility] P SUBJECTIVE Interval Events: No acute events overnight S: patient reports he is feeling well this morning. States he was able to meet with a caser shoe parts and had decided to go to a [...] Dona Mercado MD Division of Hospital Medicine [facility] Pager [phone] I spent more than 35 minutes uagl-dd-bccw with the patient of which greater than [...] negative pressure wound therapy dressing right knee [id number] Subjective: Doing ok overall, not too much [...] to home as t ransporting back to [place] may present the patient and family undo [...] time. JATIN Dent Orthopaedic Trauma Surgery Pager [phone] Stephan Aguirre MD - 06/14/2018 8:59 AM [...] Dona Mercado MD Division of Hospital Medicine [facility] Pager [phone] I spent more than 35 minutes exnt-kk-kwon with the patient of which greater than [...] negative pressure wound therapy dressing right knee [id number] Subjective: Pain improving in R knee. Objective: [...] at that time. SEBAS PLEITEZ MD Pager [phone] tephan Mercado M D - 06/13/2018 9:51 [...] Andrichard Mercado MD Division of Hospital Medicine [facility] Pager [phone] I spent more than 35 minutes yysh-ed-mkpn with the patient of which greater than [...] negative pressure wound therapy dressing right knee [id number] Subjective: Painful in R knee today, but [...] at that time. SEBAS PLEITEZ MD Pager [phone] Stephan Aguirre M D - 06/12/2018 1:24 [...] Andrichard Mercado MD Division of Hospital Medicine [facility] Pager [phone] I spent more than 35 minutes jrgk-pk-jeeo with the patient of which greater than [...] total arthroplasty. Nika martinez was referred to [facility] for joint revision, and presented emergently to [facility] ED from [facility] ([place], [place]). Prior to presentation patient states that [...] mild distal inferior-apical ischemia, LVEF 53%. -10/2015 [facility] with 90% ostial first diagonal, 85% ostial second diagonal, occluded stent of proximal RCA with left to right coronary collaterals, Patent SVG to LAD Ischemic Cardiomyopathy c/b Chronic Systolic Heart Failure and Diastolic Heart Failure -10/2015 [facility] with EF 45% and inferiobasal akinesia Obstructive [...] po daily Carvedilol 12.5mg po daily -Y Cochrane-3 fatty acid 1,200mg po bid Acetaminophen-codeine po [...] the Social Hx as appropriate. Lives in [place], [place], Greater than 40 PYH tobacco use, [...] on going soft tisuse infection. -would consult homemaking rehabilitation consultant for enhanced nutrition in post-operative period Non-Insulin [...] as unclear why patient was placed on custodial anticoagulation after prior provoked DVT. Dean Ugarte MD Clinical Hospitalist Services [facility] Pager [phone] 06/11/2018 10:44 PM [facility] DEPARTMENT: Hosp ([facility]) - [phone] Place of Service: [facility] [id number] Date of Service: 07/25/2016 [facility] [id number] Modifiers:GC Resident Involved: No Service: PRIMARY HOSPITALIST Suggested CPT: 69334 Initial Visit Comp/High Complexity 70 min I [...] Antibiotics and Frequent lab draws Procedure location: Unit:[facility] Room: 14 Providers: Attending name: Attending physically present: No PICC Nurse name: Frances Fair RN BSN VAT Assisted by Christina March RN BSN VAT Pre-Procedure Consent: written consent obtained Consent given by: Patient Patient identity confirmed per protocol: Yes Team Pause: Immediatly prior to the procedure a pause per protocol was called. A pause veri fies correct patient, procedure, equipment, production support developer and site/side marked as required. CLABSI Prevention [...] area Basilic vein. Cat heter lot number: [id number] with a length of 55 cm was [...] Service: 08/01/2015 Attending Surgeon: Ghassan Sherman MD Paper Grader(s): mesfin thompson MD Preoperative Diagnosis: 1. right total knee prosthetic joint infection. Postoperative Diagnosis: same Procedures Performed: 1. Right knee arthrotomy with drainage for infection and polyethylene exchange 2. Application TINO disposible negative pressure wound therapy dressing right knee [id number] Anesthesia: General endotracheal anesthesia. Implants: excahgned alisha triathalon poly size 15, 13mm EBL: 50 Complications: None Specimens: 6 cultures, 1 path Indication For Procedure: Solo Alves was transferred to [facility] for sepsis after previosuly having been treated with a right total knee. He ws medically unstable and transferred to [facility]. An apsirate was positive. I [...] Patricia wrap. He was then awoken from [facility] and transported back to the postanesthesia care unit. Postoperative Plan: The patient be full weightbearing on his right lower extremity He will follow up in approximately 2-3 weeks with Licah Luna for wound inspection in clinic. At [...] as it stands. Ghassan Sherman MD, MPH Junior Assistant Manager, Dept. of Orthopaedics [address] [place] [address] [email or web address] docu mented in this encounter [...] patient will need to follow up at [facility] on July 23 with orthopedics. During t hat time,we will cooridnate so that he may follow up with ID/OPAT in regards to his treatmen t. He will be discharged to [facility] to receive inpatient therapy and OPAT. 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 at [facility]. If patient is discharged fr [...] the primary team. This patient was staffed [facility] Dr. Villalobos, who agrees with the above assessment and plan unless otherwise documented. Tanvir Ayala, [facility] P SUBJECTIVE Interval Events: No acute events [...] to be continued via OPAT at [facility] Microbiology Data: Source Date Results Tissue [...] tablet allopurinol 300 mg oral tablet antiox.mv no.40-erkr0r-lhrmkkd7t-jeq-cjy (I-CAPS) 280-10-2 mg oral capsule carvedilol 12.5 [...] Anticoagulation Clinic/Provider: New PCP Dr. Don Estrada ([phone]) Date INR Warfarin Dose 06/17/2018 1.78 2.5 [...] make recommendations. Please page clinical ph armacist (#[phone]) or call central inpatient pharmacy ([phone]) with questions. Rashard Jacob Pharm. D. Candidate Associated attestation - Mary Wade [facility] - 06/17/2018 11:14 AM PDT--I have reviewed the note written by retail pharmacy manager Rashard Jacob and I agree with the content and his plan for warfarin on this patient. Thank you, Mary Mauro [facility]. Pager [phone] Wade Mary [facility] - 06/16/2018 1:26 PM PDTFormatting of this [...] Anticoagulation Clinic/Provider: new PCP Dr. Don Estrada ([phone]) Date INR Warfarin Dose 06/16/2018 1.51 2.5mg [...] make recommendations. Please page clinical ph armacist (#[phone]) or call central inpatient pharmacy ([phone]) with questions. Thank you for consult, Mary Wade [facility]. Pager [phone] Trish Blankenship MD - 10:46 AM PDTAssociated Order(s): IP CONSULT TO INFECTIOUS DISEASESFormatting of thi s note might be different from the original. [facility] Infectious Diseases OPAT Referral for Discharge Planning Team B: OPAT RN Jaye Young, Office: [phone], Pager: [phone] ID Diagnosis: PJI Antibiotic agent and dosing: [...] (pt has an ortho appointment 10:40 ) Emergency Crew Supervisor: For all patients requiring IV antibiotic therapy, please route your OPAT [place] n of Care Note (.CMOPAT) to [facility] "p OPAT/Infectious Diseases clinic" Pool at [...] and make recommendations. Please page clinical pharmacist (#[phone]) or call central inpatient pharmacy ([phone]) with questions. Subjective/Objective: Allergies: Nsaids (non-steroidal anti-inflammatory [...] by his new PCP Don Estrada MD ([phone]). 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 We will discuss [facility] OPAT vs outside providers. Formalized recs pending Recommendations were communicated directly to the primary team. This patient was staffed [facility] Dr. Villalobos, who agrees with the [...] arthritis. The patient was then transferred from [place] to [facility] for fu rther evaluation. While here, [...] 300 mg by mouth once daily. antiox. no.20-xcbx1l-uzafwne0e-xuv-fho (I-CAPS) 280-10-2 mg oral capsule Take 1 [...] (Non-Steroidal Anti-Inflammatory Drug) Renal Failure Avoid per Data Processor recommendations Sulfa (Sulfonamide Antibiotics) Rash Social History [...] care. Ishaan Villalobos MD Division of Infectious DiseasesLakeland, Ramon, PharmD - 06/14/2018 7:36 PM PDT [...] lab draw. - Please page clinical pharmacist [phone]) or call central inpatient pharmacy ([phone]) wit h questions. Subjective/Objective: Júnior Mas, a [...] CULTURE, TISSUE-PROSTHETIC JOINT INFECTION AER AND MARIELOS [[id number]] (Abnormal) KP LAB Collec dilcia: 06/12/18 1354 Lab Status: Preliminary result Specimen: Tissue from Knee - right Updated: 06/14/18 1344 CULTURE RESULT LAB Staphylococcus epidermidis (A) Ref Range: Narrative: Culture Report: Staphylococcus epidermidis Gram Stain: No squamous epithelial cells Rare polymorphonuclear cells No organisms seen Thank you, Ramon Mercado, PharmD, [facility] Clinical Pharmacist alickn, Torey Adame rmD [...] and make recommendations. Please page clinical pharmacist (#[phone]) or call central inpatient pharmacy ([phone]) with questions. Subjective/Objective: Júnior Mas, a 78 [...] by his new PCP Don Estrada MD ([phone]). The patient reports Dr Estrada wanted him [...] you for the consult, Evgeny Akers PharmD, [facility] Pager [phone] Evgeny Robles PharmD - 06/13/2018 8:41 AM [...] on stable regimen. Please page clinical pharmacist (#[phone]) or call central inpatient pharmacy ([phone]) with q uestions. Subjective/Objective: Indication: infectious disorder of joint Therapy start date: 06/12/18 Anticipated duration: TBD Goal trough: ~15 mg/L Urine output: unavailable for most of the past 24 hours Renal function: stable , current SCr 1.66 (Baseline SCr 1.6-1.8) Actual body weight: Weight: 86.7 kg (191 lb 1.6 oz) (06/13/18 7358) Pertinent cultures/sensitivities: 06/12/18 blood and tissue cultures - in process Thank you for the consult, Evgeny Akers PharmD, [facility] Pager [phone] Harley Echols MD - 06/11/2018 7:27 PM PDT [facility] [place] DEPARTMENT OF ORTHOPAEDICS & REHABILITATION HISTORY & [...] done in [address] at [facility] for advance d DJD. He's had [...] culture s pending. He was transferred to [facility] for further management of a septic prosthetic knee. Implants: Lovell Triathlon Total Knee System 1. Size 4 [...] up appointment in approximately 2 weeks w [facility] ORTHO TRAUMA & FRACTURE, The orthopaedics consult pager is [phone], please call with questions. Harley Weaver MD Resident Department of Orthopaedics Pager [phone] [facility] [place] Department of Orthopaedics & Rehabilitation [address] [facility] Mail Code: OP31 [facility] [address] Associated attestation - Ghassan Sherman MD - [...] call me for questions. GHASSAN SHERMAN MD [facility] [address] [address]/[id number] [place] [address] documented in this encounter ED Notes Carla [...] (H) 0.70 - 1.30 mg/dL EGFR - MALAYSIAN 39 (L) >60 mL/min EGFR NON -MALAYSIAN 32 (L) >60 mL/min SODIUM, PLASMA (LAB) [...] total knee replacement in 2013 done in [facility]. Right k nee also became more swollen at that time, though without any warmth or redness. Pain worse with any movement and better at rest. He was evaluated by his PCP and started on coumadin for question of DVT, though RLE ultraso und was negative. Seen by Dr. René Yen (orthopedics) in [place] 06/09 with the following labs. 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 Laboratory and imaging results including ESR, CRP were reviewed and interpreted, and notabl e for the following: - significantly elevated ESR and CRP - arthrocentesis at [place] with 79,000 WBCs The patient received the following in the emergency department (including medications, inte rventions, consultations, and reassessments): - orthopedics consultation, plan for [place] tomorrow Given this, patient required admission for further care. We spoke to the [facility] ist service, who accepted patient [...] Information: Patient discharging to swing bed at [facility] in [facility]. Reviewed DC to SNF AVS with patient and family, all questions answered, reinforced fo llow up appointments per AVS. PICC line in RUE with dressing CDI at discharge. TINO dressing CDI with green light flashing at discharge. Telephone report given to FLY Vanegas at [facility] at 1125. Transportation provided by family [...] njury prevention even in recliner chair. (06/15/18 0996) [facility] IP NURSE HANDOFF: [facility] hospital course [...] njury prevention even in recliner chair. (06/15/18 3493) [facility] IP NURSE HANDOFF: [facility] hospital course [...] Met Case Management OPAT Plan of Care: [facility] hospital discharge date: 06/17/2018 This patient will be followed for all post hospital OPAT care needs by: [facility] OPAT/Infectiou s Diseases Clinic, ; IV antibiotic orders were provided to: Other vendor facility, Name: [facility] Swi ng Bed, , , [...] throughout session other than pt and therapist: scientific aide Current unit: 9k Brief Hospital Course:Júnior Mas [...] with FWW: minimum assist, 15 feet with scientific aide stand by assist and follow ing with wheelchair. Chair to chair transfer front wheeled walker and minimum assist Pt left up in recliner chair, call light/urinal and belongings all in reach. [facility] BASIC MOBILITY Difficulty turning over in [...] to do/total assistance - Total/Dependen t Assist [facility] Basic Mobility Total Score 14 Interpretation of [facility] Short Form - Basic Mobility: CMS [...] to be determined . Umm Joy, BRICE [id number] andoff - Emily Covarrubias RN - 06/16/2018 [...] njury prevention even in recliner chair. (06/15/18 8008) [facility] IP NURSE HANDOFF: [facility] hospital course [...] As evidenced by: Poor intake tonight from 8414-6353 despite encouragement. He states that his water [...] njury prevention even in recliner chair. (06/15/18 0942) [facility] IP NURSE HANDOFF: [facility] hospital course [...] throughout session other than pt and therapist: scientific aide and student observer Current unit: 9k Brief [...] cell phone and water all in reach. [facility] BASIC MOBILITY Difficulty turning over in [...] to do/total assistance - Total/Dependen t Assist [facility] Basic Mobility Total Score 9 Interpretation of [facility] Short Form - Basic Mobility: CMS [...] Equipment recommendations: to be determined [place] [id number] andoff - Maria Dolores Gurrola RN - [...] njury prevention even in recliner chair. (06/15/18 9711) [facility] IP NURSE HANDOFF: [facility] hospital course [...] at EOB finishing breakfast with family at [facility]. Recliner found and placed in room [...] nutrient distribution type or amount Nutrition Assessment: counter intelligence agent received. Pt does not like food here, [...] intake Following, Ivana Mendez, MS, RD, LD, [facility] Pager #: [phone] Comments: Júnior Mas is a 78 y.o. [...] patellar osteomyelitis at time of admission to [facility] medicine service with orthopedic sugery service [...] 29.04 kg/m2 AdjBW: 71.5 kg Estimated needs: 0734-9708 kcal/day (25-30 kcal/kg AdjBW); 72-107 g protein/day (1-1.5 g/kg AdjBW) andoff - Benny, Justus recio RN - 06/15/2018 3:49 AM PDTNursing Handoff [facility] IP NURSE HANDOFF: [facility] hospital course [...] RN - 06/14/2018 5:38 PM PDTNursing Handoff [facility] IP NURSE HANDOFF: [facility] hospital course [...] encourage meals. Monitor UOP- no ouput from 9848-1137. [facility] notified- BMS ordered. encourage fluids. MOBILITY: 2pa [...] PM PDT Physical Therapy Evaluation and Treatment [id number] [facility] Day: 3 Date of : 1940 [...] going down ramp) Vision/Hearing: hearing aids (very [place]; states he refuses hearing aids) Patient / Family Goal: patient will not state; patient : For patient to return home. Language: Mongolian. Barriers: Very [place], not fully attentive. Pain: "lots"; refuses to [...] assist after focus on m idline. PT, MANAGER COMMUNITY and patient encourage patient to get up to a chair, with assistance, patient r efused 4 times. Outcome Measure(s): 5 Time Sit to Stand: unable. >15 seconds predicts recurrent fallers [facility] BASIC MOBILITY Difficulty turning over in [...] to do/total assistance - Total/Dependen t Assist [facility] Basic Mobility Total Score 9 Interpretation of [facility] Short Form - Basic Mobility: CMS [...] underestimate Ended session: Patient supine in bed. MANAGER COMMUNITY attending to patient. ASSESSMENT: Patient presents s/p [...] RN - 06/14/2018 2:37 AM PDTNursing Handoff [facility] IP NURSE HANDOFF: [facility] hospital course [...] RN - 06/13/2018 1:32 AM PDTNursing Handoff [facility] IP NURSE HANDOFF: [facility] hospital course [...] Saige Rivera RN - 06/12/2018 8:36 PM [facility] (Stable For [...] information: see anesthesia record Functional Epidural: No CISCO CERTIFIED INTERNETWORK EXPERT: No Respiratory: RR: 17, O2 Sat: 98 %, O2 Delivery: Nasal cannula Breath Sounds: WDL Except (SEUN - not diagnosed) TAYLOR: LLL: RUL: RLL: SEUN No Comment: none Cardiac: BP: 113/47 HR: 94 GI: Nausea/Vomiting Status: No Signs/Symptoms: Interventions: Assessment: Comments: toleratingPO : Last void: at 1900 Contact Name: Beth Contact Number: [phone] Family contacted: Yes Comment:updated family Belongings:none in PACU [facility] - Rahel Shaw RN - 06/12/2018 1:22 [...] in the provider note. Sandra Valle MD [facility] [facility] - Arnie Busby ANP - 06/11/2018 3:19 PM PDT Call from Dr. Eric Yen, [facility] Pt with hx of CHF with significant fluid retention, right knee replacement, chronic leg ulc ers has infected total knee. Presented to clinic today with right knee swelling and pain. Right knee aspirate today: 79k white cells Markedly elevated CRP and sed rate Temp 99.4, vitals stable and normal Spoke with [facility] orthopedic surgeon Dr. Leon who advised transfer to [facility] ED Pt coming now via POV [facility] Rita Sandhu - 06/11/2018 3:19 PM PDTPt with post procedure infection, R total knee. Connected ref with ROCAEL Sanders. [facility] Rita Barker - 06/11/2018 2:09 PM PDTRef previously consulted [facility] ortho Dr. Maral Leon who advised PT to come to [facility] ED. Advised Dr. Yen to call [...] + + + | [facility] | [address] | [place], [place] | | | OPHELIA LOZADA OF CARE | [address] | [address] | | | TESTS | | | [...] | + + + + + | [facility] | [address] | [place] [address] | | | SERVICES, CORE | DANI [...] | | | LABORATORY | | | MALAYSIAN | | | SERVICES, | | | [...] | + + + + + | [facility] | [address] | [place] [address] | | | SERVICES, CORE | DANI [...] D[facility] | [address] | [place], [place] | | | OPHELIA LOZADA OF FUAD | [address] | [address] | | | TESTS | | | [...] [facility] | [address] | [place], [place] | | | KIERRA OGDEN OF [facility] SAULT | [address] | [address] | | | TESTS | | | [...] draws Procedure location: | | | Unit:9 [facility] Room: 14 Providers: Attending name: [...] | | | correct patient, procedure, equipment, production support developer and site/side | | | marked as [...] | area Basilic vein. Catheter lot number: [id number] with a length of 55 | | [...] [facility] | [address] | [place], [place] | | | KIERRA POINT OF CARE | [address] | [address] | | | TESTS | | | [...] | + + + + + | [facility] | [address] | [place] [address] | | | SERVICES, CORE | DANI [...] | | | LABORATORY | | | MALAYSIAN | | | SERVICES, | | | [...] | + + + + + | [facility] | [address] | [place] [address] | | | SERVICES, CORE | DANI [...] [facility] | [address] | [place], [place] | | | OPHELIA LOZADA OF CARE | [address] | [address] | | | TESTS | | | [...] DARSHANA | [address] | [place], [place] | | | OPHELIA LOZADA OF CARE | [address] | [address] | | | TESTS | | | [...] (H) | 70 - 99 mg/dL | [facility] - | | | GLUCOSE, | [...] [facility] | [address] | [place], [place] | | | OPHELIA LOZADA OF CARE | [address] | [address] | | | TESTS | | | [...] | + + + + + | [facility] | [address] | [place] [address] | | | SERVICES, CORE | DANI [...] | | | LABORATORY | | | MALAYSIAN | | | SERVICES, | | | [...] | + + + + + | [facility] | [address] | [place] [address] | | | SERVICES, CORE | DANI [...] [facility] | [address] | [place] [address] | | | SERVICES, CORE | PARK [...] [facility] | [address] | [place] [address] | | | SERVICES, CORE [...] | + + + + + | [facility] | [address] | [place] [address] | | | SERVICES, CORE | PARK [...] [facility] | [address] | [place] [address] | | | KAREEM FINCH | DANI [...] [facility] | [address] | [place], [place] | | | KIERRA POINT OF CARE | [facility] | [address] | | | TESTS | | | [...] | | | LABORATORY | | | MALAYSIAN | | | SERVICES, | | | [...] is appropriate. | LABORATORY | | Page [phone] or call [phone] with questions. Thank you. GFR is | [...] | + + + + + | [facility] | [address] | [place] [address] | | | SERVICES, CORE | DANI [...] + + | [facility] | [address] | [place] [address] | | | SERVICES, KAREEM | DANI [...] is appropriate. | LABORATORY | | Page [phone] or call [phone] with questions. Thank you. | SERVICES, CORE | + + + + + + + + | Performing | Address | City/State/Zipcode | Phone Number | | Organization | | | | + + + + + | [facility] | [address] | [place] [address] | | | SERVICES, KAREEM | [address] [...] [facility] | [address] | [place], [place] | | | OPHELIA LOZAAD OF CARE | [address] | [address] | | | TESTS | | | [...] DARSHANA | [address] | [place], [place] | | | [place]INT [facility] SAULT | [address] | [address] | | | TESTS | | | [...] | + + + + + | [facility] | [address] | [place] [address] | | | SERVICES, CORE | DANI [...] | | | LABORATORY | | | MALAYSIAN | | | SERVICES, | | | [...] | + + + + + | [facility] | [address] | [place] [address] | | | KAREEM FINCH | DANI [...] [facility] | [address] | [place], [place] | | | KIERRA POINT OF CARE | [address] | [address] | | | TESTS | | | [...] [facility] | [address] | [place], [place] | | | OPHELIA LOZADA OF [facility] SA[facility] | [address] | [address] | | | TESTS | | | [...] [facility] | [address] | [place], [place] | | | OPHELIA LOZADA OF CARE | [address] | [address] | | | TESTS | | | [...] | + + + + + | [facility] | [address] | [place], [place] | | | CARDIOLOGY | [address] | [address] | | + + + + + [...] DARSHANA | [address] | [place], [place] | | | OPHELIA LOZADA OF CARE | [facility] | [address] | | | TESTS | | | [...] | + + + + + | [facility] | [address] | [place] [address] | | | SERVICES, CORE | [address] [...] | | | LABORATORY | | | MALAYSIAN | | | SERVICES, | | | [...] | + + + + + | [facility] | [address] | [place] [address] | | | SERVICES, CORE | PARK [...] | + + + + + | [facility] | [address] | [place] [address] | | | SERVICES, CORE | DANI [...] | | | LABORATORY | | | MALAYSIAN | | | SERVICES, | | | [...] | + + + + + | [facility] | [address] | [place] [address] | | | SERVICES, CORE | PARK [...] [facility] | [address] | [place] [address] | | | SERVICES, | [address] [...] | + + + + + | [facility] | [address] | [place] [address] | | | SERVICES, | [address] [...] | + + + + + | [facility] | [address] | [place] [address] | | | KAREEM FINCH | [address] [...] [facility] | [address] | [place] [address] | | | SERVICES, | [address] [...] | + + + + + | [facility] | [address] | [place] [address] | | | SERVICES, CORE | DANI [...] (H) | 70 - 99 mg/dL | [facility] - | | | GLUCOSE, | [...] [facility] | [address] | [place], [place] | | | KIERRA POINT OF CARE | [address] | [address] | | | TESTS | | | [...] | | | LABORATORY | | | MALAYSIAN | | | SERVICES, | | | [...] | + + + + + | [facility] | [address] | [place] [address] | | | KAREEM FINCH | DANI [...] | + + + + + | [facility] | [address] | [place] [address] | | | SERVICES, CORE | DANI [...] (H) | 70 - 99 mg/dL | [facility] - | | | GLUCOSE, | [...] [facility] | [address] | [place], [place] | | | OPHELIA LOZADA OF [facility] SA[facility] | [address] | [address] | | | TESTS | | | | + + + + + PROCEDURE NOTE (06/12/2018 2:57 PM PDT) + + + | Narrative | Performed At | + + + | Ghassan Sherman MD 06/17/2018 2:15 PM Date of Service: | | | 08/01/2015 Attending Surgeon: Ghassan Sherman MD | | | Paper Grader(s): mesfin thompson MD Preoperative Diagnosis: 1. 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 Postoperative Diagnosis: | | | same Procedures Performed: 1. Right knee arthrotomy with | | | drainage for infection and polyethylene exchange 2. Application | | | TINO disposible negative pressure wound therapy dressing right knee | | | [id number] Anesthesia: General endotracheal anesthesia. | | | Implants: excahgned alisha triathalon poly size 15, 13mm EBL: 50 | | | Complications: None Specimens: 6 cultures, 1 path Indication | | | For Procedure: Solo Alves was transferred to [facility] for sepsis | | | after [...] | | stands. Ghassan Sherman MD, MPH Junior Assistant Manager, Dept. of | | | Orthopaedics [place] [address] [address] | | | Maricel Ar[address]aga. [address] [place] [address] | | | [email or web address] | | + + + [...] [facility] | [address] | [place], [place] | | | OPHELIA LOZADA OF CARE | [address] | [address] | | | TESTS | | | [...] [facility] | [address] | [place], [place] | | | OPHELIA LOZADA OF [facility] SA[facility] | [address] | [address] | | | TESTS | | | [...] - | | | | | | [place] | | + + + + + [...] due to growth of other | [facility] | | organsims. Gram Stain: No squamous epithelial cells Moderate | | | polymorphonuclear cells No organisms seen | | + + + + + + + + | Performing | Address | City/State/Zipcode | Phone Number | | Organization | | | | + + + + + | [facility] | [address] | [place] [address] | | | [place] | | | [...] + | [facility] | [address] | [place] [address] | | | [place] | | | [...] + | [facility] | [address] | [place] [address] | | | [place] | | | [...] + | [facility] | [address] | [place] [address] | | | [place] | | | [...] | + + + + + | [facility] | [address] | [place] [address] | | | [place] | | | [...] | | | | | | number [phone].A. Knee, | | | | | | [...] | + + + + + | [facility] | [address] | [place] [address] | | | PATHOLOGY | [address] [...] - | | | | | | [place] | | + + + + + [...] + | [facility] | [address] | [place] [address] | | | [place] | | | | + + + [...] [facility] | [address] | [place], [place] | | | OPHELIA LOZADA OF CARE | [facility] | [address] | | | TESTS | | | [...] [facility] | [address] | [place], [place] | | | OPHELIA LOZADA OF CARE | [facility] | [address] | | | TESTS | | | [...] [facility] | [address] | [place], [place] | | | KIERRA POINT OF CARE | [address] | [address] | | | TESTS | | | [...] | + + + + + | [facility] | [address] | [place] [address] | | | SERVICES, CORE | DANI [...] + + | [facility] | [address] | [place] [address] | | | STEF, CORE | PARK [...] | + + + + + | [facility] | [address] | [place] [address] | | | SERVICES, CORE | PARK [...] | + + + + + | [facility] | [address] | [place] [address] | | | SERVICES, CORE | DANI [...] | + + + + + | [email or web address] | [address] | [place] [address] | | | STEF | DANI ALEXIS [...] | + + + + + | [email or web address] | [address] | [place] [address] | | | KAREEM FINCH | DANI [...] | | | LABORATORY | | | MALAYSIAN | | | SERVICES, | | | [...] the MDRD equation recommended by the | [facility] | | National Kidney Disease Education Program. [...] [facility] | [address] | [place] [address] | | | SERVICES, CORE | DANI [...] 36.5 (H) | 26.0 - 36.0 | [facility] | | | | | seconds [...] | + + + + + | [facility] | [address] | [place] [address] | | | SERVICES, CORE | [address] [...] (H) | 0.90 - 1.20 INR | [facility] | | | | | | LABORATORY [...] [facility] | [address] | [place] [address] | | | SERVICES, CORE | [address] [...] [facility] | [address] | [place] [address] | | | SERVICES, CORE | [address] [...] [facility] | [address] | [place] [address] | | | SERVICES, KAREEM | [address] | | | + + + + + ED INFORMATION EXCHANGE (06/11/2018 6:04 PM PDT) + + | Specimen | + + | | + + + + + | Narrative | Performed At | + + + | [id number] This patient has registered at the [place] | [facility] | | [facility] Emergency Department For more | MEDICAL | | information visit: | TECHNOLOGIES | | [email or web address] | | | 35ffec Security Events No [...] Chief Complaint Aug | | | 2017 [facility] [place] Emergency | | | Emergency 10,800. REF Recent Inpatient Visit | | | Summary No recorded inpatient visits. E.D. Visit Count (12 mo.) | | | Facility Visits [facility] 1 Total 1 | | | [...] | | facilities for additional information. 2018 [employer] | | | [facility] - [place], [place] - | | | [email or web address] | | + + + + + | Procedure Note | + + | Service Account, Rtf Results Inbound - 06/11/2018 6:06 PM PDT Formatting of this | | note might be different from the original.DANIEL?NOTIFICATION?06/11/2018 18:04?MAXWELL | | JÚNIOR? patient has registered at the [facility] | | [place] Emergency Department For more information visit: | | [email or web address] | | EventsNo recent Security Events currently on fileED Care GuidelinesThere are currently | | no ED Care Guidelines in DANIEL for this patient. Please check your facility's medical | | records system.Recent Emergency Department Visit SummaryAdmit Date Facility [facility] State | | Type Major Type Diagnoses or Chief Complaint Jun 11, 2018 [facility] | | [facility] Emergency Emergency 10,800. REF Recent Inpatient Visit | | SummaryNo recorded inpatient visits. E.D. Visit Count (12 mo.)Facility Visits [place] | | [facility] 1 Total 1 Note: [...] aforementioned facilities for additional information. ? 2018 [employer] | | [facility], [place] - [email or web address] | |Facility Visits | |[facility] 1 | |Total 1 | |Note: [...] facilities for additional information. | |? 2018 [employer] - [place], [place] - [email or web address] | + + + + + + + | Performing | Address | City/State/Zipcode | Phone Number | | Organization | | | | + + + + + | [facility] | [address] | [place], [place] | [phone] | | TECHNOLOGIES | [address] | [address] | | + + + + + [...] g, oral, NEEDED, Starting | | | [facility] 06/11/18 at 2306, Until Wed | [...]
--- OUTSIDE RECORDS SUMMARY | ~2020-07-26 | XMS | Encounter Summary ---
Demographics + + + | Address | [address] | | | [place] [address] | + + + | Home Phone [...] Team Providers + +------+ + | Care Dispute Coordinator Name | Role | Phone | [...] + + | 07/29/ | Telephone | [facility] EP | Britni Alcazar RN | Follow-up (Call to | | 2018 | | CARDIOLOGY [place] | | schedule follow up | | | | [address] | | appt. ) | | | | [place] | | | | | | [address] | | | | | | [phone] | | | +--------+ + + + [...]
--- OUTSIDE RECORDS SUMMARY | ~2020-07-26 | XMS | Encounter Summary ---
Demographics + + + | Address | [address] | | | [place] [address] | + + + | Home Phone [...] Team Providers + +------+ + | Care Application Support Developer Name | Role | Phone | [...] PADMINI Jerome | | | | | [address] | [address] | | | | | Loop Physician's | [place], [place] | | | | | [place], [facility] floor | [address] | | | | | [place], [place] | [phone] | | | | | [address] | | | | | | [phone] | | | +--------+ + + + [...]
--- OUTSIDE RECORDS SUMMARY | ~2020-07-26 | XMS | Encounter Summary ---
Demographics + + + | Address | [address] | | | [place] [address] | + + + | Home Phone [...] Team Providers + +------+ + | Care Track Layer Head Name | Role | Phone | + [...] [facility] | | | | | | [facility] | | | | | | and Healing, | | | | | | Building [address], 5th | | | | | | Floor [place], [place] | | | | | | [address] | | | | | | [phone] | | | +--------+ + + + [...] Dear | | | | | | [place]: In | | | | | | [...] Mail[facility] [address] | [place] [address] | | | DERMATOPATHOLOGY | [address] | | | + + + + + | [facility] | Mailcode [address] | [place] [address] | | | DERMATOPATHOLOGY | [address] | | | + + + + + documented in this encounter Visit Diagnoses Not on filedocumented in this encounter"
--- OUTSIDE RECORDS SUMMARY | ~2020-07-26 | XMS | Encounter Summary ---
Demographics + + + | Address | [address] | | | [place] [address] | + + + | Home Phone [...] Team Providers + +------+ + | Care Timing Adjuster Name | Role | Phone | [...] | | | | Loop Physician's | [place], [place] | | | | | [place], 3rd floor | [address] | | | | | [place], [place] | [phone] | | | | | [address] | | | | | | [phone] | | | +--------+ + + + [...] Jaye Winchester RN - 06/24/2018 9:43 AM [facility] check in - Transitional Care Management Note ASSESSMENT Spoke with nurse Aguilera at [facility] at [phone]. Verified fax number: [phone] She stated that infusions of Cefazolin 2gm [...] updated lab orders to include CRP to [phone]. NURSING OUTCOME EVALUATION Previous nursing concern(s): no [...] completed without provider involvement Jaye Winchester RN [facility] INFECTIOUS DISEASE PPV INFECTIOUS DISEASES AT [facility] 3RD FLOOR [address] [facility] [place] [address] documented in this en counter Plan of Treatment Not on filedocumented as of this encounter Visit Diagnoses Not on filedocumented in this encounter"
--- OUTSIDE RECORDS SUMMARY | ~2020-07-26 | XMS | Encounter Summary ---
Demographics + + + | Address | [address] | | | [place] [address] | + + + | Home Phone | | + + + | Preferred Language | Unknown | + + + | Marital Status | | + + + | Latter-Day Affiliation | 1077 | + + + | Race | White | + + + | Ethnic Group | Not or | + + + Author + + + | Author | [facility] | | | and [place] | + + + | Organization | [facility] | | [...] Team Providers + +------+ + | Care Change Control Specialist Name | Role | Phone | [...] | | | | | | | [place] | | | | | | | ESOPHAGOGAST | | | | | | | RODUODENOSCO | | | | | | | PY TRANSORAL | | | | | | | DIAGNOSTIC | | | | | | | [place] EGD | | | | | | | TRANSORAL | | | | | | | BIOPSY | | | | | | | SINGLE/MULTI | | | | | | | PLE [place] EGD | | | | | | | BALLOON | | | | | | | DILATION | | | | | | | ESOPHAGUS | | | | | | | <30 MM DIAM | | | | | | | [place] | | | | | | | [...] | | | | | [address] | [address] | | | | | [address] [address] | [place] [address] | | | | | [address] | [phone] | | | | | [phone] | | | +--------+ + + + [...] | Removal | +--------+ + +---------+ | 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 male 1940 [id number] Procedure(s): EGD DIL (N/A Mouth) Medical,anesthesia, drug, allergy histories reviewed, NPO status verified. ECG reviewed. Labs reviewed. (+) perioperative beta-afua/statin given/taken. . Review of Systems / Med History Anesthesia History EGD in 2017 - did well with TIVA. 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 (+) congestive heart failure. . Pulmonary [...]
--- OUTSIDE RECORDS SUMMARY | ~2020-07-26 | XMS | Encounter Summary ---
Demographics + + + | Address | [address] | | | [place] [address] | + + + | Home Phone | | + + + | Preferred Language | Unknown | + + + | Marital Status | | + + + | Mu-Ism Affiliation | 1077 | + + + | Race | White | + + + | Ethnic Group | Not or | + + + Author + + + | Author | [facility] | | | and [place] | + + + | Organization | [facility] | | | [...] | [address] | [address] [facility] | | | | | [address] | [address] [facility] | | | | | [address] | [address] | | | | | [phone] | | | +--------+ + + + [...] - 1.030 | EXTERNAL | | | [place], | | | LAB | | | [...]
--- OUTSIDE RECORDS SUMMARY | ~2020-07-26 | XMS | Encounter Summary ---
Demographics + + + | Address | [address] | | | [place] [address] | + + + | Home Phone [...] Team Providers + +------+ + | Care Solar Energy Technician Name | Role | Phone | + +------+ + | Eirn Forrester MD | PCP | | + [...] | | | | | | | ME | | | | | | | ESOPHAGOGAST | | | | | | | RODUODENOSCO | | | | | | | PY TRANSORAL | | | | | | | DIAGNOSTIC | | | | | | | ME EGD | | | | | | | TRANSORAL | | | | | | | BIOPSY | | | | | | | SINGLE/MULTI | | | | | | | PLE ME EGD | | | | | | | BALLOON | | | | | | | DILATION | | | | | | | ESOPHAGUS | | | | | | | <30 MM DIAM | | | | | | | ME | | | | | | | [...] + + | 02/10/ | Surgery | [facility] | Willow Colin MD | EGD WITH DILITATION | | 2019 | | MED CTR [facility] INTRA OP | [address] | | | | | [address] | [address] [place], | | | | | [place] | [place] [address] | | | | | [address] | [phone] | | | | | [phone] | | | +--------+---------+ + + + [...] You can't be awakened Date Last Reviewed: 08/13/201619995962-5147 [employer]. [address] [place] [address]. All [facility] ts reserved. This information is not [...] you take. This includes prescription medicines, o mrz-aor-acdikio medicines, herbs, vitamins, and other supplements. Be [...] icine to relax you. The procedure takes otjgf77tpzkmuk. It does not cause trouble breath ing. [...] Black, tarry, or bloodystools Date Last Reviewed: 04/26/201619992256-1585 [employer]. [address] [place] [address], [place] [address]. All righ ts reserved. This information is [...] prescription medicines Herbs, vitamins, and other supplements Mhej-kov-lggcgzl medicines such as aspirin or ibuprofen Street [...] heart or lung disease Date Last Reviewed: 05/27/201719997878-6475 [employer]. [address] [place] [address]. All righ ts reserved. This information is [...] by: Willow Colin MD, 02/10/2019 13:00 [facility] signed by Willow Colin MD [...] + + + | [address] | [address] [place] [address] | [place] [id number] | [phone] | | [facility] | | | [...] | | POC | | | [facility] | | | | | | [...] [address] | [place] | [phone] | | [facility] | | [address] | | | - LABORATORY | | | | + + + + + Surgical Pathology Exam (02/10/2019 12:00 AM PDT) + + | Specimen | + + | | + + + + + | Narrative | Performed At | + + + | SPECIMEN(S): A GASTRIC BIOPSY SPECIMEN SOURCE: A. GASTRIC | ID PATHOLOGY | | BIOPSY CLINICAL HISTORY: R13.10 [...] technical and professional components were performed by [employer] | | | [employer], [address] [place] [address] | | | (Associate Software Development Engineer: Don Morrell D.O.; CLIA#: [id number]). | | | Diagnostician: Gely Cerna MD [...]
--- OUTSIDE RECORDS SUMMARY | ~2020-07-26 | XMS | Encounter Summary ---
Demographics + + + | Address | [address] | | | [place] [address] | + + + | Home Phone [...] Team Providers + +------+ + | Care Beverage Sales Consultant Name | Role | Phone [...] + + | 09/29/ | Telephone | [facility] | Kristie De Los Santos ANP | Patient Concerns | | 2019 | | CARDIOLOGY [place] | [address] | | | | | [address] | [place], [place] | | | | | [place], [place] | [address] | | | | | [address] | | | | | | [phone] | | | +--------+ + + + [...]
--- OUTSIDE RECORDS SUMMARY | ~2020-07-26 | XMS | Encounter Summary ---
Demographics + + + | Address | [address] | | | [place] [address] | + + + | Home Phone [...] Providers + +------+ + | Care Senior Executive Assistant Name | Role | Phone | [...] [address] | | | | | [address] | [address] | | | | | [address] | [place], [place] | | | | | [place], [facility] floor | [address] | | | | | [place], [place] | [phone] | | | | | [address] | | | | | | [phone] | | | +--------+ + + + [...]
--- OUTSIDE RECORDS SUMMARY | ~2020-07-26 | XMS | Encounter Summary ---
Demographics + + + | Address | [address] | | | [place] [address] | + + + | Home Phone [...] Providers + +------+ + | Care Collar Stitcher Name | Role | Phone | [...] | | | | [address] | [place], [place] | | | | | [place], [facility] floor | [address] | | | | | [place], [place] | [phone] | | | | | [address] | | | | | | [phone] | | | +--------+--------+ + + + [...]
--- OUTSIDE RECORDS SUMMARY | ~2020-07-26 | XMS | Encounter Summary ---
Demographics + + + | Address | [address] | | | [place] [address] | + + + | Home Phone [...] Providers + +------+ + | Care Supervisor Heading Name | Role | Phone | + [...] floor | | | | | | [place], [place] | | | | | | [address] | | | +--------+ + + + [...]
--- OUTSIDE RECORDS SUMMARY | ~2020-07-26 | XMS | Encounter Summary ---
Demographics + + + | Address | [address] | | | [place] [address] | + + + | Home Phone [...] Team Providers + +------+ + | Care Children'S Counselor Name | Role | Phone | [...] + + | 03/01/ | Telephone | [facility] | Kristie De Los Santos ANP | Device Check | | 2020 | | CARDIOLOGY [place] | [address] | | | | | [address] | [place], [place] | | | | | [place], [place] | [address] | | | | | [address] | | | | | | [phone] | | | +--------+ + + + [...]
--- OUTSIDE RECORDS SUMMARY | ~2020-07-26 | XMS | Encounter Summary ---
Demographics + + + | Address | [address] | | | [place] [address] | + + + | Home Phone [...] Team Providers + +------+ + | Care Round Corner Cutter Operator Name | Role | Phone | [...] 2017 | | [address] Justus Hernandez | [address] | EXCHANGE MICRO x 7 | | | | Rd [facility] | [place], [place] | PATH x 2 | | | | Hospital Admitting | [address] | | | | | Desk Located on the | [phone] | | | | | 9th floor | | | | | | [place], [place] | | | | | | [address] | | | +--------+---------+ + + + [...] (s/p PCI x3, CABG x2) complicated by drier tender erich systolic heart failure (EF 45%) due [...] excellent response. He will continue PT/OT at [facility] swing bed unit. Per [...] I-CAPS 280-10-2 mg Cap Generic drug: antiox.mv no.00-evrp7u-ssbvmch0y-ric-top Take 1 capsule by mouth once daily. [...] (Non-Steroidal Anti-Inflammatory Drug) Renal Failure Avoid per Resource Forester recommendations Sulfa (Sulfonamide Antibiotics) Rash Vital Signs [...] Hospital Contact information [address] [place] [id number] CT Location: [facility] swing bed unit Appointments: Dr. Sherman on 07/23/18 at 10:40am. The discharge note was forwarded to the PCP for review. Discharging Physician: Ann Mahmood MD Suggested CPT: 82359 Discharge Management > 30 minute I spent more than 35 minutes ndfp-ug-rauh with the patient of which 70% was [...] | | 0 | | | | no.82-icjx5k-ajlspsx0b-ycs-qsk | mouth once daily. | | | [...] negative pressure wound therapy dressing right knee [id number] Subjective: Doing ok overall. No CP/SOB. Tolerating [...] Plan to DC today to SNF in [place]. SNF can pull sutures at 2 weeks from operat kai date (June 27 is 2 weeks post op). Plan to return to Dr. Sherman' clinic 6 weeks an d also have ID clinic visit on that day. Appreciate [facility] and ID help in managing this complex [...] at that time. Elias Soriano MD [facility]ly [facility] Department of Orthopaedics and Rehabilitation PGY-1 Pager [phone] Ann Vang MD - 4:42 PM PDT [...] (s/p PCI x3, CABG x2) complicated by drier tender erihc systolic heart failure (EF 45%) due to [...] mg daily Dispo: Anticipate discharge tomorrow to [facility] bed unit if renal function is s table Code status: Full code Diet: Regular diet Prophy: warfarin and heparin Ann Mahmood MD Auto Locatorhairspring setter Clinical Hospitalist and Medicine Teaching Services [facility] Pager [phone] Suggested CPT: 48431 Subsequent Visit Detailed/High complexity 35 min I spent 37 minutes zttm-el-jouq with the patient of which 78% was [...] negative pressure wound therapy dressing right knee [id number] Subjective: Doing ok overall. No CP/SOB. Tolerating [...] to home as t ransporting back to [place] may present the patient and family undo hardship. 6. Dressings/Drains: Pulled yesterday? 7. Dispo/Discharge: Anticipate discharge to SNF in next 1-3 days if all criteria met. 8. Follow-up: Please call the clinic to make a follow up appointment in approximately 2 wee ks with ORTHO TRAUMA & FRACTURE, . AP and lateral of R knee at that time. Elias Soriano MD [facility] Department of Orthopaedics and Rehabilitation PGY-1 Pager [phone] atel, Tanvir - 06/16/2018 8:20 AM PDT [...] three and a half hours away from [place]. At this time, we are unsur e of his ability to follow up with an OPAT clinic or if there is a provider near [place], where the patient resides. 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 This patient was staffed [facility] Dr. Villalobos, who agrees with the above assessment and plan unless otherwise documented. Tanvir Ayala, [facility] P SUBJECTIVE Interval Events: No acute events overnight S: patient reports he is feeling well this morning. States he was able to meet with a case monitor and had decided to go to a [...] Mercado MD Division of Hospital Medicine [facility] Pager [phone] I spent more than 35 minutes etox-oo-meee with the patient of which greater than [...] negative pressure wound therapy dressing right knee [id number] Subjective: Doing ok overall, not too much pain in right knee. Looking forward to getting backend python developer to home, "My wants to get back [...] to home as t ransporting back to [place] may present the patient and family undo [...] time. JATIN Dent Orthopaedic Trauma Surgery Pager [phone] Stephan Aguirre MD - 06/14/2018 8:59 AM [...] Mercado MD Division of Hospital Medicine [facility] Pager [phone] I spent more than 35 minutes rzxg-pb-jxbh with the patient of which greater than [...] negative pressure wound therapy dressing right knee [id number] Subjective: Pain improving in R knee. Objective: [...] at that time. SEBAS PLEITEZ MD Pager [phone] tephan Mercado M D - 06/13/2018 9:51 [...] Mercado MD Division of Hospital Medicine [facility] Pager [phone] I spent more than 35 minutes jmdj-lu-rlhh with the patient of which greater than [...] negative pressure wound therapy dressing right knee [id number] Subjective: Painful in R knee today, but [...] at that time. SEBAS PLEITEZ MD Pager [phone] Stephan Aguirre M D - 06/12/2018 1:24 PM PDT HOSPITALIST INPATIENT PROGRESS NOTE Author: Dona Mercado MD PCP: Gilam Estrada MD Hospital Day:1 ID: This is [...] Mercado MD Division of Hospital Medicine [facility] Pager [phone] I spent more than 35 minutes jzgc-cf-ptpc with the patient of which greater than [...] total arthroplasty. Nika martinez was referred to [facility] for joint revision, and presented emergently to [facility] ED from [facility] ([place], [place]). Prior to presentation patient states that [...] mild distal inferior-apical ischemia, LVEF 53%. -10/2015 [facility] with 90% ostial first diagonal, 85% ostial second diagonal, occluded stent of proximal RCA with left to right coronary collaterals, Patent SVG to LAD Ischemic Cardiomyopathy c/b Chronic Systolic Heart Failure and Diastolic Heart Failure -10/2015 [facility] with EF 45% and inferiobasal akinesia Obstructive [...] po daily Carvedilol 12.5mg po daily -Y [place]-3 fatty acid 1,200mg po bid Acetaminophen-codeine po [...] the Social Hx as appropriate. 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 -would consult turret lathe tender for enhanced nutrition in post-operative period [...] as unclear why patient was placed on group home anticoagulation after prior provoked DVT. Dean Ugarte MD Clinical Hospitalist Services [facility] Pager [phone] 06/11/2018 10:44 PM [facility] DEPARTMENT: Hosp ([facility]) - [id number] Place of Service: [facility] [id number] Date of Service: 07/25/2016 [facility] [id number] Modifiers:GC Resident Involved: No Service: PRIMARY HOSPITALIST Suggested CPT: 62213 Initial Visit Comp/High Complexity 70 min I [...] Antibiotics and Frequent lab draws Procedure location: Unit:[facility] Room: 14 Providers: Attending name: Attending physically present: No PICC Nurse name: Frances Fair RN BSN VAT Assisted by Christina March RN BSN VAT Pre-Procedure Consent: written consent obtained Consent given by: Patient Patient identity confirmed per protocol: Yes Team Pause: Immediatly prior to the procedure a pause per protocol was called. A pause veri fies correct patient, procedure, equipment, phlebotomy support tech and site/side marked as required. [...] area Basilic vein. 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 Postoperative Diagnosis: same Procedures Performed: 1. Right knee arthrotomy with drainage for infection and polyethylene exchange 2. Application TINO disposible negative pressure wound therapy dressing right knee [id number] Anesthesia: General endotracheal anesthesia. Implants: excahgned alisha triathalon poly size 15, 13mm EBL: 50 Complications: None Specimens: 6 cultures, 1 path Indication For Procedure: Solo Alves was transferred to [facility] for sepsis after previosuly having been treated with a right total knee. He ws medically unstable and [facility] to [facility]. An apsirate [...] Patricia wrap. He was then awoken from [facility] and transported back to the postanesthesia [...] as it stands. Ghassan Sherman MD, MPH Director Telehealth, Dept. of Orthopaedics [address] [place] [address] [email or web address] mented in [...] patient will need to follow up at [facility] on July 23 with orthopedics. During t hat time,we will cooridnate so that he may follow up with ID/OPAT in regards to his treatmen t. He will be discharged to [facility] to receive inpatient therapy and OPAT. 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 at [facility]. If patient is discharged fr om [...] the primary team. This patient was staffed [facility] Dr. Villalobos, who agrees with the above assessment and plan unless otherwise documented. Tanvir Ayala, [facility] P SUBJECTIVE Interval Events: No acute events [...] continued via OPAT at [facility] Microbiology Data: Source Date Results Tissue cultures [...] tablet allopurinol 300 mg oral tablet antiox.mv no.06-zmau7b-fxnpefm8u-lrj-evg (I-CAPS) 280-10-2 mg oral capsule carvedilol 12.5 [...] Anticoagulation Clinic/Provider: New PCP Dr. Don Estrada ([phone]) Date INR Warfarin Dose 06/17/2018 1.78 2.5 [...] make recommendations. Please page clinical ph armacist (#[phone]) or call central inpatient pharmacy ([phone]) with questions. Rashard Jacob Pharm. D. Candidate Associated attestation - Mary Wade [facility] - 06/17/2018 11:14 AM PDT--I have reviewed the note written by student services counselor Rashard Jacob and I agree with the content and his plan for warfarin on this patient. Thank you, Mary Mauro [facility]. Pager [phone] Wade Mary [facility] - 06/16/2018 1:26 PM PDTFormatting of [...] Anticoagulation Clinic/Provider: new PCP Dr. Don Estrada ([phone]) Date INR Warfarin Dose 06/16/2018 1.51 2.5mg [...] make recommendations. Please page clinical ph armacist (#[phone]) or call central inpatient pharmacy ([phone]) with questions. Thank you for consult, Mary Wade [facility]. Pager [phone] Trish Blankenship MD - 10:46 AM PDTAssociated Order(s): IP CONSULT TO INFECTIOUS DISEASESFormatting of thi s note might be different from the original. [facility] Infectious Diseases OPAT Referral for Discharge Planning Team B: OPAT RN Jaye Young, Office: [phone], Pager: [phone] ID Diagnosis: PJI Antibiotic agent and dosing: [...] (pt has an ortho appointment 10:40 ) Tick Sewer: For all patients requiring IV antibiotic therapy, please route your OPAT [place] n of Care Note (.CMOPAT) to [facility] "p OPAT/Infectious Diseases clinic" Pool at discharge. [...] and make recommendations. Please page clinical pharmacist (#[phone]) or call central inpatient pharmacy ([phone]) with questions. Subjective/Objective: Allergies: Nsaids (non-steroidal anti-inflammatory [...] by his new PCP Don Estrada MD ([phone]). The patient reports Dr Estrada wanted him [...] D. 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 We will discuss [facility] OPAT vs outside providers. Formalized recs pending Recommendations were communicated directly to the primary team. This patient was staffed [facility] Dr. Villalobos, who agrees with the [...] arthritis. The patient was then transferred from [place] to [facility] for fu rther evaluation. While here, imaging [...] 300 mg by mouth once daily. antiox. no.17-gqaa0d-jihydkn6l-jjx-igr (I-CAPS) 280-10-2 mg oral capsule Take 1 [...] (Non-Steroidal Anti-Inflammatory Drug) Renal Failure Avoid per Resource Forester recommendations Sulfa (Sulfonamide Antibiotics) Rash Social History [...] care. Ishaan Villalobos MD Division of Infectious DiseasesNorfolk, Ramon, PharmD - 06/14/2018 7:36 PM PDT [...] lab draw. - Please page clinical pharmacist (#[phone]) or call central inpatient pharmacy ([phone]) wit h questions. Subjective/Objective: Júnior Mas, a [...] CULTURE, TISSUE-PROSTHETIC JOINT INFECTION AER AND MARIELOS [[id number]] (Abnormal) KP LAB Collec dilcia: 06/12/18 1354 Lab Status: Preliminary result Specimen: Tissue from Knee - right Updated: 06/14/18 1344 CULTURE RESULT LAB Staphylococcus epidermidis (A) Ref Range: Narrative: Culture Report: Staphylococcus epidermidis Gram Stain: No squamous epithelial cells Rare polymorphonuclear cells No organisms seen Thank you, Ramon Mercado, PharmD, [facility] Clinical Pharmacist alickn, Torey Adame [...] and make recommendations. Please page clinical pharmacist (#[phone]) or call central inpatient pharmacy ([phone]) with questions. Subjective/Objective: Júnior Mas, a 78 [...] by his new PCP Don Estrada MD ([phone]). The patient reports Dr Estrada wanted him [...] you for the consult, Evgeny Akers PharmD, [facility] Pager [phone] Evgeny Robles PharmD - 06/13/2018 8:41 AM [...] on stable regimen. Please page clinical pharmacist (#[phone]) or call central inpatient pharmacy ([phone]) with q uestions. Subjective/Objective: Indication: infectious disorder of joint Therapy start date: 06/12/18 Anticipated duration: TBD Goal trough: ~15 mg/L Urine output: unavailable for most of the past 24 hours Renal function: stable , current SCr 1.66 (Baseline SCr 1.6-1.8) Actual body weight: Weight: 86.7 kg (191 lb 1.6 oz) (06/13/18 4348) Pertinent cultures/sensitivities: 06/12/18 blood and tissue cultures - in process Thank you for the consult, Evgeny Akers PharmD, [facility] Pager [phone] Harley Echols MD - 06/11/2018 7:27 PM PDT [facility] DEPARTMENT OF ORTHOPAEDICS & REHABILITATION HISTORY & [...] done [place] [address] Hurst at for advance d DJD. He's had no problems with his knee replacement until 2 weeks ago. Denies any trauma, recent infection, colonoscopy or dental procedure. He has chronic venous stasis with blister formation on the RLE. He denies any pain or complaints elsewhere. He presents as a transfer from an [facility] hospital where there was a concern for a septic prost hetic knee. ESR was 112, CRP 159 and WBC count of 8. An arthrocentesis was performed today w hich demonstrated 78K WBC (95% PMN), 90K RBCs, no crystal and no organisms seen with culture s pending. He was transferred to [facility] for further management of a septic prosthetic knee. Implants: Tiger Triathlon Total Knee System 1. Size 4 [...] up appointment in approximately 2 weeks w [facility] ORTHO TRAUMA & FRACTURE, The orthopaedics consult pager is [phone], please call with questions. Harley Weaver MD Resident Department of Orthopaedics Pager [phone] [facility] Department of Orthopaedics & Rehabilitation [phone] [facility] Mail Code: OP31 [facility] [id number] Associated attestation - Ghassan Sherman MD - [...] call me for questions. GHASSAN SHERMAN MD [facility] [address] [id number] [place] [address] documented in this encounter ED Notes Carla [...] (H) 0.70 - 1.30 mg/dL EGFR - BURMESE 39 (L) >60 mL/min EGFR NON -BURMESE 32 (L) >60 mL/min SODIUM, PLASMA (LAB) [...] total knee replacement in 2013 done in [facility]. Right k nee also became more swollen at that time, though without any warmth or redness. Pain worse with any movement and better at rest. He was evaluated by his PCP and started on coumadin for question of DVT, though RLE ultraso und was negative. Seen by Dr. René Yen (orthopedics) in [place] 06/09 with the following labs. - WBC [...] 06/11/2018 Heart block 06/11/2018 Pacemaker-dependent due to kaguyuk cardiac rhythm insufficient to support life 8 [...] exam, work-up with his orthopedic surgeon and [place], he has a right knee prosthetic joint infection. Laboratory and imaging results including ESR, CRP were reviewed and interpreted, and notabl e for the following: - significantly elevated ESR and CRP - arthrocentesis at [place] with 79,000 WBCs The patient received the following in the emergency department (including medications, inte rventions, consultations, and reassessments): - orthopedics consultation, plan for [place] tomorrow Given this, patient required admission for further care. We spoke to the [facility] ist service, who accepted patient [...] Information: Patient discharging to swing bed at [facility] in [facility]. Reviewed DC to SNF AVS with patient and family, all questions answered, reinforced fo llow up appointments per AVS. PICC line in RUE with dressing CDI at discharge. TINO dressing CDI with green light flashing at discharge. Telephone report given to [facility] at [facility] at 1125. Transportation provided by [...] njury prevention even in recliner chair. (06/15/18 0920) [facility] IP NURSE HANDOFF: [facility] course events: [...] njury prevention even in recliner chair. (06/15/18 5574) [facility] IP NURSE HANDOFF: [facility] hospital course events: [...] Met Case Management OPAT Plan of Care: [facility] hospital discharge date: 06/17/2018 This patient will be followed for all post hospital OPAT care needs by: [facility] OPAT/Infectiou s Diseases Clinic, ; IV antibiotic [...] throughout session other than pt and therapist: manager rehab Current unit: 9k Brief Hospital Course:Júnior [...] with FWW: minimum assist, 15 feet with manager rehab stand by assist and follow ing with wheelchair. Chair to chair transfer front wheeled walker and minimum assist Pt left up in recliner chair, call light/urinal and belongings all in reach. [facility] BASIC MOBILITY Difficulty turning over in [...] to do/total assistance - Total/Dependen t Assist [facility] Basic Mobility Total Score 14 Interpretation of [facility] Short Form - Basic Mobility: CMS [...] to be determined . Umm Joy, BRICE [address] andoff - Emily Covarrubias RN - 06/16/2018 [...] njury prevention even in recliner chair. (06/15/18 5061) [facility] IP NURSE HANDOFF: [facility] hospital course events: [...] As evidenced by: Poor intake tonight from 7660-3322 despite encouragement. He states that his water [...] njury prevention even in recliner chair. (06/15/18 0956) [facility] IP NURSE HANDOFF: [facility] hospital course events: [...] throughout session other than pt and therapist: manager rehab and student observer Current unit: 9k Brief [...] cell phone and water all in reach. [facility] BASIC MOBILITY Difficulty turning over in [...] to do/total assistance - Total/Dependen t Assist [facility] Basic Mobility Total Score 9 Interpretation of [facility] Short Form - Basic Mobility: CMS [...] Equipment recommendations: to be determined [place] [id number] andoff - Maria Dolores Gurrola RN - [...] njury prevention even in recliner chair. (06/15/18 3751) [facility] IP NURSE HANDOFF: [facility] hospital course events: [...] at EOB finishing breakfast with family at [facility]. Recliner found and placed in room [...] nutrient distribution type or amount Nutrition Assessment: beam sealer received. Pt does not like food here, [...] intake Following, Ivana Mendez, MS, RD, LD, [facility] Pager #: [phone] Comments: Jnúior Mas is a 78 y.o. 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 Monitor UOP- no ouput from 0841-3023. [facility] notified- BMS ordered. encourage fluids. MOBILITY: 2pa [...] PM PDT Physical Therapy Evaluation and Treatment [id number] [facility] Day: 3 [...] going down ramp) Vision/Hearing: hearing aids (very CABAZON; states he refuses hearing aids) Patient / Family Goal: patient will not state; patient : For patient to return home. Language: Danish. Barriers: Very CABAZON, not fully attentive. Pain: "lots"; refuses to [...] assist after focus on m idline. PT, FINISHER OPERATOR and patient encourage patient to get up to a chair, with assistance, patient r efused 4 times. Outcome Measure(s): 5 Time Sit to Stand: unable. >15 seconds predicts recurrent fallers [facility] BASIC MOBILITY Difficulty turning over in [...] to do/total assistance - Total/Dependen t Assist [facility] Basic Mobility Total Score 9 Interpretation of [facility] Short Form - Basic Mobility: CMS [...] underestimate Ended session: Patient supine in bed. FINISHER OPERATOR attending to patient. ASSESSMENT: Patient presents [...] RN - 06/14/2018 2:37 AM PDTNursing Handoff [facility] IP NURSE HANDOFF: [facility] hospital course events: [...] RN - 06/13/2018 1:32 AM PDTNursing Handoff [facility] IP NURSE HANDOFF: [facility] hospital course events: [...] Saige Rivera RN - 06/12/2018 8:36 PM [facility]charge Criteria (Stable For Transfer): [...] information: see anesthesia record Functional Epidural: No NURSE EXTERN: No Respiratory: RR: 17, O2 Sat: 98 %, O2 Delivery: Nasal cannula Breath Sounds: WDL Except (SEUN - not diagnosed) TAYLOR: LLL: RUL: RLL: SEUN No Comment: none Cardiac: BP: 113/47 HR: 94 GI: Nausea/Vomiting Status: No Signs/Symptoms: Interventions: Assessment: Comments: toleratingPO : Last void: at 1900 Contact Name: Beth Contact Number: [phone] Family contacted: Yes Comment:updated family Belongings:none in [...] in the provider note. Sandra Valle MD [facility], [facility] ransfer Note - Arnie Busby ANP - 06/11/2018 3:19 PM PDT Call from Dr. Eric Yen, [facility] Pt with hx of CHF with significant fluid retention, right knee replacement, chronic leg ulc ers has infected total knee. Presented to clinic today with right knee swelling and pain. Right knee aspirate today: 79k white cells Markedly elevated CRP and sed rate Temp 99.4, vitals stable and normal Spoke with [facility] orthopedic surgeon Dr. Leon who advised transfer to [facility] ED Pt coming now via POV [facility] Rita Sandhu - 06/11/2018 3:19 PM PDTPt with post procedure infection, R total knee. Connected ref with ROCAEL Sanders. [facility] Rita Barker - 06/11/2018 2:09 PM PDTRef previously consulted [facility] ortho Dr. Maral Leon who advised PT to come to [facility] ED. Advised Dr. Yen to call ED [...] + + + | [facility] | [address] | [place], [place] | | | OPHELIA LOZADA OF CARE | [address] | [address] | | | TESTS | | | [...] | + + + + + | [facility] | [address] | [place] [address] | | | SERVICES, CORE | DANI [...] | | | LABORATORY | | | BURMESE | | | SERVICES, | | | [...] | + + + + + | [facility] | [address] | [place] [address] | | | SERVICES, CORE | DANI [...] [facility] | [address] | [place], [place] | | | OPHELIA LOZADA OF FUAD | [address] | [address] | | | TESTS | | | [...] | | POC | | | OPHELIA LOAZDA | | | | | | OF [...] [facility] | [address] | [place], [place] | | | [facility] | [address] | [address] | | | TESTS | | | | + + + + + X-RAY PORTABLE CHEST 1 VIEW (06/16/2018 4:29 PM PDT) + + | Specimen | + + | | + + + + + | Narrative | Performed At | + + + | EXAM: TX CHEST 1 VIEW HISTORY: PICC placement. Prosthetic [...] Interface - 06/16/2018 4:44 PM PDT EXAM: TX CHEST 1 | | VIEW HISTORY: PICC [...] draws Procedure location: | | | Unit:9 [facility] Room: 14 Providers: Attending name: Attending [...] | | | correct patient, procedure, equipment, phlebotomy support tech and site/side | | | [...] | area Basilic vein. Catheter lot number: [id number] with a length of 55 | | [...] [facility] | [address] | [place], [place] | | | KIERRA POINT OF CARE | [address] | [address] | | | TESTS | | | [...] | + + + + + | [facility] | [address] [facility] | [place] [address] | | | SERVICES, CORE | DANI [...] | | | LABORATORY | | | BURMESE | | | SERVICES, | | | [...] | + + + + + | [facility] | [address] | [place] [address] | | | SERVICES, CORE | DANI [...] [facility] | [address] | [place], [place] | | | OPHELIA LOZADA OF CARE | [address] | [address] | | | TESTS | | | [...] DARSHANA | [address] | [place], [place] | | | OPHELIA LOZADA OF CARE | [address] | [address] | | | TESTS | | | [...] (H) | 70 - 99 mg/dL | [facility] - | | | GLUCOSE, | | [...] [facility] | [address] | [place], [place] | | | OPHELIA LOZADA OF CARE | [address] | [address] | | | TESTS | | | [...] | + + + + + | [facility] | [address] [facility] | [place] [address] | | | SERVICES, CORE | DANI [...] | | | LABORATORY | | | BURMESE | | | SERVICES, | | | [...] | + + + + + | [facility] | [address] [facility] | [place] [address] | | | SERVICES, CORE | DANI [...] [facility] | [address] | [place] [address] | | | SERVICES, CORE | PARK [...] [facility] | [address] | [place] [address] | | | SERVICES, CORE | PARK [...] | + + + + + | [facility] | [address] [facility] | [place] [address] | | | SERVICES, CORE | PARK [...] [facility] | [address] | [place] [address] | | | KAREEM FINCH | DANI [...] [facility] | [address] | [place], [place] | | | KIERRA POINT OF CARE | [facility] | [address] | | | TESTS | | | [...] | | | LABORATORY | | | BURMESE | | | SERVICES, | | | [...] is appropriate. | LABORATORY | | Page [phone] or call [phone] with questions. Thank you. GFR is | [...] | + + + + + | [facility] | [address] | [place] [address] | | | SERVICES, CORE | DANI [...] + + | [facility] | [address] [facility] | [place] [address] | | | SERVICES, KAREEM | DANI [...] is appropriate. | LABORATORY | | Page [phone] or call [phone] with questions. Thank you. | SERVICES, CORE | + + + + + + + + | Performing | Address | City/State/Zipcode | Phone Number | | Organization | | | | + + + + + | [facility] | [address] | [place] [address] | | | SERVICES, KAREEM | [address] [...] [facility] | [address] | [place], [place] | | | OPHELIA LOZADA OF CARE | [address] | [address] | | | TESTS | | | [...] DARSHANA | [address] | [place], [place] | | | [facility] | [address] | [address] | | | TESTS | | | [...] | + + + + + | [facility] | [address] [facility] | [place] [address] | | | SERVICES, CORE | DANI [...] | | | LABORATORY | | | BURMESE | | | SERVICES, | | | [...] | + + + + + | [facility] | [address] | [place] [address] | | | KAREEM FINCH | DANI [...] [facility] | [address] | [place], [place] | | | KIERRA POINT OF CARE | [address] | [address] | | | TESTS | | | [...] [facility] | [address] | [place], [place] | | | [facility] | [address] | [address] | | | TESTS | | | [...] [facility] | [address] | [place], [place] | | | OPHELIA LOZADA OF CARE | [address] | [address] | | | TESTS | | | [...] + + | ECG | Borderline prolonged TX | | [facility] | | | [...] | + + + + + | [facility] DE[facility] OF | [address] | [place], [place] | | | CARDIOLOGY | [address] | [address] | | + + + + + [...] D[facility]NA | [address] | [place], [place] | | | OPHELIA LOZADA OF CARE | [facility] | [address] | | | TESTS | | | [...] | + + + + + | [facility] | [address] [facility] | [place] [address] | | | SERVICES, CORE | [address] [...] | | | LABORATORY | | | BURMESE | | | SERVICES, | | | [...] | + + + + + | [facility] | [address] | [place] [address] | | | SERVICES, CORE | PARK [...] | + + + + + | [facility] | [address] | [place] [address] | | | SERVICES, CORE | DANI [...] | | | LABORATORY | | | BURMESE | | | SERVICES, | | | [...] | + + + + + | [facility] | [address] | [place] [address] | | | SERVICES, CORE | PARK [...] [facility] | [address] | [place] [address] | | | SERVICES, | [address] [...] | + + + + + | [facility] | [address] | [place] [address] | | | SERVICES, | [address] [...] | + + + + + | [facility] | [address] | [place] [address] | | | KAREEM FINCH | [address] [...] [facility] | [address] | [place] [address] | | | SERVICES, | [address] [...] | + + + + + | [facility] | [address] | [place] [address] | | | SERVICES, CORE | DANI [...] (H) | 70 - 99 mg/dL | [facility] - | | | GLUCOSE, | | [...] [facility] | [address] | [place], [place] | | | KIERRA POINT OF CARE | [address] | [address] | | | TESTS | | | [...] | | | LABORATORY | | | BURMESE | | | SERVICES, | | | [...] | + + + + + | [facility] | [address] | [place] [address] | | | KAREEM FINCH | DANI [...] | + + + + + | [facility] | [address] | [place] [address] | | | SERVICES, CORE | DANI [...] (H) | 70 - 99 mg/dL | [facility] - | | | GLUCOSE, | | [...] [facility] | [address] | [place], [place] | | | [facility] | [address] | [address] | | | TESTS | | | | + + + + + PROCEDURE NOTE (06/12/2018 2:57 PM PDT) + + + | Narrative | Performed At | + + + | Ghassan Sherman MD 06/17/2018 2:15 PM Date of Service: | | | 08/01/2015 Attending Surgeon: Ghassan Sherman MD | | | Dinker(s): mesfin thompson MD Preoperative Diagnosis: 1. 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 Postoperative Diagnosis: | | | same Procedures Performed: 1. Right knee arthrotomy with | | | drainage for infection and polyethylene exchange 2. Application | | | TINO disposible negative pressure wound therapy dressing right knee | | | [id number] Anesthesia: General endotracheal anesthesia. | | | Implants: excahgned alisha triathalon poly size 15, 13mm EBL: 50 | | | Complications: None Specimens: 6 cultures, 1 path Indication | | | For Procedure: Solo Alves was transferred to [facility] for sepsis | | | after previosuly [...] | | stands. Ghassan Sherman MD, MPH Director Telehealth, Dept. of | | | Orthopaedics [place] [address] | | | [place]ic[address]. [address] [place] [address] | | | [email or web address] | | + [...] [facility] | [address] | [place], [place] | | | OPHELIA LOZADA OF CARE | [address] | [address] | | | TESTS | | | [...] [facility] | [address] | [place], [place] | | | [facility] | [address] | [address] | | | TESTS | | | [...] - | | | | | | [place] | | + + + + + [...] + | [facility] - | [address] | [place] [address] | | | [place] | | | [...] + | [facility] - | [address] | [place] [address] | | | [place] | | | [...] + | [facility] | [address] | [place] [address] | | | [place] | | | [...] + | [facility] - | [address] | [place] [address] | | | [place] | | | [...] | + + + + + | [facility] - | [address] | [place] [address] | | | [place] | | | [...] | | | | | | number [id number].A. Knee, | | | | | | [...] | + + + + + | [facility] | [address] | [place] [address] | | | PATHOLOGY | [address] [...] - | | | | | | [place] | | + + + + + [...] + | [facility] - | [address] | [place] [address] | | | [place] | | | | + + + [...] [facility] | [address] | [place], [place] | | | OPHELIA LOZADA OF CARE | [facility] | [address] | | | TESTS | | | [...] [facility] | [address] | [place], [place] | | | OPHELIA LOZADA OF CARE | [facility] | [address] | | | TESTS | | | [...] [facility] | [address] | [place], [place] | | | KIERRA POINT OF CARE | [address] | [address] | | | TESTS | | | [...] | + + + + + | [facility] | [address] | [place] [address] | | | SERVICES, CORE | DANI [...] [facility] | [address] | [place] [address] | | | STEF, CORE | [address] [...] | + + + + + | [facility] | [address] | [place] [address] | | | SERVICES, CORE | PARK [...] | + + + + + | [facility] | [address] | [place] [address] | | | SERVICES, CORE | DANI [...] | + + + + + | [facility] | [address] | [place] [address] | | | STEF | DANI ALEXIS [...] | + + + + + | [facility] | [address] | [place] [address] | | | KAREEM FINCH | DANI [...] | | | LABORATORY | | | BURMESE | | | SERVICES, | | | [...] the MDRD equation recommended by the | [facility] | | National Kidney Disease Education Program. [...] [facility] | [address] | [place] [address] | | | SERVICES, CORE | DANI [...] 36.5 (H) | 26.0 - 36.0 | [facility] | | | | | seconds | [...] | + + + + + | [facility] | [address] | [place] [address] | | | SERVICES, CORE | [address] [...] (H) | 0.90 - 1.20 INR | [facility] | | | | | | LABORATORY [...] [facility] | [address] | [place] [address] | | | SERVICES, CORE | [address] [...] [facility] | [address] | [place] [address] | | | SERVICES, CORE | [address] [...] [facility] | [address] | [place] [address] | | | SERVICES, KAREEM | [address] | | | + + + + + ED INFORMATION EXCHANGE (06/11/2018 6:04 PM PDT) + + | Specimen | + + | | + + + + + | Narrative | Performed At | + + + | [id number] This patient has registered at the [place] | [facility] | | [facility] Emergency Department For more | MEDICAL | | information visit: | TECHNOLOGIES | | [email or web address] | | | 35ffec Security Events No [...] Complaint Aug | | | 2017 [facility] [place] Emergency | | | Emergency 10,800. REF Recent Inpatient Visit | | | Summary No recorded inpatient visits. E.D. Visit Count (12 mo.) | | | Facility Visits [facility] 1 Total 1 | | [...] | | facilities for additional information. 2018 [employer] | | | [employer]. - [place], [place] - | | | [email or web address] | | + + + + + | Procedure Note | + + | Service Account, Rtf Results Inbound - 06/11/2018 6:06 PM PDT Formatting of this | | note might be different from the original.DANIEL?NOTIFICATION?06/11/2018 18:04?MAXWELL | | JÚNIOR? patient has registered at the [facility] [employer] | | [place] [facility] For more information visit: | | [email or web address] Security | | EventsNo recent Security Events currently on fileED Care GuidelinesThere are currently | | no ED Care Guidelines in [place]ANI[place] for this patient. Please check your facility's medical | | records system.Recent Emergency Department Visit SummaryAdmit Date Facility [facility] State | | Type Major Type Diagnoses or Chief Complaint Jun 11, 2018 [facility] | | [facility] Emergency Emergency 10,800. REF Recent Inpatient Visit | | SummaryNo recorded inpatient visits. E.D. Visit Count (12 mo.)Facility Visits [place] | | [facility] 1 Total 1 Note: Visits indicate [...] aforementioned facilities for additional information. ? 2018 [employer] | | [employer]. [facility], [place] - [email or web address] | |Facility Visits | |[facility] 1 | |Total 1 | [...] facilities for additional information. | |? 2018 [employer] - [place], [place] - [email or web address] | + + + + + + + | Performing | Address | City/State/Zipcode | Phone Number | | Organization | | | | + + + + + | [employer] | [address] | [place], [place] | [phone] | | TECHNOLOGIES | [address] | [address] | | + + + + + [...] oral, NEEDED, Starting | | | [facility] 06/11/18 at 2306, Until Wed | [...]
--- OUTSIDE RECORDS SUMMARY | ~2020-07-26 | XMS | Encounter Summary ---
Demographics + + + | Address | [address] | | | [place] [address] | + + + | Home Phone | | + + + | Preferred Language | Unknown | + + + | Marital Status | | + + + | Nondenominational Affiliation | 1077 | + + + [...] Providers + +------+ + | Care Carpenter Assistant Name | Role | Phone | [...] | | | | | [address] | [address] [place] | | | | | [place] | [address] | | | | | [address] | [phone] | | | | | [phone] | | | +--------+ + + + [...] explained and consent obtained. Patient transported to [facility], | | | 7 | | Monitors [...] 02/10/19 1400 by | | eral | cccq-xzc-hjjszh catheter system; | Neyda Johnson RN | [...] Duane L Maxwell 78 y.o. male 1940 [id number] Procedure(s) EGD WITH DILITATION (N/A Mouth) Cooperates? [...] signed by Thang Sarmiento MD 02/10/2019 14:13 [facility] nesthesia Preprocedure Evaluation - Thang Sarmiento MD - 2018 7:36 AM PDT ANESTHESIA PREANESTHESIA EVALUATION Duane Mas 78 y.o. 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 (+) congestive heart failure. . Pulmonary [...] situ - MEDTRONIC Class I, BMI 30-34.9 detention current use of anticoagulant - COUMADIN Beta Blockers - Daily Use Diabetes mellitus, type II - ORAL Control Zxiym-wp-Ebqlfq lying flat DAIJA II Inhibitors - Daily Use Chronic renal insufficiency, stage 4 (severe) . Electronically Signed by: Thang Sarmiento MD ESi date/time: 02/10/2019 7:36 documented in [facility] s encounter Miscellaneous Notes Addendum Note - Thang Sarmiento MD - 02/10/2019 2:50 PM PDTFormatting of this note mi ght be different from the original. Addendum created 02/10/19 1550 by Thang Sarmiento MD SmartForm saved documented [...]
--- OUTSIDE RECORDS SUMMARY | ~2020-07-26 | XMS | Encounter Summary ---
Demographics + + + | Address | [address] | | | [place] [address] | + + + | Home Phone [...] Team Providers + +------+ + | Care Pm Technician Name | Role | Phone | [...] + | 12/08/ | Telephone | [facility] | Kristie De Los Santos ANP | Device Check | | 2020 | | [facility]ARDIOLOGY [place] | [address] | | | | | [address] | [place], [place] | | | | | [place], [place] | [address] | | | | | [address] | | | | | | [phone] | | | +--------+ + + + [...] for patient to schedule follow up with Krisite De Los Santos and device clinic. Patient no showed in August 2019. Device: Medtronic pacemaker [facility] Plan of Treatment +--------+ [...]
--- OUTSIDE RECORDS SUMMARY | ~2020-07-26 | XMS | Encounter Summary ---
Demographics + + + | Address | [address] | | | [place] [address] | + + + | Home Phone [...] Team Providers + +------+ + | Care Fishing Lure Assembler Name | Role | Phone | [...]
--- OUTSIDE RECORDS SUMMARY | ~2020-07-26 | XMS | Encounter Summary ---
Demographics + + + | Address | [address] | | | [place] [address] | + + + | Home Phone [...] + + + | Author | [facility] | | | and [place] | + + + | Organization | [facility] | | | [...] Providers + +------+ + | Care Construction Stonemason Name | Role | Phone | + +------+ + | Erin Forrester MD | PCP | | + +------+ + Encounter Details +--------+ + + + + | Date | Type | Department | Care Team | Description | +--------+ + + + + | 10/09/ | Orders Only | [facility] | Robel Ricci | | | 2014 | | CARDIOLOGY [place] | [address] | | | | | N[facility] [address] | Kiran Chou | | | | | [address] | [place] [address] | | | | | [place], [place] | [phone] | | | | | [address] | | | | | | [phone] | | | +--------+ + + + [...] Performed At | + + + | [facility] CARDIOLOGY Nuclear Lexiscan Stress Test History: [...] Rocky, Rad Conversion - 06/17/2019 11:57 PM [facility] | | Lexiscan Stress Test History:75 Year [...]
--- OUTSIDE RECORDS SUMMARY | ~2020-07-26 | XMS | Encounter Summary ---
Demographics + + + | Address | [address] | | | [place] [address] | + + + | Home Phone [...] Team Providers + +------+ + | Care Research And Development Researcher Name | Role | Phone | + +------+ + PCP | Unavailable | + +------+ + Encounter Details +--------+ + + + + | Date | Type | Department | Care Team | Description | +--------+ + + + + | 09/17/ | Hospital | [facility] | Zay Francis, | | | 1998 - | Encounter | [facility] | [address] | | | | | CARDIAC TELEMETRY | [address] [place] | | | 09/21/ | | [address] | [address] | | | 1998 | | [place] | [phone] | | | | | [address] | | | | | | [phone] | | | +--------+ + + + [...]
--- OUTSIDE RECORDS SUMMARY | ~2020-07-26 | XMS | Encounter Summary ---
Demographics + + + | Address | [address] | | | [place] [address] | + + + | Home Phone [...] Team Providers + +------+ + | Care Ton Container Shipper Name | Role | Phone | + [...] | | | | [facility] | [place], [place] | | | | | Pavilion, 3rd floor | [address] | | | | | [place], [place] | [phone] | | | | | [address] | | | | | | [phone] | | | +--------+ + + + [...] Cottrell Ma - 06/24/2018 12:16 PM PDTThis [facility] been [facility] into the [facility] system of care. Please contact [facility] ID at phone: [phone]; fa x: [phone] with any questions or concerns regarding this [...] sh e is fine w/ coming to [place] twice in a week as there were unsuccessful attempts at setti ng up joint appt. Care Coordination issues needing clarification: none when asked. elephone Encounter - Layne Huang - 06/18/2018 4:10 PM PDTDr. Rinkuwilliam only sees pts at [facility] on '. Could a provide r see the pt as a joint on , 07/23? elephone Encounter - Jaye Winchester RN - 06/17/2018 1:05 PM PDTFormatting o f this note might be different from the original. 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 During t hat time,we will cooridnate so that he may follow up with ID/OPAT in regards to his treatmen t. He will be discharged to [facility] to receive inpatient therapy and OPAT. Recommendations: 1. Change Cefazolin 2g IV q8 hours, with renal adjustments as required 2. Tentative duration of Cefazolin will be 6 weeks from the time of surgery (SOT: 06/12 - [place] T: 07/24) 3. Discussed with patient that OPAT can cont. at [facility]. If patient is discharged fr om there, [...]
--- OUTSIDE RECORDS SUMMARY | ~2020-07-26 | XMS | Encounter Summary ---
Demographics + + + | Address | [address] | | | [place] [address] | + + + | Home Phone | | + + + | Preferred Language | Unknown | + + + | Marital Status | Unknown | + + + | Mu-Ism Affiliation | PRO | + + + [...] Team Providers + +------+ + | Care Installation Superintendent Name | Role | Phone | [...] | | | | [facility] | [place], [place] | | | | | [place], [facility] floor | [address] | | | | | [place], [place] | [phone] | | | | | [address] | | | | | | [phone] | | | +--------+--------+ + + + [...]
--- OUTSIDE RECORDS SUMMARY | ~2020-07-26 | XMS | Encounter Summary ---
Demographics + + + | Address | [address] | | | [place] [address] | + + + | Home Phone [...] Team Providers + +------+ + | Care Inspector Handbag Frames Name | Role | Phone | + +------+ + | Gilberto Estrada MD | PCP | | + +------+ + Encounter Details +--------+ + + + + | Date | Type | Department | Care Team | Description | +--------+ + + + + | 06/11/ | Emergency | [facility] Emergency | Sandoval Hyde, | | | 2017 | | Department [address] | [address] | | | | | [address] | [place], [place] | | | | | [facility] | [address] | | | | | [place], [place] | [phone] | | | | | [address] | | | | | | [phone] | | | +--------+ + + + [...] | | 0 | | | | [id number] | mouth once daily. | | | [...] Leon who advised PT to come to [facility] ED. Advised Dr. Yen [...]
--- OUTSIDE RECORDS SUMMARY | ~2020-07-26 | XMS | Encounter Summary ---
Demographics + + + | Address | [address] | | | [place] [address] | + + + | Home Phone [...] Team Providers + +------+ + | Care Geoscience Laboratory Technician Name | Role | Phone | [...] | | | | | [facility] | [address] | | | | | Hospital Admitting | [place], [place] | | | | | Desk Located on the | [address] | | | | | 9th floor | [phone] | | | | | [facility] [place] | | | | | | [address] | Princess Ward MD | | | | | | [address] | | | | | | [place], | | | | | | [place] [address] | | | | | | [phone] | | | | | | | [...] Line | Standard; Left; 20g; 06/12/18; | REST ROOM ATTENDANT | | | | 1617; Per order | | | +--------+ + + + | Periph | 06/12/18; 1323; Right; Wrist; 20 | 06/12/18 1323 by | 06/14/181999 by | | eral | g; 06/14/18; 1999 | Robel Page, | Gabriel Zapata RN | | IV | | REST ROOM ATTENDANT | | +--------+ + + + | [...] be different from the original. Duane Mas [id number] Allergies Allergen Reactions Sulfa (Sulfonamide Antibiotics) Rash [...] GRAHAM. nesthesia Procedure N otes - Robel Pgae CRNA - 06/12/2018 1:48 PM PDTAssociated Order(s): [...] e different from the original. 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
--- OUTSIDE RECORDS SUMMARY | ~2020-07-26 | XMS | Encounter Summary ---
Demographics + + + | Address | [address] | | | [place] [address] | + + + | Home Phone [...] Team Providers + +------+ + | Care Gta Name | Role | Phone | + [...] | | | | Loop Phys[facility] | [place], [place] | | | | | Pavilion, 3rd floor | [address] | | | | | [place], [place] | [phone] | | | | | [address] | | | | | | [phone] | | | +--------+ + + + [...] Cottrell Ma - 06/24/2018 12:16 PM PDTThis [facility] into the [facility] system of care. Please contact [facility] ID at phone: [phone]; fa x: [phone] with any questions or concerns regarding this [...] sh e is fine w/ coming to [place] twice in a week as there were unsuccessful attempts at setti ng up joint appt. Care Coordination issues needing clarification: none when asked. elephone Encounter - Layne Huang - 06/18/2018 4:10 [address] PDTDr. Rinkuwilliam only sees pts at [facility] on '. Could a provide r see the pt as a joint on , 07/23? elephone Encounter - Jaye Winchester RN - 06/17/2018 1:05 PM PDTFormatting o f this note might be different from the original. 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 During t hat time,we will cooridnate so that he may follow up with ID/OPAT in regards to his treatmen t. He will be discharged to [facility] to receive inpatient therapy and OPAT. Recommendations: 1. Change Cefazolin 2g IV q8 hours, with renal adjustments as required 2. Tentative duration of Cefazolin will be 6 weeks from the time of surgery (SOT: 06/12 - [place] T: 07/24) 3. Discussed with patient that OPAT can cont. at [facility]. If patient is discharged fr [...]
--- OUTSIDE RECORDS SUMMARY | ~2020-07-26 | XMS | Encounter Summary ---
Demographics + + + | Address | [address] | | | [place] [address] | + + + | Home Phone | | + + + | Preferred Language | Unknown | + + + | Marital Status | | + + + | Mormon Affiliation | 1077 | + + + | Race | White | + + + | Ethnic Group | Not or | + + + Author + + + | Author | [facility] | | | and [place] | + + + | Organization | [facility] | | | and [...] Team Providers + +------+ + | Care Rolling Chair Pusher Name | Role | Phone | + [...] + + | 07/29/ | Telephone | [facility] EP | Britni Alcazar RN | Follow-up (Call to | | 2018 | | [facility] [place] | | schedule follow up | | | | [address] | | appt. ) | | | | [place] | | | | | | [address] | | | | | | [phone] | | | +--------+ + + + [...]
--- OUTSIDE RECORDS SUMMARY | ~2020-07-26 | XMS | Encounter Summary ---
Demographics + + + | Address | [address] | | | [place] [address] | + + + | Home Phone [...] Team Providers + +------+ + | Care Mail Handler Name | Role | Phone | + [...] | | | | | [place], | | | | | | [place] [address] | | | +--------+--------+ + + + [...]
--- OUTSIDE RECORDS SUMMARY | ~2020-07-26 | XMS | Encounter Summary ---
Demographics + + + | Address | [address] | | | [place] [address] | + + + | Home Phone [...] Team Providers + +------+ + | Care Office Professional Name | Role | Phone | + +------+ + | Erin Forrester MD | PCP | | + +------+ + Encounter Details +--------+ + + + + | Date | Type | Department | Care Team | Description | +--------+ + + + + | 01/12/ | Orders Only | [facility] | Conversion | | | 2017 | | NEPHROLOGY [place] | Transaction, | | | | | [address] | Provider Unknown | | | | | [address] | [phone] | | | | | [address] | | | | | | [phone] | | | +--------+ + + + [...] - 1.030 | EXTERNAL | | | [place], | | | LAB | | | [...]
--- OUTSIDE RECORDS SUMMARY | ~2020-07-26 | XMS | Clinical Summary ---
Demographics + + + | Address | [address] | | | [place] [address] | + + + | Home Phone [...] Team Providers + +------+ + | Care Uniform Cap Operator Name | Role | Phone | + +------+ + | Gilberto Estrada MD | PCP | | + +------+ + Source Comments [facility] is fully live on both [facility] Ambulatory and [facility] InPatient.[facility] Allergies + + + + + + | Active Allergy | Reactions | Severity | Noted | Comments | | | | | Date | | + + + + + + | Nsaids | Renal Failure | High | 06/14/20 | Avoid per | | (Non-Steroidal | | | 18 | Product Safety Manager | | Anti-Inflammatory | | | | [...] 0 | | | Activ | | [id number] | mouth once daily. 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 | [...] Right: | MARIALUISA | | 11/26/ | [id number] | | 13mm Implanted: Qty: 1 on | | Knee | | | 2019 | -513 / | | 06/12/2018 by Sandoval Hyde | | | | | | | | MD Leanne at [facility] REV | | | | | [...] + +--------+ | MEDICARE | MEDICA | [id number] | 01/26/20 | [phone] | [address] | Medica | | | RE A & | | 15-Pre | 1 | [address] | re | | | B | | sent | | [place] | | | | | | | | [phone] | | + +--------+ +--------+ + +--------+ | COMMERCIAL GROUP | COMMER | [id number] | 10/27/19 | | | Indemn | [...] Person | Self | [birth year] | [address] | | | al/Fam | | 1940 | [phone] | [place] [address] | | | afshan | | | [...]
--- OUTSIDE RECORDS SUMMARY | ~2020-07-26 | XMS | Encounter Summary ---
Demographics + + + | Address | [address] | | | [place] [address] | + + + | Home Phone [...] Team Providers + +------+ + | Care Bereavement Counselor Name | Role | Phone | [...] [facility] | | | | | | [facility] | | | | | | and Healing, | | | | | | Building 1, 5th | | | | | | Floor [place], [place] | | | | | | [address] | | | | | | [phone] | | | +--------+ + + + [...] [facility] | [address] | [place] [address] | | | DERMATOPATHOLOGY | [address] | | | + + + + + | [facility] | Mary [address] | [place] [address] | | | DERMATOPATHOLOGY | [address] | | | + + + + + documented in this encounter Visit Diagnoses Not on filedocumented in this encounter"
--- OUTSIDE RECORDS SUMMARY | ~2020-07-26 | XMS | Encounter Summary ---
Demographics + + + | Address | [address] | | | [place] [address] | + + + | Home Phone [...] Team Providers + +------+ + | Care Tannery Gummer Name | Role | Phone | + [...] | | | | Loop Physician[facility] | [place], [place] | | | | | [place], 3rd floor | [address] | | | | | [place], [place] | [phone] | | | | | [address] | | | | | | [phone] | | | +--------+ + + + [...]
--- OUTSIDE RECORDS SUMMARY | ~2020-07-26 | XMS | Encounter Summary ---
Demographics + + + | Address | [address] | | | [place] [address] | + + + | Home Phone [...] Team Providers + +------+ + | Care Try On Baster Name | Role | Phone | + +------+ + PCP | Unavailable | + +------+ + Encounter Details +--------+ + + + + | Date | Type | Department | Care Team | Description | +--------+ + + + + | 10/25/ | Emergency | [facility] | Syed Winchester | Fever, unspecified | | 2016 | | MEDICAL CENTER | DO [address] | fever cause; | | | | EMERGENCY CENTER | [address] | Leukocytosis, | | | | [address] | [place] | unspecified type | | | | [facility] [place] | [address] | | | | | [address] | [phone] | | | | | [phone] | | | +--------+ + + + [...] 0313 Date of Service: 10/25/162035 Status: Signed Fountain Dispenser: Syed Winchester DO (Physician) [facility] Department of Emergency Medicine 8:37 PM [...] - TOTAL; Surgeon: Drew Hurst MD; Location: [facility] MAIN OR; Serv e: Orthopedics; [...] (two) times daily as needed. Historical Provider [place]-3 Fatty Acids (FISH OIL) 1200 MG CAPS [...] 10:40 PM Discuss[address] case with Dr. Ha, Firing Pin Gauger, who requests that the patient be st [...] Date/Time Urinalysis (reflex to microscopic/reflex to culture) [[id number]] (Abnormal) Collected: 10/25/162218 Order Status: Completed Specimen Information: Urine, Clean Catch Updated: 10/25/16 22 34 COLOR UA YELLOW CLARITY CLEAR Specific [place], UA 1.020 1.002 - 1.030 LEUKOCYTE ESTERASE NEGATIVE NEGATIVE NITRITE NEGATIVE NEGATIVE UROBILINOGEN NORMAL <1.1 mg/dL PROTEIN NEGATIVE NEGATIVE mg/dL PH,URINE 5.0 5.0 - 8.0 BLOOD NEGATIVE NEGATIVE KETONES NEGATIVE NEGATIVE mg/dL BILIRUBIN NEGATIVE NEGATIVE GLUCOSE 50 (A) NEGATIVE mg/dL Influenza Antigen [[id number]] Collected: 10/25/162104 Order Status: Completed Specimen Information: Nasopharyngeal from Nasopharyngeal Cultur e Updated: 10/25/162141 INFLUENZA A NEGATIVE NEGATIVE INFLUENZA B NEGATIVE NEGATIVE Complete Metabolic Panel [[id number]] (Abnormal) Collected: 10/25/162102 Order Status: Completed Specimen [...] (L) >60 mL/min/1.73m2 CBC w Auto Diff [[id number]] (Abnormal) Collected: 10/25/162102 Order Status: Completed Specimen [...] fol low up and evaluation [address] [facility] [address] Tita Christopher MD Call in 1 week As needed for further follow up and evaluation [address] [facility] [address] [place] [id number] [facility] Emergency Department If symptoms worsen [address] [facility] [address] Discharge Medications: Discharge Medication List as of [...] Rad Conversion - 06/10/2019 6:48 PM TOMMIE [id number] yearsXR CHEST | | 2 VIEW FRONTAL AND [id number]/25/2016 10:32 PM INDICATION: Fever. TECHNIQUE: 2 views [...] EXTERNAL | | | | performed at [facility];888 | | LAB | | | | [address];[place] | | | | | | [address] | | | | + + + + + + | Clarity, | CLEARComment: Testing | | EXTERNAL | | | Urine | performed at [facility];[address] | | LAB | | | | [address];[place] | | | | | | [address] | | | | + + + + + + | Specific | 1.020Comment: Testing | 1.002 - 1.030 | EXTERNAL | | | [place], | performed at [facility];[address] | | LAB | | | Urine | [address];[place] | | | | | | [address] | | | | + + + + + + | Leukocyte | NEGATIVEComment: Testing | | EXTERNAL | | | Esterase, | performed at [facility];[address] | | LAB | | | Urine | [address];[place] | | | | | | [address] | | | | + + + + + + | Nitrite, | NEGATIVEComment: Testing | | EXTERNAL | | | Urine | performed at [facility];[address] | | LAB | | | | [address];[place] | | | | | | [address] | | | | + + + + + + | Urobilinoge | NORMALComment: Testing | mg/dL | EXTERNAL | | | n, Urine | performed at [facility];[address] | | LAB | | | | [address];[place] | | | | | | [address] | | | | + + + + + + | Protein, | NEGATIVEComment: Testing | mg/dL | EXTERNAL | | | Urine | performed at [facility];[address] | | LAB | | | | [address];[place] | | | | | | [address] | | | | + + + + + + | pH, Urine | 5.0Comment: Testing | 5.0 - 8.0 | EXTERNAL | | | | performed at [facility];[address] | | LAB | | | | [address];[place] | | | | | | [address] | | | | + + + + + + | Blood, | NEGATIVEComment: Testing | | EXTERNAL | | | Urine | performed at [facility];[address] | | LAB | | | | [address];[place] | | | | | | [address] | | | | + + + + + + | Ketones | NEGATIVEComment: Testing | mg/dL | EXTERNAL | | | | performed at [facility];[address] | | LAB | | | | [address];[place] | | | | | | [address] | | | | + + + + + + | Bilirubin, | NEGATIVEComment: Testing | | EXTERNAL | | | Urine | performed at [facility];[address] | | LAB | | | | [address];[place] | | | | | | [address] | | | | + + + + + + | Glucose, | 50 (A)Comment: Testing | mg/dL | EXTERNAL | | | Urine | performed at [facility];[address] | | LAB | | | | [address];[place] | | | | | | [address] | | | | + + + [...] | performed by ICA Testing performed at [facility];[address] [facility];[place], [place] | | | [address] INFLUENZA B NEGATIVE | | | Testing performed by ICA Testing performed at [facility] | | | [facility];[place] [address] | | + + + + +---------+ [...] | | | | | [address];[place] [address] | | | | + + + + + + | Non- | 5.15Comment: Testing | 4.20 - 5.70 | EXTERNAL | | | Red Blood | performed at [facility];888 | M/uL | LAB | | | Cells | [address];[place] | | | | | Counted | [address] | | | | + + + + + + | Hemoglobin | 15.7Comment: Testing | 13.2 - 17.0 | EXTERNAL | | | | performed at [facility];888 | g/dL | LAB | | | | [address];[place] | | | | | | [address] | | | | + + + + + + | Hematocrit, | 46.2Comment: Testing | 39.0 - 50.0 % | EXTERNAL | | | POC | performed at [facility];[address] | | LAB | | | | [address];[place] | | | | | | [address] | | | | + + + + + + | MCV | 89.6Comment: Testing | 80.0 - 100.0 fl | EXTERNAL | | | | performed at [facility];[address] | | LAB | | | | [address];[place] | | | | | | [address] | | | | + + + + + + | MCH | 30.4Comment: Testing | 27.0 - 34.0 pg | EXTERNAL | | | | performed at [facility];[address] | | LAB | | | | [address];[place] | | | | | | [address] | | | | + + + + + + | MCHC | 33.9Comment: Testing | 32.0 - 35.5 | EXTERNAL | | | | performed at [facility];888 | g/dL | LAB | | | | [address];[place] | | | | | | [address] | | | | + + + + + + | RDW-CV | 48.1Comment: Testing | 37 - 53 fl | EXTERNAL | | | | performed at [facility];[address] | | LAB | | | | [address];[place] | | | | | | [address] | | | | + + + + + + | Platelet | 99 (L)Comment: Testing | 150 - 400 K/uL | EXTERNAL | | | Count | performed at [facility];[address] | | LAB | | | Plasma | [address];[place] | | | | | | [address] | | | | + + + + + + | MPV | 8.7Comment: Testing | fl | EXTERNAL | | | | performed at [facility];[address] | | LAB | | | | [address];[place] | | | | | | [address] | | | | + + + + + + | Differentia | AUTOMATEDComment: | | EXTERNAL | | | l Type | Testing performed at | | LAB | | | | [facility];[address];[place] [address] | | | | + + + + + + | % Segmented | 83.01Comment: Testing | % | EXTERNAL | | | | performed at [facility];[address] | | LAB | | | Neutrophils | [address];[place] | | | | | | [address] | | | | + + + + + + | % | 8.29Comment: Testing | % | EXTERNAL | | | Lymphocytes | performed at [facility];[address] | | LAB | | | | [address];[place] | | | | | | [address] | | | | + + + + + + | % Monocytes | 7.46Comment: Testing | % | EXTERNAL | | | | performed at [facility];[address] | | LAB | | | | [address];[place] | | | | | | [address] | | | | + + + + + + | % | 0.85Comment: Testing | % | EXTERNAL | | | Eosinophils | performed at [facility];[address] | | LAB | | | | [address];[place] | | | | | | [address] | | | | + + + + + + | % Basophils | 0.39Comment: Testing | % | EXTERNAL | | | | performed at [facility];[address] | | LAB | | | | [address];[place] | | | | | | [address] | | | | + + + + + + | Absolute | 10.02 (H)Comment: | 1.90 - 7.40 | EXTERNAL | | | Segmented | Testing performed at | K/uL | LAB | | | Neutrophils | [facility];[address] | [address];[place] [address] | | | | + + + + + + | Absolute | 1.00Comment: Testing | 1.00 - 3.90 | EXTERNAL | | | Lymphocytes | performed at [facility];[address] | K/uL | LAB | | | | [address];[place] | | | | | | [address] | | | | + + + + + + | Absolute | 0.90 (H)Comment: Testing | 0.00 - 0.80 | EXTERNAL | | | Monocytes | performed at [facility];[address] | K/uL | LAB | | | | [address];[place] | | | | | | [address] | | | | + + + + + + | Absolute | 0.10Comment: Testing | 0.00 - 0.50 | EXTERNAL | | | Eosinophils | performed at [facility];[address] | K/uL | LAB | | | | [address];[place] | | | | | | [address] | | | | + + + + + + | Absolute | 0.05Comment: Testing | 0.00 - 0.10 | EXTERNAL | | | Basophils | performed at [facility];[address] | K/uL | LAB | | | | [address];[place] | | | | | | [address] | | | | + + + [...] EXTERNAL | | | | performed at [facility];[address] | mmol/L | LAB | | | | [address];[place] | | | | | | [address] | | | | + + + + + + | K | 3.6Comment: Testing | 3.5 - 4.9 | EXTERNAL | | | | performed at [facility];888 | mmol/L | LAB | | | | [address];[place] | | | | | | [address] | | | | + + + + + + | Cl | 95 (L)Comment: Testing | 99 - 109 mmol/L | EXTERNAL | | | | performed at [facility];[address] | | LAB | | | | [address];[place] | | | | | | [address] | | | | + + + + + + | CO2 | 29Comment: Testing | 23 - 32 mmol/L | EXTERNAL | | | | performed at [facility];[address] | | LAB | | | | [address];[place] | | | | | | [address] | | | | + + + + + + | Anion Gap | 17Comment: Testing | 5 - 20 mmol/L | EXTERNAL | | | | performed at [facility];[address] | | LAB | | | | [address];[place] | | | | | | [address] | | | | + + + + + + | Glucose, | 117 (H)Comment: Testing | 65 - 99 mg/dL | EXTERNAL | | | Fasting | performed at [facility];[address] | | LAB | | | | [address];[place] | | | | | | [address] | | | | + + + + + + | BUN | 25Comment: Testing | 8 - 25 mg/dL | EXTERNAL | | | | performed at [facility];[address] | | LAB | | | | [address];[place] | | | | | | [address] | | | | + + + + + + | Creatinine | 1.6 (H)Comment: Testing | 0.70 - 1.30 | EXTERNAL | | | | performed at [facility];888 | mg/dL | LAB | | | | [address];[place] | | | | | | [address] | | | | + + + + + + | BUN/Creatin | 16Comment: Testing | | EXTERNAL | | | ine Ratio | performed at [facility];[address] | | LAB | | | | [address];[place] | | | | | | [address] | | | | + + + + + + | Calcium | 8.4 (L)Comment: Testing | 8.5 - 10.5 | EXTERNAL | | | | performed at [facility];888 | mg/dL | LAB | | | | [address];[place] | | | | | | [address] | | | | + + + + + + | Protein, | 7.7Comment: Testing | 6.3 - 8.2 g/dL | EXTERNAL | | | Total | performed at [facility];[address] | | LAB | | | | [address];[place] | | | | | | [address] | | | | + + + + + + | Albumin | 3.5Comment: Testing | 3.3 - 4.8 g/dL | EXTERNAL | | | | performed at [facility];[address] | | LAB | | | | [address];[place] | | | | | | [address] | | | | + + + + + + | Globulin | 4.2Comment: Testing | 1.3 - 4.9 g/dL | EXTERNAL | | | | performed at [facility];[address] | | LAB | | | | [address];[place] | | | | | | [address] | | | | + + + + + + | A/G Ratio | 0.8 (L)Comment: Testing | 1.0 - 2.4 | EXTERNAL | | | | performed at [facility];[address] | | LAB | | | | [address];[place] | | | | | | [address] | | | | + + + + + + | Bilirubin | 1.4Comment: Testing | 0.1 - 1.5 mg/dL | EXTERNAL | | | Total | performed at [facility];[address] | | LAB | | | | [address];[place] | | | | | | [address] | | | | + + + + + + | ALP, | 52Comment: Testing | 35 - 115 U/L | EXTERNAL | | | External | performed at [facility];[address] | | LAB | | | | [address];[place] | | | | | | [address] | | | | + + + + + + | AST | 24Comment: Testing | 10 - 45 U/L | EXTERNAL | | | | performed at [facility];[address] | | LAB | | | | [address];[place] | | | | | | [address] | | | | + + + + + + | ALT | 23Comment: Testing | 10 - 65 U/L | EXTERNAL | | | | performed at [facility];[address] | | LAB | | | | [address];[place] | | | | | | [address] | | | | + + + [...] | | | | | | at [facility];[address];[place] [address] | | | | + + + [...]
--- OUTSIDE RECORDS SUMMARY | ~2020-07-26 | XMS | Encounter Summary ---
Demographics + + + | Address | [address] | | | [place] [address] | + + + | Home Phone [...] Team Providers + +------+ + | Care Hose Suspender Cutter Name | Role | Phone | [...] pain, | | 2018 | Visit | [facility] [address] | MD [address] | unspecified | | | | [place] [address] | [place], [place] | chronicity (Primary | | | | [address] | [id number] | Dx) | | | | [place], [place] | [phone] | | | | | [address] | | | | | | [phone] | | | +--------+---------+ + + + [...] might be different fr om the original. [facility] Today's date: [...] as listed. GHASSAN SHERMAN MD ORTHOPAEDICS AT [address] [place] [id number] Orders Placed This Encounter X-RAY KNEE 2 [...]
--- OUTSIDE RECORDS SUMMARY | ~2020-07-26 | XMS | Encounter Summary ---
Demographics + + + | Address | [address] | | | [place] [address] | + + + | Home Phone [...] Team Providers + +------+ + | Care Tube Rebuilder Name | Role | Phone | + [...] + + | 07/31/ | Surgery | [facility] | Willow Colin MD | EGD with Dilation | | 2017 | | MED CTR MP INTRA OP | [address] | | | | | [address] | [address], | | | | | [place], [place] | [place] [address] | | | | | [address] | [phone] | | | | | [phone] | | | +--------+---------+ + + + [...] fluids. 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 hide house supervisor omeprazole at [place], [place]. documented in this encounter Medications at [...] Electronically signed Willow Colin MD 07/31/2017 14:06 [facility] 2:1 1 PM PDTOp Note - [...] ST. | [address] | [place], [place] | [phone] | | [facility] | | [address] | | | - LABORATORY | | [...] Negative for Helicobacter pylori with HE stain. [facility]:caw:[id number] GROSS | | | DESCRIPTION: [...] technical and professional components were performed by [employer] | | | [employer], [address] [place] [address] | | | (Manager Office Services: Don Morrell D.O.; IA#: [id number]). | | | Diagnostician: Gavin Michaud MD [...]
--- OUTSIDE RECORDS SUMMARY | ~2020-07-26 | XMS | Encounter Summary ---
Demographics + + + | Address | [address] | | | [place] [address] | + + + | Home Phone [...] Team Providers + +------+ + | Care Health Outreach Worker Name | Role | Phone | [...] | | | [address] | [facility] [address] | orders) | | | | Loop Physician's | [place], [place] | | | | | [place], [facility] [[email or web address]] floor | [address] | | | | | [place], [place] | [phone] | | | | | [address] | | | | | | [phone] | | | +--------+ + + + [...]
--- OUTSIDE RECORDS SUMMARY | ~2020-07-26 | XMS | Clinical Summary ---
Demographics + + + | Address | [address] | | | [place] [address] | + + + | Home Phone [...] + + + | Author | [facility] | | | and [place] | + + + | Organization | [facility] | | | [...] Team Providers + +------+ + | Care Computer Systems Engineer Name | Role | Phone [...] + + +---------+------+------+-------+ | nystatin | nystatin [id number] | | 0 | | 09/2 | [...] eted) | + + + +---------+------+------+-------+ | [place]-3 Fatty | [place] 3 | | 0 | | 09/2 [...] eted) | + + + +---------+------+------+-------+ | [place]-3 Fatty | Take by mouth two | [...] | | + + + +---------+------+------+-------+ | [place]-3 Fatty | Take 1,200 mg by | [...] + + + | 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 Pulse generator: [employer]. Model number A2DR01, | | serial number [id number]. Placed because of symptomatic sinus | | [...] block.2. RV | | lead: Medtronic, model #405042, serial number [id number]. RA | | lead: Medtronic, model #706204, serial number [id number]. This | | is an Medtronic MRI [...] is planning to | | go to [place] after . 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); | | | | | [...] | | | | | | tachycardia) ([facility]); | | | | | | Nonsustained | | | | | | ventricular | | | | | | tachycardia ([facility]); | | | | | [...] cardiomyopathy | | | | | | ([facility]); Chronic | | | | | | systolic heart | | | | | | failure ([facility]); SSS | | | | | | (sick sinus | | | | | | syndrome) ([facility]); | | | | | [...] | | 2017 | -500 | | [id number]: Qty: 1 on | | | | | | /[id number] | | 09/07/2013 by Aris, | | | | | | 500 | | Drew Mendoza MD | | | | | | /[id number] | + +------+------+ +--------+--------+--------+ | Patella Triathlon 38mm 11mm | | | | | 04/25/ | 5551-G | | Height - [id number]: | | | | | 2017 | [...] | | 2017 | -402 | | [id number]: Qty: 1 on | | | | [...] - | | | | | | /[id number] | | [id number]: Qty: 1 on | | | | | | 001 | | 09/07/2013 by Aris, | | | | | | /[id number] | | Drew Mendoza MD | | | | | | 1 | + +------+------+ +--------+--------+--------+ | Insert Tibial Triathlon Cs Sz | | | | | 01/23/ | 5531-G | | 5 13mm - [id number]: | | | | | 2018 | [...] | | POC | performed at [facility];[address] | | LABORATORY | | | | [address];[place], [place] | | | | | | [address] | | | | + + + + + + + + | Specimen | + + | | + + + + + + + | Performing | Address | City/State/Zipcode | Phone Number | | Organization | | | | + + + + + | [facility] | [address] | [place] [address] | [phone] | + + + + + Protime [...] | | | | performed at [facility] | | | | | | [address];[place], [place] | | | | | | [address] | | | | + + + + + + + + | Specimen | + + | Blood | + + + + + + + | Performing | Address | City/State/Zipcode | Phone Number | | Organization | | | | + + + + + | [facility] | [address] | [place] [address] | [phone] | + + + + + CBC [...] RBC | NORMAL RBC MORPHComment: | | [facility] | | | Morphology | Testing performed at | | LABORATORY | | | | [facility], [address] | | | | | | [place] | | | | | | [address] | | | | + + + + + + + + | Specimen | + + | Blood | + + + + + + + | Performing | Address | City/State/Zipcode | Phone Number | | Organization | | | | + + + + + | [facility] | [address] | [place] [address] | [phone] | + + + + + Comprehensive [...] [address], | | | | | | [place] [address] | | | | + + + + + + + + | Specimen | + + | Blood | + + + + + + + | Performing | Address | City/State/Zipcode | Phone Number | | Organization | | | | + + + + + | [facility] | [address] | [place] [address] | [phone] | + + + + + Basic [...] 49 (L)Comment: GFR <60: | >60 | [facility] | | | GFR | [...] | | | | | performed at [facility], [address] | | | | | | [facility], | | | | | | [place] [address] | | | | + + + + + + + + | Specimen | + + | Blood | + + + + + + + | Performing | Address | City/State/Zipcode | Phone Number | | Organization | | | | + + + + + | [facility] | [address] | [place] [address] | [phone] | + + + + + Magnesium [...] KR | | | | performed at [facility] | | LABORATORY | | | | [address];[place] | | | | | | [address] | | | | + + + + + + + + | Specimen | + + | Blood | + + + + + + + | Performing | Address | City/State/Zipcode | Phone Number | | Organization | | | | + + + + + | [facility] | [address] | [place] [address] | [phone] | + + + + + CK [...] Testing | 55 - 400 U/L | [facility] | | | | performed at [facility];[address] | | LABORATORY | | | | [address];[place], [place] | | | | | | [address] | | | | + + + + + + + + | Specimen | + + | Blood | + + + + + + + | Performing | Address | City/State/Zipcode | Phone Number | | Organization | | | | + + + + + | [facility] | [address] | [place] [address] | [phone] | + + + + + [place] [...] | | | Calculated | performed at [facility], [address] | | LABORATORY | | | | [address], | | | | | | [place] [address] | | | | + + + + + + + + | Specimen | + + | Blood | + + + + + + + | Performing | Address | City/State/Zipcode | Phone Number | | Organization | | | | + + + + + | [facility] | [address] | [place] [address] | [phone] | + + + + + TSH, Reflex Free T4 (07/20/2020 5:53 AM PDT) + + + + + + | Component | Value | Ref Range | Performed | Pathologist | | | | | At | Signature | + + + + + + | TSH | 0.372 (L) | 0.450 - 5.100 | [facility] | | | | | uIU/mL | LABORATORY | | + + + + + + + + | Specimen | + + | Blood | + + + + + + + | Performing | Address | City/State/Zipcode | Phone Number | | Organization | | | | + + + + + | [facility] | [address] | [place] [address] | [phone] | + + + + + T4, Free (07/20/2020 5:53 AM PDT) + + + + + + | Component | Value | Ref Range | Performed | Pathologist | | | | | At | Signature | + + + + + + | FT4 | 1.3Comment: Testing | 0.7 - 1.5 ng/dL | KR | | | | performed at [facility] | | LABORATORY | | | | [facility];[place], [place] | | | | | | [address] | | | | + + + + + + + + | Specimen | + + | | + + + + + + + | Performing | Address | City/State/Zipcode | Phone Number | | Organization | | | | + + + + + | [facility] | [address] | [place] [address] | [phone] | + + + + + ECG [...] [address] | | | | | [address];[place] [address] | | | | + + + + + + + + | Specimen | + + | | + + + + + + + | Performing | Address | City/State/Zipcode | Phone Number | | Organization | | | | + + + + + | [facility] | [address] | [place] [address] | [phone] | + + + + + Procalcitonin [...] | 1.38 (H)Comment: | <0.5 ng/mL | [facility] | | | IN | INTERPRETIVE | [...] | | | | | at [facility];[address] [place] [address] | | | | | | [facility];[place] [address] | | | | + + + + + + + + | Specimen | + + | Blood | + + + + + + + | Performing | Address | City/State/Zipcode | Phone Number | | Organization | | | | + + + + + | [facility] | [address] | [place] [address] | [phone] | + + + + + Phosphorus [...] JAZMIN | | | | performed at [facility];[address] | | LABORATORY | | | | [address];[place] | | | | | | [address] | | | | + + + + + + + + | Specimen | + + | Blood | + + + + + + + | Performing | Address | City/State/Zipcode | Phone Number | | Organization | | | | + + + + + | [facility] | [address] | [place] [address] | [phone] | + + + + + Troponin [...] | | | | CALLED TO 10RP WELDER MACHINE OPERATOR | | | | | | GITA [place] AT 0524 BY | | | | | | MWREAD BACK RESULTS | | | | | | VERIFIEDTesting | | | | | | performed at [facility];[address] | | | | | | [address];[place], [place] | | | | | | [address] | | | | + + + + + + + + | Specimen | + + | Blood | + + + + + + + | Performing | Address | City/State/Zipcode | Phone Number | | Organization | | | | + + + + + | [facility] | [address] | [place] [address] | [phone] | + + + + + CK-MB [...] [address] | | | | | | [address];[place] [address] | | | | + + + + + + + + | Specimen | + + | | + + + + + + + | Performing | Address | City/State/Zipcode | Phone Number | | Organization | | | | + + + + + | [facility] | [address] | [place] [address] | [phone] | + + + + + POC [...] | | | | performed at [facility];[address] | | | | | | [address];[place], [place] | | | | | | [address] | | | | + + + + + + + + | Specimen | + + | | + + + + + + + | Performing | Address | City/State/Zipcode | Phone Number | | Organization | | | | + + + + + | [facility] | [address] | [place] [address] | [phone] | + + + + + RAPID STREP SWAB COLLECTION (07/18/2020 8:06 PM PDT) + + + + + + | Component | Value | Ref Range | Performed | Pathologist | | | | | At | Signature | + + + + + + | Collection | THROATComment: Testing | | [facility] | | | | performed at [facility];[address] | | LABORATORY | | | | [address];[place] | | | | | | [address] | | | | + + + + + + + + | Specimen | + + | | + + + + + + + | Performing | Address | City/State/Zipcode | Phone Number | | Organization | | | | + + + + + | [facility] | [address] | [place] [address] | [phone] | + + + + + XR [...] Procedure Note | + + | Rocky, [id number] - 07/18/2020 7:35 PM PDT | | [...] Procedure Note | + + | Rocky, [id number] - 07/18/2020 7:37 PM PDT | | [...] | | | | performed at [facility];[address] | | | | | | [address];[place], [place] | | | | | | [address] | | | | + + + + + + + + | Specimen | + + | Blood | + + + + + + + | Performing | Address | City/State/Zipcode | Phone Number | | Organization | | | | + + + + + | [facility] | [address] | [place] [address] | [phone] | + + + + + Culture, Blood (07/18/2020 6:43 PM PDT)Only the most recent of 2 results within the time loren blanchard is included. + + + + + + | Component | Value | Ref Range | Performed | Pathologist | | | | | At | Signature | + + + + + + | Special | LP[facility]ale[facility] | | [facility] | | | Requests | | | LABORATORY | | + + + + + + | Special | Testing performed at | | [facility] | | | Requests | [facility];[address] [facility] | | LABORATORY | | | | [address];[place] [address] | | | | + + + + + + | Culture | NO GROWTH 6 DAYS | | [facility] | | | | | | LABORATORY | | + + + + + + | Culture | Testing performed at | | [facility] | | | | TCL, [address] [facility] | | LABORATORY | | | | [place], [place] | | | | | | [id number]: Testing | | | | | | performed at [facility], [facility] | | | | | | [address], [place] | | | | | | [address] | | | | + + + + + + + + | Specimen | + + | Blood - Peripheral | | blood specimen | | (specimen) | + + + + + + + | Performing | Address | City/State/Zipcode | Phone Number | | Organization | | | | + + + + + | [facility] | [address] | [place] [address] | [phone] | + + + + + PTT (07/18/2020 5:37 PM PDT) + + + + + + | Component | Value | Ref Range | Performed | Pathologist | | | | | At | Signature | + + + + + + | PTT | 54 (H)Comment: Testing | 23 - 32 seconds | [facility] | | | | performed at [facility];[address] | | LABORATORY | | | | [address];[place] | | | | | | [address] | | | | + + + + + + + + | Specimen | + + | | + + + + + + + | Performing | Address | City/State/Zipcode | Phone Number | | Organization | | | | + + + + + | [facility] | [address] | [place] [address] | [phone] | + + + + + B [...] [address] | | | | | | [address];[place] [address] | | | | + + + + + + + + | Specimen | + + | Blood | + + + + + + + | Performing | Address | City/State/Zipcode | Phone Number | | Organization | | | | + + + + + | [facility] | [address] | [place] [address] | [phone] | + + + + + Coronavirus (COVID-19) NAAT (07/18/2020 5:10 PM PDT) + + + + + + | Component | Value | Ref Range | Performed | Pathologist | | | | | At | Signature | + + + + + + | SARS-CoV-2, | POSITIVE (A)Comment: | NEG | [facility] | | | NAAT | This test was developed | | LABORATORY | | | (COVID-19) | and its performance | | | | | | characteristics | | | | | [facility] It | | | | | | [...] | | | | performed at [facility];[address] | | | | | | [facility];[place], [place] | | | | | | [address] | | | | + + + + + + + + | Specimen | + + | Tissue - Entire | | nasopharynx (body | | structure) | + + + + + + + | Performing | Address | City/State/Zipcode | Phone Number | | Organization | | | | + + + + + | [facility] | [address] | [place] [address] | [phone] | + + + + + Urinalysis [...] - 1.030 | [facility] | | | [place], | | | LABORATORY | | | [...] | | | | | Urine | Blvd;[place] [address] | | | | + + + [...] | + + + + + | [facility] | [address] | [place] [address] | [phone] | + + + + + [place] [...] +--------+ +---------+--------+ | CIGNA | CIGNA | [id number] | 10/27/19 | [phone] | | Indemn [...] +--------+ +---------+--------+ | MEDICARE | MEDICA | [id number] | 01/26/20 | [phone] | | Medica | | | RE | | 15-Pre | 5 | | re | | | PART A | | sent | | | | | | AND B | | | | | | + +--------+ +--------+ +---------+--------+ | MEDICARE | MEDICA | [id number] | 04/26/20 | [phone] | | Medica | | | RE | | 03-Pre | 5 | | re | | | PART A | | sent | | | | | | AND B | | | | | | + +--------+ +--------+ +---------+--------+ | CIGNA | CIGNA | [id number] | 10/27/19 | [phone] | | Indemn [...] Person | Self | [birth year] | | [address] | | | al/Fam | | 1940 | [phone] | [place] [address] | | | afshan | | | 4 (Home) | | + +--------+ +--------+ + + | Duane Mas | Person | Self | [birth year] | | [address] | | | al/Fam | | 1940 | [phone] | [place] [address] | | | afshan | | | 4 (Home) | | + +--------+ +--------+ + + Advance Directives + + + + + | Type | Date Recorded | Patient | Explanation | | | | Manager Biologics | | + + + + + | Power of | | | | | Order To Delivery Supervisor | | | | + + + [...]
--- OUTSIDE RECORDS SUMMARY | ~2020-07-26 | XMS | Encounter Summary ---
Demographics + + + | Address | [address] | | | [place] [address] | + + + | Home Phone [...] Team Providers + +------+ + | Care Regional Clinical Research Associate Name | Role | Phone | [...] | | | | | | | [place] | | | | | | | ESOPHAGOGAST | | | | | | | RODUODENOSCO | | | | | | | PY TRANSORAL | | | | | | | DIAGNOSTIC | | | | | | | [place] EGD | | | | | | | TRANSORAL | | | | | | | BIOPSY | | | | | | | SINGLE/MULTI | | | | | | | PLE [place] EGD | | | | | | | BALLOON | | | | | | | DILATION | | | | | | | ESOPHAGUS | | | | | | | <30 MM DIAM | | | | | | | [place] | | | | | | | [...] + + + + | 02/08/ | [facility] | [facility] | Willow Colin MD | | | 2019 | Encounter | MED CTR OR PRE OP | [address] | | | | | [address] | [address], | | | | | [place] [address] | [place] [address] | | | | | [phone] | [phone] | | | | | | | [...] TREVINO. | [address] | [place] | [phone] | | [facility] | | [address] | | | - LABORATORY | | [...]
--- OUTSIDE RECORDS SUMMARY | ~2020-07-26 | XMS | Encounter Summary ---
Demographics + + + | Address | [address] | | | [place] [address] | + + + | Home Phone | | + + + | Preferred Language | Unknown | + + + | Marital Status | | + + + | Religion Affiliation | 1077 | + + + [...] Team Providers + +------+ + | Care Motors Assembler Name | Role | Phone | + +------+ + | Erin Forrester MD | PCP | | + +------+ + Encounter Details +--------+ + + + + | Date | Type | Department | Care Team | Description | +--------+ + + + + | 07/18/ | Documentati | [facility] | Bobbi Palacio, | | | 2020 | on | CARDIOLOGY AARON Cheung MD [address] | | | | | [address] | [place] | | | | | [place], [place] | [address] | | | | | [address] | | | | | | [phone] | | | +--------+ + + + [...]
--- OUTSIDE RECORDS SUMMARY | ~2020-07-26 | XMS | Encounter Summary ---
Demographics + + + | Address | [address] | | | [place] [address] | + + + | Home Phone [...] Team Providers + +------+ + | Care Religion Teacher Name | Role | Phone | [...] [address] | | | | | [address] | [address] | | | | | Loop Physician's | [place], [place] | | | | | [place], [facility] floor | [address] | | | | | [place], [place] | [phone] | | | | | [address] | | | | | | [phone] | | | +--------+ + + + [...]
--- OUTSIDE RECORDS SUMMARY | ~2020-07-26 | XMS | Encounter Summary ---
Demographics + + + | Address | [address] | | | [place] [address] | + + + | Home Phone [...] Providers + +------+ + | Care Commercial Finance Manager Name | Role | Phone | [...] [address]MIN[address] Jerome | | | | | [address] | [address] | | | | | Loop Physician's | [place], [place] | | | | | [place], [facility] floor | [address] | | | | | [place], [place] | [phone] | | | | | [address] | | | | | | [phone] | | | +--------+ + + + [...]
--- OUTSIDE RECORDS SUMMARY | ~2020-07-26 | XMS | Encounter Summary ---
Demographics + + + | Address | [address] | | | [place] [address] | + + + | Home Phone [...] Team Providers + +------+ + | Care Reagent Tender Name | Role | Phone | [...] + + | 09/29/ | Telephone | [facility] | Kristie De Los Santos ANP | Patient Concerns | | 2019 | | CARDIOLOGY [place] | [address] | | | | | [address] | [place], [place] | | | | | [place], [place] | [address] | | | | | [address] | | | | | | [phone] | | | +--------+ + + + [...]
--- OUTSIDE RECORDS SUMMARY | ~2020-07-26 | XMS | Encounter Summary ---
Demographics + + + | Address | [address] | | | [place] [address] | + + + | Home Phone [...] Providers + +------+ + | Care Clinical Data Manager Name | Role | Phone | [...] | | | | | [address] [facility] | | | | | | [place] | | | | | | [address] | | | | | | | [...] | DERMATOPATH | | | MNT) | [address] CLINICAL | | OLOGY | | | [...] | + + + + + | [facility] DEPARTMENT | [address] | [address] | | | PATHOLOGY | [address] | | | + + + + + | [facility] | [address] CH[address] | [address] | | | DERMATOPATHOLOGY | [address] | | | + + + + + documented in this encounter Visit Diagnoses Not on filedocumented in this encounter"
--- OUTSIDE RECORDS SUMMARY | ~2020-07-26 | XMS | Encounter Summary ---
Demographics + + + | Address | [address] | | | [place] [address] | + + + | Home Phone [...] Providers + +------+ + | Care Manager Work Name | Role | Phone | + +------+ + | Erin Forrester MD | PCP | | + +------+ + Encounter Details +--------+ + + + + | Date | Type | Department | Care Team | Description | +--------+ + + + + | 06/08/ | Orders Only | [facility] | Conversion | | | 2019 | | NEPRHOLOG[facility] [place] | Transaction, | | | | | [address] | Provider Unknown | | | | | [address] [place] | [phone] | | | | | [address] | | | | | | [phone] | | | +--------+ + + + [...] | | | LAB | | | [place] | | | | | + + [...]
--- OUTSIDE RECORDS SUMMARY | ~2020-07-26 | XMS | Encounter Summary ---
Demographics + + + | Address | [address] | | | [place] [address] | + + + | Home Phone [...] Providers + +------+ + | Care Mortgage Loan Counselor Name | Role | Phone | [...] + + | 02/10/ | Hospital | [facility] | Willow Colin MD | | | 2019 | Encounter | [facility] | [address] | | | | | [address] | [address], | | | | | [place] | [place] [address] | | | | | [address] | [phone] | | | | | [phone] | | | +--------+ + + + [...] You can't be awakened Date Last Reviewed: 08/13/201619992003-6900 [facility]. [address] [place] [address]. All righ ts reserved. This information is [...] you take. This includes prescription medicines, o ryq-pnn-woygivv medicines, herbs, vitamins, and other supplements. Be [...] icine to relax you. The procedure takes [id number]. It does not cause trouble breath ing. [...] Black, tarry, or bloodystools Date Last Reviewed: 04/26/201619997722-9507 [facility]. [address] [place] [address], [place] [address]. All righ ts reserved. This information is [...] prescription medicines Herbs, vitamins, and other supplements Ybxr-sxz-qsyufhx medicines such as aspirin or ibuprofen Street [...] heart or lung disease Date Last Reviewed: 05/27/201719996282-9963 [facility]. [address] [place] [address]. All righ ts reserved. This information is [...] by: Willow Colin MD, 02/10/2019 13:00 [facility] signed by Willow Colin MD at [...] + + + | [address] | [address] [place] [address] | [place] [address] | [phone] | | [facility] | | | [...] + | [address] | [address] | [place] | [phone] | | [facility] | | [address] | | | - LABORATORY | | | | + + + + + Surgical Pathology Exam (02/10/2019 12:00 AM PDT) + + | Specimen | + + | | + + + + + | Narrative | Performed At | + + + | SPECIMEN(S): A GASTRIC BIOPSY SPECIMEN SOURCE: A. GASTRIC | [facility] | | BIOPSY CLINICAL HISTORY: R13.10 [...] technical and professional components were performed by [facility] | | | [place], [address] [place] [address] | | | ([employer]: Don Morrell D.O.; CLIA#: [id number]). | | | Diagnostician: Gely Cerna MD [...]
--- OUTSIDE RECORDS SUMMARY | ~2020-07-26 | XMS | Encounter Summary ---
Demographics + + + | Address | [address] | | | [place] [address] | + + + | Home Phone [...] Team Providers + +------+ + | Care Roof Painter Name | Role | Phone | [...] | | | | | [address] [facility] | | | | | | [place] | | | | | | [address] | | | | | | | [...] | DERMATOPATH | | | MNT) | [address] CLINICAL | | OLOGY | | | [...] | + + + + + | [facility] | [address] | [place] [address] | | | PATHOLOGY | [address] | | | + + + + + | [facility] | [address] | [place] [address] | | | DERMATOPATHOLOGY | [address] | | | + + + + + documented in this encounter Visit Diagnoses Not on filedocumented in this encounter"
--- OUTSIDE RECORDS SUMMARY | ~2020-07-26 | XMS | Encounter Summary ---
Demographics + + + | Address | [address] | | | [place] [address] | + + + | Home Phone [...] Providers + +------+ + | Care Roll Up Operator Name | Role | Phone | + +------+ + PCP | Unavailable | + +------+ + Encounter Details +--------+ + + + + | Date | Type | Department | Care Team | Description | +--------+ + + + + | 10/25/ | Emergency | [facility] | Syed Winchester | Fever, unspecified | | 2016 | | MEDICAL [facility]ENTER | DO Don [address] | fever cause; | | | | EMERGENCY CENTER | [address] | Leukocytosis, | | | | [address] | [place] | unspecified type | | | | [facility] [place] | [address] | | | | | [address] | [phone] | | | | | [phone] | | | +--------+ + + + [...] 0313 Date of Service: 10/25/162035 Status: Signed Conditioning Machine Operator: Syed W[place]ster DO (Physician) [facility] Department of Emergency Medicine 8:37 [...] - TOTAL; Surgeon: Drew Hurst MD; Location: [facility] MAIN OR; Serv e: Orthopedics; [...] (two) times daily as needed. Historical Provider [facility]-3 Fatty Acids (FISH OIL) 1200 MG CAPS [...] 10:40 PM Discuss[address] case with Dr. Ha, Lime Hide Inspector, who requests that the patient be [...] Date/Time Urinalysis (reflex to microscopic/reflex to culture) [[id number]] (Abnormal) Collected: 10/25/162218 Order Status: Completed Specimen Information: Urine, Clean Catch Updated: 10/25/16 22 34 COLOR UA YELLOW CLARITY CLEAR Specific [place], UA 1.020 1.002 - 1.030 LEUKOCYTE ESTERASE NEGATIVE NEGATIVE NITRITE NEGATIVE NEGATIVE UROBILINOGEN NORMAL <1.1 mg/dL PROTEIN NEGATIVE NEGATIVE mg/dL PH,URINE 5.0 5.0 - 8.0 BLOOD NEGATIVE NEGATIVE KETONES NEGATIVE NEGATIVE mg/dL BILIRUBIN NEGATIVE NEGATIVE GLUCOSE 50 (A) NEGATIVE mg/dL Influenza Antigen [[id number]] Collected: 10/25/162104 Order Status: Completed Specimen Information: Nasopharyngeal from Nasopharyngeal Cultur e Updated: 10/25/162141 INFLUENZA A NEGATIVE NEGATIVE INFLUENZA B NEGATIVE NEGATIVE Complete Metabolic Panel [[id number]] (Abnormal) Collected: 10/25/162102 Order Status: Completed Specimen [...] (L) >60 mL/min/1.73m2 CBC w Auto Diff [[id number]] (Abnormal) Collected: 10/25/162102 Order Status: Completed Specimen [...] fol low up and evaluation [address] [facility] [address] Tita Christopher MD Call in 1 week As needed for further follow up and evaluation [address] [facility] [address] [place] [id number] [facility] Emergency Department If symptoms worsen [address] [address] Discharge Medications: Discharge Medication List as of [...] Rad Conversion - 06/10/2019 6:48 PM TOMMIE [id number] yearsXR CHEST | | 2 VIEW FRONTAL AND NZRLVJN5810/25/2016 10:32 PM INDICATION: Fever. TECHNIQUE: 2 views [...] EXTERNAL | | | | performed at [facility];[address] | | LAB | | | | [address];[place] | | | | | | [address] | | | | + + + + + + | Clarity, | CLEARComment: Testing | | EXTERNAL | | | Urine | performed at [facility];[address] | | LAB | | | | [address];[place] | | | | | | [address] | | | | + + + + + + | Specific | 1.020Comment: Testing | 1.002 - 1.030 | EXTERNAL | | | [place], | performed at [facility];[address] | | LAB | | | Urine | [address];[place] | | | | | | [address] | | | | + + + + + + | Leukocyte | NEGATIVEComment: Testing | | EXTERNAL | | | Esterase, | performed at [facility];[address] | | LAB | | | Urine | [address];[place] | | | | | | [address] | | | | + + + + + + | Nitrite, | NEGATIVEComment: Testing | | EXTERNAL | | | Urine | performed at [facility];[address] | | LAB | | | | [address];[place] | | | | | | [address] | | | | + + + + + + | Urobilinoge | NORMALComment: Testing | mg/dL | EXTERNAL | | | n, Urine | performed at [facility];[address] | | LAB | | | | [address];[place] | | | | | | [address] | | | | + + + + + + | Protein, | NEGATIVEComment: Testing | mg/dL | EXTERNAL | | | Urine | performed at [facility];[address] | | LAB | | | | [address];[place] | | | | | | [address] | | | | + + + + + + | pH, Urine | 5.0Comment: Testing | 5.0 - 8.0 | EXTERNAL | | | | performed at [facility];[address] | | LAB | | | | [address];[place] | | | | | | [address] | | | | + + + + + + | Blood, | NEGATIVEComment: Testing | | EXTERNAL | | | Urine | performed at [facility];[address] | | LAB | | | | [address];[place] | | | | | | [address] | | | | + + + + + + | Ketones | NEGATIVEComment: Testing | mg/dL | EXTERNAL | | | | performed at [facility];[address] | | LAB | | | | [address];[place] | | | | | | [address] | | | | + + + + + + | Bilirubin, | NEGATIVEComment: Testing | | EXTERNAL | | | Urine | performed at [facility];[address] | | LAB | | | | [address];[place] | | | | | | [address] | | | | + + + + + + | Glucose, | 50 (A)Comment: Testing | mg/dL | EXTERNAL | | | Urine | performed at [facility];[address] | | LAB | | | | [address];[place] | | | | | | [address] | | | | + + + [...] | performed by [facility] Testing performed at [facility];[address] [facility];[place], [place] | | | [address] INFLUENZA B NEGATIVE | | | Testing performed by [facility] Testing performed at [facility];[address] [facility] | | | [facility];[place] [address] | | + + + + +---------+ [...] | | | | | [address];[place] [address] | | | | + + + + + + | Non- | 5.15Comment: Testing | 4.20 - 5.70 | EXTERNAL | | | Red Blood | performed at [facility];[address] | M/uL | LAB | | | Cells | [address];[place] | | | | | Counted | [address] | | | | + + + + + + | Hemoglobin | 15.7Comment: Testing | 13.2 - 17.0 | EXTERNAL | | | | performed at [facility];[address] | g/dL | LAB | | | | [address];[place] | | | | | | [address] | | | | + + + + + + | Hematocrit, | 46.2Comment: Testing | 39.0 - 50.0 % | EXTERNAL | | | POC | performed at [facility];[address] | | LAB | | | | [address];[place] | | | | | | [address] | | | | + + + + + + | MCV | 89.6Comment: Testing | 80.0 - 100.0 fl | EXTERNAL | | | | performed at [facility];[address] | | LAB | | | | [address];[place] | | | | | | [address] | | | | + + + + + + | MCH | 30.4Comment: Testing | 27.0 - 34.0 pg | EXTERNAL | | | | performed at [facility];[address] | | LAB | | | | [address];[place] | | | | | | [address] | | | | + + + + + + | MCHC | 33.9Comment: Testing | 32.0 - 35.5 | EXTERNAL | | | | performed at [facility];[address] | g/dL | LAB | | | | [address];[place] | | | | | | [address] | | | | + + + + + + | RDW-CV | 48.1Comment: Testing | 37 - 53 fl | EXTERNAL | | | | performed at [facility];[address] | | LAB | | | | [address];[place] | | | | | | [address] | | | | + + + + + + | Platelet | 99 (L)Comment: Testing | 150 - 400 K/uL | EXTERNAL | | | Count | performed at [facility];[address] | | LAB | | | Plasma | [address];[place] | | | | | | [address] | | | | + + + + + + | MPV | 8.7Comment: Testing | fl | EXTERNAL | | | | performed at [facility];[address] | | LAB | | | | [address];[place] | | | | | | [address] | | | | + + + + + + | Differentia | AUTOMATEDComment: | | EXTERNAL | | | l Type | Testing performed at | | LAB | | | | [facility];[address];[place] [address] | | | | + + + + + + | % Segmented | 83.01Comment: Testing | % | EXTERNAL | | | | performed at [facility];[address] | | LAB | | | Neutrophils | [address];[place] | | | | | | [address] | | | | + + + + + + | % | 8.29Comment: Testing | % | EXTERNAL | | | Lymphocytes | performed at [facility];[address] | | LAB | | | | [address];[place] | | | | | | [address] | | | | + + + + + + | % Monocytes | 7.46Comment: Testing | % | EXTERNAL | | | | performed at [facility];[address] | | LAB | | | | [address];[place] | | | | | | [address] | | | | + + + + + + | % | 0.85Comment: Testing | % | EXTERNAL | | | Eosinophils | performed at [facility];[address] | | LAB | | | | [address];[place] | | | | | | [address] | | | | + + + + + + | % Basophils | 0.39Comment: Testing | % | EXTERNAL | | | | performed at [facility];[address] | | LAB | | | | [address];[place] | | | | | | [address] | | | | + + + + + + | Absolute | 10.02 (H)Comment: | 1.90 - 7.40 | EXTERNAL | | | Segmented | Testing performed at | K/uL | LAB | | | Neutrophils | [facility];[address];[place] [address] | | | | + + + + + + | Absolute | 1.00Comment: Testing | 1.00 - 3.90 | EXTERNAL | | | Lymphocytes | performed at [facility];[address] | K/uL | LAB | | | | [address];[place] | | | | | | [address] | | | | + + + + + + | Absolute | 0.90 (H)Comment: Testing | 0.00 - 0.80 | EXTERNAL | | | Monocytes | performed at [facility];[address] | K/uL | LAB | | | | [address];[place] | | | | | | [address] | | | | + + + + + + | Absolute | 0.10Comment: Testing | 0.00 - 0.50 | EXTERNAL | | | Eosinophils | performed at [facility];[address] | K/uL | LAB | | | | [address];[place] | | | | | | [address] | | | | + + + + + + | Absolute | 0.05Comment: Testing | 0.00 - 0.10 | EXTERNAL | | | Basophils | performed at [facility];[address] | K/uL | LAB | | | | [address];[place] | | | | | | [address] | | | | + + + [...] EXTERNAL | | | | performed at [facility];[address] | mmol/L | LAB | | | | [address];[place] | | | | | | [address] | | | | + + + + + + | K | 3.6Comment: Testing | 3.5 - 4.9 | EXTERNAL | | | | performed at [facility];[address] | mmol/L | LAB | | | | [address];[place] | | | | | | [address] | | | | + + + + + + | Cl | 95 (L)Comment: Testing | 99 - 109 mmol/L | EXTERNAL | | | | performed at [facility];[address] | | LAB | | | | [address];[place] | | | | | | [address] | | | | + + + + + + | CO2 | 29Comment: Testing | 23 - 32 mmol/L | EXTERNAL | | | | performed at [facility];[address] | | LAB | | | | [address];[place] | | | | | | [address] | | | | + + + + + + | Anion Gap | 17Comment: Testing | 5 - 20 mmol/L | EXTERNAL | | | | performed at [facility];[address] | | LAB | | | | [address];[place] | | | | | | [address] | | | | + + + + + + | Glucose, | 117 (H)Comment: Testing | 65 - 99 mg/dL | EXTERNAL | | | Fasting | performed at [facility];[address] | | LAB | | | | [address];[place] | | | | | | [address] | | | | + + + + + + | BUN | 25Comment: Testing | 8 - 25 mg/dL | EXTERNAL | | | | performed at [facility];[address] | | LAB | | | | [address];[place] | | | | | | [address] | | | | + + + + + + | Creatinine | 1.6 (H)Comment: Testing | 0.70 - 1.30 | EXTERNAL | | | | performed at [facility];[address] | mg/dL | LAB | | | | [address];[place] | | | | | | [address] | | | | + + + + + + | BUN/Creatin | 16Comment: Testing | | EXTERNAL | | | ine Ratio | performed at [facility];[address] | | LAB | | | | [address];[place] | | | | | | [address] | | | | + + + + + + | Calcium | 8.4 (L)Comment: Testing | 8.5 - 10.5 | EXTERNAL | | | | performed at [facility];888 | mg/dL | LAB | | | | [address];[place] | | | | | | [address] | | | | + + + + + + | Protein, | 7.7Comment: Testing | 6.3 - 8.2 g/dL | EXTERNAL | | | Total | performed at [facility];[address] | | LAB | | | | [address];[place] | | | | | | [address] | | | | + + + + + + | Albumin | 3.5Comment: Testing | 3.3 - 4.8 g/dL | EXTERNAL | | | | performed at [facility];[address] | | LAB | | | | [address];[place] | | | | | | [address] | | | | + + + + + + | Globulin | 4.2Comment: Testing | 1.3 - 4.9 g/dL | EXTERNAL | | | | performed at [facility];[address] | | LAB | | | | [address];[place] | | | | | | [address] | | | | + + + + + + | A/G Ratio | 0.8 (L)Comment: Testing | 1.0 - 2.4 | EXTERNAL | | | | performed at [facility];[address] | | LAB | | | | [address];[place] | | | | | | [address] | | | | + + + + + + | Bilirubin | 1.4Comment: Testing | 0.1 - 1.5 mg/dL | EXTERNAL | | | Total | performed at [facility];[address] | | LAB | | | | [address];[place] | | | | | | [address] | | | | + + + + + + | ALP, | 52Comment: Testing | 35 - 115 U/L | EXTERNAL | | | External | performed at [facility];[address] | | LAB | | | | [address];[place] | | | | | | [address] | | | | + + + + + + | AST | 24Comment: Testing | 10 - 45 U/L | EXTERNAL | | | | performed at [facility];[address] | | LAB | | | | [address];[place] | | | | | | [address] | | | | + + + + + + | ALT | 23Comment: Testing | 10 - 65 U/L | EXTERNAL | | | | performed at [facility];[address] | | LAB | | | | [address];[place] | | | | | | [address] | | | | + + + [...] | | | | | | at [facility];[address];[place] [address] | | | | + + + [...]
--- OUTSIDE RECORDS SUMMARY | ~2020-07-26 | XMS | Encounter Summary ---
Demographics + + + | Address | [address] | | | [place] [address] | + + + | Home Phone [...] Team Providers + +------+ + | Care Composite Boat Builder Name | Role | Phone | + +------+ + | Erin Forrester MD | PCP | | + +------+ + Encounter Details +--------+ + + + + | Date | Type | Department | Care Team | Description | +--------+ + + + + | 07/18/ | Documentati | [facility] | Bobbi Palacio, | | | 2020 | on | CARDIOLOGY AARON Cheung MD [address] | | | | | [address] | [place] | | | | | [place], [place] | [address] | | | | | [address] | | | | | | [phone] | | | +--------+ + + + [...]
--- OUTSIDE RECORDS SUMMARY | ~2020-07-26 | XMS | Encounter Summary ---
Demographics + + + | Address | [address] | | | [place] [address] | + + + | Home Phone [...] Team Providers + +------+ + | Care Easement Man Name | Role | Phone | [...] | | | [address] | [address] | Infectious disease | | | | Loop [facility] | [place], [place] | | | | | Pavilion, 3rd floor | [address] | | | | | [place], [place] | [phone] | | | | | [address] | | | | | | [phone] | | | +--------+ + + + [...] Celia Hawthorne RN - 07/01/2018 1:36 PM [facility] check in - Transitional Care Management Note ASSESSMENT Spoke with Beth Mas, of patient who is , at [phone]. Beth stated that infusi ons of cefazolin [...] without provider involvement . CELIA HAWTHORNE RN [facility] INFECTIOUS DISEASE PPV INFECTIOUS DISEASES AT [facility] 3RD FLOOR [address] [facility] [place] [address] documented in this enc ounter Plan of Treatment Not on filedocumented as of this encounter Visit Diagnoses Not on filedocumented in this encounter"
--- OUTSIDE RECORDS SUMMARY | ~2020-07-26 | XMS | Encounter Summary ---
Demographics + + + | Address | [address] | | | [place] [address] | + + + | Home Phone [...] Providers + +------+ + | Care Quality Improvement Analyst Name | Role | Phone | [...] floor | | | | | | [place], [place] | | | | | | [address] | | | +--------+ + + + [...]
--- OUTSIDE RECORDS SUMMARY | ~2020-07-26 | XMS | Encounter Summary ---
Demographics + + + | Address | [address] | | | [place] [address] | + + + | Home Phone [...] Team Providers + +------+ + | Care Integrated Circuit Design Engineer Name | Role | Phone | [...] | | | | Loop [facility] | [place], [place] | | | | | Pavilion, 3rd floor | [address] | | | | | [place], [place] | [phone] | | | | | [address] | | | | | | [phone] | | | +--------+ + + + [...] Celia Hawthorne RN - 07/01/2018 1:36 PM [facility] check in - Transitional Care Management Note ASSESSMENT Spoke with Beth Mas, of patient who is , at [phone]. Beth stated that infusi ons of cefazolin [...] without provider involvement . CELIA HAWTHORNE RN [facility] INFECTIOUS DISEASE PPV INFECTIOUS DISEASES AT [facility] 3RD FLOOR [address] [place] [address] documented in this enc ounter Plan of Treatment Not on filedocumented as of this encounter Visit Diagnoses Not on filedocumented in this encounter"
--- OUTSIDE RECORDS SUMMARY | ~2020-07-26 | XMS | Encounter Summary ---
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
--- OUTSIDE RECORDS SUMMARY | ~2020-07-26 | XMS | Encounter Summary ---
Demographics + + + | Address | [address] | | | [place] [address] | + + + | Home Phone [...] Providers + +------+ + | Care Industrial Engineering Intern Name | Role | Phone | [...] | | | | Loop [facility] | [place], [place] | | | | | [place], [facility] floor | [address] | | | | | [place], [place] | [phone] | | | | | [address] | | | | | | [phone] | | | +--------+ + + + [...] [place], FLY - 06/30/2018 2:09 PM [facility] and was informed that the patient left their facility on 06/26/18 because he met h is PT needs. We were not notified. Pt is now under the care of [facility] P [phone] F [phone] and [facility] P [phone] F [phone]. I called and spoke to Joslyn at [facility]. She stated that the patient had his PICC dress ing changed today but that they have not drawn labs as they do not have orders yet. She also said that [facility] is providing the IV cefazolin. I called Diana and spoke to Jaquelin, who said that this patient is not on service with them. She recommended calling the [facility] office in [place]. I called and spoke to Rosalind, pharmacist at [place] office who confirmed that they have the p atient on their service. Abx/PMSO have been faxed to both [facility] and [facility]. Jaye Winchester RN elephone Encounter - Saige Cottrell Ma - 06/26/2018 5:01 PM PDTNotification: unable to obtain OPAT labs from [facility] after multiple attempts Vendor: [facility] Labs that have not been received: weekly CBC with Differential and CMP Attempt 1: date: 06/26/18, time: 4:58pm, contact name/title: FYL Jerez, conversation detail s: Called and spoke [...]
--- OUTSIDE RECORDS SUMMARY | ~2020-07-26 | XMS | Encounter Summary ---
Demographics + + + | Address | [address] | | | [place] [address] | + + + | Home Phone | | + + + | Preferred Language | Unknown | + + + | Marital Status | | + + + | Nondenominational Affiliation | 1077 | + + + | Race | White | + + + | Ethnic Group | Not or | + + + Author + + + | Author | [facility] | | | and [place] | + + + | Organization | [facility] | | | [...] Providers + +------+ + | Care Insurance Legal Assistant Name | Role | Phone [...] | | | | | | [facility] | | | | | [...] | | | | | [address] | [address] [place] | | | | | [place] [address] | [place] [address] | | | | | [phone] | [phone] | | | | | [phone] | | | +--------+ + + + [...] EVALUATION Duane Mas 78 y.o. male 1940 [id number] Procedure(s): EGD DIL (N/A Mouth) Medical,anesthesia, drug, allergy histories reviewed, NPO status verified. ECG reviewed. Labs reviewed. (+) perioperative beta-afua/statin given/taken. . Review of Systems / Med History Anesthesia History EGD in 2017 - did well with TIVA. Cardiovascular (+) orthopnea, pacemaker ([employer]tronic) (+) Dysrhythmias: (+) hypertension, (+) coronary fior ry disease (s/p PTCA and CABG) of [place] artery. (+) congestive heart failure. . Pulmonary [...]
--- OUTSIDE RECORDS SUMMARY | ~2020-07-26 | XMS | Encounter Summary ---
Demographics + + + | Address | [address] | | | [place] [address] | + + + | Home Phone [...] Team Providers + +------+ + | Care Overhead Worker Name | Role | Phone | + +------+ + PCP | Unavailable | + +------+ + Encounter Details +--------+ + + + + | Date | Type | Department | Care Team | Description | +--------+ + + + + | 10/31/ | Hospital | [facility] | Conversion | Coronary artery | | 2016 | Encounter | [facility] | Transaction, | disease involving | | | | CLINICAL DECISION | Provider Unknown | coronary bypass | | | | [address] [facility] | | graft of newtok | | | | [place], [place] | (Fax) | heart with angina | | | | [address] | Robel Ricci | pectoris ([facility]) | | | | [phone] | MD [address] | | | | | | [address] | | | | | | [place] [address] | | | | | | [phone] | | | | | | | [...] 10/31/151751 Date of Service: 10/31/151749 Status: Signed Procurement Analyst: Karolyn Ronquillo RN (Registered Nurse) Pt discharged once discharge parameters were met. No signs of bleeding were noted upon dis continuation of TR band. Pt given discharge paperwork however left this behind. Pt VSS. P t denies pain. Pt discharged to home with spouse. onver zoe Transaction, Provider Unknown - 10/31/2015 1:58 PM PST Progress Notes by Allan Julio RPH at 10/31/15 3069 Author: Allan Julio RPH Service: (none) Author Type: Pharmacist Filed: 10/31/15 7482 Date of Service: 10/31/151357 Status: Signed Procurement Analyst: Allan Julio RPH (Pharmacist) Renal Dosing Monitoring: [...] Date of Service: 10/31/15 1102 Status: Signed Procurement Analyst: Alex Villegas MD (Physician) [facility] Service: Cardiology Pre-Operative History & Physical Interval [...] 1133 Note Time: 10/18/15 0950 Status: Signed Procurement Analyst: Robel Ricci DO (Physician) Expand All Collapse [...] current dose (simvastatin). DVT (deep venous thrombosis) ([facility]) Hx DVT, right leg, chronic venous insufficiency. On warfarin, managed by PCP. Arterial US, lower Ext, 10/09/2015: TDS, calcification of trifurcation vessels, mild-modera te disease in upper vessels. Diabetes mellitus, type [address]) DM2, managed by PCP. F/U with [...] 2 (two) times daily as need ed. 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
--- OUTSIDE RECORDS SUMMARY | ~2020-07-26 | XMS | Encounter Summary ---
Demographics + + + | Address | [address] | | | [place] [address] | + + + | Home Phone [...] Team Providers + +------+ + | Care Recreational Specialist Name | Role | Phone | [...] | | | | Loop Physician's | [place], [place] | | | | | Pavilion, 3rd floor | [address] | | | | | [place], [place] | [phone] | | | | | [address] | | | | | | [phone] | | | +--------+ + + + [...] AM PDTSpoke with Cierra fernando [facility] ph. [phone] and she confirmed that the patient's PICC line is being pulled t his morning. I will call back to for confirmation this afternoon. documented in this encounter Plan of Treatment Not on filedocumented as of this encounter Visit Diagnoses Not on filedocumented in this encounter"
--- OUTSIDE RECORDS SUMMARY | ~2020-07-26 | XMS | Encounter Summary ---
Demographics + + + | Address | [address] | | | [place] [address] | + + + | Home Phone [...] Providers + +------+ + | Care Chief Physical Therapist Name | Role | Phone | + [...] PADMINI Jerome | | | | | [address] | [address] | | | | | Loop Physician's | [place], [place] | | | | | [place], [facility] floor | [address] | | | | | [place], [place] | [phone] | | | | | [address] | | | | | | [phone] | | | +--------+ + + + [...]
--- OUTSIDE RECORDS SUMMARY | ~2020-07-26 | XMS | Encounter Summary ---
Demographics + + + | Address | [address] | | | [place] [address] | + + + | Home Phone [...] Team Providers + +------+ + | Care Repairer Welding Systems And Equipment Name | Role | Phone | + [...] Provider Unknown | | | | | [address] | | | | | | [address] | (Fax) | | | | | [phone] | | | +--------+ + + + [...]
--- OUTSIDE RECORDS SUMMARY | ~2020-07-26 | XMS | Encounter Summary ---
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 | 2 diabetes mellitus | | | | [address] [place], [place] | [place] [address] | without | | | | [address] | | complications (HCC); | | | | [phone] | | Chronic kidney | | | [...]
--- OUTSIDE RECORDS SUMMARY | ~2020-07-26 | XMS | Encounter Summary ---
Demographics + + + | Address | [address] | | | [place] [address] | + + + | Home Phone [...] Providers + +------+ + | Care Program Management Manager Name | Role | Phone | + +------+ + PCP | Unavailable | + +------+ + Encounter Details +--------+ + + + + | Date | Type | Department | Care Team | Description | +--------+ + + + + | 10/12/ | Hospital | [facility] | Olaf Nicole | | | 1997 - | Encounter | HEART MED CTR | MD [address] | | | | | CARDIAC TRANSPLANT | [address] | | | 10/13/ | | [address] | [place] [address] | | | 1997 | | [place] | [phone] | | | | | [address] | | | | | | [phone] | | | +--------+ + + + [...]
--- OUTSIDE RECORDS SUMMARY | ~2020-07-26 | XMS | Encounter Summary ---
Demographics + + + | Address | [address] | | | [place] [address] | + + + | Home Phone [...] Providers + +------+ + | Care Regional Psychiatric Director Name | Role | Phone | + +------+ + | Erin Forrester MD | PCP | | + +------+ + Encounter Details +--------+ + + + + | Date | Type | Department | Care Team | Description | +--------+ + + + + | 03/08/ | Orders Only | [facility] | Conversion | | | 2019 | | NEPHROLOGY [place] | Transaction, | | | | | [address] | Provider Unknown | | | | | [address] | [phone] | | | | | [address] | | | | | | [phone] | | | +--------+ + + + [...]
--- OUTSIDE RECORDS SUMMARY | ~2020-07-26 | XMS | Encounter Summary ---
Demographics + + + | Address | [address] | | | [place] [address] | + + + | Home Phone [...] Providers + +------+ + | Care Retail Stock Clerk Name | Role | Phone [...] + | 07/31/ | Hospital | [facility] | Willow Colin MD | | | 2017 | Encounter | MED CTR MP INTRA OP | [address] | | | | | [address] | [address], | | | | | [place] | [place] [address] | | | | | [address] | [phone] | | | | | [phone] | | | +--------+ + + + [...] fluids. 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 meat supervisor omeprazole at [place], [place]. documented in this encounter Medications at [...] ST. | [address] | [place] | [phone] | | [facility] | | [address] | | | - LABORATORY | | [...] Helicobacter pylori with HE stain. [facility]:caw:[id number] GROSS | | | DESCRIPTION: A. [...] technical and professional components were performed by [facility] | | | [facility], [address] [place] [address] | | | (Pharmacists: Don Morrell D.O.; IA#: [id number]). | | | Diagnostician: Gavin Michaud MD [...] ONCE PRN, Wheezing, | | | Starting [facility] 07/31/17 at 1242, | | | [...]
--- OUTSIDE RECORDS SUMMARY | ~2020-07-26 | XMS | Encounter Summary ---
Demographics + + + | Address | [address] | | | [place] [address] | + + + | Home Phone [...] Team Providers + +------+ + | Care Inspection And Testing Supervisor Name | Role | Phone | [...] | | | [address] | [facility] | | | | | Loop Physician's | [place], [place] | | | | | [place], [address] [place] [address] | [address] | | | | | [place], [place] | [phone] | | | | | [address] | | | | | | [phone] | | | +--------+ + + + [...] received orders. Confirmed with RN KARLA at [facility] that they will [...]
--- OUTSIDE RECORDS SUMMARY | ~2020-07-26 | XMS | Encounter Summary ---
Demographics + + + | Address | [address] | | | [place] [address] | + + + | Home Phone [...] Team Providers + +------+ + | Care Poured Pipe Maker Name | Role | Phone | + +------+ + | Erin Forrester MD | PCP | | + +------+ + Encounter Details +--------+ + + + + | Date | Type | Department | Care Team | Description | +--------+ + + + + | 12/06/ | Orders Only | [facility] | Conversion | | | 2017 | | CARDIOLOGY [place] | Transaction, | | | | | [address] | Provider Unknown | | | | | [place] | [phone] | | | | | [address] | | | | | | [phone] | | | +--------+ + + + [...]
--- OUTSIDE RECORDS SUMMARY | ~2020-07-26 | XMS | Encounter Summary ---
Demographics + + + | Address | [address] | | | [place] [address] | + + + | Home Phone [...] Team Providers + +------+ + | Care Recreation Professor Name | Role | Phone | [...] | 2018 | | PADMINI Hernandez | [address] | POSSIBLE COMPONENT | | | | Rd [facility] Main | [facility] [place] | EXCHANGE, POSSIBLE | | | | Hospital Admitting | [address] | REVISION | | | | Desk Located on the | [phone] | | | | | 9th floor | | | | | | [place], [place] | | | | | | [address] | | | +--------+---------+ + + + [...] | | 0 | | | | [id number] | mouth once daily. | | | [...] Leon who advised PT to come to [facility] ED. Advised Dr. Yen [...]
--- OUTSIDE RECORDS SUMMARY | ~2020-07-26 | XMS | Encounter Summary ---
Demographics + + + | Address | [address] | | | [place] [address] | + + + | Home Phone [...] Providers + +------+ + | Care Senior Maintenance Machinist Name | Role | Phone | + [...]
--- OUTSIDE RECORDS SUMMARY | ~2020-07-26 | XMS | Encounter Summary ---
Demographics + + + | Address | [address] | | | [place] [address] | + + + | Home Phone [...] Providers + +------+ + | Care Insurance Licensing Supervisor Name | Role | Phone | + +------+ + PCP | Unavailable | + +------+ + Encounter Details +--------+ + + + + | Date | Type | Department | Care Team | Description | +--------+ + + + + | 05/18/ | Hospital | [facility] | Olaf Nicole | | | 1998 - | Encounter | HEART MED CTR | MD [address] | | | | | CARDIAC TRANSPLANT | [address] | | | 05/19/ | | [address] | [place] [address] | | | 1998 | | [place] | [phone] | | | | | [address] | | | | | | [phone] | | | +--------+ + + + [...]
--- OUTSIDE RECORDS SUMMARY | ~2020-07-26 | XMS | Encounter Summary ---
Demographics + + + | Address | [address] | | | [place] [address] | + + + | Home Phone [...] Author + + + | Author | [facility] | + + + | Organization | [facility] | + + + | Address | Unknown | + + + | Phone | Unavailable | + + + Support + + +---------+ + | Name | Relationship | Address | Phone | + + +---------+ + | Beth Mas | ECON | Unknown | | + + +---------+ + Care Team Providers + +------+ + | Care Crew Scheduler Name | Role | Phone | [...] PADMINI Jerome | | | | | [address] | [address] | | | | | Loop Physician's | [place], [place] | | | | | [place], [facility] floor | [address] | | | | | [place], [place] | [phone] | | | | | [address] | | | | | | [phone] | | | +--------+ + + + [...]
--- OUTSIDE RECORDS SUMMARY | ~2020-07-26 | XMS | Encounter Summary ---
Demographics + + + | Address | [address] | | | [place] [address] | + + + | Home Phone [...] Team Providers + +------+ + | Care X Ray Developing Machine Operator Name | Role | Phone | + +------+ + PCP | Unavailable | + +------+ + Encounter Details +--------+ + + + + | Date | Type | Department | Care Team | Description | +--------+ + + + + | 10/12/ | Hospital | [facility] | Olaf Nicole | | | 1997 - | Encounter | HEART MED CTR | MD [address] [place] | | | | | CARDIAC TRANSPLANT | [address] | | | 10/13/ | | [address] | [place] [address] | | | 1997 | | [place] | [phone] | | | | | [address] | | | | | | [phone] | | | +--------+ + + + [...]
--- OUTSIDE RECORDS SUMMARY | ~2020-07-26 | XMS | Encounter Summary ---
Demographics + + + | Address | [address] | | | [place] [address] | + + + | Home Phone [...] + | Author | [facility] | | | and [place] | + + + | Organization | [facility] | | | [...] Team Providers + +------+ + | Care Compensation Administrator Name | Role | Phone | + +------+ + PCP | Unavailable | + +------+ + Encounter Details +--------+ + + + + | Date | Type | Department | Care Team | Description | +--------+ + + + + | 09/29/ | Hospital [facility] | Zeb Giang | | | 2000 - | Encounter | HEART MED CTR | [address] [place] | | | | | CARDIAC TELEMETRY | [address] [place], [place] | | | 10/04/ | | [address] | [address] | | | 2000 | | [place] | | | | | | [address] | | | | | | [phone] | | | +--------+ + + + [...]
--- OUTSIDE RECORDS SUMMARY | ~2020-07-26 | XMS | Encounter Summary ---
Demographics + + + | Address | [address] | | | [place] [address] | + + + | Home Phone [...] Team Providers + +------+ + | Care Plate Painter Apprentice Name | Role | Phone | [...] | Anesthesia | [facility] | dL Corado, | | | 2017 | Event | MED CTR MP INTRA OP | [address] | | | | | [address] | [place] | | | | | [place] | [address] | | | | | [address] | | | | | | [phone] | | | +--------+ + + + [...] [address] | | eral | Hand; [id number]-[id number] catheter | Fred Mendoza RN | Fred [...] EVALUATION Duane Mas 77 y.o. male 1940 [id number] Procedure(s) EGD with Dilation (N/A Mouth) Cooperates? [...] Ld Corado MD 07/31/2017 [facility] [facility] [facility] Ld Corado MD at 02/2017 12:45 PM PDTAnesthesia Preprocedure Evaluation - Ld Corado MD - 07/30/2017 11: 41 AM PDT ANESTHESIA PREANESTHESIA EVALUATION Duane Mas 77 y.o. male 1940 [id number] Procedure(s): EGD with Dilation (N/A Mouth) Medical [...]
--- OUTSIDE RECORDS SUMMARY | ~2020-07-26 | XMS | Encounter Summary ---
Demographics + + + | Address | [address] | | | [place] [address] | + + + | Home Phone [...] Providers + +------+ + | Care Chief Clinical Officer Name | Role | Phone | [...] | | | | Loop Physician's | [place], [place] | | | | | [place], [facility] floor | [address] | | | | | [place], [place] | [phone] | | | | | [address] | | | | | | [phone] | | | +--------+--------+ + + + [...]
--- OUTSIDE RECORDS SUMMARY | ~2020-07-26 | XMS | Encounter Summary ---
Demographics + + + | Address | [address] | | | [place] [address] | + + + | Home Phone [...] Team Providers + +------+ + | Care Compliance And Control Analyst Name | Role | Phone | + +------+ + | Erin Forrester MD | PCP | | + +------+ + Encounter Details +--------+ + + + + | Date | Type | Department | Care Team | Description | +--------+ + + + + | 03/08/ | Orders Only | [facility] | Conversion | | | 2019 | | NEPHROLOGY [place] | Transaction, | | | | | [address] | Provider Unknown | | | | | [address] | [phone] | | | | | [address] | | | | | | [phone] | | | +--------+ + + + [...]
--- OUTSIDE RECORDS SUMMARY | ~2020-07-26 | XMS | Encounter Summary ---
Demographics + + + | Address | [address] | | | [place] [address] | + + + | Home Phone [...] Team Providers + +------+ + | Care Sign Fabricator Name | Role | Phone | + [...] | | | | | | [place], [place] | | | | | | [address] | | | +--------+ + + + [...]
--- OUTSIDE RECORDS SUMMARY | ~2020-07-26 | XMS | Encounter Summary ---
Demographics + + + | Address | [address] | | | [place] [address] | + + + | Home Phone [...] Team Providers + +------+ + | Care Risk Mgr Name | Role | Phone | + [...] [facility] | | | | | | [facility] | | | | | | and Healing, | | | | | | Building [address], [address]th | | | | | | Floor [place], [place] | | | | | | [address] | | | | | | [phone] | | | +--------+ + + + [...] Dear | | | | | | [place]: [place] | | | | | | [...] [address] [address] | [place] [address] | | | DERMATOPATHOLOGY | [address] | | | + + + + + | [facility] | Mail[address] | [place] [address] | | | DERMATOPATHOLOGY | [address] | | | + + + + + documented in this encounter Visit Diagnoses Not on filedocumented in this encounter"
[~2020-07-26 14:17] MED LIST changes: +ACETAMINOPHEN-1 EAC1 PO; -COUMADIN2.5 MG PO; +DESONIDE15 G1 TOP; +FISH OIL 1,0001 EAC2 PO; +MAGNESIUM OXID420 MG PO; +WARFARIN SODIUM2 MG PO
--- OUTSIDE RECORDS SUMMARY | 2020-07-26 14:20 | XMS ---
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 Alexis VISIT COUNT (12 MO.) 6 [facility] TOTAL 6 NOTE: Visits indicate total known visits. ED/UCC VISIT TRACKING (12 MO.) 07/26/2020 14:18 [facility] [place] TYPE: Emergency COMPLAINT: - MEDICAL CLEARANCE 07/16/2020 08:24 [facility] [place] TYPE: Emergency [...] 2 diabetes mellitus without complications - Other terminal operator (current) drug therapy 06/19/2020 18:29 [facility] [place] TYPE: Emergency COMPLAINT: - SOB/FEVER DIAGNOSES: - Old myocardial infarction - Other terminal operator (current) drug therapy - Heart failure, unspecified - Personal history of nicotine dependence - Fever, unspecified - Hypertensive heart disease with heart failure - Type 2 diabetes mellitus without complications - Allergy status to sulfonamides status 12/19/2019 23:12 [facility] [place] TYPE: Emergency COMPLAINT: - CONSTIPATION/ FEVER/URINE PROBLEM INPATIENT VISIT TRACKING (12 MO.) [facility]2020 [facility] [place] [facility] DIAGNOSES: - 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 - Acute on chronic systolic (congestive) heart failure - Sick sinus syndrome - Presence of cardiac pacemaker - Hypotension, unspecified - Dilated cardiomyopathy - Chronic kidney disease, stage 4 (severe) - Conduction disorder, unspecified - Ventricular tachycardia - 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 - Ischemic cardiomyopathy - Supraventricular tachycardia - 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, rhabdomyolysis - COVID-19 - Chronic systolic (congestive) heart failure - Presence of aortocoronary bypass graft - Hyperlipidemia, unspecified 07/16/2020 14:11 MARVIN Arias TYPE: Critical Care COMPLAINT: - RHABDOMYLYSIS DIAGNOSES: - Dilated cardiomyopathy - [facility]CI (current) use of oral hypoglycemic drugs - Acute pharyngitis, unspecified - 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 - [facility]CI (current) use of anticoagulants - Type 2 diabetes mellitus with hypoglycemia without coma - Infection and inflammatory reaction due to internal right kne - 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 - Presence of aortocoronary bypass graft - Ventricular tachycardia - Allergy status to sulfonamides status - Other long-term (current) drug therapy - COVID-19 - Hypotension, unspecified - Chronic systolic (congestive) heart failure - Presence of cardiac pacemaker - Rhabdomyolysis - Hypertensive heart disease with heart failure - Old myocardial infarction 12/19/2019 23:13 [facility] Gonzalez [place] TYPE: Observation COMPLAINT: - UTI DIAGNOSES: - Personal history of nicotine dependence - 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 - petroleum terminal plant operator (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) use of oral hypoglycemic drugs - Personal history of other diseases of the circulatory system - Chronic kidney disease, unspecified - Unspecified staphylococcus as the cause of diseases classifie - FCI (current) use of antibiotics - Heart failure, unspecified - Old myocardial infarction - Unspecified osteoarthritis, unspecified site - Hypertensive heart and chronic kidney disease with heart fail - Other long-term (current) drug therapy - Urinary tract infection, site not specified - 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
[2020-07-27] MEDS ORDERED: ATORVASTATIN CA20 MG PO (08:20)
[2020-07-27] MEDS ORDERED: ENTRESTO 24 MG1 EACH PO (08:21)
[2020-07-27] MEDS ORDERED: GLIPIZIDE5 MG PO (08:22)
[2020-07-27] MEDS ORDERED: METOPROLOL SUCC50 MG PO (08:22)
[2020-07-27] MEDS ORDERED: ASPIRIN81 MG PO (08:55)
[2020-07-27] MEDS ORDERED: HYDROXYCHLOROQ200 MG PO (09:02)
--- NOTE | 2020-07-27 17:48 | EKG ---
[facility] [address] [facility] [place] [address] Signed Sinus rhythm with 1st degree AV block with frequent premature ventricular complexes Left axis deviation Right bundle branch block T wave abnormality, consider lateral ischemia Abnormal ECG When compared with ECG of 16-JUL-2020 08:52, Sinus rhythm has replaced Wide QRS rhythm Confirmed by ANIBAL VARGAS DO ([id number]) on 07/27/2020 5:48:44 PM Electronically Signed By: ANIBAL VARGAS DO 07/27/20 1748 PATIENT NAME: JÚNIOR ARREOLA Electrocardiogram DATE OF : 36 PHYSICIAN: ANIBAL VARGAS DO REPORT #: [id number] REPORT IS CONFIDENTIAL AND NOT TO BE RELEASED WITHOUT AUTHORIZATION
--- NOTE | 2020-07-28 00:40 | PATH ---
[facility] [address] [place], [place] [address] Signed ORDERING PHYSICIAN: Dick AGUILAR, Syed Massey PATIENT NAME: JÚNIOR ARREOLA GENDER: M : 1940 Prior History: DATE CASE NUM ADEQUACY DIAGNOSIS HPV RESULTS PHYSICIAN The 5 most recent reports are included. This history does not include results of pap smears performed at another laboratory. SPECIMEN(S): No Source Given MOLECULAR PATHOLOGY RESULTS: SARS-CoV-2 Not Detected ADDITIONAL NOTES.: The Delight Fusion SARS-CoV-2 Assay is a multiplex real-time PCR (RT-PCR) in vitro diagnostic test intended for the qualitative detection of RNA from SARS-CoV-2 from individuals who meet COVID-19 clinical and/or epidemiological criteria. In general, SARS-CoV-2 RNA can be detected during the acute phase of infection. Positive results indicate the presence of SARS-CoV-2 RNA. Clinical correlation with patient history and other diagnostic information is necessary to determine patient infection status. Positive results do not rule out bacterial infection or co-infection with other viruses. Negative results do not preclude SARS-CoV-2 infection and should not be used as the sole basis for patient management decisions. Negative results must be combined with other clinical observations, patient history, and epidemiological information. The Delight Fusion SARS-CoV-2 Assay is not yet approved or cleared by the [place] FDA. When there are no FDA-approved or cleared tests available, and other criteria are met, FDA can make tests available under an emergency access mechanism called an Emergency Use Authorization (EUA). The EUA for this test is supported by the [place] of Health and Human Service's (HHS's) declaration that circumstances exist to justify the emergency use of in vitro diagnostics for the detection and/or diagnosis of the virus that causes COVID-19. This EUA will remain in effect for the duration of the COVID-19 declaration justifying emergency of IVDs, unless it is terminated or PATIENT NAME: JÚNIOR ARREOLA PATHOLOGY DATE OF : 36 REPORT #: [id number] PHYSICIAN: COLT PATHOLOGY PCP: GILMA CULVER MD REPORT IS CONFIDENTIAL AND NOT TO BE RELEASED WITHOUT AUTHORIZATION [facility] [address] [place], [place] [address] Signed revoked by FDA, after which the test may no longer be used. The Delight Fusion SARS-CoV-2 Assay is for use only under EUA in US laboratories certified under the Clinical Laboratory Improvement Amendments of 1988 (CLIA) to perform high complexity tests. [facility] is certified under CLIA to perform high complexity clinical laboratory testing. PERFORMING LABORATORY.: Molecular testing was performed by [facility] [address] [place] [address] (Cv/Cvn Cv Tsc System Operator: Don Morrell D.O.; CLIA#: [id number]) Diagnostician: System Interface Pathologist Electronically Signed 07/28/2020 Copies: ~ PATIENT NAME: JÚNIOR ARREOLA PATHOLOGY DATE OF : 36 REPORT #: [id number] PHYSICIAN: COLT MITCHELL PCP: GILMA CULVER MD REPORT IS CONFIDENTIAL AND NOT TO BE RELEASED WITHOUT AUTHORIZATION
--- NOTE | 2020-07-31 11:30 | OR ---
[facility] [address], [place] [address] Signed DATE OF OPERATION: 07/28/2020 SURGEON: Silverio Quinteros MD PREOPERATIVE DIAGNOSIS: Need for central venous catheterization for pressor administration; critical illness. POSTOPERATIVE DIAGNOSIS: Need for central venous catheterization for pressor administration; critical illness. PROCEDURE: Attempted right subclavian and right internal jugular central venous catheterization unsuccessful. ANESTHESIA: Lidocaine, 1%. INDICATIONS: This 80-year-old white man, is in the Intensive Care Unit and request was made by Dr. Cary for central venous catheterization for further monitoring and administration of pressor agents. The patient is relatively hypotensive, though he sustained it well with inotropic support. Complicating the situation is the patient with significant neck fusion, inability to extend the neck, inability to rotate to the left to the right. Additionally, he has a left infraclavicular pacemaker placement. Central venous catheterization will be attempted, understanding the risks of bleeding, infection, pneumothorax, and failure to provide for access. Additionally noted his INR is elevated greater than 3.5. He is not thrombocytopenic at least. FINDINGS: Access from the left subclavian area was quite impossible on the basis of prior pacemaker placement. Atypical plan for right internal jugular catheterization was deemed less likely considering inability to extend and rotate his neck at all. On that basis, a right subclavian approach was undertaken. Access to the subclavian vein was undertaken showing dark nonpulsatile blood, but despite multiple efforts to do so, the central line wire could not be manipulated more than several centimeters. Attempt at a right-sided catheterization was unsuccessful. DESCRIPTION OF PROCEDURE: After informed consent as to risks of bleeding, infection, pneumothorax, and so forth, he was placed in supine position. His head is immobile and somewhat flexed. The upper Electronically Signed By: SILVERIO QUINTEROS MD 07/31/20 1130 PATIENT NAME: JÚNIOR ARREOLA OPERATIVE REPORT DATE OF : 36 REPORT #: [id number] PHYSICIAN: SILVERIO QUINTEROS MD PCP: GILMA CULVER MD REPORT IS CONFIDENTIAL AND NOT TO BE RELEASED WITHOUT AUTHORIZATION [facility] [address], [place] [address] Signed neck and chest were prepared with a chlorhexidine solution and draped sterilely. A 1% lidocaine was injected in the right infraclavicular space. Using the Seldinger technique with extreme care, the right subclavian vein was encountered showing dark nonpulsatile blood. A flexible J-wire was passed down the needle a short distance, but then encountered resistance. It was removed and multiple attempts were made to pass the wire. In each case, aspiration on the needle showed dark nonpulsatile blood, clearly consistent with subclavian vein angiocatheter was attempted and unsuccessful. Further attempts to access the subclavian vein were unsuccessful as well. Lidocaine was injected in the lateral side of the right neck. With palpation using the left hand of the carotid system, access for the right internal jugular vein was attempted, but unsuccessful. Band-Aids were applied. ASSESSMENT: Incomplete ability to provide for durable central venous catheter placement. PLAN: At this point, a PICC line may be more appropriate. This is especially to given his coagulopathy. Silverio Quinteros MD JM/MODL /[id number] cc: Syed Cary MD Copies: SYED CARY DO ~ Electronically Signed By: SILVERIO QUINTEROS MD 07/31/20 1130 PATIENT NAME: JÚNIOR ARREOLA OPERATIVE REPORT DATE OF : 36 REPORT #: [id number] PHYSICIAN: SILVERIO QUINTEROS MD PCP: GILMA CULVER MD REPORT IS CONFIDENTIAL AND NOT TO BE RELEASED WITHOUT AUTHORIZATION
[2020-08-01] MEDS ORDERED: LEVOFLOXACIN250 MG PO (12:02)
[2020-08-01] MEDS ORDERED: WARFARIN SODIUM1 MG PO (12:03)
[2020-08-01] MEDS ORDERED: CARVEDILOL3.125 MG PO (12:03)
[2020-08-01] MEDS ORDERED: TORSEMIDE5 MG PO (12:04)
[2020-08-01] MEDS ORDERED: WARFARIN SODIUM2 MG PO (13:33)
== END 2020-08-01 12:00 | disposition swing bed (61) | DRG 871 ==
LOC: ED 14:17 → CCU 19:37 → MS 07-30 09:30
PROVIDERS: Internal Medicine; ADMIT Student in an Organized Health Care Education/Training Program; ATTEND Student in an Organized Health Care Education/Training Program
PROC: 05HF33Z Insertion of Infusion Device into Left Cephalic Vein, Percutaneous Approach (ICD-10-PCS; principal; 2020-07-29 15:30)
DX: A41.59 Other Gram-negative sepsis (principal); I21.A1 Myocardial infarction type 2; N39.0 Urinary tract infection, site not specified; N17.9 Acute kidney failure, unspecified; I50.22 Chronic systolic (congestive) heart failure; I13.0 Hypertensive heart and chronic kidney disease with heart failure and stage 1 through stage 4 chronic kidney disease, or unspecified chronic kidney disease; I47.2 Ventricular tachycardia; T84.53XA Infection and inflammatory reaction due to internal right knee prosthesis, initial encounter; N14.1 Nephropathy induced by other drugs, medicaments and biological substances; T46.5X5A Adverse effect of other antihypertensive drugs, initial encounter; E11.22 Type 2 diabetes mellitus with diabetic chronic kidney disease; N18.9 Chronic kidney disease, unspecified; I48.91 Unspecified atrial fibrillation; I25.2 Old myocardial infarction; M06.9 Rheumatoid arthritis, unspecified; K21.9 Gastro-esophageal reflux disease without esophagitis; E11.649 Type 2 diabetes mellitus with hypoglycemia without coma; I25.10 Atherosclerotic heart disease of native coronary artery without angina pectoris; E11.40 Type 2 diabetes mellitus with diabetic neuropathy, unspecified; I25.5 Ischemic cardiomyopathy; M54.2 Cervicalgia; K12.1 Other forms of stomatitis; N50.89 Other specified disorders of the male genital organs; Z79.2 Long term (current) use of antibiotics; Z87.891 Personal history of nicotine dependence; Z86.19 Personal history of other infectious and parasitic diseases; Z95.0 Presence of cardiac pacemaker; Z79.01 Long term (current) use of anticoagulants; Z79.84 Long term (current) use of oral hypoglycemic drugs; Z79.899 Other long term (current) drug therapy
CPT/HCPCS: 36415; 36569; 51702; 71045; 72040; 73030; 73070; 73080; 80048; 80053; 81001; 82550; 83605; 83735; 84100; 84484; 85025; 85610; 85730; 87040; 87077; 87088; 87186; 87252; 87529; 92610; 93005; 93010; 93971; 97110; 97116; 97140; 97163; 97165; 97530; 97535; 99285-25; C1751; C9803; J0133; J0692; J1815; J3475; J7030; J7060; J7121

== ENCOUNTER 2020-08-01 12:01 | Inpatient (IN) | payer MEDICARE, OTHER ==
[~2020-08-01] VITALS: Ht 170.2 cm; Wt 73.9 kg
--- OUTSIDE RECORDS SUMMARY | ~2020-08-01 | XMS | Encounter Summary ---
Demographics + + + | Address | [address] | | | [place] [address] | + + + | Home Phone | | + + + | Preferred Language | Unknown | + + + | Marital Status | Unknown | + + + | Christianity Affiliation | PRO | + + + | Race | White | + + + | Ethnic Group | Not or | + + + Author + + + | Author | [facility] | + + + | Organization | [facility] | + + + | Address | Unknown | + + + | Phone | Unavailable | + + + Support + + +---------+ + | Name | Relationship | Address | Phone | + + +---------+ + | Beth Mas | ECON | Unknown | | + + +---------+ + Care Team Providers + +------+ + | Care Hand Stamper Name | Role | Phone | + +------+ + | Gilberto Estrada MD | PCP | | + +------+ + Reason for Visit + +--------+ + | Reason | Onset | Comments | | | Date | | + +--------+ + | Transitional Care | 07/01/ | | | Management | 2018 | | + +--------+ + | Infectious disease | 07/01/ | | | | 2017 | | + +--------+ + Encounter Details +--------+ + + + + | Date | Type | Department | Care Team | Description | +--------+ + + + + | 07/01/ | Telephone | Infectious | Celia Hawthorne RN | Transitional Care | | 2018 | | [facility] at [facility] | [address] | Management; | | | | [address] | [address] | Infectious disease | | | | [facility] | [place], [place] | | | | | Pavilion, 3rd floor | [address] | | | | | [place], [place] | [phone] | | | | | [address] | | | | | | [phone] | | | +--------+ + + + + Social History + +-------+ +--------+------+ | Tobacco Use | Types | Packs/Day | Years | Date | | | | | Used | | + +-------+ +--------+------+ | Former Smoker | | | | | + +-------+ +--------+------+ + +---+---+---+ | Smokeless Tobacco: | | [...] + + documented as of this encounter Functional Status + + + + | Functional Status | Response | Date of Assessment | + + + + | Because of a physical, mental, or emotional | No | 06/15/2018 | | condition, do you have serious difficulty | | | | doing errands alone such as visiting the | | | | doctor? | | | + + + + + + + + | Cognitive Status | Response | Date of Assessment | + + + + | Because of a physical, mental, or emotional | No | 06/15/2018 | | condition, do you have serious difficulty | | | | concentrating, remembering, or making | | | | decisions? (5 years old or older) | | | + + + + documented as of this encounter Miscellaneous Notes Telephone Encounter - Celia Hawthorne RN - 07/01/2018 1:36 PM [facility] check in - Transitional Care Management Note ASSESSMENT Spoke with Beth Mas, of patient who is , at [phone]. Beth stated that infusi ons of cefazolin have been administered as scheduled at 0700, 1400 and 2200. Denies any s/s of complication of infection, PICC problems or medication adverse reactions. PICC dressing change performed 06/30/18 and labs will be performed on 07/02/18. Confirmed follow up appointment on 07/22/18. Verified patient's OPAT medications are accura tely listed in current medication list. I have no concerns at this time. PLAN Duane will continue receiving IV antibiotic and also receive weekly lab and line care. Duane will also attend the follow up appointment that is scheduled with Dr. Shields on 06/28 04/13. NURSING OUTCOME EVALUATION Previous nursing concern(s): no previous concern(s). The primary barriers to care identified are: None I believe this patient's NURSING STABILITY is Moderately Stable. During this encounter, patient/caregiver verbalizes agreement with the plan. PERCENT OF NURSE'S TIME DEDICATED TO PATIENT CARE I spent 100% of time on care management RESULTS OF NURSING INTERVENTIONS Interventions during this encounter resulted in call completed without provider involvement . CELIA HAWTHORNE RN [facility] [address] [place] [id number] documented in this enc ounter Plan of Treatment Not on filedocumented as of this encounter Visit Diagnoses Not on filedocumented in this encounter"
--- OUTSIDE RECORDS SUMMARY | ~2020-08-01 | XMS | Encounter Summary ---
Demographics + + + | Address | [address] | | | [place] [address] | + + + | Home Phone | | + + + | Preferred Language | Unknown | + + + | Marital Status | | + + + | Zoroastrianism Affiliation | 1077 | + + + | Race | White | + + + | Ethnic Group | Not or | + + + Author + + + | Author | [facility] | | | and [place] | + + + | Organization | [facility] | | | and [...] Team Providers + +------+ + | Care Aesthetician Name | Role | Phone | + +------+ + | Erin Forrester MD | PCP | | + +------+ + Encounter Details +--------+ + + + + | Date | Type | Department | Care Team | Description | +--------+ + + + + | 01/12/ | Orders Only | [facility] | Conversion | | | 2017 | | NEPHROLOGY [facility] | Transaction, | | | | | [address] | Provider Unknown | | | | | [address] | [phone] | | | | | [address] | | | | | | [phone] | | | +--------+ + + + [...] | EXTERNAL LAB: CBC | Routin | 01/12/2018 | | Results for this | | | e | 9:50 AM | | procedure are in the | | | | PDT | | results section. | + +--------+ + + + | LIPID PANEL | Routin | 01/12/2018 | | Results for this | | | e | 9:50 AM | | procedure are in the | | | | PDT | | results section. | + +--------+ + + + | VITAMIN B-12 | Routin | 01/12/2018 | | Results for this | | | e | 9:50 AM | | procedure are in the | | | | PDT | | results section. | + +--------+ + + + | VITAMIN D, | Routin | 01/12/2018 | | Results for this | | DEFICIENCY SCREEN | e | 9:50 AM | | procedure are in the | | (25-HYDROXY) | | PDT | | results section. | + +--------+ + + + | URINALYSIS, | Routin | 01/12/2018 | | Results for this | | MICROSCOPIC ONLY | e | 9:50 AM | | procedure are in the | | | | PDT | | results section. | + +--------+ + + + | SEDIMENTATION RATE, | Routin | 01/12/2018 | | Results for this | | AUTOMATED | e | 9:50 AM | | procedure are in the | | | | PDT | | results section. | + +--------+ + + + | URIC ACID | Routin | 01/12/2018 | | Results for this | | | e | 9:50 AM | | procedure are in the | | | | PDT | | results section. | + +--------+ + + + | HEMOGLOBIN A1C | Routin | 01/12/2018 | | Results for this | | | e | 9:50 AM | | procedure are in the | | | | PDT | | results section. | + +--------+ + + + | FOLATE | Routin | 01/12/2018 | | Results for this | | | e | 9:50 AM | | procedure are in the | | | | PDT | | results section. | + +--------+ + + + | COMPREHENSIVE | Routin | 01/12/2018 | | Results for this | | METABOLIC PANEL | e | 9:50 AM | | procedure are in the | | | | PDT | | results section. | + +--------+ + + + | EXTERNAL LAB: CBC | Routin | 11/17/2017 | | Results for this | | | e | 11:35 AM | | procedure are in the | | | | PST | | results section. | + +--------+ + + + | HEPATIC FUNCTION | Routin | 11/17/2017 | | Results for this | | PANEL | e | 11:35 AM | | procedure are in the | | | | PST | | results section. | + +--------+ + + + documented in this encounter Results Vitamin D, Deficiency Screen (25-Hydroxy) (01/12/2018 9:50 AM PDT) + +-------+ + + + | Component | Value | Ref Range | Performed | Pathologist | | | | | At | Signature | + +-------+ + + + | Vit D, | 32 | 30 - 100 | EXTERNAL | | | 25-Hydroxy | | | LAB | | + +-------+ + + + + + | Specimen | + + | Blood specimen | | (specimen) | + + + +---------+ + + | Performing | Address | City/State/Zipcode | Phone Number | | Organization | | | | + +---------+ + + | EXTERNAL LAB | | | | + +---------+ + + Urinalysis, Microscopic Only (01/12/2018 9:50 AM PDT) + + + + + + | Component | Value | Ref Range | Performed | Pathologist | | | | | At | Signature | + + + + + + | Color | Yellow | | EXTERNAL | | | | | | LAB | | + + + + + + | Clarity, | Clear | | EXTERNAL | | | Urine | | | LAB | | + + + + + + | Specific | 1.011 | 1.005 - 1.030 | EXTERNAL | | | [place], | | | LAB | | | Urine | | | | | + + + + + + | Leukocyte | Negative | | EXTERNAL | | | [place], | | | LAB | | | Urine | | | | | + + + + + + | Nitrite, | Negative | | EXTERNAL | | | Urine | | | LAB | | + + + + + + | Urobilinoge | Normal | | EXTERNAL | | | n, Urine | | | LAB | | + + + + + + | Protein, | Negative | | EXTERNAL | | | Urine | | | LAB | | + + + + + + | pH, Urine | 7 | 5 - 9 | EXTERNAL | | | | | | LAB | | + + + + + + | Blood, | Negative | | EXTERNAL | | | Urine | | | LAB | | + + + + + + | Ketones | Negative | | EXTERNAL | | | | | | LAB | | + + + + + + | Bilirubin, | Negative | | EXTERNAL | | | Urine | | | LAB | | + + + + + + | Glucose, | Negative | | EXTERNAL | | | Urine | | | LAB | | + + + + + + + + | Specimen | + + | Urine specimen | | (specimen) | + + + +---------+ + + | Performing | Address | City/State/Zipcode | Phone Number | | Organization | | | | + +---------+ + + | EXTERNAL LAB | | | | + +---------+ + + Sedimentation rate, automated (01/12/2018 9:50 AM PDT) + +--------+ + + + | Component | Value | Ref Range | Performed | Pathologist | | | | | At | Signature | + +--------+ + + + | Sed Rate | 56 (A) | 0 - 15 | EXTERNAL | | | | | | LAB | | + +--------+ + + + + + | Specimen | + + | Blood specimen | | (specimen) | + + + +---------+ + + | Performing | Address | City/State/Zipcode | Phone Number | | Organization | | | | + +---------+ + + | EXTERNAL LAB | | | | + +---------+ + + External Lab: CBC (01/12/2018 9:50 AM PDT) + + + + + + | Component | Value | Ref Range | Performed | Pathologist | | | | | At | Signature | + + + + + + | WBC | 6.4 | 4.5 - 11.0 10 | EXTERNAL | | | | | | LAB | | + + + + + + | Non- | 4.09 (A) | 4.3 - 5.7 10 | EXTERNAL | | | Red Blood | | | LAB | | | Cells | | | | | | Counted | | | | | + + + + + + | Hemoglobin | 13.4 (A) | 13.5 - 18.0 | EXTERNAL | | | | | g/dL | LAB | | + + + + + + | Hematocrit, | 40 (A) | 41 - 50 % | EXTERNAL | | | POC | | | LAB | | + + + + + + | MCV | 97.9 | 81 - 99 fL | EXTERNAL | | | | | | LAB | | + + + + + + | MCH | 33 | 27 - 33 pg | EXTERNAL | | | | | | LAB | | + + + + + + | MCHC | 34 | 30 - 36 g/dL | EXTERNAL | | | | | | LAB | | + + + + + + | Platelet | 132 (A) | 140 - 440 K/ L | EXTERNAL | | | Count | | | LAB | | | Plasma | | | | | + + + + + + | RDW-CV | 19.6 (A) | 10.5 - 15.0 % | EXTERNAL | | | | | | LAB | | + + + + + + | MPV | | fL | EXTERNAL | | | | | | LAB | | + + + + + + | Differentia | | | EXTERNAL | | | l Type | | | LAB | | + + + + + + | % Segmented | | % | EXTERNAL | | | | | | LAB | | | Neutrophils | | | | | + + + + + + | % | | % | EXTERNAL | | | Lymphocytes | | | LAB | | + + + + + + | % Monocytes | | % | EXTERNAL | | | | | | LAB | | + + + + + + | % | | % | EXTERNAL | | | Eosinophils | | | LAB | | + + + + + + | % Basophils | | % | EXTERNAL | | | | | | LAB | | + + + + + + | Absolute | | / L | EXTERNAL | | | Segmented | | | LAB | | | Neutrophils | | | | | + + + + + + | Absolute | | / L | EXTERNAL | | | Lymphocytes | | | LAB | | + + + + + + | Absolute | | / L | EXTERNAL | | | Monocytes | | | LAB | | + + + + + + | Absolute | | / L | EXTERNAL | | | Eosinophils | | | LAB | | + + + + + + | Absolute | | / L | EXTERNAL | | | Basophils | | | LAB | | + + + + + + + + | Specimen | + + | Blood specimen | | (specimen) | + + + +---------+ + + | Performing | Address | City/State/Zipcode | Phone Number | | Organization | | | | + +---------+ + + | EXTERNAL LAB | | | | + +---------+ + + Uric Acid (01/12/2018 9:50 AM PDT) + +-------+ + + + | Component | Value | Ref Range | Performed | Pathologist | | | | | At | Signature | + +-------+ + + + | Uric Acid | 5.6 | 4.4 - 7.6 | EXTERNAL | | | | | | LAB | | + +-------+ + + + + + | Specimen | + + | Blood specimen | | (specimen) | + + + +---------+ + + | Performing | Address | City/State/Zipcode | Phone Number | | Organization | | | | + +---------+ + + | EXTERNAL LAB | | | | + +---------+ + + Hemoglobin A1C (01/12/2018 9:50 AM PDT) + +-------+ + + + | Component | Value | Ref Range | Performed | Pathologist | | | | | At | Signature | + +-------+ + + + | Hemoglobin | 6.2 | % | EXTERNAL | | | A1c | | | LAB | | + +-------+ + + + + + | Specimen | + + | Blood specimen | | (specimen) | + + + +---------+ + + | Performing | Address | City/State/Zipcode | Phone Number | | Organization | | | | + +---------+ + + | EXTERNAL LAB | | | | + +---------+ + + Folate (01/12/2018 9:50 AM PDT) + +-------+ + + + | Component | Value | Ref Range | Performed | Pathologist | | | | | At | Signature | + +-------+ + + + | Folate | >20.0 | | EXTERNAL | | | | | | LAB | | + +-------+ + + + + + | Specimen | + + | Blood specimen | | (specimen) | + + + +---------+ + + | Performing | Address | City/State/Zipcode | Phone Number | | Organization | | | | + +---------+ + + | EXTERNAL LAB | | | | + +---------+ + + Vitamin B-12 (01/12/2018 9:50 AM PDT) + +-------+ + + + | Component | Value | Ref Range | Performed | Pathologist | | | | | At | Signature | + +-------+ + + + | VITAMIN | 521.1 | 232 - 1,245 | EXTERNAL | | | B-12 | | | LAB | | + +-------+ + + + + + | Specimen | + + | Blood specimen | | (specimen) | + + + +---------+ + + | Performing | Address | City/State/Zipcode | Phone Number | | Organization | | | | + +---------+ + + | EXTERNAL LAB | | | | + +---------+ + + Lipid Panel (01/12/2018 9:50 AM PDT) + +-------+ + + + | Component | Value | Ref Range | Performed | Pathologist | | | | | At | Signature | + +-------+ + + + | Cholesterol | 172 | mg/dL | EXTERNAL | | | | | | LAB | | + +-------+ + + + | Triglycerid | 142 | 30 - 150 mg/dL | EXTERNAL | | | es | | | LAB | | + +-------+ + + + | HDL | 40.8 | mg/dl | EXTERNAL | | | | | | LAB | | + +-------+ + + + | LDL, | 101 | mg/dL | EXTERNAL | | | Calculated | | | LAB | | + +-------+ + + + | LDl/HDL | | | EXTERNAL | | | Ratio | | | LAB | | + +-------+ + + + | Chol/HDL | 4.2 | | EXTERNAL | | | Ratio | | | LAB | | + +-------+ + + + | VLDL | 29 | 4 - 40 mg/dL | EXTERNAL | | | | | | LAB | | + +-------+ + + + | Non HDL | 130 | | EXTERNAL | | | Chol. | | | LAB | | | (LDL+VLDL) | | | | | + +-------+ + + + + + | Specimen | + + | Blood specimen | | (specimen) | + + + +---------+ + + | Performing | Address | City/State/Zipcode | Phone Number | | Organization | | | | + +---------+ + + | EXTERNAL LAB | | | | + +---------+ + + Comprehensive Metabolic Panel (01/12/2018 9:50 AM PDT) + + + + + + | Component | Value | Ref Range | Performed | Pathologist | | | | | At | Signature | + + + + + + | Glucose, | 92 | 70 - 100 mg/dL | EXTERNAL | | | Fasting | | | LAB | | + + + + + + | BUN | 42 (A) | 6 - 23 mg/dL | EXTERNAL | | | | | | LAB | | + + + + + + | Creatinine | 2.10 (A) | 0.7 - 1.18 | EXTERNAL | | | | | mg/dL | LAB | | + + + + + + | BUN/Creatin | 20 | 6.0 - 28.6 | EXTERNAL | | | ine Ratio | | | LAB | | + + + + + + | Calcium | 9.2 | 8.4 - 10.2 | EXTERNAL | | | | | mg/dL | LAB | | + + + + + + | Protein, | 6.8 | 6.0 - 8.0 g/dL | EXTERNAL | | | Total | | | LAB | | + + + + + + | Albumin | 4.1 | 3.5 - 5.0 | EXTERNAL | | | | | | LAB | | + + + + + + | Globulin | 2.7 | 1.8 - 3.5 | EXTERNAL | | | | | | LAB | | + + + + + + | A/G Ratio | 1.5 | 1.1 - 2.4 | EXTERNAL | | | | | | LAB | | + + + + + + | Bilirubin | 1.3 (A) | 0.0 - 1.2 mg/dL | EXTERNAL | | | Total | | | LAB | | + + + + + + | ALP, | 38 | 31 - 120 | EXTERNAL | | | External | | | LAB | | + + + + + + | ALT | 35 | 7 - 52 U/L | EXTERNAL | | | | | | LAB | | + + + + + + | AST | 35 | 13 - 39 U/L | EXTERNAL | | | | | | LAB | | + + + + + + | Na | 141 | 132 - 143 | EXTERNAL | | | | | mmol/L | LAB | | + + + + + + | K | 4.1 | 3.6 - 5.1 | EXTERNAL | | | | | mmol/L | LAB | | + + + + + + | Cl | 95 | 95 - 112 mmol/L | EXTERNAL | | | | | | LAB | | + + + + + + | CO2 | 32 (A) | 19 - 31 mmol/L | EXTERNAL | | | | | | LAB | | + + + + + + | Anion Gap | 18.1 | 7 - 21 mmol/L | EXTERNAL | | | | | | LAB | | + + + + + + | Estimated | 31 (A) | 60 mg/dL | EXTERNAL | | | GFR | | | LAB | | + [...] + +---------+ + + External Lab: CBC (11/17/2017 11:35 AM PST) + + + + + + | Component | Value | Ref Range | Performed | Pathologist | | | | | At | Signature | + + + + + + | WBC | 7.0 | 4.5 - 11.0 10 | EXTERNAL | | | | | | LAB | | + + + + + + | Non- | 4.16 (A) | 4.3 - 5.7 10 | EXTERNAL | | | Red Blood | | | LAB | | | Cells | | | | | | Counted | | | | | + + + + + + | Hemoglobin | 13.5 | 13.5 - 18.0 | EXTERNAL | | | | | g/dL | LAB | | + + + + + + | Hematocrit, | 40.2 (A) | 41 - 50 % | EXTERNAL | | | POC | | | LAB | | + + + + + + | MCV | 96.6 | 81 - 99 fL | EXTERNAL | | | | | | LAB | | + + + + + + | MCH | 32 | 27 - 33 pg | EXTERNAL | | | | | | LAB | | + + + + + + | MCHC | 34 | 30 - 36 g/dL | EXTERNAL | | | | | | LAB | | + + + + + + | Platelet | 158 | 140 - 440 K/ L | EXTERNAL | | | Count | | | LAB | | | Plasma | | | | | + + + + + + | RDW-CV | 18.8 (A) | 10.5 - 15.0 % | EXTERNAL | | | | | | LAB | | + + + + + + | MPV | | fL | EXTERNAL | | | | | | LAB | | + + + + + + | Differentia | | | EXTERNAL | | | l Type | | | LAB | | + + + + + + | % Segmented | | % | EXTERNAL | | | | | | LAB | | | Neutrophils | | | | | + + + + + + | % | | % | EXTERNAL | | | Lymphocytes | | | LAB | | + + + + + + | % Monocytes | | % | EXTERNAL | | | | | | LAB | | + + + + + + | % | | % | EXTERNAL | | | Eosinophils | | | LAB | | + + + + + + | % Basophils | | % | EXTERNAL | | | | | | LAB | | + + + + + + | Absolute | | / L | EXTERNAL | | | Segmented | | | LAB | | | Neutrophils | | | | | + + + + + + | Absolute | | / L | EXTERNAL | | | Lymphocytes | | | LAB | | + + + + + + | Absolute | | / L | EXTERNAL | | | Monocytes | | | LAB | | + + + + + + | Absolute | | / L | EXTERNAL | | | Eosinophils | | | LAB | | + + + + + + | Absolute | | / L | EXTERNAL | | | Basophils | | | LAB | | + + + + + + + + | Specimen | + + | Blood specimen | | (specimen) | + + + +---------+ + + | Performing | Address | City/State/Zipcode | Phone Number | | Organization | | | | + +---------+ + + | EXTERNAL LAB | | | | + +---------+ + + Hepatic Function Panel (11/17/2017 11:35 AM PST) + +---------+ + + + | Component | Value | Ref Range | Performed | Pathologist | | | | | At | Signature | + +---------+ + + + | Protein, | 6.6 | 6.0 - 8.0 g/dL | EXTERNAL | | | Total | | | LAB | | + +---------+ + + + | Albumin | 4.1 | 3.5 - 5.0 | EXTERNAL | | | | | | LAB | | + +---------+ + + + | Bilirubin | 0.9 | 0.0 - 1.2 mg/dL | EXTERNAL | | | Total | | | LAB | | + +---------+ + + + | Bilirubin | 0.2 (A) | 0.0 - 0.1 mg/dL | EXTERNAL | | | Direct | | | LAB | | + +---------+ + + + | ALP, | 35 | 31 - 120 | EXTERNAL | | | External | | | LAB | | + +---------+ + + + | AST | 29 | 13 - 39 U/L | EXTERNAL | | | | | | LAB | | + +---------+ + + + | ALT | 29 | 7 - 52 U/L | EXTERNAL | | | | | | LAB | | + +---------+ + + + | A/G Ratio | 1.6 | 1.1 - 2.4 | EXTERNAL | | | | | | LAB | | + +---------+ + + + | Globulin, | 2.5 | 1.8 - 3.5 | EXTERNAL | | | Total | | | LAB | | + +---------+ + + + + + | Specimen [...]
--- OUTSIDE RECORDS SUMMARY | ~2020-08-01 | XMS | Encounter Summary ---
Demographics + + + | Address | [address] | | | [place] [address] | + + + | Home Phone | | + + + | Preferred Language | Unknown | + + + | Marital Status | Unknown | + + + | Restoration Affiliation | PRO | + + + | Race | White | + + + | Ethnic Group | Not or | + + + Author + + + | Author | [facility] | + + + | Organization | [facility] | + + + | Address | Unknown | + + + | Phone | Unavailable | + + + Support + + +---------+ + | Name | Relationship | Address | Phone | + + +---------+ + | Beth Mas | ECON | Unknown | | + + +---------+ + Care Team Providers + +------+ + | Care Property Disposal Manager Name | Role | Phone | + +------+ + PCP | Unavailable | + +------+ + Encounter Details +--------+ + + + + | Date | Type | Department | Care Team | Description | +--------+ + + + + | 07/09/ | Hospital | Dermatopathology | | | | 2015 | Encounter | [address] | | | | | | Mailcode: [id number] | | | | | | [facility] | | | | | | and Healing, | | | | | | [address] | | | | | | Floor [place], [place] | | | | | | [address] | | | | | | [phone] | | | +--------+ + + + [...] as of this encounter Plan of Treatment Not on filedocumented as of this encounter Procedures + +--------+ + + + | Procedure Name | Priori | Date/Time | Associated Diagnosis | Comments | | | ty | | | | + +--------+ + + + | DERMATOPATHOLOGY(CON | Routin | 07/09/2016 | | Results for this | | SULT) | e | | | procedure are in the | | | | | | results section. | + +--------+ + + + documented in this encounter Results DERMATOPATHOLOGY(CONSULT) (07/09/2016) + + + + + + | Component | Value | Ref Range | Performed | Pathologist | | | | | At | Signature | + + + + + + | DERMATOPATH | SOURCE OF SPECIMEN:B | | [facility] | | | (CONSULT) | Right lateral mamammary | | DERMATOPATH | | | | area biopsy | | [facility] | | | | CLINICAL | | | | | | DESCRIPTION:Clinically a | | | | | | pink papule; infiltrate | | | | | | with eos. ? Bug | | | | | | bite.Materials Received: | | | | | | [id number] 1 | | | | | | slide Dear | | | | | | [place]: In | | | | | | Duane Clark' right | | | | | | lateral mammary area | | | | | | biopsy, there is a | | | | | | mildlyhyperplastic | | | | | | epidermis, within and | | | | | | beneath which is a | | | | | | perivascular | | | | | | andinterstitial | | | | | | infiltrate of | | | | | | lymphocytes and | | | | | | eosinophils, a few of | | | | | | whichextend and involve | | | | | | the overlying epidermis. 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 I | | | | | | am in agreement that | | | | | | the numbers of | | | | | | eosinophils suggest the | | | | | | possibilityof ARTHROPOD | | | | | | BITE ACTION. An inflamed | | | | | | SEBORRHEIC KERATOSIS is | | | | | | an outlyingpossibility. | | | | | | Thank you for | | | | | | referring this | | | | | | consultation.Materials | | | | | | Returned: | | | | | | [id number] x 1 | | | | | | slide | | | | | | KPW:mm07/16/16 My | | | | | | electronic signature | | | | | | indicates that I have | | | | | | personally reviewed | | | | | | alldiagnostic slides, | | | | | | the gross and/or | | | | | | microscopic portion of | | | | | | thisreport and | | | | | | formulated the final | | | | | | diagnosis. | | | | | | Rendering Diagnostician: | | | | | | Jeremias Romero | | | | | | ArelyPathologistElectroni | | | | | | melida Signed 07/16/2016 | | | | | | 4:36PM | | | | + + + + + + + + | Specimen | + + | | + + + + + | Narrative | Performed At | + + + | | | + + + + + + + + | Performing | Address | City/State/Zipcode | Phone Number | | Organization | | | | + + + + + | [facility] | [id number] | [place] [address] | | | DERMATOPATHOLOGY | [address] | | | + + + + + | [facility] | [id number] | [place] [address] | | | DERMATOPATHOLOGY | [address] | | | + + + + + documented in this encounter Visit Diagnoses Not on filedocumented in this encounter"
--- OUTSIDE RECORDS SUMMARY | ~2020-08-01 | XMS | Clinical Summary ---
Demographics + + + | Address | [address] | | | [place] [address] | + + + | Home Phone | | + + + | Preferred Language | Unknown | + + + | Marital Status | | + + + | Alevism Affiliation | 1077 | + + + | Race | White | + + + | Ethnic Group | Not or | + + + Author + + + | Author | [facility] | | | and [place] | + + + | Organization | [facility] | | | [...] Team Providers + +------+ + | Care Lawn Care Specialist Name | Role | Phone | + +------+ + | Gilberto Estrada | PCP | | | MD | | | + +------+ + Allergies + + + + + + | Active Allergy | Reactions | Severity | Noted | Comments | | | | | Date | | + + + + + + | Omeprazole | Other (See Comments) | High | 05/19/20 | | | | | | 19 | | + + + + + + | Sulfa Antibiotics | Rash, Hives | High | 09/03/20 | | | | | | 13 | | + + + + + + Medications + + + +---------+------+------+-------+ | Medication | Sig | Dispensed | Refills | Star | End | Statu | | | | | | t | Date | s | | | | | | Date | | | + + + +---------+------+------+-------+ | cephalexin | Take 500 mg by mouth | | 0 | | | Activ | | (KEFLEX) 500 mg | 2 times daily. | | | | | e | | capsule | | | | | | | + + + +---------+------+------+-------+ | | Take 1 tablet by | | 0 | 10/29 | | Activ | | acetaminophen-codein | mouth Twice daily | | | 11/15 | | e | | e (TYLENOL #3) | as needed for Pain . | | | 19 | | | | 300-30 MG per tablet | | | | | | | + + + +---------+------+------+-------+ | SITagliptin | Take 50 mg by mouth | | 0 | | | Activ | | (JANUVIA) 50 MG | Daily. | | | | | e | | tablet | | | | | | | + + + +---------+------+------+-------+ | hydroxychloroquine | Take 200 mg by mouth | | 0 | | | Activ | | (PLAQUENIL) 200 mg | Daily. | | | | | e | | tablet | | | | | | | + + + +---------+------+------+-------+ | cholecalciferol | Take 50 mcg by mouth | | 0 | | | Activ | | (VITAMIN D-3) 50 mcg | Daily. | | | | | e | | (2,000 units) | | | | | | | | tablet | | | | | | | + + + +---------+------+------+-------+ | folic acid | Take 400 mcg by | | 0 | | | Activ | | (FOLVITE) 400 MCG | mouth Daily. | | | | | e | | tablet | | | | | | | + + + +---------+------+------+-------+ | magnesium oxide | Take 400 mg by mouth | | 0 | | | Activ | | (MAG-OX) 400 mg | Daily. | | | | | e | | tablet | | | | | | | + + + +---------+------+------+-------+ | fish oil 1,000 mg | Take 1,000 mg by | | 0 | | | Activ | | capsule | mouth Daily. | | | | | e | + + + +---------+------+------+-------+ | Multiple | Take 1 tablet by | | 0 | | | Activ | | Vitamins-Minerals | mouth Daily. | | | | | e | | (EYE | | | | | | | | MULTIVITAMIN/LUTEIN) | | | | | | | | TABS | | | | | | | + + + +---------+------+------+-------+ | glipiZIDE | Take 1 tablet by | 30 | 1 | 09/2 | | Activ | | (GLUCOTROL) 5 mg | mouth every morning | tablet | | 9/20 | | e | | tablet | (before breakfast). | | | 20 | | | + + + +---------+------+------+-------+ | torsemide | Take 1 tablet by | 30 | 1 | 09/2 | | Activ | | (DEMADEX) 20 mg | mouth Daily. | tablet | | 9/20 | | e | | tablet | | | | 20 | | | + + + +---------+------+------+-------+ | warfarin | Take 1 tablet by | 30 | 1 | 09/2 | | Activ | | (COUMADIN) 2 mg | mouth Daily. | tablet | | 9/20 | | e | | tablet | | | | 20 | | | + + + +---------+------+------+-------+ | aspirin 81 mg | Chew and swallow 1 | 30 | 1 | 09/2 | | Activ | | chewable tablet | tablet Daily. | tablet | | 9/20 | | e | | | | | | 20 | | | + + + +---------+------+------+-------+ | atorvaSTATin | Take 1 tablet by | 90 | 1 | 09/2 | | Activ | | (LIPITOR) 20 mg | mouth nightly. | tablet | | 9/20 | | e | | tablet | | | | 20 | | | + + + +---------+------+------+-------+ | metoprolol | Take 1 tablet by | 90 | 1 | 09/2 | | Activ | | succinate | mouth Daily. | tablet | | 9/20 | | e | | (TOPROL-XL) 50 mg 24 | | | | 20 | | | | hr tablet | | | | | | | + + + +---------+------+------+-------+ | | Take 1 tablet by | 60 | 0 | /2 | | Activ | | sacubitril-valsartan | mouth 2 times daily. | tablet | | 07/16 | | e | | (ENTRESTO) 24-26 mg | | | | 20 | | | | per tablet | | | | | | | + + + +---------+------+------+-------+ | | Take 1 tablet by | | 0 | | 06/28 | Disco | | acetaminophen-codein | mouth every 4 hours | | | | 3/20 | ntinu | | e (TYLENOL #2) | as needed for Pain. | | | | 20 | ed | | 300-15 MG per tablet | | | | | | (Dupl | | | | | | | | icate | | | | | | | | | | | | | | | | Entry | | | | | | | | (no | | | | | | | | Cance | | | | | | | | l Rx | | | | | | | | msg)) | + + + +---------+------+------+-------+ | allopurinol | Take 300 mg by mouth | | 0 | | 09/2 | Disco | | (ZYLOPRIM) 300 mg | Daily. | | | | 3/20 | ntinu | | tablet | | | | | 20 | ed | | | | | | | | (Ther | | | | | | | | apy | | | | | | | | compl | | | | | | | | eted) | + + + +---------+------+------+-------+ | cholecalciferol | Take 1,000 Units by | | 0 | | 09/2 | Disco | | (VITAMIN D-3) 1000 | mouth Daily. | | | | 3/20 | ntinu | | units TABS | | | | | 20 | ed | | | | | | | | (Ther | | | | | | | | apy | | | | | | | | compl | | | | | | | | eted) | + + + +---------+------+------+-------+ | folic acid | Take 400 mcg by | | 0 | | /2 | Disco | | (FOLVITE) 400 MCG | mouth Daily. | | | | 3/20 | ntinu | | tablet | | | | | 20 | ed | | | | | | | | (Ther | | | | | | | | apy | | | | | | | | compl | | | | | | | | eted) | + + + +---------+------+------+-------+ | glimepiride | Take 4 mg by mouth | | 0 | | 09/2 | Disco | | (AMARYL) 4 mg tablet | every morning | | | | 3/20 | ntinu | | | (before breakfast). | | | | 20 | ed | | | | | | | | (Ther | | | | | | | | apy | | | | | | | | compl | | | | | | | | eted) | + + + +---------+------+------+-------+ | isosorbide | Take 60 mg by mouth | | 0 | | 09/2 | Disco | | mononitrate (IMDUR) | Daily. | | | | 3/20 | ntinu | | 60 mg ER tablet | | | | | 20 | ed | | | | | | | | (Ther | | | | | | | | apy | | | | | | | | compl | | | | | | | | eted) | + + + +---------+------+------+-------+ | losartan (COZAAR) | Take 50 mg by mouth | | 0 | | 09/2 | Disco | | 50 mg tablet | Daily. | | | | 3/20 | ntinu | | | | | | | 20 | ed | | | | | | | | (Ther | | | | | | | | apy | | | | | | | | compl | | | | | | | | eted) | + + + +---------+------+------+-------+ | metFORMIN | Take 500 mg by mouth | | 0 | | 09/2 | Disco | | (GLUCOPHAGE) 500 mg | Daily. | | | | 3/20 | ntinu | | tablet | | | | | 20 | ed | | | | | | | | (Ther | | | | | | | | apy | | | | | | | | compl | | | | | | | | eted) | + + + +---------+------+------+-------+ | metOLazone | Take 2.5 mg by mouth | | 0 | | /2 | Disco | | (ZAROXOLYN) 2.5 mg | Daily. | | | | 3/20 | ntinu | | tablet | | | | | 20 | ed | | | | | | | | (Ther | | | | | | | | apy | | | | | | | | compl | | | | | | | | eted) | + + + +---------+------+------+-------+ | Multiple | Take 1 tablet by | | 0 | | 09/2 | Disco | | Vitamins-Minerals | mouth Daily. | | | | 3/20 | ntinu | | (ADULT MULTIVITAMIN | | | | | 20 | ed | | WITH MINERALS/IRON) | | | | | | (Ther | | TABS | | | | | | apy | | | | | | | | compl | | | | | | | | eted) | + + + +---------+------+------+-------+ | | Apply topically | | 0 | | 09/2 | Disco | | nystatin-triamcinolo | Twice daily as | | | | 3/20 | ntinu | | ne (MYCOLOG II) | needed. | | | | 20 | ed | | ointment | | | | | | (Ther | | | | | | | | apy | | | | | | | | compl | | | | | | | | eted) | + + + +---------+------+------+-------+ | fish oil 1,000 mg | Take 1,200 mg by | | 0 | | 09/2 | Disco | | capsule | mouth 2 times daily. | | | | 3/20 | ntinu | | | | | | | 20 | ed | | | | | | | | (Ther | | | | | | | | apy | | | | | | | | compl | | | | | | | | eted) | + + + +---------+------+------+-------+ | simvastatin | Take 40 mg by mouth | | 0 | | / | Disco | | (ZOCOR) 40 mg tablet | nightly. | | | | 3/20 | ntinu | | | | | | | 20 | ed | | | | | | | | (Ther | | | | | | | | apy | | | | | | | | compl | | | | | | | | eted) | + + + +---------+------+------+-------+ | warfarin | Take 2.5 mg by mouth | | 0 | | 06/28 | Disco | | (COUMADIN) 2.5 mg | Daily. | | | | 3/20 | ntinu | | tablet | | | | | 20 | ed | | | | | | | | (Ther | | | | | | | | apy | | | | | | | | compl | | | | | | | | eted) | + + + +---------+------+------+-------+ | carvedilol (COREG) | Take 6.25 mg by | | 0 | | 06/28 | Disco | | 6.25 mg tablet | mouth 2 times daily | | | | 3/20 | ntinu | | | (with breakfast & | | | | 20 | ed | | | dinner). | | | | | (Ther | | | | | | | | apy | | | | | | | | compl | | | | | | | | eted) | + + + +---------+------+------+-------+ | furosemide (LASIX) | Take 40 mg by mouth | | 0 | | 09/2 | Disco | | 40 mg tablet | 2 times daily. | | | | 3/20 | ntinu | | | | | | | 20 | ed | | | | | | | | (Ther | | | | | | | | apy | | | | | | | | compl | | | | | | | | eted) | + + + +---------+------+------+-------+ | magnesium oxide | Take 400 mg by mouth | | 0 | | 09/2 | Disco | | (MAG-OX) 400 mg | Daily. | | | | 3/20 | ntinu | | tablet | | | | | 20 | ed | | | | | | | | (Ther | | | | | | | | apy | | | | | | | | compl | | | | | | | | eted) | + + + +---------+------+------+-------+ | potassium chloride | Take 20 mEq by mouth | | 0 | | 09/2 | Disco | | (K-DUR) 20 mEq ER | 2 times daily. | | | | 3/20 | ntinu | | tablet | | | | | 20 | ed | | | | | | | | (Ther | | | | | | | | apy | | | | | | | | compl | | | | | | | | eted) | + + + +---------+------+------+-------+ | | Take 1 tablet by | | 0 | | 09/2 | Disco | | acetaminophen-codein | mouth every 4 hours | | | | 3/20 | ntinu | | e (TYLENOL #3) | as needed for Pain. | | | | 20 | ed | | 300-30 mg per tablet | | | | | | (Ther | | | | | | | | apy | | | | | | | | compl | | | | | | | | eted) | + + + +---------+------+------+-------+ | | acetaminophen 300 | | 0 | 08/2 | 09/2 | Disco | | acetaminophen-codein | mg-codeine 30 mg | | | 1/20 | 3/20 | ntinu | | e (TYLENOL #3) | tablet Take 1 tablet | | | 18 | 20 | ed | | 300-30 mg per tablet | every 6 hours by | | | | | (Ther | | | oral route. not on | | | | | apy | | | | | | | | compl | | | | | | | | eted) | + + + +---------+------+------+-------+ | | acetaminophen/codein | | 0 | | 09/2 | Disco | | acetaminophen-codein | e #3 300-30 mgtabs | | | | 3/20 | ntinu | | e (TYLENOL #3) | | | | | 20 | ed | | 300-30 mg per tablet | | | | | | (Ther | | | | | | | | apy | | | | | | | | compl | | | | | | | | eted) | + + + +---------+------+------+-------+ | | acetaminophen/codein | | 0 | | 09/2 | Disco | | acetaminophen-codein | e 300-30 mg tabs | | | | 3/20 | ntinu | | e (TYLENOL #3) | | | | | 20 | ed | | 300-30 MG per tablet | | | | | | (Ther | | | | | | | | apy | | | | | | | | compl | | | | | | | | eted) | + + + +---------+------+------+-------+ | | advair diskus 250-50 | | 0 | | 09/2 | Disco | | fluticasone-salmeter | mcg/dose aepb | | | | 3/20 | ntinu | | ol (ADVAIR DISKUS) | | | | | 20 | ed | | 250-50 mcg/puff | | | | | | (Ther | | diskus inhaler | | | | | | apy | | | | | | | | compl | | | | | | | | eted) | + + + +---------+------+------+-------+ | allopurinol | allopurinol 300 mg | | 0 | | 06/28 | Disco | | (ZYLOPRIM) 300 mg | tabs | | | | 01/13 | ntinu | | tablet | | | | | 20 | ed | | | | | | | | (Ther | | | | | | | | apy | | | | | | | | compl | | | | | | | | eted) | + + + +---------+------+------+-------+ | allopurinol | | | 0 | 08/27 | 06/28 | Disco | | (ZYLOPRIM) 300 mg | | | | 01/13 | 320 | ntinu | | tablet | | | | 18 | 20 | ed | | | | | | | | (Dupl | | | | | | | | icate | | | | | | | | | | | | | | | | Entry | | | | | | | | (no | | | | | | | | Cance | | | | | | | | l Rx | | | | | | | | msg)) | + + + +---------+------+------+-------+ | ALLOPURINOL PO | Take by mouth. | | 0 | | 09/2 | Disco | | | | | | | 3/20 | ntinu | | | | | | | 20 | ed | | | | | | | | (Ther | | | | | | | | apy | | | | | | | | compl | | | | | | | | eted) | + + + +---------+------+------+-------+ | amoxicillin | amoxicillin 500 mg | | 0 | | 09/2 | Disco | | (AMOXIL) 500 MG | caps | | | | 3/20 | ntinu | | capsule | | | | | 20 | ed | | | | | | | | (Ther | | | | | | | | apy | | | | | | | | compl | | | | | | | | eted) | + + + +---------+------+------+-------+ | amoxicillin | | | 0 | 12/0 | 09/2 | Disco | | (AMOXIL) 500 MG | | | | 3/20 | 3/20 | ntinu | | capsule | | | | 18 | 20 | ed | | | | | | | | (Ther | | | | | | | | apy | | | | | | | | compl | | | | | | | | eted) | + + + +---------+------+------+-------+ | | amoxicillin/clavulan | | 0 | | 09/2 | Disco | | amoxicillin-clavulan | ate potassium | | | | 20 | ntinu | | ate (AUGMENTIN) | 875-125 mg tabs not | | | | 20 | ed | | 875-125 mg per | on | | | | | (Ther | | tablet | | | | | | apy | | | | | | | | compl | | | | | | | | eted) | + + + +---------+------+------+-------+ | azithromycin | Take 250 mg by mouth | | 0 | 09/0 | 09/2 | Disco | | (ZITHROMAX) 250 mg | Daily 4 days only. | | | 02/13 | 07/16 | ntinu | | tablet | | | | 20 | 20 | ed | + + + +---------+------+------+-------+ | carvedilol (COREG) | carvedilol 12.5 mg | | 0 | | 09/2 | Disco | | 12.5 mg tablet | tabs | | | | 3/20 | ntinu | | | | | | | 20 | ed | | | | | | | | (Ther | | | | | | | | apy | | | | | | | | compl | | | | | | | | eted) | + + + +---------+------+------+-------+ | carvedilol (COREG) | carvedilol 3.125 mg | | 0 | | /2 | Disco | | 3.125 mg tablet | tabs | | | | 3/20 | ntinu | | | | | | | 20 | ed | | | | | | | | (Ther | | | | | | | | apy | | | | | | | | compl | | | | | | | | eted) | + + + +---------+------+------+-------+ | UNABLE TO FIND | cefazolin sodium 1 | | 0 | | /2 | Disco | | | gm solr | | | | 3/20 | ntinu | | | | | | | 20 | ed | | | | | | | | (Ther | | | | | | | | apy | | | | | | | | compl | | | | | | | | eted) | + + + +---------+------+------+-------+ | UNABLE TO FIND | | | 0 | 09/1 | 09/2 | Disco | | | | | | 3/20 | 3/20 | ntinu | | | | | | 18 | 20 | ed | | | | | | | | (Ther | | | | | | | | apy | | | | | | | | compl | | | | | | | | eted) | + + + +---------+------+------+-------+ | UNABLE TO FIND | cefazolin sodium 10 | | 0 | | 09/2 | Disco | | | gm solr | | | | 3/20 | ntinu | | | | | | | 20 | ed | | | | | | | | (Ther | | | | | | | | apy | | | | | | | | compl | | | | | | | | eted) | + + + +---------+------+------+-------+ | UNABLE TO FIND | | | 0 | 09/2 | 09/2 | Disco | | | | | | 0/20 | 3/20 | ntinu | | | | | | 18 | 20 | ed | | | | | | | | (Ther | | | | | | | | apy | | | | | | | | compl | | | | | | | | eted) | + + + +---------+------+------+-------+ | cephalexin | cephalexin 500 mg | | 0 | | 09/2 | Disco | | (KEFLEX) 500 mg | caps | | | | 3/20 | ntinu | | capsule | | | | | 20 | ed | | | | | | | | (Ther | | | | | | | | apy | | | | | | | | compl | | | | | | | | eted) | + + + +---------+------+------+-------+ | cephalexin | | | 0 | 03/1 | 09/2 | Disco | | (KEFLEX) 500 mg | | | | 8/20 | 3/20 | ntinu | | capsule | | | | 19 | 20 | ed | | | | | | | | (Ther | | | | | | | | apy | | | | | | | | compl | | | | | | | | eted) | + + + +---------+------+------+-------+ | ciprofloxacin | ciprofloxacin hcl | | 0 | | 09/2 | Disco | | (CIPRO) 250 mg | 250 mg tabs | | | | 3/20 | ntinu | | tablet | | | | | 20 | ed | | | | | | | | (Ther | | | | | | | | apy | | | | | | | | compl | | | | | | | | eted) | + + + +---------+------+------+-------+ | ciprofloxacin | | | 0 | 09/2 | 09/2 | Disco | | (CIPRO) 250 mg | | | | 4/20 | 3/20 | ntinu | | tablet | | | | 18 | 20 | ed | | | | | | | | (Ther | | | | | | | | apy | | | | | | | | compl | | | | | | | | eted) | + + + +---------+------+------+-------+ | | Inhale into the | | 0 | | 09/2 | Disco | | fluticasone-salmeter | lungs. | | | | 3/20 | ntinu | | ol (ADVAIR, WIXELA | | | | | 20 | ed | | INHUB) 250-50 | | | | | | (Dupl | | mcg/puff diskus | | | | | | icate | | inhaler | | | | | | | | | | | | | | Entry | | | | | | | | (no | | | | | | | | Cance | | | | | | | | l Rx | | | | | | | | msg)) | + + + +---------+------+------+-------+ | furosemide (LASIX) | furosemide 20 mg | | 0 | | 09/2 | Disco | | 20 mg tablet | tabs | | | | 3/20 | ntinu | | | | | | | 20 | ed | | | | | | | | (Ther | | | | | | | | apy | | | | | | | | compl | | | | | | | | eted) | + + + +---------+------+------+-------+ | glimepiride | glimepiride 4 mg | | 0 | | 09/2 | Disco | | (AMARYL) 4 mg tablet | tabs | | | | 3/20 | ntinu | | | | | | | 20 | ed | | | | | | | | (Ther | | | | | | | | apy | | | | | | | | compl | | | | | | | | eted) | + + + +---------+------+------+-------+ | glipiZIDE | Take 20 mg by mouth | | 0 | | 09/2 | Disco | | (GLUCOTROL) 10 MG | 2 times daily | | | | 9/20 | ntinu | | tablet | (before meals) . | | | | 20 | ed | | | | | | | | (Reor | | | | | | | | alie | | | | | | | | (no | | | | | | | | Cance | | | | | | | | l Rx | | | | | | | | msg)) | + + + +---------+------+------+-------+ | glipiZIDE | | | 0 | 03/2 | 09/2 | Disco | | (GLUCOTROL) 10 MG | | | | 3/20 | 3/20 | ntinu | | tablet | | | | 19 | 20 | ed | | | | | | | | (Ther | | | | | | | | apy | | | | | | | | compl | | | | | | | | eted) | + + + +---------+------+------+-------+ | glipiZIDE | glipizide 5 mg tabs | | 0 | | 09/2 | Disco | | (GLUCOTROL) 5 mg | | | | | 3/20 | ntinu | | tablet | | | | | 20 | ed | | | | | | | | (Ther | | | | | | | | apy | | | | | | | | compl | | | | | | | | eted) | + + + +---------+------+------+-------+ | glipiZIDE | | | 0 | 10/1 | 09/2 | Disco | | (GLUCOTROL) 5 mg | | | | 0/20 | 3/20 | ntinu | | tablet | | | | 18 | 20 | ed | | | | | | | | (Ther | | | | | | | | apy | | | | | | | | compl | | | | | | | | eted) | + + + +---------+------+------+-------+ | glyBURIDE | glyburide 2.5 mg | | 0 | | 09/2 | Disco | | (DIABETA) 2.5 mg | tabs | | | | 3/20 | ntinu | | tablet | | | | | 20 | ed | | | | | | | | (Ther | | | | | | | | apy | | | | | | | | compl | | | | | | | | eted) | + + + +---------+------+------+-------+ | Multiple | ICaps AREDS | | 0 | | 09/2 | Disco | | Vitamins-Minerals | | | | | 3/20 | ntinu | | (ICAPS AREDS 2 PO) | | | | | 20 | ed | | | | | | | | (Ther | | | | | | | | apy | | | | | | | | compl | | | | | | | | eted) | + + + +---------+------+------+-------+ | isosorbide | isosorbide | | 0 | | 09/2 | Disco | | mononitrate (IMDUR) | mononitrate er 30 mg | | | | 3/20 | ntinu | | 30 mg ER tablet | tb24 | | | | 20 | ed | | | | | | | | (Ther | | | | | | | | apy | | | | | | | | compl | | | | | | | | eted) | + + + +---------+------+------+-------+ | isosorbide | isosorbide | | 0 | | 09/2 | Disco | | mononitrate 60 mg ER | mononitrate er 60 mg | | | | 3/20 | ntinu | | tablet | tb24 | | | | 20 | ed | | | | | | | | (Ther | | | | | | | | apy | | | | | | | | compl | | | | | | | | eted) | + + + +---------+------+------+-------+ | isosorbide | | | 0 | 09/2 | 09/2 | Disco | | mononitrate 60 mg ER | | | | 07/16 | 01/13 | ntinu | | tablet | | | | 18 | 20 | ed | | | | | | | | (Ther | | | | | | | | apy | | | | | | | | compl | | | | | | | | eted) | + + + +---------+------+------+-------+ | losartan (COZAAR) | losartan potassium | | 0 | | 06/28 | Disco | | 50 mg tablet | 50 mg tabs | | | | 01/13 | ntinu | | | | | | | 20 | ed | | | | | | | | (Ther | | | | | | | | apy | | | | | | | | compl | | | | | | | | eted) | + + + +---------+------+------+-------+ | losartan (COZAAR) | | | 0 | 08/27 | 06/28 | Disco | | 50 mg tablet | | | | 01/13 | 01/13 | ntinu | | | | | | 18 | 20 | ed | | | | | | | | (Dupl | | | | | | | | icate | | | | | | | | | | | | | | | | Entry | | | | | | | | (no | | | | | | | | Cance | | | | | | | | l Rx | | | | | | | | msg)) | + + + +---------+------+------+-------+ | LUTEIN-ZEAXANTHIN | Take by mouth. | | 0 | | 09/2 | Disco | | PO | | | | | 3/20 | ntinu | | | | | | | 20 | ed | | | | | | | | (Ther | | | | | | | | apy | | | | | | | | compl | | | | | | | | eted) | + + + +---------+------+------+-------+ | MEDROL 2 MG tablet | | | 0 | 04/0 | 09/2 | Disco | | | | | | 4/20 | 3/20 | ntinu | | | | | | 19 | 20 | ed | | | | | | | | (Ther | | | | | | | | apy | | | | | | | | compl | | | | | | | | eted) | + + + +---------+------+------+-------+ | metFORMIN | metformin hcl er 500 | | 0 | | 09/2 | Disco | | (GLUCOPHAGE-XR) 500 | mg tb24 | | | | 3/20 | ntinu | | mg 24 hr tablet | | | | | 20 | ed | | | | | | | | (Ther | | | | | | | | apy | | | | | | | | compl | | | | | | | | eted) | + + + +---------+------+------+-------+ | metFORMIN | metformin | | 0 | | 09/2 | Disco | | (GLUCOPHAGE-XR) 500 | hydrochloride er 500 | | | | 3/20 | ntinu | | mg 24 hr tablet | mg tb24 | | | | 20 | ed | | | | | | | | (Ther | | | | | | | | apy | | | | | | | | compl | | | | | | | | eted) | + + + +---------+------+------+-------+ | methotrexate 2.5 | methotrexate 2.5 mg | | 0 | | 09/2 | [facility] | | mg tablet | tabs | | | | 3/20 | ntinu | | | | | | | 20 | ed | | | | | | | | (Ther | | | | | | | | apy | | | | | | | | compl | | | | | | | | eted) | + + + +---------+------+------+-------+ | methotrexate 2.5 | | | 0 | 02/0 | 09/2 | [facility] | | mg tablet | | | | 5/20 | 3/20 | ntinu | | | | | | 19 | 20 | ed | | | | | | | | (Ther | | | | | | | | apy | | | | | | | | compl | | | | | | | | eted) | + + + +---------+------+------+-------+ | methylPREDNISolone | methylprednisolone 4 | | 0 | | 06/28 | [facility] | | (MEDROL) 4 mg | mg tabs | | | | 3/20 | ntinu | | tablet | | | | | 20 | ed | | | | | | | | (Ther | | | | | | | | apy | | | | | | | | compl | | | | | | | | eted) | + + + +---------+------+------+-------+ | methylPREDNISolone | | | 0 | 03/1 | /2 | [facility] | | (MEDROL) 4 mg | | | | 8/ | 3/20 | ntinu | | tablet | | | | 19 | 20 | ed | | | | | | | | (Ther | | | | | | | | apy | | | | | | | | compl | | | | | | | | eted) | + + + +---------+------+------+-------+ | metOLazone 2.5 mg | metolazone 2.5 mg | | 0 | | /2 | [facility] | | tablet | tabs | | | | 3/20 | ntinu | | | | | | | 20 | ed | | | | | | | | (Ther | | | | | | | | apy | | | | | | | | compl | | | | | | | | eted) | + + + +---------+------+------+-------+ | metoprolol | metoprolol succinate | | 0 | | 06/28 | [facility] | | succinate | er 25 mg tb24 | | | | 3/20 | ntinu | | (TOPROL-XL) 25 mg 24 | | | | | 20 | ed | | hr tablet | | | | | | (Ther | | | | | | | | apy | | | | | | | | compl | | | | | | | | eted) | + + + +---------+------+------+-------+ | metoprolol | | | 0 | 04/0 | /2 | [facility] | | succinate | | | | / | 3/20 | ntinu | | (TOPROL-XL) 25 mg 24 | | | | 19 | 20 | ed | | hr tablet | | | | | | (Ther | | | | | | | | apy | | | | | | | | compl | | | | | | | | eted) | + + + +---------+------+------+-------+ | Multiple | Take by mouth. | | 0 | | 09/2 | [facility] | | Vitamins-Minerals | | | | | 3/20 | ntinu | | (MULTIVITAMIN PO) | | | | | 20 | ed | | | | | | | | (Ther | | | | | | | | apy | | | | | | | | compl | | | | | | | | eted) | + + + +---------+------+------+-------+ | niacin 500 mg | Take 500 mg by mouth | | 0 | | 09/2 | [facility] | | tablet | 3 times daily (with | | | | 9/20 | ntinu | | | meals) . | | | | 20 | ed | + + + +---------+------+------+-------+ | nystatin | nystatin [id number] | | 0 | | 09/2 | [facility] | | (MYCOSTATIN) 100,000 | unit/ml susp | | | | 3/20 | ntinu | | units/mL suspension | | | | | 20 | ed | | | | | | | | (Ther | | | | | | | | apy | | | | | | | | compl | | | | | | | | eted) | + + + +---------+------+------+-------+ | nystatin | | | 0 | 12/0 | 09/2 | [facility] | | (MYCOSTATIN) 100,000 | | | | 4/20 | 3/20 | ntinu | | units/mL suspension | | | | 18 | 20 | ed | | | | | | | | (Ther | | | | | | | | apy | | | | | | | | compl | | | | | | | | eted) | + + + +---------+------+------+-------+ | [place]on-3 Fatty | [place] 3 | | 0 | | 09/2 | [facility] | | Acids (OMEGA 3 PO) | | | | | 3/20 | ntinu | | | | | | | 20 | ed | | | | | | | | (Ther | | | | | | | | apy | | | | | | | | compl | | | | | | | | eted) | + + + +---------+------+------+-------+ | [place]-3 Fatty | Take by mouth two | | 0 | | 09/2 | [facility] | | Acids (FISH OIL PO) | times daily. | | | | 3/20 | ntinu | | | | | | | 20 | ed | | | | | | | | (Ther | | | | | | | | apy | | | | | | | | compl | | | | | | | | eted) | + + + +---------+------+------+-------+ | omeprazole | omeprazole 20 mg | | 0 | | 2 | [facility] | | (PRILOSEC) 20 mg | cpdr | | | | 3/20 | ntinu | | capsule | | | | | 20 | ed | | | | | | | | (Ther | | | | | | | | apy | | | | | | | | compl | | | | | | | | eted) | + + + +---------+------+------+-------+ | potassium chloride | potassium chloride | | 0 | | 09/2 | [facility] | | (KLOR-CON) 10 MEQ | cr 10 meq tbcr | | | | 3/20 | ntinu | | ER tablet | | | | | 20 | ed | | | | | | | | (Ther | | | | | | | | apy | | | | | | | | compl | | | | | | | | eted) | + + + +---------+------+------+-------+ | potassium chloride | | | 0 | 03/1 | 09/2 | [facility] | | (KLOR-CON) 10 MEQ | | | | 9/20 | 3/20 | ntinu | | ER tablet | | | | 19 | 20 | ed | | | | | | | | (Ther | | | | | | | | apy | | | | | | | | compl | | | | | | | | eted) | + + + +---------+------+------+-------+ | potassium chloride | potassium chloride | | 0 | | 09/2 | [facility] | | (KLOR-CON) 10 mEq | er 10 meq tbcr | | | | 3/20 | ntinu | | CR tablet | | | | | 20 | ed | | | | | | | | (Ther | | | | | | | | apy | | | | | | | | compl | | | | | | | | eted) | + + + +---------+------+------+-------+ | potassium chloride | | | 0 | 09/0 | 09/2 | [facility] | | (KLOR-CON) 10 mEq | | | | 7/20 | 3/20 | ntinu | | CR tablet | | | | 18 | 20 | ed | | | | | | | | (Ther | | | | | | | | apy | | | | | | | | compl | | | | | | | | eted) | + + + +---------+------+------+-------+ | potassium chloride | potassium chloride | | 0 | | 09/2 | [facility] | | 20 mEq CR tablet | er 20 meq tbcr | | | | 3/20 | ntinu | | | | | | | 20 | ed | | | | | | | | (Ther | | | | | | | | apy | | | | | | | | compl | | | | | | | | eted) | + + + +---------+------+------+-------+ | potassium chloride | | | 0 | 09/2 | 09/2 | [facility] | | 20 mEq CR tablet | | | | 7/20 | 3/20 | ntinu | | | | | | 18 | 20 | ed | | | | | | | | (Ther | | | | | | | | apy | | | | | | | | compl | | | | | | | | eted) | + + + +---------+------+------+-------+ | simvastatin | simvastatin 40 mg | | 0 | | 09/2 | [facility] | | (ZOCOR) 40 mg tablet | tabs | | | | 3/20 | ntinu | | | | | | | 20 | ed | | | | | | | | (Ther | | | | | | | | apy | | | | | | | | compl | | | | | | | | eted) | + + + +---------+------+------+-------+ | torsemide | Take 20 mg by mouth | | 0 | | 06/28 | [facility] | | (DEMADEX) 20 mg | 2 times daily May | | | | / | ntinu | | tablet | take 40 mg BID if | | | | 20 | ed | | | needed. | | | | | (Reor | | | | | | | | alie | | | | | | | | (no | | | | | | | | Cance | | | | | | | | l Rx | | | | | | | | msg)) | + + + +---------+------+------+-------+ | torsemide | | | 0 | 02/2 | /2 | [facility] | | (DEMADEX) 20 mg | | | | 3/20 | 3/20 | ntinu | | tablet | | | | 19 | 20 | ed | | | | | | | | (Ther | | | | | | | | apy | | | | | | | | compl | | | | | | | | eted) | + + + +---------+------+------+-------+ | Cholecalciferol | Vitamin D | | 0 | | 09/2 | [facility] | | (VITAMIN D PO) | | | | | 3/20 | ntinu | | | | | | | 20 | ed | | | | | | | | (Ther | | | | | | | | apy | | | | | | | | compl | | | | | | | | eted) | + + + +---------+------+------+-------+ | warfarin | warfarin sodium 2.5 | | 0 | | 09/2 | [facility] | | (COUMADIN) 2.5 mg | mg tabs | | | | 3/20 | ntinu | | tablet | | | | | 20 | ed | | | | | | | | (Ther | | | | | | | | apy | | | | | | | | compl | | | | | | | | eted) | + + + +---------+------+------+-------+ | warfarin | | | 0 | 04/0 | 09/2 | [facility] | | (COUMADIN) 2.5 mg | | | | 7/20 | 3/20 | ntinu | | tablet | | | | 19 | 20 | ed | | | | | | | | (Ther | | | | | | | | apy | | | | | | | | compl | | | | | | | | eted) | + + + +---------+------+------+-------+ | clotrimazole | clotrimazole 1 % | | 0 | | 06/28 | [facility] | | (LOTRIMIN) 1% cream | topical cream APPLY | | | | 3/20 | ntinu | | | TO THE AFFECTED AND | | | | 20 | ed | | | SURROUNDING AREAS OF | | | | | (Ther | | | SKIN BY TOPICAL | | | | | apy | | | ROUTE 2 TIMES PER | | | | | compl | | | DAY IN THE MORNING | | | | | eted) | | | AND EVENING not on | | | | | | + + + +---------+------+------+-------+ | colchicine | Colcrys 0.6 mg | | 0 | | 06/28 | [facility] | | (COLCRYS) 0.6 mg | tablet Take 1 tablet | | | | 3/20 | ntinu | | tablet | every day by oral | | | | 20 | ed | | | route. prn | | | | | (Ther | | | | | | | | apy | | | | | | | | compl | | | | | | | | eted) | + + + +---------+------+------+-------+ | DOCOSAHEXAENOIC | Take 1 capsule by | | 0 | | /2 | [facility] | | ACID PO | mouth once daily. | | | | 01/13 | ntinu | | | | | | | 20 | ed | | | | | | | | (Ther | | | | | | | | apy | | | | | | | | compl | | | | | | | | eted) | + + + +---------+------+------+-------+ | Doxycycline | Take 100 mg by mouth | | 0 | | 06/28 | [facility] | | Monohydrate 150 MG | 2 (two) times | | | | 01/13 | ntinu | | CAPS | daily. | | | | 20 | ed | | | | | | | | (Ther | | | | | | | | apy | | | | | | | | compl | | | | | | | | eted) | + + + +---------+------+------+-------+ | eplerenone | Take 12.5 mg by | | 0 | /2 | 2 | [facility] | | (INSPRA) 25 mg | mouth once daily. | | | 04/15 | 3/20 | ntinu | | tablet | | | | 17 | 20 | ed | | | | | | | | (Ther | | | | | | | | apy | | | | | | | | compl | | | | | | | | eted) | + + + +---------+------+------+-------+ | | Inhale 1 puff into | | 0 | | 09/2 | [facility] | | fluticasone-salmeter | the lungs 2 (two) | | | | 3/20 | ntinu | | ol (ADVAIR, WIXELA | times daily. | | | | 20 | ed | | INHUB) 250-50 | | | | | | (Ther | | mcg/puff diskus | | | | | | apy | | inhaler | | | | | | compl | | | | | | | | eted) | + + + +---------+------+------+-------+ | glipiZIDE | Take 10 mg by mouth | | 0 | | 09/2 | [facility] | | (GLUCOTROL) 10 MG | 2 (two) times daily | | | | 3/20 | ntinu | | tablet | before meals. | | | | 20 | ed | | | | | | | | (Ther | | | | | | | | apy | | | | | | | | compl | | | | | | | | eted) | + + + +---------+------+------+-------+ | methylPREDNISolone | Take 1 mg by mouth | | 0 | 04/0 | /2 | [facility] | | (MEDROL) 2 MG | daily. | | | 02/13 | 01/13 | ntinu | | tablet | | | | 19 | 20 | ed | | | | | | | | (Ther | | | | | | | | apy | | | | | | | | compl | | | | | | | | eted) | + + + +---------+------+------+-------+ | metoprolol | Take 25 mg by mouth | | 0 | | 06/28 | [facility] | | succinate (KAPSPARGO | Daily . | | | | 01/13 | ntinu | | SPRINKLE) 25 mg ER | | | | | 20 | ed | | capsule | | | | | | (Ther | | | | | | | | apy | | | | | | | | compl | | | | | | | | eted) | + + + +---------+------+------+-------+ | niacinamide 500 MG | Take 500 mg by mouth | | 0 | | / | [facility]co | | tablet | 2 (two) times daily | | | | 01/13 | ntinu | | | with meals. | | | | 20 | ed | | | | | | | | (Ther | | | | | | | | apy | | | | | | | | compl | | | | | | | | eted) | + + + +---------+------+------+-------+ | omeprazole | | | 0 | 04/1 | 09/2 | [facility] | | (PRILOSEC) 20 mg | | | | 7/ | 3/20 | ntinu | | capsule | | | | 19 | 20 | ed | | | | | | | | (Ther | | | | | | | | apy | | | | | | | | compl | | | | | | | | eted) | + + + +---------+------+------+-------+ | potassium chloride | potassium chloride | | 0 | | 09/2 | [facility] | | (MICRO-K) 10 mEq CR | ER 10 mEq | | | | /20 | ntinu | | capsule | capsule,extended | | | | 20 | ed | | | release Take 3 | | | | | (Ther | | | capsules every day | | | | | apy | | | by oral route. | | | | | compl | | | | | | | | eted) | + + + +---------+------+------+-------+ | | | | 2 | 01/3 | 09/2 | [facility] | | promethazine-codeine | | | | 11/15 | 3/20 | ntinu | | (PHENERGAN WITH | | | | 19 | 20 | ed | | CODEINE) 6.25-10 | | | | | | (Ther | | mg/5 mL liquid | | | | | | apy | | | | | | | | compl | | | | | | | | eted) | + + + +---------+------+------+-------+ | docusate-senna | Take 1 tablet by | | 0 | 05/28 | 06/28 | [facility] | | (SENOKOT-S) 50-8.6 | mouth two times | | | 11/15 | 3/20 | ntinu | | mg per tablet | daily. | | | 18 | 20 | ed | | | | | | | | (Ther | | | | | | | | apy | | | | | | | | compl | | | | | | | | eted) | + + + +---------+------+------+-------+ | torsemide | Take 1 tablet by | | 0 | /2 | 06/28 | [facility] | | (DEMADEX) 20 mg | mouth daily. | | | 4/20 | 3/20 | ntinu | | tablet | | | | 19 | 20 | ed | | | | | | | | (Ther | | | | | | | | apy | | | | | | | | compl | | | | | | | | eted) | + + + +---------+------+------+-------+ | triamcinolone | Apply to affected | | 0 | | 09/2 | [facility] | | (KENALOG) 0.1% cream | area three times | | | | 3/20 | ntinu | | | daily. Apply thin | | | | 20 | ed | | | film to affected | | | | | (Ther | | | areas. | | | | | apy | | | | | | | | compl | | | | | | | | eted) | + + + +---------+------+------+-------+ | allopurinol | allopurinol 300 mg | | 0 | | 09/2 | [facility] | | (ZYLOPRIM) 300 mg | tablet Take 1 tablet | | | | 3/20 | ntinu | | tablet | every day by oral | | | | 20 | ed | | | route. current | | | | | (Ther | | | | | | | | apy | | | | | | | | compl | | | | | | | | eted) | + + + +---------+------+------+-------+ | carvedilol (COREG) | TAKE ONE TABLET BY | | 0 | 04/0 | 09/2 | [facility] | | 12.5 mg tablet | MOUTH TWICE DAILY | | | 9/20 | 01/13 | ntinu | | | | | | 18 | 20 | ed | | | | | | | | (Ther | | | | | | | | apy | | | | | | | | compl | | | | | | | | eted) | + + + +---------+------+------+-------+ | carvedilol (COREG) | carvedilol 3.125 mg | | 0 | | 06/28 | [facility] | | 3.125 mg tablet | tabs | | | | 01/13 | ntinu | | | | | | | 20 | ed | | | | | | | | (Ther | | | | | | | | apy | | | | | | | | compl | | | | | | | | eted) | + + + +---------+------+------+-------+ | cephalexin | Take 1 capsule by | | 0 | 12/25 | 06/28 | [facility] | | (KEFLEX) 500 mg | mouth every eight | | | 06/15 | 01/13 | ntinu | | capsule | hours. Indications: | | | 19 | 20 | ed | | | bone/joint infection | | | | | (Ther | | | | | | | | apy | | | | | | | | compl | | | | | | | | eted) | + + + +---------+------+------+-------+ | cholecalciferol | Take 1,000 Units by | | 0 | | 09/2 | [facility] | | (CHOLECALCIFEROL) | mouth once daily. | | | | 3/20 | ntinu | | 1000 units TABS | | | | | 20 | ed | | | | | | | | (Ther | | | | | | | | apy | | | | | | | | compl | | | | | | | | eted) | + + + +---------+------+------+-------+ | cholecalciferol | Take 1,000 Units by | | 0 | | 09/2 | [facility] | | (CHOLECALCIFEROL) | mouth daily. | | | | 3/20 | ntinu | | 1000 units TABS | | | | | 20 | ed | | | | | | | | (Ther | | | | | | | | apy | | | | | | | | compl | | | | | | | | eted) | + + + +---------+------+------+-------+ | folic acid 1 mg | folic acid 1 mg | | 0 | | 09/2 | [facility] | | tablet | tablet Take 1 tablet | | | | 3/20 | ntinu | | | every day by oral | | | | 20 | ed | | | route. current | | | | | (Ther | | | | | | | | apy | | | | | | | | compl | | | | | | | | eted) | + + + +---------+------+------+-------+ | furosemide (LASIX) | furosemide 20 mg | | 0 | | 09/2 | [facility] | | 20 mg tablet | tabs | | | | 3/20 | ntinu | | | | | | | 20 | ed | | | | | | | | (Ther | | | | | | | | apy | | | | | | | | compl | | | | | | | | eted) | + + + +---------+------+------+-------+ | glimepiride | glimepiride 4 mg | | 0 | | 09/2 | [facility] | | (AMARYL) 4 mg tablet | tablet Take 1 tablet | | | | 3/20 | ntinu | | | every day by oral | | | | 20 | ed | | | route. current | | | | | (Ther | | | | | | | | apy | | | | | | | | compl | | | | | | | | eted) | + + + +---------+------+------+-------+ | isosorbide | Take 1 tablet by | | 0 | 04/1 | 09/2 | [facility] | | mononitrate 60 mg ER | mouth daily. | | | 0/20 | 3/20 | ntinu | | tablet | | | | 18 | 20 | ed | | | | | | | | (Ther | | | | | | | | apy | | | | | | | | compl | | | | | | | | eted) | + + + +---------+------+------+-------+ | isosorbide | isosorbide | | 0 | | 06/28 | [facility] | | mononitrate (IMDUR) | mononitrate ER 30 mg | | | | 3/20 | ntinu | | 30 mg ER tablet | tablet,extended | | | | 20 | ed | | | release 24 hr Take 1 | | | | | (Ther | | | tablet every day by | | | | | apy | | | oral route. | | | | | compl | | | | | | | | eted) | + + + +---------+------+------+-------+ | losartan (COZAAR) | losartan potassium | | 0 | | 09/2 | [facility] | | 50 mg tablet | 50 mg tabs | | | | 3/20 | ntinu | | | | | | | 20 | ed | | | | | | | | (Dupl | | | | | | | | icate | | | | | | | | | | | | | | | | Entry | | | | | | | | (no | | | | | | | | Cance | | | | | | | | l Rx | | | | | | | | msg)) | + + + +---------+------+------+-------+ | metFORMIN | Take 500 mg by mouth | | 0 | | /2 | [facility] | | (GLUCOPHAGE) 500 mg | 2 (two) times daily | | | | 3/20 | ntinu | | tablet | with meals. | | | | 20 | ed | | | | | | | | (Ther | | | | | | | | apy | | | | | | | | compl | | | | | | | | eted) | + + + +---------+------+------+-------+ | metFORMIN | metformin ER 500 mg | | 0 | | / | [facility] | | (GLUMETZA) 500 MG 24 | 24 hr | | | | 3/20 | ntinu | | hr tablet | tablet,extended | | | | 20 | ed | | | release Take 1 | | | | | (Dupl | | | tablet every day by | | | | | icate | | | oral route. | | | | | | | | | | | | | Entry | | | | | | | | (no | | | | | | | | Cance | | | | | | | | l Rx | | | | | | | | msg)) | + + + +---------+------+------+-------+ | metOLazone 2.5 mg | metolazone 2.5 mg | | 0 | | 09/2 | [facility] | | tablet | tablet Take 1 tablet | | | | 3/20 | ntinu | | | every day by oral | | | | 20 | ed | | | route. | | | | | (Ther | | | | | | | | apy | | | | | | | | compl | | | | | | | | eted) | + + + +---------+------+------+-------+ | Multiple | Take 1 tablet by | | 0 | | 09/2 | [facility] | | Vitamins-Minerals | mouth. | | | | 3/20 | ntinu | | (EYE VITAMINS) CAPS | | | | | 20 | ed | | | | | | | | (Ther | | | | | | | | apy | | | | | | | | compl | | | | | | | | eted) | + + + +---------+------+------+-------+ | | Apply topically 2 | | 0 | | 09/2 | [facility] | | nystatin-triamcinolo | (two) times daily as | | | | 3/20 | ntinu | | ne (MYCOLOG II) | needed. | | | | 20 | ed | | ointment | | | | | | (Ther | | | | | | | | apy | | | | | | | | compl | | | | | | | | eted) | + + + +---------+------+------+-------+ | | nystatin-triamcinolo | | 0 | | 09/2 | [facility] | | nystatin-triamcinolo | ne 100,000 | | | | 3/20 | ntinu | | ne (MYCOLOG II) | unit/g-0.1 % topical | | | | 20 | ed | | cream | cream APPLY TO THE | | | | | (Ther | | | AFFECTED AREA(S) BY | | | | | apy | | | TOPICAL ROUTE 2 | | | | | compl | | | TIMES PER DAY IN | | | | | eted) | | | THEMORNING AND | | | | | | | | EVENING prn | | | | | | + + + +---------+------+------+-------+ | [place]-3 Fatty | Take 1,200 mg by | | 0 | | 09/2 | [facility] | | Acids (FISH OIL) | mouth 2 (two) times | | | | 3/20 | ntinu | | 1200 MG CAPS | daily. | | | | 20 | ed | | | | | | | | (Ther | | | | | | | | apy | | | | | | | | compl | | | | | | | | eted) | + + + +---------+------+------+-------+ | potassium chloride | Take 10 mEq by mouth | | 0 | 01/2 | 09/2 | [facility] | | (KLOR-CON) 10 MEQ | daily. Pt is taking | | | 4/20 | 3/20 | ntinu | | ER tablet | 3 tablets daily. | | | 19 | 20 | ed | | | | | | | | (Ther | | | | | | | | apy | | | | | | | | compl | | | | | | | | eted) | + + + +---------+------+------+-------+ | simvastatin | simvastatin 40 mg | | 0 | | /2 | [facility]co | | (ZOCOR) 40 mg tablet | tablet Take 1 tablet | | | | 3/20 | ntinu | | | every day by oral | | | | 20 | ed | | | route. | | | | | (Ther | | | | | | | | apy | | | | | | | | compl | | | | | | | | eted) | + + + +---------+------+------+-------+ | warfarin | Take 2.5 mg by mouth | | 0 | | 09/2 | [facility] | | (COUMADIN) 2.5 mg | Daily . | | | | 07/16 | ntinu | | tablet | | | | | 20 | ed | | | | | | | | (Reor | | | | | | | | alie | | | | | | | | (no | | | | | | | | Cance | | | | | | | | l Rx | | | | | | | | msg)) | + + + +---------+------+------+-------+ | metoprolol | Take 25 mg by mouth | | 0 | | 06/28 | [facility] | | succinate | Daily. | | | | 07/16 | ntinu | | (TOPROL-XL) 25 mg 24 | | | | | 20 | ed | | hr tablet | | | | | | | + + + +---------+------+------+-------+ | | Take 1 tablet by | 30 | 1 | 06/28 | 06/28 | [facility] | | sacubitril-valsartan | mouth 2 times daily. | tablet | | 07/16 | 07/16 | ntinu | | (ENTRESTO) 24-26 mg | | | | 20 | 20 | ed | | per tablet | | | | | | | + + + +---------+------+------+-------+ Active Problems + + + | Problem | Noted Date | + + + | Shock | 07/18/2020 | + + + | COVID-19 | 07/18/2020 | + + + | Chronic sinusitis | 05/19/2019 | + + + | Dyspeptic diarrhea | 05/19/2019 | + + + | Gout | 05/19/2019 | + + + | Diabetes mellitus | 05/19/2019 | + + + | Heart disease | 05/19/2019 | + + + | OMID II Inhibitors - Daily Use | 02/10/2019 | + + + | Chronic renal insufficiency, stage 4 (severe) | 02/10/2019 | + + + | Encounter for long-term (current) use of antibiotics | 06/17/2018 | + + + | Infection of prosthetic right knee joint | 06/16/2018 | + + + | Atrial fibrillation | 06/11/2018 | + + + | 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 | 06/11/2018 | + + + | Heart block | 06/11/2018 | + + + | Ischemic cardiomyopathy | 06/11/2018 | + + + | Systolic heart failure | 06/11/2018 | + + + | Coronary artery disease involving coronary bypass graft without | 06/11/2018 | | angina pectoris | | + + + | Essential (primary) hypertension | 06/11/2018 | + + + | 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 | + + + + + | Ankylosing spondylitis | 07/22/2017 | + + + + + | Overview: For 2014 DVT (right leg) | + + + + + | Dysphagia | 07/22/2017 | + + + | GERD (gastroesophageal reflux disease) | 07/22/2017 | + + + | Hypertension | 07/22/2017 | + + + | CAD (coronary artery disease) | 07/22/2017 | + + + | H/O CABG | 07/22/2017 | + + + | H/O PTCA - with Coronary STENT Placement | 07/22/2017 | + + + | Cardiac pacemaker in situ - MEDTRONIC | 07/22/2017 | + + + + + | Overview: Medtronic - Placed Sep 2016 for Symptomatic | | Bradycardia | + + + + + | Class I, BMI 30-34.9 | 07/22/2017 | + + + | buttermaker continuous churn current use of anticoagulant - COUMADIN | 07/22/2017 | + + + | Beta Blockers - Daily Use | 07/22/2017 | + + + | Diabetes mellitus, type II - ORAL Control | 07/22/2017 | + + + | Opcbc-nc-Rzkjgy lying flat | 07/22/2017 | + + + | History of gout | 02/09/2017 | + + + + + | Overview: Overview: He is on allopurinol 300 mg per day. | | Also on colchicine as needed. | + + + + + | Morbid obesity | 01/31/2017 | + + + + + | Overview: Last Assessment & Plan: | | Weight loss of 1-2 pounds per week was encouraged. | + + + + + | Skin lesions, generalized | 01/31/2017 | + + + + + | Overview: Overview: He is seen a building energy consultant because of | | generalized skin lesions that start with redness and then form a | | blister and then a blood blister. Now on doxycycline. | + + + + + | Venous insufficiency of both lower extremities | 01/31/2017 | + + + + + | Overview: Overview: He has chronic venous insufficiency with | | venous stasis bilaterally. On high-dose diuretics and feeling | | very thirsty. Clinically seems to be dehydrated.Last Assessment & | | Plan: Use Omid wraps for the lower extremities bilaterally. | | Decrease Lasix to 20 mg per day and stop metalazone and | | potassium. Add spironolactone 12.5 mg per day. Hold Lasix for one | | day | + + + + + | Pacemaker | 01/24/2017 | + + + + + | Overview: 1. Pulse generator: [employer]. Model number [id number], | | serial number [id number]. 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 Pauses of up to 3.5 seconds | | were noted along with lightheadedness. A two-week monitor had | | shown first-degree AV block, Mobitz 1 and 2 secondary AV block, | | and a 3.5 second episode of asystole. There was a bundle branch | | block also (right), and left anterior fascicular block.2. RV | | lead: Medtronic, model #[id number], serial number [id number]. RA | | lead: Medtronic, model #187635, serial number [id number]. This | | is an Medtronic MRI compatible pacemaker. Placed in September | | 2015. Dr Ha.01/13/2018Changes this session: A. Amp increased | | to 1.00v from 0.75v, and upper sensor rate was decreased to 115 | | BPM from 130 BPM.AVWB OCCURRED AT 100 bpm today.Last Assessment & | | Plan: The right ventricular lead is not working properly because | | of markedly elevated pacing threshold of 0.5 ms at 8 V. The RV | | lead was programmed to 8 V and 1.2 ms today which is the highest | | output that can be achieved. AV wencheback occurred at 100 bpm. | | The device was programmed to an AAIR pacing mode with managed | | ventricular pacing algorithm. The atrial pacing threshold today | | was excellent (0.2 ms at 0.75 V). It was left at 0.75 V at 0.6 | | ms.I think the risks of change out or repositioning of the | | ventricular lead at this time outweigh the benefits. He probably | | will hardly ever pace the ventricle unless his AV node or | | His-Purkinje system worsen. If/when that happens, a new lead | | could be placed, or the current lead could be repositioned, if | | it happens reasonably soon. If he needs to pace in the right | | ventricle very much, a new lead should be placed sooner than | | later. | + + + + + | Obstructive sleep apnea syndrome | 11/25/2016 | + + + + + | Overview: He snores loudly. Sleeps in a chair (has done that | | for 10 years). A sleep study has apparently been ordered but he | | has not gotten it done yet. He does not want to take CPAP and | | has no intentions of doing that.Last Assessment & Plan: I | | encouraged him to get the sleep study done REGINA. | + + + + + | DVT (deep venous thrombosis) | 10/13/2014 | + + + + + | Overview: Last Assessment & Plan: Hx DVT, right leg, chronic | | venous insufficiency. On warfarin, managed by PCP.Arterial US, | | lower Ext, 10/09/2015: TDS, calcification of trifurcation | | vessels, mild-moderate disease in upper vessels. | + + + + + | Type 2 diabetes mellitus without complication | 10/13/2014 | + + + + + | Overview: Last Assessment & Plan: | | DM2, managed by PCP. | | Overview: | | On metformin and glimepramide. | + + + + + | Hyperlipidemia | 10/12/2013 | + + + + + | Overview: Overview: On statin therapy (simvastatin 40 mg per | | day).Last Assessment & Plan: Hyperlipidemia, at goal, continue | | current meds at current dose (simvastatin). Labs reviewed with | | patient.Lab, 09/23/2016: T Chol: 105, LDL-Chol: 36, HDL-Chol: 40, | | Tri Liver enzymes NML, K: 4.1, | | BUN/Cr: 230/1.4 (GFR 50), glu: 126 | | TSH: 2.24, HgbA1c: 6.5, WBC: 7.3, H/H: 14.9/45.4, plt: 114, ESR: | | 18 | + + + + + | Coronary atherosclerosis | 10/12/2013 | + + + + + | Overview: A two-vessel bypass graft surgery was performed in | | 2000 with a saphenous vein graft to the LAD and separate | | saphenous vein graft to the PDA. There were 3 stents prior to the | | bypass surgery (details uncertain). In October 2015, there was a | | 70% proximal LAD lesion, 90% ostial first diagonal, 85% ostial | | second diagonal, 40% ramus intermedius, and the proximal RCA was | | occluded (previous stenting). The circumflex looked good. There | | were extensive left to right coronary collaterals. The saphenous | | vein graft to the LAD was patent and the graft to the RCA was | | occluded. The ejection fraction was 45%, with inferobasal | | akinesia. Prior to that cath, a nuclear stress test in September | | 2012 had shown mid distal inferoapical ischemia and ejection | | fraction was 53%.January 13, 2018: He is asymptomatic.Last | | Assessment & Plan: 2V-CAD, Hx PCI/stent, Hx CABG, LVEF 50-60%. | | 76yo WM, reporting 2 episodes of lightheadedness, | | associated with a slow heart rate, in the 30s. Both times, he | | was sitting at his computer, felt lightheaded, used his pulse | | oximeter to assess his pulse, both times reading in the 30's. | | These episodes are brief, no syncope. He remains modestly active, | | admits chronic stable angina with shortness of breath, but there | | is no significant orthopnea or PND, no chest discomfort at rest. | | His angina appears to be stable. Denies any palpitations. | | Denies any new visual disturbances, dysarthria, dysphasia, | | lateralizing signs or symptoms. No significant bleeding or | | bruising. ECG shows the trifascicular block, not a new finding. | | Cardiac event monitor reveal 2 episodes of pauses, 3.5sec. | | Pacemaker recommended, he is open to this, however is planning to | | go to [place] after . He is on warfarin at this time, | | and also on carvedilol. We discussed a possibility of delaying | | his travel vs having a pacemaker and plantation delayed. He has | | not had a syncopal episode, elected to suspend his carvedilol for | | now, and allow him to travel. Up on his return, will suspend | | his warfarin and schedule him for pacemaker implantation, after | | which the carvedilol can be resumed. If he has any worsening of | | his symptoms, he is to seek medical attention immediately.Hx | | CAB, CABG*2 (SVG to LAD, SVG to PDA).Hx PCI/stent: | | stents*3 prior to CABG (specifics unknown).Hx Pacemaker/ICD: | | noLast Cath, 10/31/2015: left main OK, 70% prox-LAD, 90% osteal D1, | | 85% osteal D2, 40% ramus, LCx/OM's OK, prox-RCA occ (previous | | stent), extensive L->R collaterals. SVG to LAD patent, SVG to | | RCA occluded. LVEF 45%, infero-basal akinesis.Last Echo, | | 01/23/2012: LV enlarged, LVEF 45-50%, mild LAE, trace MR, trace | | TR.Last stress test, 10/09/2015: Lexiscan, mild distal | | inferior-apical ischemia, LVEF 53%.[employer], | | 10/10/2016: sinus rhythm, with frequent PVC's, no VT, however, | | 1st degree AVB, 2nd degree AVB (Type 1 and 2), 3.5sec asystole, | | bundle branch block.ECG, 09/12/2016: sinus rhythm, 78bpm, 1st | | degree AVB, old inferior [place], RBBB/LAFB. 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[place] | | | | | | heart without angina | | | | | | pectoris; Cardiac | | | | | | pacemaker in situ; | | | | | | Chronic renal | | | | | | insufficiency, stage | | | | | | 4 (severe) ([facility]); | | | | | | COVID-19; Heart | | | | | | block; Hx of CABG; | | | | | | Hyperlipidemia, | | | | | | unspecified | | | | | | hyperlipidemia type; | | | | | | Hypotension, | | | | | | unspecified | | | | | | hypotension type; | | | | | | Ischemic | | | | | | cardiomyopathy; PSVT | | | | | | (paroxysmal | | | | | | supraventricular | | | | | | tachycardia) ([facility]); | | | | | | Nonsustained | | | | | | ventricular | | | | | | tachycardia ([facility]); | | | | | | 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 | | | | | | graft without angina | | | | | | pectoris; Ischemic | | | | | | dilated | | | | | | cardiomyopathy | | | | | | ([facility]); Chronic | | | | | | systolic heart | | | | | | failure ([facility]); SSS | | | | | | (sick sinus | | | | | | syndrome) ([facility]); | | | | | | COVID-19 with | | | | | | multiple | | | | | | comorbidities | +--------+ + + + + | 07/18/ | Documentati | Cardiology | Bobbi Palacio, | | | 2020 | on | | MD | | +--------+ + + + + from Last 3 Months Family History + + +------+ + | Medical History | Relation | Name | Comments | + + +------+ + | Heart disease | Mother | | | + + +------+ + + +------+ + + | Relation | Name | Status | Comments | + +------+ + + | Father | | | accident | | | | (Age | | | | | 42) | | + +------+ + + | Mother | | | heart disease | | | | (Age | | | | | 84) | | + +------+ + + | Mother | | | | + +------+ + + Social History + +-------+ +--------+ [...] +---------+ + | No | | | Alcoholic | | | | | Drinks/day: rarely | + + +---------+ + + + + | Sex Assigned at | Date Recorded | | | | + + + | Not on file | | + + + Last Filed Vital Signs + + + + + | Vital Sign | Reading | Time Taken | Comments | + + + + + | Blood Pressure | 103/60 | 07/25/2020 7:31 AM | | | | | PDT | | + + + + + | Pulse | 107 | 07/25/2020 7:31 AM | | | | | PDT | | + + + + + | Temperature | 37.4 C (99.4 F) | 07/25/2020 7:31 AM | | | | | PDT | | + + + + + | Respiratory Rate | 16 | 07/25/2020 7:31 AM | | | | | PDT | | + + + + + | Oxygen Saturation | 94% | 07/25/2020 7:31 AM | | | | | PDT | | + + + + + | Inhaled Oxygen | - | - | | | Concentration | | | | + + + + + | Weight | 76.6 kg (168 lb 14.4 | 07/25/2020 3:04 AM | | | | oz) | PDT | | + + + + + | Height | 170.2 cm (5' 7") | 07/18/2020 4:00 PM | | | | | PDT | | + + + + + | Body Mass Index | 26.45 | 07/18/2020 4:00 PM | | | | | PDT | | + + + + + Plan of Treatment +--------+ + + + [...] | | +--------+ + + + + + + + + + | Health Maintenance | Due Date | Last | Comments | | | | Done | | + + + + + | Medication | | | | | Management | 8 | | | + + + + + | Urine Drug Screening | | | | | | 4 | | | + + + + + | Diabetic Eye Exam | | | | | | 6 | | | + + + + + | Diabetic Foot Exam | | | | | | 6 | | | + + + + + | Vaccine: | | | | | Pneumococcal 65+ (1 | 3 | | | | of 1 - PPSV23) | | | | + + + + + | Vaccine: Zoster (2 | | 08/25/20 | | | of 3) | 7 | 07 | | + + + + + | Hemoglobin A1c | | 01/13/20 | | | Screening | 8 | 18 | | + + + + + | Med Mgmt: HBA1C | | 01/13/20 | | | | 8 | 18 | | + + + + + | Med Mgmt: Vit D | | 01/13/20 | | | | 9 | 18 | | + + + + + | Adult Annual | | | | | Wellness Visit | 9 | | | + + + + + | Vaccine: Influenza | | 08/02/20 | | | (#1) | 0 | 19, | | | | | 08/19/20 | | | | | 18, | | | | | 08/07/20 | | | | | 17, | | | | | Addition | | | | | al | | | | | history | | | | | exists | | + + + + + | Med Mgmt: INR | | 07/25/20 | | | | 0 | 20, | | | | | 07/24/20 | | | | | 20, | | | | | 07/23/20 | | | | | 20, | | | | | Addition | | | | | al | | | | | history | | | | | exists | | + + + + + | Med Mgmt: Cr | | 07/25/20 | | | | 1 | 20, | | | | | 07/24/20 | | | | | 20, | | | | | 07/23/20 | | | | | 20, | | | | | Addition | | | | | al | | | | | history | | | | | exists | | + + + + + | Med Mgmt: HCT | | 07/25/20 | | | | 1 | 20, | | | | | 07/24/20 | | | | | 20, | | | | | 07/23/20 | | | | | 20, | | | | | Addition | | | | | al | | | | | history | | | | | exists | | + + + + + | Med Mgmt: HGB | | 07/25/20 | | | | 1 | 20, | | | | | 07/24/20 | | | | | 20, | | | | | 07/23/20 | | | | | 20, | | | | | Addition | | | | | al | | | | | history | | | | | exists | | + + + + + | Med Mgmt: K | | 07/25/20 | | | | 1 | 20, | | | | | 07/24/20 | | | | | 20, | | | | | 07/23/20 | | | | | 20, | | | | | Addition | | | | | al | | | | | history | | | | | exists | | + + + + + | Med Mgmt: Na | | 07/25/20 | | | | 1 | 20, | | | | | 07/24/20 | | | | | 20, | | | | | 07/23/20 | | | | | 20, | | | | | Addition | | | | | al | | | | | history | | | | | exists | | + + + + + | Med Mgmt: PLT | | 07/25/20 | | | | 1 | 20, | | | | | 07/24/20 | | | | | 20, | | | | | 07/23/20 | | | | | 20, | | | | | Addition | | | | | al | | | | | history | | | | | exists | | + + + + + | Med Mgmt: RBC | | 07/25/20 | | | | 1 | 20, | | | | | 07/24/20 | | | | | 20, | | | | | 07/23/20 | | | | | 20, | | | | | Addition | | | | | al | | | | | history | | | | | exists | | + + + + + | Med Mgmt: WBC | | 07/25/20 | | | | 1 | 20, | | | | | 07/24/20 | | | | | 20, | | | | | 07/23/20 | | | | | 20, | | | | | Addition | | | | | al | | | | | history | | | | | exists | | + + + + + | Vaccine: | | 03/08/20 | | | Dtap/Tdap/Td (2 - | 2 | 12 | | | Td) | | | | + + + + + Implants + +------+------+ +--------+--------+--------+ | Implanted | Type | Area | Manufacture | Device | Shelf | Model | | | | | r | | Expira | / | | | | | | Identi | tion | Serial | | | | | | fier | Date | / Lot | + +------+------+ +--------+--------+--------+ | Tibial Baseplate Triathlon | | | | | 05/25/ | 5520-B | | Cemented Sz 5 - | | | | | 2017 | -500 | | [id number]: Qty: 1 on | | | | | | /[id number] | | 09/07/2013 by [employer]is, | | | | | | 500 | | Drew Mendoza MD | | | | | | /[id number] | + +------+------+ +--------+--------+--------+ | Patella Triathlon 38mm 11mm | | | | | 04/25/ | [id number] | | Height - [id number]: | | | | | 2017 | -381 | | Qty: 1 on 09/07/2013 by | | | | | | /[id number] | | Drew Hurst MD | | | | | | 381 | | | | | | | | /[id number] | + +------+------+ +--------+--------+--------+ | Femoral Comp Triathlon Cr | | | | | 02/23/ | 5517-F | | Beaded Sz 4 Rt - | | | | | 2017 | -402 | | [id number]: Qty: 1 on | | | | | | /[id number] | | 09/07/2013 by [employer], | | | | | | 402 | | Drew Mendoza MD | | | | | | /[id number] | + +------+------+ +--------+--------+--------+ | Cement Bone Antibiotic | | | | | 09/25/ | 6197-9 | | Tobramycin Simplex P 150mg | | | | | 2013 | -001 | | [id number] Single Pk - | | | | | | /[id number] | | [id number]: Qty: 1 on | | | | | | 001 | | 09/07/2013 by [employer], | | | | | | /[id number] | | Drew Mendoza MD | | | | | | 1 | + +------+------+ +--------+--------+--------+ | Insert Tibial Triathlon Cs Sz | | | | | 01/23/ | 5531-G | | 5 13mm - [id number]: | | | | | 2018 | -513 | | Qty: 1 on 09/07/2013 by | | | | | | /[id number] | | Drew Hurst MD | | | | | | 513 | | | | | | | | /[id number] | | | | | | | | 0 | + +------+------+ +--------+--------+--------+ Procedures + +--------+ + + + | Procedure Name | Priori | Date/Time | Associated Diagnosis | Comments | | | ty | | | | + +--------+ + + + | POC GLUCOSE (NON | Routin | 07/25/2020 | | Results for this | | ORD) | e | 7:28 AM | | procedure are in the | | | | PDT | | results section. | + +--------+ + + + | COMPREHENSIVE | Routin | 07/25/2020 | | Results for this | | METABOLIC PANEL | e | 5:28 AM | | procedure are in the | | | | PDT | | results section. | + +--------+ + + + | CBC WITH | Routin | 07/25/2020 | | Results for this | | DIFFERENTIAL | e | 5:28 AM | | procedure are in the | | | | PDT | | results section. | + +--------+ + + + | PROTIME INR | Routin | 07/25/2020 | | Results for this | | | e | 5:28 AM | | procedure are in the | | | | PDT | | results section. | + +--------+ + + + | POC GLUCOSE (NON | Routin | 07/24/2020 | | Results for this | | ORD) | e | 8:29 PM | | procedure are in the | | | | PDT | | results section. | + +--------+ + + + | POC GLUCOSE (NON | Routin | 07/24/2020 | | Results for this | | ORD) | e | 4:33 PM | | procedure are in the | | | | PDT | | results section. | + +--------+ + + + | POC GLUCOSE (NON | Routin | 07/24/2020 | | Results for this | | ORD) | e | 12:18 PM | | procedure are in the | | | | PDT | | results section. | + +--------+ + + + | POC GLUCOSE (NON | Routin | 07/24/2020 | | Results for this | | ORD) | e | 7:31 AM | | procedure are in the | | | | PDT | | results section. | + +--------+ + + + | CBC WITH | Routin | 07/24/2020 | | Results for this | | DIFFERENTIAL | e | 6:06 AM | | procedure are in the | | | | PDT | | results section. | + +--------+ + + + | BASIC METABOLIC | Routin | 07/24/2020 | | Results for this | | PANEL | e | 6:06 AM | | procedure are in the | | | | PDT | | results section. | + +--------+ + + + | PROTIME INR | Routin | 07/24/2020 | | Results for this | | | e | 6:06 AM | | procedure are in the | | | | PDT | | results section. | + +--------+ + + + | POC GLUCOSE (NON | Routin | 07/23/2020 | | Results for this | | ORD) | e | 8:02 PM | | procedure are in the | | | | PDT | | results section. | + +--------+ + + + | POC GLUCOSE (NON | Routin | 07/23/2020 | | Results for this | | ORD) | e | 4:48 PM | | procedure are in the | | | | PDT | | results section. | + +--------+ + + + | POC GLUCOSE (NON | Routin | 07/23/2020 | | Results for this | | ORD) | e | 11:29 AM | | procedure are in the | | | | PDT | | results section. | + +--------+ + + + | POC GLUCOSE (NON | Routin | 07/23/2020 | | Results for this | | ORD) | e | 8:10 AM | | procedure are in the | | | | PDT | | results section. | + +--------+ + + + | CK TOTAL | Routin | 07/23/2020 | | Results for this | | | e | 5:29 AM | | procedure are in the | | | | PDT | | results section. | + +--------+ + + + | MAGNESIUM | Routin | 07/23/2020 | | Results for this | | | e | 5:29 AM | | procedure are in the | | | | PDT | | results section. | + +--------+ + + + | CBC WITH | Routin | 07/23/2020 | | Results for this | | DIFFERENTIAL | e | 5:29 AM | | procedure are in the | | | | PDT | | results section. | + +--------+ + + + | BASIC METABOLIC | Routin | 07/23/2020 | | Results for this | | PANEL | e | 5:29 AM | | procedure are in the | | | | PDT | | results section. | + +--------+ + + + | PROTIME INR | Routin | 07/23/2020 | | Results for this | | | e | 5:29 AM | | procedure are in the | | | | PDT | | results section. | + +--------+ + + + | POC GLUCOSE (NON | Routin | 07/22/2020 | | Results for this | | ORD) | e | 8:30 PM | | procedure are in the | | | | PDT | | results section. | + +--------+ + + + | POC GLUCOSE (NON | Routin | 07/22/2020 | | Results for this | | ORD) | e | 4:56 PM | | procedure are in the | | | | PDT | | results section. | + +--------+ + + + | POC GLUCOSE (NON | Routin | 07/22/2020 | | Results for this | | ORD) | e | 12:02 PM | | procedure are in the | | | | PDT | | results section. | + +--------+ + + + | POC GLUCOSE (NON | Routin | 07/22/2020 | | Results for this | | ORD) | e | 7:59 AM | | procedure are in the | | | | PDT | | results section. | + +--------+ + + + | MAGNESIUM | Routin | 07/22/2020 | | Results for this | | | e | 7:06 AM | | procedure are in the | | | | PDT | | results section. | + +--------+ + + + | CBC WITH | Routin | 07/22/2020 | | Results for this | | DIFFERENTIAL | e | 7:06 AM | | procedure are in the | | | | PDT | | results section. | + +--------+ + + + | BASIC METABOLIC | Routin | 07/22/2020 | | Results for this | | PANEL | e | 7:06 AM | | procedure are in the | | | | PDT | | results section. | + +--------+ + + + | PROTIME INR | Routin | 07/22/2020 | | Results for this | | | e | 7:06 AM | | procedure are in the | | | | PDT | | results section. | + +--------+ + + + | POC GLUCOSE (NON | Routin | 07/21/2020 | | Results for this | | ORD) | e | 8:33 PM | | procedure are in the | | | | PDT | | results section. | + +--------+ + + + | POC GLUCOSE (NON | Routin | 07/21/2020 | | Results for this | | ORD) | e | 4:30 PM | | procedure are in the | | | | PDT | | results section. | + +--------+ + + + | POC GLUCOSE (NON | Routin | 07/21/2020 | | Results for this | | ORD) | e | 12:39 PM | | procedure are in the | | | | PDT | | results section. | + +--------+ + + + | FL VIDEO SWALLOW W | Routin | 07/21/2020 | | Results for this | | SPEECH | e | 12:17 PM | | procedure are in the | | | | PDT | | results section. | + +--------+ + + + | POC GLUCOSE (NON | Routin | 07/21/2020 | | Results for this | | ORD) | e | 7:57 AM | | procedure are in the | | | | PDT | | results section. | + +--------+ + + + | MAGNESIUM | Routin | 07/21/2020 | | Results for this | | | e | 6:40 AM | | procedure are in the | | | | PDT | | results section. | + +--------+ + + + | CK TOTAL | Routin | 07/21/2020 | | Results for this | | | e | 6:40 AM | | procedure are in the | | | | PDT | | results section. | + +--------+ + + + | CBC WITH | Routin | 07/21/2020 | | Results for this | | DIFFERENTIAL | e | 6:40 AM | | procedure are in the | | | | PDT | | results section. | + +--------+ + + + | BASIC METABOLIC | Routin | 07/21/2020 | | Results for this | | PANEL | e | 6:40 AM | | procedure are in the | | | | PDT | | results section. | + +--------+ + + + | PROTIME INR | Routin | 07/21/2020 | | Results for this | | | e | 6:40 AM | | procedure are in the | | | | PDT | | results section. | + +--------+ + + + | POC GLUCOSE (NON | Routin | 07/20/2020 | | Results for this | | ORD) | e | 8:48 PM | | procedure are in the | | | | PDT | | results section. | + +--------+ + + + | POC GLUCOSE (NON | Routin | 07/20/2020 | | Results for this | | ORD) | e | 4:59 PM | | procedure are in the | | | | PDT | | results section. | + +--------+ + + + | POC GLUCOSE (NON | Routin | 07/20/2020 | | Results for this | | ORD) | e | 4:25 PM | | procedure are in the | | | | PDT | | results section. | + +--------+ + + + | CK TOTAL | Routin | 07/20/2020 | | Results for this | | | e | 4:07 PM | | procedure are in the | | | | PDT | | results section. | + +--------+ + + + | POC GLUCOSE (NON | Routin | 07/20/2020 | | Results for this | | ORD) | e | 11:43 AM | | procedure are in the | | | | PDT | | results section. | + +--------+ + + + | POC GLUCOSE (NON | Routin | 07/20/2020 | | Results for this | | ORD) | e | 7:54 AM | | procedure are in the | | | | PDT | | results section. | + +--------+ + + + | T4, FREE | Routin | 07/20/2020 | | Results for this | | | e | 5:53 AM | | procedure are in the | | | | PDT | | results section. | + +--------+ + + + | TSH, REFLEX FREE T4 | Routin | 07/20/2020 | | Results for this | | | e | 5:53 AM | | procedure are in the | | | | PDT | | results section. | + +--------+ + + + | MAGNESIUM | Routin | 07/20/2020 | | Results for this | | | e | 5:53 AM | | procedure are in the | | | | PDT | | results section. | + +--------+ + + + | CK TOTAL | Routin | 07/20/2020 | | Results for this | | | e | 5:53 AM | | procedure are in the | | | | PDT | | results section. | + +--------+ + + + | CBC WITH | Routin | 07/20/2020 | | Results for this | | DIFFERENTIAL | e | 5:53 AM | | procedure are in the | | | | PDT | | results section. | + +--------+ + + + | BASIC METABOLIC | Routin | 07/20/2020 | | Results for this | | PANEL | e | 5:53 AM | | procedure are in the | | | | PDT | | results section. | + +--------+ + + + | LIPID PANEL | Routin | 07/20/2020 | | Results for this | | | e | 5:53 AM | | procedure are in the | | | | PDT | | results section. | + +--------+ + + + | PROTIME INR | Routin | 07/20/2020 | | Results for this | | | e | 5:53 AM | | procedure are in the | | | | PDT | | results section. | + +--------+ + + + | POC GLUCOSE (NON | Routin | 07/19/2020 | | Results for this | | ORD) | e | 7:50 PM | | procedure are in the | | | | PDT | | results section. | + +--------+ + + + | POC GLUCOSE (NON | Routin | 07/19/2020 | | Results for this | | ORD) | e | 5:22 PM | | procedure are in the | | | | PDT | | results section. | + +--------+ + + + | ECG 12 LEAD | Routin | 07/19/2020 | | Results for this | | | e | 4:17 PM | | procedure are in the | | | | PDT | | results section. | + +--------+ + + + | TSH | Routin | 07/19/2020 | | Results for this | | | e | 4:03 PM | | procedure are in the | | | | PDT | | results section. | + +--------+ + + + | PROTIME INR | STAT | 07/19/2020 | | Results for this | | | | 4:03 PM | | procedure are in the | | | | PDT | | results section. | + +--------+ + + + | CK TOTAL | STAT | 07/19/2020 | | Results for this | | | | 4:03 PM | | procedure are in the | | | | PDT | | results section. | + +--------+ + + + | POC GLUCOSE (NON | Routin | 07/19/2020 | | Results for this | | ORD) | e | 1:11 PM | | procedure are in the | | | | PDT | | results section. | + +--------+ + + + | PROCALCITONIN, SERUM | Add-On | 07/19/2020 | | Results for this | | | | 4:23 AM | | procedure are in the | | | | PDT | | results section. | + +--------+ + + + | BASIC METABOLIC | REGINA | 07/19/2020 | | Results for this | | PANEL | | 4:23 AM | | procedure are in the | | | | PDT | | results section. | + +--------+ + + + | PHOSPHORUS | REGINA | 07/19/2020 | | Results for this | | | | 4:23 AM | | procedure are in the | | | | PDT | | results section. | + +--------+ + + + | MAGNESIUM | REGINA | 07/19/2020 | | Results for this | | | | 4:23 AM | | procedure are in the | | | | PDT | | results section. | + +--------+ + + + | CBC WITH | REGINA | 07/19/2020 | | Results for this | | DIFFERENTIAL | | 4:23 AM | | procedure are in the | | | | PDT | | results section. | + +--------+ + + + | CK-MB | Routin | 07/19/2020 | | Results for this | | | e | 4:22 AM | | procedure are in the | | | | PDT | | results section. | + +--------+ + + + | CK TOTAL | STAT | 07/19/2020 | | Results for this | | | | 4:22 AM | | procedure are in the | | | | PDT | | results section. | + +--------+ + + + | TROPONIN I | STAT | 07/19/2020 | | Results for this | | | | 4:22 AM | | procedure are in the | | | | PDT | | results section. | + +--------+ + + + | POC GLUCOSE (NON | Routin | 07/18/2020 | | Results for this | | ORD) | e | 10:09 PM | | procedure are in the | | | | PDT | | results section. | + +--------+ + + + | VAS UPPER EXTREMITY | Routin | 07/18/2020 | | Results for this | | VENOUS LEFT | e | 8:33 PM | | procedure are in the | | | | PDT | | results section. | + +--------+ + + + | POC RAPID STREP A | Routin | 07/18/2020 | | Results for this | | | e | 8:29 PM | | procedure are in the | | | | PDT | | results section. | + +--------+ + + + | RAPID STREP SWAB | Routin | 07/18/2020 | | Results for this | | COLLECTION | e | 8:06 PM | | procedure are in the | | | | PDT | | results section. | + +--------+ + + + | XR SHOULDER LEFT 2 + | Routin | 07/18/2020 | | Results for this | | VW | e | 7:23 PM | | procedure are in the | | | | PDT | | results section. | + +--------+ + + + | XR CHEST AP PORTABLE | Routin | 07/18/2020 | | Results for this | | | e | 7:23 PM | | procedure are in the | | | | PDT | | results section. | + +--------+ + + + | LACTIC ACID | Routin | 07/18/2020 | | Results for this | | | e | 6:44 PM | | procedure are in the | | | | PDT | | results section. | + +--------+ + + + | CULTURE, BLOOD | STAT | 07/18/2020 | | Results for this | | | | 6:43 PM | | procedure are in the | | | | PDT | | results section. | + +--------+ + + + | CULTURE, BLOOD | STAT | 07/18/2020 | | Results for this | | | | 5:38 PM | | procedure are in the | | | | PDT | | results section. | + +--------+ + + + | CK TOTAL | Routin | 07/18/2020 | | Results for this | | | e | 5:37 PM | | procedure are in the | | | | PDT | | results section. | + +--------+ + + + | PROCALCITONIN, SERUM | Routin | 07/18/2020 | | Results for this | | | e | 5:37 PM | | procedure are in the | | | | PDT | | results section. | + +--------+ + + + | PTT | Routin | 07/18/2020 | | Results for this | | | e | 5:37 PM | | procedure are in the | | | | PDT | | results section. | + +--------+ + + + | PROTIME INR | STAT | 07/18/2020 | | Results for this | | | | 5:37 PM | | procedure are in the | | | | PDT | | results section. | + +--------+ + + + | PHOSPHORUS | STAT | 07/18/2020 | | Results for this | | | | 5:37 PM | | procedure are in the | | | | PDT | | results section. | + +--------+ + + + | MAGNESIUM | STAT | 07/18/2020 | | Results for this | | | | 5:37 PM | | procedure are in the | | | | PDT | | results section. | + +--------+ + + + | CBC WITH | REGINA | 07/18/2020 | | Results for this | | DIFFERENTIAL | | 5:37 PM | | procedure are in the | | | | PDT | | results section. | + +--------+ + + + | COMPREHENSIVE | STAT | 07/18/2020 | | Results for this | | METABOLIC PANEL | | 5:37 PM | | procedure are in the | | | | PDT | | results section. | + +--------+ + + + | CK-MB | Routin | 07/18/2020 | | Results for this | | | e | 5:37 PM | | procedure are in the | | | | PDT | | results section. | + +--------+ + + + | B TYPE NATRIURETIC | Routin | 07/18/2020 | | Results for this | | PEPTIDE | e | 5:37 PM | | procedure are in the | | | | PDT | | results section. | + +--------+ + + + | TROPONIN I | Timed | 07/18/2020 | | Results for this | | | | 5:37 PM | | procedure are in the | | | | PDT | | results section. | + +--------+ + + + | URINALYSIS WITH | Routin | 07/18/2020 | | Results for this | | MICROSCOPIC IF | e | 5:10 PM | | procedure are in the | | INDICATED | | PDT | | results section. | + +--------+ + + + | CORONAVIRUS | Routin | 07/18/2020 | | Results for this | | (COVID-19) NAAT | e | 5:10 PM | | procedure are in the | | | | PDT | | results section. | + +--------+ + + + | POC GLUCOSE (NON | Routin | 07/18/2020 | | Results for this | | ORD) | e | 5:03 PM | | procedure are in the | | | | PDT | | results section. | + +--------+ + + + | ECHO COMPLETE | Routin | 07/18/2020 | | Results for this | | | e | 1:15 PM | | procedure are in the | | | | PDT | | results section. | + +--------+ + + + from Last 3 Months Results POC Glucose (07/25/2020 7:28 AM PDT)Only the most recent of 27 results within the time per iod is included. + + + + + + | Component | Value | Ref Range | Performed | Pathologist | | | | | At | Signature | + + + + + + | Glucose, | 134 (H)Comment: Testing | 65 - 99 mg/dL | [facility] | | | POC | performed at [facility] [place];[id number] | | LABORATORY | | | | [address];[place] | | | | | | [id number] | | | | + + + + + + + + | Specimen | + + | | + + + + + + + | Performing | Address | City/State/Zipcode | Phone Number | | Organization | | | | + + + + + | [facility] | [address] | [place] [address] | [phone] | + + + + + Protime INR (07/25/2020 5:28 AM PDT)Only the most recent of 8 results within the time toyin od is included. + + + + + + | Component | Value | Ref Range | Performed | Pathologist | | | | | At | Signature | + + + + + + | INR | 3.6Comment: REFERENCE | | [facility] | | | | RANGE:0.9 - 1.2 | | LABORATORY | | | | NON-ANTICOAGULATED2.0 | | [...] | | | | | performed at [facility] | | | | | | [facility];[place], [place] | | | | | | [address] | | | | + + + + + + + + | Specimen | + + | Blood | + + + + + + + | Performing | Address | City/State/Zipcode | Phone Number | | Organization | | | | + + + + + | [facility] | [address] | [place] [address] | [phone] | + + + + + CBC with Differential (07/25/2020 5:28 AM PDT)Only the most recent of 8 results within the time period is included. + + + + + + | Component | Value | Ref Range | Performed | Pathologist | | | | | At | Signature | + + + + + + | WBC | 11.24 (H) | 3.80 - 11.00 | [facility] | | | | | K/uL | LABORATORY | | + + + + + + | Red Blood | 4.36 | 4.20 - 5.70 | [facility] | | | Cells | | M/uL | LABORATORY | | + + + + + + | Hemoglobin | 12.3 (L) | 13.2 - 17.0 | [facility] | | | | | g/dL | LABORATORY | | + + + + + + | Hematocrit | 36.5 (L) | 39.0 - 50.0 % | [facility] | | | | | | LABORATORY | | + + + + + + | MCV | 83.7 | 80.0 - 100.0 fl | [facility] | | | | | | LABORATORY | | + + + + + + | MCH | 28.2 | 27.0 - 34.0 pg | [facility] | | | | | | LABORATORY | | + + + + + + | MCHC | 33.7 | 32.0 - 35.5 | [facility] | | | | | g/dL | LABORATORY | | + + + + + + | RDW-SD | 49.8 | 37 - 53 fl | [facility] | | | | | | LABORATORY | | + + + + + + | Platelet | 251 | 150 - 400 K/uL | [facility] | | | Count | | | LABORATORY | | + + + + + + | MPV | 11.4Comment: NO NORMAL | fl | [facility] | | | | RANGE ESTABLISHED | | LABORATORY | | + + + + + + | Diff Type | MANUAL | | [facility] | | | | | | LABORATORY | | + + + + + + | % Segmented | 77 | % | [facility] | | | | | | LABORATORY | | | Neutrophils | | | | | + + + + + + | % Bands | 3 | % | [facility] | | | | | | LABORATORY | | + + + + + + | % | 11 | % | [facility] | | | Lymphocytes | | | LABORATORY | | + + + + + + | % Monocytes | 9 | % | [facility] | | | | | | LABORATORY | | + + + + + + | Neutrophils | 8.65 (H) | 1.90 - 7.40 | [facility] | | | , Absolute | | K/uL | LABORATORY | | + + + + + + | Absolute | 0.34 (H) | 0.00 - 0.20 | [facility] | | | Band | | K/uL | LABORATORY | | | Neutrophils | | | | | + + + + + + | Absolute | 1.24 | 1.00 - 3.90 | [facility] | | | Lymphocytes | | K/uL | LABORATORY | | + + + + + + | Absolute | 1.01 (H) | 0.00 - 0.80 | [facility] | | | Monocytes | | K/uL | LABORATORY | | + + + + + + | RBC | NORMAL RBC MORPHComment: | | [facility] | | | Morphology | Testing performed at | | LABORATORY | | | | [facility], [address] [facility] | | | | | | [place], [place] | | | | | | [address] | | | | + + + + + + + + | Specimen | + + | Blood | + + + + + + + | Performing | Address | City/State/Zipcode | Phone Number | | Organization | | | | + + + + + | [facility] | [address] | [place] [address] | [phone] | + + + + + Comprehensive Metabolic Panel (07/25/2020 5:28 AM PDT)Only the most recent of 2 results wi thin the time period is included. + + + + + + | Component | Value | Ref Range | Performed | Pathologist | | | | | At | Signature | + + + + + + | Na | 141 | 135 - 145 | [facility] | | | | | mmol/L | LABORATORY | | + + + + + + | K | 4.3 | 3.5 - 4.9 | [facility] | | | | | mmol/L | LABORATORY | | + + + + + + | Cl | 108 | 99 - 109 mmol/L | [facility] | | | | | | LABORATORY | | + + + + + + | CO2 | 27 | 23 - 32 mmol/L | [facility] | | | | | | LABORATORY | | + + + + + + | Anion Gap | 10 | 5 - 20 mmol/L | [facility] | | | | | | LABORATORY | | + + + + + + | Glucose | 148 (H) | 65 - 99 mg/dL | [facility] | | | | | | LABORATORY | | + + + + + + | BUN | 18 | 8 - 25 mg/dL | [facility] | | | | | | LABORATORY | | + + + + + + | Creatinine | 1.60 (H) | 0.70 - 1.30 | [facility] | | | | | mg/dL | LABORATORY | | + + + + + + | BUN/Creatin | 11 | | [facility] | | | ine Ratio | | | LABORATORY | | + + + + + + | Calcium | 7.7 (L) | 8.5 - 10.5 | [facility] | | | | | mg/dL | LABORATORY | | + + + + + + | Protein, | 6.3 | 6.3 - 8.2 g/dL | [facility] | | | Total | | | LABORATORY | | + + + + + + | Albumin | 1.8 (L) | 3.3 - 4.8 g/dL | [facility] | | | | | | LABORATORY | | + + + + + + | Globulin | 4.5 | 1.3 - 4.9 g/dL | [facility] | | | | | | LABORATORY | | + + + + + + | A/G Ratio | 0.4 (L) | 1.0 - 2.4 | [facility] | | | | | | LABORATORY | | + + + + + + | BILIRUBIN, | 1.2 | 0.1 - 1.5 mg/dL | [facility] | | | TOTAL | | | LABORATORY | | + + + + + + | ALK PHOS | 36 | 35 - 115 U/L | [facility] | | | | | | LABORATORY | | + + + + + + | AST | 55 (H) | 10 - 45 U/L | [facility] | | | | | | LABORATORY | | + + + + + + | ALT | 40 | 10 - 65 U/L | [facility] | | | | | | LABORATORY | | + + + + + + | Estimated | 42 (L)Comment: GFR <60: | >60 | [facility] | | | GFR | CHRONIC KIDNEY DISEASE, | mL/min/1.73m2 | LABORATORY | | | | IF FOUND OVER A 3 MONTH | | | | | | PERIOD.GFR <15: KIDNEY | | | | | | FAILURE.FOR | | | | | | AMERICANS, MULTIPLY THE | | | | | | CALCULATED GFR BY | | | | | | 1.210.This eGFR is | | | | | | calculated using the | | | | | | MDRD [facility] traceable | | | | | | equation.Testing | | | | | | performed at [facility], [address] | | | | | | [facility], | | | | | | [place] [address] | | | | + + + + + + + + | Specimen | + + | Blood | + + + + + + + | Performing | Address | City/State/Zipcode | Phone Number | | Organization | | | | + + + + + | [facility] | [address] | [place] [address] | [phone] | + + + + + Basic Metabolic Panel (07/24/2020 6:06 AM PDT)Only the most recent of 6 results within the time period is included. + + + + + + | Component | Value | Ref Range | Performed | Pathologist | | | | | At | Signature | + + + + + + | Na | 139 | 135 - 145 | [facility] | | | | | mmol/L | LABORATORY | | + + + + + + | K | 4.3 | 3.5 - 4.9 | [facility] | | | | | mmol/L | LABORATORY | | + + + + + + | Cl | 108 | 99 - 109 mmol/L | [facility] | | | | | | LABORATORY | | + + + + + + | CO2 | 27 | 23 - 32 mmol/L | [facility] | | | | | | LABORATORY | | + + + + + + | Anion Gap | 8 | 5 - 20 mmol/L | [facility] | | | | | | LABORATORY | | + + + + + + | Glucose | 141 (H) | 65 - 99 mg/dL | [facility] | | | | | | LABORATORY | | + + + + + + | BUN | 14 | 8 - 25 mg/dL | [facility] | | | | | | LABORATORY | | + + + + + + | Creatinine | 1.40 (H) | 0.70 - 1.30 | [facility] | | | | | mg/dL | LABORATORY | | + + + + + + | BUN/Creatin | 10 | | [facility] | | | ine Ratio | | | LABORATORY | | + + + + + + | Calcium | 7.8 (L) | 8.5 - 10.5 | [facility] | | | | | mg/dL | LABORATORY | | + + + + + + | Estimated | 49 (L)Comment: GFR <60: | >60 | [facility] | | | GFR | CHRONIC KIDNEY DISEASE, | mL/min/1.73m2 | LABORATORY | | | | IF FOUND OVER A 3 MONTH | | | | | | PERIOD.GFR <15: KIDNEY | | | | | | FAILURE.FOR | | | | | | AMERICANS, MULTIPLY THE | | | | | | CALCULATED GFR BY | | | | | | 1.210.This eGFR is | | | | | | calculated using the | | | | | | MDRD [facility] traceable | | | | | | equation.Testing | | | | | | performed at [facility], [address] | | | | | | [facility], | | | | | | [place] [address] | | | | + + + + + + + + | Specimen | + + | Blood | + + + + + + + | Performing | Address | City/State/Zipcode | Phone Number | | Organization | | | | + + + + + | [facility] | [address] | [place] [address] | [phone] | + + + + + Magnesium (07/23/2020 5:29 AM PDT)Only the most recent of 6 results within the time period is included. + + + + + + | Component | Value | Ref Range | Performed | Pathologist | | | | | At | Signature | + + + + + + | Magnesium | 2.0Comment: Testing | 1.7 - 2.4 mg/dL | [facility] | | | | performed at [facility];[address] | | LABORATORY | | | | [facility];[place], [place] | | | | | | [address] | | | | + + + + + + + + | Specimen | + + | Blood | + + + + + + + | Performing | Address | City/State/Zipcode | Phone Number | | Organization | | | | + + + + + | [facility] | [address] | [place] [address] | [phone] | + + + + + CK Total (07/23/2020 5:29 AM PDT)Only the most recent of 7 results within the time period is included. + + + + + + | Component | Value | Ref Range | Performed | Pathologist | | | | | At | Signature | + + + + + + | CK TOTAL | 792 (H)Comment: Testing | 55 - 400 U/L | [facility] | | | | performed at [facility];[address] | LABORAT[address] | | | | [address];[place], [place] | | | | | | [address] | | | | + + + + + + + + | Specimen | + + | Blood | + + + + + + + | Performing | Address | City/State/Zipcode | Phone Number | | Organization | | | | + + + + + | [facility] | [address] [facility] | [place] [address] | [phone] | + + + + + FL Video Swallow w Speech (07/21/2020 12:17 PM PDT) + + | Specimen | + + | | + + + + + | Narrative | Performed At | + + + | This exam has been auto-finalized and the interpretation may exist | [facility] | | elsewhere in the chart. | | + + + + +---------+ + + | Performing | Address | City/State/Zipcode | Phone Number | | Organization | | | | + +---------+ + + | [facility] | | | | + +---------+ + + Lipid Panel (07/20/2020 5:53 AM PDT) + + + + + + | Component | Value | Ref Range | Performed | Pathologist | | | | | At | Signature | + + + + + + | Cholesterol | 94 | <200 mg/dL | [facility] | | | | | | LABORATORY | | + + + + + + | Triglycerid | 184 (H) | <150 mg/dL | [facility] | | | es | | | LABORATORY | | + + + + + + | HDL | 19 (L) | >40 mg/dL | [facility] | | | | | | LABORATORY | | + + + + + + | LDL, | 38Comment: Testing | <100 mg/dL | [facility] | | | Calculated | performed at [facility], [address] | | LABORATORY | | | | [address], | | | | | | [place] [address] | | | | + + + + + + + + | Specimen | + + | Blood | + + + + + + + | Performing | Address | City/State/Zipcode | Phone Number | | Organization | | | | + + + + + | [facility] | [address] | [place] [address] | [phone] | + + + + + TSH, Reflex Free T4 (07/20/2020 5:53 AM PDT) + + + + + + | Component | Value | Ref Range | Performed | Pathologist | | | | | At | Signature | + + + + + + | TSH | 0.372 (L) | 0.450 - 5.100 | [facility] | | | | | uIU/mL | LABORATORY | | + + + + + + + + | Specimen | + + | Blood | + + + + + + + | Performing | Address | City/State/Zipcode | Phone Number | | Organization | | | | + + + + + | [facility] | [address] | [place] [address] | [phone] | + + + + + T4, Free (07/20/2020 5:53 AM PDT) + + + + + + | Component | Value | Ref Range | Performed | Pathologist | | | | | At | Signature | + + + + + + | FT4 | 1.3Comment: Testing | 0.7 - 1.5 ng/dL | [facility] | | | | performed at [facility];[address] | | LABORATORY | | | | [address];[place] | | | | | | [address] | | | | + + + + + + + + | Specimen | + + | | + + + + + + + | Performing | Address | City/State/Zipcode | Phone Number | | Organization | | | | + + + + + | [facility] | [address] | [place] [address] | [phone] | + + + + + ECG 12 lead (07/19/2020 4:17 PM PDT) + + + + + + | Component | Value | Ref Range | Performed | Pathologist | | | | | At | Signature | + + + + + + | VENTRICULAR | 117 | BPM | [facility] | | | RATE EKG | | | | | + + + + + + | ATRIAL RATE | 117 | BPM | [facility] | | + + + + + + | P-R | 176 | ms | [facility] | | | INTERVAL | | | | | + + + + + + | QRS | 154 | ms | [facility] | | | DURATION | | | | | + + + + + + | Q-T | 350 | ms | [facility] | | | INTERVAL | | | | | + + + + + + | Q-T | 488 | ms | [facility] | | | INTERVAL | | | | | | (CORRECTED) | | | | | + + + + + + | P WAVE AXIS | -18 | degrees | [facility] | | + + + + + + | QRS AXIS | -108 | degrees | [facility] | | + + + + + + | T AXIS | 31 | degrees | [facility] | | + + + + + + | INTERPRETAT | Sinus tachycardiaRight | | [facility] | | | ION TEXT | bundle branch | | | | | | blockAbnormal ECGWhen | | | | | | compared with ECG of | | | | | | 25-NOV-2016 10:16,No | | | | | | significant change since | | | | | | previous ECG Confirmed | | | | | | by MANUEL MAIN MD | | | | | | ([id number]) on 07/21/2020 | | | | | | 10:39:46 PM | | | | + + + + + + + + | Specimen | + + | | + + + + + | Narrative | Performed At | + + + | | | + + + + +---------+ + + | Performing | Address | City/State/Zipcode | Phone Number | | Organization | | | | + +---------+ + + | [facility] | | | | + +---------+ + + TSH (07/19/2020 4:03 PM PDT) + + + + + + | Component | Value | Ref Range | Performed | Pathologist | | | | | At | Signature | + + + + + + | TSH | 0.249 (L)Comment: | 0.450 - 5.100 | [facility] | | | | Testing performed at | uIU/mL | LABORATORY | | | | [facility];[address] [facility] | | | | | | [address];[place] [address] | | | | + + + + + + + + | Specimen | + + | | + + + + + + + | Performing | Address | City/State/Zipcode | Phone Number | | Organization | | | | + + + + + | [facility] | [address] | [place] [address] | [phone] | + + + + + Procalcitonin (07/19/2020 4:23 AM PDT)Only the most recent of 2 results within the time ajay espinal is included. + + + + + + | Component | Value | Ref Range | Performed | Pathologist | | | | | At | Signature | + + + + + + | PROCALCITON | 1.38 (H)Comment: | <0.5 ng/mL | [facility] | | | IN | INTERPRETIVE | | LABORATORY | | | | INFORMATION: | | | | | | PROCALCITONIN PCT <= | | | | | | 0.5 ng/mL: Low risk | | | | | | for progression to | | | | | | severe systemic | | | | | | bacterial infection | | | | | | (severe sepsis/septic | | | | | | shock). Does not | | | | | | exclude an infection, | | | | | | because localized | | | | | | infections may be | | | | | | associated with such low | | | | | | levels. If PCT is | | | | | | measured very early | | | | | | after bacterial | | | | | | challenge (usually <6 | | | | | | hours), results may | | | | | | still be low and | | | | | | should re-assess PCT | | | | | | 6-24 hours later. PCT | | | | | | >0.5 and <= 2 ng/mL: | | | | | | Moderate risk for | | | | | | progression to severe | | | | | | systemic infection | | | | | | (severe sepsis/septic | | | | | | shock). Other | | | | | | conditions are known | | | | | | to elevate PCT, patient | | | | | | should be closely | | | | | | monitored both | | | | | | clinically and by | | | | | | re-assessing PCT | | | | | | within 6-24 hours. PCT > | | | | | | 2 ng/mL: High | | | | | | likelihood for | | | | | | progression to severe | | | | | | systemic bacterial | | | | | | infection (severe | | | | | | sepsis/septic shock). | | | | | | PCT >= 10 ng/mL: | | | | | | High likelihood of | | | | | | severe sepsis or septic | | | | | | shock.Testing performed | | | | | | at [facility];[address] | | | | | [address];[place] [address] | | | | + + + + + + + + | Specimen | + + | Blood | + + + + + + + | Performing | Address | City/State/Zipcode | Phone Number | | Organization | | | | + + + + + | [facility] | [address] | [place] [address] | [phone] | + + + + + Phosphorus (07/19/2020 4:23 AM PDT)Only the most recent of 2 results within the time elen smith is included. + + + + + + | Component | Value | Ref Range | Performed | Pathologist | | | | | At | Signature | + + + + + + | Phosphorus | 2.4Comment: Testing | 2.3 - 4.8 mg/dL | [facility] | | | | performed at [facility];[address] | | LABORATORY | | | | [address];[place] | | | | | | [address] | | | | + + + + + + + + | Specimen | + + | Blood | + + + + + + + | Performing | Address | City/State/Zipcode | Phone Number | | Organization | | | | + + + + + | [facility] | [address] | [place] [address] | [phone] | + + + + + Troponin I (07/19/2020 4:22 AM PDT)Only the most recent of 2 results within the time elen smith is included. + + + + + + | Component | Value | Ref Range | Performed | Pathologist | | | | | At | Signature | + + + + + + | Troponin I | 0.815 ()Comment: | 0.00 - 0.04 | [facility] | | | | 0.04 ng/mL or less | ng/mL | LABORATORY | | | | Negative, repeat | | | | | | testing in four to six | | | | | | hour ifclinically | | | | | | indicted0.05 to 0.77 | | | | | | ng/mL | | | | | | Suspicious for | | | | | | myocardial injury. | | | | | | Serial measurementsmay | | | | | | be necessary to confirm | | | | | | or exclude the diagnosis | | | | | | of acute | | | | | | coronarysyndrome. Repeat | | | | | | testing in four to six | | | | | | hours if indicated.0.78 | | | | | | or greater ng/mL | | | | | | Consistent with | | | | | | myocardial injury. | | | | | | Clinical andlaboratory | | | | | | correlation recommended. | | | | | | CALLED TO 10RP HR DIRECTOR | | | | | | GITA Overton AT 0524 BY | | | | | | MWREAD BACK RESULTS | | | | | | VERIFIEDTesting | | | | | | performed at [facility];[address] | | | | | | [address] [facility];[place], [place] | | | | | | [address] | | | | + + + + + + + + | Specimen | + + | Blood | + + + + + + + | Performing | Address | City/State/Zipcode | Phone Number | | Organization | | | | + + + + + | [facility] | [address] | [place] [address] | [phone] | + + + + + CK-MB (07/19/2020 4:22 AM PDT)Only the most recent of 2 results within the time period is included. + + + + + + | Component | Value | Ref Range | Performed | Pathologist | | | | | At | Signature | + + + + + + | CK-MB | 2.6 | 0.5 - 3.6 ng/mL | [facility] | | | | | | LABORATORY | | + + + + + + | CK Index | UNABLE TO | | [facility] | | | | CALCULATEComment: | | LABORATORY | | | | Testing performed at | | | | | | [facility];[address];[place] [address] | | | | + + + + + + + + | Specimen | + + | | + + + + + + + | Performing | Address | City/State/Zipcode | Phone Number | | Organization | | | | + + + + + | [facility] | [address] | [place] [address] | [phone] | + + + + + VAS Upper Extremity Venous Left (07/18/2020 8:33 PM PDT) + + | Specimen | + + | | + + + + + | Impressions | Performed At | + + + | Left upper extremity negative for DVT. Thrombosis of the distal | [facility] | | cephalic vein in the forearm. Final Report Signed by: | | | Negro Palmer, Heladio Sign Date/Time: 07/27/2020 1:50 PM | | + + + + + + | Narrative | Performed At | + + + | ULTRASOUND VENOUS DUPLEX, LEFT UPPER EXTREMITY CLINICAL | [facility] | | INFORMATION: Swelling. Rule out DVT. COMPARISON: XR SHOULDER | | | LEFT 2 + VW (07/18/2020); PROCEDURE: Duplex and color Doppler | | | evaluation of the veins of the upper extremity including compression, | | | color Doppler and venous spectral Doppler waveform analysis. | | | FINDINGS: The internal jugular and subclavian veins are patent with | | | normal color Doppler and venous waveform. Axillary, brachial, and | | | basilic veins are all patent and compressible. No intraluminal | | | filling defects. Distal cephalic vein in the left forearm is | | | thrombosed. | | + + + + + | Procedure Note | + + | [facility], [id number] - 07/27/2020 1:53 PM PDT | | ULTRASOUND VENOUS DUPLEX, LEFT UPPER EXTREMITY | | | | CLINICAL INFORMATION: | | Swelling. Rule out DVT. | | | | COMPARISON: | | XR SHOULDER LEFT 2 + VW (07/18/2020); | | | | PROCEDURE: | | Duplex and color Doppler evaluation of the veins of the upper extremity | | including compression, color Doppler and venous spectral Doppler | | waveform analysis. | | | | FINDINGS: | | The internal jugular and subclavian veins are patent with normal color | | Doppler and venous waveform. Axillary, brachial, and basilic veins are | | all patent and compressible. No intraluminal filling defects. Distal | | cephalic vein in the left forearm is thrombosed. | | | | IMPRESSION: | | Left upper extremity negative for DVT. | | Thrombosis of the distal cephalic vein in the forearm. | | | | | | | | Final Report Signed by: Negro Palmer Chet | | Sign Date/Time: 07/27/2020 1:50 PM | + + + +---------+ + + | Performing | Address | City/State/Zipcode | Phone Number | | Organization | | | | + +---------+ + + | [facility] | | | | + +---------+ + + POC RAPID STREP A (07/18/2020 8:29 PM PDT) + + + + + + | Component | Value | Ref Range | Performed | Pathologist | | | | | At | Signature | + + + + + + | Group A | NEGATIVEComment: Testing | NEG | [facility] | | | Strep, DNA | performed by Molecular | | LABORATORY | | | | MethodologyA reflex | | | | | | culture for negative | | | | | | results is no longer | | | | | | being performed. This | | | | | | hasbeen determined to | | | | | | not be necessary or cost | | | | | | effective due to a | | | | | | negativepredictive value | | | | | | of nearly 100% using | | | | | | this test alone. | | | | | | Questions may | | | | | | bedirected to the | | | | | | laboratory Medical | | | | | | Director.Testing | | | | | | performed at [facility] | | | | | | [address];[place], [place] | | | | | | [address] | | | | + + + + + + + + | Specimen | + + | | + + + + + + + | Performing | Address | City/State/Zipcode | Phone Number | | Organization | | | | + + + + + | [facility] | [address] | [place] [address] | [phone] | + + + + + RAPID STREP SWAB COLLECTION (07/18/2020 8:06 PM PDT) + + + + + + | Component | Value | Ref Range | Performed | Pathologist | | | | | At | Signature | + + + + + + | Collection | THROATComment: Testing | | [facility] | | | | performed at [facility];[address] | | LABORATORY | | | | [address];[place] | | | | | | [address] | | | | + + + + + + + + | Specimen | + + | | + + + + + + + | Performing | Address | City/State/Zipcode | Phone Number | | Organization | | | | + + + + + | [facility] | [address] | [place] [address] | [phone] | + + + + + XR Shoulder Left 2 + Vw (07/18/2020 7:23 PM PDT) + + | Specimen | + + | | + + + + + | Impressions | Performed At | + + + | No evidence for fracture. Moderate acromioclavicular joint | [facility] | | degenerative change. Final Report Signed by: Negro Palmer, | | | Heladio Sign Date/Time: 07/18/2020 7:32 PM | | + + + + + + | Narrative | Performed At | + + + | SHOULDER THREE VIEWS. CLINICAL INFORMATION: Left shoulder | [facility] | | pain. COMPARISON: No comparisons FINDINGS: Moderate | | | acromioclavicular joint degenerative change. Osseous structures are | | | well mineralized without evidence of fracture or dislocation. | | + + + + + | Procedure Note | + + | [place], [id number] - 07/18/2020 7:35 PM PDT | | SHOULDER THREE VIEWS. | | | | CLINICAL INFORMATION: | | Left shoulder pain. | | | | COMPARISON: | | No comparisons | | | | FINDINGS: | | Moderate acromioclavicular joint degenerative change. Osseous | | structures are well mineralized without evidence of fracture or | | dislocation. | | | | IMPRESSION: | | No evidence for fracture. | | Moderate acromioclavicular joint degenerative change. | | | | | | | | Final Report Signed by: Negro Palmer Chet | | Sign Date/Time: 07/18/2020 7:32 PM | + + + +---------+ + + | Performing | Address | City/State/Zipcode | Phone Number | | Organization | | | | + +---------+ + + | [facility] | | | | + +---------+ + + XR Chest AP Portable (07/18/2020 7:23 PM PDT) + + | Specimen | + + | | + + + + + | Impressions | Performed At | + + + | Minimal linear bibasilar opacities to likely resent atelectasis | [facility] | | and/or airspace disease. Question tiny bilateral pleural effusions. | | | Final Report Signed by: Negro Palmer Chet Sign Date/Time: | | | 07/18/2020 7:33 PM | | + + + + + + | Narrative | Performed At | + + + | CHEST ONE VIEW. CLINICAL INFORMATION: COVID-19. | [facility] | | COMPARISON: ECHO OUTSIDE INTERPRETATION dated 08/06/2017; XR CHEST 2 | | | VIEW dated 01/24/2017; XR CHEST 2 VIEW dated 10/25/2016 FINDINGS: | | | The heart is mildly enlarged. Midline sternotomy wires are intact. | | | Slight blunting of the costophrenic angles which may represent small | | | pleural effusions. Minimal bibasilar opacities to likely resent | | | atelectasis and/or airspace disease. Dual lead transvenous pacemaker | | | that appears in appropriate position. No pneumothorax. | | + + + + + | Procedure Note | + + | [place], [id number] - 07/18/2020 7:37 PM PDT | | CHEST ONE VIEW. | | | | CLINICAL INFORMATION: | | COVID-19. | | | | COMPARISON: | | ECHO OUTSIDE INTERPRETATION dated 08/06/2017; XR CHEST 2 VIEW dated | | 01/24/2017; XR CHEST 2 VIEW dated 10/25/2016 | | | | FINDINGS: | | The heart is mildly enlarged. Midline sternotomy wires are intact. | | Slight blunting of the costophrenic angles which may represent small | | pleural effusions. Minimal bibasilar opacities to likely resent | | atelectasis and/or airspace disease. Dual lead transvenous pacemaker | | that appears in appropriate position. No pneumothorax. | | | | IMPRESSION: | | Minimal linear bibasilar opacities to likely resent atelectasis and/or | | airspace disease. | | Question tiny bilateral pleural effusions. | | | | | | | | Final Report Signed by: Negro Palmer Chet | | Sign Date/Time: 07/18/2020 7:33 PM | + + + +---------+ + + | Performing | Address | City/State/Zipcode | Phone Number | | Organization | | | | + +---------+ + + | [facility] | | | | + +---------+ + + Lactic Acid (07/18/2020 6:44 PM PDT) + + + + + + | Component | Value | Ref Range | Performed | Pathologist | | | | | At | Signature | + + + + + + | Lactate, | 2.1 (H)Comment: CALLED | 0.4 - 2.0 | [facility] | | | Serum | NURSING UNITCASSIE AT | mmol/L | LABORATORY | | | | [address] LMCTesting | | | | | | performed at [facility];[address] | | | | | | [address];[place], [place] | | | | | | [address] | | | | + + + + + + + + | Specimen | + + | Blood | + + + + + + + | Performing | Address | City/State/Zipcode | Phone Number | | Organization | | | | + + + + + | [facility] | [address] | [place] [address] | [phone] | + + + + + Culture, Blood (07/18/2020 6:43 PM PDT)Only the most recent of 2 results within the time loren blanchard is included. + + + + + + | Component | Value | Ref Range | Performed | Pathologist | | | | | At | Signature | + + + + + + | Special | L.HAND | | [facility] | | | Requests | | | LABORATORY | | + + + + + + | Special | Testing performed at | | [facility] | | | Requests | [facility];[address] | | LABORATORY | | | | [address];[place] [address] | | | | + + + + + + | Culture | NO GROWTH 6 DAYS | | [facility] | | | | | | LABORATORY | | + + + + + + | Culture | Testing performed at | | [facility] | | | | TCL, [address] | | LABORATORY | | | | [place] | | | | | | [id number]: Testing | | | | | | performed at [facility], [address] | | | | | | [place] | | | | | | [address] | | | | + + + + + + + + | Specimen | + + | Blood - Peripheral | | blood specimen | | (specimen) | + + + + + + + | Performing | Address | City/State/Zipcode | Phone Number | | Organization | | | | + + + + + | [facility] | [address] | [place] [address] | [phone] | + + + + + PTT (07/18/2020 5:37 PM PDT) + + + + + + | Component | Value | Ref Range | Performed | Pathologist | | | | | At | Signature | + + + + + + | PTT | 54 (H)Comment: Testing | 23 - 32 seconds | [facility] | | | | performed at [facility];[address] | | LABORATORY | | | | [address];[place] | | | | | | [address] | | | | + + + + + + + + | Specimen | + + | | + + + + + + + | Performing | Address | City/State/Zipcode | Phone Number | | Organization | | | | + + + + + | [facility] | [address] | [place] [address] | [phone] | + + + + + B Type Natriuretic Peptide (07/18/2020 5:37 PM PDT) + + + + + + | Component | Value | Ref Range | Performed | Pathologist | | | | | At | Signature | + + + + + + | BNP | 772.50 (H)Comment: | 0 - 100 pg/mL | [facility] | | | | Testing performed at | | LABORATORY | | | | [facility];[address] | | | | [address];[place] [address] | | | | + + + + + + + + | Specimen | + + | Blood | + + + + + + + | Performing | Address | City/State/Zipcode | Phone Number | | Organization | | | | + + + + + | [facility] | [address] | [place] [address] | [phone] | + + + + + Coronavirus (COVID-19) NAAT (07/18/2020 5:10 PM PDT) + + + + + + | Component | Value | Ref Range | Performed | Pathologist | | | | | At | Signature | + + + + + + | SARS-CoV-2, | POSITIVE (A)Comment: | NEG | [facility] | | | NAAT | This test was developed | | LABORATORY | | | (COVID-19) | and its performance | | | | | | characteristics | | | | | | determined byCepheid. It | | | | | | has not been cleared or | | | | | | approved by the [place] FDA. | | | | | | This test has | | | | | | beenauthorized by FDA | | | | | | under an Emergency Use | | | | | | Authorization (EUA). | | | | | | Clinicians shouldbe | | | | | | advised to consider a | | | | | | patients signs, | | | | | | symptoms, history, and | | | | | | results ofother | | | | | | diagnostic tests when | | | | | | interpreting | | | | | | results.Testing | | | | | | performed at [facility];[address] | | | | | | [facility];[place], [place] | | | | | | [address] | | | | + + + + + + + + | Specimen | + + | Tissue - Entire | | nasopharynx (body | | structure) | + + + + + + + | Performing | Address | City/State/Zipcode | Phone Number | | Organization | | | | + + + + + | [facility] | [address] | [place] [address] | [phone] | + + + + + Urinalysis with Microscopic if Indicated (07/18/2020 5:10 PM PDT) + + + + + + | Component | Value | Ref Range | Performed | Pathologist | | | | | At | Signature | + + + + + + | Color, UA | YELLOW | | [facility] | | | | | | LABORATORY | | + + + + + + | Clarity, | CLEAR | | [facility] | | | Urine | | | LABORATORY | | + + + + + + | Specific | 1.012 | 1.002 - 1.030 | [facility] | | | [place], | | | LABORATORY | | | Urine | | | | | + + + + + + | Leukocyte | TRACE (A) | NEG | [facility] | | | esterase, | | | LABORATORY | | | UA | | | | | + + + + + + | Nitrite, UA | NEGATIVE | NEG | [facility] | | | | | | LABORATORY | | + + + + + + | Urobilinoge | 4.0 (H) | <1.6 mg/dL | [facility] | | | n, Ur | | | LABORATORY | | + + + + + + | Protein, | 100 (A) | NEG mg/dL | [facility] | | | Urine | | | LABORATORY | | | (mg/dL) | | | | | + + + + + + | pH, Urine | 7.0 | 5.0 - 8.0 | [facility] | | | | | | LABORATORY | | + + + + + + | Blood, UA | MODERATE (A) | NEG | [facility] | | | | | | LABORATORY | | + + + + + + | Ketones, UA | NEGATIVE | NEG mg/dL | [facility] | | | | | | LABORATORY | | + + + + + + | Bilirubin, | NEGATIVE | NEG | [facility] | | | UA | | | LABORATORY | | + + + + + + | Glucose, Ur | NEGATIVE | NEG mg/dL | [facility] | | | | | | LABORATORY | | + + + + + + | WBC UA | 11-15 | 0 - 5 /hpf | [facility] | | | | | | LABORATORY | | + + + + + + | Red Blood | 6-10 | 0 - 2 /hpf | [facility] | | | Cells, | | | LABORATORY | | | Urine | | | | | + + + + + + | Bacteria, | 2+ (A) | NONE | [facility] | | | Urine | | | LABORATORY | | + + + + + + | Squamous | NONE SEENComment: | /lpf | [facility] | | | Epithelial | Testing performed at | | LABORATORY | | | Cells, | [facility];[address] | | | | Urine | [address];[place] [address] | | | | + + + + + + + + | Specimen | + + | Urine - Urine | | specimen obtained by | | clean catch | | procedure (specimen) | + + + + + + + | Performing | Address | City/State/Zipcode | Phone Number | | Organization | | | | + + + + + | [facility] | [address] | [place] [address] | [phone] | + + + + + ECHO Complete (07/18/2020 1:15 PM PDT) + + + | Narrative | Performed At | + + + | ECHO DONE AT | | | [facility] | | + + + from Last 3 Months Additional Health Concerns + + + + + | Infection | Onset Date | Last Indicated | Resolved Time | + + + + + | COVID-19 | 07/18/2020 | 07/18/2020 | | + + + + + Insurance + +--------+ +--------+ +---------+--------+ | Payer | Benefi | Subscriber | Effect | Phone | Address | Type | | | t Plan | ID | kai | | | | | | / | | Dates | | | | | | Group | | | | | | + +--------+ +--------+ +---------+--------+ | CIGNA | CIGNA | [id number] | 10/27/19 | [phone] | | Indemn | | | MDCR | | 15-Pre | 1 | | ity | | | SUPPLE | | sent | | | | | | MENT | | | | | | | | SOLUTI | | | | | | | | ONS | | | | | | + +--------+ +--------+ +---------+--------+ | MEDICARE | MEDICA | [id number] | 01/26/20 | [phone] | | Medica | | | RE | | 15-Pre | 5 | | re | | | PART A | | sent | | | | | | AND B | | | | | | + +--------+ +--------+ +---------+--------+ | MEDICARE | MEDICA | [id number] | 04/26/20 | [phone] | | Medica | | | RE | | 03-Pre | 5 | | re | | | PART A | | sent | | | | | | AND B | | | | | | + +--------+ +--------+ +---------+--------+ | CIGNA | CIGNA | [id number] | 10/27/19 | [phone] | | Indemn | | | MDCR | | 15-Pre | 1 | | ity | | | SUPPLE | | sent | | | | | | MENT | | | | | | | | SOLUTI | | | | | | | | ONS | | | | | | + +--------+ +--------+ +---------+--------+ + +--------+ +--------+ + + | Guarantor Name | Accoun | Relation to | Date | Phone | Billing Address | | | t Type | Patient | of | | | | | | | | | | + +--------+ +--------+ + + | Duane Mas | Person | Self | [birth year] | | [address] | | | al/Fam | | 1940 | [phone] | [place] [address] | | | afshan | | | 4 (Home) | | + +--------+ +--------+ + + | Duane Mas | Person | Self | [birth year] | | [address] | | | al/Fam | | 1940 | [phone] | [place] [address] | | | afshan | | | 4 (Home) | | + +--------+ +--------+ + + Advance Directives + + + + + | Type | Date Recorded | Patient | Explanation | | | | Piping Blocker | | + + + + + | Power of | | | | | Tax Director | | | | + + + + + | Advance | 07/31/2017 10:59 | | | | Directive | AM | | | + + + + + + + + + + | Code Status | Date | Date | Comments | | | Activated | Inactivated | | + + + + + | Full Code | 07/18/2020 | 07/25/2020 | | | | 3:58 PM | 3:09 PM | | + + + + +
--- OUTSIDE RECORDS SUMMARY | ~2020-08-01 | XMS | Encounter Summary ---
Demographics + + + | Address | [address] | | | [place] [address] | + + + | Home Phone | | + + + | Preferred Language | Unknown | + + + | Marital Status | | + + + | Pentecostal Affiliation | 1077 | + + + | Race | White | + + + | Ethnic Group | Not or | + + + Author + + + | Author | [facility] | | | and [place] | + + + | Organization | [facility] | | | [...] Team Providers + +------+ + | Care County Coroner Name | Role | Phone | + +------+ + | Erin Forrester MD | PCP | | + +------+ + Reason for Visit + +--------+ + | Reason | Onset | Comments | | | Date | | + +--------+ + | Patient Concerns | 09/29/ | | | | 2018 | | + +--------+ + Encounter Details +--------+ + + + + | Date | Type | Department | Care Team | Description | +--------+ + + + + | 09/29/ | Telephone | [facility] | Kristie De Los Santos ANP | Patient Concerns | | 2019 | | CARDIOLOGY [facility] | [address] | | | | | [address] | [place], [place] | | | | | [place], [place] | [address] | | | | | [address] | | | | | | [phone] | | | +--------+ + + + [...] this encounter Miscellaneous Notes Telephone Encounter - Kristie De Los Santos ANP - 09/29/2019 4:53 PM PSTReturned patient call. No answer. No ability to leave as mailbox was full. LUTHER Hudson documented in this enco unter Plan of Treatment +--------+ + + + [...]
--- OUTSIDE RECORDS SUMMARY | ~2020-08-01 | XMS | Encounter Summary ---
Demographics + + + | Address | [address] | | | [place] [address] | + + + | Home Phone | | + + + | Preferred Language | Unknown | + + + | Marital Status | Unknown | + + + | Hoahaoism Affiliation | PRO | + + + | Race | White | + + + | Ethnic Group | Not or | + + + Author + + + | Author | [facility] | + + + | Organization | [facility] | + + + | Address | Unknown | + + + | Phone | Unavailable | + + + Support + + +---------+ + | Name | Relationship | Address | Phone | + + +---------+ + | Beth Mas | ECON | Unknown | | + + +---------+ + Care Team Providers + +------+ + | Care Sampling Expert Name | Role | Phone | + +------+ + | Gilberto Estrada MD | PCP | | + +------+ + Reason for Visit +---------+ + | Reason | Comments | +---------+ + | Post Op | | +---------+ + Encounter Details +--------+---------+ + + + | Date | Type | Department | Care Team | Description | +--------+---------+ + + + | 07/14/ | Office | Orthopaedics at | Ghassan Sherman, | Right knee pain, | | 2018 | Visit | [address] | [address] | unspecified | | | | [address] | [place], [place] | chronicity (Primary | | | | [address] | [address] | Dx); Infection | | | | [place], [place] | [phone] | associated with | | | | [address] | | internal right knee | | | | [phone] | | prosthesis, | | | | | | subsequent encounter | +--------+---------+ + + + Social History [...] documented as of this encounter Progress Notes Ghassan Sherman MD - 07/14/2018 1:[address] [facility] 06/12/18 Right TKA I&D, poly exchanged S:Mr. Duane Mas is a 78 year old male. he is now 1 month(s) since initial treatment. Cu rrently he is up and walking. The leg feels good. Patient states pain is 2 out of 10. He i s still on natibitoics. O: Vitals: There were no vitals taken for this visit. General- Awake & alert male; No acute distress; Alert & oriented to person/place/time; Appr opriate pleasant affect Right knee anteriro incison helad and dry. Knee ROM 3-100 degreees. Mild effusion remanis. No erythema. XRAYS: My independent review of images shows stable right TKA. 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 Continue antibitoics per ID servvice 1. Activity: wegiht bearing and Knee ROM as toelrated. 2. Medication changes: none 3. F/U: 1-2 months 4. Repeat pre clinic x-rays: weigth bearing righ tknee ap/laterall GHASSAN SHERMAN MD [facility] [place] [address] [facility] [address] [place] [address] No orders of the defined types were placed in this encounter. documented in this e ncounter Plan of Treatment Not on filedocumented as of this encounter Visit Diagnoses + + | Diagnosis | + + | Right knee pain, unspecified chronicity - Primary | + + | Infection associated with internal right knee prosthesis, subsequent encounter | + + documented in this encounter"
--- OUTSIDE RECORDS SUMMARY | ~2020-08-01 | XMS | Encounter Summary ---
Demographics + + + | Address | [address] | | | [place] [address] | + + + | Home Phone | | + + + | Preferred Language | Unknown | + + + | Marital Status | Unknown | + + + | Voodoo Affiliation | PRO | + + + [...] Team Providers + +------+ + | Care Social Services Analyst Name | Role | Phone | [...] | | | | | [address] [facility] | | | | | | [place] | | | | | | [id number] | | | | | | | [...] | DERMATOPATH | | | MNT) | [address] [address] | | OLOGY | | | [...] + + + + + | [facility] | [address] | [place] [address] | | | PATHOLOGY | [address] | | | + + + + + | [facility] | [address] | [place] [address] | | | DERMATOPATHOLOGY | [address] | | | + + + + + documented in this encounter Visit Diagnoses Not on filedocumented in this encounter"
--- OUTSIDE RECORDS SUMMARY | ~2020-08-01 | XMS | Encounter Summary ---
Demographics + + + | Address | [address] | | | [place] [address] | + + + | Home Phone | | + + + | Preferred Language | Unknown | + + + | Marital Status | Unknown | + + + | Mandaen Affiliation | PRO | + + + | Race | White | + + + | Ethnic Group | Not or | + + + Author + + + | Author | [facility] | + + + | Organization | [facility] | + + + | Address | Unknown | + + + | Phone | Unavailable | + + + Support + + +---------+ + | Name | Relationship | Address | Phone | + + +---------+ + | Beth Mas | ECON | Unknown | | + + +---------+ + Care Team Providers + +------+ + | Care Ocean Freight Manager Name | Role | Phone | [...] | | | | and | | [address] | | | | | inflammatory | | [place] | | | | | reaction | | [address] [place], | | | | | due to | | [place] | | | | | internal | | [address] | | | | | right knee | | Phone: | | | | | prosthesis, | | [phone] | | | | | initial | | Fax: | | | | | encounter | | [phone] | +--------+--------+ + + + + Encounter [...] | | | | Loop Physician's | [facility] [place] | subsequent encounter | | | | [place], 3rd floor | [address] | (Primary Dx); Long | | | | [place], [place] | [phone] | term (current) use | | | | [address] | | of antibiotics | | | | [phone] | | | +--------+---------+ + + + [...] he was briefly hospitalized since discharge from [facility] for ALVINO. Cr now back at prev [...] mouth once daily., Disp: , Rfl: antiox. no.[id number] (I-CAPS) 280-10-2 mg oral capsule, Take 1 [...] three times daily., Disp: , Rfl: omega 3-yjr-yjs-fish oil (FISH OIL) 100-160-1,000 mg oral capsule, [...] prn Abril Shields MD Infectious Diseases [phone] documented in this encounter Plan of Treatment Not on filedocumented as of this encounter Visit Diagnoses + + | Diagnosis | + + | Infection associated with internal right knee prosthesis, subsequent encounter - | | Primary | + + | lobsterman (current) use of antibiotics | + + documented in this encounter"
--- OUTSIDE RECORDS SUMMARY | ~2020-08-01 | XMS | Encounter Summary ---
Demographics + + + | Address | [address] | | | [place] [address] | + + + | Home Phone | | + + + | Preferred Language | Unknown | + + + | Marital Status | Unknown | + + + | Evangelical Affiliation | PRO | + + + | Race | White | + + + | Ethnic Group | Not or | + + + Author + + + | Author | [facility] | + + + | Organization | [facility] | + + + | Address | Unknown | + + + | Phone | Unavailable | + + + Support + + +---------+ + | Name | Relationship | Address | Phone | + + +---------+ + | Beth Mas | ECON | Unknown | | + + +---------+ + Care Team Providers + +------+ + | Care Title Lawyer Name | Role | Phone | + +------+ + | Gilberto Estrada MD | PCP | | + +------+ + Encounter Details +--------+ + + + + | Date | Type | Department | Care Team | Description | +--------+ + + + + | 07/14/ | Hospital | Radiology/Imaging | [place], | | | 2017 | Encounter | at [facility] | [address] | | | | | [address] | [place], [place] | | | | | [facility] [address] | [address] | | | | | [place], [place] | [phone] | | | | | [address] | | | | | | [phone] | | | +--------+ + + + [...] | | 0 | | | | [id number] | mouth once daily. | | | [...] X-RAY KNEE 2 VIEWS | Routin | 07/14/2018 | Right knee pain, | Results for this | | RIGHT | e | 12:59 PM | unspecified | procedure are in the | | | | PDT | chronicity | results section. | + +--------+ + + + documented in this encounter Results X-RAY KNEE 2 VIEWS RIGHT (07/14/2018 12:59 PM PDT) + + | Specimen | + + | | + + + + + | Narrative | Performed At | + + + | EXAM: KNEE 2 VIEWS RIGHT HISTORY: BONE PAIN, KNEE | [facility] | | COMPARISON: Radiograph 06/11/2018 FINDINGS: There is a total | RADIOLOGY VOICE | | knee arthroplasty which is unchanged in alignment without evidence of | RECOGNITION 2 | | hardware failure or loosening. There is no acute fracture. There is | | | ossification along the medial femoral condyle likely related to | | | chronic MCL injury. There is effacement of the fat in the superior and | | | inferior Hoffa's fat pad. Extensive soft tissue swelling is present | | | surrounding the knee. Vascular calcifications are present. | | | IMPRESSION: Right total knee arthroplasty in normal alignment | | | without evidence of new hardware complication. Extensive soft | | | tissue swelling surrounding the knee with large joint effusion. I | | | have personally reviewed the images and, if necessary, edited the | | | report. I agree with the report as now presented. Final | | | signature: Ugo Zepeda MD 07/14/2018 3:47 PM Preliminary: | | | Patricia Daniels MD 07/14/2018 3:26 PM Dictation initiated: Patricia | | | MD Frances 07/14/2018 1:17 PM | | + + + + + | Procedure Note | + + | Service Account, Radiant Res In Interface - 07/14/2018 3:48 PM PDT EXAM: KNEE 2 | | VIEWS RIGHT HISTORY: BONE PAIN, KNEE COMPARISON: Radiograph 06/11/2018 FINDINGS: There is | | a total knee arthroplasty which is unchanged in alignment without evidence of hardware | | failure or loosening. There is no acute fracture. 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 There is effacement of the fat in | | the superior and inferior Hoffa's fat pad. Extensive soft tissue swelling is present | | surrounding the knee. Vascular calcifications are present. IMPRESSION: Right total knee | | arthroplasty in normal alignment without evidence of new hardware complication. | | Extensive soft tissue swelling surrounding the knee with large joint effusion. I have | | personally reviewed the images and, if necessary, edited the report. I agree with the | | report as now presented. Final signature: Ugo Zepeda MD 07/14/2018 3:47 PM | | Preliminary: Patricia Daniels MD 07/14/2018 3:26 PM Dictation initiated: Patricia Daniels MD | | 07/14/2018 1:17 PM | |Right total knee arthroplasty in normal alignment without evidence of new hardware complica tion. | | | |Extensive soft tissue swelling surrounding the knee with large joint effusion. | | | |I have personally reviewed the images and, if necessary, edited the report. I agree with th e report as now presented. | | | |Final signature: Ugo Zepeda MD 07/14/2018 3:47 PM | |Preliminary: Patricia Daniels MD 07/14/2018 3:26 PM | |Dictation initiated: Patricia Daniels MD 07/14/2018 1:17 PM | + + + +---------+ + [...]
--- OUTSIDE RECORDS SUMMARY | ~2020-08-01 | XMS | Encounter Summary ---
Demographics + + + | Address | [address] | | | [place] [address] | + + + | Home Phone | | + + + | Preferred Language | Unknown | + + + | Marital Status | | + + + | Restorationist Affiliation | 1077 | + + + | Race | White | + + + | Ethnic Group | Not or | + + + Author + + + | Author | [facility] | | | and [place] | + + + | Organization | [facility] | | | [...] Team Providers + +------+ + | Care Ammunition Assembly Ii Laborer Name | Role | Phone | + +------+ + | Erin Forrester MD | PCP | | + +------+ + Encounter Details +--------+ + + + + | Date | Type | Department | Care Team | Description | +--------+ + + + + | 05/20/ | Orders Only | [facility] | Mikal Calix MD | | | 2018 | | [address] | [address] | | | | | [place] | [address] [facility] | | | | | [address] | [address] | | | | | [phone] | | | +--------+ + + + [...] + + | PROTEIN/CREATININE | Routin | 05/20/2018 | | Results for this | | RATIO, URINE | e | 8:42 AM | | [...] + | URINALYSIS WITH | Routin | 05/20/2018 | | Results for this | | MICROSCOPIC IF | e | 8:41 AM | | procedure are in the | | INDICATED | | PDT | | results section. | + +--------+ + + + | EXTERNAL LAB: CBC | Routin | 05/20/2018 | | Results for this | | | e | 8:21 AM | | procedure are in the | | | | PDT | | results section. | + +--------+ + + + | PARATHYROID HORMONE, | Routin | 05/20/2018 | | Results for this | | INTACT | e | 8:21 AM | | procedure are in the | | | | PDT | | results section. | + +--------+ + + + | MAGNESIUM | Routin | 05/20/2018 | | Results for this | | | e | 8:21 AM | | procedure are in the | | | | PDT | | results section. | + +--------+ + + + | RENAL FUNCTION PANEL | Routin | 05/20/2018 | | Results for this | | | e | 8:21 AM | | procedure are in the | | | | PDT | | results section. | + +--------+ + + + documented in this encounter Results Protein/Creatinine Ratio, Urine (05/20/2018 8:42 AM PDT) + +-------+ + + + | Component | Value | Ref Range | Performed | Pathologist | | | | | At | Signature | + +-------+ + + + | Protein/Cre | 0.163 | | EXTERNAL | | | at [...] + +---------+ + + Protein, Urine, Random (05/20/2018 8:42 AM PDT) + + + + + + | Component | Value | Ref Range | Performed | Pathologist | | | | | At | Signature | + + + + + + | Protein, | 7Comment: NO NORMAL | mg/dL | EXTERNAL | [...] + +---------+ + + Creatinine, Urine, Random (05/20/2018 8:42 AM PDT) + + + + + + | Component | Value | Ref Range | Performed | Pathologist | | | | | At | Signature | + + + + + + | Creatinine, | 43.0Comment: NO NORMAL | mg/dL | EXTERNAL | [...] + + Urinalysis with Microscopic if Indicated (05/20/2018 8:41 AM PDT) + + + + + [...] + + + + | Specific | 1.008 | 1.002 - 1.030 | EXTERNAL | | | [place], | | | LAB | | | [...] + + + + | Glucose, | NEGATIVE | mg/dL | EXTERNAL | [...] + +---------+ + + External Lab: CBC (05/20/2018 8:21 AM PDT) + + + + + + | Component | Value | Ref Range | Performed | Pathologist | | | | | At | Signature | + + + + + + | WBC | 5.91 | 3.80 - 11.00 | EXTERNAL | | | | | 10*3/uL | LAB | | + + + + + + | Non- | 4.19 (L) | 4.20 - 5.70 | EXTERNAL | | | Red Blood | | 10*6/uL | LAB | | | Cells | | | | | | Counted | | | | | + + + + + + | Hemoglobin | 13.3 | 13.2 - 17.0 | EXTERNAL | | | | | g/dL | LAB | | + + + + + + | Hematocrit, | 38.5 (L) | 39.0 - 50.0 % | EXTERNAL | | | POC | | | LAB | | + + + + + + | MCV | 91.9 | 80.0 - 100.0 fL | EXTERNAL | | | | | | LAB | | + + + + + + | MCH | 31.7 | 27.0 - 34.0 pg | EXTERNAL | | | | | | LAB | | + + + + + + | MCHC | 34.5 | 32.0 - 35.5 | EXTERNAL | | | | | g/dL | LAB | | + + + + + + | RDW-CV | 67.4 (H) | 37 - 53 fL | EXTERNAL | | | | | | LAB | | + + + + + + | Platelet | 139 (L) | 150 - 400 | EXTERNAL | | | Count | | 10*3/uL | LAB | | | Plasma | | | | | + + + + + + | MPV | 8.4 | fL | EXTERNAL | | | | | | LAB | | + + + + + + | Differentia | AUTOMATED | | EXTERNAL | | | l Type | | | LAB | | + + + + + + | % Segmented | 62.45 | % | EXTERNAL | | | | | | LAB | | | Neutrophils | | | | | + + + + + + | % | 25.07 | % | EXTERNAL | | | Lymphocytes | | | LAB | | + + + + + + | % Monocytes | 7.50 | % | EXTERNAL | | | | | | LAB | | + + + + + + | % | 4.01 | % | EXTERNAL | | | Eosinophils | | | LAB | | + + + + + + | % Basophils | 0.97 | % | EXTERNAL | | | | | | LAB | | + + + + + + | Absolute | 3.69 | 1.90 - 7.40 | EXTERNAL | | | Segmented | | 10*3/uL | LAB | | | Neutrophils | | | | | + + + + + + | Absolute | 1.48 | 1.00 - 3.90 | EXTERNAL | | | Lymphocytes | | 10*3/uL | LAB | | + + + + + + | Absolute | 0.44 | 0.00 - 0.80 | EXTERNAL | | | Monocytes | | 10*3/uL | LAB | | + + + + + + | Absolute | 0.24 | 0.00 - 0.50 | EXTERNAL | | | Eosinophils | | 10*3/uL | LAB | | + + + + + + | Absolute | 0.06 | 0.00 - 0.10 | EXTERNAL | | | Basophils | | 10*3/uL | LAB | | + + + + + + | RBC | 3+ | | EXTERNAL | | | Morphology | | | LAB | | + + + + + + | RBC | ANISO | | EXTERNAL | | | Morphology | | | LAB | | + [...] + +---------+ + + Parathyroid Hormone, Intact (05/20/2018 8:21 AM PDT) + + + + + + | Component | Value | Ref Range | Performed | Pathologist | | | | | At | Signature | + + + + + + | PTH INTACT | 115.6 (H) | 12 - 88 [...] | | + +---------+ + + Magnesium (05/20/2018 8:21 AM PDT) + +-------+ + + + [...] + +---------+ + + Renal Function Panel (05/20/2018 8:21 AM PDT) + + + + + + | Component | Value | Ref Range | Performed | Pathologist | | | | | At | Signature | + + + + + + | Na | 141 | 135 - 145 | EXTERNAL | | | | | mmol/L | LAB | | + + + + + + | K | 3.6 | 3.5 - 4.9 | EXTERNAL | | | | | mmol/L | LAB | | + + + + + + | Cl | 98 (L) | 99 - 109 [...] + + + + | Glucose, | 173 (H) | 65 - 99 mg/dL | EXTERNAL | | | Fasting | | | LAB | | + + + + + + | BUN | 40 (H) | 8 - 25 mg/dL | EXTERNAL | | | | | | LAB | | + + + + + + | Creatinine | 1.8 (H) | 0.70 - 1.30 | EXTERNAL | | | | | mg/dL | LAB | | + + + + + + | Calcium | 9.4 | 8.5 - 10.5 | EXTERNAL | | | | | mg/dL | LAB | | + + + + + + | Albumin | 3.6 | 3.3 - 4.8 g/dL | EXTERNAL | | | | | | LAB | | + + + + + + | PHOSPHORUS | 2.8 | 2.3 - 4.8 mg/dL | EXTERNAL | | | | | | LAB | | + + + + + + | Estimated | 37 (L)Comment: GFR <60: | mL/min/1.73_m2 | EXTERNAL [...]
--- OUTSIDE RECORDS SUMMARY | ~2020-08-01 | XMS | Encounter Summary ---
Demographics + + + | Address | [address] | | | [place] [address] | + + + | Home Phone | | + + + | Preferred Language | Unknown | + + + | Marital Status | Unknown | + + + | Taoist Affiliation | PRO | + + + [...] Team Providers + +------+ + | Care Colorist Formulator Name | Role | Phone | + [...]
--- OUTSIDE RECORDS SUMMARY | ~2020-08-01 | XMS | Encounter Summary ---
Demographics + + + | Address | [address] | | | [place] [address] | + + + | Home Phone | | + + + | Preferred Language | Unknown | + + + | Marital Status | Unknown | + + + | Restorationism Affiliation | PRO | + + + | Race | White | + + + | Ethnic Group | Not or | + + + Author + + + | Author | [facility] | + + + | Organization | [facility] | + + + | Address | Unknown | + + + | Phone | Unavailable | + + + Support + + +---------+ + | Name | Relationship | Address | Phone | + + +---------+ + | Beth aMs | ECON | Unknown | | + + +---------+ + Care Team Providers + +------+ + | Care Manufacturing Engineer Supervisor Name | Role | Phone | [...] | | | | Loop [facility] | [place], [place] | | | | | [place], [facility] floor | [address] | | | | | [place], [place] | [phone] | | | | | [address] | | | | | | [phone] | | | +--------+--------+ + + + [...]
--- OUTSIDE RECORDS SUMMARY | ~2020-08-01 | XMS | Encounter Summary ---
Demographics + + + | Address | [address] | | | [place] [address] | + + + | Home Phone | | + + + | Preferred Language | Unknown | + + + | Marital Status | | + + + | Mosque Affiliation | 1077 | + + + | Race | White | + + + | Ethnic Group | Not or | + + + Author + + + | Author | [facility] | | | and [place] | + + + | Organization | [facility] | | | [...] Team Providers + +------+ + | Care Pharmacist In Charge Name | Role | Phone | + +------+ + PCP | Unavailable | + +------+ + Encounter Details +--------+ + + + + | Date | Type | Department | Care Team | Description | +--------+ + + + + | 10/24/ | Hospital | [facility] | Conversion | [facility] | | 2016 - | Encounter | [facility]ICAL [facility]ENTER | Transaction, | | | | | CLINICAL DECISION | Provider Unknown | | | 10/25/ | | [address] [facility] | | | | 2016 | | [place] | | | | | | [address] | Robel Ricci Ken | | | | | [phone] | MD [address] | | | | | | [address] | | | | | | [place] [address] | | | | | | [phone] | | | | | | | [...] 1742 Date of Service: 10/25/16956 Status: Signed Forensic Nurse: Mikal Ha MD (Physician) [facility] Service: Cardiology Discharge Summary Date of Admission: [...] Date of Service: 10/24/16 1631 Status: Signed Forensic Nurse: Ariana Johnson RN (Registered Nurse) Arm sling applied to left arm. docume nted in this encounter H&P Notes Mikal Ha - 10/24/2016 1:01 PM PST H&P by Mikal Ha MD at 10/24/16 1301 Author: Mikal Ha MD Service: Cardiology Author Type: Physician Filed: 10/24/16 1301 Date of Service: 10/24/16 1301 Status: Signed Forensic Nurse: Mikal Ha MD (Physician) [facility] Service: Cardiology Pre-Operative History & Physical Interval [...] this, however is planning to go to [place] after . He is on warf mustapha [...] mild distal inferior-apical ischemia, LVEF 53%. 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 Essential hypertension Hypertension, controlled, continue current [...] this, however is planning to go to [place] after . He is on warfarin at [...] topically 2 (two) times daily as needed. [place]-3 Fatty Acids (FISH OIL) 1200 MG CAPS [...] Date of Service: 10/25/16 1027 Status: Signed Forensic Nurse: Amy Broderick RN (Registered Nurse) Daily care [...] 10/24/162316 Date of Service: 10/24/162316 Status: Signed Forensic Nurse: Erick Ramos RN (Registered Nurse) No falls [...] 10/24/162315 Date of Service: 10/24/162315 Status: Signed Forensic Nurse: Erick Ramos RN (Registered Nurse) Daily care needs are [...] | | | Fingerstick | performed at [facility];[address] | | LAB | | | | [address];[place], [place] | | | | | | [address] | | | | + + + [...] EXTERNAL LAB | | Testing performed at [facility];[address] [place] [address];[place] [address] MRSA PCR | | | NEGATIVE Testing performed at | | | [facility];[address] [place] [address];[place] [address] | | + + + + +---------+ [...] | | | | | performed at [facility] | | | | | | [address];[place], [place] | | | | | | [address] | | | | + + + [...] EXTERNAL | | | | performed at [facility];[address] | K/uL | LAB | | | | [address];[place] | | | | | | [address] | | | | + + + + + + | Non- | 5.01Comment: Testing | 4.20 - 5.70 | EXTERNAL | | | Red Blood | performed at [facility];[address] | M/uL | LAB | | | Cells | [address];[place] | | | | | Counted | [address] | | | | + + + + + + | Hemoglobin | 15.0Comment: Testing | 13.2 - 17.0 | EXTERNAL | | | | performed at [facility];[address] | g/dL | LAB | | | | [address];[place] | | | | | | [address] | | | | + + + + + + | Hematocrit, | 44.8Comment: Testing | 39.0 - 50.0 % | EXTERNAL | | | POC | performed at [facility];[address] | | LAB | | | | [address];[place] | | | | | | [address] | | | | + + + + + + | MCV | 89.6Comment: Testing | 80.0 - 100.0 fl | EXTERNAL | | | | performed at [facility];[address] | | LAB | | | | [address];[place] | | | | | | [address] | | | | + + + + + + | MCH | 29.9Comment: Testing | 27.0 - 34.0 pg | EXTERNAL | | | | performed at [facility];[address] | | LAB | | | | [address];[place] | | | | | | [address] | | | | + + + + + + | MCHC | 33.4Comment: Testing | 32.0 - 35.5 | EXTERNAL | | | | performed at [facility];[address] | g/dL | LAB | | | | [address];[place] | | | | | | [address] | | | | + + + + + + | RDW-CV | 50.3Comment: Testing | 37 - 53 fl | EXTERNAL | | | | performed at [facility];[address] | | LAB | | | | [address];[place] | | | | | | [address] | | | | + + + + + + | Platelet | 111 (L)Comment: Testing | 150 - 400 K/uL | EXTERNAL | | | Count | performed at [facility];[address] | | LAB | | | Plasma | [address];[place] | | | | | | [address] | | | | + + + + + + | MPV | 9.1Comment: Testing | fl | EXTERNAL | | | | performed at [facility];[address] | | LAB | | | | [address];[place] | | | | | | [address] | | | | + + + + + + | Differentia | AUTOMATEDComment: | | EXTERNAL | | | l Type | Testing performed at | | LAB | | | | [place];[address];[place] [address] | | | | + + + + + + | % Segmented | 63.78Comment: Testing | % | EXTERNAL | | | | performed at [facility];[address] | | LAB | | | Neutrophils | [address];[place] | | | | | | [address] | | | | + + + + + + | % | 24.36Comment: Testing | % | EXTERNAL | | | Lymphocytes | performed at [facility];[address] | | LAB | | | | [address];[place] | | | | | | [address] | | | | + + + + + + | % Monocytes | 8.57Comment: Testing | % | EXTERNAL | | | | performed at [facility];[address] | | LAB | | | | [address];[place] | | | | | | [address] | | | | + + + + + + | % | 2.68Comment: Testing | % | EXTERNAL | | | Eosinophils | performed at [facility];[address] | | LAB | | | | [address];[place] | | | | | | [address] | | | | + + + + + + | % Basophils | 0.61Comment: Testing | % | EXTERNAL | | | | performed at [facility];[address] | | LAB | | | | [address];[place] | | | | | | [address] | | | | + + + + + + | Absolute | 5.19Comment: Testing | 1.90 - 7.40 | EXTERNAL | | | Segmented | performed at [facility];[address] | K/uL | LAB | | | Neutrophils | [address];[place] | | | | | | [address] | | | | + + + + + + | Absolute | 1.98Comment: Testing | 1.00 - 3.90 | EXTERNAL | | | Lymphocytes | performed at [facility];[address] | K/uL | LAB | | | | [address];[place] | | | | | | [address] | | | | + + + + + + | Absolute | 0.70Comment: Testing | 0.00 - 0.80 | EXTERNAL | | | Monocytes | performed at [facility];[address] | K/uL | LAB | | | | [address];[place] | | | | | | [address] | | | | + + + + + + | Absolute | 0.22Comment: Testing | 0.00 - 0.50 | EXTERNAL | | | Eosinophils | performed at [facility];[address] | K/uL | LAB | | | | [address];[place] | | | | | | [address] | | | | + + + + + + | Absolute | 0.05Comment: Testing | 0.00 - 0.10 | EXTERNAL | | | Basophils | performed at [facility];[address] | K/uL | LAB | | | | [address];[place] | | | | | | [address] | | | | + + + [...] EXTERNAL | | | | performed at [facility];888 | mmol/L | LAB | | | | [address];[place] | | | | | | [address] | | | | + + + + + + | K | 3.9Comment: Testing | 3.5 - 4.9 | EXTERNAL | | | | performed at [facility];[address] | mmol/L | LAB | | | | [address];[place] | | | | | | [address] | | | | + + + + + + | Cl | 103Comment: Testing | 99 - 109 mmol/L | EXTERNAL | | | | performed at [facility];[address] | | LAB | | | | [address];[place] | | | | | | [address] | | | | + + + + + + | CO2 | 32Comment: Testing | 23 - 32 mmol/L | EXTERNAL | | | | performed at [facility];[address] | | LAB | | | | [address];[place] | | | | | | [address] | | | | + + + + + + | Anion Gap | 9Comment: Testing | 5 - 20 mmol/L | EXTERNAL | | | | performed at [facility];[address] | | LAB | | | | [address];[place] | | | | | | [address] | | | | + + + + + + | Glucose, | 121 (H)Comment: Testing | 65 - 99 mg/dL | EXTERNAL | | | Fasting | performed at [facility];[address] | | LAB | | | | [address];[place] | | | | | | [address] | | | | + + + + + + | BUN | 24Comment: Testing | 8 - 25 mg/dL | EXTERNAL | | | | performed at [facility];[address] | | LAB | | | | [address];[place] | | | | | | [address] | | | | + + + + + + | Creatinine | 1.2Comment: Testing | 0.70 - 1.30 | EXTERNAL | | | | performed at [facility];[address] | mg/dL | LAB | | | | [address];[place] | | | | | | [address] | | | | + + + + + + | BUN/Creatin | 20Comment: Testing | | EXTERNAL | | | ine Ratio | performed at [facility];[address] | | LAB | | | | [address];[place] | | | | | | [address] | | | | + + + + + + | Calcium | 8.7Comment: Testing | 8.5 - 10.5 | EXTERNAL | | | | performed at [facility];[address] | mg/dL | LAB | | | | [address];[place] | | | | | | [address] | | | | + + + [...] | | | | | | at [facility];[address] [place] [address] | | | | | | [facility];[place] [address] | | | | + + + [...]
--- OUTSIDE RECORDS SUMMARY | ~2020-08-01 | XMS | Encounter Summary ---
Demographics + + + | Address | [address] | | | [place] [address] | + + + | Home Phone | | + + + | Preferred Language | Unknown | + + + | Marital Status | | + + + | Rastafarian Affiliation | 1077 | + + + | Race | White | + + + | Ethnic Group | Not or | + + + Author + + + | Author | [facility] | | | and [place] | + + + | Organization | [facility] | | [...] Team Providers + +------+ + | Care Icing Coater Name | Role | Phone | + +------+ + | Erin Forrester MD | PCP | | + +------+ + Encounter Details +--------+ + + + + | Date | Type | Department | Care Team | Description | +--------+ + + + + | 12/06/ | Orders Only | [facility] | Conversion | | | 2017 | | [facility] | Transaction, | | | | | [address] | Provider Unknown | | | | | [place] | [phone] | | | | | [address] | | | | | | [phone] | | | +--------+ + + + [...]
--- OUTSIDE RECORDS SUMMARY | ~2020-08-01 | XMS | Encounter Summary ---
Demographics + + + | Address | [address] | | | [place] [address] | + + + | Home Phone [...] Team Providers + +------+ + | Care Claims Auditor Name | Role | Phone | + [...] 2017 | | [address] Justus Hernandez | [address] | EXCHANGE MICRO x 7 | | | | Rd [facility] | [place], [place] | PATH x 2 | | | | Hospital Admitting | [address] | | | | | Desk Located on the | [phone] | | | | | 9th floor | | | | | | [place], [place] | | | | | | [address] | | | +--------+---------+ + + + [...] (s/p PCI x3, CABG x2) complicated by drapery counselor erich systolic heart failure (EF 45%) due [...] excellent response. He will continue PT/OT at [facility] swing bed unit. Per [...] I-CAPS 280-10-2 mg Cap Generic drug: antiox.mv no.27-wove7o-bjyrlmo6z-roi-xku Take 1 capsule by mouth once daily. [...] (Non-Steroidal Anti-Inflammatory Drug) Renal Failure Avoid per Plastic Finisher recommendations Sulfa (Sulfonamide Antibiotics) Rash Vital Signs [...] information for after-discharge care Discharge Destination IP [facility] . Specialty: Acute Care Hospital Contact information [address] [place] [id number] [place] Location: [facility] swing bed unit Appointments: Dr. Sherman on 07/23/18 at 10:40am. The discharge note was forwarded to the PCP for review. Discharging Physician: Ann Mahmood MD Suggested CPT: 10549 Discharge Management > 30 minute I spent more than 35 minutes lalg-dy-vqlh with the patient of which 70% was [...] | | 0 | | | | no.65-xexm4i-uxpugpq7p-vwz-yho | mouth once daily. | | | [...] negative pressure wound therapy dressing right knee [id number] Subjective: Doing ok overall. No CP/SOB. Tolerating [...] Plan to DC today to SNF in [place]. SNF can pull sutures at 2 weeks from operat kai date (June 27 is 2 weeks post op). Plan to return to Dr. Sherman' clinic 6 weeks an d also have ID clinic visit on that day. Appreciate [facility] and ID help in managing this complex [...] knee at that time. Elias Soriano MD [facility] Department of Orthopaedics and Rehabilitation PGY-1 Pager [phone] Ann Vang MD - 4:42 PM PDT [...] (s/p PCI x3, CABG x2) complicated by drapery counselor erich systolic heart failure (EF 45%) due [...] mg daily Dispo: Anticipate discharge tomorrow to [facility] bed unit if renal function is s table Code status: Full code Diet: Regular diet Prophy: warfarin and heparin Ann Mahmood MD Breakfast Hostwarehouse trainer Clinical Hospitalist and Medicine Teaching Services [facility] Pager [phone] Suggested CPT: 00576 Subsequent Visit Detailed/High complexity 35 min I spent 37 minutes rbxy-th-dfnr with the patient of which 78% was [...] negative pressure wound therapy dressing right knee [id number] Subjective: Doing ok overall. No CP/SOB. Tolerating [...] to home as t ransporting back to [place] may present the patient and family undo hardship. 6. Dressings/Drains: Pulled yesterday? 7. Dispo/Discharge: Anticipate discharge to SNF in next 1-3 days if all criteria met. 8. Follow-up: Please call the clinic to make a follow up appointment in approximately 2 wee ks with ORTHO TRAUMA & FRACTURE, . AP and lateral of R knee at that time. Elias Soriano MD [facility] Department of Orthopaedics and Rehabilitation PGY-1 Pager [phone] atel, Tanvir - 06/16/2018 8:20 AM PDT [...] three and a half hours away from [place]. At this time, we are unsur e of his ability to follow up with an OPAT clinic or if there is a provider near [place], where the patient resides. 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 This patient was staffed [facility] Dr. Villalobos, who agrees with the above assessment and plan unless otherwise documented. Tanvir Ayala, [facility] P SUBJECTIVE Interval Events: No acute events overnight S: patient reports he is feeling well this morning. States he was able to meet with a special education case manager and had decided to go to a [...] Dona Mercado MD Division of Hospital Medicine [facility] Pager [phone] I spent more than 35 minutes miha-yd-zzli with the patient of which greater than [...] negative pressure wound therapy dressing right knee [id number] Subjective: Doing ok overall, not too much pain in right knee. Looking forward to getting back digger operator to home, "My wants to get [...] to home as t ransporting back to [place] may present the patient and family undo [...] time. JATIN Dent Orthopaedic Trauma Surgery Pager [phone] Stephan Aguirre MD - 06/14/2018 8:59 AM [...] afua, statin, aldosterone antagon ist, without recent PATIRCIA inbitor / ARB use given progressive renal [...] Dona Mercado MD Division of Hospital Medicine [facility] Pager [phone] I spent more than 35 minutes bunv-qw-fpyf with the patient of which greater than [...] negative pressure wound therapy dressing right knee [id number] Subjective: Pain improving in R knee. Objective: [...] at that time. SEBAS PLEITEZ MD Pager [phone] tephan Mercado M D - 06/13/2018 9:51 [...] DM2 (a1c 6.2), CKD (baseline Cr ~1.7), SENU, severe cervical stenosis, hx of DVT 2014 [...] Andrichard Mercado MD Division of Hospital Medicine [facility] Pager [phone] I spent more than 35 minutes iruj-sf-gwsw with the patient of which greater than [...] negative pressure wound therapy dressing right knee [id number] Subjective: Painful in R knee today, but [...] at that time. SEBAS PLEITEZ MD Pager [phone] Stephan Aguirre M D - 06/12/2018 1:24 [...] Andrichard Mercado MD Division of Hospital Medicine [facility] Pager [phone] I spent more than 35 minutes rmhv-cp-pwos with the patient of which greater than [...] total arthroplasty. Nika martinez was referred to [facility] for joint revision, and presented emergently to [facility] ED from [facility] ([place], [place]). Prior to presentation patient states that [...] IV (baseline cr 1.8-2.0), has had prior ME, no CVA. For his right lower extremity [...] mild distal inferior-apical ischemia, LVEF 53%. -10/2015 [facility] with 90% ostial first diagonal, 85% ostial second diagonal, occluded stent of proximal RCA with left to right coronary collaterals, Patent SVG to LAD Ischemic Cardiomyopathy c/b Chronic Systolic Heart Failure and Diastolic Heart Failure -10/2015 [facility] with EF 45% and inferiobasal akinesia [...] po daily Carvedilol 12.5mg po daily -Y [place]-3 fatty acid 1,200mg po bid Acetaminophen-codeine po [...] the Social Hx as appropriate. 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 -would consult electronics system mechanic for enhanced nutrition in post-operative period Non-Insulin [...] as unclear why patient was placed on alf anticoagulation after prior provoked DVT. Dean Ugarte MD Clinical Hospitalist Services [facility] Pager [phone] 06/11/2018 10:44 PM [facility] DEPARTMENT: Hosp ([facility]) - [phone] Place of Service: [facility] [id number] Date of Service: 07/25/2016 [facility] [id number] Modifiers:GC Resident Involved: No Service: PRIMARY HOSPITALIST Suggested CPT: 14946 Initial Visit Comp/High Complexity 70 min I [...] Antibiotics and Frequent lab draws Procedure location: Unit:[facility] Room: 14 Providers: Attending name: Attending physically present: No PICC Nurse name: Frances Fair RN BSN VAT Assisted by Christina March RN BSN VAT Pre-Procedure Consent: written consent obtained Consent given by: Patient Patient identity confirmed per protocol: Yes Team Pause: Immediatly prior to the procedure a pause per protocol was called. A pause veri fies correct patient, procedure, equipment, is support analyst and site/side marked as required. CLABSI Prevention [...] area Basilic vein. Cat heter lot number: [id number] with a length of 55 cm was [...] Service: 08/01/2015 Attending Surgeon: Ghassan Sherman MD Front End Driver(s): mesfin thompson MD Preoperative Diagnosis: 1. right total knee prosthetic joint infection. Postoperative Diagnosis: same Procedures Performed: 1. Right knee arthrotomy with drainage for infection and polyethylene exchange 2. Application TINO disposible negative pressure wound therapy dressing right knee [id number] Anesthesia: General endotracheal anesthesia. Implants: excahgned alisha triathalon poly size 15, 13mm EBL: 50 Complications: None Specimens: 6 cultures, 1 path Indication For Procedure: Solo Alves was transferred to [facility] for sepsis after previosuly having been treated with a right total knee. He ws medically unstable and transferred to [facility] medical service. An apsirate was positive. [...] Patricia wrap. He was then awoken from [facility] and transported back to the postanesthesia care [...] as it stands. Ghassan Sherman MD, MPH Anesthesiologist, Dept. of Orthopaedics [address] [place] [address] [email or web address] [email or web address] in this encounter Consult [...] patient will need to follow up at [facility] on July 23 with orthopedics. During t hat time,we will cooridnate so that he may follow up with ID/OPAT in regards to his treatmen t. He will be discharged to [facility] to receive inpatient therapy and OPAT. 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 at [facility]. If patient is discharged [...] the primary team. This patient was staffed [facility] Dr. Villalobos, who agrees with the above assessment and plan unless otherwise documented. Tanvir Ayala, [facility] P SUBJECTIVE Interval Events: No acute [...] 07/24/18 to be continued via OPAT at [facility] Microbiology Data: Source Date Results [...] tablet allopurinol 300 mg oral tablet antiox.mv no.88-bdqf8i-xdnkrig3y-les-hem (I-CAPS) 280-10-2 mg oral capsule carvedilol 12.5 [...] Anticoagulation Clinic/Provider: New PCP Dr. Don Estrada ([phone]) Date INR Warfarin Dose 06/17/2018 1.78 2.5 [...] make recommendations. Please page clinical ph armacist (#[phone]) or call central inpatient pharmacy ([phone]) with questions. Rashard Jacob Pharm. D. Candidate Associated attestation - Mary Wade [facility] - 06/17/2018 11:14 AM PDT--I have reviewed the note written by pharmacy technician Rashard Jacob and I agree with the content and his plan for warfarin on this patient. Thank you, Mary Mauro [facility]. Pager [phone] Wade Mary [facility] - 06/16/2018 1:26 PM PDTFormatting of this [...] Anticoagulation Clinic/Provider: new PCP Dr. Don Estrada ([phone]) Date INR Warfarin Dose 06/16/2018 1.51 2.5mg [...] make recommendations. Please page clinical ph armacist (#[phone]) or call central inpatient pharmacy ([phone]) with questions. Thank you for consult, Mary Wade [facility]. Pager [phone] Trish Blankenship MD - 10:46 AM PDTAssociated Order(s): IP CONSULT TO INFECTIOUS DISEASESFormatting of thi s note might be different from the original. [facility] Infectious Diseases OPAT Referral for Discharge Planning Team B: OPAT RN Jaye Young, Office: [phone], Pager: [phone] ID Diagnosis: PJI Antibiotic agent and dosing: [...] (pt has an ortho appointment 10:40 ) Pet Supplies Salesperson: For all patients requiring IV antibiotic therapy, please route your OPAT [place] n of Care Note (.CMOPAT) to [facility] "p OPAT/Infectious Diseases clinic" Pool at [...] and make recommendations. Please page clinical pharmacist (#[phone]) or call central inpatient pharmacy ([phone]) with questions. Subjective/Objective: Allergies: Nsaids (non-steroidal anti-inflammatory [...] by his new PCP Don Estrada MD ([phone]). The patient reports Dr Estrada wanted him [...] D. 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 We will discuss [facility] OPAT vs outside providers. Formalized recs pending Recommendations were communicated directly to the primary team. This patient was staffed [facility] Dr. Villalobos, who agrees with [...] arthritis. The patient was then transferred from [place] to [facility] for fu rther evaluation. While here, [...] 300 mg by mouth once daily. antiox. no.88-gkhe6e-kxzuolh7b-fic-zye (I-CAPS) 280-10-2 mg oral capsule Take 1 [...] (Non-Steroidal Anti-Inflammatory Drug) Renal Failure Avoid per Plastic Finisher recommendations Sulfa (Sulfonamide Antibiotics) Rash Social History [...] care. Ishaan Villalobos MD Division of Infectious DiseasesNantucket, Ramon, PharmD - 06/14/2018 7:36 PM PDT [...] lab draw. - Please page clinical pharmacist (#[phone]) or call central inpatient pharmacy ([phone]) wit h questions. Subjective/Objective: Júnior Mas, a [...] CULTURE, TISSUE-PROSTHETIC JOINT INFECTION AER AND MARIELOS [[id number]] (Abnormal) KP LAB Collec dilcia: 06/12/18 1354 Lab Status: Preliminary result Specimen: Tissue from Knee - right Updated: 06/14/18 1344 CULTURE RESULT LAB Staphylococcus epidermidis (A) Ref Range: Narrative: Culture Report: Staphylococcus epidermidis Gram Stain: No squamous epithelial cells Rare polymorphonuclear cells No organisms seen Thank you, Ramon Mercado, PharmD, [facility] Clinical Pharmacist alickn, Torey Adame rmD - [...] and make recommendations. Please page clinical pharmacist (#[phone]) or call central inpatient pharmacy ([phone]) with questions. Subjective/Objective: Júnior Mas, a 78 [...] by his new PCP Don Estrada MD ([phone]). The patient reports Dr Estrada wanted him [...] you for the consult, Evgeny Akers PharmD, [facility] Pager [phone] Evgeny Robles PharmD - 06/13/2018 8:41 AM [...] on stable regimen. Please page clinical pharmacist (#[phone]) or call central inpatient pharmacy ([phone]) with q uestions. Subjective/Objective: Indication: infectious disorder of joint Therapy start date: 06/12/18 Anticipated duration: TBD Goal trough: ~15 mg/L Urine output: unavailable for most of the past 24 hours Renal function: stable , current SCr 1.66 (Baseline SCr 1.6-1.8) Actual body weight: Weight: 86.7 kg (191 lb 1.6 oz) (06/13/18 3438) Pertinent cultures/sensitivities: 06/12/18 blood and tissue cultures - in process Thank you for the consult, Evgeny Akers PharmD, [facility] Pager [phone] Harley Echols MD - 06/11/2018 7:27 PM PDT [facility] DEPARTMENT OF ORTHOPAEDICS & REHABILITATION HISTORY & PHYSICAL EXAMINATION Patient: Júnior Mas Encounter Date: 06/11/2018 Attending Physician: Maral Leon MD HISTORY OF PRESENT ILLNESS: Júnior Mas is a 78 year old male with CHF, gout, CAD with prior ME, DMII, HTN who presents with 2 weeks of progressive right knee pain, stiffness, fevers and malaise. He had his tota l knee arthroplasty done in [address] Hurst at [facility] for advance d DJD. He's had no problems with his knee replacement until 2 weeks ago. Denies any trauma, recent infection, colonoscopy or dental procedure. He has chronic venous stasis with blister formation on the RLE. He denies any pain or complaints elsewhere. He presents as a transfer from an [facility] hospital where there was a concern for a septic prost hetic knee. ESR was 112, CRP 159 and WBC count of 8. An arthrocentesis was performed today w hich demonstrated 78K WBC (95% PMN), 90K RBCs, no crystal and no organisms seen with culture s pending. He was transferred to [facility] for further management of a septic prosthetic knee. Implants: [place] Triathlon Total Knee System 1. Size 4 [...] [facility] OR[facility] & FRACTURE, The orthopaedics consult pager is [phone], please call with questions. Harley Weaver MD Resident Department of Orthopaedics Pager [phone] [facility] Department of Orthopaedics & Rehabilitation [address] [facility] Mail Code: OP31 [facility] [phone] Associated attestation - Ghassan Sherman MD - [...] call me for questions. GHASSAN SHERMAN MD [facility] [address] [address]/[address]10 [place] [address] documented in this encounter ED Notes Carla [...] (H) 0.70 - 1.30 mg/dL EGFR - PERUVIAN 39 (L) >60 mL/min EGFR NON -PERUVIAN 32 (L) >60 mL/min SODIUM, PLASMA (LAB) [...] total knee replacement in 2013 done in [facility]. Right k nee also became more swollen at that time, though without any warmth or redness. Pain worse with any movement and better at rest. He was evaluated by his PCP and started on coumadin for question of DVT, though RLE ultraso und was negative. Seen by Dr. René Yen (orthopedics) in [place] 06/09 with the following labs. - WBC [...] 06/11/2018 Heart block 06/11/2018 Pacemaker-dependent due to [place] cardiac rhythm insufficient to support life 8 [...] exam, work-up with his orthopedic surgeon and [place], he has a right knee prosthetic joint infection. Laboratory and imaging results including ESR, CRP were reviewed and interpreted, and notabl e for the following: - significantly elevated ESR and CRP - arthrocentesis at [place] with 79,000 WBCs The patient received the following in the emergency department (including medications, inte rventions, consultations, and reassessments): - orthopedics consultation, plan for [place] tomorrow Given this, patient required admission for further care. We spoke to the [facility] ist service, who accepted patient [...] Information: Patient discharging to swing bed at [facility] in [facility]. Reviewed DC to SNF AVS with patient and family, all questions answered, reinforced fo llow up appointments per AVS. PICC line in RUE with dressing CDI at discharge. TINO dressing CDI with green light flashing at discharge. Telephone report given to FLY Vanegas at [facility] at 1125. Transportation provided by family in [...] njury prevention even in recliner chair. (06/15/18 0951) [facility] IP NURSE HANDOFF: [facility] [...] njury prevention even in recliner chair. (06/15/18 3243) [facility] IP NURSE HANDOFF: [facility] hospital course [...] Met Case Management OPAT Plan of Care: [facility] hospital discharge date: 06/17/2018 This patient will be followed for all post hospital OPAT care needs by: [facility] OPAT/Infectiou s Diseases Clinic, ; IV antibiotic orders were provided to: Other vendor facility, Name: [facility] Swi ng Bed, , , Attn: [...] session other than pt and therapist: rehabilitation counsellor Current unit: 9k Brief Hospital Course:Júnior Mas [...] FWW: minimum assist, 15 feet with rehabilitation counsellor stand by assist and follow ing with wheelchair. Chair to chair transfer front wheeled walker and minimum assist Pt left up in recliner chair, call light/urinal and belongings all in reach. [facility] BASIC MOBILITY Difficulty turning over in bed [...] to do/total assistance - Total/Dependen t Assist [facility] Basic Mobility Total Score 14 Interpretation of [facility] Short Form - Basic Mobility: CMS Modifier [...] to be determined . Umm Joy, BRICE [id number] andoff - Emily Covarrubias RN - 06/16/2018 [...] njury prevention even in recliner chair. (06/15/18 7170) [facility] IP NURSE HANDOFF: [facility] hospital course [...] As evidenced by: Poor intake tonight from 9813-2191 despite encouragement. He states that his water [...] njury prevention even in recliner chair. (06/15/18 0981) [facility] IP NURSE HANDOFF: [facility] hospital course [...] session other than pt and therapist: rehabilitation counsellor and student observer Current unit: 9k Brief [...] cell phone and water all in reach. [facility] BASIC MOBILITY Difficulty turning over in bed [...] to do/total assistance - Total/Dependen t Assist [facility] Basic Mobility Total Score 9 Interpretation of [facility] Short Form - Basic Mobility: CMS Modifier [...] Equipment recommendations: to be determined BRICE Blount [address] andoff - Maria Dolores Gurrola RN - [...] njury prevention even in recliner chair. (06/15/18 9177) [facility] IP NURSE HANDOFF: [facility] hospital course [...] at EOB finishing breakfast with family at [facility]. Recliner found and placed in room for [...] nutrient distribution type or amount Nutrition Assessment: guidance director received. Pt does not like food here, [...] intake Following, Ivana Mendez, MS, RD, LD, [facility] Pager #: [phone] Comments: Júnior Mas is a 78 y.o. 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 medicine service with orthopedic sugery service [...] 29.04 kg/m2 AdjBW: 71.5 kg Estimated needs: 4553-6389 kcal/day (25-30 kcal/kg AdjBW); 72-107 g protein/day (1-1.5 g/kg AdjBW) andoff - Benny, Justus recio RN - 06/15/2018 3:49 AM PDTNursing Handoff [facility] IP NURSE HANDOFF: [facility] hospital course [...] L to get above 90 percent. Rayo AGUILRA had remote pulse ox ordered t o [...] RN - 06/14/2018 5:38 PM PDTNursing Handoff [facility] IP NURSE HANDOFF: [facility] hospital course [...] encourage meals. Monitor UOP- no ouput from 7705-6438. [facility] notified- BMS ordered. encourage fluids. MOBILITY: 2pa [...] PM PDT Physical Therapy Evaluation and Treatment [id number] [facility] Day: 3 Date of : 1940 Start [...] going down ramp) Vision/Hearing: hearing aids (very [place]; states he refuses hearing aids) Patient / Family Goal: patient will not state; patient : For patient to return home. Language: Yakut. Barriers: Very [place], not fully attentive. Pain: "lots"; refuses to [...] Integrity: right lower extremity with bandage and patircia wrap over knee. Posture: increased thoracic kyphosis, [...] assist after focus on m idline. PT, BIOCHEMISTRY TEACHER and patient encourage patient to get up to a chair, with assistance, patient r efused 4 times. Outcome Measure(s): 5 Time Sit to Stand: unable. >15 seconds predicts recurrent fallers [facility] BASIC MOBILITY Difficulty turning over in bed [...] to do/total assistance - Total/Dependen t Assist [facility] Basic Mobility Total Score 9 Interpretation of [facility] Short Form - Basic Mobility: CMS Modifier [...] underestimate Ended session: Patient supine in bed. BIOCHEMISTRY TEACHER attending to patient. ASSESSMENT: Patient presents s/p [...] RN - 06/14/2018 2:37 AM PDTNursing Handoff [facility] IP NURSE HANDOFF: [facility] hospital course [...] RN - 06/13/2018 1:32 AM PDTNursing Handoff [facility] IP NURSE HANDOFF: [facility] hospital course [...] Saige Rivera RN - 06/12/2018 8:36 PM [facility] Dis[facility] Criteria (Stable For Transfer): [...] information: see anesthesia record Functional Epidural: No RADIOACTIVITY TECHNICIAN: No Respiratory: RR: 17, O2 Sat: 98 %, O2 Delivery: Nasal cannula Breath Sounds: WDL Except (SEUN - not diagnosed) TAYLOR: LLL: RUL: RLL: SEUN No Comment: none Cardiac: BP: 113/47 HR: 94 GI: Nausea/Vomiting Status: No Signs/Symptoms: Interventions: Assessment: Comments: toleratingPO : Last void: at 1900 Contact Name: Beth Contact Number: [phone] Family contacted: Yes Comment:updated family Belongings:none in PACU [facility] - Rahel Shaw RN - 06/12/2018 [...] in the provider note. Sandra Valle MD [facility] ransfer Note - Arnie Busby ANP - 06/11/2018 3:19 PM PDT Call from Dr. Eric Yen, [facility] Pt with hx of CHF with significant fluid retention, right knee replacement, chronic leg ulc ers has infected total knee. Presented to clinic today with right knee swelling and pain. Right knee aspirate today: 79k white cells Markedly elevated CRP and sed rate Temp 99.4, vitals stable and normal Spoke with [facility] orthopedic surgeon Dr. Leon who advised transfer to [facility] ED Pt coming now via POV [facility] Rita Sandhu - 06/11/2018 3:19 PM PDTPt with post procedure infection, R total knee. Connected ref with ROCAEL Sanders. [facility] Rita Barker - 06/11/2018 2:09 PM PDTRef previously consulted [facility] ortho Dr. Maral Leon who advised PT to come to [facility] ED. Advised Dr. Yen to call [...] + + + | [facility] | [address] | [place], [place] | | | OPHELIA LOZADA OF CARE | [address] | [address] | | | TESTS | | | [...] | + + + + + | [facility] | [address] | [place] [address] | | | SERVICES, CORE | DANI [...] | | | LABORATORY | | | PERUVIAN | | | SERVICES, | | | [...] | + + + + + | [facility] | [address] | [place] [address] | | | SERVICES, CORE | DANI [...] D[facility] | [address] | [place], [place] | | | OPHELIA LOZADA OF [facility] | [address] | [address] | | | TESTS | | | [...] [facility] | [address] | [place], [place] | | | KIERRA RANCHITA OF [facility] | [address] | [address] | | | TESTS | | | | + + + + + X-RAY PORTABLE CHEST 1 VIEW (06/16/2018 4:29 PM PDT) + + | Specimen | + + | | + + + + + | Narrative | Performed At | + + + | EXAM: MD CHEST 1 VIEW HISTORY: PICC placement. 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 Catheter lot number: [id number] with a length of 55 | | [...] [facility] | [address] | [place], [place] | | | KIERRA POINT OF CARE | [address] | [address] | | | TESTS | | | [...] | + + + + + | [facility] | [address] [facility] | [place] [address] | | | SERVICES, CORE | DANI [...] | | | LABORATORY | | | PERUVIAN | | | SERVICES, | | | [...] | + + + + + | [facility] | [address] | [place] [address] | | | SERVICES, CORE | DANI [...] [facility] | [address] | [place], [place] | | | OPHELIA LOZADA OF CARE | [address] | [address] | | | TESTS | | | [...] DARSHANA | [address] | [place], [place] | | | OPHELIA LOZADA OF CARE | [address] | [address] | | | TESTS | | | [...] (H) | 70 - 99 mg/dL | [facility] - | | | GLUCOSE, | [...] | [facility] | [address] | [place], [place] | | | OPHELIA LOZADA OF CARE | [address] | [address] | | | TESTS | | | [...] | + + + + + | [facility] | [address] [facility] | [place] [address] | | | SERVICES, CORE | DANI [...] | | | LABORATORY | | | PERUVIAN | | | SERVICES, | | | [...] | + + + + + | [facility]write | [address] [facility] | [place] [address] | | | SERVICES, CORE | DANI [...] [facility] | [address] | [place] [address] | | | SERVICES, CORE | PARK [...] [facility] | [address] | [place] [address] | | | SERVICES, CORE | PARK [...] | + + + + + | [facility] | [address] [facility] | [place] [address] | | | SERVICES, CORE | PARK [...] [facility] | [address] | [place] [address] | | | KAREEM FINCH | DANI [...] [facility] | [address] | [place], [place] | | | KIERRA POINT OF CARE | [facility] | [address] | | | TESTS | | | [...] | | | LABORATORY | | | PERUVIAN | | | SERVICES, | | | [...] is appropriate. | LABORATORY | | Page [phone] or [phone] with questions. Thank you. GFR is | [...] | + + + + + | [facility] | [address] | [place] [address] | | | SERVICES, CORE | DANI [...] + + | [facility] | [address] [facility] | [place] [address] | | | SERVICES, KAREEM | DANI [...] is appropriate. | LABORATORY | | Page [phone] or [phone] with questions. Thank you. | SERVICES, CORE | + + + + + + + + | Performing | Address | City/State/Zipcode | Phone Number | | Organization | | | | + + + + + | [facility] | [address] | [place] [address] | | | SERVICES, KAREEM | [address] [...] [facility] | [address] | [place], [place] | | | OPHELIA LOZADA OF CARE | [address] | [address] | | | TESTS | | | [...] DARSHANA | [address] | [place], [place] | | | [facility] | [address] | [address] | | | TESTS | | | [...] | + + + + + | [facility] | [address] [facility] | [place] [address] | | | SERVICES, CORE | DANI [...] | | | LABORATORY | | | PERUVIAN | | | SERVICES, | | | [...] | + + + + + | [facility] | [address] | [place] [address] | | | KAREEM FINCH | DANI [...] [facility] | [address] | [place], [place] | | | KIERRA POINT OF CARE | [address] | [address] | | | TESTS | | | [...] [facility] | [address] | [place], [place] | | | OPHELIA LOZADA OF [facility] | [address] | [address] | | | TESTS | | | [...] [facility] | [address] | [place], [place] | | | OP[facility]IA LO[facility] CARE | [address] | [address] | | | TESTS | | | [...] + + | ECG | Borderline prolonged MD | | [facility] | | | [...] | + + + + + | [facility] DEPT OF | [address] | [place], [place] | | | CARDIOLOGY | [address] | [address] | | + + + + + [...] D[facility] | [address] | [place], [place] | | | OPHELIA LOZADA OF CARE | [facility] | [address] | | | TESTS | | | [...] | + + + + + | [facility] | [address] [facility] | [place] [address] | | | SERVICES, CORE | PARK [...] | | | LABORATORY | | | PERUVIAN | | | SERVICES, | | | [...] | + + + + + | [facility] | [address] | [place] [address] | | | SERVICES, CORE | PARK [...] | + + + + + | [facility] | [address] | [place] [address] | | | SERVICES, CORE | DANI [...] | | | LABORATORY | | | PERUVIAN | | | SERVICES, | | | [...] | + + + + + | [facility] | [address] | [place] [address] | | | SERVICES, CORE | PARK [...] [facility] | [address] | [place] [address] | | | SERVICES, | [address] [...] | + + + + + | [facility] | [address] | [place] [address] | | | SERVICES, | [address] [...] | + + + + + | [facility] | [address] | [place] [address] | | | KAREEM FINCH | [address] [...] [facility] | [address] | [place] [address] | | | SERVICES, | [address] [...] | + + + + + | [facility] | [address] | [place] [address] | | | SERVICES, CORE | DANI [...] (H) | 70 - 99 mg/dL | [facility] - | | | GLUCOSE, | [...] [facility] | [address] | [place], [place] | | | KIERRA POINT OF CARE | [address] | [address] | | | TESTS | | | [...] | | | LABORATORY | | | PERUVIAN | | | SERVICES, | | | [...] | + + + + + | [facility] | [address] | [place] [address] | | | KAREEM FINCH | DANI [...] | + + + + + | [facility] | [address] | [place] [address] | | | SERVICES, CORE | DANI [...] (H) | 70 - 99 mg/dL | [facility] - | | | GLUCOSE, | [...] [facility] | [address] | [place], [place] | | | OPHELIA LOZADA OF [facility] | [address] | [address] | | | TESTS | | | | + + + + + PROCEDURE NOTE (06/12/2018 2:57 PM PDT) + + + | Narrative | Performed At | + + + | Ghassan Sherman MD 06/17/2018 2:15 PM Date of Service: | | | 08/01/2015 Attending Surgeon: Ghassan Sherman MD | | | Front End Driver(s): mesfin thompson MD Preoperative Diagnosis: 1. 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 Postoperative Diagnosis: | | | same Procedures Performed: 1. Right knee arthrotomy with | | | drainage for infection and polyethylene exchange 2. Application | | | TINO disposible negative pressure wound therapy dressing right knee | | | [id number] Anesthesia: General endotracheal anesthesia. | | | Implants: excahgned alisha triathalon poly size 15, 13mm EBL: 50 | | | Complications: None Specimens: 6 cultures, 1 path Indication | | | For Procedure: Solo Alves was transferred to [facility] for sepsis | | | after [...] | | stands. Ghassan Sherman MD, MPH Anesthesiologist, Dept. of | | | Orthopaedics [place] [address] [address] | | | [address]. [address] [place] [address] | | | [email or web address] | | + + + CAPILLARY [...] [facility] | [address] | [place], [place] | | | OPHELIA LOZADA OF CARE | [address] | [address] | | | TESTS | | | [...] [facility] | [address] | [place], [place] | | | OPHELIA LOZADA OF [facility] | [address] | [address] | | | TESTS | | | [...] - | | | | | | [place] | | + + + + + [...] Propionibacterium due to growth of other | [facility] | | organsims. Gram Stain: No squamous epithelial cells Moderate | | | polymorphonuclear cells No organisms seen | | + + + + + + + + | Performing | Address | City/State/Zipcode | Phone Number | | Organization | | | | + + + + + | [facility] | [address] | [place] [address] | | | [place] | | | [...] + | [facility] | [address] | [place] [address] | | | [place] | | | [...] + | [facility] | [address] | [place] [address] | | | [place] | | | [...] + | [facility] | [address] | [place] [address] | | | [place] | | | [...] | + + + + + | [facility] - | [address] | [place] [address] | | | [place] | | | [...] | | | | | | number [phone].A. Knee, | | | | | | [...] | + + + + + | [facility] | [address] | [place] [address] | | | PATHOLOGY | [address] [...] - | | | | | | [place] | | + + + + + [...] + | [facility] | [address] | [place] [address] | | | [place] | | | | + + + [...] | | | POC | | | [facility] | | | | | | [...] [facility] | [address] | [place], [place] | | | OPHELIA LOZADA OF CARE | [facility] | [address] | | | TESTS | | | [...] [facility] | [address] | [place], [place] | | | OPHELIA LOZADA OF CARE | [facility] | [address] | | | TESTS | | | [...] [facility] | [address] | [place], [place] | | | KIERRA POINT OF CARE | [address] | [address] | | | TESTS | | | [...] | + + + + + | [facility] | [address] | [place] [address] | | | SERVICES, CORE | DANI [...] [facility] | [address] | [place] [address] | | | STEF, CORE | PARK [...] | + + + + + | [facility] | [address] | [place] [address] | | | SERVICES, CORE | PARK [...] | + + + + + | [facility] | [address] | [place] [address] | | | SERVICES, CORE | DANI [...] | + + + + + | [facility] | [address] | [place] [address] | | | STEF | DANI ALEXIS [...] | + + + + + | [facility] | [address] | [place] [address] | | | KAREEM FINCH | DANI [...] | | | LABORATORY | | | PERUVIAN | | | SERVICES, | | | [...] the MDRD equation recommended by the | [facility] | | National Kidney Disease Education Program. [...] [facility] | [address] | [place] [address] | | | SERVICES, CORE | DANI [...] 36.5 (H) | 26.0 - 36.0 | [facility] | | | | | seconds [...] | + + + + + | [facility] | [address] | [place] [address] | | | SERVICES, CORE | [address]ARK [...] (H) | 0.90 - 1.20 INR | [facility] | | | | | | LABORATORY [...] [facility] | [address] | [place] [address] | | | SERVICES, CORE | [address]ARK [...] [facility] | [address] | [place] [address] | | | SERVICES, CORE | [address] [...] [facility] | [address] | [place] [address] | | | SERVICES, KAREEM | [address] | | | + + + + + ED INFORMATION EXCHANGE (06/11/2018 6:04 PM PDT) + + | Specimen | + + | | + + + + + | Narrative | Performed At | + + + | [id number] This patient has registered at the [place] | [facility] | | [facility] Emergency Department For more | MEDICAL | | information visit: | TECH[employer]OLOGIES | | [email or web address] | | | 35ffec Security Events No [...] Complaint Aug | | | 2017 [facility] [place] Emergency | | | Emergency 10,800. REF Recent Inpatient Visit | | | Summary No recorded inpatient visits. E.D. Visit Count (12 mo.) | | | Facility Visits [facility] 1 Total 1 | | [...] | | facilities for additional information. 2018 [facility] | | | [facility] - [place], [place] - | | | [email or web address] | | + + + + + | Procedure Note | + + | Service Account, Rtf Results Inbound - 06/11/2018 6:06 PM PDT Formatting of this | | note might be different from the original.DANIEL?NOTIFICATION?06/11/2018 18:04?MAXWELL | | JÚNIOR? patient has registered at the [facility] [employer] | | [place] [facility] For more information visit: | | [email or web address] Security | | EventsNo recent Security Events currently on fileED Care GuidelinesThere are currently | | no ED Care Guidelines in DANIEL for this patient. Please check your facility's medical | | records system.Recent Emergency Department Visit SummaryAdmit Date Facility [facility] State | | Type Major Type Diagnoses or Chief Complaint Jun 11, 2018 [facility] | | [facility] Emergency Emergency 10,800. REF Recent Inpatient Visit | | SummaryNo recorded inpatient visits. E.D. Visit Count (12 mo.)Facility Visits [place] | | [facility] [...] aforementioned facilities for additional information. ? 2018 [facility] | | [facility]. [facility], [place] - [email or web address] | |Facility Visits | |[facility] 1 | |Total 1 | [...] facilities for additional information. | |? 2018 [employer] - [place], [place] - [email or web address] | + + + + + + + | Performing | Address | City/State/Zipcode | Phone Number | | Organization | | | | + + + + + | [facility] | [address] | [place], [place] | [phone] | | TECHNOLOGIES | [address] | [address] | | + + + + + [...] g, oral, NEEDED, Starting | | | [facility] 06/11/18 at 2306, Until Wed | [...]
--- OUTSIDE RECORDS SUMMARY | ~2020-08-01 | XMS | Encounter Summary ---
Demographics + + + | Address | [address] | | | [place] [address] | + + + | Home Phone | | + + + | Preferred Language | Unknown | + + + | Marital Status | | + + + | Roman Catholic Affiliation | 1077 | + + + [...] Team Providers + +------+ + | Care Crna Name | Role | Phone | + [...] | | | | | | | [place] | | | | | | | ESOPHAGOGAST | | | | | | | RODUODENOSCO | | | | | | | PY TRANSORAL | | | | | | | DIAGNOSTIC | | | | | | | OR EGD | | | | | | | BALLOON | | | | | | | DILATION | | | | | | | ESOPHAGUS | | | | | | | <30 MM DIAM | | | | | | | OR | | | | | | | [...] + + + + | 07/31/ | Hospital | [facility] | Willow Colin MD | | | 2017 | Encounter | [facility] | [address] | | | | | [address] | [address] [place], | | | | | [place] | [place] [address] | | | | | [address] | [phone] | | | | | [phone] | | | +--------+ + + + [...] + + + | Blood Pressure | 108/56 | 07/31/2017 1:00 PM | | | | | PDT | | + + + + + | Pulse | 64 | 07/31/2017 1:00 PM | | | | | PDT | | + + + + + | Temperature | 37.4 C (99.3 F) | 07/31/2017 12:39 PM | | | | | PDT | | + + + + + | Respiratory Rate | 13 | 07/31/2017 1:00 PM | | | | | PDT | | + + + + + | Oxygen Saturation | 95% | 07/31/2017 1:00 PM | | | | | PDT | | + + + + + | Inhaled Oxygen | - | - | | | Concentration | | | | + + + + + | Weight | 97.1 kg (214 lb) | 07/31/2017 11:25 AM | | | | | PDT | | + + + + + | Height | 172.7 cm (5' 8") | 07/31/2017 11:25 AM | | | | | PDT | | + + + + + | Body Mass Index | 32.54 | 07/31/2017 11:25 AM | | | | | PDT | | + + + + + documented in this encounter Discharge Instructions Instructions Fred Mendoza RN - 07/31/2017Encouraged patient not to drive for 24 hours . Increase fluids. 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 documented in this encounter Medications at Time [...] documented as of this encounter Miscellaneous Notes Op Note - Willow Colin MD - 07/31/2017 2:06 PM PDT PROCEDURE NOTE PATIENT: Duane Mas DATE OF : 1940 DATE OF PROCEDURE: 07/31/17 REFERRING PROVIDER:Collin Shepherd ENDOSCOPIST: Willow Colin MD PROCEDURE PERFORMED: Colonoscopy With snare INDICATION: Iron deficiency anemia ANESTHESIA : Ld Corado DESCRIPTION OF PROCEDURE: After the risks, benefits and alternatives of the procedure were thoroughly explained, info rmed consent was obtained. Digital rectal exam showed external hemorrhoids, decreased sphi ncter tone and hypertrophic prostate. The Olympus colonoscope was introduced through the re ctum and advanced to the cecum, which was identified by both the appendix and the ileocecal valve. The instrument was then slowly withdrawn as the mucosa was fully examined. FINDINGS: A 10mm rectal polyp was removed with hot snare . Severe sigmoid diverticulosis w ith luminal narrowing. Pediatric colonoscope passage was difficult through the rectosigmoi d colon due to dense adhesion - scope was changed out to gastroscope. A normal appearing c ecum, ileocecal valve and appendiceal orifice were identified. Retroflexion showed interna l hemorrhoids. The scope was then completely withdrawn from the patient and the procedure terminated. WITHDRAWAL TIME: 8 minutes QUALITY OF PREP: excellent COMPLICATIONS:none DIAGNOSTIC IMPRESSION: 1. Rectal polyp 2. Severe sigmoid diverticulosis with luminal narrowing 3. Internal/external hemorrhoids RECOMMENDATIONS: 1. Resume diet and medications. 2. Start iron supplement 3. High fibre diet. 4. Call Dr. Colin's office if you develop increasing abdominal pain, fever or passage of co pious amount of blood per rectum. Repeat exam: 3 years CC: Collin Shepherd Electronically signed Willow Colin MD 07/31/2017 14:06 [facility] 2:1 1 PM PDTOp Note - Willow Colin MD - 07/31/2017 12:20 PM PDT PROCEDURE NOTE PATIENT: Duane Mas DATE OF : 1940 DATE OF PROCEDURE: 07/31/17 PROCEDURE PERFORMED: EGD with biopsy and savory dilation INDICATION: dysphagia ENDOSCOPIST: Cristi Thompson MD ANESTHESIA provided by Dr. Corado DESCRIPTION OF PROCEDURE: After the risks, benefits and alternatives of the procedure were thoroughly explained, info rmed consent was obtained. The Olympus upper endoscope was introduced through the oropharyn x, and advanced to the descending duodenum. The instrument was then slowly withdrawn as t he mucosa was fully examined. FINDINGS:: Resistance met at the cricopharyngeus esophagus with esophageal intubation. Z line was se en at 43 cm. LA grade B esophagitis. Biopsies were obtained from the distal esophagus. Multiple erosion noted in the gastric antrum and body. Biopsies were obtained from gastri c body and antrum for H. pylori. Retroflexion shows a hiatal hernia. The duodenal bulb and descending duodenum appear normal. A 54 Fr savory dilator was passed with guidewire. COMPLICATIONS: None. DIAGNOSTIC IMPRESSION: 1. LA grade A esophagitis 2. Hiatal hernia 3. Gastric erosion 4. S/p savory dilation RECOMMENDATIONS: Continue omeprazole Repeat dilation as needed Call Dr. Colin's office if you develop increasing abdominal pain, fever, or vomiting of bloo d after the procedure. REPEAT EXAM: if patient has recurrence of dysphagia CC: Cesar Christopher documented in this enc ounter Plan of [...] + + + | EGD | | 07/31/2017 | Dysphagia, | | | | | 12:24 PM | unspecified type | | | | | PDT | Presence of cardiac | | | | | | pacemaker | | + +--------+ + + + | POC GLUCOSE | Routin | 07/31/2017 | | Results for this | | | e | 12:17 PM | | procedure are in the | | | | PDT | | results section. | + +--------+ + + + | SURGICAL PATHOLOGY | Routin | 07/31/2017 | | Results for this | | EXAM | e | 12:00 AM | | procedure are in the | | | | PDT | | results section. | + +--------+ + + + documented in this encounter Results POC Glucose (07/31/2017 12:17 PM PDT) + +---------+ + + + | Component | Value | Ref Range | Performed | Pathologist | | | | | At | Signature | + +---------+ + + + | Glucose, | 130 (H) | 70 - 109 mg/dL | [...] ST. | [address] | [place] | [phone] | | [facility] | | [address] | | | - LABORATORY | | | | + + + + + Surgical Pathology Exam (07/31/2017 12:00 AM PDT) + + | Specimen | + + | | + + + + + | Narrative | Performed At | + + + | SPECIMEN(S): A DISTAL ESOPHAGEAL BIOPSIES SPECIMEN(S): B GASTRIC | [facility] | | BIOPSIES SPECIMEN SOURCE: A. DISTAL ESOPHAGEAL BIOPSIES B. GASTRIC | [facility] | | BIOPSIES CLINICAL HISTORY: R13.10 (dysphagia, unspecified), Z95.0 | | | (presence of cardiac pacemaker) MICROSCOPIC DESCRIPTION: Histologic | | | sections of all submitted blocks are examined by light microscopy. | | | These findings, together with the gross examination, support the | | | pathologic diagnosis. FINAL PATHOLOGIC DIAGNOSIS: A. Esophagus, | | | distal, biopsies: - Chronic reflux esophagitis involving | | | squamocolumnar junction. - Negative for Sefl's goblet cell | | | metaplasia or dysplasia. B. Stomach, biopsy: - Benign gastric | | | mucosa with patchy vascular congestion. - Negative for significant | | | inflammation, atrophy, intestinal metaplasia or dysplasia. - | | | Negative for Helicobacter pylori with HE stain. [facility]:caw:C2NR GROSS | | | DESCRIPTION: A. The specimen, received in formalin, labeled | | | "Chace, A.," further designated "distal esophageal biopsies," consists | | | of two oh tissues, 0.2 and 0.4 cm. Submitted in (A1). B. The | | | specimen, received in formalin, labeled "Chace, B.," further | | | designated "gastric biopsies," consists of three oh tissues averaging | | | 0.3 cm. Submitted in (B1). tn:NEFTALI: PERFORMING LABORATORY: The | | | technical and professional components were performed by [employer] | | | [employer], [address] [place] [address] | | | (Advanced Solutions Architect: Don Morrell D.O.; IA#: [id number]). | | | Diagnostician: Gavin Michaud MD Pathologist Electronically | | | Signed 08/01/2017 | | + + + + +---------+ [...] ONCE PRN, Wheezing, | | | Starting [facility] 07/31/17 at 1242, | | | For 1 dose, Notify anesthesia if | | | patient is wheezing and does not | | | have a history of asthma or COPD | | | or current smoking., | | | Recovery/Phase I | | + +---+ | | | + +---+ | albuterol-ipratropium (DUONEB) | | | 2.5-0.5 mg/3 mL nebulizer | | | solution 3 mL 3 mL, | | | Nebulization, ONCE PRN, Wheezing, | | | Starting [facility] 07/31/17 at 1138, | | | For 1 dose, Pre-op | | + [...] glucose < 50, | | | Starting Zandra 07/31/17 at 1138, | | | Repeat in 15 min [...] | | blood glucose < 50, Starting Zandra | | | 07/31/17 at 1242, Give over 2 min. | | | Repeat in 15 min if blood | | | glucose remains < 70 mg/dL. | | | Repeat blood glucose in 30 min | | | once blood glucose > 70., | | | Recovery/Phase I | | + +---+ | | | + +---+ + +---------+ +--------+-------+---+ | lactated ringers (LR) infusion | New Bag | 07/31/20 | 1,000 | 100 | | | at 10-100 mL/hr, Intravenous, | | 17 11:54 | mLs | mL/hr | | | CONTINUOUS, Starting Zandra 07/31/17 | | AM PDT | | | | | at 1200, TKO., Pre-op | | | | | | + +---------+ +--------+-------+---+ + +---+ | | | + +---+ | lactated ringers (LR) infusion | | | at 100 mL/hr, Intravenous, | | | CONTINUOUS, Starting Zandra 07/31/17 | | | at 1200, Pre-op | | + +---+ | | | + +---+ documented in this encounter
--- OUTSIDE RECORDS SUMMARY | ~2020-08-01 | XMS | Encounter Summary ---
Demographics + + + | Address | [address] | | | [place] [address] | + + + | Home Phone | | + + + | Preferred Language | Unknown | + + + | Marital Status | | + + + | Hindu Affiliation | 1077 | + + + | Race | White | + + + | Ethnic Group | Not or | + + + Author + + + | Author | [facility] | | | and [place] | + + + | Organization | [facility] | | | and [...] Team Providers + +------+ + | Care Hospitalist Name | Role | Phone | + +------+ + PCP | Unavailable | + +------+ + Encounter Details +--------+ + + + + | Date | Type | Department | Care Team | Description | +--------+ + + + + | 10/12/ | Hospital | [facility] | Olaf Nicole | | | 1997 - | Encounter | HEART MED CTR | MD Amy [address] | | | | | CARDIAC TRANSPLANT | [address] | | | 10/13/ | | [address] | [place] [address] | | | 1999 | | [place] | [phone] | | | | | [address] | | | | | | [phone] | | | +--------+ + + + [...]
--- OUTSIDE RECORDS SUMMARY | ~2020-08-01 | XMS | Encounter Summary ---
Demographics + + + | Address | [address] | | | [place] [address] | + + + | Home Phone | | + + + | Preferred Language | Unknown | + + + | Marital Status | | + + + | Caodaism Affiliation | 1077 | + + + | Race | White | + + + | Ethnic Group | Not or | + + + Author + + + | Author | [facility] | | | and [place] | + + + | Organization | [facility] | | | [...] Providers + +------+ + | Care Senior Trainer Name | Role | Phone | + [...] + + | 07/29/ | Telephone | [facility] | Britni Alcazar RN | Follow-up (Call to | | 2018 | | CARDIOLOGY [place] | | schedule follow up | | | | [address] | | appt. ) | | | | [place] | | | | | | [address] | | | | | | [phone] | | | +--------+ + + + [...]
--- OUTSIDE RECORDS SUMMARY | ~2020-08-01 | XMS | Encounter Summary ---
Demographics + + + | Address | [address] | | | [place] [address] | + + + | Home Phone | | + + + | Preferred Language | Unknown | + + + | Marital Status | Unknown | + + + | Adventism Affiliation | PRO | + + + | Race | White | + + + | Ethnic Group | Not or | + + + Author + + + | Author | [facility] | + + + | Organization | [facility] | + + + | Address | Unknown | + + + | Phone | Unavailable | + + + Support + + +---------+ + | Name | Relationship | Address | Phone | + + +---------+ + | Beth Mas | ECON | Unknown | | + + +---------+ + Care Team Providers + +------+ + | Care Senior Research Executive Name | Role | Phone | + [...] [address] | | | | | [address] | [address] | | | | | [address] | [place], [place] | | | | | [place], [facility] floor | [address] | | | | | [place], [place] | [phone] | | | | | [address] | | | | | | [phone] | | | +--------+ + + + [...]
--- OUTSIDE RECORDS SUMMARY | ~2020-08-01 | XMS | Encounter Summary ---
Demographics + + + | Address | [address] | | | [place] [address] | + + + | Home Phone | | + + + | Preferred Language | Unknown | + + + | Marital Status | | + + + | Jainism Affiliation | 1077 | + + + | Race | White | + + + | Ethnic Group | Not or | + + + Author + + + | Author | [facility] | | | and [place] | + + + | Organization | [facility] | | [...] Team Providers + +------+ + | Care Shell Mold Bonder Name | Role | Phone | + [...] | | | | | | | [place] | | | | | | | ESOPHAGOGAST | | | | | | | RODUODENOSCO | | | | | | | PY TRANSORAL | | | | | | | DIAGNOSTIC | | | | | | | FL EGD | | | | | | | BALLOON | | | | | | | DILATION | | | | | | | ESOPHAGUS | | | | | | | <30 MM DIAM | | | | | | | [place] | | | | | | | [...] Description | +--------+---------+ + + + | 07/31/ | Surgery | [facility] | Willow Colin MD | EGD with Dilation | | 2017 | | MED CTR MP INTRA OP | [address] | | | | | [address] | [address] [place], | | | | | [place], [place] | [place] [address] | | | | | [address] | [phone] | | | | | [phone] | | | +--------+---------+ + + + [...] + + + | Blood Pressure | 115/57 | 07/31/2017 11:25 AM | | | | | PDT | | + + + + + | Pulse | 72 | 07/31/2017 11:25 AM | | | | | PDT | | + + + + + | Temperature | 36.6 C (97.9 F) | 07/31/2017 11:25 AM | | | | | PDT | | + + + + + | Respiratory Rate | 15 | 07/31/2017 11:25 AM | | | | | PDT | | + + + + + | Oxygen Saturation | 93% | 07/31/2017 11:25 AM | | | [...] fluids. 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 documented in this encounter Medications at [...] Electronically signed Willow Colin MD 07/31/2017 14:06 [facility] 2:1 1 PM PDTOp Note - Willow [...] | | POC | | | [facility] | | | | | | [...] ST. | [address] | [place], [place] | [phone] | | [facility] | | [address] | | | - LABORATORY | | [...] Negative for Helicobacter pylori with HE stain. [facility]:caw:C2NR GROSS | | | DESCRIPTION: A. [...] technical and professional components were performed by [employer] | | | [employer], [address] [place] [address] | | | (Associate Creative Director: Don Morrell D.O.; IA#: [id number]). 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
--- OUTSIDE RECORDS SUMMARY | ~2020-08-01 | XMS | Encounter Summary ---
Demographics + + + | Address | [address] | | | [place] [address] | + + + | Home Phone [...] Author + + + | Author | [facility] | | | and [place] | + + + | Organization | [facility] | | | [...] Team Providers + +------+ + | Care Wet Finisher Wool Name | Role | Phone | + [...] 2019 | | [address] | DENTAL SCHEDULER [address] | | | | [place] | [place] | | | | | [address] | [place] | | | | | [phone] | [address] | | | | | | [phone] | | | | | | | [...] | | | | using the [employer]D [employer] | | | | | | traceable [...]
--- OUTSIDE RECORDS SUMMARY | ~2020-08-01 | XMS | Encounter Summary ---
Demographics + + + | Address | [address] | | | [place] [address] | + + + | Home Phone | | + + + | Preferred Language | Unknown | + + + | Marital Status | | + + + | Yazdanism Affiliation | 1077 | + + + | Race | White | + + + | Ethnic Group | Not or | + + + Author + + + | Author | [facility] | | | and [place] | + + + | Organization | [facility] | | | [...] Team Providers + +------+ + | Care Bevel Operator Name | Role | Phone | [...] | | | | | | | [place] | | | | | | | ESOPHAGOGAST | | | | | | | RODUODENOSCO | | | | | | | PY TRANSORAL | | | | | | | DIAGNOSTIC | | | | | | | AR EGD | | | | | | | TRANSORAL | | | | | | | BIOPSY | | | | | | | SINGLE/MULTI | | | | | | | PLE AR EGD | | | | | | | BALLOON | | | | | | | DILATION | | | | | | | ESOPHAGUS | | | | | | | <30 MM DIAM | | | | | | | [place] | | | | | | | [...] + + | 02/10/ | Surgery | [facility] | Willow Colin MD | EGD WITH DILITATION | | 2019 | | MED CTR MP INTRA OP | [address] | | | | | [address] | [address] [place], | | | | | [place] | [place] [address] | | | | | [address] | [phone] | | | | | [phone] | | | +--------+---------+ + + + [...] You can't be awakened Date Last Reviewed: 08/13/201619993897-8611 [employer]. [address] [place] [address]. All [facility] ts reserved. This information is not intended [...] you take. This includes prescription medicines, o qvb-vjm-myrhuva medicines, herbs, vitamins, and other supplements. Be [...] icine to relax you. The procedure takes [id number]. It does not cause trouble breath ing. [...] Black, tarry, or bloodystools Date Last Reviewed: 04/26/201619993451-2648 [employer]. [address] [place] [address], [place] [address]. All righ ts reserved. This information is [...] prescription medicines Herbs, vitamins, and other supplements Uhyh-euq-ibopltk medicines such as aspirin or ibuprofen Street [...] heart or lung disease Date Last Reviewed: 05/27/201719996377-6547 [employer]. [address] [place] [address]. All righ ts reserved. This information is [...] by: Willow Colin MD, 02/10/2019 13:00 [facility] by Willow Colin MD at [...] + + + | [facility] | [address] [place] [address] | [place] [address] | [phone] | | [facility] | | | [...] | | POC | | | [facility] | | | | | | MEDICAL [...] [address] | [place] | [phone] | | [facility] | | [address] | | | - LABORATORY | | | | + + + + + Surgical Pathology Exam (02/10/2019 12:00 AM PDT) + + | Specimen | + + | | + + + + + | Narrative | Performed At | + + + | SPECIMEN(S): A GASTRIC BIOPSY SPECIMEN SOURCE: A. GASTRIC | [facility] | | BIOPSY CLINICAL HISTORY: R13.10 [...] technical and professional components were performed by [employer] | | | [employer], [address] [place] [address] | | | (Instructional Technology Instructor: Don Morrell D.O.; CLIA#: [id number]). | | | Diagnostician: Gely Cerna MD [...]
--- OUTSIDE RECORDS SUMMARY | ~2020-08-01 | XMS | Encounter Summary ---
Demographics + + + | Address | [address] | | | [place] [address] | + + + | Home Phone | | + + + | Preferred Language | Unknown | + + + | Marital Status | | + + + | Amish Affiliation | 1077 | + + + [...] Team Providers + +------+ + | Care Hat Model Name | Role | Phone | + +------+ + PCP | Unavailable | + +------+ + Encounter Details +--------+ + + + + | Date | Type | Department | Care Team | Description | +--------+ + + + + | 05/18/ | Hospital | [facility] | Olaf Nicole | | | 1998 - | Encounter | HEART MED CTR | MD Amy [address] | | | | | CARDIAC TRANSPLANT | [address] | | | 05/19/ | | [address] | [place] [address] | | | 2000 | | [place] | [phone] | | | | | [address] | | | | | | [phone] | | | +--------+ + + + [...]
--- OUTSIDE RECORDS SUMMARY | ~2020-08-01 | XMS | Encounter Summary ---
Demographics + + + | Address | [address] | | | [place] [address] | + + + | Home Phone | | + + + | Preferred Language | Unknown | + + + | Marital Status | Unknown | + + + | Sikh Affiliation | PRO | + + + [...] Team Providers + +------+ + | Care Foreign Student Adviser Teacher Name | Role | Phone | [...] | | | | [address] | [place], [place] | | | | | [place], [address]rd floor | [address] | | | | | [place], [place] | [phone] | | | | | [address] | | | | | | [phone] | | | +--------+ + + + [...]
--- OUTSIDE RECORDS SUMMARY | ~2020-08-01 | XMS | Encounter Summary ---
Demographics + + + | Address | [address] | | | [place] [address] | + + + | Home Phone | | + + + | Preferred Language | Unknown | + + + | Marital Status | Unknown | + + + | Muslim Affiliation | PRO | + + + | Race | White | + + + | Ethnic Group | Not or | + + + Author + + + | Author | [facility] | + + + | Organization | [facility] | + + + | Address | Unknown | + + + | Phone | Unavailable | + + + Support + + +---------+ + | Name | Relationship | Address | Phone | + + +---------+ + | Beth Mas | ECON | Unknown | | + + +---------+ + Care Team Providers + +------+ + | Care Spice Mixer Name | Role | Phone | + [...] 2017 | | [facility] | [address] | | | | | [address] | [address] | | | | | [address] | [place], [place] | | | | | [place], [facility] hospital floor | [address] | | | | | [place], [place] | [phone] | | | | | [address] | | | | | | [phone] | | | +--------+ + + + [...] PSTDr. Dimitri Sidhu, pt's de ntist in [place], called stating pt is having burning sensation in his mouth. Dr. Sidhu i nquired about which medication should be presciribd that won't interfere with Keflex. He can be reached at: [phone] Zfayhuecpivvqh signed by Layne Huang at 10/07/2018 5:01 PM PSTdocumented in this encounter Plan of Treatment Not on filedocumented as of this encounter Visit Diagnoses Not on filedocumented in this encounter"
--- OUTSIDE RECORDS SUMMARY | ~2020-08-01 | XMS | Encounter Summary ---
Demographics + + + | Address | [address] | | | [place] [address] | + + + | Home Phone [...] Team Providers + +------+ + | Care Insulation Nozzleman Name | Role | Phone | + [...] pain, | | 2018 | Visit | [facility] [address] | MD [address] | unspecified | | | | [address] | [place], [place] | chronicity (Primary | | | | [address] | [address] | Dx) | | | | [place], [place] | [phone] | | | | | [address] | | | | | | [phone] | | | +--------+---------+ + + + [...] might be different fr om the original. [facility] Today's [...] as listed. GHASSAN SHERMAN MD ORTHOPAEDICS AT [address] [place] [phone] Orders Placed This Encounter X-RAY KNEE 2 [...]
--- OUTSIDE RECORDS SUMMARY | ~2020-08-01 | XMS | Encounter Summary ---
Demographics + + + | Address | [address] | | | [place] [address] | + + + | Home Phone [...] + + + | Author | [facility] | | | and [place] | + + + | Organization | [facility] | | | [...] Team Providers + +------+ + | Care Outdoor Recreation Specialist Name | Role | Phone | + +------+ + PCP | Unavailable | + +------+ + Encounter Details +--------+ + + + + | Date | Type | Department | Care Team | Description | +--------+ + + + + | 05/02/ | [facility] | Olaf Nicole | | | 2000 - | Encounter | [facility] | MD [address] | | | | | CARDIAC TRANSPLANT | [address] | | | 05/03/ | | [address] | [place] [address] | | | 2000 | | [place] | [phone] | | | | | [address] | | | | | | [phone] | | | +--------+ + + + [...]
--- OUTSIDE RECORDS SUMMARY | ~2020-08-01 | XMS | Encounter Summary ---
Demographics + + + | Address | [address] | | | [place] [address] | + + + | Home Phone | | + + + | Preferred Language | Unknown | + + + | Marital Status | | + + + | Anabaptism Affiliation | 1077 | + + + | Race | White | + + + | Ethnic Group | Not or | + + + Author + + + | Author | [facility] | | | and [place] | + + + | Organization | [facility] | | | and [...] Team Providers + +------+ + | Care Breaker Unit Assembler Name | Role | Phone | + +------+ + | Erin Forrester MD | PCP | | + +------+ + Encounter Details +--------+ + + + + | Date | Type | Department | Care Team | Description | +--------+ + + + + | 06/08/ | Orders Only | [facility] | Conversion | | | 2019 | | NEPRHOLOGY [place] | Transaction, | | | | | [address] | Provider Unknown | | | | | [address] [place] | [phone] | | | | | [address] | | | | | | [phone] | | | +--------+ + + + [...] | | | LAB | | | Cambodian | | | | | + + [...]
--- OUTSIDE RECORDS SUMMARY | ~2020-08-01 | XMS | Encounter Summary ---
Demographics + + + | Address | [address] | | | [place] [address] | + + + | Home Phone | | + + + | Preferred Language | Unknown | + + + | Marital Status | | + + + | Caodaism Affiliation | 1077 | + + + | Race | White | + + + | Ethnic Group | Not or | + + + Author + + + | Author | [facility] | | | and [place] | + + + | Organization | [facility] | | [...] Team Providers + +------+ + | Care Corporate Communications Associate Name | Role | Phone | + +------+ + PCP | Unavailable | + +------+ + Encounter Details +--------+ + + + + | Date | Type | Department | Care Team | Description | +--------+ + + + + | 09/16/ | Hospital | [facility] | Olaf Nicole | | | 2000 | Encounter | [facility] | MD Amy [address] | | | | | GENERIC CONV DEPT | [address] | | | | | [address] | [place] [address] | | | | | [place] | [phone] | | | | | [address] | | | | | | [phone] | | | +--------+ + + + [...]
--- OUTSIDE RECORDS SUMMARY | ~2020-08-01 | XMS | Encounter Summary ---
Demographics + + + | Address | [address] | | | [place] [address] | + + + | Home Phone [...] Team Providers + +------+ + | Care Cigar Binder Name | Role | Phone | + [...] PADMINI Jerome | | | | | [address] | [address] | | | | | [address] | [place], [place] | | | | | [place], [facility] floor | [address] | | | | | [place], [place] | [phone] | | | | | [address] | | | | | | [phone] | | | +--------+ + + + [...]
--- OUTSIDE RECORDS SUMMARY | ~2020-08-01 | XMS | Encounter Summary ---
Demographics + + + | Address | [address] | | | [place] [address] | + + + | Home Phone [...] Team Providers + +------+ + | Care Entry Rep Name | Role | Phone | + [...] | | | | | [address] | [place] | | | | | [place] | [address] | | | | | [address] | | | | | | [phone] | | | +--------+ + + + [...] [address] | | eral | Hand; uaek-pau-unkwlt catheter | Fred Mendoza RN | Fred [...] EVALUATION Duane Mas 77 y.o. male 1940 [id number] Procedure(s) EGD with Dilation (N/A Mouth) Cooperates? [...] by Ld Corado MD 07/31/2017 12:45 [facility] Ld Corado MD at 02/2017 12:45 PM PDTAnesthesia Preprocedure Evaluation - Ld Corado MD - 07/30/2017 11: 41 AM PDT ANESTHESIA PREANESTHESIA EVALUATION Duane Mas 77 y.o. male 1940 [id number] Procedure(s): EGD with Dilation (N/A Mouth) Medical [...]
--- OUTSIDE RECORDS SUMMARY | ~2020-08-01 | XMS | Encounter Summary ---
Demographics + + + | Address | [address] | | | [place] [address] | + + + | Home Phone [...] Team Providers + +------+ + | Care Soybean Grower Name | Role | Phone | + [...] floor | | | | | | [place], [place] | | | | | | [address] | | | +--------+ + + + [...]
--- OUTSIDE RECORDS SUMMARY | ~2020-08-01 | XMS | Encounter Summary ---
Demographics + + + | Address | [address] | | | [place] [address] | + + + | Home Phone | | + + + | Preferred Language | Unknown | + + + | Marital Status | | + + + | Church Affiliation | 1077 | + + + | Race | White | + + + | Ethnic Group | Not or | + + + Author + + + | Author | [facility] | | | and [place] | + + + | Organization | [facility] | | | [...] Team Providers + +------+ + | Care Healthcare Insurance Sales Agent Name | Role | Phone | + +------+ + PCP | Unavailable | + +------+ + Encounter Details +--------+ + + + + | Date | Type | Department | Care Team | Description | +--------+ + + + + | 10/25/ | Emergency | [facility] | Syed Winchester | Fever, unspecified | | 2016 | | [facility]ICAL [facility]ENTER | DO [address] | fever cause; | | | | EMERGENCY CENTER | [address] | Leukocytosis, | | | | [address] | [place] | unspecified type | | | | [facility] [place] | [address] | | | | | [address] | [phone] | | | | | [phone] | | | +--------+ + + + [...] 0313 Date of Service: 10/25/162035 Status: Signed Auto Transmission Technician: Syed Winchester DO (Physician) [facility] Department of Emergency Medicine 8:37 PM History [...] - TOTAL; Surgeon: Drew Hurst MD; Location: [facility] MAIN OR; Serv e: Orthopedics; Laterality: Right; [...] (two) times daily as needed. Historical Provider Media-3 Fatty Acids (FISH OIL) 1200 MG CAPS [...] 10:40 PM Discuss[address] case with Dr. Ha, Pie Bakery Laborer, who requests that the patient be st [...] Date/Time Urinalysis (reflex to microscopic/reflex to culture) [[id number]] (Abnormal) Collected: 10/25/162218 Order Status: Completed Specimen Information: Urine, Clean Catch Updated: 10/25/16 22 34 COLOR UA YELLOW CLARITY CLEAR Specific [place], UA 1.020 1.002 - 1.030 LEUKOCYTE ESTERASE NEGATIVE NEGATIVE NITRITE NEGATIVE NEGATIVE UROBILINOGEN NORMAL <1.1 mg/dL PROTEIN NEGATIVE NEGATIVE mg/dL PH,URINE 5.0 5.0 - 8.0 BLOOD NEGATIVE NEGATIVE KETONES NEGATIVE NEGATIVE mg/dL BILIRUBIN NEGATIVE NEGATIVE GLUCOSE 50 (A) NEGATIVE mg/dL Influenza Antigen [[id number]] Collected: 10/25/162104 Order Status: Completed Specimen Information: Nasopharyngeal from Nasopharyngeal Cultur e Updated: 10/25/162141 INFLUENZA A NEGATIVE NEGATIVE INFLUENZA B NEGATIVE NEGATIVE Complete Metabolic Panel [[id number]] (Abnormal) Collected: 10/25/162102 Order Status: Completed Specimen [...] (L) >60 mL/min/1.73m2 CBC w Auto Diff [[id number]] (Abnormal) Collected: 10/25/162102 Order Status: Completed Specimen [...] No acute cardiopulmonary process noted. Narrative: JÚNIOR AMS 1940 76 years XR CHEST 2 VIEW [...] fol low up and evaluation [address] [facility] [place] [address] Tita Christopher MD Call in 1 week As needed for further follow up and evaluation [address] [facility] [address] [place] [id number] [facility] Emergency Department If symptoms worsen [address] [facility] [address] Discharge Medications: Discharge Medication List as of [...] Rad Conversion - 06/10/2019 6:48 PM TOMMIE [id number] yearsXR CHEST | | 2 VIEW FRONTAL AND FRDSRFL1110/25/2016 10:32 PM INDICATION: Fever. TECHNIQUE: 2 views [...] EXTERNAL | | | | performed at [facility];888 | | LAB | | | | [address];[place] | | | | | | [address] | | | | + + + + + + | Clarity, | CLEARComment: Testing | | EXTERNAL | | | Urine | performed at [facility];[address] | | LAB | | | | [address];[place] | | | | | | [address] | | | | + + + + + + | Specific | 1.020Comment: Testing | 1.002 - 1.030 | EXTERNAL | | | [place], | performed at [facility];[address] | | LAB | | | Urine | [address];[place] | | | | | | [address] | | | | + + + + + + | Leukocyte | NEGATIVEComment: Testing | | EXTERNAL | | | Esterase, | performed at [facility];[address] | | LAB | | | Urine | [address];[place] | | | | | | [address] | | | | + + + + + + | Nitrite, | NEGATIVEComment: Testing | | EXTERNAL | | | Urine | performed at [facility];[address] | | LAB | | | | [address];[place] | | | | | | [address] | | | | + + + + + + | Urobilinoge | NORMALComment: Testing | mg/dL | EXTERNAL | | | n, Urine | performed at [facility];[address] | | LAB | | | | [address];[place] | | | | | | [address] | | | | + + + + + + | Protein, | NEGATIVEComment: Testing | mg/dL | EXTERNAL | | | Urine | performed at [facility];[address] | | LAB | | | | [address];[place] | | | | | | [address] | | | | + + + + + + | pH, Urine | 5.0Comment: Testing | 5.0 - 8.0 | EXTERNAL | | | | performed at [facility];[address] | | LAB | | | | [address];[place] | | | | | | [address] | | | | + + + + + + | Blood, | NEGATIVEComment: Testing | | EXTERNAL | | | Urine | performed at [facility];[address] | | LAB | | | | [address];[place] | | | | | | [address] | | | | + + + + + + | Ketones | NEGATIVEComment: Testing | mg/dL | EXTERNAL | | | | performed at [facility];[address] | | LAB | | | | [address];[place] | | | | | | [address] | | | | + + + + + + | Bilirubin, | NEGATIVEComment: Testing | | EXTERNAL | | | Urine | performed at [facility];[address] | | LAB | | | | [address];[place] | | | | | | [address] | | | | + + + + + + | Glucose, | 50 (A)Comment: Testing | mg/dL | EXTERNAL | | | Urine | performed at [facility];[address] | | LAB | | | | [address];[place] | | | | | | [address] | | | | + + + [...] | performed by ICA Testing performed at [facility];[address] [facility];[place], [place] | | | [address] INFLUENZA B NEGATIVE | | | Testing performed by ICA Testing performed at [facility];[address] | | | [facility];[place] [address] | | + + + + +---------+ [...] | | | | | [address];[place] [address] | | | | + + + + + + | Non- | 5.15Comment: Testing | 4.20 - 5.70 | EXTERNAL | | | Red Blood | performed at [facility];888 | M/uL | LAB | | | Cells | [address];[place] | | | | | Counted | [address] | | | | + + + + + + | Hemoglobin | 15.7Comment: Testing | 13.2 - 17.0 | EXTERNAL | | | | performed at [facility];888 | g/dL | LAB | | | | [address];[place] | | | | | | [address] | | | | + + + + + + | Hematocrit, | 46.2Comment: Testing | 39.0 - 50.0 % | EXTERNAL | | | POC | performed at [facility];[address] | | LAB | | | | [address];[place] | | | | | | [address] | | | | + + + + + + | MCV | 89.6Comment: Testing | 80.0 - 100.0 fl | EXTERNAL | | | | performed at [facility];[address] | | LAB | | | | [address];[place] | | | | | | [address] | | | | + + + + + + | MCH | 30.4Comment: Testing | 27.0 - 34.0 pg | EXTERNAL | | | | performed at [facility];[address] | | LAB | | | | [address];[place] | | | | | | [address] | | | | + + + + + + | MCHC | 33.9Comment: Testing | 32.0 - 35.5 | EXTERNAL | | | | performed at [facility];888 | g/dL | LAB | | | | [address];[place] | | | | | | [address] | | | | + + + + + + | RDW-CV | 48.1Comment: Testing | 37 - 53 fl | EXTERNAL | | | | performed at [facility];[address] | | LAB | | | | [address];[place] | | | | | | [address] | | | | + + + + + + | Platelet | 99 (L)Comment: Testing | 150 - 400 K/uL | EXTERNAL | | | Count | performed at [facility];[address] | | LAB | | | Plasma | [address];[place] | | | | | | [address] | | | | + + + + + + | MPV | 8.7Comment: Testing | fl | EXTERNAL | | | | performed at [facility];[address] | | LAB | | | | [address];[place] | | | | | | [address] | | | | + + + + + + | Differentia | AUTOMATEDComment: | | EXTERNAL | | | l Type | Testing performed at | | LAB | | | | [facility];[address] | | | [address];[place] [address] | | | | + + + + + + | % Segmented | 83.01Comment: Testing | % | EXTERNAL | | | | performed at [facility];[address] | | LAB | | | Neutrophils | [address];[place] | | | | | | [address] | | | | + + + + + + | % | 8.29Comment: Testing | % | EXTERNAL | | | Lymphocytes | performed at [facility];[address] | | LAB | | | | [address];[place] | | | | | | [address] | | | | + + + + + + | % Monocytes | 7.46Comment: Testing | % | EXTERNAL | | | | performed at [facility];[address] | | LAB | | | | [address];[place] | | | | | | [address] | | | | + + + + + + | % | 0.85Comment: Testing | % | EXTERNAL | | | Eosinophils | performed at [facility];[address] | | LAB | | | | [address];[place] | | | | | | [address] | | | | + + + + + + | % Basophils | 0.39Comment: Testing | % | EXTERNAL | | | | performed at [facility];[address] | | LAB | | | | [address];[place] | | | | | | [address] | | | | + + + + + + | Absolute | 10.02 (H)Comment: | 1.90 - 7.40 | EXTERNAL | | | Segmented | Testing performed at | K/uL | LAB | | | Neutrophils | [facility];[address] | | | | | [address];[place] [address] | | | | + + + + + + | Absolute | 1.00Comment: Testing | 1.00 - 3.90 | EXTERNAL | | | Lymphocytes | performed at [facility];[address] | K/uL | LAB | | | | [address];[place] | | | | | | [address] | | | | + + + + + + | Absolute | 0.90 (H)Comment: Testing | 0.00 - 0.80 | EXTERNAL | | | Monocytes | performed at [facility];[address] | K/uL | LAB | | | | [address];[place] | | | | | | [address] | | | | + + + + + + | Absolute | 0.10Comment: Testing | 0.00 - 0.50 | EXTERNAL | | | Eosinophils | performed at [facility];[address] | K/uL | LAB | | | | [address];[place] | | | | | | [address] | | | | + + + + + + | Absolute | 0.05Comment: Testing | 0.00 - 0.10 | EXTERNAL | | | Basophils | performed at [facility];[address] | K/uL | LAB | | | | [address];[place] | | | | | | [address] | | | | + + + [...] EXTERNAL | | | | performed at [facility];[address] | mmol/L | LAB | | | | [address];[place] | | | | | | [address] | | | | + + + + + + | K | 3.6Comment: Testing | 3.5 - 4.9 | EXTERNAL | | | | performed at [facility];[address] | mmol/L | LAB | | | | [address];[place] | | | | | | [address] | | | | + + + + + + | Cl | 95 (L)Comment: Testing | 99 - 109 mmol/L | EXTERNAL | | | | performed at [facility];[address] | | LAB | | | | [address];[place] | | | | | | [address] | | | | + + + + + + | CO2 | 29Comment: Testing | 23 - 32 mmol/L | EXTERNAL | | | | performed at [facility];[address] | | LAB | | | | [address];[place] | | | | | | [address] | | | | + + + + + + | Anion Gap | 17Comment: Testing | 5 - 20 mmol/L | EXTERNAL | | | | performed at [facility];[address] | | LAB | | | | [address];[place] | | | | | | [address] | | | | + + + + + + | Glucose, | 117 (H)Comment: Testing | 65 - 99 mg/dL | EXTERNAL | | | Fasting | performed at [facility];[address] | | LAB | | | | [address];[place] | | | | | | [address] | | | | + + + + + + | BUN | 25Comment: Testing | 8 - 25 mg/dL | EXTERNAL | | | | performed at [facility];[address] | | LAB | | | | [address];[place] | | | | | | [address] | | | | + + + + + + | Creatinine | 1.6 (H)Comment: Testing | 0.70 - 1.30 | EXTERNAL | | | | performed at [facility];888 | mg/dL | LAB | | | | [address];[place] | | | | | | [address] | | | | + + + + + + | BUN/Creatin | 16Comment: Testing | | EXTERNAL | | | ine Ratio | performed at [facility];[address] | | LAB | | | | [address];[place] | | | | | | [address] | | | | + + + + + + | Calcium | 8.4 (L)Comment: Testing | 8.5 - 10.5 | EXTERNAL | | | | performed at [facility];888 | mg/dL | LAB | | | | [address];[place] | | | | | | [address] | | | | + + + + + + | Protein, | 7.7Comment: Testing | 6.3 - 8.2 g/dL | EXTERNAL | | | Total | performed at [facility];[address] | | LAB | | | | [address];[place] | | | | | | [address] | | | | + + + + + + | Albumin | 3.5Comment: Testing | 3.3 - 4.8 g/dL | EXTERNAL | | | | performed at [facility];[address] | | LAB | | | | [address];[place] | | | | | | [address] | | | | + + + + + + | Globulin | 4.2Comment: Testing | 1.3 - 4.9 g/dL | EXTERNAL | | | | performed at [facility];[address] | | LAB | | | | [address];[place] | | | | | | [address] | | | | + + + + + + | A/G Ratio | 0.8 (L)Comment: Testing | 1.0 - 2.4 | EXTERNAL | | | | performed at [facility];[address] | | LAB | | | | [address];[place] | | | | | | [address] | | | | + + + + + + | Bilirubin | 1.4Comment: Testing | 0.1 - 1.5 mg/dL | EXTERNAL | | | Total | performed at [facility];[address] | | LAB | | | | [address];[place] | | | | | | [address] | | | | + + + + + + | ALP, | 52Comment: Testing | 35 - 115 U/L | EXTERNAL | | | External | performed at [facility];[address] | | LAB | | | | [address];[place] | | | | | | [address] | | | | + + + + + + | AST | 24Comment: Testing | 10 - 45 U/L | EXTERNAL | | | | performed at [facility];[address] | | LAB | | | | [address];[place] | | | | | | [address] | | | | + + + + + + | ALT | 23Comment: Testing | 10 - 65 U/L | EXTERNAL | | | | performed at [facility];[address] | | LAB | | | | [address];[place] | | | | | | [address] | | | | + + + [...] | | | | | | at [facility];[address] | | | | | [address];[place] [address] | | | | + + + [...]
--- OUTSIDE RECORDS SUMMARY | ~2020-08-01 | XMS | Encounter Summary ---
Demographics + + + | Address | [address] | | | [place] [address] | + + + | Home Phone [...] Team Providers + +------+ + | Care Traveling Nurse Name | Role | Phone | + +------+ + PCP | Unavailable | + +------+ + Encounter Details +--------+ + + + + | Date | Type | Department | Care Team | Description | +--------+ + + + + | 10/08/ | Hospital [facility] | Olaf Nicole | | | 2000 - | Encounter | [facility] | MD Amy [address] | | | | | CARDIAC TELEMETRY | [address] | | | 10/09/ | | [address] | [place] [address] | | | 2000 | | [place] | [phone] | | | | | [address] | | | | | | [phone] | | | +--------+ + + + [...]
--- OUTSIDE RECORDS SUMMARY | ~2020-08-01 | XMS | Encounter Summary ---
Demographics + + + | Address | [address] | | | [place] [address] | + + + | Home Phone [...] Team Providers + +------+ + | Care Customs Manager Name | Role | Phone | [...] | | | | Loop [facility] | [place], [place] | | | | | [place], [facility] floor | [address] | | | | | [place], [place] | [phone] | | | | | [address] | | | | | | [phone] | | | +--------+--------+ + + + [...]
--- OUTSIDE RECORDS SUMMARY | ~2020-08-01 | XMS | Encounter Summary ---
Demographics + + + | Address | [address] | | | [place] [address] | + + + | Home Phone [...] Team Providers + +------+ + | Care Forestry Pilot Name | Role | Phone | [...] | | | | Loop Physician's | [place], [place] | | | | | [place], [facility] floor | [address] | | | | | [place], [place] | [phone] | | | | | [address] | | | | | | [phone] | | | +--------+--------+ + + + [...]
--- OUTSIDE RECORDS SUMMARY | ~2020-08-01 | XMS | Encounter Summary ---
Demographics + + + | Address | [address] | | | [place] [address] | + + + | Home Phone [...] Providers + +------+ + | Care Administrative Services Specialist Name | Role | Phone | [...] + + | 03/01/ | Telephone | [facility] | Kristie De Los Santos ANP | Device Check | | 2020 | | [facility] [place] | [address] | | | | | [address] | [place], [place] | | | | | [place], [place] | [address] | | | | | [address] | | | | | | [phone] | | | +--------+ + + + [...]
--- OUTSIDE RECORDS SUMMARY | ~2020-08-01 | XMS | Encounter Summary ---
Demographics + + + | Address | [address] | | | [place] [address] | + + + | Home Phone [...] Author + + + | Author | [facility] | + + + | Organization | [facility] | + + + | Address | Unknown | + + + | Phone | Unavailable | + + + Support + + +---------+ + | Name | Relationship | Address | Phone | + + +---------+ + | Beth Mas | ECON | Unknown | | + + +---------+ + Care Team Providers + +------+ + | Care Osd Clerk Name | Role | Phone | [...] | | | | Loop Physician's | [place], [place] | | | | | [place], [address] floor | [address] | | | | | [place], [place] | [phone] | | | | | [address] | | | | | | [phone] | | | +--------+ + + + [...] Jaye Winchester RN - 06/24/2018 9:43 AM [facility] check in - Transitional Care Management Note ASSESSMENT Spoke with nurse Aguilera at [facility] at [phone]. Verified fax number: [phone] She stated that infusions of Cefazolin 2gm [...] updated lab orders to include CRP to [phone]. NURSING OUTCOME EVALUATION Previous nursing concern(s): no [...] completed without provider involvement Jaye Winchester RN [facility] INFECTIOUS DISEASE PPV INFECTIOUS DISEASES AT [facility] 3RD FLOOR [address] [facility] [place] [address] documented in this en counter Plan of Treatment Not on filedocumented as of this encounter Visit Diagnoses Not on filedocumented in this encounter"
--- OUTSIDE RECORDS SUMMARY | ~2020-08-01 | XMS | Encounter Summary ---
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 No signs of bleeding were noted upon dis continuation of TR band. Pt given discharge paperwork however left this behind. Pt VSS. P t denies pain. Pt discharged to home with spouse. onver zoe Transaction, Provider Unknown - 10/31/2015 1:58 PM PST Progress Notes by Allan Julio RPH at 10/31/15 8898 Author: Allan Julio RPH Service: (none) Author Type: Pharmacist Filed: 10/31/15 3003 Date of Service: 10/31/151357 Status: Signed Countersinker: Allan Julio RPH (Pharmacist) Renal Dosing Monitoring: [...] Date of Service: 10/31/15 1102 Status: Signed Countersinker: Alex Villegas MD (Physician) Merged With [facility] Service: Cardiology Pre-Operative History & Physical [...] 1133 Note Time: 10/18/15 0950 Status: Signed Countersinker: Robel Ricci DO (Physician) Expand All Collapse [...] current dose (simvastatin). DVT (deep venous thrombosis) ([facility]) Hx DVT, right leg, chronic venous insufficiency. On warfarin, managed by PCP. Arterial US, lower Ext, 10/09/2015: TDS, calcification of trifurcation vessels, mild-modera te disease in upper vessels. Diabetes mellitus, type 2 ([facility]) DM2, managed by PCP. F/U with [...] 2 (two) times daily as need ed. 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
--- OUTSIDE RECORDS SUMMARY | ~2020-08-01 | XMS | Encounter Summary ---
Demographics + + + | Address | [address] | | | [place] [address] | + + + | Home Phone [...] Team Providers + +------+ + | Care Nurse Reviewer Name | Role | Phone | + [...] + + | 12/08/ | Telephone | [facility] | Kristie De Los Santos ANP | Device Check | | 2020 | | CARDIOLOGY [place] | [address] | | | | | [address] | [address], [place] | | | | | [place], [place] | [address] | | | | | [address] | | | | | | [phone] | | | +--------+ + + + [...] 2019. Device: Medtronic pacemaker [facility] Plan of Treatment +--------+ + + [...]
--- OUTSIDE RECORDS SUMMARY | ~2020-08-01 | XMS | Encounter Summary ---
Demographics + + + | Address | [address] | | | [place] [address] | + + + | Home Phone [...] + + | Author | [facility] | + + + | Organization | [facility] | + + + | Address | Unknown | + + + | Phone | Unavailable | + + + Support + + +---------+ + | Name | Relationship | Address | Phone | + + +---------+ + | Beth Mas | ECON | Unknown | | + + +---------+ + Care Team Providers + +------+ + | Care Underwriting Support Manager Name | Role | Phone | [...] Jerome | | | | | [facility] | [address] | | | | | Hospital Admitting | [place], [place] | | | | | Desk Located on the | [address] | | | | | 9th floor | [phone] | | | | | [facility] [place] | | | | | | [address] | Princess Ward MD | | | | | | [address] | | | | | | [place], | | | | | | [place] [address] | | | | | | [phone] | | | | | | | [...] Line | Standard; Left; 20g; 06/12/18; | LOAD OUT WORKER | | | | 1617; Per order | | | +--------+ + + + | Periph | 06/12/18; 1323; Right; Wrist; 20 | 06/12/18 1323 by | 06/14/181999 by | | eral | g; 06/14/18; 1999 | Robel Page, | Gabriel Zapata RN | | IV | | LOAD OUT WORKER | | +--------+ + + + | [...] be different from the original. Duane Mas [id number] Allergies Allergen Reactions Sulfa (Sulfonamide Antibiotics) Rash [...] Performed by Laureen GRAHAM. nesthesia Procedure N otashely - Sen Owens MD - 06/12/2018 12:59 [...] b e different from the original. 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
--- OUTSIDE RECORDS SUMMARY | ~2020-08-01 | XMS | Encounter Summary ---
Demographics + + + | Address | [address] | | | [place] [address] | + + + | Home Phone [...] Team Providers + +------+ + | Care Rubber Tubing Splicer Name | Role | Phone | + [...] | | | | Loop Physician's | [place], [place] | | | | | [place], [facility] floor | [address] | | | | | [place], [place] | [phone] | | | | | [address] | | | | | | [phone] | | | +--------+ + + + [...] [place], FLY - 06/30/2018 2:09 PM [facility]TCalled [facility] and was informed that the patient left their facility on 06/26/18 because he met h is PT needs. We were not notified. Pt is now under the care of [facility] P [phone] F [phone] and [facility] P [phone] F [phone]. I called and spoke to Joslyn at [facility] She stated that the patient had his PICC dress ing changed today but that they have not drawn labs as they do not have orders yet. She also said that [facility] is providing the IV cefazolin. I called [facility] and spoke to Jaquelin, who said that this patient is not on service with them. She recommended calling the [facility] office in [place]. I called and spoke to Rosalind, pharmacist at [place] office who confirmed that they have the p atient on their service. Abx/PMSO have been faxed to both [facility] and [facility]. Jaye Winchester RN elephone Encounter - [...]
--- OUTSIDE RECORDS SUMMARY | ~2020-08-01 | XMS | Encounter Summary ---
Demographics + + + | Address | [address] | | | [place] [address] | + + + | Home Phone | | + + + | Preferred Language | Unknown | + + + | Marital Status | Unknown | + + + | Amish Affiliation | PRO | + + + | Race | White | + + + | Ethnic Group | Not or | + + + Author + + + | Author | [facility] | + + + | Organization | [facility] | + + + | Address | Unknown | + + + | Phone | Unavailable | + + + Support + + +---------+ + | Name | Relationship | Address | Phone | + + +---------+ + | Beth Mas | ECON | Unknown | | + + +---------+ + Care Team Providers + +------+ + | Care Patent Searcher Name | Role | Phone | + [...] | | | | Loop Physician's | [place], [place] | | | | | Pavilion, 3rd floor | [address] | | | | | [place], [place] | [phone] | | | | | [address] | | | | | | [phone] | | | +--------+ + + + [...] Cottrell Ma - 06/24/2018 12:[address] [facility] system of care. Please contact [facility] ID at phone: [phone]; fa x: [phone] with any questions or concerns regarding this [...] sh e is fine w/ coming to [place] twice in a week as there were unsuccessful attempts at setti ng up joint appt. Care Coordination issues needing clarification: none when asked. elephone Encounter - Layne Huang - 06/18/2018 4:10 PM PDTDr. Rinkuwilliam only sees pts at [facility] on '. Could a provide r see the pt as a joint on , 07/23? elephone Encounter - Jaye Winchester RN - 06/17/2018 1:05 PM PDTFormatting o f this note might be different from the original. 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 During t hat time,we will cooridnate so that he may follow up with ID/OPAT in regards to his treatmen t. He will be discharged to [facility] to receive inpatient therapy and OPAT. Recommendations: 1. Change Cefazolin 2g IV q8 hours, with renal adjustments as required 2. Tentative duration of Cefazolin will be 6 weeks from the time of surgery (SOT: 06/12 - [place] T: 07/24) 3. Discussed with patient that OPAT can cont. at [facility]. If patient is discharged fr om [...]
--- OUTSIDE RECORDS SUMMARY | ~2020-08-01 | XMS | Encounter Summary ---
Demographics + + + | Address | [address] | | | [place] [address] | + + + | Home Phone [...] Team Providers + +------+ + | Care Timber Buyer Name | Role | Phone | + +------+ + | Erin Forrester MD | PCP | | + +------+ + Encounter Details +--------+ + + + + | Date | Type | Department | Care Team | Description | +--------+ + + + + | 03/08/ | Orders Only | [facility] | Conversion | | | 2019 | | NEPHROLOGY RAMBO | Transaction, | | | | | [address] | Provider Unknown | | | | | [address] | [phone] | | | | | [address] | | | | | | [phone] | | | +--------+ + + + [...]
--- OUTSIDE RECORDS SUMMARY | ~2020-08-01 | XMS | Encounter Summary ---
Demographics + + + | Address | [address] | | | [place] [address] | + + + | Home Phone [...] Author + + + | Author | [facility] | + + + | Organization | [facility] | + + + | Address | Unknown | + + + | Phone | Unavailable | + + + Support + + +---------+ + | Name | Relationship | Address | Phone | + + +---------+ + | Beth Mas | ECON | Unknown | | + + +---------+ + Care Team Providers + +------+ + | Care Ordnance Truck Installation Supervisor Name | Role | Phone | [...] [facility] | | | | | | [facility] | | | | | | and Healing, | | | | | | Building [address], 5th | | | | | | Floor [place], [place] | | | | | | [address] | | | | | | [phone] | | | +--------+ + + + [...] punch | | | | | | oljbbfp-yuxt-fyg skin, | | | | | | [...] [facility] | [address] | [place] | | | DERMATOPATHOLOGY | [address] | | | + + + + + | [facility] | [address]code [address] | [place] [address] | | | DERMATOPATHOLOGY | [address] | | | + + + + + documented in this encounter Visit Diagnoses + + | Diagnosis | + + | Other specified dermatitis | + + documented in this encounter
--- OUTSIDE RECORDS SUMMARY | ~2020-08-01 | XMS | Encounter Summary ---
Demographics + + + | Address | [address] | | | [place] [address] | + + + | Home Phone | | + + + | Preferred Language | Unknown | + + + | Marital Status | Unknown | + + + | Uatsdin Affiliation | PRO | + + + [...] Team Providers + +------+ + | Care Instrument Maker And Repairer Name | Role | Phone [...] | | | | Loop Physician's | [place], [place] | | | | | [place], [facility] floor | [address] | | | | | [place], [place] | [phone] | | | | | [address] | | | | | | [phone] | | | +--------+ + + + [...] that the patient has been admitted to [facility] as of yesterday. He is in room [...]
--- OUTSIDE RECORDS SUMMARY | ~2020-08-01 | XMS | Encounter Summary ---
Demographics + + + | Address | [address] | | | [place] [address] | + + + | Home Phone [...] Team Providers + +------+ + | Care Ct Technologist Name | Role | Phone | [...] | | | | Loop Physician's | [place], [place] | | | | | Pavilion, 3rd floor | [address] | | | | | [place], [place] | [phone] | | | | | [address] | | | | | | [phone] | | | +--------+ + + + [...] 07/27/2018 9:17 AM PDTSpoke with Cierra fernando [facility] [phone] and she confirmed that the patient's PICC line is being pulled t his morning. I will call back to for confirmation this afternoon. documented in this encounter Plan of Treatment Not on filedocumented as of this encounter Visit Diagnoses Not on filedocumented in this encounter"
--- OUTSIDE RECORDS SUMMARY | ~2020-08-01 | XMS | Encounter Summary ---
Demographics + + + | Address | [address] | | | [place] [address] | + + + | Home Phone | | + + + | Preferred Language | Unknown | + + + | Marital Status | Unknown | + + + | Jewish Affiliation | PRO | + + + [...] Team Providers + +------+ + | Care Outreach Representative Name | Role | Phone | [...] | 2018 | | [address] | [address] | POSSIBLE COMPONENT | | | | Rd [facility] Main | [facility] [place] | EXCHANGE, POSSIBLE | | | | Hospital Admitting | [address] | REVISION | | | | Desk Located on the | [phone] | | | | | 9th floor | | | | | | [place], [place] | | | | | | [address] | | | +--------+---------+ + + + [...] | | 0 | | | | no.[id number]-ipnprlc9c-prj-nwi | mouth once daily. | | | [...] Leon who advised PT to come to [facility] ED. Advised Dr. Yen to call [...]
--- OUTSIDE RECORDS SUMMARY | ~2020-08-01 | XMS | Clinical Summary ---
Demographics + + + | Address | [address] | | | [place] [address] | + + + | Home Phone [...] Team Providers + +------+ + | Care Imaging Aide Name | Role | Phone | + +------+ + | Gilberto Estrada MD | PCP | | + +------+ + Source Comments WHITNEY is fully live on both [facility] Ambulatory and [facility] InPatient.[facility] Allergies + + + + + + | Active Allergy | Reactions | Severity | Noted | Comments | | | | | Date | | + + + + + + | Nsaids | Renal Failure | High | 06/14/20 | Avoid per | | (Non-Steroidal | | | 18 | Relay Tester Helper | | Anti-Inflammatory | | | | [...] 0 | | | Activ | | no.[id number]-xjszray2u-udy-alf | mouth once daily. 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 to | 06/11/2018 | [...] Right: | MARIALUISA | | 11/26/ | 3986-G | | 13mm Implanted: Qty: 1 on | | Knee | | | 2019 | -513 / | | 06/12/2018 by Sandoval Hyde | | | | | | | | MD Leanne at [facility] REV | | | | | | [...] + +--------+ | MEDICARE | MEDICA | [id number] | 01/26/20 | [phone] | [address] | Medica | | | RE A & | | 15-Pre | 1 | [address] | re | | | B | | sent | | [place]ÓN [address]ulveda | | | | | | | | [address]2011 | | + +--------+ +--------+ + +--------+ | COMMERCIAL GROUP | COMMER | [id number] | 10/27/19 | | | Indemn | [...] Person | Self | [birth year] | [address] | | | al/Fam | | 1940 | [phone] | [place] [address] | | | afshan | | | [...]
--- OUTSIDE RECORDS SUMMARY | ~2020-08-01 | XMS | Encounter Summary ---
Demographics + + + | Address | [address] | | | [place] [address] | + + + | Home Phone [...] + + + | Author | [facility] | | | and [place] | + + + | Organization | [facility] | | [...] Team Providers + +------+ + | Care Automatic Log Cut Off Sawyer Name | Role | Phone | + [...] | | | | | | | CO | | | | | | | ESOPHAGOGAST | | | | | | | RODUODENOSCO | | | | | | | PY TRANSORAL | | | | | | | DIAGNOSTIC | | | | | | | CO EGD | | | | | | | TRANSORAL | | | | | | | BIOPSY | | | | | | | SINGLE/MULTI | | | | | | | PLE CO EGD | | | | | | | BALLOON | | | | | | | DILATION | | | | | | | ESOPHAGUS | | | | | | | <30 MM DIAM | | | | | | | CO | | | | | | | [...] + + | 02/10/ | Hospital | [facility] | Willow Colin MD | | | 2019 | Encounter | [facility] | [address] | | | | | [address] | [address] [place], | | | | | [place] | [place] [address] | | | | | [address] | [phone] | | | | | [phone] | | | +--------+ + + + [...] You can't be awakened Date Last Reviewed: 08/13/201619997806-9021 [employer]. [address] [place] [address]. All righ ts reserved. This information is [...] you take. This includes prescription medicines, o vkw-gud-algtjbo medicines, herbs, vitamins, and other supplements. Be [...] icine to relax you. The procedure takes nvfwt53egvqerm. It does not cause trouble breath ing. [...] Black, tarry, or bloodystools Date Last Reviewed: 04/26/201619996662-5017 [employer]. [address] [place] [address], [place] [address]. All righ ts reserved. This information is [...] prescription medicines Herbs, vitamins, and other supplements Jldk-zmj-wshwlqv medicines such as aspirin or ibuprofen Street [...] heart or lung disease Date Last Reviewed: 05/27/201719991519-1935 [employer]. [address] [place] [address]. All righ ts reserved. This information is [...] by: Willow Colin MD, 02/10/2019 13:00 [facility]ron[facility] signed by Willow Colin MD at [...] + + + | [address] | [address] [place] [address] | [place] [address] | [phone] | | [facility] | | | [...] + | [address] | [address] | [place] | [phone] | | [facility] | | [address] | | | - LABORATORY | | | | + + + + + Surgical Pathology Exam (02/10/2019 12:00 AM PDT) + + | Specimen | + + | | + + + + + | Narrative | Performed At | + + + | SPECIMEN(S): A GASTRIC BIOPSY SPECIMEN SOURCE: A. GASTRIC | IN PATHOLOGY | | BIOPSY CLINICAL HISTORY: R13.10 [...] technical and professional components were performed by [employer] | | | [place], [address] [place] [address] | | | (Voice Intercept Technician: Don Morrell D.O.; CLIA#: [id number]). | | | Diagnostician: Gely Cerna MD [...]
--- OUTSIDE RECORDS SUMMARY | ~2020-08-01 | XMS | Encounter Summary ---
Demographics + + + | Address | [address] | | | [place] [address] | + + + | Home Phone [...] Team Providers + +------+ + | Care Cooker Pie Filling Name | Role | Phone | + +------+ + | Gilberto Estrada MD | PCP | | + +------+ + Encounter Details +--------+ + + + + | Date | Type | Department | Care Team | Description | +--------+ + + + + | 06/11/ | Emergency | [facility] Emergency | Sandoval Hyde, | | | 2017 | | Department [address] | [address] | | | | | [address] | [place], [place] | | | | | [facility] | [address] | | | | | [place], [place] | [phone] | | | | | [address] | | | | | | [phone] | | | +--------+ + + + [...] | | 0 | | | | no.42-derd9z-akqcfil9d-zfj-mah | mouth once daily. | | | [...] Leon who advised PT to come to [facility] ED. Advised Dr. Yen to call [...]
--- OUTSIDE RECORDS SUMMARY | ~2020-08-01 | XMS | Encounter Summary ---
Demographics + + + | Address | [address] | | | [place] [address] | + + + | Home Phone [...] Team Providers + +------+ + | Care Human Relations Professor Name | Role | Phone | + [...] [address] | | | | | [address] | [address] | | | | | Loop Physician's | [place], [place] | | | | | [place], [email or web address] floor | [address] | | | | | [place], [place] | [phone] | | | | | [address] | | | | | | [phone] | | | +--------+ + + + [...]
--- OUTSIDE RECORDS SUMMARY | ~2020-08-01 | XMS | Encounter Summary ---
Demographics + + + | Address | [address] | | | [place] [address] | + + + | Home Phone | | + + + | Preferred Language | Unknown | + + + | Marital Status | | + + + | Congregational Affiliation | 1077 | + + + | Race | White | + + + | Ethnic Group | Not or | + + + Author + + + | Author | [facility] | | | and [place] | + + + | Organization | [facility] | | [...] Team Providers + +------+ + | Care Industrial Organization Manager Name | Role | Phone | [...] | | | | | [address] | [address] | | | | | [place] | [place] [address] | | | | | [address] | [phone] | | | | | [phone] | | | +--------+ + + + [...] EVALUATION Duane Mas 78 y.o. male 1940 [id number] Procedure(s): EGD DIL (N/A Mouth) Medical,anesthesia, drug, allergy histories reviewed, NPO status verified. ECG reviewed. Labs reviewed. (+) perioperative beta-afua/statin given/taken. . Review of Systems / Med History Anesthesia History EGD in 2017 - did well with TIVA. Cardiovascular (+) orthopnea, pacemaker (Medtronic) (+) Dysrhythmias: (+) hypertension, (+) coronary fior ry disease (s/p PTCA and CABG) of [place] artery. (+) congestive heart failure. . Pulmonary [...]
--- OUTSIDE RECORDS SUMMARY | ~2020-08-01 | XMS | Encounter Summary ---
Demographics + + + | Address | [address] | | | [place] [address] | + + + | Home Phone [...] Team Providers + +------+ + | Care Barrel Tester Name | Role | Phone | + +------+ + PCP | Unavailable | + +------+ + Encounter Details +--------+ + + + + | Date | Type | Department | Care Team | Description | +--------+ + + + + | 09/03/ | Hospital | [facility] | Conversion | | | 2012 | Encounter | CENTER [facility] | Transaction, | | | | | CLINIC [address] | Provider Unknown | | | | | [place], [place] | | | | | | [address] | (Fax) | | | | | [phone] | | | +--------+ + + + [...] 09/03/131419 Date of Service: 09/03/131419 Status: Signed Pharmaceutical Engineer: Manasa Andrade RN (Registered Nurse) Uses abimael [...] LAB | | Testing performed at [facility];[address] [place] [address];[place] [address] MRSA PCR | | | NEGATIVE Testing performed at | | | [facility];[address] [place] [address];[place] [address] | | + + + + +---------+ + + | Performing | Address | City/State/Zipcode | Phone Number | | Organization | | | | + +---------+ + + | EXTERNAL LAB | | | | + +---------+ + + documented in this encounter Visit Diagnoses Not on filedocumented in this encounter"
--- OUTSIDE RECORDS SUMMARY | ~2020-08-01 | XMS | Encounter Summary ---
Demographics + + + | Address | [address] | | | [place] [address] | + + + | Home Phone [...] + + + | Author | [facility] | | | and [place] | + + + | Organization | [facility] | | | and [...] Team Providers + +------+ + | Care Bioinformatics Computer Scientist Name | Role | Phone | + +------+ + | Erin Forrester MD | PCP | | + +------+ + Encounter Details +--------+ + + + + | Date | Type | Department | Care Team | Description | +--------+ + + + + | 07/18/ | Documentati | [facility] | Bobbi Palacio, | | | 2020 | on | CARDIOLOGY AARON Cheung MD [address] | | | | | [address] | [place] | | | | | [place], [place] | [address] | | | | | [address] | | | | | | [phone] | | | +--------+ + + + [...] + documented in this encounter Results [place] Complete (07/18/2020 1:15 PM PDT) + + + | Narrative | Performed At | + + + | [place] DONE AT | | | [facility] | | + + + documented in this encounter Visit Diagnoses Not on filedocumented in this encounter"
--- OUTSIDE RECORDS SUMMARY | ~2020-08-01 | XMS | Encounter Summary ---
Demographics + + + | Address | [address] | | | [place] [address] | + + + | Home Phone [...] Team Providers + +------+ + | Care Sponge Buffer Name | Role | Phone | + [...] | | | | | | PLE [place] EGD | | | | | [...] + + + + | 02/08/ | [facility] | [facility] | Willow Colin MD | | | 2019 | Encounter | MED CTR OR PRE OP | [address] | | | | | [address] | [address], | | | | | [place] [address] | [place] [address] | | | | | [phone] | [phone] | | | | | | | [...] TREV[place]. | [address] | [place] | [phone] | | [facility] | | [address] | | | - LABORATORY | | [...]
--- OUTSIDE RECORDS SUMMARY | ~2020-08-01 | XMS | Encounter Summary ---
Demographics + + + | Address | [address] | | | [place] [address] | + + + | Home Phone [...] Team Providers + +------+ + | Care Occupational Health Nurse Supervisor Name | Role | Phone | [...] [facility] | | | | | | [facility] | | | | | | and Healing, | | | | | | Building 1, 5th | | | | | | Floor [place], [place] | | | | | | [address] | | | | | | [phone] | | | +--------+ + + + [...] [facility] | [address] | [place] [address] | | | DERMATOPATHOLOGY | [address] | | | + + + + + | [facility] | Mary [address] | [place] [address] | | | DERMATOPATHOLOGY | [address] | | | + + + + + documented in this encounter Visit Diagnoses Not on filedocumented in this encounter"
--- OUTSIDE RECORDS SUMMARY | ~2020-08-01 | XMS | Encounter Summary ---
Demographics + + + | Address | [address] | | | [place] [address] | + + + | Home Phone [...] Team Providers + +------+ + | Care Crop Consultant Name | Role | Phone | [...] | 2018 | Event | [address] [facility] | [address] | | | | | Jr [facility] | [facility] | | | | | Hospital Admitting | [place], [place] | | | | | Desk Located on the | [address] | | | | | 9th floor | [phone] | | | | | [place], [place] | | | | | | [address] | | | +--------+ + + + [...]
--- OUTSIDE RECORDS SUMMARY | ~2020-08-01 | XMS | Encounter Summary ---
Demographics + + + | Address | [address] | | | [place] [address] | + + + | Home Phone [...] + + + | Author | [facility] | | | and [place] | + + + | Organization | [facility] | | | and [...] Team Providers + +------+ + | Care Services Host Name | Role | Phone | + [...] Provider Unknown | | | | | [place] | | | | | | [address] | (Fax) | | | | | [phone] | | | +--------+ + + + [...]
--- OUTSIDE RECORDS SUMMARY | ~2020-08-01 | XMS | Encounter Summary ---
Demographics + + + | Address | [address] | | | [place] [address] | + + + | Home Phone [...] Team Providers + +------+ + | Care Preventive Maintenance Coordinator Name | Role | Phone | + +------+ + | Erin Forrester MD | PCP | | + +------+ + Encounter Details +--------+ + + + + | Date | Type | Department | Care Team | Description | +--------+ + + + + | 02/12/ | Orders Only | [facility] | Mikal Calix MD | | | 2018 | | NEPRHOLOGY [place] | [address] | | | | | [address] | [address] [place], [place] | | | | | [address] [place], [place] | [address] | | | | | [address] | | | | | | [phone] | | | +--------+ + + + [...] Procedure | Cardiology | | | | 2021 | visit | | | | +--------+ [...]
--- OUTSIDE RECORDS SUMMARY | ~2020-08-01 | XMS | Encounter Summary ---
Demographics + + + | Address | [address] | | | [place] [address] | + + + | Home Phone [...] Team Providers + +------+ + | Care Wire Spiral Binder Name | Role | Phone | [...] | | | [address] | [facility] [address] | orders) | | | | Loop Physician's | [place], [place] | | | | | [place], [facility] floor | [address] | | | | | [place], [place] | [phone] | | | | | [address] | | | | | | [phone] | | | +--------+ + + + [...]
--- OUTSIDE RECORDS SUMMARY | ~2020-08-01 | XMS | Encounter Summary ---
Demographics + + + | Address | [address] | | | [place] [address] | + + + | Home Phone [...] Team Providers + +------+ + | Care Fiberglass Machine Operator Name | Role | Phone [...] | | | | | [place], | | | | | | [place] [address] | | | +--------+--------+ + + + [...]
--- OUTSIDE RECORDS SUMMARY | ~2020-08-01 | XMS | Encounter Summary ---
Demographics + + + | Address | [address] | | | [place] [address] | + + + | Home Phone [...] Providers + +------+ + | Care Quality Control Chemist Name | Role | Phone | + +------+ + | Erin Forrester MD | PCP | | + +------+ + Encounter Details +--------+ + + + + | Date | Type | Department | Care Team | Description | +--------+ + + + + | 10/09/ | Orders Only | [facility] | Robel Ricci | | | 2014 | | CARDIOLOGY [place] | [address] | | | | | [place] [address] | [address] | | | | | [address] | [place] [address] | | | | | [address] | [phone] | | | | | [phone] | | | +--------+ + + + [...] | with evidence of 1-49% stenosis. Right CLOTH SECONDS SORTER: The right common femoral | | | [...] patent with evidence of 1-49% stenosis. Left CLOTH SECONDS SORTER: | | | The left common femoral [...] GOPAL PS: 82.62 cm/s | | | CLOTH SECONDS SORTER AC: 28 deg CLOTH SECONDS SORTER AC: 39 deg CLOTH SECONDS SORTER PS: 82.56 cm/s CLOTH SECONDS SORTER PS: | | | 91.14 cm/s NADIYA [...] | | cm/s Pop PS: 66.08 cm/s ENGINEERING AID AC: 60 deg ENGINEERING AID AC: 54 deg | | | ENGINEERING AID PS: 104.11 cm/s ENGINEERING AID PS: 70.22 cm/s SFA AC: 60 deg [...] AO | | | mid-dist: 1.83 cm Car Audio Installer: MANDEEP Authenticated by: | | | Betina Falk MD Report Date/Time: -- | | | [id number] | | + + + + + [...] with evidence of 1-49% | | stenosis.Right CLOTH SECONDS SORTER: The right common femoral artery is patent [...] patent with evidence of 1-49% stenosis. Left CLOTH SECONDS SORTER: The | | left common femoral artery [...] | | 0.92 cmAO mid-dist: 1.83 cm Car Audio Installer: FEMIuthenticated by: Betina Falk | | MDReport Date/Time: -- [id number] IMPRESSION: 1. This was a technically | [...] medial calcification of the trifurcation vessels. | |CLOTH SECONDS SORTER AC: 39 deg | |CLOTH SECONDS SORTER PS: 82.56 cm/s | |CLOTH SECONDS SORTER PS: 91.14 cm/s | |NADIYA AC: 60 [...] cm/s | |Pop PS: 66.08 cm/s | |ENGINEERING AID AC: 60 deg | |ENGINEERING AID AC: 54 deg | |ENGINEERING AID PS: 104.11 cm/s | |ENGINEERING AID PS: 70.22 cm/s | |SFA AC: 60 [...] |AO mid-dist: 1.83 cm | | | |Car Audio Installer: MANDEEP | |Authenticated by: Betina Falk MD | |Report Date/Time: -- [id number] | | | |IMPRESSION: | |1. This [...]
--- OUTSIDE RECORDS SUMMARY | ~2020-08-01 | XMS | Encounter Summary ---
Demographics + + + | Address | [address] | | | [place] [address] | + + + | Home Phone [...] Team Providers + +------+ + | Care Cardiology Nurse Practitioner Name | Role | Phone | + +------+ + | Erin Forrester MD | PCP | | + +------+ + Encounter Details +--------+ + + + + | Date | Type | Department | Care Team | Description | +--------+ + + + + | 09/12/ | Orders Only | [facility] | Robel Ricci | | | 2015 | | CARDIOLOGY [place] | [address] | | | | | [address] | [address] | | | | | [address] | [place] [address] | | | | | [address] | [phone] | | | | | [phone] | | | +--------+ + + + [...] | | | | | by [facility] [place] Read Only, | | | | | | [facility] Kiran (502), | | | | | | newspaper copy editor Demetri Norton | | | | | | (253) on 10/08/2016 | | | | | | 8:28:04 AM | | | | + + + + + + + + | Specimen | + + | | + + + + + | Narrative | Performed At | + + + | Historically converted procedure from [facility] environment | EXTERNAL LAB | + + + + +---------+ + + | Performing | Address | City/State/Zipcode | Phone Number | | Organization | | | | + +---------+ + + | EXTERNAL LAB | | | | + +---------+ + + documented in this encounter Visit Diagnoses Not on filedocumented in this encounter"
--- OUTSIDE RECORDS SUMMARY | ~2020-08-01 | XMS | Encounter Summary ---
Demographics + + + | Address | [address] | | | [place] [address] | + + + | Home Phone [...] Team Providers + +------+ + | Care Bar Staff Name | Role | Phone | + +------+ + PCP | Unavailable | + +------+ + Encounter Details +--------+ + + + + | Date | Type | Department | Care Team | Description | +--------+ + + + + | 09/07/ | Hospital | [facility] | Drew Hurst | | | 2012 - | Encounter | CENTER SURGICAL [address] | [address] | | | | | [address] | [place] | | | 09/09/ | | [facility] | [place] [address] | | | 2012 | | [address] | [phone] | | | | | [phone] | | | +--------+ + + + [...] Summaries by Drew Hurst MD at 09/09/13 5236 Author: Drew Hurst MD Service: Orthopedic Surgery Author Type: Physician Filed: 09/09/13 0941 Date of Service: 09/09/13 0939 Status: Signed Food Handler: Drew Hurst MD (Physician) [facility] Service: Orthopedic Surgery Discharge Summary Date [...] - TOTAL; Surgeon: Drew Hurst MD; Location: [facility] MAIN OR; Servic e: Orthopedics; [...] up: 7-10 days with Drew Hurst MD (legal executive assistant Alison Tompkins) [facility] [address] [place] [address] . 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 All discharge instructions to includ e medications and appointments reviewed with patient and his . Prescriptions given to wi fe. PIV removed, catheter intact, bandage applied. All questions answered. onver z[place] Transaction, Provider Unknown - 09/09/2013 11:37 AM PST Case Management by Rita Borja RN at 09/09/13 597 Author: Rita Borja RN Service: (none) Author Type: Registered Nurse Filed: 09/09/13 1138 Date of Service: 09/09/131136 Status: Signed Food Handler: Rita Borja RN (Registered Nurse) HEMANT Iqbal [...] Date of Service: 09/09/13 1032 Status: Signed Food Handler: Marta Lopez RN (Registered Nurse) CHF education completed with patient and his , packet given to patient. All questions a nswered onver zoe Transaction, Provider Unknown - 09/09/2013 10:10 AM PST Progress Notes by Shayla Hennessy LPN at 09/09/13 1010 Author: Shayla Hennessy LPN Service: (none) Author Type: Registered Nurse Filed: 09/09/13 1010 Date of Service: 09/09/13 1010 Status: Signed Food Handler: Shayla Hennessy LPN (Registered Nurse) Visited with pt this am regarding warfarin education. [facility]. Pt has no questions regarding warfarin at this time. onver zoe Transaction, Provider Unknown - 09/09/2013 9:55 AM PST Progress Notes by Irina Cooley PTA at 09/09/13 0955 Author: Irina Cooley PTA Service: (none) Author Type: Clerical Transcriber Filed: 09/09/13 1310 Date of Service: 09/09/13 0955 Status: Signed Food Handler: Irina Cooley PTA (Clerical Transcriber) 09/09/13 0955 PT Last Visit PT Received [...] 09/09/13938 Date of Service: 09/09/13937 Status: Signed Food Handler: Drew Hurst MD (Physician) Subjective: Post-Operative Day: [...] Will get INR checked on Friday in [place]. DREW HURST MD 09/09/2013 9:38 AM onversio n Transaction, Provider Unknown - 09/08/2013 1:16 PM PSTFormatting of this note might be di fferent from the original. Progress Notes by Ale Yee RD, CDE at 09/08/13 1316 Author: Ale Yee RD, VEDA Service: (none) Author Type: Reliner Filed: 09/08/13 9708 Date of Service: 09/08/131315 Status: Signed Food Handler: Ale Yee RD, CDE (Reliner) Met with pt and spouse. Reports he [...] and metformin. Ale Yee RD, MPH, CDE, Reliner 09/08/2013 1:39 PM onver zoe Transaction, Provider Unknown - 09/08/2013 12:35 PM PST Progress Notes by Mireya Hoyos PT at 09/08/13 1235 Author: Mireya Hoyos PT Service: (none) Author Type: Physical Therapist Filed: 09/08/13 1410 Date of Service: 09/08/13 1235 Status: Signed Food Handler: Mireya Hoyos PT (Physical Therapist) 09/08/13 1235 PT Last Visit PT Received On 09/08/13 Reason for Treatment Knee replacement Requires PT Follow Up Yes Follow up PT Only? No Assistance Required 1 person Nutritional Services Cook Needed No Precautions LE Precaution(s) RLE (WBAT [...] exercise: Marching, LAQ, Heel raises, Glut squeezes: [id number] Standing exercise: Marching, Hip Abd, Hip ext: [id number] Patients actively encouraged each other throughout activities [...] Date of Service: 09/08/13 1143 Status: Signed Food Handler: Drew Hurst MD (Physician) Subjective: Post-Operative Day: [...] Author: ABBIE Delgado Service: (none) Author Type: Farmworker Vegetable Filed: 09/08/1347 Date of Service: 09/08/13845 Status: Signed Food Handler: ABBIE Delgado (Farmworker Vegetable) CM met with pt for discharge planning. Pt is 73 years old and lives with his in a 2-le alan home with a ramp at the main entrance. Pt has a crru-xr-smbjwr. Pt owns a walker. Pt's w mike will assist with his daily living activities including personal hygiene, grooming, dress ing, feeding, cooking, transportation and ambulation. Pt had no resource concerns at this ti me. CM will continue to follow as needed. Discharge Plan: Home. Eric Sanabria CORE JAVA ENGINEER 09/08/13 0846 Discharge Planning Evaluation Admitting Diagnosis [...] Notes by Mireya Hoyos PT at 09/08/13 0806 Author: Mireya Hoyos PT Service: (none) Author Type: Physical Therapist Filed: 09/08/13 1795 Date of Service: 09/08/13 0809 Status: Signed Food Handler: Mireya Hoyos PT (Physical Therapist) 09/08/13 0807 PT Last Visit PT Received On 09/08/13 Reason for Treatment Knee replacement Requires PT Follow Up Yes Follow up PT Only? No Assistance Required 1 person Nutritional Services Cook Needed No Precautions LE Precaution(s) RLE (WBAT [...] 09/07/132032 Date of Service: 09/07/132030 Status: Signed Food Handler: Jeimy Ayala RN (Registered Nurse) Spoke with [...] 161 Date of Service: 09/07/131610 Status: Signed Food Handler: ILSA Wallace (Occupational Therapist) 09/07/13 1343 Plan Requires OT Follow Up Unavailable (Pt with PT ) Pt unavailable upon OT arrival. Plan to re-attempt evaluation/treatment as census permits ILSA Wallace 09/07/2013 onver zoe Transaction, Provider Unknown - 09/07/2013 1:25 PM PST Progress Notes by Gilberto Carl, PT at 09/07/13 1325 Author: Gilberto Carl PT Service: (none) Author Type: Physical Therapist Filed: 09/07/13 1667 Date of Service: 09/07/13 1325 Status: Signed Food Handler: Gilberto Carl PT (Physical Therapist) 09/07/13 1325 PT Last Visit PT Received On 09/07/13 Reason for Treatment Knee replacement Requires PT Follow Up Yes PT Eval/Reassessment Date 09/07/13 Nutritional Services Cook Needed No Precautions LE Precaution(s) RLE (WBAT) [...] chair with back Prior Function Level of [place] Modified independent with functional mobility (Pt used SPC prior to sx) Lives With Spouse Employment Retired for age ([employer] full-time) RUE Assessment RUE Assessment WFL (rotator [...] Follow Up Yes PT Eval/Reassessment Date 09/07/13 Nutritional Services Cook Needed No Precautions LE Precaution(s) RLE (WBAT) [...] Date of Service: 09/07/13 1257 Status: Signed Food Handler: Shelly Rojo RPH (Pharmacist) Renal Dosing Monitoring: [...] H&P by Drew Hurst MD at 09/06/13 7871 Author: Drew Hurst MD Service: Orthopedic Surgery Author Type: Physician Filed: 09/06/13 3705 Date of Service: 09/06/131624 Status: Signed Food Handler: Drew Hurst MD (Physician) Subjective: Patient is [...] Patient has been treat ed conservatively with [id number] NSAIDs and activity modification. Patient currently rates [...] (none) Author Type: Registered Nurse Filed: 09/07/13 1231 Date of Service: 09/07/131235 Status: Signed Food Handler: Jeimy Ayala RN (Registered Nurse) Problem: Safety [...] 1001 Date of Service: 09/07/13957 Status: Signed Food Handler: Drew Hurst MD (Physician) [facility] Service: Orthopedic Surgery Operative Report PREOPERATIVE DIAGNOSIS: right knee DJD POSTOPERATIVE DIAGNOSIS: right knee DJD PROCEDURE: right total knee arthroplasty with navigation SURGEON: Drew Hurst MD HOSPITAL INSURANCE CLERK: Kaur Del Angel MD ANESTHESIA: General ANESTHESIOLOGIST: Gopal AGUILAR FLUIDS: 1500cc ESTIMATED BLOOD LOSS: minimal TOURNIQUET TIME: 90 min Right thigh URINE OUTPUT: 250cc COMPLICATIONS: none IMPLANTS: [place] Triathlon Total Knee system 1- Size 4 [...] cutting block and made my cuts: anterior, clipper operator ior, anterior chamfer, and posterior chamfer. I removed the bony fragments, then placed a l aminar handle assembler in the flexion gap and removed the [...] of three liters sterile saline with pulse export documents clerk. There was no patellar maltracking. Floseal was [...] extubated. The patient was placed back to [facility] bed, and taken to the recovery [...]
--- OUTSIDE RECORDS SUMMARY | ~2020-08-01 | XMS | Encounter Summary ---
Demographics + + + | Address | [address] | | | [place] [address] | + + + | Home Phone [...] Providers + +------+ + | Care Director Business Development Name | Role | Phone | + [...] [address] | | | | | [address] | [address] | | | | | Loop Physician's | [place], [place] | | | | | [place], [facility] floor | [address] | | | | | [place], [place] | [phone] | | | | | [address] | | | | | | [phone] | | | +--------+ + + + [...]
--- OUTSIDE RECORDS SUMMARY | ~2020-08-01 | XMS | Encounter Summary ---
Demographics + + + | Address | [address] | | | [place] [address] | + + + | Home Phone | | + + + | Preferred Language | Unknown | + + + | Marital Status | | + + + | Religion Affiliation | 1077 | + + + | Race | White | + + + | Ethnic Group | Not or | + + + Author + + + | Author | [facility] | | | and [place] | + + + | Organization | [facility] | | | [...] Providers + +------+ + | Care Operations Intern Name | Role | Phone | + +------+ + PCP | Unavailable | + +------+ + Encounter Details +--------+ + + + + | Date | Type | Department | Care Team | Description | +--------+ + + + + | 09/17/ | Hospital | [facility] | Zay Francis, | | | 1996 - | Encounter | [facility] | [address] | | | | | CARDIAC TELEMETRY | [place] [address] [place] | | | 09/21/ | | [address] | [address] | | | 1998 | | [place] | [phone] | | | | | [address] | | | | | | [phone] | | | +--------+ + + + [...]
--- OUTSIDE RECORDS SUMMARY | ~2020-08-01 | XMS | Encounter Summary ---
Demographics + + + | Address | [address] | | | [place] [address] | + + + | Home Phone [...] Team Providers + +------+ + | Care Battery Loader Name | Role | Phone | [...] | | | [address] | [facility] | | | | | Loop Physician's | [place], [place] | | | | | [place], [address] [place] [address] | [address] | | | | | [place], [place] | [phone] | | | | | [address] | | | | | | [phone] | | | +--------+ + + + [...] received orders. Confirmed with RN KARLA at [facility] alth that they will pull [...]
--- OUTSIDE RECORDS SUMMARY | ~2020-08-01 | XMS | Encounter Summary ---
Demographics + + + | Address | [address] | | | [place] [address] | + + + | Home Phone [...] Team Providers + +------+ + | Care Court Bailiff Name | Role | Phone | + +------+ + PCP | Unavailable | + +------+ + Encounter Details +--------+ + + + + | Date | Type | Department | Care Team | Description | +--------+ + + + + | 09/29/ | Hospital | [facility] | Zeb Giang | | | 2000 - | Encounter | [facility] MED CTR | [address] [place] | | | | | CARDIAC TELEMETRY | [address] [place], [place] | | | 10/04/ | | [address] | [address] | | | 2000 | | [place] | | | | | | [address] | | | | | | [phone] | | | +--------+ + + + [...]
--- OUTSIDE RECORDS SUMMARY | ~2020-08-01 | XMS | Encounter Summary ---
Demographics + + + | Address | [address] | | | [place] [address] | + + + | Home Phone [...] Team Providers + +------+ + | Care Developer Prover Upholstering Name | Role | Phone | + [...] | | 2019 | | [address] | [address] | | | | | [place] | [address] | | | | | [address] | [address] | | | | | [phone] | | | +--------+ + + + [...] - 1.030 | EXTERNAL | | | [place], | | | LAB | | | [...]
--- OUTSIDE RECORDS SUMMARY | ~2020-08-01 | XMS | Encounter Summary ---
Demographics + + + | Address | [address] | | | [place] [address] | + + + | Home Phone [...] Team Providers + +------+ + | Care Probation And Patrol Agent Name | Role | Phone | [...]
--- OUTSIDE RECORDS SUMMARY | ~2020-08-01 | XMS | Encounter Summary ---
Demographics + + + | Address | [address] | | | [place] [address] | + + + | Home Phone [...] Team Providers + +------+ + | Care Duct Layer Supervisor Name | Role | Phone | [...] | | | | and | | [address] | | | | | inflammatory | | [address] | | | | | reaction | | [address] [place], | | | | | due to | | [place] | | | | | internal | | [address] | | | | | right knee | | Phone: | | | | | prosthesis, | | [phone] | | | | | initial | | Fax: | | | | | encounter | | [phone] | +--------+--------+ + + + + Encounter [...] | | | | Loop Physician's | [facility] [place] | subsequent encounter | | | | [place], 3rd floor | [address] | (Primary Dx); Long | | | | [place], [place] | [phone] | term (current) use | | | | [address] | | of antibiotics | | | | [phone] | | | +--------+---------+ + + + [...] Take by mouth., Disp: , Rfl: antiox. no.90-[id number]-[id number]-[id number]-jli (I-CAPS) 280-10-2 mg oral capsule, Take 1 [...] locally Abril Shields MD Infectious Diseases [phone] documented in this encounter Plan of Treatment Not on filedocumented as of this encounter Visit Diagnoses + + | Diagnosis | + + | Infection associated with internal right knee prosthesis, subsequent encounter - | | Primary | + + | intermodal customer service (current) use of antibiotics | + + documented in this encounter
--- OUTSIDE RECORDS SUMMARY | ~2020-08-01 | XMS | Encounter Summary ---
Demographics + + + | Address | [address] | | | [place] [address] | + + + | Home Phone [...] Providers + +------+ + | Care Claims Customer Service Representative Name | Role | Phone [...]
--- OUTSIDE RECORDS SUMMARY | ~2020-08-01 | XMS | Encounter Summary ---
Demographics + + + | Address | [address] | | | [place] [address] | + + + | Home Phone [...] Team Providers + +------+ + | Care Nutritionalist Name | Role | Phone | + +------+ + | Gilberto Estrada MD | PCP | | + +------+ + Encounter Details +--------+ + + + + | Date | Type | Department | Care Team | Description | +--------+ + + + + | 08/18/ | Hospital | Radiology/Imaging | [place], | | | 2017 | Encounter | at [facility] | [address] | | | | | [address] | [place], [place] | | | | | [facility] [address] | [address] | | | | | [place], [place] | [phone] | | | | | [address] | | | | | | [phone] | | | +--------+ + + + [...] | | 0 | | | | no.01-[id number]-gyq-tid | mouth once daily. | | | [...]
--- OUTSIDE RECORDS SUMMARY | ~2020-08-01 | XMS | Encounter Summary ---
Demographics + + + | Address | [address] | | | [place] [address] | + + + | Home Phone [...] Providers + +------+ + | Care Clinical Asst Name | Role | Phone | + +------+ + PCP | Unavailable | + +------+ + Encounter Details +--------+ + + + + | Date | Type | Department | Care Team | Description | +--------+ + + + + | 09/12/ | [facility] | Olaf Nicole | | | [facility] - | Encounter | [facility] | MD [address] | | | | | CARDIAC TELEMETRY | [address] | | | 09/14/ | | [address] | [place] [address] | | | 1999 | | [place] | [phone] | | | | | [address] | | | | | | [phone] | | | +--------+ + + + [...]
--- OUTSIDE RECORDS SUMMARY | ~2020-08-01 | XMS | Encounter Summary ---
Demographics + + + | Address | [address] | | | [place] [address] | + + + | Home Phone [...] Team Providers + +------+ + | Care Transmission Rebuilder Name | Role | Phone | [...] floor | | | | | | [place], [place] | | | | | | [address] | | | +--------+ + + + [...]
--- OUTSIDE RECORDS SUMMARY | ~2020-08-01 | XMS | Encounter Summary ---
Demographics + + + | Address | [address] | | | [place] [address] | + + + | Home Phone [...] Team Providers + +------+ + | Care Sack Lifter Name | Role | Phone | + [...] | | | | | | | [facility] | | | | | | | [address] | | | | | | | Phone: | | | | | | | [phone] | | | | | | | Fax: | | | | | | | [phone] | | + + + + + [...] | | | | | involving | [facility] | [address] | | | | | enterprise | [id number] | [place] | | | | | coronary | Phone: | [phone] Phone: | | | | | artery of | [phone] | [phone] | | | | | enterprise heart | Fax: | Fax: | | | | | without | [phone] | [phone] | | | | | angina | [...] + + | 07/18/ | Hospital | [facility] | Stephane, | Acute on chronic | | 2019 - | Encounter | [facility] | MD Corinne | systolic heart | | | | CARE FLOOR [address] | [address] | failure (HCC) | | 07/25/ | | [address] | [place] [address] | (Primary Dx); | | 2020 | | [place], [place] | [phone] | Coronary artery | | | | [address] | | disease involving | | | | [phone] | Gordon Bragg MD | enterprise coronary | | | | | [address] | artery of enterprise | | | | | [place] [address] | heart without angina | | | | | [phone] | pectoris; Cardiac | | | | | | pacemaker in situ; | | | | | Wyatt Yang MD | Chronic renal | | | | | [address] | insufficiency, stage | | | | | [place] [address] | 4 (severe) (HCC); | | | | | [phone] | COVID-19; Heart | | | | [...] | | | | | | tachycardia) ([facility]); | | | | | | Nonsustained | | | | | | ventricular | | | | | | tachycardia (HCC); | | | | | | Coronary [...] | | | | | | failure ([facility]); SSS | | | | | | (sick sinus | | | | | | syndrome) ([facility]); | | | | | | COVID-19 [...] Yang MD - 07/25/2020 9:03 AM PDT [facility] Service: Hospitalist Discharge Summary Date of Admission: [...] post dual-chamber pacemaker/ICD who pres ented to [facility] with complaints of not feeling well was [...] hours. No results for input(s): PHART, PO2ART, BPA0WUF, U9STVGAH, BEART in the last 168 hours. Recent Labs Lab 07/25/2052707/24/20 0607/23/20 0507/18/20 1737 INR 3.6 3.6 4.2 [...] Sebas Vickers MD [address] [place] [address] In 2 weeks [facility] [address] [place] [address] Call Referral sent on 07/25. Please call to set up services for Physical Therapy and Nursing care . Gilberto Estrada MD [address] [facility] [address] In 1 week Discharge Medications New [...] Ischemic cardiomyopathy,Sever e sigmoid diverticulosiswho presents to [facility] after an episode of fall.Patient was [...] was found in the [facility] he presented to the emergency roomon 07/16.He was initially found to be hypoglycem ic with a blood sugar of 40 hence he received D50. initially when patient was admitted to the hospital CK was elevated [id number].Hence kassy ent also received fluid resuscitation for rhabdomyolysis and was kept on maintenance fluid a t 125 cc/h. On 07/17,his CK worsened [id number].His troponin was only 0.014.Also he c ontinued to have soft blood pressures.Hence he was transferred to ICU in [facility] . On 07/18,he was also started on Rlcrwrzi8qkhfyl hypertension.Seems patient was al so continued on [...] 50% and appears normal Other pertinent labson 07/17,[id number],INR 3.3,creatinine 1.89,hemoglobin 13.5,W BC 11.7,ESR 78. On [...] to 30%, new pressor requirement[facility]. On [facility] [...] vomiting or dizziness or lightheadedness. Scheduled Medications: sqzboakxnrGCJRK-ikpznd-vndvkpcul mouthwash (ADS admixture) 15 mL Swish & [...] Ischemic cardiomyopathy,Sever e sigmoid diverticulosiswho presents to [facility] after an episode of fall. Principal [...] Communication thread: I called Beth platt # [phone] on July 20 at 1208 and answered [...] this chart may have been created with [employer] voice recognition software. Occasi onal wrong-word or sound-alike substitutions may have occurred due to the inherent olson itations of voice recognition software. Please read the chart carefully and recognize, using context, where these substitutions have occurred. ehr, Sebas Lopez MD - 0 07/24/2020 8:02 AM PDT [facility] Service: Cardiology Progress Note Date of Admission: 07/18/2020 BRIEF CLINICAL HISTORY: 80 y.o. male with prior history of coronary artery disease/ND wit h prior stenting/2 vessel CABG (remote [...] and recent COVID19 diagnosis (with pneumonia per [facility] dicine office note 07/11/20). He presented to [facility] 07/16/20 after fall vs sync ope [...] and COVID19+, although it appears that h elise contracted this illness last month after attending a . He was ultimately transferre d to ICU for persistent hypotension requiring IV pressors. His echocardiogram demonstrated a drop in LV systolic function to 25-30% with wall motion abnormalities. He was then transfer red to [facility] for a higher level of care. Telemetry strips from [facility] showed frequent PVC s and nonsustained VT. Upon presentation to [facility], his troponin was elevated, 1.265 (now trending [...] Past Medical History: Diagnosis Date Ankylosing spondylitis ([facility]) Arthritis Beta Blockers - Daily Use 07/22/2017 CAD (coronary artery disease) severe multivessel CAD Cardiac pacemaker in situ - MEDTRONIC 10/24/2016 Medtronic - Placed Sep 2016 for sick sinus syndrome Chronic kidney disease Chronic renal insufficiency, stage 4 (severe) ([facility]) 02/10/2019 Chronic sinusitis Coronary artery disease involving autologous artery coronary bypass graft, angina prese nce unspecified 10/31/2015 SVG to the RCA occluded Deep vein thrombosis (DVT) (HCC) Diabetes mellitus type II Diverticulosis Dysphagia GERD (gastroesophageal reflux disease) Hyperlipidemia Hypertension Ischemic cardiomyopathy Joint pain senior care current use of anticoagulant - COUMADIN 07/22/2017 [...] - TOTAL; Surgeon: Drew Hurst MD; Location: [facility]; Service : Orthopedics; Laterality: Right; alisha component.br OTHER SURGICAL HISTORY CATARACT EXTRACTION OTHER SURGICAL HISTORY PHRENIC NERVE PACEMAKER IMPLANTATION PACEMAKER INSERTION Medtronic SINUS SURGERY TONSILLECTOMY AND ADENOIDECTOMY UPPER GASTROINTESTINAL ENDOSCOPY N/A 07/31/2017 Procedure: EGD with Dilation; Surgeon: Willow Colin MD; Location: [facility] MEDICAL PROCEDUR E UNIT UPPER GASTROINTESTINAL ENDOSCOPY N/A 02/10/2019 Procedure: EGD WITH DILITATION; Surgeon: Willow Colin MD; Location: [facility] MEDICAL PROCED URE UNIT VASECTOMY Allergies [...] mg by mouth Daily . Scheduled Medications atevedhrceGCQZP-osgdbg-nknpxoppp mouthwash (ADS admixture) 15 mL Swish & [...] triplets I/O yesterday: 461 / 700, net +3 since admission GENERAL: Chronically ill-appearing elderly male, [...] normal, marked bilateral pretibial hyperpigmentati on with epzs-hrfiz-zaqv desquamation. NEUROLOGIC: Awake, alert and oriented x [...] 2.6 3.0 Free T4 1.3 ECHO (07/18/20 ([facility]): Mildly dilated left ventricular cavity. Left [...] pectoris COVID-19 Cardiac pacemaker in situ - NebuAd ASSESSMENT & PLAN 1. Rhabdomyolysis, s/p fall [...] cardiac catheterization October 2015 showed both the enterprise RCA and its vein graft were occluded. There were jsmi-to-eluiz collaterals to the RPDA and RPLA (occlusi [...] to RV scarring fr om his inferior ND. Wall motion abnormalities in the RCA territory [...] in 2 weeks. Code Status: Full Code alik, Gordon Sheikh MD - 0 07/23/2020 9:38 AM PDT Service: Hospitalist Progress Note Pt: Duane Mas AGE/SEX: 80 y.o. male ROOM: [address] [place] [address] : 1940 PCP: Erin Forrester MD ADMIT DATE: 07/18/2020 TODAY'S DATE: 07/23/2020 Hospital Day/Hospital Course: LOS: 5 days Per ICU 80 y.o.malewith significant past medical history of DM2, CKD 4, CAD, 2V CABG 2000, SV t o LAD and SV to PDA, SSS s/p medtronic dual chamber PPM/ICD, Ischemic cardiomyopathy,Sever e sigmoid diverticulosiswho presents to [facility] after an episode of fall.Patient was [...] was [facility] he presented to the emergency roomon 07/16.He was initially found to be hypoglycem ic with a blood sugar of 40 hence he received D50. initially when patient was admitted to the hospital CK was elevated [id number].Hence kassy ent also received fluid resuscitation for rhabdomyolysis and was kept on maintenance fluid a t 125 cc/h. On 07/17,his CK worsened [id number].His troponin was only 0.014.Also he c ontinued to have soft blood pressures.Hence he was transferred to ICU in [facility] . On 07/18,he was also started on Kbdlekwk1tmebgb hypertension.Seems patient was al so continued on [...] 50% and appears normal Other pertinent labson 07/17,[id number],INR 3.3,creatinine 1.89,hemoglobin 13.5,W BC 11.7,ESR 78. On [...] to 30%, new pressor requirement,[facility] On [facility] to the [...] Continuous Infusions dextrose 10% PRN Medications acetaminophen, cltbrarpjgSLTDG-vbjjsn-bimojwlyn mouthwash (ADS admixture), bisacodyl, Hypog lycemia Management [...] Not suicida l LABS: Recent Labs Lab 07/23/2052807/22/2070507/21/2063907/20/20 0553 WBC 8.06 7.24 7.67 9.63 HGB [...] Ischemic cardiomyopathy,Sever e sigmoid diverticulosiswho presents to [facility] after an episode of fall. Principal [...] Communication thread: I called Beth platt # [phone] on July 20 at 1208 and answered [...] this chart may have been created with [employer] voice recognition software. Occasi onal wrong-word or sound-alike substitutions may have occurred due to the inherent olson itations of voice recognition software. Please read the chart carefully and recognize, using context, where these substitutions have occurred. Gordon Valdez MD - 10:39 AM PDT Service: Hospitalist Progress Note Pt: Duane Mas AGE/SEX: 80 y.o. male ROOM: [address] [place] [address] : 1940 PCP: Erin Forrester MD ADMIT DATE: 07/18/2020 TODAY'S DATE: 07/22/2020 Hospital Day/Hospital Course: LOS: 4 days Per ICU 80 y.o.malewith significant past medical history of DM2, CKD 4, CAD, 2V CABG 2000, SV t o LAD and SV to PDA, SSS s/p medtronic dual chamber PPM/ICD, Ischemic cardiomyopathy,Sever e sigmoid diverticulosiswho presents to [facility] after an episode of fall.Patient was [...] was [facility] he presented to the emergency roomon 07/16.He was initially found to be hypoglycem ic with a blood sugar of 40 hence he received D50. initially when patient was admitted to the hospital CK was elevated [id number].Hence kassy ent also received fluid resuscitation for rhabdomyolysis and was kept on maintenance fluid a t 125 cc/h. On 07/17,his CK worsened [id number].His troponin was only 0.014.Also he c ontinued to have soft blood pressures.Hence he was transferred to ICU in [facility] . On 07/18,he was also started on Seapoejv9drqgvr hypertension.Seems patient was al so continued on [...] 50% and appears normal Other pertinent labson 07/17,[id number],INR 3.3,creatinine 1.89,hemoglobin 13.5,W BC 11.7,ESR 78. On [...] to 30%, new pressor requirement[facility]. On [facility] to [facility] [...] 75 mL/hr at 07/21/202120 PRN Medications acetaminophen, xcoxqdcgjlGSXTH-owvlpf-xuhqdqzas mouthwash (ADS admixture), bisacodyl, Hypog lycemia Management [...] Ischemic cardiomyopathy,Sever e sigmoid diverticulosiswho presents to [facility] after an episode of fall. Principal [...] Communication thread: I called Beth platt # [phone] on July 20 at 1208 and answered [...] this chart may have been created with [employer] voice recognition software. Occasi onal wrong-word or sound-alike substitutions may have occurred due to the inherent olson itations of voice recognition software. Please read the chart carefully and recognize, using context, where these substitutions have occurred. Alis Moura RN - 07/21/2020 2:46 PM PDT [facility] Service: Wound Care Consult Note Hospital Day: [...] situ - MEDTRONIC Class I, BMI 30-34.9 senior care current use of anticoagulant - COUMADIN Beta Blockers - Daily Use Diabetes mellitus, type II - ORAL Control Ihchh-la-Nedagb lying flat DAIJA II Inhibitors - Daily [...] (primary) hypertension Heart disease Pacemaker-dependent due to enterprise cardiac rhythm insufficient to support life Venous [...] cardiogenic shock, possible septic shock (transfer from [facility]) INDICATION: DVT OTHER ANTICOAGULATION: none identified DRUG INTERACTIONS: no significant DDI (cephalexin CERTIFIED NURSING ASSISTANT) PATIENT DIET: carb consistent Bleed risk: moderate, recent fall CERTIFIED NURSING ASSISTANT regimen: 2.5 mg daily - confirmed with [...] and modify therapy as indicated. Brooks Mccarthy, Drug Room Clerk 2:34 PM PDT 07/21/2020 Claribel Abdi, REUBEN - 07/21/2020 2:22 PM PDTFormatting of this note might be different from wojciech hernandez. NUTRITION NOTE Summary Assessment for pressure injury and possible dysphagia. Pt is 80 yo M admitted for shock, +C OVID-19. BORING [employer]PER[employer] following, pt scheduled for MBS eval today. [...] displayed. Estimated Energy Needs Energy Calorie Requirements: 5944-6350 kcal(25-30 kcal/kg admit 77) Estimated Protein Needs Range Gm Protein (gm): 92-116 g(1.2-1.5 g/kg admit 77) Nutrition Diagnosis Inadequate oral intake related to decreased ability to consume sufficient energy as evidenc ed by reported poor intake/appetite Recommendations Consistent CHO diet with consistencies per B[employer]ING [employer]PERATOR [employer] - soft & bite sized, mildly thick [...] Ischemic cardiomyopathy,Sever e sigmoid diverticulosiswho presents to [facility] after an episode of fall.Patient was [...] [facility] room[facility].He was initially found to be hypoglycem ic with a blood sugar of 40 hence he received D50. initially when patient was admitted to the hospital CK was elevated [id number].Hence kassy ent also received fluid resuscitation for rhabdomyolysis and was kept on maintenance fluid a t 125 cc/h. On 07/17,his CK worsened [id number].His troponin was only 0.014.Also he c ontinued to have soft blood pressures.Hence he was transferred to ICU in [facility] . On 07/18,he was also started on Hmxwacty9dmefch hypertension.Seems patient was al so continued on [...] 50% and appears normal Other pertinent labson 07/17,[id number],INR 3.3,creatinine 1.89,hemoglobin 13.5,W BC 11.7,ESR 78. On [...] to 30%, new pressor requirement,[facility]. On [facility] to [facility] [...] mL/hr at 07/21/20 0809 PRN Medications acetaminophen, slheapravuEIEWH-zfisvq-izbaczruw mouthwash (ADS admixture), bisacodyl, Hypog lycemia Management [...] Lab 07/21/20 0640 07/20/20 0553 07/19/20 0423 WBC 7.67 9.63 9.62 HGB 12.0* 12.4* [...] Ischemic cardiomyopathy,Sever e sigmoid diverticulosiswho presents to [facility] after an episode of fall. Principal [...] Communication thread: I called Beth platt # [phone] on July 20 at 1208 and answered all the question I called her on July 21 at 1140 and no answer Gordon Bragg MD, FACP 07/21/2020 11:00 AM PDT Portions of this chart may have been copied from previous notes for continuity of care purp ose Portions of this chart may have been created with [employer] voice recognition software. Occasi onal wrong-word or sound-alike substitutions may have occurred due to the inherent olson itations of voice recognition software. Please read the chart carefully and recognize, using context, where these substitutions have occurred. e, Sebas Lopez MD - 020 7:56 AM PDT [facility] Service: Cardiology Progress Note Date of Admission: 07/18/2020 BRIEF CLINICAL HISTORY: 80 y.o. male with prior history of coronary artery disease/ND wit h prior stenting/2 vessel CABG (remote [...] and recent COVID19 diagnosis (with pneumonia per [facility] leodan office note 07/11/20). He presented to [facility] 07/16/20 after fall vs sync ope [...] abnormalities. He was then transfer red to [facility] for a higher level of care. Telemetry strips from [place] showed frequent PVC s and nonsustained VT. Upon presentation to [facility], his troponin was elevated, 1.265 (now trending [...] Past Medical History: Diagnosis Date Ankylosing spondylitis ([facility]) Arthritis Beta Blockers - Daily Use 07/22/2017 CAD (coronary artery disease) severe multivessel CAD Cardiac pacemaker in situ - MEDTRONIC 10/24/2016 Medtronic - Placed Sep 2016 for sick sinus syndrome Chronic kidney disease Chronic renal insufficiency, stage 4 (severe) ([facility]) 02/10/2019 Chronic sinusitis Coronary artery disease involving autologous artery coronary bypass graft, angina prese nce unspecified 10/31/2015 SVG to the RCA occluded Deep vein thrombosis (DVT) (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) Old myocardial infarction SEUN (obstructive sleep apnea) 07/22/2017 UNTREATED SEUN. STOP BANG Score 6 (High risk SEUN), does not want a sleep study, would not a ccept CPAP if prescribed. Peripheral neuropathy S/P CABG x 2 SVG to the LAD was patent on cardiac cath 2015 Sick sinus syndrome ([facility]) s/p pacemaker Systolic heart failure ([facility]) Unspecified visual disturbance Past Surgical History: Procedure Laterality Date ABDOMEN SURGERY APPENDECTOMY CARDIAC CATHERIZATION COLONOSCOPY 2014 COLONOSCOPY CORONARY ANGIOPLASTY WITH STENT PLACEMENT CORONARY ARTERY BYPASS GRAFT CORONARY ARTERY BYPASS GRAFT EYE SURGERY KNEE SURGERY Right 09/07/2013 Procedure: KNEE - TOTAL; Surgeon: Drew Hurst MD; Location: [facility]; Service : Orthopedics; Laterality: Right; alisha component.br OTHER SURGICAL HISTORY CATARACT EXTRACTION OTHER SURGICAL HISTORY PHRENIC NERVE PACEMAKER IMPLANTATION PACEMAKER INSERTION Medtronic SINUS SURGERY TONSILLECTOMY AND ADENOIDECTOMY UPPER GASTROINTESTINAL ENDOSCOPY N/A 07/31/2017 Procedure: EGD with Dilation; Surgeon: Willow Colin MD; Location: [facility] MEDICAL PROCEDUR E UNIT UPPER GASTROINTESTINAL ENDOSCOPY N/A 02/10/2019 Procedure: EGD WITH DILITATION; Surgeon: Wilolw Colin MD; Location: [facility] MEDICAL PROCED URE UNIT VASECTOMY Allergies [...] mL/hr at 07/20/20 1426 PRN Medications acetaminophen, qusykznnsoAJZVH-rrgvev-sxgqldrke mouthwash (ADS admixture), bisacodyl, Hypog lycemia Management [...] normal, marked bilateral pretibial hyperpigmentati on with goir-lecka-kvbz desquamation. NEUROLOGIC: Awake, alert and oriented x [...] this interval not displayed. Recent Labs Lab 07/20/[id number]/20/[id number]/19/20160207/19/2007/18/20 1737 TROPONIN -- -- -- 0.815* 1.265* CK 1,558* 1,876* 2,359* 2,174* 2,937* CKMB -- -- -- 2.6 3.0 Free T4 1.3 ECHO (07/18/20 ([facility]): Mildly dilated left ventricular cavity. Left [...] pectoris COVID-19 Cardiac pacemaker in situ - NebuAd ASSESSMENT & PLAN 1. Rhabdomyolysis, s/p fall [...] cardiac catheterization October 2015 showed both the enterprise RCA and its vein graft were occluded. There were lcqo-pr-tfeei collaterals to the RPDA and RPLA (occlusi [...] to RV scarring fr om his inferior ND. Wall motion abnormalities in the RCA territory [...] Code Status: Full Code roctor, Amparo Faustin [facility] - 07/20/2020 3:33 PM PDT Pharmacy Warfarin Monitoring: Duane Mas male 80 y.o. admitted on 07/18 for cardiogenic shock, possible septic shock (transfer from [facility]) INDICATION: DVT OTHER ANTICOAGULATION: none identified DRUG INTERACTIONS: no significant DDI (cephalexin CERTIFIED NURSING ASSISTANT) PATIENT DIET: carb consistent Bleed risk: moderate, recent fall CERTIFIED NURSING ASSISTANT regimen: 2.5 mg daily - confirmed with patient , Beth, via pill bottle identificat ion and also confirmed with patient pharmacy ([facility]), and records from MD office Russell [...] target range of 2-3 Will continue with CERTIFIED NURSING ASSISTANT dose of 2.5 mg tonight as long [...] Ischemic cardiomyopathy,Sever e sigmoid diverticulosiswho presents to [facility] after an episode of fall.Patient was [...] admitted to the hospital CK was elevated [id number].Hence kassy ent also received fluid resuscitation for rhabdomyolysis and was kept on maintenance fluid a t 125 cc/h. On 07/17,his CK worsened [id number].His troponin was only 0.014.Also he c ontinued to have soft blood pressures.Hence he was transferred to ICU in [facility] . On 07/18,he was also started on Tjoalfnk4lvsxjk hypertension.Seems patient was al so continued on [...] 50% and appears normal Other pertinent labson 07/17,[id number],INR 3.3,creatinine 1.89,hemoglobin 13.5,W BC 11.7,ESR 78. On [...] to 30%, new pressor requirement[facility]. On [facility] to the ICU patient is awake alert and oriented x3.He is comfortably resting in bed.Systolic blood pressure 160 heart rate within 70.His main complaint was left shoulder pain." ICU Timeline: 9/22- Admitted to ICU, on pressors. Started on [...] Continuous Infusions dextrose 10% PRN Medications acetaminophen, pqwofmiwgjOBCNP-mszsbq-gfyxkkyph mouthwash (ADS admixture), bisacodyl, Hypog lycemia Management [...] Ischemic cardiomyopathy,Sever e sigmoid diverticulosiswho presents to [facility] after an episode of fall. Principal [...] 3 days Communication thread: I called Beth [employer] # [phone] on July 20 at 1208 and answered all the question Gordon Bragg MD, FACP 07/20/2020 9:59 AM PDT Portions of this chart may have been copied from previous notes for continuity of care purp ose Portions of this chart may have been created with [employer] voice recognition software. Occasi onal wrong-word or sound-alike substitutions may have occurred due to the inherent olson itations of voice recognition software. Please read the chart carefully and recognize, using context, where these substitutions have occurred. e, Sebas Lopez MD - 07/20 8:57 AM PDT [facility] Service: Cardiology Progress Note Date of Admission: 07/18/2020 BRIEF CLINICAL HISTORY: 80 y.o. male with prior history of coronary artery disease/ND wit h prior stenting/2 vessel CABG (remote [...] and recent COVID19 diagnosis (with pneumonia per [facility] dicine office note 07/11/20). He presented to [facility] 07/16/20 after fall vs sync ope [...] abnormalities. He was then transfer red to [facility] for a higher level of care. Telemetry strips from [place] showed frequent PVC s and nonsustained VT. Upon presentation to [facility], his troponin was elevated, 1.265 (now trending [...] Past Medical History: Diagnosis Date Ankylosing spondylitis ([facility] [facility]) Arthritis Beta Blockers - Daily Use 07/22/2017 CAD (coronary artery disease) severe multivessel CAD Cardiac pacemaker in situ - MEDTRONIC 10/24/2016 Medtronic - Placed Sep 2016 for sick sinus syndrome Chronic kidney disease Chronic renal insufficiency, stage 4 (severe) ([facility]) 02/10/2019 Chronic sinusitis Coronary artery disease involving autologous artery coronary bypass graft, angina prese nce unspecified 10/31/2015 SVG to the RCA occluded Deep vein thrombosis (DVT) (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) Old myocardial infarction SEUN (obstructive sleep apnea) 07/22/2017 UNTREATED SEUN. STOP BANG Score 6 (High risk SEUN), does not want a sleep study, would not a ccept CPAP if prescribed. Peripheral neuropathy S/P CABG x 2 SVG to the LAD was patent on cardiac cath 2015 Sick sinus syndrome ([facility]) s/p pacemaker Systolic heart failure ([facility]) Unspecified visual disturbance Past Surgical History: Procedure Laterality Date ABDOMEN SURGERY APPENDECTOMY CARDIAC CATHERIZATION COLONOSCOPY 2014 COLONOSCOPY CORONARY ANGIOPLASTY WITH STENT PLACEMENT CORONARY ARTERY BYPASS GRAFT CORONARY ARTERY BYPASS GRAFT EYE SURGERY KNEE SURGERY Right 09/07/2013 Procedure: KNEE - TOTAL; Surgeon: Drew Hurst MD; Location: [facility] MA[facility] OR; Service : Orthopedics; Laterality: Right; alisha component.br OTHER SURGICAL HISTORY CATARACT EXTRACTION OTHER SURGICAL HISTORY PHRENIC NERVE PACEMAKER IMPLANTATION PACEMAKER INSERTION Medtronic SINUS SURGERY TONSILLECTOMY AND ADENOIDECTOMY UPPER GASTROINTESTINAL ENDOSCOPY N/A 07/31/2017 Procedure: EGD with Dilation; Surgeon: Willow Colin MD; Location: [facility] MEDICAL PROCEDUR E UNIT UPPER GASTROINTESTINAL ENDOSCOPY N/A 02/10/2019 Procedure: EGD WITH DILITATION; Surgeon: Willow Colin MD; Location: [facility] MEDICAL PROCED URE UNIT VASECTOMY Allergies [...] Continuous Infusions dextrose 10% PRN Medications acetaminophen, pinxsyvdihMGDDL-pifgyl-bcscxuvnv mouthwash (ADS admixture), bisacodyl, Hypog lycemia Management [...] normal, marked bilateral pretibial hyperpigmentati on with ttqu-agxmm-bymc desquamation. NEUROLOGIC: Awake, alert and oriented x [...] 2.7 2.6 -- 2.6 Echocardiogram (07/18/20 - [facility]): Mildly dilated left ventricular cavity. Left [...] pectoris COVID-19 Cardiac pacemaker in situ - RaykuTRONIC ASSESSMENT & PLAN 1. Rhabdomyolysis, s/p fall [...] cardiac catheterization October 2015 showed both the enterprise RCA and its vein graft were occluded. There were [id number] collaterals to the RPDA and RPLA (occlusi [...] due to RV scarring from his inferior ND. Wall motion abnormalities in the RCA territory [...] Report received over the phone pawan lopez CHILD DAY CARE TEACHER. Report given to FLY Middleton who will resume care. JAKOB LYNNE RN Jakob Mazariegos P harmD - 07/19/2020 5:41 PM PDT Pharmacy Warfarin Monitoring: Duane Mas male 80 y.o. admitted on 07/18 for cardiogenic shock, possible septic shock (transfer from [facility]) INDICATION: DVT OTHER ANTICOAGULATION: none identified DRUG INTERACTIONS: asa, cephalexin (precinct captain meds) PATIENT DIET: carb consistent Bleed risk: moderate, recent fall CERTIFIED NURSING ASSISTANT regimen: 2.5 mg daily - confirmed with patient , Beth, via pill bottle identificat ion and also confirmed with patient pharmacy ([facility]), and records from MD office [facility] 07/19/20 1603 07/19/20 0423 [...] to patient transfer . Will continue with CERTIFIED NURSING ASSISTANT dose of 2.5 mg tonight since INR is in range, will be cautious and w atch for potential increase in INR with acute illness Plan: Warfarin 2.5 mg po today INR in am Pharmacy will continue to follow and modify therapy as indicated. Jakob Baum RPH 5:33 PM PDT 07/19/20 roctorAmparo RPH - 07/19/2020 3:15 PM PDT Pharmacy Warfarin Monitoring: Duane Mas male 80 y.o. admitted on 07/18 for cardiogenic shock, possible septic shock (transfer from [facility]) INDICATION: DVT OTHER ANTICOAGULATION: none identified DRUG INTERACTIONS: no significant DDI PATIENT DIET: carb consistent Bleed risk: moderate, recent fall CERTIFIED NURSING ASSISTANT regimen: 2.5 mg daily - confirmed with patient , Beth, via pill bottle identificat ion and also confirmed with patient pharmacy ([facility]), and records from MD office [facility] 07/19/20 0423 07/18/20 1737 HGB 12.2* 13.4 PLT 120* 146* INR -- 2.6 DATE 07/19 07/18 INR - 2.6, 2.6 Warfarin Dose 2.5 mg planned Unknown, dose held Assessment: The INR is Within the target range of 2-3 Patient likely did not receive dose on 07/18 per review of records prior to patient transfer . Will continue with CERTIFIED NURSING ASSISTANT dose of 2.5 mg tonight as long as INR is within range Plan: Warfarin 2.5 mg po today INR in am Pharmacy will continue to follow and modify therapy as indicated. Amparo Clark RPH 3:09 PM PDT 07/19/2020 asi Duque ARNP - 07/19/2020 9:20 AM PDTFormatting of this note might be different from the origin [facility] Service: Tram Operator Progress Note Duane Mas 80 y.o. Hospital [...] cardiomyopathy, Severe sigmoid diverticulosis who presents to [facility] after an episode of fall. Patient [...] Hence he was transferred to ICU in [facility]. On 07/18, he was also started on [...] new pressor requirement, patient was transferred to [facility] for further management. On arrival to the [...] other procedures. PADDY Redmond 07/19/2020 Dictation software, [employer], was used which may contain error with [...] a dose tonight. He was transferred from [facility] and likely received a dose. I [...] might be d ifferent from the original. [facility] Service: Tram Operator Admission History & Physical Duane Mas 80 [...] yopathy, Severe sigmoid diverticulosis who presents to [facility] after an episode of fall. Patient [...] Hence he was transferred to ICU in [facility]. On 07/18, he was also started on [...] new pressor requirement, patient was transferred to [facility] for further management. On arrival to the [...] - heart block - hypertension - past ND - pacemaker - PVD - sleep apnea - diverticular disease - GERD - obesity; due to excess calories; BMI (30-39) - arthritis REVIEW OF SYSTEMS At least 10 of the 14 systems are reviewed PAST MEDICAL HISTORY Past Medical History: Diagnosis Date DAIJA II Inhibitors - Daily Use 02/10/2019 Ankylosing spondylitis ([facility]) Arthritis Atrial fibrillation ([facility]) Beta Blockers - Daily Use 07/22/2017 Bradycardia CAD (coronary artery disease) Cardiac pacemaker in situ - MEDTRONIC 07/22/2017 Medtronic - Placed Sep 2016 for Symptomatic Bradycardia CHF (congestive heart failure) ([facility]) CHF (congestive heart failure) ([facility]) Chronic kidney disease Chronic renal insufficiency, stage 4 (severe) ([facility]) 02/10/2019 Chronic sinusitis Coronary artery disease Deep vein thrombosis (DVT) (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) Old myocardial infarction SEUN (obstructive sleep apnea) [...] - TOTAL; Surgeon: Drew Hurst MD; Location: [facility] OR; Service : Orthopedics; Laterality: Right; alisha component.br OTHER SURGICAL HISTORY CATARACT EXTRACTION OTHER SURGICAL HISTORY PHRENIC NERVE PACEMAKER IMPLANTATION PACEMAKER INSERTION Medtronic SINUS SURGERY TONSILLECTOMY AND ADENOIDECTOMY UPPER GASTROINTESTINAL ENDOSCOPY N/A 07/31/2017 Procedure: EGD with Dilation; Surgeon: Willow Colin MD; Location: [facility] MEDICAL PROCEDUR E UNIT UPPER GASTROINTESTINAL ENDOSCOPY N/A 02/10/2019 Procedure: EGD WITH DILITATION; Surgeon: Willow Colin MD; Location: [facility] MEDICAL PROCED URE UNIT VASECTOMY ALLERGIES [...] by mouth once daily. 05/21/17 Historical Pro vider, fish oil 1,000 mg capsule Take 1,200 [...] mg tablet glyburide 2.5 mg tabs Historical Provider, isosorbide mononitrate (IMDUR) 30 mg ER tablet [...] methylprednisolone 4 mg tabs Historical Provider , MD methylPREDNISolone (MEDROL) 4 mg tablet 01/11/19 Laurel [...] succinate er 25 mg tb24 H summer Marcus MD metoprolol succinate (TOPROL-XL) 25 mg 24 hr tablet 01/31/19 Laurel ProviderMD Multiple Vitamins-Minerals (ADULT MULTIVITAMIN WITH MINERALS/IRON) TABS Take 1 tablet by mo uth Daily. Historical ProviderMD Multiple Vitamins-Minerals (EYE VITAMINS) CAPS Take 1 tablet by mouth. Laurel Provid MD willy Multiple Vitamins-Minerals (ICAPS AREDS 2 PO) ICaps AREDS Historical ProviderMD Multiple Vitamins-Minerals (MULTIVITAMIN PO) Take by mouth. Historical MD Angeline niacin 500 mg tablet Take by mouth. Historical ProviderMD niacinamide 500 MG tablet Take 500 mg by mouth 2 (two) times daily with meals. Luana Marcus MD nystatin (MYCOSTATIN) 100,000 units/mL suspension nystatin 414894 unit/ml susp Luana Marcus MD nystatin (MYCOSTATIN) [...] Twice daily as needed. Aditya Marcus MD Goldsmith-3 Fatty Acids (FISH OIL PO) Take by mouth two times daily. Historical ProviderMD Goldsmith-3 Fatty Acids (FISH OIL) 1200 MG CAPS Take 1,200 mg by mouth 2 (two) times daily. Historical Provider, Goldsmith-3 Fatty Acids (OMEGA 3 PO) Goldsmith 3 Historical ProviderMD omeprazole (PRILOSEC) 20 mg [...] capsules every day by oral route. Historical ProviderMD potassium chloride 20 mEq CR tablet potassium [...] FIND cefazolin sodium 10 gm solr Historical ProviderMD UNABLE TO FIND 07/16/18 Historical ProviderMD warfarin [...] file Gets together: Not on file Attends druze service: Not on file Active member of [...] PDTAssociated Order(s): PROVIDER TO PROVID ER CONSULT [facility] Service: Cardiology Initial Consult Note Name of Proof Coin Collector: Mellissa Moy. ROCAEL Hutchins/Dr. Sree Vickers Primary Pattern Layout Worker: None current, last seen by Manuel Rothman 02/2017 (last seen by YE Gupta 12/2017) Reason for Consultation: Worsening cardiomyopathy Requesting Physician: Dr. Calderón, Tram Operator History Obtained From: Patient (poor historian), Chart Review CHIEF COMPLAINT: Fall vs syncope HISTORY OF PRESENT ILLNESS: Duane Mas is a 80 y.o. male with prior history of coronary artery disease/ND with prior stenting/2 vessel CABG (remote - [...] and recent COVID19 diagnosis (with pneumonia per [facility] office no te 07/11/20). He presented to [facility] 07/16/20 after fall vs syncope with [...] abnormalities. He was then riggs sferred to [facility] for higher level of care. Telemetry strips from [place] with frequent PVC s and nonsustained VT. Upon presentation to [facility], troponin 1.265 and CK 2937. Creatinine 1.95. [...] Past Medical History: Diagnosis Date Ankylosing spondylitis ([facility]) Arthritis Beta Blockers - Daily Use 07/22/2017 CAD (coronary artery disease) Cardiac pacemaker in situ - MEDTRONIC 10/24/2016 Medtronic - Placed Sep 2016 for sick sinus syndrome Chronic kidney disease Chronic renal insufficiency, stage 4 (severe) ([facility]) 02/10/2019 Chronic sinusitis Deep vein thrombosis (DVT) ([facility]) Diabetes mellitus type II Diverticulosis Dysphagia GERD (gastroesophageal reflux disease) Hyperlipidemia Hypertension Ischemic cardiomyopathy Joint pain senior care current use of anticoagulant - COUMADIN 07/22/2017 HX VTE Neuromuscular disorder ([facility]) Old myocardial infarction SEUN (obstructive sleep apnea) 07/22/2017 UNTREATED SEUN. STOP BANG Score 6 (High risk SEUN), does not want a sleep study, would not a ccept CPAP if prescribed. Peripheral neuropathy Sick sinus syndrome ([facility]) s/p pacemaker Systolic heart failure ([facility]) Unspecified visual disturbance Past Surgical History: Procedure Laterality Date ABDOMEN SURGERY APPENDECTOMY CARDIAC CATHERIZATION COLONOSCOPY 2014 COLONOSCOPY CORONARY ANGIOPLASTY WITH STENT PLACEMENT CORONARY ARTERY BYPASS GRAFT CORONARY ARTERY BYPASS GRAFT EYE SURGERY KNEE SURGERY Right 09/07/2013 Procedure: KNEE - TOTAL; Surgeon: Drew Hurst MD; Location: [facility]; Service : Orthopedics; Laterality: Right; alisha component.br OTHER SURGICAL HISTORY CATARACT EXTRACTION OTHER SURGICAL HISTORY PHRENIC NERVE PACEMAKER IMPLANTATION PACEMAKER INSERTION Medtronic SINUS SURGERY TONSILLECTOMY AND ADENOIDECTOMY UPPER GASTROINTESTINAL ENDOSCOPY N/A 07/31/2017 Procedure: EGD with Dilation; Surgeon: Willow Colin MD; Location: [facility] MEDICAL PROCEDUR E UNIT UPPER GASTROINTESTINAL ENDOSCOPY N/A 02/10/2019 Procedure: EGD WITH DILITATION; Surgeon: Willow Colin MD; Location: [facility] MEDICAL PROCED URE UNIT VASECTOMY MEDICATIONS [...] file Gets together: Not on file Attends druze service: Not on file Active member of [...] longevity 5-7.5 years. 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 0 AT/AF burden. Episode of 1:1 [...] No previous test for comparison. Cardiac catheterization: [facility] 10/31/2015 (reviewed today) CORONARY ANGIOGRAPHY The coronary [...] as below. No ECG on review of [place] records or here. Mina l obtain now. [...] from RV scarring from his former inferior ND as both the enterprise RCA and its graft are occluded. However, [...] purposes. If applicable, transfer resident [facility] a [facility] 3. Educate and reinforce infection [...] Arias RN Outcome: Ongoing, progressing lan of [place] - Trice Osullivan RN - 07/25/2020 10:49 [...] purposes. If applicable, transfer resident to a [facility] room 3. Educate and reinforce infection [...] needs: other (see comments)(pending d/c meds) Notes: SCRAP BREAKER spoke to pt who requested that CM contact pt's , Beth ([phone]). CM spoke to Beth who reports that pt does not need any DME at home and has all needed DME. Per , pt will be discharge on Coumadin. However, the Coumadin is not new and pt was on Co umadin prior to admission. Pt's confirmed that pt was on Coumadin prior to admission. Beth requested that pt receive home health services. SCRAP BREAKER faxed referral to [facility]. Per [facility], they have therapy staff available but no nursing staff at this time. Beth reports that Erin Forrester is not pt's PCP any longer. Pt sees Gilberto Estrada MD at [facility]. CM called [facility] to verify that pt is cu rrent. Pt is current. [facility] [address] [place] [address] P: F: [facility] [address] [place] [address] The following added to AVS - Call [facility] Referral sent on 07/25. Please call to set up services for Physical Therapy and Nursing care . [facility] [address] [place] [id number] Pt will discharge on Entresto. Per spouse, pt does have medication insurance. MD will send prescription to [facility] for the 30 day free trial. Pt will follow up with cardiology in 2 weeks. Spouse instructed to speak to prize coordinator about medication cost concerns. After e 30 [...] Living Environment Comment: Resides with spouse in [place]. They have 2 adult sons who have be en assisting as both pt and his spouse had Covid-19 in May. [place], still [facility] sts somewhat but mostly ran by adult [...] Assess/Train, Comment: socks LB Dressing, Level of [place]: maximal assist (25% patient effort) LB Dressing Assess/Train, Position: sitting LB Dressing Impairments: decreased flexibility, ROM decreased, strength decreased Bed Mobility Bed Mobility Comments: needed encouragement to participate Supine to Sit, Level of [place]: minimal assist (75% patient effort) Safety Issues: decreased use of legs for bridging/pushing, decreased use of arms for pushin g/pulling Impairments: strength decreased Transfers Transfers Comments: verbal cues Sit-Stand, Level of [place]: minimal assist (75% patient effort) Stand-Sit, Level of [place]: minimal assist (75% patient effort) Mld-Efgii-Eot, Assistive Device: gait belt Safety Issues: sequencing [...] LTG Status new at 07/24/2020 1410 LTG [place] Level modified independent at 07/24/2020 1410 LTG Adaptive Equipment none at 07/24/2020 1410 LB Dressing Goal Most Recent Value LTG Status new at 07/24/2020 1410 LTG [place] Level minimum assist (75% patient effort) at [...] of Care Goal: Optimal Comfort and Wellbeing 07/24/20201330 by Evgeny Yung RN Outcome: Ongoing, [...] purposes. If applicable, transfer resident to a [facility] room 3. Educate and reinforce infection [...] Ongoing, progressing lan of Vijaya Brown MS CCC-BORING MILL OPERATOR FOR METAL - 07/24/2020 12:00 PM PDTFormatting of this [...] water by cup with burping as well. BORING MILL OPERATOR FOR METAL to follow. Recommend staff to remind patient [...] changes this shift. Will continue to monitor. Gnosticism J. Sands, RN lan of Care - Mary carlson RN - 07/21/2020 9:57 PM PDTPatient resting [...] If applicable, transfer resident to a [facility] room 3. Educate and reinforce infection prevention [...] aucte changes, will continue to monitor. Michele he, FLY lan of [place] - Korey Acharya, PT - 07/21/2020 4:34 [...] Living Environment Comment: Resides with spouse in [place]. They have 2 adult sons who have [...] supine to/from sit Roll Left, Level of [place]: stand by assist Roll Right, Level of [place]: stand by assist Supine to Sit, Level of [place]: minimal assist (75% patient effort) Safety Issues: decreased use of legs for bridging/pushing, decreased use of arms for pushin g/pulling Impairments: strength decreased Transfers Additional Documentation: sit to/from stand Sit-Stand, Level of [place]: contact guard assist Stand-Sit, Level of [place]: contact guard assist Djr-[id number]-Dkv, Assistive Device: gait belt Safety Issues: sequencing ability decreased Impairments: strength decreased, impaired balance Gait Level of [place]: contact guard assist Assistive Device: gait belt, [...] Bed Mobility Goal Most Recent Value LTG [place] Level supervised at 07/21/2020 1520 All Transfers Goal Most Recent Value LTG [place] Level supervised at 07/21/2020 1520 Gait Goal Most Recent Value LTG [place] Level supervised at 07/21/2020 1520 LTG Assistive Device other (see comments) [least restrictive device] at 07/21/2020 1520 LTG Distance (feet) 150 at 07/21/2020 1520 lan of Care - [facility] Karissa membreno MA, CCC-BORING MILL OPERATOR FOR METAL - 07/21/2020 2:45 PM PDTFormatting of this [...] by mouth. at 07/21/2020 1130 lan of [place] - Nilesh Yung RN - 07/21/2020 6:53 [...] skin integrity. JAKOB LYNNE RN lan of [facility] - Hussein Lawrence RN - 07/20/2020 6:51 PM PDTPt arrived to floor and placed in bed. Pt AAOx4 calm and cooperative. Diane placed below patient. IV patent and infusing. Cares and report given to oncoming nurse. P M PDTPlan of [facility] - Vijaya Salinas MS [facility]-BORING MILL OPERATOR FOR METAL - 07/20/2020 4:20 PM PDTFormatting of th [...] Summary: Patient seen at bedside for initial BORING MILL OPERATOR FOR METAL evaluation due to RN report of coughing [...] continue to follow for discharge planning Notes: SCRAP BREAKER p/c with Pt spouse (Beth Mas [phone]) for discharge planning, states they resid e [...] thinners. Pt and Pt spouse reside in [place], [place], [place]. Pt may benefit from Home Health PT [...] accepted this patient to the hospitalist serv [facility]. Orders placed for transfer. PADDY Redmond 07/19/2020 4:55 PM PDT lan of Care - Cathi Damon RN - 07/19/2020 2:42 AM PDT Problem: Hemodynamic Instability (Sepsis/Septic Shock) Goal: Effective Tissue Perfusion Outcome: Ongoing, progressing Pt was transferred to [facility] due to hypotension and TTE showing 25-30%. [...] known or suspected case of COVID-19 to [facility] public health personnel 9. Avoid procedures that [...] +--------+ + + + + + + +--------+ + [...] involving | | | | | | enterprise coronary | | | | | | artery of enterprise | | | | | | heart [...] Testing | 65 - 99 mg/dL | [facility] | | | POC | performed at [facility];[address] | | [address]ORAT[address] | | | | [address];[place] | | | | | | [address] | | | | + + + + + + + + | Specimen | + + | | + + + + + + + | Performing | Address | City/State/Zipcode | Phone Number | | Organization | | | | + + + + + | [facility] | [address] | [place] [address] | [phone] | + + + + + CBC [...] | TCL, [address] | | | | | | [place] | | | | | | [address] | | | | + + + + + + + + | Specimen | + + | Blood | + + + + + + + | Performing | Address | City/State/Zipcode | Phone Number | | Organization | | | | + + + + + | [facility] | [address] | [place] [address] | [phone] | + + + + + Protime INR (07/25/2020 5:28 AM PDT) + + + + + + | Component | Value | Ref Range | Performed | Pathologist | | | | | At | Signature | + + + + + + | INR | 3.6Comment: REFERENCE | | [facility] | | | | RANGE:0.9 - 1.2 [...] | | | | | performed at [facility];[address] | | | | | | [address];[place] | | | | | | [address] | | | | + + + + + + + + | Specimen | + + | Blood | + + + + + + + | Performing | Address | City/State/Zipcode | Phone Number | | Organization | | | | + + + + + | [facility] | [address] | [place] [address] | [phone] | + + + + + Comprehensive [...] | | | | | performed at [facility], [address] | | | | | [address], | | | | | | [place] [address] | | | | + + + + + + + + | Specimen | + + | Blood | + + + + + + + | Performing | Address | City/State/Zipcode | Phone Number | | Organization | | | | + + + + + | [facility] | [address] | [place] [address] | [phone] | + + + + + POC Glucose (07/24/2020 8:29 PM PDT) + + + + + + | Component | Value | Ref Range | Performed | Pathologist | | | | | At | Signature | + + + + + + | Glucose, | 136 (H)Comment: Testing | 65 - 99 mg/dL | [facility] | | | POC | performed at [facility];[address] | | LAB[address]AT[address] | | | [address];[place], [place] | | | | | | [address] | | | | + + + + + + + + | Specimen | + + | | + + + + + + + | Performing | Address | City/State/Zipcode | Phone Number | | Organization | | | | + + + + + | [facility] | [address] | [place] [address] | [phone] | + + + + + POC [...] | | | POC | performed at [facility];[address] | | LABORATORY | | | | [address];[place], [place] | | | | | | [address] | | | | + + + + + + + + | Specimen | + + | | + + + + + + + | Performing | Address | City/State/Zipcode | Phone Number | | Organization | | | | + + + + + | [facility] | [address] | [place] [address] | [phone] | + + + + + POC Glucose (07/24/2020 12:18 PM PDT) + + + + + + | Component | Value | Ref Range | Performed | Pathologist | | | | | At | Signature | + + + + + + | Glucose, | 139 (H)Comment: Testing | 65 - 99 mg/dL | [facility] | | | POC | performed at [facility];[address] | | LABORATORY | | | | [address];[place], [place] | | | | | | [address] | | | | + + + + + + + + | Specimen | + + | | + + + + + + + | Performing | Address | City/State/Zipcode | Phone Number | | Organization | | | | + + + + + | [facility] | [address] | [place] [address] | [phone] | + + + + + POC Glucose (07/24/2020 7:31 AM PDT) + + + + + + | Component | Value | Ref Range | Performed | Pathologist | | | | | At | Signature | + + + + + + | Glucose, | 129 (H)Comment: Testing | 65 - 99 mg/dL | [facility] | | | POC | performed at [facility];888 | | LABORATORY | | | | [address];[place] | | | | | | [address] | | | | + + + + + + + + | Specimen | + + | | + + + + + + + | Performing | Address | City/State/Zipcode | Phone Number | | Organization | | | | + + + + + | [facility] | [address] | [place] [address] | [phone] | + + + + + CBC with Differential (07/24/2020 6:06 AM PDT) + + + + + + | Component | Value | Ref Range | Performed | Pathologist | | | | | At | Signature | + + + + + + | WBC | 9.21 | 3.80 - 11.00 | [facility] | | | | | K/uL | LABORATORY | | + + + + + + | Red Blood | 4.13 (L) | 4.20 - 5.70 | [facility] [...] at | | | | | | [facility], [address] [place] [address] | | | | | | [facility] [place] | | | | | | [address] | | | | + + + + + + + + | Specimen | + + | Blood | + + + + + + + | Performing | Address | City/State/Zipcode | Phone Number | | Organization | | | | + + + + + | [facility] | [address] | [place] [address] | [phone] | + + + + + Basic [...] 49 (L)Comment: GFR <60: | >60 | [facility] | | | GFR | CHRONIC [...] | | | | | performed at [facility], [address] | | | | | | [facility], | | | | | | [place] [address] | | | | + + + + + + + + | Specimen | + + | Blood | + + + + + + + | Performing | Address | City/State/Zipcode | Phone Number | | Organization | | | | + + + + + | [facility] | [address] | [place] [address] | [phone] | + + + + + Protime INR (07/24/2020 6:06 AM PDT) + + + + + + | Component | Value | Ref Range | Performed | Pathologist | | | | | At | Signature | + + + + + + | INR | 3.6Comment: REFERENCE | | [facility] | | | | RANGE:0.9 - 1.2 [...] | | | | | performed at [facility];[address] | | | | | | [facility];[place] | | | | | | [address] | | | | + + + + + + + + | Specimen | + + | Blood | + + + + + + + | Performing | Address | City/State/Zipcode | Phone Number | | Organization | | | | + + + + + | [facility] | [address] | [place] [address] | [phone] | + + + + + POC Glucose (07/23/2020 8:02 PM PDT) + + + + + + | Component | Value | Ref Range | Performed | Pathologist | | | | | At | Signature | + + + + + + | Glucose, | 139 (H)Comment: Testing | 65 - 99 mg/dL | [facility] | | | POC | performed at [facility];[address] | | LABORATORY | | | | [address];[place], [place] | | | | | | [address] | | | | + + + + + + + + | Specimen | + + | | + + + + + + + | Performing | Address | City/State/Zipcode | Phone Number | | Organization | | | | + + + + + | [facility] | [address] | [place] [address] | [phone] | + + + + + POC [...] | | | POC | performed at [facility];[address] | | LABORATORY | | | | [address] [facility];[place], [place] | | | | | | [address] | | | | + + + + + + + + | Specimen | + + | | + + + + + + + | Performing | Address | City/State/Zipcode | Phone Number | | Organization | | | | + + + + + | [facility] | [address] | [place] [address] | [phone] | + + + + + POC [...] | | | POC | performed at [facility];[address] | | LABORATORY | | | | [address];[place], [place] | | | | | | [address] | | | | + + + + + + + + | Specimen | + + | | + + + + + + + | Performing | Address | City/State/Zipcode | Phone Number | | Organization | | | | + + + + + | [facility] | [address] | [place] [address] | [phone] | + + + + + POC Glucose (07/23/2020 8:10 AM PDT) + + + + + + | Component | Value | Ref Range | Performed | Pathologist | | | | | At | Signature | + + + + + + | Glucose, | 129 (H)Comment: Testing | 65 - 99 mg/dL | [facility] | | | POC | performed at [facility];[address] | | LABORATORY | | | | [address];[place] | | | | | | [address] | | | | + + + + + + + + | Specimen | + + | | + + + + + + + | Performing | Address | City/State/Zipcode | Phone Number | | Organization | | | | + + + + + | [facility] | [address] | [place] [address] | [phone] | + + + + + Magnesium (07/23/2020 5:29 AM PDT) + + + + + + | Component | Value | Ref Range | Performed | Pathologist | | | | | At | Signature | + + + + + + | Magnesium | 2.0Comment: Testing | 1.7 - 2.4 mg/dL | [facility] | | | | performed at [facility];[address] | | LABORATORY | | | | [address];[place], [place] | | | | | | [address] | | | | + + + + + + + + | Specimen | + + | Blood | + + + + + + + | Performing | Address | City/State/Zipcode | Phone Number | | Organization | | | | + + + + + | [facility] | [address] | [place] [address] | [phone] | + + + + + CBC [...] at | | | | | | [facility];[address] [place] [address] | | | | | | Blvd;[place] [address] | | | | + + + + + + + + | Specimen | + + | Blood | + + + + + + + | Performing | Address | City/State/Zipcode | Phone Number | | Organization | | | | + + + + + | [facility] | [address] | [place] [address] | [phone] | + + + + + Basic [...] 53 (L)Comment: GFR <60: | >60 | [facility] | | | GFR | CHRONIC [...] | | | | | | MDRD [facility] traceable | | | | | | equation.Testing | | | | | | performed at [facility], [address] | | | | | | [facility], | | | | | | [place] [address] | | | | + + + + + + + + | Specimen | + + | Blood | + + + + + + + | Performing | Address | City/State/Zipcode | Phone Number | | Organization | | | | + + + + + | [facility] | [address] | [place] [address] | [phone] | + + + + + Protime INR (07/23/2020 5:29 AM PDT) + + + + + + | Component | Value | Ref Range | Performed | Pathologist | | | | | At | Signature | + + + + + + | INR | 4.2Comment: REFERENCE | | [facility] | | | [...] | | | | | performed at [facility];[address] | | | | | | [address];[place] | | | | | | [address] | | | | + + + + + + + + | Specimen | + + | Blood | + + + + + + + | Performing | Address | City/State/Zipcode | Phone Number | | Organization | | | | + + + + + | [facility] | [address] | [place] [address] | [phone] | + + + + + CK Total (07/23/2020 5:29 AM PDT) + + + + + + | Component | Value | Ref Range | Performed | Pathologist | | | | | At | Signature | + + + + + + | CK TOTAL | 792 (H)Comment: Testing | 55 - 400 U/L | [facility] | | | | performed at [facility];[address] | | LABORATORY | | | | [address];[place], [place] | | | | | | [address] | | | | + + + + + + + + | Specimen | + + | Blood | + + + + + + + | Performing | Address | City/State/Zipcode | Phone Number | | Organization | | | | + + + + + | [facility] | [address] | [place] [address] | [phone] | + + + + + POC [...] | | | POC | performed at [facility];[address] | | LABORATORY | | | | [address];[place], [place] | | | | | | [address] | | | | + + + + + + + + | Specimen | + + | | + + + + + + + | Performing | Address | City/State/Zipcode | Phone Number | | Organization | | | | + + + + + | [facility] | [address] | [place] [address] | [phone] | + + + + + POC Glucose (07/22/2020 4:56 PM PDT) + + + + + + | Component | Value | Ref Range | Performed | Pathologist | | | | | At | Signature | + + + + + + | Glucose, | 117 (H)Comment: Testing | 65 - 99 mg/dL | [facility] | | | POC | performed at [facility];[address] | | LABORATORY | | | | [address];[place] | | | | | | [address] | | | | + + + + + + + + | Specimen | + + | | + + + + + + + | Performing | Address | City/State/Zipcode | Phone Number | | Organization | | | | + + + + + | [facility] | [address] | [place] [address] | [phone] | + + + + + POC Glucose (07/22/2020 12:02 PM PDT) + + + + + + | Component | Value | Ref Range | Performed | Pathologist | | | | | At | Signature | + + + + + + | Glucose, | 133 (H)Comment: Testing | 65 - 99 mg/dL | [facility] | | | POC | performed at [facility];[address] | | LABORATORY | | | | [address];[place], [place] | | | | | | [address] | | | | + + + + + + + + | Specimen | + + | | + + + + + + + | Performing | Address | City/State/Zipcode | Phone Number | | Organization | | | | + + + + + | [facility] | [address] | [place] [address] | [phone] | + + + + + POC [...] | | | POC | performed at [facility];[address] | | LABORATORY | | | | [address];[place], [place] | | | | | | [address] | | | | + + + + + + + + | Specimen | + + | | + + + + + + + | Performing | Address | City/State/Zipcode | Phone Number | | Organization | | | | + + + + + | [facility] | [address] | [place] [address] | [phone] | + + + + + Magnesium (07/22/2020 7:06 AM PDT) + + + + + + | Component | Value | Ref Range | Performed | Pathologist | | | | | At | Signature | + + + + + + | Magnesium | 2.1Comment: Testing | 1.7 - 2.4 mg/dL | [facility] | | | | performed at [facility];[address] | | LABORATORY | | | | [address];[place] | | | | | | [address] | | | | + + + + + + + + | Specimen | + + | Blood | + + + + + + + | Performing | Address | City/State/Zipcode | Phone Number | | Organization | | | | + + + + + | [facility] | [address] | [place] [address] | [phone] | + + + + + CBC [...] | | | Absolute | performed at [facility];[address] | K/uL | LABORATORY | | | | [facility];[place], [place] | | | | | | [address] | | | | + + + + + + + + | Specimen | + + | Blood | + + + + + + + | Performing | Address | City/State/Zipcode | Phone Number | | Organization | | | | + + + + + | [facility] | [address] | [place] [address] | [phone] | + + + + + Basic [...] 7.2 (L) | 8.5 - 10.5 | [facility] | | | | | mg/dL | LABORATORY | | + + + + + + | Estimated | 51 (L)Comment: GFR <60: | >60 | [facility] | | | GFR | CHRONIC [...] | | | | | | MDRD [facility] traceable | | | | | | equation.Testing | | | | | | performed at [facility] | | | | | | [facility];[place], [place] | | | | | | [address] | | | | + + + + + + + + | Specimen | + + | Blood | + + + + + + + | Performing | Address | City/State/Zipcode | Phone Number | | Organization | | | | + + + + + | [facility] | [address] | [place] [address] | [phone] | + + + + + Protime INR (07/22/2020 7:06 AM PDT) + + + + + + | Component | Value | Ref Range | Performed | Pathologist | | | | | At | Signature | + + + + + + | INR | 3.9Comment: REFERENCE | | [facility] | | | | RANGE:0.9 - 1.2 [...] | | | | | performed at [facility];[address] | | | | | | [facility];[place], [place] | | | | | | [address] | | | | + + + + + + + + | Specimen | + + | Blood | + + + + + + + | Performing | Address | City/State/Zipcode | Phone Number | | Organization | | | | + + + + + | [facility] | [address] | [place] [address] | [phone] | + + + + + POC [...] | | | POC | performed at [facility];[address] | | LABORATORY | | | | [address];[place] | | | | | | [address] | | | | + + + + + + + + | Specimen | + + | | + + + + + + + | Performing | Address | City/State/Zipcode | Phone Number | | Organization | | | | + + + + + | [facility] | [address] | [place] [address] | [phone] | + + + + + POC Glucose (07/21/2020 4:30 PM PDT) + + + + + + | Component | Value | Ref Range | Performed | Pathologist | | | | | At | Signature | + + + + + + | Glucose, | 160 (H)Comment: Testing | 65 - 99 mg/dL | [facility] | | | POC | performed at [facility];[address] | | LABORATORY | | | | [address];[place], [place] | | | | | | [address] | | | | + + + + + + + + | Specimen | + + | | + + + + + + + | Performing | Address | City/State/Zipcode | Phone Number | | Organization | | | | + + + + + | [facility] | [address] | [place] [address] | [phone] | + + + + + POC Glucose (07/21/2020 12:39 PM PDT) + + + + + + | Component | Value | Ref Range | Performed | Pathologist | | | | | At | Signature | + + + + + + | Glucose, | 120 (H)Comment: Testing | 65 - 99 mg/dL | [facility] | | | POC | performed at [facility];[address] | | LABORATORY | | | | [address];[place], [place] | | | | | | [address] | | | | + + + + + + + + | Specimen | + + | | + + + + + + + | Performing | Address | City/State/Zipcode | Phone Number | | Organization | | | | + + + + + | [facility] | [address] | [place] [address] | [phone] | + + + + + [place] [...] | | | POC | performed at [facility];[address] | | LABORATORY | | | | [address];[place], [place] | | | | | | [address] | | | | + + + + + + + + | Specimen | + + | | + + + + + + + | Performing | Address | City/State/Zipcode | Phone Number | | Organization | | | | + + + + + | [facility] | [address] | [place] [address] | [phone] | + + + + + Magnesium (07/21/2020 6:40 AM PDT) + + + + + + | Component | Value | Ref Range | Performed | Pathologist | | | | | At | Signature | + + + + + + | Magnesium | 2.3Comment: Testing | 1.7 - 2.4 mg/dL | [facility] | | | | performed at [facility];[address] | | LABORATORY | | | | [address];[place], [place] | | | | | | [address] | | | | + + + + + + + + | Specimen | + + | Blood | + + + + + + + | Performing | Address | City/State/Zipcode | Phone Number | | Organization | | | | + + + + + | [facility] | [address] | [place] [address] | [phone] | + + + + + CBC [...] | | | Absolute | performed at [facility];[address] | K/uL | LABORATORY | | | | [address];[place], [place] | | | | | | [address] | | | | + + + + + + + + | Specimen | + + | Blood | + + + + + + + | Performing | Address | City/State/Zipcode | Phone Number | | Organization | | | | + + + + + | [facility] | [address] | [place] [address] | [phone] | + + + + + Basic [...] 40 (L)Comment: GFR <60: | >60 | [facility] | | | GFR | CHRONIC [...] | | | | | | MDRD [facility] traceable | | | | | | equation.Testing | | | | | | performed at [facility] | | | | | | [facility];[place], [place] | | | | | | [address] | | | | + + + + + + + + | Specimen | + + | Blood | + + + + + + + | Performing | Address | City/State/Zipcode | Phone Number | | Organization | | | | + + + + + | [facility] | [address] | [place] [address] | [phone] | + + + + + Protime INR (07/21/2020 6:40 AM PDT) + + + + + + | Component | Value | Ref Range | Performed | Pathologist | | | | | At | Signature | + + + + + + | INR | 3.2Comment: REFERENCE | | [facility] | | | | RANGE:0.9 - 1.2 [...] | | | | | performed at [facility];[address] | | | | | | [facility];[place] | | | | | | [address] | | | | + + + + + + + + | Specimen | + + | Blood | + + + + + + + | Performing | Address | City/State/Zipcode | Phone Number | | Organization | | | | + + + + + | [facility] | [address] | [place] [address] | [phone] | + + + + + CK Total (07/21/2020 6:40 AM PDT) + + + + + + | Component | Value | Ref Range | Performed | Pathologist | | | | | At | Signature | + + + + + + | CK TOTAL | 1,270 (H)Comment: | 55 - 400 U/L | [facility] | | | | Testing performed at | | LABORATORY | | | | [facility];[address] | | | | | | [address];[place] [address] | | | | + + + + + + + + | Specimen | + + | Blood | + + + + + + + | Performing | Address | City/State/Zipcode | Phone Number | | Organization | | | | + + + + + | [facility] | [address] | [place] [address] | [phone] | + + + + + POC [...] | | | POC | performed at [facility];[address] | | LABORATORY | | | | [address];[place], [place] | | | | | | [address] | | | | + + + + + + + + | Specimen | + + | | + + + + + + + | Performing | Address | City/State/Zipcode | Phone Number | | Organization | | | | + + + + + | [facility] | [address] | [place] [address] | [phone] | + + + + + POC [...] | | | POC | performed at [facility];[address] | | LABORATORY | | | | [address];[place], [place] | | | | | | [address] | | | | + + + + + + + + | Specimen | + + | | + + + + + + + | Performing | Address | City/State/Zipcode | Phone Number | | Organization | | | | + + + + + | [facility] | [address] [facility] | [place] [address] | [phone] | + + + + + POC [...] | | | POC | performed at [facility];[address] | | LABORATORY | | | | [address];[place], [place] | | | | | | [address] | | | | + + + + + + + + | Specimen | + + | | + + + + + + + | Performing | Address | City/State/Zipcode | Phone Number | | Organization | | | | + + + + + | [facility] | [address] | [place] [address] | [phone] | + + + + + CK Total (07/20/2020 4:07 PM PDT) + + + + + + | Component | Value | Ref Range | Performed | Pathologist | | | | | At | Signature | + + + + + + | CK TOTAL | 1,558 (H)Comment: | 55 - 400 U/L | [facility] | | | | Testing performed at | | LABORATORY | | | | [facility];[address] | | | | | | [address];[place] [address] | | | | + + + + + + + + | Specimen | + + | Blood | + + + + + + + | Performing | Address | City/State/Zipcode | Phone Number | | Organization | | | | + + + + + | [facility] | [address] | [place] [address] | [phone] | + + + + + POC Glucose (07/20/2020 11:43 AM PDT) + + + + + + | Component | Value | Ref Range | Performed | Pathologist | | | | | At | Signature | + + + + + + | Glucose, | 94Comment: Testing | 65 - 99 mg/dL | [facility] | | | POC | performed at [facility];[address] | | LABORATORY | | | | [address];[place], [place] | | | | | | [address] | | | | + + + + + + + + | Specimen | + + | | + + + + + + + | Performing | Address | City/State/Zipcode | Phone Number | | Organization | | | | + + + + + | [facility] | [address] | [place] [address] | [phone] | + + + + + POC Glucose (07/20/2020 7:54 AM PDT) + + + + + + | Component | Value | Ref Range | Performed | Pathologist | | | | | At | Signature | + + + + + + | Glucose, | 89Comment: Testing | 65 - 99 mg/dL | [facility] | | | POC | performed at [facility];[address] | | LABORATORY | | | | [address];[place] | | | | | | [address] | | | | + + + + + + + + | Specimen | + + | | + + + + + + + | Performing | Address | City/State/Zipcode | Phone Number | | Organization | | | | + + + + + | [facility] | [address] | [place] [address] | [phone] | + + + + + T4, Free (07/20/2020 5:53 AM PDT) + + + + + + | Component | Value | Ref Range | Performed | Pathologist | | | | | At | Signature | + + + + + + | FT4 | 1.3Comment: Testing | 0.7 - 1.5 ng/dL | [facility] | | | | performed at [facility];[address] | | LABORATORY | | | | [address];[place] | | | | | | [address] | | | | + + + + + + + + | Specimen | + + | | + + + + + + + | Performing | Address | City/State/Zipcode | Phone Number | | Organization | | | | + + + + + | [facility] | [address] | [place] [address] | [phone] | + + + + + TSH, Reflex Free T4 (07/20/2020 5:53 AM PDT) + + + + + + | Component | Value | Ref Range | Performed | Pathologist | | | | | At | Signature | + + + + + + | TSH | 0.372 (L) | 0.450 - 5.100 | [facility] | | | | | uIU/mL | LABORATORY | | + + + + + + + + | Specimen | + + | Blood | + + + + + + + | Performing | Address | City/State/Zipcode | Phone Number | | Organization | | | | + + + + + | [facility] | [address] | [place] [address] | [phone] | + + + + + Magnesium (07/20/2020 5:53 AM PDT) + + + + + + | Component | Value | Ref Range | Performed | Pathologist | | | | | At | Signature | + + + + + + | Magnesium | 2.3Comment: Testing | 1.7 - 2.4 mg/dL | [facility] | | | | performed at [facility];[address] | LABORATORY | | | | [address];[place], [place] | | | | | | [address] | | | | + + + + + + + + | Specimen | + + | Blood | + + + + + + + | Performing | Address | City/State/Zipcode | Phone Number | | Organization | | | | + + + + + | [facility] | [address] | [place] [address] | [phone] | + + + + + CBC [...] 0.03Comment: Testing | 0.00 - 0.10 | [facility] | | | Absolute | performed at [facility], [address] | LABORATORY | | | | [address], | | | | | | [place] [id number] | | | | + + + + + + + + | Specimen | + + | Blood | + + + + + + + | Performing | Address | City/State/Zipcode | Phone Number | | Organization | | | | + + + + + | [facility] | [address] [facility] | [place] [address] | [phone] | + + + + + Basic [...] 31 (L)Comment: GFR <60: | >60 | [facility] | | | GFR | CHRONIC [...] | | | | | performed at [facility];[address] | | | | | | [facility];[place], [place] | | | | | | [address] | | | | + + + + + + + + | Specimen | + + | Blood | + + + + + + + | Performing | Address | City/State/Zipcode | Phone Number | | Organization | | | | + + + + + | [facility] | [address] | [place] [address] | [phone] | + + + + + Martha PRYOR (07/20/2020 5:53 AM PDT) + + + [...] | | | | | performed at [facility] | | | | | | [address] [facility];[place], [place] | | | | | | [address] | | | | + + + + + + + + | Specimen | + + | Blood | + + + + + + + | Performing | Address | City/State/Zipcode | Phone Number | | Organization | | | | + + + + + | [facility] | [address] | [place] [address] | [phone] | + + + + + CK Total (07/20/2020 5:53 AM PDT) + + + + + + | Component | Value | Ref Range | Performed | Pathologist | | | | | At | Signature | + + + + + + | CK TOTAL | 1,876 (H)Comment: | 55 - 400 U/L | [facility] | | | | Testing performed at | | LABORATORY | | | | [facility];[address] | | | | [address];[place] [address] | | | | + + + + + + + + | Specimen | + + | Blood | + + + + + + + | Performing | Address | City/State/Zipcode | Phone Number | | Organization | | | | + + + + + | [facility] | [address] | [place] [address] | [phone] | + + + + + Lipid [...] | | | Calculated | performed at [facility], [address] | | LABORATORY | | | | [address], | | | | | | [place] [address] | | | | + + + + + + + + | Specimen | + + | Blood | + + + + + + + | Performing | Address | City/State/Zipcode | Phone Number | | Organization | | | | + + + + + | [facility] | [address] | [place] [address] | [phone] | + + + + + POC Glucose (07/19/2020 7:50 PM PDT) + + + + + + | Component | Value | Ref Range | Performed | Pathologist | | | | | At | Signature | + + + + + + | Glucose, | 110 (H)Comment: Testing | 65 - 99 mg/dL | [facility] | | | POC | performed at [facility];[address] | | LABORATORY | | | | [address];[place], [place] | | | | | | [address] | | | | + + + + + + + + | Specimen | + + | | + + + + + + + | Performing | Address | City/State/Zipcode | Phone Number | | Organization | | | | + + + + + | [facility] | [address] | [place] [address] | [phone] | + + + + + POC [...] | | | POC | performed at [facility];[address] | | LABORATORY | | | | [address];[place], [place] | | | | | | [address] | | | | + + + + + + + + | Specimen | + + | | + + + + + + + | Performing | Address | City/State/Zipcode | Phone Number | | Organization | | | | + + + + + | [facility] | [address] | [place] [address] | [phone] | + + + + + ECG [...] MD | | | | | | (2266) on 07/21/2020 | | | | | [...] 0.249 (L)Comment: | 0.450 - 5.100 | [facility] | | | | Testing performed at | uIU/mL | LABORATORY | | | | [facility];[address] | | [address];[place] [address] | | | | + + + + + + + + | Specimen | + + | | + + + + + + + | Performing | Address | City/State/Zipcode | Phone Number | | Organization | | | | + + + + + | [facility] | [address] | [place] [address] | [phone] | + + + + + Protime INR (07/19/2020 4:03 PM PDT) + + + + + + | Component | Value | Ref Range | Performed | Pathologist | | | | | At | Signature | + + + + + + | INR | 2.6Comment: REFERENCE | | [facility] | | | | RANGE:0.9 - 1.2 [...] | | | | | performed at [facility];[address] | | | | | | [address];[place] | | | | | | [address] | | | | + + + + + + + + | Specimen | + + | Blood | + + + + + + + | Performing | Address | City/State/Zipcode | Phone Number | | Organization | | | | + + + + + | [facility] | [address] | [place] [address] | [phone] | + + + + + CK [...] [address];[place] [address] | | | | + + + + + + + + | Specimen | + + | Blood | + + + + + + + | Performing | Address | City/State/Zipcode | Phone Number | | Organization | | | | + + + + + | [facility] | [address] | [place] [address] | [phone] | + + + + + POC Glucose (07/19/2020 1:11 PM PDT) + + + + + + | Component | Value | Ref Range | Performed | Pathologist | | | | | At | Signature | + + + + + + | Glucose, | 102 (H)Comment: Testing | 65 - 99 mg/dL | [facility] | | | POC | performed at [facility];[address] | | LABORATORY | | | | [address];[place] | | | | | | [address] | | | | + + + + + + + + | Specimen | + + | | + + + + + + + | Performing | Address | City/State/Zipcode | Phone Number | | Organization | | | | + + + + + | [facility] | [address] | [place] [address] | [phone] | + + + + + Procalcitonin [...] | | | | | | at [facility];[address] | | | | | | [facility];[place] [address] | | | | + + + + + + + + | Specimen | + + | Blood | + + + + + + + | Performing | Address | City/State/Zipcode | Phone Number | | Organization | | | | + + + + + | [facility] | [address] | [place] [address] | [phone] | + + + + + Basic [...] 6.6 (L) | 8.5 - 10.5 | [facility] | | | | | mg/dL | LABORATORY | | + + + + + + | Estimated | 36 (L)Comment: GFR <60: | >60 | [facility] [...] | | | | | performed at [facility] | | | | | | [address];[place], [place] | | | | | | [address] | | | | + + + + + + + + | Specimen | + + | Blood | + + + + + + + | Performing | Address | City/State/Zipcode | Phone Number | | Organization | | | | + + + + + | [facility] | [address] | [place] [address] | [phone] | + + + + + Phosphorus (07/19/2020 4:23 AM PDT) + + + + + + | Component | Value | Ref Range | Performed | Pathologist | | | | | At | Signature | + + + + + + | Phosphorus | 2.4Comment: Testing | 2.3 - 4.8 mg/dL | [facility] | | | | performed at [facility];[address] | | LABORATORY | | | | [address];[place], [place] | | | | | | [address] | | | | + + + + + + + + | Specimen | + + | Blood | + + + + + + + | Performing | Address | City/State/Zipcode | Phone Number | | Organization | | | | + + + + + | [facility] | [address] | [place] [address] | [phone] | + + + + + Magnesium (07/19/2020 4:23 AM PDT) + + + + + + | Component | Value | Ref Range | Performed | Pathologist | | | | | At | Signature | + + + + + + | Magnesium | 2.1Comment: Testing | 1.7 - 2.4 mg/dL | [facility] | | | | performed at [facility];[address] | | LABORATORY | | | | [address];[place], [place] | | | | | | [address] | | | | + + + + + + + + | Specimen | + + | Blood | + + + + + + + | Performing | Address | City/State/Zipcode | Phone Number | | Organization | | | | + + + + + | [facility] | [address] | [place] [address] | [phone] | + + + + + CBC [...] 0.03Comment: Testing | 0.00 - 0.10 | [facility] | | | Absolute | performed at [facility];[address] | K/uL | LABORATORY | | | | [address];[place], [place] | | | | | | [address] | | | | + + + + + + + + | Specimen | + + | Blood | + + + + + + + | Performing | Address | City/State/Zipcode | Phone Number | | Organization | | | | + + + + + | [facility] | [address] | [place] [address] | [phone] | + + + + + CK-MB [...] at | | | | | | [facility];[address] | | | | | | [address];[place] [address] | | | | + + + + + + + + | Specimen | + + | | + + + + + + + | Performing | Address | City/State/Zipcode | Phone Number | | Organization | | | | + + + + + | [facility] | [address] | [place] [address] | [phone] | + + + + + CK [...] | | LABORATORY | | | | [facility];[address] | | | | | [address];[place] [address] | | | | + + + + + + + + | Specimen | + + | Blood | + + + + + + + | Performing | Address | City/State/Zipcode | Phone Number | | Organization | | | | + + + + + | [facility] | [address] | [place] [address] | [phone] | + + + + + Troponin I (07/19/2020 4:22 AM PDT) + + + + + + | Component | Value | Ref Range | Performed | Pathologist | | | | | At | Signature | + + + + + + | Troponin I | 0.815 ()Comment: | 0.00 - 0.04 | [facility] | | | | 0.04 ng/mL or [...] | | | | CALLED TO 10RP DEBURR OPERATOR | | | | | | GITA Overton AT 0524 BY | | | | | | MWREAD BACK RESULTS | | | | | | VERIFIEDTesting | | | | | | performed at [facility];[address] | | | | | | [address];[place] | | | | | | [address] | | | | + + + + + + + + | Specimen | + + | Blood | + + + + + + + | Performing | Address | City/State/Zipcode | Phone Number | | Organization | | | | + + + + + | [facility] | [address] | [place] [address] | [phone] | + + + + + POC [...] | | | POC | performed at [facility];[address] | | LABORATORY | | | | [address];[place] | | | | | | [address] | | | | + + + + + + + + | Specimen | + + | | + + + + + + + | Performing | Address | City/State/Zipcode | Phone Number | | Organization | | | | + + + + + | [facility] | [address] | [place] [address] | [phone] | + + + + + VAS [...] Report Signed by: | | | Negro Palmer Chet Sign Date/Time: 07/27/2020 1:50 PM | | [...] Procedure Note | + + | Rocky, [id number] - 07/27/2020 1:53 PM PDT | | [...] + + | Performing | Address | City/State/[facility] | Phone Number | | Organization | [...] | | | | | performed at [facility] | | | | | | [facility];[place], [place] | | | | | | [address] | | | | + + + + + + + + | Specimen | + + | | + + + + + + + | Performing | Address | City/State/Zipcode | Phone Number | | Organization | | | | + + + + + | [facility] | [address] | [place] [address] | [phone] | + + + + + RAPID STREP SWAB COLLECTION (07/18/2020 8:06 PM PDT) + + + + + + | Component | Value | Ref Range | Performed | Pathologist | | | | | At | Signature | + + + + + + | Collection | THROATComment: Testing | | [facility] | | | | performed at [facility];[address] | | LABORATORY | | | | [address];[place] | | | | | | [address] | | | | + + + + + + + + | Specimen | + + | | + + + + + + + | Performing | Address | City/State/Zipcode | Phone Number | | Organization | | | | + + + + + | [facility] | [address] | [place] [address] | [phone] | + + + + + XR [...] Procedure Note | + + | Rocky, [id number] - 07/18/2020 7:35 PM PDT | | [...] Procedure Note | + + | Rocky, [id number] - 07/18/2020 7:37 PM PDT | | [...] (H)Comment: CALLED | 0.4 - 2.0 | [facility] | | | Serum | NURSING UNITCASSIE AT | mmol/L | LABORATORY | | | | [address] LMCT[address] | | | | | | performed at [facility];[address] | | | | | | [address];[place] | | | | | | [address] | | | | + + + + + + + + | Specimen | + + | Blood | + + + + + + + | Performing | Address | City/State/Zipcode | Phone Number | | Organization | | | | + + + + + | [facility] | [address] | [place] [address] | [phone] | + + + + + Culture, Blood (07/18/2020 6:43 PM PDT) + + + + + + | Component | Value | Ref Range | Performed | Pathologist | | | | | At | Signature | + + + + + + | Special | [facility] | | [facility] | | | Requests | | | LABORATORY | | + + + + + + | Special | Testing performed at | | [facility] | | | Requests | [facility];[address] | | LABORATORY | | | | [address];[place] [address] | | | | + + + + + + | Culture | NO GROWTH 6 DAYS | | [facility] | | | | | | LABORATORY | | + + + + + + | Culture | Testing performed at | | [facility] | | | | TCL, [address] [facility] | | LABORATORY | | | | [place], [place], [place] | | | | | | [address]Lhimkfx: Testing | | | | | | performed at [facility], [address] | | | | | | [facility], [place], [place] | | | | | | [address] | | | | + + + + + + + + | Specimen | + + | Blood - Peripheral | | blood specimen | | (specimen) | + + + + + + + | Performing | Address | City/State/Zipcode | Phone Number | | Organization | | | | + + + + + | [facility] | [address] | [place] [address] | [phone] | + + + + + Culture, [...] Special | Testing performed at | | [facility] | | | Requests | [facility];[address] | | LABORATORY | | | | Blvd;[place] [address] | | | | + + + + + + | Culture | NO GROWTH 6 DAYS | | [facility] | | | | | | LABORATORY | | + + + + + + | Culture | Testing performed at | | [facility] | | | | TCL, [address] [facility] | | LABORATORY | | | | [facility] [place], [place] | | | | | | [address]Orqgsdr: Testing | | | | | | performed at [facility], [address] | | | | | | [place], [place] | | | | | | [address] | | | | + + + + + + + + | Specimen | + + | Blood - Peripheral | | blood specimen | | (specimen) | + + + + + + + | Performing | Address | City/State/Zipcode | Phone Number | | Organization | | | | + + + + + | [facility] | [address] | [place] [address] | [phone] | + + + + + CK Total (07/18/2020 5:37 PM PDT) + + + + + + | Component | Value | Ref Range | Performed | Pathologist | | | | | At | Signature | + + + + + + | CK TOTAL | 2,937 (H)Comment: | 55 - 400 U/L | [facility] | | | | Testing performed at | | LABORATORY | | | | [facility];[address] | | [address];[place] [address] | | | | + + + + + + + + | Specimen | + + | Blood | + + + + + + + | Performing | Address | City/State/Zipcode | Phone Number | | Organization | | | | + + + + + | [facility] | [address] | [place] [address] | [phone] | + + + + + Procalcitonin [...] | | | | | | at [facility];[address] [facility] | | | | | | [address];[place] [address] | | | | + + + + + + + + | Specimen | + + | | + + + + + + + | Performing | Address | City/State/Zipcode | Phone Number | | Organization | | | | + + + + + | [facility] | [address] | [place] [address] | [phone] | + + + + + PTT (07/18/2020 5:37 PM PDT) + + + + + + | Component | Value | Ref Range | Performed | Pathologist | | | | | At | Signature | + + + + + + | PTT | 54 (H)Comment: Testing | 23 - 32 seconds | [facility] | | | | performed at [facility];[address] | | LABORATORY | | | | [address];[place], [place] | | | | | | [address] | | | | + + + + + + + + | Specimen | + + | | + + + + + + + | Performing | Address | City/State/Zipcode | Phone Number | | Organization | | | | + + + + + | [facility] | [address] | [place] [address] | [phone] | + + + + + Protime INR (07/18/2020 5:37 PM PDT) + + + + + + | Component | Value | Ref Range | Performed | Pathologist | | | | | At | Signature | + + + + + + | INR | 2.6Comment: REFERENCE | | [facility] | | | | RANGE:0.9 - 1.2 [...] | | | | | performed at [facility];[address] | | | | | | [address];[place] | | | | | | [address] | | | | + + + + + + + + | Specimen | + + | Blood | + + + + + + + | Performing | Address | City/State/Zipcode | Phone Number | | Organization | | | | + + + + + | [facility] | [address] | [place] [address] | [phone] | + + + + + Phosphorus (07/18/2020 5:37 PM PDT) + + + + + + | Component | Value | Ref Range | Performed | Pathologist | | | | | At | Signature | + + + + + + | Phosphorus | 2.5Comment: Testing | 2.3 - 4.8 mg/dL | [facility] | | | | performed at [facility];[address] | | LABORATORY | | | | [address];[place] | | | | | | [address] | | | | + + + + + + + + | Specimen | + + | Blood | + + + + + + + | Performing | Address | City/State/Zipcode | Phone Number | | Organization | | | | + + + + + | [facility] | [address] | [place] [address] | [phone] | + + + + + Magnesium (07/18/2020 5:37 PM PDT) + + + + + + | Component | Value | Ref Range | Performed | Pathologist | | | | | At | Signature | + + + + + + | Magnesium | 1.9Comment: Testing | 1.7 - 2.4 mg/dL | [facility] | | | | performed at [facility];[address] | | LABORATORY | | | | [address];[place] | | | | | | [address] | | | | + + + + + + + + | Specimen | + + | Blood | + + + + + + + | Performing | Address | City/State/Zipcode | Phone Number | | Organization | | | | + + + + + | [facility] | [address] | [place] [address] | [phone] | + + + + + CBC [...] | | | Absolute | performed at [facility];[address] | K/uL | LABORATORY | | | | [address];[place], [place] | | | | | | [address] | | | | + + + + + + + + | Specimen | + + | Blood | + + + + + + + | Performing | Address | City/State/Zipcode | Phone Number | | Organization | | | | + + + + + | [facility] | [address] | [place] [address] | [phone] | + + + + + Comprehensive [...] | | | | | performed at [facility];[address] | | | | | | [address];[place], [place] | | | | | | [address] | | | | + + + + + + + + | Specimen | + + | Blood | + + + + + + + | Performing | Address | City/State/Zipcode | Phone Number | | Organization | | | | + + + + + | [facility] | [address] [facility] | [place] [address] | [phone] | + + + + + CK-MB [...] at | | | | | | [facility];[address] [place] [address] | | | | | | [address];[place] [address] | | | | + + + + + + + + | Specimen | + + | Blood | + + + + + + + | Performing | Address | City/State/Zipcode | Phone Number | | Organization | | | | + + + + + | [facility] | [address] | [place] [address] | [phone] | + + + + + B [...] | | LABORATORY | | | | [facility];[address];[place] [address] | | | | + + + + + + + + | Specimen | + + | Blood | + + + + + + + | Performing | Address | City/State/Zipcode | Phone Number | | Organization | | | | + + + + + | [facility] | [address] | [place] [address] | [phone] | + + + + + Troponin I (07/18/2020 5:37 PM PDT) + + + + + + | Component | Value | Ref Range | Performed | Pathologist | | | | | At | Signature | + + + + + + | Troponin I | 1.265 ()Comment: | 0.00 - 0.04 | [facility] | | | | 0.04 ng/mL or [...] at | | | | | | [facility];[address] | | | [address];[place] [address] | | | | + + + + + + + + | Specimen | + + | Blood | + + + + + + + | Performing | Address | City/State/Zipcode | Phone Number | | Organization | | | | + + + + + | [facility] | [address] | [place] [address] | [phone] | + + + + + Urinalysis [...] - 1.030 | [facility] | | | [place], | | | LABORATORY | | | [...] LABORATORY | | | Cells, | [facility];[address] [facility] | | | | | Urine | [address];[place] [address] | | | | + + + [...] | + + + + + | [facility] | [address] | [place] [address] | [phone] | + + + + + Coronavirus (COVID-19) NAAT (07/18/2020 5:10 PM PDT) + + + + + + | Component | Value | Ref Range | Performed | Pathologist | | | | | At | Signature | + + + + + + | SARS-CoV-2, | POSITIVE (A)Comment: | NEG | [facility] | | | NAAT | This [...] | | | | | performed at [facility];[address] | | | | | | [facility];[place], [place] | | | | | | [address] | | | | + + + + + + + + | Specimen | + + | Tissue - Entire | | nasopharynx (body | | structure) | + + + + + + + | Performing | Address | City/State/Zipcode | Phone Number | | Organization | | | | + + + + + | [facility] | [address] | [place] [address] | [phone] | + + + + + POC Glucose (07/18/2020 5:03 PM PDT) + + + + + + | Component | Value | Ref Range | Performed | Pathologist | | | | | At | Signature | + + + + + + | Glucose, | 150 (H)Comment: Testing | 65 - 99 mg/dL | [facility] | | | POC | performed at [facility];[address] | | LABORATORY | | | | [address];[place] | | | | | | [address] | | | | + + + + + + + + | Specimen | + + | | + + + + + + + | Performing | Address | City/State/Zipcode | Phone Number | | Organization | | | | + + + + + | [facility] | [address] | [place] [address] | [phone] | + + + + + documented in this encounter Visit Diagnoses + + | Diagnosis | + + | Shock (HCC) - Primary Shock, unspecified | + + | 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 | [...] of unspecified type of vessel, | | enterprise or graft | + + | Diabetes [...] | | | | | Throat, Starting Fri07/18/20 at | | | | | [...] | | Oral, DAILY, First dose on Tue | | AM PDT | | | [...] Starting Tue | | | 07/18/20 at 1955, For blood | | | glucose 50-69 [...] | | | | | | | 3870-8492 Use NIGHT DOSE for | | | | | | | doses scheduled: HS, | | | | | | | Nighttime 4260-5430 If the BG is | | | [...] AM PDT | | | | | Fri07/21/20 at 0900, Tablet may | | | [...] | 4 TIMES DAILY, First dose on Fri | | | | | | | 07/18/20 at 2345, Chris well., | | | | | | | [...] | | | | First dose on 07/24/20 at 0900 | | | | | [...]
--- OUTSIDE RECORDS SUMMARY | ~2020-08-01 | XMS | Encounter Summary ---
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 | 2 diabetes mellitus | | | | [address] [place], [place] | [place] [address] | without | | | | [address] | | complications (HCC); | | | | [phone] | | Chronic kidney | | | [...]
--- OUTSIDE RECORDS SUMMARY | ~2020-08-01 | XMS | Encounter Summary ---
Demographics + + + | Address | [address] | | | [place] [address] | + + + | Home Phone [...] Team Providers + +------+ + | Care Gas Brazer Name | Role | Phone | + +------+ + | Gilberto Estrada MD | PCP | | + +------+ + Reason for Visit + +--------+ + | Reason | Onset | Comments | | | Date | | + +--------+ + | RN Care Management | 07/09/ | Resumed care at home post DC from [place] | | | 2017 | | + [...] at | | | | [address] | [facility] | home post DC from | | | | [facility] | [place], [place] | [facility]); | | | | [place], [address] floor | [address] | Infectious disease | | | | [place], [place] | [phone] | | | | | [address] | | | | | | [phone] | | | +--------+ + + + [...] RN - 07/09/2018 2:39 PM Luca, from [facility] , called to inform us that the patient was DC'd from [facility] yesterday and is back on service [...]
--- OUTSIDE RECORDS SUMMARY | ~2020-08-01 | XMS | Encounter Summary ---
Demographics + + + | Address | [address] | | | [place] [address] | + + + | Home Phone [...] Providers + +------+ + | Care Certified Scrum Master Name | Role | Phone | + [...] | | | | | | PLE IN EGD | | | | | [...] | | | | | [address] [place] | | | | | [place] | [address] | | | | | [address] | [phone] | | | | | [phone] | | | +--------+ + + + [...] explained and consent obtained. Patient transported to [facility], | | | 7 | | [...] 02/10/19 1400 by | | eral | [id number]-[id number] catheter system; | Neyda Johnson RN | [...] Duane L Maxwell 78 y.o. male 1940 [id number] Procedure(s) EGD WITH DILITATION (N/A Mouth) Cooperates? [...] signed by Thang Sarmiento MD 02/10/2019 14:13 [facility] nesthesia Preprocedure Evaluation - Thang Sarmiento MD - 2018 7:36 AM PDT ANESTHESIA PREANESTHESIA EVALUATION Duane Mas 78 y.o. 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 (+) congestive heart failure. . Pulmonary [...] situ - MEDTRONIC Class I, BMI 30-34.9 jail current use of anticoagulant - COUMADIN Beta Blockers - Daily Use Diabetes mellitus, type II - ORAL Control [id number]-[id number] lying flat DAIJA II Inhibitors - Daily Use Chronic renal insufficiency, stage 4 (severe) . Electronically Signed by: Thang Sarmiento MD ESi date/time: 02/10/2019 7:36 documented in [facility] encounter Miscellaneous Notes Addendum Note - Thang Sarmiento MD - 02/10/2019 2:50 PM PDTFormatting of this note mi ght be different from the original. Addendum created 02/10/19 4250 by Thang Sarmiento MD SmartForm saved documented [...]
--- OUTSIDE RECORDS SUMMARY | ~2020-08-01 | XMS | Encounter Summary ---
Demographics + + + | Address | [address] | | | [place] [address] | + + + | Home Phone [...] Providers + +------+ + | Care Supervisor [place] Name | Role | Phone | + [...] ALEX HANDY | | | | | [facility] | [place] [address] | | | | | [address] | [phone] | | | | | [phone] | | | +--------+ + + + [...] TR Vmax: | | | 2.03 m/s Grievance And Appeals Coordinator: CAROLYN Authenticated by: López Rothman | | [...] cmLVIDd: 5.53 cmLVPWd: 0.81 cmLVOT Area: 3.93 [id number] Diam: 2.23 | | cm%FS: 24.16 %EF(Teich): 47.55 %ESV(Teich): 78.38 mlLVIDs: 4.19 cmSV(Teich): | | 71.06 mlRVIDd: 3.43 cmLVEF MOD A2C: 47.07 %SV MOD A2C: 71.24 mlLVEDV MOD A2C: | | 151.33 mlLVLd A2C: 8.47 cmLVEDV MOD A4C: 149.39 mlLVLd A4C: 8.40 cmLVESV MOD A2C: | | 80.08 mlLVLs A2C: 6.93 cmLAESV(A-L): 51.54 mlLAESV Index (A-L): 24.66 ml/m2LAAs | | A2C: 14.93 [id number] A-L A2C: 40.51 mlLALs A2C: 4.67 cmLAAs A4C: 18.74 [id number] | | A-L A4C: 64.72 mlLALs A4C: 4.60 cmRAAs: 18.61 [id number] A-L: 72.61 mlRAESV MOD: | | 64.47 mlRALs: 4.04 cmTAPSE: 1.97 cmAV maxP.48 mmHgAV meanP.71 mmHgAV | | Vmax: 1.27 m/Nikita Vmean: 0.91 m/Nikita VTI: 27.28 cmAVA Vmax: 2.66 cm2AVA (VTI): | | 2.84 in3JBPM Vmax: 0.00 cm2/m2AVAI (VTI): 0.00 cm2/m2LVOT maxP.96 mmHgLVOT | | meanP.79 mmHgLVSI Dopp: 37.08 ml/m2LVSV Dopp: 77.51 mlLVOT Vmax: 0.86 | | m/sLVOT Vmean: 0.64 m/sLVOT VTI: 19.68 cmMV A Tramaine: 0.83 m/sMV DecT: 148.14 msMV | | E Tramaine: 0.67 m/sMV E/A Ratio: 0.81MV PHT: 42.96 msMVA By PHT: 5.12 an6Kkrmxz e': | | 0.05 m/sSeptal E/e': 11.72Lateral e': 0.10 m/sLateral E/e': 6.21RAP: 5 | | mmHgRVSP: 21.63 mmHgTR maxP.63 mmHgTR Vmax: 2.03 m/s Grievance And Appeals Coordinator: | | DBSAuthenticated by: López [facility] Date/Time: 08-07-2017 17:18:39 IMPRESSION: | | [...] |TR Vmax: 2.03 m/s | | | |Grievance And Appeals Coordinator: DBS | |Authenticated by: López Rothman | [...]
--- OUTSIDE RECORDS SUMMARY | ~2020-08-01 | XMS | Encounter Summary ---
Demographics + + + | Address | [address] | | | [place] [address] | + + + | Home Phone [...] Team Providers + +------+ + | Care Kiln Burner Name | Role | Phone | + +------+ + | Erin Forrester MD | PCP | | + +------+ + Encounter Details +--------+ + + + + | Date | Type | Department | Care Team | Description | +--------+ + + + + | 10/09/ | Orders Only | [facility] | Robel Ricci | | | 2014 | | CARDIOLOGY [place] | [address] | | | | | N[facility] [address] | Kiran Chou | | | | | [address] | [place] [address] | | | | | [place], [place] | [phone] | | | | | [address] | | | | | | [phone] | | | +--------+ + + + [...] Performed At | + + + | [facility] CARDIOLOGY Nuclear Lexiscan Stress Test [...] [place], Rad Conversion - 06/17/2019 11:57 PM [facility] | | Lexiscan Stress Test [...]
--- OUTSIDE RECORDS SUMMARY | ~2020-08-01 | XMS | Encounter Summary ---
Demographics + + + | Address | [address] | | | [place] [address] | + + + | Home Phone [...] Team Providers + +------+ + | Care Template Fitter Name | Role | Phone | [...] PADMINI [address] | | | | | [address] | [address] | | | | | [address] | [place], [place] | | | | | [place], [facility] floor | [address] | | | | | [place], [place] | [phone] | | | | | [address] | | | | | | [phone] | | | +--------+ + + + [...]
--- OUTSIDE RECORDS SUMMARY | ~2020-08-01 | XMS | Encounter Summary ---
Demographics + + + | Address | [address] | | | [place] [address] | + + + | Home Phone [...] Team Providers + +------+ + | Care Administration Clerk Name | Role | Phone | [...] | | | | | associated | [address] | | | | | | with | [address] | | | | | | internal | Mary Norris | | | | | | right knee | [place], [place] | | | | | | prosthesis, | [address] | | | | | | subsequent | Phone: | | | | | | encounter | [phone] | | | | | | Procedures | Fax: | | | | | | OCCUPATIONAL | [phone] | | | | | | THERAPY [...] | | | | | associated | [address] | | | | | | with | Justus Hassan | | | | | | internal | Mary Norris | | | | | | right knee | [place], [place] | | | | | | prosthesis, | [address] | | | | | | subsequent | Phone: | | | | | | encounter | [phone] | | | | | | Procedures | Fax: | | | | | | PHYSICAL | [phone] | | | | | | THERAPY [...] + + | 06/11/ | Hospital | [facility] [address] | Sandra Valle MD | | | 2018 - | Encounter | [address] | [address] | | | | | [place], | [facility] [address] | | | 06/17/ | | [place] [address] | [place], [place] | | | 2018 | | [phone] | [address] | | | | | | [phone] | | | | | | | | | | | | Edyta Demarco MD | | | | | | [address] | | | | | | [facility] [address] | | | | | | [place], [place] | | | | | | [address] | | | | | | [phone] | | | | | | | | | | | | Dean Ugarte MD | | | | | | [address] | | | | | | [address] [place], | | | | | | [place] [address] | | | | | | [phone] | | | | | | | | | | | | Stephan Mercado MD | | | | | | [address] | | | | | | [facility] [address] | | | | | | [place], [place] | | | | | | [address] | | | | | | [phone] | | | | | | | | | | | | Dayan Valverde, | | | | | | [address] | | | | | | [facility] [address] | | | | | | [place], [place] | | | | | | [address] | | | | | | [phone] | | | | | | | | | | | | Hugh Park MD | | | | | | [address] | | | | | | [place], | | | | | | [place] [address] | | | | | | [phone] | | | | | | | | | | | | Ann Mahmood MD | | | | | | [address] | | | | | | [address] | | | | | | [place], [place] | | | | | | [address] | | | | | | [phone] | | | | | | | [...] (s/p PCI x3, CABG x2) complicated by senior oracle dba erich systolic heart failure (EF 45%) due [...] excellent response. He will continue PT/OT at [facility] swing bed unit. Per orthopedic surgery, [...] I-CAPS 280-10-2 mg Cap Generic drug: antiox. no.75-aoed5i-getaolj6y-abx-qga Take 1 capsule by mouth once daily. [...] (Non-Steroidal Anti-Inflammatory Drug) Renal Failure Avoid per Irish Moss Bleacher recommendations Sulfa (Sulfonamide Antibiotics) Rash Vital Signs [...] for after-discharge care Discharge Destination IP [facility] . Specialty: Acute Care Hospital Contact information [address] [facility] [address] [place] Location: [facility] swing bed unit Appointments: Dr. Sherman on 07/23/18 at 10:40am. The discharge note was forwarded to the PCP for review. Discharging Physician: Ann Mahmood MD Suggested CPT: 17518 Discharge Management > 30 minute I spent more than 35 minutes zwls-un-prom with the patient of which 70% was [...] | | 0 | | | | no.17-imlk7h-wrmjnqb2i-zgd-bkf | mouth once daily. | | | [...] negative pressure wound therapy dressing right knee [id number] Subjective: Doing ok overall. No CP/SOB. Tolerating [...] Plan to DC today to SNF in [place]. SNF can pull sutures at 2 weeks from operat kai date (June 27 is 2 weeks post op). Plan to return to Dr. Sherman' clinic 6 weeks an d also have ID clinic visit on that day. Appreciate [facility] and ID help in managing [...] knee at that time. Elias Soriano MD [facility] Department of Orthopaedics and Rehabilitation PGY-1 Pager [phone] Ann Vang MD - 4:42 PM PDT [...] (s/p PCI x3, CABG x2) complicated by senior oracle dba erich systolic heart failure (EF 45%) due [...] mg daily Dispo: Anticipate discharge tomorrow to [place] bed unit if renal function is s table Code status: Full code Diet: Regular diet Prophy: warfarin and heparin Ann Mahmood MD Pearl Handheadwaitress Clinical Hospitalist and Medicine Teaching Services [facility] Pager [phone] Suggested CPT: 52445 Subsequent Visit Detailed/High complexity 35 min I spent 37 minutes kffh-qw-nsnv with the patient of which 78% was [...] negative pressure wound therapy dressing right knee [id number] Subjective: Doing ok overall. No CP/SOB. Tolerating [...] to home as t ransporting back to [place] may present the patient and family undo hardship. 6. Dressings/Drains: Pulled yesterday? 7. Dispo/Discharge: Anticipate discharge to SNF in next 1-3 days if all criteria met. 8. Follow-up: Please call the clinic to make a follow up appointment in approximately 2 wee ks with ORTHO TRAUMA & FRACTURE, . AP and lateral of R knee at that time. Elias Soriano MD [facility] Department of Orthopaedics and Rehabilitation PGY-1 Pager [phone] atel, Tanvir - 06/16/2018 8:20 AM PDT [...] three and a half hours away from [place]. At this time, we are unsur e of his ability to follow up with an OPAT clinic or if there is a provider near [place], where the patient resides. 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 This patient was staffed [facility] Dr[facility] Villalobos, who agrees with the above assessment and plan unless otherwise documented. Tanvir Ayala [facility] P SUBJECTIVE Interval [...] Dona Mercado MD Division of Hospital Medicine [facility] Pager [phone] I spent more than 35 minutes jjqq-of-uwfn with the patient of which greater than [...] negative pressure wound therapy dressing right knee [id number] Subjective: Doing ok overall, not too much pain in right knee. Looking forward to getting back strip machine operator to home, "My wants to [...] to home as t ransporting back to [place] may present the patient and family undo hardship. 6. Dressings/Drains: Continue drain 7. Dispo/Discharge: Anticipate discharge to SNF in next 1-3 days if all criteria met. 8. Follow-up: Please call the clinic to make a follow up appointment in approximately 2 wee ks with ORTHO TRAUMA & FRACTURE, . AP and lateral of R knee at that time. Sisi Pablo [facility] Orthopaedic Trauma Surgery Pager [phone] Stephan Aguirre MD - 06/14/2018 8:59 AM [...] Dona Mercado MD Division of Hospital Medicine [facility] Pager [phone] I spent more than 35 minutes hydo-rr-wetp with the patient of which greater than [...] negative pressure wound therapy dressing right knee [id number] Subjective: Pain improving in R knee. Objective: [...] at that time. SEBAS PLEITEZ MD Pager [phone] Stephan Aguirre M D - 06/13/2018 9:51 [...] Dona Mercado MD Division of Hospital Medicine [facility] Pager [phone] I spent more than 35 minutes hdnj-wz-hcys with the patient of which greater than [...] negative pressure wound therapy dressing right knee [id number] Subjective: Painful in R knee today, but [...] at that time. SEBAS PLEITEZ MD Pager [phone] Stephan Aguirre M D - 06/12/2018 1:24 [...] Dona Mercado MD Division of Hospital Medicine [facility] Pager [phone] I spent more than 35 minutes zzcr-dx-czpp with the patient of which greater than [...] total arthroplasty. Nika martinez was referred to [facility] for joint revision, and presented emergently to [facility] ED from [facility] ([place], [place]). Prior to presentation patient states that [...] mild distal inferior-apical ischemia, LVEF 53%. -10/2015 [facility] with 90% ostial first diagonal, 85% ostial second diagonal, occluded stent of proximal RCA with left to right coronary collaterals, Patent SVG to LAD Ischemic Cardiomyopathy c/b Chronic Systolic Heart Failure and Diastolic Heart Failure -10/2015 [facility] with EF 45% and inferiobasal akinesia [...] po daily Carvedilol 12.5mg po daily -Y Stigler-3 fatty acid 1,200mg po bid Acetaminophen-codeine po [...] the Social Hx as appropriate. Lives in [place], [place], Greater than 40 PYH tobacco use, [...] patellar osteomyelitis at time of [facility] [place] with orthopedic sugery service consulting. [...] on going soft tisuse infection. -would consult pickle pumper for enhanced nutrition in post-operative period Non-Insulin [...] as unclear why patient was placed on core stripper anticoagulation after prior provoked DVT. Dean Ugarte MD Clinical Hospitalist Services [facility] Pager [phone] 06/11/2018 10:44 PM [facility] DEPARTMENT: Hosp ([facility]) - [id number] Place of Service: Date of Service: 07/25/2016 [facility] [id number] Modifiers:GC Resident Involved: No Service: PRIMARY HOSPITALIST Suggested CPT: 35152 Initial Visit Comp/High Complexity 70 min I [...] Antibiotics and Frequent lab draws Procedure location: Unit:[facility] Room: 14 Providers: Attending name: Attending physically present: No PICC Nurse name: Frances Fair RN BSN VAT Assisted by Christina March RN BSN VAT Pre-Procedure Consent: written consent obtained Consent given by: Patient Patient identity confirmed per protocol: Yes Team Pause: Immediatly prior to the procedure a pause per protocol was called. A pause veri fies correct patient, procedure, equipment, user support specialist and site/side marked as required. [...] area Basilic vein. Cat heter lot number: [id number] with a length of 55 cm was [...] Service: 08/01/2015 Attending Surgeon: Ghassan Sherman MD Environmental Health Physician(s): mesfin thompson MD Preoperative Diagnosis: 1. right total knee prosthetic joint infection. Postoperative Diagnosis: same Procedures Performed: 1. Right knee arthrotomy with drainage for infection and polyethylene exchange 2. Application TINO disposible negative pressure wound therapy dressing right knee [id number] Anesthesia: General endotracheal anesthesia. Implants: excahgned alisha triathalon poly size 15, 13mm EBL: 50 Complications: None Specimens: 6 cultures, 1 path Indication For Procedure: Solo Alves was transferred to [facility] for sepsis after previosuly having been treated with a right total knee. He ws medically unstable and transferred to [facility] medical service. An apsirate was positive. [...] Patricia wrap. He was then awoken from [facility] and transported back to the postanesthesia care [...] as it stands. Ghassan Sherman MD, MPH Sales Marketing Coordinator, [place] [address] [email or web address] mented in this encounter [...] patient will need to follow up at [facility] on July 23 with orthopedics. During t hat time,we will cooridnate so that he may follow up with ID/OPAT in regards to his treatmen t. He will be discharged to [facility] to receive inpatient therapy and OPAT. 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 at [facility]. If patient is discharged fr om [...] the primary team. This patient was staffed [facility] Dr. Villalobos, who agrees with the above assessment and plan unless otherwise documented. Tanvir Ayala [facility] P SUBJECTIVE Interval [...] 07/24/18 to be continued via OPAT at [facility] Microbiology Data: Source Date Results [...] tablet allopurinol 300 mg oral tablet antiox.mv no.80-lflc7h-hngdbxb8x-fgl-tgf (I-CAPS) 280-10-2 mg oral capsule carvedilol 12.5 [...] Anticoagulation Clinic/Provider: New PCP Dr. Don Estrada ([phone]) Date INR Warfarin Dose 06/17/2018 1.78 2.5 [...] make recommendations. Please page clinical ph armacist (#[phone]) or call central inpatient pharmacy ([phone]) with questions. Rashard Jacob Pharm. D. Candidate Associated attestation - Mary Wade [facility] - 06/17/2018 11:14 AM PDT--I have reviewed the note written by railroad dining car steward/stewardess Rashard Jacob and I agree with the content and his plan for warfarin on this patient. Thank you, Mary Wade [facility]. Pager [phone] Mary Wade [facility] - 06/16/2018 1:26 PM PDTFormatting of this [...] Anticoagulation Clinic/Provider: new PCP Dr. Don Estrada ([phone]) Date INR Warfarin Dose 06/16/2018 1.51 2.5mg [...] make recommendations. Please page clinical ph armacist (#[phone]) or call central inpatient pharmacy ([phone]) with questions. Thank you for consult, Mary Wade [facility]. Pager [phone] Trish Blankenship MD - 10:46 AM PDTAssociated Order(s): IP CONSULT TO INFECTIOUS DISEASESFormatting of [facility] note might be different from the original. [facility] Infectious Diseases OPAT Referral for Discharge Planning Team B: OPAT RN Jaye Winchester, Office: [phone], Pager: [phone] ID Diagnosis: PJI Antibiotic agent and dosing: [...] has an ortho appointment 10:40 sa day) Leveling Machine Operator: For all patients requiring IV antibiotic therapy, please route your OPAT [place] n of Care Note (.CMOPAT) to [facility] "p OPAT/Infectious Diseases clinic" Pool at [...] and make recommendations. Please page clinical pharmacist (#[phone]) or call central inpatient pharmacy ([phone]) with questions. Subjective/Objective: Allergies: Nsaids (non-steroidal anti-inflammatory [...] by his new PCP Don Estrada MD ([phone]). The patient reports Dr Estrada wanted him [...] Carrington. 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 We will discuss [facility] OPAT vs outside providers. Formalized recs pending Recommendations were communicated directly to the primary team. This patient was staffed [facility] Villalobos, who agrees with the above assessment and plan unless otherwise documented. Thank you for the consult, we will follow along with you. Tanvir Ayala [facility] P SUBJECTIVE HPI: Júnior Mas [...] arthritis. The patient was then transferred from [place] to [facility] for fu rther evaluation. While here, [...] 300 mg by mouth once daily. antiox. no.79-ekcp8k-mpgggol6d-xvg-hls (I-CAPS) 280-10-2 mg oral capsule Take 1 [...] mouth every Friday. Take [address] [facility] all other days of the week. Current [...] (Non-Steroidal Anti-Inflammatory Drug) Renal Failure Avoid per Irish Moss Bleacher recommendations Sulfa (Sulfonamide Antibiotics) Rash Social History [...] care. Ishaan Villalobos MD [facility], PharmD - 06/14/2018 7:36 PM PDT Pharmacy [...] lab draw. - Please page clinical pharmacist [phone]) or call central inpatient pharmacy ([phone]) wit h questions. Subjective/Objective: Júnior Mas, a [...] CULTURE, TISSUE-PROSTHETIC JOINT INFECTION AER AND MARIELOS [[id number]] (Abnormal) [facility] Collec dilcia: 06/12/18 1354 Lab Status: Preliminary result Specimen: Tissue from Knee - right Updated: 06/14/18 1344 CULTURE RESULT [facility] Staphylococcus epidermidis (A) Ref Range: Narrative: Culture Report: Staphylococcus epidermidis Gram Stain: No squamous epithelial cells Rare polymorphonuclear cells No organisms seen Thank you, Ramon Mercado, PharmD, [facility] Clinical Pharmacist elphine, Torey Adame [...] and make recommendations. Please page clinical pharmacist (#[phone]) or call central inpatient pharmacy ([phone]) with questions. Subjective/Objective: Júnior Mas, a 78 [...] by his new PCP Don Estrada MD ([phone]). The patient reports Dr Estrada wanted him [...] you for the consult, Evgeny Akers PharmD, [facility] Pager [phone] Evgeny Robles PharmD - 06/13/2018 8:41 AM [...] on stable regimen. Please page clinical pharmacist (#[phone]) or call central inpatient pharmacy ([phone]) with q uestions. Subjective/Objective: Indication: infectious disorder of joint Therapy start date: 06/12/18 Anticipated duration: TBD Goal trough: ~15 mg/L Urine output: unavailable for most of the past 24 hours Renal function: stable , current SCr 1.66 (Baseline SCr 1.6-1.8) Actual body weight: Weight: 86.7 kg (191 lb 1.6 oz) (06/13/18 0663) Pertinent cultures/sensitivities: 06/12/18 blood and tissue cultures - in process Thank you for the consult, Evgeny Akers PharmD, [facility] Pager [phone] Harley Echols MD - 06/11/2018 7:27 PM PDT [facility] DEPARTMENT OF ORTHOPAEDICS & REHABILITATION HISTORY & [...] knee arthroplasty done [place] [address] uHrst at [facility] for advance d DJD. He's [...] culture s pending. He was transferred to [facility] for further management of a septic prosthetic knee. Implants: [place] Triathlon Total Knee System 1. Size 4 [...] consented and added on to the [place] [facility] edu. Admitted to hospitalist service; keep NPO. PLAN: Disposition: admit to clinical hospitalist service Surgery: yes, I&D with staged revision tomorrow Diet: npo effective now Further Imaging: no additional at this time Supervision: Plan has been discussed with Dr. Leon. Follow up:Please call the clinic to make a follow up appointment in approximately 2 weeks w [facility] ORTHO TRAUMA & FRACTURE, The orthopaedics consult pager is [phone], please call with questions. Harley Weaver MD Resident Department of Orthopaedics Pager [phone] [facility] Department of Orthopaedics & Rehabilitation [address] [facility] Mail Code: OP31 [facility] [address] Associated attestation - Ghassan Sherman MD - [...] sitate to call me for questions. GHASSAN HSERMAN MD [facility] [address] [address]/[address] [place] [address] documented in this encounter ED [...] (H) 0.70 - 1.30 mg/dL EGFR - GUATEMALAN 39 (L) >60 mL/min EGFR NON -GUATEMALAN 32 (L) >60 mL/min SODIUM, PLASMA (LAB) [...] total knee replacement in 2012 done in [facility]. Right k nee also became more swollen at that time, though without any warmth or redness. Pain worse with any movement and better at rest. He was evaluated by his PCP and started on coumadin for question of DVT, though RLE ultraso und was negative. Seen by Dr. René Yen (orthopedics) in [place] 06/09 with the following labs. 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 Laboratory and imaging results including ESR, CRP were reviewed and interpreted, and notabl e for the following: - significantly elevated ESR and CRP - arthrocentesis at [place] with 79,000 WBCs The patient received the following in the emergency department (including medications, inte rventions, consultations, and reassessments): - orthopedics consultation, plan for [place] tomorrow Given this, patient required admission for further care. We spoke to [facility] ist service, who accepted patient to [...] Information: Patient discharging to swing bed at [facility] in [facility]. Reviewed DC to SNF AVS with patient and family, all questions answered, reinforced fo llow up appointments per AVS. PICC line in RUE with dressing CDI at discharge. TINO dressing CDI with green light flashing at discharge. Telephone report given to FLY Vanegas at [facility] facility at 1125. Transportation provided by [...] njury prevention even in recliner chair. (06/15/18 1596) [facility] IP NURSE HANDOFF: [facility] hospital course [...] njury prevention even in recliner chair. (06/15/18 1382) [facility] IP NURSE HANDOFF: [facility] hospital course [...] Met Case Management OPAT Plan of Care: [facility] hospital discharge date: 06/17/2018 This patient will be followed for all post hospital OPAT care needs by: [facility] OPAT/Infectiou s Diseases Clinic, ; IV antibiotic orders were provided to: Other vendor facility, Name: [facility] Swi ng Bed, , , Attn: [...] session other than pt and therapist: rehabilitation counselor Current unit: 9k Brief Hospital Course:Júnior [...] FWW: minimum assist, 15 feet with rehabilitation counselor stand by assist and follow ing [...] recommendations: to be determined . BRICE [address]ount [address] andoff - Emily Covarrubias RN - 06/16/2018 [...] prevention even in recliner chair. (06/15/18 0953) [facility] IP NURSE HANDOFF: [facility] hospital course [...] As evidenced by: Poor intake tonight from 9578-8718 despite encouragement. He states that his water [...] prevention even in recliner chair. (06/15/18 0940) [facility] IP NURSE HANDOFF: [facility] hospital course [...] to SNF in 1-2 days [facility] - 06/15/2018 1:02 [...] session other than pt and therapist: rehabilitation counselor and student observer Current unit: 9k [facility] Hospital Course: Júnior Mas is a [...] Equipment recommendations: to be determined [place] [address]ount [address] andoff - Maria Dolores Gurrola RN - [...] njury prevention even in recliner chair. (06/15/18 0036) [facility] IP NURSE HANDOFF: [facility] hospital course [...] nutrient distribution type or amount Nutrition Assessment: order builder received. Pt does not like food here, [...] Mendez, MS, RD, LD, CNSC Pager #: [phone] Comments: Júnior Mas is a 78 y.o. [...] patellar osteomyelitis at time of admission to [facility] medicine service with orthopedic sugery service [...] 29.04 kg/m2 AdjBW: 71.5 kg Estimated needs: 7884-4363 kcal/day (25-30 kcal/kg AdjBW); 72-107 g protein/day (1-1.5 g/kg AdjBW) Catrachita - Justus Zapata, RN - 06/15/2018 3:49 AM PDTNursing Handoff [facility] IP NURSE HANDOFF: [facility] hospital course [...] RN - 06/14/2018 5:38 PM PDTNursing Handoff [facility] IP NURSE HANDOFF: [facility] hospital course [...] encourage meals. Monitor UOP- no ouput from [id number]. [facility] notified- BMS ordered. encourage fluids. MOBILITY: [...] RN - 06/14/2018 2:13 PM PDTNursing Handoff [facility] IP NURSE HANDOFF: [facility] hospital course [...] PM PDT Physical Therapy Evaluation and Treatment [id number] JÚNIOR MAS [facility] Day: 3 Date of : 1940 Start [...] than therapist and pt: patient and son; BLOCKMAN surjit hylton with mobility portion of session. [...] going down ramp) Vision/Hearing: hearing aids (very [place]; states he refuses hearing aids) Patient / Family Goal: patient will not state; patient : For patient to return home. Language: Palestinian. Barriers: Very [place], not fully attentive. Pain: "lots"; refuses to [...] assist after focus on m idline. PT, BLOCKMAN and patient encourage patient to get up [...] underestimate Ended session: Patient supine in bed. BLOCKMAN attending to patient. ASSESSMENT: Patient presents s/p [...] Patient will score 20 >/= 24/24 on [facility] Basic Mobility outcomes measure upon discharge. Outcome: [...] RN - 06/14/2018 2:37 AM PDTNursing Handoff [facility] IP NURSE HANDOFF: [facility] hospital course [...] RN - 06/13/2018 1:32 AM PDTNursing Handoff [facility] IP NURSE HANDOFF: [facility]jo hospital course [...] information: see anesthesia record Functional Epidural: No BARREL RACER: No Respiratory: RR: 17, O2 Sat: 98 %, O2 Delivery: Nasal cannula Breath Sounds: WDL Except (SEUN - not diagnosed) TAYLOR: LLL: RUL: RLL: SEUN No Comment: none Cardiac: BP: 113/47 HR: 94 GI: Nausea/Vomiting Status: No Signs/Symptoms: Interventions: Assessment: Comments: toleratingPO : Last void: at 1900 Contact Name: Beth Contact Number: [phone] Family contacted: Yes Comment:updated family Belongings:none in [...] in the provider note. Sandra Valle MD [facility] [employer] ransfer Note - Arnie Busby ANP - 06/11/2018 3:19 PM PDT Call from Dr. Eric Yen, [facility] Pt with hx of CHF with significant fluid retention, right knee replacement, chronic leg ulc ers has infected total knee. Presented to clinic today with right knee swelling and pain. Right knee aspirate today: 79k white cells Markedly elevated CRP and sed rate Temp 99.4, vitals stable and normal Spoke with [facility] orthopedic surgeon Dr. Leon who advised transfer to [facility] ED [facility] Rita Alex - 06/11/2018 3:19 PM PDTPt with post procedure infection, R total knee. Connected ref with ROCAEL Sanders. [facility] Rita Barker - 06/11/2018 2:09 PM PDTRef previously consulted [facility] Dr. Maral Leon who advised PT to come to [facility] ED. Advised Dr. Yen to [...] organism | | | | | | ([facility]) | | + +--------+ + [...] organism | | | | | | ([facility]) | | + +--------+ + [...] organism | | | | | | ([facility]) | | + +--------+ + [...] | | | POC | | | OPHEILA LOZADA | | | | | | [...] - D[facility]SHANA | [address] | [place], [place] | | | KIERRA POINT OF CARE | [address] | [address] | | | TESTS | | | [...] | [address] | [place] [address] | | | SERVICES, CORE | PARK [...] | | | LABORATORY | | | GU[place]AN | | | SERVICES, | | | [...] the MDRD equation recommended by the | [facility] | | National Kidney Disease Education [...] | + + + + + | [facility] | [address] [facility] | [place] [address] | | | SERVICES, CORE | MARY [...] [facility] | [address] | [place], [place] | | | OPHELIA LOZADA OF CARE | [facility] | [address] | | | TESTS | | | [...] [place] | [address] | [place], [place] | | | KIERRA POINT OF CARE | [address] | [address] | | | TESTS | | | | + + + + + X-RAY PORTABLE CHEST 1 VIEW (06/16/2018 4:29 PM PDT) + + | Specimen | + + | | + + + + + | Narrative | Performed At | + + + | EXAM: OR CHEST 1 VIEW HISTORY: PICC placement. Prosthetic [...] Note | + + | Service Account, [employer] - 06/16/2018 4:44 PM PDT EXAM: OR CHEST 1 | | VIEW HISTORY: PICC [...] necessary, edited the report. I agree with [facility] report as now presented. 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 A pause verifies | | | correct patient, procedure, equipment, user support specialist and site/side | | | [...] | area Basilic vein. Catheter lot number: [id number] with a length of 55 | | [...] - BERNA[facility] | [address] | [place], [place] | | | KIERRA POINT OF CARE | [address] | [address] | | | TESTS | | | [...] [facility] | [address] | [place] [address] | | | SERVICES, CORE | PARK [...] | | | LABORATORY | | | GUATEMALAN | | | SERVICES, | | | [...] | + + + + + | [facility] | [address] | [place] [address] | | | SERVICES, KAREEM | MARY [...] (H) | 70 - 99 mg/dL | [facility] - | | | GLUCOSE, | [...] [place] | [address] | [place], [place] | | | OPHELIA LOZADA OF FUAD | [facility] | [address] | | | TESTS | | | [...] [place] | [address] | [place], [place] | | | OPHELIA LOZADA OF FUAD | [address] | [address] | | | TESTS | | | [...] | [place], [place] | | | [facility] | [facility] | [address] | | | TESTS | | | [...] | + + + + + | [facility] | [address] | [place] [address] | | | SERVICES, CORE | MARY [...] | | | LABORATORY | | | GUATEMALAN | | | SERVICES, | | | [...] | + + + + + | [facility] | [address] | [place] [address] | | | SERVICES, CORE | PARK [...] | + + + + + | [facility] | [address] | [place] [address] | | | SERVICES, CORE | PARK [...] [facility] | [address] | [place] [address] | | | KAREEM FINCH | MARY [...] | [address] | [place] [address] | | | SERVICES, CORE | PARK [...] | + + + + + | [facility] | [address] | [place] [address] | | | SERVICES, CORE | MARY [...] - DARSHANA | [address] | [place], [place] | | | [facility] | [address] | [address] | | | TESTS | | | [...] | | | LABORATORY | | | GUATEMALAN | | | SERVICES, | | | [...] is appropriate. | LABORATORY | | Page [phone] or call [phone] with questions. Thank you. GFR is | [...] | + + + + + | [facility] | [address] | [place] [address] | | | SERVICES, CORE | PARK [...] | + + + + + | [facility] | [address] | [place] [address] | | | SERVICES, CORE | PARK [...] is appropriate. | LABORATORY | | Page [phone] or call [phone] with questions. Thank you. | SERVICES, CORE | + + + + + + + + | Performing | Address | City/State/Zipcode | Phone Number | | Organization | | | | + + + + + | [facility] | [address] | [place] [address] | | | SERVICES, CORE | MARY [...] (H) | 70 - 99 mg/dL | [facility] - | | | GLUCOSE, | [...] [place] | [address] | [place], [place] | | | OPHELIA LOZADA OF CARE | [address] | [address] | | | TESTS | | | [...] [place] | [address] | [place], [place] | | | OPHELIA LOZADA OF CARE | [address] | [address] | | | TESTS | | | [...] [facility] | [address] | [place] [address] | | | SERVICES, CORE | PARK [...] | | | LABORATORY | | | GUATEMALAN | | | SERVICES, | | | [...] | + + + + + | [facility] | [address] | [place] [address] | | | SERVICES, CORE | PARK [...] [place] | [address] | [place], [place] | | | OPHELIA LOZADA OF FUAD | [facility] | [address] | | | TESTS | | | [...] BERNAAM | [address] | [place], [place] | | | OPHELIA LOZADA OF CARE | [facility] | [address] | | | TESTS | | | [...] (H) | 70 - 99 mg/dL | [facility] - | | | GLUCOSE, | [...] [place] | [address] | [place], [place] | | | OPHELIA LOZADA OF CARE | [address] | [address] | | | TESTS | | | [...] + + | ECG | Borderline prolonged [place] | | [facility] | | | [...] DEPT OF | [address] | [place], [place] | | | CARDIOLOGY | [address] | [address] | | + + + + + [...] + + + | [facility] | [address] | [place], [place] | | | KIERRA POINT OF CARE | [address] | [address] | | | TESTS | | | [...] | + + + + + | [facility] | [address] | [place] [address] | | | SERVICES, CORE | PARK [...] | | | LABORATORY | | | GUATEMALAN | | | SERVICES, | | | [...] | + + + + + | [facility] | [address] | [place] [address] | | | SERVICES, CORE | [address] | | | + + + + + MAGNESIUM, PLASMA (06/12/2018 10:24 PM PDT) + +-------+ + + + | Component | Value | Ref Range | Performed | Pathologist | | | | | At | Signature | + +-------+ + + + | MAGNESIUM,P | 1.8 | 1.6 - 2.6 mg/dL | [facility] | | | LASMA | | | [...] [facility] | [address] | [place] [address] | | | SERVICES, KAREEM | MARY [...] | | | LABORATORY | | | GU[place]AN | | | SERVICES, | | | [...] the MDRD equation recommended by the | [facility] | | National Kidney Disease Education Program. [...] | [address] | [place] [address] | | | SERVICES, CORE | MARY [...] | + + + + + | [facility] | [address] | [place] [address] | | | SERVICES, | [address] [...] | [address] | [place] [address] | | | SERVICES, | [address] [...] | [address] | [place] [address] | | | SERVICES, CORE | PARK [...] [facility] | [address] | [place] [address] | | | SERVICES, | [address] [...] | + + + + + | [facility] | [address] | [place] [address] | | | KAREEM FINCH | MARY [...] | | KIERRA POINT OF CARE | [address] | [address] | | | TESTS | | | [...] | | | LABORATORY | | | GU[place]ALAN | | | SERVICES, | | | [...] [facility] | [address] | [place] [address] | | | SERVICES, CORE | PARK [...] | + + + + + | [facility] | [address] | [place] [address] | | | SERVICES, KAREEM | PARK [...] [facility] | [address] [facility] | [place], [place] | | | [facility] | [address] | [address] | | | TESTS | | | | + + + + + PROCEDURE NOTE (06/12/2018 2:57 PM PDT) + + + | Narrative | Performed At | + + + | Ghassan Sherman MD 06/17/2018 2:15 PM Date of Service: | | | 08/01/2015 Attending Surgeon: Ghassan Sherman MD | | | Environmental Health Physician(s): mesfin thompson MD Preoperative Diagnosis: 1. 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 Postoperative Diagnosis: | | | same Procedures Performed: 1. Right knee arthrotomy with | | | drainage for infection and polyethylene exchange 2. Application | | | TINO disposible negative pressure wound therapy dressing right knee | | | 21o29px Anesthesia: General endotracheal anesthesia. | | | Implants: excahgned alisha triathalon poly size 15, 13mm EBL: 50 | | | Complications: None Specimens: 6 cultures, 1 path Indication | | | For Procedure: Solo Alves was transferred to [facility] for sepsis | | | after [...] | | stands. Ghassan Sherman MD, MPH Sales Marketing Coordinator, Dept. of | | | Orthopaedics [facility] [address] | | | Maricel Gibson. [address] [place] [id number] | | | [email or web address] | | + + + CAPILLARY BLOOD GLUCOSE (NO CHG), POC (06/12/2018 2:42 PM PDT) + +---------+ + + + | Component | Value | Ref Range | Performed | Pathologist | | | | | At | Signature | + +---------+ + + + | BLOOD | 134 (H) | 70 - 99 mg/dL | [facility] - | | | GLUCOSE, | [...] [place] | [address] | [place], [place] | | | OPHELIA LOZADA OF CARE | [address] | [address] | | | TESTS | | | [...] | | OPHELIA LOZADA OF FUAD | [address] | [address] | | | TESTS | | | [...] Propionibacterium due to growth of other | [facility] | | organsims. Gram Stain: No squamous epithelial cells Moderate | | | polymorphonuclear cells No organisms seen | | + + + + + + + + | Performing | Address | City/State/Zipcode | Phone Number | | Organization | | | | + + + + + | [facility] | [address] | [place] [address] | | | [place] | | | [...] - | | | | | | [facility] | | + + + [...] Propionibacterium due to growth of other | [place] | | organsims. Gram Stain: No squamous epithelial cells No | | | polymorphonuclear cells No organisms seen | | + + + + + + + + | Performing | Address | City/State/Zipcode | Phone Number | | Organization | | | | + + + + + | [facility] | [address] | [place] [address] | | | [place] | | | [...] | | | | | | [place] | | + + + + + [...] + | [facility] | [address] | [place] [address] | | | [place] | | | | + + + [...] - | | | | | | [facility] | | + + + [...] + + + + + | [facility] - | [address] | [place] [address] | | | [place] | | | | + + + [...] | + + + + + | [facility] - | [address] | [place] [address] | | | [place] | | | | + + + [...] | | | | | | number [phone]. Knee, | | | | | | [...] | + + + + + | [facility] | [address] | [place] [address] | | | PATHOLOGY | [address] [...] + + + + + | [facility] - | [address] | [place] [address] | | | [place] | | | | + + + [...] + + + + + | [facility] | [address] | [place], [place] | | | OPHELIA LOZADA OF CARE | [address] | [address] | | | TESTS | | | [...] [facility] | [address] | [place], [place] | | | KIERRA POINT OF CARE | [address] | [address] | | | TESTS | | | [...] + + | [facility] [place] | [address] [facility] [address] | [place], [place] | | | [facility] | [address] | [address] | | | TESTS | | | [...] [facility] | [address] | [place] [address] | | | SERVICES, KAREEM | PARK [...] | + + + + + | [facility] | [address] | [place] [address] | | | SERVICES, CORE | MARY [...] | + + + + + | [facility] | [address] | [place] [address] | | | SERVICES, CORE | MARY [...] [facility] | [address] | [place] [address] | | | SERVICES, CORE | PARK [...] | + + + + + | [facility] | [address] | [place] [address] | | | SERVICES, | [address] [...] | + + + + + | [facility] | [address] [facility] | [place] [address] | | | SERVICES, CORE | MARY [...] | | | LABORATORY | | | [place]AN | | | SERVICES, | | | [...] | + + + + + | [facility] | [address] [facility] | [place] [address] | | | SERVICES, CORE | MARY [...] | + + + + + | [facility] | [address] [facility] | [place] [address] | | | KAREEM FINCH | MARY [...] | + + + + + | [facility] | [address] | [place] [address] | | | SERVICES, KAREEM | MARY [...] | + + + + + | [facility] | [address] | [place] [address] | | | SERVICES, CORE | PARK [...] | + + + + + | [facility] | [address] | [place] [address] | | | SERVICES, CORE | [address] | | | + + + + + ED INFORMATION EXCHANGE (06/11/2018 6:04 PM PDT) + + | Specimen | + + | | + + + + + | Narrative | Performed At | + + + | [id number] This patient has registered at the [place] | [facility] | | [facility] Emergency Department For more | MEDICAL | | information visit: | TECH[employer]OLOGIES | | [email or web address] | | | 35ffec Security Events No [...] Complaint Aug | | | 2017 [facility] [place] Emergency | | | Emergency 10,800. REF Recent Inpatient Visit | | | Summary No recorded inpatient visits. E.D. Visit Count (12 mo.) | | | Facility Visits [facility] 1 Total 1 | | [...] | | facilities for additional information. 2018 [employer] | | | [facility] - [place], [place] - | | | [email or web address] | | + + + + + | Procedure Note | + + | Service Account, Rtf Results Inbound - 06/11/2018 6:06 PM PDT Formatting of this | | note might be different from the original.DANIEL?NOTIFICATION?06/11/2018 18:04?MAXWELL, | | JÚNIOR? patient has registered at the [facility] | | [place] Emergency Department For more information visit: | | [email or web address] | | EventsNo recent Security Events currently on fileED Care GuidelinesThere are currently | | no ED Care Guidelines in DANIEL for this patient. Please check your facility's medical | | records system.Recent Emergency Department Visit SummaryAdmit Date Facility [facility] | | Type Major Type Diagnoses or Chief Complaint Jun 11, 2018 [facility] | | [facility] [place] Emergency Emergency 10,800. REF Recent Inpatient Visit | | SummaryNo recorded inpatient visits. E.D. Visit Count (12 mo.)Facility Visits [place] | | [facility] 1 Total 1 Note: Visits indicate [...] aforementioned facilities for additional information. ? 2018 [employer] | | [facility] - [place], [place] - [email or web address] | |Facility Visits | |[facility] 1 | |Total 1 | [...] facilities for additional information. | |? 2018 [employer] 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
--- OUTSIDE RECORDS SUMMARY | ~2020-08-01 | XMS | Encounter Summary ---
Demographics + + + | Address | [address] | | | [place] [address] | + + + | Home Phone [...] Providers + +------+ + | Care Dental Tech Name | Role | Phone | [...] | | | | and | | [address] | | | | | inflammatory | | [place] [address] | | | | | reaction | | [address] [place], | | | | | due to | | [place] | | | | | internal | | [address] | | | | | right knee | | Phone: | | | | | prosthesis, | | [phone] | | | | | initial | | Fax: | | | | | encounter | | [phone] | +--------+--------+ + + + + Encounter [...] | | | [address] | [facility] | joint, subsequent | | | | Loop Physician's | [place], [place] | encounter (Primary | | | | [place], 3rd floor | [address] | Dx); halfway | | | | [place], [place] | [phone] | (current) use of | | | | [address] | | antibiotics | | | | [phone] | | | +--------+---------+ + + + [...] ), Disp: 30 tablet, Rfl: 0 antiox. no.27-[id number]-aec-gih (I-CAPS) 280-10-2 mg oral capsule, Take 1 [...] Pt has no other follow-up needed at [facility] at this time so will contact his PCP to see if continued prescribing of cephalexin can be managed locally Abril Shields MD Infectious Diseases documented in this encounter Plan of Treatment Not on filedocumented as of this encounter Visit Diagnoses + + | Diagnosis | + + | Infection of prosthetic knee joint, subsequent encounter - Primary | + + | halfway (current) use of antibiotics | + + documented in this encounter"
[~2020-08-01 12:01] MED LIST changes: +ASPIRIN81 MG PO; +ATORVASTATIN CA20 MG PO; +ENTRESTO 24 MG1 EACH PO; +GLIPIZIDE5 MG PO; +HYDROXYCHLOROQ200 MG PO; +METOPROLOL SUCC50 MG PO
[2020-08-01] MEDS ORDERED: LEVOFLOXACIN250 MG PO (12:02)
[2020-08-01] MEDS ORDERED: WARFARIN SODIUM1 MG PO (12:03)
[2020-08-01] MEDS ORDERED: CARVEDILOL3.125 MG PO (12:03)
[2020-08-01] MEDS ORDERED: TORSEMIDE5 MG PO (12:04)
[2020-08-01] MEDS ORDERED: WARFARIN SODIUM2 MG PO (13:33)
--- NOTE | 2020-08-01 14:30 | NUR ---
PATIENT ADMITTED TO SWING BED. VS STABLE. RESPIRATIONS EVEN AND UNLABORED. PATIENT RESTING IN BED. CALL LIGHT WITHIN REACH.
--- NOTE | 2020-08-01 15:21 | NUR ---
DISCHARGE INSTRUCTIONS PROVIDED TO PT IN VERBAL AND WRITTEN FORM. PT AWARE OF S/SX OF INFECTION LIFTING LIMIT AND PLAN OF CARE AFTER DISCHARE. PT VERBALIZES UNDERSATNDING. NO FURTHER QUESTIONS. ZAHEER IN TO DISCUSS MEDICATIONS. PORT DEACCESSED AND HEP LOCKED. WNL.
--- NOTE | 2020-08-01 17:52 | NUR ---
patient resting in bed. dinner ordered. coccyx pillow adjusted. stage 1 pressure ulcer noted on coccyx. covered with alevin. ice pack placed on left shoulder. left arm elevated above heart with pillows. patient states left arm feels better since left arm compression sleeve placed.
--- NOTE | 2020-08-01 18:54 | NUR ---
PATIENT ADJUSTED BACK IN BED. PATIENT STATES DINNER WAS CHOPPED "TOO FINE" AND THAT HE COUGHED ON IT MORE THAN USUAL. NO FURTHER REQUESTS. CALL LIGHT WITHIN REACH.
--- NOTE | 2020-08-01 18:55 | NUR ---
PATIENT UP TWICE TODAY TO TOILET AND CHAIR USING WALKER AND I PERSON STANDBY ASSIST. PATIENT STATES HIS MOUTH IS "FEELING BETTER" BUT STILL COMPLAINED ABOUT IT BURNING WHEN EATING SALMON FOR DINNER. NO VISITORS TODAY. PATINET CHANGED TO SWING BED STATUS. VS STABLE. RESPIRATIONS EVEN AND UNLABORED.
--- NOTE | 2020-08-01 19:35 | NUR ---
REPORT RECEIVED FROM FLY RICKS. pt RESTING IN BED AWAKE, ARM SLEEVE AND GLOVE ON LEFT ARM. pt DENIES PAIN AT THIS TIME. ARM ELEVATED ON PILLOW. pt HAS CALL LIGHT IN LAP. NO REQUESTS AT THIS TIME.
--- NOTE | 2020-08-01 19:53 | NUR ---
PHONE CALL TO , ORDERS REPEATED BACK FOR MAGIC MOUTHWASH REQUESTED BY pt.
--- NOTE | 2020-08-01 21:00 | NUR ---
V/S AND I&O TAKEN AND RECORDED. ANA/THOMAS CARE DONE.
--- NOTE | 2020-08-01 21:27 | NUR ---
pt ASSESSMENT COMPLETE. pt DENIES PAIN AT THIS TIME. THOMAS CARE COMPLETE. pt ASSISTED TO REPOSITION IN BED. MIDLINE WITH GOOD BLOOD RETURN, SL. ARM CIRCUMFERENCE 31 CM. LEFT ARM ELEVATED ON PILLOW, GLOVE AND SLEEVE IN PLACE. WATER PROVIDED. PRN MOUTHWASH PROVIDED. pt REQUESTING PRN BOWEL CARE MEDICATION FOR MORNING. FLY PAINTER IN ROOM VISITING WITH pt. CALL LIGHT IN LAP. NO ADDITIONAL REQUESTS.
--- NOTE | 2020-08-01 23:40 | NUR ---
CHECKED ON pt. RESTING IN BED WITH EYES CLOSED, BREATHING UNLABORED. HR 95 ON TELE 7.
--- NOTE | 2020-08-02 00:11 | NUR ---
CALL LIGHT ANSWERED. pt C/O FEELING URGE TO VOID. THOMAS NOTED TO BE AIR LOCKED, NOW DRAINING WNL. pt ASSISTED TO REPOSITION IN BED. NO ADDITIONAL REQUESTS. CALL LIGHT IN REACH.
--- NOTE | 2020-08-02 03:17 | NUR ---
pt AWAKENS TO VOICE FOR MEDICATION ADMINISTRATION. THOMAS DRAINING YELLOW URINE. DRINKS OF WATER WITH MEDICATION. NO ADDITIONAL REQUESTS. CALL LIGHT IN REACH.
--- NOTE | 2020-08-02 05:02 | NUR ---
pt HAS APPEARED TO REST WELL THROUGHOUT SHIFT. THOMAS AIR LOCKED THIS SHIFT, OTHERWISE DRAINING QS OUTPUT. USES CALL LIGHT APPROPRIATELY, ALERT AND ORIENTED. DAILY WEIGHT. COMPRESSION SLEEVE AND GLOVE ON LEFT ARM, ARM ELEVATED THROUGHOUT SHIFT. MIDLINE WITH GOOD BLOOD RETURN, SL.
--- NOTE | 2020-08-02 06:55 | NUR ---
THOMAS BAG CONTINUES TO AIR LOCK, NEW DRAIN BAG PLACED. DRAINING WNL. SBA W FWW FOR DAILY WEIGHT, STANDING 78.4 KG. pt C/O 5-6/10 PAIN IN LEFT KNEE. ICE PACK PLACED, PRN PAIN MEDICATION ADMINISTERED. pt RESTING IN BED. CALL LIGHT IN REACH.
--- NOTE | 2020-08-02 08:30 | NUR ---
PT IS AWAKE IN GOOD SPIRITS, SITTING UP ON EDGE OF BED, STATES TYLENOL HAS HELPED WITH KNEE PAIN, HAS NOT ORDERED BREAKFAST YET, CALL LIGHT IN EASY REACH.
--- NOTE | 2020-08-02 09:30 | NUR ---
PT HAS ORDERED BREAKFAST, SCHEDULED MEDS GIVEN, GOING FOR WALK IN HALLWAY WITH PT, IN GOOD SPIRITS. DENIES ANY NEEDS.
--- NOTE | 2020-08-02 09:38 | NUR ---
PATIENT AMBULATING HALLS WITH P/T. LINENS CHANGED, SIDETABLE CLEANED UP
--- NOTE | 2020-08-02 09:47 | NUR ---
VITALS AND I&OS CHARTED. THOMAS EMPTIED. O/T MAXINE IN NOW. PILLOWCASE ON PATIENTS CUSHION(USED FOR BUTTOCKS) IT IT SOILED, PLAN TO SCRUB IT TODAY AT SOME POINT BUT PATIENT STATES IT'S THE ONLY THING HE CAN SIT ON FOR COMFORT. SITTING ON SIDE OF BED WITH THERAPY. CALL LIGHT IN REACH
--- NOTE | 2020-08-02 13:03 | NUR ---
PATIENT IN GOOD SPIRITS THIS MORNING. STATES HE DIDN'T LIKE THE PUREED OMELET OR THE CHOPPED OMELET THIS MORNING. HE STATES HE NEEDS HIS OMELETS "SOFT AND FLUFFY," OPPOSED TO BROWNED EVEN A LITTLE BIT. ITS EASIER FOR HIM TO SWALLOW IF ITS "SOFT AND FLUFFY." PATIENT STATES HE CAN EAT A HAMBURGER FINE. HIS DIET ORDER WAS CHANGED TO PUREED, 60 GRAM CONSISTENT CARB, 2 GRAM NA+ BUT ALSO SAID "CAN HAVE SOME FINELY MINCED." I TOOK HIS FOOD PREFERENCES AND LUNCH ORDER. TALKED TO HIS NURSE, HEIDI, AND SHE SAID SHE WILL CHANGE HIS DIET ORDER TO SOFT WITH DIABETIC AND SODIUM RESTRICTIONS. WILL CONTINUE TO FOLLOW.
--- NOTE | 2020-08-02 13:19 | NUR ---
PT ALERT, ORIENTED AND SITTING UP EATING LUNCH. PT EXCITED TO HAVE BREAD FOR LUNCH. PT IS PLEASANT, JOKING AND SEEMS TO BE ENJOYING COMPANY. GAVE BLESSING.PT REQUESTED RN,WAS ABLE TO CONNECT WITH FLY BEGUM TO ASSIST PT. WILL FOLLOW NEEDED
--- NOTE | 2020-08-02 14:42 | NUR ---
PT IS TAKING NAP ON BED, RESP EVEN AND UNLABORED, CALL LIGHT IN EASY REACH.
--- NOTE | 2020-08-02 16:47 | NUR ---
Patient following TC plan. Happy he can work with PT and stay at the hospital.
--- NOTE | 2020-08-02 17:38 | NUR ---
PATIENT UP IN BED EATING DINNER, IS&OS CHARTED, GARBAGE EMPTIED.
--- NOTE | 2020-08-02 17:54 | NUR ---
PT ATE 50% OF SALMON BUT DOES NOT WANT REST OF TRAY, REQUESTING CHOCOLATE PUDDING. WATCHING BASEBALL GAME. CALL LIGHT IN EASY REACH.
--- NOTE | 2020-08-02 19:25 | NUR ---
SHIFT REPORT RECEIVED FROM WILLIAMLAMIGUEL GORDON AT BEDSIDE. PT AWAKE AND RESTING IN BED. THOMAS CATHETER PATENT AND DRAINING WELL. NO NEEDS VERBALIZED AT THIS TIME, CALL LIGHT IN REACH.
--- NOTE | 2020-08-02 22:00 | NUR ---
TOOK PT VITALS, I&Os IN, WATER REFILLED, RN IN FOR MEDS AND ASSESMENT, NO FURTHER REQUESTS FOR ME AT THIS TIME INFORMED RN THE PT WAS REQUESTING "MOUTH WASH, TO HELP CLEAR AND SOOTHE MOUTH"
--- NOTE | 2020-08-02 22:00 | NUR ---
ASSESSMENT COMPLETE, SCHEDULED MEDS GIVEN (SEE EMAR). PT RESTING IN BED, BUTTOCKS FLOATED WITH PILLOW. MIDLINE FLUSHED, BRISK BLOOD RETURN NOTED. DRESSING INTACT. VSS, PT DENIES PAIN OR NAUSEA. CALL LIGHT IN REACH.
--- NOTE | 2020-08-02 23:57 | NUR ---
SEE RN NOTE REGARDING PRN MAALOX (IN EMAR). GIVEN FOR PAIN R/T MOUTH SORES. NO ADDITIOANL NEEDS VERBALIZED, CALL LIGHT IN REACH.
--- NOTE | 2020-08-03 01:25 | NUR ---
PT RESTING IN BED WITH EYES CLOSED, RESPIRATIONS EVEN AND UNLABORED. NO DISTRESS NOTED. CALL LIGHT IN EASY REACH.
--- NOTE | 2020-08-03 02:35 | NUR ---
SCHEDULED MEDICATION GIVEN (SEE EMAR). PT AWOKE EASILY TO VOICE AND IS COMPLIANT WITH CARE. MIDLINE DRESSING REMAINS WNL, COMPRESSION SLEEVE IN PLACE FOR EDEMA MANAGEMENT. NO ADDITIONAL NEEDS, CALL LIGHT IN REACH.
--- NOTE | 2020-08-03 07:41 | NUR ---
0700: Report received from Dilcia BILL. Pt resting in his bed with his call montes within reach and no needs at this time.
--- NOTE | 2020-08-03 08:50 | NUR ---
Attended MDT meeting this a.m., pt states that he is happy with his care and feels like therapy members are listening to his desires, and are creating a plan to help him with his goals. Pt verbalizes willingness to engage in therapies, and has stated that he also wants his to be involved in the eduction he receives regarding diet and blood sugar levels related to his diabetes. Nutrionist was in the room, and explained to Mr Mas that she would be happy to consult with him, and his regarding his diet and nutrition.
--- NOTE | 2020-08-03 08:50 | NUR ---
Discussed in IDT and therpist discussed his goals with him. He is wanting to work to improve deconditioning. will bring in clothing, walker, and shoes. Pt is aware he needs to dress in street clothes and be up for meals while on TC.
--- NOTE | 2020-08-03 09:37 | NUR ---
IN IDT MEETING THIS MORNING, PATIENT EXPRESSED CONCERN THAT HE WANTS ME TO MEET WITH HIS AND HIM TO FIGURE OUT A DIET PLAN FOR HOME. HE MISSES SALT BUT KNOWS WE HAVE TO WATCH HIS SODIUM CONSUMPTION HERE. HE IS ALSO A DIABETIC AND DOESN'T WANT TO HAVE LOW BLOOD SUGAR AT HOME. I CALLED FATUMA AND ASKED IF SHE WAS COMING IN TODAY. SHE SAID SHE WILL TRY SHE IS BUSY JESICA AT HOME. I WILL STOP BY LATER TO SEE IF SHE IS HERE AND WE CAN DISCUSS FOOD, BLOOD SUGAR MANAGEMENT, ETC. FOR HOME. IF THIS CONVERSATION DOESN'T HAPPEN TODAY, WE CAN DO IT ANOTHER DAY. PATIENT'S OMELET LOOKED FLUFFIER THIS MORNING BUT IT DOESN'T STAY SOFT IT SITS. HE DIDN'T THINK HE COULD FINISH ALL OF IT BUT HE WILL DO HIS BEST.
--- NOTE | 2020-08-03 09:48 | NUR ---
PT RESTING IN HIS BED AND STATES HE HAS SOME SLIGHT PAIN IN HIS FEET AND KNEES WHICH HE STATES IS HIS NEUROPATHY AND GOUT WHICH HE STATES IS A 2/10 AND ACCEPTABLE AT THIS TIME. HE DENIES ANY SORENESS IN HIS THROAT AT THIS TIME. THE DRESSING TO HIS COCCYX IS IN PLACE AND HE IS SITTING ON A FOAM PAD. HIS LEFT ARM PRESSURE SLEEVE REMAINS IN PLACE WITH +2 EDEMA NOTED WHICH HE STATES IS IMPROVING. SEE ASSESSMENT.
--- NOTE | 2020-08-03 11:09 | NUR ---
PT STATES HE IS HAVING SOME FOOT AND KNEE PAIN BUT DECLINED THE NEED FOR ANYTHING FOR IT. HE COMPLAINS OF SOME MOUTH SORENESS AND WAS MEDICATED ORDERED, SEE EMAR. PT WORKING WITH OT AT THIS TIME.
--- NOTE | 2020-08-03 11:38 | NUR ---
FOAM DRESSING CAME OFF WHILE THE PT WAS WORKING WITH OT. HIS COCCYX AREA IS RED BUT IS CLOSED. THE SITE WAS CLEANED AND ANOTHER FOAM DRESSING WAS PLACED. PT REPOSITIONED AT THIS TIME.
--- NOTE | 2020-08-03 11:53 | NUR ---
PT SLEEPING AT THIS TIME. CALL MENDEZ WITHIN REACH.
--- NOTE | 2020-08-03 16:02 | NUR ---
Pt assisted to his chair where he is now sitting and is speaking with his visitor. He denies any complaints or needs at this time. Call montes within reach.
--- NOTE | 2020-08-03 18:37 | NUR ---
Pt sleeping at this time, call montes within reach.
--- NOTE | 2020-08-03 19:15 | NUR ---
SHIFT REPORT RECEIVED FROM DAYSHIFT FLY SOLIS AT BEDSIDE. PT RESTING QUIETLY IN BED WITH EYES CLOSED. RR EVEN AND UNLABORED. NO DISTRESS NOTED, CALL LIGHT IN REACH.
--- NOTE | 2020-08-03 21:45 | NUR ---
CAME IN WITH RN TO TAKE VITALS AND I&Os, EMPTIED THOMAS CATH, RN PROVIDING PM MEDS, PT GOT PILL STUCK, AIRWAY REMAINED CLEAR, PT STATES 'THIS IS COMMON' RN AND SELF STOOD BY, PROVIDED PT WITH APPLESUACE FOR A METHOD OF CLEARING PILL, PT WAS ABLE TO SWALLOW THE PILL, CALLED TO ASST ANOTHER PT, RN IN TO WRAP OF CARE,
--- NOTE | 2020-08-03 22:00 | NUR ---
ASSESSMENT COMPLETE, SCHEDULED MEDS GIVEN (SEE EMAR). HOB ELEVATED AND MEDS GIVEN ONE AT A TIME, PT REPORTS SECOND PILL "DIDN'T GO DOWN ALL THE WAY". APPLESAUCE AND PUDDING PROVIDED ALONG WITH WARM WATER, NO RESULT. AIRMWAY MAINTAINED, PT ABLE TO BREATH WITHOUT ISSUE OR COMPROMISE. PT STATES, "IT HAPPENS FROM TIME TO TIME". PT ASSISTED BACK TO BED, HOB REMAINS ELEVATED. WILL MONITOR, PT STATES, "IT HAPPENED EARLIER TODAY AND THAT'S WHY I DIDN'T EAT VERY MUCH DINNER". WILLIAM PATENT, VSS. PT DENIES PAIN AND NAUSEA. NO ADDITIONAL NEEDS. WILL MONITOR, CALL LIGHT IN REACH.
--- NOTE | 2020-08-03 22:42 | NUR ---
PT CALLED TO GET READY FOR BED, AJD PT'S PILLOWS AND CUSHIONAS NEEDED, PT HAS BLANKETS UP AND AND CALL LIGHT IN PLACE, NO FURTHER REQUESTS AT THIS TIME
--- NOTE | 2020-08-03 22:45 | NUR ---
ROUNDED ON PT, PT AWAKE AND RESTING IN BED. REPORTS PILL WENT DOWN AND SWALLOWING ISSUE HAS RESOLVED. RESIDENTIAL CAREGIVER LARRY ASSISTING PT FOR BED, NO ADDITIONAL NEEDS VERBALIZED. CALL LIGHT IN REACH.
--- NOTE | 2020-08-03 23:30 | NUR ---
SCHEDULED BP MEDICATION GIVEN (SEE EMAR). VSS, NO DISTRESS NOTED. PT DENIES SOB. RT ORA IN ROOM FOR PREOP EKG. ASSESSMENT ALSO COMPLETE, DENIES PAIN AND NAUSEA. GAUZE DRESSING TO ABD INTACT, SOME SHADOWING NOTED, SEROSANGUINEOUS IN COLOR, NOT YET FULLY SATURATED. WILL MONITOR. PT MADE NPO AT THIS TIME PER MD ORDERS. IV FLUIDS AND IV ABX INFUSING, SITES X2 WNL. NO ADDITIOANL NEEDS, CALL LIGHT INR EACH. BED ALARM ON.
--- NOTE | 2020-08-04 00:46 | NUR ---
PT RESTING IN BED, EYES CLOSED. RR EVEN AND UNLABORED. NO DISTRESS NOTED. CALL LIGHT IN REACH.
--- NOTE | 2020-08-04 02:24 | NUR ---
scheduled antiviral medication given (see emar). per bill from [employer], okay to open capsule for ease of administration. no issue with swallowing, pt reports generalied discomfort with oral sores. will monitor. no further needs, call light inr each.
--- NOTE | 2020-08-04 04:51 | NUR ---
PT RESTING IN BED WITH EYES CLOSED, RR EVEN AND UNLABORED. NO DISTRESS NOTED. PT APPEARS RELAXED AT THIS TIME, CALL LIGHT REMAINS IN EASY REACH.
--- NOTE | 2020-08-04 07:44 | NUR ---
0728: Report received from Dilcia BILL. Pt denies any new problems or concerns at this time. Call montes within reach.
--- NOTE | 2020-08-04 08:22 | NUR ---
Pt sitting up and he states he continues to have trouble swallowing which is baseline for him. He is sitting up very high and is tucking his chin when he swallows as he is eating breakfast at this time. See assessment.
--- NOTE | 2020-08-04 10:29 | NUR ---
WILLIAM LEYVA ORDERED, PT TOLERATED WELL. PT RESTING IN HIS BED AND STATES HE IS TIRED FOLLOWING HAVE HAD RECENT THERAPY. HE DENIES ANY OTHER PROBLEMS AT THIS TIME.
--- NOTE | 2020-08-04 10:35 | NUR ---
PT AMBULATING IN HALLWAY WITH Roberto CARLIN USING FWW. PT WORKING HARD, GAVE ENCOURAGEMENT, PT THANKED ME. WILL CONTINUE TO FOLLOW
--- NOTE | 2020-08-04 11:21 | NUR ---
PT WORKING WITH OT AT THIS TIME.
--- NOTE | 2020-08-04 14:03 | NUR ---
Duane was assisted to the BR by the BUSINESS OBJECTS ANALYST and he voided which it was unmeasured. A hat was placed in the toilet to catch the next void. Will continue to monitor.
--- NOTE | 2020-08-04 15:38 | NUR ---
PATIENT SLEEPING THIS AFTERNOON. NOT VISITING AT THIS TIME. WILL FOLLOW-UP WITH PATIENT NEXT WEEK REGARDING DIET PLAN FOR HOME.
--- NOTE | 2020-08-04 16:46 | NUR ---
Pt watching the news with no needs at this time.
--- NOTE | 2020-08-04 19:09 | NUR ---
AFTER DINNER THE PATIENT WANTED TO CHANGE OUT OF HIS JEANS AND PUT HIS PAJAMA BOTTOMS ON. NO HE DIDN'T WANT TO TAKE A SHOWER TODAY BUT MAYBE TOMORROW.
--- NOTE | 2020-08-04 20:00 | NUR ---
CALL LIGHT ANSWERED. PT UP TO TOILET TO VOID WITH SBA AND FWW. PT VOIDED 275ML CLEAR YELLOW URINE WITH NO PROBLEMS.
--- NOTE | 2020-08-04 20:48 | NUR ---
ASSESSMENT COMPLETE AND EVENING MEDS ADMINISTERED. PT HAD TROUBLE SWALLOWING CAPSULES AND REQUESTED THAT CAPSULES BE OPENED AND PUT IN APPLESAUCE. PT WAS SITTING AT EDGE OF BED FOR MED ADMINISTRATION. VSS. NO FURTHER NEEDS AT THIS TIME. CALL LIGHT WITHIN REACH.
--- NOTE | 2020-08-04 21:08 | NUR ---
STERILE SUPPLY TECHNICIAN ROUNDING NOTE. PT'S PRIMARY RN AT BEDSIDE. PT DENIES QUESTIONS, CONCERNS, OR NEEDS. WHITE BOARD UPDATED. CALL LIGHT IN REACH.
--- NOTE | 2020-08-05 00:22 | NUR ---
CALL LIGHT ANSWERED. PT REQUESTS TO BE REPOSITIONED IN BED. CALL LIGHT WITHIN REACH.
--- NOTE | 2020-08-05 02:50 | NUR ---
IN ROOM TO ADMINISTER 2AM MEDS. PT REQUESTS TO USE TOILET; UP TO TOILET WITH FWW AND SBA. PT RETURNED TO BED. PT DENIES FURTHER NEEDS AT THIS TIME.
--- NOTE | 2020-08-05 06:12 | NUR ---
PT SLEPT WELL THIS SHIFT ALTHOUGH DID HAVE TROUBLE SWALLOWING WATER OR PILLS. PILLS WERE OK FOR PATIENT MIXED IN APPLESAUCE.PT MAKING GOOD PROGRESS WITH GETTING IN AND OUT OF BED AND USING FWW WITH SBA. PT PERFORMED ORAL CARE AT SINK BEFORE BED. VSS.
--- NOTE | 2020-08-05 07:48 | NUR ---
0715: Report received from Jairo BILL. Pt resting in his bed call montes within reach.
--- NOTE | 2020-08-05 09:10 | NUR ---
PT SITTING UP EATING HIS BREAKFAST AND DENIES ANY PAIN OR NEW PROBLEMS. HE STATES HE FEELS THAT HE IS GETTING STRONGER. CALL MENDEZ WITHIN REACH. SEE ASSESSMENT.
--- NOTE | 2020-08-05 10:51 | NUR ---
Pt now resting in his bed with no new complaints. Call montes within reach.
--- NOTE | 2020-08-05 10:58 | NUR ---
Caitlyn-care done at this time.
--- NOTE | 2020-08-05 14:04 | NUR ---
PT WATCHING TV AT THIS TIME AND HE DENIES ANY PROBLEMS. HE STATES THAT HE WILL GO FOR A WALK HERE SHORTLY. MIDLINE DRESSING CHANGED PER PROTOCOL, SITE REMAINS HEALTHY.
--- NOTE | 2020-08-05 14:41 | NUR ---
PT SLEEPING AT THIS TIME.
--- NOTE | 2020-08-05 15:10 | NUR ---
PATIENT AND I WALKED ONE LAP AROUND MED SURG. PATIENT WAS USING HIS WALKER AND HAD A GAIT BELT ON.
--- NOTE | 2020-08-05 15:12 | NUR ---
PATIENT REFUSED SHOWER YESTERDAY AND TODAY HE SAID THERE IS ALWAYS TOMORROW. I DID SET UP HIS SHOWER.
--- NOTE | 2020-08-05 16:19 | NUR ---
PT RESTING IN HIS BED AND IS VISITING WITH HIS AT THIS TIME. CALL ANDREA WITHIN REACH.
--- NOTE | 2020-08-05 21:39 | NUR ---
pt up to br voided, clear yellow urine, back to bed, SBA?FWW. Coop with assessment, On Transitional care status. cbg 110, no insulin coverage needed, Coop with assessment. L arm compression sleeve and glove in place, good cms, PICC line patent. on room air, dry productive cough present when swallowing meds, meds given with applesauce, sitting edge of bed. transfers well back into bed, no c/o pain or sob.
--- NOTE | 2020-08-05 22:56 | NUR ---
uP TO EDGE OF BED, C/O UNABLE TO SWALLOW, MAGIC MOUTHWASH GIVEN
--- NOTE | 2020-08-06 00:16 | NUR ---
Resting, on room air, no distress, fluids and call light at hands reach. turns self in bed,
--- NOTE | 2020-08-06 02:29 | NUR ---
Awakes easily, no c/o pain. took meds w/o problems. COoop. on room air, call light and fluids at bedside, aspiration and fall precautions inpalce
--- NOTE | 2020-08-06 04:33 | NUR ---
Has slept this shift. Continoues on Transitional care status, On room air.moist productive cough after taking meds mixed with applesauce and in a sitting position . Walked to br, voiding QS urine, back to bed, requires help elevating elgs back to bed. Tolerates well SBA/FWW, tolerating liquids and diet well. CBG 110, no insulin coverage needed. Pleasant and coop. Daily weight 74.30kg.
--- NOTE | 2020-08-06 05:41 | NUR ---
Resting, eyes closed, no resp distress, turns self in bed. awakes easily, no c/o pain
--- NOTE | 2020-08-06 07:54 | NUR ---
PT STATES HE HAS SOME PAIN IN HIS FEET WHICH HE BELIVES IS GOUT. HE HAS A HISTORY OF NEUROPATHY AND HE ALSO STATES THERE IS SOME NUMBNESS. HE STATES THAT THE PAIN IN HIS FEET IS ACCEPTABLE AT THIS TIME AND DENIES THE NEED FOR ANYTHING AT THIS TIME. MIDLINE IS NOT ABLE TO HAVE BLOOD DRAWN BACK AND THE MD WILL BE NOTIFIED. NO OTHER CHANGES NOTED, SEE ASSESSMENT.
--- NOTE | 2020-08-06 08:57 | NUR ---
DISCUSSED WITH IN AM STAFF MEETING/REPORT THAT PT EDEMA ON LEFT ARM WHICH ALSO HAS MIDLINE IS BEING TREATED BY PHYSICAL THERAPY AND THEY WOULD BE ABLE TO TAPE AND TREAT BETTER IF MIDLINE NOT IN PLACE, ALSO MIDLINE DOES NOT HAVE BLOOD RETURN AT THIS TIME. AND IS NO LONGER USED FOR MEDCIAL TREATMENT. VERBALIZED OK TO D/C AT THIS TIME.
--- NOTE | 2020-08-06 10:43 | NUR ---
Pt ambulating in the halls with physical therapy at this time.
--- NOTE | 2020-08-06 11:44 | NUR ---
Pt complains of having trouble swallowing which has been chronic for him. He also complains of pain in his feet which he states he belives is gout. Dr Krishna notified of the pt's complaints.
--- NOTE | 2020-08-06 11:57 | NUR ---
OLD MIDLINE LEFT ARM SITE CONTINUES TO APPEAR HEALTHY WITH NO BRUISING OR BLEEDING NOTED.
--- NOTE | 2020-08-06 13:23 | NUR ---
PT UP TO BATHROOM STANDBY ASSIST WITH FWW. STEADY GAIT. PATIENT TOLERATED ACTIVITY WELL. UP TO RECLINER AFTER FOR LUNCH PRESSURE PAD PLACED IN RECLINER. PT COMPLAINT NO SALT. PT OFFERED MRS. TEJEDA SALT SUB[facility]. PATIENT SAID NO HE DOES NOT LIKE MRS. TEJEDA. HE SAID "THATS FINE, IT WILL BE FINE"
--- NOTE | 2020-08-06 13:45 | NUR ---
PT SITTING UP IN HIS CHAIR EATING HIS LUNCH AT THIS TIME. CALL ANDREA WITHIN REACH.
--- NOTE | 2020-08-06 14:10 | NUR ---
PT ASSISTED BACK TO HIS BED HE REQUESTED. HE DECLINES A WALK AT THIS TIME. PT CONTINUES TO COMPLAIN ABOUT HIS PROBLEMS WITH SWALLOWING. PT STATES THIS IS DUE TO BEING IN NEED OF A ESOPHAGEAL DILATION AND IS AN ONGOING ISSUE FOR HIM.
--- NOTE | 2020-08-06 16:25 | NUR ---
Pt resting in his bed watching tv, call montes within reach.
--- NOTE | 2020-08-06 19:17 | NUR ---
PATIENT IN BED WATCHING TV, AT BEDSIDE. CALL LIGHT IN REACH. NO FURTHER NEEDS AT THIS TIME.
--- NOTE | 2020-08-06 19:30 | NUR ---
pt awake, visiting with , no c/o pain. no requests
--- NOTE | 2020-08-06 19:30 | NUR ---
SO BEFORE DINNER PATINET AND I WALKED INTO THE BATHROOM. AFTER HE WAS DONE GOING TO THE BATHROOM. HE WANTED TO SHAVE HIS FACE. AFTER THAT I CLEANED HIS FINGER NAILS THAN HE GOT INTO THE SHOWER I HELPED HIM WASH HIS BACK AND LEGS AND WASHED HIS HAIR. AND HE DID THE REST. AFTER HIS SHOWER HE SAT UP IN HIS CHAIR FOR DINNER. PATIENT IS NOW IN BED.
--- NOTE | 2020-08-06 20:04 | NUR ---
Pt awakens easily, no c/o pain or cough noted at this time. took meds in applesauce. up sitting edge of bed, uses SBA/FWW to go to br, steady gait. COOP, bilat arm bruising healing, L arm decreased edema, sport tape in place, good cms, compression sleeve and glove off at this time. On room air, fresh fluids given and call light at hands reach
--- NOTE | 2020-08-06 20:10 | NUR ---
MANAGER IMMUNOLOGY ROUNDING NOTE. PT SITTING AT EDGE OF BED WITH PRIMARY RN PRESENT AT BEDSIDE. PT DENIES QUESTIONS, CONCERNS, OR NEEDS AT THIS TIME. CALL LIGHT IN REACH.WHITE BOARD UPDATED.
--- NOTE | 2020-08-07 00:58 | NUR ---
resting, no distress, on room air, fluids and cll ight at bedside, continous on transitional care status
--- NOTE | 2020-08-07 01:19 | NUR ---
pt called, repositioned in bed, linen straighten up, c/o itching r shoulder, scratched to his comfort. using call light and fluids. covers removed
--- NOTE | 2020-08-07 05:41 | NUR ---
PT HAS SLEPT THIS SHIFT, CONTINOUES ON SWING BED/TRANSITIONAL CARE STATUS. NO C/O PAIN OR N/V, NO C/O SWALLOWING TROUBLES THIS SHIFT. TOOK MEDS CRUSHED IN APPLESAUCE. TOLERATED WELL. UP TO BR WITH 1PA/FWW, ON ROOM AIR. TOOK SIPS OF MIRALAX AND DECLINED THE REST. IMPROVED GAIT AND STAMINE, WORKING WITH PT DECREASED EDEMA LEFT ARM, GOOD CMS, KENETIC TAPE IN PLACE.
--- NOTE | 2020-08-07 06:57 | NUR ---
Pt up to br, voided. 1PSBA/fww, tolerated well, back to edge of bed. on room air, no c/o pain.
--- NOTE | 2020-08-07 07:55 | NUR ---
PT UP SITTING ON THE EDGE OF THE BED C/O HIS THROAT "CAN'T GET ANYTHING UP CAN'T GET ANYTHING DOWN" DENIES REQUEST. APPLESAUCE PROVIDED WITH MORNING MEDS HE DENIES NEED TO CRUSH THESE 2. CALL LIGHT IN REACH
--- NOTE | 2020-08-07 08:13 | NUR ---
WHITE BOARD UPDATED. PATIENT GOT WARM WASH CLOTH AND MOVED TO CHAIR FOR BREAKFAST. WARM BLANKET, CHAPSTICK, ORAL SWABS GIVEN. CALL LIGHT WITHIN REACH. NO FURTHER NEEDS AT THIS TIME
--- NOTE | 2020-08-07 10:44 | NUR ---
PT HAS MORNNING MEAL SITTING UP ON EDGE OF BED. DENIES NEED OF PILLS TO BE CRUSHED SWALLOWS THEM WITHOUT COUGHING CHOKING OR OTHER. O/T IN TO WORK WITH PT
--- NOTE | 2020-08-07 13:40 | NUR ---
PT UP WORKING WITH P/T AT THIS TIME, IS PRESENT IN THE ROOM
--- NOTE | 2020-08-07 14:20 | NUR ---
PT SITTING IN CHAIR, ON COUCH BESIDE PT. PT SEEMS TO BE FEELING BETTER, HE IS MAKING JOKES AND HAS SOME FUN SARCASIM. PT SAYS HE IS READY FOR DC, BUT HASN'T BEEN ABLE TO EAT UNTIL TODAY. Roberto PEDRO IS WAITING TO COME IN. PT REQUESTED PRAYER. WILL FOLLOW
--- NOTE | 2020-08-07 14:27 | NUR ---
PATIENT STATES HE COULD NOT GET THE CREAM OF WHEAT DOWN THIS MORNING, BUT HE ATE ALL OF HIS TOMATO SOUP THINNED WITH MILK. HE ADDED A COUPLE OF CRACKERS AND ENJOYED THAT. HE TRIED A 1/2 ROAST BEEF SANDWICH BUT THE MEAT WAS TOO TOUGH FOR HIM SO HE COULDN'T EAT ALL OF IT. HE THINKS HE NEEDS TO HAVE HIS ESOPHAGUS DILATED AGAIN. DINNER ORDER AND BREAKFAST ORDER TAKEN. HIS IS HERE BUT SLEEPING ON THE COUCH. HE SAID SHE WILL SLEEP UNTIL 3:30-4 PM BUT I HAVE TO LEAVE AT 4 PM. HE STILL WANTS TO DISCUSS A PLAN FOR EATING AT HOME.
--- NOTE | 2020-08-07 15:58 | NUR ---
PT RESTING ON THE BED EYES CLOSED, RESTING ON THE COUCH.
--- NOTE | 2020-08-07 18:40 | NUR ---
SBA PT TO BED FROM CHAIR. REQUIRES ENCOURAGEMENT TO FUNCTION INDEPENDANTLY, HAS REQUESTED STAFF TO CLEAN HIS BOTTOM AND THINGS HE IS ABLE TO DO HIMSELF. PT RESTING NOW DENIES ANY DISCOMFORTS OR NEEDS OF
--- NOTE | 2020-08-07 23:48 | NUR ---
PATIENT CALLED AND C/O HOT. WENT IN TO THE ROOM. PATIENT WANTED ROOM TEMP 72 FROM 76. ALL COVERS/BLANKET OFF PER PATIENT'S REQUEST.
--- NOTE | 2020-08-08 00:03 | NUR ---
RESTING, EYES CLOSED, NO DISTRESS, ON ROOM AIR. CALL LIGHT AND FLUIDS AT BEDSIDE
--- NOTE | 2020-08-08 00:57 | NUR ---
RESTING, EYES CLOSED, NO RESP DISTRESS, CALL LIGHT AND FLUIDS AT BEDSIDE
--- NOTE | 2020-08-08 03:12 | NUR ---
RESTING, MED FOR INSOMNIA GIVEN EARLIER, EFFECTIVE. RESTING, ON ROOM AIR, NO RESP DISTRESS. SLEEPING ON R SIDE. ABD WOUND VAC IN PLACE, LEGS ELEVATED, CALL LIGHT AT BEDSIDE
--- NOTE | 2020-08-08 05:37 | NUR ---
Pt has slept most of this shift. Coop with procedures. on transitional care status. still requires SBA/FWW, L arm decreased edema. kinetic sport tape in place. good cms. had a bm this shift. voiding QS. no sob when up to br. tolerating diabetic diet well, fluids and call lihgt at bedside
--- NOTE | 2020-08-08 07:40 | NUR ---
pt up to the chair ready for breakfast. denies discomforts or needs of
--- NOTE | 2020-08-08 08:35 | NUR ---
Pt was discussed in am meeting with Dr. Cary and PT. PT does not feel pt is ready for dc as needs further conditioning. Pt. is tired of being in the hospital. Discussed outing and I will speak with Duane.
--- NOTE | 2020-08-08 10:00 | NUR ---
Spoke with Duane and he is very excited. 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 Called his , Beth, she will get him and take him for a ride. Out of Hospital Transitional Care form signed.
--- NOTE | 2020-08-08 10:10 | NUR ---
JÚNIOR IS IN CHAIR RESTING. REFUSED SHOWER FOR TODAY. FRESH WATER GIVEN. CALL LIGHT IN REACH. NO OTHER NEEDS AT THIS TIME.
--- NOTE | 2020-08-08 10:16 | NUR ---
PT UP IN CHAIR FINISHED WITH MORNING MEAL. WORKED COOPERATIVELY WITH O/T AGREEES HE IS MAKING PROGRESS. DENIES DISCOMFORTS OR NEEDS OF
--- NOTE | 2020-08-08 11:30 | NUR ---
arrives to take Duane on outing. Pt wanting to eat, cautioned to not eat anything to cause him to choke. states she will only let him eat soup. She will take patient for ride and they will return this afternoon.
--- NOTE | 2020-08-08 12:01 | NUR ---
PT REPORTS HE AND HIS ARE GOING OUT FOR LUNCH TODAY. HE STATES HE IS FEELING WELL AND LOOKING FORWARD TO IT
--- NOTE | 2020-08-08 14:04 | NUR ---
CHECKING ON PT, HE IS ALERT AND ORIENTED. PT STATED HE NEEDED TO TALK TO ME. PT BEGAN TO EXPLAIN THE LG HIS LIVES OUT, AND HE KNOWS HE NEEDS TO BE MORE LIKE HER. PT TOOK A LEAP OF LG TODAY AND ENTERED A NEW REALLM OF HIS PERSONAL LG JOURNEY. I AM HUMBLED AND HONORED TO SHARE IN THIS MOMENT WITH PT. GAVE PT A BIBLE, AND ENCOURAGED HIM HE IS TO HAVE AN OUTING OFFERED BY TRANSITIONAL CARE PROG WITH HIS . WILL CONTINUE TO FOLLOW
--- NOTE | 2020-08-08 14:51 | NUR ---
PT IS STILL OUT TO LUNCH WITH HIS .
--- NOTE | 2020-08-08 16:30 | NUR ---
PT IS STILL OUT WITH HIS
--- NOTE | 2020-08-08 17:15 | NUR ---
PT RETURNS FROM OUTING STATES HE HAD A WONDERFUL TIME. PT INTO GUMARO'S LAYS DOWN TO REST
--- NOTE | 2020-08-08 18:12 | NUR ---
PATIENT IS RESTING IN BED WITH EYES CLOSED. I & O WERE NOT RECORDED THIS AFTERNOON DUE TO PATIENT BEING OFF CAMPUS WITH FOR OUTTING AND DINNER. RN WAS NOTIFIED THAT WE DID NOT GET I & O. CALL LIGHT WAS IN REACH.
--- NOTE | 2020-08-08 19:44 | NUR ---
REPORT RECEIVED FROM FLY THOMAS. CALL LIGHT IN REACH, NO APPARENT NEEDS AT THIS TIME
--- NOTE | 2020-08-08 20:27 | NUR ---
PATIENT WANTING LESS COVER. 4 BLANKETS TAKEN OFF. SUGAR LESS PUDDING PROVIDED PER PATIENT'S REQUEST.
--- NOTE | 2020-08-08 21:49 | NUR ---
SCHEDULED MEDICATIONS ADMINISTERED, ASSESSMENT COMPLETE, VS AND I/O'S COMPLETE. REPOSITIONED IN BED, CALL LIGHT IN REACH. PT STATES NO PAIN. NO OTHER NEEDS AT THIS TIME. WILL CONTINUE TO MONITOR.
--- NOTE | 2020-08-08 23:06 | NUR ---
PATIENT WAS UP TO USE THE TOILET. PATIENT VOIDED 3OOML PATIENT IS BACK IN BED. CALL LIGHT IN REACH. NO OTHER NEEDS AT THIS TIME.
--- NOTE | 2020-08-08 23:28 | NUR ---
ANSWERED CALL LIGHT, PT REQUESTED PRN MOUTHWASH. ORAL CARE COMPLETE. CALL LIGHT IN REACH, NO OTHER NEEDS AT THIS TIME.
--- NOTE | 2020-08-09 03:31 | NUR ---
ROUNDED ON PATIENT, IN BED WITH EYES CLOSED, BREATHING EVEN AND UNLABORED. CALL LIGHT WITHIN REACH. WILL CONTINUE TO MONITOR.
--- NOTE | 2020-08-09 05:06 | NUR ---
PATIENT SLEPT THIS SHIFT, USED CALL LIGHT APPROPRIATELY. VSS, A+O. SBA TO BR TO VOID. ON ROOM AIR, TOLERATING WELL. EDEMA IN L ARM IMPROVED. ORAL CARE COMPLETED. PT REPORTS NO PAIN. TOLERATING DIET.
--- NOTE | 2020-08-09 07:45 | NUR ---
PATIENT SITTING UP IN BED. RN IN ROOM. WHITE BOARD UPDATED. PATIENT'S BREAKFAST ORDERED. CALL LIGHT WITHIN REACH. NO OTHER NEEDS AT THIS TIME
--- NOTE | 2020-08-09 09:30 | NUR ---
Spoke with Bertrand. He had a good outing yesterday. States he is not as far along in his rehab as he thought. Was exhausted on return. Also stated he was unable toget to the bathroom in time. States he will listen to Al about when he should discharge.
--- NOTE | 2020-08-09 10:09 | NUR ---
PATIENT SITTING UP IN CHAIR. VITAL SIGNS AND I&O DONE. CALL LIGHT WITHIN REACH. NO OTHER NEEDS AT THIS TIME
--- NOTE | 2020-08-09 11:37 | NUR ---
PATIENT FINISHED WITH PT WHEN I STOPPED IN TO CHECK ON HOW HE IS EATING TODAY. HE SAID HE WAS ABLE TO GET DOWN 1/2 PANCAKE WITH SYRUP, 2/3 OF HIS EGGS, SOME OJ, A FEW STRAWBERRIES. HE FELT LIKE HE HAD A LITTLE MORE ENERGY FOR PT TODAY. HIS SWALLOWING HAS NOT IMPROVED A WHOLE LOT BUT HE IS HAVING A BETTER DAY TODAY SO FAR. WE TALKED ABOUT HIM DRINKING AN ENSURE WITH BREAKFAST TO GIVE HIM MORE ENERGY. HE SAID HE TRIED IT THINNED WITH MILK A FEW DAYS AGO AND HE COULDN'T GET IT DOWN. HE IS WILLING TO TRY THE ENSURE CLEAR DOMINGUEZ FLAVOR. I TOOK HIS LUNCH ORDER AND ADDED 1/2 OF AN ENSURE CLEAR DUE TO KEEPING HIS CARBS CLOSE TO 60 GM. WILL CONTINUE TO FOLLOW.
--- NOTE | 2020-08-09 13:27 | NUR ---
STEPPED IN TO CHECK ON PT. HE IS LAYING DOWN IN BED, ASKED FOR HELP RAISING BED HIS LUNCH WAS BROUGHT IN. PT OFFERED BLESSING FOR MEAL AND INVITED ME TO SIT DOWN AND VISIT. PT SHARED HOW MUCH HE ENJOYED HIS OUTING WITH HIS YESTERDAY. HAD GOOD VISIT, GAVE BLESSING WILL FOLLOW
--- NOTE | 2020-08-09 14:11 | NUR ---
Patient resting in bed, respirations even and non labored. Personal supplies and call light within reach.
--- NOTE | 2020-08-09 14:49 | NUR ---
Patient taking a nap, respirations even and non labored. Pt has no distress. Call light within reach.
--- NOTE | 2020-08-09 18:15 | NUR ---
PATIENT SITTING UP IN CHAIR. I&O DONE. PATIENT'S DINNER ORDERED. CALL LIGHT WITHIN REACH. NO OTHER NEEDS AT THIS TIME
--- NOTE | 2020-08-09 20:15 | NUR ---
BED ALARM WENT OFF. WENT IN TO THE ROOM. PATIENT WAS IN BED BOOSTING UP HIMSELF. PATIENT WANTED TO HAVE ALL THE BLANKETS STRAIGHT UP. CALL LIGHT IN REACH.
--- NOTE | 2020-08-09 21:12 | NUR ---
pt in bed, coop with assessment, took meds crushed in applesauce. On room air, L arm compression sleeve and glove in place. no c/o pain, tolerating liquids and diet well. on Transitional care status
--- NOTE | 2020-08-10 00:52 | NUR ---
Resting, eyes closed, nor piero distress, call lihgt at bedside,
--- NOTE | 2020-08-10 01:25 | NUR ---
PATIENT CALLED FOR 2 WARM BLANKET. PROVIDED.
--- NOTE | 2020-08-10 04:19 | NUR ---
Resting, eyes closed, no distress, turns self in bed, call light and fluids at at bedside
--- NOTE | 2020-08-10 05:45 | NUR ---
Has slept off and on this shift, 1PA/FWW to get up to br, has voided QS, no bm this shift, declined to have MIralax. I've been having plenty of bm's stated. L arm decreased edema, compression sleeve, sport tape in place, uses compression glove too. bruising over arms decreasing. Alert and oriented. takes meds cruched, no cough or c/o throat problems tonight. uses seat wedge Tolerating diet and fluids well. uses call light apropriately
--- NOTE | 2020-08-10 07:15 | NUR ---
PT RESTING SUPINE IN BED, EYES CLOSED AND RESPIRATIONS EVEN AND UNLABORED CALL LIGHT AND H2O IN REACH. REPORT RECEIVED FROM NOC SHIFT RN.
--- NOTE | 2020-08-10 08:39 | NUR ---
PT SITTING UP IN CHAIR ALERT AND ORIENTED CALL LIGHT AND H2O IN REACH. PT ASSESSMENT COMPLETED. AM MEDS ADMINISTERED. CALL LIGHT AND H2O IN REACH. NO NEEDS OR CONCERNS VOICED.
--- NOTE | 2020-08-10 08:45 | NUR ---
Met with Mr Mas this morning in a.m. MDT meeting. Mr Mas was up and dressed, and taking his pills in apple sauce. He answered questions appropriately when asked. He did talk about his outing earlier this week, and did admit that he was fatigued with that outing. Mr. Mas is very pleasant to visit with. He expressed gratitude to the staff members who are working with him on his goals. He did state "They push me to do what I need to do to get stronger, and I appreciate that". Mr. Mas also expressed that "they all do a good job."
--- NOTE | 2020-08-10 09:00 | NUR ---
Pt. is in good humor today. Unsure when he will dc. Very happy with transitional care and emotional with the care he has received. Discussed I will give Medicare notice letter, in case he discharges over the weekend.
--- NOTE | 2020-08-10 11:30 | NUR ---
PT RESTING IN CHAIR, ALERT AND ORIENTED. CALL LIGHT AND H2O IN REACH. FRESH WATER, BLANKET AND REMOTE CONTROL PROVIDED PER PT REQUEST. PT DENIES FURTHER NEEDS OR CONCERNS.
--- NOTE | 2020-08-10 14:02 | NUR ---
PT SITTING UP IN BED EATING LUNCH WITH HIS , NO NEEDS OR CONCERNS VOICED. CALL LIGHT AND H2O IN REACH.
--- NOTE | 2020-08-10 14:06 | NUR ---
PATIENT IS SITTING UP ON THE SIDE OF HIS BED EATING HIS LUNCH.
--- NOTE | 2020-08-10 15:30 | NUR ---
Spoke with Dr. Bush. Notified pt had requested to see him for his difficulty with swollowing. Updated I had requested the patient call Dr. Bush's office and make and appt. Dr Bush agreed and and stated he cannot see this patient until he makes and appt with his office.
--- NOTE | 2020-08-10 17:00 | NUR ---
PT RESTING IN SEMIFOWLERS POSITION IN BED ON PHONE WITH HIS , PT STATES HIS ORDERED HIS DINNER ALREADY AND DENIES NEEDS OR CONCERNS. CALL LIGHT AND H2O IN REACH.
--- NOTE | 2020-08-10 20:32 | NUR ---
In bed, room air, coop with assessment. L arm with sport tape in place, left arm compression sleeve in place, good CMS. up to br, voiding qs, no c/o sore throat or constriction stated at this time. meds crushed and given in applesauce. pt on transtional care status
--- NOTE | 2020-08-10 22:20 | NUR ---
IN BED, HEEL PROTECTORS APPLIAD AT HIS REQUESTS
--- NOTE | 2020-08-10 23:46 | NUR ---
hell protectors removed at his request. room temp decreaed to his requests, bed covers repositioned. call light and fluids at bedside, no c/o pain. l arm compression sling inplace, good cm, decreased edema
--- NOTE | 2020-08-11 02:32 | NUR ---
resting, on room air, no requets, no s/sx distress, call light at bedside, laying on wedge cushion
--- NOTE | 2020-08-11 03:38 | NUR ---
RESATING, EYES CLOSED, NO RESP DISTRESS, ON ROOM AIR CALL LIGHT AND FLUDIS AT BEDSIDE
--- NOTE | 2020-08-11 05:22 | NUR ---
PT HAS SLEPT THIS SHIFT. ON ROOM AIR, NO C/O PAIN OR THROAT /SWALLOWING PROBLEMS. VOIDING QS. UP 1PA/FWW, TOLERATING WELL, DID STAIRS YESTERDAY WITH PT. DECREASED EDEMA L ARM, COMPRESSION SLEEVE IN PLACE. GOOD CMS. MED GIVEN CRUSHED. TOLERATED WELL. PT IS TO BE DC'D HOME TODAY, PT LOOKING FORWARD TO IT.
--- NOTE | 2020-08-11 08:15 | NUR ---
Spoke with Duane. He is eating croatian toast and eggs. Took a drink of orange juice and coughed violently for a few minutes. States he is having cont. to have difficulty swallowing. Updated I saw Dr. Cheek yesterday and he requested pt make an appointment. I requested nurses to schedule a fu for Duane with Dr. Cheek. Medicare notice of dc given. Pt is not sure if he will dc tomorrow or later. Informed I'm not here on the weekend. He is in agreement with this. New paper given. He again states he will listen to Al and Laura about appropriate time for dc.
--- NOTE | 2020-08-11 08:40 | NUR ---
pt asssited up to restroom with sba and fww and back to bed. Pt assessment completed. pt states "i'm looking forward to getting to go home today". AM meds administered. Pt denies further needs or concerns.
--- NOTE | 2020-08-11 09:33 | NUR ---
Update from Al and Dr. Cary, Duane did very well with his rehab this morning. He is wanting to discharge today and Al feels he is ready. He notified Dr. Cary and he will order OP PT for pt to cont. PT. Chart faxed to OP to set appt with Duane on discharge. Pt will dc home with today.
--- NOTE | 2020-08-11 09:55 | NUR ---
Chart sent to OP therapy: progress note, H&P, OT/PT eval and last note, face sheet.
[2020-08-11] MEDS ORDERED: TORSEMIDE5 MG PO (11:13)
[2020-08-11] MEDS ORDERED: CARVEDILOL3.125 MG PO (11:13)
[2020-08-11] MEDS ORDERED: KEFLEX500 MG PO (11:21)
[2020-08-11] MEDS ORDERED: MAGIC MOUTHWASH PO (12:07)
--- NOTE | 2020-08-11 12:32 | NUR ---
PT RESTING COMFORTABLY IN BED, WELCOMED ME IN. PT IS TO DC TODAY, SEEMS READY TO BE IN HIS OWN BED AND ENJOY A NEW LIFT CHAIR HE HAS PURCHASED. PT IS ALERT ORIENTED AND WAITING FOR HIS . GAVE BLESSING, PT REQUESTED PRAYER.
== END 2020-08-11 12:45 | disposition home or self-care (01) | DRG 392 ==
LOC: MS 12:01
PROVIDERS: ADMIT Internal Medicine; ATTEND Internal Medicine
DX: R13.12 Dysphagia, oropharyngeal phase (principal); N17.9 Acute kidney failure, unspecified; N39.0 Urinary tract infection, site not specified; M62.82 Rhabdomyolysis; I48.20 Chronic atrial fibrillation, unspecified; I50.22 Chronic systolic (congestive) heart failure; B95.2 Enterococcus as the cause of diseases classified elsewhere; E11.40 Type 2 diabetes mellitus with diabetic neuropathy, unspecified; T84.54XD Infection and inflammatory reaction due to internal left knee prosthesis, subsequent encounter; I25.10 Atherosclerotic heart disease of native coronary artery without angina pectoris; M06.9 Rheumatoid arthritis, unspecified; B00.9 Herpesviral infection, unspecified; G89.29 Other chronic pain; K21.9 Gastro-esophageal reflux disease without esophagitis; I11.0 Hypertensive heart disease with heart failure; Z86.19 Personal history of other infectious and parasitic diseases; Z87.891 Personal history of nicotine dependence; Z95.0 Presence of cardiac pacemaker; Z88.2 Allergy status to sulfonamides; Z79.2 Long term (current) use of antibiotics; Z79.84 Long term (current) use of oral hypoglycemic drugs; Z79.82 Long term (current) use of aspirin; Z79.891 Long term (current) use of opiate analgesic; Z79.899 Other long term (current) drug therapy
CPT/HCPCS: 36415; 83036; 85610; 97110; 97112; 97116; 97140; 97163; 97166; 97535; J1815

== ENCOUNTER 2020-12-09 13:33 | Emergency (ER) | payer MEDICARE, OTHER ==
[~2020-12-09] VITALS: Ht 170.2 cm; Wt 81.8 kg
[~2020-12-09 13:33] MED LIST changes: +LEVOFLOXACIN250 MG PO; +MAGIC MOUTHWASH PO; +TORSEMIDE5 MG PO; +WARFARIN SODIUM1 MG PO
--- OUTSIDE RECORDS SUMMARY | 2020-12-09 13:36 | XMS ---
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 Alexis VISIT COUNT (12 MO.) 7 MARVIN Serrano TOTAL 7 NOTE: Visits indicate total known visits. ED/C VISIT TRACKING (12 MO.) 12/09/2020 13:34 [facility] [place] TYPE: Emergency COMPLAINT: - HEAD LACERATION 07/26/2020 14:18 [facility] [place] TYPE: Emergency COMPLAINT: - MEDICAL CLEARANCE 07/16/2020 08:24 [facility] [place] TYPE: Emergency COMPLAINT: - LOW BLOOD SUGAR 06/30/2020 12:48 [facility] [place] TYPE: Emergency COMPLAINT: - FEVER, COUGH, SOB, DEHYDRATED DIAGNOSES: - Other viral pneumonia - Other termite exterminator helper (current) drug therapy - COVID-19 - assisted (current) use of anticoagulants - Hypertensive heart disease with heart failure - Chest pain, unspecified - Cough - Shortness of breath - Dehydration - Old myocardial infarction - Type 2 diabetes mellitus without complications - Allergy status to sulfonamides - Heart failure, unspecified - Pneumonia, unspecified organism 06/27/2020 20:50 [facility] [place] TYPE: Emergency COMPLAINT: - POSSIBLE COVID DIAGNOSES: - COVID-19 - Hypertensive heart disease with heart failure - Personal history of nicotine dependence - Weakness - Old myocardial infarction - Heart failure, unspecified - Type 2 diabetes mellitus without complications - Other termite exterminator helper (current) drug therapy 06/19/2020 18:29 [facility] [place] TYPE: Emergency COMPLAINT: - SOB/FEVER DIAGNOSES: - Old myocardial infarction - Other termite exterminator helper (current) drug therapy - Heart failure, unspecified - Personal history of nicotine dependence - Fever, unspecified - Hypertensive heart disease with heart failure - Type 2 diabetes mellitus without complications - Allergy status to sulfonamides 12/19/2019 23:12 [facility] [place] TYPE: Emergency COMPLAINT: - CONSTIPATION/ FEVER/URINE PROBLEM INPATIENT VISIT TRACKING (12 MO.) 08/01/2020 12:01 [facility] [place] TYPE: Medical Surgical COMPLAINT: - TC DECONDITIONING DIAGNOSES: - assisted (current) use of oral hypoglycemic drugs - Dysphagia, oropharyngeal phase - Allergy status to sulfonamides - Enterococcus as the cause of diseases classified elsewhere - Type 2 diabetes mellitus with diabetic neuropathy, unspecified - Herpesviral infection, unspecified - assisted (current) use of aspirin - Acute kidney failure, unspecified - Personal history of nicotine dependence - termite exterminator helper (current) use of oral hypoglycemic drugs - Enterococcus as the cause of diseases classified elsewhere - Allergy status to sulfonamides - termite exterminator helper (current) use of antibiotics - Personal history of nicotine dependence - Other chronic pain - Presence of cardiac pacemaker - assisted (current) use of antibiotics - Dysphagia, oropharyngeal phase - assisted (current) use of opiate analgesic - termite exterminator helper (current) use of opiate analgesic - Urinary tract infection, site not specified - Other fpc (current) drug therapy - Acute kidney failure, unspecified - termite exterminator helper (current) use of aspirin - Chronic atrial fibrillation, unspecified - Hypertensive heart disease with heart failure - Rheumatoid arthritis, unspecified - Atherosclerotic heart disease of [place] coronary artery without angina pectoris - Herpesviral infection, unspecified - Gastro-esophageal reflux disease without esophagitis - Hypertensive heart disease with heart failure - Gastro-esophageal reflux disease without esophagitis - Other termite exterminator helper (current) drug therapy - Rhabdomyolysis - Personal history of other infectious and parasitic diseases - Personal history of other infectious and parasitic diseases - Infection and inflammatory reaction due to internal left knee prosthesis, subsequent encounter - Infection and inflammatory reaction due to internal left knee prosthesis, subsequent encounter - Other chronic pain - Chronic systolic (congestive) heart failure - Type 2 diabetes mellitus with diabetic neuropathy, unspecified - Rheumatoid arthritis, unspecified - Rhabdomyolysis - Chronic atrial fibrillation, unspecified - Presence of cardiac pacemaker - Chronic systolic (congestive) heart failure - Atherosclerotic heart disease of [place] coronary artery without angina pectoris 07/26/2020 19:[address] [facility] [place] TYPE: Medical Surgical COMPLAINT: - ALVINO DIAGNOSES: - Other fpc (current) drug therapy - Personal history of nicotine dependence - Other specified disorders of the male genital organs - Chronic kidney disease, unspecified - Personal history of other infectious and parasitic diseases - Unspecified atrial fibrillation - Myocardial infarction type 2 - Urinary tract infection, site not specified - Gastro-esophageal reflux disease without esophagitis - termite exterminator helper (current) use of antibiotics - Type 2 diabetes mellitus with hypoglycemia without coma - Presence of cardiac pacemaker - Rheumatoid arthritis, unspecified - Myocardial infarction type 2 - Type 2 diabetes mellitus with hypoglycemia without coma - Chronic systolic (congestive) heart failure - Adverse effect of other antihypertensive drugs, initial encounter - Other Gram-negative sepsis - Adverse effect of other antihypertensive drugs, initial encounter - Rheumatoid arthritis, unspecified - Other fpc (current) drug therapy - Other specified disorders of the male genital organs - Chronic kidney disease, unspecified - Chronic systolic (congestive) heart failure - Acute kidney failure, unspecified - Presence of cardiac pacemaker - Atherosclerotic heart disease of [place] coronary artery without angina pectoris - Ischemic cardiomyopathy - Sepsis, unspecified organism - Gastro-esophageal reflux disease without esophagitis - Type 2 diabetes mellitus with diabetic neuropathy, unspecified - Other Gram-negative sepsis - Ventricular tachycardia - Infection and inflammatory reaction due to internal right knee prosthesis, initial encounter - Ventricular tachycardia - Nephropathy induced by other drugs, medicaments and biological substances - Old myocardial infarction - termite exterminator helper (current) use of anticoagulants - Cervicalgia - termite exterminator helper (current) use of anticoagulants - Personal history of nicotine dependence - Other forms of stomatitis - Cervicalgia - assisted (current) use of oral hypoglycemic drugs - Hypertensive heart and chronic kidney disease with heart failure and stage 1 through stage 4 chronic kidney disease, or unspecified chronic kidney disease - Old myocardial infarction - Infection and inflammatory reaction due to internal right knee prosthesis, initial encounter - Other forms of stomatitis - Personal history of other infectious and parasitic diseases - Ischemic cardiomyopathy - Type 2 diabetes mellitus with diabetic chronic kidney disease - Type 2 diabetes mellitus with diabetic neuropathy, unspecified - assisted (current) use of antibiotics - Type 2 diabetes mellitus with diabetic chronic kidney disease - Atherosclerotic heart disease of [place] coronary artery without angina pectoris - Acute kidney failure, unspecified - Urinary tract infection, site not specified - Unspecified atrial fibrillation - Hypertensive heart and chronic kidney disease with heart failure and stage 1 through stage 4 chronic kidney disease, or unspecified chronic kidney disease - Nephropathy induced by other drugs, medicaments and biological substances - assisted (current) use of oral hypoglycemic drugs 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, rhabdomyolysis - COVID-19 - Chronic systolic (congestive) heart failure - Presence of aortocoronary bypass graft - Hyperlipidemia, unspecified 07/16/2020 14:11 [facility] [place] TYPE: Critical Care COMPLAINT: - RHABDOMYLYSIS DIAGNOSES: - Dilated cardiomyopathy - termite exterminator helper (current) use of oral hypoglycemic drugs - Acute pharyngitis, unspecified - Atherosclerotic heart disease of [place] coronary artery without angina pectoris - assisted (current) use of anticoagulants - Type 2 diabetes mellitus with hypoglycemia without coma - Infection and inflammatory reaction due to internal right knee prosthesis, subsequent encounter - termite exterminator helper (current) use of antibiotics - Presence of aortocoronary bypass graft - Ventricular tachycardia - Allergy status to sulfonamides - Other termite exterminator helper (current) drug therapy - COVID-19 - Hypotension, unspecified - Chronic systolic (congestive) heart failure - Presence of cardiac pacemaker - Rhabdomyolysis - Hypertensive heart disease with heart failure - Old myocardial infarction 12/19/2019 23:13 [facility] [place] TYPE: Observation COMPLAINT: - UTI DIAGNOSES: - Personal history of nicotine dependence - termite exterminator helper (current) use of systemic steroids - termite exterminator helper (current) use of oral hypoglycemic drugs - Personal history of other diseases of the circulatory system - Chronic kidney disease, unspecified - Unspecified staphylococcus as the cause of diseases classified elsewhere - termite exterminator helper (current) use of antibiotics - Heart failure, unspecified - Old myocardial infarction - Unspecified osteoarthritis, unspecified site - Hypertensive heart and chronic kidney disease with heart failure and stage 1 through stage 4 chronic kidney disease, or unspecified chronic kidney disease - Other termite exterminator helper (current) drug therapy - Urinary tract infection, site not specified - Atherosclerotic heart disease of [place] coronary artery without angina pectoris - Type 2 diabetes mellitus with diabetic chronic kidney disease - Allergy status to sulfonamides - Infection and inflammatory reaction due to internal right knee prosthesis, initial encounter [email or web address]
[2020-12-09] MEDS ORDERED: ENTRESTO 24 MG1 EACH PO (13:47)
[2020-12-09] MEDS ORDERED: METOPROLOL SUCC25 MG PO (13:49)
== END 2020-12-09 16:40 | disposition home or self-care (01) ==
LOC: ED 13:33
DX: S01.01XA Laceration without foreign body of scalp, initial encounter (principal); W18.09XA Striking against other object with subsequent fall, initial encounter; E11.9 Type 2 diabetes mellitus without complications; I11.0 Hypertensive heart disease with heart failure; I50.9 Heart failure, unspecified; I25.2 Old myocardial infarction; Z87.891 Personal history of nicotine dependence; Z88.2 Allergy status to sulfonamides; Z79.899 Other long term (current) drug therapy; Z79.891 Long term (current) use of opiate analgesic; Z79.82 Long term (current) use of aspirin; Z79.01 Long term (current) use of anticoagulants
CPT/HCPCS: 12002; 70450; 90471; 90715; 99283-25

== ENCOUNTER 2022-05-24 14:28 | Emergency (ER) | payer MEDICARE, OTHER ==
[~2022-05-24] VITALS: Ht 170.2 cm; Wt 81.8 kg
[~2022-05-24 14:28] MED LIST changes: +CEPHALEXIN500 MG PO; +CLOPIDOGREL75 MG PO; +JANUVIA25 MG PO; +WARFARIN SODIU2.5 MG PO
== END 2022-05-24 22:08 | disposition home or self-care (01) ==
LOC: ED 14:28
DX: J02.8 Acute pharyngitis due to other specified organisms (principal); I11.0 Hypertensive heart disease with heart failure; I50.9 Heart failure, unspecified; E11.9 Type 2 diabetes mellitus without complications; I25.2 Old myocardial infarction; Z20.822 Contact with and (suspected) exposure to COVID-19; Z79.01 Long term (current) use of anticoagulants; Z79.899 Other long term (current) drug therapy; Z79.02 Long term (current) use of antithrombotics/antiplatelets
CPT/HCPCS: 87502; A9270; C9803; U0003

== ENCOUNTER 2022-08-05 23:06 | Observation (INO) | payer MEDICARE, OTHER ==
[~2022-08-05] VITALS: Ht 170.2 cm; Wt 85.0 kg
[~2022-08-05 23:06] MED LIST changes: +VITAMIN D325 MCG PO; -VITAMIN D350 MC3 PO
--- OUTSIDE RECORDS SUMMARY | 2022-08-05 23:08 | XMS ---
PreManage Notification: JÚNIOR ARREOLA Security Records Analysis Manager Events No recent Security Events currently on file CRITERIA MET - [place] CARE PROVIDERS GILMA CULVER Family [facility] 07/17/2020-Current PHONE: Unknown Clemencia Wisdom Nurse Practitioner: Family Current PHONE: [phone] Glenna has no Care Guidelines for this patient. Alexis VISIT COUNT (12 MO.) 2 MARVIN Serrano TOTAL 2 NOTE: Visits indicate total known visits. ED/UCC VISIT TRACKING (12 MO.) 08/05/2022 23:07 [facility] [place] TYPE: Emergency COMPLAINT: - CHEST PAIN 05/24/2022 14:29 [facility] [place] TYPE: Emergency COMPLAINT: - SWALLOWING PROBLEM DIAGNOSES: - Hypertensive heart disease with heart failure - senior care (current) use of anticoagulants - Dysphonia - Type 2 diabetes mellitus without complications - Other buttermaker (current) drug therapy - Old myocardial infarction - Acute pharyngitis due to other specified organisms - Heart failure, unspecified - Contact with and (suspected) exposure to COVID-19 - senior care (current) use of antithrombotics/antiplatelets INPATIENT VISIT TRACKING (12 MO.) No inpatient visits to display in this time frame [email or web address]
[2022-08-05] MEDS ORDERED: GLIPIZIDE5 MG PO (23:14)
[2022-08-05] MEDS ORDERED: POTASSIUM CHLO10 ME2 PO (23:14)
--- NOTE | 2022-08-06 00:50 | NUR ---
PT ARRIVES TO [facility] ROOM 127, ADMITTED FOR HYPOTENSION AND DEHYDRAION. ALERT AND ORIENTED, SLIDES SELF OVER TO BED FROM [facility]. HAS JUST FINISHED MAGNESIUM INFUSION. HR 80-90'S, CURRENTLY IN AND OUT OF PACED RHYTHM. REPORTS FEELING LIGHTHEADED AT HOME, NOTICED LOW BLOOD PRESSURE AND CALLED AMBULANCE AFTER A FEW HOURS OF SUSTAINED LOW BP'S. ASSESSMENT DONE, PT DENIES FEELING LIGHTHEADED AT THIS TIME. PLAN TO MONITOR THE PT THROUGH THE NIGHT DISCUSSED, CALL LIGHT IN HAND AND PT AGREES TO USE CALL LIGHT AND NOT TO GET UP WITHOUT ASSISTANCE.
--- NOTE | 2022-08-06 02:39 | NUR ---
PT CALLED FOR HELP POSITIONING UP IN BED, DENIES FURTHER NEEDS.
--- NOTE | 2022-08-06 04:15 | NUR ---
PT WOKE UP SLIGHTLY THEN BACK TO SLEEP, DENIES NEEDS.
--- NOTE | 2022-08-06 06:43 | NUR ---
PT RESTING, HR MOSTLY 60-70'S, PACED OFF AND ON. RESP EVEN AND UNLABORED WITH RR 14.
--- NOTE | 2022-08-06 07:11 | NUR ---
PT CALLS TO GET UP TO BSC, HAS A BOWEL MOVEMENT AND VOIDED UNMEASURED AMOUNT, APPROX 300ML. DENIES LIGHTHEADEDNESS. HR UP TO 100-110 WHILE UP. BACK TO BED WITH CALL LIGHT IN HAND.
--- NOTE | 2022-08-06 07:30 | NUR ---
REPORT RECEIVED FROM NIGHT RN - PT RESTING IN BED ASLEEP WITH HOB ELEVATED , RR EVEN AND UNLABORED. CURRENT BP 90'S/40'S. CALL LIGHT IN REACH.
--- NOTE | 2022-08-06 07:50 | NUR ---
Spoke with Duane. He has returned with dehydration. States this is due to covid for the second time 3 weeks ago. He states he is feeling better today. He has a cane, walker, and scooter at home. He denies any other needs. Pt's pcp is not Dr. Evgeny Smith, but Clemencia TOMLIN. Admitting notified by email to correct.
--- NOTE | 2022-08-06 08:05 | NUR ---
RN IN ROOM TO ASSESS PT - PT RESTING IN BED, MD IN ROOM ROUNDING. PT AAOX4, STATES HE FEELS IMPROVED. PT SHARES HE RECENTLY HAD WEEK OF LOOSE STOOL AFTER SON RETURNED FROM [place], STATES HE HAS BEEN DEHYDRATED SINCE. BP IMPROVING, RATE WNL WITH REST, VENT PACED ON DEMAND. PT DENIES PAIN. USING BSC WITHOUT S/S OF HYPOTENSION. IV SITE WNL, MAG IVF STARTED. FINE CRACKLES NOTED BILAT LUNG BASES, OCCASIONAL CONGESTED COUGH PRODUCED BY PT, STATES NO MORE THAN HIS "NORMAL". OTHER RN CALLING FOR CARDIOLOGY RECORDS PER MD REQUEST.
--- NOTE | 2022-08-06 08:27 | NUR ---
Contacted [facility] in [place] to obtain most recent progress note. Fax sent per facility request for information. Will notify primary RN and MD once information has arrived.
--- NOTE | 2022-08-06 09:00 | NUR ---
RN IN ROOM ROUNDING ON PT - BREAKFAST REHEATED FOR PT, DENIES FURTHER NEEDS. PT TALKATIVE AND APPEARS IN GOOD SPIRITS.
--- NOTE | 2022-08-06 09:41 | NUR ---
RN IN ROOM ROUNDING ON PT - FINISHED WITH BREAKFAST, ADEQUATE APPETITE. MAG INFUSION COMPLETE, IV SITE WNL, FLUSHED AND SALINE LOCKED. PT DENIES PAIN, REPOSISTIONED IN BED WITH COCCYX PILLOW IN PLACE. CALL LIGHT IN REACH.
--- NOTE | 2022-08-06 11:22 | NUR ---
RN ROUNDING ON PT - PT ASLEEP IN BED WITH HOB ELEVATED. CALL LIGHT AT SIDE. RR EVEN AND UNLABORED, HR 60'S WHILE SLEEPING. PACER APPEARS TO BE WORKING APPROPRIATLY
--- NOTE | 2022-08-06 12:00 | NUR ---
Resumed care from FLY Comer. position clerk completed. Patient laying in bed, eating lunch, watching tv. Occassional cough, but otherwise, patient states he feels "fine." Patient able to converse appropriately, follow commands, and is alert and oriented. Patient denies needs at this time. Personal items and call light within reach.
--- NOTE | 2022-08-06 12:59 | NUR ---
DISCHARGE INSTRUCTIONS REVIEWED WITH PATIENT. PER PATIENT, HE DOES NOT HAVE A PCP DUE TO HIS PREVIOUS ONE RETIRING. AT THIS TIME, HE MOSTLY FOLLOWS UP WITH HIS BOILERMAKING SUPERVISOR WHEN NEEDED. PATIENT STATES HE ALREADY HAS A BOILERMAKING SUPERVISOR APPOINTMENT IN [place] AND WILL KEEP THAT APPOINTMENT FOR INTERROGATION AND FOLLOW UP. VITAL SIGNS TAKEN, IVs REMOVED. PERSONAL ITEMS COLLECTED BY PATIENT FOR DISCHARGE. PATIENT TO LEAVE UNIT VIA WHEELCHAIR AND PERSONAL VEHICLE. ALL QUESTIONS ANSWERED DURING EDUCATION.
[2022-08-06] MEDS ORDERED: FOLIC ACID0.4 MG PO (13:02)
[2022-08-06] MEDS ORDERED: VICTOZA 2-0.6 MG/0.1 SUB-Q (13:04)
--- NOTE | 2022-08-06 21:54 | EKG ---
[facility] [address] [place] [address] Signed Wide QRS rhythm Left axis deviation Right bundle branch block Inferior infarct , age undetermined Abnormal ECG When compared with ECG of 26-JUL-2020 15:10, Wide QRS rhythm has replaced Sinus rhythm Confirmed by RONAL SMALLS MD ([id number]) on 08/06/2022 9:54:03 PM Electronically Signed By: RONAL SMALLS MD 08/06/222153 PATIENT NAME: JÚNIOR ARREOLA Electrocardiogram DATE OF : 36 PHYSICIAN: RONAL SMALLS MD REPORT #: [id number] REPORT IS CONFIDENTIAL AND NOT TO BE RELEASED WITHOUT AUTHORIZATION
== END 2022-08-06 13:40 | disposition home or self-care (01) ==
LOC: ED 23:06 → CCU 23:08
PROVIDERS: ADMIT Internal Medicine; ATTEND Internal Medicine
DX: R42 Dizziness and giddiness (principal); I95.9 Hypotension, unspecified; I25.2 Old myocardial infarction; E11.9 Type 2 diabetes mellitus without complications; I11.9 Hypertensive heart disease without heart failure; Z88.2 Allergy status to sulfonamides; Z79.82 Long term (current) use of aspirin; Z20.822 Contact with and (suspected) exposure to COVID-19; E86.0 Dehydration
CPT/HCPCS: 36415; 71045; 80048; 80053; 81001; 83735; 83880; 84484; 85025; 85610; 85730; 93005; 93010; 96376; G0378; J3475; J7030; J7040; U0003

== ENCOUNTER 2022-08-12 12:14 | Observation (INO) | payer MEDICARE, OTHER ==
[~2022-08-12] VITALS: Ht 170.2 cm; Wt 81.1 kg
[~2022-08-12 12:14] MED LIST changes: +POTASSIUM CHLO10 ME2 PO; +VICTOZA 2-0.6 MG/0.1 SUB-Q
--- OUTSIDE RECORDS SUMMARY | 2022-08-12 12:18 | XMS ---
PreManage Notification: JÚNIOR ARREOLA Security Cco & President Events No recent Security Events currently on file CRITERIA MET - [facility] - 2 Visits in 30 Days CARE PROVIDERS GILMA CULVER Family Medicine 07/17/2020-Current PHONE: Unknown Clemencia WisdomP-Josseline Nurse Practitioner: Family Current PHONE: [phone] Glenna has no Care Guidelines for this patient. EMattie VISIT COUNT (12 MO.) [address] [place] [address] TOTAL 3 NOTE: Visits indicate total known visits. ED/UCC VISIT TRACKING (12 MO.) 08/12/2022 12:15 [facility] [place] TYPE: Emergency COMPLAINT: - LOW B/P 08/05/2022 23:07 [facility] [place] TYPE: Emergency COMPLAINT: - CHEST PAIN 05/24/2022 14:29 [facility] [place] TYPE: Emergency COMPLAINT: - SWALLOWING PROBLEM DIAGNOSES: - Hypertensive heart disease with heart failure - FDC (current) use of anticoagulants - Dysphonia - Type 2 diabetes mellitus without complications - Other roasterman (current) drug therapy - Old myocardial infarction - Acute pharyngitis due to other specified organisms - Heart failure, unspecified - Contact with and (suspected) exposure to COVID-19 - termite control service representative (current) use of antithrombotics/antiplatelets INPATIENT VISIT TRACKING (12 MO.) 08/05/2022 23:08 [facility] [place] TYPE: Observation COMPLAINT: - HYPOTENSION, DEHYDRATION [email or web address]
[2022-08-12] MEDS ORDERED: KETOCONAZOLE120 ML TOP (15:23)
--- NOTE | 2022-08-12 15:45 | NUR ---
Pt arrives to med surg floor room 114 via stretcher, able to move self to bed. Hx complete. VSS, pt A+O on RA. Pt reports no pain. States slightly dizzy at this time but tolerable at rest. IVF infusing WNL. Vit K dose administered per order. Tele in place, #8. Pt oriented to room and call light, states no needs at this time.
[2022-08-12] MEDS ORDERED: FLUOCINONIDE60 ML TOP (16:06)
--- NOTE | 2022-08-12 17:25 | NUR ---
ASSESSMENT COMPLETE. PT REPORTING 0/10 FOR PAIN. LUNG SOUNDS CLEAR. PT ON TELE NUMBER 8, PT HAS PACEMAKER. EDEMA NOTED TO BILATERAL LOWER EXTREMITIES. BILATERAL LOWER SHINS MARCO A AND SCALING. PT REPORTS PAIN IN BILATERAL LOWER SHINS IS CHRONIC. REDDENED AREA NOTED TO COCCYX, ALLEVIN PLACED BY FLY SERRA. SCAB ON RIGHT ORONA. SKIN IS DRY. PT USES PERSONAL CANE FOR AMBULATION WITH 1PA TO BATHROOM AND BACK TO BED WITH NO ISSUES. PT REQUESTS ALLEVIN TO BE REMOVED, ALLEVIN REMOVED.
--- NOTE | 2022-08-12 17:50 | NUR ---
THIS RN 1PA AND CANE TO THE RESTROOM AND BACK TO BED. PATIENT HAD 1 SMALL BLACK STOOL, WHICH GOT ON THE PREVIOUSLY PLACED ALLEVYN AND THIS WAS REMOVED AND LEFT OF AT PATIENT'S REQUEST. PATIENT ALSO VOIDED 650MLS YELLOW URINE. PATIENT CURRENTLY HAS HIS OWN COCCYX PRESSURE RELIEF PILLOW HE IS SITTING ON IN BED. PATIENT CURRENTLY EATING HIS CLEAR LIQUID DINNER. INSTRUCTED STEMMER MACHINE LIGHT AND BED FUNCTION USAGE. PATIENT DENIES ANY OTHER CARE NEEDS AT THIS TIME. CALL LIGHT IN REACH.
--- NOTE | 2022-08-12 19:27 | NUR ---
RECEIVED REPORT FROM DAY SHIFT RN. PATIENT IS RESTING IN BED. NO NEEDS NOTED. CALL LIGHT IN REACH.
--- NOTE | 2022-08-12 19:30 | NUR ---
CALL LIGHT ANSWERED. PATIENT STATED "I AM COLD". 2 WARM BLANKET PROVIDED. ROOM TEMP STAYS @72 DEGREE PER PATIENT. NO OTHER NEEDS AT THIS TIME.
--- NOTE | 2022-08-12 20:40 | NUR ---
CALL LIGHT ANSWERED. SBA TO THE BATHROOM AND BACK TO BED. V/S AND I&O'S TAKEN AND DOCUMENTED. BLOOD SUGAR CHECK DONE.
--- NOTE | 2022-08-12 21:07 | NUR ---
PATIENTS VITALS TAKEN AND RECORDED. PATIENTS PM MEDS GIVEN PER ORDER. PATIENT DENIES ANY PAIN OR NAUSEA. PATIENT ASSESMENT COMPLETED. IV INFUSING PER ORDER. PATIENT UPDATED ON PLAN OF CARE. ALL QUESTIONS ANSWERED. PATIENT IS ON RA. PATIENT DENIES ANY NEEDS. CALL LIGHT IN REACH. BED ALARM ON FOR SAFETY. CALL LIGHT IN REACH.
--- NOTE | 2022-08-12 23:45 | NUR ---
PATIENT IS RESTING IN BED WITH EYES CLOSED, RR 16. CALL LIGHT IN REACH.
--- NOTE | 2022-08-13 00:35 | NUR ---
RECEIVED CALL FROM DR PACHECO WITH VERBAL ORDER TO TRANSFUSE X2 UNITS OF PRBC EACH UNIT GOING IN OVER 3HRS, VERIFIED ORDER USING THE REPEATBACK METHOD. RECEIVED ORDER TO RETIME LABS TO 45MIN-1HR AFTER SECOND UNIT OS COMPLETED, VERIFIED THIS ORDER USING THE REPEATBACK METHOD.
--- NOTE | 2022-08-13 01:09 | NUR ---
BLOOD STARTED AT APPROX 0048. PRE VITALS TAKEN AND RECORDED. 15 MIN COMPLETED. NO S/SX OF A REACTION AT THIS TIME. PATIENT DENIES ANY SOB. PATIENT DENIES ANY NEEDS. CALL LIGHT IN REACH. BLOOD INFUSING PER ORDER.
--- NOTE | 2022-08-13 01:54 | NUR ---
PATIENT IS RESTING IN BED WITH EYES CLSOED, RR 16. CALL LIGHT IN REACH. BLOOD TRANSFUSING PER ORDER. CALL LIGHT IN REACH.
--- NOTE | 2022-08-13 02:35 | NUR ---
PATIENT IS RESTING IN BED. PATIENT ASSISTED WITH REPOSITIONING. PATIENTS BLOOD INFUSING PER ORDER. NO FURTHER NEEDS NOTED. CALL LIGHT IN REACH.
--- NOTE | 2022-08-13 03:44 | NUR ---
PATIENT IS RESTING IN BED. 1 UNIT PRBC COMPLETED INFUSING. PATIENT DENIES ANY S/SX OF REACTION.
--- NOTE | 2022-08-13 04:02 | NUR ---
PATIENT ASSISTED TO REPOSITION IN BED. PATIENTS SECOND UNIT OF BLOOD STARTED. PRE VITALS TAKEN. PATIENT MONITORED FOR 15 MINUTES AND VITALS TAKEN. PATIENT SHOWS NO S/SX OF REACTION AT THIS TIME. PATIENT DENIES ANY NEEDS. CALL LIGHT IN REACH. BED ALARM ON FOR SAFETY.
--- NOTE | 2022-08-13 04:29 | NUR ---
URINAL EMPTIED. PATIENT IS RESTING IN BED. BLOOD INFUSING PER ORDER. NO NEEDS NOTED. CALL LIGHT IN REACH.
--- NOTE | 2022-08-13 06:31 | NUR ---
PATIENT 2 UNIT OF PRBC COMPLETED INFUSING. POST VITALS COMPLETED. PATIENT DENIES ANY S/SX OF TRANSFUSION REACTION. PATIENT BACK IN IV INFUSING PER ORDER. PATIENT DENIES ANY FURTHER NEEDS. CALL LIGHT IN REACH.
--- NOTE | 2022-08-13 07:21 | NUR ---
THIS RN RECEIVED SHIFT REPORT FROM FLY LY. PATIENT RESTING QUIETLY IN HIGH FOWLERS POSITION, EYES CLOSED, RESPIRATIONS ARE REGULAR AND EVEN, AND CALL LIGHT IN REACH. PATIENT HAS NO NURSE CARE NEEDS AT THIS TIME. CALL LIGHT IS IN REACH.
--- NOTE | 2022-08-13 08:14 | NUR ---
WAITING FOR PATIET CLEAR MONTRELL. RONYY TO GET HERE BEFORE I DO HIS BLOOD SUGAR CHECK.
--- NOTE | 2022-08-13 08:57 | NUR ---
THIS RN IN TO SEE PATIENT AND AM ASSESSMENT COMPLETE. PATIENT DENIES PAIN AND NAUSEA AND IS WORKING ON HIS CLEAR LIQUID BREAKFAST. PATIENT REQUIRED NO INSULIN THIS AM. CM WAS IN ROOM TO TALK TO PATIENT ABOUT DC NEEDS WELL. PATIENT DENIES ANY OTHER NURSE CARE NEEDS AT THIS TIME. CALL LIGHT IS IN REACH.
--- NOTE | 2022-08-13 09:10 | NUR ---
Spoke with pt and he states everything is the same from last admission. Plans on dc to home with , denies need for DME. No financial issues.
--- NOTE | 2022-08-13 09:44 | NUR ---
PATIENT WENT TO THE BATHROOM. CALLED WHEN HE WAS DONE. CAME IN DID HIS VITALS. HE BRUSHED HIS TEETH AND WASHED HIS FACE. CALL LIGHT WEAR HE CAN REACH. SCDS ARE ON.
--- NOTE | 2022-08-13 10:28 | NUR ---
THIS RN IN TO CHECK ON PATIENT. PATIENT'S IS CURRENTLY IN THE ROOM VISITING WITH PATIENT. PATIENT ASKING ABOUT PLANS FOR HIS COLONOSCOPY. INFORMED PATIENT WE ARE AWAITING THE SURGEONS ROUNDS FOR NEW ORDERS. CALL LIGHT IN REACH AND PATIENT AND BOTH DENY ANY CARE NEEDS AT THIS TIME.
--- NOTE | 2022-08-13 11:45 | NUR ---
THIS RN IN AND STARTED A SECOND IV 22G IN THE RFA, THE OTHER SITE IS PATENT, BUT IS VERY POSITIONAL AND PUMP KEEPS BEEPING, SO NEW IV STARTED AND FLUIDS NOW RUNNING IN IT AND OTHER IV SL. PATIENT'S CONTINUES TO VISIT AT BEDSIDE. NO OTHER CARE NEEDS AT THIS TIME. CALL LIGHT IN REACH.
--- NOTE | 2022-08-13 12:00 | NUR ---
CHANGED PATIENT'S TELE BATTERIE DID BLOOD SUGAR CHECK.
--- NOTE | 2022-08-13 12:13 | NUR ---
PATIENT'S ASSISTING HIM IN HIS DECISIONS OF WHAT TO DRINK FIRST ON HIS CLEAR LIQUID TRAY. PATIENT GOT HIS SS INSULIN TO COVER FSBS. PATIENT DENIES ANY OTHER CARE NEEDS AT THIS TIME. CALL LIGHT IS IN REACH.
--- NOTE | 2022-08-13 12:35 | NUR ---
FLY BLAS IN ROOM ASSISTING PATIENT WITH HIS URINAL. PATIENT HAS NO NURSE CARE NEEDS FROM THIS RN AT THIS TIME. CALL LIGHT IN REACH.
--- NOTE | 2022-08-13 12:38 | NUR ---
DR. PACHECO IS AWARE THAT HE IS TO ORDER BOWEL PREP, REVIEW PATIENT EKG. OR CHARGE NURSE IS AWARE THAT PATIENT NEEDS ANESTHESIA PROVIDER CONSULT.
--- NOTE | 2022-08-13 14:11 | NUR ---
AFTERNOON ASSESSMENT COMPLETE. PATIENT'S HAS GONE HOME. IV FLUIDS COMPLETE AND PATIENT IS NS LOCKED AT THIS TIME. PATIENT HAS BEEN EDUCATED ON AND STARTED HIS BOWEL PREP. VS STABLE AND I+O RECORDED. COMMODE PLACED BY THE SIDE OF THE BED AND CALL LIGHT IS IN REACH. PATIENT WILL CALL SOON HE HAS THE URGE TO HAVE A BM. PATIENT'S UNDERWEAR TAKEN OFF AT THIS TIME.
--- NOTE | 2022-08-13 15:32 | NUR ---
THIS RN IN TO GIVE 2 NEW SCHEDULED MEDS. PATIENT HAS HAD 1 FORMED BM WITH HIS BOWEL PREP SO FAR. PATIENT CONTINUES TO WORK ON DRINKING THE BOWEL PREP, HE HAS NOT EVEN DRANK HALF OF IT YET. TELE DC'D PER MD ORDER. CALL LIGHT IN REACH AND PATIENT DENIES ANY OTHER CARE NEEDS AT THIS TIME.
--- NOTE | 2022-08-13 16:09 | NUR ---
PATIENT SITTING UP IN HIGH FOWLERS IN BED WORKING ON HIS BOWEL PREP. PATIENT HAS NO NURSING CARE NEEDS AT THIS TIME. CALL LIGHT IS IN REACH.
--- NOTE | 2022-08-13 18:11 | NUR ---
THIS RN WAS IN FOR SCHEDULED MEDS AND THEN DID VS WHICH WERE STABLE, HELPED PATIENT TO THE BEDSIED COMMODE WITH FWW AND THEN BACK TO BED, AND SET PATIENT'S DINNER UP FOR HIM. PATIENT HAS DRANK HALF OF HIS BOWEL PREP AT THIS TIME. CALL LIGHT IN REACH. STOOLS ARE DARK THIN LIQUID AT THIS TIME.
--- NOTE | 2022-08-13 19:44 | NUR ---
RECEIVED REPORT FROM DAY SHIFT RN. PATIENT IS UP TO BSC. PRESENT IN THE ROOM. NO NEEDS NOTED. CALL LIGHT IN REACH.
--- NOTE | 2022-08-13 19:52 | NUR ---
ASSISTED PATIENT ON ANA CARE. PULL UPS ON. PATIENT IS BACK IN BED FROM BEDSIDE COMMODE. WARM BLANKET PROVIDED. SIDE TABLE AND CALL LIGHT WITHIN REACH. IS IN THE ROOM. PATIENT IS STILL DRINKING HIS BOWEL PREP GATORADE.
--- NOTE | 2022-08-13 20:00 | NUR ---
SBA PATIENT FROM BEDSIDE COMMODE TO BED. FRESH PULL UPS PROVIDED. ANA CARE DONE. PATIENT'S MIXED VOIDINGS AND BM BLACK COLOR UNMEASURED LARGE QUANTITY.
--- NOTE | 2022-08-13 22:13 | NUR ---
PATIENT [place] [facility] WAS ABLE TO VOID AND HAVE A BM. PATIENTS VITALS TAKEN AND RECORDED. INTAKE AND OUTPUT RECORDED. PATIENT DENIES ANY PAIN OR NAUSEA. PATIENTS IVS X2 FLUSHED AND SL PER ORDER. PATIENTS BS TAKEN AND IS WNL. PATIENT DENIES ANY NFURTHER NEEDS. CALL LIGHT IN REACH. BED ALARM ON FOR SAFETY.
--- NOTE | 2022-08-14 00:09 | NUR ---
PATIENT ASSISTED TO THE BSC A 1PA W/FWW. PATIENT ABLE TO VOID AND HAVE LOOSE BM. PATIENT IS BACK IN BED RESTING. NO FURTHER NEEDS NOTED. CALL LIGHT IN REACH. BED ALARM ON FOR SAFETY.
--- NOTE | 2022-08-14 01:56 | NUR ---
PATIENT ASSISTED TO THE BSC. PATIENT ABLE TO VOID AND HAVE BM. PATIENT IS ABCK IN BED RESTING. NO FURTHER NEEDS NOTED. CALL LIGHT IN REACH. BED ALARM ON FOR SAFETY.
--- NOTE | 2022-08-14 03:13 | NUR ---
PATIENT ASSISTED TO REPOSITION IN BED. PATIENT DENIES ANY FURTHER NEEDS. CALL LIGHT IN REACH. BED ALARM ON FOR SAFETY.
--- NOTE | 2022-08-14 05:58 | NUR ---
PATIENT ASSISTED TO THE BSC. PATIENT ABLE TO HAVE LOOS BM AND VOID. PATIENT IS BACK IN BED RESTING. PATIENTS VITALS TAKEN AND RECORDED. INTAKE ADN OUTPUT RECORDED. NO FURTHER NEEDS NOTED. CALL LIGHT IN REACH. BED ALARM ON FOR SAFETY.
--- NOTE | 2022-08-14 08:31 | NUR ---
pt on respiratory droplet isolation precautions. on room air, lungs clear bilat, denies sob with exertion, helped with repositioning. sl lfa patent. abd large firm distended, brittany. uses urinal. le with dry scaly law colored. r worser than L, tender to touch. alert and oriented, cbg 135, no coverage needed, uses call light
--- NOTE | 2022-08-14 10:10 | NUR ---
Spoke with pt. He denies needs, states he is awaiting EGD/Cscope. Denies needs. Wants to know what time he will have procedure. Let him know I was told he was to to follow and they will let him know later. He denies further needs.
--- NOTE | 2022-08-14 10:29 | NUR ---
IN BED, HOB ELEVATED, ROOM AIR, NO DISTRESS, CALL LIGHT AT HANDS REACH, WILL AMBULATE AND NOTIFY
--- NOTE | 2022-08-14 11:41 | NUR ---
CBG 193, RECEIVED 2 UNITS SS HUMALOG INSULIN,
--- NOTE | 2022-08-14 12:40 | NUR ---
On room air, hob elevated, no emesis, tolerating liquids well, no c/o pain
--- NOTE | 2022-08-14 13:20 | NUR ---
PATIENT NEEDED TO USE THE BATHROOM. PATIENT WALKED WITH WALKER. HE WAS STEADY. HE ATE ALL HIS LUNCH IN ROOM.
--- NOTE | 2022-08-14 13:41 | NUR ---
Pt ate 100% lunch, tolerated well, no emesis, walked to br with ASSOCIATE DEAN, tolerated very well. 1PA/FWW. no c/o abd pain or any pain. tolerating liquids well. Bed alarm on.
--- NOTE | 2022-08-14 15:54 | NUR ---
Pt given dc and written instructions, to him and , had some question about why the appointment was not with her regular doctor at [facility] but with Krist[facility], this nurse had no clue but pt and instructed that her regular PCP may have the day off or so. instructed to call clinic and inquire. Pt aware of not to restart Coumadin, concerns about pacemaker and no coumadin stated, Pt stated he has an appointment with his apple thinner next week. instructed to please take [facility] dc papers with him and tell his apple thinner about this. stated understanding. DC home via w/c to private car. with all belongings and dc written instructions. pharmacist was in room explaining meds to pt earlier. Instructions reapeated twice tp as she seemed overwhelmed about having an appointment tomorrow with a different VOICER, reassured. again structed to call clinic herself and inquire. stated ok and calmed down.
--- NOTE | 2022-08-20 14:53 | NUR ---
SPOKE WITH PATIENT FOR POST DISCHARGE FOLLOW UP. PATIENT STATES HE FEELS "GREAT". NO BLEEDING. SAW PCP SABINE CUELLO ON THE . HAS APPOINTMENT WITH DR SMYTH THIS FRIDAY. STATES HE IS STILL NOT TAKING BLOOD THINNING MEDICATIONS UNTIL HE SEE'S DR SMYTH. STATES HE UNDERSTOOD MEDICATIONS AND "EVERYONE GOES OVER THAT STUFF REALLY WELL". PATIENT KNOWS HE IS TO RETURN TO A HOSPITAL IF HE HAS RECURRENT BLEEDING. HE STATES "I ALWAYS GET GREAT CARE AT [facility]".
== END 2022-08-14 15:54 | disposition home or self-care (01) ==
LOC: ED 12:14 → MS 12:16
PROVIDERS: ADMIT Internal Medicine; ATTEND Internal Medicine
DX: K92.2 Gastrointestinal hemorrhage, unspecified (principal); D62 Acute posthemorrhagic anemia; I95.1 Orthostatic hypotension; U07.1 COVID-19; I50.22 Chronic systolic (congestive) heart failure; N18.4 Chronic kidney disease, stage 4 (severe); E11.22 Type 2 diabetes mellitus with diabetic chronic kidney disease; I48.91 Unspecified atrial fibrillation; Z88.2 Allergy status to sulfonamides; Z20.822 Contact with and (suspected) exposure to COVID-19; I13.0 Hypertensive heart and chronic kidney disease with heart failure and stage 1 through stage 4 chronic kidney disease, or unspecified chronic kidney disease; Z79.4 Long term (current) use of insulin
CPT/HCPCS: 36415; 36430; 80048; 80053; 81001; 83036; 83735; 85025; 85060; 85610; 86850; 86900; 86901; 86922; 96365; 96375; 96376; 99284-25; C9113; C9803; G0378; J1815; J3430; J7121; P9016; U0003

== ENCOUNTER 2024-11-13 13:57 | Emergency (ER) | payer MEDICARE, OTHER ==
[~2024-11-13] VITALS: Ht 170.2 cm; Wt 84.8 kg
[~2024-11-13 13:57] MED LIST changes: +ELIQUIS2.5 MG PO; +FLAGYL375 MG PO; +FLUOCINONIDE60 ML TOP; +KETOCONAZOLE120 ML TOP; +LEVOFLOXACIN750 MG PO; +METHYLPREDNISOLO4 MG PO
[2024-11-13 14:50] LABS: BASOPHILS 0.7 % (0-2); EOSINOPHILS 0.6 % (0-6); HEMATOCRIT 38.2 % (35.0-50.0); HEMOGLOBIN 12.9 g/dL (12.0-18.0); LYMPHOCYTES 34.9 % (24-44); MCH 29.6 (27-36); MCHC 33.8 g/dl (30-36); MCV 87.6 fl (81-99); MONOCYTES 12.7 % (0-12); NEUTROPHILS 51.1 % (39-80); PLATELET COUNT 106 K/uL (140-440); RBC 4.36 M/ul (4.3-5.7); RDW 15.8 (10.5-15.0)
[2024-11-13] MEDS ORDERED: ACETAMINOPHEN 500 MG TAB PO ONE (15:00)
[2024-11-13] MEDS ORDERED: DIPHENOXYLATE/ATROPINE 1 EA TAB PO ONE (15:00)
[2024-11-13] MEDS ORDERED: SODIUM CHLORIDE 0.9% 1,000 ML IV ONE (15:00)
[2024-11-13 15:15] LABS: ALBUMIN 3.3 g/dL (3.4-5.0); ALBUMIN/GLOBULIN RATIO 0.79 (1.1-2.4); ANION GAP 18.6 (7-21); BILIRUBIN, TOTAL 0.5 ng/dL (0.2-1.0); BUN/CREATININE RATIO 25.5 (6.0-28.6); CALCIUM 7.8 mg/dL (8.5-10.1); CREATININE, SERUM 3.96 mg/dL (0.70-1.30); POTASSIUM 4.6 mmol/L (3.5-5.1); PROTEIN, TOTAL 7.5 g/dL (6.4-8.2)
[2024-11-13 18:06] LABS: BILIRUBIN, URINE NEGATIVE (negative); BLOOD/HGB, URINE NEGATIVE (Negative); KETONE, URINE NEGATIVE (Negative); LEUK ESTERASE, URINE NEGATIVE (negative); NITRITE, URINE NEGATIVE (negative); PH, URINE 5.5 (5-7)
[2024-11-13 18:28] VITALS: BP 115/48
--- NOTE | 2024-11-15 14:59 | EKG ---
[facility] [address] [place] [address] Signed Sinus rhythm with 1st degree AV block with premature atrial complexes Right bundle branch block Abnormal ECG When compared with ECG of 13-FEB-2023 17:58, No significant change was found Confirmed by Romeo Christian MD ([id number]) on 11/15/2024 2:59:09 PM Electronically Signed By: ROMEO CHRISTIAN MD 11/15/24 1459 PATIENT NAME: JÚNIOR ARREOLA ANITA Electrocardiogram DATE OF : 36 PHYSICIAN: ROMEO CHRISTIAN MD REPORT #: [id number] REPORT IS CONFIDENTIAL AND NOT TO BE RELEASED WITHOUT AUTHORIZATION
== END 2024-11-13 18:28 | disposition home or self-care (01) ==
LOC: ED 13:57
PROVIDERS: Emergency Medicine
DX: J11.1 Influenza due to unidentified influenza virus with other respiratory manifestations (principal); E86.0 Dehydration; N28.9 Disorder of kidney and ureter, unspecified; I11.0 Hypertensive heart disease with heart failure; I50.9 Heart failure, unspecified; I25.2 Old myocardial infarction; E11.42 Type 2 diabetes mellitus with diabetic polyneuropathy; Z88.2 Allergy status to sulfonamides; Z79.01 Long term (current) use of anticoagulants; Z79.85 Long-term (current) use of injectable non-insulin antidiabetic drugs; Z79.899 Other long term (current) drug therapy
CPT/HCPCS: 36415; 80053; 81003; 83690; 84484; 85025; 93005; 93010; 99284; A9270; J7030

== ENCOUNTER 2025-03-23 11:07 | Emergency (ER) | payer MEDICARE, OTHER ==
[~2025-03-23] VITALS: Ht 170.2 cm; Wt 84.5 kg
[2025-03-23] MEDS ORDERED: LIDOCAINE 2% VISCOUS 6 ML SYR TOP ONE (12:30)
[2025-03-23 12:42] LABS: BILIRUBIN, URINE NEGATIVE (negative); BLOOD/HGB, URINE TRACE-I (Negative); KETONE, URINE NEGATIVE (Negative); LEUK ESTERASE, URINE NEGATIVE (negative); NITRITE, URINE NEGATIVE (negative); PH, URINE 5.5 (5-7)
[2025-03-23 12:48] LABS: BACTERIA, URINE RARE /hpf (negative); CASTS, URINE NONE SEEN \\lpf; COLLECTION TYPE, URINE CATH; CRYSTALS, URINE NONE SEEN (0-1+); EPITHELIAL CELLS, URINE 0 /lpf (0-1+); REFLEX CULTURE, URINE No (No)
[2025-03-23] MEDS ORDERED: ACETAMINOPHEN-1 EAC1 PO (13:10)
[2025-03-23] MEDS ORDERED: ISOSORBIDE MONO30 MG PO (13:10)
[2025-03-23] MEDS ORDERED: SOD PHOSPHATE/SOD BIPHOSPHATE 132 ML BTL PR ONE (13:30)
[2025-03-23 13:40] LABS: BASOPHILS 0.1 % (0.2-1.2); HEMATOCRIT 28.8 % (40.1-51.0); HEMOGLOBIN 9.3 g/dL (13.7-17.5); MCH 28.4 PG (25.7-32.2); MCHC 32.3 g/dL (32.3-36.5); MCV 87.8 fL (79.0-92.2); MONOCYTES 9.6 % (5.3-12.2); NEUTROPHILS 78.5 % (34.0-67.9); PLATELET COUNT 96 K/uL (163-337); RBC 3.28 M/uL (4.63-6.08)
[2025-03-23 13:53] LABS: ALBUMIN 2.6 g/dL (3.4-5.0); ALBUMIN/GLOBULIN RATIO 0.72 (1.1-2.4); ANION GAP 10.6 (7-21); BILIRUBIN, TOTAL 0.8 mg/dL (0.2-1.0); BUN/CREATININE RATIO 21.78 (6.0-28.6); CALCIUM 7.9 mg/dL (8.5-10.1); CREATININE, SERUM 3.81 mg/dL (0.70-1.30); POTASSIUM 4.6 mmol/L (3.5-5.1); PROTEIN, TOTAL 6.2 g/dL (6.4-8.2)
[2025-03-23 15:30] VITALS: BP 106/50
== END 2025-03-23 15:32 | disposition home or self-care (01) ==
LOC: ED 11:07
PROVIDERS: Emergency Medicine
DX: K59.00 Constipation, unspecified (principal); E11.621 Type 2 diabetes mellitus with foot ulcer; I11.0 Hypertensive heart disease with heart failure; I50.9 Heart failure, unspecified; E11.40 Type 2 diabetes mellitus with diabetic neuropathy, unspecified; Z88.2 Allergy status to sulfonamides; Z79.899 Other long term (current) drug therapy; Z79.2 Long term (current) use of antibiotics; Z79.01 Long term (current) use of anticoagulants; Z79.890 Hormone replacement therapy
CPT/HCPCS: 36415; 74176; 80053; 81001; 83690; 85025; 99283-25